=== PATIENT | male | born 1960 | race Caucasian/White ===

== ENCOUNTER 2023-12-11 09:41 | Emergency (ER) | payer MEDICARE, SELFPAY ==
[2023-12-11 09:45] VITALS: BP 127/94; PULSE 92; RESP 18; TEMP 36.3; O2SAT 94; BMI 41.3
[2023-12-11 10:00] VITALS: PULSE 72; RESP 18; O2SAT 95
--- NOTE | 2023-12-11 10:11 | ED_ITS ---
HPI - SOB/Dyspnea General Chief Complaint: Shortness of Breath/Dyspnea Stated Complaint: shortness of breath/asthma Time Seen by Provider: 12/11/23 09:58 History of Present Illness HPI Narrative: This 63-year-old male comes in reporting some worsening shortness of breath. Actually he typically uses a DuoNeb and has run out of this medicine. He states that he had some oximetry readings around 89%. Upon arrival here he is at 94% on room air with normal heart rate. He does not report any upper respiratory infection symptoms Related Data Home Medications ?Medication ?Instructions ?Recorded ?Confirmed albuterol sulfate 90 mcg/actuation 2 puff inhalation Q6H PRN wheezing 12/11/23 12/11/23 aerosol inhaler atorvastatin 40 mg tablet 40 mg PO QPM 12/11/23 12/11/23 escitalopram oxalate 10 mg tablet 10 mg PO DAILY 12/11/23 12/11/23 glipizide 10 mg tablet, extended 10 mg PO DAILY 12/11/23 12/11/23 release 24 hr ipratropium 0.5 mg-albuterol 3 mg 1 inhalation Q6H PRN dyspnea 12/11/23 (2.5 mg base)/3 mL nebulization soln metformin 500 mg tablet,extended 1,000 mg PO BID 12/11/23 12/11/23 release 24 hr Previous Rx's ?Medication ?Instructions ?Recorded ipratropium 0.5 mg-albuterol 3 mg 3 ml inhalation Q6-8H PRN #30 mL 12/11/23 (2.5 mg base)/3 mL nebulization soln Allergies Allergy/AdvReac Type Severity Reaction Status Date / Time No Known Drug Allergies Allergy Verified 12/11/23 09:49 Review of Systems Status of ROS: Reports: 10 or more systems reviewed and unremarkable except as noted in History and below Narrative: Constitutional: No fevers, no weight gain or loss. Eyes: No discharge. No vision changes. HENT: No congestion, no sore throat, no ear pain. Cardiovascular: No chest pain, no palpitations. Respiratory: No wheezes, no cough. Persistent COPD symptoms. Gastrointestinal: No abdominal pain, no vomiting, no diarrhea. Genitourinary: No dysuria, no hematuria. Musculoskeletal: Normal range of motion. Skin: No rashes, no pruritis. Neurological: No dizziness, weakness, sensory change, speech change. Endo/Heme/Allergies: No bruising or bleeding. No polydipsia. Pysch: no suicidality, no anxiety, no insomnia. All other systems reviewed and are negative. Exam Narrative: Exam Narrative: Constitutional: Well-developed, well-nourished, no acute distress. HEENT: Normocephalic, atraumatic. Neck: Normal range of motion. Nontender. Supple. Heart: Regular. No murmurs. Normal rate. Intact distal pulses. Lungs: Clear to auscultation. No chest discomfort. No wheezes, rhonchi, or rales. Abdomen: Normal bowel sounds. Nontender. No rebound tenderness. Genitalia: Deferred. Back: No midline tenderness. Normal range of motion. Extremities: Normal range of motion. No injury. Skin: Intact. No rash. Warm. No erythema or pallor. Neurologic: No altered sensation. No weakness. Alert and oriented. Psychiatric: No suicidality. No anxiety or depression. No insomnia. Nursing notes and vitals signs are reviewed. Const: Vital Signs, click to edit/add: Vital Signs - 24 hr 12/11/23 09:45 Temperature 97.3 F L Pulse Rate [Pulse Oximeter] 92 Respiratory Rate 18 Blood Pressure [Ri ght Upper Arm] 127/94 H Pulse Oximetry 94 Oxygen Delivery Me thod Room Air Course Vital Signs Vital signs: Initial Vital Signs Temperature 97.3 F L 12/11/23 09:45 Temperature Source Temporal Artery Scan 12/11/23 09:45 Pulse Rate 92 12/11/23 09:45 Respiratory Rate 18 12/11/23 09:45 Blood Pressure 127/94 H 12/11/23 09:45 Blood Pressure Mean 105 12/11/23 09:45 Blood Pressure Position Sitting 12/11/23 09:45 Pulse Oximetry 94 12/11/23 09:45 Oxygen Delivery Method Room Air 12/11/23 09:45 Vital Signs Temperature 97.3 F L 12/11/23 09:45 Pulse Rate 92 12/11/23 09:45 Respiratory Rate 18 12/11/23 09:45 Blood Pressure 127/94 H 12/11/23 09:45 Pulse Oximetry 94 12/11/23 09:45 Oxygen Delivery Method Room Air 12/11/23 09:45 Temperature 97.3 F L 12/11/23 09:45 Pulse Rate 92 12/11/23 09:45 Respiratory Rate 18 12/11/23 09:45 Blood Pressure 127/94 H 12/11/23 09:45 Pulse Oximetry 94 12/11/23 09:45 Oxygen Delivery Method Room Air 12/11/23 09:45 MDM - SOB/Dyspnea MDM Narrative Medical decision making narrative: This patient typically uses a DuoNeb to manage his chronic breathing. He is also taking a preventative medicine it is a generic version of Advair. He arrives with normal vital signs and is not showing any sign of respiratory distress. Essentially he is looking for a refill of his DuoNeb medication. He did receive an oral dose of dexamethasone 10 mg here. I did also provide a prescription for DuoNeb medication. Discharge Plan Discharge Clinical Impression: COPD (chronic obstructive pulmonary disease) Patient Disposition: Home, Self-Care Condition: Stable Additional Instructions: Use medication as prescribed. Follow up with MD for ongoing management or return if worsening. Prescriptions: New ipratropium-albuterol 0.5 mg-3 mg(2.5 mg base)/3 mL solution for nebulization 3 ml inhalation Q6-8H PRNQty: 30 0RF No Action atorvastatin 40 mg tablet 40 mg PO QPM ipratropium-albuterol 0.5 mg-3 mg(2.5 mg base)/3 mL solution for nebulization 1 INHALATION Q6H PRN (Reason: dyspnea) glipizide 10 mg tablet extended release 24hr 10 mg PO DAILY albuterol sulfate 90 mcg/actuation HFA aerosol inhaler 2 puff inhalation Q6H PRN (Reason: wheezing) metformin 500 mg tablet extended release 24 hr 1,000 mg PO BID escitalopram oxalate 10 mg tablet 10 mg PO DAILY Stand Alone Forms: [employer] Info Instructions
[2023-12-11] MEDS: dexAMETHasone 10 MG/ML inj PO (10:15)
[2023-12-11 10:31] VITALS: BP 127/94; PULSE 92; RESP 18; TEMP 36.3
== END 2023-12-11 10:31 | disposition home or self-care (01) ==
LOC: ED 10:22
PROVIDERS: Emergency Provider Emergency Medicine Emergency Medical Services
DX: J44.9 Chronic obstructive pulmonary disease, unspecified (principal)
CPT/HCPCS: 99283; 99284; J1100

== ENCOUNTER 2024-01-01 06:53 | Emergency (ER) | payer MEDICARE, SELFPAY ==
[2024-01-01] VITALS (12 sets, daily range): BP systolic 123–149; BP diastolic 80–89; PULSE 86–100; RESP 22; TEMP 36.6; O2SAT 90–95; BMI 44.1
--- NOTE | 2024-01-01 07:18 | ED.GENADULT ---
HPI - General Adult General Chief complaint: Arrhythmia/Palpitations Stated complaint: elevated heart rate,chest discomfort Time Seen by Provider: 01/01/24 07:41 History of Present Illness HPI narrative: comes to ed with concerns of feeling sob, heart beating fast some jab of cp. feels increased sob with exertion. did drive self to ed. has a known aortic aneurysm that is being monitored. 63-year-old man presenting to the emergency department with concern of rapidly beating heart. He woke this morning feeling short of breath and with a heart rate in the 120s and at some point had a twinge of left low chest pain. Was very brief. Feeling improved now. He admits that his anxiety got the best of him. Has been more short of breath lately with some wheeze. He is requesting a refill on his albuterol inhaler which he says last him a few months. He also notes having a nebulizer which he used around midnight. He is unsure what he puts in at though does have DuoNebs available. He denies a history of COPD but does endorse a history of asthma. He may be using a steroid inhaler; budesonide? Denies history of CHF. Notes a monitored aortic aneurysm. Other review of systems he does reveal that he has been urinating quite a bit. There is no underlying history of diabetes. He would like a blood sugar check as it has been a couple of weeks. No fever. Has had a little cough lately. Is hoping to be discharged today as has a lot to do today specifically with his grandson. Last seen in this emergency department 3 weeks ago with a COPD exacerbation. Does have a history of diabetes as well. Related Data Home Medications ?Medication ?Instructions ?Recorded ?Confirmed albuterol sulfate 90 mcg/actuation 2 puff inhalation Q6H PRN wheezing 12/11/23 12/11/23 aerosol inhaler atorvastatin 40 mg tablet 40 mg PO QPM 12/11/23 12/11/23 escitalopram oxalate 10 mg tablet 10 mg PO DAILY 12/11/23 12/11/23 glipizide 10 mg tablet, extended 10 mg PO DAILY 12/11/23 12/11/23 release 24 hr ipratropium 0.5 mg-albuterol 3 mg 1 inhalation Q6H PRN dyspnea 12/11/23 (2.5 mg base)/3 mL nebulization soln metformin 500 mg tablet,extended 1,000 mg PO BID 12/11/23 12/11/23 release 24 hr Previous Rx's ?Medication ?Instructions ?Recorded ipratropium 0.5 mg-albuterol 3 mg 3 ml inhalation Q6-8H PRN #30 mL 12/11/23 (2.5 mg base)/3 mL nebulization soln Allergies Allergy/AdvReac Type Severity Reaction Status Date / Time No Known Drug Allergies Allergy Verified 12/11/23 09:49 Review of Systems Status of ROS: Reports: 6 or more systems reviewed and unremarkable except as noted in History and below [facility] Social History Smoking Status: Former smoker Do you use any of these nicotine containing products: None How often do you have a drink containing alcohol: never AUDIT-C Alcohol total score: 0 Non-prescribed substance use: denies use service: No Exam Narrative: Exam Narrative: Pleasant. NAD. Mildly anxious perhaps. Cranial nerves 2-12 intact. Moving all extremities without difficulty. Oropharynx is sticky. I thought I caught a wiff of ketones. Skin is warm and dry. Lower extremities with mild pretibial pitting edema. Lungs actually sound clear though distant. Same for heart would sounds to be in regular rhythm albeit a little elevated rate. Distant. Abdomen is obese and soft and nontender. Not able to reproduce this area of chest discomfort. Const: Vital Signs, click to edit/add: Vital Signs - 24 hr 01/01/24 07:01 Temperature 98 F Pulse Rate [Pulse Oximeter] 98 Respiratory Rate 22 Blood Pressure [Le ft Upper Arm] 127/82 Pulse Oximetry 93 Oxygen Delivery Me thod Room Air Documenting provider has reviewed patient's vital signs: yes Course Vital Signs Vital signs: Initial Vital Signs Temperature 98 F 01/01/24 07:01 Temperature Source Temporal Artery Scan 01/01/24 07:01 Pulse Rate 98 01/01/24 07:01 Pulse Rhythm Regular 01/01/24 07:01 Respiratory Rate 22 01/01/24 07:01 Blood Pressure 127/82 01/01/24 07:01 Blood Pressure Mean 97 01/01/24 07:01 Blood Pressure Position Supine 01/01/24 07:01 Pulse Oximetry 93 01/01/24 07:01 Oxygen Delivery Method Room Air 01/01/24 07:01 Vital Signs Temperature 98 F 01/01/24 07:01 Pulse Rate 98 01/01/24 07:01 Respiratory Rate 22 01/01/24 07:01 Blood Pressure 127/82 01/01/24 07:01 Pulse Oximetry 93 01/01/24 07:01 Oxygen Delivery Method Room Air 01/01/24 07:01 Temperature 98 F 01/01/24 07:01 Pulse Rate 98 01/01/24 07:01 Respiratory Rate 22 01/01/24 07:01 Blood Pressure 127/82 01/01/24 07:01 Pulse Oximetry 93 01/01/24 07:01 Oxygen Delivery Method Room Air 01/01/24 07:01 Medications Administered Medications: Generic Name Dose Route Start Last Admin Trade Name Freq PRN Reason Stop Dose Admin Sodium Chloride 500 mls @ 1,000 mls/hr 01/01/24 07:30 01/01/24 07:41 0.9 % Sodium Chloride 500 Ml IV 01/01/24 07:59 1,000 mls/hr .Q30M ONE Administration Medical Decision Making MDM Narrative Medical decision making narrative: Regarding his lungs, differential does include pneumonia, COPD or asthma exacerbation, tachyarrhythmia. I do not think that this has represented ischemic cardiovascular event. I do think anxiety is playing a role. His difficulty breathing might be poorly controlled restrictive or reactive lung disease compounded by belly restriction. Uncontrolled diabetes may have set off of heart rate as described. I have EKG prior to seeing Mr. Quiroz showing a sinus tachycardia at 102 Do not appreciate ischemic changes. There is some baseline irritability. Will check labs. 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 Discussed that what sounds like his steroid inhaler does not offer immediate relief for his breathing. Would try to clarify meds further. Medical Records Medical records reviewed: Yes I reviewed the patient's medical records ECG Data Attestation: I personally reviewed and interpreted this ECG as follows: (sinus tachycardia at 102 Do not appreciate ischemic changes. There is some baseline irritability) Discharge Plan Discharge Prescriptions: No Action atorvastatin 40 mg tablet 40 mg PO QPM ipratropium-albuterol 0.5 mg-3 mg(2.5 mg base)/3 mL solution for nebulization 1 INHALATION Q6H PRN (Reason: dyspnea) glipizide 10 mg tablet extended release 24hr 10 mg PO DAILY albuterol sulfate 90 mcg/actuation HFA aerosol inhaler 2 puff inhalation Q6H PRN (Reason: wheezing) metformin 500 mg tablet extended release 24 hr 1,000 mg PO BID escitalopram oxalate 10 mg tablet 10 mg PO DAILY ipratropium-albuterol 0.5 mg-3 mg(2.5 mg base)/3 mL solution for nebulization 3 ml inhalation Q6-8H PRNQty: 30 0RF Follow Up/Referrals: Provider,Not a Local [Primary Care Provider] -
--- NOTE | 2024-01-01 07:30 | XR_ITS ---
Patient: DANAE OLVERA Facility:?[facility] Patient ID:?[id number] Site Patient ID:?[id number]. Site :?[id number] Study:?XRay-Chest PORTABLE-01/01/2024 7:55:35 AM Ordering Physician:Beck Maxwell Final Report: INDICATION: Chest pain. TECHNIQUE: Chest 1 views. COMPARISON: None. FINDINGS: Cardiomegaly without pulmonary edema. No significant pleural effusion, pneumothorax or focal consolidation. No acute osseous findings. IMPRESSION: Cardiomegaly without pulmonary edema. No acute process. Dictated by Maria G Talbert MD @ 01/01/2024 8:08:31 AM Signed by:?Maria G Talbert MD @01/01/2024 8:08:31 AM (Electronic Signature)
[2024-01-01] MEDS: 0.9 % SODIUM CHLORIDE 500 ML 500 ML 1000 ML IV (07:41)
[2024-01-01 07:49] LABS: Basophils Absolute Auto 0.02 K/uL (0.00-0.30); Basophils Percent Auto 0.3 % (0.0-3.0); Eosinophils Absolute Auto 0.09 K/uL (0.00-0.50); Eosinophils Percent Auto 1.4 % (0.0-7.0); Hematocrit 41.2 % (37.0-53.0); Hemoglobin* 13.8 gm/dL (13.5-17.5); Immature Granulocytes Abs Auto 0.01 K/uL (0.00-0.30); Immature Granulocytes Pct Auto 0.2 %; Lymphocytes Percent Auto 9.3 % (20-44); Mean Corpuscular HGB Conc 34 gm/dL (32-36); Mean Corpuscular Hemoglobin 28 pg (26-34); Mean Corpuscular Volume 83 fL (80-100); Monocytes Percent Auto 6.4 % (0.0-11.0); Neutrophils Percent Auto 82.4 % (42.0-72.0); Platelet Count* 185 K/uL (140-440); RDW Coefficient of Variation % 13.5 % (11.5-15.5); Red Blood Count 4.98 m/uL (4.30-5.90); White Blood Count* 6.43 K/uL (4.50-11.00)
[2024-01-01 07:56] LABS: Slide Review Reflex No
[2024-01-01 08:01] LABS: Chloride* 98 mmol/L (96-114)
[2024-01-01 08:02] LABS: Potassium* 4.3 mmol/L (3.6-5.1); Sodium* 134 mmol/L (135-149)
[2024-01-01 08:04] LABS: Alanine Aminotransferase* 27 U/L (4-50); Alkaline Phosphatase* 106 U/L (40-150); Anion Gap 7 mEq/L (7-15); Aspartate Amino Transferase* 20 U/L (12-35); Bilirubin Direct* 0.1 mg/dL (0.0-0.5); Bilirubin Total* 0.5 mg/dL (0.1-1.5); Blood Urea Nitrogen* 22 mg/dL (7-30); Carbon Dioxide* 29 mmol/L (20-32); Creatinine* 0.7 mg/dL (0.5-1.5); Est. Creatinine Clearance* 71.25; Estimated Glomerular Filt Rate 102 ml/min; Glucose* 259 mg/dL (60-115); Total Protein* 6.8 g/dL (6.0-8.3)
[2024-01-01 08:05] LABS: Calcium* 9.5 mg/dL (8.4-10.6)
--- NOTE | 2024-01-01 08:19 | ED_ITS ---
HPI - General Adult General Chief complaint: Arrhythmia/Palpitations Stated complaint: elevated heart rate,chest discomfort Time Seen by Provider: 01/01/24 07:41 Source: patient Mode of arrival: ambulatory Limitations: no limitations History of Present Illness HPI narrative: Took over the care of Mr. Quiroz. Patient is a 63-year-old male with a history of asthma, obesity, diabetes, anxiety who presents today just before 8:00 a.m. with an episode of shortness of breath that started at 1:00 a.m. in the morning. Patient states that he got up to let his dogs out and as he was doing this he felt acutely short of breath and his heart was racing, he states that he put a finger pulse ox on his oxygen saturation was 89% and his pulse was 120. He states that he went back to bed and woke up around 4:00 a.m. and did not feel any better. He then proceeded to come to the ER for evaluation a few hours later. By the time he arrives in the ER he states that he feels better. The patient states that this has happened to him 1 time in the past and he came to the ER for evaluation ?nothing was found?. This is not something that happens regularly. Patient states that he takes albuterol at home daily and he is almost out of his inhaler. He states that he sees a doctor as he needs to but states that he does not have a regular doctor that he sees. He also states that he was on a daily asthma medication, unsure of what it was but he ran out of that also. Lastly, patient is concerned that his blood sugars might be elevated or poorly controlled. He complains of increased urination and thirst. Related Data Home Medications ?Medication ?Instructions ?Recorded ?Confirmed albuterol sulfate 90 mcg/actuation 2 puff inhalation Q6H PRN wheezing 12/11/23 12/11/23 aerosol inhaler atorvastatin 40 mg tablet 40 mg PO QPM 12/11/23 12/11/23 escitalopram oxalate 10 mg tablet 10 mg PO DAILY 12/11/23 12/11/23 glipizide 10 mg tablet, extended 10 mg PO DAILY 12/11/23 12/11/23 release 24 hr ipratropium 0.5 mg-albuterol 3 mg 1 inhalation Q6H PRN dyspnea 12/11/23 (2.5 mg base)/3 mL nebulization soln metformin 500 mg tablet,extended 1,000 mg PO BID 12/11/23 12/11/23 release 24 hr Previous Rx's ?Medication ?Instructions ?Recorded ipratropium 0.5 mg-albuterol 3 mg 3 ml inhalation Q6-8H PRN #30 mL 12/11/23 (2.5 mg base)/3 mL nebulization soln albuterol sulfate 90 mcg/actuation 2 puff inhalation QID PRN 01/01/24 aerosol inhaler shortness of breath or wheezing #8.5 grams ipratropium 0.5 mg-albuterol 3 mg 3 ml inhalation QID PRN #90 mL 01/01/24 (2.5 mg base)/3 mL nebulization soln Allergies Allergy/AdvReac Type Severity Reaction Status Date / Time No Known Drug Allergies Allergy Verified 12/11/23 09:49 Review of Systems Status of ROS: Reports: 10 or more systems reviewed and unremarkable except as noted in History and below PFSH [facility] Social History Smoking Status: Former smoker Do you use any of these nicotine containing products: None How often do you have a drink containing alcohol: never AUDIT-C Alcohol total score: 0 Non-prescribed substance use: denies use service: No Exam Narrative: Exam Narrative: Well-nourished well-developed patient in no acute distress. When I enter the room to examine the patient, he is sleeping. His heart rate is 89, oxygen saturation is 94%. Upon arousal, Alert and oriented. Answers questions appropriately. Mood and affect are appropriate. Thoughts are goal oriented and rational. No tangential or magical thinking noted. Patient speaks in full sentences without needing to catch him breath. HEENT: Normocephalic atraumatic. Pupils are equally round reactive to light. Extraocular muscles are intact. Conjunctivae are moist without any icterus noted. Moist, sticky mucous membranes. Posterior pharynx is normal. Cardiovascular: Heart is regular rate and rhythm S1 and S2 are present without any murmurs. Lungs: Clear to auscultation bilaterally but breath sounds decreased bilaterally. Abdomen: Soft, protuberant, nontender. Extremities: Bilateral lower extremities show 1+ pitting edema bilaterally Skin: Well perfused. Const: Vital Signs, click to edit/add: Vital Signs - 24 hr 01/01/24 07:01 01/01/24 07:10 01/01/24 07:11 Temperature 98 F Pulse Rate 98 100 Pulse Rate [Pulse Oximeter] 98 Respiratory Rate 22 Blood Pressure 127/82 Blood Pressure [Le ft Upper Arm] 127/82 Pulse Oximetry 93 94 93 Oxygen Delivery Me thod Room Air 01/01/24 07:15 01/01/24 07:30 01/01/24 07:32 Temperature Pulse Rate 97 95 98 Pulse Rate [Pulse Oximeter] Respiratory Rate Blood Pressure 149/89 H Blood Pressure [Le ft Upper Arm] Pulse Oximetry 94 94 90 Oxygen Delivery Me thod 01/01/24 07:45 01/01/24 08:00 01/01/24 08:02 Temperature Pulse Rate 93 94 93 Pulse Rate [Pulse Oximeter] Respiratory Rate Blood Pressure 123/80 Blood Pressure [Le ft Upper Arm] Pulse Oximetry 92 90 92 Oxygen Delivery Me thod 01/01/24 08:15 01/01/24 08:30 01/01/24 08:32 Temperature Pulse Rate 92 86 89 Pulse Rate [Pulse Oximeter] Respiratory Rate Blood Pressure 142/84 H Blood Pressure [Le ft Upper Arm] Pulse Oximetry 90 95 94 Oxygen Delivery Me thod Course Course ED Course: I reviewed the patient's EKG which showed sinus tachycardia with a pulse of 102, left axis deviation and incomplete right bundle-branch block. His CBC is unremarkable. Chemistries show a sodium of 134, otherwise unremarkable. Glucose is elevated at 259. LFTs are normal. BNP is less than 20. Normal CRP. UA has 2+ glucose. Normal troponin. Reviewed his chest x-ray which did not show any acute pathology. Went back into the room to reviews patient's lab results and he stated that his wheezing was coming back and he felt anxious. Examine him at this point and he had no wheezing, oxygenation was in the mid 90s and his respiratory rate was unchanged. I discussed with him that I think his anxiety is playing a part in his symptoms. Patient did feel reassured after a lung examination revealed no active wheezing. Vital Signs Vital signs: Initial Vital Signs Temperature 98 F 01/01/24 07:01 Temperature Source Temporal Artery Scan 01/01/24 07:01 Pulse Rate 98 01/01/24 07:01 Pulse Rhythm Regular 01/01/24 07:01 Respiratory Rate 22 01/01/24 07:01 Blood Pressure 127/82 01/01/24 07:01 Blood Pressure Mean 97 01/01/24 07:01 Blood Pressure Position Supine 01/01/24 07:01 Pulse Oximetry 93 01/01/24 07:01 Oxygen Delivery Method Room Air 01/01/24 07:01 Vital Signs Temperature 98 F 01/01/24 07:01 Pulse Rate 98 01/01/24 07:01 Respiratory Rate 22 01/01/24 07:01 Blood Pressure 127/82 01/01/24 07:01 Pulse Oximetry 93 01/01/24 07:01 Oxygen Delivery Method Room Air 01/01/24 07:01 Temperature 98 F 01/01/24 07:01 Pulse Rate 89 01/01/24 08:32 Respiratory Rate 22 01/01/24 07:01 Blood Pressure 142/84 H 01/01/24 08:32 Pulse Oximetry 94 01/01/24 08:32 Oxygen Delivery Method Room Air 01/01/24 07:01 Medications Administered Medications: Discontinued Medications Generic Name Dose Route Start Last Admin Trade Name Freq PRN Reason Stop Dose Admin Sodium Chloride 500 mls @ 1,000 mls/hr 01/01/24 07:30 01/01/24 08:22 0.9 % Sodium Chloride 500 Ml IV 01/01/24 07:59 Infused .Q30M ONE Infusion Medical Decision Making MDM Narrative Medical decision making narrative: 63-year-old male with a history of asthma presenting with acute shortness of breath and palpitations. Patient remained asymptomatic while he was in the ER. Patient does tell me that he feels very fatigued during the day and falls asleep frequently. He has not had a sleep study in the past. Lastly he does tell me that he is taking all of his diabetic medications but has not been checking his sugars and unclear what his follow-up has been like. At this time I recommend the patient establish care with 1 primary care provider that he can see regularly. He needs to have his asthma care and his diabetic management maximized. I recommend a sleep study. He may also benefit from a stress test if this is not been done recently. Lab Data Lab results reviewed: Yes I reviewed the patient's lab results Labs: Lab Results 01/01/24 01/01/24 01/01/24 Range/Units 07:40 08:21 08:43 WBC 6.43 (4.50-11.00) K/uL RBC 4.98 (4.30-5.90) m/uL Hgb 13.8 (13.5-17.5) gm/dL Hct 41.2 (37.0-53.0) % MCV 83 (80-100) fL MCH 28 (26-34) pg MCHC 34 (32-36) gm/dL RDW Coeff of [place] 13.5 (11.5-15.5) % Plt Count 185 (140-440) K/uL Neut % (Auto) 82.4 H (42.0-72.0) % Lymph % (Auto) 9.3 L (20-44) % [place] % (Auto) 6.4 (0.0-11.0) % Eos % (Auto) 1.4 (0.0-7.0) % Baso % (Auto) 0.3 (0.0-3.0) % Neut # (Auto) 5.30 (1.7-7.0) K/uL Lymph # (Auto) 0.60 L (0.90-2.90) K/uL [place] # (Auto) 0.40 (0.00-0.90) K/UL Eos # (Auto) 0.09 (0.00-0.50) K/uL Baso # (Auto) 0.02 (0.00-0.30) K/uL Abs Immat Gran (auto) 0.01 (0.00-0.30) K/uL Imm/Tot Granulo (auto) 0.2 % Sodium 134 L (135-149) mmol/L Potassium 4.3 (3.6-5.1) mmol/L Chloride 98 (96-114) mmol/L Carbon Dioxide 29 (20-32) mmol/L Anion Gap 7 (7-15) mEq/L BUN 22 (7-30) mg/dL Creatinine 0.7 (0.5-1.5) mg/dL Estimated Creat Clear 71.25 Estimated GFR 102 ml/min Glucose 259 H (60-115) mg/dL Calcium 9.5 (8.4-10.6) mg/dL Total Bilirubin 0.5 (0.1-1.5) mg/dL Direct Bilirubin 0.1 (0.0-0.5) mg/dL AST 20 (12-35) U/L ALT 27 (4-50) U/L Alkaline Phosphatase 106 (40-150) U/L Troponin I < 0.01 L (0.01-0.04) ng/mL C-Reactive Protein 0.7 (0.5-1.0) mg/dL NT-Pro-B Natriuret Pep < 20 pg/mL Total Protein 6.8 (6.0-8.3) g/dL Albumin 4.0 (3.3-5.0) g/dL Urine Color Yellow (Yellow) Urine Appearance Clear (Clear) Urine pH 5.5 (5.0-8.5) Ur Specific [place] 1.020 (1.000-1.030) Urine Protein Negative (Negative) Urine Glucose (UA) 2+ A (Negative) Urine Ketones Negative (Negative) Urine Blood Negative (Negative) Urine Nitrite Negative (Negative) Urine Bilirubin Negative (Negative) Urine Urobilinogen 0.2 (0.2-1.0) Ur Leukocyte Esterase Negative (Negative) Urine RBC 0-2 (0-2) Urine WBC 0-2 (0-5) Ur Squamous Epith Cells Few (None-Few) Urine Bacteria None (None) SARS-CoV-2 (PCR) Negative SARS-CoV-2 (Negative) Influenza Type A (PCR) Negative PCR FLU A (Negative) Influenza Type B (PCR) Negative PCR FLU B (Negative) RSV (PCR) Negative PCR RSV (Negative) Imaging Data Chest x-ray: Attestation: I have reviewed the pertinent imaging results. Radiologist's impression: Chest 1 views. COMPARISON: None. FINDINGS: Cardiomegaly without pulmonary edema. No significant pleural effusion, pneumothorax or focal consolidation. No acute osseous findings. IMPRESSION: Cardiomegaly without pulmonary edema. No acute process. ECG Data Attestation: I personally reviewed and interpreted this ECG as follows: Discharge Plan Discharge Clinical Impression: Anxiety, Sinus tachycardia, Asthma, Diabetes Patient Disposition: Home, Self-Care Additional Instructions: Your albuterol inhaler has been refilled and sent to your pharmacy. DuoNebs were also refilled and sent to your pharmacy. Your glucose was elevated today. I recommend you follow-up with your primary care provider to discuss your diabetes medications and see if they need to be changed. Please follow-up in primary care to clarify your lung disease and whether not yo ur medications are working; optimize treatment. At this time I recommend you establish care with 1 primary care provider that you can see regularly. You needs to have your asthma care and you diabetic management maximized- you may need changes in your medications. I also recommend a sleep study- this may answer why feel so tired during the day and short of breath 1st thing in the morning. You may also benefit from a stress test if this is not been done recently. This is a test that makes sure that your heart is healthy. You should discuss this with your primary care provider. Prescriptions: New albuterol sulfate 90 mcg/actuation HFA aerosol inhaler 2 puff inhalation QID PRN (Reason: shortness of breath or wheezing) Qty: 8.5 1RF ipratropium-albuterol 0.5 mg-3 mg(2.5 mg base)/3 mL solution for nebulization 3 ml inhalation QID PRNQty: 90 0RF No Action atorvastatin 40 mg tablet 40 mg PO QPM ipratropium-albuterol 0.5 mg-3 mg(2.5 mg base)/3 mL solution for nebulization 1 INHALATION Q6H PRN (Reason: dyspnea) glipizide 10 mg tablet extended release 24hr 10 mg PO DAILY albuterol sulfate 90 mcg/actuation HFA aerosol inhaler 2 puff inhalation Q6H PRN (Reason: wheezing) metformin 500 mg tablet extended release 24 hr 1,000 mg PO BID escitalopram oxalate 10 mg tablet 10 mg PO DAILY ipratropium-albuterol 0.5 mg-3 mg(2.5 mg base)/3 mL solution for nebulization 3 ml inhalation Q6-8H PRNQty: 30 0RF Follow Up/Referrals: Provider,Not a Local [Primary Care Provider] - Stand Alone Forms: [employer] Info Instructions
[2024-01-01 08:20] LABS: NT Pro B Type NatriureticPept* < 20 pg/mL
[2024-01-01 08:53] LABS: Appearance Urine Clear (Clear); Bilirubin Urine Negative (Negative); Blood Urine Negative (Negative); Color Urine Yellow (Yellow); Glucose Urine 2+ (Negative); Ketones Urine Negative (Negative); Leukocyte Esterase Urine Negative (Negative); Nitrite Urine Negative (Negative); Protein Urine Negative (Negative); Urobilinogen Urine 0.2 (0.2-1.0); pH Urine 5.5 (5.0-8.5)
[2024-01-01 08:58] LABS: C Reactive Protein* 0.7 mg/dL (0.5-1.0)
[2024-01-01 09:04] LABS: RBC Urine 0-2 (0-2); Squamous Epithelial Cell Urine Few (None-Few); WBC Urine 0-2 (0-5)
[2024-01-01 09:10] LABS: Troponin I* < 0.01 ng/mL (0.01-0.04)
[2024-01-01 09:15] LABS: PCR FLU A Negative PCR FLU A (Negative); PCR FLU B Negative PCR FLU B (Negative); PCR RSV Negative PCR RSV (Negative); SARS PCR* Negative SARS-CoV-2 (Negative)
== END 2024-01-01 09:39 | disposition home or self-care (01) ==
PROVIDERS: Family Medicine; Emergency Provider Family Medicine
DX: F41.9 Anxiety disorder, unspecified (principal); R00.0 Tachycardia, unspecified; J45.909 Unspecified asthma, uncomplicated; E11.9 Type 2 diabetes mellitus without complications
CPT/HCPCS: 36415; 71045; 80048; 80076; 81001; 83880; 84484; 85025; 86140; 87631; 96360; 99284; J7030

== ENCOUNTER 2024-01-18 21:10 | Emergency (ER) | payer MEDICARE, SELFPAY ==
[2024-01-18 21:18] VITALS: BP 153/90; PULSE 85; PULSE 87; RESP 18; RESP 20; TEMP 37.1; O2SAT 96; O2SAT 97; BMI 39.9
--- NOTE | 2024-01-18 21:29 | ED_ITS ---
HPI - Chest Pain General Chief Complaint: Chest Pain Stated Complaint: Chest pain Time Seen by Provider: 01/18/24 21:28 History of Present Illness HPI narrative: 63-year-old male presenting to the ER today for chest pain. He has a history of asthma, elevated BMI, diabetes anxiety. He also reports a history of a thoracic aortic aneurysm (apparently diagnosed incidentally several years ago and has been following with Cardiology through [place] with annual surveillance CTs. He says that his aneurysm has been stable in size for several years). Per triage, He reports that he has had chest pain off on all days along with episodes lasting only a few seconds each. No nausea. No vomiting. No shortness of breath. No cough. No recent fever. Patient says that his pain started this morning when he was at work around 9:00 a.m.. He does not really know what brought it on. It happened after he was at the office and walking out to his truck. 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 He notes that he was stressed out this morning at work because 1 of his coworkers got fired. He is worried that he may get fire next. Apparently he gets a lot of, ?Perks? that he thinks might make him a target for termination. He also notices a lot of stress at home with his . It sounds like they argue a lot and they are having financial stress. His pain and this morning was a very brief twinge of pain affecting his left anterior chest wall just lateral to the left sternal border inferior to his nipple. It happened a few times in each episode only lasted a 2nd or so. No clear trigger. Not clearly related to exertion. He had a few more episodes of pain during the afternoon while at work. However it sounds like it was sporadic and all episodes were brief. He had more episodes of of pain this evening at home, after work. He was doing some light exercise. He had a walk down the steps to his basement [facility] and then come back up. He made a total of 2 cyst trips down and up steps. During 1 of the trips he had a couple of twinges of pain. During the other Trip he had no pain. He has no history of coronary disease. It does not sound like he has ever had an angiogram. He may have had a stress test some years ago through his doctors at [place]. No other symptoms today. No shortness of breath. No cough. No hemoptysis. No abdominal pain. He does know that he has gallstones but has not been having any pain like that for at least several days. No swelling in his legs. No recent travel. He does not take any aspirin or blood thinners. He is a nonsmoker. He has a history of asthma but rarely has to use his nebulizer. Risk factors for coronary disease include male gender, age, elevated BMI, diabetes, dyslipidemia. He has a family history in his uncle. Related Data Home Medications ?Medication ?Instructions ?Recorded ?Confirmed atorvastatin 40 mg tablet 40 mg PO QPM 12/11/23 01/18/24 escitalopram oxalate 10 mg tablet 10 mg PO DAILY 12/11/23 01/18/24 glipizide 10 mg tablet, extended 10 mg PO DAILY 12/11/23 01/18/24 release 24 hr metformin 500 mg tablet,extended 1,000 mg PO BID 12/11/23 01/18/24 release 24 hr ondansetron HCl 4 mg tablet 4 mg PO Q8H PRN 01/18/24 01/18/24 Previous Rx's ?Medication ?Instructions ?Recorded ipratropium 0.5 mg-albuterol 3 mg 3 ml inhalation Q6-8H PRN #30 mL 12/11/23 (2.5 mg base)/3 mL nebulization soln albuterol sulfate 90 mcg/actuation 2 puff inhalation QID PRN 01/01/24 aerosol inhaler shortness of breath or wheezing #8.5 grams Allergies Allergy/AdvReac Type Severity Reaction Status Date / Time No Known Drug Allergies Allergy Verified 01/18/24 21:28 [facility] Social History Smoking Status: Former smoker Do you use any of these nicotine containing products: None Second hand tobacco smoke exposure: No How often do you have a drink containing alcohol: never AUDIT-C Alcohol total score: 0 Non-prescribed substance use: denies use service: No Exam Narrative Exam Narrative: Constitutional: Appears well-developed and well-nourished. Alert. Conversant. Non toxic. HENT: Head: Atraumatic. Nose: Nose normal. Mouth/Throat: Oral mucosa is clear and moist. no trismus. Pharynx normal. Tonsils symmetric. No tonsillar enlargement, erythema, or exudate. Eyes: Conjunctivae normal. EOM normal. Pupils equal, round, and reactive to light. No scleral icterus. Neck: Normal range of motion. Neck supple. No tracheal deviation present. Cardiovascular: Normal rate, regular rhythm. He did have 1 skipped beat while I was auscultating his heart and this corresponded to a PVC on his monitor but did not correspond to a episode of pain. No gallop. No friction rub. No murmur heard. Symmetric radial and PT artery pulses Pulmonary/Chest: Effort normal. No stridor. No respiratory distress. No wheezes. No rales. No rhonchi . No tenderness. No rash. Abdominal: Soft. No distension. No mass. No tenderness. No Magallanes sign No rebound. No guarding. Musculoskeletal: RUE: Normal range of motion. No tenderness. No deformity LUE: Normal range of motion. No tenderness. No deformity RLE: Normal range of motion. No edema. No tenderness. No deformity LLE: Normal range of motion. No edema. No tenderness. No deformity Neurological: Alert and oriented to person, place, and time. Normal strength. CN II-VII intact. No sensory deficit. GCS eye subscore is 4. GCS verbal subscore is 5. GCS motor subscore is 6. Normal coordination Skin: Skin is warm and dry. No rash noted. No pallor. Normal capillary refill. Psychiatric: Normal mood. Somewhat anxious. He does talk about a lot of stress at home and his job. He jumps rapidly from topic to topic. Const Vital Signs, click to edit/add: Vital Signs - 24 hr 01/18/24 21:18 01/18/24 21:18 01/18/24 21:59 Temperature 98.7 F Pulse Rate 87 Pulse Rate [Right Pulse Oximeter] 85 Respiratory Rate 20 18 Blood Pressure 153/90 H Blood Pressure [Right Upper Arm] 153/90 H Pulse Oximetry 97 96 96 Oxygen Delivery Method Room Air 01/18/24 23:02 01/18/24 23:20 Temperature 98.7 F Pulse Rate 78 Pulse Rate [Right Pulse Oximeter] 78 Respiratory Rate 20 20 Blood Pressure 131/89 Blood Pressure [Right Upper Arm] 128/84 Pulse Oximetry 92 92 Oxygen Delivery Method Room Air Course Course ED Course: Recheck-notes that after he received his baby aspirin his chest pain. When the patient reported this to me, I remarked that it was unusual for baby aspirin to cause such good analgesia and that it was not intended as a analgesics, but rather as an anti-platelet agent for potential ACS, the patient then said he started feeling his chest pain again. Suggest a possible placebo effect in response to the aspirin. Repeat heart exam is still normal. Lung exam still cleared. No wheezing. Vital Signs Vital signs: Initial Vital Signs Temperature 98.7 F 01/18/24 21:18 Temperature Source Temporal Artery Scan 01/18/24 21:18 Pulse Rate 87 01/18/24 21:18 Respiratory Rate 20 01/18/24 21:18 Respiratory Effort Normal, Spontaneous, Non-Labored 01/18/24 21:18 Respiratory Depth Normal 01/18/24 21:18 Respiratory Pattern Normal 01/18/24 21:18 Blood Pressure 153/90 H 01/18/24 21:18 Blood Pressure Mean 111 H 01/18/24 21:18 Blood Pressure Position Sitting 01/18/24 21:18 Pulse Oximetry 97 01/18/24 21:18 Oxygen Delivery Method Room Air 01/18/24 21:18 Vital Signs Temperature 98.7 F 01/18/24 21:18 Pulse Rate 87 01/18/24 21:18 Respiratory Rate 20 01/18/24 21:18 Blood Pressure 153/90 H 01/18/24 21:18 Pulse Oximetry 97 01/18/24 21:18 Oxygen Delivery Method Room Air 01/18/24 21:18 Temperature 98.7 F 01/18/24 23:20 Pulse Rate 78 01/18/24 23:20 Respiratory Rate 20 01/18/24 23:20 Blood Pressure 128/84 01/18/24 23:20 Pulse Oximetry 92 01/18/24 23:20 Oxygen Delivery Method Room Air 01/18/24 23:20 Medications Administered Medications: Discontinued Medications Generic Name Dose Route Start Last Admin Trade Name Freq PRN Reason Stop Dose Admin Aspirin 324 mg 01/18/24 21:52 01/18/24 21:56 Aspirin 81 Mg Tab.Chew PO 01/18/24 21:53 324 mg ONCE ONE Administration MDM - Chest Pain MDM Narrative Medical decision making narrative: This patient presents to the ER today for evaluation of chest pain. Differential was broad. No evidence of palpitations, syncope or other cardiac dysrhythmia. We considered possible ACS, however description of the symptoms would be atypical. He is only having brief twinges of pain which last a 2nd or less each episode. Nonetheless given age and risk factors, workup with EKG and troponin is negative. HEART score is 4. Given time since onset of symptoms, we did obtain an delta troponins which are undetectable. I do not think the patient needs to be admitted for further sets of enzymes. Although pain is pretty atyp ical for ACS would recommend close outpatient follow-up for further workup and consideration for stress testing. EKG shows no evidence for pericarditis. Clinical presentation not suggestive of myocarditis. Chest x-ray shows no evidence for pneumonia, pneumothorax, pulmonary edema, pleural effusion, rib fracture, cardiomegaly. He does have a history of a thoracic aortic aneurysm, but Mediastinum is normal on the x-ray. The patient has no ripping or tearing pain through to the back and has symmetric pulses on exam, no other acute neuro findings so I doubt aortic dissection. Risk of radiation and contrast exposure would outweigh the benefit of CT angiogram. We considered PE for this patient. Overall would be low risk. He is low risk by years criteria and D-dimer is less than 1000, therefore CT PA not indicated. No wheezing or bronchospasm to suggest COPD/asthma. No signs of chest wall cellulitis, shingles, injury. Consider possible anxiety is a trigger for pain. With reasonable clinical confidence, I think the patient is safe for outpatient follow up. Discussed return precautions. Questions answered. Patient voices comfort with the plan. Lab Data Labs: Lab Results 01/18/24 01/18/24 Range/Units 21:20 23:50 WBC 6.21 (4.50-11.00) K/uL RBC 5.09 (4.30-5.90) m/uL Hgb 14.2 (13.5-17.5) gm/dL Hct 42.1 (37.0-53.0) % MCV 83 (80-100) fL MCH 28 (26-34) pg MCHC 34 (32-36) gm/dL RDW Coeff of Adama 13.2 (11.5-15.5) % Plt Count 201 (140-440) K/uL Neut % (Auto) 69.5 (42.0-72.0) % Lymph % (Auto) 19.8 L (20-44) % Dubois % (Auto) 7.9 (0.0-11.0) % Eos % (Auto) 1.9 (0.0-7.0) % Baso % (Auto) 0.3 (0.0-3.0) % Neut # (Auto) 4.31 (1.7-7.0) K/uL Lymph # (Auto) 1.20 (0.90-2.90) K/uL Dubois # (Auto) 0.50 (0.00-0.90) K/UL Eos # (Auto) 0.12 (0.00-0.50) K/uL Baso # (Auto) 0.02 (0.00-0.30) K/uL Abs Immat Gran (auto) 0.04 (0.00-0.30) K/uL Imm/Tot Granulo (auto) 0.6 % D-Dimer Quant (PE/DVT) 0.54 H (0.00-0.50) ug/ml Sodium 135 (135-149) mmol/L Potassium 3.9 (3.6-5.1) mmol/L Chloride 99 (96-114) mmol/L Carbon Dioxide 27 (20-32) mmol/L Anion Gap 9 (7-15) mEq/L BUN 17 (7-30) mg/dL Creatinine 0.7 (0.5-1.5) mg/dL Estimated Creat Clear 73.65 Estimated GFR 102 ml/min Glucose 207 H (60-115) mg/dL Calcium 9.0 (8.4-10.6) mg/dL Magnesium 2.0 (1.5-2.6) mg/dL POC Troponin I 0.00 L 0.00 L (0.01-0.04) ng/ml ECG Data Attestation: I personally reviewed and interpreted this ECG as follows: Interpretation: Normal sinus rhythm Rate: 83 OR: 142 QRS axis: Left axis deviation. ST segment/T wave: No ST segment elevation or depression. T-wave inversion AVR, V1. QTc: 413 Unchanged compared to 01/01/2024 Discharge Plan Discharge Clinical Impression: Chest pain Instructions: Chest Pain (DC) Additional Instructions: As we discussed, so far your workup done here in the ER looks reassuring. No signs of a heart attack or other serious cause for her chest pain. However I want you to monitor your symptoms very carefully and if you are having worsening chest pain, more frequent episodes of pain, changing location of your pain, trouble breathing, nausea or vomiting, fever, or other problems, please come back to the ER right away. Even if you continue to get better, please follow-up with your regular doctor or your airport ramp attendant within 3-5 days for a recheck. Ask your doctors to arrange a stress test for your heart. Prescriptions: No Action atorvastatin 40 mg tablet 40 mg PO QPM glipizide 10 mg tablet extended release 24hr 10 mg PO DAILY metformin 500 mg tablet extended release 24 hr 1,000 mg PO BID escitalopram oxalate 10 mg tablet 10 mg PO DAILY ipratropium-albuterol 0.5 mg-3 mg(2.5 mg base)/3 mL solution for nebulization 3 ml inhalation Q6-8H PRNQty: 30 0RF albuterol sulfate 90 mcg/actuation HFA aerosol inhaler 2 puff inhalation QID PRN (Reason: shortness of breath or wheezing) Qty: 8.5 1RF ondansetron HCl 4 mg tablet 4 mg PO Q8H PRN Follow Up/Referrals: Provider,Not a Local [Non-Staff] - Stand Alone Forms: [employer] Call Info Instructions
[2024-01-18 21:39] LABS: Basophils Absolute Auto 0.02 K/uL (0.00-0.30); Basophils Percent Auto 0.3 % (0.0-3.0); Eosinophils Absolute Auto 0.12 K/uL (0.00-0.50); Eosinophils Percent Auto 1.9 % (0.0-7.0); Hematocrit 42.1 % (37.0-53.0); Hemoglobin* 14.2 gm/dL (13.5-17.5); Immature Granulocytes Abs Auto 0.04 K/uL (0.00-0.30); Immature Granulocytes Pct Auto 0.6 %; Lymphocytes Percent Auto 19.8 % (20-44); Mean Corpuscular HGB Conc 34 gm/dL (32-36); Mean Corpuscular Hemoglobin 28 pg (26-34); Mean Corpuscular Volume 83 fL (80-100); Monocytes Percent Auto 7.9 % (0.0-11.0); Neutrophils Absolute Auto 4.31 K/uL (1.7-7.0); Neutrophils Percent Auto 69.5 % (42.0-72.0); Platelet Count* 201 K/uL (140-440); RDW Coefficient of Variation % 13.2 % (11.5-15.5); Red Blood Count 5.09 m/uL (4.30-5.90); White Blood Count* 6.21 K/uL (4.50-11.00)
[2024-01-18 21:42] LABS: Chloride* 99 mmol/L (96-114)
[2024-01-18 21:43] LABS: Potassium* 3.9 mmol/L (3.6-5.1); Sodium* 135 mmol/L (135-149)
[2024-01-18 21:45] LABS: Creatinine* 0.7 mg/dL (0.5-1.5); Est. Creatinine Clearance* 73.65; Estimated Glomerular Filt Rate 102 ml/min
[2024-01-18 21:46] LABS: Anion Gap 9 mEq/L (7-15); Blood Urea Nitrogen* 17 mg/dL (7-30); Carbon Dioxide* 27 mmol/L (20-32); Glucose* 207 mg/dL (60-115)
[2024-01-18 21:48] LABS: Slide Review Reflex No
[2024-01-18 21:50] LABS: D Dimer Quantitative* 0.54 ug/ml (0.00-0.50)
--- NOTE | 2024-01-18 21:52 | CRLHL7_ITS ---
For Patients: As a result of the Century Cures Act, medical imaging exams and procedure reports are released immediately into your electronic medical record. You may view this report before your referring provider. If you have questions, please contact your health care provider. INDICATION: Dyspnea. TECHNIQUE: Chest radiographs, 2 views. COMPARISON: Chest radiograph 01/01/2024. FINDINGS: Cardiovascular/Mediastinum: Normal heart size. Unremarkable. Lungs: No focal consolidation. Subsegmental atelectasis. Airways: Trachea remains midline. Pleura: No pleural effusions or pneumothorax. Bones: No acute osseous abnormalities. Upper abdomen: Unremarkable. IMPRESSION: No acute cardiopulmonary process. Dictated by Brad Richard MD @ 01/18/2024 10:21:26 PM (Electronically Signed)
[2024-01-18] MEDS: ASPIRIN 81 MG TAB.CHEW 324 MG PO (21:56)
[2024-01-18 21:59] VITALS: O2SAT 96
[2024-01-18 23:02] VITALS: BP 131/89; PULSE 78; RESP 20; O2SAT 92
[2024-01-18 23:20] VITALS: BP 128/84; PULSE 78; RESP 20; TEMP 37.1; O2SAT 92
[2024-01-19 00:28] VITALS: BP 129/79; PULSE 74; RESP 20; TEMP 37.1; O2SAT 92
[2024-01-19 00:29] VITALS: BP 129/79; PULSE 74; RESP 20; TEMP 37.1
== END 2024-01-19 00:47 | disposition home or self-care (01) ==
PROVIDERS: Emergency Provider Emergency Medicine
DX: R07.9 Chest pain, unspecified (principal)
CPT/HCPCS: 36415; 71046; 80048; 83735; 84484; 85025; 85379; 93005; 94761; 99283; 99284; 99285; A9270

== ENCOUNTER 2024-01-31 19:04 | Emergency (ER) | payer MEDICARE, SELFPAY ==
[2024-01-31 19:13] VITALS: BP 121/80; PULSE 88; RESP 22; TEMP 36.6; O2SAT 96; BMI 41.6
--- NOTE | 2024-01-31 19:51 | CRLHL7_ITS ---
For Patients: As a result of the Century Cures Act, medical imaging exams and procedure reports are released immediately into your electronic medical record. You may view this report before your referring provider. If you have questions, please contact your health care provider. INDICATION: Right arm numbness. TECHNIQUE: CTA head and neck with 95 cc Isovue 370 intravenous contrast administered. Multiplanar reformats and MIP reconstructions are included. COMPARISON: None. FINDINGS: CTA head: The anterior cerebral arteries are patent.The middle cerebral arteries are patent.The posterior cerebral arteries are patent.The intracranial internal carotid arteries are patent.The intradural vertebral arteries and basilar arteries are patent.No aneurysm or vascular malformation. CTA neck: The aortic arch and great vessel origins are patent.The proximal subclavian arteries are patent.The common carotid arteries are patent and demonstrate a medial retropharyngeal course.The internal carotid arteries are patent.The cervical vertebral arteries are patent.No evidence of cervical arterial dissection. Cervical soft tissues: No significant pathology. Osseous structures: Scattered spondylosis without high-grade bony spinal canal/neural foraminal stenosis. Lung apices: No suspicious lesions. IMPRESSION: 1. No emergent large vessel occlusion or high-grade intracranial arterial stenosis. No other intracranial arterial vascular abnormalities. 2. No high-grade cervical arterial stenosis. No evidence of cervical arterial dissection. Please note that all CT scans at this facility use dose modulation, iterative reconstruction, and/or weight-based dosing when appropriate to reduce radiation dose to as low as reasonably achievable. Dictated by Kurt Casiano MD @ 01/31/2024 8:38:39 PM (Electronically Signed)
--- NOTE | 2024-01-31 19:51 | CRLHL7_ITS ---
For Patients: As a result of the Century Cures Act, medical imaging exams and procedure reports are released immediately into your electronic medical record. You may view this report before your referring provider. If you have questions, please contact your health care provider. INDICATION: Right arm numbness. TECHNIQUE: CT of the head without contrast. Coronal and sagittal reformats are included. COMPARISON: None. FINDINGS: No CT evidence of acute cortical infarct. No loss of freeman white matter differentiation. No hyperdense vessels to suggest intracranial thrombus. No acute intracranial hemorrhage. No mass effect or midline shift. No hydrocephalus or extra-axial collections. Small calcification within the left frontal centrum semiovale. Technically indeterminate but most usually secondary to remote infectious/inflammatory insult. No acute osseous abnormalities. Mastoid air cells and paranasal sinuses are clear. Normal soft tissues. IMPRESSION: IMPRESSION:1. No CT evidence of acute cortical infarct. No acute intracranial hemorrhage. No other acute intracranial findings. Please note that all CT scans at this facility use dose modulation, iterative reconstruction, and/or weight-based dosing when appropriate to reduce radiation dose to as low as reasonably achievable. Dictated by Kurt Casiano MD @ 01/31/2024 8:42:29 PM (Electronically Signed)
--- NOTE | 2024-01-31 19:51 | CRLHL7_ITS ---
For Patients: As a result of the Cures Act, medical imaging exams and procedure reports are released immediately into your electronic medical record. You may view this report before your referring provider. If you have questions, please contact your health care provider. Dictation for this exam included within the CTA head report from the same date. Please note that all CT scans at this facility use dose modulation, iterative reconstruction, and/or weight-based dosing when appropriate to reduce radiation dose to as low as reasonably achievable. Dictated by Kurt Casiano MD @ 01/31/2024 8:39:36 PM (Electronically Signed)
--- NOTE | 2024-01-31 19:54 | CRLHL7_ITS ---
For Patients: As a result of the Century Cures Act, medical imaging exams and procedure reports are released immediately into your electronic medical record. You may view this report before your referring provider. If you have questions, please contact your health care provider. INDICATION: Wheezing. TECHNIQUE: Chest 2 views. COMPARISON: January 18, 2024. FINDINGS: Cardiovascular and mediastinum: Heart size and vasculature are normal in caliber and appearance. Lungs and pleural spaces: Lungs are clear. No sign of infiltrate or mass. No sign of pleural effusion. No pneumothorax. Bones and soft tissues: No significant findings. IMPRESSION: No acute or significant findings. Dictated by John Edwards MD @ 01/31/2024 8:25:54 PM (Electronically Signed)
--- NOTE | 2024-01-31 19:58 | ED.GENADULT ---
HPI - General Adult General Date Seen: 01/31/24 Chief complaint: Shortness of Breath/Dyspnea Stated complaint: numb arm, feeling unwell Time Seen by Provider: 01/31/24 19:08 Source: patient, family, RN notes reviewed and old records reviewed Mode of arrival: ambulatory Limitations: no limitations History of Present Illness HPI narrative: Patient is a 63-year-old male who gives little bit of a convoluted history. He says when he was at work this morning at around 9:30 a.m. he was just feeling really on well. He says he felt nauseated, did not have an appetite, and just generally felt off. He had a doctor's appointment today with someone up in [place] who follows him for his asthma. He says that his nausea feeling peaked at about noon and then throughout the afternoon he was feeling more wheezy than usual, and then he says that when he went to see his doctor for his asthma she told him she could ?hear him wheezing from across the room and that she thought he needed to go to any ER right away. He also says that yesterday evening he had some tingling in his right arm associated with pain that seemed to radiate from his wrist to shoulder and back. He did not have any true numbness or loss of function. He says his right leg felt cold at the time. He was seen here for some chest pain recently, that was on the left side of his chest, and he ruled out for PE, other pulmonary findings, or acute coronary syndrome. He was advised to follow up to discuss possible stress testing and says he is meant to do that but has not done that yet. He has not had further chest pain. He quit smoking 35 years ago. He drinks occasionally, denies other substances. Medical history reviewed. I spoke with his as well, she was in the waiting room and he had asked if I could see if she would come sit with him. She actually declined to come back, she says that she is tired of going to doctors with him, that he goes to the doctor all the time and she feels that it is a combination of anxiety about possible health problems as well as liking the attention. She says she is very frustrated because he does not actually take care of his health at home, he does not take his medications as prescribed, does not follow the diet recommended for his prediabetes, does not follow through on mental health visits etcetera. She says that he texted her earlier and said he was vomiting blood and his oxygen levels were low which is why the doctor said he needed to go to the ER. He did not mention either of these things to me. She feels strongly that he embellishes or in her words ?lies?, in order to manipulate people. Related Data Home Medications ?Medication ?Instructions ?Recorded ?Confirmed atorvastatin 40 mg tablet 40 mg PO QPM 12/11/23 01/18/24 escitalopram oxalate 10 mg tablet 10 mg PO DAILY 12/11/23 01/18/24 glipizide 10 mg tablet, extended 10 mg PO DAILY 12/11/23 01/18/24 release 24 hr metformin 500 mg tablet,extended 1,000 mg PO BID 12/11/23 01/18/24 release 24 hr ondansetron HCl 4 mg tablet 4 mg PO Q8H PRN 01/18/24 01/18/24 Previous Rx's ?Medication ?Instructions ?Recorded ipratropium 0.5 mg-albuterol 3 mg 3 ml inhalation Q6-8H PRN #30 mL 12/11/23 (2.5 mg base)/3 mL nebulization soln albuterol sulfate 90 mcg/actuation 2 puff inhalation QID PRN 01/01/24 aerosol inhaler shortness of breath or wheezing #8.5 grams Allergies Allergy/AdvReac Type Severity Reaction Status Date / Time No Known Drug Allergies Allergy Verified 01/18/24 21:28 Review of Systems Status of ROS: Reports: 10 or more systems reviewed and unremarkable except as noted in History and below [facility] Social History Smoking Status: Former smoker Do you use any of these nicotine containing products: None Second hand tobacco smoke exposure: No How often do you have a drink containing alcohol: never How often do you have six or more drinks on one occasion: Never AUDIT-C Alcohol total score: 0 Non-prescribed substance use: denies use service: No Exam Narrative: Exam Narrative: Vital signs as noted above. In general, an alert, well-appearing patient. Head: Normocephalic, atraumatic. Eyes: Pupils are equal reactive. Extraocular movements are full. Conjunctivae are normal. ENT: Mucous membranes are moist. Throat is normal. Neck: Supple without lymphadenopathy. Heart: Regular rate and rhythm. No murmur or rub. Lungs: Clear bilaterally. No increased work of breathing, crackles or wheezes. Abdomen: Soft and nontender. No organomegaly. Extremities: Well perfused. No edema. No calf tenderness. Pulses intact. Neurologic: Patient is alert and oriented to person and place. Speech is fluent. Face is symmetric. Moves all extremities equally. Cerebellar function is intact by [id number] testing. Fine motor function intact bilaterally. Affect: Normal. Skin: Warm and dry. Well perfused. Const: Vital Signs, click to edit/add: Vital Signs - 24 hr 01/31/24 19:13 Temperature 97.9 F Pulse Rate [Pulse Oximeter] 88 Respiratory Rate 22 Blood Pressure [Ri ght Upper Arm] 121/80 Pulse Oximetry 96 Oxygen Delivery Me thod Room Air Documenting provider has reviewed patient's vital signs: yes Course Course ED Course: Potential life-threatening diagnoses considered included TIA, intracranial hemorrhage, acute coronary syndrome, pulmonary embolism, asthma exacerbation, pneumonia, among others. I did do a CT of the head and CT angiogram, this is read by Radiology as linked below, no vascular abnormalities, no CT evidence of acute cortical infarct hemorrhage or other significant findings. Troponin was 0. EKG showed a sinus rhythm, no acute ST segment changes, no concerning T-waves, normal indices. Metabolic panel is normal, blood sugars 141. BNP and CBC are pending at this time. Overall, given negative workup and suggestion from his that he has frequent similar symptoms, (she notes in her text red he has complained of similar symptoms on multiple occasions recently, in addition to complaining of alternative symptoms which he did not mention in his conversation with me), I think it likely that there is an anxiety component to all of this. I recommended that he follow up with primary care as well as his mental health provider. His says he was doing better when he was seeing his therapist regularly but apparently insurance does not cover that anymore and so he no longer goes. He tells me that he is going to restart therapy. He is on a small dose of Lexapro daily, may benefit from dosage adjustment. I have discussed all this with the patient. He notes that he has been on the Lexapro for quite some time, and acknowledges that he not infrequently forgets to take it. He notices when he is taking it that he feels better. He also acknowledges fairly significant anxiety about his health. I have asked him to review all this with his primary doctor. If there is further concern for TIA, an MRI could be considered, and anxiety should be addressed as well. CBC and BNP are still pending, assuming these are normal, plan will be to discharge home with the above plan. Return as needed to the ER for severe worsening symptoms. Vital Signs Vital signs: Initial Vital Signs Temperature 97.9 F 01/31/24 19:13 Temperature Source Temporal Artery Scan 01/31/24 19:13 Pulse Rate 88 01/31/24 19:13 Respiratory Rate 22 01/31/24 19:13 Blood Pressure 121/80 01/31/24 19:13 Blood Pressure Mean 93 01/31/24 19:13 Blood Pressure Position Sitting 01/31/24 19:13 Pulse Oximetry 96 01/31/24 19:13 Oxygen Delivery Method Room Air 01/31/24 19:13 Vital Signs Temperature 97.9 F 01/31/24 19:13 Pulse Rate 88 01/31/24 19:13 Respiratory Rate 22 01/31/24 19:13 Blood Pressure 121/80 01/31/24 19:13 Pulse Oximetry 96 01/31/24 19:13 Oxygen Delivery Method Room Air 01/31/24 19:13 Temperature 98.3 F 01/31/24 21:11 Pulse Rate 74 01/31/24 21:11 Respiratory Rate 16 01/31/24 21:11 Blood Pressure 126/78 01/31/24 21:11 Pulse Oximetry 96 01/31/24 19:13 Oxygen Delivery Method Room Air 01/31/24 19:13 Medical Decision Making Lab Data Labs: Lab Results 01/31/24 01/31/24 Range/Units 20:00 20:11 WBC 6.35 (4.50-11.00) K/uL RBC 4.89 (4.30-5.90) m/uL Hgb 13.5 (13.5-17.5) gm/dL Hct 40.4 (37.0-53.0) % MCV 83 (80-100) fL MCH 28 (26-34) pg MCHC 33 (32-36) gm/dL RDW Coeff of [place] 13.3 (11.5-15.5) % Plt Count 206 (140-440) K/uL Neut % (Auto) 72.7 H (42.0-72.0) % Lymph % (Auto) 17.2 L (20-44) % [place] % (Auto) 7.4 (0.0-11.0) % Eos % (Auto) 2.4 (0.0-7.0) % Baso % (Auto) 0.3 (0.0-3.0) % Neut # (Auto) 4.60 (1.7-7.0) K/uL Lymph # (Auto) 1.10 (0.90-2.90) K/uL [place] # (Auto) 0.50 (0.00-0.90) K/UL Eos # (Auto) 0.15 (0.00-0.50) K/uL Baso # (Auto) 0.02 (0.00-0.30) K/uL Abs Immat Gran (auto) 0.00 (0.00-0.30) K/uL Imm/Tot Granulo (auto) 0.0 % Sodium 135 (135-149) mmol/L Potassium 3.8 (3.6-5.1) mmol/L Chloride 100 (96-114) mmol/L Carbon Dioxide 28 (20-32) mmol/L Anion Gap 7 (7-15) mEq/L BUN 15 (7-30) mg/dL Creatinine 0.6 (0.5-1.5) mg/dL Estimated Creat Clear 76.04 Estimated GFR 107 ml/min Glucose 141 H (60-115) mg/dL Calcium 9.0 (8.4-10.6) mg/dL NT-Pro-B Natriuret Pep < 20 pg/mL POC Troponin I 0.00 L (0.01-0.04) ng/ml Imaging Data CT scan - head: Attestation: I have reviewed the pertinent imaging results. Radiologist's impression: Patient: MARSHALL OLVERA Facility: [facility] [place] Site . Site : 1960 Study: CT-Head W/O-01/31/2024 8:17:19 PM Ordering Physician: Diana Dolan Final Report: INDICATION: Right arm numbness. TECHNIQUE: CT of the head without contrast. Coronal and sagittal reformats are included. COMPARISON: None. FINDINGS: No CT evidence of acute cortical infarct. No loss of freeman white matter differentiation. No hyperdense vessels to suggest intracranial thrombus. No acute intracranial hemorrhage. No mass effect or midline shift. No hydrocephalus or extra-axial collections. Small calcification within the left frontal centrum semiovale. Technically indeterminate but most usually secondary to remote infectious/inflammatory insult. No acute osseous abnormalities. Mastoid air cells and paranasal sinuses are clear. Normal soft tissues. IMPRESSION: IMPRESSION:1. No CT evidence of acute cortical infarct. No acute intracranial hemorrhage. No other acute intracranial findings. Please note that all CT scans at this facility use dose modulation, iterative reconstruction, and/or weight-based dosing when appropriate to reduce radiation dose to as low as reasonably achievable. Dictated by Kurt Casiano MD @ 01/31/2024 8:42:[address] angiogram head and neck: Attestation: I have reviewed the pertinent imaging results. Radiologist's impression: Patient: MARSHALL OLVERA Facility: [facility] [place] Site . Site : 1960 Study: CT-Head Angio W/95CC [id number] ALL IMAGES ON ANGIO H-01/31/2024 8:19:30 PM Ordering Physician: Diana Dolan Final Report: INDICATION: Right arm numbness. TECHNIQUE: CTA head and neck with 95 cc Isovue 370 intravenous contrast administered. Multiplanar reformats and MIP reconstructions are included. COMPARISON: None. FINDINGS: CTA head: The anterior cerebral arteries are patent.The middle cerebral arteries are patent.The posterior cerebral arteries are patent.The intracranial internal carotid arteries are patent.The intradural vertebral arteries and basilar arteries are patent.No aneurysm or vascular malformation. CTA neck: The aortic arch and great vessel origins are patent.The proximal subclavian arteries are patent.The common carotid arteries are patent and demonstrate a medial retropharyngeal course.The internal carotid arteries are patent.The cervical vertebral arteries are patent.No evidence of cervical arterial dissection. Cervical soft tissues: No significant pathology. Osseous structures: Scattered spondylosis without high-grade bony spinal canal/neural foraminal stenosis. Lung apices: No suspicious lesions. IMPRESSION: 1. No emergent large vessel occlusion or high-grade intracranial arterial stenosis. No other intracranial arterial vascular abnormalities. 2. No high-grade cervical arterial stenosis. No evidence of cervical arterial dissection. Please note that all CT scans at this facility use dose modulation, iterative reconstruction, and/or weight-based dosing when appropriate to reduce radiation dose to as low as reasonably achievable. Dictated by Kurt Casiano MD @ 01/31/2024 8:38:39 PM Discharge Plan Discharge Clinical Impression: Paresthesia and pain of right extremity, Anxiety about health Patient Disposition: Home, Self-Care Condition: Stable Instructions: Paresthesia (ED) Additional Instructions: I would recommend follow-up with your primary doctor for further discussion of these symptoms. If there is further concern for possible stroke, MRI could be done. I would also recommend that you discuss anxiety symptoms with your regular doctor, according to our records you are on 10 mg of Lexapro a day which is a very small dose. You may benefit from adjustment of this or consideration of an alternate medication. For severe or worsening symptoms, return any time to the emergency department. Prescriptions: No Action atorvastatin 40 mg tablet 40 mg PO QPM glipizide 10 mg tablet extended release 24hr 10 mg PO DAILY metformin 500 mg tablet extended release 24 hr 1,000 mg PO BID escitalopram oxalate 10 mg tablet 10 mg PO DAILY ipratropium-albuterol 0.5 mg-3 mg(2.5 mg base)/3 mL solution for nebulization 3 ml inhalation Q6-8H PRNQty: 30 0RF albuterol sulfate 90 mcg/actuation HFA aerosol inhaler 2 puff inhalation QID PRN (Reason: shortness of breath or wheezing) Qty: 8.5 1RF ondansetron HCl 4 mg tablet 4 mg PO Q8H PRN Follow Up/Referrals: Va Glez [Primary Care Provider] - Stand Alone Forms: [employer] Info Instructions
--- OUTSIDE RECORDS SUMMARY | 2024-01-31 20:00 | XMS_ITS | Clinical Summary ---
Author Organization [facility] Address [address] [place] [address] Care Team Providers Care Scissors Grinder Name Role Phone Va Glez MD Primary Care Provider Va Glez MD Unavailable Christy Campuzano PAUniqueC Unavailable Hans Cannon MD Unavailable Estella Hassan [facility] Unavailable Josh Cordero MD, Madhuri Unavailable [phone] John Webb MD Unavailable John Webb MD Unavailable [phone] Estella Hassan [facility] Unavailable [phone] Lindsay Carey OD Unavailable Richard Kam MD Unavailable Gaby Vila DO Unavailable Roseamrie Mcdowell RN Unavailable [phone] Mitra Kendall TRAFFIC LINE PAINTER Unavailable [phone] Lizet Mann PA-C Unavailable Ravi Brownlee MD Unavailable [phone] Nav Hughes MD Unavailable [phone] Manuel Ahn OD Unavailable Arabella Fishman MA Unavailable [phone] Thalia Charles [facility] Unavailable Unavailable Allergies Active Allergy Reactions Criticality Noted Date Comments Montelukast 06/12/2020 Pt felt anxious on the medicine. Medications * This document contains information received from the source organization and may not represent a complete record from that organization. diclofenac (VOLTAREN) 1 % topical gel Apply 2 g topically 4 times daily Active acetaminophen (TYLENOL) 500 MG tablet Take 500-1,000 mg by mouth every 6 hours as needed for mild pain. Active Semaglutide, 2 MG/DOSE, (OZEMPIC) 8 MG/3ML penIndications: Type 2 diabetes mellitus without complication, without long-term current use of insulin (H) Inject 2 mg subcutaneously every 7 days 9 mL 3 Active Continuous Glucose Sensor (FREESTYLE ANDRIA 2 SENSOR) MISCIndications :Type 2 diabetes mellitus with hyperglycemia, without long-term current use of insulin (H) INJECT 1 EACH SUBCUTANEOUSLY EVERY 14 DAYS USE 1 SENSOR EVERY 14 DAYS. USE TO READ BLOOD SUGARS PER BOILERMAKER MECHANIC'S INSTRUCTIONS. 2 each 5 Active metFORMIN (GLUCOPHAGE XR) 500 MG 24 hr tabletIndicatio ns:Type 2 diabetes mellitus without complication, without long-term current use of insulin (H) TAKE 4 TABLETS BY MOUTH DAILY WITH DINNER 360 tablet 1 Active sucralfate (CARAFATE) 1 GM tablet Take 1 tablet (1 g) by mouth 4 times daily. 30 tablet 024 Active omeprazole (PRILOSEC) [address] capsuleIndicati ons:Acute gastritis without hemorrhage, unspecified gastritis type TAKE 1 CAPSULE BY MOUTH EVERY DAY 90 capsule 1 024 Active ipratropium - albuterol 0.5 mg/2.5 mg/3 mL (DUONEB) 0.5-2.5 (3) MG/3ML neb solutionIndicat ions:SOB (shortness of breath),Moderat e persistent asthma without complication TAKE 1 VIAL (3 MLS) BY NEBULIZATION EVERY 6 HOURS NEEDED FOR SHORTNESS OF BREATH / DYSPNEA /WHEEZING 360 mL 3 024 Active budesonide (PULMICORT) 0.5 MG/2ML neb solutionIndicat ions:Moderate persistent asthma without complication Take 2 mLs (0.5 mg) by nebulization 2 times daily. 120 mL 11 024 Active formoterol (PERFOROMIST) 20 MCG/2ML neb solutionIndicat ions:Moderate persistent asthma without complication Take 2 mLs (20 mcg) by nebulization every 12 hours. 120 mL 11 024 Active fluticasone (FLONASE) 50 MCG/ACT nasal sprayIndication s:Moderate persistent asthma without complication [place] 1 spray into both nostrils daily. 11.1 mL 024 Active atorvastatin (LIPITOR) 40 MG tabletIndicatio ns:Type 2 diabetes mellitus without complication, without long-term current use of insulin (H) Take 1 tablet (40 mg) by mouth every evening. 90 tablet 3 024 Active escitalopram (LEXAPRO) 10 MG tabletIndicatio ns:Major depressive disorder, recurrent episode, moderate (H) Take 1 tablet (10 mg) by mouth daily. 90 tablet 3 024 Active glipiZIDE (GLUCOTROL XL) 10 MG 24 hr tabletIndicatio ns:Type 2 diabetes mellitus without complication, without long-term current use of insulin (H) Take 2 tablets (20 mg) by mouth daily. 180 tablet 1 024 Active ondansetron (ZOFRAN) 4 MG tabletIndicatio ns:Nausea Take 1 tablet (4 mg) by mouth every 8 hours as needed for nausea. 30 tablet 024 Active amoxicillin-cla vulanate (AUGMENTIN) 875-125 MG tabletIndicatio ns:Subacute cough TAKE 1 TABLET BY MOUTH TWICE A DAY FOR 5 DAYS 10 tablet 024 Active albuterol (PROAIR HFA/PROVENTIL HFA/VENTOLIN HFA) 108 (90 Base) MCG/ACT inhalerIndicati ons:Moderate persistent asthma without complication INHALE 2 PUFFS INTO THE LUNG 4 TIMES A DAY NEEDED 16 g 3 024 Active zolpidem (AMBIEN) 10 MG tabletIndicatio ns:Insomnia, unspecified type Take tablet by mouth 15 minutes prior to sleep, for Sleep Study 1 tablet Active glipiZIDE (GLUCOTROL XL) 10 MG 24 hr tabletIndicatio ns:Type 2 diabetes mellitus without complication, without long-term current use of insulin (H) Take 1 tablet (10 mg) by mouth daily 90 tablet 1 024 2023 Discontinued(R eorder (No AVS)) ondansetron (ZOFRAN) 4 MG tabletIndicatio ns:Nausea Take 1 tablet (4 mg) by mouth every 8 hours as needed for nausea. 30 tablet 024 2023 Discontinued(R eorder (No AVS)) albuterol (PROAIR HFA/PROVENTIL HFA/VENTOLIN HFA) 108 (90 Base) MCG/ACT inhalerIndicati ons:SOB (shortness of breath),Moderat e persistent asthma without complication Inhale 2 puffs into the lungs every 6 hours as needed for shortness of breath, wheezing or cough. 18 g 1 024 2023 Discontinued(R eorder (No AVS)) guaiFENesin (MUCINEX) 600 MG 12 hr tabletIndicatio ns:Subacute cough Take 2 tablets (1,200 mg) by mouth 2 times daily for 7 days. 28 tablet 024 2023 amoxicillin-cla vulanate (AUGMENTIN) 875-125 MG tabletIndicatio ns:Subacute cough Take 1 tablet by mouth 2 times daily for 5 days. 10 tablet 024 2023 Discontinued albuterol (PROAIR HFA/PROVENTIL HFA/VENTOLIN HFA) 108 (90 Base) MCG/ACT inhalerIndicati ons:Moderate persistent asthma without complication Inhale 2 puffs into the lungs every 6 hours as needed for shortness of breath, wheezing or cough. 18 g 1 024 2023 Discontinued Hospital, Clinic, or Other Facility Administered Medication Ordered Dose Route Frequency Start Date End Date Status lidocaine 1 % injection 1 mLIndications:Primary osteoarthritis of right wrist 1 mL 10/04/2023 Active lidocaine 1 % injection 1 mLIndications:Primary osteoarthritis of right wrist 1 mL 10/04/2023 Active dexAMETHasone (DECADRON) injection 1 mLIndications:Primary osteoarthritis of right wrist 1 mL 10/04/2023 Active triamcinolone (KENALOG-40) injection 40 mgIndications:Primary osteoarthritis of right wrist 40 mg 10/04/2023 Active Active Problems Problem Noted Date Diagnosed Date Esophageal reflux 12/23/2023 Assessment & Plan (12/23/2023 1:24 PM CDT): Continue on omeprazole 40 m g daily. LUZ (generalized anxiety disorder) 06/13/2023 Assessment & Plan (12/23/2023 1:22 PM CDT): Per patient, pt anxiety has been worse ernesto is still struggling with a relationship with his . Continue on Escitalopram 10 mg Assessment & Plan (06/13/2023 11:06 AM CDT): Per patient, pt anxiety has been better, he is still struggling with a relationship with his . Radicular pain in right arm 04/21/2023 Severe persistent asthma, uncomplicated 03/18/19 Assessment & Plan (06/13/2023 10:58 AM CDT): Pt was seen by Pulmonary recently and was add on Umeclidinium, along with advair twice daily and albuterol. His symptoms are combination of asthma, being over weight, and anxiety. Acute on chronic right wrist pain 10/29/2021 Primary osteoarthritis of right wrist 10/29/2021 Bilateral low back pain without sciatica 021 Mediastinal cyst 06/23/2020 Overview (06/23/2020): Added automatically from request for surgery [id number] Thoracic aortic aneurysm wit hout rupture (H) - incidental finding CT scan 04/21/2020 - PCP to follow up 04/21/[address] of the chest - r ight paratracheal, elliptical cystic mass measuring approximately 3.7 x 2.4 x 6.1 cm 04/21/2020 Mass in chest - right paratr acheal, elliptical cystic mass measuring approximately 3.7 x 2.4 x 6.1 cm 04/21/2020 Type 2 diabetes mellitus wit h hyperglycemia, without long-term current use of insulin 09/13/2019 Assessment & Plan (12/23/2023 1:16 PM CDT): Diabetes is controlled, he did not start on semaglutide, only taking metformin and glipizide. Continue current treatment regimen. Pt it planning to start on semaglutide which I think it will help him with weight loss. Diabetes will be reassessed in 6 months. Assessment & Plan (06/13/2023 11:00 AM CDT): Diabetes was not controlled, will repeat A1c. Continue on metformin 2000 mg daily, glipoidize 5 mg and Semaglutide 0.25 Diabetes will be reassessed in 3 months. Assessment & Plan (01/30/2022 9:05 AM HOTSHOT SUPERINTENDENT): Hemoglobin A1C Date Value Ref Range Status 10/02/2021 7.7 (H) 0.0 - 5.6 % Final Comment: Normal <5.7% Prediabetes 5.7-6.4% Diabetes 6.5% or higher Note: Adopted from ADA consensus guidelines. 07/16/2020 6.6 (H) 0 - 5.6 % Final Comment: Normal <5.7% Prediabetes 5.7-6.4% Diabetes 6.5% or higher - adopted from ADA consensus guidelines. He has no recent eye exam. Facilitate Major depressive disorder, recurrent episode, mo derate 03/26/2016 Morbid obesity due to excess calories 03/26/2016 Assessment & Plan (01/30/2022 9:06 AM HOTSHOT SUPERINTENDENT): He would really like to get some of this weight off. Discussed options difficulties of weight loss in the geriatric population which he is approaching. Refer Assessment & Plan (02/12/2019 10:33 AM HOTSHOT SUPERINTENDENT): Weight gain of 20 lbs since last office visit Discussed weight programs, weight watchers Arthritis of knee 11/03/2015 Assessment & Plan (06/13/2023 11:02 AM CDT): Scheduled to see Orthopedic with bc, and he had steroid injection in the right knee. Pt to follow up with orthopedic. Moderate persistent asthma without complication 01/27/2015 Assessment & Plan (12/23/2023 1:15 PM CDT): Still not controlled, pt went to youth development specialist who switched to Formoterol, and BUdesonide nebs daily. Assessment & Plan (01/30/2022 9:07 AM HOTSHOT SUPERINTENDENT): He has influenza and asthma. His breathing is doing quite well prednisone pulse is over chest is clear. Discussed. He has a nonproductive cough. Symptomatic therapies Assessment & Plan (01/08/2019 10:12 AM CDT): Feels emotions make asthma worsen Misses advair doses occasionally - discussed once a day medication change Breo Resolved Problems Problem Noted Date Diagnosed Date Resolved Date Abnormal blood sugar 06/13/2023 024 Influenza A 01/30/2022 06/13/2023 Assessment & Plan (01/30/2022 9:07 AM HOTSHOT SUPERINTENDENT): Discussed contagion, positive strokes for immunizations Screen for colon cancer 01/28/202203/2023 Assessment & Plan (01/30/2022 9:05 AM HOTSHOT SUPERINTENDENT): Introduced, discussed options Wrist stiffness, right 10/29/202106/12 Pain of right lower leg 01/08/2019 07/0 04/2019 Assessment & Plan (01/08/2019 10:17 AM CDT): ER visit 12/31 right leg cold and painful/numbness tingling MRI negative for acute findings Continues with pain from knee down feeling cold Foot exam completed, decrease sensation right LUZ (generalized anxiety disorder) 01/17/2017 12/23/2023 Glucose intolerance (impaire d glucose tolerance) 04/03/2016 05/29/2020 Assessment & Plan (01/08/2019 10:20 AM CDT): Weight loss 4 lbs in one month Recheck A1C today Neuropathy right lower leg Ankle pain, right 03/28/2015 06/13/2015 Obesity 03/15/2014 03/26/2016 Moderate major depression 12/28/2013 Asthma with exacerbation 12/19/201310/2013 Moderate persistent asthma 12/19/2013 1 03/29/2014 Encounters Date Type Department Care Team Description 01/31/2024 4:00 PM HOTSHOT SUPERINTENDENT Office Visit [facility] [address] [place] [place] [phone] Estella Morales MD Moderate persistent asthma with exacerbation (Primary Dx); Wheezing; Chest pain on breathing 01/31/2024 MyC Medical Advice [facility] [address] [place] [address] Nasreen Martell 01/30/2024 10:30 AM HOTSHOT SUPERINTENDENT Office Visit [facility] [address] [place] [phone] Kd Nolasco MD Wilson, Thomas G, NESSA PAPER HANDLER Suspected sleep apnea (Primary Dx); Snoring; Excessive daytime sleepiness; Insomnia, unspecified type; Moderate persistent asthma without complication; Morbid obesity with BMI of 40.0-44.9, adult (H) 01/30/2024 MyC Medical Advice [facility] [address] [facility] [address] [place] [phone] Thalia Charles RPH 01/30/2024 Travel 01/26/2024 7:00 AM HOTSHOT SUPERINTENDENT Office Visit [address] [address] Estella Hassan, [facility] Type 2 diabetes mellitus without complication, without long-term current use of insulin (H) (Primary Dx); Morbid obesity due to excess calories (H); Major depressive disorder, recurrent episode, moderate (H); LUZ (generalized anxiety disorder) 01/26/2024 MyC Medical Advice [address] [address] Thalia Charles RPH 01/26/2024 Travel 01/24/2024 Telephone [facility] [address] [place] [phone] Va Glez MD 01/22/2024 [address] [place] [address] Estella Morales MD Medication Refill 01/19/[address] [phone] Estella Morales MD Medication Refill 01/17/[address] [phone] Kerry Bernal, INOCENCIO Patient Request 01/16/2024 MyC Medical Advice [address] [phone] Dino Ponce RN 01/16/[address] [phone] Lizet Mann PA-C Results (6MWT) 01/13/2024 2:00 PM CDT Office Visit [address] [phone] Moderate persistent asthma without complication 01/13/2024 MyC Medical Advice [facility] [address] [place] [phone] Claribel Mauricio, INOCENCIO 01/12/2024 6:30 PM CDT Ancillary Procedure [facility] [address] 1[address] [place] [address] Marian Agustin APRN JOURNEYMAN PRESS OPERATOR Mediastinal cyst 01/12/2024 Travel 01/11/[address] [place] [address] [place] [phone] Kd Nolasco MD Medication Refill 01/09/[address] [place] [phone] Estella Morales MD 01/09/2024 Telephone [facility] [address] [place] [phone] Kd Nolasco MD Medication Request 01/09/[address] [phone] Kerry Bernal, INOCENCIO Patient Request 01/05/2024 2:00 PM CDT Allied Health/Nurse Visit [address] [phone] Clinic Care Coordination - Follow-up (Demetria... 01/05/2024 7:30 AM CDT Office Visit [address] [phone] Estella Hassan, [facility] Type 2 diabetes mellitus without complication, without long-term current use of insulin (H) (Primary Dx); LUZ (generalized anxiety disorder); Morbid obesity due to excess calories (H); Major depressive disorder, recurrent episode, moderate (H) 01/05/[address] [address] Kerry Bernal, INOCENCIO Patient Request (Glucose/CGM ) 01/05/2024 Travel 01/04/2024 MyC Medical Advice [facility] [address] [facility] [address] [place] [phone] [facility] 01/04/2024 MyC Medical Advice [facility] [address] [place] [address] Claribel Mauricio, INOCENCIO 01/03/[address] [phone] Kerry Bernal RN Patient Request 01/02/2024 3:00 PM CDT Office Visit [place] [address] [place] [phone] Kd Nolasco MD Somnolence (Primary Dx); Chest discomfort; Subacute cough; Moderate persistent asthma without complication 01/02/[address] [address] Estella Morales MD Medication Refill 01/02/[address] [phone] Va Glez MD Same Day Appointment (Pt would like to check and see if anyone can squeeze him in for a same day appt sometime today 01/01) 01/02/2024 Travel 01/01/[address] [phone] Estella Morales MD Medication Refill (Medication refill / albuterol (PROAIR HFA/PROVENTIL HFA/VENTOLIN HFA) 108 (90 Base) MCG/ACT inhaler ) 12/30/[address] [phone] Estella Morales MD 12/30/2023 Orders Only [facility] [address] [address] Claribel Mauricio RN Mediastinal cyst (Primary Dx) 12/29/2023 MyC Medical Advice [address] [address] Elaina Moreno MD 12/29/2023 MyC Medical Advice [address] [phone] Estella Hassan, [facility] 12/29/2023 MyC Medical Advice [facility] [address] [facility] [address] [place] [phone] Alicja Roldan OT 12/27/2023 5:30 PM CDT Office Visit [facility] [address] [place] [phone] Debbie Palacios PA-C Pharyngitis, unspecified etiology (Primary Dx) 12/27/2023 Travel 12/26/[address] [phone] Kerry Bernal RN Patient Request 12/24/2023 Telephone [facility] [phone] [place] [phone] Va Glez MD Results 12/23/2023 1:00 PM CDT Office Visit [address] [phone] Va Glez MD Encounter for Medicare annual wellness exam (Primary Dx); Type 2 diabetes mellitus without complication, without long-term current use of insulin (H); Moderate persistent asthma without complication; Type 2 diabetes mellitus with hyperglycemia, without long-term current use of insulin (H); LUZ (generalized anxiety disorder); Major depressive disorder, recurrent episode, moderate (H); Gastroesophageal reflux disease without esophagitis; Screening for prostate cancer 12/23/2023 Travel 12/21/2023 2:00 PM CDT Office Visit [facility] [address] [place] [address] [address] [place] [phone] Lizet Mann PA-C Moderate persistent asthma without complication (Primary Dx) 12/21/2023 Travel 12/18/2023 8:58 AM CDT - 12/18/2023 11:05 AM CDT Emergency [facility] [address] [place] [phone] Aditi Santos MD Mild intermittent asthma with acute exacerbation Discharge Disposition: Home or Self Care 12/16/[address] [facility] [address] [address] Ravi Brownlee MD Appointment 12/15/2023 1:40 PM CDT Office Visit [address] [phone] Estella Morales MD Diarrhea, unspecified type (Primary Dx); SOB (shortness of breath); Moderate persistent asthma without complication; Nausea 12/15/[address] [phone] Kerry Bernal RN Patient Request 12/15/2023 Travel 12/09/[address] [phone] Va Glez MD Med Change Request 12/06/2023 Telephone [facility] [address] [place] [phone] Aditi Morales Colonoscopy (Screening) 12/02/[address] [facility] [address] [phone] Ravi Brownlee MD Call Back 12/02/[address] [phone] Va Glez MD Prior Auth - Medication (ondansetron (ZOFRAN ODT) 4 MG ODT tab -EPA DENIED) 12/02/[address] [phone] Kerry Bernal RN Patient Request 11/30/2023 Telephone [facility] [address] [address] Ravi Brownlee MD Refill Request (1. albuterol (PROAIR HFA/PROVENTIL HFA/VENTOLIN HFA) 108 (90 Base) MCG/ACT inhaler /2. albuterol solution /) 11/30/2023 MyC Medical Advice [facility] [address] [place] [address] Aditi Morales 11/25/2023 2:30 PM CDT Office Visit [address] [address] Estella Hassan, [facility] Type 2 diabetes mellitus with hyperglycemia, without long-term current use of insulin (H) (Primary Dx); Moderate persistent asthma with exacerbation; Morbid obesity due to excess calories (H) 11/25/[address] [address] Kerry Bernal, INOCENCIO Patient Request (MTM ) 11/25/2023 Travel 11/24/2023 Telephone [facility] [address] [phone] Ravi Brownlee MD Medication Question (albuterol (PROAIR HFA/PROVENTIL HFA/VENTOLIN HFA) 108 (90 Base) MCG/ACT inhaler) 11/23/2023 Telephone [facility] [address] [address] Ravi Brownlee MD Call Back 11/23/[address] [phone] Kerry Bernal, INOCENCIO Patient Request 11/22/[address] [phone] Kerry Bernal, INOCENCIO Patient Request 11/20/2023 10:10 AM CDT Office Visit [place] [phone] [place] [address] Linda Hanson APRN PAPER HANDLER Nausea (Primary Dx); Diarrhea, unspecified type; Acute bilateral thoracic back pain; Type 2 diabetes mellitus with hyperglycemia, without long-term current use of insulin (H) 11/20/2023 Travel 11/18/2023 Refill [facility] [address] [phone] Ravi Brownlee MD Refill Request (ipratropium - albuterol 0.5 mg/2.5 mg/3 mL (DUONEB) 0.5-2.5 (3) MG/3ML neb solution) 11/15/[address] [phone] Kerry Bernal RN Patient Request (Coupon for ozempic ) 11/11/2023 1:30 PM CDT Office Visit [address] [phone] Va Glez MD Acute gastritis without hemorrhage, unspecified gastritis type (Primary Dx); Screen for colon cancer 11/11/[address] [facility] and [address] [phone] Ravi Brownlee MD Refill Request (ipratropium - albuterol 0.5 mg/2.5 mg/3 mL (DUONEB) 0.5-2.5 (3) MG/3ML neb solution /) 11/11/2023 Travel 11/08/2023 7:25 PM CDT - 11/08/2023 10:50 PM CDT Emergency [facility] [address] [place] [phone] Garret Drake MD Upper abdominal pain Discharge Disposition: Home or Self Care 11/08/2023 Travel 11/08/[address] [phone] Va Glez MD Medication Problem 11/08/[address] [phone] Kerry Bernal, INOCENCIO Refill Request 11/08/[address] [phone] Whitney Hood PA-C Medication Refill 11/07/2023 7:00 PM CDT Office Visit [facility] [address] [place] [phone] Thu Leyva PA-C RUQ abdominal pain (Primary Dx) 11/06/2023 8:44 PM CDT - 11/07/2023 12:04 AM CDT Emergency [facility] [address] [place] [phone] Vamshi Tobin DO Decreased appetite (Primary Dx); Shortness of breath; Nausea Discharge Disposition: Left Against Medical Advice 11/06/2023 Travel 11/06/[address] [phone] Va Glez MD Medication Refill from Last 3 Months Immunizations Name Administration Dates Next Due COVID-19 12+ (Pfizer) 12/23/2023,06/13/2023 COVID-19 Bivalent 12+ (Pfizer) 12/25/2021 COVID-19 MONOVALENT 12+ (Pfizer) 02/11/2021,06/12,06/02/2020 COVID-19 Monovalent 12+ (Pfizer 2021) 12/25/2021 ,07/22/2021 Influenza (High Dose) HOWARD Nguyen (Fluzone) 11/06/2023 Influenza (IIV3) PF 12/03/2017,01/08/2010 Influenza Vaccine 18-64 (Flublok) 11/29/2019, Influenza Vaccine >6 months,quad, PF ,11/07/2021,11/06/2021,2020,12/03/2017,12/24/2016,12/30/2014 Pneumococcal 20 valent Conju gate (Prevnar 20) 05/01/2023 Pneumococcal 23 valent 01/14/2017 RSV Vaccine (Arexvy) 01/25/2023 TD,PF 7+ (Tenivac) 11/23/1999 TDAP Vaccine (Adacel) 01/02/2018 Td (Adult), Adsorbed 07/24/1997 Zoster recombinant adjuvante d (SHINGRIX) 10/11/2021,08/08/2021 Family History Medical History Relation Comments Hypertension Maternal Grandmother No Known Problems Mother Relation Status Comments Father Maternal Grandfather Maternal Grandmother Mother Alive Paternal Grandfather Paternal Grandmother Social History Tobacco Use Types Packs/Day Years Used Date Smoking Tobacco: Former Cigarettes Q uit: 12/03/1983 Passive Smoke Exposure: Past Smokeless Tobacco: Never Tobacco Cessation:Counseling Given: Not Answered Alcohol Use Standard Drinks/Week Comments Not Currently 0 (1 standard drink = 0.6 oz pur e alcohol) occ Social Connection and Isolation Panel [NHANES] A nswer Date Recorded Frequency of Communication with Friends and Fami ly Not on file 12/23/2023 How often do you get together with friends or re latives? Once a week 12/23/2023 Attends [employer] Services Not on file 12/22 Active Member of Clubs or Organizations Not on f ile 12/23/2023 Attends Club or Organization Meetings Not on heena e 12/23/2023 Marital Status Not on file 12/23/2023 AUDIT-C Answer Date Recorded Q1: How often do you have a drink containing alc ohol? 2-4 times a month 10/20/2022 Q2: How many drinks containi ng alcohol do you have on a typical day when you are drinking? 1 or 2 10/20/2022 Q3: How often do you have si x or more drinks on one occasion? Never 10/20/2022 PHQ-2 Answer Date Recorded PHQ-2 Score 2 12/23/2023 [facility] Occupat ional [facility] - Occupational Stress Questionnaire Answer Date Recorded Do you feel stress - tense, restless, nervous, or anxious, or unable to sleep at night because your mind is troubled all the time - these days? Rather much 12/23/2023 Exercise Vital Sign Answer Date Recorde d On average, how many days pe r week do you engage in moderate to strenuous exercise (like a brisk walk)? 2 days Minutes of Exercise per Session Not on file 12/23/2023 Adolescent Education Answer Date Record ed Getting School Help Needed Not on file 12/07 Food Insecurity Answer Date Recorded Within the past 12 months, d id you worry that your food would run out before you got money to buy more? No 1 Within the past 12 months, d id the food you bought just not last and you didn t have money to get more? Patient declined 12/23/2023 Housing Stability Answer Date Recorded Do you have housing? (Housin g is defined as stable permanent housing and does not include staying ouside in a car, in a tent, in an abandoned building, in an overnight care home, 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.) Yes 12/23/2023 Are you worried about losing your housing? No 12/23/2023 Financial Resource Strain Answer Date R ecorded Within the past 12 months, h ave you or your family members you live with been unable to get utilities (heat, electricity) when it was really needed? No 12/23/2023 Transportation Needs Answer Date Record ed Within the past 12 months, h as lack of transportation kept you from medical appointments, getting your medicines, non-medical meetings or appointments, work, or from getting things that you need? No 12/23/2023 Interpersonal Safety Answer Date Record ed Do you feel physically and e motionally safe where you currently live? Yes 10/13/2023 Within the past 12 months, h ave you been hit, slapped, kicked or otherwise physically hurt by someone? No 10/13/2023 Within the past 12 months, h ave you been humiliated or emotionally abused in other ways by your partner or ex-partner? 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 SUPERINTENDENT Gender Identity Not on file Sexual Orientation Not on file Occupation Industry Job Start Date Job End Date Not on file Not on file Not on file Not on file Last Filed Vital Signs Vital Sign Reading Time Taken Comments Blood Pressure 132/80 01/31/2024 3:29 PM HOTSHOT SUPERINTENDENT Pulse 86 01/31/2024 3:29 PM HOTSHOT SUPERINTENDENT Temperature 36.4 C (97.6 F) 01/31/2024 3:29 PM HOTSHOT SUPERINTENDENT Respiratory Rate 20 01/31/2024 3:29 PM HOTSHOT SUPERINTENDENT Oxygen Saturation 94% 01/31/2024 3:29 PM HOTSHOT SUPERINTENDENT Inhaled Oxygen Concentration - - Weight 134.2 kg (295 lb 12.8 oz) 01/31/2024 3:29 PM HOTSHOT SUPERINTENDENT Height 173 cm (5' 8.11) 01/31/2024 3:29 PM HOTSHOT SUPERINTENDENT Body Mass Index 44.83 01/31/2024 3:29 PM HOTSHOT SUPERINTENDENT Plan of Treatment Upcoming Encounters Date Type Department Care Team (Late st Contact Info) Description 02/01/2024 3:00 PM HOTSHOT SUPERINTENDENT Office Visit [address] [phone] Manuel Ahn, [address] [place] [phone] 02/02/2024 1:30 PM HOTSHOT SUPERINTENDENT Therapy Visit [facility] [address] [facility] [address] [place] [phone] Alicja Roldan, OT [address] [place] [phone] 02/05/2024 8:00 PM HOTSHOT SUPERINTENDENT Therapy Visit [facility] [place] [address] [place] [address] [address] [place] [phone] 02/13/2024 4:30 PM HOTSHOT SUPERINTENDENT Oncology Visit [facility] [address] [place] [phone] Marian Agustin APRN JOURNEYMAN PRESS OPERATOR [address] [facility] [address] [place], [place] [address] 03/01/2024 7:00 AM HOTSHOT SUPERINTENDENT Office Visit [facility] [address] [place] [phone] Estella Hassan, [place] [address] [place] [address] 03/23/2024 2:00 PM HOTSHOT SUPERINTENDENT Office Visit [facility] [address] [place] [phone] Lizet Mann PA-C [address] [place] [address] 03/29/2024 3:30 PM HOTSHOT SUPERINTENDENT Office Visit [facility] [address] [phone] Hakeem Chacko MBBS [address] [place] [address] 05/03/2024 3:00 PM HOTSHOT SUPERINTENDENT Office Visit [facility] [address] [place] [phone] Gaurav Valenzuela, NESSA [address] [address] 05/22/2024 10:30 AM CDT Office Visit [address] [phone] Estella Hassan, [place] [address] [place] [address] 05/22/2024 11:30 AM CDT Office Visit [address] [phone] Va Glez MD [address] [place] [phone] Health Maintenance Due Date Last Done Comments CT COLONOGRAPHY 1958 EYE EXAM 1960 FIT 1958 FLEX SIG 1958 sDNA (Cologuard) 1958 COLONOSCOPY 1968 COLORECTAL CANCER SCREENING 1968 A1C 06/22/2024 12/23/2023, 07/0 04/2023, 06/13/2023, Additional history exists ASTHMA CONTROL TEST 06/22/2024 12/23/2023, 12/15/2023, 11/11/2023, Additional history exists PHQ-9 06/22/2024 12/23/2023, 080 03/2023, 03/24/2023, Additional history exists ASTHMA ACTION PLAN 07/04/2024 07/05/2023, 0 07/05/2023, 07/05/2023, Additional history exists MICROALBUMIN 09/12/2024 09/13/2023, 12/0 11/2021, 02/11/2021, Additional history exists ANNUAL REVIEW OF HM ORDERS 12/22/202412/22, 01/18/2023, 01/28/2022, Additional history exists DIABETIC FOOT EXAM 12/22/2024 12/23/2023, 1 , 10/20/2022, Additional history exists FALL RISK ASSESSMENT 12/22/2024 12/23/2023, 10/13/2023, 10/20/2022, Additional history exists LIPID 12/22/2024 12/23/2023, 110 09/2022, 11/04/2020, Additional history exists MEDICARE ANNUAL WELLNESS VISIT 12/22/2024 12/23/2023, 10/20/2022, 07/03/2018 BMP 01/01/2025 01/02/2024, 10/13, 11/06/2023, Additional history exists ADVANCE CARE PLANNING 10/21/2027 10/20/2022 , 07/09/2020, 06/12/2020 DTAP/TDAP/TD IMMUNIZATION (2 - Td or Tdap) 01/03/2028 01/02/2018, 11/23/1999, 07/24/1997 HEPATITIS C SCREENING Completed 03/30/2016 HIV SCREENING Completed 07/11/2017 DEPRESSION ACTION PLAN Completed 8, 12/24/2016, 11/03/2015, Additional history exists ZOSTER IMMUNIZATION Completed 10/11/2021, RSV VACCINE Completed 01/25/2023 AORTIC ANEURYSM SCREENING (SYSTEM ASSIGNED) Completed 03/18/2023, 10/22/2022, 10/27/2021, Additional history exists Pneumococcal Vaccine: 65+ Years Completed 05/01/2023, 01/14/2017 INFLUENZA VACCINE Completed 11/06/2023, , 11/07/2021, Additional history exists COVID-19 Vaccine Completed 12/23/2023, 03/2023, 12/25/2021, Additional history exists Medicare Annual MTM Pharmacist Visit (once per calendar year) Completed 01/26/2024, 02/19/2022 HPV IMMUNIZATION Aged Out No longer e ligible based on patient's age to complete this topic MENINGITIS IMMUNIZATION Aged Out No l onger eligible based on patient's age to complete this topic RSV MONOCLONAL ANTIBODY Aged Out No l onger eligible based on patient's age to complete this topic Goals Goal Patient Goal Type Associated Problems Recent Progress Patient-Stated? Author Health Maintenance Care Plan HP GENERAL PROBLEM 100%( 023 10:17 AM CDT) No Mitra Kendall LSW Note: Update on 05/25/22 Barriers: Currently without insurance Strengths: Motivated to take care of myself Patient expressed understanding of goal: Yes Action steps to achieve this goal: 1. I will continue to work with my PCP and specialists to maintain my health. 2. I will schedule medical appointments late in the day whenever possible. 3. I will schedule my yearly preventive visit. 4. Apply for Mnsure as I currently am without insurance.Going to wait for Medicare starting October 12 Create an action plan to increase financial stability Care Plan Patient expresses financial resource strain 100%( 023 10:17 AM CDT) No Mitra Kendall LSW Note: Updated on 05/25/22 Barriers: Currently not working.Doesn't have insurance Strengths: Getting SSD. Patient expressed understanding of goal: Action steps to achieve this goal: 1. I will apply for unemployment. Decided not to 2. I will explore my options for health insurance by looking in to [employer] and talking with a FRW. Completed 3. I will look for a new job and will access resources that the [employer] offers. . Sarted new job 4. Continue to use [facility] to reduce the cost of my prescriptions. Create an action plan to increase financial stability Care Plan Patient expresses financial resource strain No Josefina Patel Establish Regular Follow-Ups with PCP Care Plan HbA1C Not In Goal No Rosemarie Mcdowell RN Get HbA1C Level in Goal Care Plan HbA1C Not In Goal Rosemarie Rendon RN Understand diabetes pathophysiology and disease progression Care Plan Diabetes Self-Management Education Needed to Optimize Self-Care Behaviors Rosemarie Rendon RN Healthy Eating - follow a healthy eating pattern for diabetes Care Plan Diabetes Self-Management Education Needed to Optimize Self-Care Behaviors Rosemarie Rendon RN Note: Reviewed healthy eating Being Active - get regular physical activity, working up to at least 150 minutes per week Care Plan Diabetes Self-Management Education Needed to Optimize Self-Care Behaviors Rosemarie Rendon RN Monitoring - monitor glucose and ketones as directed Care Plan Diabetes Self-Management Education Needed to Optimize Self-Care Behaviors Rosemarie Rendon RN Taking Medication - patient is consistently taking medications as directed Care Plan Diabetes Self-Management Education Needed to Optimize Self-Care Behaviors Rosemarie Rendon RN Problem Solving - know how to prevent and manage short-term diabetes complications Care Plan Diabetes Self-Management Education Needed to Optimize Self-Care Behaviors Rosemarie Rendon RN Reducing Risks - know how to prevent and treat long-term diabetes complications Care Plan Diabetes Self-Management Education Needed to Optimize Self-Care Behaviors Rosemarie Rendon RN Healthy Coping - use available resources to cope with the challenges of managing diabetes Care Plan Diabetes Self-Management Education Needed to Optimize Self-Care Behaviors No Rosemarie Mcdowell RN Become up-to-date with health maintenance visit(s) Care Plan Health Maintenance Due or Overdue 20%(01/27/20 24 7:55 AM HOTSHOT SUPERINTENDENT) No Mitra Kendall LSW Note: Barriers: Life stressors Strengths: Engaged with clinic and Care Coordination Patient expressed understanding of goal: Yes Action steps to achieve this goal:Yes Action steps to achieve this goal: I will follow up with scheduled appointments as recommended I will take medications as prescribed. I will contact my care team with questions, concerns, support needs. I will use the clinic as a resource and I understand I can contact my clinic with 04/10 after hours services available. I will discuss, review, schedule and complete any recommended overdue health maintenance with my provider/care team. I will continue to outreach to care coordination as needed for additional resources or supports. Create an action plan to increase financial stability Care Plan Patient expresses financial resource strain 20%(01/27/20 7:56 AM HOTSHOT SUPERINTENDENT) No Mitra Kendall LSW Note: Barriers: Owe back taxes Strengths: I am working, I receive Social Security Disability Patient expressed understanding of goal: Yes Action steps to achieve this goal: 1. I will work with FRW in applying for [employer] [facility] 2. I will contact [employer] to ask if they have resources for owing back taxes Procedures Procedure Name Priority Date/Time Associated Diagnosis Comments 6 MINUTE WALK TEST Routine 01/13/2024 2: 31 PM CDT Moderate persistent asthma without complication IN PULMONARY STRESS TEST Routine 01/13/2024 2:31 PM CDT Moderate persistent asthma without complication PFT GENERAL LAB TESTING Routine 01/13/2024 1:48 PM CDT Moderate persistent asthma without complication CT CHEST W CONTRAST Routine 01/12/2024 5 :15 PM CDT Mediastinal cyst TROPONIN T, HIGH SENSITIVITY Routine 01/02/2024 3:44 PM CDT Chest discomfort CBC WITH PLATELETS Routine 01/02/2024 3: 44 PM CDT Somnolence TSH WITH FREE T4 REFLEX Routine 01/02/2024 3:44 PM CDT Somnolence COMPREHENSIVE METABOLIC PANEL Routine 01/02/2024 3:44 PM CDT Somnolence GROUP A STREPTOCOCCUS PCR THROAT SWAB Routine 12/27/2023 5:55 PM CDT Pharyngitis, unspecified etiology STREPTOCOCCUS A RAPID SCREEN W REFELX TO PCR Routine 12/27/2023 5:55 PM CDT Pharyngitis, unspecified etiology COVID-19 VIRUS (CORONAVIRUS) BY PCR Routine 12/27/2023 5:55 PM CDT Pharyngitis, unspecified etiology HEMOGLOBIN A1C Routine 12/23/2023 1:51 PM CDT Type 2 diabetes mellitus without complication, without long-term current use of insulin (H) PROSTATE SPECIFIC ANTIGEN SCREEN Routine 12/23/2023 1:51 PM CDT Screening for prostate cancer LIPID REFLEX TO DIRECT LDL PANEL Routine 12/23/2023 1:51 PM CDT Type 2 diabetes mellitus without complication, without long-term current use of insulin (H) EKG 12-LEAD, TRACING ONLY STAT 12/18/2023 7:55 AM CDT INFLUENZA A/B ANTIGEN Routine 11/20/2023 10:28 AM CDT Nausea COVID-19 VIRUS (CORONAVIRUS) BY PCR Today 11/20/2023 10:28 AM CDT Nausea US ABDOMEN LIMITED STAT 11/08/2023 9: 52 PM CDT CBC WITH PLATELETS & DIFFERENTIAL STAT 11/08/2023 8:00 PM CDT EXTRA RED TOP TUBE STAT 11/08/2023 8: 00 PM CDT CBC WITH PLATELETS AND DIFFERENTIAL STAT 11/08/2023 8:00 PM CDT TROPONIN T, HIGH SENSITIVITY STAT 11/08/2023 8:00 PM CDT NT PROBNP INPATIENT STAT 11/08/2023 8 :00 PM CDT D DIMER QUANTITATIVE STAT 11/08/2023 8:00 PM CDT LIPASE STAT 11/08/2023 8:00 PM CDT EXTRA TUBE STAT 11/08/2023 8:00 PM CDT COMPREHENSIVE METABOLIC PANEL STAT 11/08/2023 8:00 PM CDT EKG 12-LEAD, TRACING ONLY STAT 11/08/2023 7:18 PM CDT TROPONIN T, HIGH SENSITIVITY STAT 11/06/2023 11:07 PM CDT INFLUENZA A/B, RSV AND SARS-COV2 PCR STAT 11/06/2023 10:22 PM CDT ROUTINE UA WITH MICROSCOPIC REFLEX TO CULTURE STAT 11/06/2023 10:06 PM CDT CBC WITH PLATELETS & DIFFERENTIAL STAT 11/06/2023 8:53 PM CDT NT PROBNP INPATIENT STAT 11/06/2023 8 :53 PM CDT HEPATIC FUNCTION PANEL Add-On 11/06/2023 8:53 PM CDT CBC WITH PLATELETS AND DIFFERENTIAL STAT 11/06/2023 8:53 PM CDT EXTRA RED TOP TUBE STAT 11/06/2023 8: 53 PM CDT EXTRA BLUE TOP TUBE STAT 11/06/2023 8 :53 PM CDT TROPONIN T, HIGH SENSITIVITY STAT 11/06/2023 8:53 PM CDT BASIC METABOLIC PANEL STAT 11/06/2023 8:53 PM CDT EXTRA TUBE STAT 11/06/2023 8:53 PM CDT EKG 12-LEAD, TRACING ONLY STAT 11/06/2023 7:57 PM CDT ALBUMIN RANDOM URINE QUANTITATIVE Routine 09/13/2023 2:59 PM CDT Type 2 diabetes mellitus with hyperglycemia, without long-term current use of insulin (H) ASTHMA ACTION PLAN Routine 02/11/2021 4: 19 PM HOTSHOT SUPERINTENDENT HIV ANTIGEN ANTIBODY COMBO Routine 07/11/2017 10:26 AM CDT Screening for human immunodeficiency virus Special screening for malignant neoplasms, colon Morbid obesity (H) HEPATITIS C SCREEN REFLEX TO HCV RNA QUANT AND GENOTYPE Routine 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 Morbid obesity due to excess calories (H) from Last 3 Months or Most Recently Relevant to Health Maintenance Results * 6 minute walk test (01/13/2024 2:31 PM CDT) 6 min walk (FT) 800 1,202 ft 6 Min Walk (M) 244 366 m us Lizet Mann PA-C PFT ORDERABLES Final Result * General PFT Lab (Please always keep checked) (01/13/2024 1:48 PM CDT) FIO2-Pre 0.21 % [facility] 01/13/2024 1:48 PM CDT Narrative [facility] - 01/14/2024 12:17 PM CDT IMPRESSION: Six minute walk distance is reduced indicating a decrease in exercise tolerance. There is no significant oxygen desaturation during the six minute walk on room air. Kayleigh Castle MD This interpretation has been electronically signed: KAYLEIGH CASTLE 01/14/2024 12:04:29 PM us Lizet Mann PA-C PFT ORDERABLES Final Result [facility] PFT * CT Chest w contrast (01/12/2024 5:15 PM CDT) Anatomical Region Laterality Modality Chest, SUBRAD CT BODY, UMP CT CHEST, RAD CT Computed Tomography Impressions 01/13/2024 9:38 AM CDT IMPRESSION: 1. Ascending aortic aneurysm. 2. Small right lower paratracheal low density nodes or pericardial recess fluid similar to previous. LONNIE CAREY MD Narrative 01/13/2024 9:[address] of the chest with contrast HISTORY: Mediastinal cyst. COMPARISON STUDY: 06/05/2023. FINDINGS: Scattered mediastinal lymph nodes, not enlarged by size criteria. Small right lower paratracheal low density nodes or fluid similar to previous. Ascending aorta is 4.5 cm in 2-D transaxial dimension. Main pulmonary artery and aorta are not enlarged. 5 mm nodule right middle lobe image 240 series 4 unchanged. Other scattered tiny nodules in the lungs are also unchanged. Evaluation of the upper abdomen is limited. Cholelithiasis. Mild thickening of the left adrenal gland. Mild distal esophageal wall thickening. Evaluation of the upper abdomen is limited Bones: No suspicious bony lesions. Procedure Note Lonnie Carey MD - 01/13/2024 CT of the chest with contrast HISTORY: Mediastinal cyst. COMPARISON STUDY: 06/05/2023. FINDINGS: Scattered mediastinal lymph nodes, not enlarged by size criteria. Small right lower paratracheal low density nodes or fluid similar to previous. Ascending aorta is 4.5 cm in 2-D transaxial dimension. Main pulmonary artery and aorta are not enlarged. 5 mm nodule right middle lobe image 240 series 4 unchanged. Other scattered tiny nodules in the lungs are also unchanged. Evaluation of the upper abdomen is limited. Cholelithiasis. Mild thickening of the left adrenal gland. Mild distal esophageal wall thickening. Evaluation of the upper abdomen is limited Bones: No suspicious bony lesions. IMPRESSION: 1. Ascending aortic aneurysm. 2. Small right lower paratracheal low density nodes or pericardial recess fluid similar to previous. LONNIE CAREY MD us Marian Vazquezberg APPRENTICE PLANT ATTENDANT JOURNEYMAN PRESS OPERATOR IMG CT ORDERAB LES Final Result * Troponin T, High Sensitivity (01/02/2024 3:44 PM CDT) Only the most recent of4 resultswithin the time period is included. Troponin T, High Sensitivity 19 <=22 ng/L 01/03/2024 2:38 AM CDT [facility] Comment: Either a High Sensitivity Troponin T baseline (0 hours) value = 100 ng/L, or an increase in High Sensitivity Troponin T = 7 ng/L at 2 hours compared to 0 hours (2-0 hours), suggests myocardial injury, and urgent clinical attention is required. If the 2-0 hours increase is <7 ng/L, a High Sensitivity Troponin T result above gender-specific reference ranges warrants further evaluation. Recommendations for further evaluation include correlation with clinical decision-making tool (e.g., HEART), a 3rd High Sensitivity Troponin T test 2 hours after the 2nd (a 20% change from baseline would represent concern), admission for observation, close PCC/cardiology follow-up, or urgent outpatient provocative testing. Blood BLOOD SPECIMEN / Unknown Venipuncture / Unknown 01/02/2024 3:44 PM CDT 01/02/2024 3:44 PM CDT Kd Nolasco MD LAB - BLOOD ORDERABLES Final Res ult [facility] [place] [address] [facility], [address] [place] [phone] * TSH with free T4 reflex (01/02/2024 3:44 PM CDT) TSH 1.23 0.30 - 4.20 uIU/mL 01/03/2024 2:38 AM CDT [facility] Blood BLOOD SPECIMEN / Unknown Venipuncture / Unknown 01/02/2024 3:44 PM CDT 01/02/2024 3:44 PM CDT us Kd Nolasco MD LAB - BLOOD ORDERABLES Final Res ult [facility] [place] [facility] [address] [facility] [address], [address] [place] [phone], [facility] * (ABNORMAL) Comprehensive metabolic panel (BMP + Alb, Alk Phos, ALT, AST, Total. Bili, TP) (01/02/2024 3:44 PM CDT) Only the most recent of2 resultswithin the time period is included. Sodium 141 135 - 145 mmol/L 01/03/2024 2:38 AM CDT [facility] Potassium 4.4 3.4 - 5.3 mmol/L 01/03/2024 2:38 AM CDT [facility] Carbon Dioxide (CO2) 29 22 - 29 mmol/L 01/03/2024 2:38 AM CDT [facility] Anion Gap 10 7 - 15 mmol/L 01/03/2024 2:38 AM CDT [facility] Urea Nitrogen 20.7 8.0 - 23.0 mg/dL 01/03/2024 2:38 AM CDT [facility] Creatinine 0.90 0.67 - 1.17 mg/dL 01/03/2024 2:38 AM CDT [facility] GFR Estimate >90 >60 mL/min/1.7 3m2 01/03/2024 2:38 AM CDT [facility] Comment:eGFR calculated us2020 CKD-EPI equation. Calcium 9.8 8.8 - 10.4 mg/dL 01/03/2024 2:38 AM CDT [facility] Comment:Reference intervals for this test were updated on 09/27/2023 to reflect our healthy population more accurately. There may be differences in the flagging of prior results with similar values performed with this method. Those prior results can be interpreted in the context of the updated reference intervals. Chloride 102 98 - 107 mmol/L 01/03/2024 2:38 AM CDT [facility] Glucose 174(H) 70 - 99 mg/dL 01/03/2024 2:38 AM CDT [facility] Alkaline Phosphatase 100 40 - 150 U/L 01/03/2024 2:38 AM CDT [facility] AST 20 0 - 45 U/L 01/03/2024 2:38 AM CDT [facility] ALT 28 0 - 70 U/L 01/03/2024 2:38 AM CDT [facility] Protein Total 7.0 6.4 - 8.3 g/dL 01/03/2024 2:38 AM CDT [facility] Albumin 4.0 3.5 - 5.2 g/dL 01/03/2024 2:38 AM CDT [facility] Bilirubin Total 0.6 <=1.2 mg/dL 01/03/2024 2:38 AM CDT [facility] Blood BLOOD SPECIMEN / Unknown Venipuncture / Unknown 01/02/2024 3:44 PM CDT 01/02/2024 3:44 PM CDT us Kd Nolasco MD LAB - BLOOD ORDERABLES Final Res ult [facility] [place] [address] [facility], [address] [place] [phone] * CBC with platelets (01/02/2024 3:44 PM CDT) WBC Count 6.6 4.0 - 11.0 10e3/uL 01/02/2024 3:51 PM CDT [facility] RBC Count 4.97 4.40 - 5.90 10e6/uL 01/02/2024 3:51 PM CDT [facility] Hemoglobin 14.1 13.3 - 17.7 g/dL 01/02/2024 3:51 PM CDT [facility] Hematocrit 41.2 40.0 - 53.0 % 01/02/2024 3:51 PM CDT [facility] MCV 83 78 - 100 fL 01/02/2024 3:51 PM CDT [facility] MCH 28.4 26.5 - 33.0 pg 01/02/2024 3:51 PM CDT [facility] MCHC 34.2 31.5 - 36.5 g/dL 01/02/2024 3:51 PM CDT [facility] RDW 13.6 10.0 - 15.0 % 01/02/2024 3:51 PM CDT [facility] Platelet Count 223 150 - 450 10e3/uL 01/02/2024 3:51 PM CDT [facility] Blood BLOOD SPECIMEN / Unknown Venipuncture / Unknown 01/02/2024 3:44 PM CDT 01/02/2024 3:44 PM CDT us Kd Nolasco MD LAB - BLOOD ORDERABLES Final Res ult [facility] [address], [address] [place] [address], [facility] * Symptomatic COVID-19 Virus (Coronavirus) by PCR Nose (12/27/2023 5:55 PM CDT) Only the most recent of2 resultswithin the time period is included. SARS CoV2 PCR Negative Negative 12/29/2023 1:37 PM CDT [facility] Comment:NEGATIVE: SARS-CoV-2 (COVID-19) RNA not detected, presumed negative. Swab NASAL STRUCTURE / Unknown Non-blood Collection / Unknown 12/27/2023 5:55 PM CDT 12/27/2023 7:02 PM CDT Narrative [facility] - 12/29/2023 1:37 PM CDT Testing was performed using the giuliana SARS-CoV-2 assay on the giuliana [id number] System. This test should be ordered for the detection of SARS-CoV-2 in individuals who meet SARS-CoV-2 clinical and/or epidemiological criteria. Test performance is unknown in asymptomatic patients. This test is for in vitro diagnostic use under the FDA EUA for laboratories certified under CLIA to perform high and/or moderate complexity testing. This test has not been FDA cleared or approved. A negative result does not rule out the presence of PCR inhibitors in the specimen or target RNA in concentration below the limit of detection for the assay. The possibility of a false negative should be considered if the patient's recent exposure or clinical presentation suggests COVID-19. This test was validated by the [facility]. This laboratory is certified under the Clinical Laboratory Improvement Amendments of 1988 (CLIA-88) as qualified to perform high and/or moderate complexity laboratory testing. Debbie Palacios PA-C LAB - MICRO GENERAL ORDE GURPREET Final Result [facility] Inf. Diseases Diag. Lab [address], [address] [place] [address], [facility] * Streptococcus A Rapid Screen w/Reflex to PCR - Clinic Collect (12/27/2023 5:55 PM CDT) Group A Strep antigen Negative Negative 12/27/2023 6:25 PM CDT AN LABORATORY Swab STRUCTURE OF ANTERIOR PORTION OF NECK / Unknown Non-blood Collection / Unknown 12/27/2023 5:55 PM CDT 12/27/2023 6:17 PM CDT Debbie Palacios PA-C LAB - MICRO GENERAL HAYDEN VÁZQUEZ Final Result AN LABORATORY [facility] [address] [facility] ([facility], 1st floor of clinic) [place] [address], [facility] * Group A Streptococcus PCR Throat Swab (12/27/2023 5:55 PM CDT) Pathologist [facility] Group A strep by PCR Not Detected Not Detected 12/28/2023 2:42 PM CDT [facility] LAB[facility]AT[facility] Swab STRUCTURE OF ANTERIOR PORTION OF NECK / Unknown Non-blood Collection / Unknown 12/27/2023 5:55 PM CDT 12/27/2023 6:25 PM CDT Narrative [facility] - 12/28/2023 2:42 PM CDT The Xpert Xpress Strep A test, performed on the [employer], is a rapid, qualitative in vitro diagnostic test for the detection of Streptococcus pyogenes (Group A -hemolytic Streptococcus, Strep A) in throat swab specimens from patients with signs and symptoms of pharyngitis. The Xpert Xpress Strep A test can be used as an aid in the diagnosis of Group A Streptococcal pharyngitis. The assay is not intended to monitor treatment for Group A Streptococcus infections. The Xpert Xpress Strep A test utilizes an automated real-time polymerase chain reaction (PCR) to detect Streptococcus pyogenes DNA. Debbie Palacios PA-C LAB - MICRO GENERAL ORDE RABZAID Final Result [facility] Inf. Diseases Diag. Lab [address], [address] [place] [address] * (ABNORMAL) PSA, screen (12/23/2023 1:51 PM CDT) Prostate Specific Antigen Screen 6.04(H) 0.00 - 4.50 ng/mL 12/23/2023 9:54 PM CDT U LABORATORY Blood BLOOD SPECIMEN / Unknown Venipuncture / Unknown 12/23/2023 1:51 PM CDT 12/23/2023 1:51 PM CDT Narrative LABORATORY - 12/23/2023 9:54 PM CDT This result is obtained using the Amanda Elecsys total PSA method on the giuliana e801 immunoassay analyzer, which is an ultrasensitive method. Results obtained with different assay methods or kits cannot be used interchangeably. This test is intended for initial prostate cancer screening. PSA values exceeding the age-specific limits are suspicious for prostate disease, but additional testing, such as prostate biopsy, is needed to diagnose prostate pathology. The [employer] recommends annual examination with digital rectal examination and serum PSA beginning at age 50 and for men with a life expectancy of at least 10 years after detection of prostate cancer. For men in high-risk groups, such as Americans or men with a first-degree relative diagnosed at a younger age, testing should begin at a younger age. It is generally recommended that information be provided to patients about the benefits and limitations of testing and treatment so they can make informed decisions. Va Glez MD LAB - BLOOD ORDERABLES Final Res ult [facility] [place] [facility] [address] [facility], [address] [place] [address], [facility] * Lipid panel reflex to direct LDL Non-fasting (12/23/2023 1:51 PM CDT) Cholesterol 145 <200 mg/dL 12/23/2023 9:54 PM CDT [facility] LAB[facility]ORY Triglycerides 111 <150 mg/dL 12/23/2023 9:54 PM CDT [facility] Direct Measure HDL 55 >=40 mg/dL 2023 9:54 PM CDT [facility] LDL Cholesterol Calculated 68 <100 mg/dL 12/23/2023 9:54 PM CDT [facility] Non HDL Cholesterol 90 <130 mg/dL 12/23/2023 9:54 PM CDT [facility] Patient Fasting > 8hrs? No 12/23/2023 9:54 PM CDT [facility] Blood BLOOD SPECIMEN / Unknown Venipuncture / Unknown 12/23/2023 1:51 PM CDT 12/23/2023 1:51 PM CDT Narrative [facility] LAB[facility] - 12/23/2023 9:54 PM CDT Cholesterol Desirable: < 200 mg/dL Borderline High: 200 - 239 mg/dL High: >= 240 mg/dL Triglycerides Normal: < 150 mg/dL Borderline High: 150 - 199 mg/dL High: 200-499 mg/dL Very High: >= 500 mg/dL Direct Measure HDL Female: >= 50 mg/dL Male: >= 40 mg/dL LDL Cholesterol Desirable: < 100 mg/dL Above Desirable: 100 - 129 mg/dL Borderline High: 130 - 159 mg/dL High: 160 - 189 mg/dL Very High: >= 190 mg/dL Non HDL Cholesterol Desirable: < 130 mg/dL Above Desirable: 130 - 159 mg/dL Borderline High: 160 - 189 mg/dL High: 190 - 219 mg/dL Very High: >= 220 mg/dL us Va Glez MD LAB - BLOOD ORDERABLES Final Res ult [facility] [place] [facility] [address] [facility] [address] [facility], [address] [place] [address] * (ABNORMAL) Hemoglobin A1c (12/23/2023 1:51 PM CDT) Estimated Average Glucose 214(H) <117 mg/dL 12/23/2023 1:56 PM CDT CR LABORATORY Hemoglobin A1C 9.1(H) 0.0 - 5.6 % 12/23/2023 1:56 PM CDT CR LABORATORY Comment: Normal <5.7% Prediabetes 5.7-6.4% Diabetes 6.5% or higher Note: Adopted from ADA consensus guidelines. Blood BLOOD SPECIMEN / Unknown Venipuncture / Unknown 12/23/2023 1:51 PM CDT 12/23/2023 1:51 PM CDT Narrative CR LABORATORY - 12/23/2023 1:56 PM CDT Results consistent with previous, repeat testing unnecessary us Va Glez MD LAB - BLOOD ORDERABLES Final Res ult CR LABORATORY [facility] [address] (no room number, 1st floor of clinic) [place] [address] * EKG 12 lead (12/18/2023 7:55 AM CDT) Only the most recent of3 resultswithin the time period is included. Pathologist [facility] Systolic Blood Pressure mmHg RADIOLOGY RESULTS Diastolic Blood Pressure mmHg RADIOLOGY RESULTS Ventricular Rate 84 BPM RAD IOLOGY RESULTS Atrial Rate 84 BPM RADIOLOG Y RESULTS IN Interval 140 ms RADIOLOG Y RESULTS QRS Duration 90 ms RADIOLO GY RESULTS QT 360 ms RADIOLOGY RESULTS QTc 425 ms RADIOLOGY RESULTS P [place] 75 degrees RADIOLOGY RESULTS R AXIS -36 degrees RADIOLOGY RESULTS T [place] 48 degrees RADIOLOGY RESULTS Interpretation ECG Sinus rhythm Left axis deviation Inferior infarct , age undetermined Abnormal ECG When compared with ECG of 08-Nov-2023 19:18, No significant change was found Confirmed by - EMERGENCY ROOM, PHYSICIAN ([id number]), editorial project manager KATHIA MENA ([id number]) on 12/19/2023 6:57:45 AM RADIOLOGY RESULTS 12/18/2023 7:55 AM CDT 12/19/2023 6:57 AM CDT us Ti Wang MD ECG ORDERABLES Edited Result - Final RADIOLOGY RESULTS * Influenza A & B Antigen - Clinic Collect (11/20/2023 10:28 AM CDT) Influenza A antigen Negative Negative 11/20/2023 11:00 AM CDT LABORATORY Influenza B antigen Negative Negative 11/20/2023 11:00 AM CDT LABORATORY Swab NASAL STRUCTURE / Unknown Non-blood Collection / Unknown 11/20/2023 10:28 AM CDT 11/20/2023 10:38 AM CDT Narrative LV LABORATORY - 11/20/2023 11:00 AM CDT Test results must be correlated with clinical data. If necessary, results should be confirmed by a molecular assay or viral culture. Emily Jenkins PA-C LAB - MICRO GENERAL ORDERAB LES Final Result LABORATORY [facility] Lab [address] [facility] Lab (no room number, 1st floor of clinic) [place] [address] * US Abdomen Limited (11/08/2023 9:52 PM CDT) Anatomical Region Laterality Modality Abdomen/Pelvis Ultrasound 11/08/2023 9:52 PM CDT Impressions 11/08/2023 9:58 PM CDT IMPRESSION: 1. Cholelithiasis and gallbladder sludge. Although the gallbladder wall measures slightly thick, no other secondary signs of cholecystitis are evident. 2. Hepatic steatosis and hepatomegaly. Narrative 11/08/2023 9:58 PM CDT EXAM: US ABDOMEN LIMITED LOCATION: DATE: 11/08/2023 INDICATION: abdominal pain COMPARISON: None. TECHNIQUE: Limited abdominal ultrasound. FINDINGS: GALLBLADDER: Gallstones and sludge. Gallbladder is nondistended. The wall is mildly thickened at 5 mm. No pericholecystic fluid. Negative sonographic Magallanes's sign. BILE DUCTS: No biliary dilatation. The common duct measures 3 mm. LIVER: Increased echogenicity from diffuse fatty infiltration. The liver measures 22 cm in length. RIGHT KIDNEY: No hydronephrosis. PANCREAS: The visualized portions are normal. No ascites. Procedure Note Mike Garcia MD - 11/08/2023 EXAM: US ABDOMEN LIMITED LOCATION: DATE: 11/08/2023 INDICATION: abdominal pain COMPARISON: None. TECHNIQUE: Limited abdominal ultrasound. FINDINGS: GALLBLADDER: Gallstones and sludge. Gallbladder is nondistended. The damien mildly thickened at 5 mm. No pericholecystic fluid. Negativesonographic Magallanes's sign. BILE DUCTS: No biliary dilatation. The common duct measures 3 mm. LIVER: Increased echogenicity from diffuse fatty infiltration. The livermeasures 22 cm in length. RIGHT KIDNEY: No hydronephrosis. PANCREAS: The visualized portions are normal. No ascites. IMPRESSION: 1. Cholelithiasis and gallbladder sludge. Although the gallbladder wallmeasures slightly thick, no other secondary signs of cholecystitis areevident. 2. Hepatic steatosis and hepatomegaly. Garret Drake MD [facility] US ORDERABLES Final R esult * Extra Red Top Tube (11/08/2023 8:00 PM CDT) Only the most recent of2 resultswithin the time period is included. Hold Specimen [facility] 11/08/2023 9:16 PM CDT LABORATORY Blood BLOOD SPECIMEN / Unknown Venipuncture / Unknown 11/08/2023 8:00 PM CDT 11/08/2023 8:05 PM CDT Garret Drake MD LAB - BLOOD ORDERABLES Fi nal Result [facility] Acute Care Lab [address] Lab (1st floor, no room number) [place] [address], [facility] * CBC with platelets and differential (11/08/2023 8:00 PM CDT) Only the most recent of2 resultswithin the time period is included. WBC Count 6.3 4.0 - 11.0 10e3/uL 11/08/2023 8:16 PM CDT LABORATORY RBC Count 4.88 4.40 - 5.90 10e6/uL 11/08/2023 8:16 PM CDT RH LABORATORY Hemoglobin 13.6 13.3 - 17.7 g/dL 11/08/2023 8:16 PM CDT RH LABORATORY Hematocrit 40.2 40.0 - 53.0 % 11/08/2023 8:16 PM CDT RH LABORATORY MCV 82 78 - 100 fL 11/08/2023 8:16 PM CDT RH LABORATORY MCH 27.9 26.5 - 33.0 pg 11/08/2023 8:16 PM CDT RH LABORATORY MCHC 33.8 31.5 - 36.5 g/dL 11/08/2023 8:16 PM CDT RH LABORATORY RDW 13.7 10.0 - 15.0 % 11/08/2023 8:16 PM CDT RH LABORATORY Platelet Count 203 150 - 450 10e3/uL 11/08/2023 8:16 PM CDT RH LAB[facility]ATORY % Neutrophils 71 % 11/08/2023 8:16 PM CDT [facility] LAB[facility]AT[facility] % Lymphocytes 17 % 11/08/2023 8:16 PM CDT [facility] LAB[facility]AT[facility] % Monocytes 9 % 11/08/2023 8:16 PM CDT [facility] LAB[facility] % Eosinophils 2 % 11/08/2023 8:16 PM CDT RH LAB[facility]ATORY % Basophils 0 % 11/08/2023 8:16 PM CDT RH LAB[facility]AT[facility] % Immature Granulocytes 0 % 11/08/2023 8:16 PM CDT RH LABORATORY NRBCs per 100 WBC 0 <1 /100 024 8:16 PM CDT RH LABORATORY Absolute Neutrophils 4.5 1.6 - 8.3 10e3/uL 11/08/2023 8:16 PM CDT RH LABORATORY Absolute Lymphocytes 1.1 0.8 - 5.3 10e3/uL 11/08/2023 8:16 PM CDT RH LABORATORY Absolute Monocytes 0.5 0.0 - 1.3 10e3/uL 11/08/2023 8:16 PM CDT RH LABORATORY Absolute Eosinophils 0.1 0.0 - 0.7 10e3/uL 11/08/2023 8:16 PM CDT RH LABORATORY Absolute Basophils 0.0 0.0 - 0.2 10e3/uL 11/08/2023 8:16 PM CDT RH LABORATORY Absolute Immature Granulocytes 0.0 <=0.4 10e3/uL 11/08/2023 8:16 PM CDT RH LABORATORY Absolute NRBCs 0.0 10e3/uL 11/08/2023 8:16 PM CDT LABORATORY Blood BLOOD SPECIMEN / Unknown Venipuncture / Unknown 11/08/2023 8:00 PM CDT 11/08/2023 8:05 PM CDT Garret Drake MD LAB - BLOOD ORDERABLES Fi nal Result Performing Organization Address City/[facility]/ZIP Co de Phone Number [facility] [address] Lab (1st floor, no room number) [address] [place] [address] * BNP (11/08/2023 8:00 PM CDT) Only the most recent of2 resultswithin the time period is included. N terminal Pro BNP Inpatient <36 0 - 900 pg/mL 11/08/2023 9:12 PM CDT LABORATORY Comment: Reference range shown and results flagged as abnormal are suggested inpatient cut points for confirming diagnosis if CHF in an acute setting. Establishing a baseline value for each individual patient is useful for follow-up. An inpatient or emergency department NT-proPBNP <300 pg/mL effectively rules out acute CHF, with 99% negative predictive value. The outpatient non-acute reference range for ruling out CHF is: 0-125 pg/mL (age 18 to less than 75) 0-450 pg/mL (age 75 yrs and older) Blood BLOOD SPECIMEN / Unknown Venipuncture / Unknown 11/08/2023 8:00 PM CDT 11/08/2023 8:05 PM CDT Garret Drake MD LAB - BLOOD ORDERABLES Fi nal Result [facility] [address] Lab (1st floor, no room number) [place] [id number] [place] [address] * Lipase (11/08/2023 8:00 PM CDT) Lipase 32 13 - 60 U/L 11/08/2023 8:34 PM CDT LABORATORY Blood BLOOD SPECIMEN / Unknown Venipuncture / Unknown 11/08/2023 8:00 PM CDT 11/08/2023 8:05 PM CDT Garret Drake MD LAB - BLOOD ORDERABLES Fi nal Result RH LABORATORY [facility] [address] Lab (1st floor, no room number) [place] [address] * D dimer quantitative (11/08/2023 8:00 PM CDT) D-Dimer Quantitative 0.37 0.00 - 0.50 ug/mL FEU 11/08/2023 8:50 PM CDT LABORATORY Blood BLOOD SPECIMEN / Unknown Venipuncture / Unknown 11/08/2023 8:00 PM CDT 11/08/2023 8:05 PM CDT Narrative LABORATORY - 11/08/2023 8:50 PM CDT This D-dimer assay is intended for use in conjunction with a clinical pretest probability assessment model to exclude pulmonary embolism (PE) and deep venous thrombosis (DVT) in outpatients suspected of PE or DVT. The cut-off value is 0.50 ug/mL FEU. For patients 50 years of age or older, the application of age-adjusted cut-off values for D-Dimer may increase the specificity without significant effect on sensitivity. The literature suggested calculation age adjusted cut-off in ug/L = age in years x 10 ug/L. The results in this laboratory are reported as ug/mL rather than ug/L. The calculation for age adjusted cut off in ug/mL= age in years x 0.01 ug/mL. For example, the cut off for a 76 year old male is 74 x 0.01 ug/mL = 0.76 ug/mL (760 ug/L). Alesia Kearney et al. Age adjusted D-dimer cut-off levels to rule out pulmonary embolism: The ADJUST-PE Study. BAHMAN 2014;311:5434-6304.; LESLY Macedo et al. Diagnostic accuracy of conventional or age adjusted D-dimer cutoff values in older patients with suspected venous thromboembolism. Systemic review and meta-analysis. BMJ 2013:346:f2492. Garret Drake MD LAB - BLOOD ORDERABLES Fi nal Result LABORATORY [facility] [address] Lab (1st floor, no room number) [place] [address], [facility] * Symptomatic Influenza A/B, RSV, & SARS-CoV2 PCR (COVID-19) Nose (11/06/2023 10:22 PM CDT) [facility] Influenza A PCR Negative Negative 11/06/2023 11:05 PM CDT RH LABORATORY Influenza B PCR Negative Negative 11/06/2023 11:05 PM CDT RH LABORATORY RSV PCR Negative Negative 11/06/2023 11:05 PM CDT RH LABORATORY SARS CoV2 PCR Negative Negative 11/06/2023 11:05 PM CDT RH LABORATORY Comment:NEGATIVE: SARS-CoV-2 (COVID-19) RNA not detected, presumed negative. Swab NASAL STRUCTURE / Unknown Non-blood Collection / Unknown 11/06/2023 10:22 PM CDT 11/06/2023 10:27 PM CDT Narrative LABORATORY - 11/06/2023 11:05 PM CDT Testing was performed using the Xpert Xpress CoV2/Flu/RSV Assay on the [employer] Gene[employer]pert Instrument. This test should be ordered for the detection of SARS- CoV2, influenza, and RSV viruses in individuals with signs and symptoms of respiratory tract infection. This test is for in vitro diagnostic use under the [place] FDA for laboratories certified under CLIA to perform high or moderate complexity testing. This test has been [place] FDA cleared. A negative result does not rule out the presence of PCR inhibitors in the specimen or target RNA in concentration below the limit of detection for the assay. If only one viral target is positive but coinfection with multiple targets is suspected, the sample should be re-tested with another FDA cleared, approved, or authorized test, if coninfection would change clinical management. This test was validated by the [facility] [employer]. These laboratories are certified under the Clinical Laboratory Improvement Amendments of 1988 (CLIA-88) as qualified to perfom high complexity laboratory testing. us Vamshi Tobin DO LAB - MICRO GENERAL ORDERABLES F inal Result LABORATORY [facility] [address] Lab (1st floor, no room number) [place] [address], [facility] * (ABNORMAL) UA with Microscopic reflex to Culture (11/06/2023 10:06 PM CDT) Color Urine Yellow Colorless, Straw, Light Yellow, Yellow 11/06/2023 10:22 PM CDT LABORATORY Appearance Urine Clear Clear 11/06/19 10:22 PM CDT LABORATORY Glucose Urine 100(A) Negative mg/dL 11/06/2023 10:22 PM CDT LABORATORY Bilirubin Urine Negative Negative 10:22 PM CDT LABORATORY Ketones Urine Negative Negative mg/dL 11/06/2023 10:22 PM CDT LABORATORY Specific [place] Urine 1.034 1.003 - 1.035 11/06/2023 10:22 PM CDT LABORATORY Blood Urine Negative Negative 11/06/2023 10:22 PM CDT LABORATORY pH Urine 5.5 5.0 - 7.0 11/06/2023 10:22 PM CDT LABORATORY Protein Albumin Urine 10(A) Negative mg/dL 11/06/2023 10:22 PM CDT LABORATORY Urobilinogen Urine Normal Normal, 2.0 mg/dL 11/06/2023 10:22 PM CDT LABORATORY Nitrite Urine Negative Negative 11/06/2023 10:22 PM CDT LABORATORY Leukocyte Esterase Urine Negative Negative 11/06/2023 10:22 PM CDT LABORATORY Mucus Urine Present(A) None Seen /LPF 11/06/2023 10:22 PM CDT LABORATORY RBC Urine <1 <=2 /HPF 11/06/2023 10:22 PM CDT LABORATORY WBC Urine <1 <=5 /HPF 11/06/2023 10:22 PM CDT LABORATORY Squamous Epithelials Urine <1 <=1 /HPF 11/06/2023 10:22 PM CDT LABORATORY Urine MID-STREAM URINE SPECIMEN / Unknown Non-blood Collection / Unknown 11/06/2023 10:06 PM CDT 11/06/2023 10:10 PM CDT Narrative RH LABORATORY - 11/06/2023 10:22 PM CDT Urine Culture not indicated us Vamshi Aiken DO LAB - URINE ORDERABLES Final Res ult LABORATORY [facility] [address] Lab (1st floor, no room number) [place] [phone] [place] [address] * Extra Blue Top Tube (11/06/2023 8:53 PM CDT) Hold Specimen JIC 11/06/2023 10:01 PM CDT LABORATORY Blood STRUCTURE OF LEFT UPPER LIMB / Unknown Venipuncture / Unknown 11/06/2023 8:53 PM CDT 11/06/2023 8:58 PM CDT us Vamshi Ye DO LAB - BLOOD ORDERABLES Final Res ult LABORATORY [facility] Lab [address] Lab (1st floor, no room number) [address] [place] [address] * Hepatic panel (11/06/2023 8:53 PM CDT) Protein Total 7.0 6.4 - 8.3 g/dL 11/06/2023 10:05 PM CDT [facility] LABORATORY Albumin 4.1 3.5 - 5.2 g/dL 11/06/2023 10:05 PM CDT RH LABORATORY Bilirubin Total 0.8 <=1.2 mg/dL 11/06/2023 10:05 PM CDT RH LABORATORY Alkaline Phosphatase 93 40 - 150 U/L 11/06/2023 10:05 PM CDT RH LABORATORY AST 22 0 - 45 U/L 11/06/2023 10:05 PM CDT RH LABORATORY ALT 33 0 - 70 U/L 11/06/2023 10:05 PM CDT RH LABORATORY Bilirubin Direct <0.20 0.00 - 0.30 mg/dL 11/06/2023 10:05 PM CDT RH LABORATORY Blood STRUCTURE OF LEFT UPPER LIMB / Unknown Venipuncture / Unknown 11/06/2023 8:53 PM CDT 11/06/2023 8:58 PM CDT us Vamshi Tobin DO LAB - BLOOD ORDERABLES Final Res ult RH LABORATORY [facility] [address] Lab (1st floor, no room number) [place] [address] * (ABNORMAL) Basic metabolic panel (BMP) (11/06/2023 8:53 PM CDT) Sodium 140 135 - 145 mmol/L 11/06/2023 9:18 PM CDT LABORATORY Potassium 3.9 3.4 - 5.3 mmol/L 11/06/2023 9:18 PM CDT LABORATORY Chloride 102 98 - 107 mmol/L 11/06/2023 9:18 PM CDT LABORATORY Carbon Dioxide (CO2) 25 22 - 29 mmol/L 11/06/2023 9:18 PM CDT LABORATORY Anion Gap 13 7 - 15 mmol/L 11/06/2023 9:18 PM CDT LABORATORY Urea Nitrogen 21.0 8.0 - 23.0 mg/dL 11/06/2023 9:18 PM CDT LABORATORY Creatinine 0.77 0.67 - 1.17 mg/dL 11/06/2023 9:18 PM CDT LABORATORY GFR Estimate >90 >60 mL/min/1.7 3m2 11/06/2023 9:18 PM CDT LABORATORY Comment:eGFR calculated usin g 2020 CKD-EPI equation. Calcium 9.2 8.8 - 10.4 mg/dL 11/06/2023 9:18 PM CDT RH LABORATORY Comment:Reference intervals for this test were updated on 09/27/2023 to reflect our healthy population more accurately. There may be differences in the flagging of prior results with similar values performed with this method. Those prior results can be interpreted in the context of the updated reference intervals. Glucose 210(H) 70 - 99 mg/dL 11/06/2023 9:18 PM CDT LABORATORY Blood STRUCTURE OF LEFT UPPER LIMB / Unknown Venipuncture / Unknown 11/06/2023 8:53 PM CDT 11/06/2023 8:58 PM CDT us Vamshi Tobin DO LAB - BLOOD ORDERABLES Final Res ult [facility] Lab [address] Lab (1st floor, no room number) [place] [address] * Albumin Random Urine Quantitative with Creat Ratio (09/13/2023 2:59 PM CDT) Creatinine Urine mg/dL 95.5 mg/dL 09/13/2023 9:46 PM CDT [facility] LAB[facility]ATORY Comment:The reference ranges have not been established in urine creatinine. The results should be integrated into the clinical context for interpretation. Albumin Urine mg/L <12.0 mg/L 2023 9:46 PM CDT [facility] LAB[facility]ATORY Comment:The reference ranges have not been established in urine albumin. The results should be integrated into the clinical context for interpretation. Albumin Urine mg/g Cr 09/13/2023 9:46 PM CDT [facility] LAB[facility]ATORY Comment: Unable to calculate, urine albumin and/or urine creatinine is outside detectable limits. Microalbuminuria is defined as an albumin:creatinine ratio of 17 to 299 for males and 25 to 299 for females. A ratio of albumin:creatinine of 300 or higher is indicative of overt proteinuria. Due to biologic variability, positive results should be confirmed by a second, first-morning random or 24-hour timed urine specimen. If there is discrepancy, a third specimen is recommended. When 2 out of 3 results are in the microalbuminuria range, this is evidence for incipient nephropathy and warrants increased efforts at glucose control, blood pressure control, and institution of therapy with an ihmiieynyze-incqrzasgb-qxunxf (MILES) inhibitor (if the patient can tolerate it). Urine URINE SPECIMEN / Unknown Non-blood Collection / Unknown 09/13/2023 2:59 PM CDT 09/13/2023 2:59 PM CDT us Va Glez MD LAB - URINE ORDERABLES Final Res ult [facility] LABORATORY [facility] Lab [address] [facility] [address], [address] [place] [address] * HIV Antigen Antibody Combo (07/11/2017 10:26 AM CDT) HIV Antigen Antibody Combo Nonreactive NR^Nonrea ctive 07/12/2017 11:46 AM CDT [facility] Comment:HIV-1 p24 Ag & HIV-1 /HIV-2 Ab Not Detected Blood specimen (specimen) 07/11/2017 10:26 AM CDT 07/11/2017 10:27 AM CDT us Va Glez MD LAB - BLOOD ORDERABLES Final Res ult Performing Organization Address [facility] Co de Phone Number [facility] [address] [place], [place] [id number] [place] [address] * Hepatitis C Screen Reflex to HCV RNA Quant and Genotype (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) Hepatitis C Antibody Nonreactive Assay performance characteristics have not been established for newborns, infants, and children NR [facility] Blood specimen (specimen) 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/2016 8:54 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 Measure of Success: will complete the application with [facility] Strengths: accepting of assistance Patient expressed understanding of goal: yes Action steps to achieve this goal 1. I will answer my phone when [facility]W calls to help me with insurance application. 2. I will provide accurate information and submit it to the [facility]. 3. I will update CCC Team at outreach. HbA1C Not In Goal 04/28/2023 Diabetes Self-Management Edu cation Needed to Optimize Self-Care Behaviors 04/28/2023 Health Maintenance Due or Overdue 12/16/2023 Patient expresses financial resource strain 12/13 Insurance [employer]VANTAGE [employer] ADVANTAGE * Guarantor: Peter Devi Account Type Relation to Patient Date of Phone Billing Address Medication Therapy Self 1960 [address] [id number] [employer] Care Teams Scissors Grinder Relationship Specialty [place] [address] [place] [address] PCP - General Family Practice 07/11/14 [place] [address] [place] [address] Assigned PCP 12/16/11 Christy Campuzano PA-C [address] [place] [address] [id number] Referring Physician Family Medicine 04/22/20 Hans Cannon MD [address] [place] [address] [id number] Resident Pulmonary Disease 04/22/20 Estella Hassan, [facility] [address] [place] [address] Pharmacist Pharmacist 05/26/20 Elaina Moreno MD [address] [place] [address] Cardiovascular & Thoracic Surgery 08/06/20 John Webb MD [address] [id number] Cardiovascular Disease 08/25/21 John Webb MD [address] [id number] Cardiovascular Disease 08/25/21 Estella Hassan, [facility] [address] [place] [address] Assigned MTM Pharmacist 12/09/21 Lindsay Carey OD [address] [place] [address] Ophthalmology 01/29/22 Richard Kam MD [address] [place] [address] Assigned Musculoskeletal Provider 08/14/22 [place] [address] [place] [address] [address] [address] Assigned Neuroscience Provider 01/01/23 Rosemarie Mcdowell, RN Supervisory It Specialist Diabetes Education 03/17/23 Mitra Kendall, TRAFFIC LINE PAINTER Lead Booster Assembler Primary Care - CC 12/12/23 Lizet Mann PA-C [address] [place], [place] [phone] Assigned Cancer Care Provider 01/04/24 Ravi Brownlee MD [address] [facility] [address] [place], [place] [address] Assigned Pulmonology Provider 01/04/24 Nav Hughes MD [address] [facility] [address] [place] [id number] Assigned Heart and Vascular Provider 01/04/24 Manuel Ahn OD [address] [facility] [place] [id number] Medical Practitioners 01/05/24 Arabella Fishman MA Financial Resource Worker 01/06/24 Thalia Charles [facility] Pharmacist Pharmacy 01/26/24
--- OUTSIDE RECORDS SUMMARY | 2024-01-31 20:01 | XMS_ITS | Referral Summary ---
Author Organization [facility] Address [address] [place] [address] Care Team Providers Care Roller Turner Name Role Phone Va Glez MD Primary Care Provider Va Glez MD Unavailable Christy Campuzano PAUniqueC Unavailable Hans Cannon MD Unavailable [phone] Estella Hassan [facility] Unavailable Josh Cordero MD, Madhuri Unavailable [phone] John Webb MD Unavailable [phone] John eWbb MD Unavailable [phone] Estella Hassan [facility] Unavailable Lindsay Carey OD Unavailable Richard Kam MD Unavailable Gaby Vila DO Unavailable Rosemarie Mcdowell RN Unavailable Mitra Kendall PROFESSOR OF SPORT MANAGEMENT Unavailable [phone] Lizet Mann PA-C Unavailable Ravi Brownlee MD Unavailable Nav Hughes MD Unavailable [phone] Manuel Ahn OD Unavailable Arabella Fishman MA Unavailable [phone] Thalia Charles [facility] Unavailable Unavailable Encounters Date Type Department Care Team Description 01/31/2024 [facility] Centralized Scheduling [address] [place] [address] Nasreen Martell Amanda 01/31/2024 4:00 PM HYGIENE COORDINATOR Office Visit [facility] [address] [place] [address] Estella Morales MD Moderate persistent asthma with exacerbation (Primary Dx); Wheezing; Chest pain on breathing 01/30/2024 [facility] Medical Advice [facility] [address] [facility] [address] [place] [address] Thalia Charles RPH 01/30/2024 Travel 01/30/2024 10:30 AM HYGIENE COORDINATOR Office Visit [facility] [address] [address] Kd Nolasco MD Wilson, Thomas G, NESSA TABLE KEEPER Suspected sleep apnea (Primary Dx); Snoring; Excessive daytime sleepiness; Insomnia, unspecified type; Moderate persistent asthma without complication; Morbid obesity with BMI of 40.0-44.9, adult (H) 01/26/2024 [facility] Medical Advice [address] [address] Thalia Charles RPH 01/26/2024 Travel 01/26/2024 7:00 AM HYGIENE COORDINATOR Office Visit [address] [address] Estella Hassan [facility] Type 2 diabetes mellitus without complication, without long-term current use of insulin (H) (Primary Dx); Morbid obesity due to excess calories (H); Major depressive disorder, recurrent episode, moderate (H); LUZ (generalized anxiety disorder) 01/24/[address] [phone] Va Glez MD 01/22/[address] [place] [address] Estella Morales MD Medication Refill 01/19/[address] [place] [address] Estella Morales MD Medication Refill 01/17/[address] [phone] Kerry Bernal, INOCENCIO Patient Request 01/16/2024 My[facility] Medical Advice [address] [phone] Dino Ponce RN 01/16/[address] [phone] Lizet Mann PA-C Results (6MWT) 01/13/2024 MyC Medical Advice [facility] [address] [place] [phone] Claribel Mauricio RN 01/13/2024 2:00 PM CDT Office Visit [address] [phone] Moderate persistent asthma without complication 01/12/2024 Travel 01/12/2024 6:30 PM CDT Ancillary Procedure [facility] [address] 1st [place] [phone] Marian Agustin APRN JOB FORWARDER Mediastinal cyst 01/11/[address] [address] Kd Nolasco MD Medication Refill 01/09/2024 Telephone [facility] [address] [place] [address] [place] [phone] Estella Morales MD 01/09/2024 Telephone [facility] [address] [place] [phone] Kd Nolasco MD Medication Request 01/09/[address] [address] Kerry Bernal, INOCENCIO Patient Request 01/05/[address] [address] Kerry Bernal, INOCENCIO Patient Request (Glucose/CGM ) 01/05/2024 Travel 01/05/2024 2:00 PM CDT Allied Health/Nurse Visit [address] [address] Clinic Care Coordination - Follow-up (Demetria... 01/05/2024 7:30 AM CDT Office Visit [address] [address] Estella Hassan, [facility] Type 2 diabetes mellitus without complication, without long-term current use of insulin (H) (Primary Dx); LUZ (generalized anxiety disorder); Morbid obesity due to excess calories (H); Major depressive disorder, recurrent episode, moderate (H) 01/04/2024 MyC Medical Advice [facility] [address] [facility] [address] [place] [phone] [facility] 01/04/2024 MyC Medical Advice [facility] [address] [place] [address] Claribel Mauricio, INOCENCIO 01/03/[address] [address] Kerry Bernal, INOCENCIO Patient Request 01/02/[address] [address] Estella Morales MD Medication Refill 01/02/[address] [phone] Va Glez MD Same Day Appointment (Pt would like to check and see if anyone can squeeze him in for a same day appt sometime today 01/01) 01/02/2024 Travel 01/02/2024 3:00 PM CDT Office Visit [address] [place] [address] Kd Nolasco MD Somnolence (Primary Dx); Chest discomfort; Subacute cough; Moderate persistent asthma without complication 01/01/[address] [address] Estella Morales MD Medication Refill (Medication refill / albuterol (PROAIR HFA/PROVENTIL HFA/VENTOLIN HFA) 108 (90 Base) MCG/ACT inhaler ) 12/30/[address] [address] Estella Morales MD 12/30/2023 Orders Only [facility] [address] [address] Claribel Mauricio RN Mediastinal cyst (Primary Dx) 12/29/2023 MyC Medical Advice [address] [address] Elaina Moreno MD 12/29/2023 MyC Medical Advice [address] [address] Estella aHssan, [facility] 12/29/2023 MyC Medical Advice [facility] [address] [facility] [address] [place] [phone] Alicja Roldan OT 12/27/2023 Travel 12/27/2023 5:30 PM CDT Office Visit [facility] [address] [place] [phone] Debbie Palaicos PA-C Pharyngitis, unspecified etiology (Primary Dx) 12/26/[address] [address] Kerry Bernal RN Patient Request 12/24/[address] [address] Va Glez MD Results 12/23/2023 Travel 12/23/2023 1:00 PM CDT Office Visit [address] [address] Va Glez MD Encounter for Medicare annual wellness exam (Primary Dx); Type 2 diabetes mellitus without complication, without long-term current use of insulin (H); Moderate persistent asthma without complication; Type 2 diabetes mellitus with hyperglycemia, without long-term current use of insulin (H); LUZ (generalized anxiety disorder); Major depressive disorder, recurrent episode, moderate (H); Gastroesophageal reflux disease without esophagitis; Screening for prostate cancer 12/21/2023 Travel 12/21/2023 2:00 PM CDT Office Visit [facility] [address] [place] [address] [address] [place] [phone] Lizet Mann PA-C Moderate persistent asthma without complication (Primary Dx) 12/18/2023 8:58 AM CDT - 12/18/2023 11:05 AM CDT Emergency [facility] [address] [place] [phone] Aditi Santos MD Mild intermittent asthma with acute exacerbation Discharge Disposition: Home or Self Care 12/16/2023 Telephone [facility] [address] [phone] Ravi Brownlee MD Appointment 12/15/[address] [address] Kerry Bernal RN Patient Request 12/15/2023 Travel 12/15/2023 1:40 PM CDT Office Visit [address] [address] Estella Morales MD Diarrhea, unspecified type (Primary Dx); SOB (shortness of breath); Moderate persistent asthma without complication; Nausea 12/09/[address] [address] Va Glez MD Med Change Request 12/06/2023 Telephone [facility] [address] 4th [place] [phone] Aditi Morales Colonoscopy (Screening) 12/02/[address] [phone] Ravi Brownlee MD Call Back 12/02/[address] [phone] Va Glez MD Prior Auth - Medication (ondansetron (ZOFRAN ODT) 4 MG ODT tab -EPA DENIED) 12/02/[address] [phone] Kerry Bernal RN Patient Request 11/30/[address] [address] Ravi Brownlee MD Refill Request (1. albuterol (PROAIR HFA/PROVENTIL HFA/VENTOLIN HFA) 108 (90 Base) MCG/ACT inhaler /2. albuterol solution /) 11/30/2023 MyC Medical Advice [facility] [address] [place] [phone] Aditi Morales 11/25/[address] [address] Kerry Bernal, INOCENCIO Patient Request (MTM ) 11/25/2023 Travel 11/25/2023 2:30 PM CDT Office Visit [address] [address] Estella Hassan, [facility] Type 2 diabetes mellitus with hyperglycemia, without long-term current use of insulin (H) (Primary Dx); Moderate persistent asthma with exacerbation; Morbid obesity due to excess calories (H) 11/24/2023 Telephone [facility] [address] [phone] Ravi Brownlee MD Medication Question (albuterol (PROAIR HFA/PROVENTIL HFA/VENTOLIN HFA) 108 (90 Base) MCG/ACT inhaler) 11/23/2023 Telephone [facility] [address] [phone] Ravi Brownlee MD Call Back 11/23/[address] [phone] Kerry Bernal, INOCENCIO Patient Request 11/22/[address] [phone] Kerry Bernal, INOCENCIO Patient Request 11/20/2023 Travel 11/20/2023 10:10 AM CDT Office Visit [facility] [place] [address] [place] [address] Linda Hanson APRN TABLE KEEPER Nausea (Primary Dx); Diarrhea, unspecified type; Acute bilateral thoracic back pain; Type 2 diabetes mellitus with hyperglycemia, without long-term current use of insulin (H) 11/18/2023 Refill [facility] [address] [phone] Ravi Brownlee MD Refill Request (ipratropium - albuterol 0.5 mg/2.5 mg/3 mL (DUONEB) 0.5-2.5 (3) MG/3ML neb solution) 11/15/[address] [address] Kerry Bernal RN Patient Request (Coupon for ozempic ) 11/11/2023 Telephone [facility] and [address] [phone] Ravi Brownlee MD Refill Request (ipratropium - albuterol 0.5 mg/2.5 mg/3 mL (DUONEB) 0.5-2.5 (3) MG/3ML neb solution /) 11/11/2023 Travel 11/11/2023 1:30 PM CDT Office Visit [address] [phone] Va Glez MD Acute gastritis without hemorrhage, unspecified gastritis type (Primary Dx); Screen for colon cancer 11/08/2023 Travel 11/08/2023 7:25 PM CDT - 11/08/2023 10:50 PM CDT Emergency [facility] [address] [place] [address] [phone] Garret Drake MD Upper abdominal pain Discharge Disposition: Home or Self Care 11/08/[address] [address] Va Glez MD Medication Problem 11/08/[address] [address] Kerry Bernal, INOCECNIO Refill Request 11/08/[address] [address] Whitney Hood PA-C Medication Refill 11/07/2023 7:00 PM CDT Office Visit [facility] [address] [place] [address] Thu Leyva PA-C RUQ abdominal pain (Primary Dx) 11/06/2023 8:44 PM CDT - 11/07/2023 12:04 AM CDT Emergency [facility] [address] [place] [phone] Vamshi Tobin DO Decreased appetite (Primary Dx); Shortness of breath; Nausea Discharge Disposition: Left Against Medical Advice 11/06/2023 Travel 11/06/[address] [address] Va Glez MD Medication Refill from Last 3 Months Allergies Active Allergy Reactions Criticality Noted Date [...] subcutaneously every 7 days 9 mL 3 024 Active Continuous Glucose Sensor (FREESTYLE ANDRIA 2 SENSOR) MISCIndications :Type 2 diabetes mellitus with hyperglycemia, without long-term current use of insulin (H) INJECT 1 EACH SUBCUTANEOUSLY EVERY 14 DAYS USE 1 SENSOR EVERY 14 DAYS. USE TO READ BLOOD SUGARS PER ELECTRIC GAS APPLIANCES DEMONSTRATOR'S INSTRUCTIONS. 2 each 5 Active metFORMIN (GLUCOPHAGE XR) 500 MG 24 hr tabletIndicatio ns:Type 2 diabetes mellitus without complication, without long-term current use of insulin (H) TAKE 4 TABLETS BY MOUTH DAILY WITH DINNER 360 tablet 1 024 Active sucralfate (CARAFATE) 1 GM tablet Take [...] nasal sprayIndication s:Moderate persistent asthma without complication Barco 1 spray into both nostrils daily. 11.1 [...] to sleep, for Sleep Study 1 tablet 024 Active glipiZIDE (GLUCOTROL XL) 10 MG [...] arm 04/21/2023 Severe persistent asthma, uncomplicated 03/18/19 24 Assessment & Plan (06/13/2023 10:58 AM CDT): [...] (06/23/2020): Added automatically from request for surgery [id number] Thoracic aortic aneurysm wit hout rupture (H) [...] months. Assessment & Plan (01/30/2022 9:05 AM HYGIENE COORDINATOR): Hemoglobin A1C Date Value Ref Range Status [...] 03/26/2016 Assessment & Plan (01/30/2022 9:06 AM HYGIENE COORDINATOR): He would really like to get some of this weight off. Discussed options difficulties of weight loss in the geriatric population which he is approaching. Refer Assessment & Plan (02/12/2019 10:33 AM HYGIENE COORDINATOR): Weight gain of 20 lbs since last office visit Discussed weight programs, weight watchers Arthritis of knee 11/03/2015 Assessment & Plan (06/13/2023 11:02 AM CDT): Scheduled to see Orthopedic with johann, and he had steroid injection in the right knee. Pt to follow up with orthopedic. Moderate persistent asthma without complication 01/27/2015 Assessment & Plan (12/23/2023 1:15 PM CDT): Still not controlled, pt went to purchasing specialist who switched to Formoterol, and BUdesonide nebs daily. Assessment & Plan (01/30/2022 9:07 AM HYGIENE COORDINATOR): He has influenza and asthma. His breathing [...] 06/13/2023 Assessment & Plan (01/30/2022 9:07 AM HYGIENE COORDINATOR): Discussed contagion, positive strokes for immunizations Screen for colon cancer 01/28/202203/2023 Assessment & Plan (01/30/2022 9:05 AM HYGIENE COORDINATOR): Introduced, discussed options Wrist stiffness, right 10/29/202106/12 Pain of right lower leg 01/08/201904/2019 Assessment & Plan (01/08/2019 10:17 AM CDT): [...] 12/19/201310/2013 Moderate persistent asthma 12/19/2013 1 03/29/2014 Immunizations Name Administration Dates Next Due COVID-19 12+ (Pfizer) 12/23/2023,06/13/2023 COVID-19 Bivalent 12+ (Pfizer) 12/25/2021 COVID-19 MONOVALENT 12+ (Pfizer) 02/11/2021,06/12,06/02/2020 COVID-19 Monovalent 12+ (Pfizer 2021) 12/25/2021 ,07/22/2021 Influenza (High Dose) Trival ent,PF (Fluzone) 11/06/2023 Influenza (IIV3) PF 12/03/2017,01/08/2010 Influenza Vaccine 18-64 (Flublok) 11/29/2019, Influenza Vaccine >6 months,quad, PF ,11/07/2021,11/06/2021,2020,12/03/2017,12/24/2016,12/30/2014 Pneumococcal 20 valent Conju gate (Prevnar 20) 05/01/2023 Pneumococcal 23 valent 01/14/2017 RSV Vaccine (Arexvy) 01/25/2023 TD,PF 7+ (Tenivac) 11/23/1999 TDAP Vaccine (Adacel) 01/02/2018 Td (Adult), Adsorbed 07/24/1997 Zoster recombinant adjuvante d (SHINGRIX) 10/11/2021,08/08/2021 Social History Tobacco Use Types Packs/Day Years [...] re latives? Once a week 12/23/2023 Attends [employer] Not on file 12/22 Active Member [...] Answer Date Recorded PHQ-2 Score 2 12/23/2023 [facility] [place] of Occupat ional Health - Occupational Stress [...] Answer Date Recorded Do you have housing? (Denita shaffer is defined as stable permanent housing and does not include staying ouside in a car, in a tent, in an abandoned building, in an overnight retirement, 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.) Yes 12/23/2023 Are you worried [...] on file Legal 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 HYGIENE COORDINATOR Gender Identity Not on file Sexual Orientation Not on file Occupation Industry Job Start Date Job End Date Not on file Not on file Not on file Not on file Last Filed Vital Signs Vital Sign Reading Time Taken Comments Blood Pressure 132/80 01/31/2024 3:29 PM HYGIENE COORDINATOR Pulse 86 01/31/2024 3:29 PM HYGIENE COORDINATOR Temperature 36.4 C (97.6 F) 01/31/2024 3:29 PM HYGIENE COORDINATOR Respiratory Rate 20 01/31/2024 3:29 PM HYGIENE COORDINATOR Oxygen Saturation 94% 01/31/2024 3:29 PM HYGIENE COORDINATOR Inhaled Oxygen Concentration - - Weight 134.2 kg (295 lb 12.8 oz) 01/31/2024 3:29 PM HYGIENE COORDINATOR Height 173 cm (5' 8.11) 01/31/2024 3:29 PM HYGIENE COORDINATOR Body Mass Index 44.83 01/31/2024 3:29 PM HYGIENE COORDINATOR Plan of Treatment Upcoming Encounters Date Type Department Care Team (Late st Contact Info) Description 02/01/2024 3:00 PM HYGIENE COORDINATOR Office Visit [facility] [address] [place] [phone] Manuel Ahn, [address] [place], [place] [address] 02/02/2024 1:30 PM HYGIENE COORDINATOR Therapy Visit [facility] [address] [facility] [address] [place] [phone] Alicja Roldan, OT [address] [place] [address] 02/05/2024 8:00 PM HYGIENE COORDINATOR Therapy Visit [facility] [address] [place] [address] [address] [place] [phone] 02/13/2024 4:30 PM HYGIENE COORDINATOR Oncology Visit [facility] [address] [place] [phone] Marian Agustin APRN JOB FORWARDER [address] [facility] [address] [place], [place] [address] 03/01/2024 7:00 AM HYGIENE COORDINATOR Office Visit [facility] [address] [place] [phone] Estella Hassan, [facility] [address] [place] [address] 03/23/2024 2:00 PM HYGIENE COORDINATOR Office Visit [facility] [address] [place] [address] Lizet Mann PA-C [address] [place] [address] 03/29/2024 3:30 PM HYGIENE COORDINATOR Office Visit [facility] [address] [facility] [address] [place] [phone] Hakeem Chacko MBBS [address] [place] [address] 05/03/2024 3:00 PM HYGIENE COORDINATOR Office Visit [facility] [address] [place] [phone] Gaurav Valenzuela, [employer] SUPERVISOR [address] 7[address] 05/22/2024 10:30 AM CDT Office Visit [address] [phone] Estella HassanCOX BRANSON [address] [place] [address] 05/22/2024 11:30 AM CDT Office Visit [address] [phone] Va Glez MD [address] [place] [phone] Goals Goal Patient Goal Type Associated Problems [...] for health insurance by looking in to [employer] and talking with a FRW. Completed 3. I will look for a new job and will access resources that the [employer] offers. . Sarted new job 4. Continue to use Single [facility] to reduce the cost of my prescriptions. Create an action plan to increase financial stability Care Plan Patient expresses financial resource strain No Josefina Patel Establish Regular Follow-Ups with PCP Care Plan HbA1C Not In Goal No Rosemarie Mcdowell RN Get HbA1C Level in Goal Care Plan HbA1C Not In Goal No Rosemarie Mcdowell RN Understand diabetes pathophysiology and disease progression Care Plan Diabetes Self-Management Education Needed to Optimize Self-Care Behaviors No Rosemarie Mcdowell RN Healthy Eating - follow a healthy eating pattern for diabetes Care Plan Diabetes Self-Management Education Needed to Optimize Self-Care Behaviors No Rosemarie Mcdowell RN Note: Reviewed healthy eating Being Active - get regular physical activity, working up to at least 150 minutes per week Care Plan Diabetes Self-Management Education Needed to Optimize Self-Care Behaviors No Rosemarie Mcdowell RN Monitoring - monitor glucose and ketones as directed Care Plan Diabetes Self-Management Education Needed to Optimize Self-Care Behaviors No Rosemarie Mcdowell RN Taking Medication - patient is consistently taking medications as directed Care Plan Diabetes Self-Management Education Needed to Optimize Self-Care Behaviors No Rosemarie Mcdowell RN Problem Solving - know how to prevent and manage short-term diabetes complications Care Plan Diabetes Self-Management Education Needed to Optimize Self-Care Behaviors No Rosemarie Mcdowell RN Reducing Risks - know how to prevent and treat long-term diabetes complications Care Plan Diabetes Self-Management Education Needed to Optimize Self-Care Behaviors No Rosemarie Mcdowell RN Healthy Coping - use available resources to cope with the challenges of managing diabetes Care Plan Diabetes Self-Management Education Needed to Optimize Self-Care Behaviors No Rosemarie Mcdowell RN Become up-to-date with health maintenance visit(s) Care Plan Health Maintenance Due or Overdue 20%(01/27/20 7:55 AM HYGIENE COORDINATOR) No Mitra Kendall LSW Note: Barriers: Life [...] understand I can contact my clinic with 24/7 after hours services available. I will discuss, review, schedule and complete any recommended overdue health maintenance with my provider/care team. I will continue to outreach to care coordination as needed for additional resources or supports. Create an action plan to increase financial stability Care Plan Patient expresses financial resource strain 20%(01/27/20 24 7:56 AM HYGIENE COORDINATOR) No Mitra Kendall LSW Note: Barriers: Owe back taxes Strengths: I am working, I receive Social Security Disability Patient expressed understanding of goal: Yes Action steps to achieve this goal: 1. I will work with FRW in applying for [facility] 2. I will contact [employer] to ask if they have resources for owing back taxes Procedures Procedure Name Priority Date/Time Associated Diagnosis Comments 6 MINUTE WALK TEST Routine 01/13/2024 2: 31 PM CDT Moderate persistent asthma without complication SD PULMONARY STRESS TEST Routine 01/13/2024 2:31 PM [...] ACTION PLAN Routine 02/11/2021 4: 19 PM HYGIENE COORDINATOR HIV ANTIGEN ANTIBODY COMBO Routine 07/11/2017 10:26 AM CDT Screening for human immunodeficiency virus Special screening for malignant neoplasms, colon Morbid obesity (H) HEPATITIS C SCREEN REFLEX TO HCV RNA QUANT AND GENOTYPE Routine 03/30/2016 8:53 AM HYGIENE COORDINATOR Morbid obesity due to excess calories (H) from Last 3 Months or Most Recently Relevant to Health Maintenance Results * 6 minute walk test (01/13/2024 2:31 PM CDT) 6 min walk (FT) 800 1,202 ft 6 Min Walk (M) 244 366 m Lizet Mann PA-C PFT ORDERABLES Final Result [...] MD This interpretation has been electronically signed: KALYEIGH CASTLE 01/14/2024 12:04:29 PM Lizet Mann PA-C PFT ORDERABLES Final Result [...] fluid similar to previous. LONNIE CAREY MD [facility] Myrna Agustin BEL[employer] AND LINK SHOP SUPERVISOR JOB FORWARDER IMG CT ORDERAB LES Final Result * [...] ORDERABLES Final Res ult Performing Organization Address City/[facility]/ZIP Co de Phone Number [facility] [address] [facility], [address] * TSH with free T4 reflex (01/02/2024 3:44 PM CDT) TSH 1.23 0.30 - 4.20 uIU/mL 01/03/2024 2:38 AM CDT [facility] Blood BLOOD SPECIMEN / Unknown Venipuncture / Unknown 01/02/2024 3:44 PM CDT 01/02/2024 3:44 PM CDT Kd Nolasco MD LAB - BLOOD ORDERABLES Final Res ult Performing Organization Address City/[facility] Co de Phone Number [facility] [address] [facility], [address] * (ABNORMAL) Comprehensive metabolic panel (BMP + [...] BLOOD ORDERABLES Final Res ult [facility] [address] [facility], [address] [place] [address], [facility] * CBC with platelets (01/02/2024 3:44 PM CDT) WBC Count 6.6 4.0 - 11.0 e3/uL 01/02/2024 3:51 PM CDT [facility] RBC [...] BLOOD ORDERABLES Final Res ult [facility] [address] [facility], [address] [place] [address], [facility] * Symptomatic COVID-19 Virus (Coronavirus) by PCR [...] COVID-19. This test was validated by the [facility]. This laboratory is certified under the Clinical Laboratory Improvement Amendments of 1988 (CLIA-88) as qualified to perform high and/or moderate complexity laboratory testing. Debbie Palacios PA-C LAB - MICRO Virtual DBSZAID Final Result [facility] IDD LABORATORY [facility] Inf. Diseases Diag. Lab [address] [facility], [address] [place] [address], [facility] * Streptococcus A Rapid Screen w/Reflex to PCR - Clinic Collect (12/27/2023 5:55 PM CDT) Group A Strep antigen Negative Negative 12/27/2023 6:25 PM CDT AN LABORATORY Swab STRUCTURE OF ANTERIOR PORTION OF NECK / Unknown Non-blood Collection / Unknown 12/27/2023 5:55 PM CDT 12/27/2023 6:17 PM CDT Debbie Palacios PA-C LAB - MICRO GENERAL [employer] (Cuponium)ZAID Final Result AN LABORATORY [facility] [address] (no room number, 1st floor of clinic) [place] [address], [facility] * Group A Streptococcus PCR Throat Swab (12/27/2023 5:55 PM CDT) Group A strep by PCR Not Detected Not Detected 12/28/2023 2:42 PM CDT [facility] IDD LABORATORY Swab STRUCTURE OF ANTERIOR PORTION OF NECK / Unknown Non-blood Collection / Unknown 12/27/2023 5:55 PM CDT 12/27/2023 6:25 PM CDT Narrative [facility] IDD LABORATORY - 12/28/2023 2:42 PM CDT The Xpert Xpress Strep A test, performed on the [employer], is a rapid, qualitative in vitro [...] reaction (PCR) to detect Streptococcus pyogenes DNA. us Debbie Palacios PA-C LAB - MICRO GENERAL ORDE GURPREET Final Result [facility] IDD LABORATORY [facility] Inf. Diseases Diag. Lab [address] [facility], [address] [place] [address] * (ABNORMAL) PSA, screen (12/23/2023 1:51 PM CDT) Prostate Specific Antigen Screen 6.04(H) 0.00 - 4.50 ng/mL 12/23/2023 9:54 PM CDT [facility] LABORATORY Blood BLOOD SPECIMEN / Unknown Venipuncture / Unknown 12/23/2023 1:51 PM CDT 12/23/2023 1:51 PM CDT Narrative [facility] LABORATORY - 12/23/2023 9:54 PM CDT This [...] is needed to diagnose prostate pathology. The [employer] recommends annual examination with digital [...] treatment so they can make informed decisions. us Va Glez MD LAB - BLOOD ORDERABLES Final Res ult [facility] LABORATORY [facility] Core Lab [address] [facility], [address] [place] [address], [facility] * Lipid panel reflex to direct LDL Non-fasting (12/23/2023 1:51 PM CDT) Pathologist [facility] Cholesterol 145 <200 mg/dL 12/23/2023 9:54 PM [...] 219 mg/dL Very High: >= 220 mg/dL Va Glez MD LAB - BLOOD ORDERABLES Final Res ult [facility] LABORATORY [facility] [place] [facility] Lab [address] [facility], [address] [place] [address] * (ABNORMAL) Hemoglobin A1c (12/23/2023 1:51 PM [...] Results consistent with previous, repeat testing unnecessary Va Glez MD LAB - BLOOD ORDERABLES Final Res ult CR LABORATORY [facility] [place] Lab [address] [place] [address] (no room number, 1st floor of clinic) [place] [address], [facility] * EKG 12 lead (12/18/2023 7:55 AM CDT) Only the most recent of3 resultswithin the time period is included. Systolic Blood Pressure mmHg RADIOLOGY RESULTS Diastolic Blood Pressure mmHg RADIOLOGY RESULTS Ventricular Rate 84 BPM RAD IOLOGY RESULTS Atrial Rate 84 BPM RADIOLOG Y RESULTS SD Interval 140 ms RADIOLOG Y RESULTS QRS Duration 90 ms RADIOLO GY RESULTS QT 360 ms RADIOLOGY RESULTS QTc 425 ms RADIOLOGY RESULTS P Jupiter 75 degrees RADIOLOGY RESULTS R AXIS -36 degrees RADIOLOGY RESULTS T Jupiter 48 degrees RADIOLOGY RESULTS Interpretation ECG Sinus rhythm Left axis deviation Inferior infarct , age undetermined Abnormal ECG When compared with ECG of 08-Nov-2023 19:18, No significant change was found Confirmed by - EMERGENCY ROOM, PHYSICIAN ([id number]), industrial editor KATHIA MENA (Brad) on 12/19/2023 6:57:45 AM RADIOLOGY RESULTS 12/18/2023 7:55 AM CDT 12/19/2023 6:57 AM CDT Ti Wang MD ECG ORDERABLES Edited Result - Final RADIOLOGY RESULTS * Influenza A & B Antigen - Clinic Collect (11/20/2023 10:28 AM CDT) Pathologist [facility] Influenza A antigen Negative Negative 11/20/2023 11:00 AM CDT LV LABORATORY Influenza B antigen Negative Negative 11/20/2023 11:00 AM CDT [facility] LAB[facility]ATORY Swab NASAL STRUCTURE / Unknown Non-blood Collection / Unknown 11/20/2023 10:28 AM CDT 11/20/2023 10:38 AM CDT Narrative [facility] LABORATORY - 11/20/2023 11:00 AM CDT Test results must be correlated with clinical data. If necessary, results should be confirmed by a molecular assay or viral culture. Emily Jenkins PA-C LAB - MICRO GENERAL ORDERAB LES Final Result LABORATORY [facility] [address] [place] [address] (no room number, 1st floor of clinic) [place] [address], [facility] * US Abdomen Limited (11/08/2023 9:52 PM CDT) Anatomical Region Laterality Modality Abdomen/Pelvis Ultrasound 11/08/2023 9:52 PM CDT Impressions 11/08/2023 9:58 PM CDT IMPRESSION: 1. Cholelithiasis and gallbladder sludge. Although the gallbladder wall measures slightly thick, no other secondary signs of cholecystitis are evident. 2. Hepatic steatosis and hepatomegaly. Narrative 11/08/2023 9:58 PM CDT EXAM: US ABDOMEN LIMITED LOCATION: [facility] DATE: 11/08/2023 INDICATION: abdominal pain COMPARISON: None. [...] - 11/08/2023 EXAM: US ABDOMEN LIMITED LOCATION: [facility] DATE: 11/08/2023 INDICATION: abdominal pain COMPARISON: None. [...] Hepatic steatosis and hepatomegaly. Garret Drake MD [facility] US ORDERABLES Final R esult * Extra Red Top Tube (11/08/2023 8:00 PM CDT) Only the most recent of2 resultswithin the time period is included. Pathologist [facility] Hold Specimen [facility] 11/08/2023 9:16 PM CDT LABORATORY Blood BLOOD SPECIMEN / Unknown Venipuncture / Unknown 11/08/2023 8:00 PM CDT 11/08/2023 8:05 PM CDT us Garret Drake MD LAB - BLOOD ORDERABLES Fi nal Result RH LABORATORY [facility] Lab [address] Lab (1st floor, no room number) [place] [address], [facility] * CBC with platelets and differential (11/08/2023 8:00 PM CDT) Only the most recent of2 resultswithin the time period is included. WBC Count 6.3 4.0 - 11.0 10e3/uL 11/08/2023 8:16 PM CDT RH LABORATORY RBC Count 4.88 4.40 - 5.90 [...] NRBCs 0.0 10e3/uL 11/08/2023 8:16 PM CDT RH LABORATORY Blood BLOOD SPECIMEN / Unknown Venipuncture / Unknown 11/08/2023 8:00 PM CDT 11/08/2023 8:05 PM CDT Garret Drake MD LAB - BLOOD ORDERABLES Fi nal Result LABORATORY [facility] Lab [address] Lab (1st floor, no room number) [place] [address], [facility] * BNP (11/08/2023 8:00 PM CDT) Only the most recent of2 resultswithin the time period is included. N terminal Pro BNP Inpatient <36 0 - 900 pg/mL 11/08/2023 9:12 PM CDT RH LABORATORY Comment: Reference range shown and results [...] LAB - BLOOD ORDERABLES Fi nal Result [facility] [address] [facility], no room number) [address] * Lipase (11/08/2023 8:00 PM CDT) Pathologist [facility] Lipase 32 13 - 60 U/L 11/08/2023 8:34 PM CDT LABORATORY Blood BLOOD SPECIMEN / Unknown Venipuncture / Unknown 11/08/2023 8:00 PM CDT 11/08/2023 8:05 PM CDT Garret Drake MD LAB - BLOOD ORDERABLES Fi nal Result Performing Organization Address City/[facility]/ZIP Co de Phone Number [facility] [address] [facility] (1st [facility], no room number) [address] * D dimer quantitative (11/08/2023 8:00 PM CDT) D-Dimer Quantitative 0.37 0.00 - 0.50 ug/mL FEU 11/08/2023 8:50 PM CDT LABORATORY Blood BLOOD SPECIMEN / Unknown Venipuncture / Unknown 11/08/2023 8:00 PM CDT 11/08/2023 8:05 PM CDT Narrative RH LABORATORY - 11/08/2023 8:50 PM CDT This [...] 0.01 ug/mL = 0.76 ug/mL (760 ug/L). M Christel et al. Age adjusted D-dimer cut-off levels to rule out pulmonary embolism: The ADJUST-PE Study. BAHMAN 2014;311:9062-9852.; HJ Hellen et al. Diagnostic accuracy of conventional or age adjusted D-dimer cutoff values in older patients with suspected venous thromboembolism. Systemic review and meta-analysis. BMJ 2013:346:f2492. Garret Drake MD LAB - BLOOD ORDERABLES Fi nal Result LABORATORY [facility] Lab [address] [facility] Lab (1st floor, no room number) [place] [address], [facility] * Symptomatic Influenza A/B, RSV, & SARS-CoV2 PCR (COVID-19) Nose (11/06/2023 10:22 PM CDT) Pathologist [facility] Influenza A PCR Negative Negative 11/06/2023 11:05 PM CDT LABORATORY Influenza B PCR Negative Negative 11/06/2023 11:05 PM CDT LABORATORY RSV PCR Negative Negative 11/06/2023 11:05 PM CDT LABORATORY SARS CoV2 PCR Negative Negative 11/06/2023 11:05 PM CDT LABORATORY Comment:NEGATIVE: SARS-CoV-2 (COVID-19) RNA not detected, presumed negative. Swab NASAL STRUCTURE / Unknown Non-blood Collection / Unknown 11/06/2023 10:22 PM CDT 11/06/2023 10:27 PM CDT [facility] LABORATORY - 11/06/2023 11:05 PM CDT Testing was performed using the Xpert Xpress CoV2/Flu/RSV Assay on the [email or web address] GeneXpert Instrument. This test should be ordered [...] management. This test was validated by the [facility]. These laboratories are certified under the Clinical Laboratory Improvement Amendments of 1988 (CLIA-88) as qualified to perfom high complexity laboratory testing. Vamshi Tobin DO LAB - MICRO GENERAL ORDERABLES F inal Result LABORATORY [facility] Lab [address] [facility] Lab (1st floor, no room number) [place] [address], [facility] * (ABNORMAL) UA with Microscopic reflex to Culture (11/06/2023 10:06 PM CDT) Color Urine Yellow Colorless, Straw, Light Yellow, Yellow 11/06/2023 10:22 PM CDT LABORATORY Appearance Urine Clear Clear 11/06/19 24 10:22 PM CDT LABORATORY Glucose Urine 100(A) Negative mg/dL 11/06/2023 10:22 PM CDT LABORATORY Bilirubin Urine Negative Negative 4 10:22 PM CDT LABORATORY Ketones Urine Negative Negative mg/dL 11/06/2023 10:22 PM CDT LABORATORY Specific Roy Urine 1.034 1.003 - 1.035 11/06/2023 10:22 PM CDT LABORATORY Blood Urine Negative Negative 11/06/2023 10:22 PM CDT LABORATORY pH Urine 5.5 5.0 - 7.0 11/06/2023 10:22 PM CDT LABORATORY Protein Albumin Urine 10(A) Negative mg/dL 11/06/2023 10:22 PM CDT RH LABORATORY Urobilinogen Urine Normal Normal, 2.0 mg/dL 11/06/2023 10:22 PM CDT RH LABORATORY Nitrite Urine Negative Negative 11/06/2023 10:22 PM CDT RH LABORATORY Leukocyte Esterase Urine Negative Negative 11/06/2023 10:22 PM CDT RH LABORATORY Mucus Urine Present(A) None Seen /LPF 11/06/2023 10:22 PM CDT RH LABORATORY RBC Urine <1 <=2 /HPF 11/06/2023 10:22 PM CDT RH LABORATORY WBC Urine <1 <=5 /HPF 11/06/2023 10:22 PM CDT RH LABORATORY Squamous Epithelials Urine <1 <=1 /HPF 11/06/2023 10:22 PM CDT LABORATORY Urine MID-STREAM URINE SPECIMEN / Unknown Non-blood Collection / Unknown 11/06/2023 10:06 PM CDT 11/06/2023 10:10 PM CDT Narrative LABORATORY - 11/06/2023 10:22 PM CDT Urine Culture not indicated us Vamshi Yeh DO LAB - URINE ORDERABLES Final Res ult [facility] [address] Lab (1st floor, no room number) [place] [phone] [place] [address] * Extra Blue Top Tube (11/06/2023 8:53 PM CDT) Hold Specimen [facility] 11/06/2023 10:01 PM CDT LABORATORY Blood STRUCTURE OF LEFT UPPER LIMB / Unknown Venipuncture / Unknown 11/06/2023 8:53 PM CDT 11/06/2023 8:58 PM CDT us Vamshi Yeh DO LAB - BLOOD ORDERABLES Final Res ult [facility] Acute Care Lab [address] Lab (1st floor, no room number) [place] [phone] * Hepatic panel (11/06/2023 8:53 PM CDT) Pathologist [facility] Protein Total 7.0 6.4 - 8.3 g/dL [...] - 70 U/L 11/06/2023 10:05 PM CDT LABORATORY Bilirubin Direct <0.20 0.00 - 0.30 mg/dL 11/06/2023 10:05 PM CDT LABORATORY Blood STRUCTURE OF LEFT UPPER LIMB / Unknown Venipuncture / Unknown 11/06/2023 8:53 PM CDT 11/06/2023 8:58 PM CDT us Vamshi Tobin DO LAB - BLOOD ORDERABLES Final Res ult LABORATORY [facility] Lab [address] [facility] Lab (1st floor, no room number) [place] [address], [facility] * (ABNORMAL) Basic metabolic panel (BMP) (11/06/2023 8:53 PM CDT) Pathologist [facility] Sodium 140 135 - 145 mmol/L 11/06/2023 [...] - 1.17 mg/dL 11/06/2023 9:18 PM CDT RH LABORATORY GFR Estimate >90 >60 mL/min/1.7 3m2 11/06/2023 9:18 PM CDT LABORATORY Comment:eGFR calculated usin 2020 CKD-EPI equation. Calcium 9.2 8.8 - [...] PM CDT 11/06/2023 8:58 PM CDT us [place] Yeh DO LAB - BLOOD ORDERABLES Final Res ult LABORATORY [facility] Lab [address] [facility] Lab (1st floor, no room number) [place] [address], [facility] * Albumin Random Urine Quantitative with Creat [...] control, and institution of therapy with an dylrhpyptsu-lmjevmpgnz-ybqqkw (MILES) inhibitor (if the patient can tolerate it). Urine URINE SPECIMEN / Unknown Non-blood Collection / Unknown 09/13/2023 2:59 PM CDT 09/13/2023 2:59 PM CDT Va Glez MD LAB - URINE ORDERABLES Final Res ult [facility]U LABORATORY [facility] Core Lab [address] [facility], [address] * HIV Antigen Antibody Combo (07/11/2017 10:26 AM CDT) HIV Antigen Antibody Combo Nonreactive NR^Nonrea ctive 07/12/2017 11:46 AM CDT [facility] Comment:HIV-1 p24 Ag & HIV-1 /HIV-2 Ab Not Detected Blood specimen (specimen) 07/11/2017 10:26 AM CDT 07/11/2017 10:27 AM CDT Va Glez MD LAB - BLOOD ORDERABLES Final Res ult [address] * Hepatitis C Screen Reflex to HCV RNA Quant and Genotype (03/30/2016 8:53 AM HYGIENE COORDINATOR) Hepatitis C Antibody Nonreactive Assay performance characteristics have not been established for newborns, infants, and children NR [facility] Blood specimen (specimen) 03/30/2016 8:53 AM HYGIENE COORDINATOR 03/30/2016 8:54 AM HYGIENE COORDINATOR us Va Glez MD LAB - BLOOD ORDERABLES Final Res ult [facility] [address] [place] [address] from Last 3 Months or Most Recently [...] and submit it to the [facility]. 3. I will update CCC Team at outreach. HbA1C Not In Goal 04/28/2023 Diabetes Self-Management Edu cation Needed to Optimize Self-Care Behaviors 04/28/2023 Health Maintenance Due or Overdue 12/16/2023 Patient expresses financial resource strain 12/[address] [place] [address] [employer] [address] [employer] [address] * Guarantor: Peter Deiv Account Type Relation to Patient Date of Phone Billing Address Medication Therapy Self [address] [place] [address] [employer] Care Teams Roller Turner Relationship Specialty [place] [address] [place], [place] [phone] PCP - General Family Practice 07/11/14 [place] [address] [place] [address] Assigned PCP 12/16/11 Christy Campuzano PA-C [address] [place] [address] Referring Physician Family Medicine 04/22/20 Hans Cannon MD [address] [place] [address] Resident Pulmonary Disease 04/22/20 Esetlla Hassan, [facility] [address] [place] [address] Pharmacist Pharmacist 05/26/20 Elaina Moreno MD [address] [place] [address] Cardiovascular & Thoracic Surgery 08/06/20 John Webb MD [address] [place] [address] Cardiovascular Disease 08/25/21 John Webb MD [address] [address] Cardiovascular Disease 08/25/21 Estella Hassan, [facility] [address] [place] [address] [phone] Assigned MTM Pharmacist 12/09/21 [place] [address] [place] [address] [place] [address] Ophthalmology 01/29/22 Richard Kam MD [address] [place] [address] [phone] Assigned Musculoskeletal Provider 08/14/22 [place] [address] [place] , [address] [address] Assigned Neuroscience Provider 01/01/23 Rosemarie Mcdowell, RN Php Mysql Developer Diabetes Education 03/17/23 Mitra Kendall, PROFESSOR OF SPORT MANAGEMENT [employer] Coach Primary Care - CC 12/12/23 Lizet Mann PA-C [address] [place] [address] Assigned Cancer Care Provider 01/04/24 Ravi Brownlee MD [address] [facility] [address] [place] [address] Assigned Pulmonology Provider 01/04/24 Nav Hughes MD [address] [facility] [address] [phone] Assigned Heart and Vascular Provider 01/04/24 Manuel Ahn OD [address] [id number] Nibbler Operator 01/05/24 Arabella Fishman MA Financial Resource Worker 01/06/24 Thalia Charles [facility] Pharmacist Pharmacy 01/26/24
--- OUTSIDE RECORDS SUMMARY | 2024-01-31 20:01 | XMS_ITS | Encounter Summary ---
Author Organization [place] Address [address] [place] [address] Care Team Providers Care National Park Ranger Name Role Phone Va Glez MD Primary Care Provider Va Glez MD Unavailable Christy Campuzano PAUniqueC Unavailable Hans Cannon MD Unavailable Estella Hassan [facility] Unavailable [phone] Josh Cordero MD, Madhuri Unavailable [phone] John Webb MD Unavailable John Webb MD Unavailable [phone] Estella Hassan [facility] Unavailable [phone] Lindsay Carey OD Unavailable Richard Kam MD Unavailable Gaby Vila DO Unavailable Rosemarie Mcdowell RN Unavailable [phone] Mitra Kendall STUMP SHOOTER Unavailable Lizet Mann PA-C Unavailable Ravi Brownlee MD Unavailable [phone] Nav Hughes MD Unavailable [phone] Manuel Ahn OD Unavailable Arabella Fishman MA Unavailable [phone] Thalia Charles [facility] Unavailable Unavailable Encounter Details Date Type Department Care Team (Late st Contact Info) Description 01/26/2024 MyC Medical Advice [address] [phone] Thalia Charles [facility] Social History Tobacco Use Types Packs/Day Years Used Date Smoking Tobacco: Former Cigarettes Q uit: 12/03/1983 Passive Smoke Exposure: Past Smokeless Tobacco: Never Alcohol Use Standard Drinks/Week Comments Not Currently 0 (1 standard drink = 0.6 oz pur e alcohol) occ Social Connection and Isolation Panel [NHANES] A nswer Date Recorded Frequency of Communication with Friends and Fami ly Not on file 12/23/2023 How often do you get together with friends or re latives? Once a week 12/23/2023 Attends Orthodox Services Not on file 12/22 Active Member [...] Answer Date Recorded PHQ-2 Score 2 12/23/2023 [facility] [place] of Occupat ional Health - Occupational Stress [...] in an abandoned building, in an overnight long term, 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.) Yes 12/23/2023 Are you worried [...] on file Legal 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 PROBATION AGENT Gender Identity Not on file Sexual Orientation Not on file Occupation Industry Job Start Date Job End Date Not on file Not on file Not on file Not on file documented as of this encounter Miscellaneous Notes * Telephone Encounter - Jos Murillol, [facility] - 01/30/2024 9:14 AM CST Images from the original note were not included. Mikki just checked my blood sugar was 177 how is that that was at 730 am Sumeet Teixeira [facility] Pharmacist Consult (supporting Thalia Charles [facility])1 hour ago (7:24 AM) Jimmy Courtney it's Sumeet Devi how many clicks again for the second Ozempic injection also the paperworkyou sent with me got misplaced any chance to get another copy I could just pick it up at the front facer really need them thanks mikki [facility] resent mikki's recommendations on how to restart Ozempic ; FYi: 177 blood sugar is not too bad --optimum would be <130mg./dl. Alyssa Murillo [facility]. Medication Therapy Management Provider [phone] ATION AGENT documented in this encounter Plan of Treatment Upcoming Encounters Date Type Department Care Team (Late st Contact Info) Description 02/01/2024 3:00 PM PROBATION AGENT Office Visit [facility] [address] [place] [phone] Manuel Ahn, [address] [place] [address] 02/02/2024 1:30 PM PROBATION AGENT Therapy Visit [facility] [address] [facility] [address] [place] [phone] Alicja Roldan, OT [address] [place] [address] 02/05/2024 8:00 PM PROBATION AGENT Therapy Visit [facility] [address] [place] [address] [address] [place] [phone] 02/13/2024 4:30 PM PROBATION AGENT [facility]cology [facility] [address] [place] [phone] Marian Agustin APRN EQUIPMENT PROCESSOR [address] [facility] [address] [place], [place] [phone] 03/01/2024 7:00 AM PROBATION AGENT Office Visit [facility] [address] [place] [phone] Estella Hassan, [place] [id number] [place] [address] 03/23/2024 2:00 PM PROBATION AGENT Office Visit [facility] [address] [place] [phone] Lizet Mann PA-C [address] [place] [address] 03/29/2024 3:30 PM PROBATION AGENT Office Visit [facility] [address] [phone] Hakeem Chacko MBBS [address] [place] [address] 05/03/2024 3:00 PM PROBATION AGENT Office Visit [facility] [address] [place] [phone] Gaurav Valenzuela, NESSA [address] [address] 05/22/2024 10:30 AM CDT Office Visit [address] [phone] Estella Hassan, [address] [address] 05/22/2024 11:30 AM CDT Office Visit [address] [phone] Va Glez MD [address] [place] [address] [phone] documented as of this encounter Goals Goal Patient Goal Type Associated Problems [...] for health insurance by looking in to [employer] and talking with a FRW. Completed 3. I will look for a new job and will access resources that the [employer] offers. . Sarted new job 4. Continue [...] Due or Overdue 20%(01/27/20 24 7:55 AM PROBATION AGENT) No Mitra Kendall LSW Note: Barriers: Life [...] financial resource strain 20%(01/27/20 24 7:56 AM PROBATION AGENT) No Mitra Kendall LSW Note: Barriers: Owe back taxes Strengths: I am working, I receive Social Security Disability Patient expressed understanding of goal: Yes Action steps to achieve this goal: 1. I will work with W in applying for [employer] 2. I will contact [facility] Line to ask if they have resources for owing back taxes documented as of this encounter Visit Diagnoses Not on filedocumented in this encounter Additional Health Concerns Active Problems Noted Date [...] accurate information and submit it to the County. 3. I will update CCC Team at outreach. HbA1C Not In Goal 04/28/2023 Diabetes Self-Management Edu cation Needed to Optimize Self-Care Behaviors 04/28/2023 Health Maintenance Due or Overdue 12/16/2023 Patient expresses financial resource strain 12/13 Assessment Noted Time PHQ-9 Depression Total Score: 9 12/23/19 24 12:36 PM CDT documented as of this encounter Care Teams National Park Ranger Relationship Specialty [place] [address] [place] [address] PCP - General Family Practice 07/11/14 [place] [address] [place] [address] Assigned PCP 12/16/11 Christy Campuzano PA-C [address] [place] [address] [id number] Referring Physician Family Medicine 04/22/20 Hans Cannon MD [address] [place] [address] 356242 Resident Pulmonary Disease 04/22/20 Estella Hassan, [facility] [address] [place] [address] Pharmacist Pharmacist 05/26/20 Elaina Moreno MD [address] [place] [address] [phone] Cardiovascular & Thoracic Surgery 08/06/20 John Webb MD [address] [phone] Cardiovascular Disease 08/25/21 John Webb MD [address] [id number] Cardiovascular Disease 08/25/21 Estella Hassan, [facility] [address] [place] [address] Assigned MTM Pharmacist 12/09/21 Lindsay Carey OD [address] [place] [address] Ophthalmology 01/29/22 Richard Kam MD [address] [place] [address] [phone] Assigned Musculoskeletal Provider 08/14/22 [place] [address] [address] Assigned Neuroscience Provider 01/01/23 Rosemarie Mcdowell, RN Yard Foreman Diabetes Education 03/17/23 Mitra Kendall, STUMP SHOOTER Lead Tack Puller Primary Care - CC 12/12/23 Lizet Mann PA-C [address] [place], [place] [phone] Assigned Cancer Care Provider 01/04/24 Ravi Brownlee MD [address] [facility] [address] [place], [place] [address] Assigned Pulmonology Provider 01/04/24 Nav Hughes MD [address] [facility] [place], [place] [phone] Assigned Heart and Vascular Provider 01/04/24 Manuel Ahn OD [address] [facility] [place] [phone] Plumber Maintenance 01/05/24 Arabella Fishman MA Financial Resource Worker 01/06/24 Thalia Charles [facility] Pharmacist Pharmacy 01/26/24 documented as of this encounter
--- OUTSIDE RECORDS SUMMARY | 2024-01-31 20:01 | XMS_ITS | Encounter Summary ---
Author Organization [facility] Address [address] [place] [address] Care Team Providers Care Razor Sharpener Name Role Phone Va Glez MD Primary Care Provider [phone] Va Glez MD Unavailable Christy Campuzano PAUniqueC Unavailable Hans Cannon MD Unavailable [phone] Estella Hassan [facility] Unavailable Josh Cordero MD, Madhuri Unavailable [phone] John Webb MD Unavailable John Webb MD Unavailable Estella Hassan [facility] Unavailable [phone] Lindsay Carey OD Unavailable Richard Kam MD Unavailable Gaby Vila DO Unavailable Rosemarie Mcdowell RN Unavailable Mitra Kendall SIGNAL PERSON Unavailable [phone] Lizet Mann PA-C Unavailable [phone] Marshall Brownlee MD Unavailable Nav Hughes MD Unavailable [phone] Manuel Ahn OD Unavailable Arabella Fishman MA Unavailable [phone] Allen Charleslla [facility] Unavailable Unavailable Reason for Visit * Reason Comments Sleep Problem Excessive daytime sl eepiness, snoring, restless leg movement, wants to discuss options for better sleeping * Consultation (Priority: 1-2 Weeks) - Pending Review Specialty Diagnoses / Procedures Referred By Mireille gonzalez Referred To Contact Diagnoses Somnolence Kd Nolasco MD [address] [place] [address] Phone: tel: fax: Referral ID Status Reason Start Date Expiration Date V isits Requested Visits Authorized [id number] Pending Review 01/02/2024 01/01/2025 1 1 Encounter Details Date Type Department Care Team (Late st Contact Info) Description 01/30/2024 10:30 AM RESPIRATORY THERAPIST Office Visit [address] [id number] Kd Nolasco MD [address] [place] [address] Gaurav Valenzuela, NESSA [address] [address] Suspected sleep apnea (Primary Dx); Snoring; Excessive daytime sleepiness; Insomnia, unspecified type; Moderate persistent asthma without complication; Morbid obesity with BMI of 40.0-44.9, adult (H) Social History Tobacco Use Types Packs/Day Years [...] re latives? Once a week 12/23/2023 Attends Shinto Services Not on file 12/22 Active Member [...] Answer Date Recorded PHQ-2 Score 2 12/23/2023 [employer] [facility] [employer] - Occupational Stress [...] in an abandoned building, in an overnight [place] [facility], 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.) Yes 12/23/2023 Are you worried [...] on file Legal 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 RESPIRATORY THERAPIST Gender Identity Not on file Sexual Orientation Not on file Occupation Industry Job Start Date Job End Date Not on file Not on file Not on file Not on file documented as of this encounter Last Filed Vital Signs Vital Sign Reading Time Taken Comments Blood Pressure 121/82 01/30/2024 10:00 AM RESPIRATORY THERAPIST Pulse 93 01/30/2024 10:00 AM RESPIRATORY THERAPIST Temperature - - Respiratory Rate 16 01/30/2024 10:0 0 AM RESPIRATORY THERAPIST Oxygen Saturation 90% 01/30/2024 10: 00 AM RESPIRATORY THERAPIST Inhaled Oxygen Concentration - - Weight 131.6 kg (290 lb 3.2 oz) 024 10:00 AM RESPIRATORY THERAPIST Height 175.3 cm (5' 9) 01/30/2024 10:0 0 AM RESPIRATORY THERAPIST Body Mass Index 42.86 01/30/2024 10:00 AM RESPIRATORY THERAPIST documented in this encounter Patient Instructions * Patient Instructions* Gaurav Valenzuela, NESSA STEREO MAP PLOTTER OPERATOR - 01/30/2024 10:30 AM RESPIRATORY THERAPIST Images from the original note were not included. Sleep hygiene guidelines Recommendation Details Regular bedtime and rise time Having a consistent bedtime and rise time leads to more regular sleepschedules and avoids periods of sleep deprivation or periods of extended wakefulness during the night. Avoid napping Avoid napping, especially naps lasting longer than 1 hour and naps late in the day. Limit caffeine Avoid caffeine after lunch. The time between lunch and bedtime represents approximately 2 half-lives for caffeine, and this time window allows for most caffeine to be metabolized before bedtime. Limit alcohol Recommendations are typically focused on avoiding alcohol near bedtime. Alcohol is initially sedating, but activating as it is metabolized. Alcohol also negatively impacts sleep architecture. Avoid nicotine Nicotine is a stimulant and should be avoided near bedtime and at night. Exercise Daytime physical activity is encouraged, in particular, 4 to 6 hours before bedtime, as this may facilitate sleep onset. Rigorous exercise within 2 hours of bedtime is discouraged. Keep the sleep environment quiet and dark Noise and light exposure during the night can disrupt sleep. White noise or ear plugs are often recommended to reduce noise. Using blackout shades or an eye mask is commonly recommended to reduce light. This may also include avoiding exposure to television or technology near bedtime, as this can have an impact on circadian rhythms by shifting sleep timing later. Bedroom clock Avoid checking the time at night. This includes alarm clocks and other time pieces (eg, watches and smart phones). Checking the time increases cognitive arousal and prolongs wakefulness. Evening eating Avoid a large meal close to bedtime. Eat a healthy and filling (but not too heavy) meal in the early evening and avoid late-night snacks. MY TREATMENT INFORMATION FOR SLEEP APNEA- Peter Olvera DOCTOR : Gaurav Valenzuela APRN STEREO MAP PLOTTER OPERATOR Am I having a sleep study at a sleep center? --->Due to normal delays, you will be contacted within 2-4 weeks to schedule Am I having a home sleep study? --->Watch the video for the device you are using: -waterproofing supervisor/drop off device- https://www.[employer].com/watch?v=yGGFBdELGhk -Disposable device sent out require phone/computer application- https://www.Where[employer].com/watch?v=BCce_vbiwxE Frequently asked questions: 1. What is Obstructive Sleep Apnea (MONAE)? MONAE is the most common type of sleep apnea. Apnea means, without breath. Apnea is most often caused by narrowing or collapse of the upper airway as musclesrelax during sleep. Almost everyone has occasional apneas. Most people with sleep apnea have had brief interruptions atnight frequently for many years. The severity of sleep apnea is related to how frequent and severe the events are. 2. What are the consequences of MONAE? Symptoms include: feeling sleepy during the day, snoring loudly, gasping or stopping of breathing, trouble sleeping, and occasionally morning headaches or heartburn at night. Sleepiness can be serious and even increase the risk of falling asleep while driving. Other health consequences may include development of high blood pressure and other cardiovascular disease in persons who are susceptible. Untreated MONAE can contribute to heart disease, stroke and diabetes. 3. What are the treatment options? In most situations, sleep apnea is a lifelong disease that must be managed with daily therapy. Medications are not effective for sleep apnea and surgery is generally not considered until other therapies have been tried. Your treatment is your choice . Continuous Positive Airway (CPAP) works right away and is the therapy that is effective in nearly everyone. An oral device to hold your jaw forward is usually the next most reliable option. Other options include postioning devices (to keep you off your back), weight loss, and surgery including a tongue pacing device. There is more detail about some of these options below. 4. Are my sleep studies covered by insurance? Although we will request verification of coverage, weadvise you also check in advance of the study to ensure there is coverage. Important tips for those choosing CPAP and similar devices REMEMBER-IF YOU RECEIVE A CALL FROM [phone]-->IT IS TO SETUP A DEVICE For new devices, sign up for device CLEMENT to monitor your device for your followup visits We encourage you to utilize the [employer] clement or website ( https://[employer].SendMe/ ) to monitor your therapy progress and share the data with your healthcare team when you discuss your sleep apnea. Know your equipment: CPAP is continuous positive airway pressure that prevents obstructive sleep apnea by keeping the throat from collapsing while you are sleeping. In most cases, the device is ???smart?? and can slowlyself-adjusts if your throat collapses and keeps a record every day of how well you are treated-this information is available to you and your care team. BPAP is bilevel positive airway pressure that keeps your throat open and also assists each breath with a pressure boost to maintain adequate breathing. Special kinds of BPAP are used in patients who have inadequate breathing from lung or heart disease. In most cases, the device is ???smart?? and can slowly self-adjusts to assist breathing. Like CPAP, the device keeps a record of how well you aretreated. Your mask is your connection to the device. You get to choose what feels most comfortable and the staff will help to make sure if fits. Here: are some examples of the different masks that are available: Magnetic mask aids may assist with use but there are safety issues that should be addressed when considering with magnets* ( see end of discussion). Chau points to remember on your journey with sleep apnea: Sleep study. PAP devices often need to be adjusted during a sleep study to show that they are effective and adjusted right. Good tips to remember: Try wearing just the mask during a quiet time during the day so your body adapts to wearing it. A humidifier is recommended for comfort in most cases to prevent drying of your nose and throat. Allergy medication from your provider may help you if you are having nasal congestion. Getting settled-in. It takes more than one night for most of us to get used to wearing a mask. Try wearing just the mask during a quiet time during the day so your body adapts to wearing it. A humidifier is recommended for comfort in most cases. Our team will work with you carefully on the first day and will be in contact within 4 days and again at 2 and 4 weeks for advice and remote device adjustments. Your therapy is evaluated by the device each day. Use it every night. The more you are able to sleep naturally for 7-8 hours, the more likely you will have good sleep and to prevent health risks or symptoms from sleep apnea. Even if you use it 4 hours it helps. Occasionally all of us are unable to use a medical therapy, in sleep apnea, it is not dangerous to miss one night. Communicate. Call our skilled team on the number provided on the first day if your visit for problems that make it difficult to wear the device. Over 2 out of 3 patients can learn to wear the device long-term with help from our team. Remember to call our team or your sleep providers if you are unable to wear the device as we may have other solutions for those who cannot adapt to mask CPAP therapy. It is recommended that you sleep your sleep provider within the first 3 months and yearly after that if you are not having problems. Use it for your health. We encourage use of CPAP masks during daytime quiet periods to allow your face and brain to adapt to the sensation of CPAP so that it will be a more natural sensation to awaken to at night or during naps. This can be very useful during the first few weeks or months of adapting to CPAP though it does not help medically to wear CPAP during wakefulness and should not be used as a strategy just to meet guidelines. Take care of your equipment. Make sure you clean your mask and tubing using directions every day and that your filter and mask are replaced as recommended or if they are not working. *Masks with magnets: Updated Contraindications Masks with magnetic components are contraindicated for use by patients where they, or anyone in close physical contact while using the mask, have the following: Active medical implants that interact with magnets (i.e., pacemakers, implantable cardioverter defibrillators (ICD), neurostimulators, cerebrospinal fluid (CSF) shunts, insulin/infusion pumps) Metallic implants/objects containing ferromagnetic material (i.e., aneurysm clips/flow disruption devices, embolic coils, stents, valves, electrodes, implants to restore hearing or balance with implanted magnets, ocular implants, metallic splinters in the eye) Updated Warning Keep the mask magnets at a safe distance of at least 6 inches (150 mm) away from implants or medical devices that may be adversely affected by magnetic interference. This warning applies to you or anyone in close physical contact with your mask. The magnets are in the frame and lower headgear clips, with a magnetic field strength of up to 400mT. When worn, they connect to secure the mask but may inadvertently detach while asleep. Implants/medical devices, including those listed within contraindications, may be adversely affected if they change function under external magnetic cohen or contain ferromagnetic materials that attract/repel to magnetic cohen (some metallic implants, e.g., contact lenses with metal, dental implants, metallic cranial plates, screws, radha hole covers, and bone substitute devices). Consult your physician and hospitality intern of your implant / other medical education coordinator for information on the potential adverse effects of magnetic cohen. BESIDES CPAP, WHAT OTHER THERAPIES ARE THERE? Positioning Device Positioning devices are generally used when sleep apnea is mild and only occurs on your back.This example shows a pillow that straps around the waist. It may be appropriate for those whose sleep study shows milder sleep apnea that occurs primarily when lying flat on one's back. Preliminary studies have shown benefit but effectiveness at home may need to be verified by a home sleep test. These devices are generally not covered by medical insurance. Examples of devices that maintain sleeping on the back to prevent snoring and mild sleep apnea. Belt type body positioner http://[employer].Us/ Electronic reminder http://nightshifttherapy.com/ Oral Appliance What is oral appliance therapy? An oral appliance device fits on your teeth at night like a retainer used after having braces. The device is made by a specialized dentist and requires several visits over 1-2 months before a manufactured device is made to fit your teeth and is adjusted to prevent your sleep apnea. Once an oral device is working properly, snoring should be improved. A home sleep test may be recommended at that time if to determine whether the sleep apnea is adequately treated. Some things to remember: -Oral devices are often, but not always, covered by your medical insurance. Be sure to check with your insurance provider. -If you are referred for oral therapy, you will be given a list of specialized dentists to consideror you may choose to visit the Web site of the [place] [employer] -Oral devices are less likely to work if you have severe sleep apnea or are extremely overweight. More detailed information An oral appliance is a small acrylic device that fits over the upper and lower teeth (similar to a retainer or a mouth guard). This device slightly moves jaw forward, which moves the base of the tongue forward, opens the airway, improves breathing for effective treat snoring and obstructive sleep apnea in perhaps 7 out of 10 people . The best working devices are custom-made by a dental device hospitality intern after a mold is made of the teeth 1, 2, 3. When is an oral appliance indicated? Oral appliance therapy is recommended as a first-line treatment for patients with primary snoring, mild sleep apnea, and for patients with moderate sleep apnea who prefer appliance therapy to use of CPAP4, 5. Severity of sleep apnea is determined by sleep testing and is based on the number of respiratory events per hour of sleep. How successful is oral appliance therapy? The success rate of oral appliance therapy in patients with mild sleep apnea is 75-80% while in patients with moderate sleep apnea it is 50-70%. The chance of success in patients with severe sleep apnea is 40-50%. The research also shows that oral appliances have a beneficial effect on the cardiovascular health of MONAE patients at the same magnitude as CPAP therapy7. Oral appliances should be a second-line treatment in cases of severe sleep apnea, but if not completely successful then a combination therapy utilizing CPAP plus oral appliance therapy may be effective. Oral appliances tend to be effective in a broad range of patients although studies show that thepatients who have the highest success are females, younger patients, those with milder disease, andless severe obesity. 3, 6. Finding a dentist that practices dental sleep medicine Specific training is available through the [place] [employer] for dentists interested in working in the field of sleep. To find a dentist who is educated in the field of sleep and the use of oral appliances, near you, visit the Web site of the [place] [employer]. References 1. Tierney et al. Objectively measured vs self-reported compliance during oral appliance therapy for sleep-disordered breathing. Chest 2013; 144(5): 6294-8900. 2. [place], et al. Objective measurement of compliance during oral appliance therapy for sleep-disordered breathing. Thorax 2013; 68(1): 91-96. 3. Charmaine, et al. Mandibular advancement devices in 620 men and women with MONAE and snoring: tolerability and predictors of treatment success. Chest 2004; 125: 9170-5831. 4. Lisha, et al. Oral appliances for snoring and MONAE: a review. Sleep 2006; 29: 244-262. 5. Kandi et al. Oral appliance treatment for MONAE: an update. J Clin Sleep Med 2014; 10(2): 215-227. 6. Roxanne et al. Predictors of OSAH treatment outcome. J [place] Res 2007; 86: 5048-3598. Weight Loss: Your Body mass index is 42.86 kg/m??. Being overweight does not necessarily mean you will have health consequences. Those who have BMI over 35 or over 27 with existing medical conditions carries greater risk. Weight loss decreases severity of sleep apnea in most people with obesity. For those with mild obesity who have developed snoring with weight gain, even 15-30 pound weight loss can improve and occasionally milder eliminate sleep apnea. Structured and life-long dietary and health habits are necessary to lose weight and keep healthier weight levels. The Comprehensive Weight loss program offers all aspects of weight loss strategies including two Non-Surgical Weight Loss Programs: Medical Weight Management and our 24 Week Healthy Lifestyle Program: Medical Weight Management: You will meet with a Medical Weight Management Provider, as well as a Event Security Officer. The program may include medication therapy, dietary education, recommended exercise and physical therapy programs, monthly support group meetings, and possible psychological counseling. Follow up visits with the provider or rn mental health are scheduled based on your progress and needs. 24 Week Healthy Lifestyle Program: This unique program is designed to give you the support of weekly appointments and activities thru a 24-week period. It may include all of the components of the basic program (above), with the addition of 11 individual Health Technical Communicator Visits, 24-week access to the [employer] website for over 700 online classes, and monthly support group meetings. This program has an [id number]-bo-[id number] expense of $499 to cover the items that can not be billed to insurance (health coaches and [employer] access), and is non-refundable/non-transferable (you may be able to use a Health Savings Account; ask your [facility] provider). There may be an optional meal replacement plan prescribed as well. Surgical management achieves meaningful long-term weight loss and improvement in health risks in most patients with more severe obesity. Sleep Apnea Surgery: Surgery for obstructive sleep apnea is considered generally only when other therapies fail to work.Surgery may be discussed with you if you are having a difficult time tolerating CPAP and or when there is an abnormal structure that requires surgical correction. Nose and throat surgeries often enlarge the airway to prevent collapse. Most of these surgeries create pain for 1-2 weeks and up to halfof the most common surgeries are not effective throughout life. You should carefully discuss the benefits and drawbacks to surgery with your sleep provider and surgeon to determine if it is the best solution for you. More information Surgery for MONAE is directed at areas that are responsible for narrowing or complete obstruction of the airway during sleep. There are a wide range of procedures available to enlarge and/or stabilize the airway to prevent blockage of breathing in the three major areas where it can occur: the palate,tongue, and nasal regions. Successful surgical treatment depends on the accurate identification of the factors responsible for obstructive sleep apnea in each person. A personalized approach is required because there is no single treatment that works well for everyone. Because of anatomic variation, consultation with an examination by a sleep surgeon is a critical first step in determining what surgical options are best for each patient. In some cases, examination during sedation may be recommended in order to guide the selection of procedures. Patients will be counseled about risks and benefits as well as the typical recovery course after surgery. Surgery is typically not a cure for a person???s MONAE. However, surgery will often significantly improve one???s MONAE severity (termed ???success rate?? ). Even in the absence of a cure, surgery will decrease the cardiovascular risk associated with OSA7; improve overall quality of life8 (sleepiness, functionality, sleep quality, etc). Palate Procedures: Patients with MONAE often have narrowing of their airway in the region of their tonsils and uvula. The goals of palate procedures are to widen the airway in this region as well as to help the tissues resist collapse. Modern palate procedure techniques focus on tissue conservation and soft tissue rearrangement, rather than tissue removal. Often the uvula is preserved in this procedure. Residual sleep apnea is common in patient after pharyngoplasty with an average reduction in sleep apnea events of33%2. Tongue Procedures: ExamWhile patients are awake, the muscles that surround the throat are active and keep this region open for breathing. These muscles relax during sleep, allowing the tongue and other structures to collapse and block breathing. There are several different tongue procedures available. Selection of a tongue base procedure depends on characteristics seen on physical exam. Generally, procedures are aimed at removing bulky tissues in this area or preventing the back of the tongue from falling back during sleep. Success rates for tongue surgery range from 50-62%3. Hypoglossal Nerve Stimulation: Hypoglossal nerve stimulation has recently received approval from the [place] Food and Drug Administration for the treatment of obstructive sleep apnea. This is based on research showing that the system was safe and effective in treating sleep apnea6. Results showed that the median AHI score decreased 68%, from 29.3 to 9.0. This therapy uses an implant system that senses breathing patterns and delivers mild stimulation to airway muscles, which keeps the airway open during sleep. The system consists of three fully implanted components: a small generator (similar in size to a pacemaker), a breathing sensor, and a stimulation lead. Using a small handheld remote, a patient turns the therapy on before bed and off upon awakening. Candidates for this device must be greater than 18 years of age, have moderate to severe obstructive sleep apnea with less than 25% central events (AHI between 15-65), BMI less than 35, have tried CPAP/oral appliance for at least 8 weeks without success, and have appropriate upper airway anatomy (determined by a sleep endoscopy performed by Dr. Joel Lloyd or Dr. Moy Oreilly). Nasal Procedures: Nasal obstruction can interfere with nasal breathing during the day and night. Studies have shown that relief of nasal obstruction can improve the ability of some patients to tolerate positive airway pressure therapy for obstructive sleep apnea1. Treatment options include medications such as nasalsaline, topical corticosteroid and antihistamine sprays, and oral medications such as antihistamines or decongestants. Non-surgical treatments can include external nasal dilators for selected patients. If these are not successful by themselves, surgery can improve the nasal airway either alone or in combination with these other options. Combination Procedures: Combination of surgical procedures and other treatments may be recommended, particularly if patients have more than one area of narrowing or persistent positional disease. The success rate of combination surgery ranges from 66-80%2,3. References Torey Tyson. The Role of the Nose in Snoring and Obstructive Sleep Apnoea: An Update. Eur Arch Otorhinolaryngol. 2011; 268: 1365-73. Carlos SM; Vik JA; Robe JR; Madiha JF; Alcira MB; Smita SG; Myrna SULLIVAN. Surgical modifications of the upper airway for obstructive sleep apnea in adults: a systematic review and meta-analysis. SLEEP 2010;33(10):0702-0920. Candace Tirado. Hypopharyngeal surgery in obstructive sleep apnea: an evidence-based medicine review. Arch Otolaryngol Head Neck Surg. 2005;132(2):206-13. Yousif YH1, Kofi Y, Paresh COURTNEY. The efficacy of anatomically based multilevel surgery for obstructive sleep apnea. Otolaryngol Head Neck Surg. 2003 Dec;129(4):327-35. Cyrus Mejia. Hypopharyngeal Surgery in Obstructive Sleep Apnea: An Evidence-Based Medicine Review. Arch Otolaryngol Head Neck Surg. 2005;132(2):206-13. Fatuma VOSS et al. Upper-Airway Stimulation for Obstructive Sleep Apnea. N Engl J Med. 2014 Mar 22;370(2):139-49. Josefina Y et al. Increased Incidence of Cardiovascular Disease in Middle-aged Men with Obstructive Sleep Apnea. Am J Respir Crit Care Med; 2002 166: 159-165 Martínez EM et al. Studying Life Effects and Effectiveness of Palatopharyngoplasty (SLEEP) study: Subjective Outcomes of Isolated Uvulopalatopharyngoplasty. Otolaryngol Head Neck Surg. 2011; 144: 623-631. WHAT IF I ONLY HAVE SNORING? Mandibular advancement devices, lateral sleep positioning, long-term weight loss and treatment of nasal allergies have been shown to improve snoring. Exercising tongue muscles with a game (https://Thrive Solo.FathomDB/Bloominous/clement/qqqewzt-mcgfja-kkwgcmg/cn9945124929) or stimulating the tongue during the day with a device (https://doi.org/10.3390/zcv51860254) have improved snoring in some individuals. https://www.The Sea App.Virtual Goods Market/ https://www.sleepfoundation.org/cslp-weye-uqtnjhj-hgdpizyvawp-mvw-ggnowtstcgw Remember to Drive Safe... Drive Alive Sleep health profoundly affects your health, mood, and your safety. Thirty three percent of the population (one in three of us) is not getting enough sleep and many have a sleep disorder. Not gettingenough sleep or having an untreated / undertreated sleep condition may make us sleepy without even knowing it. In fact, our driving could be dramatically impaired due to our sleep health. As your provider, here are some things I would like you to know about driving: Here are some warning signs for impairment and dangerous drowsy driving: -Having been awake more than 16 hours -Looking tired -Eyelid drooping -Head nodding (it could be too late at this point) -Driving for more than 30 minutes Some things you could do to make the driving safer if you are experiencing some drowsiness: -Stop driving and rest -Call for transportation -Make sure your sleep disorder is adequately treated Some things that have been shown NOT to work when experiencing drowsiness while driving: -Turning on the radio -Opening windows -Eating any ???distracting?? / ???entertaining?? foods (e.g., sunflower seeds, candy, or any other) -Talking on the phone Your decision may not only impact your life, but also the life of others. Please, remember to drivesafe for yourself and all of us. IRATORY THERAPIST documented in this encounter Progress Notes * Gaurav Valenzuela APRN CNP - 01/30/2024 10:30 AM CST Images from the original note were not included. Outpatient Sleep Medicine Consultation: Name: Peter Olvera Age: [age] year old Date of : 1960 Date of Consultation: January 30, 2024 Consultation is requested by: [place] [address] Kd Nolasco Primary care provider: Va Glez Reason for Sleep Consult: Peter Olvera is sent by Kd Nolasco for a sleep consultation regarding snoring, daytime somnolence, possible MONAE. Patient???s Reason for visit Peter Olvera main reason for visit: (Patient-Rptd) my care team thinks my sleep habits can be affecting my other health issues Patient states problem(s) started: (Patient-Rptd) about 2 years ago Peter Olvera's goals for this visit: (Patient-Rptd) get better sleep habits so i can get healthier Assessment and Plan: Summary Sleep Diagnoses: 1. Suspected sleep apnea (Primary) 2. Snoring 3. Excessive daytime sleepiness 4. Insomnia, unspecified type 5. Moderate persistent asthma without complication 6. Morbid obesity with BMI of 40.0-44.9, adult (H) - Adult Sleep Eval & Management Referral - Comprehensive Sleep Study; Future - zolpidem (AMBIEN) 10 MG tablet; Take tablet by mouth 15 minutes prior to sleep, for Sleep Study Dispense: 1 tablet; Refill: 0 Comorbid Diagnoses: DM2 History of thoracic aortic aneurysm MDD LUZ GERD History of mediastinal mass Bilateral low back pain Summary Recommendations: Recommend further evaluation with diagnostic in-lab split-night polysomnography (PSG) for possible sleep disordered breathing. He has a high pretest probability of MONAE with symptoms of snoring, occasional difficulty falling/staying asleep, excessive daytime sleepiness, morning nasal stuffiness, getting up to urinate more than once, and occasional non-restorative sleep for the last 2 years or so. His STOP-BANG score is 5-6 today which suggest a high risk of MONAE. His symptoms are consistent with possible obstructive sleep apnea. We discussed the pathophysiology of obstructive sleep apnea and the risks associated with untreatedOSA. We also discussed the pros and cons of in lab polysomnography versus home sleep testing. The patient has elected to undergo in lab polysomnography (PSG) to further evaluate his symptoms of possible obstructive sleep apnea. All potential therapeutic options including positive airway pressure, mandibular advancing oral appliances, positional therapy, and surgical options were discussed. Also counseled about impact of weight loss on MONAE. His insomnia severity index is 14 today which is consistent with mild severity clinical insomnia. This appears to be multifactorial and is associated with elements of poor sleep hygiene, irregularities in sleep schedule both bedtime/wake time, anxiety, and active mind at bedtime or upon awakening, life stressors, back pain, and likely sleep disordered breathing contributing. A Rx for zolpidem 10 mg p.o. nightly x 1 for the night of the sleep study was sent to the patient's pharmacy today. He was instructed to bring this with him on the night of the sleep study. Additionally, we briefly discussed the sleep hygiene guidelines and information was provided in the AVS for his review. Of note, the patient indicates that he has scheduled a visit with a mental health therapist and meets with her tonight regarding marriage issues and depression/anxiety. Follow-up in approximately 3 months to review sleep study results and to determine next steps. Orders Placed This Encounter Procedures Comprehensive Sleep Study Summary Counseling: Sleep Testing Reviewed Obstructive Sleep Apnea Reviewed Complications of Untreated Sleep Apnea Reviewed Previous recent chart notes, lab, imaging, PFT, cardiology results reviewed Medical Decision-making: Educational materials provided in instructions Total time spent reviewing medical records, history and physical examination, review of previous testing and interpretation as well as documentation on this date: 60 minutes CC: Kd Nolasco History of Present Illness: Peter Olvera is a 63-year-old male with a PMH significant for asthma, DM 2, history of thoracicaortic aneurysm, major depression, anxiety, GERD, history of a mediastinal mass (right paratrachealelliptical cystic mass), bilateral low back pain, and morbid obesity who presents today with symptoms of snoring, occasional difficulty falling/staying asleep, excessive daytime sleepiness, morning nasal stuffiness, getting up to urinate more than once, and occasional non-restorative sleep for the last 2 years or so. 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 He was referred by his internal medicine provider for further evaluation of daytime somnolence. Past Sleep Evaluations: No SLEEP-WAKE SCHEDULE: Work/School Days: Patient goes to school/work: (Patient-Rptd) Yes Usually gets into bed at (Patient-Rptd) 10 or 11pm sometimes later Takes patient about (Patient-Rptd) dependds how tired i am to fall asleep Has trouble falling asleep (Patient-Rptd) usually dont but sometimes nights per week Wakes up in the middle of the night (Patient-Rptd) [id number] times. Wakes up due to (Patient-Rptd) External stimuli (bed partner, pets, noise, etc);Uncertain He has trouble falling back asleep times a week. It usually takes to get back to sleep Patient is usually up at (Patient-Rptd) between 5and 6am Uses alarm: (Patient-Rptd) Yes Weekends/Non-work Days/All Other Days: Usually gets into bed at (Patient-Rptd) 3or 4 am or later Takes patient about (Patient-Rptd) again depends how tired i am to fall asleep Patient is usually up at (Patient-Rptd) between 530and 6am Uses alarm: (Patient-Rptd) Yes Sleep Need Patient gets (Patient-Rptd) between 5 and 6 hours sleep on average Patient thinks he needs about (Patient-Rptd) 5 to 8 hours but under a lot of stress at home sleep Peter Olvera prefers to sleep in this position(s): (Patient-Rptd) Back;Side Patient states they do the following activities in bed: (Patient-Rptd) Watch TV;Use phone, computer, or tablet Naps Patient takes a purposeful nap (Patient-Rptd) depends if i need one times a week and naps are usually (Patient-Rptd) dpends usually an hour in duration He feels better after a nap: (Patient-Rptd) Yes He dozes off unintentionally (Patient-Rptd) a lot days per week Patient has had a driving accident or near-miss due to sleepiness/drowsiness: (Patient-Rptd) No SLEEP DISRUPTIONS: Breathing/Snoring Patient snores:(Patient-Rptd) Yes Other people complain about his snoring: (Patient-Rptd) Yes Patient has been told he stops breathing in his sleep:(Patient-Rptd) No He has issues with the following: (Patient-Rptd) Morning mouth dryness;Stuffy nose when you wake up;Getting up to urinate more than once Movement: Patient gets pain, discomfort, with an urge to move: (Patient-Rptd) Yes It happens when he is resting: (Patient-Rptd) Yes It happens more at night: (Patient-Rptd) Yes Patient has been told he kicks his legs at night: (Patient-Rptd) No Behaviors in Sleep: Peter Olvera has experienced the following behaviors while sleeping: (Patient-Rptd) See or hearthings that are not really there upon awakening or just falling asleep He has experienced sudden muscle weakness during the day: (Patient-Rptd) Yes Is there anything else you would like your sleep provider to know: (Patient- Rptd) no i cant think of anything right now CAFFEINE AND OTHER SUBSTANCES: Patient consumes caffeinated beverages per day: (Patient-Rptd) 2 or 3 sometimes more Last caffeine use is usually: List of any prescribed or over the counter stimulants that patient takes: (Patient-Rptd) not takinganything List of any prescribed or over the counter sleep medication patient takes: (Patient-Rptd) dont takeany List of previous sleep medications that patient has tried: (Patient-Rptd) cant remember Patient drinks alcohol to help them sleep: (Patient-Rptd) No Patient drinks alcohol near bedtime: (Patient-Rptd) No Family History: Patient has a family member been diagnosed with a sleep disorder: (Patient-Rptd) No SCALES: EPWORTH SLEEPINESS SCALE 01/30/2024 10:27 AM [place] Sleepiness Scale ( Rain Posey
ESS - [place] - Final version - Jan 18 - [facility] Research [place].) Sitting and reading Moderate chance of dozing Watching TV Moderate chance of dozing Sitting, inactive in a public place (e.g. a theatre or a meeting) Slight chance of dozing As a passenger in a car for an hour without a break Moderate chance of dozing Lying down to rest in the afternoon when circumstances permit Slight chance of dozing Sitting and talking to someone Slight chance of dozing Sitting quietly after a lunch without alcohol Slight chance of dozing In a car, while stopped for a few minutes in traffic Slight chance of dozing [place] Score (MC) 11 [place] Score (Sleep) 11 Patient-reported INSOMNIA SEVERITY INDEX (ALFREDO) ?? 01/30/2024 9:58 AM Insomnia Severity Index (ALFREDO) Difficulty falling asleep 2 Difficulty staying asleep 1 Problems waking up too early 2 How SATISFIED/DISSATISFIED are you with your CURRENT sleep pattern? 2 How NOTICEABLE to others do you think your sleep problem is in terms of impairing the quality of your life? 2 How WORRIED/DISTRESSED are you about your current sleep problem? 2 To what extent do you consider your sleep problem to INTERFERE with your daily functioning (e.g. daytime fatigue, mood, ability to function at work/daily chores, concentration, memory, mood, etc.) CURRENTLY? 3 ALFREDO Total Score 14 Patient-reported Guidelines for Scoring/Interpretation: Total score categories: 0-7 = No clinically significant insomnia 8-14 = Subthreshold insomnia 15-21 = Clinical insomnia (moderate severity) 22-28 = Clinical insomnia (severe) Used via courtesy of www.Climber.com.GI-View.gov with permission from Trey Braahona PhD., Universit?? [facility] STOP BANG score: 5-6 01/30/2024 10:28 AM STOP BANG Questionnaire (?? 2008, the [place] [employer]esthesi[employer], Inc. [employer] 1. Snoring - Do you snore loudly (louder than talking or loud enough to be heard through closed doors)? No 2. Tired - Do you often feel tired, fatigued, or sleepy during daytime? Yes 3. Observed - Has anyone observed you stop breathing during your sleep? No 4. Blood pressure - Do you have or are you being treated for high blood pressure? No 5. BMI - BMI more than 35 kg/m2? Yes 6. Age - Age over 50 yr old? Yes 7. Neck circumference - Neck circumference greater than 40 cm? No 8. Gender - Gender male? Yes STOP BANG Score (MC): 4 (High risk of MONAE) GAD7 12/23/2023 12:37 PM LUZ-7 1. Feeling nervous, anxious, or on edge 1 2. Not being able to stop or control worrying 1 3. Worrying too much about different things 1 4. Trouble relaxing 1 5. Being so restless that it is hard to sit still 2 6. Becoming easily annoyed or irritable 3 7. Feeling afraid, as if something awful might happen 2 LUZ-7 Total Score 11 If you checked any problems, how difficult have they made it for you to do your work, take care of things at home, or get along with other people? Somewhat difficult Patient-reported CAGE-AID No data to display CAGE-AID reprinted with permission from the [place] [employer], Mallory Barcenas. and NELSON Nguyen, Conjoint screening questionnaires for alcohol and drug abuse [place] Medical Journal 94: 135-140, 1994. PATIENT HEALTH QUESTIONNAIRE-9 (PHQ - 9) 12/23/2023 12:36 PM PHQ-9 ([employer]) 1. Little interest or pleasure in doing things 2 2. Feeling down, depressed, or hopeless 0 3. Trouble falling or staying asleep, or sleeping too much 2 4. Feeling tired or having little energy 2 5. Poor appetite or overeating 2 6. Feeling bad about yourself - or that you are a failure or have let yourself or your family down 0 7. Trouble concentrating on things, such as reading the newspaper or watching television 0 8. Moving or speaking so slowly that other people could have noticed. Or the opposite - being so fidgety or restless that you have been moving around a lot more than usual 1 9. Thoughts that you would be better off , or of hurting yourself in some way 0 PHQ-9 Total Score 9 6. Feeling bad about yourself 0 7. Trouble concentrating 0 8. Moving slowly or restless 1 9. Suicidal or self-harm thoughts 0 1. Little interest or pleasure in doing things More than half the days 2. Feeling down, depressed, or hopeless Not at all 3. Trouble falling or staying asleep, or sleeping too much More than half the days 4. Feeling tired or having little energy More than half the days 5. Poor appetite or overeating More than half the days 6. Feeling bad about yourself Not at all 7. Trouble concentrating Not at all 8. Moving slowly or restless Several days 9. Suicidal or self-harm thoughts Not at all PHQ-9 via [facility] TOTAL SCORE-----> 9 (Mild depression) Difficulty at work, home, or with people Somewhat difficult Patient-reported Developed by Drs. Mario Alberto Rodriguez, Doris Fung, Javier Lemus and colleagues, with an educational sylwia from [employer]. No permission required to reproduce, translate, display or distribute. Allergies: Allergies Allergen Reactions Singulair [Montelukast] Pt felt anxious on the medicine. Medications: Current Outpatient Medications Medication Sig Dispense Refill acetaminophen (TYLENOL) 500 MG tablet Take 500-1,000 mg by mouth every 6 hours as needed for mild pain. albuterol (PROAIR HFA/PROVENTIL HFA/VENTOLIN HFA) 108 (90 Base) MCG/ACT inhaler INHALE 2 PUFFS INTOTHE LUNG 4 TIMES A DAY NEEDED 16 g 3 amoxicillin-clavulanate (AUGMENTIN) 875-125 MG tablet TAKE 1 TABLET BY MOUTH TWICE A DAY FOR 5 DAYS10 tablet 0 atorvastatin (LIPITOR) 40 MG tablet Take 1 tablet (40 mg) by mouth every evening. 90 tablet 3 budesonide (PULMICORT) 0.5 MG/2ML neb solution Take 2 mLs (0.5 mg) by nebulization 2 times daily. 120 mL 11 Continuous Glucose Sensor (FREESTYLE ANDRIA 2 SENSOR) MISC INJECT 1 EACH SUBCUTANEOUSLY EVERY 14 DAYS USE 1 SENSOR EVERY 14 DAYS. USE TO READ BLOOD SUGARS PER MICA MINER BLASTING'S INSTRUCTIONS. 2 each 5 diclofenac (VOLTAREN) 1 % topical gel Apply 2 g topically 4 times daily escitalopram (LEXAPRO) 10 MG tablet Take 1 tablet (10 mg) by mouth daily. 90 tablet 3 fluticasone (FLONASE) 50 MCG/ACT nasal spray [place] 1 spray into both nostrils daily. 11.1 mL 0 formoterol (PERFOROMIST) 20 MCG/2ML neb solution Take 2 mLs (20 mcg) by nebulization every 12 hours. 120 mL 11 glipiZIDE (GLUCOTROL XL) 10 MG 24 hr tablet Take 2 tablets (20 mg) by mouth daily. 180 tablet 1 ipratropium - albuterol 0.5 mg/2.5 mg/3 mL (DUONEB) 0.5-2.5 (3) MG/3ML neb solution TAKE 1 VIAL (3 MLS) BY NEBULIZATION EVERY 6 HOURS NEEDED FOR SHORTNESS OF BREATH / DYSPNEA /WHEEZING 360 mL 3 metFORMIN (GLUCOPHAGE XR) 500 MG 24 hr tablet TAKE 4 TABLETS BY MOUTH DAILY WITH DINNER 360 tablet 1 omeprazole (PRILOSEC) [address] capsule TAKE 1 CAPSULE BY MOUTH EVERY DAY 90 capsule 1 ondansetron (ZOFRAN) 4 MG tablet Take 1 tablet (4 mg) by mouth every 8 hours as needed for nausea. 30 tablet 0 Semaglutide, 2 MG/DOSE, (OZEMPIC) 8 MG/3ML pen Inject 2 mg subcutaneously every 7 days 9 mL 3 sucralfate (CARAFATE) 1 GM tablet Take 1 tablet (1 g) by mouth 4 times daily. 30 tablet 0 zolpidem (AMBIEN) 10 MG tablet Take tablet by mouth 15 minutes prior to sleep, for Sleep Study 1 tablet 0 Problem List: Patient Active Problem List Diagnosis Date Noted Esophageal reflux 12/23/2023 Priority: Medium LUZ (generalized anxiety disorder) 06/13/2023 Priority: Medium Radicular pain in right arm 04/21/2023 Priority: Medium Severe persistent asthma, uncomplicated (H) 03/18/2023 Priority: Medium Acute on chronic right wrist pain 10/29/2021 Priority: Medium Primary osteoarthritis of right wrist 10/29/2021 Priority: Medium Bilateral low back pain without sciatica 07/20/2020 Priority: Medium Mediastinal cyst 06/23/2020 Priority: Medium Added automatically from request for surgery [id number] Thoracic aortic aneurysm without rupture (H) - incidental finding CT scan 04/21/2020 - PCP to follow up 04/21/2020 Priority: Medium Abnormal CT of the chest - right paratracheal, elliptical cystic mass measuring approximately 3.7 x2.4 x 6.1 cm 04/21/2020 Priority: Medium Mass in chest - right paratracheal, elliptical cystic mass measuring approximately 3.7 x 2.4 x 6.1 cm 04/21/2020 Priority: Medium Type 2 diabetes mellitus with hyperglycemia, without long-term current use of insulin (H) 09/13/2019 Priority: Medium Major depressive disorder, recurrent episode, moderate (H) 03/26/2016 Priority: Medium Morbid obesity due to excess calories (H) 03/26/2016 Priority: Medium Arthritis of knee 11/03/2015 Priority: Medium Moderate persistent asthma without complication 01/27/2015 Priority: Medium Past Medical/Surgical History: Past Medical History: Diagnosis Date Arthritis of knee 11/03/2015 CARDIOVASCULAR SCREENING; LDL GOAL LESS THAN 160 12/03/2011 Depressive disorder Diabetes (H) LUZ (generalized anxiety disorder) 01/17/2017 Glucose intolerance (impaired glucose tolerance) 04/03/2016 Major depressive disorder, recurrent episode, moderate (H) 03/26/2016 Mediastinal cyst Moderate persistent asthma 12/19/2013 Moderate persistent asthma without complication 01/27/2015 Morbid obesity due to excess calories (H) 03/26/2016 Obesity 03/15/2014 Past Surgical History: Procedure Laterality Date DAVINCI EXCISE NODES THORACIC Right 07/23/2020 Procedure: ROBOT-ASSISTED mediastinal cyst excision; Surgeon: Elaina Moreno MD; Location: [facility] OR TOE SURGERY age 16 Social History: Social History Socioeconomic History Marital status: Spouse name: Not on file Number of children: Not on file Years of education: Not on file Highest education level: Not on file Occupational History Employer: [employer]. Comment: financial strain, pt is trying to retire Tobacco Use Smoking status: Former Current packs/day: 0.00 Types: Cigarettes Quit date: 12/03/1983 Years since quittin.1 Passive exposure: Past Smokeless tobacco: Never Vaping Use Vaping status: Never Used Substance and Sexual Activity Alcohol use: Not Currently Comment: occ Drug use: No Sexual activity: Not Currently Other Topics Concern Parent/sibling w/ CABG, [place] or angioplasty before 65F 55M? Not Asked Social History Narrative Not on file Social Drivers of Health Financial Resource Strain: Low Risk (12/23/2023) Financial Resource Strain Within the past 12 months, have you or your family members you live with been unable to get utilities (heat, electricity) when it was really needed?: No Food Insecurity: Low Risk (12/23/2023) Food Insecurity Within the past 12 months, did you worry that your food would run out before you got money to buy more?: No Within the past 12 months, did the food you bought just not last and you didn???t have money to getmore?: Patient declined Transportation Needs: Low Risk (12/23/2023) Transportation Needs Within the past 12 months, has lack of transportation kept you from medical appointments, getting your medicines, non-medical meetings or appointments, work, or from getting things that you need?: No Physical Activity: Unknown (12/23/2023) Exercise Vital Sign Days of Exercise per Week: 2 days Minutes of Exercise per Session: Not on file Stress: Stress Concern Present (12/23/2023) [place] [employer] - Occupational Stress Questionnaire Feeling of Stress : Rather much Social Connections: Unknown (12/23/2023) Social Connection and Isolation Panel [NHANES] Frequency of Communication with Friends and Family: Not on file Frequency of Social Gatherings with Friends and Family: Once a week Attends Shinto Services: Not on file Active Member of Clubs or Organizations: Not on file Attends Club or Organization Meetings: Not on file Marital Status: Not on file Interpersonal Safety: Low Risk (10/13/2023) Interpersonal Safety Do you feel physically and emotionally safe where you currently live?: Yes Within the past 12 months, have you been hit, slapped, kicked or otherwise physically hurt by someone?: No Within the past 12 months, have you been humiliated or emotionally abused in other ways by your partner or ex-partner?: No Housing Stability: Low Risk (12/23/2023) Housing Stability Do you have housing? : Yes Are you worried about losing your housing?: No Family History: Family History Problem Relation Age of Onset No Known Problems Mother Hypertension Maternal Grandmother Review of Systems: A complete review of systems reviewed by me is negative with the exeption of what has been mentioned in the history of present illness. In the last TWO WEEKS have you experienced any of the following symptoms? Fevers: (Patient-Rptd) No Night Sweats: (Patient-Rptd) No Weight Gain: (Patient-Rptd) Yes Pain at Night: (Patient-Rptd) No Double Vision: (Patient-Rptd) No Changes in Vision: (Patient-Rptd) Yes Difficulty Breathing through Nose: (Patient-Rptd) Yes Sore Throat in Morning: (Patient-Rptd) No Dry Mouth in the Morning: (Patient-Rptd) Yes Shortness of Breath Lying Flat: (Patient-Rptd) Yes Shortness of Breath With Activity: (Patient-Rptd) Yes Awakening with Shortness of Breath: (Patient-Rptd) Yes Increased Cough: (Patient-Rptd) No Heart Racing at Night: (Patient-Rptd) Yes Swelling in Feet or Legs: (Patient-Rptd) Yes Diarrhea at Night: (Patient-Rptd) No Heartburn at Night: (Patient-Rptd) No Urinating More than Once at Night: (Patient-Rptd) Yes Losing Control of Urine at Night: (Patient-Rptd) No Joint Pains at Night: (Patient-Rptd) Yes Headaches in Morning: (Patient-Rptd) No Weakness in Arms or Legs: (Patient-Rptd) Yes Depressed Mood: (Patient-Rptd) Yes Anxiety: (Patient-Rptd) Yes Physical Examination: Vitals: BP 121/82 Pulse 93 Resp 16 Ht 1.753 m (5' 9) Wt 131.6 kg (290 lb 3.2 oz) SpO2 90% BMI 42.86 kg/m?? BMI= Body mass index is 42.86 kg/m??. Neck Cir (cm): 46 cm GENERAL APPEARANCE: healthy, alert, no distress, cooperative, and wearing a mustache and goatee EYES: Eyes grossly normal to inspection, PERRL, conjunctivae and sclerae normal, and lids and lashes normal HENT: nose and mouth without ulcers or lesions, oropharynx crowded, uvula elongated, tongue base enlarged, oral mucous membranes moist, and normal cephalic/atraumatic RESP: lungs clear to auscultation - no rales, rhonchi or wheezes CV: regular rates and rhythm, normal S1 S2, no S3 or S4, and no murmur, click or rub ABDOMEN: bowel sounds normal, obese, and soft, non-tender NEURO: Alert and oriented x 3, normal strength and tone, mentation intact, and speech normal PSYCH: mentation appears normal and affect normal/bright Mallampati Class: III. Tonsillar Stage: 2 visible at pillars. Data: All pertinent previous laboratory data reviewed Recent Labs Lab Test 01/02/24 1544 11/08/231999 NA 141 142 POTASSIUM 4.4 4.0 CHLORIDE 102 105 CO2 29 25 ANIONGAP 10 12 GLC 174* 142* BUN 20.7 19.6 CR 0.90 0.79 PARTHA 9.8 8.8 Recent Labs Lab Test 01/02/24 1544 WBC 6.6 RBC 4.97 HGB 14.1 HCT 41.2 MCV 83 MCH 28.4 MCHC 34.2 RDW 13.6 PLT 223 Recent Labs Lab Test 01/02/24 1544 PROTTOTAL 7.0 ALBUMIN 4.0 BILITOTAL 0.6 ALKPHOS 100 AST 20 ALT 28 TSH Date Value 01/02/2024 1.23 uIU/mL 02/12/2019 1.04 mU/L 12/28/2013 0.77 mU/L No results found for: UAMP, UBARB, BENZODIAZEUR, UCANN, UCOC, OPIT, UPCP No results found for: IRONSAT, [id number], LACY No results found for: PH, PHARTERIAL, PO2, LO5ASLJXALL, SAT, PCO2, HCO3, BASEEXCESS, JT, BEB @LABRCNTIPR(phv:4,pco2v:4,po2v:4,hco3v:4,flor:4,o2per:4)@ Echocardiology: No results found for this or any previous visit (from the past 4320 hours). 09/16/2021 Echocardiogram Complete [facility] [address] [place] [id number] Name: MARSHALL OLVERA : 1960 Study Date: 09/16/2021 02:45 PM Age: 61 yrs Gender: Male Patient Location: [facility] Reason For Study: Thoracic aortic aneurysm without rupture (H) Ordering Physician: MAINOR BOJORQUEZ Referring Physician: MAINOR BOJORQUEZ Performed By: Yoon Musa BSA: 2.5 m2 Height: 69 in Weight: 300 lb BP: 122/81 mmHg Procedure Complete Echo Adult. Interpretation Summary Mild aortic root dilatation, 3.9 cm The ascending aorta is Moderately dilated, 4.5 cm. There is no comparison study available. Left Ventricle The left ventricle is normal in size. There is normal left ventricular wall thickness. The visual ejection fraction is 60-65%. Left ventricular diastolic function is normal. Right Ventricle The right ventricle is normal in structure, function and size. Atria Normal left atrial size. Right atrial size is normal. Mitral Valve The mitral valve leaflets appear normal. There is no evidence of stenosis, fluttering, or prolapse. There is mild mitral annular calcification. Tricuspid Valve Normal tricuspid valve. Aortic Valve Normal tricuspid aortic valve. Pulmonic Valve Normal pulmonic valve. Vessels Mild aortic root dilatation. The ascending aorta is Moderately dilated. The inferior vena cava is normal. Pericardium There is no pericardial effusion. Rhythm Sinus rhythm was noted. MMode/2D Measurements & Calculations LVIDd: 5.3 cm LVIDs: 3.4 cm LVPWd: 0.82 cm FS: 34.6 % Ao root diam: 3.9 cm asc Aorta Diam: 4.5 cm LVOT diam: 2.1 cm LVOT area: 3.6 cm2 LA Volume (BP): 70.2 ml LA Volume Index (BP): 28.7 ml/m2 RWT: 0.31 Doppler Measurements & Calculations MV E max vic: 78.3 cm/sec MV A max vic: 97.1 cm/sec MV E/A: 0.81 MV dec slope: 336.4 cm/sec2 MV dec time: 0.24 sec PA acc time: 0.08 sec E/E' av.2 Lateral E/e': 11.1 Medial E/e': 13.4 Chest x-ray: Chest XR, PA & LAT 06/05/2023 Narrative EXAM: XR CHEST 2 VIEWS LOCATION: [facility] DATE: 06/05/2023 INDICATION: nausea, wkns COMPARISON: CT 10/22/2022 Impression IMPRESSION: The lungs are clear without focal opacity. Prominent ascending aortic contour correlating with the dilatation better seen on the comparative CT. No pneumothorax or pleural effusion. No significant interval change allowing for intermodality differences. Chest CT: CT Chest w contrast 01/12/[address] of the chest with contrast HISTORY: [...] is limited Bones: No suspicious bony lesions. Impression IMPRESSION: 1. Ascending aortic aneurysm. 2. Small right lower paratracheal low density nodes or pericardial recess fluid similar to previous. CONNIE FISHER MD PFT: Most Recent [facility] Pulmonary Function Testing FVC-Pred Date Value Ref Range Status 04/23/2020 4.22 L FVC-Pre Date Value Ref Range Status 04/23/2020 3.23 L FVC-%Pred-Pre Date Value Ref Range Status 04/23/2020 76 % FEV1-Pre Date Value Ref Range Status 04/23/2020 1.87 L FEV1-%Pred-Pre Date Value Ref Range Status 04/23/2020 57 % [id number] Date Value Ref Range Status 04/23/2020 78 % [id number] Date Value Ref Range Status 04/23/2020 58 % No results found for: FEFMax-Pred Date Value Ref Range Status 04/23/2020 8.59 L/sec FEFMax-Pre Date Value Ref Range Status 04/23/2020 4.40 L/sec FEFMax-%Pred-Pre Date Value Ref Range Status 04/23/2020 51 % ExpTime-Pre Date Value Ref Range Status 04/23/2020 11.07 sec FIFMax-Pre Date Value Ref Range Status 04/23/2020 4.54 L/sec [id number] Date Value Ref Range Status 04/23/2020 79 % [id number] Date Value Ref Range Status 04/23/2020 61 % Narrative Performed by: FRANCESCA PFT FEV1 and FEV1/FVC are reduced. FVC is normal. TLC is normal. RV is elevated DLCO is elevated. Following bronchodilator administration, there is a significant response. IMPRESSION: Moderately severe airflow obstruction. There is a significant bronchodilator response. There is air trapping without hyperinflation. Increased diffusion. 01/13/2024 6-Minute Walk Test Narrative Performed by: FRANCESCA PFT IMPRESSION: Six minute walk distance is reduced indicating a decrease in exercise tolerance. There is no significant oxygen desaturation during the six minute walk on room air. Gaurav Valenzuela APRN CNP 01/30/2024 Sleep Medicine This note was written with the assistance of the [employer]-dictation technology software. The final document, although reviewed, may contain errors. For corrections, please contact the office. IRATORY THERAPIST documented in this encounter Nursing Notes * Estella Pack MA - 01/30/2024 10:30 AM CST Chief Complaint Patient presents with Sleep Problem Excessive daytime sleepiness, snoring, restless leg movement, wants to discuss options for better sleeping Initial BP 121/82 Pulse 93 Resp 16 Ht 1.753 m (5' 9) Wt 131.6 kg (290 lb 3.2 oz) SpO2 90% BMI 42.86 kg/m?? Estimated body mass index is 42.86 kg/m?? as calculated from the following: Height as of this encounter: 1.753 m (5' 9). Weight as of this encounter: 131.6 kg (290 lb 3.2 oz). Medication Reconciliation: complete Neck circumference: 18 inches / 46 centimeters. DME: N/A PADDY De Anda IRATORY THERAPIST documented in this encounter Plan of Treatment Upcoming Encounters Date Type Department Care Team (Late st Contact Info) Description 02/01/2024 3:00 PM RESPIRATORY THERAPIST Office Visit [facility] [place] [address] [facility] [phone] Manuel Ahn, OD [address] [facility] [place] [address] 02/02/2024 1:30 PM RESPIRATORY THERAPIST Therapy Visit [facility] Special[facility] [place] [address] [facility] [address] [place] [phone] Alicja Roldan, OT [address]09 [place] [address] 02/05/2024 8:00 PM RESPIRATORY THERAPIST Therapy Visit [facility] [place] [address] [facility] [address] [place] [phone] 02/13/2024 4:30 PM RESPIRATORY THERAPIST Oncology Visit [facility] [address] [place] [phone] Marian Agustin, LAY OUT TECHNICIAN [facility] [address] [facility] [address] [place] [address] 03/01/2024 7:00 AM RESPIRATORY THERAPIST Office Visit [facility] [address] [place] [phone] Estella Hassan, [facility] [address] [place] [address] 03/23/2024 2:00 PM RESPIRATORY THERAPIST Office Visit [facility] [address] [place] [address] [place] [phone] Lizet Mann PA-C [address] [place], [place] [address]335 03/29/2024 3:30 PM RESPIRATORY THERAPIST Office Visit [facility] [address] [facility] [address] [place] [address] Hakeem Chacko MBBS [address] [place] [address] 05/03/2024 3:00 PM RESPIRATORY THERAPIST Office Visit [facility] [address] [phone] Gaurav Valenzuela, LAY OUT TECHNICIAN [facility] [address] [place] [address] [id number] 05/22/2024 10:30 AM CDT Office Visit [address] [phone] Estella Hassan, [facility] [address] [place] [address] 05/22/2024 11:30 AM CDT Office Visit [address] [phone] [place] [address] [place], [place] [phone] Scheduled Orders Name Type Priority Associated Diagnoses Orde r Schedule Comprehensive Sleep Study Procedures Routine Suspected sleep apnea Snoring Excessive daytime sleepiness Insomnia, unspecified type Moderate persistent asthma without complication Morbid obesity with BMI of 40.0-44.9, adult (H) Expected: 05/01/2024 (Approximate), Expires: 01/29/2025 documented as of this encounter Goals Goal Patient Goal Type Associated Problems Recent Progress Patient-Stated? Author Health Maintenance Care Plan HP GENERAL PROBLEM 100%( 023 10:17 AM CDT) No Mitra Kendall, SIGNAL PERSON Note: Update on 05/25/22 Barriers: Currently without [...] for health insurance by looking in to [place] and talking with a FRW. Completed 3. I will look for a new job and will access resources that the [employer] offers. . Sarted new job 4. Continue [...] Due or Overdue 20%(01/27/20 24 7:55 AM RESPIRATORY THERAPIST) No Mitra Kendall LSW Note: Barriers: Life [...] understand I can contact my clinic with 24 after hours services available. I will discuss, review, schedule and complete any recommended overdue health maintenance with my provider/care team. I will continue to outreach to care coordination as needed for additional resources or supports. Create an action plan to increase financial stability Care Plan Patient expresses financial resource strain 20%(01/27/20 24 7:56 AM RESPIRATORY THERAPIST) No Mitra Kendall LSW Note: Barriers: Owe [...] documented as of this encounter Visit Diagnoses Diagnosis Suspected sleep apnea- Primary Snoring Other dyspnea and respiratory abnormality Excessive daytime sleepiness Insomnia, unspecified type Moderate persistent asthma without complication Unspecified asthma Morbid obesity with BMI of 40.0-44.9, adult (H) documented in this encounter Additional Health Concerns Active [...] documented as of this encounter Care Teams Razor Sharpener Relationship Specialty [place] [address] [place] [address] PCP - General Family Practice 07/11/14 [place] [address] [place] [address] Assigned PCP 12/16/11 Christy Campuzano PA-C [address] [place] [address] 249392 Referring Physician Family Medicine 04/22/20 Hans Cannon MD [address] [place] [address] Resident Pulmonary Disease 04/22/20 Estella Hassan, [facility] [place] [address] Pharmacist Pharmacist 05/26/20 Elaina Moreno MD 9[address] [place] [address] Cardiovascular & Thoracic Surgery 08/06/20 John Webb MD [address] [address] Cardiovascular Disease 08/25/21 John Webb MD [address] [address] Cardiovascular Disease 08/25/21 Estella Hassan, [facility] [address] [place] [address] Assigned MTM Pharmacist 12/09/21 Lindsay Carey OD [address] [facility] [place] [address] Ophthalmology 01/29/22 Richard Kam MD [address] [place] [address] Assigned Musculoskeletal Provider 08/14/22 [place] [address] [address] [place] [id number] Assigned Neuroscience Provider 01/01/23 Rosemarie Mcdowell, RN Icicle Machine Operator Diabetes Education 03/17/23 Mitra Kendall, SIGNAL PERSON Lead Counter Intelligence Technician Primary Care - CC 12/12/23 Lizet Mann PA-C [address] [place] [address] Assigned Cancer Care Provider 01/04/24 Marshall Brownlee MD [address] [facility] [address] [place], [place] 0[address] Assigned Pulmonology Provider 01/04/24 Nav Hughes MD [address] [place] [address] [place] [id number] Assigned Heart and Vascular Provider 01/04/24 Manuel Ahn OD [address] [facility] [place] [id number] Car Sales Representative 01/05/24 Arabella Fishman MA Financial Resource Worker 01/06/24 Thalia Charles [facility] Pharmacist Pharmacy 01/26/24 documented as of this encounter
--- OUTSIDE RECORDS SUMMARY | 2024-01-31 20:01 | XMS_ITS | Encounter Summary ---
Author Organization [facility] [place] Address [address] [place] [address] Care Team Providers Care Studio Artist Name Role Phone Va Glez MD Primary Care Provider Va Glez MD Unavailable Christy Campuzano PAUniqueC Unavailable Hans Cannon MD Unavailable [phone] Estella Hassan [facility] Unavailable Josh Cordero MD, Madhuri Unavailable [phone] John Webb MD Unavailable John Webb MD Unavailable [phone] Estella Hassan [facility] Unavailable [phone] Lindsay Carey OD Unavailable Richard aKm MD Unavailable Gaby Vila DO Unavailable Rosemarie Mcdowell RN Unavailable Mitra Kendall BILLING ADJUDICATOR Unavailable Lizet Mann PA-C Unavailable Ravi Brownlee MD Unavailable Nav Hughes MD Unavailable [phone] Manuel Ahn OD Unavailable Arabella Fishman MA Unavailable [phone] Yfnmary Thalia [facility] Unavailable Unavailable Encounter Details Date Type Department Care Team (Latest Contact Info) Description 01/30/2024 Travel Social History Tobacco Use Types Packs/Day Years [...] re latives? Once a week 12/23/2023 Attends Nondenominational Services Not on file 12/22 Active Member [...] Answer Date Recorded PHQ-2 Score 2 12/23/2023 [facility] - [facility] Stress [...] in an abandoned building, in an overnight jail, 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.) Yes 12/23/2023 Are you worried [...] on file Legal 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 CHANNEL LIP WETTER Gender Identity Not on file Sexual Orientation Not on file Occupation Industry Job Start Date Job End Date Not on file Not on file Not on file Not on file documented as of this encounter Plan of Treatment Upcoming Encounters Date Type Department Care Team (Late st Contact Info) Description 02/01/2024 3:00 PM CHANNEL LIP WETTER Office Visit [facility] [place] [address] [facility] [place] [phone] Manuel Ahn, OD [address] [facility] [place] [place] [address] 02/02/2024 1:30 PM CHANNEL LIP WETTER Therapy Visit [facility] [address] [facility] [address] [place] [phone] Alicja Roldan, OT 909 [place] [address] 02/05/2024 8:00 PM CHANNEL LIP WETTER Therapy Visit [facility] [place] [address] [place] [address] 103 [place] [phone] 02/13/2024 4:30 PM CHANNEL LIP WETTER Oncology Visit [facility] 9[address] [place] [phone] Marian Agustin, SHREDDED FILLER HOPPER FEEDER [facility] [address] [facility] [address] [place] [address] 03/01/2024 7:00 AM CHANNEL LIP WETTER Office Visit [facility] [address] [place] [phone] Estella Hassan, [facility] 30[address] [place] [address] 03/23/2024 2:00 PM CHANNEL LIP WETTER Office Visit [facility] [address] [place] [phone] Lizet Mann PA-C 717 [place] [address] 03/29/2024 3:30 PM CHANNEL LIP WETTER Office Visit [facility] [address] [facility] 200 [place] [phone] Hakeem Chacko MBBS [address] [place] [address] 05/03/2024 3:00 PM CHANNEL LIP WETTER Office Visit [facility] [address] [place] [phone] Gaurav Valenzuela, SHREDDED FILLER HOPPER FEEDER APPEALS REPRESENTATIVE [address] [place] [address] [place], [place] [address] 05/22/2024 10:30 AM CDT Office Visit [facility] [address] [place] [phone] Estella Hassan, [facility] [address] [place] [address] 05/22/2024 11:30 AM CDT Office Visit [facility] [address] [place] [phone] [place] [address] [place], [place] [phone] documented as of this encounter Goals Goal [...] for health insurance by looking in to [place] and talking with a FRW. Completed 3. I will look for a new job and will access resources that the [employer] offers. . Sarted new job 4. Continue [...] Due or Overdue 20%(01/27/20 24 7:55 AM CHANNEL LIP WETTER) No Mitra Kendall LSW Note: Barriers: Life [...] expresses financial resource strain 20%(01/27/20 7:56 AM CHANNEL LIP WETTER) Mitra Borja LSW Note: Barriers: Owe back taxes Strengths: I am working, I receive Social Security Disability Patient expressed understanding of goal: Yes Action steps to achieve this goal: 1. I will work with FRW in applying for [facility] Care 2. I will contact [facility] Line to ask if they have [...] accurate information and submit it to the [facility]. 3. I will update CCC Team at outreach. HbA1C Not In Goal 04/28/2023 Diabetes Self-Management Edu cation Needed to Optimize Self-Care Behaviors 04/28/2023 Health Maintenance Due or Overdue 12/16/2023 Patient expresses financial resource strain 12/13 Assessment Noted Time PHQ-9 Depression Total Score: 9 12/23/19 24 12:36 PM CDT documented as of this encounter Care Teams Studio Artist Relationship Specialty [place] [address] [place] [address] PCP - General Family Practice 07/11/14 [place] [address] [place] [address] Assigned PCP 12/16/11 Christy Campuzano PA-C [address] [place] [address] Referring Physician Family Medicine 04/22/20 Hans Cannon MD [address] [place] [address] Resident Pulmonary Disease 04/22/20 Estella Hassan, [facility] [place], [place] 47[address] Pharmacist Pharmacist 05/26/20 Elaina Moreno MD 9 [place] [address] Cardiovascular & Thoracic Surgery 08/06/20 John Webb MD [address] [address] Cardiovascular Disease 08/25/21 John Webb MD [address] 912565 Cardiovascular Disease 08/25/21 Estella Hassan, [facility] [place] [address] Assigned MTM Pharmacist 12/09/21 Lindsay Carey, ARA [address] [facility] [place] [address] Ophthalmology 01/29/22 Richard Kam MD [address] [place] [address] 170715 Assigned Musculoskeletal Provider 08/14/22 [place] [address] [facility] [address] 423167 Assigned Neuroscience Provider 01/01/23 Rosemarie Mcdowell RN Charter Bus Driver Diabetes Education 03/17/23 Mitra Kendall, BILLING ADJUDICATOR Lead Crop Or Grain Farmworker Primary Care - CC 12/12/23 Lizet Mann PA-C [address] [place] [address] [id number] Assigned Cancer Care Provider 01/04/24 Ravi Brownlee MD [address] [place] [address] 276 [place], [place] 130455 Assigned Pulmonology Provider 01/04/24 Nav Hughes MD [address] 945485 Assigned Heart and Vascular Provider 01/04/24 Manuel Ahn OD [address] [id number] Manufacturing Chief Engineer 01/05/24 Arabella Fishman MA Financial Resource Worker 01/06/24 Thalia Charles [facility] Pharmacist Pharmacy 01/26/24 documented as of this encounter
--- OUTSIDE RECORDS SUMMARY | 2024-01-31 20:01 | XMS_ITS | Encounter Summary ---
Author Organization Range Address [address] [place] [address]187 Care Team Providers Care Equipment Maintenance Engineer Name Role Phone Va Glez MD Primary Care Provider Va Glez MD Unavailable Christy Campuzano PAUniqueC Unavailable [phone] Hans Cannon MD Unavailable Jim Hassan [facility] Unavailable Josh Cordero MD, Madhuri Unavailable [phone] Jhon Webb MD Unavailable John Webb MD Unavailable [phone] Jim Hassan [facility] Unavailable Lindsay Carey OD Unavailable Richard Kam MD Unavailable Gaby Vila DO Unavailable Rosemarie Mcdowell RN Unavailable Mitra Kendall HEALTH AND SAFETY REPRESENTATIVE Unavailable Lizet Mann PA-C Unavailable Ravi Brownlee MD Unavailable [phone] Nav Hughes MD Unavailable [phone] Manuel Ahn OD Unavailable [phone] Arabella Fishman MA Unavailable [phone] YfnBenito hernandezThalia [facility] Unavailable Unavailable Reason for Visit * Reason Comments Headache Shortness of Breath Encounter Details Date Type Department Care Team (Late st Contact Info) Description 01/31/2024 4:00 PM VOCATIONAL CHILDCARE TEACHER Office Visit [facility] [address] [facility] [address] Jim Morales MD [address] [facility] [place] R[place] [id number] Moderate persistent asthma with exacerbation (Primary Dx); Wheezing; Chest pain on breathing Social History Tobacco Use Types Packs/Day Years [...] re latives? Once a week 12/23/2023 Attends [employer] Not on file 12/22 Active Member [...] Answer Date Recorded PHQ-2 Score 2 12/23/2023 [facility] of Occupat ional Health - Occupational Stress [...] in an abandoned building, in an overnight longterm, 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.) Yes 12/23/2023 Are you worried [...] on file Legal 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 VOCATIONAL CHILDCARE TEACHER Gender Identity Not on file Sexual Orientation Not on file Occupation Industry Job Start Date Job End Date Not on file Not on file Not on file Not on file documented as of this encounter Last Filed Vital Signs Vital Sign Reading Time Taken Comments Blood Pressure 132/80 01/31/2024 3:29 PM VOCATIONAL CHILDCARE TEACHER Pulse 86 01/31/2024 3:29 PM VOCATIONAL CHILDCARE TEACHER Temperature 36.4 C (97.6 F) 01/31/2024 3:29 PM VOCATIONAL CHILDCARE TEACHER Respiratory Rate 20 01/31/2024 3:29 PM VOCATIONAL CHILDCARE TEACHER Oxygen Saturation 94% 01/31/2024 3:29 PM VOCATIONAL CHILDCARE TEACHER Inhaled Oxygen Concentration - - Weight 134.2 kg (295 lb 12.8 oz) 01/31/2024 3:29 PM VOCATIONAL CHILDCARE TEACHER Height 173 cm (5' 8.11) 01/31/2024 3:29 PM VOCATIONAL CHILDCARE TEACHER Body Mass Index 44.83 01/31/2024 3:29 PM VOCATIONAL CHILDCARE TEACHER documented in this encounter Progress Notes * Jim Morales MD - 01/31/2024 4:00 PM CST Assessment & Plan (J45.41) Moderate persistent asthma with exacerbation (primary encounter diagnosis) Comment: Acute, uncontrolled. I discussed with patient that it appears that he is having an asthma exacerbation at this time and it does warrant an ambulance. Patient refused higher level of care fortransportation however was agreeable to go to [place] emergency room for further evaluation. It was evident that patient is having diffuse wheezing on expiration that could be heard audibly. My concern is that patient also mention aspects of chest pain hence my desire for him to be taken via ambulance however patient declined. Risk and benefits discussed with patient. Patient verbalized understanding. Plan: Pending evaluation (R06.2) Wheezing Comment: Acute, uncontrolled Plan: See above (R07.1) Chest pain on breathing Comment: Acute, uncontrolled Plan: See above Of note patient does need to start scheduling with primary care provider. Will not be managing patient's care going forward and does need to schedule with PCP closer to home Roseline Fay is a 63 year old, presenting for the following health issues: Headache and Shortness of Breath 01/31/2024 3:30 PM Additional Questions Roomed by Tia Via the Health Maintenance questionnaire, the patient has reported the following services have beencompleted -Eye Exam: [facility] 2024-01-31, this information has been sent to the abstraction team. Headache Associated symptoms include shortness of breath. Shortness of Breath Associated symptoms include headaches. History of Present Illness Reason for visit: Follow up from previous visit Symptom onset: 1-3 days ago He is missing 2 dose(s) of medications per week. He is not taking prescribed medications regularly due to cost of medication, remembering to take and other. Patient is a 63-year-old male presenting to the clinic with concerns of wheezing and chest pain. Hestates that his symptoms started a week ago and have progressively worsened. He endorses additionalchest pain that has been intermittent for the last 24 hours. He states that he has noticed that he has difficulty with breathing and that there is associated wheezing that he can hear with each breath. He also endorses aspects of numbness in his right fingers that radiates from his back and also states that he has had difficulty of right knee pain. ROS: 10 point ROS neg other than the symptoms noted above in the HPI. Objective BP 132/80 Pulse 86 Temp 97.6 ??F (36.4 ??C) (Temporal) Resp 20 Ht 1.73 m (5' 8.11) Wt 134.2 kg (295 lb 12.8 oz) SpO2 94% BMI 44.83 kg/m?? Body mass index is 44.83 kg/m??. Physical Exam EYES: Eyes grossly normal to inspection, PERRL and conjunctivae and sclerae normal RESP: expiratory wheezes throughout PSYCH: fatigued and appearance disheveled Signed Electronically by: JIM SEYMOUR MD TIONAL CHILDCARE TEACHER documented in this encounter Plan of Treatment Upcoming Encounters Date Type Department Care Team (Late st Contact Info) Description 02/01/2024 3:00 PM VOCATIONAL CHILDCARE TEACHER Office Visit [facility] [address] [place] [address] [phone] Manuel Ahn, [address] [place] [address] 02/02/2024 1:30 PM VOCATIONAL CHILDCARE TEACHER Therapy Visit [facility] [address] [facility] [address] [place] [address] Alicja Roldan, OT 909 [place] [address] 02/05/2024 8:00 PM VOCATIONAL CHILDCARE TEACHER Therapy Visit [facility] [address] [facility] [address] [place] [phone] 02/13/2024 4:30 PM VOCATIONAL CHILDCARE TEACHER Oncology Visit [facility] 9[address] [place] [phone] Marian Agustin, WATER PROJECT ENGINEER [facility] [address] [facility] [address] [place] [address] 03/01/2024 7:00 AM VOCATIONAL CHILDCARE TEACHER Office Visit [facility] [address] [place] [phone] Jim Hassan, [facility] [address] [place] [address] 03/23/2024 2:00 PM VOCATIONAL CHILDCARE TEACHER Office Visit [facility] [address] [place] [phone] Lizet Mann PA-C 717 [place] [address] 03/29/2024 3:30 PM VOCATIONAL CHILDCARE TEACHER Office Visit [facility] [address] [facility] [address] [place] [address] Hakeem Chacko MBBS 2945 [place] [address] 05/03/2024 3:00 PM VOCATIONAL CHILDCARE TEACHER Office Visit [facility] [address] [place] [phone] Gaurav Valenzuela, WATER PROJECT ENGINEER LAB SUPPORT TECHNICIAN [address] [place] [address] 106 [place] [address] 05/22/2024 10:30 AM CDT Office Visit [facility] [address] [place] [address] Jim Hassan, [facility] [address] [place] [address] 05/22/2024 11:30 AM CDT Office Visit [facility] [address] [place] [address] [place] [address] [place] [address] documented as of this encounter Goals Goal [...] for health insurance by looking in to [email or web address] and talking with a FRW. Completed 3. I will look for a new job and will access resources that the [employer] offers. . Sarted new job 4. Continue to use Single Care to reduce the cost of my prescriptions. Create an action plan to increase financial stability Care Plan Patient expresses financial resource strain No Josefina Patel Establish Regular Follow-Ups with PCP Care Plan HbA1C Not In Goal Rosemarie Rendon RN Get HbA1C Level in Goal Care [...] Due or Overdue 20%(01/27/20 24 7:55 AM VOCATIONAL CHILDCARE TEACHER) No Mitra Kendall LSW Note: Barriers: Life [...] understand I can contact my clinic with 24/ after hours services available. I will discuss, review, schedule and complete any recommended overdue health maintenance with my provider/care team. I will continue to outreach to care coordination as needed for additional resources or supports. Create an action plan to increase financial stability Care Plan Patient expresses financial resource strain 20%(01/27/20 24 7:56 AM VOCATIONAL CHILDCARE TEACHER) Mitra Borja LSW Note: Barriers: Owe back [...] as of this encounter Visit Diagnoses Diagnosis Moderate persistent asthma with exacerbation- Primary Unspecified asthma, with exacerbation Wheezing Chest pain on breathing Painful respiration documented in this encounter Additional Health Concerns [...] accurate information and submit it to the [facility]. 3. I will update CCC Team at outreach. HbA1C Not In Goal 04/28/2023 Diabetes Self-Management Edu cation Needed to Optimize Self-Care Behaviors 04/28/2023 Health Maintenance Due or Overdue 12/16/2023 Patient expresses financial resource strain 12/13 Assessment Noted Time PHQ-9 Depression Total Score: 9 12/23/19 24 12:36 PM CDT documented as of this encounter Care Teams Equipment Maintenance Engineer Relationship Specialty [place] [address] [place] [address] PCP - General Family Practice 07/11/14 [place] [address] [place] [address] Assigned PCP 12/16/11 Christy Campuzano PA-C [address] [place] [address] 870272 Referring Physician Family Medicine 04/22/20 Hans Cannon MD [address] [place] [address] 997482 Resident Pulmonary Disease 04/22/20 Jim Hassan, [facility] [place], [place] 826766 Pharmacist Pharmacist 05/26/20 Elaina Moreno MD [address] [place], [place] 076[address] Cardiovascular & Thoracic Surgery 08/06/20 John Webb MD [address] [address] Cardiovascular Disease 08/25/21 John Webb MD [address] 910875 Cardiovascular Disease 08/25/21 Jim Hassan, [facility] [place] [address] Assigned MTM Pharmacist 12/09/21 Lindsay Carey, ARA [address] [facility] [place] [address] Ophthalmology 01/29/22 Richard Kam MD [address] [place] [address] Assigned Musculoskeletal Provider 08/14/22 [place] [address] [address] , [address] [id number] Assigned Neuroscience Provider 01/01/23 Rosemarie Mcdowell, RN Base Wad Operator Adjuster Diabetes Education 03/17/23 Mitra Kendall, [facility] Lead [facility] Primary [facility] - CC 12/12/23 Lizet Mann PA-C [address] [place], [place] 630475 Assigned Cancer Care Provider 01/04/24 Ravi Brownlee MD [address] [facility] [address] [place], [place] 332905 Assigned Pulmonology Provider 01/04/24 Nav Hughes MD [address] [facility] [address] 175395 Assigned Heart and Vascular Provider 01/04/24 Manuel Ahn OD [address] [facility] [place] [address] Roof Mechanic 01/05/24 Arabella Fishman MA Financial Resource Worker 01/06/24 Thalia Charles [facility] Pharmacist Pharmacy 01/26/24 documented as of this encounter
--- OUTSIDE RECORDS SUMMARY | 2024-01-31 20:01 | XMS_ITS | Encounter Summary ---
Author Organization [facility] Address [address] [place] [address]20 Care Team Providers Care Director Of Diversity And Inclusion Name Role Phone Va Glez MD Primary Care Provider Va Glez MD Unavailable Christy Campuzano PAUniqueC Unavailable Hans Cannon MD Unavailable Estella Hassan [facility] Unavailable Josh Cordero MD, Madhuri Unavailable [phone] John Webb MD Unavailable John Webb MD Unavailable Estella Hassan [facility] Unavailable Lindsay Carey OD Unavailable Richard Kam MD Unavailable Gaby Vila DO Unavailable Rosemarie Mcdowell RN Unavailable Mitra Kendall MANAGER ER Unavailable [phone] Lizet Mann PA-C Unavailable Ravi Brownlee MD Unavailable [phone] Nav Hughes MD Unavailable [phone] Manuel Ahn OD Unavailable Arabella Fishman MA Unavailable [phone] YfnAllen hernandezlla [facility] Unavailable Unavailable Encounter Details Date Type Department Care Team (Late st Contact Info) Description 01/31/2024 MyC Medical Advice [facility] [address] [place] [address] Nasreen Martell Social History Tobacco Use Types Packs/Day Years [...] re latives? Once a week 12/23/2023 Attends [employer] Not on file 12/22 Active Member [...] Answer Date Recorded PHQ-2 Score 2 12/23/2023 [facility] of Occupat ional Health - Occupational Stress [...] in an abandoned building, 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, 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.) Yes 12/23/2023 Are you worried [...] on file Legal 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 CLINICAL AIDE Gender Identity Not on file Sexual Orientation Not on file Occupation Industry Job Start Date Job End Date Not on file Not on file Not on file Not on file documented as of this encounter Plan of Treatment Upcoming Encounters Date Type Department Care Team (Late st Contact Info) Description 02/01/2024 3:00 PM CLINICAL AIDE Office Visit [facility] [place] [address] [facility] [place] [address] Manuel Ahn, OD [address] [place] [address] 02/02/2024 1:30 PM CLINICAL AIDE Therapy Visit [facility] [address] [facility] [address] [place] [phone] Alicja Roldan, OT [address]09 [place] [address] 02/05/2024 8:00 PM CLINICAL AIDE Therapy Visit [facility] [address] [facility] 103 [place] [phone] 02/13/2024 4:30 PM CLINICAL AIDE Oncology Visit [facility] 909 [place] [phone] Marian Agustin, FILM COMPOSER [facility] [address] [facility] 207 [place] [address] 03/01/2024 7:00 AM CLINICAL AIDE Office Visit [facility] [address] [place] [phone] Estella Hassan, [facility] 30[address] [place] [address] 03/23/2024 2:00 PM CLINICAL AIDE Office [facility] [address] [place] [address] [place] [phone] Lizet Mann PA-C [address] [place] [address] 03/29/2024 3:30 PM CLINICAL AIDE Office Visit [facility] [address] [facility] [address] [place] [phone] Hakeem Chacko MBBS 2945 [place] [address] 05/03/2024 3:00 PM CLINICAL AIDE Office Visit [place] 8[address]686 [address] [place] [address] [phone] Gaurav Valenzuela, [facility] [address] [facility] [address] [place] [address] 05/22/2024 10:30 AM CDT Office Visit [facility] [address] [place] [phone] Estella Hassan, [facility] [address] [place] [address] 05/22/2024 11:30 AM CDT Office Visit [facility] [address] [place] [phone] [place] [address] [place] [address] [phone] documented as of this encounter Goals Goal [...] my yearly preventive visit. 4. [facility] as I currently am without insurance.Going to wait for Medicare starting October 12 Create an action plan to increase financial stability Care Plan Patient expresses financial resource strain 100%( 023 10:17 AM CDT) No Mitra Kendall MANAGER ER Note: Updated on 05/25/22 Barriers: Currently not [...] job and will access resources that the [employer] offers. . Sarted new job 4. Continue [...] Self-Management Education Needed to Optimize Self-Care Behaviors Rosemraie Rendon RN Note: Reviewed healthy eating Being [...] to Optimize Self-Care Behaviors Rosemarie Rendon RN Become up-to-date with health maintenance visit(s) Care Plan Health Maintenance Due or Overdue 20%(01/27/20 24 7:55 AM CLINICAL AIDE) Mitra Borja LSW Note: Barriers: Life stressors Strengths: Engaged [...] financial resource strain 20%(01/27/20 24 7:56 AM CLINICAL AIDE) No Mitra Kendall LSW Note: Barriers: Owe [...] accurate information and submit it to the [facility]. 3. I will update CCC Team at outreach. HbA1C Not In Goal 04/28/2023 Diabetes Self-Management Edu cation Needed to Optimize Self-Care Behaviors 04/28/2023 Health Maintenance Due or Overdue 12/16/2023 Patient expresses financial resource strain 12/13 Assessment Noted Time PHQ-9 Depression Total Score: 9 12/23/19 24 12:36 PM CDT documented as of this encounter Care Teams Director Of Diversity And Inclusion Relationship Specialty [place] [address] [place] [address] PCP - General Family Practice 07/11/14 [place] [address] [place] [address] Assigned PCP 12/16/11 Christy Campuzano PA-C [address] [place] [address] 911092 Referring Physician Family Medicine 04/22/20 Hans Cannon MD [address] [place] [address] [phone] Resident Pulmonary Disease 04/22/20 Estella Hassan, [facility] [address] [place], [place] 919606 Pharmacist Pharmacist 05/26/20 Elaina Moreno MD 9 [place], [place] 459855 Cardiovascular & Thoracic Surgery 08/06/20 John Webb MD [address] 734965 Cardiovascular Disease 08/25/21 John Webb MD [address] 641215 Cardiovascular Disease 08/25/21 Estella Hassan, [facility] [address] [place] [address] Assigned MTM Pharmacist 12/09/21 Lindsay Carey OD [address] [facility] [place] [address] Ophthalmology 01/29/22 Richard Kam MD [address] [place] [address] 796185 Assigned Musculoskeletal Provider 08/14/22 [place] [address] [place], [address] [address] Assigned Neuroscience Provider 01/01/23 Rosemarie Mcdowell, RN [employer] Diabetes Education 03/17/23 Mitra Kendall, MANAGER ER Lead [place] [facility] Primary [facility] - CC 12/12/23 Lizet Mann PAUniqueC 7[address] [place], [place] 461825 Assigned Cancer Care Provider 01/04/24 Ravi Brownlee MD [address] [facility] 276 [place], [place] 340725 Assigned Pulmonology Provider 01/04/24 Nav Hughes MD [address] [place] [address] Assigned Heart and Vascular Provider 01/04/24 Manuel Ahn OD [address] [facility] [place] [address] Director Of Maternity Services 01/05/24 Arabella [place] MA Financial Resource Worker 01/06/24 Thalia Charles RPH Pharmacist Pharmacy 01/26/24 documented as of this encounter
--- OUTSIDE RECORDS SUMMARY | 2024-01-31 20:01 | XMS_ITS | Encounter Summary ---
Author Organization [facility] Address [address] [place] [address] Care Team Providers Care Cab Driver Name Role Phone Va Glez MD Primary Care Provider Va Glez MD Unavailable Christy Campuzano PAUniqueC Unavailable Hans Cannon MD Unavailable [phone] Estella Hassan [facility] Unavailable [phone] Josh Cordero MD, Madhuri Unavailable [phone] John Webb MD Unavailable [phone] John Webb MD Unavailable Estella Hassan [facility] Unavailable Lindsay Carey OD Unavailable Richard Kam MD Unavailable Gaby Vila DO Unavailable Rosemarie Mcdowell RN Unavailable Mitra Kendall BUNCH MAKER Unavailable Lizet Mann PA-C Unavailable Ravi Brownlee MD Unavailable Nav Hughes MD Unavailable [phone] Manuel Ahn OD Unavailable Arabella Fishman MA Unavailable [phone] Thalia Charles [facility] Unavailable Unavailable Encounter Details Date Type Department Care Team (Late st Contact Info) Description 01/30/2024 MyC Medical Advice [facility] [address] [facility] [address] [place] [address] Thalia Charles [facility] Social History Tobacco Use Types Packs/Day Years [...] re latives? Once a week 12/23/2023 Attends Jainism Services Not on file 12/22 Active Member [...] Answer Date Recorded PHQ-2 Score 2 12/23/2023 [facility] [place] of Occupat ional Health - Occupational Stress [...] on file Legal 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 ENGINEERING LAB TECHNICIAN Gender Identity Not on file Sexual Orientation Not on file Occupation Industry Job Start Date Job End Date Not on file Not on file Not on file Not on file documented as of this encounter Plan of Treatment Upcoming Encounters Date Type Department Care Team (Late st Contact Info) Description 02/01/2024 3:00 PM ENGINEERING LAB TECHNICIAN Office Visit [facility] Zeeshan [address] [facility] [place]AR [place] [address] Manuel Ahn, OD 8[address] [facility] [address] 02/02/2024 1:30 PM ENGINEERING LAB TECHNICIAN Therapy Visit [facility] [address] [facility] [address] [place] [phone] Alicja Roldan, OT 909 [place] [address] 02/05/2024 8:00 PM ENGINEERING LAB TECHNICIAN Therapy Visit [facility] [place] 6[address] [facility] 103 [place] [phone] 02/13/2024 4:30 PM ENGINEERING LAB TECHNICIAN Oncology Visit [facility] 909 [place] [phone] Marian Agustin, SERICULTURE TEACHER [facility] 420 [facility] 207 [place] [address] 03/01/2024 7:00 AM ENGINEERING LAB TECHNICIAN Office [facility] [address] [place] [phone] Estella Hassan, [facility] 3033 [place] [address] 03/23/2024 2:00 PM ENGINEERING LAB TECHNICIAN Office Visit [facility] [address] [place] [address] [place] [phone] Lizet Mann PA-C 717 [place] [address] 03/29/2024 3:30 PM ENGINEERING LAB TECHNICIAN Office Visit [facility] [address] [facility] [address] [place] [phone] Hakeem Chacko MBBS 2945 [place] [address] 05/03/2024 3:00 PM ENGINEERING LAB TECHNICIAN Office Visit [address] [phone] Gaurav Valenzuela, [facility] [address] [place], [place] [address]E [facility] 106 [place] [address] 05/22/2024 10:30 AM CDT Office [facility] [address] [place] [phone] Estella Hassan, [facility] 3033 [place] [address] 05/22/2024 11:30 AM CDT Office Visit [address] [address] [place] [id number] [place] [address] [phone] documented as of this encounter Goals Goal [...] my yearly preventive visit. 4. Apply for [facility] as I currently am without insurance.Going to [...] job and will access resources that the [employer] offers. . Sarted new job 4. Continue [...] Due or Overdue 20%(01/27/20 24 7:55 AM ENGINEERING LAB TECHNICIAN) No Mitra Kendall LSW Note: Barriers: Life [...] financial resource strain 20%(01/27/20 24 7:56 AM ENGINEERING LAB TECHNICIAN) No Mitra Kendall LSW Note: Barriers: Owe back taxes Strengths: I am working, I receive Social Security Disability Patient expressed understanding of goal: Yes Action steps to achieve this goal: 1. I will work with FRW in applying for [facility] Care 2. I will contact [employer] Linkage [...] accurate information and submit it to the [facility]. 3. I will update CCC Team at outreach. HbA1C Not In Goal 04/28/2023 Diabetes Self-Management Edu cation Needed to Optimize Self-Care Behaviors 04/28/2023 Health Maintenance Due or Overdue 12/16/2023 Patient expresses financial resource strain 12/13 Assessment Noted Time PHQ-9 Depression Total Score: 9 12/23/19 24 12:36 PM CDT documented as of this encounter Care Teams Cab Driver Relationship Specialty [place] [address] [place] [address] PCP - General Family Practice 07/11/14 [place] [address] [place] [address] Assigned PCP 12/16/11 Christy Campuzano PA-C [address] [place] [address] 700402 Referring Physician Family Medicine 04/22/20 Hans Cannon MD [address] [place] [address] Resident Pulmonary Disease 04/22/20 Estella Hassan, [facility] 30[address] [place], [place] 874[address] Pharmacist Pharmacist 05/26/20 Elaina Moreno MD [address] [place] [address] [id number] Cardiovascular & Thoracic Surgery 08/06/20 John Webb MD [address] 136345 Cardiovascular Disease 08/25/21 John Webb MD [address] 078425 Cardiovascular Disease 08/25/21 Estella Hassan, [facility] [address] [place], [place] 7[address] Assigned MTM Pharmacist 12/09/21 Lindsay Carey OD [address] [facility] [place] [address] Ophthalmology 01/29/22 Richard Kam MD [address] [place] [address] 153065 Assigned Musculoskeletal Provider 08/14/22 [place] [address] [place] , [address] [id number] Assigned Neuroscience Provider 01/01/23 Rosemarie Mcdowell, RN Triage Assistant Diabetes Education 03/17/23 Mitra Kendall, BUNCH MAKER Lead Sifter And Miller Primary Care - CC 12/12/23 Lizet Mann PA-C 717 [place] [address] Assigned Cancer Care Provider 01/04/24 Ravi Brownlee MD 420 [facility] 276 [place], [place] 2734[address] Assigned Pulmonology Provider 01/04/24 Nav Hughes MD [address] [place] 388305 Assigned Heart and Vascular Provider 01/04/24 Manuel Ahn OD [address] [place] [address] Sheet Metal Assembler And Riveter 01/05/24 Arabella Fishman MA Financial Resource Worker 01/06/24 Thalia Charles RPH Pharmacist Pharmacy 01/26/24 documented as of this encounter
--- OUTSIDE RECORDS SUMMARY | 2024-01-31 20:01 | XMS_ITS ---
Care Plan Created on: January 31, 2024 DeviPeter day : 1960 Sex: Male Author Organization [facility] Address [address] [place] [address] Care Team Providers Care Organizational Development Manager Name Role Phone Va Glez MD Primary Care Provider Va Glez MD Unavailable Christy Campuzano PAUniqueC Unavailable [phone] Hans Cannon MD Unavailable Estella Hassan [facility] Unavailable [phone] Josh Cordero MD, Madhuri Unavailable [phone] John Webb MD Unavailable John Webb MD Unavailable Estella Hassan [facility] Unavailable [phone] Lindsay Carey OD Unavailable Richard Kam MD Unavailable Gaby Vila DO Unavailable Rosemarie Mcdowell RN Unavailable Mitra Kendall FIREPOT OPERATOR AND TENDER Unavailable [phone] Lizet Mann PA-C Unavailable Ravi Brownlee MD Unavailable [phone] Nav Hughes MD Unavailable [phone] Manuel Ahn OD Unavailable [phone] Arabella Fishman MA Unavailable [phone] Thalia Charles [facility] Unavailable Unavailable Active Problems * This document contains information received from the source organization and may not represent a complete record from that organization. Problem Noted Date Diagnosed Date Esophageal reflux [...] (06/23/2020): Added automatically from request for surgery [id number] Thoracic aortic aneurysm wit hout rupture (H) [...] months. Assessment & Plan (01/30/2022 9:05 AM BOTTOM LOADER): Hemoglobin A1C Date Value Ref Range Status [...] 03/26/2016 Assessment & Plan (01/30/2022 9:06 AM BOTTOM LOADER): He would really like to get some of this weight off. Discussed options difficulties of weight loss in the geriatric population which he is approaching. Refer Assessment & Plan (02/12/2019 10:33 AM BOTTOM LOADER): Weight gain of 20 lbs since last [...] CDT): Still not controlled, pt went to administrative support specialist who switched to Formoterol, and BUdesonide nebs daily. Assessment & Plan (01/30/2022 9:07 AM BOTTOM LOADER): He has influenza and asthma. His breathing [...] 06/13/2023 Assessment & Plan (01/30/2022 9:07 AM BOTTOM LOADER): Discussed contagion, positive strokes for immunizations Screen for colon cancer 01/28/202203/2023 Assessment & Plan (01/30/2022 9:05 AM BOTTOM LOADER): Introduced, discussed options Wrist stiffness, right 10/29/202106/12 [...] 12/19/201310/2013 Moderate persistent asthma 12/19/2013 1 03/29/2014 Additional Health Concerns Active Problems Noted Date [...] accurate information and submit it to the [facility]. 3. I will update CCC Team at outreach. HbA1C Not In Goal 04/28/2023 Diabetes Self-Management Edu cation Needed to Optimize Self-Care Behaviors 04/28/2023 Health Maintenance Due or Overdue 12/16/2023 Patient expresses financial resource strain 12/13 Goals Goal Patient Goal Type Associated Problems [...] job and will access resources that the [employer] offers. . Sarted new job 4. [...] Due or Overdue 20%(01/27/20 24 7:55 AM BOTTOM LOADER) No Mitra Kendall LSW Note: Barriers: Life [...] financial resource strain 20%(01/27/20 24 7:56 AM BOTTOM LOADER) No Mitra Kendall LSW Note: Barriers: Owe back taxes Strengths: I am working, I receive Social Security Disability Patient expressed understanding of goal: Yes Action steps to achieve this goal: 1. I will work with FRW in applying for [facility] 2. I will contact [employer] to ask if they have resources for owing back taxes Interventions Care Plan Interventions Intervention Entry Date Outcome Provide education on when to seek professional counseling 04/28/2023 Discuss methods for coping with stress 04/28/2023 Provide education on benefits of utilizing support systems 04/28/2023 Provide education on tobacco cessation 04/28/2023 Provide education on recommendations for heart health - lipid levels and goals, blood pressure and goals, and aspirin therapy, if indicated 04/28/2023 Provide education on when to call a health care provider 04/28/2023 Provide education on how to care for diabetes on sick days 04/28/2023 Provide education on safe travel with diabetes 04/28/2023 Provide education on low blood glucose - causes, signs/symptoms, prevention, treatment, carrying a carbohydrate source at all times, and medical identification 04/28/2023 Provide education on high blood glucose - causes, signs/symptoms, prevention and treatment 04/28/2023 Provide education on frequency and refill details of medications 04/28/2023 Discuss barriers to medication adherence with patient and provide management technique ideas as appropriate 04/28/2023 Provide education on insulin and injectable diabetes medications, including administration, storage, site selection and rotation for injection sites 04/28/2023 Provide education on action of prescribed medication, including when to take and possible side effects 04/28/2023 Provide education on ketone monitoring (when to monitor, frequency, etc.) 04/28/2023 Provide education on continuous glucose monitoring (sensor placement, use of precious or work over rig operator/reader, understanding glucose trends, alerts and alarms, differences between sensor glucose and blood glucose) 04/28/2023 Explore community resources including walking groups, assistance programs, and home videos 04/28/2023 Develop physical activity plan with patient 04/28/2023 Discuss barriers to physical activity with patient 04/28/2023 Provide education on heart healthy eating 04/28/2023 Provide education on weight management 04/28/2023 Discuss diabetes treatment plan with patient 04/28/2023 Refer patient to appropriate extended care molybdenum steamer operator, as needed (Medication Therapy Management, Behavioral Health, Physical Therapy, etc.) 04/28/2023 Educate patient on benefits of regular glucose monitoring 04/28/2023 Educate patient on diabetes education self-management topics 04/28/2023 Discuss schedule for PCP visits with patient 04/28/2023 Discuss with PCP the recommended timing for patient's next follow up visit(s) 04/28/2023 Refer to Financial Resource Workers program if appropriate 03/25/2022 Refer to prescription assistance resources if appropriate 03/25/2022 Refer patient to local financial support resources within their community 03/25/2022 Related Goals and Interventions Goal Associated Intervent ions Create an action plan to inc rease financial stability Refer to Financial Resource Workers kathe mchugh if appropriate; Refer to prescription assistance resources if appropriate; Refer patient to local financial support resources within their community Establish Regular Follow-Ups with PCP Dalia escudero schedule for PCP visits with patient; Discuss with PCP the recommended timing for patient's next follow up visit(s) Get HbA1C Level in Goal Discuss diabetes treatment plan with patient; Refer patient to appropriate extended care molybdenum steamer operator, as needed (Medication Therapy Management, Behavioral Health, Physical Therapy, etc.); Educate patient on benefits of regular glucose monitoring; Educate patient on diabetes education self-management topics Healthy Eating - follow a he althy eating pattern for diabetes Provide education on heart healthy eatin g; Provide education on weight management Being Active - get regular p hysical activity, working up to at least 150 minutes per week Explore community resources including walking groups, assistance programs, and home videos; Develop physical activity plan with patient; Discuss barriers to physical activity with patient Monitoring - monitor glucose and ketones as directed Provide education on ketone monitoring (when to monitor, frequency, etc.); Provide education on continuous glucose monitoring (sensor placement, use of precious or work over rig operator/reader, understanding glucose trends, alerts and alarms, differences between sensor glucose and blood glucose) Taking Medication - patient is consistently taking medications as directed Provide education on frequency and refil l details of medications; Discuss barriers to medication adherence with patient and provide management technique ideas as appropriate; Provide education on insulin and injectable diabetes medications, including administration, storage, site selection and rotation for injection sites; Provide education on action of prescribed medication, including when to take and possible side effects Problem Solving - know how t o prevent and manage short-term diabetes complications Provide education on when to call a health care provider; Provide education on how to care for diabetes on sick days; Provide education on safe travel with diabetes; Provide education on low blood glucose - causes, signs/symptoms, prevention, treatment, carrying a carbohydrate source at all times, and medical identification; Provide education on high blood glucose - causes, signs/symptoms, prevention and treatment Reducing Risks - know how to prevent and treat long-term diabetes complications Provide education on tobacco cessation; Provide education on recommendations for heart health - lipid levels and goals, blood pressure and goals, and aspirin therapy, if indicated Healthy Coping - use availab le resources to cope with the challenges of managing diabetes Provide education on when to seek professional counseling; Discuss methods for coping with stress; Provide education on benefits of utilizing support systems
--- OUTSIDE RECORDS SUMMARY | 2024-01-31 20:02 | XMS_ITS | Encounter Summary ---
Author Organization [facility] Address [address] [place] [address] Care Team Providers Care Drywall Application Supervisor Name Role Phone Va Glez MD Primary Care Provider Va Glez MD Unavailable Christy Campuzano PAUniqueC Unavailable Hans Cannon MD Unavailable Estella Hassan [facility] Unavailable [phone] Josh Cordero MD, Madhuri Unavailable [phone] John Webb MD Unavailable John Webb MD Unavailable [phone] Estella Hassan [facility] Unavailable Lindsay Carey OD Unavailable Richard Kam MD Unavailable Gaby Vila DO Unavailable Rosemarie Mcdowell RN Unavailable Mitra Kendall LEATHER DRIER Unavailable Lizet Mann PA-C Unavailable Ravi Brownlee MD Unavailable Nav Hughes MD Unavailable [phone] Manuel Ahn OD Unavailable Arabella Fishman MA Unavailable [phone] YfnAllen hernandezlla [facility] Unavailable Unavailable Encounter Details Date Type Department Care Team (Late st Contact Info) Description 01/13/2024 MyC Medical Advice [facility] Cancer [address] [address] Claribel Mauricio, RN Social History Tobacco Use Types Packs/Day Years [...] re latives? Once a week 12/23/2023 Attends [employer] Not on file 12/22 Active Member [...] Answer Date Recorded PHQ-2 Score 2 12/23/2023 [facility] [place] of Occupat ional Health - Occupational Stress [...] in an abandoned building, in an overnight fpc, 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.) Yes 12/23/2023 Are you worried [...] on file Legal 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 STAFF INTERNIST OFFICE BASED ONLY Gender Identity Not on file Sexual Orientation Not on file Occupation Industry Job Start Date Job End Date Not on file Not on file Not on file Not on file documented as of this encounter Plan of Treatment Upcoming Encounters Date Type Department Care Team (Late st Contact Info) Description 02/01/2024 3:00 PM STAFF INTERNIST OFFICE BASED ONLY Office Visit [facility] [address] [place] [address] [place] [address] Manuel Ahn, OD 8129 [place] [address] 02/02/2024 1:30 PM STAFF INTERNIST OFFICE BASED ONLY Therapy [facility] [address] [facility] [address] [place] [phone] Alicja Roldan, OT 909 [place] [address] 02/05/2024 8:00 PM STAFF INTERNIST OFFICE BASED ONLY Therapy [facility] [place] 6[address] [facility] 103 [place] [phone] 02/13/2024 4:30 PM STAFF INTERNIST OFFICE BASED ONLY [facility]cology [facility] 909 [place] [phone] Marian Agustin, POCKET SETTER LOCKSTITCH [facility] 420 [facility] 207 [place] [address] 03/01/2024 7:00 AM STAFF INTERNIST OFFICE BASED ONLY Office Visit [facility] [address] [place] [phone] Estella Hassan, [facility] 3033 [place] [address] 03/23/2024 2:00 PM STAFF INTERNIST OFFICE BASED ONLY Office Visit [facility] [address] [place] [address] [place] [phone] Lizet Mann PA-C 717 [place] [address] 03/29/2024 3:30 PM STAFF INTERNIST OFFICE BASED ONLY Office Visit [facility] [address] [facility] [address] [place] [phone] Hakeem Chacko MBBS 2945 [place] [address] 05/03/2024 3:00 PM STAFF INTERNIST OFFICE BASED ONLY Office Visit [facility] [address] [place] [phone] Gaurav Valenzuela, POCKET SETTER LOCKSTITCH [facility] [address] [facility] 106 [place] [address] 05/22/2024 10:30 AM CDT Office Visit [facility] [address] [place] [phone] Estella Hassan, [facility] [address] [place] [address] 05/22/2024 11:30 AM CDT Office Visit [facility] [address] [place] [address] [place] [id number] [place] [address] [phone] documented as of this encounter Goals Goal Patient Goal Type Associated Problems Recent Progress Patient-Stated? Author Health Maintenance Care Plan HP GENERAL PROBLEM 100%( 023 10:17 AM CDT) No EnochMitra oates K, LEATHER DRIER Note: Update on 05/25/22 Barriers: Currently without [...] my yearly preventive visit. 4. [facility] as I currently am without insurance.Going to wait for Medicare starting October 12 Create an action plan to increase financial stability Care Plan Patient expresses financial resource strain 100%( 023 10:17 AM CDT) No Mitra Kendall K, LEATHER DRIER Note: Updated on 05/25/22 Barriers: Currently not [...] job and will access resources that the [employer] offers. . Sarted new job 4. Continue [...] Maintenance Due or Overdue 20%(01/27/20 7:55 AM STAFF INTERNIST OFFICE BASED ONLY) No Mitra Kendall LSW Note: Barriers: Life [...] expresses financial resource strain 20%(01/27/20 7:56 AM STAFF INTERNIST OFFICE BASED ONLY) No Mitra Kendall LSW Note: Barriers: Owe back taxes Strengths: I am working, I receive Social Security Disability Patient expressed understanding of goal: Yes Action steps to achieve this goal: 1. I will work with FRW in applying for [facility] 2. I will contact [facility] Linkage Line to ask if they have [...] documented as of this encounter Care Teams Drywall Application Supervisor Relationship Specialty [place] [address] [place] [address] PCP - General Family Practice 07/11/14 [place] [address] [place] [address] Assigned PCP 12/16/11 Christy Campuzano PA-C [address] [place] [address] [id number] Referring Physician Family Medicine 04/22/20 Hans Cannon MD [address] [place] [address] Resident Pulmonary Disease 04/22/20 Estella Hassan, [facility] 30[address] [place], [place] 704266 Pharmacist Pharmacist 05/26/20 Elaina Moreno MD 9 [place], [place] 822685 Cardiovascular & Thoracic Surgery 08/06/20 John Webb MD [address] [id number] Cardiovascular Disease 08/25/21 John Webb MD [address] 951555 Cardiovascular Disease 08/25/21 Estella Hassan, [facility] [address] [place] [address] Assigned MTM Pharmacist 12/09/21 Lindsay Carey OD [address] [facility] [address] Ophthalmology 01/29/22 Richard Kam MD [address] [place] [address] [id number] Assigned Musculoskeletal Provider 08/14/22 [place] [address] [place], [address] [id number] Assigned Neuroscience Provider 01/01/23 Rosemarie Mcdowell, RN Pet Sitting Diabetes Education 03/17/23 Mitra Kendall, LEATHER DRIER Lead Railroad Wheels And Axle Inspector Primary Care - CC 12/12/23 Lizet Mann PAUniqueC 717 [place], [place] 251905 Assigned Cancer Care Provider 01/04/24 Ravi Brownlee MD 420 [facility] 276 [place], [place] 7[address] Assigned Pulmonology Provider 01/04/24 Nav Hughes MD [address]ES 677785 Assigned Heart and Vascular Provider 01/04/24 Manuel Ahn, ARA [address] [facility] [place] [address] Machine Stoppage Frequency Checker 01/05/24 Arabella Fishman MA Financial Resource Worker 01/06/24 Thalia Charles [facility] Pharmacist Pharmacy 01/26/24 documented as of this encounter
--- OUTSIDE RECORDS SUMMARY | 2024-01-31 20:02 | XMS_ITS | Encounter Summary ---
Author Organization [facility] Address [address] [place] [address] Care Team Providers Care Business Sales Consultant Name Role Phone Va Glez MD Primary Care Provider Va Glez MD Unavailable Christy Campuzano PAUniqueC Unavailable [phone] Hans Cannon MD Unavailable [phone] Estella Hassan [facility] Unavailable [phone] Josh Cordero MD, Madhuri Unavailable [phone] John Webb MD Unavailable John Webb MD Unavailable [phone] Esetlla Hassan [facility] Unavailable [phone] Lindsay Carey OD Unavailable Richard Kam MD Unavailable Gaby Vila DO Unavailable Rosemarie Mcdowell RN Unavailable Mitra Kendall COMMUTATOR TESTER Unavailable Lizet Mann PA-C Unavailable [phone] Ravi Brownlee MD Unavailable Nav Hughes MD Unavailable [phone] Manuel Ahn OD Unavailable [phone] Arabella Fishman MA Unavailable [phone] Yfnmary Thalia [facility] Unavailable Unavailable Encounter Details Date Type Department Care Team (Latest Contact Info) Description 01/26/2024 Travel Social History Tobacco Use Types Packs/Day [...] re latives? Once a week 12/23/2023 Attends [employer] Not on file 12/22 Active Member [...] Answer Date Recorded PHQ-2 Score 2 12/23/2023 [facility] of Occupat ional Health - Occupational Stress [...] on file Legal 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 WET PROCESS MILLER Gender Identity Not on file Sexual Orientation Not on file Occupation Industry Job Start Date Job End Date Not on file Not on file Not on file Not on file documented as of this encounter Plan of Treatment Upcoming Encounters Date Type Department Care Team (Late st Contact Info) Description 02/01/2024 3:00 PM WET PROCESS MILLER Office Visit [facility] Zeeshan [address] [facility] [place] [phone] Manuel Ahn, OD [address] [facility] [place] [address] 02/02/2024 1:30 PM WET PROCESS MILLER Therapy Visit [facility] [address] [facility] [address] [place] [phone] Alicja Roldan, OT 909 [place] [address] 02/05/2024 8:00 PM WET PROCESS MILLER Therapy Visit [facility] [place] [address] [place] [address] 103 [place] [phone] 02/13/2024 4:30 PM WET PROCESS MILLER Oncology Visit [facility] 909 [place] [phone] Marian Agustin, LABORATORY CLERK [facility] [address] [facility] 207 [place] [address] 03/01/2024 7:00 AM WET PROCESS MILLER Office Visit [facility] [address] [place] [phone] Estella Hassan, [facility] 3033 [place] [address] 03/23/2024 2:00 PM WET PROCESS MILLER Office Visit [facility] [address] [place] [phone] Lizet Mann PA-C 717 [place] [address] 03/29/2024 3:30 PM WET PROCESS MILLER Office Visit [facility] [address] [facility] 200 [place] [phone] Hakeem Chacko MBBS 2945 [place] [address] 05/03/2024 3:00 PM WET PROCESS MILLER Office Visit [facility] [address] [place] [phone] Gaurav Valenzuela, LABORATORY CLERK LITERATURE TEACHER [address] [place] [address] [place], [place] [address] 05/22/2024 10:30 AM CDT Office Visit [facility] [address] [place] [phone] Estella Hassan, [facility] [address] [place] [address] 05/22/2024 11:30 AM CDT Office Visit [facility] [address] [place] [address] [place] [address] [place], [place] [phone] documented as of this encounter Goals Goal [...] job and will access resources that the [employer] offers. . Sarted new job 4. Continue [...] Due or Overdue 20%(01/27/20 24 7:55 AM WET PROCESS MILLER) No Mitra Kendall LSW Note: Barriers: Life [...] expresses financial resource strain 20%(01/27/20 7:56 AM WET PROCESS MILLER) Mitra Borja LSW Note: Barriers: Owe back taxes Strengths: I am working, I receive Social Security Disability Patient expressed understanding of goal: Yes Action steps to achieve this goal: 1. I will work with FRW in applying for [facility] Care 2. I will contact [facility] Line to ask if they have resources [...] accurate information and submit it to the [facility]. 3. I will update CCC Team at outreach. HbA1C Not In Goal 04/28/2023 Diabetes Self-Management Edu cation Needed to Optimize Self-Care Behaviors 04/28/2023 Health Maintenance Due or Overdue 12/16/2023 Patient expresses financial resource strain 12/13 Assessment Noted Time PHQ-9 Depression Total Score: 9 12/23/19 24 12:36 PM CDT documented as of this encounter Care Teams Business Sales Consultant Relationship Specialty [place] [address] [place] [address] PCP - General Family Practice 07/11/14 [place] [address] [place] [address] Assigned PCP 12/16/11 Christy Campuzano PA-C [address] [place] [address] Referring Physician Family Medicine 04/22/20 Hans Cannon MD [address] [place] [address] Resident Pulmonary Disease 04/22/20 Estella Hassan, [facility] [employer] [place] 638166 Pharmacist Pharmacist 05/26/20 Elaina Moreno MD 9 [place] [address] Cardiovascular & Thoracic Surgery 08/06/20 John Webb MD [address] [address] Cardiovascular Disease 08/25/21 John Webb MD [address] [id number] Cardiovascular Disease 08/25/21 Estella Hassan, [facility] [place] [address] Assigned MTM Pharmacist 12/09/21 Lindsay Carey, ARA [address] [facility] [place] [address] Ophthalmology 01/29/22 Richard Kam MD [address] [place] [address] 072605 Assigned Musculoskeletal Provider 08/14/22 [place] [address] [facility] [address] 853447 Assigned Neuroscience Provider 01/01/23 Rosemarie Mcdowell RN Upholsterer [employer] Diabetes Education 03/17/23 Mitra Kendall, COMMUTATOR TESTER Lead Stores Assistant Primary Care - CC 12/12/23 Lizet Mann PA-C [address] [place] [address] 695885 Assigned Cancer Care Provider 01/04/24 Ravi Brownlee MD [address] [place] [address] 276 [place], [place] 5648[address] Assigned Pulmonology Provider 01/04/24 Nav Hughes MD [address] [id number] Assigned Heart and Vascular Provider 01/04/24 Manuel Ahn OD [address] 645002 Teachers Aide 01/05/24 Arabella Fish[place] MA Financial Resource Worker 01/06/24 Thalia Charles [facility] Pharmacist Pharmacy 01/26/24 documented as of this encounter
--- OUTSIDE RECORDS SUMMARY | 2024-01-31 20:02 | XMS_ITS | Encounter Summary ---
Author Organization [facility] Address [address] [place] [address]220 Care Team Providers Care Radiologist Physician Name Role Phone Va Glez MD Primary Care Provider [phone] Va Glez MD Unavailable Christy Campuzano PAUniqueC Unavailable Hans Cannon MD Unavailable Estella Hassan [facility] Unavailable [phone] Josh Cordero MD, Madhuri Unavailable [phone] John Webb MD Unavailable [phone] John Webb MD Unavailable Estella Hassan [facility] Unavailable Lindsay Carey OD Unavailable Richard Kam MD Unavailable Gaby Vila DO Unavailable Rosemarie Mcdowell RN Unavailable Mitra Kendall SIDE TRIMMER Unavailable Lizet Mann PA-C Unavailable Ravi Brownlee MD Unavailable Nav Hughes MD Unavailable [phone] AnabelleManuel OD Unavailable [phone] Arabella Fishman MA Unavailable [phone] Reason for Referral * Rehab Therapy Cardiac Therapy (Routine: Next available opening) - Pending Review Specialty Diagnoses / Procedures Referred By Contandrew t Referred To Contact Diagnoses Moderate persistent asthma without complication Lizet Mann PA-C [address] [place] [address] Phone: tel: fax: Referral ID Status Reason Start Date Expiration Date V isits Requested Visits Authorized [id number] Pending Review 01/17/2024 01/16/2025 1 1 Question Answer Reason for Referral: Asthma, Dyspnea on Exertion Is Respiratory Disfunction due to COVID-19 (min 4 weeks)? No Patient Scheduling Instructions: [facility] will call you to coordinate your care as prescribed by your provider. If you don't hear from a retail wireless sales representative within 2 business days, please call . Additional Information: Oxygen to be applied as needed for desaturation < 88% at rest and with exertion (below 90% if diagnosis of pulmonary hypertension). Comments Please be aware that coverage of these services is subject to the terms and limitations of your health insurance plan. Call member services at your health plan with any benefit or coverage questions. [facility] will call you to coordinate your care as prescribed by your provider. If you don't hear from a retail wireless sales representative within 2 business days, please call . UTATIONAL MATHEMATICIAN Reason for Visit * Reason Onset Date Comments Results 01/16/2024 6MWT Encounter Details Date Type Department Care Team (Late st Contact Info) Description 01/16/2024 Telephone [facility] [address] [phone] Lizet Mann PA-C [address] [place] [address] Results (6MWT) Social History Tobacco Use Types Packs/Day Years [...] re latives? Once a week 12/23/2023 Attends [employer] Not on file 12/22 Active Member [...] Answer Date Recorded PHQ-2 Score 2 12/23/2023 [facility] of Occupat ional Health - Occupational Stress [...] Date Recorded Do you have housing? (Denita g is defined as stable permanent housing and does not include staying ouside in a car, in a tent, in an abandoned building, in an overnight usp, 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.) Yes 12/23/2023 Are you worried [...] on file Legal 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 COMPUTATIONAL MATHEMATICIAN Gender Identity Not on file Sexual Orientation Not on file Occupation Industry Job Start Date Job End Date Not on file Not on file Not on file Not on file documented as of this encounter Miscellaneous Notes * Telephone Encounter - Dino Ponce RN - 01/16/2024 4:01 PM CST Patient completed 6MWT on 01/13/24. Results reviewed by Lizet Mann PA-C who recommended the following. Please notify patient that he does not qualify for supplemental oxygen on exertion, spo2 remained 90% or greater. O2 was on the low end though.. I do think he'd benefit from pulmonary rehab. If he'sopen to this can you pend an order for me? I'm also waiting on his ORTIZ on room air. Called patient and relaying information. Patient has ORTIZ device and will complete ORTIZ tonight. Patient is agreeable to pulm rehab at this time. Pended order for Lizet to sign. Provided patient withinformation on [facility] Cost of Care department to help determine OOP cost for pulm rehab. Dino Ponce, RN UTATIONAL MATHEMATICIAN documented in this encounter Plan of Treatment Upcoming Encounters Date Type Department Care Team (Late st Contact Info) Description 02/01/2024 3:00 PM COMPUTATIONAL MATHEMATICIAN Office Visit [facility] 6[address] [place] [phone] Manuel Ahn, [address] [place] [address] 02/02/2024 1:30 PM COMPUTATIONAL MATHEMATICIAN Therapy Visit [facility] [place] [facility] [place] [address] [place] [phone] Alicja Roldan, OT 909 [place] [address] 02/05/2024 8:00 PM COMPUTATIONAL MATHEMATICIAN Therapy Visit [facility] [place] [address] [facility] 103 [place] [phone] 02/13/2024 4:30 PM COMPUTATIONAL MATHEMATICIAN Oncology Visit [facility] 909 [place] [phone] Marian Agustin, NESSA FIRE ALARM TECHNICIAN [address] [facility] 207 [place] [address] 03/01/2024 7:00 AM COMPUTATIONAL MATHEMATICIAN Office Visit [facility] [address] [place] [phone] Estella Hassan, [facility] 3033 [place] [address] 03/23/2024 2:00 PM COMPUTATIONAL MATHEMATICIAN Office Visit [facility] [address] [place] [phone] Lizet Mann PA-C [address] [place] [address] 03/29/2024 3:30 PM COMPUTATIONAL MATHEMATICIAN Office Visit [facility] [address] [facility] [address] [place] [address] Hakeem Chacko MBBS 2945 [place] [address] 05/03/2024 3:00 PM COMPUTATIONAL MATHEMATICIAN Office Visit [facility] [address] [phone] Gaurav Valenzuela, NESSA [address] [address] 05/22/2024 10:30 AM CDT Office Visit [address] [phone] [facility] 30[address] [place] [address] 05/22/2024 11:30 AM CDT Office Visit [address] [address] Va Glez MD [address] [place] [address] [phone] Scheduled Referrals Name Type Priority Associated Diagnoses Orde r Schedule Pulmonary Rehab Water Quality Control Engineer Referral Referral Routine: Next available opening Moderate persistent asthma without complication Expected: 01/17/2024 (Approximate), Expires: 01/15/2025 documented as of this encounter Goals Goal Patient Goal Type Associated Problems Recent Progress Patient-Stated? Author Health Maintenance Care Plan HP GENERAL PROBLEM 100%( 023 10:17 AM CDT) No Mitra Kendall, SIDE TRIMMER Note: Update on 05/25/22 Barriers: Currently without [...] for health insurance by looking in to [email or web address] and talking with a FRW. Completed 3. I will look for a new job and will access resources that the [facility] offers. . Sarted new job 4. Continue [...] Maintenance Due or Overdue 20%(01/27/20 7:55 AM COMPUTATIONAL MATHEMATICIAN) No Mitra Kendall LSW Note: Barriers: Life [...] financial resource strain 20%(01/27/20 24 7:56 AM COMPUTATIONAL MATHEMATICIAN) No Mitra Kendall LSW Note: Barriers: Owe [...] encounter Visit Diagnoses Diagnosis Moderate persistent asthma without complication- Primary Unspecified asthma documented in this encounter Additional Health Concerns [...] documented as of this encounter Care Teams Radiologist Physician Relationship Specialty [place] [address] [place] [address] PCP - General Family Practice 07/11/14 [place] [address] [place] [address] Assigned PCP 12/16/11 Christy Campuzano PA-C [address] [place] [address] 010852 Referring Physician Family Medicine 04/22/20 Hans Cannon MD [address] [place] [address] 074022 Resident Pulmonary Disease 04/22/20 Estella Hassan, [facility] 30[address] [place] [address] Pharmacist Pharmacist 05/26/20 Elaina Moreno MD 909 [place], [place] 2868[address] Cardiovascular & Thoracic Surgery 08/06/20 John Webb MD [address] 490355 Cardiovascular Disease 08/25/21 John Webb MD [address] 224375 Cardiovascular Disease 08/25/21 Estella Hassan, [facility] [address] [place] [address] Assigned MTM Pharmacist 12/09/21 Lindsay Carey OD [address] [facility] [address] Ophthalmology 01/29/22 Richard Kam MD [address] [place], [place] 351555 Assigned Musculoskeletal Provider 08/14/22 [place] [address] [place] [address] [address] Assigned Neuroscience Provider 01/01/23 Rosemarie Mcdowell, RN Mail Room Clerk Diabetes Education 03/17/23 Mitra Kendall, SIDE TRIMMER Lead Poultry Farm Laborer Primary Care - CC 12/12/23 Lizet Mann PA-C [address] [place], [place] 938825 Assigned Cancer Care Provider 01/04/24 Ravi Brownlee MD [address] [facility] [address] [place], [place] 7[address] Assigned Pulmonology Provider 01/04/24 Nav Hughes MD [address] [facility] [place] [address] 349045 Assigned Heart and Vascular Provider 01/04/24 Manuel Ahn OD [address] [address] 948662 Urban Forester 01/05/24 Arabella [place] MA Financial Resource Worker 01/06/24 documented as of this encounter
--- OUTSIDE RECORDS SUMMARY | 2024-01-31 20:02 | XMS_ITS | Encounter Summary ---
Author Organization [facility] Address [address] [place] [address] Care Team Providers Care Roller Bearing Inspector Name Role Phone Va Glez MD Primary Care Provider Va Glez MD Unavailable Christy Campuzano PAUniqueC Unavailable Hans Cannon MD Unavailable Estella Hassan [facility] Unavailable Josh Cordero MD, Madhuri Unavailable [phone] John Webb MD Unavailable John Webb MD Unavailable Estella Hassan [facility] Unavailable Lindsay Carey OD Unavailable Richard Kam MD Unavailable Gaby Vila DO Unavailable Rosemarie Mcdowell RN Unavailable Mitra eKndall HEALTH INFORMATION MANAGER Unavailable [phone] Lizet Mann PA-C Unavailable Ravi Brownlee MD Unavailable Nav Hughes MD Unavailable [phone] Manuel Ahn OD Unavailable Arabella Fishman MA Unavailable [phone] Thalia Charles [facility] Unavailable Unavailable Reason for Visit * Reason Comments Medication Therapy Management Encounter Details Date Type Department Care Team (Late st Contact Info) Description 01/26/2024 7:00 AM GREENS CUTTER Office Visit [address] [address] Estella Hassan, [facility] [address] [place], [place] [id number] Type 2 diabetes mellitus without complication, without long-term current use of insulin (H) (Primary Dx); Morbid obesity due to excess calories (H); Major depressive disorder, recurrent episode, moderate (H); LUZ (generalized anxiety disorder) Social History Tobacco Use Types Packs/Day Years [...] re latives? Once a week 12/23/2023 Attends [employer] Not on file 12/22 Active Member [...] Answer Date Recorded PHQ-2 Score 2 12/23/2023 [facility] - Occupational Stress [...] on file Legal 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 GREENS CUTTER Gender Identity Not on file Sexual Orientation Not on file Occupation Industry Job Start Date Job End Date Not on file Not on file Not on file Not on file documented as of this encounter Last Filed Vital Signs Vital Sign Reading Time Taken Comments Blood Pressure 112/80 01/26/2024 8:02 AM GREENS CUTTER Pulse - - Temperature - - Respiratory Rate - - Oxygen Saturation - - Inhaled Oxygen Concentration - - Weight 133.8 kg (295 lb) 01/26/2024 8:02 AM GREENS CUTTER Height - - Body Mass Index 43.56 01/02/2024 2:49 PM CDT documented in this encounter Patient Instructions * Patient Instructions* Benito Charlesdarius [facility] - 01/26/2024 7:00 AM GREENS CUTTER Recommendations from today's MTM visit: Restart Ozempic. We are going to go up on the dose slowly: Inject on The first 2 weeks, dial the pen to 9 clicks (0.25 mg) and inject once weekly - we injected the first dose today. For the next two weeks, dial the pen to 18 clicks (0.5 mg) and inject once weekly After that, dial the pen to 37 clicks (1 mg) and inject once weekly. Stay at this dose. Blood sugars Your goal fasting blood sugar (before you eat anything for the day) is 80-130 mg/dL Your goal blood sugar after meals is <200 mg/dL. If you ever feel shaky or sweaty, you can take your blood sugar to check If your blood sugar is ever less than 80 mg/dL, eat a small snack with sugar or carbs like a half cup of regular soda or some hard candies. Call to replace your broken andre sensor. You also have refills on file at [facility]. You can have them transferred to [facility] if you would like, just ask the pharmacist at [facility]. Whenever you aren't using your freestyle andre, take your blood sugar with your finger poke once daily. Increase your glipizide dose to 20 mg daily You can either take 2 tablets of 10 mg, or 4 tablets of 20 mg Take it with your breakfast every morning. It was great speaking with you today. I value your experience and would be very thankful for your time in providing feedback in our clinic survey. In the next few days, you may receive an email or text message from [facility] [email or web address] with a link to a survey related to your ???clinical pharmacist. To schedule another MTM appointment, please call the clinic directly or you may call the MTM scheduling line at [phone] or toll-free at . My Clinical Pharmacist's contact information: Please feel free to contact me with any questions or concerns you have. Roz Charles PharmD Medication Therapy Management Office Technology Instructor Pager: [phone] Estella Hassan PharmD, [facility] Medication Therapy Management Provider, [facility] [phone] NS CUTTER NS CUTTER documented in this encounter Progress Notes * Estella Hassan [facility] - 01/26/2024 7:00 AM CST Medication Therapy Management (MTM) Encounter ASSESSMENT: Medication Adherence/Access: See below for considerations. Diabetes/Weight Management: Patient is not meeting A1c goal of < 7%. Self monitoring of blood glucose is not at goal of fasting 80-130 mg/dL. Recommend patient start Ozempic and increase to 1 mg as previously planned. Because he has tolerated in the past, ok to titrate doses over 2 weeks vs. 4. Because of high fasting blood glucose today, also recommend increasing glipizide dose as planned. Patient prefers to continue to try andre sensors for now, but ok for patient to take daily blood glucose with his meter and test strips if more affordable and frequent. Anxiety/Depression: Anxiety not well controlled. Recommend patient continue with therapy. Patient may benefit from increase in escitalopram dose, though not discussed today due to the number of changes/education needed for diabetes. PLAN: Restart Ozempic at 9 clicks ~0.25 mg once a week for 2 weeks then 18 clicks ~0.5 mg weekly for 2 weeks then increase to 37 clicks ~1 mg weekly if no side effects. Injected first dose of Ozempic 0.25 mg in clinic today. Increase Glipizide to 20 mg once daily as planned. Call to replace your broken freestyle andre sensors. Until you are able to get sensors, take your blood sugar with traditional meter and test strips once daily. Follow-up: Return in 5 weeks (on 03/01/2024) for Medication Therapy Management, Follow up. Future Considerations: Increase escitalopram to 20 mg daily for anxiety SUBJECTIVE/OBJECTIVE: Peter Devi is a 63 year old male seen for a follow-up visit from 01/04 with Estella. Reason for visit: Diabetes follow up. Allergies/ADRs: Reviewed in chart Past Medical History: Reviewed in chart Tobacco: He reports that he quit smoking about 40 years ago. His smoking use included cigarettes. He has been exposed to tobacco smoke. He has never used smokeless tobacco. Alcohol: not currently using Medication Adherence/Access: Cost is a major barrier. Has been unable to keep a steady supply of Ozempic in the past. Is paying out of pocket for andre because he prefers it. Diabetes /Obesity Metformin XR 2000 mg daily with supper Ozempic - was prescribed last visit but not yet started Glipizide XL 10 mg daily - was instructed to increase to 20 mg daily last visit but not yet started. He reports no side effects. Current symptoms: He gets hot, shaky, and nauseous frequently (most likely due to anxiety) Diet/Exercise: Did not discuss in detail due to time. He did mention he starts eating a meal but nolonger feels very hungry after a few bites. Breakfast is usually a breakfast sandwich and banana. Previous visit: Drinking a lot of pop late at night, but has tried to be more mindful of caffeine content, drinking more 7-up, larisa, and propel. Eating mostly canned food, tuna and chicken salad a lot. Drives for work which hinders his ability to exercise regularly. Blood sugar monitoring: Continuous Glucose Monitor, fell off shortly after being placed on abdomen at last visit. Did not reapply any since. No blood glucose monitoring at home last 2 weeks. Today in clinic: fasting blood glucose 256 mg/dL Eye exam in the last 12 months? Yes- Date of last eye exam: 01/25/24, Location: [facility] Foot exam is up to date Mental Health Anxiety and Depression Escitalopram 10 mg once daily. Patient reports no current medication side effects. Worsened anxiety lately due to financial stressors and difficulties at home. Patient was anxious inclinic today after discussing high blood sugars, side effects, and stressors. Needed to sit and breathe for a while and get some cool air and water. Previous visit: He has had thoughts once or twice of wishing he were but reports he would not hurt himself in anyway and he wouldn't want this for his family. He is able to manage due to spending time with family and grandson. Patient was able to schedule a visit with a mental health provider outside of [facility], his appointment is this afternoon. Patient is not seeing a psychiatrist. Today's Vitals: BP 112/80 Wt 295 lb (133.8 kg) BMI 43.56 kg/m?? I spent 45 minutes with this patient today. All changes were made via collaborative practice agreement with Va Glez MD. A copy of the visit note was provided to the patient's provider(s). A summary of these recommendations was given to the patient. Roz Charles, ThomD Medication Therapy Management Office Technology Instructor Pager: [phone] Estella Hassan, ThomD, [facility] Medication Therapy Management Provider, [facility] [phone] Medication Therapy Recommendations Type 2 diabetes mellitus with hyperglycemia, without long-term current use of insulin (H) 1 Current Medication: Semaglutide, 2 MG/DOSE, (OZEMPIC) 8 MG/3ML pen Current Medication Sig: Inject 2 mg subcutaneously every 7 days Rationale: Does not understand instructions - Adherence - Adherence Recommendation: Provide Adherence Intervention Status: Patient Agreed - Adherence/Education Identified Date: 01/26/2024 Completed Date: 01/26/2024 NS CUTTER documented in this encounter Plan of Treatment Upcoming Encounters Date Type Department Care Team (Late st Contact Info) Description 02/01/2024 3:00 PM GREENS CUTTER Office Visit [address] [place] [phone] Manuel Ahn, [address] [place] [address] [place] [address] 02/02/2024 1:30 PM GREENS CUTTER Therapy Visit [facility] [address] [facility] [address] [place] [phone] Alicja Roldan OT [address] [place] [address] 02/05/2024 8:00 PM GREENS CUTTER Therapy Visit [facility] [place] [address] [place] [address] 103 [place] [phone] 02/13/2024 4:30 PM GREENS CUTTER Oncology Visit [facility] 909 [place] [phone] Marian Agustin, [facility] [address] [facility] [address] [place] [address] 03/01/2024 7:00 AM GREENS CUTTER Office Visit [facility] [address] [place] [phone] [facility] [address] [place] [address] 03/23/2024 2:00 PM GREENS CUTTER Office Visit [facility] [address] [place] [address] [place] [phone] Lizet Mann PA-C 717 [place] [address] 03/29/2024 3:30 PM GREENS CUTTER Office Visit [facility] 2945 [facility] 200 [place] [phone] Hakeem Chacko MBBS [address] [place] [address] 05/03/2024 3:00 PM GREENS CUTTER Office Visit [address] [address] Gaurav Valenzuela, [employer] ILLUSTRATOR [address] [place] [address] 106 [place] [address] 05/22/2024 10:30 AM CDT Office Visit [facility] [address] [place] [phone] Estella Hassan, [facility] [address] [place] [address] 05/22/2024 11:30 AM CDT Office Visit [facility] [address] [place] [phone] [place] Glez MD [id number] [place] [phone] documented as of this encounter Goals Goal [...] for health insurance by looking in to [employer] and talking with a FRW. Completed 3. I will look for a new job and will access resources that the [employer] offers. . Sarted new job 4. Continue [...] Due or Overdue 20%(01/27/20 24 7:55 AM GREENS CUTTER) No Mitra Kendall LSW Note: Barriers: Life [...] expresses financial resource strain 20%(01/27/20 7:56 AM GREENS CUTTER) Mitra Borja LSW Note: Barriers: Owe back [...] as of this encounter Visit Diagnoses Diagnosis Type 2 diabetes mellitus without complication, without long-term current use of insulin (H)- Primary Morbid obesity due to excess calories (H) Major depressive disorder, recurrent episode, moderate (H) Major depressive disorder, recurrent episode, moderate LUZ (generalized anxiety disorder) Generalized anxiety disorder documented in this encounter Additional Health Concerns [...] documented as of this encounter Care Teams Roller Bearing Inspector Relationship Specialty [place] [address] [place] [address] PCP - General Family Practice 07/11/14 [place] [address] [place] [address] Assigned PCP 12/16/11 Christy Campuzano PA-C [address] [place] [address] [id number] Referring Physician Family Medicine 04/22/20 Hans Cannon MD [address] [place] [address] 191472 Resident Pulmonary Disease 04/22/20 Estella Hassan, [facility] [address] [place], [place] [phone] Pharmacist Pharmacist 05/26/20 Elaina Moreno MD 909 [place] [address] Cardiovascular & Thoracic Surgery 08/06/20 John Webb MD [address] [address] Cardiovascular Disease 08/25/21 John Webb MD [address] [address] Cardiovascular Disease 08/25/21 Estella Hassan, [facility] [address] [place] [address] Assigned MTM Pharmacist 12/09/21 Lindsay Carey OD [address] [place] [address] Ophthalmology 01/29/22 Richard Kam MD [address] [place] [address] [id number] Assigned Musculoskeletal Provider 08/14/22 [place] [address] [place] [address] [address] Assigned Neuroscience Provider 01/01/23 Rosemarie Mcdowell, RN Tonal Regulator Diabetes Education 03/17/23 Mitra Kendall, [facility] Lead Triage Licensed Practical Nurse Primary Care - CC 12/12/23 Lizet Mann PA-C [address] [place] [address] [id number] Assigned Cancer Care Provider 01/04/24 Ravi Brownlee MD [address] [place] [address] 276 [place], [place] [phone] Assigned Pulmonology Provider 01/04/24 Nav Hughes MD [address] [place] [address] Assigned Heart and Vascular Provider 01/04/24 Manuel Ahn OD [address] [facility] [place] [address] Fitness And Wellness Coordinator 01/05/24 Arabella Fishman MA Financial Resource Worker 01/06/24 Thalia Charles [facility] Pharmacist Pharmacy 01/26/24 documented as of this encounter
--- OUTSIDE RECORDS SUMMARY | 2024-01-31 20:02 | XMS_ITS | Encounter Summary ---
Author Organization [facility] Address [address] [place] [address] Care Team Providers Care Industrial Waste Treatment Technician Name Role Phone Va Glez MD Primary Care Provider [phone] Va Glez MD Unavailable Christy Campuzano PAUniqueC Unavailable Hans Cannon MD Unavailable Estella Hassan [facility] Unavailable [phone] Josh Cordero MD, Madhuri Unavailable [phone] John Webb MD Unavailable John Webb MD Unavailable Estella Hassan [facility] Unavailable Lindsay Carey OD Unavailable [phone] Richard Kam MD Unavailable Gaby Vila DO Unavailable Rosemarie Mcdowell RN Unavailable Mitra Kendall TAX SERVICES INTERN Unavailable [phone] Lizet Mann PA-C Unavailable Ravi Brownlee MD Unavailable Nav Hughes MD Unavailable [phone] Manuel Ahn Kunal OD Unavailable Arabella Fishman MA Unavailable [phone] Reason for Visit * Diagnostic Imaging CT Scan (Routine) - Closed Specialty Diagnoses / Procedures Referred By Mireille gonzalez Referred To Contact Radiology. Diagnoses Mediastinal cyst Procedures CT Chest w contrast Marian Agustin APRN [facility] [address] [address] Phone: tel: fax: Referral ID Status Reason Start Date Expiration Date Visits Re quested Visits Authorized [id number] Closed 12/30/2023 12/29/2024 1 1 Encounter Details Date Type Department Care Team (Late st Contact Info) Description 01/12/2024 6:30 PM CDT Ancillary Procedure [facility] [address] 1[address] [place] [address] Marian Agustin APRN [address] [id number] Mediastinal cyst Social History Tobacco Use Types Packs/Day Years [...] re latives? Once a week 12/23/2023 Attends [employer] Not on file 12/22 Active Member [...] Answer Date Recorded PHQ-2 Score 2 12/23/2023 [facility] - Occupational Stress Questionnaire Answer Date [...] in an abandoned building, in an overnight halfway, 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.) Yes 12/23/2023 Are you worried [...] on file Legal 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 HABILITATION WORKER Gender Identity Not on file Sexual Orientation Not on file Occupation Industry Job Start Date Job End Date Not on file Not on file Not on file Not on file documented as of this encounter Plan of Treatment Upcoming Encounters Date Type Department Care Team (Late st Contact Info) Description 02/01/2024 3:00 PM HABILITATION WORKER Office Visit [facility] [address] [place] [phone] Manuel Ahn, [address] [place] [address] 02/02/2024 1:30 PM HABILITATION WORKER Therapy Visit [facility] [address] [facility] [address] [place] [phone] Alicja Roldan, OT [address]09 [place] [address] 02/05/2024 8:00 PM HABILITATION WORKER Therapy Visit [facility] [place] [address] [place] [address] 103 [place] [phone] 02/13/2024 4:30 PM HABILITATION WORKER [facility] 909 [place] [phone] Marian Agustin APRN PATCH FINISHER [address] [facility] [address] [place] [address] 03/01/2024 7:00 AM HABILITATION WORKER Office Visit [facility] [address] [place] [phone] Estella Hassan, [facility] 30[address] [place] [address] 03/23/2024 2:00 PM HABILITATION WORKER Office Visit [facility] [address] [place] [address] Lizet Mann PA-C 717 [place] [address] 03/29/2024 3:30 PM HABILITATION WORKER Office Visit [facility] 2945 [facility] 200 [place] [address] Hakeem Chacko MBBS 2945 [place] [address] 05/03/2024 3:00 PM HABILITATION WORKER Office Visit [facility] [place] [address] [place] [phone] Gaurav Valenzuela, SUSPENSION CORD TIER [facility] [address] [place] [address] 05/22/2024 10:30 AM CDT Office Visit [address] [phone] Estella Hassan, [facility] [address] [place] [address] 05/22/2024 11:30 AM CDT Office Visit [facility] [address] [place] [phone] [place] [address] [place], [place] [phone] documented as of this encounter Goals Goal Patient Goal Type Associated Problems Recent Progress Patient-Stated? Author Health Maintenance Care Plan HP GENERAL PROBLEM 100%( 023 10:17 AM CDT) No Mitra Kendall, TAX SERVICES INTERN Note: Update on 05/25/22 Barriers: Currently without [...] for health insurance by looking in to [employer] and talking with a FRW. Completed 3. I will look for a new job and will access resources that the Robert Applebaum MD offers. . Sarted new job 4. Continue [...] Due or Overdue 20%(01/27/20 24 7:55 AM HABILITATION WORKER) No Mitra Kendall LSW Note: Barriers: Life [...] financial resource strain 20%(01/27/20 24 7:56 AM HABILITATION WORKER) No Mitra Kendall LSW Note: Barriers: Owe back taxes Strengths: I am working, I receive Social Security Disability Patient expressed understanding of goal: Yes Action steps to achieve this goal: 1. I will work with W in applying for [facility] [place] 2. I will contact [employer] to ask if they have resources for owing back taxes documented as of this encounter Procedures Procedure Name Priority Date/Time Associated Diagnosis Comments CT CHEST W CONTRAST Routine 01/12/2024 5 :15 PM CDT Mediastinal cyst documented in this encounter Results * CT Chest w contrast (01/12/2024 5:15 [...] fluid similar to previous. 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 $Given 01/12/2024 5:02 PM CDT 100 mLs iopamidol (ISOVUE-370) solution 125 mL 125 mL, Intravenous, ONCE, On Annette 01/12/24 at 1700, For 1 dose $Given 01/12/2024 5:01 PM CDT 125 mLs documented in this encounter Additional Health Concerns [...] accurate information and submit it to the [facility]. 3. I will update CCC Team at outreach. HbA1C Not In Goal 04/28/2023 Diabetes Self-Management Edu cation Needed to Optimize Self-Care Behaviors 04/28/2023 Health Maintenance Due or Overdue 12/16/2023 Patient expresses financial resource strain 12/13 Assessment Noted Time PHQ-9 Depression Total Score: 9 12/23/19 24 12:36 PM CDT documented as of this encounter Care Teams Industrial Waste Treatment Technician Relationship Specialty [place] [address] [place] [address] PCP - General Family Practice 07/11/14 [place] [address] [place] [address] Assigned PCP 12/16/11 Christy Campuzano PA-C [address] [place] [address] 774902 Referring Physician Family Medicine 04/22/20 Hans Cannon MD [address] [place] [address] Resident Pulmonary Disease 04/22/20 Estella Hassan, [facility] [address] [place] [address] 550486 Pharmacist Pharmacist 05/26/20 Elaina Moreno MD [address] [place] [address] 975995 Cardiovascular & Thoracic Surgery 08/06/20 John Webb MD [address] [place] [place] 995485 Cardiovascular Disease 08/25/21 John Webb MD [address] [place] [id number] Cardiovascular Disease 08/25/21 Estella Hassan, [facility] [address] [place] [address] Assigned MTM Pharmacist 12/09/21 Lindsay Carey OD [address] [place] [address] [place] [address] Ophthalmology 01/29/22 Richard Kam MD [address] [place] [address] Assigned Musculoskeletal Provider 08/14/22 [place] [address] [place], [address] [address] Assigned Neuroscience Provider 01/01/23 Rosemarie Mcdowell, RN Computer Numerical Control Programmer Diabetes Education 03/17/23 Mitra Kendall, TAX SERVICES INTERN Lead Rapid Extractor Operator Primary Care - CC 12/12/23 Lizet Mann PA-C [address] [place] [address] [phone] Assigned Cancer Care Provider 01/04/24 Ravi Brownlee MD [address] [place] [address] 276 [place] [address] Assigned Pulmonology Provider 01/04/24 Nav Hughes MD 6[address] [facility] [place] [place] [address] Assigned Heart and Vascular Provider 01/04/24 Manuel Ahn OD 6341 [facility] [place] [address] [place] 01/05/24 Arabella Fishman MA Financial Resource Worker 01/06/24 documented as of this encounter
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
--- OUTSIDE RECORDS SUMMARY | 2024-01-31 20:02 | XMS_ITS | Encounter Summary ---
Author Organization [facility] Address [address] [place] [address] Care Team Providers Care Dry End Operator Name Role Phone Va Glez MD Primary Care Provider Va Glez MD Unavailable Christy Campuzano PAUniqueC Unavailable Hans Cannon MD Unavailable Estella Hassan [facility] Unavailable Josh Cordero MD, Madhuri Unavailable [phone] John Webb MD Unavailable John Webb MD Unavailable Estella Hassan [facility] Unavailable Lindsay Carey OD Unavailable Richard Kam MD Unavailable Gaby Vila DO Unavailable Rosemarie Mcdowell RN Unavailable Mitra Kendall LABEL STITCHER Unavailable [phone] Lizet Mann PA-C Unavailable Ravi Brownlee MD Unavailable [phone] Nav Hughes MD Unavailable [phone] Manuel Ahn OD Unavailable Arabella Fishman MA Unavailable [phone] Reason for Visit * Reason Comments Medication Refill Encounter Details Date Type Department Care Team (Late st Contact Info) Description 01/11/2024 Refill [facility] [address] [place] [phone] Kd Nolasco MD [address] [place] [address] Medication Refill Social History Tobacco Use Types Packs/Day Years [...] re latives? Once a week 12/23/2023 Attends Anabaptist Services Not on file 12/22 Active Member [...] Answer Date Recorded PHQ-2 Score 2 12/23/2023 [facility] of Occupat ional Health - Occupational Stress [...] on file Legal 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 ETL DATA ARCHITECT Gender Identity Not on file Sexual Orientation Not on file Occupation Industry Job Start Date Job End Date Not on file Not on file Not on file Not on file documented as of this encounter Plan of Treatment Upcoming Encounters Date Type Department Care Team (Late st Contact Info) Description 02/01/2024 3:00 PM ETL DATA ARCHITECT Office Visit [address] [place] [address] Manuel Ahn, [address] [place] [address] 02/02/2024 1:30 PM ETL DATA ARCHITECT Therapy Visit [facility] [place] [address] [facility] [address] [place] [phone] Alicja Roldan, OT 909 [place] [address] 02/05/2024 8:00 PM ETL DATA ARCHITECT Therapy Visit [facility] [place] 6363 [facility] 103 [place] [phone] 02/13/2024 4:30 PM ETL DATA ARCHITECT [facility]cology [facility] 909 [place] [phone] Marian Agustin, COLLEGE PRESIDENT [facility] 420 [facility] 207 [place] [address] 03/01/2024 7:00 AM ETL DATA ARCHITECT Office Visit [facility] [address] [place] [phone] Estella Hassan, [facility] 3033 [place] [address] 03/23/2024 2:00 PM ETL DATA ARCHITECT Office Visit [facility] [address] [place] [address] [place] [phone] Lizet Mann PA-C 717 [place] [address] 03/29/2024 3:30 PM ETL DATA ARCHITECT Office Visit [facility] 2945 [facility] [address] [place] [phone] Hakeem Chacko MBBS 2945 [place] [address] 05/03/2024 3:00 PM ETL DATA ARCHITECT Office Visit [place] [address] [place] [phone] Gaurav Valenzuela, [facility] [address] 566984 05/22/2024 10:30 AM CDT Office Visit [facility] [address] [place] [address] Estella Hassan, [facility] 3033 [place] [address] 05/22/2024 11:30 AM CDT Office Visit [facility] [address] [place] [phone] [place] [address] [place] [address] documented as of this encounter [...] strain 100%( 023 10:17 AM CDT) No Enoch, Mitra K, LABEL STITCHER Note: Updated on 05/25/22 Barriers: Currently not working.Doesn't have insurance Strengths: Getting SSD. Patient expressed understanding of goal: Action steps to achieve this goal: 1. I will apply for unemployment. Decided not to 2. I will explore my options for health insurance by looking in to [employer] and talking with a FRW. Completed 3. I will look for a new job and will access resources that the [employer] offers. . Sarted new job 4. Continue [...] Due or Overdue 20%(01/27/20 24 7:55 AM ETL DATA ARCHITECT) No Mitra Kendall LSW Note: Barriers: Life [...] financial resource strain 20%(01/27/20 24 7:56 AM ETL DATA ARCHITECT) No Mitra Kendall LSW Note: Barriers: Owe [...] as of this encounter Visit Diagnoses Diagnosis Subacute cough Cough documented in this encounter Additional Health Concerns [...] documented as of this encounter Care Teams Dry End Operator Relationship Specialty [place] [address] [place] [address] PCP - General Family Practice 07/11/14 [place] [address] [place] [address] Assigned PCP 12/16/11 Christy Campuzano PA-C [address] [place] [address] [phone] Referring Physician Family Medicine 04/22/20 Hans Cannon MD [address] [place] [address] 291972 Resident Pulmonary Disease 04/22/20 Estella Hassan, [facility] [address] [place], [place] 178656 Pharmacist Pharmacist 05/26/20 Elaina Moreno MD 909 [place], [place] 353175 Cardiovascular & Thoracic Surgery 08/06/20 John Webb MD [address] [place] [address] Cardiovascular Disease 08/25/21 John Webb MD [address] [place] [place] [address] Cardiovascular Disease 08/25/21 Estella Hassan, [facility] [address] [place] [address] Assigned MTM Pharmacist 12/09/21 Lindsay Carey OD [address] [place] [address] Ophthalmology 01/29/22 Richard Kam MD [address] [place] [address] [phone] Assigned Musculoskeletal Provider 08/14/22 [place] [address] [address] Assigned Neuroscience Provider 01/01/23 Rsoemarie Mcdowell, RN Program Director/Morning Show Host Diabetes Education 03/17/23 Mitra Kendall, [facility] Lead Lens Engraver Primary Care - CC 12/12/23 Lizet Mann PA-C [address] [place] [address] [phone] Assigned Cancer Care Provider 01/04/24 Ravi Brownlee MD [address] [place] [address] 276 [place], [place] 528665 Assigned Pulmonology Provider 01/04/24 Nav Hughes MD [address] [place] [address] Assigned Heart and Vascular Provider 01/04/24 Manuel Ahn OD 6341 [facility] [place] [place] [address] Rack Production Worker 01/05/24 Arabella [place] MA Financial Resource Worker 01/06/24 documented as of this encounter
--- OUTSIDE RECORDS SUMMARY | 2024-01-31 20:02 | XMS_ITS | Encounter Summary ---
Author Organization [facility] Address [address] [place] [address] Care Team Providers Care Slipper Maker Name Role Phone Va Glez MD Primary Care Provider [phone] Va Glez MD Unavailable Christy Campuzano PAUniuqeC Unavailable [phone] Hans Cannon MD Unavailable [phone] Estella Hassan [facility] Unavailable [phone] Josh Cordero MD, Madhuri Unavailable [phone] Jhon Webb MD Unavailable [phone] John Webb MD Unavailable Estella Hassan [facility] Unavailable Lindsay Carey OD Unavailable Richard Kam MD Unavailable Gaby Vila DO Unavailable [phone] Rosemarie Mcdowell RN Unavailable [phone] Mitra Kendall BLACKING WHEEL TENDER Unavailable [phone] Lizet Mann PA-C Unavailable Ravi Brownlee MD Unavailable Nav Hughes MD Unavailable [phone] Manuel Ahn OD Unavailable Arabella Fishman MA Unavailable [phone] Reason for Visit * Reason Comments Medication Refill Encounter Details Date Type Department Care Team (Late st Contact Info) Description 01/22/2024 Refill [facility] 6341 [facility] [place] [phone] Estella Morales MD [address] [facility] [place] [address] Medication Refill Social History Tobacco Use Types [...] re latives? Once a week 12/23/2023 Attends Gnosticist Services Not on file 12/22 Active Member [...] Answer Date Recorded PHQ-2 Score 2 12/23/2023 [facility] of Occupat ional Health - Occupational Stress [...] in an abandoned building, in an overnight prison, 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.) Yes 12/23/2023 Are you worried [...] on file Legal 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 WATER TREATMENT PLANT SUPERVISOR Gender Identity Not on file Sexual Orientation Not on file Occupation Industry Job Start Date Job End Date Not on file Not on file Not on file Not on file documented as of this encounter Plan of Treatment Upcoming Encounters Date Type Department Care Team (Late st Contact Info) Description 02/01/2024 3:00 PM WATER TREATMENT PLANT SUPERVISOR [facility] 6341 [facility] [place] [place] [address] Manuel Ahn, 6341 [place] [address] 02/02/2024 1:30 PM WATER TREATMENT PLANT SUPERVISOR Therapy Visit [facility] [place] [address] [facility] [address] [place] [phone] Alicja Roldan, OT 909 [place] [address] 02/05/2024 8:00 PM WATER TREATMENT PLANT SUPERVISOR Therapy Visit [facility] [place] 6363 [facility] 103 [place] [phone] 02/13/2024 4:30 PM WATER TREATMENT PLANT SUPERVISOR [facility]cology [facility] 909 [place] [phone] Marian Agustin, WET END TESTER [facility] 420 [facility] 207 [place] [address] 03/01/2024 7:00 AM WATER TREATMENT PLANT SUPERVISOR Office Visit [facility] [address] [place] [phone] Estella Hassan, [facility] 3033 [place] [address] 03/23/2024 2:00 PM WATER TREATMENT PLANT SUPERVISOR Office Visit [facility] [address] [place] [address] [place] [phone] Lizet Mann PA-C [address] [facility] [place] [address] 03/29/2024 3:30 PM WATER TREATMENT PLANT SUPERVISOR Office Visit [facility] 2945 [facility] [address] [place] [phone] Hakeem Chacko MBBS 2945 [place] [address] 05/03/2024 3:00 PM WATER TREATMENT PLANT SUPERVISOR Office Visit [address] [place] [phone] Gaurav Valenzuela, WET END TESTER [facility] [address] [place] [address] 05/22/2024 10:30 AM CDT Office Visit [facility] [address] [place] [address] Estella Hassan, [facility] 3033 [place] [address] 05/22/2024 11:30 AM CDT Office Visit [facility] [address] [place] [phone] [place] [address] [place] [address] documented as of this encounter Goals Goal Patient Goal Type Associated Problems Recent Progress Patient-Stated? Author Health Maintenance Care Plan HP GENERAL PROBLEM 100%( 023 10:17 AM CDT) No Mitra Kendall, BLACKING WHEEL TENDER Note: Update on 05/25/22 Barriers: Currently without [...] 023 10:17 AM CDT) No Mitra Kendall, BLACKING WHEEL TENDER Note: Updated on 05/25/22 Barriers: Currently not working.Doesn't have insurance Strengths: Getting SSD. Patient expressed understanding of goal: Action steps to achieve this goal: 1. I will apply for unemployment. Decided not to 2. I will explore my options for health insurance by looking in to [employer] and talking with a FRW. Completed 3. I will look for a new job and will access resources that the [employer] offers. . Sarted new job 4. Continue [...] Needed to Optimize Self-Care Behaviors No Rosemarie Mcdowell, RN Become up-to-date with health maintenance visit(s) Care Plan Health Maintenance Due or Overdue 20%(01/27/20 24 7:55 AM WATER TREATMENT PLANT SUPERVISOR) No Mitra Kendall LSW Note: Barriers: Life [...] financial resource strain 20%(01/27/20 24 7:56 AM WATER TREATMENT PLANT SUPERVISOR) No Mitra Kendall LSW Note: Barriers: Owe [...] Visit Diagnoses Diagnosis Moderate persistent asthma without complication Unspecified asthma documented in this encounter Additional [...] accurate information and submit it to the [facility]. 3. I will update CCC Team at outreach. HbA1C Not In Goal 04/28/2023 Diabetes Self-Management Edu cation Needed to Optimize Self-Care Behaviors 04/28/2023 Health Maintenance Due or Overdue 12/16/2023 Patient expresses financial resource strain 12/13 Assessment Noted Time PHQ-9 Depression Total Score: 9 12/23/19 24 12:36 PM CDT documented as of this encounter Care Teams Slipper Maker Relationship Specialty [place] [address] [place] [address] PCP - General Family Practice 07/11/14 [place] [address] [place] [address] Assigned PCP 12/16/11 Christy Campuzano PA-C [address] [place] [address] [id number] Referring Physician Family Medicine 04/22/20 Hans Cannon MD [address] [place] [address] 036312 Resident Pulmonary Disease 04/22/20 Estella Hassan, [facility] [address] [place], [place] [address] Pharmacist Pharmacist 05/26/20 Elaina Moreno MD 909 [place], [place] 304455 Cardiovascular & Thoracic Surgery 08/06/20 John Webb MD [address] [address] Cardiovascular Disease 08/25/21 John Webb MD [address] [place] 771515 Cardiovascular Disease 08/25/21 Estella Hassan, [facility] [address] [place] [address] Assigned MTM Pharmacist 12/09/21 Lindsay Carey OD [address] [facility] [place] [address] Ophthalmology 01/29/22 Richard Kam MD [address] [place] [address] [phone] Assigned Musculoskeletal Provider 08/14/22 [place] [address] [place] , [address] [address] Assigned Neuroscience Provider 01/01/23 Rosemarie Mcdowell, RN Industrial Gas Fitter Helper Diabetes Education 03/17/23 Mitra Kendall, BLACKING WHEEL TENDER Lead Pharmacy General Manager Primary Care - CC 12/12/23 Lizet Mann PA-C [address] [place] [address] [id number] Assigned Cancer Care Provider 01/04/24 Ravi Brownlee MD [address] [place] [address] 276 [place], [place] 055375 Assigned Pulmonology Provider 01/04/24 Nav Hughes MD 6405 [facility] [address] [place] [address] Assigned Heart and Vascular Provider 01/04/24 Manuel Ahn OD 6341 [facility] [address] [place] [address] Barker Operator 01/05/24 Arabella [place] MA Financial Resource Worker 01/06/24 documented as of this encounter
--- OUTSIDE RECORDS SUMMARY | 2024-01-31 20:02 | XMS_ITS | Encounter Summary ---
Author Organization [employer] Address [address] [place] [address]02 Care Team Providers Care Power Transmission Engineer Name Role Phone Va Glez MD Primary Care Provider Va Glez MD Unavailable Christy Campuzano PAUniqueC Unavailable Hans Cannon MD Unavailable [phone] Estella Hassan [facility] Unavailable Josh Cordero MD, Madhuri Unavailable [phone] John Webb MD Unavailable [phone] John Webb MD Unavailable Estella Hassan [facility] Unavailable Lindsay Carey OD Unavailable Richard Kam MD Unavailable Gaby Vila DO Unavailable Rosemarie Mcdowell RN Unavailable Mitra Kendall FELT FINISHER Unavailable [phone] Lizet Mann PA-C Unavailable Ravi Brownlee MD Unavailable aNv Hughes MD Unavailable [phone] Manuel Ahn OD Unavailable Arabella Fishman MA Unavailable [phone] Thalia Charles [facility] Unavailable Unavailable Reason for Visit * Reason Comments Medication Refill Encounter Details Date Type Department Care Team (Late st Contact Info) Description 01/19/2024 Refill [facility] 6341 [facility] [place] [phone] Estella Morales MD 3252 [facility] [place] [address] Medication Refill Social History Tobacco Use Types [...] re latives? Once a week 12/23/2023 Attends [employer] Not on file 12/22 Active Member [...] Answer Date Recorded PHQ-2 Score 2 12/23/2023 [facility] of Occupat ional Health - Occupational Stress [...] in an abandoned building, in an overnight fci, 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.) Yes 12/23/2023 Are you worried [...] on file Legal 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 PSYCHIATRIC SOCIAL WORKER SUPERVISOR Gender Identity Not on file Sexual Orientation Not on file Occupation Industry Job Start Date Job End Date Not on file Not on file Not on file Not on file documented as of this encounter Plan of Treatment Upcoming Encounters Date Type Department Care Team (Late st Contact Info) Description 02/01/2024 3:00 PM PSYCHIATRIC SOCIAL WORKER SUPERVISOR Office Visit [facility] [place] 6341 [facility] [phone] [facility] [place] [address] 02/02/2024 1:30 PM PSYCHIATRIC SOCIAL WORKER SUPERVISOR Therapy Visit [facility] [address] [facility] [address] [place] [phone] Alicja Roldan, OT 909 [place] [address] 02/05/2024 8:00 PM PSYCHIATRIC SOCIAL WORKER SUPERVISOR Therapy Visit [facility] [place] 6363 [facility] 103 [place] [phone] 02/13/2024 4:30 PM PSYCHIATRIC SOCIAL WORKER SUPERVISOR Oncology Visit [facility] 909 [place] [phone] Marian Agustin, INSTRUMENT CHECKER GLOBAL POSITION SYSTEM TECHNICIAN 420 [facility] 207 [place], [place] [address] 03/01/2024 7:00 AM PSYCHIATRIC SOCIAL WORKER SUPERVISOR Office Visit [facility] [address] [place] [phone] Estella Hassan, [facility] 3033 [place] [address] 03/23/2024 2:00 PM PSYCHIATRIC SOCIAL WORKER SUPERVISOR Office Visit [facility] [address] [address] [place] [phone] Lizet Mann PA-C 717 [place] [address] 03/29/2024 3:30 PM PSYCHIATRIC SOCIAL WORKER SUPERVISOR Office Visit [facility] 2945 [facility] [address] [place] [address] Hakeem Chacko MBBS 2945 [place] [address] 05/03/2024 3:00 PM PSYCHIATRIC SOCIAL WORKER SUPERVISOR Office Visit [address] [phone] Gaurav Valenzuela, INSTRUMENT CHECKER [facility] [address] [place] [address] 05/22/2024 10:30 AM CDT Office Visit [facility] [address] [place] [phone] Estella Hassan, [facility] 3033 [place] [address] 05/22/2024 11:30 AM CDT Office Visit [facility] [address] [place] [phone] [place] [id number] [place] [address] documented as of this encounter Goals Goal Patient Goal Type Associated Problems Recent Progress Patient-Stated? Author Health Maintenance Care Plan HP GENERAL PROBLEM 100%( 023 10:17 AM CDT) No Mitra Kendall, FELT FINISHER Note: Update on 05/25/22 Barriers: Currently without [...] 023 10:17 AM CDT) No Mitra Kendall, FELT FINISHER Note: Updated on 05/25/22 Barriers: Currently not working.Doesn't have insurance Strengths: Getting SSD. Patient expressed understanding of goal: Action steps to achieve this goal: 1. I will apply for unemployment. Decided not to 2. I will explore my options for health insurance by looking in to [employer] and talking with a FRW. Completed 3. I will look for a new job and will access resources that the [employer] offers. . Sarted new job 4. Continue [...] Due or Overdue 20%(01/27/20 24 7:55 AM PSYCHIATRIC SOCIAL WORKER SUPERVISOR) No Mitra Kendall LSW Note: Barriers: [...] financial resource strain 20%(01/27/20 24 7:56 AM PSYCHIATRIC SOCIAL WORKER SUPERVISOR) No Mitra Kendall LSW Note: Barriers: [...] as of this encounter Visit Diagnoses Diagnosis SOB (shortness of breath) Shortness of breath Moderate persistent asthma without complication Unspecified asthma [...] documented as of this encounter Care Teams Power Transmission Engineer Relationship Specialty [place] [address] [place] [address] PCP - General Family Practice 07/11/14 [place] [address] [place] [address] Assigned PCP 12/16/11 Christy Campuzano PA-C [address] [place] [address] 710952 Referring Physician Family Medicine 04/22/20 Hans Cannon MD [address] [place] [address] Resident Pulmonary Disease 04/22/20 Estella Hassan, [facility] [address] [place], [place] 799[address] Pharmacist Pharmacist 05/26/20 Elaina Moreno MD 9 [place], [place] 867205 Cardiovascular & Thoracic Surgery 08/06/20 John Webb MD [address] [place] 10[address]15 Cardiovascular Disease 08/25/21 John Webb MD [address] [place] 246545 Cardiovascular Disease 08/25/21 Estella Hassan, [facility] [address] [place], [place] 631176 Assigned MTM Pharmacist 12/09/21 Lindsay Carey OD [address] [facility] [address] [place] [id number] Ophthalmology 01/29/22 Richard Kam MD 500 [place], [place] 018915 Assigned Musculoskeletal Provider 08/14/22 [place] [address] [place] , [address] 616977 Assigned Neuroscience Provider 01/01/23 Rosemarie Mcdowell, RN Dredge Pipe Installer Diabetes Education 03/17/23 Mitra Kendall, FELT FINISHER Lead Manager Massage Department Primary Care - CC 12/12/23 Lizet Mann PA-C 717 [place], [place] 033555 Assigned Cancer Care Provider 01/04/24 Ravi Brownlee MD 420 [facility] 276 [place], [place] 104065 Assigned Pulmonology Provider 01/04/24 Nav Hughes MD [address] [place] [address] [place] [place] [address] Assigned Heart and Vascular Provider 01/04/24 Manuel Ahn OD [address] [place] [address] Dry Plasterer 01/05/24 Arabella Fishman MA Financial Resource Worker 01/06/24 Thalia Charles [facility] Pharmacist Pharmacy 01/26/24 documented as of this encounter
--- OUTSIDE RECORDS SUMMARY | 2024-01-31 20:02 | XMS_ITS | Encounter Summary ---
Author Organization [place] Address [address] [place] [address] Care Team Providers Care Call Center Supervisor Name Role Phone Va Glez MD Primary Care Provider Va Glez MD Unavailable Christy Campuzano PAUniqueC Unavailable Hans Cannon MD Unavailable Estella Hassan [facility] Unavailable [phone] Josh Cordero MD, Madhuri Unavailable [phone] John Webb MD Unavailable John Webb MD Unavailable Estella Hassan [facility] Unavailable [phone] Lindsay Carey OD Unavailable Richard Kam MD Unavailable Gaby Vila DO Unavailable [phone] Rosemarie Mcdowell RN Unavailable Mitra Kendall SHOW HORSE DRIVER Unavailable Lizet Mann PA-C Unavailable Ravi Brownlee MD Unavailable Nav Hughes MD Unavailable [phone] Manuel Ahn OD Unavailable Arabella Fishman MA Unavailable [phone] Encounter Details Date Type Department Care Team (Latest Contact Info) Description 01/12/2024 Travel Social History Tobacco Use Types Packs/Day [...] re latives? Once a week 12/23/2023 Attends [employer] Not on file 12/22 Active Member [...] Answer Date Recorded PHQ-2 Score 2 12/23/2023 [facility] of Occupat ional Health - Occupational Stress [...] on file Legal 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 LIFE SKILLS COORDINATOR Gender Identity Not on file Sexual Orientation Not on file Occupation Industry Job Start Date Job End Date Not on file Not on file Not on file Not on file documented as of this encounter Plan of Treatment Upcoming Encounters Date Type Department Care Team (Late st Contact Info) Description 02/01/2024 3:00 PM LIFE SKILLS COORDINATOR Office [facility] [place] 0174 [facility] [place] [address] Manuel Ahn, 9262 [facility] [place] [address] 02/02/2024 1:30 PM LIFE SKILLS COORDINATOR Therapy Visit [facility] [address] [facility] [address] [place] [address] Alicja Roldan, BETY 909 [place] [address] 02/05/2024 8:00 PM LIFE SKILLS COORDINATOR Therapy Visit [facility] [place] 6363 [facility] 103 [place] [phone] 02/13/2024 4:30 PM LIFE SKILLS COORDINATOR Oncology Visit [facility] 909 [place] [phone] Marian Agustin APRN [facility] 420 [facility] 207 [place] [address] 03/01/2024 7:00 AM LIFE SKILLS COORDINATOR Office [facility] [address] [place] [phone] Estella Hassan, [facility] 3033 [place] [address] 03/23/2024 2:00 PM LIFE SKILLS COORDINATOR Office Visit [facility] [address] [place] [phone] Lizet Mnan PA-C 717 [place] [address] 03/29/2024 3:30 PM LIFE SKILLS COORDINATOR Office Visit [facility] 2945 [facility] 200 [place] [phone] Hakeem Chacko MBBS 2945 [place] [address] 05/03/2024 3:00 PM LIFE SKILLS COORDINATOR Office Visit [facility] Sleep [facility] 606 [address] [phone] Gaurav Valenzuela, COMMUNITY ORGANIZATION WORKER MARINE FITTER [address] [place] 106 [place] [address] 05/22/2024 10:30 AM CDT Office [facility] [address] [place] [phone] Estella Hassan, [facility] [address] [place] [address] 05/22/2024 11:30 AM CDT Office [facility] [address] [place] [address] [place] [address] [place], [place] [phone] documented as of this encounter Goals Goal [...] for health insurance by looking in to [employer] and talking with a FRW. Completed 3. I will look for a new job and will access resources that the [employer] offers. . Sarted new job 4. Continue [...] Due or Overdue 20%(01/27/20 24 7:55 AM LIFE SKILLS COORDINATOR) No Mitra Kendall LSW Note: Barriers: [...] expresses financial resource strain 20%(01/27/20 7:56 AM LIFE SKILLS COORDINATOR) Mitra Borja, SHOW HORSE DRIVER Note: Barriers: Owe back taxes Strengths: I am working, I receive Social Security Disability Patient expressed understanding of goal: Yes Action steps to achieve this goal: 1. I will work with FRW in applying for [facility] Care 2. I will contact [...] accurate information and submit it to the [facility]. 3. I will update CCC Team at outreach. HbA1C Not In Goal 04/28/2023 Diabetes Self-Management Edu cation Needed to Optimize Self-Care Behaviors 04/28/2023 Health Maintenance Due or Overdue 12/16/2023 Patient expresses financial resource strain 12/13 Assessment Noted Time PHQ-9 Depression Total Score: 9 12/23/19 24 12:36 PM CDT documented as of this encounter Care Teams Call Center Supervisor Relationship Specialty [place] [address] [place] [address] PCP - General Family Practice 07/11/14 [place] [address] [place] [address] Assigned PCP 12/16/11 Christy Campuzano PA-C [address] [place] [address] 007442 Referring Physician Family Medicine 04/22/20 Hans Cannon MD [address] [place] [address] Resident Pulmonary Disease 04/22/20 Estella Hassan, [facility] [employer] [address] Pharmacist Pharmacist 05/26/20 Elaina Moreno MD [address] [place] [address] Cardiovascular & Thoracic Surgery 08/06/20 John Webb MD 6405 [address] [place] 942015 Cardiovascular Disease 08/25/21 John Webb MD [address] [place] [place] 138505 Cardiovascular Disease 08/25/21 Estella Hassan, [facility] [employer] [place] [address] Assigned MTM Pharmacist 12/09/21 Lindsay Carey, OD [address] [facility] [address] [place] [id number] Ophthalmology 01/29/22 Richard Kam MD [address] [place] [address] 277335 Assigned Musculoskeletal Provider 08/14/22 [place] [address] [place] , [address] 676117 Assigned Neuroscience Provider 01/01/23 Rosemarie Mcdowell, RN Tailing Hand Diabetes Education 03/17/23 Mitra Kendall, SHOW HORSE DRIVER Lead Cardiovascular Technologist Primary Care - CC 12/12/23 Lizet Mann PA-C 717 [place] [address] Assigned Cancer Care Provider 01/04/24 Ravi Brownlee MD 420 [facility] 276 [place], [place] 248605 Assigned Pulmonology Provider 01/04/24 Nav Hughes MD [address] [place] 570505 Assigned Heart and Vascular Provider 01/04/24 Manuel Ahn OD [address]341 [address] [place] 787002 Ripsaw Matcher 01/05/24 Arabella Fishman MA Financial Resource Worker 01/06/24 documented as of this encounter
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
--- OUTSIDE RECORDS SUMMARY | 2024-01-31 20:02 | XMS_ITS | Encounter Summary ---
Author Organization [facility] Address [address] [place] [address] Care Team Providers Care Director Outcomes Name Role Phone Va Glez MD Primary Care Provider [phone] Va Glez MD Unavailable Christy Campuzano PAUniqueC Unavailable Hans Cannon MD Unavailable [phone] Estella Hassan [facility] Unavailable [phone] Josh Cordero MD, Madhuri Unavailable [phone] John Webb MD Unavailable John Webb MD Unavailable [phone] Estella Hassan [facility] Unavailable Lindsay Carey OD Unavailable [phone] Richard Kam MD Unavailable Gaby Vila DO Unavailable [phone] Rosemarie Mcdowell RN Unavailable Mitra Kendall MARKETING TEACHER Unavailable Lizet Mann PA-C Unavailable [phone] Ravi Brownlee MD Unavailable Nav Hughes MD Unavailable [phone] Manuel Ahn OD Unavailable Arabella Fishman MA Unavailable Thalia Charles [facility] Unavailable Unavailable Encounter Details Date Type Department Care Team (Late st Contact Info) Description 01/16/2024 MyC Medical Advice [facility] Specialty [address] [address] Dino Ponce RN Social History Tobacco Use Types Packs/Day [...] Answer Date Recorded PHQ-2 Score 2 12/23/2023 [facility] [place] of Occupat ional Health - Occupational Stress [...] on file Legal 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 COMPANY DOCTOR Gender Identity Not on file Sexual Orientation Not on file Occupation Industry Job Start Date Job End Date Not on file Not on file Not on file Not on file documented as of this encounter Plan of Treatment Upcoming Encounters Date Type Department Care Team (Late st Contact Info) Description 02/01/2024 3:00 PM COMPANY DOCTOR Office Visit [facility] [place] [address] [place] [address] [place] [address] Manuel Ahn, OD 9633 [facility] [place] [address] 02/02/2024 1:30 PM COMPANY DOCTOR Therapy Visit [facility] [address] [facility] [address] [place] [phone] Alicja Roldan, OT 909 [place] [address] 02/05/2024 8:00 PM COMPANY DOCTOR Therapy Visit [facility] [place] 6363 [facility] 103 [place] [phone] 02/13/2024 4:30 PM COMPANY DOCTOR Oncology Visit [facility] 909 [place] [phone] Marian Agustin, BRAID FOLDER [facility] 420 [facility] 207 [place] [address] 03/01/2024 7:00 AM COMPANY DOCTOR Office Visit [facility] [address] [place] [phone] Estella Hassan, [facility] 3033 [place] [address] 03/23/2024 2:00 PM COMPANY DOCTOR Office [facility] [address] [place] [address] [place] [phone] Lizet Mann PA-C 717 [place] [address] 03/29/2024 3:30 PM COMPANY DOCTOR Office Visit [facility] [address] [place] [phone] Hakeem hCacko MBBS 2945 [place] [address] 05/03/2024 3:00 PM COMPANY DOCTOR Office Visit [address] [phone] Gaurav Valenzuela, N[facility]SA [facility] [address] [place] [address] 106 [place] [address] 05/22/2024 10:30 AM CDT Office Visit [facility] [address] [place] [phone] Estella Hassan, [facility] 3033 [place] [address] 05/22/2024 11:30 AM CDT Office Visit [address] [address] [place] [address] [place] [address] [phone] documented as of this encounter Goals Goal [...] my yearly preventive visit. 4. [facility] as I currently am without insurance.Going to [...] job and will access resources that the [employer] offers. . Sarted new job 4. Continue [...] Due or Overdue 20%(01/27/20 24 7:55 AM COMPANY DOCTOR) No Mitra Kendall LSW Note: Barriers: Life [...] financial resource strain 20%(01/27/20 24 7:56 AM COMPANY DOCTOR) No Mitra Kendall LSW Note: Barriers: Owe back taxes Strengths: I am working, I receive Social Security Disability Patient expressed understanding of goal: Yes Action steps to achieve this goal: 1. I will work with FRW in applying for [facility] Care 2. I will contact [facility] [...] as of this encounter Care Teams Director Outcomes Relationship Specialty [place] [address] [place] [address] PCP - General Family Practice 07/11/14 [place] [address] [place] [address] Assigned PCP 12/16/11 Christy Campuzano PA-C [address] [place] [address] 370352 Referring Physician Family Medicine 04/22/20 Hans Cannon MD [address] [place] [address] Resident Pulmonary Disease 04/22/20 Estella Hassan, [facility] 3033 [place], [place] 211086 Pharmacist Pharmacist 05/26/20 Elaina Moreno MD [address] [place] [address] 600225 Cardiovascular & Thoracic Surgery 08/06/20 John Webb MD 6405 [address] 672955 Cardiovascular Disease 08/25/21 John Webb MD [address] 668775 Cardiovascular Disease 08/25/21 Estella Hassan, [facility] [address] [place], [place] 2998[address] Assigned MTM Pharmacist 12/09/21 Lindsay Carey OD [address] [facility] [place] [address] Ophthalmology 01/29/22 Richard Kam MD 500 [place], [place] 203825 Assigned Musculoskeletal Provider 08/14/22 [place] [address] BC PENA, [address] 638967 Assigned Neuroscience Provider 01/01/23 Rosemarie Mcdowell, RN Report Writer Diabetes Education 03/17/23 Mitra Kendall, MARKETING TEACHER Lead Jumpbasting Machine Operator Primary Care - CC 12/12/23 Lizet Mann PA-C 717 [place], [place] 136085 Assigned Cancer Care Provider 01/04/24 Ravi Brownlee MD 420 [facility] 276 [place], [place] 463145 Assigned Pulmonology Provider 01/04/24 Nav Hughes MD 6[address] SHANKAR [place]AYES 448445 Assigned Heart and Vascular Provider 01/04/24 Manuel Ahn OD 6341 [facility] [address] Gift Shop Clerk 01/05/24 Arabella Fishman MA Financial Resource Worker 01/06/24 Thalia Charles RPH Pharmacist Pharmacy 01/26/24 documented as of this encounter
--- OUTSIDE RECORDS SUMMARY | 2024-01-31 20:02 | XMS_ITS | Encounter Summary ---
Author Organization [facility] Address [address] [place] [address] Care Team Providers Care Housing Quality Standard Inspector Name Role Phone Va Glez MD Primary Care Provider [phone] Va Glez MD Unavailable Christy Campuzano PAUniqueC Unavailable Hans Cannon MD Unavailable Estella Hassan [facility] Unavailable Josh Cordero MD, Madhuri Unavailable [phone] John Webb MD Unavailable John Webb MD Unavailable [phone] Estella Hassan [facility] Unavailable [phone] Lindsay Carey OD Unavailable Richard Kam MD Unavailable Gaby Vila DO Unavailable Rosemarie Mcdowell RN Unavailable Mitra Kendall MOBILE ENGINEER Unavailable Lizet Mann PA-C Unavailable Ravi Brownlee MD Unavailable [phone] Nav Hughes MD Unavailable [phone] Manuel Ahn OD Unavailable [phone] Arabella Fishman MA Unavailable [phone] Encounter Details Date Type Department Care Team (Late st Contact Info) Description 01/13/2024 2:00 PM CDT Office Visit [facility] [address] [address] Moderate persistent asthma without complication Social History Tobacco Use Types Packs/Day Years [...] re latives? Once a week 12/23/2023 Attends [employer] Not on file 12/22 Active Member [...] Answer Date Recorded PHQ-2 Score 2 12/23/2023 [facility] [place] of Occupat ional Health - Occupational Stress [...] in an abandoned building, in an overnight penitentiary, 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.) Yes 12/23/2023 Are you worried [...] on file Legal 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 BASKETBALL COMMENTATOR Gender Identity Not on file Sexual Orientation Not on file Occupation Industry Job Start Date Job End Date Not on file Not on file Not on file Not on file documented as of this encounter Progress Notes * Daniel Stover RT - 01/13/2024 2:00 PM CDT Peter Devi comes into clinic today at the request of Lizet Mann PA-C Ordering Provider for6 minute walk RT Raffaele documented in this encounter Plan of Treatment Upcoming Encounters Date Type Department Care Team (Late st Contact Info) Description 02/01/2024 3:00 PM BASKETBALL COMMENTATOR Office Visit [facility] 6341 [place] [phone] Manuel Ahn, OD 6341 [place] [address] 02/02/2024 1:30 PM BASKETBALL COMMENTATOR Therapy Visit [facility] [place] [address] [facility] [address] [place] [phone] Alicja Roldan, OT 909 [place] [address] 02/05/2024 8:00 PM BASKETBALL COMMENTATOR Therapy Visit [facility] [place] 6363 [facility] 103 [place] [phone] 02/13/2024 4:30 PM BASKETBALL COMMENTATOR Oncology Visit [facility] 909 [place] [phone] Marian Agustin, NESSA BEEF CATTLE FARMER 420 [facility] 207 [place] [address] 03/01/2024 7:00 AM BASKETBALL COMMENTATOR Office Visit [facility] [address] [place] [phone] Estella Hassan, [facility] 3033 [place] [address] 03/23/2024 2:00 PM BASKETBALL COMMENTATOR Office Visit [facility] [address] [place] [phone] Lizet Mann PA-C 717 [place] [address] 03/29/2024 3:30 PM BASKETBALL COMMENTATOR Office Visit [facility] 2945 [facility] [address] [place] [address] Hakeem Chacko MBBS 2945 [place] [address] 05/03/2024 3:00 PM BASKETBALL COMMENTATOR Office Visit [facility] [address] [address] Gaurav Valenzuela, NESSA [address] 0133[address] 05/22/2024 10:30 AM CDT Office Visit [address] [phone] Estella Hassan, [facility] 3033 [place] [address] 05/22/2024 11:30 AM CDT Office Visit [address] [phone] [place] [address] [place], [place] [phone] documented as of this encounter Goals Goal Patient Goal Type Associated Problems Recent Progress Patient-Stated? Author Health Maintenance Care Plan HP GENERAL PROBLEM 100%( 023 10:17 AM CDT) No Mitra Kendall, SILVER Note: Update on 05/25/22 Barriers: Currently without [...] for health insurance by looking in to [employer] and talking with a FRW. Completed 3. I will look for a new job and will access resources that the [employer] offers. . Sarted new job 4. Continue [...] Due or Overdue 20%(01/27/20 24 7:55 AM BASKETBALL COMMENTATOR) No Mitra Kendall LSW Note: Barriers: Life [...] financial resource strain 20%(01/27/20 24 7:56 AM BASKETBALL COMMENTATOR) No Mitra Kendall LSW Note: Barriers: Owe back taxes Strengths: I am working, I receive Social Security Disability Patient expressed understanding of goal: Yes Action steps to achieve this goal: 1. I will work with FRW in applying for [facility] Care 2. I will contact [facility] Line to ask if they have resources for owing back taxes documented as of this encounter Procedures Procedure Name Priority Date/Time Associated Diagnosis Comments 6 MINUTE WALK TEST Routine 01/13/2024 2: 31 PM CDT Moderate persistent asthma without complication AL PULMONARY STRESS TEST Routine 01/13/2024 2:31 PM CDT Moderate persistent asthma without complication PFT GENERAL LAB TESTING Routine 01/13/2024 1:48 PM CDT Moderate persistent asthma without complication documented in this encounter Results * 6 minute walk test (01/13/2024 [...] electronically signed: KAYLEIGH CASTLE 01/14/2024 12:04:29 PM Lizet Mann PA-C PFT ORDERABLES Final Result BREEZE PFT documented in this encounter Visit Diagnoses Diagnosis Moderate persistent [...] accurate information and submit it to the [facility]. 3. I will update CCC Team at outreach. HbA1C Not In Goal 04/28/2023 Diabetes Self-Management Edu cation Needed to Optimize Self-Care Behaviors 04/28/2023 Health Maintenance Due or Overdue 12/16/2023 Patient expresses financial resource strain 12/13 Assessment Noted Time PHQ-9 Depression Total Score: 9 12/23/19 24 12:36 PM CDT documented as of this encounter Care Teams Housing Quality Standard Inspector Relationship Specialty [place] [address] [place], [place] [phone] PCP - General Family Practice 07/11/14 [place] [address] [place] [address] Assigned PCP 12/16/11 Christy Campuzano PA-C [address] [place] [address] [id number] Referring Physician Family Medicine 04/22/20 Hans Cannon MD [address] [place] [address] 738162 Resident Pulmonary Disease 04/22/20 Estella Hassan, [facility] 3033 [place], [place] [phone] Pharmacist Pharmacist 05/26/20 Elaina Moreno MD 9 [place], [place] 617985 Cardiovascular & Thoracic Surgery 08/06/20 John Webb MD [address] 796345 Cardiovascular Disease 08/25/21 John Webb MD [address] 417305 Cardiovascular Disease 08/25/21 Estella Hassan, [facility] [address] [place] [address] Assigned MTM Pharmacist 12/09/21 Lindsay Carey OD [address] [facility] [place] [address] Ophthalmology 01/29/22 Richard Kam MD [address] [place] [address] [id number] Assigned Musculoskeletal Provider 08/14/22 [place] [address] BC PENA, [address] [address] Assigned Neuroscience Provider 01/01/23 Rosemarie Mcdowell, RN Application Packager Diabetes Education 03/17/23 Mitra Kendall, [facility] Lead Ground Intelligence Officer Primary Care - CC 12/12/23 Lizet Mann PA-C 717 [place], [place] 537895 Assigned Cancer Care Provider 01/04/24 Ravi Brownlee MD 420 [facility] 276 [place], [place] 242905 Assigned Pulmonology Provider 01/04/24 Nav Hughes MD [address] [place] [address] Assigned Heart and Vascular Provider 01/04/24 Manuel Ahn, ARA 6341 [facility] [address] Rubber Flap Tuber Machine Operator 01/05/24 Arabella Fishman MA Financial Resource Worker 01/06/24 documented as of this encounter
--- OUTSIDE RECORDS SUMMARY | 2024-01-31 20:03 | XMS_ITS | Encounter Summary ---
Author Organization [facility] Address [address] [place] [address] Care Team Providers Care Customer Services Manager Name Role Phone Va Glez MD Primary Care Provider Va Glez MD Unavailable Christy Campuzano PAUniqueC Unavailable Hans Cannon MD Unavailable Estella Hassan [facility] Unavailable Josh Cordero MD, Madhuri Unavailable [phone] John Webb MD Unavailable [phone] John Webb MD Unavailable [phone] Estella Hassan [facility] Unavailable [phone] Lindsay Carey OD Unavailable Richard Kam MD Unavailable Gaby Vila DO Unavailable [phone] Rosemarie Mcdowell RN Unavailable Mitra Kendall QUALITY ASSURANCE ANALYST Unavailable Lizet Mann PA-C Unavailable [phone] Ravi Brownlee MD Unavailable Nav Hughes MD Unavailable [phone] Manuel Ahn Kunal OD Unavailable Encounter Details Date Type Department Care Team (Latest Contact Info) Description 01/05/2024 Travel Social History Tobacco Use Types Packs/Day [...] re latives? Once a week 12/23/2023 Attends [employer] Not on file 12/22 Active Member [...] Answer Date Recorded PHQ-2 Score 2 12/23/2023 [facility] of Occupat ional Health - Occupational Stress [...] in an abandoned building, in an overnight skilled nursing, 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.) Yes 12/23/2023 Are you worried [...] on file Legal 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 SIZE MARKER Gender Identity Not on file Sexual Orientation Not on file Occupation Industry Job Start Date Job End Date Not on file Not on file Not on file Not on file documented as of this encounter Plan of Treatment Upcoming Encounters Date Type Department Care Team (Late st Contact Info) Description 02/01/2024 3:00 PM SIZE MARKER Office Visit [facility] [address] [place] [address] SHANKAR Byers [phone] Manuel Ahn, [address] [place] [address] SHANKAR BYERS [address] 02/02/2024 1:30 PM SIZE MARKER Therapy Visit [facility] [address] [facility] [address] [place] [address] Roldan, Alicja, OT 909 [place] [address] 02/05/2024 8:00 PM SIZE MARKER Therapy Visit [facility] [place] 6363 [facility] 103 [place] [phone] 02/13/2024 4:30 PM SIZE MARKER Oncology Visit [facility] 909 [place] [phone] Marian Agustin, DATA CODER OPERATOR [facility] 420 [facility] 207 [place], [place] 0[address]305 03/01/2024 7:00 AM SIZE MARKER Office [facility] [address] [place] [phone] Estella Hassan, [facility] 3033 [place] [address] 03/23/2024 2:00 PM SIZE MARKER Office Visit [facility] [address] [place] [phone] Lizet Mann PA-C 717 [place] [address] 03/29/2024 3:30 PM SIZE MARKER Office Visit [facility] 2945 [facility] [address] [place] [address] Hakeem Chacko MBBS 2945 [place] [address] 05/03/2024 3:00 PM SIZE MARKER Office Visit [facility] Sleep [facility] [address] [place] [phone] Gaurav Valenzuela, DATA CODER OPERATOR SUBSTANCE ADDICTION COORDINATOR [address] [place] [address] 05/22/2024 10:30 AM CDT Office Visit [facility] [address] [place] [phone] Estella Hassan, [facility] [address] [place] [address] 05/22/2024 11:30 AM CDT Office Visit [facility] [address] [place] [address] [place] [address] [place] [address] documented as of this encounter [...] for health insurance by looking in to [employer] and talking with a FRW. Completed 3. I will look for a new job and will access resources that the [employer] offers. . Sarted new job 4. Continue [...] Due or Overdue 20%(01/27/20 24 7:55 AM SIZE MARKER) No Mitra Kendall LSW Note: Barriers: Life [...] as needed for additional resources or supports. documented as of this encounter Visit Diagnoses [...] 04/28/2023 Health Maintenance Due or Overdue 12/16/2023 Assessment Noted Time PHQ-9 Depression Total Score: 9 12/23/19 24 12:36 PM CDT documented as of this encounter Care Teams Customer Services Manager Relationship Specialty [place] [address] [place] [address] PCP - General Family Practice 07/11/14 [place] [address] [place] [address] Assigned PCP 12/16/11 Christy Campuzano PA-C [address] [place] [address] Referring Physician Family Medicine 04/22/20 Hans Cannon MD 4151 [place] [address] Resident Pulmonary Disease 04/22/20 Estella Hassan, [facility] 3033 [place] [address] Pharmacist Pharmacist 05/26/20 Elaina Moreno MD [address] [place] [address] 673545 Cardiovascular & Thoracic Surgery 08/06/20 John Webb MD 6405 SHANKAR RANGEL 214825 Cardiovascular Disease 08/25/21 John Webb MD 6[address] 408535 Cardiovascular Disease 08/25/21 Estella Hassan, [facility] [address] [place] [address] Assigned MTM Pharmacist 12/09/21 Lindsay Carey OD [address] [facility] [place] [address] Ophthalmology 01/29/22 Richard Kam MD [address] [place] [address] [id number] Assigned Musculoskeletal Provider 08/14/22 [place] [address] BC PENA, [address] [address] Assigned Neuroscience Provider 01/01/23 Rosemarie Mcdowell, RN Corporate Travel Expert Diabetes Education 03/17/23 Mitra Kendall, QUALITY ASSURANCE ANALYST Lead Systems Software Developer Primary Care - CC 12/12/23 Lizet Mann PA-C 717 [place], [place] 187545 Assigned Cancer Care Provider 01/04/24 Ravi Brownlee MD 420 [facility] 276 [place], [place] 502095 Assigned Pulmonology Provider 01/04/24 Nav Hughes MD [address] [facility] [address] [place] [address] Assigned Heart and Vascular Provider 01/04/24 Manuel Ahn OD 6341 [place] [address] Application Technical Designer 01/05/24 documented as of this encounter
--- OUTSIDE RECORDS SUMMARY | 2024-01-31 20:03 | XMS_ITS | Encounter Summary ---
Author Organization [facility] Address [address] [place] [address] Care Team Providers Care Credit Support Counselor Name Role Phone Va Glez MD Primary Care Provider Va Glez MD Unavailable Christy Campuzano PA-C Unavailable [phone] Hans Cannon MD Unavailable Estella Hassan [facility] Unavailable Josh Cordero MD, Madhuri Unavailable [phone] John Webb MD Unavailable John Webb MD Unavailable Estella Hassan [facility] Unavailable Lindsay Carey OD Unavailable [phone] Richard Kam MD Unavailable Gaby Vila DO Unavailable [phone] Rosemarie Mcdowell RN Unavailable [phone] Ravi Brownlee MD Unavailable [phone] Mitra Kendall GEAR HOBBER SET UP OPERATOR Unavailable [phone] Encounter Details Date Type Department Care Team (Latest Contact Info) Description 01/02/2024 Travel Social History Tobacco Use Types Packs/Day [...] re latives? Once a week 12/23/2023 Attends [employer] Not on file 12/22 Active Member [...] Recorded PHQ-2 Score 2 12/23/2023 [facility] [place] of Occupat ional Health - Occupational Stress [...] in an abandoned building, in an overnight residential, 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.) Yes 12/23/2023 Are you worried [...] on file Legal 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 CHANNELER Gender Identity Not on file Sexual Orientation Not on file Occupation Industry Job Start Date Job End Date Not on file Not on file Not on file Not on file documented as of this encounter Plan of Treatment Upcoming Encounters Date Type Department Care Team (Late st Contact Info) Description 02/01/2024 3:00 PM CHANNELER Office Visit [address] [phone] Manuel Ahn, 6341 [place] [address] 02/02/2024 1:30 PM CHANNELER Therapy Visit [facility] Rehabilitation [place] [facility] [address] [facility] [address] [place] [phone] Alicja Roldan, OT 909 [place], [place] 838[address] 02/05/2024 8:00 PM CHANNELER Therapy Visit [facility] Sleep [facility] 6363 [facility] 103 [place] [address] 02/13/2024 4:30 PM CHANNELER [facility]cology [facility] 909 [facility] [place] [phone] Marian Agustin, [facility] 420 [facility] 207 [place] [address] 03/01/2024 7:00 AM CHANNELER Office [facility] [address] [place] [phone] Estella Hassan, [facility] 3033 [place] [address] 03/23/2024 2:00 PM CHANNELER Office Visit [facility] [address] [place] [address] [place] [address] Lizet Mann PA-C 717 [facility] [address] 03/29/2024 3:30 PM CHANNELER Office Visit [facility] 2945 [facility] 200 [place] [phone] Hakeem Chacko MBBS 2945 [place] [address] 05/03/2024 3:00 PM CHANNELER Office Visit [facility] [place] [address] [place] [phone] Gaurav Valenzuela, NOODLE MAKER [facility] [address] [place] [address] 05/22/2024 10:30 AM CDT Office [facility] [address] [place] [phone] Estella Hassan, [facility] [address] [place] [address] 05/22/2024 11:30 AM CDT Office [facility] [address] [place] [phone] [place] [address] [place], [place] [phone] documented as of this encounter Goals Goal [...] for health insurance by looking in to [employer] and talking with a FRW. Completed 3. I will look for a new job and will access resources that the [employer] offers. . Sarted new job 4. Continue to use Single Care to reduce the cost of my prescriptions. Create an action plan to increase financial stability Care Plan Patient expresses financial resource strain No Josefina Patel Establish Regular Follow-Ups with PCP Care Plan HbA1C Not In Goal No Rosemarie Mcdowell A, RN Get HbA1C Level in Goal [...] Due or Overdue 20%(01/27/20 24 7:55 AM CHANNELER) No Mitra Kendall LSW Note: Barriers: Life [...] documented as of this encounter Care Teams Credit Support Counselor Relationship Specialty [place] [address] [place] [address] PCP - General Family Practice 07/11/14 [place] [address] [place] [address] Assigned PCP 12/16/11 Christy Campuzano PA-C [address] [place] [address] 477112 Referring Physician Family Medicine 04/22/20 Hans Cannon MD [address] [place] [address] Resident Pulmonary Disease 04/22/20 Estella Hassan, [facility] [address] [place] [address] Pharmacist Pharmacist 05/26/20 Elaina Moreno MD [address] [place] [address] 748705 Cardiovascular & Thoracic Surgery 08/06/20 John Webb MD [address] 736545 Cardiovascular Disease 08/25/21 John Webb MD [address] 573665 Cardiovascular Disease 08/25/21 Estella Hassan, [facility] 3033 [place] [address] Assigned MTM Pharmacist 12/09/21 Lindsay Carey OD [address] [facility] [place] [address] Ophthalmology 01/29/22 Richard Kam MD [address] [place] [address] 437685 Assigned Musculoskeletal Provider 08/14/22 [place] [address] BC PENA, [address] 352157 Assigned Neuroscience Provider 01/01/23 Rosemarie Mcdowell RN Security Software Engineer Diabetes Education 03/17/23 Ravi Brownlee MD [address] [place] [address] Assigned Heart and Vascular Provider 09/04/23 01/03/24 Mitra Kendall, GEAR HOBBER SET UP OPERATOR Lead Fiber Technician Primary Care - CC 12/12/23 documented as of this encounter
--- OUTSIDE RECORDS SUMMARY | 2024-01-31 20:03 | XMS_ITS | Encounter Summary ---
Author Organization [facility] Address [address] [place] [address] Care Team Providers Care Filenet Architect Name Role Phone Va Glez MD Primary Care Provider Va Glez MD Unavailable Christy CampuzanoC Unavailable [phone] Hans Cannon MD Unavailable Estella Hassan [facility] Unavailable Josh Cordero MD, Madhuri Unavailable [phone] John Webb MD Unavailable [phone] John Webb MD Unavailable Estella Hassan [facility] Unavailable Lindsay Carey OD Unavailable Richard aKm MD Unavailable Gaby Vila DO Unavailable [phone] Rosemarie Mcdowell RN Unavailable Ravi Brownlee MD Unavailable Mitra Kendall DISHROOM ATTENDANT Unavailable Lizet MannC Unavailable Ravi Brownlee MD Unavailable [phone] Nav Hughes MD Unavailable [phone] Anabelle, Manuel Syed OD Unavailable [phone] Arabella Fishman MA Unavailable [phone] Reason for Visit * Reason Onset Date Comments Patient Request 01/03/2024 Encounter Details Date Type Department Care Team (Late st Contact Info) Description 01/03/[address] [phone] Kerry Bernal RN Patient Request Social History Tobacco Use Types Packs/Day [...] Answer Date Recorded PHQ-2 Score 2 12/23/2023 [facility] [place] of Occupat ional Health - Occupational Stress [...] in an abandoned building, in an overnight snf, 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.) Yes 12/23/2023 Are you worried [...] on file Legal 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 NET DEVELOPMENT MANAGER Gender Identity Not on file Sexual Orientation Not on file Occupation Industry Job Start Date Job End Date Not on file Not on file Not on file Not on file documented as of this encounter Miscellaneous Notes * Telephone Encounter - Kerry Bernal RN - 01/04/2024 8:10 AM CDT Care Coordination Mitra SW Patient is requesting a return call, he may lose his house due to back taxes, Thank you RN spoke to patient He does not remember what he originally called for, he will return call if further questions arise Patient states he may lose his house due to back taxes and worried as he is not getting along with his at this time Patient would really like to talk to CC social director Mitra RN will send her a message to see if able to call patient Jyothi Lozada Nurse [facility] * Telephone Encounter - Kerry Bernal RN - 01/03/2024 4:37 PM CDT RN received voicemail message from patient - asking for return call, does not advise what the concern is RN attempted to reach patient, voicemail is full unable to leave a message Jyothi Lozada [facility] documented in this encounter Plan of Treatment Upcoming Encounters Date Type Department Care Team (Late st Contact Info) Description 02/01/2024 3:00 PM NET DEVELOPMENT MANAGER Office Visit [facility] [address] [place] [phone] Manuel Ahn, 6341 [place] [address] 02/02/2024 1:30 PM NET DEVELOPMENT MANAGER Therapy Visit [facility] Rehabilitation [facility] [address] [facility] [address] [place] [phone] Alicja Roldan, OT 909 [place] [address] 02/05/2024 8:00 PM NET DEVELOPMENT MANAGER Therapy Visit [facility] Centers [address] 103 [place] [phone] 02/13/2024 4:30 PM NET DEVELOPMENT MANAGER [facility]cology [facility] 909 [facility] [place] [phone] Marian Agustin, [facility] 420 [facility] 207 [place] [address] 03/01/2024 7:00 AM NET DEVELOPMENT MANAGER Office Visit [address] [phone] Estella Hassan, [facility] [address] [place] [address] 426066 03/23/2024 2:00 PM NET DEVELOPMENT MANAGER Office Visit [facility] [address] [place] [phone] Lizet Mann PA-C 717 [place] [address] 03/29/2024 3:30 PM NET DEVELOPMENT MANAGER Office Visit [facility] 2945 [facility] 200 [place] [phone] Hakeem Chacko MBBS 2945 [place] [address] 05/03/2024 3:00 PM NET DEVELOPMENT MANAGER Office Visit [facility] [address] [phone] Gaurav Valenzuela, ENVIRONMENTAL SCIENCE INSTRUCTOR [facility] [address] [place] [address] 074914 05/22/2024 10:30 AM CDT Office Visit [address] [phone] Estella Hassan, [facility] [address] [place], [place] 2638[address] 05/22/2024 11:30 AM CDT Office Visit [facility] [address] [place] [phone] [place] [address] [place], [place] [phone] documented as of this encounter Goals Goal [...] for health insurance by looking in to [employer] and talking with a FRW. Completed 3. I will look for a new job and will access resources that the [employer] offers. . Sarted new job 4. Continue [...] Due or Overdue 20%(01/27/20 24 7:55 AM NET DEVELOPMENT MANAGER) No Mitra Kendall LSW Note: Barriers: Life [...] documented as of this encounter Care Teams Filenet Architect Relationship Specialty [place] [address] [place] [address] PCP - General Family Practice 07/11/14 [place] [address] [place] [address] Assigned PCP 12/16/11 Christy Campuzano PA-C [address] [place] [address] 952602 Referring Physician Family Medicine 04/22/20 Hans Cannon MD [address] [place] [address] Resident Pulmonary Disease 04/22/20 Estella Hassan, [facility] 3033 [place] [address] Pharmacist Pharmacist 05/26/20 Elaina Moreno MD [address] [place] [address] Cardiovascular & Thoracic Surgery 08/06/20 John Webb MD [address] [place] [address] Cardiovascular Disease 08/25/21 John Webb MD [address] [place] [address] Cardiovascular Disease 08/25/21 [facility] [address] [place] [address] Assigned MTM Pharmacist 12/09/21 Lindsay Carey OD [address] [facility] [place] [address] Ophthalmology 01/29/22 Richard Kam MD [address] [place] [address] 959195 Assigned Musculoskeletal Provider 08/14/22 [place] [address] [address] [place] [address] [place] 446457 Assigned Neuroscience Provider 01/01/23 Rosemarie Mcdowell, RN Steel Checker Diabetes Education 03/17/23 Ravi Brownlee MD [address] [address] Assigned Heart and Vascular Provider 09/04/23 01/03/24 EnochMitra oates Jewel, [facility] Lead Jute Bag Sewer Primary Care - CC 12/12/23 Lizet Mann PA-C 717 [place] [address] Assigned Cancer Care Provider 01/04/24 Ravi Brownlee MD [address] [place] [address] Assigned Pulmonology Provider 01/04/24 Nav Hughes MD [address] [place] [address] [place] [address] Assigned Heart and Vascular Provider 01/04/24 Manuel Ahn OD 6341 [facility] [place] [address] Drop Wire Hanger 01/05/24 Arabella Fishman MA Financial Resource Worker 01/06/24 documented as of this encounter
--- OUTSIDE RECORDS SUMMARY | 2024-01-31 20:03 | XMS_ITS | Encounter Summary ---
Author Organization [place] Address [address] [place] [address] Care Team Providers Care Medical Operations Supervisor Name Role Phone Va Glez MD Primary Care Provider [phone] Va Glez MD Unavailable Christy Campuzano PA-C Unavailable [phone] Hans Cannon MD Unavailable Estella Hassan [facility] Unavailable [phone] Josh Cordero MD, Elaina Unavailable [phone] John Webb MD Unavailable John Webb MD Unavailable [phone] Estella Hassan [facility] Unavailable [phone] Lindsay Carey OD Unavailable Richard Kam MD Unavailable Gaby Vila DO Unavailable [phone] Rosemarie Mcdowell RN Unavailable [phone] Ravi Brownlee MD Unavailable [phone] Mitra Kendall PARTS ROOM ASSISTANT Unavailable [phone] Reason for Referral * Consultation (Priority: 1-2 Weeks) - Pending Review Specialty Diagnoses / Procedures Referred By Mireille gonzalez Referred To Contact Diagnoses Kd Goins MD [address] [place] [address] Phone: tel: fax: Referral ID Status Reason Start Date Expiration Date V isits Requested Visits Authorized [id number] Pending Review 01/02/2024 01/01/2025 1 1 Question Answer Reason for Referral: Excessive Daytime Sleepiness Scheduling Instructions: [facility] will call you to coordinate your care as prescribed by your provider. If you don't hear from a international sales representative within 2 business days, please call [phone]. Comments Please be aware that coverage of these services is subject to the terms and limitations of your health insurance plan. Call member services at your health plan with any benefit or coverage questions. [facility] will call you to coordinate your care as prescribed by your provider. If you don't hear from a international sales representative within 2 business days, please call [phone]. Reason for Visit * Reason Comments Fatigue Patient states that he has been having trouble staying awake for the past couple of months. Encounter Details Date Type Department Care Team (Late st Contact Info) Description 01/02/2024 3:00 PM CDT Office Visit [place] [address] [place] [phone] Kd Nolasco MD [address] [place] [address] Somnolence (Primary Dx); Chest discomfort; Subacute cough; Moderate persistent asthma without complication Social History [...] re latives? Once a week 12/23/2023 Attends [employer] Not on file 10/11 /2024 Active Member of Clubs or Organizations Not [...] Answer Date Recorded PHQ-2 Score 2 12/23/2023 [facility] - Occupational Stress Questionnaire Answer Date Recorded [...] Answer Date Recorded Do you have housing? (Dedein g is defined as stable permanent housing and does not include staying ouside in a car, in a tent, in an abandoned building, in an overnight fdc, 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.) Yes 12/23/2023 Are you worried [...] on file Legal 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 CONCRETE ROD BUSTER Gender Identity Not on file Sexual Orientation Not on file Occupation Industry Job Start Date Job End Date Not on file Not on file Not on file Not on file documented as of this encounter Last Filed Vital Signs Vital Sign Reading Time Taken Comments Blood Pressure 125/80 01/02/2024 2:49 PM CDT Pulse 87 01/02/2024 2:49 PM CDT Temperature 36.6 C (97.9 F) 01/02/2024 2:49 PM CDT Respiratory Rate 14 01/02/2024 2:49 PM CDT Oxygen Saturation 94% 01/02/2024 2:49 PM CDT Inhaled Oxygen Concentration - - Weight 133.5 kg (294 lb 6.4 oz) 01/02/2024 2:49 PM CDT Height 175.3 cm (5' 9) 01/02/2024 2:49 PM CDT Body Mass Index 43.48 01/02/2024 2:49 PM CDT documented in this encounter Progress Notes * Kd Nolasco MD - 01/02/2024 3:00 PM CDT Assessment & Plan (R40.0) Somnolence (primary encounter diagnosis) - Daytime somnolence for several days, snores at night - Seen in ER this month for similar complaints, workup negative - No prior sleep study - Possible URI as below will treat Plan: Adult Sleep Eval & Management Referral, Comprehensive metabolic panel (BMP + Alb, Alk Phos, ALT, AST, Total. Bili, TP), TSH with free T4 reflex, CBC with platelets, Glucose by meter Work note provided (R07.89) Chest discomfort - Seen in ER for same complaint recently and workup negative - Pain is left sided under breast - No substernal pressure Plan: Troponin T, High Sensitivity (R05.2) Subacute cough - Ongoing since this week. Also has some sinus congestion and phlegm production Plan: guaiFENesin (MUCINEX) 600 MG 12 hr tablet, amoxicillin-clavulanate (AUGMENTIN) 875-125 MG tablet (J45.40) Moderate persistent asthma without complication - Controlled on current regimen Plan: albuterol (PROAIR HFA/PROVENTIL HFA/VENTOLIN HFA) 108 (90 Base) MCG/ACT inhaler Roseline Green is a 63 year old, presenting for the following health issues: Fatigue (Patient states that he has been having trouble staying awake for the past couple of months.) 01/02/2024 2:46 PM Additional Questions Roomed by Marii Cortez Accompanied by self 01/02/2024 2:46 PM Patient Reported Additional Medications Patient reports taking the following new medications no History of Present Illness Reason for visit: Very tired shakyness in hands always warm He is missing 1 dose(s) of medications per week. 63M here for excessive somnolence. Patient reports several days of excessive somnolence where he ishaving difficulty staying awake during the day. 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 He was evaluated for shortness of breath and chest discomfort on December 17 withworkup being largely unremarkable. He denies any chest pain in clinic currently but does report some discomfort under his left breast. He does report snoring at night and has not had a sleep study. He also reports facial congestion and phlegm production for several days. He denies any sick contactsat home. Review of Systems Constitutional, neuro, ENT, endocrine, pulmonary, cardiac, gastrointestinal, genitourinary, musculoskeletal, integument and psychiatric systems are negative, except as otherwise noted. Objective There were no vitals taken for this visit. There is no height or weight on file to calculate BMI. Physical Exam Vitals reviewed. Constitutional: Appearance: Normal appearance. He is obese. HENT: Head: Atraumatic. Eyes: Extraocular Movements: Extraocular movements intact. Cardiovascular: Rate and Rhythm: Normal rate and regular rhythm. Pulmonary: Breath sounds: Normal breath sounds. Abdominal: General: Abdomen is flat. Musculoskeletal: General: Normal range of motion. Skin: General: Skin is warm. Neurological: General: No focal deficit present. Psychiatric: Mood and Affect: Mood normal. Thought Content: Thought content normal. Signed Electronically by: Kd Nolasco MD documented in this encounter Plan of Treatment Upcoming Encounters Date Type Department Care Team (Late st Contact Info) Description 02/01/2024 3:00 PM CONCRETE ROD BUSTER Office Visit [facility] [address] [place] [address] Manuel Ahn, [address] [place] [address] 02/02/2024 1:30 PM CONCRETE ROD BUSTER Therapy Visit [facility] [address] [facility] [address] [place] [phone] Alicja Roldan, OT [address] [place] [address] 02/05/2024 8:00 PM CONCRETE ROD BUSTER Therapy Visit [facility] [place] [address] [place] [address] [address] [place] [phone] 02/13/2024 4:30 PM CONCRETE ROD BUSTER Oncology Visit [facility] [address] [place] [phone] Marian Agustin, NESSA WRONG ADDRESS CLERK [address] [facility] [address] [place] [address] 03/01/2024 7:00 AM CONCRETE ROD BUSTER Office Visit [facility] [address] [place] [phone] Estella Hassan, [facility] [address] [place] [address] 03/23/2024 2:00 PM CONCRETE ROD BUSTER Office Visit [facility] [address] [place] [address] Lizet Mann PA-C [address] [place] [address] 03/29/2024 3:30 PM CONCRETE ROD BUSTER Office Visit [facility] [address] [facility] 200 [place] [address] Hakeem Chacko MBBS [address] [place] [address] 05/03/2024 3:00 PM CONCRETE ROD BUSTER Office Visit [facility] [place] [address] [place] [phone] Gaurav Valenzuela, DESIGN MAINTENANCE ENGINEER [facility] [address] [place] [address] 05/22/2024 10:30 AM CDT Office Visit [address] [phone] Estella Hassan, [facility] [address] [place] [address] 05/22/2024 11:30 AM CDT Office Visit [facility] [address] [place] [phone] [place] [address] [place], [place] [phone] Scheduled Orders Name Type Priority Associated Diagnoses Orde r Schedule Glucose by meter Point of Care Testing Routine Somnolence Ordered: 01/02/2024 Scheduled Referrals Name Type Priority Associated Diagnoses Orde r Schedule Adult Sleep Eval & Management Referral Referral Priority: 1-2 Weeks Somnolence Expected: 01/02/2024 (Approximate), Expires: 01/01/2025 documented as of this encounter Goals Goal [...] for health insurance by looking in to [employer] and talking with a FRW. Completed 3. I will look for a new job and will access resources that the [employer]. center offers. . Sarted new job 4. [...] Due or Overdue 20%(01/27/20 24 7:55 AM CONCRETE ROD BUSTER) No Mitra Kendall LSW Note: Barriers: Life [...] or supports. documented as of this encounter Procedures Procedure Name Priority Date/Time Associated Diagnosis Comments TROPONIN T, HIGH SENSITIVITY Routine 01/02/2024 3:44 PM CDT Chest discomfort TSH WITH FREE T4 REFLEX Routine 01/02/2024 3:44 PM CDT Somnolence COMPREHENSIVE METABOLIC PANEL Routine 01/02/2024 3:44 PM CDT Somnolence CBC WITH PLATELETS Routine 01/02/2024 3: 44 PM CDT Somnolence documented in this encounter Results * Troponin T, High Sensitivity (01/02/2024 3:44 PM CDT) Troponin T, High Sensitivity 19 <=22 ng/L [...] BLOOD ORDERABLES Final Res ult [facility] Core Lab [address] [facility], [address] [place] [address], [facility] * CBC with platelets (01/02/2024 [...] BLOOD ORDERABLES Final Res ult [facility]AT[facility] [address], [address] [place] [address] * TSH with free T4 reflex (01/02/2024 3:44 PM CDT) Pathologist [facility] TSH 1.23 0.30 - 4.20 uIU/mL 01/03/2024 2:38 AM CDT [facility] Blood BLOOD SPECIMEN / Unknown Venipuncture / Unknown 01/02/2024 3:44 PM CDT 01/02/2024 3:44 PM CDT Kd Nolasco MD LAB - BLOOD ORDERABLES Final Res ult [facility] Lab [address] [facility], [address] [place] [address] * (ABNORMAL) Comprehensive metabolic panel (BMP + Alb, Alk Phos, ALT, AST, Total. Bili, TP) (01/02/2024 3:44 PM CDT) Pathologist [facility] Sodium 141 135 - 145 mmol/L 01/03/2024 [...] 2:38 AM CDT [facility] Comment:eGFR calculated usin 2020 CKD-EPI equation. Calcium 9.8 8.8 - 10.4 [...] BLOOD ORDERABLES Final Res ult [facility] Core Lab [address] [facility] [address] [facility], [address] [place] [address], [facility] documented in this encounter Visit Diagnoses Diagnosis Somnolence- Primary Other alteration of consciousness Chest discomfort Other chest pain Subacute cough Cough Moderate persistent asthma without complication Unspecified asthma [...] documented as of this encounter Care Teams Medical Operations Supervisor Relationship Specialty [place] [address] [place] [address] PCP - General Family Practice 07/11/14 [place] [address] [place] [address] Assigned PCP 12/16/11 Christy Campuzano PA-C [address] [place] [address] 690902 Referring Physician Family Medicine 04/22/20 Hans Cannon MD [address] [place] [address] Resident Pulmonary Disease 04/22/20 Estella aHssan, [facility] [address] [place] [address] [phone] Pharmacist Pharmacist 05/26/20 Elaina Moreno MD [address] [place] [address] 673835 Cardiovascular & Thoracic Surgery 08/06/20 John eWbb MD [address] [place] [address] Cardiovascular Disease 08/25/21 John Webb MD [address] [place] [address] Cardiovascular Disease 08/25/21 Estella Hassan, [facility] [address] [place] [address] Assigned MTM Pharmacist 12/09/21 Lindsay Carey OD [address] [place] [address] [place] [address] Ophthalmology 01/29/22 Richard Kam MD [address] [place] [address] Assigned Musculoskeletal Provider 08/14/22 [place] [address] [facility], [address] [address] Assigned Neuroscience Provider 01/01/23 Rosemarie Mcdowell, RN Safety Companion Diabetes Education 03/17/23 Ravi Brownlee MD [address] [facility] [address] [place], [place] [address] Assigned Heart and Vascular Provider 09/04/23 01/03/24 Mitra Kendall, PARTS ROOM ASSISTANT Lead Life Management Teacher Primary Care - CC 12/12/23 documented as of this encounter
--- OUTSIDE RECORDS SUMMARY | 2024-01-31 20:03 | XMS_ITS | Encounter Summary ---
Author Organization [facility] Address [address] [place] [address] Care Team Providers Care Educational Program Assistant Name Role Phone Va Glez MD Primary Care Provider [phone] Va Glez MD Unavailable Christy Campuzano PAUniqueC Unavailable Hans Cannon MD Unavailable Estella Hassan [facility] Unavailable Josh Cordero MD, Madhuri Unavailable [phone] John Webb MD Unavailable John Webb MD Unavailable Estella Hassan [facility] Unavailable Lindsay Carey OD Unavailable [phone] Richard Kam MD Unavailable Gaby Vila DO Unavailable Rosemarie Mcdowell RN Unavailable [phone] Mitra Kendall HUMANE AGENT Unavailable Lizet Mann PA-C Unavailable Ravi Brownlee MD Unavailable Nav Hughes MD Unavailable [phone] Manuel Ahn OD Unavailable Arabella Fishman MA Unavailable [phone] YfnAllen hernandezlla [facility] Unavailable Unavailable Encounter Details Date Type Department Care Team (Late st Contact Info) Description 01/04/2024 MyC Medical Advice [facility] [address] [address] Claribel Mauricio, RN Social History [...] re latives? Once a week 12/23/2023 Attends [employer] Not on file 12/22 Active Member [...] Answer Date Recorded PHQ-2 Score 2 12/23/2023 [facility] [place] [facility] - Occupational Stress [...] on file Legal 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 TERRA COTTA MASON Gender Identity Not on file Sexual Orientation Not on file Occupation Industry Job Start Date Job End Date Not on file Not on file Not on file Not on file documented as of this encounter Plan of Treatment Upcoming Encounters Date Type Department Care Team (Late st Contact Info) Description 02/01/2024 3:00 PM TERRA COTTA MASON [facility] [address] [place] [address] SHANKAR [place]ers [address] Manuel Ahn, OD [address] [place] [address] 02/02/2024 1:30 PM TERRA COTTA MASON Therapy Visit [facility] [address] [facility] [address] [place] [phone] Alicja Roldan, OT [address] [place] [address] 02/05/2024 8:00 PM TER[employer] C[employer]TA MASON Therapy Visit [facility] [place] [address] [facility] 103 [place] [phone] 02/13/2024 4:30 PM TERRA COTTA MASON [facility]cology [facility] 909 [place] [phone] Marian Agustin, INSTRUMENT TECH [facility] [address] [facility] 207 [place] [address] 03/01/2024 7:00 AM TERRA COTTA MASON Office [facility] [address] [place] [phone] Estella Hassan, [facility] [address] [place] [address] 03/23/2024 2:00 PM TERRA COTTA MASON Office Visit [facility] [address] [place] [address] [place] [phone] Lizet Mann PA-C [address] [place] [address] 03/29/2024 3:30 PM TERRA COTTA MASON Office Visit [facility] [address] [facility] [address] [place] [phone] Hakeem Chacko MBBS [address] [place] [address] 05/03/2024 3:00 PM TER[employer] [place]ON Office Visit [facility] [address] [place] [phone] Gaurav Valenzuela, INSTRUMENT TECH [facility] [address] [facility] 106 [place] [address] 05/22/2024 10:30 AM CDT Office [facility] [address] [place] [phone] Estella Hassan, [facility] [address] [place] [address] 05/22/2024 11:30 AM CDT Office [facility] [address] [place] [address] [place] [address] [place] [address] [phone] documented as of this encounter Goals Goal Patient Goal Type Associated Problems Recent Progress Patient-Stated? Author Health Maintenance Care Plan HP GENERAL PROBLEM 100%( 023 10:17 AM CDT) No EnochMitra oates K, HUMANE AGENT Note: Update on 05/25/22 Barriers: Currently without [...] my yearly preventive visit. 4. Apply for [facility] as I currently am without insurance.Going to wait for Medicare starting October 12 Create an action plan to increase financial stability Care Plan Patient expresses financial resource strain 100%( 023 10:17 AM CDT) No Mitra Kendall K, HUMANE AGENT Note: Updated on 05/25/22 Barriers: Currently not [...] job and will access resources that the [employer] offers. . Sarted new job 4. Continue [...] Due or Overdue 20%(01/27/20 24 7:55 AM TERRA COTTA MASON) No Mitra Kendall, HUMANE AGENT Note: Barriers: Life stressors Strengths: Engaged with [...] documented as of this encounter Care Teams Educational Program Assistant Relationship Specialty [place] [address] [place] [address] PCP - General Family Practice 07/11/14 [place] [address] [place] [address] Assigned PCP 12/16/11 Christy Campuzano PA-C [address] [place] [address] 212922 Referring Physician Family Medicine 04/22/20 Hans Cannon MD [address] [place] [address] [id number] Resident Pulmonary Disease 04/22/20 Estella Hassan, [facility] [employer] [place], [place] [phone] Pharmacist Pharmacist 05/26/20 Elaina Moreno MD [address] [place] [address] 995595 Cardiovascular & Thoracic Surgery 08/06/20 John Webb MD [address] [place] 95[address]95 Cardiovascular Disease 08/25/21 John Webb MD [address] [place] 987245 Cardiovascular Disease 08/25/21 Estella Hassan, [facility] [employer] [place], [place] 539566 Assigned MTM Pharmacist 12/09/21 Lindsay Carey OD [address] [facility] [place] [address] Ophthalmology 01/29/22 Richard Kam MD [address] [place] [address] Assigned Musculoskeletal Provider 08/14/22 [place] [address] [place] , [address] [address] Assigned Neuroscience Provider 01/01/23 Rosemarie Mcdowell, RN Levee Superintendent Diabetes Education 03/17/23 Mitra Kendall, HUMANE AGENT Lead Textile Bag Sewer Primary Care - CC 12/12/23 Lizet Mann PA-C [address] [place], [place] 329135 Assigned Cancer Care Provider 01/04/24 Ravi Brownlee MD [address] [facility] [address] [place], [place] 6[address] Assigned Pulmonology Provider 01/04/24 Nav Hughes MD [address] [facility] [address] [place] 6[address]205 Assigned Heart and Vascular Provider 01/04/24 Manuel Ahn OD [address] [facility] [place] [address] Brace End [employer] Former 01/05/24 Arabella Fishman MA Financial Resource Worker 01/06/24 Thalia Charles [facility] Pharmacist Pharmacy 01/26/24 documented as of this encounter
--- OUTSIDE RECORDS SUMMARY | 2024-01-31 20:03 | XMS_ITS | Encounter Summary ---
Author Organization [facility] Address [address] [place] [address] Care Team Providers Care Compounding And Finishing Supervisor Name Role Phone Va Glez MD Primary Care Provider [phone] Va Glez MD Unavailable Christy Campuzano PAUniqueC Unavailable Hans Cannon MD Unavailable Estella Hassan [facility] Unavailable Josh Cordero MD, Madhuri Unavailable [phone] John Webb MD Unavailable John Webb MD Unavailable Estella Hassan [facility] Unavailable Lindsay Carey OD Unavailable [phone] Richard Kam MD Unavailable Gaby Vila DO Unavailable Rosemarie Mcdowell RN Unavailable Mitra Kendall DENTAL APPLIANCE MECHANIC Unavailable Lizet Mann PA-C Unavailable Ravi Brownlee MD Unavailable [phone] Nav Hughes MD Unavailable [phone] Manuel Ahn OD Unavailable Arabella Fishman MA Unavailable [phone] YfnAllen hernandezlla [facility] Unavailable Unavailable Encounter Details Date Type Department Care Team (Late st Contact Info) Description 01/04/2024 [facility] Medical Advice [facility] [address] [facility] [address] [place] [address] Bc Cochran Social History Tobacco Use Types Packs/Day Years [...] re latives? Once a week 12/23/2023 Attends Zoroastrian Services Not on file 12/22 Active Member [...] Recorded PHQ-2 Score 2 12/23/2023 [facility] [place] of Occupat ional Health - Occupational Stress [...] on file Legal 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 DELIVERY DRIVER/SUPERVISOR Gender Identity Not on file Sexual Orientation Not on file Occupation Industry Job Start Date Job End Date Not on file Not on file Not on file Not on file documented as of this encounter Plan of Treatment Upcoming Encounters Date Type Department Care Team (Late st Contact Info) Description 02/01/2024 3:00 PM DELIVERY DRIVER/SUPERVISOR Office Visit [facility] [address] [place] [address] [place]ANKAR [place] [address] Manuel Ahn, OD [address] [facility] [place] [address] 02/02/2024 1:30 PM DELIVERY DRIVER/SUPERVISOR Therapy Visit [facility] [address] [facility] [address] [place] [phone] Alicja Roldan, OT 909 [place] [address] 02/05/2024 8:00 PM DELIVERY DRIVER/SUPERVISOR Therapy Visit [facility] [place] 6363 [facility] 103 [place] [phone] 02/13/2024 4:30 PM DELIVERY DRIVER/SUPERVISOR Oncology Visit [facility] 909 [place] [address] Marian Agustin, MANAGER [facility] 420 [facility] 207 [place] [address] 03/01/2024 7:00 AM DELIVERY DRIVER/SUPERVISOR Office Visit [facility] [address] [place] [phone] Estella Hassan, [facility] 3033 [place] [address] 03/23/2024 2:00 PM DELIVERY DRIVER/SUPERVISOR Office Visit [facility] [address] [place] [address] [place] [phone] Lizet Mann PA-C 717 [place] [address] 03/29/2024 3:30 PM DELIVERY DRIVER/SUPERVISOR Office Visit [facility] [address] [facility] [address] [place] [phone] Hakeem Chacko MBBS 2945 [place] [address] 05/03/2024 3:00 PM DELIVERY DRIVER/SUPERVISOR Office Visit [address] [phone] Gaurav Valenzuela, NESSA OFFICE DIRECTOR [address] [place], [place] [address]E [facility] 106 [place] [address] 05/22/2024 10:30 AM CDT Office Visit [facility] [address] [place] [phone] Estella Hassan, [facility] [address] [facility] [place] [address] 05/22/2024 11:30 AM CDT Office Visit [address] [address] [place] [id number] [place] [address] [phone] documented as of this encounter Goals Goal [...] job and will access resources that the [employer] offers. . Sarted new job 4. Continue [...] Due or Overdue 20%(01/27/20 24 7:55 AM DELIVERY DRIVER/SUPERVISOR) No Mitra Kendall, DENTAL APPLIANCE MECHANIC Note: Barriers: Life stressors Strengths: Engaged with [...] documented as of this encounter Care Teams Compounding And Finishing Supervisor Relationship Specialty [place] [address] [place] [address] PCP - General Family Practice 07/11/14 [place] [address] [place] [address] Assigned PCP 12/16/11 Christy Campuzano PA-C [address] [place] [address] 501072 Referring Physician Family Medicine 04/22/20 Hans Cannon MD [address] [place] [address] [phone] Resident Pulmonary Disease 04/22/20 Estella Hassan, [facility] [place], [place] 3885[address] Pharmacist Pharmacist 05/26/20 Elaina Moreno MD [address] [place] [address] 027415 Cardiovascular & Thoracic Surgery 08/06/20 John Webb MD 6405 SH[address] [place]ANGEL 922665 Cardiovascular Disease 08/25/21 John Webb MD 6[address] [place] [place] 815255 Cardiovascular Disease 08/25/21 Estella Hassan, [facility] [address] [place] [address] 558666 Assigned MTM Pharmacist 12/09/21 Lindsay Carey OD [address] [facility] [address] Ophthalmology 01/29/22 Richard Kam MD 500 [place], [place] 568485 Assigned Musculoskeletal Provider 08/14/22 [place] [address] BC PENA, [address] [address] Assigned Neuroscience Provider 01/01/23 Rosemarie Mcdowell, RN Engraving Supervisor Diabetes Education 03/17/23 Mitra Kendall, DENTAL APPLIANCE MECHANIC Lead Agri Business Agent Primary Care - CC 12/12/23 Lizet Mann PA-C 717 [place], [place] 820125 Assigned Cancer Care Provider 01/04/24 Ravi Brownlee MD 420 [facility] 276 [place], [place] 575245 Assigned Pulmonology Provider 01/04/24 Nav Hughes MD 6405 [facility] [address] SH[place] 285155 Assigned Heart and Vascular Provider 01/04/24 Manuel Ahn OD 6341 [facility] SHANKAR BYERS 014152 Glaze Maker 01/05/24 Arabella Fishman MA Financial Resource Worker 01/06/24 Thalia Charles [facility] Pharmacist Pharmacy 01/26/24 documented as of this encounter
--- OUTSIDE RECORDS SUMMARY | 2024-01-31 20:03 | XMS_ITS | Encounter Summary ---
Author Organization [facility] Address [address] [place] [address] Care Team Providers Care Grade Teacher Name Role Phone Va Glez MD Primary Care Provider Va Glez MD Unavailable Christy Campuzano PAUniqueC Unavailable Hans Cannon MD Unavailable Estella Hassan [facility] Unavailable [phone] Josh Cordero MD, Madhuri Unavailable [phone] John Webb MD Unavailable [phone] John Webb MD Unavailable Estella Hassan [facility] Unavailable [phone] Lindsay Carey OD Unavailable Richard Kam MD Unavailable Gaby Vila DO Unavailable Rosemarie Mcdowell RN Unavailable Mitra Kendall LEAD ARCHITECT Unavailable [phone] Lizet Mann PA-C Unavailable Ravi Brownlee MD Unavailable Nav Hughes MD Unavailable [phone] Manuel Ahn Kunal OD Unavailable Reason for Visit * Reason Onset Date Comments Patient Request 01/05/2024 Glucose/CGM Encounter Details Date Type Department Care Team (Shon st Contact Info) Description 01/05/[address] [address] Kerry Bernal RN Patient Request (Glucose/CGM ) Social History Tobacco Use Types Packs/Day Years [...] re latives? Once a week 12/23/2023 Attends Holiness Services Not on file 12/22 Active Member [...] Answer Date Recorded PHQ-2 Score 2 12/23/2023 [facility] [place] of Occupat ional Health - Occupational Stress [...] in an abandoned building, in an overnight correction, 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.) Yes 12/23/2023 Are you worried [...] on file Legal 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 ASSOCIATE DIRECTOR OF SALES Gender Identity Not on file Sexual Orientation Not on file Occupation Industry Job Start Date Job End Date Not on file Not on file Not on file Not on file documented as of this encounter Miscellaneous Notes * Telephone Encounter - Yelena Bustamante RN - 01/05/2024 12:59 PM CDT Called and spoke with pt, Relayed message from Estella Hassan RP below. Pt verbalizes understanding and is agreeable with plan. Pt denies any further questions or concernsat this time. Yelena Tucker RN Clinic RN [facility] * Telephone Encounter - Estella Hassan RP - 01/05/2024 11:00 AM CDT Yes we knew his blood glucose would be high since he has been out of the Ozempic. He needs to restart the Ozempic as soon as possible. The increase in glipizide dose that we did today will also help.He can check his blood glucose about 4x daily every 6 hours. With the CGM, he can scan it before and after he eats too but I don't want him anxious about it because his blood glucose have been high like this for the past year. He just now can see them all the time. The CGM should help him monitor his diet and eat better and take his medications regularly. When he restarts the Ozempic, his readings will go back to normal. Estella Hassan, PharmD, BCACP Medication Therapy Management Provider, [facility] [phone] * Telephone Encounter - Kerry Bernal RN - 01/05/2024 10:01 AM CDT Estella BATES Patient checked blood sugar x 3 when he got home 174/174/187 (has not eaten today) Very anxious RN received call from patient Was in to see [facility] today Given CGM to check blood sugar today, checked x 3 this AM 174/175/187 Patient has not yet eaten today RN recommended patient check glucose per [facility] recommendations which he believes is twice per day. RNadvised to check spaced out during the day or if symptoms arise not 3 times in a row, patient states understanding RN advised to call with any questions/concerns regarding the readings patient is very anxious. RN advised will send to [facility] per his request Patient is having a hard time using my chart, messages being sent to incorrect place and he thinks he may have deleted his pcp from the list. RN gave my chart help line Patient went ice fishing with his grandson last week that was enjoyable and plans on a halloween libertarian this weekend with his family. RN advised this is important to do fun things with family Patient will return call if any other questions arise Kerry Bernal Registered Nurse [facility] documented in this encounter Plan of Treatment Upcoming Encounters Date Type Department Care Team (Late st Contact Info) Description 02/01/2024 3:00 PM ASSOCIATE DIRECTOR OF SALES Office Visit [facility] 6341 [place] [phone] Manuel Ahn, 6341 [place] [address] 02/02/2024 1:30 PM ASSOCIATE DIRECTOR OF SALES Therapy Visit [facility] [address] [facility] [address] [place] [phone] Alicja Roldan, OT 909 [place], [place] 8[address] 02/05/2024 8:00 PM ASSOCIATE DIRECTOR OF SALES Therapy Visit [facility] [place] 6363 [facility] 103 [place] [phone] 02/13/2024 4:30 PM ASSOCIATE DIRECTOR OF SALES Oncology Visit [facility] 909 [place] [phone] Marian Agustin APRN OUTPATIENT CASE MANAGER [address] [place] [facility] 207 [place] [address] 03/01/2024 7:00 AM ASSOCIATE DIRECTOR OF SALES Office Visit [facility] [address] [place] [phone] Estella Hassan, [facility] 3033 [place] [address] 03/23/2024 2:00 PM ASSOCIATE DIRECTOR OF SALES Office Visit [facility] [address] [place] [address] [place] [phone] Lizet Mann PA-C 717 [place] [address] 03/29/2024 3:30 PM ASSOCIATE DIRECTOR OF SALES Office Visit [facility] 2945 [facility] 200 [place] [address] Hakeem Chacko MBBS 2945 [place] [address] 05/03/2024 3:00 PM ASSOCIATE DIRECTOR OF SALES Office Visit [facility] [address] [phone] Gaurav Valenzuela, DIRECTOR DIABETES [address] [address] 05/22/2024 10:30 AM CDT Office Visit [address] [phone] Estella Hassan, [facility] 3033 [place] [address] 05/22/2024 11:30 AM CDT Office Visit [address] [phone] Va Glez MD [address] [place] [address] [phone] documented as of this encounter Goals Goal Patient Goal Type Associated Problems Recent Progress Patient-Stated? Author Health Maintenance Care Plan HP GENERAL PROBLEM 100%( 023 10:17 AM CDT) No Mitra Kendall, LEAD ARCHITECT Note: Update on 05/25/22 Barriers: Currently without [...] for health insurance by looking in to [employer] and talking with a FRW. Completed 3. I will look for a new job and will access resources that the [employer] offers. . Sarted new job 4. Continue [...] Due or Overdue 20%(01/27/20 24 7:55 AM ASSOCIATE DIRECTOR OF SALES) No Mitra Kendall LSW Note: Barriers: Life [...] documented as of this encounter Care Teams Grade Teacher Relationship Specialty [place] [address] [place] [address] PCP - General Family Practice 07/11/14 [place] [address] [place] [address] Assigned PCP 12/16/11 Christy Campuzano PA-C [address] [place] [address] 954202 Referring Physician Family Medicine 04/22/20 Hans Cannon MD [address] [place] [address] [phone] Resident Pulmonary Disease 04/22/20 Estella Hassan, [facility] [address] [place], [place] [address] Pharmacist Pharmacist 05/26/20 Elaina Moreno MD 909 [place], [place] 657[address] Cardiovascular & Thoracic Surgery 08/06/20 John Webb MD 6[address] [address] Cardiovascular Disease 08/25/21 John Webb MD [address] [place], [place] 8248[address] Cardiovascular Disease 08/25/21 Estelal Hassan, [facility] [address] [place] [address] Assigned MTM Pharmacist 12/09/21 Lindsay Carey OD [address] [place] [address] Ophthalmology 01/29/22 Richard Kam MD [address] [place] [address] [id number] Assigned Musculoskeletal Provider 08/14/22 [place] [address] [place] , [address] [address] Assigned Neuroscience Provider 01/01/23 Rosemarie Mcdowell, RN Linotype Worker Diabetes Education 03/17/23 Mitra Kendall, LEAD ARCHITECT Lead Finding Fastener Primary Care - CC 12/12/23 Lizet Mann PA-C 717 [place], [place] 059295 Assigned Cancer Care Provider 01/04/24 Ravi Brownlee MD [address] [place] [address] 276 [place], [place] 187345 Assigned Pulmonology Provider 01/04/24 Nav Hughes MD [address] [facility] [address] [address] [address] SH[place] [address] Assigned Heart and Vascular Provider 01/04/24 Manuel Ahn OD [address] [facility] SH[place]AR [place]DS [address] Steam Table Associate 01/05/24 documented as of this encounter
--- OUTSIDE RECORDS SUMMARY | 2024-01-31 20:03 | XMS_ITS | Encounter Summary ---
Author Organization [facility] Address [address] [place] [address] Care Team Providers Care Squeegee Finisher Name Role Phone Va Glez MD Primary Care Provider [phone] Va Glez MD Unavailable Christy Campuzano PA-C Unavailable [phone] Hans Cannon MD Unavailable Estella Hassan [facility] Unavailable [phone] Josh Cordero MD, Madhuri Unavailable [phone] John Webb MD Unavailable [phone] John Webb MD Unavailable [phone] Estella Hassan [facility] Unavailable [phone] Lindsay Carey OD Unavailable Richard Kam MD Unavailable Gaby Vila DO Unavailable [phone] Rosemarie Mcdowell RN Unavailable [phone] Ravi Brownlee MD Unavailable [phone] Mitra Kendall CONTROL CLERK AUDITING Unavailable [phone] Reason for Visit * Reason Onset Date Comments Same Day Appointment 01/02/2024 Pt would li ke to check and see if anyone can squeeze him in for a same day appt sometime today 01/01 Encounter Details Date Type Department Care Team (Late st Contact Info) Description 01/02/2024 Telephone [facility] [address] [place] [address] [place] [address] [place] [address] Same Day Appointment (Pt would like to check and see if anyone can squeeze him in for a same day appt sometime today 01/01) Social History Tobacco Use Types Packs/Day Years [...] re latives? Once a week 12/23/2023 Attends Muslim Services Not on file 12/22 Active Member [...] Answer Date Recorded PHQ-2 Score 2 12/23/2023 [facility] [place] of Occupat ional Health - Occupational Stress [...] on file Legal 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 MANAGER PRODUCT SUPPORT Gender Identity Not on file Sexual Orientation Not on file Occupation Industry Job Start Date Job End Date Not on file Not on file Not on file Not on file documented as of this encounter Miscellaneous Notes * Telephone Encounter - Janette Pires - 01/02/2024 10:36 AM CDT Spoke with patient, [facility] openings today, but pt [facility] have one at the [facility] today. Clarified address for pt appt today at [facility] [address] [facility] [place] * Telephone Encounter - Bere Denton - 01/02/2024 10:05 AM CDT Reason for Call: Appointment Request Patient requesting this type of appt: Ravi Devi Requested provider: No Ref-Primary Care Physician Reason patient unable to be scheduled: Not within requested timeframe When does patient want to be seen/preferred time: Same day Comments: Pt has been having difficulty staying awake and has been really tired and thought it could be asthma related and would like to get checked out today if possible. Pt is currently scheduled at [facility] for 2:40 pm today and pt would like to see if [facility] can squeeze him in paramjit appt today 01/01. Clinic will have to call pt to reschedule if possible. Could we send this information to you in [employer] or would you prefer to receive a phone call?: Patient would prefer a phone call Okay to leave a detailed message?: Yes at Cell number on file: Telephone Information: Call taken on 01/02/2024 at 10:05 AM by Bere Denton documented in this encounter Plan of Treatment Upcoming Encounters Date Type Department Care Team (Late st Contact Info) Description 02/01/2024 3:00 PM MANAGER PRODUCT SUPPORT Office Visit [address] [phone] Manuel Ahn, [address] [place] [address] 02/02/2024 1:30 PM MANAGER PRODUCT SUPPORT Therapy Visit [facility] [address] [facility] [address] [place] [phone] Alicja Roldan, OT 909 [place] [address] 02/05/2024 8:00 PM MANAGER PRODUCT SUPPORT Therapy Visit [facility] [place] 6363 [facility] 103 [place] [phone] 02/13/2024 4:30 PM MANAGER PRODUCT SUPPORT Oncology Visit [facility] 909 [place] [phone] Marian Agustin, PUNCH MOLDER TELEMETRY REGISTERED NURSE 420 [facility] 207 [place], [place] [address] 03/01/2024 7:00 AM MANAGER PRODUCT SUPPORT Office Visit [facility] [address] [place] [phone] Estella Hassan, [facility] 3033 [place] [address] 03/23/2024 2:00 PM MANAGER PRODUCT SUPPORT Office Visit [facility] [address] [place] [phone] Lizet Mann PA-C 717 [place] [address] 03/29/2024 3:30 PM MANAGER PRODUCT SUPPORT Office Visit [facility] 2945 [facility] [address] [place] [phone] Hakeem Chacko MBBS 2945 [place] [address] 05/03/2024 3:00 PM MANAGER PRODUCT SUPPORT Office Visit [facility] [address] [place] [phone] Gaurav Valenzuela, PUNCH MOLDER BRIM EDGE TRIMMER [address] [place], [place] [address]E [facility] 106 [place], [place] [address] 05/22/2024 10:30 AM CDT Office Visit [facility] [address] [place] [address] Estella Hassan, [facility] [address] [place] [address] 05/22/2024 11:30 AM CDT Office Visit [facility] [address] [place] [address] [place] [address] [place] [address] documented as of this encounter [...] for health insurance by looking in to [employer] and talking with a FRW. Completed 3. I will look for a new job and will access resources that the [employer] offers. . Sarted new job 4. [...] Due or Overdue 20%(01/27/20 24 7:55 AM MANAGER PRODUCT SUPPORT) No Mitra Kendall LSW Note: Barriers: Life [...] documented as of this encounter Care Teams Squeegee Finisher Relationship Specialty [place] [address] [place] [address] PCP - General Family Practice 07/11/14 [place] [address] [place] [address] Assigned PCP 12/16/11 Christy Campuzano PA-C 4151 [place] [address] Referring Physician Family Medicine 04/22/20 [place] [address] [place] [address] Resident Pulmonary Disease 04/22/20 Estella Hassan, [facility] 3033 [place] [address] Pharmacist Pharmacist 05/26/20 Elaina Moreno MD [address] [place] [address] [phone] Cardiovascular & Thoracic Surgery 08/06/20 John Webb MD [address] [place] 672385 Cardiovascular Disease 08/25/21 John Webb MD [address] [place] [address] Cardiovascular Disease 08/25/21 Estella Hassan, [facility] 3033 [place] [address] Assigned MTM Pharmacist 12/09/21 Lindsay Carey OD [address] [place] [address] Ophthalmology 01/29/22 Richard Kam MD [address] [place] [address] 274185 Assigned Musculoskeletal Provider 08/14/22 [place] [address] BC PENA, [address] 004537 Assigned Neuroscience Provider 01/01/23 Rosemarie Mcdowell, RN Marketing Rep Diabetes Education 03/17/23 Ravi Brownlee MD [address] [place] [address] Assigned Heart and Vascular Provider 09/04/23 01/03/24 Mitra Kendall, CONTROL CLERK AUDITING Lead Air Traffic Coordinator Primary Care - CC 12/12/23 documented as of this encounter
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
--- OUTSIDE RECORDS SUMMARY | 2024-01-31 20:03 | XMS_ITS | Encounter Summary ---
Author Organization [place] Address [address] [place] [address] Care Team Providers Care Land Inspector Name Role Phone Va Glez MD Primary Care Provider [phone] Va Glez MD Unavailable Christy Campuzano PA-C Unavailable [phone] Hans Cannon MD Unavailable Estella Hassan [facility] Unavailable Josh Cordero MD, Elaina Unavailable [phone] John Webb MD Unavailable John Webb MD Unavailable [phone] Estella Hassan [facility] Unavailable [phone] Lindsay Carey OD Unavailable Richard Kam MD Unavailable Gaby Vila DO Unavailable [phone] Rosemarie Mcdowell RN Unavailable Ravi Brownlee MD Unavailable Mitra Kendall DIRECTOR BUILDING Unavailable [phone] Reason for Visit * Reason Onset Date Comments Medication Refill 01/01/2024 Medication ref ill / albuterol (PROAIR HFA/PROVENTIL HFA/VENTOLIN HFA) 108 (90 Base) MCG/ACT inhaler Encounter Details Date Type Department Care Team (Late st Contact Info) Description 01/01/2024 [facility] [address] [facility] [place] [phone] Estella Morales MD [address] [facility] [place] [address] Medication Refill (Medication refill / albuterol (PROAIR HFA/PROVENTIL HFA/VENTOLIN HFA) 108 (90 Base) MCG/ACT inhaler ) Social History Tobacco Use Types Packs/Day [...] Answer Date Recorded PHQ-2 Score 2 12/23/2023 [facility] [place] of Occupat ional Health - Occupational Stress [...] in an abandoned building, in an overnight detention, 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.) Yes 12/23/2023 Are you worried [...] on file 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 * Telephone Encounter - Cassandra Ferrer - 01/01/2024 5:36 AM CDT Medication Question or Refill What medication are you calling about (include dose and sig)?: albuterol (PROAIR HFA/PROVENTIL HFA/VENTOLIN HFA) 108 (90 Base) MCG/ACT inhaler Preferred Pharmacy[facility]/pharmacy #[id number] - [place], [place] - [address] EDUCATION FACULTY MEMBER OB EDUCATION FACULTY MEMBER [facility] [address] Controlled Substance Agreement on file: CSA -- Patient Level: CSA: None found at the patient level. Who prescribed the medication?: Estella Morales Do you need a refill? Yes When did you use the medication last? 12/29 Patient offered an appointment? No Do you have any questions or concerns? No Could we send this information to you in [facility] or would you prefer to receive a phone call?: Patient would prefer a phone call Okay to leave a detailed message?: Yes at Home number on file [phone] (home) documented in this encounter Plan of Treatment Upcoming Encounters Date Type Department Care Team (Late st Contact Info) Description 02/01/2024 3:00 PM HEAD TRACK COACH Office Visit [address] [phone] Manuel Ahn, [address] [place] [address] 02/02/2024 1:30 PM HEAD TRACK COACH Therapy Visit [facility] [address] [facility] [address] [place] [phone] Alicja Roldan, OT [address] [place] [address] 02/05/2024 8:00 PM HEAD TRACK COACH Therapy Visit [facility] [place] [address] [facility] 103 [place] [phone] 02/13/2024 4:30 PM HEAD TRACK COACH [facility]cology [facility] 9[address] [facility] [place] [phone] Marian Agustin, CLINIC MGR [facility] 420 [facility] 207 [place] [address] 03/01/2024 7:00 AM HEAD TRACK COACH Office Visit [facility] [address] [place] [phone] Estella Hassan, [facility] 30[address] [place] [address] 03/23/2024 2:00 PM HEAD TRACK COACH Office Visit [facility] [address] [place] [phone] Lizet Mann PA-C 717 [place], [place] [address] 03/29/2024 3:30 PM HEAD TRACK COACH Office Visit [facility] [address] [facility] [address] [place] [phone] Hakeem Chacko MBBS [address] [place] [address] 05/03/2024 3:00 PM HEAD TRACK COACH Office Visit [facility] [address] [place] [address] [phone] Gaurav Valenzuela, CLINIC MGR [facility] [address] [place] [address] 106 [place] [address] 05/22/2024 10:30 AM CDT Office Visit [facility] [address] [place] [address] Estella Hassan, [facility] [address] [place] [address] 05/22/2024 11:30 AM CDT Office Visit [facility] [address] [place] [phone] [place] [address] [place] [address] documented as of this encounter [...] for health insurance by looking in to [employer] and talking with a FRW. Completed 3. I will look for a new job and will access resources that the [employer] offers. . Sarted new job 4. [...] Due or Overdue 20%(01/27/20 24 7:55 AM HEAD TRACK COACH) No Mitra Kendall LSW Note: Barriers: Life [...] documented as of this encounter Care Teams Land Inspector Relationship Specialty [place] [address] [place] [address] PCP - General Family Practice 07/11/14 [place] [address] [place] [address] Assigned PCP 12/16/11 Christy Campuzano PA-C [address] [place] [address] Referring Physician Family Medicine 04/22/20 [place] [address] [place] [address] Resident Pulmonary Disease 04/22/20 Estella Hassan, [facility] [address] [place] [address] Pharmacist Pharmacist 05/26/20 Elaina Moreno MD [address] [place] [address] Cardiovascular & Thoracic Surgery 08/06/20 John Webb MD [address] [place] 24[address]15 Cardiovascular Disease 08/25/21 John Webb MD 6405 [facility] [place] 5[address] Cardiovascular Disease 08/25/21 Estella Hassan, [facility] [address] [place] [address] Assigned MTM Pharmacist 12/09/21 Lindsay Carey OD [address] [facility] [place] [place] [address] Ophthalmology 01/29/22 Richard Kam MD [address] [place] [address] 505525 Assigned Musculoskeletal Provider 08/14/22 [place] [address] 313477 Assigned Neuroscience Provider 01/01/23 Rosemarie Mcdowell, RN Harness Cleaner Diabetes Education 03/17/23 Ravi Brownlee MD [address] [place] [address] Assigned Heart and Vascular Provider 09/04/23 01/03/24 Mitra Kendall, DIRECTOR BUILDING Lead College Service Officer Primary Care - CC 12/12/23 documented as of this encounter
--- OUTSIDE RECORDS SUMMARY | 2024-01-31 20:03 | XMS_ITS | Encounter Summary ---
Author Organization [facility] Address [address] [place] [address] Care Team Providers Care Property Technician Name Role Phone Va Glez MD Primary Care Provider [phone] Va Glez MD Unavailable Christy Campuzano PAUniqueC Unavailable [phone] Hans Cannon MD Unavailable Estella Hassan [facility] Unavailable Josh Cordero MD, Madhuri Unavailable [phone] John Webb MD Unavailable [phone] John Webb MD Unavailable [phone] Estella Hassan [facility] Unavailable Lindsay Carey OD Unavailable Richard Kam MD Unavailable Gaby Vila DO Unavailable [phone] Rosemarie Mcdowell RN Unavailable Mitra Kendall [employer]OX MAKER [employer]OD Unavailable Lizet Mann PA-C Unavailable Ravi Brownlee MD Unavailable Nav Hughes MD Unavailable [phone] Manuel Ahn OD Unavailable [phone] Reason for Referral * Mental Health Outpatient (Routine: Next available opening) - Pending Review Specialty Diagnoses / Procedures Referred By Mireille gonzalez Referred To Contact Diagnoses LUZ (generalized [place] [address] [place] [address] Phone: tel: fax: Referral ID Status Reason Start Date Expiration Date V isits Requested Visits Authorized [id number] Pending Review 01/05/2024 01/04/2025 1 1 Question Answer Services: Assess/Evaluate for appropriate service (non-medication assessment) My Clinical Question Is: therapy, [facility] Patient Scheduling Instructions: [facility] will call you to coordinate your care as prescribed by your provider. If you don't hear from a off premise service representative within 2 business days, please call . Only select yes if the patient has already been scheduled and requires a referral for insurance. If yes is selected, the referral will NOT route to scheduling for outreach. No Comments Please be aware that coverage of these services is subject to the terms and limitations of your health insurance plan. Call member services at your health plan with any benefit or coverage questions. [facility] will call you to coordinate your care as prescribed by your provider. If you don't hear from a off premise service representative within 2 business days, please call . Reason for Visit * Reason Comments Medication Therapy Management Encounter Details Date Type Department Care Team (Late st Contact Info) Description 01/05/2024 7:30 AM CDT Office Visit [facility] [address] [place] [phone] Estella Hassan, [facility] [address] [place] [id number] Type 2 diabetes mellitus without complication, without long-term current use of insulin (H) (Primary Dx); LUZ (generalized anxiety disorder); Morbid obesity due to excess calories (H); Major depressive disorder, recurrent episode, moderate (H) Social History Tobacco Use Types Packs/Day [...] re latives? 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 Gender Identity Not on file Sexual Orientation Not on file Occupation Industry Job Start Date Job End Date Not on file Not on file Not on file Not on file documented as of this encounter Last Filed Vital Signs Vital Sign Reading Time Taken Comments Blood Pressure - - Pulse - - Temperature - - Respiratory Rate - - Oxygen Saturation - - Inhaled Oxygen Concentration - - Weight 134.7 kg (297 lb) 01/05/2024 7:28 AM CDT Height - - Body Mass Index 43.86 01/02/2024 2:49 PM CDT documented in this encounter Patient Instructions * Patient Instructions* Estella Hassan, [facility] - 01/05/2024 7:30 AM CDT Recommendations from today's MTM visit: Increase glipizide XL to 20 mg once daily. Restart Ozempic michael at 9 clicks once a week for 2 weeks then 18 clicks weekly for 2 weeks then increase to 37 clicks weekly if no side effects. It was great speaking with you today. I value your experience and would be very thankful for your time in providing feedback in our clinic survey. In the next few days, you may receive an email or text message from [employer] with a link to a survey related to your ???clinical pharmacist. To schedule another MTM appointment, please call the clinic directly or you may call the MTM scheduling line at [phone] or toll-free at . My Clinical Pharmacist's contact information: Please feel free to contact me with any questions or concerns you have. Estella Hassan, PharmD, BCACP Medication Therapy Management Provider, [facility] documented in this encounter Progress Notes * Estella Hassan RPH - 01/05/2024 7:30 AM CDT Medication Therapy Management (MTM) Encounter ASSESSMENT: Medication Adherence/Access: See below for considerations. Discussed importance of picking up Ozempic on time every month to take otherwise would need to change medication. Diabetes /Obesity Recommend restart Ozempic michael and discussed importance of taking this on time each week and continuing adherence to all his medications. CGM sensor application today and educated on how to use further. Also will increase glipizide dose in the meantime due to worsened A1c since he has been out of Oz empic and will not have for another week. Anxiety and Depression Discussed coping mechanisms and psych referral for evaluation/therapy. PLAN: Increase glipizide XL to 20 mg once daily. Restart Ozempic at 9 clicks ~0.25 mg once a week for 2 weeks then 18 clicks ~0.5 mg weekly for 2 weeks then increase to 37 clicks ~1 mg weekly if no side effects. Follow-up: Return in about 3 weeks (around 01/26/2024) for Medication Therapy Management Pharmacist. SUBJECTIVE/OBJECTIVE: Peter Devi is a 63 year old male seen for a follow-up visit. Reason for visit: elevated A1c. CGM application today. Allergies/ADRs: Reviewed in chart Past Medical History: Reviewed in chart Tobacco: He reports that he quit smoking about 40 years ago. His smoking use included cigarettes. He has been exposed to tobacco smoke. He has never used smokeless tobacco. Alcohol: not currently using Medication Adherence/Access: He has been without Ozempic due to cost. He is having memory concerns and forgetfulness but states he remembers his medication doses or takes late and doesn't miss completely Diabetes /Obesity Metformin 2000 mg daily with supper Ozempic 1 mg weekly - has not taken for a month due to cost but he states is affordable and will curing pickling packer next week to restart again Glipizide XL 10 mg daily He reports no side effects. Current symptoms: none Diet/Exercise: Did not discuss in detail due to time. Previous visit: Drinking a lot of pop late atnight, but has tried to be more mindful of caffeine content, drinking more 7-up, larisa, and propel. Eating mostly canned food, tuna and chicken salad a lot. Drives for work which hinders his ability toexercise regularly. Blood sugar monitoring: none, CGM sensor application today, last one fell off early after 1 hour Eye exam in the last 12 months? No Foot exam is up to date Mental Health Anxiety and Depression Escitalopram 10 mg once daily. Patient reports no current medication side effects. Worsened anxiety lately due to financial stressors and difficulties at home. He is tearful in office today. He has had thoughts once or twice of wishing he were but reports he would not hurt himself in anyway and he wouldn't want this for hisfamily. He is able to manage due to spending time with family and grandson. Patient is not seeing a therapist. Used to see one in [place]. Patient is not seeing a psychiatrist. Today's Vitals: Wt 297 lb (134.7 kg) BMI 43.86 kg/m?? I spent 40 minutes with this patient today. All changes were made via collaborative practice agreement with Va Glez MD. A copy of the visit note was provided to the patient's provider(s). A summary of these recommendations was given to the patient. Estella Hassan, PharmD, BCACP Medication Therapy Management Provider, [facility] [phone] Medication Therapy Recommendations Type 2 diabetes mellitus with hyperglycemia, without long-term current use of insulin (H) 1 Current Medication: Semaglutide, 2 MG/DOSE, (OZEMPIC) 8 MG/3ML pen Current Medication Sig: Inject 2 mg subcutaneously every 7 days Rationale: Patient prefers not to take - Adherence - Adherence Recommendation: Provide Adherence Intervention - Ozempic (2 MG/DOSE) 8 MG/3ML Sopn Status: Patient Agreed - Adherence/Education Identified Date: 01/05/2024 Completed Date: 01/05/2024 2 Current Medication: glipiZIDE (GLUCOTROL XL) 10 MG 24 hr tablet Current Medication Sig: Take 2 tablets (20 mg) by mouth daily. Rationale: Dose too low - Dosage too low - Effectiveness Recommendation: Increase Dose - glipiZIDE XL 10 MG 24 hr tablet Status: Accepted per CPA Identified Date: 01/05/2024 Completed Date: 01/05/2024 documented in this encounter Plan of Treatment Upcoming Encounters Date Type Department Care Team (Late st Contact Info) Description 02/01/2024 3:00 PM IOS DEVELOPER Office Visit [facility] [address] [place] [address] [phone] Manuel Ahn, [address] [place] [address] 02/02/2024 1:30 PM IOS DEVELOPER Therapy Visit [facility] [address] [facility] [address] [place] [phone] Alicja Roldan, OT [address] [place], [place] [phone] 02/05/2024 8:00 PM IOS DEVELOPER Therapy Visit [facility] [place] [address] [facility] [address] [place] [phone] 02/13/2024 4:30 PM IOS DEVELOPER Oncology Visit [facility] 9[address] [place] [address] Marian Agustin APRN [facility] [address] [place] [address] [facility] [address] [place] [address] 03/01/2024 7:00 AM IOS DEVELOPER Office Visit [facility] [address] [place] [phone] Estella Hassan, [facility] [address] [place] [address] 03/23/2024 2:00 PM IOS DEVELOPER Office Visit [facility] [address] [place] [phone] Lizet Mann PA-C [address] [facility] [place] [address] 03/29/2024 3:30 PM IOS DEVELOPER Office Visit [facility] [address] [facility] [address] [place] [address] Hakeem Chacko MBBS [address] [place] [address] 05/03/2024 3:00 PM IOS DEVELOPER Office Visit [address] [phone] Gaurav Valenzuela, HOT MILL OPERATOR [facility] [address] [place] [address] 05/22/2024 10:30 AM CDT Office Visit [address] [phone] Estella Hassan, [facility] [address] [place] [address] 05/22/2024 11:30 AM CDT Office Visit [facility] [address] [place] [address] [place] [address] [place], [place] [phone] Scheduled Referrals Name Type Priority Associated Diagnoses Orde r Schedule Adult Mental Health Manager Competitive Intelligence Referral Referral Routine: Next available opening LUZ (generalized anxiety disorder) Expected: 01/05/2024 (Approximate), Expires: 01/04/2025 documented as of this encounter Goals Goal [...] for health insurance by looking in to [employer] and talking with a FRW. Completed 3. I will look for a new job and will access resources that the [employer] offers. . Sarted new job 4. Continue to use Single Care to reduce the cost of my prescriptions. Create an action plan to increase financial stability Care Plan Patient expresses financial resource strain No Josefina Patel Establish Regular Follow-Ups with PCP Care Plan HbA1C Not In Goal No Baeyen, Rosemarie A, RN Get HbA1C Level in Goal [...] Self-Management Education Needed to Optimize Self-Care Behaviors Rosemarei Rendon RN Healthy Coping - use available resources to cope with the challenges of managing diabetes Care Plan Diabetes Self-Management Education Needed to Optimize Self-Care Behaviors Rosemarie Rendon RN Become up-to-date with health maintenance visit(s) Care Plan Health Maintenance Due or Overdue 20%(01/27/20 24 7:55 AM IOS DEVELOPER) No Mitra Kendall LSW Note: Barriers: Life [...] long-term current use of insulin (H)- Primary LUZ (generalized anxiety disorder) Generalized anxiety disorder Morbid obesity due to excess calories (H) Major depressive disorder, recurrent episode, moderate (H) Major depressive disorder, recurrent episode, moderate documented in this encounter Additional Health Concerns [...] documented as of this encounter Care Teams Property Technician Relationship Specialty [place] [address] [place] [address] PCP - General Family Practice 07/11/14 [place] [address] [place] [address] Assigned PCP 12/16/11 Christy Campuzano PA-C [address] [place] [address] Referring Physician Family Medicine 04/22/20 Hans Cannon MD [address] [place] [address] Resident Pulmonary Disease 04/22/20 Estella Hassan, [facility] [address] [place] [address] Pharmacist Pharmacist 05/26/20 Elaina Moreno MD [address] [place] [address] Cardiovascular & Thoracic Surgery 08/06/20 John Webb MD [address] [place] 397605 Cardiovascular Disease 08/25/21 John Webb MD [address] [place] 165335 Cardiovascular Disease 08/25/21 Estella Hassan, [facility] [address] [place] [address] Assigned MTM Pharmacist 12/09/21 Lindsay Carey OD [address] [facility] [place] [address] Ophthalmology 01/29/22 Richard Kam MD [address] [place] [address] [phone] Assigned Musculoskeletal Provider 08/14/22 [place] [address] 044397 Assigned Neuroscience Provider 01/01/23 Rosemarie Mcdowell, RN Sh[facility] Sorter Diabetes Education 03/17/23 Mitra Kendall, BOX MAKER WOOD Lead Bush And Vine Farmer [employer] Primary Care - CC 12/12/23 Lizet Mann PA-C 7[address] [place], [place] 969165 Assigned Cancer Care Provider 01/04/24 Ravi Brownlee MD [address] [facility] [address] [place], [place] 105105 Assigned Pulmonology Provider 01/04/24 Nav Hughes MD [address] [facility] [address] [place] [address] Assigned Heart and Vascular Provider 01/04/24 Manuel Ahn OD [address] [facility] [place] [address] Disk Recoater 01/05/24 documented as of this encounter
--- OUTSIDE RECORDS SUMMARY | 2024-01-31 20:03 | XMS_ITS | Encounter Summary ---
Author Organization [facility] Address [address] [place] [address] Care Team Providers Care Director Of Advertising Sales Name Role Phone Va Glez MD Primary Care Provider Va Glez MD Unavailable Christy Campuzano PA-C Unavailable [phone] Hans Cannon MD Unavailable [phone] Estella Hassan [facility] Unavailable [phone] Josh Cordero MD, Elaina Unavailable [phone] John Webb MD Unavailable John Webb MD Unavailable [phone] Estella Hassan [facility] Unavailable Lindsay Carey OD Unavailable Richard Kam MD Unavailable Gaby Vila DO Unavailable [phone] Rosemarie Mcdowell RN Unavailable Ravi Brownlee MD Unavailable [phone] Mitra Kendall CONDUCTOR FREIGHT Unavailable [phone] Reason for Visit * Reason Comments Medication Refill Encounter Details Date Type Department Care Team (Late st Contact Info) Description 01/02/[address] [phone] Estella Morales MD [address] [facility] [place] [address] Medication Refill Social History Tobacco Use Types [...] re latives? Once a week 12/23/2023 Attends [employer] Not on file 12/22 Active Member [...] Answer Date Recorded PHQ-2 Score 2 12/23/2023 [facility] of Occupat ional Health - Occupational Stress [...] file Legal 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 MANAGER SECURITY Gender Identity Not on file Sexual Orientation Not on file Occupation Industry Job Start Date Job End Date Not on file Not on file Not on file Not on file documented as of this encounter Miscellaneous Notes * Telephone Encounter - Brad Bartholomew RN - 01/03/2024 3:37 PM CDT Duplicate - prescription request refused. documented in this encounter Plan of Treatment Upcoming Encounters Date Type Department Care Team (Late st Contact Info) Description 02/01/2024 3:00 PM MANAGER SECURITY Office Visit [address] [place] [phone] Manuel Ahn, [address] [place] [address] 02/02/2024 1:30 PM MANAGER SECURITY Therapy Visit [facility] Specialty [place] [address] [facility] [address] [place] [phone] Alicja Roldan, OT 909 [place] [address] 02/05/2024 8:00 PM MANAGER SECURITY Therapy Visit [facility] [place] [address] [facility] 103 [place] [phone] 02/13/2024 4:30 PM MANAGER SECURITY [facility]cology [facility] 909 [place] [phone] Marian Agustin, SOFTWARE RELEASE MANAGER [facility] 420 [facility] 207 [place] [address] 03/01/2024 7:00 AM MANAGER SECURITY Office Visit [facility] [address] [place] [phone] Estella Hassan, [facility] 30[address] [place] [address] 03/23/2024 2:00 PM MANAGER SECURITY Office Visit [facility] [address] [place] [address] [place] [phone] Lizet Mann PA-C 717 [place] [address] 03/29/2024 3:30 PM MANAGER SECURITY Office Visit [facility] [address] [facility] [address] [place] [phone] Hakeem Chacko MBBS 2945 [place] [address] 05/03/2024 3:00 PM MANAGER SECURITY Office Visit [place] [address] [place] [phone] Gaurav Valenzuela, SOFTWARE RELEASE MANAGER [facility] [address] [address] 05/22/2024 10:30 AM CDT Office Visit [facility] [address] [place] [phone] Estella Hassan, [facility] [address] [place] [address] 05/22/2024 11:30 AM CDT Office Visit [facility] [address] [place] [phone] [place] [address] [place] [address] documented as of this encounter [...] 10:17 AM CDT) No Enoch, Mitra K, CONDUCTOR FREIGHT Note: Updated on 05/25/22 Barriers: Currently not working.Doesn't have insurance Strengths: Getting SSD. Patient expressed understanding of goal: Action steps to achieve this goal: 1. I will apply for unemployment. Decided not to 2. I will explore my options for health insurance by looking in to [employer] and talking with a FRW. Completed 3. I will look for a new job and will access resources that the [employer] offers. . Sarted new job 4. Continue [...] or Overdue 20%(01/27/20 24 7:55 AM MANAGER SECURITY) No Mitra Kendall LSW Note: Barriers: Life [...] accurate information and submit it to the [facility]. 3. I will update CCC Team at outreach. HbA1C Not In Goal 04/28/2023 Diabetes Self-Management Edu cation Needed to Optimize Self-Care Behaviors 04/28/2023 Health Maintenance Due or Overdue 12/16/2023 Assessment Noted Time PHQ-9 Depression Total Score: 9 12/23/19 24 12:36 PM CDT documented as of this encounter Care Teams Director Of Advertising Sales Relationship Specialty [place] [address] [place] [address] PCP - General Family Practice 07/11/14 [place] [address] [place] [address] Assigned PCP 12/16/11 Christy Campuzano PA-C [address] [place] [address] 876212 Referring Physician Family Medicine 04/22/20 Hans Cannon MD [address] [place] [address] 213812 Resident Pulmonary Disease 04/22/20 Estella Hassan, [facility] [address] [place] [address] [phone] Pharmacist Pharmacist 05/26/20 Elaina Moreno MD 909 [place], [place] 562985 Cardiovascular & Thoracic Surgery 08/06/20 John Webb MD [address] [place] 2[address] Cardiovascular Disease 08/25/21 John Webb MD [address] [place] 395875 Cardiovascular Disease 08/25/21 Estella Hassan, [facility] [address] [place] [address] 850696 Assigned MTM Pharmacist 12/09/21 Lindsay Carey OD [address] [place] [address] Ophthalmology 01/29/22 Richard Kam MD [address] [place] [address] Assigned Musculoskeletal Provider 08/14/22 [place] [address] [facility], [address] [address] Assigned Neuroscience Provider 01/01/23 Rosemarie Mcdowell, RN Acid Tender Diabetes Education 03/17/23 Ravi Brownlee MD [address] [place] [address] 276 [place], [place] 301765 Assigned Heart and Vascular Provider 09/04/23 01/03/24 Mitra Kendall, CONDUCTOR FREIGHT Lead Universal Grinder Set Up Operator Primary Care - CC 12/12/23 documented as of this encounter
--- OUTSIDE RECORDS SUMMARY | 2024-01-31 20:03 | XMS_ITS | Encounter Summary ---
Author Organization [facility] Address [address] [place] [address] Care Team Providers Care Administrative Intern Name Role Phone Va Glez MD Primary Care Provider [phone] Va Glez MD Unavailable Christy Campuzano PA-C Unavailable [phone] Hans Cannon MD Unavailable Estella Hassan [facility] Unavailable Josh Cordero MD, Elaina Unavailable [phone] John Webb MD Unavailable John Webb MD Unavailable [phone] Estella Hassan [facility] Unavailable Lindsay Carey OD Unavailable Richard Kam MD Unavailable Gaby Vila DO Unavailable [phone] Rosemarie Mcdowell RN Unavailable Ravi Brownlee MD Unavailable [phone] Mitra Kendall TASSEL MAKING MACHINE OPERATOR Unavailable [phone] Encounter Details Date Type Department Care Team (Late st Contact Info) Description 12/30/[address] [place] [address] Estella Morales MD [facility] [facility] [address] Social History Tobacco Use Types Packs/Day Years [...] re latives? Once a week 12/23/2023 Attends Baptism Services Not on file 12/22 Active Member [...] Answer Date Recorded PHQ-2 Score 2 12/23/2023 [facility]at [facility] - Occupational [...] on file Legal 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 SOLAR ENERGY SPECIALIST Gender Identity Not on file Sexual Orientation Not on file Occupation Industry Job Start Date Job End Date Not on file Not on file Not on file Not on file documented as of this encounter Plan of Treatment Upcoming Encounters Date Type Department Care Team (Late st Contact Info) Description 02/01/2024 3:00 PM SOLAR ENERGY SPECIALIST Office Visit [facility] Zeeshan [address] [facility] [place] [address] Manuel Ahn, 8992 [facility] [place] [address] 02/02/2024 1:30 PM SOLAR ENERGY SPECIALIST Therapy Visit [facility] [address] [facility] [address] [place] [address] Alicja Roldan, OT 909 [place] [address] 02/05/2024 8:00 PM SOLAR ENERGY SPECIALIST Therapy Visit [facility] [place] 6363 [facility] 103 [place] [phone] 02/13/2024 4:30 PM SOLAR ENERGY SPECIALIST Oncology Visit [facility] 909 [place] [phone] Marian Agustin APRN [facility] 420 [facility] 207 [place] [address] 03/01/2024 7:00 AM SOLAR ENERGY SPECIALIST Office Visit [facility] [address] [place] [phone] Estella Hassan, [facility] 3033 [place] [address] 03/23/2024 2:00 PM SOLAR ENERGY SPECIALIST Office Visit [facility] [address] [place] [phone] Lizet Mann PA-C 717 [place] [address] 03/29/2024 3:30 PM SOLAR ENERGY SPECIALIST Office Visit [facility] 2945 [facility] 200 [place] [phone] Hakeem Chacko MBBS 2945 [place] [address] 05/03/2024 3:00 PM SOLAR ENERGY SPECIALIST Office Visit [facility] 606 [address], [place] [phone] Gaurav Valenzuela, PHARMACY DATA ANALYST PARACHUTE INSPECTOR [address] [place] 106 [place] [address] 05/22/2024 10:30 AM CDT Office Visit [facility] [address] [place] [phone] Estella Hassan, [facility] [address] [place] [address] 05/22/2024 11:30 AM CDT Office Visit [facility] [address] [place] [address] [place] [address] [place] [address] documented as of this encounter [...] for health insurance by looking in to [employer] and talking with a FRW. Completed 3. I will look for a new job and will access resources that the [employer] offers. . Sarted new job 4. Continue [...] Due or Overdue 20%(01/27/20 24 7:55 AM SOLAR ENERGY SPECIALIST) No Mitra Kendall LSW Note: Barriers: Life [...] accurate information and submit it to the [facility]. 3. I will update CCC Team at outreach. HbA1C Not In Goal 04/28/2023 Diabetes Self-Management Edu cation Needed to Optimize Self-Care Behaviors 04/28/2023 Health Maintenance Due or Overdue 12/16/2023 Assessment Noted Time PHQ-9 Depression Total Score: 9 12/23/19 24 12:36 PM CDT documented as of this encounter Care Teams Administrative Intern Relationship Specialty [place] [address] [place] [address] PCP - General Family Practice 07/11/14 [place] [address] [place] [address] Assigned PCP 12/16/11 Christy Campuzano PA-C [address] [place] [address] Referring Physician Family Medicine 04/22/20 Hans Cannon MD [address] [place] [address] Resident Pulmonary Disease 04/22/20 Estella Hassan, [facility] [address] [place] [address] Pharmacist Pharmacist 05/26/20 Elaina Moreno MD [address] [place] [address] Cardiovascular & Thoracic Surgery 08/06/20 John Webb MD [address] [place] [address] Cardiovascular Disease 08/25/21 John Webb MD [address] [place] [id number] Cardiovascular Disease 08/25/21 Estella Hassan, [facility] [address] [place] [address] Assigned MTM Pharmacist 12/09/21 [place] [address] [place] [address] [place] ROMO [address] Ophthalmology 01/29/22 Richard Kam MD [address] [place] [address] Assigned Musculoskeletal Provider 08/14/22 [place] [address] BC PENA, [address] [address] Assigned Neuroscience Provider 01/01/23 Rosemarie Mcdowell, RN Primer Press Operator Diabetes Education 03/17/23 Ravi Brownlee MD [address] [place] [address] [phone] Assigned Heart and Vascular Provider 09/04/23 01/03/24 Mitra Kendall, TASSEL MAKING MACHINE OPERATOR Lead Lipstick Molder Primary Care - CC 12/12/23 documented as of this encounter
--- OUTSIDE RECORDS SUMMARY | 2024-01-31 20:04 | XMS_ITS | Encounter Summary ---
Author Organization [facility] Address [address] [place] [address] Care Team Providers Care Telegraph Dispatcher Name Role Phone Va Glez MD Primary Care Provider [phone] Va Glez MD Unavailable Christy CampuzanoC Unavailable [phone] Hans Cannon MD Unavailable [phone] Estella Hassan [facility] Unavailable Josh Cordero MD, Madhuri Unavailable [phone] John Webb MD Unavailable John Webb MD Unavailable Estella Hassan [facility] Unavailable Lindsay Carey OD Unavailable Richard Kam MD Unavailable Gaby Vila DO Unavailable Rosemarie Mcdowell RN Unavailable Ravi Brownlee MD Unavailable Mitra Kendall OUTCOMES ANALYST Unavailable [phone] Lizet MannC Unavailable Ravi Brownlee MD Unavailable Nav Hughes MD Unavailable [phone] AnabelleManuel OD Unavailable Arabella Fishman MA Unavailable [phone] Thalia Charles [facility] Unavailable Unavailable Encounter Details Date Type Department Care Team (Late st Contact Info) Description 12/29/2023 MyC Medical Advice [address] [address] Estella Hassan, [facility] 3038 [place], [place] [id number] Social History Tobacco Use Types Packs/Day Years [...] re latives? Once a week 12/23/2023 Attends Tenriism Services Not on file 12/22 Active Member [...] Answer Date Recorded PHQ-2 Score 2 12/23/2023 [facility] of Occupat ional Health - Occupational Stress [...] on file Legal 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 PUNCH HAND Gender Identity Not on file Sexual Orientation Not on file Occupation Industry Job Start Date Job End Date Not on file Not on file Not on file Not on file documented as of this encounter Plan of Treatment Upcoming Encounters Date Type Department Care Team (Late st Contact Info) Description 02/01/2024 3:00 PM PUNCH HAND Office Visit [facility] Zeeshan 6341 [facility] [place] [phone] Manuel Ahn 6341 [facility] [place] [address] 02/02/2024 1:30 PM PUNCH HAND Therapy Visit [facility] [address] [facility] [address] [place] [phone] Alicja Roldan, OT 909 [place] [address] 02/05/2024 8:00 PM PUNCH HAND Therapy Visit [facility] [place] 6363 [facility] 103 [place] [phone] 02/13/2024 4:30 PM PUNCH HAND Oncology Visit [facility] 909 [place] [phone] Marian Agustin, DIRECTOR HEART DENTAL LABORATORY TECHNICIAN APPRENTICE 420 [facility] 207 [place], [place] 3140[address] 03/01/2024 7:00 AM PUNCH HAND Office [facility] [address] [place] [phone] Estella Hassan, [facility] 3033 [place] [address] 03/23/2024 2:00 PM PUNCH HAND Office Visit [facility] [address]05 [facility] [place] [phone] Lizet Mann PA-C 717 [facility] [place] [address] 03/29/2024 3:30 PM PUNCH HAND Office Visit [facility] 2945 [facility] [address] [place] [address] Hakeem Chacko MBBS 2945 [place] [address] 05/03/2024 3:00 PM PUNCH HAND Office Visit [address] [phone] Gaurav Valenzuela, [facility] [address] [place] [address] 05/22/2024 10:30 AM CDT Office [facility] [address] [place] [phone] Estella Hassan, [facility] 3033 [place] [address] 05/22/2024 11:30 AM CDT Office [facility] [address] [place] [phone] [place] [address] [place] [address] documented as of this encounter Goals Goal Patient Goal Type Associated Problems Recent Progress Patient-Stated? Author Health Maintenance Care Plan HP GENERAL PROBLEM 100%( 023 10:17 AM CDT) No Mitra Kendall, OUTCOMES ANALYST Note: Update on 05/25/22 Barriers: Currently without [...] 023 10:17 AM CDT) No Mitra Kendall, OUTCOMES ANALYST Note: Updated on 05/25/22 Barriers: Currently not working.Doesn't have insurance Strengths: Getting SSD. Patient expressed understanding of goal: Action steps to achieve this goal: 1. I will apply for unemployment. Decided not to 2. I will explore my options for health insurance by looking in to [employer] and talking with a FRW. Completed 3. I will look for a new job and will access resources that the [employer] offers. . Sarted new job 4. [...] Due or Overdue 20%(01/27/20 24 7:55 AM PUNCH HAND) No Mitra Kendall LSW Note: Barriers: Life [...] accurate information and submit it to the [facility]. 3. I will update CCC Team at outreach. HbA1C Not In Goal 04/28/2023 Diabetes Self-Management Edu cation Needed to Optimize Self-Care Behaviors 04/28/2023 Health Maintenance Due or Overdue 12/16/2023 Infection Onset Date Last Indicated Resolved Time Rule Out COVID-19 12/27/2023 12/27/2023 12/29/2023 1:37 PM CDT Assessment Noted Time PHQ-9 Depression Total Score: 9 12/23/19 24 12:36 PM CDT documented as of this encounter Care Teams Telegraph Dispatcher Relationship Specialty [place] [address] [place] [address] PCP - General Family Practice 07/11/14 [place] [address] [place] [address] Assigned PCP 12/16/11 Christy Campuzano PA-C [address] [place] [address] Referring Physician Family Medicine 04/22/20 Hans Cannon MD [address] [place] [address]57 Resident Pulmonary Disease 04/22/20 Estella Hassan, [facility] [place] 115856 Pharmacist Pharmacist 05/26/20 Elaina Moreno MD 9 [place] [address] Cardiovascular & Thoracic Surgery 08/06/20 John Webb MD 6405 [place] [address] Cardiovascular Disease 08/25/21 John Webb MD 6405 [place] 067865 Cardiovascular Disease 08/25/21 Estella Hassan, [facility] [place] [address] Assigned MTM Pharmacist 12/09/21 Lindsay Carey OD [address] [place] [address] Ophthalmology 01/29/22 Richard Kam MD [address] [place] [address] [id number] Assigned Musculoskeletal Provider 08/14/22 [place] [address] [facility] [address] 384457 Assigned Neuroscience Provider 01/01/23 Rosemarie Mcdowell RN Director Audience Marketing Diabetes Education 03/17/23 Ravi Brownlee MD [address] [place] [address] 863205 Assigned Heart and Vascular Provider 09/04/23 01/03/24 Mitra Kendall, OUTCOMES ANALYST Lead Relay Engineer Primary Care - CC 12/12/23 Lizet Mann PA-C [address] [place] [address] Assigned Cancer Care Provider 01/04/24 Ravi Brownlee MD [address] [place] [address] 196175 Assigned Pulmonology Provider 01/04/24 Nav Hughes MD [address] [place] 34[place] [place] 070395 Assigned Heart and Vascular Provider 01/04/24 Manuel Ahn, ARA 6341 [place] [address] Senior Director Insight 01/05/24 Arabella Fishman MA Financial Resource Worker 01/06/24 Thalia Chrales [facility] Pharmacist Pharmacy 01/26/24 documented as of this encounter
--- OUTSIDE RECORDS SUMMARY | 2024-01-31 20:04 | XMS_ITS | Encounter Summary ---
Author Organization [facility] Address [address] [place] [address] Care Team Providers Care Lunchroom Attendant Name Role Phone Va Glez MD Primary Care Provider Va Glez MD Unavailable Christy Campuzano PA-C Unavailable [phone] Hans Cannon MD Unavailable Estella Hassan [facility] Unavailable Josh Cordero MD, Madhuri Unavailable [phone] John Webb MD Unavailable John Webb MD Unavailable Estella Hassan [facility] Unavailable [phone] Lindsay Carey OD Unavailable Richard Kam MD Unavailable Gaby Vila DO Unavailable [phone] Rosemarie Mcdowell RN Unavailable Ravi Brownlee MD Unavailable [phone] Mitra Kendall DISH CLOTH INSPECTOR Unavailable [phone] Encounter Details Date Type Department Care Team (Latest Contact Info) Description 12/23/2023 Travel Social History Tobacco Use Types Packs/Day [...] re latives? Once a week 12/23/2023 Attends Jewish Services Not on file 12/22 Active Member [...] PHQ-2 Score 2 12/23/2023 [facility] [place] of Occupat ional Health - Occupational Stress [...] on file Legal 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 TANK CAR LOADER Gender Identity Not on file Sexual Orientation Not on file Occupation Industry Job Start Date Job End Date Not on file Not on file Not on file Not on file documented as of this encounter Plan of Treatment Upcoming Encounters Date Type Department Care Team (Late st Contact Info) Description 02/01/2024 3:00 PM TANK CAR LOADER Office Visit [address] [phone] Manuel Ahn, 6341 [place] [address] 02/02/2024 1:30 PM TANK CAR LOADER Therapy Visit [facility] [place] [address] [facility] [address] [place] [phone] Alicja Roldan, OT 909 [place], [place] 056[address] 02/05/2024 8:00 PM TANK CAR LOADER Therapy Visit [facility] 6363 [facility] 103 [place] [address] 02/13/2024 4:30 PM TANK CAR LOADER [facility] 909 [facility] [place] [phone] Marian Agustin, [facility] 420 [facility] 207 [place] [address] 03/01/2024 7:00 AM TANK CAR LOADER Office Visit [facility] [address] [place] [phone] Estella Hassan, [facility] 3033 [place] [address] 03/23/2024 2:00 PM TANK CAR LOADER Office Visit [facility] [address] [place] [address] [place] [address] Lizet Mann PA-C 717 [facility] [place] [address] 03/29/2024 3:30 PM TANK CAR LOADER Office Visit [facility] 2945 [facility] 200 [place] [phone] Hakeem Chacko MBBS 2945 [place] [address] 05/03/2024 3:00 PM TANK CAR LOADER Office Visit [facility] [address] [place] [phone] Gaurav Valenzuela, SPRING LAYER [facility] [address] [place] [address] 05/22/2024 10:30 AM CDT Office [facility] [address] [place] [phone] Estella Hassan, [facility] [address] [place] [address] 05/22/2024 11:30 AM CDT Office [facility] [address] [place] [phone] [place] [address] [place], [place] [phone] documented as of this encounter Goals Goal [...] for health insurance by looking in to [employer] and talking with a FRW. Completed 3. I will look for a new job and will access resources that the [employer] center offers. . Sarted new job 4. [...] Due or Overdue 20%(01/27/20 24 7:55 AM TANK CAR LOADER) No Mitra Kendall LSW Note: Barriers: [...] documented as of this encounter Care Teams Lunchroom Attendant Relationship Specialty [place] [address] [place] [address] PCP - General Family Practice 07/11/14 [place] [address] [place] [address] Assigned PCP 12/16/11 Christy Campuzano PA-C [address] [place] [address] 683852 Referring Physician Family Medicine 04/22/20 Hans Cannon MD [address] [place] [address] Resident Pulmonary Disease 04/22/20 Estella Hassan, [facility] [address] [place] [address] Pharmacist Pharmacist 05/26/20 Elaina Moreno MD [address] [place] [address] 015365 Cardiovascular & Thoracic Surgery 08/06/20 John Webb MD [address] [place] [place] 700725 Cardiovascular Disease 08/25/21 John Webb MD [address] [place] 629645 Cardiovascular Disease 08/25/21 Estella Hassan, [facility] 3033 [place] [address] Assigned MTM Pharmacist 12/09/21 Lindsay Carey OD [address] [facility] [place] [address] Ophthalmology 01/29/22 Richard Kam MD [address] [place] [address] [phone] Assigned Musculoskeletal Provider 08/14/22 [place] [address] BC PENA, [address] 172367 Assigned Neuroscience Provider 01/01/23 Rosemarie Mcdowell RN Senior Loan Officer Diabetes Education 03/17/23 Ravi Brownlee MD [address] [place] [address] Assigned Heart and Vascular Provider 09/04/23 01/03/24 Mitra Kendall, DISH CLOTH INSPECTOR Lead Wrapper Hand Primary Care - CC 12/12/23 documented as of this encounter
--- OUTSIDE RECORDS SUMMARY | 2024-01-31 20:04 | XMS_ITS | Encounter Summary ---
Author Organization [facility] Address [address] [place] [address] Care Team Providers Care Test Development Engineer Name Role Phone Va Glez MD Primary Care Provider Va Glez MD Unavailable Christy Campuzano PA-C Unavailable [phone] Hans Cannon MD Unavailable Estella Hassan [facility] Unavailable [phone] Josh Cordero MD, Madhuri Unavailable [phone] John Webb MD Unavailable [phone] John Webb MD Unavailable [phone] Estella Hassan [facility] Unavailable Lindsay Carey OD Unavailable [phone] Richard Kam MD Unavailable Gaby Vila DO Unavailable [phone] Rosemarie Mcdowell RN Unavailable [phone] Ravi Brownlee MD Unavailable [phone] Mitra Kendall HOSE TURNER Unavailable [phone] Reason for Visit * Reason Onset Date Comments Patient Request 12/26/2023 Encounter Details Date Type Department Care Team (Late st Contact Info) Description 12/26/[address] [place] [phone] Kerry Bernal, INOCENCIO Patient Request Social History Tobacco Use Types [...] re latives? 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 Placed sign and date stickers also yellow donis lighted for pt to sign. Copy filed in [employer] file. Pt will greens picker, sign and take to [employer]. SHERWIN Collins * Telephone Encounter - Va Glez MD - 12/27/2023 2:59 PM CDT Parking permit done, please call patient and let him know. Thanks. * Telephone Encounter - Kerry Bernal RN - 12/27/2023 12:[address] Glez Disability parking form started and placed in your basket to complete RN faxed order for portable nebulizer to home medical along with last F visit to [phone] Kerry Bernal Registered Nurse [facility] * Telephone Encounter - Va Glez MD - 12/27/2023 12:00 PM CDT We can fill the form for disability, section: pt cannot walk more than 200 feet, due to knee arthritis. Visit addend . * Telephone Encounter - Kerry Bernal RN - 12/27/2023 11:[address] Newton Yousif parkinedmudn questions - patient can walk up to 200 feet on some days and others he is unableto due to leg pain. Patient does not use a walker or a cane. Portable nebulizer, please addend your last note with instructions that patient should use nebulizer treatments 2/4 times per day to treat asthma symptoms. Once completed route back to RN to fax to Home Medical [phone] Patient has a sore throat - onset yesterday Denies fever, coughing Has not looked into mouth to see if red or any white patches (uses inhalers which can cause thrush) Just doesn't feel well in general RN advised no openings in clinic today, patient requested to be transferred to the scheduling team to see if any openings in any other clinics. Patient is unable to send Evisit as his is not able to get into my chart. [facility] * Telephone Encounter - Kerry Bernal RN - 12/27/2023 9:55 AM CDT Message # 1 left to return call [facility] * Telephone Encounter - Va Glez MD - 12/27/2023 7:24 AM CDT Can he walk more than 200 feet without stopping? Is he using a walker or cane? I signed the nebulizer, I can addend my last note as I just saw him, what shall I say in the note, do you know? * Telephone Encounter - Kerry Bernal RN - 12/26/2023 4:[address] Glez Patient requesting disability parking, he states leg pain makes it hard for him to walk from further parking spots. He does not use a walker/cane or have oxygen. Do you think patient qualifies for disability parking? RN can start form if you feel patient meets qualifications. Requesting order for portable nebulizer machine. Patient has medicare, will likely require F2F visit, he just had a visit with pulmonology. Would you like him to check with pulmonology? Or are you able to addend your last note to order? Thank you [facility] * Telephone Encounter - Kerry Bernal RN - 12/26/2023 3:25 PM CDT Patient left message on RN IVELISSE asking for return call Has a question ... Did not advise what it was relating to Kerry Bernal, Registered Nurse [facility] documented in this encounter Plan of Treatment Upcoming Encounters Date Type Department Care Team (Late st Contact Info) Description 02/01/2024 3:00 PM IT SYSTEMS ANALYST Office Visit [facility] [address] [place] [address] Manuel Ahn, [address] [place] [address] 02/02/2024 1:30 PM IT SYSTEMS ANALYST Therapy Visit [facility] Specialty [place] [address] [facility] [address] [place] [phone] Alicja Roldan, BETY [address] [place] [address] 02/05/2024 8:00 PM IT SYSTEMS ANALYST Therapy Visit [facility] [place] [address] [facility] [address] [place] [phone] 02/13/2024 4:30 PM IT SYSTEMS ANALYST Oncology Visit [facility] [address] [place] [phone] Marian Agustin, NESSA [facility] [address] [facility] [address] [place] [address] 03/01/2024 7:00 AM IT SYSTEMS ANALYST Office Visit [facility] [address] [place] [phone] Estella Hassan, [facility] [address] [place], [place] [address] 03/23/2024 2:00 PM IT SYSTEMS ANALYST Office Visit [facility] [address] [place] [address] [place] [phone] Lizet Mann PA-C 717 [place] [address] 03/29/2024 3:30 PM IT SYSTEMS ANALYST Office Visit [facility] [address] [facility] 200 [place] [address] Hakeem Chacko MBBS [address] [place] [address] 05/03/2024 3:00 PM IT SYSTEMS ANALYST Office Visit [facility] [address] [address] Gaurav Valenzuela, MANAGER SEARCH [address] [address] 05/22/2024 10:30 AM CDT Office Visit [address] [phone] Estella Hassan, [facility] [address] [place] [address] 05/22/2024 11:30 AM CDT Office Visit [address] [phone] [place] [id number] [place] [address] [phone] documented as of this encounter Goals Goal [...] resource strain 100%( 023 10:17 AM CDT) Mitra Borja LSW Note: Updated on 05/25/22 Barriers: Currently not working.Doesn't have insurance Strengths: Getting SSD. Patient expressed understanding of goal: Action steps to achieve this goal: 1. I will apply for unemployment. Decided not to 2. I will explore my options for health insurance by looking in to [employer] and talking with a FRW. Completed 3. I will look for a new job and will access resources that the [employer] offers. . Sarted new job 4. Continue [...] Due or Overdue 20%(01/27/20 24 7:55 AM IT SYSTEMS ANALYST) No Mitra Kendall, SILVER Note: Barriers: Life stressors Strengths: Engaged with [...] as of this encounter Visit Diagnoses Diagnosis Severe persistent asthma, uncomplicated (H)- Primary Unspecified asthma documented in this encounter [...] accurate information and submit it to the [facility]. 3. I will update CCC Team at outreach. HbA1C Not In Goal 04/28/2023 Diabetes Self-Management Edu cation Needed to Optimize Self-Care Behaviors 04/28/2023 Health Maintenance Due or Overdue 12/16/2023 Assessment Noted Time PHQ-9 Depression Total Score: 9 12/23/19 24 12:36 PM CDT documented as of this encounter Care Teams Test Development Engineer Relationship Specialty [place] [address] [place] [address] PCP - General Family Practice 07/11/14 [place] [address] [place] [address] Assigned PCP 12/16/11 Christy Campuzano PA-C [address] [place] [id number] Referring Physician Family Medicine 04/22/20 Hans Cannon MD [address] [place] [address] [id number] Resident Pulmonary Disease 04/22/20 Estella Hassan, [facility] [address] [place], [place] [address] Pharmacist Pharmacist 05/26/20 Elaina Moreno MD [address] [place], [place] 8[address] Cardiovascular & Thoracic Surgery 08/06/20 John Webb MD [address] [place] [address] Cardiovascular Disease 08/25/21 John Webb MD [address] [address] Cardiovascular Disease 08/25/21 [facility] [address] [place] [address] Assigned MTM Pharmacist 12/09/21 Lindsay Carey OD [address] [facility] [place] [address] Ophthalmology 01/29/22 Richard Kam MD [address] [place] [address] Assigned Musculoskeletal Provider 08/14/22 [place] [address] [place], [address] [address] Assigned Neuroscience Provider 01/01/23 Rosemarie Mcdowell, INOCENCIO Dry Mixer Diabetes Education 03/17/23 Ravi Brownlee MD [address] [facility] [address] [place], [place] [address] Assigned Heart and Vascular Provider 09/04/23 01/03/24 Mitra Kendall, HOSE TURNER Lead Back Shoe Cutter Primary Care - CC 12/12/23 documented as of this encounter
--- OUTSIDE RECORDS SUMMARY | 2024-01-31 20:04 | XMS_ITS | Encounter Summary ---
Author Organization [facility] Address [address] [place] [address] Care Team Providers Care Line Maintenance Name Role Phone Va Glez MD Primary Care Provider Va Glez MD Unavailable Christy Campuzano PA-C Unavailable [phone] Hans Cannon MD Unavailable Estella Hassan [facility] Unavailable Josh Cordero MD, Elaina Unavailable [phone] John Webb MD Unavailable [phone] John Webb MD Unavailable Estella Hassan [facility] Unavailable Lindsay Carey OD Unavailable Richard Kam MD Unavailable Gaby Vila DO Unavailable [phone] Rosemarie Mcdowell RN Unavailable [phone] Ravi Brownlee MD Unavailable Mitra Kendall STOCK OR DELIVERY CLERK Unavailable [phone] Reason for Referral * Consultation (Routine) - Pending Review Specialty Diagnoses / Procedures Referred By Contandrew t Referred To Contact Urology Diagnoses Elevated prostate specific antigen ([place]) [place] [address] [place] [address] Phone: tel: fax: Referral ID Status Reason Start Date Expiration Date V isits Requested Visits Authorized [id number] Pending Review 12/24/2023 12/23/2024 1 1 Question Answer Referral Type: Urology Reason for Referral: Elevated PSA Patient Scheduling Instructions: [employer] will call you to coordinate care as prescribed your provider. If you don t hear from a risk control field representative within 2 business days, please call . Comments Please be aware that coverage of these services is subject to the terms and limitations of your health insurance plan. Call member services at your health plan with any benefit or coverage questions. [employer] will call you to coordinate care as prescribed your provider. If you don t hear from a risk control field representative within 2 business days, please call . Reason for Visit * Reason Onset Date Comments Results 12/24/2023 Encounter Details Date Type Department Care Team (Late st Contact Info) Description 12/24/2023 Telephone [facility] [address] [place] [phone] [place] [address] [place] [address] Results Social History Tobacco Use Types Packs/Day Years [...] re latives? 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 Gender Identity Not on file Sexual Orientation Not on file Occupation Industry Job Start Date Job End Date Not on file Not on file Not on file Not on file documented as of this encounter Miscellaneous Notes * Telephone Encounter - Kerry Bernal RN - 12/26/2023 11:04 AM CDT Estella SORIANO FYI - scheduled with you 01/05/2024 (RN did not cancel previously scheduled visit in case needed for follow up) Lab Results Component Value Date A1C 9.1 12/23/2023 A1C 8.4 09/13/2023 A1C 9.0 06/13/2023 RN spoke to patient Reviewed results note below - no questions at this time Advised that urology referral was placed, if does not hear from the scheduling team within 2 business days to return call to RN for the number Scheduled sooner appt with MTM per request of Dr. Glez Appointments in Next Year Jan 05, 2024 7:30 AM Pharmacist Visit with Estella Hassan RPH [facility] ([facility] ) [phone] Kerry Bernal Registered Nurse [facility] * Telephone Encounter - Va Glez MD - 12/24/2023 8:38 PM CDT 2 things: Blood sugar is very high, so I recommend that he closely follow up with MTM (can he have a sooner upcoming appointment? And can we please send this message to Estella with the A1c results. Two : PSA is high, I recommend Urology appointment (sent) Va Glez MD [facility]. [phone] documented in this encounter Plan of Treatment Upcoming Encounters Date Type Department Care Team (Late st Contact Info) Description 02/01/2024 3:00 PM MARINE PHOTOGRAPHER Office Visit [facility] [address] [place] [phone] Manuel Ahn, [address] [place] [address] 02/02/2024 1:30 PM MARINE PHOTOGRAPHER Therapy Visit [facility] Specialty [place] [address] [facility] [address] [place] [phone] Alicja Roldan, OT 909 [place] [address] 02/05/2024 8:00 PM MARINE PHOTOGRAPHER Therapy Visit [facility] [place] [address] [facility] [address] [place] [phone] 02/13/2024 4:30 PM MARINE PHOTOGRAPHER Oncology Visit [facility] 9[address] [place] [phone] Marian Agustin, NESSA [facility] [address] [facility] [address] [place] [address] 03/01/2024 7:00 AM MARINE PHOTOGRAPHER Office Visit [facility] [address] [place] [phone] Estella Hassan, [facility] 30[address] [place] [address] 03/23/2024 2:00 PM MARINE PHOTOGRAPHER Office Visit [facility] [address] [place] [address] [place] [phone] Lizet Mann PA-C 7[address] [place] [address] 03/29/2024 3:30 PM MARINE PHOTOGRAPHER Office Visit [facility] [address] [facility] 200 [place] [address] Hakeem Chacko MBBS [address] [place] [address] 05/03/2024 3:00 PM MARINE PHOTOGRAPHER Office Visit [facility] Sleep [address] [phone] Gaurav Valenzuela, ADDRESSOGRAPH OPERATOR [address] [address] 05/22/2024 10:30 AM CDT Office Visit [address] [phone] [facility] 30[address] [place] [address] 05/22/2024 11:30 AM CDT Office Visit [address] [address] Va Glez MD [address] [place] [address] [phone] Scheduled Referrals Name Type Priority Associated Diagnoses Orde r Schedule Adult Urology Sandstone Inspector Repairer Referral Referral Routine Elevated prostate specific antigen (PSA) Expected: 12/24/2023 (Approximate), Expires: 12/23/2024 documented as of this encounter Goals Goal Patient Goal Type Associated Problems Recent Progress Patient-Stated? Author Health Maintenance Care Plan HP GENERAL PROBLEM 100%( 023 10:17 AM CDT) No Mitra Kendall, STOCK OR DELIVERY CLERK Note: Update on 05/25/22 Barriers: Currently without [...] for health insurance by looking in to [employer] and talking with a FRW. Completed 3. I will look for a new job and will access resources that the [employer] offers. . Sarted new job 4. Continue [...] Due or Overdue 20%(01/27/20 24 7:55 AM MARINE PHOTOGRAPHER) No Mitra Kendall LSW Note: Barriers: Life [...] as of this encounter Visit Diagnoses Diagnosis Elevated prostate specific antigen (PSA)- Primary documented in this encounter Additional Health Concerns [...] documented as of this encounter Care Teams Line Maintenance Relationship Specialty [place] [address] [place] [address] PCP - General Family Practice 07/11/14 [place] [address] [place] [address] Assigned PCP 12/16/11 Christy Campuzano PA-C [address] [place] [address]96102 Referring Physician Family Medicine 04/22/20 Hans Cannon MD [address] [place] [address] 588772 Resident Pulmonary Disease 04/22/20 Estella Hassan, [facility] [address] [place], [place] [address] Pharmacist Pharmacist 05/26/20 Elaina Moreno MD [address] [place], [place] [address] Cardiovascular & Thoracic Surgery 08/06/20 John Webb MD [address] [place] [address] Cardiovascular Disease 08/25/21 John Webb MD [address] [place] [address] Cardiovascular Disease 08/25/21 Estella Hassan, [facility] [address] [place] [address] Assigned MTM Pharmacist 12/09/21 Lindsay Carey OD [address] [facility] [place] [address] Ophthalmology 01/29/22 Richard Kam MD [address] [place] [address] Assigned Musculoskeletal Provider 08/14/22 [place] [address] [place] , [address] [address] Assigned Neuroscience Provider 01/01/23 Rosemarie Mcdowell, RN New Business Clerk Diabetes Education 03/17/23 Ravi Brownlee MD [address] [facility] [address] [place], [place] [address] Assigned Heart and Vascular Provider 09/04/23 01/03/24 Mitra Kendall, STOCK OR DELIVERY CLERK Lead Ink Grinder Primary Care - CC 12/12/23 documented as of this encounter
--- OUTSIDE RECORDS SUMMARY | 2024-01-31 20:04 | XMS_ITS | Encounter Summary ---
Author Organization [facility] Address [address] [place] [address] Care Team Providers Care Landfill Gas Collection Operator Name Role Phone Va Glez MD Primary Care Provider Va Glez MD Unavailable Christy Campuzano PA-C Unavailable [phone] Hans Cannon MD Unavailable Estella Hassan [facility] Unavailable Josh Cordero MD, Madhuri Unavailable [phone] John Webb MD Unavailable John Webb MD Unavailable Estella Hassan [facility] Unavailable [phone] Lindsay Carey OD Unavailable Richard Kam MD Unavailable Gaby Vila DO Unavailable [phone] Rosemarie Mcdowell RN Unavailable Ravi Brownlee MD Unavailable Mitra Kendall CENTRAL SUPPLY TECHNICIAN Unavailable [phone] Reason for Visit * Reason Comments Pharyngitis Encounter Details Date Type Department Care Team (Late st Contact Info) Description 12/27/2023 5:30 PM CDT Office Visit [facility] [address] [place] [phone] Debbie Palacios PA-C [address] [place] [address] Pharyngitis, unspecified etiology (Primary Dx) Social History Tobacco Use Types Packs/Day Years [...] re latives? 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 Gender Identity Not on file Sexual Orientation Not on file Occupation Industry Job Start Date Job End Date Not on file Not on file Not on file Not on file documented as of this encounter Last Filed Vital Signs Vital Sign Reading Time Taken Comments Blood Pressure 130/78 12/27/2023 5:21 PM CDT Pulse 98 12/27/2023 5:21 PM CDT Temperature 37 C (98.6 F) 12/27/2023 5:21 PM CDT Respiratory Rate 12 12/27/2023 5:21 PM CDT Oxygen Saturation 96% 12/27/2023 5:21 PM CDT Inhaled Oxygen Concentration - - Weight 132.9 kg (293 lb) 12/27/2023 5:21 PM CDT Height 175.3 cm (5' 9) 12/27/2023 5:21 PM CDT Body Mass Index 43.27 12/27/2023 5:21 PM CDT documented in this encounter Progress Notes * Debbie Palacios PA-C - 12/27/2023 5:30 PM CDT Assessment & Plan Pharyngitis, unspecified etiology Suspect GERD, but will test for CoVID and Strep as well. If both negative, will enc pt to take omeprazole as his pcp prescribed. Consider sleep study. - Streptococcus A Rapid Screen w/Reflex to PCR - Clinic Collect - Symptomatic COVID-19 Virus (Coronavirus) by PCR Nose - Group A Streptococcus PCR Throat Swab See results documentation for follow up of this visit. Subjective Peter is a 63 year old, presenting for the following health issues: Pharyngitis Ravi is a 63 year old male who usually sees his PCP in the [place] area because he lives [facility] [place], but he works in [place] and this was the only appointment he could get today. He would like his sore throat evaluated. It has been a couple days. Has a little nasal congestion (with knownallergies, taking Flonase for that). Has asthma, no worsening of symptoms. No fevers. Does not hurtto swallow. States he is really not exposed to many people. Had COVID in the past but never felt awful when he did. No other symptoms to report. History of Present Illness Reason for visit: Right ear pressure He is taking medications regularly. Review of Systems Constitutional, HEENT, cardiovascular, pulmonary, gi and gu systems are negative, except as otherwise noted. Objective BP 130/78 Pulse 98 Temp 98.6 ??F (37 ??C) (Tympanic) Resp 12 Ht 1.753 m (5' 9) Wt 132.9 kg (293 lb) SpO2 96% BMI 43.27 kg/m?? Body mass index is 43.27 kg/m??. Physical Exam Vitals reviewed. Constitutional: Appearance: Normal appearance. He is obese. He is not ill-appearing or toxic-appearing. HENT: Right Ear: Tympanic membrane and ear canal normal. Left Ear: Tympanic membrane and ear canal normal. Nose: Nose normal. Right Turbinates: Not enlarged or swollen. Left Turbinates: Not enlarged or swollen. Right Sinus: No maxillary sinus tenderness or frontal sinus tenderness. Left Sinus: No maxillary sinus tenderness or frontal sinus tenderness. Mouth/Throat: Mouth: Mucous membranes are moist. Dentition: Abnormal dentition. Dental caries present. Palate: No mass and lesions. Pharynx: Oropharynx is clear. Uvula midline. No oropharyngeal exudate or posterior oropharyngeal erythema. Comments: Mallampati III Cardiovascular: Rate and Rhythm: Normal rate and regular rhythm. Heart sounds: Normal heart sounds. No murmur heard. Pulmonary: Effort: Pulmonary effort is normal. Breath sounds: Normal breath sounds. No wheezing, rhonchi or rales. Skin: General: Skin is warm and dry. Neurological: Mental Status: He is alert and oriented to person, place, and time. Psychiatric: Mood and Affect: Mood normal. Results for orders placed or performed in visit on 12/27/23 Streptococcus A Rapid Screen w/Reflex to PCR - Clinic Collect Status: Normal Specimen: Throat; Swab Result Value Ref Range Group A Strep antigen Negative Negative Group A Streptococcus PCR Throat Swab Status: Normal Specimen: Throat; Swab Result Value Ref Range Group A strep by PCR Not Detected Not Detected Narrative The Xpert Xpress Strep A test, performed on the iClinical?? Instrument Systems, is a rapid, qualitative in vitro diagnostic test for the detection of Streptococcus pyogenes (Group A ??-hemolytic Streptococcus, Strep A) in throat swab specimens from patients with signs and symptoms of pharyngitis. The Xpert Xpress Strep A test can be used as an aid in the diagnosis of Group A Streptococcal pharyngitis. The assay is not intended to monitor treatment for Group A Streptococcus infections. The XpertXpress Strep A test utilizes an automated real-time polymerase chain reaction (PCR) to detect Streptococcus pyogenes DNA. Signed Electronically by: DEBBIE PALACIOS PA-C documented in this encounter Plan of Treatment Upcoming Encounters Date Type Department Care Team (Late st Contact Info) Description 02/01/2024 3:00 PM CERTIFIED ORTHOTIST PRACTICE MANAGER Office Visit [address] [address] Manuel Ahn, OD [address] [facility] [place] [address] 02/02/2024 1:30 PM CERTIFIED ORTHOTIST PRACTICE MANAGER Therapy Visit [facility] [address] [facility] [address] [place] [phone] Alicja Roldan, OT [address]09 [place] [address] 02/05/2024 8:00 PM CERTIFIED ORTHOTIST PRACTICE MANAGER Therapy Visit [facility] [place] [address] [facility] [address] [place] [phone] 02/13/2024 4:30 PM CERTIFIED ORTHOTIST PRACTICE MANAGER Oncology Visit [facility] 909 [place] [phone] Marian Agustin, HOME RESTORATION SERVICE CLEANER [facility] [address] [facility] [address] [place] [address] 03/01/2024 7:00 AM CERTIFIED ORTHOTIST PRACTICE MANAGER Office Visit [facility] [address] [place] [phone] Estella Hassan, [facility] [address] [place] [address] 03/23/2024 2:00 PM CERTIFIED ORTHOTIST PRACTICE MANAGER Office Visit [facility] [address] [place] [address] [place] [phone] Lizet Mann PA-C 717 [place], [place] [address] 03/29/2024 3:30 PM CERTIFIED ORTHOTIST PRACTICE MANAGER Office Visit [facility] [address] [facility] [address] [place] [phone] Hakeem Chacko MBBS 2945 [place] [address] 05/03/2024 3:00 PM CERTIFIED ORTHOTIST PRACTICE MANAGER Office Visit [address] [phone] Gaurav Valenzuela APRN [facility] [address] [place] [address] 106 [place] [address] 05/22/2024 10:30 AM CDT Office Visit [facility] [address] [place] [phone] Estella Hassan, [facility] [address] [place] [address] 05/22/2024 11:30 AM CDT Office Visit [address] [phone] [place] [address] [place], [place] [phone] documented as of this encounter Goals Goal [...] job and will access resources that the [employer] offers. . Sarted new job 4. [...] Due or Overdue 20%(01/27/20 24 7:55 AM CERTIFIED ORTHOTIST PRACTICE MANAGER) No Mitra Kendall, [place] Note: Barriers: Life [...] Procedure Name Priority Date/Time Associated Diagnosis Comments COVID-19 VIRUS (CORONAVIRUS) BY PCR Routine 12/27/2023 5:55 PM CDT Pharyngitis, unspecified etiology STREPTOCOCCUS A RAPID SCREEN W REFELX TO PCR Routine 12/27/2023 5:55 PM CDT Pharyngitis, unspecified etiology GROUP A STREPTOCOCCUS PCR THROAT SWAB Routine 12/27/2023 5:55 PM CDT Pharyngitis, unspecified etiology documented in this encounter Results * Group A Streptococcus PCR Throat Swab [...] Xpress Strep A test, performed on the iClinical Instrument Systems, is a rapid, qualitative in [...] - MICRO GENERAL HAYDEN VÁZQUEZ Final Result [facility] Inf. Diseases Diag. Lab [address] [facility], [address] [place] [address], [facility] * Symptomatic COVID-19 Virus (Coronavirus) by PCR Nose (12/27/2023 5:55 PM CDT) [facility] SARS CoV2 PCR Negative Negative 12/29/2023 1:37 [...] COVID-19. This test was validated by the [facility]. This laboratory is certified under the Clinical Laboratory Improvement Amendments of 1988 (CLIA-88) as qualified to perform high and/or moderate complexity laboratory testing. us Debbie Palacios PA-C LAB - MICRO GENERAL ORDE RABVantageous Final Result [facility] Inf. Diseases Diag. Lab [address] [facility], [address] [place] [address], [place] * Streptococcus A Rapid Screen w/Reflex to PCR - Clinic Collect (12/27/2023 5:55 PM CDT) Pathologist [facility] Group A Strep antigen Negative Negative 12/27/2023 6:25 PM CDT [facility] Swab STRUCTURE OF ANTERIOR PORTION OF NECK / Unknown Non-blood Collection / Unknown 12/27/2023 5:55 PM CDT 12/27/2023 6:17 PM CDT Debbie Palacios PA-C LAB - MICRO GENERAL ORDE RABVantageous Final Result [facility] Lab [address] [facility] Lab (no room number, 1st floor of clinic) [place] [address], [facility] documented in this encounter Visit Diagnoses Diagnosis Pharyngitis, unspecified etiology- Primary documented in this encounter Additional Health [...] accurate information and submit it to the [facility]. 3. I will update CCC [...] documented as of this encounter Care Teams Landfill Gas Collection Operator Relationship Specialty [place] [address] [place] [address] PCP - General Family Practice 07/11/14 [place] [address] [place] [address] Assigned PCP 12/16/11 Christy Campuzano PA-C [address] [place] [address] Referring Physician Family Medicine 04/22/20 Hans Cannon MD [address] [place] [address] Resident Pulmonary Disease 04/22/20 Estella Hassan, [facility] [place], [place] 158416 Pharmacist Pharmacist 05/26/20 Elaina Moreno MD 9 [place] [address] Cardiovascular & Thoracic Surgery 08/06/20 John Webb MD [address] 152215 Cardiovascular Disease 08/25/21 John Webb MD [address] 767288 Cardiovascular Disease 08/25/21 Estella Hassan, [facility] [address] [place] [address] Assigned MTM Pharmacist 12/09/21 Lindsay Carey OD [address] [facility] [place] [address] Ophthalmology 01/29/22 Richard Kam MD 500 [place], [place] 578[address] Assigned Musculoskeletal Provider 08/14/22 [place] [address] [place], [address] [id number] Assigned Neuroscience Provider 01/01/23 Rosemarie Mcdowell, RN Signs And Displays Sales Representative Diabetes Education 03/17/23 Ravi Brownlee MD [address] [place] [address] 276 [place], [place] [address]1995 Assigned Heart and Vascular Provider 09/04/23 01/03/24 Mitra Kendall, CENTRAL SUPPLY TECHNICIAN Lead Treasury Consultant Primary Care - CC 12/12/23 documented as of this encounter
--- OUTSIDE RECORDS SUMMARY | 2024-01-31 20:04 | XMS_ITS | Encounter Summary ---
Author Organization [place] Address [address] [place] [address] Care Team Providers Care Knife Setter Assembler Name Role Phone Va Glez MD Primary Care Provider Va Glez MD Unavailable Christy CampuzanoC Unavailable Hans Cannon MD Unavailable Estella Hassan [facility] Unavailable [phone] Josh Cordero MD, Madhuri Unavailable [phone] John Webb MD Unavailable John Webb MD Unavailable Estella Hassan [facility] Unavailable Lindsay Carey OD Unavailable [phone] Richard Kam MD Unavailable Gaby Vila DO Unavailable Rosemarie Mcdowell RN Unavailable Ravi Brownlee MD Unavailable Mitra Kendall COMMUNITY HEALTH COORDINATOR Unavailable Lizet MannC Unavailable [phone] Ravi Brownlee MD Unavailable [phone] Nav Hughes MD Unavailable [phone] Manuel Ahn OD Unavailable [phone] Arabella Fishman MA Unavailable [phone] Thalia Charles [facility] Unavailable Unavailable Encounter Details Date Type Department Care Team (Late st Contact Info) Description 12/29/2023 MyC Medical Advice [facility] [address] [facility] [address] [place] [address] Alicja Roldan OT [address] [place] [address] Social History Tobacco Use Types Packs/Day Years [...] re latives? 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 Gender Identity Not on file Sexual Orientation Not on file Occupation Industry Job Start Date Job End Date Not on file Not on file Not on file Not on file documented as of this encounter Plan of Treatment Upcoming Encounters Date Type Department Care Team (Late st Contact Info) Description 02/01/2024 3:00 PM SUPERVISOR SPECIALTY PLANT Office Visit [facility] [address] [facility] [place] [address] Manuel Ahn, [address] [facility] [address] 02/02/2024 1:30 PM SUPERVISOR SPECIALTY PLANT Therapy Visit [facility] [place] [address] [facility] [address] [place] [phone] Alicja Roldan, OT [address] [place] [address] 02/05/2024 8:00 PM SUPERVISOR SPECIALTY PLANT Therapy Visit [facility] [place] [address] [facility] [address] [place] [phone] 02/13/2024 4:30 PM SUPERVISOR SPECIALTY PLANT Oncology Visit [facility] 909 [place] [phone] Marian Agustin, [facility] [address] [facility] 207 [place] [address] 03/01/2024 7:00 AM SUPERVISOR SPECIALTY PLANT Office Visit [facility] [address] [place] [phone] Estella Hassan, [facility] [address] [place] [address] 03/23/2024 2:00 PM SUPERVISOR SPECIALTY PLANT Office Visit [facility] [address] [place] [address] [place] [phone] Lizet Mann PA-C [address] [facility] [place] [address] 03/29/2024 3:30 PM SUPERVISOR SPECIALTY PLANT Office Visit [facility] [address] [facility] [address] [place] [address] Hakeem Chacko MBBS 2945 [place] [address] 05/03/2024 3:00 PM SUPERVISOR SPECIALTY PLANT Office Visit [address] [place] [phone] Gaurav Valenzuela, [facility] [address] [address] 05/22/2024 10:30 AM CDT Office Visit [facility] [address] [place] [phone] Estella Hassan, [facility] [address] [place] [address] 05/22/2024 11:30 AM CDT Office Visit [facility] [address] [place] [phone] [place] [address] [place] [address] [phone] documented as of this encounter Goals Goal [...] Care Plan Patient expresses financial resource strain 100%(08/17/2 023 10:17 AM CDT) No Mitra Kendall, COMMUNITY HEALTH COORDINATOR Note: Updated on 05/25/22 Barriers: Currently not working.Doesn't have insurance Strengths: Getting SSD. Patient expressed understanding of goal: Action steps to achieve this goal: 1. I will apply for unemployment. Decided not to 2. I will explore my options for health insurance by [facility] and talking with a FRW. Completed 3. I will look for a new job and will access resources that the [email or web address] offers. . Sarted new job 4. Continue [...] Due or Overdue 20%(01/27/20 24 7:55 AM SUPERVISOR SPECIALTY PLANT) No Mitra Kendall LSW Note: Barriers: Life [...] accurate information and submit it to the [facility]. 3. I will update CCC [...] documented as of this encounter Care Teams Knife Setter Assembler Relationship Specialty [place] [address] [place] [address] PCP - General Family Practice 07/11/14 [place] [address] [place] [address] Assigned PCP 12/16/11 Christy Campuzano PA-C [address] [place] [address] 899252 Referring Physician Family Medicine 04/22/20 Hans Cannon MD [address] [place] [address] Resident Pulmonary Disease 04/22/20 Estella Hassan, [facility] [place] 239746 Pharmacist Pharmacist 05/26/20 Elaina Moreno MD [address] [place] [address] Cardiovascular & Thoracic Surgery 08/06/20 John Webb MD [address] [address] Cardiovascular Disease 08/25/21 John Webb MD [address] [id number] Cardiovascular Disease 08/25/21 Estella Hassan, [facility] [place], [place] 492516 Assigned MTM Pharmacist 12/09/21 Lindsay Carey OD [address] [facility] [place] [address] Ophthalmology 01/29/22 Richard Kam MD [address] [place] [address] 457865 Assigned Musculoskeletal Provider 08/14/22 [place] [address] [place] , [address] [id number] Assigned Neuroscience Provider 01/01/23 Rosemarie Mcdowell RN Systems Lead Diabetes Education 03/17/23 Ravi Brownlee MD [address] [place] [address] Assigned Heart and Vascular Provider 09/04/23 01/03/24 Mitra Kendall, [facility] Lead Press Operator Primary Care - CC 12/12/23 Lizet Mann PA-C [address] [place] [address] [phone] Assigned Cancer Care Provider 01/04/24 Ravi Brownlee MD [address] [place] [address] Assigned Pulmonology Provider 01/04/24 Nav Hughes MD [address] [address] Assigned Heart and Vascular Provider 01/04/24 Manuel Ahn OD [address]341 [place] [address] Chief Dog License Inspector 01/05/24 Arabella [place] MA Financial Resource Worker 01/06/24 Thalia Charles [facility] Pharmacist Pharmacy 01/26/24 documented as of this encounter
--- OUTSIDE RECORDS SUMMARY | 2024-01-31 20:04 | XMS_ITS | Encounter Summary ---
Author Organization [facility] Address [address] [place] [address] Care Team Providers Care Business Development Specialist Name Role Phone Va Glez MD Primary Care Provider [phone] Va Glez MD Unavailable Christy Campuzano PA-C Unavailable [phone] Hans Cannon MD Unavailable [phone] Estella Hassan [facility] Unavailable Josh Cordero MD, Madhuri Unavailable [phone] John Webb MD Unavailable [phone] John Webb MD Unavailable [phone] Estella Hassan [facility] Unavailable [phone] Lindsay Carey OD Unavailable Richard Kam MD Unavailable Gaby Vila DO Unavailable [phone] Rosemarie Mcdowell RN Unavailable [phone] Ravi Brownlee MD Unavailable [phone] Mitra Kendall [employer] Unavailable [phone] Reason for Referral * Medication Prior Authorization - Closed Specialty Diagnoses / Procedures Referred By Contandrew t Referred To Contact Diagnoses Moderate persistent asthma without complication Lizet Mann PA-C [address] [place] [address] Phone: tel: fax: Referral ID Status Reason Start Date Expiration Date Visits Re quested Visits Authorized [id number] Closed 1 1 * Medication Prior Authorization - Closed Specialty Diagnoses / Procedures Referred By Mireille t Referred To Contact Diagnoses Moderate persistent asthma without complication Lizet Mann PA-C [address] [place] [address] Phone: tel: fax: Referral ID Status Reason Start Date Expiration Date Visits Re quested Visits Authorized [id number] Closed 1 1 Reason for Visit * Reason Comments RECHECK Asthma Encounter Details Date Type Department Care Team (Late st Contact Info) Description 12/21/2023 2:00 PM CDT Office Visit [facility] [address] [address] Lizet Mann PA-C [address] [place] [phone] Moderate persistent asthma without complication (Primary Dx) Social History Tobacco Use Types [...] on file Legal 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 Gender Identity Not on file Sexual Orientation Not on file Occupation Industry Job Start Date Job End Date Not on file Not on file Not on file Not on file documented as of this encounter Last Filed Vital Signs Vital Sign Reading Time Taken Comments Blood Pressure 122/76 12/21/2023 1:53 PM CDT Pulse 89 12/21/2023 1:53 PM CDT Temperature - - Respiratory Rate 22 12/21/2023 1:53 PM CDT Oxygen Saturation 95% 12/21/2023 1:53 PM CDT Inhaled Oxygen Concentration - - Weight 134.7 kg (297 lb) 12/21/2023 1:53 PM CDT Height - - Body Mass Index 43.86 12/18/2023 7:40 AM CDT documented in this encounter Patient Instructions * Patient Instructions* Lizet Mann PA-C - 12/21/2023 2:00 PM CDT Call to schedule your overnight oximetry at [facility]; . Will call with results Budesonide neb twice daily, perforomist neb twice daily, duoneb/albuterol neb as needed (try to limit use of this). This would replace your Wixela but we can go back to Wixela if you prefer Six minute walk test Flonase daily Follow up with me in 3 months Joann Underwood; [address], [place] [address] documented in this encounter Progress Notes * Lizet Mann PA-C - 12/21/2023 2:00 PM CDT Images from the original note were not included. 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 Symptoms seem progressively worse over the past several months, over-using duoneb and forgetting hishigh dose Wixela. LAMA inhalers were too expensive. Tried singulair in the past which caused anxiety. Echo 09/2021 with EF 60-65%. BNP 11/08/2023 <36. CO2 on BMP is normal. IgE 01/2022 129. Eosinophils 100 10/2023. Since he reports better symptom control with nebulizers, will switch him from [place] Budesonide neb + LABA neb. He can continue to use duoneb PRN. Also recommend 6 minute walk, overnight oximetry on RA, and flonase daily for nasal congestion. At his follow up we will discuss pulmonary rehab, ran out of time to discuss today. Could also consider repeat Echo. 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 Last seen with Dr. Brownlee 05/2023. Since last clinic visit he went to the ED 12/18/2023 with shortness of breath, ran out of duoneb, improved with duoneb in the ED. His asthma seems poorly controlled since September. He checks his oxygen at home and it is typically 92-96%, one time did go down to 89%, this was all at rest. Endorses occasional wheeze, nasal congestion, shortness of breath when it's hot/humid or if around smoke. Has random episodes of dyspnea leadingto anxiety. Usually doesn't feel short of breath with walking. 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 Very little cough. Sometimes more short of breath laying flat. Snores, sometimes wakes up tired but admits to staying up too late, rarely wakes up gasping for air. Does have LE edema, attributes this to having knee surgery. Denies GERD but has omeprazole if needed. Is alternating between DuoNeb and Albuterol neb 4-5x per day. Unable to afford incruse or Spiriva. Wixela is affordable but admits to only using it once daily sometimes. Prefers HFA over dry powder inhalers. He feels nebulizers are more effective than inhalers. He hasn't gotten prednisone for his breathing in a long time. Quit smoking 1982, smoked for ~5 years, minimal cigs per day. 10 point review of systems negative, aside from that mentioned in HPI. BP 122/76 (BP Location: Left arm, Patient Position: Sitting, Cuff Size: Adult Large) Pulse 89 Resp 22 Wt 134.7 kg (297 lb) SpO2 95% BMI 43.86 kg/m?? Gen: well-appearing HEENT: Large neck circumference. No obvious masses Card: RRR Pulm: clear bilaterally MSK: 2+ BLE edema Skin: no obvious rash Psych: normal affect Neuro: alert and oriented Labs: Personally reviewed Abs eos (01/2022) - 100 IgE (01/2022) - 129 Imaging/Studies: Personally reviewed PFTs (04/2020) - moderately severe obstruction w/ significant BD response, e/o air-trapping, elevated DLCO Past Medical History: Diagnosis Date Arthritis of [...] Location: [facility] OR TOE SURGERY age 16 Family History Problem Relation Age of Onset No Known Problems Mother Hypertension Maternal Grandmother Social History Socioeconomic History Marital status: Spouse name: Not on file Number of children: Not on file Years of education: Not on file Highest education level: Not on file Occupational History Employer: [employer] Comment: financial strain, pt is trying to retire Tobacco Use Smoking status: Former Current packs/day: 0.00 Types: Cigarettes Quit date: 12/03/1983 Years since quittin.0 Passive exposure: Past Smokeless tobacco: Never Vaping Use Vaping status: Never Used Substance and Sexual Activity Alcohol use: Not Currently Comment: occ Drug use: No Sexual activity: Not Currently Other Topics Concern Parent/sibling w/ CABG, MD or angioplasty before 65F 55M? Not Asked Social History Narrative Not on file Social Determinants of Health Financial Resource Strain: Low Risk (03/18/2023) Financial Resource Strain Within the past 12 months, have you or your family members you live with been unable to get utilities (heat, electricity) when it was really needed?: No Food Insecurity: Low Risk (03/18/2023) Food Insecurity Within the past 12 months, did you worry that your food would run out before you got money to buy more?: No Within the past 12 months, did the food you bought just not last and you didn???t have money to getmore?: Patient declined Transportation Needs: Low Risk (03/18/2023) Transportation Needs Within the past 12 months, has lack of transportation kept you from medical appointments, getting your medicines, non-medical meetings or appointments, work, or from getting things that you need?: No Physical Activity: Insufficiently Active (10/20/2022) Exercise Vital Sign Days of Exercise per Week: 2 days Minutes of Exercise per Session: 10 min Stress: Stress Concern Present (10/20/2022) [employer] [place] [employer] - Occupational Stress Questionnaire Feeling of Stress : To some extent Social Connections: Unknown (10/20/2022) Social Connection and Isolation Panel [NHANES] Frequency of Communication with Friends and Family: Three times a week Frequency of Social Gatherings with Friends and Family: Twice a week Attends Baptism Services: More than 4 times per year Active Member of Clubs or Organizations: Patient declined Attends Club or Organization Meetings: Not on file Marital Status: Interpersonal Safety: Low Risk (10/13/2023) Interpersonal Safety Do you feel physically and emotionally safe where you currently live?: Yes Within the past 12 months, have you been hit, slapped, kicked or otherwise physically hurt by someone?: No Within the past 12 months, have you been humiliated or emotionally abused in other ways by your partner or ex-partner?: No Housing Stability: Low Risk (03/18/2023) Housing Stability Do you have housing? : Yes Are you worried about losing your housing?: No 35 minutes spent reviewing chart, reviewing test results, talking with and examining patient, formulating plan, and documentation on the day of the encounter. Lizet Mann PA-C Pulmonary and Critical Care Medicine [facility] documented in this encounter Nursing Notes * Erin Malik MA - 12/21/2023 2:00 PM CDT Chief Complaint Patient presents with RECHECK Asthma Vitals: 12/21/23 1353 BP: 122/76 BP Location: Left arm Patient Position: Sitting Cuff Size: Adult Large Pulse: 89 Resp: 22 SpO2: 95% Weight: 134.7 kg (297 lb) Body mass index is 43.86 kg/m??. documented in this encounter Plan of Treatment Upcoming Encounters Date Type Department Care Team (Late st Contact Info) Description 02/01/2024 3:00 PM WRAPPER LAYER Office Visit [address] [place] [address] Manuel Ahn, [address] [place] [address] 02/02/2024 1:30 PM WRAPPER LAYER Therapy Visit [facility] [place] [address] [facility] [address] [place] [phone] Alicja Roldan, OT [address] [place] [address] 02/05/2024 8:00 PM WRAPPER LAYER Therapy Visit [facility] [place] [address] [facility] [address] [place] [phone] 02/13/2024 4:30 PM WRAPPER LAYER Oncology Visit [facility] [address] [place] [phone] Marian Agustin, BOBBIN WINDER TENDER [facility] [address] [facility] [address] [place] [address] 03/01/2024 7:00 AM WRAPPER LAYER Office Visit [facility] [address] [place] [phone] Estella Hassan, [facility] [address] [place] [address] 03/23/2024 2:00 PM WRAPPER LAYER Office Visit [facility] [address] [place] [address] [place] [phone] Lizet Mann PA-C [address] [place] [address] 03/29/2024 3:30 PM WRAPPER LAYER Office Visit [facility] [address] [facility] [address] [place] [phone] Hakeem Chacko MBBS [address] [place] [address] 05/03/2024 3:00 PM WRAPPER LAYER Office Visit [facility] [address] [place] [phone] Gaurav Valenzuela, N[facility] [address] [phone] 05/22/2024 10:30 AM CDT Office Visit [facility] [address] [place] [phone] Estella Hassan, [facility] [address] [place] [address] 05/22/2024 11:30 AM CDT Office Visit [facility] [address] [place] [phone] [place] [address] [place] [address] documented as of this encounter [...] 10:17 AM CDT) No Enoch, Mitra K, [employer] Note: Updated on 05/25/22 Barriers: Currently not working.Doesn't have insurance Strengths: Getting SSD. Patient expressed understanding of goal: Action steps to achieve this goal: 1. I will apply for unemployment. Decided not to 2. I will explore my options for health insurance by looking in to [employer] and talking with a FRW. Completed 3. I will look for a new job and will access resources that the [employer] offers. . Sarted new job 4. Continue [...] Due or Overdue 20%(01/27/20 24 7:55 AM WRAPPER LAYER) No Mitra Kendall LSW Note: Barriers: Life [...] or supports. documented as of this encounter Results * 6 minute walk test (01/13/2024 2:31 PM CDT) [facility] Signature 6 min walk (FT) 800 1,202 ft 6 Min Walk (M) 244 366 m Lizet Mann PA-C PFT ORDERABLES Final Result documented in this encounter Visit [...] Assessment Noted Time PHQ-9 Depression Total Score: 4 10/13/19 24 3:39 PM CDT documented as of this encounter Care Teams Business Development Specialist Relationship Specialty [place] [address] [place] [address] PCP - General Family Practice 07/11/14 [place] [address] [place] [address] Assigned PCP 12/16/11 Christy Campuzano PA-C [address] [place] [phone] Referring Physician Family Medicine 04/22/20 Hans Cannon MD [address] [place] [address] Resident Pulmonary Disease 04/22/20 Estella Hassan, [facility] [address] [place], [place] [phone] Pharmacist Pharmacist 05/26/20 Elaina Moreno MD [address] [place], [place] [address] Cardiovascular & Thoracic Surgery 08/06/20 John Webb MD [address] [id number] Cardiovascular Disease 08/25/21 John Webb MD [address] [id number] Cardiovascular Disease 08/25/21 Estella Hassan, [facility] [address] [place], [place] [address] Assigned MTM Pharmacist 12/09/21 Lindsay Carey OD [address] [place] [address] Ophthalmology 01/29/22 Richard Kam MD [address] [place], [place] 107[address] Assigned Musculoskeletal Provider 08/14/22 [place] [address] [facility] [place], [address] [phone] Assigned Neuroscience Provider 01/01/23 Rosemarie Mcdowell, RN Metal Shaping Machine Operator Diabetes Education 03/17/23 Ravi Brownlee MD [address] [place] [address] [address] [place], [place] [phone] Assigned Heart and Vascular Provider 09/04/23 01/03/24 Mitra Kendall, [employer] Health And Safety Instructor Primary Care - CC 12/12/23 documented as of this encounter
--- OUTSIDE RECORDS SUMMARY | 2024-01-31 20:04 | XMS_ITS | Encounter Summary ---
Author Organization [facility] Address [address] [place] [id number] Care Team Providers Care Medical Record Technician Name Role Phone Va Glez MD Primary Care Provider [phone] Va Glez MD Unavailable Christy Campuzano PA-C Unavailable [phone] Hans Cannon MD Unavailable [phone] Estella Hassan [facility] Unavailable Josh Cordero MD, Madhuri Unavailable [phone] John Webb MD Unavailable [phone] John Webb MD Unavailable Estella Hassan [facility] Unavailable Lindsay Carey OD Unavailable Richard Kam MD Unavailable Gaby Vila DO Unavailable [phone] Rosemarie Mcdowell RN Unavailable Ravi Brownlee MD Unavailable [phone] Mitra Kendall WEB MANAGER Unavailable [phone] Reason for Visit * Reason Comments Wellness Visit Annual wellness / wr ist pain Encounter Details Date Type Department Care Team (Late st Contact Info) Description 12/23/2023 1:00 PM CDT Office Visit [facility] [id number] [place] [phone] [place] Glez MD [id number] [place] [id number] Encounter for Medicare annual wellness exam (Primary Dx); Type 2 diabetes mellitus without complication, without long-term current use of insulin (H); Moderate persistent asthma without complication; Type 2 diabetes mellitus with hyperglycemia, without long-term current use of insulin (H); LUZ (generalized anxiety disorder); Major depressive disorder, recurrent episode, moderate (H); Gastroesophageal reflux disease without esophagitis; Screening for prostate cancer Social History Tobacco Use Types Packs/Day Years [...] PHQ-2 Score 2 12/23/2023 [facility] - Occupational Stress [...] on file 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 Gender Identity Not on file Sexual Orientation Not on file Occupation Industry Job Start Date Job End Date Not on file Not on file Not on file Not on file documented as of this encounter Last Filed Vital Signs Vital Sign Reading Time Taken Comments Blood Pressure 128/80 12/23/2023 1:03 PM CDT Pulse 100 12/23/2023 1:03 PM CDT Temperature 37.4 C (99.3 F) 12/23/2023 1:03 PM CDT Respiratory Rate 16 12/23/2023 1:03 PM CDT Oxygen Saturation 92% 12/23/2023 1:03 PM CDT Inhaled Oxygen Concentration - - Weight 135 kg (297 lb 9.6 oz) 12/23/2023 1:03 PM CDT Height 175.3 cm (5' 9) 12/23/2023 1:03 PM CDT Body Mass Index 43.95 12/23/2023 1:03 PM CDT documented in this encounter Patient Instructions * Patient Instructions* Va Glez MD - 12/23/2023 1:00 PM CDT Images from the original note were not included. Patient Education Preventive Care Advice This is general advice given by our system to help you stay healthy. However, your care team may have specific advice just for you. Please talk to your care team about your preventive care needs. Nutrition Eat 5 or more servings of fruits and vegetables each day. Try wheat bread, brown rice and whole grain pasta (instead of white bread, rice, and pasta). Get enough calcium and vitamin D. Check the label on foods and aim for 100% of the MANAGER DESKTOP (recommendeddaily allowance). Lifestyle Exercise at least 150 minutes each week (30 minutes a day, 5 days a week). Do muscle strengthening activities 2 days a week. These help control your weight and prevent disease. No smoking. Wear sunscreen to prevent skin cancer. Have a dental exam and cleaning every 6 months. Yearly exams See your health care team every year to talk about: Any changes in your health. Any medicines your care team has prescribed. Preventive care, family planning, and ways to prevent chronic diseases. Shots (vaccines) HPV shots (up to age 26), if you've never had them before. Hepatitis B shots (up to age 59), if you've never had them before. COVID-19 shot: Get this shot when it's due. Flu shot: Get a flu shot every year. Tetanus shot: Get a tetanus shot every 10 years. Pneumococcal, hepatitis A, and RSV shots: Ask your care team if you need these based on your risk. Shingles shot (for age 50 and up) General health tests Diabetes screening: Starting at age 35, Get screened for diabetes at least every 3 years. If you are younger than age 35, ask your care team if you should be screened for diabetes. Cholesterol test: At age 39, start having a cholesterol test every 5 years, or more often if advised. Bone density scan (DEXA): At age 50, ask your care team if you should have this scan for osteoporosis (brittle bones). Hepatitis C: Get tested at least once in your life. STIs (sexually transmitted infections) Before age 24: Ask your care team if you should be screened for STIs. After age 24: Get screened for STIs if you're at risk. You are at risk for STIs (including HIV) if: You are sexually active with more than one person. You don't use condoms every time. You or a partner was diagnosed with a sexually transmitted infection. If you are at risk for HIV, ask about PrEP medicine to prevent HIV. Get tested for HIV at least once in your life, whether you are at risk for HIV or not. Cancer screening tests Cervical cancer screening: If you have a cervix, begin getting regular cervical cancer screening tests starting at age 21. Breast cancer scan (mammogram): If you've ever had breasts, begin having regular mammograms starting at age 40. This is a scan to check for breast cancer. Colon cancer screening: It is important to start screening for colon cancer at age 45. Have a colonoscopy test every 10 years (or more often if you're at risk) Or, ask your provider about stool tests like a FIT test every year or Cologuard test every 3 years. To learn more about your testing options, visit: . For help making a decision, visit: https://bit.ly/qx60985. Prostate cancer screening test: If you have a prostate, ask your care team if a prostate cancer screening test (PSA) at age 55 is right for you. Lung cancer screening: If you are a current or former smoker ages 50 to 80, ask your care team if ongoing lung cancer screenings are right for you. For informational purposes only. Not to replace the advice of your health care provider. Copyright ?? 2022 [employer]. All rights reserved. Clinically reviewed by the [facility] Transitions Program. Myoonet 604839 - REV 04/06. Learning About Activities of Daily Living What are activities of daily living? Activities of daily living (ADLs) are the basic self-care tasks you do every day. These include eating, bathing, dressing, and moving around. As you age, and if you have health problems, you may find that it's harder to do some of these tasks. If so, your doctor can suggest ideas that may help. To measure what kind of help you may need, your doctor will ask how well you are able to do ADLs. Let your doctor know if there are any tasks that you are having trouble doing. This is an important first step to getting help. And when you have the help you need, you can stay as independent as possible. How will a doctor assess your ADLs? Asking about ADLs is part of a routine health checkup your doctor will likely do as you age. Your health check might be done in a doctor's office, in your home, or at a hospital. The goal is to find out if you are having any problems that could make it hard to care for yourself or that make it unsafe for you to be on your own. To measure your ADLs, your doctor will ask how hard it is for you to do routine tasks. Your doctor may also want to know if you have changed the way you do a task because of a health problem. Your doctor may watch how you: Walk back and forth. Keep your balance while you stand or walk. Move from sitting to standing or from a bed to a chair. Button or unbutton a shirt or sweater. Remove and put on your shoes. It's common to feel a little worried or anxious if you find you can't do all the things you used ericka able to do. Talking with your doctor about ADLs is a way to make sure you're as safe as possibleand able to care for yourself as well as you can. You may want to bring a caregiver, friend, or family member to your checkup. They can help you talk to your doctor. Follow-up care is a vázquez part of your treatment and safety. Be sure to make and go to all appointments, and call your doctor if you are having problems. It's also a good idea to know your test resultsand keep a list of the medicines you take. Current as of: January 04, 2023 Content Version: 14.2 ?? 2023 [facility] [employer]. Care instructions adapted under license by your healthcare professional. If you have questions about a medical condition or this instruction, always ask your healthcare professional. [employer] disclaims any warranty or liability for your use of this information. Preventing Falls: Care Instructions Injuries and health problems such as trouble walking or poor eyesight can increase your risk of falling. So can some medicines. But there are things you can do to help prevent falls. You can exerciseto get stronger. You can also arrange your home to make it safer. Talk to your doctor about the medicines you take. Ask if any of them increase the risk of falls andwhether they can be changed or stopped. Try to exercise regularly. It can help improve your strength and balance. This can help lower your risk of falling. Practice fall safety and prevention. Wear low-heeled shoes that fit well and give your feet good support. Talk to your doctor if you have foot problems that make this hard. Carry a cellphone or wear a medical alert device that you can use to call for help. Use stepladders instead of chairs to reach high objects. Don't climb if you're at risk for falls. Ask for help, if needed. Wear the correct eyeglasses, if you need them. Make your home safer. Remove rugs, cords, clutter, and furniture from walkways. Keep your house well lit. Use night-lights in hallways and bathrooms. Install and use sturdy handrails on stairways. Wear nonskid footwear, even inside. Don't walk barefoot or in socks without shoes. Be safe outside. Use handrails, curb cuts, and ramps whenever possible. Keep your hands free by using a shoulder bag or backpack. Try to walk in well-lit areas. Watch out for uneven ground, changes in pavement, and debris. Be careful in the winter. Walk on the grass or gravel when sidewalks are slippery. Use de-icer on steps and walkways. Add non-slip devices to shoes. Put grab bars and nonskid mats in your shower or tub and near the toilet. Try to use a shower chairor bath bench when bathing. Get into a tub or shower by putting in your weaker leg first. Get out with your strong side first. Have a phone or medical alert device in the bathroom with you. Where can you learn more? Go to https://www.[employer].net/patiented Enter G117 in the search box to learn more about Preventing Falls: Care Instructions. Current as of: September 27, 2022 Content Version: 14.2 ?? 2023 [facility] [employer]. Care instructions adapted under license by your healthcare professional. If you have questions about a medical condition or this instruction, always ask your healthcare professional. [employer] disclaims any warranty or liability for your use of this information. Hearing Loss: Care Instructions Overview Hearing loss is a sudden or slow decrease in how well you hear. It can range from slight to profound. Permanent hearing loss can occur with aging. It also can happen when you are exposed long-term toloud noise. Examples include listening to loud music, riding motorcycles, or being around other loud machines. Hearing loss can affect your work and home life. It can make you feel lonely or depressed. You may feel that you have lost your independence. But hearing aids and other devices can help you hear better and feel connected to others. Follow-up care is a vázquez part of your treatment and safety. Be sure to make and go to all appointments, and call your doctor if you are having problems. It's also a good idea to know your test resultsand keep a list of the medicines you take. How can you care for yourself at home? Avoid loud noises whenever possible. This helps keep your hearing from getting worse. Always wear hearing protection around loud noises. Wear a hearing aid as directed. A professional can help you pick a hearing aid that will work best for you. You can also get hearing aids over the counter for mild to moderate hearing loss. Have hearing tests as your doctor suggests. They can show whether your hearing has changed. Your hearing aid may need to be adjusted. Use other devices as needed. These may include: Telephone amplifiers and hearing aids that can connect to a television, stereo, radio, or microphone. Devices that use lights or vibrations. These alert you to the doorbell, a ringing telephone, or a baby monitor. Television closed-captioning. This shows the words at the bottom of the screen. Most new TVs can dothis. TTY (text telephone). This lets you type messages back and forth on the telephone instead of talking or listening. These devices are also called TDD. When messages are typed on the keyboard, they aresent over the phone line to a receiving TTY. The message is shown on a monitor. Use text messaging, social media, and email if it is hard for you to communicate by telephone. Try to learn a listening technique called speechreading. It is not lipreading. You pay attention topeople's gestures, expressions, posture, and tone of voice. These clues can help you understand what a person is saying. Face the person you are talking to, and have them face you. Make sure the lighting is good. You need to see the other person's face clearly. Think about counseling if you need help to adjust to your hearing loss. When should you call for help? Watch closely for changes in your health, and be sure to contact your doctor if: You think your hearing is getting worse. You have new symptoms, such as dizziness or nausea. Where can you learn more? Go to https://www.[employer].net/patiented Enter R798 in the search box to learn more about Hearing Loss: Care Instructions. Current as of: December 08, 2022 Content Version: 14.2 ?? 2023 [facility] [employer]. Care instructions adapted under license by your healthcare professional. If you have questions about a medical condition or this instruction, always ask your healthcare professional. [employer] disclaims any warranty or liability for your use of this information. Learning About Stress What is stress? Stress is your body's response to a hard situation. Your body can have a physical, emotional, or mental response. Stress is a fact of life for most people, and it affects everyone differently. What causes stress for you may not be stressful for someone else. A lot of things can cause stress. You may feel stress when you go on a job interview, take a test, or run a race. This kind of short-term stress is normal and even useful. It can help you if you needto work hard or react quickly. For example, stress can help you finish an important job on time. Long-term stress is caused by ongoing stressful situations or events. Examples of long-term stress include long-term health problems, ongoing problems at work, or conflicts in your family. Long-term stress can harm your health. How does stress affect your health? When you are stressed, your body responds as though you are in danger. It makes hormones that speedup your heart, make you breathe faster, and give you a burst of energy. This is called the sheyh-nz-zuvgwx stress response. If the stress is over quickly, your body goes back to normal and no harm isdone. But if stress happens too often or lasts too long, it can have bad effects. Long-term stress can make you more likely to get sick, and it can make symptoms of some diseases worse. If you tense up when you are stressed, you may develop neck, shoulder, or low back pain. Stress is linked to high bloodpressure and heart disease. Stress also harms your emotional health. It can make you harris, tense, or depressed. Your relationships may suffer, and you may not do well at work or school. What can you do to manage stress? You can try these things to help manage stress: Do something active. Exercise or activity can help reduce stress. Walking is a great way to get started. Even everyday activities such as housecleaning or yard work can help. Try yoga or konstantin chi. These techniques combine exercise and meditation. You may need some training at first to learn them. Do something you enjoy. For example, listen to music or go to a movie. Practice your hobby or do volunteer work. Meditate. This can help you relax, because you are not worrying about what happened before or what may happen in the future. Do guided imagery. Imagine yourself in any setting that helps you feel calm. You can use online videos, books, or a teacher to guide you. Do breathing exercises. For example: From a standing position, bend forward from the waist with your knees slightly bent. Let your arms dangle close to the floor. Breathe in slowly and deeply as you return to a standing position. Roll up slowly and lift your head last. Hold your breath for just a few seconds in the standing position. Breathe out slowly and bend forward from the waist. Let your feelings out. Talk, laugh, cry, and express anger when you need to. Talking with supportive friends or family, a counselor, or a era leader about your feelings is a healthy way to relieve stress. Avoid discussing your feelings with people who make you feel worse. Write. It may help to write about things that are bothering you. This helps you find out how much stress you feel and what is causing it. When you know this, you can find better ways to cope. What can you do to prevent stress? You might try some of these things to help prevent stress: Manage your time. This helps you find time to do the things you want and need to do. Get enough sleep. Your body recovers from the stresses of the day while you are sleeping. Get support. Your family, friends, and community can make a difference in how you experience stress. Limit your news feed. Avoid or limit time on social media or news that may make you feel stressed. Do something active. Exercise or activity can help reduce stress. Walking is a great way to get started. Where can you learn more? Go to https://www.[employer].net/patiented Enter N032 in the search box to learn more about Learning About Stress. Current as of: January 04, 2023 Content Version: 14.2 ?? 2023 [facility] [employer]. Care instructions adapted under license by your healthcare professional. If you have questions about a medical condition or this instruction, always ask your healthcare professional. [employer] disclaims any warranty or liability for your use of this information. Learning About Sleeping Well What does sleeping well mean? Sleeping well means getting enough sleep to feel good and stay healthy. How much sleep is enough varies among people. The number of hours you sleep and how you feel when you wake up are both important. If you do not feel refreshed, you probably need more sleep. Another sign of not getting enough sleep is feeling tired during the day. Experts recommend that adults get at least 7 or more hours of sleep per day. Children and older adults need more sleep. Why is getting enough sleep important? Getting enough quality sleep is a basic part of good health. When your sleep suffers, your physicalhealth, mood, and your thoughts can suffer too. You may find yourself feeling more grumpy or stressed. Not getting enough sleep also can lead to serious problems, including injury, accidents, anxiety, and depression. What might cause poor sleeping? Many things can cause sleep problems, including: Changes to your sleep schedule. Stress. Stress can be caused by fear about a single event, such as giving a speech. Or you may haveongoing stress, such as worry about work or school. Depression, anxiety, and other mental or emotional conditions. Changes in your sleep habits or surroundings. This includes changes that happen where you sleep, such as noise, light, or sleeping in a different bed. It also includes changes in your sleep pattern, such as having jet lag or working a late shift. Health problems, such as pain, breathing problems, and restless legs syndrome. Lack of regular exercise. Using alcohol, nicotine, or caffeine before bed. How can you help yourself? Here are some tips that may help you sleep more soundly and wake up feeling more refreshed. Your sleeping area Use your bedroom only for sleeping and sex. A bit of light reading may help you fall asleep. But ifit doesn't, do your reading elsewhere in the house. Try not to use your TV, computer, smartphone, or tablet while you are in bed. Be sure your bed is big enough to stretch out comfortably, especially if you have a sleep partner. Keep your bedroom quiet, dark, and cool. Use curtains, blinds, or a sleep mask to block out light. To block out noise, use earplugs, soothing music, or a white noise machine. Your evening and bedtime routine Create a relaxing bedtime routine. You might want to take a warm shower or bath, or listen to soothing music. Go to bed at the same time every night. And get up at the same time every morning, even if you feeltired. What to avoid Limit caffeine (coffee, tea, caffeinated sodas) during the day, and don't have any for at least 6 hours before bedtime. Avoid drinking alcohol before bedtime. Alcohol can cause you to wake up more often during the night. Try not to smoke or use tobacco, especially in the evening. Nicotine can keep you awake. Limit naps during the day, especially close to bedtime. Avoid lying in bed awake for too long. If you can't fall asleep or if you wake up in the middle of the night and can't get back to sleep within about 20 minutes, get out of bed and go to another roomuntil you feel sleepy. Avoid taking medicine right before bed that may keep you awake or make you feel hyper or energized.Your doctor can tell you if your medicine may do this and if you can take it earlier in the day. If you can't sleep Imagine yourself in a peaceful, pleasant scene. Focus on the details and feelings of being in a place that is relaxing. Get up and do a quiet or boring activity until you feel sleepy. Avoid drinking any liquids before going to bed to help prevent waking up often to use the bathroom. Where can you learn more? Go to https://www.[employer].net/patiented Enter J942 in the search box to learn more about Learning About Sleeping Well. Current as of: September 20, 2022 Content Version: 14.2 ?? 2023 [employer]. Care instructions adapted under license by your healthcare professional. If you have questions about a medical condition or this instruction, always ask your healthcare professional. [employer] disclaims any warranty or liability for your use of this information. Learning About Depression Screening What is depression screening? Depression screening is a way to see if you have depression symptoms. It may be done by a doctor orcounselor. It's often part of a routine checkup. That's because your mental health is just as important as your physical health. Depression is a mental health condition that affects how you feel, think, and act. You may: Have less energy. Lose interest in your daily activities. Feel sad and grouchy for a long time. Depression is very common. It affects people of all ages. Many things can lead to depression. Some people become depressed after they have a stroke or find out they have a major illness like cancer or heart disease. The of a loved one or a breakup maylead to depression. It can run in families. Most experts believe that a combination of inherited genes and stressful life events can cause it. What happens during screening? You may be asked to fill out a form about your depression symptoms. You and the doctor will discussyour answers. The doctor may ask you more questions to learn more about how you think, act, and feel. What happens after screening? If you have symptoms of depression, your doctor will talk to you about your options. Doctors usually treat depression with medicines or counseling. Often, combining the two works best.Many people don't get help because they think that they'll get over the depression on their own. But people with depression may not get better unless they get treatment. The cause of depression is not well understood. There may be many factors involved. But if you havedepression, it's not your fault. A serious symptom of depression is thinking about or suicide. If you or someone you care about talks about this or about feeling hopeless, get help right away. It's important to know that depression can be treated. Medicine, counseling, and self-care may help. Where can you learn more? Go to https://www.Pass[employer].net/patiented Enter T185 in the search box to learn more about Learning About Depression Screening. Current as of: September 04, 2022 Content Version: 14.2 ?? 2023 [employer]. Care instructions adapted under license by your healthcare professional. If you have questions about a medical condition or this instruction, always ask your healthcare professional. [employer] disclaims any warranty or liability for your use of this information. documented in this encounter Progress Notes * Va Glez MD - 12/23/2023 1:00 PM CDT Images from the original note were not included. Answers submitted by the patient for this visit: Patient Health Questionnaire (Submitted on 12/23/2023) If you checked off any problems, how difficult have these problems made it for you to do your work,take care of things at home, or get along with other people?: Somewhat difficult PHQ9 TOTAL SCORE: 9 Patient Health Questionnaire (G7) (Submitted on 12/23/2023) LUZ 7 TOTAL SCORE: 11 Preventive Care Visit [facility] Va Glez MD, Family Medicine Dec 23, 2023 Assessment & Plan Problem List Items Addressed This Visit Moderate persistent asthma without complication Still not controlled, pt went to waste/materials exchange specialist who switched to Formoterol, and BUdesonide nebs daily. Pt has to use his Nebulizer machine to use Albuterol neb at least about 1 to 2 times a day. Major depressive disorder, recurrent episode, moderate (H) Relevant Medications escitalopram (LEXAPRO) 10 MG tablet Type 2 diabetes mellitus with hyperglycemia, without long-term current use of insulin (H) Diabetes is controlled, he did not start on semaglutide, only taking metformin and glipizide. Continue current treatment regimen. Pt it planning to start on semaglutide which I think it will help him with weight loss. Diabetes will be reassessed in 6 months. Relevant Medications atorvastatin (LIPITOR) 40 MG tablet LUZ (generalized anxiety disorder) Per patient, pt anxiety has been worse ernesto is still struggling with a relationship with his . Continue on Escitalopram 10 mg Relevant Medications escitalopram (LEXAPRO) 10 MG tablet Esophageal reflux Continue on omeprazole 40 m g daily. Other Visit Diagnoses Encounter for Medicare annual wellness exam - Primary Type 2 diabetes mellitus without complication, without long-term current use of insulin (H) Relevant Medications atorvastatin (LIPITOR) 40 MG tablet Other Relevant Orders Lipid panel reflex to direct LDL Non-fasting FOOT EXAM (Completed) Hemoglobin A1c (Completed) Screening for prostate cancer Relevant Orders PSA, screen Counseling Appropriate preventive services were addressed with this patient via screening, questionnaire, or discussion as appropriate for fall prevention, nutrition, physical activity, Tobacco-use cessation, social engagement, weight loss and cognition. Checklist reviewing preventive services available has been given to the patient. Reviewed patient's diet, addressing concerns and/or questions. He is at risk for lack of exercise and has been provided with information to increase physical activity for the benefit of his well-being. The patient was instructed to see the dentist every 6 months. Discussed possible causes of fatigue. Updated plan of care. Patient reported difficulty with activities of daily living were addressed today.Patient reported safety concerns were addressed today.The patient was provided with written information regarding signs of hearing loss. The patient's PHQ-9 score is consistent with mild depression. He was provided with information regarding depression. Roseline Green is a 63 year old, presenting for the following: Wellness Visit (Annual wellness / wrist pain ) 12/23/2023 1:02 PM Additional Questions Roomed by erna turcios Health Care Directive Patient does not have a Health Care Directive or Living Will: HPI Diabetes Follow-up How often are you checking your blood sugar? Continuous glucose monitor What time of day are you checking your blood sugars (select all that apply)? Before and after meals Have you had any blood sugars above 200? No Have you had any blood sugars below 70? No What symptoms do you notice when your blood sugar is low? None What concerns do you have today about your diabetes? None Do you have any of these symptoms? (Select all that apply) No numbness or tingling in feet. No redness, sores or blisters on feet. No complaints of excessive thirst. No reports of blurry vision. No significant changes to weight. Have you had a diabetic eye exam in the last 12 months? No BP Readings from Last 2 Encounters: 12/23/23 128/80 12/21/23 122/76 Hemoglobin A1C (%) Date Value 12/23/2023 9.1 (H) 09/13/2023 8.4 (H) 07/16/2020 6.6 (H) 07/09/2020 6.5 (H) LDL Cholesterol Calculated (mg/dL) Date Value 01/18/2023 80 11/04/2020 59 09/13/2019 92 07/03/2018 89 12/23/2023 General Health How would you rate your overall physical health? (!) FAIR Feel stress (tense, anxious, or unable to sleep) Rather much (!) STRESS CONCERN 12/23/2023 Nutrition Diet: Regular (no restrictions) Diabetic Breakfast skipped Multiple values from one day are sorted in reverse-chronological order 12/23/2023 Exercise Days per week of moderate/strenous exercise 2 days (!) EXERCISE CONCERN 12/23/2023 Social Factors Frequency of gathering with friends or relatives Once a week Worry food won't last until get money to buy more Patient declined Food not last or not have enough money for food? No Do you have housing? (Housing is defined as stable permanent housing and does not include staying ouside in a car, in a tent, in an abandoned building, in an overnight usp, 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.) Yes Are you worried about losing your housing? No Lack of transportation? No Unable to get utilities (heat,electricity)? No 12/23/2023 Fall Risk Fallen 2 or more times in the past year? No No Trouble with walking or balance? Yes Yes Gait Speed Test (Document in seconds) 4 Gait Speed Test Interpretation Less than or equal to 5.00 seconds - PASS Multiple values from one day are sorted in reverse-chronological order 12/23/2023 Activities of Daily Living- Home Safety Needs help with the following daily activites Housework Money management Safety concerns in the home No grab bars in the bathroom Multiple values from one day are sorted in reverse-chronological order 12/23/2023 Dental Dentist two times every year? (!) NO 12/23/2023 Hearing Screening Hearing concerns? (!) I NEED TO ASK PEOPLE TO SPEAK UP OR REPEAT THEMSELVES. (!) IT'S HARD TO FOLLOW A CONVERSATION IN A NOISY RESTAURANT OR CROWDED ROOM. Multiple values from one day are sorted in reverse-chronological order 12/23/2023 Driving Risk Screening Patient/family members have concerns about driving No 12/23/2023 General Alertness/Fatigue Screening Have you been more tired than usual lately? (!) YES 12/23/2023 Urinary Incontinence Screening Bothered by leaking urine in past 6 months No 12/23/2023 TB Screening Were you born outside of the [place]? No Today's PHQ-9 Score: 12/23/2023 12:36 PM PHQ-9 SCORE PHQ-9 Total Score MyChart 9 (Mild depression) PHQ-9 Total Score 9 12/23/2023 Substance Use Alcohol more than 3/day or more than 7/wk Not Applicable Do you have a current opioid prescription? No How severe/bad is pain from 1 to 10? 6/10 Do you use any other substances recreationally? No Social History Tobacco Use Smoking status: Former Current packs/day: 0.00 Types: Cigarettes Quit date: 12/03/1983 Years since quittin.0 Passive exposure: Past Smokeless tobacco: Never Vaping Use Vaping status: Never Used Substance Use Topics Alcohol use: Not Currently Comment: occ Drug use: No Last PSA: PSA Date Value Ref Range Status 07/03/2018 2.74 0 - 4 ug/L Final Comment: Assay Method: Chemiluminescence using Siemens [place] analyzer Prostate Specific Antigen Screen Date Value Ref Range Status 08/04/2021 3.71 0.00 - 4.00 ug/L Final ASCVD Risk Contracts Intern The 10-year ASCVD risk score (Kenya MANN, et al., 2019) is: 19.5% Values used to calculate the score: Age: 63 years Sex: Male Is Non- : No Diabetic: Yes Tobacco smoker: No Systolic Blood Pressure: 128 mmHg Is BP treated: No HDL Cholesterol: 48 mg/dL Total Cholesterol: 149 mg/dL Reviewed and updated as needed this visit by Provider Past Medical History: Diagnosis Date Arthritis of [...] Location: [facility] TOE SURGERY age 16 Current providers sharing in care for this patient include: Patient Care Team: Va Glez MD as PCP - General (Family Practice) Va Glez MD as Assigned PCP Christy Campuzano PA-C as Referring Physician (Family Medicine) Hans Cannon MD as Resident (Pulmonary Disease) Estella Hassan RPH as Pharmacist (Pharmacist) Elaina Moreno MD as MD (Cardiovascular & Thoracic Surgery) John Webb MD as MD (Cardiovascular Disease) John Webb MD as MD (Cardiovascular Disease) Estella Hassan RPH as Assigned MTM Pharmacist Lindsay Carey OD as MD (Ophthalmology) Richard Kam MD as Assigned Musculoskeletal Provider Gaby Vila DO as Assigned Neuroscience Provider Rosemarie Mcdowell RN as Senior Marketing Manager (Diabetes Education) Ravi Brownlee MD as Assigned Heart and Vascular Provider Mitra Kendall LSW as Lead Predatory Animal Hunter (Primary Care - CC) The following health maintenance items are reviewed in Epic and correct as of today: Health Maintenance Topic Date Due EYE EXAM Never done COLORECTAL CANCER SCREENING Never done MEDICARE ANNUAL WELLNESS VISIT 10/21/2023 DIABETIC FOOT EXAM 10/21/2023 COVID-19 Vaccine ( season) 2023 LIPID 01/19/2024 ANNUAL REVIEW OF HM ORDERS 01/19/2024 A1C 03/15/2024 ASTHMA CONTROL TEST 06/22/2024 PHQ-9 06/22/2024 ASTHMA ACTION PLAN 07/04/2024 MICROALBUMIN 09/12/2024 BMP 11/07/2024 FALL RISK ASSESSMENT 12/22/2024 ADVANCE CARE PLANNING 10/21/2027 DTAP/TDAP/TD IMMUNIZATION (2 - Td or Tdap) 01/03/2028 HEPATITIS C SCREENING Completed HIV SCREENING Completed DEPRESSION ACTION PLAN Completed INFLUENZA VACCINE Completed Pneumococcal Vaccine: 65+ Years Completed ZOSTER IMMUNIZATION Completed RSV VACCINE Completed AORTIC ANEURYSM SCREENING (SYSTEM ASSIGNED) Completed Medicare Annual MTM Pharmacist Visit (once per calendar year) Completed HPV IMMUNIZATION Aged Out MENINGITIS IMMUNIZATION Aged Out RSV MONOCLONAL ANTIBODY Aged Out Review of Systems Constitutional, HEENT, cardiovascular, pulmonary, GI, , musculoskeletal, neuro, skin, endocrine and psych systems are negative, except as otherwise noted. Objective Exam BP 128/80 (BP Location: Left arm, Patient Position: Sitting, Cuff Size: Adult Regular) Pulse 100 Temp 99.3 ??F (37.4 ??C) (Oral) Resp 16 Ht 1.753 m (5' 9) Wt 135 kg (297 lb 9.6 oz) SpO2 92% BMI 43.95 kg/m?? Estimated body mass index is 43.95 kg/m?? as calculated from the following: Height as of this encounter: 1.753 m (5' 9). Weight as of this encounter: 135 kg (297 lb 9.6 oz). Physical Exam GENERAL: alert and no distress NECK: no adenopathy, no asymmetry, masses, or scars RESP: lungs clear to auscultation - no rales, rhonchi or wheezes CV: regular rate and rhythm, normal S1 S2, no S3 or S4, no murmur, click or rub, no peripheral edema ABDOMEN: soft, nontender, no hepatosplenomegaly, no masses and bowel sounds normal MS: no gross musculoskeletal defects noted, no edema Diabetic foot exam: normal DP and PT pulses, no trophic changes or ulcerative lesions, and normal sensory exam 12/23/2023 Mini Cog Mini-Cog Not Completed (choose reason) Mental handicap Signed Electronically by: Va Glez MD documented in this encounter Miscellaneous Notes * Assessment & Plan Note - Va Glez MD - 12/23/2023 1:24 PM CDTAssociated Problem(s): Esophageal reflux Continue on omeprazole 40 m g daily. * Assessment & Plan Note - Va Glez MD - 12/23/2023 1:18 PM CDTAssociated Problem(s): LUZ (generalized anxiety disorder) Per patient, pt anxiety has been worse ernesto is still struggling with a relationship with his . Continue on Escitalopram 10 mg * Assessment & Plan Note - Va Glez MD - 12/23/2023 1:16 PM CDTAssociated Problem(s): Type 2 diabetes mellitus with hyperglycemia, without long-term current use of insulin (H) Diabetes is controlled, he did not start on semaglutide, only taking metformin and glipizide. Continue current treatment regimen. Pt it planning to start on semaglutide which I think it will help him with weight loss. Diabetes will be reassessed in 6 months. * Assessment & Plan Note - Va Glez MD - 12/23/2023 1:15 PM CDTAssociated Problem(s): Moderate persistent asthma without complication Still not controlled, pt went to waste/materials exchange specialist who switched to Formoterol, and BUdesonide nebs daily. documented in this encounter Plan of Treatment Upcoming Encounters Date Type Department Care Team (Late st Contact Info) Description 02/01/2024 3:00 PM RATING OFFICER Office Visit [address] [phone] Manuel Ahn, OD [address] [facility] [place] [address] 02/02/2024 1:30 PM RATING OFFICER Therapy Visit [facility] [address] [facility] [address] [place] [phone] Alicja Roldan, OT [address] [place] [address] 02/05/2024 8:00 PM RATING OFFICER Therapy Visit [facility] [place] [address] [facility] [address] [place] [phone] 02/13/2024 4:30 PM RATING OFFICER Oncology Visit [facility] [address] [place] [phone] Marian Agustin, ORAL AND MAXILLOFACIAL PATHOLOGIST [facility] [address] [facility] [address] [place] [address] 03/01/2024 7:00 AM RATING OFFICER Office [facility] [address] [place] [phone] Estella Hassan, [facility] [address] [place] [address] 03/23/2024 2:00 PM RATING OFFICER Office Visit [facility] [address] [place] [address] [place] [phone] Lizet Mann PA-C [address] [place], [place] [phone] 03/29/2024 3:30 PM RATING OFFICER Office Visit [facility] [address] [facility] [address] [place] [phone] Hakeem Chacko MBBS [address] [place] [address] 05/03/2024 3:00 PM RATING OFFICER Office Visit [address] [phone] Gaurav Valenzuela APRN [facility] [address] [place] [address] [address] [place] [address] 05/22/2024 10:30 AM CDT Office Visit [facility] [id number] [place] [phone] Estella Hassan, [facility] [address] [place] [address] 05/22/2024 11:30 AM CDT Office Visit [address] [phone] [place] [address] [place], [place] [phone] documented as of this encounter Goals Goal [...] job and will access resources that the [facility] offers. . Sarted new job 4. [...] Due or Overdue 20%(01/27/20 24 7:55 AM RATING OFFICER) No Mitra Kendall, SILVER Note: Barriers: Life [...] Procedure Name Priority Date/Time Associated Diagnosis Comments PROSTATE SPECIFIC ANTIGEN SCREEN Routine 12/23/2023 1:51 PM CDT Screening for prostate cancer LIPID REFLEX TO DIRECT LDL PANEL Routine 12/23/2023 1:51 PM CDT Type 2 diabetes mellitus without complication, without long-term current use of insulin (H) HEMOGLOBIN A1C Routine 12/23/2023 1:51 PM CDT Type 2 diabetes mellitus without complication, without long-term current use of insulin (H) documented in this encounter Results * (ABNORMAL) Hemoglobin A1c (12/23/2023 1:51 PM [...] BLOOD ORDERABLES Final Res ult CR LABORATORY [facility] [place] [facility] [address] [facility] Lab (no room number, 1st floor of clinic) [place] [address], [facility] * (ABNORMAL) PSA, screen (12/23/2023 1:51 PM CDT) Pathologist [facility] Prostate Specific Antigen Screen 6.04(H) 0.00 - 4.50 ng/mL 12/23/2023 9:54 PM CDT [facility] Blood BLOOD SPECIMEN / Unknown Venipuncture / Unknown 12/23/2023 1:51 PM CDT 12/23/2023 1:51 PM CDT [facility]ORY - 12/23/2023 9:54 PM CDT This [...] is needed to diagnose prostate pathology. The [employer] recommends annual examination with digital [...] LAB - BLOOD ORDERABLES Final Res ult U LABORATORY [facility] [address] [facility] [address] [facility], [address] [place] [address], [facility] * Lipid panel reflex to direct [...] Final Res ult [facility] [address] [facility], [address] [place] [address], [facility] documented in this encounter Visit Diagnoses Diagnosis Encounter for Medicare annual wellness exam- Primary Routine general medical examination at a health care facility Type 2 diabetes mellitus without complication, without long-term current use of insulin (H) Moderate persistent asthma without complication Unspecified asthma Type 2 diabetes mellitus with hyperglycemia, without long-term current use of insulin (H) LUZ (generalized anxiety disorder) Generalized anxiety disorder Major depressive disorder, recurrent episode, moderate (H) Major depressive disorder, recurrent episode, moderate Gastroesophageal reflux disease without esophagitis Esophageal reflux Screening for prostate cancer Special screening for malignant neoplasm of prostate documented in this encounter Additional Health Concerns [...] as of this encounter Care Teams Medical Record Technician Relationship Specialty [place] [address] [place] [address] PCP - General Family Practice 07/11/14 [place] [address] [place] [address] Assigned PCP 12/16/11 Christy Campuzano PA-C [address] [place] [address] [id number] Referring Physician Family Medicine 04/22/20 Hans Cannon MD [address] [place] [address] [phone] Resident Pulmonary Disease 04/22/20 Estella Hassan, [facility] [address] [place] [address] Pharmacist Pharmacist 05/26/20 Elaina Moreno MD [address] [place] [address] [phone] Cardiovascular & Thoracic Surgery 08/06/20 John Webb MD [address] [id number] Cardiovascular Disease 08/25/21 John Webb MD [address] [id number] Cardiovascular Disease 08/25/21 Estella Hassan, [facility] [address] [place] [phone] Assigned MTM Pharmacist 12/09/21 Lindsay Carey OD [address] [facility] [address] Ophthalmology 01/29/22 Richard Kam MD [address] [place] [address] [phone] Assigned Musculoskeletal Provider 08/14/22 [place] [address] [place] [address] [address] Assigned Neuroscience Provider 01/01/23 Rosemarie Mcdowell, RN Senior Marketing Manager Diabetes Education 03/17/23 Ravi Brownlee MD [address] [place] [address] Assigned Heart and Vascular Provider 09/04/23 01/03/24 Mitra Kendall, WEB MANAGER Lead Predatory Animal Hunter Primary Care - CC 12/12/23 documented as of this encounter
--- OUTSIDE RECORDS SUMMARY | 2024-01-31 20:04 | XMS_ITS | Encounter Summary ---
Author Organization [facility] Address [address] [place] [address] Care Team Providers Care Sticker Hand Name Role Phone Va Glez MD Primary Care Provider [phone] Va Glez MD Unavailable Christy Campuzano PA-C Unavailable [phone] Hans Cannon MD Unavailable Estella Hassan [facility] Unavailable Josh Cordero MD, Elaina Unavailable [phone] John Webb MD Unavailable [phone] John Webb MD Unavailable [phone] [facility] Unavailable Lindsay Carey OD Unavailable Richard Kam MD Unavailable Gaby Vila DO Unavailable Rosemarie Mcdowell RN Unavailable [phone] Ravi Brownlee MD Unavailable Mitra Kendall REFRIGERATOR ASSEMBLER Unavailable [phone] Reason for Referral * Diagnostic Imaging CT Scan (Routine) - Closed Specialty Diagnoses / Procedures Referred By Contac t Referred To Contact Radiology. Diagnoses Mediastinal cyst Procedures CT Chest w contrast Marian Agustin, LICENSED DISPENSING OPTICIAN [facility] [address] [facility] [address] [place] [address] Phone: tel: fax: Referral ID Status Reason Start Date Expiration Date Visits Re quested Visits Authorized [id number] Closed 12/30/2023 12/29/2024 1 1 Encounter Details Date Type Department Care Team (Late st Contact Info) Description 12/30/2023 Orders Only [facility] [address] [place] [address] Claribel Mauricio RN Mediastinal cyst (Primary Dx) Social History Tobacco Use Types [...] Answer Date Recorded PHQ-2 Score 2 12/23/2023 [facility] of Occupat ional Health - Occupational Stress [...] file Legal 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 WATER POLLUTION CONTROL INSPECTOR Gender Identity Not on file Sexual Orientation Not on file Occupation Industry Job Start Date Job End Date Not on file Not on file Not on file Not on file documented as of this encounter Plan of Treatment Upcoming Encounters Date Type Department Care Team (Late st Contact Info) Description 02/01/2024 3:00 PM WATER POLLUTION CONTROL INSPECTOR Office Visit [facility] 6341 [place] [phone] Manuel Ahn, OD [address] [place] [address] 02/02/2024 1:30 PM WATER POLLUTION CONTROL INSPECTOR Therapy Visit [facility] [address] [facility] [address] [place] [phone] Alicja Roldan, OT 909 [place] [address] 02/05/2024 8:00 PM WATER POLLUTION CONTROL INSPECTOR Therapy Visit [facility] [place] [address] [facility] 103 [place] [phone] 02/13/2024 4:30 PM WATER POLLUTION CONTROL INSPECTOR [facility]cology [facility] [address] [place] [phone] Marian Agustin, LICENSED DISPENSING OPTICIAN [facility] [address] [facility] 207 [place] [address] 03/01/2024 7:00 AM WATER POLLUTION CONTROL INSPECTOR Office Visit [facility] [address] [place] [phone] Estella Hassan, [facility] [address] [place] [address] 03/23/2024 2:00 PM WATER POLLUTION CONTROL INSPECTOR Office Visit [facility] [address] [place] [address] [place] [phone] Lizet Mann PA-C 717 [place] [address] 03/29/2024 3:30 PM WATER POLLUTION CONTROL INSPECTOR Office Visit [address] [place] [address] Hakeem Chacko MBBS [facility]5 [place] [address] 05/03/2024 3:00 PM WATER POLLUTION CONTROL INSPECTOR Office Visit [address] [phone] Gaurav Valenzuela, LICENSED DISPENSING OPTICIAN [facility] [place] [address] 05/22/2024 10:30 AM CDT Office Visit [address] [phone] Estella Hassan, [facility] [address] [place] [address] 05/22/2024 11:30 AM CDT Office Visit [address] [phone] Va Glez MD [address] [place] [address] [phone] documented as of this encounter Goals Goal Patient Goal Type Associated Problems Recent Progress Patient-Stated? Author Health Maintenance Care Plan HP GENERAL PROBLEM 100%( 023 10:17 AM CDT) No Mitra Kendall, REFRIGERATOR ASSEMBLER Note: Update on 05/25/22 Barriers: Currently without [...] for health insurance by looking in to [employer] and talking with a FRW. Completed 3. I will look for a new job and will access resources that the [employer] offers. . Sarted new job 4. Continue [...] Maintenance Due or Overdue 20%(01/27/20 7:55 AM WATER POLLUTION CONTROL INSPECTOR) No Mitra Kendall LSW Note: Barriers: Life [...] documented as of this encounter Results * CT Chest w [...] similar to previous. 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 3. I will update CCC Team at outreach. HbA1C Not In Goal 04/28/2023 Diabetes Self-Management Edu cation Needed to Optimize Self-Care Behaviors 04/28/2023 Health Maintenance Due or Overdue 12/16/2023 Assessment Noted Time PHQ-9 Depression Total Score: 9 12/23/19 24 12:36 PM CDT documented as of this encounter Care Teams Sticker Hand Relationship Specialty [place] [address] [place] [address] PCP - General Family Practice 07/11/14 [place] [address] [place], [place] [phone] Assigned PCP 12/16/11 Christy Campuzano PA-C [address] [place] [address] [id number] Referring Physician Family Medicine 04/22/20 Hans Cannon MD [address] [place] [address] Resident Pulmonary Disease 04/22/20 Estella Hassan, [facility] [place] [address] Pharmacist Pharmacist 05/26/20 Elaina Moreno MD [address] [place] [address] Cardiovascular & Thoracic Surgery 08/06/20 John Webb MD [address] [address] Cardiovascular Disease 08/25/21 John Webb MD [address] [id number] Cardiovascular Disease 08/25/21 Estella Hassan, [facility] [place] [address] Assigned MTM Pharmacist 12/09/21 Lindsay Carey, ARA [address] [facility] [place] [address] Ophthalmology 01/29/22 Richard Kam MD [address] [place] [address] [id number] Assigned Musculoskeletal Provider 08/14/22 [place] [address] [address] [place], [address] [address] Assigned Neuroscience Provider 01/01/23 Rosemarie Mcdowell, RN Solar Sales Energy Advisor Diabetes Education 03/17/23 Ravi Brownlee MD [address] [place] [address] [id number] Assigned Heart and Vascular Provider 09/04/23 01/03/24 Mitra Kendall, REFRIGERATOR ASSEMBLER Lead Pick Up Worker Primary Care - CC 12/12/23 documented as of this encounter
--- OUTSIDE RECORDS SUMMARY | 2024-01-31 20:04 | XMS_ITS | Encounter Summary ---
Author Organization [facility] Address [address] [place] [address] Care Team Providers Care Dye Range Tender Name Role Phone Va Glez MD Primary Care Provider [phone] Va Glez MD Unavailable Christy Campuzano PA-C Unavailable [phone] Hans Cannon MD Unavailable [phone] Estella Hassan [facility] Unavailable [phone] Josh Cordero MD, Madhuri Unavailable [phone] John Webb MD Unavailable [phone] John Webb MD Unavailable Estella Hassan [facility] Unavailable [phone] Lindsay Carey OD Unavailable Richard Kam MD Unavailable Gaby Vila DO Unavailable [phone] Rosemarie Mcdowell RN Unavailable Ravi Brownlee MD Unavailable [phone] Mitra Kendall TANKER SERVICEMAN Unavailable [phone] Encounter Details Date Type Department Care Team (Latest Contact Info) Description 12/27/2023 Travel Social History Tobacco Use Types Packs/Day [...] re latives? Once a week 12/23/2023 Attends [employer] Not on file 12/22 Active Member [...] Answer Date Recorded PHQ-2 Score 2 12/23/2023 [facility] [place] of Occupat ional Health - Occupational Stress [...] on file Legal 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 GLASS VIAL FILLER Gender Identity Not on file Sexual Orientation Not on file Occupation Industry Job Start Date Job End Date Not on file Not on file Not on file Not on file documented as of this encounter Plan of Treatment Upcoming Encounters Date Type Department Care Team (Late st Contact Info) Description 02/01/2024 3:00 PM GLASS VIAL FILLER Office Visit [address] [phone] Manuel Ahn, [address] [place] [address] 02/02/2024 1:30 PM GLASS VIAL FILLER Therapy Visit [facility] [place] [address] [facility] [address] [place] [phone] Alicja Roldan, OT 909 [place], [place] 2540[address] 02/05/2024 8:00 PM GLASS VIAL FILLER Therapy Visit [facility] Sleep [facility] 6[address] [facility] 103 [place] [address] 02/13/2024 4:30 PM GLASS VIAL FILLER [facility] 9[address] [facility] [place] [phone] Marian Agustin, [facility] [address] [facility] 207 [place] [address] 03/01/2024 7:00 AM GLASS VIAL FILLER Office Visit [facility] [address] [place] [phone] Estella Hassan, [facility] 3033 [place] [address] 03/23/2024 2:00 PM GLASS VIAL FILLER Office Visit [facility] [address] [place] [address] [place] [address] Lizet Mann PA-C [address] [facility] [place] [address] 03/29/2024 3:30 PM GLASS VIAL FILLER Office Visit [facility] 2945 [facility] 200 [place] [phone] Hakeem Chacko MBBS 2945 [place] [address] 05/03/2024 3:00 PM GLASS VIAL FILLER Office Visit [facility] [place] [address] [place] [phone] Gaurav Valenzuela, [employer] [facility] [address] [place] [address] 05/22/2024 10:30 AM CDT Office Visit [facility] [address] [place] [phone] Estella Hassan, [facility] [address] [place] [address] 05/22/2024 11:30 AM CDT Office Visit [facility] [address] [place] [phone] [place] [address] [place], [place] [phone] documented as of this encounter Goals Goal [...] for health insurance by looking in to [email or web address] and talking with a FRW. Completed 3. I will look for a new job and will access resources that the [employer] offers. . Sarted new job 4. [...] Due or Overdue 20%(01/27/20 24 7:55 AM GLASS VIAL FILLER) No Mitra Kendall LSW Note: Barriers: Life [...] documented as of this encounter Care Teams Dye Range Tender Relationship Specialty [place] [address] [place] [address] PCP - General Family Practice 07/11/14 [place] [address] [place] [address] Assigned PCP 12/16/11 Christy Campuzano PA-C [address] [place] [address] Referring Physician Family Medicine 04/22/20 [place] [address] [place] [address] Resident Pulmonary Disease 04/22/20 Estella Hassan, [facility]3 [place] [address] Pharmacist Pharmacist 05/26/20 Elaina Moreon MD [address] [place] [address] Cardiovascular & Thoracic Surgery 08/06/20 John Webb MD [address] [place] 092975 Cardiovascular Disease 08/25/21 John Webb MD [address] [place] 617475 Cardiovascular Disease 08/25/21 Estella Hassan, [facility] [address] [place] [address] Assigned MTM Pharmacist 12/09/21 Lindsay Carey OD [address] [facility] [place] [address] Ophthalmology 01/29/22 Richard Kam MD [address] [place] [address] [id number] Assigned Musculoskeletal Provider 08/14/22 [place] [address] [address] [facility] [place] 28[address]67 Assigned Neuroscience Provider 01/01/23 Rosemarie Mcdowell, RN Pocket Machine Operator Diabetes Education 03/17/23 Ravi Brownlee MD [address] [place] [address] Assigned Heart and Vascular Provider 09/04/23 01/03/24 Mitra Kendall, TANKER SERVICEMAN Lead Novelty Twister Tender Primary Care - CC 12/12/23 documented as of this encounter
--- OUTSIDE RECORDS SUMMARY | 2024-01-31 20:04 | XMS_ITS | Encounter Summary ---
Author Organization [facility] Address [address] [place] [address] Care Team Providers Care Environmental Technology Professor Name Role Phone Va Glez MD Primary Care Provider Va Glez MD Unavailable Christy Campuzano PA-C Unavailable [phone] Hans Cannon MD Unavailable [phone] Estella Hassan [facility] Unavailable [phone] Josh Cordero MD, Madhuri Unavailable [phone] John Webb MD Unavailable [phone] John Webb MD Unavailable Estella Hassan [facility] Unavailable Lindsay Carey OD Unavailable Richard Kam MD Unavailable Gaby Vila DO Unavailable [phone] Rosemarie Mcdowell RN Unavailable [phone] Ravi Brownlee MD Unavailable [phone] Mitra Kendall EMS COORDINATOR Unavailable [phone] Encounter Details Date Type Department Care Team (Latest Contact Info) Description 12/21/2023 Travel Social History Tobacco Use Types Packs/Day Years Used Date Smoking Tobacco: Former Cigarettes Q uit: 12/03/1983 Passive Smoke Exposure: Past Smokeless Tobacco: Never Alcohol Use Standard Drinks/Week Comments Not Currently 0 (1 standard drink = 0.6 oz pur e alcohol) occ Social Connection and Isolat ion Panel [NHANES] Answer Date Recorded In a typical week, how many times do you talk on the phone with family, friends, or neighbors? Three times a week 10/20/2022 How often do you get togethe r with friends or relatives? Twice a week 10/20/2022 How often do you attend [facility] or congregation services? More than 4 times per year 10/20/2022 Do you belong to any clubs o r organizations such as sabianist groups, unions, fraternal or athletic groups, or school groups? Patient declined 10/20/2022 Attends Club or Organization Meetings Not on heena e 10/20/2022 Are you , , di vorced, , never , or living with a partner? 10/20/2022 AUDIT-C Answer Date Recorded Q1: How often [...] 10/20/2022 PHQ-2 Answer Date Recorded PHQ-2 Score 1 10/13/2023 [facility] of Occupat ional Health - Occupational Stress Questionnaire Answer Date Recorded Do you feel stress - tense, restless, nervous, or anxious, or unable to sleep at night because your mind is troubled all the time - these days? To some extent 10/20/2022 Exercise Vital Sign Answer Date Recorde d On average, how many days pe r week do you engage in moderate to strenuous exercise (like a brisk walk)? 2 days 10/20/2022 On average, how many minutes do you engage in exercise at this level? 10 min 10/20/2022 Adolescent Education Answer Date Record ed Getting School Help Needed Not on file 12/07 Food Insecurity Answer Date Recorded Within the past 12 months, d id you worry that your food would run out before you got money to buy more? No 0 03/18/2023 Within the past 12 months, d id the food you bought just not last and you didn t have money to get more? Patient declined 03/18/2023 Housing Stability Answer Date Recorded Do you have housing? (Denita shaffer is defined as stable permanent housing and does not include staying ouside in a car, in a tent, in an abandoned building, in an overnight prison, 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.) Yes 03/18/2023 Are you worried about losing your housing? No 03/18/2023 Financial Resource Strain Answer Date R ecorded Within the past 12 months, h ave you or your family members you live with been unable to get utilities (heat, electricity) when it was really needed? No 03/18/2023 Transportation Needs Answer Date Record ed Within the past 12 months, h as lack of transportation kept you from medical appointments, getting your medicines, non-medical meetings or appointments, work, or from getting things that you need? No 03/18/2023 Interpersonal Safety Answer Date Record ed Do [...] on file Legal 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 CUSHION SEWER Gender Identity Not on file Sexual Orientation Not on file Occupation Industry Job Start Date Job End Date Not on file Not on file Not on file Not on file documented as of this encounter Plan of Treatment Upcoming Encounters Date Type Department Care Team (Late st Contact Info) Description 02/01/2024 3:00 PM CUSHION SEWER [facility] [address] [facility] [place] [address] Manuel Ahn, [address] [facility] [place] [address] 02/02/2024 1:30 PM CUSHION SEWER Therapy Visit [facility] [address] [place] [address], [place] [address] Alicja Roldan, OT 909 [place] [address] 02/05/2024 8:00 PM CUSHION SEWER Therapy Visit [facility] [place] 6[address] [facility] 103 [place] [phone] 02/13/2024 4:30 PM CUSHION SEWER Oncology Visit [facility] 909 [place] [phone] Marian Agustin APRN [facility] [address] [facility] 207 [place] [address] 03/01/2024 7:00 AM CUSHION SEWER Office Visit [facility] [address] [place] [phone] Estelal Hassan, [facility] 3033 [place] [address] 03/23/2024 2:00 PM CUSHION SEWER Office Visit [facility] [address] [place] [phone] Lizet aMnn PA-C 717 [place] [address] 03/29/2024 3:30 PM CUSHION SEWER Office Visit [facility] 2945 [facility] [address] [place] [address] Hakeem Chacko MBBS 2945 [place] [address] 05/03/2024 3:00 PM CUSHION SEWER Office Visit [facility] [address] [place] [phone] Gaurav Valenzuela, FIREWALL ADMINISTRATOR RESTAURANT OPERATIONS MANAGER [address] [place] [address] [place] [address] 05/22/2024 10:30 AM CDT Office Visit [facility] [address] [place] [phone] Estella Hassan, [facility] [address] [place] [address] 05/22/2024 11:30 AM CDT Office Visit [facility] [address] [place] [phone] [place] [address] [place], [place] [phone] documented as of this encounter Goals Goal [...] for health insurance by looking in to [employer] and talking with a FRW. Completed 3. I will look for a new job and will access resources that the [employer] offers. . Sarted new job 4. [...] Due or Overdue 20%(01/27/20 24 7:55 AM CUSHION SEWER) No Mitra Kendall LSW Note: Barriers: Life [...] documented as of this encounter Care Teams Environmental Technology Professor Relationship Specialty [place] [address] [place] [address] PCP - General Family Practice 07/11/14 [place] [address] [place] [address] Assigned PCP 12/16/11 Christy Campuzano PA-C [address] [place] [address] Referring Physician Family Medicine 04/22/20 [place] [address] [place] [address] 064172 Resident Pulmonary Disease 04/22/20 Estella Hassan, [facility] 3033 [place], [place] 934536 Pharmacist Pharmacist 05/26/20 Elaina Moreno MD [address] [place] [address] 763885 Cardiovascular & Thoracic Surgery 08/06/20 John Webb MD [address] [place] 152495 Cardiovascular Disease 08/25/21 John Webb MD [address] [place] 764885 Cardiovascular Disease 08/25/21 Estella Hassan, [facility] [address] [place] [address] Assigned MTM Pharmacist 12/09/21 Lindsay Carey OD [address] [place] [address] [place] [address] Ophthalmology 01/29/22 Richard Kam MD [address] [place] [address] Assigned Musculoskeletal Provider 08/14/22 [place] [address] [place], [facility] 300 [place] [address] Assigned Neuroscience Provider 01/01/23 Rosemarie Mcdowell, RN Paper Core Machine Operator Diabetes Education 03/17/23 Ravi Brownlee MD [address] [place] [address] 276 [place], [place] 148885 Assigned Heart and Vascular Provider 09/04/23 01/03/24 Mitra Kendall, EMS COORDINATOR Lead Platform Beater Primary Care - CC 12/12/23 documented as of this encounter
--- OUTSIDE RECORDS SUMMARY | 2024-01-31 20:04 | XMS_ITS | Encounter Summary ---
Author Organization [place] Address [address] [place] [address] Care Team Providers Care Family Life Counselor Name Role Phone Va Glez MD Primary Care Provider Va Glez MD Unavailable Christy CampuzanoC Unavailable Hans Cannon MD Unavailable Estella Hassan [facility] Unavailable Josh Cordero MD, Madhuri Unavailable [phone] John Webb MD Unavailable John Webb MD Unavailable [phone] Estella Hassan [facility] Unavailable [phone] Lindsay Carey OD Unavailable Richard Kam MD Unavailable Gaby Vila DO Unavailable Rosemarie Mcdowell RN Unavailable Ravi Brownlee MD Unavailable [phone] Mitra Kendall TESTER ARMATURE OR FIELDS Unavailable Lizet MannC Unavailable Ravi Brownlee MD Unavailable Nav Hughes MD Unavailable [phone] Manuel Ahn OD Unavailable Kye Arabella MA Unavailable [phone] Thalia Charles [facility] Unavailable Unavailable Encounter Details Date Type Department Care Team (Late st Contact Info) Description 12/29/2023 MyC Medical Advice [facility] [address] [place] [phone] Elaina Moreno MD [address] [place] [address] Social History Tobacco Use Types Packs/Day [...] Answer Date Recorded PHQ-2 Score 2 12/23/2023 [facility] [place] of Occupat ional Health - Occupational Stress [...] on file Legal 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 VENETIAN BLIND INSTALLER Gender Identity Not on file Sexual Orientation Not on file Occupation Industry Job Start Date Job End Date Not on file Not on file Not on file Not on file documented as of this encounter Plan of Treatment Upcoming Encounters Date Type Department Care Team (Late st Contact Info) Description 02/01/2024 3:00 PM VENETIAN BLIND INSTALLER Office Visit [facility] 6[address] [place] [phone] Manuel Ahn 6341 [place] [address] 02/02/2024 1:30 PM VENETIAN BLIND INSTALLER Therapy Visit [facility] [address] [facility] [address] [place] [phone] Alicja Roldan, OT 909 [place] [address] 02/05/2024 8:00 PM VENETIAN BLIND INSTALLER Therapy Visit [facility] [place] 6363 [facility] 103 [place] [phone] 02/13/2024 4:30 PM VENETIAN BLIND INSTALLER Oncology Visit [facility] 909 [place] [phone] Marian Agustin, SHEAR SETTER CLOTH COLORS EXAMINER 420 [facility] 207 [place], [place] [address] 03/01/2024 7:00 AM VENETIAN BLIND INSTALLER Office Visit [facility] [address] [place] [phone] Estella Hassan, [facility] [address] [place] [address] 03/23/2024 2:00 PM VENETIAN BLIND INSTALLER Office Visit [facility] [address] [address] [place] [phone] Lizet Mann PA-C 717 [facility] [place] [address] 03/29/2024 3:30 PM VENETIAN BLIND INSTALLER Office Visit [facility] 2945 [facility] 200 [place] [address] Hakeem Chacko MBBS 2945 [place] [address] 05/03/2024 3:00 PM VENETIAN BLIND INSTALLER Office Visit [address] [phone] Gaurav Valenzuela, SHEAR SETTER [facility] [address] [place], [place] [address]E [address] [address] 05/22/2024 10:30 AM CDT Office Visit [address] [phone] Estella Hassan, [facility] [address] [place] [address] 05/22/2024 11:30 AM CDT Office Visit [facility] [address] [place] [address] [place] [address] [place] [address] documented as of this encounter Goals Goal Patient Goal Type Associated Problems Recent Progress Patient-Stated? Author Health Maintenance Care Plan HP GENERAL PROBLEM 100%( 023 10:17 AM CDT) No Mitra Knedall, TESTER ARMATURE OR FIELDS Note: Update on 05/25/22 Barriers: Currently without [...] 023 10:17 AM CDT) No Mitra Kendall, TESTER ARMATURE OR FIELDS Note: Updated on 05/25/22 Barriers: Currently not working.Doesn't have insurance Strengths: Getting SSD. Patient expressed understanding of goal: Action steps to achieve this goal: 1. I will apply for unemployment. Decided not to 2. I will explore my options for health insurance by looking in to [employer] and talking with a FRW. Completed 3. I will look for a new job and will access resources that the [employer] offers. . Sarted new job 4. [...] Due or Overdue 20%(01/27/20 24 7:55 AM VENETIAN BLIND INSTALLER) No Mitra Kendall LSW Note: Barriers: Life [...] accurate information and submit it to the [facility]. 3. I will update CCC [...] documented as of this encounter Care Teams Family Life Counselor Relationship Specialty [place] [address] [place] [address] PCP - General Family Practice 07/11/14 [place] [address] [place] [address] Assigned PCP 12/16/11 Christy Campuzano PA-C [address] [place] [address] Referring Physician Family Medicine 04/22/20 Hans Cannon MD [address] [place] [address] Resident Pulmonary Disease 04/22/20 Estella Hassan, [facility] [place] [address] Pharmacist Pharmacist 05/26/20 Elaina Moreno MD [address] [place] [address] Cardiovascular & Thoracic Surgery 08/06/20 John Webb MD [address] [address] Cardiovascular Disease 08/25/21 John Webb MD [address] [address] Cardiovascular Disease 08/25/21 Estella Hassan, [facility] [place] [address] Assigned MTM Pharmacist 12/09/21 Lindsay Carey OD 3305 [facility] [address] [address] Ophthalmology 01/29/22 Richard Kam MD [address] [place] [address] 887215 Assigned Musculoskeletal Provider 08/14/22 [place] [address] 575247 Assigned Neuroscience Provider 01/01/23 Rosemarie Mcdowell RN Back Order Clerk Diabetes Education 03/17/23 Ravi Brownlee MD [address] [place] [address] 501495 Assigned Heart and Vascular Provider 09/04/23 01/03/24 Mitra Kendall, TESTER ARMATURE OR FIELDS Lead Farmworker Machine Primary Care - CC 12/12/23 Lizet Mann PA-C [address] [place] [address] Assigned Cancer Care Provider 01/04/24 Ravi Brownlee MD [address] [place] [address] Assigned Pulmonology Provider 01/04/24 Nav Hughes MD [address] [place] [address] Assigned Heart and Vascular Provider 01/04/24 Manuel Ahn, ARA [address] [place] [address] Robotics Technician 01/05/24 Arabella Fishman MA Financial Resource Worker 01/06/24 Thalia Charles [facility] Pharmacist Pharmacy 01/26/24 documented as of this encounter
--- OUTSIDE RECORDS SUMMARY | 2024-01-31 20:05 | XMS_ITS | Encounter Summary ---
Author Organization [place] Address [address] [place] [address] Care Team Providers Care Reducing Machine Operator Name Role Phone Va Glez MD Primary Care Provider Va Glez MD Unavailable Christy Campuzano PA-C Unavailable Hans Cannon MD Unavailable [phone] Burt Jovel MD Unavailable [phone] Estella Hassan [facility] Unavailable Josh Cordero MD, Madhuri Unavailable [phone] John Webb MD Unavailable John Webb MD Unavailable Estella Hassan [facility] Unavailable Lindsay Carey OD Unavailable Richard Kam MD Unavailable Gaby Vila DO Unavailable Rosemarie Mcdowell RN Unavailable [phone] Ravi Brownlee MD Unavailable [phone] Reason for Visit * Reason Onset Date Comments Patient Request 11/25/2023 [facility] Encounter Details Date Type Department Care Team (Late st Contact Info) Description 11/25/[address] [phone] Kerry Bernal RN Patient Request (MTM ) Social History Tobacco Use Types Packs/Day Years Used Date Smoking Tobacco: Former Cigarettes Q uit: 12/03/1983 Smokeless Tobacco: Never Alcohol Use Standard Drinks/Week [...] week 10/20/2022 How often do you attend chur or sikh services? More than 4 times per year 10/20/2022 Do you belong to any clubs o r organizations such as voodoo groups, unions, fraBreaker or athletic groups, or school groups? Patient [...] Answer Date Recorded PHQ-2 Score 1 10/13/2023 [facility] of Occupat ional Health - Occupational [...] 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, 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.) Yes 03/18/2023 Are you worried [...] on file Legal 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 KNAPSACK SPRAYER Gender Identity Not on file Sexual Orientation Not on file Occupation Industry Job Start Date Job End Date Not on file Not on file Not on file Not on file documented as of this encounter Miscellaneous Notes * Telephone Encounter - Kerry Bernal RN - 11/28/2023 11:15 AM CDT Immunization up to date in epic per [facility] comparison KerryJyothi Feldman Nurse [facility] * Telephone Encounter - Estella Hassan RPH - 11/25/2023 3:18 PM CDT Spoke to patient - he will call Juicejulianne Allene for replacement sensors, . Otherwise I informed him because he has financial concerns I would prefer he not spend his money on CGM sensors and rather use that money for Ozempic and his inhalers. Also I dropped his vaccine record off for you? He said you were requesting them? Estella Hassan, PharmD, [facility] Med[facility] Therapy Management Provider, [facility] [phone] * Telephone Encounter - Kerry Bernal RN - 11/25/2023 2:42 PM CDT Estella [facility] Patient's freestyle Levar that you put on fell off when he walked out to the parking lot He does not have any additional at home Please advise how you would like to proceed Thank you Kerry Bernal Registered Nurse [facility] documented in this encounter Plan of Treatment Upcoming Encounters Date Type Department Care Team (Late st Contact Info) Description 02/01/2024 3:00 PM KNAPSACK SPRAYER Office Visit [address] [phone] Manuel Ahn, [address]241 [place] [address] 02/02/2024 1:30 PM KNAPSACK SPRAYER Therapy Visit [facility] [address] [facility] [address] [place] [address] Alicja Roldan, OT [address] [place] [address] 02/05/2024 8:00 PM KNAPSACK SPRAYER Therapy Visit [facility] [place] 6363 [facility] 103 [place] [phone] 02/13/2024 4:30 PM KNAPSACK SPRAYER Oncology Visit [facility] 909 [place] [phone] Marian Agustin, [facility] 420 [facility] 207 [place] [address] 03/01/2024 7:00 AM KNAPSACK SPRAYER Office Visit [facility] [address] [place] [phone] Estella Hassan, [facility] 3033 [place] [address] 03/23/2024 2:00 PM KNAPSACK SPRAYER Office Visit [facility] [address] [place] [phone] Lizet Mann PA-C 717 [place] [address] 03/29/2024 3:30 PM KNAPSACK SPRAYER Office Visit [facility] 2945 [facility] [address] [place] [phone] Hakeem Chacko MBBS 2945 [place] [address] 05/03/2024 3:00 PM KNAPSACK SPRAYER Office Visit [facility] 606 [address], [place] [phone] Gaurav Valenzuela, POULTRY PROCESSOR ADMIN DIR [address] [place] [address] 05/22/2024 10:30 AM CDT Office Visit [facility] [address] [place] [address] Estella Hassan, [facility] 3033 [place] [address] 05/22/2024 11:30 AM CDT Office Visit [facility] [address] [place] [address] [place] [address] [place] [address] documented as of this encounter [...] for health insurance by looking in to [employer] and talking with a FRW. Completed 3. I will look for a new job and will access resources that the [employer] center offers. . Sarted new job 4. Continue to use Single Care to reduce the cost of my prescriptions. Create an action plan to increase financial stability Care Plan Patient expresses financial resource strain No Josefina aPtel Establish Regular Follow-Ups with PCP Care Plan [...] Optimize Self-Care Behaviors No Rosemarie Mcdowell RN documented as of this encounter Visit Diagnoses [...] cation Needed to Optimize Self-Care Behaviors 04/28/2023 Assessment Noted Time PHQ-9 Depression Total Score: 4 10/13/19 24 3:39 PM CDT documented as of this encounter Care Teams Reducing Machine Operator Relationship Specialty [place] [address] [place] [address] PCP - General Family Practice 07/11/14 [place] [address] [place] [address] Assigned PCP 12/16/11 Christy Campuzano PA-C [address] [place] [address] 279692 Referring Physician Family Medicine 04/22/20 Hans Cannon MD [address] [place] [address] 416172 Resident Pulmonary Disease 04/22/20 uBrt Jovel MD [address] [place] [address] 099562 Internal Medicine 05/08/20 12/13/23 Estella Hassan, [facility] 30[address] [place] [address] Pharmacist Pharmacist 05/26/20 Elaina Moreno MD [address] [place] [address] Cardiovascular & Thoracic Surgery 08/06/20 John Webb MD [address] [address] Cardiovascular Disease 08/25/21 John Webb MD [address] [address] Cardiovascular Disease 08/25/21 Estella Hassan, [facility] 30[address] [place] [address] Assigned MTM Pharmacist 12/09/21 Lindsay Carey OD [address] [place] [address] [place] [address] Ophthalmology 01/29/22 Richard Kam MD 500 [place], [place] 281665 Assigned Musculoskeletal Provider 08/14/22 [place] [address] 608477 Assigned Neuroscience Provider 01/01/23 Rosemarie Mcdowell, RN Bio Medical Technician Diabetes Education 03/17/23 Ravi Brownlee MD [address] [place] [address] 276 [place], [place] 042445 Assigned Heart and Vascular Provider 09/04/23 01/03/24 documented as of this encounter
--- OUTSIDE RECORDS SUMMARY | 2024-01-31 20:05 | XMS_ITS | Encounter Summary ---
Author Organization [place] Address [address] [place] [address] Care Team Providers Care Foundation Stage Teacher Name Role Phone Va Glez MD Primary Care Provider Va Glez MD Unavailable Christy Campuzano PA-C Unavailable [phone] Hans Cannon MD Unavailable Estella Hassan [facility] Unavailable Josh Cordero MD, Madhuri Unavailable [phone] John Webb MD Unavailable [phone] John Webb MD Unavailable Estella Hassan [facility] Unavailable Lindsay Carey OD Unavailable [phone] Richard Kam MD Unavailable Gaby Vila DO Unavailable [phone] Rosemarie Mcdowell RN Unavailable Ravi Brownlee MD Unavailable [phone] Mitra Kendall OFFICE BOOKKEEPER Unavailable [phone] Reason for Visit * Reason Onset Date Comments Appointment 12/16/2023 Encounter Details Date Type Department Care Team (Late st Contact Info) Description 12/16/2023 Telephone [facility] [address] [phone] Ravi Brownlee MD [address] [place] [address] 276 [place] [address] Appointment Social History Tobacco Use Types Packs/Day Years [...] week 10/20/2022 How often do you attend [facility] or yazdanism services? More than 4 times per year 10/20/2022 Do you belong to any clubs o r organizations such as restorationist groups, unions, fraternal or athletic groups, or [...] Answer Date Recorded PHQ-2 Score 1 10/13/2023 [facility] [place] of Occupat ional Health - Occupational Stress [...] in an overnight half-way, 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.) Yes 03/18/2023 Are you worried [...] on file Legal 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 TRAPEZE ARTIST Gender Identity Not on file Sexual Orientation Not on file Occupation Industry Job Start Date Job End Date Not on file Not on file Not on file Not on file documented as of this encounter Miscellaneous Notes * Telephone Encounter - Dino Ponce RN - 12/16/2023 1:34 PM CDT Returned call to patient. Provided update that no pulmonary providers are on site today therefore no appointment can be completed. RN was able to schedule patient with Lizet Mann PA-C on 12/21/23 at [facility]. Patient accepted appointment. No further action required. Dino Ponce, RN * Telephone Encounter - Karyn Monroe - 12/16/2023 1:14 PM CDT [facility] Phone Message May a detailed message be left on voicemail: yes Reason for Call: Other: . Patient states he received a call that his appt with Dr. Brownlee today, 12/16/2023 was canceled. Patient states the nurses were going to call him back to help reschedule with another provider for today or sometimes soon. Robotics Systems Engineer did not see documentation. Patient states he would like to be seen today still. Patient is wanting to get a call back to get help rescheduling. Please advise. Action Taken: Message routed to: [facility] Lung Travel Screening: Not Applicable Date of Service: documented in this encounter Plan of Treatment Upcoming Encounters Date Type Department Care Team (Late st Contact Info) Description 02/01/2024 3:00 PM TRAPEZE ARTIST Office Visit [address] [phone] Manuel Ahn, [address] [place] [address] 02/02/2024 1:30 PM TRAPEZE ARTIST Therapy Visit [facility] [place] [facility] [place] [address] [facility] [address] [place] [phone] Alicja Roldan, OT 909 [place], [place] 68[address] 02/05/2024 8:00 PM TRAPEZE ARTIST Therapy Visit [facility] Sleep [place] [address] [facility] 103 [place] [address] 02/13/2024 4:30 PM TRAPEZE ARTIST [facility]cology [facility] 909 [place] [phone] Marian Agustin APRN [facility] 420 [facility] 207 [place] [address] 03/01/2024 7:00 AM TRAPEZE ARTIST Office Visit [facility] [address] [place] [phone] Estella Hassan, [facility] 3033 [place] [address] 03/23/2024 2:00 PM TRAPEZE ARTIST Office Visit [facility] [address] [place] [phone] Lizet Mann PA-C 717 [facility] [place] [address] 03/29/2024 3:30 PM TRAPEZE ARTIST Office Visit [facility] 2945 [facility] [address] [place] [phone] Hakeem Chacko MBBS 2945 [place] [address] 05/03/2024 3:00 PM TRAPEZE ARTIST Office Visit [facility] Sleep [facility] [address] [place] [phone] Gaurav Valenzuela, CATALOGUE AND SPECIAL PRODUCTS MANAGER [facility] 606 [facility] [address] [address] 05/22/2024 10:30 AM CDT Office Visit [facility] [address] [place] [phone] Estella Hassan, [facility] 30[address] [place] [address] 05/22/2024 11:30 AM CDT Office Visit [facility] [address] [place] [phone] [place] [address] [place], [place] 428[address] documented as of this encounter Goals Goal [...] for health insurance by looking in to [employer] and talking with a FRW. Completed 3. I will look for a new job and will access resources that the [employer] center offers. . Sarted new job 4. [...] Due or Overdue 20%(01/27/20 24 7:55 AM TRAPEZE ARTIST) No Mitra Kendall LSW Note: Barriers: Life [...] documented as of this encounter Care Teams Foundation Stage Teacher Relationship Specialty [place] [address] [place] [address] PCP - General Family Practice 07/11/14 [place] [address] [place] [address] Assigned PCP 12/16/11 Christy Campuzano PA-C [address] [place] [address] 015122 Referring Physician Family Medicine 04/22/20 Hans Cannon MD [address] [place] [address] Resident Pulmonary Disease 04/22/20 Estella Hassan, [facility] 30[address] [facility] [address] Pharmacist Pharmacist 05/26/20 Elaina Moreno MD 909 [place], [place] 533785 Cardiovascular & Thoracic Surgery 08/06/20 John Webb MD [address] [place] [place] 204455 Cardiovascular Disease 08/25/21 John Webb MD [address] [place] 928865 Cardiovascular Disease 08/25/21 Estella Hassan, [facility] 3033 [place] [address] Assigned MTM Pharmacist 12/09/21 Lindsay Carey OD [address] [facility] [place] [address] Ophthalmology 01/29/22 Richard Kam MD [address] [place] [address] Assigned Musculoskeletal Provider 08/14/22 [place] [address] [address] Assigned Neuroscience Provider 01/01/23 Rosemarie Mcdowell RN [employer]angel[employer] Conservation Laborer Diabetes Education 03/17/23 Ravi Brownlee MD [address] [place] [address] Assigned Heart and Vascular Provider 09/04/23 01/03/24 Mitra Kendall, OFFICE BOOKKEEPER Lead Credentialing Specialist Primary Care - CC 12/12/23 documented as of this encounter
--- OUTSIDE RECORDS SUMMARY | 2024-01-31 20:05 | XMS_ITS | Encounter Summary ---
Author Organization [place] Address [address] [place] [address] Care Team Providers Care Wafer Production Worker Name Role Phone Va Glez MD Primary Care Provider [phone] Va Glez MD Unavailable Christy Campuzano PA-C Unavailable [phone] Hans Cannon MD Unavailable Jim Hassan [facility] Unavailable [phone] Josh Cordero MD, Madhuri Unavailable [phone] John Webb MD Unavailable John Webb MD Unavailable [phone] Jim Hassan [facility] Unavailable [phone] Lindsay Carey OD Unavailable Richard Kam MD Unavailable Gaby Vila DO Unavailable [phone] Rosemarie Mcdowell RN Unavailable [phone] Ravi Brownlee MD Unavailable [phone] Mitra Kendall BARREL DRILLER Unavailable [phone] Reason for Referral * Medication Prior Authorization - Closed Specialty Diagnoses / Procedures Referred By Mireille gonzalez Referred To Contact Diagnoses SOB (shortness of breath) Moderate persistent asthma without complication Jim Morales MD [address] [facility] [place] [place] [address] Phone: tel: fax: Referral ID Status Reason Start Date Expiration Date Visits Re quested Visits Authorized [id number] Closed 1 1 Reason for Visit * Reason Comments Nausea Diarrhea Encounter Details Date Type Department Care Team (Late st Contact Info) Description 12/15/2023 1:40 PM CDT Office Visit [facility] [address] [place] [address] [place] [phone] Jim Morales MD [address] [facility] [place] [place] [address] Diarrhea, unspecified type (Primary Dx); SOB (shortness of breath); Moderate persistent asthma without complication; Nausea Social History Tobacco Use Types Packs/Day Years [...] 10/20/2022 How often do you attend chur ch or gnosticist services? More than 4 times per year 10/20/2022 Do you belong to any clubs o r organizations such as restoration groups, unions, fraternal or athletic groups, or [...] Score 1 10/13/2023 [facility] - Occupational Stress Questionnaire Answer Date Recorded [...] in an overnight fdc, 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.) Yes 03/18/2023 Are you worried [...] on file Legal 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 BOX CLOSING MACHINE OPERATOR Gender Identity Not on file Sexual Orientation Not on file Occupation Industry Job Start Date Job End Date Not on file Not on file Not on file Not on file documented as of this encounter Last Filed Vital Signs Vital Sign Reading Time Taken Comments Blood Pressure 123/83 12/15/2023 1:31 PM CDT Pulse 85 12/15/2023 1:31 PM CDT Temperature 36.9 C (98.5 F) 12/15/2023 1:31 PM CDT Respiratory Rate 18 12/15/2023 1:31 PM CDT Oxygen Saturation 95% 12/15/2023 1:31 PM CDT Inhaled Oxygen Concentration - - Weight 133.8 kg (295 lb) 12/15/2023 1:31 PM CDT Height 172 cm (5' 7.72) 12/15/2023 1:31 PM CDT Body Mass Index 45.23 12/15/2023 1:31 PM CDT documented in this encounter Progress Notes * Jim Morales MD - 12/15/2023 1:40 PM CDT Assessment & Plan (R19.7) Diarrhea, unspecified type (primary encounter diagnosis) Comment: Acute, uncontrolled. Likely viral in nature. Will do a stool sample test. Will treat if necessary however likely will resolve on its own Plan: Enteric Bacteria and Virus Panel by NAJMA Stool (R06.02) SOB (shortness of breath) Comment: Chronic, stable. Refills sent Plan: albuterol (PROAIR HFA/PROVENTIL HFA/VENTOLIN HFA) 108 (90 Base) MCG/ACT inhaler, ipratropium - albuterol 0.5 mg/2.5 mg/3 mL (DUONEB) 0.5-2.5 (3) MG/3ML neb solution (J45.40) Moderate persistent asthma without complication Comment: Chronic, stable Plan: albuterol (PROAIR HFA/PROVENTIL HFA/VENTOLIN HFA) 108 (90 Base) MCG/ACT inhaler, ipratropium - albuterol 0.5 mg/2.5 mg/3 mL (DUONEB) 0.5-2.5 (3) MG/3ML neb solution (R11.0) Nausea Comment: Acute, uncontrolled. Medication refilled Plan: ondansetron (ZOFRAN) 4 MG tablet Dictation Disclaimer: Some of this Note has been completed with voice- recognition dictation software. Although errors are generally corrected real- time, there is the potential for a rare error to be present in the completed chart. BMI Estimated body mass index is 45.23 kg/m?? as calculated from the following: Height as of this encounter: 1.72 m (5' 7.72). Weight as of this encounter: 133.8 kg (295 lb). Weight management plan: Discussed healthy diet and exercise guidelines Roseline Green is a 63 year old, presenting for the following health issues: Nausea and Diarrhea History of Present Illness Reason for visit: Right ear pressure He is taking medications regularly. Pt reports that he began to experience nausea and diarrhea this morning. He denies any changes in food, travel, new medications in the last 24 hours. He denies any fever or vomiting. He endorses a history of gallbladder issues in which he is being worked up for Pt reports not picking up zofran medication secondary to cost and states he would like it sent to [facility]. He is also requesting refills on his asthma medication Nausea and Diarrhea that started this morning. Three episodes of diarrhea since this morning. ROS: 10 point ROS neg other than the symptoms noted above in the HPI. Objective BP 123/83 Pulse 85 Temp 98.5 ??F (36.9 ??C) (Temporal) Resp 18 Ht 1.72 m (5' 7.72) Wt 133.8 kg (295 lb) SpO2 95% BMI 45.23 kg/m?? Body mass index is 45.23 kg/m??. Physical Exam GENERAL: healthy, alert and no distress EYES: Eyes grossly normal to inspection, PERRL and conjunctivae and sclerae normal Neck: No visible JVD or lymphadenopathy RESP: symmetrical rise in chest CV: No peripheral edema notable MS: no gross musculoskeletal defects noted SKIN: no suspicious lesions or rashes PSYCH: mentation appears normal, affect normal/bright Signed Electronically by: JIM SEYMOUR MD documented in this encounter Plan of Treatment Upcoming Encounters Date Type Department Care Team (Late st Contact Info) Description 02/01/2024 3:00 PM BOX CLOSING MACHINE OPERATOR Office Visit [facility] [address] [place] [phone] Manuel Ahn, OD [address] [place], [place] [address] 02/02/2024 1:30 PM BOX CLOSING MACHINE OPERATOR Therapy Visit [facility] [address] [facility] [address] [place] [phone] Alicja Roldan, OT [address]09 [place] [address] 02/05/2024 8:00 PM BOX CLOSING MACHINE OPERATOR Therapy Visit [facility] [place] [address] [facility] [address] [place] [phone] 02/13/2024 4:30 PM BOX CLOSING MACHINE OPERATOR Oncology Visit [facility] [address] [place] [phone] Marian Agustin APRN [facility] [address] [facility] [address] [place] [address] 03/01/2024 7:00 AM BOX CLOSING MACHINE OPERATOR Office Visit [facility] [address] [place] [phone] Jim Hassan, [facility] [address] [place] [address] 03/23/2024 2:00 PM BOX CLOSING MACHINE OPERATOR Office Visit [facility] [address] [place] [phone] Lizet Mann PA-C 717 [place] [address] 03/29/2024 3:30 PM BOX CLOSING MACHINE OPERATOR Office Visit [facility] [address] [facility] 200 [place] [phone] Hakeem Chacko MBBS [address]45 [place] [address] 05/03/2024 3:00 PM BOX CLOSING MACHINE OPERATOR Office Visit [facility] [address] [place] [phone] Gaurav Valenzuela, RESIDENTIAL ELECTRICIAN [facility] [address] [place] [address] 05/22/2024 10:30 AM CDT Office Visit [address] [phone] [facility] [address] [place] [address] 05/22/2024 11:30 AM CDT Office Visit [address] [phone] [place] Glez [place] [address] [place] [address] [phone] Scheduled Orders Name Type Priority Associated Diagnoses Orde r Schedule Enteric Bacteria and Virus Panel by NAJMA Stool Microbiology Routine Diarrhea, unspecified type Expected: 12/15/2023 (Approximate), Expires: 12/14/2024 documented as of this encounter Goals Goal [...] for health insurance by looking in to [employer] and talking with a FRW. Completed 3. I will look for a new job and will access resources that the [employer] offers. . Sarted new job 4. Continue [...] Education Needed to Optimize Self-Care Behaviors No July, Rosemarie A, RN Taking Medication - patient is consistently [...] as of this encounter Visit Diagnoses Diagnosis Diarrhea, unspecified type- Primary SOB (shortness of breath) Shortness of breath Moderate persistent asthma without complication Unspecified asthma Nausea Nausea alone documented in this encounter [...] documented as of this encounter Care Teams Wafer Production Worker Relationship Specialty [place] [address] [place] [address] PCP - General Family Practice 07/11/14 [place] [address] [place] [address] Assigned PCP 12/16/11 Christy Campuzano PA-C [address] [place] [address] [id number] Referring Physician Family Medicine 04/22/20 Hans Cannon MD [address] [place] [address] Resident Pulmonary Disease 04/22/20 Jim Hassan, [facility] [address] [place] [address] Pharmacist Pharmacist 05/26/20 Elaina Moreno MD [address] [place] [address] Cardiovascular & Thoracic Surgery 08/06/20 John Webb MD [address] [place] [address] Cardiovascular Disease 08/25/21 John Webb MD [address] [place] [address] Cardiovascular Disease 08/25/21 Jim Hassan, [facility] [address] [place] [address] [id number] Assigned MTM Pharmacist 12/09/21 Lindsay Carey OD [address] [place] [address] [place] [address] Ophthalmology 01/29/22 Richard Kam MD [address] [place], [place] [phone] Assigned Musculoskeletal Provider 08/14/22 [place] [address] [facility], [address] [address] Assigned Neuroscience Provider 01/01/23 Rosemarie Mcdowell, RN Director Of Sales And Marketing Diabetes Education 03/17/23 Ravi Brownlee MD [address] [place] [address] [id number] Assigned Heart and Vascular Provider 09/04/23 01/03/24 Mitra Kendall, BARREL DRILLER Lead Folding Machine Operator Primary Care - CC 12/12/23 documented as of this encounter
--- OUTSIDE RECORDS SUMMARY | 2024-01-31 20:05 | XMS_ITS | Encounter Summary ---
Author Organization [place] Address [address] [place] [address] Care Team Providers Care Anaesthesiologist Name Role Phone Va Glez MD Primary Care Provider [phone] Va Glez MD Unavailable Christy Campuzano PA-C Unavailable [phone] Hans Cannon MD Unavailable [phone] Estella Hassan [facility] Unavailable Josh Cordero MD, Madhuri Unavailable [phone] John Webb MD Unavailable John Webb MD Unavailable [phone] Estella Hassan [facility] Unavailable [phone] Lindsay Carey OD Unavailable [phone] Richard Kam MD Unavailable Gaby Vila DO Unavailable [phone] Rosemarie Mcdowell RN Unavailable [phone] Ravi Brownlee MD Unavailable [phone] Mitra Kendall HUMAN RESOURCES OPERATIONS DIRECTOR Unavailable [phone] Reason for Visit * Reason Onset Date Comments Patient Request 12/15/2023 Encounter Details Date Type Department Care Team (Late st Contact Info) Description 12/15/[address] [place] [phone] Kerry Bernal RN Patient Request Social History [...] How often do you attend chur or adventist services? More than 4 times per year 10/20/2022 Do you belong to any clubs o r organizations such as yazidism groups, unions, fraternal or athletic groups, or [...] Answer Date Recorded PHQ-2 Score 1 10/13/2023 [facility] - Occupational Stress [...] in an overnight jail, 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.) Yes 03/18/2023 Are you worried [...] on file Legal 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 BITUMASTIC APPLIER Gender Identity Not on file Sexual Orientation Not on file Occupation Industry Job Start Date Job End Date Not on file Not on file Not on file Not on file documented as of this encounter Miscellaneous Notes * Telephone Encounter - Kerry Bernal RN - 12/15/2023 12:07 PM CDT Patient left message on RN IVELISSE asking for return call, did not advise what the concern was but advised it was urgent RN returned call to patient Diarrhea and nausea onset approximately 24 hours ago Patient states he called the scheduling team and was able to get an appt today with a provider in [place], he is leaving work now and waiting for this appt. RN advised to sip on electrolyte drink such as gatorade/powerade - cautioned not to drink a lot at one time as this can upset stomach, but rather drink a sip every 10 minutes to try and prevent dehydration - patient states understanding Patient will call if any further questions/concerns arise Kerry Bernal Registered Nurse [facility] documented in this encounter Plan of Treatment Upcoming Encounters Date Type Department Care Team (Late st Contact Info) Description 02/01/2024 3:00 PM BITUMASTIC APPLIER Office Visit [facility] [address] [place] [phone] Manuel hAn, [address] [address] 02/02/2024 1:30 PM BITUMASTIC APPLIER Therapy Visit [facility] [place] [address] [facility] [address] [place] [phone] Alicja Roldan, OT [address]09 [place] [address] 02/05/2024 8:00 PM BITUMASTIC APPLIER Therapy Visit [facility] [place] [address] [place] [address] 103 [place] [phone] 02/13/2024 4:30 PM BITUMASTIC APPLIER Oncology Visit [facility] 9[address] [place] [phone] Marian Agustin APRN [facility] [address] [facility] [address] [place] [address] 03/01/2024 7:00 AM BITUMASTIC APPLIER Office Visit [facility] [address] [place] [phone] Estella Hassan, [place] [address] [place] [address] 03/23/2024 2:00 PM BITUMASTIC APPLIER Office Visit [facility] [address] [place] [phone] Lizet Mann PA-C [address] [place] [address] 03/29/2024 3:30 PM BITUMASTIC APPLIER Office Visit [facility] [address] [phone] Hakeem Chacko MBBS [address] [place] [address] 05/03/2024 3:00 PM BITUMASTIC APPLIER Office Visit [facility] [address] [phone] Gaurav Valenzuela, PROFESSOR OF GERMAN [address] [address] 05/22/2024 10:30 AM CDT Office Visit [address] [phone] Estella Hassan, [place] [address] [place] [address] 05/22/2024 11:30 AM CDT Office Visit [address] [phone] Va Glez MD [address] [place] [phone] documented as of this encounter Goals Goal [...] for health insurance by looking in to [employer] and talking with a FRW. Completed 3. I will look for a new job and will access resources that the [employer] offers. . Sarted new job 4. [...] to Optimize Self-Care Behaviors Rosemarie Rendon RN documented as of this encounter Visit [...] accurate information and submit it to the [employer]. 3. I will update CCC Team at outreach. HbA1C Not In Goal 04/28/2023 Diabetes Self-Management Edu cation Needed to Optimize Self-Care Behaviors 04/28/2023 Assessment Noted Time PHQ-9 Depression Total Score: 4 10/13/19 24 3:39 PM CDT documented as of this encounter Care Teams Anaesthesiologist Relationship Specialty [place] [address] [place] [address] PCP - General Family Practice 07/11/14 [place] [address] [facility] [place], [place] [phone] Assigned PCP 12/16/11 Christy Campuzano PA-C [address] [place] [address] 350432 Referring Physician Family Medicine 04/22/20 Hans Cannon MD [address] [place] [address] [id number] Resident Pulmonary Disease 04/22/20 Estella Hassan, [facility] [address] [place] [address] [phone] Pharmacist Pharmacist 05/26/20 Elaina Moreno MD [address] [place] [address] [phone] Cardiovascular & Thoracic Surgery 08/06/20 John Webb MD [address] [place] 55[address] Cardiovascular Disease 08/25/21 John Webb MD [address] [place] [place] 478485 Cardiovascular Disease 08/25/21 Estella Hassan, [facility] [address] [place] [address] Assigned MTM Pharmacist 12/09/21 Lindsay Carey OD [address] [place] [address] [place] [address] Ophthalmology 01/29/22 Richard Kam MD 500 [place], [place] 681875 Assigned Musculoskeletal Provider 08/14/22 [place] [address] [facility], [address] [phone] Assigned Neuroscience Provider 01/01/23 Rosemarie Mcdowell, RN Program Paraprofessional Diabetes Education 03/17/23 Ravi Brownlee MD [address] [place] [address] [address] [place], [place] 663875 Assigned Heart and Vascular Provider 09/04/23 01/03/24 Mitra Kendall, HUMAN RESOURCES OPERATIONS DIRECTOR Lead Alfalfa Dehydrator Operator Primary Care - CC 12/12/23 documented as of this encounter
--- OUTSIDE RECORDS SUMMARY | 2024-01-31 20:05 | XMS_ITS | Encounter Summary ---
Author Organization [facility] Address [address] [place] [address] Care Team Providers Care Health Science Specialist Name Role Phone Va Glez MD Primary Care Provider [phone] Va Glez MD Unavailable Christy Campuzano PA-C Unavailable [phone] Hans Cannon MD Unavailable [phone] Estella Hassan [facility] Unavailable Josh Cordero MD, Madhuri Unavailable [phone] John Webb MD Unavailable [phone] John Webb MD Unavailable Estella Hassan [facility] Unavailable Lindsay Carey OD Unavailable [phone] Richard Kam MD Unavailable Gaby Vila DO Unavailable [phone] Rosemarie Mcdowell RN Unavailable [phone] Ravi Brownlee MD Unavailable [phone] Mitra Kendall VP CLINICAL Unavailable [phone] Reason for Visit * Reason Comments Shortness of Breath Encounter Details Date Type Department Care Team (Late st Contact Info) Description 12/18/2023 8:58 AM CDT - 12/18/2023 11:05 AM CDT Emergency [facility] [address] [place] [phone] Aditi Santos MD [facility] [address] [place] [address] Mild intermittent asthma with acute exacerbation Discharge Disposition: Home or Self Care Social History Tobacco Use Types Packs/Day Years [...] week 10/20/2022 How often do you attend [facility] or spiritism services? 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 Gender Identity Not on file Sexual Orientation Not on file Occupation Industry Job Start Date Job End Date Not on file Not on file Not on file Not on file documented as of this encounter Last Filed Vital Signs Vital Sign Reading Time Taken Comments Blood Pressure 132/88 12/18/2023 11:03 AM CDT Pulse 94 12/18/2023 11:03 AM CDT Temperature 36.5 C (97.7 F) 12/18/2023 7:40 AM CDT Respiratory Rate 18 12/18/2023 10:5 5 AM CDT Oxygen Saturation 93% 12/18/2023 11: 03 AM CDT Inhaled Oxygen Concentration - - Weight 133.9 kg (295 lb 3.1 oz) 12/18/2023 7:40 AM CDT Height 175.3 cm (5' 9) 12/18/2023 7:40 AM CDT Body Mass Index 43.59 12/18/2023 7:40 AM CDT documented in this encounter Discharge Instructions * Discharge Instructions* Aditi Santos MD - 12/18/2023 10:31 AM CDT Discharge Instructions Asthma Asthma is a condition causing narrowing and inflammation of the airways that can make it hard to breathe. Asthma can also cause cough, wheezing, noisy breathing and tightness in the chest. Asthma canbe brought on or ???triggered?? by many things, including dust, mold, pollen, cigarette smoke, exercise, stress and infections (like the common cold). Generally, every Emergency Department visit should have a follow-up clinic visit with either a primary or a specialty clinic/provider. Please follow-up as instructed by your emergency provider today. Return to the Emergency Department if: Your breathing gets worse. You need to use your inhaler more often than every 4 hours, or cannot get relief from your inhaler. You are very weak, or feel much more ill. You develop new symptoms, such as chest pain. You cough up blood. You are vomiting (throwing up) enough that you cannot keep fluids or your medicine down. What can I do to help myself? Fill any prescriptions the provider gave you and take them right away--especially antibiotics. Be sure to finish the whole antibiotic prescription. You may be given a prescription for an inhaler, which can help loosen tight air passages. Use this as needed, but not more often than directed. Inhalers work much better when used with a spacer. You may be given a prescription for a steroid to reduce inflammation. Used long- term, these can have some side effects, but for short-term use they are safe. You may notice restlessness or increased appetite (eating more). You may use non-prescription cough or cold medicines. Cough medicines may help, but do not make thecough go away completely. Avoid smoke, because this can make you feel worse. If you smoke, this may be a good time to quit! Consider using nicotine lozenges, gum, or patches to reduce cravings. If you have a fever, Tylenol?? (acetaminophen), Motrin?? (ibuprofen), or Advil?? (ibuprofen), may help bring fever down and may help you feel more comfortable. Be sure to read and follow the package directions, and ask your provider if you have questions. Be sure to get your flu shot each year. For certain age groups, the pneumonia shot can help preventpneumonia. It is important that you follow up with your regular provider, to be sure that you are improving from this spell (an acute asthma exacerbation), and also to do what you can to keep from having trouble again. Sometimes you need long-term medicines to keep your asthma under control. If you were given a prescription for medicine here today, be sure to read all of the information (including the package insert) that comes with your prescription. This will include important information about the medicine, its side effects, and any warnings that you need to know about. The pharmacist who fills the prescription can provide more information and answer questions you may have about the medicine. If you have questions or concerns that the pharmacist cannot address, please call or return to the Emergency Department. Remember that you can always come back to the Emergency Department if you are not able to see your regular provider in the amount of time listed above, if you get any new symptoms, or if there is anything that worries you. documented in this encounter Medications at Time of Discharge acetaminophen (TYLENOL) 500 MG tablet Take 500-1,000 mg by mouth every 6 hours as needed for mild pain. Continuous Glucose Sensor (FREESTYLE ANDRIA 2 SENSOR) MISCIndications:T ype 2 diabetes mellitus with hyperglycemia, without long-term current use of insulin (H) INJECT 1 EACH SUBCUTANEOUSLY EVERY 14 DAYS USE 1 SENSOR EVERY 14 DAYS. USE TO READ BLOOD SUGARS PER HOME ASSESSMENT NURSE'S INSTRUCTIONS. 2 each 5 4 diclofenac (VOLTAREN) 1 % topical gel Apply 2 g topically 4 times daily ipratropium - albuterol 0.5 mg/2.5 mg/3 mL (DUONEB) 0.5-2.5 (3) MG/3ML neb solutionIndicatio ns:SOB (shortness of breath),Moderate persistent asthma without complication TAKE 1 VIAL (3 MLS) BY NEBULIZATION EVERY 6 HOURS NEEDED FOR SHORTNESS OF BREATH / DYSPNEA /WHEEZING 360 mL 3 4 metFORMIN (GLUCOPHAGE XR) 500 MG 24 hr tabletIndications :Type 2 diabetes mellitus without complication, without long-term current use of insulin (H) TAKE 4 TABLETS BY MOUTH DAILY WITH DINNER 360 tablet 1 4 omeprazole (PRILOSEC) [address] capsuleIndication s:Acute gastritis without hemorrhage, unspecified gastritis type TAKE 1 CAPSULE BY MOUTH EVERY DAY 90 capsule 1 4 Semaglutide, 2 MG/DOSE, (OZEMPIC) 8 MG/3ML penIndications:Ty pe 2 diabetes mellitus without complication, without long-term current use of insulin (H) Inject 2 mg subcutaneously every 7 days 9 mL 3 4 sucralfate (CARAFATE) 1 GM tablet Take 1 tablet (1 g) by mouth 4 times daily. 30 tablet 4 albuterol (PROAIR HFA/PROVENTIL HFA/VENTOLIN HFA) 108 (90 Base) MCG/ACT inhalerIndication s:SOB (shortness of breath),Moderate persistent asthma without complication Inhale 2 puffs into the lungs every 6 hours as needed for shortness of breath, wheezing or cough. 18 g 2 4 12/30/19 24 albuterol (PROAIR HFA/PROVENTIL HFA/VENTOLIN HFA) 108 (90 Base) MCG/ACT inhalerIndication s:Moderate persistent asthma without complication Inhale 2 puffs into the lungs every 6 hours 18 g 11 4 12/23/19 24 atorvastatin (LIPITOR) 40 MG tabletIndications :Type 2 diabetes mellitus without complication, without long-term current use of insulin (H) TAKE 1 TABLET BY MOUTH EVERY DAY IN THE EVENING 90 tablet 4 12/23/19 24 blood glucose (NO BRAND SPECIFIED) lancets standardIndicatio ns:Type 2 diabetes mellitus with hyperglycemia, without long-term current use of insulin (H) Use to test blood sugar 1 time daily or as directed. 100 Lancet 3 4 12/23/19 24 blood glucose (NO BRAND SPECIFIED) test stripIndications: Type 2 diabetes mellitus with hyperglycemia, without long-term current use of insulin (H) Use to test blood sugar 1 time daily or as directed. 100 strip 3 4 12/23/19 24 blood glucose monitoring (NO BRAND SPECIFIED) meter device kitIndications:Ty pe 2 diabetes mellitus with hyperglycemia, without long-term current use of insulin (H) Use to test blood sugar 1 times daily or as directed. 1 kit 4 12/23/19 24 escitalopram (LEXAPRO) 10 MG tabletIndications :Major depressive disorder, recurrent episode, moderate (H) Take 1 tablet (10 mg) by mouth daily. 60 tablet 4 12/23/19 24 fluticasone-salme terol (ADVAIR) 500-50 MCG/ACT inhalerIndication s:Moderate persistent asthma without complication Inhale 1 puff into the lungs every 12 hours. 1 each 1 4 12/21/19 24 glipiZIDE (GLUCOTROL XL) 10 MG 24 hr tabletIndications :Type 2 diabetes mellitus without complication, without long-term current use of insulin (H) Take 1 tablet (10 mg) by mouth daily 90 tablet 1 4 01/05/20 24 ondansetron (ZOFRAN ODT) 4 MG ODT tabIndications:Na usea Take 1 tablet (4 mg) by mouth every 8 hours as needed for nausea. 30 tablet 4 12/23/19 24 ondansetron (ZOFRAN) 4 MG tabletIndications :Nausea Take 1 tablet (4 mg) by mouth every 8 hours as needed for nausea. 30 tablet 4 01/09/20 24 tiotropium (SPIRIVA RESPIMAT) 2.5 MCG/ACT inhalerIndication s:Moderate persistent asthma with exacerbation Inhale 2 puffs into the lungs daily. 4 g 3 4 12/21/19 umeclidinium (INCRUSE ELLIPTA) 62.5 MCG/ACT inhalerIndication s:Moderate persistent asthma without complication Inhale 1 puff into the lungs daily 1 each 5 4 12/21/19 24 documented as of this encounter ED Notes * Tiki Prakash RN - 12/18/2023 10:27 AM CDT Pt reports post neb he is feeling much better and no SOB. * Aditi Santos MD - 12/18/2023 9:06 AM CDT Emergency Department Note History of Present Illness Chief Complaint Shortness of Breath HPI Peter Devi is a 63 year old male with a history of type II diabetes, asthma, and thoracic aortic aneurysm who presents to the ED for the evaluation of shortness of breath. 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 He normally uses a nebulizer but did not have one with him today. He has never been hospitalized for asthma before. Denies fever, chest pain, or recent illnesses. Independent Historian None Review of External Notes Reviewed patient's telephone note with pulmonology on 12/02/2023, patient is calling for more DuoNebinhaler solutions. Patient reports that the medication prescribed was too expensive and he could not miner pick the daily inhaler that they wanted him to start. Patient called several times asking for DuoNeb inhaler solutions. He has been noncompliant with his other medications and was advised to schedule an appointment. Reviewed patient's telephone note on 12/16/2023, and patient has an appointment on 12/21/2023 with pulmonology. Past Medical History Medical History and Problem List MDD LUZ Diabetes mellitus type II Asthma Obesity Thoracic aortic aneurysm R wrist osteoarthritis Medications albuterol atorvastatin escitalopram glipizide metformin omeprazole ondansetron semaglutide sucralfate Surgical History R mediastinal cyst excision Toe surgery Physical Exam Patient Vitals for the past 24 hrs: BP Temp Pulse Resp SpO2 Height Weight 12/18/23 1103 132/88 -- 94 -- 93 % -- -- 12/18/23 1100 132/88 -- 94 -- 95 % -- -- 12/18/23 1055 -- -- -- 18 91 % -- -- 12/18/23 1045 131/81 -- 95 -- 94 % -- -- 12/18/23 1030 114/85 -- 82 -- 96 % -- -- 12/18/23 1015 108/87 -- 95 -- 93 % -- -- 12/18/23 1000 (!) 134/92 -- 92 -- 93 % -- -- 12/18/23 0740 (!) 140/94 97.7 ??F (36.5 ??C) 94 18 92 % 1.753 m (5' 9) 133.9 kg (295 lb 3.1 oz) Physical Exam General: Well-nourished, resting comfortably when I enter the room Eyes: Pupils equal, conjunctivae pink no scleral icterus or conjunctival injection ENT: Moist mucus membranes Respiratory: Wheezing bilaterally. Good air movement CV: Normal rate and rhythm, no murmurs GI: Abdomen soft and non-distended. No tenderness, guarding or rebound Skin: Warm, dry. No rashes or petechiae Musculoskeletal: No peripheral edema or calf tenderness Neuro: Alert and oriented to person/place/time Psychiatric: Normal affect Diagnostics Lab Results Labs Ordered and Resulted from Time of ED Arrival to Time of ED Departure - No data to display Imaging No orders to display EKG ECG results from 12/18/23 EKG 12 lead Value Systolic Blood Pressure Diastolic Blood Pressure Ventricular Rate 84 Atrial Rate 84 CO Interval 140 QRS Duration 90 QT 360 QTc 425 P [place] 75 R AXIS -36 T [place] 48 Interpretation ECG Sinus rhythm Left axis deviation Inferior infarct , age undetermined Abnormal ECG When compared with ECG of 08-Nov-2023 19:18, No significant change was found *Note: Due to a large number of results and/or encounters for the requested time period, some results have not been displayed. A complete set of results can be found in Results Review. Independent Interpretation None ED Course Medications Administered Medications ipratropium - albuterol 0.5 mg/2.5 mg/3 mL (DUONEB) neb solution 6 mL (6 mLs Nebulization $Given 12/18/23 6361) Procedures Procedures Discussion of Management None ED Course ED Course as of 12/18/23 1420 Sun Dec 18, 2023 0906 I evaluated the patient and obtained history. Additional Documentation None Medical Decision Making / Diagnosis [facility] Diagnoses: None MIPS None MDM Peter Devi is a 63 year old male 63-year-old male with a history of asthma, diabetes presentsto the emergency department with a complaint of shortness of breath. 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 He states that he normally carries hisinhaler with him for his asthma but did not have it this morning. He states that normally when he feels like this he does a nebulizer treatment but he did not have any other treatments with him. Patient has not had any fevers, cough, recent illnesses. He is not having any chest pain. On exam patient is not in any acute distress. He does have some very mild wheezing bilaterally. He is not hypoxic. He is speaking in full sentences. Patient is given a breathing treatment. Patient states that he feels immediately better. No signs of upper respiratory infection, I do not think that the patient has pneumonia. He does not look fluid overloaded, and I have low suspicion for CHF exacerbation. I do think that this is his asthma. I did look through his chart and his blood sugars have been elevated, I am hesitant to start him on steroids as he has such mild symptoms. Patient does have an appointment with pulmonology in 3 days. He states that he would like to go home now he does not need anything else. He does have his nebulizer and albuterol inhaler at home. Patient isdischarged home. Disposition The patient was discharged. Diagnosis ICD-10-CM 1. Mild intermittent asthma with acute exacerbation J45.21 Discharge Medications Discharge Medication List as of 12/18/2023 11:02 AM Scribe Disclosure: Kathy Chakraborty, am serving as a scribe at 9:10 AM on 12/18/2023 to document services personallyperformed by Aditi Santos MD based on my observations and the provider's statements to me. 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 While doing his route patient became SOB. Patient has a hx of asthma but didn't have his inhaler with him. 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 MANAGER Office Visit [address] [phone] Manuel Ahn, [address] [place] [address] 02/02/2024 1:30 PM RESEARCH LABORATORY MANAGER Therapy Visit [facility] [address] [facility] [address] [place] [phone] Alicja Roldan, OT [address] [place], [place] [phone] 02/05/2024 8:00 PM RESEARCH LABORATORY MANAGER Therapy Visit [facility] [place] [address] [phone] 02/13/2024 4:30 PM RESEARCH LABORATORY MANAGER Oncology Visit [facility] [address] [place] [address] Marian Agustin, ALARM MECHANIC [facility] [address] [facility] [address] [place] [address] 03/01/2024 7:00 AM RESEARCH LABORATORY MANAGER Office Visit [facility] [address] [place] [phone] Estella Hassan, [facility] [address] [place] [address] 03/23/2024 2:00 PM RESEARCH LABORATORY MANAGER Office Visit [facility] [address] [place] [address] [place] [phone] Lizet Mann PA-C [address] [place] [address] 03/29/2024 3:30 PM RESEARCH LABORATORY MANAGER Office Visit [facility] [address] [facility] [address] [place] [address] Hakeem Chacko MBBS [address] [place] [address] 05/03/2024 3:00 PM RESEARCH LABORATORY MANAGER Office Visit [address] [phone] Gaurav Valenzuela, ALARM MECHANIC [facility] [address] [address] 05/22/2024 10:30 AM CDT Office Visit [address] [phone] Estella Hassan, [facility] [address] [place] [address] 05/22/2024 11:30 AM CDT Office Visit [address] [place] [address] [place] [address] [place] [address] documented as of this encounter Goals Goal [...] for health insurance by looking in to [employer] and talking with a FRW. Completed 3. I will look for a new job and will access resources that the [employer] center offers. . Sarted new job 4. [...] Maintenance Due or Overdue 20%(01/27/20 7:55 AM RESEARCH LABORATORY MANAGER) No Mirta Kendall, SILVER Note: Barriers: Life stressors Strengths: [...] Procedure Name Priority Date/Time Associated Diagnosis Comments EKG 12-LEAD, TRACING ONLY STAT 12/18/2023 7:55 AM CDT documented in this encounter Results * EKG 12 lead (12/18/2023 7:55 AM CDT) Systolic Blood Pressure mmHg RADIOLOGY RESULTS Diastolic Blood Pressure mmHg RADIOLOGY RESULTS Ventricular Rate 84 BPM RAD IOLOGY RESULTS Atrial Rate 84 BPM RADIOLOG Y RESULTS CO Interval 140 ms RADIOLOG Y RESULTS QRS Duration 90 ms RADIOLO GY RESULTS QT 360 ms RADIOLOGY RESULTS QTc 425 ms RADIOLOGY RESULTS P Vienna 75 degrees RADIOLOGY RESULTS R AXIS -36 degrees RADIOLOGY RESULTS T [place] 48 degrees RADIOLOGY RESULTS Interpretation ECG Sinus rhythm Left axis deviation Inferior infarct , age undetermined Abnormal ECG When compared with ECG of 08-Nov-2023 19:18, No significant change was found Confirmed by - EMERGENCY ROOM, PHYSICIAN ([id number]), news copy editor KATHIA MENA ([id number]) on 12/19/2023 6:57:45 AM RADIOLOGY RESULTS 12/18/2023 7:55 AM CDT 12/19/2023 6:57 AM CDT us Ti Wang MD ECG ORDERABLES Edited Result - Final RADIOLOGY RESULTS documented in this encounter Visit Diagnoses Diagnosis Mild intermittent asthma with acute exacerbation Unspecified asthma, with exacerbation documented in this encounter Administered Medications Inactive Administered Medications - up to 3 most recent administrations Medication Order MAR Action Action Date Dose Rate Site ipratropium - albuterol 0.5 mg/2.5 mg/3 mL (DUONEB) neb solution 6 mL 6 mL, Nebulization, ONCE, On 12/18/23 at 0910, For 1 dose $Given 12/18/2023 9:45 AM CDT 6 mLs documented in this encounter Active and Recently Administered Medications Times are shown in CDT. Scheduled Medication Order 12/16/2023 12/17/2023 12/18/2023 ipratropium - albuterol 0.5 mg/2.5 mg/3 mL (DUONEB) neb solution 6 mL (COMPLETED) 6 mL, Nebulization, ONCE, On 12/18/23 at 0910, For 1 dose 0945 ($Given - Provi crista: Tiki Cordero RN) documented in this encounter Additional Health Concerns [...] documented as of this encounter Care Teams Health Science Specialist Relationship Specialty [place] [address] [place] [address] PCP - General Family Practice 07/11/14 [place] [address] [place] [address] Assigned PCP 12/16/11 Christy Campuzano PA-C [address] [place] [address] [id number] Referring Physician Family Medicine 04/22/20 Hans Cannon MD [address] [place] [address] [phone] Resident Pulmonary Disease 04/22/20 Estella Hassan, [facility] [address] [place] [address] Pharmacist Pharmacist 05/26/20 Elaina Moreno MD [address] [place], [place] [phone] Cardiovascular & Thoracic Surgery 08/06/20 John Webb MD [address] [place] [address] Cardiovascular Disease 08/25/21 John Webb MD [address] [place] [id number] Cardiovascular Disease 08/25/21 Estella Hassan, [facility] [address] [place], [place] 6[address] Assigned MTM Pharmacist 12/09/21 Lindsay Carey OD [address] [place] [address] Ophthalmology 01/29/22 Richard Kam MD [address] [place] [address] [id number] Assigned Musculoskeletal Provider 08/14/22 [place] [address] [address] Assigned Neuroscience Provider 01/01/23 Rosemarie Mcdowell, RN Balloon Design Printer Diabetes Education 03/17/23 Ravi Brownlee MD [address] [place] [address] [phone] Assigned Heart and Vascular Provider 09/04/23 01/03/24 Mitra Kendall, VP CLINICAL Lead Director Sales And Marketing Primary Care - [facility] 12/12/23 documented as of this encounter
--- OUTSIDE RECORDS SUMMARY | 2024-01-31 20:05 | XMS_ITS | Encounter Summary ---
Author Organization [place] Address [address] [place] [address] Care Team Providers Care Body Shop Mechanic Name Role Phone Va Glez MD Primary Care Provider [phone] Va Glez MD Unavailable Christy Campuzano PA-C Unavailable [phone] Hans Cannon MD Unavailable [phone] Estella Hassan [facility] Unavailable Josh Cordero MD, Madhuri Unavailable [phone] John Webb MD Unavailable John Webb MD Unavailable Estella Hassan [facility] Unavailable Lindsay Carey OD Unavailable Richard Kam MD Unavailable Gaby Vila DO Unavailable [phone] Rosemarie Mcdowell RN Unavailable Ravi Brownlee MD Unavailable [phone] Mitra Kendall INFORMATION TECHNOLOGY AUDIT MANAGER Unavailable [phone] Encounter Details Date Type Department Care Team (Latest Contact Info) Description 12/15/2023 Travel Social History Tobacco Use Types Packs/Day [...] week 10/20/2022 How often do you attend [facility] or moravian services? More than 4 times per year 10/20/2022 Do you belong to any clubs o r organizations such as sikh groups, unions, fraternal or athletic groups, or [...] Answer Date Recorded PHQ-2 Score 1 10/13/2023 [employer] of Occupat ional Health - Occupational Stress [...] an overnight skilled nursing, 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.) Yes 03/18/2023 Are you worried [...] on file Legal 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 CATERING ATTENDANT Gender Identity Not on file Sexual Orientation Not on file Occupation Industry Job Start Date Job End Date Not on file Not on file Not on file Not on file documented as of this encounter Plan of Treatment Upcoming Encounters Date Type Department Care Team (Late st Contact Info) Description 02/01/2024 3:00 PM CATERING ATTENDANT [facility] [address] [facility] [place] [address] Manuel Ahn, [address] [facility] [place] [address] 02/02/2024 1:30 PM CATERING ATTENDANT Therapy Visit [facility] [id number] [place] [address], [place] [address] Alicja Roldan, OT [address]09 [place] [address] 02/05/2024 8:00 PM CATERING ATTENDANT Therapy Visit [facility] [place] [address] [facility] 103 [place] [phone] 02/13/2024 4:30 PM CATERING ATTENDANT Oncology Visit [facility] 909 [place] [phone] Marian Agustin APRN [facility] [address] [facility] [address] [place] [address] 03/01/2024 7:00 AM CATERING ATTENDANT Office Visit [facility] [address] [place] [phone] Estella Hassan, [facility] 30[address] [place] [address] 03/23/2024 2:00 PM CATERING ATTENDANT Office Visit [facility] [address] [place] [phone] Lizet Mann PA-C 717 [place] [address] 03/29/2024 3:30 PM CATERING ATTENDANT Office Visit [facility] [address] [facility] [address] [place] [address] Hakeem Chacko MBBS 2945 [place] [address] 05/03/2024 3:00 PM CATERING ATTENDANT Office Visit [facility] [address] [place] [phone] Gaurav Valenzuela, PACKING MACHINE INSPECTOR HELP DESK REP [address] [place] [address] [place] [address] 05/22/2024 10:30 AM CDT Office Visit [facility] [address] [place] [phone] Estella Hassan, [facility] [address] [place] [address] 05/22/2024 11:30 AM CDT Office Visit [facility] [address] [place] [address] [place] [address] [place], [place] [phone] documented as of this encounter Goals Goal [...] for health insurance by looking in to [employer] and talking with a FRW. Completed 3. I will look for a new job and will access resources that the [employer] offers. . Sarted new job 4. Continue [...] documented as of this encounter Care Teams Body Shop Mechanic Relationship Specialty [place] [address] [place] [address] PCP - General Family Practice 07/11/14 [place] [address] [place] [address] Assigned PCP 12/16/11 Christy Campuzano PA-C [address] [place] [address] 733672 Referring Physician Family Medicine 04/22/20 Hans Cannon MD [address] [place] [address] 869322 Resident Pulmonary Disease 04/22/20 Estella Hassan [facility] [address] [place], [place] [address] Pharmacist Pharmacist 05/26/20 Elaina Moreno MD 909 [place] [address] Cardiovascular & Thoracic Surgery 08/06/20 John Webb MD [address] [place] [address] Cardiovascular Disease 08/25/21 John Webb MD [address] [place] [address] Cardiovascular Disease 08/25/21 [facility] 30[address] [place], [place] 925346 Assigned MTM Pharmacist 12/09/21 Lindsay Carey OD [address] [facility] [place] [address] Ophthalmology 01/29/22 Richard Kam MD [address] [place], [place] 339285 Assigned Musculoskeletal Provider 08/14/22 [place] [address] [place], [address] [address] Assigned Neuroscience Provider 01/01/23 Rosemarie Mcdowell, RN Apartment Community Manager Diabetes Education 03/17/23 Ravi Brownlee MD [address] [facility] 276 [place] [address] Assigned Heart and Vascular Provider 09/04/23 01/03/24 Mitra Kendall, INFORMATION TECHNOLOGY AUDIT MANAGER [facility] - CC 12/12/23 documented as of this encounter
--- OUTSIDE RECORDS SUMMARY | 2024-01-31 20:05 | XMS_ITS | Encounter Summary ---
Author Organization [facility] Address [address] [place] [address] Care Team Providers Care Dumpster Driver Name Role Phone Va Glez MD Primary Care Provider [phone] Va Glez MD Unavailable Christy Campuzano PA-C Unavailable Hans Cannon MD Unavailable Burt Jovel MD Unavailable [phone] Estella Hassan [facility] Unavailable [phone] Josh Cordero MD, Madhuri Unavailable [phone] John Webb MD Unavailable John Webb MD Unavailable [phone] Estella Hassan [facility] Unavailable [phone] Lindsay Carey OD Unavailable Richard Kam MD Unavailable Gaby Vila DO Unavailable Rosemarie Mcdowell RN Unavailable Ravi Brownlee MD Unavailable Reason for Visit * Reason Onset Date Comments Prior Auth - Medication 12/02/2023 ondanset rei (ZOFRAN ODT) 4 MG ODT tab -EPA DENIED Encounter Details Date Type Department Care Team (Late st Contact Info) Description 12/02/2023 Telephone [facility] [address] [place] [address] [place] [address] [place] [address] Prior Auth - Medication (ondansetron (ZOFRAN ODT) 4 MG ODT tab -EPA DENIED) Social History Tobacco Use Types Packs/Day Years [...] week 10/20/2022 How often do you attend [facility] or roman catholic services? More than 4 times per year 10/20/2022 Do you belong to any clubs o r organizations such as yarsanism groups, unions, fraternal or athletic groups, or [...] Answer Date Recorded PHQ-2 Score 1 10/13/2023 [facility] Occupat ional Health - Occupational Stress [...] Answer Date Recorded Do you have housing? (Dentia shaffer is defined as stable permanent housing and does not include staying ouside in a car, in a tent, in an abandoned building, in an overnight penitentiary, 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.) Yes 03/18/2023 Are you worried [...] on file Legal 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 TIMBER HAND Gender Identity Not on file Sexual Orientation Not on file Occupation Industry Job Start Date Job End Date Not on file Not on file Not on file Not on file documented as of this encounter Miscellaneous Notes * Telephone Encounter - Kerry Bernal RN - 12/07/2023 9:11 AM CDT RN spoke to patient Advised oral zofran sent, which may still require PA however if denied and has to pay gomez will be cheaper, will follow up with [facility] to discuss Wondering if should get Covid vaccine? RN advised that if has not received the 24-25 vaccine to get this updated, patient states understanding Wonders if needs a pneumonia vaccine, per chart review this was completed in 2023 and is up to dateat this time Reviewed the next upcoming dates/times of appt with Dr. Glez and [facility] Provided colonoscopy scheduling number as they have been unable to reach patient to schedule Patient wrote down and agrees to call and schedule this Jyothi Lozada [facility] * Telephone Encounter - Yelena Bustamante RN - 12/06/2023 3:37 PM CDT Attempt x 1. Called pt and left a message to call back to and to ask to speak to a nurse. When pt calls back, Relay message from provider below that med requested has been sent to pharmacy. Yelena Tucker RN Clinic RN [facility] * Telephone Encounter - Va Glez MD - 12/06/2023 3:28 PM CDT Ok, done. * Telephone Encounter - Kerry Bernal RN - 12/06/2023 1:[address] Glez ODT was prescribed, would you like to try sending the oral tablets to see if covered? This still states it will need a PA, however will be cheaper for patient if he has to pay out of pocket Jyothi Lozada [facility] * Telephone Encounter - Va Glez MD - 12/05/2023 3:51 PM CDT I think that's what we prescribed, isn't it? * Telephone Encounter - Ally Quarles RN - 12/05/2023 2:28 PM CDT RN called and spoke with patient. Relayed provider message, instructed if patient would like dissolvable tablets he will have to pay out of pocket. Patient asked if Dr Glez would be able to prescribe the non-dissolvable ones and see if we can get those covered by insurance. Dr Glez, Able to prescribe the zofran non-dissolvable to see if insurance will cover? ThanksAlly RN * Telephone Encounter - Va Glez MD - 12/05/2023 9:56 AM CDT Medicine denied. Sorry. * Telephone Encounter - Christy Gonzales - 12/02/2023 2:56 PM CDT Images from the original note were not included. [facility] Pharm[facility] Prior Authorization Team PRIOR AUTHORIZATION DENIED Medication: ONDANSETRON 4 MG PO TBDP Insurance Company: [employer] ([facility]) - Denial Date: 12/02/2023 Denial Reason(s): MUST HAVE A MEDICARE PART D MEDICALLY ACCEPTED INDICATION Appeal Information: IF THE PROVIDER WOULD LIKE TO APPEAL THIS DECISION PLEASE PROVIDE THE PA TEAM WITH A LETTER OF MEDICAL NECESSITY Patient Notified: NO documented in this encounter Plan of Treatment Upcoming Encounters Date Type Department Care Team (Late st Contact Info) Description 02/01/2024 3:00 PM TIMBER HAND Office Visit [facility] [place] [address] [place] [phone] Manuel Ahn, OD [address] [facility] [place] [address] 02/02/2024 1:30 PM TIMBER HAND Therapy Visit [facility] [address] [facility] [address] [place] [phone] Alicja Roldan, OT 909 [place] [address] 02/05/2024 8:00 PM TIMBER HAND Therapy Visit [facility] [place] 6[address] [facility] 103 [place] [phone] 02/13/2024 4:30 PM TIMBER HAND Oncology Visit [facility] 909 [place] [phone] Marian Agustin, NESSA WATCH TRAIN ASSEMBLER [address] [facility] 207 [place], [place] [address] 03/01/2024 7:00 AM TIMBER HAND Office Visit [facility] [address] [place] [phone] Estella Hassan, [facility] 3033 [place] [address] 03/23/2024 2:00 PM TIMBER HAND Office Visit [facility] [address] [place] [phone] Lizet Mann PA-C 717 [place], [place] [address] 03/29/2024 3:30 PM TIMBER HAND Office Visit [facility] [address] [facility] 200 [place] [address] Hakeem Chacko MBBS 2945 [place] [address] 05/03/2024 3:00 PM TIMBER HAND Office Visit [facility] [address] [phone] Gaurav Valenzuela, NESSA [facility] [address] [place] [address] 05/22/2024 10:30 AM CDT Office Visit [address] [phone] Estella Hassan, [facility] 30[address] [place] [address] 05/22/2024 11:30 AM CDT Office Visit [address] [phone] [place] [address] [place] [address] [phone] documented as of this encounter Goals Goal Patient Goal Type Associated Problems Recent Progress Patient-Stated? Author Health Maintenance Care Plan HP GENERAL PROBLEM 100%( 023 10:17 AM CDT) No Mitra Kendall, INSURANCE SERVICE REPRESENTATIVE Note: Update on 05/25/22 Barriers: Currently without [...] for health insurance by looking in to [employer] and talking with a FRW. Completed 3. I will look for a new job and will access resources that the [employer] offers. . Sarted new job 4. Continue [...] Visit Diagnoses Diagnosis Type 2 diabetes mellitus with hyperglycemia, without long-term current use of insulin (H)- Primary documented in this encounter Additional Health [...] documented as of this encounter Care Teams Dumpster Driver Relationship Specialty [place] [address] [place] [address] PCP - General Family Practice 07/11/14 [place] [address] [place] [address] Assigned PCP 12/16/11 Christy Campuzano PA-C [address] [place] [address] 697932 Referring Physician Family Medicine 04/22/20 Hans Cannon MD [address] [place] [address] Resident Pulmonary Disease 04/22/20 [place] [address] [place] [address] Internal Medicine 05/08/20 12/13/23 Estella Hassan, [facility] [address] [place] [address] Pharmacist Pharmacist 05/26/20 Elaina Moreno MD [address] [place] [address] Cardiovascular & Thoracic Surgery 08/06/20 John Webb MD [address] [place] [address] Cardiovascular Disease 08/25/21 John Webb MD [address] [place] [address] Cardiovascular Disease 08/25/21 Estella Hassan, [facility] [address] [place] [address] Assigned MTM Pharmacist 12/09/21 [place] [address] [place] [address] [place] [address] Ophthalmology 01/29/22 Richard Kam MD [address] [place] [address] Assigned Musculoskeletal Provider 08/14/22 [place] [address] [place], [address] [address] Assigned Neuroscience Provider 01/01/23 Rosemarie Mcdowell RN Public Relations Specialist Diabetes Education 03/17/23 Ravi Brownlee MD [address] [place] [address] 276 [place], [place] 9[address] Assigned Heart and Vascular Provider 09/04/23 01/03/24 documented as of this encounter
--- OUTSIDE RECORDS SUMMARY | 2024-01-31 20:05 | XMS_ITS | Encounter Summary ---
Author Organization [facility] Address [address] [place] [address] Care Team Providers Care Farmworker Name Role Phone Va Glez MD Primary Care Provider Va Glez MD Unavailable Christy Campuzano PA-C Unavailable [phone] Hans Cannon MD Unavailable [phone] Burt Jovel MD Unavailable Estella Hassan [facility] Unavailable [phone] Josh Cordero MD, Madhuri Unavailable [phone] John Webb MD Unavailable John Webb MD Unavailable Estella Hassan [facility] Unavailable [phone] Lindsay Carey OD Unavailable [phone] Richard Kam MD Unavailable Gaby Vila DO Unavailable [phone] Rosemarie Mcdowell RN Unavailable Ravi Brownlee MD Unavailable Reason for Visit * Reason Comments Medication Therapy Management Encounter Details Date Type Department Care Team (Late st Contact Info) Description 11/25/2023 2:30 PM CDT [facility] [address] [address] Estella Hassan, [facility] [address] [place] [address] Type 2 diabetes mellitus with hyperglycemia, without long-term current use of insulin (H) (Primary Dx); Moderate persistent asthma with exacerbation; Morbid obesity due to excess calories (H) Social History Tobacco Use Types Packs/Day [...] week 10/20/2022 How often [facility] you attend [facility] or pentecostal services? More than 4 times per year 10/20/2022 Do you belong to any clubs o r organizations such as rastafarian groups, unions, fraternal or athletic groups, or [...] Answer Date Recorded PHQ-2 Score 1 10/13/2023 [facility] Icard of Occupat ional Health - Occupational Stress [...] in an abandoned building, in an overnight assisted, 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.) Yes 03/18/2023 Are you worried [...] on file Legal 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 DIVERSITY SPECIALIST Gender Identity Not on file Sexual [...] - - Weight 134.7 kg (297 lb) 11/25/2023 1:53 PM CDT Height - - Body Mass Index 45.16 11/11/2023 1:04 PM CDT documented in this encounter Patient Instructions * Patient Instructions* Estella Hassan RPH - 11/25/2023 2:30 PM CDT Recommendations from today's MTM visit: gwot ia/ilo intelligence support either Spiriva or Incruse to start every day. Increase Ozempic to 2 mg weekly. It was great speaking with you today. I value your experience and would be very thankful for your time in providing feedback in our clinic survey. In the next few days, you may receive an email or text message from [employer] with a link to a survey related to your ???clinical pharmacist. To schedule another MTM appointment, please call the clinic directly or you may call the MTM scheduling line at [phone] or toll-free at . My Clinical Pharmacist's contact information: Please feel free to contact me with any questions or concerns you have. Estella Hassan, PharmD, BCACP Medication Therapy Management Provider, [facility] documented in this encounter Progress Notes * Estella Hassan RPH - 11/25/2023 2:30 PM CDT Medication Therapy Management (MTM) Encounter ASSESSMENT: Medication Adherence/Access: See below for considerations Diabetes/Obesity: Patient is not meeting A1c goal of < 7%. Patient would benefit from increasing dose of semaglutide for better A1c lowering and weight loss as previously planned. He prefers to stay on this despite cost considering weight gain side effect ofother cheaper options. Okay not to check blood glucose with CGM if cost barrier. Educated on how toapply CGM sensors and application of a sensor in office today. Future discuss starting low dose aspirin for preventative therapy as ASCVD risk >10% Asthma: Educated to only use Duonebs four times daily as prescribed and re- iterated to stay adherent to prescribed inhalers. Recommend LAMA use and sent Spiriva inhaler to see if more cost effective for him than Incruse. Follow-up with pulmonology. Will send message to pulmonology if additional nebulizer treatment would be possible since more cost-effective when he cannot afford his inhalers. He does not qualify for patient assistance programs. PLAN: gwot ia/ilo intelligence support either Spiriva or Incruse to start every day. Increase Ozempic to 2 mg weekly as planned. Follow-up: Return in about 2 months (around 01/25/2024) for Medication Therapy Management Pharmacist. SUBJECTIVE/OBJECTIVE: Peter Devi is a 63 year old male seen for a follow-up visit. Reason for visit: Braingaze sensor application. Tobacco: He reports that he quit smoking about 40 years ago. His smoking use included cigarettes. He has never used smokeless tobacco. Alcohol: not currently using Medication Adherence/Access: will product picker Ozempic 4 days late and has not picked up Incruse inhalerstill due to cost. Diabetes /Obesity Metformin 2000 mg daily with supper Ozempic 1 mg weekly - will be increasing to 2 mg next week (he will take dose 4 days late due to waiting to get paid) Glipizide XL 10 mg daily He reports no side effects at all now, feeling better now from recent nausea episode. Blood sugar monitoring: hasn't been checking - brings in Best Five Reviewed CGM today for application Current symptoms: none, denies GI side effects now Diet/Exercise: Drinking a lot of pop late at night, but has tried to be more mindful of caffeine content, drinking more 7-up, larisa, and propel. 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 No changes. Eye exam in the last 12 months? No Foot exam: due Asthma: - ICS/LABA - Advair Diskus/Wixela Inhub 500/50 mcg - one puff twice daily (he is unclear if he is actually using this twice daily as prescribed or still only once daily) - Hasn't picked up Incruse yet to start due to cost - Albuterol (ProAir/Ventolin/Proventil) as needed - Ipratropium and albuterol Neb (DuoNeb) as needed - this helps control his symptoms well, uses 2 times per day usually and has a portable nebulizer if he needs it during the day - after further questioning he does report sometimes using this four times daily or 5 times a day especially when he doesn't have his inhalers Patient rinses their mouth after using steroid inhaler, occasionally forgets. Patient reports no current medication side effects. Triggers include: dust mites, exercise or sports, and emotions. Patient reports the following symptoms: shortness of breath upon exertion - hasn't worsened but still occurs. Slightly improved compared to previous. Today's Vitals: Wt 297 lb (134.7 kg) BMI 45.16 kg/m?? I spent 30 minutes with this patient today. All changes were made via collaborative practice agreement with Va Glez MD. A copy of the visit note was provided to the patient's provider(s). A summary of these recommendations was given to the patient. Estella Hassan, PharmD, BCACP Medication Therapy Management Provider, [facility] [phone] Medication Therapy Recommendations Moderate persistent asthma with exacerbation Current Medication: umeclidinium (INCRUSE ELLIPTA) 62.5 MCG/ACT inhaler Rationale: Cannot afford medication product - Cost - Adherence Recommendation: Change Medication - Spiriva Respimat 2.5 MCG/ACT Aers Status: Accepted per [facility] documented in this encounter Plan of Treatment Upcoming Encounters Date Type Department Care Team (Late st Contact Info) Description 02/01/2024 3:00 PM DIVERSITY SPECIALIST Office Visit [facility] [address] [facility] [place] [phone] Manuel Ahn, [address] [facility] [place] [id number] 02/02/2024 1:30 PM DIVERSITY SPECIALIST Therapy Visit [facility] [address] [facility] [address] [place] [address] Alicja Roldan, OT [address] [place] [address] 02/05/2024 8:00 PM DIVERSITY SPECIALIST Therapy Visit [facility] [address] [facility] [address] [place] [phone] 02/13/2024 4:30 PM DIVERSITY SPECIALIST Oncology Visit [facility] 909 [place] [phone] Marian Agustin, [facility] [address] [facility] [address] [place], [place] [address] 03/01/2024 7:00 AM DIVERSITY SPECIALIST Office Visit [facility] [address] [place] [phone] Estella Hassan, [facility] [address] [place] [address] 03/23/2024 2:00 PM DIVERSITY SPECIALIST Office Visit [facility] [address] [place] [address] [place] [phone] Lizet Mann PA-C 717 [place] [address] 03/29/2024 3:30 PM DIVERSITY SPECIALIST Office Visit [facility] [address] [facility] 200 [place] [phone] Hakeem Chacko MBBS [address] [place] [address] 05/03/2024 3:00 PM DIVERSITY SPECIALIST Office Visit [facility] [address] [place] [phone] Gaurav Valenzuela, LAPPING MACHINE TENDER [facility] [address] [place] [address] 05/22/2024 10:30 AM CDT Office Visit [facility] [address] [place] [phone] Mo Estella T, [facility] [address] [place] [address] 05/22/2024 11:30 AM CDT Office Visit [facility] [address] [place] [phone] [place] [address] [place] [address] documented as of this encounter [...] for health insurance by looking in to [employer] and talking with a FRW. Completed 3. I will look for a new job and will access resources that the [employer] offers. . Sarted new job 4. Continue [...] long-term current use of insulin (H)- Primary Moderate persistent asthma with exacerbation Unspecified asthma, with exacerbation Morbid obesity due to excess calories (H) documented in this encounter Additional Health Concerns Active Problems Noted Date Diagnosed Date HP GENERAL PROBLEM 02/02/2022 Patient expresses financial resource strain 02/11 Patient expresses financial resource strain 01/1 04/2022 Note: Insurance Goal Statement: I would like [...] documented as of this encounter Care Teams Farmworker Relationship Specialty [place] [address] [place] [address] PCP - General Family Practice 07/11/14 [place] [address] [place] [address] Assigned PCP 12/16/11 Christy Campuzano PA-C [address] [place] [address] [id number] Referring Physician Family Medicine 04/22/20 Hans Cannon MD [address] [place] [address] 395152 Resident Pulmonary Disease 04/22/20 Burt Jovel MD [address] [place] [address] 409242 Internal Medicine 05/08/20 12/13/23 Estella Hassan, [facility] [address] [place] [address] Pharmacist Pharmacist 05/26/20 Elaina Moreno MD [address] [place] [address] Cardiovascular & Thoracic Surgery 08/06/20 John Webb MD [address] [address] Cardiovascular Disease 08/25/21 John Webb MD [address] [address] Cardiovascular Disease 08/25/21 Estella Hassan, [facility] [address] [place] [address] Assigned MTM Pharmacist 12/09/21 Lindsay Carey OD [address] [id number] Ophthalmology 01/29/22 Richard Kam MD [address] [place] [address] Assigned Musculoskeletal Provider 08/14/22 [place] [address] [address] [address] Assigned Neuroscience Provider 01/01/23 Rosemarie Mcdowell, RN Volunteer Specialist Diabetes Education 03/17/23 Ravi Brownlee MD [address] [place] [address] 276 [place] [address] Assigned Heart and Vascular Provider 09/04/23 01/03/24 documented as of this encounter
--- OUTSIDE RECORDS SUMMARY | 2024-01-31 20:05 | XMS_ITS | Encounter Summary ---
Author Organization [facility] Address [address] [place] [address] Care Team Providers Care Nailing Machine Feeder Name Role Phone Va Glez MD Primary Care Provider Va Glez MD Unavailable Christy Campuzano PA-C Unavailable Hans Cannon MD Unavailable Burt Jovel MD Unavailable [phone] Estella Hassan [facility] Unavailable [phone] Josh Cordero MD, Madhuri Unavailable [phone] John Webb MD Unavailable [phone] John Webb MD Unavailable Estella Hassan [facility] Unavailable Lindsay Carey OD Unavailable [phone] Richard Kam MD Unavailable Gaby Vila DO Unavailable [phone] Rosemarie Mcdowell RN Unavailable [phone] Ravi Brownlee MD Unavailable Reason for Visit * Reason Onset Date Comments Refill Request 11/30/2023 1. albuterol ([place] OAIR HFA/PROVENTIL HFA/VENTOLIN HFA) 108 (90 Base) MCG/ACT inhaler 2. albuterol solution Encounter Details Date Type Department Care Team (Late st Contact Info) Description 11/30/2023 Telephone [facility] [address] [address] Ravi Brownlee MD [address] [facility] [address] [place] [address] Refill Request (1. albuterol (PROAIR HFA/PROVENTIL HFA/VENTOLIN HFA) 108 (90 Base) MCG/ACT inhaler /2. albuterol solution /) Social History Tobacco Use Types Packs/Day Years [...] week 10/20/2022 How often do you attend [facility] or religion services? 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 He also understands that he has overused his Albuterol nebulizer in the past, but would really appreciate it if Dr. Brownlee could send in just one box of his nebulizer solution so he can have it for his trip to [place]. Pt understands that his medications will need to be adjusted when he comes for his 12/16/23 appt because his current regimen is just not working, and he is in support of that change because he realizes he cannot be using his nebulizer as much as he has in the past. In the meantime however, he feels like his breathing issues are not under control at the moment, and feels like the albuterol nebulizer solutions works significantly better for him than the albuterolinhaler. Would really like to be able to have some of his nebulizer solution while he is on his trip because he knows he will really struggle to breathe without it. * Telephone Encounter - Dino Ponce RN - 12/02/2023 3:36 PM CDT Rx placed for single refill albuterol inhaler. Patient also requesting refill for Wixela. Refill for Wixela sent. Patient was advised that Duonebs would not be filled by Dr Brownlee and regimen will be discussed at next OV on 12/16/23. Patient has been provided with 3 fills of albuterol inhalers in thepast month. Requested Prescriptions Signed Prescriptions Disp Refills albuterol (PROAIR HFA/PROVENTIL HFA/VENTOLIN HFA) 108 (90 Base) MCG/ACT inhaler 18 g 0 Sig: Inhale 2 puffs into the lungs every 6 hours as needed for shortness of breath, wheezing or cough. There is no refill protocol information for this order fluticasone-salmeterol (ADVAIR) 500-50 MCG/ACT inhaler 1 each 1 Sig: Inhale 1 puff into the lungs every 12 hours. There is no refill protocol information for this order Last Written Prescription Date: 06/10/23 Last Fill Quantity: 1 each, # refills: 5 Last office visit: 06/10/23 ; last virtual visit: Visit date not found with prescribing provider: Vadim Future Office Visit: 12/16/23 Dino Ponce RN * Telephone Encounter - Kizzy Carey - 12/01/2023 11:40 AM CDT [facility] Call Center Phone Message May a detailed message be left on voicemail: yes Reason for Call: Medication Refill Request Has the patient contacted the pharmacy for the refill? Yes Name of medication being requested: albuterol (PROAIR HFA/PROVENTIL HFA/VENTOLIN HFA) 108 (90 Base) MCG/ACT inhaler albuterol Neb solution Provider who prescribed the medication: Ravi Brownlee MD Pharmacy: [id number] [address] Date medication is needed: michael The patient said he forgot to ask the nurse to process his refills before he travel on 12/05-12/17 [facility], please review and follow up with patient thank you. Action Taken: Message routed to: [facility] Pul Travel Screening: Not Applicable Date of Service: * Telephone Encounter - Karyn Monroe - 12/01/2023 11:24 AM CDT Patient states the nurse wondered when patient was going to be back in town. Patient states he willbe back on 12/19/2023. Patient states he is wanting to get a call back. Please advise. * Telephone Encounter - Dino Ponce RN - 12/01/2023 11:22 AM CDT Called and spoke to patient regarding refill request. Patient had albuterol inhaler sent on 11/17/23.Patient states that he was fishing and dropped that inhaler in the [place] and requested another. New inhaler ordered on 11/24/23. Previous message indicates that patient wants to visit family member in [place]. When asked about length of trip, patient indicated that he has a cousin who moved to [place] who would like patient to come visit. Patient did not mention sick cousin and states that his cousinhasn't seen him in a while and wants to catch up. Patient states that cousin will be paying for portion of flight. Patient states he plans to fly out on 12/05 or 12/06. Plans to stay in [place] for up to 10 [address] Message routed to [address] Brownlee to review. Dino Ponce RN * Telephone Encounter - Emily Dos Santos - 11/30/2023 4:55 PM CDT Pt called and stated he have been waiting for a call back from the care team, please follow-up withpt. Per pt he is going to be going out of town soon and therefore would like for a follow-up. Hollieu * Telephone Encounter - Erin Barcenas - 11/30/2023 2:03 PM CDT [facility] Call Center Phone Message May a detailed message be left on voicemail: yes Reason for Call: Medication Refill Request Has the patient contacted the pharmacy for the refill? Yes Name of medication being requested: albuterol (PROAIR HFA/PROVENTIL HFA/VENTOLIN HFA) 108 (90 Base) MCG/ACT inhaler And ipratropium - albuterol 0.5 mg/2.5 mg/3 mL (DUONEB) 0.5-2.5 (3) MG/3ML neb solution Per patient previous refills were denied but Tuesday found out he has to leave the country due to sick family member will be traveling to [place] and needs these medications for that trip. Provider who prescribed the medication: Dr. Brownlee Pharmacy: [id number] - [place], [place] - [address] Date medication is needed: Michael Action Taken: Other: PULM Travel Screening: Not Applicable Date of Service: documented in this encounter Plan of Treatment Upcoming Encounters Date Type Department Care Team (Late st Contact Info) Description 02/01/2024 3:00 PM COURTESY CAR DRIVER Office Visit [facility] [address] [place] [phone] Manuel Ahn, [address] [place] [address] 02/02/2024 1:30 PM COURTESY CAR DRIVER Therapy Visit [facility] [place] [facility] [place] [address] [facility] [address] [place] [phone] Alicja Roldan OT [address]09 [place] [address] 02/05/2024 8:00 PM COURTESY CAR DRIVER Therapy Visit [facility] [place] [address] [place] [address] 103 [place] [phone] 02/13/2024 4:30 PM COURTESY CAR DRIVER Oncology [facility] 9[address] [place] [phone] Marian Agustin APRN RESPIRATORY MANAGER [address] [facility] 207 [place] [address] 03/01/2024 7:00 AM COURTESY CAR DRIVER Office Visit [facility] [address] [place] [phone] Estella Hassan, [place] [address] [place] [address] 03/23/2024 2:00 PM COURTESY CAR DRIVER Office Visit [facility] [address] [place] [address] [place] [address] Lizet Mann PA-C 717 [place] [address] 03/29/2024 3:30 PM COURTESY CAR DRIVER Office Visit [facility] [address] [facility] 200 [place] [phone] Hakeem Chacko MBBS [address] [place] [address] 05/03/2024 3:00 PM COURTESY CAR DRIVER Office Visit [facility] [address] [place] [phone] Gaurav Valenzuela, PLASTICS FACTORY WORKER [address] [address] 05/22/2024 10:30 AM CDT Office Visit [address] [phone] Estella Hassan, [place] [address] [place] [address] 05/22/2024 11:30 AM CDT Office Visit [address] [phone] [place] [address] [place] [address] documented as of this encounter Goals Goal [...] for health insurance by looking in to [employer] and talking with a FRW. Completed 3. I will look for a new job and will access resources that the [facility] offers. . Sarted new job 4. [...] Education Needed to Optimize Self-Care Behaviors Rosemarie eRndon RN Problem Solving - know how to [...] documented as of this encounter Care Teams Nailing Machine Feeder Relationship Specialty [place] [address] [place] [address] PCP - General Family Practice 07/11/14 [place] [address] [place], [place] [phone] Assigned PCP 12/16/11 Christy Campuzano PA-C [address] [place] [address] [phone] Referring Physician Family Medicine 04/22/20 Hans Cannon MD [address] [place] [address] 250302 Resident Pulmonary Disease 04/22/20 Burt Jovel MD [address] [place] [address] [id number] Internal Medicine 05/08/20 12/13/23 Estella Hassan, [facility] 30[address] [place], [place] 458[address] Pharmacist Pharmacist 05/26/20 Elaina Moreno MD 9 [place], [place] 2837[address] Cardiovascular & Thoracic Surgery 08/06/20 John Webb MD [address] 622245 Cardiovascular Disease 08/25/21 John Webb MD [address] 132785 Cardiovascular Disease 08/25/21 Estella Hassan, [facility] [address] [place] [address] Assigned MTM Pharmacist 12/09/21 Lindsay Carey OD [address] [place] [address] Ophthalmology 01/29/22 Richard Kam MD [address] [place], [place] 924145 Assigned Musculoskeletal Provider 08/14/22 [place] [address] BC PENA, [address] [address] Assigned Neuroscience Provider 01/01/23 Rosemarie Mcdowell, RN Net Maker Diabetes Education 03/17/23 Ravi Brownlee MD [address] [place] [address] 276 [place], [place] 173875 Assigned Heart and Vascular Provider 09/04/23 01/03/24 documented as of this encounter
--- OUTSIDE RECORDS SUMMARY | 2024-01-31 20:05 | XMS_ITS | Encounter Summary ---
Author Organization [place] Address [address] [place] [address] Care Team Providers Care Fiber Optic Splicer Name Role Phone Va Glez MD Primary Care Provider [phone] Va Glez MD Unavailable Christy CampuzanoC Unavailable Hans Cannon MD Unavailable Burt Jovel MD Unavailable [phone] Estella Hassan [facility] Unavailable Josh Cordero MD, Madhuri Unavailable [phone] John Webb MD Unavailable John Webb MD Unavailable [phone] Estella Hassan [facility] Unavailable Lindsay Carey OD Unavailable Richard Kam MD Unavailable Gaby Vila DO Unavailable Rosemarie Mcdowell RN Unavailable Ravi Brownlee MD Unavailable Mitra Kendall WHEEL INSTALLER Unavailable Lizet MannC Unavailable Ravi Brownlee MD Unavailable [phone] Nav Hughes MD Unavailable [phone] Anabelle Manuelgina Syed OD Unavailable KyeArabella PAM Unavailable [phone] Allen Charleslla [facility] Unavailable Unavailable Encounter Details Date Type Department Care Team (Late st Contact Info) Description 11/30/[address] [facility] [address] 4th [place] [address] Aditi Morales Social History Tobacco Use Types Packs/Day Years [...] How often do you attend chur or pentecostal services? More than 4 times per year 10/20/2022 Do you belong to any clubs o r organizations such as hinduism groups, unions, fraternal or athletic groups, or [...] Date Recorded PHQ-2 Score 1 10/13/2023 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 Gender Identity Not on file Sexual Orientation Not on file Occupation Industry Job Start Date Job End Date Not on file Not on file Not on file Not on file documented as of this encounter Plan of Treatment Upcoming Encounters Date Type Department Care Team (Late st Contact Info) Description 02/01/2024 3:00 PM DEAD MAIL CHECKER Office Visit [facility] 6341 [place] [address] Manuel Ahn, 6341 [place] [address] 02/02/2024 1:30 PM DEAD MAIL CHECKER Therapy Visit [facility] [place] [address] [facility] [address] [place] [phone] Alicja Roldan, OT 909 [place] [address] 02/05/2024 8:00 PM DEAD MAIL CHECKER Therapy [facility] [place] 6[address] [facility] 103 [place] [phone] 02/13/2024 4:30 PM DEAD MAIL CHECKER Oncology [facility] 909 [place] [phone] Marian Agustin, CUSTOMER MARKETING MANAGER JOB MOLDER [address] [facility] 207 [place] [address] 03/01/2024 7:00 AM DEAD MAIL CHECKER Office Visit [facility] [address] [place] [phone] Estella Hassan, [facility] 3033 [place] [address] 03/23/2024 2:00 PM DEAD MAIL CHECKER Office Visit [facility] [address] [place] [address] [place] [phone] Lizet Mann PA-C 717 [place] [address] 03/29/2024 3:30 PM DEAD MAIL CHECKER Office Visit [facility] [address] [facility] [address] [place] [address] Hakeem Chacko MBBS 2945 [place] [address] 05/03/2024 3:00 PM DEAD MAIL CHECKER Office [facility] [address] [phone] Gaurav Valenzuela, CUSTOMER MARKETING MANAGER [address] [address] 05/22/2024 10:30 AM CDT Office Visit [address] [phone] Estella Hassan, [facility] 30[address] [place] [address] 05/22/2024 11:30 AM CDT Office Visit [address] [phone] [place] [id number] [place] [address] [id number] documented as of this encounter Goals Goal [...] for health insurance by looking in to [employer] and talking with a FRW. Completed 3. I will look for a new job and will access resources that the [employer] offers. . Sarted new job 4. Continue [...] and submit it to the [facility]. 3. I will update CCC Team at outreach. HbA1C Not In Goal 04/28/2023 Diabetes Self-Management Edu cation Needed to Optimize Self-Care Behaviors 04/28/2023 Infection Onset Date Last Indicated Resolved Time Rule Out COVID-19 12/27/2023 12/27/2023 12/29/2023 1:37 PM CDT Assessment Noted Time PHQ-9 Depression Total Score: 4 10/13/19 24 3:39 PM CDT documented as of this encounter Care Teams Fiber Optic Splicer Relationship Specialty [place] [address] [place] [address] PCP - General Family Practice 07/11/14 [place] [address] [place] [address] Assigned PCP 12/16/11 Christy Campuzano PA-C [address] [place] [address] Referring Physician Family Medicine 04/22/20 Hans Cannon MD [address] [place] [address] Resident Pulmonary Disease 04/22/20 Burt Jovel MD [address] [place] [address] Internal Medicine 05/08/20 12/13/23 Estella Hassan, [facility] [address] [place] [address] Pharmacist Pharmacist 05/26/20 Elaina Moreno MD [address] [place] [address] Cardiovascular & Thoracic Surgery 08/06/20 John Webb MD [address] [place] [place] [address] Cardiovascular Disease 08/25/21 John Webb MD [address] [address] Cardiovascular Disease 08/25/21 Estella Hassan, [facility] [address] [place] [address] Assigned MTM Pharmacist 12/09/21 [place] [address] [place] [address] SHANKAR ROMO [address] Ophthalmology 01/29/22 Richard Kam MD [address] [place] [address] [phone] Assigned Musculoskeletal Provider 08/14/22 [place] [address] [place] , [address] [phone] Assigned Neuroscience Provider 01/01/23 Rosemarie Mcdowell, RN Convalescent Sitter Diabetes Education 03/17/23 Ravi Brownlee MD [address] [place] [address] 600535 Assigned Heart and Vascular Provider 09/04/23 01/03/24 Mitra Kendall, [facility] Lead Acoustic Engineer Primary Care - CC 12/12/23 Lizet Mann PA-C [address] [place] [address] 201775 Assigned Cancer Care Provider 01/04/24 Ravi Brownlee MD [address] [place] [address] 570345 Assigned Pulmonology Provider 01/04/24 Nav Hughes MD [address] [place] Cheng34SHANKAR POPE 941955 Assigned Heart and Vascular Provider 01/04/24 Manuel Ahn OD [address] [place] [place]ATT 338862 Job Molder 01/05/24 Arabella Fishman MA Financial Resource Worker 01/06/24 Thalia Charles [facility] Pharmacist Pharmacy 01/26/24 documented as of this encounter
--- OUTSIDE RECORDS SUMMARY | 2024-01-31 20:05 | XMS_ITS | Encounter Summary ---
Author Organization [place] Address [address] [place] [address] Care Team Providers Care Roof Service Technician Name Role Phone Va Glez MD Primary Care Provider Va Glez MD Unavailable Christy Campuzano PA-C Unavailable Hans Cannon MD Unavailable Burt Jovel MD Unavailable Estella Hassan [facility] Unavailable [phone] Josh Cordero MD, Madhuri Unavailable [phone] John Webb MD Unavailable [phone] John Webb MD Unavailable Estella Hassan [facility] Unavailable [phone] Lindsay Carey OD Unavailable Richard Kam MD Unavailable Gaby Vila DO Unavailable Rosemarie Mcdowell RN Unavailable Ravi Brownlee MD Unavailable Encounter Details Date Type Department Care Team (Latest Contact Info) Description 11/25/2023 Travel Social History Tobacco Use Types Packs/Day [...] week 10/20/2022 How often do you attend [facility] or christianity services? More than 4 times per year 10/20/2022 Do you belong to any clubs o r organizations such as buddhism groups, unions, fraternal or athletic groups, or [...] Answer Date Recorded PHQ-2 Score 1 10/13/2023 [facility] - Occupational Stress Questionnaire Answer [...] in an abandoned building, in an overnight senior living, 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.) Yes 03/18/2023 Are you worried [...] on file Legal 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 COOK HELPER FRUIT Gender Identity Not on file Sexual Orientation Not on file Occupation Industry Job Start Date Job End Date Not on file Not on file Not on file Not on file documented as of this encounter Plan of Treatment Upcoming Encounters Date Type Department Care Team (Late st Contact Info) Description 02/01/2024 3:00 PM COOK HELPER FRUIT Office Visit [facility] [place] [address] [facility] [place] [address] Manuel Ahn, 9257 [facility] [place] [address] 02/02/2024 1:30 PM COOK HELPER FRUIT Therapy Visit [facility] [address] [place] [address] Alicja Roldan, OT 909 [place] [address] 02/05/2024 8:00 PM COOK HELPER FRUIT Therapy Visit [facility] [place] 6363 [facility] 103 [place] [phone] 02/13/2024 4:30 PM COOK HELPER FRUIT Oncology Visit [facility] 909 [place] [phone] Marian Agustin, [facility] 420 [facility] 207 [place], [place] 194395 03/01/2024 7:00 AM COOK HELPER FRUIT Office Visit [facility] [address] [place] [phone] Estella Hassan, [facility] 3033 [place] [address] 03/23/2024 2:00 PM COOK HELPER FRUIT Office Visit [facility] [address] [place] [phone] Lizet Mann PA-C 717 [place] [address] 03/29/2024 3:30 PM COOK HELPER FRUIT Office Visit [facility] 2945 [facility] 200 [place] [phone] Hakeem Chacko MBBS 2945 [place] [address] 05/03/2024 3:00 PM COOK HELPER FRUIT Office Visit [facility] [address] [place] [phone] Gaurav Valenzuela, [facility] [address] [place] [address] 05/22/2024 10:30 AM CDT Office Visit [facility] [address] [place] [phone] Estella Hassan, [facility] [address] [place] [address] 05/22/2024 11:30 AM CDT Office Visit [facility] [address] [place] [phone] [place] [address] [place] [address] documented as of this encounter [...] for health insurance by looking in to [employer] and talking with a FRW. Completed 3. I will look for a new job and will access resources that the [employer] offers. . Sarted new job 4. Continue [...] documented as of this encounter Care Teams Roof Service Technician Relationship Specialty [place] [address] [place] [address] PCP - General Family Practice 07/11/14 [place] [address] [place] [address] Assigned PCP 12/16/11 Christy Campuzano PA-C [address] [place] [address] 026092 Referring Physician Family Medicine 04/22/20 Hans Cannon MD [address] [place] [address] [phone] Resident Pulmonary Disease 04/22/20 Burt Jovel MD [address] [place] [address] [id number] Internal Medicine 05/08/20 12/13/23 Estella Hassan, [facility] [address] [place] [address] Pharmacist Pharmacist 05/26/20 Elaina Moreno MD 909 [place], [place] 539755 Cardiovascular & Thoracic Surgery 08/06/20 John Webb MD [address] [place] 409415 Cardiovascular Disease 08/25/21 John Webb MD [address] [place] 553085 Cardiovascular Disease 08/25/21 Estella Hassan, [facility] 3033 [place], [place] 200896 Assigned MTM Pharmacist 12/09/21 Lindsay Carey OD [address] [place] [address] Ophthalmology 01/29/22 Richard Kam MD [address] [place] [address] Assigned Musculoskeletal Provider 08/14/22 [place] [address] [place], [address] [address] Assigned Neuroscience Provider 01/01/23 Rosemarie Mcdowell, RN Reversing Mill Roller Diabetes Education 03/17/23 Ravi Brownlee MD [address] [place] [address] 276 [place], [place] 346305 Assigned Heart and Vascular Provider 09/04/23 01/03/24 documented as of this encounter
--- OUTSIDE RECORDS SUMMARY | 2024-01-31 20:05 | XMS_ITS | Encounter Summary ---
Author Organization [place] Address [address] [place] [address] Care Team Providers Care Linen Supply Load Builder Name Role Phone Va Glez MD Primary Care Provider Va Glez MD Unavailable Christy Campuzano PA-C Unavailable [phone] Hans Cannon MD Unavailable Burt Jovel MD Unavailable Estella Hassan [facility] Unavailable [phone] Josh Cordero MD, Madhuri Unavailable [phone] John Webb MD Unavailable John Webb MD Unavailable Estella Hassan [facility] Unavailable [phone] Lindsay Carey OD Unavailable Richard Kam MD Unavailable Gaby Vila DO Unavailable [phone] Rosemarie Mcdowell RN Unavailable Ravi Brownlee MD Unavailable Reason for Visit * Reason Onset Date Comments Patient Request 12/02/2023 Encounter Details Date Type Department Care Team (Late st Contact Info) Description 12/02/[address] [place] [phone] Kerry Bernal RN Patient Request Social History [...] any clubs o r organizations such as gnosticism groups, unions, fraternal or athletic groups, or [...] Date Recorded PHQ-2 Score 1 10/13/2023 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 Gender Identity Not on file Sexual Orientation Not on file Occupation Industry Job Start Date Job End Date Not on file Not on file Not on file Not on file documented as of this encounter Miscellaneous Notes * Telephone Encounter - Kerry Bernal RN - 12/02/2023 2:41 PM CDT RN received call from patient Vinita faiza PA Advised this will be processed and may take up to 2 weeks Advised can pay out of pocket if able (ODT was ordered which may be more expensive than tablets andpatient can swallow the tablets, he will [facility] and if would like the tablets due to costwill call to let us know) Will notify when the PA is completed Patient will be going to [place] soon Plans to take his portable nebulizer with, advised if planning to carry this on to check with the airline to see if letter is needed Patient states understanding Kerry Bernal Registered Nurse [facility] * Telephone Encounter - Yelena Bustamante RN - 12/02/2023 1:33 PM CDT Attempt x 1. Called pt and left a message to call back to and to ask to speak to a nurse. When pt calls back, Relay message from Va Glez MD below. Yelena Tucker RN Clinic RN [facility] * Telephone Encounter - Va Glez MD - 12/02/2023 1:02 PM CDT He can use zofran (sent). And yes it is related to the use of Semaglutide. * Telephone Encounter - Kerry Bernal RN - 12/02/2023 12:[address] Glez Please review pended refill, zofran Patient has been having nausea on and off, was given zofran by JULIET Reyez in the past and most recently urgent care He is uncertain if ozempic is causing nausea but states this medication works well RN returned call to patient Question regarding if he would need to take anything along to the pharmacy to get the below rx filled? RN advised it was sent electronically and should not need anything additional. Semaglutide, 2 MG/DOSE, (OZEMPIC) 8 MG/3ML pen 2. Requesting refill of zofran, has been having nausea on and off and has visits for this, most recently urgent care. He is uncertain if nausea is due to ozempic. Advised will send to pcp to review and see if able to refill 3. Trying to get pulmonary medications refilled, RN advised that she is able to see a message to that team and will need to wait for them to respond. Patient states he may not be able to make the scheduled follow up visit on 12/16/2023, RN advised ifunable to reschedule this. Jyothi Lozada Nurse [facility] * Telephone Encounter - Kerry Bernal RN - 12/02/2023 12:06 PM CDT RN received VM from patient requesting return call Did not advise what the call is pertaining to Jyothi Lozada [facility] documented in this encounter Plan of Treatment Upcoming Encounters Date Type Department Care Team (Late st Contact Info) Description 02/01/2024 3:00 PM CUSTODY ASSISTANT Office Visit [facility] 6341 [place] [phone] Manuel Ahn, OD 6341 [place] [address] 02/02/2024 1:30 PM CUSTODY ASSISTANT Therapy Visit [facility] [address] [facility] [address] [place] [phone] Alicja Roldan, OT [address] [place] [address] 416915 02/05/2024 8:00 PM CUSTODY ASSISTANT Therapy Visit [facility] [place] 6363 [facility] [address] [place] [phone] 02/13/2024 4:30 PM CUSTODY ASSISTANT Oncology Visit [facility] 909 [facility] [place] [address] Marian Agustin APRN [facility] [address] [facility] 207 [place] [address] 03/01/2024 7:00 AM CUSTODY ASSISTANT Office Visit [facility] [address] [place] [phone] Estella Hassan, [facility] [address] [place] [address] 03/23/2024 2:00 PM CUSTODY ASSISTANT Office Visit [facility] [address] [place] [phone] Lizet Mann PA-C 717 [place] [address] 03/29/2024 3:30 PM CUSTODY ASSISTANT Office Visit [facility] 2945 [facility] 200 [place] [phone] Hakeem Chacko MBBS [address] [place] [address] 05/03/2024 3:00 PM CUSTODY ASSISTANT Office Visit [facility] [address] [place] [phone] Gaurav Valenzuela, DATA CLERK [facility] [address] [facility] [address] [facility] 106 [place] [address] 05/22/2024 10:30 AM CDT Office Visit [facility] [address] [place] [phone] Estella Hassan, [facility] 3033 [place] [address] 05/22/2024 11:30 AM CDT Office Visit [facility] [address] [place] [phone] [place] [address] [place] [address] documented as of this encounter Goals Goal [...] for health insurance by looking in to [employer] and talking with a FRW. Completed 3. I will look for a new job and will access resources that the [employer] offers. . Sarted new job 4. [...] documented as of this encounter Care Teams Linen Supply Load Builder Relationship Specialty [place] [address] [place] [address] PCP - General Family Practice 07/11/14 [place] [address] [place] [address] Assigned PCP 12/16/11 Christy Campuzano PA-C [address] [place] [address] [id number] Referring Physician Family Medicine 04/22/20 Hans Cannon MD [address] [place] [address] 568502 Resident Pulmonary Disease 04/22/20 Burt Jovel MD [address] [place] [address] [id number] Internal Medicine 05/08/20 12/13/23 Estella Hassan, [facility] [address] [place], [place] [address] Pharmacist Pharmacist 05/26/20 Elaina Moreno MD 909 [place], [place] 442235 Cardiovascular & Thoracic Surgery 08/06/20 John Webb MD [address] [address] Cardiovascular Disease 08/25/21 John Webb MD [address] [place] 949325 Cardiovascular Disease 08/25/21 Estella Hassan, [facility] [address] [place] [address] Assigned MTM Pharmacist 12/09/21 Lindsay Carey, ARA [address] [facility] [place] [address] Ophthalmology 01/29/22 Richard Kam MD 500 [place], [place] 895955 Assigned Musculoskeletal Provider 08/14/22 [place] [address] BC PENA, [address] 314[address] Assigned Neuroscience Provider 01/01/23 Rosemarie Mcdowell, RN Superintendent Marine Diabetes Education 03/17/23 Ravi Brownlee MD [address] [place] [address] 276 [place], [place] 941615 Assigned Heart and Vascular Provider 09/04/23 01/03/24 documented as of this encounter
--- OUTSIDE RECORDS SUMMARY | 2024-01-31 20:05 | XMS_ITS | Encounter Summary ---
Author Organization [place] Address [address] [place] [address] Care Team Providers Care Humanities Coordinator Name Role Phone Va Glez MD Primary Care Provider Va Glez MD Unavailable Christy Campuzano PA-C Unavailable [phone] Hans Cannon MD Unavailable Burt Jovel MD Unavailable [phone] Estella Hassan [facility] Unavailable Josh Cordero MD, Madhuri Unavailable [phone] John Webb MD Unavailable [phone] John Webb MD Unavailable [phone] Estella Hassan [facility] Unavailable Lindsay Carey OD Unavailable Richard Kam MD Unavailable Gaby Vila DO Unavailable [phone] Rosemarie Mcdowell RN Unavailable Ravi Brownlee MD Unavailable [phone] Reason for Visit * Reason Comments Med Change Request Encounter Details Date Type Department Care Team (Late st Contact Info) Description 12/09/[address] [phone] [place] [address] [place], [place] [phone] Med Change Request Social History Tobacco Use Types Packs/Day [...] week 10/20/2022 How often do you attend [facility] or druze services? More than 4 times per year 10/20/2022 Do you belong to any clubs o r organizations such as advent groups, unions, [employer] or athletic groups, or school groups? 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 [place] [address] [facility] [address] [place] [phone] Alicja Roldan, OT 909 [place] [address] 02/05/2024 8:00 PM ELECTRIC CELL TENDER Therapy Visit [facility] [place] 6363 [facility] 103 [place] [phone] 02/13/2024 4:30 PM ELECTRIC CELL TENDER Oncology Visit [facility] 909 [place] [phone] Marian Agustin, TUBE DISPATCHER [facility] 420 [facility] 207 [place] [address] 03/01/2024 7:00 AM ELECTRIC CELL TENDER Office Visit [facility] [address] [place] [phone] Estella Hassan, [facility] 3033 [place] [address] 03/23/2024 2:00 PM ELECTRIC CELL TENDER Office Visit [facility] [address] [place] [address] [place] [phone] Lizet Mann PA-C 717 [place] [address] 03/29/2024 3:30 PM ELECTRIC CELL TENDER Office Visit [facility] 2945 [facility] [address] [place] [phone] Hakeem Chacko MBBS 2945 [place] [address] 05/03/2024 3:00 PM ELECTRIC CELL TENDER Office Visit [address] [phone] Gaurav Valenzuela, [facility] [address] [place], [place] [address]E [facility] 106 [place] [address] 05/22/2024 10:30 AM CDT Office Visit [facility] [address] [place] [phone] Estella Hassan, [facility] 3033 [place] [address] 05/22/2024 11:30 AM CDT Office Visit [address] [phone] [place] [address] [place], [place] [phone] documented as of this encounter Goals Goal [...] for health insurance by looking in to [employer] and talking with a FRW. Completed 3. I will look for a new job and will access resources that the [employer] offers. . Sarted new job 4. Continue [...] as of this encounter Visit Diagnoses Diagnosis Acute gastritis without hemorrhage, unspecified gastritis type documented in this encounter Additional Health Concerns [...] documented as of this encounter Care Teams Humanities Coordinator Relationship Specialty [place] [address] [place] [address] PCP - General Family Practice 07/11/14 [place] [address] [place] [address] Assigned PCP 12/16/11 Christy Campuzano PA-C [address] [place] [address] Referring Physician Family Medicine 04/22/20 Hans Cannon MD [address] [place] [address] Resident Pulmonary Disease 04/22/20 Burt Jovel MD [address] [place] [address] Internal Medicine 05/08/20 12/13/23 Estella Hassan, [facility] 3033 [place] [address] Pharmacist Pharmacist 05/26/20 Elaina Moreno MD [address] [place] [address] Cardiovascular & Thoracic Surgery 08/06/20 John Webb MD [address] [place] [address] Cardiovascular Disease 08/25/21 John Webb MD [address] [place] [address] Cardiovascular Disease 08/25/21 Estella Hassan, [facility] [address] [place] [address] Assigned MTM Pharmacist 12/09/21 Lindsay Carey OD [address] [facility] [address] Ophthalmology 01/29/22 Richard Kam MD [address] [place] [address] 460625 Assigned Musculoskeletal Provider 08/14/22 [place] [address] [address] Assigned Neuroscience Provider 01/01/23 Rosemarie Mcdowell, RN International Rec[employer] Diabetes Education 03/17/23 Ravi Brownlee MD [address] [place] [address] Assigned Heart and Vascular Provider 09/04/23 01/03/24 documented as of this encounter
--- OUTSIDE RECORDS SUMMARY | 2024-01-31 20:05 | XMS_ITS | Encounter Summary ---
Author Organization [place] Address [address] [place] [address] Care Team Providers Care Web Development Manager Name Role Phone Va Glez MD Primary Care Provider [phone] Va Glez MD Unavailable Christy Campuzano PA-C Unavailable Hans Cannon MD Unavailable Burt Jovel MD Unavailable Estella Hassan [facility] Unavailable [phone] Josh Cordero MD, Madhuri Unavailable [phone] John Webb MD Unavailable John Webb MD Unavailable [phone] Estella Hassan [facility] Unavailable [phone] Lindsay Carey OD Unavailable Richard Kam MD Unavailable Gaby Vila DO Unavailable Rosemarie Mcdowell RN Unavailable Ravi Brownlee MD Unavailable [phone] Reason for Visit * Reason Onset Date Comments Call Back 12/02/2023 Encounter Details Date Type Department Care Team (Late st Contact Info) Description 12/02/2023 Telephone [facility] [address] [phone] Ravi Brownlee MD 420 [facility] 276 [place] [address] Call Back Social History Tobacco Use Types Packs/Day Years [...] week 10/20/2022 How often do you attend [facility] or alevism services? More than 4 times per year 10/20/2022 Do you belong to any clubs o r organizations such as alevism groups, unions, fraternal or athletic groups, or [...] Answer Date Recorded PHQ-2 Score 1 10/13/2023 [facility] [place] [facility] ional Health - Occupational Stress [...] an overnight long term, 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.) Yes 03/18/2023 Are you worried [...] on file Legal 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 MACHINE II TRIMMER Gender Identity Not on file Sexual Orientation Not on file Occupation Industry Job Start Date Job End Date Not on file Not on file Not on file Not on file documented as of this encounter Miscellaneous Notes * Telephone Encounter - Iraida Sanabria RN - 12/05/2023 1:48 PM CDT Called patient who states he wants more duoneb inhaler solutions; the Wixela inhaler is too expensive and doesn't want to use the Albuterol inhaler unless he really needs it. Explained that it has been confirmed it costs $47 for the Wixela inhaler that is intended to be a maintenance inhaler with instructions to take twice daily. With this dosing, should help him with hissymptoms and would reduce the need to use the as needed prescriptions (duoneb and albuterol inhaler). Patient says that he feels better after using the inhaler which he admitted uses more than prescribed. Patient states he is partially paying for a trip out of the country and wants to have extra ofeach of his meds to have with him. Advised perhaps he should instead use some of the funds for his trip towards the Wixela inhaler. I explained to the patient that Dr. Brownlee will not send any more prescriptions for duoneb solution as he already has a box at home (patient admitted this during the call), and he is using them incorrectly and it would be unethical for him to send more of this. He needs to take his medications as prescribed and not overuse them. Should keep his appointment next Friday 12/[address] Brownlee to discuss his options going forward. Patient asked if there was anything I could say to Dr. Brownlee to change his mind. I advised that it has nothing to do with changing a mind - it is unethical and poor patient care to prescribe medications inappropriately based on their condition and for misuse. Patient asked if he could get Incruse instead which I reviewed that this was previously prescribed in May 2023 and he said it was too expensive. I said that the Wixela is the cheapest inhaler he can get at this time and already have a prescription for at his pharmacy. I explained that if he continues to call asking for more duoneb solution, he will not send any. He needs to be seen before any changes are made. Iraida Sanabria RN on 12/05/2023 at 1:58 PM * Telephone Encounter - Dino Ponce RN - 12/05/2023 10:00 AM CDT Called patient pharmacy to follow-up on cost of Wixela. Rx was refilled per patient request on 12/02/23. Spoke to pharmacist who reported that patient's Wixela would cost $47 to fill. This is the cheapest option for a maintenance inhaler. Patient has been given multiple refills of albuterol rescue inhaler and has been instructed many times that refills of Duoneb solutions would be discussed at upcoming appointment with Dr Brownlee on 12/16/23. Dr Brownlee has noted that he will not be refilling Duonebsas patient has been misusing medication. Dino Ponce, RN * Telephone Encounter - Kizzy Carey - 12/05/2023 9:04 AM CDT The patient said he can't afford the medication sent 12/01, he needs the albuterol nebulizer solution prior to leaving town this , please call to address concerns thank you.. * Telephone Encounter - Emily Dos Santos - 12/02/2023 4:[address] [facility] Phone Message May a detailed message be left on voicemail: yes Reason for Call: Other: Pt called and stated he need the nebulizer piror to going out of the country. Per pt he stated that the provider prescribed him with a new inhaler but that one is too expensive and therefore he would like for care team to connect with him regarding getting a nebulizer. Please advise. Thank you Action Taken: Other: Pulm Travel Screening: Not Applicable Date of Service: documented in this encounter Plan of Treatment Upcoming Encounters Date Type Department Care Team (Late st Contact Info) Description 02/01/2024 3:00 PM MACHINE II TRIMMER Office Visit [address] [place] [phone] Manuel Ahn, OD 8613 [facility] [place] [address] 02/02/2024 1:30 PM MACHINE II TRIMMER Therapy Visit [facility] [address] [facility] [address] [place] [phone] Alicja Roldan, OT 909 [place] [address] 02/05/2024 8:00 PM MACHINE II TRIMMER Therapy Visit [facility] [place] 6363 [facility] 103 [place] [phone] 02/13/2024 4:30 PM MACHINE II TRIMMER Oncology Visit [facility] 909 [place] [phone] Marian Agustin, ELECTRICIAN SOUND [facility] 420 [facility] 207 [place] [address] 03/01/2024 7:00 AM MACHINE II TRIMMER Office Visit [facility] [address] [place] [phone] Estella Hassan, [facility] 3033 [place] [address] 03/23/2024 2:00 PM MACHINE II TRIMMER Office Visit [facility] [address] [place] [address] [place] [phone] Lizet Mann PA-C 717 [place], [place] [address] 03/29/2024 3:30 PM MACHINE II TRIMMER Office Visit [facility] 2945 [facility] [address] [place] [phone] Hakeem Chacko MBBS 2945 [place] [address] 05/03/2024 3:00 PM MACHINE II TRIMMER Office Visit [address] [phone] Gaurav Valenzuela, [facility] [address] [place] [address] 106 [place] [address] 05/22/2024 10:30 AM CDT Office Visit [facility] [address] [place] [phone] Estella Hassan, [facility] 3033 [place] [address] 05/22/2024 11:30 AM CDT Office Visit [address] [address] [place] [address] [place] [address] [phone] documented as of this encounter Goals Goal [...] No Mitra Kendall LSW Note: Updated on 3/14/23 Barriers: Currently not working.Doesn't have insurance Strengths: Getting SSD. Patient expressed understanding of goal: Action steps to achieve this goal: 1. I will apply for unemployment. Decided not to 2. I will explore my options for health insurance by looking in to [employer] and talking with a FRW. Completed 3. I will look for a new job and will access resources that the [employer] offers. . Sarted new job 4. Continue [...] documented as of this encounter Care Teams Web Development Manager Relationship Specialty [place] [address] [place] [address] PCP - General Family Practice 07/11/14 [place] [address] [place] [address] Assigned PCP 12/16/11 Christy Campuzano PA-C [address] [place] [address] 050472 Referring Physician Family Medicine 04/22/20 Hans Cannon MD [address] [place] [address] 434492 Resident Pulmonary Disease 04/22/20 Burt Jovel MD [address] [place] [address] 777072 Internal Medicine 05/08/20 12/13/23 Estella Hassan, [facility] [address] [place] [address] Pharmacist Pharmacist 05/26/20 Elaina Moreno MD 909 [place], [place] [address] Cardiovascular & Thoracic Surgery 08/06/20 John Webb MD [address] [place] [address] Cardiovascular Disease 08/25/21 John Webb MD [address] [place] 271045 Cardiovascular Disease 08/25/21 [facility] [address] [place] [address] Assigned MTM Pharmacist 12/09/21 Lindsay Carey OD [address] [facility] [place] [address] Ophthalmology 01/29/22 Richard Kam MD [address] [place] [address] Assigned Musculoskeletal Provider 08/14/22 [place] [address] [phone] Assigned Neuroscience Provider 01/01/23 Rosemarie Mcdowell RN Car Spotter Diabetes Education 03/17/23 Ravi Brownlee MD [address] [place] [address] [phone] Assigned Heart and Vascular Provider 09/04/23 01/03/24 documented as of this encounter
--- OUTSIDE RECORDS SUMMARY | 2024-01-31 20:05 | XMS_ITS | Encounter Summary ---
Author Organization [facility] Address [address] [place] [address] Care Team Providers Care Cardiology Rn Name Role Phone Wendi Glez MD Primary Care Provider [phone] Wendi Glez MD Unavailable Christy Campuzano PA-C Unavailable [phone] Hans Cannon MD Unavailable Burt Jovel MD Unavailable Estella Hassan [facility] Unavailable Josh Cordero MD, Madhuri Unavailable [phone] John Webb MD Unavailable John Webb MD Unavailable Estella Hassan [facility] Unavailable [phone] Lindsay Carey OD Unavailable [phone] Richard Kam MD Unavailable Gaby Vila DO Unavailable [phone] Rosemarie Mcdowell RN Unavailable Ravi Brownlee MD Unavailable [phone] Reason for Visit * Reason Onset Date Comments Colonoscopy 12/06/2023 Screening Encounter Details Date Type Department Care Team (Late st Contact Info) Description 12/06/2023 [facility] [address] 4th [place] [phone] Aditi Morales Colonoscopy (Screening) Social History Tobacco Use Types Packs/Day Years [...] week 10/20/2022 How often do you attend [facility] or religion services? More than 4 times per year 10/20/2022 Do you belong to any clubs o r organizations such as presybeterian groups, unions, fraternal or athletic groups, or [...] Answer Date Recorded PHQ-2 Score 1 10/13/2023 [facility] - Occupational Stress Questionnaire Answer [...] in an abandoned building, in an overnight nursing home, 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.) Yes 03/18/2023 Are you [...] on file Legal 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 PICKER AND PACKER Gender Identity Not on file Sexual Orientation Not on file Occupation Industry Job Start Date Job End Date Not on file Not on file Not on file Not on file documented as of this encounter Miscellaneous Notes * Telephone Encounter - Dana Estrada RN - 12/06/2023 12:35 PM CDT Pre car dumper operator helper Review Focused Assessments Asthma Severity Patient report and review of chart, indicate patient's asthma has resulted in two or more ED visitsand/or hospital admissions over the last year. (Hospital Only) Patient has had recent ER visit documenting asthma worsening with changing of temperatures. Past ERvisits not specific to asthma but given pt has noted worsening recommended hospital only. Scheduling Status & Recommendations Location Type: Hospital - Per curriculum advisory teacher. * Telephone Encounter - Aditi Morales - 12/06/2023 12:23 PM CDT Endoscopy Scheduling Screen Have you had any respiratory illness or flu-like symptoms in the last 10 days? No What is your communication preference for Instructions and/or Bowel Prep? email What insurance is in the chart? Other: [facility] Ordering/Referring Provider: WENDI GLEZ (If ordering provider performs procedure, schedule with ordering provider unless otherwise instructed. ) BMI: Estimated body mass index is 45.16 kg/m?? as calculated from the following: Height as of 11/11/23: 1.727 m (5' 8). Weight as of 11/25/23: 134.7 kg (297 lb). Sedation Ordered moderate sedation. If patient BMI > 50 do not schedule in [facility]. If patient BMI > 45 do not schedule at [facility]. Are you taking methadone or Suboxone? NO, No livestock farmers required. Have you been diagnosed and are being treated for severe PTSD or severe anxiety? NO, No livestock farmers required. antidepressant Are you taking any prescription medications for pain 3 or more times per week? NO, No livestock farmers required. Do you have a history of malignant hyperthermia? No (Females) Are you currently ? Have you been diagnosed or told you have pulmonary hypertension? No Do you have an LVAD? No Have you been told you have moderate to severe sleep apnea? No. Have you been told you have COPD, asthma, or any other lung disease? Yes What breathing problems do you have? Asthma Do you use home oxygen? No Have your breathing problems required an ED visit or hospitalization in the last year? Yes. (outreach team member required for scheduling unless scheduling in Hospital.) Do you have any heart conditions? Yes In the past year, have you had any hospitalizations for heart related issues including cardiomyopathy, heart attack, or stent placement? No Do you have any implantable devices in your body (pacemaker, ICD)? No Do you take nitroglycerine? No Have you ever had or are you waiting for an organ transplant? No. Continue scheduling, no site restrictions. Have you had a stroke or transient ischemic attack (TIA aka mini stroke in the last 6 months? No Have you been diagnosed with or been told you have cirrhosis of the liver? No. Are you currently on dialysis? No Do you need assistance transferring? No BMI: Estimated body mass index is 45.16 kg/m?? as calculated from the following: Height as of 11/11/23: 1.727 m (5' 8). Weight as of 11/25/23: 134.7 kg (297 lb). Is patients BMI > 40 and scheduling location [facility]? No Do you take an injectable or oral medication for weight loss or diabetes (excluding insulin)? Yes, hold time can be up to 7 days. Please consult with you prescribing provider to discuss endoscopy recommendations. (Please schedule at least 7 days out.) OZEMPIC & METFORMIN Do you take the medication Naltrexone? No Do you take blood thinners? No Prep Are you currently on dialysis or do you have chronic kidney disease? No Do you have a diagnosis of diabetes? Yes (Golytely Prep) Do you have a diagnosis of cystic fibrosis (CF)? No On a regular basis do you go 3 -5 days between bowel movements? No BMI > 40? Yes (Extended Prep) Preferred Pharmacy: [facility]/pharmacy #[id number] - [place], [place] - [address] [address] [address] [address] [facility] [address] Final Scheduling Details Procedure scheduled Colonoscopy PT IS CHECKING WITH ORTHO FIRST REGARDING LEFT WRIST PAIN & RECENT KNEE SURGERY. ALSO CHECKING ON PEDICURIST AVAILABILITY. documented in this encounter Plan of Treatment Upcoming Encounters Date Type Department Care Team (Late st Contact Info) Description 02/01/2024 3:00 PM PICKER AND PACKER Office Visit [address] [place] [phone] Manuel Ahn, [address] [place] [address] 02/02/2024 1:30 PM PICKER AND PACKER Therapy Visit [facility] [address] [facility] [address] [place] [phone] Alicja Roldan, OT [address] [place] [address] 02/05/2024 8:00 PM PICKER AND PACKER Therapy Visit [facility] [address] [facility] 103 [place] [phone] 02/13/2024 4:30 PM PICKER AND PACKER Oncology Visit [facility] 909 [place] [phone] Marian Agustin, [facility] 420 [facility] 207 [place] [address] 03/01/2024 7:00 AM PICKER AND PACKER Office Visit [facility] [address] [place] [phone] Estella Hassan, [facility] [address] [place] [address] 03/23/2024 2:00 PM PICKER AND PACKER Office Visit [facility] [address] [place] [address] [place] [phone] Lizet Mann PA-C 717 [place] [address] 03/29/2024 3:30 PM PICKER AND PACKER Office Visit [facility] 2945 [facility] 200 [place] [phone] Hakeem hCacko MBBS 2945 [place] [address] 05/03/2024 3:00 PM PICKER AND PACKER Office Visit [facility] [place] [address] [place] [phone] Gaurav Valenzuela, [place] [facility] [employer]NEY[employer]OL AND DIE MAKER [address] [place] [address] 106 [place] [address] 05/22/2024 10:30 AM CDT Office Visit [facility] [address] [place] [phone] Estella Hassan, [facility] [address] [place] [address] 05/22/2024 11:30 AM CDT Office Visit [facility] [address] [place] [phone] [place] [address] [place], [place] [phone] documented as of this encounter Goals Goal [...] for health insurance by looking in to [employer] and talking with a FRW. Completed 3. I will look for a new job and will access resources that the [employer] offers. . Sarted new job 4. Continue [...] documented as of this encounter Care Teams Cardiology Rn Relationship Specialty [place] [address] [place] [address] PCP - General Family Practice 07/11/14 [place] [address] [place] [address] Assigned PCP 12/16/11 Christy Campuzano PA-C [address] [place] [address] Referring Physician Family Medicine 04/22/20 Hans Cannon MD [address] [place] [address] Resident Pulmonary Disease 04/22/20 Burt Jovel MD [address] [place] [address] Internal Medicine 05/08/20 12/13/23 Estella Hassan, [facility] [address] [place] [address] Pharmacist Pharmacist 05/26/20 Elaina Moreno MD [address] [place] [address] Cardiovascular & Thoracic Surgery 08/06/20 John Webb MD [address] [place] [address] Cardiovascular Disease 08/25/21 John Webb MD [address] [place] [address] Cardiovascular Disease 08/25/21 [facility] [address] [place] [address] Assigned MTM Pharmacist 12/09/21 Lindsay Carey OD [address] [facility] [place] [address] Ophthalmology 01/29/22 Richard Kam MD [address] [place] [address] 065145 Assigned Musculoskeletal Provider 08/14/22 [place] [address] [id number] Assigned Neuroscience Provider 01/01/23 Rosemarie Mcdowell RN Restaurant District Manager Diabetes Education 03/17/23 Ravi Brownlee MD [address] [address] Assigned Heart and Vascular Provider 09/04/23 01/03/24 documented as of this encounter
--- OUTSIDE RECORDS SUMMARY | 2024-01-31 20:06 | XMS_ITS | Encounter Summary ---
Author Organization [facility] Address [address] [place] [address] Care Team Providers Care Water Purification Chemist Name Role Phone Va Glez MD Primary Care Provider Va Glez MD Unavailable Christy Campuzano PA-C Unavailable Hans Cannon MD Unavailable Burt Jovel MD Unavailable [phone] Estella Hassan [facility] Unavailable Josh Cordero MD, Madhuri Unavailable [phone] John Webb MD Unavailable [phone] John Webb MD Unavailable [phone] Estella Hassan [facility] Unavailable [phone] Lindsay Carey OD Unavailable [phone] Richard Kam MD Unavailable Gaby Vila DO Unavailable Rosemarie Mcdowell RN Unavailable [phone] Ravi Brownlee MD Unavailable Encounter Details Date Type Department Care Team (Latest Contact Info) Description 11/08/2023 Travel Social History Tobacco Use Types Packs/Day [...] week 10/20/2022 How often do you attend [facility] or bahai services? 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 Gender Identity Not on file Sexual Orientation Not on file Occupation Industry Job Start Date Job End Date Not on file Not on file Not on file Not on file documented as of this encounter Plan of Treatment Upcoming Encounters Date Type Department Care Team (Late st Contact Info) Description 02/01/2024 3:00 PM SALES REPRESENTATIVE HEALTH INSURANCE Office Visit [facility] [address] [facility] [place] [phone] Manuel Ahn, [address] [facility] [place] [address] 02/02/2024 1:30 PM SALES REPRESENTATIVE HEALTH INSURANCE Therapy Visit [facility] [address] [place] [address] Alicja Roldan, OT 909 [place] [address] 02/05/2024 8:00 PM SALES REPRESENTATIVE HEALTH INSURANCE Therapy Visit [facility] 6363 [facility] 103 [place] [phone] 02/13/2024 4:30 PM SALES REPRESENTATIVE HEALTH INSURANCE Oncology Visit [facility] 909 [place] [phone] Marian Agustin, [facility] 420 [facility] 207 [place], [place] 4[address] 03/01/2024 7:00 AM SALES REPRESENTATIVE HEALTH INSURANCE Office Visit [facility] [address] [place] [phone] Estella Hassan, [facility] 3033 [place] [address] 03/23/2024 2:00 PM SALES REPRESENTATIVE HEALTH INSURANCE Office Visit [facility] [address] [place] [phone] Lizet Mann PA-C 717 [place] [address] 03/29/2024 3:30 PM SALES REPRESENTATIVE HEALTH INSURANCE Office Visit [facility] 2945 [facility] 200 [place] [phone] Hakeem Chacko MBBS 2945 [place] [address] 05/03/2024 3:00 PM SALES REPRESENTATIVE HEALTH INSURANCE Office Visit [facility] [address] [place] [phone] Gaurav Valenzuela, FULL SERVICE VENDING DRIVER [facility] [address] [place] [address] 05/22/2024 10:30 AM CDT Office Visit [facility] [address] [place] [phone] Estella Hasasn, [facility] [address] [place] [address] 05/22/2024 11:30 AM CDT Office Visit [facility] [address] [place] [phone] [place] [address] [place] [address] documented as of this encounter [...] for health insurance by looking in to [employer] and talking with a FRW. Completed 3. I will look for a new job and will access resources that the [employer] offers. . Sarted new job 4. Continue to use Single Care to reduce the cost of my prescriptions. Create an action plan to increase financial stability Care Plan Patient expresses financial resource strain No Josefina Paetl Establish Regular Follow-Ups with PCP Care Plan [...] documented as of this encounter Care Teams Water Purification Chemist Relationship Specialty [place] [address] [place] [address] PCP - General Family Practice 07/11/14 [place] [address] [place] [address] Assigned PCP 12/16/11 Christy Campuzano PA-C [address] [place] [address] 828142 Referring Physician Family Medicine 04/22/20 Hans Cannon MD [address] [place] [address] 194282 Resident Pulmonary Disease 04/22/20 Burt Jovel MD [address] [place] [address] [phone] Internal Medicine 05/08/20 12/13/23 Estella Hassan, [facility] [address] [place] [address] Pharmacist Pharmacist 05/26/20 Elaina Moreno MD 909 [place], [place] 838975 Cardiovascular & Thoracic Surgery 08/06/20 John Webb MD [address] [place] 74[address] Cardiovascular Disease 08/25/21 John Webb MD [address] [place] 924635 Cardiovascular Disease 08/25/21 Estella Hassan, [facility] 30[address] [place], [place] 162896 Assigned MTM Pharmacist 12/09/21 Lindsay Carey OD [address] [facility] [place] [address] Ophthalmology 01/29/22 Richard Kam MD [address] [place] [address] Assigned Musculoskeletal Provider 08/14/22 [place] [address] [place], [address] [address] Assigned Neuroscience Provider 01/01/23 Rosemarie Mcdowell, RN Filling Station Laborer Diabetes Education 03/17/23 Ravi Brownlee MD [address] [place] [address] 276 [place], [place] 218115 Assigned Heart and Vascular Provider 09/04/23 01/03/24 documented as of this encounter
--- OUTSIDE RECORDS SUMMARY | 2024-01-31 20:06 | XMS_ITS | Encounter Summary ---
Author Organization [facility] Address [address] [place] [address] Care Team Providers Care Operations Forester Name Role Phone Va Glez MD Primary Care Provider Va Glez MD Unavailable Christy Campuzano PA-C Unavailable Hans Cannon MD Unavailable Burt Jovel MD Unavailable [phone] Estella Hassan [facility] Unavailable Josh Cordero MD, Madhuri Unavailable [phone] John Webb MD Unavailable [phone] John Webb MD Unavailable Estella Hassan [facility] Unavailable [phone] Lindsay Carey OD Unavailable [phone] Richard Kam MD Unavailable Gaby Vila DO Unavailable Rosemarie Mcdowell RN Unavailable Ravi Brownlee MD Unavailable Reason for Visit * Reason Onset Date Comments Medication Question 11/24/2023 albuterol (P ROAIR HFA/PROVENTIL HFA/VENTOLIN HFA) 108 (90 Base) MCG/ACT inhaler Encounter Details Date Type Department Care Team (Late st Contact Info) Description 11/24/2023 Telephone [facility] [address] [address] Ravi Brownlee MD [address] [facility] [address] [place] [address] Medication Question (albuterol (PROAIR HFA/PROVENTIL HFA/VENTOLIN HFA) 108 (90 Base) MCG/ACT inhaler) Social History Tobacco Use Types Packs/Day Years [...] How often do you attend chur or sabianism services? More than 4 times per year 10/20/2022 Do you belong to any clubs o r organizations such as lutheran groups, unions, fraternal or athletic groups, or [...] Answer Date Recorded PHQ-2 Score 1 10/13/2023 [facility] [place] of Occupat ional Health - Occupational Stress [...] in an overnight correction, 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.) Yes 03/18/2023 Are you worried [...] on file Legal 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 SAMPLING EXPERT Gender Identity Not on file Sexual Orientation Not on file Occupation Industry Job Start Date Job End Date Not on file Not on file Not on file Not on file documented as of this encounter Miscellaneous Notes * Telephone Encounter - Estella Hassan RPH - 11/25/2023 4:20 PM CDT Saw patient at his PCP office. After a lot of questioning, Sumeet admitted to me that he sometimes uses his Duonebs 5 times a day but usually has been limiting to four times daily or less. He is needing his nebulizer more frequently due to only using Wixela and not Incruse due to cost. 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 He also doesn't use his Wixela twice daily everyday due to trying to ration out the medication. Unfortunately he does not qualify for patient assistance programs so is stuck paying his higher copays for these. Are there any other nebulizers we canadd on for him since nebs are much more affordable for him than the inhalers? Estella Hassan, PharmD, BCACP Medication Therapy Management Provider, [facility] * Telephone Encounter - Dino Ponce RN - 11/24/2023 3:51 PM CDT Received update from call center staff that patient lost new inhaler when fishing. Patient had inhaler in shirt pocket and it fell in the water when he leaned over. Dr Brownlee is okay with providing addition HFA inhaler as pharmacy confirmed that patient does not have additional fills on file. Dr Brownlee will not be refilling Duonebs as patient has been misusing Duonebs and is avoiding questions about quantity of usage. Patient should use maintenance inhaler regimen (Advair+Incruse) Update provided to patient that inhaler regimen should be followed and he should notify clinic if he is unable to obtain maintenance inhalers. Dino Ponce RN * Telephone Encounter - Emily Dos Santos - 11/24/2023 11:[address] [facility] Call Center Phone Message May a detailed message be left on voicemail: yes Reason for Call: Other: Pt stated he need a new medication albuterol (PROAIR HFA/PROVENTIL HFA/VENTOLIN HFA) 108 (90 Base) MCG/ACT inhaler. Pt stated he understand he just receive the medication but he accidentally drop it into the water. Pt also stated if it is possible for provider to prescribe pt with a neb solution since pt is running out. Per pt he request that Ifeanyi call him but he is okay with anyone else from the care team. Per pt. Please follow-up regarding his concern. Thank you Action Taken: Other: Pulm Travel Screening: Not Applicable Date of Service: documented in this encounter Plan of Treatment Upcoming Encounters Date Type Department Care Team (Late st Contact Info) Description 02/01/2024 3:00 PM SAMPLING EXPERT Office Visit [address] [phone] Manuel Ahn, [address] [place] [address] 02/02/2024 1:30 PM SAMPLING EXPERT Therapy Visit [facility] [place] [address] [facility] [address] [place] [phone] Alicja Roldan, OT [address] [place] [address] 02/05/2024 8:00 PM SAMPLING EXPERT Therapy Visit [facility] [place] [address] [place] [phone] 02/13/2024 4:30 PM SAMPLING EXPERT [facility]cology [facility] [address] [place] [address] Marian Agustin, [facility] [address] [facility] [address] [place] [address] 03/01/2024 7:00 AM SAMPLING EXPERT Office Visit [facility] [address] [place] [phone] Estella Hassan, [facility] [address] [place] [address] 03/23/2024 2:00 PM SAMPLING EXPERT Office Visit [facility] [address] [place] [address] [place] [phone] Lizet Mann PA-C [address] [place] [address] 03/29/2024 3:30 PM SAMPLING EXPERT Office Visit [facility] [address] [facility] 200 [place] [phone] Hakeem Chacko MBBS [address] [place] [address] 05/03/2024 3:00 PM SAMPLING EXPERT Office Visit [address] [phone] Gaurav Valenzuela, CARRIAGE OPERATOR [facility] [address] [place] [address] 05/22/2024 10:30 AM CDT Office Visit [facility] [address] [place] [phone] Estella Hassan, [facility] [address] [place] [address] 05/22/2024 11:30 AM CDT Office Visit [address] [phone] [place] [address] [place] [address] documented as of this encounter Goals Goal [...] for health insurance by looking in to [employer] and talking with a FRW. Completed 3. I will look for a new job and will access resources that the [employer] offers. . Sarted new job 4. [...] Education Needed to Optimize Self-Care Behaviors No Zenen, Rosemarie A, RN Note: Reviewed healthy eating Being Active [...] SOB (shortness of breath) Shortness of breath documented in this encounter Additional Health Concerns [...] documented as of this encounter Care Teams Operations Forester Relationship Specialty [place] [address] [place] [address] PCP - General Family Practice 07/11/14 [place] [address] [place] [address] Assigned PCP 12/16/11 Christy Campuzano PA-C [address] [place] [address] Referring Physician Family Medicine 04/22/20 Hans Cannon MD [address] [place] [address] Resident Pulmonary Disease 04/22/20 Burt Jovel MD [address] [place] [address] 133352 Internal Medicine 05/08/20 12/13/23 Estella Hassan, [facility] [address] [place], [place] [phone] Pharmacist Pharmacist 05/26/20 Elaina Moreno MD 9 [place] [address] Cardiovascular & Thoracic Surgery 08/06/20 John Webb MD [address] [address] Cardiovascular Disease 08/25/21 John Webb MD [address] [address] Cardiovascular Disease 08/25/21 Estella Hassan, [facility] [address] [place] [address] Assigned MTM Pharmacist 12/09/21 Lindsay Carey OD [address] [facility] [place] [address] Ophthalmology 01/29/22 Richard Kam MD [address] [place], [place] [phone] Assigned Musculoskeletal Provider 08/14/22 [place] [address] [place], [address] [phone] Assigned Neuroscience Provider 01/01/23 Rosemarie Mcdowell, RN Bakery Worker Diabetes Education 03/17/23 Ravi Brownlee MD [address] [place] [address] 276 [place], [place] 847[address] Assigned Heart and Vascular Provider 09/04/23 01/03/24 documented as of this encounter
--- OUTSIDE RECORDS SUMMARY | 2024-01-31 20:06 | XMS_ITS | Encounter Summary ---
Author Organization [facility] Address [address] [place] [address] Care Team Providers Care Mechanic And Welder Name Role Phone Va Glez MD Primary Care Provider Va Glez MD Unavailable Christy Campuzano PA-C Unavailable [phone] Hans Cannon MD Unavailable Burt Jovel MD Unavailable Estella Hassan [facility] Unavailable Josh Cordero MD, Madhuri Unavailable [phone] John Webb MD Unavailable [phone] John Webb MD Unavailable Estella Hassan [facility] Unavailable Lindsay Carey OD Unavailable Richard Kam MD Unavailable Gaby Vila DO Unavailable Rosemarie Mcdowell RN Unavailable Ravi Brownlee MD Unavailable Reason for Visit * Reason Onset Date Comments Refill Request 11/11/2023 ipratropium - al buterol 0.5 mg/2.5 mg/3 mL (DUONEB) 0.5-2.5 (3) MG/3ML neb solution Encounter Details Date Type Department Care Team (Late st Contact Info) Description 11/11/2023 Telephone [facility] [place] [phone] [place] [address] Ravi Brownlee MD [address] [facility] [address] [place] [address] Refill Request (ipratropium - albuterol 0.5 mg/2.5 mg/3 mL (DUONEB) 0.5-2.5 (3) MG/3ML neb solution /) Social History Tobacco Use Types [...] How often do you attend chur or denominational services? 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 Patient has 2 boxes of Duonebs still along with 2 albuterol inhalers available to him. Hema Willams RN * Telephone Encounter - Hema Willams RN - 11/17/2023 9:26 AM CDT Attempted to call patient to provide update. Was unable to LVM due to full mailbox. Hema Willams RN * Telephone Encounter - Hema Willams RN - 11/16/2023 11:28 AM CDT Called and spoke to patient to follow-up on request and inquire about adherence to maintenance inhaler regimen. Patient reports that he is using his Advair as ordered but has not started Incruse due to cost. Patient states he has been using a couple Duonebs daily. When asked to clarify amount that patient determines a couple is, patient states 1 in AM and PM and as needed throughout the day. Patient unable to give clear answer and was avoiding question. When asked about sx that patient experiences that prompt Duoneb use, patient states he is SOB, with occasional wheezing and anxious. Education was completed with patient that Duoneb could worsen anxiety. Patient was not receptive to educa tion. RN called pharmacy who confirmed that patient has no additional refills on Duoneb Rx sent on 09/21/23. Pharmacy confirmed patient does not have additional refills on albuterol HFA. Patient has never picked up Incruse and last Advair inhaler was picked up in early August. Message routed to Dr Brownlee, patient has follow-up appointment on 12/16/23. Hema Willams RN * Telephone Encounter - Paty Villegas - 11/11/2023 3:54 PM CDT Patient states he feels bad for how he spoke with the care team. He is requesting another call backplease. Thank you. * Telephone Encounter - Ursula Poe RN - 11/11/2023 3:[address] Brownlee, Given his last prescription was so recent and should still be good I do not think weshould refill this. Patient called and aware. Communications Coordinator again asked how he is using the Duoneb and patient cannot give an answer. Per the pharmacy, the patient should have medication at home as the pharmacy has given him multiple boxes at a time. Advised patient of the directions on the neb and again asked how he is taking it. Patient became upset, stated if he dies, it is on us, and hung up the phone. Communications Coordinator called and reported this interaction over the phone with Dr Brownlee. Ursula Poe RN * Telephone Encounter - Ursula Poe RN - 11/11/2023 3:08 PM CDT Duoneb Last Written Prescription Date: 09/12/23 Last Fill Quantity: 360ml, # refills: 3 Last office visit: Visit date not found ; last virtual visit: Visit date not found with prescribingprovider: Torrie Future Office Visit: 12/16/23 Pharmacy called and patient has used up all his refills. Pharmacist states use has been excessive and that the patient likes to arvind it. Call placed to the patient and he is unable to tell the engineering writer how much or when he is using it, except that he is out of medication and going out of town. His report of s/s changes with each questionasked. He reports SOB at all times and cassandra with activity. Admits to using it to calm his anxiety. Has not been using his rescue inhaler as he states he does not like to use it. Patient requesting a refill. Refill is pended. Ursula Poe RN * Telephone Encounter - Paty Villegas - 11/11/2023 2:53 PM CDT [facility] Call Center Phone Message May a detailed message be left on voicemail: yes Reason for Call: Medication Refill Request Has the patient contacted the pharmacy for the refill? Yes Name of medication being requested: ipratropium - albuterol 0.5 mg/2.5 mg/3 mL (DUONEB) 0.5-2.5 (3)MG/3ML neb solution Provider who prescribed the medication: Ravi Brownlee MD Pharmacy: [id number] [address] [address] Date medication is needed: ISABEL - Patient states he needs to refill this medication early, as he went through it more quickly while he was visiting [place]. Please call back to advise. Says its urgent as he is leaving town for the weekend. Thank you. Action Taken: Other: Pulm Travel Screening: Not Applicable Date of Service: 11/11/23 * Addendum Note - Ursula Poe RN - 11/11/2023 2:53 PM CDTAddended by: URSULA POE on: 11/11/2023 03:34 PM Modules accepted: Orders * Addendum Note - Hema Willams RN - 11/11/2023 2:53 PM CDTAddended by: HEMA WILLAMS on: 11/17/2023 09:27 AM Modules accepted: Orders documented in this encounter Plan of Treatment Upcoming Encounters Date Type Department Care Team (Late st Contact Info) Description 02/01/2024 3:00 PM DOG FOOD SHREDDER OPERATOR Office Visit [facility] [address] [place] [phone] Manuel Ahn, OD [address] [place] [address] 02/02/2024 1:30 PM DOG FOOD SHREDDER OPERATOR Therapy Visit [facility] [address] [facility] [address] [place] [phone] Alicja Roldan, OT 909 [place] [address] 02/05/2024 8:00 PM DOG FOOD SHREDDER OPERATOR Therapy Visit [facility] [place] [address] [facility] 103 [place] [phone] 02/13/2024 4:30 PM DOG FOOD SHREDDER OPERATOR [facility]cology [facility] [address] [place] [phone] Marian Agustin APRN [facility] [address] [facility] 207 [place] [address] 03/01/2024 7:00 AM DOG FOOD SHREDDER OPERATOR Office Visit [facility] [address] [place] [phone] Estella Hassan, [facility] [address] [place] [address] 03/23/2024 2:00 PM DOG FOOD SHREDDER OPERATOR Office Visit [facility] [address] [place] [phone] Lizet Mann PA-C 7[address] [place] [address] 03/29/2024 3:30 PM DOG FOOD SHREDDER OPERATOR Office Visit [facility] 2945 [facility] 200 [place] [address] Hakeem Chacko MBBS 2945 [place] [address] 05/03/2024 3:00 PM DOG FOOD SHREDDER OPERATOR Office Visit [facility] [place] [address] [place] [phone] Gaurav Valenzuela, BOTTLER HELPER [facility] [address] [place] [address] 05/22/2024 10:30 AM CDT Office Visit [address] [phone] Estella Hassan, [facility] [address] [place] [address] 05/22/2024 11:30 AM CDT Office Visit [facility] [address] [place] [phone] [place] [address] [place] [phone] documented as of this encounter Goals Goal Patient Goal Type Associated Problems Recent Progress Patient-Stated? Author Health Maintenance Care Plan HP GENERAL PROBLEM 100%( 023 10:17 AM CDT) No Mitra Kendall, LEARNING AND DEVELOPMENT COORDINATOR Note: Update on 05/25/22 Barriers: Currently without [...] for health insurance by looking in to [employer] and talking with a FRW. Completed 3. I will look for a new job and will access resources that the [employer] offers. . Sarted new job 4. Continue [...] documented as of this encounter Care Teams Mechanic And Welder Relationship Specialty [place] [address] [place] [address] PCP - General Family Practice 07/11/14 [place] [address] [place] [address] Assigned PCP 12/16/11 Christy Campuzano PA-C [address] [place] [address] Referring Physician Family Medicine 04/22/20 Hans Cannon MD [address] [place] [address] Resident Pulmonary Disease 04/22/20 Burt Jovel MD [address] [place] [address] Internal Medicine 05/08/20 12/13/23 Estella Hassan, [facility] [address] [place] [address] Pharmacist Pharmacist 05/26/20 Elaina Moreno MD [address] [place] [address] Cardiovascular & Thoracic Surgery 08/06/20 John Webb MD [address] [address] Cardiovascular Disease 08/25/21 John Webb MD [address] [address] Cardiovascular Disease 08/25/21 Estella Hassan, [facility] [address] [place] [address] Assigned MTM Pharmacist 12/09/21 Lindsay Carey OD [address] [facility] [place] [address] Ophthalmology 01/29/22 Richard Kam MD [address] [place], [place] [address] Assigned Musculoskeletal Provider 08/14/22 [place] [address] [facility], [address] [phone] Assigned Neuroscience Provider 01/01/23 Rosemarie Mcdowell, RN Bookkeeper Diabetes Education 03/17/23 Ravi Brownlee MD [address] [place] [address] 276 [place], [place] 24[address] Assigned Heart and Vascular Provider 09/04/23 01/03/24 documented as of this encounter
--- OUTSIDE RECORDS SUMMARY | 2024-01-31 20:06 | XMS_ITS | Encounter Summary ---
Author Organization [place] Address [address] [place] [address] Care Team Providers Care Grocery Manager Name Role Phone Va Glez MD Primary Care Provider [phone] Va Glez MD Unavailable Christy Campuzano PA-C Unavailable Hans Cannon MD Unavailable [phone] Burt Jovel MD Unavailable Estella Hassan [facility] Unavailable Josh Cordero MD, Madhuri Unavailable [phone] John Webb MD Unavailable John Webb MD Unavailable Estella Hassan [facility] Unavailable [phone] Lindsay Carey OD Unavailable Richard Kam MD Unavailable Gaby Vila DO Unavailable [phone] Rosemarie Mcdowell RN Unavailable [phone] Ravi Brownlee MD Unavailable Reason for Visit * Reason Onset Date Comments Refill Request 11/18/2023 ipratropium - al buterol 0.5 mg/2.5 mg/3 mL (DUONEB) 0.5-2.5 (3) MG/3ML neb solution Encounter Details Date Type Department Care Team (Late st Contact Info) Description 11/18/2023 Refill [facility] Specialty [address] 200 [place] [address] Ravi Brownlee MD [address] [facility] 276 [place] [address] Refill Request (ipratropium - albuterol 0.5 mg/2.5 mg/3 mL (DUONEB) 0.5-2.5 (3) MG/3ML neb solution) Social History Tobacco Use Types Packs/Day Years [...] How often do you attend chur or anabaptism services? 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 See TE dated 11/11/23 for update. Dino Ponce RN * Telephone Encounter - Josephine Aguilar MA - 11/18/2023 3:04 PM CDT Last Written Prescription Date: 09/12/2023 Last Fill Quantity: 360 ml, # refills: 3 Last office visit: 06/10/2023 ; last virtual visit: Visit date not found with prescribing provider: Future Office Visit: Next 5 appointments (look out 90 days) Nov 25, 2023 2:30 PM Pharmacist Visit with Estella Hassan RPH [facility] ([facility] ) [address] [place] [address] [phone] Dec 23, 2023 1:00 PM (Arrive by 12:40 PM) Annual Wellness Visit with Va Glez MD [facility] ([facility] ) [address] [place] [address] [phone] documented in this encounter Plan of Treatment Upcoming Encounters Date Type Department Care Team (Late st Contact Info) Description 02/01/2024 3:00 PM CONTRACTOR BUYER Office Visit [facility] [address] [place] [address] [place] [phone] Manuel Ahn, [address] [place] [address] 02/02/2024 1:30 PM CONTRACTOR BUYER Therapy Visit [facility] Rehabilitation [facility] [address] [facility] [address] [place] [phone] Alicja Roldan OT [address] [place] [address] 02/05/2024 8:00 PM CONTRACTOR BUYER Therapy Visit [facility] [place] [address] [facility] 103 [place] [phone] 02/13/2024 4:30 PM CONTRACTOR BUYER Oncology Visit [facility] 909 [place] [phone] Marian Agustin, [facility] [address] [facility] 207 [place] [address] 03/01/2024 7:00 AM CONTRACTOR BUYER Office Visit [facility] [address] [place] [phone] Estella Hassan, [facility] 3033 [place] [address] 03/23/2024 2:00 PM CONTRACTOR BUYER Office Visit [facility] [address] [place] [phone] Lizet Mann PA-C 717 [place] [address] 03/29/2024 3:30 PM CONTRACTOR BUYER Office Visit [facility] 2945 [facility] 200 [place] [phone] Hakeem Chacko MBBS 2945 [place] [address] 05/03/2024 3:00 PM CONTRACTOR BUYER Office Visit [facility] Sleep [facility] [address] [place] [phone] Gaurav Valenzuela, COMPTOMETRIST TRACK SUBWAY REPAIR SUPERVISOR [address] [facility] 106 [place] [address] 05/22/2024 10:30 AM CDT Office Visit [facility] [address] [place] [phone] Estella Hassan, [facility] [address] [place] [address] 05/22/2024 11:30 AM CDT Office Visit [address] [phone] [place] [address] [place], [place] [phone] documented as of this encounter Goals Goal [...] for health insurance by looking in to [employer] and talking with a FRW. Completed 3. I will look for a new job and will access resources that the [employer] offers. . Sarted new job 4. Continue [...] accurate information and submit it to the [facility]. 3. I will update CCC Team at outreach. HbA1C Not In Goal 04/28/2023 Diabetes Self-Management Edu cation Needed to Optimize Self-Care Behaviors 04/28/2023 Infection Onset Date Last Indicated Resolved Time Rule Out COVID-19 11/20/2023 11/20/2023 11/20/2023 6:43 PM CDT Assessment Noted Time PHQ-9 Depression Total Score: 4 10/13/19 24 3:39 PM CDT documented as of this encounter Care Teams Grocery Manager Relationship Specialty [place] [address] [place] [address] PCP - General Family Practice 07/11/14 [place] [address] [place] [address] Assigned PCP 12/16/11 Christy Campuzano PA-C [address] [place] [address] 616672 Referring Physician Family Medicine 04/22/20 Hans Cannon MD [address] [place] [address] Resident Pulmonary Disease 04/22/20 Burt Jovel MD [address] [place] [address] [phone] Internal Medicine 05/08/20 12/13/23 Estella Hassan, [facility] [address] [place] [address] Pharmacist Pharmacist 05/26/20 Elaina Moreno MD [address] [place] [address] [phone] Cardiovascular & Thoracic Surgery 08/06/20 John Webb MD [address] 288635 Cardiovascular Disease 08/25/21 John Webb MD [address] 838155 Cardiovascular Disease 08/25/21 [facility] [address] [place] [address] Assigned MTM Pharmacist 12/09/21 Lindsay Carey OD [address] [facility] [address] Ophthalmology 01/29/22 Richard Kam MD [address] [place] [address] Assigned Musculoskeletal Provider 08/14/22 [place] [address] [place] [address] 086577 Assigned Neuroscience Provider 01/01/23 Rosemarie Mcdowell RN New Car Get Ready Mechanic Diabetes Education 03/17/23 Ravi Brownlee MD [address] [place] [address] Assigned Heart and Vascular Provider 09/04/23 01/03/24 documented as of this encounter
--- OUTSIDE RECORDS SUMMARY | 2024-01-31 20:06 | XMS_ITS | Encounter Summary ---
Author Organization [place] Address [address] [place] [address] Care Team Providers Care Foreign Diplomat Name Role Phone Va Glez MD Primary Care Provider Va Glez MD Unavailable Christy Campuzano PA-C Unavailable Hans Cannon MD Unavailable [phone] Burt Jovel MD Unavailable [phone] Estella Hassan [facility] Unavailable Josh Cordero MD, Madhuri Unavailable [phone] John Webb MD Unavailable John Webb MD Unavailable [phone] Estella Hassan [facility] Unavailable [phone] Lindsay Carey OD Unavailable Richard Kam MD Unavailable Gaby Vila DO Unavailable Rosemarie Mcdowell RN Unavailable Ravi Brownlee MD Unavailable Reason for Visit * Reason Onset Date Comments Patient Request 11/23/2023 Encounter Details Date Type Department Care Team (Late st Contact Info) Description 11/23/[address] [place] [phone] Kerry Bernal RN Patient Request Social History [...] How often do you attend chur or yazidism services? 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 Gender Identity Not on file Sexual Orientation Not on file Occupation Industry Job Start Date Job End Date Not on file Not on file Not on file Not on file documented as of this encounter Miscellaneous Notes * Telephone Encounter - Kerry Bernal RN - 11/24/2023 9:04 AM CDT RN spoke to patient He was calling to confirm that he will be able to come to the scheduled visit with Estella SORIANO on 11/25/2023, he shifted his other appointment that day RN advised patient that the covid vaccines are now available at the [facility] pharmacy, patient states they also have at [facility] He will check in with one of the pharmacies to get the vaccine Patient states he has already gotten the influenza vaccine at [facility], patient asked to find out the type of vaccine and date and call back so we can add into the system, he agrees to do this Jyothi Lozada [facility] * Telephone Encounter - Kerry Bernal RN - 11/23/2023 11:18 AM CDT Attempt #1 to return call to patient, VM full and unable to leave message Jyothi Lozdaa [facility] * Telephone Encounter - Kerry Bernal RN - 11/23/2023 10:22 AM CDT Patient left a message on requesting return call (did not specify what it was regarding, howeveradvised it was not urgent and no hurry) Jyothi Lozada [facility] documented in this encounter Plan of Treatment Upcoming Encounters Date Type Department Care Team (Late st Contact Info) Description 02/01/2024 3:00 PM LABORER [employer]ARM Office Visit [facility] [address] [place] [phone] Manuel Ahn, [address] [place] [address] 02/02/2024 1:30 PM LABORER [employer]ARM Therapy Visit [facility] [address] [facility] [address] [place] [address] Alicja Roldan, OT 909 [place] [address] 02/05/2024 8:00 PM LABORER [employer] Therapy Visit [facility] [place] 6[address] [facility] 103 [place] [phone] 02/13/2024 4:30 PM LABORER [employer]ARM Oncology Visit [facility] 909 [place] [phone] Marian Agustin, NURSING PROGRAM MANAGER APPLICATIONS ENGINEER MANUFACTURING 420 [facility] 207 [place] [address] 03/01/2024 7:00 AM LABORER [employer] Office Visit [facility] [address] [place] [phone] Estella Hassan, [facility] 3033 [place] [address] 03/23/2024 2:00 PM [employer]ORER [employer] Office Visit [facility] [address] [place] [phone] Lizet Mann PA-C 717 [place] [address] 03/29/2024 3:30 PM LABORER [employer] Office Visit [facility] 2945 [facility] [address] [place] [phone] Hakeem Chacko MBBS 2945 [place] [address] 05/03/2024 3:00 PM LABORER [employer]ARM Office Visit [facility] Sleep [facility] [address] [place] [phone] Gaurav Valenzuela, NURSING PROGRAM MANAGER DISPATCHER REFINERY [address] [place] [address] [place] 106 [place] [address] 05/22/2024 10:30 AM CDT Office Visit [facility] [address] [place] [address] Estella Hassan, [facility] [address] [place] [address] 05/22/2024 11:30 AM CDT Office Visit [facility] [address] [place] [address] [place] [address] [place] [address] documented as of this encounter [...] for health insurance by looking in to [place] and talking with a FRW. Completed 3. I will look for a new job and will access resources that the [employer] offers. . Sarted new job 4. [...] documented as of this encounter Care Teams Foreign Diplomat Relationship Specialty [place] [address] [place] [address] PCP - General Family Practice 07/11/14 [place] [address] [place] [address] Assigned PCP 12/16/11 Christy Campuzano PA-C [address] [place] [address] [phone] Referring Physician Family Medicine 04/22/20 Hans Cannon MD [address] [place] [address] 565402 Resident Pulmonary Disease 04/22/20 Burt Jovel MD [address] [place] [address] [phone] Internal Medicine 05/08/20 12/13/23 Estella Hassan, [facility] 30[address] [place], [place] [phone] Pharmacist Pharmacist 05/26/20 Elaina Moreno MD [address] [place] [address] Cardiovascular & Thoracic Surgery 08/06/20 John Webb MD [address] [address] Cardiovascular Disease 08/25/21 John Webb MD [address] [address] Cardiovascular Disease 08/25/21 Estella Hassan, [facility] 30[address] [place] [address] Assigned MTM Pharmacist 12/09/21 Lindsay Carey OD [address] [facility] [place] [address] Ophthalmology 01/29/22 Richard Kam MD 500 [place], [place] 103855 Assigned Musculoskeletal Provider 08/14/22 [place] [address] [place], [address] 305327 Assigned Neuroscience Provider 01/01/23 Rosemarie Mcdowell, RN Tax Director Diabetes Education 03/17/23 Ravi Brownlee MD [address] [place] [address] [phone] Assigned Heart and Vascular Provider 09/04/23 01/03/24 documented as of this encounter
--- OUTSIDE RECORDS SUMMARY | 2024-01-31 20:06 | XMS_ITS | Encounter Summary ---
Author Organization [facility] Address [address] [place] [address] Care Team Providers Care Supervisor Typesetting Name Role Phone Va Glez MD Primary Care Provider Va Glez MD Unavailable Christy Campuzano PA-C Unavailable Hans Cannon MD Unavailable Burt Jovel MD Unavailable [phone] Estella Hassan [facility] Unavailable Josh Cordero MD, Madhuri Unavailable [phone] John Webb MD Unavailable John Webb MD Unavailable Estella Hassan [facility] Unavailable Lindsay Carey OD Unavailable Richard Kam MD Unavailable Gaby Vila DO Unavailable Rosemarie Mcdowell RN Unavailable Ravi Brownlee MD Unavailable Reason for Visit * Reason Comments stomach issues 64 yo M presents wit h the following complaint awoke with nausea, diarrhea upper back pain jabbing , headache Encounter Details Date Type Department Care Team (Late st Contact Info) Description 11/20/2023 10:10 AM CDT Office Visit [facility] [address] [place] [address] Linda Hanson, NESSA ADMINISTRATIVE ACCOUNTANT [address] [facility] [address] [address] Nausea (Primary Dx); Diarrhea, unspecified type; Acute bilateral thoracic back pain; Type 2 diabetes mellitus with hyperglycemia, without long-term current use of insulin (H) Social History Tobacco Use Types Packs/Day [...] How often do you attend chur or jainism services? 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 Gender Identity Not on file Sexual Orientation Not on file Occupation Industry Job Start Date Job End Date Not on file Not on file Not on file Not on file documented as of this encounter Last Filed Vital Signs Vital Sign Reading Time Taken Comments Blood Pressure 135/88 11/20/2023 10:26 AM CDT Pulse 86 11/20/2023 10:26 AM CDT Temperature 36.6 C (97.8 F) 11/20/2023 10:26 AM CDT Respiratory Rate 17 11/20/2023 10:2 6 AM CDT Oxygen Saturation 95% 11/20/2023 10: 26 AM CDT Inhaled Oxygen Concentration - - Weight 134.5 kg (296 lb 9.6 oz) 024 10:26 AM CDT Height - - Body Mass Index 45.1 11/11/2023 1:04 PM CDT documented in this encounter Patient Instructions * Patient Instructions* Linda Hanson APRN ADMINISTRATIVE ACCOUNTANT - 11/20/2023 10:10 AM CDT Images from the original note were not included. [place] diet; soup, toast, scramble eggs, push fluids Monitor glucose Discharge Instructions for COVID-19 Patients You were tested for COVID-19. Your result was positive. This means you do have COVID-19. Follow thesteps below. If you were tested for an upcoming treatment (procedure), you should also contact yourcare team for next steps. How can I take care of myself at home? Get lots of rest. Drink extra fluids (unless a doctor has told you not to). Take acetaminophen (Tylenol) for fever or pain. If you have liver or kidney problems, first ask your care team if it's safe to take acetaminophen. Adults can take either: 650 mg (two 325 mg pills) every 4 to 6 hours as needed (but no more than 10 pills per day), OR??? 1,000 mg (two 500 mg pills) every 6 hours as needed (but no more than 6 pills per day). Note: Don't take more than 3,000 mg of acetaminophen (Tylenol) in one day. Acetaminophen is found in many medicines, even rubt-byo-fdzzjiu medicines. Read all labels to be sure you don't take too much. For children: Check the acetaminophen (Tylenol) bottle to find out the right dose based on their age or weight. Don't give children more than 1,625 mg of Tylenol in one day. Know when to call 911. Emergency warning signs include: Trouble breathing or shortness of breath Pain or pressure in the chest that doesn't go away Feeling confused like you haven't felt before, or not being able to wake up Bluish-colored lips or face If you have other health problems (like cancer, heart failure, an organ transplant, or severe kidney disease): Call your specialty clinic if you don't feel better in the next 2 days. How can I protect others? If you DO have symptoms: Stay home and away from others (self-isolate). You can go back to being with other people when: You've had no fever for 24 hours--without taking any medicine that reduces fever, AND Your other symptoms (such as a cough) are better. Wear a mask or face covering for 5 full days anytime you're around other people. If you DON'T have symptoms: Wear a mask or face covering for 5 full days anytime you're around other people. If you plan to visit a clinic or hospital, please check their guidelines before you arrive--healthcare sites may have different rules. If you were tested because you're going to have surgery or another treatment, contact your care team for next steps. During self-isolation Stay home until it's safe to be around others. At home, stay away from other people and pets. Or, wear a well-fitting mask when you need to be around others. Monitor your symptoms. If you have any emergency warning signs listed at the link (such as trouble breathing, chest pain that won't go away, or confusion that's new to you), then get emergency medical care right away. Stay in a separate room from other household members, if possible. Use a separate bathroom, if possible. Improve ventilation (air flow) at home, if possible. Don't share personal household items, like cups, towels, and utensils. Is there medicine to treat COVID-19? Yes, there are safe and effective medicines. They may make you feel better faster, keep you out of the hospital, and prevent . It's very important to take these medicines early in your illness before you get worse. Who should take this medicine? These treatments are for people who are not in the hospital, but who are at risk of getting very sick from COVID. This includes people who: Are over age 65 Are members of the BIP community (Black, indigenous, and people of color) Are overweight (body mass index is over 25) Are inactive (don't exercise) Are Smoke or vape (now or in the past) Have a disability Have any of the following health problems: diabetes, high blood pressure, cancer, heart problems, liver disease, lung disease, kidney disease, sickle cell disease, cystic fibrosis (CF), dementia and other neuro (brain) diseases, HIV, thalassemia, or tuberculosis (TB) Have ever had a stroke, organ transplant, or blood cell transplant Have a mental health problem or substance abuse disorder (drugs, alcohol) Have a weak immune system (are immuno-compromised) COVID medicines can affect the safety of other medicines you take. It's important to talk to your care team before you take any new medicines. Sometimes you'll need to make short-term changes to yourother medicines. What should I do if I have symptoms now and want to discuss treatments? Call your family clinic. Or, dial [phone] ( ) and say COVID when prompted, OR Go to [email or web address] (click Message Your Care Team), OR Request an appointment on [facility] When can I go back to work? You should NOT go back to work until you meet the guidelines on page 1. (See the How can I protectothers? section.) You don't need to be re-tested for COVID before going back to work. Studies showthat you won't spread the virus if it's been at least 10 days since your symptoms started (or 20 days if you have a weak immune system). Employers, schools, and daycares: This document serves as formal notice of medical guidelines before your employee or student can return to work or school. They must meet the guidelines in the How can I protect others? section on page 1 before going back in person. Where can I get more information? [employer] - About COVID-19: [email or web address] Preventing Spread of Respiratory Viruses when You're Sick: [email or web address] For informational purposes only. Not to replace the advice of your health care provider. Clinicallyreviewed by Dr. Chandan Wilder. Copyright ?? 2019 [facility]. All rights reserved. [employer] [id number] - REV 07/05. * Attachments The following attachments cannot be sent through Care Everywhere. * Nausea and Vomiting (Algerian) documented in this encounter Progress Notes * Linda Hanson APRN CNP - 11/20/2023 10:10 AM CDT Images from the original note were not included. Assessment & Plan 1. Nausea Pending covid test will self isolate until test result [place] diet will watch glucose closely - Symptomatic COVID-19 Virus (Coronavirus) by PCR Nose - Influenza A & B Antigen - Clinic Collect 2. Diarrhea, unspecified type 3. Acute bilateral thoracic back pain 4. Type 2 diabetes mellitus with hyperglycemia, without long-term current use of insulin (H) Home care reviewed. Patient verbalized understanding; will monitor symptoms closely. Reviewed s/e to medications. Follow up with primary care in 1 week if symptoms not improving. Handout given from [employer] and reviewed. Patient Instructions [place] diet; soup, toast, scramble eggs, push fluids Monitor glucose Discharge Instructions for COVID-19 Patients You were tested for COVID-19. Your result was positive. This means you do have COVID-19. Follow thesteps below. If you were tested for an upcoming treatment (procedure), you should also contact yourcare team for next steps. How can I take care of myself at home? Get lots of rest. Drink extra fluids (unless a doctor has told you not to). Take acetaminophen (Tylenol) for fever or pain. If you have liver or kidney problems, first ask your care team if it's safe to take acetaminophen. Adults can take either: 650 mg (two 325 mg pills) every 4 to 6 hours as needed (but no more than 10 pills per day), OR??? 1,000 mg (two 500 mg pills) every 6 hours as needed (but no more than 6 pills per day). Note: Don't take more than 3,000 mg of acetaminophen (Tylenol) in one day. Acetaminophen is found in many medicines, even mnvf-hjl-jekadrd medicines. Read all labels to be sure you don't take too much. For children: Check the acetaminophen (Tylenol) bottle to find out the right dose based on their age or weight. Don't give children more than 1,625 mg of Tylenol in one day. Know when to call 911. Emergency warning signs include: Trouble breathing or shortness of breath Pain or pressure in the chest that doesn't go away Feeling confused like you haven't felt before, or not being able to wake up Bluish-colored lips or face If you have other health problems (like cancer, heart failure, an organ transplant, or severe kidney disease): Call your specialty clinic if you don't feel better in the next 2 days. How can I protect others? If you DO have symptoms: Stay home and away from others (self-isolate). You can go back to being with other people when: You've had no fever for 24 hours--without taking any medicine that reduces fever, AND Your other symptoms (such as a cough) are better. Wear a mask or face covering for 5 full days anytime you're around other people. If you DON'T have symptoms: Wear a mask or face covering for 5 full days anytime you're around other people. If you plan to visit a clinic or hospital, please check their guidelines before you arrive--healthcare sites may have different rules. If you were tested because you're going to have surgery or another treatment, contact your care team for next steps. During self-isolation Stay home until it's safe to be around others. At home, stay away from other people and pets. Or, wear a well-fitting mask when you need to be around others. Monitor your symptoms. If you have any emergency warning signs listed at the link (such as trouble breathing, chest pain that won't go away, or confusion that's new to you), then get emergency medical care right away. Stay in a separate room from other household members, if possible. Use a separate bathroom, if possible. Improve ventilation (air flow) at home, if possible. Don't share personal household items, like cups, towels, and utensils. Is there medicine to treat COVID-19? Yes, there are safe and effective medicines. They may make you feel better faster, keep you out of the hospital, and prevent . It's very important to take these medicines early in your illness before you get worse. Who should take this medicine? These treatments are for people who are not in the hospital, but who are at risk of getting very sick from COVID. This includes people who: Are over age 65 Are members of the [place] community (Black, indigenous, and people of color) Are overweight (body mass index is over 25) Are inactive (don't exercise) Are Smoke or vape (now or in the past) Have a disability Have any of the following health problems: diabetes, high blood pressure, cancer, heart problems, liver disease, lung disease, kidney disease, sickle cell disease, cystic fibrosis (CF), dementia and other neuro (brain) diseases, HIV, thalassemia, or tuberculosis (TB) Have ever had a stroke, organ transplant, or blood cell transplant Have a mental health problem or substance abuse disorder (drugs, alcohol) Have a weak immune system (are immuno-compromised) COVID medicines can affect the safety of other medicines you take. It's important to talk to your care team before you take any new medicines. Sometimes you'll need to make short-term changes to yourother medicines. What should I do if I have symptoms now and want to discuss treatments? Call your family clinic. Or, dial [phone] ( ) and say COVID when prompted, OR Go to [email or web address] (click Message Your Care Team), OR Request an appointment on [facility] When can I go back to work? You should NOT go back to work until you meet the guidelines on page 1. (See the How can I protectothers? section.) You don't need to be re-tested for COVID before going back to work. Studies showthat you won't spread the virus if it's been at least 10 days since your symptoms started (or 20 days if you have a weak immune system). Employers, schools, and daycares: This document serves as formal notice of medical guidelines before your employee or student can return to work or school. They must meet the guidelines in the How can I protect others? section on page 1 before going back in person. Where can I get more information? [facility] - About COVID-19: [email or web address] Preventing Spread of Respiratory Viruses when You're Sick: enio.huseyin/CDCVirus For informational purposes only. Not to replace the advice of your health care provider. Clinicallyreviewed by Dr. Chandan Wilder. Copyright ?? 2019 [facility]. All rights reserved. [employer] [id number] - REV 07/05. Linda Hanson, NESSA ADMINISTRATIVE ACCOUNTANT [facility] [place] is a 63 year old male who presents to clinic today for the following health issues: Chief Complaint Patient presents with stomach issues 64 yo M presents with the following complaint awoke with nausea, diarrhea upper back pain jabbing ,headache HPI Patient presents to clinic with symptoms of nausea and 3 episodes of soft/diarrhea stools. He st a steak last night with potatoes and ice cream. Review of Systems Constitutional, HEENT, cardiovascular, pulmonary, gi and gu systems are negative, except as otherwise noted. Objective BP 135/88 Pulse 86 Temp 97.8 ??F (36.6 ??C) Resp 17 Wt 134.5 kg (296 lb 9.6 oz) SpO2 95% BMI 45.10 kg/m?? Physical Exam GENERAL: alert and no distress EYES: Eyes grossly normal to inspection, PERRL and conjunctivae and sclerae normal HENT: ear canals and TM's normal, nose and mouth without ulcers or lesions NECK: no adenopathy, no asymmetry, masses, or scars RESP: lungs clear to auscultation - no rales, rhonchi or wheezes CV: regular rate and rhythm, normal S1 S2, no S3 or S4, no murmur, click or rub, no peripheral edema ABDOMEN: soft, nontender, no hepatosplenomegaly, no masses and bowel sounds normal MS: no gross musculoskeletal defects noted, no edema BACK: no CVA tenderness, no paralumbar tenderness Results for orders placed or performed in visit on 11/20/23 Influenza A & B Antigen - Clinic Collect Status: Normal Specimen: Nose; Swab Result Value Ref Range Influenza A antigen Negative Negative Influenza B antigen Negative Negative Narrative Test results must be correlated with clinical data. If necessary, results should be confirmed by a molecular assay or viral culture. documented in this encounter Plan of Treatment Upcoming Encounters Date Type Department Care Team (Late st Contact Info) Description 02/01/2024 3:00 PM CONTRACT WRITER Office Visit [facility] [address] [place] [phone] Manuel Ahn, [address] [place] [address] 02/02/2024 1:30 PM CONTRACT WRITER Therapy Visit [facility] Special[facility] [place] [address] [facility] [address] [place] [phone] Alicja Roldan, OT [address] [place] [address] 02/05/2024 8:00 PM CONTRACT WRITER Therapy Visit [facility] [place] [address] [facility] [address] [place] [phone] 02/13/2024 4:30 PM CONTRACT WRITER [facility] [address] [place] [phone] Marian Agustin APRN [facility] [address] [facility] [address] [place], [place] [phone] 03/01/2024 7:00 AM CONTRACT WRITER Office Visit [facility] [address] [place] [phone] Estella Hassan, [facility] [address] [place], [place] [address] 03/23/2024 2:00 PM CONTRACT WRITER Office Visit [facility] [address] [place] [address] [place] [phone] Lizet Mann PA-C [address] [place] [address] 03/29/2024 3:30 PM CONTRACT WRITER Office Visit [facility] [address] [facility] [address] [place] [phone] Hakeem Chacko MBBS [address] [place] [address] 05/03/2024 3:00 PM CONTRACT WRITER Office Visit [facility] [address] [phone] Gaurav Valenzuela, TANK BUILDER HELPER [address] [address] 05/22/2024 10:30 AM CDT Office Visit [address] [phone] Estella Hassan, [facility] [address] [place] [address] 05/22/2024 11:30 AM CDT Office Visit [address] [phone] Va Glez MD [address] [place] [address] [phone] documented as of this encounter Goals Goal [...] for health insurance by looking in to [employer] and talking with a FRW. Completed 3. I will look for a new job and will access resources that the [employer] offers. . Sarted new job 4. Continue [...] Mcdowell RN documented as of this encounter Procedures Procedure Name Priority Date/Time Associated Diagnosis Comments COVID-19 VIRUS (CORONAVIRUS) BY PCR Today 11/20/2023 10:28 AM CDT Nausea INFLUENZA A/B ANTIGEN Routine 11/20/2023 10:28 AM CDT Nausea documented in this encounter Results * Influenza A & B Antigen - [...] MICRO GENERAL ORDERAB LES Final Result [facility] [place] [facility] [address] [facility] (no room number, 1st floor of clinic) [place] [address], [facility] * Symptomatic COVID-19 Virus (Coronavirus) by PCR Nose (11/20/2023 10:28 AM CDT) SARS CoV2 PCR Negative Negative 11/20/2023 6:43 PM CDT [facility] Comment:NEGATIVE: SARS-CoV-2 (COVID-19) RNA not detected, presumed negative. Swab NASAL STRUCTURE / Unknown Non-blood Collection / Unknown 11/20/2023 10:28 AM CDT 11/20/2023 11:25 AM CDT Narrative [facility] - 11/20/2023 6:43 PM CDT Testing was performed using the Aptima SARS-CoV-2 Assay on the [employer] Instrument System. Additional information about this Emergency Use Authorization (EUA) assay can be found via the Lab Guide. This test should be ordered for the detection of SARS-CoV-2 in individuals who meet SARS-CoV-2 clinical and/or epidemiological criteria. Test performance is unknown in asymptomatic patients. This test is for in vitro diagnostic use under the FDA EUA for laboratories certified under CLIA to perform high complexity testing. This test has not been [...] COVID-19. This test was validated by the [facility]. This laboratory is certified under the Clinical Laboratory Improvement Amendments of 1988 (CLIA-88) as qualified to perform high complexity laboratory testing. Emily Jenkins PA-C LAB - MICRO GENERAL ORDERAB LES Final Result [facility] Inf. Diseases Diag. Lab [address] [facility], [address] [place] [phone] documented in this encounter Visit Diagnoses Diagnosis Nausea- Primary Nausea alone Diarrhea, unspecified type Acute bilateral thoracic back pain Type 2 diabetes mellitus with hyperglycemia, without long-term current use of insulin (H) documented in this encounter Additional Health [...] Time PHQ-9 Depression Total Score: 4 10/13/19 3:39 PM CDT documented as of this encounter Care Teams Supervisor Typesetting Relationship Specialty [place] [address] [place] [address] PCP - General Family Practice 07/11/14 [place] [address] [place] [address] Assigned PCP 12/16/11 Christy Campuzano PA-C [address] [place] [address] [phone] Referring Physician Family Medicine 04/22/20 Hans Cannon MD [address] [place] [address] [phone] Resident Pulmonary Disease 04/22/20 Burt Jovel MD [address] [place] [address] [phone] Internal Medicine 05/08/20 12/13/23 Estella Hassan, [facility] [address] [place] [address] Pharmacist Pharmacist 05/26/20 Elaina Moreno MD [address] [place], [place] [phone] Cardiovascular & Thoracic Surgery 08/06/20 John Webb MD [address] [id number] Cardiovascular Disease 08/25/21 John Webb MD [address] [id number] Cardiovascular Disease 08/25/21 Estella Hassan, [facility] [address] [place], [place] [address] Assigned MTM Pharmacist 12/09/21 Lindsay Carey OD [address] [place] [address] Ophthalmology 01/29/22 Richard Kma MD [address] [place] [address] [phone] Assigned Musculoskeletal Provider 08/14/22 [place] [address] [place], [address] [address] Assigned Neuroscience Provider 01/01/23 Rosemarie Mcdowell, RN Cloth Hand Diabetes Education 03/17/23 Ravi Brownlee MD [address] [place] [address] [phone] Assigned Heart and Vascular Provider 09/04/23 01/03/24 documented as of this encounter
--- OUTSIDE RECORDS SUMMARY | 2024-01-31 20:06 | XMS_ITS | Encounter Summary ---
Author Organization [facility] Address [address] [place] [address] Care Team Providers Care Loss Prevention Specialist Name Role Phone Va Glez MD Primary Care Provider Va Glez MD Unavailable Christy Campuzano PA-C Unavailable [phone] Hans Cannon MD Unavailable Burt Jovel MD Unavailable [phone] Estella Hassan [facility] Unavailable Josh Cordero MD, Madhuri Unavailable [phone] John Webb MD Unavailable John Webb MD Unavailable [phone] Estella Hassan [facility] Unavailable [phone] Lindsay Carey OD Unavailable [phone] Richard Kam MD Unavailable Gaby Vila DO Unavailable Rosemarie Mcdowell RN Unavailable [phone] Ravi Brownlee MD Unavailable Reason for Referral * Consultation (Routine: Next available opening) - Pending Review Specialty Diagnoses / Procedures Referred By Contandrew gonzalez Referred To Contact Diagnoses [place] [address] [place] [address] Phone: tel: fax: Referral ID Status Reason Start Date Expiration Date V isits Requested Visits Authorized [id number] Pending Review 11/11/2023 11/10/2024 1 1 Question Answer Service: Screening Sedation Concerns: No medical conditions affecting sedation Sedation Type: Moderate/Conscious Sedation Preferred Location: [facility] Scheduling Instructions: [facility] will call you to coordinate your care as prescribed by the provider. If you don t hear from a loan representative within 2 business days, please call . Comments Please be aware that coverage of these services is subject to the terms and limitations of your health insurance plan. Call member services at your health plan with any benefit or coverage questions. [facility] will call you to coordinate your care as prescribed by the provider. If you don t hear from a loan representative within 2 business days, please call . Reason for Visit * Reason Comments ER F/U Follow up from ER vi sit on 11/08/23 Encounter Details Date Type Department Care Team (Late st Contact Info) Description 11/11/2023 1:30 PM CDT Office Visit [address] [phone] [place] [address] [place], [place] [id number] Acute gastritis without hemorrhage, unspecified gastritis type (Primary Dx); Screen for colon cancer Social History Tobacco Use Types Packs/Day [...] often do you attend chur ch or orthodox services? 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 Gender Identity Not on file Sexual Orientation Not on file Occupation Industry Job Start Date Job End Date Not on file Not on file Not on file Not on file documented as of this encounter Last Filed Vital Signs Vital Sign Reading Time Taken Comments Blood Pressure 107/72 11/11/2023 1:04 PM CDT Pulse 86 11/11/2023 1:04 PM CDT Temperature 36.8 C (98.3 F) 11/11/2023 1:04 PM CDT Respiratory Rate 16 11/11/2023 1:04 PM CDT Oxygen Saturation 98% 11/11/2023 1:04 PM CDT Inhaled Oxygen Concentration - - Weight 134.9 kg (297 lb 6.4 oz) 11/11/2023 1:04 PM CDT Height 172.7 cm (5' 8) 11/11/2023 1:04 PM CDT Body Mass Index 45.22 11/11/2023 1:04 PM CDT documented in this encounter Progress Notes * Va Glez MD - 11/11/2023 1:30 PM CDT Assessment & Plan Screen for colon cancer Schedule for - Colonoscopy Screening Mobile Home Technician Referral; Future Acute gastritis without hemorrhage, unspecified gastritis type I think his symtpoms are mostly related to gastritis, given the symptoms, less likely to be relatedto Gallbladder disease, at this time, I recommend using Sucralfate, along with PPI daily for 1 month (omeprazole) MED REC REQUIRED Post Medication Reconciliation Status: Roseline Green is a 63 year old, presenting for the following health issues: ER F/U (Follow up from ER visit on 11/08/23) 11/11/2023 12:55 PM Additional Questions Roomed by [email or web address] Accompanied by self HPI ED/UC Followup: Facility: [facility] Date of visit: 11/07/26 Reason for visit: abdominal pain Current Status: pt says status is currently better. His abdominal pain is slightly better, complains of pain with food, but no nausea, vomiting, no diarrhea, Objective BP 107/72 (BP Location: Left arm, Patient Position: Sitting, Cuff Size: Adult Large) Pulse 86 Temp 98.3 ??F (36.8 ??C) (Oral) Resp 16 Ht 1.727 m (5' 8) Wt 134.9 kg (297 lb 6.4 oz) SpO2 98% BMI 45.22 kg/m?? Body mass index is 45.22 kg/m??. Physical Exam GENERAL: alert and no distress NECK: no adenopathy, no asymmetry, masses, or scars RESP: lungs clear to auscultation - no rales, rhonchi or wheezes CV: regular rates and rhythm, normal S1 S2, no S3 or S4, no murmur, click or rub, peripheral pulsesstrong, and 2+ bilateral lower extremity pitting edema to knees. ABDOMEN: tenderness epigastric and bowel sounds normal Signed Electronically by: Va Glez MD documented in this encounter Plan of Treatment Upcoming Encounters Date Type Department Care Team (Late st Contact Info) Description 02/01/2024 3:00 PM EATING DISORDER PSYCHOLOGIST Office Visit [facility] [address] [place] [address] [place] [phone] Manuel Ahn, OD [address] [facility] [place] [address] 02/02/2024 1:30 PM EATING DISORDER PSYCHOLOGIST Therapy Visit [facility] [address] [facility] [address] [place] [phone] Alicja Roldan OT [address] [place] [address] 02/05/2024 8:00 PM EATING DISORDER PSYCHOLOGIST Therapy Visit [facility] [address] [facility] [address] [place] [phone] 02/13/2024 4:30 PM EATING DISORDER PSYCHOLOGIST Oncology Visit [facility] [address] [place] [phone] Marian Agustin, GEAR INSPECTOR [facility] [address] [facility] [address] [place] [address] 03/01/2024 7:00 AM EATING DISORDER PSYCHOLOGIST Office Visit [facility] [address] [place] [phone] [facility] [address] [place] [address] 03/23/2024 2:00 PM EATING DISORDER PSYCHOLOGIST Office Visit [facility] [address] [place] [address] [place] [phone] Lizet Mann PA-C [address] [place] [address] 03/29/2024 3:30 PM EATING DISORDER PSYCHOLOGIST Office Visit [facility] [address] [facility] [address] [place] [phone] Hakeem Chacko MBBS [address] [place] [address] 05/03/2024 3:00 PM EATING DISORDER PSYCHOLOGIST Office Visit [facility] [id number] [place] [phone] Gaurav Valenzuela, [facility] [address] [place] [address] 106 [place] [address] 05/22/2024 10:30 AM CDT Office Visit [facility] [address] [place] [phone] Estella Hassan, [facility] [address] [facility] [place] [address] 05/22/2024 11:30 AM CDT Office Visit [facility] [address] [place] [phone] [place] [id number] [place] [address] Scheduled Referrals Name Type Priority Associated Diagnoses Order Schedule Colonoscopy Screening Mobile Home Technician Referral Referral Routine: Next available opening Screen for colon cancer Expected: 11/11/2023 (Approximate), Expires: 11/10/2024 documented as of this encounter Goals Goal [...] 10:17 AM CDT) No Enoch, Mitra K, RHYTHMIC GYMNASTICS COACH Note: Updated on 05/25/22 Barriers: Currently not working.Doesn't have insurance Strengths: Getting SSD. Patient expressed understanding of goal: Action steps to achieve this goal: 1. I will apply for unemployment. Decided not to 2. I will explore my options for health insurance by looking in to [employer] and talking with a FRW. Completed 3. I will look for a new job and will access resources that the [employer] offers. . Sarted new job 4. Continue [...] Education Needed to Optimize Self-Care Behaviors No Baeyen, Rosemarie A, RN documented as of this encounter Visit Diagnoses Diagnosis Acute gastritis without hemorrhage, unspecified gastritis type- Primary Screen for colon cancer Special screening for malignant neoplasms, colon documented in this encounter Additional Health Concerns [...] documented as of this encounter Care Teams Loss Prevention Specialist Relationship Specialty [place] [address] [place] [address] PCP - General Family Practice 07/11/14 [place] [address] [place] [address] Assigned PCP 12/16/11 Christy Campuzano PA-C [address] [place] [phone] Referring Physician Family Medicine 04/22/20 Hans Cannon MD [address] [place] [address] Resident Pulmonary Disease 04/22/20 [place] [address] [place] [address] [phone] Internal Medicine 05/08/20 12/13/23 Estella Hassan, [facility] [address] [place] [address] Pharmacist Pharmacist 05/26/20 Elaina Moreno MD [address] [place] [address] [phone] Cardiovascular & Thoracic Surgery 08/06/20 John Webb MD [address] [place] [address] Cardiovascular Disease 08/25/21 John Webb MD [address] [place] [place] [id number] Cardiovascular Disease 08/25/21 Estella Hassan, [facility] [address] [place] [address] Assigned MTM Pharmacist 12/09/21 Lindsay Carey OD [address] [facility] [place] [address] Ophthalmology 01/29/22 Richard Kam MD [address] [place] [address] [phone] Assigned Musculoskeletal Provider 08/14/22 [place] [address] [place], [address] [id number] Assigned Neuroscience Provider 01/01/23 Rosemarie Mcdowell RN Benzene Still Utility Operator Diabetes Education 03/17/23 Ravi Brownlee MD [address] [place] [address] Assigned Heart and Vascular Provider 09/04/23 01/03/24 documented as of this encounter
--- OUTSIDE RECORDS SUMMARY | 2024-01-31 20:06 | XMS_ITS | Encounter Summary ---
Author Organization [facility] Address [address] [place] [address] Care Team Providers Care Equal Opportunity Officer Name Role Phone Va Glez MD Primary Care Provider Va Glez MD Unavailable Christy Campuzano PA-C Unavailable [phone] Hans Cannon MD Unavailable Burt Jovel MD Unavailable [phone] Estella Hassan [facility] Unavailable [phone] Josh Cordero MD, Madhuri Unavailable [phone] John Webb MD Unavailable John Webb MD Unavailable Estella Hassan [facility] Unavailable Lindsay Carey OD Unavailable Richard Kam MD Unavailable Gaby Vila DO Unavailable Rosemarie Mcdowell RN Unavailable [phone] Ravi Brownlee MD Unavailable Reason for Visit * Reason Comments Abnormal Labs Encounter Details Date Type Department Care Team (Late st Contact Info) Description 11/08/2023 7:25 PM CDT - 11/08/2023 10:50 PM CDT Emergency [facility] Emergency Dept [address] [place] [address] Garret Drake MD [facility] [address] [place] [address] Upper abdominal pain Discharge Disposition: Home or Self Care Social [...] week 10/20/2022 How often do you attend [facility] or gnosticist services? 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 Gender Identity Not on file Sexual Orientation Not on file Occupation Industry Job Start Date Job End Date Not on file Not on file Not on file Not on file documented as of this encounter Last Filed Vital Signs Vital Sign Reading Time Taken Comments Blood Pressure 116/73 11/08/2023 10:37 PM CDT Pulse 79 11/08/2023 10:37 PM CDT Temperature 36.4 C (97.5 F) 11/08/2023 7:11 PM CDT Respiratory Rate 20 11/08/2023 7:11 PM CDT Oxygen Saturation 94% 11/08/2023 10: 37 PM CDT Inhaled Oxygen Concentration - - Weight 134.5 kg (296 lb 8.3 oz) 11/08/2023 7:11 PM CDT Height 175.3 cm (5' 9) 11/08/2023 7:11 PM CDT Body Mass Index 43.79 11/08/2023 7:11 PM CDT documented in this encounter Discharge Instructions * Discharge Instructions* Garret Drake MD - 11/08/2023 10:31 PM CDT I recommend avoiding greasy foods, spicy foods, alcohol ibuprofen, Advil, Motrin and Aleve as thesecan be harsh on your stomach. Based on your story, question if you might have more of a stomach ulcer. Recommended taking Pepcid, Carafate and omeprazole to help with your pain. If over the next few days you develop worsening abdominal pain, especially right upper side, fever, or unable to eat or drink, develop chest pain, chest pressure or chest heaviness or tightness or passout you should return to the emergency department. Otherwise I recommend following up with your primary care doctor for recheck documented in this encounter Medications at Time [...] DAYS. USE TO READ BLOOD SUGARS PER LINEN CHECKER'S INSTRUCTIONS. 2 each 5 4 diclofenac (VOLTAREN) 1 % topical gel Apply 2 g topically 4 times daily metFORMIN (GLUCOPHAGE XR) 500 MG 24 hr tabletIndications :Type 2 diabetes mellitus without complication, without long-term current use of insulin (H) TAKE 4 TABLETS BY MOUTH DAILY WITH DINNER 360 tablet 1 4 Semaglutide, 2 MG/DOSE, (OZEMPIC) 8 [...] 1 puff into the lungs every 12 hours 1 each 5 4 12/02/19 24 glipiZIDE (GLUCOTROL XL) 10 MG 24 hr tabletIndications :Type 2 diabetes mellitus without complication, without long-term current use of insulin (H) Take 1 tablet (10 mg) by mouth daily 90 tablet 1 4 01/05/20 24 ipratropium - albuterol 0.5 mg/2.5 mg/3 mL (DUONEB) 0.5-2.5 (3) MG/3ML neb solutionIndicatio ns:SOB (shortness of breath) TAKE 1 VIAL (3 MLS) BY NEBULIZATION EVERY 6 HOURS NEEDED FOR SHORTNESS OF BREATH / DYSPNEA /WHEEZING 360 mL 3 4 12/15/19 24 ondansetron (ZOFRAN ODT) 4 MG ODT tab Take 1 tablet (4 mg) by mouth every 8 hours as needed for nausea or vomiting. 10 tablet 4 11/11/19 24 umeclidinium (INCRUSE ELLIPTA) 62.5 MCG/ACT inhalerIndication s:Moderate persistent asthma without complication Inhale 1 puff into the lungs daily 1 each 5 4 12/21/19 24 documented as of this encounter ED Notes * Rosie Cartagena RN - 11/08/2023 10:49 PM CDT AVS reviewed. * Garret Drake MD - 11/08/2023 7:34 PM CDT Emergency Department Note History of Present Illness Chief Complaint Abnormal Labs HPI Peter Devi is a 63 year old male who presents with abnormal labs. He was seen in the ED a fewdays ago with shortness of breath and left AMA. His clinic was concerned with his elevated troponinand told him to present to the ED. He has had some intermittent abdominal pain. He denies having abdominal distension. He as worse. No changes to urination or bowel movements. No vomiting. Earlier today he had pain in his shoulder and arm. He denies doing anything when the pain started. He has shortness of breath with exertion which comes on both suddenly and sometimes gradually. In the ED, he denies having symptoms. Independent Historian None Review of External Notes ER visit from 11/06/2023, presentation for shortness of breath thought secondary to asthma which is reportedly happening to him when there is a change in heat. It was noted that he had a elevated troponin of 25 at that time, it was repeated in 2039 and no anginal symptoms and a normal EKG and was discharged. Past Medical History Medical History and Problem List Arthritis of knee Depressive disorder Diabetes LUZ Glucose intolerance Major depressive disorder Mediastinal cyst Moderate persistent asthma Morbid obesity Type 2 diabetes mellitus Medications Albuterol inhaler Atorvastatin Escitalopram Fluticasone-salmeterol inhaler Glipizide Ipratropium - albuterol 0.5 mg/2.5 mg/3 mL neb solution Metformin Ondansetron Semaglutide pen Umeclidinium inhaler Surgical History Davinci excise nodes thoracic Toe surgery Physical Exam Patient Vitals for the past 24 hrs: BP Temp Pulse Resp SpO2 Height Weight 11/08/23 2237 116/73 -- 79 -- 94 % -- -- 11/08/23 1911 (!) 161/95 97.5 ??F (36.4 ??C) 90 20 92 % 1.753 m (5' 9) 134.5 kg (296 lb 8.3 oz) Physical Exam Constitutional: Alert, attentive, GCS 15 HENT: Nose: Nose normal. Mouth/Throat: Oropharynx is clear, mucous membranes are moist epigastric tenderness, no overt rightupper quadrant tenderness Eyes: EOM are normal, anicteric, conjugate gaze CV: regular rate and rhythm Chest: Effort normal and breath sounds clear without wheezing or rales, symmetric bilaterally GI: No distension. No guarding or rebound. MSK: No LE edema, no tenderness to palpation of BLE. Neurological: Alert, attentive, moving all extremities equally. Skin: Skin is warm and dry. Diagnostics Lab Results Labs Ordered and Resulted from Time of ED Arrival to Time of ED Departure COMPREHENSIVE METABOLIC PANEL - Abnormal Result Value Sodium 142 Potassium 4.0 Carbon Dioxide (CO2) 25 Anion Gap 12 Urea Nitrogen 19.6 Creatinine 0.79 GFR Estimate >90 Calcium 8.8 Chloride 105 Glucose 142 (*) Alkaline Phosphatase 84 AST 21 ALT 28 Protein Total 6.4 Albumin 3.9 Bilirubin Total 0.7 LIPASE - Normal Lipase 32 D DIMER QUANTITATIVE - Normal D-Dimer Quantitative 0.37 NT PROBNP INPATIENT - Normal N terminal Pro BNP Inpatient <36 TROPONIN T, HIGH SENSITIVITY - Normal Troponin T, High Sensitivity 17 CBC WITH PLATELETS AND DIFFERENTIAL WBC Count 6.3 RBC Count 4.88 Hemoglobin 13.6 Hematocrit 40.2 MCV 82 MCH 27.9 MCHC 33.8 RDW 13.7 Platelet Count 203 % Neutrophils 71 % Lymphocytes 17 % Monocytes 9 % Eosinophils 2 % Basophils 0 % Immature Granulocytes 0 NRBCs per 100 WBC 0 Absolute Neutrophils 4.5 Absolute Lymphocytes 1.1 Absolute Monocytes 0.5 Absolute Eosinophils 0.1 Absolute Basophils 0.0 Absolute Immature Granulocytes 0.0 Absolute NRBCs 0.0 Imaging US Abdomen Limited Final Result IMPRESSION: 1. Cholelithiasis and gallbladder sludge. Although the gallbladder wall measures slightly thick, noother secondary signs of cholecystitis are evident. 2. Hepatic steatosis and hepatomegaly. EKG ECG results from 11/08/23 EKG 12 lead Value Systolic Blood Pressure Diastolic Blood Pressure Ventricular Rate 78 Atrial Rate 78 PA Interval 142 QRS Duration 90 QT 364 QTc 414 P [place] 75 R AXIS -21 T [place] 50 Interpretation ECG Sinus rhythm Normal ECG When compared with ECG of 06-Nov-2023 19:57, QRS axis Shifted right *Note: Due to a large number of results and/or encounters for the requested time period, some results have not been displayed. A complete set of results can be found in Results Review. Independent Interpretation None ED Course Discussion of Management None ED Course ED Course as of 11/08/232313Nov 08, 20231941 I obtained the patient's history and examined as noted above. 2231 I rechecked the patient and explained findings. Additional Documentation None Medical Decision Making / Diagnosis [facility] Diagnoses: None MIPS None MDM Peter Devi is a 63 year old male past medical history significant for aortic aneurysm, diabetes, asthma, anxiety presenting for evaluation at the recommendation of his primary care clinic afterhe was recommended to follow-up from a recent ER visit, referred back to the emergency department as his troponins at that ER visit were elevated and he had some upper abdominal pain. In review of the chart, he had trivially elevated troponins after presenting for shortness of breath better explained at that time by asthma exacerbation with normal EKG and no clear angina and he denies here any exertional chest pain, chest pressure or shortness of breath. Repeat EKG here is stable, troponin is ne gative with low concern for ACS. I did send a D-dimer because he was complaining of some worsening pain in his abdomen with breathing, however this is negative with low suspicion for PE and otherwiselow risk patient he does have some epigastric pain prompting LFTs, lipase which were unrevealing and right upper quadrant ultrasound which shows some biliary sludge but no gallstones and trivial gallbladder wall thickening, but negative sonographic Magallanes sign. If this is acute cholecystitis is exceedingly early he was able to tolerate p.o. here without abdominal pain and I have low suspicion foracute cholecystitis at this time. As abdominal exam is otherwise benign with low suspicion of obvious perforation or obstruction or infection. He reports that the pain in his upper abdomen is sometimes worsened with certain foods he has been taking significant amount of Aleve due to a vein stripping procedure and I am question if he has potentially a ulcer. I recommended Carafate, Pepcid, Prilosec and close PCP follow-up. Return precautions were reviewed and he was discharged. Disposition The patient was discharged. Diagnosis ICD-10-CM 1. Upper abdominal pain R10.10 Discharge Medications Discharge Medication List as of 11/08/2023 10:41 PM START taking these medications Details sucralfate (CARAFATE) 1 GM tablet Take 1 tablet (1 g) by mouth 4 times daily., Disp-30 tablet, R-0,Local Print Garret Drake MD [facility] 11:14 PM 11/08/23 Scribe Disclosure: I, Whitney Martínez, am serving as a scribe at 7:37 PM on 11/08/2023 to document services personally performed by Garret Drake MD based on my observations and the provider's statements to me. Garret Drake MD Dunbar, John Forrest, MD 11/08/23 [id number] * Darline Cheng RN - 11/08/2023 7:06 PM CDT Pt arrives for abnormal labs. He reports that he was in the ED on 11/05, had a work up for SOB and weakness but left AMA before workup was complete. He reports his primary saw that his troponin was elevated and wanted him to come back. Results from 11/05 show troponin of 25 and then 24 two hours later. Pt denies new symptoms but does say that he never had his chest scan done and earlier was having some R shoulder pain. AVSS. documented in this encounter Plan of Treatment Upcoming Encounters Date Type Department Care Team (Late st Contact Info) Description 02/01/2024 3:00 PM CARDING DOUBLER Office Visit [facility] [address] [place] [phone] Manuel Ahn, [address] [place] [address] 02/02/2024 1:30 PM CARDING DOUBLER Therapy Visit [facility] [address] [facility] [address] [place] [phone] Alicja Roldan, BETY [address] [place] [address] 02/05/2024 8:00 PM CARDING DOUBLER Therapy Visit [facility] [place] [address] [place] [address] [address] [place] [phone] 02/13/2024 4:30 PM CARDING DOUBLER Oncology Visit [facility] [address] [place] [phone] Marian Agustin APRN SUPERVISOR [employer] [address] [facility] [address] [place], [place] [phone] 03/01/2024 7:00 AM CARDING DOUBLER Office Visit [facility] [address] [place] [phone] Estella Hassan, [facility] [address] [place] [address] 03/23/2024 2:00 PM CARDING DOUBLER Office Visit [facility] [address] [place] [address] [place] [address] Lizet Mann PA-C [address] [place] [address] 03/29/2024 3:30 PM CARDING DOUBLER Office Visit [facility] [address] [facility] [address] [place] [phone] Hakeem Chacko MBBS [address] [place] [address] 05/03/2024 3:00 PM CARDING DOUBLER Office Visit [facility] [address] [place] [phone] Gaurav Valenzuela, AD WRITER [facility] [place] [address] 05/22/2024 10:30 AM CDT Office Visit [address] [phone] Estella Hassan, [facility] [address] [place] [address] 05/22/2024 11:30 AM CDT Office Visit [address] [phone] Va Glez MD [address] [place] [address] [phone] documented as of this encounter Goals Goal [...] for health insurance by looking in to [employer] and talking with a FRW. Completed 3. I will look for a new job and will access resources that the [employer] offers. . Sarted new job 4. Continue [...] Procedure Name Priority Date/Time Associated Diagnosis Comments US ABDOMEN LIMITED STAT 11/08/2023 9: 52 PM CDT EXTRA TUBE STAT 11/08/2023 8:00 PM CDT EXTRA RED TOP TUBE STAT 11/08/2023 8: 00 PM CDT CBC WITH PLATELETS AND DIFFERENTIAL STAT 11/08/2023 8:00 PM CDT TROPONIN T, HIGH SENSITIVITY STAT 11/08/2023 8:00 PM CDT CBC WITH PLATELETS & DIFFERENTIAL STAT 11/08/2023 8:00 PM CDT NT PROBNP INPATIENT STAT 11/08/2023 8 :00 PM CDT LIPASE STAT 11/08/2023 8:00 PM CDT D DIMER QUANTITATIVE STAT 11/08/2023 8:00 PM CDT COMPREHENSIVE METABOLIC PANEL STAT 11/08/2023 8:00 PM CDT EKG 12-LEAD, TRACING ONLY STAT 11/08/2023 7:18 PM CDT documented in this encounter Results * US Abdomen Limited (11/08/2023 9:52 PM CDT) Anatomical Region Laterality Modality Abdomen/Pelvis Ultrasound 11/08/2023 9:52 PM CDT Impressions 11/08/2023 9:58 PM CDT IMPRESSION: 1. Cholelithiasis and gallbladder sludge. Although the gallbladder wall measures slightly thick, no other secondary signs of cholecystitis are evident. 2. Hepatic steatosis and hepatomegaly. Narrative 11/08/2023 9:58 PM CDT EXAM: US ABDOMEN LIMITED LOCATION: [facility] DATE: 11/08/2023 INDICATION: abdominal pain COMPARISON: None. [...] - 11/08/2023 EXAM: US ABDOMEN LIMITED LOCATION: [facility] DATE: 11/08/2023 INDICATION: abdominal pain COMPARISON: None. [...] Hepatic steatosis and hepatomegaly. Garret Drake MD [facility] US ORDERABLES Final R esult * Extra Red Top Tube (11/08/2023 8:00 PM CDT) Hold Specimen JI 11/08/2023 9:16 PM CDT [facility] Blood BLOOD SPECIMEN / Unknown Venipuncture / Unknown 11/08/2023 8:00 PM CDT 11/08/2023 8:05 PM CDT us Garret Drake MD LAB - BLOOD ORDERABLES Fi nal Result [facility] [address] Lab (1st floor, no room number) [place] [address], [facility] * CBC with platelets and differential (11/08/2023 8:00 PM CDT) WBC Count 6.3 4.0 - 11.0 10e3/uL [...] - BLOOD ORDERABLES Fi nal Result LABORATORY [facility] [address] [facility] Lab (1st floor, no room number) [place] [address], [facility] * Troponin T, High Sensitivity (now) (11/08/2023 8:00 PM CDT) [facility] Troponin T, High Sensitivity 17 <=22 ng/L 11/08/2023 8:39 PM CDT [facility] Comment: Either a High Sensitivity Troponin [...] ORDERABLES Fi nal Result Performing Organization Address [facility] Co de Phone Number [facility] [address] [facility] Lab (1st floor, no room number) [place] [address] * BNP (11/08/2023 8:00 PM CDT) [facility] N terminal Pro BNP Inpatient <36 0 [...] 8:00 PM CDT 11/08/2023 8:05 PM CDT Garert Drake MD LAB - BLOOD ORDERABLES Fi nal Result Performing Organization Address City/[facility]/ZIP Co de Phone Number [facility] Acute Care Lab [address] Lab (1st floor, no room number) [place] [address] * D dimer quantitative (11/08/2023 8:00 PM CDT) D-Dimer Quantitative 0.37 0.00 - 0.50 ug/mL FEU 11/08/2023 8:50 PM CDT [facility] Blood BLOOD SPECIMEN [...] out pulmonary embolism: The ADJUST-PE Study. BAHMAN 2014;311:2974-2154.; HJ Hellen et al. Diagnostic accuracy of conventional or age adjusted D-dimer cutoff values in older patients with suspected venous thromboembolism. Systemic review and meta-analysis. BMJ 2013:346:f2492. us Garret Draek MD LAB - BLOOD ORDERABLES Fi nal Result LABORATORY [facility] [address] Lab (1st floor, no room number) [place] [address], [facility] * Lipase (11/08/2023 8:00 PM CDT) Lipase 32 13 - 60 U/L 11/08/2023 8:34 PM CDT [facility] Blood BLOOD SPECIMEN / Unknown Venipuncture / Unknown 11/08/2023 8:00 PM CDT 11/08/2023 8:05 PM CDT Garret Drake MD LAB - BLOOD ORDERABLES Fi nal Result LABORATORY [facility] [address] Lab (1st floor, no room number) [place] [address], [facility] * (ABNORMAL) Comprehensive metabolic panel (11/08/2023 8:00 PM CDT) Sodium 142 135 - 145 mmol/L 11/08/2023 8:34 PM CDT LABORATORY Potassium 4.0 3.4 - 5.3 mmol/L 11/08/2023 8:34 PM CDT LABORATORY Carbon Dioxide (CO2) 25 22 - 29 mmol/L 11/08/2023 8:34 PM CDT LABORATORY Anion Gap 12 7 - 15 mmol/L 11/08/2023 8:34 PM CDT LABORATORY Urea Nitrogen 19.6 8.0 - 23.0 mg/dL 11/08/2023 8:34 PM CDT LABORATORY Creatinine 0.79 0.67 - 1.17 mg/dL 11/08/2023 8:34 PM CDT LABORATORY GFR Estimate >90 >60 mL/min/1.7 3m2 11/08/2023 8:34 PM CDT [facility] Comment:eGFR calculated usin g 2020 CKD-EPI equation. Calcium 8.8 8.8 - 10.4 mg/dL 11/08/2023 8:34 PM CDT [facility] Comment:Reference intervals for this test were updated on 09/27/2023 to reflect our healthy population more accurately. There may be differences in the flagging of prior results with similar values performed with this method. Those prior results can be interpreted in the context of the updated reference intervals. Chloride 105 98 - 107 mmol/L 11/08/2023 8:34 PM CDT LABORATORY Glucose 142(H) 70 - 99 mg/dL 11/08/2023 8:34 PM CDT [facility] Alkaline Phosphatase 84 40 - 150 U/L 11/08/2023 8:34 PM CDT [facility] AST 21 0 - 45 U/L 11/08/2023 8:34 PM CDT [facility] ALT 28 0 - 70 U/L 11/08/2023 8:34 PM CDT [facility] Protein Total 6.4 6.4 - 8.3 g/dL 11/08/2023 8:34 PM CDT [facility] Albumin 3.9 3.5 - 5.2 g/dL 11/08/2023 8:34 PM CDT [facility] Bilirubin Total 0.7 <=1.2 mg/dL 11/08/2023 8:34 PM CDT [facility] Blood BLOOD SPECIMEN / Unknown Venipuncture / Unknown 11/08/2023 8:00 PM CDT 11/08/2023 8:05 PM CDT Garret Drake MD LAB - BLOOD ORDERABLES Fi nal Result LABORATORY [facility] [address] Lab (1st floor, no room number) [place] [address] * EKG 12 lead (11/08/2023 7:18 PM CDT) Systolic Blood Pressure mmHg RADIOLOGY RESULTS Diastolic Blood Pressure mmHg RADIOLOGY RESULTS Ventricular Rate 78 BPM RAD IOLOGY RESULTS Atrial Rate 78 BPM RADIOLOG Y RESULTS PA Interval 142 ms RADIOLOG Y RESULTS QRS Duration 90 ms RADIOLO GY RESULTS QT 364 ms RADIOLOGY RESULTS QTc 414 ms RADIOLOGY RESULTS P [place] 75 degrees RADIOLOGY RESULTS R AXIS -21 degrees RADIOLOGY RESULTS T [place] 50 degrees RADIOLOGY RESULTS Interpretation ECG Sinus rhythm Normal ECG When compared with ECG of 06-Nov-2023 19:57, QRS axis Shifted right Confirmed by - EMERGENCY ROOM, PHYSICIAN ([id number]), society editor ELZBIETA DANIEL ([id number]) on 11/09/2023 7:09:12 AM RADIOLOGY RESULTS 11/08/2023 7:18 PM CDT 11/09/2023 7:09 AM CDT Garret Drake MD ECG ORDERABLES Edited Re sult - Final RADIOLOGY RESULTS documented in this encounter Visit Diagnoses Diagnosis Upper abdominal pain Abdominal pain, other specified site documented in this encounter Additional Health Concerns [...] documented as of this encounter Care Teams Equal Opportunity Officer Relationship Specialty [place] [address] [place] [address] PCP - General Family Practice 07/11/14 [place] [address] [place] [address] Assigned PCP 12/16/11 Christy Campuzano PA-C [address] [place] [address] [phone] Referring Physician Family Medicine 04/22/20 Hans Cannon MD [address] [place] [address] [phone] Resident Pulmonary Disease 04/22/20 Burt Jovel MD [address] [place], [place] [phone] Internal Medicine 05/08/20 12/13/23 Estella Hassan, [facility] [address] [place] [address] Pharmacist Pharmacist 05/26/20 Elaina Moreno MD [address] [place] [address] [phone] Cardiovascular & Thoracic Surgery 08/06/20 John Webb MD [address] [id number] Cardiovascular Disease 08/25/21 John Webb MD [address] [id number] Cardiovascular Disease 08/25/21 Estella Hassan, [facility] [address] [place] [address] Assigned MTM Pharmacist 12/09/21 Lindsay Carey OD [address] [place] [address] Ophthalmology 01/29/22 Richard Kam MD [address] [place] [address] Assigned Musculoskeletal Provider 08/14/22 [place] [address] [address] [place] [address] Assigned Neuroscience Provider 01/01/23 Rosemarie Mcdowell RN Legal Process Specialist Diabetes Education 03/17/23 Ravi Brownlee MD [address] [place] [address] Assigned Heart and Vascular Provider 09/04/23 01/03/24 documented as of this encounter
--- OUTSIDE RECORDS SUMMARY | 2024-01-31 20:06 | XMS_ITS | Encounter Summary ---
Author Organization [facility] Address [address] [place] [address] Care Team Providers Care Transit Operations Supervisor Name Role Phone Va Glez MD Primary Care Provider Va Glez MD Unavailable Christy Campuzano PA-C Unavailable Hans Cannon MD Unavailable Burt Jovel MD Unavailable [phone] Estella Hassan [facility] Unavailable [phone] Josh Cordero MD, Madhuri Unavailable [phone] John Webb MD Unavailable John Webb MD Unavailable [phone] Estella Hassan [facility] Unavailable Lindsay Carey OD Unavailable Richard Kam MD Unavailable Gaby Vila DO Unavailable Rosemarie Mcdowell RN Unavailable [phone] Ravi Brownlee MD Unavailable Reason for Visit * Reason Onset Date Comments Patient Request 11/22/2023 Encounter Details Date Type Department Care Team (Late st Contact Info) Description 11/22/[address] [place] [phone] Kerry Bernal RN Patient Request Social History [...] How often do you attend chur or jain services? More than 4 times per year 10/20/2022 Do you belong to any clubs o r organizations such as yarsani groups, unions, fraternal or athletic groups, or [...] Answer Date Recorded PHQ-2 Score 1 10/13/2023 [facility] of Occupat ional Health - Occupational Stress [...] on file Legal 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 DOLL MAKER Gender Identity Not on file Sexual Orientation Not on file Occupation Industry Job Start Date Job End Date Not on file Not on file Not on file Not on file documented as of this encounter Miscellaneous Notes * Telephone Encounter - Kerry Bernal RN - 11/22/2023 2:20 PM CDT RN placed call to patient MTM - would like to cancel appt with MTM on 11/25/2023 as he has another appt for his knee RN unable to find another appt that will work with patient's schedule in the month of November, andrae states to keep the appt and will try to change the other one and call back if unable Tests Results from urgent care on 11/20/2023, influenza and covid both negative Ozempic $71 per month - last took on 11/19/2023, Uncertain if will be able to afford this medication RN advised if unable to brass pickler prior to next dose on 11/26/23 to let us know, may need something different or to decrease dose if unable to brass pickler on time Jyothi Lozada Nurse [facility] * Telephone Encounter - Kerry Bernal RN - 11/22/2023 1:31 PM CDT Patient left message on this RN VM Please call me back I have a few questions Jyothi Lozada Nurse [facility] documented in this encounter Plan of Treatment Upcoming Encounters Date Type Department Care Team (Late st Contact Info) Description 02/01/2024 3:00 PM DOLL MAKER Office Visit [address] [phone] Manuel Ahn, [address] [place] [address] 02/02/2024 1:30 PM DOLL MAKER Therapy Visit [facility] [address] [facility] [address] [place] [phone] Alicja Roldan, OT 909 [place] [address] 02/05/2024 8:00 PM DOLL MAKER Therapy Visit [facility] [address] [place] [phone] 02/13/2024 4:30 PM DOLL MAKER Oncology [facility] [address] [facility] [place] [phone] Marian Agustin, [facility] [address] [facility] 207 [place] [address] 03/01/2024 7:00 AM DOLL MAKER Office Visit [address] [phone] Estella Hassan, [facility] [address] [place], [place] [address] 03/23/2024 2:00 PM DOLL MAKER Office Visit [facility] [address] [place] [phone] Lizet Mann PA-C [address] [place] [address] 03/29/2024 3:30 PM DOLL MAKER Office Visit [facility] 2945 [facility] 200 [place] [phone] Hakeem Chacko MBBS 2945 [place] [address] 05/03/2024 3:00 PM DOLL MAKER Office Visit [facility] [address] [phone] Gaurav Valenzuela, CERAMIC CAPACITOR PROCESSOR [facility] [address] [place], [place] [address] [address] [address] 05/22/2024 10:30 AM CDT Office Visit [facility] [address] [place] [phone] Estella Hassan, [facility] [address] [place] [address] 05/22/2024 11:30 AM CDT Office Visit [facility] [address] [place] [phone] [place] [address] [place], [place] [phone] documented as of this encounter Goals Goal [...] for health insurance by looking in to [employer] and talking with a FRW. Completed 3. I will look for a new job and will access resources that the [employer] offers. . Sarted new job 4. Continue [...] documented as of this encounter Care Teams Transit Operations Supervisor Relationship Specialty [place] [address] [place] [address] PCP - General Family Practice 07/11/14 [place] [address] [place] [address] Assigned PCP 12/16/11 Christy Campuzano PA-C [address] [place] [address] [phone] Referring Physician Family Medicine 04/22/20 Hans Cannon MD [address] [place] [address] Resident Pulmonary Disease 04/22/20 Burt Jovel MD [address] [place] [address] [id number] Internal Medicine 05/08/20 12/13/23 Estella Hassan, [facility] [address] [place] [address] Pharmacist Pharmacist 05/26/20 Elaina Moreno MD 9 [place] [address] Cardiovascular & Thoracic Surgery 08/06/20 John Webb MD [address] [address] Cardiovascular Disease 08/25/21 John Webb MD [address] [address] Cardiovascular Disease 08/25/21 Estella Hassan, [facility] [address] [place] [address] Assigned MTM Pharmacist 12/09/21 Lindsay Carey OD [address] [place] [address] Ophthalmology 01/29/22 Richard Kam MD 500 [place], [place] 156945 Assigned Musculoskeletal Provider 08/14/22 [place] [address] BC PENA, [address] 356[address] Assigned Neuroscience Provider 01/01/23 Rosemarie Mcdowell, RN Patient Accounts Coordinator Diabetes Education 03/17/23 Ravi Brownlee MD [address] [place] [address] 276 [place], [place] [address] Assigned Heart and Vascular Provider 09/04/23 01/03/24 documented as of this encounter
--- OUTSIDE RECORDS SUMMARY | 2024-01-31 20:06 | XMS_ITS | Encounter Summary ---
Author Organization [facility] Address [address] [place] [address] Care Team Providers Care Fast Food Sales Assistant Name Role Phone Va Glez MD Primary Care Provider Va Glez MD Unavailable Christy Campuzano PA-C Unavailable [phone] Hans Cannon MD Unavailable [phone] Burt Jovel MD Unavailable [phone] Estella Hassan [facility] Unavailable Josh Cordero MD, Madhuri Unavailable [phone] John Webb MD Unavailable John Webb MD Unavailable [phone] Estella Hassan [facility] Unavailable [phone] Lindsay Carey OD Unavailable Richard Kam MD Unavailable Gaby Vila DO Unavailable Rosemarie Mcdowell RN Unavailable Ravi Brownlee MD Unavailable [phone] Reason for Visit * Reason Onset Date Comments Patient Request 11/15/2023 Coupon for ozemp ic Encounter Details Date Type Department Care Team (Late st Contact Info) Description 11/15/[address] [phone] Kerry Bernal, INOCENCIO Patient Request (Coupon for ozempic ) Social History Tobacco Use Types Packs/Day [...] week 10/20/2022 How often do you attend [facility] or episcopal services? More than 4 times per year 10/20/2022 Do you belong to any clubs o r organizations such as hoahaoism groups, unions, fraternal or athletic groups, or [...] Recorded PHQ-2 Score 1 10/13/2023 [facility] [place] of Occupat ional Health - Occupational Stress [...] in an overnight retirement, 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.) Yes 03/18/2023 Are you worried [...] on file Legal 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 ROUTE SERVICE REPRESENTATIVE Gender Identity Not on file Sexual Orientation Not on file Occupation Industry Job Start Date Job End Date Not on file Not on file Not on file Not on file documented as of this encounter Miscellaneous Notes * Telephone Encounter - Kerry Bernal RN - 11/15/2023 1:10 PM CDT RN spoke to patient Reviewed message below from MTM - patient will meat pickler one month - if unable to afford monthly willlet us know and see if other options available that are more affordable Patient states that he doesn't want to see pulmonology any more because they wont fill his nebulizer medication. Discussed this in detail. Patient has used inhaled medications more frequently than prescribed in the past which is why pcp recommended he see pulmonology. RN advised to check with pharmacy, if no refills remaining advised patient to contact pulmonology again to see if he can get a sooner appt. May need a change in daily inhaler if having to use so much nebulizer medication. Jyothi Lozada [facility] * Telephone Encounter - Kerry Bernal RN - 11/15/2023 1:07 PM CDT Images from the original note were not included. Kelsi Saldivar, [facility] Kerry Bernal RN Caller: Unspecified (Yesterday, 10:21 AM) Jimmy Payne, I am covering for Estella who is out of clinic today. Because the patient has Medicare he isn't eligible for coupon. I called the pharmacy and the $230 is for a 3 month supply. Last time he picked up 1 month for the 1mg dose it was $47. Now he is getting the 2mg dose filled and the naylor per monthwould be $78. Not sure if he is willing to just pay for 1 month at a time? Kelsi Saldivar, Pharm.D, BCACP Medication Therapy Management Pharmacist * Telephone Encounter - Kerry Bernal RN - 11/15/2023 11:59 AM CDT [facility] [place] team Estella had given patient a coupon to get his ozempic for cheaper cost Tried to meat pickler and now is over $200 Asking if there is another coupon he could use? Or if any other suggestions due to cost Thank you Jyothi Lozada Nurse [facility] * Telephone Encounter - Kerry Bernal RN - 11/15/2023 10:21 AM CDT Patient left message on this RN VM - I went to meat pickler my ozempic and the cost is $230, this is not affordable, I know that MTM gave me a coupon last time wondering if this is an option again Kerry Bernal Registered Nurse [facility] documented in this encounter Plan of Treatment Upcoming Encounters Date Type Department Care Team (Late st Contact Info) Description 02/01/2024 3:00 PM ROUTE SERVICE REPRESENTATIVE Office Visit [facility] 6341 [place] [phone] Manuel Ahn, [address] [place] [address] 02/02/2024 1:30 PM ROUTE SERVICE REPRESENTATIVE Therapy Visit [facility] [place] [address]998 [facility] 300 [place] [phone] Alicja Roldan OT 909 [place] [address] 02/05/2024 8:00 PM ROUTE SERVICE REPRESENTATIVE Therapy Visit [facility] [place] [address] [place] [address] 103 [place] [phone] 02/13/2024 4:30 PM ROUTE SERVICE REPRESENTATIVE Oncology Visit [facility] 909 [place] [phone] Marian Agustin APRN [facility] [address] [facility] 207 [place] [address] 03/01/2024 7:00 AM ROUTE SERVICE REPRESENTATIVE Office [facility] [address] [place] [phone] Estella Hassan, [facility] 3033 [place] [address] 03/23/2024 2:00 PM ROUTE SERVICE REPRESENTATIVE Office Visit [facility] [address] [place] [address] [place] [address] Lizet Mann PA-C [address] [place] [address] 03/29/2024 3:30 PM ROUTE SERVICE REPRESENTATIVE Office Visit [facility] [address] [phone] Hakeem Chacko MBBS 2945 [place] [address] 05/03/2024 3:00 PM ROUTE SERVICE REPRESENTATIVE Office Visit [address] [phone] Gaurav Valenzuela, ACCOUNTING REPRESENTATIVE [address] [address] 05/22/2024 10:30 AM CDT Office Visit [address] [phone] Estella Hassan, [place] [address] [place] [address] 05/22/2024 11:30 AM CDT Office Visit [address] [phone] Va Glez MD [address] [place] [address] [phone] documented as of this encounter Goals Goal [...] for health insurance by looking in to [employer] and talking with a FRW. Completed 3. I will look for a new job and will access resources that the [employer] offers. . Sarted new job 4. Continue [...] Education Needed to Optimize Self-Care Behaviors No Rose Mcdowelle A, RN Monitoring - monitor glucose and ketones [...] accurate information and submit it to the [facility]. 3. I will update CCC Team at outreach. HbA1C Not In Goal 04/28/2023 Diabetes Self-Management Edu cation Needed to Optimize Self-Care Behaviors 04/28/2023 Assessment Noted Time PHQ-9 Depression Total Score: 4 10/13/19 24 3:39 PM CDT documented as of this encounter Care Teams Fast Food Sales Assistant Relationship Specialty [place] [address] [place] [address] PCP - General Family Practice 07/11/14 [place] [address] [place] [address] Assigned PCP 12/16/11 Christy Campuzano PA-C [address] [place] [address] [id number] Referring Physician Family Medicine 04/22/20 Hans Cannon MD [address] [place] [address] Resident Pulmonary Disease 04/22/20 Burt Jovel MD [address] [place] [address] 825512 Internal Medicine 05/08/20 12/13/23 Estella Hassan, [facility] [employer] [place], [place] 744436 Pharmacist Pharmacist 05/26/20 lEaina Moreno MD [address] [place] [address] Cardiovascular & Thoracic Surgery 08/06/20 John Webb MD [address] [address] Cardiovascular Disease 08/25/21 John Webb MD [address] [address] Cardiovascular Disease 08/25/21 Estella Hassan, [facility] [place] [address] Assigned MTM Pharmacist 12/09/21 Lindsay Caery OD [address] [facility] [place] [address] Ophthalmology 01/29/22 Richard Kam MD 500 [place], [place] [phone] Assigned Musculoskeletal Provider 08/14/22 [place] [address] BC PENA, [address] 211637 Assigned Neuroscience Provider 01/01/23 Rosemarie Mcdowell RN Jingle Writer Diabetes Education 03/17/23 Ravi Brownlee MD [address] [place] [address] 276 [place], [place] 785365 Assigned Heart and Vascular Provider 09/04/23 01/03/24 documented as of this encounter
--- OUTSIDE RECORDS SUMMARY | 2024-01-31 20:06 | XMS_ITS | Encounter Summary ---
Author Organization [facility] Address [address] [place] [address] Care Team Providers Care Department Secretary Name Role Phone Va Glez MD Primary Care Provider Va Glez MD Unavailable Christy Campuzano PA-C Unavailable Hans Cannon MD Unavailable Burt Jovel MD Unavailable Estella Hassan [facility] Unavailable [phone] Josh Cordero MD, Madhuri Unavailable [phone] John Webb MD Unavailable John Webb MD Unavailable [phone] [facility] Unavailable Lindsay Carey OD Unavailable Richard Kam MD Unavailable Gaby Vila DO Unavailable Rosemarie Mcdowell RN Unavailable Ravi Brownlee MD Unavailable [phone] Encounter Details Date Type Department Care Team (Latest Contact Info) Description 11/20/2023 Travel Social History Tobacco Use Types Packs/Day [...] week 10/20/2022 How often do you attend [facility] or anglican services? More than 4 times per year 10/20/2022 Do you belong to any clubs o r organizations such as sabianism groups, unions, fraternal or athletic groups, or [...] Answer Date Recorded PHQ-2 Score 1 10/13/2023 [facility] - Occupational Stress Questionnaire [...] in an overnight detention, 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.) Yes 03/18/2023 Are you worried [...] on file Legal 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 ACCOUNT MANAGEMENT ASSISTANT Gender Identity Not on file Sexual Orientation Not on file Occupation Industry Job Start Date Job End Date Not on file Not on file Not on file Not on file documented as of this encounter Plan of Treatment Upcoming Encounters Date Type Department Care Team (Late st Contact Info) Description 02/01/2024 3:00 PM ACCOUNT MANAGEMENT ASSISTANT Office Visit [facility] [place] 3012 [facility] [place] [phone] Manuel Ahn, [address] [facility] [place] [address] 02/02/2024 1:30 PM ACCOUNT MANAGEMENT ASSISTANT Therapy Visit [facility] [address] [place] [address] Alicja Roldan, OT 909 [place] [address] 02/05/2024 8:00 PM ACCOUNT MANAGEMENT ASSISTANT Therapy Visit [facility] [place] 6363 [facility] 103 [place] [phone] 02/13/2024 4:30 PM ACCOUNT MANAGEMENT ASSISTANT Oncology Visit [facility] 909 [place] [phone] Marian Agustin, [facility] 420 [facility] 207 [place], [place] [address] 03/01/2024 7:00 AM ACCOUNT MANAGEMENT ASSISTANT Office Visit [facility] [address] [place] [phone] Estella Hassan, [facility] 3033 [place] [address] 03/23/2024 2:00 PM ACCOUNT MANAGEMENT ASSISTANT Office Visit [facility] [address] [place] [phone] Lizet Mann PA-C 717 [place] [address] 03/29/2024 3:30 PM ACCOUNT MANAGEMENT ASSISTANT Office Visit [facility] 2945 [facility] 200 [place] [phone] Hakeem Chacko MBBS 2945 [place] [address] 05/03/2024 3:00 PM ACCOUNT MANAGEMENT ASSISTANT Office Visit [facility] [address] [place] [phone] Gaurav Valenzuela, EXCHANGE FLOOR MANAGER [facility] [address] [place] [address] 05/22/2024 10:30 AM CDT Office Visit [facility] [address] [place] [phone] Estella Hassan, [facility] [address] [place] [address] 05/22/2024 11:30 AM CDT Office Visit [facility] [address] [place] [phone] [place] [address] [place] [address] documented as of this encounter [...] for health insurance by looking in to [employer] and talking with a FRW. Completed 3. I will look for a new job and will access resources that the [employer] offers. . Sarted new job 4. Continue [...] documented as of this encounter Care Teams Department Secretary Relationship Specialty [place] [address] [place] [address] PCP - General Family Practice 07/11/14 [place] [address] [place] [address] Assigned PCP 12/16/11 Christy Campuzano PA-C [address] [place] [address] Referring Physician Family Medicine 04/22/20 Hans Cannon MD [address] [place] [address] Resident Pulmonary Disease 04/22/20 Burt Jovel MD [address] [place] [address] 203112 Internal Medicine 05/08/20 12/13/23 Estella Hassan, [facility] 3033 [place] [address] Pharmacist Pharmacist 05/26/20 Elaina Moreno MD [address] [place] [address] Cardiovascular & Thoracic Surgery 08/06/20 John Webb MD [address] [place] [address] Cardiovascular Disease 08/25/21 John Webb MD [address] [place] [address] Cardiovascular Disease 08/25/21 [facility] [place] [address] Assigned MTM Pharmacist 12/09/21 Lindsay Carey OD [address] [facility] [place] [place] [address] Ophthalmology 01/29/22 Richard Kam MD [address] [place] [address] 276745 Assigned Musculoskeletal Provider 08/14/22 [place] [address] 314277 Assigned Neuroscience Provider 01/01/23 Rosemarie Mcdowell, RN Hotel Front Desk Clerk Diabetes Education 03/17/23 Ravi Brownlee MD [address] [place] [address] Assigned Heart and Vascular Provider 09/04/23 01/03/24 documented as of this encounter
--- OUTSIDE RECORDS SUMMARY | 2024-01-31 20:06 | XMS_ITS | Encounter Summary ---
Author Organization [place] Address [address] [place] [address] Care Team Providers Care Care Professionals Name Role Phone Va Glez MD Primary Care Provider [phone] Va Glez MD Unavailable Christy Campuzano PA-C Unavailable Hans Cannon MD Unavailable [phone] Burt Jovel MD Unavailable [phone] Estella Hassan [facility] Unavailable Josh Cordero MD, Madhuri Unavailable [phone] John Webb MD Unavailable [phone] John Webb MD Unavailable Estella Hassan [facility] Unavailable Lindsay Carey OD Unavailable [phone] Richard Kam MD Unavailable Gaby Vila DO Unavailable Rosemarie Mcdowell RN Unavailable Ravi Brownlee MD Unavailable Encounter Details Date Type Department Care Team (Latest Contact Info) Description 11/11/2023 Travel Social History Tobacco Use Types Packs/Day [...] week 10/20/2022 How often do you attend [facility] or jewish services? More than 4 times per year 10/20/2022 Do you belong to any clubs o r organizations such as zoroastrianism groups, unions, fraternal or athletic groups, or [...] PHQ-2 Score 1 10/13/2023 [facility] - Occupational Stress Questionnaire [...] an overnight care home, 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.) Yes 03/18/2023 Are you [...] on file Legal 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 MAKER UP FOLDING Gender Identity Not on file Sexual Orientation Not on file Occupation Industry Job Start Date Job End Date Not on file Not on file Not on file Not on file documented as of this encounter Plan of Treatment Upcoming Encounters Date Type Department Care Team (Late st Contact Info) Description 02/01/2024 3:00 PM MAKER UP FOLDING Office Visit [facility] [place] [address] [facility] [place] [address] Manuel Ahn, 7926 [facility] [place] [address] 02/02/2024 1:30 PM MAKER UP FOLDING Therapy Visit [facility] [address] [place] [place] [address] Alicja Roldan, OT 909 [place] [address] 02/05/2024 8:00 PM MAKER UP FOLDING Therapy Visit [facility] [place] 6363 [facility] 103 [place] [phone] 02/13/2024 4:30 PM MAKER UP FOLDING Oncology Visit [facility] 909 [place] [phone] Marian Agustin, N[facility]SA [facility] 420 [facility] 207 [place], [place] 8[address] 03/01/2024 7:00 AM MAKER UP FOLDING Office [facility] [address] [place] [phone] Estella Hassan, [facility] 3033 [place] [address] 03/23/2024 2:00 PM MAKER UP FOLDING Office Visit [facility] [address] [place] [phone] Lizet Mann PA-C 717 [place] [address] 03/29/2024 3:30 PM MAKER UP FOLDING Office Visit [facility] 2945 [facility] 200 [place] [phone] Hakeem Chacko MBBS 2945 [place] [address] 05/03/2024 3:00 PM MAKER UP FOLDING [facility] [address] [place] [phone] Gaurav Valenzuela, PUBLIC ADDRESS SYSTEM OPERATOR [facility] [address] [place] [address] 05/22/2024 10:30 AM CDT Office [facility] [address] [place] [phone] Estella Hassan, [facility] [address] [place] [address] 05/22/2024 11:30 AM CDT Office [facility] [address] [place] [address] [place] [address] [place] [address] documented as of this encounter [...] for health insurance by looking in to [employer] and talking with a FRW. Completed 3. I will look for a new job and will access resources that the [employer] offers. . Sarted new job 4. Continue [...] documented as of this encounter Care Teams Care Professionals Relationship Specialty [place] [address] [place] [address] PCP - General Family Practice 07/11/14 [place] [address] [place] [address] Assigned PCP 12/16/11 Christy Campuzano PA-C [address] [place] [address] 742722 Referring Physician Family Medicine 04/22/20 Hans Cannon MD [address] [place] [address] 703632 Resident Pulmonary Disease 04/22/20 Burt Jovel MD [address] [place] [address] 568852 Internal Medicine 05/08/20 12/13/23 Estella Hassan, [facility] [address] [place] [address] Pharmacist Pharmacist 05/26/20 Elaina Moreno MD 909 [place], [place] 221035 Cardiovascular & Thoracic Surgery 08/06/20 John Webb MD [address] [place] 368945 Cardiovascular Disease 08/25/21 John Webb MD [address] [place] 568935 Cardiovascular Disease 08/25/21 Estella Hassan, [facility] 3033 [place], [place] 319216 Assigned MTM Pharmacist 12/09/21 Lindsay Carey OD [address] [facility] [place] [address] Ophthalmology 01/29/22 Richard Kam MD [address] [place] [address] Assigned Musculoskeletal Provider 08/14/22 [place] [address] [place], [address] [address] Assigned Neuroscience Provider 01/01/23 Rosemarie Mcdowell, RN Hogshead Head Matcher Diabetes Education 03/17/23 Ravi Brownlee MD [address] [place] [address] 276 [place], [place] 062555 Assigned Heart and Vascular Provider 09/04/23 01/03/24 documented as of this encounter
--- OUTSIDE RECORDS SUMMARY | 2024-01-31 20:06 | XMS_ITS | Encounter Summary ---
Author Organization [place] Address [address] [place] [address] Care Team Providers Care Bag Machine Set Up Operator Name Role Phone Va Glez MD Primary Care Provider Va Glez MD Unavailable Christy CampuzanoC Unavailable Hans Cannon MD Unavailable Burt Jovel MD Unavailable Estella Hassan [facility] Unavailable [phone] Josh Cordero MD, Madhuri Unavailable [phone] John Webb MD Unavailable John Webb MD Unavailable Estella Hassan [facility] Unavailable [phone] Lindsay Carey OD Unavailable Richard Kam MD Unavailable Gbay Vila DO Unavailable Rosemarie Mcdowell RN Unavailable Ravi Brownlee MD Unavailable Mitra Kendall PARKS RECREATION COORDINATOR Unavailable Lizet MannC Unavailable [phone] Ravi Brownlee MD Unavailable Nav Hughes MD Unavailable [phone] Dayday Ahnen Kunal OD Unavailable FishmanArabella MA Unavailable [phone] YfnAllen hernandezlla [facility] Unavailable Unavailable Reason for Visit * Reason Onset Date Comments Call Back 11/23/2023 Encounter Details Date Type Department Care Team (Late st Contact Info) Description 11/23/2023 Telephone [facility] [place] [address] [place] [address] Ravi Brownlee MD 420 [facility] 276 [place] [address] Call Back Social History Tobacco Use Types [...] How often do you attend [facility] or congregational services? More than 4 times per year [...] 1 10/13/2023 [facility] ional Health - Occupational Stress [...] in an overnight longterm, 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.) Yes 03/18/2023 Are you worried [...] on file Legal 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 BOARD DESIGN ENGINEER Gender Identity Not on file Sexual Orientation Not on file Occupation Industry Job Start Date Job End Date Not on file Not on file Not on file Not on file documented as of this encounter Miscellaneous Notes * Telephone Encounter - Dino Ponce RN - 11/23/2023 3:10 PM CDT Called patient back. Unable to LVM due to full mailbox. Dino Ponce, RN * Telephone Encounter - Lizett Dos Santos - 11/23/2023 1:42 PM CDT M [facility] Call Center Phone Message May a detailed message be left on voicemail: yes Reason for Call: Other: Pt requesting a call back from Ifeanyi to discuss his medication. Action Taken: Other: Pulm Travel Screening: Not Applicable Date of Service: documented in this encounter Plan of Treatment Upcoming Encounters Date Type Department Care Team (Late st Contact Info) Description 02/01/2024 3:00 PM BOARD DESIGN ENGINEER Office Visit [address] [phone] Manuel Ahn, 6341 [place] [address] 02/02/2024 1:30 PM BOARD DESIGN ENGINEER Therapy Visit [facility] [place] [facility] [place] [address] [phone] Alicja Roldan, OT 909 [place] [address] 02/05/2024 8:00 PM BOARD DESIGN ENGINEER Therapy Visit [facility] [place] 6363 [facility] 103 [place] [address] 02/13/2024 4:30 PM BOARD DESIGN ENGINEER Oncology [facility] 909 [facility] [place] [phone] Marian Agustin, NESSA ATOMIC PHYSICS PROFESSOR 420 [facility] 207 [place] [address] 03/01/2024 7:00 AM BOARD DESIGN ENGINEER Office Visit [facility] [address] [place] [phone] Estella Hassan, [facility] 3033 [place] [address] 03/23/2024 2:00 PM BOARD DESIGN ENGINEER Office Visit [facility] [address] [place] [address] [place] [address] Lizet Mann PA-C 717 [facility] [place] [address] 03/29/2024 3:30 PM BOARD DESIGN ENGINEER Office Visit [facility] 2945 [facility] 200 [place] [phone] Hakeem Chacko MBBS 2945 [place] [address] 05/03/2024 3:00 PM BOARD DESIGN ENGINEER Office Visit [facility] [place] [address] [place] [phone] Gaurav Valenzuela, OPERATIONS ARCHITECT [facility] [address] [place] [address] 05/22/2024 10:30 AM CDT Office Visit [facility] [address] [place] [phone] Estella Hassan, [facility] [address] [place] [address] 05/22/2024 11:30 AM CDT Office Visit [facility] [address] [place] [phone] [place] [address] [place], [place] [phone] documented as of this encounter Goals Goal [...] for health insurance by looking in to [employer] and talking with a FRW. Completed 3. I will look for a new job and will access resources that the [employer] offers. . Sarted new job 4. [...] accurate information and submit it to the [facility]. 3. I will update CCC Team at outreach. HbA1C Not In Goal 04/28/2023 Diabetes Self-Management Edu cation Needed to Optimize Self-Care Behaviors 04/28/2023 Infection Onset Date Last Indicated Resolved Time Rule Out COVID-19 12/27/2023 12/27/2023 12/29/2023 1:37 PM CDT Assessment Noted Time PHQ-9 Depression Total Score: 4 10/13/19 3:39 PM CDT documented as of this encounter Care Teams Bag Machine Set Up Operator Relationship Specialty [place] [address] [place] [address] PCP - General Family Practice 07/11/14 [place] [address] [place] [address] Assigned PCP 12/16/11 Christy Campuzano PA-C [address] [place] [address] [phone] Referring Physician Family Medicine 04/22/20 Hans Cannon MD [address] [place] [address] 269582 Resident Pulmonary Disease 04/22/20 Burt Jovel MD [address] [place] [address] 066292 Internal Medicine 05/08/20 12/13/23 Estella Hassan, [facility] 3033 [place] [address] Pharmacist Pharmacist 05/26/20 Elaina Moreno MD [address] [place] [address] Cardiovascular & Thoracic Surgery 08/06/20 John Webb MD 6405 [place] [address] Cardiovascular Disease 08/25/21 John Webb MD 6[address] [place] [address] Cardiovascular Disease 08/25/21 Estella Hassan, [facility] 3033 [place] [address] Assigned MTM Pharmacist 12/09/21 Lindsay Carey OD [address] [place] [address] [place] [address] Ophthalmology 01/29/22 Richard Kam MD [address] [place] [address] 688735 Assigned Musculoskeletal Provider 08/14/22 [place] [address] 480577 Assigned Neuroscience Provider 01/01/23 Rosemarie Mcdowell, RN Couples Therapist Diabetes Education 03/17/23 Ravi Brownlee MD [address] [place] [address] 300675 Assigned Heart and Vascular Provider 09/04/23 01/03/24 Mitra Kendall, PARKS RECREATION COORDINATOR Lead Vacuum Cleaner Repairer Primary Care - CC 12/12/23 Lizet Mann PA-C 717 [place], [place] 454995 Assigned Cancer Care Provider 01/04/24 Ravi Brownlee MD 420 [facility] 276 [place], [place] [phone] Assigned Pulmonology Provider 01/04/24 Nav Hughes MD [address] [place] 838065 Assigned Heart and Vascular Provider 01/04/24 Manuel Ahn OD 6341 [facility] [place] [place] [phone] Show Horse Driver 01/05/24 Arabella Fishman MA Financial Resource Worker 01/06/24 Thalia Charles [facility] Pharmacist Pharmacy 01/26/24 documented as of this encounter
--- OUTSIDE RECORDS SUMMARY | 2024-01-31 20:07 | XMS_ITS | Encounter Summary ---
Author Organization [place] Address [address] [place] [address] Care Team Providers Care Armor Reconnaissance Vehicle Crewman Name Role Phone Va Glez MD Primary Care Provider [phone] Va Glez MD Unavailable Christy Campuzano PA-C Unavailable Hans Cannon MD Unavailable Burt Jovel MD Unavailable Estella Hassan [facility] Unavailable Josh Cordero MD, Madhuri Unavailable [phone] John Webb MD Unavailable John Webb MD Unavailable [phone] Estella Hassan [facility] Unavailable Lindsay Carey OD Unavailable [phone] Richard Kam MD Unavailable Gaby Vila DO Unavailable Rosemarie Mcdowell RN Unavailable [phone] Ravi Brownlee MD Unavailable Reason for Referral * Medication Prior Authorization - Denied Specialty Diagnoses / Procedures Referred By Contac t Referred To Contact Diagnoses Type 2 diabetes mellitus with hyperglycemia, without long-term current use of insulin (H) [place] [address] [place] [address] Phone: tel: fax: Referral ID Status Reason Start Date Expiration Date Visits Re quested Visits Authorized [id number] Denied 10/26/2023 10/25/2024 1 1 Reason for Visit * Reason Comments Med Change Request Encounter Details Date Type Department Care Team (Late st Contact Info) Description 10/25/2023 [facility] [address] [place] [address] [place] [address] [place], [place] [phone] Med Change Request Social History Tobacco Use [...] How often do you attend [facility] or temple services? More than 4 times per year 10/20/2022 Do you belong to any clubs o r organizations such as mormon groups, unions, fraternal or athletic groups, or [...] Answer Date Recorded PHQ-2 Score 1 10/13/2023 [facility] - Occupational Stress Questionnaire [...] on file Legal 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 DIETITIAN TEACHER Gender Identity Not on file Sexual Orientation Not on file Occupation Industry Job Start Date Job End Date Not on file Not on file Not on file Not on file documented as of this encounter Plan of Treatment Upcoming Encounters Date Type Department Care Team (Late st Contact Info) Description 02/01/2024 3:00 PM DIETITIAN TEACHER Office Visit [facility] 6341 [place] [address] Manuel Ahn, [address]341 [place] [address] 02/02/2024 1:30 PM DIETITIAN TEACHER Therapy Visit [facility] [place] [facility] [place] [address] [facility] [address] [place] [phone] Alicja Roldan, OT 909 [place] [address] 02/05/2024 8:00 PM DIETITIAN TEACHER Therapy Visit [facility] [place] [address] [place] [address] 103 [place] [phone] 02/13/2024 4:30 PM DIETITIAN TEACHER Oncology Visit [facility] 909 [place] [phone] Marian Agustin, [facility] 420 [facility] 207 [place] [address] 03/01/2024 7:00 AM DIETITIAN TEACHER Office Visit [facility] [address] [place] [phone] Estella Hassan, [facility] 3033 [place] [address] 03/23/2024 2:00 PM DIETITIAN TEACHER Office Visit [facility] [address] [place] [address] Lizet Mann PA-C 717 [place] [address] 03/29/2024 3:30 PM DIETITIAN TEACHER Office Visit [facility] 2945 [facility] 200 [place] [address] Hakeem Chacko MBBS 2945 [place] [address] 05/03/2024 3:00 PM DIETITIAN TEACHER Office Visit [facility] [place] [address] [place] [phone] Gaurav Valenzuela, GRAB DRIVER [facility] [address] [place] [address] 05/22/2024 10:30 AM CDT Office Visit [address] [phone] Estella Hassan, [facility] 3033 [place] [address] 05/22/2024 11:30 AM CDT Office [facility] [address] [place] [phone] [place] [address] [place], [place] [phone] documented as of this encounter Goals Goal Patient Goal Type Associated Problems Recent Progress Patient-Stated? Author Health Maintenance Care Plan HP GENERAL PROBLEM 100%( 023 10:17 AM CDT) No Mitra Kendall, BUSINESS CONTINUITY PLANNING DIRECTOR Note: Update on 05/25/22 Barriers: Currently without [...] for health insurance by looking in to [employer] and talking with a FRW. Completed 3. I will look for a new job and will access resources that the [employer] offers. . Sarted new job 4. Continue [...] documented as of this encounter Care Teams Armor Reconnaissance Vehicle Crewman Relationship Specialty [place] [address] [place] [address] PCP - General Family Practice 07/11/14 [place] [address] [place] [address] Assigned PCP 12/16/11 Christy Campuzano PA-C [address] [place] [address] 692322 Referring Physician Family Medicine 04/22/20 Hans Cannon MD [address] [place] [address] Resident Pulmonary Disease 04/22/20 Burt Jovel MD [address] [place] [address] 588662 Internal Medicine 05/08/20 12/13/23 Estella Hassan, [facility] [address] [place] [address] 354956 Pharmacist Pharmacist 05/26/20 Elaina Moreno MD [address] [place] [address] 148565 Cardiovascular & Thoracic Surgery 08/06/20 John Webb MD [address] [place] 081365 Cardiovascular Disease 08/25/21 John Webb MD [address] 443695 Cardiovascular Disease 08/25/21 Estella Hassan, [facility] [place] [address] Assigned MTM Pharmacist 12/09/21 Lindsay Carey OD [address] [facility] [place] [address] Ophthalmology 01/29/22 Richard Kam MD 500 [place] [address] Assigned Musculoskeletal Provider 08/14/22 [place] [address] [place], [address] [address] Assigned Neuroscience Provider 01/01/23 Rosemarie Mdcowell RN Head Setter Diabetes Education 03/17/23 Ravi Brownlee MD [address] [place] [address] 276 [place], [place] 517265 Assigned Heart and Vascular Provider 09/04/23 01/03/24 documented as of this encounter
--- OUTSIDE RECORDS SUMMARY | 2024-01-31 20:07 | XMS_ITS | Encounter Summary ---
Author Organization [facility] Address [address] [place] [address] Care Team Providers Care Manager Image Name Role Phone Va Glez MD Primary Care Provider Va Glez MD Unavailable Christy Campuzano PA-C Unavailable Hans Cannon MD Unavailable Burt Jovel MD Unavailable Estella Hassan [facility] Unavailable Josh Cordero MD, Madhuri Unavailable [phone] John Webb MD Unavailable John Webb MD Unavailable Estella Hassan [facility] Unavailable Lindsay Carey OD Unavailable Richard Kam MD Unavailable Gaby Vila DO Unavailable [phone] Rosemarie Mcdowell RN Unavailable Ravi Brownlee MD Unavailable Encounter Details Date Type Department Care Team (Latest Contact Info) Description 11/06/2023 Travel Social History Tobacco Use Types Packs/Day [...] week 10/20/2022 How often do you attend [facility] or worship services? More than 4 times per year 10/20/2022 Do you belong to any clubs o r organizations such as orthodoxy groups, unions, fraternal or athletic groups, or [...] PHQ-2 Score 1 10/13/2023 [facility] - Occupational Stress Questionnaire [...] on file Legal 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 CHICKEN SEXER Gender Identity Not on file Sexual Orientation Not on file Occupation Industry Job Start Date Job End Date Not on file Not on file Not on file Not on file documented as of this encounter Plan of Treatment Upcoming Encounters Date Type Department Care Team (Late st Contact Info) Description 02/01/2024 3:00 PM CHICKEN SEXER Office Visit [facility] [address] [facility] [place] [phone] Manuel Ahn, [address] [facility] [place] [address] 02/02/2024 1:30 PM CHICKEN SEXER Therapy Visit [facility] [address] [place] [address] Alicja Roldan, OT 909 [place] [address] 02/05/2024 8:00 PM CHICKEN SEXER Therapy Visit [facility] [place] 6363 [facility] 103 [place] [phone] 02/13/2024 4:30 PM CHICKEN SEXER Oncology Visit [facility] 909 [place] [phone] Marian Agustin, [facility] 420 [facility] 207 [place], [place] [address] 03/01/2024 7:00 AM CHICKEN SEXER Office Visit [facility] [address] [place] [phone] Estella Hassan, [facility] 3033 [place] [address] 03/23/2024 2:00 PM CHICKEN SEXER Office Visit [facility] [address] [place] [phone] Lizet Mann PA-C 717 [place] [address] 03/29/2024 3:30 PM CHICKEN SEXER Office Visit [facility] 2945 [facility] 200 [place] [phone] Hakeem Chacko MBBS 2945 [place] [address] 05/03/2024 3:00 PM CHICKEN SEXER Office Visit [facility] [address] [place] [phone] Gaurav Valenzuela, MORTGAGE OPERATIONS MANAGER [facility] [address] [place] [address] 05/22/2024 10:30 AM CDT Office Visit [facility] [address] [place] [phone] Estella Hassan, [facility] [address] [place] [address] 05/22/2024 11:30 AM CDT Office Visit [facility] [address] [place] [phone] [place] [address] [place] [address] documented as of this encounter [...] for health insurance by looking in to [employer] and talking with a FRW. Completed 3. I will look for a new job and will access resources that the [employer] offers. . Sarted new job 4. Continue [...] Last Indicated Resolved Time Rule Out COVID-19 11/06/2023 11/06/2023 11/06/2023 11:05 PM CDT Assessment Noted Time PHQ-9 Depression Total Score: 4 10/13/19 3:39 PM CDT documented as of this encounter Care Teams Manager Image Relationship Specialty [place] [address] [place] [address] PCP - General Family Practice 07/11/14 [place] [address] [place] [address] Assigned PCP 12/16/11 Christy Campuzano PA-C [address] [place] [address] Referring Physician Family Medicine 04/22/20 Hans Cannon MD [address] [place] [address] Resident Pulmonary Disease 04/22/20 Burt Jovel MD [address] [place] [address] 101142 Internal Medicine 05/08/20 12/13/23 Estella Hassan, [facility] 3033 [place] [address] Pharmacist Pharmacist 05/26/20 Elaina Moreno MD [address] [place] [address] Cardiovascular & Thoracic Surgery 08/06/20 John Webb MD [address] [place] [address] Cardiovascular Disease 08/25/21 John Webb MD [address] [place] [address] Cardiovascular Disease 08/25/21 [facility] [place] [address] Assigned MTM Pharmacist 12/09/21 Lindsay Carey OD [address] [facility] [address] Ophthalmology 01/29/22 Richard Kam MD [address] [place] [address] [id number] Assigned Musculoskeletal Provider 08/14/22 [place] [address] 035317 Assigned Neuroscience Provider 01/01/23 Rosemarie Mcdowell, RN Pulmonary Disease Specialist Diabetes Education 03/17/23 Ravi Brownlee MD [address] [place] [address] Assigned Heart and Vascular Provider 09/04/23 01/03/24 documented as of this encounter
--- OUTSIDE RECORDS SUMMARY | 2024-01-31 20:07 | XMS_ITS | Encounter Summary ---
Author Organization [facility] Address [address] [place] [address] Care Team Providers Care Monologist Name Role Phone Va Glez MD Primary Care Provider [phone] Va Glez MD Unavailable Christy Campuzano PA-C Unavailable Hans Cannon MD Unavailable [phone] Burt Jovel MD Unavailable [phone] Estella Hassan [facility] Unavailable Josh Cordero MD, Madhuri Unavailable [phone] John Webb MD Unavailable John Webb MD Unavailable Estella Hassan [facility] Unavailable [phone] Lindsay Carey OD Unavailable Richard Kam MD Unavailable Gaby Vila DO Unavailable [phone] Rosemarie Mcdowell RN Unavailable Ravi Brownlee MD Unavailable [phone] Reason for Visit * Reason Comments Medication Therapy Management Encounter Details Date Type Department Care Team (Late st Contact Info) Description 10/25/2023 3:30 PM CDT [facility] [address] [phone] Estella Hassan, [facility] 3033 [place] [address] Type 2 diabetes mellitus without complication, without long-term current use of insulin (H) (Primary Dx); Morbid obesity due to excess calories (H); LUZ (generalized anxiety disorder); Major depressive disorder, recurrent episode, moderate (H); Chronic pain of right knee Social History Tobacco Use Types Packs/Day Years [...] often do you attend chur ch or methodist services? More than 4 times per year [...] Answer Date Recorded PHQ-2 Score 1 10/13/2023 [facility] ional Health - Occupational Stress [...] on file Legal 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 BRONZE CHASER Gender Identity Not on file Sexual Orientation Not on file Occupation Industry Job Start Date Job End Date Not on file Not on file Not on file Not on file documented as of this encounter Last Filed Vital Signs Vital Sign Reading Time Taken Comments Blood Pressure 119/76 10/25/2023 3:32 PM CDT Pulse - - Temperature - - Respiratory Rate - - Oxygen Saturation - - Inhaled Oxygen Concentration - - Weight 135.2 kg (298 lb) 10/25/2023 3:32 PM CDT Height - - Body Mass Index 44.65 10/13/2023 3:20 PM CDT documented in this encounter Patient Instructions * Patient Instructions* Thalia Charles RPH - 10/25/2023 3:30 PM CDT Recommendations from today's MTM visit: Increase Ozempic to 1 mg weekly on Tuesdays for 3 weeks, then increase to Ozempic 2 mg weekly. We sent a new Rx for Ozempic 2 mg today. Bring in Mobie glucose monitor to your next visit so we can get it set up together. If you have an instance of feeling shaky, dizzy, and weak, check your blood sugar and write it downto determine if it is a low blood sugar. It was great speaking with you today. I value your experience and would be very thankful for your time in providing feedback in our clinic survey. In the next few days, you may receive an email or text message from [employer] with a link to a survey related to your ???clinical pharmacist. To schedule another MTM appointment, please call the clinic directly or you may call the MTM scheduling line at [phone] or toll-free at . My Clinical Pharmacist's contact information: Please feel free to contact me with any questions or concerns you have. Roz Charles, PharmD Medication Therapy Management Epic Trainer Estella Hassan, ThomD, BCACP Medication Therapy Management Provider, [facility] documented in this encounter Progress Notes * Estella Hassan RPH - 10/25/2023 3:30 PM CDT Medication Therapy Management (MTM) Encounter ASSESSMENT: Medication Adherence/Access: No issues identified Diabetes/Obesity: Patient is not meeting A1c goal of < 7%. Microalbumin is at goal < 30mg/g. Patient would benefit from regular blood sugar monitoring and/or learning how to use levar properly. This way, we can see if he is having any lows or consistent highs and manage medications properly.Patient would benefit from increasing dose of semaglutide for better A1c lowering and weight loss. Future discuss starting low dose aspirin for preventative therapy as ASCVD risk >10% Mental Health (depression/anxiety): Recommend patient work on sleep hygiene and decreasing caffeine intake to increase amount and quality of sleep. Continue to monitor anxiety/depression symptoms. Knee pain: Recommend using acetaminophen vs. Ibuprofen for knee pain as acetaminophen is safer for heart and kidneys. Continue following with sports medicine and OT. PLAN: Increase Ozempic to 1 mg weekly for 3 weeks, then increase to Ozempic 2 mg weekly. New Rx for Ozempic 2 mg sent today. Bring in [employer] levar glucose monitor to your next visit so we can get it set up together. If you have an instance of feeling shaky, dizzy, and weak, check your blood sugar to determine if it is due to a low blood sugar Limit caffeine intake; do not drink any caffeine past 2 pm. Limit screen time before bed, and set a bedtime where you will turn off electronics and actively try to fall asleep. Recommend using acetaminophen for pain instead of ibuprofen to avoid unnecessary side effects. Follow-up: Return in about 1 month (around 11/25/2023) for Medication Therapy Management, Follow up. SUBJECTIVE/OBJECTIVE: Peter Devi is a 63 year old male seen for a follow-up visit from 09/12 with Estella Hassan. Reason for visit: diabetes follow up. Allergies/ADRs: Reviewed in chart Past Medical History: Reviewed in chart Tobacco: He reports that he quit smoking about 39 years ago. His smoking use included cigarettes. He has never used smokeless tobacco. Alcohol: not currently using Medication Adherence/Access: no issues reported Diabetes /Obesity Metformin 2000 mg daily with supper Ozempic 0.5 mg weekly - has 1 mg pens but has been injecting only 0.5 mg (3x 1 mg doses left) Glipizide XL 10 mg (increase from 5 mg daily 09/12) Side effects: patient feels shaky once in a while, but does not attribute this to low blood sugar. He denies dizziness, sweating, and feeling faint. He notes that he is not able to eat large portionsof food anymore. He used to eat a full pizza, but now has 2 slices and feels full. He also notices he sometimes wakes up in the middle of the night feeling hungry. Blood sugar monitoring: infrequent; he did buy a freestyle levar and tried to use it, but does not think he applied it correctly as it fell off quickly after application. Took his blood glucose once in the past few weeks in the evening and got a reading in the 230s Current symptoms: none, denies GI side effects Diet/Exercise: Drinking a lot of pop late at night, but has tried to be more mindful of caffeine content, drinking more 7-up, larisa, and propel. 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 Eye exam in the last 12 months? No Foot exam: due Mental Health Anxiety and Depression Escitalopram 10 mg once daily. Patient reports no current medication side effects. Current symptoms include: mind racing at night, trouble falling asleep. Notes that he feels a little bit down and anxious in the past month, but overall is manageable. Feeling tired frequently, though this may be related to poor sleep. Patient notes he has been drinking caffeine in the evenings and staying up on his phone or watchingTV. If he is really tired or has a big day, he does not have trouble falling asleep. Patient is not seeing a therapist. Patient is not seeing a psychiatrist. Knee pain: Acetaminophen 500-1000 mg three times daily as needed (only using 1x/day if not using ibuprofen) Ibuprofen 200-400 mg three times daily as needed (only using 1x/day if not using acetaminophen) Voltaren gel 1% as needed - smells so limits use Previously tried: Biofreeze, lidocaine patches - all of them worked ok, but he could not stand the smell Symptoms: pain when walking up the stairs, sometimes notices more pain when it is hot outside Only needing as needed medication 1x/day max. Both acetaminophen and ibuprofen seem to work well. Seeing rheumatology in 03/2024 to assess underlying causes; also following with sports medicine andOT Getting procedure done at [facility] this Friday 10/27 - Genicular artery embolization (GAE) for knee pain Today's Vitals: BP 119/76 Wt 298 lb (135.2 kg) BMI 44.65 kg/m?? I spent 30 minutes with this patient today. All changes were made via collaborative practice agreement with Va Glez. A copy of the visit note was provided to the patient's provider(s). A summary of these recommendations was given to the patient. Roz Charles PharmD Medication Therapy Management Epic Trainer Pager: [phone] Thom RoblesD, BCACP Medication Therapy Management Provider, [facility] [phone] Medication Therapy Recommendations Right knee pain Rationale: Unsafe medication for the patient - Adverse medication event - Safety Recommendation: Change Medication - acetaminophen 500 MG tablet Status: Accepted - no CPA Needed Note: Recommend taking acetaminophen instead of ibuprofen Type 2 diabetes mellitus with hyperglycemia, without long-term current use of insulin (H) Current Medication: Semaglutide, 1 MG/DOSE, (OZEMPIC) 4 MG/3ML pen (Discontinued) Rationale: Dose too low - Dosage too low - Effectiveness Recommendation: Increase Dose - Semaglutide (2 MG/DOSE) 8 MG/3ML pen Status: Accepted per CPA Rationale: Medication requires monitoring - Needs additional monitoring Recommendation: Provide Education - FreeStyle Levar 2 Sensor Misc Status: Accepted per CPA Note: Important to monitor when feeling symptoms of low blood sugar. Bring in levar to learn properapplication. documented in this encounter Plan of Treatment Upcoming Encounters Date Type Department Care Team (Late st Contact Info) Description 02/01/2024 3:00 PM BRONZE CHASER Office Visit [address] [place] [phone] Manuel Ahn, [address]41 [place] [address] 02/02/2024 1:30 PM BRONZE CHASER Therapy Visit [facility] [address] [facility] [address] [place] [phone] Alicja Roldan OT 909 [place] [address] 02/05/2024 8:00 PM BRONZE CHASER Therapy Visit [facility] [place] 6363 [facility] 103 [place] [phone] 02/13/2024 4:30 PM BRONZE CHASER Oncology Visit [facility] 909 [place] [phone] Marian Agustin, OUTSIDE EVENT SALES SPECIALIST [facility] 420 [facility] 207 [place] [address] 03/01/2024 7:00 AM BRONZE CHASER Office Visit [facility] [address] [place] [phone] Estella Hassan, [facility] 3033 [place] [address] 03/23/2024 2:00 PM BRONZE CHASER Office [facility] [address] [place] [address] [place] [phone] Lizet Mann PA-C 717 [place] [address] 03/29/2024 3:30 PM BRONZE CHASER Office Visit [facility] 2945 [facility] 200 [place] [phone] Hakeem Chacko MBBS 2945 [place] [address] 05/03/2024 3:00 PM BRONZE CHASER Office Visit [facility] [address] [phone] Gaurav Valenzuela, [facility] [address] [place] [address] 106 [place] [address] 05/22/2024 10:30 AM CDT Office Visit [facility] [address] [place] [phone] Estella Hassan, [facility] [address] [place] [address] 05/22/2024 11:30 AM CDT Office Visit [address] [phone] [place] [address] [place] [address] documented as of this encounter Goals [...] for health insurance by looking in to [employer] and talking with a FRW. Completed 3. I will look for a new job and will access resources that the [employer] offers. . Sarted new job 4. Continue [...] Morbid obesity due to excess calories (H) LUZ (generalized anxiety disorder) Generalized anxiety disorder Major depressive disorder, recurrent episode, moderate (H) Major depressive disorder, recurrent episode, moderate Chronic pain of right knee documented in this encounter Additional Health Concerns [...] documented as of this encounter Care Teams Monologist Relationship Specialty [place] [address] [place] [address] PCP - General Family Practice 07/11/14 [place] [address] [place] [address] Assigned PCP 12/16/11 Christy Campuzano PA-C [address] [place] [address] 119212 Referring Physician Family Medicine 04/22/20 Hans Cannon MD [address] [place] [address] Resident Pulmonary Disease 04/22/20 [place] [address] [place] [address] 167592 Internal Medicine 05/08/20 12/13/23 Estella Hassan, [facility] [address] [place] [address] Pharmacist Pharmacist 05/26/20 Elaina Moreno MD [address] [place] [address] 038815 Cardiovascular & Thoracic Surgery 08/06/20 John Webb MD [address] [place] [address] Cardiovascular Disease 08/25/21 John Webb MD [address] [place] [id number] Cardiovascular Disease 08/25/21 Estella Hassan, [facility] [address] [place] [address] Assigned MTM Pharmacist 12/09/21 Lindsay Carey OD [address] [facility] [place] [address] Ophthalmology 01/29/22 Richard Kam MD [address] [place] [address] [id number] Assigned Musculoskeletal Provider 08/14/22 [place] [address] [address] 949277 Assigned Neuroscience Provider 01/01/23 Rosemarie Mcdowell RN Water Plant Operator Diabetes Education 03/17/23 Ravi Brownlee MD [address] [place] [address] Assigned Heart and Vascular Provider 09/04/23 01/03/24 documented as of this encounter
--- OUTSIDE RECORDS SUMMARY | 2024-01-31 20:07 | XMS_ITS | Encounter Summary ---
Author Organization [facility] Address [address] [place] [address] Care Team Providers Care Paper Goods Machine Set Up Operator Name Role Phone Va Glez MD Primary Care Provider Va Glez MD Unavailable Christy Campuzano PA-C Unavailable Hans Cannon MD Unavailable Burt Jovel MD Unavailable Estella Hassan [facility] Unavailable Josh Cordero MD, Madhuri Unavailable [phone] John Webb MD Unavailable John Webb MD Unavailable [phone] Estella Hassan [facility] Unavailable Lindsay Carey OD Unavailable Richard Kam MD Unavailable Gaby Vila DO Unavailable Rosemarie Mcdowell RN Unavailable Ravi Brownlee MD Unavailable Reason for Visit * Reason Comments Medication Refill Encounter Details Date Type Department Care Team (Late st Contact Info) Description 11/06/[address] [phone] [place] [address] [place], [place] [phone] Medication Refill Social History Tobacco Use Types [...] week 10/20/2022 How often do you attend [facility] or scientologist services? More than 4 times per year 10/20/2022 Do you belong to any clubs o r organizations such as samaritan groups, unions, fraScaleform or athletic groups, or school groups? Patient [...] Answer Date Recorded PHQ-2 Score 1 10/13/2023 [facility] - Occupational Stress [...] on file Legal 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 RADAR TECHNICIAN Gender Identity Not on file Sexual Orientation Not on file Occupation Industry Job Start Date Job End Date Not on file Not on file Not on file Not on file documented as of this encounter Plan of Treatment Upcoming Encounters Date Type Department Care Team (Late st Contact Info) Description 02/01/2024 3:00 PM RADAR TECHNICIAN Office Visit [address] [place] [phone] Manuel Ahn, OD 6341 [facility] [place] [address] 02/02/2024 1:30 PM RADAR TECHNICIAN Therapy Visit [facility] Specialty [place] [address] [facility] [address] [place] [phone] Alicja Roldan, OT 909 [place] [address] 02/05/2024 8:00 PM RADAR TECHNICIAN Therapy Visit [facility] [place] 6363 [facility] 103 [place] [phone] 02/13/2024 4:30 PM RADAR TECHNICIAN [facility]cology [facility] 909 [place] [phone] Marian Agustin, ASSOCIATE [facility] 420 [facility] 207 [place] [address] 03/01/2024 7:00 AM RADAR TECHNICIAN Office Visit [facility] [address] [place] [phone] Estella Hassan, [facility] 3033 [place] [address] 03/23/2024 2:00 PM RADAR TECHNICIAN Office Visit [facility] [address] [place] [address] [place] [phone] Lizet Mann PA-C 717 [place] [address] 03/29/2024 3:30 PM RADAR TECHNICIAN Office Visit [facility] 2945 [facility] [address] [place] [phone] Hakeem Chacko MBBS 2945 [place] [address] 05/03/2024 3:00 PM RADAR TECHNICIAN Office Visit [address] [phone] Gaurav Valenzuela, NESSA [facility] [address] [place], [place] [address]E [facility] 106 [place] [address] 05/22/2024 10:30 AM CDT Office Visit [facility] [address] [place] [phone] Estella Hassan, [facility] 3033 [place] [address] 05/22/2024 11:30 AM CDT Office Visit [address] [phone] [place] [address] [place], [place] [phone] documented as of this encounter Goals Goal [...] for health insurance by looking in to [place] and talking with a FRW. Completed 3. I will look for a new job and will access resources that the [employer] offers. . Sarted new job 4. Continue [...] documented as of this encounter Care Teams Paper Goods Machine Set Up Operator Relationship Specialty [place] [address] [place] [address] PCP - General Family Practice 07/11/14 [place] [address] [place] [address] Assigned PCP 12/16/11 Christy Campuzano PA-C [address] [place] [address] 974122 Referring Physician Family Medicine 04/22/20 Hans Cannon MD [address] [place] [address] Resident Pulmonary Disease 04/22/20 Burt Jovel MD 4151 [place], [place] 959892 Internal Medicine 05/08/20 12/13/23 Estella Hassan, [facility] [address] [place] [address] 131236 Pharmacist Pharmacist 05/26/20 Elaina Moreno MD [address] [place] [address] [phone] Cardiovascular & Thoracic Surgery 08/06/20 John Webb MD 6405 [place] 732405 Cardiovascular Disease 08/25/21 John Webb MD 6405 [place] 773625 Cardiovascular Disease 08/25/21 Estella Hassan, [facility] [address] [place] [address] Assigned MTM Pharmacist 12/09/21 Lindsay Carey OD [address] [place] [address] [place] [address] Ophthalmology 01/29/22 Richard Kam MD [address] [place] [address] Assigned Musculoskeletal Provider 08/14/22 [place] [address] BC PENA, [address] [address] Assigned Neuroscience Provider 01/01/23 Rosemarie Mcdowell RN Tobacco Prizer Diabetes Education 03/17/23 Ravi Brownlee MD [address] [place] [address] 276 [place], [place] 683195 Assigned Heart and Vascular Provider 09/04/23 01/03/24 documented as of this encounter
--- OUTSIDE RECORDS SUMMARY | 2024-01-31 20:07 | XMS_ITS | Encounter Summary ---
Author Organization [facility] Address [address] [place] [address] Care Team Providers Care Decorator Inspector Name Role Phone Va Glez MD Primary Care Provider Va Glez MD Unavailable Christy Campuzano PA-C Unavailable Hans Cannon MD Unavailable [phone] Burt Jovel MD Unavailable Estella Hassan [facility] Unavailable Josh Cordero MD, Madhuri Unavailable [phone] John Webb MD Unavailable John Webb MD Unavailable Estella Hassan [facility] Unavailable [phone] Lindsay Carey OD Unavailable Richard Kam MD Unavailable Gaby Vila DO Unavailable Rosemarie Mcdowell RN Unavailable Ravi Brownlee MD Unavailable Reason for Visit * Reason Onset Date Comments Medication Problem 11/08/2023 Encounter Details Date Type Department Care Team (Late st Contact Info) Description 11/08/[address] [place] [address] [place] [address] [place] [address] Medication Problem Social History Tobacco Use Types Packs/Day Years [...] week 10/20/2022 How often do you attend [facility] or faith services? More than 4 times per year 10/20/2022 Do you belong to any clubs o r organizations such as evangelical groups, unions, fraKnee Creations or athletic groups, or school groups? Patient [...] Answer Date Recorded PHQ-2 Score 1 10/13/2023 [facility] of Occupat ional Health - Occupational Stress [...] on file Legal 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 SHOE PARTS CASER Gender Identity Not on file Sexual Orientation Not on file Occupation Industry Job Start Date Job End Date Not on file Not on file Not on file Not on file documented as of this encounter Miscellaneous Notes * Telephone Encounter - Kerry Bernal RN - 11/09/2023 11:33 AM CDT RN received call from patient He was able to obtain the escitalopram prescription Scheduled hospital follow up per patient request with Dr. Glez 11/11/2023 Jyothi Lozada Nurse [facility] * Telephone Encounter - Kerry Bernal RN - 11/09/2023 10:40 AM CDT Message #2 left to return call Jyothi Lozada Nurse [facility] * Telephone Encounter - Kerry Bernal RN - 11/08/2023 1:35 PM CDT RN left message for patient to return calls if further questions / concerns This RN has had several calls from patient today regarding his escitalopram RN has attempted to call patient back twice, left detailed message Rx was already resent by RN to pharmacy today Jyothi Lozada Nurse [facility] * Telephone Encounter - Yashira Cruz MA - 11/08/2023 12:57 PM CDT PT needs a phone call back regarding his medication and needing a refill ISABEL. He had been moving things around in his home and misplaced medication. Please call pt he is out of his meds documented in this encounter Plan of Treatment Upcoming Encounters Date Type Department Care Team (Late st Contact Info) Description 02/01/2024 3:00 PM SHOE PARTS CASER Office Visit [address] [place] [address] Manuel Ahn, 9[address] [facility] [place] [address] 02/02/2024 1:30 PM SHOE PARTS CASER Therapy Visit [facility] [address] [facility] [address] [place] [address] Alicja Roldan, OT 909 [place] [address] 02/05/2024 8:00 PM SHOE PARTS CASER Therapy Visit [facility] [place] 6363 [facility] 103 [place] [phone] 02/13/2024 4:30 PM SHOE PARTS CASER Oncology [facility] 909 [place] [phone] Marian Agustin, ARTIFICIAL FLOWERS DYER [facility] 420 [facility] 207 [place] [address] 03/01/2024 7:00 AM SHOE PARTS CASER Office Visit [facility] [address] [place] [phone] Estella Hassan, [facility] 3033 [place] [address] 03/23/2024 2:00 PM SHOE PARTS CASER Office Visit [facility] [address] [address], [place] [phone] Lizet Mann PA-C 717 [place] [address] 03/29/2024 3:30 PM SHOE PARTS CASER Office Visit [facility] 2945 [facility] [address] [place] [phone] Hakeem Chacko MBBS 2945 [place] [address] 05/03/2024 3:00 PM SHOE PARTS CASER Office Visit [facility] [address] [place] [phone] Gaurav Valenzuela, ARTIFICIAL FLOWERS DYER EBAY RESELLER [address] [place] 106 [place] [address] 05/22/2024 10:30 AM CDT Office Visit [facility] [address] [place] [phone] Estella Hassan, [facility] 3033 [place] [address] 05/22/2024 11:30 AM CDT Office Visit [address] [address] [place] [address] [place], [place] [phone] documented as of this encounter Goals Goal [...] for health insurance by looking in to [place] and talking with a FRW. Completed 3. I will look for a new job and will access resources that the [employer] offers. . Sarted new job 4. Continue [...] to Optimize Self-Care Behaviors Rosemarie eRndon RN Reducing Risks - know how to [...] documented as of this encounter Care Teams Decorator Inspector Relationship Specialty [place] [address] [place] [address] PCP - General Family Practice 07/11/14 [place] [address] [place] [address] Assigned PCP 12/16/11 Christy Campuzano PA-C [address] [place] [address] [phone] Referring Physician Family Medicine 04/22/20 Hans Cannon MD [address] [place] [address] 191602 Resident Pulmonary Disease 04/22/20 Burt Jovel MD [address] [place] [address] 223372 Internal Medicine 05/08/20 12/13/23 Estella Hassan, [facility] 3033 [place] [address] Pharmacist Pharmacist 05/26/20 Elaina Moreno MD 909 [place], [place] 190335 Cardiovascular & Thoracic Surgery 08/06/20 John Webb MD 6405 [place] 783875 Cardiovascular Disease 08/25/21 John Webb MD 6[address] [place] 535195 Cardiovascular Disease 08/25/21 Estella Hassan, [facility] [address] [place], [place] 688696 Assigned MTM Pharmacist 12/09/21 Lindsay Carey OD [address] [facility] [address] Ophthalmology 01/29/22 Richard Kam MD [address] [place] [address] 862155 Assigned Musculoskeletal Provider 08/14/22 [place] [address] [place] PENA, [address] [address] Assigned Neuroscience Provider 01/01/23 Rosemarie Mcdowell, RN Arborist Climber Diabetes Education 03/17/23 Ravi Brownlee MD [address] [place] [address] 905325 Assigned Heart and Vascular Provider 09/04/23 01/03/24 documented as of this encounter
--- OUTSIDE RECORDS SUMMARY | 2024-01-31 20:07 | XMS_ITS | Encounter Summary ---
Author Organization [facility] Address [address] [place] [address] Care Team Providers Care Cork Mixer Name Role Phone Va Glez MD Primary Care Provider [phone] Va Glez MD Unavailable Christy Campuzano PA-C Unavailable [phone] Hans Cannon MD Unavailable [phone] Burt Jovel MD Unavailable [phone] Estella Hassan [facility] Unavailable [phone] Josh Cordero MD, Madhuri Unavailable [phone] John Webb MD Unavailable John Webb MD Unavailable Estella Hassan [facility] Unavailable [phone] Lindsay Carey OD Unavailable Richard Kam MD Unavailable Gaby Vila DO Unavailable [phone] Rosemarie Mcdowell RN Unavailable Ravi Brownlee MD Unavailable Reason for Visit * Reason Onset Date Comments Refill Request 11/08/2023 Encounter Details Date Type Department Care Team (Late st Contact Info) Description 11/08/[address] [phone] Kerry Bernal RN Refill Request Social History Tobacco Use Types Packs/Day [...] How often do you attend chur or holiness services? More than 4 times per year 10/20/2022 Do you belong to any clubs o r organizations such as denominational groups, unions, fraternal or athletic groups, or [...] Answer Date Recorded PHQ-2 Score 1 10/13/2023 [facility] of Occupat ional Health [...] on file Legal 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 PULP MIXER Gender Identity Not on file Sexual Orientation Not on file Occupation Industry Job Start Date Job End Date Not on file Not on file Not on file Not on file documented as of this encounter Miscellaneous Notes * Telephone Encounter - Kerry Bernal RN - 11/08/2023 11:51 AM CDT RN received call from patient Asking for a refill on escitalopram, lost the bottle he was given on 10/13/2023 Refill was denied by refill team as it appears there is a refill on file however patient lost the medication RN resent refill of escitalopram as rx pt was given on 10/13/2023 was denied RN advised patient to follow [facility] with [facility] to let them know he lost his medication and will need to ask for an override to get the medication covered Kerry Bernal Registered Nurse [facility] documented in this encounter Plan of Treatment Upcoming Encounters Date Type Department Care Team (Late st Contact Info) Description 02/01/2024 3:00 PM PULP MIXER Office Visit [facility] [address] [place] [phone] Manuel Ahn, 6341 [place] [address] 02/02/2024 1:30 PM PULP MIXER Therapy Visit [facility] [address] [facility] [address] [place] [phone] Alicja Roldan OT 909 [place], [place] 238935 02/05/2024 8:00 PM PULP MIXER Therapy Visit [facility] [place] [address] [place] [address] 103 [place] [phone] 02/13/2024 4:30 PM PULP MIXER Oncology Visit [facility] 909 [place] [phone] Marian Agustin, NESSA BULK PICKER [address] [facility] 207 [place], [place] 390535 03/01/2024 7:00 AM PULP MIXER Office Visit [facility] [address] [place] [phone] Estella Hassan, [facility] 3033 [place] [address] 03/23/2024 2:00 PM PULP MIXER Office Visit [facility] [address] [place] [address] [place] [address] Lizet Mann PA-C 717 [place] [address] 03/29/2024 3:30 PM PULP MIXER Office Visit [facility] 2945 [facility] 200 [place] [phone] Hakeem Chacko MBBS 2945 [place] [address] 05/03/2024 3:00 PM PULP MIXER Office Visit [facility] [address] [place] [phone] Gaurav Valenzuela, INSTRUMENTATION TECH [facility] [address] [place] [address] 510734 05/22/2024 10:30 AM CDT Office Visit [address] [phone] Estella Hassan, [facility] 3033 [place] [address] 05/22/2024 11:30 AM CDT Office Visit [address] [address] [place]lez [place] [address] [place] [address] [phone] documented as of this encounter Goals Goal [...] for health insurance by looking in to [employer] and talking with a FRW. Completed 3. I will look for a new job and will access resources that the [email or web address] offers. . Sarted new job 4. Continue [...] as of this encounter Visit Diagnoses Diagnosis Major depressive disorder, recurrent episode, moderate (H) [...] information and submit it to the [facility]. 3. I will update CCC Team at outreach. HbA1C Not In Goal 04/28/2023 Diabetes Self-Management Edu cation Needed to Optimize Self-Care Behaviors 04/28/2023 Assessment Noted Time PHQ-9 Depression Total Score: 4 10/13/19 24 3:39 PM CDT documented as of this encounter Care Teams Cork Mixer Relationship Specialty [place] [address] [place] [address] PCP - General Family Practice 07/11/14 [place] [address] [place] [address] Assigned PCP 12/16/11 Christy Campuzano PA-C [address] [place] [address] Referring Physician Family Medicine 04/22/20 Hans Cannon MD [address] [place] [address] Resident Pulmonary Disease 04/22/20 Burt Jovel MD [address] [place] [address] Internal Medicine 05/08/20 12/13/23 Estella Hassan, [facility] [place] [address] Pharmacist Pharmacist 05/26/20 Elaina Moreno MD [address] [place] [address] Cardiovascular & Thoracic Surgery 08/06/20 John Webb MD [address] [place] [address] Cardiovascular Disease 08/25/21 John Webb MD [address] [place] 748685 Cardiovascular Disease 08/25/21 Estella Hassan, [facility] [address] [place] [address] Assigned MTM Pharmacist 12/09/21 Lindsay Carey OD [address] [facility] [place] [address] Ophthalmology 01/29/22 Richard Kam MD [address] [place] [address] 590075 Assigned Musculoskeletal Provider 08/14/22 [place] [address] BC PENA, [address] 903137 Assigned Neuroscience Provider 01/01/23 Rosemarie Mcdowell RN Meat Hanger Diabetes Education 03/17/23 Ravi Brownlee MD [address] [place] [address] 276 [place], [place] 564785 Assigned Heart and Vascular Provider 09/04/23 01/03/24 documented as of this encounter
--- OUTSIDE RECORDS SUMMARY | 2024-01-31 20:07 | XMS_ITS | Encounter Summary ---
Author Organization [facility] Address [address] [place] [address] Care Team Providers Care Director Dance Name Role Phone Va Glez MD Primary Care Provider [phone] Va Glez MD Unavailable Christy CampuzanoC Unavailable Hans Cannon MD Unavailable [phone] Burt Jovel MD Unavailable Estella Hassan [facility] Unavailable [phone] Josh Cordero MD, Madhuri Unavailable [phone] John Webb MD Unavailable John Webb MD Unavailable Estella Hassan [facility] Unavailable Lindsay Carey OD Unavailable Richard Kam MD Unavailable Gaby Vila DO Unavailable Rosemarie Mcdowell RN Unavailable Ravi Brownlee MD Unavailable [phone] Mitra Kendall WOODYARD OPERATOR Unavailable [phone] Lizet MannC Unavailable [phone] Ravi Brownlee MD Unavailable [phone] Nav Hughes MD Unavailable [phone] Anabelle Manuelgina Syed OD Unavailable KyeArabella PAM Unavailable [phone] Allen Charleslla [facility] Unavailable Unavailable Encounter Details Date Type Department Care Team (Late st Contact Info) Description 10/28/2023 [facility] [address] [place] [address] [facility] Social History Tobacco Use Types Packs/Day Years [...] any clubs o r organizations such as mormonism groups, unions, fraternal or athletic groups, or [...] Answer Date Recorded PHQ-2 Score 1 10/13/2023 [employer] [place] [facility] - Occupational Stress [...] on file Legal 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 COAL YARD SUPERVISOR Gender Identity Not on file Sexual Orientation Not on file Occupation Industry Job Start Date Job End Date Not on file Not on file Not on file Not on file documented as of this encounter Plan of Treatment Upcoming Encounters Date Type Department Care Team (Late st Contact Info) Description 02/01/2024 3:00 PM COAL YARD SUPERVISOR Office Visit [facility] Zeeshan [address] [facility] [place] [address] Manuel Ahn, [address] [place] [address] 02/02/2024 1:30 PM COAL YARD SUPERVISOR Therapy Visit [facility] [place] [address] [place] [phone] Alicja Roldan, OT [address] [place] [address] 02/05/2024 8:00 PM COAL YARD SUPERVISOR Therapy Visit [facility] [place] [address] [facility] [address] [place] [phone] 02/13/2024 4:30 PM COAL YARD SUPERVISOR Oncology Visit [facility] [address] [place] [phone] Marian Agustin APRN [facility] [address] [facility] [address] [place] [address] 03/01/2024 7:00 AM COAL YARD SUPERVISOR Office Visit [facility] [address] [place] [phone] Estella Hassan, [facility] [address] [place] [address] 03/23/2024 2:00 PM COAL YARD SUPERVISOR Office Visit [facility] [address] [place] [address] [place] [phone] Lizet Mann PA-C [address] [place] [address] 03/29/2024 3:30 PM COAL YARD SUPERVISOR Office Visit [facility] [address] [facility] [address] [place] [address] Hakeem Chacko MBBS [address] [place] [address] 05/03/2024 3:00 PM COAL YARD SUPERVISOR Office Visit [facility] [address] [address] Gaurav Valenzuela, [employer] A[employer] [address] [address] 05/22/2024 10:30 AM CDT Office Visit [address] [phone] Estella Hassan, [facility] [address] [place] [address] 05/22/2024 11:30 AM CDT Office Visit [address] [phone] [place] [id number] [place] [address] [phone] documented as of this encounter Goals Goal [...] for health insurance by looking in to [employer] and talking with a FRW. Completed 3. I will look for a new job and will access resources that the [employer] offers. . Sarted new job 4. Continue [...] accurate information and submit it to the [facility]. 3. I will update CCC Team at outreach. HbA1C Not In Goal 04/28/2023 Diabetes Self-Management Edu cation Needed to Optimize Self-Care Behaviors 04/28/2023 Infection Onset Date Last Indicated Resolved Time Rule Out COVID-19 11/06/2023 11/06/2023 11/06/2023 11:05 PM CDT Rule Out COVID-19 11/20/2023 11/20/2023 11/20/2023 6:43 PM CDT Rule Out COVID-19 12/27/2023 12/27/2023 12/29/2023 1:37 PM CDT Assessment Noted Time PHQ-9 Depression Total Score: 4 10/13/19 24 3:39 PM CDT documented as of this encounter Care Teams Director Dance Relationship Specialty [place] [address] [place] [address] PCP - General Family Practice 07/11/14 [place] [address] [place] [address] Assigned PCP 12/16/11 Christy Campuzano PA-C [address] [place] [address] [id number] Referring Physician Family Medicine 04/22/20 Hans Cannon MD [address] [place] [address] Resident Pulmonary Disease 04/22/20 Burt Jovel MD [address] [place] [address] Internal Medicine 05/08/20 12/13/23 Estella Hassan, [facility] [address] [place] [address] Pharmacist Pharmacist 05/26/20 Elaina Moreno MD [address] [place] [address] Cardiovascular & Thoracic Surgery 08/06/20 John Webb MD [address] [id number] Cardiovascular Disease 08/25/21 John Webb MD [address] [id number] Cardiovascular Disease 08/25/21 Estella Hassan, [facility] [place] [address] Assigned MTM Pharmacist 12/09/21 Lindsay Carey OD [address] [place] [address] Ophthalmology 01/29/22 Richard Kam MD [address] [place] [address] [phone] Assigned Musculoskeletal Provider 08/14/22 [place] [address] [place] , [address] [phone] Assigned Neuroscience Provider 01/01/23 Rosemarie Mcdowell RN Bulk Filler Diabetes Education 03/17/23 Ravi Brownlee MD [address] [place] [address] [id number] Assigned Heart and Vascular Provider 09/04/23 01/03/24 Mitra Kendall, [facility] Lead Tank House Supervisor Primary Care - CC 12/12/23 Lizet Mann PA-C [address] [place] [address] [phone] Assigned Cancer Care Provider 01/04/24 Ravi Brownlee MD [address] [place] [address] 764455 Assigned Pulmonology Provider 01/04/24 Nav Hughes MD [address] [id number] Assigned Heart and Vascular Provider 01/04/24 Manuel Ahn, ARA [address] [facility] [place] [address] Bright Cutter 01/05/24 Arabella Fishman MA Financial Resource Worker 01/06/24 Thalia Charles [facility] Pharmacist Pharmacy 01/26/24 documented as of this encounter
--- OUTSIDE RECORDS SUMMARY | 2024-01-31 20:07 | XMS_ITS | Encounter Summary ---
Author Organization [facility] Address [address] [place] [id number] Care Team Providers Care Disc Pad Grinder Name Role Phone Va Glez MD Primary Care Provider [phone] Va Glez MD Unavailable Christy Campuzano PA-C Unavailable Hans Cannon MD Unavailable [phone] Burt Jovel MD Unavailable [phone] Estella Hassan [facility] Unavailable [phone] Josh Cordero MD, Madhuri Unavailable [phone] John Webb MD Unavailable [phone] John Webb MD Unavailable Estella Hassan [facility] Unavailable Lindsay Carey OD Unavailable Richard Kam MD Unavailable Gaby Vila DO Unavailable Rosemarie Mcdowell RN Unavailable [phone] Ravi Brownlee MD Unavailable [phone] Encounter Details Date Type Department Care Team (Late st Contact Info) Description 11/06/2023 8:44 PM CDT - 11/07/2023 12:04 AM CDT Emergency [facility] Emergency Dept [address] [place] [address] Vamshi Tobin DO [facility] [address] [place] [address] Decreased appetite (Primary Dx); Shortness of breath; Nausea Discharge Disposition: Left Against Medical Advice Social History Tobacco Use Types Packs/Day Years [...] often do you attend [facility] or voodoo services? 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 Gender Identity Not on file Sexual Orientation Not on file Occupation Industry Job Start Date Job End Date Not on file Not on file Not on file Not on file documented as of this encounter Last Filed Vital Signs Vital Sign Reading Time Taken Comments Blood Pressure 115/76 11/06/2023 10:39 PM CDT Pulse 77 11/06/2023 10:39 PM CDT Temperature 36.3 C (97.3 F) 11/06/2023 7:54 PM CDT Respiratory Rate 20 11/06/2023 10:3 9 PM CDT Oxygen Saturation 93% 11/06/2023 10: 39 PM CDT Inhaled Oxygen Concentration - - Weight 135.5 kg (298 lb 11.6 oz) 11/06/2023 7:54 PM CDT Height - - Body Mass Index 44.76 10/13/2023 3:20 PM CDT documented in this encounter Discharge Instructions * Discharge Instructions* Vamshi Tobin DO - 11/06/2023 11:57 PM CDT You have chosen to sign out against medical advice before completion of your evaluation today. Should you change your mind, please return to the ER immediately. You are always welcome to return for completion of evaluation. Please follow-up with your primary care doctor regarding potential testing for sleep apnea. Please follow-up with your primary care provider and/or specialist regarding your visit to the ER today. Please return to the emergency department should you experience any of the symptoms we specificallydiscussed, including but not limited to recurrence or worsening of your symptoms, or development ofany new and concerning symptoms such as fever, chest pain, shortness of breath, abdominal pain, or vomiting. * Attachments The following attachments cannot be sent through Care Everywhere. * SOB (Shortness of Breath) (Tanzanian) * Sleep Apnea (Tanzanian) documented in this encounter Medications at Time [...] DAYS. USE TO READ BLOOD SUGARS PER RAISER HELPER'S INSTRUCTIONS. 2 each 5 4 diclofenac (VOLTAREN) [...] every 7 days 9 mL 3 4 albuterol (PROAIR HFA/PROVENTIL HFA/VENTOLIN HFA) 108 [...] (10 mg) by mouth daily 90 tablet 4 11/08/19 24 fluticasone-salme terol (ADVAIR) 500-50 MCG/ACT inhalerIndication [...] as of this encounter ED Notes * Caty Mandel RN - 11/06/2023 10:39 PM CDT Pt placed on 2LNC After oxygen saturation was noted to be in the high 70's and mid 80's with a goodwave form. * Caty Mandel RN - 11/06/2023 10:36 PM CDT GastrointestinalGastrointestinal WDL: all (pt comes in with nausea, decreased appitite, fatique andpt states that food just does not tast good today.)GI Signs/Symptoms: nauseaAbdominal Appearance: obese; roundedBowel Sounds: All QuadrantsAll Quadrants Bowel Sounds: hypoactiveAdditional Documentation: Bowel Sounds (Row) * Vamshi Tobin, DO - 11/06/2023 9:43 PM CDT Emergency Department Note History of Present Illness Chief Complaint No chief complaint on file. HPI Peter Devi is a 63 year old male presents to the emergency department with decreased appetite/nausea. Patient reports that in the past 2 to 3 days, food just has not tasted as appetizing for him. He is able to keep down the food, but he does not eat as much. Patient reports that things such as crackers with sound a little bit better. Patient denies any fevers, rhinorrhea, or congestion, butdoes endorse a little bit of increase in cough in the past few days. Patient also reports that the humidity of the current weather has exacerbated his asthma and he has been having a bit more shortness of breath in the past few days due to this. Patient otherwise denies any chest pain. Patient denies any abdominal pain. He does endorse some increased urinary frequency recently. He has history of urinary frequency and a past before, but it has spontaneously resolved. Patient feels that his decrease in appetite may be potentially secondary to being overheated. Independent Historian None Review of External Notes 10/25/2023 office visit note Past Medical History Medical History and Problem List Past Medical History: Diagnosis Date Arthritis of knee 11/03/2015 CARDIOVASCULAR SCREENING; LDL GOAL LESS THAN 160 12/03/2011 Depressive disorder Diabetes (H) LUZ (generalized anxiety disorder) 01/17/2017 Glucose intolerance (impaired glucose tolerance) 04/03/2016 Major depressive disorder, recurrent episode, moderate (H) 03/26/2016 Mediastinal cyst Moderate persistent asthma 12/19/2013 Moderate persistent asthma without complication 01/27/2015 Morbid obesity due to excess calories (H) 03/26/2016 Obesity 03/15/2014 Medications ondansetron (ZOFRAN ODT) 4 MG ODT tab acetaminophen (TYLENOL) 500 MG tablet albuterol (PROAIR HFA/PROVENTIL HFA/VENTOLIN HFA) 108 (90 Base) MCG/ACT inhaler atorvastatin (LIPITOR) 40 MG tablet blood glucose (NO BRAND SPECIFIED) lancets standard blood glucose (NO BRAND SPECIFIED) test strip blood glucose monitoring (NO BRAND SPECIFIED) meter device kit Continuous Glucose Sensor (FREESTYLE ANDRIA 2 SENSOR) MISC diclofenac (VOLTAREN) 1 % topical gel escitalopram (LEXAPRO) 10 MG tablet fluticasone-salmeterol (ADVAIR) 500-50 MCG/ACT inhaler glipiZIDE (GLUCOTROL XL) 10 MG 24 hr tablet ipratropium - albuterol 0.5 mg/2.5 mg/3 mL (DUONEB) 0.5-2.5 (3) MG/3ML neb solution metFORMIN (GLUCOPHAGE XR) 500 MG 24 hr tablet Semaglutide, 2 MG/DOSE, (OZEMPIC) 8 MG/3ML pen umeclidinium (INCRUSE ELLIPTA) 62.5 MCG/ACT inhaler Surgical History Past Surgical History: Procedure Laterality Date DAVINCI EXCISE NODES THORACIC Right 07/23/2020 Procedure: ROBOT-ASSISTED mediastinal cyst excision; Surgeon: Elaina Moreno MD; Location: [facility] OR TOE SURGERY age 16 Physical Exam Patient Vitals for the past 24 hrs: BP Temp Temp src Pulse Resp SpO2 Weight 11/06/232238 115/76 -- -- 77 20 93 % -- 11/06/232237 -- -- -- -- -- (!) 88 % -- 11/06/232236 -- -- -- -- -- (!) 83 % -- 11/06/232235 -- -- -- -- -- (!) 81 % -- 11/06/232234 -- -- -- -- -- (!) 81 % -- 11/06/232233 -- -- -- -- -- (!) 79 % -- 11/06/232232 -- -- -- -- -- (!) 82 % -- 11/06/232231 -- -- -- -- -- (!) 86 % -- 11/06/232230 -- -- -- -- -- (!) 86 % -- 11/06/232229 -- -- -- -- -- (!) 86 % -- 11/06/232228 -- -- -- -- -- (!) 89 % -- 11/06/232227 -- -- -- -- -- (!) 85 % -- 11/06/232226 -- -- -- -- -- (!) 86 % -- 11/06/232225 -- -- -- -- -- (!) 84 % -- 11/06/232223 98/80 -- -- 72 -- 91 % -- 11/06/231953 134/78 97.3 ??F (36.3 ??C) Temporal 107 22 93 % 135.5 kg (298 lb 11.6 oz) Physical Exam Constitutional: General: Not in acute distress. Appearance: Normal appearance. HENT: Head: Normocephalic and atraumatic. Eyes: Extraocular Movements: Extraocular movements intact. Conjunctiva/sclera: Conjunctivae normal. Cardiovascular: Rate and Rhythm: Normal rate and regular rhythm. Pulmonary: Effort: Pulmonary effort is normal. No respiratory distress. Breath sounds: Normal breath sounds. No wheezing. No crackles. Abdominal: General: Abdomen is flat. There is no distension. Palpations: Abdomen is soft. Tenderness: There is no abdominal tenderness. Musculoskeletal: Cervical back: Normal range of motion. No rigidity. Right lower leg: No edema. Left lower leg: No edema. Skin: General: Skin is warm and dry. Neurological: General: No focal deficit present. Mental Status: Alert and oriented to person, place, and time. Psychiatric: Mood and Affect: Mood normal. Behavior: Behavior normal. Diagnostics Lab Results Labs Ordered and Resulted from Time of ED Arrival to Time of ED Departure BASIC METABOLIC PANEL - Abnormal Result Value Sodium 140 Potassium 3.9 Chloride 102 Carbon Dioxide (CO2) 25 Anion Gap 13 Urea Nitrogen 21.0 Creatinine 0.77 GFR Estimate >90 Calcium 9.2 Glucose 210 (*) TROPONIN T, HIGH SENSITIVITY - Abnormal Troponin T, High Sensitivity 25 (*) ROUTINE UA WITH MICROSCOPIC REFLEX TO CULTURE - Abnormal Color Urine Yellow Appearance Urine Clear Glucose Urine 100 (*) Bilirubin Urine Negative Ketones Urine Negative Specific [place] Urine 1.034 Blood Urine Negative pH Urine 5.5 Protein Albumin Urine 10 (*) Urobilinogen Urine Normal Nitrite Urine Negative Leukocyte Esterase Urine Negative Mucus Urine Present (*) RBC Urine <1 WBC Urine <1 Squamous Epithelials Urine <1 TROPONIN T, HIGH SENSITIVITY - Abnormal Troponin T, High Sensitivity 24 (*) HEPATIC FUNCTION PANEL - Normal Protein Total 7.0 Albumin 4.1 Bilirubin Total 0.8 Alkaline Phosphatase 93 AST 22 ALT 33 Bilirubin Direct <0.20 INFLUENZA A/B, RSV, & SARS-COV2 PCR - Normal Influenza A PCR Negative Influenza B PCR Negative RSV PCR Negative SARS CoV2 PCR Negative NT PROBNP INPATIENT - Normal N terminal Pro BNP Inpatient <36 CBC WITH PLATELETS AND DIFFERENTIAL WBC Count 7.5 RBC Count 5.11 Hemoglobin 14.1 Hematocrit 42.1 MCV 82 MCH 27.6 MCHC 33.5 RDW 13.7 Platelet Count 219 % Neutrophils 75 % Lymphocytes 15 % Monocytes 7 % Eosinophils 2 % Basophils 0 % Immature Granulocytes 0 NRBCs per 100 WBC 0 Absolute Neutrophils 5.6 Absolute Lymphocytes 1.1 Absolute Monocytes 0.6 Absolute Eosinophils 0.1 Absolute Basophils 0.0 Absolute Immature Granulocytes 0.0 Absolute NRBCs 0.0 Imaging XR Chest 2 Views (Results Pending) EKG ECG results from 11/06/23 EKG 12-lead, tracing only Value Systolic Blood Pressure Diastolic Blood Pressure Ventricular Rate 99 Atrial Rate 99 OK Interval 146 QRS Duration 90 QT 346 QTc 444 P [place] 75 R AXIS -78 T [place] 61 Interpretation ECG Sinus rhythm Left axis deviation 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) Abnormal ECG When compared with ECG of 05-Jun-2023 17:21, No significant change was found *Note: Due to a large number of results and/or encounters for the requested time period, some results have not been displayed. A complete set of results can be found in Results Review. See ED course for independent interpretation of EKG. Independent Interpretation None ED Course Medications Administered Medications ondansetron (ZOFRAN) injection 4 mg (4 mg Intravenous $Given 11/06/231) Procedures Procedures Discussion of Management See ED course ED Course ED Course as of 11/07/23 0048 Sun Nov 06, 2023 2339 Troponin T, High Sensitivity(!): 24 2 set flat 2340 EKG 12-lead, tracing only Normal sinus rhythm. Rate of 99. Normal OK and QRS. Normal QTc. No acute ST elevation or depressionas compared with 06/01/2023 EKG. 2357 Patient would like to sign out against medical advice prior to completion of work up. I was notified by RN that during sleep, patient did desaturate into the 70s percent range on oxygenation andrequired 2 L nasal cannula placement. Suspect MONAE and obesity hypoventilation syndrome. Patient still has chest x-ray pending. With walking pulse ox, patient did desaturate down to at lowest 88% while sitting to recover, but patient declined further workup at this time. Patient reports he has pulseox at home and he has nebulizer at home. Patient reports that he needs to return home as he works tomorrow morning and he has dogs to let out tonight. Patient understands the risk of leaving prior to completion of workup including, but not limited to, worsening shortness of breath and . Patient understands and I recommend that he follow-up with his primary care provider for referral for testing for MONAE. I also advised for patient to prop up his pillow at nighttime while sleeping given likely MONAE. Patient understands that he can return to the ER anytime for completion of evaluation shouldhe change his mind. I have written patient a Zofran prescription as needed for nausea. Additional Documentation None Medical Decision Making / Diagnosis [facility] Diagnoses: None MIPS None MDM Peter Devi is a 63 year old male as described above presents to the emergency department for decreased appetite, nausea, and shortness of breath due to asthma. Patient hemodynamically stable attime of evaluation. Afebrile. Patient reports that since arrival into the ER room, his shortness ofbreath has improved and attributes his shortness of breath due to the humidity of the outside air. Patient at this time does not endorse any shortness of breath. Patient's primary concern at this time is endorsing decreased appetite for the past few days in which she is unable to eat much. Differential diagnosis considered includes, but not limited to, acute viral syndrome, heat exhaustion, pneumonia, gastroenteritis, or dehydration. CBC and CMP ordered. High- sensitivity troponin was obtained by RN due to the patient's initial shortness of breath complaints on arrival which resulted positive at 25, so repeat troponin was ordered. At this time, low suspicion for ischemic cardiac disease. Chest x-ray ordered for evaluation for underlying pneumonia. At this time, patient does not appear to be in exacerbation of asthma. No wheezing. No crackles. Viral swab ordered. Discussed care plan with patient who voiced understanding and agreement with plan. Answered all questions. Additional workup and orders as listed in chart. Ultimately, work up shows mild hyperglycemia at 210, but no anion gap or findings suggestive of DKA. No leukocytosis to suggest systemic infection. Normal hemoglobin. Normal LFTs. Mild elevation to high sensitive troponin, but 2 set negative. Viral swab negative for influenza, RSV, or COVID. No BNPelevation to suggest CHF. Patient was found to have transient hypoxia in the 70s while asleep and placed on 2 L nasal cannula. Suspect potential undiagnosed MONAE versus obesity hypoventilation syndrome. However, prior to completion of workup including chest x-ray, patient decided that he does not wish to stay in the hospitalany longer as he has work tomorrow and needs to go home to let his dogs. Patient requesting signed out AMA. Discussed risk of leaving the hospital prior to completion of workup and receiving further treatment for which patient voiced understanding of risk. He will continue to monitor oxygenation athome and will sleep with pillows propped up and follow-up with his primary care provider regarding p otential MONAE testing. Patient understands that he may return to the ER at any time should he changehis mind for completion of workup. Patient was provided Zofran prescription as needed for nausea. Please refer to ED course above as part of continuation of MDM for details on the patient's treatment course and any potential changes or updates beyond my initial evaluation and MDM creation. Disposition The patient left AMA. Diagnosis ICD-10-CM 1. Decreased appetite R63.0 2. Shortness of breath R06.02 3. Nausea R11.0 Discharge Medications Discharge Medication List as of 11/07/2023 12:01 AM START taking these medications Details ondansetron (ZOFRAN ODT) 4 MG ODT tab Take 1 tablet (4 mg) by mouth every 8 hours as needed for nausea or vomiting., Disp-10 tablet, R-0, Local Print DO Crista LANE Ferris, DO 11/07/23 0051 * Kizzy Coppola RN - 11/06/2023 8:44 PM CDT Bed: ED24 Expected date: Expected time: Means of arrival: Comments: Triage MH 63 M * Whitney Knight RN - 11/06/2023 7:52 PM CDT C/o nausea x3 days. Denies vomiting, but feels nauseated when he eats anything. Pt appears short ofbreath in triage. Hx asthma. Alert and ambulatory. 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 [address] [place] [address] 05/22/2024 11:30 AM CDT Office Visit [facility] [id number] [place] [phone] [place] Glez [place] [id number] [place] [phone] documented as of this encounter Goals Goal Patient Goal Type Associated Problems Recent Progress Patient-Stated? Author Health Maintenance Care Plan HP GENERAL PROBLEM 100%( 023 10:17 AM CDT) No Mitra Kendall, BAND TIER Note: Update on 05/25/22 Barriers: Currently without [...] for health insurance by looking in to [employer] and talking with a FRW. Completed 3. I will look for a new job and will access resources that the [employer] offers. . Sarted new job 4. Continue [...] Associated Diagnosis Comments TROPONIN T, HIGH SENSITIVITY STAT 11/06/2023 11:07 PM CDT INFLUENZA A/B, RSV AND SARS-COV2 PCR STAT 11/06/2023 10:22 PM CDT ROUTINE UA WITH MICROSCOPIC REFLEX TO CULTURE STAT 11/06/2023 10:06 PM CDT EXTRA TUBE STAT 11/06/2023 8:53 PM CDT EXTRA RED TOP TUBE STAT 11/06/2023 8: 53 PM CDT EXTRA BLUE TOP TUBE STAT 11/06/2023 8 :53 PM CDT CBC WITH PLATELETS AND DIFFERENTIAL STAT 11/06/2023 8:53 PM CDT TROPONIN T, HIGH SENSITIVITY STAT 11/06/2023 8:53 PM CDT CBC WITH PLATELETS & DIFFERENTIAL STAT 11/06/2023 8:53 PM CDT NT PROBNP INPATIENT STAT 11/06/2023 8 :53 PM CDT HEPATIC FUNCTION PANEL Add-On 11/06/2023 8:53 PM CDT BASIC METABOLIC PANEL STAT 11/06/2023 8:53 PM CDT EKG 12-LEAD, TRACING ONLY STAT 11/06/2023 7:57 PM CDT documented in this encounter Results * (ABNORMAL) Troponin T, High Sensitivity (now) (11/06/2023 11:07 PM CDT) [facility] Troponin T, High Sensitivity 24(H) <=22 ng/L 11/06/2023 11:33 PM CDT LABORATORY Comment: Either a High Sensitivity Troponin [...] BLOOD SPECIMEN / Unknown Venipuncture / Unknown 11/06/2023 11:07 PM CDT 11/06/2023 11:12 PM CDT us Vamshi Tobin DO LAB - BLOOD ORDERABLES Final Res ult LABORATORY [facility] [address] [facility] (1st floor, no room number) [place] [address], [facility] * Symptomatic Influenza A/B, RSV, & SARS-CoV2 PCR (COVID-19) Nose (11/06/2023 10:22 PM CDT) [facility] Influenza A PCR Negative Negative 11/06/2023 11:05 [...] the Xpert Xpress CoV2/Flu/RSV Assay on the MeuugameXpert Instrument. This test should be ordered for [...] management. This test was validated by the [facility]. These laboratories are certified under the Clinical Laboratory Improvement Amendments of 1988 (CLIA-88) as qualified to perfom high complexity laboratory testing. us Vamshi Tobin DO LAB - MICRO GENERAL ORDERABLES F inal Result LABORATORY [facility] [address] [facility] (1st floor, no room number) [place] [address], [facility] * (ABNORMAL) UA with Microscopic reflex to Culture (11/06/2023 10:06 PM CDT) Color Urine Yellow Colorless, Straw, Light Yellow, Yellow 11/06/2023 10:22 PM CDT LABORATORY Appearance Urine Clear Clear 11/06/19 24 10:22 PM CDT LABORATORY Glucose Urine 100(A) Negative mg/dL 11/06/2023 10:22 PM CDT LABORATORY Bilirubin Urine Negative Negative 10:22 PM CDT [facility] LAB[facility]ATORY Ketones Urine Negative Negative mg/dL 11/06/2023 10:22 PM CDT [facility] LABORATORY Specific [place] Urine 1.034 1.003 - 1.035 11/06/2023 10:22 PM CDT [facility] Blood Urine Negative Negative 11/06/2023 10:22 PM CDT [facility] pH Urine 5.5 5.0 - 7.0 11/06/2023 10:22 PM CDT [facility] Protein Albumin Urine 10(A) Negative mg/dL [...] CDT Urine Culture not indicated us Vamshi Tobin DO LAB - URINE ORDERABLES Final Res ult LABORATORY [facility] [address] Lab (1st floor, no room number) [place] [address], [facility] * Nt probnp inpatient (BNP) (11/06/2023 8:53 PM CDT) N terminal Pro BNP Inpatient <36 0 - 900 pg/mL 11/06/2023 10:15 PM CDT [facility] LABORATORY Comment: Reference range [...] pg/mL (age 75 yrs and older) Blood STRUCTURE OF LEFT UPPER LIMB / Unknown Venipuncture / Unknown 11/06/2023 8:53 PM CDT 11/06/2023 8:58 PM CDT us [place] Yeh DO LAB - BLOOD ORDERABLES Final Res ult [facility] LABORATORY [facility] [address] Lab (1st floor, no room number) [place] [address], [facility] * Hepatic panel (11/06/2023 8:53 PM CDT) Pathologist [facility] Protein Total 7.0 6.4 - 8.3 g/dL 11/06/2023 10:05 PM CDT [facility] LABORATORY Albumin 4.1 3.5 - 5.2 g/dL 11/06/2023 10:05 PM CDT LABORATORY Bilirubin Total 0.8 <=1.2 mg/dL 11/06/2023 [...] BLOOD ORDERABLES Final Res ult [facility] LABORATORY [facility] [address] Lab (1st floor, no room number) [place] [address], [facility] * CBC with platelets and differential (11/06/2023 8:53 PM CDT) WBC Count 7.5 4.0 - 11.0 10e3/uL 11/06/2023 9:00 PM CDT [facility] LAB[facility]AT[facility] RBC Count 5.11 4.40 - 5.90 10e6/uL 11/06/2023 9:00 PM CDT [facility] LAB[facility] Hemoglobin 14.1 13.3 - 17.7 g/dL 11/06/2023 9:00 PM CDT [facility] LAB[facility] Hematocrit 42.1 40.0 - 53.0 % 11/06/2023 9:00 PM CDT [facility] LAB[facility]ATORY MCV 82 78 - 100 fL 11/06/2023 9:00 PM CDT [facility] LABORATORY MCH 27.6 26.5 - 33.0 pg 11/06/2023 9:00 PM CDT [facility] LABORATORY MCHC 33.5 31.5 - 36.5 g/dL 11/06/2023 9:00 PM CDT [facility] LAB[facility]AT[facility] RDW 13.7 10.0 - 15.0 % 11/06/2023 9:00 PM CDT [facility] LAB[facility] Platelet Count 219 150 - 450 10e3/uL 11/06/2023 9:00 PM CDT [facility] % Neutrophils 75 % 11/06/2023 9:00 PM CDT [facility] % Lymphocytes 15 % 11/06/2023 9:00 PM CDT [facility] % Monocytes 7 % 11/06/2023 9:00 PM CDT [facility] % Eosinophils 2 % 11/06/2023 9:00 PM CDT [facility] % Basophils 0 % 11/06/2023 9:00 PM CDT [facility] LAB[facility] % Immature Granulocytes 0 % 11/06/2023 9:00 PM CDT [facility] NRBCs per 100 WBC 0 <1 /100 024 9:00 PM CDT [facility] Absolute Neutrophils 5.6 1.6 - 8.3 10e3/uL 11/06/2023 9:00 PM CDT [facility] Absolute Lymphocytes 1.1 0.8 - 5.3 10e3/uL 11/06/2023 9:00 PM CDT [facility] Absolute Monocytes 0.6 0.0 - 1.3 10e3/uL 11/06/2023 9:00 PM CDT [facility] Absolute Eosinophils 0.1 0.0 - 0.7 10e3/uL 11/06/2023 9:00 PM CDT [facility] Absolute Basophils 0.0 0.0 - 0.2 10e3/uL 11/06/2023 9:00 PM CDT [facility] Absolute Immature Granulocytes 0.0 <=0.4 10e3/uL 11/06/2023 9:00 PM CDT [facility] Absolute NRBCs 0.0 10e3/uL 11/06/2023 9:00 PM CDT [facility] Blood STRUCTURE OF LEFT UPPER LIMB / Unknown Venipuncture / Unknown 11/06/2023 8:53 PM CDT 11/06/2023 8:58 PM CDT us Vamshi Yeh DO LAB - BLOOD ORDERABLES Final Res ult [facility] [address] Lab (1st floor, no room number) [address] [place] [address] * Extra Red Top Tube (11/06/2023 8:53 PM CDT) [facility] Signature Hold Specimen [facility] 11/06/2023 10:01 PM CDT [facility] Blood STRUCTURE OF LEFT UPPER LIMB / Unknown Venipuncture / Unknown 11/06/2023 8:53 PM CDT 11/06/2023 8:58 PM CDT us Vamshi Yeh DO LAB - BLOOD ORDERABLES Final Res ult [facility] [address] Lab (1st floor, no room number) [place] [phone] [place] [address] * Extra Blue Top Tube (11/06/2023 8:53 PM CDT) Hold Specimen [facility] 11/06/2023 10:01 PM CDT LABORATORY Blood STRUCTURE OF LEFT UPPER LIMB / Unknown Venipuncture / Unknown 11/06/2023 8:53 PM CDT 11/06/2023 8:58 PM CDT us Vamshi Yeh DO LAB - BLOOD ORDERABLES Final Res ult Performing Organization Address City/[facility]/ZIP Co de Phone Number [facility] Acute Care Lab [address] Lab (1st floor, no room number) [place] [phone] * (ABNORMAL) Troponin T, High Sensitivity (now) (11/06/2023 8:53 PM CDT) [facility] Troponin T, High Sensitivity 25(H) <=22 ng/L 11/06/2023 9:18 PM CDT LABORATORY Comment: Either a High Sensitivity Troponin [...] follow-up, or urgent outpatient provocative testing. Blood STRUCTURE OF LEFT UPPER LIMB / Unknown Venipuncture / Unknown 11/06/2023 8:53 PM CDT 11/06/2023 8:58 PM CDT us [place] Yeh DO LAB - BLOOD ORDERABLES Final Res ult [facility] Lab [address] Lab (1st floor, no room number) [place] [phone], [facility] * (ABNORMAL) Basic metabolic panel (BMP) (11/06/2023 8:53 PM CDT) Sodium 140 135 - 145 mmol/L 11/06/2023 9:18 PM CDT LABORATORY Potassium 3.9 3.4 - 5.3 mmol/L 11/06/2023 9:18 PM CDT LABORATORY Chloride 102 98 - 107 mmol/L 11/06/2023 9:18 PM CDT [facility] Carbon Dioxide (CO2) 25 22 - 29 mmol/L 11/06/2023 9:18 PM CDT LABORATORY Anion Gap 13 7 - 15 mmol/L 11/06/2023 9:18 PM CDT [facility] Urea Nitrogen 21.0 8.0 - 23.0 [...] - BLOOD ORDERABLES Final Res ult LABORATORY [facility] Lab [address] Lab (1st floor, no room number) [place] [address], [facility] * EKG 12-lead, tracing only (11/06/2023 7:57 PM CDT) Systolic Blood Pressure mmHg RADIOLOGY RESULTS Diastolic Blood Pressure mmHg RADIOLOGY RESULTS Ventricular Rate 99 BPM RAD IOLOGY RESULTS Atrial Rate 99 BPM RADIOLOG Y RESULTS OK Interval 146 ms RADIOLOG Y RESULTS QRS Duration 90 ms RADIOLO GY RESULTS QT 346 ms RADIOLOGY RESULTS QTc 444 ms RADIOLOGY RESULTS P [place] 75 degrees RADIOLOGY RESULTS R AXIS -78 degrees RADIOLOGY RESULTS T [place] 61 degrees RADIOLOGY RESULTS Interpretation ECG Sinus rhythm Left axis deviation 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) Abnormal ECG When compared with ECG of 05-Jun-2023 17:21, No significant change was found Confirmed by - EMERGENCY ROOM, PHYSICIAN ([id number]), editor in chief newspaper KATHIA MENA ([id number]) on 11/07/2023 7:07:31 AM RADIOLOGY RESULTS 11/06/2023 7:57 PM CDT 11/07/2023 7:07 AM CDT us Vamshi Tobin DO ECG ORDERABLES Edited Result - Final RADIOLOGY RESULTS documented in this encounter Visit Diagnoses Diagnosis Decreased appetite- Primary Anorexia Shortness of breath Nausea Nausea alone documented in this encounter Administered Medications Inactive Administered Medications - up to 3 most recent administrations Medication Order MAR Action Action Date Dose Rate Site ondansetron (ZOFRAN) injection 4 mg 4 mg, Intravenous, ONCE PRN, nausea, vomiting, Administer over 2-5 Minutes, Starting on 11/06/23 at 2149, For 1 dose $Given 11/06/2023 10:21 PM CDT 4 mg documented in this encounter Active and Recently Administered Medications Times are shown in CDT. PRN Medication Order 11/05/2023 11/06/2023 11/07/2023 ondansetron (ZOFRAN) injection 4 mg (COMPLETED) 4 mg, Intravenous, ONCE PRN, nausea, vomiting, Administer over 2-5 Minutes, Starting on 11/06/23 at 2149, For 1 dose 2221 ($Given - Provider: Caty Mandel RN) documented in this encounter Additional Health [...] documented as of this encounter Care Teams Disc Pad Grinder Relationship Specialty [place] [address] [place] [address] PCP - General Family Practice 07/11/14 [place] [address] [place] [address] Assigned PCP 12/16/11 Christy Campuzano PA-C [address] [place] [address] Referring Physician Family Medicine 04/22/20 Hans Cannon MD [address] [place] [address] Resident Pulmonary Disease 04/22/20 Burt Jovel MD [address] [place] [address] [id number] Internal Medicine 05/08/20 12/13/23 Estella Hassan, [facility] [address] [place] [address] Pharmacist Pharmacist 05/26/20 Elaina Moreno MD [address] [place] [address] [id number] Cardiovascular & Thoracic Surgery 08/06/20 John Webb MD [address] [id number] Cardiovascular Disease 08/25/21 John Webb MD [address] [id number] Cardiovascular Disease 08/25/21 [facility] [address] [place] [address] Assigned MTM Pharmacist 12/09/21 Lindsay Carey OD [address] [facility] [place] [address] Ophthalmology 01/29/22 Richard Kam MD [address] [place] [address] Assigned Musculoskeletal Provider 08/14/22 [place] [address] [place], [address] [place] [address] [id number] Assigned Neuroscience Provider 01/01/23 Rosemarie Mcdowell RN Utilization Review Rn Diabetes Education 03/17/23 Ravi Brownlee MD [address] [place] [address] Assigned Heart and Vascular Provider 09/04/23 01/03/24 documented as of this encounter
--- OUTSIDE RECORDS SUMMARY | 2024-01-31 20:07 | XMS_ITS | Encounter Summary ---
Author Organization [facility] Address [address] [place] [address] Care Team Providers Care Panel Builder Name Role Phone Va Glez MD Primary Care Provider Va Glez MD Unavailable Christy Campuzano PA-C Unavailable [phone] Hans Cannon MD Unavailable Burt Jovel MD Unavailable Estella Hassan [facility] Unavailable [phone] Josh Cordero MD, Madhuri Unavailable [phone] John Webb MD Unavailable [phone] John Webb MD Unavailable [phone] Estella Hassan [facility] Unavailable [phone] Lindsay Carey OD Unavailable Richard Kam MD Unavailable Gaby Vila DO Unavailable Rosemarie Mcdowell RN Unavailable Ravi Brownlee MD Unavailable Reason for Visit * Reason Comments Medication Refill Encounter Details Date Type Department Care Team (Late st Contact Info) Description 11/08/[address] [phone] Whitney Hood PA-C [address] [place], [place] [phone] Medication Refill Social History Tobacco Use Types [...] 10/20/2022 How often do you attend [facility] or mosque services? More than 4 times per year 10/20/2022 Do you belong to any clubs o r organizations such as religion groups, unions, fraternal or athletic groups, or [...] Score 1 10/13/2023 [facility] - Occupational Stress Questionnaire Answer Date [...] on file Legal 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 CASINO DUTY MANAGER Gender Identity Not on file Sexual Orientation Not on file Occupation Industry Job Start Date Job End Date Not on file Not on file Not on file Not on file documented as of this encounter Plan of Treatment Upcoming Encounters Date Type Department Care Team (Late st Contact Info) Description 02/01/2024 3:00 PM CASINO DUTY MANAGER Office Visit [address] [place] [phone] Manuel Ahn, OD [address] [place] [address] 02/02/2024 1:30 PM CASINO DUTY MANAGER Therapy Visit [facility] [place] [address] [facility] [address] [place] [phone] Alicja Roldan, OT [address] [place] [address] 02/05/2024 8:00 PM CASINO DUTY MANAGER Therapy Visit [facility] [place] [address] [facility] [address] [place] [phone] 02/13/2024 4:30 PM CASINO DUTY MANAGER Oncology Visit [facility] [address] [place] [phone] Marian Agustin, UROLOGIC NURSE [facility] [address] [facility] [address] [place] [address] 03/01/2024 7:00 AM CASINO DUTY MANAGER Office Visit [facility] [address] [place] [phone] Estella Hassan, [facility] [address] [place] [address] 03/23/2024 2:00 PM CASINO DUTY MANAGER Office Visit [facility] [address] [place] [address] [place] [phone] Lizet Mann PA-C [address] [place] [address] 03/29/2024 3:30 PM CASINO DUTY MANAGER Office Visit [facility] [address] [facility] [address] [place] [phone] Hakeem Chacko MBBS [address] [place] [address] 05/03/2024 3:00 PM CASINO DUTY MANAGER Office Visit [facility] [address] [place] [phone] Gaurav Valenzuela, NESSA FREY [address] [place], [place] [address] [address] [place] [address] 05/22/2024 10:30 AM CDT Office Visit [facility] [address] [place] [phone] Estella Hassan, [facility] [address] [place] [address] 05/22/2024 11:30 AM CDT Office Visit [facility] [address] [place] [phone] [place] [address] [place], [place] [phone] documented as of this encounter Goals Goal [...] for health insurance by looking in to [employer] and talking with a FRW. Completed 3. I will look for a new job and will access resources that the [employer] offers. . Sarted new job 4. Continue [...] documented as of this encounter Care Teams Panel Builder Relationship Specialty [place] [address] [place] [address] PCP - General Family Practice 07/11/14 [place] [address] [place] [address] Assigned PCP 12/16/11 Christy Campuzano PA-C [address] [place] [address] 771952 Referring Physician Family Medicine 04/22/20 Hans Cannon MD [address] [place] [address] Resident Pulmonary Disease 04/22/20 [place] [address] [place] [address] Internal Medicine 05/08/20 12/13/23 Estella Hassan, [facility] [address] [place] [address] Pharmacist Pharmacist 05/26/20 Elaina Moreno MD [address] [place] [address] Cardiovascular & Thoracic Surgery 08/06/20 John Webb MD [address] [place] [id number] Cardiovascular Disease 08/25/21 John Webb MD [address] [place] [place] 334765 Cardiovascular Disease 08/25/21 Estella Hassan, [facility] [address] [place] [address] Assigned MTM Pharmacist 12/09/21 Lindsay Carey OD [address] [place] [address] Ophthalmology 01/29/22 Richard Kam MD [address] [place] [address] [phone] Assigned Musculoskeletal Provider 08/14/22 [place] [address] 876607 Assigned Neuroscience Provider 01/01/23 Rosemarie Mcdowell, RN Country Printer Apprentice Diabetes Education 03/17/23 Ravi Brownlee MD [address] [place] [address] Assigned Heart and Vascular Provider 09/04/23 01/03/24 documented as of this encounter
--- OUTSIDE RECORDS SUMMARY | 2024-01-31 20:07 | XMS_ITS | Encounter Summary ---
Author Organization [place] Address [address] [place] [address] Care Team Providers Care Crude Tester Name Role Phone Va Glez MD Primary Care Provider Va Glez MD Unavailable Christy Campuzano PA-C Unavailable Hans Cannon MD Unavailable [phone] Burt Jovel MD Unavailable Estella Hassan [facility] Unavailable Josh Cordero MD, Madhuri Unavailable [phone] John Webb MD Unavailable [phone] John Webb MD Unavailable Estella Hassan [facility] Unavailable Lindsay Carey OD Unavailable [phone] Richard Kam MD Unavailable Gaby Vila DO Unavailable [phone] Rosemarie Mcdowell RN Unavailable Ravi Brownlee MD Unavailable Reason for Visit * Reason Comments Urgent Care Abdominal Pain Pt complains of abdo tamika pain after eating onset today - generalized spreading across the abdomen dull pain 4-5/10 pain scale Took Tylenol around 10 PM Encounter Details Date Type Department Care Team (Late st Contact Info) Description 11/07/2023 7:00 PM CDT Office Visit [facility] [address] [place] [address] Thu Leyva PA-C [facility] [address] [place] [address] RUQ abdominal pain (Primary Dx) Social History Tobacco Use Types [...] 10/20/2022 How often do you attend [facility] or lutheran services? More than 4 times per year 10/20/2022 Do you belong to any clubs o r organizations such as evangelical groups, unions, fraternal or athletic groups, or [...] Answer Date Recorded PHQ-2 Score 1 10/13/2023 Tajik Harrold of Occupat ional Health - Occupational Stress [...] on file Legal 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 GOODWILL AMBASSADOR Gender Identity Not on file Sexual Orientation Not on file Occupation Industry Job Start Date Job End Date Not on file Not on file Not on file Not on file documented as of this encounter Last Filed Vital Signs Vital Sign Reading Time Taken Comments Blood Pressure 105/71 11/07/2023 7:01 PM CDT Pulse 85 11/07/2023 7:01 PM CDT Temperature 36.7 C (98.1 F) 11/07/2023 7:01 PM CDT Respiratory Rate 18 11/07/2023 7:01 PM CDT Oxygen Saturation 93% 11/07/2023 7:01 PM CDT Inhaled Oxygen Concentration - - Weight 134.8 kg (297 lb 1.6 oz) 11/07/2023 7:01 PM CDT Height - - Body Mass Index 44.52 10/13/2023 3:20 PM CDT documented in this encounter Patient Instructions * Patient Instructions* Thu Leyva PA-C - 11/07/2023 7:00 PM CDT Sent to ER for evaluation of RUQ abdominal pain since today and sob. Ddx includes cholecystitis, pneumonia, asthma exacerbation, PUD, GERD, among others. Consider RUQ abdominal ultrasound and/or CT scan of abdomen. documented in this encounter Progress Notes * Thu Leyva PA-C - 11/07/2023 7:00 PM CDT URGENT CARE VISIT: SUBJECTIVE: Peter Devi is a 63 year old male who presents with abdominal pain since today and sob for a few days. Abdominal pain is located over RUQ and is described as colicky. Pain timing/severity is described as gradual onset and mild and moderate. Pain is improved by nothing and worsened by eating. As sociated symptoms include nausea. He denies cough, chest pain, vomiting, diarrhea, constipation, belching, fever, and chills. He has tried none with no relief of symptoms. Appetite is decreased. Riskfactors include none. Abdominal surgical history includes none. PMH: Past Medical History: Diagnosis Date Arthritis of knee 11/03/2015 CARDIOVASCULAR SCREENING; LDL GOAL LESS THAN 160 12/03/2011 Depressive disorder Diabetes (H) LUZ (generalized anxiety disorder) 01/17/2017 Glucose intolerance (impaired glucose tolerance) 04/03/2016 Major depressive disorder, recurrent episode, moderate (H) 03/26/2016 Mediastinal cyst Moderate persistent asthma 12/19/2013 Moderate persistent asthma without complication 01/27/2015 Morbid obesity due to excess calories (H) 03/26/2016 Obesity 03/15/2014 Allergies: Singulair [montelukast] Medications: Current Outpatient Medications Medication Sig Dispense Refill acetaminophen (TYLENOL) 500 MG tablet Take 500-1,000 mg by mouth every 6 hours as needed for mild pain albuterol (PROAIR HFA/PROVENTIL HFA/VENTOLIN HFA) 108 (90 Base) MCG/ACT inhaler Inhale 2 puffs intothe lungs every 6 hours 18 g 11 atorvastatin (LIPITOR) 40 MG tablet TAKE 1 TABLET BY MOUTH EVERY DAY IN THE EVENING 90 tablet 0 blood glucose (NO BRAND SPECIFIED) lancets standard Use to test blood sugar 1 time daily or as directed. 100 Lancet 3 blood glucose (NO BRAND SPECIFIED) test strip Use to test blood sugar 1 time daily or as directed. 100 strip 3 blood glucose monitoring (NO BRAND SPECIFIED) meter device kit Use to test blood sugar 1 times daily or as directed. 1 kit 0 diclofenac (VOLTAREN) 1 % topical gel Apply 2 g topically 4 times daily escitalopram (LEXAPRO) 10 MG tablet Take 1 tablet (10 mg) by mouth daily 90 tablet 0 fluticasone-salmeterol (ADVAIR) 500-50 MCG/ACT inhaler Inhale 1 puff into the lungs every 12 hours 1 each 5 glipiZIDE (GLUCOTROL XL) 10 MG 24 hr tablet Take 1 tablet (10 mg) by mouth daily 90 tablet 1 ipratropium - albuterol 0.5 mg/2.5 mg/3 mL (DUONEB) 0.5-2.5 (3) MG/3ML neb solution TAKE 1 VIAL (3 MLS) BY NEBULIZATION EVERY 6 HOURS NEEDED FOR SHORTNESS OF BREATH / DYSPNEA /WHEEZING 360 mL 3 metFORMIN (GLUCOPHAGE XR) 500 MG 24 hr tablet TAKE 4 TABLETS BY MOUTH DAILY WITH DINNER 360 tablet 1 Semaglutide, 2 MG/DOSE, (OZEMPIC) 8 MG/3ML pen Inject 2 mg subcutaneously every 7 days 9 mL 3 umeclidinium (INCRUSE ELLIPTA) 62.5 MCG/ACT inhaler Inhale 1 puff into the lungs daily 1 each 5 Continuous Glucose Sensor (FREESTYLE ANDRIA 2 SENSOR) MISC INJECT 1 EACH SUBCUTANEOUSLY EVERY 14 DAYS USE 1 SENSOR EVERY 14 DAYS. USE TO READ BLOOD SUGARS PER PASSENGER SERVICE AGENT'S INSTRUCTIONS. (Patient nottaking: Reported on 11/07/2023) 2 each 5 ondansetron (ZOFRAN ODT) 4 MG ODT tab Take 1 tablet (4 mg) by mouth every 8 hours as needed for nausea or vomiting. (Patient not taking: Reported on 11/07/2023) 10 tablet 0 Social History: Social History Socioeconomic History Marital status: Spouse name: Not on file Number of children: Not on file Years of education: Not on file Highest education level: Not on file Occupational History Employer: [employer] Comment: financial strain, pt is trying to retire Tobacco Use Smoking status: Former Current packs/day: 0.00 Types: Cigarettes Quit date: 12/03/1983 Years since quittin.9 Smokeless tobacco: Never Vaping Use Vaping status: Never Used Substance and Sexual Activity Alcohol use: Not Currently Comment: occ Drug use: No Sexual activity: Not Currently Other Topics Concern Parent/sibling w/ CABG, DC or angioplasty before 65F 55M? Not Asked [...] 10 min Stress: Stress Concern Present (10/20/2022) Tajik Harrold of Occupational Health - Occupational Stress Questionnaire Feeling of Stress : To some extent Social Connections: Unknown (10/20/2022) Social Connection and Isolation Panel [NHANES] Frequency of Communication with Friends and Family: Three times a week Frequency of Social Gatherings with Friends and Family: Twice a week Attends Muslim Services: More than 4 times per year [...] about losing your housing?: No Family History: I have reviewed this patient's family history and updated it with pertinent information if needed. Family History Problem Relation Age of Onset No Known Problems Mother Hypertension Maternal Grandmother ROS: General: Skin: negative Eyes: negative Ears/Nose/Throat: negative Respiratory: Shortness of breath Cardiovascular: negative Gastrointestinal: nausea and stomach pain Genitourinary: negative Musculoskeletal: negative Neurologic: negative Psychiatric: negative Hematologic/Lymphatic/Immunologic: negative Endocrine: negative OBJECTIVE: BP 105/71 (BP Location: Right arm, Patient Position: Sitting, Cuff Size: Adult Large) Pulse 85 Temp 98.1 ??F (36.7 ??C) (Tympanic) Resp 18 Wt 134.8 kg (297 lb 1.6 oz) SpO2 93% BMI 44.52 kg/m?? GENERAL APPEARANCE: healthy, alert and no distress HEAD: atraumatic EYES: EOMI, PERRL, conjunctiva clear RESP: lungs clear to auscultation - no rales, rhonchi or wheezes CV: regular rates and rhythm, normal S1 S2, no murmur noted ABDOMEN: obese, tenderness moderate RUQ SKIN: no suspicious lesions or rashes NEURO: alert and oriented PSYCH: normal mood and affect LABS: Results for orders placed or performed during the hospital encounter of 08/25/24 [place] Draw Status: None Narrative The following orders were created for panel order [place] Draw. Procedure Abnormality Status --------- ------ Extra Blue Top Tube[[id number]] Final result Extra Red Top Tube[[id number]] Final result Please view results for these tests on the individual orders. Basic metabolic panel (BMP) Status: Abnormal Result Value Ref Range Sodium 140 135 - 145 mmol/L Potassium 3.9 3.4 - 5.3 mmol/L Chloride 102 98 - 107 mmol/L Carbon Dioxide (CO2) 25 22 - 29 mmol/L Anion Gap 13 7 - 15 mmol/L Urea Nitrogen 21.0 8.0 - 23.0 mg/dL Creatinine 0.77 0.67 - 1.17 mg/dL GFR Estimate >90 >60 mL/min/1.73m2 Calcium 9.2 8.8 - 10.4 mg/dL Glucose 210 (H) 70 - 99 mg/dL Troponin T, High Sensitivity (now) Status: Abnormal Result Value Ref Range Troponin T, High Sensitivity 25 (H) <=22 ng/L Extra Blue Top Tube Status: None Result Value Ref Range Hold Specimen JIC Extra Red Top Tube Status: None Result Value Ref Range Hold Specimen JIC CBC with platelets and differential Status: None Result Value Ref Range WBC Count 7.5 4.0 - 11.0 10e3/uL RBC Count 5.11 4.40 - 5.90 10e6/uL Hemoglobin 14.1 13.3 - 17.7 g/dL Hematocrit 42.1 40.0 - 53.0 % MCV 82 78 - 100 fL MCH 27.6 26.5 - 33.0 pg MCHC 33.5 31.5 - 36.5 g/dL RDW 13.7 10.0 - 15.0 % Platelet Count 219 150 - 450 10e3/uL % Neutrophils 75 % % Lymphocytes 15 % % Monocytes 7 % % Eosinophils 2 % % Basophils 0 % % Immature Granulocytes 0 % NRBCs per 100 WBC 0 <1 /100 Absolute Neutrophils 5.6 1.6 - 8.3 10e3/uL Absolute Lymphocytes 1.1 0.8 - 5.3 10e3/uL Absolute Monocytes 0.6 0.0 - 1.3 10e3/uL Absolute Eosinophils 0.1 0.0 - 0.7 10e3/uL Absolute Basophils 0.0 0.0 - 0.2 10e3/uL Absolute Immature Granulocytes 0.0 <=0.4 10e3/uL Absolute NRBCs 0.0 10e3/uL Hepatic panel Status: Normal Result Value Ref Range Protein Total 7.0 6.4 - 8.3 g/dL Albumin 4.1 3.5 - 5.2 g/dL Bilirubin Total 0.8 <=1.2 mg/dL Alkaline Phosphatase 93 40 - 150 U/L AST 22 0 - 45 U/L ALT 33 0 - 70 U/L Bilirubin Direct <0.20 0.00 - 0.30 mg/dL Symptomatic Influenza A/B, RSV, & SARS-CoV2 PCR (COVID-19) Nose Status: Normal Specimen: Nose; Swab Result Value Ref Range Influenza A PCR Negative Negative Influenza B PCR Negative Negative RSV PCR Negative Negative SARS CoV2 PCR Negative Negative Narrative Testing was performed using the Xpert Xpress CoV2/Flu/RSV Assay on the [employer] GeneXpert Instrument. This test should be ordered for the detection of SARS- CoV2, influenza, and RSV viruses in individuals with signs and symptoms of respiratory tract infection. This test is for in vitro diagnostic useunder the US FDA for laboratories certified under [...] management. This test was validated by the [facility] [employer]. These laboratories are certified under the Clinical Laboratory Improvement Amendments of 1988 (CLIA-88) as qualified to perfom high complexity laboratory testing. UA with Microscopic reflex to Culture Status: Abnormal Specimen: Urine, Midstream Result Value Ref Range Color Urine Yellow Colorless, Straw, Light Yellow, Yellow Appearance Urine Clear Clear Glucose Urine 100 (A) Negative mg/dL Bilirubin Urine Negative Negative Ketones Urine Negative Negative mg/dL Specific [place] Urine 1.034 1.003 - 1.035 Blood Urine Negative Negative pH Urine 5.5 5.0 - 7.0 Protein Albumin Urine 10 (A) Negative mg/dL Urobilinogen Urine Normal Normal, 2.0 mg/dL Nitrite Urine Negative Negative Leukocyte Esterase Urine Negative Negative Mucus Urine Present (A) None Seen /LPF RBC Urine <1 <=2 /HPF WBC Urine <1 <=5 /HPF Squamous Epithelials Urine <1 <=1 /HPF Narrative Urine Culture not indicated Nt probnp inpatient (BNP) Status: Normal Result Value Ref Range N terminal Pro BNP Inpatient <36 0 - 900 pg/mL Troponin T, High Sensitivity (now) Status: Abnormal Result Value Ref Range Troponin T, High Sensitivity 24 (H) <=22 ng/L EKG 12-lead, tracing only Status: None Result Value Ref Range Systolic Blood Pressure mmHg Diastolic Blood Pressure mmHg Ventricular Rate 99 BPM Atrial Rate 99 BPM FL Interval 146 ms QRS Duration 90 ms QT 346 ms QTc 444 ms P [place] 75 degrees R AXIS -78 degrees T [place] 61 degrees Interpretation ECG Sinus rhythm Left axis deviation 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) Abnormal ECG When compared with ECG of 05-Jun-2023 17:21, No significant change was found Confirmed by - EMERGENCY ROOM, PHYSICIAN ([id number]), editor city KATHIA MENA (Brad) on 11/07/2023 7:07:31AM CBC + differential Status: None Narrative The following orders were created for panel order CBC + differential. Procedure Abnormality Status --------- ------ CBC with platelets and d...[[id number]] Final result Please view results for these tests on the individual orders. ASSESSMENT: ICD-10-CM 1. RUQ abdominal pain R10.11 PLAN: Patient Instructions Sent to ER for evaluation of RUQ abdominal pain since today and sob. Ddx includes cholecystitis, pneumonia, asthma exacerbation, PUD, GERD, among others. Consider RUQ abdominal ultrasound and/or CT scan of abdomen. Patient verbalized understanding and is agreeable to plan. The patient was discharged ambulatory and in stable condition. Thu Leyva PA-C .................... 11/07/2023 7:36 PM documented in this encounter Plan of Treatment Upcoming Encounters Date Type Department Care Team (Late st Contact Info) Description 02/01/2024 3:00 PM GOODWILL AMBASSADOR Office Visit [facility] [place] [address] [facility] [place] [phone] Manuel Ahn [address] [facility] [place] [address] 02/02/2024 1:30 PM GOODWILL AMBASSADOR Therapy Visit [facility] [address] [facility] [address] [place] [phone] Alicja Roldan, OT [address] [place] [address] 02/05/2024 8:00 PM GOODWILL AMBASSADOR Therapy Visit [facility] [place] [address] [facility] [address] [place] [phone] 02/13/2024 4:30 PM GOODWILL AMBASSADOR Oncology Visit [facility] [address] [place] [phone] Marian Agustin, CYTOTECHNOLOGIST SUPERVISOR BEHAVIORAL HEALTH DIRECTOR [address] [facility] [address] [place], [place] [address] 03/01/2024 7:00 AM GOODWILL AMBASSADOR Office Visit [facility] [address] [place] [phone] Estella Hassan, [facility] [address] [place] [address] 03/23/2024 2:00 PM GOODWILL AMBASSADOR Office Visit [facility] [address] [place] [address] [place] [phone] Lizet Mann PA-C [address] [facility] [place] [address] 03/29/2024 3:30 PM GOODWILL AMBASSADOR Office Visit [facility] [address] [facility] [address] [place] [address] Hakeem Chacko MBBS [address] [place] [address] 05/03/2024 3:00 PM GOODWILL AMBASSADOR Office Visit [address] [phone] Gaurav Valenzuela, CYTOTECHNOLOGIST SUPERVISOR [facility] [address] [place] [address] 05/22/2024 10:30 AM CDT Office Visit [address] [phone] Estella Hassan, [facility] [address] [place] [address] 05/22/2024 11:30 AM CDT Office Visit [facility] [address] [place] [phone] [place] [address] [place] [address] documented as of this encounter Goals Goal Patient Goal Type Associated Problems Recent Progress Patient-Stated? Author Health Maintenance Care Plan HP GENERAL PROBLEM 100%( 023 10:17 AM CDT) No Mitra Kendall, MANUFACTURING ENGINEER PAINT Note: Update on 05/25/22 Barriers: Currently without [...] 023 10:17 AM CDT) No Mitra Kendall, MANUFACTURING ENGINEER PAINT Note: Updated on 05/25/22 Barriers: Currently not working.Doesn't have insurance Strengths: Getting SSD. Patient expressed understanding of goal: Action steps to achieve this goal: 1. I will apply for unemployment. Decided not to 2. I will explore my options for health insurance by looking in to [employer] and talking with a FRW. Completed 3. I will look for a new job and will access resources that the [employer] offers. . Sarted new job 4. Continue [...] as of this encounter Visit Diagnoses Diagnosis RUQ abdominal pain- Primary Abdominal pain, right upper quadrant documented in this encounter Additional Health Concerns [...] documented as of this encounter Care Teams Crude Tester Relationship Specialty [place] [address] [place] [address] PCP - General Family Practice 07/11/14 [place] [address] [place] [address] Assigned PCP 12/16/11 Christy Campuzano PA-C [address] [place] [address] [id number] Referring Physician Family Medicine 04/22/20 Hans Cannon MD [address] [place] [address] 682992 Resident Pulmonary Disease 04/22/20 Burt Jovel MD [address] [place], [place] 445102 Internal Medicine 05/08/20 12/13/23 Estella Hassan, [facility] [address] [place], [place] [phone] Pharmacist Pharmacist 05/26/20 Elaina Moreno MD [address] [place] [address] [phone] Cardiovascular & Thoracic Surgery 08/06/20 John Webb MD [address] [place] 9[address]45 Cardiovascular Disease 08/25/21 John Webb MD [address] [place] 106575 Cardiovascular Disease 08/25/21 Estella Hassan, [facility] [address] [place] [address] Assigned MTM Pharmacist 12/09/21 Lindsay Carey OD [address] [facility] [place] [address] Ophthalmology 01/29/22 Richard Kam MD [address] [place] [address] Assigned Musculoskeletal Provider 08/14/22 [place] [address] [place], [address] [address] Assigned Neuroscience Provider 01/01/23 Rosemarie Mcdowell RN Dispatcher Maintenance Diabetes Education 03/17/23 Ravi Brownlee MD [address] [place] [address] 276 [place], [place] 873135 Assigned Heart and Vascular Provider 09/04/23 01/03/24 documented as of this encounter
--- OUTSIDE RECORDS SUMMARY | 2024-01-31 20:07 | XMS_ITS | Encounter Summary ---
Author Organization [place] Address [address] [place] [address] Care Team Providers Care Nca Certified Concierge Name Role Phone Va Glez MD Primary Care Provider Va Glez MD Unavailable Christy Campuzano PA-C Unavailable Hans Cannon MD Unavailable Burt Jovel MD Unavailable Estella Hassan [facility] Unavailable Josh Cordero MD, Madhuri Unavailable [phone] John Webb MD Unavailable [phone] John Webb MD Unavailable Estella Hassan [facility] Unavailable Lindsay Carey OD Unavailable [phone] Richard Kam MD Unavailable Gaby Vila DO Unavailable Rosemarie Mcdowell RN Unavailable Ravi Brownlee MD Unavailable [phone] Encounter Details Date Type Department Care Team (Latest Contact Info) Description 10/25/2023 Travel Social History Tobacco Use Types Packs/Day [...] 10/20/2022 How often do you attend [facility] or voodoo services? More than 4 times per year 10/20/2022 Do you belong to any clubs o r organizations such as taoist groups, unions, fraternal or athletic groups, or [...] PHQ-2 Score 1 10/13/2023 [facility] - [facility]ational Stress [...] in an overnight snf, 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.) Yes 03/18/2023 Are you worried [...] on file Legal 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 EMBRYOLOGY PROFESSOR Gender Identity Not on file Sexual Orientation Not on file Occupation Industry Job Start Date Job End Date Not on file Not on file Not on file Not on file documented as of this encounter Plan of Treatment Upcoming Encounters Date Type Department Care Team (Late st Contact Info) Description 02/01/2024 3:00 PM EMBRYOLOGY PROFESSOR Office Visit [facility] [place] [address] [facility] [place] [phone] Manuel Ahn, [address] [facility] [place] [address] 02/02/2024 1:30 PM EMBRYOLOGY PROFESSOR Therapy Visit [facility] [address] [place] [address] [place] [address] Alicja Roldan, OT 909 [place] [address] 02/05/2024 8:00 PM EMBRYOLOGY PROFESSOR Therapy Visit [facility] [place] [address] [facility] 103 [place] [phone] 02/13/2024 4:30 PM EMBRYOLOGY PROFESSOR Oncology Visit [facility] 9[address] [place] [phone] Marian Agustin, [facility] [address] [facility] [address] [place], [place] [address] 03/01/2024 7:00 AM EMBRYOLOGY PROFESSOR Office Visit [facility] [address] [place] [phone] Estella Hassan, [facility] 3033 [place] [address] 03/23/2024 2:00 PM EMBRYOLOGY PROFESSOR Office Visit [facility] [address] [place] [phone] Lizet Mann PA-C [address]17 [place] [address] 03/29/2024 3:30 PM EMBRYOLOGY PROFESSOR Office Visit [facility] 2945 [facility] 200 [place] [phone] Hakeem Chacko MBBS [address]45 [place] [address] 05/03/2024 3:00 PM EMBRYOLOGY PROFESSOR Office Visit [facility] Sleep [facility] [address] [place] [phone] Gaurav Valenzuela, LOGISTICS MANAGER [facility] [address] [place] [address] 05/22/2024 10:30 AM CDT Office Visit [facility] [address] [place] [phone] Estella Hassan, [facility] [address] [place] [address] 05/22/2024 11:30 AM CDT Office Visit [facility] [address] [place] [phone] [place] [address] [place] [address] documented as of this encounter [...] for health insurance by looking in to [employer] and talking with a FRW. Completed 3. I will look for a new job and will access resources that the [employer] offers. . Sarted new job 4. Continue [...] documented as of this encounter Care Teams Nca Certified Concierge Relationship Specialty [place] [address] [place] [address] PCP - General Family Practice 07/11/14 [place] [address] [place] [address] Assigned PCP 12/16/11 Christy Campuzano PA-C [address] [place] [address] 225052 Referring Physician Family Medicine 04/22/20 Hans Cannon MD [address] [place] [address] 192922 Resident Pulmonary Disease 04/22/20 Burt Jovel MD [address] [place] [address] 894162 Internal Medicine 05/08/20 12/13/23 Estella Hassan, [facility] [address] [place] [address] Pharmacist Pharmacist 05/26/20 Elaina Moreno MD 909 [place], [place] 879545 Cardiovascular & Thoracic Surgery 08/06/20 John Webb MD [address] [place] 218895 Cardiovascular Disease 08/25/21 John Webb MD [address] [place] 208625 Cardiovascular Disease 08/25/21 Estella Hassan, [facility] 30[address] [place], [place] [phone] Assigned MTM Pharmacist 12/09/21 Lindsay Carey OD [address] [facility] [place] [address] Ophthalmology 01/29/22 Richard Kam MD [address] [place] [address] Assigned Musculoskeletal Provider 08/14/22 [place] [address] [place] PENA, [address] [address] Assigned Neuroscience Provider 01/01/23 Rosemarie Mcdowell, RN Associate Application Developer Diabetes Education 03/17/23 Ravi Brownlee MD [address] [place] [address] 276 [place], [place] 939195 Assigned Heart and Vascular Provider 09/04/23 01/03/24 documented as of this encounter
--- OUTSIDE RECORDS SUMMARY | 2024-01-31 20:07 | XMS_ITS | Encounter Summary ---
Author Organization [place] Address [address] [place] [address] Care Team Providers Care Mechanical Service Technician Name Role Phone Va Glez MD Primary Care Provider Va Glez MD Unavailable Christy Campuzano PA-C Unavailable [phone] Hans Cannon MD Unavailable Burt Jovel MD Unavailable [phone] Estella Hassan [facility] Unavailable Josh Cordero MD, Madhuri Unavailable [phone] John Webb MD Unavailable John Webb MD Unavailable Estella Hassan [facility] Unavailable Lindsay Carey OD Unavailable Richard Kam MD Unavailable Gaby Vila DO Unavailable [phone] Rosemarie Mcdowell RN Unavailable Ravi Brownlee MD Unavailable Reason for Visit * Reason Onset Date Comments Prior Auth - Medication 10/25/2023 Continuo us Glucose Sensor (FREESTYLE LEVAR 2 SENSOR) MISC - EPA DENIED Encounter Details Date Type Department Care Team (Late st Contact Info) Description 10/26/2023 Telephone [facility] [address] [place] [address] [place] Glez MD [id number] [place] [address] Prior Auth - Medication (Continuous Glucose Sensor (FREESTYLE LEVAR 2 SENSOR) MISC - EPA DENIED) Social History Tobacco Use Types Packs/Day [...] How often do you attend [facility] or quaker services? 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 Gender Identity Not on file Sexual Orientation Not on file Occupation Industry Job Start Date Job End Date Not on file Not on file Not on file Not on file documented as of this encounter Miscellaneous Notes * Telephone Encounter - Kerry Bernal RN - 10/28/2023 8:30 AM CDT RN spoke to patient Explained that Freestyle Levar sensors are not covered Patient did pay out of pocket, RN advised that if able to do so okay to pay out of pocket - if to expensive or unable to let us know so we can send other testing supplies if recommended by pcp Patient agrees to this plan and has no questions at this time Jyothi Lozada Nurse M [facility] * Telephone Encounter - Kerry Bernal RN - 10/27/2023 12:05 PM CDT Attempt #2 unable to reach, VM full unable to leave message Jyothi Lozada [facility] * Telephone Encounter - Kerry Bernal RN - 10/27/2023 9:06 AM CDT Attempt #1 Unable to reach patient, VM is full RN will try again later today Jyothi Lozada [facility] * Telephone Encounter - Yelena Bustamante RN - 10/26/2023 4:13 PM CDT Attempt x 1. Called pt and unable to leave a vm as vm box is full in order to relay message below regarding PA denial. Yelena Tucker RN Clinic RN [facility] * Telephone Encounter - Va Glez MD - 10/26/2023 3:51 PM CDT Please inform patient. * Telephone Encounter - Christy Gonzales - 10/26/2023 3:03 PM CDT Images from the original note were not included. Retail Pharmacy Prior Authorization Team PRIOR AUTHORIZATION DENIED Medication: FREESTYLE LEVAR 2 SENSOR MISC Insurance Company: [employer] ([facility]) - Denial Date: 10/26/2023 Denial Reason(s): MEDICAL RECORDS MUST SHOW PATIENT IS TREATED WITH INSULIN OR HAVE PROBLEMATIC HYPOGLYCEMIA Appeal Information: IF THE PROVIDER WOULD LIKE TO APPEAL THIS DECISION PLEASE PROVIDE THE PA TEAM WITH A LETTER OF MEDICAL NECESSITY Patient Notified: NO * Telephone Encounter - Jim Cabrera - 10/26/2023 2:36 PM CDT Images from the original note were not included. Retail Pharmacy Prior Authorization Team EPA DENIED: documented in this encounter Plan of Treatment Upcoming Encounters Date Type Department Care Team (Late st Contact Info) Description 02/01/2024 3:00 PM SCADA OPERATOR Office Visit [facility] [address] [place] [phone] Manuel Ahn, [address] [place] [address] 02/02/2024 1:30 PM SCADA OPERATOR Therapy Visit [facility] [address] [facility] [address] [place] [phone] Alicja Roldan, OT [address] [place] [address] 02/05/2024 8:00 PM SCADA OPERATOR Therapy Visit [facility] [place] [address] [place] [address] 103 [place] [phone] 02/13/2024 4:30 PM SCADA OPERATOR Oncology [facility] [address] [facility] [place] [phone] Marian Agustin, PIPE FOREMAN [facility] [address] [facility] 207 [place] [address] 03/01/2024 7:00 AM SCADA OPERATOR Office Visit [address] [phone] Estella Hassan, [facility] 3037 [place] [address] 03/23/2024 2:00 PM SCADA OPERATOR Office Visit [facility] [address] [place] [phone] Lizet Mann PA-C 717 [place] [address] 03/29/2024 3:30 PM SCADA OPERATOR Office Visit [facility] [address] [facility] 200 [place] [phone] Hakeem Chacko MBBS [address] [place] [address] 05/03/2024 3:00 PM SCADA OPERATOR Office Visit [facility] [address] [phone] Gaurav Valenzuela, PIPE FOREMAN [facility] [address] [place] [address] 05/22/2024 10:30 AM CDT Office Visit [address] [phone] Estella Hassan, [facility] [address] [place] [address] 05/22/2024 11:30 AM CDT Office Visit [facility] [address] [place] [phone] [place] [address] [place], [place] [phone] documented as of this encounter Goals Goal [...] for health insurance by looking in to [employer] and talking with a FRW. Completed 3. I will look for a new job and will access resources that the [employer] offers. . Sarted new job 4. Continue to use Single Care to reduce the cost of my prescriptions. Create an action plan to increase financial stability Care Plan Patient expresses financial resource strain No Josefina Patle Establish Regular Follow-Ups with PCP Care Plan [...] Diagnosis Major depressive disorder, recurrent episode, moderate (H)- Primary Major depressive disorder, recurrent episode, moderate documented [...] documented as of this encounter Care Teams Mechanical Service Technician Relationship Specialty [place] [address] [place] [address] PCP - General Family Practice 07/11/14 [place] [address] [place] [address] Assigned PCP 12/16/11 Christy Campuzano PA-C [address] [place] [address] 757702 Referring Physician Family Medicine 04/22/20 Hans Cannon MD [address] [place] [address] 088792 Resident Pulmonary Disease 04/22/20 Burt Jovel MD [address] [place] [address] 748792 Internal Medicine 05/08/20 12/13/23 Estella Hassan [facility] [address] [place] [address] Pharmacist Pharmacist 05/26/20 Elaina Moreno MD 9 [place] [address] Cardiovascular & Thoracic Surgery 08/06/20 John Webb MD [address] [address] Cardiovascular Disease 08/25/21 John Webb MD [address] [address] Cardiovascular Disease 08/25/21 [facility] 30[address] [place] [address] Assigned MTM Pharmacist 12/09/21 Lindsay Carey OD [address] [facility] [place] [address] Ophthalmology 01/29/22 Richrad Kam MD [address] [place] [address] [id number] Assigned Musculoskeletal Provider 08/14/22 [place] [address] [place], [address] 627147 Assigned Neuroscience Provider 01/01/23 Rosemarie Mcdowell RN Tile Installer Diabetes Education 03/17/23 Ravi Brownlee MD [address] [place] [address] 276 [place], [place] [phone] Assigned Heart and Vascular Provider 09/04/23 01/03/24 documented as of this encounter
--- OUTSIDE RECORDS SUMMARY | 2024-01-31 20:08 | XMS_ITS | Encounter Summary ---
Author Organization [facility] [place] Address [address] [place] [address] Care Team Providers Care Imaging Clerk Name Role Phone Va Glez MD Primary Care Provider Va Glez MD Unavailable Kerry Bernal RN Unavailable [phone] Ravi Barillas DPM Unavailable [phone] Christy Campuzano PA-C Unavailable Hans Cannon MD Unavailable Mitra Kendall EMERGENCY DEPARTMENT NURSE Unavailable [phone] Burt Jovel MD Unavailable Estella Hassan [facility] Unavailable Reji Chavez MD Unavailable [phone] Josh Cordero MD, Madhuri Unavailable [phone] Josh Cordero MD, Madhuri Unavailable [phone] Kelsi Hassan MD Unavailable [phone] John Webb MD Unavailable [phone] John Webb MD Unavailable Estella Hassan [facility] Unavailable Nav Hughes MD Unavailable [phone] Cassandra Menodza MD Unavailable Estella Hassan [facility] Unavailable [phone] Mitra Kendall EMERGENCY DEPARTMENT NURSE Unavailable Lindsay Carey OD Unavailable BenedictRavi bajwa MD Unavailable [phone] Arabella Fishman MA Unavailable [phone] Richard Kam MD Unavailable Marisol Patel [facility] Unavailable Gaby Vila DO Unavailable [phone] Rosemarie Mcdowell RN Unavailable Ravi Brownlee MD Unavailable Mitra Kendall EMERGENCY DEPARTMENT NURSE Unavailable Lizet Mann PA-C Unavailable [phone] Ravi Brownlee MD Unavailable Nav Hughes MD Unavailable [phone] Manuel Ahn OD Unavailable Arabella Fishman MA Unavailable [phone] Thalia Charles [facility] Unavailable Unavailable Encounter Details Date Type Department Care Team (Late st Contact Info) Description 07/06/2021 [facility] [address] [phone] Estella Hassan, [facility] [address] [place] [address] Social History Tobacco Use Types Packs/Day Years Used Date Smoking Tobacco: Former Cigarettes Q uit: 12/03/1983 Smokeless Tobacco: Never Alcohol Use Standard Drinks/Week Comments Yes 0 (1 standard drink = 0.6 oz pur e alcohol) occ Humiliation, Afraid, Rape, and Kick questionnair e Answer Date Recorded Within the last year, have y ou been afraid of your partner or ex-partner? No 05/31/2019 Within the last year, have y ou been humiliated or emotionally abused in other ways by your partner or ex-partner? No Within the last year, have y ou been kicked, hit, slapped, or otherwise physically hurt by your partner or ex-partner? No 05/31/2019 Within the last year, have y ou been raped or forced to have any kind of sexual activity by your partner or ex-partner? No 05/31/2019 Social Connection and Isolation Panel [NHANES] A nswer Date Recorded Frequency of Communication with Friends and Fami ly Three times a week 05/31/2019 Frequency of Social Gatherin gs with Friends and Family Not on file 05/31/2019 Attends [employer] Services Not on file 05/30 Active Member of Clubs or Organizations Not on f ile 05/31/2019 Attends Club or Organization Meetings Not on heena e 05/31/2019 Marital Status Not on file 05/31/2019 Overall Financial Resource Strain (CARDIA) Answe r Date Recorded How hard is it for you to pa y for the very basics like food, housing, medical care, and heating? Not hard at all 05/31/2019 PHQ-2 Answer Date Recorded PHQ-2 Total Score (Adult) - Positive if 3 or more points; Administer PHQ-9 if positive 2 05/13/2021 [facility] of Occupat ional Health - Occupational Stress Questionnaire Answer Date Recorded Feeling of Stress To some extent 05/31/2019 Exercise Vital Sign Answer Date Recorde d Days of Exercise per Week 1 day 2019 Minutes of Exercise per Session Not asked 05/31/2019 Hunger Vital Sign Answer Date Recorded Within the past 12 months, y ou worried that your food would run out before you got the money to buy more. Never true 05/31/19 20 Within the past 12 months, t he food you bought just didn't last and you didn't have money to get more. Never true 05/31/2019 PRAPARE - Transportation Answer Date Re corded In the past 12 months, has l ack of transportation kept you from medical appointments or from getting medications? No 05/12 In the past 12 months, has l ack of transportation kept you from meetings, work, or from getting things needed for daily living? No 05/31/2019 Sex and Gender Information Value Date Recorded Sex Assigned at Not on file Legal 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 MS SQL DBA Gender Identity Not on file Sexual Orientation Not on file Occupation Industry Job Start Date Job End Date Not on file Not on file Not on file Not on file COVID-19 Exposure Response Date Recorded In the last 10 days, have yo u been in contact with someone who was confirmed or suspected to have Coronavirus/COVID-19? No / Unsure 06/23/2021 3:39 PM CDT documented as of this encounter Plan of Treatment Upcoming Encounters Date Type Department Care Team (Late st Contact Info) Description 02/01/2024 3:00 PM MS SQL DBA Office Visit [facility] 6[address] [place] [phone] Manuel Ahn, [address] [place] [address] 02/02/2024 1:30 PM MS SQL DBA Therapy Visit [facility] [address] [facility] [address] [place] [phone] Alicja Roldan OT 909 [place] [address] 02/05/2024 8:00 PM MS SQL DBA Therapy Visit [facility] [place] [address] [place] [address] 103 [place] [phone] 02/13/2024 4:30 PM MS SQL DBA Oncology Visit [facility] 909 [place] [phone] Marian Agustin, NESSA RIVET CATCHER [address] [place] [address] [facility] 207 [place] [address] 03/01/2024 7:00 AM MS SQL DBA Office Visit [address] [phone] Estella Hassan, [facility] 3033 [place] [address] 03/23/2024 2:00 PM MS SQL DBA Office Visit [facility] [address] [place] [address] [place] [address] Lizet Mann PA-C [address] [place] [address] 03/29/2024 3:30 PM MS SQL DBA Office [facility] 2945 [facility] 200 [place] [phone] Hakeem Chacko MBBS 2945 [place] [address] 05/03/2024 3:00 PM MS SQL DBA Office [facility] [address] [place] [phone] Gaurav Valenzuela, RESOURCE CONSERVATION MANAGER [address] 649154 05/22/2024 10:30 AM CDT Office Visit [address] [phone] Estella Hassan, [place] [address]1273 [place] [address] 05/22/2024 11:30 AM CDT Office Visit [address] [phone] Va Glez MD [address] [place] [address] [phone] documented as of this encounter Visit Diagnoses Not on filedocumented in this encounter Additional Health Concerns Infection Onset Date Last Indicated Resolved Time Rule Out COVID-19 01/22/2022 01/22/2022 01/24/2022 1:05 PM MS SQL DBA Rule Out COVID-19 01/25/2022 01/25/2022 01/25/2022 5:21 AM MS SQL DBA Influenza 01/25/2022 01/25/2022 02/01/2022 11:4 1 PM MS SQL DBA Rule Out COVID-19 07/29/2022 07/29/2022 07/31/2022 11:17 AM CDT Rule Out COVID-19 03/23/2023 03/23/2023 03/23/2023 6:30 PM MS SQL DBA COVID-19 03/23/2023 03/23/2023 04/13/2023 11:4 0 PM MS SQL DBA Rule Out COVID-19 06/05/2023 06/05/2023 06/05/2023 5:53 PM CDT Rule Out COVID-19 11/06/2023 11/06/2023 11/06/2023 11:05 PM CDT Rule Out COVID-19 11/20/2023 11/20/2023 11/20/2023 6:43 PM CDT Rule Out COVID-19 12/27/2023 12/27/2023 12/29/2023 1:37 PM CDT Assessment Noted Time PHQ-9 Depression Total Score: 7 05/15/19 22 7:03 AM MS SQL DBA documented as of this encounter Care Teams Imaging Clerk Relationship Specialty [place] [address] [place] [address] PCP - General Family Practice 07/11/14 [place] [address] [place] [address] Assigned PCP 12/16/11 Kerry Bernal RN Personal Advocate & Liaison (PAL) 01/08/19 07/10/23 Ravi Barillas DPM [address] [facility] [address] [place] [address] Assigned Musculoskeletal Provider 03/23/20 10/30/21 Christy Campuzano PA-C [address] [place] [address] 197892 Referring Physician Family Medicine 04/22/20 Hans Cannno MD [address] [place] [address] 460312 Resident Pulmonary Disease 04/22/20 Mitra Kendall, [facility] Lead Outpatient Coder Primary Care - CC 01/08/1901/12 Burt Jovel MD Internal Medicine 05/08/20 12/13/23 [facility] [address] [place], [place] 326276 Pharmacist Pharmacist 05/26/20 Reji Chavez MD [address] [place] [phone] Assigned Heart and Vascular Provider 05/18/20 10/30/21 Elaina Moreno MD [address] [place] [address] 030635 Assigned Surgical Provider 05/18/20 11/19/22 Elaina Moreno MD [address] [place] [address] Cardiovascular & Thoracic Surgery 08/06/20 Kelsi Hassan MD [address] [place] [address] 284 [place] [address] Assigned Pulmonology Provider 06/28/21 02/05/22 John Webb MD [address] [place] [address] Cardiovascular Disease 08/25/21 John Webb MD [address] [address] Cardiovascular Disease 08/25/21 Estella Hassan, [facility] [address] [place] [address] Assigned MTM Pharmacist 09/05/21 Nav Hughes MD [address] [place] [address] Assigned Heart and Vascular Provider 10/31/21 09/03/23 Cassandra Mendoza MD ORTHOPAEDIC SURGERY [address] [place] [address] Assigned Musculoskeletal Provider 10/31/21 08/13/22 Estella Hassan, [facility] [place] [address] Assigned MTM Pharmacist 12/09/21 Mitra Kendall, [facility] Lead Outpatient Coder Primary Care - CC 01/26/2210/28 Lindsay Carey OD [address] [facility] [place] [place] [address] Ophthalmology 01/29/22 Ravi Brownlee MD [address] 973055 Assigned Pulmonology Provider 02/06/22 09/03/23 Arabella Fishman MA Financial Resource Worker 02/22/22 02/23/22 Richard Kam MD [address] [place] [address] Assigned Musculoskeletal Provider 08/14/22 [facility] [address] [address] Pharmacist Pharmacist 11/22/22 01/09/23 [place] [address] [place] [address] [address] Assigned Neuroscience Provider 01/01/23 Rosemarie Mcdowell, RN [employer] Bi Architect Diabetes Education 03/17/23 Ravi Brownlee MD [address] [place] [address] 834595 Assigned Heart and Vascular Provider 09/04/23 01/03/24 Mitra Kendall, EMERGENCY DEPARTMENT NURSE Lead Outpatient Coder Primary Care - CC 12/12/23 Lizet Mann PAUniqueC 7[address] [facility] [place] [address] Assigned Cancer Care Provider 01/04/24 Ravi Brownlee MD [address] [facility] [address] [place] [address] Assigned Pulmonology Provider 01/04/24 Nav Hughes MD [address] [facility] [place], [place] 349395 Assigned Heart and Vascular Provider 01/04/24 Manuel Ahn OD [address] [facility] [place] [address] Cotton Picking Machine Operator 01/05/24 Arabella Fishman MA Financial Resource Worker 01/06/24 Thalia Charles [facility] Pharmacist Pharmacy 01/26/24 documented as of this encounter
--- OUTSIDE RECORDS SUMMARY | 2024-01-31 20:08 | XMS_ITS | Encounter Summary ---
Author Organization [place] Address [address] [place] [address] Care Team Providers Care Superintendent Gas Distribution Name Role Phone Va Glez MD Primary Care Provider Va Glez MD Unavailable Kerry Bernal RN Unavailable [phone] Ravi Barillas DPM Unavailable [phone] Christy Campuzano PA-C Unavailable Hans Cannon MD Unavailable Mitra Kendall PUMP AND BLOWER OPERATOR Unavailable Burt Jovel MD Unavailable Estella Hassan [facility] Unavailable [phone] Reji Chavez MD Unavailable Josh Cordero MD, Madhuri Unavailable [phone] Josh Cordero MD, Madhuri Unavailable [phone] Kelsi Hassan MD Unavailable [phone] John Webb MD Unavailable [phone] John Webb MD Unavailable Estella Hassan [facility] Unavailable [phone] Nav Hughes MD Unavailable [phone] Cassandra Mendoza MD Unavailable Estella Hassan H Unavailable Mitra Kendall PUMP AND BLOWER OPERATOR Unavailable [phone] Aurelio Lindsay Kenzie OD Unavailable Ravi Brownlee MD Unavailable Arabella Fishman MA Unavailable [phone] Richard Kam MD Unavailable Marisol Patel [facility] Unavailable [phone] Gaby Vila DO Unavailable Rosemarie Mcdowell RN Unavailable Ravi Brownlee MD Unavailable [phone] Mitra Kendall PUMP AND BLOWER OPERATOR Unavailable Lizet Mann PA-C Unavailable [phone] Ravi Brownlee MD Unavailable [phone] Nav Hughes MD Unavailable [phone] Manuel Ahn OD Unavailable Arabella Fishman MA Unavailable [phone] Thalia Charles [facility] Unavailable Unavailable Encounter Details Date Type Department Care Team (Late st Contact Info) Description 10/29/2021 [facility] [address] [facility] [address] [place] [address] [facility] Social History Tobacco Use Types Packs/Day Years [...] and Family Not on file 05/31/2019 Attends [employer] Services Not on file 05/30 Active Member [...] or more points; Administer PHQ-9 if positive 1 08/04/2021 [facility] [place] [facility] Occupat ional Health - Occupational Stress [...] on file Legal 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 PERMASTONE INSTALLER Gender Identity Not on file Sexual Orientation Not on file Occupation Industry Job Start Date Job End Date Not on file Not on file Not on file Not on file COVID-19 Exposure Response Date Recorded In the last 10 days, have yo u been in contact with someone who was confirmed or suspected to have Coronavirus/COVID-19? No / Unsure 10/29/2021 3:43 PM CDT documented as of this encounter Plan of Treatment Upcoming Encounters Date Type Department Care Team (Late st Contact Info) Description 02/01/2024 3:00 PM PERMASTONE INSTALLER Office Visit [facility] [address] [place] [phone] Manuel Ahn, [address] [place] [address] 02/02/2024 1:30 PM PERMASTONE INSTALLER Therapy Visit [facility] [address] [facility] [address] [place] [phone] Alicja Roldan, OT [address] [place], [place] 07[address] 02/05/2024 8:00 PM PERMASTONE INSTALLER Therapy Visit [facility] [place] [address] [place] [address] [address] [place] [phone] 02/13/2024 4:30 PM PERMASTONE INSTALLER Oncology Visit [facility] [address] [place] [phone] Marian Agustin, CONVEYOR CONSOLE OPERATOR E COMMERCE DEVELOPER [address] [facility] [address] [place], [place] 9[address]25 03/01/2024 7:00 AM PERMASTONE INSTALLER Office Visit [facility] [address] [place] [phone] Estella Hassan, [facility] [address] [place], [place] [address] 03/23/2024 2:00 PM PERMASTONE INSTALLER Office [facility] [address] [place] [phone] Lizet Mann PA-C 7[address] [place] [address] 03/29/2024 3:30 PM PERMASTONE INSTALLER Office Visit [facility] [address] [facility] 200 [place] [address] Hakeem Chacko MBBS [address] [place] [address] 05/03/2024 3:00 PM PERMASTONE INSTALLER Office Visit [facility] [address] [place] [phone] Gaurav Valenzuela, CONVEYOR CONSOLE OPERATOR [address] [address] 05/22/2024 10:30 AM CDT Office Visit [address] [phone] Estella Hassan, [facility] [address] [place] [address] 05/22/2024 11:30 AM CDT Office Visit [address] [phone] Va Glez MD [address] [place] [address] [phone] documented as of this encounter Visit Diagnoses Not on filedocumented in this encounter Additional Health Concerns Infection Onset Date Last Indicated Resolved Time Rule Out COVID-19 01/22/2022 01/22/2022 01/24/2022 1:05 PM PERMASTONE INSTALLER Rule Out COVID-19 01/25/2022 01/25/2022 01/25/2022 5:21 AM PERMASTONE INSTALLER Influenza 01/25/2022 01/25/2022 02/01/2022 11:4 1 PM PERMASTONE INSTALLER Rule Out COVID-19 07/29/2022 07/29/2022 07/31/2022 11:17 AM CDT Rule Out COVID-19 03/23/2023 03/23/2023 03/23/2023 6:30 PM PERMASTONE INSTALLER COVID-19 03/23/2023 03/23/2023 04/13/2023 11:4 0 PM PERMASTONE INSTALLER Rule Out COVID-19 06/05/2023 06/05/2023 06/05/2023 5:53 PM CDT Rule Out COVID-19 11/06/2023 11/06/2023 11/06/2023 11:05 PM CDT Rule Out COVID-19 11/20/2023 11/20/2023 11/20/2023 6:43 PM CDT Rule Out COVID-19 12/27/2023 12/27/2023 12/29/2023 1:37 PM CDT Assessment Noted Time PHQ-9 Depression Total Score: 6 08/05/19 3:46 PM CDT documented as of this encounter Care Teams Superintendent Gas Distribution Relationship Specialty [place] [address] [place] [address] PCP - General Family Practice 07/11/14 [place] [address] [place] [address] Assigned PCP 12/16/11 Kerry Bernal RN Personal Advocate & Liaison (PAL) 01/08/19 07/10/23 Ravi Barillas DPM [address] [address] Assigned Musculoskeletal Provider 03/23/20 10/30/21 Christy Campuzano PA-C [address] [place] [address] Referring Physician Family Medicine 04/22/20 Hans Cannon MD [address] [place] [address] Resident Pulmonary Disease 04/22/20 Mitra Kendall, [facility] Lead Studio Grip Primary Care - CC 01/08/1901/12 Burt Jovel MD Internal Medicine 05/08/20 12/13/23 Estella Hassan, [facility] [address] [place], [place] 4[address] Pharmacist Pharmacist 05/26/20 Reji Chavez MD [address] [place] [phone] Assigned Heart and Vascular Provider 05/18/20 10/30/21 Elaina Moreno MD [address] [place] [address] [phone] Assigned Surgical Provider 05/18/20 11/19/22 Elaina Moreno MD [address] [place] [address] Cardiovascular & Thoracic Surgery 08/06/20 Kelsi Hassan MD [address] [place] [address] 284 [place] [address] Assigned Pulmonology Provider 06/28/21 02/05/22 John Webb MD [address] 215555 Cardiovascular Disease 08/25/21 John Webb MD [address] 227605 Cardiovascular Disease 08/25/21 Estella Hassan, [facility] [address] [place] [address] Assigned MTM Pharmacist 09/05/21 Nav Hughes MD [address] [place] 510775 Assigned Heart and Vascular Provider 10/31/21 09/03/23 Cassandra Mendoza MD ORTHOPAEDIC SURGERY [facility] [address] 904104 Assigned Musculoskeletal Provider 10/31/21 08/13/22 Estella Hassan, [facility] [address] [place] [address] 159106 Assigned MTM Pharmacist 12/09/21 Mitra Kendall, PUMP AND BLOWER OPERATOR Lead Studio Grip Primary Care - CC 01/26/2210/28 Lindsay Carey OD [address] [facility] [place] [address] Ophthalmology 01/29/22 Ravi Brownlee MD [address] [place] [address] Assigned Pulmonology Provider 02/06/22 09/03/23 Arabella Fishman MA Financial Resource Worker 02/22/22 02/23/22 Richard Kam MD [address] [place] [address] 941505 Assigned Musculoskeletal Provider 08/14/22 [facility] [address] [facility] [address] [place] [phone] Pharmacist Pharmacist 11/22/22 01/09/23 [place] [address] [place] [address] 544397 Assigned Neuroscience Provider 01/01/23 Rosemarie Mcdowell, RN Manufacturing Worker Diabetes Education 03/17/23 Ravi Brownlee MD [address] [place] [address] Assigned Heart and Vascular Provider 09/04/23 01/03/24 Mitra Kendall, PUMP AND BLOWER OPERATOR Lead Studio Grip Primary Care - CC 12/12/23 Lizet Mann PA-C [address] [place], [place] 079675 Assigned Cancer Care Provider 01/04/24 Ravi Brownlee MD [address] [facility] [address] [place], [place] 27[address]85 Assigned Pulmonology Provider 01/04/24 Nav Hughes MD [address] [place] 39[address] Assigned Heart and Vascular Provider 01/04/24 Manuel Ahn OD [address] [facility] [place] [id number] Clinical Manager Home Care 01/05/24 Arabella Fishman MA Financial Resource Worker 01/06/24 Thalia Charles [facility] Pharmacist Pharmacy 01/26/24 documented as of this encounter
--- OUTSIDE RECORDS SUMMARY | 2024-01-31 20:08 | XMS_ITS | Encounter Summary ---
Author Organization [place] Address [address] [place] [address] Care Team Providers Care Motor Overhauler Name Role Phone Va Glez MD Primary Care Provider [phone] Va Glez MD Unavailable Kerry Bernal RN Unavailable Christy Campuzano PA-C Unavailable [phone] Hans Cannon MD Unavailable Burt Jovel MD Unavailable Estella Hassan [facility] Unavailable [phone] Josh Cordero MD, Madhuri Unavailable [phone] John Webb MD Unavailable John Webb MD Unavailable [phone] Nav Hughes MD Unavailable [phone] Estella Hassan [facility] Unavailable Lindsay Carey OD Unavailable Ravi Brownlee MD Unavailable Richard Kam MD Unavailable Gaby Vila DO Unavailable [phone] Rosemarie Mcdowell RN Unavailable Ravi Brownlee MD Unavailable [phone] Mitra Kendall LINEN ROOM WORKER Unavailable [phone] Lizet Mann PA-C Unavailable Ravi Brownlee MD Unavailable [phone] Nav Hughes MD Unavailable [phone] Anabelle Manuelgina Syed OD Unavailable [phone] Arabella Fishman MA Unavailable [phone] Thalia Charles [facility] Unavailable Unavailable Encounter Details Date Type Department Care Team (Late st Contact Info) Description 05/20/2023 [facility] [place] [address] [facility] [address] [place] [address] [place] Social History Tobacco Use Types Packs/Day Years [...] week 10/20/2022 How often do you attend [facility] or confucianist services? More than 4 times per year [...] 10/20/2022 PHQ-2 Answer Date Recorded PHQ-2 Score 0 03/24/2023 [facility] - [...] in an abandoned building, in an overnight long-term, 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.) Yes 03/18/2023 Are you worried [...] motionally safe where you currently live? Yes 01/18/2023 Within the past 12 months, h ave you been hit, slapped, kicked or otherwise physically hurt by someone? No 01/18/2023 Within the past 12 months, h ave you been humiliated or emotionally abused in other ways by your partner or ex-partner? No 01/18/2023 Sex and Gender Information Value Date Recorded Sex Assigned at Not on file Legal 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 SENIOR PROJECT CONTROLS SPECIALIST Gender Identity Not on file Sexual Orientation Not on file Occupation Industry Job Start Date Job End Date Not on file Not on file Not on file Not on file documented as of this encounter Plan of Treatment Upcoming Encounters Date Type Department Care Team (Late st Contact Info) Description 02/01/2024 3:00 PM SENIOR PROJECT CONTROLS SPECIALIST Office Visit [facility] [address] [place] [address] Manuel Ahn [address] [place] [address] 02/02/2024 1:30 PM SENIOR PROJECT CONTROLS SPECIALIST Therapy Visit [facility] Specialty [place] [address] [facility] [address] [place] [phone] Alicja Roldan, OT [address] [place] [address] 02/05/2024 8:00 PM SENIOR PROJECT CONTROLS SPECIALIST Therapy Visit [facility] [place] [address] [place] [address] 103 [place] [phone] 02/13/2024 4:30 PM SENIOR PROJECT CONTROLS SPECIALIST Oncology Visit [facility] [address] [place] [phone] Marian Agustin, [facility] [address] [facility] 207 [place] [address] 03/01/2024 7:00 AM SENIOR PROJECT CONTROLS SPECIALIST Office Visit [facility] [address] [place] [phone] Estella Hassan, [facility] 30[address] [place] [address] 03/23/2024 2:00 PM SENIOR PROJECT CONTROLS SPECIALIST Office Visit [facility] [address] [place] [address] Lizet Mann PA-C 717 [place] [address] 03/29/2024 3:30 PM SENIOR PROJECT CONTROLS SPECIALIST Office Visit [facility] [address]45 [facility] 200 [place] [address] Hakeem Chacko MBBS 2945 [place] [address] 05/03/2024 3:00 PM SENIOR PROJECT CONTROLS SPECIALIST Office Visit [facility] [place] [address], [place] [address] Gaurav Valenzuela, CLASSIFIED ADVERTISING SUPERVISOR [address] [address] 05/22/2024 10:30 AM CDT Office Visit [address] [phone] Estella Hassan, [facility] [address] [place] [address] 05/22/2024 11:30 AM CDT Office Visit [address] [phone] [place] [address] [place] [address] [phone] documented as of this encounter Goals Goal Patient Goal Type Associated Problems Recent Progress Patient-Stated? Author Health Maintenance Care Plan HP GENERAL PROBLEM 100%( 023 10:17 AM CDT) No Mitra Kendall, LINEN ROOM WORKER Note: Update on 05/25/22 Barriers: Currently without [...] for health insurance by looking in to [employer] and talking with a FRW. Completed 3. I will look for a new job and will access resources that the [employer] offers. . Sarted new job 4. Continue [...] Last Indicated Resolved Time Rule Out COVID-19 06/05/2023 06/05/2023 06/05/2023 5:53 PM CDT Rule Out COVID-19 11/06/2023 11/06/2023 11/06/2023 11:05 PM CDT Rule Out COVID-19 11/20/2023 11/20/2023 11/20/2023 6:43 PM CDT Rule Out COVID-19 12/27/2023 12/27/2023 12/29/2023 1:37 PM CDT Assessment Noted Time PHQ-9 Depression Total Score: 2 03/24/19 4:21 PM SENIOR PROJECT CONTROLS SPECIALIST documented as of this encounter Care Teams Motor Overhauler Relationship Specialty [place] [address] [place], [place] [phone] PCP - General Family Practice 07/11/14 [place] [address] [place], [place] [phone] Assigned PCP 12/16/11 Kerry Bernal, INOCENCIO Personal Advocate & Liaison (PAL) 01/08/19 07/10/23 Christy Campuzano PA-C [address] [place] [address] [phone] Referring Physician Family Medicine 04/22/20 Hans Cannon MD [address] [place] [address] 765092 Resident Pulmonary Disease 04/22/20 Burt Jovel MD [address] [place] [address] [phone] Internal Medicine 05/08/20 12/13/23 Estella Hassan, [facility] [address] [place] [address] Pharmacist Pharmacist 05/26/20 Elaina Moreno MD [address] [place] [address] Cardiovascular & Thoracic Surgery 08/06/20 John Webb MD [address] [address] Cardiovascular Disease 08/25/21 John Webb MD [address] [address] Cardiovascular Disease 08/25/21 Nav Hughes MD [address] [place] [address] Assigned Heart and Vascular Provider 10/31/21 09/03/23 Estella Hassan, [facility] [address] [place] [address] Assigned MTM Pharmacist 12/09/21 Lindsay Carey OD [address] [facility] [place] [address] Ophthalmology 01/29/22 Ravi Brownlee MD [address] [place] [address] 037005 Assigned Pulmonology Provider 02/06/22 09/03/23 Richard Kam MD [address] [place], [place] 207455 Assigned Musculoskeletal Provider 08/14/22 [place] [address] [place] [address] [address] 995357 Assigned Neuroscience Provider 01/01/23 Rosemarie Mcdowell RN Trimmer Loader Diabetes Education 03/17/23 Ravi Brownlee MD [address] [address] Assigned Heart and Vascular Provider 09/04/23 01/03/24 EnochMitra oates Jewel, [facility] Lead Air Filler Primary Care - CC 12/12/23 Lizet Mann PA-C 717 [place] [address] Assigned Cancer Care Provider 01/04/24 Ravi Brownlee MD [address] [place] [address] Assigned Pulmonology Provider 01/04/24 Nav Hughes MD [address] [address] Assigned Heart and Vascular Provider 01/04/24 Manuel Ahn OD [address] [place] [address] Manager Forms 01/05/24 Arabella Fishman MA Financial Resource Worker 01/06/24 Thalia Charles [facility] Pharmacist Pharmacy 01/26/24 documented as of this encounter
--- OUTSIDE RECORDS SUMMARY | 2024-01-31 20:08 | XMS_ITS | Encounter Summary ---
Author Organization [facility] Address [address] [place] [address] Care Team Providers Care Commercial Producer Name Role Phone Va Glez MD Primary Care Provider Va Glez MD Unavailable Kerry Bernal RN Unavailable Christy Campuzano PA-C Unavailable Hans Cannon MD Unavailable Burt Jovel MD Unavailable [phone] Estella Hassan [facility] Unavailable Josh Cordero MD, Madhuri Unavailable [phone] Josh Cordero MD, Elaina Unavailable [phone] Kelsi Hassan MD Unavailable [phone] John Webb MD Unavailable [phone] John Webb MD Unavailable Nav Hughes MD Unavailable [phone] Cassandra Mendoza MD Unavailable Estella Hassan [facility] Unavailable [phone] Mitra Kendall POWDER MONKEY Unavailable Lindsay Carey OD Unavailable [phone] Ravi Brownlee MD Unavailable Arabella Fishman MA Unavailable [phone] Richard Kam MD Unavailable Marisol Patel [facility] Unavailable [phone] Gaby Vila DO Unavailable Rosemarie Mcdowell RN Unavailable [phone] Ravi Brownlee MD Unavailable Mitra Kendall [employer]KEY Unavailable [phone] Lizet Mann PA-C Unavailable Ravi Brownlee MD Unavailable [phone] Nav Hughes MD Unavailable [phone] Manuel Ahn OD Unavailable [phone] Arabella Fishman MA Unavailable [phone] Thalia Charles [facility] Unavailable Unavailable Encounter Details Date Type Department Care Team (Late st Contact Info) Description 01/29/2022 [facility] [address] [address] [facility] Social History Tobacco Use Types Packs/Day Years [...] and Family Not on file 05/31/2019 Attends Jainism Services Not on file 05/30 Active Member of Clubs or Organizations Not on f ile 05/31/2019 Attends Club or Organization Meetings Not on heena e 05/31/2019 Marital Status Not on file 05/31/2019 Overall Financial Resource Strain (CARDIA) Answe r Date Recorded How hard is it for you to pa y for the very basics like food, housing, medical care, and heating? Not very hard 02/02/2022 PHQ-2 Answer Date Recorded PHQ-2 Score 1 01/28/2022 [facility] [...] the money to buy more. Never true 02/03/20 22 Within the past 12 months, t he food you bought just didn't last and you didn't have money to get more. Never true 02/02/2022 PRAPARE - Transportation Answer Date Re corded In the past 12 months, has l ack of transportation kept you from medical appointments or from getting medications? No 01/13 In the past 12 months, has l ack of transportation kept you from meetings, work, or from getting things needed for daily living? No 02/02/2022 Housing Stability Vital Sign Answer Rafiq e Recorded In the last 12 months, was t here a time when you were not able to pay the mortgage or rent on time? No 02/02/2022 Number of Places Lived in the Last Year Not on f ile 02/02/2022 In the last 12 months, was t here a time when you did not have a steady place to sleep or slept in a detention (including now)? No 02/02/2022 Sex and Gender Information Value Date Recorded Sex Assigned at Not on file Legal 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 TANK HOUSE SUPERVISOR Gender Identity Not on file Sexual Orientation Not on file Occupation Industry Job Start Date Job End Date Not on file Not on file Not on file Not on file COVID-19 Exposure Response Date Recorded In the last 10 days, have yo u been in contact with someone who was confirmed or suspected to have Coronavirus/COVID-19? No / Unsure 01/29/2022 2:12 PM TANK HOUSE SUPERVISOR documented as of this encounter Plan of Treatment Upcoming Encounters Date Type Department Care Team (Late st Contact Info) Description 02/01/2024 3:00 PM TANK HOUSE SUPERVISOR Office Visit [facility] [address] [place] [phone] Manuel Ahn, [address] [place] [address] 02/02/2024 1:30 PM TANK HOUSE SUPERVISOR Therapy Visit [facility] [address] [facility] [address] [place] [phone] Alicja Roldan, OT [address] [place], [place] 4[address] 02/05/2024 8:00 PM TANK HOUSE SUPERVISOR Therapy Visit [facility] [place] [address] [place] [address] [address] [place] [phone] 02/13/2024 4:30 PM TANK HOUSE SUPERVISOR Oncology Visit [facility] [address] [place] [phone] Marian Agustin, MERCHANDISE DISPLAYER ASPHALT HEATER TENDER [address] [facility] [address] [place], [place] [address] 03/01/2024 7:00 AM TANK HOUSE SUPERVISOR Office Visit [facility] [address] [place] [address] Estella Hassan, [facility] [address] [place] [address] 03/23/2024 2:00 PM TANK HOUSE SUPERVISOR Office Visit [facility] [address] [place] [address] [place] [address] Lizet Mann PA-C 7[address] [place] [address] 03/29/2024 3:30 PM TANK HOUSE SUPERVISOR Office Visit [facility] [address] [facility] [address] [place] [address] Hakeem Chacko MBBS [address] [place] [address] 05/03/2024 3:00 PM TANK HOUSE SUPERVISOR Office Visit [facility] [address] [place] [phone] Gaurav Valenzuela, MERCHANDISE DISPLAYER [facility] [address] [place] [address] 05/22/2024 10:30 AM CDT Office Visit [address] [phone] Estella Hassan, [facility] [address] [place] [address] 05/22/2024 11:30 AM CDT Office Visit [address] [address] Va Glez MD [address] [place] [address] [id number] documented as of this encounter Visit Diagnoses Not on filedocumented in this encounter Additional Health Concerns Infection Onset Date Last Indicated Resolved Time Influenza 01/25/2022 01/25/2022 02/01/2022 11:4 1 PM TANK HOUSE SUPERVISOR Rule Out COVID-19 07/29/2022 07/29/2022 07/31/2022 11:17 AM CDT Rule Out COVID-19 03/23/2023 03/23/2023 03/23/2023 6:30 PM TANK HOUSE SUPERVISOR COVID-19 03/23/2023 03/23/2023 04/13/2023 11:4 0 PM TANK HOUSE SUPERVISOR Rule Out COVID-19 06/05/2023 06/05/2023 06/05/2023 5:53 PM CDT Rule Out COVID-19 11/06/2023 11/06/2023 11/06/2023 11:05 PM CDT Rule Out COVID-19 11/20/2023 11/20/2023 11/20/2023 6:43 PM CDT Rule Out COVID-19 12/27/2023 12/27/2023 12/29/2023 1:37 PM CDT Assessment Noted Time PHQ-9 Depression Total Score: 4 01/29/20 22 3:29 PM TANK HOUSE SUPERVISOR documented as of this encounter Care Teams Commercial Producer Relationship Specialty [place] [address] [place] [address] PCP - General Family Practice 07/11/14 [place] [address] [place] [address] Assigned PCP 12/16/11 Kerry Bernal, INOCENCIO Personal Advocate & Liaison (PAL) 01/08/19 07/10/23 Christy Campuzano PA-C [address] [place] [address] Referring Physician Family Medicine 04/22/20 Hans Cannon MD [address] [place] [address] Resident Pulmonary Disease 04/22/20 Burt Jovel MD [address] [place] [address] Internal Medicine 05/08/20 12/13/23 Estella Hassan, [facility] [address] [place] [address] Pharmacist Pharmacist 05/26/20 Elaina Moreno MD [address] [place] [address] Assigned Surgical Provider 05/18/20 11/19/22 Elaina Moreno MD [address] [place] [address] 255025 Cardiovascular & Thoracic Surgery 08/06/20 Kelsi Hassan MD [address] [place] [address] [address] [place], [place] [address] Assigned Pulmonology Provider 06/28/21 02/05/22 John Webb MD [address] 739795 Cardiovascular Disease 08/25/21 John Webb MD [address] 579835 Cardiovascular Disease 08/25/21 Nav Hughes MD [address] [place] [address] Assigned Heart and Vascular Provider 10/31/21 09/03/23 Cassandra Mendoza MD ORTHOPAEDIC SURGERY [address] [address] Assigned Musculoskeletal Provider 10/31/21 08/13/22 Estella Hassan, [facility] [address] [place] [address] Assigned MTM Pharmacist 12/09/21 Mitra Kendall, [facility] Lead Ssds Mk 2 Advanced Operator Primary Care - CC 01/26/2210/28 Lindsay Carey OD [address] [place] [address] Ophthalmology 01/29/22 Ravi Brownlee MD [address] [place] [address] [address] [place] [address] Assigned Pulmonology Provider 02/06/22 09/03/23 Arabella Fishman MA Financial Resource Worker 02/22/22 02/23/22 Richard Kam MD 500 [place] [address] Assigned Musculoskeletal Provider 08/14/22 Marisol Patel, [facility] [address] [place] [address] Pharmacist Pharmacist 11/22/22 01/09/23 [place] [address] BC PENA, [address] [address] Assigned Neuroscience Provider 01/01/23 Rosemarie Mcdowell, RN Capsule Machine Operator Diabetes Education 03/17/23 Ravi Brownlee MD [address] [place] [address] 338395 Assigned Heart and Vascular Provider 09/04/23 01/03/24 Mitra Kendall, [facility] Lead Ssds Mk 2 Advanced Operator Primary Care - CC 12/12/23 Lizet Mann PA-C [address] [place] [address] 308445 Assigned Cancer Care Provider 01/04/24 Ravi Brownlee MD [address] [place] [address] Assigned Pulmonology Provider 01/04/24 Nav Hughes MD [address] [facility] [place] [address] Assigned Heart and Vascular Provider 01/04/24 Manuel Ahn OD [address] [facility] [place] [address] Trail Construction Worker 01/05/24 Arabella Fishman MA Financial Resource Worker 01/06/24 Thalia Charles [facility] Pharmacist Pharmacy 01/26/24 documented as of this encounter
--- OUTSIDE RECORDS SUMMARY | 2024-01-31 20:08 | XMS_ITS | Encounter Summary ---
Author Organization [place] Address [address] [place] [address] Care Team Providers Care Before And After School Daycare Worker Name Role Phone Va Glez MD Primary Care Provider Va Glez MD Unavailable Kerry Bernal RN Unavailable [phone] Christy Campuzano PA-C Unavailable [phone] Hans Cannon MD Unavailable Burt Jovel MD Unavailable Estella Hassan [facility] Unavailable [phone] Josh Cordero MD, Madhuri Unavailable [phone] Josh Cordero MD, Elaina Unavailable [phone] Kelsi Hassan MD Unavailable [phone] John Webb MD Unavailable [phone] John Webb MD Unavailable Nav Hughes MD Unavailable [phone] Cassandra Mendoza MD Unavailable Estella Hassan [facility] Unavailable [phone] Mitra Kendall [facility] Unavailable Lindsay Carey OD Unavailable Ravi Brownlee MD Unavailable [phone] Arabella Fishman MA Unavailable [phone] Richard Kam MD Unavailable Marisol Patel Molly Jacques [facility] Unavailable Gaby Vila DO Unavailable [phone] Rosemarie Mcdowell RN Unavailable [phone] Ravi Brownlee MD Unavailable Mitra Kendall [facility] [employer] Unavailable Lizet Mann PA-C Unavailable [phone] Ravi Brownlee MD Unavailable [phone] Nav Hughes MD Unavailable [phone] Manuel Ahn OD Unavailable Arabella Fishman MA Unavailable [phone] Thalia Charles [facility] Unavailable Unavailable Reason for Visit * Reason Onset Date Comments Call Back 01/26/2022 APPT MICHAEL Encounter Details Date Type Department Care Team (Late st Contact Info) Description 01/26/2022 Telephone [facility] [place] [id number] [place] [address] Kelsi Hassan MD [address] [place] [address] 284 [place] [address] Call Back (APPT MIHCAEL) Social History Tobacco Use Types Packs/Day Years [...] and Family Not on file 05/31/2019 Attends Worship Services Not on file 05/30 Active Member [...] all 05/31/2019 PHQ-2 Answer Date Recorded PHQ-2 Score 1 01/28/2022 [facility] - [...] on file Legal 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 CYBER LEGAL ADVISOR Gender Identity Not on file Sexual Orientation Not on file Occupation Industry Job Start Date Job End Date Not on file Not on file Not on file Not on file COVID-19 Exposure Response Date Recorded In the last 10 days, have yo u been in contact with someone who was confirmed or suspected to have Coronavirus/COVID-19? No / Unsure 01/29/2022 2:12 PM CYBER LEGAL ADVISOR documented as of this encounter Miscellaneous Notes * Telephone Encounter - Lluvia Rhodes - 01/26/2022 10:13 AM CST [facility] Call Center Phone Message May a detailed message be left on voicemail: yes Reason for Call: Other: Per pt needs to be seen michael due to being put in the ED and needing a follow up for pt asthma. Per pt would like something michael at [facility] location . Please call pt back , thank you! Action Taken: Message routed to: [facility] PULM Travel Screening: Not Applicable R LEGAL ADVISOR documented in this encounter Plan of Treatment Upcoming Encounters Date Type Department Care Team (Late st Contact Info) Description 02/01/2024 3:00 PM CYBER LEGAL ADVISOR Office Visit [facility] [address] [place] [phone] Manuel Ahn, [address] [place] [address] 02/02/2024 1:30 PM CYBER LEGAL ADVISOR Therapy Visit [facility] [address] [facility] [address] [place] [phone] Alicja Roldan, OT [address] [place], [place] [address] 02/05/2024 8:00 PM CYBER LEGAL ADVISOR Therapy Visit [facility] [address] [phone] 02/13/2024 4:30 PM CYBER LEGAL ADVISOR Oncology Visit [facility] [address] [place] [address] Marian Agustin, [facility] [address] [facility] 207 [place] [address] 03/01/2024 7:00 AM CYBER LEGAL ADVISOR Office Visit [facility] [address] [place] [phone] Estella Hassan, [place] [address] [place] [address] 03/23/2024 2:00 PM CYBER LEGAL ADVISOR Office Visit [facility] [address] [place] [address] Lizet Mann PA-C [address] [place] [address] 03/29/2024 3:30 PM CYBER LEGAL ADVISOR Office Visit [facility] 2945 [facility] 200 [place] [phone] Hakeem Chacko MBBS [address] [place] [address] 05/03/2024 3:00 PM CYBER LEGAL ADVISOR Office Visit [address] [phone] Gaurav Valenzuela, STENCIL CUTTER [facility] 606 [facility] [address] [address] 05/22/2024 10:30 AM CDT Office Visit [place] [address] [place] [phone] Estella Hassan, [facility] [address] [place] [address] 05/22/2024 11:30 AM CDT Office Visit [facility] [address] [place] [address] [place] [address] [place] [address] documented as of this encounter Visit Diagnoses Not on filedocumented in this encounter Additional Health Concerns Infection Onset Date Last Indicated Resolved Time Influenza 01/25/2022 01/25/2022 02/01/2022 11:4 1 PM CYBER LEGAL ADVISOR Rule Out COVID-19 07/29/2022 07/29/2022 07/31/2022 11:17 AM CDT Rule Out COVID-19 03/23/2023 03/23/2023 03/23/2023 6:30 PM CYBER LEGAL ADVISOR COVID-19 03/23/2023 03/23/2023 04/13/2023 11:4 0 PM CYBER LEGAL ADVISOR Rule Out COVID-19 06/05/2023 06/05/2023 06/05/2023 5:53 PM CDT Rule Out COVID-19 11/06/2023 11/06/2023 11/06/2023 11:05 PM CDT Rule Out COVID-19 11/20/2023 11/20/2023 11/20/2023 6:43 PM CDT Rule Out COVID-19 12/27/2023 12/27/2023 12/29/2023 1:37 PM CDT Assessment Noted Time PHQ-9 Depression Total Score: 6 08/05/19 3:46 PM CDT documented as of this encounter Care Teams Before And After School Daycare Worker Relationship Specialty [place] [address] [place] [address] PCP - General Family Practice 07/11/14 [place] [address] [place] [address] Assigned PCP 12/16/11 Kerry Bernal RN Personal Advocate & Liaison (PAL) 01/08/19 07/10/23 Christy Campuzano PA-C [address] [place] [address] Referring Physician Family Medicine 04/22/20 Hans Cannon MD [address] [place] [address] Resident Pulmonary Disease 04/22/20 Burt Jovel MD [address] [place] [address] Internal Medicine 05/08/20 12/13/23 [facility] [address] [place] [address] Pharmacist Pharmacist 05/26/20 Elaina Moreno MD [address] [place] [address] Assigned Surgical Provider 05/18/20 11/19/22 Elaina Moreno MD [address] [place] [address] Cardiovascular & Thoracic Surgery 08/06/20 Kelsi Hassan MD [address] [place] [address] 435595 Assigned Pulmonology Provider 06/28/21 02/05/22 John Webb MD [address] [address] Cardiovascular Disease 08/25/21 John Webb MD [address] [address] Cardiovascular Disease 08/25/21 Nav Hughes MD [address] [place] [address] Assigned Heart and Vascular Provider 10/31/21 09/03/23 Cassandra Mendoza MD ORTHOPAEDIC SURGERY [facility] [address] [address] Assigned Musculoskeletal Provider 10/31/21 08/13/22 [facility] [address] [place] [address] Assigned MTM Pharmacist 12/09/21 Mitra Kendall, [facility] Lead Cyanide Case Hardener Primary Care - CC 01/26/2210/28 Lindsay Carey OD [address] [facility] [place] [address] Ophthalmology 01/29/22 Ravi Brownlee MD [address] [place] [address] 972495 Assigned Pulmonology Provider 02/06/22 09/03/23 Arabella Fishman MA Financial Resource Worker 02/22/22 02/23/22 Richard Kam MD [address] [place] [address] Assigned Musculoskeletal Provider 08/14/22 Marisol Patel [facility] [address] [place] [address] Pharmacist Pharmacist 11/22/22 01/09/23 [place] [address] [address] Assigned Neuroscience Provider 01/01/23 Rosemarie Mcdowell, RN It Security Consulting Director Diabetes Education 03/17/23 Ravi Brownlee MD [address] [place] [address] Assigned Heart and Vascular Provider 09/04/23 01/03/24 Mitra Kendall, [facility] Lead Cyanide Case Hardener Primary Care - CC 12/12/23 Lizet Mann PA-C [address] [place] [address] Assigned Cancer Care Provider 01/04/24 Ravi Brownlee MD [address] [place] [address] Assigned Pulmonology Provider 01/04/24 Nav Hughes MD [address] [facility] [place] [place] [address] Assigned Heart and Vascular Provider 01/04/24 Manuel Ahn OD [address] [facility] [place] [address] Box Sealing Machine Catcher 01/05/24 Arabella Fishman MA Financial Resource Worker 01/06/24 Thalia Charles [facility] Pharmacist Pharmacy 01/26/24 documented as of this encounter
--- OUTSIDE RECORDS SUMMARY | 2024-01-31 20:08 | XMS_ITS | Encounter Summary ---
Author Organization [place] Address [address] [place] [address] Care Team Providers Care Sql Data Analyst Name Role Phone Va Glez MD Primary Care Provider Va Glez MD Unavailable Kerry Bernal RN Unavailable [phone] Ravi Barillas DPM Unavailable [phone] Christy Campuzano PA-C Unavailable [phone] Hans Cannon MD Unavailable Mitra Kendall FIRER LOCOMOTIVE Unavailable Burt Jovel MD Unavailable Estella Hassan [facility] Unavailable [phone] Reji Chavez MD Unavailable Josh Cordero MD, Madhuri Unavailable [phone] Josh Cordero MD, Madhuri Unavailable [phone] Kelsi Hassan MD Unavailable [phone] John Webb MD Unavailable John Webb MD Unavailable [phone] Estella Hassan [facility] Unavailable Nav Hughes MD Unavailable [phone] Cassandra Mendoza MD Unavailable [phone] Estella Hassan H Unavailable [phone] Mitra Kendall FIRER LOCOMOTIVE Unavailable Aurelio Lindsay Kenzie OD Unavailable Ravi Brownlee MD Unavailable [phone] Arabella Fishman MA Unavailable [phone] Richard Kam MD Unavailable Marisol Patel [facility] Unavailable [phone] Gaby Vila DO Unavailable Rosemarie Mcdowell RN Unavailable Ravi Brownlee MD Unavailable Mitra Kendall FIRER LOCOMOTIVE Unavailable [phone] Lizet Mann PA-C Unavailable Ravi Brownlee MD Unavailable Nav Hughes MD Unavailable [phone] Manuel Ahn OD Unavailable Arabella Fishman MA Unavailable [phone] Thalia Charles [facility] Unavailable Unavailable Encounter Details Date Type Department Care Team (Late st Contact Info) Description 10/05/2020 [facility] [address] [place] [phone] Elaina Moreno MD [address] [place] [address] Social History Tobacco Use Types Packs/Day [...] and Family Not on file 05/31/2019 Attends [employer]astaf[employer] Services Not on file 05/30 Active Member [...] more points; Administer PHQ-9 if positive 1 08/06/2020 [facility] of Occupat ional Health - Occupational [...] on file Legal 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 ESCALATOR ATTENDANT Gender Identity Not on file Sexual Orientation Not on file Occupation Industry Job Start Date Job End Date Not on file Not on file Not on file Not on file COVID-19 Exposure Response Date Recorded In the last month, have you been in contact with someone who was confirmed or suspected to have Coronavirus / COVID-19? No / Unsure 09/11/2020 4:29 PM CDT documented as of this encounter Plan of Treatment Upcoming Encounters Date Type Department Care Team (Late st Contact Info) Description 02/01/2024 3:00 PM ESCALATOR ATTENDANT Office Visit [facility] 6[address] [place] [address] [facility] 6341 [place] [address] 02/02/2024 1:30 PM ESCALATOR ATTENDANT Therapy Visit [facility] [address] [facility] 300 [place] [phone] Alicja Roldan OT 909 [place] [address] 02/05/2024 8:00 PM ESCALATOR ATTENDANT Therapy Visit [facility] [place] [address] [place] [address] 103 [place] [phone] 02/13/2024 4:30 PM ESCALATOR ATTENDANT Oncology Visit [facility] 909 [place] [phone] Marian gAustin APRN [facility] [address] [facility] 207 [place] [address] 03/01/2024 7:00 AM ESCALATOR ATTENDANT Office Visit [address] [phone] Estella Hassan, [facility] 3033 [place] [address] 03/23/2024 2:00 PM ESCALATOR ATTENDANT Office Visit [facility] [address] [place] [address] [place] [address] Lizet Mann PA-C [address] [place] [address] 03/29/2024 3:30 PM ESCALATOR ATTENDANT Office Visit [facility] 2945 [facility] 200 [place] [phone] Hakeem Chacko MBBS 2945 [place] [address] 05/03/2024 3:00 PM ESCALATOR ATTENDANT Office Visit [facility] [address] [place] [phone] Gaurav Valenzuela, RN RECRUITMENT [address] [address]28654 05/22/2024 10:30 AM CDT Office Visit [address] [phone] Estella Hassan, [place] [address]15[address] [place] [address] 05/22/2024 11:30 AM CDT Office Visit [address] [phone] Va Glez MD [address] [place] [address] [phone] documented as of this encounter Visit Diagnoses Not on filedocumented in this encounter Additional Health Concerns Infection Onset Date Last Indicated Resolved Time Rule Out COVID-19 06/22/2021 06/22/2021 06/23/2021 8:58 PM CDT Rule Out COVID-19 01/22/2022 01/22/2022 01/24/2022 1:05 PM ESCALATOR ATTENDANT Rule Out COVID-19 01/25/2022 01/25/2022 01/25/2022 5:21 AM ESCALATOR ATTENDANT Influenza 01/25/2022 01/25/2022 02/01/2022 11:4 1 PM ESCALATOR ATTENDANT Rule Out COVID-19 07/29/2022 07/29/2022 07/31/2022 11:17 AM CDT Rule Out COVID-19 03/23/2023 03/23/2023 03/23/2023 6:30 PM ESCALATOR ATTENDANT COVID-19 03/23/2023 03/23/2023 04/13/2023 11:4 0 PM ESCALATOR ATTENDANT Rule Out COVID-19 06/05/2023 06/05/2023 06/05/2023 5:53 PM CDT Rule Out COVID-19 11/06/2023 11/06/2023 11/06/2023 11:05 PM CDT Rule Out COVID-19 11/20/2023 11/20/2023 11/20/2023 6:43 PM CDT Rule Out COVID-19 12/27/2023 12/27/2023 12/29/2023 1:37 PM CDT Assessment Noted Time PHQ-9 Depression Total Score: 7 08/08/19 21 7:03 AM CDT documented as of this encounter Care Teams Sql Data Analyst Relationship Specialty [place] [address] [place] [address] PCP - General Family Practice 07/11/14 [place] [address] [place] [address] Assigned PCP 12/16/11 Kerry Bernal RN Personal Advocate & Liaison (PAL) 01/08/19 07/10/23 Ravi Barillas DPM [address] [facility] [address] [place] [address] Assigned Musculoskeletal Provider 03/23/20 10/30/21 Christy Campuzano PA-C [address] [place] [address] 710752 Referring Physician Family Medicine 04/22/20 Hans Cannon MD [address] [place] [address] 627212 Resident Pulmonary Disease 04/22/20 Mitra Kendall, [facility] Lead Discharge Planner Primary Care - CC 01/08/1901/12 Burt Jovel MD Internal Medicine 05/08/20 12/13/23 Estella Hassan, [facility] [address] [place], [place] 081316 Pharmacist Pharmacist 05/26/20 Reji Chavez MD [address] [place] [phone] Assigned Heart and Vascular Provider 05/18/20 10/30/21 Elaina Moreno MD [address] [place] [address] [phone] Assigned Surgical Provider 05/18/20 11/19/22 Elaina Moreno MD 909 [place] [address] Cardiovascular & Thoracic Surgery 08/06/20 Kelsi Hassan MD 420 [facility] 284 [place] [address] Assigned Pulmonology Provider 06/28/21 02/05/22 John Webb MD [address] 122415 Cardiovascular Disease 08/25/21 John Webb MD [address] 072205 Cardiovascular Disease 08/25/21 Estella Hassan, [facility] [address] [place] [address] Assigned MTM Pharmacist 09/05/21 Nav Hughes MD [address] [place] 807875 Assigned Heart and Vascular Provider 10/31/21 09/03/23 Cassandra Mendoza MD ORTHOPAEDIC SURGERY [address] [address] Assigned Musculoskeletal Provider 10/31/21 08/13/22 Estella Hassan, [facility] [address] [place] [address] Assigned MTM Pharmacist 12/09/21 Mitra Kendall, FIRER LOCOMOTIVE Lead Discharge Planner Primary Care - CC 01/26/2210/28 Lindsay Carey OD [address] [facility] [place] [place] [address] Ophthalmology 01/29/22 Ravi Brownlee MD [address] [place] [address] 725755 Assigned Pulmonology Provider 02/06/22 09/03/23 Arabella Fishman MA Financial Resource Worker 02/22/22 02/23/22 Richard Kam MD [address] [place] [address] 039225 Assigned Musculoskeletal Provider 08/14/22 [facility] [address] [facility] [address] [place] [phone] Pharmacist Pharmacist 11/22/22 01/09/23 [place] [address] 124027 Assigned Neuroscience Provider 01/01/23 Rosemarie Mcdowell, RN Legal Billing Coordinator Diabetes Education 03/17/23 Ravi Brownlee MD [address] [place] [address] [phone] Assigned Heart and Vascular Provider 09/04/23 01/03/24 Mitra Kendall LSW Lead Discharge Planner Primary Care - CC 12/12/23 Lizet Mann PA-C 717 [place], [place] 526945 Assigned Cancer Care Provider 01/04/24 Ravi Brownlee MD 420 [facility] 276 [place], [place] [phone] Assigned Pulmonology Provider 01/04/24 Nav Hughes MD [address] [place] 307795 Assigned Heart and Vascular Provider 01/04/24 Manuel Ahn OD 6341 [facility] [place] 053572 Window Air Conditioner Installer 01/05/24 Arabella Fishman MA Financial Resource Worker 01/06/24 Thalia Charles [facility] Pharmacist Pharmacy 01/26/24 documented as of this encounter
--- OUTSIDE RECORDS SUMMARY | 2024-01-31 20:08 | XMS_ITS | Encounter Summary ---
Author Organization [place] Address [address] [place] [address] Care Team Providers Care Survey Workers Supervisor Name Role Phone Va Glez MD Primary Care Provider Va Glez MD Unavailable Kerry Bernal RN Unavailable [phone] Ravi Barillas DPM Unavailable [phone] Christy Campuzano PA-C Unavailable Hans Cannon MD Unavailable [phone] Mitra Kendall SENIOR CLINICAL PROJECT MANAGER Unavailable [phone] Burt Jovel MD Unavailable [phone] Estella Hassan [facility] Unavailable Reji Chavez MD Unavailable Josh Cordero MD, Madhuri Unavailable [phone] Josh Cordero MD, Madhuri Unavailable [phone] Kelsi Hassan MD Unavailable [phone] John Webb MD Unavailable John Webb MD Unavailable [phone] Estella Hassan [facility] Unavailable [phone] Nav Hughes MD Unavailable [phone] Cassandra Mendoza MD Unavailable Estella Hassan H Unavailable Mitra Kendall SENIOR CLINICAL PROJECT MANAGER Unavailable Aurelio Lindsay Kenzie OD Unavailable Ravi Brownlee MD Unavailable Arabella Fishman MA Unavailable Richard Kam MD Unavailable Marisol Patel [facility] Unavailable [phone] Gaby Vila DO Unavailable Rosemarie Mcdowell RN Unavailable [phone] Ravi Brownlee MD Unavailable Mitra Kendall SENIOR CLINICAL PROJECT MANAGER Unavailable Lizet Mann PA-C Unavailable [phone] Ravi Brownlee MD Unavailable [phone] Nav Hughes MD Unavailable [phone] Manuel Ahn OD Unavailable Arabella Fishman MA Unavailable [phone] Thalia Charles [facility] Unavailable Unavailable Encounter Details Date Type Department Care Team (Late st Contact Info) Description 08/26/2021 [facility] [address] [phone] [facility] Social History Tobacco Use Types Packs/Day Years [...] and Family Not on file 05/31/2019 Attends [employer] Services Not on file 05/30 Active Member [...] points; Administer PHQ-9 if positive 1 08/04/2021 [facility] of Occupat ional Health - Occupational Stress [...] on file Legal 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 TRANSPORTATION INSPECTOR Gender Identity Not on file Sexual Orientation Not on file Occupation Industry Job Start Date Job End Date Not on file Not on file Not on file Not on file COVID-19 Exposure Response Date Recorded In the last 10 days, have yo u been in contact with someone who was confirmed or suspected to have Coronavirus/COVID-19? No / Unsure 08/24/2021 4:02 PM CDT documented as of this encounter Plan of Treatment Upcoming Encounters Date Type Department Care Team (Late st Contact Info) Description 02/01/2024 3:00 PM TRANSPORTATION INSPECTOR Office Visit [facility] 6341 [place] [phone] Manuel Ahn, [address]341 [place] [address] 02/02/2024 1:30 PM TRANSPORTATION INSPECTOR Therapy Visit [facility] [address] [facility] [address] [place] [phone] Alicja Roldan, OT 909 [place], [place] 637845 02/05/2024 8:00 PM TRANSPORTATION INSPECTOR Therapy Visit [facility] [place] 6363 [facility] 103 [place] [phone] 02/13/2024 4:30 PM TRANSPORTATION INSPECTOR Oncology Visit [facility] 909 [place] [phone] Marian Agustin, SALVAGE LABORER EVENT PLANNING MANAGER [address] [facility] 207 [place], [place] 680915 03/01/2024 7:00 AM TRANSPORTATION INSPECTOR Office Visit [facility] [address] [place] [phone] Estella Hassan, [facility] 3033 [place], [place] 591376 03/23/2024 2:00 PM TRANSPORTATION INSPECTOR Office Visit [facility] [address] [place] [phone] Lizet aMnn PA-C 717 [place] [address] 03/29/2024 3:30 PM TRANSPORTATION INSPECTOR Office Visit [facility] 2945 [facility] 200 [place] [address] Hakeem Chacko MBBS 2945 [place] [address] 05/03/2024 3:00 PM TRANSPORTATION INSPECTOR Office Visit [facility] [address] [place] [phone] Gaurav Valenzuela, SALVAGE LABORER [address] [address] 05/22/2024 10:30 AM CDT Office Visit [address] [phone] Estella Hassan, [facility] 3033 [place] [address] 05/22/2024 11:30 AM CDT Office Visit [address] [phone] Va Glez MD [address] [place] [address] [phone] documented as of this encounter Visit Diagnoses Not on filedocumented in this encounter Additional Health Concerns Infection Onset Date Last Indicated Resolved Time Rule Out COVID-19 01/22/2022 01/22/2022 01/24/2022 1:05 PM TRANSPORTATION INSPECTOR Rule Out COVID-19 01/25/2022 01/25/2022 01/25/2022 5:21 AM TRANSPORTATION INSPECTOR Influenza 01/25/2022 01/25/2022 02/01/2022 11:4 1 PM TRANSPORTATION INSPECTOR Rule Out COVID-19 07/29/2022 07/29/2022 07/31/2022 11:17 AM CDT Rule Out COVID-19 03/23/2023 03/23/2023 03/23/2023 6:30 PM TRANSPORTATION INSPECTOR COVID-19 03/23/2023 03/23/2023 04/13/2023 11:4 0 PM TRANSPORTATION INSPECTOR Rule Out COVID-19 06/05/2023 06/05/2023 06/05/2023 5:53 PM CDT Rule Out COVID-19 11/06/2023 11/06/2023 11/06/2023 11:05 PM CDT Rule Out COVID-19 11/20/2023 11/20/2023 11/20/2023 6:43 PM CDT Rule Out COVID-19 12/27/2023 12/27/2023 12/29/2023 1:37 PM CDT Assessment Noted Time PHQ-9 Depression Total Score: 6 08/05/19 3:46 PM CDT documented as of this encounter Care Teams Survey Workers Supervisor Relationship Specialty [place] [address] [place] [address] PCP - General Family Practice 07/11/14 [place] [address] [place] [address] Assigned PCP 12/16/11 Kerry Bernal RN Personal Advocate & Liaison (PAL) 01/08/19 07/10/23 Ravi Barillas DPM [address] [address] Assigned Musculoskeletal Provider 03/23/20 10/30/21 Christy Campuzano PA-C [address] [place] [address] Referring Physician Family Medicine 04/22/20 Hans Cannon MD [address] [place] [address] Resident Pulmonary Disease 04/22/20 Mitra Kendall, [facility] Lead Screen Printing Machine Loader Unloader Primary Care - CC 01/08/1901/12 Burt Jovel MD Internal Medicine 05/08/20 12/13/23 Estella Hassan, [facility] [address] [place], [place] [address]26[address] Pharmacist Pharmacist 05/26/20 Reji Chavez MD [address] [place] [phone] Assigned Heart and Vascular Provider 05/18/20 10/30/21 Elaina Moreno MD [address] [place] [address] 763575 Assigned Surgical Provider 05/18/20 11/19/22 Elaina Moreno MD [address] [place] [address] Cardiovascular & Thoracic Surgery 08/06/20 Kelsi Hassan MD [address] [place] [address] 284 [place] [address] Assigned Pulmonology Provider 06/28/21 02/05/22 John Webb MD [address] 105735 Cardiovascular Disease 08/25/21 John Webb MD [address] 782385 Cardiovascular Disease 08/25/21 Estella Hassan, [facility] [address] [place] [address] Assigned MTM Pharmacist 09/05/21 Nav Hughes MD [address] [place] [address] Assigned Heart and Vascular Provider 10/31/21 09/03/23 Cassandra Mendoza MD ORTHOPAEDIC SURGERY [facility] [address] [address] Assigned Musculoskeletal Provider 10/31/21 08/13/22 Estella Hassan, [facility] [address] [place] [address] Assigned MTM Pharmacist 12/09/21 Mitra Kendall, SENIOR CLINICAL PROJECT MANAGER Lead Screen Printing Machine Loader Unloader Primary Care - CC 01/26/2210/28 Lindsay Carey OD [address] [facility] [place] [address] Ophthalmology 01/29/22 Ravi Brownlee MD [address] [place] [address] Assigned Pulmonology Provider 02/06/22 09/03/23 Arabella Fishman MA Financial Resource Worker 02/22/22 02/23/22 Richard Kam MD [address] [place] [address] [phone] Assigned Musculoskeletal Provider 08/14/22 [facility] [address] [facility] [address] [place] [id number] Pharmacist Pharmacist 11/22/22 01/09/23 [place] [address] 579107 Assigned Neuroscience Provider 01/01/23 Rosemarie Mcdowell, RN Mall Manager Diabetes Education 03/17/23 Ravi Brownlee MD [address] [place] [address] Assigned Heart and Vascular Provider 09/04/23 01/03/24 Mitra Kendall, SENIOR CLINICAL PROJECT MANAGER Lead Screen Printing Machine Loader Unloader Primary Care - CC 12/12/23 Lizet Mann PAUniqueC 717 [place], [place] 868105 Assigned Cancer Care Provider 01/04/24 Ravi Brownlee MD 420 [facility] 276 [place], [place] 0[address]95 Assigned Pulmonology Provider 01/04/24 Nav Hughes MD [address] [place] [id number] Assigned Heart and Vascular Provider 01/04/24 Manuel Ahn OD 6341 [facility] [address] 817032 Washroom Attendant 01/05/24 Arabella Fishman MA Financial Resource Worker 01/06/24 Thalia Charles [facility] Pharmacist Pharmacy 01/26/24 documented as of this encounter
--- OUTSIDE RECORDS SUMMARY | 2024-01-31 20:08 | XMS_ITS | Encounter Summary ---
Author Organization [facility] Address [address] [place] [address] Care Team Providers Care Sales Applications Engineer Name Role Phone Va Glez MD Primary Care Provider Va Glez MD Unavailable Christy Campuzano PA-C Unavailable [phone] Hans Cannon MD Unavailable [phone] Burt Jovel MD Unavailable Estella Hassan [facility] Unavailable Josh Cordero MD, Madhuri Unavailable [phone] John Webb MD Unavailable [phone] John Webb MD Unavailable Estella Hassan [facility] Unavailable Lindsay Carey OD Unavailable Richard Kam MD Unavailable Gaby Vila DO Unavailable Rosemarie Mcdowell RN Unavailable [phone] Ravi Brownlee MD Unavailable Reason for Visit * Occupational Therapy (Routine: Next available opening) - Pending Review Specialty Diagnoses / Procedures Referred By Mireille gonzalez Referred To Contact Diagnoses Radicular pain in right arm Right wrist pain Whitney Hood PA-C [address] [place] [address] Phone: tel: fax: Referral ID Status Reason Start Date Expiration Date V isits Requested Visits Authorized [id number] Pending Review 04/22/2023 04/21/2024 1 1 Encounter Details Date Type Department Care Team (Latest Contact Info) Description 10/14/2023 2:00 PM CDT Therapy Visit [facility] Specialty [facility] [address] [facility] [address] [place], [place] [address] Alicja Roldan, OT [address] [place] [address] Acute on chronic right wrist pain (Primary Dx) Social History Tobacco Use [...] often do you attend chur ch or episcopal services? More than 4 times [...] Answer Date Recorded PHQ-2 Score 1 10/13/2023 [facility] - Occupational Stress Questionnaire Answer Date [...] on file Legal 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 NUCLEAR MEDICINE TECHNOLOGIST Gender Identity Not on file Sexual Orientation Not on file Occupation Industry Job Start Date Job End Date Not on file Not on file Not on file Not on file documented as of this encounter Plan of Treatment Upcoming Encounters Date Type Department Care Team (Late st Contact Info) Description 02/01/2024 3:00 PM NUCLEAR MEDICINE TECHNOLOGIST Office [facility] [address] [place] [address] Manuel Ahn, OD [address] [place] [address] 02/02/2024 1:30 PM NUCLEAR MEDICINE TECHNOLOGIST Therapy Visit [facility] [address] [facility] [address] [place] [phone] Alicja Roldan, OT [address] [place] [address] 02/05/2024 8:00 PM NUCLEAR MEDICINE TECHNOLOGIST Therapy Visit [facility] [place] [address] [facility] [address] [place] [phone] 02/13/2024 4:30 PM NUCLEAR MEDICINE TECHNOLOGIST Oncology Visit [facility] 9[address] [place] [phone] Marian Agustin APRN [facility] [address] [facility] 207 [place] [address] 03/01/2024 7:00 AM NUCLEAR MEDICINE TECHNOLOGIST Office Visit [facility] [address] [place] [phone] Estella Hassan, [facility] [address] [place] [address] 03/23/2024 2:00 PM NUCLEAR MEDICINE TECHNOLOGIST Office Visit [facility] [address] [place] [phone] Lizet Mann PA-C 717 [place] [address] 03/29/2024 3:30 PM NUCLEAR MEDICINE TECHNOLOGIST Office Visit [facility] 2945 [facility] 200 [place] [address] Hakeem Chacko MBBS [address] [place] [address] 05/03/2024 3:00 PM NUCLEAR MEDICINE TECHNOLOGIST Office Visit [facility] [address] [phone] Gaurav Valenzuela, BUSINESS SOLUTIONS DIRECTOR [facility] [address] [place] [address] 05/22/2024 10:30 AM CDT Office Visit [address] [phone] Estella Hassan, [facility] [address] [place] [address] 05/22/2024 11:30 AM CDT Office Visit [facility] [address] [place] [phone] [place] [address] [place] [address] [phone] documented as of this encounter Goals Goal Patient Goal Type Associated Problems Recent Progress Patient-Stated? Author Health Maintenance Care Plan HP GENERAL PROBLEM 100%( 023 10:17 AM CDT) No Mitra Kendall, EQUIPMENT WORKER Note: Update on 05/25/22 Barriers: Currently [...] for health insurance by looking in to [employer] and talking with a FRW. Completed 3. I will look for a new job and will access resources that the [employer] offers. . Sarted new job 4. Continue [...] of this encounter Visit Diagnoses Diagnosis Acute on chronic right wrist pain- Primary Pain in joint, forearm documented in this encounter Additional Health Concerns [...] accurate information and submit it to the [facility]. 3. I will update CCC Team at [...] documented as of this encounter Care Teams Sales Applications Engineer Relationship Specialty [place] [address] [place] [address] PCP - General Family Practice 07/11/14 [place] [address] [place] [address] Assigned PCP 12/16/11 Christy Campuzano PA-C [address] [place] [address] Referring Physician Family Medicine 04/22/20 Hans Cannon MD [address] [place] [address] Resident Pulmonary Disease 04/22/20 Burt Jovel MD [address] [place] [address] 115062 Internal Medicine 05/08/20 12/13/23 Estella Hassan, [facility] [employer] [place], [place] [address] Pharmacist Pharmacist 05/26/20 Elaina Moreno MD [address] [place] [address] Cardiovascular & Thoracic Surgery 08/06/20 John Webb MD [address] [address] Cardiovascular Disease 08/25/21 John Webb MD [address] [address] Cardiovascular Disease 08/25/21 Estella Hassan, [facility] [address] [place] [address] Assigned MTM Pharmacist 12/09/21 Lindsay Carey OD [address] [place] [address] Ophthalmology 01/29/22 Richard Kam MD [address] [place], [place] 027095 Assigned Musculoskeletal Provider 08/14/22 [place] [address] [place], [address] 567037 Assigned Neuroscience Provider 01/01/23 Rosemarie Mcdowell RN Ride Attendant Diabetes Education 03/17/23 Ravi Brownlee MD [address] [place] [address] 276 [place], [place] 6465[address] Assigned Heart and Vascular Provider 09/04/23 01/03/24 documented as of this encounter
--- OUTSIDE RECORDS SUMMARY | 2024-01-31 20:08 | XMS_ITS | Encounter Summary ---
Author Organization [facility] Address [address] [place] [address] Care Team Providers Care Table Cover Folder Name Role Phone Va Glez MD Primary Care Provider Va Glez MD Unavailable Kerry Bernal RN Unavailable Christy Campuzano PA-C Unavailable Hans Cannon MD Unavailable Burt Jovel MD Unavailable [phone] Estella Hassan [facility] Unavailable [phone] Josh Cordero MD, Madhuri Unavailable [phone] Josh Cordero MD, Elaina Unavailable [phone] Kelsi Hassan MD Unavailable [phone] John Webb MD Unavailable [phone] John Webb MD Unavailable [phone] Nav Hughes MD Unavailable [phone] Cassandra Mendoza MD Unavailable Estella Hassan [facility] Unavailable [phone] Mitra Kendall [employer] Unavailable Lindsay Carey OD Unavailable Ravi Brownlee MD Unavailable [phone] Arabella Fishman MA Unavailable [phone] Richard Kam MD Unavailable Marisol Patel [facility] Unavailable Gaby Vila DO Unavailable [phone] Rosemarie Mcdowell RN Unavailable [phone] Ravi Brownlee MD Unavailable Mitra Kendall [employer] Unavailable Lizet Mann PA-C Unavailable Ravi Brownlee MD Unavailable [phone] Nav Hughes MD Unavailable [phone] Manuel Ahn OD Unavailable Arabella Fishman MA Unavailable [phone] Thalia Charles [facility] Unavailable Unavailable Encounter Details Date Type Department Care Team (Late st Contact Info) Description 01/29/2022 [facility] [address] [phone] [facility] Social History Tobacco Use Types Packs/Day Years [...] and Family Not on file 05/31/2019 Attends Islam Services Not on file 05/30 Active Member [...] Answer Date Recorded PHQ-2 Score 1 01/28/2022 [facility] - [...] place to sleep or slept in a care home (including now)? No 02/02/2022 Sex and Gender Information Value Date Recorded Sex Assigned at Not on file Legal 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 INFORMATION SYSTEMS DIRECTOR Gender Identity Not on file Sexual Orientation Not on file Occupation Industry Job Start Date Job End Date Not on file Not on file Not on file Not on file COVID-19 Exposure Response Date Recorded In the last 10 days, have yo u been in contact with someone who was confirmed or suspected to have Coronavirus/COVID-19? No / Unsure 01/29/2022 2:12 PM INFORMATION SYSTEMS DIRECTOR documented as of this encounter Plan of Treatment Upcoming Encounters Date Type Department Care Team (Late st Contact Info) Description 02/01/2024 3:00 PM INFORMATION SYSTEMS DIRECTOR Office Visit [facility] 6[address] [place] [phone] Manuel Ahn, [address] [place] [address] 02/02/2024 1:30 PM INFORMATION SYSTEMS DIRECTOR Therapy Visit [facility] [address] [facility] [address] [place] [phone] Alicja Roldan, OT [address] [place], [place] [address] 02/05/2024 8:00 PM INFORMATION SYSTEMS DIRECTOR Therapy Visit [facility] [place] [address] [place] [address] 103 [place] [phone] 02/13/2024 4:30 PM INFORMATION SYSTEMS DIRECTOR Oncology Visit [facility] 9[address] [place] [phone] Mairan Agustin, SCIENTIFIC PROGRAMMER ANALYST WINDSCREEN FITTER [address] [facility] [address] [place], [place] [address] 03/01/2024 7:00 AM INFORMATION SYSTEMS DIRECTOR Office Visit [facility] [address] [place] [phone] Estella Hassan, [facility] 30[address] [place] [address] 03/23/2024 2:00 PM INFORMATION SYSTEMS DIRECTOR Office [facility] [address] [place] [address] [place] [address] Lizet Mann PA-C 717 [place] [address] 03/29/2024 3:30 PM INFORMATION SYSTEMS DIRECTOR Office Visit [facility] 2945 [facility] 200 [place] [address] Hakeem Chacko MBBS 2945 [place] [address] 05/03/2024 3:00 PM INFORMATION SYSTEMS DIRECTOR Office [facility] [address] [place] [phone] Gaurav Valenzuela, SCIENTIFIC PROGRAMMER ANALYST [facility] [address] [place] [address] 05/22/2024 10:30 AM CDT Office Visit [address] [phone] Estella Hassan, [facility] 30[address] [place] [address] 05/22/2024 11:30 AM CDT Office Visit [address] [address] Va Glez MD [address] [place] [address] [phone] documented as of this encounter Visit Diagnoses Not on filedocumented in this encounter Additional Health Concerns Infection Onset Date Last Indicated Resolved Time Influenza 01/25/2022 01/25/2022 02/01/2022 11:4 1 PM INFORMATION SYSTEMS DIRECTOR Rule Out COVID-19 07/29/2022 07/29/2022 07/31/2022 11:17 AM CDT Rule Out COVID-19 03/23/2023 03/23/2023 03/23/2023 6:30 PM INFORMATION SYSTEMS DIRECTOR COVID-19 03/23/2023 03/23/2023 04/13/2023 11:4 0 PM INFORMATION SYSTEMS DIRECTOR Rule Out COVID-19 06/05/2023 06/05/2023 06/05/2023 5:53 PM CDT Rule Out COVID-19 11/06/2023 11/06/2023 11/06/2023 11:05 PM CDT Rule Out COVID-19 11/20/2023 11/20/2023 11/20/2023 6:43 PM CDT Rule Out COVID-19 12/27/2023 12/27/2023 12/29/2023 1:37 PM CDT Assessment Noted Time PHQ-9 Depression Total Score: 4 01/29/20 22 3:29 PM INFORMATION SYSTEMS DIRECTOR documented as of this encounter Care Teams Table Cover Folder Relationship Specialty [place] [address] [place] [address] PCP - General Family Practice 07/11/14 [place] [address] [place] [address] Assigned PCP 12/16/11 Kerry Bernal, INOCENCIO Personal Advocate & Liaison (PAL) 01/08/19 07/10/23 Christy Campuzano PA-C [address] [place] [address] Referring Physician Family Medicine 04/22/20 Hans Cannon MD [address] [place] [address] Resident Pulmonary Disease 04/22/20 Burt Jovel MD [address] [place] [address] Internal Medicine 05/08/20 12/13/23 Estella Hassan, [facility] [address] [place] [address] Pharmacist Pharmacist 05/26/20 Elaina Moreno MD [address] [place] [address] Assigned Surgical Provider 05/18/20 11/19/22 Elaina Moreno MD [address] [place] [address] 207365 Cardiovascular & Thoracic Surgery 08/06/20 Kelsi Hassan MD [address] [place] [address] [address] [place], [place] 473405 Assigned Pulmonology Provider 06/28/21 02/05/22 John Webb MD [address] 335685 Cardiovascular Disease 08/25/21 John Webb MD [address] 018615 Cardiovascular Disease 08/25/21 Nav Hughes MD [address] [place] [address] Assigned Heart and Vascular Provider 10/31/21 09/03/23 Cassandra Mendoza MD ORTHOPAEDIC SURGERY [address] [address] Assigned Musculoskeletal Provider 10/31/21 08/13/22 Estella Hassan, [facility] [address] [place] [address] Assigned MTM Pharmacist 12/09/21 Mitra Kendall, [facility] Lead Shovel Engineer Primary Care - CC 01/26/2210/28 Lindsay Carey OD [address] [facility] [place] [address] Ophthalmology 01/29/22 Ravi Brownlee MD [address] [place] [address] [address] [place] [address] Assigned Pulmonology Provider 02/06/22 09/03/23 Arabella Fishman MA Financial Resource Worker 02/22/22 02/23/22 Richard Kam MD 500 [place] [address] Assigned Musculoskeletal Provider 08/14/22 Marisol Patel, [facility] [address] [place] [address] Pharmacist Pharmacist 11/22/22 01/09/23 [place] [address] [place], [address] [address] Assigned Neuroscience Provider 01/01/23 Rosemarie Mcdowell, RN Manager Of Production Diabetes Education 03/17/23 Ravi Brownlee MD [address] [place] [address] 799355 Assigned Heart and Vascular Provider 09/04/23 01/03/24 Mitra Kendall, [facility] Lead Shovel Engineer Primary Care - CC 12/12/23 Lizet Mann PA-C [address] [place] [address] 238765 Assigned Cancer Care Provider 01/04/24 Ravi Brownlee MD [address] [place] [address] Assigned Pulmonology Provider 01/04/24 Nav Hughes MD [address] [facility] [place] [address] Assigned Heart and Vascular Provider 01/04/24 Manuel Ahn OD [address] [place] [address] Penetration Tester 01/05/24 Arabella Fishman MA Financial Resource Worker 01/06/24 Thalia Charles [facility] Pharmacist Pharmacy 01/26/24 documented as of this encounter
--- OUTSIDE RECORDS SUMMARY | 2024-01-31 20:08 | XMS_ITS | Encounter Summary ---
Author Organization [facility] Address [address] [place] [address] Care Team Providers Care Airborne Sensor Specialist Name Role Phone Va Glez MD Primary Care Provider [phone] Va Glez MD Unavailable Kerry Bernal RN Unavailable [phone] Christy Campuzano PA-C Unavailable Hans Cannon MD Unavailable Burt Jovel MD Unavailable Estella Hassan [facility] Unavailable Josh Cordero MD, Madhuri Unavailable [phone] John Webb MD Unavailable [phone] John Webb MD Unavailable Nav Hughes MD Unavailable [phone] Estella Hassan [facility] Unavailable Lindsay Carey OD Unavailable Ravi Brownlee MD Unavailable Richard Kam MD Unavailable Marisol Patel [facility] Unavailable Gaby Vila DO Unavailable Rosemarie Mcdowell RN Unavailable Ravi Brownlee MD Unavailable [phone] Mitra Kendall [facility] Unavailable Lizet Mann PA-C Unavailable [phone] Ravi Brownlee MD Unavailable Nav Hughes MD Unavailable [phone] Manuel Ahn OD Unavailable Arabella Fishman MA Unavailable [phone] Thalia Charles [facility] Unavailable Unavailable Encounter Details Date Type Department Care Team (Late st Contact Info) Description 11/22/2022 MyC Medical Advice [facility] [address] [facility] [address] [place] [address] Marisol Patel, [facility] [address] [place] [address] Social History Tobacco Use Types Packs/Day Years [...] or ex-partner? No 05/31/2019 Social Connection and Isolat ion Panel [NHANES] Answer Date Recorded In a typical week, how many times do you talk on the phone with family, friends, or neighbors? Three times a week 10/20/2022 How often do you get togethe r with friends or relatives? Twice a week 10/20/2022 How often do you attend chur or christianity services? More than 4 times [...] more drinks on one occasion? Never 10/20/2022 Overall Financial Resource Strain (CARDIA) Answe r Date Recorded How hard is it for you to pa y for the very basics like food, housing, medical care, and heating? Very hard 10/20/2022 PHQ-2 Answer Date Recorded PHQ-2 Score 0 10/20/2022 [facility] - Occupational [...] exercise at this level? 10 min 10/20/2022 Hunger Vital Sign Answer Date Recorded Within the past 12 months, y ou worried that your food would run out before you got the money to buy more. Sometimes true Within the past 12 months, t he food you bought just didn't last and you didn't have money to get more. Sometimes true 11/2022 PRAPARE - Transportation Answer Date Re corded In the past 12 months, has l ack of transportation kept you from medical appointments or from getting medications? No 11/2022 In the past 12 months, has l ack of transportation kept you from meetings, work, or from getting things needed for daily living? No 10/20/2022 Housing Stability Vital Sign Answer Rafiq e Recorded In the last 12 months, was t here a time when you were not able to pay the mortgage or rent on time? No 10/20/2022 In the last 12 months, how many places have you lived? 1 10/20/2022 In the last 12 months, was t here a time when you did not have a steady place to sleep or slept in a nursing home (including now)? No 10/20/2022 Sex and Gender Information Value Date Recorded Sex Assigned at Not on file Legal 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 MICROBIOLOGY LAB ASSISTANT Gender Identity Not on file Sexual Orientation Not on file Occupation Industry Job Start Date Job End Date Not on file Not on file Not on file Not on file COVID-19 Exposure Response Date Recorded In the last 10 days, have yo u been in contact with someone who was confirmed or suspected to have Coronavirus/COVID-19? No / Unsure 10/29/2022 2:42 PM CDT documented as of this encounter Plan of Treatment Upcoming Encounters Date Type Department Care Team (Late st Contact Info) Description 02/01/2024 3:00 PM MICROBIOLOGY LAB ASSISTANT Office Visit [facility] [address] [place] [phone] Manuel Ahn, [address] [place] [address] 02/02/2024 1:30 PM MICROBIOLOGY LAB ASSISTANT Therapy Visit [facility] [address] [facility] [address] [place] [address] Alicja Roldan OT [address] [place], [place] [address] 02/05/2024 8:00 PM MICROBIOLOGY LAB ASSISTANT Therapy Visit [facility] [place] [address] [facility] [address] [place] [address] 02/13/2024 4:30 PM MICROBIOLOGY LAB ASSISTANT Oncology Visit [facility] [address] [place] [phone] Marian Agustin, SYSTEMS SUPPORT SPECIALIST [facility] [address] [facility] [address] [place] [address] 03/01/2024 7:00 AM MICROBIOLOGY LAB ASSISTANT Office Visit [address] [phone] Estella Hassan, [facility] [address] [place] [address] 03/23/2024 2:00 PM MICROBIOLOGY LAB ASSISTANT Office Visit [address] [phone] Lizet Mann PA-C [address] [place] [address] 03/29/2024 3:30 PM MICROBIOLOGY LAB ASSISTANT Office Visit [facility] [address] [facility] [address] [place] [phone] Hakeme Chacko MBBS [address] [place] [address] 05/03/2024 3:00 PM MICROBIOLOGY LAB ASSISTANT Office Visit [facility] [address] [phone] Gaurav Valenzuela, SYSTEMS SUPPORT SPECIALIST [facility] [address] [place] [address] 05/22/2024 10:30 AM CDT Office Visit [address] [phone] [facility] [address] [place] [address] 05/22/2024 11:30 AM CDT Office [facility] [address] [place] [address] [place] [address] [place], [place] [phone] documented as of this encounter Goals Goal Patient Goal Type Associated Problems Recent Progress Patient-Stated? Author Health Maintenance Care Plan HP GENERAL PROBLEM 100%(10/29/19 10:17 AM CDT) No Mitra Kendall LSW [...] Care Plan Patient expresses financial resource strain 100%(10/29/19 10:17 AM CDT) No Mitra Kendall LSW Note: Updated on 05/25/22 Barriers: Currently not working.Doesn't have insurance Strengths: Getting SSD. Patient expressed understanding of goal: Action steps to achieve this goal: 1. I will apply for unemployment. Decided not to 2. I will explore my options for health insurance by looking in to [employer] and talking with a FRW. Completed 3. I will look for a new job and will access resources that the [employer] [facility] offers. . Sarted new job 4. Continue to use Single Care to reduce the cost of my prescriptions. Create an action plan to increase financial stability Care Plan Patient expresses financial resource strain No Josefina Patel documented as of this encounter Visit Diagnoses [...] I will update CCC Team at outreach. Infection Onset Date Last Indicated Resolved Time Rule Out COVID-19 03/23/2023 03/23/2023 03/23/2023 6:30 PM MICROBIOLOGY LAB ASSISTANT COVID-19 03/23/2023 03/23/2023 04/13/2023 11:4 0 PM MICROBIOLOGY LAB ASSISTANT Rule Out COVID-19 06/05/2023 06/05/2023 06/05/2023 5:53 PM CDT Rule Out COVID-19 11/06/2023 11/06/2023 11/06/2023 11:05 PM CDT Rule Out COVID-19 11/20/2023 11/20/2023 11/20/2023 6:43 PM CDT Rule Out COVID-19 12/27/2023 12/27/2023 12/29/2023 1:37 PM CDT Assessment Noted Time PHQ-9 Depression Total Score: 2 10/21/19 23 3:59 PM CDT documented as of this encounter Care Teams Airborne Sensor Specialist Relationship Specialty [place] [address] [place] [address] PCP - General Family Practice 07/11/14 [place] [address] [place] [address] Assigned PCP 12/16/11 Kerry Bernal RN Personal Advocate & Liaison (PAL) 01/08/19 07/10/23 Christy Campuzano PA-C [address] [place] [address] [id number] Referring Physician Family Medicine 04/22/20 Hans Cannon MD [address] [place] [address] Resident Pulmonary Disease 04/22/20 Burt Jovel MD [address] [place] [address] [phone] Internal Medicine 05/08/20 12/13/23 Estella Hassan, [facility] [address] [place], [place] 8[address] Pharmacist Pharmacist 05/26/20 Elaina Moreno MD [address] [place] [address] 960025 Cardiovascular & Thoracic Surgery 08/06/20 John Webb MD [address] 663645 Cardiovascular Disease 08/25/21 John Webb MD [address] 668735 Cardiovascular Disease 08/25/21 Nav Hughes MD [address] [address] Assigned Heart and Vascular Provider 10/31/21 09/03/23 Estella Hassan, [facility] [address] [facility] [place] [place] [address] Assigned MTM Pharmacist 12/09/21 Lindsay Carey OD [address] [facility] [address] MD Ophthalmology 01/29/22 Ravi Brownlee MD [address] [place] [address] 101655 Assigned Pulmonology Provider 02/06/22 09/03/23 Richard Kam MD [address] [place] [address] 715285 Assigned Musculoskeletal Provider 08/14/22 Marisol Patel, [facility] [address] [address] Pharmacist Pharmacist 11/22/22 01/09/23 [place] [address] [address] Assigned Neuroscience Provider 01/01/23 Rosemarie Mcdowell, RN Cupola Tender Helper Diabetes Education 03/17/23 Ravi Brownlee MD [address] [place] [address] 685335 Assigned Heart and Vascular Provider 09/04/23 01/03/24 Mitra Kendall, PNE[facility]IVETER Lead Corporate General Manager Primary Care - CC 12/12/23 Lizet Mann PA-C [address] [place], [place] [phone] Assigned Cancer Care Provider 01/04/24 Ravi Brownlee MD [address] [facility] [address] [place], [place] 534[address] Assigned Pulmonology Provider 01/04/24 Nav Hughes MD [address] [place] [address] [place] 355325 Assigned Heart and Vascular Provider 01/04/24 Manuel Ahn OD [address] [facility] [place] [id number] Book Repairer 01/05/24 Arabella Fishman MA Financial Resource Worker 01/06/24 Thalia Charles [facility] Pharmacist Pharmacy 01/26/24 documented as of this encounter
--- OUTSIDE RECORDS SUMMARY | 2024-01-31 20:08 | XMS_ITS | Encounter Summary ---
Author Organization [facility] Address [address] [place] [address] Care Team Providers Care Vegetable Buncher Name Role Phone Va Glez MD Primary Care Provider [phone] Va Glez MD Unavailable Kerry Bernal RN Unavailable [phone] Christy Campuzano PA-C Unavailable [phone] Hans Cannon MD Unavailable [phone] Burt Jovel MD Unavailable Estella Hassan [facility] Unavailable Josh Cordero MD, Elaina Unavailable [phone] Josh Cordero MD, Elaina Unavailable [phone] John Webb MD Unavailable [phone] John Webb MD Unavailable [phone] Nav Hughes MD Unavailable Cassandra Mendoza MD Unavailable Estella Hassan [facility] Unavailable [phone] Mitra Kendall SNIPPER Unavailable [phone] Lindsay Carey OD Unavailable Raiv Brownlee MD Unavailable [phone] Arabella Fishman MA Unavailable [phone] Richard Kam MD Unavailable Marisol Patel [facility] Unavailable [phone] [employer] Unavailable Rosemarie Mcdowell RN Unavailable [phone] Ravi Brownlee MD Unavailable [phone] Mitra Kendall SNIPPER Unavailable Lizet Mann PA-C Unavailable Ravi Brownlee MD Unavailable Nav Hughes MD Unavailable [phone] Manuel Ahn OD Unavailable Arabella Fishman MA Unavailable [phone] Thalia Charles [facility] Unavailable Unavailable Encounter Details Date Type Department Care Team (Late st Contact Info) Description 02/12/2022 [facility] Medical Advice [facility] 9[address] [place] [address] Marian Agustin, COMMERCIAL ADMINISTRATOR [facility] [address] [facility] 207 [place] [address] Social History Tobacco Use Types [...] and Family Not on file 05/31/2019 Attends [employer] Not on file 05/30 Active Member [...] Answer Date Recorded PHQ-2 Score 1 01/28/2022 [facility] - Occupational [...] money to buy more. Never true 02/03/20 Within the past 12 months, t he [...] place to sleep or slept in a prison (including now)? No 02/02/2022 Sex and Gender Information Value Date Recorded Sex Assigned at Not on file Legal 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 RECRUITER SPECIALIST Gender Identity Not on file Sexual Orientation Not on file Occupation Industry Job Start Date Job End Date Not on file Not on file Not on file Not on file COVID-19 Exposure Response Date Recorded In the last 10 days, have yo u been in contact with someone who was confirmed or suspected to have Coronavirus/COVID-19? No / Unsure 02/05/2022 3:31 PM RECRUITER SPECIALIST documented as of this encounter Plan of Treatment Upcoming Encounters Date Type Department Care Team (Late st Contact Info) Description 02/01/2024 3:00 PM RECRUITER SPECIALIST Office Visit [facility] [place] [address] [place] [phone] [facility] [address] [place] [address] 02/02/2024 1:30 PM RECRUITER SPECIALIST Therapy Visit [facility] [address] [facility] [address] [place] [phone] Alicja Roldan, OT 909 [place] [address] 02/05/2024 8:00 PM RECRUITER SPECIALIST Therapy Visit [facility] [place] [address] [place] [address] 103 [place] [phone] 02/13/2024 4:30 PM RECRUITER SPECIALIST Oncology Visit [facility] 9[address] [place] [phone] Marian Agustin APRN [facility] [address] [facility] 207 [place] [address] 03/01/2024 7:00 AM RECRUITER SPECIALIST Office Visit [facility] [address] [place] [phone] Estella Hassan, [facility] 30[address] [place] [address] 03/23/2024 2:00 PM RECRUITER SPECIALIST Office Visit [facility] [address] [place] [address] Lizet Mann PA-C [address] [place] [address] 03/29/2024 3:30 PM RECRUITER SPECIALIST Office Visit [facility] [address] [facility] 200 [place] [phone] Hakeem Chacko MBBS 2945 [place] [address] 05/03/2024 3:00 PM RECRUITER SPECIALIST Office [facility] [address] [place] [phone] Gaurav Valenzuela, COMMERCIAL ADMINISTRATOR [address] 944854 05/22/2024 10:30 AM CDT Office Visit [address] [phone] Estella Hassan, [facility] 30[address] [place] [address] 05/22/2024 11:30 AM CDT Office Visit [address] [address] Va Glez MD [address] [place] [address] [phone] documented as of this encounter Goals Goal Patient Goal Type Associated Problems Recent Progress Patient-Stated? Author Health Maintenance Care Plan HP GENERAL PROBLEM 100%(10/29/19 10:17 AM CDT) No Mitra Kendall, SILVER [...] to wait for Medicare starting October 12 documented as of this encounter Visit Diagnoses Not on filedocumented in this encounter Additional Health Concerns Active Problems Noted Date Diagnosed Date HP GENERAL PROBLEM 02/02/2022 Infection Onset Date Last Indicated Resolved Time Rule Out COVID-19 07/29/2022 07/29/2022 07/31/2022 11:17 AM CDT Rule Out COVID-19 03/23/2023 03/23/2023 03/23/2023 6:30 PM RECRUITER SPECIALIST COVID-19 03/23/2023 03/23/2023 04/13/2023 11:4 0 PM RECRUITER SPECIALIST Rule Out COVID-19 06/05/2023 06/05/2023 06/05/2023 5:53 PM CDT Rule Out COVID-19 11/06/2023 11/06/2023 11/06/2023 11:05 PM CDT Rule Out COVID-19 11/20/2023 11/20/2023 11/20/2023 6:43 PM CDT Rule Out COVID-19 12/27/2023 12/27/2023 12/29/2023 1:37 PM CDT Assessment Noted Time PHQ-9 Depression Total Score: 4 01/29/20 3:29 PM RECRUITER SPECIALIST documented as of this encounter Care Teams Vegetable Buncher Relationship Specialty [place] [address] [place] [address] PCP - General Family Practice 07/11/14 [place] [address] [place] [address] Assigned PCP 12/16/11 eKrry Bernal, INOCENCIO Personal Advocate & Liaison (PAL) 01/08/19 07/10/23 Christy Campuzano PA-C [address] [place] [address] 626542 Referring Physician Family Medicine 04/22/20 Hans Cannon MD [address] [place] [address] Resident Pulmonary Disease 04/22/20 Burt Jovel MD [address] [place] [address] Internal Medicine 05/08/20 12/13/23 Estella Hassan, [facility] [address] [place] [address] Pharmacist Pharmacist 05/26/20 Elaina Moreno MD [address] [place] [address] Assigned Surgical Provider 05/18/20 11/19/22 Elaina Moreno MD [address] [place] [address] Cardiovascular & Thoracic Surgery 08/06/20 John Webb MD [address] [place] [address] Cardiovascular Disease 08/25/21 John Webb MD [address] [address] Cardiovascular Disease 08/25/21 Nav Hughes MD [address] [place] [address] Assigned Heart and Vascular Provider 10/31/21 09/03/23 Cassandra Mendoza MD ORTHOPAEDIC SURGERY [address] [place] [address] Assigned Musculoskeletal Provider 10/31/21 08/13/22 [facility] [address] [place] [address] Assigned MTM Pharmacist 12/09/21 Mitra Kendall, [facility] Lead Cattery Operator Primary Care - CC 01/26/2210/28 Lindsay Carey OD [address] [facility] [place] [address] Ophthalmology 01/29/22 Ravi Brownlee MD [address] [place] [address] 268635 Assigned Pulmonology Provider 02/06/22 09/03/23 Arabella Fishman MA Financial Resource Worker 02/22/22 02/23/22 Richard Kam MD [address] [place] [address] 842675 Assigned Musculoskeletal Provider 08/14/22 Marisol Patel [facility] [address] [place] [phone] Pharmacist Pharmacist 11/22/22 01/09/23 [place] [address] 483877 Assigned Neuroscience Provider 01/01/23 Rosemarie Mcdowell, RN Corner Trimmer Operator Diabetes Education 03/17/23 Ravi Brownlee MD [address] [place] [address] [phone] Assigned Heart and Vascular Provider 09/04/23 01/03/24 Mitra Kendall, [facility] Lead Cattery Operator Primary Care - CC 12/12/23 Lizet Mann PA-C [address] [place], [place] 894645 Assigned Cancer Care Provider 01/04/24 Ravi Brownlee MD [address] [place] [address] Assigned Pulmonology Provider 01/04/24 Nav Hughes MD [address] 145055 Assigned Heart and Vascular Provider 01/04/24 Manuel Ahn OD [address] [address] Check Pilot 01/05/24 Arabella Fishman MA Financial Resource Worker 01/06/24 Thalia Charles, [facility] Pharmacist Pharmacy 01/26/24 documented as of this encounter
--- OUTSIDE RECORDS SUMMARY | 2024-01-31 20:08 | XMS_ITS | Encounter Summary ---
Author Organization [place] Address [address] [place] [address] Care Team Providers Care Director Of Marketing Communications Name Role Phone Va Glez MD Primary Care Provider Va Glez MD Unavailable Kerry Bernal RN Unavailable [phone] Christy Campuzano PA-C Unavailable [phone] Hans Cannon MD Unavailable Mitra Kendall SEO INTERN Unavailable [phone] Burt Jovel MD Unavailable Estella Hassan [facility] Unavailable Josh Cordero MD, Madhuri Unavailable [phone] Josh Cordero MD, Madhuri Unavailable [phone] Kelsi Hassan MD Unavailable [phone] John Webb MD Unavailable [phone] John Webb MD Unavailable Nav Hughes MD Unavailable + [phone] Cassandra Mendoza MD Unavailable Estella Hassan [facility] Unavailable Mitra Kendall SEO INTERN Unavailable Lindsay Carey OD Unavailable [phone] Ravi Brownlee MD Unavailable [phone] Arabella Fishman MA Unavailable [phone] Richard Kam MD Unavailable JorgeMarisol Jacques [facility] Unavailable Gaby iVla DO Unavailable Rosemarie Mcdowell RN Unavailable Ravi Brownlee MD Unavailable Mitra Kendall SEO INTERN Unavailable Lizet Mann PA-C Unavailable Ravi Brownlee MD Unavailable Nav Hughes MD Unavailable [phone] Manuel Ahn OD Unavailable Arabella Fishman MA Unavailable [phone] Thalia Charles [facility] Unavailable Unavailable Encounter Details Date Type Department Care Team (Late st Contact Info) Description 01/07/2022 [facility] [address] [address] Estella Hassan, [facility] [address] [place] [address] Social History Tobacco Use Types Packs/Day Years [...] and Family Not on file 05/31/2019 Attends [employer] Not on file 05/30 Active Member [...] points; Administer PHQ-9 if positive 1 08/04/2021 [facility] [place] of Occupat ional Health - Occupational Stress [...] on file Legal 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 CUSTOMER SUPPLY CHAIN ANALYST Gender Identity Not on file Sexual Orientation Not on file Occupation Industry Job Start Date Job End Date Not on file Not on file Not on file Not on file COVID-19 Exposure Response Date Recorded In the last 10 days, have yo u been in contact with someone who was confirmed or suspected to have Coronavirus/COVID-19? No / Unsure 01/07/2022 3:26 PM CDT documented as of this encounter Plan of Treatment Upcoming Encounters Date Type Department Care Team (Late st Contact Info) Description 02/01/2024 3:00 PM CUSTOMER SUPPLY CHAIN ANALYST Office Visit [facility] [address] [place] [phone] Manuel Ahn, [address] [place] [address] 02/02/2024 1:30 PM CUSTOMER SUPPLY CHAIN ANALYST Therapy [facility] [place] [facility] [place] [address] [facility] [address] [place] [phone] Alicja Roldan, OT [address] [place] [address] 02/05/2024 8:00 PM CUSTOMER SUPPLY CHAIN ANALYST Therapy Visit [facility] [place] [address] [place] [address] [address] [place] [phone] 02/13/2024 4:30 PM CUSTOMER SUPPLY CHAIN ANALYST Oncology Visit [facility] 9[address] [place] [phone] Marian Agustin, NESSA BATTERY STACKER [address] [facility] [address] [place] [address] 03/01/2024 7:00 AM CUSTOMER SUPPLY CHAIN ANALYST Office Visit [facility] [address] [place] [phone] Estella Hasasn, [facility] [address] [place] [address] 03/23/2024 2:00 PM CUSTOMER SUPPLY CHAIN ANALYST Office Visit [facility] [address] [place] [address] Lizet Mann PA-C 7[address] [place] [address] 03/29/2024 3:30 PM CUSTOMER SUPPLY CHAIN ANALYST Office Visit [facility] [address] [facility] [address] [place] [address] Hakeem Chacko MBBS [address] [place] [address] 05/03/2024 3:00 PM CUSTOMER SUPPLY CHAIN ANALYST Office Visit [facility] [place] [address] [place] [address] Gaurav Valenzuela, FOUR HORSE HITCH DRIVER [facility] [address] [place] [address] 05/22/2024 10:30 AM CDT Office Visit [facility] [address] [place] [phone] Estella Hassan, [facility] [address] [place] [address] 05/22/2024 11:30 AM CDT Office Visit [facility] [address] [place] [phone] [place] [address] [place], [place] [phone] documented as of this encounter Visit Diagnoses Not on filedocumented in this encounter Additional Health Concerns Infection Onset Date Last Indicated Resolved Time Rule Out COVID-19 01/22/2022 01/22/2022 01/24/2022 1:05 PM CUSTOMER SUPPLY CHAIN ANALYST Rule Out COVID-19 01/25/2022 01/25/2022 01/25/2022 5:21 AM CUSTOMER SUPPLY CHAIN ANALYST Influenza 01/25/2022 01/25/2022 02/01/2022 11:4 1 PM CUSTOMER SUPPLY CHAIN ANALYST Rule Out COVID-19 07/29/2022 07/29/2022 07/31/2022 11:17 AM CDT Rule Out COVID-19 03/23/2023 03/23/2023 03/23/2023 6:30 PM CUSTOMER SUPPLY CHAIN ANALYST COVID-19 03/23/2023 03/23/2023 04/13/2023 11:4 0 PM CUSTOMER SUPPLY CHAIN ANALYST Rule Out COVID-19 06/05/2023 06/05/2023 06/05/2023 5:53 PM CDT Rule Out COVID-19 11/06/2023 11/06/2023 11/06/2023 11:05 PM CDT Rule Out COVID-19 11/20/2023 11/20/2023 11/20/2023 6:43 PM CDT Rule Out COVID-19 12/27/2023 12/27/2023 12/29/2023 1:37 PM CDT Assessment Noted Time PHQ-9 Depression Total Score: 6 08/05/19 3:46 PM CDT documented as of this encounter Care Teams Director Of Marketing Communications Relationship Specialty [place] [address] [place] [address] PCP - General Family Practice 07/11/14 [place] [address] [place] [address] Assigned PCP 12/16/11 Kerry Bernal RN Personal Advocate & Liaison (PAL) 01/08/19 07/10/23 Christy Campuzano PA-C [address] [place] [address] Referring Physician Family Medicine 04/22/20 [place] [address] [place] [address] Resident Pulmonary Disease 04/22/20 EnochMitra, [facility] Lead Dental Laboratory Assistant Primary Care - CC 01/08/1901/12 Burt Jovel MD Internal Medicine 05/08/20 12/13/23 Estella Hassan, [facility] [address] [place] [address] Pharmacist Pharmacist 05/26/20 Elaina Moreno MD [address] [place] [address] Assigned Surgical Provider 05/18/20 11/19/22 Elaina Moreno MD [address] [place] [address] [phone] Cardiovascular & Thoracic Surgery 08/06/20 Kelsi Hassan MD [address] [place] [address] [phone] Assigned Pulmonology Provider 06/28/21 02/05/22 John Webb MD [address] [id number] Cardiovascular Disease 08/25/21 John Webb MD [address] [id number] Cardiovascular Disease 08/25/21 Nav Hughes MD [address] [place] [address] Assigned Heart and Vascular Provider 10/31/21 09/03/23 Cassandra Mendoza MD ORTHOPAEDIC SURGERY [facility] [place] [address] [address] Assigned Musculoskeletal Provider 10/31/21 08/13/22 Estella Hassan, [facility] [address] [place] [address] Assigned MTM Pharmacist 12/09/21 Mitra Kendall, [facility] Lead Dental Laboratory Assistant Primary Care - CC 01/26/2210/28 Lindsay Carey OD [facility] [address] [address] Ophthalmology 01/29/22 Ravi Brownlee MD [address] [place] [address] Assigned Pulmonology Provider 02/06/22 09/03/23 Araeblla Fishman MA Financial Resource Worker 02/22/22 02/23/22 Richard Kam MD [address] [place] [address] Assigned Musculoskeletal Provider 08/14/22 Marisol Patel, [facility] [address] [id number] Pharmacist Pharmacist 11/22/22 01/09/23 [place] [address] [place] [address] [address] Assigned Neuroscience Provider 01/01/23 Rosemarie Mcdowell RN Photograph Printer Diabetes Education 03/17/23 Ravi Brownlee MD [address] [place] [address] 802105 Assigned Heart and Vascular Provider 09/04/23 01/03/24 Mitra Kendall, [facility] Lead Dental Laboratory Assistant Primary Care - CC 12/12/23 Lizet Mann PA-C [address] [place] [address] Assigned Cancer Care Provider 01/04/24 Ravi Brownlee MD [address] [place] [address] Assigned Pulmonology Provider 01/04/24 Nav Hughes MD [address] [facility] [address]ar[address] [address] Assigned Heart and Vascular Provider 01/04/24 Manuel Ahn OD [address] [facility] [place] [address] Cold Roll Inspector 01/05/24 Arabella Fishman MA Financial Resource Worker 01/06/24 Thalia Charles, [facility] Pharmacist Pharmacy 01/26/24 documented as of this encounter
--- OUTSIDE RECORDS SUMMARY | 2024-01-31 20:08 | XMS_ITS | Encounter Summary ---
Author Organization [place] Address [address] [place] [address] Care Team Providers Care Regional Program Manager Name Role Phone Va Glez MD Primary Care Provider [phone] Va Glez MD Unavailable Kerry Bernal RN Unavailable Christy Campuzano PA-C Unavailable Hans Cannon MD Unavailable Burt Jovel MD Unavailable [phone] Estella Hassan [facility] Unavailable Josh Cordero MD, Madhuri Unavailable [phone] John Webb MD Unavailable John Webb MD Unavailable [phone] Nav Hughes MD Unavailable [phone] Estella Hassan [facility] Unavailable Lindsay Carey OD Unavailable Ravi Brownlee MD Unavailable [phone] Richard Kam MD Unavailable Gaby Vila DO Unavailable Rosemarie Mcdowell RN Unavailable Ravi Brownlee MD Unavailable Mitra Kendall RATTLE LEAK AND SQUEAK REPAIRER Unavailable [phone] Lizet Mann PA-C Unavailable Ravi Brownlee MD Unavailable Nav Hughes MD Unavailable [phone] Anabelle Manuelgina Syed OD Unavailable Arabella Fishman MA Unavailable [phone] Thalia Charles [facility] Unavailable Unavailable Reason for Visit * Reason Onset Date Comments Refill Request 01/31/2023 Encounter Details Date Type Department Care Team (Late st Contact Info) Description 01/31/[address] [place] [address] Ravi Brownlee MD [address] [facility] 276 [place] [address] Refill Request Social History Tobacco Use Types [...] often do you attend chur ch or spiritism services? More than 4 times [...] Answer Date Recorded PHQ-2 Score 0 10/20/2022 [facility] - Occupational Stress Questionnaire Answer Date [...] before you got money to buy more? Patient refused 2022 Within the past 12 months, d id the food you bought just not last and you didn t have money to get more? No 01/18/2023 Housing Stability Answer Date Recorded Do you have housing? (Housin g is defined as stable permanent housing and does not include staying ouside in a car, in a tent, in an abandoned building, in an overnight prison, 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.) Yes 01/18/2023 Are you worried about losing your housing? No 01/18/2023 Financial Resource Strain Answer Date R ecorded Within the past 12 months, h ave you or your family members you live with been unable to get utilities (heat, electricity) when it was really needed? No 01/18/2023 Transportation Needs Answer Date Record ed Within the past 12 months, h as lack of transportation kept you from medical appointments, getting your medicines, non-medical meetings or appointments, work, or from getting things that you need? No 01/18/2023 Interpersonal Safety Answer Date Record ed Do [...] on file Legal 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 CONSERVATION SCIENCE OFFICER Gender Identity Not on file Sexual Orientation Not on file Occupation Industry Job Start Date Job End Date Not on file Not on file Not on file Not on file documented as of this encounter Plan of Treatment Upcoming Encounters Date Type Department Care Team (Late st Contact Info) Description 02/01/2024 3:00 PM CONSERVATION SCIENCE OFFICER Office Visit [facility] [address] [place] [phone] [facility] [address] [place] [address] 02/02/2024 1:30 PM CONSERVATION SCIENCE OFFICER Therapy Visit [facility] [place] [facility] [place] [address] [facility] 300 [place] [phone] Alicja Roldan OT 909 [place] [address] 02/05/2024 8:00 PM CONSERVATION SCIENCE OFFICER Therapy Visit [facility] [address] [place] [phone] 02/13/2024 4:30 PM CONSERVATION SCIENCE OFFICER Oncology Visit [facility] 909 [place] [phone] Marian Agustin APRN [facility] [address] [facility] 207 [place] [address] 03/01/2024 7:00 AM CONSERVATION SCIENCE OFFICER Office Visit [address] [phone] Estella Hassan, [facility] 30[address] [place] [address] 03/23/2024 2:00 PM CONSERVATION SCIENCE OFFICER Office Visit [facility] [address] [place] [address] [place] [address] Lizet Mann PA-C [address] [place] [address] 03/29/2024 3:30 PM CONSERVATION SCIENCE OFFICER Office Visit [facility] [address] [phone] Hakeem Chacko MBBS 2945 [place] [address] 05/03/2024 3:00 PM CONSERVATION SCIENCE OFFICER Office Visit [address] [address] Gaurav Valenzuela, SPECIAL EDUCATION RESOURCE TEACHER [address] [address] 05/22/2024 10:30 AM CDT Office Visit [address] [phone] Estella Hassan, [place] [address] [place] [address] 05/22/2024 11:30 AM CDT Office Visit [address] [phone] Va Glez MD [address] [place] [address] [phone] documented as of this encounter Goals Goal [...] for health insurance by looking in to [employer] and talking with a FRW. Completed 3. I will look for a new job and will access resources that the [employer] center offers. . Sarted new job 4. [...] Out COVID-19 03/23/2023 03/23/2023 03/23/2023 6:30 PM CONSERVATION SCIENCE OFFICER COVID-19 03/23/2023 03/23/2023 04/13/2023 11:4 0 PM CONSERVATION SCIENCE OFFICER Rule Out COVID-19 06/05/2023 06/05/2023 06/05/2023 5:53 PM CDT Rule Out COVID-19 11/06/2023 11/06/2023 11/06/2023 11:05 PM CDT Rule Out COVID-19 11/20/2023 11/20/2023 11/20/2023 6:43 PM CDT Rule Out COVID-19 12/27/2023 12/27/2023 12/29/2023 1:37 PM CDT Assessment Noted Time PHQ-9 Depression Total Score: 2 10/21/19 23 3:59 PM CDT documented as of this encounter Care Teams Regional Program Manager Relationship Specialty [place] [address] [place] [address] PCP - General Family Practice 07/11/14 [place] [address] [place] [address] Assigned PCP 12/16/11 Kerry Bernal RN Personal Advocate & Liaison (PAL) 01/08/19 07/10/23 Christy Campzuano PA-C [address] [place] [address] 995882 Referring Physician Family Medicine 04/22/20 Hans Cannon MD [address] [place] [address] 388012 Resident Pulmonary Disease 04/22/20 Burt Jovel MD [address] [place], [place] 745382 Internal Medicine 05/08/20 12/13/23 Estella Hassan, [facility] [address] [place], [place] 9084[address] Pharmacist Pharmacist 05/26/20 Elaina Moreno MD 909 [place], [place] 345765 Cardiovascular & Thoracic Surgery 08/06/20 John Webb MD [address] 144935 Cardiovascular Disease 08/25/21 John Webb MD [address] 265285 Cardiovascular Disease 08/25/21 Nav Hughes MD [address] [address]35 Assigned Heart and Vascular Provider 10/31/21 09/03/23 Estella Hassan, [facility] [address] [place], [place] 829976 Assigned MTM Pharmacist 12/09/21 Lindsay Carey OD [address] [place] [address] Ophthalmology 01/29/22 Ravi Brownlee MD [address] [place] [address] Assigned Pulmonology Provider 02/06/22 09/03/23 Richard Kam MD [address] [place] [address] Assigned Musculoskeletal Provider 08/14/22 [place] [address] [place], [address] [address] Assigned Neuroscience Provider 01/01/23 Rosemarie Mcdowell, RN Installers Mechanical Diabetes Education 03/17/23 Ravi Brownlee MD [address] [place] [address] Assigned Heart and Vascular Provider 09/04/23 01/03/24 Mitra Kendall, [facility] Lead Registered Nurse Float Pool Primary Care - CC 12/12/23 Lizet Mann PA-C [address] [place] [address] Assigned Cancer Care Provider 01/04/24 Ravi Brownlee MD [address] [place] [address] Assigned Pulmonology Provider 01/04/24 Nav Hughes MD [address] [place] [address] Assigned Heart and Vascular Provider 01/04/24 Manuel Ahn, ARA [address] [facility] [place] [address] Tool Die Maker 01/05/24 Arabella Fishman MA Financial Resource Worker 01/06/24 Thalia Charles RP Pharmacist Pharmacy 01/26/24 documented as of this encounter
--- OUTSIDE RECORDS SUMMARY | 2024-01-31 20:08 | XMS_ITS | Encounter Summary ---
Author Organization [facility] Address [address] [place] [address] Care Team Providers Care Potato Pancake Frier Name Role Phone Va Glez MD Primary Care Provider Va Glez MD Unavailable Kerry Bernal RN Unavailable [phone] Christy Campuzano PA-C Unavailable [phone] Hans Cannon MD Unavailable Burt Jovel MD Unavailable Estella Hassan [facility] Unavailable [phone] Josh Cordero MD, Elaina Unavailable [phone] Josh Coredro MD, Elaina Unavailable [phone] John Webb MD Unavailable [phone] John Webb MD Unavailable [phone] Nav Hughes MD Unavailable Cassandra Mendoza MD Unavailable Estella Hassan [facility] Unavailable [phone] Mitra Kendall SENIOR SAFETY MANAGEMENT CONSULTANT Unavailable Lindsay Carey OD Unavailable Ravi Brownlee MD Unavailable [phone] Arabella Fishman MA Unavailable [phone] Richard Kam MD Unavailable Marisol Patel [facility] Unavailable [phone] Gaby Vila Unavailable Rosemarie Mcdowell RN Unavailable Ravi Brownlee MD Unavailable [phone] Mitra Kendall SENIOR SAFETY MANAGEMENT CONSULTANT Unavailable [phone] Lizet Mann PA-C Unavailable Ravi Brownlee MD Unavailable Nav Hughes MD Unavailable [phone] Manuel Ahn OD Unavailable Arabella Fishman MA Unavailable [phone] Thalia Charles [facility] Unavailable Unavailable Encounter Details Date Type Department Care Team (Late st Contact Info) Description 02/10/2022 MyC Medical Advice [facility] [address] 200 [place] [address] Ravi Brownlee MD 420 [facility] 276 [place] [address] Social History Tobacco Use Types [...] and Family Not on file 05/31/2019 Attends Religion Services Not on file 05/30 Active Member [...] Answer Date Recorded PHQ-2 Score 1 01/28/2022 [facility] [...] place to sleep or slept in a correction (including now)? No 02/02/2022 Sex and Gender Information Value Date Recorded Sex Assigned at Not on file Legal 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 FINANCIAL SERVICES SALES REPRESENTATIVE Gender Identity Not on file Sexual Orientation Not on file Occupation Industry Job Start Date Job End Date Not on file Not on file Not on file Not on file COVID-19 Exposure Response Date Recorded In the last 10 days, have yo u been in contact with someone who was confirmed or suspected to have Coronavirus/COVID-19? No / Unsure 02/05/2022 3:31 PM FINANCIAL SERVICES SALES REPRESENTATIVE documented as of this encounter Plan of Treatment Upcoming Encounters Date Type Department Care Team (Late st Contact Info) Description 02/01/2024 3:00 PM FINANCIAL SERVICES SALES REPRESENTATIVE Office Visit [facility] 6341 [place] [phone] Manuel Ahn, [address] [place] [address] 02/02/2024 1:30 PM FINANCIAL SERVICES SALES REPRESENTATIVE Therapy Visit [facility] [address] [facility] [address] [place] [phone] Alicja Roldan, OT [address] [place] [address] 02/05/2024 8:00 PM FINANCIAL SERVICES SALES REPRESENTATIVE Therapy Visit [facility] [place] [address] [place] [address] 103 [place] [phone] 02/13/2024 4:30 PM FINANCIAL SERVICES SALES REPRESENTATIVE Oncology [facility] 909 [place] [phone] Marian Agustin APRN ELEVATOR ERECTOR [address] [facility] 207 [place] [address] 03/01/2024 7:00 AM FINANCIAL SERVICES SALES REPRESENTATIVE Office Visit [facility] [address] [place] [phone] Estella Hassan, [facility] [address] [place] [address] 03/23/2024 2:00 PM FINANCIAL SERVICES SALES REPRESENTATIVE Office Visit [facility] [address] [place] [phone] Lizet Mann PA-C 717 [place], [place] 682355 03/29/2024 3:30 PM FINANCIAL SERVICES SALES REPRESENTATIVE Office Visit [facility] 2945 [facility] 200 [place] [phone] Hakeem Chacko MBBS 2945 [place] [address] 05/03/2024 3:00 PM FINANCIAL SERVICES SALES REPRESENTATIVE Office Visit [address] [address] Gaurav Valenzuela, PLANT TENDER [address] 1040[address] 05/22/2024 10:30 AM CDT Office Visit [address] [phone] Estella Hassan, [facility] [address] [place] [address] 05/22/2024 11:30 AM CDT Office Visit [address] [address] Va Glez MD [address] [place] [address] [phone] documented as of this encounter Goals Goal Patient Goal Type Associated Problems Recent Progress Patient-Stated? Author Health Maintenance Care Plan HP GENERAL PROBLEM 100%(10/29/19 10:17 AM CDT) No Mitra Kendall, SENIOR SAFETY MANAGEMENT CONSULTANT Note: Update on 05/25/22 Barriers: Currently without [...] Out COVID-19 03/23/2023 03/23/2023 03/23/2023 6:30 PM FINANCIAL SERVICES SALES REPRESENTATIVE COVID-19 03/23/2023 03/23/2023 04/13/2023 11:4 0 PM FINANCIAL SERVICES SALES REPRESENTATIVE Rule Out COVID-19 06/05/2023 06/05/2023 06/05/2023 5:53 PM CDT Rule Out COVID-19 11/06/2023 11/06/2023 11/06/2023 11:05 PM CDT Rule Out COVID-19 11/20/2023 11/20/2023 11/20/2023 6:43 PM CDT Rule Out COVID-19 12/27/2023 12/27/2023 12/29/2023 1:37 PM CDT Assessment Noted Time PHQ-9 Depression Total Score: 4 01/29/20 3:29 PM FINANCIAL SERVICES SALES REPRESENTATIVE documented as of this encounter Care Teams Potato Pancake Frier Relationship Specialty [place] [address] [place] [address] PCP - General Family Practice 07/11/14 [place] [address] [place] [address] Assigned PCP 12/16/11 Kerry Bernal, INOCENCIO Personal Advocate & Liaison (PAL) 01/08/19 07/10/23 Christy Campuzano PA-C [address] [place] [address] [phone] Referring Physician Family Medicine 04/22/20 Hans Cannon MD [address] [place] [address] Resident Pulmonary Disease 04/22/20 Burt Jovel MD [address] [place] [address] Internal Medicine 05/08/20 12/13/23 Estella Hassan, [facility] [address] [place] [address] Pharmacist Pharmacist 05/26/20 Elaina Moreno MD [address] [place] [address] Assigned Surgical Provider 05/18/20 11/19/22 Elaina Moreno MD [address] [place] [address] Cardiovascular & Thoracic Surgery 08/06/20 John Webb MD [address] [place] [address] Cardiovascular Disease 08/25/21 John Webb MD [address] 298235 Cardiovascular Disease 08/25/21 Nav Hughes MD [address] [place] [address] Assigned Heart and Vascular Provider 10/31/21 09/03/23 Cassandra Mendoza MD ORTHOPAEDIC SURGERY [address] [place] [address] 627154 Assigned Musculoskeletal Provider 10/31/21 08/13/22 [facility] [address] [place] [address] Assigned MTM Pharmacist 12/09/21 Mitra Kendall, [facility] Lead Food And Beverage Controller Primary Care - CC 01/26/2210/28 Lindsay Carey OD [address] [facility] [place] [address] Ophthalmology 01/29/22 Ravi Brownlee MD [address] [place] [address] [phone] Assigned Pulmonology Provider 02/06/22 09/03/23 Arabella Fishman MA Financial Resource Worker 02/22/22 02/23/22 Richard Kam MD [address] [place] [address] [phone] Assigned Musculoskeletal Provider 08/14/22 Marisol Patel [facility] [address] [place] [phone] Pharmacist Pharmacist 11/22/22 01/09/23 [place] [address] 359657 Assigned Neuroscience Provider 01/01/23 Rosemarie Mcdowell, RN Flying Squad Salesperson Diabetes Education 03/17/23 Ravi Brownlee MD [address] [place] [address] Assigned Heart and Vascular Provider 09/04/23 01/03/24 Mitra Kendall, [facility] Lead Food And Beverage Controller Primary Care - CC 12/12/23 Lizet Mann PA-C [address] [place] [address] [phone] Assigned Cancer Care Provider 01/04/24 Ravi Brownlee MD [address] [place] [address] Assigned Pulmonology Provider 01/04/24 Nav Hughes MD [address] 967595 Assigned Heart and Vascular Provider 01/04/24 Manuel Ahn OD [address] [address] Cd Manufacturing Supervisor 01/05/24 Arabella Fishman MA Financial Resource Worker 01/06/24 Thalia Charles, [facility] Pharmacist Pharmacy 01/26/24 documented as of this encounter
--- OUTSIDE RECORDS SUMMARY | 2024-01-31 20:09 | XMS_ITS | Encounter Summary ---
Author Organization [facility] Address [address] [place] [address] Care Team Providers Care Fresco Artist Name Role Phone Va Glez MD Primary Care Provider [phone] Va Glez MD Unavailable Kerry Bernal RN Unavailable [phone] Ravi Barillas DPM Unavailable [phone] Christy Campuzano PA-C Unavailable [phone] Hans Cannon MD Unavailable [phone] Mitra Kendall VIDEO SYSTEM REPAIRER Unavailable [phone] Burt Jovel MD Unavailable Estella Hassan [facility] Unavailable [phone] Reji Chavez MD Unavailable [phone] Josh Cordero MD, Madhuri Unavailable [phone] Josh Cordero MD, Madhuri Unavailable [phone] Kelsi Hassan MD Unavailable [phone] John Webb MD Unavailable John Webb MD Unavailable [phone] Estella Hassan [facility] Unavailable Nav Hughes MD Unavailable [phone] Cassandar Mendoza MD Unavailable [phone] Estella Hassan [facility] Unavailable [phone] Mitra Kendall VIDEO SYSTEM REPAIRER Unavailable Lindsay Carey OD Unavailable BeckvilleRavi bajwa MD Unavailable [phone] Arabella Fishman MA Unavailable [phone] Richard Kam MD Unavailable Marisol Patel [facility] Unavailable [phone] Gaby Vila DO Unavailable Rosemarie Mcdowell RN Unavailable Ravi Brownlee MD Unavailable Mitra Kendall VIDEO SYSTEM REPAIRER Unavailable Lizet Mann PA-C Unavailable Ravi Brownlee MD Unavailable Nav Hughes MD Unavailable [phone] Manuel Ahn OD Unavailable [phone] Arabella Fishman MA Unavailable [phone] Thalia Charles [facility] Unavailable Unavailable Encounter Details Date Type Department Care Team (Late st Contact Info) Description 09/29/2020 [facility] Medical Advice [address] [address] Estella Hassan, [facility] [address] [place] [address] Social History Tobacco Use Types Packs/Day Years [...] and Family Not on file 05/31/2019 Attends Protestant Services Not on file 05/30 Active Member [...] points; Administer PHQ-9 if positive 1 08/06/2020 [facility] [...] on file Legal 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 DIRECTOR PRESALES Gender Identity Not on file Sexual Orientation [...] st Contact Info) Description 02/01/2024 3:00 PM DIRECTOR PRESALES Office Visit [facility] 6341 [place] [phone] [facility] [address] [place] [address] 02/02/2024 1:30 PM DIRECTOR PRESALES Therapy Visit [facility] [address] [facility] 300 [place] [phone] Alicja Roldan OT 909 [place] [address] 02/05/2024 8:00 PM DIRECTOR PRESALES Therapy Visit [facility] [place] [address] [place] [address] 103 [place] [phone] 02/13/2024 4:30 PM DIRECTOR PRESALES Oncology Visit [facility] 909 [place] [phone] Marian Agustin APRN [facility] [address] [facility] 207 [place] [address] 03/01/2024 7:00 AM DIRECTOR PRESALES Office Visit [address] [phone] Estella Hassan, [facility] [address] [place] [address] 03/23/2024 2:00 PM DIRECTOR PRESALES Office Visit [facility] [address] [place] [address] [place] [address] Lizet Mann PA-C [address] [place] [address] 03/29/2024 3:30 PM DIRECTOR PRESALES Office Visit [facility] 2945 [facility] 200 [place] [phone] Hakeem Chacko MBBS 2945 [place] [address] 05/03/2024 3:00 PM DIRECTOR PRESALES Office Visit [facility] [address] [place] [phone] Gaurav Valenzuela, PROGRAM AIDE GROUP WORK [address] 845024 05/22/2024 10:30 AM CDT Office Visit [address] [phone] Estella Hassan, [place] 694563 [place] [address] 05/22/2024 11:30 AM CDT Office Visit [address] [phone] Va Glez MD [address] [place] [address] [phone] documented as of this encounter Visit Diagnoses Not on filedocumented in this encounter Additional Health Concerns Infection Onset Date Last Indicated Resolved Time Rule Out COVID-19 06/22/2021 06/22/2021 06/23/2021 8:58 PM CDT Rule Out COVID-19 01/22/2022 01/22/2022 01/24/2022 1:05 PM DIRECTOR PRESALES Rule Out COVID-19 01/25/2022 01/25/2022 01/25/2022 5:21 AM DIRECTOR PRESALES Influenza 01/25/2022 01/25/2022 02/01/2022 11:4 1 PM DIRECTOR PRESALES Rule Out COVID-19 07/29/2022 07/29/2022 07/31/2022 11:17 AM CDT Rule Out COVID-19 03/23/2023 03/23/2023 03/23/2023 6:30 PM DIRECTOR PRESALES COVID-19 03/23/2023 03/23/2023 04/13/2023 11:4 0 PM DIRECTOR PRESALES Rule Out COVID-19 06/05/2023 06/05/2023 06/05/2023 5:53 PM CDT Rule Out COVID-19 11/06/2023 11/06/2023 11/06/2023 11:05 PM CDT Rule Out COVID-19 11/20/2023 11/20/2023 11/20/2023 6:43 PM CDT Rule Out COVID-19 12/27/2023 12/27/2023 12/29/2023 1:37 PM CDT Assessment Noted Time PHQ-9 Depression Total Score: 7 08/08/19 21 7:03 AM CDT documented as of this encounter Care Teams Fresco Artist Relationship Specialty [place] [address] [place] [address] PCP - General Family Practice 07/11/14 [place] [address] [place] [address] Assigned PCP 12/16/11 Kerry Bernal RN Personal Advocate & Liaison (PAL) 01/08/19 07/10/23 Ravi Barillas DPM [address] [facility] [address] [place] [address] Assigned Musculoskeletal Provider 03/23/20 10/30/21 Christy Campuzano PA-C [address] [place] [address] 298482 Referring Physician Family Medicine 04/22/20 Hans Cannon MD [address] [place] [address] 120892 Resident Pulmonary Disease 04/22/20 Mitra Kendall, [facility] Lead Employee Health Rn Primary Care - CC 01/08/1901/12 Burt Jovel MD Internal Medicine 05/08/20 12/13/23 Estella Hassan, [facility] [address] [facility] [place], [place] [phone] Pharmacist Pharmacist 05/26/20 Reji Chavez MD [address] [place] [phone] Assigned Heart and Vascular Provider 05/18/20 10/30/21 Elaina Moreno MD [address] [place] [address] 793255 Assigned Surgical Provider 05/18/20 11/19/22 Elaina Moreno MD 909 [place] [address] Cardiovascular & Thoracic Surgery 08/06/20 Kelsi Hassan MD 420 [facility] 284 [place] [address] Assigned Pulmonology Provider 06/28/21 02/05/22 John Webb MD [address] 316235 Cardiovascular Disease 08/25/21 John Webb MD [address] 312365 Cardiovascular Disease 08/25/21 Estella Hassan, [facility] [address] [place] [address] Assigned MTM Pharmacist 09/05/21 Nav Hughes MD [address] [address] Assigned Heart and Vascular Provider 10/31/21 09/03/23 Cassandra Mendoza MD ORTHOPAEDIC SURGERY [address] [address] Assigned Musculoskeletal Provider 10/31/21 08/13/22 Estella Hassan, [facility] [address] [place] [address] Assigned MTM Pharmacist 12/09/21 Mitra Kendall, VIDEO SYSTEM REPAIRER Lead Employee Health Rn Primary Care - CC 01/26/2210/28 Lindsay Carey OD [address] [facility] [place] [address] Ophthalmology 01/29/22 Ravi Brownlee MD [address] [place] [address] 558665 Assigned Pulmonology Provider 02/06/22 09/03/23 Arabella Fishman MA Financial Resource Worker 02/22/22 02/23/22 Richard Kam MD [address] [place] [address] [phone] Assigned Musculoskeletal Provider 08/14/22 [facility] [address] [facility] [place] [place] [phone] Pharmacist Pharmacist 11/22/22 01/09/23 [place] [address] 977607 Assigned Neuroscience Provider 01/01/23 Rosemarie Mcdowell, RN Joy Loader Diabetes Education 03/17/23 Ravi Brownlee MD [address] [place] [address] 965805 Assigned Heart and Vascular Provider 09/04/23 01/03/24 Mitra Kendall LSW Lead Employee Health Rn Primary Care - CC 12/12/23 Lizet Mann PA-C 717 [place], [place] 476945 Assigned Cancer Care Provider 01/04/24 Ravi Brownlee MD [address] [facility] 276 [place], [place] 756045 Assigned Pulmonology Provider 01/04/24 Nav Hughes MD [address] [place] 0[address] Assigned Heart and Vascular Provider 01/04/24 Manuel Ahn OD 6341 [facility] [place] 0[address]22 Leaf Tinner 01/05/24 Arabella Fishman MA Financial Resource Worker 01/06/24 Thalia Charles [facility] Pharmacist Pharmacy 01/26/24 documented as of this encounter
--- OUTSIDE RECORDS SUMMARY | 2024-01-31 20:09 | XMS_ITS | Encounter Summary ---
Author Organization [facility] Address [address] [place] [address] Care Team Providers Care X Ray Tech Name Role Phone Va Glez MD Primary Care Provider Va Glez MD Unavailable Kerry Bernal RN Unavailable [phone] Ravi Barillas DPM Unavailable [phone] Christy Campuzano PA-C Unavailable Hans Cannon MD Unavailable Mitra Kendall JAVA TECHNICAL ARCHITECT Unavailable Burt Jovel MD Unavailable [phone] Estella Hassan [facility] Unavailable [phone] Reji Chavez MD Unavailable [phone] Josh Cordero MD, Madhuri Unavailable [phone] Josh Cordero MD, Madhuri Unavailable [phone] Kelsi Hassan MD Unavailable [phone] John Webb MD Unavailable [phone] John Webb MD Unavailable Estella Hassan [facility] Unavailable [phone] Nav Hughes MD Unavailable [phone] Cassandra Mendoza MD Unavailable [phone] Estella Hassan [facility] Unavailable [phone] Mitra Kendall JAVA TECHNICAL ARCHITECT Unavailable Sourav Careyistine Kenzie OD Unavailable Ravi Brownlee MD Unavailable [phone] Arabella Fishman MA Unavailable [phone] Richard Kam MD Unavailable Marisol Patel [facility] Unavailable Gaby Vila DO Unavailable [phone] Rosemarie Mcdowell RN Unavailable Ravi Brownlee MD Unavailable Mitra Kendall JAVA TECHNICAL ARCHITECT Unavailable Lizet Mann PA-C Unavailable Ravi Brownlee MD Unavailable Nav Hughes MD Unavailable [phone] Manuel Ahn OD Unavailable [phone] Arabella Fishman MA Unavailable [phone] Thalia Charles [facility] Unavailable Unavailable Encounter Details Date Type Department Care Team (Late st Contact Info) Description 08/20/2020 MyC Medical Advice [facility] Registration [facility] Social History Tobacco Use Types [...] and Family Not on file 05/31/2019 Attends [employer]enomin[employer] Services Not on file 05/30 Active Member [...] points; Administer PHQ-9 if positive 1 08/06/2020 [facility] of Occupat ional Health - Occupational Stress [...] on file Legal 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 MANUFACTURING TEAM MEMBER Gender Identity Not on file Sexual Orientation Not on file Occupation Industry Job Start Date Job End Date Not on file Not on file Not on file Not on file COVID-19 Exposure Response Date Recorded In the last month, have you been in contact with someone who was confirmed or suspected to have Coronavirus / COVID-19? No / Unsure 08/18/2020 2:22 PM CDT documented as of this encounter Plan of Treatment Upcoming Encounters Date Type Department Care Team (Late st Contact Info) Description 02/01/2024 3:00 PM MANUFACTURING TEAM MEMBER Office Visit [facility] 6341 [place] [address] Manuel Ahn, [address] [place] [address] 02/02/2024 1:30 PM MANUFACTURING TEAM MEMBER Therapy Visit [facility] [address] [facility] [address] [place] [phone] Alicja Roldan, OT 909 [place] [address] 02/05/2024 8:00 PM MANUFACTURING TEAM MEMBER Therapy Visit [facility] [place] [address] [place] [address] 103 [place] [phone] 02/13/2024 4:30 PM MANUFACTURING TEAM MEMBER Oncology Visit [facility] 909 [place] [phone] Marian Agustin, [place] [employer] 420 [facility] 207 [place] [address] 03/01/2024 7:00 AM MANUFACTURING TEAM MEMBER Office Visit [facility] [address] [place] [phone] Estella Hassan, [facility] [address] [place] [address] 03/23/2024 2:00 PM MANUFACTURING TEAM MEMBER Office Visit [facility] [address] [place] [address] Lizet Mann PA-C 717 [place] [address] 03/29/2024 3:30 PM MANUFACTURING TEAM MEMBER Office Visit [facility] [address] [facility] [address] [place] [address] Hakeem Chacko MBBS 2945 [place] [address] 05/03/2024 3:00 PM MANUFACTURING TEAM MEMBER Office Visit [facility] [address] [address] Gaurav Valenzuela, NURSE OFFICE [facility] [address] [place] [address] 05/22/2024 10:30 AM CDT Office Visit [address] [phone] Estella Hassan, [facility] [address] [place] [address] 05/22/2024 11:30 AM CDT Office Visit [facility] [address] [place] [phone] [place] [address] [place], [place] [phone] documented as of this encounter Visit Diagnoses Not on filedocumented in this encounter Additional Health Concerns Infection Onset Date Last Indicated Resolved Time Rule Out COVID-19 06/22/2021 06/22/2021 06/23/2021 8:58 PM CDT Rule Out COVID-19 01/22/2022 01/22/2022 01/24/2022 1:05 PM MANUFACTURING TEAM MEMBER Rule Out COVID-19 01/25/2022 01/25/2022 01/25/2022 5:21 AM MANUFACTURING TEAM MEMBER Influenza 01/25/2022 01/25/2022 02/01/2022 11:4 1 PM MANUFACTURING TEAM MEMBER Rule Out COVID-19 07/29/2022 07/29/2022 07/31/2022 11:17 AM CDT Rule Out COVID-19 03/23/2023 03/23/2023 03/23/2023 6:30 PM MANUFACTURING TEAM MEMBER COVID-19 03/23/2023 03/23/2023 04/13/2023 11:4 0 PM MANUFACTURING TEAM MEMBER Rule Out COVID-19 06/05/2023 06/05/2023 06/05/2023 5:53 PM CDT Rule Out COVID-19 11/06/2023 11/06/2023 11/06/2023 11:05 PM CDT Rule Out COVID-19 11/20/2023 11/20/2023 11/20/2023 6:43 PM CDT Rule Out COVID-19 12/27/2023 12/27/2023 12/29/2023 1:37 PM CDT Assessment Noted Time PHQ-9 Depression Total Score: 7 08/08/19 7:03 AM CDT documented as of this encounter Care Teams X Ray Tech Relationship Specialty [place] [address] [place] [address] PCP - General Family Practice 07/11/14 [place] [address] [place] [address] Assigned PCP 12/16/11 Kerry Bernal RN Personal Advocate & Liaison (PAL) 01/08/19 07/10/23 Ravi Barillas DPM [address] [address] Assigned Musculoskeletal Provider 03/23/20 10/30/21 Christy Campuzano PA-C [address] [place] [address] Referring Physician Family Medicine 04/22/20 Hans Cannon MD [address] [place] [address] Resident Pulmonary Disease 04/22/20 Mitra Kendall, [facility] Lead Store Receiver Primary Care - CC 01/08/1901/12 Burt Jovel MD Internal Medicine 05/08/20 12/13/23 Estella Hassan, [facility] [address] [place], [place] 2567[address] Pharmacist Pharmacist 05/26/20 Reji Chavez MD [address] [place] [phone] Assigned Heart and Vascular Provider 05/18/20 10/30/21 Elaina Moreno MD [address] [place] [address] [phone] Assigned Surgical Provider 05/18/20 11/19/22 Elaina Moreno MD [address] [place] [address] 007205 Cardiovascular & Thoracic Surgery 08/06/20 Kelsi Hassan MD [address] [place] [address] 284 [place] [address] Assigned Pulmonology Provider 06/28/21 02/05/22 John Webb MD [address] 453145 Cardiovascular Disease 08/25/21 John Webb MD [address] 806535 Cardiovascular Disease 08/25/21 Estella Hassan, [facility] [address] [place] [address] Assigned MTM Pharmacist 09/05/21 Nav Hughes MD [address] [place] 975395 Assigned Heart and Vascular Provider 10/31/21 09/03/23 Cassandra Mendoza MD ORTHOPAEDIC SURGERY [facility] [address] [address] Assigned Musculoskeletal Provider 10/31/21 08/13/22 Estella Hassan, [facility]3 [place], [place] 902376 Assigned MTM Pharmacist 12/09/21 Mitra Kendall, JAVA TECHNICAL ARCHITECT Lead Store Receiver Primary Care - CC 01/26/2210/28 Lindsay Carey OD [address] [place] [address] Ophthalmology 01/29/22 Ravi Brownlee MD [address] [place] [address] Assigned Pulmonology Provider 02/06/22 09/03/23 Arabella Fishman MA Financial Resource Worker 02/22/22 02/23/22 Richard Kam MD [address] [place] [address] [id number] Assigned Musculoskeletal Provider 08/14/22 Marisol Patel, [facility] [address] [facility] [address] [place] [phone] Pharmacist Pharmacist 11/22/22 01/09/23 [place] [address] 609397 Assigned Neuroscience Provider 01/01/23 Rosemarie Mcdowell, RN Jack Frame Tender Diabetes Education 03/17/23 Ravi Brownlee MD [address] [place] [address] Assigned Heart and Vascular Provider 09/04/23 01/03/24 Mitra Kendall, JAVA TECHNICAL ARCHITECT Lead Store Receiver Primary Care - CC 12/12/23 Lizet Mann PA-C 717 [place], [place] 896665 Assigned Cancer Care Provider 01/04/24 Ravi Brownlee MD 420 [facility] 276 [place], [place] 8[address] Assigned Pulmonology Provider 01/04/24 Nav Hughes MD [address] [place] 84[address]75 Assigned Heart and Vascular Provider 01/04/24 Manuel Ahn OD 6341 [facility] [address] 426992 Ski Guide 01/05/24 Arabella Fishman MA Financial Resource Worker 01/06/24 Thalia Charles [facility] Pharmacist Pharmacy 01/26/24 documented as of this encounter
--- OUTSIDE RECORDS SUMMARY | 2024-01-31 20:09 | XMS_ITS | Encounter Summary ---
Author Organization [facility] Address [address] [place] [address] Care Team Providers Care Casing Crew Name Role Phone Va Glez MD Primary Care Provider Va Glez MD Unavailable Kerry Bernal RN Unavailable [phone] Ravi Barillas DPM Unavailable [phone] Christy Campuzano PA-C Unavailable Hans Cannon MD Unavailable Mitra Kendall CATECHIST Unavailable Burt Jovel MD Unavailable Estella Hassan [facility] Unavailable Reji Chavez MD Unavailable Josh Cordero MD, Madhuri Unavailable [phone] Josh Cordero MD, Madhuri Unavailable [phone] Kelsi Hassan MD Unavailable [phone] John Webb MD Unavailable [phone] John Webb MD Unavailable Estella Hassan [facility] Unavailable Nav Hughes MD Unavailable [phone] Cassandra Mendoza MD Unavailable Estella Hassan H Unavailable Mitra Kendall CATECHIST Unavailable Lindsay Carey OD Unavailable Ravi Brownlee MD Unavailable [phone] Arabella Fishman MA Unavailable [phone] Richard Kam MD Unavailable Marisol Patel [facility] Unavailable Gaby Vila DO Unavailable Rosemarie Mcdowell RN Unavailable [phone] Ravi Brownlee MD Unavailable Mitra Kendall CATECHIST Unavailable Lizet Mann PA-C Unavailable [phone] Ravi Brownlee MD Unavailable Nav Hughes MD Unavailable [phone] Manuel Ahn OD Unavailable Arabella Fishman MA Unavailable [phone] Thalia Charles [facility] Unavailable Unavailable Encounter Details Date Type Department Care Team (Late st Contact Info) Description 08/29/2020 [facility] [address] [facility] [place] [address] Marian Agustin APRN [facility] [address] [facility] 207 [place] [address] Social History Tobacco Use Types [...] and Family Not on file 05/31/2019 Attends Sabian[employer] Services Not on file 05/30 Active Member [...] points; Administer PHQ-9 if positive 1 08/06/2020 [facility] of Occupat ional Health - [...] on file Legal 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 DOCTOR OF PODIATRIC MEDICINE Gender Identity Not on file Sexual Orientation Not on file Occupation Industry Job Start Date Job End Date Not on file Not on file Not on file Not on file COVID-19 Exposure Response Date Recorded In the last month, have you been in contact with someone who was confirmed or suspected to have Coronavirus / COVID-19? No / Unsure 08/29/2020 9:53 AM CDT documented as of this encounter Plan of Treatment Upcoming Encounters Date Type Department Care Team (Late st Contact Info) Description 02/01/2024 3:00 PM DOCTOR OF PODIATRIC MEDICINE Office Visit [facility] [address] [place] [phone] Manuel Ahn, [address]341 [place] [address] 02/02/2024 1:30 PM DOCTOR OF PODIATRIC MEDICINE Therapy Visit [facility] [address] [facility] 300 [place] [phone] Alicja Roldan, BETY 909 [place] [address] 02/05/2024 8:00 PM DOCTOR OF PODIATRIC MEDICINE Therapy Visit [facility] [place] [address] [place] [address] 103 [place] [phone] 02/13/2024 4:30 PM DOCTOR OF PODIATRIC MEDICINE Oncology Visit [facility] 909 [place] [phone] Marian Agustin, NESSA QUESTIONED DOCUMENTS EXAMINER [address] [facility] 207 [place] [address] 03/01/2024 7:00 AM DOCTOR OF PODIATRIC MEDICINE Office Visit [address] [phone] Estella Hassan, [facility] 3033 [place] [address] 03/23/2024 2:00 PM DOCTOR OF PODIATRIC MEDICINE Office Visit [facility] [address] [place] [address] [place] [address] Lizet Mann PA-C [address] [place] [address] 03/29/2024 3:30 PM DOCTOR OF PODIATRIC MEDICINE Office Visit [facility] 2945 [facility] 200 [place] [phone] Hakeem Chacko MBBS 2945 [place] [address] 05/03/2024 3:00 PM DOCTOR OF PODIATRIC MEDICINE Office Visit [facility] [address] [place] [phone] Gaurav Valenzuela, FINANCIAL PROJECT MANAGER [address] [address] 05/22/2024 10:30 AM CDT Office Visit [address] [phone] Estella Hassan, [place] 706143 [place] [address] 05/22/2024 11:30 AM CDT Office Visit [address] [phone] [place] [address] [place], [place] [phone] documented as of this encounter Visit Diagnoses Not on filedocumented in this encounter Additional Health Concerns Infection Onset Date Last Indicated Resolved Time Rule Out COVID-19 06/22/2021 06/22/2021 06/23/2021 8:58 PM CDT Rule Out COVID-19 01/22/2022 01/22/2022 01/24/2022 1:05 PM DOCTOR OF PODIATRIC MEDICINE Rule Out COVID-19 01/25/2022 01/25/2022 01/25/2022 5:21 AM DOCTOR OF PODIATRIC MEDICINE Influenza 01/25/2022 01/25/2022 02/01/2022 11:4 1 PM DOCTOR OF PODIATRIC MEDICINE Rule Out COVID-19 07/29/2022 07/29/2022 07/31/2022 11:17 AM CDT Rule Out COVID-19 03/23/2023 03/23/2023 03/23/2023 6:30 PM DOCTOR OF PODIATRIC MEDICINE COVID-19 03/23/2023 03/23/2023 04/13/2023 11:4 0 PM DOCTOR OF PODIATRIC MEDICINE Rule Out COVID-19 06/05/2023 06/05/2023 06/05/2023 5:53 PM CDT Rule Out COVID-19 11/06/2023 11/06/2023 11/06/2023 11:05 PM CDT Rule Out COVID-19 11/20/2023 11/20/2023 11/20/2023 6:43 PM CDT Rule Out COVID-19 12/27/2023 12/27/2023 12/29/2023 1:37 PM CDT Assessment Noted Time PHQ-9 Depression Total Score: 7 08/08/19 21 7:03 AM CDT documented as of this encounter Care Teams Casing Crew Relationship Specialty [place] [address] [place] [address] PCP - General Family Practice 07/11/14 [place] [address] [place] [address] Assigned PCP 12/16/11 Kerry Bernal RN Personal Advocate & Liaison (PAL) 01/08/19 07/10/23 Ravi Barillas DPM [address] [facility] [address] [place] [address] Assigned Musculoskeletal Provider 03/23/20 10/30/21 Christy Campuzano PA-C [address] [place] [address] 966972 Referring Physician Family Medicine 04/22/20 Hans Cannon MD [address] [place] [address] 301952 Resident Pulmonary Disease 04/22/20 Mitra Kendall, [facility] Lead Moto Mix Operator Primary Care - CC 01/08/1901/12 Burt Jovel MD Internal Medicine 05/08/20 12/13/23 Estella Hassan, [facility] [address] [place], [place] [address] Pharmacist Pharmacist 05/26/20 Reji Chavez MD [address] [place] [phone] Assigned Heart and Vascular Provider 05/18/20 10/30/21 Elaina Moreno MD [address] [place] [address] [id number] Assigned Surgical Provider 05/18/20 11/19/22 Elaina Moreno MD 909 [place] [address] Cardiovascular & Thoracic Surgery 08/06/20 Kelsi Hassan MD 420 [facility] 284 [place] [address] Assigned Pulmonology Provider 06/28/21 02/05/22 John Webb MD [address] [id number] Cardiovascular Disease 08/25/21 John Webb MD [address] 096515 Cardiovascular Disease 08/25/21 Estella Hassan, [facility] 3033 [place] [address] Assigned MTM Pharmacist 09/05/21 Nav Hughes MD [address] [place] 467395 Assigned Heart and Vascular Provider 10/31/21 09/03/23 Cassandra Mendoza MD ORTHOPAEDIC SURGERY [address] [phone] Assigned Musculoskeletal Provider 10/31/21 08/13/22 Estella Hassan, [facility] [address] [place] [address] Assigned MTM Pharmacist 12/09/21 Mitra Kendall, CATECHIST Lead Moto Mix Operator Primary Care - CC 01/26/2210/28 Lindsay Carey OD [address] [facility] [place] [address] Ophthalmology 01/29/22 Ravi Brownlee MD [address] [place] [address] [phone] Assigned Pulmonology Provider 02/06/22 09/03/23 Arabella Fishman MA Financial Resource Worker 02/22/22 02/23/22 Richard Kam MD [address] [place] [address] [phone] Assigned Musculoskeletal Provider 08/14/22 [facility] [address] [facility] [address] [place] [phone] Pharmacist Pharmacist 11/22/22 01/09/23 [place] [address] 695277 Assigned Neuroscience Provider 01/01/23 Rosemarie Mcdowell, RN Marriage And Family Counselor Diabetes Education 03/17/23 Ravi Brownlee MD [address] [place] [address] [phone] Assigned Heart and Vascular Provider 09/04/23 01/03/24 Mitra Kendall LSW Lead Moto Mix Operator Primary Care - CC 12/12/23 Lizet Mann PA-C 717 [place], [place] 174795 Assigned Cancer Care Provider 01/04/24 Ravi Brownlee MD 420 [facility] 276 [place], [place] 748555 Assigned Pulmonology Provider 01/04/24 Nav Hughes MD [address] [place] [address] [place] 976405 Assigned Heart and Vascular Provider 01/04/24 Manuel Ahn OD 6341 [facility] [place] [address] Technical Sourcing Recruiter 01/05/24 Arabella Fishman MA Financial Resource Worker 01/06/24 Thalia Charles [facility] Pharmacist Pharmacy 01/26/24 documented as of this encounter
--- OUTSIDE RECORDS SUMMARY | 2024-01-31 20:09 | XMS_ITS | Encounter Summary ---
Author Organization [place] Address [address] [place] [address] Care Team Providers Care Permit Agent Name Role Phone Va Glez MD Primary Care Provider [phone] Va Glez MD Unavailable Kerry Bernal RN Unavailable [phone] Ravi Barillas DPM Unavailable [phone] Christy Campuzano PA-C Unavailable Hans Cannon MD Unavailable [phone] Mitra Kendall PATHOLOGY COLLECTOR Unavailable Burt Jovel MD Unavailable Estella Hassan [facility] Unavailable Reji Chavez MD Unavailable [phone] Josh Cordero MD, Madhuri Unavailable [phone] Josh Cordero MD, Madhuri Unavailable [phone] Kelsi Hassan MD Unavailable [phone] John Webb MD Unavailable John Webb MD Unavailable Estella Hassan [facility] Unavailable Nav Hughes MD Unavailable [phone] Cassandra Mendoza MD Unavailable Estella Hassan [facility] Unavailable Mitra Kendall PATHOLOGY COLLECTOR Unavailable Lindsay Carey OD Unavailable WashingtonRavi bajwa MD Unavailable Arabella Fishman MA Unavailable [phone] Richard Kma MD Unavailable Marisol Patel [facility] Unavailable [phone] Gaby Vila DO Unavailable Rosemarie Mcdowell RN Unavailable [phone] Ravi Brownlee MD Unavailable Mitra Kendall PATHOLOGY COLLECTOR Unavailable [phone] Lizet Mann PA-C Unavailable [phone] Ravi Brownlee MD Unavailable Nav Hughes MD Unavailable [phone] Manuel Ahn OD Unavailable [phone] Arabella Fishman MA Unavailable [phone] Thalia Charles [facility] Unavailable Unavailable Encounter Details Date Type Department Care Team (Late st Contact Info) Description 08/29/2020 [facility] Medical Advice [address] [address] Estella Hassan, [facility] [address] [place], [place] 8[address] Moderate persistent asthma without complication Social History [...] points; Administer PHQ-9 if positive 1 08/06/2020 [facility] - Occupational [...] on file Legal 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 TAPERING MACHINE OPERATOR Gender Identity Not on file [...] AM CDT documented as of this encounter Miscellaneous Notes * Telephone Encounter - John Medina RPH - 09/05/2020 8:06 AM CDT Patient prefers ProAir inhaler. Asks that this be sent to [facility] in [place]. Plan: 1. Refilled albuterol HFA. All changes were made via collaborative practice agreement with Va Glez. Tino Medina, PharmD, BCACP Medication Therapy Management Pharmacist Pager: [phone] documented in this encounter Plan of Treatment Upcoming Encounters Date Type Department Care Team (Late st Contact Info) Description 02/01/2024 3:00 PM TAPERING MACHINE OPERATOR Office Visit [address] [phone] Manuel Ahn, [address] [place] [address] 02/02/2024 1:30 PM TAPERING MACHINE OPERATOR Therapy Visit [facility] [address] [facility] [address] [place] [phone] Alicja Roldan OT 909 [place], [place] 191585 02/05/2024 8:00 PM TAPERING MACHINE OPERATOR Therapy Visit [facility] [place] 6363 [facility] 103 [place] [address] 02/13/2024 4:30 PM TAPERING MACHINE OPERATOR Oncology [facility] 909 [facility] [place] [phone] Marian Agustin APRN CERTIFIED GREEN BUILDING ENGINEER 420 [facility] [address] [place] [address] 03/01/2024 7:00 AM TAPERING MACHINE OPERATOR Office Visit [facility] [address] [place] [phone] Estella Hassan, [facility] [address] [place] [address] 03/23/2024 2:00 PM TAPERING MACHINE OPERATOR Office Visit [facility] [address] [place] [address] [place] [address] Lizet Mann PA-C 717 [facility] [place] [address] 03/29/2024 3:30 PM TAPERING MACHINE OPERATOR Office Visit [facility] 2945 [facility] [address] [place] [phone] Hakeem Chacko MBBS 2945 [place] [address] 05/03/2024 3:00 PM TAPERING MACHINE OPERATOR Office Visit [facility] [address] [place] [phone] Gaurav Valenzuela, [facility] [address] [place] [address] 106 [place] [address] 05/22/2024 10:30 AM CDT Office Visit [facility] [address] [place] [phone] Estella Hassan, [facility] [address] [place] [address] 05/22/2024 11:30 AM CDT Office Visit [facility] [address] [place] [phone] [place] [address] [place] [address] documented as of this encounter Visit Diagnoses Diagnosis Moderate persistent asthma without complication Unspecified asthma documented in this encounter Additional Health Concerns Infection Onset Date Last Indicated Resolved Time Rule Out COVID-19 06/22/2021 06/22/2021 06/23/2021 8:58 PM CDT Rule Out COVID-19 01/22/2022 01/22/2022 01/24/2022 1:05 PM TAPERING MACHINE OPERATOR Rule Out COVID-19 01/25/2022 01/25/2022 01/25/2022 5:21 AM TAPERING MACHINE OPERATOR Influenza 01/25/2022 01/25/2022 02/01/2022 11:4 1 PM TAPERING MACHINE OPERATOR Rule Out COVID-19 07/29/2022 07/29/2022 07/31/2022 11:17 AM CDT Rule Out COVID-19 03/23/2023 03/23/2023 03/23/2023 6:30 PM TAPERING MACHINE OPERATOR COVID-19 03/23/2023 03/23/2023 04/13/2023 11:4 0 PM TAPERING MACHINE OPERATOR Rule Out COVID-19 06/05/2023 06/05/2023 06/05/2023 5:53 PM CDT Rule Out COVID-19 11/06/2023 11/06/2023 11/06/2023 11:05 PM CDT Rule Out COVID-19 11/20/2023 11/20/2023 11/20/2023 6:43 PM CDT Rule Out COVID-19 12/27/2023 12/27/2023 12/29/2023 1:37 PM CDT Assessment Noted Time PHQ-9 Depression Total Score: 7 08/08/19 21 7:03 AM CDT documented as of this encounter Care Teams Permit Agent Relationship Specialty [place] [address] [place] [address] PCP - General Family Practice 07/11/14 [place] [address] [place] [address] Assigned PCP 12/16/11 Kerry Bernal, INOCENCIO Personal Advocate & Liaison (PAL) 01/08/19 07/10/23 Ravi Barillas DPM [address] [facility] [address] [place], [place] [address] Assigned Musculoskeletal Provider 03/23/20 10/30/21 Christy Campuzano PA-C [address] [place] [address] 120182 Referring Physician Family Medicine 04/22/20 Hans Cannon MD [address] [place] [address] Resident Pulmonary Disease 04/22/20 Mitra Kendall, PATHOLOGY COLLECTOR Lead Electric Freight Car Operator Primary Care - CC 01/08/1901/12 Burt Jovel MD Internal Medicine 05/08/20 12/13/23 Estella Hassan, [facility] [address] [place], [place] 8[address] Pharmacist Pharmacist 05/26/20 Reji Chavez MD [address] [place] [phone] Assigned Heart and Vascular Provider 05/18/20 10/30/21 Elaina Moreno MD [address] [place] [address] Assigned Surgical Provider 05/18/20 11/19/22 Elaina Moreno MD [address] [place] [address] Cardiovascular & Thoracic Surgery 08/06/20 Kelsi Hassan MD [address] [place] [address] [address] [place] [address] Assigned Pulmonology Provider 06/28/21 02/05/22 John Webb MD [address] [id number] Cardiovascular Disease 08/25/21 John Webb MD [address] [address] Cardiovascular Disease 08/25/21 Estella Hassan, [facility] [address] [place] [address] Assigned MTM Pharmacist 09/05/21 Nav Hughes MD [address] [place] [address] Assigned Heart and Vascular Provider 10/31/21 09/03/23 Cassandra Mendoza MD ORTHOPAEDIC SURGERY [address] [address] Assigned Musculoskeletal Provider 10/31/21 08/13/22 Estella Hassan, [facility] [address] [place] [address] Assigned MTM Pharmacist 12/09/21 Mitra Kendall, [facility] Lead Electric Freight Car Operator Primary Care - CC 01/26/2210/28 [place] [address] [place] [address] [place] [address] Ophthalmology 01/29/22 Ravi Brownlee MD [address] [place] [address] [address] [place], [place] [address] Assigned Pulmonology Provider 02/06/22 09/03/23 Arabella Fishman MA Financial Resource Worker 02/22/22 02/23/22 Richard Kam MD 500 [place] [address] Assigned Musculoskeletal Provider 08/14/22 [facility] [address] [place] [address] Pharmacist Pharmacist 11/22/22 01/09/23 [place] [address] [address] Assigned Neuroscience Provider 01/01/23 Rosemarie Mcdowell, RN Head Up Operator Diabetes Education 03/17/23 Ravi Brownlee MD [address] [place] [address] Assigned Heart and Vascular Provider 09/04/23 01/03/24 Mitra Kendall, [facility] Lead Electric Freight Car Operator Primary Care - CC 12/12/23 Lizet Mann PA-C [address] [place] [address] Assigned Cancer Care Provider 01/04/24 Ravi Brownlee MD [address] [place] [address] Assigned Pulmonology Provider 01/04/24 Nav Hughes MD 6405 [facility] [place] [address] Assigned Heart and Vascular Provider 01/04/24 Manuel Ahn OD [address] [place] [address] Legal Project Manager 01/05/24 Arabella Fishman MA Financial Resource Worker 01/06/24 Thalia Charles [facility] Pharmacist Pharmacy 01/26/24 documented as of this encounter
--- OUTSIDE RECORDS SUMMARY | 2024-01-31 20:09 | XMS_ITS | Encounter Summary ---
Author Organization [place] Address [address] [place] [address] Care Team Providers Care Vehicle Operator Name Role Phone Va Glez MD Primary Care Provider Va Glez MD Unavailable Kerry Bernal RN Unavailable [phone] Ravi Barillas DPM Unavailable [phone] Christy Campuzano PA-C Unavailable Hans Cannon MD Unavailable Mitra Kendall THEATER SET PRODUCTION DESIGNER Unavailable Burt Jovel MD Unavailable [phone] Estella Hassan [facility] Unavailable [phone] Reji Chavez MD Unavailable [phone] Josh Crodero MD, Madhuri Unavailable [phone] Josh Cordero MD, Madhuri Unavailable [phone] Kelsi Hassan MD Unavailable [phone] John Webb MD Unavailable John Webb MD Unavailable [phone] Estella Hassan [facility] Unavailable Nav Hughes MD Unavailable [phone] Cassandra Mendoza MD Unavailable Estella Hassan [facility] Unavailable [phone] Mitra Kendall THEATER SET PRODUCTION DESIGNER Unavailable Lindsay Carey OD Unavailable [place]Ravi bajwa MD Unavailable [phone] Arabella Fishman MA Unavailable [phone] Richard Kam MD Unavailable Marisol Patel [facility] Unavailable Gaby Vila DO Unavailable Rosemarie Mcdowell RN Unavailable Ravi Brownlee MD Unavailable Mitra Kendall THEATER SET PRODUCTION DESIGNER Unavailable Lizet Mann PA-C Unavailable Ravi Brownlee MD Unavailable Nav Hughes MD Unavailable [phone] Manuel Ahn OD Unavailable Arabella Fishman MA Unavailable [phone] Thalia Charles [facility] Unavailable Unavailable Encounter Details Date Type Department Care Team (Late st Contact Info) Description 08/28/2020 [facility] [address] [address] Estella Hassan, [facility] [address] [place] [address] Social History Tobacco Use Types Packs/Day Years [...] and Family Not on file 05/31/2019 Attends Taoism Services Not on file 05/30 Active Member [...] points; Administer PHQ-9 if positive 1 08/06/2020 [facility] - Occupational [...] on file Legal 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 TELETYPE OR VARITYPE KEYBOARD OPERATOR Gender Identity Not on file Sexual [...] st Contact Info) Description 02/01/2024 3:00 PM TELETYPE OR VARITYPE KEYBOARD OPERATOR Office Visit [facility] 6[address] [place] [phone] [facility] [address] [place] [address] 02/02/2024 1:30 PM TELETYPE OR VARITYPE KEYBOARD OPERATOR Therapy Visit [facility] [place] [address] [facility] 300 [place] [phone] Alicja Roldan OT 909 [place] [address] 02/05/2024 8:00 PM TELETYPE OR VARITYPE KEYBOARD OPERATOR Therapy Visit [facility] [address] [place] [phone] 02/13/2024 4:30 PM TELETYPE OR VARITYPE KEYBOARD OPERATOR Oncology Visit [facility] 909 [place] [phone] Marian Agustin APRN [facility] [address] [place] [address] [facility] 207 [place] [address] 03/01/2024 7:00 AM TELETYPE OR VARITYPE KEYBOARD OPERATOR Office Visit [address] [phone] Estella Hassan, [facility] [address] [place] [address] 03/23/2024 2:00 PM TELETYPE OR VARITYPE KEYBOARD OPERATOR Office Visit [facility] [address] [place] [address] [place] [address] Lizet Mann PA-C [address] [place] [address] 03/29/2024 3:30 PM TELETYPE OR VARITYPE KEYBOARD OPERATOR Office Visit [facility] 2945 [facility] 200 [place] [phone] Hakeem Chacko MBBS 2945 [place] [address] 05/03/2024 3:00 PM TELETYPE OR VARITYPE KEYBOARD OPERATOR Office [facility] [address] [place] [phone] Gaurav Valenzuela, FULL STACK NET DEVELOPER [address] 164074 05/22/2024 10:30 AM CDT Office Visit [address] [phone] Estella Hassan, [place] [address]99[address] [place] [address] 05/22/2024 11:30 AM CDT Office Visit [address] [phone] Va Glez MD [address] [place] [address] [phone] documented as of this encounter Visit Diagnoses Not on filedocumented in this encounter Additional Health Concerns Infection Onset Date Last Indicated Resolved Time Rule Out COVID-19 06/22/2021 06/22/2021 06/23/2021 8:58 PM CDT Rule Out COVID-19 01/22/2022 01/22/2022 01/24/2022 1:05 PM TELETYPE OR VARITYPE KEYBOARD OPERATOR Rule Out COVID-19 01/25/2022 01/25/2022 01/25/2022 5:21 AM TELETYPE OR VARITYPE KEYBOARD OPERATOR Influenza 01/25/2022 01/25/2022 02/01/2022 11:4 1 PM TELETYPE OR VARITYPE KEYBOARD OPERATOR Rule Out COVID-19 07/29/2022 07/29/2022 07/31/2022 11:17 AM CDT Rule Out COVID-19 03/23/2023 03/23/2023 03/23/2023 6:30 PM TELETYPE OR VARITYPE KEYBOARD OPERATOR COVID-19 03/23/2023 03/23/2023 04/13/2023 11:4 0 PM TELETYPE OR VARITYPE KEYBOARD OPERATOR Rule Out COVID-19 06/05/2023 06/05/2023 06/05/2023 5:53 PM CDT Rule Out COVID-19 11/06/2023 11/06/2023 11/06/2023 11:05 PM CDT Rule Out COVID-19 11/20/2023 11/20/2023 11/20/2023 6:43 PM CDT Rule Out COVID-19 12/27/2023 12/27/2023 12/29/2023 1:37 PM CDT Assessment Noted Time PHQ-9 Depression Total Score: 7 08/08/19 21 7:03 AM CDT documented as of this encounter Care Teams Vehicle Operator Relationship Specialty [place] [address] [place] [address] PCP - General Family Practice 07/11/14 [place] [address] [place] [address] Assigned PCP 12/16/11 Kerry Bernal RN Personal Advocate & Liaison (PAL) 01/08/19 07/10/23 Ravi Barillas DPM [address] [facility] [address] [place] [address] Assigned Musculoskeletal Provider 03/23/20 10/30/21 Christy Campuzano PA-C [address] [place] [address] 449362 Referring Physician Family Medicine 04/22/20 Hans Cannon MD [address] [place] [address] 785372 Resident Pulmonary Disease 04/22/20 Mitra Kendall, [facility] Lead Risk Control Product Liability Director Primary Care - CC 01/08/1901/12 Burt Jovel MD Internal Medicine 05/08/20 12/13/23 Estella Hassan, [facility] 3033 [facility] [place], [place] 15[address] Pharmacist Pharmacist 05/26/20 Reji Chavez MD [address] [place] [phone] Assigned Heart and Vascular Provider 05/18/20 10/30/21 Elaina Moreno MD [address] [place] [address] 530675 Assigned Surgical Provider 05/18/20 11/19/22 Elaina Moreno MD 909 [place] [address] Cardiovascular & Thoracic Surgery 08/06/20 Kelsi Hassan MD 420 [facility] 284 [place] [address] Assigned Pulmonology Provider 06/28/21 02/05/22 John Webb MD [address] 006225 Cardiovascular Disease 08/25/21 John Webb MD [address] 931505 Cardiovascular Disease 08/25/21 Estella Hassan, [facility] [address] [place] [address] Assigned MTM Pharmacist 09/05/21 Nav Hughes MD [address] [place] [address] Assigned Heart and Vascular Provider 10/31/21 09/03/23 Cassandra Mendoza MD ORTHOPAEDIC SURGERY [address] [address] Assigned Musculoskeletal Provider 10/31/21 08/13/22 Estella Hassan, [facility] [address] [place] [address] Assigned MTM Pharmacist 12/09/21 Mitra Kendall, THEATER SET PRODUCTION DESIGNER Lead Risk Control Product Liability Director Primary Care - CC 01/26/2210/28 Lindsay Carey OD 3305 [facility] [place] [address] Ophthalmology 01/29/22 Ravi Brownlee MD [address] [place] [address] 861025 Assigned Pulmonology Provider 02/06/22 09/03/23 Arabella Fishman MA Financial Resource Worker 02/22/22 02/23/22 Richard Kam MD [address] [place] [address] 967835 Assigned Musculoskeletal Provider 08/14/22 [facility] 1440 [facility] [place] [phone] Pharmacist Pharmacist 11/22/22 01/09/23 [place] [address] 344047 Assigned Neuroscience Provider 01/01/23 Rosemarie Mcdowell, RN Wall To Wall Carpet Installer Diabetes Education 03/17/23 Ravi Brownlee MD [address] [place] [address] 084185 Assigned Heart and Vascular Provider 09/04/23 01/03/24 Mitra Kendall LSW Lead Risk Control Product Liability Director Primary Care - CC 12/12/23 Lizet Mann PA-C 717 [place], [place] 278035 Assigned Cancer Care Provider 01/04/24 Ravi Brownlee MD 420 [facility] 276 [place], [place] 341255 Assigned Pulmonology Provider 01/04/24 Nav Hughes MD [address] [place] 44[address]35 Assigned Heart and Vascular Provider 01/04/24 Manuel Ahn OD 6341 [facility] [place] 292242 Panel Beater 01/05/24 Arabella Fishman MA Financial Resource Worker 01/06/24 Thalia Charles [facility] Pharmacist Pharmacy 01/26/24 documented as of this encounter
--- OUTSIDE RECORDS SUMMARY | 2024-01-31 20:09 | XMS_ITS | Encounter Summary ---
Author Organization [place] Address [address] [place] [address] Care Team Providers Care Logistics Officer Name Role Phone Va Glez MD Primary Care Provider Va Glez MD Unavailable Kerry Bernal RN Unavailable [phone] Ravi Barillas DPM Unavailable [phone] Christy Campuzano PA-C Unavailable [phone] Hans Cannon MD Unavailable Mitra Kendall BANK PRESIDENT Unavailable Burt Jovel MD Unavailable [phone] Estella Hassan [facility] Unavailable Reji Chavez MD Unavailable Josh Cordero MD, Madhuri Unavailable [phone] Josh Cordero MD, Madhuri Unavailable [phone] Kelsi Hassan MD Unavailable [phone] John Webb MD Unavailable John Webb MD Unavailable Estella Hassan [facility] Unavailable Nav Hughes MD Unavailable [phone] Cassandra Mendoza MD Unavailable Estella Hassan [facility] Unavailable Mitra Kendall BANK PRESIDENT Unavailable Lindsay Carey OD Unavailable Sunny SideRavi bajwa MD Unavailable [phone] Arabella Fishman MA Unavailable [phone] Richard Kam MD Unavailable Marisol Patel [facility] Unavailable Gaby Vila DO Unavailable Rosemarie Mcdowell RN Unavailable Ravi Brownlee MD Unavailable Mitra Kendall BANK PRESIDENT Unavailable [phone] Lizet Mann PA-C Unavailable [phone] Ravi Brownlee MD Unavailable Nav Hughes MD Unavailable [phone] Manuel Ahn OD Unavailable Arabella Fishman MA Unavailable [phone] Thalia Charles [facility] Unavailable Unavailable Encounter Details Date Type Department Care Team (Late st Contact Info) Description 10/05/2020 [facility] [place] [address] [address] Estella Hassan, [facility] [address] [place] [address] Social History Tobacco Use Types Packs/Day Years [...] and Family Not on file 05/31/2019 Attends Mosque Services Not on file 05/30 Active Member [...] points; Administer PHQ-9 if positive 1 08/06/2020 [facility] - [...] on file Legal 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 INDUSTRIAL ORGANIZATIONAL PSYCHOLOGIST Gender Identity Not on file Sexual [...] st Contact Info) Description 02/01/2024 3:00 PM INDUSTRIAL ORGANIZATIONAL PSYCHOLOGIST Office Visit [facility] [address] [place] [phone] [facility] [address] [place] [address] 02/02/2024 1:30 PM INDUSTRIAL ORGANIZATIONAL PSYCHOLOGIST Therapy Visit [facility] [address] [facility] [address] [place] [phone] Alicja Roldan OT 909 [place] [address] 02/05/2024 8:00 PM INDUSTRIAL ORGANIZATIONAL PSYCHOLOGIST Therapy Visit [facility] [place] [address] [place] [address] [address] [place] [phone] 02/13/2024 4:30 PM INDUSTRIAL ORGANIZATIONAL PSYCHOLOGIST Oncology Visit [facility] 909 [place] [phone] Marian Agustin APRN [facility] [address] [facility] [address] [place] [address] 03/01/2024 7:00 AM INDUSTRIAL ORGANIZATIONAL PSYCHOLOGIST Office Visit [address] [phone] Estella Hassan, [facility] [address] [place] [address] 03/23/2024 2:00 PM INDUSTRIAL ORGANIZATIONAL PSYCHOLOGIST Office Visit [facility] [address] [place] [address] [place] [address] Lizet Mann PA-C [address] [place] [address] 03/29/2024 3:30 PM INDUSTRIAL ORGANIZATIONAL PSYCHOLOGIST Office Visit [facility] 2945 [facility] [address] [place] [phone] Hakeem Chacko MBBS 2945 [place] [address] 05/03/2024 3:00 PM INDUSTRIAL ORGANIZATIONAL PSYCHOLOGIST Office Visit [facility] [address] [place] [phone] Gaurav Valenzuela, HOSPITAL ACCOUNT LIAISON [address] 016[address] 05/22/2024 10:30 AM CDT Office Visit [address] [phone] Estella Hassan, [place] [address] [place] [address] 05/22/2024 11:30 AM CDT Office Visit [address] [phone] Va lGez MD [address] [place] [address] [phone] documented as of this encounter Visit Diagnoses Not on filedocumented in this encounter Additional Health Concerns Infection Onset Date Last Indicated Resolved Time Rule Out COVID-19 06/22/2021 06/22/2021 06/23/2021 8:58 PM CDT Rule Out COVID-19 01/22/2022 01/22/2022 01/24/2022 1:05 PM INDUSTRIAL ORGANIZATIONAL PSYCHOLOGIST Rule Out COVID-19 01/25/2022 01/25/2022 01/25/2022 5:21 AM INDUSTRIAL ORGANIZATIONAL PSYCHOLOGIST Influenza 01/25/2022 01/25/2022 02/01/2022 11:4 1 PM INDUSTRIAL ORGANIZATIONAL PSYCHOLOGIST Rule Out COVID-19 07/29/2022 07/29/2022 07/31/2022 11:17 AM CDT Rule Out COVID-19 03/23/2023 03/23/2023 03/23/2023 6:30 PM INDUSTRIAL ORGANIZATIONAL PSYCHOLOGIST COVID-19 03/23/2023 03/23/2023 04/13/2023 11:4 0 PM INDUSTRIAL ORGANIZATIONAL PSYCHOLOGIST Rule Out COVID-19 06/05/2023 06/05/2023 06/05/2023 5:53 PM CDT Rule Out COVID-19 11/06/2023 11/06/2023 11/06/2023 11:05 PM CDT Rule Out COVID-19 11/20/2023 11/20/2023 11/20/2023 6:43 PM CDT Rule Out COVID-19 12/27/2023 12/27/2023 12/29/2023 1:37 PM CDT Assessment Noted Time PHQ-9 Depression Total Score: 7 08/08/19 21 7:03 AM CDT documented as of this encounter Care Teams Logistics Officer Relationship Specialty [place] [address] [place] [address] PCP - General Family Practice 07/11/14 [place] [address] [place] [address] Assigned PCP 12/16/11 Kerry Bernal RN Personal Advocate & Liaison (PAL) 01/08/19 07/10/23 Ravi Barillas DPM [address] [facility] [address] [place] [address] Assigned Musculoskeletal Provider 03/23/20 10/30/21 Christy Campuzano PA-C [address] [place] [address] [phone] Referring Physician Family Medicine 04/22/20 Hans Cannon MD [address] [place] [address] 536222 Resident Pulmonary Disease 04/22/20 Mitra Kendall, [facility] Lead Biochemistry Technician Primary Care - CC 01/08/1901/12 Burt Jovel MD Internal Medicine 05/08/20 12/13/23 Estella Hassan, [facility] [address] [facility] [place] [place] 764536 Pharmacist Pharmacist 05/26/20 Reji Chavez MD [address] [place] [phone] Assigned Heart and Vascular Provider 05/18/20 10/30/21 Elaina Moreno MD [address] [place] [address] 606835 Assigned Surgical Provider 05/18/20 11/19/22 Elaina Moreno MD 909 [place] [address] Cardiovascular & Thoracic Surgery 08/06/20 Kelsi Hassan MD [address] [facility] 284 [place] [address] Assigned Pulmonology Provider 06/28/21 02/05/22 John Webb MD [address] [phone] Cardiovascular Disease 08/25/21 John Webb MD [address] 458165 Cardiovascular Disease 08/25/21 Estella Hassan, [facility] [address] [place] [address] Assigned MTM Pharmacist 09/05/21 Nav Hughes MD [address] [place] [address] Assigned Heart and Vascular Provider 10/31/21 09/03/23 Cassandra Mendoza MD ORTHOPAEDIC SURGERY [address] [address] Assigned Musculoskeletal Provider 10/31/21 08/13/22 Estella Hassan, [facility] [address] [place] [address] Assigned MTM Pharmacist 12/09/21 Mitra Kendall, BANK PRESIDENT Lead Biochemistry Technician Primary Care - CC 01/26/2210/28 Lindsay Carey OD [address] [facility] [place] [address] Ophthalmology 01/29/22 Ravi Brownlee MD [address] [place] [address] 112365 Assigned Pulmonology Provider 02/06/22 09/03/23 Arabella Fishman MA Financial Resource Worker 02/22/22 02/23/22 Richard Kam MD [address] [place] [address] 317585 Assigned Musculoskeletal Provider 08/14/22 [facility] [address] [facility] [place] [id number] Pharmacist Pharmacist 11/22/22 01/09/23 [place] [address] 842777 Assigned Neuroscience Provider 01/01/23 Rosemarie Mcdowell, RN Automotive Engineering Technician Diabetes Education 03/17/23 Ravi Brownlee MD [address] [place] [address] 494715 Assigned Heart and Vascular Provider 09/04/23 01/03/24 Mitra Kendall LSW Lead Biochemistry Technician Primary Care - CC 12/12/23 Lizet Mann PA-C 717 [place], [place] 092415 Assigned Cancer Care Provider 01/04/24 Ravi Brownlee MD [address] [facility] 276 [place], [place] 595755 Assigned Pulmonology Provider 01/04/24 Nav Hughes MD [address] [place] 632205 Assigned Heart and Vascular Provider 01/04/24 Manuel Ahn OD 6341 [facility] [place] 509472 Activity Specialist 01/05/24 Arabella Fishman MA Financial Resource Worker 01/06/24 Thalia Charles [facility] Pharmacist Pharmacy 01/26/24 documented as of this encounter
--- OUTSIDE RECORDS SUMMARY | 2024-01-31 20:09 | XMS_ITS | Encounter Summary ---
Author Organization [place] Address [address] [place] [address] Care Team Providers Care Color Weigher Name Role Phone Va Glez MD Primary Care Provider Va Glez MD Unavailable Kerry Bernal RN Unavailable [phone] Ravi Barillas DPM Unavailable [phone] Christy Campuzano PA-C Unavailable Hans Cannon MD Unavailable Mitra Kendall LAB CLERK Unavailable [phone] Burt Jovel MD Unavailable Estella Hassan [facility] Unavailable Reji Chavez MD Unavailable [phone] Josh Cordero MD, Madhuri Unavailable [phone] Josh Cordero MD, Madhuri Unavailable [phone] Kelsi Hassan MD Unavailable [phone] John Webb MD Unavailable [phone] John Webb MD Unavailable [phone] Estella Hassan [facility] Unavailable [phone] Nav Hughes MD Unavailable [phone] Cassandra Mendoza MD Unavailable Estella Hassan [facility] Unavailable Mitra Kendall LAB CLERK Unavailable Aurelio Lindsay Bartone OD Unavailable [phone] Ravi Brownlee MD Unavailable Arabella Fishman MA Unavailable [phone] Richard Kam MD Unavailable Marisol Patel [facility] Unavailable [phone] Gaby Vila DO Unavailable Rosemarie Mcdowell RN Unavailable Ravi Brownlee MD Unavailable Mitra Kendall LAB CLERK Unavailable Lizet Mann PA-C Unavailable Ravi Brownlee MD Unavailable Nav Hughes MD Unavailable [phone] Manuel Ahn OD Unavailable [phone] Arabella Fishman MA Unavailable [phone] Thalia Charles [facility] Unavailable Unavailable Reason for Referral * Care Coordination (Routine) - Closed Specialty Diagnoses / Procedures Referred By Mireille gonzalez Referred To Contact Diagnoses Mediastinal cyst John Medina, [facility] [address] [place] [address] Phone: tel: fax: Referral ID Status Reason Start Date Expiration Date Visits Re quested Visits Authorized [id number] Closed 08/22/2020 08/22/2021 1 1 Comments Services are provided by a Cylinder Inspector for people with complex needs such as: medical, social, or financial troubles. The Cylinder Inspector works with the patient and their Primary Care Provider to determine health goals, obtain resources, achieve outcomes, and develop care plans that help coordinate the patient's care. Reason for Referral: Financial Support: Insurance Additional pertinent details: Has had to cancel visits due to lapse in insurance - needs help navigating resources to get insured again Clinical Staff have discussed the Care Coordination Referral with the patient and/or caregiver: yes Encounter Details Date Type Department Care Team (Late st Contact Info) Description 08/22/2020 [facility] Medical Advice [address] [address] [facility] [address] [place] [address] Mediastinal cyst (Primary Dx) Social History Tobacco [...] points; Administer PHQ-9 if positive 1 08/06/2020 [facility] - Occupational Stress Questionnaire Answer [...] on file 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 No / Unsure 08/24/2020 8:28 AM CDT documented as of this encounter Plan of Treatment Upcoming Encounters Date Type Department Care Team (Late st Contact Info) Description 02/01/2024 3:00 PM LIVESTOCK JUDGING COACH Office Visit [facility] Zeeshan [address] [place] [address] [place] [address] Manuel Ahn, OD [address] [facility] [place] [address] 02/02/2024 1:30 PM LIVESTOCK JUDGING COACH Therapy Visit [facility] [address] [facility] [address] [place] [phone] Alicja Roldan, OT 909 [place] [address] 02/05/2024 8:00 PM LIVESTOCK JUDGING COACH Therapy Visit [facility] [place] 6363 [facility] 103 [place] [phone] 02/13/2024 4:30 PM LIVESTOCK JUDGING COACH Oncology Visit [facility] 909 [place] [phone] Marian Agustin, FR[employer] GRAD[employer] [facility] 420 [facility] 207 [place] [address] 03/01/2024 7:00 AM LIVESTOCK JUDGING COACH Office Visit [facility] [address] [place] [phone] Estella Hassan, [facility] [address] [place] [address] 03/23/2024 2:00 PM LIVESTOCK JUDGING COACH Office Visit [facility] [address] [place] [address] [place] [phone] Lizet Mann PA-C 717 [place] [address] 03/29/2024 3:30 PM LIVESTOCK JUDGING COACH Office Visit [facility] 2945 [facility] 200 [place] [phone] Hakeem Chacko MBBS 2945 [place] [address] 05/03/2024 3:00 PM LIVESTOCK JUDGING COACH Office Visit [facility] [address] [place] [address] Gaurav Valenzuela, FRESH MEAT GRADER [facility] [address] [place] [address] 137514 05/22/2024 10:30 AM CDT Office Visit [facility] [address] [place] [phone] Estella Hassan, [facility] [address] [place] [address] 05/22/2024 11:30 AM CDT Office Visit [address] [phone] [place] [id number] [place] [address] [phone] Scheduled Referrals Name Type Priority Associated Diagnoses Orde r Schedule CARE COORDINATION REFERRAL Referral Routine Mediastinal cyst Ordered: 08/22/2020 documented as of this encounter Visit Diagnoses Diagnosis 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 documented in this encounter Additional Health Concerns Infection Onset Date Last Indicated Resolved Time Rule Out COVID-19 06/22/2021 06/22/2021 06/23/2021 8:58 PM CDT Rule Out COVID-19 01/22/2022 01/22/2022 01/24/2022 1:05 PM LIVESTOCK JUDGING COACH Rule Out COVID-19 01/25/2022 01/25/2022 01/25/2022 5:21 AM LIVESTOCK JUDGING COACH Influenza 01/25/2022 01/25/2022 02/01/2022 11:4 1 PM LIVESTOCK JUDGING COACH Rule Out COVID-19 07/29/2022 07/29/2022 07/31/2022 11:17 AM CDT Rule Out COVID-19 03/23/2023 03/23/2023 03/23/2023 6:30 PM LIVESTOCK JUDGING COACH COVID-19 03/23/2023 03/23/2023 04/13/2023 11:4 0 PM LIVESTOCK JUDGING COACH Rule Out COVID-19 06/05/2023 06/05/2023 06/05/2023 5:53 PM CDT Rule Out COVID-19 11/06/2023 11/06/2023 11/06/2023 11:05 PM CDT Rule Out COVID-19 11/20/2023 11/20/2023 11/20/2023 6:43 PM CDT Rule Out COVID-19 12/27/2023 12/27/2023 12/29/2023 1:37 PM CDT Assessment Noted Time PHQ-9 Depression Total Score: 7 08/08/19 7:03 AM CDT documented as of this encounter Care Teams Color Weigher Relationship Specialty [place] [address] [place] [address] PCP - General Family Practice 07/11/14 [place] [address] [place] [address] Assigned PCP 12/16/11 Kerry Bernal RN Personal Advocate & Liaison (PAL) 01/08/19 07/10/23 Ravi Barillas DPM [address] [facility] [address] [place], [place] 260867 Assigned Musculoskeletal Provider 03/23/20 10/30/21 Christy Campuzano PA-C [address] [place] [address] 072882 Referring Physician Family Medicine 04/22/20 aHns Cannon MD [address] [place] [address] 154532 Resident Pulmonary Disease 04/22/20 Enoch Mitra Holloway, [facility] Lead Cylinder Inspector Primary Care - CC 01/08/1901/12 Burt Jovel MD Internal Medicine 05/08/20 12/13/23 Estella Hassan, [facility] [address] [place] [address] Pharmacist Pharmacist 05/26/20 Reji Chavez MD [address] [place] [phone] Assigned Heart and Vascular Provider 05/18/20 10/30/21 Elaina Moreno MD [address] [place] [address] 625985 Assigned Surgical Provider 05/18/20 11/19/22 Elaina Moreno MD [address] [place] [address] [phone] Cardiovascular & Thoracic Surgery 08/06/20 Klesi Hassan MD [address] [place] [address] 344825 Assigned Pulmonology Provider 06/28/21 02/05/22 John Webb MD [address] 976325 Cardiovascular Disease 08/25/21 John Webb MD [address] [address] Cardiovascular Disease 08/25/21 Estella Hassan, [facility] [address] [place] [address] Assigned MTM Pharmacist 09/05/21 Nav Hughes MD [address] [place] [address] Assigned Heart and Vascular Provider 10/31/21 09/03/23 Cassandra Mendoza MD ORTHOPAEDIC SURGERY [address] [place] [address] Assigned Musculoskeletal Provider 10/31/21 08/13/22 Estella Hassan, [facility] [address] [place] [address] Assigned MTM Pharmacist 12/09/21 Mitra Kendall, [facility] Lead Cylinder Inspector Primary Care - CC 01/26/2210/28 Lindsay Carey OD [address] [place] [address] [place] [address] Ophthalmology 01/29/22 Ravi Brownlee MD [address] [place] [address] Assigned Pulmonology Provider 02/06/22 09/03/23 Arabella Fishman MA Financial Resource Worker 02/22/22 02/23/22 Richard Kam MD [address] [place] [address] Assigned Musculoskeletal Provider 08/14/22 Marisol Patel, [facility] [address] [facility] [place] [address] Pharmacist Pharmacist 11/22/22 01/09/23 [place] [address] [address] Assigned Neuroscience Provider 01/01/23 Rosemarie Mcdowell, RN Proof Reader Diabetes Education 03/17/23 Ravi Brownlee MD [address] [place] [address] Assigned Heart and Vascular Provider 09/04/23 01/03/24 Mitra Kendall, [facility] Lead Cylinder Inspector Primary Care - CC 12/12/23 Lizet Mann PA-C [address] [place] [address] Assigned Cancer Care Provider 01/04/24 Ravi Brownlee MD [address] [place] [address] Assigned Pulmonology Provider 01/04/24 Nav Hughes MD [address] [place] [address] Assigned Heart and Vascular Provider 01/04/24 Manuel Ahn OD [address] [facility] [place] [place] [address] Set Up Mechanic Coating Machines 01/05/24 Arabella Fishman MA Financial Resource Worker 01/06/24 Thalia Charles RPH Pharmacist Pharmacy 01/26/24 documented as of this encounter
--- OUTSIDE RECORDS SUMMARY | 2024-01-31 20:09 | XMS_ITS | Encounter Summary ---
Author Organization [facility] Address [address] [place] [address] Care Team Providers Care Executive Community Planning Name Role Phone Va Glez MD Primary Care Provider Va Glez MD Unavailable Kerry Bernal RN Unavailable [phone] Ravi Barillas DPM Unavailable [phone] Christy Campuzano PA-C Unavailable Hans Cannon MD Unavailable [phone] Mitra Kendall QUALITY INSPECTOR Unavailable [phone] Burt Jovel MD Unavailable Estella Hassan [facility] Unavailable Reji Chavez MD Unavailable [phone] Josh Cordero MD, Madhuri Unavailable [phone] Josh Cordero MD, Madhuri Unavailable [phone] Kelsi Hassan MD Unavailable [phone] John Webb MD Unavailable John Webb MD Unavailable [phone] Estella Hassan [facility] Unavailable [phone] Nav Hughes MD Unavailable [phone] Cassandra Mendoza MD Unavailable Estella Hassan [facility] Unavailable Mitra Kendall QUALITY INSPECTOR Unavailable Lindsay Carey OD Unavailable [phone] LemoyneRavi bajwa MD Unavailable [phone] Arabella Fishman MA Unavailable [phone] Richard Kam MD Unavailable Marisol Patel [facility] Unavailable Gaby Vila DO Unavailable Rosemarie Mcdowell RN Unavailable Ravi Brownlee MD Unavailable Mitra Kendall QUALITY INSPECTOR Unavailable Lizet Mann PA-C Unavailable Ravi Brownlee MD Unavailable Nav Hughes MD Unavailable [phone] Manuel Ahn OD Unavailable Arabella Fishman MA Unavailable [phone] Thalia Charles [facility] Unavailable Unavailable Encounter Details Date Type Department Care Team (Late st Contact Info) Description 09/09/2020 [facility] Medical Advice [address] [address] Estella Hassan, [facility] [address] [place] [address] Social History Tobacco Use Types Packs/Day Years [...] points; Administer PHQ-9 if positive 1 08/06/2020 [facility] [...] on file 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 Gender Identity Not on file [...] st Contact Info) Description 02/01/2024 3:00 PM SPUN PASTE MACHINE OPERATOR Office Visit [facility] 6[address] [place] [phone] [facility] [place] [address] [place] [address] 02/02/2024 1:30 PM SPUN PASTE MACHINE OPERATOR Therapy Visit [facility] [address] [facility] 300 [place] [phone] Alicja Roldan OT 909 [place] [address] 02/05/2024 8:00 PM SPUN PASTE MACHINE OPERATOR Therapy Visit [facility] [place] [address] [place] [address] 103 [place] [phone] 02/13/2024 4:30 PM SPUN PASTE MACHINE OPERATOR Oncology Visit [facility] 909 [place] [phone] Marian Agustin APRN [facility] [address] [facility] 207 [place] [address] 03/01/2024 7:00 AM SPUN PASTE MACHINE OPERATOR Office Visit [address] [phone] Estella Hassan, [facility] [address] [place] [address] 03/23/2024 2:00 PM SPUN PASTE MACHINE OPERATOR Office Visit [facility] [address] [place] [address] [place] [address] Lizet Mann PA-C [address] [place] [address] 03/29/2024 3:30 PM SPUN PASTE MACHINE OPERATOR Office Visit [facility] 2945 [facility] 200 [place] [phone] Hakeem Chacko MBBS 2945 [place] [address] 05/03/2024 3:00 PM SPUN PASTE MACHINE OPERATOR Office Visit [facility] [address] [place] [phone] Gaurav Valenzuela, DOOR TENDER [address] 544074 05/22/2024 10:30 AM CDT Office Visit [address] [phone] Estella Hassan, [place] [address] [place] [address] 05/22/2024 11:30 AM CDT Office Visit [address] [phone] Va Glez MD [address] [place] [address] [phone] documented as of this encounter Visit Diagnoses Not on filedocumented in this encounter Additional Health Concerns Infection Onset Date Last Indicated Resolved Time Rule Out COVID-19 06/22/2021 06/22/2021 06/23/2021 8:58 PM CDT Rule Out COVID-19 01/22/2022 01/22/2022 01/24/2022 1:05 PM SPUN PASTE MACHINE OPERATOR Rule Out COVID-19 01/25/2022 01/25/2022 01/25/2022 5:21 AM SPUN PASTE MACHINE OPERATOR Influenza 01/25/2022 01/25/2022 02/01/2022 11:4 1 PM SPUN PASTE MACHINE OPERATOR Rule Out COVID-19 07/29/2022 07/29/2022 07/31/2022 11:17 AM CDT Rule Out COVID-19 03/23/2023 03/23/2023 03/23/2023 6:30 PM SPUN PASTE MACHINE OPERATOR COVID-19 03/23/2023 03/23/2023 04/13/2023 11:4 0 PM SPUN PASTE MACHINE OPERATOR Rule Out COVID-19 06/05/2023 06/05/2023 06/05/2023 5:53 PM CDT Rule Out COVID-19 11/06/2023 11/06/2023 11/06/2023 11:05 PM CDT Rule Out COVID-19 11/20/2023 11/20/2023 11/20/2023 6:43 PM CDT Rule Out COVID-19 12/27/2023 12/27/2023 12/29/2023 1:37 PM CDT Assessment Noted Time PHQ-9 Depression Total Score: 7 08/08/19 21 7:03 AM CDT documented as of this encounter Care Teams Executive Community Planning Relationship Specialty [place] [address] [place] [address] PCP - General Family Practice 07/11/14 [place] [address] [place] [address] Assigned PCP 12/16/11 Kerry Bernal RN Personal Advocate & Liaison (PAL) 01/08/19 07/10/23 Ravi Barillas DPM [address] [facility] [address] [place] [address] Assigned Musculoskeletal Provider 03/23/20 10/30/21 Christy Campuzano PA-C [address] [place] [address] [phone] Referring Physician Family Medicine 04/22/20 Hans Cannon MD [address] [place] [address] 724402 Resident Pulmonary Disease 04/22/20 Mitra Kendall, [facility] Lead Pan Cleaner Primary Care - CC 01/08/1901/12 Burt Jovel MD Internal Medicine 05/08/20 12/13/23 Estella Hassan, [facility] 30[address] [facility] [place] [place] [address] Pharmacist Pharmacist 05/26/20 Reji Chavez MD [address] [place] [phone] Assigned Heart and Vascular Provider 05/18/20 10/30/21 Elaina Moreno MD [address] [place] [address] [id number] Assigned Surgical Provider 05/18/20 11/19/22 Elaina Moreno MD 909 [place] [address] Cardiovascular & Thoracic Surgery 08/06/20 Kelsi Hassan MD 420 [facility] 284 [place] [address] Assigned Pulmonology Provider 06/28/21 02/05/22 John Webb MD [address] 255375 Cardiovascular Disease 08/25/21 John Webb MD [address] 949805 Cardiovascular Disease 08/25/21 Estella Hassan, [facility] 30[address] [place] [address] Assigned MTM Pharmacist 09/05/21 Nav Hughes MD [address] [place] [address] Assigned Heart and Vascular Provider 10/31/21 09/03/23 Cassandra Mendoza MD ORTHOPAEDIC SURGERY [address] [address] Assigned Musculoskeletal Provider 10/31/21 08/13/22 Estella Hassan, [facility] [address] [place] [address] Assigned MTM Pharmacist 12/09/21 Mitra Kendall, QUALITY INSPECTOR Lead Pan Cleaner Primary Care - CC 01/26/2210/28 Lindsay Carey OD [address] [facility] [place] [address] Ophthalmology 01/29/22 Ravi Brownlee MD [address] [place] [address] 533345 Assigned Pulmonology Provider 02/06/22 09/03/23 Arabella Fishman MA Financial Resource Worker 02/22/22 02/23/22 Richard Kam MD [address] [place] [address] [phone] Assigned Musculoskeletal Provider 08/14/22 [facility] 1440 [facility] [place] [phone] Pharmacist Pharmacist 11/22/22 01/09/23 [place] [address] 791647 Assigned Neuroscience Provider 01/01/23 Rosemarie Mcdowell, RN Fish Liver Sorter Diabetes Education 03/17/23 Ravi Brownlee MD [address] [place] [address] 603435 Assigned Heart and Vascular Provider 09/04/23 01/03/24 Mitra Kendall LSW Lead Pan Cleaner Primary Care - CC 12/12/23 Lizet Mann PA-C 717 [place], [place] 688275 Assigned Cancer Care Provider 01/04/24 Ravi Brownlee MD 420 [facility] 276 [place], [place] 731025 Assigned Pulmonology Provider 01/04/24 Nav Hughes MD [address] [place] [phone] Assigned Heart and Vascular Provider 01/04/24 Manuel Ahn OD 6341 [facility] [place] 813332 Water Meter Mechanic 01/05/24 Arabella Fishman MA Financial Resource Worker 01/06/24 Thalia Charles [facility] Pharmacist Pharmacy 01/26/24 documented as of this encounter
--- OUTSIDE RECORDS SUMMARY | 2024-01-31 20:09 | XMS_ITS | Encounter Summary ---
Author Organization [facility] Address [address] [place] [address] Care Team Providers Care Docent Coordinator Name Role Phone Va Glez MD Primary Care Provider [phone] Va lGez MD Unavailable Kerry Bernal RN Unavailable [phone] Ravi Barillas DPM Unavailable [phone] Christy Campuzano PA-C Unavailable Hans Cannon MD Unavailable Mitra Kendall SPECIAL EDUCATION DIRECTOR Unavailable [phone] Burt Jovel MD Unavailable Estella Hassan [facility] Unavailable Reji Chavez MD Unavailable Josh Cordero MD, Madhuri Unavailable [phone] Josh Cordero MD, Madhuri Unavailable [phone] Kelsi Hassan MD Unavailable [phone] John Webb MD Unavailable John Webb MD Unavailable Estella Hassan [facility] Unavailable Nav Hughes MD Unavailable [phone] Cassandra Mendoza MD Unavailable Estella Hassan [facility] Unavailable [phone] Mitra Kendall SPECIAL EDUCATION DIRECTOR Unavailable [phone] Lindsay Carey OD Unavailable Mount OliveRavi bajwa MD Unavailable [phone] Arabella Fishman MA Unavailable [phone] Richard Kam MD Unavailable Marisol Patel [facility] Unavailable Gaby Vila DO Unavailable [phone] Rosemarie Mcdowell RN Unavailable Ravi Brownlee MD Unavailable Mitra Kendall SPECIAL EDUCATION DIRECTOR Unavailable [phone] Lizet Mann PA-C Unavailable Ravi Brownlee MD Unavailable [phone] Nav Hughes MD Unavailable [phone] Manuel Ahn OD Unavailable Arabella Fishman MA Unavailable [phone] Thalia Charles [facility] Unavailable Unavailable Encounter Details Date Type Department Care Team (Late st Contact Info) Description 09/12/2020 [facility] Medical Advice [address] [address] Estella Hassan, [facility] [address] [place] [address] Social History Tobacco Use Types Packs/Day Years [...] and Family Not on file 05/31/2019 Attends Jewish Services Not on file 05/30 Active Member [...] PHQ-9 if positive 1 08/06/2020 [facility] - Occupational [...] on file Legal 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 INSIDE CONTRACTOR SALES Gender Identity Not on file Sexual [...] st Contact Info) Description 02/01/2024 3:00 PM INSIDE CONTRACTOR SALES Office Visit [facility] 6341 [place] [phone] [facility] [address] [place] [address] 02/02/2024 1:30 PM INSIDE CONTRACTOR SALES Therapy Visit [facility] [address] [facility] 300 [place] [phone] Alicja Roldan OT 909 [place] [address] 02/05/2024 8:00 PM INSIDE CONTRACTOR SALES Therapy Visit [facility] [place] [address] [place] [address] 103 [place] [phone] 02/13/2024 4:30 PM INSIDE CONTRACTOR SALES Oncology Visit [facility] 909 [place] [phone] aMrian Agustin APRN [facility] [address] [place] [address] [facility] 207 [place] [address] 03/01/2024 7:00 AM INSIDE CONTRACTOR SALES Office Visit [address] [phone] Estella Hassan, [facility] [address] [place] [address] 03/23/2024 2:00 PM INSIDE CONTRACTOR SALES Office Visit [facility] [address] [place] [address] [place] [address] Lizet Mann PA-C [address] [place] [address] 03/29/2024 3:30 PM INSIDE CONTRACTOR SALES Office Visit [facility] 2945 [facility] 200 [place] [phone] Hakeem Chacko MBBS 2945 [place] [address] 05/03/2024 3:00 PM INSIDE CONTRACTOR SALES Office Visit [facility] [address] [place] [phone] Gaurav Valenzuela, NURSE CHEMICAL DEPENDENCY [address] 323[address] 05/22/2024 10:30 AM CDT Office Visit [address] [phone] Estella Hassan, [place] [address] [place] [address] 05/22/2024 11:30 AM CDT Office Visit [address] [phone] Va Glez MD [address] [place] [address] [phone] documented as of this encounter Visit Diagnoses Not on filedocumented in this encounter Additional Health Concerns Infection Onset Date Last Indicated Resolved Time Rule Out COVID-19 06/22/2021 06/22/2021 06/23/2021 8:58 PM CDT Rule Out COVID-19 01/22/2022 01/22/2022 01/24/2022 1:05 PM INSIDE CONTRACTOR SALES Rule Out COVID-19 01/25/2022 01/25/2022 01/25/2022 5:21 AM INSIDE CONTRACTOR SALES Influenza 01/25/2022 01/25/2022 02/01/2022 11:4 1 PM INSIDE CONTRACTOR SALES Rule Out COVID-19 07/29/2022 07/29/2022 07/31/2022 11:17 AM CDT Rule Out COVID-19 03/23/2023 03/23/2023 03/23/2023 6:30 PM INSIDE CONTRACTOR SALES COVID-19 03/23/2023 03/23/2023 04/13/2023 11:4 0 PM INSIDE CONTRACTOR SALES Rule Out COVID-19 06/05/2023 06/05/2023 06/05/2023 5:53 PM CDT Rule Out COVID-19 11/06/2023 11/06/2023 11/06/2023 11:05 PM CDT Rule Out COVID-19 11/20/2023 11/20/2023 11/20/2023 6:43 PM CDT Rule Out COVID-19 12/27/2023 12/27/2023 12/29/2023 1:37 PM CDT Assessment Noted Time PHQ-9 Depression Total Score: 7 08/08/19 21 7:03 AM CDT documented as of this encounter Care Teams Docent Coordinator Relationship Specialty [place] [address] [place] [address] PCP - General Family Practice 07/11/14 [place] [address] [place] [address] Assigned PCP 12/16/11 Kerry Bernal RN Personal Advocate & Liaison (PAL) 01/08/19 07/10/23 Ravi Barillas DPM [address] [facility] [address] [place] [address] Assigned Musculoskeletal Provider 03/23/20 10/30/21 Christy Campuzano PA-C [address] [place] [address] 756362 Referring Physician Family Medicine 04/22/20 Hans Cannon MD [address] [place] [address] 500342 Resident Pulmonary Disease 04/22/20 Mitra Kendall, [facility] Lead Stacker Primary Care - CC 01/08/1901/12 Burt Jovel MD Internal Medicine 05/08/20 12/13/23 Estella Hassan, [facility] [address] [facility] [place] [place] [address] Pharmacist Pharmacist 05/26/20 Reji Chavez MD [address] [place] [phone] Assigned Heart and Vascular Provider 05/18/20 10/30/21 Elaina Moreno MD [address] [place] [address] [phone] Assigned Surgical Provider 05/18/20 11/19/22 Elaina Moreno MD 909 [place] [address] Cardiovascular & Thoracic Surgery 08/06/20 Kelsi Hassan MD 420 [facility] 284 [place] [address] Assigned Pulmonology Provider 06/28/21 02/05/22 John Webb MD [address] 795785 Cardiovascular Disease 08/25/21 John Webb MD [address] 769215 Cardiovascular Disease 08/25/21 Estella Hassan, [facility] [address] [place] [address] Assigned MTM Pharmacist 09/05/21 Nav Hughes MD [address] [place] [address] Assigned Heart and Vascular Provider 10/31/21 09/03/23 Cassandra Mendoza MD ORTHOPAEDIC SURGERY [address] [address] Assigned Musculoskeletal Provider 10/31/21 08/13/22 Estella Hassan, [facility] [address] [place] [address] Assigned MTM Pharmacist 12/09/21 Mitra Kendall, SPECIAL EDUCATION DIRECTOR Lead Stacker Primary Care - CC 01/26/2210/28 Lindsay Carey OD 3305 [facility] [place] [address] Ophthalmology 01/29/22 Ravi Brownlee MD [address] [place] [address] [phone] Assigned Pulmonology Provider 02/06/22 09/03/23 Arabella Fishman MA Financial Resource Worker 02/22/22 02/23/22 Richard Kam MD [address] [place] [address] 296875 Assigned Musculoskeletal Provider 08/14/22 [facility] 1440 [facility] [place] [place] [phone] Pharmacist Pharmacist 11/22/22 01/09/23 [place] [address] 093137 Assigned Neuroscience Provider 01/01/23 Rosemarie Mcdowell, RN Packing Floor Worker Diabetes Education 03/17/23 Ravi Brownlee MD [address] [place] [address] 930805 Assigned Heart and Vascular Provider 09/04/23 01/03/24 Mitra Kendall LSW Lead Stacker Primary Care - CC 12/12/23 Lizet Mann PA-C 717 [place], [place] 831915 Assigned Cancer Care Provider 01/04/24 Ravi Brownlee MD 420 [facility] 276 [place], [place] 771395 Assigned Pulmonology Provider 01/04/24 Nav Hughes MD [address] [place] 207875 Assigned Heart and Vascular Provider 01/04/24 Manuel Ahn OD 6341 [facility] [place] [phone] Residential Sales Representative 01/05/24 Arabella Fishman MA Financial Resource Worker 01/06/24 Thalia Charles [facility] Pharmacist Pharmacy 01/26/24 documented as of this encounter
--- OUTSIDE RECORDS SUMMARY | 2024-01-31 20:09 | XMS_ITS | Encounter Summary ---
Author Organization [facility] Address [address] [place] [address] Care Team Providers Care Train Master Name Role Phone Va Glez MD Primary Care Provider Va Glez MD Unavailable Kerry Bernal RN Unavailable [phone] Ravi Barillas DPM Unavailable [phone] Christy Campuzano PA-C Unavailable Hans Cannon MD Unavailable [phone] Mitra Kendall JOY LOADING MACHINE OPERATOR Unavailable Burt Jovel MD Unavailable [phone] Estella Hassan [facility] Unavailable Reji Chavez MD Unavailable Josh Cordero MD, Madhuri Unavailable [phone] Josh Cordero MD, Madhuri Unavailable [phone] Kelsi Hassan MD Unavailable [phone] John Webb MD Unavailable John Webb MD Unavailable Estella Hassan [facility] Unavailable Nav Hughes MD Unavailable [phone] Cassandra Mendoza MD Unavailable [phone] Estella Hassan [facility] Unavailable Mitra Kendall JOY LOADING MACHINE OPERATOR Unavailable Lindsay Carey OD Unavailable Rock CreekRavi bajwa MD Unavailable Arabella Fishman MA Unavailable [phone] Richard Kam MD Unavailable Marisol Patel [facility] Unavailable [phone] Gaby Vila DO Unavailable Rosemarie Mcdowell RN Unavailable [phone] Ravi Brownlee MD Unavailable [phone] Mitra Kendall JOY LOADING MACHINE OPERATOR Unavailable Lizet Mann PA-C Unavailable Ravi Brownlee MD Unavailable Nav Hughes MD Unavailable [phone] Manuel Ahn OD Unavailable [phone] Arabella Fishman MA Unavailable Thalia Charles [facility] Unavailable Unavailable Encounter Details Date Type Department Care Team (Late st Contact Info) Description 09/29/2020 [facility] Medical Advice [address] [address] Estella Hassan, [facility] [address] [place] [address] Morbid obesity due to excess calories (H) [...] and Family Not on file 05/31/2019 Attends Sikh Services Not on file 05/30 Active Member [...] points; Administer PHQ-9 if positive 1 08/06/2020 [facility] [place] of Occupat ional Health - Occupational Stress [...] on file Legal 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 HEALTH OUTREACH WORKER Gender Identity Not on file Sexual [...] st Contact Info) Description 02/01/2024 3:00 PM HEALTH OUTREACH WORKER Office Visit [facility] [address] [place] [phone] Manuel Ahn [address] [place] [address] 02/02/2024 1:30 PM HEALTH OUTREACH WORKER Therapy Visit [facility] [place] [facility] [place] [address] [facility] 300 [place] [phone] Alicja Roldan, OT 909 [place] [address] 02/05/2024 8:00 PM HEALTH OUTREACH WORKER Therapy Visit [facility] [place] [address] [place] [address] 103 [place] [phone] 02/13/2024 4:30 PM HEALTH OUTREACH WORKER Oncology Visit [facility] 909 [place] [phone] Marian Agustin APRN [facility] 420 [facility] [address] [place] [address] 03/01/2024 7:00 AM HEALTH OUTREACH WORKER Office Visit [address] [phone] Estella Hassan, [place] [address] [place] [address] 03/23/2024 2:00 PM HEALTH OUTREACH WORKER Office Visit [facility] [address] [place] [phone] Lizet Mann PA-C [address] [place] [address] 03/29/2024 3:30 PM HEALTH OUTREACH WORKER Office Visit [facility] [address] [phone] Hakeem Chacko MBBS 2945 [place] [address] 05/03/2024 3:00 PM HEALTH OUTREACH WORKER Office Visit [facility] [address] [phone] Gaurav Valenzuela, ADVERTISING SALES ASSOCIATE [address] [address] 05/22/2024 10:30 AM CDT Office Visit [address] [phone] Estella Hassan, [address] [address] 05/22/2024 11:30 AM CDT Office Visit [address] [phone] Va Glez MD [address] [place] [address] [phone] documented as of this encounter Visit Diagnoses Diagnosis Morbid obesity due to excess calories (H) documented in this encounter Additional Health Concerns Infection Onset Date Last Indicated Resolved Time Rule Out COVID-19 06/22/2021 06/22/2021 06/23/2021 8:58 PM CDT Rule Out COVID-19 01/22/2022 01/22/2022 01/24/2022 1:05 PM HEALTH OUTREACH WORKER Rule Out COVID-19 01/25/2022 01/25/2022 01/25/2022 5:21 AM HEALTH OUTREACH WORKER Influenza 01/25/2022 01/25/2022 02/01/2022 11:4 1 PM HEALTH OUTREACH WORKER Rule Out COVID-19 07/29/2022 07/29/2022 07/31/2022 11:17 AM CDT Rule Out COVID-19 03/23/2023 03/23/2023 03/23/2023 6:30 PM HEALTH OUTREACH WORKER COVID-19 03/23/2023 03/23/2023 04/13/2023 11:4 0 PM HEALTH OUTREACH WORKER Rule Out COVID-19 06/05/2023 06/05/2023 06/05/2023 5:53 PM CDT Rule Out COVID-19 11/06/2023 11/06/2023 11/06/2023 11:05 PM CDT Rule Out COVID-19 11/20/2023 11/20/2023 11/20/2023 6:43 PM CDT Rule Out COVID-19 12/27/2023 12/27/2023 12/29/2023 1:37 PM CDT Assessment Noted Time PHQ-9 Depression Total Score: 7 08/08/19 7:03 AM CDT documented as of this encounter Care Teams Train Master Relationship Specialty [place] [address] [place] [address] PCP - General Family Practice 07/11/14 [place] [address] [place] [address] Assigned PCP 12/16/11 Kerry Bernal IN[employer]ENCIO Personal Advocate & Liaison (PAL) 01/08/19 07/10/23 Ravi Barillas DPM [address] [facility] [address] [place] [address] Assigned Musculoskeletal Provider 03/23/20 10/30/21 Christy Campuzano PA-C [address] [place] [address] 036112 Referring Physician Family Medicine 04/22/20 Hans Cannon MD [address] [place] [address] [phone] Resident Pulmonary Disease 04/22/20 Mitra Kendall, [facility] Lead Slip Caster Primary Care - CC 01/08/1901/12 Burt Jovel MD Internal Medicine 05/08/20 12/13/23 Estella Hassan, [facility] [address] [place] [address] Pharmacist Pharmacist 05/26/20 Reji Chavez MD [address] [place] [phone] Assigned Heart and Vascular Provider 05/18/20 10/30/21 Elaina Moreno MD [address] [place] [address] [phone] Assigned Surgical Provider 05/18/20 11/19/22 Elaina Moreno MD 909 [place] [address] Cardiovascular & Thoracic Surgery 08/06/20 Kelsi Hassan MD 420 [facility] [address] [place], [place] 819715 Assigned Pulmonology Provider 06/28/21 02/05/22 John Webb MD [address] [id number] Cardiovascular Disease 08/25/21 John Webb MD [address] [id number] Cardiovascular Disease 08/25/21 Estella Hassan, [facility] [address] [place] [address] Assigned MTM Pharmacist 09/05/21 Nav Hughes MD [address] [place] [address] Assigned Heart and Vascular Provider 10/31/21 09/03/23 Cassandra Mendoza MD ORTHOPAEDIC SURGERY [facility] [address] Assigned Musculoskeletal Provider 10/31/21 08/13/22 Estella Hassan, [facility]3 [place] [address] Assigned MTM Pharmacist 12/09/21 Mitra Kendall, JOY LOADING MACHINE OPERATOR Lead Slip Caster Primary Care - CC 01/26/2210/28 Lindsay Carey OD 3[address] [facility] [address] [address] Ophthalmology 01/29/22 Ravi Brownlee MD [address] [place] [address] Assigned Pulmonology Provider 02/06/22 09/03/23 Arabella Fishman MA Financial Resource Worker 02/22/22 02/23/22 Richard Kam MD [address] [place] [address] Assigned Musculoskeletal Provider 08/14/22 Marisol Patel, [facility] 14[address] [facility] [place] [address] Pharmacist Pharmacist 11/22/22 01/09/23 [place] [address] [address] Assigned Neuroscience Provider 01/01/23 Rosemarie Mcdowell, RN Peat Shredder Tender Diabetes Education 03/17/23 Ravi Brownlee MD [address] [place] [address] Assigned Heart and Vascular Provider 09/04/23 01/03/24 Mitra Kendall, JOY LOADING MACHINE OPERATOR Lead Slip Caster Primary Care - CC 12/12/23 Lizet Mann PA-C 717 [place] [address] Assigned Cancer Care Provider 01/04/24 Ravi Brownlee MD 420 [facility] [address] [place], [place] [address] Assigned Pulmonology Provider 01/04/24 Nav Hughes MD [address] 090275 Assigned Heart and Vascular Provider 01/04/24 Manuel Ahn OD 6341 [place], [place] 210572 Spa Director/Finance 01/05/24 Arabella Fishman MA Financial Resource Worker 01/06/24 Thalia Charles [facility] Pharmacist Pharmacy 01/26/24 documented as of this encounter
--- OUTSIDE RECORDS SUMMARY | 2024-01-31 20:09 | XMS_ITS | Encounter Summary ---
Author Organization [facility] Address [address] [place] [address] Care Team Providers Care Restaurant Line Server Name Role Phone Va Glez MD Primary Care Provider [phone] Va Glez MD Unavailable Kerry Bernal RN Unavailable [phone] Ravi Barillas DPM Unavailable [phone] Christy Campuzano PA-C Unavailable [phone] Hans Cannon MD Unavailable Mitra Kendall BOARD RUNNER Unavailable [phone] Burt Jovel MD Unavailable Estella Hassan [facility] Unavailable Reji Chavez MD Unavailable Josh Cordero MD, Madhuri Unavailable [phone] Josh Cordero MD, Madhuri Unavailable [phone] Kelsi Hassan MD Unavailable [phone] John Webb MD Unavailable John Webb MD Unavailable [phone] Estella Hassan [facility] Unavailable [phone] Nav Hughes MD Unavailable [phone] Cassandra Mendoza MD Unavailable [phone] Estella Hassan [facility] Unavailable Mitra Kendall BOARD RUNNER Unavailable Lindsay Carey OD Unavailable BrooklynRavi bajwa MD Unavailable [phone] Arabella Fishman MA Unavailable [phone] Richard Kam MD Unavailable Marisol Patel [facility] Unavailable [phone] Gaby Vila DO Unavailable Rosemarie Mcdowell RN Unavailable [phone] Ravi Brownlee MD Unavailable Mitra Kendall BOARD RUNNER Unavailable [phone] Lizet Mann PA-C Unavailable [phone] Ravi Brownlee MD Unavailable Nav Hughes MD Unavailable [phone] Manuel Ahn OD Unavailable [phone] Arabella Fishman MA Unavailable [phone] Thalia Charles [facility] Unavailable Unavailable Encounter Details Date Type Department Care Team (Late st Contact Info) Description 09/07/2020 [facility] Medical Advice [address] [address] Estella Hassan, [facility] [address] [place] [address] Social History Tobacco Use Types Packs/Day Years [...] and Family Not on file 05/31/2019 Attends Yazidi Services Not on file 05/30 Active Member [...] points; Administer PHQ-9 if positive 1 08/06/2020 [facility] of Occupat ional Health - Occupational [...] on file Legal 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 AMMONIA REFRIGERATION WORKER Gender Identity Not on file Sexual [...] st Contact Info) Description 02/01/2024 3:00 PM AMMONIA REFRIGERATION WORKER Office Visit [facility] 6341 [place] [phone] [facility] [address] [place] [address] 02/02/2024 1:30 PM AMMONIA REFRIGERATION WORKER Therapy Visit [facility] [place] [facility] [address] [facility] 300 [place] [phone] Alicja Roldan OT 909 [place] [address] 02/05/2024 8:00 PM AMMONIA REFRIGERATION WORKER Therapy Visit [facility] [address] [place] [phone] 02/13/2024 4:30 PM AMMONIA REFRIGERATION WORKER Oncology Visit [facility] 909 [place] [phone] Marian Agustin APRN [facility] [address] [facility] [address] [place] [address] 03/01/2024 7:00 AM AMMONIA REFRIGERATION WORKER Office Visit [address] [phone] Estella Hassan, [facility] 3033 [place] [address] 03/23/2024 2:00 PM AMMONIA REFRIGERATION WORKER Office Visit [facility] [address] [place] [address] [place] [address] Lizet Mann PA-C [address] [place] [address] 03/29/2024 3:30 PM AMMONIA REFRIGERATION WORKER Office Visit [facility] 2945 [facility] 200 [place] [phone] Hakeem Chacko MBBS 2945 [place] [address] 05/03/2024 3:00 PM AMMONIA REFRIGERATION WORKER Office Visit [facility] [address] [place] [phone] Gaurav Valenzuela, PHOTOGRAPHIC LITHOGRAPHER [address] 757084 05/22/2024 10:30 AM CDT Office Visit [address] [phone] Estella Hassan, [place] [address] [place] [address] 05/22/2024 11:30 AM CDT Office Visit [address] [phone] Va Glez MD [address] [place] [address] [phone] documented as of this encounter Visit Diagnoses Not on filedocumented in this encounter Additional Health Concerns Infection Onset Date Last Indicated Resolved Time Rule Out COVID-19 06/22/2021 06/22/2021 06/23/2021 8:58 PM CDT Rule Out COVID-19 01/22/2022 01/22/2022 01/24/2022 1:05 PM AMMONIA REFRIGERATION WORKER Rule Out COVID-19 01/25/2022 01/25/2022 01/25/2022 5:21 AM AMMONIA REFRIGERATION WORKER Influenza 01/25/2022 01/25/2022 02/01/2022 11:4 1 PM AMMONIA REFRIGERATION WORKER Rule Out COVID-19 07/29/2022 07/29/2022 07/31/2022 11:17 AM CDT Rule Out COVID-19 03/23/2023 03/23/2023 03/23/2023 6:30 PM AMMONIA REFRIGERATION WORKER COVID-19 03/23/2023 03/23/2023 04/13/2023 11:4 0 PM AMMONIA REFRIGERATION WORKER Rule Out COVID-19 06/05/2023 06/05/2023 06/05/2023 5:53 PM CDT Rule Out COVID-19 11/06/2023 11/06/2023 11/06/2023 11:05 PM CDT Rule Out COVID-19 11/20/2023 11/20/2023 11/20/2023 6:43 PM CDT Rule Out COVID-19 12/27/2023 12/27/2023 12/29/2023 1:37 PM CDT Assessment Noted Time PHQ-9 Depression Total Score: 7 08/08/19 21 7:03 AM CDT documented as of this encounter Care Teams Restaurant Line Server Relationship Specialty [place] [address] [place] [address] PCP - General Family Practice 07/11/14 [place] [address] [place] [address] Assigned PCP 12/16/11 Kerry Bernal RN Personal Advocate & Liaison (PAL) 01/08/19 07/10/23 Ravi Barillas DPM [address] [facility] [address] [place] [address] Assigned Musculoskeletal Provider 03/23/20 10/30/21 Christy Campuzano PA-C [address] [place] [address] 490492 Referring Physician Family Medicine 04/22/20 Hans Cannon MD [address] [place] [address] 360602 Resident Pulmonary Disease 04/22/20 Mitra Kendall, [facility] Lead Clinical Biostatistician Primary Care - CC 01/08/1901/12 Burt Jovel MD Internal Medicine 05/08/20 12/13/23 Estella Hassan, [facility] [address] [facility] [place] [place] [address] Pharmacist Pharmacist 05/26/20 Reji Chavez MD [address] [place] [phone] Assigned Heart and Vascular Provider 05/18/20 10/30/21 Elaina Moreno MD [address] [place] [address] 744295 Assigned Surgical Provider 05/18/20 11/19/22 Elaina Moreno MD 909 [place] [address] Cardiovascular & Thoracic Surgery 08/06/20 Kelsi Hassan MD 420 [facility] [address] [place] [address] Assigned Pulmonology Provider 06/28/21 02/05/22 John Webb MD [address] 860375 Cardiovascular Disease 08/25/21 John Webb MD [address] 396485 Cardiovascular Disease 08/25/21 Estella Hassan, [facility] [address] [place] [address] Assigned MTM Pharmacist 09/05/21 Nav Hughes MD [address] [place] [address] Assigned Heart and Vascular Provider 10/31/21 09/03/23 Cassandra Mendoza MD ORTHOPAEDIC SURGERY [address] [address] Assigned Musculoskeletal Provider 10/31/21 08/13/22 Estella Hassan, [facility] [address] [place] [address] Assigned MTM Pharmacist 12/09/21 Mitra Kendall, BOARD RUNNER Lead Clinical Biostatistician Primary Care - CC 01/26/2210/28 Lindsay Carey OD [address]305 [facility] [place] [address] Ophthalmology 01/29/22 Ravi Brownlee MD [address] [place] [address] 373435 Assigned Pulmonology Provider 02/06/22 09/03/23 Arabella Fishman MA Financial Resource Worker 02/22/22 02/23/22 Richard Kam MD [address] [place] [address] 209365 Assigned Musculoskeletal Provider 08/14/22 [facility] 1440 [facility] [place] [phone] Pharmacist Pharmacist 11/22/22 01/09/23 [place] [address] 738727 Assigned Neuroscience Provider 01/01/23 Rosemarie Mcdowell, RN Openstack Developer Diabetes Education 03/17/23 Ravi Brownlee MD [address] [place] [address] 027655 Assigned Heart and Vascular Provider 09/04/23 01/03/24 Mitra Kendall LSW Lead Clinical Biostatistician Primary Care - CC 12/12/23 Lizet Mann PA-C 717 [place], [place] 956195 Assigned Cancer Care Provider 01/04/24 Ravi Brownlee MD 420 [facility] [address] [place], [place] 835805 Assigned Pulmonology Provider 01/04/24 Nav Hughes MD [address] [place] 415235 Assigned Heart and Vascular Provider 01/04/24 Manuel Ahn OD 6341 [facility] [place] [address] Web Site Administrator 01/05/24 Arabella Fishman MA Financial Resource Worker 01/06/24 Thalia Charles [facility] Pharmacist Pharmacy 01/26/24 documented as of this encounter
--- OUTSIDE RECORDS SUMMARY | 2024-01-31 20:09 | XMS_ITS | Encounter Summary ---
Author Organization [place] Address [address] [place] [address] Care Team Providers Care Fishing Guide Name Role Phone Va Glez MD Primary Care Provider Va Glez MD Unavailable Kerry Bernal RN Unavailable [phone] Ravi Barillas DPM Unavailable [phone] Christy Campuzano PA-C Unavailable Hans Cannon MD Unavailable Mitra Kendall SENIOR ORACLE ADF DEVELOPER Unavailable [phone] Burt Jovel MD Unavailable [phone] Etsella Hassan [facility] Unavailable Reji Chavez MD Unavailable [phone] Josh Cordero MD, Madhuri Unavailable [phone] Josh Cordero MD, Madhuri Unavailable [phone] Kelsi Hassan MD Unavailable [phone] John Webb MD Unavailable John Webb MD Unavailable [phone] Estella Hassan [facility] Unavailable [phone] Nav Hughes MD Unavailable [phone] Cassandra Mendoza MD Unavailable Estella Hassan [facility] Unavailable [phone] Mitra Kendall SENIOR ORACLE ADF DEVELOPER Unavailable Lindsay Carey OD Unavailable TrumanRavi bajwa MD Unavailable Arabella Fishman MA Unavailable Richard Kam MD Unavailable Marisol Patel [facility] Unavailable Gaby Vila DO Unavailable [phone] Rosemarie Mcdowell RN Unavailable Ravi Brownlee MD Unavailable Mitra Kendall SENIOR ORACLE ADF DEVELOPER Unavailable Lizet Mann PA-C Unavailable Ravi Brownlee MD Unavailable [phone] Nav Hughes MD Unavailable [phone] Manuel Ahn OD Unavailable Arabella Fishman MA Unavailable [phone] Thalia Charles [facility] Unavailable Unavailable Encounter Details Date Type Department Care Team (Late st Contact Info) Description 09/09/2020 [facility] Medical Advice [address] [address] Estella Hassan, [facility] [address] [place] [address] Social History Tobacco Use Types Packs/Day Years [...] and Family Not on file 05/31/2019 Attends Buddhist Services Not on file 05/30 Active Member [...] points; Administer PHQ-9 if positive 1 08/06/2020 [facility] - Occupational [...] on file Legal 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 QUAIL FARMER Gender Identity Not on file Sexual Orientation [...] st Contact Info) Description 02/01/2024 3:00 PM QUAIL FARMER Office Visit [facility] 6[address] [place] [phone] [facility] [address] [place] [address] 02/02/2024 1:30 PM QUAIL FARMER Therapy [facility] [address] [facility] 300 [place] [phone] Alicja Roldan OT 909 [place] [address] 02/05/2024 8:00 PM QUAIL FARMER Therapy Visit [facility] [place] [address] [place] [address] 103 [place] [phone] 02/13/2024 4:30 PM QUAIL FARMER Oncology [facility] 909 [place] [phone] Marian Agustin APRN [facility] [address] [address] [facility] 207 [place] [address] 03/01/2024 7:00 AM QUAIL FARMER Office Visit [address] [phone] Estella Hassan, [facility] [address] [place] [address] 03/23/2024 2:00 PM QUAIL FARMER Office Visit [facility] [address] [place] [address] [place] [address] Lizet Mann PA-C [address] [place] [address] 03/29/2024 3:30 PM QUAIL FARMER Office Visit [facility] 2945 [facility] 200 [place] [phone] Hakeem Chacko MBBS 2945 [place] [address] 05/03/2024 3:00 PM QUAIL FARMER Office Visit [facility] [address] [place] [phone] Gaurav Valenzuela, RESEARCH BIOSTATISTICIAN [address] 092844 05/22/2024 10:30 AM CDT Office Visit [address] [phone] Estella Hassan, [place] [address] [place] [address] 05/22/2024 11:30 AM CDT Office Visit [address] [phone] Va Glez MD [address] [place] [address] [phone] documented as of this encounter Visit Diagnoses Not on filedocumented in this encounter Additional Health Concerns Infection Onset Date Last Indicated Resolved Time Rule Out COVID-19 06/22/2021 06/22/2021 06/23/2021 8:58 PM CDT Rule Out COVID-19 01/22/2022 01/22/2022 01/24/2022 1:05 PM QUAIL FARMER Rule Out COVID-19 01/25/2022 01/25/2022 01/25/2022 5:21 AM QUAIL FARMER Influenza 01/25/2022 01/25/2022 02/01/2022 11:4 1 PM QUAIL FARMER Rule Out COVID-19 07/29/2022 07/29/2022 07/31/2022 11:17 AM CDT Rule Out COVID-19 03/23/2023 03/23/2023 03/23/2023 6:30 PM QUAIL FARMER COVID-19 03/23/2023 03/23/2023 04/13/2023 11:4 0 PM QUAIL FARMER Rule Out COVID-19 06/05/2023 06/05/2023 06/05/2023 5:53 PM CDT Rule Out COVID-19 11/06/2023 11/06/2023 11/06/2023 11:05 PM CDT Rule Out COVID-19 11/20/2023 11/20/2023 11/20/2023 6:43 PM CDT Rule Out COVID-19 12/27/2023 12/27/2023 12/29/2023 1:37 PM CDT Assessment Noted Time PHQ-9 Depression Total Score: 7 08/08/19 21 7:03 AM CDT documented as of this encounter Care Teams Fishing Guide Relationship Specialty [place] [address] [place] [address] PCP - General Family Practice 07/11/14 [place] [address] [place] [address] Assigned PCP 12/16/11 Kerry Bernal RN Personal Advocate & Liaison (PAL) 01/08/19 07/10/23 Ravi Barillas DPM [address] [facility] [address] [place] [address] Assigned Musculoskeletal Provider 03/23/20 10/30/21 Christy Campuzano PA-C [address] [place] [address] 200822 Referring Physician Family Medicine 04/22/20 Hans Cannon MD [address] [place] [address] 817952 Resident Pulmonary Disease 04/22/20 Mitra Kendall, [facility] Lead Synoptic Meteorologist Primary Care - CC 01/08/1901/12 Burt Jovel MD Internal Medicine 05/08/20 12/13/23 Estella Hassan, [facility] [address] [facility] [place] [place] 372956 Pharmacist Pharmacist 05/26/20 Reji Chavez MD [address] [place] [phone] Assigned Heart and Vascular Provider 05/18/20 10/30/21 Elaina Moreno MD [address] [place] [address] 474655 Assigned Surgical Provider 05/18/20 11/19/22 Elaina Moreno MD 909 [place] [address] Cardiovascular & Thoracic Surgery 08/06/20 Kelsi Hassan MD 420 [facility] 284 [place] [address] Assigned Pulmonology Provider 06/28/21 02/05/22 John Webb MD [address] [place] [id number] Cardiovascular Disease 08/25/21 John Webb MD [address] 097745 Cardiovascular Disease 08/25/21 Estella Hassan, [facility] [address] [place] [address] Assigned MTM Pharmacist 09/05/21 Nav Hughes MD [address] [place] [address] Assigned Heart and Vascular Provider 10/31/21 09/03/23 Cassandra Mendoza MD ORTHOPAEDIC SURGERY [address] [address] Assigned Musculoskeletal Provider 10/31/21 08/13/22 Estella Hassan, [facility] [address] [place] [address] Assigned MTM Pharmacist 12/09/21 Mitra Kendall, SENIOR ORACLE ADF DEVELOPER Lead Synoptic Meteorologist Primary Care - CC 01/26/2210/28 Lindsay Carey OD 3305 [facility] [place] [address] Ophthalmology 01/29/22 Ravi Brownlee MD [address] [place] [address] 894725 Assigned Pulmonology Provider 02/06/22 09/03/23 Arabelal Fishman MA Financial Resource Worker 02/22/22 02/23/22 Richard Kam MD [address] [place] [address] 845975 Assigned Musculoskeletal Provider 08/14/22 [facility] 1440 [facility] [place] [id number] Pharmacist Pharmacist 11/22/22 01/09/23 [place] [address] 716067 Assigned Neuroscience Provider 01/01/23 Rosemarie Mcdowell, RN Invoice Coder Diabetes Education 03/17/23 Ravi Brownlee MD [address] [place] [address] 650875 Assigned Heart and Vascular Provider 09/04/23 01/03/24 Mitra Kendall LSW Lead Synoptic Meteorologist Primary Care - CC 12/12/23 Lizet Mann PA-C 717 [place], [place] 040915 Assigned Cancer Care Provider 01/04/24 Ravi Brownlee MD 420 [facility] 276 [place], [place] 283395 Assigned Pulmonology Provider 01/04/24 Nav Hughes MD [address] [place] 210[address] Assigned Heart and Vascular Provider 01/04/24 Manuel Ahn OD 6341 [facility] [place] 865532 Enameler 01/05/24 Arabella Fishman MA Financial Resource Worker 01/06/24 Thalia Charles [facility] Pharmacist Pharmacy 01/26/24 documented as of this encounter
--- OUTSIDE RECORDS SUMMARY | 2024-01-31 20:09 | XMS_ITS | Encounter Summary ---
Author Organization [place] Address [address] [place] [address] Care Team Providers Care Crimper Assembler Name Role Phone Va Glez MD Primary Care Provider [phone] Va Glez MD Unavailable Kerry Bernal RN Unavailable [phone] Ravi Barillas DPM Unavailable [phone] Christy Campuzano PA-C Unavailable Hans Cannon MD Unavailable Mitra Kendall SENIOR JAVA PROGRAMMER ANALYST Unavailable Burt Jovel MD Unavailable [phone] Estella Hassan [facility] Unavailable Reji Chavez MD Unavailable Josh Cordero MD, Madhuri Unavailable [phone] Josh Cordero MD, Madhuri Unavailable [phone] Kelsi Hassan MD Unavailable [phone] John Webb MD Unavailable [phone] John Webb MD Unavailable Estella Hassan [facility] Unavailable Nav Hughes MD Unavailable [phone] Cassandra Mendoza MD Unavailable [phone] Estella Hassan [facility] Unavailable Mitra Kendall SENIOR JAVA PROGRAMMER ANALYST Unavailable [phone] Lindsay Carey OD Unavailable Mountain HomeRavi bajwa MD Unavailable [phone] Arabella Fishman MA Unavailable [phone] Richard Kam MD Unavailable Marisol Patel [facility] Unavailable Gaby Vila DO Unavailable Rosemarie Mcdowell RN Unavailable Ravi Brownlee MD Unavailable Mitra Kendall SENIOR JAVA PROGRAMMER ANALYST Unavailable Lizet Mann PA-C Unavailable Ravi Brownlee MD Unavailable [phone] Nav Hughes MD Unavailable [phone] Manuel Ahn OD Unavailable Arabella Fishman MA Unavailable [phone] Thalia Charles [facility] Unavailable Unavailable Encounter Details Date Type Department Care Team (Late st Contact Info) Description 08/28/2020 [facility] [address] [address] Estella Hassan, [facility] [address] [place] [address] Social History Tobacco Use Types Packs/Day Years [...] and Family Not on file 05/31/2019 Attends Anabaptist Services Not on file 05/30 Active Member [...] points; Administer PHQ-9 if positive 1 08/06/2020 [facility] - Occupational [...] on file Legal 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 RACK CLEANER Gender Identity Not on file Sexual Orientation [...] st Contact Info) Description 02/01/2024 3:00 PM RACK CLEANER Office Visit [facility] 6341 [place] [phone] [facility] [address] [place] [address] 02/02/2024 1:30 PM RACK CLEANER Therapy Visit [facility] [place] [place] [address] [facility] 300 [place] [phone] Alicja Roldan OT 909 [place] [address] 02/05/2024 8:00 PM RACK CLEANER Therapy Visit [facility] [address] [place] [phone] 02/13/2024 4:30 PM RACK CLEANER Oncology Visit [facility] 909 [place] [phone] Marian Agustin APRN [facility] [address] [facility] 207 [place] [address] 03/01/2024 7:00 AM RACK CLEANER Office Visit [address] [phone] Estella Hassan, [facility] 3033 [place] [address] 03/23/2024 2:00 PM RACK CLEANER Office Visit [facility] [address] [place] [address] [place] [address] Lizet Mann PA-C [address] [place] [address] 03/29/2024 3:30 PM RACK CLEANER Office Visit [facility] 2945 [facility] 200 [place] [phone] Hakeem Chacko MBBS 2945 [place] [address] 05/03/2024 3:00 PM RACK CLEANER Office Visit [facility] [address] [place] [address] Gaurav Valenzuela, RELAY TELEGRAPHER [address] 657304 05/22/2024 10:30 AM CDT Office Visit [address] [phone] Estella Hassan, [place] [address] [place] [address] 05/22/2024 11:30 AM CDT Office Visit [address] [phone] Va Glez MD [address] [place] [address] [phone] documented as of this encounter Visit Diagnoses Not on filedocumented in this encounter Additional Health Concerns Infection Onset Date Last Indicated Resolved Time Rule Out COVID-19 06/22/2021 06/22/2021 06/23/2021 8:58 PM CDT Rule Out COVID-19 01/22/2022 01/22/2022 01/24/2022 1:05 PM RACK CLEANER Rule Out COVID-19 01/25/2022 01/25/2022 01/25/2022 5:21 AM RACK CLEANER Influenza 01/25/2022 01/25/2022 02/01/2022 11:4 1 PM RACK CLEANER Rule Out COVID-19 07/29/2022 07/29/2022 07/31/2022 11:17 AM CDT Rule Out COVID-19 03/23/2023 03/23/2023 03/23/2023 6:30 PM RACK CLEANER COVID-19 03/23/2023 03/23/2023 04/13/2023 11:4 0 PM RACK CLEANER Rule Out COVID-19 06/05/2023 06/05/2023 06/05/2023 5:53 PM CDT Rule Out COVID-19 11/06/2023 11/06/2023 11/06/2023 11:05 PM CDT Rule Out COVID-19 11/20/2023 11/20/2023 11/20/2023 6:43 PM CDT Rule Out COVID-19 12/27/2023 12/27/2023 12/29/2023 1:37 PM CDT Assessment Noted Time PHQ-9 Depression Total Score: 7 08/08/19 21 7:03 AM CDT documented as of this encounter Care Teams Crimper Assembler Relationship Specialty [place] [address] [place] [address] PCP - General Family Practice 07/11/14 [place] [address] [place] [address] Assigned PCP 12/16/11 Kerry Bernal RN Personal Advocate & Liaison (PAL) 01/08/19 07/10/23 Ravi Barillas DPM [address] [facility] [address] [place] [address] Assigned Musculoskeletal Provider 03/23/20 10/30/21 Christy Campuzano PA-C [address] [place] [address] 511362 Referring Physician Family Medicine 04/22/20 Hans Cannon MD [address] [place] [address] 565122 Resident Pulmonary Disease 04/22/20 Mitra Kendall, [facility] Lead Patient Case Manager Primary Care - CC 01/08/1901/12 Burt Jovel MD Internal Medicine 05/08/20 12/13/23 Estella Hassan, [facility] [address] [facility] [place], [place] [address] Pharmacist Pharmacist 05/26/20 Reji Chavez MD [address] [place] [phone] Assigned Heart and Vascular Provider 05/18/20 10/30/21 Elaina Moreno MD [address] [place] [address] 787415 Assigned Surgical Provider 05/18/20 11/19/22 Elaina Moreno MD 909 [place] [address] Cardiovascular & Thoracic Surgery 08/06/20 Kelsi Hassan MD 420 [facility] 284 [place] [address] Assigned Pulmonology Provider 06/28/21 02/05/22 John Webb MD [address] 345315 Cardiovascular Disease 08/25/21 John Webb MD [address] 357145 Cardiovascular Disease 08/25/21 Estella Hassan, [facility] 3033 [place] [address] Assigned MTM Pharmacist 09/05/21 Nav Hughes MD [address] [place] [address] Assigned Heart and Vascular Provider 10/31/21 09/03/23 Cassandra Mendoza MD ORTHOPAEDIC SURGERY [address] [address] Assigned Musculoskeletal Provider 10/31/21 08/13/22 Estella aHssan, [facility] [address] [place] [address] Assigned MTM Pharmacist 12/09/21 Mitra Kendall, SENIOR JAVA PROGRAMMER ANALYST Lead Patient Case Manager Primary Care - CC 01/26/2210/28 iLndsay Carey OD 3305 [facility] [place] [address] Ophthalmology 01/29/22 Ravi Brownlee MD [address] [place] [address] 047365 Assigned Pulmonology Provider 02/06/22 09/03/23 Arabella Fishman MA Financial Resource Worker 02/22/22 02/23/22 Richard Kam MD [address] [place] [address] 510975 Assigned Musculoskeletal Provider 08/14/22 [facility] 1440 [facility] [place] [phone] Pharmacist Pharmacist 11/22/22 01/09/23 [place] [address] 989647 Assigned Neuroscience Provider 01/01/23 Rosemarie Mcdowell, RN Geophysics Teacher Diabetes Education 03/17/23 Ravi Brownlee MD [address] [place] [address] 115685 Assigned Heart and Vascular Provider 09/04/23 01/03/24 Mitra Kendall LSW Lead Patient Case Manager Primary Care - CC 12/12/23 Lizet Mann PA-C 717 [place], [place] 292165 Assigned Cancer Care Provider 01/04/24 Ravi Brownlee MD 420 [facility] 276 [place], [place] 665445 Assigned Pulmonology Provider 01/04/24 Nav Hughes MD [address] [place] 852945 Assigned Heart and Vascular Provider 01/04/24 Manuel Ahn OD 6341 [facility] [place] PR 852142 Merchandise Worker 01/05/24 Arabella Fishman MA Financial Resource Worker 01/06/24 Thalia Charles [facility] Pharmacist Pharmacy 01/26/24 documented as of this encounter
--- OUTSIDE RECORDS SUMMARY | 2024-01-31 20:10 | XMS_ITS | Encounter Summary ---
Author Organization [facility] Address [address] [place] [address] Care Team Providers Care Chemist Inorganic Name Role Phone Va Glez MD Primary Care Provider [phone] Va Glez MD Unavailable Kerry Bernal RN Unavailable [phone] Ravi Barillas DPM Unavailable [phone] Christy Campuzano PA-C Unavailable Hans Cannon MD Unavailable [phone] Mitra Kendall CELLOPHANER Unavailable [phone] Burt Jovel MD Unavailable Estella Hassan [facility] Unavailable Reji Chavez MD Unavailable [phone] Josh Cordero MD, Madhuri Unavailable [phone] Josh Cordero MD, Madhuri Unavailable [phone] Kelsi Hassan MD Unavailable [phone] John Webb MD Unavailable [phone] John Webb MD Unavailable Estella Hassan [facility] Unavailable Nav Hughes MD Unavailable [phone] Cassandra Mendoza MD Unavailable Estella Hassan H Unavailable Mitra Kendall CELLOPHANER Unavailable [phone] Aurelio Lindsay Kenzie OD Unavailable Ravi Brownlee MD Unavailable Arabella Fishman MA Unavailable [phone] Richard Kam MD Unavailable Marisol Patel [facility] Unavailable Gaby Vila DO Unavailable Rosemarie Mcdowell RN Unavailable Ravi Brownlee MD Unavailable Mitra Kendall CELLOPHANER Unavailable Lizet Mann PA-C Unavailable Ravi Brownlee MD Unavailable Nav Hughes MD Unavailable [phone] Manuel Ahn OD Unavailable [phone] Arabella Fishman MA Unavailable [phone] Thalia Charles [facility] Unavailable Unavailable Encounter Details Date Type Department Care Team (Late st Contact Info) Description 07/27/2020 [facility] [address] [place] [phone] Elaina Moreno MD [address] [place] [address] Social History Tobacco Use Types Packs/Day [...] and Family Not on file 05/31/2019 Attends Orthodox Services Not on file 05/30 Active Member [...] 05/31/2019 PHQ-2 Answer Date Recorded PHQ-2 Score 2 07/28/2020 [facility] of Occupat ional Health - Occupational Stress [...] on file Legal 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 PHYSICIST NUCLEAR Gender Identity Not on file Sexual Orientation Not on file Occupation Industry Job Start Date Job End Date Not on file Not on file Not on file Not on file COVID-19 Exposure Response Date Recorded In the last month, have you been in contact with someone who was confirmed or suspected to have Coronavirus / COVID-19? No / Unsure 07/23/2020 5:23 AM CDT documented as of this encounter Plan of Treatment Upcoming Encounters Date Type Department Care Team (Late st Contact Info) Description 02/01/2024 3:00 PM PHYSICIST NUCLEAR Office Visit [facility] [address] [place] [phone] Manuel Ahn, [address] [place] [address] 02/02/2024 1:30 PM PHYSICIST NUCLEAR Therapy Visit [facility] [address] [facility] [address] [place] [phone] Alicja Roldan OT 909 [place] [address] 02/05/2024 8:00 PM PHYSICIST NUCLEAR Therapy Visit [facility] [address] [place] [phone] 02/13/2024 4:30 PM PHYSICIST NUCLEAR Oncology Visit [facility] 9[address] [place] [phone] Marian Agustin, NESSA PRODUCTION STATISTICAL CLERK [address] [facility] [address] [place], [place] 5[address] 03/01/2024 7:00 AM PHYSICIST NUCLEAR Office Visit [facility] [address] [place] [phone] Estella Hassan, [facility] [address] [place] [address] 03/23/2024 2:00 PM PHYSICIST NUCLEAR Office Visit [facility] [address] [place] [address] Lizet Mann PA-C 717 [place] [address] 03/29/2024 3:30 PM PHYSICIST NUCLEAR Office Visit [facility] 2945 [facility] 200 [place] [phone] Hakeem Chacko MBBS 2945 [place] [address] 05/03/2024 3:00 PM PHYSICIST NUCLEAR Office Visit [facility] [address] [place] [phone] Gaurav Valenzuela, DAIRY EQUIPMENT SPECIALIST [facility] [address] [place] [address] [phone] 05/22/2024 10:30 AM CDT Office Visit [address] [phone] Estella Hassan, [facility] [address] [place] [address] 05/22/2024 11:30 AM CDT Office Visit [address] [address] Va Glez MD [address] [place] [address] [phone] documented as of this encounter Visit Diagnoses Not on filedocumented in this encounter Additional Health Concerns Infection Onset Date Last Indicated Resolved Time Rule Out COVID-19 06/22/2021 06/22/2021 06/23/2021 8:58 PM CDT Rule Out COVID-19 01/22/2022 01/22/2022 01/24/2022 1:05 PM PHYSICIST NUCLEAR Rule Out COVID-19 01/25/2022 01/25/2022 01/25/2022 5:21 AM PHYSICIST NUCLEAR Influenza 01/25/2022 01/25/2022 02/01/2022 11:4 1 PM PHYSICIST NUCLEAR Rule Out COVID-19 07/29/2022 07/29/2022 07/31/2022 11:17 AM CDT Rule Out COVID-19 03/23/2023 03/23/2023 03/23/2023 6:30 PM PHYSICIST NUCLEAR COVID-19 03/23/2023 03/23/2023 04/13/2023 11:4 0 PM PHYSICIST NUCLEAR Rule Out COVID-19 06/05/2023 06/05/2023 06/05/2023 5:53 PM CDT Rule Out COVID-19 11/06/2023 11/06/2023 11/06/2023 11:05 PM CDT Rule Out COVID-19 11/20/2023 11/20/2023 11/20/2023 6:43 PM CDT Rule Out COVID-19 12/27/2023 12/27/2023 12/29/2023 1:37 PM CDT Assessment Noted Time PHQ-9 Depression Total Score: 7 07/29/19 21 7:03 AM CDT documented as of this encounter Care Teams Chemist Inorganic Relationship Specialty [place] [address] [place] [address] PCP - General Family Practice 07/11/14 [place] [address] [place] [address] Assigned PCP 12/16/11 Kerry Bernal RN Personal Advocate & Liaison (PAL) 01/08/19 07/10/23 Ravi Barillas DPM [address] [facility] [address] [place] [address] Assigned Musculoskeletal Provider 03/23/20 10/30/21 Christy Campuzano PA-C [address] [place] [address] [phone] Referring Physician Family Medicine 04/22/20 Hans Cannon MD [address] [place] [address] [phone] Resident Pulmonary Disease 04/22/20 Mitra Kendall, [facility] Lead Helper Driver Primary Care - CC 01/08/1901/12 Burt Jovel MD Internal Medicine 05/08/20 12/13/23 Estella Hassan, [facility] [address] [place], [place] [phone] Pharmacist Pharmacist 05/26/20 Reji Chavez MD [address] [place] [phone] Assigned Heart and Vascular Provider 05/18/20 10/30/21 Elaina Moreno MD [address] [place] [address] Assigned Surgical Provider 05/18/20 11/19/22 Elaina Moreno MD 909 [place] [address] Cardiovascular & Thoracic Surgery 08/06/20 Kelsi Hassan MD [address] [place] [address] 284 [place] [address] Assigned Pulmonology Provider 06/28/21 02/05/22 John Webb MD [address] [place] [address] Cardiovascular Disease 08/25/21 John Webb MD [address] [place] [address] Cardiovascular Disease 08/25/21 Estella Hassan, [facility] [address] [place] [address] Assigned MTM Pharmacist 09/05/21 Nav Hughes MD [address] [place] [address] Assigned Heart and Vascular Provider 10/31/21 09/03/23 Cassandra Mendoza MD ORTHOPAEDIC SURGERY [address] [address] Assigned Musculoskeletal Provider 10/31/21 08/13/22 Estella Hassan, [facility] [address] [place] [address] Assigned MTM Pharmacist 12/09/21 Mitra Kendall, [facility] Lead Helper Driver Primary Care - CC 01/26/2210/28 Lindsay Carey OD [address] [facility] [place] [address] Ophthalmology 01/29/22 Ravi Brownlee MD [address] [place] [address] 276 [place], [place] 0[address]65 Assigned Pulmonology Provider 02/06/22 09/03/23 Arabella Fishman MA Financial Resource Worker 02/22/22 02/23/22 Richard Kam MD [address] [place] [address] 066535 Assigned Musculoskeletal Provider 08/14/22 [facility] [address] [facility] [address] [place] [phone] Pharmacist Pharmacist 11/22/22 01/09/23 [place] [address] [address] Assigned Neuroscience Provider 01/01/23 Rosemarie Mcdowell, RN Sheriff Detective Diabetes Education 03/17/23 Ravi Brownlee MD [address] [place] [address] 276 [place], [place] [address]155 Assigned Heart and Vascular Provider 09/04/23 01/03/24 Mitra Kendall, [facility] Lead Helper Driver Primary Care - CC 12/12/23 Lizet Mann PA-C [address] [place] [address] Assigned Cancer Care Provider 01/04/24 Ravi Brownlee MD [address] [facility] [address] [place], [place] 4744[address] Assigned Pulmonology Provider 01/04/24 Nav Hughes MD [address] [facility] [place] [id number] Assigned Heart and Vascular Provider 01/04/24 Manuel Ahn OD [address] [facility] [address] [place] [id number] Windows Systems Administrator 01/05/24 Arabella Fishman MA Financial Resource Worker 01/06/24 Thalia Charles [facility] Pharmacist Pharmacy 01/26/24 documented as of this encounter
--- OUTSIDE RECORDS SUMMARY | 2024-01-31 20:10 | XMS_ITS | Encounter Summary ---
Author Organization [facility] Address [address] [place] [address] Care Team Providers Care Director Of Business Systems Name Role Phone Va Glez MD Primary Care Provider Va Glez MD Unavailable Kerry Bernal RN Unavailable [phone] Ravi Barillas DPM Unavailable [phone] Christy Campuzano PA-C Unavailable Hans Cannon MD Unavailable Mitra Kendall [employer] Unavailable Burt Jovel MD Unavailable Estella Hassan [facility] Unavailable Reji Chavez MD Unavailable [phone] Josh Cordero MD, Madhuri Unavailable [phone] Josh Cordero MD, Madhuri Unavailable [phone] Kelsi Hassan MD Unavailable [phone] John Webb MD Unavailable [phone] John Webb MD Unavailable Estella Hassan [facility] Unavailable Nav Hughes MD Unavailable [phone] Cassandra Mendoza MD Unavailable Estella Hassan [facility] Unavailable Mitra Kendall [employer] Unavailable Lindsay Carey OD Unavailable [place] MD Unavailable Arabella Fishman MA Unavailable Richard Kam MD Unavailable Marisol Patel [facility] Unavailable Gaby Vila DO Unavailable [phone] Rosemarie Mcdowell RN Unavailable [phone] Ravi Brownlee MD Unavailable Mitra Kendall [employer] Unavailable Lizet Mann PA-C Unavailable Ravi Brownlee MD Unavailable Nav Hughes MD Unavailable [phone] Manuel Ahn OD Unavailable [phone] Arabella Fishman MA Unavailable [phone] Thalia Charles [facility] Unavailable Unavailable Encounter Details Date Type Department Care Team (Late st Contact Info) Description 08/08/2020 [facility] [address] [address] Estella Hassan, [facility] 30[address] [place] [address] Social History Tobacco Use Types Packs/Day Years [...] and Family Not on file 05/31/2019 Attends Oriental [employer] Services Not on file 05/30 Active [...] points; Administer PHQ-9 if positive 1 08/06/2020 [facility] of Occupat ional Health - [...] on file Legal 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 DERMATOLOGY TECHNICIAN Gender Identity Not on file Sexual Orientation Not on file Occupation Industry Job Start Date Job End Date Not on file Not on file Not on file Not on file COVID-19 Exposure Response Date Recorded In the last month, have you been in contact with someone who was confirmed or suspected to have Coronavirus / COVID-19? No / Unsure 08/08/2020 2:29 PM CDT documented as of this encounter Plan of Treatment Upcoming Encounters Date Type Department Care Team (Late st Contact Info) Description 02/01/2024 3:00 PM DERMATOLOGY TECHNICIAN Office Visit [facility] 6[address] [place] [phone] [facility] [address] [place] [address] 02/02/2024 1:30 PM DERMATOLOGY TECHNICIAN Therapy Visit [facility] [place] [address] [facility] 300 [place] [phone] Alicja Roldan OT 909 [place] [address] 02/05/2024 8:00 PM DERMATOLOGY TECHNICIAN Therapy Visit [facility] [address] 103 [place] [phone] 02/13/2024 4:30 PM DERMATOLOGY TECHNICIAN Oncology Visit [facility] 909 [place] [phone] Marian Agustin APRN [facility] [address] [facility] 207 [place] [address] 03/01/2024 7:00 AM DERMATOLOGY TECHNICIAN Office Visit [address] [phone] Estella Hassan, [facility] [address] [place] [address] 03/23/2024 2:00 PM DERMATOLOGY TECHNICIAN Office Visit [facility] [address] [place] [address] [place] [address] Lizet Mann PA-C [address] [place] [address] 03/29/2024 3:30 PM DERMATOLOGY TECHNICIAN Office Visit [facility] 2945 [facility] 200 [place] [address] Hakeem Chacko MBBS 2945 [place] [address] 05/03/2024 3:00 PM DERMATOLOGY TECHNICIAN Office [facility] [address] [place] [address] Gaurav Valenzuela, SUPERVISOR [employer] [address] [address] 05/22/2024 10:30 AM CDT Office Visit [address] [phone] Estella Hassan, [place] [address] [place] [address] 05/22/2024 11:30 AM CDT Office Visit [address] [phone] Va Glez MD [address] [place] [address] [phone] documented as of this encounter Visit Diagnoses Not on filedocumented in this encounter Additional Health Concerns Infection Onset Date Last Indicated Resolved Time Rule Out COVID-19 06/22/2021 06/22/2021 06/23/2021 8:58 PM CDT Rule Out COVID-19 01/22/2022 01/22/2022 01/24/2022 1:05 PM DERMATOLOGY TECHNICIAN Rule Out COVID-19 01/25/2022 01/25/2022 01/25/2022 5:21 AM DERMATOLOGY TECHNICIAN Influenza 01/25/2022 01/25/2022 02/01/2022 11:4 1 PM DERMATOLOGY TECHNICIAN Rule Out COVID-19 07/29/2022 07/29/2022 07/31/2022 11:17 AM CDT Rule Out COVID-19 03/23/2023 03/23/2023 03/23/2023 6:30 PM DERMATOLOGY TECHNICIAN COVID-19 03/23/2023 03/23/2023 04/13/2023 11:4 0 PM DERMATOLOGY TECHNICIAN Rule Out COVID-19 06/05/2023 06/05/2023 06/05/2023 5:53 PM CDT Rule Out COVID-19 11/06/2023 11/06/2023 11/06/2023 11:05 PM CDT Rule Out COVID-19 11/20/2023 11/20/2023 11/20/2023 6:43 PM CDT Rule Out COVID-19 12/27/2023 12/27/2023 12/29/2023 1:37 PM CDT Assessment Noted Time PHQ-9 Depression Total Score: 7 08/08/19 21 7:03 AM CDT documented as of this encounter Care Teams Director Of Business Systems Relationship Specialty [place] [address] [place] [address] PCP - General Family Practice 07/11/14 [place] [address] [place] [address] Assigned PCP 12/16/11 Kerry Bernal RN Personal Advocate & Liaison (PAL) 01/08/19 07/10/23 Ravi Barillas DPM [address] [facility] [address] [place] [address] Assigned Musculoskeletal Provider 03/23/20 10/30/21 Christy Campuzano PA-C [address] [place] [address] 146152 Referring Physician Family Medicine 04/22/20 Hans Cannon MD [address] [place] [address] [phone] Resident Pulmonary Disease 04/22/20 Mitra Kendall, [facility] Lead Warehouse Helper Primary Care - CC 01/08/1901/12 Burt Jovel MD Internal Medicine 05/08/20 12/13/23 Estella Hassan, [facility] 3033 [facility] [place], [place] [address] Pharmacist Pharmacist 05/26/20 Reji Chavez MD [address] [place] [phone] Assigned Heart and Vascular Provider 05/18/20 10/30/21 Elaina Moreno MD [address] [place] [address] [id number] Assigned Surgical Provider 05/18/20 11/19/22 Elaina Moreno MD 909 [place] [address] Cardiovascular & Thoracic Surgery 08/06/20 Kelsi Hassan MD 420 [facility] 284 [place] [address] Assigned Pulmonology Provider 06/28/21 02/05/22 John Webb MD [address] 568265 Cardiovascular Disease 08/25/21 John Webb MD [address] 941975 Cardiovascular Disease 08/25/21 Estella Hassan, [facility] 30[address] [place] [address] Assigned MTM Pharmacist 09/05/21 Nav Hughes MD [address] [place] [address] Assigned Heart and Vascular Provider 10/31/21 09/03/23 Cassandra Mendoza MD ORTHOPAEDIC SURGERY [address] [address] Assigned Musculoskeletal Provider 10/31/21 08/13/22 Estella Hassan, [facility] [address] [place] [address] Assigned MTM Pharmacist 12/09/21 Mitra Kendall, [employer] Lead Warehouse Helper Primary Care - CC 01/26/2210/28 Lindsay Carey OD 3305 [facility] [place] [place] [address] Ophthalmology 01/29/22 Ravi Brownlee MD [address] [place] [address] [phone] Assigned Pulmonology Provider 02/06/22 09/03/23 Arabella Fishman MA Financial Resource Worker 02/22/22 02/23/22 Richard Kam MD [address] [place] [address] [id number] Assigned Musculoskeletal Provider 08/14/22 [facility] 1440 [facility] [address] [place] [phone] Pharmacist Pharmacist 11/22/22 01/09/23 [place] [address] 889707 Assigned Neuroscience Provider 01/01/23 Rosemarie Mcdowell, RN Kraft Digester Operator Diabetes Education 03/17/23 Ravi Brownlee MD [address] [place] [address] [id number] Assigned Heart and Vascular Provider 09/04/23 01/03/24 Mitra Kendall LSW Lead Warehouse Helper Primary Care - CC 12/12/23 Lizet Mann PA-C 717 [place], [place] 343215 Assigned Cancer Care Provider 01/04/24 Ravi Brownlee MD 420 [facility] 276 [place], [place] 944455 Assigned Pulmonology Provider 01/04/24 Nav Hughes MD [address] [place] 10[address] Assigned Heart and Vascular Provider 01/04/24 Manuel Ahn OD 6341 [facility] [place] [id number] Financial Compliance Manager 01/05/24 Arabella Fishman MA Financial Resource Worker 01/06/24 Thalia Charles [facility] Pharmacist Pharmacy 01/26/24 documented as of this encounter
--- OUTSIDE RECORDS SUMMARY | 2024-01-31 20:10 | XMS_ITS | Encounter Summary ---
Author Organization [facility] Address [address] [place] [address] Care Team Providers Care Manager Of Patient Name Role Phone Va Glez MD Primary Care Provider Va Glez MD Unavailable Kerry Bernal RN Unavailable [phone] Ravi Barillas DPM Unavailable [phone] Christy Campuzano PA-C Unavailable Hans Cannon MD Unavailable Mitra Kendall LAWN SPRINKLER INSTALLER Unavailable Burt Jovel MD Unavailable [phone] Estella Hassan [facility] Unavailable Reji Chavez MD Unavailable Josh Cordero MD, Madhuri Unavailable [phone] Josh Cordero MD, Madhuri Unavailable [phone] Kelsi Hassan MD Unavailable [phone] John Webb MD Unavailable [phone] John Webb MD Unavailable sEtella Hassan [facility] Unavailable Nav Hughes MD Unavailable [phone] Cassandra Mendoza MD Unavailable [phone] Estella Hassan [facility] Unavailable Mirta Kendall LAWN SPRINKLER INSTALLER Unavailable Lindsay Carey OD Unavailable JarrattRavi bajwa MD Unavailable Arabella Fishman MA Unavailable Richard Kam MD Unavailable Marisol Patel [facility] Unavailable Gaby Vila DO Unavailable Rosemarie Mcdowell RN Unavailable [phone] Ravi Brownlee MD Unavailable Mitra Kendall LAWN SPRINKLER INSTALLER Unavailable Lizet Mann PA-C Unavailable Ravi Brownlee MD Unavailable Nav Hughes MD Unavailable [phone] Manuel Ahn OD Unavailable Arabella Fishman MA Unavailable [phone] Thalia Charles [facility] Unavailable Unavailable Encounter Details Date Type Department Care Team (Late st Contact Info) Description 08/08/2020 [facility] [place] [place] Medical Advice [address] [address] Estella Hassan, [facility] [address] [place] [address] Social History Tobacco Use Types Packs/Day Years [...] points; Administer PHQ-9 if positive 1 08/06/2020 [facility] [...] on file Legal 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 HEDDLER Gender Identity Not on file Sexual Orientation [...] st Contact Info) Description 02/01/2024 3:00 PM HEDDLER Office Visit [facility] 6341 [place] [phone] [facility] [address] [place] [address] 02/02/2024 1:30 PM HEDDLER Therapy Visit [facility] [address] [facility] 300 [place] [phone] Alicja Roldan OT 909 [place] [address] 02/05/2024 8:00 PM HEDDLER Therapy Visit [facility] [address] [place] [phone] 02/13/2024 4:30 PM HEDDLER Oncology Visit [facility] 909 [place] [phone] Marian Agustin APRN [facility] [address] [facility] 207 [place] [address] 03/01/2024 7:00 AM HEDDLER Office Visit [address] [phone] Estella Hassan, [facility] [address] [place] [address] 03/23/2024 2:00 PM HEDDLER Office Visit [facility] [address] [place] [address] [place] [address] Lizet Mann PA-C [address] [place] [address] 03/29/2024 3:30 PM HEDDLER Office Visit [facility] 2945 [facility] 200 [place] [phone] Hakeem Chacko MBBS 2945 [place] [address] 05/03/2024 3:00 PM HEDDLER Office Visit [facility] [address] [place] [phone] Gaurav Valenzuela, HARNESSMAKER [address] 276[address] 05/22/2024 10:30 AM CDT Office Visit [address] [phone] Estella Hassan, [place] 6[address] [place] [address] 05/22/2024 11:30 AM CDT Office Visit [address] [phone] Va Glez MD [address] [place] [address] [phone] documented as of this encounter Visit Diagnoses Not on filedocumented in this encounter Additional Health Concerns Infection Onset Date Last Indicated Resolved Time Rule Out COVID-19 06/22/2021 06/22/2021 06/23/2021 8:58 PM CDT Rule Out COVID-19 01/22/2022 01/22/2022 01/24/2022 1:05 PM HEDDLER Rule Out COVID-19 01/25/2022 01/25/2022 01/25/2022 5:21 AM HEDDLER Influenza 01/25/2022 01/25/2022 02/01/2022 11:4 1 PM HEDDLER Rule Out COVID-19 07/29/2022 07/29/2022 07/31/2022 11:17 AM CDT Rule Out COVID-19 03/23/2023 03/23/2023 03/23/2023 6:30 PM HEDDLER COVID-19 03/23/2023 03/23/2023 04/13/2023 11:4 0 PM HEDDLER Rule Out COVID-19 06/05/2023 06/05/2023 06/05/2023 5:53 PM CDT Rule Out COVID-19 11/06/2023 11/06/2023 11/06/2023 11:05 PM CDT Rule Out COVID-19 11/20/2023 11/20/2023 11/20/2023 6:43 PM CDT Rule Out COVID-19 12/27/2023 12/27/2023 12/29/2023 1:37 PM CDT Assessment Noted Time PHQ-9 Depression Total Score: 7 08/08/19 21 7:03 AM CDT documented as of this encounter Care Teams Manager Of Patient Relationship Specialty [place] [address] [place] [address] PCP - General Family Practice 07/11/14 [place] [address] [place] [address] Assigned PCP 12/16/11 Kerry Bernal RN Personal Advocate & Liaison (PAL) 01/08/19 07/10/23 Ravi Barillas DPM [address] [facility] [address] [place] [address] Assigned Musculoskeletal Provider 03/23/20 10/30/21 Christy Campuzano PA-C [address] [place] [address] [id number] Referring Physician Family Medicine 04/22/20 Hans Cannon MD [address] [place] [address] [phone] Resident Pulmonary Disease 04/22/20 Mitra Kendall, [facility] Lead Special Class Welder Primary Care - CC 01/08/1901/12 Burt Jovel MD Internal Medicine 05/08/20 12/13/23 Estella Hassan, [facility] 3033 [facility] [place], [place] [address] Pharmacist Pharmacist 05/26/20 Reji Chavez MD [address] [place] [phone] Assigned Heart and Vascular Provider 05/18/20 10/30/21 Elaina Moreno MD [address] [place] [address] 475275 Assigned Surgical Provider 05/18/20 11/19/22 Elaina Moreno MD 909 [place] [address] Cardiovascular & Thoracic Surgery 08/06/20 Kelsi Hassan MD 420 [facility] 284 [place] [address] Assigned Pulmonology Provider 06/28/21 02/05/22 John Webb MD [address] [phone] Cardiovascular Disease 08/25/21 John Webb MD [address] 472145 Cardiovascular Disease 08/25/21 Estella Hassan, [facility] 30[address] [place] [address] Assigned MTM Pharmacist 09/05/21 Nav Hughes MD [address] [place] [address] Assigned Heart and Vascular Provider 10/31/21 09/03/23 Cassandra Mendoza MD ORTHOPAEDIC SURGERY [address] [address] Assigned Musculoskeletal Provider 10/31/21 08/13/22 Estella Hassan, [facility] [address] [place] [address] Assigned MTM Pharmacist 12/09/21 Mitra Kendall, LAWN SPRINKLER INSTALLER Lead Special Class Welder Primary Care - CC 01/26/2210/28 Lindsay Carey OD 3[address] [facility] [place] [address] Ophthalmology 01/29/22 Ravi Brownlee MD [address] [place] [address] 069805 Assigned Pulmonology Provider 02/06/22 09/03/23 Arabella Fishman MA Financial Resource Worker 02/22/22 02/23/22 Richard Kam MD [address] [place] [address] [phone] Assigned Musculoskeletal Provider 08/14/22 [facility] 1440 [facility] [place] [place] [phone] Pharmacist Pharmacist 11/22/22 01/09/23 [place] [address] 910247 Assigned Neuroscience Provider 01/01/23 Rosemarie Mcdowell, RN Eeg Tech Diabetes Education 03/17/23 Ravi Brownlee MD [address] [place] [address] [id number] Assigned Heart and Vascular Provider 09/04/23 01/03/24 Mitra Kendall LSW Lead Special Class Welder Primary Care - CC 12/12/23 Lizet Mann PA-C 717 [place], [place] 665135 Assigned Cancer Care Provider 01/04/24 Ravi Brownlee MD 420 [facility] 276 [place], [place] 261385 Assigned Pulmonology Provider 01/04/24 Nav Hughes MD [address] [place] [phone] Assigned Heart and Vascular Provider 01/04/24 Manuel Ahn OD 6341 [facility] 114542 Farm Worker 01/05/24 Arabella Fishman MA Financial Resource Worker 01/06/24 Thalia Charles [facility] Pharmacist Pharmacy 01/26/24 documented as of this encounter
--- OUTSIDE RECORDS SUMMARY | 2024-01-31 20:10 | XMS_ITS | Encounter Summary ---
Author Organization [facility] Address [address] [place] [address] Care Team Providers Care Mission Coordinator Name Role Phone Va Glez MD Primary Care Provider Va Glez MD Unavailable Kerry Bernal RN Unavailable [phone] Ravi Barillas DPM Unavailable [phone] Christy Campuzano PA-C Unavailable Hans Cannon MD Unavailable Mitra Kendall TRACK MANAGER Unavailable Burt Jovel MD Unavailable Estella Hassan [facility] Unavailable [phone] Reji Chavez MD Unavailable Josh Cordero MD, Madhuri Unavailable [phone] Josh Cordero MD, Madhuri Unavailable [phone] Kelsi Hassan MD Unavailable [phone] John Webb MD Unavailable [phone] John Webb MD Unavailable Estella Hassan [facility] Unavailable Nav Hughes MD Unavailable [phone] Cassandra Mendoza MD Unavailable [phone] Estella Hassan H Unavailable Mitra Kendall TRACK MANAGER Unavailable Lindsay Carey OD Unavailable Ravi Brownlee MD Unavailable Arabella Fishman MA Unavailable [phone] Richard Kam MD Unavailable Marisol Patel [facility] Unavailable Gaby Vila DO Unavailable Rosemarie Mcdowell RN Unavailable Ravi Brownlee MD Unavailable Mitra Kendall TRACK MANAGER Unavailable Lizet Mann PA-C Unavailable Ravi Brownlee MD Unavailable Nav Hughes MD Unavailable [phone] Manuel Ahn OD Unavailable Arabella Fishman MA Unavailable [phone] Thalia Charles [facility] Unavailable Unavailable Encounter Details Date Type Department Care Team (Late st Contact Info) Description 08/05/2020 [facility] 909 [facility] [place] [address] Marian Agustin APRN [facility] [address] [facility] 207 [place] [address] Social History Tobacco Use Types [...] points; Administer PHQ-9 if positive 1 08/06/2020 [facility] - Occupational [...] on file Legal 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 BATTERY STACKER Gender Identity Not on file Sexual Orientation [...] st Contact Info) Description 02/01/2024 3:00 PM BATTERY STACKER Office Visit [facility] [address] [place] [phone] Manuel Ahn, [address] [place] [address] 02/02/2024 1:30 PM BATTERY STACKER Therapy Visit [facility] [address] [facility] [address] [place] [phone] Alicja Roldan, BETY 909 [place] [address] 02/05/2024 8:00 PM BATTERY STACKER Therapy Visit [facility] [place] [address] [place] [address] 103 [place] [phone] 02/13/2024 4:30 PM BATTERY STACKER Oncology Visit [facility] 909 [place] [phone] Marian Agustin, NESSA RAM PRESS OPERATOR [address] [facility] 207 [place] [address] 03/01/2024 7:00 AM BATTERY STACKER Office Visit [address] [phone] Estella Hassan, [facility] 3033 [place] [address] 03/23/2024 2:00 PM BATTERY STACKER Office Visit [facility] [address] [place] [address] [place] [address] Lizet Mann PA-C [address] [place] [address] 03/29/2024 3:30 PM BATTERY STACKER Office Visit [facility] 2945 [facility] 200 [place] [phone] Hakeem Chacko MBBS 2945 [place] [address] 05/03/2024 3:00 PM BATTERY STACKER Office Visit [facility] [address] [place] [address] Gaurav Valenzuela, CAREER DEVELOPMENT COORDINATOR [address] [address] 05/22/2024 10:30 AM CDT Office Visit [address] [phone] Estella Hassan, [place] [address]20[address] [place] [address] 05/22/2024 11:30 AM CDT Office Visit [address] [phone] [place] [address] [place], [place] [phone] documented as of this encounter Visit Diagnoses Not on filedocumented in this encounter Additional Health Concerns Infection Onset Date Last Indicated Resolved Time Rule Out COVID-19 06/22/2021 06/22/2021 06/23/2021 8:58 PM CDT Rule Out COVID-19 01/22/2022 01/22/2022 01/24/2022 1:05 PM BATTERY STACKER Rule Out COVID-19 01/25/2022 01/25/2022 01/25/2022 5:21 AM BATTERY STACKER Influenza 01/25/2022 01/25/2022 02/01/2022 11:4 1 PM BATTERY STACKER Rule Out COVID-19 07/29/2022 07/29/2022 07/31/2022 11:17 AM CDT Rule Out COVID-19 03/23/2023 03/23/2023 03/23/2023 6:30 PM BATTERY STACKER COVID-19 03/23/2023 03/23/2023 04/13/2023 11:4 0 PM BATTERY STACKER Rule Out COVID-19 06/05/2023 06/05/2023 06/05/2023 5:53 PM CDT Rule Out COVID-19 11/06/2023 11/06/2023 11/06/2023 11:05 PM CDT Rule Out COVID-19 11/20/2023 11/20/2023 11/20/2023 6:43 PM CDT Rule Out COVID-19 12/27/2023 12/27/2023 12/29/2023 1:37 PM CDT Assessment Noted Time PHQ-9 Depression Total Score: 7 07/29/19 21 7:03 AM CDT documented as of this encounter Care Teams Mission Coordinator Relationship Specialty [place] [address] [place] [address] PCP - General Family Practice 07/11/14 [place] [address] [place] [address] Assigned PCP 12/16/11 Kerry Bernal RN Personal Advocate & Liaison (PAL) 01/08/19 07/10/23 Ravi Barillas DPM [address] [facility] [address] [place] [address] Assigned Musculoskeletal Provider 03/23/20 10/30/21 Christy Campuzano PA-C [address] [place] [address] 466382 Referring Physician Family Medicine 04/22/20 Hans Cannon MD [address] [place] [address] 249412 Resident Pulmonary Disease 04/22/20 Mitra Kendall, [facility] Lead Sprinkler Tender Primary Care - CC 01/08/1901/12 Burt Jovel MD Internal Medicine 05/08/20 12/13/23 Estella Hassan, [facility] [address] [place], [place] 195306 Pharmacist Pharmacist 05/26/20 Reji Chavez MD [address] [place] [phone] Assigned Heart and Vascular Provider 05/18/20 10/30/21 Elaina Moreno MD [address] [place] [address] [phone] Assigned Surgical Provider 05/18/20 11/19/22 Elaina Moreno MD 909 [place] [address] Cardiovascular & Thoracic Surgery 08/06/20 Kelsi Hassan MD 420 [facility] 284 [place] [address] Assigned Pulmonology Provider 06/28/21 02/05/22 John Webb MD [address] 301865 Cardiovascular Disease 08/25/21 John Webb MD [address] 733845 Cardiovascular Disease 08/25/21 Estella Hassan, [facility] 3033 [place] [address] Assigned MTM Pharmacist 09/05/21 Nav Hughes MD [address] [place] 714795 Assigned Heart and Vascular Provider 10/31/21 09/03/23 Cassandra Mendoza MD ORTHOPAEDIC SURGERY [address] 328484 Assigned Musculoskeletal Provider 10/31/21 08/13/22 Estlela Hassan, [facility] [address] [place] [address] Assigned MTM Pharmacist 12/09/21 Mitra Kendall, TRACK MANAGER Lead Sprinkler Tender Primary Care - CC 01/26/2210/28 Lindsay Carey OD [address] [facility] [place] [address] Ophthalmology 01/29/22 Ravi Brownlee MD [address] [place] [address] 847425 Assigned Pulmonology Provider 02/06/22 09/03/23 Arabella Fishman MA Financial Resource Worker 02/22/22 02/23/22 Richard Kam MD [address] [place] [address] 669685 Assigned Musculoskeletal Provider 08/14/22 [facility] [address] [place] [phone] Pharmacist Pharmacist 11/22/22 01/09/23 [place] [address] 553397 Assigned Neuroscience Provider 01/01/23 Rosemarie Mcdowell, RN Sales And Training Specialist Diabetes Education 03/17/23 Ravi Brownlee MD [address] [place] [address] 969895 Assigned Heart and Vascular Provider 09/04/23 01/03/24 Mitra Kendall LSW Lead Sprinkler Tender Primary Care - CC 12/12/23 Lizet Mann PA-C 717 [place], [place] 347185 Assigned Cancer Care Provider 01/04/24 Ravi Brownlee MD 420 [facility] 276 [place], [place] 899205 Assigned Pulmonology Provider 01/04/24 Nav Hughes MD [address] [place] [address] [place] [id number] Assigned Heart and Vascular Provider 01/04/24 Manuel Ahn OD 6341 [facility] [place] 015182 Mason Liner 01/05/24 Arabella Fishman MA Financial Resource Worker 01/06/24 Thalia Charles [facility] Pharmacist Pharmacy 01/26/24 documented as of this encounter
--- OUTSIDE RECORDS SUMMARY | 2024-01-31 20:10 | XMS_ITS | Encounter Summary ---
Author Organization [place] Address [address] [place] [address] Care Team Providers Care Financial Services Manager Name Role Phone Va Glez MD Primary Care Provider Va Glez MD Unavailable Kerry Bernal RN Unavailable [phone] Ravi Barillas DPM Unavailable [phone] Christy Campuzano PA-C Unavailable [phone] Hans Cannon MD Unavailable Mitra Kendall CLERK TELEVISION PRODUCTION Unavailable Burt Jovel MD Unavailable [phone] [facility] Unavailable Reji Chavez MD Unavailable Josh Cordero MD, Madhuri Unavailable [phone] Josh Cordero MD, Madhuri Unavailable [phone] Kelsi Hassan MD Unavailable [phone] John Webb MD Unavailable [phone] John Webb MD Unavailable [phone] [facility] Unavailable Nav Hughes MD Unavailable [phone] Cassandra Mendoza MD Unavailable Estella Hassan H Unavailable Mitra Kendall CLERK TELEVISION PRODUCTION Unavailable Aurelio Lindsay Kenzie OD Unavailable Ravi Brownlee MD Unavailable Arabella Fishman MA Unavailable [phone] Richard Kam MD Unavailable Marisol Patel [facility] Unavailable Gaby Vila DO Unavailable Rosemarie Mcdowell RN Unavailable Ravi Brownlee MD Unavailable Mitra Kendall CLERK TELEVISION PRODUCTION Unavailable Lizet Mann PA-C Unavailable Ravi Brownlee MD Unavailable Nav Hughes MD Unavailable [phone] Manuel Ahn OD Unavailable [phone] Arabella Fishman MA Unavailable [phone] [facility] Unavailable Unavailable Encounter Details Date Type Department Care Team (Late st Contact Info) Description 07/31/2020 [facility] [address] [place] [phone] Elaina Moreno MD [address] [place] [address] Social History Tobacco Use Types Packs/Day [...] and Family Not on file 05/31/2019 Attends Druze Services Not on file 05/30 Active Member [...] Answer Date Recorded PHQ-2 Score 2 07/28/2020 [facility] of Occupat ional Health - Occupational Stress [...] file Legal 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 TANK BUILDER HELPER Gender Identity Not on file Sexual Orientation Not on file Occupation Industry Job Start Date Job End Date Not on file Not on file Not on file Not on file COVID-19 Exposure Response Date Recorded In the last month, have you been in contact with someone who was confirmed or suspected to have Coronavirus / COVID-19? No / Unsure 08/01/2020 2:26 PM CDT documented as of this encounter Plan of Treatment Upcoming Encounters Date Type Department Care Team (Late st Contact Info) Description 02/01/2024 3:00 PM TANK BUILDER HELPER Office Visit [facility] [address] [place] [phone] Manuel Ahn, [address] [place] [address] 02/02/2024 1:30 PM TANK BUILDER HELPER Therapy Visit [facility] [address] [facility] [address] [place] [phone] Alicja Roldan OT 909 [place] [address] 02/05/2024 8:00 PM TANK BUILDER HELPER Therapy Visit [facility] [address] [place] [phone] 02/13/2024 4:30 PM TANK BUILDER HELPER Oncology Visit [facility] 9[address] [place] [phone] Marian Agustin, NESSA ECHO VASC TECH [address] [facility] [address] [place], [place] [address] 03/01/2024 7:00 AM TANK BUILDER HELPER Office Visit [facility] [address] [place] [phone] Estella Hassan, [facility] 3033 [place] [address] 03/23/2024 2:00 PM TANK BUILDER HELPER Office Visit [facility] [address] [place] [address] Lizet Mann PA-C 717 [place] [address] 03/29/2024 3:30 PM TANK BUILDER HELPER Office Visit [facility] 2945 [facility] 200 [place] [phone] Hakeem Chacko MBBS 2945 [place] [address] 05/03/2024 3:00 PM TANK BUILDER HELPER Office Visit [facility] [address] [place] [phone] Gaurav Valenzuela, CORPORATE LIBRARIAN [facility] [address] [place] [address] 456984 05/22/2024 10:30 AM CDT Office Visit [address] [phone] Estella Hassan, [facility] 30[address] [place] [address] 05/22/2024 11:30 AM CDT Office Visit [address] [address] Va Glez MD [address] [place] [address] [phone] documented as of this encounter Visit Diagnoses Not on filedocumented in this encounter Additional Health Concerns Infection Onset Date Last Indicated Resolved Time Rule Out COVID-19 06/22/2021 06/22/2021 06/23/2021 8:58 PM CDT Rule Out COVID-19 01/22/2022 01/22/2022 01/24/2022 1:05 PM TANK BUILDER HELPER Rule Out COVID-19 01/25/2022 01/25/2022 01/25/2022 5:21 AM TANK BUILDER HELPER Influenza 01/25/2022 01/25/2022 02/01/2022 11:4 1 PM TANK BUILDER HELPER Rule Out COVID-19 07/29/2022 07/29/2022 07/31/2022 11:17 AM CDT Rule Out COVID-19 03/23/2023 03/23/2023 03/23/2023 6:30 PM TANK BUILDER HELPER COVID-19 03/23/2023 03/23/2023 04/13/2023 11:4 0 PM TANK BUILDER HELPER Rule Out COVID-19 06/05/2023 06/05/2023 06/05/2023 5:53 PM CDT Rule Out COVID-19 11/06/2023 11/06/2023 11/06/2023 11:05 PM CDT Rule Out COVID-19 11/20/2023 11/20/2023 11/20/2023 6:43 PM CDT Rule Out COVID-19 12/27/2023 12/27/2023 12/29/2023 1:37 PM CDT Assessment Noted Time PHQ-9 Depression Total Score: 7 07/29/19 21 7:03 AM CDT documented as of this encounter Care Teams Financial Services Manager Relationship Specialty [place] [address] [place] [address] PCP - General Family Practice 07/11/14 [place] [address] [place] [address] Assigned PCP 12/16/11 Kerry Bernal RN Personal Advocate & Liaison (PAL) 01/08/19 07/10/23 Ravi Barillas DPM [address] [facility] [address] [place] [address] Assigned Musculoskeletal Provider 03/23/20 10/30/21 Christy Campuzano PA-C [address] [place] [address] [id number] Referring Physician Family Medicine 04/22/20 Hans Cannon MD [address] [place] [address] [id number] Resident Pulmonary Disease 04/22/20 Mitra Kendall, [facility] Lead Effervescent Salts Compounder Primary Care - CC 01/08/1901/12 Burt Jovel MD Internal Medicine 05/08/20 12/13/23 Estella Hassan, [facility] [address] [place], [place] 530786 Pharmacist Pharmacist 05/26/20 Reji Chavez MD [address] [place] [phone] Assigned Heart and Vascular Provider 05/18/20 10/30/21 Elaina Moreno MD [address] [place] [address] Assigned Surgical Provider 05/18/20 11/19/22 Elaina Moreno MD 909 [place] [address] Cardiovascular & Thoracic Surgery 08/06/20 Kelsi Hassan MD [address] [place] [address] 284 [place] [address] Assigned Pulmonology Provider 06/28/21 02/05/22 John Webb MD [address] [place] [address] Cardiovascular Disease 08/25/21 John Webb MD [address] [place] [address] Cardiovascular Disease 08/25/21 Estella Hassan, [facility] 30[address] [place] [address] Assigned MTM Pharmacist 09/05/21 Nav Hughes MD [address] [place] [address] Assigned Heart and Vascular Provider 10/31/21 09/03/23 Cassandra Mendoza MD ORTHOPAEDIC SURGERY [address] [address] Assigned Musculoskeletal Provider 10/31/21 08/13/22 Estella Hassan, [facility] [address] [place] [address] Assigned MTM Pharmacist 12/09/21 Mitra Kendall, [facility] Lead Effervescent Salts Compounder Primary Care - CC 01/26/2210/28 Lindsay Carey OD [address] [facility] [place] [address] Ophthalmology 01/29/22 Ravi Brownlee MD [address] [place] [address] 276 [place], [place] 804795 Assigned Pulmonology Provider 02/06/22 09/03/23 Arabella Fishman MA Financial Resource Worker 02/22/22 02/23/22 Richard Kam MD [address] [place] [address] [id number] Assigned Musculoskeletal Provider 08/14/22 [facility] [address] [facility] [address] [place] [id number] Pharmacist Pharmacist 11/22/22 01/09/23 [place] [address] [address] Assigned Neuroscience Provider 01/01/23 Rosemarie Mcdowell, RN Cellophane Press Operator Diabetes Education 03/17/23 Ravi Brownlee MD [address] [place] [address] 276 [place], [place] 151885 Assigned Heart and Vascular Provider 09/04/23 01/03/24 Mitra Kendall, [facility] Lead Effervescent Salts Compounder Primary Care - CC 12/12/23 Lizet Mann PA-C 717 [place] [address] Assigned Cancer Care Provider 01/04/24 Ravi Brownlee MD [address] [facility] [address] [place], [place] 6712[address] Assigned Pulmonology Provider 01/04/24 Nav Hughes MD 6[address] [facility] [place] 778825 Assigned Heart and Vascular Provider 01/04/24 Manuel Ahn OD 6341 [facility] [place] [id number] Millwright Supervisor 01/05/24 Arabella Fishman MA Financial Resource Worker 01/06/[address] [facility] Pharmacist Pharmacy 01/26/24 documented as of this encounter
--- OUTSIDE RECORDS SUMMARY | 2024-01-31 20:10 | XMS_ITS | Encounter Summary ---
Author Organization [place] Address [address] [place] [address] Care Team Providers Care Software Business Analyst Name Role Phone Va Glez MD Primary Care Provider Va Glez MD Unavailable Kerry Bernal RN Unavailable [phone] Ravi Barillas DPM Unavailable [phone] Christy Campuzano PA-C Unavailable Hans Cannon MD Unavailable Mitra Kendall CHIEF INVESTMENT OFFICER Unavailable Burt Jovel MD Unavailable Estella Hassan [facility] Unavailable [phone] Reji Chavez MD Unavailable Josh Cordero MD, Madhuri Unavailable [phone] Josh Cordero MD, Madhuri Unavailable [phone] Kelsi Hassan MD Unavailable [phone] John Webb MD Unavailable [phone] John Webb MD Unavailable Estella Hassan [facility] Unavailable Nav Hughes MD Unavailable [phone] Cassandra Mendoza MD Unavailable [phone] Estella Hassan H Unavailable Mitra Kendall CHIEF INVESTMENT OFFICER Unavailable Aurelio Lindsay Kenzie OD Unavailable Ravi Brownlee MD Unavailable Arabella Fishman MA Unavailable Rcihard Kam MD Unavailable Marisol Patel [facility] Unavailable Gaby Vila DO Unavailable [phone] Rosemarie Mcdowell RN Unavailable [phone] Ravi Brownlee MD Unavailable Mitra Kendall CHIEF INVESTMENT OFFICER Unavailable Lizet Mann PA-C Unavailable [phone] Ravi Brownlee MD Unavailable [phone] Nav Hughes MD Unavailable [phone] Manuel Ahn OD Unavailable [phone] Arabella Fishman MA Unavailable [phone] [facility] Unavailable Unavailable Encounter Details Date Type Department Care Team (Late st Contact Info) Description 07/29/2020 [facility] [address] [place] [phone] Elaina Moreno MD [address] [place] [address] Social History Tobacco Use Types Packs/Day [...] and Family Not on file 05/31/2019 Attends Alevism Services Not on file 05/30 Active Member [...] Answer Date Recorded PHQ-2 Score 2 07/28/2020 [facility] [place] of Occupat ional Health - Occupational Stress [...] on file Legal 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 ROULETTE DEALER Gender Identity Not on file Sexual Orientation [...] st Contact Info) Description 02/01/2024 3:00 PM ROULETTE DEALER Office Visit [facility] 6[address] [place] [phone] Manuel Ahn, [address] [place] [address] 02/02/2024 1:30 PM ROULETTE DEALER Therapy Visit [facility] [address] [facility] [address] [place] [phone] Alicja Roldan OT 909 [place] [address] 02/05/2024 8:00 PM ROULETTE DEALER Therapy Visit [facility] [address] [place] [phone] 02/13/2024 4:30 PM ROULETTE DEALER Oncology Visit [facility] 909 [place] [phone] Marian Agustin, NESSA HOT DIE PRESS OPERATOR [address] [facility] 207 [place], [place] 12[address] 03/01/2024 7:00 AM ROULETTE DEALER Office Visit [facility] [address] [place] [phone] Estella Hassan, [facility] 3033 [place] [address] 03/23/2024 2:00 PM ROULETTE DEALER Office Visit [facility] [address] [place] [address] Lizet Mann PA-C 717 [place] [address] 03/29/2024 3:30 PM ROULETTE DEALER Office Visit [facility] 2945 [facility] 200 [place] [phone] Hakeem Chacko MBBS 2945 [place] [address] 05/03/2024 3:00 PM ROULETTE DEALER Office Visit [facility] [address] [place] [phone] Gaurav Valenzuela, LOADER HELPER [facility] [address] [place] [address] 674694 05/22/2024 10:30 AM CDT Office Visit [address] [phone] Estella Hassan, [facility] 30[address] [place] [address] 05/22/2024 11:30 AM CDT Office Visit [address] [address] Va Glez MD [address] [place] [address] [phone] documented as of this encounter Visit Diagnoses Not on filedocumented in this encounter Additional Health Concerns Infection Onset Date Last Indicated Resolved Time Rule Out COVID-19 06/22/2021 06/22/2021 06/23/2021 8:58 PM CDT Rule Out COVID-19 01/22/2022 01/22/2022 01/24/2022 1:05 PM ROULETTE DEALER Rule Out COVID-19 01/25/2022 01/25/2022 01/25/2022 5:21 AM ROULETTE DEALER Influenza 01/25/2022 01/25/2022 02/01/2022 11:4 1 PM ROULETTE DEALER Rule Out COVID-19 07/29/2022 07/29/2022 07/31/2022 11:17 AM CDT Rule Out COVID-19 03/23/2023 03/23/2023 03/23/2023 6:30 PM ROULETTE DEALER COVID-19 03/23/2023 03/23/2023 04/13/2023 11:4 0 PM ROULETTE DEALER Rule Out COVID-19 06/05/2023 06/05/2023 06/05/2023 5:53 PM CDT Rule Out COVID-19 11/06/2023 11/06/2023 11/06/2023 11:05 PM CDT Rule Out COVID-19 11/20/2023 11/20/2023 11/20/2023 6:43 PM CDT Rule Out COVID-19 12/27/2023 12/27/2023 12/29/2023 1:37 PM CDT Assessment Noted Time PHQ-9 Depression Total Score: 7 07/29/19 21 7:03 AM CDT documented as of this encounter Care Teams Software Business Analyst Relationship Specialty [place] [address] [place] [address] PCP - General Family Practice 07/11/14 [place] [address] [place] [address] Assigned PCP 12/16/11 Kerry Bernal RN Personal Advocate & Liaison (PAL) 01/08/19 07/10/23 Ravi Barillas DPM [address] [facility] [address] [place] [address] Assigned Musculoskeletal Provider 03/23/20 10/30/21 Christy Campuzano PA-C [address] [place] [address] [id number] Referring Physician Family Medicine 04/22/20 Hans Cannon MD [address] [place] [address] 047652 Resident Pulmonary Disease 04/22/20 Mitra Kendall, [facility] Lead As400 Operator Primary Care - CC 01/08/1901/12 Burt Jovel MD Internal Medicine 05/08/20 12/13/23 Estella Hassan, [facility] 30[address] [place], [place] [address] Pharmacist Pharmacist 05/26/20 Reji Chavez MD [address] [place] [phone] Assigned Heart and Vascular Provider 05/18/20 10/30/21 Elaina Moreno MD [address] [place] [address] Assigned Surgical Provider 05/18/20 11/19/22 Elaina Moreno MD 909 [place] [address] Cardiovascular & Thoracic Surgery 08/06/20 Kelsi Hassan MD [address] [place] [address] 284 [place] [address] Assigned Pulmonology Provider 06/28/21 02/05/22 John Webb MD [address] [place] [address] Cardiovascular Disease 08/25/21 John Webb MD [address] [place] [address] Cardiovascular Disease 08/25/21 Estella Hassan, [facility] [address] [place] [address] Assigned MTM Pharmacist 09/05/21 Nav Hughes MD [address] [place] [address] Assigned Heart and Vascular Provider 10/31/21 09/03/23 Cassandra Mendoza MD ORTHOPAEDIC SURGERY [address] [address] Assigned Musculoskeletal Provider 10/31/21 08/13/22 Estella Hassan, [facility] [address] [place] [address] Assigned MTM Pharmacist 12/09/21 Mitra Kendall, [facility] Lead As400 Operator Primary Care - CC 01/26/2210/28 Lindsay Carey OD [address] [facility] [place] [address] Ophthalmology 01/29/22 Ravi Brownlee MD [address] [place] [address] 276 [place], [place] [address] Assigned Pulmonology Provider 02/06/22 09/03/23 Arabella Fishman MA Financial Resource Worker 02/22/22 02/23/22 Richard Kam MD [address] [place] [address] 365425 Assigned Musculoskeletal Provider 08/14/22 [facility] [address] [facility] [address] [place] [phone] Pharmacist Pharmacist 11/22/22 01/09/23 [place] [address] [address] Assigned Neuroscience Provider 01/01/23 Rosemarie Mcdowell, RN Media Planner Diabetes Education 03/17/23 Ravi Brownlee MD [address] [place] [address] 276 [place], [place] 369965 Assigned Heart and Vascular Provider 09/04/23 01/03/24 Mitra Kendall, [facility] Lead As400 Operator Primary Care - CC 12/12/23 Lizet Mann PA-C 717 [place] [address] Assigned Cancer Care Provider 01/04/24 Ravi Brownlee MD [address] [facility] [address] [place], [place] 254015 Assigned Pulmonology Provider 01/04/24 Nav Hughes MD 6405 [facility] [place] 811395 Assigned Heart and Vascular Provider 01/04/24 Manuel Ahn OD 6341 [facility] SHAKNAR RICH[place]DS [id number] Filter Washer And Presser 01/05/24 Arabella Fishman MA Financial Resource Worker 01/06/[address] [facility] Pharmacist Pharmacy 01/26/24 documented as of this encounter
--- OUTSIDE RECORDS SUMMARY | 2024-01-31 20:10 | XMS_ITS | Encounter Summary ---
Author Organization [place] Address [address] [place] [address] Care Team Providers Care Picker Packer Name Role Phone Va Glez MD Primary Care Provider [phone] Va Glez MD Unavailable Kerry Bernal RN Unavailable [phone] Ravi Barillas DPM Unavailable [phone] Christy Campuzano PA-C Unavailable Hans Cannon MD Unavailable Mitra Kendall AXLE POLISHER Unavailable [phone] Burt Jovel MD Unavailable [phone] Estella Hassan [facility] Unavailable Reji Chavez MD Unavailable [phone] Josh Cordero MD, Madhuri Unavailable [phone] Josh Cordero MD, Madhuri Unavailable [phone] Kelsi Hassan MD Unavailable [phone] John Webb MD Unavailable [phone] John Webb MD Unavailable [phone] Estella Hassan [facility] Unavailable [phone] Nav Hughes MD Unavailable [phone] Cassandra Mendoza MD Unavailable Estella Hassan H Unavailable [phone] Mitra Kendall AXLE POLISHER Unavailable [phone] Aurelio Lindsay Kenzie OD Unavailable Ravi Brownlee MD Unavailable Arabella Fishman MA Unavailable [phone] Richard Kam MD Unavailable Marisol Patel [facility] Unavailable [phone] Gaby Vila DO Unavailable [phone] Rosemarie Mcdowell RN Unavailable Ravi Brownlee MD Unavailable Mitra Kendall AXLE POLISHER Unavailable Lizet Mann PA-C Unavailable Ravi Brownlee MD Unavailable Nav Hughes MD Unavailable [phone] Manuel Ahn OD Unavailable [phone] Arabella Fishman MA Unavailable [phone] Thalia Charles [facility] Unavailable Unavailable Encounter Details Date Type Department Care Team (Late st Contact Info) Description 08/07/2020 [facility] [address] [place] [phone] Elaina Moreno MD [address] [place] [address] Social History Tobacco Use Types Packs/Day [...] and Family Not on file 05/31/2019 Attends Hindu Services Not on file 05/30 Active Member [...] on file Legal 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 SYRUP MAKER COOK Gender Identity Not on file Sexual Orientation [...] st Contact Info) Description 02/01/2024 3:00 PM SYRUP MAKER COOK Office Visit [facility] 6[address] [place] [phone] [facility] 6341 [place] [address] 02/02/2024 1:30 PM SYRUP MAKER COOK Therapy Visit [facility] [address] [facility] 300 [place] [phone] Alicja Roldan OT 909 [place] [address] 02/05/2024 8:00 PM SYRUP MAKER COOK Therapy Visit [facility] [place] [address] [place] [address] 103 [place] [phone] 02/13/2024 4:30 PM SYRUP MAKER COOK Oncology Visit [facility] 909 [place] [phone] Marian Agustin APRN [facility] [address] [facility] 207 [place] [address] 03/01/2024 7:00 AM SYRUP MAKER COOK Office Visit [address] [phone] Estella Hassan, [facility] [address] [place] [address] 03/23/2024 2:00 PM SYRUP MAKER COOK Office Visit [facility] [address] [place] [address] [place] [address] Lizet Mann PA-C [address] [place] [address] 03/29/2024 3:30 PM SYRUP MAKER COOK Office Visit [facility] 2945 [facility] 200 [place] [phone] Hakeem Chacko MBBS 2945 [place] [address] 05/03/2024 3:00 PM SYRUP MAKER COOK Office Visit [facility] [address] [place] [phone] Gaurav Valenzuela, POST CLOSER [address] 162904 05/22/2024 10:30 AM CDT Office Visit [address] [phone] Estella Hassan, [place] [address] [place] [address] 05/22/2024 11:30 AM CDT Office Visit [address] [phone] Va Glez MD [address] [place] [address] [phone] documented as of this encounter Visit Diagnoses Not on filedocumented in this encounter Additional Health Concerns Infection Onset Date Last Indicated Resolved Time Rule Out COVID-19 06/22/2021 06/22/2021 06/23/2021 8:58 PM CDT Rule Out COVID-19 01/22/2022 01/22/2022 01/24/2022 1:05 PM SYRUP MAKER COOK Rule Out COVID-19 01/25/2022 01/25/2022 01/25/2022 5:21 AM SYRUP MAKER COOK Influenza 01/25/2022 01/25/2022 02/01/2022 11:4 1 PM SYRUP MAKER COOK Rule Out COVID-19 07/29/2022 07/29/2022 07/31/2022 11:17 AM CDT Rule Out COVID-19 03/23/2023 03/23/2023 03/23/2023 6:30 PM SYRUP MAKER COOK COVID-19 03/23/2023 03/23/2023 04/13/2023 11:4 0 PM SYRUP MAKER COOK Rule Out COVID-19 06/05/2023 06/05/2023 06/05/2023 5:53 PM CDT Rule Out COVID-19 11/06/2023 11/06/2023 11/06/2023 11:05 PM CDT Rule Out COVID-19 11/20/2023 11/20/2023 11/20/2023 6:43 PM CDT Rule Out COVID-19 12/27/2023 12/27/2023 12/29/2023 1:37 PM CDT Assessment Noted Time PHQ-9 Depression Total Score: 7 08/08/19 21 7:03 AM CDT documented as of this encounter Care Teams Picker Packer Relationship Specialty [place] [address] [place] [address] PCP - General Family Practice 07/11/14 [place] [address] [place] [address] Assigned PCP 12/16/11 Kerry Bernal RN Personal Advocate & Liaison (PAL) 01/08/19 07/10/23 Ravi Barillas DPM [address] [facility] [address] [place] [address] Assigned Musculoskeletal Provider 03/23/20 10/30/21 Christy Campuzano PA-C [address] [place] [address] [phone] Referring Physician Family Medicine 04/22/20 Hans Cannon MD [address] [place] [address] [phone] Resident Pulmonary Disease 04/22/20 Mitra Kendall, [facility] Lead Architect In Training Primary Care - CC 01/08/1901/12 Burt Jovel MD Internal Medicine 05/08/20 12/13/23 Estella Hsasan, [facility] [address] [place], [place] 632476 Pharmacist Pharmacist 05/26/20 Reji Chavez MD [address] [place] [phone] Assigned Heart and Vascular Provider 05/18/20 10/30/21 Elaina Moreno MD [address] [place] [address] [phone] Assigned Surgical Provider 05/18/20 11/19/22 Elaina Moreno MD 909 [place] [address] Cardiovascular & Thoracic Surgery 08/06/20 Kelsi Hassan MD 420 [facility] 284 [place] [address] Assigned Pulmonology Provider 06/28/21 02/05/22 John Webb MD [address] 218725 Cardiovascular Disease 08/25/21 John Webb MD [address] 056025 Cardiovascular Disease 08/25/21 Estella Hassan, [facility] [address] [place] [address] Assigned MTM Pharmacist 09/05/21 Nav Hughes MD [address] [place] 813485 Assigned Heart and Vascular Provider 10/31/21 09/03/23 Cassandra Mendoza MD ORTHOPAEDIC SURGERY [address] [address] Assigned Musculoskeletal Provider 10/31/21 08/13/22 Estella Hassan, [facility] [address] [place] [address] Assigned MTM Pharmacist 12/09/21 Mitra Kendall, AXLE POLISHER Lead Architect In Training Primary Care - CC 01/26/2210/28 Lindsay Carey OD 3305 [facility] [place] [address] Ophthalmology 01/29/22 Ravi Brownlee MD [address] [place] [address] 106225 Assigned Pulmonology Provider 02/06/22 09/03/23 Arabella Fishman MA Financial Resource Worker 02/22/22 02/23/22 Richard Kam MD [address] [place] [address] 122415 Assigned Musculoskeletal Provider 08/14/22 [facility] [address] [facility] [address] [place] [phone] Pharmacist Pharmacist 11/22/22 01/09/23 [place] [address] 032657 Assigned Neuroscience Provider 01/01/23 Rosemarie Mcdowell, RN Betting Clerks Diabetes Education 03/17/23 Ravi Brownlee MD [address] [place] [address] 112925 Assigned Heart and Vascular Provider 09/04/23 01/03/24 Mitra Kendall LSW Lead Architect In Training Primary Care - CC 12/12/23 Lizet Mann PA-C 717 [place], [place] 959405 Assigned Cancer Care Provider 01/04/24 Ravi Brownlee MD 420 [facility] 276 [place], [place] [phone] Assigned Pulmonology Provider 01/04/24 Nav Hughes MD [address] [place] 045375 Assigned Heart and Vascular Provider 01/04/24 Manuel Ahn OD 6341 [facility] [place] 222312 Interlocking Installer 01/05/24 Arabella Fishman MA Financial Resource Worker 01/06/24 Thalia Charles [facility] Pharmacist Pharmacy 01/26/24 documented as of this encounter
--- OUTSIDE RECORDS SUMMARY | 2024-01-31 20:10 | XMS_ITS | Encounter Summary ---
Author Organization [place] Address [address] [place] [address] Care Team Providers Care Vice President Sales Name Role Phone Va Glez MD Primary Care Provider Va Glez MD Unavailable Kerry Bernal RN Unavailable [phone] Ravi Barillas DPM Unavailable [phone] Christy Campuzano PA-C Unavailable Hans Cannon MD Unavailable Mitra Kendall PHARMACY TECHNOLOGY INSTRUCTOR Unavailable Burt Jovel MD Unavailable [phone] Estella Hassan [facility] Unavailable Reji Chavez MD Unavailable Josh Cordero MD, Madhuri Unavailable [phone] Josh Cordero MD, Madhuri Unavailable [phone] Kelsi Hassan MD Unavailable [phone] John Webb MD Unavailable John Webb MD Unavailable Estella Hassan [facility] Unavailable Nav Hughes MD Unavailable [phone] Cassandra Mendoza MD Unavailable Estella Hassan [facility] Unavailable [phone] Mitra Kendall PHARMACY TECHNOLOGY INSTRUCTOR Unavailable Lindsay Carey OD Unavailable [place]villeRavi bajwa MD Unavailable Arabella Fishman MA Unavailable [phone] Richard Kam MD Unavailable Marisol Patel [facility] Unavailable [phone] Gaby Vila DO Unavailable Rosemarie Mcdowell RN Unavailable [phone] Ravi Brownlee MD Unavailable Mitra Kendall PHARMACY TECHNOLOGY INSTRUCTOR Unavailable Lizet Mann PA-C Unavailable [phone] Ravi Brownlee MD Unavailable Nav Hughes MD Unavailable [phone] Manuel Ahn OD Unavailable Arabella Fishman MA Unavailable [phone] Thalia Charles [facility] Unavailable Unavailable Encounter Details Date Type Department Care Team (Late st Contact Info) Description 08/16/2020 [facility] [address] [address] Estella Hassan, [facility] [address] [place] [address] Social History Tobacco Use Types Packs/Day Years [...] and Family Not on file 05/31/2019 Attends Judaism Services Not on file 05/30 Active Member [...] points; Administer PHQ-9 if positive 1 08/06/2020 [facility] of Occupat ional Health - Occupational Stress [...] on file Legal 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 ART CRITIC Gender Identity Not on file Sexual Orientation [...] st Contact Info) Description 02/01/2024 3:00 PM ART CRITIC Office Visit [facility] 6341 [place] [phone] [facility] [address] [place] [address] 02/02/2024 1:30 PM ART CRITIC Therapy Visit [facility] [place] [facility] [place] [address] [facility] 300 [place] [phone] Alicja Roldan OT 909 [place] [address] 02/05/2024 8:00 PM ART CRITIC Therapy Visit [facility] [place] [address] [place] [address] 103 [place] [phone] 02/13/2024 4:30 PM ART CRITIC Oncology Visit [facility] 909 [place] [phone] Marian Agustin APRN [facility] [address] [facility] 207 [place] [address] 03/01/2024 7:00 AM ART CRITIC Office Visit [address] [phone] Estella Hassan, [facility] [address] [place] [address] 03/23/2024 2:00 PM ART CRITIC Office Visit [facility] [address] [place] [address] [place] [address] Lizet Mann PA-C [address] [place] [address] 03/29/2024 3:30 PM ART CRITIC Office Visit [facility] 2945 [facility] 200 [place] [phone] Hakeem Chacko MBBS 2945 [place] [address] 05/03/2024 3:00 PM ART CRITIC Office Visit [facility] [address] [place] [phone] Gaurav Valenzuela, DISTRIBUTION CENTER SUPERVISOR [address] 222044 05/22/2024 10:30 AM CDT Office Visit [address] [phone] Estella Hassan, [place] [address] [place] [address] 05/22/2024 11:30 AM CDT Office Visit [address] [phone] Va Glez MD [address] [place] [address] [phone] documented as of this encounter Visit Diagnoses Not on filedocumented in this encounter Additional Health Concerns Infection Onset Date Last Indicated Resolved Time Rule Out COVID-19 06/22/2021 06/22/2021 06/23/2021 8:58 PM CDT Rule Out COVID-19 01/22/2022 01/22/2022 01/24/2022 1:05 PM ART CRITIC Rule Out COVID-19 01/25/2022 01/25/2022 01/25/2022 5:21 AM ART CRITIC Influenza 01/25/2022 01/25/2022 02/01/2022 11:4 1 PM ART CRITIC Rule Out COVID-19 07/29/2022 07/29/2022 07/31/2022 11:17 AM CDT Rule Out COVID-19 03/23/2023 03/23/2023 03/23/2023 6:30 PM ART CRITIC COVID-19 03/23/2023 03/23/2023 04/13/2023 11:4 0 PM ART CRITIC Rule Out COVID-19 06/05/2023 06/05/2023 06/05/2023 5:53 PM CDT Rule Out COVID-19 11/06/2023 11/06/2023 11/06/2023 11:05 PM CDT Rule Out COVID-19 11/20/2023 11/20/2023 11/20/2023 6:43 PM CDT Rule Out COVID-19 12/27/2023 12/27/2023 12/29/2023 1:37 PM CDT Assessment Noted Time PHQ-9 Depression Total Score: 7 08/08/19 21 7:03 AM CDT documented as of this encounter Care Teams Vice President Sales Relationship Specialty [place] [address] [place] [address] PCP - General Family Practice 07/11/14 [place] [address] [place] [address] Assigned PCP 12/16/11 Kerry Bernal RN Personal Advocate & Liaison (PAL) 01/08/19 07/10/23 Ravi Barillas DPM [address] [facility] [address] [place] [address] Assigned Musculoskeletal Provider 03/23/20 10/30/21 Christy Campuzano PA-C [address] [place] [address] 619352 Referring Physician Family Medicine 04/22/20 Hans Cannon MD [address] [place] [address] 102832 Resident Pulmonary Disease 04/22/20 Mitra Kendall, [facility] Lead Labor Commissioner Primary Care - CC 01/08/1901/12 Burt Jovel MD Internal Medicine 05/08/20 12/13/23 Estella Hassan, [facility] [address] [facility] [place], [place] 738[address] Pharmacist Pharmacist 05/26/20 Reji Chavez MD [address] [place] [phone] Assigned Heart and Vascular Provider 05/18/20 10/30/21 Elaina Moreno MD [address] [place] [address] [phone] Assigned Surgical Provider 05/18/20 11/19/22 Elaina Moreno MD 909 [place] [address] Cardiovascular & Thoracic Surgery 08/06/20 Kelsi Hassan MD 420 [facility] 284 [place] [address] Assigned Pulmonology Provider 06/28/21 02/05/22 John Webb MD [address] 367085 Cardiovascular Disease 08/25/21 John Webb MD [address] 254545 Cardiovascular Disease 08/25/21 Estella Hassan, [facility] [address] [place] [address] Assigned MTM Pharmacist 09/05/21 Nav Hughes MD [address] [place] [address] Assigned Heart and Vascular Provider 10/31/21 09/03/23 Cassandra Mendoza MD ORTHOPAEDIC SURGERY [address] [address] Assigned Musculoskeletal Provider 10/31/21 08/13/22 Estella Hassan, [facility] [address] [place] [address] Assigned MTM Pharmacist 12/09/21 Mitra Kendall, PHARMACY TECHNOLOGY INSTRUCTOR Lead Labor Commissioner Primary Care - CC 01/26/2210/28 Lindsay Carey OD 3305 [facility] [address] [place] [address] Ophthalmology 01/29/22 Ravi Brownlee MD [address] [place] [address] 698875 Assigned Pulmonology Provider 02/06/22 09/03/23 Arabella Fishman MA Financial Resource Worker 02/22/22 02/23/22 Richard Kam MD [address] [place] [address] 042695 Assigned Musculoskeletal Provider 08/14/22 [facility] 1440 [facility] [address] [phone] Pharmacist Pharmacist 11/22/22 01/09/23 [place] [address] 253857 Assigned Neuroscience Provider 01/01/23 Rosemarie Mcdowell, RN Cider Press Operator Diabetes Education 03/17/23 Ravi Brownlee MD [address] [place] [address] 915605 Assigned Heart and Vascular Provider 09/04/23 01/03/24 Mitra Kendall LSW Lead Labor Commissioner Primary Care - CC 12/12/23 Lizet Mann PA-C 717 [place], [place] 512405 Assigned Cancer Care Provider 01/04/24 Ravi Brownlee MD 420 [facility] 276 [place], [place] 180725 Assigned Pulmonology Provider 01/04/24 Nav Hughes MD [address] [place] [address] [place] 554895 Assigned Heart and Vascular Provider 01/04/24 Manuel Ahn OD 6341 [facility] 108432 Setter Out 01/05/24 Arabella Fishman MA Financial Resource Worker 01/06/24 Thalia Charles [facility] Pharmacist Pharmacy 01/26/24 documented as of this encounter
--- OUTSIDE RECORDS SUMMARY | 2024-01-31 20:10 | XMS_ITS | Encounter Summary ---
Author Organization [facility] Address [address] [place] [address] Care Team Providers Care Parts Driver Name Role Phone Va Glez MD Primary Care Provider Va Glez MD Unavailable Kerry Bernal RN Unavailable [phone] Ravi Barillas DPM Unavailable [phone] Christy Campuzano PA-C Unavailable [phone] Hans Cannon MD Unavailable [phone] Mitra Kendall SUPERVISOR COOK HOUSE Unavailable [phone] Burt Jovel MD Unavailable Estella Hassan [facility] Unavailable Reji Chavez MD Unavailable [phone] Josh Cordero MD, Madhuri Unavailable [phone] Josh Cordero MD, Madhuri Unavailable [phone] Kelsi Hassan MD Unavailable [phone] John Webb MD Unavailable John Webb MD Unavailable Estella Hassan [facility] Unavailable Nav Hughes MD Unavailable [phone] Cassandra Mendoza MD Unavailable Estella Hassan [facility] Unavailable Mitra Kendall SUPERVISOR COOK HOUSE Unavailable Lindsay Carey OD Unavailable [place]avi bajwa MD Unavailable [phone] Arabella Fishman MA Unavailable [phone] Richard Kam MD Unavailable Marisol Patel [facility] Unavailable Gaby Vila DO Unavailable Rosemarie Mcdowell RN Unavailable Ravi Brownlee MD Unavailable [phone] Mitra Kendall SUPERVISOR COOK HOUSE Unavailable Lizet Mann PA-C Unavailable [phone] Ravi Brownlee MD Unavailable Nav Hughes MD Unavailable [phone] Manuel Ahn OD Unavailable [phone] Arabella Fishman MA Unavailable [phone] Thalia Charles [facility] Unavailable Unavailable Encounter Details Date Type Department Care Team (Late st Contact Info) Description 08/14/2020 [facility] Medical Advice [address] [address] Estella Hassan, [facility] [address] [place] [address] Social History Tobacco Use Types Packs/Day Years [...] and Family Not on file 05/31/2019 Attends Confucianism Services Not on file 05/30 Active Member [...] points; Administer PHQ-9 if positive 1 08/06/2020 [facility] Occupat [facility] - Occupational [...] on file Legal 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 ASPHALT BLENDER Gender Identity Not on file Sexual Orientation Not on file Occupation Industry Job Start Date Job End Date Not on file Not on file Not on file Not on file COVID-19 Exposure Response Date Recorded In the last month, have you been in contact with someone who was confirmed or suspected to have Coronavirus / COVID-19? No / Unsure 08/14/2020 1:37 PM CDT documented as of this encounter Plan of Treatment Upcoming Encounters Date Type Department Care Team (Late st Contact Info) Description 02/01/2024 3:00 PM ASPHALT BLENDER Office Visit [facility] 6341 [place] [phone] [facility] [address] [place] [address] 02/02/2024 1:30 PM ASPHALT BLENDER Therapy Visit [facility] [place] [facility] [place] [address] [facility] 300 [place] [phone] Alicja Roldan OT 909 [place] [address] 02/05/2024 8:00 PM ASPHALT BLENDER Therapy Visit [facility] [address] 103 [place] [phone] 02/13/2024 4:30 PM ASPHALT BLENDER Oncology Visit [facility] 909 [place] [phone] Marian Agustin APRN [facility] [address] [place] [address] [facility] 207 [place] [address] 03/01/2024 7:00 AM ASPHALT BLENDER Office Visit [address] [phone] Estella Hassan, [facility] [address] [place] [address] 03/23/2024 2:00 PM ASPHALT BLENDER Office Visit [facility] [address] [place] [address] [place] [address] Lizet Mann PA-C [address] [place] [address] 03/29/2024 3:30 PM ASPHALT BLENDER Office Visit [facility] 2945 [facility] 200 [place] [phone] Hakeem Chacko MBBS 2945 [place] [address] 05/03/2024 3:00 PM ASPHALT BLENDER Office Visit [facility] [address] [place] [phone] Gaurav Valenzuela, [employer] [place] [address] 332[address] 05/22/2024 10:30 AM CDT Office Visit [address] [phone] Estella Hassan, [place] [address] [place] [address] 05/22/2024 11:30 AM CDT Office Visit [address] [phone] Va Glez MD [address] [place] [address] [phone] documented as of this encounter Visit Diagnoses Not on filedocumented in this encounter Additional Health Concerns Infection Onset Date Last Indicated Resolved Time Rule Out COVID-19 06/22/2021 06/22/2021 06/23/2021 8:58 PM CDT Rule Out COVID-19 01/22/2022 01/22/2022 01/24/2022 1:05 PM ASPHALT BLENDER Rule Out COVID-19 01/25/2022 01/25/2022 01/25/2022 5:21 AM ASPHALT BLENDER Influenza 01/25/2022 01/25/2022 02/01/2022 11:4 1 PM ASPHALT BLENDER Rule Out COVID-19 07/29/2022 07/29/2022 07/31/2022 11:17 AM CDT Rule Out COVID-19 03/23/2023 03/23/2023 03/23/2023 6:30 PM ASPHALT BLENDER COVID-19 03/23/2023 03/23/2023 04/13/2023 11:4 0 PM ASPHALT BLENDER Rule Out COVID-19 06/05/2023 06/05/2023 06/05/2023 5:53 PM CDT Rule Out COVID-19 11/06/2023 11/06/2023 11/06/2023 11:05 PM CDT Rule Out COVID-19 11/20/2023 11/20/2023 11/20/2023 6:43 PM CDT Rule Out COVID-19 12/27/2023 12/27/2023 12/29/2023 1:37 PM CDT Assessment Noted Time PHQ-9 Depression Total Score: 7 08/08/19 21 7:03 AM CDT documented as of this encounter Care Teams Parts Driver Relationship Specialty [place] [address] [place] [address] PCP - General Family Practice 07/11/14 [place] [address] [place] [address] Assigned PCP 12/16/11 Kerry Bernal RN Personal Advocate & Liaison (PAL) 01/08/19 07/10/23 Ravi Barillas DPM [address] [facility] [address] [place] [address] Assigned Musculoskeletal Provider 03/23/20 10/30/21 Christy Campuzano PA-C [address] [place] [address] 497362 Referring Physician Family Medicine 04/22/20 Hans Cannon MD [address] [place] [address] 265272 Resident Pulmonary Disease 04/22/20 Mitra Kendall, [facility] Lead Shirt Hemmer Primary Care - CC 01/08/1901/12 Burt Jovel MD Internal Medicine 05/08/20 12/13/23 Estella Hassan, [facility] [address] [facility] [place] [place] [address] Pharmacist Pharmacist 05/26/20 Reji Chavez MD [address] [place] [phone] Assigned Heart and Vascular Provider 05/18/20 10/30/21 Elaina Moreno MD [address] [place] [address] 036225 Assigned Surgical Provider 05/18/20 11/19/22 Elaina Moreno MD 909 [place] [address] Cardiovascular & Thoracic Surgery 08/06/20 Kelsi Hassan MD 420 [facility] 284 [place] [address] Assigned Pulmonology Provider 06/28/21 02/05/22 John Wbeb MD [address] 160135 Cardiovascular Disease 08/25/21 John Webb MD [address] 286425 Cardiovascular Disease 08/25/21 Estella Hassan, [facility] [address] [place] [address] Assigned MTM Pharmacist 09/05/21 Nav Hughes MD [address] [place] [address] Assigned Heart and Vascular Provider 10/31/21 09/03/23 Cassandra Mendoza MD ORTHOPAEDIC SURGERY [address] [address] Assigned Musculoskeletal Provider 10/31/21 08/13/22 Estella Hassan, [facility] [address] [place] [address] Assigned MTM Pharmacist 12/09/21 Mitra Kendall, [employer] Lead Shirt Hemmer Primary Care - CC 01/26/2210/28 Lindsay Carey OD [address] [facility] [place] [address] Ophthalmology 01/29/22 Ravi Brownlee MD [address] [place] [address] 078965 Assigned Pulmonology Provider 02/06/22 09/03/23 Arabella Fishman MA Financial Resource Worker 02/22/22 02/23/22 Richard Kam MD [address] [place] [address] 910275 Assigned Musculoskeletal Provider 08/14/22 [facility] [address] [facility] [place] [id number] Pharmacist Pharmacist 11/22/22 01/09/23 [place] [address] 597737 Assigned Neuroscience Provider 01/01/23 Rosemarie Mcdowell, RN Logistic Specialist Diabetes Education 03/17/23 Ravi Brownlee MD [address] [place] [address] 496295 Assigned Heart and Vascular Provider 09/04/23 01/03/24 Mitra Kendall LSW Lead Shirt Hemmer Primary Care - CC 12/12/23 Lizet Mann PA-C 717 [place], [place] 688375 Assigned Cancer Care Provider 01/04/24 Ravi Brownlee MD 420 [facility] 276 [place], [place] 488395 Assigned Pulmonology Provider 01/04/24 Nav Hughes MD [address] [place] 781555 Assigned Heart and Vascular Provider 01/04/24 Manuel Ahn OD 6341 [facility] [place] 198452 Business Banking Manager 01/05/24 Arabella Fishman MA Financial Resource Worker 01/06/24 Thalia Charles [facility] Pharmacist Pharmacy 01/26/24 documented as of this encounter
--- OUTSIDE RECORDS SUMMARY | 2024-01-31 20:10 | XMS_ITS | Encounter Summary ---
Author Organization [place] Address [address] [place] [address] Care Team Providers Care Compression Molding Machine Tender Name Role Phone Va Glez MD Primary Care Provider Va Glez MD Unavailable Kerry Bernal RN Unavailable [phone] Ravi Barillas DPM Unavailable [phone] Christy Campuzano PA-C Unavailable [phone] Hans Cannon MD Unavailable Mitra Kendall ASSEMBLER FINGER BUFFS Unavailable Burt Jovel MD Unavailable Estella Hassan [facility] Unavailable [phone] Reji Chavez MD Unavailable Josh Cordero MD, Madhuri Unavailable [phone] Josh Cordero MD, Madhuri Unavailable [phone] Kelsi Hassan MD Unavailable [phone] John Webb MD Unavailable John Webb MD Unavailable Estella Hassan [facility] Unavailable [phone] Nav Hughes MD Unavailable [phone] Cassandra Mendoza MD Unavailable Estella Hassan [facility] Unavailable [phone] Mitra Kendall ASSEMBLER FINGER BUFFS Unavailable Lindsay Carey OD Unavailable [place] PaulRavi bajwa MD Unavailable Arabella Fishman MA Unavailable [phone] Richard Kam MD Unavailable Marisol Patel [facility] Unavailable Gaby Vila DO Unavailable [phone] Rosemarie Mcdowell RN Unavailable Ravi Brownlee MD Unavailable Mitra Kendall [employer]SEMBL[employer] Unavailable Lizet Mann PA-C Unavailable [phone] Ravi Brownlee MD Unavailable [phone] Nav Hughes MD Unavailable [phone] Manuel Ahn OD Unavailable [phone] Arabella Fishman MA Unavailable Thalia Charles [facility] Unavailable Unavailable Encounter Details Date Type Department Care Team (Late st Contact Info) Description 08/15/2020 [facility] Medical Advice [address] [address] Estella Hassan, [facility] [address] [place] [address] Social History Tobacco Use Types Packs/Day Years [...] and Family Not on file 05/31/2019 Attends Zoroastrianism Services Not on file 05/30 Active Member [...] points; Administer PHQ-9 if positive 1 08/06/2020 [facility] Occupat ional Health - Occupational Stress [...] on file Legal 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 RECORDS MANAGEMENT DIRECTOR Gender Identity Not on file Sexual [...] st Contact Info) Description 02/01/2024 3:00 PM RECORDS MANAGEMENT DIRECTOR Office Visit [facility] 6341 [place] [phone] [facility] [address] [place] [address] 02/02/2024 1:30 PM RECORDS MANAGEMENT DIRECTOR Therapy Visit [facility] Rehabilitation [place] Specialty [place] [address] [facility] 300 [place] [phone] Alicja Roldan OT 909 [place] [address] 02/05/2024 8:00 PM RECORDS MANAGEMENT DIRECTOR Therapy Visit [facility] [place] [address] [place] [address] 103 [place] [phone] 02/13/2024 4:30 PM RECORDS MANAGEMENT DIRECTOR Oncology Visit [facility] 909 [place] [phone] Marian Agustin APRN [facility] [address] [address] [facility] 207 [place] [address] 03/01/2024 7:00 AM RECORDS MANAGEMENT DIRECTOR Office Visit [address] [phone] Estella Hassan, [facility] 3033 [place] [address] 03/23/2024 2:00 PM RECORDS MANAGEMENT DIRECTOR Office Visit [facility] [address] [place] [address] [place] [address] Lizet Mann PA-C [address] [place] [address] 03/29/2024 3:30 PM RECORDS MANAGEMENT DIRECTOR Office Visit [facility] 2945 [facility] 200 [place] [phone] Hakeem Chacko MBBS 2945 [place] [address] 05/03/2024 3:00 PM RECORDS MANAGEMENT DIRECTOR Office Visit [facility] [address] [place] [address] Gaurav Valenzuela, [employer] [address] 073734 05/22/2024 10:30 AM CDT Office Visit [address] [phone] Estella Hassan, [place] [address] [place] [address] 05/22/2024 11:30 AM CDT Office Visit [address] [phone] Va Glez MD [address] [place] [address] [phone] documented as of this encounter Visit Diagnoses Not on filedocumented in this encounter Additional Health Concerns Infection Onset Date Last Indicated Resolved Time Rule Out COVID-19 06/22/2021 06/22/2021 06/23/2021 8:58 PM CDT Rule Out COVID-19 01/22/2022 01/22/2022 01/24/2022 1:05 PM RECORDS MANAGEMENT DIRECTOR Rule Out COVID-19 01/25/2022 01/25/2022 01/25/2022 5:21 AM RECORDS MANAGEMENT DIRECTOR Influenza 01/25/2022 01/25/2022 02/01/2022 11:4 1 PM RECORDS MANAGEMENT DIRECTOR Rule Out COVID-19 07/29/2022 07/29/2022 07/31/2022 11:17 AM CDT Rule Out COVID-19 03/23/2023 03/23/2023 03/23/2023 6:30 PM RECORDS MANAGEMENT DIRECTOR COVID-19 03/23/2023 03/23/2023 04/13/2023 11:4 0 PM RECORDS MANAGEMENT DIRECTOR Rule Out COVID-19 06/05/2023 06/05/2023 06/05/2023 5:53 PM CDT Rule Out COVID-19 11/06/2023 11/06/2023 11/06/2023 11:05 PM CDT Rule Out COVID-19 11/20/2023 11/20/2023 11/20/2023 6:43 PM CDT Rule Out COVID-19 12/27/2023 12/27/2023 12/29/2023 1:37 PM CDT Assessment Noted Time PHQ-9 Depression Total Score: 7 08/08/19 21 7:03 AM CDT documented as of this encounter Care Teams Compression Molding Machine Tender Relationship Specialty [place] [address] [place] [address] PCP - General Family Practice 07/11/14 [place] [address] [place] [address] Assigned PCP 12/16/11 Kerry Bernal RN Personal Advocate & Liaison (PAL) 01/08/19 07/10/23 Ravi Barillas DPM [address] [facility] [address] [place] [address] Assigned Musculoskeletal Provider 03/23/20 10/30/21 Christy Campuzano PA-C [address] [place] [address] 608832 Referring Physician Family Medicine 04/22/20 Hans Cannon MD [address] [place] [address] 684232 Resident Pulmonary Disease 04/22/20 Mitra Kendall, [facility] Lead Pressure Sealer And Tester Primary Care - CC 01/08/1901/12 Burt Jovel MD Internal Medicine 05/08/20 12/13/23 Estella Hassan, [facility] 3033 [facility] [place], [place] [address] Pharmacist Pharmacist 05/26/20 Reji Chavez MD [address] [place] [phone] Assigned Heart and Vascular Provider 05/18/20 10/30/21 Elaina Moreno MD [address] [place] [address] 493125 Assigned Surgical Provider 05/18/20 11/19/22 Elaina Moreno MD 909 [place] [address] Cardiovascular & Thoracic Surgery 08/06/20 Kelsi Hassan MD 420 [facility] 284 [place] [address] Assigned Pulmonology Provider 06/28/21 02/05/22 John Webb MD [address] 835205 Cardiovascular Disease 08/25/21 John Webb MD [address] 778615 Cardiovascular Disease 08/25/21 Estella Hassan, [facility] 3033 [place] [address] Assigned MTM Pharmacist 09/05/21 Nav Hughes MD [address] [place] [address] Assigned Heart and Vascular Provider 10/31/21 09/03/23 Cassandra Mendoza MD ORTHOPAEDIC SURGERY [address] [address] Assigned Musculoskeletal Provider 10/31/21 08/13/22 Estella Hassan, [facility] [address] [place] [address] Assigned MTM Pharmacist 12/09/21 Mitra Kendall, [employer] Lead Pressure Sealer And Tester Primary Care - CC 01/26/2210/28 Lindsay Carey OD 3305 [facility] [place] [place] [address] Ophthalmology 01/29/22 Ravi Brownlee MD [address] [place] [address] 924015 Assigned Pulmonology Provider 02/06/22 09/03/23 Arabella Fishman MA Financial Resource Worker 02/22/22 02/23/22 Richard Kam MD [address] [place] [address] 928075 Assigned Musculoskeletal Provider 08/14/22 [facility] 1440 [facility] [address] [phone] Pharmacist Pharmacist 11/22/22 01/09/23 [place] [address] 589557 Assigned Neuroscience Provider 01/01/23 Rosemarie Mcdowell, RN Garment Folder Diabetes Education 03/17/23 Ravi Brownlee MD [address] [place] [address] 524575 Assigned Heart and Vascular Provider 09/04/23 01/03/24 Mitra Kendall LSW Lead Pressure Sealer And Tester Primary Care - CC 12/12/23 Lizet Mann PA-C 717 [place], [place] 001385 Assigned Cancer Care Provider 01/04/24 Ravi Brownlee MD 420 [facility] 276 [place], [place] 364715 Assigned Pulmonology Provider 01/04/24 Nav Hughes MD [address] [place] 9077[address] Assigned Heart and Vascular Provider 01/04/24 Manuel Ahn OD 6341 [facility] [place] [address] Babbitt Spinner 01/05/24 Arabella Fishman MA Financial Resource Worker 01/06/[address] [facility] Pharmacist Pharmacy 01/26/24 documented as of this encounter
--- OUTSIDE RECORDS SUMMARY | 2024-01-31 20:10 | XMS_ITS | Encounter Summary ---
Author Organization [facility] Address [address] [place] [address] Care Team Providers Care Labor Conciliator Name Role Phone Va Glez MD Primary Care Provider [phone] Va Glez MD Unavailable Kerry Bernal RN Unavailable [phone] Ravi Barillas DPM Unavailable [phone] Christy Campuzano PA-C Unavailable Hans Cannon MD Unavailable [phone] Mitra Kendall SOFTWARE PACKAGER Unavailable [phone] Burt Jovel MD Unavailable [phone] Estella Hassan [facility] Unavailable [phone] Reji Chavez MD Unavailable [phone] Josh Cordero MD, Madhuri Unavailable [phone] Josh Cordero MD, Madhuri Unavailable [phone] Kelsi Hassan MD Unavailable [phone] John Webb MD Unavailable [phone] John Webb MD Unavailable [phone] Estella Hassan [facility] Unavailable Nav Hughes MD Unavailable [phone] Cassandra Mendoza MD Unavailable Estella Hassan [facility] Unavailable Mitra Kendall SOFTWARE PACKAGER Unavailable Lindsay Carey OD Unavailable [place]Ravi bajwa MD Unavailable [phone] Arabella Fishman MA Unavailable [phone] Richard Kam MD Unavailable Marisol Patel [facility] Unavailable Gaby Vila DO Unavailable Rosemarie Mcdowell RN Unavailable [phone] Ravi Brownlee MD Unavailable Mitra Kendall SOFTWARE PACKAGER Unavailable Lizet Mann PA-C Unavailable Ravi Brownlee MD Unavailable Nav Hughes MD Unavailable [phone] Manuel Ahn OD Unavailable Arabella Fishman MA Unavailable [phone] Thalia Charles [facility] Unavailable Unavailable Encounter Details Date Type Department Care Team (Late st Contact Info) Description 08/14/2020 [facility] Medical Advice [address] [address] Estella Hassan, [facility] [address] [place] [address] Social History Tobacco Use Types Packs/Day Years [...] and Family Not on file 05/31/2019 Attends [employer] Not on file 05/30 Active Member [...] points; Administer PHQ-9 if positive 1 08/06/2020 [facility] [...] on file Legal 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 FAMILY CONSULTANT Gender Identity Not on file Sexual Orientation [...] st Contact Info) Description 02/01/2024 3:00 PM FAMILY CONSULTANT Office Visit [facility] [address] [place] [phone] [facility] [address] [place] [address] 02/02/2024 1:30 PM FAMILY CONSULTANT Therapy Visit [facility] [place] [facility] [place] [address] [facility] 300 [place] [phone] Alicja Roldan OT [address] [place] [address] 02/05/2024 8:00 PM FAMILY CONSULTANT Therapy Visit [facility] [address] [place] [phone] 02/13/2024 4:30 PM FAMILY CONSULTANT Oncology Visit [facility] 909 [place] [phone] Marian Agustin APRN [facility] [address] [facility] 207 [place] [address] 03/01/2024 7:00 AM FAMILY CONSULTANT Office Visit [address] [phone] Estella Hassan, [facility] [address] [place] [address] 03/23/2024 2:00 PM FAMILY CONSULTANT Office Visit [facility] [address] [place] [address] [place] [address] Lizet Mann PA-C [address] [place] [address] 03/29/2024 3:30 PM FAMILY CONSULTANT Office Visit [facility] 2945 [facility] 200 [place] [phone] Hakeem Chacko MBBS [address] [place] [address] 05/03/2024 3:00 PM FAMILY CONSULTANT Office Visit [facility] [address] [place] [phone] Gaurav Valenzuela, STREET LIGHT REPAIRER [address] 657364 05/22/2024 10:30 AM CDT Office Visit [address] [phone] Estella Hassan, [place] [address] [place] [address] 05/22/2024 11:30 AM CDT Office Visit [address] [phone] Va Glez MD [address] [place] [address] [phone] documented as of this encounter Visit Diagnoses Not on filedocumented in this encounter Additional Health Concerns Infection Onset Date Last Indicated Resolved Time Rule Out COVID-19 06/22/2021 06/22/2021 06/23/2021 8:58 PM CDT Rule Out COVID-19 01/22/2022 01/22/2022 01/24/2022 1:05 PM FAMILY CONSULTANT Rule Out COVID-19 01/25/2022 01/25/2022 01/25/2022 5:21 AM FAMILY CONSULTANT Influenza 01/25/2022 01/25/2022 02/01/2022 11:4 1 PM FAMILY CONSULTANT Rule Out COVID-19 07/29/2022 07/29/2022 07/31/2022 11:17 AM CDT Rule Out COVID-19 03/23/2023 03/23/2023 03/23/2023 6:30 PM FAMILY CONSULTANT COVID-19 03/23/2023 03/23/2023 04/13/2023 11:4 0 PM FAMILY CONSULTANT Rule Out COVID-19 06/05/2023 06/05/2023 06/05/2023 5:53 PM CDT Rule Out COVID-19 11/06/2023 11/06/2023 11/06/2023 11:05 PM CDT Rule Out COVID-19 11/20/2023 11/20/2023 11/20/2023 6:43 PM CDT Rule Out COVID-19 12/27/2023 12/27/2023 12/29/2023 1:37 PM CDT Assessment Noted Time PHQ-9 Depression Total Score: 7 08/08/19 21 7:03 AM CDT documented as of this encounter Care Teams Labor Conciliator Relationship Specialty [place] [address] [place] [address] PCP - General Family Practice 07/11/14 [place] [address] [place] [address] Assigned PCP 12/16/11 Kerry Bernal RN Personal Advocate & Liaison (PAL) 01/08/19 07/10/23 Ravi Barillas DPM [address] [facility] [address] [place] [address] Assigned Musculoskeletal Provider 03/23/20 10/30/21 Christy Campuzano PA-C [address] [place] [address] [id number] Referring Physician Family Medicine 04/22/20 [place] Cannon MD [address] [place] [address] 299012 Resident Pulmonary Disease 04/22/20 Mitra Kendall, [facility] Lead Print Line Tailer Primary Care - CC 01/08/1901/12 Burt Jovel MD Internal Medicine 05/08/20 12/13/23 Estella Hassan, [facility] [address] [facility] [place] [place] 799816 Pharmacist Pharmacist 05/26/20 Reji Chavez MD [address] [place] [phone] Assigned Heart and Vascular Provider 05/18/20 10/30/21 Elaina Moreno MD [address] [place] [address] 085955 Assigned Surgical Provider 05/18/20 11/19/22 Elaina Moreno MD 909 [place] [address] Cardiovascular & Thoracic Surgery 08/06/20 Kelsi Hassan MD 420 [facility] 284 [place] [address] Assigned Pulmonology Provider 06/28/21 02/05/22 John Webb MD [address] [id number] Cardiovascular Disease 08/25/21 John Webb MD [address] 139415 Cardiovascular Disease 08/25/21 Estella Hassan, [facility] [address] [place] [address] Assigned MTM Pharmacist 09/05/21 Nav Hughes MD [address] [place] [address] Assigned Heart and Vascular Provider 10/31/21 09/03/23 Cassandra Mendoza MD ORTHOPAEDIC SURGERY [address] [address] Assigned Musculoskeletal Provider 10/31/21 08/13/22 Estella Hassan, [facility] [address] [place] [address] Assigned MTM Pharmacist 12/09/21 Mitra Kendall, SOFTWARE PACKAGER Lead Print Line Tailer Primary Care - CC 01/26/2210/28 Lindsay Carey OD [address] [facility] [place] [place] [address] Ophthalmology 01/29/22 Ravi Brownlee MD [address] [place] [address] 791005 Assigned Pulmonology Provider 02/06/22 09/03/23 Arabella Fishman MA Financial Resource Worker 02/22/22 02/23/22 Richard Kam MD [address] [place] [address] [phone] Assigned Musculoskeletal Provider 08/14/22 [facility] 14[address] [facility] [place] [place] [phone] Pharmacist Pharmacist 11/22/22 01/09/23 [place] [address] 184637 Assigned Neuroscience Provider 01/01/23 Rosemarie Mcdowell, RN Coal Grader Diabetes Education 03/17/23 Ravi Brownlee MD [address] [place] [address] [phone] Assigned Heart and Vascular Provider 09/04/23 01/03/24 Mitra Kendall LSW Lead Print Line Tailer Primary Care - CC 12/12/23 Lizet Mann PA-C 717 [place], [place] 602725 Assigned Cancer Care Provider 01/04/24 Ravi Brownlee MD 420 [facility] 276 [place], [place] 063865 Assigned Pulmonology Provider 01/04/24 Nav Hughes MD [address] [place] 413715 Assigned Heart and Vascular Provider 01/04/24 Manuel Ahn OD [address] [facility] [place] 664632 Staffing Consultant 01/05/24 Arabella Fishman MA Financial Resource Worker 01/06/24 Thalia Charles [facility] Pharmacist Pharmacy 01/26/24 documented as of this encounter
--- OUTSIDE RECORDS SUMMARY | 2024-01-31 20:10 | XMS_ITS | Encounter Summary ---
Author Organization [facility] Address [address] [place] [address] Care Team Providers Care Rules Examiner Name Role Phone Va Glez MD Primary Care Provider [phone] Va Glez MD Unavailable Kerry Bernal RN Unavailable [phone] Ravi Barillas DPM Unavailable [phone] Christy Campuzano PA-C Unavailable [phone] Hans Cannon MD Unavailable Mitra Kendall DIRECTOR OF HOUSING Unavailable Burt Jovel MD Unavailable [phone] Estella Hassan [facility] Unavailable Reji Chavez MD Unavailable Josh Cordero MD, Madhuri Unavailable [phone] Josh Cordero MD, Madhuri Unavailable [phone] Kelsi Hassan MD Unavailable [phone] John Webb MD Unavailable John Webb MD Unavailable [phone] Estella Hassan [facility] Unavailable Nav Hughes MD Unavailable [phone] Cassandra Mendoza MD Unavailable Estella Hassan [facility] Unavailable Mitra Kendall DIRECTOR OF HOUSING Unavailable Lindsay Carey OD Unavailable MiltonRavi bajwa MD Unavailable Arabella Fishman MA Unavailable [phone] Richard Kam MD Unavailable Marisol Patel [facility] Unavailable Gaby Vila DO Unavailable Rosemarie Mcdowell RN Unavailable Ravi Brownlee MD Unavailable Mitra Kendall DIRECTOR OF HOUSING Unavailable [phone] Lizet Mann PA-C Unavailable [phone] Ravi Brownlee MD Unavailable [phone] Nav Hughes MD Unavailable [phone] Manuel Ahn OD Unavailable Arabella Fishman MA Unavailable [phone] Thalia Charles [facility] Unavailable Unavailable Encounter Details Date Type Department Care Team (Late st Contact Info) Description 08/08/2020 [facility] [place] Adv[place] [address] [address] Estella Hassan, [facility] [address] [place] [address] Social History Tobacco Use Types Packs/Day Years [...] points; Administer PHQ-9 if positive 1 08/06/2020 [facility] - Occupational [...] on file Legal 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 VENEER STAPLER Gender Identity Not on file Sexual Orientation [...] st Contact Info) Description 02/01/2024 3:00 PM VENEER STAPLER Office Visit [facility] 6[address] [place] [phone] [facility] [address] [place] [address] 02/02/2024 1:30 PM VENEER STAPLER Therapy Visit [facility] [place] [facility] [place] [address] [facility] 300 [place] [phone] Alicja Roldan OT 909 [place] [address] 02/05/2024 8:00 PM VENEER STAPLER Therapy Visit [facility] [address] [place] [phone] 02/13/2024 4:30 PM VENEER STAPLER Oncology Visit [facility] 909 [place] [phone] Marian Agustin APRN [facility] [address] [facility] 207 [place] [address] 03/01/2024 7:00 AM VENEER STAPLER Office Visit [address] [phone] Estella Hassan, [facility] [address] [place] [address] 03/23/2024 2:00 PM VENEER STAPLER Office Visit [facility] [address] [place] [address] [place] [address] Lizet Mann PA-C [address] [place] [address] 03/29/2024 3:30 PM VENEER STAPLER Office Visit [facility] 2945 [facility] 200 [place] [phone] Hakeem Chacko MBBS 2945 [place] [address] 05/03/2024 3:00 PM VENEER STAPLER Office Visit [facility] [address] [place] [phone] Gaurav Valenzuela, ORDERING BOX OPERATOR [address] 547454 05/22/2024 10:30 AM CDT Office Visit [address] [phone] Estella Hassan, [place] [address] [place] [address] 05/22/2024 11:30 AM CDT Office Visit [address] [phone] Va Glez MD [address] [place] [address] [phone] documented as of this encounter Visit Diagnoses Not on filedocumented in this encounter Additional Health Concerns Infection Onset Date Last Indicated Resolved Time Rule Out COVID-19 06/22/2021 06/22/2021 06/23/2021 8:58 PM CDT Rule Out COVID-19 01/22/2022 01/22/2022 01/24/2022 1:05 PM VENEER STAPLER Rule Out COVID-19 01/25/2022 01/25/2022 01/25/2022 5:21 AM VENEER STAPLER Influenza 01/25/2022 01/25/2022 02/01/2022 11:4 1 PM VENEER STAPLER Rule Out COVID-19 07/29/2022 07/29/2022 07/31/2022 11:17 AM CDT Rule Out COVID-19 03/23/2023 03/23/2023 03/23/2023 6:30 PM VENEER STAPLER COVID-19 03/23/2023 03/23/2023 04/13/2023 11:4 0 PM VENEER STAPLER Rule Out COVID-19 06/05/2023 06/05/2023 06/05/2023 5:53 PM CDT Rule Out COVID-19 11/06/2023 11/06/2023 11/06/2023 11:05 PM CDT Rule Out COVID-19 11/20/2023 11/20/2023 11/20/2023 6:43 PM CDT Rule Out COVID-19 12/27/2023 12/27/2023 12/29/2023 1:37 PM CDT Assessment Noted Time PHQ-9 Depression Total Score: 7 08/08/19 21 7:03 AM CDT documented as of this encounter Care Teams Rules Examiner Relationship Specialty [place] [address] [place] [address] PCP - General Family Practice 07/11/14 [place] [address] [place] [address] Assigned PCP 12/16/11 Kerry Bernal RN Personal Advocate & Liaison (PAL) 01/08/19 07/10/23 Ravi Barillas DPM [address] [facility] [address] [place] [address] Assigned Musculoskeletal Provider 03/23/20 10/30/21 Christy Campuzano PA-C [address] [place] [address] 235832 Referring Physician Family Medicine 04/22/20 [place] Cannon MD [address] [place] [address] [id number] Resident Pulmonary Disease 04/22/20 Mitra Kendall, [facility] Lead Rail Loader Primary Care - CC 01/08/1901/12 Burt Jovel MD Internal Medicine 05/08/20 12/13/23 Estella Hassan, [facility] 3033 [facility] [place], [place] 503236 Pharmacist Pharmacist 05/26/20 Reji Chavez MD [address] [place] [phone] Assigned Heart and Vascular Provider 05/18/20 10/30/21 Elaina Moreno MD [address] [place] [address] 013745 Assigned Surgical Provider 05/18/20 11/19/22 Elaina Moreno MD 909 [place] [address] Cardiovascular & Thoracic Surgery 08/06/20 Kelsi [place] MD 420 [facility] 284 [place] [address] Assigned Pulmonology Provider 06/28/21 02/05/22 John Webb MD [address] 040465 Cardiovascular Disease 08/25/21 John Webb MD [address] 837555 Cardiovascular Disease 08/25/21 Estella Hassan, [facility] [address] [place] [address] Assigned MTM Pharmacist 09/05/21 Nav Hughes MD [address] [place] [address] Assigned Heart and Vascular Provider 10/31/21 09/03/23 Cassandra Mendoza MD ORTHOPAEDIC SURGERY [address] [address] Assigned Musculoskeletal Provider 10/31/21 08/13/22 Estella Hassan, [facility] [address] [place] [address] Assigned MTM Pharmacist 12/09/21 Mitra Kendall, DIRECTOR OF HOUSING Lead Rail Loader Primary Care - CC 01/26/2210/28 Lindsay Carey OD [address] [facility] [place] [place] [address] Ophthalmology 01/29/22 Ravi Brownlee MD [address] [place] [address] 799455 Assigned Pulmonology Provider 02/06/22 09/03/23 Arabella Fishman MA Financial Resource Worker 02/22/22 02/23/22 Richard Kam MD [address] [place] [address] 729955 Assigned Musculoskeletal Provider 08/14/22 [facility] 1440 [facility] [address] [phone] Pharmacist Pharmacist 11/22/22 01/09/23 [place] [address] 002817 Assigned Neuroscience Provider 01/01/23 Rosemarie Mcdowell, RN Toll Bridge Operator Diabetes Education 03/17/23 Ravi Brownlee MD [address] [place] [address] 675325 Assigned Heart and Vascular Provider 09/04/23 01/03/24 Mitra Kendall LSW Lead Rail Loader Primary Care - CC 12/12/23 Lizet Mann PA-C 717 [place], [place] 902075 Assigned Cancer Care Provider 01/04/24 Ravi Brownlee MD 420 [facility] 276 [place], [place] 108815 Assigned Pulmonology Provider 01/04/24 Nav Hughes MD [address] [place] 9[address]05 Assigned Heart and Vascular Provider 01/04/24 Manuel Ahn OD 6341 [facility] [place] 092372 Compliance Engineer Products 01/05/24 Arabella Fishman MA Financial Resource Worker 01/06/24 Thalia Charles [facility] Pharmacist Pharmacy 01/26/24 documented as of this encounter
--- OUTSIDE RECORDS SUMMARY | 2024-01-31 20:10 | XMS_ITS | Encounter Summary ---
Author Organization [facility] Address [address] [place] [address] Care Team Providers Care Sander And Polisher Name Role Phone Va Glez MD Primary Care Provider Va Glez MD Unavailable Kerry Bernal RN Unavailable [phone] Ravi Barillas DPM Unavailable [phone] Christy Campuzano PA-C Unavailable [phone] Hans Cannon MD Unavailable [phone] Mitra Kendall REGIONAL CONTROLLER Unavailable [phone] Burt Jovel MD Unavailable [phone] Estella Hassan [facility] Unavailable [phone] Reji Chavez MD Unavailable [phone] Josh Cordero MD, Madhuri Unavailable [phone] Josh Cordero MD, Madhuri Unavailable [phone] Kelsi Hassan MD Unavailable [phone] John Webb MD Unavailable John Webb MD Unavailable [phone] Estella Hassan [facility] Unavailable Nav Hughes MD Unavailable [phone] Cassandra Mendoza MD Unavailable Estella Hassan H Unavailable Mitra Kendall REGIONAL CONTROLLER Unavailable Aurelio Lindsay Kenzie OD Unavailable Ravi Brownlee MD Unavailable Arabella Fishman MA Unavailable [phone] Richard Kam MD Unavailable Marisol Patel [facility] Unavailable Gaby Vila DO Unavailable Roseamrie Mcdowell RN Unavailable Ravi Brownlee MD Unavailable Mitra Kendall REGIONAL CONTROLLER Unavailable Lizet Mann PA-C Unavailable [phone] Ravi Brownlee MD Unavailable [phone] Nav Hughes MD Unavailable [phone] Manuel Ahn OD Unavailable Arabella Fishman MA Unavailable [phone] Thalia Charles [facility] Unavailable Unavailable Encounter Details Date Type Department Care Team (Late st Contact Info) Description 07/31/2020 [facility] [address] [place] [phone] Elaina Moreno MD [address] [place] [address] Social History Tobacco Use Types Packs/Day [...] Answer Date Recorded PHQ-2 Score 2 07/28/2020 [facility] of Occupat ional Health - Occupational Stress [...] on file Legal 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 CANE SPLICER Gender Identity Not on file Sexual Orientation [...] st Contact Info) Description 02/01/2024 3:00 PM CANE SPLICER Office Visit [facility] 6[address] [place] [phone] Manuel Ahn, [address] [place] [address] 02/02/2024 1:30 PM CANE SPLICER Therapy Visit [facility] [address] [facility] [address] [place] [phone] Alicja Roldan OT 909 [place] [address] 02/05/2024 8:00 PM CANE SPLICER Therapy Visit [facility] [address] [place] [phone] 02/13/2024 4:30 PM CANE SPLICER Oncology Visit [facility] 909 [place] [phone] Marian Agustin, NESSA RADIO SURVEY WORKER [address] [facility] 207 [place], [place] [address]48[address] 03/01/2024 7:00 AM CANE SPLICER Office [facility] [address] [place] [phone] Estella Hassan, [facility] 3033 [place] [address] 03/23/2024 2:00 PM CANE SPLICER Office Visit [facility] [address] [place] [address] Lizet Mann PA-C 717 [place] [address] 03/29/2024 3:30 PM CANE SPLICER Office Visit [facility] 2945 [facility] 200 [place] [phone] Hakeem Chacko MBBS 2945 [place] [address] 05/03/2024 3:00 PM CANE SPLICER Office Visit [facility] [address] [place] [phone] Gaurav Valenzuela, BREAKFAST SERVER [facility] [address] [place] [address] 982504 05/22/2024 10:30 AM CDT Office Visit [address] [phone] Estella Hassan, [facility] 30[address] [place] [address] 05/22/2024 11:30 AM CDT Office Visit [address] [address] Va Glez MD [address] [place] [address] [phone] documented as of this encounter Visit Diagnoses Not on filedocumented in this encounter Additional Health Concerns Infection Onset Date Last Indicated Resolved Time Rule Out COVID-19 06/22/2021 06/22/2021 06/23/2021 8:58 PM CDT Rule Out COVID-19 01/22/2022 01/22/2022 01/24/2022 1:05 PM CANE SPLICER Rule Out COVID-19 01/25/2022 01/25/2022 01/25/2022 5:21 AM CANE SPLICER Influenza 01/25/2022 01/25/2022 02/01/2022 11:4 1 PM CANE SPLICER Rule Out COVID-19 07/29/2022 07/29/2022 07/31/2022 11:17 AM CDT Rule Out COVID-19 03/23/2023 03/23/2023 03/23/2023 6:30 PM CANE SPLICER COVID-19 03/23/2023 03/23/2023 04/13/2023 11:4 0 PM CANE SPLICER Rule Out COVID-19 06/05/2023 06/05/2023 06/05/2023 5:53 PM CDT Rule Out COVID-19 11/06/2023 11/06/2023 11/06/2023 11:05 PM CDT Rule Out COVID-19 11/20/2023 11/20/2023 11/20/2023 6:43 PM CDT Rule Out COVID-19 12/27/2023 12/27/2023 12/29/2023 1:37 PM CDT Assessment Noted Time PHQ-9 Depression Total Score: 7 07/29/19 21 7:03 AM CDT documented as of this encounter Care Teams Sander And Polisher Relationship Specialty [place] [address] [place] [address] PCP - General Family Practice 07/11/14 [place] [address] [place] [address] Assigned PCP 12/16/11 Kerry Bernal RN Personal Advocate & Liaison (PAL) 01/08/19 07/10/23 Ravi Barillas DPM [address] [facility] [address] [place] [address] Assigned Musculoskeletal Provider 03/23/20 10/30/21 Christy Campuzano PA-C [address] [place] [address] [phone] Referring Physician Family Medicine 04/22/20 Hans Cannon MD [address] [place] [address] [phone] Resident Pulmonary Disease 04/22/20 Mitra Kendall, [facility] Lead Tax Services Specialist Primary Care - CC 01/08/1901/12 Burt Jovel MD Internal Medicine 05/08/20 12/13/23 Estella Hassan, [facility] [address] [place], [place] [phone] Pharmacist Pharmacist 05/26/20 Reji Chavez MD [address] [place] [phone] Assigned Heart and Vascular Provider 05/18/20 10/30/21 Elania Moreno MD [address] [place] [address] Assigned Surgical Provider 05/18/20 11/19/22 Elaina Moreno MD 909 [place] [address] Cardiovascular & Thoracic Surgery 08/06/20 Kelsi Hassan MD [address] [place] [address] 284 [place] [address] Assigned Pulmonology Provider 06/28/21 02/05/22 John Webb MD [address] [place] [address] Cardiovascular Disease 08/25/21 John Webb MD [address] [place] [address] Cardiovascular Disease 08/25/21 Estella Hassan, [facility] 30[address] [place] [address] Assigned MTM Pharmacist 09/05/21 Nav Hughes MD [address] [place] [address] Assigned Heart and Vascular Provider 10/31/21 09/03/23 Cassandra Mendoza MD ORTHOPAEDIC SURGERY [address] [address] Assigned Musculoskeletal Provider 10/31/21 08/13/22 Estella Hassan, [facility] [address] [place] [address] Assigned MTM Pharmacist 12/09/21 Mitra Kendall, [facility] Lead Tax Services Specialist Primary Care - CC 01/26/2210/28 Lindsay Carey OD [address] [facility] [place] [address] Ophthalmology 01/29/22 Ravi Brownlee MD [address] [place] [address] 276 [place], [place] 115275 Assigned Pulmonology Provider 02/06/22 09/03/23 Arabella Fishman MA Financial Resource Worker 02/22/22 02/23/22 Richard Kam MD [address] [place] [address] 585125 Assigned Musculoskeletal Provider 08/14/22 [facility] [address] [facility] [address] [place] [phone] Pharmacist Pharmacist 11/22/22 01/09/23 [place] [address] [address] Assigned Neuroscience Provider 01/01/23 Rosemarie Mcdowell, RN Balance Wheel Motion Inspector Diabetes Education 03/17/23 Ravi Brownlee MD [address] [place] [address] 276 [place], [place] 035635 Assigned Heart and Vascular Provider 09/04/23 01/03/24 Mitra Kendall, [facility] Lead Tax Services Specialist Primary Care - CC 12/12/23 Lizet Mann PA-C 717 [place] [address] Assigned Cancer Care Provider 01/04/24 Ravi Brownlee MD [address] [facility] 276 [place], [place] 130965 Assigned Pulmonology Provider 01/04/24 Nav Hughes MD 6[address] [facility] [place] 177795 Assigned Heart and Vascular Provider 01/04/24 Manuel Ahn OD [address] [facility] SH[place]DS 914322 Anti Air Warfare Operations Officer 01/05/24 Arabella Fishman MA Financial Resource Worker 01/06/24 Thalia Charles [facility] Pharmacist Pharmacy 01/26/24 documented as of this encounter
--- OUTSIDE RECORDS SUMMARY | 2024-01-31 20:10 | XMS_ITS | Encounter Summary ---
Author Organization [facility] Address [address] [place] [address] Care Team Providers Care Pin Inserter Regulator Name Role Phone Va Glez MD Primary Care Provider Va Glez MD Unavailable Kerry Bernal RN Unavailable [phone] Ravi Barillas DPM Unavailable [phone] Christy Campuzano PA-C Unavailable Hans Cannon MD Unavailable Mitra Kendall HOST/HOSTESS GROUND Unavailable Burt Jovel MD Unavailable Estella Hassan [facility] Unavailable [phone] Reji Chavez MD Unavailable [phone] Josh Cordero MD, Madhuri Unavailable [phone] Josh Cordero MD, Madhuri Unavailable [phone] Kelsi Hassan MD Unavailable [phone] John Webb MD Unavailable [phone] John Webb MD Unavailable [phone] Estella Hassan [facility] Unavailable [phone] Nav Hughes MD Unavailable [phone] Cassandra Mendoza MD Unavailable Estella Hassan [facility] Unavailable Mitra Kendall HOST/HOSTESS GROUND Unavailable [phone] Lindsay Carey OD Unavailable [phone] Loves ParkRavi bajwa MD Unavailable Arabella Fishman MA Unavailable [phone] Richard Kam MD Unavailable Marisol Patel [facility] Unavailable Gaby Vila DO Unavailable Rosemarie Mcdowell RN Unavailable [phone] Ravi Brownlee MD Unavailable Mitra Kendall HOST/HOSTESS GROUND Unavailable Lizet Mann PA-C Unavailable Ravi Brownlee MD Unavailable [phone] Nav Hughes MD Unavailable [phone] Manuel Ahn OD Unavailable Arabella Fishman MA Unavailable [phone] Thalia Charles [facility] Unavailable Unavailable Encounter Details Date Type Department Care Team (Late st Contact Info) Description 07/27/2020 [facility] [address] [address] Estella Hassan, [facility] 30[address] [place] [address] Social History Tobacco Use Types Packs/Day Years [...] and Family Not on file 05/31/2019 Attends Gnosticism Services Not on file 05/30 Active Member [...] Answer Date Recorded PHQ-2 Score 2 07/28/2020 [facility] of Occupat [...] on file Legal 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 RITUAL CIRCUMCISER Gender Identity Not on file Sexual Orientation [...] st Contact Info) Description 02/01/2024 3:00 PM RITUAL CIRCUMCISER Office Visit [facility] 6341 [place] [phone] Manuel Ahn, 6[address] [place] [address] 02/02/2024 1:30 PM RITUAL CIRCUMCISER Therapy Visit [facility] [address] [facility] [address] [place] [phone] Alicja Roldan OT 909 [place] [address] 02/05/2024 8:00 PM RITUAL CIRCUMCISER Therapy Visit [facility] [address] [place] [phone] 02/13/2024 4:30 PM RITUAL CIRCUMCISER Oncology Visit [facility] 909 [place] [phone] Marian Agustin, NESSA MANAGER OF REVENUE [address] [facility] 207 [place], [place] 3622[address] 03/01/2024 7:00 AM RITUAL CIRCUMCISER Office Visit [facility] [address] [place] [phone] Estella Hassan, [facility] 30[address] [place] [address] 03/23/2024 2:00 PM RITUAL CIRCUMCISER Office Visit [facility] [address] [facility] [place] [address] Lizet Mann PA-C 717 [place] [address] 03/29/2024 3:30 PM RITUAL CIRCUMCISER Office Visit [facility] 2945 [facility] 200 [place] [phone] Hakeem Chacko MBBS 2945 [place] [address] 05/03/2024 3:00 PM RITUAL CIRCUMCISER Office Visit [facility] [address] [place] [phone] Gaurav Valenzuela, EXTRUDER OPERATOR HELPER [address] 267824 05/22/2024 10:30 AM CDT Office Visit [address] [phone] [facility]ella [facility] 30[address] [place] [address] 05/22/2024 11:30 AM CDT Office Visit [address] [address] Va Glez MD [address] [place] [address] [phone] documented as of this encounter Visit Diagnoses Not on filedocumented in this encounter Additional Health Concerns Infection Onset Date Last Indicated Resolved Time Rule Out COVID-19 06/22/2021 06/22/2021 06/23/2021 8:58 PM CDT Rule Out COVID-19 01/22/2022 01/22/2022 01/24/2022 1:05 PM RITUAL CIRCUMCISER Rule Out COVID-19 01/25/2022 01/25/2022 01/25/2022 5:21 AM RITUAL CIRCUMCISER Influenza 01/25/2022 01/25/2022 02/01/2022 11:4 1 PM RITUAL CIRCUMCISER Rule Out COVID-19 07/29/2022 07/29/2022 07/31/2022 11:17 AM CDT Rule Out COVID-19 03/23/2023 03/23/2023 03/23/2023 6:30 PM RITUAL CIRCUMCISER COVID-19 03/23/2023 03/23/2023 04/13/2023 11:4 0 PM RITUAL CIRCUMCISER Rule Out COVID-19 06/05/2023 06/05/2023 06/05/2023 5:53 PM CDT Rule Out COVID-19 11/06/2023 11/06/2023 11/06/2023 11:05 PM CDT Rule Out COVID-19 11/20/2023 11/20/2023 11/20/2023 6:43 PM CDT Rule Out COVID-19 12/27/2023 12/27/2023 12/29/2023 1:37 PM CDT Assessment Noted Time PHQ-9 Depression Total Score: 7 07/29/19 7:03 AM CDT documented as of this encounter Care Teams Pin Inserter Regulator Relationship Specialty [place] [address] [place] [address] PCP - General Family Practice 07/11/14 [place] [address] [place] [address] Assigned PCP 12/16/11 Kerry Bernal, INOCENCIO Personal Advocate & Liaison (PAL) 01/08/19 07/10/23 Ravi Barillas DPM [address] [facility] [address] [place] [address] Assigned Musculoskeletal Provider 03/23/20 10/30/21 Christy Campuzano PA-C [address] [place] [address] [phone] Referring Physician Family Medicine 04/22/20 Hans Cannon MD [address] [place] [address] 510072 Resident Pulmonary Disease 04/22/20 Mitra Kendall, [facility] Lead Gas Station Cashier Primary Care - CC 01/08/1901/12 Burt Jovel MD Internal Medicine 05/08/20 12/13/23 Estella Hassan, [facility] 30[address] [place], [place] 460966 Pharmacist Pharmacist 05/26/20 Reji Chavez MD [address] [place] [phone] Assigned Heart and Vascular Provider 05/18/20 10/30/21 Elaina Moreno MD [address] [place] [address] Assigned Surgical Provider 05/18/20 11/19/22 Elaina Moreno MD 909 [place] [address] Cardiovascular & Thoracic Surgery 08/06/20 Kelsi Hassan MD [address] [place] [address] 284 [place] [address] Assigned Pulmonology Provider 06/28/21 02/05/22 John Webb MD [address] [place] [address] Cardiovascular Disease 08/25/21 John Webb MD [address] [place] [address] Cardiovascular Disease 08/25/21 Estella Hassan, [facility] 30[address] [place] [address] Assigned MTM Pharmacist 09/05/21 Nav Hughes MD [address] [place] [address] Assigned Heart and Vascular Provider 10/31/21 09/03/23 Cassandra Mendoza MD ORTHOPAEDIC SURGERY [address] [address] Assigned Musculoskeletal Provider 10/31/21 08/13/22 Estella Hassan, [facility] [address]33 [place] [address] Assigned MTM Pharmacist 12/09/21 Mitra Kendall, [facility] Lead Gas Station Cashier Primary Care - CC 01/26/2210/28 Lindsay Carey OD [address] [facility] [place] [place] [address] Ophthalmology 01/29/22 Ravi Brownlee MD [address] [place] [address] 276 [place], [place] 653065 Assigned Pulmonology Provider 02/06/22 09/03/23 Arabella Fishman MA Financial Resource Worker 02/22/22 02/23/22 Richard Kam MD [address] [place] [address] [phone] Assigned Musculoskeletal Provider 08/14/22 [facility] [address] [facility] [address] [place] [phone] Pharmacist Pharmacist 11/22/22 01/09/23 [place] [address] [address] Assigned Neuroscience Provider 01/01/23 Rosemarie Mcdowell, RN Instructional Support Specialist Diabetes Education 03/17/23 Ravi Brownlee MD [address] [place] [address] 276 [place], [place] 376585 Assigned Heart and Vascular Provider 09/04/23 01/03/24 Mitra Kendall, HOST/HOSTESS GROUND Lead Gas Station Cashier Primary Care - CC 12/12/23 Lizet Mann PA-C 717 [place], [place] 069165 Assigned Cancer Care Provider 01/04/24 Ravi Brownlee MD 420 [facility] 276 [place], [place] 420885 Assigned Pulmonology Provider 01/04/24 Nav Hughes MD [address] [facility] [address] [place] [phone] Assigned Heart and Vascular Provider 01/04/24 Manuel Ahn OD 6[address] [facility] [place] 189902 Water Aerobics Instructor 01/05/24 Arabella Fishman MA Financial Resource Worker 01/06/24 Thalia Charles Anabel Pharmacist Pharmacy 01/26/24 documented as of this encounter
--- OUTSIDE RECORDS SUMMARY | 2024-01-31 20:11 | XMS_ITS | Encounter Summary ---
Author Organization [place] Address [address] [place] [address] Care Team Providers Care Manager Safe Name Role Phone Va Glez MD Primary Care Provider Va Glez MD Unavailable Kerry Bernal RN Unavailable [phone] Ravi Barillas DPM Unavailable [phone] Christy Campuzano PA-C Unavailable Hans Cannon MD Unavailable Mitra Kendall BLACKSMITH HAMMER OPERATOR Unavailable Burt Jovel MD Unavailable Estella Hassan [facility] Unavailable [phone] Reji Chavez MD Unavailable [phone] Josh Cordero MD, Madhuri Unavailable [phone] Josh Cordero MD, Madhuri Unavailable [phone] Kelsi Hassan MD Unavailable [phone] John Webb MD Unavailable John Webb MD Unavailable [phone] Estella Hassan [facility] Unavailable [phone] Nav Hughes MD Unavailable [phone] Cassandra Mendoza MD Unavailable [phone] Estella Hassan H Unavailable [phone] Mitra Kendall BLACKSMITH HAMMER OPERATOR Unavailable [phone] Aurelio Lindsay Kenzie OD Unavailable FrazerRavi bajwa MD Unavailable Arabella Fishman MA Unavailable [phone] Richard Kam MD Unavailable Marisol Patel [facility] Unavailable [phone] Gaby Vila DO Unavailable Rosemarie Mcdowell RN Unavailable Ravi Brownlee MD Unavailable Mitra Kendall BLACKSMITH HAMMER OPERATOR Unavailable Lizet Mann PA-C Unavailable Ravi Brownlee MD Unavailable Nav Hughes MD Unavailable [phone] Manuel Ahn OD Unavailable Arabella Fishman MA Unavailable [phone] Thalia Charles [facility] Unavailable Unavailable Encounter Details Date Type Department Care Team (Late st Contact Info) Description 07/16/2020 [facility] Preoperative Assessment Center [address] 5th [place] [address] Estela Dhillon, RN Social History Tobacco Use Types Packs/Day [...] and Family Not on file 05/31/2019 Attends Latter Day Services Not on file 05/30 Active Member [...] 05/31/2019 PHQ-2 Answer Date Recorded PHQ-2 Score 0 06/05/2020 [facility] [place] of Occupat ional Health - Occupational Stress [...] on file Legal 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 FIELD ADMINISTRATIVE ASSISTANT Gender Identity Not on file Sexual Orientation Not on file Occupation Industry Job Start Date Job End Date Not on file Not on file Not on file Not on file COVID-19 Exposure Response Date Recorded In the last month, have you been in contact with someone who was confirmed or suspected to have Coronavirus / COVID-19? No / Unsure 07/18/2020 2:15 PM CDT documented as of this encounter Plan of Treatment Upcoming Encounters Date Type Department Care Team (Late st Contact Info) Description 02/01/2024 3:00 PM FIELD ADMINISTRATIVE ASSISTANT Office Visit [facility] 6[address] [place] [phone] Manuel Ahn, [address] [place] [address] 02/02/2024 1:30 PM FIELD ADMINISTRATIVE ASSISTANT Therapy Visit [facility] [place] [facility] [place] [address] [facility] [address] [place] [phone] Alicja Roldan, OT 909 [place] [address] 02/05/2024 8:00 PM FIELD ADMINISTRATIVE ASSISTANT Therapy Visit [facility] [address] [place] [address] 103 [place] [phone] 02/13/2024 4:30 PM FIELD ADMINISTRATIVE ASSISTANT Oncology Visit [facility] 909 [place] [phone] Marian Agustin, TELEPHONIC RN CABLE TELEVISION PROGRAM DIRECTOR [address] [facility] 207 [place] [address] 03/01/2024 7:00 AM FIELD ADMINISTRATIVE ASSISTANT Office [facility] [address] [place] [phone] Estella Hassan, [facility] 3033 [place] [address] 03/23/2024 2:00 PM FIELD ADMINISTRATIVE ASSISTANT Office Visit [facility] [address] [place] [address] [place] [address] Lizet Mann PA-C 717 [place] [address] 03/29/2024 3:30 PM FIELD ADMINISTRATIVE ASSISTANT Office Visit [facility] [address] [facility] [address] [place] [address] Hakeem Chacko MBBS [address]45 [place] [address] 05/03/2024 3:00 PM FIELD ADMINISTRATIVE ASSISTANT Office Visit [facility] [place] [address] [place] [phone] Gaurav Valenzuela, TELEPHONIC RN [facility] [address] [place] [address] 05/22/2024 10:30 AM CDT Office Visit [address] [phone] Estella Hassan, [facility] [address] [place] [address] 05/22/2024 11:30 AM CDT Office Visit [facility] [address] [place] [phone] [place] [id number] [place] [address] [phone] documented as of this encounter Visit Diagnoses Not on filedocumented in this encounter Additional Health Concerns Infection Onset Date Last Indicated Resolved Time Rule Out COVID-19 06/22/2021 06/22/2021 06/23/2021 8:58 PM CDT Rule Out COVID-19 01/22/2022 01/22/2022 01/24/2022 1:05 PM FIELD ADMINISTRATIVE ASSISTANT Rule Out COVID-19 01/25/2022 01/25/2022 01/25/2022 5:21 AM FIELD ADMINISTRATIVE ASSISTANT Influenza 01/25/2022 01/25/2022 02/01/2022 11:4 1 PM FIELD ADMINISTRATIVE ASSISTANT Rule Out COVID-19 07/29/2022 07/29/2022 07/31/2022 11:17 AM CDT Rule Out COVID-19 03/23/2023 03/23/2023 03/23/2023 6:30 PM FIELD ADMINISTRATIVE ASSISTANT COVID-19 03/23/2023 03/23/2023 04/13/2023 11:4 0 PM FIELD ADMINISTRATIVE ASSISTANT Rule Out COVID-19 06/05/2023 06/05/2023 06/05/2023 5:53 PM CDT Rule Out COVID-19 11/06/2023 11/06/2023 11/06/2023 11:05 PM CDT Rule Out COVID-19 11/20/2023 11/20/2023 11/20/2023 6:43 PM CDT Rule Out COVID-19 12/27/2023 12/27/2023 12/29/2023 1:37 PM CDT Assessment Noted Time PHQ-9 Depression Total Score: 2 06/06/19 12:47 PM CDT documented as of this encounter Care Teams Manager Safe Relationship Specialty [place] [address] [place] [address] PCP - General Family Practice 07/11/14 [place] [address] [place] [address] Assigned PCP 12/16/11 Kerry Bernal, INOCENCIO Personal Advocate & Liaison (PAL) 01/08/19 07/10/23 Ravi Barillas DPM [address] [place] [address] [address] [place] [address] Assigned Musculoskeletal Provider 03/23/20 10/30/21 Christy Campuzano PA-C [address] [place] [address] 556402 Referring Physician Family Medicine 04/22/20 Hans Cannon MD [address] [place] [address] Resident Pulmonary Disease 04/22/20 Mitra Kendall, [facility] Lead Nursing Home Director Primary Care - CC 01/08/1901/12 Burt Jovel MD Internal Medicine 05/08/20 12/13/23 Estella Hassan, [facility] [address], [place] 721726 Pharmacist Pharmacist 05/26/20 Reji Chavez MD [address] [place] [phone] Assigned Heart and Vascular Provider 05/18/20 10/30/21 Elaina Moreno MD [address] [place] [address] 196415 Assigned Surgical Provider 05/18/20 11/19/22 Elaina Moreno MD [address] [place] [address] 226635 Cardiovascular & Thoracic Surgery 08/06/20 Kelsi Hassan MD [address] [place] [address] 284 [place] [address] Assigned Pulmonology Provider 06/28/21 02/05/22 John Webb MD [address] 949055 Cardiovascular Disease 08/25/21 John Webb MD [address] 896275 Cardiovascular Disease 08/25/21 Estella Hassan, [facility] [address] [place] [address] Assigned MTM Pharmacist 09/05/21 Nav Hughes MD [address] [place] [address] Assigned Heart and Vascular Provider 10/31/21 09/03/23 Cassandra Mendoza MD ORTHOPAEDIC SURGERY [address] [place] [address] Assigned Musculoskeletal Provider 10/31/21 08/13/22 Estella Hassan, [facility] [place] [address] Assigned MTM Pharmacist 12/09/21 Mitra Kendall, BLACKSMITH HAMMER OPERATOR Lead Nursing Home Director Primary Care - CC 01/26/2210/28 Lindsay Carey OD [address] [facility] [place] [address] Ophthalmology 01/29/22 Ravi Brownlee MD [address] [address] Assigned Pulmonology Provider 02/06/22 09/03/23 Arabella Fishman MA Financial Resource Worker 02/22/22 02/23/22 Richard Kam MD [address] [place] [address] Assigned Musculoskeletal Provider 08/14/22 [facility] [facility] [address] [place] [phone] Pharmacist Pharmacist 11/22/22 01/09/23 [place] [address] [place] [address] [address] Assigned Neuroscience Provider 01/01/23 Rosemarie Mcdowell, RN Senior Operations Manager Diabetes Education 03/17/23 Ravi Brownlee MD [address] [place] [address] Assigned Heart and Vascular Provider 09/04/23 01/03/24 Mitra Kendall, BLACKSMITH HAMMER OPERATOR Lead Nursing Home Director Primary Care - CC 12/12/23 Lizet Mann PA-C 717 [place] [address] Assigned Cancer Care Provider 01/04/24 Ravi Brownlee MD [address] [place] [address] 276 [place] [address] Assigned Pulmonology Provider 01/04/24 Nav Hughes MD [address] [address] Assigned Heart and Vascular Provider 01/04/24 Manuel Ahn OD [address] [facility] [place] [address] Locker Room Supervisor 01/05/24 Arabella Fishman MA Financial Resource Worker 01/06/24 Thalia Charles [facility] Pharmacist Pharmacy 01/26/24 documented as of this encounter
--- OUTSIDE RECORDS SUMMARY | 2024-01-31 20:11 | XMS_ITS | Encounter Summary ---
Author Organization [place] Address [address] [place] [address] Care Team Providers Care Reducing Machine Operator Name Role Phone Va Glez MD Primary Care Provider [phone] Va Glez MD Unavailable Kerry Bernal RN Unavailable [phone] Ravi Barillas DPM Unavailable [phone] Christy Campuzano PA-C Unavailable Hans Cannon MD Unavailable Mitra Kendall APPRENTICE COSMETOLOGIST Unavailable [phone] Burt Jovel MD Unavailable Estella Hassan [facility] Unavailable Reji Chavez MD Unavailable Josh Cordero MD, Madhuri Unavailable [phone] Josh Cordero MD, Madhuri Unavailable [phone] Kelsi Hassan MD Unavailable [phone] John Webb MD Unavailable John Webb MD Unavailable Estella Hassan [facility] Unavailable Nav Hughes MD Unavailable [phone] Cassandra Mendoza MD Unavailable [phone] Estella Hassan H Unavailable Mitra Kendall APPRENTICE COSMETOLOGIST Unavailable [phone] Aurelio Lindsay Kenzie OD Unavailable SebastianRavi bajwa MD Unavailable Arabella Fishman MA Unavailable [phone] Richard Kam MD Unavailable Marisol Patel [facility] Unavailable [phone] Gaby Vila DO Unavailable Rosemarie Mcdowell RN Unavailable Ravi Brownlee MD Unavailable Mitra Kendall APPRENTICE COSMETOLOGIST Unavailable Lizet Mann PA-C Unavailable Ravi Brownlee MD Unavailable [phone] Nav Hughes MD Unavailable [phone] Manuel Ahn OD Unavailable Arabella Fishman MA Unavailable [phone] Thalia Charles [facility] Unavailable Unavailable Encounter Details Date Type Department Care Team (Late st Contact Info) Description 07/16/2020 [facility] Preoperative Assessment Center [address] 5th [place] [address] Estela Dhillon, RN Social History [...] and Family Not on file 05/31/2019 Attends Church Services Not on file 05/30 Active Member [...] Answer Date Recorded PHQ-2 Score 0 06/05/2020 [facility] [place] of Occupat ional Health - Occupational Stress [...] on file Legal 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 LOGGING OPERATIONS INSPECTOR Gender Identity Not on file Sexual [...] st Contact Info) Description 02/01/2024 3:00 PM LOGGING OPERATIONS INSPECTOR Office Visit [facility] 6341 [place] [phone] Manuel Ahn, 6341 [place] [address] 02/02/2024 1:30 PM LOGGING OPERATIONS INSPECTOR Therapy Visit [facility] [place] [facility] [place] [address] [facility] [address] [place] [phone] Alicja Roldan, OT 909 [place] [address] 02/05/2024 8:00 PM LOGGING OPERATIONS INSPECTOR Therapy Visit [facility] [place] [address] [place] [address] 103 [place] [phone] 02/13/2024 4:30 PM LOGGING OPERATIONS INSPECTOR Oncology Visit [facility] 909 [place] [phone] Marian Agustin, APPRENTICE COSMETOLOGIST [employer] [address] [facility] 207 [place] [address] 03/01/2024 7:00 AM LOGGING OPERATIONS INSPECTOR Office Visit [facility] [address] [place] [phone] Estella Hassan, [facility] 3033 [place] [address] 03/23/2024 2:00 PM LOGGING OPERATIONS INSPECTOR Office Visit [facility] [address] [place] [address] [place] [address] Lizet Mann PA-C 717 [place] [address] 03/29/2024 3:30 PM LOGGING OPERATIONS INSPECTOR Office Visit [facility] [address] [facility] [address] [place] [address] Hakeem Chacko MBBS 2945 [place] [address] 05/03/2024 3:00 PM LOGGING OPERATIONS INSPECTOR Office Visit [facility] [place] [address] [place] [address] Gaurav Valenzuela, APPRENTICE COSMETOLOGIST [facility] [address] [place] [address] 05/22/2024 10:30 AM CDT Office Visit [address] [phone] Estella Hassan, [facility] 3033 [place] [address] 05/22/2024 11:30 AM CDT Office Visit [facility] [address] [place] [phone] [place]lez [place] [address] [place] [address] [phone] documented as of this encounter Visit Diagnoses Not on filedocumented in this encounter Additional Health Concerns Infection Onset Date Last Indicated Resolved Time Rule Out COVID-19 06/22/2021 06/22/2021 06/23/2021 8:58 PM CDT Rule Out COVID-19 01/22/2022 01/22/2022 01/24/2022 1:05 PM LOGGING OPERATIONS INSPECTOR Rule Out COVID-19 01/25/2022 01/25/2022 01/25/2022 5:21 AM LOGGING OPERATIONS INSPECTOR Influenza 01/25/2022 01/25/2022 02/01/2022 11:4 1 PM LOGGING OPERATIONS INSPECTOR Rule Out COVID-19 07/29/2022 07/29/2022 07/31/2022 11:17 AM CDT Rule Out COVID-19 03/23/2023 03/23/2023 03/23/2023 6:30 PM LOGGING OPERATIONS INSPECTOR COVID-19 03/23/2023 03/23/2023 04/13/2023 11:4 0 PM LOGGING OPERATIONS INSPECTOR Rule Out COVID-19 06/05/2023 06/05/2023 06/05/2023 [...] [place] [address] [place] [address] PCP - General Family Practice 07/11/14 [place] [address] [place] [address] Assigned PCP 12/16/11 Kerry Bernal, INOCENCIO Personal Advocate & Liaison (PAL) 01/08/19 07/10/23 Ravi Barillas DPM [address] [place] [address] [address] [place] [address] Assigned Musculoskeletal Provider 03/23/20 10/30/21 Christy Campuzano PA-C [address] [place] [address] 922142 Referring Physician Family Medicine 04/22/20 Hans Cannon MD [address] [place] [address] Resident Pulmonary Disease 04/22/20 Mitra Kendall, [facility] Lead Psychosocial Rehabilitation Counselor Primary Care - CC 01/08/1901/12 Burt Jovel MD Internal Medicine 05/08/20 12/13/23 Estella Hassan, [facility] [address], [place] 7523[address] Pharmacist Pharmacist 05/26/20 Reji Chavez MD [address] [place] [phone] Assigned Heart and Vascular Provider 05/18/20 10/30/21 Elaina Moreno MD [address] [place] [address] 505225 Assigned Surgical Provider 05/18/20 11/19/22 Elaina Moreno MD [address] [place] [address] 556885 Cardiovascular & Thoracic Surgery 08/06/20 Kelsi Hassan MD [address] [place] [address] 284 [place] [address] Assigned Pulmonology Provider 06/28/21 02/05/22 John Webb MD [address] 422355 Cardiovascular Disease 08/25/21 John Webb MD [address] 607915 Cardiovascular Disease 08/25/21 Estella Hassan, [facility] [address] [place] [address] Assigned MTM Pharmacist 09/05/21 Nav Hughes MD [address] [place] [address] Assigned Heart and Vascular Provider 10/31/21 09/03/23 Cassandra Mendoza MD ORTHOPAEDIC SURGERY [address] [place] [address] Assigned Musculoskeletal Provider 10/31/21 08/13/22 Estella Hassan, [facility] [place] [address] Assigned MTM Pharmacist 12/09/21 Mitra Kendall, APPRENTICE COSMETOLOGIST Lead Psychosocial Rehabilitation Counselor Primary Care - CC 01/26/2210/28 Lindsay Carey OD [address] [facility] [place] [address] Ophthalmology 01/29/22 Ravi Brownlee MD [address] [address] Assigned Pulmonology Provider 02/06/22 09/03/23 Arabella Fishman MA Financial Resource Worker 02/22/22 02/23/22 Richard Kam MD [address] [place] [address] Assigned Musculoskeletal Provider 08/14/22 [facility] [address] [place] [phone] Pharmacist Pharmacist 11/22/22 01/09/23 [place] [address] [place] [address] [address] Assigned Neuroscience Provider 01/01/23 Rosemarie Mcdowell, RN Senior Cisco Network Engineer Diabetes Education 03/17/23 Ravi Brownlee MD [address] [place] [address] Assigned Heart and Vascular Provider 09/04/23 01/03/24 Mitra Kendall, APPRENTICE COSMETOLOGIST Lead Psychosocial Rehabilitation Counselor Primary Care - CC 12/12/23 Lizet Mann PA-C 717 [place] [address] Assigned Cancer Care Provider 01/04/24 Ravi Brownlee MD [address] [place] [address] 276 [place] [address] Assigned Pulmonology Provider 01/04/24 Nav Hughes MD [address] [address] Assigned Heart and Vascular Provider 01/04/24 Manuel Ahn OD [address] [place] [address] Institutional Research Coordinator 01/05/24 Arabella Fishman MA Financial Resource Worker 01/06/24 Thalia Charles [facility] Pharmacist Pharmacy 01/26/24 documented as of this encounter
--- OUTSIDE RECORDS SUMMARY | 2024-01-31 20:11 | XMS_ITS | Encounter Summary ---
Author Organization [facility] Address [address] [place] [address] Care Team Providers Care Wire Drawer Name Role Phone Va Glez MD Primary Care Provider Va Glez MD Unavailable Kerry Bernal RN Unavailable [phone] Ravi Barillas DPM Unavailable [phone] Christy Campuzano PA-C Unavailable [phone] Hans Cannon MD Unavailable Mitra Kendall IPHONE DEVELOPER Unavailable [phone] Burt Jovel MD Unavailable [phone] Estella Hassan [facility] Unavailable [phone] Reji Chavez MD Unavailable [phone] Josh Cordero MD, Madhuri Unavailable [phone] Josh Cordero MD, Madhuri Unavailable [phone] Kelsi Hassan MD Unavailable [phone] John Webb MD Unavailable John Webb MD Unavailable Estella Hassan [facility] Unavailable [phone] Nav Hughes MD Unavailable [phone] Cassandra Mendoza MD Unavailable Estella Hassan H Unavailable Mitra Kendall IPHONE DEVELOPER Unavailable Aurelio Lindsay Kenzie OD Unavailable WalhondingRavi bajwa MD Unavailable Arabella Fishman MA Unavailable [phone] Richard Kam MD Unavailable Marisol Patel [facility] Unavailable [phone] Gaby Vila DO Unavailable Rosemarie Mcdowell RN Unavailable [phone] Ravi Brownlee MD Unavailable Mitra Kendall IPHONE DEVELOPER Unavailable Lizet Mann PA-C Unavailable Ravi Brownlee MD Unavailable Nav Hughes MD Unavailable [phone] Manuel Ahn OD Unavailable Arabella Fishman MA Unavailable [phone] Thalia Charles [facility] Unavailable Unavailable Encounter Details Date Type Department Care Team (Late st Contact Info) Description 07/24/2020 MyC Medical Advice [facility] [address] [place] [address] [place] [id number] [place] [address] Social History Tobacco Use Types Packs/Day [...] Answer Date Recorded PHQ-2 Score 2 07/28/2020 [facility] [...] on file Legal 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 SOCIAL MEDIA SENIOR ASSOCIATE Gender Identity Not on file Sexual Orientation [...] st Contact Info) Description 02/01/2024 3:00 PM SOCIAL MEDIA SENIOR ASSOCIATE Office Visit [facility] [address] [place] [phone] Manuel Ahn, [address] [place] [address] 02/02/2024 1:30 PM SOCIAL MEDIA SENIOR ASSOCIATE Therapy Visit [facility] [address] [facility] [address] [place] [phone] Alicja Roldan OT 909 [place] [address] 02/05/2024 8:00 PM SOCIAL MEDIA SENIOR ASSOCIATE Therapy Visit [facility] [address] [place] [phone] 02/13/2024 4:30 PM SOCIAL MEDIA SENIOR ASSOCIATE Oncology Visit [facility] 909 [place] [phone] Marian Agustin, PRIMER POWDER BLENDER WET EXPEDITIONARY FIGHTING VEHICLE CREWMAN [address] [facility] [address] [place], [place] [address] 03/01/2024 7:00 AM SOCIAL MEDIA SENIOR ASSOCIATE Office Visit [facility] [address] [place] [phone] Estella Hassan, [facility] 3033 [place] [address] 03/23/2024 2:00 PM SOCIAL MEDIA SENIOR ASSOCIATE Office Visit [facility] [address] [place] [address] Lizet Mann PA-C 717 [place] [address] 03/29/2024 3:30 PM SOCIAL MEDIA SENIOR ASSOCIATE Office Visit [facility] 2945 [facility] 200 [place] [phone] Hakeem Chacko MBBS 2945 [place] [address] 05/03/2024 3:00 PM SOCIAL MEDIA SENIOR ASSOCIATE Office Visit [facility] [address] [place] [phone] Gaurav Valenzuela, PRIMER POWDER BLENDER WET [facility] [address] [place] [address] 05/22/2024 10:30 AM CDT Office Visit [address] [phone] Estella Hassan, [facility] 30[address] [place] [address] 05/22/2024 11:30 AM CDT Office Visit [address] [address] [place] [address] [place], [place] [phone] documented as of this encounter Visit Diagnoses Not on filedocumented in this encounter Additional Health Concerns Infection Onset Date Last Indicated Resolved Time Rule Out COVID-19 06/22/2021 06/22/2021 06/23/2021 8:58 PM CDT Rule Out COVID-19 01/22/2022 01/22/2022 01/24/2022 1:05 PM SOCIAL MEDIA SENIOR ASSOCIATE Rule Out COVID-19 01/25/2022 01/25/2022 01/25/2022 5:21 AM SOCIAL MEDIA SENIOR ASSOCIATE Influenza 01/25/2022 01/25/2022 02/01/2022 11:4 1 PM SOCIAL MEDIA SENIOR ASSOCIATE Rule Out COVID-19 07/29/2022 07/29/2022 07/31/2022 11:17 AM CDT Rule Out COVID-19 03/23/2023 03/23/2023 03/23/2023 6:30 PM SOCIAL MEDIA SENIOR ASSOCIATE COVID-19 03/23/2023 03/23/2023 04/13/2023 11:4 0 PM SOCIAL MEDIA SENIOR ASSOCIATE Rule Out COVID-19 06/05/2023 06/05/2023 06/05/2023 5:53 PM CDT Rule Out COVID-19 11/06/2023 11/06/2023 11/06/2023 11:05 PM CDT Rule Out COVID-19 11/20/2023 11/20/2023 11/20/2023 6:43 PM CDT Rule Out COVID-19 12/27/2023 12/27/2023 12/29/2023 1:37 PM CDT Assessment Noted Time PHQ-9 Depression Total Score: 7 07/29/19 21 7:03 AM CDT documented as of this encounter Care Teams Wire Drawer Relationship Specialty [place] [address] [place] [address] PCP - General Family Practice 07/11/14 [place] [address] [place] [address] Assigned PCP 12/16/11 Kerry Bernal, INOCENCIO Personal Advocate & Liaison (PAL) 01/08/19 07/10/23 Ravi Barillas DPM [address] [facility] [address] [place] [address] Assigned Musculoskeletal Provider 03/23/20 10/30/21 Christy Campuzano PA-C [address] [place] [address] [id number] Referring Physician Family Medicine 04/22/20 Hans Cannon MD [address] [place] [address] 540502 Resident Pulmonary Disease 04/22/20 Mitra Kendall, [facility] Lead Feed Mill Manager Primary Care - CC 01/08/1901/12 Burt Jovel MD Internal Medicine 05/08/20 12/13/23 Estella Hassan, [facility] 30[address] [place], [place] 122646 Pharmacist Pharmacist 05/26/20 Reji Chavez MD [address] [place] [phone] Assigned Heart and Vascular Provider 05/18/20 10/30/21 Elaina Moreno MD [address] [place] [address] Assigned Surgical Provider 05/18/20 11/19/22 Elaina Moreno MD [facility] [place] [address] Cardiovascular & Thoracic Surgery 08/06/20 Kelsi Hassan MD [address] [place] [address] 284 [place] [address] Assigned Pulmonology Provider 06/28/21 02/05/22 John Webb MD [address] [place] [address] Cardiovascular Disease 08/25/21 John Webb MD [address] [place] [address] Cardiovascular Disease 08/25/21 Estella Hassan, [facility] 30[address] [place] [address] Assigned MTM Pharmacist 09/05/21 Nav Hughes MD [address] [place] [address] Assigned Heart and Vascular Provider 10/31/21 09/03/23 Cassandra Mendoza MD ORTHOPAEDIC SURGERY [facility][note 3][address] [address] Assigned Musculoskeletal Provider 10/31/21 08/13/22 Estella Hassan, [facility] [address] [address] Assigned MTM Pharmacist 12/09/21 Mitra Kendall, IPHONE DEVELOPER Lead Feed Mill Manager Primary Care - CC 01/26/2210/28 Lindsay Carey OD [address] [facility] [address] Ophthalmology 01/29/22 Ravi Brownlee MD [address] [place] [address] 276 [place], [place] 137165 Assigned Pulmonology Provider 02/06/22 09/03/23 Arabella Fishman MA Financial Resource Worker 02/22/22 02/23/22 Richard Kam MD [address] [place] [address] 131165 Assigned Musculoskeletal Provider 08/14/22 [facility] [address] [place] [id number] Pharmacist Pharmacist 11/22/22 01/09/23 [place] [address] BC PENA, [address] [address] Assigned Neuroscience Provider 01/01/23 Rosemarie Mcdowell, RN Market Basket Maker Diabetes Education 03/17/23 Ravi Brownlee MD [address] [place] [address] 276 [place], [place] 654985 Assigned Heart and Vascular Provider 09/04/23 01/03/24 Mitra Kendall, IPHONE DEVELOPER Lead Feed Mill Manager Primary Care - CC 12/12/23 Lizet Mann PA-C 7[address] [place], [place] 620415 Assigned Cancer Care Provider 01/04/24 Ravi Brownlee MD [address] [facility] [address] [place], [place] 411235 Assigned Pulmonology Provider 01/04/24 Nav Hughes MD [address] [facility] [address] [place] 845875 Assigned Heart and Vascular Provider 01/04/24 Manuel Ahn OD [address] [facility] [place] 619872 [employer] 01/05/24 Arabella Fishman MA Financial Resource Worker 01/06/24 Thalia Charles [facility] Pharmacist Pharmacy 01/26/24 documented as of this encounter
--- OUTSIDE RECORDS SUMMARY | 2024-01-31 20:11 | XMS_ITS | Encounter Summary ---
Author Organization [facility] Address [address] [place] [address] Care Team Providers Care Certified Court Interpreter Name Role Phone Va Glez MD Primary Care Provider Va Glez MD Unavailable Kerry Bernal RN Unavailable [phone] Ravi Barillas DPM Unavailable [phone] Christy Campuzano PA-C Unavailable [phone] aHns Cannon MD Unavailable Mitra Kendall SERVICE ATTENDANT CAFETERIA Unavailable Burt Jovel MD Unavailable Estella Hassan [facility] Unavailable Reji Chavez MD Unavailable [phone] Josh Cordero MD, Madhuri Unavailable [phone] Josh Cordero MD, Madhuri Unavailable [phone] Kelsi Hassan MD Unavailable [phone] John Webb MD Unavailable [phone] John Webb MD Unavailable Estella Hassan [facility] Unavailable Nav Hughes MD Unavailable [phone] Cassandra Mendoza MD Unavailable Estella Hassan [facility] Unavailable Mitra Kendall SERVICE ATTENDANT CAFETERIA Unavailable Lindsay Carey OD Unavailable [phone] Cedar GroveRavi bajwa MD Unavailable Arabella Fishman MA Unavailable [phone] Richard Kam MD Unavailable Marisol Patel [facility] Unavailable [phone] Gaby Vila DO Unavailable [phone] Rosemarie Mcdowell RN Unavailable [phone] Ravi Brownlee MD Unavailable Mitra Kendall SERVICE ATTENDANT CAFETERIA Unavailable Lizet Mann PA-C Unavailable Ravi Brownlee MD Unavailable Nav Hguhes MD Unavailable [phone] Manuel Ahn OD Unavailable Arabella Fishman MA Unavailable [phone] Thalia Charles [facility] Unavailable Unavailable Encounter Details Date Type Department Care Team (Late st Contact Info) Description 07/09/2020 [facility] [place] [address] [address] Estella Hassan, [facility] 30[address] [place] [address] Social History Tobacco Use Types Packs/Day Years [...] Answer Date Recorded PHQ-2 Score 0 06/05/2020 [facility] - Occupational [...] file Legal 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 MANAGER BUSINESS INTELLIGENCE Gender Identity Not on file Sexual Orientation Not on file Occupation Industry Job Start Date Job End Date Not on file Not on file Not on file Not on file COVID-19 Exposure Response Date Recorded In the last month, have you been in contact with someone who was confirmed or suspected to have Coronavirus / COVID-19? No / Unsure 07/09/2020 3:15 PM CDT documented as of this encounter Plan of Treatment Upcoming Encounters Date Type Department Care Team (Late st Contact Info) Description 02/01/2024 3:00 PM MANAGER BUSINESS INTELLIGENCE Office Visit [facility] 6341 [place] [phone] Manuel Ahn, [address] [place] [address] 02/02/2024 1:30 PM MANAGER BUSINESS INTELLIGENCE Therapy Visit [facility] [address] [facility] [address] [place] [phone] Alicja Roldan OT 909 [place] [address] 02/05/2024 8:00 PM MANAGER BUSINESS INTELLIGENCE Therapy Visit [facility] [address] [place] [address] 02/13/2024 4:30 PM MANAGER BUSINESS INTELLIGENCE Oncology Visit [facility] 909 [place] [phone] Marian Agustin, NESSA DISTANCE EDUCATION DIRECTOR [address] [facility] [address] [place], [place] [address] 03/01/2024 7:00 AM MANAGER BUSINESS INTELLIGENCE Office Visit [facility] [address] [place] [phone] Estella Hassan, [facility] 3033 [place] [address] 03/23/2024 2:00 PM MANAGER BUSINESS INTELLIGENCE Office Visit [facility] [address] [facility] [place] [address] Lizet Mann PA-C 717 [place] [address] 03/29/2024 3:30 PM MANAGER BUSINESS INTELLIGENCE Office Visit [facility] 2945 [facility] 200 [place] [phone] Hakeem Chacko MBBS 2945 [place] [address] 05/03/2024 3:00 PM MANAGER BUSINESS INTELLIGENCE Office Visit [facility] [address] [place] [address] Gaurav Valenzuela, UNDERCOVER COP [address] 741214 05/22/2024 10:30 AM CDT Office Visit [address] [phone] [facility] 3033 [place] [address] 05/22/2024 11:30 AM CDT Office Visit [address] [address] Va Glez MD [address] [place] [address] [phone] documented as of this encounter Visit Diagnoses Not on filedocumented in this encounter Additional Health Concerns Infection Onset Date Last Indicated Resolved Time Rule Out COVID-19 06/22/2021 06/22/2021 06/23/2021 8:58 PM CDT Rule Out COVID-19 01/22/2022 01/22/2022 01/24/2022 1:05 PM MANAGER BUSINESS INTELLIGENCE Rule Out COVID-19 01/25/2022 01/25/2022 01/25/2022 5:21 AM MANAGER BUSINESS INTELLIGENCE Influenza 01/25/2022 01/25/2022 02/01/2022 11:4 1 PM MANAGER BUSINESS INTELLIGENCE Rule Out COVID-19 07/29/2022 07/29/2022 07/31/2022 11:17 AM CDT Rule Out COVID-19 03/23/2023 03/23/2023 03/23/2023 6:30 PM MANAGER BUSINESS INTELLIGENCE COVID-19 03/23/2023 03/23/2023 04/13/2023 11:4 0 PM MANAGER BUSINESS INTELLIGENCE Rule Out COVID-19 06/05/2023 06/05/2023 06/05/2023 5:53 PM CDT Rule Out COVID-19 11/06/2023 11/06/2023 11/06/2023 11:05 PM CDT Rule Out COVID-19 11/20/2023 11/20/2023 11/20/2023 6:43 PM CDT Rule Out COVID-19 12/27/2023 12/27/2023 12/29/2023 1:37 PM CDT Assessment Noted Time PHQ-9 Depression Total Score: 2 06/06/19 12:47 PM CDT documented as of this encounter Care Teams Certified Court Interpreter Relationship Specialty [place] [address] [place] [address] PCP - General Family Practice 07/11/14 [place] [address] [place] [address] Assigned PCP 12/16/11 Kerry Bernal, INOCENCIO Personal Advocate & Liaison (PAL) 01/08/19 07/10/23 Ravi Barillas DPM [address] [facility] [address] [place] [address] Assigned Musculoskeletal Provider 03/23/20 10/30/21 Christy Campuzano PA-C [address] [place] [address] [id number] Referring Physician Family Medicine 04/22/20 Hans Cannon MD [address] [place] [address] 680452 Resident Pulmonary Disease 04/22/20 Mitra Kendall, [facility] Lead Neon Sign Worker Primary Care - CC 01/08/1901/12 Burt Jovel MD Internal Medicine 05/08/20 12/13/23 Estella Hassan, [facility] 30[address] [place], [place] 351116 Pharmacist Pharmacist 05/26/20 Reji Chavez MD [address] [place] [phone] Assigned Heart and Vascular Provider 05/18/20 10/30/21 Elaina Moreno MD [address] [place] [address] Assigned Surgical Provider 05/18/20 11/19/22 Elaina Moreno MD 909 [place] [address] Cardiovascular & Thoracic Surgery 08/06/20 Kelsi Hassan MD [address] [place] [address] 284 [place] [address] Assigned Pulmonology Provider 06/28/21 02/05/22 John Webb MD [address] [place] [address] Cardiovascular Disease 08/25/21 John Webb MD [address] [place] [address] Cardiovascular Disease 08/25/21 Estella Hassan, [facility] 30[address] [place] [address] Assigned MTM Pharmacist 09/05/21 Nav Hughes MD [address] [place] [address] Assigned Heart and Vascular Provider 10/31/21 09/03/23 Cassandra Mendoza MD ORTHOPAEDIC SURGERY [address] [address] Assigned Musculoskeletal Provider 10/31/21 08/13/22 Estella Hassan, [facility] [address] [place] [address] Assigned MTM Pharmacist 12/09/21 Mitra Kendall, [facility] Lead Neon Sign Worker Primary Care - CC 01/26/2210/28 Lindsay Carey OD [address] [facility] [address] Ophthalmology 01/29/22 Ravi Brownlee MD [address] [place] [address] 276 [place], [place] 681525 Assigned Pulmonology Provider 02/06/22 09/03/23 Arabella Fishman MA Financial Resource Worker 02/22/22 02/23/22 Richard Kam MD [address] [place] [address] 814975 Assigned Musculoskeletal Provider 08/14/22 [facility] [address] [facility] [address] [place] [phone] Pharmacist Pharmacist 11/22/22 01/09/23 [place] [address] [address] Assigned Neuroscience Provider 01/01/23 Rosemarie Mcdowell, RN Woodworking Machine Feeder Diabetes Education 03/17/23 Ravi Brownlee MD [address] [place] [address] 276 [place], [place] 886275 Assigned Heart and Vascular Provider 09/04/23 01/03/24 Mitra Kendall, SERVICE ATTENDANT CAFETERIA Lead Neon Sign Worker Primary Care - CC 12/12/23 Lizet Mann PA-C 717 [place], [place] 303765 Assigned Cancer Care Provider 01/04/24 Ravi Brownlee MD 420 [facility] [address] [place], [place] 9[address]85 Assigned Pulmonology Provider 01/04/24 Nav Hughes MD [address] [facility] [address] [place] 18[address]35 Assigned Heart and Vascular Provider 01/04/24 Manuel Ahn OD [address] [facility] [place] 201092 [employer] Tungsten Arc 01/05/24 Arabella Fishman MA Financial Resource Worker 01/06/24 Thalia Charles Anabel Pharmacist Pharmacy 01/26/24 documented as of this encounter
--- OUTSIDE RECORDS SUMMARY | 2024-01-31 20:11 | XMS_ITS | Encounter Summary ---
Author Organization [facility] Address [address] [place] [address] Care Team Providers Care Correction Worker Name Role Phone Va Glez MD Primary Care Provider Va Glez MD Unavailable Kerry Bernal RN Unavailable [phone] Ravi Barillas DPM Unavailable [phone] Christy Campuzano PA-C Unavailable Hans Cannon MD Unavailable [phone] Mitra Kendall BARREL BUNG REMOVER AND DUMPER Unavailable Burt Jovel MD Unavailable [phone] Estella Hassan [facility] Unavailable Reji Chavez MD Unavailable [phone] Josh Cordero MD, Madhuri Unavailable [phone] Josh Cordero MD, Madhuri Unavailable [phone] Kelsi Hassan MD Unavailable [phone] John Webb MD Unavailable John Webb MD Unavailable Estella Hassan [facility] Unavailable Nav Hughes MD Unavailable [phone] Cassandra Mendoza MD Unavailable Estella Hassan H Unavailable Mitra Kendall BARREL BUNG REMOVER AND DUMPER Unavailable Aurelio Lindsay Bartone OD Unavailable Ravi Brownlee MD Unavailable [phone] Arabella Fishman MA Unavailable [phone] Richard Kam MD Unavailable Marisol Patel [facility] Unavailable Gaby Vila DO Unavailable Rosemarie Mcdowell RN Unavailable Ravi Brownlee MD Unavailable [phone] Mitra Kendall BARREL BUNG REMOVER AND DUMPER Unavailable [phone] Lizet Mann PA-C Unavailable Ravi Brownlee MD Unavailable [phone] Nav Hughes MD Unavailable [phone] Manuel Ahn OD Unavailable Arabella Fishman MA Unavailable [phone] Thalia Charles [facility] Unavailable Unavailable Encounter Details Date Type Department Care Team (Late st Contact Info) Description 07/18/2020 [facility] [address] [address] Hans Cannon MD [address] [place] [address] Social History Tobacco Use Types Packs/Day Years [...] Answer Date Recorded PHQ-2 Score 0 06/05/2020 [facility] Occupat ional Health - [...] on file Legal 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 COMMUNICATIONS PROJECT MANAGER Gender Identity Not on file Sexual Orientation Not on file Occupation Industry Job Start Date Job End Date Not on file Not on file Not on file Not on file COVID-19 Exposure Response Date Recorded In the last month, have you been in contact with someone who was confirmed or suspected to have Coronavirus / COVID-19? No / Unsure 07/21/2020 8:06 AM CDT documented as of this encounter Plan of Treatment Upcoming Encounters Date Type Department Care Team (Late st Contact Info) Description 02/01/2024 3:00 PM COMMUNICATIONS PROJECT MANAGER Office Visit [facility] [address] [place] [phone] Manuel Ahn, [address] [place] [address] 02/02/2024 1:30 PM COMMUNICATIONS PROJECT MANAGER Therapy Visit [facility] [address] [facility] [address] [place] [phone] Alicja Roldan, OT 909 [place] [address] 02/05/2024 8:00 PM COMMUNICATIONS PROJECT MANAGER Therapy Visit [facility] [address] [place] [phone] 02/13/2024 4:30 PM COMMUNICATIONS PROJECT MANAGER Oncology Visit [facility] 909 [place] [phone] Marian Agustin APRN BORE MILL OPERATOR [address] [facility] [address] [place], [place] 301915 03/01/2024 7:00 AM COMMUNICATIONS PROJECT MANAGER Office Visit [facility] [address] [place] [phone] Estella Hassan, [facility] [address] [place] [address] 03/23/2024 2:00 PM COMMUNICATIONS PROJECT MANAGER Office Visit [facility] [address] [place] [address] Lizet Mann PA-C 717 [place] [address] 03/29/2024 3:30 PM COMMUNICATIONS PROJECT MANAGER Office Visit [facility] 2945 [facility] 200 [place] [phone] Hakeem Chacko MBBS 2945 [place] [address] 05/03/2024 3:00 PM COMMUNICATIONS PROJECT MANAGER Office Visit [facility] [address] [place] [phone] Gaurav Valenzuela, ENTERPRISE APPLICATION ADMINISTRATOR [address] 928734 05/22/2024 10:30 AM CDT Office Visit [address] [phone] Estella Hassan, [facility] 30[address] [place] [address] 05/22/2024 11:30 AM CDT Office Visit [address] [address] Va Glez MD [address] [place] [address] [phone] documented as of this encounter Visit Diagnoses Not on filedocumented in this encounter Additional Health Concerns Infection Onset Date Last Indicated Resolved Time Rule Out COVID-19 06/22/2021 06/22/2021 06/23/2021 8:58 PM CDT Rule Out COVID-19 01/22/2022 01/22/2022 01/24/2022 1:05 PM COMMUNICATIONS PROJECT MANAGER Rule Out COVID-19 01/25/2022 01/25/2022 01/25/2022 5:21 AM COMMUNICATIONS PROJECT MANAGER Influenza 01/25/2022 01/25/2022 02/01/2022 11:4 1 PM COMMUNICATIONS PROJECT MANAGER Rule Out COVID-19 07/29/2022 07/29/2022 07/31/2022 11:17 AM CDT Rule Out COVID-19 03/23/2023 03/23/2023 03/23/2023 6:30 PM COMMUNICATIONS PROJECT MANAGER COVID-19 03/23/2023 03/23/2023 04/13/2023 11:4 0 PM COMMUNICATIONS PROJECT MANAGER Rule Out COVID-19 06/05/2023 06/05/2023 06/05/2023 5:53 PM CDT Rule Out COVID-19 11/06/2023 11/06/2023 11/06/2023 11:05 PM CDT Rule Out COVID-19 11/20/2023 11/20/2023 11/20/2023 6:43 PM CDT Rule Out COVID-19 12/27/2023 12/27/2023 12/29/2023 1:37 PM CDT Assessment Noted Time PHQ-9 Depression Total Score: 2 06/06/19 21 12:47 PM CDT documented as of this encounter Care Teams Correction Worker Relationship Specialty [place] [address] [place] [address] PCP - General Family Practice 07/11/14 [place] [address] [place] [address] Assigned PCP 12/16/11 Kerry Bernal RN Personal Advocate & Liaison (PAL) 01/08/19 07/10/23 Ravi Barillas DPM [address] [facility] 300 [place] [address] Assigned Musculoskeletal Provider 03/23/20 10/30/21 Christy Campuzano PA-C [address] [place] [address] 575512 Referring Physician Family Medicine 04/22/20 Hans Cannon MD [address] [place] [address] [id number] Resident Pulmonary Disease 04/22/20 Mitra Kendall, [facility] Lead Composition Floor Layer Primary Care - CC 01/08/1901/12 Burt Jovel MD Internal Medicine 05/08/20 12/13/23 Estella Hassan, [facility] [address] [place], [place] 747086 Pharmacist Pharmacist 05/26/20 Reji Chavez MD [address] [place] [phone] Assigned Heart and Vascular Provider 05/18/20 10/30/21 Elaina Moreno MD [address] [place] [address] Assigned Surgical Provider 05/18/20 11/19/22 Elaina Moreno MD 909 [place] [address] Cardiovascular & Thoracic Surgery 08/06/20 Kelsi Hassan MD 420 [facility] 284 [place] [address] Assigned Pulmonology Provider 06/28/21 02/05/22 John Webb MD [address] [place] 695745 Cardiovascular Disease 08/25/21 John Webb MD [address] [place] [address] Cardiovascular Disease 08/25/21 Estella Hassan, [facility] 30[address] [place] [address] Assigned MTM Pharmacist 09/05/21 Nav Hughes MD [address] [place] [address] Assigned Heart and Vascular Provider 10/31/21 09/03/23 Cassandra Mendoza MD ORTHOPAEDIC SURGERY [facility] [address] [address] Assigned Musculoskeletal Provider 10/31/21 08/13/22 Estella Hassan, [facility] [address] [place] [address] Assigned MTM Pharmacist 12/09/21 Mitra Kendall, [facility] Lead Composition Floor Layer Primary Care - CC 01/26/2210/28 Lindsay Carey OD [address] [facility] [place] [address] Ophthalmology 01/29/22 Ravi Brownlee MD [address] [place] [address] 276 [place] [address] Assigned Pulmonology Provider 02/06/22 09/03/23 Arabella Fishman MA Financial Resource Worker 02/22/22 02/23/22 Richard Kam MD [address] [place] [address] 035645 Assigned Musculoskeletal Provider 08/14/22 [facility] 1440 [facility] SHANK[place] [id number] Pharmacist Pharmacist 11/22/22 01/09/23 [place] [address] [address] Assigned Neuroscience Provider 01/01/23 Rosemarie Mcdowell, RN Ham Marker Diabetes Education 03/17/23 Ravi Brownlee MD [address] [place] [address] 276 [place], [place] 820885 Assigned Heart and Vascular Provider 09/04/23 01/03/24 Mitra Kendall LSW Lead Composition Floor Layer Primary Care - CC 12/12/23 Lizet Mann PA-C 717 [place] [address] Assigned Cancer Care Provider 01/04/24 Ravi Brownlee MD 420 [facility] 276 [place], [place] 828405 Assigned Pulmonology Provider 01/04/24 Nav Hughes MD 6405 [facility]340 [place] 263175 Assigned Heart and Vascular Provider 01/04/24 Manuel Ahn OD 6341 [facility] [place]AR [place]DS [address] Net Developer Software Engineer C 01/05/24 Arabella Fishman MA Financial Resource Worker 01/06/24 Thalia Charles [facility] Pharmacist Pharmacy 01/26/24 documented as of this encounter
--- OUTSIDE RECORDS SUMMARY | 2024-01-31 20:11 | XMS_ITS | Encounter Summary ---
Author Organization [facility] Address [address] [place] [address] Care Team Providers Care Clinical Informatics Spec Name Role Phone Va Glez MD Primary Care Provider Va Glez MD Unavailable Kerry Bernal RN Unavailable [phone] Ravi Barillas DPM Unavailable [phone] Christy Campuzano PA-C Unavailable Hans Cannon MD Unavailable Mitra Kendall CENTER ADMINISTRATOR Unavailable Burt Jovel MD Unavailable [phone] Estella Hassan [facility] Unavailable [phone] Reji Chavez MD Unavailable Josh Cordero MD, Madhuri Unavailable [phone] Josh Cordero MD, Madhuri Unavailable [phone] Kelsi Hassan MD Unavailable [phone] John Webb MD Unavailable John Webb MD Unavailable [phone] Estella Hassan [facility] Unavailable Nav Hughes MD Unavailable [phone] Cassandra Mendoza MD Unavailable Estella Hassan H Unavailable Mitra Kendall CENTER ADMINISTRATOR Unavailable Aurelio Lindsay Bartone OD Unavailable Ravi Brownlee MD Unavailable Arabella Fishman MA Unavailable [phone] Richard Kam MD Unavailable Marisol Patel [facility] Unavailable Gaby Vila DO Unavailable Rosemarie Mcdowell RN Unavailable Ravi Brownlee MD Unavailable [phone] Mitra Kendall CENTER ADMINISTRATOR Unavailable Lizet Mann PA-C Unavailable Ravi Brownlee MD Unavailable [phone] Nav Hughes MD Unavailable [phone] Manuel Ahn OD Unavailable [phone] Arabella Fishman MA Unavailable [phone] Thalia Charles [facility] Unavailable Unavailable Reason for Visit * Reason Onset Date Comments Call Back 07/15/2020 Questions Encounter Details Date Type Department Care Team (Late st Contact Info) Description 07/15/2020 Telephone [facility] [address] 5th [place] [address] Unknown Call Back (Questions ) Social History Tobacco Use Types Packs/Day [...] and Family Not on file 05/31/2019 Attends Spiritism Services Not on file 05/30 Active Member [...] Answer Date Recorded PHQ-2 Score 0 06/05/2020 [facility] of Occupat ional Health - Occupational Stress [...] on file Legal 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 CARDIOPULMONARY TECHNOLOGIST CHIEF Gender Identity Not on file Sexual Orientation [...] PM CDT documented as of this encounter Miscellaneous Notes * Telephone Encounter - Zo Contreras RN - 07/15/2020 3:26 PM CDTSummary: Return call to patient Mary Oneal [facility], pharmacist for PAC to return call to patient. Patient is aware. * Telephone Encounter - Lluvia Rhodes - 07/15/2020 2:47 PM CDT [facility] Phone Message May a detailed message be left on voicemail: yes Reason for Call: Other: Per pt states he was speaking with a male in the PAC clinic about his medication and doesnt remember the person name. Per pt says his phone was a 5% and when the phone was cutoff they were about to talk about medications. Per pt would jorge alberto if whoever called him from the PAC to call him again and finish the conversation. Please call pt back michael. Thank you. Action Taken: Message routed to: [facility] PAC Travel Screening: Not Applicable documented in this encounter Plan of Treatment Upcoming Encounters Date Type Department Care Team (Late st Contact Info) Description 02/01/2024 3:00 PM CARDIOPULMONARY TECHNOLOGIST CHIEF Office Visit [facility] [address] [place] [address] [place] [phone] Manuel Ahn, [address] [facility] [place]DS [address] 02/02/2024 1:30 PM CARDIOPULMONARY TECHNOLOGIST CHIEF Therapy Visit [facility] [address] [facility] [address] [place] [phone] Alicja Roldan, BETY 909 [place] [address] 02/05/2024 8:00 PM CARDIOPULMONARY TECHNOLOGIST CHIEF Therapy Visit [facility] [place] 6363 [facility] 103 [place] [phone] 02/13/2024 4:30 PM CARDIOPULMONARY TECHNOLOGIST CHIEF Oncology Visit [facility] 909 [place] [phone] Marian Agustin, DAIRY PROCESSING EQUIPMENT OPERATOR [facility] 420 [facility] 207 [place] [address] 03/01/2024 7:00 AM CARDIOPULMONARY TECHNOLOGIST CHIEF Office Visit [facility] [address] [place] [phone] Estella Hassan, [facility] 3033 [place] [address] 03/23/2024 2:00 PM CARDIOPULMONARY TECHNOLOGIST CHIEF Office Visit [facility] [address] [place] [address] [place] [phone] Lizet Mann PA-C 717 [place] [address] 03/29/2024 3:30 PM CARDIOPULMONARY TECHNOLOGIST CHIEF Office Visit [facility] 2945 [facility] 200 [place] [phone] Hakeem Chacko MBBS 2945 [place] [address] 05/03/2024 3:00 PM CARDIOPULMONARY TECHNOLOGIST CHIEF Office Visit [facility] Sleep [address] [phone] Gaurav Valenzuela, DAIRY PROCESSING EQUIPMENT OPERATOR [facility] [address] [place] [address] 05/22/2024 10:30 AM CDT Office Visit [address] [phone] Estella Hassan, [facility] 3033 [place] [address] 05/22/2024 11:30 AM CDT Office Visit [address] [address] [place] Glez [place] [id number] [place] [address] [phone] documented as of this encounter Visit Diagnoses Not on filedocumented in this encounter Additional Health Concerns Infection Onset Date Last Indicated Resolved Time Rule Out COVID-19 06/22/2021 06/22/2021 06/23/2021 8:58 PM CDT Rule Out COVID-19 01/22/2022 01/22/2022 01/24/2022 1:05 PM CARDIOPULMONARY TECHNOLOGIST CHIEF Rule Out COVID-19 01/25/2022 01/25/2022 01/25/2022 5:21 AM CARDIOPULMONARY TECHNOLOGIST CHIEF Influenza 01/25/2022 01/25/2022 02/01/2022 11:4 1 PM CARDIOPULMONARY TECHNOLOGIST CHIEF Rule Out COVID-19 07/29/2022 07/29/2022 07/31/2022 11:17 AM CDT Rule Out COVID-19 03/23/2023 03/23/2023 03/23/2023 6:30 PM CARDIOPULMONARY TECHNOLOGIST CHIEF COVID-19 03/23/2023 03/23/2023 04/13/2023 11:4 0 PM CARDIOPULMONARY TECHNOLOGIST CHIEF Rule Out COVID-19 06/05/2023 06/05/2023 06/05/2023 5:53 PM CDT Rule Out COVID-19 11/06/2023 11/06/2023 11/06/2023 11:05 PM CDT Rule Out COVID-19 11/20/2023 11/20/2023 11/20/2023 6:43 PM CDT Rule Out COVID-19 12/27/2023 12/27/2023 12/29/2023 1:37 PM CDT Assessment Noted Time PHQ-9 Depression Total Score: 2 06/06/19 21 12:47 PM CDT documented as of this encounter Care Teams Clinical Informatics Spec Relationship Specialty [place] [address] [place] [address] PCP - General Family Practice 07/11/14 [place] [address] [place] [address] Assigned PCP 12/16/11 Kerry Bernal RN Personal Advocate & Liaison (PAL) 01/08/19 07/10/23 Ravi Barillas DPM [address] [facility] [address] [place] [address] Assigned Musculoskeletal Provider 03/23/20 10/30/21 Christy Campuzano PA-C [address] [place] [address] 543092 Referring Physician Family Medicine 04/22/20 Hans Cannon MD [address] [place] [address] 520252 Resident Pulmonary Disease 04/22/20 Mitra Kendall, CENTER ADMINISTRATOR Lead Golf Ball Molder Primary Care - CC 01/08/1901/12 Burt Jovel MD Internal Medicine 05/08/20 12/13/23 Estella Hassan, [facility] [address] [place] [address] Pharmacist Pharmacist 05/26/20 Reji Chavez MD [address] [place] [phone] Assigned Heart and Vascular Provider 05/18/20 10/30/21 Elaina Moreno MD [address] [place] [address] 236075 Assigned Surgical Provider 05/18/20 11/19/22 Elaina Moreno MD [address] [place] [address] 032835 Cardiovascular & Thoracic Surgery 08/06/20 Kelsi Hassan MD [address] [place] [address] 284 [place], [place] 805515 Assigned Pulmonology Provider 06/28/21 02/05/22 John Webb MD [address] [place] [id number] Cardiovascular Disease 08/25/21 John Webb MD [address] [place] [place] 988755 Cardiovascular Disease 08/25/21 Estella Hassan, [facility] [address] [place] [address] Assigned MTM Pharmacist 09/05/21 Nav Hughes MD [address] [place] [address] Assigned Heart and Vascular Provider 10/31/21 09/03/23 Cassandra Mendoza MD ORTHOPAEDIC SURGERY [address] [place] [address] Assigned Musculoskeletal Provider 10/31/21 08/13/22 Estella Hassan, [facility] 30[address] [place] [address] Assigned MTM Pharmacist 12/09/21 Mitra Kendall, [facility] Lead Golf Ball Molder Primary Care - CC 01/26/2210/28 Lindsay Carey OD [address] [place] [address] [place] [address] Ophthalmology 01/29/22 Ravi Brownlee MD [address] [place] [address] Assigned Pulmonology Provider 02/06/22 09/03/23 Arabella Fishman MA Financial Resource Worker 02/22/22 02/23/22 Richard Kam MD [address] [place] [address] Assigned Musculoskeletal Provider 08/14/22 Marisol Patel, [facility] [address] [place] [phone] Pharmacist Pharmacist 11/22/22 01/09/23 [place] [address] [facility] [address] [address] Assigned Neuroscience Provider 01/01/23 Rosemarie Mcdowell, RN Business Services Specialist Sales Diabetes Education 03/17/23 Ravi Brownlee MD [address] [place] [address] Assigned Heart and Vascular Provider 09/04/23 01/03/24 Mitra Kendall, [facility] Lead Golf Ball Molder Primary Care - CC 12/12/23 Lizet Mann PA-C 7 [place], [place] 956635 Assigned Cancer Care Provider 01/04/24 Ravi Brownlee MD [address] [place] [address] 256115 Assigned Pulmonology Provider 01/04/24 Nav Hughes MD 6405 [facility] GEOVANNY Cheng34[place]AR [place] 834815 Assigned Heart and Vascular Provider 01/04/24 Manuel Ahn OD [address] [place] [place] 553932 Sales And Service Consultant 01/05/24 Arabella Fishman MA Financial Resource Worker 01/06/24 Thalia Charles [facility] Pharmacist Pharmacy 01/26/24 documented as of this encounter
--- OUTSIDE RECORDS SUMMARY | 2024-01-31 20:11 | XMS_ITS | Encounter Summary ---
Author Organization [facility] Address [address] [place] [address] Care Team Providers Care Educational Administration Teacher Name Role Phone Va Glez MD Primary Care Provider Va Glez MD Unavailable Kerry Bernal RN Unavailable [phone] Ravi Barillas DPM Unavailable [phone] Christy Campuzano PA-C Unavailable Hans Cannon MD Unavailable [phone] Mitra Kendall TURBO GENERATOR OILER Unavailable Burt Jovel MD Unavailable [phone] Estella Hassan [facility] Unavailable Reji Chavez MD Unavailable [phone] Josh Cordero MD, Madhuri Unavailable [phone] Josh Cordero MD, Madhuri Unavailable [phone] Kelsi Hassan MD Unavailable [phone] John Webb MD Unavailable [phone] John Webb MD Unavailable Estella Hassan [facility] Unavailable Nav Hughes MD Unavailable [phone] Cassandra Mendoza MD Unavailable Estella Hassan H Unavailable Mitra Kendall TURBO GENERATOR OILER Unavailable Aurelio Lindsay Kenzie OD Unavailable Ravi Brownlee MD Unavailable [phone] Arabella Fishman MA Unavailable [phone] Richard Kam MD Unavailable Marisol Patel [facility] Unavailable Gaby Vila DO Unavailable [phone] Rosemarie Mcdowell RN Unavailable [phone] Ravi Brownlee MD Unavailable [phone] Mitra Kendall TURBO GENERATOR OILER Unavailable Lizet Mann PA-C Unavailable Ravi Brownlee MD Unavailable [phone] Nav Hughes MD Unavailable [phone] Manuel Ahn OD Unavailable [phone] Arabella Fishman MA Unavailable [phone] Thalia Charles [facility] Unavailable Unavailable Encounter Details Date Type Department Care Team (Late st Contact Info) Description 07/10/2020 [facility] [address] [place] [address] Elaina Moreno MD [address] [place] [address] Social History Tobacco Use Types Packs/Day [...] and Family Not on file 05/31/2019 Attends Yazidism Services Not on file 05/30 Active Member [...] Answer Date Recorded PHQ-2 Score 0 06/05/2020 [facility] of Occupat ional Health - Occupational Stress [...] on file Legal 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 SAFETY NET MAKER Gender Identity Not on file Sexual [...] st Contact Info) Description 02/01/2024 3:00 PM SAFETY NET MAKER Office Visit [facility] [address] [place] [phone] Manuel Ahn, [address] [place] [address] 02/02/2024 1:30 PM SAFETY NET MAKER Therapy Visit [facility] [address] [facility] [address] [place] [phone] Alicja Roldan OT 909 [place] [address] 02/05/2024 8:00 PM SAFETY NET MAKER Therapy Visit [facility] [address] [place] [phone] 02/13/2024 4:30 PM SAFETY NET MAKER Oncology Visit [facility] 9[address] [place] [phone] Marian Agustin, NESSA TRACTION POWER ENGINEER [address] [facility] 207 [place], [place] [address] 03/01/2024 7:00 AM SAFETY NET MAKER Office [facility] [address] [place] [phone] Estella Hassan, [facility] [address] [place] [address] 03/23/2024 2:00 PM SAFETY NET MAKER Office Visit [facility] [address] [place] [address] Lizet Mann PA-C 717 [place] [address] 03/29/2024 3:30 PM SAFETY NET MAKER Office Visit [facility] 2945 [facility] 200 [place] [phone] Hakeem Chacko MBBS 2945 [place] [address] 05/03/2024 3:00 PM SAFETY NET MAKER Office Visit [facility] [address] [place] [phone] Gaurav Valenzuela, ARMORING MACHINE OPERATOR [facility] [address] [place] [address] 911584 05/22/2024 10:30 AM CDT Office Visit [address] [phone] Estella Hassan, [facility] [address] [place] [address] 05/22/2024 11:30 AM CDT Office Visit [address] [address] Va Glez MD [address] [place] [address] [phone] documented as of this encounter Visit Diagnoses Not on filedocumented in this encounter Additional Health Concerns Infection Onset Date Last Indicated Resolved Time Rule Out COVID-19 06/22/2021 06/22/2021 06/23/2021 8:58 PM CDT Rule Out COVID-19 01/22/2022 01/22/2022 01/24/2022 1:05 PM SAFETY NET MAKER Rule Out COVID-19 01/25/2022 01/25/2022 01/25/2022 5:21 AM SAFETY NET MAKER Influenza 01/25/2022 01/25/2022 02/01/2022 11:4 1 PM SAFETY NET MAKER Rule Out COVID-19 07/29/2022 07/29/2022 07/31/2022 11:17 AM CDT Rule Out COVID-19 03/23/2023 03/23/2023 03/23/2023 6:30 PM SAFETY NET MAKER COVID-19 03/23/2023 03/23/2023 04/13/2023 11:4 0 PM SAFETY NET MAKER Rule Out COVID-19 06/05/2023 06/05/2023 06/05/2023 5:53 PM CDT Rule Out COVID-19 11/06/2023 11/06/2023 11/06/2023 11:05 PM CDT Rule Out COVID-19 11/20/2023 11/20/2023 11/20/2023 6:43 PM CDT Rule Out COVID-19 12/27/2023 12/27/2023 12/29/2023 1:37 PM CDT Assessment Noted Time PHQ-9 Depression Total Score: 2 06/06/19 21 12:47 PM CDT documented as of this encounter Care Teams Educational Administration Teacher Relationship Specialty [place] [address] [place] [address] PCP - General Family Practice 07/11/14 [place] [address] [place] [address] Assigned PCP 12/16/11 Kerry Bernal RN Personal Advocate & Liaison (PAL) 01/08/19 07/10/23 Ravi Barillas DPM [address] [facility] [address] [place] [address] Assigned Musculoskeletal Provider 03/23/20 10/30/21 Christy Campuzano PA-C [address] [place] [address] [phone] Referring Physician Family Medicine 04/22/20 Hans Cannon MD [address] [place] [address] [id number] Resident Pulmonary Disease 04/22/20 Mitra Kendall, [facility] Lead Maintenance Welder Primary Care - CC 01/08/1901/12 Burt Jovel MD Internal Medicine 05/08/20 12/13/23 Estella Hassan, [facility] [address] [place], [place] 808936 Pharmacist Pharmacist 05/26/20 Reji Chavez MD [address] [place] [phone] Assigned Heart and Vascular Provider 05/18/20 10/30/21 Elaina Moreno MD [address] [place] [address] Assigned Surgical Provider 05/18/20 11/19/22 Elaina Moreno MD 909 [place] [address] Cardiovascular & Thoracic Surgery 08/06/20 Kelsi Hassan MD [address] [place] [address] 284 [place] [address] Assigned Pulmonology Provider 06/28/21 02/05/22 John Webb MD [address] [place] [address] Cardiovascular Disease 08/25/21 John Webb MD [address] [place] [address] Cardiovascular Disease 08/25/21 Estella Hassan, [facility] [address] [place] [address] Assigned MTM Pharmacist 09/05/21 Nav Hughes MD [address] [place] [address] Assigned Heart and Vascular Provider 10/31/21 09/03/23 Cassandra Mendoza MD ORTHOPAEDIC SURGERY [address] [address] Assigned Musculoskeletal Provider 10/31/21 08/13/22 Estella Hassan, [facility] [address] [place] [address] Assigned MTM Pharmacist 12/09/21 Mitra Kendall, [facility] Lead Maintenance Welder Primary Care - CC 01/26/2210/28 Lindsay Carey OD [address] [facility] [place] [address] Ophthalmology 01/29/22 Ravi Brownlee MD [address] [place] [address] 276 [place], [place] 049305 Assigned Pulmonology Provider 02/06/22 09/03/23 Arabella Fishman MA Financial Resource Worker 02/22/22 02/23/22 Richard Kam MD [address] [place] [address] 290995 Assigned Musculoskeletal Provider 08/14/22 [facility] [address] [facility] [address] [place] [phone] Pharmacist Pharmacist 11/22/22 01/09/23 [place] [address] [address] Assigned Neuroscience Provider 01/01/23 Rosemarie Mcdowell, RN Quality Assurance Specialist Diabetes Education 03/17/23 Ravi Brownlee MD [address] [place] [address] 276 [place], [place] 805275 Assigned Heart and Vascular Provider 09/04/23 01/03/24 Mitra Kendall, [facility] Lead Maintenance Welder Primary Care - CC 12/12/23 Lizet Mann PA-C 7[address] [place] [address] Assigned Cancer Care Provider 01/04/24 Ravi Brownlee MD 420 [facility] [address] [place], [place] 0[address]85 Assigned Pulmonology Provider 01/04/24 Nav Hughes MD 6405 [facility] SHANKAR HAYES [id number] Assigned Heart and Vascular Provider 01/04/24 Manuel Ahn OD [address] [facility] SHANKAR RICHARDS [id number] Barrel Rifler Button 01/05/24 Arabella Fishman MA Financial Resource Worker 01/06/24 Thalia Charles [facility] Pharmacist Pharmacy 01/26/24 documented as of this encounter
--- OUTSIDE RECORDS SUMMARY | 2024-01-31 20:11 | XMS_ITS | Encounter Summary ---
Author Organization [facility] Address [address] [place] [address] Care Team Providers Care [employer] Professor Name Role Phone Va Glez MD Primary Care Provider Va Glez MD Unavailable Kerry Bernal RN Unavailable [phone] Ravi Barillas DPM Unavailable [phone] Christy Campuzano PA-C Unavailable Hans Cannon MD Unavailable Mitra Kendall INDUSTRIAL ORGANIZATIONAL PSYCHOLOGIST Unavailable [phone] Burt Jovel MD Unavailable Estella Hassan [facility] Unavailable [phone] Reji Chavez MD Unavailable Josh Cordero MD, Madhuri Unavailable [phone] Josh Cordero MD, Madhuri Unavailable [phone] Kelsi Hassan MD Unavailable [phone] John Webb MD Unavailable [phone] John Webb MD Unavailable Estella Hassan [facility] Unavailable [phone] Nav Hughes MD Unavailable [phone] Cassandra Mendoza MD Unavailable Estella Hassan H Unavailable Mitra Kendall INDUSTRIAL ORGANIZATIONAL PSYCHOLOGIST Unavailable Aurelio Lindsay Kenzie OD Unavailable Eau ClaireRavi bajwa MD Unavailable [phone] Arabella Fishman MA Unavailable [phone] Richard Kam MD Unavailable Marisol Patel [facility] Unavailable Gaby Vila DO Unavailable Rosemarie Mcdowell RN Unavailable Ravi Brownlee MD Unavailable Mitra Kendall INDUSTRIAL ORGANIZATIONAL PSYCHOLOGIST Unavailable Lizet Mann PA-C Unavailable Ravi Brownlee MD Unavailable Nav Hughes MD Unavailable [phone] Manuel Ahn OD Unavailable Arabella Fishman MA Unavailable [phone] Thalia Charles [facility] Unavailable Unavailable Encounter Details Date Type Department Care Team (Late st Contact Info) Description 07/26/2020 [facility] Medical [facility] [address] [place] [phone] [place] [address] [place] [address] Social History Tobacco Use Types Packs/Day [...] and Family Not on file 05/31/2019 Attends Amish Services Not on file 05/30 Active Member [...] Answer Date Recorded PHQ-2 Score 2 07/28/2020 [facility] of Occupat ional Health - Occupational [...] on file Legal 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 SPECIALIST EMPLOYEE LABOR RELATIONS Gender Identity Not on file Sexual Orientation [...] st Contact Info) Description 02/01/2024 3:00 PM SPECIALIST EMPLOYEE LABOR RELATIONS Office Visit [facility] [address] [place] [phone] Manuel Ahn, [address] [place] [address] 02/02/2024 1:30 PM SPECIALIST EMPLOYEE LABOR RELATIONS Therapy Visit [facility] [address] [facility] [address] [place] [phone] Alicja Roldan OT 909 [place] [address] 02/05/2024 8:00 PM SPECIALIST EMPLOYEE LABOR RELATIONS Therapy Visit [facility] Centers [address] [place] [phone] 02/13/2024 4:30 PM SPECIALIST EMPLOYEE LABOR RELATIONS Oncology Visit [facility] 909 [place] [phone] Marian Agustin, PRODUCT INTRODUCTION MANAGER NUCLEAR CRITICALITY SAFETY ENGINEER [address] [facility] 207 [place], [place] 346755 03/01/2024 7:00 AM SPECIALIST EMPLOYEE LABOR RELATIONS Office Visit [facility] [address] [place] [phone] Estella Hassan, [facility] 3033 [place] [address] 03/23/2024 2:00 PM SPECIALIST EMPLOYEE LABOR RELATIONS Office Visit [facility] [address] [place] [address] Lizet Mann PA-C 717 [place] [address] 03/29/2024 3:30 PM SPECIALIST EMPLOYEE LABOR RELATIONS Office Visit [facility] 2945 [facility] 200 [place] [phone] Hakeem Chacko MBBS 2945 [place] [address] 05/03/2024 3:00 PM SPECIALIST EMPLOYEE LABOR RELATIONS Office Visit [facility] [address] [place] [phone] Gaurav Valenzuela, PRODUCT INTRODUCTION MANAGER [facility] [address] [place] [address] 05/22/2024 10:30 AM CDT Office Visit [address] [phone] Estella Hassan, [facility] [address] [place] [address] 05/22/2024 11:30 AM CDT Office Visit [address] [address] [place] [address] [place], [place] [phone] documented as of this encounter Visit Diagnoses Not on filedocumented in this encounter Additional Health Concerns Infection Onset Date Last Indicated Resolved Time Rule Out COVID-19 06/22/2021 06/22/2021 06/23/2021 8:58 PM CDT Rule Out COVID-19 01/22/2022 01/22/2022 01/24/2022 1:05 PM SPECIALIST EMPLOYEE LABOR RELATIONS Rule Out COVID-19 01/25/2022 01/25/2022 01/25/2022 5:21 AM SPECIALIST EMPLOYEE LABOR RELATIONS Influenza 01/25/2022 01/25/2022 02/01/2022 11:4 1 PM SPECIALIST EMPLOYEE LABOR RELATIONS Rule Out COVID-19 07/29/2022 07/29/2022 07/31/2022 11:17 AM CDT Rule Out COVID-19 03/23/2023 03/23/2023 03/23/2023 6:30 PM SPECIALIST EMPLOYEE LABOR RELATIONS COVID-19 03/23/2023 03/23/2023 04/13/2023 11:4 0 PM SPECIALIST EMPLOYEE LABOR RELATIONS Rule Out COVID-19 06/05/2023 06/05/2023 06/05/2023 5:53 PM CDT Rule Out COVID-19 11/06/2023 11/06/2023 11/06/2023 11:05 PM CDT Rule Out COVID-19 11/20/2023 11/20/2023 11/20/2023 6:43 PM CDT Rule Out COVID-19 12/27/2023 12/27/2023 12/29/2023 1:37 PM CDT Assessment Noted Time PHQ-9 Depression Total Score: 7 07/29/19 21 7:03 AM CDT documented as of this encounter Care Teams [employer] Professor Relationship Specialty [place] [address] [place] [address] PCP - General Family Practice 07/11/14 [place] [address] [place] [address] Assigned PCP 12/16/11 Kerry Bernal, IN[employer]ENCIO Personal Advocate & Liaison (PAL) 01/08/19 07/10/23 Ravi Barillas DPM [address] [facility] [address] [place] [address] Assigned Musculoskeletal Provider 03/23/20 10/30/21 Christy Campuzano PA-C [address] [place] [address] [id number] Referring Physician Family Medicine 04/22/20 Hans Cannon MD [address] [place] [address] 027112 Resident Pulmonary Disease 04/22/20 Mitra Kendall, [facility] Lead Battery Engineer Primary Care - CC 01/08/1901/12 Burt Jovel MD Internal Medicine 05/08/20 12/13/23 Estella Hassan, [facility] [address] [place], [place] 4247[address] Pharmacist Pharmacist 05/26/20 Reji Chavez MD [address] [place] [phone] Assigned Heart and Vascular Provider 05/18/20 10/30/21 Elaina Moreno MD [address] [place] [address] Assigned Surgical Provider 05/18/20 11/19/22 Elaina Moreno MD [facility] [place] [address] Cardiovascular & Thoracic Surgery 08/06/20 Kelsi Hassan MD [address] [place] [address] 284 [place] [address] Assigned Pulmonology Provider 06/28/21 02/05/22 John Webb MD [address] [place] [address] Cardiovascular Disease 08/25/21 John Webb MD [address] [place] [address] Cardiovascular Disease 08/25/21 Estella Hassan, [facility] [address] [place] [address] Assigned MTM Pharmacist 09/05/21 Nav Hughes MD [address] [place] [address] Assigned Heart and Vascular Provider 10/31/21 09/03/23 Cassandra Mendoza MD ORTHOPAEDIC SURGERY [facility] [address] Assigned Musculoskeletal Provider 10/31/21 08/13/22 Estella Hassan, [facility] [address] [place] [address] Assigned MTM Pharmacist 12/09/21 Mitra Kendall, INDUSTRIAL ORGANIZATIONAL PSYCHOLOGIST Lead Battery Engineer Primary Care - CC 01/26/2210/28 Lindsay Carey OD [address] [facility] [address] Ophthalmology 01/29/22 Ravi Brownlee MD [address] [place] [address] 276 [place], [place] 418135 Assigned Pulmonology Provider 02/06/22 09/03/23 Arabella Fishman MA Financial Resource Worker 02/22/22 02/23/22 Richard Kam MD [address] [place] [address] 109415 Assigned Musculoskeletal Provider 08/14/22 [facility] [address] [facility] [address] [place] [phone] Pharmacist Pharmacist 11/22/22 01/09/23 [place] [address] [employer] PENA, [address] [address] Assigned Neuroscience Provider 01/01/23 Rosemarie Mcdowell, RN Web Site Admin Diabetes Education 03/17/23 Ravi Brownlee MD [address] [place] [address] 276 [place], [place] 741175 Assigned Heart and Vascular Provider 09/04/23 01/03/24 Mitra Kendall, INDUSTRIAL ORGANIZATIONAL PSYCHOLOGIST Lead Battery Engineer Primary Care - CC 12/12/23 Lizet Mann PA-C [address] [place], [place] 968795 Assigned Cancer Care Provider 01/04/24 Ravi Brownlee MD 420 [facility] [address] [place], [place] 6569[address] Assigned Pulmonology Provider 01/04/24 Nav Hughes MD 6405 [facility] [address] [place] 358905 Assigned Heart and Vascular Provider 01/04/24 Manuel Ahn OD 6341 [facility] [place] [id number] Book Illustrator 01/05/24 Arabella Fishman MA Financial Resource Worker 01/06/24 Thalia Charles [facility] Pharmacist Pharmacy 01/26/24 documented as of this encounter
--- OUTSIDE RECORDS SUMMARY | 2024-01-31 20:11 | XMS_ITS | Encounter Summary ---
Author Organization [place] Address [address] [place] [address] Care Team Providers Care Corsets Salesperson Name Role Phone Va Glez MD Primary Care Provider Va Glez MD Unavailable Kerry Bernal RN Unavailable [phone] Ravi Barillas DPM Unavailable [phone] Christy Campuzano PA-C Unavailable [phone] Hans Cannon MD Unavailable Mitra Kendall CADD OPERATOR Unavailable [phone] Burt Jovel MD Unavailable Estella Hassan [facility] Unavailable Reji Chavez MD Unavailable [phone] Josh Cordero MD, Madhuri Unavailable [phone] Josh Cordero MD, Madhuri Unavailable [phone] Kelsi Hassan MD Unavailable [phone] John Webb MD Unavailable John Webb MD Unavailable Estella Hassan [facility] Unavailable Nav Hughes MD Unavailable [phone] Cassandra Mendoza MD Unavailable [phone] Estella Hassan H Unavailable Mitra Kendall CADD OPERATOR Unavailable Aurelio Lindsay Kenzie OD Unavailable [phone] TaftvilleRavi bajwa MD Unavailable Arabella Fishman MA Unavailable [phone] Richard Kam MD Unavailable Marisol Patel [facility] Unavailable Gaby Vila DO Unavailable Rosemarie Mcdowell RN Unavailable Ravi Brownlee MD Unavailable Mitra Kendall CADD OPERATOR Unavailable Lizet Mann PA-C Unavailable [phone] Ravi Brownlee MD Unavailable Nav Hughes MD Unavailable [phone] Manule Ahn OD Unavailable [phone] Arabella Fishman MA Unavailable [phone] Thalia Charles [facility] Unavailable Unavailable Encounter Details Date Type Department Care Team (Late st Contact Info) Description 07/24/2020 MyC Medical Advice [facility] [id number] [place] [phone] [place] [id number] [place] [address] Social History Tobacco Use Types Packs/Day [...] and Family Not on file 05/31/2019 Attends Rastafarian Services Not on file 05/30 Active Member [...] Answer Date Recorded PHQ-2 Score 2 07/28/2020 [facility] - Occupational [...] on file Legal 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 SHOP LABORER Gender Identity Not on file Sexual Orientation [...] st Contact Info) Description 02/01/2024 3:00 PM SHOP LABORER Office Visit [facility] [address] [place] [phone] Manuel Ahn, [address] [place] [address] 02/02/2024 1:30 PM SHOP LABORER Therapy Visit [facility] [address] [facility] [address] [place] [phone] Alicja Roldan OT 909 [place] [address] 02/05/2024 8:00 PM SHOP LABORER Therapy Visit [facility] [address] [place] [phone] 02/13/2024 4:30 PM SHOP LABORER Oncology Visit [facility] 9[address] [place] [phone] Marian Agustin, FLOOR TECH LOGISTICS PLANNING ENGINEER [address] [facility] [address] [place], [place] [address] 03/01/2024 7:00 AM SHOP LABORER Office Visit [facility] [address] [place] [phone] Estella Hassan, [facility] [address] [place] [address] 03/23/2024 2:00 PM SHOP LABORER Office Visit [facility] [address] [place] [address] Lizet Mann PA-C 717 [place] [address] 03/29/2024 3:30 PM SHOP LABORER Office Visit [facility] 2945 [facility] 200 [place] [phone] Hakeem Chacko MBBS 2945 [place] [address] 05/03/2024 3:00 PM SHOP LABORER Office Visit [facility] [address] [place] [phone] Gaurav Valenzuela, FLOOR TECH [facility] [address] [place] [address] 05/22/2024 10:30 AM CDT Office Visit [address] [phone] Estella Hassan, [facility] [address] [place] [address] 05/22/2024 11:30 AM CDT Office Visit [address] [address] [place] [address] [place], [place] [phone] documented as of this encounter Visit Diagnoses Not on filedocumented in this encounter Additional Health Concerns Infection Onset Date Last Indicated Resolved Time Rule Out COVID-19 06/22/2021 06/22/2021 06/23/2021 8:58 PM CDT Rule Out COVID-19 01/22/2022 01/22/2022 01/24/2022 1:05 PM SHOP LABORER Rule Out COVID-19 01/25/2022 01/25/2022 01/25/2022 5:21 AM SHOP LABORER Influenza 01/25/2022 01/25/2022 02/01/2022 11:4 1 PM SHOP LABORER Rule Out COVID-19 07/29/2022 07/29/2022 07/31/2022 11:17 AM CDT Rule Out COVID-19 03/23/2023 03/23/2023 03/23/2023 6:30 PM SHOP LABORER COVID-19 03/23/2023 03/23/2023 04/13/2023 11:4 0 PM SHOP LABORER Rule Out COVID-19 06/05/2023 06/05/2023 06/05/2023 5:53 PM CDT Rule Out COVID-19 11/06/2023 11/06/2023 11/06/2023 11:05 PM CDT Rule Out COVID-19 11/20/2023 11/20/2023 11/20/2023 6:43 PM CDT Rule Out COVID-19 12/27/2023 12/27/2023 12/29/2023 1:37 PM CDT Assessment Noted Time PHQ-9 Depression Total Score: 7 07/29/19 21 7:03 AM CDT documented as of this encounter Care Teams Corsets Salesperson Relationship Specialty [place] [address] [place] [address] PCP - General Family Practice 07/11/14 [place] [address] [place] [address] Assigned PCP 12/16/11 Kerry Bernal, INOCENCIO Personal Advocate & Liaison (PAL) 01/08/19 07/10/23 Ravi Barillas DPM [address] [facility] [address] [place] [address] Assigned Musculoskeletal Provider 03/23/20 10/30/21 Christy Campuzano PA-C [address] [place] [address] [phone] Referring Physician Family Medicine 04/22/20 Hans Cannon MD [address] [place] [address] [phone] Resident Pulmonary Disease 04/22/20 Mitra Kendall, [facility] Lead Secretary Administrative Assistant Primary Care - CC 01/08/1901/12 Burt Jovel MD Internal Medicine 05/08/20 12/13/23 Estella Hassan, [facility] [address] [place], [place] [address] Pharmacist Pharmacist 05/26/20 Reji Chavez MD [address] [place] [phone] Assigned Heart and Vascular Provider 05/18/20 10/30/21 Elaina Moreno MD [address] [place] [address] Assigned Surgical Provider 05/18/20 11/19/22 Elaina Moreno MD [facility] [place] [address] Cardiovascular & Thoracic Surgery 08/06/20 Kelsi Hassan MD [address] [place] [address] [address] [place] [address] Assigned Pulmonology Provider 06/28/21 02/05/22 John Webb MD [address] [place] [address] Cardiovascular Disease 08/25/21 John Webb MD [address] [place] [address] Cardiovascular Disease 08/25/21 Estella Hassan, [facility] [address] [place] [address] Assigned MTM Pharmacist 09/05/21 Nav Hughes MD [address] [place] [address] Assigned Heart and Vascular Provider 10/31/21 09/03/23 Cassandra Mendoza MD ORTHOPAEDIC SURGERY [facility] [address] [address] Assigned Musculoskeletal Provider 10/31/21 08/13/22 Estella Hassan, [facility] [address] [place] [address] Assigned MTM Pharmacist 12/09/21 Mitra Kendall, CADD OPERATOR Lead Secretary Administrative Assistant Primary Care - CC 01/26/2210/28 Lindsay Carey OD [address] [facility] [place] [place] [address] Ophthalmology 01/29/22 Ravi Brownlee MD [address] [place] [address] [address] [place], [place] [phone] Assigned Pulmonology Provider 02/06/22 09/03/23 Arabella Fishman MA Financial Resource Worker 02/22/22 02/23/22 Richard Kam MD [address] [place] [address] 927735 Assigned Musculoskeletal Provider 08/14/22 [facility] [address] [facility] [address] [place] [phone] Pharmacist Pharmacist 11/22/22 01/09/23 [place] [address] [facility] [place], [address] [address] Assigned Neuroscience Provider 01/01/23 Rosemarie Mcdowell, RN Plaster Helper Diabetes Education 03/17/23 Ravi Brownlee MD [address] [place] [address] [address] [place], [place] [address] Assigned Heart and Vascular Provider 09/04/23 01/03/24 Mitra Kendall, CADD OPERATOR Lead Secretary Administrative Assistant Primary Care - CC 12/12/23 Liezt Mann PA-C 7[address] [place], [place] [address] Assigned Cancer Care Provider 01/04/24 Ravi Brownlee MD [address] [facility] [address] [place], [place] 0487[address] Assigned Pulmonology Provider 01/04/24 Nav Hughes MD [address] [facility] [address] [place] [address] Assigned Heart and Vascular Provider 01/04/24 Manuel Ahn OD [address] [facility] [place] [address] Quarter Lining Smoother 01/05/24 Arabella Fishman MA Financial Resource Worker 01/06/24 Thalia [address] [facility] Pharmacist Pharmacy 01/26/24 documented as of this encounter
--- OUTSIDE RECORDS SUMMARY | 2024-01-31 20:11 | XMS_ITS | Encounter Summary ---
Author Organization [place] Address [address] [place] [address] Care Team Providers Care Combination Machine Tool Operator Name Role Phone Va Glez MD Primary Care Provider Va Glez MD Unavailable Kerry Bernal RN Unavailable [phone] Ravi Barillas DPM Unavailable [phone] Christy Campuzano PA-C Unavailable Hans Cannon MD Unavailable [phone] Mitra Kendall DIRECTOR PEDIATRIC Unavailable [phone] Burt Jovel MD Unavailable Estella Hassan [facility] Unavailable Reji Chavez MD Unavailable Josh Cordero MD, Madhuri Unavailable [phone] Josh Cordero MD, Madhuri Unavailable [phone] Kelsi Hassan MD Unavailable [phone] John Webb MD Unavailable John Webb MD Unavailable Estella Hassan [facility] Unavailable Nav Hughes MD Unavailable [phone] Cassandra Mendoza MD Unavailable [phone] Estella Hassan H Unavailable Mitra Kendall DIRECTOR PEDIATRIC Unavailable [phone] Aurelio Lindsay Kenzie OD Unavailable BoylstonRavi bajwa MD Unavailable Arabella Fishman MA Unavailable [phone] Richard Kam MD Unavailable Marisol Patel [facility] Unavailable Gaby Vila DO Unavailable Rosemarie Mcdowell RN Unavailable Ravi Brownlee MD Unavailable Mitra Kendall DIRECTOR PEDIATRIC Unavailable Lizet Mann PA-C Unavailable Ravi Brownlee MD Unavailable [phone] Nav Hughes MD Unavailable [phone] Manuel Ahn OD Unavailable [phone] Arabella Fishman MA Unavailable [phone] Thalia Charles [facility] Unavailable Unavailable Encounter Details Date Type Department Care Team (Late st Contact Info) Description 07/11/2020 MyC Medical Advice [address] [address] Breanna Mustafa, DENTAL PRACTITIONER Social History Tobacco Use Types Packs/Day Years [...] and Family Not on file 05/31/2019 Attends Restorationist Services Not on file 05/30 Active Member [...] Answer Date Recorded PHQ-2 Score 0 06/05/2020 [facility] Occupat ional [facility] - Occupational Stress [...] on file Legal 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 PACKER INSULATION Gender Identity Not on file Sexual Orientation Not on file Occupation Industry Job Start Date Job End Date Not on file Not on file Not on file Not on file COVID-19 Exposure Response Date Recorded In the last month, have you been in contact with someone who was confirmed or suspected to have Coronavirus / COVID-19? No / Unsure 07/14/2020 1:43 PM CDT documented as of this encounter Plan of Treatment Upcoming Encounters Date Type Department Care Team (Late st Contact Info) Description 02/01/2024 3:00 PM PACKER INSULATION Office Visit [facility] 6[address] [place] [address] Manuel Ahn, [address] [place] [address] 02/02/2024 1:30 PM PACKER INSULATION Therapy Visit [facility] Specialty [place] [address] [facility] [address] [place] [phone] Alicja Roldan, OT 909 [place] [address] 02/05/2024 8:00 PM PACKER INSULATION Therapy Visit [facility] [address] [place] [address] 103 [place] [phone] 02/13/2024 4:30 PM PACKER INSULATION Oncology Visit [facility] 909 [place] [phone] Marian Agustin, NESSA PROBATION COUNSELOR [address] [facility] [address] [place] [address] 03/01/2024 7:00 AM PACKER INSULATION Office Visit [facility] [address] [place] [phone] Estella Hassan, [facility] 30[address] [place] [address] 03/23/2024 2:00 PM PACKER INSULATION Office Visit [facility] [address] [place] [address] Lizet Mann PA-C 717 [place] [address] 03/29/2024 3:30 PM PACKER INSULATION Office Visit [facility] 2945 [facility] 200 [place] [address] Hakeem Chacko MBBS 2945 [place] [address] 05/03/2024 3:00 PM PACKER INSULATION Office Visit [facility] [address] [place] [phone] Gaurav Valenzuela, MACHINE CEMENTER AND FOLDER [address] [address] 05/22/2024 10:30 AM CDT Office Visit [address] [phone] Estella Hassan, [facility] [address] [place] [address] 05/22/2024 11:30 AM CDT Office Visit [facility] [address] [place] [phone] [place] [address] [place] [address] [phone] documented as of this encounter Visit Diagnoses Not on filedocumented in this encounter Additional Health Concerns Infection Onset Date Last Indicated Resolved Time Rule Out COVID-19 06/22/2021 06/22/2021 06/23/2021 8:58 PM CDT Rule Out COVID-19 01/22/2022 01/22/2022 01/24/2022 1:05 PM PACKER INSULATION Rule Out COVID-19 01/25/2022 01/25/2022 01/25/2022 5:21 AM PACKER INSULATION Influenza 01/25/2022 01/25/2022 02/01/2022 11:4 1 PM PACKER INSULATION Rule Out COVID-19 07/29/2022 07/29/2022 07/31/2022 11:17 AM CDT Rule Out COVID-19 03/23/2023 03/23/2023 03/23/2023 6:30 PM PACKER INSULATION COVID-19 03/23/2023 03/23/2023 04/13/2023 11:4 0 PM PACKER INSULATION Rule Out COVID-19 06/05/2023 06/05/2023 06/05/2023 5:53 PM CDT Rule Out COVID-19 11/06/2023 11/06/2023 11/06/2023 11:05 PM CDT Rule Out COVID-19 11/20/2023 11/20/2023 11/20/2023 6:43 PM CDT Rule Out COVID-19 12/27/2023 12/27/2023 12/29/2023 1:37 PM CDT Assessment Noted Time PHQ-9 Depression Total Score: 2 06/06/19 12:47 PM CDT documented as of this encounter Care Teams Combination Machine Tool Operator Relationship Specialty [place] [address] [place] [address] PCP - General Family Practice 07/11/14 [place] [address] [place] [address] Assigned PCP 12/16/11 Kerry Bernal, INOCENCIO Personal Advocate & Liaison (PAL) 01/08/19 07/10/23 Ravi Barillas DPM [address] [place] [address] Assigned Musculoskeletal Provider 03/23/20 10/30/21 Christy Campuzano PA-C [address] [place] [address] Referring Physician Family Medicine 04/22/20 Hans Cannon MD [address] [place] [address] Resident Pulmonary Disease 04/22/20 Mitra Kendall, [facility] Lead Resort Manager Primary Care - CC 01/08/1901/12 Burt Jovel MD Internal Medicine 05/08/20 12/13/23 Estella Hassan, [facility] [address] [place], [place] [address] Pharmacist Pharmacist 05/26/20 Reji Chavez MD [address] [place] [address] Assigned Heart and Vascular Provider 05/18/20 10/30/21 Elaina Moreno MD [address] [place] [address] 543405 Assigned Surgical Provider 05/18/20 11/19/22 Elaina Moreno MD [address] [place] [address] Cardiovascular & Thoracic Surgery 08/06/20 Kelsi Hassan MD [address] [place] [address] [address] [place] [address] Assigned Pulmonology Provider 06/28/21 02/05/22 John Webb MD [address] 479195 Cardiovascular Disease 08/25/21 John Webb MD [address] 068505 Cardiovascular Disease 08/25/21 Estella Hassan, [facility] [address] [place] [address] Assigned MTM Pharmacist 09/05/21 Nav Hughes MD [address] [place] [address] Assigned Heart and Vascular Provider 10/31/21 09/03/23 Cassandra Mendoza MD ORTHOPAEDIC SURGERY [address] [place] [address] Assigned Musculoskeletal Provider 10/31/21 08/13/22 Estella Hassan, [facility] [place] [address] Assigned MTM Pharmacist 12/09/21 Mitra Kendall, DIRECTOR PEDIATRIC Lead Resort Manager Primary Care - CC 01/26/2210/28 [place] [address] [place] [address] [place] [address] Ophthalmology 01/29/22 Raiv Brownlee MD [address] [place] [address] Assigned Pulmonology Provider 02/06/22 09/03/23 Arabella Fishman MA Financial Resource Worker 02/22/22 02/23/22 Richard Kam MD [address] [place] [address] Assigned Musculoskeletal Provider 08/14/22 Marisol Patel, [facility] [address] [place] [address] [address] [place] [phone] Pharmacist Pharmacist 11/22/22 01/09/23 [place] [address] [address] Assigned Neuroscience Provider 01/01/23 Rosemarie Mcdowell, RN Fur Examiner Diabetes Education 03/17/23 Ravi Brownlee MD [address] [place] [address] Assigned Heart and Vascular Provider 09/04/23 01/03/24 Mitra Kendall, DIRECTOR PEDIATRIC Lead Resort Manager Primary Care - CC 12/12/23 Lizet Mann PA-C [address] [place] [address] Assigned Cancer Care Provider 01/04/24 Ravi Brownlee MD 420 [facility] [address] [place] [address] Assigned Pulmonology Provider 01/04/24 Nav Hughes MD [address] [place] [address] [address] [address] Assigned Heart and Vascular Provider 01/04/24 Manuel Ahn OD [address] [facility] [address] [address] Vice President Business Development 01/05/24 Arabella Fishman MA Financial Resource Worker 01/06/24 Thalia Charles [facility] Pharmacist Pharmacy 01/26/24 documented as of this encounter
--- OUTSIDE RECORDS SUMMARY | 2024-01-31 20:11 | XMS_ITS | Encounter Summary ---
Author Organization [place] Address [address] [place] [address] Care Team Providers Care Flower Pot Press Operator Name Role Phone Va Glez MD Primary Care Provider Va Glez MD Unavailable Kerry Bernal RN Unavailable [phone] Ravi Barillas DPM Unavailable [phone] Christy Campuzano PA-C Unavailable [phone] Hans Cannon MD Unavailable Mitra Kendall BLOOD COORDINATOR Unavailable Burt Jovel MD Unavailable Estella Hassan [facility] Unavailable [phone] Reji Chavez MD Unavailable Josh Cordero MD, Madhuri Unavailable [phone] Josh Codrero MD, Madhuri Unavailable [phone] Kelsi Hassan MD Unavailable [phone] John Webb MD Unavailable John Webb MD Unavailable [phone] Estella Hassan [facility] Unavailable [phone] Nav Hughes MD Unavailable [phone] Cassandra Mendoza MD Unavailable Estella Hassan H Unavailable Mitra Kendall BLOOD COORDINATOR Unavailable Aurelio Lindasy Kenzie OD Unavailable Ravi Brownlee MD Unavailable Arabella Fishman MA Unavailable [phone] Richard Kam MD Unavailable Marisol Patel [facility] Unavailable [phone] Gaby Vila DO Unavailable Rosemarie Mcdowell RN Unavailable Ravi Brownlee MD Unavailable Mitra Kendall BLOOD COORDINATOR Unavailable Lizet Mann PA-C Unavailable Ravi Brownlee MD Unavailable [phone] Nav Hughes MD Unavailable [phone] Manuel Ahn OD Unavailable [phone] Arabella Fishman MA Unavailable [phone] Thalia Charles [facility] Unavailable Unavailable Encounter Details Date Type Department Care Team (Late st Contact Info) Description 07/14/2020 [facility] [address] [place] [phone] Elaina Moreno MD [address] [place] [address] Social History Tobacco Use Types Packs/Day [...] and Family Not on file 05/31/2019 Attends [employer] Not on file 05/30 Active Member [...] Answer Date Recorded PHQ-2 Score 0 06/05/2020 [facility] [place] of Occupat ional Health - Occupational Stress [...] file Legal 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 FOOD SAFETY SCIENTIST Gender Identity Not on file Sexual Orientation Not on file Occupation Industry Job Start Date Job End Date Not on file Not on file Not on file Not on file COVID-19 Exposure Response Date Recorded In the last month, have you been in contact with someone who was confirmed or suspected to have Coronavirus / COVID-19? No / Unsure 07/16/2020 3:19 PM CDT documented as of this encounter Plan of Treatment Upcoming Encounters Date Type Department Care Team (Late st Contact Info) Description 02/01/2024 3:00 PM FOOD SAFETY SCIENTIST Office Visit [facility] [address] [place] [phone] Manuel Ahn, [address] [place] [address] 02/02/2024 1:30 PM FOOD SAFETY SCIENTIST Therapy [facility] [address] [facility] [address] [place] [phone] Alicja Roldan OT 9[address] [place] [address] 02/05/2024 8:00 PM FOOD SAFETY SCIENTIST Therapy Visit [facility] [address] [place] [phone] 02/13/2024 4:30 PM FOOD SAFETY SCIENTIST Oncology Visit [facility] 909 [place] [phone] Marian Agustin, NESSA FISH ROE TECHNICIAN [address] [facility] [address] [place], [place] [address] 03/01/2024 7:00 AM FOOD SAFETY SCIENTIST Office Visit [facility] [address] [place] [phone] Estella Hassan, [facility] 3033 [place] [address] 03/23/2024 2:00 PM FOOD SAFETY SCIENTIST Office [facility] [address] [place] [address] Lizet Mann PA-C 717 [place] [address] 03/29/2024 3:30 PM FOOD SAFETY SCIENTIST Office Visit [facility] [address] [facility] 200 [place] [phone] Hakeem Chacko MBBS 2945 [place] [address] 05/03/2024 3:00 PM FOOD SAFETY SCIENTIST Office [facility] [address] [place] [phone] Gaurav Valenzuela, ACIDIZER [facility] [address] [place] [address] [phone] 05/22/2024 10:30 AM CDT Office Visit [address] [phone] Estella Hassan, [facility] [address] [place] [address] 05/22/2024 11:30 AM CDT Office Visit [address] [address] Va Glez MD [address] [place] [address] [phone] documented as of this encounter Visit Diagnoses Not on filedocumented in this encounter Additional Health Concerns Infection Onset Date Last Indicated Resolved Time Rule Out COVID-19 06/22/2021 06/22/2021 06/23/2021 8:58 PM CDT Rule Out COVID-19 01/22/2022 01/22/2022 01/24/2022 1:05 PM FOOD SAFETY SCIENTIST Rule Out COVID-19 01/25/2022 01/25/2022 01/25/2022 5:21 AM FOOD SAFETY SCIENTIST Influenza 01/25/2022 01/25/2022 02/01/2022 11:4 1 PM FOOD SAFETY SCIENTIST Rule Out COVID-19 07/29/2022 07/29/2022 07/31/2022 11:17 AM CDT Rule Out COVID-19 03/23/2023 03/23/2023 03/23/2023 6:30 PM FOOD SAFETY SCIENTIST COVID-19 03/23/2023 03/23/2023 04/13/2023 11:4 0 PM FOOD SAFETY SCIENTIST Rule Out COVID-19 06/05/2023 06/05/2023 06/05/2023 5:53 PM CDT Rule Out COVID-19 11/06/2023 11/06/2023 11/06/2023 11:05 PM CDT Rule Out COVID-19 11/20/2023 11/20/2023 11/20/2023 6:43 PM CDT Rule Out COVID-19 12/27/2023 12/27/2023 12/29/2023 1:37 PM CDT Assessment Noted Time PHQ-9 Depression Total Score: 2 06/06/19 21 12:47 PM CDT documented as of this encounter Care Teams Flower Pot Press Operator Relationship Specialty [place] [address] [place] [address] PCP - General Family Practice 07/11/14 [place] [address] [place] [address] Assigned PCP 12/16/11 Kerry Bernal RN Personal Advocate & Liaison (PAL) 01/08/19 07/10/23 Ravi Barillas DPM [address] [facility] [address] [place] [address] Assigned Musculoskeletal Provider 03/23/20 10/30/21 Christy Campuzano PA-C [address] [place] [address] [phone] Referring Physician Family Medicine 04/22/20 Hans Cannon MD [address] [place] [address] 785952 Resident Pulmonary Disease 04/22/20 Mitra Kendall, [facility] Lead Cotton Classer Aide Primary Care - CC 01/08/1901/12 Burt Jovel MD Internal Medicine 05/08/20 12/13/23 Estella Hassan, [facility] [address] [place], [place] [phone] Pharmacist Pharmacist 05/26/20 Reji Chavez MD [address] [place] [phone] Assigned Heart and Vascular Provider 05/18/20 10/30/21 Elaina Moreno MD [address] [place] [address] Assigned Surgical Provider 05/18/20 11/19/22 Elaina Moreno MD 909 [place] [address] Cardiovascular & Thoracic Surgery 08/06/20 Kelsi Hassan MD [address] [place] [address] 284 [place] [address] Assigned Pulmonology Provider 06/28/21 02/05/22 John Webb MD [address] [place] [address] Cardiovascular Disease 08/25/21 John Webb MD [address] [place] [address] Cardiovascular Disease 08/25/21 Estella Hassan, [facility] [address] [place] [address] Assigned MTM Pharmacist 09/05/21 Nav Hughes MD [address] [place] [address] Assigned Heart and Vascular Provider 10/31/21 09/03/23 Cassandra Mendoza MD ORTHOPAEDIC SURGERY [address] [address] Assigned Musculoskeletal Provider 10/31/21 08/13/22 Estella Hassan, [facility] [address] [place] [address] Assigned MTM Pharmacist 12/09/21 Mitra Kendall, [facility] Lead Cotton Classer Aide Primary Care - CC 01/26/2210/28 Lindsay Carey OD [address] [facility] [address] Ophthalmology 01/29/22 Ravi Brownlee MD [address] [place] [address] 276 [place], [place] 859475 Assigned Pulmonology Provider 02/06/22 09/03/23 Arabella Fishman MA Financial Resource Worker 02/22/22 02/23/22 Richard Kam MD [address] [place] [address] [id number] Assigned Musculoskeletal Provider 08/14/22 [facility] [address] [facility] [facility] [address] [place] [phone] Pharmacist Pharmacist 11/22/22 01/09/23 [place] [address] [address] Assigned Neuroscience Provider 01/01/23 Rosemarie Mcdowell, RN [facility] 03/17/23 Ravi Brownlee MD [address] [place] [address] 276 [place], [place] 395075 Assigned Heart and Vascular Provider 09/04/23 01/03/24 Mitra Kendall, [facility] Lead Cotton Classer Aide Primary Care - CC 12/12/23 Lizet Mann PA-C 717 [place] [address] Assigned Cancer Care Provider 01/04/24 Ravi Brownlee MD [address] [facility] [address] [place], [place] 259565 Assigned Pulmonology Provider 01/04/24 Nav Hughes MD [address] [facility] [place] 142985 Assigned Heart and Vascular Provider 01/04/24 Manuel Ahn OD [address] [facility] SHANKAR RICHARDS [id number] Cleaning Supervisor 01/05/24 Arabella Fishman MA Financial Resource Worker 01/06/24 Thalia Charles [facility] Pharmacist Pharmacy 01/26/24 documented as of this encounter
--- OUTSIDE RECORDS SUMMARY | 2024-01-31 20:11 | XMS_ITS | Encounter Summary ---
Author Organization [facility] Address [address] [place] [address] Care Team Providers Care Payroll Specialist Name Role Phone Va Glez MD Primary Care Provider [phone] Va Glez MD Unavailable Kerry Bernal RN Unavailable [phone] Ravi Barillas DPM Unavailable [phone] Christy Campuzano PA-C Unavailable Hans Cannon MD Unavailable [phone] Mitra Kendall AGRONOMY TECHNICIAN Unavailable Burt Jovel MD Unavailable Estella Hassan [facility] Unavailable Reji Chavez MD Unavailable Josh Cordero MD, Madhuri Unavailable [phone] Josh Cordero MD, Madhuri Unavailable [phone] Kelsi Hassan MD Unavailable [phone] John Webb MD Unavailable John Webb MD Unavailable Estella Hassan [facility] Unavailable Nav Hughes MD Unavailable [phone] Cassandra Mendoza MD Unavailable [phone] Estella Hassan H Unavailable Mitra Kendall AGRONOMY TECHNICIAN Unavailable [phone] Aurelio Lindsay Kenzie OD Unavailable RandolphRavi bajwa MD Unavailable Arabella Fishman MA Unavailable [phone] Richard Kam MD Unavailable Marisol Patel [facility] Unavailable Gaby Vila DO Unavailable Rosemarie Mcdowell RN Unavailable Ravi Brownlee MD Unavailable [phone] Mitra Kendall AGRONOMY TECHNICIAN Unavailable Lizet Mann PA-C Unavailable [phone] Ravi Brownlee MD Unavailable [phone] Nav Hughes MD Unavailable [phone] Manuel Ahn OD Unavailable Arabella Fishman MA Unavailable [phone] Thalia Charles [facility] Unavailable Unavailable Encounter Details Date Type Department Care Team (Late st Contact Info) Description 07/22/[address] [facility] [address] [phone] Nilsa Harper LICSW [address], [address] [place] [address] Social History Tobacco Use Types [...] Answer Date Recorded PHQ-2 Score 0 06/05/2020 [facility] [place] of Occupat ional Health - Occupational Stress [...] on file Legal 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 RUBBER GOODS TESTER Gender Identity Not on file Sexual Orientation [...] st Contact Info) Description 02/01/2024 3:00 PM RUBBER GOODS TESTER Office Visit [facility] [address] [place] [phone] Manuel Ahn, [address] [place] [address] 02/02/2024 1:30 PM RUBBER GOODS TESTER Therapy [facility] [address] [facility] [address] [place] [phone] Alicja Roldan, OT 909 [place] [address] 02/05/2024 8:00 PM RUBBER GOODS TESTER Therapy [facility] [place] [address] [place] [address] [address] [place] [phone] 02/13/2024 4:30 PM RUBBER GOODS TESTER Oncology Visit [facility] 909 [place] [phone] Marian Agustin, ROUTE RIDER SUPERVISOR TON CONTAINER FILLER [address] [facility] 207 [place], [place] 201115 03/01/2024 7:00 AM RUBBER GOODS TESTER Office Visit [facility] [address] [place] [phone] Estella Hassan, [facility] 2[address] [place] [address] 03/23/2024 2:00 PM RUBBER GOODS TESTER Office Visit [facility] [address] [place] [address] Lizet Mann PA-C 717 [place] [address] 03/29/2024 3:30 PM RUBBER GOODS TESTER Office Visit [facility] [address] [facility] [address] [place] [phone] Hakeem Chacko MBBS [address] [place] [address] 05/03/2024 3:00 PM RUBBER GOODS TESTER Office Visit [facility] [address] [place] [address] Gaurav Valenzuela, ROUTE RIDER SUPERVISOR [facility] [address] [place] [address] 894644 05/22/2024 10:30 AM CDT Office Visit [address] [phone] Estella Hassan, [facility] 30[address] [place] [address] 05/22/2024 11:30 AM CDT Office Visit [address] [address] [place] [address] [place], [place] [phone] documented as of this encounter Visit Diagnoses Not on filedocumented in this encounter Additional Health Concerns Infection Onset Date Last Indicated Resolved Time Rule Out COVID-19 06/22/2021 06/22/2021 06/23/2021 8:58 PM CDT Rule Out COVID-19 01/22/2022 01/22/2022 01/24/2022 1:05 PM RUBBER GOODS TESTER Rule Out COVID-19 01/25/2022 01/25/2022 01/25/2022 5:21 AM RUBBER GOODS TESTER Influenza 01/25/2022 01/25/2022 02/01/2022 11:4 1 PM RUBBER GOODS TESTER Rule Out COVID-19 07/29/2022 07/29/2022 07/31/2022 11:17 AM CDT Rule Out COVID-19 03/23/2023 03/23/2023 03/23/2023 6:30 PM RUBBER GOODS TESTER COVID-19 03/23/2023 03/23/2023 04/13/2023 11:4 0 PM RUBBER GOODS TESTER Rule Out COVID-19 06/05/2023 06/05/2023 06/05/2023 5:53 PM CDT Rule Out COVID-19 11/06/2023 11/06/2023 11/06/2023 11:05 PM CDT Rule Out COVID-19 11/20/2023 11/20/2023 11/20/2023 6:43 PM CDT Rule Out COVID-19 12/27/2023 12/27/2023 12/29/2023 1:37 PM CDT Assessment Noted Time PHQ-9 Depression Total Score: 7 07/29/19 21 7:03 AM CDT documented as of this encounter Care Teams Payroll Specialist Relationship Specialty [place] [address] [place] [address] PCP - General Family Practice 07/11/14 [place] [address] [place] [address] Assigned PCP 12/16/11 Kerry Bernal, INOCENCIO Personal Advocate & Liaison (PAL) 01/08/19 07/10/23 Ravi Barillas DPM [address] [facility] [address] [place] [address] Assigned Musculoskeletal Provider 03/23/20 10/30/21 Christy Campuzano PA-C [address] [place] [address] [id number] Referring Physician Family Medicine 04/22/20 Hans Cannon MD [address] [place] [address] [phone] Resident Pulmonary Disease 04/22/20 Mitra Kendall, [facility] Lead Zookeeper Primary Care - CC 01/08/1901/12 Burt Jovel MD Internal Medicine 05/08/20 12/13/23 Estella Hassan, [facility] [address] [place], [place] [address]806 Pharmacist Pharmacist 05/26/20 Reji Chavez MD [address] [place] [address] Assigned Heart and Vascular Provider 05/18/20 10/30/21 Elaina Moreno MD [address] [place] [address] Assigned Surgical Provider 05/18/20 11/19/22 Elaina Moreno MD 909 [place] [address] Cardiovascular & Thoracic Surgery 08/06/20 Kesli Hassan MD [address] [place] [address] [facility] [address] [place] [address] Assigned Pulmonology Provider 06/28/21 02/05/22 John Webb MD [address] [place] [place] 355455 Cardiovascular Disease 08/25/21 John Webb MD [address] [place] [address] Cardiovascular Disease 08/25/21 Estella Hassan, [facility] 30[address] [place] [address] Assigned MTM Pharmacist 09/05/21 Nav Hughes MD [address] [place] [address] Assigned Heart and Vascular Provider 10/31/21 09/03/23 Cassandra Mendoza MD ORTHOPAEDIC SURGERY [facility] [address] [address] Assigned Musculoskeletal Provider 10/31/21 08/13/22 Estella Hassan, [facility] [address] [place] [address] Assigned MTM Pharmacist 12/09/21 Mitra Kendall, AGRONOMY TECHNICIAN Lead Zookeeper Primary Care - CC 01/26/2210/28 [place] [address] [place] [address] [place] [address] Ophthalmology 01/29/22 Ravi Brownlee MD [address] [place] [address] 276 [place] [address] Assigned Pulmonology Provider 02/06/22 09/03/23 Arabella Fishman MA Financial Resource Worker 02/22/22 02/23/22 Richard Kam MD [address] [place] [address] [id number] Assigned Musculoskeletal Provider 08/14/22 [facility] [employer] [facility] [address] [place] [phone] Pharmacist Pharmacist 11/22/22 01/09/23 [place] [address] [address] Assigned Neuroscience Provider 01/01/23 Rosemarie Mcdowell, RN Patient Representative Diabetes Education 03/17/23 Ravi Brownlee MD [address] [place] [address] [phone] Assigned Heart and Vascular Provider 09/04/23 01/03/24 Mitra Kendall, AGRONOMY TECHNICIAN Lead Zookeeper Primary Care - CC 12/12/23 Lizet Mann PA-C 717 [place] [address] Assigned Cancer Care Provider 01/04/24 Ravi Brownlee MD 420 [facility] 276 [place], [place] 605875 Assigned Pulmonology Provider 01/04/24 Nav Hughes MD [address] [facility] [place] 578435 Assigned Heart and Vascular Provider 01/04/24 Manuel Ahn OD [address] [facility] [place] [address] [employer] 01/05/24 Arabella Fishman MA Financial Resource Worker 01/06/24 Thalia Charles [facility] Pharmacist Pharmacy 01/26/24 documented as of this encounter
--- OUTSIDE RECORDS SUMMARY | 2024-01-31 20:11 | XMS_ITS | Encounter Summary ---
Author Organization [facility] Address [address] [place] [address] Care Team Providers Care Cray Fishing Hand Name Role Phone Va Glez MD Primary Care Provider Va Glez MD Unavailable Kerry Bernal RN Unavailable [phone] Ravi Barillas DPM Unavailable [phone] Christy Campuzano PA-C Unavailable Hans Cannon MD Unavailable Mitra Kendall SECURITY AND COMPLIANCE PROJECT MANAGER Unavailable Burt Jovel MD Unavailable Estella Hassan [facility] Unavailable Reji Chavez MD Unavailable [phone] Josh Cordero MD, Madhuri Unavailable [phone] Josh Cordero MD, Madhuri Unavailable [phone] Kelsi Hassan MD Unavailable [phone] John Webb MD Unavailable [phone] John Webb MD Unavailable Estella Hassan [facility] Unavailable Nav Hughes MD Unavailable [phone] Cassandra Mendoza MD Unavailable [phone] Estella Hassan H Unavailable Mitra Kendall SECURITY AND COMPLIANCE PROJECT MANAGER Unavailable Aurelio Lindsay Kenzie OD Unavailable Ravi Brownlee MD Unavailable Arabella Fishman MA Unavailable [phone] Richard Kam MD Unavailable Marisol Patel [facility] Unavailable Gaby Vila DO Unavailable Rosemarie Mcdowell RN Unavailable Ravi Brownlee MD Unavailable [phone] Mitra Kendall SECURITY AND COMPLIANCE PROJECT MANAGER Unavailable Lizet Mann PA-C Unavailable Ravi Brownlee MD Unavailable Nav Hughes MD Unavailable [phone] Manuel Ahn OD Unavailable Arabella Fishman MA Unavailable [phone] Thalia Charles [facility] Unavailable Unavailable Encounter Details Date Type Department Care Team (Late st Contact Info) Description 07/26/2020 [facility] [address] [place] [address] Elaina Moreno MD [address] [place] [address] Social History Tobacco Use Types Packs/Day [...] Answer Date Recorded PHQ-2 Score 2 07/28/2020 [facility] [place] of Occupat ional Health - Occupational Stress [...] on file Legal 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 INTERVENTIONAL NURSE Gender Identity Not on file Sexual Orientation [...] st Contact Info) Description 02/01/2024 3:00 PM INTERVENTIONAL NURSE Office Visit [facility] 6[address] [place] [phone] Manuel Ahn, [address] [place] [address] 02/02/2024 1:30 PM INTERVENTIONAL NURSE Therapy Visit [facility] [address] [facility] [address] [place] [phone] Alicja Roldan OT 909 [place] [address] 02/05/2024 8:00 PM INTERVENTIONAL NURSE Therapy Visit [facility] [address] [place] [phone] 02/13/2024 4:30 PM INTERVENTIONAL NURSE Oncology Visit [facility] 909 [place] [phone] Marian Agustin, NESSA BENZENE WORKER [address] [place] [address] [facility] [address] [place], [place] [address] 03/01/2024 7:00 AM INTERVENTIONAL NURSE Office Visit [facility] [address] [place] [phone] Estella Hassan, [facility] 3033 [place] [address] 03/23/2024 2:00 PM INTERVENTIONAL NURSE Office Visit [facility] [address] [place] [address] Lizet Mann PA-C 717 [place] [address] 03/29/2024 3:30 PM INTERVENTIONAL NURSE Office Visit [facility] 2945 [facility] 200 [place] [address] Hakeem Chacko MBBS 2945 [place] [address] 05/03/2024 3:00 PM INTERVENTIONAL NURSE Office Visit [facility] [address] [place] [address] Gaurav Valenzuela, ARCHITECTURAL DRAFTER [facility] [address] [place] [address]1804 05/22/2024 10:30 AM CDT Office Visit [address] [phone] Estella Hassan, [facility] [address] [place] [address] 05/22/2024 11:30 AM CDT Office Visit [address] [address] Va Glez MD [address] [place] [address] [phone] documented as of this encounter Visit Diagnoses Not on filedocumented in this encounter Additional Health Concerns Infection Onset Date Last Indicated Resolved Time Rule Out COVID-19 06/22/2021 06/22/2021 06/23/2021 8:58 PM CDT Rule Out COVID-19 01/22/2022 01/22/2022 01/24/2022 1:05 PM INTERVENTIONAL NURSE Rule Out COVID-19 01/25/2022 01/25/2022 01/25/2022 5:21 AM INTERVENTIONAL NURSE Influenza 01/25/2022 01/25/2022 02/01/2022 11:4 1 PM INTERVENTIONAL NURSE Rule Out COVID-19 07/29/2022 07/29/2022 07/31/2022 11:17 AM CDT Rule Out COVID-19 03/23/2023 03/23/2023 03/23/2023 6:30 PM INTERVENTIONAL NURSE COVID-19 03/23/2023 03/23/2023 04/13/2023 11:4 0 PM INTERVENTIONAL NURSE Rule Out COVID-19 06/05/2023 06/05/2023 06/05/2023 5:53 PM CDT Rule Out COVID-19 11/06/2023 11/06/2023 11/06/2023 11:05 PM CDT Rule Out COVID-19 11/20/2023 11/20/2023 11/20/2023 6:43 PM CDT Rule Out COVID-19 12/27/2023 12/27/2023 12/29/2023 1:37 PM CDT Assessment Noted Time PHQ-9 Depression Total Score: 7 07/29/19 21 7:03 AM CDT documented as of this encounter Care Teams Cray Fishing Hand Relationship Specialty [place] [address] [place] [address] PCP - General Family Practice 07/11/14 [place] [address] [place] [address] Assigned PCP 12/16/11 Kerry Bernal RN Personal Advocate & Liaison (PAL) 01/08/19 07/10/23 Ravi Barillas DPM [address] [facility] [address] [place] [address] Assigned Musculoskeletal Provider 03/23/20 10/30/21 Christy Campuzano PA-C [address] [place] [address] [id number] Referring Physician Family Medicine 04/22/20 Hans Cannon MD [address] [place] [address] [id number] Resident Pulmonary Disease 04/22/20 Mitra Kendall, [facility] Lead Call Out Clerk Primary Care - CC 01/08/1901/12 Burt Jovel MD Internal Medicine 05/08/20 12/13/23 Estella Hassan, [facility] [address] [place], [place] [phone] Pharmacist Pharmacist 05/26/20 Reji Chavez MD [address] [place] [phone] Assigned Heart and Vascular Provider 05/18/20 10/30/21 Elaina Moreno MD [address] [place] [address] Assigned Surgical Provider 05/18/20 11/19/22 Elaina Moreno MD 909 [place] [address] Cardiovascular & Thoracic Surgery 08/06/20 Kelsi Hassan MD [address] [place] [address] 284 [place] [address] Assigned Pulmonology Provider 06/28/21 02/05/22 John Webb MD [address] [place] [address] Cardiovascular Disease 08/25/21 John Webb MD [address] [place] [address] Cardiovascular Disease 08/25/21 Estella Hassan, [facility] [address] [place] [address] Assigned MTM Pharmacist 09/05/21 Nav Hughes MD [address] [place] [address] Assigned Heart and Vascular Provider 10/31/21 09/03/23 Cassandra Mendoza MD ORTHOPAEDIC SURGERY [address] [address] Assigned Musculoskeletal Provider 10/31/21 08/13/22 Estella Hassan, [facility] [address] [place] [address] Assigned MTM Pharmacist 12/09/21 Mitra Kendall, [facility] Lead Call Out Clerk Primary Care - CC 01/26/2210/28 Lindsay Carey OD [address] [facility] [place] [address] Ophthalmology 01/29/22 Ravi Brownlee MD [address] [place] [address] [address] [place], [place] 150275 Assigned Pulmonology Provider 02/06/22 09/03/23 Arabella Fishman MA Financial Resource Worker 02/22/22 02/23/22 Richard Kam MD [address] [place] [address] [id number] Assigned Musculoskeletal Provider 08/14/22 [facility] [address] [facility] [address] [place] [id number] Pharmacist Pharmacist 11/22/22 01/09/23 [place] [address] [address] Assigned Neuroscience Provider 01/01/23 Rosemarie Mcdowell, RN Mis Manager Diabetes Education 03/17/23 Ravi Brownlee MD [address] [place] [address] [address] [place], [place] 127415 Assigned Heart and Vascular Provider 09/04/23 01/03/24 Mitra Kendall, [facility] Lead Call Out Clerk Primary Care - CC 12/12/23 Lizet Mann PA-C 717 [place] [address] Assigned Cancer Care Provider 01/04/24 Ravi Brownlee MD [address] [facility] [address] [place], [place] 793635 Assigned Pulmonology Provider 01/04/24 Nav Hughes MD 6[address] [facility] [place] [id number] Assigned Heart and Vascular Provider 01/04/24 Manuel Ahn OD [address] [facility] [place] [id number] Information Systems Planner 01/05/24 Arabella Fishman MA Financial Resource Worker 01/06/24 Thalia Charles [facility] Pharmacist Pharmacy 01/26/24 documented as of this encounter
--- OUTSIDE RECORDS SUMMARY | 2024-01-31 20:12 | XMS_ITS | Encounter Summary ---
Author Organization [facility] Address [address] [place] [address] Care Team Providers Care Wine Fermenter Name Role Phone Va Glez MD Primary Care Provider [phone] Va Glez MD Unavailable Kerry Bernal RN Unavailable [phone] Ravi Barillas DPM Unavailable [phone] Christy Campuzano PA-C Unavailable Hans Cannon MD Unavailable Mitra Kendall MODEL MAKER PLASTIC Unavailable Burt Jovel MD Unavailable Estella Hassan [facility] Unavailable Reji Chavez MD Unavailable Josh Cordero MD, Madhuri Unavailable [phone] Josh Cordero MD, Madhuri Unavailable [phone] Kelsi Hassan MD Unavailable [phone] John Webb MD Unavailable John Webb MD Unavailable Estella Hassan [facility] Unavailable Nav Hughes MD Unavailable [phone] Cassandra Mendoza MD Unavailable Estella Hassan H Unavailable Mitra Kendall MODEL MAKER PLASTIC Unavailable Aurelio Lindsay Kenzie OD Unavailable Ravi Brownlee MD Unavailable Arabella Fishman MA Unavailable [phone] Richard Kam MD Unavailable Marisol Patel [facility] Unavailable Gaby Vila DO Unavailable Rosemarie Mcdowell RN Unavailable [phone] Ravi Brownlee MD Unavailable [phone] Mitra Kendall MODEL MAKER PLASTIC Unavailable Lizet Mann PA-C Unavailable Ravi Brownlee MD Unavailable Nav Hughes MD Unavailable [phone] Manuel Ahn OD Unavailable [phone] Arabella Fishman MA Unavailable [phone] Thalia Charles [facility] Unavailable Unavailable Encounter Details Date Type Department Care Team (Late st Contact Info) Description 07/03/2020 [facility] [address] [place] [phone] Elaina Moreno MD [address] [place] [address] Social History Tobacco Use Types Packs/Day [...] and Family Not on file 05/31/2019 Attends [employer] Not on file 05/30 Active Member [...] Answer Date Recorded PHQ-2 Score 0 06/05/2020 [facility] [place] of Occupat ional Health - Occupational Stress [...] on file Legal 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 BESSEMER REGULATOR Gender Identity Not on file Sexual Orientation Not on file Occupation Industry Job Start Date Job End Date Not on file Not on file Not on file Not on file COVID-19 Exposure Response Date Recorded In the last month, have you been in contact with someone who was confirmed or suspected to have Coronavirus / COVID-19? No / Unsure 07/04/2020 2:34 PM CDT documented as of this encounter Plan of Treatment Upcoming Encounters Date Type Department Care Team (Late st Contact Info) Description 02/01/2024 3:00 PM BESSEMER REGULATOR Office Visit [facility] 6[address] [place] [phone] Manuel Ahn, 6[address] [place] [address] 02/02/2024 1:30 PM BESSEMER REGULATOR Therapy Visit [facility] [address] [facility] [address] [place] [address] Alicja Roldan OT 909 [place] [address] 02/05/2024 8:00 PM BESSEMER REGULATOR Therapy Visit [facility] [address] [place] [phone] 02/13/2024 4:30 PM BESSEMER REGULATOR Oncology Visit [facility] [address] [place] [address] Marian Agustin, [place] [address] [employer] [address] [place], [place] [address] 03/01/2024 7:00 AM BESSEMER REGULATOR Office Visit [facility] [address] [place] [phone] Estella Hassan, [facility] 3033 [place] [address] 03/23/2024 2:00 PM BESSEMER REGULATOR Office Visit [facility] [address] [place] [address] Lizet Mann PA-C 717 [place] [address] 03/29/2024 3:30 PM BESSEMER REGULATOR Office Visit [facility] 2945 [facility] 200 [place] [phone] Hakeem Chacko MBBS 2945 [place] [address] 05/03/2024 3:00 PM BESSEMER REGULATOR Office Visit [facility] [address] [place] [address] Gaurav Valenzuela, CLINICAL DATA PROGRAMMER [facility] [address] [place] [address] 340764 05/22/2024 10:30 AM CDT Office Visit [address] [phone] Estella Hassan, [facility] 30[address] [place] [address] 05/22/2024 11:30 AM CDT Office Visit [address] [address] Va Glez MD [address] [place] [address] [phone] documented as of this encounter Visit Diagnoses Not on filedocumented in this encounter Additional Health Concerns Infection Onset Date Last Indicated Resolved Time Rule Out COVID-19 06/22/2021 06/22/2021 06/23/2021 8:58 PM CDT Rule Out COVID-19 01/22/2022 01/22/2022 01/24/2022 1:05 PM BESSEMER REGULATOR Rule Out COVID-19 01/25/2022 01/25/2022 01/25/2022 5:21 AM BESSEMER REGULATOR Influenza 01/25/2022 01/25/2022 02/01/2022 11:4 1 PM BESSEMER REGULATOR Rule Out COVID-19 07/29/2022 07/29/2022 07/31/2022 11:17 AM CDT Rule Out COVID-19 03/23/2023 03/23/2023 03/23/2023 6:30 PM BESSEMER REGULATOR COVID-19 03/23/2023 03/23/2023 04/13/2023 11:4 0 PM BESSEMER REGULATOR Rule Out COVID-19 06/05/2023 06/05/2023 06/05/2023 5:53 PM CDT Rule Out COVID-19 11/06/2023 11/06/2023 11/06/2023 11:05 PM CDT Rule Out COVID-19 11/20/2023 11/20/2023 11/20/2023 6:43 PM CDT Rule Out COVID-19 12/27/2023 12/27/2023 12/29/2023 1:37 PM CDT Assessment Noted Time PHQ-9 Depression Total Score: 2 06/06/19 21 12:47 PM CDT documented as of this encounter Care Teams Wine Fermenter Relationship Specialty [place] [address] [place] [address] PCP - General Family Practice 07/11/14 [place] [address] [place] [address] Assigned PCP 12/16/11 Kerry Bernal RN Personal Advocate & Liaison (PAL) 01/08/19 07/10/23 Ravi Barillas DPM [address] [facility] [address] [place] [address] Assigned Musculoskeletal Provider 03/23/20 10/30/21 Christy Campuzano PA-C [address] [place] [address] [id number] Referring Physician Family Medicine 04/22/20 Hans Cannon MD [address] [place] [address] 612992 Resident Pulmonary Disease 04/22/20 Mirta Kendall, [facility] Lead Cast Shell Grinder Primary Care - CC 01/08/1901/12 Burt Jovel MD Internal Medicine 05/08/20 12/13/23 Estella Hassan, [facility] [address] [place], [place] [address] Pharmacist Pharmacist 05/26/20 Reji Chavez MD [address] [place] [address] Assigned Heart and Vascular Provider 05/18/20 10/30/21 lEaina Moreno MD [address] [place] [address] Assigned Surgical Provider 05/18/20 11/19/22 Elaina Moreno MD 909 [place] [address] Cardiovascular & Thoracic Surgery 08/06/20 Kelsi Hassan MD [address] [place] [address] 284 [place] [address] Assigned Pulmonology Provider 06/28/21 02/05/22 John Webb MD [address] [place] [address] Cardiovascular Disease 08/25/21 John Webb MD [address] [place] [address] Cardiovascular Disease 08/25/21 Estella Hassan, [facility] [address] [place] [address] Assigned MTM Pharmacist 09/05/21 Nav Hughes MD [address] [place] [address] Assigned Heart and Vascular Provider 10/31/21 09/03/23 Cassandra Mendoza MD ORTHOPAEDIC SURGERY [address] [address] Assigned Musculoskeletal Provider 10/31/21 08/13/22 Estella Hassan, [facility] [address] [place] [address] Assigned MTM Pharmacist 12/09/21 Mitra Kendall, [facility] Lead Cast Shell Grinder Primary Care - CC 01/26/2210/28 Lindsay Carey OD [address] [facility] [place] [address] Ophthalmology 01/29/22 Ravi Brownlee MD [address] [place] [address] 276 [place], [place] 793125 Assigned Pulmonology Provider 02/06/22 09/03/23 Arabella Fishman MA Financial Resource Worker 02/22/22 02/23/22 Richard Kam MD [address] [place] [address] [id number] Assigned Musculoskeletal Provider 08/14/22 [facility] [address] [facility] [address] [place] [phone] Pharmacist Pharmacist 11/22/22 01/09/23 [place] [address] [address] Assigned Neuroscience Provider 01/01/23 Rosemarie Mcdowell, RN Spice Cleaner Diabetes Education 03/17/23 Ravi Brownlee MD [address] [place] [address] 276 [place], [place] [address]785 Assigned Heart and Vascular Provider 09/04/23 01/03/24 Mitra Kendall, [facility] Lead Cast Shell Grinder Primary Care - CC 12/12/23 Lizet Mann PA-C 717 [place] [address] Assigned Cancer Care Provider 01/04/24 Ravi Brownlee MD 420 [facility] [address] [place], [place] 236745 Assigned Pulmonology Provider 01/04/24 Nav Hughes MD 6405 [facility]340 [place] 668285 Assigned Heart and Vascular Provider 01/04/24 Manuel Ahn OD 6341 [facility] SHANKAR RICHARDS 590252 Assignment Agent 01/05/24 Arabella Fishman MA Financial Resource Worker 01/06/24 [address] [facility] Pharmacist Pharmacy 01/26/24 documented as of this encounter
--- OUTSIDE RECORDS SUMMARY | 2024-01-31 20:12 | XMS_ITS | Encounter Summary ---
Author Organization [facility] Address [address] [place] [address] Care Team Providers Care Supervisor Advertising Dispatch Clerks Name Role Phone Va Glez MD Primary Care Provider Va Glez MD Unavailable Kerry Bernal RN Unavailable [phone] Ravi Barillas DPM Unavailable [phone] Christy Campuzano PA-C Unavailable Hans Cannon MD Unavailable [phone] Mitra Kendall SOLAR ENERGY SYSTEM INSTALLER Unavailable [phone] Burt Jovel MD Unavailable Estella Hassan [facility] Unavailable [phone] Reji Chavez MD Unavailable Josh Cordero MD, Madhuri Unavailable [phone] Josh Cordero MD, Madhuri Unavailable [phone] Kelsi Hassan MD Unavailable [phone] John Webb MD Unavailable John Webb MD Unavailable [phone] Estella Hassan [facility] Unavailable [phone] Nav Hughes MD Unavailable [phone] Cassandra Mendoza MD Unavailable Estella Hassan H Unavailable Mitra Kendall SOLAR ENERGY SYSTEM INSTALLER Unavailable [phone] Aurelio Lindsay Kenzie OD Unavailable [phone] Linthicum HeightsRavi bajwa MD Unavailable Arabella Fishman MA Unavailable [phone] Richard Kam MD Unavailable Marisol Patel [facility] Unavailable Gaby Vila DO Unavailable [phone] Rosemarie Mcdowell RN Unavailable [phone] Ravi Brownlee MD Unavailable Mitra Kendall SOLAR ENERGY SYSTEM INSTALLER Unavailable Lizet Mann PA-C Unavailable Ravi Brownlee MD Unavailable Nav Hughes MD Unavailable [phone] Manuel Ahn OD Unavailable Arabella Fishman MA Unavailable Thalia Charles [facility] Unavailable Unavailable Encounter Details Date Type Department Care Team (Late st Contact Info) Description 06/16/2020 MyC Medical Advice [facility] Mental Health & Addiction [address] [address] Nilsa Harper LICSW [address], [address] [place] [address] Social History Tobacco Use Types [...] and Family Not on file 05/31/2019 Attends Congregation Services Not on file 05/30 Active Member [...] Answer Date Recorded PHQ-2 Score 0 06/05/2020 [facility] [place] of Occupat ional Health - Occupational Stress [...] on file Legal 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 JUNIOR LEGAL SECRETARY Gender Identity Not on file Sexual Orientation Not on file Occupation Industry Job Start Date Job End Date Not on file Not on file Not on file Not on file COVID-19 Exposure Response Date Recorded In the last month, have you been in contact with someone who was confirmed or suspected to have Coronavirus / COVID-19? No / Unsure 06/12/2020 1:46 PM CDT documented as of this encounter Plan of Treatment Upcoming Encounters Date Type Department Care Team (Late st Contact Info) Description 02/01/2024 3:00 PM JUNIOR LEGAL SECRETARY Office Visit [facility] 6[address] [place] [phone] Manuel Ahn, [address] [place] [address] 02/02/2024 1:30 PM JUNIOR LEGAL SECRETARY Therapy Visit [facility] [address] [facility] [address] [place] [phone] Alicja Roldan, OT 9[address] [place] [address] 02/05/2024 8:00 PM JUNIOR LEGAL SECRETARY Therapy Visit [facility] [place] [address] [place] [address] [address] [place] [phone] 02/13/2024 4:30 PM JUNIOR LEGAL SECRETARY Oncology Visit [facility] 9[address] [place] [phone] Marian Agustin, ADOPTION MANAGER RECESSING MACHINE OPERATOR [address] [facility] [address] [place], [place] [address] 03/01/2024 7:00 AM JUNIOR LEGAL SECRETARY Office Visit [facility] [address] [place] [phone] Estella Hassan, [facility] [address] [place] [address] 03/23/2024 2:00 PM JUNIOR LEGAL SECRETARY Office Visit [facility] [address] [place] [address] Lizet Mann PA-C 717 [place] [address] 03/29/2024 3:30 PM JUNIOR LEGAL SECRETARY Office [facility] [address] [facility] [address] [place] [phone] Hakeem Chacko MBBS 2945 [place] [address] 05/03/2024 3:00 PM JUNIOR LEGAL SECRETARY Office Visit [facility] [address] [place] [phone] Gaurav Valenzuela, ADOPTION MANAGER [facility] [address] [place] [address] 05/22/2024 10:30 AM CDT Office Visit [address] [phone] Estella Hassan, [facility] [address] [place] [address] 05/22/2024 11:30 AM CDT Office Visit [address] [address] [place] [address] [place], [place] [phone] documented as of this encounter Visit Diagnoses Not on filedocumented in this encounter Additional Health Concerns Infection Onset Date Last Indicated Resolved Time Rule Out COVID-19 06/22/2021 06/22/2021 06/23/2021 8:58 PM CDT Rule Out COVID-19 01/22/2022 01/22/2022 01/24/2022 1:05 PM JUNIOR LEGAL SECRETARY Rule Out COVID-19 01/25/2022 01/25/2022 01/25/2022 5:21 AM JUNIOR LEGAL SECRETARY Influenza 01/25/2022 01/25/2022 02/01/2022 11:4 1 PM JUNIOR LEGAL SECRETARY Rule Out COVID-19 07/29/2022 07/29/2022 07/31/2022 11:17 AM CDT Rule Out COVID-19 03/23/2023 03/23/2023 03/23/2023 6:30 PM JUNIOR LEGAL SECRETARY COVID-19 03/23/2023 03/23/2023 04/13/2023 11:4 0 PM JUNIOR LEGAL SECRETARY Rule Out COVID-19 06/05/2023 06/05/2023 06/05/2023 5:53 PM CDT Rule Out COVID-19 11/06/2023 11/06/2023 11/06/2023 11:05 PM CDT Rule Out COVID-19 11/20/2023 11/20/2023 11/20/2023 6:43 PM CDT Rule Out COVID-19 12/27/2023 12/27/2023 12/29/2023 1:37 PM CDT Assessment Noted Time PHQ-9 Depression Total Score: 2 06/06/19 21 12:47 PM CDT documented as of this encounter Care Teams Supervisor Advertising Dispatch Clerks Relationship Specialty [place] [address] [place] [address] PCP - General Family Practice 07/11/14 [place] [address] [place] [address] Assigned PCP 12/16/11 Kerry Bernal, INOCENCIO Personal Advocate & Liaison (PAL) 01/08/19 07/10/23 Ravi Barillas DPM [address] [facility] [address] [place] [address] Assigned Musculoskeletal Provider 03/23/20 10/30/21 Christy Campuzano PA-C [address] [place] [address] [phone] Referring Physician Family Medicine 04/22/20 Hans Cannon MD [address] [place] [address] 059132 Resident Pulmonary Disease 04/22/20 Mitra Kendall, [facility] Lead Basket Operator Primary Care - CC 01/08/1901/12 Burt Jovel MD Internal Medicine 05/08/20 12/13/23 Estella Hassan, [facility] [address] [place], [place] [address] Pharmacist Pharmacist 05/26/20 Reji Chavez MD [address] [place] [phone] Assigned Heart and Vascular Provider 05/18/20 10/30/21 Elaina Moreno MD [address] [place] [address] Assigned Surgical Provider 05/18/20 11/19/22 Elaina Moreno MD 909 [place] [address] Cardiovascular & Thoracic Surgery 08/06/20 Kelsi Hassan MD [address] [place] [address] [facility] [address] [place] [address] Assigned Pulmonology Provider 06/28/21 02/05/22 John Webb MD [address] [place] [address] Cardiovascular Disease 08/25/21 John Webb MD [address] [place] [address] Cardiovascular Disease 08/25/21 Estella Hassan, [facility] [address] [place] [address] Assigned MTM Pharmacist 09/05/21 Nav Hughes MD [address] [place] [address] Assigned Heart and Vascular Provider 10/31/21 09/03/23 Cassandra Mendoza MD ORTHOPAEDIC SURGERY [facility] [address] [address] Assigned Musculoskeletal Provider 10/31/21 08/13/22 Estella Hassan, [facility] [address] [place] [address] Assigned MTM Pharmacist 12/09/21 Mitra Kendall, SOLAR ENERGY SYSTEM INSTALLER Lead Basket Operator Primary Care - CC 01/26/2210/28 [place] [address] [place] [address] [place] [address] Ophthalmology 01/29/22 Ravi Brownlee MD [address] [place] [address] 276 [place] [address] Assigned Pulmonology Provider 02/06/22 09/03/23 Arabella Fishman MA Financial Resource Worker 02/22/22 02/23/22 Richard Kam MD [address] [place] [address]145 Assigned Musculoskeletal Provider 08/14/22 [facility] [address] [place] [phone] Pharmacist Pharmacist 11/22/22 01/09/23 [place] [address] [address] Assigned Neuroscience Provider 01/01/23 Rosemarie Mcdowell, RN Clothing Man Diabetes Education 03/17/23 Ravi Brownlee MD [address] [place] [address] 203635 Assigned Heart and Vascular Provider 09/04/23 01/03/24 Mitra Kendall, SOLAR ENERGY SYSTEM INSTALLER Lead Basket Operator Primary Care - CC 12/12/23 Lizet Mann PA-C 717 [place] [address] Assigned Cancer Care Provider 01/04/24 Ravi Brownlee MD [address] [facility] [address] [facility] 276 [place], [place] 2[address] Assigned Pulmonology Provider 01/04/24 Nav Hughes MD 6405 [facility] [place] 290885 Assigned Heart and Vascular Provider 01/04/24 Manuel Ahn OD [address]341 [facility] [place] [address] Slot Router 01/05/24 Arabella Fishman MA Financial Resource Worker 01/06/24 Thalia Charles [facility] Pharmacist Pharmacy 01/26/24 documented as of this encounter
--- OUTSIDE RECORDS SUMMARY | 2024-01-31 20:12 | XMS_ITS | Encounter Summary ---
Author Organization [facility] Address [address] [place] [address] Care Team Providers Care Workers Compensation Consultant Name Role Phone Va Glez MD Primary Care Provider [phone] Va Glez MD Unavailable Kerry Bernal RN Unavailable [phone] Ravi Barillas DPM Unavailable [phone] Christy Campuzano PA-C Unavailable Hans Cannon MD Unavailable Mitra Kendall CIGAR SORTER Unavailable Burt Jovel MD Unavailable Estella Hassan [facility] Unavailable [phone] Reji Chavez MD Unavailable Josh Cordero MD, Madhuri Unavailable [phone] Josh oCrdero MD, Madhuri Unavailable [phone] Kelsi Hassan MD Unavailable [phone] John Webb MD Unavailable [phone] John Webb MD Unavailable Estella Hassan [facility] Unavailable Nav Hughes MD Unavailable [phone] Cassandra Mendoza MD Unavailable [phone] Estella Hassan [facility] Unavailable [phone] Mitra Kendall CIGAR SORTER Unavailable Lindsay Carey OD Unavailable ConwayRavi bajwa MD Unavailable Arabella Fishman MA Unavailable [phone] Richard Kam MD Unavailable Marisol Patel [facility] Unavailable [phone] Gaby Vila DO Unavailable Rosemarie Mcdowell RN Unavailable [phone] Ravi Brownlee MD Unavailable Mitra Kendall CIGAR SORTER Unavailable [phone] Lizet Mann PA-C Unavailable [phone] Ravi Brownlee MD Unavailable [phone] Nav Hughes MD Unavailable [phone] Manuel Ahn OD Unavailable [phone] Arabella Fishman MA Unavailable [phone] Thalia Charles [facility] Unavailable Unavailable Encounter Details Date Type Department Care Team (Late st Contact Info) Description 06/24/2020 Documentation Only INTERFACED REPORT Unknown, Provider Social History Tobacco Use Types Packs/Day Years [...] and Family Not on file 05/31/2019 Attends Jew Services Not on file 05/30 Active Member [...] Answer Date Recorded PHQ-2 Score 0 06/05/2020 [facility] of Occupat ional Health - [...] on file Legal 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 BAD CREDIT COLLECTOR Gender Identity Not on file Sexual Orientation Not on file Occupation Industry Job Start Date Job End Date Not on file Not on file Not on file Not on file COVID-19 Exposure Response Date Recorded In the last month, have you been in contact with someone who was confirmed or suspected to have Coronavirus / COVID-19? No / Unsure 06/23/2020 2:49 PM CDT documented as of this encounter Plan of Treatment Upcoming Encounters Date Type Department Care Team (Late st Contact Info) Description 02/01/2024 3:00 PM BAD CREDIT COLLECTOR [facility] [address] [facility] [phone] Manuel Ahn, [address] [facility] [place] [address] 02/02/2024 1:30 PM BAD CREDIT COLLECTOR Therapy Visit [facility] [place] [address] [facility] [address] [place] [phone] Alicja Roldan, OT 909 [place] [address] 02/05/2024 8:00 PM BAD CREDIT COLLECTOR Therapy Visit [facility] [place] 6[address] [facility] 103 [place] [phone] 02/13/2024 4:30 PM BAD CREDIT COLLECTOR Oncology Visit [facility] 909 [place] [phone] Marian Agustin, NESSA OVERCASTER [address] [facility] 207 [place] [address] 03/01/2024 7:00 AM BAD CREDIT COLLECTOR Office Visit [facility] [address]2019 [place] [phone] Estella Hassan, [facility] 3033 [place] [address] 03/23/2024 2:00 PM BAD CREDIT COLLECTOR Office Visit [facility] [address] [place] [phone] Lizet Mann PA-C 717 [place] [address] 03/29/2024 3:30 PM BAD CREDIT COLLECTOR Office Visit [facility] [address] [facility] [address] [place] [address] Hakeem Chcako MBBS 2945 [place] [address] 05/03/2024 3:00 PM BAD CREDIT COLLECTOR Office Visit [facility] [address] [phone] Gaurav Valenzuela APRN [address] [address] 05/22/2024 10:30 AM CDT Office Visit [address] [phone] Estella Hassan, [facility] 3033 [place] [address] 05/22/2024 11:30 AM CDT Office Visit [address] [phone] [place] [address] [place] [address] [phone] documented as of this encounter Visit Diagnoses Not on filedocumented in this encounter Additional Health Concerns Infection Onset Date Last Indicated Resolved Time Rule Out COVID-19 06/22/2021 06/22/2021 06/23/2021 8:58 PM CDT Rule Out COVID-19 01/22/2022 01/22/2022 01/24/2022 1:05 PM BAD CREDIT COLLECTOR Rule Out COVID-19 01/25/2022 01/25/2022 01/25/2022 5:21 AM BAD CREDIT COLLECTOR Influenza 01/25/2022 01/25/2022 02/01/2022 11:4 1 PM BAD CREDIT COLLECTOR Rule Out COVID-19 07/29/2022 07/29/2022 07/31/2022 11:17 AM CDT Rule Out COVID-19 03/23/2023 03/23/2023 03/23/2023 6:30 PM BAD CREDIT COLLECTOR COVID-19 03/23/2023 03/23/2023 04/13/2023 11:4 0 PM BAD CREDIT COLLECTOR Rule Out COVID-19 06/05/2023 06/05/2023 06/05/2023 5:53 PM CDT Rule Out COVID-19 11/06/2023 11/06/2023 11/06/2023 11:05 PM CDT Rule Out COVID-19 11/20/2023 11/20/2023 11/20/2023 6:43 PM CDT Rule Out COVID-19 12/27/2023 12/27/2023 12/29/2023 1:37 PM CDT Assessment Noted Time PHQ-9 Depression Total Score: 2 06/06/19 12:47 PM CDT documented as of this encounter Care Teams Workers Compensation Consultant Relationship Specialty [place] [address] [place] [address] PCP - General Family Practice 07/11/14 [place] [address] [place] [address] Assigned PCP 12/16/11 Kerry Bernal RN Personal Advocate & Liaison (PAL) 01/08/19 07/10/23 Ravi Barillas DPM [address] [facility] [address] [place] [address] Assigned Musculoskeletal Provider 1/10/21 8/19/22 Christy Campuzano PA-C [address] [place] [address] 939032 Referring Physician Family Medicine 04/22/20 Hans Cannon MD [address] [place] [address] Resident Pulmonary Disease 04/22/20 Mitra Kendall, [facility] Lead Sandwich Maker Primary Care - CC 01/08/1901/12 Burt Jovel MD Internal Medicine 05/08/20 12/13/23 [facility] 3033 [place] [address] Pharmacist Pharmacist 05/26/20 Reji Chavez MD [address] [facility]00 [place] [phone] Assigned Heart and Vascular Provider 05/18/20 10/30/21 Elaina Moreno MD [address] [place] [address] Assigned Surgical Provider 05/18/20 11/19/22 Elaina Moreno MD [address] [place] [address] Cardiovascular & Thoracic Surgery 08/06/20 Kelsi Hassan MD [address] [place] [address] [place] [address] Assigned Pulmonology Provider 06/28/21 02/05/22 John Webb MD [address] [address] Cardiovascular Disease 08/25/21 John Webb MD [address] [address] Cardiovascular Disease 08/25/21 Estella Hassan, [facility] [address] [place] [address] Assigned MTM Pharmacist 09/05/21 Nav Hughes MD [address] [place] [address] Assigned Heart and Vascular Provider 10/31/21 09/03/23 Cassandra Mendoza MD ORTHOPAEDIC SURGERY [facility] [place] [address] [address] Assigned Musculoskeletal Provider 10/31/21 08/13/22 Estella Hassan, [facility] [address] [place] [address] Assigned MTM Pharmacist 12/09/21 Mitra Kendall, [facility] Lead Sandwich Maker Primary Care - CC 01/26/2210/28 Lindsay Carey, ARA [address] [place] [address] [place] [address] MD Ophthalmology 01/29/22 Ravi Brownlee MD [address] [place] [address] Assigned Pulmonology Provider 02/06/22 09/03/23 Arabella Fishman MA Financial Resource Worker 02/22/22 02/23/22 Richard Kam MD [address] [place] [address] Assigned Musculoskeletal Provider 08/14/22 Marisol Patel, [facility] [address] [place], [place] [phone] Pharmacist Pharmacist 11/22/22 01/09/23 [place] [address] [address] Assigned Neuroscience Provider 01/01/23 Rosemarie Mcdowell, RN Packager Diabetes Education 03/17/23 Ravi Brownlee MD [address] [place] [address] Assigned Heart and Vascular Provider 09/04/23 01/03/24 Mitra Kendall, CIGAR SORTER Lead Sandwich Maker Primary Care - CC 12/12/23 Lizet Mann PA-C [address] [place] [address] Assigned Cancer Care Provider 01/04/24 Ravi Brownlee MD 420 [facility] [address] [place] [address] Assigned Pulmonology Provider 01/04/24 Nav Hughes MD 6405 [facility] [address] [place] [address] Assigned Heart and Vascular Provider 01/04/24 Manuel Ahn OD [address] [facility] [place] [address] Ssas Developer 01/05/24 Arabella Fishman MA Financial Resource Worker 01/06/24 Thalia Cahrles [facility] Pharmacist Pharmacy 01/26/24 documented as of this encounter
--- OUTSIDE RECORDS SUMMARY | 2024-01-31 20:12 | XMS_ITS | Encounter Summary ---
Author Organization [facility] Address [address] [place] [address] Care Team Providers Care Real Estate Services Administrator Name Role Phone Va Glez MD Primary Care Provider [phone] Va Glez MD Unavailable Kerry Bernal RN Unavailable [phone] Ravi Barillas DPM Unavailable [phone] Christy Campuzano PA-C Unavailable Hans Cannon MD Unavailable [phone] Mitra Kendall STONEMASON APPRENTICE Unavailable [phone] Burt Jovel MD Unavailable Estella Hassan [facility] Unavailable Reji Chavez MD Unavailable Josh Cordero MD, Madhuri Unavailable [phone] Josh Cordero MD, Madhuri Unavailable [phone] Kelsi Hassan MD Unavailable [phone] John Webb MD Unavailable John Webb MD Unavailable [phone] Estella Hassan [facility] Unavailable [phone] Nav Hughes MD Unavailable [phone] Cassandra Mendoza MD Unavailable Estella Hassan H Unavailable Mitra Kendall STONEMASON APPRENTICE Unavailable Aurelio Lindsay Kenzie OD Unavailable Ravi Brownlee MD Unavailable Arabella Fishman MA Unavailable [phone] Richard Kam MD Unavailable Marisol Patel [facility] Unavailable Gaby Vila DO Unavailable Rosemarie Mcdowell RN Unavailable Ravi Brownlee MD Unavailable Mitra Kendall STONEMASON APPRENTICE Unavailable Lizet Mann PA-C Unavailable Ravi Brownlee MD Unavailable Nav Hughes MD Unavailable [phone] Manuel Ahn OD Unavailable Arabella Fishman MA Unavailable [phone] Thalia Charles [facility] Unavailable Unavailable Encounter Details Date Type Department Care Team (Late st Contact Info) Description 06/24/2020 [facility] [address] [place] [phone] Elaina Moreno MD [address] [place] [address] Social History Tobacco Use Types Packs/Day [...] and Family Not on file 05/31/2019 Attends [employer] Services Not on file 05/30 Active Member [...] Answer Date Recorded PHQ-2 Score 0 06/05/2020 [facility] - Occupational Stress [...] on file Legal 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 INTERNET APPLICATION DEVELOPER Gender Identity Not on file Sexual [...] st Contact Info) Description 02/01/2024 3:00 PM INTERNET APPLICATION DEVELOPER Office Visit [facility] [address] [place] [phone] Manuel Ahn, [address] [place] [address] 02/02/2024 1:30 PM INTERNET APPLICATION DEVELOPER Therapy Visit [facility] [address] [facility] [address] [place] [phone] Alicja Roldan OT 909 [place] [address] 02/05/2024 8:00 PM INTERNET APPLICATION DEVELOPER Therapy Visit [facility] [address] [place] [phone] 02/13/2024 4:30 PM INTERNET APPLICATION DEVELOPER Oncology Visit [facility] 9[address] [place] [phone] Marian Agustin, NESSA ELECTROENCEPHALOGRAM TECHNOLOGIST [address] [facility] 207 [place], [place] [address] 03/01/2024 7:00 AM INTERNET APPLICATION DEVELOPER Office Visit [facility] [address] [place] [phone] Estella Hassan, [facility] 30[address] [place] [address] 03/23/2024 2:00 PM INTERNET APPLICATION DEVELOPER Office Visit [facility] [address] [place] [address] Lizet Mann PA-C 717 [place] [address] 03/29/2024 3:30 PM INTERNET APPLICATION DEVELOPER Office Visit [facility] [address] [facility] 200 [place] [phone] Hakeem Chacko MBBS 2945 [place] [address] 05/03/2024 3:00 PM INTERNET APPLICATION DEVELOPER Office Visit [facility] [address] [place] [phone] Gaurav Valenzuela, TURNING MACHINE SET UP OPERATOR [facility] [address] [place] [address] 434074 05/22/2024 10:30 AM CDT Office Visit [address] [phone] Estella Hassan, [facility] [address] [place] [address] 05/22/2024 11:30 AM CDT Office Visit [address] [address] Va Glez MD [address] [place] [address] [phone] documented as of this encounter Visit Diagnoses Not on filedocumented in this encounter Additional Health Concerns Infection Onset Date Last Indicated Resolved Time Rule Out COVID-19 06/22/2021 06/22/2021 06/23/2021 8:58 PM CDT Rule Out COVID-19 01/22/2022 01/22/2022 01/24/2022 1:05 PM INTERNET APPLICATION DEVELOPER Rule Out COVID-19 01/25/2022 01/25/2022 01/25/2022 5:21 AM INTERNET APPLICATION DEVELOPER Influenza 01/25/2022 01/25/2022 02/01/2022 11:4 1 PM INTERNET APPLICATION DEVELOPER Rule Out COVID-19 07/29/2022 07/29/2022 07/31/2022 11:17 AM CDT Rule Out COVID-19 03/23/2023 03/23/2023 03/23/2023 6:30 PM INTERNET APPLICATION DEVELOPER COVID-19 03/23/2023 03/23/2023 04/13/2023 11:4 0 PM INTERNET APPLICATION DEVELOPER Rule Out COVID-19 06/05/2023 06/05/2023 06/05/2023 5:53 PM CDT Rule Out COVID-19 11/06/2023 11/06/2023 11/06/2023 11:05 PM CDT Rule Out COVID-19 11/20/2023 11/20/2023 11/20/2023 6:43 PM CDT Rule Out COVID-19 12/27/2023 12/27/2023 12/29/2023 1:37 PM CDT Assessment Noted Time PHQ-9 Depression Total Score: 2 06/06/19 21 12:47 PM CDT documented as of this encounter Care Teams Real Estate Services Administrator Relationship Specialty [place] [address] [place] [address] PCP - General Family Practice 07/11/14 [place] [address] [place] [address] Assigned PCP 12/16/11 Kerry Bernal RN Personal Advocate & Liaison (PAL) 01/08/19 07/10/23 Ravi Barillas DPM [address] [facility] [address] [place] [address] Assigned Musculoskeletal Provider 03/23/20 10/30/21 Christy Campuzano PA-C [address] [place] [address] [phone] Referring Physician Family Medicine 04/22/20 Hans Cannon MD [address] [place] [address] 168102 Resident Pulmonary Disease 04/22/20 Mitra Kendall, [facility] Lead Draw Tender Primary Care - CC 01/08/1901/12 Burt Jovel MD Internal Medicine 05/08/20 12/13/23 Estella Hassan, [facility] [address] [place], [place] [address]116 Pharmacist Pharmacist 05/26/20 Reji Chavez MD [address] [place] [phone] Assigned Heart and Vascular Provider 05/18/20 10/30/21 Elaina Moreno MD [address] [place] [address] Assigned Surgical Provider 05/18/20 11/19/22 Elaina Moreno MD 909 [place] [address] Cardiovascular & Thoracic Surgery 08/06/20 Kelsi Hassan MD [address] [place] [address] 284 [place] [address] Assigned Pulmonology Provider 06/28/21 02/05/22 John Webb MD [address] [place] [address] Cardiovascular Disease 08/25/21 John Webb MD [address] [place] [address] Cardiovascular Disease 08/25/21 Estella Hassan, [facility] 30[address] [place] [address] Assigned MTM Pharmacist 09/05/21 Nav Hughes MD [address] [place] [address] Assigned Heart and Vascular Provider 10/31/21 09/03/23 Cassandra Mendoza MD ORTHOPAEDIC SURGERY [address] [address] Assigned Musculoskeletal Provider 10/31/21 08/13/22 Estella Hassan, [facility] [address] [place] [address] Assigned MTM Pharmacist 12/09/21 Mitra Kendall, [facility] Lead Draw Tender Primary Care - CC 01/26/2210/28 Lindsay Carey OD [address] [facility] [place] [address] Ophthalmology 01/29/22 Ravi Brownlee MD [address] [place] [address] 276 [place], [place] [phone] Assigned Pulmonology Provider 02/06/22 09/03/23 Arabella Fishman MA Financial Resource Worker 02/22/22 02/23/22 Richard Kam MD [address] [place] [address] 544915 Assigned Musculoskeletal Provider 08/14/22 [facility] [address] [facility] [address] [place] [phone] Pharmacist Pharmacist 11/22/22 01/09/23 [place] [address] [address] Assigned Neuroscience Provider 01/01/23 Rosemarie Mcdowell, RN Business Analyst Project Manager Diabetes Education 03/17/23 Ravi Brownlee MD [address] [place] [address] 276 [place], [place] 123195 Assigned Heart and Vascular Provider 09/04/23 01/03/24 Mitra Kendall, [facility] Lead Draw Tender Primary Care - CC 12/12/23 Lizet Mann PA-C 717 [place] [address] Assigned Cancer Care Provider 01/04/24 Ravi Brownlee MD [address] [facility] [address] [place], [place] 227[address] Assigned Pulmonology Provider 01/04/24 Nav Hughes MD [address] [facility] [place] [place] 788895 Assigned Heart and Vascular Provider 01/04/24 Manuel Ahn OD [address] [facility] [address]ICH[address]DS 880842 Inspection Manager 01/05/24 Arabella Fishman MA Financial Resource Worker 01/06/24 Thalia Charles [facility] Pharmacist Pharmacy 01/26/24 documented as of this encounter
--- OUTSIDE RECORDS SUMMARY | 2024-01-31 20:12 | XMS_ITS | Encounter Summary ---
Author Organization [facility] Address [address] [place] [address] Care Team Providers Care Composite Engineer Name Role Phone aV Glez MD Primary Care Provider Va Glez MD Unavailable Kerry Bernal RN Unavailable [phone] Ravi Barillas DPM Unavailable [phone] Christy Campuzano PA-C Unavailable [phone] Hans Cannon MD Unavailable [phone] Mitra Kendall OUTSIDE MACHINIST Unavailable [phone] Burt Jovel MD Unavailable [phone] Estella Hassan [facility] Unavailable Reji Chavez MD Unavailable Josh Cordero MD, Madhuri Unavailable [phone] Josh Cordero MD, Madhuri Unavailable [phone] Kelsi Hassan MD Unavailable [phone] John Webb MD Unavailable John Webb MD Unavailable Estella Hassan [facility] Unavailable Nav Hughes MD Unavailable [phone] Cassandra Mendoza MD Unavailable Estella Hassan [facility] Unavailable Mitra Kendall OUTSIDE MACHINIST Unavailable [phone] Lindsay Carye OD Unavailable [place]attle[place]Ravi bajwa MD Unavailable [phone] Arabella Fishman MA Unavailable [phone] Richard Kam MD Unavailable Marisol Patel [facility] Unavailable Gaby Vila DO Unavailable Rosemarie Mcdowell RN Unavailable Ravi Brownlee MD Unavailable [phone] Mitra Kendall OUTSIDE MACHINIST Unavailable Lizet Mann PA-C Unavailable Ravi Brownlee MD Unavailable [phone] Nav Hughes MD Unavailable [phone] Manuel Ahn OD Unavailable Arabella Fishman MA Unavailable [phone] Thalia Charles [facility] Unavailable Unavailable Encounter Details Date Type Department Care Team (Late st Contact Info) Description 06/24/2020 [facility] [address] [address] Estella Hassan, [facility] 30[address] [place] [address] Morbid obesity due to excess calories (H) (Primary Dx) Social History Tobacco Use Types [...] and Family Not on file 05/31/2019 Attends [employer] Services Not on file 05/30 Active Member [...] Answer Date Recorded PHQ-2 Score 0 06/05/2020 [facility] - Occupational [...] on file Legal 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 GENERAL ADJUSTER Gender Identity Not on file Sexual Orientation [...] st Contact Info) Description 02/01/2024 3:00 PM GENERAL ADJUSTER Office Visit [facility] [address] [place] [phone] Manuel Ahn [address] [place] [address] 02/02/2024 1:30 PM GENERAL ADJUSTER Therapy Visit [facility] [address] [facility] [address] [place] [phone] Alicja Roldan, OT 909 [place] [address] 02/05/2024 8:00 PM GENERAL ADJUSTER Therapy Visit [facility] [place] [address] [place] [address] 103 [place] [phone] 02/13/2024 4:30 PM GENERAL ADJUSTER Oncology Visit [facility] 909 [place] [phone] Marian Agustin, NESSA HEADING AND PRIMING TOOL SETTER [address] [facility] 207 [place], [place] 6[address] 03/01/2024 7:00 AM GENERAL ADJUSTER Office Visit [facility] [address] [place] [address] Estella Hassan, [facility] 30[address] [place] [address] 03/23/2024 2:00 PM GENERAL ADJUSTER Office Visit [facility] [address] [place] [address] [place] [address] Lizet Mann PA-C [address] [place] [address] 03/29/2024 3:30 PM GENERAL ADJUSTER Office Visit [facility] 2945 [facility] 200 [place] [phone] Hakeem Chacko MBBS 2945 [place] [address] 05/03/2024 3:00 PM GENERAL ADJUSTER Office Visit [facility] [address] [place] [phone] Gaurav Valenzuela, NESSA [address] [address] 05/22/2024 10:30 AM CDT Office Visit [address] [phone] Estella Hassan, [place] [address] [place] [address] 05/22/2024 11:30 AM CDT Office Visit [address] [phone] Va Glez MD [address] [place] [address] [phone] documented as of this encounter Visit Diagnoses Diagnosis Morbid obesity due to excess calories (H)- Primary documented in this encounter Additional Health Concerns Infection Onset Date Last Indicated Resolved Time Rule Out COVID-19 06/22/2021 06/22/2021 06/23/2021 8:58 PM CDT Rule Out COVID-19 01/22/2022 01/22/2022 01/24/2022 1:05 PM GENERAL ADJUSTER Rule Out COVID-19 01/25/2022 01/25/2022 01/25/2022 5:21 AM GENERAL ADJUSTER Influenza 01/25/2022 01/25/2022 02/01/2022 11:4 1 PM GENERAL ADJUSTER Rule Out COVID-19 07/29/2022 07/29/2022 07/31/2022 11:17 AM CDT Rule Out COVID-19 03/23/2023 03/23/2023 03/23/2023 6:30 PM GENERAL ADJUSTER COVID-19 03/23/2023 03/23/2023 04/13/2023 11:4 0 PM GENERAL ADJUSTER Rule Out COVID-19 06/05/2023 06/05/2023 06/05/2023 5:53 PM CDT Rule Out COVID-19 11/06/2023 11/06/2023 11/06/2023 11:05 PM CDT Rule Out COVID-19 11/20/2023 11/20/2023 11/20/2023 6:43 PM CDT Rule Out COVID-19 12/27/2023 12/27/2023 12/29/2023 1:37 PM CDT Assessment Noted Time PHQ-9 Depression Total Score: 2 06/06/19 21 12:47 PM CDT documented as of this encounter Care Teams Composite Engineer Relationship Specialty [place] [address] [place] [address] PCP - General Family Practice 07/11/14 [place] [address] [place] [address] Assigned PCP 12/16/11 Kerry Bernal RN Personal Advocate & Liaison (PAL) 01/08/19 07/10/23 Ravi Barillas DPM [address] [facility] [address] [place] [address] Assigned Musculoskeletal Provider 03/23/20 10/30/21 Christy Campuzano PA-C [address] [place] [address] [id number] Referring Physician Family Medicine 04/22/20 Hans Cannon MD [address] [place] [address] 134382 Resident Pulmonary Disease 04/22/20 Mitra Kendall, [facility] Lead Exercise Instructor Primary Care - CC 01/08/1901/12 Burt Jovel MD Internal Medicine 05/08/20 12/13/23 Estella Hassan, [facility] [address] [place], [place] [address] Pharmacist Pharmacist 05/26/20 Reji Chavez MD [address] [place] [phone] Assigned Heart and Vascular Provider 05/18/20 10/30/21 Elaina Moreno MD [address] [place] [address] [phone] Assigned Surgical Provider 05/18/20 11/19/22 Elaina Moreno MD 909 [place] [address] Cardiovascular & Thoracic Surgery 08/06/20 Kelsi Hassan MD [address] [place] [address] [facility] [address] [place] [address] Assigned Pulmonology Provider 06/28/21 02/05/22 John Webb MD [address] [id number] Cardiovascular Disease 08/25/21 John Webb MD [address] 745535 Cardiovascular Disease 08/25/21 Estella Hassan, [facility] 3033 [place] [address] Assigned MTM Pharmacist 09/05/21 Nav Hughes MD [address] [place] 265965 Assigned Heart and Vascular Provider 10/31/21 09/03/23 Cassandra Mendoza MD ORTHOPAEDIC SURGERY [address] [address] Assigned Musculoskeletal Provider 10/31/21 08/13/22 Estella Hassan, [facility] [address] [place] [address] Assigned MTM Pharmacist 12/09/21 Mitra Kendall, OUTSIDE MACHINIST Lead Exercise Instructor Primary Care - CC 01/26/2210/28 Lindsay Carey OD [address] [facility] [place] [address] Ophthalmology 01/29/22 Ravi Brownlee MD [address] [place] [address] 914755 Assigned Pulmonology Provider 02/06/22 09/03/23 Arabella Fishman MA Financial Resource Worker 02/22/22 02/23/22 Richard Kam MD [address] [place] [address] 080565 Assigned Musculoskeletal Provider 08/14/[address] [facility] [address] [facility] [address] [place] [phone] Pharmacist Pharmacist 11/22/22 01/09/23 [place] [address] 313[address] Assigned Neuroscience Provider 01/01/23 Rosemarie Mcdowell, RN Surgical Instrument Technician Diabetes Education 03/17/23 Ravi Brownlee MD [address] [place] [address] 873025 Assigned Heart and Vascular Provider 09/04/23 01/03/24 Mitra Kendall LSW Lead Exercise Instructor Primary Care - CC 12/12/23 Lizet Mann PA-C 717 [place], [place] 549265 Assigned Cancer Care Provider 01/04/24 Ravi Brownlee MD 420 [facility] 276 [place], [place] 642865 Assigned Pulmonology Provider 01/04/24 Nav Hughes MD [address] [place] [address] [place] 311185 Assigned Heart and Vascular Provider 01/04/24 Manuel Ahn OD [address] [facility] [place] 427822 Psychiatric Clinician 01/05/24 Arabella Fishman MA Financial Resource Worker 01/06/24 Thalia Charles [facility] Pharmacist Pharmacy 01/26/24 documented as of this encounter
--- OUTSIDE RECORDS SUMMARY | 2024-01-31 20:12 | XMS_ITS | Encounter Summary ---
Author Organization [place] Address [address] [place] [address] Care Team Providers Care Wildlife Veterinarian Name Role Phone Va Glez MD Primary Care Provider [phone] Va Glez MD Unavailable Kerry Bernal RN Unavailable [phone] Ravi Barillas DPM Unavailable [phone] Christy Campuzano PA-C Unavailable [phone] Hans Cannon MD Unavailable Mitra Kendall NURSE NAVIGATOR Unavailable Burt Jovel MD Unavailable Estella Hassan [facility] Unavailable Reji Chavez MD Unavailable Josh Cordero MD, Madhuri Unavailable [phone] Josh Cordero MD, Madhuri Unavailable [phone] Kelsi Hassan MD Unavailable [phone] John Webb MD Unavailable [phone] John Webb MD Unavailable Estella Hassan [facility] Unavailable [phone] Nav Hughes MD Unavailable [phone] Cassandra Mendoza MD Unavailable Estella Hassan [facility] Unavailable [phone] Mitra Kendall NURSE NAVIGATOR Unavailable [phone] Lindsay Carey OD Unavailable [place]itosRavi bajwa MD Unavailable Arabella Fishman MA Unavailable [phone] Richard Kam MD Unavailable Marisol Patel [facility] Unavailable Gaby Vila DO Unavailable [phone] Rosemarie Mcdowell RN Unavailable Ravi Brownlee MD Unavailable Mitra Kendall NURSE NAVIGATOR Unavailable [phone] Lizet Mann PA-C Unavailable Ravi Brownlee MD Unavailable [phone] Nav Hughes MD Unavailable [phone] Manuel Ahn OD Unavailable [phone] Arabella Fishman MA Unavailable [phone] Thalia Charles [facility] Unavailable Unavailable Encounter Details Date Type Department Care Team (Late st Contact Info) Description 07/06/2020 [facility] Medical Advice [address] [address] Estella Hassan, [facility] [address] [place] [address] Social History Tobacco Use Types Packs/Day Years [...] and Family Not on file 05/31/2019 Attends Christianity Services Not on file 05/30 Active Member [...] Answer Date Recorded PHQ-2 Score 0 06/05/2020 [facility] Occupat ional Health - [...] on file Legal 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 WEATHERIZATION TECHNICIAN Gender Identity Not on file Sexual [...] st Contact Info) Description 02/01/2024 3:00 PM WEATHERIZATION TECHNICIAN Office Visit [facility] [address] [place] [phone] Manuel Ahn, [address] [place] [address] 02/02/2024 1:30 PM WEATHERIZATION TECHNICIAN Therapy Visit [facility] [address] [facility] [address] [place] [phone] Alicja Roldan OT [address] [place] [address] 02/05/2024 8:00 PM WEATHERIZATION TECHNICIAN Therapy Visit [facility] [address] [place] [phone] 02/13/2024 4:30 PM WEATHERIZATION TECHNICIAN Oncology Visit [facility] [address] [place] [phone] Marian Agustin, NESSA HOG SCALDER [address] [facility] [address] [place], [place] [address] 03/01/2024 7:00 AM WEATHERIZATION TECHNICIAN Office Visit [facility] [address] [place] [phone] Estella Hassan, [facility] [address] [place] [address] 03/23/2024 2:00 PM WEATHERIZATION TECHNICIAN Office Visit [facility] [address] [facility] [address] [place] [address] Lizet Mann PA-C 717 [place] [address] 03/29/2024 3:30 PM WEATHERIZATION TECHNICIAN Office Visit [facility] [address] [facility] 200 [place] [phone] Hakeem Chacko MBBS [address] [place] [address] 05/03/2024 3:00 PM WEATHERIZATION TECHNICIAN Office Visit [facility] [address] [place] [phone] Gaurav Valenzuela, LOAN DOCUMENTS CLOSER [address] [address]35[address] 05/22/2024 10:30 AM CDT Office Visit [address] [phone] [facility] [address] [place] [address] 05/22/2024 11:30 AM CDT Office Visit [address] [address] Va Glez MD [address] [place] [address] [phone] documented as of this encounter Visit Diagnoses Not on filedocumented in this encounter Additional Health Concerns Infection Onset Date Last Indicated Resolved Time Rule Out COVID-19 06/22/2021 06/22/2021 06/23/2021 8:58 PM CDT Rule Out COVID-19 01/22/2022 01/22/2022 01/24/2022 1:05 PM WEATHERIZATION TECHNICIAN Rule Out COVID-19 01/25/2022 01/25/2022 01/25/2022 5:21 AM WEATHERIZATION TECHNICIAN Influenza 01/25/2022 01/25/2022 02/01/2022 11:4 1 PM WEATHERIZATION TECHNICIAN Rule Out COVID-19 07/29/2022 07/29/2022 07/31/2022 11:17 AM CDT Rule Out COVID-19 03/23/2023 03/23/2023 03/23/2023 6:30 PM WEATHERIZATION TECHNICIAN COVID-19 03/23/2023 03/23/2023 04/13/2023 11:4 0 PM WEATHERIZATION TECHNICIAN Rule Out COVID-19 06/05/2023 06/05/2023 06/05/2023 5:53 PM CDT Rule Out COVID-19 11/06/2023 11/06/2023 11/06/2023 11:05 PM CDT Rule Out COVID-19 11/20/2023 11/20/2023 11/20/2023 6:43 PM CDT Rule Out COVID-19 12/27/2023 12/27/2023 12/29/2023 1:37 PM CDT Assessment Noted Time PHQ-9 Depression Total Score: 2 06/06/19 12:47 PM CDT documented as of this encounter Care Teams Wildlife Veterinarian Relationship Specialty [place] [address] [place] [address] PCP - General Family Practice 07/11/14 [place] [address] [place] [address] Assigned PCP 12/16/11 Kerry Bernal, INOCENCIO Personal Advocate & Liaison (PAL) 01/08/19 07/10/23 Ravi Barillas DPM [address] [facility] [address] [place] [address] Assigned Musculoskeletal Provider 03/23/20 10/30/21 Christy Campuzano PA-C [address] [place] [address] [id number] Referring Physician Family Medicine 04/22/20 Hans Cannon MD [address] [place] [address] [id number] Resident Pulmonary Disease 04/22/20 Mitra Kendall, [facility] Lead Threading Machine Operator Primary Care - CC 01/08/1901/12 Burt Jovel MD Internal Medicine 05/08/20 12/13/23 Estella Hassan, [facility] [address] [place], [place] 227166 Pharmacist Pharmacist 05/26/20 Reji Chavez MD [address] [place] [phone] Assigned Heart and Vascular Provider 05/18/20 10/30/21 Elaina Moreno MD [address] [place] [address] Assigned Surgical Provider 05/18/20 11/19/22 Elaina Moreno MD [address] [place] [address] Cardiovascular & Thoracic Surgery 08/06/20 Kelsi Hassan MD [address] [place] [address] [address] [place] [address] Assigned Pulmonology Provider 06/28/21 02/05/22 John Webb MD [address] [place] [address] Cardiovascular Disease 08/25/21 John Webb MD [address] [place] [address] Cardiovascular Disease 08/25/21 Estella Hassan, [facility] [address] [place] [address] Assigned MTM Pharmacist 09/05/21 Nav Hughes MD [address] [place] [address] Assigned Heart and Vascular Provider 10/31/21 09/03/23 Cassandra Mendoza MD ORTHOPAEDIC SURGERY [address] [address] Assigned Musculoskeletal Provider 10/31/21 08/13/22 Estella Hassan, [facility] [address] [place] [address] Assigned MTM Pharmacist 12/09/21 Mitra Kendall, [facility] Lead Threading Machine Operator Primary Care - CC 01/26/2210/28 Lindsay Carey OD [address] [facility] [address] Ophthalmology 01/29/22 Ravi Brownlee MD [address] [place] [address] [address] [place], [place] [address] Assigned Pulmonology Provider 02/06/22 09/03/23 Arabella Fishman MA Financial Resource Worker 02/22/22 02/23/22 Richard Kam MD [address] [place] [address] [phone] Assigned Musculoskeletal Provider 08/14/22 [facility] [address] [facility] [address] [place] [phone] Pharmacist Pharmacist 11/22/22 01/09/23 [place] [address] [address] Assigned Neuroscience Provider 01/01/23 Rosemarie Mcdowell, RN Bead Wrapper Diabetes Education 03/17/23 Ravi Brownlee MD [address] [place] [address] [address] [place], [place] 3637[address] Assigned Heart and Vascular Provider 09/04/23 01/03/24 Mitra Kendall, NURSE NAVIGATOR Lead Threading Machine Operator Primary Care - CC 12/12/23 Lizet Mann PA-C [address] [place], [place] 267625 Assigned Cancer Care Provider 01/04/24 Ravi rBownlee MD [address] [facility] [address] [place], [place] 510[address] Assigned Pulmonology Provider 01/04/24 Nav Hughes MD [address] [facility] [address] [place] [id number] Assigned Heart and Vascular Provider 01/04/24 Manuel Ahn OD [address] [facility] SHANKAR RICHARDS 618762 Manager Outpatient 01/05/24 Arabella Fishman MA Financial Resource Worker 01/06/24 Thalia Charles Anabel Pharmacist Pharmacy 01/26/24 documented as of this encounter
--- OUTSIDE RECORDS SUMMARY | 2024-01-31 20:12 | XMS_ITS | Encounter Summary ---
Author Organization [place] Address [address] [place] [address] Care Team Providers Care Industrial Eng Name Role Phone Va Glez MD Primary Care Provider [phone] Va Glez MD Unavailable Kerry Bernal RN Unavailable [phone] Ravi Barillas DPM Unavailable [phone] Christy Campuzano PA-C Unavailable Hans Cannon MD Unavailable Mitra Kendall PEDIATRIC PSYCHIATRIST Unavailable [phone] Burt Jovel MD Unavailable Estella Hassan [facility] Unavailable Reji Chavez MD Unavailable Josh Cordero MD, Madhuri Unavailable [phone] Josh Cordero MD, Madhuri Unavailable [phone] Kelsi Hassan MD Unavailable [phone] John Webb MD Unavailable John Webb MD Unavailable Estella Hassan [facility] Unavailable Nav Hughes MD Unavailable [phone] Cassandra Mendoza MD Unavailable Estella Hassan [facility] Unavailable [phone] Mitra Kendall PEDIATRIC PSYCHIATRIST Unavailable Lindsay Carey OD Unavailable Sainte GenevieveRavi bajwa MD Unavailable [phone] Arabella Fishman MA Unavailable [phone] Richard Kam MD Unavailable Marisol Patel [facility] Unavailable [phone] Gaby Vila DO Unavailable [phone] Rosemarie Mcdowell RN Unavailable [phone] Ravi Brownlee MD Unavailable Mitra Kendall PEDIATRIC PSYCHIATRIST Unavailable Lizet Mann PA-C Unavailable Ravi Brownlee MD Unavailable [phone] Nav Hughes MD Unavailable [phone] Manuel Ahn OD Unavailable [phone] Arabella Fishman MA Unavailable [phone] Thalia Charles [facility] Unavailable Unavailable Encounter Details Date Type Department Care Team (Late st Contact Info) Description 06/24/2020 [facility] Medical Advice [address] [address] Estella Hassan, [facility] [address] [place] [address] Social History Tobacco Use Types Packs/Day Years [...] Answer Date Recorded PHQ-2 Score 0 06/05/2020 [facility] of Occupat ional Health - [...] on file Legal 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 SYSTEMS DEVELOPMENT CONSULTANT Gender Identity Not on file Sexual [...] st Contact Info) Description 02/01/2024 3:00 PM SYSTEMS DEVELOPMENT CONSULTANT Office Visit [facility] [address] [place] [phone] Manuel Ahn, [address] [place] [address] 02/02/2024 1:30 PM SYSTEMS DEVELOPMENT CONSULTANT Therapy Visit [facility] [address] [facility] [address] [place] [phone] Alicja Roldan OT 909 [place] [address] 02/05/2024 8:00 PM SYSTEMS DEVELOPMENT CONSULTANT Therapy Visit [facility] [address] [place] [phone] 02/13/2024 4:30 PM SYSTEMS DEVELOPMENT CONSULTANT Oncology Visit [facility] 9[address] [place] [phone] Marian Agustin, NESSA WEATHER ANALYST [address] [facility] [address] [place], [place] [address] 03/01/2024 7:00 AM SYSTEMS DEVELOPMENT CONSULTANT Office Visit [facility] [address] [place] [phone] Estella Hassan, [facility] [address] [place] [address] 03/23/2024 2:00 PM SYSTEMS DEVELOPMENT CONSULTANT Office Visit [facility] [address] [facility] [place] [address] Lizet Mann PA-C 717 [place] [address] 03/29/2024 3:30 PM SYSTEMS DEVELOPMENT CONSULTANT Office Visit [facility] [address] [facility] 200 [place] [phone] Hakeem Chacko MBBS 2945 [place] [address] 05/03/2024 3:00 PM SYSTEMS DEVELOPMENT CONSULTANT Office Visit [facility] [address] [place] [address] Gaurav Valenzuela, ELECTRIC SEALING MACHINE OPERATOR [address] [address] 05/22/2024 10:30 AM CDT Office Visit [address] [phone] [facility] [address] [place] [address] 05/22/2024 11:30 AM CDT Office Visit [address] [address] Va Glez MD [address] [place] [address] [phone] documented as of this encounter Visit Diagnoses Not on filedocumented in this encounter Additional Health Concerns Infection Onset Date Last Indicated Resolved Time Rule Out COVID-19 06/22/2021 06/22/2021 06/23/2021 8:58 PM CDT Rule Out COVID-19 01/22/2022 01/22/2022 01/24/2022 1:05 PM SYSTEMS DEVELOPMENT CONSULTANT Rule Out COVID-19 01/25/2022 01/25/2022 01/25/2022 5:21 AM SYSTEMS DEVELOPMENT CONSULTANT Influenza 01/25/2022 01/25/2022 02/01/2022 11:4 1 PM SYSTEMS DEVELOPMENT CONSULTANT Rule Out COVID-19 07/29/2022 07/29/2022 07/31/2022 11:17 AM CDT Rule Out COVID-19 03/23/2023 03/23/2023 03/23/2023 6:30 PM SYSTEMS DEVELOPMENT CONSULTANT COVID-19 03/23/2023 03/23/2023 04/13/2023 11:4 0 PM SYSTEMS DEVELOPMENT CONSULTANT Rule Out COVID-19 06/05/2023 06/05/2023 06/05/2023 5:53 PM CDT Rule Out COVID-19 11/06/2023 11/06/2023 11/06/2023 11:05 PM CDT Rule Out COVID-19 11/20/2023 11/20/2023 11/20/2023 6:43 PM CDT Rule Out COVID-19 12/27/2023 12/27/2023 12/29/2023 1:37 PM CDT Assessment Noted Time PHQ-9 Depression Total Score: 2 06/06/19 12:47 PM CDT documented as of this encounter Care Teams Industrial Eng Relationship Specialty [place] [address] [place] [address] PCP - General Family Practice 07/11/14 [place] [address] [place] [address] Assigned PCP 12/16/11 Kerry Bernal, INOCENCIO Personal Advocate & Liaison (PAL) 01/08/19 07/10/23 Ravi Barillas DPM [address] [facility] [address] [place] [address] Assigned Musculoskeletal Provider 03/23/20 10/30/21 Christy Campuzano PA-C [address] [place] [address] [phone] Referring Physician Family Medicine 04/22/20 Hans Cannon MD [address] [place] [address] [id number] Resident Pulmonary Disease 04/22/20 Mitra Kendall, [facility] Lead Plate Corrector Primary Care - CC 01/08/1901/12 Burt Jovel MD Internal Medicine 05/08/20 12/13/23 Estella Hassan, [facility] [address] [place], [place] [address] Pharmacist Pharmacist 05/26/20 Reji Chavez MD [address] [place] [phone] Assigned Heart and Vascular Provider 05/18/20 10/30/21 Elaina Moreno MD [address] [place] [address] Assigned Surgical Provider 05/18/20 11/19/22 Elaina Moreno MD 909 [place] [address] Cardiovascular & Thoracic Surgery 08/06/20 Kelsi Hassan MD [address] [place] [address] 284 [place] [address] Assigned Pulmonology Provider 06/28/21 02/05/22 John Webb MD [address] [place] [address] Cardiovascular Disease 08/25/21 Jonh Webb MD [address] [place] [address] Cardiovascular Disease 08/25/21 Estella Hassan, [facility] [address] [place] [address] Assigned MTM Pharmacist 09/05/21 Nav Hughes MD [address] [place] [address] Assigned Heart and Vascular Provider 10/31/21 09/03/23 Cassandra Mendoza MD ORTHOPAEDIC SURGERY [address] [address] Assigned Musculoskeletal Provider 10/31/21 08/13/22 Estella Hassan, [facility] [address] [place] [address] Assigned MTM Pharmacist 12/09/21 Mitra Kendall, [facility] Lead Plate Corrector Primary Care - CC 01/26/2210/28 Lindsay Carey OD [address] [facility] [place] [address] Ophthalmology 01/29/22 Ravi Brownlee MD [address] [place] [address] 276 [place], [place] 498[address] Assigned Pulmonology Provider 02/06/22 09/03/23 Arabella Fishman MA Financial Resource Worker 02/22/22 02/23/22 Richard Kam MD [address] [place] [address] [id number] Assigned Musculoskeletal Provider 08/14/22 [facility] [address] [facility] [address] [place] [phone] Pharmacist Pharmacist 11/22/22 01/09/23 [place] [address] [address] Assigned Neuroscience Provider 01/01/23 Rosemarie Mcdowell, RN Supervisor Hot Dip Plating Diabetes Education 03/17/23 Ravi Brownlee MD [address] [place] [address] 276 [place], [place] [phone] Assigned Heart and Vascular Provider 09/04/23 01/03/24 Mitra Kendall, PEDIATRIC PSYCHIATRIST Lead Plate Corrector Primary Care - CC 12/12/23 Lizet Mann PA-C [address] [place], [place] 229015 Assigned Cancer Care Provider 01/04/24 Ravi Brownlee MD 420 [facility] [address] [place], [place] 0[address] Assigned Pulmonology Provider 01/04/24 Nav Hughes MD [address] [facility] [address] [place] 424035 Assigned Heart and Vascular Provider 01/04/24 Manuel Ahn OD [address] [facility] SHANKAR RICHARDS 965582 Hardening Machine Operator 01/05/24 Arabella Fishman MA Financial Resource Worker 01/06/24 Thalia Charles Anabel Pharmacist Pharmacy 01/26/24 documented as of this encounter
--- OUTSIDE RECORDS SUMMARY | 2024-01-31 20:12 | XMS_ITS | Encounter Summary ---
Author Organization [facility] Address [address] [place] [address] Care Team Providers Care Licensed Customs Broker Name Role Phone Va Glez MD Primary Care Provider Va Glez MD Unavailable Kerry Bernal RN Unavailable [phone] Ravi Barillas DPM Unavailable [phone] Christy Campuzano PA-C Unavailable Hans Cannon MD Unavailable Mitra Kendall FOUNTAIN HELPER Unavailable [phone] Burt Jovel MD Unavailable Estella Hassan [facility] Unavailable Reji Chavez MD Unavailable [phone] Josh Cordero MD, Madhuri Unavailable [phone] Josh Cordero MD, Madhuri Unavailable [phone] Kelsi Hassan MD Unavailable [phone] John Webb MD Unavailable John Webb MD Unavailable [phone] Estella Hassan [facility] Unavailable Nav Hughes MD Unavailable [phone] Cassandra Mendoza MD Unavailable Estella Hassan [facility] Unavailable Mitra Kendall FOUNTAIN HELPER Unavailable Lindsay Carey OD Unavailable SalinaRavi bajwa MD Unavailable Arabella Fishman MA Unavailable [phone] Richard Kam MD Unavailable Marisol Patel [facility] Unavailable [phone] Gaby Vila DO Unavailable Rosemarie Mcdowell RN Unavailable [phone] Ravi Brownlee MD Unavailable Mitra Kendall FOUNTAIN HELPER Unavailable Lizet Mann PA-C Unavailable Ravi Brownlee MD Unavailable [phone] Nav Hughes MD Unavailable [phone] Manuel Ahn OD Unavailable [phone] Arabella Fishman MA Unavailable [phone] Thalia Charles [facility] Unavailable Unavailable Encounter Details Date Type Department Care Team (Late st Contact Info) Description 07/09/2020 [facility] Medical Advice [address] [address] Estella Hassan, [facility] [address] [place] [address] Social History Tobacco Use Types Packs/Day Years [...] Answer Date Recorded PHQ-2 Score 0 06/05/2020 [facility] - Occupational Stress [...] file Legal 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 INDUSTRIAL CONTROLLER Gender Identity Not on file Sexual Orientation [...] Contact Info) Description 02/01/2024 3:00 PM INDUSTRIAL CONTROLLER Office Visit [facility] [address] [place] [phone] Manuel Ahn, [address] [place] [address] 02/02/2024 1:30 PM INDUSTRIAL CONTROLLER Therapy Visit [facility] [address] [facility] [address] [place] [phone] Alicja Roldan OT [address] [place] [address] 02/05/2024 8:00 PM INDUSTRIAL CONTROLLER Therapy Visit [facility] [address] [place] [phone] 02/13/2024 4:30 PM INDUSTRIAL CONTROLLER Oncology Visit [facility] 9[address] [place] [phone] Marian Agustin, NESSA MOVIE SHOT CAMERA OPERATOR [address] [facility] [address] [place], [place] [address] 03/01/2024 7:00 AM INDUSTRIAL CONTROLLER Office Visit [facility] [address] [place] [phone] Estella Hassan, [facility] [address] [place] [address] 03/23/2024 2:00 PM INDUSTRIAL CONTROLLER Office Visit [facility] [address] [place] [address] Lizet Mann PA-C 717 [place] [address] 03/29/2024 3:30 PM INDUSTRIAL CONTROLLER Office Visit [facility] 2945 [facility] 200 [place] [phone] Hakeem Chacko MBBS [address] [place] [address] 05/03/2024 3:00 PM INDUSTRIAL CONTROLLER Office Visit [facility] [address] [place] [phone] Gaurav Valenzuela, SOFTWARE DEVELOPER CONSULTANT [address] 224764 05/22/2024 10:30 AM CDT Office Visit [address] [phone] [facility] [address] [place] [address] 05/22/2024 11:30 AM CDT Office Visit [address] [address] Va Glez MD [address] [place] [address] [phone] documented as of this encounter Visit Diagnoses Not on filedocumented in this encounter Additional Health Concerns Infection Onset Date Last Indicated Resolved Time Rule Out COVID-19 06/22/2021 06/22/2021 06/23/2021 8:58 PM CDT Rule Out COVID-19 01/22/2022 01/22/2022 01/24/2022 1:05 PM INDUSTRIAL CONTROLLER Rule Out COVID-19 01/25/2022 01/25/2022 01/25/2022 5:21 AM INDUSTRIAL CONTROLLER Influenza 01/25/2022 01/25/2022 02/01/2022 11:4 1 PM INDUSTRIAL CONTROLLER Rule Out COVID-19 07/29/2022 07/29/2022 07/31/2022 11:17 AM CDT Rule Out COVID-19 03/23/2023 03/23/2023 03/23/2023 6:30 PM INDUSTRIAL CONTROLLER COVID-19 03/23/2023 03/23/2023 04/13/2023 11:4 0 PM INDUSTRIAL CONTROLLER Rule Out COVID-19 06/05/2023 06/05/2023 06/05/2023 5:53 PM CDT Rule Out COVID-19 11/06/2023 11/06/2023 11/06/2023 11:05 PM CDT Rule Out COVID-19 11/20/2023 11/20/2023 11/20/2023 6:43 PM CDT Rule Out COVID-19 12/27/2023 12/27/2023 12/29/2023 1:37 PM CDT Assessment Noted Time PHQ-9 Depression Total Score: 2 06/06/19 12:47 PM CDT documented as of this encounter Care Teams Licensed Customs Broker Relationship Specialty [place] [address] [place] [address] PCP - General Family Practice 07/11/14 [place] [address] [place] [address] Assigned PCP 12/16/11 Kerry Bernal, INOCENCIO Personal Advocate & Liaison (PAL) 01/08/19 07/10/23 Ravi Barillas DPM [address] [facility] [address] [place] [address] Assigned Musculoskeletal Provider 03/23/20 10/30/21 Christy Campuzano PA-C [address] [place] [address] [id number] Referring Physician Family Medicine 04/22/20 Hans Cannon MD [address] [place] [address] [id number] Resident Pulmonary Disease 04/22/20 Mitra Kendall, [facility] Lead Field Project Manager Primary Care - CC 01/08/1901/12 Burt Jovel MD Internal Medicine 05/08/20 12/13/23 Estella Hassan, [facility] [address] [place], [place] 713[address] Pharmacist Pharmacist 05/26/20 Reji Chavez MD [address] [place] [phone] Assigned Heart and Vascular Provider 05/18/20 10/30/21 Elaina Moreno MD [address] [place] [address] Assigned Surgical Provider 05/18/20 11/19/22 Elaina Moreno MD 909 [place] [address] Cardiovascular & Thoracic Surgery 08/06/20 Kelsi Hassan MD [address] [place] [address] 284 [place] [address] Assigned Pulmonology Provider 06/28/21 02/05/22 John Webb MD [address] [place] [address] Cardiovascular Disease 08/25/21 John Webb MD [address] [place] [address] Cardiovascular Disease 08/25/21 Estella Hassan, [facility] [address] [place] [address] Assigned MTM Pharmacist 09/05/21 Nav Hughes MD [address] [place] [address] Assigned Heart and Vascular Provider 10/31/21 09/03/23 Cassandra Mendoza MD ORTHOPAEDIC SURGERY [address] [address] Assigned Musculoskeletal Provider 10/31/21 08/13/22 Estella Hassan, [facility] [address] [place] [address] Assigned MTM Pharmacist 12/09/21 Mitra Kendall, [facility] Lead Field Project Manager Primary Care - CC 01/26/2210/28 Lindsay Carey OD [address] [facility] [place] [address] Ophthalmology 01/29/22 Ravi Brownlee MD [address] [place] [address] 276 [place], [place] 819435 Assigned Pulmonology Provider 02/06/22 09/03/23 Arabella Fishman MA Financial Resource Worker 02/22/22 02/23/22 Richard Kam MD [address] [place] [address] 850525 Assigned Musculoskeletal Provider 08/14/22 [facility] [address] [facility] [address] [place] [phone] Pharmacist Pharmacist 11/22/22 01/09/23 [place] [address] [address] Assigned Neuroscience Provider 01/01/23 Rosemarie Mcdowell, RN Recreation Facilities Supervisor Diabetes Education 03/17/23 Ravi Brownlee MD [address] [place] [address] [address] [place], [place] 483595 Assigned Heart and Vascular Provider 09/04/23 01/03/24 Mitra Kendall, FOUNTAIN HELPER Lead Field Project Manager Primary Care - CC 12/12/23 Lizet Mann PA-C [address] [place], [place] 527105 Assigned Cancer Care Provider 01/04/24 Ravi Brownlee MD [address] [facility] [address] [place], [place] 958[address] Assigned Pulmonology Provider 01/04/24 Nav Hughes MD [address] [facility] [address] [place] [id number] Assigned Heart and Vascular Provider 01/04/24 Manuel Ahn OD [address] [facility] [place] 165242 Marine Steam Fitter 01/05/24 Arabella Fishman MA Financial Resource Worker 01/06/24 Thalia Charles Anabel Pharmacist Pharmacy 01/26/24 documented as of this encounter
--- OUTSIDE RECORDS SUMMARY | 2024-01-31 20:12 | XMS_ITS | Encounter Summary ---
Author Organization [facility] Address [address] [place] [address] Care Team Providers Care Remote Coders Name Role Phone Va Glez MD Primary Care Provider [phone] Va Glez MD Unavailable Kerry Bernal RN Unavailable [phone] Ravi Barillas DPM Unavailable [phone] Christy Campuzano PA-C Unavailable Hans Cannon MD Unavailable Mitra Kendall EGG SMELLER Unavailable Burt Jovel MD Unavailable Estella Hassan [facility] Unavailable [phone] Reij Chavez MD Unavailable [phone] Josh Cordero MD, Madhuri Unavailable [phone] Josh Cordero MD, Madhuri Unavailable [phone] Kelsi Hassan MD Unavailable [phone] John Webb MD Unavailable John Webb MD Unavailable [phone] Estella Hassan [facility] Unavailable [phone] Nav Hughes MD Unavailable [phone] Cassandra Mendoza MD Unavailable Estella Hassan H Unavailable Mitra Kendall EGG SMELLER Unavailable Aurelio Lindsay [place] OD Unavailable Ravi Brownlee MD Unavailable Arabella Fishman MA Unavailable [phone] Richard Kam MD Unavailable Marisol Patel [facility] Unavailable Gaby Vila DO Unavailable Rosemarie Mcdowell RN Unavailable Ravi Brownlee MD Unavailable [phone] Mitra Kendall EGG SMELLER Unavailable Lizet Mann PA-C Unavailable Ravi Brownlee MD Unavailable [phone] Nav Hughes MD Unavailable [phone] Manuel Ahn OD Unavailable [phone] Arabella Fishman MA Unavailable [phone] Thalia Charles [facility] Unavailable Unavailable Encounter Details Date Type Department Care Team (Late st Contact Info) Description 07/01/2020 [facility] Medical [facility] [address] [address] Hans Cannon MD [address] [place] [address] Social History Tobacco Use Types [...] Answer Date Recorded PHQ-2 Score 0 06/05/2020 [facility]at [facility] [...] file Legal 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 ELECTRIC WELDER HELPER Gender Identity Not on file Sexual [...] Contact Info) Description 02/01/2024 3:00 PM ELECTRIC WELDER HELPER Office Visit [facility] [address] [place] [phone] Manuel Ahn, [address] [place] [address] 02/02/2024 1:30 PM ELECTRIC WELDER HELPER Therapy [facility] [address] [facility] [address] [place] [phone] Alicja Roldan, OT 909 [place] [address] 02/05/2024 8:00 PM ELECTRIC WELDER HELPER Therapy Visit [facility] [address] [place] [phone] 02/13/2024 4:30 PM ELECTRIC WELDER HELPER Oncology Visit [facility] 909 [place] [phone] Marian Agustin APRN SPRING COILING MACHINE SETTER [address] [facility] [address] [place], [place] [address] 03/01/2024 7:00 AM ELECTRIC WELDER HELPER Office Visit [facility] [address] [place] [phone] Estella Hassan, [facility] [address] [place] [address] 03/23/2024 2:00 PM ELECTRIC WELDER HELPER Office Visit [facility] [address] [place] [address] Lizet Mann PA-C 717 [place] [address] 03/29/2024 3:30 PM ELECTRIC WELDER HELPER Office Visit [facility] 2945 [facility] 200 [place] [phone] Hakeem Chacko MBBS [address]45 [place] [address] 05/03/2024 3:00 PM ELECTRIC WELDER HELPER Office Visit [facility] [address] [place] [phone] Gaurav Valenzuela, EGG GRADER [address] 424[address] 05/22/2024 10:30 AM CDT Office Visit [address] [phone] Estella Hassan, [facility] [address] [place] [address] 05/22/2024 11:30 AM CDT Office Visit [address] [address] Va Glez MD [address] [place] [address] [phone] documented as of this encounter Visit Diagnoses Not on filedocumented in this encounter Additional Health Concerns Infection Onset Date Last Indicated Resolved Time Rule Out COVID-19 06/22/2021 06/22/2021 06/23/2021 8:58 PM CDT Rule Out COVID-19 01/22/2022 01/22/2022 01/24/2022 1:05 PM ELECTRIC WELDER HELPER Rule Out COVID-19 01/25/2022 01/25/2022 01/25/2022 5:21 AM ELECTRIC WELDER HELPER Influenza 01/25/2022 01/25/2022 02/01/2022 11:4 1 PM ELECTRIC WELDER HELPER Rule Out COVID-19 07/29/2022 07/29/2022 07/31/2022 11:17 AM CDT Rule Out COVID-19 03/23/2023 03/23/2023 03/23/2023 6:30 PM ELECTRIC WELDER HELPER COVID-19 03/23/2023 03/23/2023 04/13/2023 11:4 0 PM ELECTRIC WELDER HELPER Rule Out COVID-19 06/05/2023 06/05/2023 06/05/2023 5:53 PM CDT Rule Out COVID-19 11/06/2023 11/06/2023 11/06/2023 11:05 PM CDT Rule Out COVID-19 11/20/2023 11/20/2023 11/20/2023 6:43 PM CDT Rule Out COVID-19 12/27/2023 12/27/2023 12/29/2023 1:37 PM CDT Assessment Noted Time PHQ-9 Depression Total Score: 2 06/06/19 21 12:47 PM CDT documented as of this encounter Care Teams Remote Coders Relationship Specialty [place] [address] [place] [address] PCP - General Family Practice 07/11/14 [place] [address] [place] [address] Assigned PCP 12/16/11 Kerry Bernal RN Personal Advocate & Liaison (PAL) 01/08/19 07/10/23 Ravi Barillas DPM [address] [facility] 300 [place] [address] Assigned Musculoskeletal Provider 03/23/20 10/30/21 Christy Campuzano PA-C [address] [place] [address] 548572 Referring Physician Family Medicine 04/22/20 Hans Cannon MD [address] [place] [address] 597522 Resident Pulmonary Disease 04/22/20 Mitra Kendall, [facility] Lead Retaining Room Cutter Primary Care - CC 01/08/1901/12 Burt Jovel MD Internal Medicine 05/08/20 12/13/23 Estella Hassan, [facility] [address] [place], [place] [address]46 Pharmacist Pharmacist 05/26/20 Reji Chavez MD [address] [place] [phone] Assigned Heart and Vascular Provider 05/18/20 10/30/21 Elaina Moreno MD [address] [place] [address] Assigned Surgical Provider 05/18/20 11/19/22 Elaina Moreno MD 909 [place] [address] Cardiovascular & Thoracic Surgery 08/06/20 Kelsi Hassan MD 420 [facility] [address] [place] [address] Assigned Pulmonology Provider 06/28/21 02/05/22 John Webb MD [address] [place] 389975 Cardiovascular Disease 08/25/21 John Webb MD [address] [place] [address] Cardiovascular Disease 08/25/21 Estella Hassan, [facility] [address] [place] [address] Assigned MTM Pharmacist 09/05/21 Nav Hughes MD [address] [place] [address] Assigned Heart and Vascular Provider 10/31/21 09/03/23 Cassandra Mendoza MD ORTHOPAEDIC SURGERY [facility] [address] [address] Assigned Musculoskeletal Provider 10/31/21 08/13/22 Estella Hassan, [facility] [address] [place] [address] Assigned MTM Pharmacist 12/09/21 Mitra Kendall, [facility] Lead Retaining Room Cutter Primary Care - CC 01/26/2210/28 Lindsay Carey OD [address] [facility] [place] [address] Ophthalmology 01/29/22 Ravi Brownlee MD [address] [place] [address] 276 [place] [address] Assigned Pulmonology Provider 02/06/22 09/03/23 Arabella Fishman MA Financial Resource Worker 02/22/22 02/23/22 Richard Kam MD [address] [place] [address] 114705 Assigned Musculoskeletal Provider 08/14/22 [facility] [address] [facility] [place] [phone] Pharmacist Pharmacist 11/22/22 01/09/23 [place] [address] [address] Assigned Neuroscience Provider 01/01/23 Rosemarie Mcdowell, RN Medical Assistant Dermatology Diabetes Education 03/17/23 Ravi Brownlee MD [address] [place] [address] 276 [place], [place] 594875 Assigned Heart and Vascular Provider 09/04/23 01/03/24 Mitra Kendall LSW Lead Retaining Room Cutter Primary Care - CC 12/12/23 Lizet Mann PA-C [address] [place] [address] Assigned Cancer Care Provider 01/04/24 Ravi Brownlee MD 420 [facility] [address] [place], [place] 4957[address] Assigned Pulmonology Provider 01/04/24 Nav Hughes MD 6405 [facility]340 [place] 902345 Assigned Heart and Vascular Provider 01/04/24 Manuel Ahn OD 6341 [facility] [place] [address] Concrete Batch Plant Operator 01/05/24 Arabella Fishman MA Financial Resource Worker 01/06/24 Thalia Charles [facility] Pharmacist Pharmacy 01/26/24 documented as of this encounter
--- OUTSIDE RECORDS SUMMARY | 2024-01-31 20:12 | XMS_ITS | Encounter Summary ---
Author Organization [facility] Address [address] [place] [address] Care Team Providers Care Orthotic/Prosthetic Clinician Name Role Phone Va Glez MD Primary Care Provider Va Glez MD Unavailable Kerry Bernal RN Unavailable [phone] Ravi Barillas DPM Unavailable [phone] Christy Campuzano PA-C Unavailable Hans Cannon MD Unavailable Mitra Kendall CARDIAC EXERCISE SPECIALIST Unavailable [phone] Burt Jovel MD Unavailable Estella Hassan [facility] Unavailable Reji Chavez MD Unavailable Josh Cordero MD, Madhuri Unavailable [phone] Josh Cordero MD, Madhuri Unavailable [phone] Kelsi Hassan MD Unavailable [phone] John Webb MD Unavailable John Webb MD Unavailable Estella Hassan [facility] Unavailable Nav Hughes MD Unavailable [phone] Cassandra Mendoza MD Unavailable [phone] Estella Hassan H Unavailable Mitra Kendall CARDIAC EXERCISE SPECIALIST Unavailable Aurelio Lindsay Kenzie OD Unavailable FurlongRavi bajwa MD Unavailable Arabella Fishman MA Unavailable [phone] Richard Kam MD Unavailable Marisol Patel [facility] Unavailable [phone] Gaby Vila DO Unavailable Rosemarie Mcdowell RN Unavailable Ravi Brownlee MD Unavailable Mitra Kendall CARDIAC EXERCISE SPECIALIST Unavailable [phone] Lizet Mann PA-C Unavailable [phone] Ravi Brownlee MD Unavailable Nav Hughes MD Unavailable [phone] Manuel Ahn OD Unavailable Arabella Fishman MA Unavailable [phone] Thalia Charles [facility] Unavailable Unavailable Encounter Details Date Type Department Care Team (Late st Contact Info) Description 06/29/2020 [facility] Medical Advice [facility] [id number] [place] [address] [place] [id number] [place] [address] Social History Tobacco Use Types Packs/Day [...] Answer Date Recorded PHQ-2 Score 0 06/05/2020 [facility] - [...] on file Legal 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 PLEATING SUPERVISOR Gender Identity Not on file Sexual [...] st Contact Info) Description 02/01/2024 3:00 PM PLEATING SUPERVISOR Office [facility] [address] [place] [phone] Manuel Ahn, [address] [place] [address] 02/02/2024 1:30 PM PLEATING SUPERVISOR Therapy Visit [facility] [address] [facility] [address] [place] [phone] Alicja Roldan OT 909 [place] [address] 02/05/2024 8:00 PM PLEATING SUPERVISOR Therapy Visit [facility] [address] [place] [phone] 02/13/2024 4:30 PM PLEATING SUPERVISOR Oncology Visit [facility] 9[address] [place] [phone] Marian Agustin, CAP AND STUD MACHINE OPERATOR SALES BRANCH MANAGER [address] [facility] [address] [place], [place] [address] 03/01/2024 7:00 AM PLEATING SUPERVISOR Office Visit [facility] [address] [place] [phone] Estella Hassan, [facility] 30[address] [place] [address] 03/23/2024 2:00 PM PLEATING SUPERVISOR Office Visit [facility] [address] [place] [address] Lizet Mann PA-C 717 [place] [address] 03/29/2024 3:30 PM PLEATING SUPERVISOR Office Visit [facility] 2945 [facility] 200 [place] [phone] Hakeem Chacko MBBS 2945 [place] [address] 05/03/2024 3:00 PM PLEATING SUPERVISOR Office Visit [facility] [address] [place] [phone] Gaurav Valenzuela, CAP AND STUD MACHINE OPERATOR [facility] [address] [place] [address] 05/22/2024 10:30 AM CDT Office Visit [address] [phone] Estella Hassan, [facility] [address] [place] [address] 05/22/2024 11:30 AM CDT Office Visit [address] [address] [place] [address] [place], [place] [phone] documented as of this encounter Visit Diagnoses Not on filedocumented in this encounter Additional Health Concerns Infection Onset Date Last Indicated Resolved Time Rule Out COVID-19 06/22/2021 06/22/2021 06/23/2021 8:58 PM CDT Rule Out COVID-19 01/22/2022 01/22/2022 01/24/2022 1:05 PM PLEATING SUPERVISOR Rule Out COVID-19 01/25/2022 01/25/2022 01/25/2022 5:21 AM PLEATING SUPERVISOR Influenza 01/25/2022 01/25/2022 02/01/2022 11:4 1 PM PLEATING SUPERVISOR Rule Out COVID-19 07/29/2022 07/29/2022 07/31/2022 11:17 AM CDT Rule Out COVID-19 03/23/2023 03/23/2023 03/23/2023 6:30 PM PLEATING SUPERVISOR COVID-19 03/23/2023 03/23/2023 04/13/2023 11:4 0 PM PLEATING SUPERVISOR Rule Out COVID-19 06/05/2023 06/05/2023 06/05/2023 5:53 PM CDT Rule Out COVID-19 11/06/2023 11/06/2023 11/06/2023 11:05 PM CDT Rule Out COVID-19 11/20/2023 11/20/2023 11/20/2023 6:43 PM CDT Rule Out COVID-19 12/27/2023 12/27/2023 12/29/2023 1:37 PM CDT Assessment Noted Time PHQ-9 Depression Total Score: 2 06/06/19 21 12:47 PM CDT documented as of this encounter Care Teams Orthotic/Prosthetic Clinician Relationship Specialty [place] [address] [place] [address] PCP - General Family Practice 07/11/14 [place] [address] [place] [address] Assigned PCP 12/16/11 Keryr Bernal, INOCENCIO Personal Advocate & Liaison (PAL) 01/08/19 07/10/23 Ravi Barillas DPM [address] [facility] [address] [place] [address] Assigned Musculoskeletal Provider 03/23/20 10/30/21 Christy Campuzano PA-C [address] [place] [address] [phone] Referring Physician Family Medicine 04/22/20 Hans Cannon MD [address] [place] [address] [id number] Resident Pulmonary Disease 04/22/20 Mitra Kendall, [facility] Lead Termite Exterminator Helper Primary Care - CC 01/08/1901/12 Burt Jovel MD Internal Medicine 05/08/20 12/13/23 Estella Hassan, [facility] [address] [place], [place] 5[address] Pharmacist Pharmacist 05/26/20 Reji Chavez MD [address] [place] [phone] Assigned Heart and Vascular Provider 05/18/20 10/30/21 Elaina Moreno MD [address] [place] [address] Assigned Surgical Provider 05/18/20 11/19/22 Elaina Moreno MD [facility] [place] [address] Cardiovascular & Thoracic Surgery 08/06/20 Kelsi Hassan MD [address] [place] [address] [address] [place] [address] Assigned Pulmonology Provider 06/28/21 02/05/22 John Webb MD [address] [place] [address] Cardiovascular Disease 08/25/21 John Webb MD [address] [place] [address] Cardiovascular Disease 08/25/21 Estella Hassan, [facility] 30[address] [place] [address] Assigned MTM Pharmacist 09/05/21 Nav Hughes MD [address] [place] [address] Assigned Heart and Vascular Provider 10/31/21 09/03/23 Cassandra Mendoza MD ORTHOPAEDIC SURGERY [facility] [address] [address] Assigned Musculoskeletal Provider 10/31/21 08/13/22 Estella Hassan, [facility] [address] [place] [address] Assigned MTM Pharmacist 12/09/21 Mitra Kendall, CARDIAC EXERCISE SPECIALIST Lead Termite Exterminator Helper Primary Care - CC 01/26/2210/28 Lindsay Carey OD [address] [facility] [place] [address] Ophthalmology 01/29/22 Ravi Brownlee MD [address] [place] [address] [address] [place], [place] [address] Assigned Pulmonology Provider 02/06/22 09/03/23 Arabella Fishman MA Financial Resource Worker 02/22/22 02/23/22 Richard Kam MD [address] [place] [address] 197995 Assigned Musculoskeletal Provider 08/14/22 [facility] [address] [facility] [address] [place] [phone] Pharmacist Pharmacist 11/22/22 01/09/23 [place] [address] [facility] [place], [address] [address] Assigned Neuroscience Provider 01/01/23 Rosemarie Mcdowell, RN Insurance Processing Clerk Diabetes Education 03/17/23 Ravi Brownlee MD [address] [place] [address] [address] [place], [place] 04[address] Assigned Heart and Vascular Provider 09/04/23 01/03/24 Mitra Kendall, CARDIAC EXERCISE SPECIALIST Lead Termite Exterminator Helper Primary Care - CC 12/12/23 Lizet Mann PA-C 7[address] [place], [place] [address] Assigned Cancer Care Provider 01/04/24 Ravi Brownlee MD [address] [facility] [address] [place], [place] [address] Assigned Pulmonology Provider 01/04/24 Nav Hughes MD [address] [facility] [address] [place] [address] Assigned Heart and Vascular Provider 01/04/24 Manuel Ahn OD [address] [facility] [place] 6[address] Store Manager 01/05/24 Arabella Fishman MA Financial Resource Worker 01/06/24 Thalia Charles [facility] Pharmacist Pharmacy 01/26/24 documented as of this encounter
--- OUTSIDE RECORDS SUMMARY | 2024-01-31 20:12 | XMS_ITS | Encounter Summary ---
Author Organization [facility] Address [address] [place] [address] Care Team Providers Care Pipe Or Steam Fitter Furnace Installer Name Role Phone Va Glez MD Primary Care Provider Va Glez MD Unavailable Kerry Bernal RN Unavailable [phone] Ravi Barillas DPM Unavailable [phone] Christy Campuzano PA-C Unavailable Hans Cannon MD Unavailable Mitra Kendall INSIDE SALES ADVISOR Unavailable [phone] Burt Jovel MD Unavailable Estella Hassan [facility] Unavailable [phone] Reji Chavez MD Unavailable Josh Cordero MD, Madhuri Unavailable [phone] Josh Cordero MD, Madhuri Unavailable [phone] Kelsi Hassan MD Unavailable [phone] John Webb MD Unavailable [phone] John Webb MD Unavailable [phone] Estella Hassan [facility] Unavailable Nav Hughes MD Unavailable [phone] Cassandra Mendoza MD Unavailable Estella Hassan [facility] Unavailable Mitra Kendall INSIDE SALES ADVISOR Unavailable Lindsay Carey OD Unavailable RaymoreRavi bajwa MD Unavailable Arabella Fishman MA Unavailable [phone] Richard Kam MD Unavailable Marisol Patel [facility] Unavailable [phone] Gaby Vila DO Unavailable Rosemarie Mcdowell RN Unavailable Ravi Brownlee MD Unavailable Mitra Kendall INSIDE SALES ADVISOR Unavailable Lizet Mann PA-C Unavailable Ravi Brownlee MD Unavailable Nav Hughes MD Unavailable [phone] Manuel Ahn OD Unavailable Arabella Fishman MA Unavailable [phone] Thalia Charles [facility] Unavailable Unavailable Encounter Details Date Type Department Care Team (Late st Contact Info) Description 06/26/2020 [facility] Medical Advice [address] [address] Estella Hassan, [facility] [address] [place] [address] Social History Tobacco Use Types Packs/Day Years [...] Answer Date Recorded PHQ-2 Score 0 06/05/2020 [facility] Occupat ional Health - [...] on file Legal 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 EVENT AV OPERATOR Gender Identity Not on file Sexual [...] st Contact Info) Description 02/01/2024 3:00 PM EVENT AV OPERATOR Office Visit [facility] 6341 [place] [phone] Manuel Ahn, [address] [place] [address] 02/02/2024 1:30 PM EVENT AV OPERATOR Therapy Visit [facility] [address] [facility] [address] [place] [phone] Alicja Roldan OT 909 [place] [address] 02/05/2024 8:00 PM EVENT AV OPERATOR Therapy Visit [facility] [address] [place] [phone] 02/13/2024 4:30 PM EVENT AV OPERATOR Oncology Visit [facility] 909 [place] [phone] Marian Agustin, NESSA WEBBING TACKER [address] [facility] 207 [place], [place] [address] 03/01/2024 7:00 AM EVENT AV OPERATOR Office Visit [facility] [address] [place] [phone] Estella Hassan, [facility] [address] [place] [address] 03/23/2024 2:00 PM EVENT AV OPERATOR Office Visit [facility] [address] [facility] [place] [address] Lizet Mann PA-C 717 [place] [address] 03/29/2024 3:30 PM EVENT AV OPERATOR Office Visit [facility] 2945 [facility] 200 [place] [phone] Hakeem Chacko MBBS 2945 [place] [address] 05/03/2024 3:00 PM EVENT AV OPERATOR Office Visit [facility] [address] [place] [address] Gaurav Valenzuela, TECHNOLOGY PROJECT MANAGER [address] 84[address] 05/22/2024 10:30 AM CDT Office Visit [address] [phone] [facility] 30[address] [place] [address] 05/22/2024 11:30 AM CDT Office Visit [address] [address] Va Glez MD [address] [place] [address] [phone] documented as of this encounter Visit Diagnoses Not on filedocumented in this encounter Additional Health Concerns Infection Onset Date Last Indicated Resolved Time Rule Out COVID-19 06/22/2021 06/22/2021 06/23/2021 8:58 PM CDT Rule Out COVID-19 01/22/2022 01/22/2022 01/24/2022 1:05 PM EVENT AV OPERATOR Rule Out COVID-19 01/25/2022 01/25/2022 01/25/2022 5:21 AM EVENT AV OPERATOR Influenza 01/25/2022 01/25/2022 02/01/2022 11:4 1 PM EVENT AV OPERATOR Rule Out COVID-19 07/29/2022 07/29/2022 07/31/2022 11:17 AM CDT Rule Out COVID-19 03/23/2023 03/23/2023 03/23/2023 6:30 PM EVENT AV OPERATOR COVID-19 03/23/2023 03/23/2023 04/13/2023 11:4 0 PM EVENT AV OPERATOR Rule Out COVID-19 06/05/2023 06/05/2023 06/05/2023 5:53 PM CDT Rule Out COVID-19 11/06/2023 11/06/2023 11/06/2023 11:05 PM CDT Rule Out COVID-19 11/20/2023 11/20/2023 11/20/2023 6:43 PM CDT Rule Out COVID-19 12/27/2023 12/27/2023 12/29/2023 1:37 PM CDT Assessment Noted Time PHQ-9 Depression Total Score: 2 06/06/19 12:47 PM CDT documented as of this encounter Care Teams Pipe Or Steam Fitter Furnace Installer Relationship Specialty [place] [address] [place] [address] PCP - General Family Practice 07/11/14 [place] [address] [place] [address] Assigned PCP 12/16/11 Kerry Bernal, INOCENCIO Personal Advocate & Liaison (PAL) 01/08/19 07/10/23 Ravi Barillas DPM [address] [facility] [address] [place] [address] Assigned Musculoskeletal Provider 03/23/20 10/30/21 Christy Campuzano PA-C [address] [place] [address] [phone] Referring Physician Family Medicine 04/22/20 Hans Cannon MD [address] [place] [address] 977232 Resident Pulmonary Disease 04/22/20 Mitra Kendall, [facility] Lead Supervisor Pastry Primary Care - CC 01/08/1901/12 Burt Jovel MD Internal Medicine 05/08/20 12/13/23 Estella Hassan, [facility] [address] [place], [place] [address] Pharmacist Pharmacist 05/26/20 Reji Chavez MD [address] [place] [phone] Assigned Heart and Vascular Provider 05/18/20 10/30/21 Elaina Moreno MD [address] [place] [address] Assigned Surgical Provider 05/18/20 11/19/22 Elaina Moreno MD 909 [place] [address] Cardiovascular & Thoracic Surgery 08/06/20 Kelsi Hassan MD [address] [place] [address] 284 [place] [address] Assigned Pulmonology Provider 06/28/21 02/05/22 John Webb MD [address] [place] [address] Cardiovascular Disease 08/25/21 John Webb MD [address] [place] [address] Cardiovascular Disease 08/25/21 Estella Hassan, [facility] [address] [place] [address] Assigned MTM Pharmacist 09/05/21 Nav Hughes MD [address] [place] [address] Assigned Heart and Vascular Provider 10/31/21 09/03/23 Cassandra Mendoza MD ORTHOPAEDIC SURGERY [address] [address] Assigned Musculoskeletal Provider 10/31/21 08/13/22 Estella Hassan, [facility] [address] [place] [address] Assigned MTM Pharmacist 12/09/21 Mitra Kendall, [facility] Lead Supervisor Pastry Primary Care - CC 01/26/2210/28 [place] Carey [place] [address] [facility] [place] [address] Ophthalmology 01/29/22 Ravi Brownlee MD [address] [place] [address] 276 [place], [place] 57[address] Assigned Pulmonology Provider 02/06/22 09/03/23 Arabella Fishman MA Financial Resource Worker 02/22/22 02/23/22 Richard Kam MD [address] [place] [address] 144005 Assigned Musculoskeletal Provider 08/14/22 [facility] [address] [facility] [address] [place] [phone] Pharmacist Pharmacist 11/22/22 01/09/23 [place] [address] [address] Assigned Neuroscience Provider 01/01/23 Rosemarie Mcdowell, RN Public Health Nurse Diabetes Education 03/17/23 Ravi Brownlee MD [address] [place] [address] 276 [place], [place] [address]185 Assigned Heart and Vascular Provider 09/04/23 01/03/24 Mitra Kendall, INSIDE SALES ADVISOR Lead Supervisor [facility] Primary Care - CC 12/12/23 Lizet Mann PA-C 717 [place], [place] 0[address] Assigned Cancer Care Provider 01/04/24 Ravi Brownlee MD 420 [facility] [address] [place], [place] 354015 Assigned Pulmonology Provider 01/04/24 Nav Hughes MD [address] [facility] [address] [place] 336675 Assigned Heart and Vascular Provider 01/04/24 Manuel Ahn OD [address] [facility] [place] [place] [address]39[address] Ecologist 01/05/24 Arabella Fishman MA Financial Resource Worker 01/06/24 Thalia Charles [facility] Pharmacist Pharmacy 01/26/24 documented as of this encounter
--- OUTSIDE RECORDS SUMMARY | 2024-01-31 20:12 | XMS_ITS | Encounter Summary ---
Author Organization [facility] Address [address] [place] [address] Care Team Providers Care Home Service Director Name Role Phone Va Glez MD Primary Care Provider Va Glez MD Unavailable Kerry Bernal RN Unavailable [phone] Ravi Barillas DPM Unavailable [phone] Christy Campuzano PA-C Unavailable Hans Cannon MD Unavailable [phone] Mitra Kendall PAYROLL DIRECTOR Unavailable Burt Joevl MD Unavailable Estella Hassan [facility] Unavailable Reji Chavez MD Unavailable Josh Cordero MD, Madhuri Unavailable [phone] Josh Cordero MD, Madhuri Unavailable [phone] Kelsi Hassan MD Unavailable [phone] John Webb MD Unavailable [phone] John Webb MD Unavailable [phone] Estella Hassan [facility] Unavailable Nav Hughes MD Unavailable [phone] Cassandra Mendoza MD Unavailable Estella Hassan H Unavailable Mitra Kendall PAYROLL DIRECTOR Unavailable Aurelio Lindsay Kenzie OD Unavailable Ravi Brownlee MD Unavailable Arabella Fishman MA Unavailable [phone] Richard Kam MD Unavailable Marisol Patel [facility] Unavailable Gaby Vila DO Unavailable Rosemarie Mcdowell RN Unavailable Ravi Brownlee MD Unavailable Mitra Kendall PAYROLL DIRECTOR Unavailable Lizet Mann PA-C Unavailable Ravi Brownlee MD Unavailable Nav Hughes MD Unavailable [phone] Manuel Ahn OD Unavailable Arabella Fishman MA Unavailable [phone] Thalia Charles [facility] Unavailable Unavailable Encounter Details Date Type Department Care Team (Late st Contact Info) Description 06/30/2020 [facility] [address] [place] [phone] Elaina Moreno MD [address] [place] [address] Social History Tobacco Use Types Packs/Day [...] and Family Not on file 05/31/2019 Attends Yarsanism Services Not on file 05/30 Active Member [...] Answer Date Recorded PHQ-2 Score 0 06/05/2020 [facility] [place] of Occupat ional Health - Occupational Stress [...] file Legal 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 DIRECTOR DIGITAL STRATEGY Gender Identity Not on file Sexual Orientation [...] Contact Info) Description 02/01/2024 3:00 PM DIRECTOR DIGITAL STRATEGY Office Visit [facility] [address] [place] [phone] Manuel Ahn, [address] [place] [address] 02/02/2024 1:30 PM DIRECTOR DIGITAL STRATEGY Therapy Visit [facility] [address] [facility] [address] [place] [phone] Alicja Roldan OT 909 [place] [address] 02/05/2024 8:00 PM DIRECTOR DIGITAL STRATEGY Therapy Visit [facility] [address] [place] [phone] 02/13/2024 4:30 PM DIRECTOR DIGITAL STRATEGY Oncology Visit [facility] 909 [place] [phone] Marian Agustin, NESSA WIRE STRANDER [address] [facility] [address] [place], [place] [address] 03/01/2024 7:00 AM DIRECTOR DIGITAL STRATEGY Office Visit [facility] [address] [place] [phone] Estella Hassan, [facility] 30[address] [place] [address] 03/23/2024 2:00 PM DIRECTOR DIGITAL STRATEGY Office [facility] [address] [place] [address] Lizet Mann PA-C 717 [place] [address] 03/29/2024 3:30 PM DIRECTOR DIGITAL STRATEGY Office Visit [facility] 2945 [facility] 200 [place] [phone] Hakeem Chacko MBBS 2945 [place] [address] 05/03/2024 3:00 PM DIRECTOR DIGITAL STRATEGY Office Visit [facility] [address] [place] [phone] Gaurav Valenzuela, KILN [facility] [address] [place] [address] 175214 05/22/2024 10:30 AM CDT Office Visit [address] [phone] Estella Hassan, [facility] [address] [place] [address] 05/22/2024 11:30 AM CDT Office Visit [address] [address] Va Glez MD [address] [place] [address] [phone] documented as of this encounter Visit Diagnoses Not on filedocumented in this encounter Additional Health Concerns Infection Onset Date Last Indicated Resolved Time Rule Out COVID-19 06/22/2021 06/22/2021 06/23/2021 8:58 PM CDT Rule Out COVID-19 01/22/2022 01/22/2022 01/24/2022 1:05 PM DIRECTOR DIGITAL STRATEGY Rule Out COVID-19 01/25/2022 01/25/2022 01/25/2022 5:21 AM DIRECTOR DIGITAL STRATEGY Influenza 01/25/2022 01/25/2022 02/01/2022 11:4 1 PM DIRECTOR DIGITAL STRATEGY Rule Out COVID-19 07/29/2022 07/29/2022 07/31/2022 11:17 AM CDT Rule Out COVID-19 03/23/2023 03/23/2023 03/23/2023 6:30 PM DIRECTOR DIGITAL STRATEGY COVID-19 03/23/2023 03/23/2023 04/13/2023 11:4 0 PM DIRECTOR DIGITAL STRATEGY Rule Out COVID-19 06/05/2023 06/05/2023 06/05/2023 5:53 PM CDT Rule Out COVID-19 11/06/2023 11/06/2023 11/06/2023 11:05 PM CDT Rule Out COVID-19 11/20/2023 11/20/2023 11/20/2023 6:43 PM CDT Rule Out COVID-19 12/27/2023 12/27/2023 12/29/2023 1:37 PM CDT Assessment Noted Time PHQ-9 Depression Total Score: 2 06/06/19 21 12:47 PM CDT documented as of this encounter Care Teams Home Service Director Relationship Specialty [place] [address] [place] [address] PCP - General Family Practice 07/11/14 [place] [address] [place] [address] Assigned PCP 12/16/11 Kerry Bernal RN Personal Advocate & Liaison (PAL) 01/08/19 07/10/23 Ravi Barillas DPM [address] [facility] [address] [place] [address] Assigned Musculoskeletal Provider 03/23/20 10/30/21 Christy Campuzano PA-C [address] [place] [address] [phone] Referring Physician Family Medicine 04/22/20 Hans Cannon MD [address] [place] [address] [id number] Resident Pulmonary Disease 04/22/20 Mitra Kendall, [facility] Lead Blood Collector Primary Care - CC 01/08/1901/12 Burt Jovel MD Internal Medicine 05/08/20 12/13/23 Estella Hassan, [facility] [address] [place], [place] 939206 Pharmacist Pharmacist 05/26/20 Reji Chavez MD [address] [place] [phone] Assigned Heart and Vascular Provider 05/18/20 10/30/21 Elaina Moreno MD [address] [place] [address] Assigned Surgical Provider 05/18/20 11/19/22 Elaina Moreno MD 909 [place] [address] Cardiovascular & Thoracic Surgery 08/06/20 Kelsi Hassan MD [address] [place] [address] 284 [place] [address] Assigned Pulmonology Provider 06/28/21 02/05/22 John Webb MD [address] [place] [address] Cardiovascular Disease 08/25/21 John Webb MD [address] [place] [address] Cardiovascular Disease 08/25/21 Estella Hassan, [facility] [address] [place] [address] Assigned MTM Pharmacist 09/05/21 Nav Hughes MD [address] [place] [address] Assigned Heart and Vascular Provider 10/31/21 09/03/23 Cassandra Mendoza MD ORTHOPAEDIC SURGERY [address] [address] Assigned Musculoskeletal Provider 10/31/21 08/13/22 Estella Hassan, [facility] [address] [place] [address] Assigned MTM Pharmacist 12/09/21 Mitra Kendall, [facility] Lead Blood Collector Primary Care - CC 01/26/2210/28 Lindsay Carey OD [address] [facility] [place] [address] Ophthalmology 01/29/22 Ravi Brownlee MD [address] [place] [address] [address] [place], [place] 0965[address] Assigned Pulmonology Provider 02/06/22 09/03/23 Arabella Fishman MA Financial Resource Worker 02/22/22 02/23/22 Richard Kam MD [address] [place] [address] 682305 Assigned Musculoskeletal Provider 08/14/22 [facility] [address] [facility] [address] [place] [phone] Pharmacist Pharmacist 11/22/22 01/09/23 [place] [address] [address] Assigned Neuroscience Provider 01/01/23 Rosemarie Mcdowell, RN Lettuce Trimmer Diabetes Education 03/17/23 Ravi Brownlee MD [address] [place] [address] [address] [place], [place] 472455 Assigned Heart and Vascular Provider 09/04/23 01/03/24 Mitra Kendall, [facility] Lead Blood Collector Primary Care - CC 12/12/23 Lizet Mann PA-C 717 [place] [address] Assigned Cancer Care Provider 01/04/24 Ravi Brownlee MD [address] [facility] [address] [place], [place] 5545[address] Assigned Pulmonology Provider 01/04/24 Nav Hughes MD [address] [facility] SHANKAR HAYES 070705 Assigned Heart and Vascular Provider 01/04/24 Manuel Ahn OD [address] [facility] SHANKAR RICHARDS 609102 Bathing Suit Maker 01/05/24 Arabella Fishman MA Financial Resource Worker 01/06/24 Thalia Charles [facility] Pharmacist Pharmacy 01/26/24 documented as of this encounter
--- OUTSIDE RECORDS SUMMARY | 2024-01-31 20:12 | XMS_ITS | Encounter Summary ---
Author Organization [facility] Address [address] [place] [address] Care Team Providers Care Handkerchief Cutter Name Role Phone Va Glez MD Primary Care Provider Va Glez MD Unavailable Kerry Bernal RN Unavailable [phone] Ravi Barillas DPM Unavailable [phone] Christy Campuzano PA-C Unavailable Hans Cannon MD Unavailable Mitra Kendall CAPACITY PLANNER Unavailable Brut Jovel MD Unavailable Estella Hassan [facility] Unavailable [phone] Reji Chavez MD Unavailable Josh Cordero MD, Madhuri Unavailable [phone] Josh Cordero MD, Madhuri Unavailable [phone] Kelsi Hassan MD Unavailable [phone] John Webb MD Unavailable John Webb MD Unavailable Estella Hassan [facility] Unavailable [phone] Nav Hughes MD Unavailable [phone] Cassandra Mendoza MD Unavailable Estella Hassan [facility] Unavailable Mitra Kendall CAPACITY PLANNER Unavailable Lindsay Carey OD Unavailable [phone] P[place]stownRavi bajwa MD Unavailable [phone] Arabella Fishman MA Unavailable [phone] Richard Kam MD Unavailable Marisol Patel [facility] Unavailable Gaby Vila DO Unavailable Rosemarie Mcdowell RN Unavailable Ravi Brownlee MD Unavailable Mitra Kendall CAPACITY PLANNER Unavailable [phone] Lizet Mann PA-C Unavailable Ravi Brownlee MD Unavailable [phone] Nav Hughes MD Unavailable [phone] Manuel Ahn OD Unavailable Arabella Fishman MA Unavailable [phone] Thalia Charles [facility] Unavailable Unavailable Encounter Details Date Type Department Care Team (Late st Contact Info) Description 07/06/2020 [facility] [place] [facility]ice [address] [address] Estella Hassan, [facility] [address] [place] [address] Social History Tobacco Use Types Packs/Day Years [...] and Family Not on file 05/31/2019 Attends Shinto Services Not on file 05/30 Active Member [...] Answer Date Recorded PHQ-2 Score 0 06/05/2020 [facility] of Occupat ional Health - Occupational [...] on file Legal 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 BALL WORKER Gender Identity Not on file Sexual [...] st Contact Info) Description 02/01/2024 3:00 PM BALL WORKER Office Visit [facility] 6341 [place] [phone] Manuel Ahn, [address] [place] [address] 02/02/2024 1:30 PM BALL WORKER Therapy Visit [facility] [address] [facility] [address] [place] [address] Alicja Roldan OT 909 [place] [address] 02/05/2024 8:00 PM BALL WORKER Therapy Visit [facility] [address] [place] [address] 02/13/2024 4:30 PM BALL WORKER Oncology Visit [facility] 909 [place] [address] Marian Agustin, NESSA AIRLINE LOUNGE RECEPTIONIST [address] [facility] [address] [place], [place] 69[address] 03/01/2024 7:00 AM BALL WORKER Office Visit [facility] [address] [place] [phone] Estella Hassan, [facility] 30[address] [place] [address] 03/23/2024 2:00 PM BALL WORKER Office Visit [facility] [address] [facility] [place] [address] Lizet Mann PA-C 717 [place] [address] 03/29/2024 3:30 PM BALL WORKER Office Visit [facility] 2945 [facility] 200 [place] [address] Hakeem Chacko MBBS 2945 [place] [address] 05/03/2024 3:00 PM BALL WORKER Office Visit [facility] [address] [place] [address] Gaurav Valenzuela, FISH ROD MAKER [address] 159714 05/22/2024 10:30 AM CDT Office Visit [address] [phone] [facility] 3033 [place] [address] 05/22/2024 11:30 AM CDT Office Visit [address] [address] Va Glez MD [address] [place] [address] [phone] documented as of this encounter Visit Diagnoses Not on filedocumented in this encounter Additional Health Concerns Infection Onset Date Last Indicated Resolved Time Rule Out COVID-19 06/22/2021 06/22/2021 06/23/2021 8:58 PM CDT Rule Out COVID-19 01/22/2022 01/22/2022 01/24/2022 1:05 PM BALL WORKER Rule Out COVID-19 01/25/2022 01/25/2022 01/25/2022 5:21 AM BALL WORKER Influenza 01/25/2022 01/25/2022 02/01/2022 11:4 1 PM BALL WORKER Rule Out COVID-19 07/29/2022 07/29/2022 07/31/2022 11:17 AM CDT Rule Out COVID-19 03/23/2023 03/23/2023 03/23/2023 6:30 PM BALL WORKER COVID-19 03/23/2023 03/23/2023 04/13/2023 11:4 0 PM BALL WORKER Rule Out COVID-19 06/05/2023 06/05/2023 06/05/2023 5:53 PM CDT Rule Out COVID-19 11/06/2023 11/06/2023 11/06/2023 11:05 PM CDT Rule Out COVID-19 11/20/2023 11/20/2023 11/20/2023 6:43 PM CDT Rule Out COVID-19 12/27/2023 12/27/2023 12/29/2023 1:37 PM CDT Assessment Noted Time PHQ-9 Depression Total Score: 2 06/06/19 12:47 PM CDT documented as of this encounter Care Teams Handkerchief Cutter Relationship Specialty [place] [address] [place] [address] PCP - General Family Practice 07/11/14 [place] [address] [place] [address] Assigned PCP 12/16/11 Kerry Bernal, IN[employer]IO Personal Advocate & Liaison (PAL) 01/08/19 07/10/23 Ravi Barillas DPM [address] [facility] [address] [place] [address] Assigned Musculoskeletal Provider 03/23/20 10/30/21 Christy Campuzano PA-C [address] [place] [address] [phone] Referring Physician Family Medicine 04/22/20 Hans Cannon MD [address] [place] [address] 964132 Resident Pulmonary Disease 04/22/20 Mitra Kendall, [facility] Lead Government Documents Librarian Primary Care - CC 01/08/1901/12 Burt Jovel MD Internal Medicine 05/08/20 12/13/23 Estella Hassan, [facility] [address] [place], [place] [phone] Pharmacist Pharmacist 05/26/20 Reji Chavez MD [address] [place] [phone] Assigned Heart and Vascular Provider 05/18/20 10/30/21 Elaina Moreno MD [address] [place] [address] Assigned Surgical Provider 05/18/20 11/19/22 Elaina Moreno MD 909 [place] [address] Cardiovascular & Thoracic Surgery 08/06/20 Kelsi Hassan MD [address] [place] [address] 284 [place] [address] Assigned Pulmonology Provider 06/28/21 02/05/22 John Webb MD [address] [place] [address] Cardiovascular Disease 08/25/21 John Webb MD [address] [place] [address] Cardiovascular Disease 08/25/21 Estella Hassan, [facility] [address] [place] [address] Assigned MTM Pharmacist 09/05/21 Nav Hughes MD [address] [place] [address] Assigned Heart and Vascular Provider 10/31/21 09/03/23 Cassandra Mendoza MD ORTHOPAEDIC SURGERY [address] [address] Assigned Musculoskeletal Provider 10/31/21 08/13/22 Estella Hassan, [facility] [address] [place] [address] Assigned MTM Pharmacist 12/09/21 Mitra Kendall, [facility] Lead Government Documents Librarian Primary Care - CC 01/26/2210/28 Lindsay Carey OD [address] [facility] [place] [address] Ophthalmology 01/29/22 Ravi Brownlee MD [address] [place] [address] 276 [place], [place] 459215 Assigned Pulmonology Provider 02/06/22 09/03/23 Arabella Fishman MA Financial Resource Worker 02/22/22 02/23/22 Richard Kam MD [address] [place] [address] [id number] Assigned Musculoskeletal Provider 08/14/22 [facility] [address] [facility] [address] [place] [phone] Pharmacist Pharmacist 11/22/22 01/09/23 [place] [address] [address] Assigned Neuroscience Provider 01/01/23 Rosemarie Mcdowell, RN [place] Diabetes Education 03/17/23 Ravi Brownlee MD [address] [place] [address] 276 [place], [place] 477775 Assigned Heart and Vascular Provider 09/04/23 01/03/24 Mitra Kendall, CAPACITY PLANNER Lead Government Documents Librarian Primary Care - CC 12/12/23 Lizet Mann PA-C [address] [place], [place] 004035 Assigned Cancer Care Provider 01/04/24 Ravi Brownlee MD 420 [facility] [address] [place], [place] [address] Assigned Pulmonology Provider 01/04/24 Nav Hughes MD [address] [facility] [address] [place] [address] Assigned Heart and Vascular Provider 01/04/24 Manuel Ahn OD 6341 [facility] SHANKAR RICHARDS [phone] Park Interpretive Ranger 01/05/24 Arabella Fishman MA Financial Resource Worker 01/06/24 Thalia Charles Anabel Pharmacist Pharmacy 01/26/24 documented as of this encounter
--- OUTSIDE RECORDS SUMMARY | 2024-01-31 20:12 | XMS_ITS | Encounter Summary ---
Author Organization [employer] Address [address] [place] [address] Care Team Providers Care Supervisor Cook Room Name Role Phone Va Glez MD Primary Care Provider Va Glez MD Unavailable Kerry Bernal RN Unavailable [phone] Ravi Barillas DPM Unavailable [phone] Christy Campuzano PA-C Unavailable Hans Cannon MD Unavailable Mitra Kendall LUBE MAN Unavailable Burt Jovel MD Unavailable Estella Hassan [facility] Unavailable Reji Chavez MD Unavailable Josh Cordero MD, Madhuri Unavailable [phone] Josh Cordero MD, Madhuri Unavailable [phone] Kelsi Hassan MD Unavailable [phone] John Webb MD Unavailable John Wbeb MD Unavailable [phone] Estella Hassan [facility] Unavailable [phone] Nav Hughes MD Unavailable [phone] Cassandra Mendoza MD Unavailable Estella Hassan H Unavailable Mitra Kendall LUBE MAN Unavailable Aurelio Lindsay Kenzie OD Unavailable Ravi Brownlee MD Unavailable [phone] Arabella Fishman MA Unavailable Richard Kam MD Unavailable Marisol Patel [facility] Unavailable [phone] Gaby Vila DO Unavailable Rosemarie Mcdowell RN Unavailable [phone] Ravi Brownlee MD Unavailable Mitra Kendall LUBE MAN Unavailable Lizet Mann PA-C Unavailable Ravi Brownlee MD Unavailable [phone] Nav Hughes MD Unavailable [phone] Manuel Ahn OD Unavailable Arabella Fihsman MA Unavailable [phone] Thalia Charles [facility] Unavailable Unavailable Encounter Details Date Type Department Care Team (Late st Contact Info) Description 07/01/2020 [facility] [address] [place] [phone] Elaina Moreno MD [address] [place] [address] Social History Tobacco Use Types Packs/Day [...] Answer Date Recorded PHQ-2 Score 0 06/05/2020 [facility] of Occupat ional Health - Occupational Stress [...] file Legal 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 MANAGER ORANGE Gender Identity Not on file Sexual Orientation [...] Contact Info) Description 02/01/2024 3:00 PM MANAGER ORANGE Office Visit [facility] [address] [place] [phone] Manuel Ahn, [address] [place] [address] 02/02/2024 1:30 PM MANAGER ORANGE Therapy Visit [facility] [address] [facility] [address] [place] [phone] Alicja Roldan OT 909 [place] [address] 02/05/2024 8:00 PM MANAGER ORANGE Therapy Visit [facility] [address] [place] [phone] 02/13/2024 4:30 PM MANAGER ORANGE Oncology Visit [facility] 9[address] [place] [phone] Marian Agustin, NESSA BREAD WRAPPING MACHINE FEEDER [address] [facility] 207 [place], [place] [address] 03/01/2024 7:00 AM MANAGER ORANGE Office Visit [facility] [address] [place] [phone] Estella Hassan, [facility] 3033 [place] [address] 03/23/2024 2:00 PM MANAGER ORANGE Office Visit [facility] [address] [place] [address] Lizet Mann PA-C 717 [place] [address] 03/29/2024 3:30 PM MANAGER ORANGE Office Visit [facility] 2945 [facility] 200 [place] [phone] Hakeem Chacko MBBS 2945 [place] [address] 05/03/2024 3:00 PM MANAGER ORANGE Office Visit [facility] [address] [place] [phone] Gaurav Valenzuela, MAINTENANCE SUPERVISOR [facility] [address] [place] [address] 05/22/2024 10:30 AM CDT Office Visit [address] [phone] Estella Hassan, [facility] [address] [place] [address] 05/22/2024 11:30 AM CDT Office Visit [address] [address] Va Glez MD [address] [place] [address] [phone] documented as of this encounter Visit Diagnoses Not on filedocumented in this encounter Additional Health Concerns Infection Onset Date Last Indicated Resolved Time Rule Out COVID-19 06/22/2021 06/22/2021 06/23/2021 8:58 PM CDT Rule Out COVID-19 01/22/2022 01/22/2022 01/24/2022 1:05 PM MANAGER ORANGE Rule Out COVID-19 01/25/2022 01/25/2022 01/25/2022 5:21 AM MANAGER ORANGE Influenza 01/25/2022 01/25/2022 02/01/2022 11:4 1 PM MANAGER ORANGE Rule Out COVID-19 07/29/2022 07/29/2022 07/31/2022 11:17 AM CDT Rule Out COVID-19 03/23/2023 03/23/2023 03/23/2023 6:30 PM MANAGER ORANGE COVID-19 03/23/2023 03/23/2023 04/13/2023 11:4 0 PM MANAGER ORANGE Rule Out COVID-19 06/05/2023 06/05/2023 06/05/2023 5:53 PM CDT Rule Out COVID-19 11/06/2023 11/06/2023 11/06/2023 11:05 PM CDT Rule Out COVID-19 11/20/2023 11/20/2023 11/20/2023 6:43 PM CDT Rule Out COVID-19 12/27/2023 12/27/2023 12/29/2023 1:37 PM CDT Assessment Noted Time PHQ-9 Depression Total Score: 2 06/06/19 21 12:47 PM CDT documented as of this encounter Care Teams Supervisor Cook Room Relationship Specialty [place] [address] [place] [address] PCP - General Family Practice 07/11/14 [place] [address] [place] [address] Assigned PCP 12/16/11 Kerry Bernal RN Personal Advocate & Liaison (PAL) 01/08/19 07/10/23 Ravi Barillas DPM [address] [facility] [address] [place] [address] Assigned Musculoskeletal Provider 03/23/20 10/30/21 Christy Campuzano PA-C [address] [place] [address] [id number] Referring Physician Family Medicine 04/22/20 Hans Cannon MD [address] [place] [address] [id number] Resident Pulmonary Disease 04/22/20 [facility]all[facility] Academic Associate Primary Care - CC 01/08/1901/12 Burt Jovel MD Internal Medicine 05/08/20 12/13/23 Estella Hassan, [facility] [address] [place], [place] 612916 Pharmacist Pharmacist 05/26/20 Reji Chavez MD [address] [place] [phone] Assigned Heart and Vascular Provider 05/18/20 10/30/21 Elaina Moreno MD [address] [place] [address] Assigned Surgical Provider 05/18/20 11/19/22 Elaina Moreno MD 909 [place] [address] Cardiovascular & Thoracic Surgery 08/06/20 Kelsi Hassan MD [address] [place] [address] 284 [place] [address] Assigned Pulmonology Provider 06/28/21 02/05/22 John Webb MD [address] [place] [address] Cardiovascular Disease 08/25/21 John Webb MD [address] [place] [address] Cardiovascular Disease 08/25/21 Estella Hassan, [facility] [address] [place] [address] Assigned MTM Pharmacist 09/05/21 Nav Hughes MD [address] [place] [address] Assigned Heart and Vascular Provider 10/31/21 09/03/23 Cassandra Mendoza MD ORTHOPAEDIC SURGERY [address] [address] Assigned Musculoskeletal Provider 10/31/21 08/13/22 Estella Hassan, [facility] [address] [place] [address] Assigned MTM Pharmacist 12/09/21 Mit[facility] Kendall, [facility] Academic Associate Primary Care - CC 01/26/2210/28 Lindsay Carey OD [address] [facility] [address] Ophthalmology 01/29/22 Ravi Brownlee MD [address] [place] [address] 276 [place], [place] 247885 Assigned Pulmonology Provider 02/06/22 09/03/23 Arabella Fishman MA Financial Resource Worker 02/22/22 02/23/22 Richard Kam MD [address] [place] [address] [id number] Assigned Musculoskeletal Provider 08/14/22 [facility] [address] [facility] [facility] [address] [place] [phone] Pharmacist Pharmacist 11/22/22 01/09/23 [place] [address] [address] Assigned Neuroscience Provider 01/01/23 Rosemarie Mcdowell, RN Supervisor Drying And Softening Diabetes Education 03/17/23 Ravi Brownlee MD [address] [place] [address] 276 [place], [place] 245295 Assigned Heart and Vascular Provider 09/04/23 01/03/24 [facility]all, [facility] Academic Associate Primary Care - CC 12/12/23 Lizet Mann PA-C 717 [place] [address] Assigned Cancer Care Provider 01/04/24 Ravi Brownlee MD 420 [facility] [address] [place], [place] 812955 Assigned Pulmonology Provider 01/04/24 Nav Hughes MD 6[address] [facility] [place] 047035 Assigned Heart and Vascular Provider 01/04/24 Manuel Ahn OD 6341 [facility] [place] [id number] Instrument Designer 01/05/24 Arabella Fishman MA Financial Resource Worker 01/06/24 Thalia Charles [facility] Pharmacist Pharmacy 01/26/24 documented as of this encounter
[2024-01-31 20:13] LABS: Basophils Absolute Auto 0.02 K/uL (0.00-0.30); Basophils Percent Auto 0.3 % (0.0-3.0); Eosinophils Absolute Auto 0.15 K/uL (0.00-0.50); Eosinophils Percent Auto 2.4 % (0.0-7.0); Hematocrit 40.4 % (37.0-53.0); Hemoglobin* 13.5 gm/dL (13.5-17.5); Lymphocytes Percent Auto 17.2 % (20-44); Mean Corpuscular HGB Conc 33 gm/dL (32-36); Mean Corpuscular Hemoglobin 28 pg (26-34); Mean Corpuscular Volume 83 fL (80-100); Monocytes Percent Auto 7.4 % (0.0-11.0); Neutrophils Percent Auto 72.7 % (42.0-72.0); Platelet Count* 206 K/uL (140-440); RDW Coefficient of Variation % 13.3 % (11.5-15.5); Red Blood Count 4.89 m/uL (4.30-5.90); White Blood Count* 6.35 K/uL (4.50-11.00)
--- OUTSIDE RECORDS SUMMARY | 2024-01-31 20:13 | XMS_ITS | Encounter Summary ---
Author Organization [facility] Address [address] [place] [address] Care Team Providers Care Rubber Stamps And Dies Supervisor Name Role Phone Va Glez MD Primary Care Provider Va Glez MD Unavailable Kerry Bernal RN Unavailable [phone] Ravi Barillas DPM Unavailable [phone] Christy Campuzano PA-C Unavailable Hans Cannon MD Unavailable [phone] Mitra Kendall EXPERIMENTAL MECHANIC ELECTRICAL Unavailable [phone] Burt Jovel MD Unavailable [phone] Estella Hassan [facility] Unavailable Reji Chavez MD Unavailable Josh Cordero MD, Madhuri Unavailable [phone] Josh Cordero MD, Madhuri Unavailable [phone] Kelsi Hassan MD Unavailable [phone] John Webb MD Unavailable John Webb MD Unavailable Estella Hassan [facility] Unavailable Nav Hughes MD Unavailable [phone] Cassandra Mendoza MD Unavailable Estella Hassan H Unavailable Mitra Kendall EXPERIMENTAL MECHANIC ELECTRICAL Unavailable Aurelio Lindsay Bartone OD Unavailable Ravi Brownlee MD Unavailable Arabella Fishman MA Unavailable [phone] Richard Kam MD Unavailable Marisol Patel [facility] Unavailable [phone] Gaby Vila DO Unavailable [phone] Rosemarie Mcdowell RN Unavailable Ravi Brownlee MD Unavailable Mitra Kendall EXPERIMENTAL MECHANIC ELECTRICAL Unavailable Lizet Mann PA-C Unavailable Ravi Brownlee MD Unavailable [phone] Nav Hughes MD Unavailable [phone] Manuel Ahn OD Unavailable [phone] Arabella Fishman MA Unavailable [phone] Thalia Charles [facility] Unavailable Unavailable Encounter Details Date Type Department Care Team (Late st Contact Info) Description 06/09/2020 [facility] Medical Advice [facility] [address] [address] Ravi Barillas DPM [address] [facility] [address] [place] [address] Social History Tobacco Use Types Packs/Day Years [...] Answer Date Recorded PHQ-2 Score 0 06/05/2020 [facility] of Occupat ional Health - Occupational [...] on file Legal 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 MOBILITY ARCHITECT MANAGER Gender Identity Not on file Sexual [...] st Contact Info) Description 02/01/2024 3:00 PM MOBILITY ARCHITECT MANAGER Office Visit [facility] [address] [place] [phone] Manuel Ahn, 6[address] [place] [address] 02/02/2024 1:30 PM MOBILITY ARCHITECT MANAGER Therapy [facility] [address] [facility] [address] [place] [phone] Alicja Roldan, OT 909 [place] [address] 02/05/2024 8:00 PM MOBILITY ARCHITECT MANAGER Therapy [facility] [address] [place] [phone] 02/13/2024 4:30 PM MOBILITY ARCHITECT MANAGER Oncology [facility] 909 [place] [phone] Marian Agustin APRN EMBEDDED SOFTWARE MANAGER [address] [facility] 207 [place], [place] [address] 03/01/2024 7:00 AM MOBILITY ARCHITECT MANAGER Office [facility] [address] [place] [phone] Estella Hassan, [facility] 5160 [place] [address] 03/23/2024 2:00 PM MOBILITY ARCHITECT MANAGER Office Visit [facility] [address] [place] [address] Lizet Mann PA-C 717 [place] [address] 03/29/2024 3:30 PM MOBILITY ARCHITECT MANAGER Office Visit [facility] 2945 [facility] 200 [place] [phone] Hakeem Chacko MBBS 2945 [place] [address] 05/03/2024 3:00 PM MOBILITY ARCHITECT MANAGER Office Visit [facility] [address] [place] [phone] Gaurav Valenzuela, MANAGER LEASING [address] 0569[address] 05/22/2024 10:30 AM CDT Office Visit [address] [phone] Estella Hassan, [facility] 3033 [place] [address] 05/22/2024 11:30 AM CDT Office Visit [address] [address] Va Glez MD [address] [place] [address] [phone] documented as of this encounter Visit Diagnoses Not on filedocumented in this encounter Additional Health Concerns Infection Onset Date Last Indicated Resolved Time Rule Out COVID-19 06/22/2021 06/22/2021 06/23/2021 8:58 PM CDT Rule Out COVID-19 01/22/2022 01/22/2022 01/24/2022 1:05 PM MOBILITY ARCHITECT MANAGER Rule Out COVID-19 01/25/2022 01/25/2022 01/25/2022 5:21 AM MOBILITY ARCHITECT MANAGER Influenza 01/25/2022 01/25/2022 02/01/2022 11:4 1 PM MOBILITY ARCHITECT MANAGER Rule Out COVID-19 07/29/2022 07/29/2022 07/31/2022 11:17 AM CDT Rule Out COVID-19 03/23/2023 03/23/2023 03/23/2023 6:30 PM MOBILITY ARCHITECT MANAGER COVID-19 03/23/2023 03/23/2023 04/13/2023 11:4 0 PM MOBILITY ARCHITECT MANAGER Rule Out COVID-19 06/05/2023 06/05/2023 06/05/2023 5:53 PM CDT Rule Out COVID-19 11/06/2023 11/06/2023 11/06/2023 11:05 PM CDT Rule Out COVID-19 11/20/2023 11/20/2023 11/20/2023 6:43 PM CDT Rule Out COVID-19 12/27/2023 12/27/2023 12/29/2023 1:37 PM CDT Assessment Noted Time PHQ-9 Depression Total Score: 2 06/06/19 21 12:47 PM CDT documented as of this encounter Care Teams Rubber Stamps And Dies Supervisor Relationship Specialty [place] [address] [place] [address] PCP - General Family Practice 07/11/14 [place] [address] [place] [address] Assigned PCP 12/16/11 Kerry Bernal RN Personal Advocate & Liaison (PAL) 01/08/19 07/10/23 Ravi Barillas DPM [address] [facility] 300 [place] [address] Assigned Musculoskeletal Provider 03/23/20 10/30/21 Christy Campuzano PA-C [address] [place] [address] 100702 Referring Physician Family Medicine 04/22/20 Hans Cannon MD [address] [place] [address] 690312 Resident Pulmonary Disease 04/22/20 Mitra Kendall, [facility] Lead Wind Turbine Performance Engineer Primary Care - CC 01/08/1901/12 Burt Jovel MD Internal Medicine 05/08/20 12/13/23 Estella Hassan, [facility] [address] [place], [place] 973396 Pharmacist Pharmacist 05/26/20 Reji Chavez MD [address] [place] [phone] Assigned Heart and Vascular Provider 05/18/20 10/30/21 Elaina Moreno MD [address] [place] [address] Assigned Surgical Provider 05/18/20 11/19/22 Elaina Moreno MD 909 [place] [address] Cardiovascular & Thoracic Surgery 08/06/20 Kelsi Hassan MD 420 [facility] 284 [place] [address] Assigned Pulmonology Provider 06/28/21 02/05/22 John Webb MD [address] [place] 307075 Cardiovascular Disease 08/25/21 John Webb MD [address] [place] [address] Cardiovascular Disease 08/25/21 Estella Hassan, [facility] 30[address] [place] [address] Assigned MTM Pharmacist 09/05/21 Nav Hughes MD [address] [place] [address] Assigned Heart and Vascular Provider 10/31/21 09/03/23 Cassandra Mendoza MD ORTHOPAEDIC SURGERY [facility] [address] [address] Assigned Musculoskeletal Provider 10/31/21 08/13/22 Estella Hassan, [facility] [address] [place] [address] Assigned MTM Pharmacist 12/09/21 Mitra Kendall, [facility] Lead Wind Turbine Performance Engineer Primary Care - CC 01/26/2210/28 Lindsay Carey OD 3305 [facility] [place] [address] Ophthalmology 01/29/22 Ravi Brownlee MD [address] [place] [address] 276 [place] [address] Assigned Pulmonology Provider 02/06/22 09/03/23 Arabella Fishman MA Financial Resource Worker 02/22/22 02/23/22 Richard Kam MD [address] [place] [address] 018835 Assigned Musculoskeletal Provider 08/14/22 [facility] 1440 [facility] [place] [id number] Pharmacist Pharmacist 11/22/22 01/09/23 [place] [address] [address] Assigned Neuroscience Provider 01/01/23 Rosemarie Mcdowell, RN [place] Diabetes Education 03/17/23 Ravi Brownlee MD [address] [place] [address] 276 [place], [place] 519825 Assigned Heart and Vascular Provider 09/04/23 01/03/24 Mitra Kendall LSW Lead Wind Turbine Performance Engineer Primary Care - CC 12/12/23 Lizet Mann PA-C 717 [place] [address] Assigned Cancer Care Provider 01/04/24 Ravi Brownlee MD 420 [facility] 276 [place], [place] 263235 Assigned Pulmonology Provider 01/04/24 Nav Hughes MD 6405 [facility] [place] 742715 Assigned Heart and Vascular Provider 01/04/24 Manuel Ahn OD 6341 [facility] [place] [address] Concession Attendant 01/05/24 Arabella Fishman MA Financial Resource Worker 01/06/24 Thalia Charles [facility] Pharmacist Pharmacy 01/26/24 documented as of this encounter
--- OUTSIDE RECORDS SUMMARY | 2024-01-31 20:13 | XMS_ITS | Encounter Summary ---
Author Organization [place] Address [address] [place] [address] Care Team Providers Care Extraction Machine Operator Name Role Phone Va Glez MD Primary Care Provider Va Glez MD Unavailable Kerry Bernal RN Unavailable [phone] Ravi Barillas DPM Unavailable [phone] Christy CampuzanoC Unavailable [phone] Hans Cannon MD Unavailable Mitra Kendall [employer]USTOMS BROKER Unavailable Faith Pool CHW Unavailable Burt Jovel MD Unavailable Estella Hassan [facility] Unavailable [phone] Reji Chavez MD Unavailable Josh Cordero MD, Madhuri Unavailable [phone] Josh Cordero MD, Madhuri Unavailable [phone] Kelsi Hassan MD Unavailable [phone] John Webb MD Unavailable [phone] John Webb MD Unavailable [phone] Estella Hassan [facility] Unavailable [phone] Nav Hughes MD Unavailable [phone] Cassandra Mendoza MD Unavailable Estella Hassan [facility] Unavailable Mitra Kendall [employer] BROKER Unavailable Lindsay Carey OD Unavailable Ravi Brownlee MD Unavailable [phone] Arabella Fishman MA Unavailable [phone] Richard Kam MD Unavailable Marisol Patel [facility] Unavailable Gaby Vila DO Unavailable [phone] Rosemarie Mcdowell RN Unavailable [phone] Ravi Brownlee MD Unavailable Mitra Kendall [employer] Unavailable Lizet Mann PA-C Unavailable [phone] Ravi Brownlee MD Unavailable [phone] Nav Hughes MD Unavailable [phone] Manuel Ahn OD Unavailable Arabella Fishman MA Unavailable [phone] Thalia Charles [facility] Unavailable Unavailable Encounter Details Date Type Department Care Team (Late st Contact Info) Description 06/05/2020 [facility] [address] [address] Estella Hassan, [facility] [address] [place], [place] [address] Social History Tobacco Use Types Packs/Day Years [...] and Family Not on file 05/31/2019 Attends Faith Services Not on file 05/30 Active Member [...] Answer Date Recorded PHQ-2 Score 0 06/05/2020 [facility] [...] on file Legal 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 HOME DESIGNER Gender Identity Not on file Sexual Orientation Not on file Occupation Industry Job Start Date Job End Date Not on file Not on file Not on file Not on file COVID-19 Exposure Response Date Recorded In the last month, have you been in contact with someone who was confirmed or suspected to have Coronavirus / COVID-19? No / Unsure 06/05/2020 12:34 PM CDT documented as of this encounter Miscellaneous Notes * Telephone Encounter - John Medina RPH - 06/05/2020 1:59 PM CDT Called patient and clarified his question about timing of his Ozempic dose. He did take around 1 PMlast week when learning in clinic, but prefers to take in the morning. Stated okay to start taking in the morning as he is tolerating well. Tino Medina, PharmD, BCACP Medication Therapy Management Pharmacist Pager: [phone] documented in this encounter Plan of Treatment Upcoming Encounters Date Type Department Care Team (Late st Contact Info) Description 02/01/2024 3:00 PM HOME DESIGNER Office Visit [address] [phone] Manuel Ahn, [address] [place] [address] 02/02/2024 1:30 PM HOME DESIGNER Therapy Visit [facility] [place] [facility] [place] [address] [facility] [address] [place] [phone] Alicja Roldan, OT [address] [place], [place] [address] 02/05/2024 8:00 PM HOME DESIGNER Therapy Visit [facility] [place] [address] [facility] 103 [place] [phone] 02/13/2024 4:30 PM HOME DESIGNER Oncology Visit [facility] [address] [facility] [place] [phone] Marian Agustin APRN [facility] [address] [facility] 207 [place] [address] 03/01/2024 7:00 AM HOME DESIGNER Office Visit [facility] [address] [place] [address] Estella Hassan, [facility] [address] [place] [address] 03/23/2024 2:00 PM HOME DESIGNER Office Visit [facility] [address] [place] [address] [place] [address] Lizet Mann PA-C [address] [facility] [place] [address] 03/29/2024 3:30 PM HOME DESIGNER Office Visit [facility] [address] [facility] [address] [place] [phone] Hakeem Chacko MBBS 2945 [place] [address] 05/03/2024 3:00 PM HOME DESIGNER Office Visit [facility] [address] [facility] [place] [phone] Gaurav Valenzuela, ECONOMICS TEACHER [facility] [address] [facility] 106 [place] [address] 05/22/2024 10:30 AM CDT Office Visit [facility] [address] [place] [phone] Estella Hassan, [facility] [address] [place] [address] 05/22/2024 11:30 AM CDT Office Visit [facility] [address] [place] [address] [place] [address] [place] [address] documented as of this encounter Visit Diagnoses Not on filedocumented in this encounter Additional Health Concerns Infection Onset Date Last Indicated Resolved Time Rule Out COVID-19 06/22/2021 06/22/2021 06/23/2021 8:58 PM CDT Rule Out COVID-19 01/22/2022 01/22/2022 01/24/2022 1:05 PM HOME DESIGNER Rule Out COVID-19 01/25/2022 01/25/2022 01/25/2022 5:21 AM HOME DESIGNER Influenza 01/25/2022 01/25/2022 02/01/2022 11:4 1 PM HOME DESIGNER Rule Out COVID-19 07/29/2022 07/29/2022 07/31/2022 11:17 AM CDT Rule Out COVID-19 03/23/2023 03/23/2023 03/23/2023 6:30 PM HOME DESIGNER COVID-19 03/23/2023 03/23/2023 04/13/2023 11:4 0 PM HOME DESIGNER Rule Out COVID-19 06/05/2023 06/05/2023 06/05/2023 5:53 PM CDT Rule Out COVID-19 11/06/2023 11/06/2023 11/06/2023 11:05 PM CDT Rule Out COVID-19 11/20/2023 11/20/2023 11/20/2023 6:43 PM CDT Rule Out COVID-19 12/27/2023 12/27/2023 12/29/2023 1:37 PM CDT Assessment Noted Time PHQ-9 Depression Total Score: 2 06/06/19 12:47 PM CDT documented as of this encounter Care Teams Extraction Machine Operator Relationship Specialty [place] [address] [place] [address] PCP - General Family Practice 07/11/14 [place] [address] [place] [address] Assigned PCP 12/16/11 Kerry Bernal, INOCENCIO Personal Advocate & Liaison (PAL) 01/08/19 07/10/23 Ravi Barillas DPM [address] [facility] 300 [place] [address] Assigned Musculoskeletal Provider 03/23/20 10/30/21 Christy Campuzano PA-C [address] [place] [address] [id number] Referring Physician Family Medicine 04/22/20 Hans Cannon MD [address] [place] [address] Resident Pulmonary Disease 04/22/20 Mitra Kendall, [employer] Lead Credit Collections Specialist Primary Care - CC 01/08/1901/12 Faith Pool, W Community Health Worker 04/30/2006/05 Burt Jovel MD Internal Medicine 05/08/20 12/13/23 Estella Hassan, [facility] [address] [place] [address] Pharmacist Pharmacist 05/26/20 Reji Chavez MD [address] [place] [phone] Assigned Heart and Vascular Provider 05/18/20 10/30/21 Elaina Moreno MD [address] [place] [address] [id number] Assigned Surgical Provider 05/18/20 11/19/22 Elaina Moreno MD [address] [place] [address] Cardiovascular & Thoracic Surgery 08/06/20 Kelsi Hassan MD [address] [place] [address] 284 [place], [place] 84[address] Assigned Pulmonology Provider 06/28/21 02/05/22 Jhon Webb MD [address] [place] [place] [address] Cardiovascular Disease 08/25/21 John Webb MD [address] 859735 Cardiovascular Disease 08/25/21 Estella Hassan, [facility] [address] [place] [address] Assigned MTM Pharmacist 09/05/21 Nav Hughes MD [address] [place] [address] Assigned Heart and Vascular Provider 10/31/21 09/03/23 Cassandra Mendoza MD ORTHOPAEDIC SURGERY [address] [address] Assigned Musculoskeletal Provider 10/31/21 08/13/22 Estella Hassan, [facility] [address] [place] [address] Assigned MTM Pharmacist 12/09/21 Mitra Kendall, [facility] Lead Credit Collections Specialist Primary Care - CC 01/26/2210/28 Lindsay Carey OD 3305 [facility] [place] [address] Ophthalmology 01/29/22 Ravi Brownlee MD 420 [facility] 276 [place] [address] Assigned Pulmonology Provider 02/06/22 09/03/23 Arabella Fishman MA Financial Resource Worker 02/22/22 02/23/22 Richard Kam MD 500 [place] [address] Assigned Musculoskeletal Provider 08/14/22 Marisol Patel, [facility] 14[address] [facility] [place] [place] [phone] Pharmacist Pharmacist 11/22/22 01/09/23 [place] [address] [place] PENA, [address] [address] Assigned Neuroscience Provider 01/01/23 Rosemarie Mcdowell, RN Family Assessment Worker Diabetes Education 03/17/23 Ravi Brownlee MD [address] [place] [address] Assigned Heart and Vascular Provider 09/04/23 01/03/24 Mitra Kendall, [facility] Lead Credit Collections Specialist Primary Care - CC 12/12/23 Lizet Mann PA-C 717 [place], [place] 169[address] Assigned Cancer Care Provider 01/04/24 Ravi Brownlee MD [address] [place] [address] Assigned Pulmonology Provider 01/04/24 Nav Hughes MD [address] [place] [address] [place] 353205 Assigned Heart and Vascular Provider 01/04/24 Manuel Ahn OD [address]341 [facility] [place] [place] [id number] Plastic Products Sales Representative 01/05/24 Arabella Fishman MA Financial Resource Worker 01/06/24 Thalia Charles [facility] Pharmacist Pharmacy 01/26/24 documented as of this encounter
--- OUTSIDE RECORDS SUMMARY | 2024-01-31 20:13 | XMS_ITS | Encounter Summary ---
Author Organization [place] Address [address] [place] [address] Care Team Providers Care Screening Tech Name Role Phone Va Glez MD Primary Care Provider [phone] Va Glez MD Unavailable Kerry Bernal RN Unavailable [phone] Ravi Barillas DPM Unavailable [phone] Christy Campuzano PA-C Unavailable Hans Cannon MD Unavailable Mitra Kendall PROJECT DEVELOPMENT ENGINEER Unavailable Burt Jovel MD Unavailable Estella Hassan [facility] Unavailable Reji Chavez MD Unavailable Josh Cordero MD, Madhuri Unavailable [phone] Josh Cordero MD, Madhuri Unavailable [phone] Kelsi Hassan MD Unavailable [phone] John Webb MD Unavailable [phone] John Webb MD Unavailable Estella Hassan [facility] Unavailable Nav Hughes MD Unavailable [phone] Cassandra Mendoza MD Unavailable [phone] Estella Hassan [facility] Unavailable Mitra Kendall PROJECT DEVELOPMENT ENGINEER Unavailable Lindsay Carey OD Unavailable [phone] PortlandRavi bajwa MD Unavailable Arabella Fishman MA Unavailable [phone] Richard Kam MD Unavailable Marisol Patel [facility] Unavailable Gaby Vila DO Unavailable Rosemarie Mcdowell RN Unavailable Ravi Brownlee MD Unavailable Mitra Kendall PROJECT DEVELOPMENT ENGINEER Unavailable Lizet Mann PA-C Unavailable Ravi Brownlee MD Unavailable Nav Hughes MD Unavailable [phone] Manuel Ahn OD Unavailable Arabella Fishman MA Unavailable [phone] Thalia Charles [facility] Unavailable Unavailable Encounter Details Date Type Department Care Team (Late st Contact Info) Description 06/09/2020 [facility] Medical Advice [address] [address] Estella Hassan, [facility] [address] [place] [address] Social History Tobacco Use Types Packs/Day Years [...] and Family Not on file 05/31/2019 Attends [employer] Services Not on file 05/30 Active Member [...] on file Legal 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 CREATIVE MANAGER Gender Identity Not on file Sexual [...] st Contact Info) Description 02/01/2024 3:00 PM CREATIVE MANAGER Office Visit [facility] 6[address] [place] [phone] Manuel Ahn, [address] [place] [address] 02/02/2024 1:30 PM CREATIVE MANAGER Therapy Visit [facility] [address] [facility] [address] [place] [address] Alicja Roldan OT 909 [place] [address] 02/05/2024 8:00 PM CREATIVE MANAGER Therapy Visit [facility] [address] [place] [phone] 02/13/2024 4:30 PM CREATIVE MANAGER Oncology Visit [facility] 909 [place] [address] Marian Agustin, NESSA MANAGER ENVIRONMENTAL [address] [facility] 207 [place], [place] [address] 03/01/2024 7:00 AM CREATIVE MANAGER Office Visit [facility] [address] [place] [phone] Estella Hassan, [facility] [address] [place] [address] 03/23/2024 2:00 PM CREATIVE MANAGER Office Visit [facility] [address] [facility] [place] [address] Lizet Mann PA-C 717 [place] [address] 03/29/2024 3:30 PM CREATIVE MANAGER Office Visit [facility] 2945 [facility] 200 [place] [address] Hakeem Chacko MBBS 2945 [place] [address] 05/03/2024 3:00 PM CREATIVE MANAGER Office Visit [facility] [address] [place] [phone] Gaurav Valenzuela, DATA REPORT ANALYST [address] [address] 05/22/2024 10:30 AM CDT Office Visit [address] [phone] [facility] [address] [place] [address] 05/22/2024 11:30 AM CDT Office Visit [address] [address] Va Glez MD [address] [place] [address] [id number] documented as of this encounter Visit Diagnoses Not on filedocumented in this encounter Additional Health Concerns Infection Onset Date Last Indicated Resolved Time Rule Out COVID-19 06/22/2021 06/22/2021 06/23/2021 8:58 PM CDT Rule Out COVID-19 01/22/2022 01/22/2022 01/24/2022 1:05 PM CREATIVE MANAGER Rule Out COVID-19 01/25/2022 01/25/2022 01/25/2022 5:21 AM CREATIVE MANAGER Influenza 01/25/2022 01/25/2022 02/01/2022 11:4 1 PM CREATIVE MANAGER Rule Out COVID-19 07/29/2022 07/29/2022 07/31/2022 11:17 AM CDT Rule Out COVID-19 03/23/2023 03/23/2023 03/23/2023 6:30 PM CREATIVE MANAGER COVID-19 03/23/2023 03/23/2023 04/13/2023 11:4 0 PM CREATIVE MANAGER Rule Out COVID-19 06/05/2023 06/05/2023 06/05/2023 5:53 PM CDT Rule Out COVID-19 11/06/2023 11/06/2023 11/06/2023 11:05 PM CDT Rule Out COVID-19 11/20/2023 11/20/2023 11/20/2023 6:43 PM CDT Rule Out COVID-19 12/27/2023 12/27/2023 12/29/2023 1:37 PM CDT Assessment Noted Time PHQ-9 Depression Total Score: 2 06/06/19 12:47 PM CDT documented as of this encounter Care Teams Screening Tech Relationship Specialty [place] [address] [place] [address] PCP - General Family Practice 07/11/14 [place] [address] [place] [address] Assigned PCP 12/16/11 Kerry Bernal, INOCENCIO Personal Advocate & Liaison (PAL) 01/08/19 07/10/23 Ravi Barillas DPM [address] [facility] [address] [place] [address] Assigned Musculoskeletal Provider 03/23/20 10/30/21 Christy Campuzano PA-C [address] [place] [address] [id number] Referring Physician Family Medicine 04/22/20 Hans Cannon MD [address] [place] [address] [id number] Resident Pulmonary Disease 04/22/20 Mitra Kendall, [facility] Lead Dry Cleaning Attendant Primary Care - CC 01/08/1901/12 Burt Jovel MD Internal Medicine 05/08/20 12/13/23 Estella Hassan, [facility] [address] [place], [place] 4[address] Pharmacist Pharmacist 05/26/20 Reji Chavez MD [address] [place] [address] Assigned Heart and Vascular Provider 05/18/20 10/30/21 Elaina Moreno MD [address] [place] [address] Assigned Surgical Provider 05/18/20 11/19/22 Elaina Moreno MD 909 [place] [address] Cardiovascular & Thoracic Surgery 08/06/20 Kelsi Hassan MD [address] [place] [address] 284 [place] [address] Assigned Pulmonology Provider 06/28/21 02/05/22 John Webb MD [address] [place] [address] Cardiovascular Disease 08/25/21 John Webb MD [address] [place] [address] Cardiovascular Disease 08/25/21 Estella Hassan, [facility] [address] [place] [address] Assigned MTM Pharmacist 09/05/21 Nav Hughes MD [address] [place] [address] Assigned Heart and Vascular Provider 10/31/21 09/03/23 Cassandra Mendoza MD ORTHOPAEDIC SURGERY [address] [address] Assigned Musculoskeletal Provider 10/31/21 08/13/22 Estella Hassan, [facility] [address] [place] [address] Assigned MTM Pharmacist 12/09/21 Mitra Kendall, [facility] Lead Dry Cleaning Attendant Primary Care - CC 01/26/2210/28 Lindsay Carey OD [address] [facility] [place] [address] Ophthalmology 01/29/22 Ravi Brownlee MD [address] [place] [address] 276 [place], [place] [address] Assigned Pulmonology Provider 02/06/22 09/03/23 Arabella Fishman MA Financial Resource Worker 02/22/22 02/23/22 Richard Kam MD [address] [place] [address] 878595 Assigned Musculoskeletal Provider 08/14/22 [facility] [address] [facility] [address] [place] [phone] Pharmacist Pharmacist 11/22/22 01/09/23 [place] [address] [address] Assigned Neuroscience Provider 01/01/23 Rosemarie Mcdowell, RN Loader Technician Diabetes Education 03/17/23 Ravi Brownlee MD [address] [place] [address] 276 [place], [place] 415475 Assigned Heart and Vascular Provider 09/04/23 01/03/24 Mitra Kendall, PROJECT DEVELOPMENT ENGINEER Lead Dry Cleaning Attendant Primary Care - CC 12/12/23 Lizet Mann PA-C 717 [place], [place] 638015 Assigned Cancer Care Provider 01/04/24 Ravi Brownlee MD 420 [facility] [address] [place], [place] [address] Assigned Pulmonology Provider 01/04/24 Nav Hughes MD 6405 [facility] [address] [place] [id number] Assigned Heart and Vascular Provider 01/04/24 Manuel Ahn OD [address] [facility] SHANKAR RICHARDS [id number] Dairy Bar Manager 01/05/24 Arabella Fishman MA Financial Resource Worker 01/06/24 Thalia Charles Anabel Pharmacist Pharmacy 01/26/24 documented as of this encounter
--- OUTSIDE RECORDS SUMMARY | 2024-01-31 20:13 | XMS_ITS | Encounter Summary ---
Author Organization [facility] Address [address] [place] [address] Care Team Providers Care Ehr Trainer Name Role Phone Va Glez MD Primary Care Provider Va Glez MD Unavailable Kerry Bernal RN Unavailable [phone] Ravi Barillas DPM Unavailable [phone] Christy Campuzano PA-C Unavailable Hans Cannon MD Unavailable [phone] Mitra Kendall MOVER HELPER Unavailable Burt Jovel MD Unavailable [phone] Estella Hassan [facility] Unavailable Reji Chavez MD Unavailable Josh Cordero MD, Madhuri Unavailable [phone] Josh Cordero MD, Madhuri Unavailable [phone] Kelsi Hassan MD Unavailable [phone] John Webb MD Unavailable John Webb MD Unavailable Estella Hassan [facility] Unavailable Nav Hughes MD Unavailable [phone] Cassandra Mendoza MD Unavailable Estella Hassan [facility] Unavailable [phone] Mitra Kendall MOVER HELPER Unavailable [phone] Lindsay Carey OD Unavailable JeromeRavi bajaw MD Unavailable [phone] Arabella Fishman MA Unavailable [phone] Richard Kam MD Unavailable Marisol Patel [facility] Unavailable [phone] Gaby Vila DO Unavailable Rosemarie Mcdowell RN Unavailable [phone] Ravi Brownlee MD Unavailable [phone] Mitra Kendall MOVER HELPER Unavailable Lizet Mann PA-C Unavailable [phone] Ravi Brownlee MD Unavailable Nav Hughes MD Unavailable [phone] Manuel Ahn OD Unavailable Arabella Fishman MA Unavailable [phone] Thalia Charles [facility] Unavailable Unavailable Encounter Details Date Type Department Care Team (Late st Contact Info) Description 06/09/2020 [facility] [place] Medical Advice [address] [address] Estella Hassan, [facility] [address] [place] [address] Social History Tobacco Use Types Packs/Day Years [...] Answer Date Recorded PHQ-2 Score 0 06/05/2020 [facility] [...] on file Legal 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 CLAIM TAKER Gender Identity Not on file Sexual Orientation [...] st Contact Info) Description 02/01/2024 3:00 PM CLAIM TAKER Office Visit [facility] [address] [place] [phone] Manuel Ahn, [address] [place] [address] 02/02/2024 1:30 PM CLAIM TAKER Therapy Visit [facility] [address] [place] [phone] Alicja Roldan OT [address] [place] [address] 02/05/2024 8:00 PM CLAIM TAKER Therapy Visit [facility] [address] [place] [phone] 02/13/2024 4:30 PM CLAIM TAKER Oncology Visit [facility] 9[address] [place] [phone] Marian Agustin, NESSA GREASE MAKER HEAD [address] [facility] 207 [place], [place] [address] 03/01/2024 7:00 AM CLAIM TAKER Office Visit [facility] [address] [place] [phone] Estella Hassan, [facility] [address] [place] [address] 03/23/2024 2:00 PM CLAIM TAKER Office [facility] [address] [facility] [place] [address] Lizet Mann PA-C 7[address] [place] [address] 03/29/2024 3:30 PM CLAIM TAKER Office Visit [facility] 2945 [facility] 200 [place] [phone] Hakeem Chacko MBBS [address] [place] [address] 05/03/2024 3:00 PM CLAIM TAKER Office Visit [facility] [address] [place] [phone] Gaurav Valenzuela, DIPLOMATIC INTERPRETER/TRANSLATOR [address] 863104 05/22/2024 10:30 AM CDT Office Visit [address] [phone] [facility] [address] [place] [address] 05/22/2024 11:30 AM CDT Office Visit [address] [address] Va Glez MD [address] [place] [address] [phone] documented as of this encounter Visit Diagnoses Not on filedocumented in this encounter Additional Health Concerns Infection Onset Date Last Indicated Resolved Time Rule Out COVID-19 06/22/2021 06/22/2021 06/23/2021 8:58 PM CDT Rule Out COVID-19 01/22/2022 01/22/2022 01/24/2022 1:05 PM CLAIM TAKER Rule Out COVID-19 01/25/2022 01/25/2022 01/25/2022 5:21 AM CLAIM TAKER Influenza 01/25/2022 01/25/2022 02/01/2022 11:4 1 PM CLAIM TAKER Rule Out COVID-19 07/29/2022 07/29/2022 07/31/2022 11:17 AM CDT Rule Out COVID-19 03/23/2023 03/23/2023 03/23/2023 6:30 PM CLAIM TAKER COVID-19 03/23/2023 03/23/2023 04/13/2023 11:4 0 PM CLAIM TAKER Rule Out COVID-19 06/05/2023 06/05/2023 06/05/2023 5:53 PM CDT Rule Out COVID-19 11/06/2023 11/06/2023 11/06/2023 11:05 PM CDT Rule Out COVID-19 11/20/2023 11/20/2023 11/20/2023 6:43 PM CDT Rule Out COVID-19 12/27/2023 12/27/2023 12/29/2023 1:37 PM CDT Assessment Noted Time PHQ-9 Depression Total Score: 2 06/06/19 12:47 PM CDT documented as of this encounter Care Teams Ehr Trainer Relationship Specialty [place] [address] [place] [address] PCP - General Family Practice 07/11/14 [place] [address] [place] [address] Assigned PCP 12/16/11 Kerry Bernal, INOCENCIO Personal Advocate & Liaison (PAL) 01/08/19 07/10/23 Ravi Barillas DPM [address] [facility] [address] [place] [address] Assigned Musculoskeletal Provider 03/23/20 10/30/21 Crhisty Campuzano PA-C [address] [place] [address] [id number] Referring Physician Family Medicine 04/22/20 Hans Cannon MD [address] [place] [address] 987422 Resident Pulmonary Disease 04/22/20 Mitra Kendall, [facility] Lead Sports Activities Foul Judge Primary Care - CC 01/08/1901/12 Burt Jovel MD Internal Medicine 05/08/20 12/13/23 Estella Hassan, [facility] [address] [place], [place] [phone] Pharmacist Pharmacist 05/26/20 Reji Chavez MD [address] [place] [phone] Assigned Heart and Vascular Provider 05/18/20 10/30/21 Elaina Moreno MD [address] [place] [address] Assigned Surgical Provider 05/18/20 11/19/22 Elaina Moreno MD 909 [place] [address] Cardiovascular & Thoracic Surgery 08/06/20 Kelsi Hassan MD [address] [place] [address] 284 [place] [address] Assigned Pulmonology Provider 06/28/21 02/05/22 John Webb MD [address] [place] [address] Cardiovascular Disease 08/25/21 John Webb MD [address] [place] [address] Cardiovascular Disease 08/25/21 Estella Hassan, [facility] [address] [place] [address] Assigned MTM Pharmacist 09/05/21 Nav Hughes MD [address] [place] [address] Assigned Heart and Vascular Provider 10/31/21 09/03/23 Cassandra Mendoza MD ORTHOPAEDIC SURGERY [address] [address] Assigned Musculoskeletal Provider 10/31/21 08/13/22 Estella Hassan, [facility] [address] [place] [address] Assigned MTM Pharmacist 12/09/21 Mitra Kendall, [facility] Lead Sports Activities Foul Judge Primary Care - CC 01/26/2210/28 Lindsay Carey OD [address] [place] [address] Ophthalmology 01/29/22 Ravi Brownlee MD [address] [place] [address] 276 [place], [place] 689905 Assigned Pulmonology Provider 02/06/22 09/03/23 Arabella Fishman MA Financial Resource Worker 02/22/22 02/23/22 Richard Kam MD [address] [place] [address] [id number] Assigned Musculoskeletal Provider 08/14/22 [facility] [address] [facility] [address] [place] [phone] Pharmacist Pharmacist 11/22/22 01/09/23 [place] [address] [address] Assigned Neuroscience Provider 01/01/23 Rosemarie Mcdowell, RN Coffee Roaster Diabetes Education 03/17/23 Ravi Brownlee MD [address] [place] [address] [address] [place], [place] 302085 Assigned Heart and Vascular Provider 09/04/23 01/03/24 Mitra Kendall, MOVER HELPER Lead Sports Activities Foul Judge Primary Care - CC 12/12/23 Lizet Mann PA-C [address] [place], [place] 169565 Assigned Cancer Care Provider 01/04/24 Ravi Brownlee MD [address] [facility] [address] [place], [place] [address] Assigned Pulmonology Provider 01/04/24 Nav Hughes MD 6405 [facility] [address] [place] 267445 Assigned Heart and Vascular Provider 01/04/24 Manuel Ahn OD [address] [facility] [place] [id number] Assembly Repairer 01/05/24 Arabella [place] MA Financial Resource Worker 01/06/24 Thalia Charles Anabel Pharmacist Pharmacy 01/26/24 documented as of this encounter
--- OUTSIDE RECORDS SUMMARY | 2024-01-31 20:13 | XMS_ITS | Encounter Summary ---
Author Organization [facility] Address [address] [place] [address] Care Team Providers Care Spinning Lathe Operator Name Role Phone Va Glez MD Primary Care Provider [phone] Va Glez MD Unavailable Kerry Bernal RN Unavailable [phone] Ravi Barillas DPM Unavailable [phone] Christy Campuzano PA-C Unavailable [phone] Hans Cannon MD Unavailable Mitra Kendall TELEVISION AGENT Unavailable Burt Jovel MD Unavailable Estella Hassan [facility] Unavailable Reji Chavez MD Unavailable Josh Cordero MD, Madhuri Unavailable [phone] Josh Cordero MD, Madhuri Unavailable [phone] eKlsi Hassan MD Unavailable [phone] John Webb MD Unavailable oJhn Webb MD Unavailable [phone] Estella Hassan [facility] Unavailable [phone] Nav Hughes MD Unavailable [phone] Cassandra Mendoza MD Unavailable [phone] Estella Hassan H Unavailable Mitra Kendall TELEVISION AGENT Unavailable Aurelio Lindsay Bartone OD Unavailable Ravi Brownlee MD Unavailable Arabella Fishman MA Unavailable [phone] Richard Kam MD Unavailable Marisol Patel [facility] Unavailable [phone] Gaby Vila DO Unavailable Rosemarie Mcdowell RN Unavailable [phone] Ravi Brownlee MD Unavailable Mitra Kendall TELEVISION AGENT Unavailable [phone] Lizet Mann PA-C Unavailable [phone] Ravi Brownlee MD Unavailable Nav Hughes MD Unavailable [phone] Manuel Ahn OD Unavailable [phone] Arabella Fishman MA Unavailable [phone] Thalia Charles [facility] Unavailable Unavailable Encounter Details Date Type Department Care Team (Late st Contact Info) Description 06/12/2020 [facility] Medical Advice [facility] [address] [address] Ravi Barillas DPM [address] [facility] [address] [place] [address] Social History Tobacco Use Types [...] and Family Not on file 05/31/2019 Attends [employer] Not on file 05/30 Active Member [...] Answer Date Recorded PHQ-2 Score 0 06/05/2020 [facility] [...] on file Legal 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 PROOF PLATE MAKER Gender Identity Not on file Sexual [...] st Contact Info) Description 02/01/2024 3:00 PM PROOF PLATE MAKER Office Visit [facility] [address] [place] [phone] Manuel Ahn, [address] [place] [address] 02/02/2024 1:30 PM PROOF PLATE MAKER Therapy Visit [facility] [address] [facility] [address] [place] [phone] Alicja Roldan, OT 909 [place] [address] 02/05/2024 8:00 PM PROOF PLATE MAKER Therapy Visit [facility] [address] [place] [phone] 02/13/2024 4:30 PM PROOF PLATE MAKER Oncology Visit [facility] 909 [place] [phone] Marian Agustin APRN FARM CROPS TEACHER [address] [place] [address] [facility] 207 [place], [place] [address] 03/01/2024 7:00 AM PROOF PLATE MAKER Office Visit [facility] [address] [place] [phone] Estella Hassan, [facility] [address] [place] [address] 03/23/2024 2:00 PM PROOF PLATE MAKER Office Visit [facility] [address] [place] [address] Lizet Mann PA-C 717 [place] [address] 03/29/2024 3:30 PM PROOF PLATE MAKER Office Visit [facility] 2945 [facility] 200 [place] [phone] Hakeem Chacko MBBS [address] [place] [address] 05/03/2024 3:00 PM PROOF PLATE MAKER Office Visit [facility] [address] [place] [phone] Gaurav Valenzuela, WINDOW TREATMENT INSTALLER [address] [address] 05/22/2024 10:30 AM CDT Office Visit [address] [phone] Estella Hassan, [facility] [address] [place] [address] 05/22/2024 11:30 AM CDT Office Visit [address] [address] Va Glez MD [address] [place] [address] [phone] documented as of this encounter Visit Diagnoses Not on filedocumented in this encounter Additional Health Concerns Infection Onset Date Last Indicated Resolved Time Rule Out COVID-19 06/22/2021 06/22/2021 06/23/2021 8:58 PM CDT Rule Out COVID-19 01/22/2022 01/22/2022 01/24/2022 1:05 PM PROOF PLATE MAKER Rule Out COVID-19 01/25/2022 01/25/2022 01/25/2022 5:21 AM PROOF PLATE MAKER Influenza 01/25/2022 01/25/2022 02/01/2022 11:4 1 PM PROOF PLATE MAKER Rule Out COVID-19 07/29/2022 07/29/2022 07/31/2022 11:17 AM CDT Rule Out COVID-19 03/23/2023 03/23/2023 03/23/2023 6:30 PM PROOF PLATE MAKER COVID-19 03/23/2023 03/23/2023 04/13/2023 11:4 0 PM PROOF PLATE MAKER Rule Out COVID-19 06/05/2023 06/05/2023 06/05/2023 5:53 PM CDT Rule Out COVID-19 11/06/2023 11/06/2023 11/06/2023 11:05 PM CDT Rule Out COVID-19 11/20/2023 11/20/2023 11/20/2023 6:43 PM CDT Rule Out COVID-19 12/27/2023 12/27/2023 12/29/2023 1:37 PM CDT Assessment Noted Time PHQ-9 Depression Total Score: 2 06/06/19 21 12:47 PM CDT documented as of this encounter Care Teams Spinning Lathe Operator Relationship Specialty [place] [address] [place] [address] PCP - General Family Practice 07/11/14 [place] [address] [place] [address] Assigned PCP 12/16/11 Kerry Bernal RN Personal Advocate & Liaison (PAL) 01/08/19 07/10/23 Ravi Barillas DPM [address] [facility] 300 [place] [address] Assigned Musculoskeletal Provider 03/23/20 10/30/21 Christy Campuzano PA-C [address] [place] [address] [id number] Referring Physician Family Medicine 04/22/20 Hans Cannon MD [address] [place] [address] 323852 Resident Pulmonary Disease 04/22/20 Mitra Kendall, [facility] Lead Pipeline Dispatch Operator Primary Care - CC 01/08/1901/12 Burt Jovel MD Internal Medicine 05/08/20 12/13/23 Estella Hassan, [facility] [address] [place], [place] [address] Pharmacist Pharmacist 05/26/20 Reji Chavez MD [address] [place] [phone] Assigned Heart and Vascular Provider 05/18/20 10/30/21 Elaina Moreno MD [address] [place] [address] Assigned Surgical Provider 05/18/20 11/19/22 Elaina Moreno MD 909 [place] [address] Cardiovascular & Thoracic Surgery 08/06/20 Kelsi Hassan MD 420 [facility] [address] [place] [address] Assigned Pulmonology Provider 06/28/21 02/05/22 John Webb MD [address] [place] [address] Cardiovascular Disease 08/25/21 John Webb MD [address] [place] [address] Cardiovascular Disease 08/25/21 Estella Hassan, [facility] [address] [place] [address] Assigned MTM Pharmacist 09/05/21 Nav Hughes MD [address] [place] [address] Assigned Heart and Vascular Provider 10/31/21 09/03/23 Cassandra Mendoza MD ORTHOPAEDIC SURGERY [facility] [address] Assigned Musculoskeletal Provider 10/31/21 08/13/22 Estella Hassan, [facility] [address] [place] [address] Assigned MTM Pharmacist 12/09/21 Mitra Kendall, [facility] Lead Pipeline Dispatch Operator Primary Care - CC 01/26/2210/28 Lindsay Carey OD [address] [facility] [place] [address] Ophthalmology 01/29/22 Ravi Brownlee MD [address] [place] [address] 276 [place] [address] Assigned Pulmonology Provider 02/06/22 09/03/23 Arabella Fishman MA Financial Resource Worker 02/22/22 02/23/22 Richard Kam MD [address] [place] [address] 887075 Assigned Musculoskeletal Provider 08/14/22 [facility] [address] [facility] [place] [phone] Pharmacist Pharmacist 11/22/22 01/09/23 [place] [address] [address] Assigned Neuroscience Provider 01/01/23 Rosemarie Mcdowell, RN Customer Data Technician Diabetes Education 03/17/23 Ravi Brownlee MD [address] [place] [address] 276 [place], [place] 6[address] Assigned Heart and Vascular Provider 09/04/23 01/03/24 Mitra Kendall LSW Lead Pipeline Dispatch Operator Primary Care - CC 12/12/23 Lizet Mann PA-C 7[address] [place] [address] Assigned Cancer Care Provider 01/04/24 Ravi Brownlee MD [address] [facility] [address] [place], [place] 9[address] Assigned Pulmonology Provider 01/04/24 Nav Hughes MD 6405 [facility] [place] 474025 Assigned Heart and Vascular Provider 01/04/24 Manuel Ahn OD 6341 [facility] [place] [address] Cash Shortage Investigator 01/05/24 Arabella Fishman MA Financial Resource Worker 01/06/24 Thalia Charles [facility] Pharmacist Pharmacy 01/26/24 documented as of this encounter
--- OUTSIDE RECORDS SUMMARY | 2024-01-31 20:13 | XMS_ITS | Encounter Summary ---
Author Organization [place] Address [address] [place] [address] Care Team Providers Care Mold Construction Supervisor Name Role Phone Va Glez MD Primary Care Provider Va Glez MD Unavailable Kerry Bernal RN Unavailable [phone] Ravi Barillas DPM Unavailable [phone] Christy CampuzanoC Unavailable Hans Cannon MD Unavailable Mitra Kendall BILINGUAL OPERATOR Unavailable Faith Pool CHW Unavailable Burt Jovel MD Unavailable Estella Hassan [facility] Unavailable [phone] Reji Chavez MD Unavailable [phone] Josh Cordero MD, Madhuri Unavailable [phone] Josh Cordero MD, Madhuri Unavailable [phone] Kelsi Hassan MD Unavailable [phone] John Webb MD Unavailable John Webb MD Unavailable Estella Hassan [facility] Unavailable Nav Hughes MD Unavailable [phone] Cassandra Mendoza MD Unavailable Estella Hassan [facility] Unavailable Mitra Kendall BILINGUAL OPERATOR Unavailable Lindsay Carey OD Unavailable [phone] Ravi Brownlee MD Unavailable Arabella Fishman MA Unavailable [phone] Richard Kam MD Unavailable Marisol Patel [facility] Unavailable [phone] Gaby Vila DO Unavailable [phone] Rosemarie Mcdowell RN Unavailable Ravi Brownlee MD Unavailable Mitra Kendall BILINGUAL OPERATOR Unavailable Lizet Mann PA-C Unavailable Ravi Brownlee MD Unavailable Nav Hughes MD Unavailable [phone] Manuel Ahn OD Unavailable Arabella Fishman MA Unavailable [phone] Thalia Charles [facility] Unavailable Unavailable Encounter Details Date Type Department Care Team (Late st Contact Info) Description 06/03/2020 Telephone [facility] [id number] [place] [phone] Va Glez MD [address] [place] [address] Social History Tobacco Use Types Packs/Day [...] and Family Not on file 05/31/2019 Attends [employer] Not on file 05/30 Active Member [...] Answer Date Recorded PHQ-2 Score 0 06/05/2020 [facility] [...] on file Legal 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 GRAPHICS EDITOR Gender Identity Not on file Sexual Orientation [...] st Contact Info) Description 02/01/2024 3:00 PM GRAPHICS EDITOR Office Visit [facility] 6[address] [place] [phone] [facility] [address] [place] [address] 02/02/2024 1:30 PM GRAPHICS EDITOR Therapy Visit [facility] [address] [facility] 300 [place] [phone] Alicja Roldan OT 909 [place] [address] 02/05/2024 8:00 PM GRAPHICS EDITOR Therapy Visit [facility] [address] [place] [address] 103 [place] [phone] 02/13/2024 4:30 PM GRAPHICS EDITOR Oncology Visit [facility] 909 [place] [phone] Marian Agustin APRN [facility] [address] [place] [address] [facility] [address] [place] [address] 03/01/2024 7:00 AM GRAPHICS EDITOR Office Visit [address] [phone] Estella Hassan, [facility] 3033 [place] [address] 03/23/2024 2:00 PM GRAPHICS EDITOR Office Visit [facility] [address] [place] [address] [place] [address] Lizet Mann PA-C [address] [place] [address] 03/29/2024 3:30 PM GRAPHICS EDITOR Office [facility] 2945 [facility] 200 [place] [phone] Hakeem Chacko MBBS 2945 [place] [address] 05/03/2024 3:00 PM GRAPHICS EDITOR Office Visit [facility] [address] [place] [phone] Gaurav Valenzuela, INCIDENT COORDINATOR [address] 988294 05/22/2024 10:30 AM CDT Office Visit [address] [phone] Estella Hassan, [place] [address] [place] [address] 05/22/2024 11:30 AM CDT Office Visit [address] [phone] Va Glez MD [address] [place] [address] [id number] documented as of this encounter Visit Diagnoses Not on filedocumented in this encounter Additional Health Concerns Infection Onset Date Last Indicated Resolved Time Rule Out COVID-19 06/22/2021 06/22/2021 06/23/2021 8:58 PM CDT Rule Out COVID-19 01/22/2022 01/22/2022 01/24/2022 1:05 PM GRAPHICS EDITOR Rule Out COVID-19 01/25/2022 01/25/2022 01/25/2022 5:21 AM GRAPHICS EDITOR Influenza 01/25/2022 01/25/2022 02/01/2022 11:4 1 PM GRAPHICS EDITOR Rule Out COVID-19 07/29/2022 07/29/2022 07/31/2022 11:17 AM CDT Rule Out COVID-19 03/23/2023 03/23/2023 03/23/2023 6:30 PM GRAPHICS EDITOR COVID-19 03/23/2023 03/23/2023 04/13/2023 11:4 0 PM GRAPHICS EDITOR Rule Out COVID-19 06/05/2023 06/05/2023 06/05/2023 5:53 PM CDT Rule Out COVID-19 11/06/2023 11/06/2023 11/06/2023 11:05 PM CDT Rule Out COVID-19 11/20/2023 11/20/2023 11/20/2023 6:43 PM CDT Rule Out COVID-19 12/27/2023 12/27/2023 12/29/2023 1:37 PM CDT Assessment Noted Time PHQ-9 Depression Total Score: 9 05/31/19 21 7:04 AM CDT documented as of this encounter Care Teams Mold Construction Supervisor Relationship Specialty [place] [address] [place] [address] PCP - General Family Practice 07/11/14 [place] [address] [place] [address] Assigned PCP 12/16/11 Kerry Bernal RN Personal Advocate & Liaison (PAL) 01/08/19 07/10/23 Ravi Barillas DPM [address] [facility] [address] [place] [address] Assigned Musculoskeletal Provider 03/23/20 10/30/21 Christy Campuzano PA-C [address] [place] [address]22 Referring Physician Family Medicine 04/22/20 Hans Cannon MD [address] [place] [address] 299122 Resident Pulmonary Disease 04/22/20 Mitra Kendall, [facility] Lead Wet Machine Cutter Primary Care - CC 01/08/1901/12 Faith Pool, [facility] Community Health Worker 04/30/2006/05 Burt Jovel MD Internal Medicine 05/08/20 12/13/23 Estella Hassan, [facility] [address] [place], [place] [phone] Pharmacist Pharmacist 05/26/20 Reji Chavez MD [address] [place] [phone] Assigned Heart and Vascular Provider 05/18/20 10/30/21 Elaina Moreno MD [address] [place] [address] Assigned Surgical Provider 05/18/20 11/19/22 Elaina Moreno MD [address] [place] [address] Cardiovascular & Thoracic Surgery 08/06/20 Kelsi Hassan MD 420 [facility] 284 [place] [address] Assigned Pulmonology Provider 06/28/21 02/05/22 John Webb MD [address] [address] Cardiovascular Disease 08/25/21 John Webb MD [address] [address] Cardiovascular Disease 08/25/21 Estella Hassan, [facility] 30[address] [place] [address] Assigned MTM Pharmacist 09/05/21 Nav Hughes MD [address] [place] [address] Assigned Heart and Vascular Provider 10/31/21 09/03/23 Cassandra Mendoza MD ORTHOPAEDIC SURGERY [address] [address] Assigned Musculoskeletal Provider 10/31/21 08/13/22 [facility] [address] [place] [address] Assigned MTM Pharmacist 12/09/21 Mitra Kendall, BILINGUAL OPERATOR Lead Wet Machine Cutter Primary Care - CC 01/26/2210/28 Lindsay Carey OD 3305 [facility] [place] [address] Ophthalmology 01/29/22 Ravi Brownlee MD [address] [place] [address] 798535 Assigned Pulmonology Provider 02/06/22 09/03/23 Arabella Fishman MA Financial Resource Worker 02/22/22 02/23/22 Richard Kam MD [address] [place] [address] Assigned Musculoskeletal Provider 08/14/22 [facility] 1440 [facility] [place] [address] Pharmacist Pharmacist 11/22/22 01/09/23 [place] [address] [place], [address] [address] Assigned Neuroscience Provider 01/01/23 Rosemarie Mcdowell, RN Biofuels Engineering Manager Diabetes Education 03/17/23 Ravi Brownlee MD [address] [place] [address] 788985 Assigned Heart and Vascular Provider 09/04/23 01/03/24 Mitra Kendall, BILINGUAL OPERATOR Lead Wet Machine Cutter Primary Care - CC 12/12/23 Lizet Mann PA-C [address] [place], [place] 878225 Assigned Cancer Care Provider 01/04/24 Ravi Brownlee MD 420 [facility] [address] [place], [place] 7225[address] Assigned Pulmonology Provider 01/04/24 Nav Hughes MD 6405 [facility] [address] [place], [place] 324[address] Assigned Heart and Vascular Provider 01/04/24 Manuel Ahn OD [address]341 [place], [place] 351062 Radiation Technician 01/05/24 Arabella Fishman MA Financial Resource Worker 01/06/24 Thalia Charles [facility] Pharmacist Pharmacy 01/26/24 documented as of this encounter
--- OUTSIDE RECORDS SUMMARY | 2024-01-31 20:13 | XMS_ITS | Encounter Summary ---
Author Organization [place] Address [address] [place] [address] Care Team Providers Care Central Station Operator Name Role Phone Va Glez MD Primary Care Provider Va Glez MD Unavailable Kerry Bernal RN Unavailable [phone] Ravi Barillas DPM Unavailable [phone] Christy CampuzanoC Unavailable Hans Cannon MD Unavailable Mitra Kendall LAWN MOWER SHARPENER Unavailable Faith Pool CHW Unavailable [phone] Burt Jovel MD Unavailable [phone] Estella Hassan [facility] Unavailable Reji Chavez MD Unavailable Josh Cordero MD, Madhuri Unavailable [phone] Josh Cordero MD, Madhuri Unavailable [phone] Kelsi Hassan MD Unavailable [phone] John Webb MD Unavailable John Webb MD Unavailable Estella Hassan [facility] Unavailable [phone] Nav Hughes MD Unavailable [phone] Cassandra Mendoza MD Unavailable Estella Hassan [facility] Unavailable Mitra Kendall LAWN MOWER SHARPENER Unavailable Lindsay Carey OD Unavailable Ravi Brownlee MD Unavailable Arabella Fishman MA Unavailable Richard Kam MD Unavailable Marisol Patel [facility] Unavailable [phone] Gaby Vila DO Unavailable Rosemarie Mcdowell RN Unavailable Ravi Brownlee MD Unavailable [phone] Mitra Kendall LAWN MOWER SHARPENER Unavailable Lizet Mann PA-C Unavailable Ravi Brownlee MD Unavailable Nav Hughes MD Unavailable [phone] Manuel Ahn OD Unavailable Arabella Fishman MA Unavailable [phone] Thalia Charles [facility] Unavailable Unavailable Encounter Details Date Type Department Care Team (Late st Contact Info) Description 06/03/2020 Documentation Only INTERFACED REPORT Unknown, Provider Social [...] Answer Date Recorded PHQ-2 Score 0 06/05/2020 [facility] - Occupational [...] on file Legal 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 GAS DISPENSER Gender Identity Not on file Sexual Orientation [...] st Contact Info) Description 02/01/2024 3:00 PM GAS DISPENSER Office Visit [facility] 6[address] [place] [address] Manuel Ahn, [address] [place] [address] 02/02/2024 1:30 PM GAS DISPENSER Therapy Visit [facility] [address] [facility] [address] [place] [phone] Alicja Roldan, OT 909 [place] [address] 02/05/2024 8:00 PM GAS DISPENSER Therapy Visit [facility] [address] [place] [address] 103 [place] [phone] 02/13/2024 4:30 PM GAS DISPENSER Oncology [facility] 909 [place] [phone] Marian Agustin, NESSA SUSTAINABILITY SPECIALIST [address] [facility] 207 [place] [address] 03/01/2024 7:00 AM GAS DISPENSER Office Visit [facility] [address] [place] [phone] Estella Hassan, [facility] 3033 [place] [address] 03/23/2024 2:00 PM GAS DISPENSER Office Visit [facility] [address] [place] [address] Lizet Mann PA-C 717 [place] [address] 03/29/2024 3:30 PM GAS DISPENSER Office Visit [facility] 2945 [facility] 200 [place] [address] Hakeem Chacko MBBS 2945 [place] [address] 05/03/2024 3:00 PM GAS DISPENSER Office Visit [facility] [address], [place] [address] Gaurav Valenzuela, [facility] [address] [place] [address] 05/22/2024 10:30 AM CDT Office Visit [address] [phone] Estella Hassan, [facility] 3033 [place] [address] 05/22/2024 11:30 AM CDT Office Visit [facility] [address] [place] [phone] [place] [address] [place], [place] [phone] documented as of this encounter Visit Diagnoses Not on filedocumented in this encounter Additional Health Concerns Infection Onset Date Last Indicated Resolved Time Rule Out COVID-19 06/22/2021 06/22/2021 06/23/2021 8:58 PM CDT Rule Out COVID-19 01/22/2022 01/22/2022 01/24/2022 1:05 PM GAS DISPENSER Rule Out COVID-19 01/25/2022 01/25/2022 01/25/2022 5:21 AM GAS DISPENSER Influenza 01/25/2022 01/25/2022 02/01/2022 11:4 1 PM GAS DISPENSER Rule Out COVID-19 07/29/2022 07/29/2022 07/31/2022 11:17 AM CDT Rule Out COVID-19 03/23/2023 03/23/2023 03/23/2023 6:30 PM GAS DISPENSER COVID-19 03/23/2023 03/23/2023 04/13/2023 11:4 0 PM GAS DISPENSER Rule Out COVID-19 06/05/2023 06/05/2023 06/05/2023 5:53 PM CDT Rule Out COVID-19 11/06/2023 11/06/2023 11/06/2023 11:05 PM CDT Rule Out COVID-19 11/20/2023 11/20/2023 11/20/2023 6:43 PM CDT Rule Out COVID-19 12/27/2023 12/27/2023 12/29/2023 1:37 PM CDT Assessment Noted Time PHQ-9 Depression Total Score: 9 05/31/19 21 7:04 AM CDT documented as of this encounter Care Teams Central Station Operator Relationship Specialty [place] [address] [place] [address] PCP - General Family Practice 07/11/14 [place] [address] [place] [address] Assigned PCP 12/16/11 Kerry Bernal RN Personal Advocate & Liaison (PAL) 01/08/19 07/10/23 Ravi Barillas DPM [address] [address] Assigned Musculoskeletal Provider 03/23/20 10/30/21 Christy Campuzano PA-C [address] [place] [address] Referring Physician Family Medicine 04/22/20 Hans Cannon MD [address] [place] [address] Resident Pulmonary Disease 04/22/20 Mitra Kendall, [facility] Lead Automobile Repossessor Primary Care - CC 01/08/1901/12 Faith Pool, [facility] Community Health Worker 04/30/2006/05 Burt Jovel MD Internal Medicine 05/08/20 12/13/23 Estella Hassan, [facility] 30[address] [place], [place] [phone] Pharmacist Pharmacist 05/26/20 Reji Chavez MD [address] [place] [phone] Assigned Heart and Vascular Provider 05/18/20 10/30/21 Elaina Moreno MD [address] [place] [address] 429975 Assigned Surgical Provider 05/18/20 11/19/22 Elaina Moreno MD [address] [place] [address] Cardiovascular & Thoracic Surgery 08/06/20 Kelsi Hassan MD [address] [place] [address] 284 [place] [address] Assigned Pulmonology Provider 06/28/21 02/05/22 John Webb MD [address] [place] [address] Cardiovascular Disease 08/25/21 John Webb MD [address] [address] Cardiovascular Disease 08/25/21 Estella Hassan, [facility] [address] [place] [address] Assigned MTM Pharmacist 09/05/21 Nav Hughes MD [address] [place] [address] Assigned Heart and Vascular Provider 10/31/21 09/03/23 Cassandra Mendoza MD ORTHOPAEDIC SURGERY [address] [place] [address] Assigned Musculoskeletal Provider 10/31/21 08/13/22 Estella Hassan, [facility]3 [place] [address] Assigned MTM Pharmacist 12/09/21 Mitra Kendall, [facility] Lead Automobile Repossessor Primary Care - CC 01/26/2210/28 Lindsay Carey OD 3305 [facility] [place] [address] Ophthalmology 01/29/22 Ravi Brownlee MD [address] 487065 Assigned Pulmonology Provider 02/06/22 09/03/23 Arabella Fishman MA Financial Resource Worker 02/22/22 02/23/22 Richard Kam MD [address] [place] [address] Assigned Musculoskeletal Provider 08/14/22 [facility] [place] [place] [address] Pharmacist Pharmacist 11/22/22 01/09/23 [place] [address] [place] [address] [address] Assigned Neuroscience Provider 01/01/23 Rosemarie Mcdowell, RN Meat Washer Diabetes Education 03/17/23 Ravi Brownlee MD [address] [place] [address] 425175 Assigned Heart and Vascular Provider 09/04/23 01/03/24 Mitra Kendall, LAWN MOWER SHARPENER Lead Automobile Repossessor Primary Care - CC 12/12/23 Lizet Mann PAUniqueC 717 [facility] [place] [address] Assigned Cancer Care Provider 01/04/24 Ravi Brownlee MD 420 [facility] [address] [place] [address] Assigned Pulmonology Provider 01/04/24 Nav Hughes MD 6405 [facility] [place], [place] [address]745 Assigned Heart and Vascular Provider 01/04/24 Manuel Ahn OD 6341 [facility] [place] [address] Senior Environmental Practice Leader 01/05/24 Arabella Fishman MA Financial Resource Worker 01/06/24 Thalia Charles [facility] Pharmacist Pharmacy 01/26/24 documented as of this encounter
--- OUTSIDE RECORDS SUMMARY | 2024-01-31 20:13 | XMS_ITS | Encounter Summary ---
Author Organization [place] Address [address] [place] [address] Care Team Providers Care Certified Bench Jeweler Technician Name Role Phone Va Glez MD Primary Care Provider Va Glez MD Unavailable Kerry Bernal RN Unavailable [phone] Ravi Barillas DPM Unavailable [phone] Christy Campuzano PA-C Unavailable [phone] Hans Cannon MD Unavailable Mitra Kendall FORMING MACHINE ADJUSTER Unavailable [phone] Burt Jovel MD Unavailable Estella Hassan [facility] Unavailable Reji Chavez MD Unavailable Josh Cordero MD, Madhuri Unavailable [phone] Josh Cordero MD, Madhuri Unavailable [phone] Kelsi Hassan MD Unavailable [phone] John Webb MD Unavailable John Webb MD Unavailable Estella Hassan [facility] Unavailable Nav Hughes MD Unavailable [phone] Cassandra Mendoza MD Unavailable Estella Hassan H Unavailable [phone] Mitra Kendall FORMING MACHINE ADJUSTER Unavailable Aurelio Lindsay Bartone OD Unavailable Ravi Brownlee MD Unavailable Arabella Fishman MA Unavailable [phone] Richard Kam MD Unavailable Marisol Patel [facility] Unavailable Gaby Vila DO Unavailable Rosemarie Mcdowell RN Unavailable Ravi Brownlee MD Unavailable [phone] Mitra Kendall FORMING MACHINE ADJUSTER Unavailable Lizet Mann PA-C Unavailable Ravi Brownlee MD Unavailable [phone] Nav Hughes MD Unavailable [phone] Manuel Ahn OD Unavailable Arabella Fishman MA Unavailable [phone] Thalia Charles [facility] Unavailable Unavailable Encounter Details Date Type Department Care Team (Late st Contact Info) Description 06/11/2020 MyC Medical Advice [facility] [address] [address] Ravi Barillas DPM [address] [facility] [address] [place] [address] Social History Tobacco Use Types [...] Answer Date Recorded PHQ-2 Score 0 06/05/2020 [facility] of Occupat ional Health [...] on file Legal 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 LONG CHAIN QUILLER TENDER Gender Identity Not on file Sexual [...] st Contact Info) Description 02/01/2024 3:00 PM LONG CHAIN QUILLER TENDER Office Visit [facility] [address] [place] [phone] Manuel Ahn, [address] [place] [address] 02/02/2024 1:30 PM LONG CHAIN QUILLER TENDER Therapy Visit [facility] [address] [facility] [address] [place] [phone] Alicja Roldan, OT 909 [place] [address] 02/05/2024 8:00 PM LONG CHAIN QUILLER TENDER Therapy Visit [facility] [address] [place] [phone] 02/13/2024 4:30 PM LONG CHAIN QUILLER TENDER Oncology Visit [facility] 909 [place] [phone] Marian Agustin APRN COPY TECHNICIAN [address] [facility] 207 [place], [place] 747[address] 03/01/2024 7:00 AM LONG CHAIN QUILLER TENDER Office Visit [facility] [address] [place] [phone] Estella Hassan, [facility] 0564 [place] [address] 03/23/2024 2:00 PM LONG CHAIN QUILLER TENDER Office Visit [facility] [address] [place] [address] Lizet Mann PA-C 717 [place] [address] 03/29/2024 3:30 PM LONG CHAIN QUILLER TENDER Office Visit [facility] 2945 [facility] 200 [place] [phone] Hakeem Chacko MBBS 2945 [place] [address] 05/03/2024 3:00 PM LONG CHAIN QUILLER TENDER Office Visit [facility] [address] [place] [phone] Gaurav Valenzuela, MEMS DEVICE SCIENTIST [address] [address] 05/22/2024 10:30 AM CDT Office Visit [address] [phone] Estella Hassan, [facility] 3033 [place] [address] 05/22/2024 11:30 AM CDT Office Visit [address] [address] Va Glez MD [address] [place] [address] [phone] documented as of this encounter Visit Diagnoses Not on filedocumented in this encounter Additional Health Concerns Infection Onset Date Last Indicated Resolved Time Rule Out COVID-19 06/22/2021 06/22/2021 06/23/2021 8:58 PM CDT Rule Out COVID-19 01/22/2022 01/22/2022 01/24/2022 1:05 PM LONG CHAIN QUILLER TENDER Rule Out COVID-19 01/25/2022 01/25/2022 01/25/2022 5:21 AM LONG CHAIN QUILLER TENDER Influenza 01/25/2022 01/25/2022 02/01/2022 11:4 1 PM LONG CHAIN QUILLER TENDER Rule Out COVID-19 07/29/2022 07/29/2022 07/31/2022 11:17 AM CDT Rule Out COVID-19 03/23/2023 03/23/2023 03/23/2023 6:30 PM LONG CHAIN QUILLER TENDER COVID-19 03/23/2023 03/23/2023 04/13/2023 11:4 0 PM LONG CHAIN QUILLER TENDER Rule Out COVID-19 06/05/2023 06/05/2023 06/05/2023 5:53 PM CDT Rule Out COVID-19 11/06/2023 11/06/2023 11/06/2023 11:05 PM CDT Rule Out COVID-19 11/20/2023 11/20/2023 11/20/2023 6:43 PM CDT Rule Out COVID-19 12/27/2023 12/27/2023 12/29/2023 1:37 PM CDT Assessment Noted Time PHQ-9 Depression Total Score: 2 06/06/19 21 12:47 PM CDT documented as of this encounter Care Teams Certified Bench Jeweler Technician Relationship Specialty [place] [address] [place] [address] PCP - General Family Practice 07/11/14 [place] [address] [place] [address] Assigned PCP 12/16/11 Kerry Bernal RN Personal Advocate & Liaison (PAL) 01/08/19 07/10/23 Ravi Barillas DPM [address] [facility] 300 [place] [address] Assigned Musculoskeletal Provider 03/23/20 10/30/21 Christy Campuzano PA-C [address] [place] [address] 057032 Referring Physician Family Medicine 04/22/20 Hans Cannon MD [address] [place] [address] 106782 Resident Pulmonary Disease 04/22/20 Mitar Kendall, [facility] Lead Master [employer] Primary Care - CC 01/08/1901/12 Burt Jovel MD Internal Medicine 05/08/20 12/13/23 Estella Hassan, [facility] 30[address] [place], [place] 449[address] Pharmacist Pharmacist 05/26/20 Reji Chavez MD [address] [place] [phone] Assigned Heart and Vascular Provider 05/18/20 10/30/21 Elaina Moreno MD [address] [place] [address] Assigned Surgical Provider 05/18/20 11/19/22 Elaina Moreno MD 909 [place] [address] Cardiovascular & Thoracic Surgery 08/06/20 Kelsi Hassan MD 420 [facility] [address] [place] [address] Assigned Pulmonology Provider 06/28/21 02/05/22 John Webb MD [address] [place] 665985 Cardiovascular Disease 08/25/21 John Webb MD [address] [place] [address] Cardiovascular Disease 08/25/21 Estella Hassan, [facility] [address] [place] [address] Assigned MTM Pharmacist 09/05/21 Nav Hughes MD [address] [place] [address] Assigned Heart and Vascular Provider 10/31/21 09/03/23 Cassandra Mendoza MD ORTHOPAEDIC SURGERY [facility] [address] Assigned Musculoskeletal Provider 10/31/21 08/13/22 Estella Hassan, [facility] [address] [place] [address] Assigned MTM Pharmacist 12/09/21 Mitra Kendall, [facility] Lead Master [employer] Primary Care - CC 01/26/2210/28 Lindsay Carey OD 3305 [facility] [place] [address] Ophthalmology 01/29/22 Ravi Brownlee MD [address] [place] [address] 276 [place] [address] Assigned Pulmonology Provider 02/06/22 09/03/23 Arabella Fishman MA Financial Resource Worker 02/22/22 02/23/22 Richard Kam MD [address] [place] [address] 354375 Assigned Musculoskeletal Provider 08/14/22 [facility] [address] [facility] [place] [phone] Pharmacist Pharmacist 11/22/22 01/09/23 [place] [address] [address] Assigned Neuroscience Provider 01/01/23 Rosemarie Mcdowell, RN Management Consulting Diabetes Education 03/17/23 Ravi Brownlee MD [address] [place] [address] 276 [place], [place] 155995 Assigned Heart and Vascular Provider 09/04/23 01/03/24 Mitra Kendall LSW Lead Master [employer] Primary Care - CC 12/12/23 Lizet Mann PA-C 717 [place] [address] Assigned Cancer Care Provider 01/04/24 Ravi Brownlee MD 420 [facility] [address] [place], [place] 723025 Assigned Pulmonology Provider 01/04/24 Nav Hughes MD 6405 [facility] [place] [id number] Assigned Heart and Vascular Provider 01/04/24 Manuel Ahn OD 6341 [facility] [place] [address] Mica Machine Operator 01/05/24 Arabella Fishman MA Financial Resource Worker 01/06/24 Thalia Charles [facility] Pharmacist Pharmacy 01/26/24 documented as of this encounter
--- OUTSIDE RECORDS SUMMARY | 2024-01-31 20:13 | XMS_ITS | Encounter Summary ---
Author Organization [facility] Address [address] [place] [address] Care Team Providers Care Applied Researcher Name Role Phone Va Glez MD Primary Care Provider [phone] Va Glez MD Unavailable Kerry Bernal RN Unavailable [phone] Ravi Barillas DPM Unavailable [phone] Christy Campuzano PA-C Unavailable Hans Cannon MD Unavailable [phone] Mitra Kendall TAIL BOARD WORKER Unavailable [phone] Burt Jovel MD Unavailable [phone] Estella Hassan [facility] Unavailable Reji Chavez MD Unavailable Josh Cordero MD, Madhuri Unavailable [phone] Josh Cordero MD, Madhuri Unavailable [phone] Kelsi Hassan MD Unavailable [phone] John Webb MD Unavailable John Webb MD Unavailable Estella Hassan [facility] Unavailable [phone] Nav Hughes MD Unavailable [phone] Cassandra Mendoza MD Unavailable Estella Hassan H Unavailable Mitra Kendall TAIL BOARD WORKER Unavailable Aurelio Lindsay Kenzie OD Unavailable WestportRavi bajwa MD Unavailable Arabella Fishman MA Unavailable [phone] Richard Kam MD Unavailable Marisol Patel H Unavailable Gaby Vila DO Unavailable Rosemarie Mcdowell RN Unavailable Ravi Brownlee MD Unavailable [phone] Mitra Kendall TAIL BOARD WORKER Unavailable [phone] Lizet Mann PA-C Unavailable Ravi Brownlee MD Unavailable Nav Hughes MD Unavailable [phone] Manuel Ahn OD Unavailable Arabella Fishman MA Unavailable [phone] Thalia Charles [facility] Unavailable Unavailable Encounter Details Date Type Department Care Team (Late st Contact Info) Description 06/13/[address] [facility] [address] [address] Nilsa Harper LICSW [address], [address] [place] [address] Social History Tobacco Use Types [...] Date Recorded PHQ-2 Score 0 06/05/2020 [facility] of Occupat ional Health - Occupational Stress [...] on file Legal 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 WORSHIP LEADER Gender Identity Not on file Sexual Orientation [...] st Contact Info) Description 02/01/2024 3:00 PM WORSHIP LEADER Office Visit [facility] 6341 [place] [phone] Manuel Ahn, [address] [place] [address] 02/02/2024 1:30 PM WORSHIP LEADER Therapy [facility] [address] [facility] [address] [place] [phone] Alicja Roldan, OT 909 [place] [address] 02/05/2024 8:00 PM WORSHIP LEADER Therapy [facility] [address] [place] [address] [address] [place] [phone] 02/13/2024 4:30 PM WORSHIP LEADER Oncology Visit [facility] 909 [place] [phone] Marian Agustin, MANAGER LIFE SCIENCES SURVEILLANCE MONITOR [address] [place] [address] [facility] 207 [place], [place] 0[address] 03/01/2024 7:00 AM WORSHIP LEADER Office Visit [facility] [address] [place] [phone] Estella Hassan, [facility] [address] [place] [address] 03/23/2024 2:00 PM WORSHIP LEADER Office Visit [facility] [address] [place] [address] Lizet Mann PA-C 717 [place] [address] 03/29/2024 3:30 PM WORSHIP LEADER Office Visit [facility] 2945 [facility] [address] [place] [phone] Hakeem Chacko MBBS 2945 [place] [address] 05/03/2024 3:00 PM WORSHIP LEADER Office Visit [facility] [address] [place] [phone] Gaurav Valenzuela, MANAGER LIFE SCIENCES [facility] [address] [place] [address] 828464 05/22/2024 10:30 AM CDT Office Visit [address] [phone] Estella Hassan, [facility] 30[address] [place] [address] 05/22/2024 11:30 AM CDT Office Visit [address] [address] [place] [address] [place], [place] [phone] documented as of this encounter Visit Diagnoses Not on filedocumented in this encounter Additional Health Concerns Infection Onset Date Last Indicated Resolved Time Rule Out COVID-19 06/22/2021 06/22/2021 06/23/2021 8:58 PM CDT Rule Out COVID-19 01/22/2022 01/22/2022 01/24/2022 1:05 PM WORSHIP LEADER Rule Out COVID-19 01/25/2022 01/25/2022 01/25/2022 5:21 AM WORSHIP LEADER Influenza 01/25/2022 01/25/2022 02/01/2022 11:4 1 PM WORSHIP LEADER Rule Out COVID-19 07/29/2022 07/29/2022 07/31/2022 11:17 AM CDT Rule Out COVID-19 03/23/2023 03/23/2023 03/23/2023 6:30 PM WORSHIP LEADER COVID-19 03/23/2023 03/23/2023 04/13/2023 11:4 0 PM WORSHIP LEADER Rule Out COVID-19 06/05/2023 06/05/2023 06/05/2023 5:53 PM CDT Rule Out COVID-19 11/06/2023 11/06/2023 11/06/2023 11:05 PM CDT Rule Out COVID-19 11/20/2023 11/20/2023 11/20/2023 6:43 PM CDT Rule Out COVID-19 12/27/2023 12/27/2023 12/29/2023 1:37 PM CDT Assessment Noted Time PHQ-9 Depression Total Score: 2 06/06/19 21 12:47 PM CDT documented as of this encounter Care Teams Applied Researcher Relationship Specialty [place] [address] [place] [address] PCP - General Family Practice 07/11/14 [place] [address] [place] [address] Assigned PCP 12/16/11 Kerry Bernal, INOCENCIO Personal Advocate & Liaison (PAL) 01/08/19 07/10/23 Ravi Barillas D[place] [address] [facility] [address] [place] [address] Assigned Musculoskeletal Provider 03/23/20 10/30/21 Christy Campuzano PA-C [address] [place] [address] [id number] Referring Physician Family Medicine 04/22/20 Hans Cannon MD [address] [place] [address] [id number] Resident Pulmonary Disease 04/22/20 Mitra Kendall, [facility] Lead Cinema Or Theatre Manager Primary Care - CC 01/08/1901/12 Burt Jovel MD Internal Medicine 05/08/20 12/13/23 Estella Hassan, [facility] [address] [place], [place] [address] Pharmacist Pharmacist 05/26/20 Reji Chavez MD [address] [place] [phone] Assigned Heart and Vascular Provider 05/18/20 10/30/21 Elaina Moreno MD [address] [place] [address] Assigned Surgical Provider 05/18/20 11/19/22 Elaina Moreno MD 909 [place] [address] Cardiovascular & Thoracic Surgery 08/06/20 Kelsi Hassan MD [address] [place] [address] [facility] [address] [place] [address] Assigned Pulmonology Provider 06/28/21 02/05/22 John Webb MD [address] [place] 4[address]95 Cardiovascular Disease 08/25/21 John Webb MD [address] [place] [address] Cardiovascular Disease 08/25/21 Estella Hassan, [facility] [address]33 [place] [address] Assigned MTM Pharmacist 09/05/21 Nav Hughes MD [address] [place] [address] Assigned Heart and Vascular Provider 10/31/21 09/03/23 Cassandra Mendoza MD ORTHOPAEDIC SURGERY [facility] [address] Assigned Musculoskeletal Provider 10/31/21 08/13/22 Estella Hassan, [facility] [address] [place] [address] Assigned MTM Pharmacist 12/09/21 Mitra Kendall, TAIL BOARD WORKER Lead Cinema Or Theatre Manager Primary Care - CC 01/26/2210/28 [place] [address] [place] [address] [place] [address] Ophthalmology 01/29/22 Ravi Brownlee MD [address] [place] [address] 276 [place] [address] Assigned Pulmonology Provider 02/06/22 09/03/23 Arabella Fishman MA Financial Resource Worker 02/22/22 02/23/22 Richard Kam MD [address] [place] [address] [id number] Assigned Musculoskeletal Provider 08/14/22 [facility] [facility] [address] [place] [phone] Pharmacist Pharmacist 11/22/22 01/09/23 [place] [address] [address] Assigned Neuroscience Provider 01/01/23 Rosemarie Mcdowell, RN Vault Clerk Diabetes Education 03/17/23 Ravi Brownlee MD [address] [place] [address] 777195 Assigned Heart and Vascular Provider 09/04/23 01/03/24 Mitra Kendall, TAIL BOARD WORKER Lead Cinema Or Theatre Manager Primary Care - CC 12/12/23 Lizet Mann PA-C [address]17 [place] [address] Assigned Cancer Care Provider 01/04/24 Ravi Brownlee MD 420 [facility] 276 [place], [place] 409[address] Assigned Pulmonology Provider 01/04/24 Nav Hughes MD 6405 [facility]340 [place] 579375 Assigned Heart and Vascular Provider 01/04/24 Manuel Ahn OD 6341 [place] [address] Cargo Operations Agent 01/05/24 Arabella Fishman MA Financial Resource Worker 01/06/24 Thalia Charles [facility] Pharmacist Pharmacy 01/26/24 documented as of this encounter
--- OUTSIDE RECORDS SUMMARY | 2024-01-31 20:13 | XMS_ITS | Encounter Summary ---
Author Organization [facility] Address [address] [place] [address] Care Team Providers Care Shearing Machine Tender Name Role Phone Va Glez MD Primary Care Provider [phone] Va Glez MD Unavailable Kerry Bernal RN Unavailable [phone] Ravi Barillas DPM Unavailable [phone] Christy Campuzano PA-C Unavailable Hans Cannon MD Unavailable [phone] Mitra Kendall COTTAGE SUPERVISOR Unavailable Burt Jovel MD Unavailable [facility] Unavailable Reji Chavez MD Unavailable Josh Cordero MD, Madhuri Unavailable [phone] Josh Cordero MD, Madhuri Unavailable [phone] Kelsi Hassan MD Unavailable [phone] John Webb MD Unavailable [phone] John Webb MD Unavailable [phone] [facility] Unavailable [phone] Nav Hughes MD Unavailable [phone] Cassandra Mendoza MD Unavailable [facility] Unavailable Mitra Kendall COTTAGE SUPERVISOR Unavailable Lindsay Carey OD Unavailable IndianapolisRavi bajwa MD Unavailable [phone] Arabella Fishman MA Unavailable [phone] Richard Kam MD Unavailable Marisol Patel [facility] Unavailable [phone] Gaby Vila DO Unavailable Rosemarie Mcdowell RN Unavailable Ravi Brownlee MD Unavailable Mitra Kendall COTTAGE SUPERVISOR Unavailable Lizet Mann PA-C Unavailable Ravi Brownlee MD Unavailable Nav Hughes MD Unavailable [phone] Manuel Ahn OD Unavailable Arabella Fishman MA Unavailable [phone] Thalia Charles [facility] Unavailable Unavailable Encounter Details Date Type Department Care Team (Late st Contact Info) Description 06/11/2020 [facility] Medical Advice [address] [address] Estella Hassan, [facility] [address] [place] [address] Social History Tobacco Use Types Packs/Day Years [...] on file Legal 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 MICROSTRATEGY BI DEVELOPER Gender Identity Not on file Sexual [...] st Contact Info) Description 02/01/2024 3:00 PM MICROSTRATEGY BI DEVELOPER Office Visit [facility] [address] [place] [phone] Manuel Ahn, [address] [place] [address] 02/02/2024 1:30 PM MICROSTRATEGY BI DEVELOPER Therapy Visit [facility] [address] [facility] [address] [place] [address] Alicja Roldan OT [address] [place] [address] 02/05/2024 8:00 PM MICROSTRATEGY BI DEVELOPER Therapy Visit [facility] [address] [place] [phone] 02/13/2024 4:30 PM MICROSTRATEGY BI DEVELOPER Oncology Visit [facility] [address] [place] [phone] Marian Agustin, NESSA CHIMNEY BUILDER [address] [facility] [address] [place], [place] [address] 03/01/2024 7:00 AM MICROSTRATEGY BI DEVELOPER Office Visit [facility] [address] [place] [phone] Estella Hassan, [facility] [address] [place] [address] 03/23/2024 2:00 PM MICROSTRATEGY BI DEVELOPER Office Visit [facility] [address] [facility] [place] [address] Lizet Mann PA-C 717 [place] [address] 03/29/2024 3:30 PM MICROSTRATEGY BI DEVELOPER Office Visit [facility] 29[address] [facility] 200 [place] [phone] Hakeem Chacko MBBS 2945 [place] [address] 05/03/2024 3:00 PM MICROSTRATEGY BI DEVELOPER Office Visit [facility] [address] [place] [address] Gaurav Valenzuela, FELT CARBONIZER [address] 0975[address] 05/22/2024 10:30 AM CDT Office Visit [address] [phone] [facility] [address] [place] [address] 05/22/2024 11:30 AM CDT Office Visit [address] [address] Va Glez MD [address] [place] [address] [phone] documented as of this encounter Visit Diagnoses Not on filedocumented in this encounter Additional Health Concerns Infection Onset Date Last Indicated Resolved Time Rule Out COVID-19 06/22/2021 06/22/2021 06/23/2021 8:58 PM CDT Rule Out COVID-19 01/22/2022 01/22/2022 01/24/2022 1:05 PM MICROSTRATEGY BI DEVELOPER Rule Out COVID-19 01/25/2022 01/25/2022 01/25/2022 5:21 AM MICROSTRATEGY BI DEVELOPER Influenza 01/25/2022 01/25/2022 02/01/2022 11:4 1 PM MICROSTRATEGY BI DEVELOPER Rule Out COVID-19 07/29/2022 07/29/2022 07/31/2022 11:17 AM CDT Rule Out COVID-19 03/23/2023 03/23/2023 03/23/2023 6:30 PM MICROSTRATEGY BI DEVELOPER COVID-19 03/23/2023 03/23/2023 04/13/2023 11:4 0 PM MICROSTRATEGY BI DEVELOPER Rule Out COVID-19 06/05/2023 06/05/2023 06/05/2023 5:53 PM CDT Rule Out COVID-19 11/06/2023 11/06/2023 11/06/2023 11:05 PM CDT Rule Out COVID-19 11/20/2023 11/20/2023 11/20/2023 6:43 PM CDT Rule Out COVID-19 12/27/2023 12/27/2023 12/29/2023 1:37 PM CDT Assessment Noted Time PHQ-9 Depression Total Score: 2 06/06/19 12:47 PM CDT documented as of this encounter Care Teams Shearing Machine Tender Relationship Specialty [place] [address] [place] [address] PCP - General Family Practice 07/11/14 [place] [address] [place] [address] Assigned PCP 12/16/11 Kerry Bernal, INOCENCIO Personal Advocate & Liaison (PAL) 01/08/19 07/10/23 Ravi Barillas DPM [address] [facility] [address] [place] [address] Assigned Musculoskeletal Provider 03/23/20 10/30/21 Christy Campuzano PA-C [address] [place] [address] [phone] Referring Physician Family Medicine 04/22/20 Hans Cannon MD [address] [place] [address] [id number] Resident Pulmonary Disease 04/22/20 Mitra Kendall, [facility] Lead Principal Statistical Scientist Primary Care - CC 01/08/1901/12 Burt Jovel MD Internal Medicine 05/08/20 12/13/23 Estella Hassan, [facility] [address] [place], [place] 508[address] Pharmacist Pharmacist 05/26/20 Reji Chavez MD [address] [place] [phone] Assigned Heart and Vascular Provider 05/18/20 10/30/21 Elaina Moreno MD [address] [place] [address] Assigned Surgical Provider 05/18/20 11/19/22 Elaina Moreno MD [address] [place] [address] Cardiovascular & Thoracic Surgery 08/06/20 Kelsi Hassan MD [address] [place] [address] 284 [place] [address] Assigned Pulmonology Provider 06/28/21 02/05/22 John Webb MD [address] [place] [address] Cardiovascular Disease 08/25/21 John Webb MD [address] [place] [address] Cardiovascular Disease 08/25/21 Estella Hassan, [facility] [address] [place] [address] Assigned MTM Pharmacist 09/05/21 Nav Hughes MD [address] [place] [address] Assigned Heart and Vascular Provider 10/31/21 09/03/23 Cassandra Mendoza MD ORTHOPAEDIC SURGERY [address] [address] Assigned Musculoskeletal Provider 10/31/21 08/13/22 Estella Hassan, [facility] [address] [place] [address] Assigned MTM Pharmacist 12/09/21 Mitra Kendall, [facility] Lead Principal Statistical Scientist Primary Care - CC 01/26/2210/28 Lindsay Carey OD [address] [place] [address] Ophthalmology 01/29/22 Ravi Brownlee MD [address] [place] [address] 276 [place], [place] 630035 Assigned Pulmonology Provider 02/06/22 09/03/23 Arabella Fishman MA Financial Resource Worker 02/22/22 02/23/22 Richard Kam MD [address] [place] [address] 886765 Assigned Musculoskeletal Provider 08/14/22 [facility] [address] [facility] [address] [place] [phone] Pharmacist Pharmacist 11/22/22 01/09/23 [place] [address] [address] Assigned Neuroscience Provider 01/01/23 Rosemarie Mcdowell, RN Signal Intelligence/Electronic Warfare Diabetes Education 03/17/23 Ravi Brownlee MD [address] [place] [address] [address] [place], [place] 466555 Assigned Heart and Vascular Provider 09/04/23 01/03/24 Mitra Kendall, COTTAGE SUPERVISOR Lead Principal Statistical Scientist Primary Care - CC 12/12/23 Lizet Mann PA-C [address] [place], [place] 400175 Assigned Cancer Care Provider 01/04/24 Ravi Brownlee MD [address] [facility] [address] [place], [place] 402335 Assigned Pulmonology Provider 01/04/24 Nav Hughes MD [address] [facility] [address] [place] 786535 Assigned Heart and Vascular Provider 01/04/24 Manuel Ahn OD [address] [facility] SHANKAR RICHARDS [id number] Counseling Program Leader 01/05/24 Arabella Fishman MA Financial Resource Worker 01/06/24 Thalia Charles Anabel Pharmacist Pharmacy 01/26/24 documented as of this encounter
--- OUTSIDE RECORDS SUMMARY | 2024-01-31 20:13 | XMS_ITS | Encounter Summary ---
Author Organization [facility] Address [address] [place] [address] Care Team Providers Care Service Line Layer Name Role Phone Va Glez MD Primary Care Provider [phone] Va Glez MD Unavailable Kerry Bernal RN Unavailable [phone] Ravi Barillas DPM Unavailable [phone] Christy Campuzano PA-C Unavailable [phone] Hans Cannon MD Unavailable Mitra Kendall SEASONAL WAREHOUSE ASSOCIATE Unavailable Burt Jovel MD Unavailable Estella Hassan [facility] Unavailable Reji Cahvez MD Unavailable [phone] Josh Cordero MD, Madhuri Unavailable [phone] Josh Cordero MD, Madhuri Unavailable [phone] Kelsi Hassan MD Unavailable [phone] John Webb MD Unavailable John Webb MD Unavailable Estella Hassan [facility] Unavailable Nav Hughes MD Unavailable [phone] Cassandra Mendoza MD Unavailable [phone] Estella Hassan [facility] Unavailable Mitra Kendall SEASONAL WAREHOUSE ASSOCIATE Unavailable Lindsay Carey OD Unavailable [phone] RiversideRavi bajwa MD Unavailable [phone] Arabella Fishman MA Unavailable [phone] Richard Kam MD Unavailable Marisol Patel [facility] Unavailable [phone] Gaby Vila DO Unavailable [phone] Rosemarie Mcdowell RN Unavailable Ravi Brownlee MD Unavailable Mitra Kendall SEASONAL WAREHOUSE ASSOCIATE Unavailable Lizet Mann PA-C Unavailable [phone] Ravi Brownlee MD Unavailable [phone] Nav Hughes MD Unavailable [phone] Manuel Ahn OD Unavailable [phone] Arabella Fishman MA Unavailable [phone] Thalia Charles [facility] Unavailable Unavailable Encounter Details Date Type Department Care Team (Late st Contact Info) Description 06/09/2020 [facility] [place] [address] [address] Estella Hassan, [facility] [address] [place] [address] Social History Tobacco Use Types Packs/Day Years [...] and Family Not on file 05/31/2019 Attends Orthodoxy Services Not on file 05/30 Active Member [...] Answer Date Recorded PHQ-2 Score 0 06/05/2020 [facility] [...] on file Legal 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 REPAIRER Gender Identity Not on file Sexual Orientation [...] st Contact Info) Description 02/01/2024 3:00 PM BICYCLE REPAIRER Office Visit [facility] [address] [place] [address] Manuel Ahn, [address] [place] [address] 02/02/2024 1:30 PM BICYCLE REPAIRER Therapy Visit [facility] [address] [facility] [employer] [address] [place] [address] Alicja Roldan OT 909 [place] [address] 02/05/2024 8:00 PM BICYCLE REPAIRER Therapy Visit [facility] [address] [place] [phone] 02/13/2024 4:30 PM BICYCLE REPAIRER Oncology Visit [facility] 9[address] [place] [phone] Marian Agustin, NESSA STORE ADMINISTRATIVE ASSISTANT [address] [facility] [address] [place], [place] 46[address] 03/01/2024 7:00 AM BICYCLE REPAIRER Office Visit [facility] [address] [place] [phone] Estella Hassan, [facility] [address] [place] [address] 03/23/2024 2:00 PM BICYCLE REPAIRER Office Visit [facility] [address] [facility] [place] [address] Lizet Mann PA-C 7[address] [place] [address] 03/29/2024 3:30 PM BICYCLE REPAIRER Office Visit [facility] 29[address] [facility] 200 [place] [address] Hakeem Chacko MBBS 2945 [place] [address] 05/03/2024 3:00 PM BICYCLE REPAIRER Office Visit [facility] [address] [place] [address] Gaurav Valenzuela, COMPUTER SYSTEMS INFORMATION DIRECTOR [address] 276574 05/22/2024 10:30 AM CDT Office Visit [address] [phone] [facility] 30[address] [place] [address] 05/22/2024 11:30 AM CDT Office Visit [address] [address] Va Glez MD [address] [place] [address] [phone] documented as of this encounter Visit Diagnoses Not on filedocumented in this encounter Additional Health Concerns Infection Onset Date Last Indicated Resolved Time Rule Out COVID-19 06/22/2021 06/22/2021 06/23/2021 8:58 PM CDT Rule Out COVID-19 01/22/2022 01/22/2022 01/24/2022 1:05 PM BICYCLE REPAIRER Rule Out COVID-19 01/25/2022 01/25/2022 01/25/2022 5:21 AM BICYCLE REPAIRER Influenza 01/25/2022 01/25/2022 02/01/2022 11:4 1 PM BICYCLE REPAIRER Rule Out COVID-19 07/29/2022 07/29/2022 07/31/2022 11:17 AM CDT Rule Out COVID-19 03/23/2023 03/23/2023 03/23/2023 6:30 PM BICYCLE REPAIRER COVID-19 03/23/2023 03/23/2023 04/13/2023 11:4 0 PM BICYCLE REPAIRER Rule Out COVID-19 06/05/2023 06/05/2023 06/05/2023 5:53 PM CDT Rule Out COVID-19 11/06/2023 11/06/2023 11/06/2023 11:05 PM CDT Rule Out COVID-19 11/20/2023 11/20/2023 11/20/2023 6:43 PM CDT Rule Out COVID-19 12/27/2023 12/27/2023 12/29/2023 1:37 PM CDT Assessment Noted Time PHQ-9 Depression Total Score: 2 06/06/19 12:47 PM CDT documented as of this encounter Care Teams Service Line Layer Relationship Specialty [place] [address] [place] [address] PCP - General Family Practice 07/11/14 [place] [address] [place] [address] Assigned PCP 12/16/11 Kerry Bernal, INOCENCIO Personal Advocate & Liaison (PAL) 01/08/19 07/10/23 Ravi Barillas DPM [address] [facility] [address] [place] [address] Assigned Musculoskeletal Provider 03/23/20 10/30/21 Christy Campuzano PA-C [address] [place] [address] [phone] Referring Physician Family Medicine 04/22/20 Hans Cannon MD [address] [place] [address] [id number] Resident Pulmonary Disease 04/22/20 Mitra Kendall, [facility] Lead Supervisor Pumping Station Primary Care - CC 01/08/1901/12 Burt Jovel MD Internal Medicine 05/08/20 12/13/23 Estella Hassan, [facility] [address] [place], [place] [address] Pharmacist Pharmacist 05/26/20 Reji Chavez MD [address] [place] [address] Assigned Heart and Vascular Provider 05/18/20 10/30/21 Elaina Moreno MD [address] [place] [address] Assigned Surgical Provider 05/18/20 11/19/22 Elaina Moreno MD 909 [place] [address] Cardiovascular & Thoracic Surgery 08/06/20 Kelsi Hassan MD [address] [place] [address] 284 [place] [address] Assigned Pulmonology Provider 06/28/21 02/05/22 Jhon Webb MD [address] [place] [address] Cardiovascular Disease 08/25/21 John Webb MD [address] [place] [address] Cardiovascular Disease 08/25/21 Estella Hassan, [facility] [address] [place] [address] Assigned MTM Pharmacist 09/05/21 Nav Hughes MD [address] [place] [address] Assigned Heart and Vascular Provider 10/31/21 09/03/23 Cassandra Mendoza MD ORTHOPAEDIC SURGERY [address] [address] Assigned Musculoskeletal Provider 10/31/21 08/13/22 Estella Hassan, [facility] [address] [place] [address] Assigned MTM Pharmacist 12/09/21 Mitra Kendall, [facility] Lead Supervisor Pumping Station Primary Care - CC 01/26/2210/28 Lindsay Carye OD [address] [facility] [place] [address] Ophthalmology 01/29/22 Ravi Brownlee MD [address] [place] [address] 276 [place], [place] 301[address] Assigned Pulmonology Provider 02/06/22 09/03/23 Arabella Fishman MA Financial Resource Worker 02/22/22 02/23/22 Richard Kam MD [address] [place] [address] 527395 Assigned Musculoskeletal Provider 08/14/22 [facility] [address] [facility] [address] [place] [phone] Pharmacist Pharmacist 11/22/22 01/09/23 [place] [address] [address] Assigned Neuroscience Provider 01/01/23 Rosemarie Mcdowell, RN Mobile Development Manager Diabetes Education 03/17/23 Ravi Brownlee MD [address] [place] [address] 276 [place], [place] 8[address] Assigned Heart and Vascular Provider 09/04/23 01/03/24 Mitra Kendall, SEASONAL WAREHOUSE ASSOCIATE Lead Supervisor [place] Primary Care - CC 12/12/23 Lizet Mann PA-C [address] [place], [place] 253675 Assigned Cancer Care Provider 01/04/24 Ravi Brownlee MD [address] [facility] [address] [place], [place] [address] Assigned Pulmonology Provider 01/04/24 Nav Hughes MD [address] [facility] [address] [place] 60[address]95 Assigned Heart and Vascular Provider 01/04/24 Manuel Ahn OD 6341 [facility] SHANKAR RICHARDS [id number] Superintendent Construction 01/05/24 Arabella Fishman MA Financial Resource Worker 01/06/24 Thalia Charles Anabel Pharmacist Pharmacy 01/26/24 documented as of this encounter
--- OUTSIDE RECORDS SUMMARY | 2024-01-31 20:13 | XMS_ITS | Encounter Summary ---
Author Organization [facility] Address [address] [place] [address] Care Team Providers Care Grief Counselor Name Role Phone Va Glez MD Primary Care Provider Va Glez MD Unavailable Kerry Bernal RN Unavailable [phone] Ravi Barillas DPM Unavailable [phone] Christy Campuzano PA-C Unavailable Hans Cannon MD Unavailable Mitra Kendall CLICKER OPERATOR Unavailable Burt Jovel MD Unavailable Estella Hassan [facility] Unavailable Reji Chavez MD Unavailable Josh Cordero MD, Madhuri Unavailable [phone] Josh Cordero MD, Madhuri Unavailable [phone] Kelsi Hassan MD Unavailable [phone] John Webb MD Unavailable John Webb MD Unavailable Estella Hassan [facility] Unavailable [phone] Nav Hughes MD Unavailable [phone] Cassandra Mendoza MD Unavailable Estella Hassan H Unavailable Mitra Kendall CLICKER OPERATOR Unavailable Aurelio Lindsay Kenzie OD Unavailable HallwoodRavi bajwa MD Unavailable Arabella Fishman MA Unavailable [phone] Richard Kam MD Unavailable Marisol Patel H Unavailable Gaby Vila DO Unavailable Rosemarie Mcdowell RN Unavailable Ravi Brownlee MD Unavailable Mitra Kendall CLICKER OPERATOR Unavailable Lizet Mann PA-C Unavailable Ravi Brownlee MD Unavailable Nav Hughes MD Unavailable [phone] Manuel Ahn OD Unavailable Arabella Fishman MA Unavailable [phone] Thalia Charles [facility] Unavailable Unavailable Encounter Details Date Type Department Care Team (Late st Contact Info) Description 06/13/2020 MyC Medical Advice [facility] [address] [address] Nilsa Harper LICSW [address], [address] [place] [address] Social History Tobacco Use Types [...] Answer Date Recorded PHQ-2 Score 0 06/05/2020 [facility] of Occupat ional Health - Occupational Stress [...] on file Legal 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 Gender Identity Not on file Sexual [...] st Contact Info) Description 02/01/2024 3:00 PM BOTTLE BOOTH ATTENDANT Office Visit [facility] [address] [place] [phone] Manuel Ahn, [address] [place] [address] 02/02/2024 1:30 PM BOTTLE BOOTH ATTENDANT Therapy Visit [facility] [address] [facility] [address] [place] [phone] Alicja Roldan, OT [address] [place] [address] 02/05/2024 8:00 PM BOTTLE BOOTH ATTENDANT Therapy Visit [facility] [place] [address] [place] [address] [address] [place] [phone] 02/13/2024 4:30 PM BOTTLE BOOTH ATTENDANT Oncology Visit [facility] 9[address] [place] [phone] Marian Agustin, RESIDENTIAL DESIGNER CARPORT ERECTOR [address] [facility] 207 [place], [place] [address] 03/01/2024 7:00 AM BOTTLE BOOTH ATTENDANT Office Visit [facility] [address] [place] [phone] Estella Hassan, [facility] [address] [place] [address] 03/23/2024 2:00 PM BOTTLE BOOTH ATTENDANT Office Visit [facility] [address] [place] [address] Lizet Mann PA-C 717 [place] [address] 03/29/2024 3:30 PM BOTTLE BOOTH ATTENDANT Office Visit [facility] [address] [facility] [address] [place] [phone] Hakeem Chacko MBBS [address] [place] [address] 05/03/2024 3:00 PM BOTTLE BOOTH ATTENDANT Office Visit [facility] [address] [place] [phone] Gaurav Valenzuela, RESIDENTIAL DESIGNER [facility] [address] [place] [address] 05/22/2024 10:30 AM CDT Office Visit [address] [phone] Estella Hassan, [facility] [address] [place] [address] 05/22/2024 11:30 AM CDT Office Visit [address] [address] [place] [address] [place], [place] [phone] documented as of this encounter Visit Diagnoses Not on filedocumented in this encounter Additional Health Concerns Infection Onset Date Last Indicated Resolved Time Rule Out COVID-19 06/22/2021 06/22/2021 06/23/2021 8:58 PM CDT Rule Out COVID-19 01/22/2022 01/22/2022 01/24/2022 1:05 PM BOTTLE BOOTH ATTENDANT Rule Out COVID-19 01/25/2022 01/25/2022 01/25/2022 5:21 AM BOTTLE BOOTH ATTENDANT Influenza 01/25/2022 01/25/2022 02/01/2022 11:4 1 PM BOTTLE BOOTH ATTENDANT Rule Out COVID-19 07/29/2022 07/29/2022 07/31/2022 11:17 AM CDT Rule Out COVID-19 03/23/2023 03/23/2023 03/23/2023 6:30 PM BOTTLE BOOTH ATTENDANT COVID-19 03/23/2023 03/23/2023 04/13/2023 11:4 0 PM BOTTLE BOOTH ATTENDANT Rule Out COVID-19 06/05/2023 06/05/2023 06/05/2023 5:53 PM CDT Rule Out COVID-19 11/06/2023 11/06/2023 11/06/2023 11:05 PM CDT Rule Out COVID-19 11/20/2023 11/20/2023 11/20/2023 6:43 PM CDT Rule Out COVID-19 12/27/2023 12/27/2023 12/29/2023 1:37 PM CDT Assessment Noted Time PHQ-9 Depression Total Score: 2 06/06/19 21 12:47 PM CDT documented as of this encounter Care Teams Grief Counselor Relationship Specialty [place] [address] [place] [address] PCP - General Family Practice 07/11/14 [place] [address] [place] [address] Assigned PCP 12/16/11 Kerry Bernal, INOCENCIO Personal Advocate & Liaison (PAL) 01/08/19 07/10/23 Ravi Barillas DPM [address] [facility] [address] [place] [address] Assigned Musculoskeletal Provider 03/23/20 10/30/21 Christy Campuzano PA-C [address] [place] [address] 210282 Referring Physician Family Medicine 04/22/20 Hans Cannon MD [address] [place] [address] 340222 Resident Pulmonary Disease 04/22/20 Mitra Kendall, [facility] Lead Electric Mule Driver Primary Care - CC 01/08/1901/12 Burt Jovel MD Internal Medicine 05/08/20 12/13/23 Estella Hassan, [facility] [address] [place], [place] [address] Pharmacist Pharmacist 05/26/20 Reji Chavez MD [address] [place] [phone] Assigned Heart and Vascular Provider 05/18/20 10/30/21 Elaina Moreno MD [address] [place] [address] Assigned Surgical Provider 05/18/20 11/19/22 Elaina Moreno MD 909 [place] [address] Cardiovascular & Thoracic Surgery 08/06/20 Kelsi Hassan MD [address] [place] [address] [facility] [address] [place] [address] Assigned Pulmonology Provider 06/28/21 02/05/22 John Webb MD [address] [place] [address] Cardiovascular Disease 08/25/21 John Webb MD [address] [place] [address] Cardiovascular Disease 08/25/21 Estella Hassan, [facility] [address] [place] [address] Assigned MTM Pharmacist 09/05/21 Nav Hughes MD [address] [place] [address] Assigned Heart and Vascular Provider 10/31/21 09/03/23 Cassandra Mendoza MD ORTHOPAEDIC SURGERY [facility] [address] [address] Assigned Musculoskeletal Provider 10/31/21 08/13/22 Estella Hassan, [facility] [address] [place] [address] Assigned MTM Pharmacist 12/09/21 Mitra Kendall, CLICKER OPERATOR Lead Electric Mule Driver Primary Care - CC 01/26/2210/28 [place] [address] [place] [address] [place] [address] Ophthalmology 01/29/22 Ravi Brownlee MD [address] [place] [address] 276 [place] [address] Assigned Pulmonology Provider 02/06/22 09/03/23 Arabella Fishman MA Financial Resource Worker 02/22/22 02/23/22 Richard Kam MD [address] [place] [address] [id number] Assigned Musculoskeletal Provider 08/14/22 [facility] [employer] [facility] [address] [place] [phone] Pharmacist Pharmacist 11/22/22 01/09/23 [place] [address] [address] Assigned Neuroscience Provider 01/01/23 Rosemarie Mcdowell, RN Nail Making Machine Tender Diabetes Education 03/17/23 Ravi Brownlee MD [address] [place] [address] 673175 Assigned Heart and Vascular Provider 09/04/23 01/03/24 Mitra Kendall, CLICKER OPERATOR Lead Electric Mule Driver Primary Care - CC 12/12/23 Lizet Mann PA-C [address] [place] [address] Assigned Cancer Care Provider 01/04/24 Ravi Brownlee MD [address] [facility] [address] [facility] 276 [place], [place] [address] Assigned Pulmonology Provider 01/04/24 Nav Hughes MD [address] [facility]340 [place] 485415 Assigned Heart and Vascular Provider 01/04/24 Manuel Ahn OD [address] [facility] [address] Collector Of Aquarium Specimens 01/05/24 Arabella Fishman MA Financial Resource Worker 01/06/24 Thalia Charles [facility] Pharmacist Pharmacy 01/26/24 documented as of this encounter
--- OUTSIDE RECORDS SUMMARY | 2024-01-31 20:13 | XMS_ITS | Encounter Summary ---
Author Organization [facility] Address [address] [place] [address] Care Team Providers Care Impersonator Character Name Role Phone Va Glez MD Primary Care Provider Va Glez MD Unavailable Kerry Bernal RN Unavailable [phone] Ravi Barillas DPM Unavailable [phone] Christy Campuzano PA-C Unavailable [phone] Hans Cannon MD Unavailable Mitra Kendall ELECTROMECHANISMS DESIGN DRAFTER Unavailable [phone] Burt Jovel MD Unavailable Estella Hassan [facility] Unavailable Reji Chavez MD Unavailable Josh Cordero MD, Madhuri Unavailable [phone] Josh Cordero MD, Madhuri Unavailable [phone] Kelsi Hassan MD Unavailable [phone] John Webb MD Unavailable John Webb MD Unavailable [phone] Estella Hassan [facility] Unavailable Nav Hughes MD Unavailable [phone] Cassandra Mendoza MD Unavailable Estella Hassan [facility] Unavailable Mitra Kendall ELECTROMECHANISMS DESIGN DRAFTER Unavailable Lindsay Carey OD Unavailable [place] ValleyRavi bajwa MD Unavailable Arabella Fishman MA Unavailable [phone] Richard Kam MD Unavailable Marisol Patel [facility] Unavailable Gaby Vila DO Unavailable Rosemarie Mcdwoell RN Unavailable [phone] Ravi Brownlee MD Unavailable Mitra Kendall ELECTROMECHANISMS DESIGN DRAFTER Unavailable Lizet Mann PA-C Unavailable Ravi Brownlee MD Unavailable Nav Hughes MD Unavailable [phone] Manuel Ahn OD Unavailable [phone] Arabella Fishman MA Unavailable [phone] Thalia Charles [facility] Unavailable Unavailable Encounter Details Date Type Department Care Team (Late st Contact Info) Description 06/06/2020 [facility] [address] [address] Estella Hassan, [facility] [address] [place] [address] Social History Tobacco Use Types Packs/Day Years [...] Answer Date Recorded PHQ-2 Score 0 06/05/2020 [facility] of Occupat ional Health - [...] on file Legal 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 INFLATABLE BUILDINGS LAMINATOR Gender Identity Not on file Sexual Orientation Not on file Occupation Industry Job Start Date Job End Date Not on file Not on file Not on file Not on file COVID-19 Exposure Response Date Recorded In the last month, have you been in contact with someone who was confirmed or suspected to have Coronavirus / COVID-19? No / Unsure 06/09/2020 2:31 PM CDT documented as of this encounter Plan of Treatment Upcoming Encounters Date Type Department Care Team (Late st Contact Info) Description 02/01/2024 3:00 PM INFLATABLE BUILDINGS LAMINATOR Office Visit [facility] [address] [place] [phone] Manuel Ahn, [address] [place] [address] 02/02/2024 1:30 PM INFLATABLE BUILDINGS LAMINATOR Therapy Visit [facility] [address] [facility] [address] [place] [phone] Alicja Roldan OT 909 [place] [address] 02/05/2024 8:00 PM INFLATABLE BUILDINGS LAMINATOR Therapy Visit [facility] [address] [place] [phone] 02/13/2024 4:30 PM INFLATABLE BUILDINGS LAMINATOR Oncology Visit [facility] 909 [place] [phone] Marian Agustin, NESSA JIG AND FIXTURE BUILDER APPRENTICE [address] [place] [address] [facility] 207 [place], [place] [address] 03/01/2024 7:00 AM INFLATABLE BUILDINGS LAMINATOR Office Visit [facility] [address] [place] [phone] Estella Hassan, [facility] 30[address] [place] [address] 03/23/2024 2:00 PM INFLATABLE BUILDINGS LAMINATOR Office Visit [facility] [address] [place] [address] Lizet Mann PA-C 717 [place] [address] 03/29/2024 3:30 PM INFLATABLE BUILDINGS LAMINATOR Office Visit [facility] 2945 [facility] 200 [place] [phone] Hakeem Chacko MBBS 2945 [place] [address] 05/03/2024 3:00 PM INFLATABLE BUILDINGS LAMINATOR Office Visit [facility] [address] [place] [phone] Gaurav Valenzuela, CDC ASSOCIATE [address] 44[address] 05/22/2024 10:30 AM CDT Office Visit [address] [phone] [facility] 30[address] [place] [address] 05/22/2024 11:30 AM CDT Office Visit [address] [address] Va Glez MD [address] [place] [address] [phone] documented as of this encounter Visit Diagnoses Not on filedocumented in this encounter Additional Health Concerns Infection Onset Date Last Indicated Resolved Time Rule Out COVID-19 06/22/2021 06/22/2021 06/23/2021 8:58 PM CDT Rule Out COVID-19 01/22/2022 01/22/2022 01/24/2022 1:05 PM INFLATABLE BUILDINGS LAMINATOR Rule Out COVID-19 01/25/2022 01/25/2022 01/25/2022 5:21 AM INFLATABLE BUILDINGS LAMINATOR Influenza 01/25/2022 01/25/2022 02/01/2022 11:4 1 PM INFLATABLE BUILDINGS LAMINATOR Rule Out COVID-19 07/29/2022 07/29/2022 07/31/2022 11:17 AM CDT Rule Out COVID-19 03/23/2023 03/23/2023 03/23/2023 6:30 PM INFLATABLE BUILDINGS LAMINATOR COVID-19 03/23/2023 03/23/2023 04/13/2023 11:4 0 PM INFLATABLE BUILDINGS LAMINATOR Rule Out COVID-19 06/05/2023 06/05/2023 06/05/2023 5:53 PM CDT Rule Out COVID-19 11/06/2023 11/06/2023 11/06/2023 11:05 PM CDT Rule Out COVID-19 11/20/2023 11/20/2023 11/20/2023 6:43 PM CDT Rule Out COVID-19 12/27/2023 12/27/2023 12/29/2023 1:37 PM CDT Assessment Noted Time PHQ-9 Depression Total Score: 2 06/06/19 12:47 PM CDT documented as of this encounter Care Teams Impersonator Character Relationship Specialty [place] [address] [place] [address] PCP - General Family Practice 07/11/14 [place] [address] [place] [address] Assigned PCP 12/16/11 Kerry Bernal, INOCENCIO Personal Advocate & Liaison (PAL) 01/08/19 07/10/23 Ravi Barillas DPM [address] [facility] [address] [place] [address] Assigned Musculoskeletal Provider 03/23/20 10/30/21 Christy Campuzano PA-C [address] [place] [address] [id number] Referring Physician Family Medicine 04/22/20 Hans Cannon MD [address] [place] [address] [id number] Resident Pulmonary Disease 04/22/20 Mitra Kendall, [facility] Lead Flat Clothier Primary Care - CC 01/08/1901/12 Burt Jovel MD Internal Medicine 05/08/20 12/13/23 Estella Hassan, [facility] [address] [place], [place] [address] Pharmacist Pharmacist 05/26/20 Reji Chavez MD [address] [place] [phone] Assigned Heart and Vascular Provider 05/18/20 10/30/21 Elaina Moreno MD [address] [place] [address] Assigned Surgical Provider 05/18/20 11/19/22 Elaina Moreno MD 909 [place] [address] Cardiovascular & Thoracic Surgery 08/06/20 Kelsi Hassan MD [address] [place] [address] 284 [place] [address] Assigned Pulmonology Provider 06/28/21 02/05/22 John Webb MD [address] [place] [address] Cardiovascular Disease 08/25/21 John Webb MD [address] [place] [address] Cardiovascular Disease 08/25/21 Estella Hassan, [facility] [address] [place] [address] Assigned MTM Pharmacist 09/05/21 Nav Hughes MD [address] [place] [address] Assigned Heart and Vascular Provider 10/31/21 09/03/23 Cassandra Mendoza MD ORTHOPAEDIC SURGERY [address] [address] Assigned Musculoskeletal Provider 10/31/21 08/13/22 Estella Hassan, [facility] [address] [place] [address] Assigned MTM Pharmacist 12/09/21 Mitra Kendall, [facility] Lead Flat Clothier Primary Care - CC 01/26/2210/28 Lindsay Carey OD [address] [facility] [place] [address] Ophthalmology 01/29/22 Ravi Brownlee MD [address] [place] [address] 276 [place], [place] 208645 Assigned Pulmonology Provider 02/06/22 09/03/23 Arabella Fishman MA Financial Resource Worker 02/22/22 02/23/22 Richard Kam MD [address] [place] [address] [id number] Assigned Musculoskeletal Provider 08/14/22 [facility] [address] [facility] [address] [place] [phone] Pharmacist Pharmacist 11/22/22 01/09/23 [place] [address] [address] Assigned Neuroscience Provider 01/01/23 Rosemarie Mcdowell, RN Metal Checker Diabetes Education 03/17/23 Ravi Brownlee MD [address] [place] [address] 276 [place], [place] 648495 Assigned Heart and Vascular Provider 09/04/23 01/03/24 Mitra Kendall, ELECTROMECHANISMS DESIGN DRAFTER Lead Flat Clothier Primary Care - CC 12/12/23 Lizet Mann PA-C 7[address] [place], [place] 966795 Assigned Cancer Care Provider 01/04/24 Ravi Brownlee MD [address] [facility] [address] [place], [place] [address] Assigned Pulmonology Provider 01/04/24 Nav Hughes MD 6405 [facility] [address] [place] [address]785 Assigned Heart and Vascular Provider 01/04/24 Manuel Ahn OD 6341 [facility] SHANKAR RICHARDS 131552 [employer] 01/05/24 Arabella Fishman MA Financial Resource Worker 01/06/24 Thalia Charles Anabel Pharmacist Pharmacy 01/26/24 documented as of this encounter
--- OUTSIDE RECORDS SUMMARY | 2024-01-31 20:14 | XMS_ITS | Encounter Summary ---
Author Organization [facility] Address [address] [place] [address] Care Team Providers Care Gasoline Engine Inspector Name Role Phone Va Glez MD Primary Care Provider Va Glez MD Unavailable Kerry Bernal RN Unavailable [phone] Ravi Barillas DPM Unavailable [phone] Christy CampuzanoC Unavailable [phone] Hans Cannon MD Unavailable Mitra Kendall CLIMATOLOGY TEACHER Unavailable [phone] Faith Pool CHW Unavailable [phone] Burt Jovel MD Unavailable [phone] Burt Jovel MD Unavailable [phone] Estella Hassan [facility] Unavailable [phone] Sheila Matias Unavailable Unavailable Reji Chavez MD Unavailable Josh Cordero MD, Madhuri Unavailable [phone] Josh Cordero MD, Madhuri Unavailable [phone] Kelsi Hassan MD Unavailable [phone] John Webb MD Unavailable [phone] John Webb MD Unavailable Estella Hassan [facility] Unavailable Nav Hughes MD Unavailable [phone] Cassandra Mendoza MD Unavailable [phone] Estella Hassan [facility] Unavailable Mitra Kendall CLIMATOLOGY TEACHER Unavailable Lindsay Carey OD Unavailable Ravi Brownlee MD Unavailable Arabella Fishman MA Unavailable [phone] Richard Kam MD Unavailable Marisol Patel [facility] Unavailable Gaby Vila DO Unavailable Rosemarie Mcdowell RN Unavailable [phone] Ravi Brownlee MD Unavailable Mitra Kendall CLIMATOLOGY TEACHER Unavailable Lizet Mann PA-C Unavailable Ravi Brownlee MD Unavailable [phone] Nav Hughes MD Unavailable [phone] Manuel Ahn OD Unavailable [phone] Arabella Fishman MA Unavailable [phone] Thalia Charles [facility] Unavailable Unavailable Encounter Details Date Type Department Care Team (Late st Contact Info) Description 04/30/2020 [facility] Intake [address] [place] [address] Bc Cochran Social History Tobacco Use Types [...] PHQ-2 Answer Date Recorded PHQ-2 Score 2 03/27/2020 [facility] [place] of Occupat ional Health - Occupational Stress [...] on file Legal 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 SOUND RECORDING TECHNICIAN Gender Identity Not on file Sexual Orientation Not on file Occupation Industry Job Start Date Job End Date Not on file Not on file Not on file Not on file COVID-19 Exposure Response Date Recorded In the last month, have you been in contact with someone who was confirmed or suspected to have Coronavirus / COVID-19? Unable to assess 05/02/2020 11:01 AM SOUND RECORDING TECHNICIAN documented as of this encounter Plan of Treatment Upcoming Encounters Date Type Department Care Team (Late st Contact Info) Description 02/01/2024 3:00 PM SOUND RECORDING TECHNICIAN Office Visit [facility] 6[address] [place] [phone] Manuel Ahn, [address] [place] [address] 02/02/2024 1:30 PM SOUND RECORDING TECHNICIAN Therapy Visit [facility] [address] [facility] [address] [place] [phone] Alicja Roldan, BETY [address] [place] [address] 02/05/2024 8:00 PM SOUND RECORDING TECHNICIAN Therapy Visit [facility] [address] [place] [phone] 02/13/2024 4:30 PM SOUND RECORDING TECHNICIAN Oncology Visit [facility] 9[address] [place] [phone] Marian Agustin APRN FLAKE OR SHRED ROLL OPERATOR [address] [facility] [address] [place], [place] [address] 03/01/2024 7:00 AM SOUND RECORDING TECHNICIAN Office Visit [facility] [address] [place] [phone] Estella Hassan, [facility] [address] [place] [address] 03/23/2024 2:00 PM SOUND RECORDING TECHNICIAN Office Visit [facility] [address] [place] [address] [place] [address] Lizet Mann PA-C 717 [place] [address] 03/29/2024 3:30 PM SOUND RECORDING TECHNICIAN Office Visit [facility] 2945 [facility] 200 [place] [phone] Hakeem Chacko MBBS 2945 [place] [address] 05/03/2024 3:00 PM SOUND RECORDING TECHNICIAN Office Visit [facility] [address] [place] [phone] Gaurav Valenzuela, MOTION PICTURE CAMERAMAN [address] 619164 05/22/2024 10:30 AM CDT Office Visit [address] [phone] Estella Hassan, [facility] [address] [place] [address] 05/22/2024 11:30 AM CDT Office Visit [address] [address] [place] [address] [place], [place] [phone] documented as of this encounter Visit Diagnoses Not on filedocumented in this encounter Additional Health Concerns Infection Onset Date Last Indicated Resolved Time Rule Out COVID-19 06/22/2021 06/22/2021 06/23/2021 8:58 PM CDT Rule Out COVID-19 01/22/2022 01/22/2022 01/24/2022 1:05 PM SOUND RECORDING TECHNICIAN Rule Out COVID-19 01/25/2022 01/25/2022 01/25/2022 5:21 AM SOUND RECORDING TECHNICIAN Influenza 01/25/2022 01/25/2022 02/01/2022 11:4 1 PM SOUND RECORDING TECHNICIAN Rule Out COVID-19 07/29/2022 07/29/2022 07/31/2022 11:17 AM CDT Rule Out COVID-19 03/23/2023 03/23/2023 03/23/2023 6:30 PM SOUND RECORDING TECHNICIAN COVID-19 03/23/2023 03/23/2023 04/13/2023 11:4 0 PM SOUND RECORDING TECHNICIAN Rule Out COVID-19 06/05/2023 06/05/2023 06/05/2023 5:53 PM CDT Rule Out COVID-19 11/06/2023 11/06/2023 11/06/2023 11:05 PM CDT Rule Out COVID-19 11/20/2023 11/20/2023 11/20/2023 6:43 PM CDT Rule Out COVID-19 12/27/2023 12/27/2023 12/29/2023 1:37 PM CDT Assessment Noted Time PHQ-9 Depression Total Score: 6 03/27/19 21 12:02 PM SOUND RECORDING TECHNICIAN documented as of this encounter Care Teams Gasoline Engine Inspector Relationship Specialty [place] [address] [place] [address] PCP - General Family Practice 07/11/14 [place] [address] [place] [address] Assigned PCP 12/16/11 Kerry Bernal RN Personal Advocate & Liaison (PAL) 01/08/19 07/10/23 Ravi Barillas DPM [address] [facility] [address] [place] [address] Assigned Musculoskeletal Provider 03/23/20 10/30/21 Christy Campuzano PA-C [address] [place] [address] 086042 Referring Physician Family Medicine 04/22/20 Hans Cannon MD [address] [place] [address] [id number] Resident Pulmonary Disease 04/22/20 Mitra Kendall, [facility] Lead Chemical Operations Specialist Primary Care - CC 01/08/1901/12 Faith Pool, [facility] Community Health Worker 04/30/2006/05 Burt Jovel MD Internal Medicine 05/08/20 12/13/23 Burt Jovel MD [address] [address] Assigned Heart and Vascular Provider 05/11/20 05/17/20 Estella Hassan, [facility] 3033 [place] [address] Pharmacist Pharmacist 05/26/20 Sheila Matias Financial Resource Worker Primary Care - CC 06/02/20 06/02/20 Reji Chavez MD [address] [place] [address] Assigned Heart and Vascular Provider 05/18/20 10/30/21 Elaina Moreno MD 909 [place] [address] Assigned Surgical Provider 05/18/20 11/19/22 Elaina Moreno MD [address] [place], [place] 280735 Cardiovascular & Thoracic Surgery 08/06/20 Kelsi Hassan MD 420 [facility] 284 [place], [place] 549095 Assigned Pulmonology Provider 06/28/21 02/05/22 John Webb MD [address] [place] [address] Cardiovascular Disease 08/25/21 John Webb MD [address] [place] [address] Cardiovascular Disease 08/25/21 Estella Hassan, [facility] [address] [place] [address] Assigned MTM Pharmacist 09/05/21 Nav Hughes MD [address] [place] [address] Assigned Heart and Vascular Provider 10/31/21 09/03/23 Cassandra Mendoza MD ORTHOPAEDIC SURGERY [address] [address] Assigned Musculoskeletal Provider 10/31/21 08/13/22 Estella Hassan, [facility] [address] [place] [address] Assigned MTM Pharmacist 12/09/21 Mitra Kendall, [facility] Lead Chemical Operations Specialist Primary Care - CC 01/26/2210/28 Lindsay Carey OD [address] [facility] [address] Ophthalmology 01/29/22 Ravi Brownlee MD [address] [place] [address] Assigned Pulmonology Provider 02/06/22 09/03/23 Arabella Fishman MA Financial Resource Worker 02/22/22 02/23/22 Richard Kma MD 500 [place] [address] Assigned Musculoskeletal Provider 08/14/22 Marisol Patel, [facility] [address] [phone] Pharmacist Pharmacist 11/22/22 01/09/23 [place] [address] BC PENA, [address] [address] Assigned Neuroscience Provider 01/01/23 Rosemarie Mcdowell, RN Fuel Cell Engineer Diabetes Education 03/17/23 Ravi Brownlee MD [address] [place] [address] Assigned Heart and Vascular Provider 09/04/23 01/03/24 Mitra Kendall, [facility] Lead Chemical Operations Specialist Primary Care - CC 12/12/23 Lizet Mann PA-C 717 [place] [address] Assigned Cancer Care Provider 01/04/24 Ravi Brownlee MD [address] [place] [address] Assigned Pulmonology Provider 01/04/24 Nav Hughes MD [address] [place] [address] [place] 176245 Assigned Heart and Vascular Provider 01/04/24 Manuel Ahn OD 6341 [facility] [place] [address] Dispensary Clerk 01/05/24 Arabella Fishman MA Financial Resource Worker 01/06/24 Thalia Charles [facility] Pharmacist Pharmacy 01/26/24 documented as of this encounter
--- OUTSIDE RECORDS SUMMARY | 2024-01-31 20:14 | XMS_ITS | Encounter Summary ---
Author Organization [facility] Address [address] [place] [address] Care Team Providers Care Control Equipment Electrician Name Role Phone Va Glez MD Primary Care Provider [phone] Va Glez MD Unavailable Kerry Bernal RN Unavailable [phone] Ravi Barillas DPM Unavailable [phone] Christy CampuzanoC Unavailable [phone] Hans Cannon MD Unavailable [phone] Mitra Kendall ROCK SPLITTER Unavailable [phone] Faith Pool CHW Unavailable [phone] Burt Jovel MD Unavailable [phone] Burt Jovel MD Unavailable [phone] Estella Hassan [facility] Unavailable [phone] Sheila Matias Unavailable Unavailable Reji Chavez MD Unavailable [phone] Josh Cordero MD, Madhuri Unavailable [phone] Josh Cordero MD, Madhuri Unavailable [phone] Kelis Hassan MD Unavailable [phone] John Webb MD Unavailable [phone] John Webb MD Unavailable [phone] Estella Hassan [facility] Unavailable Nav Hughes MD Unavailable [phone] Cassandra Mendoza MD Unavailable Estella Hassan [facility] Unavailable [phone] Mitra Kendall ROCK SPLITTER Unavailable Lindsay Carey OD Unavailable Ravi Brownlee MD Unavailable Arabella Fishman MA Unavailable [phone] Richard Kam MD Unavailable Marisol Patel H Unavailable [phone] Gaby Vila DO Unavailable Rosemarie Mcdowell RN Unavailable Ravi Brownlee MD Unavailable Mitra Kendall ROCK SPLITTER Unavailable Lizet Mann PA-C Unavailable Ravi Brownlee MD Unavailable Nav Hughes MD Unavailable [phone] Manuel Ahn OD Unavailable [phone] Arabella Fishman MA Unavailable [phone] Thalia Charles [facility] Unavailable Unavailable Reason for Visit * Reason Comments Medication Refill Encounter Details Date Type Department Care Team (Late st Contact Info) Description 10/18/2019 [facility] [address] [address] [place] [id number] [place] [address] [id number] Medication Refill Social History Tobacco Use Types [...] and Family Not on file 05/31/2019 Attends [employer] Services Not on file 05/30 Active Member [...] PHQ-2 Answer Date Recorded PHQ-2 Score 0 09/13/2019 [facility] Occupat ional Health [...] on file Legal 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 TOBACCO HANGER Gender Identity Not on file Sexual Orientation Not on file Occupation Industry Job Start Date Job End Date Not on file Not on file Not on file Not on file COVID-19 Exposure Response Date Recorded In the last month, have you been in contact with someone who was confirmed or suspected to have Coronavirus / COVID-19? No / Unsure 10/03/2019 3:56 PM CDT documented as of this encounter Miscellaneous Notes * Telephone Encounter - Clara Mcmillan RN - 10/18/2019 10:17 AM CDT Routing refill request to provider for review/approval because: Labs out of range: ACT Clara Mcmillan RN, BSN documented in this encounter Plan of Treatment Upcoming Encounters Date Type Department Care Team (Late st Contact Info) Description 02/01/2024 3:00 PM TOBACCO HANGER Office Visit [facility] 6[address] [place] [phone] Manuel Ahn, [address] [place] [address] 02/02/2024 1:30 PM TOBACCO HANGER Therapy Visit [facility] [address] [facility] [address] [place] [address] Alicja Roldan OT 909 [place] [address] 02/05/2024 8:00 PM TOBACCO HANGER Therapy Visit [facility] [place] [address] [facility] [address] [place] [address] 02/13/2024 4:30 PM TOBACCO HANGER Oncology Visit [facility] 909 [place] [phone] Marian Agustin, APPLICATION SUPPORT DEVELOPER [facility] 420 [facility] 207 [place] [address] 03/01/2024 7:00 AM TOBACCO HANGER Office Visit [address] [phone] Estella Hassan, [facility] 3032 [place] [address] 03/23/2024 2:00 PM TOBACCO HANGER Office Visit [address] [phone] Lizet Mann PA-C 717 [place] [address] 03/29/2024 3:30 PM TOBACCO HANGER Office Visit [facility] 2945 [facility] 200 [place] [phone] Hakeem Chacko MBBS 2945 [place] [address] 05/03/2024 3:00 PM TOBACCO HANGER Office Visit [facility] [address] [phone] Gaurav Valenzuela, APPLICATION SUPPORT DEVELOPER [facility] [address] [place] [address] 05/22/2024 10:30 AM CDT Office Visit [address] [phone] [facility] 3030 [place] [address] 05/22/2024 11:30 AM CDT Office Visit [facility] [address] [place] [phone] [place] [address] [place], [place] [phone] documented as of this encounter Visit Diagnoses Diagnosis Moderate persistent asthma without complication Unspecified asthma documented in this encounter Additional Health Concerns Infection Onset Date Last Indicated Resolved Time Rule Out COVID-19 04/07/2020 04/07/2020 04/08/2020 7:51 PM TOBACCO HANGER Rule Out COVID-19 04/21/2020 04/21/2020 04/22/2020 5:44 PM TOBACCO HANGER Rule Out COVID-19 06/22/2021 06/22/2021 06/23/2021 8:58 PM CDT Rule Out COVID-19 01/22/2022 01/22/2022 01/24/2022 1:05 PM TOBACCO HANGER Rule Out COVID-19 01/25/2022 01/25/2022 01/25/2022 5:21 AM TOBACCO HANGER Influenza 01/25/2022 01/25/2022 02/01/2022 11:4 1 PM TOBACCO HANGER Rule Out COVID-19 07/29/2022 07/29/2022 07/31/2022 11:17 AM CDT Rule Out COVID-19 03/23/2023 03/23/2023 03/23/2023 6:30 PM TOBACCO HANGER COVID-19 03/23/2023 03/23/2023 04/13/2023 11:4 0 PM TOBACCO HANGER Rule Out COVID-19 06/05/2023 06/05/2023 06/05/2023 5:53 PM CDT Rule Out COVID-19 11/06/2023 11/06/2023 11/06/2023 11:05 PM CDT Rule Out COVID-19 11/20/2023 11/20/2023 11/20/2023 6:43 PM CDT Rule Out COVID-19 12/27/2023 12/27/2023 12/29/2023 1:37 PM CDT Assessment Noted Time PHQ-9 Depression Total Score: 4 09/14/19 20 7:06 AM CDT documented as of this encounter Care Teams Control Equipment Electrician Relationship Specialty [place] [address] [place] [address] PCP - General Family Practice 07/11/14 [place] [address] [place] [address] Assigned PCP 12/16/11 Kerry Bernal, INOCENCIO Personal Advocate & Liaison (PAL) 01/08/19 07/10/23 Ravi Barillas DPM [address] [address] Assigned Musculoskeletal Provider 03/23/20 10/30/21 Christy Campuzano PA-C [address] [place] [address] 246832 Referring Physician Family Medicine 04/22/20 Hans Cannon MD [address] [place] [address] Resident Pulmonary Disease 04/22/20 Mitra Kendall, ROCK SPLITTER Lead Construction Supervisor/Carpenter Primary Care - CC 01/08/1901/12 Faith Pool, W Community Health Worker 04/30/2006/05 Burt Jovel MD Internal Medicine 05/08/20 12/13/23 Burt Jovel MD 2945 [facility] [address] [place] [address] Assigned Heart and Vascular Provider 05/11/20 05/17/20 [facility] [address] [place] [address] Pharmacist Pharmacist 05/26/20 Sheila Matias Financial Resource Worker Primary Care - CC 06/02/20 06/02/20 Reji Chavez MD [address] [place] [phone] Assigned Heart and Vascular Provider 05/18/20 10/30/21 Elaina Moreno MD [address] [place] [address] 803485 Assigned Surgical Provider 05/18/20 11/19/22 Elaina Moreno MD [address] [place] [address] Cardiovascular & Thoracic Surgery 08/06/20 Kelsi Hassan MD [address] [place] [address] 284 [place], [place] 097465 Assigned Pulmonology Provider 06/28/21 02/05/22 John Webb MD [address] [id number] Cardiovascular Disease 08/25/21 John Webb MD [address] [place] [address] Cardiovascular Disease 08/25/21 Estella Hassan, [facility] 3033 [place] [address] Assigned MTM Pharmacist 09/05/21 Nav Hughes MD [address] [place] [address] Assigned Heart and Vascular Provider 10/31/21 09/03/23 Cassandra Mendoza MD ORTHOPAEDIC SURGERY [address] [place] [address] Assigned Musculoskeletal Provider 10/31/21 08/13/22 Estella Hassan, [facility] [address] [place] [address] Assigned MTM Pharmacist 12/09/21 Mitra Kendall, [facility] Lead Construction Supervisor/Carpenter Primary Care - CC 01/26/2210/28 Lindsay Carey OD [address] [place] [address] [place] [address] Ophthalmology 01/29/22 Ravi Brownlee MD [address] [place] [address] Assigned Pulmonology Provider 02/06/22 09/03/23 Arabella Fishman MA Financial Resource Worker 02/22/22 02/23/22 Richard Kam MD 500 [place] [address] Assigned Musculoskeletal Provider 08/14/22 Marisol Patel, [facility] [address] [facility] [address] [address] [place] [phone] Pharmacist Pharmacist 11/22/22 01/09/23 [place] [address] 822867 Assigned Neuroscience Provider 01/01/23 Rosemarie Mcdowell RN Undercollar Baster Diabetes Education 03/17/23 Ravi Brownlee MD [address] [place] [address] 826455 Assigned Heart and Vascular Provider 09/04/23 01/03/24 Mitra Kendall, [facility] Lead Construction Supervisor/Carpenter Primary Care - CC 12/12/23 Lizet Mann PA-C [address] [place] [address] Assigned Cancer Care Provider 01/04/24 Ravi Brownlee MD [address] [place] [address] Assigned Pulmonology Provider 01/04/24 Nav Hughes MD [address] [address] Assigned Heart and Vascular Provider 01/04/24 Manuel Ahn OD 6341 [facility] [address] [address] Blister Packaging Machine Operator 01/05/24 Arabella Fishman MA Financial Resource Worker 01/06/24 Thalia Charles [facility] Pharmacist Pharmacy 01/26/24 documented as of this encounter
--- OUTSIDE RECORDS SUMMARY | 2024-01-31 20:14 | XMS_ITS | Encounter Summary ---
Author Organization [place] Address [address] [place] [address] Care Team Providers Care Keller Machine Operator Name Role Phone Va Glez MD Primary Care Provider [phone] Va Glez MD Unavailable Kerry Bernal RN Unavailable [phone] Ravi Barillas DPM Unavailable [phone] Christy CampuzanoC Unavailable Hans Cannon MD Unavailable Mitra Kendall BRAKE REPAIRER Unavailable [phone] Faith Pool CHW Unavailable Burt Jovel MD Unavailable [phone] Estella Hassan [facility] Unavailable Sheila Matias Unavailable Unavailable Reji Chavez MD Unavailable Josh Cordero MD, Madhuri Unavailable [phone] Josh Cordero MD, Madhuri Unavailable [phone] Kelsi Hassan MD Unavailable [phone] John Webb MD Unavailable [phone] John Webb MD Unavailable [phone] Estella Hassan [facility] Unavailable Nav Hughes MD Unavailable [phone] Cassandra Mendoza MD Unavailable Estella Hassan [facility] Unavailable [phone] Mitra Kendall BRAKE REPAIRER Unavailable Lindsay Carey OD Unavailable Ravi Brownlee MD Unavailable Arabella Fishman MA Unavailable [phone] Richard Kam MD Unavailable Marisol Patel [facility] Unavailable Gaby Vila DO Unavailable Rosemarie Mcdowell RN Unavailable Ravi Brownlee MD Unavailable Mitra Kendall BRAKE REPAIRER Unavailable Lizet Mann PA-C Unavailable Ravi Brownlee MD Unavailable Nav Hughes MD Unavailable [phone] Manuel Ahn OD Unavailable [phone] Arabella Fishman MA Unavailable [phone] Thalia Charles [facility] Unavailable Unavailable Encounter Details Date Type Department Care Team (Late st Contact Info) Description 05/30/2020 MyC Medical Advice [facility] [id number] [place] [phone] [place] [id number] [place] [address] Social History Tobacco Use Types Packs/Day [...] and Family Not on file 05/31/2019 Attends Catholic Services Not on file 05/30 Active [...] Answer Date Recorded PHQ-2 Score 2 03/27/2020 [facility] of Occupat ional Health - Occupational Stress [...] on file Legal 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 ECONOMIC CONSULTANT Gender Identity Not on file Sexual Orientation Not on file Occupation Industry Job Start Date Job End Date Not on file Not on file Not on file Not on file COVID-19 Exposure Response Date Recorded In the last month, have you been in contact with someone who was confirmed or suspected to have Coronavirus / COVID-19? No / Unsure 05/30/2020 2:22 PM CDT documented as of this encounter Plan of Treatment Upcoming Encounters Date Type Department Care Team (Late st Contact Info) Description 02/01/2024 3:00 PM ECONOMIC CONSULTANT Office Visit [facility] [address] [place] [phone] Manuel Ahn [address] [place] [address] 02/02/2024 1:30 PM ECONOMIC CONSULTANT Therapy Visit [facility] [place] [facility] [place] [address] [facility] 300 [place] [phone] Alicja Roldan OT 909 [place] [address] 02/05/2024 8:00 PM ECONOMIC CONSULTANT Therapy Visit [facility] [place] [address] [place] [address] 103 [place] [phone] 02/13/2024 4:30 PM ECONOMIC CONSULTANT Oncology Visit [facility] 909 [place] [phone] Marian Agustin APRN [facility] [address] [facility] 207 [place] [address] 03/01/2024 7:00 AM ECONOMIC CONSULTANT Office Visit [address] [phone] Estella Hassan, [address] [address] 03/23/2024 2:00 PM ECONOMIC CONSULTANT Office Visit [facility] [address] [place] [phone] Lizet Mann PA-C [address] [place] [address] 03/29/2024 3:30 PM ECONOMIC CONSULTANT Office Visit [facility] [address] [phone] Hakeem Chacko MBBS 2945 [place] [address] 05/03/2024 3:00 PM ECONOMIC CONSULTANT Office Visit [address] [phone] Gaurav Valenzuela, BARREL ENDSHAKER ADJUSTER [address] [address] 05/22/2024 10:30 AM CDT Office Visit [address] [phone] Estella Hassan, [address] [address] 05/22/2024 11:30 AM CDT Office Visit [address] [phone] Va Glez MD [address] [place] [address] [phone] documented as of this encounter Visit Diagnoses Not on filedocumented in this encounter Additional Health Concerns Infection Onset Date Last Indicated Resolved Time Rule Out COVID-19 06/22/2021 06/22/2021 06/23/2021 8:58 PM CDT Rule Out COVID-19 01/22/2022 01/22/2022 01/24/2022 1:05 PM ECONOMIC CONSULTANT Rule Out COVID-19 01/25/2022 01/25/2022 01/25/2022 5:21 AM ECONOMIC CONSULTANT Influenza 01/25/2022 01/25/2022 02/01/2022 11:4 1 PM ECONOMIC CONSULTANT Rule Out COVID-19 07/29/2022 07/29/2022 07/31/2022 11:17 AM CDT Rule Out COVID-19 03/23/2023 03/23/2023 03/23/2023 6:30 PM ECONOMIC CONSULTANT COVID-19 03/23/2023 03/23/2023 04/13/2023 11:4 0 PM ECONOMIC CONSULTANT Rule Out COVID-19 06/05/2023 06/05/2023 06/05/2023 5:53 PM CDT Rule Out COVID-19 11/06/2023 11/06/2023 11/06/2023 11:05 PM CDT Rule Out COVID-19 11/20/2023 11/20/2023 11/20/2023 6:43 PM CDT Rule Out COVID-19 12/27/2023 12/27/2023 12/29/2023 1:37 PM CDT Assessment Noted Time PHQ-9 Depression Total Score: 9 05/31/19 21 7:04 AM CDT documented as of this encounter Care Teams Keller Machine Operator Relationship Specialty [place] [address] [place] [address] PCP - General Family Practice 07/11/14 [place] [address] [place] [address] Assigned PCP 12/16/11 Kerry Bernal, RN Personal Advocate & Liaison (PAL) 01/08/19 07/10/23 Ravi Barillas DPM [address] [facility] [address] [place] [address] Assigned Musculoskeletal Provider 03/23/20 10/30/21 Christy Campuzano PA-C [address] [place] [address] 801822 Referring Physician Family Medicine 04/22/20 Hans Cannon MD [address] [place] [address] [id number] Resident Pulmonary Disease 04/22/20 Mitra Kendall, BRAKE REPAIRER Lead Virtual Assistant For Advertisers Primary Care - CC 01/08/1901/12 Faith Pool, [facility] Community Health Worker 04/30/2006/05 Burt Jovel MD Internal Medicine 05/08/20 12/13/23 Estella Hassan, [facility] 3033 [place] [address] Pharmacist Pharmacist 05/26/20 Sheila Matias Financial Resource Worker Primary Care - CC 06/02/20 06/02/20 Reji Chavez MD [address] [place] [phone] Assigned Heart and Vascular Provider 05/18/20 10/30/21 Elaina Moreno MD [address] [place] [address] Assigned Surgical Provider 05/18/20 11/19/22 Elaina Moreno MD [address] [place] [address] Cardiovascular & Thoracic Surgery 08/06/20 Kelsi Hassan MD [address] [place] [address] 284 [place] [address] Assigned Pulmonology Provider 06/28/21 02/05/22 John Webb MD [address] [address] Cardiovascular Disease 08/25/21 John Webb MD [address] [address] Cardiovascular Disease 08/25/21 Estella Hassan, [facility] 30[address] [place] [address] Assigned MTM Pharmacist 09/05/21 Nav Hughes MD [address] [place] [address] Assigned Heart and Vascular Provider 10/31/21 09/03/23 Cassandra Mendoza MD ORTHOPAEDIC SURGERY [address] [address] Assigned Musculoskeletal Provider 10/31/21 08/13/22 Estella Hassan, [facility] [address] [facility] [place] [place] [address] Assigned MTM Pharmacist 12/09/21 Mitra Kendall, BRAKE REPAIRER Lead Virtual Assistant For Advertisers Primary Care - CC 01/26/2210/28 Lindsay Carey OD [address] [place] [address] Ophthalmology 01/29/22 Ravi Brownlee MD [address] [place] [address] 627815 Assigned Pulmonology Provider 02/06/22 09/03/23 Arabella Fishman MA Financial Resource Worker 02/22/22 02/23/22 Richard Kam MD 500 [place], [place] 359815 Assigned Musculoskeletal Provider 08/14/22 [facility] [address] [facility] [address] [place] [phone] Pharmacist Pharmacist 11/22/22 01/09/23 [place] [address] [place] PE[place], [address] [address] Assigned Neuroscience Provider 01/01/23 Rosemarie Mcdowell, RN Machine Repair Person Diabetes Education 03/17/23 Ravi Brownlee MD [facility][note 3] [address] [address] Assigned Heart and Vascular Provider 09/04/23 01/03/24 Mitra Kendall, [facility] Lead Virtual Assistant For Advertisers Primary Care - CC 12/12/23 Lizet Mann PA-C 717 [place], [place] 387935 Assigned Cancer Care Provider 01/04/24 Ravi Brownlee MD [address] [place] [address] Assigned Pulmonology Provider 01/04/24 Nav Hughes MD [address] [address] Assigned Heart and Vascular Provider 01/04/24 Manuel Ahn OD 6341 [facility] [place] [address] Urban Planning Professor 01/05/24 Arabella Fishman MA Financial Resource Worker 01/06/24 Thalia Charles [facility] Pharmacist Pharmacy 01/26/24 documented as of this encounter
--- OUTSIDE RECORDS SUMMARY | 2024-01-31 20:14 | XMS_ITS | Encounter Summary ---
Author Organization [facility] Address [address] [place] [address] Care Team Providers Care Maintenance Groundskeeper Name Role Phone Va Glez MD Primary Care Provider Va Glez MD Unavailable Kerry Bernal RN Unavailable [phone] Ravi Barillas DPM Unavailable [phone] Christy CampuzanoC Unavailable [phone] Hans Cannon MD Unavailable Mitra Kendall CONTRACT LAW SPECIALIST Unavailable Faith Pool CHW Unavailable Burt Jovel MD Unavailable [phone] Estella Hassan [facility] Unavailable Sheila Matias Unavailable Unavailable Reji Chavez MD Unavailable Josh Cordero MD, Madhuri Unavailable [phone] Josh Cordero MD, Madhuri Unavailable [phone] Kelsi Hassan MD Unavailable [phone] John Webb MD Unavailable John Webb MD Unavailable Estella Hassan [facility] Unavailable Nav Hughes MD Unavailable [phone] Cassandra Mendoza MD Unavailable Estella Hassan [facility] Unavailable [phone] Mitra Kendall CONTRACT LAW SPECIALIST Unavailable Lindsay Carey OD Unavailable Ravi Brownlee MD Unavailable [phone] Arabella Fishman MA Unavailable [phone] Richard Kam MD Unavailable Marisol Patel [facility] Unavailable Gaby Vila DO Unavailable Rosemarie Mcdowell RN Unavailable Ravi Brownlee MD Unavailable [phone] Mitra Kendall CONTRACT LAW SPECIALIST Unavailable Lizet Mann PA-C Unavailable Ravi Brownlee MD Unavailable [phone] Nav Hughes MD Unavailable [phone] Manuel Ahn OD Unavailable Arabella Fishman MA Unavailable [phone] Thalia Charles [facility] Unavailable Unavailable Encounter Details Date Type Department Care Team (Late st Contact Info) Description 06/01/2020 [facility] Medical Advice [address] [phone] Estella Hassan, [facility] 30[address] [place], [place] 9[address] Social History Tobacco Use Types Packs/Day Years [...] and Family Not on file 05/31/2019 Attends [employer] Services Not on file 05/30 Active Member [...] Date Recorded PHQ-2 Score 0 06/05/2020 [facility] of Occupat ional Health - [...] file Legal 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 LABORER ORCHARD Gender Identity Not on file Sexual Orientation [...] Contact Info) Description 02/01/2024 3:00 PM LABORER ORCHARD Office Visit [facility] [address] [place] [phone] Manuel Ahn, [address] [place] [address] 02/02/2024 1:30 PM LABORER ORCHARD Therapy Visit [facility] [place] Special[facility] [place] [address] [facility] 300 [place] [phone] Alicja Roldan, OT 909 [place] [address] 02/05/2024 8:00 PM LABORER ORCHARD Therapy Visit [facility] [place] [address] [place] [address] 103 [place] [phone] 02/13/2024 4:30 PM LABORER ORCHARD Oncology Visit [facility] 909 [place] [phone] Marian Agustin, [facility] [address] [facility] 207 [place] [address] 03/01/2024 7:00 AM LABORER ORCHARD Office Visit [address] [phone] Estella Hassan, [address] [address] 03/23/2024 2:00 PM LABORER ORCHARD Office Visit [facility] [address] [place] [address] Lizet Mann PA-C [address] [place] [address] 03/29/2024 3:30 PM LABORER ORCHARD Office Visit [facility] [address] [phone] Hakeem Chacko MBBS 2945 [place] [address] 05/03/2024 3:00 PM LABORER ORCHARD Office Visit [facility] [address] [phone] Gaurav Valenzuela, [employer] [address] [address] 05/22/2024 10:30 AM CDT Office Visit [address] [phone] Estella Hassan, [address] [address] 05/22/2024 11:30 AM CDT Office Visit [address] [phone] [place] [address] [place], [place] [phone] documented as of this encounter Visit Diagnoses Not on filedocumented in this encounter Additional Health Concerns Infection Onset Date Last Indicated Resolved Time Rule Out COVID-19 06/22/2021 06/22/2021 06/23/2021 8:58 PM CDT Rule Out COVID-19 01/22/2022 01/22/2022 01/24/2022 1:05 PM LABORER ORCHARD Rule Out COVID-19 01/25/2022 01/25/2022 01/25/2022 5:21 AM LABORER ORCHARD Influenza 01/25/2022 01/25/2022 02/01/2022 11:4 1 PM LABORER ORCHARD Rule Out COVID-19 07/29/2022 07/29/2022 07/31/2022 11:17 AM CDT Rule Out COVID-19 03/23/2023 03/23/2023 03/23/2023 6:30 PM LABORER ORCHARD COVID-19 03/23/2023 03/23/2023 04/13/2023 11:4 0 PM LABORER ORCHARD Rule Out COVID-19 06/05/2023 06/05/2023 06/05/2023 5:53 PM CDT Rule Out COVID-19 11/06/2023 11/06/2023 11/06/2023 11:05 PM CDT Rule Out COVID-19 11/20/2023 11/20/2023 11/20/2023 6:43 PM CDT Rule Out COVID-19 12/27/2023 12/27/2023 12/29/2023 1:37 PM CDT Assessment Noted Time PHQ-9 Depression Total Score: 9 05/31/19 21 7:04 AM CDT documented as of this encounter Care Teams Maintenance Groundskeeper Relationship Specialty [place] [address] [place] [address] PCP - General Family Practice 07/11/14 [place] [address] [place] [address] Assigned PCP 12/16/11 Kerry Bernal RN Personal Advocate & Liaison (PAL) 01/08/19 07/10/23 Ravi Barillas DPM [address] [facility] [address] [place] [address] Assigned Musculoskeletal Provider 03/23/20 10/30/21 Christy Campuzano PA-C [address] [place] [address] 947962 Referring Physician Family Medicine 04/22/20 Hans Cannon MD [address] [place] [address] [phone] Resident Pulmonary Disease 04/22/20 Mitra Kendall, CONTRACT LAW SPECIALIST Lead Dental Resident Primary Care - CC 01/08/1901/12 Faith Pool, [facility] Community Health Worker 04/30/2006/05 Burt Jovel MD Internal Medicine 05/08/20 12/13/23 Estella Hassan, [facility] 30[address] [place] [address] Pharmacist Pharmacist 05/26/20 Sheila Matias Financial Resource Worker Primary Care - CC 06/02/20 06/02/20 Reji Chavez MD [address] [place] [phone] Assigned Heart and Vascular Provider 05/18/20 10/30/21 Elaina Moreno MD [address] [place] [address] Assigned Surgical Provider 05/18/20 11/19/22 Elaina Moreno MD [address] [place] [address] Cardiovascular & Thoracic Surgery 08/06/20 Kelsi Hassan MD [address] [place] [address] 284 [place] [address] Assigned Pulmonology Provider 06/28/21 02/05/22 John Webb MD [address] 834705 Cardiovascular Disease 08/25/21 John Webb MD [address] [address] Cardiovascular Disease 08/25/21 Estella Hassan, [facility] 3033 [place] [address] Assigned MTM Pharmacist 09/05/21 Nav Hughes MD [address] [place] [address] Assigned Heart and Vascular Provider 10/31/21 09/03/23 Cassandra Mendoza MD ORTHOPAEDIC SURGERY [address] [address] Assigned Musculoskeletal Provider 10/31/21 08/13/22 Estella Hassan, [facility] 30[address] [facility] [place], [place] [address] Assigned MTM Pharmacist 12/09/21 Mitra Kendall, CONTRACT LAW SPECIALIST Lead Dental Resident Primary Care - CC 01/26/2210/28 Lindsay Carey OD [address] [facility] [place] [address] Ophthalmology 01/29/22 Ravi Brownlee MD [address] [place] [address] 276 [place], [place] 154445 Assigned Pulmonology Provider 02/06/22 09/03/23 Arabella Fishman MA Financial Resource Worker 02/22/22 02/23/22 Richard Kam MD 500 [place], [place] [address]765 Assigned Musculoskeletal Provider 08/14/22 [facility] 1440 [facility] SHANK[address] [place]O [phone] Pharmacist Pharmacist 11/22/22 01/09/23 [place] [address] [address] Assigned Neuroscience Provider 01/01/23 Rosemarie Mcdowell, RN Production Material Handler Diabetes Education 03/17/23 Ravi Brownlee MD [address] [address] Assigned Heart and Vascular Provider 09/04/23 01/03/24 EnochMitra oates, [facility] Lead Dental Resident Primary Care - CC 12/12/23 Lizet Mann PA-C 717 [place] [address] Assigned Cancer Care Provider 01/04/24 Ravi Brownlee MD [address] [place] [address] Assigned Pulmonology Provider 01/04/24 Nav Hughes MD [address] [address] Assigned Heart and Vascular Provider 01/04/24 Manuel Ahn OD 6341 [facility] [place] [address] Silica Filter Operator 01/05/24 Arabella Fishman MA Financial Resource Worker 01/06/24 Thalia Charles [facility] Pharmacist Pharmacy 01/26/24 documented as of this encounter
--- OUTSIDE RECORDS SUMMARY | 2024-01-31 20:14 | XMS_ITS | Encounter Summary ---
Author Organization [facility] Address [address] [place] [address] Care Team Providers Care [employer] Crew Boss Name Role Phone Va Glez MD Primary Care Provider Va Glez MD Unavailable Kerry Bernal RN Unavailable [phone] Ravi Barillas DPM Unavailable [phone] Christy CampuzanoC Unavailable [phone] Hans Cannon MD Unavailable Mitra Kendall BOWLING BALL PATCHER Unavailable [phone] Faith Pool CHW Unavailable [phone] Burt Jovel MD Unavailable [phone] Burt Jovel MD Unavailable [phone] Estella Hassan [facility] Unavailable [phone] Sheila Matias Unavailable Unavailable Reji Chavez MD Unavailable Josh Cordero MD, Madhuri Unavailable [phone] Josh Cordero MD, Madhuri Unavailable [phone] Kelsi Hassan MD Unavailable [phone] John Webb MD Unavailable [phone] John Webb MD Unavailable [phone] Estella Hassan [facility] Unavailable Nav Hughes MD Unavailable [phone] Cassandra Mendoza MD Unavailable [phone] Estella Hassan [facility] Unavailable [phone] Mitra Kendall BOWLING BALL PATCHER Unavailable Lindsay Carey OD Unavailable Ravi Brownlee MD Unavailable Arabella Fishman MA Unavailable [phone] Richard Kam MD Unavailable Marisol Patel H Unavailable Gaby Vila DO Unavailable Rosemarie Mcdowell RN Unavailable [phone] Ravi Brownlee MD Unavailable Mitra Kendall BOWLING BALL PATCHER Unavailable Lizet Mann PA-C Unavailable [phone] Ravi Brownlee MD Unavailable [phone] Nav Hughes MD Unavailable [phone] Manuel Ahn OD Unavailable Arabella Fishman MA Unavailable [phone] Thalia Charles [facility] Unavailable Unavailable Reason for Visit * Reason Comments Medication Refill Encounter Details Date Type Department Care Team (Late st Contact Info) Description [facility] [address] [address] [place] [id number] [place] [address] [id number] Medication Refill Social History Tobacco Use Types [...] PHQ-2 Answer Date Recorded PHQ-2 Score 1 02/12/2019 [facility] of Occupat ional Health - Occupational Stress [...] on file Legal 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 Va Glez MD [facility] [phone] * Telephone Encounter - Reanna Quigley RN - 07/11/2019 2:15 PM CDT Routing refill request to provider for review/approval because: Labs not current: A1C Reanna Quigley RN [facility] -- Triage Nurse documented in this encounter Plan of Treatment Upcoming Encounters Date Type Department Care Team (Late st Contact Info) Description 02/01/2024 3:00 PM GARMENT TAG STRINGER Office Visit M [address] [place] [address] Manuel Ahn, [address] [place] [address] [place] [address] 02/02/2024 1:30 PM GARMENT TAG STRINGER Therapy Visit [facility] [address] [facility] [address] [place] [phone] Alicja Roldan OT 909 [place] [address] 02/05/2024 8:00 PM GARMENT TAG STRINGER Therapy Visit [facility] [place] 6363 [facility] 103 [place] [phone] 02/13/2024 4:30 PM GARMENT TAG STRINGER Oncology Visit [facility] 909 [place] [phone] Marian Agustin, [facility] 420 [facility] 207 [place] [address] 03/01/2024 7:00 AM GARMENT TAG STRINGER Office [facility] [address] [place] [phone] [facility] 3033 [place] [address] 03/23/2024 2:00 PM GARMENT TAG STRINGER Office Visit [facility] [address] [place] [address] [place] [phone] Lizet Mann PA-C 717 [place] [address] 03/29/2024 3:30 PM GARMENT TAG STRINGER Office Visit [facility] 2945 [facility] 200 [place] [phone] Hakeem Chacko MBBS 2945 [place] [address] 05/03/2024 3:00 PM GARMENT TAG STRINGER Office Visit [place] [address] [place] [phone] Gaurav Valenzuela, MEDICAL MASSAGE THERAPIST [facility] [address] [place] [address] 05/22/2024 10:30 AM CDT Office Visit [address] [phone] Estella Hassan, [facility] 3033 [place] [address] 05/22/2024 11:30 AM CDT Office Visit [address] [phone] [place] [id number] [place] [address] [phone] documented as of this encounter Visit Diagnoses Diagnosis Pre-diabetes Other abnormal glucose documented in this encounter Additional Health Concerns Infection Onset Date Last Indicated Resolved Time Rule Out COVID-19 04/07/2020 04/07/2020 04/08/2020 7:51 PM GARMENT TAG STRINGER Rule Out COVID-19 04/21/2020 04/21/2020 04/22/2020 5:44 PM GARMENT TAG STRINGER Rule Out COVID-19 06/22/2021 06/22/2021 06/23/2021 8:58 PM CDT Rule Out COVID-19 01/22/2022 01/22/2022 01/24/2022 1:05 PM GARMENT TAG STRINGER Rule Out COVID-19 01/25/2022 01/25/2022 01/25/2022 5:21 AM GARMENT TAG STRINGER Influenza 01/25/2022 01/25/2022 02/01/2022 11:4 1 PM GARMENT TAG STRINGER Rule Out COVID-19 07/29/2022 07/29/2022 07/31/2022 11:17 AM CDT Rule Out COVID-19 03/23/2023 03/23/2023 03/23/2023 6:30 PM GARMENT TAG STRINGER COVID-19 03/23/2023 03/23/2023 04/13/2023 11:4 0 PM GARMENT TAG STRINGER Rule Out COVID-19 06/05/2023 06/05/2023 06/05/2023 5:53 PM CDT Rule Out COVID-19 11/06/2023 11/06/2023 11/06/2023 11:05 PM CDT Rule Out COVID-19 11/20/2023 11/20/2023 11/20/2023 6:43 PM CDT Rule Out COVID-19 12/27/2023 12/27/2023 12/29/2023 1:37 PM CDT Assessment Noted Time PHQ-9 Depression Total Score: 5 02/13/20 12:25 PM GARMENT TAG STRINGER documented as of this encounter Care Teams [employer] Crew Boss Relationship Specialty [place] [address] [place] [address] PCP - General Family Practice 07/11/14 [place] [address] [place] [address] Assigned PCP 12/16/11 Kerry Bernal RN Personal Advocate & Liaison (PAL) 01/08/19 07/10/23 Ravi Barillas DPM [address] [place] [address] 300 [place] [address] Assigned Musculoskeletal Provider 03/23/20 10/30/21 Christy Campuzano PA-C [address] [place] [address] Referring Physician Family Medicine 04/22/20 Hans Cannon MD [address] [place] [address], [place] [address] Resident Pulmonary Disease 04/22/20 Mitra Kendall, [facility] Lead Environmental Conflict Manager Primary Care - CC 01/08/1901/12 Faith Pool, [facility] Community Health Worker 04/30/2006/05 Burt Jovel MD Internal Medicine 05/08/20 12/13/23 Burt Jovel MD [address] [place] [address] [place] [address] Assigned Heart and Vascular Provider 05/11/20 05/17/20 Estella Hassan, [facility] [address] [place] [address] Pharmacist Pharmacist 05/26/20 Sheila Matias Financial Resource Worker Primary Care - CC 06/02/20 06/02/20 Reji Chavez MD [address] [place] [phone] Assigned Heart and Vascular Provider 05/18/20 10/30/21 Elaina Moreno MD [address] [place] [address] Assigned Surgical Provider 05/18/20 11/19/22 Elaina Moreno MD [address] [place] [address] Cardiovascular & Thoracic Surgery 08/06/20 Kelsi Hassan MD [address] [place] [address] 284 [place] [address] Assigned Pulmonology Provider 06/28/21 02/05/22 John Webb MD [address] [id number] Cardiovascular Disease 08/25/21 John Webb MD [address] 042275 Cardiovascular Disease 08/25/21 Estella Hassan, [facility] [address] [place] [address] Assigned MTM Pharmacist 09/05/21 Nav Hughes MD [address] [place] 424875 Assigned Heart and Vascular Provider 10/31/21 09/03/23 Cassandra Mendoza MD ORTHOPAEDIC SURGERY [address] [place] [address] Assigned Musculoskeletal Provider 10/31/21 08/13/22 Estella Hassan, [facility] [place] [address] Assigned MTM Pharmacist 12/09/21 Mitra Kendall, BOWLING BALL PATCHER Lead Environmental Conflict Manager Primary Care - CC 01/26/2210/28 [place] [address] [place] [address] [place] [address] Ophthalmology 01/29/22 Ravi Brownlee MD [address] [place] [address] Assigned Pulmonology Provider 02/06/22 09/03/23 Arabella Fishman MA Financial Resource Worker 02/22/22 02/23/22 Richard Kam MD [address] [place] [address] 499685 Assigned Musculoskeletal Provider 08/14/22 Marisol Patel, [facility] [address] [place] [phone] Pharmacist Pharmacist 11/22/22 01/09/23 [place] [address] [place] [address] [address] Assigned Neuroscience Provider 01/01/23 Rosemarie Mcdowell RN Residential Concierge Diabetes Education 03/17/23 Ravi Brownlee MD [address] [place] [address] Assigned Heart and Vascular Provider 09/04/23 01/03/24 Mitra Kendall, BOWLING BALL PATCHER Lead Environmental Conflict Manager Primary Care - CC 12/12/23 Lizet Mann PA-C 717 [place], [place] 412685 Assigned Cancer Care Provider 01/04/24 Ravi Brownlee MD 420 [facility] 276 [place] [address] Assigned Pulmonology Provider 01/04/24 Nav Hughes MD [address] [place] [address] Assigned Heart and Vascular Provider 01/04/24 Manuel Ahn OD 6341 [facility] [address] French Comber 01/05/24 Arabella Fishman MA Financial Resource Worker 01/06/24 Thalia Charles [facility] Pharmacist Pharmacy 01/26/24 documented as of this encounter
--- OUTSIDE RECORDS SUMMARY | 2024-01-31 20:14 | XMS_ITS | Encounter Summary ---
Author Organization [facility] Address [address] [place] [address] Care Team Providers Care Steel Rigger Name Role Phone Va Glez MD Primary Care Provider [phone] Va Glez MD Unavailable Kerry Bernal RN Unavailable [phone] Ravi Barillas DPM Unavailable [phone] Christy CampuzanoC Unavailable [phone] Hans Cannon MD Unavailable [phone] Mitra Kendall ASSEMBLER FISHING FLOATS Unavailable [phone] CHW Unavailable [phone] Burt Jovel MD Unavailable [phone] Burt Jovel MD Unavailable [phone] Estella Hassan [facility] Unavailable [phone] Sheila Matias Unavailable Unavailable Reji Chavez MD Unavailable [phone] Josh Cordero MD, Madhuri Unavailable [phone] Josh Cordero MD, Madhuri Unavailable [phone] Kelsi Hassan MD Unavailable [phone] John Webb MD Unavailable [phone] John Webb MD Unavailable Estella Hassan [facility] Unavailable [phone] Nav Hughes MD Unavailable [phone] Cassandra Mendoza MD Unavailable Estella Hassan [facility] Unavailable [phone] Mitra Kendall ASSEMBLER FISHING FLOATS Unavailable Lindsay Carey OD Unavailable Ravi Brownlee MD Unavailable Arabella Fishman MA Unavailable [phone] Richard Kam MD Unavailable Marisol Patel [facility] Unavailable Gaby Vila DO Unavailable Rosemarie Mcdowell RN Unavailable Ravi Brownlee MD Unavailable Mitra Kendall ASSEMBLER FISHING FLOATS Unavailable Lizet Mann PA-C Unavailable Ravi Brownlee MD Unavailable Nav Hughes MD Unavailable [phone] Manuel Ahn OD Unavailable [phone] Arabella Fishman MA Unavailable [phone] Thalia Charles [facility] Unavailable Unavailable Encounter Details Date Type Department Care Team (Late st Contact Info) Description 12/13/2019 [facility] [address] [address] Kerry Bernal RN Social History Tobacco Use Types Packs/Day [...] Answer Date Recorded PHQ-2 Score 0 09/13/2019 [facility] [place] of Occupat ional Health - Occupational Stress [...] on file 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 Gender Identity Not on file Sexual Orientation Not on file Occupation Industry Job Start Date Job End Date Not on file Not on file Not on file Not on file documented as of this encounter Plan of Treatment Upcoming Encounters Date Type Department Care Team (Late st Contact Info) Description 02/01/2024 3:00 PM REGIONAL FLATBED TRUCK DRIVER Office Visit [facility] [address] [place] [phone] Manuel Ahn, 6[address] [place] [address] 02/02/2024 1:30 PM REGIONAL FLATBED TRUCK DRIVER Therapy Visit [facility] [address] [facility] [address] [place] [phone] Alicja Roldan, OT 909 [place], [place] [address] 02/05/2024 8:00 PM REGIONAL FLATBED TRUCK DRIVER Therapy Visit [facility] [place] [address] [place] [address] 103 [place] [phone] 02/13/2024 4:30 PM REGIONAL FLATBED TRUCK DRIVER Oncology Visit [facility] 909 [place] [phone] Marian Agustin APRN CHARACTER ACTRESS [address] [facility] 207 [place], [place] [address] 03/01/2024 7:00 AM REGIONAL FLATBED TRUCK DRIVER Office Visit [facility] [address] [place] [phone] Estella Hassan, [facility] 3033 [place] [address] 03/23/2024 2:00 PM REGIONAL FLATBED TRUCK DRIVER Office Visit [facility] [address] [place] [address] Lizet Mann PA-C 717 [place] [address] 03/29/2024 3:30 PM REGIONAL FLATBED TRUCK DRIVER Office Visit [facility] 2945 [facility] 200 [place] [address] Hakeem Chacko MBBS 2945 [place] [address] 05/03/2024 3:00 PM REGIONAL FLATBED TRUCK DRIVER Office Visit [facility] [address] [place] [phone] Gaurav Valenzuela, LEAD TECHNICAL ARCHITECT [address] [address] 05/22/2024 10:30 AM CDT Office Visit [address] [phone] Estella Hassan, [facility] 3033 [place] [address] 05/22/2024 11:30 AM CDT Office Visit [address] [phone] Va Glez MD [address] [place] [address] [phone] documented as of this encounter Visit Diagnoses Not on filedocumented in this encounter Additional Health Concerns Infection Onset Date Last Indicated Resolved Time Rule Out COVID-19 04/07/2020 04/07/2020 04/08/2020 7:51 PM REGIONAL FLATBED TRUCK DRIVER Rule Out COVID-19 04/21/2020 04/21/2020 04/22/2020 5:44 PM REGIONAL FLATBED TRUCK DRIVER Rule Out COVID-19 06/22/2021 06/22/2021 06/23/2021 8:58 PM CDT Rule Out COVID-19 01/22/2022 01/22/2022 01/24/2022 1:05 PM REGIONAL FLATBED TRUCK DRIVER Rule Out COVID-19 01/25/2022 01/25/2022 01/25/2022 5:21 AM REGIONAL FLATBED TRUCK DRIVER Influenza 01/25/2022 01/25/2022 02/01/2022 11:4 1 PM REGIONAL FLATBED TRUCK DRIVER Rule Out COVID-19 07/29/2022 07/29/2022 07/31/2022 11:17 AM CDT Rule Out COVID-19 03/23/2023 03/23/2023 03/23/2023 6:30 PM REGIONAL FLATBED TRUCK DRIVER COVID-19 03/23/2023 03/23/2023 04/13/2023 11:4 0 PM REGIONAL FLATBED TRUCK DRIVER Rule Out COVID-19 06/05/2023 06/05/2023 06/05/2023 5:53 PM CDT Rule Out COVID-19 11/06/2023 11/06/2023 11/06/2023 11:05 PM CDT Rule Out COVID-19 11/20/2023 11/20/2023 11/20/2023 6:43 PM CDT Rule Out COVID-19 12/27/2023 12/27/2023 12/29/2023 1:37 PM CDT Assessment Noted Time PHQ-9 Depression Total Score: 4 09/14/19 7:06 AM CDT documented as of this encounter Care Teams Steel Rigger Relationship Specialty [place] [address] [place] [address] PCP - General Family Practice 07/11/14 [place] [address] [place] [address] Assigned PCP 12/16/11 Kerry Bernal, RN Personal Advocate & Liaison (PAL) 01/08/19 07/10/23 Ravi Barillas DPM [address] [facility] [address] [place] [address] Assigned Musculoskeletal Provider 03/23/20 10/30/21 Christy Campuzano PA-C [address] [place] [address] [phone] Referring Physician Family Medicine 04/22/20 Hans Cannon MD [address] [place] [address] 236312 Resident Pulmonary Disease 04/22/20 Mitra Kendall, ASSEMBLER FISHING FLOATS Lead Health And Safety Coordinator Primary Care - CC 01/08/1901/12 Faith Pool, [facility] Community Health Worker 04/30/2006/05 Burt Jovel MD Internal Medicine 05/08/20 12/13/23 Burt Jovel MD [address] 69158A [place], [place] [phone] Assigned Heart and Vascular Provider 05/11/20 05/17/20 Estella Hassan, [facility] [address] [place] [address] Pharmacist Pharmacist 05/26/20 Sheila Matias Financial Resource Worker Primary Care - CC 06/02/20 06/02/20 Reji Chavez MD [address] [place] [phone] Assigned Heart and Vascular Provider 05/18/20 10/30/21 Elaina Moreno MD [address] [place] [address] Assigned Surgical Provider 05/18/20 11/19/22 Elaina Moreno MD [address] [place] [address] Cardiovascular & Thoracic Surgery 08/06/20 Kelsi Hassan MD [address] [place] [address] 284 [place] [address] Assigned Pulmonology Provider 06/28/21 02/05/22 John Webb MD [address] [address] Cardiovascular Disease 08/25/21 John Webb MD [address] [address] Cardiovascular Disease 08/25/21 Estella Hassan, [facility] 3033 [place] [address] Assigned MTM Pharmacist 09/05/21 Nav Hughes MD [address] [place] [address] Assigned Heart and Vascular Provider 10/31/21 09/03/23 Cassandra Mendoza MD ORTHOPAEDIC SURGERY [address] [address] Assigned Musculoskeletal Provider 10/31/21 08/13/22 Estella Hassan, [facility] 3033 [place] [address] Assigned MTM Pharmacist 12/09/21 Mitra Kendall, [facility] Lead Health And Safety Coordinator Primary Care - CC 01/26/2210/28 [place] [address] [facility] [address] Ophthalmology 01/29/22 Ravi Brownlee MD [address] [place] [address] 276 [place], [place] 815625 Assigned Pulmonology Provider 02/06/22 09/03/23 Arabella Fishman MA Financial Resource Worker 02/22/22 02/23/22 Richard Kam MD [address] [place] [address] Assigned Musculoskeletal Provider 08/14/22 Marisol Patel, [facility] [address] [phone] Pharmacist Pharmacist 11/22/22 01/09/23 [place] [address] [place] [address] [address] [address] Assigned Neuroscience Provider 01/01/23 Rosemarie Mcdowell, RN Lead Athlete Diabetes Education 03/17/23 Ravi Brownlee MD [address] [place] [address] Assigned Heart and Vascular Provider 09/04/23 01/03/24 Mitra Kendall, [facility] Lead Health And Safety Coordinator Primary Care - CC 12/12/23 Lizet Mann PA-C [address] [place] [address] Assigned Cancer Care Provider 01/04/24 Ravi Brownlee MD [address] [place] [address] Assigned Pulmonology Provider 01/04/24 Nav Hughes MD 6405 [facility]34 [place] [address] Assigned Heart and Vascular Provider 01/04/24 Manuel Ahn OD 6341 [facility] [place] [address] Test Desk Trouble Locator 01/05/24 Arabella Fishman MA Financial Resource Worker 01/06/24 Thalia Charles [facility] Pharmacist Pharmacy 01/26/24 documented as of this encounter
--- OUTSIDE RECORDS SUMMARY | 2024-01-31 20:14 | XMS_ITS | Encounter Summary ---
Author Organization [facility] Address [address] [place] [address] Care Team Providers Care Store Deli Manager Name Role Phone Va Glez MD Primary Care Provider [phone] Va Glez MD Unavailable Kerry Bernal RN Unavailable [phone] Ravi Barillas DPM Unavailable [phone] Christy CampuzanoC Unavailable [phone] Hans Cannon MD Unavailable Mitra Kendall UPWARD BOUND DIRECTOR Unavailable Faith Pool CHW Unavailable [phone] Burt Jovel MD Unavailable [phone] Estella Hassan [facility] Unavailable Sheila Matias Unavailable Unavailable Reji Chavez MD Unavailable Josh Cordero MD, Madhuri Unavailable [phone] Josh Cordero MD, Madhuri Unavailable [phone] Kelsi Hassan MD Unavailable [phone] John Webb MD Unavailable [phone] John Webb MD Unavailable Estella Hassan [facility] Unavailable Nav Hughes MD Unavailable [phone] Cassandra Mendoza MD Unavailable [phone] Estella Hassan [facility] Unavailable Mitra Kendall UPWARD BOUND DIRECTOR Unavailable Lindsay Carey OD Unavailable [phone] Ravi Brownlee MD Unavailable [phone] Arabella Fishman MA Unavailable [phone] Richard Kam MD Unavailable Marisol Patel [facility] Unavailable [phone] Gaby Vila DO Unavailable Rosemarie Mcdowell RN Unavailable Ravi Brownlee MD Unavailable Mitra Kendall UPWARD BOUND DIRECTOR Unavailable Lizet Mann PA-C Unavailable Ravi Brownlee MD Unavailable Nav Hughes MD Unavailable [phone] Manuel Ahn OD Unavailable [phone] Arabella Fishman MA Unavailable [phone] Thalia Charles [facility] Unavailable Unavailable Encounter Details Date Type Department Care Team (Late st Contact Info) Description 05/27/2020 [facility] [address] [address] Estella Hassan, [facility] [address] [place], [place] [phone] Social History Tobacco Use Types Packs/Day Years [...] Answer Date Recorded PHQ-2 Score 2 03/27/2020 [facility] Occupat [...] on file Legal 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 MERCHANDISE FOR RESALE PURCHASING AGENT Gender Identity Not on file Sexual [...] st Contact Info) Description 02/01/2024 3:00 PM MERCHANDISE FOR RESALE PURCHASING AGENT Office Visit [facility] [address] [place] [phone] Manuel Ahn, [address] [place] [address] 02/02/2024 1:30 PM MERCHANDISE FOR RESALE PURCHASING AGENT Therapy Visit [facility] [place] [facility] [place] [address] [facility] 300 [place] [phone] Alicja Roldan, OT 909 [place] [address] 02/05/2024 8:00 PM MERCHANDISE FOR RESALE PURCHASING AGENT Therapy Visit [facility] [place] [address] [place] [address] 103 [place] [phone] 02/13/2024 4:30 PM MERCHANDISE FOR RESALE PURCHASING AGENT Oncology Visit [facility] 909 [place] [phone] Marian Agustin, NESSA [facility] 420 [facility] 207 [place] [address] 03/01/2024 7:00 AM MERCHANDISE FOR RESALE PURCHASING AGENT Office Visit [address] [phone] Estella Hassan, [address] [address] 03/23/2024 2:00 PM MERCHANDISE FOR RESALE PURCHASING AGENT Office Visit [facility] [address] [place] [phone] Lizet Mann PA-C [address] [place] [address] 03/29/2024 3:30 PM MERCHANDISE FOR RESALE PURCHASING AGENT Office Visit [facility] [address] [address] Hakeem Chacko MBBS 2945 [place] [address] 05/03/2024 3:00 PM MERCHANDISE FOR RESALE PURCHASING AGENT Office Visit [facility] [address] [phone] Gaurav Valenzuela, FIELD MARKETING LEAD [address] [address] 05/22/2024 10:30 AM CDT Office Visit [address] [phone] Estella Hassan, [address] [address] 05/22/2024 11:30 AM CDT Office Visit [address] [phone] [place] [address] [place], [place] [phone] documented as of this encounter Visit Diagnoses Not on filedocumented in this encounter Additional Health Concerns Infection Onset Date Last Indicated Resolved Time Rule Out COVID-19 06/22/2021 06/22/2021 06/23/2021 8:58 PM CDT Rule Out COVID-19 01/22/2022 01/22/2022 01/24/2022 1:05 PM MERCHANDISE FOR RESALE PURCHASING AGENT Rule Out COVID-19 01/25/2022 01/25/2022 01/25/2022 5:21 AM MERCHANDISE FOR RESALE PURCHASING AGENT Influenza 01/25/2022 01/25/2022 02/01/2022 11:4 1 PM MERCHANDISE FOR RESALE PURCHASING AGENT Rule Out COVID-19 07/29/2022 07/29/2022 07/31/2022 11:17 AM CDT Rule Out COVID-19 03/23/2023 03/23/2023 03/23/2023 6:30 PM MERCHANDISE FOR RESALE PURCHASING AGENT COVID-19 03/23/2023 03/23/2023 04/13/2023 11:4 0 PM MERCHANDISE FOR RESALE PURCHASING AGENT Rule Out COVID-19 06/05/2023 06/05/2023 06/05/2023 5:53 PM CDT Rule Out COVID-19 11/06/2023 11/06/2023 11/06/2023 11:05 PM CDT Rule Out COVID-19 11/20/2023 11/20/2023 11/20/2023 6:43 PM CDT Rule Out COVID-19 12/27/2023 12/27/2023 12/29/2023 1:37 PM CDT Assessment Noted Time PHQ-9 Depression Total Score: 6 03/27/19 21 12:02 PM MERCHANDISE FOR RESALE PURCHASING AGENT documented as of this encounter Care Teams Store Deli Manager Relationship Specialty [place] [address] [place], [place] [phone] PCP - General Family Practice 07/11/14 [place] [address] [place] [address] Assigned PCP 12/16/11 Kerry Bernal RN Personal Advocate & Liaison (PAL) 01/08/19 07/10/23 Ravi Barillas DPM [address] [facility] [address] [place] [address] Assigned Musculoskeletal Provider 03/23/20 10/30/21 Christy Campuzano PA-C [address] [place] [address] 947232 Referring Physician Family Medicine 04/22/20 Hans Cannon MD [address] [place] [address] 507472 Resident Pulmonary Disease 04/22/20 Mitra Kendall, UPWARD BOUND DIRECTOR Lead Senior Ui Web Developer Primary Care - CC 01/08/1901/12 Faith Pool, [facility] Community Health Worker 04/30/2006/05 Burt Jovel MD Internal Medicine 05/08/20 12/13/23 Estella Hassan, [facility] 30[address] [place] [address] Pharmacist Pharmacist 05/26/20 Sheila Matias Financial Resource Worker Primary Care - CC 06/02/20 06/02/20 Reji Chavez MD [address] [place] [address] Assigned Heart and Vascular Provider 05/18/20 10/30/21 Elaina Moreno MD [address] [place] [address] Assigned Surgical Provider 05/18/20 11/19/22 Elaina Moreno MD [address] [place] [address] Cardiovascular & Thoracic Surgery 08/06/20 Kelsi Hassan MD [address] [place] [address] 284 [place] [address] Assigned Pulmonology Provider 06/28/21 02/05/22 John Webb MD [address] [phone] Cardiovascular Disease 08/25/21 John Webb MD [address] 430615 Cardiovascular Disease 08/25/21 Estella Hassan, [facility] 3033 [place] [address] Assigned MTM Pharmacist 09/05/21 Nav Hughes MD [address] [place] [address] Assigned Heart and Vascular Provider 10/31/21 09/03/23 Cassandra Mendoza MD ORTHOPAEDIC SURGERY [address] [address] Assigned Musculoskeletal Provider 10/31/21 08/13/22 Estella Hassan, [facility] 3033 [facility] [place], [place] [address] Assigned MTM Pharmacist 12/09/21 Mitra Kendall, UPWARD BOUND DIRECTOR Lead Senior Ui Web Developer Primary Care - CC 01/26/2210/28 Lindsay Carey OD [address] [facility] [place] [address] Ophthalmology 01/29/22 Ravi Brownlee MD [address] [place] [address] 308945 Assigned Pulmonology Provider 02/06/22 09/03/23 Arabella Fishman MA Financial Resource Worker 02/22/22 02/23/22 Richard Kam MD [address] [place], [place] 3377[address] Assigned Musculoskeletal Provider 08/14/22 [facility] 1440 [facility] [place] [phone] Pharmacist Pharmacist 11/22/22 01/09/23 [place] [address] [address] Assigned Neuroscience Provider 01/01/23 Rosemarie Mcdowell, RN Grid Caster Diabetes Education 03/17/23 Ravi Brownlee MD [address] [address] Assigned Heart and Vascular Provider 09/04/23 01/03/24 Enoch Mitra Jewel, [facility] Lead Senior Ui Web Developer Primary Care - CC 12/12/23 Lizet Mann PA-C 717 [place], [place] 585285 Assigned Cancer Care Provider 01/04/24 Ravi Brownlee MD [address] [place] [address] Assigned Pulmonology Provider 01/04/24 Nav Hughes MD [address] [place] [address] Assigned Heart and Vascular Provider 01/04/24 Manuel Ahn OD 6341 [facility] [place] [address] Final Inspector Balance Wheel 01/05/24 Arabella Fishman MA Financial Resource Worker 01/06/24 Thalia Charles [facility] Pharmacist Pharmacy 01/26/24 documented as of this encounter
--- OUTSIDE RECORDS SUMMARY | 2024-01-31 20:14 | XMS_ITS | Encounter Summary ---
Author Organization [facility] Address [address] [place] [address] Care Team Providers Care Cable Tool Driller Name Role Phone Va Glez MD Primary Care Provider [phone] aV Glez MD Unavailable Va Glez MD Unavailable Kerry Bernal RN Unavailable [phone] Ravi Barillas DPM Unavailable [phone] Christy Campuzano-C Unavailable [phone] Hans Cannon MD Unavailable [phone] Mitra Kendall BANKING PIN ADJUSTER Unavailable [phone] Faith Pool CHW Unavailable [phone] Burt Jovel MD Unavailable [phone] Burt Jovel MD Unavailable [phone] Estella Hassan [facility] Unavailable [phone] Sheila Matias Unavailable Unavailable Reji Chavez MD Unavailable [phone] Josh Cordero MD, Madhuri Unavailable [phone] Josh Cordero MD, Madhuri Unavailable [phone] Kelsi Hassan MD Unavailable [phone] John Webb MD Unavailable John Webb MD Unavailable Estella Hassan [facility] Unavailable Nav Hughes MD Unavailable [phone] Cassandra Mendoza MD Unavailable [phone] Estella Hassan [facility] Unavailable Mitra Kendall BANKING PIN ADJUSTER Unavailable Lindsay Carey OD Unavailable Ravi Brownlee MD Unavailable [phone] Arabella Fishman MA Unavailable [phone] Richard Kam MD Unavailable Marisol Patel [facility] Unavailable Gaby Vila DO Unavailable Rosemarie Mcdowell RN Unavailable TorrieRavi bajwa MD Unavailable Mitra Kendall BANKING PIN ADJUSTER Unavailable [phone] Lizet Mann PA-C Unavailable [phone] Ravi Brownlee MD Unavailable Nav Hughes MD Unavailable Manuel Ahn OD Unavailable Arabella Fishman MA Unavailable [phone] Thalia Charles [facility] Unavailable Unavailable Encounter Details Date Type Department Care Team (Latest Contact Info) Description 01/17/2017 Historic Results Social History Tobacco Use Types Packs/Day Years Used Date Smoking Tobacco: Former Cigarettes Q uit: 12/03/1983 Smokeless Tobacco: Never Alcohol Use Standard Drinks/Week Comments Yes 0 (1 standard drink = 0.6 oz pur e alcohol) moderate Sex and Gender Information Value Date Recorded Sex Assigned at Not on file Legal 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 SENIOR PROCESS CONTROL TECH Gender Identity Not on file Sexual Orientation Not on file documented as of this encounter Plan of Treatment Upcoming Encounters Date Type Department Care Team (Late st Contact Info) Description 02/01/2024 3:00 PM SENIOR PROCESS CONTROL TECH Office Visit [facility] [place] 6341 [place] [address] Manuel Ahn, 6341 [place] [address] 02/02/2024 1:30 PM SENIOR PROCESS CONTROL TECH Therapy Visit [facility] [place] [address] [facility] [address] [place] [phone] Alicja Roldan, BETY 909 [place] [address] 02/05/2024 8:00 PM SENIOR PROCESS CONTROL TECH Therapy Visit [facility] [place] 6[address] [facility] 103 [place] [phone] 02/13/2024 4:30 PM SENIOR PROCESS CONTROL TECH Oncology Visit [facility] 909 [place] [phone] Marian Agustin, NESSA [facility] 420 [facility] 207 [place] [address] 03/01/2024 7:00 AM SENIOR PROCESS CONTROL TECH Office Visit [facility] [address] [place] [phone] Estella Hassan, [facility] 3033 [place] [address] 03/23/2024 2:00 PM SENIOR PROCESS CONTROL TECH Office Visit [facility] [address] [place] [address] [place] [phone] Lizet Mann PA-C 717 [place] [address] 03/29/2024 3:30 PM SENIOR PROCESS CONTROL TECH Office Visit [facility] 2945 [facility] 200 [place] [address] Hakeem Chacko MBBS 2945 [place] [address] 05/03/2024 3:00 PM SENIOR PROCESS CONTROL TECH Office Visit [address] [address] Gaurav Valenzuela, CRIMINAL INTELLIGENCE ANALYST [address] [address] 05/22/2024 10:30 AM CDT Office Visit [address] [phone] Estella Hassan, [facility] 3033 [place] [address] 05/22/2024 11:30 AM CDT Office Visit [address] [phone] [place] [address] [place] [address] [phone] documented as of this encounter Visit Diagnoses Not on filedocumented in this encounter Additional Health Concerns Infection Onset Date Last Indicated Resolved Time Rule Out COVID-19 04/07/2020 04/07/2020 04/08/2020 7:51 PM SENIOR PROCESS CONTROL TECH Rule Out COVID-19 04/21/2020 04/21/2020 04/22/2020 5:44 PM SENIOR PROCESS CONTROL TECH Rule Out COVID-19 06/22/2021 06/22/2021 06/23/2021 8:58 PM CDT Rule Out COVID-19 01/22/2022 01/22/202201/24/2022 1:05 PM SENIOR PROCESS CONTROL TECH Rule Out COVID-19 01/25/2022 01/25/2022 01/25/2022 5:21 AM SENIOR PROCESS CONTROL TECH Influenza 01/25/2022 01/25/2022 02/01/2022 11:4 1 PM SENIOR PROCESS CONTROL TECH Rule Out COVID-19 07/29/2022 07/29/2022 07/31/2022 11:17 AM CDT Rule Out COVID-19 03/23/2023 03/23/2023 03/23/2023 6:30 PM SENIOR PROCESS CONTROL TECH COVID-19 03/23/2023 03/23/2023 04/13/2023 11:4 0 PM SENIOR PROCESS CONTROL TECH Rule Out COVID-19 06/05/2023 06/05/2023 06/05/2023 5:53 PM CDT Rule Out COVID-19 11/06/2023 11/06/2023 11/06/2023 11:05 PM CDT Rule Out COVID-19 11/20/2023 11/20/2023 11/20/2023 6:43 PM CDT Rule Out COVID-19 12/27/2023 12/27/2023 12/29/2023 1:37 PM CDT Assessment Noted Time PHQ-9 Depression Total Score: 14 017 10:10 AM SENIOR PROCESS CONTROL TECH documented as of this encounter Care Teams Cable Tool Driller Relationship Specialty [place] [address] [facility] [place] [address] PCP - General Family Practice 07/11/14 [place] [address] [facility] [place] [address] PCP - Assigned PCP 12/19/11 05/16/18 [place] [address] [facility] [place] [place] [address] Assigned PCP 12/16/11 Kerry Bernal, [employer] Personal Advocate & Liaison (PAL) 01/08/19 07/10/23 Ravi Barillas DPM [address] [facility] [address] [place] [address] Assigned Musculoskeletal Provider 03/23/20 10/30/21 Christy Campuzano PA-C [address] [place] [address] 003452 Referring Physician Family Medicine 04/22/20 Hans Cannon MD [address] [place] [address] 680762 Resident Pulmonary Disease 04/22/20 Mitra Kendall, [facility] Lead Instrumentation Fitter Primary Care - CC 01/08/1901/12 Faith Pool, [facility] Community Health Worker 04/30/2006/05 Burt Jovel MD Internal Medicine 05/08/20 12/13/23 Burt Jovel MD [facility] [address] Assigned Heart and Vascular Provider 05/11/20 05/17/20 Estella Hassan, [facility] 3033 [place] [address] Pharmacist Pharmacist 05/26/20 Sheila Matias Financial Resource Worker Primary Care - CC 06/02/20 06/02/20 Reji Chavez MD [address] [place] [phone] Assigned Heart and Vascular Provider 05/18/20 10/30/21 Elaina Moreno MD 909 [place] [address] Assigned Surgical Provider 05/18/20 11/19/22 Elaina Moreno MD 909 [place], [place] 8[address] Cardiovascular & Thoracic Surgery 08/06/20 Kelsi Hassan MD [address] [place] [address] 284 [place] [address] Assigned Pulmonology Provider 06/28/21 02/05/22 John Webb MD [address] [address] Cardiovascular Disease 08/25/21 John Webb MD [address] [address] Cardiovascular Disease 08/25/21 Estella Hassan, [facility] [address] [place] [address] Assigned MTM Pharmacist 09/05/21 Nav Hughes MD [address] [place] [address] Assigned Heart and Vascular Provider 10/31/21 09/03/23 Cassandra Mendoza MD ORTHOPAEDIC SURGERY [address] [address] Assigned Musculoskeletal Provider 10/31/21 08/13/22 Estella Hassan, [facility] [address] [place] [address] Assigned MTM Pharmacist 12/09/21 Mitra Kendall, [facility] Lead Instrumentation Fitter Primary Care - CC 01/26/2210/28 Lindsay Carey OD 3305 [facility] [place] [place] [address] Ophthalmology 01/29/22 Ravi Brownlee MD 420 [facility] 276 [place], [place] 426415 Assigned Pulmonology Provider 02/06/22 09/03/23 Arabella Fishman MA Financial Resource Worker 02/22/22 02/23/22 Richard Kam MD 500 [place], [place] 248545 Assigned Musculoskeletal Provider 08/14/22 Marisol Patel, [facility] [address] [phone] Pharmacist Pharmacist 11/22/22 01/09/23 [place] [address] [place] PENA, [address] [address] Assigned Neuroscience Provider 01/01/23 Rosemarie Mcdowell, RN Machine Hose Cutter Diabetes Education 03/17/23 Ravi Brownlee MD [address] [place] [address] Assigned Heart and Vascular Provider 09/04/23 01/03/24 Mitra Kendall, [facility] Lead Instrumentation Fitter Primary Care - CC 12/12/23 Lizet Mann PA-C [address] [place] [address] Assigned Cancer Care Provider 01/04/24 Ravi Brownlee MD [address] [place] [address] Assigned Pulmonology Provider 01/04/24 Nav Hughes MD [address] [facility] [place] [address] Assigned Heart and Vascular Provider 01/04/24 Manuel Ahn OD [address] [place] [address] Knot Saw Operator 01/05/24 Arabella Fishman MA Financial Resource Worker 01/06/24 Thalia Charles [facility] Pharmacist Pharmacy 01/26/24 documented as of this encounter
--- OUTSIDE RECORDS SUMMARY | 2024-01-31 20:14 | XMS_ITS | Encounter Summary ---
Author Organization [facility] Address [address] [place] [address] Care Team Providers Care Director Of Psychiatry Name Role Phone Va Glez MD Primary Care Provider Va Glez MD Unavailable Kerry Bernal RN Unavailable [phone] Ravi Barillas DPM Unavailable [phone] Christy CampuzanoC Unavailable [phone] Hans Cannon MD Unavailable [phone] Mitar Kendall BETTING AGENCY COUNTER CLERK Unavailable [phone] Faith Pool CHW Unavailable [phone] Burt Jovel MD Unavailable [phone] Burt Jovel MD Unavailable [phone] Estella Hassan [facility] Unavailable [phone] Sheila Matias Unavailable Unavailable Reji Chavez MD Unavailable [phone] Josh Cordero MD, Madhuri Unavailable [phone] Josh Cordero MD, Madhuri Unavailable [phone] Kelsi Hassan MD Unavailable [phone] John Webb MD Unavailable [phone] John Webb MD Unavailable [phone] Estella Hassan [facility] Unavailable Nav Hughes MD Unavailable [phone] Cassandra Mendoza MD Unavailable Estella Hassan [facility] Unavailable Mitra Kendall BETTING AGENCY COUNTER CLERK Unavailable Lindsay Carey OD Unavailable [phone] Ravi Brownlee MD Unavailable Arabella Fishman MA Unavailable [phone] Richard Kam MD Unavailable Marisol Patel [facility] Unavailable Gaby Vila DO Unavailable Rosemarie Mcdowell RN Unavailable [phone] Ravi Brownlee MD Unavailable Mitra Kendall BETTING AGENCY COUNTER CLERK Unavailable Lizet Mann PA-C Unavailable Ravi Brownlee MD Unavailable Nav Hughes MD Unavailable [phone] Manuel Ahn OD Unavailable Arabella Fishman MA Unavailable [phone] Thalia Charles [facility] Unavailable Unavailable Encounter Details Date Type Department Care Team (Late st Contact Info) Description 09/27/2019 [facility] [address] [address] Jenifer Rodriguez Social History Tobacco Use Types Packs/Day Years [...] Answer Date Recorded PHQ-2 Score 0 09/13/2019 [facility] of Occupat ional Health - Occupational Stress [...] on file Legal 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 CARD MOUNTER Gender Identity Not on file Sexual Orientation Not on file Occupation Industry Job Start Date Job End Date Not on file Not on file Not on file Not on file COVID-19 Exposure Response Date Recorded In the last month, have you been in contact with someone who was confirmed or suspected to have Coronavirus / COVID-19? No / Unsure 09/13/2019 3:09 PM CDT documented as of this encounter Plan of Treatment Upcoming Encounters Date Type Department Care Team (Late st Contact Info) Description 02/01/2024 3:00 PM CARD MOUNTER Office Visit [facility] 6[address] [place] [phone] Manuel Ahn, [address] [place] [address] 02/02/2024 1:30 PM CARD MOUNTER Therapy Visit [facility] [address] [facility] [address] [place] [phone] Alicja Roldan, OT 909 [place] [address] 02/05/2024 8:00 PM CARD MOUNTER Therapy Visit [facility] [address] [place] [address] 103 [place] [phone] 02/13/2024 4:30 PM CARD MOUNTER Oncology Visit [facility] 909 [place] [phone] Marian gAustin APRN STUDENT ADVISOR [address] [facility] [address] [place] [address] 03/01/2024 7:00 AM CARD MOUNTER Office Visit [facility] [address] [place] [phone] Estella Hassan, [facility] 30[address] [place] [address] 03/23/2024 2:00 PM CARD MOUNTER Office [facility] [address] [place] [address] [place] [address] Lizet Mann PA-C 717 [place] [address] 03/29/2024 3:30 PM CARD MOUNTER Office Visit [facility] 2945 [facility] 200 [place] [phone] Hakeem Chacko MBBS 2945 [place] [address] 05/03/2024 3:00 PM CARD MOUNTER Office Visit [address] [phone] Gaurav Valenzuela, DEPLOYMENT MANAGER [address] 751624 05/22/2024 10:30 AM CDT Office Visit [address] [phone] Estella Hassan, [facility] [address] [place] [address] 05/22/2024 11:30 AM CDT Office Visit [address] [address] Va Glez MD [address] [place] [address] [phone] documented as of this encounter Visit Diagnoses Not on filedocumented in this encounter Additional Health Concerns Infection Onset Date Last Indicated Resolved Time Rule Out COVID-19 04/07/2020 04/07/2020 04/08/2020 7:51 PM CARD MOUNTER Rule Out COVID-19 04/21/2020 04/21/2020 04/22/2020 5:44 PM CARD MOUNTER Rule Out COVID-19 06/22/2021 06/22/2021 06/23/2021 8:58 PM CDT Rule Out COVID-19 01/22/2022 01/22/2022 01/24/2022 1:05 PM CARD MOUNTER Rule Out COVID-19 01/25/2022 01/25/2022 01/25/2022 5:21 AM CARD MOUNTER Influenza 01/25/2022 01/25/2022 02/01/2022 11:4 1 PM CARD MOUNTER Rule Out COVID-19 07/29/2022 07/29/2022 07/31/2022 11:17 AM CDT Rule Out COVID-19 03/23/2023 03/23/2023 03/23/2023 6:30 PM CARD MOUNTER COVID-19 03/23/2023 03/23/2023 04/13/2023 11:4 0 PM CARD MOUNTER Rule Out COVID-19 06/05/2023 06/05/2023 06/05/2023 5:53 PM CDT Rule Out COVID-19 11/06/2023 11/06/2023 11/06/2023 11:05 PM CDT Rule Out COVID-19 11/20/2023 11/20/2023 11/20/2023 6:43 PM CDT Rule Out COVID-19 12/27/2023 12/27/2023 12/29/2023 1:37 PM CDT Assessment Noted Time PHQ-9 Depression Total Score: 4 09/14/19 7:06 AM CDT documented as of this encounter Care Teams Director Of Psychiatry Relationship Specialty [place] [address] [address] [address] PCP - General Family Practice 07/11/14 [place] [address] [address] [phone] Assigned PCP 12/16/11 Kerry Bernal RN Personal Advocate & Liaison (PAL) 01/08/19 07/10/23 Ravi Barillas DPM [address] [facility] [address] [place], [place] 7[address] Assigned Musculoskeletal Provider 03/23/20 10/30/21 Christy Campuzano PA-C [address] [place] [address] 143982 Referring Physician Family Medicine 04/22/20 Hans Cannon MD [address] [place] [address] Resident Pulmonary Disease 04/22/20 Mitra Kendall, BETTING AGENCY COUNTER CLERK Lead Commercial Producer Primary Care - CC 01/08/1901/12 Faith Pool, W Community Health Worker 04/30/2006/05 Burt Jovel MD Internal Medicine 05/08/20 12/13/23 Burt Jovel MD [address] [place] [address] [phone] Assigned Heart and Vascular Provider 05/11/20 05/17/20 Estella Hassan, [facility] [place] [address] Pharmacist Pharmacist 05/26/20 Sheila Matias Financial Resource Worker Primary Care - CC 06/02/20 06/02/20 Reji Chavez MD [address] [place] [phone] Assigned Heart and Vascular Provider 05/18/20 10/30/21 Elaina Moreno MD [address] [place] [address] Assigned Surgical Provider 05/18/20 11/19/22 Elaina Moreno MD [address] [place] [address] 245305 Cardiovascular & Thoracic Surgery 08/06/20 Kelsi Hassan MD 420 [facility] [address] [place], [place] 306115 Assigned Pulmonology Provider 06/28/21 02/05/22 John Webb MD [address] [place] [address] Cardiovascular Disease 08/25/21 John Webb MD [address] [place] [address] Cardiovascular Disease 08/25/21 Estella Hassan, [facility] [address] [place] [address] Assigned MTM Pharmacist 09/05/21 Nav Hughes MD [address] [place] [address] Assigned Heart and Vascular Provider 10/31/21 09/03/23 Cassandra Mendoza MD ORTHOPAEDIC SURGERY [address] [address] Assigned Musculoskeletal Provider 10/31/21 08/13/22 Estella Hassan, [facility] [address] [place] [address] Assigned MTM Pharmacist 12/09/21 Mitra Kendall, [facility] Lead Commercial Producer Primary Care - CC 01/26/2210/28 Lindsay Carey OD [address] [facility] [address] Ophthalmology 01/29/22 Ravi Brownlee MD [address] [place] [address] Assigned Pulmonology Provider 02/06/22 09/03/23 Arabella Fishman MA Financial Resource Worker 02/22/22 02/23/22 Richard Kam MD [address] [place] [address] Assigned Musculoskeletal Provider 08/14/22 Marisol Patel, [facility] [address] [place] [address] Pharmacist Pharmacist 11/22/22 01/09/23 [place] [address] [place] , [address] [address] Assigned Neuroscience Provider 01/01/23 Rosemarie Mcdowell, RN Phlebotomy Manager Diabetes Education 03/17/23 Ravi Brownlee MD [address] [place] [address] Assigned Heart and Vascular Provider 09/04/23 01/03/24 Mitra Kendall, [facility] Lead Commercial Producer Primary Care - CC 12/12/23 Lizet Mann PA-C 7[address] [place], [place] 368815 Assigned Cancer Care Provider 01/04/24 Ravi Brownlee MD [address] [place] [address] 852615 Assigned Pulmonology Provider 01/04/24 Nav Hughes MD 6[address] [facility] [place] [address] Assigned Heart and Vascular Provider 01/04/24 Manuel Ahn OD [address] [place] [address] [id number] Keno Manager 01/05/24 Arabella Fishman MA Financial Resource Worker 01/06/24 Thalia Charles [facility] Pharmacist Pharmacy 01/26/24 documented as of this encounter
--- OUTSIDE RECORDS SUMMARY | 2024-01-31 20:14 | XMS_ITS | Encounter Summary ---
Author Organization [facility] Address [address] [place] [address] Care Team Providers Care Medical Lab Director Name Role Phone Va Glez MD Primary Care Provider Va Glez MD Unavailable Kerry Bernal RN Unavailable [phone] Ravi Barillas DPM Unavailable [phone] Christy CampuzanoC Unavailable [phone] Hans Cannon MD Unavailable Mitra Kendall COOKY MACHINE OPERATOR Unavailable [phone] Faith Pool CHW Unavailable [phone] Burt Jovel MD Unavailable [phone] Burt Jovel MD Unavailable [phone] Estella Hassan [facility] Unavailable [phone] Sheila Matias Unavailable Unavailable Reji Chavez MD Unavailable Josh Cordero MD, Madhuri Unavailable [phone] Josh Cordero MD, Madhuri Unavailable [phone] Kelsi Hassan MD Unavailable [phone] John Webb MD Unavailable [phone] John Webb MD Unavailable Estella Hassan [facility] Unavailable Nav Hughes MD Unavailable [phone] Cassandra Mendoza MD Unavailable Estella Hassan [facility] Unavailable [phone] Mitra Kendall COOKY MACHINE OPERATOR Unavailable Lindsay Carey OD Unavailable Ravi Brownlee MD Unavailable Arabella Fishman MA Unavailable Richard Kam MD Unavailable Marisol Patel H Unavailable [phone] Gaby Vila DO Unavailable Rosemarie Mcdowell RN Unavailable [phone] Ravi Brownlee MD Unavailable Mitra Kendall COOKY MACHINE OPERATOR Unavailable Lizet Mann PA-C Unavailable Ravi Brownlee MD Unavailable [phone] Nav Hughes MD Unavailable [phone] Manuel Ahn OD Unavailable [phone] Arabella Fishman MA Unavailable [phone] Thalia Charles [facility] Unavailable Unavailable Encounter Details Date Type Department Care Team (Late st Contact Info) Description 05/06/2020 MyC Medical Advice [facility] [address] [address] Nilsa Harper LIC[facility] [address], [address] [place] [address] Social History Tobacco Use Types [...] and Family Not on file 05/31/2019 Attends [employer] Not on file 05/30 Active Member [...] Answer Date Recorded PHQ-2 Score 2 03/27/2020 [facility] of Occupat ional Health [...] on file Legal 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 EYEGLASS CUTTER Gender Identity Not on file Sexual Orientation Not on file Occupation Industry Job Start Date Job End Date Not on file Not on file Not on file Not on file COVID-19 Exposure Response Date Recorded In the last month, have you been in contact with someone who was confirmed or suspected to have Coronavirus / COVID-19? No / Unsure 05/08/2020 8:43 AM EYEGLASS CUTTER documented as of this encounter Plan of Treatment Upcoming Encounters Date Type Department Care Team (Late st Contact Info) Description 02/01/2024 3:00 PM EYEGLASS CUTTER Office Visit [facility] [address] [place] [phone] Manuel Ahn, [address] [place] [address] 02/02/2024 1:30 PM EYEGLASS CUTTER Therapy Visit [facility] [address] [facility] [address] [place] [phone] Alicja Roldan, OT 909 [place], [place] [address]455 02/05/2024 8:00 PM EYEGLASS CUTTER Therapy Visit [facility] [place] [address] [place] [address] 103 [place] [phone] 02/13/2024 4:30 PM EYEGLASS CUTTER Oncology Visit [facility] 909 [place] [phone] Marian Agustin, LINE INSTALLER REPAIRER MEDICAL CHARGE ENTRY SPECIALIST [address] [facility] [address] [place], [place] [address]75 03/01/2024 7:00 AM EYEGLASS CUTTER Office Visit [facility] [address] [place] [phone] Estella Hassan, [place] [address] [place] [address] 03/23/2024 2:00 PM EYEGLASS CUTTER Office Visit [facility] [address] [place] [address] Lizet Mann PA-C 717 [place] [address] 03/29/2024 3:30 PM EYEGLASS CUTTER Office Visit [facility] [address] [phone] Hakeem Chacko MBBS [address] [place] [address] 05/03/2024 3:00 PM EYEGLASS CUTTER Office Visit [facility] [address] [place] [phone] Gaurav Valenzuela APRN [address] [address] 05/22/2024 10:30 AM CDT Office Visit [address] [phone] Estella Hassan, [place] [address] [place] [address] 05/22/2024 11:30 AM CDT Office Visit [address] [phone] Va Glez MD [address] [place] [address] documented as of this encounter Visit Diagnoses Not on filedocumented in this encounter Additional Health Concerns Infection Onset Date Last Indicated Resolved Time Rule Out COVID-19 06/22/2021 06/22/2021 06/23/2021 8:58 PM CDT Rule Out COVID-19 01/22/2022 01/22/2022 01/24/2022 1:05 PM EYEGLASS CUTTER Rule Out COVID-19 01/25/2022 01/25/2022 01/25/2022 5:21 AM EYEGLASS CUTTER Influenza 01/25/2022 01/25/2022 02/01/2022 11:4 1 PM EYEGLASS CUTTER Rule Out COVID-19 07/29/2022 07/29/2022 07/31/2022 11:17 AM CDT Rule Out COVID-19 03/23/2023 03/23/2023 03/23/2023 6:30 PM EYEGLASS CUTTER COVID-19 03/23/2023 03/23/2023 04/13/2023 11:4 0 PM EYEGLASS CUTTER Rule Out COVID-19 06/05/2023 06/05/2023 06/05/2023 5:53 PM CDT Rule Out COVID-19 11/06/2023 11/06/2023 11/06/2023 11:05 PM CDT Rule Out COVID-19 11/20/2023 11/20/2023 11/20/2023 6:43 PM CDT Rule Out COVID-19 12/27/2023 12/27/2023 12/29/2023 1:37 PM CDT Assessment Noted Time PHQ-9 Depression Total Score: 6 03/27/19 12:02 PM EYEGLASS CUTTER documented as of this encounter Care Teams Medical Lab Director Relationship Specialty [place] [address] [place] [address] PCP - General Family Practice 07/11/14 [place] [address] [place] [address] Assigned PCP 12/16/11 Kerry Bernal, [employer] Personal Advocate & Liaison (PAL) 01/08/19 07/10/23 Ravi Barillas DPM [address] [facility] [address] [place] [address] Assigned Musculoskeletal Provider 03/23/20 10/30/21 Christy Campuzano PA-C [address] [place] [address] 336222 Referring Physician Family Medicine 04/22/20 Hans Cannon MD [address] [place] [address] 645622 Resident Pulmonary Disease 04/22/20 Mitra Kendall, [facility] Lead Mumps Developer Primary Care - CC 01/08/1901/12 Faith Pool, [facility] Community Health Worker 04/30/2006/05 Burt Jovel MD Internal Medicine 05/08/20 12/13/23 Burt Jovel MD [address]45 [facility] [address] [place], [place] [phone] Assigned Heart and Vascular Provider 05/11/20 05/17/20 Estella Hassan, [facility] 3033 [place] [address] Pharmacist Pharmacist 05/26/20 Sheila Matias Financial Resource Worker Primary Care - CC 06/02/20 06/02/20 Reji Chavez MD [address] [place] [address] Assigned Heart and Vascular Provider 05/18/20 10/30/21 Elaina Moreno MD [address] [place] [address] Assigned Surgical Provider 05/18/20 11/19/22 Elaina Moreno MD [address] [place] [address] Cardiovascular & Thoracic Surgery 08/06/20 Kelsi Hassan MD [address] [place] [address] 284 [place] [address] Assigned Pulmonology Provider 06/28/21 02/05/22 John Webb MD [address] [address] Cardiovascular Disease 08/25/21 John Webb MD [address] [address] Cardiovascular Disease 08/25/21 Estella Hassan, [facility] [address] [place] [address] Assigned MTM Pharmacist 09/05/21 Nav Hughes MD [address] [place] [address] Assigned Heart and Vascular Provider 10/31/21 09/03/23 Cassandra Mendoza MD ORTHOPAEDIC SURGERY [address] [address] Assigned Musculoskeletal Provider 10/31/21 08/13/22 Estella Hassan, [facility] [address] [place] [address] Assigned MTM Pharmacist 12/09/21 Mitra Kendall, [facility] Lead Mumps Developer Primary Care - CC 01/26/2210/28 Lindsay Carey OD [address] [facility] [place] [address] Ophthalmology 01/29/22 Ravi Brownlee MD [address] [place] [address] 276 [place] [address] Assigned Pulmonology Provider 02/06/22 09/03/23 Arabella Fishman MA Financial Resource Worker 02/22/22 02/23/22 Richard Kam MD 500 [place] [address] Assigned Musculoskeletal Provider 08/14/22 Marisol Patel, [facility] [address] [place] [address] Pharmacist Pharmacist 11/22/22 01/09/23 [place] [address] [place], [address] [address] Assigned Neuroscience Provider 01/01/23 Rosemarie Mcdowell, RN Dock Pumper Diabetes Education 03/17/23 Ravi Brownlee MD [address] [place] [address] 112245 Assigned Heart and Vascular Provider 09/04/23 01/03/24 Mitra Kendall, [facility] Lead Mumps Developer Primary Care - CC 12/12/23 Lizet Mann PA-C [address] [place] [address] 084135 Assigned Cancer Care Provider 01/04/24 Ravi Brownlee MD [address] [place] [address] Assigned Pulmonology Provider 01/04/24 Nav Hughes MD 6[address] [facility] [place] [address] Assigned Heart and Vascular Provider 01/04/24 Manuel Ahn OD [address] [facility] [place] [address] Homebound Teacher 01/05/24 Arabella Fishman MA Financial Resource Worker 01/06/24 Thalia Charles [facility] Pharmacist Pharmacy 01/26/24 documented as of this encounter
--- OUTSIDE RECORDS SUMMARY | 2024-01-31 20:14 | XMS_ITS | Encounter Summary ---
Author Organization [place] Address [address] [place] [address] Care Team Providers Care Command Post Superintendent Name Role Phone Va Glez MD Primary Care Provider Va Glez MD Unavailable Kerry Bernal RN Unavailable [phone] Ravi Barillas DPM Unavailable [phone] Christy CampuzanoC Unavailable [phone] Hans Cannon MD Unavailable [phone] Mitra Kendall JUNIOR ART DIRECTOR Unavailable [phone] Faith Pool CHW Unavailable [phone] Burt Jovel MD Unavailable [phone] Burt Jovel MD Unavailable [phone] Estella Hassan [facility] Unavailable [phone] Sheila Matias Unavailable Unavailable Reji Chavez MD Unavailable [phone] Josh Cordero MD, Madhuri Unavailable [phone] Josh Cordero MD, Madhuri Unavailable [phone] Kelsi Hassan MD Unavailable [phone] John Webb MD Unavailable [phone] John Webb MD Unavailable Estella Hassan [facility] Unavailable Nav Hughes MD Unavailable [phone] Cassandra Mendoza MD Unavailable Estella Hassan [facility] Unavailable Mitra Kendall JUNIOR ART DIRECTOR Unavailable Lindsay Carey OD Unavailable Ravi Brownlee MD Unavailable Arabella Fishman MA Unavailable [phone] Richard Kam MD Unavailable Marisol Patel [facility] Unavailable Gaby Vila DO Unavailable Rosemarie Mcdowell RN Unavailable [phone] Ravi Brownlee MD Unavailable Mitra Kendall JUNIOR ART DIRECTOR Unavailable Lizet Mann PA-C Unavailable Ravi Brownlee MD Unavailable Nav Hughes MD Unavailable [phone] Manuel Ahn OD Unavailable Arabella Fishman MA Unavailable [phone] Thalia Charles [facility] Unavailable Unavailable Encounter Details Date Type Department Care Team (Latest Contact Info) Description 05/08/2020 Prep for Procedure [facility] [address] [place] [phone] Elaina Moreno MD [address] [place] [address] Mediastinal cyst (Primary Dx) Social History Tobacco [...] and Family Not on file 05/31/2019 Attends [employer] Not on file 05/30 Active Member [...] Answer Date Recorded PHQ-2 Score 2 03/27/2020 [facility] [...] on file Legal 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 HAND TOOL FILER Gender Identity Not on file Sexual Orientation Not on file Occupation Industry Job Start Date Job End Date Not on file Not on file Not on file Not on file COVID-19 Exposure Response Date Recorded In the last month, have you been in contact with someone who was confirmed or suspected to have Coronavirus / COVID-19? No / Unsure 05/08/2020 8:43 AM HAND TOOL FILER documented as of this encounter Plan of Treatment Upcoming Encounters Date Type Department Care Team (Late st Contact Info) Description 02/01/2024 3:00 PM HAND TOOL FILER Office Visit [facility] [address] [place] [address] [phone] Manuel Ahn, [address] [place] [address] 02/02/2024 1:30 PM HAND TOOL FILER Therapy Visit [facility] [address] [facility] [address] [place] [phone] Alicja Roldan, OT 909 [place], [place] 971425 02/05/2024 8:00 PM HAND TOOL FILER Therapy Visit [facility] [address] [place] [address] 103 [place] [phone] 02/13/2024 4:30 PM HAND TOOL FILER Oncology Visit [facility] 909 [place] [phone] Marian Agustin, NESSA RN RESEARCH [address] [facility] [address] [place], [place] 3420[address] 03/01/2024 7:00 AM HAND TOOL FILER Office Visit [facility] [address] [place] [phone] Estella Hassan, [place] [address] [place] [address] 03/23/2024 2:00 PM HAND TOOL FILER [facility] [address] [place] [phone] Lizet Mann PA-C 717 [place] [address] 03/29/2024 3:30 PM HAND TOOL FILER Office [facility] [address] [phone] Hakeem Chacko MBBS [address] [place] [address] 05/03/2024 3:00 PM HAND TOOL FILER Office 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 documented in this encounter Additional Health Concerns Infection Onset Date Last Indicated Resolved Time Rule Out COVID-19 06/22/2021 06/22/2021 06/23/2021 8:58 PM CDT Rule Out COVID-19 01/22/2022 01/22/2022 01/24/2022 1:05 PM HAND TOOL FILER Rule Out COVID-19 01/25/2022 01/25/2022 01/25/2022 5:21 AM HAND TOOL FILER Influenza 01/25/2022 01/25/2022 02/01/2022 11:4 1 PM HAND TOOL FILER Rule Out COVID-19 07/29/2022 07/29/2022 07/31/2022 11:17 AM CDT Rule Out COVID-19 03/23/2023 03/23/2023 03/23/2023 6:30 PM HAND TOOL FILER COVID-19 03/23/2023 03/23/2023 04/13/2023 11:4 0 PM HAND TOOL FILER Rule Out COVID-19 06/05/2023 06/05/2023 06/05/2023 5:53 PM CDT Rule Out COVID-19 11/06/2023 11/06/2023 11/06/2023 11:05 PM CDT Rule Out COVID-19 11/20/2023 11/20/2023 11/20/2023 6:43 PM CDT Rule Out COVID-19 12/27/2023 12/27/2023 12/29/2023 1:37 PM CDT Assessment Noted Time PHQ-9 Depression Total Score: 6 03/27/19 12:02 PM HAND TOOL FILER documented as of this encounter Care Teams Command Post Superintendent Relationship Specialty [place] [address] [place] [address] PCP - General Family Practice 07/11/14 [place] [address] [place] [id number] Assigned PCP 12/16/11 Kerry Bernal, INOCENCIO Personal Advocate & Liaison (PAL) 01/08/19 07/10/23 Ravi Barillas DPM [address] [facility] [address] [place] [address] Assigned Musculoskeletal Provider 03/23/20 10/30/21 Christy Campuzano PA-C [address] [place] [address] 786442 Referring Physician Family Medicine 04/22/20 Hans Cannon MD [address] [place] [address] [id number] Resident Pulmonary Disease 04/22/20 Mitra Kendall, JUNIOR ART DIRECTOR Lead Byproduct Engineer Primary Care - CC 01/08/1901/12 Faith Pool, W Community Health Worker 04/30/2006/05 Burt Jovel MD Internal Medicine 05/08/20 12/13/23 Burt Jovel MD [facility] [address]A [place], [place] [phone] Assigned Heart and Vascular Provider 05/11/20 05/17/20 Estella Hassan, [facility] 3033 [place] [address] Pharmacist Pharmacist 05/26/20 Sheila Matias Financial Resource Worker Primary Care - CC 06/02/20 06/02/20 Reji Chavez MD [address] [place] [phone] Assigned Heart and Vascular Provider 05/18/20 10/30/21 Elaina Moreno MD 909 [place] [address] Assigned Surgical Provider 05/18/20 11/19/22 Elaina Moreno MD [address] [place] [address] 971135 Cardiovascular & Thoracic Surgery 08/06/20 Kelsi Hassan MD [address] [place] [address] 284 [place], [place] 228705 Assigned Pulmonology Provider 06/28/21 02/05/22 John Webb MD [address] [place] [address] Cardiovascular Disease 08/25/21 John Webb MD [address] 204345 Cardiovascular Disease 08/25/21 Estella Hassan, [facility] [address] [place] [address] Assigned MTM Pharmacist 09/05/21 Nav Hughes MD [address] [place] [address] Assigned Heart and Vascular Provider 10/31/21 09/03/23 Cassandra Mendoza MD ORTHOPAEDIC SURGERY [address] [address] Assigned Musculoskeletal Provider 10/31/21 08/13/22 Estella Hassan, [facility] [address] [place] [address] Assigned MTM Pharmacist 12/09/21 Mitra Kendall, [facility] Lead Byproduct Engineer Primary Care - CC 01/26/2210/28 [place] [address] [place] [address] [place] [address] Ophthalmology 01/29/22 Ravi Brownlee MD [address] [place] [address] Assigned Pulmonology Provider 02/06/22 09/03/23 Arabella Fishman MA Financial Resource Worker 02/22/22 02/23/22 Richard Kam MD 500 [place] [address] Assigned Musculoskeletal Provider 08/14/22 Marisol Patel, [facility] [address] [place] [address] Pharmacist Pharmacist 11/22/22 01/09/23 [place] [address] BC PENA, [address] [address] Assigned Neuroscience Provider 01/01/23 Rosemarie Mcdowell, RN Topographic Computator Diabetes Education 03/17/23 Ravi Brownlee MD [address] [place] [address] Assigned Heart and Vascular Provider 09/04/23 01/03/24 Mitra Kendall, [facility] Lead Byproduct Engineer Primary Care - CC 12/12/23 Lizet Mann PA-C [address] [place] [address] Assigned Cancer Care Provider 01/04/24 Ravi Brownlee MD [address] [place] [address] Assigned Pulmonology Provider 01/04/24 Nav Hughes MD 6[address] [facility] [place] [address] Assigned Heart and Vascular Provider 01/04/24 Manuel Ahn OD [address] [facility] [place] [place] 772322 Middle School Spanish Teacher 01/05/24 Arabella Fishman MA Financial Resource Worker 01/06/24 Thalia Charles [facility] Pharmacist Pharmacy 01/26/24 documented as of this encounter
--- OUTSIDE RECORDS SUMMARY | 2024-01-31 20:14 | XMS_ITS | Encounter Summary ---
Author Organization [place] Address [address] [place] [address] Care Team Providers Care It Integration Architect Name Role Phone Va Glez MD Primary Care Provider Va Glez MD Unavailable Kerry Bernal RN Unavailable [phone] Ravi Barillas DPM Unavailable [phone] Christy CampuzanoC Unavailable [phone] Hans Cannon MD Unavailable [phone] Mitra Kendall DIRECTOR OF FLIGHT OPERATIONS Unavailable [phone] Pool CHW Unavailable [phone] Burt Jovel MD Unavailable [phone] Burt Jovel MD Unavailable [phone] Estella Hassan [facility] Unavailable [phone] Sheila Matias Unavailable Unavailable Reji Chavez MD Unavailable Josh Cordero MD, Madhuri Unavailable [phone] Josh Cordero MD, Madhuri Unavailable [phone] Kelsi Hassna MD Unavailable [phone] John Webb MD Unavailable [phone] John Webb MD Unavailable Estella Hassan [facility] Unavailable [phone] Nav Hughes MD Unavailable [phone] Cassandra Mendoza MD Unavailable Estella Hassan [facility] Unavailable [phone] Mitra Kendall DIRECTOR OF FLIGHT OPERATIONS Unavailable Lindsay Carey OD Unavailable [phone] Ravi Brownlee MD Unavailable Arabella Fishman MA Unavailable [phone] Richard Kam MD Unavailable Marisol Patel [facility] Unavailable Gaby Vila DO Unavailable Rosemarie Mcdowell RN Unavailable Ravi Brownlee MD Unavailable Mitra Kendall DIRECTOR OF FLIGHT OPERATIONS Unavailable Lizet Mann PA-C Unavailable Ravi Brownlee MD Unavailable Nav Hughes MD Unavailable [phone] Manuel Ahn OD Unavailable Arabella Fishman MA Unavailable [phone] Thalia Charles [facility] Unavailable Unavailable Encounter Details Date Type Department Care Team (Late st Contact Info) Description 05/13/2020 [facility] [address] [place] [phone] Elaina Moreno MD [address] [place] [address] Social History Tobacco Use Types Packs/Day [...] Answer Date Recorded PHQ-2 Score 2 03/27/2020 [facility] Health [...] on file Legal 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 GOLF COURSE EQUIPMENT OPERATOR Gender Identity Not on file Sexual Orientation Not on file Occupation Industry Job Start Date Job End Date Not on file Not on file Not on file Not on file COVID-19 Exposure Response Date Recorded In the last month, have you been in contact with someone who was confirmed or suspected to have Coronavirus / COVID-19? No / Unsure 05/13/2020 2:07 PM GOLF COURSE EQUIPMENT OPERATOR documented as of this encounter Plan of Treatment Upcoming Encounters Date Type Department Care Team (Late st Contact Info) Description 02/01/2024 3:00 PM GOLF COURSE EQUIPMENT OPERATOR Office Visit [facility] [address] [place] [address] [phone] Manuel Ahn, [address] [place] [address] 02/02/2024 1:30 PM GOLF COURSE EQUIPMENT OPERATOR Therapy Visit [facility] [address] [facility] [address] [place] [phone] Alicja Roldan OT 909 [place] [address] 02/05/2024 8:00 PM GOLF COURSE EQUIPMENT OPERATOR Therapy Visit [facility] [address] [place] [address] [address] [place] [phone] 02/13/2024 4:30 PM GOLF COURSE EQUIPMENT OPERATOR Oncology Visit [facility] 909 [place] [phone] Marian Agustin APRN MANAGER APPOINTMENT [address] [facility] 207 [place], [place] 0[address]285 03/01/2024 7:00 AM GOLF COURSE EQUIPMENT OPERATOR Office [facility] [address] [place] [phone] Estella Hassan, [place] [address] [address] [place] [address] 03/23/2024 2:00 PM GOLF COURSE EQUIPMENT OPERATOR Office Visit [facility] [address] [place] [phone] Lizet Mann PA-C 717 [place] [address] 03/29/2024 3:30 PM GOLF COURSE EQUIPMENT OPERATOR Office Visit [facility] 2945 [facility] 200 [place] [address] Hakeem Chacko MBBS [address] [place] [address] 05/03/2024 3:00 PM GOLF COURSE EQUIPMENT OPERATOR Office [facility] [address] [place] [phone] Gaurav Valenzuela, NESSA [address] [address] 05/22/2024 10:30 AM CDT Office Visit [address] [phone] Estella Hassan, [place] [address] [place] [address] 05/22/2024 11:30 AM CDT Office Visit [address] [phone] Va Glez MD [address] [place] [address] documented as of this encounter Visit Diagnoses Not on filedocumented in this encounter Additional Health Concerns Infection Onset Date Last Indicated Resolved Time Rule Out COVID-19 06/22/2021 06/22/2021 06/23/2021 8:58 PM CDT Rule Out COVID-19 01/22/2022 01/22/2022 01/24/2022 1:05 PM GOLF COURSE EQUIPMENT OPERATOR Rule Out COVID-19 01/25/2022 01/25/2022 01/25/2022 5:21 AM GOLF COURSE EQUIPMENT OPERATOR Influenza 01/25/2022 01/25/2022 02/01/2022 11:4 1 PM GOLF COURSE EQUIPMENT OPERATOR Rule Out COVID-19 07/29/2022 07/29/2022 07/31/2022 11:17 AM CDT Rule Out COVID-19 03/23/2023 03/23/2023 03/23/2023 6:30 PM GOLF COURSE EQUIPMENT OPERATOR COVID-19 03/23/2023 03/23/2023 04/13/2023 11:4 0 PM GOLF COURSE EQUIPMENT OPERATOR Rule Out COVID-19 06/05/2023 06/05/2023 06/05/2023 5:53 PM CDT Rule Out COVID-19 11/06/2023 11/06/2023 11/06/2023 11:05 PM CDT Rule Out COVID-19 11/20/2023 11/20/2023 11/20/2023 6:43 PM CDT Rule Out COVID-19 12/27/2023 12/27/2023 12/29/2023 1:37 PM CDT Assessment Noted Time PHQ-9 Depression Total Score: 6 03/27/19 12:02 PM GOLF COURSE EQUIPMENT OPERATOR documented as of this encounter Care Teams It Integration Architect Relationship Specialty [place] [address] [place] [address] PCP - General Family Practice 07/11/14 [place] [address] [place] [address] Assigned PCP 12/16/11 Kerry Bernal, RN Personal Advocate & Liaison (PAL) 01/08/19 07/10/23 Ravi Barillas DPM [address] [facility] [address] [place] [address] Assigned Musculoskeletal Provider 03/23/20 10/30/21 Christy Campuzano PA-C [address] [place] [address] 913982 Referring Physician Family Medicine 04/22/20 Hans Cannon MD [address] [place] [address] 908172 Resident Pulmonary Disease 04/22/20 Mitra Kendall, [facility] Lead Claim Taker Primary Care - CC 01/08/1901/12 Faith Pool, [facility] Community Health Worker 04/30/2006/05 Burt Jovel MD Internal Medicine 05/08/20 12/13/23 Burt Jovel MD [facility] [address] [address] Assigned Heart and Vascular Provider 05/11/20 05/17/20 Estella Hassan, [facility] [address] [place] [address] Pharmacist Pharmacist 05/26/20 Sheila Matias Financial Resource Worker Primary Care - CC 06/02/20 06/02/20 Reji Chavez MD [address] [place] [address] Assigned Heart and Vascular Provider 05/18/20 10/30/21 Elaina Moreno MD [address] [place] [address] Assigned Surgical Provider 05/18/20 11/19/22 Elaina Moreno MD [address] [place] [address] Cardiovascular & Thoracic Surgery 08/06/20 Kelsi Hassan MD [address] [place] [address] 284 [place] [address] Assigned Pulmonology Provider 06/28/21 02/05/22 John Webb MD [address] [address] Cardiovascular Disease 08/25/21 John Webb MD [address] [address] Cardiovascular Disease 08/25/21 Estella Hassan, [facility] [address] [place] [address] Assigned MTM Pharmacist 09/05/21 Nav Hughes MD [address] [place] [address] Assigned Heart and Vascular Provider 10/31/21 09/03/23 Cassandra Mendoza MD ORTHOPAEDIC SURGERY [address] [address] Assigned Musculoskeletal Provider 10/31/21 08/13/22 Estella Hassan, [facility] 3033 [place] [address] Assigned MTM Pharmacist 12/09/21 Mitra Kendall, [facility] Lead Claim Taker Primary Care - CC 01/26/2210/28 Lindsay Carey OD [address] [facility] [place] [address] Ophthalmology 01/29/22 Ravi Brownlee MD [address] [place] [address] 276 [place], [place] 520225 Assigned Pulmonology Provider 02/06/22 09/03/23 Arabella Fishman MA Financial Resource Worker 02/22/22 02/23/22 Richard Kam MD [address] [place] [address] Assigned Musculoskeletal Provider 08/14/22 Marisol Patel, [facility] [address] [place] [address] Pharmacist Pharmacist 11/22/22 01/09/23 [place] [address] BC PENA, [address] [address] Assigned Neuroscience Provider 01/01/23 Rosemarie Mcdowell, RN Boring Mill Operator For Metal Diabetes Education 03/17/23 Ravi Brownlee MD [address] [place] [address] 952995 Assigned Heart and Vascular Provider 09/04/23 01/03/24 Mitra Kendall, [facility] Lead Claim Taker Primary Care - CC 12/12/23 Lizet Mann PA-C [address] [place] [address] 004895 Assigned Cancer Care Provider 01/04/24 Ravi Brownlee MD [address] [place] [address] Assigned Pulmonology Provider 01/04/24 Nav Hughes MD [address] [facility] [address] [place] [address] Assigned Heart and Vascular Provider 01/04/24 Manuel Ahn OD [address] [facility] [place] [address] Information Technology Analyst 01/05/24 Arabella Fishman MA Financial Resource Worker 01/06/24 Thalia Charles [facility] Pharmacist Pharmacy 01/26/24 documented as of this encounter
--- OUTSIDE RECORDS SUMMARY | 2024-01-31 20:14 | XMS_ITS | Encounter Summary ---
Author Organization [place] Address [address] [place] [address] Care Team Providers Care Instrumental Teacher Name Role Phone Va Glez MD Primary Care Provider Va Glez MD Unavailable Keryr Bernal RN Unavailable [phone] Ravi Barillas DPM Unavailable [phone] Christy CampuzanoC Unavailable [phone] Hans Cannon MD Unavailable [phone] Mitra Kendall WEB SOFTWARE ENGINEER Unavailable [phone] Faith Pool CHW Unavailable [phone] Burt Jovel MD Unavailable [phone] Burt Jovel MD Unavailable [phone] Estella Hassan [facility] Unavailable [phone] Sheila Matias Unavailable Unavailable Reji Chavez MD Unavailable Josh Cordero MD, Madhuri Unavailable [phone] Josh Cordero MD, Madhuri Unavailable [phone] Kelsi Hassan MD Unavailable [phone] John Webb MD Unavailable [phone] John Webb MD Unavailable Estella Hassan [facility] Unavailable Nav Hughes MD Unavailable [phone] Cassandra Mendoza MD Unavailable Estella Hassan [facility] Unavailable [phone] Mitra Kendall WEB SOFTWARE ENGINEER Unavailable Lindsay Carey OD Unavailable Ravi Brownlee MD Unavailable rAabella Fishman MA Unavailable [phone] Richard Kam MD Unavailable Marisol Patel [facility] Unavailable [phone] Gaby Vila DO Unavailable Rosemarie Mcdowell RN Unavailable [phone] Ravi Brownlee MD Unavailable Mitra Kendall WEB SOFTWARE ENGINEER Unavailable Lizet Mann PA-C Unavailable Ravi Brownlee MD Unavailable Nav Hughes MD Unavailable [phone] Manuel Ahn OD Unavailable [phone] Arabella Fishman MA Unavailable [phone] Thalia Charles [facility] Unavailable Unavailable Encounter Details Date Type Department Care Team (Late st Contact Info) Description 06/04/[address] [facility] [address] [place] [address] [place] [address] [place] [address] Social History Tobacco Use Types [...] Answer Date Recorded PHQ-2 Score 1 02/12/2019 [facility] [place] of Occupat ional Health - Occupational Stress [...] on file Legal 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 CARGO SERVICES COORDINATOR Gender Identity Not on file Sexual Orientation Not on file Occupation Industry Job Start Date Job End Date Not on file Not on file Not on file Not on file COVID-19 Exposure Response Date Recorded In the last month, have you been in contact with someone who was confirmed or suspected to have Coronavirus / COVID-19? Unable to assess 06/05/2019 7:46 AM CDT documented as of this encounter Miscellaneous Notes * Telephone Encounter - Janie Martino MA - 06/04/2019 1:10 PM CDT Scheduled phone visit Janie Martino [facility] * Telephone Encounter - Va Glez MD - 06/04/2019 12:38 PM CDT Phone visit tomorrow please. * Telephone Encounter - Kerry Bernal RN - 06/04/2019 8:[address] 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 Kerry Bernal, Registered Nurse [facility] * Telephone Encounter - Mary Ann Carey - 06/04/2019 8:29 AM CDT General Call: Who is calling: Patient Reason for Call: Requesting to speak with RN states it's COVID 19/work related, pt wouldn't give any other details. What are your questions or concerns: N/A Date of last appointment with provider: 03/12/19 Okay to leave a detailed message:No at Home number on file [phone] (home) Mary Ann Carey-Patient Rep documented in this encounter Plan of Treatment Upcoming Encounters Date Type Department Care Team (Late st Contact Info) Description 02/01/2024 3:00 PM CARGO SERVICES COORDINATOR Office Visit [facility] [address] [place] [phone] Manuel Ahn, [address] [place] [address] 02/02/2024 1:30 PM CARGO SERVICES COORDINATOR Therapy Visit [facility] [address] [facility] 300 [place] [phone] Alicja Roldan, OT 909 [place], [place] [address] 02/05/2024 8:00 PM CARGO SERVICES COORDINATOR Therapy Visit [facility] [address] [place] [address] 103 [place] [phone] 02/13/2024 4:30 PM CARGO SERVICES COORDINATOR Oncology Visit [facility] 909 [place] [phone] Marian Agustin, IN SCHOOL SUSPENSION AIDE SUPERVISOR [employer]INGENTS [address] [place] [address] [facility] 207 [place], [place] [address] 03/01/2024 7:00 AM CARGO SERVICES COORDINATOR Office Visit [facility] [address] [place] [phone] Estella Hassan, [facility] 3033 [place] [address] 03/23/2024 2:00 PM CARGO SERVICES COORDINATOR Office [facility] [address] [place] [address] [place] [address] Lizet Mann PA-C 717 [place] [address] 03/29/2024 3:30 PM CARGO SERVICES COORDINATOR Office Visit [facility] 2945 [facility] 200 [place] [address] Hakeem Chacko MBBS 2945 [place] [address] 05/03/2024 3:00 PM CARGO SERVICES COORDINATOR Office [facility] [address] [place] [phone] Gaurav Valenzuela, IN SCHOOL SUSPENSION AIDE [address] [address] 05/22/2024 10:30 AM CDT Office Visit [address] [phone] Estella Hassan, [facility] 30[address] [place] [address] 05/22/2024 11:30 AM CDT Office Visit [address] [address] Va Glez MD [address] [place] [address] [phone] documented as of this encounter Visit Diagnoses Not on filedocumented in this encounter Additional Health Concerns Infection Onset Date Last Indicated Resolved Time Rule Out COVID-19 04/07/2020 04/07/2020 04/08/2020 7:51 PM CARGO SERVICES COORDINATOR Rule Out COVID-19 04/21/2020 04/21/2020 04/22/2020 5:44 PM CARGO SERVICES COORDINATOR Rule Out COVID-19 06/22/2021 06/22/2021 06/23/2021 8:58 PM CDT Rule Out COVID-19 01/22/2022 01/22/2022 01/24/2022 1:05 PM CARGO SERVICES COORDINATOR Rule Out COVID-19 01/25/2022 01/25/2022 01/25/2022 5:21 AM CARGO SERVICES COORDINATOR Influenza 01/25/2022 01/25/2022 02/01/2022 11:4 1 PM CARGO SERVICES COORDINATOR Rule Out COVID-19 07/29/2022 07/29/2022 07/31/2022 11:17 AM CDT Rule Out COVID-19 03/23/2023 03/23/2023 03/23/2023 6:30 PM CARGO SERVICES COORDINATOR COVID-19 03/23/2023 03/23/2023 04/13/2023 11:4 0 PM CARGO SERVICES COORDINATOR Rule Out COVID-19 06/05/2023 06/05/2023 06/05/2023 5:53 PM CDT Rule Out COVID-19 11/06/2023 11/06/2023 11/06/2023 11:05 PM CDT Rule Out COVID-19 11/20/2023 11/20/2023 11/20/2023 6:43 PM CDT Rule Out COVID-19 12/27/2023 12/27/2023 12/29/2023 1:37 PM CDT Assessment Noted Time PHQ-9 Depression Total Score: 5 02/13/20 12:25 PM CARGO SERVICES COORDINATOR documented as of this encounter Care Teams Instrumental Teacher Relationship Specialty [place] [address] [place] [address] PCP - General Family Practice 07/11/14 [place] [address] [place] [address] Assigned PCP 12/16/11 Kerry Bernal, INOCENCIO Personal Advocate & Liaison (PAL) 01/08/19 07/10/23 Ravi Barillas DPM [address] [facility] [address] [place] [address] Assigned Musculoskeletal Provider 03/23/20 10/30/21 Christy Campuzano PA-C [address] [place] [address] 107282 Referring Physician Family Medicine 04/22/20 Hans Cannon MD [address] [place] [address] [id number] Resident Pulmonary Disease 04/22/20 Mitra Kendall, [facility] Lead Friction Welding Machine Operator Primary Care - CC 01/08/1901/12 Faith Pool, [facility] Community Health Worker 04/30/2006/05 Burt Jovel MD Internal Medicine 05/08/20 12/13/23 Burt Jovel MD [facility] [place] [address] Assigned Heart and Vascular Provider 05/11/20 05/17/20 Estella Hassan, [facility] [address] [facility] [place] [address] Pharmacist Pharmacist 05/26/20 Sheila Matias Financial Resource Worker Primary Care - CC 06/02/20 06/02/20 Reij Chavez MD [address] [place] [id number] Assigned Heart and Vascular Provider 05/18/20 10/30/21 Elaina Moreno MD [address] [place] [address] Assigned Surgical Provider 05/18/20 11/19/22 Elaina Moreno MD [address] [place] [address] Cardiovascular & Thoracic Surgery 08/06/20 Kelsi Hassan MD [address] [place] [address] 284 [place] [address] Assigned Pulmonology Provider 06/28/21 02/05/22 John Webb MD [address] 224725 Cardiovascular Disease 08/25/21 John Webb MD [address] [address] Cardiovascular Disease 08/25/21 Estella Hassan, [facility] [address] [place] [address] Assigned MTM Pharmacist 09/05/21 Nav Hughes MD [address] [place] [address] Assigned Heart and Vascular Provider 10/31/21 09/03/23 Cassandra Mendoza MD ORTHOPAEDIC SURGERY [address] [address] Assigned Musculoskeletal Provider 10/31/21 08/13/22 Estella Hassan, [facility] [address] [place] [address] Assigned MTM Pharmacist 12/09/21 Mitra Kendall, [facility] Lead Friction Welding Machine Operator Primary Care - CC 01/26/2210/28 Lindsay Carey OD [address] [facility] [address] Ophthalmology 01/29/22 Ravi Brownlee MD [address] [place] [address] 276 [place] [address] Assigned Pulmonology Provider 02/06/22 09/03/23 Arabella Fishman MA Financial Resource Worker 02/22/22 02/23/22 Richard Kam MD [address] [place] [address] Assigned Musculoskeletal Provider 08/14/22 Marisol Patel, [facility] [address] [place] [address] Pharmacist Pharmacist 11/22/22 01/09/23 [place] [address] BC PE[place], [address] [address] Assigned Neuroscience Provider 01/01/23 Rosemarie Mcdowell, RN Insect Control Inspector Diabetes Education 03/17/23 Rvai Brownlee MD [address] [place] [address] 478105 Assigned Heart and Vascular Provider 09/04/23 01/03/24 Mitra Kendall, [facility] Lead Friction Welding Machine Operator Primary Care - CC 12/12/23 Lizet Mann PA-C 7[address] [place], [place] 693745 Assigned Cancer Care Provider 01/04/24 Ravi Brownlee MD [address] [place] [address] Assigned Pulmonology Provider 01/04/24 Nav Hughes MD [address] [facility] [place] MD 225305 Assigned Heart and Vascular Provider 01/04/24 Manuel Ahn OD [address] [facility] [place] [address] Workforce Manager 01/05/24 Arabella Fishman MA Financial Resource Worker 01/06/24 Thalia Charles [facility] Pharmacist Pharmacy 01/26/24 documented as of this encounter
--- OUTSIDE RECORDS SUMMARY | 2024-01-31 20:15 | XMS_ITS ---
Author Organization [facility] Address [address] [place] [address] Care Team Providers Care Roving Or Yarn Color Checker Name Role Phone aV Glez MD Primary Care Provider [phone] Va Glez MD Unavailable Christy CampuzanoC Unavailable [phone] Hans Cannon MD Unavailable Estella Hassan [facility] Unavailable Josh Cordero MD, Madhuri Unavailable [phone] John Webb MD Unavailable [phone] John Webb MD Unavailable Estella Hassan [facility] Unavailable [phone] Lindsay Carey OD Unavailable Richard Kam MD Unavailable Gaby Vila DO Unavailable Rosemarie Mcdowell RN Unavailable Mitra Kendall COIL FINISHER Unavailable Lizet MannC Unavailable Ravi Brownlee MD Unavailable Nav Hughes MD Unavailable [phone] Manuel Ahn OD Unavailable Arabella Fishman MA Unavailable [phone] Thalia Charles [facility] Unavailable Unavailable Financial Resource Worker Status:Enrolled (Active) Start date:01/06/2024 Enrollment date:01/16/2024 Case Team Name Relationship Phone Arabella Fishman MA Financial Resource Worker(Resp onsible Staff) [phone]holder Registered Nurse Continued Care and Services Coordination
--- OUTSIDE RECORDS SUMMARY | 2024-01-31 20:15 | XMS_ITS | Encounter Summary ---
Author Organization [place] Address [address] [place] [address] Care Team Providers Care Registered Nurse Step Down Name Role Phone Va Glez MD Primary Care Provider Va Glez MD Unavailable Va Glez MD Unavailable Kerry Bernal RN Unavailable [phone] Ravi Barillas DPM Unavailable [phone] Christy Campuzano-C Unavailable [phone] Hans Cannon MD Unavailable [phone] Mitra Kendall PARCEL POST TRUCK DRIVER Unavailable [phone] Faith Pool CHW Unavailable [phone] Burt Jovel MD Unavailable [phone] Burt Jovel MD Unavailable [phone] Estella Hassan [facility] Unavailable [phone] Sheila Matias Unavailable Unavailable Reji Chavez MD Unavailable [phone] Josh Cordero MD, Madhuri Unavailable [phone] Josh Cordero MD, Madhuri Unavailable [phone] Kelsi Hassan MD Unavailable [phone] John Webb MD Unavailable John Webb MD Unavailable Estella Hassan [facility] Unavailable Nav Hughes MD Unavailable [phone] Cassandra Mendoza MD Unavailable Estella Hassan [facility] Unavailable Mitra Kendall PARCEL POST TRUCK DRIVER Unavailable Lindsay Carey OD Unavailable Ravi Brownlee MD Unavailable Arabella Fishman MA Unavailable [phone] Richard Kam MD Unavailable Marisol Patel H Unavailable Gaby Vila DO Unavailable [phone] Rosemarie Mcdowell RN Unavailable Ravi Brownlee MD Unavailable [phone] Mitra Kendall PARCEL POST TRUCK DRIVER Unavailable Lizet Mann PA-C Unavailable Ravi Brownlee MD Unavailable Nav Hughes MD Unavailable [phone] Manuel Ahn OD Unavailable Arabella Fishman MA Unavailable [phone] Thalia Charles [facility] Unavailable Unavailable Reason for Visit * Reason Onset Date Comments Health Maintenance 12/17/2015 FIT TEST REQU EST Outreach 12/19/2015 INFO/UPDATE Encounter Details Date Type Department Care Team (Late st Contact Info) Description 12/17/2015 Telephone [facility] [address] [place] [address] [place] [address] [place] [address] Health Maintenance (FIT TEST REQUEST); Outreach (INFO/UPDATE) Social History Tobacco Use Types Packs/Day Years Used Date Smoking Tobacco: Former Cigarettes Q uit: 12/03/1983 Smokeless Tobacco: Never Alcohol Use Standard Drinks/Week Comments Yes 0 (1 standard drink = 0.6 oz pur e alcohol) moderate Sex and Gender Information Value Date Recorded Sex Assigned at Not on file Legal 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 CUSTOM FRAME ASSEMBLER Gender Identity Not on file Sexual Orientation Not on file documented as of this encounter Miscellaneous Notes * Telephone Encounter - Emmie Ansari - 12/19/2015 9:08 AM CDT 12/19/2015 Contacted patient to inform him that [facility] no longer sends out FIT and that he would need to pick one up at the clinic as well as schedule a physical with PCP. Unable to leave a message since VM was full. Outreach Pig Iron Loader, Rosalinda Ansari * Telephone Encounter - Emmie Ansari - 12/17/2015 10:48 AM CDT 12/17/2015 Called the patient for Health Maintenance, agreed to FIT test screening. Order placed for provider to sign. Please send FIT test to patient's home address. Thanks! Outreach Pig Iron LoaderRosalinda documented in this encounter Plan of Treatment Upcoming Encounters Date Type Department Care Team (Late st Contact Info) Description 02/01/2024 3:00 PM CUSTOM FRAME ASSEMBLER Office Visit [facility] [address] [place] [address] Manuel Ahn, ARA 1641 [place] [address] 02/02/2024 1:30 PM CUSTOM FRAME ASSEMBLER Therapy Visit [facility] [address] [facility] [address] [place] [address] Roldan Alicja, OT 909 [place] [address] 02/05/2024 8:00 PM CUSTOM FRAME ASSEMBLER Therapy Visit [facility] 6363 [facility] 103 [place] [phone] 02/13/2024 4:30 PM CUSTOM FRAME ASSEMBLER Oncology Visit [facility] 909 [place] [phone] Marian Agustin APRN [facility] 420 [facility] 207 [place], [place] [address] 03/01/2024 7:00 AM CUSTOM FRAME ASSEMBLER Office Visit [facility] [address] [place] [phone] Estella Hassan, [facility] 3033 [place] [address] 03/23/2024 2:00 PM CUSTOM FRAME ASSEMBLER Office [facility] [address] [place] [phone] Lizet Mann PA-C 717 [place] [address] 03/29/2024 3:30 PM CUSTOM FRAME ASSEMBLER Office Visit [facility] 2945 [facility] 200 [place] [phone] Hakeem Chacko MBBS [address] [place] [address] 05/03/2024 3:00 PM CUSTOM FRAME ASSEMBLER Office Visit [facility] [address] [place] [phone] Gaurav Valenzuela, DIRECTOR OF CAMPUS RECREATION [facility] [address] [place] [address] [place] [address] 05/22/2024 10:30 AM CDT Office Visit [facility] [address] [place] [phone] Estella Hassan, [facility] [address] [place] [address] 05/22/2024 11:30 AM CDT Office Visit [facility] [address] [place] [phone] [place] [address] [place] [address] documented as of this encounter Visit Diagnoses Not on filedocumented in this encounter Additional Health Concerns Infection Onset Date Last Indicated Resolved Time Rule Out COVID-19 04/07/2020 04/07/2020 04/08/2020 7:51 PM CUSTOM FRAME ASSEMBLER Rule Out COVID-19 04/21/2020 04/21/2020 04/22/2020 5:44 PM CUSTOM FRAME ASSEMBLER Rule Out COVID-19 06/22/2021 06/22/2021 06/23/2021 8:58 PM CDT Rule Out COVID-19 01/22/2022 01/22/2022 01/24/2022 1:05 PM CUSTOM FRAME ASSEMBLER Rule Out COVID-19 01/25/2022 01/25/2022 01/25/2022 5:21 AM CUSTOM FRAME ASSEMBLER Influenza 01/25/2022 01/25/2022 02/01/2022 11:4 1 PM CUSTOM FRAME ASSEMBLER Rule Out COVID-19 07/29/2022 07/29/2022 07/31/2022 11:17 AM CDT Rule Out COVID-19 03/23/2023 03/23/2023 03/23/2023 6:30 PM CUSTOM FRAME ASSEMBLER COVID-19 03/23/2023 03/23/2023 04/13/2023 11:4 0 PM CUSTOM FRAME ASSEMBLER Rule Out COVID-19 06/05/2023 06/05/2023 06/05/2023 5:53 PM CDT Rule Out COVID-19 11/06/2023 11/06/2023 11/06/2023 11:05 PM CDT Rule Out COVID-19 11/20/2023 11/20/2023 11/20/2023 6:43 PM CDT Rule Out COVID-19 12/27/2023 12/27/2023 12/29/2023 1:37 PM CDT Assessment Noted Time PHQ-9 Depression Total Score: 4 01/30/20 15 7:29 AM CUSTOM FRAME ASSEMBLER documented as of this encounter Care Teams Registered Nurse Step Down Relationship Specialty [place] [address] [place] [address] PCP - General Family Practice 07/11/14 [place] [address] [place] [address] PCP - Assigned PCP 12/19/11 05/16/18 [place] [address] [place] [address] Assigned PCP 12/16/11 Kerry Bernal RN Personal Advocate & Liaison (PAL) 01/08/19 07/10/23 Ravi Barillas DPM [address] [facility] [address] [place] [address] Assigned Musculoskeletal Provider 03/23/20 10/30/21 Christy Campuzano PA-C [address] [place] [address] Referring Physician Family Medicine 04/22/20 Hans Cannon MD [address] [place] [address] Resident Pulmonary Disease 04/22/20 EnochMitra, PARCEL POST TRUCK DRIVER Lead Sharepoint Developer Primary Care - CC 01/08/1901/12 Faith Pool, [facility] Community Health Worker 04/30/2006/05 Burt Jovel MD Internal Medicine 05/08/20 12/13/23 Burt Jovel MD [address] [place] [address] Assigned Heart and Vascular Provider 05/11/20 05/17/20 Estella Hassan, [facility] [address] [place], [place] [address] Pharmacist Pharmacist 05/26/20 Sheila Matias Financial Resource Worker Primary Care - CC 06/02/20 06/02/20 Reji Chavez MD [address] [place] [phone] Assigned Heart and Vascular Provider 05/18/20 10/30/21 Elaina Moreno MD [address] [place] [address] 781325 Assigned Surgical Provider 05/18/20 11/19/22 Elaina Moreno MD [address] [place] [address] Cardiovascular & Thoracic Surgery 08/06/20 Kelsi Hassan MD [address] [place] [address] 284 [place] [address] Assigned Pulmonology Provider 06/28/21 02/05/22 John Webb MD [address] [address] Cardiovascular Disease 08/25/21 John Webb MD [address] [address] Cardiovascular Disease 08/25/21 Estella Hassan, [facility] [address] [place] [address] Assigned MTM Pharmacist 09/05/21 Nav uHghes MD [address] [place] [address] Assigned Heart and Vascular Provider 10/31/21 09/03/23 Cassandra Mendoza MD ORTHOPAEDIC SURGERY [address] [place] [address] Assigned Musculoskeletal Provider 10/31/21 08/13/22 Estella Hassan, [facility] [place] [address] Assigned MTM Pharmacist 12/09/21 Mitra Kendall, [facility] Lead Sharepoint Developer Primary Care - CC 01/26/2210/28 Lindsay Carey OD [address] [facility] [address] Ophthalmology 01/29/22 Ravi Brownlee MD [address] [place] [address] Assigned Pulmonology Provider 02/06/22 09/03/23 Arabella Fishman MA Financial Resource Worker 02/22/22 02/23/22 Richard Kam MD [address] [place] [address] Assigned Musculoskeletal Provider 08/14/22 [facility] [place] [address] Pharmacist Pharmacist 11/22/22 01/09/23 [place] [address] [place] [address] [address] Assigned Neuroscience Provider 01/01/23 Rosemarie Mcdowell RN Hand Filer Balance Wheel Diabetes Education 03/17/23 Ravi Brownlee MD [address] [place] [address] Assigned Heart and Vascular Provider 09/04/23 01/03/24 Mitra Kendall, PARCEL POST TRUCK DRIVER Lead Sharepoint Developer Primary Care - CC 12/12/23 Lizet Mann PA-C 7[address] [place] [address] Assigned Cancer Care Provider 01/04/24 Ravi Brownlee MD 420 [facility] 276 [place] [address] Assigned Pulmonology Provider 01/04/24 Nav Hughes MD 6405 [facility] [place] [address] Assigned Heart and Vascular Provider 01/04/24 Manuel Ahn OD 6341 [place] [address] Carton Making Machine Operator 01/05/24 Arabella Fishman MA Financial Resource Worker 01/06/24 Thalia Charles [facility] Pharmacist Pharmacy 01/26/24 documented as of this encounter
--- OUTSIDE RECORDS SUMMARY | 2024-01-31 20:15 | XMS_ITS | Clinical Summary ---
Author Organization [facility] Address [place], [place] [address] Care Team Providers Care Integrity Consultant Name Role Phone Pcp, No Primary Care Provider Unavailabl e Allergies No known active allergies Medications Medication Sig Dispensed Refills Start Date End Date Status fluticasone-salmetero l (ADVAIR DISKUS) 250-50 mcg/Dose diskus inhaler Inhale 1 Puff by mouth every 12 hours. 1 Inhaler 0 01/14/2011 Active predniSONE (DELTASONE) 20 mg tablet 2 daily for 3 days then 1 daily for 5 days 11 tablet 0 08/22/2012 Active albuterol HFA (PROAIR HFA) 90 mcg/actuation inhaler Inhale 2 Puffs by mouth 4 times daily if needed. 0 03/10/2013 Active Active Problems No known active problems Immunizations Name Administration Dates Next Due Td (Age >=7 Years) 11/23/1999 Social History Tobacco Use Types Packs/Day Years Used Date Smoking Tobacco: Never Smokeless Tobacco: Never Alcohol Use Standard Drinks/Week Comments Not Asked 0 (1 standard drink = 0.6 oz pur e alcohol) Sex and Gender Information Value Date Recorded Sex Assigned at Not on file Gender Identity Not on file Sexual Orientation Not on file Obstetrics History Last Filed Vital Signs Vital Sign Reading Time Taken Comments Blood Pressure 126/82 03/10/2013 11:27 AM EMAIL MARKETING MANAGER Pulse 77 03/10/2013 11:27 AM EMAIL MARKETING MANAGER Temperature 36.8 C (98.2 F) 03/10/2013 11:27 AM EMAIL MARKETING MANAGER Respiratory Rate 14 03/10/2013 11:2 7 AM EMAIL MARKETING MANAGER Oxygen Saturation 96% 03/10/2013 11: 27 AM EMAIL MARKETING MANAGER Inhaled Oxygen Concentration - - Weight 119.6 kg (263 lb 9.6 oz) 08/22/2012 3:55 PM CDT Height - - Body Mass Index - - Plan of Treatment Health Maintenance Due Date Last Done Comments Tdap 1969 Depression screening for age 12+ 1970 HIV for age 15-65 1973 BMI (ht and wt on same day) for age 18+ 1976 Hepatitis C screening for age 18-79 1976 Colonoscopy through age 75 06/15/2003 Lipids for age 45-75 06/15/2003 Zoster (shingles) series for age 50+ (1 of 2) 06/15/19 09 Tetanus booster 11/22/2009 11/23/1999 Pneumococcal series for age 65+ (1 of 1 - PCV) 024 COVID-19 vaccine series (2023- season) 4 Influenza for age 65+ 11/13/2023 Care Teams Integrity Consultant Relationship Specialty Start Date End Date Pcp, No . PCP - General 12/16/10
--- OUTSIDE RECORDS SUMMARY | 2024-01-31 20:15 | XMS_ITS ---
Author Organization [facility] Address [address] [place] [id number] Care Team Providers Care Complex Case Manager Name Role Phone Va Glez MD Primary Care Provider Va Glez MD Unavailable Christy CampuzanoC Unavailable Hans Cannon MD Unavailable [phone] Estella Hassan [facility] Unavailable Josh Cordero MD, Madhuri Unavailable [phone] John Webb MD Unavailable [phone] John Webb MD Unavailable Estella Hassan [facility] Unavailable Lindsay Carey OD Unavailable Richard Kam MD Unavailable Gaby Vila DO Unavailable Rosemarie Mcdowell RN Unavailable Mitra Kendall CIRCUIT MANAGER Unavailable Lizet MannC Unavailable Ravi Brownlee MD Unavailable Nav Hughes MD Unavailable [phone] Manuel Ahn Unavailable Arabella Fishman MA Unavailable [phone] Thalia Charles [facility] Unavailable Unavailable Diabetes Self-Management Education Status:Enrolled (Active) Start date:03/17/2023 Enrollment date:04/28/2023 Current support & services provided:Type 2 Diabetes Management, Individual Education Case Team Name Relationship Phone Rosemarie Mcdowell RNfactory engineer(Responsible Staff) [phone] Continued Care and Services Coordination
[2024-01-31 20:29] LABS: Chloride* 100 mmol/L (96-114); Sodium* 135 mmol/L (135-149)
[2024-01-31 20:30] LABS: Potassium* 3.8 mmol/L (3.6-5.1)
[2024-01-31 20:32] LABS: Anion Gap 7 mEq/L (7-15); Blood Urea Nitrogen* 15 mg/dL (7-30); Carbon Dioxide* 28 mmol/L (20-32); Creatinine* 0.6 mg/dL (0.5-1.5); Est. Creatinine Clearance* 76.04; Estimated Glomerular Filt Rate 107 ml/min
[2024-01-31 20:33] LABS: Glucose* 141 mg/dL (60-115)
[2024-01-31 20:59] LABS: NT Pro B Type NatriureticPept* < 20 pg/mL
[2024-01-31 21:00] LABS: Slide Review Reflex No
[2024-01-31 21:11] VITALS: BP 126/78; PULSE 74; RESP 16; TEMP 36.8
== END 2024-01-31 21:12 | disposition home or self-care (01) ==
PROVIDERS: Emergency Provider Emergency Medicine
DX: F41.9 Anxiety disorder, unspecified (principal); R20.2 Paresthesia of skin
CPT/HCPCS: 36415; 70450; 70496; 70498; 71046; 80048; 83880; 84484; 85025; 99284; Q9967

== ENCOUNTER 2024-12-05 23:36 | Emergency (ER) | payer MEDICARE, SELFPAY ==
--- OUTSIDE RECORDS SUMMARY | 2024-10-21 13:58 | XMS_ITS | Encounter Summary ---
Author Organization [facility] Address [address] [place] [address] Care Team Providers Care Accessories Repairer Name Role Phone Va Glez MD Primary Care Provider Va Glez MD Unavailable Christy CampuzanoC Unavailable [phone] Hans Cannon MD Unavailable Estella Hassan [facility] Unavailable Josh Cordero MD, Madhuri Unavailable [phone] John Webb MD Unavailable John Webb MD Unavailable Estella Hassan [facility] Unavailable Lnidsay Carey OD Unavailable Richard Kam MD Unavailable Gaby Vila DO Unavailable Rosemarie Mcdowell RN Unavailable Mitra Kendall RADIO STATION AUDIO ENGINEER Unavailable [phone] Lizet Mann PA-C Unavailable Ravi Brownlee MD Unavailable Manuel Ahn OD Unavailable [phone] Thalia Charles [facility] Unavailable Gaurav Valenzuela VP REVENUE CYCLE HE[employer] INFORMATICS INSTRUCTOR Unavailable Debbie Mann MD Unavailable [phone] Hakeem Chacko MB Unavailable Debbie Mann MD Unavailable Timothy Tejada MD Unavailable [phone] Timothy Tejada MD Unavailable [phone] Elsie Roberts Jennifer VP REVENUE CY[employer] HE[employer] INFORMATICS INSTRUCTOR Unavailable + Reason for Visit * Reason Comments Nausea, Vomiting, & Diarrhea Encounter Details Date Type Department Care Team (Late st Contact Info) Description 10/21/2024 1:58 PM CDT - 10/21/2024 7:34 PM CDT Emergency [facility] Emergency Dept [address] [place] [address] Shira Valdez MD [facility] [address] [place], [place] [id number] Cellulitis of left lower leg (Primary Dx); Biliary colic Discharge Disposition: Home or Self Care Social [...] Friends and Fami ly Not on file 09/27/2024 How often do you get together with friends or re latives? Once a week 09/27/2024 Attends Cheondoism Services Not on file 09/27 Active Member of Clubs or Organizations Not on f ile 09/27/2024 Attends Club or Organization Meetings Not on henea e 09/27/2024 Marital Status Not on file 09/27/2024 AUDIT-C Answer Date Recorded Q1: How often [...] PHQ-2 Answer Date Recorded PHQ-2 Score 2 09/27/2024 [facility] - Occupational Stress Questionnaire Answer Date Recorded Do you feel stress - tense, restless, nervous, or anxious, or unable to sleep at night because your mind is troubled all the time - these days? Not at all 09/27/2024 Exercise Vital Sign Answer Date Recorde d On average, how many days pe r week do you engage in moderate to strenuous exercise (like a brisk walk)? 0 days 09/27/2024 On average, how many minutes do you engage in exercise at this level? 0 min 09/27/2024 Adolescent Education Answer Date Record ed Getting School Help Needed Not on file 12/07 Food Insecurity Answer Date Recorded Within the past 12 months, d id you worry that your food would run out before you got money to buy more? No 09/27/2024 Within the past 12 months, d id the food you bought just not last and you didn t have money to get more? No 09/27/2024 Housing Stability Answer Date Recorded Do you have housing? (Denita shaffer is defined as stable permanent housing and does not include staying outside in a car, in a tent, in an abandoned building, in an overnight [place] [facility] [place], 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.) Yes 09/27/2024 Are you worried about losing your housing? No 09/27/2024 Financial Resource Strain Answer Date R ecorded Within the past 12 months, h ave you or your family members you live with been unable to get utilities (heat, electricity) when it was really needed? No 09/27/2024 Transportation Needs Answer Date Record ed Within the past 12 months, h as lack of transportation kept you from medical appointments, getting your medicines, non-medical meetings or appointments, work, or from getting things that you need? No 09/27/2024 Interpersonal Safety Answer Date Record ed Do you feel physically and e motionally safe where you currently live? Yes 08/15/2024 Within the past 12 months, h ave you been hit, slapped, kicked or otherwise physically hurt by someone? No 08/15/2024 Within the past 12 months, h ave you been humiliated or emotionally abused in other ways by your partner or ex-partner? 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 Gender Identity Not on file Sexual Orientation Not on file Occupation Industry Job Start Date Job End Date Not on file Not on file Not on file Not on file documented as of this encounter Last Filed Vital Signs Vital Sign Reading Time Taken Comments Blood Pressure 125/98 10/21/2024 7:20 PM CDT Pulse 87 10/21/2024 1:55 PM CDT Temperature 36.9 C (98.4 F) 10/21/2024 1:55 PM CDT Respiratory Rate 16 10/21/2024 1:55 PM CDT Oxygen Saturation 95% 10/21/2024 7:20 PM CDT Inhaled Oxygen Concentration - - Weight 130.1 kg (286 lb 13.1 oz) 10/21/2024 1:55 PM CDT Height 172.7 cm (5' 8) 10/21/2024 1:55 PM CDT Body Mass Index 43.61 10/21/2024 1:55 PM CDT documented in this encounter Discharge Instructions * Discharge Instructions* Shira Valdez MD - 10/21/2024 6:58 PM CDT Discharge Instructions Biliary Colic You have been seen today for biliary colic. Biliary colic is the pain that happens when gallstones block the normal flow of bile from the gallbladder. It usually is a steady or crampy pain in the upper abdomen (belly), most often under the right side of the rib cage where the gallbladder is. Sometimes you get pain from the gallbladder in your back or shoulder. It is common to have nausea (sick tostomach) and vomiting (throwing up) with biliary colic. Bile is a liquid the body makes to help with digesting fat. It is made by the liver and stored in the gallbladder and released from the gall bladder when you eat fatty foods. Gallstones can form for a variety of reasons. Risk factors for gallstones include being female, having a family history of gallstones, being older, being or having been , having diabetes, having rapid weightloss, and others. Once gallstones form, surgeons usually tell you to have your gallbladder removed. There is medicinethat can dissolve gallstones, but it can be unpleasant to take, and gallstones tend to come back when you quit taking the medicine. Your regular provider can help decide on the right treatment for you, and may refer you to a surgeon to discuss whether surgery is right in your case. Complications of gallstones include infection, jaundice, inflammation of the pancreas, and rupture of the gallbladder. One of these complications will happen to about one out of every four patients with gallstones over the next 10-20 years if they are not treated. Generally, every Emergency Department visit should have a follow-up clinic visit with either a primary or a specialty clinic/provider. Please follow-up as instructed by your emergency provider today. Return to the Emergency Department if you develop: Fever greater than 100.5??F. Persistent nausea and vomiting. Pain that will not go away with the medicines you were given here. Yellow skin or eye color (jaundice). Other new concerning symptoms. What can I do to help myself? Eat regular meals at least three times a day, to make the gallbladder empty before it gets too full. Avoid fried or fatty foods. Drink plenty of clear fluids. Take [id number] or prescribed pain medications as recommended by your provider. If you were given a prescription for [...] if there is anything that worries you. Discharge Instructions Cellulitis Cellulitis is an infection of the skin that occurs when bacteria enter the skin. Symptoms are generally redness, swelling, warmth and pain. Your infection appeared to be appropriate to treat at home with antibiotics. However, sometimes your infection may be worse than it seemed at first, or may worsen with time. If you have new or worse symptoms, you may need to be seen again in the Emergency Department or by your primary provider. Generally, every Emergency Department visit should have a follow-up clinic visit with either a primary or a specialty clinic/provider. Please follow-up as instructed by your emergency provider today. Return to the Emergency Department if: The redness, pain, or swelling gets a lot worse. If the red area was marked, return if it is red significantly beyond the marked area. You are unable to get your antibiotics, or are vomiting (throwing up) these pills, or you cannot take them. You are feeling more ill, weak or lightheaded. You start to run a new fever (temperature >101 F). Anything else about the infection worries or concerns you. Treatment: Start your antibiotics right away, and take them as prescribed. Be sure to finish the whole prescription, even if you are better. Apply a heating pad, warm packs, or warm water soaks to the infected area for 15 minutes at a time,at least 3 times a day. Do not use a heating pad on your feet or legs if you have diabetes. Do not sleep with a heating pad on, since this can cause delarosa or skin injury. Rest your injured area for at least 1-2 days. After that you may start using your extremity again as long as there is not too much pain. Raise the injured area above the level of your heart as much as possible in the first 1-2 days. Tylenol?? (acetaminophen), Motrin?? (ibuprofen), or Advil?? (ibuprofen) may help may help reduce pain and fever and may help you feel more comfortable. Be sure to read and follow the package directions, and ask your provider if you have questions. If you were given a prescription for [...] 6 hours as needed for mild pain. atorvastatin (LIPITOR) 40 MG tabletIndications: Type 2 diabetes mellitus without complication, without long-term current use of insulin (H) Take 1 tablet (40 mg) by mouth every evening. 90 tablet 3 10/18/2024 diclofenac (VOLTAREN) 1 % topical gel Apply 2 g topically 4 times daily as needed. glipiZIDE (GLUCOTROL XL) 10 MG 24 hr tabletIndications: Type 2 diabetes mellitus without complications (H) TAKE 2 TABLETS BY MOUTH EVERY DAY 180 tablet 1 09/28/2024 metFORMIN (GLUCOPHAGE XR) 500 MG 24 hr tablet Take 4 tablets (2,000 mg) by mouth daily (with dinner). 360 tablet 1 03/08/2024 pioglitazone (ACTOS) 15 MG tabletIndications: Type 2 diabetes mellitus with hyperglycemia, without long-term current use of insulin (H) Take 1 tablet (15 mg) by mouth daily. 90 tablet 1 06/28/2024 ondansetron (ZOFRAN ODT) 4 MG ODT tab Take 1 tablet (4 mg) by mouth every 8 hours as needed for nausea or vomiting. 10 tablet 10/21/2024 10/25/19 25 albuterol (PROAIR HFA/PROVENTIL HFA/VENTOLIN HFA) 108 (90 Base) MCG/ACT inhalerIndications :Exacerbation of asthma, unspecified asthma severity, unspecified whether persistent Inhale 2 puffs into the lungs every 6 hours as needed for shortness of breath, wheezing or cough. 54 g 3 09/28/2024 11/06/19 25 blood glucose monitoring (NO BRAND SPECIFIED) meter device kitIndications:Typ e 2 diabetes mellitus without complication, without long-term current use of insulin (H) Use to test blood sugar 2 times daily or as directed. 1 kit 03/29/2024 11/05/19 25 budesonide (PULMICORT) 0.5 MG/2ML neb solutionIndication s:Moderate persistent asthma without complication Take 2 mLs (0.5 mg) by nebulization 2 times daily. 120 mL 11 07/24/2024 11/05/19 25 cephALEXin (KEFLEX) 500 MG capsule Take 1 capsule (500 mg) by mouth 4 times daily for 10 days. 40 capsule 10/21/2024 11/02/19 25 DULoxetine (CYMBALTA) 30 MG capsule Take 30 mg by mouth daily. 09/05/2024 11/05/19 25 fluticasone (FLONASE) 50 MCG/ACT nasal sprayIndications:S easonal allergic rhinitis, unspecified trigger [place] 1 spray into both nostrils daily. 16 g 5 03/28/2024 11/05/19 25 gabapentin (NEURONTIN) 300 MG capsuleIndications :Anterolisthesis of cervical spine,Retrolisthes is,Cervical radiculopathy Take 2 capsules (600 mg) by mouth 2 times daily. 360 capsule 3 10/12/2024 11/16/19 25 ipratropium - albuterol 0.5 mg/2.5 mg, 3mg,/3 mL (DUONEB) 0.5-2.5 (3) MG/3ML neb solutionIndication s:SOB (shortness of breath),Moderate persistent asthma without complication INHALE 3 MLS VIA NEBULIZER 4 TIMES A DAY NEEDED 270 mL 1 09/20/2024 10/26/19 25 ondansetron (ZOFRAN) 4 MG tabletIndications: Nausea Take 1 tablet (4 mg) by mouth every 8 hours as needed for nausea. 30 tablet 10/12/2024 11/05/19 25 triamcinolone (KENALOG) 0.1 % external creamIndications:I tching of both hands Apply topically 2 times daily. 30 g 1 02/10/2024 11/05/19 25 documented as of this encounter Progress Notes * Shira Valdez MD - 10/21/2024 2:12 PM CDT Attached media from the original note were not included. documented in this encounter ED Notes * Laurence Guillory RN - 10/21/2024 7:33 PM CDT Pt discharged. Discharged instructions and papers given. Discharged ambulatory in stable condition.A&Ox4 * Shira Valdez MD - 10/21/2024 2:01 PM CDT Images from the original note were not included. Emergency Department Note History of Present Illness Chief Complaint Nausea, Vomiting, & Diarrhea HPI Peter Devi is a 64 year old male who presents with RUQ pain, poor appetite, nausea and diarrhea that began this morning. He reports his LUQ pain lasted approximately 4.5 hours and then resolved. Reports two episodes of diarrhea today. He thought his symptoms were from something he ate and washungry today but nothing seemed appetizing. The patient also reports shortness of breath and intermittent central chest pressure for approximately two days mostly in the right rib. Reports mild pain after eating. He reports scraping his bilateral shins 4 days ago and now has painful scabs, blistersand redness. He notes history of diabetic neuropathy. He Denies any urinary problems other than frequency. Patient denies vomiting, blood in stool, right-sided abdominal pain or history of GERD. He does not regularly check his blood pressure. 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 Independent Historian None Review of External Notes I reviewed UC visit note from earlier today. Past Medical History Medical History and Problem List Arthritis Depression Type 2 diabetes mellitus Anxiety Mediastinal cyst Thoracic aortic aneurysm without rupture GERD Diverticulosis Moderate persistent asthma Obesity Spondylolisthesis of cervical region Diabetic polyneuropathy Medications atorvastatin (LIPITOR) 40 MG tablet DULoxetine (CYMBALTA) 30 MG capsule gabapentin (NEURONTIN) 300 MG capsule glipiZIDE (GLUCOTROL XL) 10 MG 24 hr tablet metFORMIN (GLUCOPHAGE XR) 500 MG 24 hr tablet ondansetron (ZOFRAN) 4 MG tablet pioglitazone (ACTOS) 15 MG tablet Surgical History Past Surgical History: Procedure Laterality Date ??? DAVINCI EXCISE NODES THORACIC Right 07/23/2020 Procedure: ROBOT-ASSISTED mediastinal cyst excision; Surgeon: Elaina Moreno MD; Location: [facility] OR ??? TOE SURGERY age 16 Physical Exam Patient Vitals for the past 24 hrs: BP Temp Temp src Pulse Resp SpO2 Height Weight 10/21/24 1355 (!) 132/91 98.4 ??F (36.9 ??C) Temporal 87 16 96 % 1.727 m (5' 8) 130.1 kg (286 lb 13.1 oz) Physical Exam Gen: alert CV: RRR, Pulm: breath sounds equal, lungs clear Abd: Soft, nontender Back: no evidence of injury, no cva tenderness MSK: no deformity, moves all extremities Skin: Abrasion with surrounding redness to bilateral lower extremities Neuro: alert, appropriate conversation and interaction Diagnostics Lab Results Labs Ordered and Resulted from Time of ED Arrival to Time of ED Departure CBC WITH PLATELETS (LIMITED OCCURRENCES) - Abnormal Result Value WBC Count 6.1 RBC Count 4.45 Hemoglobin 12.8 (*) Hematocrit 37.5 (*) MCV 84 MCH 28.8 MCHC 34.1 RDW 13.6 Platelet Count 191 COMPREHENSIVE METABOLIC PANEL (LIMITED OCCURRENCES) - Abnormal Sodium 137 Potassium 4.1 Carbon Dioxide (CO2) 25 Anion Gap 10 Urea Nitrogen 14.6 Creatinine 0.67 GFR Estimate >90 Calcium 8.6 (*) Chloride 102 Glucose 171 (*) Alkaline Phosphatase 76 AST 16 ALT 24 Protein Total 6.0 (*) Albumin 3.7 Bilirubin Total 0.4 LIPASE - Normal Lipase 36 ROUTINE UA WITH MICROSCOPIC - Normal Color Urine Straw Appearance Urine Clear Glucose Urine Negative Bilirubin Urine Negative Ketones Urine Negative Specific [place] Urine 1.004 Blood Urine Negative pH Urine 5.5 Protein Albumin Urine Negative Urobilinogen Urine Normal Nitrite Urine Negative Leukocyte Esterase Urine Negative RBC Urine 1 WBC Urine 0 TROPONIN T, HIGH SENSITIVITY - Normal Troponin T, High Sensitivity 17 NT-PROBNP - Normal NT-proBNP <36 TROPONIN T, HIGH SENSITIVITY - Normal Troponin T, High Sensitivity 17 Imaging Chest XR, PA & LAT Final Result IMPRESSION: Negative chest. US Abdomen Limited Final Result IMPRESSION: 1. Cholelithiasis. Otherwise negative. EKG ECG taken at 1420, ECG read at 0658 Sinus rhythm with occasional premature ventricular complexes. Possible inferior infarct, age undetermined. Abnormal ECG. Rate 76 bpm. OK interval 146 ms. QRS duration 90 ms. QT/QTc 380/427 ms. P-R-T axes 74 -25 50. Independent Interpretation CXR: No pneumothorax or pleural effusion. ED Course Medications Administered Medications cephALEXin (KEFLEX) capsule 500 mg (has no administration in time range) alum & mag hydroxide-simethicone (MAALOX) suspension 30 mL (30 mLs Oral $Given 10/21/24 143) ondansetron (ZOFRAN) injection 4 mg (4 mg Intravenous $Given 10/21/24 143) Procedures Procedures Discussion of Management None ED Course ED Course as of 10/21/241858 Sandra Oct 21, 2024 1416 I obtained history and examined the patient as noted above. 1854 I rechecked the patient and explained findings. He feels well and his abdominal has resolved. We discussed plan for discharge and patient is in agreement with plan. Additional Documentation None Medical Decision Making / Diagnosis [facility] Diagnoses: None MIPS None MDM Peter Devi is a 64 year old male presents for evaluation of right upper quadrant pain and upper abdominal pain. Evaluation today is consistent with biliary colic. Laboratory studies overall reassuring. No leukocytosis normal LFTs and lipase. Findings are not suggestive of cholecystitis or other abdominal infection. Patient symptoms improved while here in the emergency department. Urinalysisbland. Recheck abdominal exam revealed no tenderness. EKG obtained which showed no overt ischemia. Troponin delta troponin negative. History of thoracic aortic aneurysm noted. Symptoms suggestive of biliary colic. No overt abnormalities on chest x-ray therefore did not feel that we need to pursue ao rtic imaging today. Symptoms resolved and consistent with biliary colic therefore did not feel thatfurther abdominal imaging was indicated. Plan for discharge home follow-up with general surgery regarding gallstones Patient also notes that he has had some increasing redness from the bilateral lower legs. He scraped these a few days ago. Exam does show signs of developing cellulitis. He does not see signs of systemic infection. I discussed with him that he is at risk for significant infection due to his diabetes. Recommend Keflex prescription given. Elevate legs. Return for fever increasing redness pain or drainage. Discharged home Disposition The patient was discharged. Diagnosis ICD-10-CM 1. Cellulitis of left lower leg L03.116 2. Biliary colic K80.50 Discharge Medications New Prescriptions CEPHALEXIN (KEFLEX) 500 MG CAPSULE Take 1 capsule (500 mg) by mouth 4 times daily for 10 days. ONDANSETRON (ZOFRAN ODT) 4 MG ODT TAB Take 1 tablet (4 mg) by mouth every 8 hours as needed for nausea or vomiting. Scribe Disclosure: Leanna Chakraborty, am serving as a scribe at 2:01 PM on 10/21/2024 to document services personallyperformed by Shira Valdez MD based on my observations and the provider's statements to me. Shira Valdez MD 10/22/24 0141 * Dilia Hawk, RN - 10/21/2024 1:53 PM CDT Pt here with c/o n/v/d and LLQ pain since 299. Referred here from Dianne OLGUIN. ABC intact. A&Ox4. documented in this encounter Plan of Treatment Upcoming Encounters Date Type Department Care Team (Late st Contact Info) Description 12/11/2024 2:10 PM CDT Therapy Visit [facility] [address] [place] [phone] Shanta Cooper, PT 12/14/2024 11:20 AM CDT Office Visit [address] [phone] Lizet Mann PA-C [address] [place] [phone] 12/17/2024 2:10 PM CDT Office Visit [facility] [address] [facility] 4th [place] [phone] Richard Kam MD [address] [place] [address] 12/19/2024 8:20 AM CDT Therapy Visit [address] [phone] Shanta Cooper, PT 12/24/2024 5:00 PM CDT Therapy Visit [address] [phone] Pattie Casillas, PT 12/25/2024 10:20 AM CDT Therapy Visit [address] [phone] Shanta Cooper, PT 01/03/2025 1:00 PM CDT Office Visit [address] [phone] Estella Hassan, [facility] [address] [place] [address] 01/03/2025 1:30 PM CDT Office Visit [address] [phone] [place]lez [place] [id number] [place] [address] 01/08/2025 1:15 PM CDT Office Visit [address] [place] [phone] Hakeem Chacko MBBS [address] [place] [phone] Scheduled Procedures Name Priority Associated Diagnoses Date/Ti me INJECTION, EPIDURAL, TRANSFO RAMINAL APPROACH Cervical radiculitis RELEASE, CARPAL TUNNEL, ENDOSCOPIC Right carpal tunnel syndrome documented as of this encounter Goals Goal [...] for health insurance by looking in to [employer] and talking with a FRW. Completed 3. I will look for a new job and will access resources that the [employer] [facility] offers. . Sarted new job 4. Continue to use Single Care to reduce the cost of my prescriptions. Create an action plan to increase financial stability Care Plan Patient expresses financial resource strain No Josefina Patel Become up-to-date with health maintenance visit(s) Care Plan Health Maintenance Due or Overdue 30%( 5 3:13 PM CDT) No Mitra Kendall LSW Note: Barriers: Life [...] Care Plan Patient expresses financial resource strain 40%( 5 3:13 PM CDT) Mitra Borja LSW Note: Barriers: Financial stressors Strengths: I am working, I receive Social Security Disability Patient expressed understanding of goal: Yes Action steps to achieve this goal: 1. I will work with W in applying for [place], county assistance and to see if I qualify for Medicaid. I need to ask spouse what her income is as it goes by household income. 2. I will contact [facility] to ask about medicare plans and if there are saving programs I qualify for by by calling [phone]. 3. I will see if I am eligible for unemployment after losing my job. I will call [phone] to ask for assistance with unemployment application. 4. I will apply for jobs. I will work with [employer] in finding a job (Empowerment.) 5. I will access [employer] and ask about financial resources (such as getting gas card.) Improve management of mental health symptoms and establish with mental health/psychosocia l supports Care Plan Mental Health Symptoms Need Improvement 70%( 5 10:47 AM CDT) Mitra Borja LSW Note: Updated on 08/30/24 Barriers: I struggle with having anxiety.My children won;t talk with me due to my mental health concerns Strengths: I am accessing support that is available to me. Patient expressed understanding of goal: Yes Action steps to achieve this goal: 1. I will continue working with therapist at [facility]. 2. I will establish with Psychiatry. Planning to schedule with Ronnie. 3. I will meet with community mixed crop and livestock farm worker Manjula Gresham. 4. I will look in to attending an IOP program. I will discuss with my [facility] therapist and number provided for [facility] - [phone] to schedule assessment fr IOP program. 5. I will go to [facility] if I have concerning mental health symptoms. 6. I will access [facility] if needed by calling [phone]. 7. I will consider calling [facility] [facility] Adult Mental health intake at [phone]. documented as of this encounter Procedures Procedure Name Priority Date/Time Associated Diagnosis Comments ROUTINE UA WITH MICROSCOPIC STAT 10/21/2024 5:47 PM CDT TROPONIN T, HIGH SENSITIVITY STAT 10/21/2024 4:32 PM CDT XR CHEST 2 VIEWS STAT 10/21/2024 3:17 PM CDT US ABDOMEN LIMITED STAT 10/21/2024 3: 16 PM CDT EXTRA TUBE STAT 10/21/2024 2:30 PM CDT EXTRA RED TOP TUBE STAT 10/21/2024 2: 30 PM CDT EXTRA BLUE TOP TUBE STAT 10/21/2024 2 :30 PM CDT CBC WITH PLATELETS (LIMITED OCCURRENCES) STAT 10/21/2024 2:30 PM CDT COMPREHENSIVE METABOLIC PANEL (LIMITED OCCURRENCES) STAT 10/21/2024 2:30 PM CDT TROPONIN T, HIGH SENSITIVITY STAT 10/21/2024 2:30 PM CDT NT-PROBNP STAT 10/21/2024 2:30 PM CDT LIPASE STAT 10/21/2024 2:30 PM CDT EKG 12-LEAD, TRACING ONLY STAT 10/21/2024 2:20 PM CDT documented in this encounter Results * UA with Microscopic (10/21/2024 5:47 PM CDT) Color Urine Straw Colorless, Straw, Light Yellow, Yellow 10/21/2024 6:08 PM CDT LABORATORY Appearance Urine Clear Clear 10/22/19 6:08 PM CDT LABORATORY Glucose Urine Negative Negative mg/dL 10/21/2024 6:08 PM CDT LABORATORY Bilirubin Urine Negative Negative 6:08 PM CDT LABORATORY Ketones Urine Negative Negative mg/dL 10/21/2024 6:08 PM CDT LABORATORY Specific [place] Urine 1.004 1.003 - 1.035 10/21/2024 6:08 PM CDT LABORATORY Blood Urine Negative Negative 10/21/2024 6:08 PM CDT LABORATORY pH Urine 5.5 5.0 - 7.0 10/21/2024 6:08 PM CDT LABORATORY Protein Albumin Urine Negative Negative mg/dL 10/21/2024 6:08 PM CDT LABORATORY Urobilinogen Urine Normal Normal mg/dL 10/21/2024 6:08 PM CDT LABORATORY Nitrite Urine Negative Negative 10/21/2024 6:08 PM CDT LABORATORY Leukocyte Esterase Urine Negative Negative 10/21/2024 6:08 PM CDT LABORATORY RBC Urine 1 <=2 /HPF 10/21/2024 6:08 PM CDT LABORATORY WBC Urine 0 <=5 /HPF 10/21/2024 6:08 PM CDT LABORATORY Urine MID-STREAM URINE SPECIMEN / Unknown Non-blood Collection / Unknown 10/21/2024 5:47 PM CDT 10/21/2024 5:58 PM CDT us Shira Valdez MD LAB - URINE HAYDEN VÁZQUEZ Final Result LABORATORY [facility] [address] Lab (1st floor, no room number) [place] [address], [facility] * Troponin T, High Sensitivity (10/21/2024 4:32 PM CDT) Troponin T, High Sensitivity 17 <=22 ng/L 10/21/2024 5:09 PM CDT LABORATORY Comment: Either a High [...] urgent outpatient provocative testing. Blood STRUCTURE OF RIGHT HAND / Unknown Venipuncture / Unknown 10/21/2024 4:32 PM CDT 10/21/2024 4:46 PM CDT us Shira Valdez MD LAB - BLOOD HAYDEN VÁZQUEZ Final Result [facility] Lab [address] Lab (1st floor, no room number) [place] [address] * Chest XR, PA & LAT (10/21/2024 3:17 PM CDT) Anatomical Region Laterality Modality Chest Digital Radiogra phy 10/21/2024 3:17 PM CDT Impressions 10/21/2024 3:24 PM CDT IMPRESSION: Negative chest. Narrative 10/21/2024 3:24 PM CDT EXAM: XR CHEST 2 VIEWS LOCATION: [facility] DATE: 10/21/2024 INDICATION: chest pressure COMPARISON: None. Procedure Note Jimmy Cedeno MD - 10/21/2024 EXAM: XR CHEST 2 VIEWS LOCATION: [facility] DATE: 10/21/2024 INDICATION: chest pressure COMPARISON: None. IMPRESSION: Negative chest. us Shira Valdez MD IMG DIAGNOSTIC I MAGING ORDERABLES Final Result * US Abdomen Limited (10/21/2024 3:16 PM CDT) Anatomical Region Laterality Modality Abdomen/Pelvis Ultrasound 10/21/2024 3:16 PM CDT Impressions 10/21/2024 3:25 PM CDT IMPRESSION: 1. Cholelithiasis. Otherwise negative. Narrative 10/21/2024 3:25 PM CDT EXAM: US ABDOMEN LIMITED LOCATION: [facility] DATE: 10/21/2024 INDICATION: epigastric pain COMPARISON: None. TECHNIQUE: Limited abdominal ultrasound. FINDINGS: GALLBLADDER: Cholelithiasis. Small collection of stone material. No wall thickening or free fluid. BILE DUCTS: No biliary dilatation. The common duct measures 2 mm. LIVER: Normal parenchyma with smooth contour. No focal mass. The portal vein is patent with flow in the normal direction. RIGHT KIDNEY: No hydronephrosis. PANCREAS: The visualized portions are normal. No ascites. Procedure Note Jimmy Cedeno MD - 10/21/2024 EXAM: US ABDOMEN LIMITED LOCATION: [facility] DATE: 10/21/2024 INDICATION: epigastric pain COMPARISON: None. TECHNIQUE: Limited abdominal ultrasound. FINDINGS: GALLBLADDER: Cholelithiasis. Small collection of stone material. No wallthickening or free fluid. BILE DUCTS: No biliary dilatation. The common duct measures 2 mm. LIVER: Normal parenchyma with smooth contour. No focal mass. The portalvein is patent with flow in the normal direction. RIGHT KIDNEY: No hydronephrosis. PANCREAS: The visualized portions are normal. No ascites. IMPRESSION: 1. Cholelithiasis. Otherwise negative. us Shira Valdez MD [facility] US ORDERABLE S Final Result * Extra Red Top Tube (10/21/2024 2:30 PM CDT) Pathologist [facility] Hold Specimen [facility] 10/21/2024 4:16 PM CDT LABORATORY Blood BLOOD SPECIMEN / Unknown Venipuncture / Unknown 10/21/2024 2:30 PM CDT 10/21/2024 3:14 PM CDT us Shira Valdez MD LAB - BLOOD ORDE CARMENZAID Final Result [facility] [address] Lab (1st floor, no room number) [place] [address], [facility] [place] * Extra Blue Top Tube (10/21/2024 2:30 PM CDT) Hold Specimen [facility] 10/21/2024 4:16 PM CDT LABORATORY Blood BLOOD SPECIMEN / Unknown Venipuncture / Unknown 10/21/2024 2:30 PM CDT 10/21/2024 3:14 PM CDT us Shira Valdez MD LAB - BLOOD RAYRAYE GURPREET Final Result Performing Organization Address City/[facility]/ZIP Co de Phone Number [facility] Lab [address] Lab (1st floor, no room number) [place] [address], [facility] [place] * NT-proBNP (10/21/2024 2:30 PM CDT) [facility] NT-proBNP <36 0 - 229 pg/mL 10/21/2024 4:05 PM CDT LABORATORY Comment: Starting on 07/18/2024, [facility] laboratory began flagging abnormal values for plasma NT-proBNP results for adults using age-specific reference ranges instead of clinical cut-points/thresholds (see interpretation comment below for clinical threshold values) as part of a test standardization effort. Pediatric abnormal values were already previously flagged using age-specific reference intervals, which are not currently changing. The test methodology remains unchanged, and previous results performed with this methodology can be interpreted with the updated reference intervals. [facility]'s Pediatric (boys and girls) Reference Ranges in pg/mL * 0 up to 3 days: 0 - 78853 3 days up to 1 month: 0 - 6500 1 month up to 1 year: 0 - 1000 2 up to 6 years: 0 - 330 6 up to 18 years: 0 - 240 Male Reference Ranges in pg/mL 18-44 years: 0 - 93 45-54 years: 0 - 138 55-64 years: 0 - 177 65-74 years: 0 - 229 75 years or older: 0 - 852 Female Reference Ranges in pg/mL 8-44 years: 0 - 178 45-54 years: 0 - 192 55-64 years: 0 - 226 65-74 years: 0 - 353 75 years or older: 0 - 624 Reference ranges in adults reflect 95th percentiles for NT-pro-BNP levels in patients without congestive heart failure (CHF). Knowledge of each individual patient's NT-proBNP range may be more useful than using similar cut-points for every patient. For adult chronic CHF patients according to [place] [employer] ([employer]HA) Functional Class, the mean NT-proBNP concentration is as following (5th and 95th percentile values respectively displayed in parentheses): Class I: 1016 pg/mL (33-3410) Class II: 1666 pg/mL (103-6567) Class III: 3029 pg/mL (126-46588) Class IV: 3465 pg/mL (148-94512) Clinical thresholds for acute (emergency department) settings: < 300 pg/mL effectively rules out acute decompensated heart failure (ADHF), with 99% negative predictive value. The following values may rule in potential acute decompensated heart failure (ADHF) in individuals (with a PPV of 50-60%): Under 50 years: >450 pg/mL Between 50-75 years: >900 pg/mL Over 75 years: >1800 pg/mL Among patients with dyspnea, NT-proBNP is highly sensitive for detection of acute CHF. Elevations in NT-proBNP levels may be observed in states other than left ventricular congestive failure including: acute coronary syndromes, right heart strain/failure (including pulmonary embolism and cor pulmonale), critical illness, and renal failure. Falsely low NT-proBNP in CHF patients may be observed in increased body mass index. * References: (1) Kiet Delatorre et al. Pediatr Cardiol 30:3-8, 2008. Blood BLOOD SPECIMEN / Unknown Venipuncture / Unknown 10/21/2024 2:30 PM CDT 10/21/2024 3:14 PM CDT Shira Valdez MD LAB - BLOOD HAYDEN VÁZQUEZ Final Result Performing Organization Address [facility]/ZIP Co de Phone Number [facility] Lab [address] Lab (1st floor, no room number) [place] [phone] * Troponin T, High Sensitivity (10/21/2024 2:30 PM CDT) Troponin T, High Sensitivity 17 <=22 ng/L 10/21/2024 3:46 PM CDT LABORATORY Comment: Either a High [...] BLOOD SPECIMEN / Unknown Venipuncture / Unknown 10/21/2024 2:30 PM CDT 10/21/2024 3:14 PM CDT Shira Valdez MD LAB - BLOOD HAYDEN VÁZQUEZ Final Result Performing Organization Address [facility]/ZIP Co de Phone Number [facility] Lab [address] Lab (1st floor, no room number) [place] [address] * Lipase (10/21/2024 2:30 PM CDT) Lipase 36 13 - 60 U/L 10/21/2024 3:41 PM CDT LABORATORY Blood BLOOD SPECIMEN / Unknown Venipuncture / Unknown 10/21/2024 2:30 PM CDT 10/21/2024 3:14 PM CDT us Shira Valdez MD LAB - BLOOD HAYDEN VÁZQUEZ Final Result RH LABORATORY [facility] [address] Lab (1st floor, no room number) [place] [address], [facility] * (ABNORMAL) Comprehensive Metabolic Panel (Limited Occurrences) (10/21/2024 2:30 PM CDT) Sodium 137 135 - 145 mmol/L 10/21/2024 3:41 PM CDT LABORATORY Potassium 4.1 3.4 - 5.3 mmol/L 10/21/2024 3:41 PM CDT RH LABORATORY Carbon Dioxide (CO2) 25 22 - 29 mmol/L 10/21/2024 3:41 PM CDT RH LABORATORY Anion Gap 10 7 - 15 mmol/L 10/21/2024 3:41 PM CDT RH LABORATORY Urea Nitrogen 14.6 8.0 - 23.0 mg/dL 10/21/2024 3:41 PM CDT LABORATORY Creatinine 0.67 0.67 - 1.17 mg/dL 10/21/2024 3:41 PM CDT RH LABORATORY GFR Estimate >90 >60 mL/min/1.7 3m2 10/21/2024 3:41 PM CDT RH LABORATORY Comment:eGFR calculated us2020 CKD-EPI equation. Calcium 8.6(L) 8.8 - 10.4 mg/dL 10/21/2024 3:41 PM CDT LABORATORY Chloride 102 98 - 107 mmol/L 10/21/2024 3:41 PM CDT LABORATORY Glucose 171(H) 70 - 99 mg/dL 10/21/2024 3:41 PM CDT RH LABORATORY Alkaline Phosphatase 76 40 - 150 U/L 10/21/2024 3:41 PM CDT RH LABORATORY AST 16 0 - 45 U/L 10/21/2024 3:41 PM CDT RH LABORATORY ALT 24 0 - 70 U/L 10/21/2024 3:41 PM CDT RH LABORATORY Protein Total 6.0(L) 6.4 - 8.3 g/dL 10/21/2024 3:41 PM CDT RH LABORATORY Albumin 3.7 3.5 - 5.2 g/dL 10/21/2024 3:41 PM CDT RH LABORATORY Bilirubin Total 0.4 <=1.2 mg/dL 10/21/2024 3:41 PM CDT RH LABORATORY Blood BLOOD SPECIMEN / Unknown Venipuncture / Unknown 10/21/2024 2:30 PM CDT 10/21/2024 3:14 PM CDT Shira Valdez MD LAB - BLOOD HAYDEN VÁZQUEZ Final Result RH LABORATORY [facility] [address] Lab (1st floor, no room number) [place] [address], [facility] [place] * (ABNORMAL) CBC with Platelets (Limited Occurrences) (10/21/2024 2:30 PM CDT) WBC Count 6.1 4.0 - 11.0 10e3/uL 10/21/2024 3:16 PM CDT RH LABORATORY RBC Count 4.45 4.40 - 5.90 10e6/uL 10/21/2024 3:16 PM CDT RH LABORATORY Hemoglobin 12.8(L) 13.3 - 17.7 g/dL 10/21/2024 3:16 PM CDT RH LABORATORY Hematocrit 37.5(L) 40.0 - 53.0 % 10/21/2024 3:16 PM CDT RH LABORATORY MCV 84 78 - 100 fL 10/21/2024 3:16 PM CDT RH LABORATORY MCH 28.8 26.5 - 33.0 pg 10/21/2024 3:16 PM CDT RH LABORATORY MCHC 34.1 31.5 - 36.5 g/dL 10/21/2024 3:16 PM CDT RH LABORATORY RDW 13.6 10.0 - 15.0 % 10/21/2024 3:16 PM CDT RH LABORATORY Platelet Count 191 150 - 450 10e3/uL 10/21/2024 3:16 PM CDT RH LABORATORY Blood BLOOD SPECIMEN / Unknown Venipuncture / Unknown 10/21/2024 2:30 PM CDT 10/21/2024 3:14 PM CDT Shira Valdez MD LAB - BLOOD HAYDEN VÁZQUEZ Final Result [facility] [address] Lab (1st floor, no room number) [place] [address] * EKG 12 lead (10/21/2024 2:20 PM CDT) Systolic Blood Pressure mmHg RADIOLOGY RESULTS Diastolic Blood Pressure mmHg RADIOLOGY RESULTS Ventricular Rate 76 BPM RAD IOLOGY RESULTS Atrial Rate 76 BPM RADIOLOG Y RESULTS OK Interval 146 ms RADIOLOG Y RESULTS QRS Duration 90 ms RADIOLO GY RESULTS QT 380 ms RADIOLOGY RESULTS QTc 427 ms RADIOLOGY RESULTS P [place] 74 degrees RADIOLOGY RESULTS R AXIS -25 degrees RADIOLOGY RESULTS T [place] 50 degrees RADIOLOGY RESULTS Interpretation ECG Unconfirmed report - interpretation of this ECG is computer generated - see medical record for final interpretation Sinus rhythm with occasional Premature ventricular complexes Possible Inferior infarct (cited on or before 18-Dec-2023) Abnormal ECG When compared with ECG of 17-Oct-2024 20:58, Premature ventricular complexes are now Present Premature atrial complexes are no longer Present Confirmed by - EMERGENCY ROOM, PHYSICIAN ([id number]), editor city KATHIA MENA (Brad) on 10/22/2024 7:01:06 AM RADIOLOGY RESULTS 10/21/2024 2:20 PM CDT 10/22/2024 7:01 AM CDT Shira Valdez MD ECG ORDERABLES Edited Result - Final RADIOLOGY RESULTS documented in this encounter Visit Diagnoses Diagnosis Cellulitis of left lower leg- Primary Cellulitis and abscess of leg, except foot Biliary colic Calculus of gallbladder without mention of cholecystitis or obstruction documented in this encounter Administered Medications Inactive Administered Medications - up to 3 most recent administrations Medication Order MAR Action Action Date Dose Rate Site alum & mag hydroxide-simethicone (MAALOX) suspension 30 mL 30 mL, Oral, ONCE, On 10/21/24 at 1420, For 1 dose, Shake well. $Given 10/21/2024 2:31 PM CDT 30 mLs cephALEXin (KEFLEX) capsule 500 mg STAT, 500 mg, Oral, ONCE, On 10/21/24 at 1900, For 1 dose, Indications: Skin and Soft Tissue InfectionIndications:Skin and Soft Tissue Infection $Given 10/21/2024 7:22 PM CDT 500 mg ondansetron (ZOFRAN) injection 4 mg 4 mg, Intravenous, ONCE, Administer over 2-5 Minutes, On 10/21/24 at 1420, For 1 dose $Given 10/21/2024 2:31 PM CDT 4 mg documented in this encounter Active and Recently Administered Medications Times are shown in CDT. Scheduled Medication Order 10/19/2024 10/20/2024 10/21/2024 alum & mag hydroxide-simethicone (MAALOX) suspension 30 mL (COMPLETED) 30 mL, Oral, ONCE, On 10/21/24 at 1420, For 1 dose, Shake well. 1431 ($Given - Provi crista: Harriet Zimmerman, INOCENCIO) cephALEXin (KEFLEX) capsule 500 mg (COMPLETED) STAT, 500 mg, Oral, ONCE, On 10/21/24 at 1900, For 1 dose, Indications: Skin and Soft Tissue Infection 1921 ($Given - Provi crista: Laurence Guillory, INOCENCIO) ondansetron (ZOFRAN) injection 4 mg (COMPLETED) 4 mg, Intravenous, ONCE, Administer over 2-5 Minutes, On 10/21/24 at 1420, For 1 dose 1431 ($Given - Provi crista: Harriet Zimmerman, INOCENCIO) documented in this encounter Additional Health Concerns [...] I will update CCC Team at outreach. Health Maintenance Due or Overdue 12/16/2023 Patient expresses financial resource strain 12/13 Mental Health Symptoms Need Improvement 04/05/19 25 Assessment Noted Time PHQ-9 Depression Total Score: 7 09/28/19 25 11:01 AM CDT documented as of this encounter Care Teams Accessories Repairer Relationship Specialty [place] [address] [place] [address] PCP - General Family Practice 07/11/14 [place] [address] [place] [address] Assigned PCP 12/16/11 Christy Campuzano PA-C [address] [place] [address] [phone] Referring Physician Family Medicine 04/22/20 Hans Cannon MD [address] [place] [id number] Resident Pulmonary Disease 04/22/20 [facility] [address] [place], [place] [address] Pharmacist Pharmacist 05/26/20 Elaina Moreno MD [address] [place] [address] Cardiovascular & Thoracic Surgery 08/06/20 John Webb MD [address] [id number] Cardiovascular Disease 08/25/21 John Webb MD [address] [phone] Cardiovascular Disease 08/25/21 Estella Hassan, [facility] [address] [place] [address] Assigned MTM Pharmacist 12/09/21 Lindsay Carey OD [address] [address] Ophthalmology 01/29/22 Richard Kam MD [address] [place] [id number] Assigned Musculoskeletal Provider 08/14/22 [place] [address] [id number] Assigned Neuroscience Provider 01/01/23 12/03/24 Rosemarie Mcdowell, RN Silverlight Developer Diabetes Education 03/17/23 Mitra Kendall, RADIO STATION AUDIO ENGINEER Lead Furrier Apprentice Primary Care - CC 12/12/23 Lizet Mann PA-C [address] [place] [id number] Assigned Cancer Care Provider 01/04/24 Ravi Brownlee MD [address] [place] [address] [id number] Assigned Pulmonology Provider 01/04/24 Manuel Ahn OD [address] [facility] [place] [address] Animal Attendant 01/05/24 Thalia Charles [facility] [address] [place], [place] [phone] Pharmacist Pharmacy 01/26/24 Guarav Valenzuela APRN HEALTH INFORMATICS INSTRUCTOR [address] [facility] [place] [address] [place], [place] [address] Assigned Sleep Provider 02/04/24 Debbie Mann MD [address] [facility] [address] [place], [place] [phone] Cardiovascular Disease 02/24/24 Hakeem Chacko MBBS [address] [place], [place] [phone] Assigned Rheumatology Provider 04/05/24 Debbie Mann MD [address] [facility] [address] [place], [place] [phone] Assigned Heart and Vascular Provider 05/06/24 Timothy Tejada MD [address] [place] [phone] Ophthalmology 05/29/24 Timothy Tejada MD [address] [place] [address] Assigned Surgical Provider 06/03/24 Elsie Roberts APRN HEALTH INFORMATICS INSTRUCTOR [address] [facility] [address] [place], [place] [phone] Nurse Practitioner Pain Medicine 10/16/24 documented as of this encounter
--- OUTSIDE RECORDS SUMMARY | 2024-10-22 15:20 | XMS_ITS | Encounter Summary ---
Author Organization [facility] Address [address] [place] [address] Care Team Providers Care Sequins Stringer Name Role Phone Va Glez MD Primary Care Provider Va Glez MD Unavailable Christy CampuzanoC Unavailable [phone] Hans Cannon MD Unavailable Estella Hassan [facility] Unavailable [phone] Josh Cordero MD, Madhuri Unavailable [phone] John Webb MD Unavailable John Webb MD Unavailable Estella Hassan [facility] Unavailable [phone] Lindsay Carey OD Unavailable Richard Kam MD Unavailable Gaby Vila DO Unavailable [phone] Rosemarie Mcdowell RN Unavailable Mitra Kendall MOTOR COACH TOUR OPERATOR Unavailable [phone] Lizet Mann PA-C Unavailable Ravi Brownlee MD Unavailable [phone] Manuel Ahn OD Unavailable [phone] Thalia Charles [facility] Unavailable Gaurav Valenzuela DIRECTOR STARS DIRECTOR OF REGIONAL SALES Unavailable [phone] Debbie Mann MD Unavailable [phone] Hakeem Chacko MB Unavailable Debbie Mann MD Unavailable [phone] Timothy Tejada MD Unavailable [phone] Timothy Tejada MD Unavailable [phone] Elsie Roberts Jennifer DIRECTOR STARS DIRECTOR OF REGIONAL SALES Unavailable + Reason for Visit * Reason Comments RECHECK Follow-up right wris t carpal tunnel release set for 11/01/24 Encounter Details Date Type Department Care Team (Latest Contact Info) Description 10/22/2024 3:20 PM CDT Office Visit [facility] [address] [place] [address] Richard Kam MD [address] [place] [address] Right carpal tunnel syndrome (Primary Dx); Cervical radiculopathy Social History Tobacco Use Types Packs/Day Years [...] re latives? 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 He was just seen last week. His main concern today is the burning paresthesias in his forearm and dorsal part ofthe hand. He also endorses some symptoms in his upper arm as well. He does continue to have paresthesias in the median nerve distribution as well. The patient was in the emergency department.yesterday with right upper quadrant pain and lower extremity cellulitis. He was started on Keflex. Update 10/17/24: Patient returns today to discuss surgery. Numbness and tingling have gotten worse. He also reports symptoms in several weeks on the dorsum of the hand as well as burning in the upper arms. The patient did see Dr. Arango and was referred to neurosurgery. He saw them 10/10/24 but only RLE symptoms were discussed. Update 09/25/24: Patient last seen on 09/18/24 and seen at walk in clinic on 09/21/24. Per last visit patient to follow up in 2-3 months if pain persists. He does state that he is wearing the wrist braceas much as possible, but is unable to wear it all the time. He feels the wrist pain may give a little relief. He would like to discuss if the surgery will take his wrist pain and numbness. He states that he feels that there is something in his wrist or that someone is holding his wrist. The patientalso reports numbness and tingling in his arms as well. Update 09/18/24: Patient was last seen 03/20/24. He returns today due to numbness and tingling and painin his hand. He states his symptoms are intermittent, but were pretty bad last night. He has never described the symptoms to me in the past. 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 It does not bother him. I last provided him an injection 1 year ago 10/04/2023. He has seen rheumatology. He has recently obtained an EMG Update 03/20/24: Patient is here today to revisit treatment options for his right wrist. He is wondering again if there are any options aside from surgery for his wrist. In February, the patient was inthe emergency department for pain radiating from his neck down into his arm. He does not have much numbness or tingling in his fingers. He saw vascular medicine for a thoracic aortic aneurysm. He states that this provider told him the the paresthesias were likely related to his neck. He is due to have an MRI of his C-spine on the . Update 02/07/24: Patient is here today to follow-up about right wrist pain. He reports the last injection gave him relief for a about 1 month. He states that more recently his pain has started to go up his arm. He continues working with OT. He is looking to see if there are any other options other than fusion. Update 10/04/23 Patient last seen on 06/21/23 at which point patient had repeat injection of the radiocarpal joint and distal radial ulnar joint. He states that the injections gave him about 2 months ofrelief. he has been doing OT which he feels helps a little. He is still very painful at the wrist, particularly on the ulnar side. Pain is aggravated by activities such as reaching behind his back. He has been using an off the shelf wrist brace at home. He has improved his hemoglobin A1c and glycemic control. 06/21/23: Patient was last seen 12/29/21. He received a right radiocarpal injection at that time thatprovided relief for maybe about 4 months. He returns due to persistent pain. Waxes and wanes. Some days are better than others. Pain is aggravated by twisting motions and loading of the wrist. Located dorsally and ulnarly. He has a compressive strap which seems to help. He is working with hand therapy. HPI: Mr. Peter Devi is a 63 year old male right hand dominant who presents with right wrist pain. Referred by Dr. Mathews for a consult. Started in May when patient fell on ice and fell on outstretched hand. Pain lasted a few hours and then resolved. Pain returned in September with no known injury and has been worsening since then. His pain is in the joint and ulnar sided. Pain is intermittent and aggravated by certain wrist motions, specifically flexion and ulnar deviation. 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 Prior Treatment: brace, hand therapy, home exercise program Previous Imaging: XR 06/11/21, MR 12/08/21 He has a history of diabetes. Does not smoke. Avid baseball fan,. VITALS: There were no vitals filed for this visit. EXAM: General: NAD, A&Ox3 HEENT: NC/AT CV: RRR by peripheral pulse Pulmonary: Non-labored breathing on RA RUE: 65 degrees of wrist extension, 50 degrees wrist flexion Full pronation supination symmetric to contralateral Skin intact, no deformity No tenderness to palpation over the SL interval and lunate No TTP over the DRUJ, no DRUJ instability No Tenderness in the ulnar fovea with swelling Negative Yu shift, however this causes significant pain within and ulnar to the wrist 5 5 EPL, FPL, hand intrinsics Sensation intact to light touch in the median, radial, ulnar nerve distributions Well-perfused, capillary refill less than 2 seconds Positive Tinel's and Durkan's compression test at the carpal tunnel Negative Tinel's at the cubital tunnel Positive Spurling's IMAGING: XRs of R wrist obtained 06/21/2023 compared to previous. These demonstrate isolated radiolunate arthrosis with ulnar carpal subluxation. Scaphoid appears flexed. DRUJ arthrosis. Similar appearance to 2021 x-ray. MRI of R wrist demonstrates high grade cartilage loss of radioscaphoid and articulations. No obvious SL tear. 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 Diffuse degenerative change of the cervical spine as detailed above. 2. No high-grade spinal canal stenosis of the cervical spine. 3. Moderate neural foraminal stenosis on the left at C3-C4, on the left at C4-C5 and bilaterally atC5-C6. EMG/NCS 08/23/2024 Prolonged distal onset latency of the left and right median motor nerves. Prolonged distal peak latency bilateral median sensory nerves with reduced amplitude. All remaining nerves within normal limits. Bilateral APB muscles showed 1+ motor unit amplitude, increased motor unit duration, moderate reduced recruitment. Findings are consistent with moderate bilateral carpal tunnel syndrome. Reduced sensory nerve action potential amplitudes could point towards peripheral neuropathy I have personally reviewed the above images and labs. IMPRESSION AND RECOMMENDATIONS: Mr. Peter Devi is a 63 year old male right hand dominant with right radiocarpal and DRUJ arthritis, worse in the radiolunate articulation, and right carpal tunnel syndrome. Patient is scheduled for right endoscopic carpal tunnel release next week and still wishes to proceed with this. I discussed the details of the surgery which would be performed under local anesthesiaas well as the postoperative recovery. We again had a long discussion regarding the symptoms in his upper arms. I suspect that he has a component of cervical radiculopathy as well as double crush phenomenon. He has significant C5-6 stenosis on MRI with paresthesias in the C6 distribution. I again emphasized that carpal tunnel release would improve numbness and tingling in his hands, but I do not expect it to improve paresthesias of the arms. The patient is due to see Dr. Gresham of neurosurgery on Tuesday. I encouraged the patient to askhim about a cervical steroid injection and physical therapy. The patient wishes to be more sure about the cause of his symptoms, and an injection may be diagnostic and therapeutic. However I would defer recommendations to Dr. Gresham. I did advise that carpal tunnel release is a very low risk procedure. It could be done first to seewhat type of improvement he has. If he has residual pursue any paresthesias, then he could pursue treatment for cervical radiculopathy. The patient states that symptoms are very bothersome. He requests some medication to help him in the next few days. I therefore prescribed him a Medrol Dosepak. However I encouraged him to try to avoid taking this unless absolutely necessary so that Dr. Gresham can best assess his symptoms. Regarding his bilateral lower extremity cellulitis, I did advise that he should try to get this resolved before next week. He is currently on antibiotics. I will assess this the day of surgery to determine its improvement and whether or not we will proceed. 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 This is overall doing well and is not his chief concern today. Previous labs demonstrated RF 105 and borderline positive ALVIN today. He has seen rheumatology where other labs were negative. We previously discussed conservative treatment and the details of a radioscapholunate fusion and Darrach procedure in detail. I advised that he should expect to lose 30 to 50% loss of motion. I do not think he is a good candidate for a total wrist arthroplasty. All questions answered. The patient voiced understanding and agreement. I spent a total of 40 minutes with Peter Amanda Devi during today's office visit. Over 50% of this time was spent counseling the patient, performing the history and physical exam, and coordinating care. Remainder of time spent on chart review and documentation. Richard Kam MD Flower Shop Manager Hand, Upper Extremity & Microvascular Surgery Department of Orthopaedic Surgery [facility] documented in this encounter Nursing Notes * Daniel DenisaPAVITHRA - 10/22/2024 3:20 PM CDT Reason For Visit: Chief Complaint Patient presents with RECHECK Follow-up right wrist carpal tunnel release set for 11/01/24 Primary MD: Va Glez Ref. MD: Est Age: [age] year old Irrigation Technician? No There were no vitals taken for this visit. Pain Assessment Patient Currently in Pain: Yes Patient's Stated Pain Goal: 10 Primary Pain Location: Wrist (Right wrist and hand) Pain Descriptors: Intermittent, Constant, Burning Hand Dominance Evaluation Hand Dominance: Right QuickDASH Assessment 09/25/2024 9:26 AM QuickDASH Main 1. Open a tight or new jar Mild difficulty 2. Do heavy award clerk (e.g., wash evans, floors) Moderate difficulty 3. Carry a shopping bag or briefcase No difficulty 4. Wash your back Moderate difficulty 5. Use a knife to cut food Unable to answer 6. Recreational activities in which you take some force or impact through your arm, shoulder or hand (e.g., golf, hammering, tennis, etc.) Mild difficulty 7. During the past week, to what extent has your arm, shoulder or hand problem interfered with yournormal social activities with family, friends, neighbours or groups Slightly 8. During the past week, were you limited in your work or other regular daily activities as a result of your arm, shoulder or hand problem Moderately limited 9. Arm, shoulder or hand pain Moderate 10.Tingling (pins and needles) in your arm,shoulder or hand Extreme 11. During the past week, how much difficulty have you had sleeping because of the pain in your arm, shoulder or hand Mild difficulty Quickdash Ability Score 34.09 Current Outpatient Medications Medication Sig Dispense Refill acetaminophen (TYLENOL) 500 MG tablet Take 500-1,000 mg by mouth every 6 hours as needed for mild pain. albuterol (PROAIR HFA/PROVENTIL HFA/VENTOLIN HFA) 108 (90 Base) MCG/ACT inhaler Inhale 2 puffs intothe lungs every 6 hours as needed for shortness of breath, wheezing or cough. 54 g 3 atorvastatin (LIPITOR) 40 MG tablet Take 1 tablet (40 mg) by mouth every evening. 90 tablet 3 blood glucose monitoring (NO BRAND SPECIFIED) meter device kit Use to test blood sugar 2 times daily or as directed. 1 kit 0 budesonide (PULMICORT) 0.5 MG/2ML neb solution Take 2 mLs (0.5 mg) by nebulization 2 times daily. (Patient not taking: Reported on 10/21/2024) 120 mL 11 cephALEXin (KEFLEX) 500 MG capsule Take 1 capsule (500 mg) by mouth 4 times daily for 10 days. 40 capsule 0 diclofenac (VOLTAREN) 1 % topical gel Apply 2 g topically 4 times daily as needed. DULoxetine (CYMBALTA) 30 MG capsule Take 30 mg by mouth daily. (Patient not taking: Reported on 10/21/2024) fluticasone (FLONASE) 50 MCG/ACT nasal spray [place] 1 spray into both nostrils daily. 16 g 5 gabapentin (NEURONTIN) 300 MG capsule Take 2 capsules (600 mg) by mouth 2 times daily. 360 capsule 3 glipiZIDE (GLUCOTROL XL) 10 MG 24 hr tablet TAKE 2 TABLETS BY MOUTH EVERY DAY 180 tablet 1 ipratropium - albuterol 0.5 mg/2.5 mg, 3mg,/3 mL (DUONEB) 0.5-2.5 (3) MG/3ML neb solution INHALE 3 MLS VIA NEBULIZER 4 TIMES A DAY NEEDED 270 mL 1 metFORMIN (GLUCOPHAGE XR) 500 MG 24 hr tablet Take 4 tablets (2,000 mg) by mouth daily (with dinner). 360 tablet 1 ondansetron (ZOFRAN ODT) 4 MG ODT tab Take 1 tablet (4 mg) by mouth every 8 hours as needed for nausea or vomiting. 10 tablet 0 ondansetron (ZOFRAN) 4 MG tablet Take 1 tablet (4 mg) by mouth every 8 hours as needed for nausea. 30 tablet 0 pioglitazone (ACTOS) 15 MG tablet Take 1 tablet (15 mg) by mouth daily. 90 tablet 1 triamcinolone (KENALOG) 0.1 % external cream Apply topically 2 times daily. 30 g 1 Allergies Allergen Reactions Singulair [Montelukast] Pt felt anxious on the medicine. DENISA HIDALGO ATC documented in this encounter Plan of Treatment Upcoming Encounters Date Type Department Care Team (Late st Contact Info) Description 12/11/2024 2:10 PM CDT Therapy Visit [facility] [address] [address] Shanta Cooper, PT 12/14/2024 11:20 AM CDT Office Visit [facility] [id number] [place] [phone] Lizet Mann PA-C [address] [place] [address] 12/17/2024 2:10 PM CDT Office Visit [facility] [place] [address] [facility] [address] [place] [phone] Richard Kam MD [address] [place] [address] 12/19/2024 8:20 AM CDT Therapy Visit [address] [place] [phone] Shanta Cooper, PT 12/24/2024 5:00 PM CDT Therapy Visit [address] [place] [phone] Pattie Casillas, PT 12/25/2024 10:20 AM CDT Therapy Visit [place] [address] [place] [phone] Shanta Cooper, PT 01/03/2025 1:00 PM CDT Office Visit [address] [phone] Estella Hassan, [facility] [address] [place] [address] 01/03/2025 1:30 PM CDT Office Visit [address] [phone] [place] [id number] [place] [address] 01/08/2025 1:15 PM CDT Office Visit [facility] [address] [facility] [address] [place] [phone] Hakeem Chacko MBBS [address] [place] [address] Scheduled Procedures Name Priority Associated Diagnoses Date/Ti [...] for health insurance by looking in to [employer] and talking with a FRW. Completed 3. I will look for a new job and will access resources that the [employer] offers. . Sarted new job 4. Continue [...] work with FRW in applying for [place], county assistance and to see if I qualify for Medicaid. I need to ask spouse what her income is as it goes by household income. 2. I will contact [employer] [facility] to ask about medicare plans and if there are saving programs I qualify for by by calling [phone]. 3. I will see if I am eligible for unemployment after losing my job. I will call [phone] to ask for assistance with unemployment application. 4. I will apply for jobs. I will work with [employer] in finding a job (Empowerment.) 5. I will access [employer] and ask about financial resources (such as [...] I will continue working with therapist at [facility]. 2. I will establish with Psychiatry. Planning to schedule with Ronnie. 3. I will meet with community tangled yarn worker Manjula Gresham. 4. I will look in to attending an IOP program. I will discuss with my [facility] therapist and number provided for [facility] - [phone] to schedule assessment fr IOP program. 5. [facility] if [facility] have concerning mental health symptoms. 6. I will access [facility] if needed by calling [phone]. 7. I will consider calling [facility] Adult Mental health intake at [phone]. documented as of this encounter Visit Diagnoses Diagnosis Right carpal tunnel syndrome- Primary Carpal tunnel syndrome Cervical radiculopathy Brachial neuritis or radiculitis nos documented in this encounter Additional Health Concerns [...] accurate information and submit it to the [facility]. 3. I will update CCC Team at outreach. Health Maintenance Due or Overdue 12/16/2023 Patient expresses financial resource strain 12/13 Mental Health Symptoms Need Improvement 04/05/19 25 Assessment Noted Time PHQ-9 Depression Total Score: 7 09/28/19 25 11:01 AM CDT documented as of this encounter Care Teams Sequins Stringer Relationship Specialty [place] [address] [place] [address] PCP - General Family Practice 07/11/14 [place] [address] [place] [address] Assigned PCP 12/16/11 Christy Campuzano PA-C [address] [place] [address] [id number] Referring Physician Family Medicine 04/22/20 Hans Cannon MD [address] [place] [address] [id number] Resident Pulmonary Disease 04/22/20 Estella Hassan, [facility] [address] [place] [address] Pharmacist Pharmacist 05/26/20 Elaina Moreno MD [address] [place], [place] [phone] Cardiovascular & Thoracic Surgery 08/06/20 John Webb MD [address] [id number] Cardiovascular Disease 08/25/21 John Webb MD [address] 834695 Cardiovascular Disease 08/25/21 Estella Hassan, [facility] [address] [facility] [place] [address] Assigned MTM Pharmacist 12/09/21 Lindsay Carey OD [address] [facility] [place] [address] Ophthalmology 01/29/22 Richard Kam MD [address] [place] [address] Assigned Musculoskeletal Provider 08/14/22 [place] [address] [address] [address] Assigned Neuroscience Provider 01/01/23 12/03/24 Rosemarie Mcdowell, RN Signal Constructor Diabetes Education 03/17/23 Mitra Kendall, MOTOR COACH TOUR OPERATOR Lead Supervisory Examiner Primary Care - CC 12/12/23 Lizet Mann PA-C [address] [place] [address] Assigned Cancer Care Provider 01/04/24 Ravi Brownlee MD [address] [facility] [address] [place], [place] [phone] Assigned Pulmonology Provider 01/04/24 Manuel Ahn OD [address] [place] [address] Foundry Worker General 01/05/24 Thalia Charles [facility] [address] [place], [place] [phone] Pharmacist Pharmacy 01/26/24 Gaurav Valenzuela APRN DIRECTOR OF REGIONAL SALES [address] [facility] [address] [place], [place] [address] Assigned Sleep Provider 02/04/24 Debbie Mann MD [address] [facility] [address] [place], [place] [phone] Cardiovascular Disease 02/24/24 Hakeem Chacko MBBS [address] [place] [address] Assigned Rheumatology Provider 04/05/24 Debbie Mann MD [address] [facility] [address] [place] [address] Assigned Heart and Vascular Provider 05/06/24 Timothy Tejada MD [address] [place] [address] MD Ophthalmology 05/29/24 Timothy Tejada MD [address] [place] [address] Assigned Surgical Provider 06/03/24 Elsie Roberts APRN DIRECTOR OF REGIONAL SALES [address] [facility] [address] [place] [address] Nurse Practitioner Pain Medicine 10/16/24 documented as of this encounter
--- OUTSIDE RECORDS SUMMARY | 2024-10-24 10:30 | XMS_ITS | Encounter Summary ---
Author Organization [place] Address [address] [place] [address] Care Team Providers Care Supervisor Typesetting Name Role Phone Va Glez MD Primary Care Provider [phone] Va Glez MD Unavailable Christy CampuzanoC Unavailable [phone] Hans Cannon MD Unavailable [phone] Estella Hassan [facility] Unavailable [phone] Josh Cordero MD, Madhuri Unavailable [phone] John Webb MD Unavailable John Webb MD Unavailable [phone] Estella aHssan [facility] Unavailable [phone] Lindsay Carey OD Unavailable Richard Kam MD Unavailable Gaby Vila DO Unavailable Rosemarie Mcdowell RN Unavailable [phone] Mitra Kendall TRANSPORT PILOT Unavailable [phone] Lizet Mann PA-C Unavailable [phone] Ravi Brownlee MD Unavailable [phone] Manuel Ahn OD Unavailable Thalia Charles [facility] Unavailable [phone] Gaurav Valenzuela RIVET TAPPING MACHINE OPERATOR SENIOR ACCOUNT EXECUTIVE Unavailable Debbie Mann MD Unavailable [phone] Hakeem Chacko Unavailable Debbie Mann MD Unavailable [phone] Timothy Tejada MD Unavailable [phone] Timothy Tejada MD Unavailable [phone] Elsie Roberts RIVET TAPPING MACHINE OPERATOR SENIOR ACCOUNT EXECUTIVE Unavailable + Reason for Visit * Reason Comments Hospital F/U Encounter Details Date Type Department Care Team (Late st Contact Info) Description 10/24/2024 10:30 AM CDT Office Visit [facility] [address] [place] [address] [phone] Juhi Serrano APRN SENIOR ACCOUNT EXECUTIVE [address] [place] [address] Bilateral cellulitis of lower leg (Primary Dx); Carpal tunnel syndrome of right wrist; Cervical spinal stenosis Social History Tobacco Use Types Packs/Day Years [...] re latives? Once a week 09/27/2024 Attends [employer] Services Not on file 09/27 Active Member [...] Answer Date Recorded PHQ-2 Score 2 09/27/2024 [facility] - Occupational Stress Questionnaire Answer [...] in an overnight longterm, 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.) Yes 09/27/2024 Are you worried [...] on file Legal 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 ACCOUNTS COLLECTOR Gender Identity Not on file Sexual Orientation Not on file Occupation Industry Job Start Date Job End Date Not on file Not on file Not on file Not on file documented as of this encounter Last Filed Vital Signs Vital Sign Reading Time Taken Comments Blood Pressure 127/78 10/24/2024 10:25 AM CDT Pulse 91 10/24/2024 10:25 AM CDT Temperature 36.6 C (97.9 F) 10/24/2024 10:25 AM CDT Respiratory Rate 20 10/24/2024 10:2 5 AM CDT Oxygen Saturation 92% 10/24/2024 10: 25 AM CDT Inhaled Oxygen Concentration - - Weight 126.6 kg (279 lb 3.2 oz) 025 10:25 AM CDT Height 172.7 cm (5' 8) 10/24/2024 10:2 5 AM CDT Body Mass Index 42.45 10/24/2024 10:25 AM CDT documented in this encounter Progress Notes * Juhi Serrano APRN SENIOR ACCOUNT EXECUTIVE - 10/24/2024 10:30 AM CDT Assessment & Plan Bilateral cellulitis of lower leg: - Cutaneous infection of the leg, currently improving with oral Keflex. No evidence of systemic involvement (afebrile, chills, or body aches). - Continue Keflex 4 times daily for 10 days. Keep wounds clean and exposed to air as appropriate. Monitor for signs of worsening infection, including fever, chills, body aches, proximal spread, or purulent drainage. Advised to return to the emergency room if systemic symptoms or worsening local infection occur. Updated photos in media tab. Carpal tunnel syndrome: - Carpal tunnel syndrome, surgical intervention planned for next week. - Proceed with planned carpal tunnel surgery as discussed with surgeon. Cervical spinal canal narrowing with upper extremity numbness: - Cervical spinal canal stenosis with associated upper extremity numbness. Neurosurgical evaluationand possible intervention under consideration. - Referral to ingredient specialist for evaluation. Discussed possible management options including injections or surgical intervention. Patient to follow up with neurosurgeon to determine best course of action. MED REC REQUIRED Post Medication Reconciliation Status: patient was not discharged from an inpatient facility or TCU The longitudinal plan of care for the diagnosis(es)/condition(s) as documented were addressed during this visit. Due to the added complexity in care, I will continue to support Sumeet in the subsequentmanagement and with ongoing continuity of care. Subjective Sumeet is a 64 year old, presenting for the following health issues: Hospital F/U 10/24/2024 10:23 AM Additional Questions Roomed by Ade CASTANEDA Sumeet Devi, 64 years old, reports having a skin infection on his leg, for which he was prescribed Keflex after visiting the emergency room two days ago. He has been taking the antibiotic four times a day for 10 days. He notes that the infection does not seem to be worsening, but improvement is slow. He has not experienced fever, chills, or body aches, which were mentioned as potential symptoms of worsening infection. He is considering carpal tunnel surgery and has been experiencing numbness in his arm due to narrowing in the spinal canal. He is exploring options for injections to alleviate the pressure. 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 He is currently relying on Social Security Disability Insurance (SSDI) for income, which is insufficient to cover his expenses. He recently purchased a [employer] G4 car on August 17 and is concerned about making payments due to his financial situation. ED/UC Followup: Facility: [facility] Emergency Dept Date of visit: 10/21/2024 Reason for visit: Cellulitis of left lower leg Current Status: Patient states he does not feel 100% but he feels better. Objective BP 127/78 (BP Location: Right arm, Patient Position: Sitting, Cuff Size: Adult Large) Pulse 91 Temp 97.9 ??F (36.6 ??C) (Tympanic) Resp 20 Ht 1.727 m (5' 8) Wt 126.6 kg (279 lb 3.2 oz) SpO2 92% BMI 42.45 kg/m?? Body mass index is 42.45 kg/m??. Physical Exam GENERAL: alert and no distress RESP: lungs clear to auscultation - no rales, rhonchi or wheezes CV: regular rate and rhythm, normal S1 S2, no S3 or S4, no murmur, click or rub, no peripheral edema SKIN: See media tab for images of bilateral lower extremity cellulitis. Signed Electronically by: Juhi Serrano APRN CNP * Krissy Carey MA - 10/24/2024 10:30 AM CDT Covered the wound with: telfa dressing pads that lay over the open wounds where skin has broken open. Wrap or Cover the wound dressing with: Gauze and Other: stretch wrap around the left grimaldo leg. Explained to the patient to uncover and review skin for infection daily Sean turcios documented in this encounter Plan of Treatment Upcoming Encounters Date Type Department Care Team (Late st Contact Info) Description 12/11/2024 2:10 PM CDT Therapy Visit [facility] [address] [phone] Shanta Cooper, MOIZ 12/14/2024 11:20 AM CDT Office Visit [facility] [address] [place] [address] [place] [phone] Lizet Mann PA-C [address] [place], [place] [address] [address] 12/17/2024 2:10 PM CDT Office Visit [facility] [place] [address] [place] [address] [address] [place] [phone] Richard Kam MD [address] [place] [address] 12/19/2024 8:20 AM CDT Therapy Visit [place] [address] [place] [phone] Shanta Cooper, PT 12/24/2024 5:00 PM CDT Therapy Visit [place] [address] [place] [phone] Pattie Casillas, PT 12/25/2024 10:20 AM CDT Therapy Visit [place] [address] [place] [phone] Shanta Cooper, PT 01/03/2025 1:00 PM CDT Office Visit [address] [phone] [facility] [address] [place] [address] 01/03/2025 1:30 PM CDT Office Visit [address] [phone] [place] [address] [place] [address] 01/08/2025 1:15 PM CDT Office Visit [address] [address] Hakeem Chacko MBBS [address] [place] [address] Scheduled Procedures Name Priority Associated Diagnoses Date/Ti [...] for health insurance by looking in to [employer] and talking with a FRW. Completed 3. I will look for a new job and will access resources that the [employer] offers. . Sarted new job 4. Continue [...] will work with FRW in applying for [facility] assistance and to see if I qualify for Medicaid. I need to ask spouse what her income is as it goes by household income. 2. I will contact [employer] [facility] to ask about medicare plans and if there are saving programs I qualify for by by calling [phone]. 3. I will see if I am eligible for unemployment after losing my job. I will call [phone] to ask for assistance with unemployment application. 4. I will apply for jobs. I will work with [employer] in finding a job ([employer].) 5. I will access [employer] and ask about financial resources (such as [...] I will continue working with therapist at [facility]. 2. I will establish with Psychiatry. Planning to schedule with Ronnie. 3. I will meet with community typing office worker Manjula Gresham. 4. I will look in to attending an IOP program. I will discuss with my [place] [facility] therapist and number provided for [facility] Behavioral Access - [phone] to schedule assessment fr IOP program. 5. I will go to [facility] if I have concerning mental health symptoms. 6. I will access [facility] Crisis if needed by calling [phone]. 7. I will consider calling [facility] Adult Mental health intake at [phone]. documented as of this encounter Visit Diagnoses Diagnosis Bilateral cellulitis of lower leg- Primary Cellulitis and abscess of leg, except foot Carpal tunnel syndrome of right wrist Carpal tunnel syndrome Cervical spinal stenosis Spinal stenosis in cervical region documented in this encounter Additional Health Concerns [...] accurate information and submit it to the [facility]. 3. I will update CCC Team at outreach. Health Maintenance Due or Overdue 12/16/2023 Patient expresses financial resource strain 12/13 Mental Health Symptoms Need Improvement 04/05/19 25 Assessment Noted Time PHQ-9 Depression Total Score: 7 09/28/19 25 11:01 AM CDT documented as of this encounter Care Teams Supervisor Typesetting Relationship Specialty [place] [address] [place] [address] PCP - General Family Practice 07/11/14 [place] [address] [place] [address] Assigned PCP 12/16/11 Christy Campuzano PA-C [address] [place] [address] 225112 Referring Physician Family Medicine 04/22/20 Hans Cannon MD [address] [place] [address] 685592 Resident Pulmonary Disease 04/22/20 Estella Hassan, [facility] [address] [place] [address] Pharmacist Pharmacist 05/26/20 Elaina Moreno MD [address] [place], [place] 073725 Cardiovascular & Thoracic Surgery 08/06/20 John Webb MD [address] 767865 Cardiovascular Disease 08/25/21 John Webb MD [address] 765665 Cardiovascular Disease 08/25/21 Estella Hassan, [facility] [address] [place] [address] Assigned MTM Pharmacist 12/09/21 Lindsay Carey OD [address] [facility] [place] [address] Ophthalmology 01/29/22 Richard Kam MD [address] [place] [address] Assigned Musculoskeletal Provider 08/14/22 [place] [address] [address] Assigned Neuroscience Provider 01/01/23 12/03/24 Rosemarie Mcdowell, RN Improvement Analyst Diabetes Education 03/17/23 Mitra Kendall, TRANSPORT PILOT Lead Ballpoint Pen Cartridge Tester Primary Care - CC 12/12/23 Lizet Mann PA-C [address] [place] [address] Assigned Cancer Care Provider 01/04/24 Ravi Brownlee MD 420 [facility] 276 [place], [place] [address] Assigned Pulmonology Provider 01/04/24 Manuel Ahn OD [address] [place] [address] Supervising Deputy 01/05/24 Thalia Charles [facility] [address] [place], [place] [id number] Pharmacist Pharmacy 01/26/24 Gaurav Valenzuela APRN SENIOR ACCOUNT EXECUTIVE [address] [facility] 106 [place], [place] 043854 Assigned Sleep Provider 02/04/24 Debbie Mann MD 1600 [facility] [address] [place], [place] [phone] Cardiovascular Disease 02/24/24 Hakeem Chacko MBBS [address]45 [place] [address] Assigned Rheumatology Provider 04/05/24 Debbie Mann MD 1600 [facility] 200 [place] [address] Assigned Heart and Vascular Provider 05/06/24 Timothy Tejada MD [address] [facility] [place] [address] MD Ophthalmology 05/29/24 Timothy Tejada MD [address] [facility] [address] Assigned Surgical Provider 06/03/24 Elsie Roberts APRN SENIOR ACCOUNT EXECUTIVE 1600 [facility] 101 [place] [address] Nurse Practitioner Pain Medicine 10/16/24 documented as of this encounter
--- OUTSIDE RECORDS SUMMARY | 2024-10-25 07:40 | XMS_ITS | Encounter Summary ---
Author Organization [place] Address [address] [place] [address] Care Team Providers Care Dieing Out Machine Operator Name Role Phone Va Glez MD Primary Care Provider Va Glez MD Unavailable Christy CampuzanoC Unavailable [phone] Hans Cannon MD Unavailable [phone] Estella Hassan [facility] Unavailable Josh Cordero MD, Madhuri Unavailable [phone] John Webb MD Unavailable John Webb MD Unavailable Estella Hassan [facility] Unavailable Lindsay Carey OD Unavailable Richard Kam MD Unavailable Gaby Vila DO Unavailable [phone] Rosemarie Mcdowell RN Unavailable Mitra Kendall CURRENCY EXCHANGE SPECIALIST Unavailable [phone] Lizet Mann PA-C Unavailable [phone] Ravi Brownlee MD Unavailable [phone] Manuel Ahn OD Unavailable Thalia Charles [facility] Unavailable Gaurav Valenzuela ORACLE DATABASE MANAGER METAL HANDLER Unavailable [phone] Debbie Mann MD Unavailable [phone] Hakeem Chacko MB Unavailable Debbie Mann MD Unavailable [phone] Timothy Tejada MD Unavailable [phone] Timothy Tejada MD Unavailable [phone] Elsie Roberts Jennifer ORACLE DATABASE MANAGER METAL HANDLER Unavailable + Reason for Visit * Rehab Therapy Physical Therapy (Routine: Next available opening) - Closed Specialty Diagnoses / Procedures Referred By Mireille gonzalez Referred To Contact Physical Therapy Diagnoses Primary osteoarthritis of right knee Chronic pain of right knee [address] [address] Phone: tel: Referral ID Status Reason Start Date Expiration Date Visits Re quested Visits Authorized [id number] Closed 09/17/2024 12/10/2024 8 8 Encounter Details Date Type Department Care Team (Latest Contact Info) Description 10/25/2024 7:40 AM CDT Therapy Visit [facility] [address] [address] Pattie Casillas, PT Arthritis of knee (Primary Dx); Primary osteoarthritis of right knee Social History Tobacco Use [...] Answer Date Recorded PHQ-2 Score 2 09/27/2024 [facility] - [...] file Legal 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 Gender Identity Not on file Sexual Orientation Not on file Occupation Industry Job Start Date Job End Date Not on file Not on file Not on file Not on file documented as of this encounter Plan of Treatment Upcoming Encounters Date Type Department Care Team (Late st Contact Info) Description 12/11/2024 2:10 PM CDT Therapy Visit [address] [phone] Shanta Cooper, PT 12/14/2024 11:20 AM CDT Office Visit [address] [phone] Lizet Mann PA-C [address] [place] [address] 12/17/2024 2:10 PM CDT Office Visit [facility] [address] [place] [phone] Richard Kam MD [address] [place] [address] 613325 12/19/2024 8:20 AM CDT Therapy Visit [address] [place] [phone] Shanta Cooper, PT 12/24/2024 5:00 PM CDT Therapy Visit M [address] [place] [phone] Pattie Casillas, PT 12/25/2024 10:20 AM CDT Therapy Visit [facility] [address] [place] [address] 290 [place] [phone] Shanta Cooper, PT 01/03/2025 1:00 PM CDT Office Visit [address] [phone] Estella Hassan, [facility] 3033 [place] [address] 01/03/2025 1:30 PM CDT Office Visit [address] [phone] [place] [address] [place] [address] 01/08/2025 1:15 PM CDT Office Visit [facility] [address] [place] [address] 200 [place] [address] Hakeem Chacko MBBS [address] [place] [address] Scheduled Procedures Name Priority Associated Diagnoses Date/Ti me INJECTION, EPIDURAL, TRANSFO RAMINAL APPROACH Cervical radiculitis RELEASE, CARPAL TUNNEL, ENDOSCOPIC Right carpal tunnel syndrome documented as of this encounter Goals Goal Patient Goal Type Associated Problems Recent Progress Patient-Stated? Author Health Maintenance Care Plan HP GENERAL PROBLEM 100%(10/29/19 10:17 AM CDT) No Mitra Kendall, CURRENCY EXCHANGE SPECIALIST Note: Update on 05/25/22 Barriers: Currently without [...] for health insurance by looking in to [employer] and talking with a FRW. Completed 3. I will look for a new job and will access resources that the [employer] offers. . Sarted new job 4. [...] resource strain 40%( 5 3:13 PM CDT) No Mitra Kendall LSW Note: Barriers: Financial stressors Strengths: I am working, I receive Social Security Disability Patient expressed understanding of goal: Yes Action steps to achieve this goal: 1. I will work with FRW in applying for [facility] assistance and to see if I qualify for Medicaid. I need to ask spouse what her income is as it goes by household income. 2. I will contact [facility] to ask about medicare plans and if there are saving programs I qualify for by by calling [phone]. 3. I will see if I am eligible for unemployment after losing my job. I will call [phone] to ask for assistance with unemployment application. 4. I will apply for jobs. I will work with [facility] in finding a job ([employer].) 5. I will access [employer] and ask about financial resources (such as [...] I will continue working with therapist at [facility]. 2. I will establish with Psychiatry. Planning to schedule with Ronnie. 3. I will meet with community willow worker Manjula Gresham. 4. I will look in to attending an IOP program. I will discuss with my [place] [facility] therapist and number provided for [facility] Behavioral Access - [phone] to schedule assessment fr IOP program. 5. I will go to [facility] if I have concerning mental health symptoms. 6. I will access [facility] Crisis if needed by calling [phone]. 7. I will consider calling [facility] Adult Mental health intake at [phone]. documented as of this encounter Visit Diagnoses Diagnosis Arthritis of knee- Primary Unspecified arthropathy, lower leg Primary osteoarthritis of right knee Primary localized osteoarthrosis, lower leg documented in this encounter Additional Health Concerns [...] and submit it to the [facility]. 3. I will update CCC Team at outreach. Health Maintenance Due or Overdue 12/16/2023 Patient expresses financial resource strain 12/13 Mental Health Symptoms Need Improvement 04/05/19 Assessment Noted Time PHQ-9 Depression Total Score: 7 09/28/19 25 11:01 AM CDT documented as of this encounter Care Teams Dieing Out Machine Operator Relationship Specialty [place] [address] [place] [address] PCP - General Family Practice 07/11/14 [place] [address] [place] [address] Assigned PCP 12/16/11 Christy Campuzano PA-C [address] [place] [address] 211172 Referring Physician Family Medicine 04/22/20 Hans Cannon MD [address] [place] [address] [id number] Resident Pulmonary Disease 04/22/20 Estella Hassan, [facility] 30[address] [facility] [place] [address] Pharmacist Pharmacist 05/26/20 Elaina Moreno MD 909 [place] [address] Cardiovascular & Thoracic Surgery 08/06/20 John Webb MD [address] [place] [address] Cardiovascular Disease 08/25/21 John Webb MD [address] [place] 459385 Cardiovascular Disease 08/25/21 Estella Hassan, [facility] [address] [place] [address] Assigned MTM Pharmacist 12/09/21 Lindsay Carey OD [address] [facility] [place] [address] Ophthalmology 01/29/22 Richard Kam MD [address] [place] [address] Assigned Musculoskeletal Provider 08/14/22 [place] [address] [address] PENA, [address] [address] Assigned Neuroscience Provider 01/01/23 12/03/24 Rosemarie Mcdowell, RN Vehicle Controls Engineer Diabetes Education 03/17/23 Mitra Kendall, CURRENCY EXCHANGE SPECIALIST Lead Shop Helper Primary Care - CC 12/12/23 Lizet Mann PA-C [address] [place] [address] Assigned Cancer Care Provider 01/04/24 Ravi Brownlee MD 420 [facility] 276 [place] [address] Assigned Pulmonology Provider 01/04/24 Manuel Ahn OD [address]341 [place] [address] Railway Traction Line Worker 01/05/24 Thalia Charles, [facility] [address] [place], [place] [phone] Pharmacist Pharmacy 01/26/24 Gaurav Valenzuela APRN METAL HANDLER [address] [facility] [address] [place] [address] Assigned Sleep Provider 02/04/24 Debbie Mann MD 1600 [facility] 200 [place], [place] [phone] Cardiovascular Disease 02/24/24 Hakeem Chacko MBBS [address] [place] [address] Assigned Rheumatology Provider 04/05/24 Debbie Mann MD 1600 [facility] 200 [place] [address] Assigned Heart and Vascular Provider 05/06/24 Timothy Tejada MD 6341 [place] [address] Ophthalmology 05/29/24 Timothy Tejada MD [address]341 [place] [address] Assigned Surgical Provider 06/03/24 Elsie Roberts APRN METAL HANDLER [address] [address] Nurse Practitioner Pain Medicine 10/16/24 documented as of this encounter
--- OUTSIDE RECORDS SUMMARY | 2024-10-28 19:49 | XMS_ITS | Encounter Summary ---
Author Organization [facility] Address [address] [place] [address] Care Team Providers Care Distributor Publications Name Role Phone Va Glez MD Primary Care Provider Va Glez MD Unavailable Christy CampuzanoC Unavailable [phone] Hans Cannon MD Unavailable Estella Hassan [facility] Unavailable Josh Cordero MD, Madhuri Unavailable [phone] John Webb MD Unavailable [phone] John Webb MD Unavailable [phone] Estella Hassan [facility] Unavailable [phone] Lindsay Carey OD Unavailable [phone] Richard Kam MD Unavailable Gaby Vila DO Unavailable [phone] Rosemarie Mcdowell RN Unavailable Mitra Kendall GOAT HERDER Unavailable [phone] Lizet Mann PA-C Unavailable Ravi Brownlee MD Unavailable Manuel Ahn OD Unavailable Thalia Charles [facility] Unavailable Gaurav Valenzuela INFORMATION CLERK CASHIER NETWORKING SPECIALIST Unavailable Debbie Mann MD Unavailable Hakeem Chacko MB Unavailable Debbie Mann MD Unavailable [phone] Timothy Tejada MD Unavailable [phone] Timothy Tejada MD Unavailable [phone] Alejandra Elsie Jennifer INFORMATION CLERK CASHIER NETWORKING SPECIALIST Unavailable + Reason for Visit * Reason Comments Wound Check Encounter Details Date Type Department Care Team (Late st Contact Info) Description 10/28/2024 7:49 PM CDT - 10/28/2024 9:37 PM CDT Emergency [facility] Emergency Dept [address] [place] [phone] Chandan Chauhan MD EMERGENCY PHYSICIAN PA [address] [place], [place] [phone] Bilateral lower leg cellulitis (Primary Dx) Discharge Disposition: Home or Self Care Social [...] re latives? Once a week 09/27/2024 Attends Sikh Services Not on file 09/27 Active Member [...] Answer Date Recorded PHQ-2 Score 2 09/27/2024 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 Gender Identity Not on file Sexual Orientation Not on file Occupation Industry Job Start Date Job End Date Not on file Not on file Not on file Not on file documented as of this encounter Last Filed Vital Signs Vital Sign Reading Time Taken Comments Blood Pressure 108/79 10/28/2024 9:31 PM CDT Pulse 71 10/28/2024 9:31 PM CDT Temperature 37 C (98.6 F) 10/28/2024 7:33 PM CDT Respiratory Rate 18 10/28/2024 7:33 PM CDT Oxygen Saturation 100% 10/28/2024 7:33 PM CDT Inhaled Oxygen Concentration - - Weight 128.7 kg (283 lb 11.7 oz) 10/28/2024 7:33 PM CDT Height 172.7 cm (5' 8) 10/28/2024 7:33 PM CDT Body Mass Index 43.14 10/28/2024 7:33 PM CDT documented in this encounter Discharge Instructions * Attachments The following attachments cannot be sent through Care Everywhere. * Cellulitis (Armenian) documented in this encounter Medications at Time [...] MOUTH EVERY DAY 180 tablet 1 09/28/2024 ipratropium - albuterol 0.5 mg/2.5 mg, 3mg,/3 mL (DUONEB) 0.5-2.5 (3) MG/3ML neb solutionIndication s:SOB (shortness of breath),Moderate persistent asthma without complication INHALE 3 MLS VIA NEBULIZER 4 TIMES A DAY NEEDED 270 mL 1 10/25/2024 metFORMIN (GLUCOPHAGE XR) 500 MG 24 hr tablet Take 4 tablets (2,000 mg) by mouth daily (with dinner). 360 tablet 1 03/08/2024 pioglitazone (ACTOS) 15 MG tabletIndications: Type 2 diabetes mellitus with hyperglycemia, without long-term current use of insulin (H) Take 1 tablet (15 mg) by mouth daily. 90 tablet 1 06/28/2024 albuterol (PROAIR HFA/PROVENTIL HFA/VENTOLIN HFA) 108 (90 Base) MCG/ACT inhalerIndications :Exacerbation of asthma, unspecified asthma severity, unspecified whether persistent Inhale 2 puffs into the lungs every 6 hours as needed for shortness of breath, wheezing or cough. 54 g 3 09/28/2024 11/06/19 25 azelastine 137 MCG/SPRAY SOLN Avella 1 spray into both nostrils daily. 10/23/2024 11/05/19 25 blood glucose monitoring (NO BRAND SPECIFIED) [...] 10 days. 40 capsule 10/21/2024 11/02/19 25 clindamycin (CLEOCIN) 300 MG capsule Take 1 capsule (300 mg) by mouth 3 times daily for 7 days. 21 capsule 10/28/2024 11/02/19 25 DULoxetine (CYMBALTA) 30 MG capsule Take 30 mg by mouth daily. 09/05/2024 11/05/19 25 fluticasone (FLONASE) 50 MCG/ACT nasal sprayIndications:S easonal allergic rhinitis, unspecified trigger Avella 1 spray into both nostrils daily. 16 g 5 03/28/2024 11/05/19 25 gabapentin (NEURONTIN) 300 MG capsuleIndications :Anterolisthesis of cervical spine,Retrolisthes is,Cervical radiculopathy Take 2 capsules (600 mg) by mouth 2 times daily. 360 capsule 3 10/12/2024 11/16/19 25 methylPREDNISolone (MEDROL DOSEPAK) 4 MG tablet therapy packIndications:Ri ght carpal tunnel syndrome,Cervical radiculopathy Follow Package Directions 21 tablet 10/22/2024 11/05/19 25 ondansetron (ZOFRAN) 4 MG tabletIndications: Nausea Take 1 tablet (4 mg) by mouth every 8 hours as needed for nausea. 30 tablet 10/12/2024 11/05/19 25 triamcinolone (KENALOG) 0.1 % external creamIndications:I tching of both hands Apply topically 2 times daily. 30 g 1 02/10/2024 11/05/19 25 documented as of this encounter ED Notes * Chandan Chauhan MD - 10/28/2024 8:52 PM CDT History Chief Complaint: Wound Check HPI Peter Devi is a 64 year old male here for recheck of his lower leg scabs blistering he was seen on the pictures reviewed in the chart was prescribed cephalexin he is not sure but he does not think he has been taking the antibiotics except for the last 2 to 4 days he was seen by his PCP wound check done he just thought that maybe the left leg was a little bit more warm tonight and wanted him rechecked no fever no nausea no vomiting no chest pain no shortness of breath is ambulatory does not recall any bites no environmental exposures. Discussed care I think that he is left the bandages on from the until his PCP visit and the ones from the PCP visit until today Independent Historian: Review of External Notes: ER note 10/21/2024 PCP visit 10/24/2024 Medications: acetaminophen (TYLENOL) 500 MG tablet albuterol (PROAIR HFA/PROVENTIL HFA/VENTOLIN HFA) 108 (90 Base) MCG/ACT inhaler atorvastatin (LIPITOR) 40 MG tablet blood glucose monitoring (NO BRAND SPECIFIED) meter device kit budesonide (PULMICORT) 0.5 MG/2ML neb solution cephALEXin (KEFLEX) 500 MG capsule clindamycin (CLEOCIN) 300 MG capsule diclofenac (VOLTAREN) 1 % topical gel DULoxetine (CYMBALTA) 30 MG capsule fluticasone (FLONASE) 50 MCG/ACT nasal spray gabapentin (NEURONTIN) 300 MG capsule glipiZIDE (GLUCOTROL XL) 10 MG 24 hr tablet ipratropium - albuterol 0.5 mg/2.5 mg, 3mg,/3 mL (DUONEB) 0.5-2.5 (3) MG/3ML neb solution metFORMIN (GLUCOPHAGE XR) 500 MG 24 hr tablet methylPREDNISolone (MEDROL DOSEPAK) 4 MG tablet therapy pack ondansetron (ZOFRAN) 4 MG tablet pioglitazone (ACTOS) 15 MG tablet triamcinolone (KENALOG) 0.1 % external cream Past Medical History: Past Medical History: Diagnosis Date Arthritis [...] (H) 03/26/2016 Obesity 03/15/2014 Past Surgical History: Past Surgical History: Procedure Laterality Date DAVINCI EXCISE NODES THORACIC Right 07/23/2020 Procedure: ROBOT-ASSISTED mediastinal cyst excision; Surgeon: Elaina Moreno MD; Location: [facility] OR TOE SURGERY age 16 Physical Exam Patient Vitals for the past 24 hrs: BP Temp Temp src Pulse Resp SpO2 Height Weight 10/28/24 1933 (!) 156/83 98.6 ??F (37 ??C) Temporal 68 18 100 % 1.727 m (5' 8) 128.7 kg (283 lb 11.7 oz) Physical Exam General: Patient is well appearing. No distress. Head: Atraumatic. Eyes: Conjunctivae and EOM are normal. No scleral icterus. Neck: Normal range of motion. Neck supple. Cardiovascular: Normal rate, regular rhythm, normal heart sounds and intact distal pulses. Pulmonary/Chest: Breath sounds normal. No respiratory distress. Abdominal: Soft. Bowel sounds are normal. No distension. No tenderness. No rebound or guarding. Musculoskeletal: Normal range of motion. Skin: Chin area has area of scabs areas of redness raised no fluctuance there is some blistering there is redness slight warmth there is no fluctuance there is no ascending lymphangitis the foot and toes have no lesions he is ambulatory without difficulty there is no tenderness or tenseness to the lower legs Emergency Department Course ECG Imaging: No orders to display Laboratory: Labs Ordered and Resulted from Time of ED Arrival to Time of ED Departure BASIC METABOLIC PANEL (LIMITED OCCURRENCES) - Abnormal Result Value Sodium 144 Potassium 4.1 Chloride 106 Carbon Dioxide (CO2) 26 Anion Gap 12 Urea Nitrogen 18.6 Creatinine 0.72 GFR Estimate >90 Calcium 9.1 Glucose 198 (*) CBC WITH PLATELETS AND DIFFERENTIAL - Abnormal WBC Count 7.85 RBC Count 4.70 Hemoglobin 13.4 Hematocrit 39.0 (*) MCV 83.0 MCH 28.5 MCHC 34.4 RDW 13.4 Platelet Count 191 % Neutrophils 76.4 % Lymphocytes 14.1 % Monocytes 7.8 % Eosinophils 1.1 % Basophils 0.3 % Immature Granulocytes 0.3 NRBCs per 100 WBC 0.0 Absolute Neutrophils 6.00 Absolute Lymphocytes 1.11 Absolute Monocytes 0.61 Absolute Eosinophils 0.09 Absolute Basophils <0.03 Absolute Immature Granulocytes <0.03 Absolute NRBCs <0.03 LACTIC ACID WHOLE BLOOD WITH 1X REPEAT IN 2 HR WHEN >2 - Normal Lactic Acid, Initial 1.4 BLOOD CULTURE BLOOD CULTURE Procedures Emergency Department Course & Assessments: Interventions: Medications - No data to display Assessments: Independent Interpretation (X-rays, CTs, rhythm strip): Consultations/Discussion of Management or Tests: Social Drivers of Health affecting care: Disposition: The patient was discharged. Impression & Plan Medical Decision Making: Comparing the anterior grimaldo wounds to the pictures from 810 there is not much change nor improvement or worsening I think we have a couple issues here 1 is hygiene he has not been showering or washing his legs 2 his bandage changes he put we put them on he leaves the til doctor's office takes him off 3 cephalexin is a good choice but we might need to expand his coverage so cannot start clindamycin at this time there is not appear to be any abscess lab work was reviewed he does not look septic ill CBC and differential and lactate are very reassuring as his metabolic send BMP. He does not recall any bites or any environmental exposures that would require different antibiotics I recommended that he needs to be his own advocate wash and take care of his legs well but also talk to his PCP about repeat visits for resolve of these wounds follow-up discussed Diagnosis: ICD-10-CM 1. Bilateral lower leg cellulitis L03.116 L03.115 Discharge Medications: New Prescriptions CLINDAMYCIN (CLEOCIN) 300 MG CAPSULE Take 1 capsule (300 mg) by mouth 3 times daily for 7 days. 10/28/2024 Chandan Chauhan MD Stevens, Andrew C, MD 10/28/242115 * Jayshree Phillips RN - 10/28/2024 7:32 PM CDT Here on 10/21 - dx with left leg cellulitis. Has been taking abx as prescribed. Got super hot and weak today. Took tylenol last at 1830. Hasn't unwrapped leg in 2 days. Unwrapped leg in triage, according to pt, cellulitis looks the same as on 10/21. documented in this encounter Plan of Treatment Upcoming Encounters Date Type Department Care Team (Late st Contact Info) Description 12/11/2024 2:10 PM CDT Therapy Visit [facility] Rehabilitation Services [address] [place] [phone] Shanta Cooper, PT 12/14/2024 11:20 AM CDT Office Visit [address] [phone] Lizet Mann PA-C [address] [place] [address] 12/17/2024 2:10 PM CDT Office Visit [facility] [address] [place] [address] 4th [place] [phone] Richard Kam MD [address] [place] [address] 12/19/2024 8:20 AM CDT Therapy Visit [address] [phone] Shanta Cooper, PT 12/24/2024 5:00 PM CDT Therapy Visit [address] [phone] Pattie Casillas, PT 12/25/2024 10:20 AM CDT Therapy Visit [address] [phone] Shanta Cooper, PT 01/03/2025 1:00 PM CDT Office Visit [address] [phone] Estella Hassan, [facility] [address] [place] [address] 01/03/2025 1:30 PM CDT Office Visit [address] [phone] [place] [id number] [place] [address] 01/08/2025 1:15 PM CDT Office Visit [address] [phone] Hakeem Chacko MBBS [address] [place] [address] Scheduled Procedures Name Priority Associated Diagnoses Date/Ti [...] for health insurance by looking in to [employer] and talking with a FRW. Completed 3. I will look for a new job and will access resources that the [employer] offers. . Sarted new job 4. Continue to use Single [facility] to reduce the cost of my prescriptions. Create an action plan to increase financial stability Care Plan Patient expresses financial resource strain No Josefina aPtel Become up-to-date with health maintenance visit(s) Care [...] by household income. 2. I will contact [facility] to ask about medicare plans and if there are saving programs I qualify for by by calling [phone]. 3. I will see if I am eligible for unemployment after losing my job. I will call [phone] to ask for assistance with unemployment application. 4. I will apply for jobs. I will work with [employer] in finding a job (Empowerment.) 5. I will access [employer] and ask about financial resources (such as [...] I will continue working with therapist at [facility]. 2. I will establish with Psychiatry. Planning to schedule with Ronnie. 3. I will meet with community grain oilseed or pasture farm worker Manjula Gresham. 4. I will look in to attending an IOP program. I will discuss with my [place] mental [facility] therapist and number provided for [facility] Behavioral Access - [phone] to schedule assessment fr IOP program. 5. I will go to [facility] if I have concerning mental health symptoms. 6. I will access [facility] if needed by calling [phone]. 7. I will consider calling [facility] Adult Mental health intake at [phone]. documented as of this encounter Procedures Procedure Name Priority Date/Time Associated Diagnosis Comments BLOOD CULTURE STAT 10/28/2024 9:04 PM CDT EXTRA TUBE STAT 10/28/2024 8:06 PM CDT EXTRA RED TOP TUBE STAT 10/28/2024 8: 06 PM CDT EXTRA BLUE TOP TUBE STAT 10/28/2024 8 :06 PM CDT LACTIC ACID WHOLE BLOOD WITH 1X REPEAT IN 2 HR WHEN >2 STAT 10/28/2024 8:06 PM CDT CBC WITH PLATELETS AND DIFFERENTIAL STAT 10/28/2024 8:06 PM CDT CBC WITH PLATELETS AND DIFFERENTIAL (LIMITED OCCURRENCES) STAT 10/28/2024 8:06 PM CDT BASIC METABOLIC PANEL (LIMITED OCCURRENCES) STAT 10/28/2024 8:06 PM CDT BLOOD CULTURE STAT 10/28/2024 8:06 PM CDT documented in this encounter Results * Blood Culture Peripheral blood (BC) Arm, Left (10/28/2024 9:04 PM CDT) Culture No Growth 11/02/2024 10:46 PM CDT [facility] Peripheral blood (BC) STRUCTURE OF LEFT UPPER LIMB / Unknown Venipuncture / Unknown 10/28/2024 9:04 PM CDT 10/28/2024 9:08 PM CDT us Chandan Chauhan MD LAB - MICRO GENERAL ORDERABL ES Final Result [facility] Inf. Diseases Diag. Lab [address] [facility], [address] [place] [address], [facility] * Extra Red Top Tube (10/28/2024 8:06 PM CDT) Hold Specimen [facility] 10/28/2024 9:16 PM CDT [facility] Blood BLOOD SPECIMEN / Unknown Venipuncture / Unknown 10/28/2024 8:06 PM CDT 10/28/2024 8:13 PM CDT us Azucena Shane MD LAB - BLOOD ORDERABLES Final Result [facility] Care Lab [address] Lab (1st floor, no room number) [place] [address] * Extra Blue Top Tube (10/28/2024 8:06 PM CDT) Hold Specimen [facility] 10/28/2024 9:16 PM CDT [facility] Blood BLOOD SPECIMEN / Unknown Venipuncture / Unknown 10/28/2024 8:06 PM CDT 10/28/2024 8:13 PM CDT us Azucena Shane MD LAB - BLOOD ORDERABLES Final Result [facility] Acute Care Lab [address] Lab (1st floor, no room number) [place] [address], [facility] * (ABNORMAL) CBC with platelets and differential (10/28/2024 8:06 PM CDT) WBC Count 7.85 4.00 - 11.00 10e3/uL 10/28/2024 8:20 PM CDT [facility] RBC Count 4.70 4.40 - 5.90 10e6/uL 10/28/2024 8:20 PM CDT [facility] Hemoglobin 13.4 13.3 - 17.7 g/dL 10/28/2024 8:20 PM CDT [facility] Hematocrit 39.0(L) 40.0 - 53.0 % 10/28/2024 8:20 PM CDT [facility] MCV 83.0 78.0 - 100.0 fL 10/28/2024 8:20 PM CDT [facility] MCH 28.5 26.5 - 33.0 pg 10/28/2024 8:20 PM CDT [facility] MCHC 34.4 31.5 - 36.5 g/dL 10/28/2024 8:20 PM CDT [facility] RDW 13.4 10.0 - 15.0 % 10/28/2024 8:20 PM CDT [facility] Platelet Count 191 150 - 450 10e3/uL 10/28/2024 8:20 PM CDT [facility] % Neutrophils 76.4 % 10/28/2024 8:20 PM CDT [facility] % Lymphocytes 14.1 % 10/28/2024 8:20 PM CDT [facility] % Monocytes 7.8 % 10/28/2024 8:20 PM CDT [facility] % Eosinophils 1.1 % 10/28/2024 8:20 PM CDT [facility] % Basophils 0.3 % 10/28/2024 8:20 PM CDT [facility] % Immature Granulocytes 0.3 % 10/28/2024 8:20 PM CDT [facility] NRBCs per 100 WBC 0.0 <1.0 /100 025 8:20 PM CDT [facility] Absolute Neutrophils 6.00 1.60 - 8.30 10e3/uL 10/28/2024 8:20 PM CDT [facility] Absolute Lymphocytes 1.11 0.80 - 5.30 10e3/uL 10/28/2024 8:20 PM CDT [facility] Absolute Monocytes 0.61 0.00 - 1.30 10e3/uL 10/28/2024 8:20 PM CDT [facility] Absolute Eosinophils 0.09 0.00 - 0.70 10e3/uL 10/28/2024 8:20 PM CDT [facility] Absolute Basophils <0.03 0.00 - 0.20 10e3/uL 10/28/2024 8:20 PM CDT [facility] Absolute Immature Granulocytes <0.03 <=0.40 10e3/uL 10/28/2024 8:20 PM CDT [facility] Absolute NRBCs <0.03 10e3/uL 10/28/2024 8:20 PM CDT [facility] Blood BLOOD SPECIMEN / Unknown Venipuncture / Unknown 10/28/2024 8:06 PM CDT 10/28/2024 8:13 PM CDT Azucena Shane MD LAB - BLOOD ORDERABLES Final Result [facility] Acute Care Lab [address] Lab (1st floor, no room number) [place] [address] * Blood Culture Peripheral blood (BC) Arm, Right (10/28/2024 8:06 PM CDT) Culture No Growth 11/02/2024 10:46 PM CDT [facility] Peripheral blood (BC) STRUCTURE OF RIGHT UPPER LIMB / Unknown Venipuncture / Unknown 10/28/2024 8:06 PM CDT 10/28/2024 8:12 PM CDT Chandan Chauhan MD LAB - MICRO GENERAL ORDERABL ES Final Result [facility] Inf. Diseases Diag. Lab [address] [facility], [address] [place] [address], [facility] * Lactic Acid Whole Blood with 1X Repeat in 2 HR when >2 (10/28/2024 8:06 PM CDT) Lactic Acid, Initial 1.4 0.7 - 2.0 mmol/L 10/28/2024 8:14 PM CDT [facility] Blood BLOOD SPECIMEN / Unknown Venipuncture / Unknown 10/28/2024 8:06 PM CDT 10/28/2024 8:13 PM CDT Azucena Shane MD LAB - BLOOD ORDERABLES Final Result LABORATORY [facility] Acute Care Lab [address] Lab (1st floor, no room number) [place] [address] * (ABNORMAL) Basic Metabolic Panel (Limited Occurrences) (10/28/2024 8:06 PM CDT) Sodium 144 135 - 145 mmol/L 10/28/2024 8:44 PM CDT LABORATORY Potassium 4.1 3.4 - 5.3 mmol/L 10/28/2024 8:44 PM CDT LABORATORY Chloride 106 98 - 107 mmol/L 10/28/2024 8:44 PM CDT LABORATORY Carbon Dioxide (CO2) 26 22 - 29 mmol/L 10/28/2024 8:44 PM CDT LABORATORY Anion Gap 12 7 - 15 mmol/L 10/28/2024 8:44 PM CDT LABORATORY Urea Nitrogen 18.6 8.0 - 23.0 mg/dL 10/28/2024 8:44 PM CDT LABORATORY Creatinine 0.72 0.67 - 1.17 mg/dL 10/28/2024 8:44 PM CDT LABORATORY GFR Estimate >90 >60 mL/min/1.7 3m2 10/28/2024 8:44 PM CDT LABORATORY Comment:eGFR calculated us2020 CKD-EPI equation. Calcium 9.1 8.8 - 10.4 mg/dL 10/28/2024 8:44 PM CDT LABORATORY Glucose 198(H) 70 - 99 mg/dL 10/28/2024 8:44 PM CDT LABORATORY Blood BLOOD SPECIMEN / Unknown Venipuncture / Unknown 10/28/2024 8:06 PM CDT 10/28/2024 8:13 PM CDT us Azucena Shane MD LAB - BLOOD ORDERABLES Final Result LABORATORY [facility] Acute Care Lab [address] Lab (1st floor, no room number) [place] [address], [facility] documented in this encounter Visit Diagnoses Diagnosis Bilateral lower leg cellulitis- Primary Cellulitis and abscess of leg, except foot documented in this encounter Additional Health Concerns [...] documented as of this encounter Care Teams Distributor Publications Relationship Specialty [place] [address] [place] [address] PCP - General Family Practice 07/11/14 [place] [address] [place] [address] Assigned PCP 12/16/11 Christy Campuzano PA-C [address] [place] [address]852 Referring Physician Family Medicine 04/22/20 Hans Cannon MD [address] [place] [address] Resident Pulmonary Disease 04/22/20 Estella Hassan, [facility] [address] [place] [address] Pharmacist Pharmacist 05/26/20 Elaina Moreno MD [address] [place] [address] Cardiovascular & Thoracic Surgery 08/06/20 John Webb MD [address] [address] Cardiovascular Disease 08/25/21 John Webb MD [address] [id number] Cardiovascular Disease 08/25/21 Estella Hassan, [facility] [address] [place] [address] Assigned MTM Pharmacist 12/09/21 Lindsay Carey OD [address] [facility] [place] [address] Ophthalmology 01/29/22 Richard Kam MD [address] [place] [address] Assigned Musculoskeletal Provider 08/14/22 [place] [address] [place] [address] [address] 8[address] Assigned Neuroscience Provider 01/01/23 12/03/24 Rosemarie Mcdowell, RN Labor Service Representative Diabetes Education 03/17/23 Mitra [place], GOAT HERDER Lead Printed Circuit Board Designer Primary Care - CC 12/12/23 Lizet Mann PA-C [address] [place] [address] Assigned Cancer Care Provider 01/04/24 Ravi Brownlee MD [address] [facility] [address] [place], [place] [address] Assigned Pulmonology Provider 01/04/24 Manuel Ahn OD [address] [place], [place] [phone] Head Loft Worker 01/05/24 Thalia Charles [facility] [address] [place], [place] [phone] Pharmacist Pharmacy 01/26/24 Gaurav Valenzuela APRN NETWORKING SPECIALIST [address] [facility] [address] [place], [place] [address] Assigned Sleep Provider 02/04/24 Debbie Mann MD [address] [facility] [address] [place], [place] [phone] Cardiovascular Disease 02/24/24 Hakeem Chacko MBBS [address] [place] [address] Assigned Rheumatology Provider 04/05/24 Debbie Mann MD [address] [facility] [address] [place], [place] [phone] Assigned Heart and Vascular Provider 05/06/24 Timothy Tejada MD [address] [facility] [place] [address] Ophthalmology 05/29/24 Timothy Tejada MD [address] [facility] [place] [phone] Assigned Surgical Provider 06/03/24 Elsie Roberts APRN NETWORKING SPECIALIST [address] [address] Nurse Practitioner Pain Medicine 10/16/24 documented as of this encounter
--- OUTSIDE RECORDS SUMMARY | 2024-10-31 12:45 | XMS_ITS | Encounter Summary ---
Author Organization [facility] Address [address] [place] [address] Care Team Providers Care Engineering Tech Name Role Phone Va Glez MD Primary Care Provider [phone] Va Glez MD Unavailable Christy CampuzanoC Unavailable [phone] Hans Cannon MD Unavailable Estella Hassan [facility] Unavailable [phone] Josh Cordero MD, Madhuri Unavailable [phone] John Webb MD Unavailable [phone] John Webb MD Unavailable [phone] Estella Hassan [facility] Unavailable [phone] Lindsay Carey OD Unavailable [phone] Richard Kam MD Unavailable Gaby Vila DO Unavailable [phone] Rosemarie Mcdowell RN Unavailable [phone] Mitra Kendall DICTATING MACHINE TRANSCRIBER Unavailable [phone] Lizet Mann PA-C Unavailable [phone] Ravi Brownlee MD Unavailable [phone] Manuel Ahn OD Unavailable Thalia Charles [facility] Unavailable [phone] Gaurav Valenzuela NIGHT BAKER WEBSITE PROGRAMMER Unavailable [phone] Debbie Mann MD Unavailable [phone] Hakeem Chacko MB Unavailable Debbie Mann MD Unavailable [phone] Timothy Tejada MD Unavailable [phone] Timothy Tejada MD Unavailable [phone] Elsie Roberts NIGHT BAKER WEBSITE PROGRAMMER Unavailable + Reason for Visit * Reason Comments Oncology Clinic Visit Mass of chest Encounter Details Date Type Department Care Team (Late st Contact Info) Description 10/31/2024 12:45 PM CDT Oncology Visit [facility] [address] [facility] [place] [address] Marian Agustin APRN [facility] [address] [facility] [address] [place] [address] Mediastinal cyst (Primary Dx) Social History [...] re latives? 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 Gender Identity Not on file Sexual Orientation Not on file Occupation Industry Job Start Date Job End Date Not on file Not on file Not on file Not on file documented as of this encounter Last Filed Vital Signs Vital Sign Reading Time Taken Comments Blood Pressure 142/75 10/31/2024 12:52 PM CDT Pulse 84 10/31/2024 12:52 PM CDT Temperature 37 C (98.6 F) 10/31/2024 12:52 PM CDT Respiratory Rate 18 10/31/2024 12:52 PM CDT Oxygen Saturation 93% 10/31/2024 12:52 PM CDT Inhaled Oxygen Concentration - - Weight 129.3 kg (285 lb) 10/31/2024 12:52 PM CDT Height - - Body Mass Index 43.33 10/28/2024 7:33 PM CDT documented in this encounter Progress Notes * Marian Agustin, NESSA CABLE TELEVISION INSTALLER - 10/31/2024 12:45 PM CDT THORACIC SURGERY FOLLOW UP VISIT I saw Mr. Ta Devi in follow-up today. The clinical summary follows: PREOP DIAGNOSIS Mediastinal cyst PROCEDURE Robotic mediastinal cyst excision DATE OF PROCEDURE 08/01/20 COMPLICATIONS None Past Medical History: Diagnosis Date Arthritis of [...] UU OR TOE SURGERY age 16 Social History Socioeconomic History Marital status: Spouse name: Not on file Number of children: Not on file Years of education: Not on file Highest education level: Not on file Occupational History Employer: [employer] Riki Kwon Comment: financial strain, pt is trying to retire Tobacco Use Smoking status: Former Current packs/day: 0.00 Types: Cigarettes Quit date: 12/03/1983 Years since quittin.9 Passive exposure: Past Smokeless tobacco: Never Vaping Use Vaping status: Never Used Substance and Sexual Activity Alcohol use: Not Currently Comment: occ Drug use: No Sexual activity: Not Currently Other Topics Concern Parent/sibling w/ CABG, [place] or angioplasty before 65F 55M? Not Asked Social History Narrative Not on file Social Drivers of Health Financial Resource Strain: Low Risk (09/27/2024) Financial Resource Strain Within the past 12 months, have you or your family members you live with been unable to get utilities (heat, electricity) when it was really needed?: No Food Insecurity: Low Risk (09/27/2024) Food Insecurity Within the past 12 months, did you worry that your food would run out before you got money to buy more?: No Within the past 12 months, did the food you bought just not last and you didn???t have money to getmore?: No Transportation Needs: Low Risk (09/27/2024) Transportation Needs Within the past 12 months, has lack of transportation kept you from medical appointments, getting your medicines, non-medical meetings or appointments, work, or from getting things that you need?: No Physical Activity: Inactive (09/27/2024) Exercise Vital Sign Days of Exercise per Week: 0 days Minutes of Exercise per Session: 0 min Stress: No Stress Concern Present (09/27/2024) [employer] [employer] - Occupational Stress Questionnaire Feeling of Stress : Not at all Social Connections: Unknown (09/27/2024) Social Connection and Isolation Panel [NHANES] Frequency of Communication with Friends and Family: Not on file Frequency of Social Gatherings with Friends and Family: Once a week Attends Anabaptist Services: Not on file Active Member of Clubs or Organizations: Not on file Attends Club or Organization Meetings: Not on file Marital Status: Not on file Interpersonal Safety: Low Risk (08/15/2024) Interpersonal Safety Do you feel physically and emotionally safe where you currently live?: Yes Within the past 12 months, have you been hit, slapped, kicked or otherwise physically hurt by someone?: No Within the past 12 months, have you been humiliated or emotionally abused in other ways by your partner or ex-partner?: No Housing Stability: Low Risk (09/27/2024) Housing Stability Do you have housing? : Yes Are you worried about losing your housing?: No SUBJECTIVE Sumeet is doing ok. He is not sure what this visit is for-he says it just showed up on his My Chart and since he was in the area he figured he would keep the visit. He is asking if someone can wrap hislegs. He was recently in the ER for this and says they put some stuff on his wounds and wrapped hislegs but the dressings don't stay in place. OBJECTIVE BP (!) 142/75 Pulse 84 Temp 98.6 ??F (37 ??C) (Tympanic) Resp 18 Wt 129.3 kg (285 lb) SpO2 93% BMI 43.33 kg/m?? From a personal perspective, he is here alone today. IMPRESSION Ravi is a 63 year old male status post robotic mediastinal cyst excision. Final pathology was benign. I advised Sumeet to follow up with his PCP for ongoing wound care. I will have our nurse reach out toDr. Glez to see if we can help in getting him an appointment today or tomorrow. PLAN I spent 10 min on the date of the encounter in chart review, patient visit, review of tests, documentation and/or discussion with other providers about the issues documented above. I reviewed the plan as follows: Follow up with PCP today or tomorrow for wound check of both legs. No follow up with Thoracic Surgery is indicated at this time. All questions were answered and the patient and present family were in agreement with the plan. I appreciate the opportunity to participate in the care of your patient and will keep you updated. Sincerely, documented in this encounter Nursing Notes * Molly Bruner - 10/31/2024 12:45 PM CDT Oncology Rooming Note October 31, 2024 12:55 PM Peter Devi is a 64 year old male who presents for: Chief Complaint Patient presents with Oncology Clinic Visit Mass of chest Initial Vitals: BP (!) 142/75 Pulse 84 Temp 98.6 ??F (37 ??C) (Tympanic) Resp 18 Wt 129.3 kg (285 lb) SpO2 93% BMI 43.33 kg/m?? Estimated body mass index is 43.33 kg/m?? as calculated from the following: Height as of 10/28/24: 1.727 m (5' 8). Weight as of this encounter: 129.3 kg (285 lb). Body surface area is 2.49 meters squared. No Pain (0) Comment: no pain related to today's visit No LMP for male patient. Allergies reviewed: Yes Medications reviewed: Yes Medications: Medication refills not needed today. Pharmacy name entered into charity: water: [id number] [place], [place] - [address] [address] [facility] [place] [place] [address] [facility] [address] [facility] [id number] [id number] - [place], [place] - [address] [facility] [address] AT [facility] [address] & [facility] PHQ9: Did this patient require a PHQ9?: No Clinical concerns: No concerns related to today's visit. Molly Bruner LPN 10/31/2024 documented in this encounter Plan of Treatment Upcoming Encounters Date Type Department Care Team (Late st Contact Info) Description 12/11/2024 2:10 PM CDT Therapy Visit [facility] [address] [place] [phone] Shanta Cooper PT 12/14/2024 11:20 AM CDT Office Visit [address] [phone] Lizet Mann PA-C [address] [place] [address] 12/17/2024 2:10 PM CDT Office Visit [facility] [address] [facility] 4th [place] [phone] Richard Kam MD [address] [place] [address] 12/19/2024 8:20 AM CDT Therapy Visit [address] [phone] Shanta Cooper, PT 12/24/2024 5:00 PM CDT Therapy Visit [address] [address] Pattie Casillas, PT 12/25/2024 10:20 AM CDT Therapy Visit [address] [phone] Shanta Cooper, PT 01/03/2025 1:00 PM CDT Office Visit [address] [phone] Estella Hassan, [facility] [address] [place] [address] 01/03/2025 1:30 PM CDT Office Visit [address] [phone] [place] [id number] [place] [address] 01/08/2025 1:15 PM CDT Office Visit [address] [phone] Hakeem Chacko MBBS [address] [place] [address] Scheduled Procedures Name Priority Associated Diagnoses Date/Ti [...] resource strain 100%(10/29/19 10:17 AM CDT) No Mitar Kendall LSW Note: Updated on 05/25/22 Barriers: Currently not working.Doesn't have insurance Strengths: Getting SSD. Patient expressed understanding of goal: Action steps to achieve this goal: 1. I will apply for unemployment. Decided not to 2. I will explore my options for health insurance by looking in to [employer] and talking with a FRW. Completed 3. I will look for a new job and will access resources that the [employer] [facility] offers. . Sarted new job 4. [...] by household income. 2. I will contact [employer] to ask about medicare plans and if there are saving programs I qualify for by by calling [phone]. 3. I will see if I am eligible for unemployment after losing my job. I will call [phone] to ask for assistance with unemployment application. 4. I will apply for jobs. I will work with [employer] in finding a job (Empowerment.) 5. I will access [facility] and ask about financial resources (such as [...] I will continue working with therapist at [facility]. 2. I will establish with Psychiatry. Planning to schedule with Ronnie. 3. I will meet with community detention worker Manjula Gresham. 4. I will look in to attending an IOP program. I will discuss with my [place] mental Health therapist and number provided for [facility] - [phone] to schedule assessment fr IOP program. 5. I will go to [facility] if I have concerning mental health symptoms. 6. I will access [facility] Crisis if needed by calling [phone]. 7. I will consider calling [facility] Adult Mental health intake at [phone]. documented as of this encounter Visit Diagnoses [...] accurate information and submit it to the [facility]. 3. I will update CCC Team at outreach. Health Maintenance Due or Overdue 12/16/2023 Patient expresses financial resource strain 12/13 Mental Health Symptoms Need Improvement 04/05/19 25 Assessment Noted Time PHQ-9 Depression Total Score: 7 09/28/19 25 11:01 AM CDT documented as of this encounter Care Teams Engineering Tech Relationship Specialty [place] [address] [place] [address] PCP - General Family Practice 07/11/14 [place] [address] [place] [address] Assigned PCP 12/16/11 Christy Campuzano PA-C [address] [place] [address] Referring Physician Family Medicine 04/22/20 Hans Cannon MD [address] [place] [address] Resident Pulmonary Disease 04/22/20 Estella Hsasan, [facility] [address] [place], [place] [phone] Pharmacist Pharmacist 05/26/20 Elaina Moreno MD [address] [place] [address] [phone] Cardiovascular & Thoracic Surgery 08/06/20 John Webb MD [address] [id number] Cardiovascular Disease 08/25/21 John Webb MD [address] [id number] Cardiovascular Disease 08/25/21 Estella Hassan, [facility] [address] [place] [address] Assigned MTM Pharmacist 12/09/21 Lindsay Carey OD [address] [facility] [address] Ophthalmology 01/29/22 Richard Kam MD [address] [place] [address] [phone] Assigned Musculoskeletal Provider 08/14/22 [place] [address] [address] [place] [address] Assigned Neuroscience Provider 01/01/23 12/03/24 Rosemarie Mcdowell, RN Quality Control Supervisor Diabetes Education 03/17/23 Mitra Kendall, DICTATING MACHINE TRANSCRIBER Lead Oracle Technical Developer Primary Care - CC 12/12/23 Lizet Mann PA-C [address] [place] [address] Assigned Cancer Care Provider 01/04/24 Ravi Brownlee MD [address] [facility] [address] [place], [place] 2[address] Assigned Pulmonology Provider 01/04/24 Manuel Ahn OD [address] [place], [place] [address] Quality Tech 01/05/24 Thalia Charles [facility] [address] [place], [place] [phone] Pharmacist Pharmacy 01/26/24 Gaurav Valenzuela, NSESA WEBSITE PROGRAMMER [address] [place], [place] [phone] Assigned Sleep Provider 02/04/24 Debbie Mann MD [address] [facility] [address] [place] [address] Cardiovascular Disease 02/24/24 Hakeem Chacko MBBS [address] [place] [address] Assigned Rheumatology Provider 04/05/24 Debbie Mann MD [address] [facility] [address] [place] [address] Assigned Heart and Vascular Provider 05/06/24 Timothy Tejada MD [address] [place] [address] MD Ophthalmology 05/29/24 Timothy Tejada MD [address] [place] [address] Assigned Surgical Provider 06/03/24 Elsie Roberts APRN WEBSITE PROGRAMMER [address] [facility] [address] [place] [address] Nurse Practitioner Pain Medicine 10/16/24 documented as of this encounter
--- OUTSIDE RECORDS SUMMARY | 2024-11-01 14:30 | XMS_ITS | Encounter Summary ---
Author Organization [place] Address [address] [place] [address] Care Team Providers Care Septic Tank Service Technician Name Role Phone Va Glez MD Primary Care Provider [phone] Va Glez MD Unavailable Christy CampuzanoC Unavailable [phone] Hans Cannon MD Unavailable Estella Hassan [facility] Unavailable [phone] Josh Cordero MD, Madhuri Unavailable [phone] John Webb MD Unavailable John Webb MD Unavailable Estella Hassan [facility] Unavailable Lindsay Carey OD Unavailable Richard Kam MD Unavailable Gaby Vila DO Unavailable Rosemarie Mcdowell RN Unavailable Mitra Kendall BENCH WORKER HELPER Unavailable [phone] Lizet Mann PA-C Unavailable Ravi Brownlee MD Unavailable Manuel Ahn OD Unavailable [phone] Thalia Charles [facility] Unavailable [phone] Gaurav Valenzuela FLEXOGRAPHIC PRESS OPERATOR MINE SAFETY MANAGER Unavailable Debbie Mann MD Unavailable [phone] Hakeem Chacko MB Unavailable Debbie Mann MD Unavailable [phone] Timothy Tejada MD Unavailable [phone] Timothy Tejada MD Unavailable [phone] Elsie Roberts FLEXOGRAPHIC PRESS OPERATOR MINE SAFETY MANAGER Unavailable + Reason for Visit * Reason Comments ER F/U Encounter Details Date Type Department Care Team (Late st Contact Info) Description 11/01/2024 2:30 PM CDT Office Visit [facility] [id number] [place] [address] [phone] Rashard Gleason APRN MINE SAFETY MANAGER [address] [place], [place] [phone] Bilateral cellulitis of lower leg (Primary Dx) Social History Tobacco Use Types [...] re latives? Once a week 09/27/2024 Attends Spiritism Services Not on file 09/27 Active Member [...] Answer Date Recorded PHQ-2 Score 6 11/01/2024 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 Gender Identity Not on file Sexual Orientation Not on file Occupation Industry Job Start Date Job End Date Not on file Not on file Not on file Not on file documented as of this encounter Last Filed Vital Signs Vital Sign Reading Time Taken Comments Blood Pressure 118/72 11/01/2024 2:34 PM CDT Pulse 89 11/01/2024 2:34 PM CDT Temperature 36.4 C (97.6 F) 11/01/2024 2:34 PM CDT Respiratory Rate 15 11/01/2024 2:34 PM CDT Oxygen Saturation 93% 11/01/2024 2:34 PM CDT Inhaled Oxygen Concentration - - Weight 127 kg (280 lb) 11/01/2024 2:34 PM CDT Height 172.7 cm (5' 8) 11/01/2024 2:34 PM CDT Body Mass Index 42.57 11/01/2024 2:34 PM CDT documented in this encounter Progress Notes * Rashard Gleason APRN MINE SAFETY MANAGER - 11/01/2024 2:30 PM CDT Images from the original note were not included. Assessment & Plan (L03.116, L03.115) Bilateral cellulitis of lower leg (primary encounter diagnosis) Comment: worsening a bit. Did not burr picker prescription from ED visit for clindamycin. Reordered clindamycin to broaden spectrum and treat cellulitis. Discussed with patient importance of good hygienic practices as well with legs/wounds..Discussed medication risks and benefits of clindamycin with patient in detail with patient verbal understanding. Patient fully understands and is agreeable with plan of care, at this point patient will follow up as needed unless acute concerns arise in the meantime. Plan: clindamycin (CLEOCIN) 300 MG capsule MED REC REQUIRED Post Medication Reconciliation Status: discharge medications reconciled and changed, per note/orders Roseline Fay is a 64 year old, presenting for the following health issues: ER F/U 11/01/2024 2:21 PM Additional Questions Roomed by Qian CASTANEDA ED/UC Followup: Facility: [facility] Emergency Dept Date of visit: 10/28/2024 Reason for visit: Wound Check/Bilateral lower leg cellulitis Current Status: patient has been feeling hit all day, would like to know if his legs are infected, feeling pain as well Patient currently on Cephalexin, did not burr picker prescription for Clindamycin from ED visit. Review of Systems Constitutional, cardiovascular, pulmonary, GI, , skin systems are negative, except as otherwise noted. Objective BP 118/72 (BP Location: Right arm, Patient Position: Sitting, Cuff Size: Adult Large) Pulse 89 Temp 97.6 ??F (36.4 ??C) (Oral) Resp 15 Ht 1.727 m (5' 8) Wt 127 kg (280 lb) SpO2 93% BMI42.57 kg/m?? Body mass index is 42.57 kg/m??. Physical Exam Vitals and nursing note reviewed. Constitutional: Appearance: Normal appearance. He is well-developed. He is not ill-appearing or toxic-appearing. Cardiovascular: Rate and Rhythm: Normal rate. Pulmonary: Effort: Pulmonary effort is normal. Skin: Comments: Multiple skin tear opening bilateral legs, bilateral leg cellulitis concerns. See pictures for details. Neurological: Mental Status: He is alert. Psychiatric: Attention and Perception: Attention and perception normal. Mood and Affect: Mood is anxious. Speech: Speech normal. Behavior: Behavior normal. Behavior is cooperative. Thought Content: Thought content normal. Judgment: Judgment normal. Signed Electronically by: Rashard Gleason APRN MINE SAFETY MANAGER documented in this encounter Plan of Treatment Upcoming Encounters Date Type Department Care Team (Late st Contact Info) Description 12/11/2024 2:10 PM CDT Therapy Visit [facility] [address] [phone] Shanta Cooper, MOIZ 12/14/2024 11:20 AM CDT Office Visit [address] [phone] Lizet Mann PA-C [address] [place] [address] 12/17/2024 2:10 PM CDT Office Visit [facility] [address] [facility] 4th [place] [phone] Richard Kam MD [address] [place] [address] 12/19/2024 8:20 AM CDT Therapy Visit [address] [phone] Shanta Cooper, PT 12/24/2024 5:00 PM CDT Therapy Visit [address] [phone] Pattie Casillas, PT 12/25/2024 10:20 AM CDT Therapy Visit [address] [phone] Shanta Cooper, PT 01/03/2025 1:00 PM CDT Office Visit [address] [phone] Estella Hassan, [facility] [address] [place] [address] 01/03/2025 1:30 PM CDT Office Visit [address] [phone] [place] [id number] [place] [address] [phone] 01/08/2025 1:15 PM CDT Office Visit [facility] [address] [facility] [address] [place] [phone] Hakeem Chacko MBBS [address] [place] [address] Scheduled Procedures Name Priority Associated Diagnoses Date/Ti [...] for health insurance by looking in to [employer] and talking with a FRW. Completed 3. I will look for a new job and will access resources that the [employer] [facility] offers. . Sarted new job 4. Continue to use Single Care to reduce the cost of my prescriptions. Create an action plan to increase financial stability Care Plan Patient expresses financial resource strain No Josefina Patel Become up-to-date with health maintenance visit(s) Care Plan Health Maintenance Due or Overdue 30%( 5 3:13 PM CDT) Mitra Borja LSW Note: Barriers: Life stressors [...] by household income. 2. I will contact [employer] to ask about medicare plans and if there are saving programs I qualify for by by calling [phone]. 3. I will see if I am eligible for unemployment after losing my job. I will call [phone] to ask for assistance with unemployment application. 4. I will apply for jobs. I will work with [employer] in finding a job (Empower[employer].) 5. I will access [employer] and ask about financial resources (such as [...] Ronnie. 3. I will meet with community farmworker bulbs Manjula Gresham. 4. I will look in to attending an IOP program. I will discuss with my [place] mental Health therapist and number provided for [facility] - [phone] to schedule assessment fr IOP program. 5. I will go to [facility] if I have concerning mental health symptoms. 6. I will access [facility] if needed by calling [phone]. 7. I will consider calling [facility] intake at [phone]. documented as of this encounter Visit Diagnoses [...] accurate information and submit it to the [facility]. 3. I will update [facility] Team at outreach. Health Maintenance Due or Overdue 12/16/2023 Patient expresses financial resource strain 12/13 Mental Health Symptoms Need Improvement 04/05/19 25 Assessment Noted Time PHQ-9 Depression Total Score: 18 025 2:39 PM CDT documented as of this encounter Care Teams Septic Tank Service Technician Relationship Specialty [place] [address] [place] [address] PCP - General Family Practice 07/11/14 [place] [address] [place] [address] Assigned PCP 12/16/11 Christy Campuzano PA-C [address] [place] [address] [phone] Referring Physician Family Medicine 04/22/20 Hans Cannon MD [address] [place] [address] Resident Pulmonary Disease 04/22/20 Estella Hassan, [facility] [place] [address] Pharmacist Pharmacist 05/26/20 Elaina Moreno MD [address] [place] [address] Cardiovascular & Thoracic Surgery 08/06/20 John Webb MD [address] [id number] Cardiovascular Disease 08/25/21 John Webb MD [address] [id number] Cardiovascular Disease 08/25/21 Estella Hassan, [facility] [place] [address] Assigned MTM Pharmacist 12/09/21 Lindsay Carey OD [address] [place] [address] SHANKAR ROMO [address] Ophthalmology 01/29/22 Richard Kam MD [address] [place], [place] 9665[address] Assigned Musculoskeletal Provider 08/14/22 [place] [address] [address] [place], [facility] [address] [place], [place] [address] Assigned Neuroscience Provider 01/01/23 12/03/24 Rosemarie Mcdowell, RN Hoisting Engine Operator Diabetes Education 03/17/23 Mitra Kendall, BENCH WORKER HELPER Lead Mulling Machine Operator Primary Care - CC 12/12/23 Lizet Mann PA-C [address] [place], [place] [address] Assigned Cancer Care Provider 01/04/24 Ravi Brownlee MD [address] [place] [address] [address] [place], [place] [phone] Assigned Pulmonology Provider 01/04/24 Manuel Ahn OD [address] [place], [place] [phone] Glass Edger 01/05/24 Thalia Charles, [facility] [address] [place], [place] [phone] Pharmacist Pharmacy 01/26/24 Gaurav Valenzuela APRN MINE SAFETY MANAGER [address] [facility] [address] [place], [place] [address] Assigned Sleep Provider 02/04/24 Debbie Mann MD [address] [facility] [address] [place] [address] Cardiovascular Disease 02/24/24 Hakeem Chacko MBBS [address] [place] [address] Assigned Rheumatology Provider 04/05/24 Debbie Mann MD [address] [facility] [address] [place] [address] Assigned Heart and Vascular Provider 05/06/24 Timothy Tejada MD [address] [place] [phone] Ophthalmology 05/29/24 Timothy eTjada MD [address] [place] [phone] Assigned Surgical Provider 06/03/24 Elsie Roberts APRN CNP [address] [facility] [address] [place] [address] Nurse Practitioner Pain Medicine 10/16/24 documented as of this encounter
--- OUTSIDE RECORDS SUMMARY | 2024-11-01 19:37 | XMS_ITS | Encounter Summary ---
Author Organization [place] Address [address] [place] [address] Care Team Providers [facility] Administrator Name Role Phone Va Glez MD Primary Care Provider [phone] Va Glez MD Unavailable Christy CampuzanoC Unavailable [phone] Hans Cannon MD Unavailable Estella Hassan [facility] Unavailable Josh Cordero MD, Madhuri Unavailable [phone] John Webb MD Unavailable [phone] John Webb MD Unavailable Estella Hassan [facility] Unavailable Lindsay Carey OD Unavailable [phone] Richard Kam MD Unavailable Gaby Vila DO Unavailable Rosemarie Mcdowell RN Unavailable [phone] Mitra Kendall BRUSH HAND Unavailable [phone] Lizet Mann PA-C Unavailable Ravi Brownlee MD Unavailable Manuel Ahn OD Unavailable Thalia Charles [facility] Unavailable Gaurav Valenzuela TRANSITION NURSE PARANORMAL INVESTIGATOR Unavailable [phone] Debbie Mann MD Unavailable Hakeem Chacko MB Unavailable Debbie Mann MD Unavailable [phone] Timothy Tejada MD Unavailable [phone] Timothy Tejada MD Unavailable [phone] Elsie Roberts Jennifer TRANSITION NURSE PARANORMAL INVESTIGATOR Unavailable + Reason for Visit * Reason Comments Wound Check Encounter Details Date Type Department Care Team (Late st Contact Info) Description 11/01/2024 7:37 PM CDT - 11/01/2024 8:51 PM CDT Emergency [facility] Emergency Dept [address] [place] [address] Fabrice Britt, PA-C [facility] [address] [place], [place] [address] Bilateral cellulitis of lower leg (Primary Dx) Discharge Disposition: Home or Self [...] re latives? 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 Gender Identity Not on file Sexual Orientation Not on file Occupation Industry Job Start Date Job End Date Not on file Not on file Not on file Not on file documented as of this encounter Last Filed Vital Signs Vital Sign Reading Time Taken Comments Blood Pressure 130/87 11/01/2024 8:51 PM CDT Pulse 70 11/01/2024 8:51 PM CDT Temperature 36.6 C (97.9 F) 11/01/2024 7:37 PM CDT Respiratory Rate 16 11/01/2024 8:51 PM CDT Oxygen Saturation 94% 11/01/2024 8:51 PM CDT Inhaled Oxygen Concentration - - Weight 128.3 kg (282 lb 13.6 oz) 11/01/2024 7:34 PM CDT Height 172.7 cm (5' 8) 11/01/2024 7:34 PM CDT Body Mass Index 43.01 11/01/2024 7:34 PM CDT documented in this encounter Discharge Instructions * Attachments The following attachments cannot be sent through Care Everywhere. * Cellulitis (Ecuadorean) documented in this encounter Medications at Time [...] 09/28/2024 11/06/19 25 azelastine 137 MCG/SPRAY SOLN [place] 1 spray into both nostrils daily. 10/23/2024 [...] daily. 120 mL 11 07/24/2024 11/05/19 25 clindamycin (CLEOCIN) 300 MG capsuleIndications :Bilateral cellulitis of lower leg Take 1 capsule (300 mg) by mouth 4 times daily for 7 days. 28 capsule 11/01/2024 11/08/19 25 DULoxetine (CYMBALTA) 30 MG capsule Take 30 mg by mouth daily. 09/05/2024 11/05/19 25 fluticasone (FLONASE) 50 MCG/ACT nasal sprayIndications:S easonal allergic rhinitis, unspecified trigger [place] 1 spray into both nostrils daily. 16 [...] as of this encounter ED Notes * Fabrice Britt PA-C - 11/01/2024 7:44 PM CDT Images from the original note were not included. History Chief Complaint: Wound Check HPI Peter Devi is a 64 year old male with a past medical history of asthma, depression, obesity, type 2 diabetes, thoracic aortic aneurysm, LUZ, esophageal reflux, gallstones, diabetic polyneuropathy, cataracts, cervical spinal stenosis, who was seen 4 days ago Emergency Department had a negativeseptic workup at this time but was noted with cellulitis. He was prescribed clindamycin however he is not picked up the prescription started yet. He was seen earlier today for reevaluation his doctortold him to restart his antibiotics pictures were taken with out much progression. He denies any fevers vomiting nausea. He reports some weeping. He is mainly here to get his legs wrapped again. He plans on picking up his antibiotics tomorrow.Pictures from clinic visit today. Independent Historian: Review of External Notes: Office visit 11/02/2024 Medications: clindamycin (CLEOCIN) 300 MG capsule acetaminophen (TYLENOL) 500 MG tablet albuterol (PROAIR HFA/PROVENTIL HFA/VENTOLIN HFA) 108 (90 Base) MCG/ACT inhaler atorvastatin (LIPITOR) 40 MG tablet azelastine 137 MCG/SPRAY SOLN blood glucose monitoring (NO BRAND SPECIFIED) meter device kit budesonide (PULMICORT) 0.5 MG/2ML neb solution diclofenac (VOLTAREN) 1 % topical gel DULoxetine [...] Temp src Pulse Resp SpO2 Height Weight 11/01/242050 130/87 -- -- 70 16 94 % -- -- 11/01/241936 (!) 141/85 97.9 ??F (36.6 ??C) Temporal 87 18 99 % -- -- 11/01/241933 -- -- -- -- -- -- 1.727 m (5' 8) 128.3 kg (282 lb 13.6 oz) Physical Exam Vitals and nursing note reviewed. Eyes: General: No scleral icterus. Conjunctiva/sclera: Conjunctivae normal. Cardiovascular: Pulses: Normal pulses. Heart sounds: Normal heart sounds. Pulmonary: Effort: Pulmonary effort is normal. Breath sounds: Normal breath sounds. Skin: Capillary Refill: Capillary refill takes less than 2 seconds. Findings: Erythema (scabbing and no significant weeping wounds.) present. Comments: Erythema compared to earlier today seems to be unchanged. Neurological: Mental Status: He is alert and oriented to person, place, and time. Mental status is at baseline. Psychiatric: Mood and Affect: Mood normal. Behavior: Behavior normal. Thought Content: Thought content normal. Emergency Department Course Imaging: No orders to display Laboratory: Labs Ordered and Resulted from Time of ED Arrival to Time of ED Departure - No data to display Procedures Emergency Department Course & Assessments: Interventions: Medications clindamycin (CLEOCIN) capsule 300 mg (300 mg Oral $Given 11/01/242040) cefTRIAXone (ROCEPHIN) 1 g in lidocaine injection (1 g Intramuscular $Given 11/01/242040) Assessments: Independent Interpretation (X-rays, CTs, rhythm strip): None Consultations/Discussion of Management or Tests: None Social Drivers of Health affecting care: Noncompliance Disposition: The patient was discharged. Impression & Plan [facility] Diagnoses: IV Antibiotics given and/or elevated Lactate of 0 and no sepsis note found - Delete this reminder and enter the sepsis note or '.edcms' before signing chart.>>>None Medical Decision Making: This is a 64-year-old male who presents with concerns regarding cellulitic infection or requesting that his legs get wrapped. Patient has been noncompliant with his medication has not yet started hisantibiotics that he was prescribed on the . 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 Today imaging compared to the imaging this morning really no significant difference. The patient's vital signs are normal he is notfebrile tachycardic or hypotensive. Low clinical suspicion for SIRS response or sepsis at this timeI do not feel further blood work is indicated. He had a negative septic workup on the . He is not reporting any fevers. I have given him a first dose of clindamycin and Rocephin shot. 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 I did print out another prescription to ensure that he had this in hand. He understands that if he develops increasing redness pain swelling fevers or worsening condition to return back to the ED. We did wrap his legs for him. He can also utilize outpatient compression stockings if he chooses. Primary care follow-up for recheck early next week as recommended. Diagnosis: ICD-10-CM 1. Bilateral cellulitis of lower leg L03.116 clindamycin (CLEOCIN) 300 MG capsule L03.115 Discharge Medications: Discharge Medication List as of 11/01/2024 8:43 PM 11/01/2024 Fabrice Britt PA-C Kruger, Jacob C, PA-C 11/02/24 0017 * Denise Clayton RN - 11/01/2024 7:34 PM CDT Pt to ER w c/o wound check on R leg. States he was seen here on Tuesday for L leg and now having issues with R leg. Open wound to R leg, weeping. States he was wraps for his legs. Rates pain 08/21. VSS, ABCs intact, A&Ox4. documented in this encounter Plan of Treatment Upcoming Encounters Date Type Department Care Team (Late st Contact Info) Description 12/11/2024 2:10 PM CDT Therapy Visit [facility] [address] [phone] Shanta Cooper, PT 12/14/2024 11:20 AM CDT Office Visit [address] [phone] Lizet Mann PA-C [address] [place] [address] 12/17/2024 2:10 PM CDT Office Visit [facility] [address] [place] [phone] Richard Kam MD [address] [place] [address] 12/19/2024 8:20 AM CDT Therapy Visit [address] [phone] Shanta Cooper, PT 12/24/2024 5:00 PM CDT Therapy Visit [address] [phone] Pattie Casillas, PT 12/25/2024 10:20 AM CDT Therapy Visit [address] [phone] Shanta Cooper, PT 01/03/2025 1:00 PM CDT Office Visit [address] [phone] Estella Hassan, [facility] [address] [place] [address] 01/03/2025 1:30 PM CDT Office Visit [address] [phone] [place] [id number] [place] [address] 01/08/2025 1:15 PM CDT Office Visit [address] [phone] Hakeem Chacko MBBS [address] [place] [address] Scheduled Procedures Name Priority Associated Diagnoses Date/Ti [...] for health insurance by looking in to [employer] and talking with a FRW. Completed 3. I will look for a new job and will access resources that the [employer] center offers. . Sarted new job 4. [...] by household income. 2. I will contact [employer] [facility] to ask about medicare plans and if there are saving programs I qualify for by by calling [phone]. 3. I will see if I am eligible for unemployment after losing my job. I will call [phone] to ask for assistance with unemployment application. 4. I will apply for jobs. I will work with [employer] in finding a job ([employer]ower[employer].) 5. I will access [employer] and ask about financial resources (such as [...] I will continue working with therapist at [facility]. 2. I will establish with Psychiatry. Planning to schedule with Ronnie. 3. I will meet with community ice cream vault worker Manjula Gresham. 4. I will look in to attending an IOP program. I will discuss with my [place] [facility] therapist and number provided for [facility] Behavioral Access - [phone] to schedule assessment fr IOP program. 5. I will go to [facility] if I have concerning mental health symptoms. 6. I will access [facility] if needed by calling [phone]. 7. I will consider calling [facility] Adult Mental health intake at [phone]. documented as of this encounter Visit Diagnoses Diagnosis Bilateral cellulitis of lower leg- Primary Cellulitis and abscess of leg, except foot documented in this encounter Administered Medications Inactive Administered Medications - up to 3 most recent administrations Medication Order MAR Action Action Date Dose Rate Site cefTRIAXone (ROCEPHIN) 1 g in lidocaine injection STAT, 1 g (rounded from 1,000 mg), Intramuscular, ONCE, On Annette 11/01/24 at 1954, For 1 dose, Indications: Skin and Soft Tissue InfectionIndications:Skin and Soft Tissue Infection $Given 11/01/2024 8:41 PM CDT 1 g Left Deltoid clindamycin (CLEOCIN) capsule 300 mg STAT, 300 mg, Oral, ONCE, On Annette 11/01/24 at 1954, For 1 dose, Indications: Skin and Soft Tissue InfectionIndications:Skin and Soft Tissue Infection $Given 11/01/2024 8:41 PM CDT 300 mg documented in this encounter Active and Recently Administered Medications Times are shown in CDT. Scheduled Medication Order 10/30/2024 10/31/2024 11/01/2024 cefTRIAXone (ROCEPHIN) 1 g in lidocaine injection (COMPLETED) STAT, 1 g (rounded from 1,000 mg), Intramuscular, ONCE, On Annette 11/01/24 at 1954, For 1 dose, Indications: Skin and Soft Tissue Infection 2040 ($Given - Provi crista: Kiley Chong RN) clindamycin (CLEOCIN) capsule 300 mg (COMPLETED) STAT, 300 mg, Oral, ONCE, On Annette 11/01/24 at 1954, For 1 dose, Indications: Skin and Soft Tissue Infection 2040 ($Given - Provi crista: Kiley Chong RN) documented in this encounter Additional Health [...] as of this encounter Care Teams Health Services Administrator Relationship Specialty [place] [address] [place] [address] PCP - General Family Practice 07/11/14 [place] [address] [place] [address] Assigned PCP 12/16/11 Christy Campuzano PA-C [address] [place] [address] [phone] Referring Physician Family Medicine 04/22/20 Hans Cannon MD [address] [place] [address] [id number] Resident Pulmonary Disease 04/22/20 Estella Hassan, [facility] [address] [place] [address] Pharmacist Pharmacist 05/26/20 Elaina Moreno MD [address] [place] [address] Cardiovascular & Thoracic Surgery 08/06/20 John Webb MD [address] [address] Cardiovascular Disease 08/25/21 John Webb MD [address] [address] Cardiovascular Disease 08/25/21 Estella Hassan, [facility] [address] [place] [address] Assigned MTM Pharmacist 12/09/21 Lindsay Carey OD [address] [place] [address] Ophthalmology 01/29/22 Richard Kam MD [address] [place] [address] Assigned Musculoskeletal Provider 08/14/22 [place] [address] [address] Assigned Neuroscience Provider 01/01/23 12/03/24 Rosemarie Mcdowell, RN Cut Plug Packer Diabetes Education 03/17/23 Mitra Kendall, BRUSH HAND Lead Air Hose Coupler Primary Care - CC 12/12/23 Lizet Mann PA-C [address] [place] [address] Assigned Cancer Care Provider 01/04/24 Ravi Brownlee MD [address] [facility] [address] [place] [address] Assigned Pulmonology Provider 01/04/24 Manuel Ahn OD [address] [place] [address] Stamp Pad Maker 01/05/24 Thalia Charles [facility] [address] [place], [place] [phone] Pharmacist Pharmacy 01/26/24 Gaurav Valenzuela APRN PARANORMAL INVESTIGATOR [address] [address] [place] [address] Assigned Sleep Provider 02/04/24 Debbie Mann MD [address] [facility] [address] [place], [place] [phone] Cardiovascular Disease 02/24/24 Hakeem Chacko MBBS [address] [place] [address] Assigned Rheumatology Provider 04/05/24 Debbie Mann MD [address] [facility] [address] [place], [place] [phone] Assigned Heart and Vascular Provider 05/06/24 Timothy Tejada MD [address] [place] [phone] Ophthalmology 05/29/24 Timothy Tejada MD [address] [facility] [address] Assigned Surgical Provider 06/03/24 Elsie Roberts APRN PARANORMAL INVESTIGATOR [address] [phone] Nurse Practitioner Pain Medicine 10/16/24 documented as of this encounter
--- OUTSIDE RECORDS SUMMARY | 2024-11-04 09:06 | XMS_ITS | Encounter Summary ---
Author Organization [facility] Address [address] [place] [address] Care Team Providers Care Signalling And Communications Engineer Name Role Phone Va Glez MD Primary Care Provider Va Glez MD Unavailable Christy CampuzanoC Unavailable [phone] Hans Cannon MD Unavailable [phone] Estella Hassan [facility] Unavailable Josh Cordero MD, Madhuri Unavailable [phone] John Webb MD Unavailable [phone] John Webb MD Unavailable [phone] Estella Hassan [facility] Unavailable Lidnsay Carey OD Unavailable Richard Kam MD Unavailable Gaby Vila DO Unavailable Rosemarie Mcdowell RN Unavailable [phone] Mitra Kendall COLLECTION CARD CLERK Unavailable [phone] Lizet Mann PA-C Unavailable Ravi Brownlee MD Unavailable [phone] Manuel Ahn OD Unavailable Thalia Charles [facility] Unavailable [phone] Gaurav Valenzuela LIME KILN AND RECAUSTICIZING OPERATOR TRAIN DISPATCHER Unavailable [phone] Debbie Mann MD Unavailable [phone] margaretmarcin Hakeem MB Unavailable Debbie Mann MD Unavailable [phone] Timothy Tejada MD Unavailable [phone] Timothy Tejada MD Unavailable [phone] Elsie Roberts Jennifer LIME KILN AND RECAUSTICIZING OPERATOR TRAIN DISPATCHER Unavailable + Cristy Morton MD Unavailable [phone] Reason for Referral * CV Testing (Routine) - Pending Review Specialty Diagnoses / Procedures Referred By Contac t Referred To Contact Diagnoses Atrial fibrillation with RVR (H) Procedures ZIO PATCH MAIL OUT Devon Alexander MD [address] [place] [address] Phone: tel: fax: Referral ID Status Reason Start Date Expiration Date V isits Requested Visits Authorized [id number] Pending Review 11/05/2024 11/05/2025 1 1 * Care Coordination (Routine: Next available opening) - Pending Review Specialty Diagnoses / Procedures Referred By Contac t Referred To Contact Diagnoses Atrial fibrillation with RVR (H) Devon Alexander MD [address] HOSPITALIST OFFICE [place] [id number] Phone: tel: fax: Referral ID Status Reason Start Date Expiration Date V isits Requested Visits Authorized [id number] Pending Review 11/05/2024 11/05/2025 1 1 Question Answer Reason for Referral: Care Transition Transition: Inpatient to outpatient Clinical Staff have discussed the Care Coordination Referral with the patient and/or caregiver: No Comments Reason for Visit * Reason Comments Diarrhea Shortness of Breath * Auth/Cert Specialty Diagnoses / Procedures Referred By Mireille t Referred To Contact EMERGENCY MEDICINE Diagnoses Atrial fibrillation with RVR (H) Devon Alexander MD [address] [facility] [place] [address] Phone: tel: fax: [facility] Emergency Dept [address] [place] [address] Phone: tel: fax: Referral ID Status Reason Start Date Expiration Date Visits Re quested Visits Authorized [id number] 1 1 Encounter Details Date Type Department Care Team (Late st Contact Info) Description 11/04/2024 9:06 AM CDT - 11/05/2024 7:34 PM CDT Hospital Encounter [facility] 3 Medical Surgical [address] [place] [place] [address] Preston Oliveira MD [facility] [address] [place], [place] [id number] Devon Alexander MD [address], [facility] HOSPITALIST OFFICE [place], [place] [id number] Atrial fibrillation with RVR (H) (Primary Dx); Impaired skin integrity [R23.9]; Exacerbation of asthma, unspecified asthma severity, unspecified whether persistent; Diabetic polyneuropathy associated with type 2 diabetes mellitus (H); Bilateral cellulitis of lower leg; Chronic pain of right knee Discharge Disposition: Home or Self Care Social [...] re latives? Once a week 09/27/2024 Attends [employer] Not on file 09/27 Active Member [...] Answer Date Recorded PHQ-2 Score 6 11/01/2024 [facility] [...] before you got money to buy more? Yes 11/05/2024 Within the past 12 months, d id the food you bought just not last and you didn t have money to get more? Yes 11/05/2024 Housing Stability Answer Date Recorded Do you have housing? (Housin g is defined as stable permanent housing and does not include staying outside in a car, in a tent, in an abandoned building, in an overnight long-term, 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.) Yes 11/05/2024 Are you worried about losing your housing? Yes 11/05/2024 Financial Resource Strain Answer Date R ecorded Within the past 12 months, h ave you or your family members you live with been unable to get utilities (heat, electricity) when it was really needed? Yes 11/05/2024 Transportation Needs Answer Date Record ed Within the past 12 months, h as lack of transportation kept you from medical appointments, getting your medicines, non-medical meetings or appointments, work, or from getting things that you need? Yes 11/05/2024 Interpersonal Safety Answer Date Record ed Do you feel physically and e motionally safe where you currently live? Yes 11/05/2024 Within the past 12 months, h ave you been hit, slapped, kicked or otherwise physically hurt by someone? No 11/05/2024 Within the past 12 months, h ave you been humiliated or emotionally abused in other ways by your partner or ex-partner? 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 Gender Identity Not on file Sexual Orientation Not on file Occupation Industry Job Start Date Job End Date Not on file Not on file Not on file Not on file documented as of this encounter Last Filed Vital Signs Vital Sign Reading Time Taken Comments Blood Pressure 122/75 11/05/2024 5:08 PM CDT Pulse 80 11/05/2024 1:50 PM CDT Temperature 36.7 C (98 F) 11/05/2024 5:08 PM CDT Respiratory Rate 16 11/05/2024 5:08 PM CDT Oxygen Saturation 94% 11/05/2024 5:08 PM CDT Inhaled Oxygen Concentration - - Weight 126.1 kg (278 lb 1.6 oz) 11/05/2024 6:01 AM CDT Height 162.6 cm (5' 4) 11/04/2024 3:02 PM CDT Body Mass Index 47.74 11/04/2024 3:02 PM CDT documented in this encounter Discharge Summaries * Devon Alexander MD - 11/05/2024 7:34 PM CDT [facility] Hospitalist Discharge Summary Date of Admission: 11/04/2024 Date of Discharge: 11/05/2024 7:34 PM Discharging Provider: Devon Alexander MD Discharge Service: Hospitalist Service Discharge Diagnoses New atrial fibrillation with RVR Diarrhea Bilateral lower extremity wounds Bilateral lower extremity edema DM2 MDD Anxiety HLD Clinically Significant Risk Factors # DMII: A1C = 7.3 % (Ref range: 0.0 - 5.6 %) within past 6 months # Morbid Obesity: Estimated body mass index is 47.74 kg/m?? as calculated from the following: Height as of this encounter: 1.626 m (5' 4). Weight as of this encounter: 126.1 kg (278 lb 1.6 oz). Follow-ups Needed After Discharge Follow-up Appointments Hospital Follow-up with Existing Primary Care Provider (PCP) Schedule Primary Care visit within: 7 Days Recommended labs and Imaging (to be ordered by Primary Care Provider): Daily maintenance inhaler discussion, episode of atrial fibrillation with frequent albuterol use Follow Up The cardiology office will call you to discuss any abnormalities that are found on your Zio patch, which is the device that will be mailed to you that will monitor your heart rhythm. Unresulted Labs Ordered in the Past 30 Days of this Admission No orders found from 10/05/2024 to 11/05/2024. Discharge Disposition Discharged to home Condition at discharge: Stable Hospital Course Danae Olvera is a 64 year old male with PMH significant for former tobacco abuse, moderate persistent asthma, DM2 with peripheral neuropathy, morbid obesity, OA of right knee, anxiety, HLD, carpal tunnel syndrome, and recently seen in the ED 10/21, 10/28, and 11/01 with concern for cellulitis of bilateral who returns to the ED on 11/04/2024 for evaluation of diarrhea and shortness of breath. ED workup reveals: tachycardic shortly after arriving to the ED up to 130s with EKG showing concernfor new A-fib with RVR, intermittently hypertensive, creatinine of 0.65, glucose of 228, LFTs WNL, proBNP of 46, troponin of 17, CBC unremarkable, and no imaging performed. New A-fib with RVR Onset of shortness of breath, palpitations, mild left nonradiating chest pain, and increased fatigue this morning while attempting to walk only 30 yards at a park after had a multiple episodes of diarrhea at home. In ED initially normal rate but found to be subsequently tachycardic up into the 130swith EKG confirming new A-fib with RVR. Troponin and proBNP WNL. Suspect in relation to recent diarrhea and possible lower extremity infection due to recent wounds. Received dose of IV diltiazem 20 mg in ED with improvement in heart rate into the low 110s and started on IV diltiazem drip to furtherimprove rate control. Converted to NSR after fluid resuscitation. Think this was likely due to hypov olemia with the diarrhea and poor PO intake. - [id number] score of 2 based on age and diabetes, deferred anticoagulation given score and discussion with patient - Zio patch ordered for discharge to [facility], although afib appeared to be acutely triggered by hypovolemic state as it resolved following fluid resuscitation Diarrhea Recently been on oral Keflex for bilateral lower extremity cellulitis and switched to clindamycin which he took his first dose of on 11/03 followed by onset of diarrhea the morning of 11/04. He had 4-5episodes of nonbloody watery stools with his last at 9:30 AM. No history of C. Difficile. - s/p 500 cc normal saline bolus, good oral intake during admission - Enteric and C. difficile stool testing negative - Finish 5 days Abx, encouraged ongoing good oral intake if still having loose stools. Bilateral LE wounds Bilateral LE edema Sustained injury to left grimaldo approximately 1.5 months ago and right grimaldo 1 month ago with open wounds. He notes left grimaldo with blistering and weeping. He has mild bilateral lower extremity swelling for which he should be wearing compression stockings but has not been. He has not been elevating hislegs. He has been seen in the ED on 10/21, 10/28, and 11/01. He was also seen in the clinic on 10/24. He was initially prescribed oral Keflex for which he took for 4 to 5 days before being told to switchto oral Clindamycin, which he did not take a dose of until 11/03. Sounds as if the patient has not been consistent with wound care or antibiotic use as well notes his dog may of licked his wounds since they occurred. Wounds on exam appear more localized with mild surrounding erythema and serosanguineous drainage from lower extremity swelling rather than spreading cellulitis. Afebrile and no leukocytosis. Patient reports history of MRSA but unable to find this in chart. - Elevate bilateral lower extremities - WOC consult for wound care during admission - Will finish 5 days Abx for completeness, follow up about leg wounds with primary clinic DM2 Recent hemoglobin A1c of and 7.3 on 09/27/2024. Initial blood glucose of 228. - Continue SUPERINTENDENT SANITATION medications Moderate persistent asthma Not on maintenance inhaler due to cost of inhalers. Does use albuterol regularly. - As needed levoalbuterol nebulizers due to tachycardia for shortness of breath Anxiety MDD Patient appears very anxious on admission. He reports seeing 3 different therapist but does not currently have follow-up with psychiatry. He previously was on Lexapro but felt this was not very helpful and stopped. He has not yet started the Cymbalta that has been recommended. - Recommend outpatient follow-up with psychiatry and consider starting Cymbalta since anxiety appears uncontrolled Hyperlipidemia - Continue SUPERINTENDENT SANITATION atorvastatin Morbid obesity Noted, complicated care. Right carpal tunnel syndrome Reports planning to have surgery for management on 11/08, this will likely need to be postponed withnew A-fib diagnosis and pending if anticoagulation needed although I do not believe he will need usp AC as of now. Consultations This Hospital Stay WOUND OSTOMY CONTINENCE NURSE IP CONSULT SPIRITUAL HEALTH SERVICES IP CONSULT CARE MANAGEMENT / SOCIAL WORK IP CONSULT SPIRITUAL HEALTH SERVICES IP CONSULT NURSING TO CONSULT FOR VIRTUAL CARE IP CARE MANAGEMENT / SOCIAL WORK IP CONSULT NURSING TO CONSULT FOR VIRTUAL CARE IP Code Status Prior Time Spent on this Encounter IDevon MD, personally saw the patient today and spent greater than 30 minutes dischargingthis patient. Devon Alexander MD [facility] 3 MEDICAL SURGICAL [address] [facility] [address] Physical Exam Vital Signs: Weight: 278 lbs 1.6 oz GEN: Alert, oriented x 3, appears anxious, no overt distress CV: Regular rhythm and rate, no murmur or JVD. S1 + S2 noted, no S3 or S4. LUNGS: Clear to auscultation bilaterally without rales/rhonchi/wheezing/retractions. Symmetric chest rise on inhalation noted. ABD: Active bowel sounds, soft, non-tender/non-distended. No rebound/guarding/rigidity. EXT: 1+ bilateral LE edema. No cyanosis. No acute joint synovitis noted. SKIN: Dry to touch, open wounds to bilateral LE with mild surrounding erythema consistent with morelocalized infection rather than worsening cellulitis, serosanguinous weeping NEURO: Symmetric muscle strength, sensation to touch grossly intact. Coordination symmetric on general exam. No new focal deficits appreciated. Primary Care Physician Va Glez Discharge Orders Primary Care - Care Coordination Referral Reason for your hospital stay Fast heart rate called atrial fibrillation. Activity Your activity upon discharge: activity as tolerated Follow Up The cardiology office will call you to discuss any abnormalities that are found on your Zio patch, which is the device that will be mailed to you that will monitor your heart rhythm. Diet Follow this diet upon discharge: Current Diet:Orders Placed This Encounter Combination Diet 2 gm Sodium Diet Hospital Follow-up with Existing Primary Care Provider (PCP) ZIO PATCH MAIL OUT Significant Results and Procedures Most Recent 3 CBC's: Recent Labs Lab Test 11/05/24 0842 11/04/24 1204 10/28/242005 WBC 4.02 5.68 7.85 HGB 13.4 13.7 13.4 MCV 84.5 83.5 83.0 PLT 177 196 191 Most Recent 3 BMP's: Recent Labs Lab Test 11/05/24 1806 11/05/24 1228 11/05/24 0842 11/04/24 1649 11/04/24 1100 10/28/242005 NA -- -- 139 -- 135 144 POTASSIUM -- -- 4.3 -- 4.3 4.1 CHLORIDE -- -- 102 -- 101 106 CO2 -- -- 26 -- 26 26 BUN -- -- 8.5 -- 14.4 18.6 CR -- -- 0.70 -- 0.65* 0.72 ANIONGAP -- -- 11 -- 8 12 PARTHA -- -- 9.2 -- 9.3 9.1 GLC 156* 172* 213* < > 228* 198* < > = values in this interval not displayed. Most Recent 2 LFT's: Recent Labs Lab Test 11/04/24 1100 10/21/24 1430 AST 15 16 ALT 23 24 ALKPHOS 91 76 BILITOTAL 0.5 0.4 , Results for orders placed or performed during the hospital encounter of 11/04/24 Echocardiogram Complete Value LVEF 55-60% [facility] [id number]^KRISTAN^DANA^MONICA [facility] Echocardiography Laboratory [address] [place] [address] Name: DANAE OLVERA : 1960 Study Date: 11/05/2024 08:17 AM Age: 64 yrs Gender: Male Patient Location: [facility] Reason For Study: Atrial Fibrillation Ordering Physician: DANA RUSHING Referring Physician: Va Glez Performed By: Nataliia Fishman RDCS BSA: 2.3 m2 Height: 64 in Weight: 281 lb HR: 79 BP: 156/85 mmHg Procedure Echocardiogram with two-dimensional, color and spectral Doppler. Interpretation Summary Left ventricular systolic function is normal.The visual ejection fraction is 55-60%.The left ventricle is mildly dilated. The right ventricular systolic function is normal.The right ventricle is mildly dilated. 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 IVC diameter <2.1 cm collapsing >50% with sniff suggests a normal RA pressure of 3 mmHg. Echocardiogram dated 03/26/2024 aortic root 4.4 cm, ascending aorta 4.2 cm Left Ventricle The left ventricle is mildly dilated. There is normal left ventricular wall thickness. Left ventricular systolic function is normal. The visual ejection fraction is 55-60%. Diastolic Doppler findings (E/E' ratio and/or other parameters) suggest left ventricular filling pressures are increased. No regional wall motion abnormalities noted. Right Ventricle The right ventricle is mildly dilated. The right ventricular systolic function is normal. Atria Normal left atrial size. Right atrial size is normal. There is no color Doppler evidence of an atrial shunt. Mitral Valve There is trace mitral regurgitation. There is no mitral valve stenosis. Tricuspid Valve There is trace tricuspid regurgitation. Right ventricular systolic pressure could not be approximated due to inadequate tricuspid regurgitation. Aortic Valve The aortic valve is trileaflet. No aortic regurgitation is present. No aortic stenosis is present. Pulmonic Valve There is no pulmonic valvular stenosis. Vessels Aortic root dilatation is present. 4 cm. Ascending aorta aneurysm is present. 4.6 cm. IVC diameter <2.1 cm collapsing >50% with sniff suggests a normal RA pressure of 3 mmHg. Pericardium There is no pericardial effusion. Rhythm Sinus rhythm was noted. MMode/2D Measurements & Calculations IVSd: 0.96 cm LVIDd: 5.9 cm LVIDs: 3.7 cm LVPWd: 0.96 cm IVC diam: 1.9 cm FS: 36.9 % LV mass(C)d: 225.1 grams LV mass(C)dI: 99.6 grams/m2 Ao root diam: 4.0 cm asc Aorta Diam: 4.6 cm Ao root diam index Ht(cm/m): 2.5 Ao root diam index BSA (cm/m2): 1.8 Asc Ao diam index BSA (cm/m2): 2.0 Asc Ao diam index Ht(cm/m): 2.8 LA Volume (BP): 54.5 ml LA Volume Index (BP): 24.1 ml/m2 RV Base: 4.9 cm RWT: 0.33 TAPSE: 2.5 cm Doppler Measurements & Calculations MV E max vic: 93.8 cm/sec MV A max vic: 111.0 cm/sec MV E/A: 0.85 MV max P.6 mmHg MV mean P.1 mmHg MV V2 VTI: 29.4 cm MV dec time: 0.31 sec E/E' av.0 Lateral E/e': 13.3 Medial E/e': 8.7 RV S Vic: 14.9 cm/sec Report approved by: Jean Carlos Huizar MD on 11/05/2024 11:54 AM *Note: Due to a large number of results and/or encounters for the requested time period, some results have not been displayed. A complete set of results can be found in Results Review. Discharge Medications Review of your medicines UNREVIEWED medicines. Ask your doctor about these medicines Dose / Directions cephALEXin 500 MG capsule Commonly known as: KEFLEX Used for: Diabetic polyneuropathy associated with type 2 diabetes mellitus (H), Bilateral cellulitis of lower leg, Chronic pain of right knee Ask about: Should I take this medication? Dose: 500 mg Take 1 capsule (500 mg) by mouth 3 times daily for 4 days. Quantity: 12 capsule Refills: 0 CONTINUE these medicines which have NOT CHANGED Dose / Directions acetaminophen 500 MG tablet Commonly known as: TYLENOL Dose: 500-1,000 mg Take 500-1,000 mg by mouth every 6 hours as needed for mild pain. Refills: 0 albuterol 108 (90 Base) MCG/ACT inhaler Commonly known as: PROAIR HFA/PROVENTIL HFA/VENTOLIN HFA Used for: Exacerbation of asthma, unspecified asthma severity, unspecified whether persistent Dose: 2 puff Inhale 2 puffs into the lungs every 6 hours as needed for shortness of breath, wheezing or cough. Quantity: 54 g Refills: 3 atorvastatin 40 MG tablet Commonly known as: LIPITOR Used for: Type 2 diabetes mellitus without complication, without long-term current use of insulin (H) Dose: 40 mg Take 1 tablet (40 mg) by mouth every evening. Quantity: 90 tablet Refills: 3 cholecalciferol 1250 mcg (21652 units) capsule Commonly known as: VITAMIN D3 Dose: 1,250 mcg Take 1,250 mcg by mouth every 7 days. Refills: 0 diclofenac 1 % topical gel Commonly known as: VOLTAREN Dose: 2 g Apply 2 g topically 4 times daily as needed. Refills: 0 gabapentin 300 MG capsule Commonly known as: NEURONTIN Used for: Anterolisthesis of cervical spine, Retrolisthesis, Cervical radiculopathy Dose: 600 mg Take 2 capsules (600 mg) by mouth 2 times daily. Quantity: 360 capsule Refills: 3 glipiZIDE 10 MG 24 hr tablet Commonly known as: GLUCOTROL XL Used for: Type 2 diabetes mellitus without complications (H) Dose: 20 mg TAKE 2 TABLETS BY MOUTH EVERY DAY Quantity: 180 tablet Refills: 1 ipratropium - albuterol 0.5 mg/2.5 mg (3mg)/3 mL 0.5-2.5 (3) MG/3ML neb solution Commonly known as: DUONEB Used for: SOB (shortness of breath), Moderate persistent asthma without complication INHALE 3 MLS VIA NEBULIZER 4 TIMES A DAY NEEDED Quantity: 270 mL Refills: 1 metFORMIN 500 MG 24 hr tablet Commonly known as: GLUCOPHAGE XR Dose: 2,000 mg Take 4 tablets (2,000 mg) by mouth daily (with dinner). Quantity: 360 tablet Refills: 1 ondansetron 4 MG ODT tab Commonly known as: ZOFRAN ODT Dose: 4 mg Take 4 mg by mouth every 8 hours as needed for nausea. Refills: 0 pioglitazone 15 MG tablet Commonly known as: ACTOS Used for: Type 2 diabetes mellitus with hyperglycemia, without long-term current use of insulin (H) Dose: 15 mg Take 1 tablet (15 mg) by mouth daily. Quantity: 90 tablet Refills: 1 Where to get your medicines These [place] - [address] [facility] [address] [facility] [address] albuterol 108 (90 Base) MCG/ACT inhaler cephALEXin 500 MG capsule Allergies Allergies Allergen Reactions Singulair [Montelukast] Pt felt anxious on the medicine. documented in this encounter Discharge Instructions * Discharge Instructions* Janny Moreno RN - 11/05/2024 3:36 PM CDT BLE - Daily Cleanse with water; gently dry. Apply Mepilex to open wound on R grimaldo (this only needs to be changed every 3 days). Apply Sween Cream to exposed skin on BLE. * Attachments The following attachments cannot be sent through Care Everywhere. * Low Sodium Diet (Filipino) * Low Sodium: Reading a Food Label (Filipino) * Cephalexin (Filipino) * Atrial Fibrillation (Filipino) documented in this encounter Medications at Time of Discharge acetaminophen (TYLENOL) 500 MG tablet Take 500-1,000 mg by mouth every 6 hours as needed for mild pain. atorvastatin (LIPITOR) 40 MG tabletIndications:Ty pe 2 diabetes mellitus without complication, without long-term current use of insulin (H) Take 1 tablet (40 mg) by mouth every evening. 90 tablet 3 10/18/2024 cholecalciferol (VITAMIN D3) 1250 mcg (71354 units) capsule Take 1,250 mcg by mouth every 7 days. diclofenac (VOLTAREN) 1 % topical gel Apply 2 g topically 4 times daily as needed. glipiZIDE (GLUCOTROL XL) 10 MG 24 hr tabletIndications:Ty pe 2 diabetes mellitus without complications (H) TAKE 2 TABLETS BY MOUTH EVERY DAY 180 tablet 1 09/28/2024 ipratropium - albuterol 0.5 mg/2.5 mg, 3mg,/3 mL (DUONEB) 0.5-2.5 (3) MG/3ML neb solutionIndications: SOB (shortness of breath),Moderate persistent asthma without complication INHALE 3 MLS VIA NEBULIZER 4 TIMES A DAY NEEDED 270 mL 1 10/25/2024 metFORMIN (GLUCOPHAGE XR) 500 MG 24 hr tablet Take 4 tablets (2,000 mg) by mouth daily (with dinner). 360 tablet 1 03/08/2024 ondansetron (ZOFRAN ODT) 4 MG ODT tab Take 4 mg by mouth every 8 hours as needed for nausea. pioglitazone (ACTOS) 15 MG tabletIndications:Ty pe 2 diabetes mellitus with hyperglycemia, without long-term current use of insulin (H) Take 1 tablet (15 mg) by mouth daily. 90 tablet 1 06/28/2024 cephALEXin (KEFLEX) 500 MG capsuleIndications:D iabetic polyneuropathy associated with type 2 diabetes mellitus (H),Bilateral cellulitis of lower leg,Chronic pain of right knee Take 1 capsule (500 mg) by mouth 3 times daily for 4 days. 12 capsule 11/05/2024 5 albuterol (PROAIR HFA/PROVENTIL HFA/VENTOLIN HFA) 108 (90 Base) MCG/ACT inhalerIndications:E xacerbation of asthma, unspecified asthma severity, unspecified whether persistent Inhale 2 puffs into the lungs every 6 hours as needed for shortness of breath, wheezing or cough. 54 g 3 11/05/2024 5 clindamycin (CLEOCIN) 300 MG capsuleIndications:B ilateral cellulitis of lower leg Take 1 capsule (300 mg) by mouth 4 times daily for 7 days. 28 capsule 11/01/2024 5 fluticasone (FLONASE) 50 MCG/ACT nasal spray [place] 1 spray into both nostrils daily as needed for rhinitis or allergies. 5 gabapentin (NEURONTIN) 300 MG capsuleIndications:A nterolisthesis of cervical spine,Retrolisthesis ,Cervical radiculopathy Take 2 capsules (600 mg) by mouth 2 times daily. 360 capsule 3 10/12/2024 5 documented as of this encounter H&P Notes * Dana Rushing PA-C - 11/04/2024 3:12 PM CDT [facility] Hospitalist History and Physical Name: Danae Olvera Date of : 1960 Age: [age] year old Date of Admission: 11/04/2024 Date of Service (when I saw the patient): 11/04/24 Assessment & Plan Danae Olvera is a 64 year old male with PMH significant for former tobacco abuse, moderate persistent asthma, DM2 with peripheral neuropathy, morbid obesity, OA of right knee, anxiety, HLD, carpal tunnel syndrome, and recently seen in the ED 10/21, 10/28, and 11/01 with concern for cellulitis of bilateral who returns to the ED on 11/04/2024 for evaluation of diarrhea and shortness of breath. ED workup reveals: tachycardic shortly after arriving to the ED up to 130s with EKG showing concernfor new A-fib with RVR, intermittently hypertensive, creatinine of 0.65, glucose of 228, LFTs WNL, proBNP of 46, troponin of 17, CBC unremarkable, and no imaging performed. New A-fib with RVR Onset of shortness of breath, palpitations, mild left nonradiating chest pain, and increased fatigue this morning while attempting to walk only 30 yards at a park after had a multiple episodes of diarrhea at home. In ED initially normal rate but found to be subsequently tachycardic up into the 130swith EKG confirming new A-fib with RVR. Troponin and proBNP WNL. Suspect in relation to recent diarrhea and possible lower extremity infection due to recent wounds. Received dose of IV diltiazem 20 mg in ED with improvement in heart rate into the low 110s and started on IV diltiazem drip to furtherimprove rate control. - Add on magnesium and TSH WNL - Monitor on telemetry - Continue IV diltiazem gtt - Received 500 cc normal saline bolus in ED, hold off on further fluids encourage oral intake - Obtain echocardiogram - [id number] score of 2 based on age and diabetes, will cover with Lovenox twice daily for now, but pending further discussion about anticoagulation and if patient converts to SR with low risk forstroke based on other risk factors may not need anticoagulation at discharge Diarrhea Recently been on oral Keflex for bilateral lower extremity cellulitis and switched to clindamycin which he took his first dose of on 11/03 followed by onset of diarrhea the morning of 11/04. He had 4-5episodes of nonbloody watery stools with his last at 9:30 AM. No history of C. Difficile. - Holding off on further antibiotics for now, refer to below - s/p 500 cc normal saline bolus, encourage oral intake - Monitor I&Os - Enteric and C. difficile stool testing ordered in ED, follow results once sample obtained Bilateral LE wounds Bilateral LE edema Sustained injury to left grimaldo approximately 1.5 months ago and right grimaldo 1 month ago with open wounds. He notes left grimaldo with blistering and weeping. He has mild bilateral lower extremity swelling for which he should be wearing compression stockings but has not been. He has not been elevating hislegs. He has been seen in the ED on 10/21, 10/28, and 11/01. He was also seen in the clinic on 10/24. He was initially prescribed oral Keflex for which he took for 4 to 5 days before being told to switchto oral Clindamycin, which he did not take a dose of until 11/03. Sounds as if the patient has not been consistent with wound care or antibiotic use as well notes his dog may of licked his wounds since they occurred. Wounds on exam appear more localized with mild surrounding erythema and serosanguineous drainage from lower extremity swelling rather than spreading cellulitis. Afebrile and no leukocytosis. Patient reports history of MRSA but unable to find this in chart. - Hold off on further antibiotics for now - Elevate bilateral lower extremities - C consult for wound care - Reassess in AM wound appearance, swelling, and other signs of infection if antibiotics should be restarted DM2 Recent hemoglobin A1c of and 7.3 on 09/27/2024. Initial blood glucose of 228. - Continue SUPERINTENDENT SANITATION gabapentin, glipizide, metformin, and actos once med rec completed Moderate persistent asthma Not on maintenance inhaler due to cost of inhalers. Does use albuterol regularly. - As needed levoalbuterol nebulizers due to tachycardia for shortness of breath Anxiety MDD Patient appears very anxious on admission. He reports seeing 3 different therapist but does not currently have follow-up with psychiatry. He previously was on Lexapro but felt this was not very helpful and stopped. He has not yet started the Cymbalta that has been recommended. - Recommend outpatient follow-up with psychiatry and consider starting Cymbalta since anxiety appears uncontrolled Hyperlipidemia - Continue SUPERINTENDENT SANITATION atorvastatin Morbid obesity Noted, complicated care. Right carpal tunnel syndrome Reports planning to have surgery for management on 11/08, this will likely need to be postponed withnew A-fib diagnosis and pending if anticoagulation needed. Awaiting formal med rec to resume SUPERINTENDENT SANITATION medications. Clinically Significant Risk Factors Present on Admission # DMII: A1C = 7.3 % (Ref range: 0.0 - 5.6 %) within past 6 months # Morbid Obesity: Estimated body mass index is 48.3 kg/m?? as calculated from the following: Height as of this encounter: 1.626 m (5' 4). Weight as of this encounter: 127.6 kg (281 lb 6.4 oz). # Financial/Environmental Concerns: # Asthma: noted on problem list DVT Prophylaxis: Enoxaparin (Lovenox) SQ Code Status: Full Code, discussed with patient Disposition: Expected stay >2 midnights Primary Care Physician [place] Chief Complaint Diarrhea and shortness of breath History obtained from discussion with ED provider, Dr. Oliveira, chart review, and interview with patient. History of Present Illness Danae Olvera is a 64 year old male who presents with shortness of breath. The patient states about 1.5 months ago he had an injury to his left lower leg when attempting to carry 3 weeks from [employer] from outside. He tripped and fell onto the cement hitting his left grimaldo resulting in a skin tear. He reports wiping it clean. About 1 month ago while attempting to drive his stick shift car he ended up getting his right leg caught causing another skin tear. He has been trying to do local wound care but has had issues with mild surrounding redness. He has mild lower extremity swelling to both of his lower legs as well as recent blistering and weeping from the areas. He had been seen in clinicand prescribed oral Keflex which he only took for 4 to 5 days. He was seen in the ED 3 different times for evaluation of his wounds where he had local wound care performed and his antibiotics were switched to clindamycin, last seen on 11/01. He had not been taking the clindamycin until 11/03 when he took 1 dose. On 11/03 he felt well until he woke up this morning around 2 AM to take his dogs out and subsequently had 4-5 episodes of diarrhea until about 9:30 when he had his last episode. Notes he had nausea without vomiting and mild abdominal cramping with the symptoms. He was able to take a nap but still felt awful yet decided to go attempt to walk at the park. After only going 30 yards he felt short of breath, palpitations, mild left chest discomfort without radiation, and tired. Denies associated lightheadedness or dizziness. He states he drinks beer occasionally but no regular alcohol use. Previous smoker but quit in 1980. He states he has had a previous infection with MRSA. Patient appears very anxious during interview and has a hard time focusing on one topic. Past Medical History Past Medical History: Diagnosis Date Arthritis of [...] calories (H) 03/26/2016 Obesity 03/15/2014 Past Surgical History Past Surgical History: Procedure Laterality Date DAVINCI EXCISE NODES THORACIC Right 07/23/2020 Procedure: ROBOT-ASSISTED mediastinal cyst excision; Surgeon: Elaina Moreno MD; Location: [facility] OR TOE SURGERY age 16 Prior to Admission Medications Prior to Admission Medications Prescriptions Last Dose Informant Patient Reported? Taking? DULoxetine (CYMBALTA) 30 MG capsule Yes No Sig: Take 30 mg by mouth daily. acetaminophen (TYLENOL) 500 MG tablet Yes No Sig: Take 500-1,000 mg by mouth every 6 hours as needed for mild pain. albuterol (PROAIR HFA/PROVENTIL HFA/VENTOLIN HFA) 108 (90 Base) MCG/ACT inhaler No No Sig: Inhale 2 puffs into the lungs every 6 hours as needed for shortness of breath, wheezing or cough. atorvastatin (LIPITOR) 40 MG tablet No No Sig: Take 1 tablet (40 mg) by mouth every evening. azelastine 137 MCG/SPRAY SOLN Yes No Sig: [place] 1 spray into both nostrils daily. budesonide (PULMICORT) 0.5 MG/2ML neb solution No No Sig: Take 2 mLs (0.5 mg) by nebulization 2 times daily. clindamycin (CLEOCIN) 300 MG capsule No No Sig: Take 1 capsule (300 mg) by mouth 4 times daily for 7 days. diclofenac (VOLTAREN) 1 % topical gel Yes No Sig: Apply 2 g topically 4 times daily as needed. fluticasone (FLONASE) 50 MCG/ACT nasal spray No No Sig: [place] 1 spray into both nostrils daily. gabapentin (NEURONTIN) 300 MG capsule No No Sig: Take 2 capsules (600 mg) by mouth 2 times daily. glipiZIDE (GLUCOTROL XL) 10 MG 24 hr tablet No No Sig: TAKE 2 TABLETS BY MOUTH EVERY DAY ipratropium - albuterol 0.5 mg/2.5 mg, 3mg,/3 mL (DUONEB) 0.5-2.5 (3) MG/3ML neb solution No No Sig: INHALE 3 MLS VIA NEBULIZER 4 TIMES A DAY NEEDED metFORMIN (GLUCOPHAGE XR) 500 MG 24 hr tablet No No Sig: Take 4 tablets (2,000 mg) by mouth daily (with dinner). methylPREDNISolone (MEDROL DOSEPAK) 4 MG tablet therapy pack No No Sig: Follow Package Directions Patient not taking: Reported on 11/01/2024 ondansetron (ZOFRAN) 4 MG tablet No No Sig: Take 1 tablet (4 mg) by mouth every 8 hours as needed for nausea. pioglitazone (ACTOS) 15 MG tablet No No Sig: Take 1 tablet (15 mg) by mouth daily. triamcinolone (KENALOG) 0.1 % external cream No No Sig: Apply topically 2 times daily. Facility-Administered Medications Last Administration Doses Remaining sodium hyaluronate (DUROLANE) injection 60 mg None recorded 1 Allergies Allergies Allergen Reactions Singulair [Montelukast] Pt felt anxious on the medicine. Social History Social History Tobacco Use Smoking status: Former Current packs/day: 0.00 Types: Cigarettes Quit date: 12/03/1983 Years since quittin.9 Passive exposure: Past Smokeless tobacco: Never Substance Use Topics Alcohol use: Not Currently Comment: occ Social History Social History Narrative Not on file Family History Family history reviewed with patient and is noncontributory. Review of Systems A Comprehensive greater than 10 system review of systems was carried out. Pertinent positives and negatives are noted above. Otherwise negative for contributory information. Physical Exam Temp: 99 ??F (37.2 ??C) Temp src: Oral BP: (!) 156/85 Pulse: 110 Resp: 16 SpO2: 96 % O2 Device: None (Room air) Vital Signs with Ranges Temp: [97.8 ??F (36.6 ??C)-99 ??F (37.2 ??C)] 99 ??F (37.2 ??C) Pulse: [86-138] 110 Resp: [11-23] 16 BP: (102-171)/(67-108) 156/85 SpO2: [94 %-100 %] 96 % 281 lbs 6.4 oz GEN: Alert, oriented x 3, appears anxious, no overt distress HEENT: Normocephalic/atraumatic, no scleral icterus, no nasal discharge, mouth moist. CV: irregularly irregular rhythm, tachycardic, no murmur or JVD. S1 + S2 noted, no S3 or S4. LUNGS: Clear to auscultation bilaterally without rales/rhonchi/wheezing/retractions. Symmetric chest rise on inhalation noted. ABD: Active bowel sounds, soft, non-tender/non-distended. No rebound/guarding/rigidity. EXT: 1+ bilateral LE edema. No cyanosis. No acute joint synovitis noted. SKIN: Dry to touch, open wounds to bilateral LE with mild surrounding erythema consistent with morelocalized infection rather than worsening cellulitis, serosanguinous weeping NEURO: Symmetric muscle strength, sensation to touch grossly intact. Coordination symmetric on general exam. No new focal deficits appreciated. Data Data reviewed today: I personally reviewed the EKG tracing showing rate of 129 bpm in A-fib with RVR, PVCs, left anxious deviation, inferior infarct (noted on or before 12/18/2023). Results for orders placed or performed during the hospital encounter of 11/04/24 Comprehensive Metabolic Panel (Limited Occurrences) Status: Abnormal Result Value Ref Range Sodium 135 135 - 145 mmol/L Potassium 4.3 3.4 - 5.3 mmol/L Carbon Dioxide (CO2) 26 22 - 29 mmol/L Anion Gap 8 7 - 15 mmol/L Urea Nitrogen 14.4 8.0 - 23.0 mg/dL Creatinine 0.65 (L) 0.67 - 1.17 mg/dL GFR Estimate >90 >60 mL/min/1.73m2 Calcium 9.3 8.8 - 10.4 mg/dL Chloride 101 98 - 107 mmol/L Glucose 228 (H) 70 - 99 mg/dL Alkaline Phosphatase 91 40 - 150 U/L AST 15 0 - 45 U/L ALT 23 0 - 70 U/L Protein Total 6.6 6.4 - 8.3 g/dL Albumin 4.0 3.5 - 5.2 g/dL Bilirubin Total 0.5 <=1.2 mg/dL NT-proBNP Status: Normal Result Value Ref Range NT-proBNP 46 0 - 229 pg/mL Troponin T, High Sensitivity Status: Normal Result Value Ref Range Troponin T, High Sensitivity 17 <=22 ng/L [place] Draw Status: None Narrative The following orders were created for panel order [place] Draw. Procedure Abnormality Status --------- ------ Extra Blue Top Tube[[id number]] Final result Extra Red Top Tube[[id number]] Final result Please view results for these tests on the individual orders. CBC with platelets and differential Status: Abnormal Result Value Ref Range WBC Count 5.68 4.00 - 11.00 10e3/uL RBC Count 4.79 4.40 - 5.90 10e6/uL Hemoglobin 13.7 13.3 - 17.7 g/dL Hematocrit 40.0 40.0 - 53.0 % MCV 83.5 78.0 - 100.0 fL MCH 28.6 26.5 - 33.0 pg MCHC 34.3 31.5 - 36.5 g/dL RDW 13.3 10.0 - 15.0 % Platelet Count 196 150 - 450 10e3/uL % Neutrophils 78.1 % % Lymphocytes 13.0 % % Monocytes 6.7 % % Eosinophils 1.4 % % Basophils 0.4 % % Immature Granulocytes 0.4 % NRBCs per 100 WBC 0.0 <1.0 /100 Absolute Neutrophils 4.44 1.60 - 8.30 10e3/uL Absolute Lymphocytes 0.74 (L) 0.80 - 5.30 10e3/uL Absolute Monocytes 0.38 0.00 - 1.30 10e3/uL Absolute Eosinophils 0.08 0.00 - 0.70 10e3/uL Absolute Basophils <0.03 0.00 - 0.20 10e3/uL Absolute Immature Granulocytes <0.03 <=0.40 10e3/uL Absolute NRBCs <0.03 10e3/uL Extra Blue Top Tube Status: None Result Value Ref Range Hold Specimen JIC Extra Red Top Tube Status: None Result Value Ref Range Hold Specimen JIC EKG 12 lead Status: None (Preliminary result) Result Value Ref Range Systolic Blood Pressure mmHg Diastolic Blood Pressure mmHg Ventricular Rate 129 BPM Atrial Rate BPM NH Interval ms QRS Duration 86 ms QT 298 ms QTc 436 ms P [place] degrees R AXIS -55 degrees T [place] 58 degrees Interpretation ECG Atrial fibrillation with rapid ventricular response with premature ventricular or aberrantly conducted complexes Left axis deviation Inferior infarct (cited on or before 18-Dec-2023) Abnormal ECG When compared with ECG of 21-Oct-2024 14:20, Atrial fibrillation has replaced Sinus rhythm Vent. rate has increased by 53 bpm CBC with Platelets and Differential (Limited Occurrences) Status: Abnormal Narrative The following orders were created for panel order CBC with Platelets and Differential (Limited Occurrences). Procedure Abnormality Status --------- ------ CBC with platelets and ...[[id number]] Abnormal Final result Please view results for these tests on the individual orders. Dana Rushing PA-C [facility] Securely message with the [email or web address] Console (learn more here) Text page via [employer] Paging/Directory I discussed the patient with Dr. Reed and he agrees with the above plan. Cosigned by Devon Alexander MD at 11/05/2024 8:13 AM CDT Associated attestation - Devon Alexander MD - 11/05/2024 8:13 AM CDT Physician Attestation I have reviewed and discussed with the advanced practice provider their history, physical and plan for Danae Olvera. I did not participate in a shared visit; this is an advanced practice provideronly visit. Devon Alexander MD Date of Service (when I saw the patient): I did not personally see this patient today. documented in this encounter Consult Notes * Bailey Quarles RN - 11/05/2024 4:14 PM CDTAssociated Order(s): CARE MANAGEMENT / SOCIAL WORK IP CONSULT; CARE MANAGEMENT / SOCIAL WORK IP CONSULT Care Management Initial Consult General Information Assessment completed with: , Primary Care Provider verified and updated as needed: Readmission within the last 30 days: Advance Care Planning: Communication Assessment Patient's communication style: spoken language (Filipino or Bilingual) Hearing Difficulty or Deaf: no Wear Glasses or Blind: yes Cognitive Cognitive/Neuro/Behavioral: .WDL except Level of Consciousness: alert Arousal Level: opens eyes spontaneously Orientation: oriented x 4 Mood/Behavior: anxious Best Language: 0 - No aphasia Speech: clear, spontaneous Living Environment: People in home: Current living Arrangements: Able to return to prior arrangements: Family/Social Support: Care provided by: Self Provides care for: No one Support system: Limited Description of Support System: Uninvolved Current Resources: Patient receiving home care services: No Community Resources: None Equipment currently used at home: none Supplies currently used at home: None Employment/Financial: Employment Status: Unemployed Financial Concerns: Unable to afford gas/food until SSDI check 11/17/24 Does the patient's insurance plan have a 3 day qualifying hospital stay waiver? No Lifestyle & Psychosocial Needs: Social Drivers of Health Food Insecurity: High Risk (11/05/2024) Food Insecurity Within the past 12 months, did you worry that your food would run out before you got money to buy more?: Yes Within the past 12 months, did the food you bought just not last and you didn???t have money to getmore?: Yes Depression: At risk (11/01/2024) PHQ-2 PHQ-2 Score: 6 Housing Stability: High Risk (11/05/2024) Housing Stability Do you have housing? : Yes Are you worried about losing your housing?: Yes Tobacco Use: Medium Risk (11/01/2024) Patient History Smoking Tobacco Use: Former Smokeless Tobacco Use: Never Passive Exposure: Past Financial Resource Strain: High Risk (11/05/2024) Financial Resource Strain Within the past 12 months, have you or your family members you live with been unable to get utilities (heat, electricity) when it was really needed?: Yes Alcohol Use: Not At Risk (10/20/2022) AUDIT-C Frequency of Alcohol Consumption: 2-4 times a month Average Number of Drinks: 1 or 2 Frequency of Binge Drinking: Never Transportation Needs: High Risk (11/05/2024) Transportation Needs Within the past 12 months, has lack of transportation kept you from medical appointments, getting your medicines, non-medical meetings or appointments, work, or from getting things that you need?: Yes Physical Activity: Inactive (09/27/2024) Exercise Vital Sign Days of Exercise per Week: 0 days Minutes of Exercise per Session: 0 min Interpersonal Safety: Low Risk (11/05/2024) Interpersonal Safety Do you feel physically and emotionally safe where you currently live?: Yes Within the past 12 months, have you been hit, slapped, kicked or otherwise physically hurt by someone?: No Within the past 12 months, have you been humiliated or emotionally abused in other ways by your partner or ex-partner?: No Stress: No Stress Concern Present (09/27/2024) [place] [employer] - Occupational Stress Questionnaire Feeling of Stress : Not at all Social Connections: Unknown (09/27/2024) Social Connection and Isolation Panel [NHANES] Frequency of Communication with Friends and Family: Not on file Frequency of Social Gatherings with Friends and Family: Once a week Attends Tenriism Services: Not on file Active Member of Clubs or Organizations: Not on file Attends Club or Organization Meetings: Not on file Marital Status: Not on file Health Literacy: Not on file Functional Status: Prior to admission patient needed assistance: Mental Health Status: Current concern - spring encaser through [facility] Chemical Dependency Status: Pt denied Values/Beliefs: Spiritual, Cultural Beliefs, Tenriism Practices, Values that affect care: Discussed ???Partnership in Safe Discharge Planning??? document with patient/family: No Additional Information: Certified Surgical Tech/First Assistant met with patient at bedside related to provider consult and ambulatory hand-in. Patient stated his only current need his assistance to pay for gas to get to job interviews in the coming week as his Social Security disability check will be paid to him on November 17. $25 [employer] station gift card provided to patient. [facility] resource guide provided to patient with instructions to reach out to see what other services he may qualify for. Patient expressed understanding. Patient stated he will transport himself home as he has his vehicle here at the hospital. Patient denied any other needs. Bailey Quarles RN, BSN, PHN chiropractic assistant Management [facility] Acute Care Management Searchable by name on Vocera: Bailey Quarles * Francoise Esparza - 11/05/2024 11:51 AM CDTAssociated Order(s): SPIRITUAL HEALTH SERVICES IP CONSULT; SPIRITUAL HEALTH SERVICES IP CONSULT SPIRITUAL HEALTH SERVICES - Consult Note MS 3 Referral Source/ Reason for Visit: Staff consult for emotional support. Summary and Recommendations - Compassionately listened to patient articulate his present circumstances. He describes, Not being able to catch my breath when I walk, even a few steps; feeling my heart race, and being really anxious. Patient further describes being estranged or alienated from all of his nuclear family members. He says his wants to divorce him due to his mental and physical health diagnoses. He believes his family misunderstands him to be suicidal. His two sons barely speak to him; and his daughter does notwant him to spend time with her son. He shared that he has a therapist whom he trusts. He and his have also tried marriage counseling, but it didn't work. 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 He says he is doing this job for financial reasons; in case his leaves. Plan: He is currently scheduled to discharge 11/06/24. Patient will call his home temple hedis analyst withany spiritual needs. [facility] remains available for emotional support upon request. . Francoise Esparza, M. Div. Staff Special Duty Nurse [facility] available 04/10 for emergent requests/ referrals, either by paging the on- call feed mixer helper or by entering an ISABEL/STAT consult in [facility], which will also page the on-call feed mixer helper. Assessment Saw pt Danae Olvera regarding staff consult request for emotional support. Patient/Family Understanding of Illness and Goals of Care - Patient was admitted to due to shortness of breath. Medical record also lists wounds on left grimaldo, cardiac issues and other hospital problems. Distress and Loss - He describes numerous stressors in the last six months, including loss of job, increased anxiety & other mental health concerns, and intense family conflict. Strengths, Coping and Resources - Patient describes, Having nobody to count on right now. Meaning, Beliefs and Spirituality - Patient is [employer]. He is affiliated with [employer] in [place]. * Janny Moreno, RN - 11/05/2024 8:30 AM CDTAssociated Order(s): WOUND OSTOMY CONTINENCE NURSE IP CONSULT Images from the original note were not included. [facility] Nurse Inpatient Assessment Consulted for: Sancho shins Summary: Patient states most areas of injury started as little blisters following leg swelling, butsome are also the results of bug bites. [facility] nurse follow-up plan: weekly Patient History (according to provider note(s): History of Present Illness Danae Olvera is a 64 year old male who presents with shortness of breath. The patient states about 1.5 months ago he had an injury to his left lower leg when attempting to carry 3 weeks from [employer] from outside. He tripped and fell onto the cement hitting his left grimaldo resulting in a skin tear. He reports wiping it clean. About 1 month ago while attempting to drive his stick shift car he ended up getting his right leg caught causing another skin tear. He has been trying to do local wound care but has had issues with mild surrounding redness. He has mild lower extremity swelling to both of his lower legs as well as recent blistering and weeping from the areas. He had been seen in clinicand prescribed oral Keflex which he only took for 4 to 5 days. He was seen in the ED 3 different times for evaluation of his wounds where he had local wound care performed and his antibiotics were switched to clindamycin, last seen on 11/01. He had not been taking the clindamycin until 11/03 when he took 1 dose. On 11/03 he felt well until he woke up this morning around 2 AM to take his dogs out and subsequently had 4-5 episodes of diarrhea until about 9:30 when he had his last episode. Notes he had nausea without vomiting and mild abdominal cramping with the symptoms. He was able to take a nap but still felt awful yet decided to go attempt to walk at the park. After only going 30 yards he felt short of breath, palpitations, mild left chest discomfort without radiation, and tired. Denies associated lightheadedness or dizziness. He states he drinks beer occasionally but no regular alcohol use. Previous smoker but quit in 1980. He states he has had a previous infection with MRSA. Patient appears very anxious during interview and has a hard time focusing on one topic. Assessment: Wound location: BLE Last photo: Both take 11/05 Wound due to: See summary Wound history/plan of care: Wound base: L grimaldo with one open wound measuring 2 cm x 1 cm with pink, viable wound bed with scantamount of serous drainage. Remaining L grimaldo and R grimaldo with scattered areas of dried drainage. Palpation of the wound bed: normal Drainage: none Description of drainage: serous Measurements (length x width x depth, in cm): See above Tunneling: N/A Undermining: N/A Periwound skin: Intact Color: pink Temperature: normal Odor: none Pain: denies Pain interventions prior to dressing change: patient tolerated well and slow and gentle cares Treatment goal: Heal , Increase moisture , Maintain (prevention of deterioration), and Protection STATUS: initial assessment this admission Supplies ordered: supplies stored on unit Treatment Plan: BLE - Daily Cleanse with water; gently dry. Apply Mepilex to open wound on R grimaldo (this only needs to be changed every 3 days). Apply Sween Cream to exposed skin on BLE. Orders: Written RECOMMEND PRIMARY TEAM ORDER: None, at this time Education provided: plan of care Discussed plan of care with: Patient Notify WOC if wound(s) deteriorate. Nursing to notify the Provider(s) and re-consult the WOC Nurse if new skin concern. DATA: Current support surface: Standard Standard gel mattress (Isoflex) Containment of urine/stool: Continent of bladder and Continent of bowel BMI: Body mass index is 47.74 kg/m??. Active diet order: Orders Placed This Encounter Combination Diet 2 gm Sodium Diet Output: I/O last 3 completed shifts: In: 480 [P.O.:480] Out: - Labs: Recent Labs Lab 11/04/24 1204 11/04/24 1100 ALBUMIN -- 4.0 HGB 13.7 -- WBC 5.68 -- Pressure injury risk assessment: Sensory Perception: 3-->slightly limited Moisture: 4-->rarely moist Activity: 3-->walks occasionally Mobility: 3-->slightly limited Nutrition: 3-->adequate Friction and Shear: 3-->no apparent problem Fransico Score: 19 SENDY Hall RN CWOCN Pager no longer is use, please contact through [employer] [facility]: [facility] documented in this encounter ED Notes * Kelsi Amos RN - 11/04/2024 2:12 PM CDT [facility] ED Nurse Handoff Report ED Chief complaint: Diarrhea and Shortness of Breath . ED Diagnosis: Final diagnoses: Atrial fibrillation with RVR (H) Allergies: Allergies Allergen Reactions Singulair [Montelukast] Pt felt anxious on the medicine. Code Status: Full Code Activity level - Baseline/Home: independent. Activity Level - Current: assist of 1. Lift room needed: No. Bariatric: No Crew Boss Needed: No Isolation: No. Infection: Not Applicable C-Diff Pending. Respiratory status: Room air Vital Signs (within 30 minutes): Vitals: 11/04/24 1340 11/04/24 1349 11/04/24 1359 11/04/24 1409 BP: 137/89 (!) 148/88 (!) 141/89 Pulse: 115 117 113 112 Resp: 13 11 Temp: SpO2: 95% 96% 97% 96% Weight: Cardiac Rhythm: , Pain level: Patient confused: No. Patient Falls Risk: bed/chair alarm on, nonskid shoes/slippers when out of bed, and activity supervised. Elimination Status: Has voided Patient Report - Initial Complaint: Diarrhea, headache, SOB. Focused Assessment: Danae Olvera is a 64 year old male with a history of asthma, obesity, generalized anxiety disorder, coronary artery disease, type 2 diabetes mellitus, and acid reflux presenting for evaluation of diarrhea. The patient endorses 4-5 episodes of diarrhea this morning, starting at 0200, and feeling like he is burning up. He has not been able to eat or drink this morning due tonausea. The patient normally walks on Sundays, but he was only able to walk 10 yards this morning because he started to have trouble breathing. His rescue inhaler and nebulizer did not work as well as they normally do. The patient had a little bit of left sided chest pain earlier which is gone now.He also endorses generalized weakness and right-sided abdominal soreness. He was recently diagnosedwith left lower leg cellulitis. He was originally prescribed Keflex but was switched to clindamycin3 days ago. His leg is now a little more red now than it was a few days ago but he denies other changes in his leg. The patient has a history of anxiety and occasionally get panic attacks which he man ages without medication. He recent stopped taking his antidepressant because he ran out of medication, and he feels better since being off of them. The patient denies fever, vomiting, and abdominal cramping. Abnormal Results: Labs Ordered and Resulted from Time of ED Arrival to Time of ED Departure COMPREHENSIVE METABOLIC PANEL (LIMITED OCCURRENCES) - Abnormal Result Value Sodium 135 Potassium 4.3 Carbon Dioxide (CO2) 26 Anion Gap 8 Urea Nitrogen 14.4 Creatinine 0.65 (*) GFR Estimate >90 Calcium 9.3 Chloride 101 Glucose 228 (*) Alkaline Phosphatase 91 AST 15 ALT 23 Protein Total 6.6 Albumin 4.0 Bilirubin Total 0.5 CBC WITH PLATELETS AND DIFFERENTIAL - Abnormal WBC Count 5.68 RBC Count 4.79 Hemoglobin 13.7 Hematocrit 40.0 MCV 83.5 MCH 28.6 MCHC 34.3 RDW 13.3 Platelet Count 196 % Neutrophils 78.1 % Lymphocytes 13.0 % Monocytes 6.7 % Eosinophils 1.4 % Basophils 0.4 % Immature Granulocytes 0.4 NRBCs per 100 WBC 0.0 Absolute Neutrophils 4.44 Absolute Lymphocytes 0.74 (*) Absolute Monocytes 0.38 Absolute Eosinophils 0.08 Absolute Basophils <0.03 Absolute Immature Granulocytes <0.03 Absolute NRBCs <0.03 NT-PROBNP - Normal NT-proBNP 46 TROPONIN T, HIGH SENSITIVITY - Normal Troponin T, High Sensitivity 17 C. DIFFICILE TOXIN B PCR WITH REFLEX TO C. DIFFICILE EIA FOCUSED ENTERIC PATHOGEN PANEL BY PCR No orders to display Treatments provided: See MAR Family Comments: NA OBS brochure/video discussed/provided to patient: N/A ED Medications: Medications diltiazem (CARDIZEM) 125 mg in dextrose 5% 125 mL infusion (10 mg/hr Intravenous Rate/Dose Change 11/04/24 1403) sodium chloride 0.9% BOLUS 500 mL (0 mLs Intravenous Stopped 11/04/24 1316) diltiazem (CARDIZEM) injection 20 mg (20 mg Intravenous $Given 11/04/24 1207) Drips infusing: Yes For the majority of the shift this patient was Green. Interventions performed were NA. Sepsis treatment initiated: No Cares/treatment/interventions/medications to be completed following ED care: Dilt drip, cardiac monitoring ED Nurse Name: Martha Noel RN 2:12 PM RECEIVING UNIT ED HANDOFF REVIEW Above ED Nurse Handoff Report was reviewed: Yes Reviewed by: Kelsi Amos RN on November 04, 2024 at 2:21 PM Palmer Dueñas called the ED to inform them the note was read: Yes * Martha Noel RN - 11/04/2024 10:12 AM CDT Bed: ED15 Expected date: Expected time: Means of arrival: Comments: Rm 39 * Preston Oliveira MD - 11/04/2024 9:08 AM CDT Emergency Department Note History of Present Illness Chief Complaint Diarrhea and Shortness of Breath HPI Danae Olvera is a 64 year old male with a history of asthma, obesity, generalized anxiety disorder, coronary artery disease, type 2 diabetes mellitus, and acid reflux presenting for evaluation ofdiarrhea. The patient endorses 4-5 episodes of diarrhea this morning, starting at 0200, and feelinglike he is burning up. He has not been able to eat or drink this morning due to nausea. The patientnormally walks on Sundays, but he was only able to walk 10 yards this morning because he started tohave trouble breathing. His rescue inhaler and nebulizer did not work as well as they normally do. The patient had a little bit of left sided chest pain earlier which is gone now. He also endorses gen eralized weakness and right-sided abdominal soreness. He was recently diagnosed with bilateral lower leg cellulitis. He was originally prescribed Keflex but was switched to clindamycin 3 days ago. His leg is now a little more red now than it was a few days ago but he denies other changes in his leg. The patient has a history of anxiety and occasionally get panic attacks which he manages without medication. He recent stopped taking his antidepressant because he ran out of medication, and he feels better since being off of them. The patient denies fever, vomiting, and abdominal cramping. Independent Historian None Review of External Notes Reviewed telephone nurse triage note from before arrival. Reviewed multiple ED notes including 11/01and 10/28. Also reviewed PCP note from 11/01. Past Medical History Medical History and Problem [...] excess calories (H) 03/26/2016 Obesity 03/15/2014 Medications acetaminophen (TYLENOL) 500 MG tablet albuterol (PROAIR HFA/PROVENTIL HFA/VENTOLIN HFA) 108 (90 Base) MCG/ACT inhaler atorvastatin (LIPITOR) 40 MG tablet azelastine 137 MCG/SPRAY SOLN budesonide (PULMICORT) 0.5 MG/2ML neb solution clindamycin (CLEOCIN) 300 MG capsule diclofenac (VOLTAREN) [...] tablet triamcinolone (KENALOG) 0.1 % external cream Surgical History Past Surgical History: Procedure Laterality Date DAVINCI EXCISE NODES THORACIC Right 07/23/2020 Procedure: ROBOT-ASSISTED mediastinal cyst excision; Surgeon: Elaina Moreno MD; Location: [facility] OR TOE SURGERY age 16 Physical Exam Patient Vitals for the past 24 hrs: BP Temp Pulse Resp SpO2 Weight 11/04/24 1340 137/89 -- 115 22 95 % -- 11/04/24 1320 115/76 -- 112 18 94 % -- 11/04/24 1228 -- -- 113 18 95 % -- 11/04/24 1218 (!) 133/92 -- 103 14 97 % -- 11/04/24 1208 (!) 157/99 -- (!) 123 12 95 % -- 11/04/24 1158 (!) 171/97 -- -- -- -- -- 11/04/24 1148 (!) 140/99 -- (!) 121 19 94 % -- 11/04/24 1134 102/67 -- 114 20 95 % -- 11/04/24 1119 137/85 -- 118 17 96 % -- 11/04/24 1102 (!) 143/82 -- (!) 130 11 94 % -- 11/04/24 1035 -- -- (!) 138 22 94 % -- 11/04/24 1034 -- -- (!) 123 16 97 % -- 11/04/24 0858 -- -- 86 -- -- -- 11/04/24 0856 137/87 97.8 ??F (36.6 ??C) -- 20 100 % 129.9 kg (286 lb 6 oz) Physical Exam Nursing note and vitals reviewed. HENT: Mouth/Throat: Moist mucous membranes. Eyes: EOMI, nonicteric sclera Cardiovascular: tachycardic, irregularly irregular rhythm, no murmur Pulmonary/Chest: Effort normal and breath sounds normal. No respiratory distress. No wheezes. No rales. Abdominal: Soft. Nontender, nondistended, no guarding or rigidity. Musculoskeletal: Normal range of motion. Neurological: Alert. Moves all extremities spontaneously. Skin: Skin is warm and dry. Healing wounds noted to bilateral lower extremities with surrounding nonconfluent erythema. Non-pitting edema noted. Diagnostics Lab Results Labs Ordered and Resulted from Time of ED Arrival to Time of ED Departure COMPREHENSIVE METABOLIC PANEL (LIMITED OCCURRENCES) - Abnormal Result Value Sodium 135 Potassium 4.3 Carbon Dioxide (CO2) 26 Anion Gap 8 Urea Nitrogen 14.4 Creatinine 0.65 (*) GFR Estimate >90 Calcium 9.3 Chloride 101 Glucose 228 (*) Alkaline Phosphatase 91 AST 15 ALT 23 Protein Total 6.6 Albumin 4.0 Bilirubin Total 0.5 CBC WITH PLATELETS AND DIFFERENTIAL - Abnormal WBC Count 5.68 RBC Count 4.79 Hemoglobin 13.7 Hematocrit 40.0 MCV 83.5 MCH 28.6 MCHC 34.3 RDW 13.3 Platelet Count 196 % Neutrophils 78.1 % Lymphocytes 13.0 % Monocytes 6.7 % Eosinophils 1.4 % Basophils 0.4 % Immature Granulocytes 0.4 NRBCs per 100 WBC 0.0 Absolute Neutrophils 4.44 Absolute Lymphocytes 0.74 (*) Absolute Monocytes 0.38 Absolute Eosinophils 0.08 Absolute Basophils <0.03 Absolute Immature Granulocytes <0.03 Absolute NRBCs <0.03 NT-PROBNP - Normal NT-proBNP 46 TROPONIN T, HIGH SENSITIVITY - Normal Troponin T, High Sensitivity 17 C. DIFFICILE TOXIN B PCR WITH REFLEX TO C. DIFFICILE EIA FOCUSED ENTERIC PATHOGEN PANEL BY PCR Imaging No orders to display EKG ECG taken at 0951, ECG read at 1009 Atrial fibrillation with rapid ventricular response with premature ventricular or aberrantly conducted complexes Left axis deviation Inferior infarct, age undetermined Rate 129 bpm. NH interval * ms. QRS duration 86 ms. QT/QTc 298/436 ms. P-R-T axes * -55 58. Independent Interpretation None ED Course Medications Administered Medications diltiazem (CARDIZEM) 125 mg in dextrose 5% 125 mL infusion (5 mg/hr Intravenous $New Bag 11/04/24 1316) sodium chloride 0.9% BOLUS 500 mL (0 mLs Intravenous Stopped 11/04/24 1316) diltiazem (CARDIZEM) injection 20 mg (20 mg Intravenous $Given 11/04/24 1207) Procedures Procedures Discussion of Management Admitting Hospitalist, Dr. Alexander ED Course ED Course as of 11/04/24 1401 Sun Nov 04, 2024 0923 I obtained history and performed physical exam. 1328 I spoke with RICARDO Tsai regarding admission. They accepted for Dr. Alexander. 1342 I rechecked on the patient Additional Documentation None Medical Decision Making / Diagnosis [facility] Diagnoses: None MIPS None MDM Danae Olvera is a 64 year old male who presents with complaints of diarrhea, dyspnea. Patient quite anxious appearing. Suspect diarrhea is due to initiation of clindamycin. As he only recently began clinda, doubt this represents a C. difficile, but stool studies are pending. No significant abdominal tenderness. His lower extremities show some localized erythema, but I doubt this is cellulitis, especially as patient has been on antibiotics without real improvement nor worsening of redness. Suspect this is more due to venous stasis. Patient noted to be in A-fib with RVR. This appears to be a new diagnosis for the patient. Suspect this is related to the dyspnea that he presented with. Attempted rate control with IV diltiazem. After bolus, heart rate rebounded pretty quickly. Therefore continuous drip initiated. Patient with [id number] score of at least 2 meriting anticoagulation, butpt's anxiety made it quite difficult to have a discussion regarding this. Will defer to hospitalistteam. Patient had planned on leaving A, but after several discussions, he is consenting to admission for further evaluation and treatment. Hospitalist RICARDO accepts for admission. Patient will be admitted to [facility] bed due to being on diltiazem drip. Critical care time 45 minutes excluding procedures. Disposition The patient was admitted to the hospital. Diagnosis ICD-10-CM 1. Atrial fibrillation with RVR (H) I48.91 Discharge Medications New Prescriptions No medications on file Scribe Disclosure: I, Opal Peck, am serving as a scribe at 9:09 AM on 11/04/2024 to document services personally performed by Preston Oliveira MD based on my observations and the provider's statements to me. Preston Oliveira MD 11/04/241854 * Cynthia Marin RN - 11/04/2024 8:54 AM CDT Pt arrives with 3 episodes of diarrhea that started at 0400 this morning. States a headache is starting. When he had the episodes of diarrhea he states having onset of SOB during this, used at home nebulizer and rescue inhaler which help slightly. Currently taking abx for leg infection. documented in this encounter Miscellaneous Notes * Plan of Care - Akosua Aguirre RN - 11/05/2024 6:48 PM CDT Temp: 98 ??F (36.7 ??C) Temp src: Oral BP: 122/75 Pulse: 80 Resp: 16 SpO2: 94 % O2 Device: None (Room air) Shift Summary (1499 - 1929): A/O x4, anxious but cooperative. VSS, afebrile. O2 > 90% on RA. Denies pain, nausea, dizziness. Tele: SR, HR 70-90s. BG 156. approved of discharging pt home after walk test. AVS and medicationsgiven to pt. All answers questioned. Pt verbalized understanding and had no other questions. All unused meds discarded per policy. PIV removed per software support analyst. All belongings returned to pt. Pt discharged @ 1930 w/ wheelchair. Zio patch will be mailed out, pt aware. Goal Outcome Evaluation: Plan of Care Reviewed With: patient Overall Patient Progress: improving PRIMARY DIAGNOSIS: GENERIC NURSING OUTPATIENT/OBSERVATION GOALS TO BE MET BEFORE DISCHARGE: ADLs back to baseline: Yes Activity and level of assistance: Up with standby assistance. Pain status: Pain free. Return to near baseline physical activity: Yes Sports Specialist Nurse Safe discharge environment identified: Yes Barriers to discharge: No Entered by: Akosua Aguirre RN 11/05/2024 6:54 PM Please review provider order for any additional goals. Nurse to notify provider when observation goals have been met and patient is ready for discharge. Problem: Adult Inpatient Plan of Care Goal: Plan of Care Review Description: The Plan of Care Review/Shift note should be completed every shift. The Outcome Evaluation is a brief statement about your assessment that the patient is improving, declining, or no change. This information will be displayed automatically on your shift note. Outcome: Met Flowsheets (Taken 11/05/20241846) Plan of Care Reviewed With: patient Overall Patient Progress: improving Goal: Patient-Specific Goal (Individualized) Description: You can add care plan individualizations to a care plan. Examples of Individualizationmight be: Parent requests to be called daily at 9am for status, I have a hard time hearing out of my right ear, or Do not touch me to wake me up as it startles me. Outcome: Met Goal: Absence of Hospital-Acquired Illness or Injury Outcome: Met Intervention: Identify and Manage Fall Risk Recent Flowsheet Documentation Taken 11/05/20241707 by Akosua Aguirre RN Safety Promotion/Fall Prevention: activity supervised assistive device/personal items within reach clutter free environment maintained nonskid shoes/slippers when out of bed patient and family education room door open room near nurse's station room organization consistent safety round/check completed supervised activity Intervention: Prevent Skin Injury Recent Flowsheet Documentation Taken 11/05/20241707 by Akosua Aguirre RN Body Position: position changed independently Intervention: Prevent and Manage VTE (Venous Thromboembolism) Risk Recent Flowsheet Documentation Taken 11/05/20241707 by Akosua Aguirre RN VTE Prevention/Management: patient refused intervention Goal: Optimal Comfort and Wellbeing Outcome: Met Goal: Readiness for Transition of Care Outcome: Met Problem: Delirium Goal: Optimal Coping Outcome: Met Goal: Improved Behavioral Control Outcome: Met Intervention: Minimize Safety Risk Recent Flowsheet Documentation Taken 11/05/20241707 by Akosua Aguirre RN Enhanced Safety Measures: review medications for side effects with activity room near unit station Goal: Improved Attention and Thought Clarity Outcome: Met Goal: Improved Sleep Outcome: Met Problem: Dysrhythmia Goal: Normalized Cardiac Rhythm Outcome: Met Intervention: Monitor and Manage Cardiac Rhythm Effect Recent Flowsheet Documentation Taken 11/05/20241707 by Akosua Aguirre RN VTE Prevention/Management: patient refused intervention Problem: Fall Injury Risk Goal: Absence of Fall and Fall-Related Injury Outcome: Met Intervention: Identify and Manage Contributors Recent Flowsheet Documentation Taken 11/05/20241707 by Akosua Aguirre RN Medication Review/Management: medications reviewed Intervention: Promote Injury-Free Environment Recent Flowsheet Documentation Taken 11/05/20241707 by Akosua Aguirre RN Safety Promotion/Fall Prevention: activity supervised assistive device/personal items within reach clutter free environment maintained nonskid shoes/slippers when out of bed patient and family education room door open room near nurse's station room organization consistent safety round/check completed supervised activity Problem: Infection Goal: Absence of Infection Signs and Symptoms Outcome: Met Problem: Gas Exchange Impaired Goal: Optimal Gas Exchange Outcome: Met Problem: Comorbidity Management Goal: Maintenance of Asthma Control Outcome: Met Intervention: Maintain Asthma Symptom Control Recent Flowsheet Documentation Taken 11/05/20241707 by Akosua Aguirre RN Medication Review/Management: medications reviewed Goal: Blood Glucose Levels Within Targeted Range Outcome: Met Intervention: Monitor and Manage Glycemia Recent Flowsheet Documentation Taken 11/05/20241707 by Akosua Aguirre RN Medication Review/Management: medications reviewed Problem: IP NDI OP/OBS DISCHARGE CHECKLIST Goal: Returns to baseline functional status Outcome: Met Flowsheets (Taken 11/05/20241846) Returns to baseline functional status: Yes Goal: Vital signs normal or at patient baseline Outcome: Met Flowsheets (Taken 11/05/20241846) Vital signs normal or at patient baseline: Yes Goal: Diagnostic tests/labs and consults completed and resulted Outcome: Met Flowsheets (Taken 11/05/20241846) Diagnostic tests/labs and consults completed and resulted: Yes Goal: Adequate pain control on oral analgesics Outcome: Met Flowsheets (Taken 11/05/20241846) Adequate pain control on oral analgesics: N/A Goal: Tolerating oral antibiotics or has plans for home infusion setup Outcome: Met Flowsheets (Taken 11/05/20241846) Tolerating oral antibiotics or has plans for home infusion setup: Yes Goal: TIA: Free from ACUTE neuro deficits Outcome: Met Flowsheets (Taken 11/05/20241846) TIA: Free from ACUTE neuro deficits: Yes Goal: SYNCOPY: No further episodes of syncope and any new arrhythmia addressed with controlled heart rates Outcome: Met Flowsheets (Taken 11/05/20241846) SYNCOPE: No further episodes of syncope and any new arrhythmia addressed with controlled heart rates: Yes Goal: Infection is improving Outcome: Met Flowsheets (Taken 11/05/20241846) Infection is improving: Yes Goal: Dyspnea improved and O2 sats greater than 88% on room air or prior home oxygen levels Outcome: Met Flowsheets (Taken 11/05/20241846) Dyspnea improved and O2 sats greater than 88% on room air or prior home oxygen levels: Yes * Plan of Care - Christy Mckeon RN - 11/05/2024 2:52 PM CDT Vss, no co pain/cp/sob, nguyễn improved and now tolerating RA with sats in the mid 90s%. Tele SR. BG 192, 172. Echo done with EF 55-60%, WOC seen today and did wound cares to BLE (encouraged pt to elevate BLE while up in the chair but has declined), SH seen per pt request, see note for details, SM/SW consulted. Up with SBA+gb, obese, alarms on for safety as pt can be impulsive and not call for assistance at times, up to chair the entire shift, falls risk. Pt has frequent and repeated requests, anxiety. IMC status dc'd, HR controlled off drip since 0100 per report, pt is hoping to be able to discharge today. Continue poc and monitoring. 2:54 PM has requested that the pt ambulate the halls later this afternoon and have his O2 monitored (road test). Goal Outcome Evaluation: Plan of Care Reviewed With: patient Overall Patient Progress: improvingOverall Patient Progress: improving Outcome Evaluation: HR and rhythm stable, frequent repeated requests this shift, anxious Problem: Fall Injury Risk Goal: Absence of Fall and Fall-Related Injury Outcome: Not Progressing Intervention: Identify and Manage Contributors Recent Flowsheet Documentation Taken 11/05/2024 0941 by Christy Mckeon RN Medication Review/Management: medications reviewed Intervention: Promote Injury-Free Environment Recent Flowsheet Documentation Taken 11/05/2024 1417 by Christy Mckeon RN Safety Promotion/Fall Prevention: safety round/check completed Taken 11/05/2024 1331 by Christy Mckeon RN Safety Promotion/Fall Prevention: safety round/check completed Taken 11/05/2024 1210 by Christy Mckeon RN Safety Promotion/Fall Prevention: safety round/check completed Taken 11/05/2024 1112 by Christy Mckeon RN Safety Promotion/Fall Prevention: safety round/check completed Taken 11/05/2024 1002 by Christy Mckeon RN Safety Promotion/Fall Prevention: safety round/check completed Taken 11/05/2024 0958 by Christy Mckeon RN Safety Promotion/Fall Prevention: safety round/check completed Taken 11/05/2024 0941 by Christy Mckeon RN Safety Promotion/Fall Prevention: activity supervised assistive device/personal items within reach treat underlying cause treat reversible contributory factors supervised activity safety round/check completed room organization consistent room near nurse's station room door open patient and family education nonskid shoes/slippers when out of bed lighting adjusted increase visualization of patient increased rounding and observation clutter free environment maintained Taken 11/05/2024 0856 by Christy Mckeon RN Safety Promotion/Fall Prevention: safety round/check completed Taken 11/05/2024 0822 by Christy Mckeon RN Safety Promotion/Fall Prevention: safety round/check completed Taken 11/05/2024 0742 by Christy Mckeon RN Safety Promotion/Fall Prevention: safety round/check completed Problem: Comorbidity Management Goal: Blood Glucose Levels Within Targeted Range Outcome: Not Progressing Intervention: Monitor and Manage Glycemia Recent Flowsheet Documentation Taken 11/05/2024 0941 by Christy Mckeon RN Medication Review/Management: medications reviewed Problem: Adult Inpatient Plan of Care Goal: Plan of Care Review Description: The Plan of Care Review/Shift note should be completed every shift. The Outcome Evaluation is a brief statement about your assessment that the patient is improving, declining, or no change. This information will be displayed automatically on your shift note. Outcome: Progressing Flowsheets (Taken 11/05/2024 1451) Outcome Evaluation: HR and rhythm stable, frequent repeated requests this shift, anxious Plan of Care Reviewed With: patient Overall Patient Progress: improving Goal: Patient-Specific Goal (Individualized) Description: You can add care plan individualizations to a care plan. Examples of Individualizationmight be: Parent requests to be called daily at 9am for status, I have a hard time hearing out of my right ear, or Do not touch me to wake me up as it startles me. Outcome: Progressing Goal: Absence of Hospital-Acquired Illness or Injury Outcome: Progressing Intervention: Identify and Manage Fall Risk Recent Flowsheet Documentation Taken 11/05/2024 1417 by Christy Mckeon RN Safety Promotion/Fall Prevention: safety round/check completed Taken 11/05/2024 1331 by Christy Mckeon RN Safety Promotion/Fall Prevention: safety round/check completed Taken 11/05/2024 1210 by Christy Mckeon RN Safety Promotion/Fall Prevention: safety round/check completed Taken 11/05/2024 1112 by Christy Mckeon RN Safety Promotion/Fall Prevention: safety round/check completed Taken 11/05/2024 1002 by Christy Mckeon RN Safety Promotion/Fall Prevention: safety round/check completed Taken 11/05/2024 0958 by Christy Mckeon RN Safety Promotion/Fall Prevention: safety round/check completed Taken 11/05/2024 0941 by Christy Mckeon RN Safety Promotion/Fall Prevention: activity supervised assistive device/personal items within reach treat underlying cause treat reversible contributory factors supervised activity safety round/check completed room organization consistent room near nurse's station room door open patient and family education nonskid shoes/slippers when out of bed lighting adjusted increase visualization of patient increased rounding and observation clutter free environment maintained Taken 11/05/2024 0856 by Christy Mckeon, RN Safety Promotion/Fall Prevention: safety round/check completed Taken 11/05/2024 0822 by Christy Mckeon RN Safety Promotion/Fall Prevention: safety round/check completed Taken 11/05/2024 0742 by Christy Mckeon RN Safety Promotion/Fall Prevention: safety round/check completed Intervention: Prevent Skin Injury Recent Flowsheet Documentation Taken 11/05/2024 0941 by Christy Mckeon RN Body Position: position changed independently Goal: Optimal Comfort and Wellbeing Outcome: Progressing Goal: Readiness for Transition of Care Outcome: Progressing Problem: Dysrhythmia Goal: Normalized Cardiac Rhythm Outcome: Progressing Problem: Infection Goal: Absence of Infection Signs and Symptoms Outcome: Progressing Intervention: Prevent or Manage Infection Recent Flowsheet Documentation Taken 11/05/2024 0941 by Christy Mckeon RN Isolation Precautions: enteric precautions discontinued Problem: Gas Exchange Impaired Goal: Optimal Gas Exchange Outcome: Progressing Problem: Comorbidity Management Goal: Maintenance of Asthma Control Outcome: Progressing Intervention: Maintain Asthma Symptom Control Recent Flowsheet Documentation Taken 11/05/2024 0941 by Christy Mckeon RN Medication Review/Management: medications reviewed * Provider Notification - Christy Mckeon RN - 11/05/2024 7:[address] alexander: 1. pt converted yesterday at 2000 per report, then dilt drip stopped at 0100 for low HR but nothingpo ordered yet, do you want to order something for rate control? now in the 70-80s. 2. do you want to dc IMC at some point today? please advise as indicated, thanks. 8:17 AM Ok to discontinue IMC, hold off on further meds at this time. * Plan of Care - Yelena Ureña RN - 11/05/2024 2:41 AM CDT End of Shift Summary [id number] Pertinent assessments: A&O x 4, anxious. VSS RA awake/ 2-4L sleeping, some soft BP's while on dilt gtt. TELE SR/SB, HR mostly in the 60's overnight. No BM overnight, voiding well. LS dim. Stbdy. Pain: c/o pain while breathing - RT paged and aware, ativan alleviated pain per pt. Shift Events: dilt gtt stopped d/t HR in the 50's around 0100. Pt reported feeling like he was having an anxiety attack - SOB, pain while breathing, feeling like being choked, and anxious. Crosscoverpaged and PO ativan ordered and given. Pt tolerated well - sleeping shortly after. Continuous pulseox on overnight w/ alarms audible. Conditional 12-lead released and obtained as pt converted to SR earlier in the day and one had yet to be collected. C.diff/enteric neg. IMC status Plan: ECHO, woc consult. Elevate LE's. Discharge: tbd. Psyc outpt consult Temp: 97.6 ??F (36.4 ??C) Temp src: Oral BP: 123/75 Pulse: 64 Resp: 18 SpO2: 95 % (some desatting into 88, pt sleeping) O2 Device: Nasal cannula Oxygen Delivery: 4 LPM Goal Outcome Evaluation: Plan of Care Reviewed With: patient Overall Patient Progress: improvingOverall Patient Progress: improving Outcome Evaluation: dilt stopped d/t low HR. SB in the 50's. Anxiety attack overnight Problem: Adult Inpatient Plan of Care Goal: Plan of Care Review Description: The Plan of Care Review/Shift note should be completed every shift. The Outcome Evaluation is a brief statement about your assessment that the patient is improving, declining, or no change. This information will be displayed automatically on your shift note. Outcome: Progressing Flowsheets (Taken 11/05/2024 024) Outcome Evaluation: dilt stopped d/t low HR. SB in the 50's. Anxiety attack overnight Plan of Care Reviewed With: patient Overall Patient Progress: improving Goal: Patient-Specific Goal (Individualized) Description: You can add care plan individualizations to a care plan. Examples of Individualizationmight be: Parent requests to be called daily at 9am for status, I have a hard time hearing out of my right ear, or Do not touch me to wake me up as it startles me. Outcome: Progressing Goal: Absence of Hospital-Acquired Illness or Injury Outcome: Progressing Intervention: Identify and Manage Fall Risk Recent Flowsheet Documentation Taken 11/05/2024 0140 by Yelena Ureña RN Safety Promotion/Fall Prevention: activity supervised Taken 11/05/2024 0119 by Yelena Ureña RN Safety Promotion/Fall Prevention: safety round/check completed Taken 11/05/2024 002 by Yelena Ureña RN Safety Promotion/Fall Prevention: safety round/check completed Intervention: Prevent Skin Injury Recent Flowsheet Documentation Taken 11/05/2024 0140 by Yelena Ureña RN Body Position: position changed independently Taken 11/04/2024 2341 by Yelena Ureña RN Body Position: position changed independently Intervention: Prevent and Manage VTE (Venous Thromboembolism) Risk Recent Flowsheet Documentation Taken 11/05/202427 by Yelena Ureña RN VTE Prevention/Management: (ambulates often) patient refused intervention Intervention: Prevent Infection Recent Flowsheet Documentation Taken 11/05/202427 by Yelena Ureña RN Infection Prevention: equipment surfaces disinfected rest/sleep promoted single patient room provided Goal: Optimal Comfort and Wellbeing Outcome: Progressing Intervention: Provide Person-Centered Care Recent Flowsheet Documentation Taken 11/05/202427 by Yelena Ureña RN Trust Relationship/Rapport: care explained emotional support provided empathic listening provided questions answered questions encouraged reassurance provided thoughts/feelings acknowledged Goal: Readiness for Transition of Care Outcome: Progressing Intervention: Mutually Develop Transition Plan Recent Flowsheet Documentation Taken 11/05/2024 0200 by Yelena Ureña RN Equipment Currently Used at Home: none Problem: Delirium Goal: Optimal Coping Outcome: Progressing Goal: Improved Behavioral Control Outcome: Progressing Intervention: Minimize Safety Risk Recent Flowsheet Documentation Taken 11/05/202427 by Yelena Ureña RN Trust Relationship/Rapport: care explained emotional support provided empathic listening provided questions answered questions encouraged reassurance provided thoughts/feelings acknowledged Goal: Improved Attention and Thought Clarity Outcome: Progressing Goal: Improved Sleep Outcome: Progressing Problem: Dysrhythmia Goal: Normalized Cardiac Rhythm Outcome: Progressing Intervention: Monitor and Manage Cardiac Rhythm Effect Recent Flowsheet Documentation Taken 11/05/202427 by Yelena Ureña RN VTE Prevention/Management: (ambulates often) patient refused intervention Problem: Fall Injury Risk Goal: Absence of Fall and Fall-Related Injury Outcome: Progressing Intervention: Promote Injury-Free Environment Recent Flowsheet Documentation Taken 11/05/2024 0140 by Yelena Ureña RN Safety Promotion/Fall Prevention: activity supervised Taken 11/05/2024 0119 by Yelena Ureña RN Safety Promotion/Fall Prevention: safety round/check completed Taken 11/05/2024 0028 by Yelena Ureña RN Safety Promotion/Fall Prevention: safety round/check completed Problem: Infection Goal: Absence of Infection Signs and Symptoms Outcome: Progressing Intervention: Prevent or Manage Infection Recent Flowsheet Documentation Taken 11/05/2024 002 by Yelena Ureña RN Isolation Precautions: enteric precautions maintained Problem: Gas Exchange Impaired Goal: Optimal Gas Exchange Outcome: Progressing * Plan of Care - Lexis Parikh RN - 11/04/2024 10:49 PM CDT IMC status. A&OX4. Forgetful. VSS. Afebrile. HR elevated and was in the 140's and upto 170's. Was started on Diltiazem gtt. Anxious and agitated with increased SOB. Complained of being claustrophobic and wanted to go out of his room to the family lounge. Educated him on the need to stay in hs room due to his new Diltiazem infusion, he was unable to be redirected. BG 196 at Bed time. Up with SBA to bathroom. Scabs and weepy wound to Bilateral lower extremities. Dressing adjusted. Patient converted to NSR at 1950. MD notified. MD states to continue Dilt drip. Continue POC and monitoring. Problem: Adult Inpatient Plan of Care Goal: Plan of Care Review Description: The Plan of Care Review/Shift note should be completed every shift. The Outcome Evaluation is a brief statement about your assessment that the patient is improving, declining, or no change. This information will be displayed automatically on your shift note. Outcome: Progressing Flowsheets (Taken 11/04/20245) Outcome Evaluation: Afib RVR. Converted back to NSR. Plan of Care Reviewed With: patient Overall Patient Progress: improving Goal: Patient-Specific Goal (Individualized) Description: You can add care plan individualizations to a care plan. Examples of Individualizationmight be: Parent requests to be called daily at 9am for status, I have a hard time hearing out of my right ear, or Do not touch me to wake me up as it startles me. Outcome: Progressing Goal: Absence of Hospital-Acquired Illness or Injury Outcome: Progressing Intervention: Identify and Manage Fall Risk Recent Flowsheet Documentation Taken 11/04/2024 1602 by Lexis Parikh RN Safety Promotion/Fall Prevention: activity supervised Goal: Optimal Comfort and Wellbeing Outcome: Progressing Intervention: Provide Person-Centered Care Recent Flowsheet Documentation Taken 11/04/2024 1602 by Lexis Parikh RN Trust Relationship/Rapport: care explained Goal: Readiness for Transition of Care Outcome: Progressing Problem: Delirium Goal: Optimal Coping Outcome: Progressing Intervention: Optimize Psychosocial Adjustment to Delirium Recent Flowsheet Documentation Taken 11/04/2024 1602 by Lexis Parikh RN Family/Support System Care: presence promoted Goal: Improved Behavioral Control Outcome: Progressing Intervention: Minimize Safety Risk Recent Flowsheet Documentation Taken 11/04/2024 1602 by Lexis Parikh RN Enhanced Safety Measures: room near unit station protective helmet on review medications for side effects with activity patient/family teach back on injury risk Pre/Post Op education on fall prevention Trust Relationship/Rapport: care explained Goal: Improved Attention and Thought Clarity Outcome: Progressing Goal: Improved Sleep Outcome: Progressing Problem: Dysrhythmia Goal: Normalized Cardiac Rhythm Outcome: Progressing Problem: Fall Injury Risk Goal: Absence of Fall and Fall-Related Injury Outcome: Progressing Intervention: Identify and Manage Contributors Recent Flowsheet Documentation Taken 11/04/2024 1602 by Lexis Parikh RN Medication Review/Management: medications reviewed Intervention: Promote Injury-Free Environment Recent Flowsheet Documentation Taken 11/04/2024 1602 by Lexis Parikh RN Safety Promotion/Fall Prevention: activity supervised Problem: Infection Goal: Absence of Infection Signs and Symptoms Outcome: Progressing Problem: Gas Exchange Impaired Goal: Optimal Gas Exchange Outcome: Progressing Goal Outcome Evaluation: Plan of Care Reviewed With: patient Overall Patient Progress: improvingOverall Patient Progress: improving Outcome Evaluation: Afib RVR. Converted back to NSR. * Pharmacy-Admission Medication History - Patel Sahil - 11/04/2024 5:25 PM CDT [employer] Belt Admission Medication History Admission medication history is complete. The information provided in this note is only as accurateas the sources available at the time of the update. Information Source(s): Patient and CareEverywhere/SureScripts via in-person Pertinent Information: Patient reports that he started a 7 day course of Clindamycin yesterday morning and has been experiencing bad diarrhea since then He takes 50,000 units of Vitamin D weekly but not on the same day he takes it whenever he remembers He has a prescription for Duloxetine 30 mg daily from 10/23/24 but her reports that he never startedtaking the medication because he did not want it to affect his mood He also reports that he started a Medrol DosePak last week but only took the first day of pills andthen stopped Changes made to [employer] medication list: Added: Vitamin D Deleted: Azelastine, Budesonide, Triamcinolone Changed: Fluticasone daily -> prn, Ondansetron PO -> Ondansetron PO ODT Allergies reviewed with patient and updates made in EHR: yes Medication History Completed By: Sahil Sweeney 11/04/2024 5:25 PM [employer] Med List Medication Sig Last Dose/Taking acetaminophen (TYLENOL) 500 MG tablet Take 500-1,000 mg by mouth every 6 hours as needed for mild pain. Unknown albuterol (PROAIR HFA/PROVENTIL HFA/VENTOLIN HFA) 108 (90 Base) MCG/ACT inhaler Inhale 2 puffs intothe lungs every 6 hours as needed for shortness of breath, wheezing or cough. Unknown atorvastatin (LIPITOR) 40 MG tablet Take 1 tablet (40 mg) by mouth every evening. 11/03/2024 Evening cholecalciferol (VITAMIN D3) 1250 mcg (21679 units) capsule Take 1,250 mcg by mouth every 7 days. Past Week clindamycin (CLEOCIN) 300 MG capsule Take 1 capsule (300 mg) by mouth 4 times daily for 7 days. 11/04/2024 Morning diclofenac (VOLTAREN) 1 % topical gel Apply 2 g topically 4 times daily as needed. Unknown fluticasone (FLONASE) 50 MCG/ACT nasal spray [place] 1 spray into both nostrils daily. (Patient taking differently: [place] 1 spray into both nostrils daily as needed.) Unknown gabapentin (NEURONTIN) 300 MG capsule Take 2 capsules (600 mg) by mouth 2 times daily. 11/04/2024 Morning glipiZIDE (GLUCOTROL XL) 10 MG 24 hr tablet TAKE 2 TABLETS BY MOUTH EVERY DAY Past Month ipratropium - albuterol 0.5 mg/2.5 mg, 3mg,/3 mL (DUONEB) 0.5-2.5 (3) MG/3ML neb solution INHALE 3 MLS VIA NEBULIZER 4 TIMES A DAY NEEDED Unknown metFORMIN (GLUCOPHAGE XR) 500 MG 24 hr tablet Take 4 tablets (2,000 mg) by mouth daily (with dinner). 11/03/2024 Evening methylPREDNISolone (MEDROL DOSEPAK) 4 MG tablet therapy pack Follow Package Directions Past Month ondansetron (ZOFRAN ODT) 4 MG ODT tab Take 4 mg by mouth every 8 hours as needed for nausea. Unknown pioglitazone (ACTOS) 15 MG tablet Take 1 tablet (15 mg) by mouth daily. 11/03/2024 Cosigned by Elsie Hill RPH at 11/04/2024 6:15 PM CDT Associated attestation - Elsie Hill RPH - 11/04/2024 6:15 PM CDT Although I was not present for the interview, nor did I personally see the patient, to my knowledgethe internist medical doctor md has compiled the [employer] medication list to the best of their ability given the information available at the time. Discontinued: Medrol DosePak Changed: Flonase to DAILY PRN Elsie Hill RPH on 11/04/2024 at 6:15 PM Current Facility-Administered Medications for the 11/04/24 encounter (Hospital Encounter) Medication sodium hyaluronate (DUROLANE) injection 60 mg [employer] Med List Medication Sig Last Dose/Taking acetaminophen (TYLENOL) 500 MG tablet Take 500-1,000 mg by mouth every 6 hours as needed for mild pain. Unknown albuterol (PROAIR HFA/PROVENTIL HFA/VENTOLIN HFA) 108 (90 Base) MCG/ACT inhaler Inhale 2 puffs intothe lungs every 6 hours as needed for shortness of breath, wheezing or cough. Unknown atorvastatin (LIPITOR) 40 MG tablet Take 1 tablet (40 mg) by mouth every evening. 11/03/2024 Evening cholecalciferol (VITAMIN D3) 1250 mcg (02896 units) capsule Take 1,250 mcg by mouth every 7 days. Past Week clindamycin (CLEOCIN) 300 MG capsule Take 1 capsule (300 mg) by mouth 4 times daily for 7 days. 11/04/2024 Morning diclofenac (VOLTAREN) 1 % topical gel Apply 2 g topically 4 times daily as needed. Unknown fluticasone (FLONASE) 50 MCG/ACT nasal spray [place] 1 spray into both nostrils daily as needed for rhinitis or allergies. Unknown gabapentin (NEURONTIN) 300 MG capsule Take 2 capsules (600 mg) by mouth 2 times daily. 11/04/2024 Morning glipiZIDE (GLUCOTROL XL) 10 MG 24 hr tablet TAKE 2 TABLETS BY MOUTH EVERY DAY Past Month ipratropium - albuterol 0.5 mg/2.5 mg, 3mg,/3 mL (DUONEB) 0.5-2.5 (3) MG/3ML neb solution INHALE 3 MLS VIA NEBULIZER 4 TIMES A DAY NEEDED Unknown metFORMIN (GLUCOPHAGE XR) 500 MG 24 hr tablet Take 4 tablets (2,000 mg) by mouth daily (with dinner). 11/03/2024 Evening ondansetron (ZOFRAN ODT) 4 MG ODT tab Take 4 mg by mouth every 8 hours as needed for nausea. Unknown pioglitazone (ACTOS) 15 MG tablet Take 1 tablet (15 mg) by mouth daily. 11/03/2024 documented in this encounter Plan of Treatment Upcoming Encounters Date Type Department Care Team (Late st Contact Info) Description 12/11/2024 2:10 PM CDT Therapy Visit [address] [place] [phone] Shanta Cooper, PT 12/14/2024 11:20 AM CDT Office Visit [facility] [address] [place] [address] Lizet Mann PA-C [address] [place] [phone] 12/17/2024 2:10 PM CDT Office Visit [facility] [address] [place] [address] 4th [place] [phone] Richard Kam MD [address] [place] [address] 12/19/2024 8:20 AM CDT Therapy Visit [address] [phone] Shanta Cooper, PT 12/24/2024 5:00 PM CDT Therapy Visit [address] [phone] Pattie Casillas, PT 12/25/2024 10:20 AM CDT Therapy Visit [address] [phone] Shanta Cooper, PT 01/03/2025 1:00 PM CDT Office Visit [address] [phone] Estella Hassan, [facility] [address] [place] [address] 01/03/2025 1:30 PM CDT Office Visit [address] [phone] [place] [address] [place] [address] 01/08/2025 1:15 PM CDT Office Visit [facility] [address] [place] [address] Hakeem Chacko MBBS [address] [place] [address] Scheduled Orders Name Type Priority Associated Diagnoses Orde r Schedule EKG 12-lead, tracing only (A-fib/flutter) EKG Routine Enter condi tion for order release in comments for 1 Occurrences starting 11/04/2024 Scheduled Procedures Name Priority Associated Diagnoses Date/Ti me INJECTION, EPIDURAL, TRANSFO RAMINAL APPROACH Cervical radiculitis RELEASE, CARPAL TUNNEL, ENDOSCOPIC Right carpal tunnel syndrome Scheduled Referrals Name Type Priority Associated Diagnoses Orde r Schedule Primary Care - Care Coordination Referral Referral Routine: Next available opening Atrial fibrillation with RVR (H) Expected: 11/05/2024 (Approximate), Expires: 11/05/2025 documented as of this encounter Goals Goal [...] job and will access resources that the [employer] [facility] offers. . Sarted new job 4. [...] by household income. 2. I will contact [employer] to ask about medicare plans and if there are saving programs I qualify for by by calling [phone]. 3. I will see if I am eligible for unemployment after losing my job. I will call [phone] to ask for assistance with unemployment application. 4. I will apply for jobs. I will work with [employer] in finding a job (Empowerment.) 5. I will access [employer] and ask about financial resources (such as getting gas card.) Improve management of mental health symptoms and establish with mental health/psychosocia l supports Care Plan Mental Health Symptoms Need Improvement 70%( 10:47 AM CDT) No Mitra Kendall, SILVER Note: Updated on 08/30/24 Barriers: I struggle with having anxiety.My children won;t talk with me due to my mental health concerns Strengths: I am accessing support that is available to me. Patient expressed understanding of goal: Yes Action steps to achieve this goal: 1. I will continue working with therapist at [facility]. 2. I will establish with Psychiatry. Planning to schedule with Ronnie. 3. I will meet with community [employer]worker apprentice [employer] Manjula Gresham. 4. I will look in to attending an IOP program. I will discuss with my [facility] therapist and number provided for [facility] Behavioral Access - [phone] to schedule assessment fr IOP program. 5. I will go to [facility] if I have concerning mental health symptoms. 6. I will access [facility] Crisis if needed by calling [phone]. 7. I will consider calling [facility] Adult Mental health intake at [phone]. documented as of this encounter Procedures Procedure Name Priority Date/Time Associated Diagnosis Comments GLUCOSE BY METER Routine 11/05/2024 6:06 PM CDT GLUCOSE BY METER Routine 11/05/2024 12:2 8 PM CDT ECHO COMPLETE Routine 11/05/2024 8:58 AM CDT CBC WITH PLATELETS AND DIFFERENTIAL Routine 11/05/2024 8:42 AM CDT BASIC METABOLIC PANEL (LIMITED OCCURRENCES) Routine 11/05/2024 8:42 AM CDT CBC WITH PLATELETS & DIFFERENTIAL Routine 11/05/2024 8:42 AM CDT GLUCOSE BY METER Routine 11/05/2024 7:54 AM CDT GLUCOSE BY METER Routine 11/05/2024 2:31 AM CDT EKG 12-LEAD, TRACING ONLY STAT 11/05/2024 1:01 AM CDT GLUCOSE BY METER Routine 11/04/2024 9:53 PM CDT FOCUSED ENTERIC PATHOGEN PANEL BY PCR STAT 11/04/2024 9:18 PM CDT C. DIFFICILE TOXIN B PCR WITH REFLEX TO C. DIFFICILE EIA STAT 11/04/2024 9:17 PM CDT GLUCOSE BY METER Routine 11/04/2024 4:49 PM CDT CBC WITH PLATELETS AND DIFFERENTIAL STAT 11/04/2024 12:04 PM CDT CBC WITH PLATELETS AND DIFFERENTIAL (LIMITED OCCURRENCES) STAT 11/04/2024 12:04 PM CDT EXTRA TUBE STAT 11/04/2024 11:00 AM CDT EXTRA RED TOP TUBE STAT 11/04/2024 11 :00 AM CDT EXTRA BLUE TOP TUBE STAT 11/04/2024 1 1:00 AM CDT COMPREHENSIVE METABOLIC PANEL (LIMITED OCCURRENCES) STAT 11/04/2024 11:00 AM CDT MAGNESIUM (LIMITED OCCURRENCES) Add-On 11/04/2024 11:00 AM CDT TROPONIN T, HIGH SENSITIVITY STAT 11/04/2024 11:00 AM CDT TSH WITH FREE T4 REFLEX Add-On 11/04/2024 11:00 AM CDT NT-PROBNP STAT 11/04/2024 11:00 AM CDT EKG 12-LEAD, TRACING ONLY STAT 11/04/2024 9:51 AM CDT documented in this encounter Results * (ABNORMAL) Glucose by meter (11/05/2024 6:06 PM CDT) GLUCOSE BY METER POCT 156(H) 70 - 99 mg/dL 11/05/2024 6:13 PM CDT LABORATORY POC Blood, Capillary BLOOD SPECIMEN / Unknown 11/05/2024 6:06 PM CDT 11/05/2024 6:13 PM CDT us Devon Alexander MD LAB - BEAKER POCT Final Result Performing Organization Address City/[facility]/ZIP Co de Phone Number LABORATORY [facility] [address] [employer] Lab (1st floor, no room number) [address] * (ABNORMAL) Glucose by meter (11/05/2024 12:28 PM CDT) GLUCOSE BY METER POCT 172(H) 70 - 99 mg/dL 11/05/2024 12:35 PM CDT LABORATORY POC Blood, Capillary BLOOD SPECIMEN / Unknown 11/05/2024 12:28 PM CDT 11/05/2024 12:35 PM CDT Devon Alexander MD LAB - BEAKER POCT Final Result LABORATORY [facility] [address] Lab (1st floor, no room number) [address] * ECHO COMPLETE (11/05/2024 8:58 AM CDT) LVEF 55-60% CARDIOLOGY RESULTS Anatomical Region Laterality Modality Echocardiography 11/05/2024 8:17 AM CDT Narrative 11/05/2024 11:54 AM T [id number]^KRISTAN^DANA^MONICA [facility] Echocardiography Laboratory [address] [place] [address] Name: DANAE OLVERA : 1960 Study Date: 11/05/2024 08:17 AM Age: 64 yrs Gender: Male Patient Location: [facility] Reason For Study: Atrial Fibrillation Ordering Physician: DANA RUSHING Referring Physician: Va Glez Performed By: Nataliia Fishman RDCS BSA: 2.3 m2 Height: 64 in Weight: 281 lb HR: 79 BP: 156/85 mmHg Procedure Echocardiogram with two-dimensional, color and spectral Doppler. Interpretation Summary Left ventricular systolic function is normal.The visual ejection fraction is 55-60%.The left ventricle is mildly dilated. The right ventricular systolic function is normal.The right ventricle is mildly dilated. 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 IVC diameter <2.1 cm collapsing >50% with sniff suggests a normal RA pressure of 3 mmHg. Echocardiogram dated 03/26/2024 aortic root 4.4 cm, ascending aorta 4.2 cm Left Ventricle The left ventricle is mildly dilated. There is normal left ventricular wall thickness. Left ventricular systolic function is normal. The visual ejection fraction is 55-60%. Diastolic Doppler findings (E/E' ratio and/or other parameters) suggest left ventricular filling pressures are increased. No regional wall motion abnormalities noted. Right Ventricle The right ventricle is mildly dilated. The right ventricular systolic function is normal. Atria Normal left atrial size. Right atrial size is normal. There is no color Doppler evidence of an atrial shunt. Mitral Valve There is trace mitral regurgitation. There is no mitral valve stenosis. Tricuspid Valve There is trace tricuspid regurgitation. Right ventricular systolic pressure could not be approximated due to inadequate tricuspid regurgitation. Aortic Valve The aortic valve is trileaflet. No aortic regurgitation is present. No aortic stenosis is present. Pulmonic Valve There is no pulmonic valvular stenosis. Vessels Aortic root dilatation is present. 4 cm. Ascending aorta aneurysm is present. 4.6 cm. IVC diameter <2.1 cm collapsing >50% with sniff suggests a normal RA pressure of 3 mmHg. Pericardium There is no pericardial effusion. Rhythm Sinus rhythm was noted. MMode/2D Measurements & Calculations IVSd: 0.96 cm LVIDd: 5.9 cm LVIDs: 3.7 cm LVPWd: 0.96 cm IVC diam: 1.9 cm FS: 36.9 % LV mass(C)d: 225.1 grams LV mass(C)dI: 99.6 grams/m2 Ao root diam: 4.0 cm asc Aorta Diam: 4.6 cm Ao root diam index Ht(cm/m): 2.5 Ao root diam index BSA (cm/m2): 1.8 Asc Ao diam index BSA (cm/m2): 2.0 Asc Ao diam index Ht(cm/m): 2.8 LA Volume (BP): 54.5 ml LA Volume Index (BP): 24.1 ml/m2 RV Base: 4.9 cm RWT: 0.33 TAPSE: 2.5 cm Doppler Measurements & Calculations MV E max vic: 93.8 cm/sec MV A max vic: 111.0 cm/sec MV E/A: 0.85 MV max P.6 mmHg MV mean P.1 mmHg MV V2 VTI: 29.4 cm MV dec time: 0.31 sec E/E' av.0 Lateral E/e': 13.3 Medial E/e': 8.7 RV S Vic: 14.9 cm/sec Report approved by: Jean Carlos Huizar MD on 11/05/2024 11:54 AM Procedure Note Jean Carlos Huizar MD - 11/05/2024 [id number]^KRISTAN^DANA^MONICA [facility] Echocardiography Laboratory [address] [place] [address] Name: DANAE OLVERA : 1960 Study Date: 11/05/2024 08:17 AM Age: 64 yrs Gender: Male Patient Location: [facility] Reason For Study: Atrial Fibrillation Ordering Physician: DANA RUSHING Referring Physician: Va Glez Performed By: Nataliia Fishman RDCS BSA: 2.3 m2 Height: 64 in Weight: 281 lb HR: 79 BP: 156/85 mmHg Procedure Echocardiogram with two-dimensional, color and spectral Doppler. Interpretation Summary Left ventricular systolic function is normal.The visual ejection fractionis 55-60%.The left ventricle is mildly dilated. The right ventricular systolic function is normal.The right ventricle is mildly dilated. 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 Aortic root dilatation is present- 4 cm. IVC diameter <2.1 cm collapsing >50% with sniff suggests a normal RApressure of 3 mmHg. Echocardiogram dated 03/26/2024 aortic root 4.4 cm, ascending aorta 4.2cm Left Ventricle The left ventricle is mildly dilated. There is normal left ventricularwall thickness. Left ventricular systolic function is normal. The visualejection fraction is 55-60%. Diastolic Doppler findings (E/E' ratio and/or other parameters) suggest left ventricular filling pressures are increased. No regional wall motion abnormalities noted. Right Ventricle The right ventricle is mildly dilated. The right ventricular systolicfunction is normal. Atria Normal left atrial size. Right atrial size is normal. There is no color Doppler evidence of an atrial shunt. Mitral Valve There is trace mitral regurgitation. There is no mitral valve stenosis. Tricuspid Valve There is trace tricuspid regurgitation. Right ventricular systolicpressure could not be approximated due to inadequate tricuspid regurgitation. Aortic Valve The aortic valve is trileaflet. No aortic regurgitation is present. Noaortic stenosis is present. Pulmonic Valve There is no pulmonic valvular stenosis. Vessels Aortic root dilatation is present. 4 cm. Ascending aorta aneurysm ispresent. 4.6 cm. IVC diameter <2.1 cm collapsing >50% with sniff suggests a normalRA pressure of 3 mmHg. Pericardium There is no pericardial effusion. Rhythm Sinus rhythm was noted. MMode/2D Measurements & Calculations IVSd: 0.96 cm LVIDd: 5.9 cm LVIDs: 3.7 cm LVPWd: 0.96 cm IVC diam: 1.9 cm FS: 36.9 % LV mass(C)d: 225.1 grams LV mass(C)dI: 99.6 grams/m2 Ao root diam: 4.0 cm asc Aorta Diam: 4.6 cm Ao root diam index Ht(cm/m): 2.5 Ao root diam index BSA (cm/m2): 1.8 Asc Ao diam index BSA (cm/m2): 2.0 Asc Ao diam index Ht(cm/m): 2.8 LA Volume (BP): 54.5 ml LA Volume Index (BP): 24.1 ml/m2 RV Base: 4.9 cm RWT: 0.33 TAPSE: 2.5 cm Doppler Measurements & Calculations MV E max vic: 93.8 cm/sec MV A max vic: 111.0 cm/sec MV E/A: 0.85 MV max P.6 mmHg MV mean P.1 mmHg MV V2 VTI: 29.4 cm MV dec time: 0.31 sec E/E' av.0 Lateral E/e': 13.3 Medial E/e': 8.7 RV S Vic: 14.9 cm/sec Report approved by: Jean Carlos Huizar MD on 11/05/2024 11:54 AM Dana Rushing PA-C CV ECHO ORDERABLES Edite d Result - Final * (ABNORMAL) CBC with platelets and differential (11/05/2024 8:42 AM CDT) WBC Count 4.02 4.00 - 11.00 10e3/uL 11/05/2024 10:01 AM CDT [facility] LABORATORY RBC Count 4.72 4.40 - 5.90 10e6/uL 11/05/2024 10:01 AM CDT [facility] LABORATORY Hemoglobin 13.4 13.3 - 17.7 g/dL 11/05/2024 10:01 AM CDT [facility] LABORATORY Hematocrit 39.9(L) 40.0 - 53.0 % 11/05/2024 10:01 AM CDT [facility] LABORATORY MCV 84.5 78.0 - 100.0 fL 11/05/2024 10:01 AM CDT [facility] LABORATORY MCH 28.4 26.5 - 33.0 pg 11/05/2024 10:01 AM CDT [facility] LABORATORY MCHC 33.6 31.5 - 36.5 g/dL 11/05/2024 10:01 AM CDT [facility] LABORATORY RDW 13.5 10.0 - 15.0 % 11/05/2024 10:01 AM CDT [facility] LAB[facility]ATORY Platelet Count 177 150 - 450 10e3/uL 11/05/2024 10:01 AM CDT [facility] LABORATORY % Neutrophils 69.7 % 11/05/2024 10:01 AM CDT [facility] LABORATORY % Lymphocytes 17.2 % 11/05/2024 10:01 AM CDT [facility] LAB[facility]ATORY % Monocytes 8.2 % 11/05/2024 10:01 AM CDT [facility] LABORATORY % Eosinophils 4.2 % 11/05/2024 10:01 AM CDT [facility] LABORATORY % Basophils 0.5 % 11/05/2024 10:01 AM CDT [facility] LABORATORY % Immature Granulocytes 0.2 % 11/05/2024 10:01 AM CDT RH LABORATORY NRBCs per 100 WBC 0.0 <1.0 /100 025 10:01 AM CDT [facility] LABORATORY Absolute Neutrophils 2.80 1.60 - 8.30 10e3/uL 11/05/2024 10:01 AM CDT [facility] LABORATORY Absolute Lymphocytes 0.69(L) 0.80 - 5.30 10e3/uL 11/05/2024 10:01 AM CDT LABORATORY Absolute Monocytes 0.33 0.00 - 1.30 10e3/uL 11/05/2024 10:01 AM CDT LABORATORY Absolute Eosinophils 0.17 0.00 - 0.70 10e3/uL 11/05/2024 10:01 AM CDT LABORATORY Absolute Basophils <0.03 0.00 - 0.20 10e3/uL 11/05/2024 10:01 AM CDT LABORATORY Absolute Immature Granulocytes <0.03 <=0.40 10e3/uL 11/05/2024 10:01 AM CDT LABORATORY Absolute NRBCs <0.03 10e3/uL 11/05/2024 10:01 AM CDT LABORATORY Blood STRUCTURE OF LEFT HAND / Unknown Venipuncture / Unknown 11/05/2024 8:42 AM CDT 11/05/2024 9:56 AM CDT Dana Rushing PA-C LAB - BLOOD ORDERABLES F inal Result LABORATORY [facility] Lab [address] Lab (1st floor, no room number) [place] [address], [facility] * (ABNORMAL) Basic Metabolic Panel (Limited Occurrences) (11/05/2024 8:42 AM CDT) Sodium 139 135 - 145 mmol/L 11/05/2024 10:36 AM CDT LABORATORY Potassium 4.3 3.4 - 5.3 mmol/L 11/05/2024 10:36 AM CDT LABORATORY Chloride 102 98 - 107 mmol/L 11/05/2024 10:36 AM CDT LABORATORY Carbon Dioxide (CO2) 26 22 - 29 mmol/L 11/05/2024 10:36 AM CDT LABORATORY Anion Gap 11 7 - 15 mmol/L 11/05/2024 10:36 AM CDT LABORATORY Urea Nitrogen 8.5 8.0 - 23.0 mg/dL 11/05/2024 10:36 AM CDT LABORATORY Creatinine 0.70 0.67 - 1.17 mg/dL 11/05/2024 10:36 AM CDT [facility] LABORATORY GFR Estimate >90 >60 mL/min/1.7 3m2 11/05/2024 10:36 AM CDT [facility] LABORATORY Comment:eGFR calculated usin 2020 CKD-EPI equation. Calcium 9.2 8.8 - 10.4 mg/dL 11/05/2024 10:36 AM CDT [facility] LABORATORY Glucose 213(H) 70 - 99 mg/dL 11/05/2024 10:36 AM CDT [facility] LABORATORY Blood STRUCTURE OF LEFT HAND / Unknown Venipuncture / Unknown 11/05/2024 8:42 AM CDT 11/05/2024 9:56 AM CDT Dana Rushing PA-C LAB - BLOOD ORDERABLES F inal Result LABORATORY [facility] Lab [address] Lab (1st floor, no room number) [place] [phone] [place] [address] * (ABNORMAL) Glucose by meter (11/05/2024 7:54 AM CDT) GLUCOSE BY METER POCT 192(H) 70 - 99 mg/dL 11/05/2024 8:01 AM CDT LABORATORY POC Blood, Capillary BLOOD SPECIMEN / Unknown 11/05/2024 7:54 AM CDT 11/05/2024 8:01 AM CDT Devon Alexander MD LAB - BEAKER POCT Final Result LABORATORY POC [facility] [address] Lab (1st floor, no room number) [place] [address] * (ABNORMAL) Glucose by meter (11/05/2024 2:31 AM CDT) GLUCOSE BY METER POCT 157(H) 70 - 99 mg/dL 11/05/2024 2:40 AM CDT RH LABORATORY POC Blood, Capillary BLOOD SPECIMEN / Unknown 11/05/2024 2:31 AM CDT 11/05/2024 2:40 AM CDT Devon Alexander MD LAB - BEAKER POCT Final Result RH LABORATORY [facility] Lab [address] Lab (1st floor, no room number) [place] [address], [facility] * EKG 12-lead, tracing only (11/05/2024 1:01 AM CDT) Systolic Blood Pressure mmHg RADIOLOGY RESULTS Diastolic Blood Pressure mmHg RADIOLOGY RESULTS Ventricular Rate 59 BPM RAD IOLOGY RESULTS Atrial Rate 59 BPM RADIOLOG Y RESULTS NH Interval 166 ms RADIOLOG Y RESULTS QRS Duration 108 ms RADIOLO GY RESULTS QT 434 ms RADIOLOGY RESULTS QTc 429 ms RADIOLOGY RESULTS P [place] 78 degrees RADIOLOGY RESULTS R AXIS -23 degrees RADIOLOGY RESULTS T [place] 65 degrees RADIOLOGY RESULTS Interpretation ECG Sinus bradycardia Cannot rule out Inferior infarct , age undetermined Abnormal ECG Confirmed by MD TOMAS MICHAEL ([id number]) on 11/10/2024 8:54:53 AM RADIOLOGY RESULTS 11/05/2024 1:01 AM CDT 11/10/2024 8:54 AM CDT Result [facility] Dana Rushing PA-C ECG ORDERABLES Edited R esult - Final Performing Organization Address City/[facility]/ZIP Co de Phone Number RADIOLOGY RESULTS * (ABNORMAL) Glucose by meter (11/04/2024 9:53 PM CDT) GLUCOSE BY METER POCT 196(H) 70 - 99 mg/dL 11/04/2024 10:00 PM CDT LABORATORY POC Blood, Capillary BLOOD SPECIMEN / Unknown 11/04/2024 9:53 PM CDT 11/04/2024 10:00 PM CDT Devon GRIFFIN - BEAKER POCT Final Result RH LABORATORY [facility] [address] Lab (1st floor, no room number) [place] [address] * Focused Enteric Pathogen Panel by PCR (11/04/2024 9:18 PM CDT) Campylobacter species Negative Negative 11/05/2024 6:27 AM CDT [facility] Salmonella species Negative Negative 2024 6:27 AM CDT [facility] Vibrio species Negative Negative 11/05/2024 6:27 AM CDT [facility] Yersinia enterocolitica Negative Negative 11/05/2024 6:27 AM CDT [facility] Shiga-like toxin-producing E. coli (STEC) Negative Negative 11/05/2024 6:27 AM CDT [facility] Shigella/Enteroinva sive E. coli (EIEC) Negative Negative 11/05/2024 6:27 AM CDT [facility] Cryptosporidium species Negative Negative 11/05/2024 6:27 AM CDT [facility] Giardia lamblia Negative Negative 6:27 AM CDT [facility] Norovirus Gl/Gll Negative Negative 11/06/19 6:27 AM CDT [facility] Cyclospora cayetanensis Negative Negative 11/05/2024 6:27 AM CDT [facility] Stool RECTAL CONTENTS / Unknown Non-blood Collection / Unknown 11/04/2024 9:18 PM CDT 11/04/2024 9:25 PM CDT Narrative [facility] - 11/05/2024 6:27 AM CDT Assay performed using the FDA-cleared FilmArray GI Panel Mid from [employer] A negative result should not rule out infection in patients with a probability for gastrointestinal infection. The assay does not test for all potential infectious agents of diarrheal disease. Positive results do not distinguish between a viable or replicating organism and the presence of a nonviable organism or nucleic acid, nor do they exclude the possibility of coinfection by organisms not in the panel. Results are intended to aid in the diagnosis of illness and are meant to be used in conjunction with other clinical findings. This test has been verified and is performed by the Infectious Diseases Diagnostic Laboratory at [facility]. This laboratory is certified under the Clinical Laboratory Improvement Amendments of 1988 (CLIA-88) as qualified to perform high complexity clinical laboratory testing. Dana Rushing PA-C LAB - MICRO GENERAL ORDE RABLES Final Result Performing Organization Address [facility] Co de Phone Number U [facility] LABORATORY [facility] Inf. Diseases Diag. Lab [address] [facility], Room [place] [phone] * C. difficile Toxin B PCR with reflex to C. difficile EIA (11/04/2024 9:17 PM CDT) C Difficile Toxin B by PCR Negative Negative 11/05/2024 1:55 AM CDT [facility] Comment:A negative result do es not exclude actual disease due to C. difficile and may be due to improper collection, handling and storage of the specimen or the number of organisms in the specimen is below the detection limit of the assay. Stool RECTAL CONTENTS / Unknown Non-blood Collection / Unknown 11/04/2024 9:17 PM CDT 11/04/2024 9:25 PM CDT Narrative [facility] - 11/05/2024 1:55 AM CDT The [employer] Xpert C. difficile Assay, performed on the [employer], is a qualitative in vitro diagnostic test for rapid detection of toxin B gene sequences from unformed (liquid or soft) stool specimens collected from patients suspected of having Clostridioides difficile infection (CDI). The test utilizes automated real-time polymerase chain reaction (PCR) to detect toxin gene sequences associated with toxin producing C. difficile. The Xpert C. difficile Assay is intended as an aid in the diagnosis of CDI. Dana Rushing PA-C LAB - MICRO ORDE RABZAID Final Result Performing Organization Address [facility]/ZIP Co de Phone Number U [facility] LABORATORY [facility] Inf. Diseases Diag. Lab [address] [facility], [address] [phone] * (ABNORMAL) Glucose by meter (11/04/2024 4:49 PM CDT) GLUCOSE BY METER POCT 172(H) 70 - 99 mg/dL 11/04/2024 4:55 PM CDT [facility] LABORATORY POC Blood, Capillary BLOOD SPECIMEN / Unknown 11/04/2024 4:49 PM CDT 11/04/2024 4:55 PM CDT Devon Alexander MD LAB - BEAKER POCT Final Result RH LABORATORY POC [facility] Lab [address] Lab (1st floor, no room number) [place] [address], [facility] * (ABNORMAL) CBC with platelets and differential (11/04/2024 12:04 PM CDT) WBC Count 5.68 4.00 - 11.00 10e3/uL 11/04/2024 12:09 PM CDT [facility] LAB[facility] RBC Count 4.79 4.40 - 5.90 10e6/uL 11/04/2024 12:09 PM CDT [facility] Hemoglobin 13.7 13.3 - 17.7 g/dL 11/04/2024 12:09 PM CDT [facility] Hematocrit 40.0 40.0 - 53.0 % 11/04/2024 12:09 PM CDT [facility] MCV 83.5 78.0 - 100.0 fL 11/04/2024 12:09 PM CDT [facility] MCH 28.6 26.5 - 33.0 pg 11/04/2024 12:09 PM CDT [facility] MCHC 34.3 31.5 - 36.5 g/dL 11/04/2024 12:09 PM CDT [facility] RDW 13.3 10.0 - 15.0 % 11/04/2024 12:09 PM CDT [facility] Platelet Count 196 150 - 450 10e3/uL 11/04/2024 12:09 PM CDT [facility] % Neutrophils 78.1 % 11/04/2024 12:09 PM CDT [facility] % Lymphocytes 13.0 % 11/04/2024 12:09 PM CDT [facility] % Monocytes 6.7 % 11/04/2024 12:09 PM CDT [facility] % Eosinophils 1.4 % 11/04/2024 12:09 PM CDT [facility] % Basophils 0.4 % 11/04/2024 12:09 PM CDT [facility] % Immature Granulocytes 0.4 % 11/04/2024 12:09 PM CDT [facility] LAB[facility]ORY NRBCs per 100 WBC 0.0 <1.0 /100 025 12:09 PM CDT [facility] LAB[facility] Absolute Neutrophils 4.44 1.60 - 8.30 10e3/uL 11/04/2024 12:09 PM CDT [facility] Absolute Lymphocytes 0.74(L) 0.80 - 5.30 10e3/uL 11/04/2024 12:09 PM CDT [facility] Absolute Monocytes 0.38 0.00 - 1.30 10e3/uL 11/04/2024 12:09 PM CDT [facility] LAB[facility] Absolute Eosinophils 0.08 0.00 - 0.70 10e3/uL 11/04/2024 12:09 PM CDT [facility] Absolute Basophils <0.03 0.00 - 0.20 10e3/uL 11/04/2024 12:09 PM CDT [facility] Absolute Immature Granulocytes <0.03 <=0.40 10e3/uL 11/04/2024 12:09 PM CDT [facility] Absolute NRBCs <0.03 10e3/uL 11/04/2024 12:09 PM CDT [facility] Blood BLOOD SPECIMEN / Unknown Venipuncture / Unknown 11/04/2024 12:04 PM CDT 11/04/2024 12:06 PM CDT us Preston Oliveira MD LAB - BLOOD ORDERABLES Fi nal Result [facility] LABORATORY [facility] Lab [address] Lab (1st floor, no room number) [place] [address], [facility] * TSH with free T4 reflex (11/04/2024 11:00 AM CDT) TSH 1.03 0.30 - 4.20 uIU/mL 11/04/2024 4:54 PM CDT [facility] LAB[facility] Blood BLOOD SPECIMEN / Unknown Venipuncture / Unknown 11/04/2024 11:00 AM CDT 11/04/2024 11:16 AM CDT Dana Rushing PA-C LAB - BLOOD ORDERABLES F inal Result [facility] [address] Lab (1st floor, no room number) [place] [address] * Magnesium (Limited Occurrences) (11/04/2024 11:00 AM CDT) Magnesium 1.8 1.7 - 2.3 mg/dL 11/04/2024 4:47 PM CDT [facility] LAB[facility]ATORY Blood BLOOD SPECIMEN / Unknown Venipuncture / Unknown 11/04/2024 11:00 AM CDT 11/04/2024 11:16 AM CDT us Dana Rushing PA-C LAB - BLOOD ORDERABLES F inal Result Performing Organization Address City/[facility]/ZIP Co de Phone Number [facility] [address] Lab (1st floor, no room number) [place] [address], [facility] * Extra Red Top Tube (11/04/2024 11:00 AM CDT) Hold Specimen [facility] 11/04/2024 12:31 PM CDT [facility] LAB[facility]ATORY Blood BLOOD SPECIMEN / Unknown Venipuncture / Unknown 11/04/2024 11:00 AM CDT 11/04/2024 11:16 AM CDT us Preston Oliveira MD LAB - BLOOD ORDERABLES Fi nal Result [facility] [address] Lab (1st floor, no room number) [place] [address], [facility] * Extra Blue Top Tube (11/04/2024 11:00 AM CDT) Hold Specimen [facility] 11/04/2024 12:31 PM CDT LABORATORY Blood BLOOD SPECIMEN / Unknown Venipuncture / Unknown 11/04/2024 11:00 AM CDT 11/04/2024 11:16 AM CDT Preston Oliveira MD LAB - BLOOD ORDERABLES Fi nal Result [facility] [address] Lab (1st floor, no room number) [place] [phone] [place] [address] * Troponin T, High Sensitivity (11/04/2024 11:00 AM CDT) Troponin T, High Sensitivity 17 <=22 ng/L 11/04/2024 11:48 AM CDT LABORATORY Comment: Either a High Sensitivity [...] BLOOD SPECIMEN / Unknown Venipuncture / Unknown 11/04/2024 11:00 AM CDT 11/04/2024 11:16 AM CDT Preston Oliveira MD LAB - BLOOD ORDERABLES Fi nal Result [facility] [address] Lab (1st floor, no room number) [place] [phone] [place] [address] * NT-proBNP (11/04/2024 11:00 AM CDT) NT-proBNP 46 0 - 229 pg/mL 11/04/2024 11:48 AM CDT LABORATORY Comment: Starting on 07/18/2024, [facility] laboratory began flagging abnormal values for plasma [...] be interpreted with the updated reference intervals. [facility]'s Pediatric (boys and girls) Reference Ranges in pg/mL * 0 up to 3 days: 0 - 12917 3 days up to 1 month: 0 [...] For adult chronic CHF patients according to [place] [employer] (NYHA) Functional Class, the mean NT-proBNP concentration is as following (5th and 95th percentile values respectively displayed in parentheses): Class I: 1016 pg/mL (33-3410) Class II: 1666 pg/mL (103-6567) Class III: 3029 pg/mL (126-17925) Class IV: 3465 pg/mL (148-47139) Clinical thresholds for acute (emergency department) settings: [...] BLOOD SPECIMEN / Unknown Venipuncture / Unknown 11/04/2024 11:00 AM CDT 11/04/2024 11:16 AM CDT us Preston Oliveira MD LAB - BLOOD ORDERABLES Fi nal Result LABORATORY [facility] Lab [address] Lab (1st floor, no room number) [place] [address] * (ABNORMAL) Comprehensive Metabolic Panel (Limited Occurrences) (11/04/2024 11:00 AM CDT) Sodium 135 135 - 145 mmol/L 11/04/2024 11:44 AM CDT LABORATORY Potassium 4.3 3.4 - 5.3 mmol/L 11/04/2024 11:44 AM CDT LABORATORY Carbon Dioxide (CO2) 26 22 - 29 mmol/L 11/04/2024 11:44 AM CDT LABORATORY Anion Gap 8 7 - 15 mmol/L 11/04/2024 11:44 AM CDT LABORATORY Urea Nitrogen 14.4 8.0 - 23.0 mg/dL 11/04/2024 11:44 AM CDT LABORATORY Creatinine 0.65(L) 0.67 - 1.17 mg/dL 11/04/2024 11:44 AM CDT LABORATORY GFR Estimate >90 >60 mL/min/1.7 3m2 11/04/2024 11:44 AM CDT LABORATORY Comment:eGFR calculated usin 2020 CKD-EPI equation. Calcium 9.3 8.8 - 10.4 mg/dL 11/04/2024 11:44 AM CDT [facility] Chloride 101 98 - 107 mmol/L 11/04/2024 11:44 AM CDT [facility] Glucose 228(H) 70 - 99 mg/dL 11/04/2024 11:44 AM CDT [facility] Alkaline Phosphatase 91 40 - 150 U/L 11/04/2024 11:44 AM CDT [facility] AST 15 0 - 45 U/L 11/04/2024 11:44 AM CDT [facility] ALT 23 0 - 70 U/L 11/04/2024 11:44 AM CDT [facility] Protein Total 6.6 6.4 - 8.3 g/dL 11/04/2024 11:44 AM CDT LABORATORY Albumin 4.0 3.5 - 5.2 g/dL 11/04/2024 11:44 AM CDT LABORATORY Bilirubin Total 0.5 <=1.2 mg/dL 11/04/2024 11:44 AM CDT [facility] Blood BLOOD SPECIMEN / Unknown Venipuncture / Unknown 11/04/2024 11:00 AM CDT 11/04/2024 11:16 AM CDT us Preston Oliveira MD LAB - BLOOD ORDERABLES Fi nal Result LABORATORY [facility] [address] Lab (1st floor, no room number) [place] [id number] * EKG 12 lead (11/04/2024 9:51 AM CDT) Systolic Blood Pressure mmHg RADIOLOGY RESULTS Diastolic Blood Pressure mmHg RADIOLOGY RESULTS Ventricular Rate 129 BPM RAD IOLOGY RESULTS Atrial Rate BPM RADIOLOG Y RESULTS NH Interval ms RADIOLOG Y RESULTS QRS Duration 86 ms RADIOLO GY RESULTS QT 298 ms RADIOLOGY RESULTS QTc 436 ms RADIOLOGY RESULTS P [place] degrees RADIOLOGY RESULTS R AXIS -55 degrees RADIOLOGY RESULTS T [place] 58 degrees RADIOLOGY RESULTS Interpretation ECG Unconfirmed report - interpretation of this ECG is computer generated - see medical record for final interpretation Atrial fibrillation with rapid ventricular response with premature ventricular or aberrantly conducted complexes Left axis deviation Inferior infarct (cited on or before 18-Dec-2023) Abnormal ECG When compared with ECG of 21-Oct-2024 14:20, Atrial fibrillation has replaced Sinus rhythm Vent. 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] Unspecified disorder of skin and subcutaneous tissue Exacerbation of asthma, unspecified asthma severity, unspecified whether persistent Diabetic polyneuropathy associated with type 2 diabetes mellitus (H) Bilateral cellulitis of lower leg Cellulitis and abscess of leg, except foot Chronic pain of right knee documented in this encounter Admitting Diagnoses Diagnosis Atrial fibrillation with RVR (H) Atrial fibrillation documented in this encounter Administered Medications Inactive Administered Medications - up to 3 most recent administrations Medication Order MAR Action Action Date Dose Rate Site acetaminophen (TYLENOL) Suppository 650 mg 650 mg, Rectal, EVERY 4 HOURS PRN, mild pain, other, and adjunct with moderate or severe pain or per patient request, Starting on 11/04/24 at 1614, Alternate with ibuprofen if ordered. Maximum acetaminophen dose from all sources = 75 mg/kg/day not to exceed 4 grams/day. acetaminophen (TYLENOL) tablet 650 mg 650 mg, Oral, EVERY 4 HOURS PRN, mild pain, other, and adjunct with moderate or severe pain or per patient request, Starting on 11/04/24 at 1614, Alternate with ibuprofen if ordered. Maximum acetaminophen dose from all sources = 75 mg/kg/day not to exceed 4 grams/day. $Given 11/04/2024 10:41 PM CDT 650 mg dextrose 50 % injection 25-50 mL 25-50 mL, Intravenous, EVERY 15 MIN PRN, low blood sugar, Administer over 1-5 Minutes, Starting on 11/04/24 at 1641, Use if have IV access, BG less than 70 mg/dL and meet dose criteria below: Dose if conscious and alert (or disorientated) and NPO = 25 mL Dose if unconscious / not alert = 50 mL Give first dose for initial blood glucose less than 70 mg/dL. If blood glucose at 15 minute recheck is less than or equal to 80 mg/dL continue to administer carbohydrate treatment every 15 minutes, as needed, based on blood glucose and assessment parameters until blood glucose level is above 80 mg/dL x 2 consecutive 15 minute checks. diltiazem (CARDIZEM) 125 mg in dextrose 5% 125 mL infusion 5-15 mg/hr (5-15 mL/hr), Intravenous, CONTINUOUS, Starting on Tue11/04/24 at 1235, Dosin-15 mg/hr; Starting dose for TITRATABLE: 5 mg/hr Adjustment Increase/Decrease: 5 mg/hr every 30 minutes Goal: Heart Rate between 60-100 beats per minute, maintain a systolic blood pressure greater than or equal to 100 mmHg Max dose/rate: 15 mg/hr Rate/Dose Verify 11/04/2024 3:10 PM CDT 10 mg/hr 10 mL/hr Rate/Dose Change 11/04/2024 2:03 PM CDT 10 mg/hr 10 mL/h r $New Bag 11/04/2024 1:16 PM CDT 5 mg/hr 5 mL/hr diltiazem (CARDIZEM) 125 mg in dextrose 5% 125 mL infusion 5-15 mg/hr (5-15 mL/hr), Intravenous, CONTINUOUS, Starting on Tue11/04/24 at 1700, Starting Dose: 10 mg/hr Adjustment Increase/Decrease: 5 mg/hr every 30 minutes Goal: Heart Rate between 60-100 beats per minute, while maintaining a systolic blood pressure greater than or equal to 100 mmHg Max dose/rate: 15 mg/hr Spec Instructions: Notify provider if reach the maximum diltiazem dose (15 mg/hr) and still unable to achieve goal heart rate Hold diltiazem infusion if systolic blood pressure less than 100 mmHg or heart rate less than 60 beats per minute. When systolic climbs back over 100 mmHg, can restart infusion at a lower dose (MINUS 5 mg/hour). Notify the provider for further orders: 1) If the patient converts to normal sinus rhythm during the course of the diltiazem infusion treatment 2) Has adverse response to diltiazem. 3) If oral diltiazem is ordered, contact provider ISABEL to determine when the infusion order should be discontinued 4) After 24 hours of infusion, Call provider for further orders (if provider not already contacted) FOR Telemetry patients ONLY Rate/Dose Verify 11/05/2024 12:56 AM CDT 15 mg/hr 15 mL/hr $New Bag 11/04/2024 10:19 PM CDT 15 mg/hr 15 mL/hr $New Bag 11/04/2024 7:00 PM CDT 15 mg/hr 15 mL/hr diltiazem (CARDIZEM) injection 20 mg 20 mg, Intravenous, ONCE, Administer over 2 Minutes, On [place] 11/04/24 at 1120, For 1 dose $Given 11/04/2024 12:07 PM CDT 20 mg enoxaparin ANTICOAGULANT (LOVENOX) injection 135 mg 135 mg (rounded from 127.6 mg = 1 mg/kg 127.6 kg), Subcutaneous, EVERY 12 HOURS, First dose on [place] 11/04/24 at 1700 $Given 11/05/2024 5:50 PM CDT 135 mg $Given 11/05/2024 6:03 AM CDT 135 mg $Given 11/04/2024 6:05 PM CDT 135 mg glucagon injection 1 mg 1 mg, Subcutaneous, EVERY 15 MIN PRN, low blood sugar, May repeat x 1 only, Starting on [place] 11/04/24 at 1641, May give SQ or IM. ONLY use glucagon IF patient has NO IV access AND is UNABLE to swallow AND blood glucose is LESS than or EQUAL to 50 mg/dL. glucose gel 15-30 g 15-30 g, Oral, EVERY 15 MIN PRN, low blood sugar, Starting on [place] 11/04/24 at 1641, Give first dose for initial blood glucose less than 70 mg/dL per the dosing instructions below. If blood glucose at 15 minute rechecks is still less than or equal to 80 mg/dL, continue to administer doses per blood glucose parameters every 15 minutes, as needed, until blood glucose level is at or above 80 mg/dL x 2 consecutive 15 minute checks. Dosing Instructions: ~If patient is conscious and able to swallow and NO enteral tube For initial BG 51-69mg/dL OR 15 minute recheck BG 51- 80 mg/dL - give 15 g For BG less than or equal to 50 mg/dL - give 30 g ~ If Enteral tube For initial BG 51-69mg/dL OR 15 minute recheck BG 51- 80 mg/dL - give apple juice 120 mL (4 oz or 15 g of CHO) via enteral tube For BG less than or equal to 50 mg/dL - Give apple juice 240 mL (8 oz or 30 g of CHO) via enteral tube ~Oral gel is preferable for conscious and able to swallow patient. ~IF gel unavailable or patient refuses may provide apple juice per Enteral tube dosing instructions. Document juice on I and O flowsheet. insulin aspart (NovoLOG) injection (RAPID ACTING) 1-7 Units, Subcutaneous, 3 TIMES DAILY BEFORE MEALS, First dose on 11/04/24 at 1700, Correction Scale - MEDIUM INSULIN RESISTANCE DOSING Do Not give Correction Insulin if Pre-Meal BG less than 140. For Pre-Meal BG 140 - 189 give 1 unit. For Pre-Meal BG 190 - 239 give 2 units. For Pre-Meal BG 240 - 289 give 3 units. For Pre-Meal BG 290 - 339 give 4 units. For Pre-Meal BG 340- 389 give 5 units. For Pre-Meal BG 390-439 give 6 units For Pre-Meal BG greater than or equal to 440 give 7 units. If patient is NOT eating a meal: Blood glucose should still be checked and correction (sliding scale) insulin to be administered within 30 minutes if order parameters are met. If patient is eating a meal: To be given with prandial insulin if ordered, and based on pre-meal blood glucose. Administering insulin within 5 minutes of the start of the meal is ideal. Administer insulin no more than 30 minutes after the start of the meal, unless directed otherwise by provider. Notify provider if glucose greater than or equal to 350 mg/dL after administration of correction dose. $Given 11/05/2024 6:36 PM CDT 1 Units $Given 11/05/2024 8:37 AM CDT 2 Units $Given 11/04/2024 5:57 PM CDT 1 Units insulin aspart (NovoLOG) injection (RAPID ACTING) 1-5 Units, Subcutaneous, AT BEDTIME, First dose on 11/04/24 at 2200, MEDIUM INSULIN RESISTANCE DOSING Do Not give Bedtime Correction Insulin if BG less than 200. For BG 200 - 249 give 1 units. For BG 250 - 299 give 2 units. For BG 300 - 349 give 3 units. For BG 350 -399 give 4 units. For BG greater than or equal to 400 give 5 units. Notify provider if glucose greater than or equal to 350 mg/dL after administration of correction dose. levalbuterol (XOPENEX) neb solution 0.63 mg 0.63 mg, Nebulization, EVERY 6 HOURS PRN, wheezing, shortness of breath, Starting on 11/04/24 at 1629, Levalbuterol orders will be substituted to albuterol unless intolerance is documented here: Tachycardia $Given 11/05/2024 1:50 PM CDT 0.63 mg $Given 11/04/2024 7:16 PM CDT 0.63 mg LORazepam (ATIVAN) tablet 1 mg 1 mg, Oral, ONCE, On Tue11/05/24 at 0200, For 1 dose $Given 11/05/2024 1:50 AM CDT 1 mg senna-docusate (SENOKOT-S/PERICOLACE) 8.6-50 MG per tablet 1 tablet 1 tablet, Oral, 2 TIMES DAILY PRN, constipation, Starting on 11/04/24 at 1611, If no bowel movement in 24 hours, increase to 2 tablets by mouth. IF more than 1 constipation PRN medication is ordered, administer step-vaca as indicated, moving to the next step ONLY if prior step ineffective. Step 1: senna-docusate (SENOKOT-S; PERICOLACE) OR bisacodyl (DULCOLAX) EC tablet Step 2: polyethylene glycol (MIRALAX/GLYCOLAX) Step 3: bisacodyl (DULCOLAX) suppository Step 4: enema Hold for loose stools. senna-docusate (SENOKOT-S/PERICOLACE) 8.6-50 MG per tablet 2 tablet 2 tablet, Oral, 2 TIMES DAILY PRN, constipation, Starting on Tue11/04/24 at 1611, IF more than 1 constipation PRN medication is ordered, administer step-vaca as indicated, moving to the next step ONLY if prior step ineffective. Step 1: senna-docusate (SENOKOT-S; PERICOLACE) OR bisacodyl (DULCOLAX) EC tablet Step 2: polyethylene glycol (MIRALAX/GLYCOLAX) Step 3: bisacodyl (DULCOLAX) suppository Step 4: enema Hold for loose stools. sodium chloride (PF) 0.9% PF flush 3 mL 3 mL, Intracatheter, EVERY 8 HOURS SCHEDULED, First dose on 11/04/24 at 2200, to lock peripheral IV dormant line $Given 11/05/2024 9:37 AM CDT 3 mLs $Given 11/04/2024 10:23 PM CDT 3 mLs sodium chloride (PF) 0.9% PF flush 3 mL 3 mL, Intracatheter, EVERY 1 MIN PRN, line flush, other, to ensure patency or to lock dormant line, Starting on 11/04/24 at 1611 $Given 11/05/2024 9:37 AM CDT 3 mLs sodium chloride 0.9% BOLUS 500 mL Intravenous, 500 mL, ONCE, at 500 mL/hr, Administer over 1 Hours, On 11/04/24 at 0955, For 1 dose $New Bag 11/04/2024 11:02 AM CDT 500 mLs 500 mL/hr documented in this encounter Active and Recently Administered Medications Times are shown in CDT. Scheduled Medication Order 11/03/2024 11/04/2024 11/05/2024 diltiazem (CARDIZEM) injection 20 mg (COMPLETED) 20 mg, Intravenous, ONCE, Administer over 2 Minutes, On 11/04/24 at 1120, For 1 dose 1207 ($Given - Provider: Trey Maldonado, INOCENCIO) enoxaparin ANTICOAGULANT (LOVENOX) injection 135 mg 135 mg (rounded from 127.6 mg = 1 mg/kg 127.6 kg), Subcutaneous, EVERY 12 HOURS, First dose on 11/04/24 at 1700 1805 ($Given - Provider: Lexis Parikh RN) 0603 ($Given - Provider: Yelena Ureña, INOCENCIO)1750 ($Given - Provider: Akosua Aguirre RN) insulin aspart (NovoLOG) injection (RAPID ACTING) 1-7 Units, Subcutaneous, 3 TIMES DAILY BEFORE MEALS, First dose on 11/04/24 at 1700, Correction Scale - MEDIUM INSULIN RESISTANCE DOSING Do Not give Correction Insulin if Pre-Meal BG less than 140. For Pre-Meal BG 140 - 189 give 1 unit. For Pre-Meal BG 190 - 239 give 2 units. For Pre-Meal BG 240 - 289 give 3 units. For Pre-Meal BG 290 - 339 give 4 units. For Pre-Meal BG 340- 389 give 5 units. For Pre-Meal BG 390-439 give 6 units For Pre-Meal BG greater than or equal to 440 give 7 units. If patient is NOT eating a meal: Blood glucose should still be checked and correction (sliding scale) insulin to be administered within 30 minutes if order parameters are met. If patient is eating a meal: To be given with prandial insulin if ordered, and based on pre-meal blood glucose. Administering insulin within 5 minutes of the start of the meal is ideal. Administer insulin no more than 30 minutes after the start of the meal, unless directed otherwise by provider. Notify provider if glucose greater than or equal to 350 mg/dL after administration of correction dose. 1757 ($Given - Provider: Lexsi Parikh RN - Comment: BG 172) 0837 ($Given - Provider: Mely Cordero RN)1231 (Not Given - Provider: Christy Mckeon RN - Reason: Patient/family refused - Comment: bg 172, informed refusal)1836 ($Given - Provider: Akosua Aguirre RN - Comment: BG 156) insulin aspart (NovoLOG) injection (RAPID ACTING) 1-5 Units, Subcutaneous, AT BEDTIME, First dose on Tue11/04/24 at 2200, MEDIUM INSULIN RESISTANCE DOSING Do Not give Bedtime Correction Insulin if BG less than 200. For BG 200 - 249 give 1 units. For BG 250 - 299 give 2 units. For BG 300 - 349 give 3 units. For BG 350 -399 give 4 units. For BG greater than or equal to 400 give 5 units. Notify provider if glucose greater than or equal to 350 mg/dL after administration of correction dose. 220 (Not Given - Provider: Lexis Parikh RN - Reason: Order parameters not met - Comment: BG 196) LORazepam (ATIVAN) tablet 1 mg (COMPLETED) 1 mg, Oral, ONCE, On Tue11/05/24 at 0200, For 1 dose 0150 ($Given - Provider: Yelena Ureña RN) sodium chloride (PF) 0.9% PF flush 3 mL 3 mL, Intracatheter, EVERY 8 HOURS SCHEDULED, First dose on Tue11/04/24 at 2200, to lock peripheral IV dormant line 2223 ($Given - Provider: Lexis Parikh, RN) 0600 (Not Given - Provider: Yelena Ureña RN - Reason: Other)0937 ($Given - Provider: Christy Mckeon, INOCENCIO)1744 (Canceled Entry - Provider: Akosua Aguirre RN) sodium chloride 0.9% BOLUS 500 mL (COMPLETED) Intravenous, 500 mL, ONCE, at 500 mL/hr, Administer over 1 Hours, On [place] 11/04/24 at 0955, For 1 dose 1102 ($New Bag - Provider: Trey Maldonado, INOCENCIO)1316 (Stopped - Provider: Trey Maldonado RN) Continuous Medication Order 11/03/2024 11/04/2024 11/05/2024 diltiazem (CARDIZEM) 125 mg in dextrose 5% 125 mL infusion (CANCELED) 5-15 mg/hr (5-15 mL/hr), Intravenous, CONTINUOUS, Starting on Tue11/04/24 at 1235, Dosin-15 mg/hr; Starting dose for TITRATABLE: 5 mg/hr Adjustment Increase/Decrease: 5 mg/hr every 30 minutes Goal: Heart Rate between 60-100 beats per minute, maintain a systolic blood pressure greater than or equal to 100 mmHg Max dose/rate: 15 mg/hr 1316 ($New Bag - Provider: Trey Maldonado RN)1403 (Rate/Dose Change - Provider: Trey Maldonado RN)1510 (Rate/Dose Verify - Provider: Kelsi Amos RN) diltiazem (CARDIZEM) 125 mg in dextrose 5% 125 mL infusion 5-15 mg/hr (5-15 mL/hr), Intravenous, CONTINUOUS, Starting on Tue11/04/24 at 1700, Starting Dose: 10 mg/hr Adjustment Increase/Decrease: 5 mg/hr every 30 minutes Goal: Heart Rate between 60-100 beats per minute, while maintaining a systolic blood pressure greater than or equal to 100 mmHg Max dose/rate: 15 mg/hr Spec Instructions: Notify provider if reach the maximum diltiazem dose (15 mg/hr) and still unable to achieve goal heart rate Hold diltiazem infusion if systolic blood pressure less than 100 mmHg or heart rate less than 60 beats per minute. When systolic climbs back over 100 mmHg, can restart infusion at a lower dose (MINUS 5 mg/hour). Notify the provider for further orders: 1) If the patient converts to normal sinus rhythm during the course of the diltiazem infusion treatment 2) Has adverse response to diltiazem. 3) If oral diltiazem is ordered, contact provider ISABEL to determine when the infusion order should be discontinued 4) After 24 hours of infusion, Call provider for further orders (if provider not already contacted) FOR Telemetry patients ONLY 1638 (Rate/Dose Verify - Provider: Lexis Parikh RN)1900 ($New Bag - Provider: Lexis Parikh RN)2219 ($New Bag - Provider: Lexis Parikh RN) 0056 (Rate/Dose Verify - Provider: Yelena Ureña RN)0104 (Stopped - Provider: Yelena Ureña RN - Comment: HR under 60) PRN Medication Order 11/03/2024 11/04/2024 11/05/2024 acetaminophen (TYLENOL) Suppository 650 mg(Linked Group 1) 650 mg, Rectal, EVERY 4 HOURS PRN, mild pain, other, and adjunct with moderate or severe pain or per patient request, Starting on 11/04/24 at 1614, Alternate with ibuprofen if ordered. Maximum acetaminophen dose from all sources = 75 mg/kg/day not to exceed 4 grams/day. 2240 (See Alternative - Provider: Lexis Parikh RN) acetaminophen (TYLENOL) tablet 650 mg(Linked Group 1) 650 mg, Oral, EVERY 4 HOURS PRN, mild pain, other, and adjunct with moderate or severe pain or per patient request, Starting on 11/04/24 at 1614, Alternate with ibuprofen if ordered. Maximum acetaminophen dose from all sources = 75 mg/kg/day not to exceed 4 grams/day. 2240 ($Given - Provider: Lexis Parikh RN) calcium carbonate (TUMS) chewable tablet 1,000 mg 1,000 mg, Oral, 4 TIMES DAILY PRN, heartburn, Starting on 11/04/24 at 1611 dextrose 50 % injection 25-50 mL(Linked Group 2) 25-50 mL, Intravenous, EVERY 15 MIN PRN, low blood sugar, Administer over 1-5 Minutes, Starting on 11/04/24 at 1641, Use if have IV access, BG less than 70 mg/dL and meet dose criteria below: Dose if conscious and alert (or disorientated) and NPO = 25 mL Dose if unconscious / not alert = 50 mL Give first dose for initial blood glucose less than 70 mg/dL. If blood glucose at 15 minute recheck is less than or equal to 80 mg/dL continue to administer carbohydrate treatment every 15 minutes, as needed, based on blood glucose and assessment parameters until blood glucose level is above 80 mg/dL x 2 consecutive 15 minute checks. glucagon injection 1 mg(Linked Group 2) 1 mg, Subcutaneous, EVERY 15 MIN PRN, low blood sugar, May repeat x 1 only, Starting on 11/04/24 at 1641, May give SQ or IM. ONLY use glucagon IF patient has NO IV access AND is UNABLE to swallow AND blood glucose is LESS than or EQUAL to 50 mg/dL. glucose gel 15-30 g(Linked Group 2) 15-30 g, Oral, EVERY 15 MIN PRN, low blood sugar, Starting on 11/04/24 at 1641, Give first dose for initial blood glucose less than 70 mg/dL per the dosing instructions below. If blood glucose at 15 minute rechecks is still less than or equal to 80 mg/dL, continue to administer doses per blood glucose parameters every 15 minutes, as needed, until blood glucose level is at or above 80 mg/dL x 2 consecutive 15 minute checks. Dosing Instructions: ~If patient is conscious and able to swallow and NO enteral tube For initial BG 51-69mg/dL OR 15 minute recheck BG 51- 80 mg/dL - give 15 g For BG less than or equal to 50 mg/dL - give 30 g ~ If Enteral tube For initial BG 51-69mg/dL OR 15 minute recheck BG 51- 80 mg/dL - give apple juice 120 mL (4 oz or 15 g of CHO) via enteral tube For BG less than or equal to 50 mg/dL - Give apple juice 240 mL (8 oz or 30 g of CHO) via enteral tube ~Oral gel is preferable for conscious and able to swallow patient. ~IF gel unavailable or patient refuses may provide apple juice per Enteral tube dosing instructions. Document juice on I and O flowsheet. levalbuterol (XOPENEX) neb solution 0.63 mg 0.63 mg, Nebulization, EVERY 6 HOURS PRN, wheezing, shortness of breath, Starting on 11/04/24 at 1629, Levalbuterol orders will be substituted to albuterol unless intolerance is documented here: Tachycardia 1916 ($Given - Provider: Yonny Nichols, RT) 1350 ($Given - Provider: Kelsi Carey, RT) lidocaine (LMX4) cream Topical, EVERY 1 HOUR PRN, pain, with VAD insertion, Starting on 11/04/24 at 1611, Apply at least 30 minutes prior to VAD insertion in divided doses as needed for size of site for insertion. MAX Dose: 2.5 g ( of 5 g tube) Do NOT give if patient has a history of allergy to any local anesthetic or any coreen product. Do NOT use both lidocaine intradermal/subcutaneous injection and the lidocaine cream on the same site. lidocaine 1 % 0.1-1 mL 0.1-1 mL, Other, EVERY 1 HOUR PRN, mild pain with VAD insertion, Starting on 11/04/24 at 1611, MAX dose 1 mL subcutaneous OR intradermal along the side of the vein in divided doses as needed for VAD insertion. Do NOT give if patient has a history of allergy to any local anesthetic or any coreen product. Do NOT use both lidocaine intradermal/subcutaneous injection and the lidocaine cream on the same site. No anticoagulants IF patient has had acute trauma/surgery or recent intracranial, GI or urinary tract bleeding. No anticoagulants IF patient has had acute trauma/surgery or recent intracranial, GI or urinary tract bleeding. Patient is already receiving anticoagulation with heparin, enoxaparin (LOVENOX), warfarin (COUMADIN) or other anticoagulant medication CONTINUOUS PRN, Starting on 11/04/24 at 1614, Until 11/05/24 at 2134 senna-docusate (SENOKOT-S/PERICOLACE) 8.6-50 MG per tablet 1 tablet(Linked Group 3) 1 tablet, Oral, 2 TIMES DAILY PRN, constipation, Starting on 11/04/24 at 1611, If no bowel movement in 24 hours, increase to 2 tablets by mouth. IF more than 1 constipation PRN medication is ordered, administer step-vaca as indicated, moving to the next step ONLY if prior step ineffective. Step 1: senna-docusate (SENOKOT-S; PERICOLACE) OR bisacodyl (DULCOLAX) EC tablet Step 2: polyethylene glycol (MIRALAX/GLYCOLAX) Step 3: bisacodyl (DULCOLAX) suppository Step 4: enema Hold for loose stools. senna-docusate (SENOKOT-S/PERICOLACE) 8.6-50 MG per tablet 2 tablet(Linked Group 3) 2 tablet, Oral, 2 TIMES DAILY PRN, constipation, Starting on 11/04/24 at 1611, IF more than 1 constipation PRN medication is ordered, administer step-vaca as indicated, moving to the next step ONLY if prior step ineffective. Step 1: senna-docusate (SENOKOT-S; PERICOLACE) OR bisacodyl (DULCOLAX) EC tablet Step 2: polyethylene glycol (MIRALAX/GLYCOLAX) Step 3: bisacodyl (DULCOLAX) suppository Step 4: enema Hold for loose stools. sodium chloride (PF) 0.9% PF flush 3 mL 3 mL, Intracatheter, EVERY 1 MIN PRN, line flush, other, to ensure patency or to lock dormant line, Starting on 11/04/24 at 1611 0937 ($Given - Provider: Christy Mckeon RN) Linked Groups Order Group 1: acetaminophen (TYLENOL) tablet 650 mgJump to med 650 mg, Oral, EVERY 4 HOURS PRN, mild pain, other, and adjunct with moderate or severe pain or per patient request, Starting on 11/04/24 at 1614, Alternate with ibuprofen if ordered. Maximum acetaminophen dose from all sources = 75 mg/kg/day not to exceed 4 grams/day. Or acetaminophen (TYLENOL) Suppository 650 mgJump to med 650 mg, Rectal, EVERY 4 HOURS PRN, mild pain, other, and adjunct with moderate or severe pain or per patient request, Starting on 11/04/24 at 1614, Alternate with ibuprofen if ordered. Maximum acetaminophen dose from all sources = 75 mg/kg/day not to exceed 4 grams/day. Group 2: glucose gel 15-30 gJump to med 15-30 g, Oral, EVERY 15 MIN PRN, low blood sugar, Starting on 11/04/24 at 1641, Give first dose for initial blood glucose less than 70 mg/dL per the dosing instructions below. If blood glucose at 15 minute rechecks is still less than or equal to 80 mg/dL, continue to administer doses per blood glucose parameters every 15 minutes, as needed, until blood glucose level is at or above 80 mg/dL x 2 consecutive 15 minute checks. Dosing Instructions: ~If patient is conscious and able to swallow and NO enteral tube For initial BG 51-69mg/dL OR 15 minute recheck BG 51- 80 mg/dL - give 15 g For BG less than or equal to 50 mg/dL - give 30 g ~ If Enteral tube For initial BG 51-69mg/dL OR 15 minute recheck BG 51- 80 mg/dL - give apple juice 120 mL (4 oz or 15 g of CHO) via enteral tube For BG less than or equal to 50 mg/dL - Give apple juice 240 mL (8 oz or 30 g of CHO) via enteral tube ~Oral gel is preferable for conscious and able to swallow patient. ~IF gel unavailable or patient refuses may provide apple juice per Enteral tube dosing instructions. Document juice on I and O flowsheet. Or dextrose 50 % injection 25-50 mLJump to med 25-50 mL, Intravenous, EVERY 15 MIN PRN, low blood sugar, Administer over 1-5 Minutes, Starting on 11/04/24 at 1641, Use if have IV access, BG less than 70 mg/dL and meet dose criteria below: Dose if conscious and alert (or disorientated) and NPO = 25 mL Dose if unconscious / not alert = 50 mL Give first dose for initial blood glucose less than 70 mg/dL. If blood glucose at 15 minute recheck is less than or equal to 80 mg/dL continue to administer carbohydrate treatment every 15 minutes, as needed, based on blood glucose and assessment parameters until blood glucose level is above 80 mg/dL x 2 consecutive 15 minute checks. Or glucagon injection 1 mgJump to med 1 mg, Subcutaneous, EVERY 15 MIN PRN, low blood sugar, May repeat x 1 only, Starting on 11/04/24 at 1641, May give SQ or IM. ONLY use glucagon IF patient has NO IV access AND is UNABLE to swallow AND blood glucose is LESS than or EQUAL to 50 mg/dL. Group 3: senna-docusate (SENOKOT-S/PERICOLACE) 8.6-50 MG per tablet 1 tabletJump to med 1 tablet, Oral, 2 TIMES DAILY PRN, constipation, Starting on 11/04/24 at 1611, If no bowel movement in 24 hours, increase to 2 tablets by mouth. IF more than 1 constipation PRN medication is ordered, administer step-vaca as indicated, moving to the next step ONLY if prior step ineffective. Step 1: senna-docusate (SENOKOT-S; PERICOLACE) OR bisacodyl (DULCOLAX) EC tablet Step 2: polyethylene glycol (MIRALAX/GLYCOLAX) Step 3: bisacodyl (DULCOLAX) suppository Step 4: enema Hold for loose stools. Or senna-docusate (SENOKOT-S/PERICOLACE) 8.6-50 MG per tablet 2 tabletJump to med 2 tablet, Oral, 2 TIMES DAILY PRN, constipation, Starting on 11/04/24 at 1611, IF more than 1 constipation PRN medication is ordered, administer step-vaca as indicated, moving to the next step ONLY if prior step ineffective. Step 1: senna-docusate (SENOKOT-S; PERICOLACE) OR bisacodyl (DULCOLAX) EC tablet Step 2: polyethylene glycol (MIRALAX/GLYCOLAX) Step 3: bisacodyl (DULCOLAX) suppository Step 4: enema Hold for loose stools. documented in this encounter Additional Health Concerns [...] accurate information and submit it to the [facility]. 3. I will update CCC Team at outreach. Health Maintenance Due or Overdue 12/16/2023 Patient expresses financial resource strain 12/13 Mental Health Symptoms Need Improvement 04/05/19 Infection Onset Date Last Indicated Resolved Time Rule Out C-difficile 11/04/2024 11/04/2024 025 1:55 AM CDT Assessment Noted Time PHQ-9 Depression Total Score: 18 025 2:39 PM CDT documented as of this encounter Care Teams Signalling And Communications Engineer Relationship Specialty [place] [address] [place] [address] PCP - General Family Practice 07/11/14 [place] [address] [place] [address] Assigned PCP 12/16/11 Christy Campuzano PA-C [address] [place] [address] [id number] Referring Physician Family Medicine 04/22/20 Hans Cannon MD [address] [place] [address] [id number] Resident Pulmonary Disease 04/22/20 Estella Hassan, [facility] [address] [place], [place] [id number] Pharmacist Pharmacist 05/26/20 Elaina Moreno MD [address] [place] [address] [id number] Cardiovascular & Thoracic Surgery 08/06/20 John Webb MD [address] [id number] Cardiovascular Disease 08/25/21 John Webb MD [address] [place] [id number] Cardiovascular Disease 08/25/21 Estella Hassan, [facility] [address] [place] [address] Assigned MTM Pharmacist 12/09/21 Lindsay Carey OD [address] [facility] [place] [address] Ophthalmology 01/29/22 Richard Kam MD [address] [place], [place] [address] Assigned Musculoskeletal Provider 08/14/22 [place] [address] [facility], [address] [id number] Assigned Neuroscience Provider 01/01/23 12/03/24 Rosemarie Mcdowell, RN Comparison Shopper Diabetes Education 03/17/23 Mitra Kendall, COLLECTION CARD CLERK Lead Tungsten Refiner Primary Care - CC 12/12/23 Lizet Mann PA-C [address] [place] [id number] Assigned Cancer Care Provider 01/04/24 Ravi Brwonlee MD [address] [place] [address] [id number] Assigned Pulmonology Provider 01/04/24 Manuel Ahn OD [address] [place] [address] Shingle Catcher 01/05/24 Thalia Charles [facility] [address] [place], [place] [phone] Pharmacist Pharmacy 01/26/24 Gaurav Valenzuela APRN TRAIN DISPATCHER [address] [facility] [address] [place], [place] [address] Assigned Sleep Provider 02/04/24 Debbie Mann MD [address] [facility] [address] [place] [address] Cardiovascular Disease 02/24/24 Hakeem Chacko MBBS [address] [place] [address] Assigned Rheumatology Provider 04/05/24 Debbie Mann MD [address] [facility] [address] [place] [address] Assigned Heart and Vascular Provider 05/06/24 Timothy Tejada MD [address] [place] [phone] Ophthalmology 05/29/24 Timothy Tejada MD [address] [place] [phone] Assigned Surgical Provider 06/03/24 Elsie Roberts APRN TRAIN DISPATCHER [address] [facility] [address] [place] [address] Nurse Practitioner Pain Medicine 10/16/24 Cristy Morton MD [facility] [address] [address] Assigned Pediatric Specialist Provider 11/03/24 documented as of this encounter
--- OUTSIDE RECORDS SUMMARY | 2024-11-07 12:00 | XMS_ITS | Encounter Summary ---
Author Organization [facility] Address [address] [place] [address] Care Team Providers Care Crossing Flagman Name Role Phone Va Glez MD Primary Care Provider [phone] Va Glez MD Unavailable Christy CampuzanoC Unavailable [phone] Hans Cannon MD Unavailable Estella Hassan [facility] Unavailable Josh Cordero MD, Madhuri Unavailable [phone] John Webb MD Unavailable John Webb MD Unavailable Estella Hassan [facility] Unavailable Lindsay Carey OD Unavailable Richard Kam MD Unavailable Gaby Vila DO Unavailable [phone] Rosemarie Mcdowell RN Unavailable Mitra Kendall COMMAND AND CONTROL OFFICER Unavailable [phone] Lizet Mann PA-C Unavailable [phone] Ravi Brownlee MD Unavailable Manuel Ahn OD Unavailable Thalia Charles [facility] Unavailable [phone] Gaurav Valenzuela WRAPAROUND FACILITATOR MACHINE TRACER Unavailable [phone] Debbie Mann MD Unavailable [phone] Hakeem Chacko Unavailable Debbie Mann MD Unavailable [phone] Timothy Tejada MD Unavailable [phone] Timothy Tejada MD Unavailable [phone] Elsie Roberts WRAPAROUND FACILITATOR MACHINE TRACER Unavailable + Cristy Morton MD Unavailable [phone] Reason for Visit * Reason Comments RECHECK Encounter Details Date Type Department Care Team (Late st Contact Info) Description 11/07/2024 12:00 PM CDT Office Visit [address] [place] [phone] Hakeem Chacko MBBS [address] [place] [phone] Primary osteoarthritis of right wrist (Primary Dx); Polyarthralgia; ALVIN positive; Rheumatoid factor positive; Primary osteoarthritis involving multiple joints Social History Tobacco Use Types Packs/Day Years [...] re latives? 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 Gender Identity Not on file Sexual Orientation Not on file Occupation Industry Job Start Date Job End Date Not on file Not on file Not on file Not on file documented as of this encounter Last Filed Vital Signs Vital Sign Reading Time Taken Comments Blood Pressure 114/74 11/07/2024 12:07 PM CDT Pulse 103 11/07/2024 12:07 PM CDT Temperature 37 C (98.6 F) 11/07/2024 12:07 PM CDT Respiratory Rate - - Oxygen Saturation 94% 11/07/2024 12:07 PM CDT Inhaled Oxygen Concentration - - Weight 126.6 kg (279 lb) 11/07/2024 12:07 PM CDT Height - - Body Mass Index 47.89 11/04/2024 3:02 PM CDT documented in this encounter Progress Notes * Hakeem Chacko MBBS - 11/07/2024 12:00 PM CDT Rheumatology follow-up visit note Peter is a 64 year old male presents today for follow-up. Sumeet was seen today for recheck. Diagnoses and all orders for this visit: Primary osteoarthritis of right wrist - FL ARTHROCENTESIS ASPIR&/INJ INTERM JT/BURS W/US - triamcinolone (KENALOG-40) injection 20 mg Polyarthralgia ALVIN positive Rheumatoid factor positive Primary osteoarthritis involving multiple joints After pros and cons were discussed including risk of infection, bleeding, skin changes including thinning, pigmentary alteration and scarring to name a few, right wrist injected as noted in the orders section. This was done with nontouch technique. The patient tolerated the procedure well and had abrisk Marcaine effect. The postinjection care was discussed. Follow up in 3 months. HPI Peter Devi is a 64 year old male is here for follow-up of polyarthralgias in the background of multiple rheumatologic concerns in the context including osteoarthritis which is quite advanced, positive ALVIN rheumatoid factor. He has noted worsening pain in his neck and right upper extremity undergoing neurosurgical evaluation and contemplating corticosteroid injections. Meanwhile he has notedworsening pain in his right wrist this is the site which was injected nearly 6 months ago and had provided him durable benefit till recently. DETAILED EXAMINATION 11/07/24 : Vitals: 11/07/24 1207 BP: 114/74 BP Location: Right arm Patient Position: Sitting Cuff Size: Adult Large Pulse: 103 Temp: 98.6 ??F (37 ??C) TempSrc: Oral SpO2: 94% Weight: 126.6 kg (279 lb) Alert oriented. Head including the face is examined for malar rash, heliotropes, scarring, lupus pernio. Eyes examined for redness such as in episcleritis/scleritis, periorbital lesions. Neck/ Face examined for parotid gland swelling, range of motion of neck. Left upper and lower and right upper and lower extremities examined for tenderness, swelling, warmth of the appendicular joints, range of motion, edema, rash. Some of the important findings included: he does not have evidence of synovitis in the palpable joints of the upper extremities but tenderness of the right wrist, reduced ROM there. No significant deformities of the digits. minimal Heberden nodes. Range of motion of the shouldersshow full abduction. No JLT effusion or warmth of the knees. he does not have dactylitis of the digits. Ultrasound examination of the wrist had shown today like in the past some Doppler signals.(Thisis to be kept under consideration going forward given his positive rheumatoid factor) Patient Active Problem List Diagnosis Date Noted Atrial fibrillation with RVR (H) 11/04/2024 Priority: Medium Bilateral cellulitis of lower leg 10/24/2024 Priority: Medium Primary osteoarthritis of right knee 10/03/2024 Priority: Medium Chronic pain of right knee 10/03/2024 Priority: Medium Radicular pain in right arm 10/03/2024 Priority: Medium Right carpal tunnel syndrome 09/26/2024 Priority: Medium DDD (degenerative disc disease), cervical 09/26/2024 Priority: Medium Spondylolisthesis of cervical region 09/26/2024 Priority: Medium Cervical spinal stenosis 09/26/2024 Priority: Medium Nuclear senile cataract of both eyes 05/30/2024 Priority: Medium Diabetic polyneuropathy associated with type 2 diabetes mellitus (H) 05/22/2024 Priority: Medium Diverticulosis 02/17/2024 Priority: Medium Gallstones 02/17/2024 Priority: Medium Fatty liver 02/17/2024 Priority: Medium Esophageal reflux 12/23/2023 Priority: Medium LUZ (generalized anxiety disorder) 06/13/2023 Priority: Medium Primary osteoarthritis of right wrist 10/29/2021 Priority: Medium Bilateral low back pain without sciatica 07/20/2020 Priority: Medium Mediastinal cyst 06/23/2020 Priority: Medium Added automatically from request for surgery [id number] Thoracic aortic aneurysm without rupture (H) - 04/21/2020 Priority: Medium Mass in chest - [...] asthma without complication 01/27/2015 Priority: Medium Past Surgical History: Procedure Laterality Date DAVINCI EXCISE NODES THORACIC Right 07/23/2020 Procedure: ROBOT-ASSISTED mediastinal cyst excision; Surgeon: Elaina Moreno MD; Location: [facility] OR TOE SURGERY age 16 Past Medical History: Diagnosis Date Arthritis of knee 11/03/2015 CARDIOVASCULAR SCREENING; LDL GOAL LESS THAN 160 12/03/2011 Depressive disorder Diabetes (H) LUZ (generalized anxiety disorder) 01/17/2017 Glucose intolerance (impaired glucose tolerance) 04/03/2016 Major depressive disorder, recurrent episode, moderate (H) 03/26/2016 Mediastinal cyst Moderate persistent asthma 12/19/2013 Moderate persistent asthma without complication 01/27/2015 Morbid obesity due to excess calories (H) 03/26/2016 Obesity 03/15/2014 Allergies Allergen Reactions Singulair [Montelukast] Pt felt anxious on the medicine. Current Outpatient Medications Medication Sig Dispense Refill [...] by mouth every evening. 90 tablet 3 cephALEXin (KEFLEX) 500 MG capsule Take 1 capsule (500 mg) by mouth 3 times daily for 4 days. 12 capsule 0 cholecalciferol (VITAMIN D3) 1250 mcg (48348 units) capsule Take 1,250 mcg by mouth every 7 days. clindamycin (CLEOCIN) 300 MG capsule Take 1 capsule (300 mg) by mouth 4 times daily for 7 days. 28 capsule 0 diclofenac (VOLTAREN) 1 % topical gel Apply 2 g topically 4 times daily as needed. fluticasone (FLONASE) 50 MCG/ACT nasal spray [place] 1 spray into both nostrils daily as needed for rhinitis or allergies. gabapentin (NEURONTIN) 300 MG capsule Take 2 [...] for nausea. pioglitazone (ACTOS) 15 MG tablet Take 1 tablet (15 mg) by mouth daily. 90 tablet 1 family history includes Hypertension in his maternal grandmother; No Known Problems in his mother. Social Connections: Unknown (09/27/2024) Social Connection and Isolation Panel [NHANES] Frequency of Communication with Friends and Family: Not on file Frequency of Social Gatherings with Friends and Family: Once a week Attends [employer]: Not on file Active Member of Clubs or Organizations: Not on file Attends Club or Organization Meetings: Not on file Marital Status: Not on file WBC Date Value Ref Range Status 07/24/2020 12.7 (H) 4.0 - 11.0 10e9/L Final WBC Count Date Value Ref Range Status 11/05/2024 4.02 4.00 - 11.00 10e3/uL Final RBC Count Date Value Ref Range Status 11/05/2024 4.72 4.40 - 5.90 10e6/uL Final 07/24/2020 4.82 4.4 - 5.9 10e12/L Final Hemoglobin Date Value Ref Range Status 11/05/2024 13.4 13.3 - 17.7 g/dL Final 07/24/2020 14.0 13.3 - 17.7 g/dL Final Hematocrit Date Value Ref Range Status 11/05/2024 39.9 (L) 40.0 - 53.0 % Final 07/24/2020 41.3 40.0 - 53.0 % Final MCV Date Value Ref Range Status 11/05/2024 84.5 78.0 - 100.0 fL Final 07/24/2020 86 78 - 100 fl Final MCH Date Value Ref Range Status 11/05/2024 28.4 26.5 - 33.0 pg Final 07/24/2020 29.0 26.5 - 33.0 pg Final Platelet Count Date Value Ref Range Status 11/05/2024 177 150 - 450 10e3/uL Final 07/24/2020 210 150 - 450 10e9/L Final % Lymphocytes Date Value Ref Range Status 11/05/2024 17.2 % Final 05/12/2020 15.2 % Final AST Date Value Ref Range Status 11/04/2024 15 0 - 45 U/L Final ALT Date Value Ref Range Status 11/04/2024 23 0 - 70 U/L Final Albumin Date Value Ref Range Status 11/04/2024 4.0 3.5 - 5.2 g/dL Final Alkaline Phosphatase Date Value Ref Range Status 11/04/2024 91 40 - 150 U/L Final Creatinine Date Value Ref Range Status 11/05/2024 0.70 0.67 - 1.17 mg/dL Final 07/24/2020 0.94 0.66 - 1.25 mg/dL Final GFR Estimate Date Value Ref Range Status 11/05/2024 >90 >60 mL/min/1.73m2 Final Comment: eGFR calculated using 2020 CKD-EPI equation. 07/24/2020 87 >60 mL/min/[1.73_m2] Final Comment: Non GFR Calc Starting 02/28/2018, serum creatinine based estimated GFR (eGFR) will be calculated using the Chronic Kidney Disease Epidemiology Collaboration (CKD-EPI) equation. GFR, ESTIMATED POCT Date Value Ref Range Status 02/17/2024 >60 >60 mL/min/1.73m2 Final GFR Estimate If Black Date Value Ref Range Status 07/24/2020 >90 >60 mL/min/[1.73_m2] Final Comment: GFR Calc Starting 02/28/2018, serum creatinine based estimated GFR (eGFR) will be calculated using the Chronic Kidney Disease Epidemiology Collaboration (CKD-EPI) equation. Creatinine Urine Date Value Ref Range Status 02/18/2020 110 mg/dL Final Creatinine Urine mg/dL Date Value Ref Range Status 09/13/2023 95.5 mg/dL Final Comment: The reference ranges have not been established in urine creatinine. The results should be integrated into the clinical context for interpretation. 02/11/2021 105 mg/dL Final Erythrocyte Sedimentation Rate Date Value Ref Range Status 06/19/2024 8 0 - 20 mm/hr Final N terminal Pro BNP Inpatient Date Value Ref Range Status 11/08/2023 <36 0 - 900 pg/mL Final Comment: Reference range shown and results flagged as abnormal are suggested inpatient cut points for confirming diagnosis if CHF in an acute setting. Establishing a baseline value for each individual patientis useful for follow-up. An inpatient or emergency department NT-proPBNP <300 pg/mL effectively rules out acute CHF, with 99% negative predictive value. The outpatient non-acute reference range for ruling out CHF is: 0-125 pg/mL (age 18 to less than 75) 0-450 pg/mL (age 75 yrs and older) documented in this encounter Plan of Treatment Upcoming Encounters Date Type Department Care Team (Late st Contact Info) Description 12/11/2024 2:10 PM CDT Therapy Visit [address] [phone] Shanta Cooper, PT 12/14/2024 11:20 AM CDT Office Visit [facility] [address] [place] [address] Lizet Mann PA-C [address] [address] [place] [address] 12/17/2024 2:10 PM CDT Office Visit [facility] [address] [facility] 4th [place] [phone] Richard Kam MD [address] [place] [address] 12/19/2024 8:20 AM CDT Therapy Visit [address] [place] [phone] Shanta Cooper, PT 12/24/2024 5:00 PM CDT Therapy Visit [address] [phone] Pattie Casillas, PT 12/25/2024 10:20 AM CDT Therapy Visit [address] [address] Shanta Cooper, PT 01/03/2025 1:00 PM CDT Office Visit [address] [phone] Estella Hassan, [facility] [address] [place] [address] 01/03/2025 1:30 PM CDT Office Visit [address] [address] [place] [address] [place] [address] 01/08/2025 1:15 PM CDT Office Visit [facility] [address] [facility] [address] [place] [address] Hakeem Chacko MBBS [address] [place] [address] Scheduled Procedures Name Priority Associated Diagnoses Date/Ti [...] for health insurance by looking in to [employer] and talking with a FRW. Completed 3. I will look for a new job and will access resources that the [facility] offers. . Sarted new job 4. Continue to use Single Care to reduce the cost of my prescriptions. Create an action plan to increase financial stability Care Plan Patient expresses financial resource strain No Jorge Josefina Become up-to-date with health maintenance visit(s) Care [...] by household income. 2. I will contact [facility] to ask about medicare plans and if there are saving programs I qualify for by by calling [phone]. 3. I will see if I am eligible for unemployment after losing my job. I will call [phone] to ask for assistance with unemployment application. 4. I will apply for jobs. I will work with [facility] in finding a job (Empowerment.) 5. I will access [employer] and ask about financial resources (such as getting gas card.) Improve management of mental health symptoms and establish with mental health/psychosocia l supports Care Plan Mental Health Symptoms Need Improvement 70%( 5 10:47 AM CDT) No Enoch, Mitra K, COMMAND AND CONTROL OFFICER Note: Updated on 08/30/24 Barriers: I struggle with having anxiety.My children won;t talk with me due to my mental health concerns Strengths: I am accessing support that is available to me. Patient expressed understanding of goal: Yes Action steps to achieve this goal: 1. I will continue working with therapist at [facility]. 2. I will establish with Psychiatry. Planning to schedule with Ronnie. 3. I will meet with community farmworker [employer] Manjula Gresham. 4. I will look in to attending an IOP program. I will discuss with my [facility] therapist and number provided for [facility] Behavioral Access - [phone] to schedule assessment fr IOP program. 5. I will go to [facility] if I have concerning mental health symptoms. 6. I will access [facility] if needed by calling [phone]. 7. I will consider calling [facility] Adult Mental health intake at [phone]. documented as of this encounter Procedures Procedure Name Priority Date/Time Associated Diagnosis Comments FL ARTHROCENTESIS ASPIR&/INJ INTERM JT/BURS W/US Routine 11/07/2024 12:19 PM CDT Primary osteoarthritis of right wrist documented in this encounter Visit Diagnoses Diagnosis Primary osteoarthritis of right wrist- Primary Primary localized osteoarthrosis, forearm Polyarthralgia Pain in joint, multiple sites ALVIN positive Other and unspecified nonspecific immunological findings Rheumatoid factor positive Other and unspecified nonspecific immunological findings Primary osteoarthritis involving multiple joints documented in this encounter Administered Medications Inactive Administered Medications - up to 3 most recent administrations Medication Order MAR Action Action Date Dose Rate Site triamcinolone (KENALOG-40) injection 20 mg 20 mg, INTRA-ARTICULAR, ONCE, On Tue11/07/24 at 1230, For 1 doseIndications:Primary osteoarthritis of right wrist $Given 11/07/2024 12:44 PM CDT 20 mg Right Wrist documented in this encounter Additional Health Concerns [...] documented as of this encounter Care Teams Crossing Flagman Relationship Specialty [place] [address] [place] [address] PCP - General Family Practice 07/11/14 [place] [address] [place] [address] Assigned PCP 12/16/11 Christy Campuzano PA-C [address] [place] [address]132 Referring Physician Family Medicine 04/22/20 Hans Cannon MD [address] [place] [address] [id number] Resident Pulmonary Disease 04/22/20 Estella Hassan, [facility] [address] [place], [place] [address] Pharmacist Pharmacist 05/26/20 Elaina Moreno MD [address] [place] [address] Cardiovascular & Thoracic Surgery 08/06/20 John Webb MD [address] [place] [address] Cardiovascular Disease 08/25/21 John Webb MD [address] [place] [address] Cardiovascular Disease 08/25/21 [facility] [address] [place] [address] Assigned MTM Pharmacist 12/09/21 Lindsay Carey OD [address] [place] [address] Ophthalmology 01/29/22 Richard Kam MD [address] [place] [address] Assigned Musculoskeletal Provider 08/14/22 [place] [address] [address] Assigned Neuroscience Provider 01/01/23 12/03/24 Rosemarie Mcdowell RN Resources Representative Diabetes Education 03/17/23 Mitra Kendall, COMMAND AND CONTROL OFFICER Lead Back Tender [facility] 12/12/23 Lizet Mann PA-C [address] [place] [address] Assigned Cancer Care Provider 01/04/24 Ravi Brownlee MD [address] [place] [address] [address] [place] [address] Assigned Pulmonology Provider 01/04/24 Manuel Ahn OD [address] [place] [address] Mold Yard Supervisor 01/05/24 Thalia Charles [facility] [address] [place], [place] [id number] Pharmacist Pharmacy 01/26/24 Gaurav Valenzuela APRN MACHINE TRACER [address] [facility] [address] [place] [address] Assigned Sleep Provider 02/04/24 Debbie Mann MD [address] [facility] [address] [place] [address] Cardiovascular Disease 02/24/24 Hakeem Chacko MBBS [address] [place] [address] Assigned Rheumatology Provider 04/05/24 Debbie Mann MD [address] [facility] [address] [place] [address] Assigned Heart and Vascular Provider 05/06/24 Timothy Tejada MD [address] [place] [phone] Ophthalmology 05/29/24 Timothy Tejada MD [address] [place] [phone] Assigned Surgical Provider 06/03/24 Elsie Roberts APRN [facility] [address] [facility] [address] [place] [address] Nurse Practitioner Pain Medicine 10/16/24 Cristy Morton MD [address] [place] [address] SHANKAR ROMO [address] Assigned Pediatric Specialist Provider 11/03/24 documented as of this encounter
--- OUTSIDE RECORDS SUMMARY | 2024-11-07 15:00 | XMS_ITS | Encounter Summary ---
Author Organization [place] Address [address] [place] [address] Care Team Providers Care Shipfitter Name Role Phone Va Glez MD Primary Care Provider [phone] Va Glez MD Unavailable Christy CampuzanoC Unavailable [phone] Hans Cannon MD Unavailable Estella Hassan [facility] Unavailable Josh Cordero MD, Madhuri Unavailable [phone] John Webb MD Unavailable [phone] John Webb MD Unavailable Estella Hassan [facility] Unavailable Lindsay Carey OD Unavailable Richard Kam MD Unavailable Gaby Vila DO Unavailable Rosemraie Mcdowell RN Unavailable [phone] Mitra Kendall PLANT SAFETY LEADER Unavailable [phone] Lizet Mann PA-C Unavailable Ravi Brownlee MD Unavailable Manuel Ahn OD Unavailable Thalia Charles [facility] Unavailable [phone] Gaurav Valenzuela CTO DERMATOPATHOLOGIST Unavailable [phone] Debbie Mann MD Unavailable [phone] Hakeem Chacko [facility] Unavailable Debbie Mann MD Unavailable [phone] Timothy Tejada MD Unavailable [phone] Timothy Tejada MD Unavailable [phone] Elsie Roberts APRN DERMATOPATHOLOGIST Unavailable + Cristy Morton MD Unavailable [phone] Reason for Referral * CV Cardio consult (Routine: Next available opening) - Pending Review Specialty Diagnoses / Procedures Referred By Contac t Referred To Contact Cardiovascular Disease Diagnoses Aneurysm of ascending aorta without rupture Atrial fibrillation with RVR (H) Rashard Gleason APRN CNP [address] [place] [address] Phone: tel: fax: Referral ID Status Reason Start Date Expiration Date V isits Requested Visits Authorized [id number] Pending Review 11/07/2024 11/07/2025 1 1 Question Answer Reason for Consult: General Cardiology Patient Scheduling Instructions: [facility] will call you to coordinate your care as prescribed by your provider. If you don't hear from a pharmaceutical service representative within 2 business days, please call [phone]. Additional Information: new onset afib Comments Please be aware that coverage of these services is subject to the terms and limitations of your health insurance plan. Call member services at your health plan with any benefit or coverage questions. [facility] will call you to coordinate your care as prescribed by your provider. If you don't hear from a pharmaceutical service representative within 2 business days, please call [phone]. Reason for Visit * Reason Comments Hospital F/U 11/04 - 11/05 [place], A-fib and Diarrhea Encounter Details Date Type Department Care Team (Late st Contact Info) Description 11/07/2024 3:00 PM CDT Office Visit [facility] [id number] [place] [phone] Rashard Gleason APRN [facility] [id number] [place] [phone] Atrial fibrillation with RVR (H) (Primary Dx); Aneurysm of ascending aorta without rupture; Irregular heart rhythm Social History Tobacco Use Types Packs/Day Years [...] re latives? 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 Gender Identity Not on file Sexual Orientation Not on file Occupation Industry Job Start Date Job End Date Not on file Not on file Not on file Not on file documented as of this encounter Last Filed Vital Signs Vital Sign Reading Time Taken Comments Blood Pressure 144/80 11/07/2024 3:09 PM CDT Pulse 97 11/07/2024 3:09 PM CDT Temperature 36.6 C (97.8 F) 11/07/2024 3:09 PM CDT Respiratory Rate 16 11/07/2024 3:09 PM CDT Oxygen Saturation 95% 11/07/2024 3:09 PM CDT Inhaled Oxygen Concentration - - Weight 125.3 kg (276 lb 4.8 oz) 11/07/2024 3:09 PM CDT Height 175.3 cm (5' 9) 11/07/2024 3:09 PM CDT Body Mass Index 40.8 11/07/2024 3:09 PM CDT documented in this encounter Patient Instructions * Patient Instructions* Rashard Gleason APRN CNP - 11/07/2024 3:00 PM CDT Cardiology follow up for Afib w/ RVR documented in this encounter Progress Notes * Rashard Gleason APRN CNP - 11/07/2024 3:00 PM CDT Assessment & Plan (I48.91) Atrial fibrillation with RVR (H) (primary encounter diagnosis) (I71.21) Aneurysm of ascending aorta without rupture (I49.9) Irregular heart rhythm Comment: Patient overall stable. Noting occasional pauses on exam today. 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 Patient has history of aneurysm of ascending aorta. With patient's new onset atrial fibrillation with RVR in the ED would like patient to be evaluated by c ardiology. Referral placed. Patient requesting oximeter, DME order placed. Patient fully understands and is agreeable with plan of care, at this point patient will follow up as needed unless acute concerns arise in the meantime. Plan: EKG 12-lead complete w/read - Clinics, Adult Cardiology Eval Commercial [employer] Insurance Agent Referral, Other Respiratory Supplies for DME - ONLY FOR DME MED REC REQUIRED Post Medication Reconciliation Status: discharge medications reconciled and changed, per note/orders Roseline Fay is a 64 year old, presenting for the following health issues: Hospital F/U (11/04 - 11/05 [place], A-fib and Diarrhea) 11/07/2024 3:04 PM Additional Questions Roomed by AV HPI Hospital Follow-up Visit: Hospital/Long Term/IP Rehab Facility: [facility] Most Recent Admission Date: 11/04/2024 Most Recent Admission Diagnosis: Atrial fibrillation with RVR (H) - I48.91 Most Recent Discharge Date: 11/05/2024 Most Recent Discharge Diagnosis: Atrial fibrillation with RVR (H) - I48.91 Impaired skin integrity - R23.9 Exacerbation of asthma, unspecified asthma severity, unspecified whether persistent - J45.901 Diabetic polyneuropathy associated with type 2 diabetes mellitus (H) - E11.42 Bilateral cellulitis of lower leg - L03.116, L03.115 Chronic pain of right knee - M25.561, G89.29 Do you have any other stressors you would like to discuss with your provider? No Problems taking medications regularly: None Medication changes since discharge: None Problems adhering to non-medication therapy: None Summary of hospitalization: [facility] discharge summary reviewed Diagnostic Tests/Treatments reviewed. Follow up needed: EKG today Other Healthcare Providers Involved in Patient???s Care: Specialist appointment - cardiology referral placed. Update since discharge: stable. Plan of care communicated with patient Review of Systems Constitutional, HEENT, cardiovascular, pulmonary, gi and gu systems are negative, except as otherwise noted. Objective BP (!) 144/80 (BP Location: Right arm, Patient Position: Chair, Cuff Size: Adult Regular) Pulse 97 Temp 97.8 ??F (36.6 ??C) (Oral) Resp 16 Ht 1.753 m (5' 9) Wt 125.3 kg (276 lb 4.8 oz) SpO2 95% BMI 40.80 kg/m?? Body mass index is 40.8 kg/m??. Physical Exam Vitals and nursing note reviewed. Constitutional: General: He is not in acute distress. Appearance: Normal appearance. He is obese. He is not ill-appearing. Cardiovascular: Rate and Rhythm: Normal rate. Rhythm irregular. Heart sounds: No murmur heard. No friction rub. No gallop. Pulmonary: Effort: Pulmonary effort is normal. No respiratory distress. Breath sounds: No wheezing, rhonchi or rales. Skin: General: Skin is warm and dry. Neurological: Mental Status: He is alert. Psychiatric: Mood and Affect: Mood normal. Behavior: Behavior normal. Behavior is cooperative. Thought Content: Thought content normal. Judgment: Judgment normal. Signed Electronically by: Rashard Gleason APRN CNP documented in this encounter Plan of Treatment Upcoming Encounters Date Type Department Care Team (Late st Contact Info) Description 12/11/2024 2:10 PM CDT Therapy Visit [address] [phone] Shanta Cooper, PT 12/14/2024 11:20 AM CDT Office Visit [facility] [address] [place] [address] Lizet Mann PA-C [address] [place] [address] 12/17/2024 2:10 PM CDT Office Visit [facility] [address] [place] [phone] Richard Kam MD [address] [place] [address] 12/19/2024 8:20 AM CDT Therapy Visit [address] [phone] Shanta Cooper, PT 12/24/2024 5:00 PM CDT Therapy Visit [address] [phone] Pattie Casillas, PT 12/25/2024 10:20 AM CDT Therapy Visit [address] [phone] Shanta Cooper, PT 01/03/2025 1:00 PM CDT Office Visit [address] [phone] Mo Estella Beth, [facility] [address] [place] [address] 01/03/2025 1:30 PM CDT Office Visit [facility] [address] [place] [phone] [place] [address] [place] [address] 01/08/2025 1:15 PM CDT Office Visit [facility] [address] [facility] [address] [place] [phone] Hakeem Chacko [employer] [address] [place] [address] Scheduled Procedures Name Priority Associated Diagnoses Date/Ti me INJECTION, EPIDURAL, TRANSFO RAMINAL APPROACH Cervical radiculitis RELEASE, CARPAL TUNNEL, ENDOSCOPIC Right carpal tunnel syndrome Scheduled Referrals Name Type Priority Associated Diagnoses Orde r Schedule Adult Cardiology Eval [employer] Insurance Agent Referral Referral Routine: Next available opening Aneurysm of ascending aorta without rupture Atrial fibrillation with RVR (H) Expected: 11/07/2024 (Approximate), Expires: 11/07/2025 documented as of this encounter Goals Goal Patient Goal Type Associated Problems Recent Progress Patient-Stated? Author Health Maintenance Care Plan HP GENERAL PROBLEM 100%(10/29/19 10:17 AM CDT) No Mitra Kendall, PLANT SAFETY LEADER Note: Update on 05/25/22 Barriers: Currently without [...] for health insurance by looking in to [employer] and talking with a FRW. Completed 3. I will look for a new job and will access resources that the [employer] offers. . Sarted new job 4. Continue [...] by household income. 2. I will contact [facility] to ask about medicare plans and if there are saving programs I qualify for by by calling [phone]. 3. I will see if I am eligible for unemployment after losing my job. I will call [phone] to ask for assistance with unemployment application. 4. I will apply for jobs. I will work with [employer] in finding a job (Empowerment.) 5. I will access [employer] and ask about financial resources (such as getting gas card.) Improve management of mental health symptoms and establish with mental health/psychosocia l supports Care Plan Mental Health Symptoms Need Improvement 70%( 5 10:47 AM CDT) No Mitra Kendall, SIVLER Note: Updated on 08/30/24 Barriers: I struggle with having anxiety.My children won;t talk with me due to my mental health concerns Strengths: I am accessing support that is available to me. Patient expressed understanding of goal: Yes Action steps to achieve this goal: 1. I will continue working with therapist at [facility]. 2. I will establish with Psychiatry. Planning to schedule with Ronnie. 3. I will meet with community suction worker Manjula Gresham. 4. I will look in to attending an IOP program. I will discuss with my [facility] therapist and number provided for [facility] - [phone] to schedule assessment fr IOP program. 5. I will go to [facility] if I have concerning mental health symptoms. 6. I will access [facility] if needed by calling [phone]. 7. I will consider calling [facility] Adult Mental health intake at [phone]. documented as of this encounter Procedures Procedure Name Priority Date/Time Associated Diagnosis Comments EKG 12-LEAD COMPLETE W/READ - CLINICS Routine 11/07/2024 Irregular heart rhythm Aneurysm of ascending aorta without rupture Atrial fibrillation with RVR (H) documented in this encounter Results * EKG 12-lead complete w/read - Clinics (11/07/2024) Final Interpretation Rashard Gleason APRN DERMATOPATHOLOGIST ECG ORDERABLES Final Resul t documented in this encounter Visit Diagnoses Diagnosis Atrial fibrillation with RVR (H)- Primary Atrial fibrillation Aneurysm of ascending aorta without rupture Irregular heart rhythm Cardiac dysrhythmia, unspecified documented in this encounter Additional Health Concerns [...] documented as of this encounter Care Teams Shipfitter Relationship Specialty [place] [address] [place] [address] PCP - General Family Practice 07/11/14 [place] [address] [place] [address] Assigned PCP 12/16/11 Christy Campuzano PA-C [address] [place] [address] Referring Physician Family Medicine 04/22/20 Hans Cannon MD [address] [place] [address] Resident Pulmonary Disease 04/22/20 Estella Hassan, [facility] [address] [place] [address] Pharmacist Pharmacist 05/26/20 Elaina Moreno MD [address] [place] [address] Cardiovascular & Thoracic Surgery 08/06/20 John Webb MD [address] [place] 545[address] Cardiovascular Disease 08/25/21 John Webb MD [address] [place] [place] [id number] Cardiovascular Disease 08/25/21 Estella Hassan, [facility] [address] [place] [address] Assigned MTM Pharmacist 12/09/21 Lindsay Carey OD [address] [place] [address] Ophthalmology 01/29/22 Richard Kam MD [address] [place] [address] Assigned Musculoskeletal Provider 08/14/22 [place] [address] [address] Assigned Neuroscience Provider 01/01/23 12/03/24 Rosemarie Mcdowell RN Tax Accounting Assistant Diabetes Education 03/17/23 Enoch Mitra Jewel, PLANT SAFETY LEADER Lead Workers Compensation Manager Primary Care - CC 12/12/23 Lziet Mann PA-C [address] [place] [address] Assigned Cancer Care Provider 01/04/24 Ravi Brownlee MD [address] [place] [address] [address] [place] [address] Assigned Pulmonology Provider 01/04/24 Manuel Ahn OD [address] [place] [address] Liquefied Natural Gas Operator 01/05/24 Thalia Charles, [facility] [address] [place], [place] [phone] Pharmacist Pharmacy 01/26/24 Gaurav Valenzuela APRN DERMATOPATHOLOGIST [address] [facility] [address] [place] [address] Assigned Sleep Provider 02/04/24 Debbie Mann MD [address] [facility] [address] [place], [place] [phone] Cardiovascular Disease 02/24/24 Hakeem Chacko [employer] [address] [place] [address] Assigned Rheumatology Provider 04/05/24 Debbie Mann MD [address] [facility] [address] [place] [address] Assigned Heart and Vascular Provider 05/06/24 Timothy Tejada MD [address] [facility] [place] [place] [address] Ophthalmology 05/29/24 Timothy Tejada MD [address] [place] [address] Assigned Surgical Provider 06/03/24 Elsie Roberts APRN [facility] [address] [address] Nurse Practitioner Pain Medicine 10/16/24 Cristy [place] MD [address] [place] [address] [place] [address] Assigned Pediatric Specialist Provider 11/03/24 documented as of this encounter
--- OUTSIDE RECORDS SUMMARY | 2024-11-07 19:35 | XMS_ITS | Encounter Summary ---
Author Organization [place] Address [address] [place] [address] Care Team Providers Care Radiotelephone Technical Operator Name Role Phone Va Glez MD Primary Care Provider [phone] Va Glez MD Unavailable Christy CampuzanoC Unavailable [phone] Hans Cannon MD Unavailable Estella Hassan [facility] Unavailable [phone] Josh Cordero MD, Madhuri Unavailable [phone] John Webb MD Unavailable John Webb MD Unavailable [phone] Estella Hassan [facility] Unavailable Lindsay Carey OD Unavailable Richard Kam MD Unavailable Gaby Vila DO Unavailable [phone] Rosemarie Mcdowell RN Unavailable Mitra Kendall DENTAL OFFICE MANAGER Unavailable [phone] Lizet Mann PA-C Unavailable [phone] Ravi Brownlee MD Unavailable Manuel Ahn OD Unavailable Thalia Charles [facility] Unavailable [phone] Nicolas Gaurav Bell PLANT PROTECTION SUPERINTENDENT AP PROCESSOR Unavailable Debbie Mann MD Unavailable [phone] Hakeem Chacko [facility] Unavailable Debbie Mann MD Unavailable [phone] Timothy Tejada MD Unavailable [phone] Timothy Tejada MD Unavailable [phone] Elsie Roberts PLANT PROTECTION SUPERINTENDENT AP PROCESSOR Unavailable + Cristy oMrton MD Unavailable [phone] Reason for Visit * Reason Comments Asthma Patient here with co mplaint of recent SOB. Patient needs refill of albuterol inhaler. Encounter Details Date Type Department Care Team (Late st Contact Info) Description 11/07/2024 7:35 PM CDT Office Visit [facility] [address] [address] Yelena Carrillo, PLANT PROTECTION SUPERINTENDENT AP PROCESSOR [address] [place], [place] [id number] Moderate persistent asthma with acute exacerbation (Primary Dx) Social History Tobacco Use Types [...] re latives? 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 Gender Identity Not on file Sexual Orientation Not on file Occupation Industry Job Start Date Job End Date Not on file Not on file Not on file Not on file documented as of this encounter Last Filed Vital Signs Vital Sign Reading Time Taken Comments Blood Pressure 139/83 11/07/2024 7:38 PM CDT Pulse 99 11/07/2024 7:38 PM CDT Temperature 37.4 C (99.4 F) 11/07/2024 7:38 PM CDT Respiratory Rate 18 11/07/2024 7:38 PM CDT Oxygen Saturation 95% 11/07/2024 7:38 PM CDT Inhaled Oxygen Concentration - - Weight 125.2 kg (276 lb) 11/07/2024 7:38 PM CDT Height - - Body Mass Index 40.76 11/07/2024 3:09 PM CDT documented in this encounter Patient Instructions * Patient Instructions* Yelena Carrillo APRN CNP - 11/07/2024 7:35 PM CDT Proair sent. Restart proair. Restart prednisone. To ER if breathing is worsening. documented in this encounter Progress Notes * Yelena Carrillo APRN CNP - 11/07/2024 7:35 PM CDT Assessment & Plan Moderate persistent asthma with acute exacerbation - albuterol (PROAIR HFA/PROVENTIL HFA/VENTOLIN HFA) 108 (90 Base) MCG/ACT inhaler Dispense: 18 g; Refill: 0 Patient Instructions Proair sent. Restart proair. Restart prednisone. To ER if breathing is worsening. Return in about 2 days (around 11/09/2024) for with regular provider if symptoms persist. Yelena Carrillo APRN CNP [facility] Fay is a 64 year old male who presents to clinic today for the following health issues: Chief Complaint Patient presents with Asthma Patient here with complaint of recent SOB. Patient needs refill of albuterol inhaler. 11/07/2024 7:38 PM Additional Questions Roomed by Sheila Persaud MA Accompanied by self HPI URI Adult Onset of symptoms was 2 day(s) ago. Course of illness is worsening. Severity moderately severe Current and Associated symptoms: cough - non-productive, wheezing, and shortness of breath Treatment measures tried include OTC Cough med, Inhaler (name: albuterol), and Fluids. Predisposing factors include HX of asthma. Got a refill from when he was discharged 2 days ago but can't pick it up as it is going through a prior auth process. Review of Systems Constitutional, HEENT, cardiovascular, pulmonary, GI, , musculoskeletal, neuro, skin, endocrine and psych systems are negative, except as otherwise noted. Objective BP 139/83 (BP Location: Right arm, Patient Position: Sitting, Cuff Size: Adult Large) Pulse 99 Temp 99.4 ??F (37.4 ??C) (Tympanic) Resp 18 Wt 125.2 kg (276 lb) SpO2 95% BMI 40.76 kg/m?? Physical Exam GENERAL: alert and no distress NECK: no adenopathy, no asymmetry, masses, or scars RESP: no rales , no rhonchi, expiratory wheezes bibasilar, and decreased breath sounds throughout CV: regular rate and rhythm, normal S1 S2, no S3 or S4, no murmur, click or rub, no peripheral edema documented in this encounter Plan of Treatment Upcoming Encounters Date Type Department Care Team (Late st Contact Info) Description 12/11/2024 2:10 PM CDT Therapy Visit [facility] Rehabilitation Services [address] [phone] Shanta Cooper, PT 12/14/2024 11:20 AM CDT Office Visit [facility] [address] [place] [address] Lizet Mann PA-C [address] [place] [address] 12/17/2024 2:10 PM CDT Office Visit [facility] Orthopedic [facility] [address] [facility] 4th [place] [phone] Richard Kam MD 500 [place] [address] 12/19/2024 8:20 AM CDT Therapy Visit [address] [place] [phone] Shanta Cooper, PT 12/24/2024 5:00 PM CDT Therapy Visit [address] [place] [phone] Pattie Casillas, PT 12/25/2024 10:20 AM CDT Therapy Visit [address] [place] [address] Shanta Cooper, PT 01/03/2025 1:00 PM CDT Office Visit [address] [phone] Estella Hassan, [facility] [address] [place] [address] 01/03/2025 1:30 PM CDT Office Visit [address] [phone] Va Glez MD [address] [place] [address] 01/08/2025 1:15 PM CDT Office Visit [facility] [address] [facility] 200 [place] [address] Hakeem Chacko MBBS [address]45 [place] [address] Scheduled Procedures Name Priority Associated Diagnoses Date/Ti [...] for health insurance by looking in to [employer] and talking with a FRW. Completed 3. I will look for a new job and will access resources that the workforce center offers. . Sarted new job 4. [...] by household income. 2. I will contact [employer] to ask about medicare plans and if there are saving programs I qualify for by by calling [phone]. 3. I will see if I am eligible for unemployment after losing my job. I will call [phone] to ask for assistance with unemployment application. 4. I will apply for jobs. I will work with [employer] in finding a job (Empowerment.) 5. I will access [employer] and ask about financial resources (such as getting gas card.) Improve management of mental health symptoms and establish with mental health/psychosocia l supports Care Plan Mental Health Symptoms Need Improvement 70%( 5 10:47 AM CDT) No Mitra Kendall LSW Note: Updated on 08/30/24 Barriers: I struggle with having anxiety.My children won;t talk with me due to my mental health concerns Strengths: I am accessing support that is available to me. Patient expressed understanding of goal: Yes Action steps to achieve this goal: 1. I will continue working with therapist at [facility]. 2. I will establish with Psychiatry. Planning to schedule with Ronnie. 3. I will meet with community section gang worker Manjula Gresham. 4. I will look in to attending an IOP program. I will discuss with my [facility] therapist and number provided for [facility] Behavioral Access - [phone] to schedule assessment fr IOP program. 5. I will go to [facility] if I have concerning mental health symptoms. 6. I will access [facility] if needed by calling [phone]. 7. I will consider calling [facility] Adult Mental health intake at [phone]. documented as of this encounter Visit Diagnoses Diagnosis Moderate persistent asthma with acute exacerbation- Primary documented in this encounter Additional Health [...] [facility]. 3. I will update [facility] Team at outreach. Health Maintenance Due or Overdue 12/16/2023 Patient expresses financial resource strain 12/13 Mental Health Symptoms Need Improvement 04/05/19 25 Assessment Noted Time PHQ-9 Depression Total Score: 18 025 2:39 PM CDT documented as of this encounter Care Teams Radiotelephone Technical Operator Relationship Specialty [place] [address] [place] [address] PCP - General Family Practice 07/11/14 [place] [address] [place] [address] Assigned PCP 12/16/11 Christy Campuzano PA-C [address] [place] [address] [id number] Referring Physician Family Medicine 04/22/20 Hans Cannon MD [address] [place] [address] Resident Pulmonary Disease 04/22/20 Estella Hassan, [facility] [address] [place] [address] Pharmacist Pharmacist 05/26/20 Elaina Moreno MD [address] [place] [address] Cardiovascular & Thoracic Surgery 08/06/20 John Webb MD [address] [place] 9[address]275 Cardiovascular Disease 08/25/21 John Webb MD [address] SHANKAR RANGEL 341725 Cardiovascular Disease 08/25/21 Estella Hassan, [facility] [address] [place] [address] [id number] Assigned MTM Pharmacist 12/09/21 [place] [address] [place] [address] [place] [address] Ophthalmology 01/29/22 Richard Kam MD [address] [place] [address] 276725 Assigned Musculoskeletal Provider 08/14/22 [place] [address] [facility], [facility] [address] [place], [place] 649077 Assigned Neuroscience Provider 01/01/23 12/03/24 Rosemarie Mcdowell, RN Audio Visual Secretary Diabetes Education 03/17/23 Mitra Kendall, DENTAL OFFICE MANAGER Lead Web Master Primary Care - CC 12/12/23 Lizet Mann PA-C [address] [place] [address] Assigned Cancer Care Provider 01/04/24 Ravi Brownlee MD [address] [place] [address] 276 [place], [place] 682785 Assigned Pulmonology Provider 01/04/24 Manuel Ahn OD 6341 [place] [address] Dispatcher Motor Vehicle 01/05/24 Thalia Charles, [facility] [address] [place], [place] [phone] Pharmacist Pharmacy 01/26/24 Gaurav Valenzuela APRN AP PROCESSOR [address] [facility] 106 [place], [place] 9[address] Assigned Sleep Provider 02/04/24 Debbie Mann MD 1600 [facility] 200 [place], [place] [phone] Cardiovascular Disease 02/24/24 Hakeem Chacko MBBS [address] [place], [place] [phone] Assigned Rheumatology Provider 04/05/24 Debbie Mann MD 1600 [facility] 200 [place] [address] Assigned Heart and Vascular Provider 05/06/24 Timothy Tejada MD [address] [facility] [place] [phone] Ophthalmology 05/29/24 Timothy Tejada MD 6[address] [facility] [place] [phone] Assigned Surgical Provider 06/03/24 Elsie Roberts APRN AP PROCESSOR 1600 [facility] 101 [place], [place] [phone] Nurse Practitioner Pain Medicine 10/16/24 Cristy Morton MD [address] [place] [address] SHANKAR ROMO [address] Assigned Pediatric Specialist Provider 11/03/24 documented as of this encounter
--- OUTSIDE RECORDS SUMMARY | 2024-11-10 17:15 | XMS_ITS | Encounter Summary ---
Author Organization [place] Address [address] [place] [address] Care Team Providers Care Garnetter Name Role Phone Va Glez MD Primary Care Provider Va Glez MD Unavailable Christy CampuzanoC Unavailable [phone] Hans Cannon MD Unavailable [phone] Estella Hassan [facility] Unavailable [phone] Josh Cordero MD, Madhuri Unavailable [phone] John Webb MD Unavailable John Webb MD Unavailable Estella Hassan [facility] Unavailable Lindsay Carey OD Unavailable Richard Kam MD Unavailable Gaby Vila DO Unavailable Rosemarie Mcdowell RN Unavailable Mitra Kendall PAPER CONE MACHINE OPERATOR Unavailable [phone] Lizet Mann PA-C Unavailable Ravi Brownlee MD Unavailable Manuel Ahn OD Unavailable [phone] Thalia Charles [facility] Unavailable [phone] Gaurav Valenzuela WATER TEAM LEADER CAREER DEVELOPMENT COORDINATOR/TEACHER Unavailable Debbie Mann MD Unavailable RosendonormaHakeem burch [facility] Unavailable Debbie Mann MD Unavailable Timothy Tejada MD Unavailable [phone] Timothy Tejada MD Unavailable [phone] Elsie Roberts WATER TEAM LEADER CAREER DEVELOPMENT COORDINATOR/TEACHER Unavailable + Cristy Morton MD Unavailable [phone] Reason for Visit * Reason Comments Urgent Care Diarrhea for about a week now. Discharge from the Hospital Tuesday night. Not sure what is causing the diarrhea. Wondering if the last antibiotic he was on is causing this diarrhea. Went to the hospital for diarrhea, Afib and infection in the leg. Was sure if he should go to the ER for a stool kit. Encounter Details Date Type Department Care Team (Late st Contact Info) Description 11/10/2024 5:15 PM CDT Office Visit [facility] [place] [address] [facility] [address] [place] [address] Kelsi Mckeon PA-C 14[address] [place] [address] Diarrhea, unspecified type (Primary Dx); Bacterial intestinal infection, unspecified Social History Tobacco Use Types Packs/Day Years [...] re latives? Once a week 09/27/2024 Attends Sabianist Services Not on file 09/27 Active Member [...] Answer Date Recorded PHQ-2 Score 6 11/01/2024 [facility] - Occupational [...] in an overnight longterm, 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.) Yes 11/05/2024 Are you worried [...] file Legal 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 [employer] Gender Identity Not on file Sexual Orientation Not on file Occupation Industry Job Start Date Job End Date Not on file Not on file Not on file Not on file documented as of this encounter Last Filed Vital Signs Vital Sign Reading Time Taken Comments Blood Pressure 124/70 11/10/2024 5:22 PM CDT Pulse 94 11/10/2024 5:22 PM CDT Temperature 37.1 C (98.7 F) 11/10/2024 5:22 PM CDT Respiratory Rate - - Oxygen Saturation 93% 11/10/2024 5:22 PM CDT Inhaled Oxygen Concentration - - Weight 125.2 kg (276 lb) 11/10/2024 5:22 PM CDT Height - - Body Mass Index 40.76 11/07/2024 3:09 PM CDT documented in this encounter Plan of Treatment Upcoming Encounters Date Type Department Care Team (Late st Contact Info) Description 12/11/2024 2:10 PM CDT Therapy Visit [facility] Rehabilitation Services [address] [place] [phone] Shanta Cooper, MOIZ 12/14/2024 11:20 AM CDT Office Visit [facility] [id number] [place] [address] [place] [phone] Lizet Mann PA-C [address] [facility] [place] [address] 12/17/2024 2:10 PM CDT Office Visit [facility] Orthopedic [facility] 9[address] [facility] 4th [place] [address] Richard Kam MD [address] [place] [address] 12/19/2024 8:20 AM CDT Therapy Visit [address] [address] Shanta Cooper, PT 12/24/2024 5:00 PM CDT Therapy Visit [address] [address] Pattie Casillas, PT 12/25/2024 10:20 AM CDT Therapy Visit [address] [phone] Shanta Cooper, PT 01/03/2025 1:00 PM CDT Office Visit [address] [phone] Estella Hassan, [facility] 30[address] [place] [address] 01/03/2025 1:30 PM CDT Office Visit [address] [phone] Va Glez MD [address] [place] [address] 01/08/2025 1:15 PM CDT Office Visit [address] [address] Hakeem Chacko MBBS [address] [place] [address] Scheduled Orders Name Type Priority Associated Diagnoses Orde r Schedule Focused Enteric Pathogen Panel by PCR Microbiology Routine Diarrhea, unspecified type Bacterial intestinal infection, unspecified Expected: 11/10/2024 (Approximate), Expires: 11/10/2025 Scheduled Procedures Name Priority Associated Diagnoses Date/Ti [...] for health insurance by looking in to [employer] and talking with a FRW. Completed 3. I will look for a new job and will access resources that the Getting[employer] offers. . Sarted new job 4. Continue to use [facility] to reduce the cost of my prescriptions. Create an action plan to increase financial stability Care Plan Patient expresses financial resource strain No Josefina Patel Become up-to-date with health maintenance visit(s) Care Plan Health Maintenance Due or Overdue 30%( 3:13 PM CDT) No Mitra Kendall LSW [...] will work with FRW in applying for [facility], county assistance and to see if I qualify for Medicaid. I need to ask spouse what her income is as it goes by household income. 2. I will contact [employer] to ask about medicare plans and if there are saving programs I qualify for by by calling [phone]. 3. I will see if I am eligible for unemployment after losing my job. I will call [phone] to ask for assistance with unemployment application. 4. I will apply for jobs. I will work with [employer] in finding a job (Empowerment.) 5. I will access [employer] and ask about financial resources (such as [...] I will continue working with therapist at [facility]. 2. I will establish with Psychiatry. Planning to schedule with Ronnie. 3. I will meet with community ornamental metal worker apprentice Manjula Gresham. 4. I will look in to attending an IOP program. I will discuss with my [facility] therapist and number provided for [facility] Behavioral Access - [phone] to schedule assessment fr IOP program. 5. I will go to [facility] if I have concerning mental health symptoms. 6. I will access [facility] Crisis if needed by calling [phone]. 7. I will consider calling [facility] Adult Mental health intake at [phone]. documented as of this encounter Visit Diagnoses Diagnosis Diarrhea, unspecified type- Primary Bacterial intestinal infection, unspecified documented in this encounter Additional Health [...] accurate information and submit it to the [facility]. 3. I will update [facility] Team at outreach. Health Maintenance Due or Overdue 12/16/2023 Patient expresses financial resource strain 12/13 Mental Health Symptoms Need Improvement 04/05/19 25 Assessment Noted Time PHQ-9 Depression Total Score: 18 025 2:39 PM CDT documented as of this encounter Care Teams Garnetter Relationship Specialty [place] [address] [place] [address] PCP - General Family Practice 07/11/14 [place] [address] [place] [address] Assigned PCP 12/16/11 Christy Campuzano PA-C [address] [place] [address] 249452 Referring Physician Family Medicine 04/22/20 Hans Cannon MD [address] [place] [address] Resident Pulmonary Disease 04/22/20 Estella Hassan, [facility] [address] [place] [address] 805926 Pharmacist Pharmacist 05/26/20 Elaina Moreno MD [address] [place] [address] 947665 Cardiovascular & Thoracic Surgery 08/06/20 John Webb MD [address] 047225 Cardiovascular Disease 08/25/21 John Webb MD [address] 526765 Cardiovascular Disease 08/25/21 Estella Hassan, [facility] 30[address] [place] [address] Assigned MTM Pharmacist 12/09/21 Lindsay Carey OD [address] [facility] [place] [address] Ophthalmology 01/29/22 Richard Kam MD 500 [place] [address] Assigned Musculoskeletal Provider 08/14/22 [place] [address] [facility] 300 [place] [address] Assigned Neuroscience Provider 01/01/23 12/03/24 Rosemarie Mcdowell, RN Fingerprint Classifier Diabetes Education 03/17/23 Mitra Kendall, PAPER CONE MACHINE OPERATOR Lead Vp Strategic Planning Primary Care - CC 12/12/23 Lizet Mann PA-C [address] 99 [place] [address] Assigned Cancer Care Provider 01/04/24 Ravi Brownlee MD [address] [place] [address] 276 [place], [place] 744765 Assigned Pulmonology Provider 01/04/24 Manuel Ahn OD 6341 [place], [place] 725062 Spring Inspector 01/05/24 Thalia Charles [facility] [address] [place], [place] [phone] Pharmacist Pharmacy 01/26/24 Gaurav Valenzuela APRN CAREER DEVELOPMENT COORDINATOR/TEACHER [address] [facility] 106 [place] [address] Assigned Sleep Provider 02/04/24 Debbie Mann MD 1600 [facility] 200 [place] [address] Cardiovascular Disease 02/24/24 Hakeem Chacko MBBS 2945 [place] [address] Assigned Rheumatology Provider 04/05/24 Debbie Mann MD 1600 [facility] 200 [place] [address] Assigned Heart and Vascular Provider 05/06/24 Timothy Tejada MD 6341 [place] [address] Ophthalmology 05/29/24 Timothy Tejada MD [address]341 [place] [address] Assigned Surgical Provider 06/03/24 Elsie Roberts APRN [facility] 1600 [facility] 101 [place] [address] Nurse Practitioner Pain Medicine 10/16/24 Cristy Morton MD [address] [place] [address] SHANKAR ROMO [address] Assigned Pediatric Specialist Provider 11/03/24 documented as of this encounter
--- OUTSIDE RECORDS SUMMARY | 2024-11-15 11:00 | XMS_ITS | Encounter Summary ---
Author Organization [facility] Address [address] [place] [address] Care Team Providers Care Trolley Car Mechanic Name Role Phone Va Glez MD Primary Care Provider [phone] Va Glez MD Unavailable Christy CampuzanoC Unavailable [phone] Hans Cannon MD Unavailable [phone] Estella Hassan [facility] Unavailable Josh Cordero MD, Madhuri Unavailable [phone] John Webb MD Unavailable John Webb MD Unavailable Estella Hassan [facility] Unavailable Lindsay Carey OD Unavailable Richard Kam MD Unavailable Gaby Vila DO Unavailable Rosemarie Mcdowell RN Unavailable Mitra Kenadll ERECTOR OPERATOR Unavailable [phone] Lizet Mann PA-C Unavailable Ravi Brownlee MD Unavailable Manuel Ahn OD Unavailable [phone] Thalia Charles [facility] Unavailable [phone] Gaurav Valenzuela MANAGER ARCHITECTURAL SPRING CLIPPER Unavailable [phone] Debbie Mann MD Unavailable [phone] Hakeem Chacko MB Unavailable Debbie Mann MD Unavailable [phone] Timothy Tejada MD Unavailable [phone] Timothy Tejada MD Unavailable [phone] Elsie Roberts MANAGER ARCHITECTURAL SPRING [employer]PER Unavailable + Cristy Morton MD Unavailable [phone] Reason for Visit * Reason Comments Diarrhea Medication Request Refill on albuterol Encounter Details Date Type Department Care Team (Late st Contact Info) Description 11/15/2024 11:00 AM CDT Office Visit [facility] [address] [place] [phone] Whitney Hood PA-C [address] [place] [address] Diarrhea, unspecified type (Primary Dx); Moderate persistent asthma, unspecified whether complicated; Anterolisthesis of cervical spine; Retrolisthesis; Cervical radiculopathy; Type 2 diabetes mellitus without complication, without [...] re latives? 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 Gender Identity Not on file Sexual Orientation Not on file Occupation Industry Job Start Date Job End Date Not on file Not on file Not on file Not on file documented as of this encounter Last Filed Vital Signs Vital Sign Reading Time Taken Comments Blood Pressure 128/70 11/15/2024 10:56 AM CDT Pulse 89 11/15/2024 10:56 AM CDT Temperature 36.6 C (97.8 F) 11/15/2024 10:56 AM CDT Respiratory Rate 18 11/15/2024 10:56 AM CDT Oxygen Saturation 93% 11/15/2024 11:12 AM CDT Inhaled Oxygen Concentration - - Weight 125.2 kg (276 lb) 11/15/2024 10:56 AM CDT Height - - Body Mass Index 40.76 11/07/2024 3:09 PM CDT documented in this encounter Patient Instructions * Patient Instructions* Whitney Hood PA-C - 11/15/2024 11:00 AM CDT Imodium as needed If diarrhea not improving in the next 2 weeks can obtain colonoscopy. documented in this encounter Progress Notes * Whitney Hood PA-C - 11/15/2024 11:00 AM CDT Assessment & Plan Diarrhea, unspecified type Not improving. I recommended trying some Imodium as needed. He has had negative testing for c diff and for other enteric pathogens. If still not improving can consider colonoscopy looking for microscopic colitis. Checking BMP today for kidney function and electrolytes, given on going symptoms. - Basic metabolic panel (Ca, Cl, CO2, Creat, Gluc, K, Na, BUN); Future - loperamide (IMODIUM A-D) 2 MG tablet; Take 1 tablet (2 mg) by mouth 3 times daily as needed for diarrhea. - Basic metabolic panel (Ca, Cl, CO2, Creat, Gluc, K, Na, BUN) Moderate persistent asthma, unspecified whether complicated Has had difficult with cost of the controller inhalers. - albuterol (PROAIR HFA/PROVENTIL HFA/VENTOLIN HFA) 108 (90 Base) MCG/ACT inhaler; Inhale 2 puffs into the lungs every 6 hours as needed for shortness of breath, wheezing or cough. - fluticasone-salmeterol (ADVAIR) 250-50 MCG/ACT inhaler; Inhale 1 puff into the lungs every 12 hours. Anterolisthesis of cervical spine Refill provided today. Has upcoming injection scheduled. - gabapentin (NEURONTIN) 300 MG capsule; Take 2 capsules (600 mg) by mouth 2 times daily. Retrolisthesis Refill provided today. Has upcoming injection scheduled. - gabapentin (NEURONTIN) 300 MG capsule; Take 2 capsules (600 mg) by mouth 2 times daily. Cervical radiculopathy Refill provided today. Has upcoming injection scheduled. - gabapentin (NEURONTIN) 300 MG capsule; Take 2 capsules (600 mg) by mouth 2 times daily. Type 2 diabetes mellitus without complication, without long-term current use of insulin (H) Not quite due for A1c. Will defer to PCP. Albumin due and will obtain today. - Albumin and Creatinine with Ratio Random Urine Quantitative; Future - Albumin and Creatinine with Ratio Random Urine Quantitative Review of external notes as documented elsewhere in note Review of the result(s) of each unique test - As noted above Ordering of each unique test Prescription drug management 31 minutes spent by me on the date of the encounter doing chart review, history and exam, documentation and further activities per the note The longitudinal plan of care for the diagnosis(es)/condition(s) as documented were addressed during this visit. Due to the added complexity in care, I will continue to support Sumeet in the subsequentmanagement and with ongoing continuity of care. Subjective Sumeet is a 64 year old, presenting for the following health issues: Diarrhea and Medication Request (Refill on albuterol ) 11/15/2024 10:53 AM Additional Questions Roomed by Amelia Accompanied by Self Diarrhea History of Present Illness Mental Health Follow-up: Patient presents to follow-up on Depression & Anxiety.Patient's depression since last visit has been: No change The patient is having other symptoms associated with depression. Patient's anxiety since last visit has been: No change The patient is having other symptoms associated with anxiety. Any significant life events: relationship concerns, job concerns, financial concerns, health concerns and other Patient is feeling anxious or having panic attacks. Patient has no concerns about alcohol or drug use. Reason for visit: Diarearea and loose stools for 9th day now Symptom onset: 1-2 weeks ago Symptoms include: Loose waterery stools Symptom intensity: Moderate Symptom progression: Staying the same Had these symptoms before: No What makes it worse: Yes eating What makes it better: Yes not eating He is missing 2 dose(s) of medications per week. Diarrhea Onset/Duration: 2 weeks (since being in hospital) Description: Consistency of stool: watery and loose Blood in stool: No Number of loose stools past 24 hours: 3-4 times a day- watery and loose Progression of Symptoms: same Accompanying signs and symptoms: Fever: No Nausea/Vomiting: YES - nausea Abdominal pain: YES Weight loss: No Episodes of constipation: No History Ill contacts: No Recent use of antibiotics: yes Recent travels: No Recent medication-new or changes(Rx or OTC): YES Precipitating or alleviating factors: None Therapies tried and outcome: using the ondansetron for nausea He has had testing for c diff and other enteric pathogens all negative so far. Objective BP 128/70 (BP Location: Right arm, Patient Position: Sitting, Cuff Size: Adult Large) Pulse 89 Temp 97.8 ??F (36.6 ??C) (Oral) Resp 18 Wt 125.2 kg (276 lb) SpO2 (!) 90% BMI 40.76 kg/m?? Body mass index is 40.76 kg/m??. Physical Exam GENERAL: No acute distress HEENT: Normocephalic CARDIAC: Regular rate and rhythm. PULMONARY: Lungs are clear to auscultation bilaterally. No wheezes, rhonchi or crackles. NEURO: Alert and non-focal Signed Electronically by: Whitney Hood PA-C documented in this encounter Plan of Treatment Upcoming Encounters Date Type Department Care Team (Late st Contact Info) Description 12/11/2024 2:10 PM CDT Therapy Visit [place] [address] [place] [phone] Shanta Cooper, PT 12/14/2024 11:20 AM CDT Office Visit [address] [phone] Lizet Mann PA-C [address] [place] [address] 12/17/2024 2:10 PM CDT Office Visit [facility] [address] 4[address] [place] [phone] Richard Kam MD [address] [place] [address] 12/19/2024 8:20 AM CDT Therapy Visit [place] [address] [place] [phone] Shanta Cooper, PT 12/24/2024 5:00 PM CDT Therapy Visit [address] [place] [phone] Pattie Casillas, PT 12/25/2024 10:20 AM CDT Therapy Visit [place] [address] [place] [phone] Shanta Cooper, PT 01/03/2025 1:00 PM CDT Office Visit [facility] [address] [place] [phone] Estella Hassan, [facility] [address] [place] [address] 01/03/2025 1:30 PM CDT Office Visit [facility] [address] [place] [phone] [place] [address] [place], [place] [phone] 01/08/2025 1:15 PM CDT Office Visit [facility] [address] [facility] [address] [place] [phone] Hakeem Chacko MBBS [address] [place] [address] Scheduled Procedures Name Priority Associated Diagnoses Date/Ti [...] job and will access resources that the [employer] offers. . Sarted new job 4. Continue [...] by household income. 2. I will contact [employer] [facility] to ask about medicare plans and if there are saving programs I qualify for by by calling [phone]. 3. I will see if I am eligible for unemployment after losing my job. I will call [phone] to ask for assistance with unemployment application. 4. I will apply for jobs. I will work with [facility] in finding a job (Empowerment.) 5. I will access [employer] and ask about financial resources (such as getting gas card.) Improve management of mental health symptoms and establish with mental health/psychosocia l supports Care Plan Mental Health Symptoms Need Improvement 70%( 10:47 AM CDT) Mitra Borja, SILVER Note: Updated on 08/30/24 Barriers: I struggle with having anxiety.My children won;t talk with me due to my mental health concerns Strengths: I am accessing support that is available to me. Patient expressed understanding of goal: Yes Action steps to achieve this goal: 1. I will continue working with therapist at [facility]. 2. I will establish with Psychiatry. Planning to schedule with Ronnie. 3. I will meet with community skidway worker Manjula Gresham. 4. I will look in to attending an IOP program. I will discuss with my [facility] therapist and number provided for [facility] Behavioral Access - [phone] to schedule assessment fr IOP program. 5. I will go to [facility] if I have concerning mental health symptoms. 6. I will access [facility] Crisis if needed by calling [phone]. 7. I will consider calling [facility] Adult Mental health intake at [phone]. documented as of this encounter Procedures Procedure Name Priority Date/Time Associated Diagnosis Comments ALBUMIN AND CREATININE WITH RATIO RANDOM URINE QUANTITATIVE Routine 11/15/2024 11:44 AM CDT Type 2 diabetes mellitus without complication, without long-term current use of insulin (H) BASIC METABOLIC PANEL Routine 11/15/2024 11:40 AM CDT Diarrhea, unspecified type documented in this encounter Results * Albumin and Creatinine with Ratio Random Urine Quantitative (11/15/2024 11:44 AM CDT) Creatinine Urine mg/dL 106.0 mg/dL 11/16/2024 3:39 AM CDT [facility] Comment:The reference ranges have not been established in urine creatinine. The results should be integrated into the clinical context for interpretation. Albumin Urine mg/L <12.0 mg/L 2024 3:39 AM CDT [facility] Comment:The reference ranges have not been established in urine albumin. The results should be integrated into the clinical context for interpretation. Albumin Urine mg/g Cr 11/16/2024 3:39 AM CDT [facility] Comment: Unable to calculate, [...] control, and institution of therapy with an qbddbsucpiy-gmyvhlvkqo-ajrgfx (MILES) inhibitor (if the patient can tolerate it). Urine URINE SPECIMEN / Unknown Non-blood Collection / Unknown 11/15/2024 11:44 AM CDT 11/15/2024 11:44 AM CDT us Whitney Hood PA-C LAB - URINE ORDERABLES Fin al Result [facility] [address] [facility], [address] [place] [address] * (ABNORMAL) Basic metabolic panel (Ca, Cl, CO2, Creat, Gluc, K, Na, BUN) (11/15/2024 11:40 AM CDT) Sodium 139 135 - 145 mmol/L 11/16/2024 3:46 AM CDT [facility] Potassium 4.7 3.4 - 5.3 mmol/L 11/16/2024 3:46 AM CDT [facility] Chloride 100 98 - 107 mmol/L 11/16/2024 3:46 AM CDT [facility] Carbon Dioxide (CO2) 28 22 - 29 mmol/L 11/16/2024 3:46 AM CDT [facility] Anion Gap 11 7 - 15 mmol/L 11/16/2024 3:46 AM CDT [facility] Urea Nitrogen 17.1 8.0 - 23.0 mg/dL 11/16/2024 3:46 AM CDT [facility] Creatinine 0.72 0.67 - 1.17 mg/dL 11/16/2024 3:46 AM CDT [facility] GFR Estimate >90 >60 mL/min/1.7 3m2 11/16/2024 3:46 AM CDT [facility] Comment:eGFR calculated us2020 CKD-EPI equation. Calcium 9.6 8.8 - 10.4 mg/dL 11/16/2024 3:46 AM CDT [facility] Glucose 266(H) 70 - 99 mg/dL 11/16/2024 3:46 AM CDT [facility] Blood BLOOD SPECIMEN / Unknown Venipuncture / Unknown 11/15/2024 11:40 AM CDT 11/15/2024 11:40 AM CDT us Whitney Hood PA-C LAB - BLOOD ORDERABLES Fin al Result [facility] [address] [facility], [address] [phone] documented in this encounter Visit Diagnoses Diagnosis Diarrhea, unspecified type- Primary Moderate persistent asthma, unspecified whether complicated Anterolisthesis of cervical spine Retrolisthesis Disorder of bone and cartilage, unspecified Cervical radiculopathy Brachial neuritis or radiculitis nos Type 2 diabetes mellitus without complication, without [...] documented as of this encounter Care Teams Trolley Car Mechanic Relationship Specialty [place] [address] [place] [address] PCP - General Family Practice 07/11/14 [place] [address] [place] [address] Assigned PCP 12/16/11 Christy Campuzano PA-C [address] [place] [phone] Referring Physician Family Medicine 04/22/20 Hans Cannon MD [address] [place] [phone] Resident Pulmonary Disease 04/22/20 Estella Hassan, [facility] [address] [place], [place] [address] Pharmacist Pharmacist 05/26/20 Elaina Moreno MD [address] [place] [address] Cardiovascular & Thoracic Surgery 08/06/20 John Webb MD [address] [address] Cardiovascular Disease 08/25/21 John Webb MD [address] [address] Cardiovascular Disease 08/25/21 [facility] [address] [place] [address] Assigned MTM Pharmacist 12/09/21 Lindsay Carey OD [address] [facility] [place] [address] Ophthalmology 01/29/22 Richard Kam MD [address] [place] [address] Assigned Musculoskeletal Provider 08/14/22 [place] [address] [address] Assigned Neuroscience Provider 01/01/23 12/03/24 Rosemarie Mcdowell RN Addressing Machine Operator Diabetes Education 03/17/23 Mitra Kendall, ERECTOR OPERATOR Lead Brine Purifier Primary Care - CC 12/12/23 Lizet Mann PA-C [address] [place] [address] Assigned Cancer Care Provider 01/04/24 Ravi Brownlee MD [address] [place] [address], [place] [address] Assigned Pulmonology Provider 01/04/24 Manuel Ahn OD [address] [place] [address] Dividend Deposit Entry Clerk 01/05/24 Thalia Charles [facility] [address] [place], [place] [phone] Pharmacist Pharmacy 01/26/24 Gaurav Valenzuela APRN [employer] [address] [facility] [address] [place] [address] Assigned Sleep Provider 02/04/24 Debbie Mann MD [address] [facility] [address] [place] [address] Cardiovascular Disease 02/24/24 Hakeem Chacko MBBS [address] [place] [address] Assigned Rheumatology Provider 04/05/24 Debbie Mann MD [address] [facility] [address] [place] [address] Assigned Heart and Vascular Provider 05/06/24 Timothy Tejada MD [address] [place] [phone] Ophthalmology 05/29/24 Timothy Tejada MD [address] [place] [phone] Assigned Surgical Provider 06/03/24 Elsie Roberts APRN [facility] [address] [place] [address] [place] [address] Nurse Practitioner Pain Medicine 10/16/24 Cristy Morton MD [address] [place] [address] SHANKAR ROMO [address] Assigned Pediatric Specialist Provider 11/03/24 documented as of this encounter
--- OUTSIDE RECORDS SUMMARY | 2024-11-16 16:20 | XMS_ITS | Encounter Summary ---
Author Organization [facility] Address [address] [place] [address] Care Team Providers Care Rice Farmworker Name Role Phone Va Glez MD Primary Care Provider Va Glez MD Unavailable Christy CampuzanoC Unavailable [phone] Hans Cannon MD Unavailable Estella Hassan [facility] Unavailable Josh Cordero MD, Madhuri Unavailable [phone] John Webb MD Unavailable [phone] John Webb MD Unavailable Estella Hassan [facility] Unavailable [phone] Lindsay Carey OD Unavailable Richard Kam MD Unavailable Gaby Vila DO Unavailable [phone] Rosemarie Mcdowell RN Unavailable Mitra Kendall CONFERENCE CONCIERGE Unavailable [phone] Lizet Mann PA-C Unavailable Ravi Brownlee MD Unavailable Manuel Ahn OD Unavailable Thalia Charles [facility] Unavailable [phone] Gaurav Valenzuela THEATRICAL VARIETY AGENT AIRPLANE PILOT HELPER Unavailable [phone] Debbie Mann MD Unavailable [phone] Hakeem Chacko MB Unavailable Debbie Mann MD Unavailable [phone] Timothy Tejada MD Unavailable [phone] Timothy Tejada MD Unavailable [phone] Elsie Roberts THEATRICAL VARIETY AGENT AIRPLANE PILOT HELPER Unavailable + Cristy Morton MD Unavailable [phone] Reason for Visit * Rehab Therapy Physical Therapy (Routine: Next available opening) - Closed Specialty Diagnoses / Procedures Referred By Contandrew t Referred To Contact Physical Therapy Diagnoses Primary osteoarthritis of right knee Chronic pain of right knee [address] [address] Phone: tel: Referral ID Status Reason Start Date Expiration Date Visits Re quested Visits Authorized [id number] Closed 09/17/2024 12/10/2024 8 8 Encounter Details Date Type Department Care Team (Latest Contact Info) Description 11/16/2024 4:20 PM CDT Therapy Visit [address] [phone] Pattie Casillas, PT Arthritis of knee (Primary [...] Answer Date Recorded PHQ-2 Score 6 11/01/2024 [facility] Occupational Stress Questionnaire Answer Date Recorded [...] [place], 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.) Yes 11/05/2024 Are you worried [...] file 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 Gender Identity Not on file Sexual Orientation Not on file Occupation Industry Job Start Date Job End Date Not on file Not on file Not on file Not on file documented as of this encounter Plan of Treatment Upcoming Encounters Date Type Department Care Team (Late st Contact Info) Description 12/11/2024 2:10 PM CDT Therapy Visit [address] [phone] Shanta Cooper, PT 12/14/2024 11:20 AM CDT Office Visit [address] [phone] Lizet Mann PA-C [address] [place] [address] 12/17/2024 2:10 PM CDT Office Visit [facility] [address] [place] [address] 4th [place] [phone] Richard Kam MD [address] [place] [address] 12/19/2024 8:20 AM CDT Therapy Visit [address] [phone] Shanta Cooper, PT 12/24/2024 5:00 PM CDT Therapy Visit [address] [place] [phone] Matthewjosue Mollymimi Dumas, PT 12/25/2024 10:20 AM CDT Therapy Visit [address] [place] [phone] Shanta Cooper, PT 01/03/2025 1:00 PM CDT Office Visit [address] [phone] Estella Hassan, [facility] [address] [place] [address] 01/03/2025 1:30 PM CDT Office Visit [address] [phone] [place] [address] [place], [place] [phone] 01/08/2025 1:15 PM CDT Office Visit [facility] [address] [phone] Hakeem Chacko MBBS [address] [place] [address] Scheduled Procedures Name Priority Associated Diagnoses Date/Ti me INJECTION, EPIDURAL, TRANSFO RAMINAL APPROACH Cervical radiculitis RELEASE, CARPAL TUNNEL, ENDOSCOPIC Right carpal tunnel syndrome documented as of this encounter Goals Goal Patient Goal Type Associated Problems Recent Progress Patient-Stated? Author Health Maintenance Care Plan HP GENERAL PROBLEM 100%(10/29/19 10:17 AM CDT) No Mitra Kendall, CONFERENCE CONCIERGE Note: Update on 05/25/22 Barriers: Currently without [...] for health insurance by looking in to [employer] and talking with a FRW. Completed 3. I will look for a new job and will access resources that the [employer] offers. . Sarted new job 4. Continue [...] by household income. 2. I will contact [facility] to ask about medicare plans and if there are saving programs I qualify for by by calling [phone]. 3. I will see if I am eligible for unemployment after losing my job. I will call [phone] to ask for assistance with unemployment application. 4. I will apply for jobs. I will work with [facility] in finding a job (Empowerment.) 5. I will access [employer] and ask about financial resources (such as [...] I will continue working with therapist at [facility]. 2. I will establish with Psychiatry. Planning to schedule with Ronnie. 3. I will meet with community reinforcing iron worker helper Manjula Gresham. 4. I will look in to attending an IOP program. I will discuss with my [facility] therapist and number provided for [facility] Behavioral Access - [phone] to schedule assessment fr IOP program. 5. I will go to [facility] if I have concerning mental health symptoms. 6. I will access [facility] Crisis if needed by calling [phone]. 7. I will consider calling [facility] Adult Mental health intake at [phone]. documented as of this encounter Visit Diagnoses [...] documented as of this encounter Care Teams Rice Farmworker Relationship Specialty [place] [address] [place] [address] PCP - General Family Practice 07/11/14 [place] [address] [place] [address] Assigned PCP 12/16/11 Christy Campuzano PA-C [address] [place] [address]19182 Referring Physician Family Medicine 04/22/20 Hans Cannon MD [address] [place] [address] 097182 Resident Pulmonary Disease 04/22/20 Estella Hassan, [facility] [address] [place] [address] Pharmacist Pharmacist 05/26/20 Elaina Moreno MD [address] [place], [place] [phone] Cardiovascular & Thoracic Surgery 08/06/20 John Webb MD [address] [id number] Cardiovascular Disease 08/25/21 John Webb MD [address] [id number] Cardiovascular Disease 08/25/21 Estella Hassan, [facility] [address] [place] [address] Assigned MTM Pharmacist 12/09/21 Lindsay Carey OD [address] [facility] [place] [address] Ophthalmology 01/29/22 Richard Kam MD [address] [place] [address] [phone] Assigned Musculoskeletal Provider 08/14/22 [place] [address] [place] [address] [address] [address] Assigned Neuroscience Provider 01/01/23 12/03/24 Rosemarie Mcdowell, RN Transmission Supervisor Diabetes Education 03/17/23 Mitra Kendall, CONFERENCE CONCIERGE Lead Wire Stitcher Machine Primary Care - CC 12/12/23 Lizet Mann PA-C [address] [facility] [place] [address] Assigned Cancer Care Provider 01/04/24 Ravi Brownlee MD [address] [facility] [address] [place], [place] [address] Assigned Pulmonology Provider 01/04/24 Manuel Ahn OD [address] [place], [place] 166412 Speech Communication Professor 01/05/24 Thalia Charles [facility] [address] [place], [place] [phone] Pharmacist Pharmacy 01/26/24 Gaurav Valenzuela APRN AIRPLANE PILOT HELPER [address] [place], [place] [address] Assigned Sleep Provider 02/04/24 Debbie Mann MD [address] [facility] [address] [place] [address] Cardiovascular Disease 02/24/24 Hakeem Chacko MBBS [address] [place] [address] Assigned Rheumatology Provider 04/05/24 Debbie Mann MD [address] [facility] [address] [place] [address] Assigned Heart and Vascular Provider 05/06/24 Timothy Tejada MD [address] [facility] [place] [phone] Ophthalmology 05/29/24 Timothy Tejada MD [address] [facility] [place] [address] Assigned Surgical Provider 06/03/24 Elsie Roberts APRN [facility] [address] [address] [place] [address] Nurse Practitioner Pain Medicine 10/16/24 Cristy Morton MD [facility] [place] [address] Assigned Pediatric Specialist Provider 11/03/24 documented as of this encounter
--- OUTSIDE RECORDS SUMMARY | 2024-11-18 10:05 | XMS_ITS | Encounter Summary ---
Author Organization [facility] Address [address] [place] [address] Care Team Providers Care Cloth Checker Name Role Phone Va Glez MD Primary Care Provider [phone] Va Glez MD Unavailable Christy CampuzanoC Unavailable [phone] Hans Cannon MD Unavailable Estella Hassan [facility] Unavailable Josh Cordero MD, Madhuri Unavailable [phone] John Webb MD Unavailable John Webb MD Unavailable [phone] Estella Hassan [facility] Unavailable Lindsay Carey OD Unavailable Richard Kam MD Unavailable Gaby Vila DO Unavailable [phone] Rosemarie Mcdowell RN Unavailable [phone] Mitra Kendall SERVICING REP Unavailable [phone] Lizet Mann PA-C Unavailable Ravi Brownlee MD Unavailable [phone] Manuel Ahn OD Unavailable [phone] Thalia Charles [facility] Unavailable Gaurav Valenzuela DIRECTOR RADIATION ONCOLOGY HAMMERER HELPER Unavailable Debbie Mann MD Unavailable RosendonormaHakeem burch MB Unavailable Debbie Mann MD Unavailable Timothy Tejada MD Unavailable Timothy Tejada MD Unavailable Elsie Roberts DIRECTOR RADIATION ONCOLOGY HAMMERER HELPER Unavailable + Cristy Morton MD Unavailable [phone] Reason for Visit * Reason Comments Urgent Care Shortness of Breath Pt states his oxygen is okay. But just feels extremely tired. Pt has already used his inhaler and neb but still feels out of breath. Pt was dx with A-fib 2 wks ago Encounter Details Date Type Department Care Team (Late st Contact Info) Description 11/18/2024 10:05 AM CDT Office Visit [facility] [place] [address] [facility] [address] [place] [address] Iftikhar Funk MD [facility] [place] [address] Dyspnea on exertion (Primary Dx); Paroxysmal atrial fibrillation (H) Social History Tobacco Use Types Packs/Day [...] re latives? Once a week 09/27/2024 Attends [employer] Not on file 09/27 Active Member [...] Date Recorded PHQ-2 Score 6 11/01/2024 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 Gender Identity Not on file Sexual Orientation Not on file Occupation Industry Job Start Date Job End Date Not on file Not on file Not on file Not on file documented as of this encounter Last Filed Vital Signs Vital Sign Reading Time Taken Comments Blood Pressure 107/68 11/18/2024 11:03 AM CDT Pulse 97 11/18/2024 11:03 AM CDT Temperature 36.7 C (98.1 F) 11/18/2024 11:03 AM CDT Respiratory Rate 28 11/18/2024 11:03 AM CDT Oxygen Saturation 93% 11/18/2024 11:03 AM CDT Inhaled Oxygen Concentration - - Weight - - Height - - Body Mass Index - - documented in this encounter Progress Notes * Indra Yoder MA - 11/18/2024 10:05 AM CDT Urgent Care Clinic Visit Chief Complaint Patient presents with Urgent Care Shortness of Breath Pt states his oxygen is okay. But just feels extremely tired. Pt has already used his inhaler and neb but still feels out of breath. Pt was dx with A-fib 2 wks ago 11/18/2024 11:06 AM Additional Questions Roomed by Indra Accompanied by Self * Iftikhar Funk MD - 11/18/2024 10:05 AM CDT SUBJECTIVE: Chief complaint of shortness of breath. Has been trying rescue inhaler and nebulizer with modest benefit. Noting exertional dyspnea today. He had heart rate in the low 100s at this time. Denies palpitations. Has a ZioPatch on today and this is about due to be returned and analysed. Did have some sense of someone sitting on the chest for a while which reduced. Had a fair amount of nausea along with this episode as well. Treated this with ondansetron. Recently treated at [facility] for new onset atrial fibrillation with RVR. Echocardiogram on 11/05/2024 had normal LV systolic function and suggestion of increased diastolic filling pressures. No regional wall motion abnormalities. He was treated with IV diltiazem and converted to NSR while in hospital. The current feeling of dyspnea was worse prior to hospitalization -- not quite as bad today. Denies orthopnea, PND. Denies rapid heart rate or palpitations. Denies lightheadedness, cough, wheeze. ROS: The following systems have been completely reviewed and are negative except as noted in the HPI: CONSTITUTIONAL, CARDIOVASCULAR, PULMONARY, GASTROINTESTINAL, RENAL, and MUSCULOSKELETAL OBJECTIVE: BP 107/68 Pulse 97 Temp 98.1 ??F (36.7 ??C) (Tympanic) Resp 28 SpO2 93% GENERAL: healthy, alert and no distress HENT: ear canals and TM's normal and nose and mouth without ulcers or lesions NECK: no jugular venous distention RESP: clear to auscultation and percussion bilaterally; normal I:E ratio CV: regular rates and rhythm, normal S1 S2, no S3 or S4 and no murmur, click or rub - ABDOMEN: soft, nontender, without hepatosplenomegaly or masses and bowel sounds normal EXT: 1+ pitting edema of both ankles LAB: Results for orders placed or performed in visit on 11/18/24 Troponin T, High Sensitivity Status: Normal Result Value Ref Range Troponin T, High Sensitivity 20 <=22 ng/L Basic metabolic panel (Ca, Cl, CO2, Creat, Gluc, K, Na, BUN) Status: Abnormal Result Value Ref Range Sodium 142 135 - 145 mmol/L Potassium 4.6 3.4 - 5.3 mmol/L Chloride 100 94 - 109 mmol/L Carbon Dioxide (CO2) 33 (H) 20 - 32 mmol/L Anion Gap 9 3 - 14 mmol/L Urea Nitrogen 13 7 - 30 mg/dL Creatinine 0.90 0.66 - 1.25 mg/dL GFR Estimate >90 >60 mL/min/1.73m2 Calcium 9.8 8.5 - 10.1 mg/dL Glucose 221 (H) 70 - 99 mg/dL CBC with platelets Status: Normal Result Value Ref Range WBC Count 6.66 4.00 - 11.00 10e3/uL RBC Count 4.94 4.40 - 5.90 10e6/uL Hemoglobin 13.9 13.3 - 17.7 g/dL Hematocrit 41.2 40.0 - 53.0 % MCV 83.4 78.0 - 100.0 fL MCH 28.1 26.5 - 33.0 pg MCHC 33.7 31.5 - 36.5 g/dL RDW 13.1 10.0 - 15.0 % Platelet Count 208 150 - 450 10e3/uL Review of multiple troponin measurements over the past month shows values oscillating between 17 and 24 ng/L. NT-proBNP was 46 on 11/04/2024 when his subjective symptoms were similar in character but worse in intensity as he was being worked up in ER for paroxysmal atrial fib with RVR. ASSESSMENT/PLAN: ICD-10-CM 1. Dyspnea on exertion R06.09 EKG 12-lead complete w/read - Clinics Troponin T, High Sensitivity Basic metabolic panel (Ca, Cl, CO2, Creat, Gluc, K, Na, BUN) CBC with platelets Troponin T, High Sensitivity Basic metabolic panel (Ca, Cl, CO2, Creat, Gluc, K, Na, BUN) CBC with platelets Primary differential diagnosis to consider includes ischemic heart disease, congestive heart failure or transient cardiac arrhythmia. His troponin makes ischemia quite unlikely and his physical exam is not indicative of systemic volume overload or CHF. Known paroxysmal atrial fib that is not currently being specifically treated. Cardiology referral is pending. ZioPatch will be completed soon. Given current heart rate and blood pressure, it is best to hold on empiric therapy while awaiting ZioPatch results. The patient was given contact info for cardiology referral so that can be scheduled. 2. Paroxysmal atrial fibrillation (H) I48.0 Iftikhar Funk MD documented in this encounter Plan of Treatment Upcoming Encounters Date Type Department Care Team (Late st Contact Info) Description 12/11/2024 2:10 PM CDT Therapy Visit [address] [address] Shanta Cooper, PT 12/14/2024 11:20 AM CDT Office Visit [facility] [address] [place] [address] Lizet Mann PA-C [address] [place], [place] [address] [place] [address] 12/17/2024 2:10 PM CDT Office Visit [facility] [address] [facility] 4th [place] [phone] Richard Kam MD [address] [place] [address] 12/19/2024 8:20 AM CDT Therapy Visit [address] [place] [phone] Shanta Cooper, PT 12/24/2024 5:00 PM CDT Therapy Visit [address] [place] [phone] Pattie Casillas, PT 12/25/2024 10:20 AM CDT Therapy Visit [address] [address] Shanta Cooper, PT 01/03/2025 1:00 PM CDT Office Visit [address] [phone] Estella Hassan, [facility] [address] [place] [address] 01/03/2025 1:30 PM CDT Office Visit [address] [phone] [place] [address] [place] [address] 01/08/2025 1:15 PM CDT Office Visit [facility] [address] [facility] [address] [place] [address] Hakeem Chacko MBBS [address] [place] [address] Scheduled Procedures Name Priority Associated Diagnoses Date/Ti [...] for health insurance by looking in to [employer] and talking with a FRW. Completed 3. I will look for a new job and will access resources that the [employer] [facility] offers. . Sarted new job 4. [...] programs I qualify for by by calling [phone]. 3. I will see if I am eligible for unemployment after losing my job. I will call [phone] to ask for assistance with unemployment application. 4. I will apply for jobs. I will work with [employer] [facility] in finding a job (Empowerment.) 5. I will access [employer] and ask about financial resources (such as [...] I will continue working with therapist at [facility]. 2. I will establish with Psychiatry. Planning to schedule with Ronnie. 3. I will meet with community flying squad worker Manjula Gresham. 4. I will look in to attending an IOP program. I will discuss with my [facility] therapist and number provided for [facility] - [phone] to schedule assessment fr IOP program. 5. I will go to [facility] if I have concerning mental health symptoms. 6. I will access [facility] if needed by calling [phone]. 7. I will consider calling [facility] intake at [phone]. documented as of this encounter Procedures Procedure Name Priority Date/Time Associated Diagnosis Comments TROPONIN T, HIGH SENSITIVITY STAT 11/18/2024 12:09 PM CDT Dyspnea on exertion BASIC METABOLIC PANEL STAT 11/18/2024 12:09 PM CDT Dyspnea on exertion CBC WITH PLATELETS STAT 11/18/2024 12 :09 PM CDT Dyspnea on exertion EKG 12-LEAD COMPLETE W/READ - CLINICS Routine 11/18/2024 Dyspnea on exertion documented in this encounter Results * CBC with platelets (11/18/2024 12:09 PM CDT) WBC Count 6.66 4.00 - 11.00 10e3/uL 11/18/2024 12:11 PM CDT [facility] RBC Count 4.94 4.40 - 5.90 10e6/uL 11/18/2024 12:11 PM CDT [facility] Hemoglobin 13.9 13.3 - 17.7 g/dL 11/18/2024 12:11 PM CDT [facility] Hematocrit 41.2 40.0 - 53.0 % 11/18/2024 12:11 PM CDT [facility] MCV 83.4 78.0 - 100.0 fL 11/18/2024 12:11 PM CDT [facility] MCH 28.1 26.5 - 33.0 pg 11/18/2024 12:11 PM CDT [facility] MCHC 33.7 31.5 - 36.5 g/dL 11/18/2024 12:11 PM CDT [facility] RDW 13.1 10.0 - 15.0 % 11/18/2024 12:11 PM CDT [facility] Platelet Count 208 150 - 450 10e3/uL 11/18/2024 12:11 PM CDT [facility] Blood BLOOD SPECIMEN / Unknown Venipuncture / Unknown 11/18/2024 12:09 PM CDT 11/18/2024 12:09 PM CDT us Iftikhar Funk MD LAB - BLOOD ORDERABLES Final Result [facility] [place] [facility] [address] [phone] * (ABNORMAL) Basic metabolic panel (Ca, Cl, CO2, Creat, Gluc, K, Na, BUN) (11/18/2024 12:09 PM CDT) Sodium 142 135 - 145 mmol/L 11/18/2024 12:44 PM CDT [facility] Potassium 4.6 3.4 - 5.3 mmol/L 11/18/2024 12:44 PM CDT [facility] Chloride 100 94 - 109 mmol/L 11/18/2024 12:44 PM CDT [facility] Carbon Dioxide (CO2) 33(H) 20 - 32 mmol/L 11/18/2024 12:44 PM CDT [facility] Anion Gap 9 3 - 14 mmol/L 11/18/2024 12:44 PM CDT [facility] Urea Nitrogen 13 7 - 30 mg/dL 11/18/2024 12:44 PM CDT [facility] Creatinine 0.90 0.66 - 1.25 mg/dL 11/18/2024 12:44 PM CDT [facility] GFR Estimate >90 >60 mL/min/1.7 3m2 11/18/2024 12:44 PM CDT [facility] Calcium 9.8 8.5 - 10.1 mg/dL 11/18/2024 12:44 PM CDT [facility] Glucose 221(H) 70 - 99 mg/dL 11/18/2024 12:44 PM CDT [facility] Blood BLOOD SPECIMEN / Unknown Venipuncture / Unknown 11/18/2024 12:09 PM CDT 11/18/2024 12:09 PM CDT Iftikhar Funk MD LAB - BLOOD ORDERABLES Final Result [facility]ORATORY [facility] [place] [facility] [address] [facility] [address] [place] [address], [facility] * Troponin T, High Sensitivity (11/18/2024 12:09 PM CDT) [facility] Troponin T, High Sensitivity 20 <=22 ng/L 11/18/2024 1:58 PM CDT LABORATORY Comment: Either a High [...] BLOOD SPECIMEN / Unknown Venipuncture / Unknown 11/18/2024 12:09 PM CDT 11/18/2024 12:09 PM CDT Iftikhar Funk MD LAB - BLOOD ORDERABLES Final Result LABORATORY [facility] [address] Lab (1st floor, no room number) [place] [address], [facility] * EKG 12-lead complete w/read - Clinics (11/18/2024) Iftikhar Funk MD ECG ORDERABLES Final Result documented in this encounter Visit Diagnoses Diagnosis Dyspnea on exertion- Primary Other dyspnea and respiratory abnormality Paroxysmal atrial fibrillation (H) Atrial fibrillation documented in this encounter Additional Health Concerns [...] documented as of this encounter Care Teams Cloth Checker Relationship Specialty [place] [address] [place] [address] PCP - General Family Practice 07/11/14 [place] [address] [place] [address] Assigned PCP 12/16/11 Christy Campuzano PA-C [address] [place] [address] Referring Physician Family Medicine 04/22/20 Hans Cannon MD [address] [place] [address] Resident Pulmonary Disease 04/22/20 Estella Hassan, [facility] [address] [place] [address] Pharmacist Pharmacist 05/26/20 Elaina Moreno MD [address] [place] [address] Cardiovascular & Thoracic Surgery 08/06/20 John Webb MD [address] [place] [id number] Cardiovascular Disease 08/25/21 John Webb MD [address] [place] 125285 Cardiovascular Disease 08/25/21 Estella Hassan, [facility] [address] [place] [address] Assigned MTM Pharmacist 12/09/21 Lindsay Carey OD [address] [facility] [place] [address] Ophthalmology 01/29/22 Richard Kam MD [address] [place] [address] [id number] Assigned Musculoskeletal Provider 08/14/22 [place] [address] [address] [facility] [facility] Michelle [place], [place] [address] Assigned Neuroscience Provider 01/01/23 12/03/24 Rosemarie Mcdowell, RN Sanitation Superintendent Diabetes Education 03/17/23 Mitra Kendall, SERVICING REP Lead Beater And Pulper Feeder Primary Care - CC 12/12/23 Lizet Mann PA-C [address] [address] [place] [address] Assigned Cancer Care Provider 01/04/24 Ravi Brownlee MD [address] [place] [address] [address] [place] [address] Assigned Pulmonology Provider 01/04/24 Manuel Ahn OD [address] [place] [address] Lokie Driver 01/05/24 Thalia Charles [facility] [address] [place], [place] [phone] Pharmacist Pharmacy 01/26/24 Gaurav Valenzuela, DIRECTOR RADIATION ONCOLOGY HAMMERER HELPER [address] [place] [address] [address] [place] [address] Assigned Sleep Provider 02/04/24 Debbie Mann MD [address] [facility] [address] [place], [place] [phone] Cardiovascular Disease 02/24/24 Hakeem Chacko MBBS [address] [place], [place] [id number] Assigned Rheumatology Provider 04/05/24 Debbie Mann MD [address] [facility] [address] [place] [address] Assigned Heart and Vascular Provider 05/06/24 Timothy Tejada MD [address] [facility] [place] [phone] Ophthalmology 05/29/24 Timothy Tejada MD [address] [facility] [place] [phone] Assigned Surgical Provider 06/03/24 Elise Roberts APRN CNP [address] [facility] [address] [place] [address] Nurse Practitioner Pain Medicine 10/16/24 Cristy Morton MD [address] [place] [address] [place] ROMO [id number] Assigned Pediatric Specialist Provider 11/03/24 documented as of this encounter
--- OUTSIDE RECORDS SUMMARY | 2024-12-03 16:10 | XMS_ITS | Encounter Summary ---
Author Organization [place] Address [address] [place] [address] Care Team Providers Care Auto Damage Estimator Name Role Phone Va Glez MD Primary Care Provider Va Glez MD Unavailable Christy CampuzanoC Unavailable [phone] Hans Cannon MD Unavailable Estella Hassan [facility] Unavailable Josh Cordero MD, Madhuri Unavailable [phone] John Webb MD Unavailable John Webb MD Unavailable Estella Hassan [facility] Unavailable [phone] Lindsay Carey OD Unavailable [phone] Richard Kam MD Unavailable Gaby Vila DO Unavailable [phone] Rosemarie Mcdowell RN Unavailable Mitra Kendall HYPO SPLASHER Unavailable [phone] Lizet Mann PA-C Unavailable Ravi Brownlee MD Unavailable [phone] Manuel Ahn OD Unavailable [phone] Thalia Charles [facility] Unavailable [phone] Gaurav Valenzuela Ray BROADCAST CHIEF ENGINEER WEB MACHINE TENDER Unavailable Debbie Mann MD Unavailable [phone] Hakeem Chacko MB Unavailable Debbie Mann MD Unavailable Timothy Tejada MD Unavailable [phone] Timothy Tejada MD Unavailable [phone] Elsie Roberts BROADCAST CHIEF ENGINEER WEB MACHINE TENDER Unavailable + Cristy Morton MD Unavailable [phone] Reason for Visit * Rehab Therapy Physical Therapy (Routine: Next available opening) - Pending Review Specialty Diagnoses / Procedures Referred By Mireille gonzalez Referred To Contact Physical Therapy Diagnoses Right arm numbness [address] [address] Phone: tel: Referral ID Status Reason Start Date Expiration Date V isits Requested Visits Authorized [id number] Pending Review 12/03/2024 03/13/2025 10 10 Encounter Details Date Type Department Care Team (Latest Contact Info) Description 12/03/2024 4:10 PM CDT Therapy Visit [address] [place] [address] Trent Gresham MD [address] [place] [id number] Shanta Cooper, PT Right arm numbness Social History Tobacco Use Types Packs/Day Years [...] re latives? Once a week 09/27/2024 Attends [employer] Services Not on file 09/27 Active Member [...] Answer Date Recorded PHQ-2 Score 6 11/01/2024 [facility] - Occupational [...] an overnight group home, 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.) Yes 11/05/2024 Are you [...] on file Legal 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 CARDIOVASCULAR SURGICAL TECH Gender Identity Not on file Sexual Orientation Not on file Occupation Industry Job Start Date Job End Date Not on file Not on file Not on file Not on file documented as of this encounter Progress Notes * Shanta Cooper, PT - 12/03/2024 4:10 PM CDT PHYSICAL THERAPY EVALUATION Type of Visit: Evaluation Fall Risk Screen: Have you fallen 2 or more times in the past year?: Yes Have you fallen and had an injury in the past year?: No Is patient receiving Physical Therapy Services?: No Fall screen comments: tripped and fell, not worried about balance Subjective Condition type: Chronic (continuous duration >3 months) Cause of current episode: Repetitive Nature of treatment: Rehabilitative Functional ability: Moderate functional limitations Documented POC (choose all that apply): Measurable short and nursing home/discharge treatment goals related to physical and functional deficits. Briefly describe symptoms: Numbness and tingling in his R arm How did the symptoms start: Gradual onset Average pain/intensity last 24 hours: 7/10 Average pain/intensity past week: 7/10 Frequency of Symptoms: Frequently (51-75% of the time) Symptom impact on ADLs: Moderately Condition change since eval: N/A (first visit) General health reported by patient: Fair Presenting condition or subjective complaint: numbness and tingling in right arm and leg sometimes in left leg and foot was told that i have a narrowing in my spinal canal was supossed to have neck injection but [employer] wants p t first before they ll pay for it Date of onset: 11/21/24 (11/21/24) Relevant medical history: Arthritis; Asthma; Cold or hot arm or leg; Depression; Diabetes; Mental Illness Dates & types of surgery: [email or web address] [facility] Prior diagnostic imaging/testing results: MRI; EMG Prior therapy history for the same diagnosis, illness or injury: No Pt reports his N/T has been going on for about a year. Notes some days he cannot do anything because the pain is so bad. Notes he will have changes in feet sensation coldness as well as N/T in his R arm. Pt has been taking a lot of ibuprofen and Tylenol in attempt to alleviate. Notes he is able to fully move his arm although he will get flare up when he moves his arm too much. Pt was set to have injection and carpal tunnel surgery - needs PT first. 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 INTEGUMENTARY (edema, incisions): WNL POSTURE: Sitting Posture: Rounded shoulders, Forward head, Thoracic kyphosis increased CERVICAL ROM: Flexion: 50 deg ++ Extension: 20 deg + Right side bendin deg Left side bendin deg ++ Right rotation: 40 deg Left rotation: 40 deg SHOULDER AROM: Flexion: WNL Bilateral Abduction: min raymond R shoulder External rotation: min raymond R shoulder Internal rotation: min raymond R shoulder STRENGTH: Pain: - none + mild ++ moderate +++ severe Strength Scale: 0-5/5 Left Right Shoulder Flexion 5 4+ Shoulder Extension 5 5- Shoulder Abduction 5 4+ Shoulder Adduction 5 5 Shoulder Internal Rotation 5 5- Shoulder External Rotation 5 4+ Shoulder Horizontal Abduction 5 4+ Shoulder Horizontal Adduction 5 4+ Elbow Flexion 5 4+ Elbow Extension 5 4+ NEUROLOGIC ASSESSMENT: Myotomes: Shoulder abduction (C5): weaker on R Elbow flexion / Wrist extension (C6): weaker on R Elbow extension/ Wrist flexion (C7): weaker on R Finger flexion/educational resource coordinator (C8): weaker on R Finger abduction (T1): weaker on R Dermatomes: unremarkable Reflexes: unable to elicit reflexes bilaterally except biceps bilaterally HHD Bell Maker Strength: L 40#, R 25# JOINT MOBILITY: Lower cervical spine: mod stiffness CT junction: mod stiffness Thoracic spine: mod stiffness SPECIAL TESTS: Vertebral artery Screen: negative Spurlings: + R, mild symptoms during L Spurlings Upper limb tension test: positive R sided ulnar, median - unable to properly assess radial nerve ateval PALPATION: TTP over B upper trap, cervical paraspinal muscles, levator trap Assessment & Plan CLINICAL IMPRESSIONS Medical Diagnosis: Right arm numbness Treatment Diagnosis: Right arm numbness Impression/Assessment: Patient is a 64 year old male with R arm numbness complaints. The following significant findings have been identified: Pain, Decreased ROM/flexibility, Decreased joint mobility, Decreased strength, Impaired sensation, Impaired muscle performance, and Decreased activity toleran ce. These impairments interfere with their ability to perform self care tasks, work tasks, recreational activities, driving , household mobility, and community mobility as compared to previous level of function. Clinical Decision Making (Complexity): Clinical Presentation: Evolving/Changing Clinical Presentation Rationale: based on medical and personal factors listed in PT evaluation Clinical Decision Making (Complexity): Moderate complexity PLAN OF CARE Treatment Interventions: Modalities: Cryotherapy, Cupping, Hot Pack, Mechanical Traction Interventions: Manual Therapy, Neuromuscular Re-education, Therapeutic Activity, Therapeutic Exercise, Self-Care/Home Management Assisted Goals PT Goal 1 Goal Identifier: ADLS Goal Description: Pt will report ability to perform all ADLs required of them to return to PLOF Rationale: to maximize safety and independence with performance of ADLs and functional tasks Goal Progress: initiated Target Date: 01/31/25 PT Goal 2 Goal Identifier: N/T Goal Description: Pt will deny N/T symptoms for 1 week Rationale: to maximize safety and independence with performance of ADLs and functional tasks Goal Progress: initiated Target Date: 01/31/25 Frequency of Treatment: 1-2x/week for 4 weeks, 2x/month Duration of Treatment: 60 days Education Assessment: Learner/Method: Patient;Demonstration Education Comments: Pt educated on anatomy, diagnosis, prognosis, and plan of care. Risks and benefits of evaluation/treatment have been explained. Patient/Family/caregiver agrees with Plan of Care. Evaluation Time: PT Jasmin Kay Minutes ([id number]): 8 Signing Clinician: MOIZ Lyles [facility] OUTPATIENT PHYSICAL THERAPY PLAN OF TREATMENT FOR OUTPATIENT REHABILITATION Patient's Last Name, First Name, Peter Castro Date of : 1960 Provider's Name [facility] Onset Date: 11/21/24 (11/21/24) Start of Care Date: 12/03/24 Medical Diagnosis: Right arm numbness PT Treatment Diagnosis: Right arm numbness Plan of Treatment Frequency/Duration: 1-2x/week for 4 weeks, 2x/month/ 60 days Certification date from 12/03/24 to 01/31/25 See note for plan of treatment details and functional goals Shanta Cooper PT I CERTIFY THE NEED FOR THESE SERVICES FURNISHED UNDER THIS PLAN OF TREATMENT AND WHILE UNDER MY CARE (Physician attestation of this document indicates review and certification of the therapy plan). Referring Provider: Trent Gresham Initial Assessment See Epic Evaluation- Start of Care Date: 12/03/24 Cosigned by Trent Gresham MD at 12/05/2024 10:06 AM CDT Associated attestation - Trent Gresham MD - 12/05/2024 10:06 AM CDT Physician Attestation I agree with the information in this note. Trent Gresham MD documented in this encounter Plan of Treatment Upcoming Encounters Date Type Department Care Team (Late st Contact Info) Description 12/11/2024 2:10 PM CDT Therapy Visit [address] [phone] Shanta Cooper PT 12/14/2024 11:20 AM CDT Office Visit [place] [id number] [place] [phone] Lizet Mann PA-C [id number] [place] [address] 12/17/2024 2:10 PM CDT Office Visit [facility] [address] [place] [address] 4th [place] [phone] Richard Kam MD [address] [place] [address] 12/19/2024 8:20 AM CDT Therapy Visit [address] [address] Shanta Cooper, PT 12/24/2024 5:00 PM CDT Therapy Visit [address] [address] Pattie Casillas, PT 12/25/2024 10:20 AM CDT Therapy Visit [address] [address] Shanta Cooper, PT 01/03/2025 1:00 PM CDT Office Visit [address] [phone] Estella Hassan, [facility] [address] [place] [address] 01/03/2025 1:30 PM CDT Office Visit [address] [phone] Va Glez MD [address] [place] [id number] 01/08/2025 1:15 PM CDT Office Visit [facility] [address] [facility] [address] [place] [address] Hakeem Chacko MBBS [address] [place] [address] Scheduled Procedures Name Priority Associated Diagnoses Date/Ti [...] for health insurance by looking in to [employer] and talking with a FRW. Completed 3. I will look for a new job and will access resources that the [employer] center offers. . Sarted new job 4. [...] will work with FRW in applying for [facility], county assistance and to see if I qualify for Medicaid. I need to ask spouse what her income is as it goes by household income. 2. I will contact [facility] to ask about medicare plans and if there are saving programs I qualify for by by calling [phone]. 3. I will see if I am eligible for unemployment after losing my job. I will call [phone] to ask for assistance with unemployment application. 4. I will apply for jobs. I will work with [employer] in finding a job (Empowerment.) 5. I will access [employer] and ask about financial resources (such as [...] Ronnie. 3. I will meet with community dimension mill worker Manjula Gresham. 4. I will look in to attending an IOP program. I will discuss with my [place] mental Health therapist and number provided for [facility] - [phone] to schedule assessment fr IOP program. 5. I will go to [facility] if I have concerning mental health symptoms. 6. I will access [facility] if needed by calling [phone]. 7. I will consider calling [facility] Adult Mental health intake at [phone]. documented as of this encounter Visit Diagnoses Diagnosis Right arm numbness Disturbance of skin sensation documented in this encounter Additional Health Concerns [...] accurate information and submit it to the [facility]. 3. I will update [facility] Team at outreach. Health Maintenance Due or Overdue 12/16/2023 Patient expresses financial resource strain 12/13 Mental Health Symptoms Need Improvement 04/05/19 25 Assessment Noted Time PHQ-9 Depression Total Score: 18 025 2:39 PM CDT documented as of this encounter Care Teams Auto Damage Estimator Relationship Specialty [place] [address] [place] [address] PCP - General Family Practice 07/11/14 [place] [address] [place] [address] Assigned PCP 12/16/11 Christy Campuzano PA-C [address] [place] [id number] Referring Physician Family Medicine 04/22/20 Hans Cannon MD [address] [place] [address] Resident Pulmonary Disease 04/22/20 Estella Hassan, [facility] [address] [place] [address] Pharmacist Pharmacist 05/26/20 Elaina Moreno MD [address] [place] [address] Cardiovascular & Thoracic Surgery 08/06/20 John Webb MD [address] [id number] Cardiovascular Disease 08/25/21 John Webb MD [address] [id number] Cardiovascular Disease 08/25/21 Estella Hassan, [facility] [address] [place] [address] Assigned MTM Pharmacist 12/09/21 Lindsay Carey OD [address] [place] [address] [place] [address] Ophthalmology 01/29/22 Richard Kam MD [address] [place], [place] 874485 Assigned Musculoskeletal Provider 08/14/22 [place] [address] [facility] [address] [place], [place] 394217 Assigned Neuroscience Provider 01/01/23 12/03/24 Rosemarie Mcdowell, RN Value Advisor Diabetes Education 03/17/23 Mitra Kendall, HYPO SPLASHER Lead Telephone Engineer Primary Care - CC 12/12/23 Lizet Mann PA-C [address] [place] [address] Assigned Cancer Care Provider 01/04/24 Ravi Brownlee MD [address] [place] [address] [address] [place], [place] 278[address] Assigned Pulmonology Provider 01/04/24 Manuel Ahn OD [address] [place], [place] 944[address] Animal Control Specialist 01/05/24 Thalia Charles, [facility] [address] [place], [place] [phone] Pharmacist Pharmacy 01/26/24 Gaurav Valenzuela, NESSA WEB MACHINE TENDER [address] [address] [facility] [address] [place], [place] 7767[address] Assigned Sleep Provider 02/04/24 Debbie Mann MD [address] [facility] [address] [place] [address] Cardiovascular Disease 02/24/24 Hakeem Chacko MBBS [address] [place] [address] Assigned Rheumatology Provider 04/05/24 Debbie Mann MD [address] [facility] [address] [place] [address] Assigned Heart and Vascular Provider 05/06/24 Timothy Tejada MD [address] [facility] [place] [phone] Ophthalmology 05/29/24 Timothy Tejada MD [address] [place] [phone] Assigned Surgical Provider 06/03/24 Elsie Roberts APRN CNP [address] [facility] [address] [place] [address] Nurse Practitioner Pain Medicine 10/16/24 Cristy Morton MD [address] [place] [address] SHANKAR ROMO [address] Assigned Pediatric Specialist Provider 11/03/24 documented as of this encounter
--- OUTSIDE RECORDS SUMMARY | 2024-12-05 19:15 | XMS_ITS | Encounter Summary ---
Author Organization [facility] Address [address] [place] [address] Care Team Providers Care Enterprise Application Analyst Name Role Phone Va Glez MD Primary Care Provider Va Glez MD Unavailable Christy Campuzano PA-C Unavailable Hans Cannon MD Unavailable Estella Hassan [facility] Unavailable Josh Cordero MD, Elaina Unavailable [phone] John Webb MD Unavailable John Webb MD Unavailable [phone] Estella Hassan [facility] Unavailable [phone] Lindsay Carey OD Unavailable Richard Kam MD Unavailable Rosemarie Mcdowell RN Unavailable Mitra Kendall GLUING MACHINE OPERATOR AUTOMATIC Unavailable [phone] Lizet Mann PA-C Unavailable [phone] Ravi Brownlee MD Unavailable [phone] Manuel Ahn OD Unavailable Thalia Charles [facility] Unavailable Gaurav Valenzuela DRAFTER LANDSCAPE FURNACE AND WASH EQUIPMENT OPERATOR Unavailable [phone] Debbie Mann MD Unavailable [phone] Hakeem Chacko Unavailable Debbie Mann MD Unavailable [phone] Timothy Tejada MD Unavailable [phone] Timothy Tejada MD Unavailable [phone] Elsie Roberts DRAFTER LANDSCAPE FURNACE AND WASH EQUIPMENT OPERATOR Unavailable + Cristy Morton MD Unavailable [phone] Georgie Anguiano PA-C Unavailable [phone] Reason for Visit * Reason Comments Arm Pain Right arm numbness Headache ALEXANDER's since @3 pm, st ates never gets ALEXANDER's Breathing Problem SOB x1 day, patient was triaged on 12/01/2024 and was instructed to go to the ER, but patient never went Encounter Details Date Type Department Care Team (Late st Contact Info) Description 12/05/2024 7:15 PM CDT Office Visit [facility] [place] [id number] [place] [phone] Elisabet Moralez PA-C [address] [place], [place] [phone] Other headache syndrome (Primary Dx); Shortness of breath Social History Tobacco Use Types Packs/Day Years [...] re latives? 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 Gender Identity Not on file Sexual Orientation Not on file Occupation Industry Job Start Date Job End Date Not on file Not on file Not on file Not on file documented as of this encounter Last Filed Vital Signs Vital Sign Reading Time Taken Comments Blood Pressure 116/74 12/05/2024 7:27 PM CDT Pulse 98 12/05/2024 7:27 PM CDT Temperature 36.8 C (98.3 F) 12/05/2024 7:27 PM CDT Respiratory Rate 20 12/05/2024 7:27 PM CDT Oxygen Saturation 93% 12/05/2024 7:27 PM CDT Inhaled Oxygen Concentration - - Weight 126.6 kg (279 lb) 12/05/2024 7:27 PM CDT Height 175.3 cm (5' 9) 12/05/2024 7:27 PM CDT Body Mass Index 41.2 12/05/2024 7:27 PM CDT documented in this encounter Patient Instructions * Patient Instructions* Elisabet Moralez PA-C - 12/05/2024 7:15 PM CDT Moderate to severe ALEXANDER x 5 hours No known head injury or trauma SOB, O2 was 89% earlier today Paresthesias (has right arm numbness at baseline), but today also had left lower leg numbness Given limited diagnostic imaging and lab capabilities in the urgent care setting recommend further evaluation in the ED. Ddx: carotid artery stenosis, migraine ALEXANDER, CHF, intracranial abnormalities etc....... documented in this encounter Plan of Treatment Upcoming Encounters Date Type Department Care Team (Late st Contact Info) Description 12/11/2024 2:10 PM CDT Therapy Visit [place] [address] [address] [place] [phone] Shanta Cooper, PT 12/14/2024 11:20 AM CDT Office Visit [address] [phone] Lizet Mann PA-C [address] [place] [address] 12/17/2024 2:10 PM CDT Office Visit [facility] [address] 4[address] [place] [phone] Richard Kam MD [address] [place] [address] 12/19/2024 8:20 AM CDT Therapy Visit [place] [address] [place] [phone] Shanta Cooper, PT 12/24/2024 5:00 PM CDT Therapy Visit [address] [place] [address] Pattie Casillas, PT 12/25/2024 10:20 AM CDT Therapy Visit [address] [place] [address] Shanta Cooper, PT 01/03/2025 1:00 PM CDT Office Visit [facility] [address] [place] [phone] Estella Hassan, [facility] [address] [place] [address] 01/03/2025 1:30 PM CDT Office Visit [facility] [address] [place] [address] [place] [address] [place], [place] [phone] 01/08/2025 1:15 PM CDT Office Visit [facility] [address] [facility] 200 [place] [phone] Hakeem Chacko MBBS [address] [place], [place] [phone] Scheduled Procedures Name Priority Associated Diagnoses Date/Ti [...] job and will access resources that the [employer] [facility] offers. . Sarted new job 4. [...] by household income. 2. I will contact [employer] [facility] to ask about medicare plans and if there are saving programs I qualify for by by calling [phone]. 3. I will see if I am eligible for unemployment after losing my job. I will call [phone] to ask for assistance with unemployment application. 4. I will apply for jobs. I will work with [employer] in finding a job (Empowerment.) 5. I will access [employer] and ask about financial resources (such as getting gas card.) Improve management of mental health symptoms and establish with mental health/psychosocia l supports Care Plan Mental Health Symptoms Need Improvement 70%( 5 10:47 AM CDT) Mitra Borja, SILVER Note: Updated on 08/30/24 Barriers: I struggle with having anxiety.My children won;t talk with me due to my mental health concerns Strengths: I am accessing support that is available to me. Patient expressed understanding of goal: Yes Action steps to achieve this goal: 1. I will continue working with therapist at [place] [facility]. 2. I will establish with Psychiatry. Planning to schedule with Ronnie. 3. I will meet with [facility] hired worker Manjula Gresham. 4. I will look in to attending an IOP program. I will discuss with my [place] [facility] therapist and number provided for [facility] - [phone] to schedule assessment fr IOP program. 5. I will go to [facility] if I have concerning mental health symptoms. 6. I will access [facility] if needed by calling [phone]. 7. I will consider calling [facility] Adult Mental health intake at [phone]. documented as of this encounter Visit Diagnoses Diagnosis Other headache syndrome- Primary Shortness of breath documented in this encounter [...] documented as of this encounter Care Teams Enterprise Application Analyst Relationship Specialty [place] [address] [place] [address] PCP - General Family Practice 07/11/14 [place] [address] [place] [address] Assigned PCP 12/16/11 Christy Campuzano PA-C [address] [place] [phone] Referring Physician Family Medicine 04/22/20 Hans Cannon MD [address] [place] [address] [phone] Resident Pulmonary Disease 04/22/20 Estella Hassan, [facility] [address] [place], [place] [address] Pharmacist Pharmacist 05/26/20 Elaina Moreno MD [address] [place], [place] [phone] Cardiovascular & Thoracic Surgery 08/06/20 John Webb MD [address] [address] Cardiovascular Disease 08/25/21 John Webb MD [address] [facility] [address] Cardiovascular Disease 08/25/21 Estella Hassan, [facility] [address] [place] [address] Assigned MTM Pharmacist 12/09/21 Lindsay Carey, OD [address] [facility] [place] [address] Ophthalmology 01/29/22 Richard Kam MD [address] [place] [address] Assigned Musculoskeletal Provider 08/14/22 Rosemarie Mcdowell RN Armature Repairer Diabetes Education 03/17/23 Mitra Kendall, GLUING MACHINE OPERATOR AUTOMATIC Lead Latex Dipper Primary Care - CC 12/12/23 Lizet Mann PA-C [address] [place] [address] Assigned Cancer Care Provider 01/04/24 Ravi Brownlee MD [address] [place] [address] 276 [place] [address] Assigned Pulmonology Provider 01/04/24 Manuel Ahn, OD [address] [facility] [place] [address] Operations Manager 01/05/24 Thalia Charles, [facility] [address] [place] [address] Pharmacist Pharmacy 01/26/24 Gaurav Valenzuela APRN FURNACE AND WASH EQUIPMENT OPERATOR [address] [facility] 106 [place] [address] Assigned Sleep Provider 02/04/24 Debbie Mann MD [address] [facility] 200 [place], [place] [phone] Cardiovascular Disease 02/24/24 Hakeem Chacko MBBS [address] [place], [place] [phone] Assigned Rheumatology Provider 04/05/24 Debbie Mann MD [address] [facility] 200 [place] [address] Assigned Heart and Vascular Provider 05/06/24 Timothy Tejada MD [address] [place] [phone] Ophthalmology 05/29/24 Timothy Tejada MD [address] [place] [phone] Assigned Surgical Provider 06/03/24 Elsie Roberts APRN FURNACE AND WASH EQUIPMENT OPERATOR [address] [facility] 101 [place], [place] [phone] Nurse Practitioner Pain Medicine 10/16/24 Cristy [place] MD [address] [place] [address] [address] [place] [address] Assigned Pediatric Specialist Provider 11/03/24 Georgie Anguiano PA-C [address] [address] Assigned Neuroscience Provider 12/04/24 documented as of this encounter
--- OUTSIDE RECORDS SUMMARY | 2024-12-05 23:39 | XMS_ITS | Clinical Summary ---
Author Organization [facility] Address [address] [place] [address] Care Team Providers Care Canal Structure Operator Name Role Phone Va Glez MD Primary Care Provider Nichol Acevedo MD Unavailable [phone] Allergies No known active allergies Medications Blood-Glucose Meter (ACCU-CHEK GUIDE ME GLUCOSE MTR) meter USE TO TEST BLOOD SUGAR 1 TIMES DAILY OR DIRECTED. Active metFORMIN ER (GLUCOPHAGE XR) 500 mg oral extended release tablet 24 HR TAKE 4 TABLETS BY MOUTH DAILY WITH DINNER 03/08/2024 Active glipiZIDE (GLUCOTROL XL) 10 mg oral extended release tablet 24 HR Take 2 tablets (20 mg) by mouth once daily. Active pioglitazone (ACTOS) 15 mg oral tablet Take 1 tablet (15 mg) by mouth once daily. Active atorvastatin (LIPITOR) 40 mg oral tablet Take 1 tablet (40 mg) by mouth. 12/23/2023 Active gabapentin (NEURONTIN) 300 mg oral capsule Take by mouth. 07/19/2024 Active ergocalciferol (VITAMIN D2) 1,250 mcg (50,000 unit) oral capsule Take 1 capsule (50,000 Units) by mouth. Active DULoxetine (CYMBALTA) 30 mg oral delayed release capsule Take 1 capsule (30 mg) by mouth once daily. 90 capsule 1 09/05/2024 Active Active Problems No known active problems Encounters Date Type Department Care Team Description 09/05/2024 1:00 PM CDT Office Visit [facility] [address] [place] [address] Nichol Acevedo MD Polyneuropathy (Primary Dx); Bilateral carpal tunnel syndrome from Last 3 Months Social History Tobacco Use Types Packs/Day Years Used Date Smoking Tobacco: Former Cigarettes Smokeless Tobacco: Never Tobacco Cessation:Counseling Given: Not Answered Sex and Gender Information Value Date Recorded Sex Assigned at Not on file Legal Sex Male 2:21 PM CDT Gender Identity Not on file Sexual Orientation Not on file Plan of Treatment Health Maintenance Due Date Last Done Comments AAA Ultrasound Screening 1958 Colonoscopy 1960 Eye Exam 1958 Hepatitis C Screening 1960 Medicare Wellness Visit 1958 Depression Assessment (PHQ-2) 06/15/1959 Yearly Review of HCD 2008 COVID-19 Vaccine ( season) 2024 12/23/2023, 06/13/2023, 12/25/2021, Additional history exists Influenza Vaccine (#1) 2024 , 01/08/2023, 11/07/2021, Additional history exists HgbA1C 03/30/2025 09/27/2024, 04/0 10/2024, 03/28/2024 Microalbumin Q12 Month 11/15/2025 11/15/2024, 2023 Creatinine 11/18/2025 11/18/2024, 09/0 06/2024, 11/05/2024, Additional history exists Adult Tetanus Booster 01/03/2028 01/02/2018 , 11/23/1999, 07/24/1997 Zoster Vaccine Completed 10/11/2021, 08/08/2021 RSV Vaccines Completed 01/25/2023 Pneumococcal 50+ Years Completed 05/01/2023, 2016 Meningococcal B Vaccine Aged Out No l onger eligible based on patient's age to complete this topic Insurance UHC MEDICARE ADVANTAGE Care Teams Canal Structure Operator Relationship Specialty Start Date End Date Va Glez MD PCP - General Family Medicine - 05/28/24 Nichol Acevedo MD [address] [facility] [address] [place] [address] Neurology 06/05/24
--- OUTSIDE RECORDS SUMMARY | 2024-12-05 23:39 | XMS_ITS | Clinical Summary ---
Author Organization [facility] Address [address] [place] [address] Care Team Providers Care Propeller Driven Airplane Mechanic Name Role Phone Pcp, No Primary Care Provider Unavailabl e Allergies No known active allergies Medications fluticasone-salm eterol (ADVAIR DISKUS) 250-50 mcg/Dose diskus inhaler Inhale [...] Active Problems No known active problems Immunizations Immunization Administration Dates Next Due Td (Age >=7 Years) 11/23/1999 Social History Tobacco Use Types Packs/Day Years Used Date Smoking Tobacco: Never Smokeless Tobacco: Never Alcohol Use Standard Drinks/Week Comments Not Asked 0 (1 standard drink = 0.6 oz pur e alcohol) Sex and Gender Information Value Date Recorded Sex Assigned at Not on file Legal Sex Male 8:00 AM QUALITY RN Gender Identity Not on file Sexual Orientation Not on file Obstetrics History Last Filed Vital Signs Vital Sign Reading Time Taken Comments Blood Pressure 126/82 03/10/2013 11:27 AM QUALITY RN Pulse 77 03/10/2013 11:27 AM QUALITY RN Temperature 36.8 C (98.2 F) 03/10/2013 11:27 AM QUALITY RN Respiratory Rate 14 03/10/2013 11:2 7 AM QUALITY RN Oxygen Saturation 96% 03/10/2013 11: 27 AM QUALITY RN Inhaled Oxygen Concentration - - Weight 119.6 kg (263 lb 9.6 oz) 08/22/2012 3:55 PM CDT Height - - Body Mass Index - - Plan of Treatment Health Maintenance Due Date Last Done Comments Depression screening for age 12+ 1970 BMI (ht and wt on same day) for age 18+ 1976 Hepatitis C screening for ag e 18-79 1976 Colonoscopy through age 75 06/15/2003 Lipids for age 45-75 06/15/2003 Pneumococcal series for age 50+ (1 of 1 - PCV) 2008 Zoster (shingles) series for age 50+ (1 of 2) 2008 Tetanus booster 11/22/2009 11/23/1999 COVID-19 vaccine series ( - 2023-25 season) 2024 Influenza Vaccine (#1) 2024 RSV vaccine for adults or (1 - 1-dose 75+ series) 2033 Hepatitis B series for 19+ Aged Out N o longer eligible based on patient's age to [place] [address] [facility] Care Teams Propeller Driven Airplane Mechanic Relationship Specialty Start Date End Date Pcp, No . PCP - General 12/16/10
[2024-12-05 23:45] VITALS: BP 114/74; PULSE 85; RESP 16; TEMP 36.9; O2SAT 98; BMI 39.9
--- NOTE | 2024-12-05 23:47 | ED.SOB ---
HPI - SOB/Dyspnea General Time Seen by Provider: 23:47 Date Seen: 12/05/24 Chief Complaint: Shortness of Breath/Dyspnea Stated Complaint: difficulty breathing/headache Time Seen by Provider: 12/05/24 23:47 Source: patient, RN notes reviewed and old records reviewed Mode of arrival: ambulatory Limitations: no limitations History of Present Illness HPI Narrative: 64-year-old male with history of COPD comes in with shortness of breath and headache. Patient notes earlier today he had shortness of breath along with frontal headache that localized to back of the head, it is almost resolved and patient is not take any medication for this. No history of prior similar headaches, happen while he was being active. No cough, has had some intermittent diarrhea over the last week. No chest pain, no lower extremity swelling. Related Data Home Medications ?Medication ?Instructions ?Recorded ?Confirmed atorvastatin 40 mg tablet 40 mg PO QPM 12/11/23 12/05/24 escitalopram oxalate 10 mg tablet 10 mg PO DAILY 12/11/23 12/05/24 glipizide 10 mg tablet, extended 10 mg PO DAILY 12/11/23 12/05/24 release 24 hr metformin 500 mg tablet,extended 1,000 mg PO BID 12/11/23 12/05/24 release 24 hr ondansetron HCl 4 mg tablet 4 mg PO Q8H PRN 01/18/24 01/18/24 Previous Rx's ?Medication ?Instructions ?Recorded ipratropium 0.5 mg-albuterol 3 mg 3 ml inhalation Q6-8H PRN #30 mL 12/11/23 (2.5 mg base)/3 mL nebulization soln albuterol sulfate 90 mcg/actuation 2 puff inhalation QID PRN 01/01/24 aerosol inhaler shortness of breath or wheezing #8.5 grams Allergies Allergy/AdvReac Type Severity Reaction Status Date / Time No Known Drug Allergies Allergy Verified 01/18/24 21:28 [facility] Medical History (Updated 12/06/24 @ 00:49 by Artem Connolly RN) COPD (chronic obstructive pulmonary disease) ?J44.9 - Chronic obstructive pulmonary disease, unspecified (ICD-10) Moderate persistent asthma without complication ?J45.40 - Moderate persistent asthma, uncomplicated (ICD-10) Morbid obesity ?E66.01 - Morbid (severe) obesity due to excess calories (ICD-10) Major depressive disorder, recurrent episode, moderate ?F33.1 - Major depressive disorder, recurrent, moderate (ICD-10) Type 2 diabetes mellitus with hyperglycemia, without long-term current use of insulin ?E11.65 - Type 2 diabetes mellitus with hyperglycemia (ICD-10) Thoracic aortic aneurysm without rupture ?I71.20 - Thoracic aortic aneurysm, without rupture, unspecified (ICD-10) 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 (ICD-10) LUZ (generalized anxiety disorder) ?F41.1 - Generalized anxiety disorder (ICD-10) Esophageal reflux ?K21.9 - Gastro-esophageal reflux disease without esophagitis (ICD-10) Gallstones ?K80.20 - Calculus of gallbladder without cholecystitis without obstruction (ICD-10) Diverticulosis ?K57.90 - Diverticulosis of intestine, part unspecified, without perforation or abscess without bleeding (ICD-10) Diabetic polyneuropathy associated with type 2 diabetes mellitus ?E11.42 - Type 2 diabetes mellitus with diabetic polyneuropathy (ICD-10) Cervical spinal stenosis ?M48.02 - Spinal stenosis, cervical region (ICD-10) Spondylolisthesis of cervical region ?M43.12 - Spondylolisthesis, cervical region (ICD-10) DDD (degenerative disc disease) Right carpal tunnel syndrome ?G56.01 - Carpal tunnel syndrome, right upper limb (ICD-10) Radicular pain in right arm ?M79.2 - Neuralgia and neuritis, unspecified (ICD-10) Primary osteoarthritis of right knee ?M17.11 - Unilateral primary osteoarthritis, right knee (ICD-10) Bilateral cellulitis of lower leg ?L03.116 - Cellulitis of left lower limb (ICD-10) ?L03.115 - Cellulitis of right lower limb (ICD-10) Atrial fibrillation with rapid ventricular response ?I48.91 - Unspecified atrial fibrillation (ICD-10) Cervical radiculitis ?M54.12 - Radiculopathy, cervical region (ICD-10) Surgical History History of toe surgery ?Z98.890 - Other specified postprocedural states (ICD-10) Social History Smoking Status: Former smoker Do you use any of these nicotine containing products: None Second hand tobacco smoke exposure: No How often do you have a drink containing alcohol: never How often do you have six or more drinks on one occasion: Never AUDIT-C Alcohol total score: 0 Non-prescribed substance use: denies use service: No Exam Narrative: Exam Narrative: General: Well-developed and well-nourished, no acute distress Head: Atraumatic and normocephalic Eyes: Pupils are equal reactive, extraocular motions intact, conjunctiva clear ENT: External nose and ears are normal, posterior pharynx without erythema or exudate Neck: No midline cervical tenderness, full spontaneous range of motion the neck, trachea midline, no adenopathy Heart: Regular rate and rhythm no murmurs or thrills Lungs: Clear to auscultation bilaterally without wheezes or crackles Abdomen: Soft, nontender, nondistended with active bowel sounds Musculoskeletal: No tenderness, deformity, or edema Neurologic: Awake, alert, and oriented x3, no gross focal neurologic deficits, cranial nerves intact as tested Psych: Mood and affect are appropriate Skin: No rashes Const: Vital Signs, click to edit/add: Vital Signs - 24 hr 12/05/24 23:45 Temperature 98.4 F Pulse Rate [Pulse Oximeter] 85 Respiratory Rate 16 Blood Pressure [Ri ght Upper Arm] 114/74 Pulse Oximetry 98 Oxygen Delivery Me thod Room Air Course Course ED Course: Reviewed prior emergency department visit from January 2024 when patient was seen with anxiety and right upper extremity paresthesia, prior visit in November 2023 for COPD exacerbation as well. Patient presents today with headache, this happened this afternoon and was frontal, no more posterior in almost resolved, did not take any medication for this. No fall or head injury, no nausea vomiting, no history of prior similar headaches and so head CT is ordered to evaluate for intracranial hemorrhage or other pathology. Patient also noted some shortness of breath earlier today, used his inhaler nebulizer with some improvement, says his oxygen saturation at that time was 88%. No accompanying chest pain, cough, lower extremity swelling. No palpitations, no fevers or chills. Decreased appetite. On exam, vital is stable with no hypoxia, no respiratory distress, lungs are clear. Chest x-ray ordered. Did consider acute coronary syndrome but patient had no chest pain, nausea, vomiting. He has right arm paresthesias which have been going on for some time and for which she was previously seen a year ago in the emergency department. EKG independently interpreted by me performed at 12:08 a.m. demonstrates sinus rhythm rate 84, left axis deviation with pulmonary disease pattern, QTC 420, WV 120, no acute ischemic changes. No change from prior of January 2024. Reevaluation(s) Time of Reevaluation #1: 00:31 Reevaluation #1: CT scan of the head independently interpreted by me negative for acute findings. Chest x-ray and panel interpreted by me negative for acute findings. Labs independently interpreted by me with negative respiratory panel, troponin 0.01 and given the shortness of breath occurred several hours prior to coming the emergency department without reports of chest pain, this does not need to be repeated. Time of Reevaluation #2: 00:39 Reevaluation #2: CXR: Findings/Impression: No acute cardiopulmonary process detected. CT head impression: No acute abnormality appreciated. Time of Reevaluation #3: 00:50 Reevaluation #3: Labs in the middle interpreted by me with normal BNP. No chest pain, no hypoxia, no tachycardia, pulmonary embolism unlikely in no CT PE study or D-dimer ordered. Patient is stable for discharge with outpatient follow-up, symptom management Vital Signs Vital signs: Initial Vital Signs Temperature 98.4 F 12/05/24 23:45 Temperature Source Temporal Artery Scan 12/05/24 23:45 Pulse Rate 85 12/05/24 23:45 Respiratory Rate 16 12/05/24 23:45 Blood Pressure 114/74 12/05/24 23:45 Blood Pressure Mean 87 12/05/24 23:45 Blood Pressure Position Sitting 12/05/24 23:45 Pulse Oximetry 98 12/05/24 23:45 Oxygen Delivery Method Room Air 12/05/24 23:45 Vital Signs Temperature 98.4 F 12/05/24 23:45 Pulse Rate 85 12/05/24 23:45 Respiratory Rate 16 12/05/24 23:45 Blood Pressure 114/74 12/05/24 23:45 Pulse Oximetry 98 12/05/24 23:45 Oxygen Delivery Method Room Air 12/05/24 23:45 Temperature 98.4 F 12/05/24 23:45 Pulse Rate 85 12/05/24 23:45 Respiratory Rate 16 12/05/24 23:45 Blood Pressure 114/74 12/05/24 23:45 Pulse Oximetry 98 12/05/24 23:45 Oxygen Delivery Method Room Air 12/05/24 23:45 MDM - SOB/Dyspnea Lab Data Labs: Lab Results 12/05/24 12/06/24 Range/Units 23:45 00:05 NT-Pro-B Natriuret Pep < 20 (See Note) pg/mL SARS-CoV-2 (PCR) Negative SARS-CoV-2 (Negative) Influenza Type A (PCR) Negative PCR FLU A (Negative) Influenza Type B (PCR) Negative PCR FLU B (Negative) RSV (PCR) Negative PCR RSV (Negative) POC Troponin I 0.01 (0.01-0.04) ng/ml Discharge Plan Discharge Clinical Impression: Headache, COPD (chronic obstructive pulmonary disease) Patient Disposition: Home, Self-Care Condition: Stable Instructions: COPD (Chronic Obstructive Pulmonary Disease) (ED), Acute Headache (DC) Additional Instructions: Take Tylenol and ibuprofen as needed for head pain Start prednisone today as prescribed Continue inhaler nebulizer treatments as needed Activity Level: Activity as Tolerated Discharge Diet: Regular Prescriptions: No Action atorvastatin 40 mg tablet 40 mg PO QPM glipizide 10 mg tablet extended release 24hr 10 mg PO DAILY metformin 500 mg tablet extended release 24 hr 1,000 mg PO BID escitalopram oxalate 10 mg tablet 10 mg PO DAILY ipratropium-albuterol 0.5 mg-3 mg(2.5 mg base)/3 mL solution for nebulization 3 ml inhalation Q6-8H PRNQty: 30 0RF albuterol sulfate 90 mcg/actuation HFA aerosol inhaler 2 puff inhalation QID PRN (Reason: shortness of breath or wheezing) Qty: 8.5 1RF ondansetron HCl 4 mg tablet 4 mg PO Q8H PRN Follow Up/Referrals: Va Glez [Primary Care Provider, Family Practice] Stand Alone Forms: [employer] Info Instructions
--- NOTE | 2024-12-05 23:58 | CRLHL7_ITS ---
For Patients: As a result of the Century Cures Act, medical imaging exams and procedure reports are released immediately into your electronic medical record. You may view this report before your referring provider. If you have questions, please contact your health care provider. Indication: Headache, worsening Technique: Noncontrast CT through the head with multiplanar reformats Comparison: CT head performed 01/31/2024 Findings: Brain: No acute hemorrhage. No acute infarct. No significant mass effect or midline shift. No gross evidence of a mass lesion or cerebral edema. Left frontal parenchymal calcifications again demonstrated. Mild chronic white matter disease. Ventricles: No acute abnormality appreciated. Orbits, sinuses, mastoids: No acute abnormality appreciated. Mild sinus disease. Calvarium and soft tissues: No acute abnormality appreciated. Impression: No acute abnormality appreciated. Please note that all CT scans at this facility use dose modulation, iterative reconstruction, and/or weight-based dosing when appropriate to reduce radiation dose to as low as reasonably achievable. Dictated by Ike Howard MD @ 12/06/2024 12:38:33 AM (Electronically Signed)
--- NOTE | 2024-12-05 23:58 | CRLHL7_ITS ---
For Patients: As a result of the Century Cures Act, medical imaging exams and procedure reports are released immediately into your electronic medical record. You may view this report before your referring provider. If you have questions, please contact your health care provider. Indication: Dyspnea Technique: Two views of the chest Comparison: Chest radiograph performed 01/31/2024 Findings/Impression: No acute cardiopulmonary process detected. Dictated by Ike Howard MD @ 12/06/2024 12:39:07 AM (Electronically Signed)
--- OUTSIDE RECORDS SUMMARY | 2024-12-06 00:20 | XMS_ITS | Encounter Summary ---
Author Organization [facility] Address [address] [place] [address] Care Team Providers Care Support Worker Name Role Phone Va Glez MD Primary Care Provider [phone] Va Glez MD Unavailable Christy CampuzanoC Unavailable [phone] Hans Cannon MD Unavailable [facility] Unavailable Josh Cordero MD, Madhuri Unavailable [phone] John Webb MD Unavailable [phone] John Webb MD Unavailable [phone] [facility] Unavailable Lindsay Carey OD Unavailable Richard Kam MD Unavailable Gaby Vila DO Unavailable Rosemarie Mcdowell RN Unavailable Mitra Kendall TECHNOLOGY METHODOLOGY CONSULTANT Unavailable [phone] Lizet Mann PA-C Unavailable Ravi Brownlee MD Unavailable Manuel Ahn OD Unavailable [facility] Unavailable [phone] Gaurav Bell [address] PACKER OPERATOR Unavailable [phone] Debbie Mann MD Unavailable Hakeem Chacko MB Unavailable Debbie Mann MD Unavailable Timothy Tejada MD Unavailable Timothy Tejada MD Unavailable [phone] PACKER OPERATOR Unavailable + Cristy Morton MD Unavailable [phone] Georgie Anguiano PA-C Unavailable [phone] Encounter Details Date Type Department Care Team (Late st Contact Info) Description 10/12/2024 [facility] Medical Advice [facility] [place] [address] [facility] [address] [place] [address] [place] [address] [place] [address] Social History Tobacco Use Types Packs/Day Years [...] re latives? 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 Gender Identity Not on file Sexual Orientation Not on file Occupation Industry Job Start Date Job End Date Not on file Not on file Not on file Not on file documented as of this encounter Plan of Treatment Upcoming Encounters Date Type Department Care Team (Late st Contact Info) Description 12/11/2024 2:10 PM CDT Therapy Visit [place] [address] [place] [phone] Shanta Cooper, PT 12/14/2024 11:20 AM CDT Office Visit [facility] [address] [place] [address] [place] [address] Lizet Mann PA-C [address] [place] [address] 12/17/2024 2:10 PM CDT Office Visit [facility] [address] [place] [phone] Richard Kam MD [address] [place] [address] 12/19/2024 8:20 AM CDT Therapy Visit [place] [address] [place] [phone] Shanta Cooper, PT 12/24/2024 5:00 PM CDT Therapy Visit [place] [address] [place] [phone] Pattie Casillas, PT 12/25/2024 10:20 AM CDT Therapy Visit [facility] [place] [address] [place] [phone] Shanta Cooper, MOIZ 01/03/2025 1:00 PM CDT Office Visit [facility] [address] [place] [phone] Est[facility], [facility] [address] [place] [address] 01/03/2025 1:30 PM CDT Office Visit [facility] [address] [place] [phone] [place] [address] [place], [place] [phone] 01/08/2025 1:15 PM CDT Office Visit [facility] [address] [facility] [address] [place] [address] Hakeem Chacko MBBS [address] [place], [place] [phone] Scheduled Procedures Name Priority Associated Diagnoses Date/Ti me INJECTION, EPIDURAL, TRANSFO RAMINAL APPROACH Cervical radiculitis RELEASE, CARPAL TUNNEL, ENDOSCOPIC Right carpal tunnel syndrome documented as of this encounter Goals Goal Patient Goal Type Associated Problems Recent Progress Patient-Stated? Author Health Maintenance Care Plan HP GENERAL PROBLEM 100%(10/29/19 10:17 AM CDT) No Mitra Kendall, TECHNOLOGY METHODOLOGY CONSULTANT Note: Update on 05/25/22 Barriers: Currently [...] for health insurance by looking in to [employer] and talking with a FRW. Completed 3. I will look for a new job and will access resources that the [employer] offers. . Sarted new job 4. Continue [...] by household income. 2. I will contact [facility] to ask about medicare plans and if there are saving programs I qualify for by by calling [phone]. 3. I will see if I am eligible for unemployment after losing my job. I will call [phone] to ask for assistance with unemployment application. 4. I will apply for jobs. I will work with [employer] in finding a job ([employer].) 5. I will access [employer] and ask about financial resources (such as [...] I will continue working with therapist at [facility]. 2. I will establish with Psychiatry. Planning to schedule with Ronnie. 3. I will meet with community ironworker apprentice Manjula Gresham. 4. I will look in to attending an IOP program. I will discuss with my [facility] therapist and number provided for [facility] - [phone] to schedule assessment fr IOP program. 5. I will go to [facility] if I have concerning mental health symptoms. 6. I will access [facility] if needed by calling [phone]. 7. I will consider calling [facility] Adult Mental health intake at [phone]. documented as of this encounter Visit Diagnoses [...] Last Indicated Resolved Time Rule Out COVID-19 10/17/2024 10/17/2024 10/17/2024 11:23 PM CDT Rule Out C-difficile 11/04/2024 11/04/2024 025 1:55 AM CDT Assessment Noted Time PHQ-9 Depression Total Score: 7 09/28/19 11:01 AM CDT documented as of this encounter Care Teams Support Worker Relationship Specialty [place] [address] [place] [address] PCP - General Family Practice 07/11/14 [place] [address] [place] [address] Assigned PCP 12/16/11 Christy Campuzano PA-C [address] [place] [address] 8[address]272 Referring Physician Family Medicine 04/22/20 Hans Cannon MD [address] [place] [phone] Resident Pulmonary Disease 04/22/20 Est[facility], [facility] [address] [place] [address] Pharmacist Pharmacist 05/26/20 Elaina Moreno MD [address] [place] [address] Cardiovascular & Thoracic Surgery 08/06/20 John Webb MD [address] [place] [address] Cardiovascular Disease 08/25/21 John Webb MD [address] [place] [address] Cardiovascular Disease 08/25/21 Estella Hassan, [facility] [address] [place] [address] Assigned MTM Pharmacist 12/09/21 Lindsay Carey OD [address] [place] [address] Ophthalmology 01/29/22 Richard Kam MD [address] [place] [address] Assigned Musculoskeletal Provider 08/14/22 [place] [address] [address] [address] Assigned Neuroscience Provider 01/01/23 12/03/24 Rosemarie Mcdowell, RN Elevator Erector Diabetes Education 03/17/23 Mitra Kendall, TECHNOLOGY METHODOLOGY CONSULTANT Lead Coordinator Of Library Services Primary Care - CC 12/12/23 Lizet Mann PA-C [address] [place] [address] Assigned Cancer Care Provider 01/04/24 Ravi Brownlee MD [address] [facility] [address] [place] [address] Assigned Pulmonology Provider 01/04/24 Manuel Ahn, ARA [address] [place] [address] Hydroelectric Operator 01/05/24 Thalia Charles, [facility] [address] [place], [place] [phone] Pharmacist Pharmacy 01/26/[address] PACKER OPERATOR [address] [address] [place] [address] Assigned Sleep Provider 02/04/24 Debbie Mann MD [address] [facility] [address] [place], [place] [phone] Cardiovascular Disease 02/24/24 Hakeem Chacko MBBS [address] [place] [address] Assigned Rheumatology Provider 04/05/24 Debbie Mann MD [address] [facility] [address] [place], [place] [phone] Assigned Heart and Vascular Provider 05/06/24 Timothy Tejada MD [address] [place] [phone] Ophthalmology 05/29/24 Timothy Tejada MD [address] [place] [address] Assigned Surgical Provider 06/03/24 Elsie Roberts APRN [facility] [address] [facility] [address] [place] [address] Nurse Practitioner Pain Medicine 10/16/24 Cristy Morton MD [facility]0 [facility] [place] [address] Assigned Pediatric Specialist Provider 11/03/24 Georgie Anguiano PA-C [address] [place] [place] [address] Assigned Neuroscience Provider 12/04/24 documented as of this encounter
--- OUTSIDE RECORDS SUMMARY | 2024-12-06 00:21 | XMS_ITS | Encounter Summary ---
Author Organization [facility] Address [address] [place] [address] Care Team Providers Care Inseamer Name Role Phone Va Glez MD Primary Care Provider [phone] Va Glez MD Unavailable Christy CampuzanoC Unavailable [phone] Hans Cannon MD Unavailable [phone] Estella Hassan [facility] Unavailable Josh Cordero MD, Madhuri Unavailable [phone] John Webb MD Unavailable [phone] John Webb MD Unavailable Estella Hassan [facility] Unavailable Lindsay Carey OD Unavailable [phone] Richard Kam MD Unavailable Gaby Vila DO Unavailable Rosemarie Mcdowell RN Unavailable Mitra Kendall ELECTRO OPTICS ENGINEER Unavailable [phone] Lizet Mann PA-C Unavailable Ravi Brownlee MD Unavailable [phone] Manuel Ahn OD Unavailable [phone] Thalia Charles [facility] Unavailable [phone] Gaurav Valenzuela RELEASE OF INFORMATION CLERK CRAB MEAT PROCESSOR Unavailable [phone] Debbie Mann MD Unavailable [phone] Hakeem Chacko MB Unavailable Debbie Mann MD Unavailable [phone] Timothy Tejada MD Unavailable [phone] Timothy Tejada MD Unavailable [phone] Elsie Roberts Jennifer RELEASE OF INFORMATION CLERK CRAB MEAT PROCESSOR Unavailable + Reason for Referral * Consultation (Routine: Next available opening) - Pending Review Specialty Diagnoses / Procedures Referred By Mireille gonzalez Referred To Contact Pain Medicine Diagnoses Right arm numbness Trent Gresham MD [address] [address] Phone: tel: fax: Jens Colon IV, MD [address] [place] [address] Phone: tel: fax: Referral ID Status Reason Start Date Expiration Date V isits Requested Visits Authorized [id number] Pending Review 10/23/2024 10/23/2025 1 1 Question Answer Reason for Referral: Procedure Order Procedure: Other My Clinical Question Is: referral to Dr. Colon for C5-6 selective nerve root injection Patient Scheduling Instructions: [employer] will call you to coordinate care as prescribed your provider. If you don t hear from a inventory representative within 2 business days, please call . Comments Please be aware that coverage of these services is subject to the terms and limitations of your health insurance plan. Call member services at your health plan with any benefit or coverage questions. [employer] will call you to coordinate care as prescribed your provider. If you don t hear from a inventory representative within 2 business days, please call . Reason for Visit * Reason Onset Date Comments Appointment 10/17/2024 Encounter Details Date Type Department Care Team (Late st Contact Info) Description 10/17/[address] [facility] [address] [place] [address] Trent Gresham MD 420 [facility] [address] [place], [place] [address] Appointment Social History Tobacco Use Types Packs/Day [...] re latives? 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 Gresham stated: Emg was negative and I???m not convinced the symptoms followed that dermatome. We could order a selective nerve root injection at c56 and see him after if he noted improvement. I don???t believe there is much benefit to me seeing him before this is completed though. Called patient to relay above, he understands. He would like to proceed with selective nerve root injection as recommended, order placed. Patient will update our team on symptoms post-injection. Visit with Dr. Gresham tomorrow has been cancelled, patient aware. * Telephone Encounter - Raghavendra Minor RN - 10/23/2024 8:33 AM CDT Patient read MyC, no response. Message sent. Called patient to discuss- he reports visit with Dr. Gresham tomorrow is now to discuss injections in his neck. Patient saw Dr. Kam (hand surgeon) in clinic yesterday and Dr. Kam stated: We again had a long discussion regarding [...] he could pursue treatment for cervical radiculopathy. Message sent to Dr. Gresham to determine if cervical injection can be ordered or if patient should see him as scheduled to discuss. Patient reports being at his [place] end with seeing different providers and having no resolution. * Telephone Encounter - Raghavendra Minor RN - 10/17/2024 9:23 AM CDT Per Georgie Anguiano PA-C on 10/10:Discussed your right foot pain. Your recent EMG is demonstrating peripheral neuropathy in your right leg which is likely from your diabetes Lumbar spine MRI was reviewed and findings confirm that your right foot pain is most likely not originating from your lower lumbar spine. Will obtain a flexion and extension lumbar x-ray to rule out any spine instability. We will reach out to you with results. Follow-up with your hand surgeon for carpal tunnel release. Follow-up with your orthopedist for your right knee injection/possible knee replacement. Follow-up with your primary care doctor for diabetes management. Please reach out to our neurosurgery clinic if you develop worsening low back pain that radiates down your leg, if you develop worsening numbness tingling, or weakness in your leg, or if you develop bladder or bowel changes. MyChart sent to patient. * Telephone Encounter - Pretty Becerra - 10/17/2024 9:14 AM CDT Patient was called to determine the nature of the visit- as Dr. Gresham had referred patient to a hand specialist. Patient stated that appointment on 10-24-24 was for the tingling in his leg, and to discuss the narrowing in the canal, and if there was a procedure that would correct the issue. Patient only wants tosee Dr. Gresham. * Addendum Note - Raghavendra Minor RN - 10/17/2024 9:14 AM CDTAddended by: RAGHAVENDRA MINOR on: 10/23/2024 03:05 PM Modules accepted: Orders documented in this encounter Plan of Treatment Upcoming Encounters Date Type Department Care Team (Late st Contact Info) Description 12/11/2024 2:10 PM CDT Therapy Visit [address] [address] Shanta Cooper, PT 12/14/2024 11:20 AM CDT Office Visit [facility] [address] [place] [address] Lizet Mann PA-C [address] [place] [address] 12/17/2024 2:10 PM CDT Office Visit [facility] Orthopedic [facility] [address] [place] [address] 4th [place] [phone] Richard Kam MD [address] [place] [address] 12/19/2024 8:20 AM CDT Therapy Visit [address] [address] Shanta Cooper, PT 12/24/2024 5:00 PM CDT Therapy Visit [address] [address] Pattie Casillas, PT 12/25/2024 10:20 AM CDT Therapy Visit [address] [address] Shanta Cooper, PT 01/03/2025 1:00 PM CDT Office Visit [address] [phone] Estella Hassan, [facility] [address] [place] [address] 01/03/2025 1:30 PM CDT Office Visit [address] [place] [address] [place] [address] [place] [address] 01/08/2025 1:15 PM CDT Office Visit [facility] [address] [facility] 200 [place] [address] Hakeem Chacko MBBS [address] [place] [address] Scheduled Procedures Name Priority Associated Diagnoses Date/Ti me INJECTION, EPIDURAL, TRANSFO RAMINAL APPROACH Cervical radiculitis RELEASE, CARPAL TUNNEL, ENDOSCOPIC Right carpal tunnel syndrome Scheduled Referrals Name Type Priority Associated Diagnoses Orde r Schedule Pain Management Broadband Installer Referral Referral Routine: Next available opening Right arm numbness Expected: 10/23/2024 (Approximate), Expires: 10/23/2025 documented as of this encounter Goals Goal [...] job and will access resources that the [employer] center offers. . Sarted new job 4. [...] by household income. 2. I will contact [employer] to ask about medicare plans and if there are saving programs I qualify for by by calling [phone]. 3. I will see if I am eligible for unemployment after losing my job. I will call [phone] to ask for assistance with unemployment application. 4. I will apply for jobs. I will work with [employer] in finding a job (Empowerment.) 5. I will access [employer] and ask about financial resources (such as getting gas card.) Improve management of mental health symptoms and establish with mental health/psychosocia l supports Care Plan Mental Health Symptoms Need Improvement 70%( 10:47 AM CDT) Mitra Borja LSW Note: Updated on 08/30/24 Barriers: I struggle with having anxiety.My children won;t talk with me due to my mental health concerns Strengths: I am accessing support that is available to me. Patient expressed understanding of goal: Yes Action steps to achieve this goal: 1. I will continue working with therapist at [place] [facility]. 2. I will establish with Psychiatry. Planning to schedule with Ronnie. 3. I will meet with [facility] lead worker of housekeeping and laundry Manjula Gresham. 4. I will look in to attending an IOP program. I will discuss with my [place] [facility] therapist and number provided for [facility] Behavioral Access - [phone] to schedule assessment fr IOP program. 5. I will go to [facility] if I have concerning mental health symptoms. 6. I will access [facility] Crisis if needed by calling [phone]. 7. I will consider calling [facility] Adult Mental health intake at [phone]. documented as of this encounter Visit Diagnoses Diagnosis Right arm numbness- Primary Disturbance of skin sensation documented in this [...] accurate information and submit it to the [facility]. 3. I will update [facility] Team at outreach. Health Maintenance Due or Overdue 12/16/2023 Patient expresses financial resource strain 12/13 Mental Health Symptoms Need Improvement 04/05/19 25 Infection Onset Date Last Indicated Resolved Time Rule Out COVID-19 10/17/2024 10/17/2024 10/17/2024 11:23 PM CDT Assessment Noted Time PHQ-9 Depression Total Score: 7 09/28/19 25 11:01 AM CDT documented as of this encounter Care Teams Inseamer Relationship Specialty [place] [address] [place] [address] PCP - General Family Practice 07/11/14 [place] [address] [place] [address] Assigned PCP 12/16/11 Christy Campuzano PA-C [address] [place] [id number] Referring Physician Family Medicine 04/22/20 Hans Cannon MD [address] [place] [id number] Resident Pulmonary Disease 04/22/20 Estella Hassan, [facility] [address] [place], [place] [address] Pharmacist Pharmacist 05/26/20 Elaina Moreno MD [address] [place], [place] [address] Cardiovascular & Thoracic Surgery 08/06/20 John Webb MD [address] [address] Cardiovascular Disease 08/25/21 John Webb MD [address] [place] [address] Cardiovascular Disease 08/25/21 Estella Hassan, [facility] [address] [place] [address] Assigned MTM Pharmacist 12/09/21 Lindsay Carey OD [address] [place] [address] Ophthalmology 01/29/22 Richard Kam MD [address] [place] [address] Assigned Musculoskeletal Provider 08/14/22 [place] [address] [facility] [address] [address] Assigned Neuroscience Provider 01/01/23 12/03/24 Rosemarie Mcdowell, RN Collator Operator Diabetes Education 03/17/23 Mitra Kendall, ELECTRO OPTICS ENGINEER Lead Linoleum Layer Primary Care - CC 12/12/23 Lizet Mann PA-C [address] [place] [address] Assigned Cancer Care Provider 01/04/24 Ravi Brownlee MD [address] [place] [address] Assigned Pulmonology Provider 01/04/24 Manuel Ahn OD [address] [place] [address] Fur Tailor 01/05/24 Thalia Charles [facility] [address] [place] [address] Pharmacist Pharmacy 01/26/24 Gaurav Valenzuela APRN CRAB MEAT PROCESSOR [address] [facility] 106 [place] [address] Assigned Sleep Provider 02/04/24 Debbie Mann MD [address] [facility] 200 [place], [place] [phone] Cardiovascular Disease 02/24/24 Hakeem Chacko MBBS [address] [place] [address] Assigned Rheumatology Provider 04/05/24 Debbie Mann MD [address] [facility] 200 [place], [place] [address] Assigned Heart and Vascular Provider 05/06/24 Timothy Tejada MD 6341 [place] [phone] Ophthalmology 05/29/24 Timothy Tejada MD [address] [place] [address] Assigned Surgical Provider 06/03/24 Elsie Roberts APRN CRAB MEAT PROCESSOR 1600 [facility] 101 [place], [place] [phone] Nurse Practitioner Pain Medicine 10/16/24 documented as of this encounter
--- OUTSIDE RECORDS SUMMARY | 2024-12-06 00:21 | XMS_ITS | Encounter Summary ---
Author Organization [facility] Address [address] [place] [address] Care Team Providers Care Property Disposal Officer Name Role Phone Va Glez MD Primary Care Provider [phone] Va Glez MD Unavailable Christy CampuzanoC Unavailable [phone] Hans Cannon MD Unavailable Estella Hassan [facility] Unavailable Josh Cordero MD, Madhuri Unavailable [phone] John Webb MD Unavailable John Webb MD Unavailable Estella Hassan [facility] Unavailable Lindsay Carey OD Unavailable Richard Kam MD Unavailable Gaby Vila DO Unavailable Rosemarie Mcdowell RN Unavailable Mitra Kendall QUALITY CONTROL INSPECTOR HEADING Unavailable [phone] Lizet Mann PA-C Unavailable [phone] Ravi Brownlee MD Unavailable Manuel Ahn OD Unavailable Thalia Charles [facility] Unavailable [phone] NicolasGaurav Ray TOBACCO WRAPPING MACHINE TENDER PROGRAM ADMIN Unavailable [phone] Debbie Mann MD Unavailable [phone] Hakeem Chacko MB Unavailable Debbie Mann MD Unavailable [phone] Timothy Tejada MD Unavailable [phone] Timothy Tejada MD Unavailable [phone] Elsie Roberts TOBACCO WRAPPING MACHINE TENDER PROGRAM ADMIN Unavailable + Cristy Morton MD Unavailable [phone] Georgie Anguiano PA-C Unavailable [phone] Encounter Details Date Type Department Care Team (Late st Contact Info) Description 10/17/2024 MyC Medical Advice [facility] Neurology [address], [address] [place] [address] Cassandra Minor, RN Social History Tobacco Use Types Packs/Day [...] re latives? 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 Gender Identity Not on file Sexual Orientation Not on file Occupation Industry Job Start Date Job End Date Not on file Not on file Not on file Not on file documented as of this encounter Plan of Treatment Upcoming Encounters Date Type Department Care Team (Late st Contact Info) Description 12/11/2024 2:10 PM CDT Therapy Visit [place] [address] [place] [address] Shanta Cooper, PT 12/14/2024 11:20 AM CDT Office Visit [facility] [address] [place] [address] Lizet Mann PA-C [address] [place] [address] 12/17/2024 2:10 PM CDT Office Visit [facility] Orthopedic [address] [place] [phone] Richard Kam MD [address] [place] [address] 12/19/2024 8:20 AM CDT Therapy Visit [place] [address] [place] [address] Shanta Cooper, PT 12/24/2024 5:00 PM CDT Therapy Visit [place] [address] [place] [phone] Pattie Casillas, PT 12/25/2024 10:20 AM CDT Therapy Visit [place] [address] [place] [address] Shanta Cooper, PT 01/03/2025 1:00 PM CDT Office Visit [facility] [address] [place] [phone] Estella Hassan, [facility] 30[address] [place] [address] 01/03/2025 1:30 PM CDT Office Visit [facility] [address] [place] [phone] [place] [address] [place], [place] [phone] 01/08/2025 1:15 PM CDT Office Visit [facility] 2945 [facility] 200 [place] [address] Hakeem Chacko MBBS [address] [place] [address] Scheduled Procedures Name Priority Associated Diagnoses Date/Ti me INJECTION, EPIDURAL, TRANSFO RAMINAL APPROACH Cervical radiculitis RELEASE, CARPAL TUNNEL, ENDOSCOPIC Right carpal tunnel syndrome documented as of this encounter Goals Goal Patient Goal Type Associated Problems Recent Progress Patient-Stated? Author Health Maintenance Care Plan HP GENERAL PROBLEM 100%(10/29/19 10:17 AM CDT) No Mitra Kendall, QUALITY CONTROL INSPECTOR HEADING Note: Update on 05/25/22 Barriers: Currently without [...] financial resource strain 100%(10/29/19 10:17 AM CDT) Mitra Borja LSW Note: [...] job and will access resources that the [employer] offers. . Sarted new job 4. Continue [...] by household income. 2. I will contact [facility] to ask about medicare plans and if there are saving programs I qualify for by by calling [phone]. 3. I will see if I am eligible for unemployment after losing my job. I will call [phone] to ask for assistance with unemployment application. 4. I will apply for jobs. I will work with [employer] in finding a job (Empowerment.) 5. I will access [employer] and ask about financial resources (such as [...] I will continue working with therapist at [facility]. 2. I will establish with Psychiatry. Planning to schedule with Ronnie. 3. I will meet with [facility] chore worker Manjula Gresham. 4. I will look in to attending an IOP program. I will discuss with my [place] [facility] therapist and number provided for [facility] Behavioral Access - [phone] to schedule assessment fr IOP program. 5. I will go to [facility] if I have concerning mental health symptoms. 6. I will access [facility] Crisis if needed by calling [phone]. 7. I will consider calling [facility] Adult Mental health intake at [phone]. documented as of this encounter Visit Diagnoses [...] accurate information and submit it to the [facility]. 3. I will update [facility] [...] as of this encounter Care Teams Property Disposal Officer Relationship Specialty [place] [address] [place] [address] PCP - General Family Practice 07/11/14 [place] [address] [place] [address] Assigned PCP 12/16/11 Christy Campuzano PA-C [address] [place] [phone] Referring Physician Family Medicine 04/22/20 Hans Cannon MD [address] [place] [address] Resident Pulmonary Disease 04/22/20 Estella Hassan, [facility] [address] [place] [phone] Pharmacist Pharmacist 05/26/20 Elaina Moreno MD [address] [place], [place] [address] Cardiovascular & Thoracic Surgery 08/06/20 John Webb MD [address] 212685 Cardiovascular Disease 08/25/21 John Webb MD [address] [address] Cardiovascular Disease 08/25/21 Estella Hassan, [facility] [address] [place], [place] [address] Assigned MTM Pharmacist 12/09/21 Lindsay Carey OD [address] [facility] [place] [address] Ophthalmology 01/29/22 Richard Kam MD 500 [place], [place] [address] Assigned Musculoskeletal Provider 08/14/22 [place] [address] [address] [address] Assigned Neuroscience Provider 01/01/23 12/03/24 Rosemarie Mcdowell, RN Reeling Machine Setup Operator Diabetes Education 03/17/23 Mitra Kendall, QUALITY CONTROL INSPECTOR HEADING Lead Structural Design Engineer Primary Care - CC 12/12/23 Liezt Mann PA-C [address] [place] [address] Assigned Cancer Care Provider 01/04/24 Ravi Brownlee MD 420 [facility] [address] [place] [address] Assigned Pulmonology Provider 01/04/24 Manuel Ahn OD [address] [place] [address] Sports Management Intern 01/05/24 Thalia Charles, [facility] [address] [place], [place] [phone] Pharmacist Pharmacy 01/26/24 Gaurav Valenzuela APRN CNP 606 [facility] 106 [place], [place] [address] Assigned Sleep Provider 02/04/24 Debbie Mann MD 1600 [facility] 200 [place], [place] [phone] Cardiovascular Disease 02/24/24 Hakeem Chacko MBBS 29[address] [place] [address] Assigned Rheumatology Provider 04/05/24 Debbie Mann MD 1600 [facility] 200 [place] [address] Assigned Heart and Vascular Provider 05/06/24 Timothy Tejada MD 6341 [place] [address] Ophthalmology 05/29/24 Timothy Tejada MD [address] [address] Assigned Surgical Provider 06/03/24 Elsie Roberts APRN PROGRAM ADMIN 1600 [facility] [address] [place] [address] Nurse Practitioner Pain Medicine 10/16/24 Cristy Morton MD [facility] [address] [place] [address] Assigned Pediatric Specialist Provider 11/03/24 Georgie Anguiano PA-C [address] [address] Assigned Neuroscience Provider 12/04/24 documented as of this encounter
--- OUTSIDE RECORDS SUMMARY | 2024-12-06 00:21 | XMS_ITS | Encounter Summary ---
Author Organization [facility] Address [address] [place] [address] Care Team Providers Care Histopath Tech Name Role Phone Va Glez MD Primary Care Provider [phone] Va Glez MD Unavailable Christy Campuzano PAUniqueC Unavailable [phone] Hans Cannon MD Unavailable Estella Hassan [facility] Unavailable Josh Cordero MD, Madhuri Unavailable [phone] John Webb MD Unavailable [phone] John Webb MD Unavailable [phone] Estella Hassan [facility] Unavailable Lindsay Carey OD Unavailable Richard Kam MD Unavailable Gaby Vila DO Unavailable [phone] Rosemarie Mcdowell RN Unavailable Mitra Kendall TAILING MACHINE OPERATOR Unavailable [phone] Lizet Mann PA-C Unavailable Ravi Brownlee MD Unavailable Nav Hughes MD Unavailable [phone] Manuel Ahn OD Unavailable Arabella Fishman MA Unavailable [phone] Thalia Charles [facility] Unavailable Gaurav Valenzuela PARK MAINTAINER RENEWABLE ENERGY DIVISION MANAGER Unavailable Daydya Ahngina Syed OD Unavailable Debbie Mann MD Unavailable Hakeem ChackoBS Unavailable Debbie Mann MD Unavailable Timothy Tejada MD Unavailable Timothy Tejada MD Unavailable [phone] Elsie Roberts PARK MAINTAINER RENEWABLE ENERGY DIVISION MANAGER Unavailable + Cristy Morton MD Unavailable [phone] Georgie Anguiano PA-C Unavailable [phone] Encounter Details Date Type Department Care Team (Late st Contact Info) Description 02/25/2024 [facility] Medical Advice [facility] [address] [address] Richard Kam MD [address] [place] [address] Social History Tobacco Use Types [...] re latives? Once a week 12/23/2023 Attends Sikh Services Not on file 12/22 Active Member [...] 10/20/2022 PHQ-2 Answer Date Recorded PHQ-2 Score 4 02/10/2024 [facility] of [facility]at ional [...] motionally safe where you currently live? Yes 02/02/2024 Within the past 12 months, h ave you been hit, slapped, kicked or otherwise physically hurt by someone? No 02/02/2024 Within the past 12 months, h ave you been humiliated or emotionally abused in other ways by your partner or ex-partner? 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 Gender Identity Not on file Sexual Orientation Not on file Occupation Industry Job Start Date Job End Date Not on file Not on file Not on file Not on file documented as of this encounter Plan of Treatment Upcoming Encounters Date Type Department Care Team (Late st Contact Info) Description 12/11/2024 2:10 PM CDT Therapy Visit [address] [phone] Shanta Cooper, PT 12/14/2024 11:20 AM CDT Office Visit [address] [phone] Lizet Mann PA-C [address] [place] [address] 12/17/2024 2:10 PM CDT Office Visit [facility] Orthopedic [address] [place] [phone] Richard Kam MD [address] [place] [address] 12/19/2024 8:20 AM CDT Therapy Visit [address] [phone] Shanta Cooper, PT 12/24/2024 5:00 PM CDT Therapy Visit [address] [place] [phone] Pattie Casillas, PT 12/25/2024 10:20 AM CDT Therapy Visit [facility] [address] [place] [address] 290 [place] [phone] Shanta Cooper, PT 01/03/2025 1:00 PM CDT Office Visit [address] [phone] Estella Hassan, [facility] [address] [place] [address] 01/03/2025 1:30 PM CDT Office Visit [address] [phone] [place] [id number] [place] [phone] 01/08/2025 1:15 PM CDT Office Visit [facility] [address] [place] [address] 200 [place] [phone] Hakeem Chacko MBBS 29[address] [place] [address] Scheduled Procedures Name Priority Associated Diagnoses Date/Ti me INJECTION, EPIDURAL, TRANSFO RAMINAL APPROACH Cervical radiculitis RELEASE, CARPAL TUNNEL, ENDOSCOPIC Right carpal tunnel syndrome documented as of this encounter Goals Goal Patient Goal Type Associated Problems Recent Progress Patient-Stated? Author Health Maintenance Care Plan HP GENERAL PROBLEM 100%(10/29/19 10:17 AM CDT) No Mitra Kendall, TAILING MACHINE OPERATOR Note: Update on 05/25/22 Barriers: Currently without [...] for health insurance by looking in to [employer] and talking with a FRW. Completed 3. I will look for a new job and will access resources that the [employer] offers. . Sarted new job 4. Continue [...] FRW in applying for [facility] assistance and to see if I qualify for Medicaid. I need to ask spouse what her income is as it goes by household income. 2. I will contact [facility] to ask about medicare plans and if there are saving programs I qualify for by by calling [phone]. 3. I will see if I am eligible for unemployment after losing my job. I will call [phone] to ask for assistance with unemployment application. 4. I will apply for jobs. I will work with [employer] in finding a job (Empowerment.) 5. 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 EQUIPMENT REPAIRER documented as of this encounter Care Teams Histopath Tech Relationship Specialty [place] [address] [place], [place] [phone] PCP - General Family Practice 07/11/14 [place] [address] [place] [address] Assigned PCP 12/16/11 Christy Campuzano PA-C [address] [place] [address] [phone] Referring Physician Family Medicine 04/22/20 Hans Cannon MD [address] [place] [address] 969102 Resident Pulmonary Disease 04/22/20 Estella Hassan, [facility] [address] [place], [place] [address] Pharmacist Pharmacist 05/26/20 Elaina Moreno MD 909 [place], [place] 672775 Cardiovascular & Thoracic Surgery 08/06/20 John Webb MD [address] [place] 8[address]295 Cardiovascular Disease 08/25/21 John Webb MD [address] [place] [place] [address] Cardiovascular Disease 08/25/21 Estella Hassan, [facility] [address] [place] [address] Assigned MTM Pharmacist 12/09/21 Lindsay Carey OD [address] [facility] [place] [place] [address] Ophthalmology 01/29/22 Richard Kam MD [address] [place] [address] Assigned Musculoskeletal Provider 08/14/22 [place] [address] [place] , [address] [address] Assigned Neuroscience Provider 01/01/23 12/03/24 Rosemarie Mcdowell, RN Minister Of Religion Diabetes Education 03/17/23 Mitra Kendall, TAILING MACHINE OPERATOR Lead Printing Gray Cloth Tender Primary Care - CC 12/12/23 Lizet Mann PA-C [address] [place] [address] Assigned Cancer Care Provider 01/04/24 Ravi Brownlee MD 420 [facility] 276 [place] [address] Assigned Pulmonology Provider 01/04/24 Nav Hughes MD [address] [facility] [address] [place] [address] Assigned Heart and Vascular Provider 01/04/24 05/05/24 Manuel Ahn OD 6341 [place] [address] Machine Strap Buckler 01/05/24 Arabella Fishman MA Financial Resource Worker 01/06/24 03/19/24 Thalia Charles [facility] [address] [place], [place] [phone] Pharmacist Pharmacy 01/26/24 Gaurav Valenzuela APRN RENEWABLE ENERGY DIVISION MANAGER [address] [address] Assigned Sleep Provider 02/04/24 Manuel Ahn, ARA [address] [place] [address] Assigned Surgical Provider 02/04/24 06/02/24 Debbie Mann MD [address] [address] Cardiovascular Disease 02/24/24 Hakeem Chacko MBBS [facility]5 [place] [address] Assigned Rheumatology Provider 04/05/24 Debbie Mann MD 1600 [facility] 200 [place], [place] [phone] Assigned Heart and Vascular Provider 05/06/24 Timothy Tejada MD 6341 [place] [phone] Ophthalmology 05/29/24 Timothy Tejada MD [address] [place] [address] Assigned Surgical Provider 06/03/24 Elsie Roberts APRN RENEWABLE ENERGY DIVISION MANAGER 1600 [facility] 101 [place] [phone] Nurse Practitioner Pain Medicine 10/16/24 Cristy Morton MD [address] [place] [address] [place] [place]O [phone] Assigned Pediatric Specialist Provider 11/03/24 Georgie Anguiano PA-C 6545 [facility] [place] 876225 Assigned Neuroscience Provider 12/04/24 documented as of this encounter
--- OUTSIDE RECORDS SUMMARY | 2024-12-06 00:22 | XMS_ITS | Encounter Summary ---
Author Organization [facility] Address [address] [place] [address] Care Team Providers Care Stove Fitter Name Role Phone Va Glez MD Primary Care Provider Va Glez MD Unavailable Kerry Bernal RN Unavailable [phone] Ravi Barillas DPM Unavailable [phone] Christy Campuzano PA-C Unavailable Hans Cannon MD Unavailable Mitra Kendall FACTORY CLERK Unavailable Burt Jovel MD Unavailable Estella Hassan [facility] Unavailable [phone] Reji Chavez MD Unavailable Josh Cordero MD, Madhuri Unavailable [phone] Josh Cordero MD, Madhuri Unavailable [phone] Kelsi Hassan MD Unavailable [phone] John Webb MD Unavailable [phone] John Webb MD Unavailable Estella Hassan [facility] Unavailable [phone] Nav Hughes MD Unavailable [phone] Cassandra Mendoza MD Unavailable Estella Hassan RPH Unavailable Mitra Kendall FACTORY CLERK Unavailable Aurelio Lindsay Kenzie OD Unavailable Ravi Brownlee MD Unavailable Kye Arabella MA Unavailable [phone] Richard Kam MD Unavailable Marisol Patel RPH Unavailable Gaby Vila DO Unavailable Rosemarie Mcdowell RN Unavailable Ravi Brownlee MD Unavailable Mitra Kendall FACTORY CLERK Unavailable Lizet MannC Unavailable Ravi Brownlee MD Unavailable Nav Hughes MD Unavailable [phone] Manuel Ahn OD Unavailable Kye Arabella MA Unavailable [phone] Thalia Charles RP Unavailable Gaurav Valenzuela APRN GRAIN HANDLER Unavailable Manuel Ahn OD Unavailable Debbie Mann MD Unavailable Hakeem Chacko Unavailable Debbie Mann MD Unavailable Timothy Tejada MD Unavailable Timothy Tejada MD Unavailable Elsie Roberts APRN GRAIN HANDLER Unavailable + Cristy Morton MD Unavailable Georgie Anguiano PA-C Unavailable Encounter Details Date Type Department Care Team (Late st Contact Info) Description 08/28/2020 [facility] Medical Advice [address] [phone] Estella Hassan, [facility] [address] [place] [address] Social History Tobacco Use Types Packs/Day Years [...] points; Administer PHQ-9 if positive 1 08/06/2020 [facility]at ional Health - [...] on file 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 Gender Identity Not on file Sexual [...] Description 12/11/2024 2:10 PM CDT Therapy Visit [facility] [address] [place] [phone] Shanta Cooper, MOIZ 12/14/2024 11:20 AM CDT Office Visit [facility] [address] [place] [phone] Lizet Mann PA-C [address] [facility] [place] [place] [address] 12/17/2024 2:10 PM CDT Office Visit [facility] 909 [facility] 4th [place] [address] Richard Kam MD 500 [place] [address] 12/19/2024 8:20 AM CDT Therapy Visit [address] [place] [phone] Shanta Cooper, PT 12/24/2024 5:00 PM CDT Therapy Visit [address] [address] Pattie Casillas, PT 12/25/2024 10:20 AM CDT Therapy Visit [address] [address] Shanta Cooper, PT 01/03/2025 1:00 PM CDT Office Visit [address] [phone] Estella Hassan, [facility] 30[address] [place] [address] 01/03/2025 1:30 PM CDT Office Visit [address] [phone] Va Glez MD [address] [place] [address] [phone] 01/08/2025 1:15 PM CDT Office Visit [facility] 2945 [facility] [address] [place] [phone] Hakeem Chacko MBBS 2525 [place] [address] Scheduled Procedures Name Priority Associated Diagnoses Date/Ti me INJECTION, EPIDURAL, TRANSFO RAMINAL APPROACH Cervical radiculitis RELEASE, CARPAL TUNNEL, ENDOSCOPIC Right carpal tunnel syndrome documented as of this encounter Visit Diagnoses Not on filedocumented in this encounter Additional Health Concerns Infection Onset Date Last Indicated Resolved Time Rule Out COVID-19 06/22/2021 06/22/2021 06/23/2021 8:58 PM CDT Rule Out COVID-19 01/22/2022 01/22/2022 01/24/2022 1:05 PM LUNCH COUNTER MANAGER Rule Out COVID-19 01/25/2022 01/25/2022 01/25/2022 5:21 AM LUNCH COUNTER MANAGER Influenza 01/25/2022 01/25/2022 02/01/2022 11:4 1 PM LUNCH COUNTER MANAGER Rule Out COVID-19 07/29/2022 07/29/2022 07/31/2022 11:17 AM CDT Rule Out COVID-19 03/23/2023 03/23/2023 03/23/2023 6:30 PM LUNCH COUNTER MANAGER COVID-19 03/23/2023 03/23/2023 04/13/2023 11:4 0 PM LUNCH COUNTER MANAGER Rule Out COVID-19 06/05/2023 06/05/2023 06/05/2023 5:53 PM CDT Rule Out COVID-19 11/06/2023 11/06/2023 11/06/2023 11:05 PM CDT Rule Out COVID-19 11/20/2023 11/20/2023 11/20/2023 6:43 PM CDT Rule Out COVID-19 12/27/2023 12/27/2023 12/29/2023 1:37 PM CDT Rule Out COVID-19 03/01/2024 03/01/2024 03/01/2024 1:11 PM LUNCH COUNTER MANAGER Rule Out COVID-19 07/18/2024 07/18/2024 07/19/2024 5:52 PM CDT Rule Out COVID-19 10/17/2024 10/17/2024 10/17/2024 11:23 PM CDT Rule Out C-difficile 11/04/2024 11/04/2024 025 1:55 AM CDT Assessment Noted Time PHQ-9 Depression Total Score: 7 08/08/19 21 7:03 AM CDT documented as of this encounter Care Teams Stove Fitter Relationship Specialty [place] [address] [place] [address] PCP - General Family Practice 07/11/14 [place] [address] [place] [address] Assigned PCP 12/16/11 Kerry Bernal RN Personal Advocate & Liaison (PAL) 01/08/19 07/10/23 Ravi Barillas DPM [address] [facility] [address] [place] [address] Assigned Musculoskeletal Provider 03/23/20 10/30/21 Christy Campuzano PA-C [address] [place] [address]272 Referring Physician Family Medicine 04/22/20 Hans Cannon MD [address] [place] [address] Resident Pulmonary Disease 04/22/20 Mitra Kendall, FACTORY CLERK Lead Sample Examiner Primary Care - CC 01/08/1901/12 Burt Jovel MD Internal Medicine 05/08/20 12/13/23 Estella Hassan, [facility] [address] [place] [address] Pharmacist Pharmacist 05/26/20 Reji Chavez MD 6[address] [facility] [address] [place] [phone] Assigned Heart and Vascular Provider 05/18/20 10/30/21 Elaina Moreno MD [address] [place] [address] Assigned Surgical Provider 05/18/20 11/19/22 Elaina Moreno MD [address] [place] [address] Cardiovascular & Thoracic Surgery 08/06/20 Kelsi Hassan MD [address] [place] [address] Assigned Pulmonology Provider 06/28/21 02/05/22 John Webb MD [address] [address] Cardiovascular Disease 08/25/21 John Webb MD [address] [place] [place] 738265 Cardiovascular Disease 08/25/21 Estella Hassan, [facility] 3033 [place] [address] Assigned MTM Pharmacist 09/05/21 Nav Hughes MD [address] [place] [address] Assigned Heart and Vascular Provider 10/31/21 09/03/23 Cassandra Mendoza MD ORTHOPAEDIC SURGERY [facility] [address] [address] Assigned Musculoskeletal Provider 10/31/21 08/13/22 Estella Hassan, [facility] [address] [place] [address] Assigned MTM Pharmacist 12/09/21 Mitra Kendall, [facility] Lead Sample Examiner Primary Care - CC 01/26/2210/28 Lindsay Carey OD 3305 [facility] [place] [address] Ophthalmology 01/29/22 Ravi Brownlee MD [address] [place] [address] Assigned Pulmonology Provider 02/06/22 09/03/23 Arabella Fishman MA Financial Resource Worker 02/22/22 02/23/22 Rcihard Kam MD [address] [place] [address] Assigned Musculoskeletal Provider 08/14/22 Marisol Patel, [facility] 1440 [facility] [place] [phone] Pharmacist Pharmacist 11/22/22 01/09/23 [place] [address] [place], [address] [address] Assigned Neuroscience Provider 01/01/23 12/03/24 Rosemarie Mcdowell RN Juvenile Detention Officer Diabetes Education 03/17/23 Ravi Brownlee MD [address] [address]101[address] Assigned Heart and Vascular Provider 09/04/23 01/03/24 Mitra Kendall, [facility] Lead Sample Examiner Primary Care - CC 12/12/23 Lizet Mann PA-C [address] [place] [address] [place] [address] Assigned Cancer Care Provider 01/04/24 Ravi Brownlee MD [address] [address] Assigned Pulmonology Provider 01/04/24 Nav Hughes MD [address] [facility] [address] [place] [address] Assigned Heart and Vascular Provider 01/04/24 05/05/24 Manuel Ahn OD 6341 [place] [address] Graduate Rn 01/05/24 Arabella Fishman MA Financial Resource Worker 01/06/24 03/19/24 Melvin Thalia, [facility] [address] [place], [place] [phone] Pharmacist Pharmacy 01/26/24 Gaurav Valenzuela APRN GRAIN HANDLER 606 [facility] 106 [place], [place] 0480[address] Assigned Sleep Provider 02/04/24 Manuel Ahn OD 6341 [place], [place] 132182 Assigned Surgical Provider 02/04/24 06/02/24 Debbie Mann MD [address] [address] Cardiovascular Disease 02/24/24 Hakeem Chacko MBBS 2945 [place], [place] [phone] Assigned Rheumatology Provider 04/05/24 Debbie Mann MD 1600 [facility] 200 [place], [place] [phone] Assigned Heart and Vascular Provider 05/06/24 Timothy Tejada MD 6341 [place] [phone] Ophthalmology 05/29/24 Timothy Tejada MD 6341 [place] [address] Assigned Surgical Provider 06/03/24 Elsie Roberts APRN GRAIN HANDLER 1600 [facility] [place] [address] [place] [place] [address] Nurse Practitioner Pain Medicine 10/16/24 Cristy Morton MD 1440 [facility] [place] [address] Assigned Pediatric Specialist Provider 11/03/24 Georgie Anguiano PA-C [address] [place] [address] Assigned Neuroscience Provider 12/04/24 documented as of this encounter
--- OUTSIDE RECORDS SUMMARY | 2024-12-06 00:22 | XMS_ITS | Encounter Summary ---
Author Organization [facility] Address [address] [place] [address] Care Team Providers Care Test Examiner Name Role Phone Va Glez MD Primary Care Provider Va Glez MD Unavailable Kerry Bernal RN Unavailable Christy Campuzano PA-C Unavailable Hans Cannon MD Unavailable Burt Jovel MD Unavailable Estella Hassan [facility] Unavailable [phone] Josh Cordero MD, Madhuri Unavailable [phone] John Webb MD Unavailable John Webb MD Unavailable Nav Hughes MD Unavailable [phone] Estella Hassan [facility] Unavailable [phone] Lindsay Carey OD Unavailable [phone] Ravi Brownlee MD Unavailable Richard Kam MD Unavailable Marisol Patel [facility] Unavailable [phone] Gaby Vila DO Unavailable [phone] Rosemarie Mcdowell RN Unavailable Ravi Brownlee MD Unavailable Mitra Kendall Unavailable Lizet Mann PA-C Unavailable Ravi Brownlee MD Unavailable Nav Hughes MD Unavailable [phone] Manuel Ahn OD Unavailable Arabella Fishman MA Unavailable [phone] Thalia Charles [facility] Unavailable [phone] Gaurav Valenzuela OYSTER FARMER MECHANICAL INTEGRITY SPECIALIST Unavailable Manuel Ahn OD Unavailable Debbie Mann MD Unavailable Hakeem Chacko Unavailable Debbie Mann MD Unavailable Timothy Tejada MD Unavailable Timothy Tejada MD Unavailable Elsie Roberts APRN MECHANICAL INTEGRITY SPECIALIST Unavailable + Cristy Morton MD Unavailable Georgie Anguiano PA-C Unavailable Encounter Details Date Type Department Care Team (Late st Contact Info) Description 11/22/2022 MyC Medical Advice [facility] Dianne [address] [facility] [address] [place] [address] Marisol Patel, [facility] [address] [facility] [place] [address] Social History Tobacco Use Types Packs/Day [...] week 10/20/2022 How often do you attend [facility] or [facility] services? More than 4 times [...] Answer Date Recorded PHQ-2 Score 0 10/20/2022 [facility] - Occupational Stress [...] place to sleep or slept in a alf (including now)? 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 [place] [address] 12/17/2024 2:10 PM CDT Office Visit [facility] Orthopedic [facility] [address] [facility] 4th [place] [address] Richard Kam MD [address] [place] [address] 12/19/2024 8:20 AM CDT Therapy Visit [address] [phone] Shanta Cooper, PT 12/24/2024 5:00 PM CDT Therapy Visit [address] [phone] Pattie Casillas, PT 12/25/2024 10:20 AM CDT Therapy Visit [address] [place] [phone] Shanta Cooper, PT 01/03/2025 1:00 PM CDT Office Visit [facility] [address] [place] [phone] Estella Hassan, [facility] [address] [place] [address] 01/03/2025 1:30 PM CDT Office Visit [facility] [address] [place] [phone] [place] [address] [place] [address] 01/08/2025 1:15 PM CDT Office [facility] 2945 [facility] 200 [place] [address] Hakeem Chacko MBBS [address]45 [place] [address] Scheduled Procedures Name Priority Associated Diagnoses Date/Ti [...] for health insurance by looking in to [employer] and talking with a FRW. Completed 3. I will look for a new job and will access resources that the workforce center offers. . Sarted new job 4. Continue to use Single Care to reduce the cost of my prescriptions. Create an action plan to increase financial stability Care Plan Patient expresses financial resource strain Leticia Patel Josefina documented as of this encounter Visit Diagnoses [...] accurate information and submit it to the [facility]. 3. I will update CCC Team at outreach. Infection Onset Date Last Indicated Resolved Time Rule Out COVID-19 03/23/2023 03/23/2023 03/23/2023 6:30 PM CEMENT FINISHING SUPERVISOR COVID-19 03/23/2023 03/23/2023 04/13/2023 11:4 0 PM CEMENT FINISHING SUPERVISOR Rule Out COVID-19 06/05/2023 06/05/2023 06/05/2023 5:53 PM CDT Rule Out COVID-19 11/06/2023 11/06/2023 11/06/2023 11:05 PM CDT Rule Out COVID-19 11/20/2023 11/20/2023 11/20/2023 6:43 PM CDT Rule Out COVID-19 12/27/2023 12/27/2023 12/29/2023 1:37 PM CDT Rule Out COVID-19 03/01/2024 03/01/2024 03/01/2024 1:11 PM CEMENT FINISHING SUPERVISOR Rule Out COVID-19 07/18/2024 07/18/2024 07/19/2024 5:52 PM CDT Rule Out COVID-19 10/17/2024 10/17/2024 10/17/2024 11:23 PM CDT Rule Out C-difficile 11/04/2024 11/04/2024 08/25/2 025 1:55 AM CDT Assessment Noted Time PHQ-9 Depression Total Score: 2 10/21/19 23 3:59 PM CDT documented as of this encounter Care Teams Test Examiner Relationship Specialty [place] [address] [place], [place] [phone] PCP - General Family Practice 07/11/14 [place] [address] [place], [place] [phone] Assigned PCP 12/16/11 Kerry Bernal RN Personal Advocate & Liaison (PAL) 01/08/19 07/10/23 Christy Campuzano PA-C [address] [place] [address] 912902 Referring Physician Family Medicine 04/22/20 Hans Cannon MD [address] [place] [address] 081442 Resident Pulmonary Disease 04/22/20 Burt Jovel MD [address] [place] [address] 745212 Internal Medicine 05/08/20 12/13/23 Estella Hassan, [facility] [address] [place] [address] Pharmacist Pharmacist 05/26/20 Elaina Moreno MD [address] [place] [address] Cardiovascular & Thoracic Surgery 08/06/20 John Webb MD [address] [place] [address] Cardiovascular Disease 08/25/21 John Webb MD [address] [place] [address] Cardiovascular Disease 08/25/21 Nav Hughes MD [address] [place] [address] Assigned Heart and Vascular Provider 10/31/21 09/03/23 Estella Hassan [facility] [address] [place] [address] Assigned MTM Pharmacist 12/09/21 Lindsay Carey OD [address] [facility] [address] Ophthalmology 01/29/22 Ravi Brownlee MD [address] [place] [address] Assigned Pulmonology Provider 02/06/22 09/03/23 Richard Kam MD [address] [place] [address] Assigned Musculoskeletal Provider 08/14/22 Marisol Patel, [facility] [address] [facility] [place] [phone] Pharmacist Pharmacist 11/22/22 01/09/23 [place] [address] [address] Assigned Neuroscience Provider 01/01/23 12/03/24 Rosemarie Mcdowell, RN Senior Hardware Design Engineer Diabetes Education 03/17/23 Ravi Brownlee MD [address] 037245 Assigned Heart and Vascular Provider 09/04/23 01/03/24 Mitra Kendall, [facility] Lead Tassel Clipper Primary Care - CC 12/12/23 Lizet Mann PA-C [address] [place] [address] Assigned Cancer Care Provider 01/04/24 Ravi Brownlee MD [address] [place] [address] Assigned Pulmonology Provider 01/04/24 Nav Hughes MD [address] [place] [address] [place] [address] Assigned Heart and Vascular Provider 01/04/24 05/05/24 Manuel Ahn OD 6341 [facility] [place] 8[address] Can Sealer 01/05/24 Arabella Fishman MA Financial Resource Worker 01/06/24 03/19/24 Thalia Charles [facility] [address] [place], [place] [phone] Pharmacist Pharmacy 01/26/24 Gaurav Valenzuela APRN MECHANICAL INTEGRITY SPECIALIST [address] [facility] [place] [place], [place] 511444 Assigned Sleep Provider 02/04/24 Manuel Ahn OD 6341 [place], [place] 386742 Assigned Surgical Provider 02/04/24 06/02/24 Debbie Mann MD [address] [facility] 200 [place] [address] Cardiovascular Disease 02/24/24 Hakeem Chacko MBBS 2945 [place] [address] Assigned Rheumatology Provider 04/05/24 Debbie Mann MD [address] [facility] 200 [place] [address] Assigned Heart and Vascular Provider 05/06/24 Timothy Tejada MD 6341 [place] [phone] Ophthalmology 05/29/24 Timothy Tejada MD 6341 [place] [phone] Assigned Surgical Provider 06/03/24 Elsie Roberts APRN MECHANICAL INTEGRITY SPECIALIST 1600 [facility] [place] [address] [place] [address] Nurse Practitioner Pain Medicine 10/16/24 Cristy Morton MD [address] [facility] [place] [phone] Assigned Pediatric Specialist Provider 11/03/24 Georgie Anguiano PA-C [address] [place] [id number] Assigned Neuroscience Provider 12/04/24 documented as of this encounter
--- OUTSIDE RECORDS SUMMARY | 2024-12-06 00:22 | XMS_ITS | Encounter Summary ---
Author Organization [facility] Address [address] [place] [address] Care Team Providers Care Petroleum Refining Firer Name Role Phone Va Glez MD Primary Care Provider [phone] Va Glez MD Unavailable Christy Campuzano PAUniqueC Unavailable [phone] Hans Cannon MD Unavailable [phone] Estella Hassan [facility] Unavailable [phone] Josh Cordero MD, Madhuri Unavailable [phone] John Webb MD Unavailable John Webb MD Unavailable Estella Hassan [facility] Unavailable [phone] Lindsay Carey OD Unavailable Richard Kam MD Unavailable Gaby Vila DO Unavailable Rosemarie Mcdowell RN Unavailable Mitra Kendall CRIME LAB TECHNICIAN Unavailable [phone] Lizet Mann PA-C Unavailable Ravi Brownlee MD Unavailable Nav Hughes MD Unavailable [phone] Manuel Ahn OD Unavailable [phone] Arabella Fishman MA Unavailable [phone] Thalia Charles [facility] Unavailable [phone] Gaurav Valenzuela PROPERTY COORDINATOR FISH HOUSEKEEPER Unavailable [phone] Dayday Ahngina Syed OD Unavailable [phone] Debbie Mann MD Unavailable [phone] Hakeem ChackoBS Unavailable Debbie Mann MD Unavailable [phone] Timothy Tejada MD Unavailable [phone] Timothy Tejada MD Unavailable [phone] Elsie Roberts PROPERTY COORDINATOR FISH HOUSEKEEPER Unavailable + Cristy Morton MD Unavailable [phone] Georgie Anguiano PA-C Unavailable [phone] Encounter Details Date Type Department Care Team (Late st Contact Info) Description 03/12/2024 MyC Medical Advice [place] [address] [place] [address] Olivia Richard Social History Tobacco Use Types Packs/Day Years [...] Answer Date Recorded PHQ-2 Score 4 02/10/2024 [facility] - Occupational Stress Questionnaire Answer [...] in an overnight alf, 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.) Yes 12/23/2023 Are you worried [...] on file 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 Gender Identity Not on file Sexual Orientation Not on file Occupation Industry Job Start Date Job End Date Not on file Not on file Not on file Not on file documented as of this encounter Plan of Treatment Upcoming Encounters Date Type Department Care Team (Late st Contact Info) Description 12/11/2024 2:10 PM CDT Therapy Visit [address] [place] [phone] Shanta Cooper, PT 12/14/2024 11:20 AM CDT Office Visit [facility] [phone] [place] [address] [place] [address] Lizet Mann PA-C [address] [place] [address] 12/17/2024 2:10 PM CDT Office Visit [facility] Orthopedic [address] 4th [place] [phone] Richard Kam MD [address] [place] [address] 12/19/2024 8:20 AM CDT Therapy Visit [place] [address] [place] [phone] Shanta Cooper, PT 12/24/2024 5:00 PM CDT Therapy Visit [address] [place] [phone] Pattie Casillas, PT 12/25/2024 10:20 AM CDT Therapy Visit [facility] [place] [address] [place] [address] Shanta Cooper, MOIZ 01/03/2025 1:00 PM CDT Office Visit [facility] [address] [place] [phone] Estella Hassan, [facility] 3033 [place] [address] 01/03/2025 1:30 PM CDT Office Visit [facility] [address] [place] [phone] [place] [address] [place], [place] [phone] 01/08/2025 1:15 PM CDT Office Visit [facility] 2945 [facility] 200 [place] [address] Hakeem Chacko MBBS 2945 [place], [place] [phone] Scheduled Procedures Name Priority Associated Diagnoses Date/Ti [...] for health insurance by looking in to [employer] and talking with a FRW. Completed 3. I will look for a new job and will access resources that the [employer] offers. . Sarted new job 4. Continue [...] by household income. 2. I will contact [facility] to ask about medicare plans and if there are saving programs I qualify for by by calling [phone]. 3. I will see if I am eligible for unemployment after losing my job. I will call [phone] to ask for assistance with unemployment application. 4. I will apply for jobs. I will work with [employer] in finding a job (Empowerment.) 5. I will access [employer] and ask about financial resources (such as [...] Last Indicated Resolved Time Rule Out COVID-19 07/18/2024 07/18/2024 07/19/2024 5:52 PM CDT Rule Out COVID-19 10/17/2024 10/17/2024 10/17/2024 11:23 PM CDT Rule Out C-difficile 11/04/2024 11/04/2024 025 1:55 AM CDT Assessment Noted Time PHQ-9 Depression Total Score: 11 024 10:39 AM HIGH SCHOOL HISTORY TEACHER documented as of this encounter Care Teams Petroleum Refining Firer Relationship Specialty [place] [address] [place] [address] PCP - General Family Practice 07/11/14 [place] [address] [place] [address] Assigned PCP 12/16/11 Christy Campuzano PA-C [address] [place] [address] 681952 Referring Physician Family Medicine 04/22/20 Hans Cannon MD [address] [place] [address] 648722 Resident Pulmonary Disease 04/22/20 Estella Hassan, [facility] [address] [place] [address] [phone] Pharmacist Pharmacist 05/26/20 Elaina Moreno MD [address] [place] [address] 097845 Cardiovascular & Thoracic Surgery 08/06/20 John Webb MD [address] [place] [address] Cardiovascular Disease 08/25/21 John Webb MD [address] [place] 847885 Cardiovascular Disease 08/25/21 Estella Hassan, [facility] [address] [place] [address] Assigned MTM Pharmacist 12/09/21 [place] [address] [place] [address] [place] [address] Ophthalmology 01/29/22 Richard Kam MD [address] [place] [address] Assigned Musculoskeletal Provider 08/14/22 [place] [address] [place] , [address] [address] Assigned Neuroscience Provider 01/01/23 12/03/24 Rosemarie Mcdowell RN Label Coder Diabetes Education 03/17/23 Mitra Kendall, CRIME LAB TECHNICIAN Lead Belt Measurer Primary Care - CC 12/12/23 Lizet Mann PA-C [address] [place] [address] Assigned Cancer Care Provider 01/04/24 Ravi Brownlee MD [address] [place] [address] 276 [place] [address] Assigned Pulmonology Provider 01/04/24 Nav Hughes MD 6405 [facility] [address] [place] [address] Assigned Heart and Vascular Provider 01/04/24 05/05/24 Manuel Ahn OD 6341 [facility] [place] [address] Black Top Raker 01/05/24 Arabella Fishman MA Financial Resource Worker 01/06/24 03/19/24 Melvin Thalia, [facility] [address] [place], [place] [phone] Pharmacist Pharmacy 01/26/24 Gaurav Valenzuela APRN FISH HOUSEKEEPER 606 [facility] 106 [place], [place] 271804 Assigned Sleep Provider 02/04/24 Manuel Ahn OD 6341 [place], [place] 622652 Assigned Surgical Provider 02/04/24 06/02/24 Debbie Mann MD [address] [address] Cardiovascular Disease 02/24/24 Hakeem Chacko MBBS 2945 [place], [place] [phone] Assigned Rheumatology Provider 04/05/24 Debbie Mann MD 1600 [facility] 200 [place], [place] [phone] Assigned Heart and Vascular Provider 05/06/24 Timothy Tejada MD 6341 [place] [phone] Ophthalmology 05/29/24 Timothy Tejada MD 6341 [place] [phone] Assigned Surgical Provider 06/03/24 Elsie Roberts APRN FISH HOUSEKEEPER 1600 [facility] [address] [place] [address] Nurse Practitioner Pain Medicine 10/16/24 Cristy Morton MD 1440 [facility] [place] [address] Assigned Pediatric Specialist Provider 11/03/24 Georgie Anguiano PA-C [address] [place] [address] Assigned Neuroscience Provider 12/04/24 documented as of this encounter
--- OUTSIDE RECORDS SUMMARY | 2024-12-06 00:22 | XMS_ITS | Encounter Summary ---
Author Organization [facility] Address [address] [place] [address] Care Team Providers Care Senior Sas Developer Name Role Phone Va Glez MD Primary Care Provider [phone] Va Glez MD Unavailable Christy CampuzanoC Unavailable [phone] Hans Cannon MD Unavailable [phone] Estella Hassan [facility] Unavailable [phone] Josh Cordero MD, Madhuri Unavailable [phone] John Webb MD Unavailable John Webb MD Unavailable [phone] Estella Hassan [facility] Unavailable [phone] Lindsay Carey OD Unavailable [phone] Richard Kam MD Unavailable Gaby Vila DO Unavailable Rosemarie Mcdowell RN Unavailable [phone] Mitra Kendall ENGINE EMISSION TECHNICIAN Unavailable [phone] Lizet Mann PA-C Unavailable Ravi Brownlee MD Unavailable Manuel Ahn OD Unavailable [phone] Thalia Charles [facility] Unavailable [phone] Gaurav Valenzuela FILLING ROOM OPERATOR PROGRAMS MANAGER Unavailable [phone] Debbie Mann MD Unavailable [phone] Hakeem Chacko MB Unavailable Debbie Mann MD Unavailable [phone] Timothy Tejada MD Unavailable [phone] Timothy Tejada MD Unavailable [phone] Elsie Roberts FILLING ROOM OPERATOR PROGRAMS MANAGER Unavailable + Cristy Morton MD Unavailable [phone] Georgie Anguiano PA-C Unavailable [phone] Encounter Details Date Type Department Care Team (Late st Contact Info) Description 10/18/2024 MyC Medical Advice [facility] [address] [address] Ilene Guerra Social History Tobacco Use Types Packs/Day Years [...] re latives? 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 Gender Identity Not on file Sexual Orientation Not on file Occupation Industry Job Start Date Job End Date Not on file Not on file Not on file Not on file documented as of this encounter Plan of Treatment Upcoming Encounters Date Type Department Care Team (Late st Contact Info) Description 12/11/2024 2:10 PM CDT Therapy Visit [place] [address] [place] [address] Shanta Cooper, PT 12/14/2024 11:20 AM CDT Office Visit [address] [address] Lizet Mann PA-C [address] [place] [address] 12/17/2024 2:10 PM CDT Office Visit [facility] [address] [place] [phone] Richard Kam MD [address] [place] [address] 12/19/2024 8:20 AM CDT Therapy Visit [place] [address] [place] [phone] Shanta Cooper, PT 12/24/2024 5:00 PM CDT Therapy Visit [place] [address] [place] [phone] Pattie Casillas, PT 12/25/2024 10:20 AM CDT Therapy Visit [place] [address] [place] [phone] Shanta Cooper, PT 01/03/2025 1:00 PM CDT Office Visit [facility] [address] [place] [phone] Estella Hassan, [facility] [address] [place] [address] 01/03/2025 1:30 PM CDT Office Visit [facility] [address] [place] [phone] [place] [address] [place], [place] [phone] 01/08/2025 1:15 PM CDT Office Visit [facility] 2945 [facility] [address] [place] [address] Hakeem Chacko MBBS [address] [place] [address] Scheduled Procedures Name Priority Associated Diagnoses Date/Ti [...] job and will access resources that the [employer] offers. . Sarted new job 4. Continue [...] by household income. 2. I will contact [employer] [facility] to ask about medicare plans and if there are saving programs I qualify for by by calling [phone]. 3. I will see if I am eligible for unemployment after losing my job. I will call [phone] to ask for assistance with unemployment application. 4. I will apply for jobs. I will work with [employer] in finding a job (Empowerment.) 5. I will access [employer] and ask about financial resources (such as [...] I will continue working with therapist at [facility]. 2. I will establish with Psychiatry. Planning to schedule with Ronnie. 3. I will meet with community rotary shear worker helper Manjula Gresham. 4. I will look in to attending an IOP program. I will discuss with my [facility] therapist and number provided for [facility] Behavioral [facility] - [phone] to schedule assessment fr IOP program. 5. I will go to [facility] if I have concerning mental health symptoms. 6. I will access [facility] if needed by calling [phone]. 7. I will consider calling [facility] Adult Mental health intake at [phone]. documented as of this encounter Visit Diagnoses [...] accurate information and submit it to the [facility]. 3. I will update CCC Team at outreach. Health Maintenance Due or Overdue 12/16/2023 Patient expresses financial resource strain 12/13 Mental Health Symptoms Need Improvement 04/05/19 Infection Onset Date Last Indicated Resolved Time Rule Out C-difficile 11/04/2024 11/04/2024 025 1:55 AM CDT Assessment Noted Time PHQ-9 Depression Total Score: 7 09/28/19 25 11:01 AM CDT documented as of this encounter Care Teams Senior Sas Developer Relationship Specialty [place] [address] [place] [address] PCP - General Family Practice 07/11/14 [place] [address] [place] [address] Assigned PCP 12/16/11 Christy Campuzano PA-C [address] [place] [address] 236682 Referring Physician Family Medicine 04/22/20 [place] [address] [place] [address] 563542 Resident Pulmonary Disease 04/22/20 Estella Hassan, [facility] [address] [place] [address] Pharmacist Pharmacist 05/26/20 Elaina Moreno MD 909 [place] [address] Cardiovascular & Thoracic Surgery 08/06/20 John Webb MD [address] 470385 Cardiovascular Disease 08/25/21 John Webb MD [address] 616845 Cardiovascular Disease 08/25/21 Estella Hassan, [facility] [address] [place] [address] Assigned MTM Pharmacist 12/09/21 [place] [address] [place] [address] [place] [address] Ophthalmology 01/29/22 Richard Kam MD [address] [place] [address] 742105 Assigned Musculoskeletal Provider 08/14/22 [place] [address] 658297 Assigned Neuroscience Provider 01/01/23 12/03/24 Rosemarie Mcdowell, RN Furnace Mechanic Diabetes Education 03/17/23 Mitra Kendall, ENGINE EMISSION TECHNICIAN Lead Sweet Potato Disintegrator Primary Care - CC 12/12/23 Lizet Mann PA-C [address] [place] [address] Assigned Cancer Care Provider 01/04/24 Ravi Brownlee MD [address] [place] [address] Assigned Pulmonology Provider 01/04/24 Manuel Ahn OD [address]341 [place] [address] Assembler Adjuster 01/05/24 Thalia Charles [facility] [address] [place], [place] [phone] Pharmacist Pharmacy 01/26/24 Gaurav Valenzuela APRN PROGRAMS MANAGER 606 [facility] 106 [place] [address] Assigned Sleep Provider 02/04/24 Debbie Mann MD 1600 [facility] 200 [place], [place] [phone] Cardiovascular Disease 02/24/24 Hakeem Chacko MBBS 2945 [place], [place] [phone] Assigned Rheumatology Provider 04/05/24 Debbie Mann MD 1600 [facility] 200 [place], [place] [phone] Assigned Heart and Vascular Provider 05/06/24 Timothy Tejada MD 6341 [facility] [place] [phone] Ophthalmology 05/29/24 Timothy Tejada MD 6341 [place] [phone] Assigned Surgical Provider 06/03/24 Elsie Roberts APRN PROGRAMS MANAGER 1600 [facility] [address] [address] Nurse Practitioner Pain Medicine 10/16/24 Cristy Morton MD [facility] [address] [phone] Assigned Pediatric Specialist Provider 11/03/24 Georgie Anguiano PA-C [address] 587185 Assigned Neuroscience Provider 12/04/24 documented as of this encounter
--- OUTSIDE RECORDS SUMMARY | 2024-12-06 00:22 | XMS_ITS | Encounter Summary ---
Author Organization [facility] Address [address] [place] [address] Care Team Providers Care Binder Stripper Hand Name Role Phone Va Glez MD Primary Care Provider [phone] Va Glez MD Unavailable Kerry Bernal RN Unavailable Ravi Barillas DPM Unavailable [phone] Christy Campuzano PA-C Unavailable [phone] Hans Cannon MD Unavailable [phone] Mitra Kendall AERONAUTICAL ENGINEERING TEACHER Unavailable [phone] Burt Jovel MD Unavailable Estella Hassan [facility] Unavailable Reji Chavez MD Unavailable Josh Cordero MD, Madhuri Unavailable [phone] Josh Cordero MD, Madhuri Unavailable [phone] Kelsi Hassan MD Unavailable [phone] John Webb MD Unavailable [phone] John Webb MD Unavailable Estella Hassan [facility] Unavailable Nav Hughes MD Unavailable [phone] Cassandra Mendoza MD Unavailable Estella Hassan RPH Unavailable Mitra Kendall AERONAUTICAL ENGINEERING TEACHER Unavailable Aurelio Lindsay Kenzie OD Unavailable Ravi Brownlee MD Unavailable Kye Arabella MA Unavailable [phone] Richard Kam MD Unavailable Marisol Patel RPH Unavailable Gaby Vila DO Unavailable Rosemarie Mcdowell RN Unavailable Ravi Brownlee MD Unavailable Mitra Kendall AERONAUTICAL ENGINEERING TEACHER Unavailable Lizet MannC Unavailable Ravi Brownlee MD Unavailable Nav Hughes MD Unavailable [phone] Manuel Ahn OD Unavailable Kye Arabella MA Unavailable [phone] Thalia Charles RP Unavailable Gaurav Valenzuela APRN METERMAN Unavailable Manuel Ahn OD Unavailable Debbie Mann MD Unavailable Hakeem Chacko Unavailable Debbie Mann MD Unavailable Timothy Tejada MD Unavailable Timothy Tejada MD Unavailable Elsie Roberts APRN METERMAN Unavailable + Cristy Morton MD Unavailable Georgie Anguiano PA-C Unavailable Encounter Details Date Type Department Care Team (Late st Contact Info) Description 08/20/2020 MyC Medical Advice [facility] Registration [facility] Social History Tobacco Use Types Packs/Day Years [...] points; Administer PHQ-9 if positive 1 08/06/2020 [facility] - Occupational Stress [...] on file 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 Gender Identity Not on file Sexual [...] Description 12/11/2024 2:10 PM CDT Therapy Visit [facility] [address] [phone] Shanta Cooper, PT 12/14/2024 11:20 AM CDT Office Visit [facility] [id number] [place] [address] [place] [phone] Lizet Mann PA-C [address] [place], [place] [address] [place] [address] 12/17/2024 2:10 PM CDT Office Visit [facility] [address] 4th [place] [address] Richard Kam MD [address] [place] [address] 12/19/2024 8:20 AM CDT Therapy Visit [address] [place] [address] Shanta Cooper, PT 12/24/2024 5:00 PM CDT Therapy Visit [address] [phone] Pattie Casillas, PT 12/25/2024 10:20 AM CDT Therapy Visit [address] [address] Shanta Cooper, PT 01/03/2025 1:00 PM CDT Office Visit [address] [phone] Estella Hassan, [facility] 30[address] [place] [address] 01/03/2025 1:30 PM CDT Office Visit [address] [phone] Va Glez MD [address] [place] [address] 01/08/2025 1:15 PM CDT Office Visit [facility] [address] [place] [phone] Hakeem Chacko MBBS [address] [place] [address] Scheduled Procedures Name Priority Associated Diagnoses Date/Ti me INJECTION, EPIDURAL, TRANSFO RAMINAL APPROACH Cervical radiculitis RELEASE, CARPAL TUNNEL, ENDOSCOPIC Right carpal tunnel syndrome documented as of this encounter Visit Diagnoses Not on filedocumented in this encounter Additional Health Concerns Infection Onset Date Last Indicated Resolved Time Rule Out COVID-19 06/22/2021 06/22/2021 06/23/2021 8:58 PM CDT Rule Out COVID-19 01/22/2022 01/22/2022 01/24/2022 1:05 PM BRICK WASHER Rule Out COVID-19 01/25/2022 01/25/2022 01/25/2022 5:21 AM BRICK WASHER Influenza 01/25/2022 01/25/2022 02/01/2022 11:4 1 PM BRICK WASHER Rule Out COVID-19 07/29/2022 07/29/2022 07/31/2022 11:17 AM CDT Rule Out COVID-19 03/23/2023 03/23/2023 03/23/2023 6:30 PM BRICK WASHER COVID-19 03/23/2023 03/23/2023 04/13/2023 11:4 0 PM BRICK WASHER Rule Out COVID-19 06/05/2023 06/05/2023 06/05/2023 5:53 PM CDT Rule Out COVID-19 11/06/2023 11/06/2023 11/06/2023 11:05 PM CDT Rule Out COVID-19 11/20/2023 11/20/2023 11/20/2023 6:43 PM CDT Rule Out COVID-19 12/27/2023 12/27/2023 12/29/2023 1:37 PM CDT Rule Out COVID-19 03/01/2024 03/01/2024 03/01/2024 1:11 PM BRICK WASHER Rule Out COVID-19 07/18/2024 07/18/2024 07/19/2024 5:52 PM CDT Rule Out COVID-19 10/17/2024 10/17/2024 10/17/2024 11:23 PM CDT Rule Out C-difficile 11/04/2024 11/04/2024 025 1:55 AM CDT Assessment Noted Time PHQ-9 Depression Total Score: 7 08/08/19 21 7:03 AM CDT documented as of this encounter Care Teams Binder Stripper Hand Relationship Specialty [place] [address] [place] [address] PCP - General Family Practice 07/11/14 [place] [address] [place] [address] Assigned PCP 12/16/11 Kerry Bernal, INOCENCIO Personal Advocate & Liaison (PAL) 01/08/19 07/10/23 Ravi Barillas DPM [address] [facility] [address] [place], [place] [address] Assigned Musculoskeletal Provider 03/23/20 10/30/21 Christy Campuzano PA-C [address] [place] [address] 772512 Referring Physician Family Medicine 04/22/20 Hans Cannon MD [address] [place] [address] Resident Pulmonary Disease 04/22/20 Mitra Kendall, AERONAUTICAL ENGINEERING TEACHER Lead Rubber Compounder Primary Care - CC 01/08/1901/12 Burt Jovel MD Internal Medicine 05/08/20 12/13/23 Estella Hassan, [facility] [address] [place], [place] 818716 Pharmacist Pharmacist 05/26/20 Reji Chavez MD [address] [place] [phone] Assigned Heart and Vascular Provider 05/18/20 10/30/21 Elaina Moreno MD 909 [place] [address] Assigned Surgical Provider 05/18/20 11/19/22 Elaina Moreno MD [address] [place] [address] Cardiovascular & Thoracic Surgery 08/06/20 Kelsi Hassan MD [address] [place] [address] Assigned Pulmonology Provider 06/28/21 02/05/22 John Webb MD [address] [address] Cardiovascular Disease 08/25/21 John Webb MD [address] [address] Cardiovascular Disease 08/25/21 Estella Hassan, [facility] [address] [place] [address] Assigned MTM Pharmacist 09/05/21 Nav Hughes MD [address] [place] [address] Assigned Heart and Vascular Provider 10/31/21 09/03/23 Cassandra Mendoza MD ORTHOPAEDIC SURGERY [address] [address] Assigned Musculoskeletal Provider 10/31/21 08/13/22 Estella Hassan, [facility] [address] [place] [address] Assigned MTM Pharmacist 12/09/21 Mitra Kendall, [facility] Lead Rubber Compounder Primary Care - CC 01/26/2210/28 [place] [address] [place] [address] [address] [address] Ophthalmology 01/29/22 Ravi Brownlee MD [address] [place] [address] 276 [place], [place] 805735 Assigned Pulmonology Provider 02/06/22 09/03/23 Arabella Fishman MA Financial Resource Worker 02/22/22 02/23/22 Richard Kam MD [address] [place] [address] Assigned Musculoskeletal Provider 08/14/22 Marisol Patel, [facility] [address] [phone] Pharmacist Pharmacist 11/22/22 01/09/23 [place] [address] [address] Assigned Neuroscience Provider 01/01/23 12/03/24 Rosemarie Mcdowell, RN Legal Billing Specialist Diabetes Education 03/17/23 Ravi Brownlee MD [address] [address] Assigned Heart and Vascular Provider 09/04/23 01/03/24 Mitra Kendall, [facility] Lead Rubber Compounder Primary Care - CC 12/12/23 Lizet Mann PA-C [address] [place] [address] Assigned Cancer Care Provider 01/04/24 Ravi Brownlee MD [address] [address] Assigned Pulmonology Provider 01/04/24 Nav Hughes MD 6405 [facility] [place] [address] Assigned Heart and Vascular Provider 01/04/24 05/05/24 Manuel Ahn OD 6341 [facility] [place] [address] Parcel Contractor 01/05/24 Arabella Fishman MA Financial Resource Worker 01/06/24 03/19/24 Thalia Charles [facility] [address] [place], [place] [phone] Pharmacist Pharmacy 01/26/24 Gaurav Valenzuela APRN METERMAN 606 [facility] 106 [place] [address] Assigned Sleep Provider 02/04/24 Manuel Ahn OD 6341 [place], [place] 261692 Assigned Surgical Provider 02/04/24 06/02/24 Debbie Mann MD 1600 [facility] 200 [place], [place] [phone] Cardiovascular Disease 02/24/24 Hakeem Chacko MBBS 2945 [place], [place] [phone] Assigned Rheumatology Provider 04/05/24 Debbie Mann MD 1600 [facility] 200 [place], [place] [phone] Assigned Heart and Vascular Provider 05/06/24 Timothy Tejada MD 6341 [place] [address] Ophthalmology 05/29/24 Timothy Tejada MD 6341 [place] [phone] Assigned Surgical Provider 06/03/24 Elsie Roberts APRN METERMAN 1600 [facility] 101 [place], [place] [phone] Nurse Practitioner Pain Medicine 10/16/24 Cristy Morton MD 1440 [facility] [address] [phone] Assigned Pediatric Specialist Provider 11/03/24 Georgie Anguiano PA-C [address] [address] Assigned Neuroscience Provider 12/04/24 documented as of this encounter
--- OUTSIDE RECORDS SUMMARY | 2024-12-06 00:22 | XMS_ITS | Encounter Summary ---
Author Organization [facility] Address [address] [place] [address] Care Team Providers Care Data Input Clerk Name Role Phone Va Glez MD Primary Care Provider Va Glez MD Unavailable Kerry Bernal RN Unavailable Ravi Barillas DPM Unavailable [phone] Christy Campuzano PA-C Unavailable Hans Cannon MD Unavailable Mitra Kendall SLEEVE SETTER Unavailable [phone] Burt Jovel MD Unavailable Estella Hassan [facility] Unavailable Reji Chavez MD Unavailable Josh Cordero MD, Madhuri Unavailable [phone] Josh Cordero MD, Madhuri Unavailable [phone] Kelsi Hassan MD Unavailable [phone] John Webb MD Unavailable [phone] John Webb MD Unavailable Estella Hassan [facility] Unavailable [phone] Nav Hughes MD Unavailable [phone] Cassandra Mendoza MD Unavailable Estella Hassan RPH Unavailable Mitra Kendall SLEEVE SETTER Unavailable Aurelio Lindsay Kenzie OD Unavailable Ravi Brownlee MD Unavailable Kye Arabella MA Unavailable [phone] Richard Kam MD Unavailable Marisol Patel RPH Unavailable Gaby Vila DO Unavailable Rosemarie Mcdowell RN Unavailable Ravi Brownlee MD Unavailable Mitra Kendall SLEEVE SETTER Unavailable Lizet MannC Unavailable Ravi Brownlee MD Unavailable Nav Hughes MD Unavailable [phone] Manuel Ahn OD Unavailable Kye Arabella MA Unavailable [phone] Thalia Charles RP Unavailable Gaurav Valenzuela APRN TIMBER GRADER Unavailable Manuel Ahn OD Unavailable Debbie Mann MD Unavailable Hakeem Chacko Unavailable Debbie Mann MD Unavailable Timothy Tejada MD Unavailable Timothy Tejada MD Unavailable Elsie Roberts APRN TIMBER GRADER Unavailable + Cristy Morton MD Unavailable Georgie Anguiano PA-C Unavailable [phone] Reason for Referral * Care Coordination (Routine) - Closed Specialty Diagnoses / Procedures Referred By Mireille gonzalez Referred To Contact Diagnoses Mediastinal cyst John Medina, [facility] [address] [place] [address] Phone: tel: fax: Referral ID Status Reason Start Date Expiration Date Visits Re quested Visits Authorized [id number] Closed 08/22/2020 08/22/2021 1 1 Comments Services are provided by a Dairy Farm Worker for people with complex needs such as: medical, social, or financial troubles. The Dairy Farm Worker works with the patient and their Primary [...] Contact Info) Description 08/22/2020 MyC Medical Advice [address] [address] Estella Hassan, [facility] [address] [place], [place] [id number] Mediastinal cyst (Primary Dx) Social History Tobacco [...] points; Administer PHQ-9 if positive 1 08/06/2020 [facility] [place] [facility] - Occupational [...] on file Legal Sex Male 3:29 AM MORTGAGE ADVISOR Gender Identity Not on file Sexual [...] Description 12/11/2024 2:10 PM CDT Therapy Visit [place] [address] [place] [phone] Shanta Cooper, PT 12/14/2024 11:20 AM CDT Office Visit [facility] [address] [place] [phone] Lizet Mann PA-C [address] [place] [address] 12/17/2024 2:10 PM CDT Office Visit [facility] Orthopedic [address] [place] [phone] Richard Kam MD [address] [place] [address] 12/19/2024 8:20 AM CDT Therapy Visit [place] [address] [place] [phone] Shanta Cooper, PT 12/24/2024 5:00 PM CDT Therapy Visit [place] [address] [place] [phone] Pattie Casillas, PT 12/25/2024 10:20 AM CDT Therapy Visit [address] [place] [address] Shanta Cooper, MOIZ 01/03/2025 1:00 PM CDT Office Visit [facility] [address] [place] [phone] Estella Hassan, [facility] [address] [place] [address] 01/03/2025 1:30 PM CDT Office Visit [facility] [address] [place] [phone] [place] [address] [place], [place] [phone] 01/08/2025 1:15 PM CDT Office Visit [facility] 2945 [facility] 200 [place] [address] Hakeem Chacko MBBS 2945 [place] [address] Scheduled Procedures Name Priority Associated Diagnoses Date/Ti [...] Out COVID-19 01/22/2022 01/22/2022 01/24/2022 1:05 PM MORTGAGE ADVISOR Rule Out COVID-19 01/25/2022 01/25/2022 01/25/2022 5:21 AM MORTGAGE ADVISOR Influenza 01/25/2022 01/25/2022 02/01/2022 11:4 1 PM MORTGAGE ADVISOR Rule Out COVID-19 07/29/2022 07/29/2022 07/31/2022 11:17 AM CDT Rule Out COVID-19 03/23/2023 03/23/2023 03/23/2023 6:30 PM MORTGAGE ADVISOR COVID-19 03/23/2023 03/23/2023 04/13/2023 11:4 0 PM MORTGAGE ADVISOR Rule Out COVID-19 06/05/2023 06/05/2023 06/05/2023 5:53 PM CDT Rule Out COVID-19 11/06/2023 11/06/2023 11/06/2023 11:05 PM CDT Rule Out COVID-19 11/20/2023 11/20/2023 11/20/2023 6:43 PM CDT Rule Out COVID-19 12/27/2023 12/27/2023 12/29/2023 1:37 PM CDT Rule Out COVID-19 03/01/2024 03/01/2024 03/01/2024 1:11 PM MORTGAGE ADVISOR Rule Out COVID-19 07/18/2024 07/18/2024 07/19/2024 5:52 PM CDT Rule Out COVID-19 10/17/2024 10/17/2024 10/17/2024 11:23 PM CDT Rule Out C-difficile 11/04/2024 11/04/2024 025 1:55 AM CDT Assessment Noted Time PHQ-9 Depression Total Score: 7 08/08/19 21 7:03 AM CDT documented as of this encounter Care Teams Data Input Clerk Relationship Specialty [place] [address] [place] [address] PCP - General Family Practice 07/11/14 [place] [address] [place] [address] Assigned PCP 12/16/11 Kerry Bernal RN Personal Advocate & Liaison (PAL) 01/08/19 07/10/23 Ravi Barillas DPM [address] [facility] [address] [place] [address] Assigned Musculoskeletal Provider 03/23/20 10/30/21 Christy Campuzano PA-C [address] [place] [address] 835622 Referring Physician Family Medicine 04/22/20 Hans Cannon MD [address] [place] [address] 853262 Resident Pulmonary Disease 04/22/20 Mitra Kendall, [facility] Lead Dairy Farm Worker Primary Care - CC 01/08/1901/12 Burt Jovel MD Internal Medicine 05/08/20 12/13/23 Estella Hassan, [facility] [address] [place], [place] [phone] Pharmacist Pharmacist 05/26/20 Reji Chavez MD [address] [place] [phone] Assigned Heart and Vascular Provider 05/18/20 10/30/21 Elaina Moreno MD [address] [place] [address] 586575 Assigned Surgical Provider 05/18/20 11/19/22 Elaina Moreno MD 909 [place] [address] Cardiovascular & Thoracic Surgery 08/06/20 Kelsi Hassan MD [address] [place] [address] Assigned Pulmonology Provider 06/28/21 02/05/22 John Webb MD [address] [place] 112[address] Cardiovascular Disease 08/25/21 John Webb MD [address] [place] [address] Cardiovascular Disease 08/25/21 Estella Hassan, [facility] 30[address] [place] [address] Assigned MTM Pharmacist 09/05/21 Nav Hughes MD [address] [place] [address] Assigned Heart and Vascular Provider 10/31/21 09/03/23 Cassandra Mendoza MD ORTHOPAEDIC SURGERY [facility] [address] Assigned Musculoskeletal Provider 10/31/21 08/13/22 Estella Hassan, [facility] [address] [place] [address] Assigned MTM Pharmacist 12/09/21 Mitra Kendall, SLEEVE SETTER Lead Dairy Farm Worker Primary Care - CC 01/26/2210/28 Lindsay Carey OD 3305 [facility] [place] [address] MD Ophthalmology 01/29/22 Ravi Brownlee MD [address] [place] [address] Assigned Pulmonology Provider 02/06/22 09/03/23 Arabella Fishman MA Financial Resource Worker 02/22/22 02/23/22 Richard Kam MD [address] [place] [address] 308165 Assigned Musculoskeletal Provider 08/14/22 Marisol Patel, [facility] 1440 [facility] [place] [place] [id number] Pharmacist Pharmacist 11/22/22 01/09/23 [place] [address] [address] Assigned Neuroscience Provider 01/01/23 12/03/24 Rosemarie Mcdowell, RN Fur Drummer Diabetes Education 03/17/23 Ravi Brownlee MD [address] [place] [address] Assigned Heart and Vascular Provider 09/04/23 01/03/24 Mitra Kendall LSW Lead Dairy Farm Worker Primary Care - CC 12/12/23 Lizet Mann PA-C [address] [place] [address] Assigned Cancer Care Provider 01/04/24 Ravi Brownlee MD [address] [place] [address] 276 [place], [place] 4299[address] Assigned Pulmonology Provider 01/04/24 Nav Hughes MD 6405 [facility]340 [place], [place] 855165 Assigned Heart and Vascular Provider 01/04/24 05/05/24 Manuel Ahn, OD 6341 [place] [address] Crop Specialist 01/05/24 Arabella Fishman MA Financial Resource Worker 01/06/24 03/19/24 Thalia Charles [address] [address] [place], [place] [phone] Pharmacist Pharmacy 01/26/24 Gaurav Valenzuela, BUTTON CUTTER TIMBER GRADER [address] [place] [address] Assigned Sleep Provider 02/04/24 Manuel Ahn, OD 6341 [place] [address] Assigned Surgical Provider 02/04/24 06/02/24 Debbie Mann MD 1600 [facility] 200 [place] [address] Cardiovascular Disease 02/24/24 Hakeem Chacko MBBS 2945 [place] [address] Assigned Rheumatology Provider 04/05/24 Debbie Mann MD 1600 [facility] 200 [place] [address] Assigned Heart and Vascular Provider 05/06/24 Timothy Tejada MD 6341 [place] [address] Ophthalmology 05/29/24 Timothy Tejada MD 6341 [place] [address] Assigned Surgical Provider 06/03/24 Elsie Roberts APRN CNP 1600 [facility] 101 [place] [address] Nurse Practitioner Pain Medicine 10/16/24 [place] [address] [place] [address] [place] [address] Assigned Pediatric Specialist Provider 11/03/24 Georgie Anguiano PA-C 6545 [facility] [address] Assigned Neuroscience Provider 12/04/24 documented as of this encounter
--- OUTSIDE RECORDS SUMMARY | 2024-12-06 00:22 | XMS_ITS | Encounter Summary ---
Author Organization [facility] Address [address] [place] [address] Care Team Providers Care Hot Stone Setter Name Role Phone Va Glez MD Primary Care Provider [phone] Va Glez MD Unavailable Kerry Bernal RN Unavailable [phone] Ravi Barillas DPM Unavailable [phone] Christy Campuzano PA-C Unavailable Hans Cannon MD Unavailable [phone] Mitra Kendall SOAKING PIT OPERATOR Unavailable Burt Jovel MD Unavailable Estella Hassan [facility] Unavailable Reji Chavze MD Unavailable Josh Cordero MD, Madhuri Unavailable [phone] Josh Cordero MD, Madhuri Unavailable [phone] Kelsi Hassan MD Unavailable [phone] John Webb MD Unavailable [phone] John Webb MD Unavailable Estella Hassan [facility] Unavailable [phone] Nav Hughes MD Unavailable [phone] Cassandra Mendoza MD Unavailable Estella Hassan RPH Unavailable Mitra Kendall SOAKING PIT OPERATOR Unavailable Aurelio Lindsay Kenzie OD Unavailable Ravi Brownlee MD Unavailable Kye Arabella MA Unavailable [phone] Richard Kam MD Unavailable Marisol Patel RPH Unavailable Gaby Vila DO Unavailable Rosemarie Mcdowell RN Unavailable Ravi Brownlee MD Unavailable Mitra Kendall SOAKING PIT OPERATOR Unavailable Lizet MannC Unavailable Ravi Brownlee MD Unavailable Nav Hughes MD Unavailable [phone] Manuel Ahn OD Unavailable Kye Arabella MA Unavailable [phone] Thalia Charles RP Unavailable Gaurav Valenzuela APRN SAS ARCHITECT Unavailable Manuel Ahn OD Unavailable Debbie Mann MD Unavailable Hakeem Chacko Unavailable Debbie Mann MD Unavailable Timothy Tejada MD Unavailable Timothy Tejada MD Unavailable Elsie Roberts APRN SAS ARCHITECT Unavailable + Cristy Morton MD Unavailable Georgie Anguiano PA-C Unavailable [phone] Encounter Details Date Type Department Care Team (Late st Contact Info) Description 08/28/2020 MyC Medical Advice [address] [address] Estella Hassan, [facility] [address] [place] [address] Social History Tobacco Use Types Packs/Day Years [...] and Family Not on file 05/31/2019 Attends [employer] Not on file 05/30 Active Member [...] points; Administer PHQ-9 if positive 1 08/06/2020 [facility] ional Health - [...] on file Legal Sex Male 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 BULK SEALER 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 Gender Identity Not on file Sexual [...] Description 12/11/2024 2:10 PM CDT Therapy Visit [facility] [address] [place] [phone] Shanta Cooper, MOIZ 12/14/2024 11:20 AM CDT Office Visit [facility] [address] [place] [phone] Lizet Mann PA-C [address] [facility] [place] [address] 12/17/2024 2:10 PM CDT Office Visit [facility] Orthopedic [facility] 909 [facility] 4th [place] [address] Richard Kam MD 500 [place] [address] 12/19/2024 8:20 AM CDT Therapy Visit [address] [place] [address] Shanta Cooper, PT 12/24/2024 5:00 PM CDT Therapy Visit [address] [address] Pattie Casillas, PT 12/25/2024 10:20 AM CDT Therapy Visit [address] [address] Shanta Cooper, PT 01/03/2025 1:00 PM CDT Office Visit [address] [phone] Estella Hassan, [facility] 30[address] [place] [address] 01/03/2025 1:30 PM CDT Office Visit [address] [phone] Va Glez MD [address] [place] [phone] 01/08/2025 1:15 PM CDT Office Visit [facility] [address] [facility] [address] [place] [phone] Hakeem Chacko MBBS 3535 [place] [address] Scheduled Procedures Name Priority Associated Diagnoses Date/Ti me INJECTION, EPIDURAL, TRANSFO RAMINAL APPROACH Cervical radiculitis RELEASE, CARPAL TUNNEL, ENDOSCOPIC Right carpal tunnel syndrome documented as of this encounter Visit Diagnoses Not on filedocumented in this encounter Additional Health Concerns Infection Onset Date Last Indicated Resolved Time Rule Out COVID-19 06/22/2021 06/22/2021 06/23/2021 8:58 PM CDT Rule Out COVID-19 01/22/2022 01/22/2022 01/24/2022 1:05 PM BULK SEALER OPERATOR Rule Out COVID-19 01/25/2022 01/25/2022 01/25/2022 5:21 AM BULK SEALER OPERATOR Influenza 01/25/2022 01/25/2022 02/01/2022 11:4 1 PM BULK SEALER OPERATOR Rule Out COVID-19 07/29/2022 07/29/2022 07/31/2022 11:17 AM CDT Rule Out COVID-19 03/23/2023 03/23/2023 03/23/2023 6:30 PM BULK SEALER OPERATOR COVID-19 03/23/2023 03/23/2023 04/13/2023 11:4 0 PM BULK SEALER OPERATOR Rule Out COVID-19 06/05/2023 06/05/2023 06/05/2023 5:53 PM CDT Rule Out COVID-19 11/06/2023 11/06/2023 11/06/2023 11:05 PM CDT Rule Out COVID-19 11/20/2023 11/20/2023 11/20/2023 6:43 PM CDT Rule Out COVID-19 12/27/2023 12/27/2023 12/29/2023 1:37 PM CDT Rule Out COVID-19 03/01/2024 03/01/2024 03/01/2024 1:11 PM BULK SEALER OPERATOR Rule Out COVID-19 07/18/2024 07/18/2024 07/19/2024 5:52 PM CDT Rule Out COVID-19 10/17/2024 10/17/2024 10/17/2024 11:23 PM CDT Rule Out C-difficile 11/04/2024 11/04/2024 025 1:55 AM CDT Assessment Noted Time PHQ-9 Depression Total Score: 7 08/08/19 21 7:03 AM CDT documented as of this encounter Care Teams Hot Stone Setter Relationship Specialty [place] [address] [place] [address] PCP - General Family Practice 07/11/14 [place] [address] [place] [address] Assigned PCP 12/16/11 Kerry Bernal RN Personal Advocate & Liaison (PAL) 01/08/19 07/10/23 Ravi Barillas DPM [address] [facility] [address] [place] [address] Assigned Musculoskeletal Provider 03/23/20 10/30/21 Christy Campuzano PA-C [address] [place] [address] 997072 Referring Physician Family Medicine 04/22/20 Hans Cannon MD [address] [place] [address] Resident Pulmonary Disease 04/22/20 Mitra Kendall, SOAKING PIT OPERATOR Lead Gas Line Installer Supervisor Primary Care - CC 01/08/1901/12 Burt Jovel MD Internal Medicine 05/08/20 12/13/23 Estella Hassan, [facility] [address] [place] [address] Pharmacist Pharmacist 05/26/20 Reji Chavez MD [address]405 [facility] [address] [place] [phone] Assigned Heart and Vascular Provider 05/18/20 10/30/21 Elaina Moreno MD [address] [place] [address] Assigned Surgical Provider 05/18/20 11/19/22 Elaina Moreno MD [address] [place] [address] Cardiovascular & Thoracic Surgery 08/06/20 Kelsi Hassan MD [address] [place] [address] Assigned Pulmonology Provider 06/28/21 02/05/22 John Webb MD [address] [address] Cardiovascular Disease 08/25/21 John Webb MD [address] 850215 Cardiovascular Disease 08/25/21 Estella Hassan, [facility] [address] [place] [address] Assigned MTM Pharmacist 09/05/21 Nav Hughes MD [address] [place] [address] Assigned Heart and Vascular Provider 10/31/21 09/03/23 Cassandra Mendoza MD ORTHOPAEDIC SURGERY [facility] [address] [address] Assigned Musculoskeletal Provider 10/31/21 08/13/22 Estella Hassan, [facility] [address] [place] [address] Assigned MTM Pharmacist 12/09/21 Mitra Kendall, [facility] Lead Gas Line Installer Supervisor Primary Care - CC 01/26/2210/28 Lindsay Carey OD 3[address] [facility] [address] [place] [address] Ophthalmology 01/29/22 Ravi Brownlee MD [address] [place] [address] Assigned Pulmonology Provider 02/06/22 09/03/23 Arabella Fishman MA Financial Resource Worker 02/22/22 02/23/22 Richard Kam MD [address] [place] [address] Assigned Musculoskeletal Provider 08/14/22 Marisol Patel, [facility] 1440 [facility] [address] [phone] Pharmacist Pharmacist 11/22/22 01/09/23 [place] [address] [place], [address] [address] Assigned Neuroscience Provider 01/01/23 12/03/24 Rosemarie Mcdowell RN Retail Management Keyholder Diabetes Education 03/17/23 Ravi Brownlee MD [address] [address] Assigned Heart and Vascular Provider 09/04/23 01/03/24 Mitra Kendall, [facility] Lead Gas Line Installer Supervisor Primary Care - CC 12/12/23 Lizet Mann PA-C [address] [place] [address] [place] [address] Assigned Cancer Care Provider 01/04/24 Ravi Brownlee MD [address] [address] Assigned Pulmonology Provider 01/04/24 Nav Hughes MD [address]405 [facility] [address] [place] [address] Assigned Heart and Vascular Provider 01/04/24 05/05/24 Manuel Ahn OD 6341 [place] [address] Director Custom 01/05/24 Arabella Fishman MA Financial Resource Worker 01/06/24 03/19/24 Melvin Thalia, [facility] [address] [place], [place] [phone] Pharmacist Pharmacy 01/26/24 Gaurav Valenzuela APRN SAS ARCHITECT 606 [facility] 106 [place], [place] 985404 Assigned Sleep Provider 02/04/24 Manuel Ahn OD 6341 [place], [place] 278362 Assigned Surgical Provider 02/04/24 06/02/24 Debbie Mann MD [address] [address] Cardiovascular Disease 02/24/24 Hakeem Chacko MBBS 2945 [place], [place] [phone] Assigned Rheumatology Provider 04/05/24 Debbie Mann MD 1600 [facility] 200 [place], [place] [phone] Assigned Heart and Vascular Provider 05/06/24 Timothy Tejada MD 6341 [facility] [place] [phone] Ophthalmology 05/29/24 Timothy Tejada MD 6341 [place] [address] Assigned Surgical Provider 06/03/24 Elsie Roberts APRN SAS ARCHITECT 1600 [facility] [address] [place] [place] [address] Nurse Practitioner Pain Medicine 10/16/24 Cristy Morton MD 1440 [facility] [address] [place] [address] Assigned Pediatric Specialist Provider 11/03/24 Georgie Anguiano PA-C [address] [address] Assigned Neuroscience Provider 12/04/24 documented as of this encounter
--- OUTSIDE RECORDS SUMMARY | 2024-12-06 00:23 | XMS_ITS | Encounter Summary ---
Author Organization [facility] Address [address] [place] [address] Care Team Providers Care Educational Consultant Name Role Phone Va Glez MD Primary Care Provider Va Glez MD Unavailable Kerry Bernal RN Unavailable Ravi Barillas DPM Unavailable [phone] Christy Campuzano PA-C Unavailable [phone] Hans Cannon MD Unavailable Mitra Kendall HYPERION ANALYST Unavailable Burt Jovel MD Unavailable Estella Hassan [facility] Unavailable [phone] Reji Chavez MD Unavailable [phone] Josh Cordero MD, Madhuri Unavailable [phone] Josh Cordero MD, Madhuri Unavailable [phone] Kelsi Hassan MD Unavailable [phone] John Webb MD Unavailable John Webb MD Unavailable Estella Hassan [facility] Unavailable Nav Hughes MD Unavailable [phone] Cassandra Mnedoza MD Unavailable Estella Hassan RPH Unavailable Mitra Kendall HYPERION ANALYST Unavailable Aurelio Lindsay Kenzie OD Unavailable Ravi Brownlee MD Unavailable Kye Arabella MA Unavailable [phone] Richard Kam MD Unavailable Marisol Patel RPH Unavailable Gaby Vila DO Unavailable Rosemarie Mcdowell RN Unavailable Ravi Brownlee MD Unavailable Mitra Kendall HYPERION ANALYST Unavailable Lizet MannC Unavailable Ravi Brownlee MD Unavailable Nav Hughes MD Unavailable [phone] Manuel Ahn OD Unavailable Kye Arabella MA Unavailable [phone] Thalia Charles RP Unavailable Gaurav Valnezuela APRN APPEALS SPECIALIST Unavailable Manuel Ahn OD Unavailable Debbie Mann MD Unavailable Hakeem Chacko Unavailable Debbie Mann MD Unavailable Timothy Tejada MD Unavailable Timothy Tejada MD Unavailable Elsie Roberts APRN APPEALS SPECIALIST Unavailable + Cristy Morton MD Unavailable Georgie Anguiano PA-C Unavailable [phone] Encounter Details Date Type Department Care Team (Late st Contact Info) Description 08/29/2020 MyC Medical Advice [facility] [address] [place] [address] Marian Agustin APRN LACQUER PIN PRESS OPERATOR [address] [facility] [address] [facility] [address] [place] [address] Social History Tobacco Use Types [...] points; Administer PHQ-9 if positive 1 08/06/2020 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 Gender Identity Not on file Sexual [...] Description 12/11/2024 2:10 PM CDT Therapy Visit [facility] [address] [place] [phone] Shanta Cooper, MOIZ 12/14/2024 11:20 AM CDT Office Visit [facility] [address] [place] [address] Lizet Mann PA-C [address] [place] [address] 12/17/2024 2:10 PM CDT Office Visit [facility] Orth[facility] [address] [facility] 4th [place] [phone] Richard Kam MD 500 [place] [address] 12/19/2024 8:20 AM CDT Therapy Visit [address] [place] [address] Shanta Cooper, PT 12/24/2024 5:00 PM CDT Therapy Visit [address] [address] Pattie Casillas, PT 12/25/2024 10:20 AM CDT Therapy Visit [address] [address] Shanta Cooper, PT 01/03/2025 1:00 PM CDT Office Visit [address] [phone] Estella Hassan, [facility] [address] [place] [address] 01/03/2025 1:30 PM CDT Office Visit [address] [phone] Va Glez MD [address] [place] [id number] 01/08/2025 1:15 PM CDT Office Visit [facility] [address] [facility] [address] [place] [phone] Hakeem Chacko MBBS [address] [place] [address] Scheduled Procedures Name Priority Associated Diagnoses Date/Ti me INJECTION, EPIDURAL, TRANSFO RAMINAL APPROACH Cervical radiculitis RELEASE, CARPAL TUNNEL, ENDOSCOPIC Right carpal tunnel syndrome documented as of this encounter Visit Diagnoses Not on filedocumented in this encounter Additional Health Concerns Infection Onset Date Last Indicated Resolved Time Rule Out COVID-19 06/22/2021 06/22/2021 06/23/2021 8:58 PM CDT Rule Out COVID-19 01/22/2022 01/22/2022 01/24/2022 1:05 PM CAREER TECHNICAL COUNSELOR Rule Out COVID-19 01/25/2022 01/25/2022 01/25/2022 5:21 AM CAREER TECHNICAL COUNSELOR Influenza 01/25/2022 01/25/2022 02/01/2022 11:4 1 PM CAREER TECHNICAL COUNSELOR Rule Out COVID-19 07/29/2022 07/29/2022 07/31/2022 11:17 AM CDT Rule Out COVID-19 03/23/2023 03/23/2023 03/23/2023 6:30 PM CAREER TECHNICAL COUNSELOR COVID-19 03/23/2023 03/23/2023 04/13/2023 11:4 0 PM CAREER TECHNICAL COUNSELOR Rule Out COVID-19 06/05/2023 06/05/2023 06/05/2023 5:53 PM CDT Rule Out COVID-19 11/06/2023 11/06/2023 11/06/2023 11:05 PM CDT Rule Out COVID-19 11/20/2023 11/20/2023 11/20/2023 6:43 PM CDT Rule Out COVID-19 12/27/2023 12/27/2023 12/29/2023 1:37 PM CDT Rule Out COVID-19 03/01/2024 03/01/2024 03/01/2024 1:11 PM CAREER TECHNICAL COUNSELOR Rule Out COVID-19 07/18/2024 07/18/2024 07/19/2024 5:52 PM CDT Rule Out COVID-19 10/17/2024 10/17/2024 10/17/2024 11:23 PM CDT Rule Out C-difficile 11/04/2024 11/04/2024 025 1:55 AM CDT Assessment Noted Time PHQ-9 Depression Total Score: 7 08/08/19 21 7:03 AM CDT documented as of this encounter Care Teams Educational Consultant Relationship Specialty [place] [address] [place] [address] PCP - General Family Practice 07/11/14 [place] [address] [place] [address] Assigned PCP 12/16/11 Kerry Bernal RN Personal Advocate & Liaison (PAL) 01/08/19 07/10/23 Ravi Barillas DPM [address] [id number] Assigned Musculoskeletal Provider 03/23/20 10/30/21 Christy Campuzano PA-C [address] [place] [address] [id number] Referring Physician Family Medicine 04/22/20 Hans Cannon MD [address] [place] [address] Resident Pulmonary Disease 04/22/20 Mitra Kendall, HYPERION ANALYST Lead Imaging Clerk Primary Care - CC 01/08/1901/12 Burt Jovel MD Internal Medicine 05/08/20 12/13/23 Estella Hassan, [facility] [address] [place] [address] Pharmacist Pharmacist 05/26/20 Reji Chavez MD 6[address] [facility] [place] [address] [phone] Assigned Heart and Vascular Provider 05/18/20 10/30/21 Elaina Moreno MD [address] [place] [address] Assigned Surgical Provider 05/18/20 11/19/22 Elaina Moreno MD [address] [place] [address] Cardiovascular & Thoracic Surgery 08/06/20 Kelsi Hassan MD [address] [place], [place] [address] [place] [address] Assigned Pulmonology Provider 06/28/21 02/05/22 John Webb MD [address] [place] [address] Cardiovascular Disease 08/25/21 John Webb MD [address] 848505 Cardiovascular Disease 08/25/21 Estella Hassan [facility] [address] [place] [address] Assigned MTM Pharmacist 09/05/21 Nav Hughes MD [address] [place] [address] Assigned Heart and Vascular Provider 10/31/21 09/03/23 Cassandra Mendoza MD ORTHOPAEDIC SURGERY [facility] [address] [address] Assigned Musculoskeletal Provider 10/31/21 08/13/22 Estella Hassan, [facility] [address] [place] [address] Assigned MTM Pharmacist 12/09/21 Mitra Kendall, [facility] Lead Imaging Clerk Primary Care - CC 01/26/2210/28 Lindsay Carey OD [address] [place] [address] [place] [address] Ophthalmology 01/29/22 Ravi Brownlee MD [address] [address] Assigned Pulmonology Provider 02/06/22 09/03/23 Arabella Fishman MA Financial Resource Worker 02/22/22 02/23/22 Richard Kam MD 500 [place] [address] Assigned Musculoskeletal Provider 08/14/22 Marisol Patel, [facility] [address] [id number] Pharmacist Pharmacist 11/22/22 01/09/23 [place] [address] [place] [address] [address] Assigned Neuroscience Provider 01/01/23 12/03/24 Rosemarie Mcdowell RN Ham Facer Diabetes Education 03/17/23 Ravi Brownlee MD [address] 383675 Assigned Heart and Vascular Provider 09/04/23 01/03/24 Mitra Kendall, [facility] Lead Imaging Clerk Primary Care - CC 12/12/23 Lizet Mann PA-C [address] [place], [place] [address] Assigned Cancer Care Provider 01/04/24 Ravi Brownlee MD [address] [place] [address] Assigned Pulmonology Provider 01/04/24 Nav Hughes MD 6405 [facility] [address] [place] [address] Assigned Heart and Vascular Provider 01/04/24 05/05/24 Manuel Ahn OD [address] [facility] [place] [address] Laborer Shellfish Processing 01/05/24 Arabella Fishman MA Financial Resource Worker 01/06/24 03/19/24 Melvin Thalia, [facility] [address] [place], [place] [phone] Pharmacist Pharmacy 01/26/24 Gaurav Valenzuela APRN APPEALS SPECIALIST [address] [facility] 106 [place], [place] 876474 Assigned Sleep Provider 02/04/24 Manuel Ahn OD 6341 [place], [place] 450512 Assigned Surgical Provider 02/04/24 06/02/24 Debbie Mann MD [address] [address] Cardiovascular Disease 02/24/24 Hakeem Chacko MBBS [address] [place] [address] Assigned Rheumatology Provider 04/05/24 Debbie Mann MD [address] [phone] Assigned Heart and Vascular Provider 05/06/24 Timothy Tejada MD 6[address] [facility] [place] [phone] Ophthalmology 05/29/24 Timothy Tejada MD [address] [place] [address] Assigned Surgical Provider 06/03/24 Elsie Roberts APRN APPEALS SPECIALIST 1600 [facility] [address] [place] [address] Nurse Practitioner Pain Medicine 10/16/24 Cristy Morton MD [facility]0 [facility] [place] [id number] Assigned Pediatric Specialist Provider 11/03/24 Georgie Anguiano PA-C [address] 118965 Assigned Neuroscience Provider 12/04/24 documented as of this encounter
--- OUTSIDE RECORDS SUMMARY | 2024-12-06 00:23 | XMS_ITS | Encounter Summary ---
Author Organization [facility] Address [address] [place] [address] Care Team Providers Care Assembly Machine Offbearer Name Role Phone Va Glez MD Primary Care Provider [phone] Va Glez MD Unavailable Christy Campuzano PAUniqueC Unavailable [phone] Hans Cannon MD Unavailable [phone] Estella Hassan [facility] Unavailable [phone] Josh Cordero MD, Madhuri Unavailable [phone] John Webb MD Unavailable John Webb MD Unavailable Estella Hassan [facility] Unavailable [phone] Lindsay Carey OD Unavailable Richard Kam MD Unavailable Gaby Vila DO Unavailable Rosemarie Mcdowell RN Unavailable Mitra Kendall PATIENT CARE SECRETARY Unavailable [phone] Lizet Oropeza PA-C Unavailable [phone] Ravi Brownlee MD Unavailable Nav Hughes MD Unavailable [phone] Dayday Ahnen Kunal OD Unavailable Thalia Charles [facility] Unavailable [phone] Gaurav Vlaenzuela TRAIN ANNOUNCER FLAT GRINDER OPERATOR Unavailable [phone] Manuel Ahn Kunal OD Unavailable [phone] Debbie Oropeza MD Unavailable [phone] Hakeem Chacko MB Unavailable Debbie Oropeza MD Unavailable [phone] Timothy Tejada MD Unavailable [phone] Timothy Tejada MD Unavailable [phone] Elsie Roberts TRAIN ANNOUNCER FLAT GRINDER OPERATOR Unavailable + Cristy Motron MD Unavailable [phone] Georgie Anguiano PA-C Unavailable [phone] Reason for Visit * Reason Onset Date Comments Refill Request 04/11/2024 budesonide (PULM ICORT) 0.5 MG/2ML neb solution Encounter Details Date Type Department Care Team (Late st Contact Info) Description 04/11/2024 Refill [facility] Specialty [address] [address] Lizet Oropeza PA-C [address] [place] [address] Refill Request (budesonide (PULMICORT) 0.5 MG/2ML neb solution) Social History Tobacco Use Types [...] PHQ-2 Answer Date Recorded PHQ-2 Score 1 03/28/2024 [facility] [place] of Occupat ional Health - Occupational Stress [...] on file Legal Sex Male 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 Medication refill refused. Nato Puga RN on 04/12/2024 at 9:16 AM IAGE AND FAMILY TEACHER * Telephone Encounter - Lizet Oropeza PA-C - 04/12/2024 7:17 AM MARRIAGE AND FAMILY TEACHER Hi, can you assist? I prescribed 1 year supply 12/2023 but received a refill request. Can you confirm with the pharmacy if they need refills? I want to make sure patient is not taking this more than prescribed. Lizet Shaw IAGE AND FAMILY TEACHER * Telephone Encounter - Lizet Oropeza PA-C - 04/11/2024 3:54 PM MARRIAGE AND FAMILY TEACHER Hi, I prescribed 1 year supply 12/2023. Can you confirm with the pharmacy if they need refills? I want to make sure patient is not taking this more than prescribed. Lizet Shaw IAGE AND FAMILY TEACHER * Telephone Encounter - Erin Malik MA - 04/11/2024 10:25 AM CST Last Written Prescription Date: 12/21/23 Last Fill Quantity: 120ml, # refills: 11 Last office visit: 01/13/2024 ; last virtual visit: Visit date not found with prescribing provider: Lizet oropeza Future Office Visit: Next 5 appointments (look out 90 days) May 03, 2024 7:00 AM Pharmacist Visit with Thalia Charles RPH [facility] ([facility] ) [address] [place] [phone] May 22, 2024 11:30 AM (Arrive by 11:10 AM) Provider Visit with Va Glez MD [facility] ([facility] ) [address] [place] [phone] Requested Prescriptions Pending Prescriptions Disp Refills budesonide (PULMICORT) 0.5 MG/2ML neb solution 120 mL 11 Sig: Take 2 mLs (0.5 mg) by nebulization 2 times daily. There is no refill protocol information for this order IAGE AND FAMILY TEACHER documented in this encounter Plan of Treatment Upcoming Encounters Date Type Department Care Team (Late st Contact Info) Description 12/11/2024 2:10 PM CDT Therapy Visit [facility] Services [address] [place] [phone] Shanta Cooper, MOIZ 12/14/2024 11:20 AM CDT Office Visit [address] [phone] Lizet Oropeza PA-C [address] [place] [address] [place] [address] 12/17/2024 2:10 PM CDT Office Visit [facility] Orthopedic [facility] [address] [facility] 4th [place] [phone] Richard Kam MD 500 [place] [address] 12/19/2024 8:20 AM CDT Therapy Visit [address] [address] Shanta Cooper, PT 12/24/2024 5:00 PM CDT Therapy Visit [address] [phone] Pattie Casillas, PT 12/25/2024 10:20 AM CDT Therapy Visit [address] [phone] Shanta Cooper, PT 01/03/2025 1:00 PM CDT Office Visit [address] [phone] Estella Hassan, [facility] [address] [place] [address] 01/03/2025 1:30 PM CDT Office Visit [address] [phone] [place] [address] [place] [address] [phone] 01/08/2025 1:15 PM CDT Office Visit [facility] [address] [facility] [address] [place] [address] Hakeem Chacko MBBS [address] [place] [address] Scheduled Procedures Name Priority Associated Diagnoses Date/Ti [...] for health insurance by looking in to [employer] and talking with a FRW. Completed 3. I will look for a new job and will access resources that the [employer] center offers. . Sarted new job 4. [...] by household income. 2. I will contact [employer] [facility] to ask about medicare plans and if there are saving programs I qualify for by by calling [phone]. 3. I will see if I am eligible for unemployment after losing my job. I will call [phone] to ask for assistance with unemployment application. 4. I will apply for jobs. I will work with [employer] in finding a job (Empowerment.) 5. I will access [employer] and ask about financial resources (such as [...] I will continue working with therapist at [facility]. 2. I will establish with Psychiatry. Planning to schedule with Ronnie. 3. I will meet with community post tensioning ironworker helper Manjula Gresham. 4. I will look in to attending an IOP program. I will discuss with my [place] [facility] therapist and number provided for [facility] Behavioral Access - [phone] to schedule assessment fr IOP program. 5. I will go to [facility] if I have concerning mental health symptoms. 6. I will access [facility] Crisis if needed by calling [phone]. 7. I will consider calling [facility] Adult Mental health intake at [phone]. documented as of this encounter Visit Diagnoses [...] accurate information and submit it to the [facility]. 3. I will update CCC Team [...] Noted Time PHQ-9 Depression Total Score: 4 03/28/19 25 2:25 PM MARRIAGE AND FAMILY TEACHER documented as of this encounter Care Teams Assembly Machine Offbearer Relationship Specialty [place] [address] [place] [address] PCP - General Family Practice 07/11/14 [place] [address] [place], [place] [phone] Assigned PCP 12/16/11 Christy Campuzano PA-C [address] [place] [address] Referring Physician Family Medicine 04/22/20 Hans Cannon MD [address] [place] [address] Resident Pulmonary Disease 04/22/20 Estella Hassan, [facility] [place] [address] Pharmacist Pharmacist 05/26/20 Elaina Moreno MD [address] [place] [address] Cardiovascular & Thoracic Surgery 08/06/20 John Webb MD [address] 356135 Cardiovascular Disease 08/25/21 John Webb MD [address] 128835 Cardiovascular Disease 08/25/21 Estella Hassan, [facility] [place] [address] Assigned MTM Pharmacist 12/09/21 Lindsay Carey, ARA [address] [facility] [place] [address] Ophthalmology 01/29/22 Richard Kam MD 500 [place], [place] 090235 Assigned Musculoskeletal Provider 08/14/22 [place] [address] [place] , [address] 325187 Assigned Neuroscience Provider 01/01/23 12/03/24 Rosemarie Mcdowell, RN Machine Stone Polisher Apprentice Diabetes Education 03/17/23 Mitra Kendall, PATIENT CARE SECRETARY Lead Electron Beam Photo Mask Maker Primary Care - CC 12/12/23 Lizet Oropeza PA-C [address] [place] [address] 443879 Assigned Cancer Care Provider 01/04/24 Ravi Brownlee MD [address] [place] [address] 276 [place], [place] 930275 Assigned Pulmonology Provider 01/04/24 Nav Hughes MD 6405 [facility] [place] [place] 224015 Assigned Heart and Vascular Provider 01/04/24 05/05/24 Manuel Ahn OD 6341 [facility] [address] 869192 Director Visual 01/05/24 Thalia Charles [facility] [address] [place], [place] [phone] Pharmacist Pharmacy 01/26/24 Gaurav Valenzuela APRN FLAT GRINDER OPERATOR 606 [facility] 106 [place], [place] 510004 Assigned Sleep Provider 02/04/24 Manuel Ahn OD 6341 [place], [place] 446482 Assigned Surgical Provider 02/04/24 06/02/24 Debbie Oropeza MD 1600 [facility] 200 [place] [address] Cardiovascular Disease 02/24/24 Hakeem Chacko MBBS [address] [place], [place] 73825109 Assigned Rheumatology Provider 04/05/24 Debbie Oropeza MD 1600 [facility] 200 [place] [address] Assigned Heart and Vascular Provider 05/06/24 Timothy Tejada MD 6341 [place] [phone] Ophthalmology 05/29/24 Timothy Tejada MD 6341 [place] [phone] Assigned Surgical Provider 06/03/24 Elsie Roberts APRN FLAT GRINDER OPERATOR 1600 [facility] [address] [place] [address] Nurse Practitioner Pain Medicine 10/16/24 Cristy Morton MD 1440 [facility] [address] [phone] Assigned Pediatric Specialist Provider 11/03/24 Georgie Anguiano PA-C [address] 982265 Assigned Neuroscience Provider 12/04/24 documented as of this encounter
--- OUTSIDE RECORDS SUMMARY | 2024-12-06 00:23 | XMS_ITS | Encounter Summary ---
Author Organization [place] Address [address] [place] [address] Care Team Providers Care Lisw Name Role Phone Va Glez MD Primary Care Provider [phone] Va Glez MD Unavailable Kerry Bernal RN Unavailable Ravi Barillas DPM Unavailable [phone] Christy Campuzano PA-C Unavailable Hans Cannon MD Unavailable Mitra Kendall SOLUTION DIRECTOR Unavailable [phone] Burt Jovel MD Unavailable Estella Hassan [facility] Unavailable Reji Chavez MD Unavailable [phone] Josh Cordero MD, Madhuri Unavailable [phone] Josh Cordero MD, Madhuri Unavailable [phone] Kelsi Hassan MD Unavailable [phone] John Webb MD Unavailable John Webb MD Unavailable [phone] Estella Hassan [facility] Unavailable Nav Hughes MD Unavailable [phone] Cassandra Mendoza MD Unavailable Estella Hassan RPH Unavailable Mitra Kendall SOLUTION DIRECTOR Unavailable Aurelio Lindsay Kenzie OD Unavailable Ravi Brownlee MD Unavailable Kye Arabella MA Unavailable [phone] Richard Kam MD Unavailable Marisol Patel RPH Unavailable Gaby Vila DO Unavailable Rosemarie Mcdowell RN Unavailable Ravi Brownlee MD Unavailable Mitra Kendall SOLUTION DIRECTOR Unavailable Lizet MannC Unavailable Ravi Brownlee MD Unavailable Nav Hughes MD Unavailable [phone] Manuel Ahn OD Unavailable Kye Arabella MA Unavailable [phone] Thalia Charles RP Unavailable Gaurav Valenzuela APRN GENERAL FARM HAND Unavailable Manuel Ahn OD Unavailable Debbie Mann MD Unavailable Hakeem Chacko Unavailable Debbie Mann MD Unavailable Timothy Tejada MD Unavailable Timothy Tejada MD Unavailable Elsie Roberts APRN GENERAL FARM HAND Unavailable + Cristy Morton MD Unavailable [phone] Georgie Anguiano PA-C Unavailable Encounter Details Date Type Department Care Team (Late st Contact Info) Description 09/09/2020 MyC Medical Advice [address] [address] Estella Hassan, [facility] [address] [place] [address] Social History Tobacco Use Types Packs/Day Years [...] and Family Not on file 05/31/2019 Attends [employer] Not on file 05/30 Active Member [...] points; Administer PHQ-9 if positive 1 08/06/2020 [facility] - [...] on file 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 4th [place] [address] Richard Kam MD [address] [place] [address] 12/19/2024 8:20 AM CDT Therapy Visit [address] [place] [phone] Shanta Cooper, PT 12/24/2024 5:00 PM CDT Therapy Visit [address] [address] Pattie Casillas, PT 12/25/2024 10:20 AM CDT Therapy Visit [address] [address] Shanta Cooper, PT 01/03/2025 1:00 PM CDT Office Visit [address] [phone] Estella Hassan, [facility] [address] [place] [address] 01/03/2025 1:30 PM CDT Office Visit [address] [phone] Va Glez MD [address] [place] [id number] 01/08/2025 1:15 PM CDT Office Visit [facility] [address] [facility] [address] [place] [phone] Hakeem Chacko MBBS [address] [place] [address] Scheduled Procedures Name Priority Associated Diagnoses Date/Ti me INJECTION, EPIDURAL, TRANSFO RAMINAL APPROACH Cervical radiculitis RELEASE, CARPAL TUNNEL, ENDOSCOPIC Right carpal tunnel syndrome documented as of this encounter Visit Diagnoses Not on filedocumented in this encounter Additional Health Concerns Infection Onset Date Last Indicated Resolved Time Rule Out COVID-19 06/22/2021 06/22/2021 06/23/2021 8:58 PM CDT Rule Out COVID-19 01/22/2022 01/22/2022 01/24/2022 1:05 PM INSTRUCTIONAL DESIGNER Rule Out COVID-19 01/25/2022 01/25/2022 01/25/2022 5:21 AM INSTRUCTIONAL DESIGNER Influenza 01/25/2022 01/25/2022 02/01/2022 11:4 1 PM INSTRUCTIONAL DESIGNER Rule Out COVID-19 07/29/2022 07/29/2022 07/31/2022 11:17 AM CDT Rule Out COVID-19 03/23/2023 03/23/2023 03/23/2023 6:30 PM INSTRUCTIONAL DESIGNER COVID-19 03/23/2023 03/23/2023 04/13/2023 11:4 0 PM INSTRUCTIONAL DESIGNER Rule Out COVID-19 06/05/2023 06/05/2023 06/05/2023 5:53 PM CDT Rule Out COVID-19 11/06/2023 11/06/2023 11/06/2023 11:05 PM CDT Rule Out COVID-19 11/20/2023 11/20/2023 11/20/2023 6:43 PM CDT Rule Out COVID-19 12/27/2023 12/27/2023 12/29/2023 1:37 PM CDT Rule Out COVID-19 03/01/2024 03/01/2024 03/01/2024 1:11 PM INSTRUCTIONAL DESIGNER Rule Out COVID-19 07/18/2024 07/18/2024 07/19/2024 5:52 PM CDT Rule Out COVID-19 10/17/2024 10/17/2024 10/17/2024 11:23 PM CDT Rule Out C-difficile 11/04/2024 11/04/2024 025 1:55 AM CDT Assessment Noted Time PHQ-9 Depression Total Score: 7 08/08/19 21 7:03 AM CDT documented as of this encounter Care Teams Lisw Relationship Specialty [place] [address] [place] [address] PCP - General Family Practice 07/11/14 [place] [address] [place] [address] Assigned PCP 12/16/11 Kerry Bernal RN Personal Advocate & Liaison (PAL) 01/08/19 07/10/23 Ravi Barillas DPM [address] [facility] [address] [place] [address] Assigned Musculoskeletal Provider 03/23/20 10/30/21 Christy Campuzano PA-C [address] [place] [address] [id number] Referring Physician Family Medicine 04/22/20 Hnas Cannon MD [address] [place] [address] Resident Pulmonary Disease 04/22/20 Mitra Kendall, SOLUTION DIRECTOR Lead Pattern Generator Operator Primary Care - CC 01/08/1901/12 Burt Jovel MD Internal Medicine 05/08/20 12/13/23 Estella Hassan, [facility] [address] [place] [address] Pharmacist Pharmacist 05/26/20 Reji Chavez MD 6405 [facility] [address] [place] [phone] Assigned Heart and Vascular Provider 05/18/20 10/30/21 Elaina Moreno MD [address] [place] [address] Assigned Surgical Provider 05/18/20 11/19/22 Elaina Moreno MD [address] [place] [address] Cardiovascular & Thoracic Surgery 08/06/20 Kelsi Hassan MD [address] [place] [address] Assigned Pulmonology Provider 06/28/21 02/05/22 John Webb MD [address] [address] Cardiovascular Disease 08/25/21 John Webb MD [address] 904265 Cardiovascular Disease 08/25/21 Estella Hassan, [facility] [address] [place] [address] Assigned MTM Pharmacist 09/05/21 Nav Hughes MD [address] [place] [address] Assigned Heart and Vascular Provider 10/31/21 09/03/23 Cassandra Mendoza MD ORTHOPAEDIC SURGERY [facility] [address] [address] Assigned Musculoskeletal Provider 10/31/21 08/13/22 Estella Hassan, [facility] [address] [place] [address] Assigned MTM Pharmacist 12/09/21 Mitra Kendall, [facility] Lead Pattern Generator Operator Primary Care - CC 01/26/2210/28 Lindsay Carey OD 3[address] [facility] [place] [address] Ophthalmology 01/29/22 Ravi Brownlee MD [address] [place] [address] Assigned Pulmonology Provider 02/06/22 09/03/23 Arabella Fishman MA Financial Resource Worker 02/22/22 02/23/22 Richard Kam MD [address] [place] [address] Assigned Musculoskeletal Provider 08/14/22 Marisol Patel, [facility] 1440 [facility] [place] [phone] Pharmacist Pharmacist 11/22/22 01/09/23 [place] [address] BC PENA, [address] [address] Assigned Neuroscience Provider 01/01/23 12/03/24 Rosemarie Mcdowell RN Detonator Assembler Diabetes Education 03/17/23 Ravi Brownlee MD [address] 196[address] Assigned Heart and Vascular Provider 09/04/23 01/03/24 Mitra Kendall, [facility] Lead Pattern Generator Operator Primary Care - CC 12/12/23 Lizet Mann PA-C [address] [place] [address] [place] [address] Assigned Cancer Care Provider 01/04/24 Ravi Brownlee MD [address] [address] Assigned Pulmonology Provider 01/04/24 Nav Hughes MD 6405 [facility] [address] [place] [address] Assigned Heart and Vascular Provider 01/04/24 05/05/24 Manuel Ahn OD [address] [place] [address] Manager Of Photography 01/05/24 Arabella Fishman MA Financial Resource Worker 01/06/24 03/19/24 Melvin Thalia, [facility] [address] [place], [place] [phone] Pharmacist Pharmacy 01/26/24 Gaurav Valenzuela APRN GENERAL FARM HAND 606 [facility] 106 [place], [place] 612874 Assigned Sleep Provider 02/04/24 Manuel Ahn OD 6341 [place], [place] 696322 Assigned Surgical Provider 02/04/24 06/02/24 Debbie Mann MD [address] [address] Cardiovascular Disease 02/24/24 Hakeem Chacko MBBS 29[address] [place], [place] [phone] Assigned Rheumatology Provider 04/05/24 Debbie Mann MD 1600 [facility] 200 [place], [place] [address] Assigned Heart and Vascular Provider 05/06/24 Timothy Tejada MD 6341 [place] [phone] Ophthalmology 05/29/24 Timothy Tejada MD 6341 [place] [address] Assigned Surgical Provider 06/03/24 Elsie Roberts APRN GENERAL FARM HAND 1600 [facility] [place] [address] [place] [place] [address] Nurse Practitioner Pain Medicine 10/16/24 Cristy Morton MD 1440 [facility] [place] [address] Assigned Pediatric Specialist Provider 11/03/24 Georgie Anguiano PA-C [address] [address] Assigned Neuroscience Provider 12/04/24 documented as of this encounter
--- OUTSIDE RECORDS SUMMARY | 2024-12-06 00:23 | XMS_ITS | Encounter Summary ---
Author Organization [place] Address [address] [place] [address] Care Team Providers Care Senior Network Security Engineer Name Role Phone Va Glez MD Primary Care Provider Va Glez MD Unavailable Kerry Bernal RN Unavailable Ravi Barillas DPM Unavailable [phone] Christy Campuzano PA-C Unavailable Hans Cannon MD Unavailable Mitra Kendall RELAY MECHANIC Unavailable Burt Jovel MD Unavailable Estella Hassan [facility] Unavailable [phone] Reji Chavez MD Unavailable Josh Cordero MD, Madhuri Unavailable [phone] Josh Cordero MD, Madhuri Unavailable [phone] Kelsi Hassan MD Unavailable [phone] John Webb MD Unavailable [phone] John Webb MD Unavailable [phone] Estella Hassan [facility] Unavailable Nav Hughes MD Unavailable [phone] Cassandra Mendoza MD Unavailable Estella Hassan RPH Unavailable Mitra Kendall RELAY MECHANIC Unavailable Aurelio Lindsay Kenzie OD Unavailable Ravi Brownlee MD Unavailable Kye Arabella MA Unavailable [phone] Richard Kam MD Unavailable Marisol Patel RPH Unavailable Gaby Vila DO Unavailable Rosemarie Mcdowell RN Unavailable Ravi Brownlee MD Unavailable Mitra Kendall RELAY MECHANIC Unavailable Lizet MannC Unavailable Ravi Brownlee MD Unavailable Nav Hughes MD Unavailable [phone] Manuel Ahn OD Unavailable Kye Arabella MA Unavailable [phone] Thalia Charles RP Unavailable Gaurav Valenzuela APRN SCARRER Unavailable Manuel Ahn OD Unavailable Debbie Mann MD Unavailable Hakeem Chacko Unavailable Debbie Mann MD Unavailable Timothy Tejada MD Unavailable Timothy Tejada MD Unavailable Elsie Roberts APRN SCARRER Unavailable + Cristy Morton MD Unavailable Georgie Anguiano PA-C Unavailable [phone] Encounter Details Date Type Department Care Team (Late st Contact Info) Description 09/07/2020 MyC Medical Advice [address] [address] Estella Hassan, [facility] [address] [place] [address] Social History Tobacco Use Types Packs/Day Years [...] and Family Not on file 05/31/2019 Attends [employer] Not on file 05/30 Active Member [...] on file 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 Gender Identity Not on file Sexual [...] Description 12/11/2024 2:10 PM CDT Therapy Visit [facility] [address] [place] [address] Shanta Cooper, MOIZ 12/14/2024 11:20 AM CDT Office Visit [facility] [address] [place] [address] Lizet Mann PA-C [address] [facility] [place] [address] 12/17/2024 2:10 PM CDT Office Visit [facility] Orthopedic [facility] 909 [facility] 4th [place] [address] Richard Kam MD 500 [place] [address] 12/19/2024 8:20 AM CDT Therapy Visit [address] [place] [address] Shanta Cooper, PT 12/24/2024 5:00 PM CDT Therapy Visit [address] [address] Pattie Casillas, PT 12/25/2024 10:20 AM CDT Therapy Visit [address] [address] Shanta Cooper, PT 01/03/2025 1:00 PM CDT Office Visit [address] [phone] Estella Hassan, [facility] [address] [place] [address] 01/03/2025 1:30 PM CDT Office Visit [address] [phone] Va Glez MD [address] [place] [id number] 01/08/2025 1:15 PM CDT Office Visit [facility] [address] [facility] [address] [place] [phone] Hakeem Chacko MBBS [address] [place] [address] Scheduled Procedures Name Priority Associated Diagnoses Date/Ti me INJECTION, EPIDURAL, TRANSFO RAMINAL APPROACH Cervical radiculitis RELEASE, CARPAL TUNNEL, ENDOSCOPIC Right carpal tunnel syndrome documented as of this encounter Visit Diagnoses Not on filedocumented in this encounter Additional Health Concerns Infection Onset Date Last Indicated Resolved Time Rule Out COVID-19 06/22/2021 06/22/2021 06/23/2021 8:58 PM CDT Rule Out COVID-19 01/22/2022 01/22/2022 01/24/2022 1:05 PM SOLUTION MAKE UP OPERATOR Rule Out COVID-19 01/25/2022 01/25/2022 01/25/2022 5:21 AM SOLUTION MAKE UP OPERATOR Influenza 01/25/2022 01/25/2022 02/01/2022 11:4 1 PM SOLUTION MAKE UP OPERATOR Rule Out COVID-19 07/29/2022 07/29/2022 07/31/2022 11:17 AM CDT Rule Out COVID-19 03/23/2023 03/23/2023 03/23/2023 6:30 PM SOLUTION MAKE UP OPERATOR COVID-19 03/23/2023 03/23/2023 04/13/2023 11:4 0 PM SOLUTION MAKE UP OPERATOR Rule Out COVID-19 06/05/2023 06/05/2023 06/05/2023 5:53 PM CDT Rule Out COVID-19 11/06/2023 11/06/2023 11/06/2023 11:05 PM CDT Rule Out COVID-19 11/20/2023 11/20/2023 11/20/2023 6:43 PM CDT Rule Out COVID-19 12/27/2023 12/27/2023 12/29/2023 1:37 PM CDT Rule Out COVID-19 03/01/2024 03/01/2024 03/01/2024 1:11 PM SOLUTION MAKE UP OPERATOR Rule Out COVID-19 07/18/2024 07/18/2024 07/19/2024 5:52 PM CDT Rule Out COVID-19 10/17/2024 10/17/2024 10/17/2024 11:23 PM CDT Rule Out C-difficile 11/04/2024 11/04/2024 025 1:55 AM CDT Assessment Noted Time PHQ-9 Depression Total Score: 7 08/08/19 21 7:03 AM CDT documented as of this encounter Care Teams Senior Network Security Engineer Relationship Specialty [place] [address] [place] [address] PCP - General Family Practice 07/11/14 [place] [address] [place] [address] Assigned PCP 12/16/11 Kerry Bernal RN Personal Advocate & Liaison (PAL) 01/08/19 07/10/23 Ravi Barillas DPM [address] [facility] [address] [place] [address] Assigned Musculoskeletal Provider 03/23/20 10/30/21 Christy Campuzano PA-C [address] [place] [address] 836242 Referring Physician Family Medicine 04/22/20 Hans Cannon MD [address] [place] [address] Resident Pulmonary Disease 04/22/20 Mitra Kendall, RELAY MECHANIC Lead Olive Grader Primary Care - CC 01/08/1901/12 Burt Jovel MD Internal Medicine 05/08/20 12/13/23 Estella Hassan, [facility] [address] [place] [address] Pharmacist Pharmacist 05/26/20 Reji Chavez MD [address]405 [facility] [address] [place] [address] Assigned Heart and Vascular Provider 05/18/20 10/30/21 Elaina Moreno MD [address] [place] [address] Assigned Surgical Provider 05/18/20 11/19/22 Elaina Moreno MD [address] [place] [address] Cardiovascular & Thoracic Surgery 08/06/20 Kelsi Hassan MD [address] [place] [address] Assigned Pulmonology Provider 06/28/21 02/05/22 John Webb MD [address] [address] Cardiovascular Disease 08/25/21 John Webb MD [address] 937065 Cardiovascular Disease 08/25/21 Estella Hassan, [facility] [address] [place] [address] Assigned MTM Pharmacist 09/05/21 Nav Hughes MD [address] [place] [address] Assigned Heart and Vascular Provider 10/31/21 09/03/23 Cassandra Mendoza MD ORTHOPAEDIC SURGERY [facility] [address] [address] Assigned Musculoskeletal Provider 10/31/21 08/13/22 Estella Hassan, [facility] [address] [place] [address] Assigned MTM Pharmacist 12/09/21 Mitra Kendall, [facility] Lead Olive Grader Primary Care - CC 01/26/2210/28 Lindsay Carey OD 3305 [facility] [place] [address] Ophthalmology 01/29/22 aRvi Brownlee MD [address] [place] [address] Assigned Pulmonology Provider 02/06/22 09/03/23 Arabella Fishman MA Financial Resource Worker 02/22/22 02/23/22 Richard Kam MD [address] [place] [address] Assigned Musculoskeletal Provider 08/14/22 Marisol Patel, [facility] 1440 [facility] [place] [place] [phone] Pharmacist Pharmacist 11/22/22 01/09/23 [place] [address] BC PENA, [address] [address] Assigned Neuroscience Provider 01/01/23 12/03/[address] Worker Diabetes Education 03/17/23 Ravi Brownlee MD [address] 880655 Assigned Heart and Vascular Provider 09/04/23 01/03/24 Mitra Kendall, [facility] Lead Olive Grader Primary Care - CC 12/12/23 Lizet Mann PA-C [address] [place] [address] [place] [address] Assigned Cancer Care Provider 01/04/24 Ravi Brownlee MD [address] [address] Assigned Pulmonology Provider 01/04/24 Nav Hughes MD [address]405 [facility] [address] [place] [address] Assigned Heart and Vascular Provider 01/04/24 05/05/24 Manuel Ahn OD 6341 [place] [address] Customer Field Representative 01/05/24 Arabella Fishman MA Financial Resource Worker 01/06/24 03/19/24 Melvin Thalia, [facility] [address] [place], [place] [phone] Pharmacist Pharmacy 01/26/24 Gaurav Valenzuela APRN SCARRER [address] [facility] 106 [place], [place] 449534 Assigned Sleep Provider 02/04/24 Manuel Ahn OD 6341 [place], [place] 189122 Assigned Surgical Provider 02/04/24 06/02/24 Debbie Mann MD [address] [address] Cardiovascular Disease 02/24/24 Hakeem Chacko MBBS 2945 [place], [place] [address] Assigned Rheumatology Provider 04/05/24 Debbie Mann MD 1600 [facility] 200 [place], [place] [phone] Assigned Heart and Vascular Provider 05/06/24 Timothy Tejada MD 6341 [place] [phone] Ophthalmology 05/29/24 Timothy Tejada MD 6341 [place] [address] Assigned Surgical Provider 06/03/24 [place]sie Roberts APRN SCARRER 1600 [facility] [place] [address] [place] [address] Nurse Practitioner Pain Medicine 10/16/24 Cristy Morton MD 1440 [facility] [place] [address] Assigned Pediatric Specialist Provider 11/03/24 Georgie Anguiano PA-C [address] [address] Assigned Neuroscience Provider 12/04/24 documented as of this encounter
--- OUTSIDE RECORDS SUMMARY | 2024-12-06 00:23 | XMS_ITS | Encounter Summary ---
Author Organization [place] Address [address] [place] [address] Care Team Providers Care Bolt Labeler Name Role Phone Va Glez MD Primary Care Provider Va Glez MD Unavailable Kerry Bernal RN Unavailable [phone] Ravi Barillas DPM Unavailable [phone] Christy Campuzano PA-C Unavailable Hans Cannon MD Unavailable [phone] Mitra Kendall PATTERN CHANGER AND REPAIRER Unavailable Burt Jovel MD Unavailable [phone] Estella Hassan [facility] Unavailable [phone] Reji Chavez MD Unavailable [phone] Josh Cordero MD, Madhuri Unavailable [phone] Josh Cordero MD, Madhuri Unavailable [phone] Kelsi Hassan MD Unavailable [phone] John Webb MD Unavailable John Webb MD Unavailable Estella Hassan [facility] Unavailable Nav Hughes MD Unavailable [phone] Cassandra Mendoza MD Unavailable Estella Hassan RPH Unavailable Mitra Kendall PATTERN CHANGER AND REPAIRER Unavailable Aurelio Lindsay Kenzie OD Unavailable Ravi Brownlee MD Unavailable Kye Arabella MA Unavailable [phone] Richard Kam MD Unavailable Marisol Patel RPH Unavailable Gaby Vila DO Unavailable Rosemarie Mcdowell RN Unavailable Ravi Brownlee MD Unavailable Mitra Kendall PATTERN CHANGER AND REPAIRER Unavailable Lizet MannC Unavailable Ravi Brownlee MD Unavailable Nav Hughes MD Unavailable [phone] Manuel Ahn OD Unavailable Kye Arabella MA Unavailable [phone] Thalia Charles RP Unavailable Gaurav Valenzuela APRN DRAGLINE OPERATOR Unavailable Manuel Ahn OD Unavailable Debbie Mann MD Unavailable Hakeem Chacko Unavailable Debbie Mann MD Unavailable Timothy Tejada MD Unavailable Timothy Tejada MD Unavailable Elsie Roberts APRN DRAGLINE OPERATOR Unavailable + Cristy Morton MD Unavailable [phone] Georgie Anguiano PA-C Unavailable Encounter Details Date Type Department Care Team (Late st Contact Info) Description 10/05/2020 MyC Medical Advice [address] [address] Estella Hassan, [facility] [address] [place] [address] Social History Tobacco Use Types Packs/Day Years [...] and Family Not on file 05/31/2019 Attends [employer] Services Not on file 05/30 Active Member [...] points; Administer PHQ-9 if positive 1 08/06/2020 [facility] - [...] on file 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 Gender Identity Not on file Sexual [...] Description 12/11/2024 2:10 PM CDT Therapy Visit [facility] [address] [place] [phone] Shanta Cooper, MOIZ 12/14/2024 11:20 AM CDT Office Visit [facility] [address] [place] [phone] Lizet Mann PA-C [address] [address] [place] [place] [address] 12/17/2024 2:10 PM CDT Office Visit [facility] [address] [facility] 4th [place] [address] Richard Kam MD 500 [place] [address] 12/19/2024 8:20 AM CDT Therapy Visit [address] [place] [phone] Shanta Cooper, PT 12/24/2024 5:00 PM CDT Therapy Visit [address] [address] Pattie Casillas, PT 12/25/2024 10:20 AM CDT Therapy Visit [address] [address] Shanta Cooper, PT 01/03/2025 1:00 PM CDT Office Visit [address] [phone] Estella Hassan, [facility] [address] [place] [address] 01/03/2025 1:30 PM CDT Office Visit [address] [phone] Va Glez MD [address] [place] [id number] 01/08/2025 1:15 PM CDT Office Visit [facility] [address] [facility] [address] [place] [phone] Hakeem Chacko MBBS [address] [place] [address] Scheduled Procedures Name Priority Associated Diagnoses Date/Ti me INJECTION, EPIDURAL, TRANSFO RAMINAL APPROACH Cervical radiculitis RELEASE, CARPAL TUNNEL, ENDOSCOPIC Right carpal tunnel syndrome documented as of this encounter Visit Diagnoses Not on filedocumented in this encounter Additional Health Concerns Infection Onset Date Last Indicated Resolved Time Rule Out COVID-19 06/22/2021 06/22/2021 06/23/2021 8:58 PM CDT Rule Out COVID-19 01/22/2022 01/22/2022 01/24/2022 1:05 PM NATURAL GAS PLANT TECHNICIAN Rule Out COVID-19 01/25/2022 01/25/2022 01/25/2022 5:21 AM NATURAL GAS PLANT TECHNICIAN Influenza 01/25/2022 01/25/2022 02/01/2022 11:4 1 PM NATURAL GAS PLANT TECHNICIAN Rule Out COVID-19 07/29/2022 07/29/2022 07/31/2022 11:17 AM CDT Rule Out COVID-19 03/23/2023 03/23/2023 03/23/2023 6:30 PM NATURAL GAS PLANT TECHNICIAN COVID-19 03/23/2023 03/23/2023 04/13/2023 11:4 0 PM NATURAL GAS PLANT TECHNICIAN Rule Out COVID-19 06/05/2023 06/05/2023 06/05/2023 5:53 PM CDT Rule Out COVID-19 11/06/2023 11/06/2023 11/06/2023 11:05 PM CDT Rule Out COVID-19 11/20/2023 11/20/2023 11/20/2023 6:43 PM CDT Rule Out COVID-19 12/27/2023 12/27/2023 12/29/2023 1:37 PM CDT Rule Out COVID-19 03/01/2024 03/01/2024 03/01/2024 1:11 PM NATURAL GAS PLANT TECHNICIAN Rule Out COVID-19 07/18/2024 07/18/2024 07/19/2024 5:52 PM CDT Rule Out COVID-19 10/17/2024 10/17/2024 10/17/2024 11:23 PM CDT Rule Out C-difficile 11/04/2024 11/04/2024 025 1:55 AM CDT Assessment Noted Time PHQ-9 Depression Total Score: 7 08/08/19 21 7:03 AM CDT documented as of this encounter Care Teams Bolt Labeler Relationship Specialty [place] [address] [place] [address] PCP - General Family Practice 07/11/14 [place] [address] [place] [address] Assigned PCP 12/16/11 Kerry Bernal RN Personal Advocate & Liaison (PAL) 01/08/19 07/10/23 Ravi Barillas DPM [address] [facility] [address] [place] [address] Assigned Musculoskeletal Provider 03/23/20 10/30/21 Christy Campuzano PA-C [address] [place] [address] 046082 Referring Physician Family Medicine 04/22/20 Hans Cannon MD [address] [place] [address] Resident Pulmonary Disease 04/22/20 Mitra Kendall, PATTERN CHANGER AND REPAIRER Lead Entry Level Truck Driver Primary Care - CC 01/08/1901/12 Burt Jovel MD Internal Medicine 05/08/20 12/13/23 Estella Hassan, [facility] [address] [place] [address] Pharmacist Pharmacist 05/26/20 Reji Chavez MD 6405 [facility] [address] [place] [phone] Assigned Heart and Vascular Provider 05/18/20 10/30/21 Elaina Moreno MD [address] [place] [address] Assigned Surgical Provider 05/18/20 11/19/22 Elaina Moreno MD [address] [place] [address] Cardiovascular & Thoracic Surgery 08/06/20 Kelsi Hassan MD [address] [place] [address] Assigned Pulmonology Provider 06/28/21 02/05/22 John Webb MD [address] [address] Cardiovascular Disease 08/25/21 John Webb MD [address] 827335 Cardiovascular Disease 08/25/21 Estella Hassan, [facility] [address] [place] [address] Assigned MTM Pharmacist 09/05/21 Nav Hughes MD [address] [place] [address] Assigned Heart and Vascular Provider 10/31/21 09/03/23 Cassandra Mendoza MD ORTHOPAEDIC SURGERY [facility] [address] [address] Assigned Musculoskeletal Provider 10/31/21 08/13/22 Estella Hassan, [facility] [address] [place] [address] Assigned MTM Pharmacist 12/09/21 Mitra Kendall, [facility] Lead Entry Level Truck Driver Primary Care - CC 01/26/2210/28 Lindsay Carey OD 3[address] [facility] [place] [address] Ophthalmology 01/29/22 Ravi Brownlee MD [address] [place] [address] Assigned Pulmonology Provider 02/06/22 09/03/23 Arabella Fishman MA Financial Resource Worker 02/22/22 02/23/22 Richard Kam MD [address] [place] [address] Assigned Musculoskeletal Provider 08/14/22 Marisol Patel, [facility] 1440 [facility] [place] [phone] Pharmacist Pharmacist 11/22/22 01/09/23 [place] [address] BC PENA, [address] [address] Assigned Neuroscience Provider 01/01/23 12/03/24 Rosemarie Mcdowell RN Nuclear Officer Diabetes Education 03/17/23 Ravi Brownlee MD [address] [phone] Assigned Heart and Vascular Provider 09/04/23 01/03/24 Mitra Kendall, [facility] Lead Entry Level Truck Driver Primary Care - CC 12/12/23 Lizet Mann PA-C [address] [place] [address] [place] [address] Assigned Cancer Care Provider 01/04/24 Ravi Brownlee MD [address] [address] Assigned Pulmonology Provider 01/04/24 Nav Hughes MD 6405 [facility] [address] [place] [address] Assigned Heart and Vascular Provider 01/04/24 05/05/24 Manuel Ahn OD 6341 [facility] [place] [address] Sugar Cane Grower 01/05/24 Arabella Fishman MA Financial Resource Worker 01/06/24 03/19/24 Melvin Thalia, [facility] [address] [place], [place] [phone] Pharmacist Pharmacy 01/26/24 Gaurav Valenzuela APRN DRAGLINE OPERATOR 606 [facility] 106 [place], [place] 050954 Assigned Sleep Provider 02/04/24 Manuel Ahn OD 6341 [place], [place] 286912 Assigned Surgical Provider 02/04/24 06/02/24 Debbie Mann MD [address] [address] Cardiovascular Disease 02/24/24 Hakeem Chacko MBBS 2945 [place], [place] [address] Assigned Rheumatology Provider 04/05/24 Debbie Mann MD 1600 [facility] 200 [place], [place] [phone] Assigned Heart and Vascular Provider 05/06/24 Timothy Tejada MD 6341 [place] [phone] Ophthalmology 05/29/24 Timothy Tejada MD 6341 [place] [address] Assigned Surgical Provider 06/03/24 Elsie Roberts APRN DRAGLINE OPERATOR 1600 [facility] [place] [address] [place] [address] Nurse Practitioner Pain Medicine 10/16/24 Cristy Morton MD 1440 [facility] [place] [address] Assigned Pediatric Specialist Provider 11/03/24 Georgie Anguiano PA-C [address] [address] Assigned Neuroscience Provider 12/04/24 documented as of this encounter
--- OUTSIDE RECORDS SUMMARY | 2024-12-06 00:23 | XMS_ITS | Encounter Summary ---
Author Organization [place] Address [address] [place] [address] Care Team Providers Care Job Compositor Name Role Phone Va Glez MD Primary Care Provider Va Glez MD Unavailable Kerry Bernal RN Unavailable Ravi Barillas DPM Unavailable [phone] Christy Campuzano PA-C Unavailable Hans Cannon MD Unavailable Mitra Kendall DOCUMENT CONTROL CLERK Unavailable Burt Jovel MD Unavailable Estella Hassan [facility] Unavailable Reji Chavez MD Unavailable Josh Cordero MD, Madhuri Unavailable [phone] Josh Cordero MD, Madhuri Unavailable [phone] Kelsi Hassan MD Unavailable [phone] John Webb MD Unavailable [phone] John Webb MD Unavailable Estella Hassan [facility] Unavailable [phone] Nav Hughes MD Unavailable [phone] Cassandra Mendoza MD Unavailable Estella Hassan RPH Unavailable Mitra Kendall DOCUMENT CONTROL CLERK Unavailable Aurelio Lindsay Kenzie OD Unavailable Ravi Brownlee MD Unavailable Kye Arabella MA Unavailable Richard Kam MD Unavailable Marisol Patel RPH Unavailable Gaby Vila DO Unavailable Rosemarie Mcdowell RN Unavailable Ravi Brownlee MD Unavailable Mitra Kendall DOCUMENT CONTROL CLERK Unavailable Lizet MannC Unavailable Ravi Brownlee MD Unavailable Nav Hughes MD Unavailable [phone] Manuel Ahn OD Unavailable Kye Arabella MA Unavailable [phone] Thalia Charles RP Unavailable Gaurav Valenzuela APRN SCAFFOLDER Unavailable Manuel Ahn OD Unavailable Debbie Mann MD Unavailable Hakeem Chacko Unavailable Debbie Mann MD Unavailable Timothy Tejada MD Unavailable Timothy Tejada MD Unavailable Elsie Roberts APRN SCAFFOLDER Unavailable + Cristy Morton MD Unavailable Georgie Anguiano PA-C Unavailable [phone] Encounter Details Date Type Department Care Team (Late st Contact Info) Description 08/29/2020 MyC Medical Advice [address] [address] Estella Hassan, [facility] [address] [place] [address] Moderate persistent asthma without complication Social History [...] points; Administer PHQ-9 if positive 1 08/06/2020 [facility] [...] on file Legal Sex Male 3:29 AM INTERN Gender Identity Not on file Sexual Orientation [...] inhaler. Asks that this be sent to [facility] in [place]. Plan: 1. Refilled albuterol HFA. All changes were made via collaborative practice agreement with Va Glez. Tino Medina, PharmD, BCACP Medication Therapy Management Pharmacist Pager: [phone] documented in this encounter Plan of Treatment Upcoming Encounters Date Type Department Care Team (Late st Contact Info) Description 12/11/2024 2:10 PM CDT Therapy Visit [address] [phone] Shanta Cooper, PT 12/14/2024 11:20 AM CDT Office Visit [facility] [address] [facility] [place] [phone] Lizet Mann PA-C [address] [facility] [place] [address] 12/17/2024 2:10 PM CDT Office Visit [facility] [address] [place] [address] 4th [place] [phone] Richard Kam MD [address] [place] [address] 12/19/2024 8:20 AM CDT Therapy Visit [address] [phone] Shanta Cooper, PT 12/24/2024 5:00 PM CDT Therapy Visit [address] [phone] Pattie Casillas, PT 12/25/2024 10:20 AM CDT Therapy Visit [address] [phone] Shanta Cooper, PT 01/03/2025 1:00 PM CDT Office Visit [facility] [address] [place] [phone] Estella Hassan, [facility] [address] [place] [address] 01/03/2025 1:30 PM CDT Office Visit [facility] [address] [place] [phone] [place] [address] [place] [address] 01/08/2025 1:15 PM CDT Office Visit [facility] 2945 [facility] 200 [place] [address] Hakeme Chacko MBBS 2945 [place] [address] Scheduled Procedures Name Priority Associated Diagnoses Date/Ti [...] Out COVID-19 01/22/2022 01/22/2022 01/24/2022 1:05 PM INTERN Rule Out COVID-19 01/25/2022 01/25/2022 01/25/2022 5:21 AM INTERN Influenza 01/25/2022 01/25/2022 02/01/2022 11:4 1 PM INTERN Rule Out COVID-19 07/29/2022 07/29/2022 07/31/2022 11:17 AM CDT Rule Out COVID-19 03/23/2023 03/23/2023 03/23/2023 6:30 PM INTERN COVID-19 03/23/2023 03/23/2023 04/13/2023 11:4 0 PM INTERN Rule Out COVID-19 06/05/2023 06/05/2023 06/05/2023 5:53 PM CDT Rule Out COVID-19 11/06/2023 11/06/2023 11/06/2023 11:05 PM CDT Rule Out COVID-19 11/20/2023 11/20/2023 11/20/2023 6:43 PM CDT Rule Out COVID-19 12/27/2023 12/27/2023 12/29/2023 1:37 PM CDT Rule Out COVID-19 03/01/2024 03/01/2024 03/01/2024 1:11 PM INTERN Rule Out COVID-19 07/18/2024 07/18/2024 07/19/2024 5:52 PM CDT Rule Out COVID-19 10/17/2024 10/17/2024 10/17/2024 11:23 PM CDT Rule Out C-difficile 11/04/2024 11/04/2024 025 1:55 AM CDT Assessment Noted Time PHQ-9 Depression Total Score: 7 08/08/19 21 7:03 AM CDT documented as of this encounter Care Teams Job Compositor Relationship Specialty [place] [address] [place] [address] PCP - General Family Practice 07/11/14 [place] [address] [place] [address] Assigned PCP 12/16/11 Kerry Bernal RN Personal Advocate & Liaison (PAL) 01/08/19 07/10/23 Ravi Barillas DPM [address] [facility] 300 [place], [place] [phone] Assigned Musculoskeletal Provider 03/23/20 10/30/21 Christy Campuzano PA-C 4151 [place], [place] 824922 Referring Physician Family Medicine 04/22/20 [place] [address] [place] [address] 458052 Resident Pulmonary Disease 04/22/20 Mitra Kendall, [facility] Lead Regional Engagement Consultant Primary Care - CC 01/08/1901/12 Burt Jovel MD Internal Medicine 05/08/20 12/13/23 Estella Hassan, [facility] [address] [place], [place] 8[address] Pharmacist Pharmacist 05/26/20 Reji Chavez MD 6405 [facility] [address] [place] [address] Assigned Heart and Vascular Provider 05/18/20 10/30/21 Elaina Moreno MD [address] [place] [address] 013975 Assigned Surgical Provider 05/18/20 11/19/22 Elaina Moreno MD 9 [place] [address] Cardiovascular & Thoracic Surgery 08/06/20 Kelsi Hassan MD 2450 [place] [address] Assigned Pulmonology Provider 06/28/21 02/05/22 John Webb MD [address] [place] [address] Cardiovascular Disease 08/25/21 John Webb MD [address] [place] [address] Cardiovascular Disease 08/25/21 Estella Hassan, [facility] [address] [place] [address] Assigned MTM Pharmacist 09/05/21 Nav Hughes MD [address] [place] [address]65 Assigned Heart and Vascular Provider 10/31/21 09/03/23 Cassandra Mendoza MD ORTHOPAEDIC SURGERY [address] 302454 Assigned Musculoskeletal Provider 10/31/21 08/13/22 Estella Hassan, [facility] [address] [place] [address] Assigned MTM Pharmacist 12/09/21 Mitra Kendall, [facility] Lead Regional Engagement Consultant Primary Care - CC 01/26/2210/28 [place] [address] [place] [address] [place] [address] Ophthalmology 01/29/22 Ravi Brownlee MD [address] [place] [address] Assigned Pulmonology Provider 02/06/22 09/03/23 Arabella Fishman MA Financial Resource Worker 02/22/22 02/23/22 Richard Kam MD [address] [place] [address] Assigned Musculoskeletal Provider 08/14/22 Marisol Patel, [facility] [address] [place], [place] [phone] Pharmacist Pharmacist 11/22/22 01/09/23 [place] [address] [address] [address] Assigned Neuroscience Provider 01/01/23 12/03/24 Rosemarie Mcdowell, RN Dining Manager Diabetes Education 03/17/23 Ravi Brownlee MD [address] [place] [address] Assigned Heart and Vascular Provider 09/04/23 01/03/24 Mitra Kendall, DOCUMENT CONTROL CLERK Lead Regional Engagement Consultant Primary Care - CC 12/12/23 Lizet Mann PA-C [address] [place] [address] Assigned Cancer Care Provider 01/04/24 Ravi Brownlee MD [address] [place] [address] Assigned Pulmonology Provider 01/04/24 Nav Hughes MD 6405 [facility] [address] [place], [place] 8[address] Assigned Heart and Vascular Provider 01/04/24 05/05/24 Manuel Ahn, OD 6341 [place] [address] Spot Sprayer 01/05/24 Arabella Fishman MA Financial Resource Worker 01/06/24 03/19/24 Thalia Charles [facility] [address] [place], [place] [phone] Pharmacist Pharmacy 01/26/24 Gaurav Valenzuela APRN SCAFFOLDER 606 [facility] 106 [place] [address] Assigned Sleep Provider 02/04/24 Manuel Ahn, OD 6341 [place] [address] Assigned Surgical Provider 02/04/24 06/02/24 Debbie Mann MD 1600 [facility] 200 [place], [place] [phone] Cardiovascular Disease 02/24/24 Hakeem Chacko MBBS 2945 [place], [place] [address] Assigned Rheumatology Provider 04/05/24 Debbie Mann MD 1600 [facility] 200 [place] [address] Assigned Heart and Vascular Provider 05/06/24 Timothy Tejada MD 6341 [facility] [place] [place] [address] Ophthalmology 05/29/24 Timothy Tejada MD 6341 [facility] [place] [address] Assigned Surgical Provider 06/03/24 Elsie Roberts APRN SCAFFOLDER 1600 [facility] 101 [place] [address] Nurse Practitioner Pain Medicine 10/16/24 Cristy Morton MD [address] [place] [address] [place] [address] Assigned Pediatric Specialist Provider 11/03/24 Georgie Anguiano PA-C [address] [address] Assigned Neuroscience Provider 12/04/24 documented as of this encounter
--- OUTSIDE RECORDS SUMMARY | 2024-12-06 00:23 | XMS_ITS | Encounter Summary ---
Author Organization [facility] Address [address] [place] [address] Care Team Providers Care Health/Safety Job Titles Name Role Phone Va Glez MD Primary Care Provider [phone] Va Glez MD Unavailable Kerry Bernal RN Unavailable Ravi Barillas DPM Unavailable [phone] Christy Campuzano PA-C Unavailable [phone] Hans Cannon MD Unavailable Mitra Kendall STAKING ENGINEER Unavailable Burt Jovel MD Unavailable Estella Hassan [facility] Unavailable [phone] Reji Chavez MD Unavailable Josh Cordero MD, Madhuri Unavailable [phone] Josh Cordero MD, Madhuri Unavailable [phone] Kelsi Hassan MD Unavailable [phone] John Webb MD Unavailable John Webb MD Unavailable Estella Hassan [facility] Unavailable [phone] Nav Hughes MD Unavailable [phone] Cassandra Mendoza MD Unavailable Estella Hassan RPH Unavailable Mitra Kendall STAKING ENGINEER Unavailable Aurelio Lindsay Kenzie OD Unavailable Ravi Brownlee MD Unavailable Kye Arabella MA Unavailable [phone] Richard Kam MD Unavailable Marisol Patel RPH Unavailable Gaby Vila DO Unavailable Rosemarie Mcdowell RN Unavailable Ravi Brownlee MD Unavailable Mitra Kendall STAKING ENGINEER Unavailable Lizet MannC Unavailable Ravi Brownlee MD Unavailable Nav Hughes MD Unavailable [phone] Manuel Ahn OD Unavailable Kye Arabella MA Unavailable [phone] Thalia Charles RP Unavailable Gaurav Valenzuela APRN PERCUSSION WELDING MACHINE OPERATOR Unavailable Manuel Ahn OD Unavailable Debbie Mann MD Unavailable Hakeem Chacko Unavailable Debbie Mann MD Unavailable Timothy Tejada MD Unavailable Timothy Tejada MD Unavailable Elsie Roberts APRN PERCUSSION WELDING MACHINE OPERATOR Unavailable + Cristy Morton MD Unavailable Georgie Anguiano PA-C Unavailable Encounter Details Date Type Department Care Team (Late st Contact Info) Description 09/09/2020 MyC Medical Advice [address] [address] Estella Hassan, [facility] [address] [place] [address] Social History Tobacco Use Types Packs/Day Years [...] points; Administer PHQ-9 if positive 1 08/06/2020 [facility] [...] on file Legal Sex Male 3:29 AM PHILOSOPHY AND RELIGION INSTRUCTOR Gender Identity Not on file Sexual Orientation [...] CDT Therapy Visit [facility] Rehabilitation [address] [place] [phone] Shanta Cooper, MOIZ 12/14/2024 11:20 AM CDT Office Visit [facility] [address] [place] [address] Lizet Mann PA-C [address] [facility] [place] [address] 12/17/2024 2:10 PM CDT Office Visit [facility] Orthopedic [facility] 909 [facility] 4th [place] [address] Richard Kam MD 500 [place] [address] 12/19/2024 8:20 AM CDT Therapy Visit [address] [place] [phone] Shanta Cooper, PT 12/24/2024 5:00 PM CDT Therapy Visit [address] [address] Pattie Casillas, PT 12/25/2024 10:20 AM CDT Therapy Visit [address] [address] Shanta Cooper, PT 01/03/2025 1:00 PM CDT Office Visit [address] [phone] Estella Hassan, [facility] [address] [place] [address] 01/03/2025 1:30 PM CDT Office Visit [address] [phone] Va Glez MD [address] [place] [address] [id number] 01/08/2025 1:15 PM CDT Office Visit [facility] 2945 [facility] [address] [place] [phone] Hakeem Chacko MBBS [address] [place] [address] Scheduled Procedures Name Priority Associated Diagnoses Date/Ti me INJECTION, EPIDURAL, TRANSFO RAMINAL APPROACH Cervical radiculitis RELEASE, CARPAL TUNNEL, ENDOSCOPIC Right carpal tunnel syndrome documented as of this encounter Visit Diagnoses Not on filedocumented in this encounter Additional Health Concerns Infection Onset Date Last Indicated Resolved Time Rule Out COVID-19 06/22/2021 06/22/2021 06/23/2021 8:58 PM CDT Rule Out COVID-19 01/22/2022 01/22/2022 01/24/2022 1:05 PM PHILOSOPHY AND RELIGION INSTRUCTOR Rule Out COVID-19 01/25/2022 01/25/2022 01/25/2022 5:21 AM PHILOSOPHY AND RELIGION INSTRUCTOR Influenza 01/25/2022 01/25/2022 02/01/2022 11:4 1 PM PHILOSOPHY AND RELIGION INSTRUCTOR Rule Out COVID-19 07/29/2022 07/29/2022 07/31/2022 11:17 AM CDT Rule Out COVID-19 03/23/2023 03/23/2023 03/23/2023 6:30 PM PHILOSOPHY AND RELIGION INSTRUCTOR COVID-19 03/23/2023 03/23/2023 04/13/2023 11:4 0 PM PHILOSOPHY AND RELIGION INSTRUCTOR Rule Out COVID-19 06/05/2023 06/05/2023 06/05/2023 5:53 PM CDT Rule Out COVID-19 11/06/2023 11/06/2023 11/06/2023 11:05 PM CDT Rule Out COVID-19 11/20/2023 11/20/2023 11/20/2023 6:43 PM CDT Rule Out COVID-19 12/27/2023 12/27/2023 12/29/2023 1:37 PM CDT Rule Out COVID-19 03/01/2024 03/01/2024 03/01/2024 1:11 PM PHILOSOPHY AND RELIGION INSTRUCTOR Rule Out COVID-19 07/18/2024 07/18/2024 07/19/2024 5:52 PM CDT Rule Out COVID-19 10/17/2024 10/17/2024 10/17/2024 11:23 PM CDT Rule Out C-difficile 11/04/2024 11/04/2024 025 1:55 AM CDT Assessment Noted Time PHQ-9 Depression Total Score: 7 08/08/19 21 7:03 AM CDT documented as of this encounter Care Teams Health/Safety Job Titles Relationship Specialty [place] [address] [place] [address] PCP - General Family Practice 07/11/14 [place] [address] [place] [address] Assigned PCP 12/16/11 Kerry Bernal RN Personal Advocate & Liaison (PAL) 01/08/19 07/10/23 Ravi Barillas DPM [address] [facility] [address] [place] [address] Assigned Musculoskeletal Provider 03/23/20 10/30/21 Christy Campuzano PA-C [address] [place] [address] 017932 Referring Physician Family Medicine 04/22/20 Hans Cannon MD [address] [place] [address] Resident Pulmonary Disease 04/22/20 Mitra Kendall, STAKING ENGINEER Lead Motor Vehicle Assembly Supervisor Primary Care - CC 01/08/1901/12 Burt Jovel MD Internal Medicine 05/08/20 12/13/23 Estella Hassan, [facility] [address] [place] [address] Pharmacist Pharmacist 05/26/20 Reji Chavez MD 6[address] [facility] [address] [place] [phone] Assigned Heart and Vascular Provider 05/18/20 10/30/21 Elaina Moreno MD [address] [place] [address] Assigned Surgical Provider 05/18/20 11/19/22 Elaina Moreno MD [address] [place] [address] Cardiovascular & Thoracic Surgery 08/06/20 Kelsi Hassan MD [address] [place] [address] Assigned Pulmonology Provider 06/28/21 02/05/22 John Webb MD [address] [address] Cardiovascular Disease 08/25/21 John Webb MD [address] 545055 Cardiovascular Disease 08/25/21 Estella Hassan, [facility] [address] [place] [address] Assigned MTM Pharmacist 09/05/21 Nav Hughes MD [address] [place] [address] Assigned Heart and Vascular Provider 10/31/21 09/03/23 Cassandra Mendoza MD ORTHOPAEDIC SURGERY [facility] [address] [address] Assigned Musculoskeletal Provider 10/31/21 08/13/22 Estella Hassan, [facility] [address] [place] [address] Assigned MTM Pharmacist 12/09/21 Mitra Kendall, [facility] Lead Motor Vehicle Assembly Supervisor Primary Care - CC 01/26/2210/28 [place] 3[address] [facility] [place] [address] Ophthalmology 01/29/22 Ravi Brownlee MD [address] [place] [address] Assigned Pulmonology Provider 02/06/22 09/03/23 Arabella Fishman MA Financial Resource Worker 02/22/22 02/23/22 Richard Kam MD [address] [place] [address] Assigned Musculoskeletal Provider 08/14/22 Marisol Patel, [facility] [address] [facility] [place] [id number] Pharmacist Pharmacist 11/22/22 01/09/23 [place] [address] [place], [address] [address] Assigned Neuroscience Provider 01/01/23 12/03/24 Rosemarie Mcdowell RN Freight Dispatcher Diabetes Education 03/17/23 Ravi Brownlee MD [address] 672105 Assigned Heart and Vascular Provider 09/04/23 01/03/24 Mitra Kendall, [facility] Lead Motor Vehicle Assembly Supervisor Primary Care - CC 12/12/23 Lizet Mann PA-C [address] [place] [address] [place] [address] Assigned Cancer Care Provider 01/04/24 Ravi Brownlee MD [address] [address] Assigned Pulmonology Provider 01/04/24 Nav Hughes MD 6405 [facility] [address] [place] [address] Assigned Heart and Vascular Provider 01/04/24 05/05/24 Manuel Ahn OD 6341 [facility] [place] [address] Casino Gaming Worker 01/05/24 Arabella Fishman MA Financial Resource Worker 01/06/24 03/19/24 Melvin Thalia, [facility] [address] [place], [place] [id number] Pharmacist Pharmacy 01/26/24 Gaurav Valenzuela APRN PERCUSSION WELDING MACHINE OPERATOR 606 [facility] 106 [place], [place] 021434 Assigned Sleep Provider 02/04/24 Manuel Ahn OD 6341 [place], [place] [address]0002 Assigned Surgical Provider 02/04/24 06/02/24 Debbie Mann MD [address] [address] Cardiovascular Disease 02/24/24 Hakeem Chacko MBBS 2945 [place], [place] 377[address] Assigned Rheumatology Provider 04/05/24 Debbie Mann MD 1600 [facility] 200 [place], [place] [phone] Assigned Heart and Vascular Provider 05/06/24 Timothy Tejada MD 6341 [place] [phone] Ophthalmology 05/29/24 Timothy Tejada MD 6341 [place] [phone] Assigned Surgical Provider 06/03/24 Elsie Roberts APRN PERCUSSION WELDING MACHINE OPERATOR 1600 [facility] [place] 101 [place] [address] Nurse Practitioner Pain Medicine 10/16/24 Cristy Morton MD 14[address] [facility] [place] [address] Assigned Pediatric Specialist Provider 11/03/24 Georgie Anguiano PA-C [address] [address] Assigned Neuroscience Provider 12/04/24 documented as of this encounter
--- OUTSIDE RECORDS SUMMARY | 2024-12-06 00:23 | XMS_ITS | Encounter Summary ---
Author Organization [facility] Address [address] [place] [address] Care Team Providers Care Professor Of Poultry Science Name Role Phone Va Glez MD Primary Care Provider [phone] Va Glez MD Unavailable Christy Campuzano PAUniqueC Unavailable [phone] Hans Cannon MD Unavailable [phone] Estella Hassan [facility] Unavailable Josh Cordero MD, Madhuri Unavailable [phone] John Webb MD Unavailable John Webb MD Unavailable Estella Hassan [facility] Unavailable Lindsay Carey OD Unavailable Richard Kam MD Unavailable Gaby Vila DO Unavailable [phone] Rosemarie Mcdowell RN Unavailable [phone] Mitra Kendall SATELLITE INSTALLER Unavailable [phone] Lizet Mann PA-C Unavailable Ravi Brownlee MD Unavailable Nav Hughes MD Unavailable [phone] Dayday Ahngina Syed OD Unavailable Thalia Charles [facility] Unavailable [phone] Gaurav Valenzuela DINING ROOM HOST RESEARCH ASSOCIATE Unavailable [phone] Dayday Ahngina Syed OD Unavailable Debbie Mann MD Unavailable [phone] Hakeem Chacko Unavailable Debbie Mann MD Unavailable [phone] Timothy Tejada MD Unavailable [phone] Timothy Tejada MD Unavailable [phone] Elsie Roberts DINING ROOM HOST RESEARCH ASSOCIATE Unavailable + Cristy Morton MD Unavailable [phone] Georgie Anguiano PA-C Unavailable [phone] Encounter Details Date Type Department Care Team (Late st Contact Info) Description 03/29/2024 [facility] [place] [address] [address] [address] Social History Tobacco Use Types Packs/Day [...] re latives? Once a week 12/23/2023 Attends [employer] Not on file 12/22 Active Member [...] Answer Date Recorded PHQ-2 Score 1 03/28/2024 [facility] Questionnaire [...] on file Legal Sex Male 3:29 AM DAY CARE PROVIDER Gender Identity Not on file Sexual Orientation Not on file Occupation Industry Job Start Date Job End Date Not on file Not on file Not on file Not on file documented as of this encounter Plan of Treatment Upcoming Encounters Date Type Department Care Team (Late st Contact Info) Description 12/11/2024 2:10 PM CDT Therapy Visit [address] [phone] Shanta Cooper, PT 12/14/2024 11:20 AM CDT Office Visit [address] [address] Lizet Mann PA-C [address] [place] [address] 12/17/2024 2:10 PM CDT Office Visit [facility] Orthopedic [address] [place] [phone] Richard Kam MD [address] [place] [address] 12/19/2024 8:20 AM CDT Therapy Visit [address] [phone] Shanta Cooper, PT 12/24/2024 5:00 PM CDT Therapy Visit [address] [phone] Vinny Mollymimi Dumas, PT 12/25/2024 10:20 AM CDT Therapy Visit [address] [place] [address] Shanta Cooper, PT 01/03/2025 1:00 PM CDT Office Visit [facility] [address] [place] [phone] Estella Hassan, [facility] [address] [place] [address] 01/03/2025 1:30 PM CDT Office Visit [address] [phone] [place] [address] [place], [place] [phone] 01/08/2025 1:15 PM CDT Office Visit [facility] 2945 [facility] 200 [place] [phone] Hakeem Chacko MBBS 2945 [place] [address] Scheduled Procedures Name Priority Associated Diagnoses Date/Ti me INJECTION, EPIDURAL, TRANSFO RAMINAL APPROACH Cervical radiculitis RELEASE, CARPAL TUNNEL, ENDOSCOPIC Right carpal tunnel syndrome documented as of this encounter Goals Goal Patient Goal Type Associated Problems Recent Progress Patient-Stated? Author Health Maintenance Care Plan HP GENERAL PROBLEM 100%(10/29/19 10:17 AM CDT) No Mitra Kendall, SATELLITE INSTALLER Note: Update on 05/25/22 Barriers: Currently without [...] for health insurance by looking in to [employer] and talking with a FRW. Completed 3. I will look for a new job and will access resources that the [employer] offers. . Sarted new job 4. Continue [...] in applying for [facility] [employer], [facility] assistance and to see if I qualify for Medicaid. I need to ask spouse what her income is as it goes by household income. 2. I will contact [facility] to ask about medicare plans and if there are saving programs I qualify for by by calling [phone]. 3. I will see if I am eligible for unemployment after losing my job. I will call [phone] to ask for assistance with unemployment application. 4. I will apply for jobs. I will work with [employer] in finding a job ([employer].) 5. I will access [employer] and ask about financial resources (such [...] and submit it to the [facility]. 3. I will update CCC Team at [...] Total Score: 4 03/28/19 25 2:25 PM DAY CARE PROVIDER documented as of this encounter Care Teams Professor Of Poultry Science Relationship Specialty [place] [address] [place] [address] PCP - General Family Practice 07/11/14 [place] [address] [place] [address] Assigned PCP 12/16/11 Christy Campuzano PA-C [address] [place] [address] Referring Physician Family Medicine 04/22/20 Hans Cannon MD [address] [place] [address] 176062 Resident Pulmonary Disease 04/22/20 Estella Hassan, [facility] [place], [place] 390836 Pharmacist Pharmacist 05/26/20 Elaina Moreno MD [address] [place] [address] 217535 Cardiovascular & Thoracic Surgery 08/06/20 John Webb MD [address] [address] Cardiovascular Disease 08/25/21 John Webb MD [address] 324945 Cardiovascular Disease 08/25/21 Estella Hassan, [facility] [place] [address] Assigned MTM Pharmacist 12/09/21 Lindsay Carey, ARA [address] [facility] [place] [address] Ophthalmology 01/29/22 Richard Kam MD 500 [place] [address] Assigned Musculoskeletal Provider 08/14/22 [place] [address] [place] PENA, [address] 109837 Assigned Neuroscience Provider 01/01/23 12/03/24 Rosemarie Mcdowell, RN Agricultural Research Technologist Diabetes Education 03/17/23 Mitra Kendall, SATELLITE INSTALLER Lead Putty And Caulking Supervisor Primary Care - CC 12/12/23 Lizet Mann PA-C [address] [place] [address] [place] 741749 Assigned Cancer Care Provider 01/04/24 Ravi Brownlee MD [address] 239545 Assigned Pulmonology Provider 01/04/24 Nav Hughes MD [facility] [place] [address]255 Assigned Heart and Vascular Provider 01/04/24 05/05/24 Manuel Ahn OD 6341 [facility] [place] 856912 Associate Media Planner 01/05/24 Yfnmary Thalia, [facility] [address] [place], [place] [phone] Pharmacist Pharmacy 01/26/24 Gaurav Valenzuela APRN RESEARCH ASSOCIATE 606 [facility] [address] [place], [place] 042294 Assigned Sleep Provider 02/04/24 Manuel Ahn OD 6341 [place], [place] 152782 Assigned Surgical Provider 02/04/24 06/02/24 Debbie Mann MD 1600 [facility] [address] [place] [address] Cardiovascular Disease 02/24/24 Hakeem Chacko MBBS 2945 [place] [address] Assigned Rheumatology Provider 04/05/24 Debbie Mann MD 1600 [facility] 200 [place] [address] Assigned Heart and Vascular Provider 05/06/24 Timothy Tejada MD 6341 [place] [phone] Ophthalmology 05/29/24 Timothy Tejada MD 6341 [place] [address] Assigned Surgical Provider 06/03/24 Elsie Roberts APRN RESEARCH ASSOCIATE 1600 [facility] [address] [place] [address] Nurse Practitioner Pain Medicine 10/16/24 Cristy Morton MD [facility] [place] [address] Assigned Pediatric Specialist Provider 11/03/24 Georgie Anguiano PA-C [address] [address] Assigned Neuroscience Provider 12/04/24 documented as of this encounter
--- OUTSIDE RECORDS SUMMARY | 2024-12-06 00:24 | XMS_ITS | Encounter Summary ---
Author Organization [facility] Address [address] [place] [address] Care Team Providers Care Store Hand Name Role Phone Va Glez MD Primary Care Provider Va Glez MD Unavailable Kerry Bernal RN Unavailable Ravi Barillas DPM Unavailable [phone] Christy Campuzano PA-C Unavailable Hans Cannon MD Unavailable [phone] Mitra Kendall TECHNOLOGY INTEGRATION SPECIALIST Unavailable [phone] Burt Jovel MD Unavailable Estella Hassan [facility] Unavailable Reji Chavez MD Unavailable [phone] Josh Cordero MD, Madhuri Unavailable [phone] Josh Cordero MD, Madhuri Unavailable [phone] Kelsi Hassan MD Unavailable [phone] John Webb MD Unavailable John Webb MD Unavailable Estella Hassan [facility] Unavailable Nav Hughes MD Unavailable [phone] Cassandra Mendoza MD Unavailable Estella Hassan RPH Unavailable Mitra Kendall TECHNOLOGY INTEGRATION SPECIALIST Unavailable Aurelio Lindsay Kenzie OD Unavailable Ravi Brownlee MD Unavailable Kye Arabella MA Unavailable [phone] Richard Kam MD Unavailable Marisol Patel RPH Unavailable Gaby Vila DO Unavailable Rosemarie Mcdowell RN Unavailable Ravi Brownlee MD Unavailable Mitra Kendall TECHNOLOGY INTEGRATION SPECIALIST Unavailable Lizet MannC Unavailable Ravi Brownlee MD Unavailable Nav Hughes MD Unavailable [phone] Manuel Ahn OD Unavailable Kye Arablela MA Unavailable Thalia Charles RP Unavailable Gaurav Valenzuela APRN OUTREACH REPRESENTATIVE Unavailable Manuel Ahn OD Unavailable Debbie Mann MD Unavailable Hakeem Chacko Unavailable Debbie Mann MD Unavailable Timothy Tejada MD Unavailable Timothy Tejada MD Unavailable Elsie Roberts APRN OUTREACH REPRESENTATIVE Unavailable + Cristy Morton MD Unavailable Georgie Anguiano PA-C Unavailable Encounter Details Date Type Department Care Team (Late st Contact Info) Description 10/05/2020 MyC Medical Advice [facility] [address] [address] Elaina Moreno MD [address] [place] [address] Social History Tobacco Use Types Packs/Day [...] points; Administer PHQ-9 if positive 1 08/06/2020 [facility] of Occupat [...] on file 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 Gender Identity Not on file Sexual [...] Description 12/11/2024 2:10 PM CDT Therapy Visit [facility] Rehabilitation Services [address] [place] [address] Shanta Cooper, MOIZ 12/14/2024 11:20 AM CDT Office Visit [facility] [address] [place] [address] Lizet Mann PA-C [address] [facility] [place] [address] 12/17/2024 2:10 PM CDT Office Visit [facility] Orthopedic [facility] [address] [facility] 4th [place] [address] Richard Kam MD [address] [place] [address] 12/19/2024 8:20 AM CDT Therapy Visit [address] [place] [address] Shanta Cooper, PT 12/24/2024 5:00 PM CDT Therapy Visit [address] [address] Pattie Casillas, PT 12/25/2024 10:20 AM CDT Therapy Visit [address] [address] Shanta Cooper, PT 01/03/2025 1:00 PM CDT Office Visit [address] [phone] Estella Hassan, [facility] [address] [place] [address] 01/03/2025 1:30 PM CDT Office Visit [address] [phone] Va Glez MD [address] [place] [id number] 01/08/2025 1:15 PM CDT Office Visit [facility] [address] [facility] [address] [place] [address] Hakeem Chacko MBBS [address] [place] [address] Scheduled Procedures Name Priority Associated Diagnoses Date/Ti me INJECTION, EPIDURAL, TRANSFO RAMINAL APPROACH Cervical radiculitis RELEASE, CARPAL TUNNEL, ENDOSCOPIC Right carpal tunnel syndrome documented as of this encounter Visit Diagnoses Not on filedocumented in this encounter Additional Health Concerns Infection Onset Date Last Indicated Resolved Time Rule Out COVID-19 06/22/2021 06/22/2021 06/23/2021 8:58 PM CDT Rule Out COVID-19 01/22/2022 01/22/2022 01/24/2022 1:05 PM DIGITAL SPECIALIST Rule Out COVID-19 01/25/2022 01/25/2022 01/25/2022 5:21 AM DIGITAL SPECIALIST Influenza 01/25/2022 01/25/2022 02/01/2022 11:4 1 PM DIGITAL SPECIALIST Rule Out COVID-19 07/29/2022 07/29/2022 07/31/2022 11:17 AM CDT Rule Out COVID-19 03/23/2023 03/23/2023 03/23/2023 6:30 PM DIGITAL SPECIALIST COVID-19 03/23/2023 03/23/2023 04/13/2023 11:4 0 PM DIGITAL SPECIALIST Rule Out COVID-19 06/05/2023 06/05/2023 06/05/2023 5:53 PM CDT Rule Out COVID-19 11/06/2023 11/06/2023 11/06/2023 11:05 PM CDT Rule Out COVID-19 11/20/2023 11/20/2023 11/20/2023 6:43 PM CDT Rule Out COVID-19 12/27/2023 12/27/2023 12/29/2023 1:37 PM CDT Rule Out COVID-19 03/01/2024 03/01/2024 03/01/2024 1:11 PM DIGITAL SPECIALIST Rule Out COVID-19 07/18/2024 07/18/2024 07/19/2024 5:52 PM CDT Rule Out COVID-19 10/17/2024 10/17/202410/17/2024 11:23 PM CDT Rule Out C-difficile 11/04/2024 11/04/2024 025 1:55 AM CDT Assessment Noted Time PHQ-9 Depression Total Score: 7 08/08/19 21 7:03 AM CDT documented as of this encounter Care Teams Store Hand Relationship Specialty [place] [address] [place] [address] PCP - General Family Practice 07/11/14 [place] [address] [place] [address] Assigned PCP 12/16/11 Kerry Bernal RN Personal Advocate & Liaison (PAL) 01/08/19 07/10/23 Ravi Barillas DPM [address] [facility] 300 [place] [address] Assigned Musculoskeletal Provider 03/23/20 10/30/21 Christy Campuzano PA-C [address] [place] [address] [id number] Referring Physician Family Medicine 04/22/20 Hans Cannon MD [address] [place] [address] Resident Pulmonary Disease 04/22/20 Mitra Kendall, TECHNOLOGY INTEGRATION SPECIALIST Lead Cartographic Aide Primary Care - CC 01/08/1901/12 Burt Jovel MD Internal Medicine 05/08/20 12/13/23 Estella Hassan, [facility] [address] [place] [address] Pharmacist Pharmacist 05/26/20 Reji Chavez MD 6405 [facility]00 [place] [address] Assigned Heart and Vascular Provider 05/18/20 10/30/21 Elaina Moreno MD [address] [place] [address] Assigned Surgical Provider 05/18/20 11/19/22 Elaina Moreno MD [address] [place] [address] Cardiovascular & Thoracic Surgery 08/06/20 Kelsi Hassan MD [address] [place], [place] [address] [place] [address] Assigned Pulmonology Provider 06/28/21 02/05/22 John Webb MD [address] [address] Cardiovascular Disease 08/25/21 John Webb MD [address] 131955 Cardiovascular Disease 08/25/21 Estella Hassan, [facility] [address] [place] [address] Assigned MTM Pharmacist 09/05/21 Nav Hughes MD [address] [place] [address] Assigned Heart and Vascular Provider 10/31/21 09/03/23 Cassandra Mendoza MD ORTHOPAEDIC SURGERY [facility] [address] [address] Assigned Musculoskeletal Provider 10/31/21 08/13/22 Estella Hassan, [facility] [address] [place] [address] Assigned MTM Pharmacist 12/09/21 Mitra Kendall, [facility] Lead Cartographic Aide Primary Care - CC 01/26/2210/28 Lindsay Carey OD [address] [facility] [place] [address] Ophthalmology 01/29/22 Ravi Brownlee MD [address] [place] [address] Assigned Pulmonology Provider 02/06/22 09/03/23 Arabella Fishman MA Financial Resource Worker 02/22/22 02/23/22 Richard Kam MD [address] [place] [address] Assigned Musculoskeletal Provider 08/14/22 Marisol Patel, [facility] [address] [place] [address] [address] Pharmacist Pharmacist 11/22/22 01/09/23 [place] [address] [place] [address] [address] [address] Assigned Neuroscience Provider 01/01/23 12/03/24 Rosemarie Mcdowell RN Modular Home Crew Member Diabetes Education 03/17/23 Ravi Brownlee MD [address] [address] Assigned Heart and Vascular Provider 09/04/23 01/03/24 Mitra Kendall, [facility] Lead Cartographic Aide Primary Care - CC 12/12/23 Lizet Mann PA-C [address] [place] [address] Assigned Cancer Care Provider 01/04/24 Ravi Brownlee MD [address] [address] Assigned Pulmonology Provider 01/04/24 Nav Hughes MD 6405 [facility] [address] [place] [place] [address] Assigned Heart and Vascular Provider 01/04/24 05/05/24 Manuel Ahn OD 6341 [facility] [place] [address] Team Driver 01/05/24 Arabella Fishman MA Financial Resource Worker 01/06/24 03/19/24 Melvin Thalia, [facility] [address] [place], [place] [phone] Pharmacist Pharmacy 01/26/24 Gaurav Valenzuela APRN OUTREACH REPRESENTATIVE 606 [facility] 106 [place], [place] 715624 Assigned Sleep Provider 02/04/24 Manuel Ahn OD 6341 [place], [place] 140972 Assigned Surgical Provider 02/04/24 06/02/24 Debbie Mann MD 1600 [facility] 200 [place], [place] [phone] Cardiovascular Disease 02/24/24 Hakeem Chacko MBBS 2945 [place], [place] [phone] Assigned Rheumatology Provider 04/05/24 Debbie Mann MD 1600 [facility] 200 [place], [place] [address] Assigned Heart and Vascular Provider 05/06/24 Timothy Tejada MD 6341 [place] [address] Ophthalmology 05/29/24 Timothy Tejada MD 6341 [place] [phone] Assigned Surgical Provider 06/03/24 Elsie Roberts APRN OUTREACH REPRESENTATIVE 1600 [facility] [place] [address] [address] Nurse Practitioner Pain Medicine 10/16/24 Cristy Morton MD 1440 [facility] [address] [id number] Assigned Pediatric Specialist Provider 11/03/24 Georgie Anguiano PA-C [address] 466685 Assigned Neuroscience Provider 12/04/24 documented as of this encounter
--- OUTSIDE RECORDS SUMMARY | 2024-12-06 00:24 | XMS_ITS | Encounter Summary ---
Author Organization [facility] Address [address] [place] [address] Care Team Providers Care Vp Software Name Role Phone Va Glez MD Primary Care Provider Va Glez MD Unavailable Kerry Bernal RN Unavailable [phone] Ravi Barillas DPM Unavailable [phone] Christy CampuzanoC Unavailable [phone] Hans Cannon MD Unavailable [phone] Mitra Kendall HEATING AND COOLING SYSTEMS ENGINEER Unavailable [phone] Faith Templeton CHW Unavailable [phone] Burt Jovel MD Unavailable [phone] Burt Jovel MD Unavailable [phone] Estella Hassan [facility] Unavailable [phone] Sheila Matias Unavailable Unavailable Reji Chavez MD Unavailable [phone] Josh Cordero MD, Madhuri Unavailable [phone] Josh Cordero MD, Madhuri Unavailable [phone] Kelsi Hassan MD Unavailable [phone] John Webb MD Unavailable [phone] John Webb MD Unavailable Estella Hassan [facility] Unavailable Nav Hughes MD Unavailable [phone] Cassandra Mendoza MD Unavailable MoEstella H Unavailable Mitra Kendall HEATING AND COOLING SYSTEMS ENGINEER Unavailable Lindsay Carey OD Unavailable Ravi Brownlee MD Unavailable Arabella Fishman MA Unavailable [phone] Richard Kam MD Unavailable Marisol Patel RPH Unavailable Gaby Vila DO Unavailable Rosemarie Mcdowell RN Unavailable Ravi Brownlee MD Unavailable Mitra Kendall HEATING AND COOLING SYSTEMS ENGINEER Unavailable Lizet Mann PA-C Unavailable Ravi Brownlee MD Unavailable Nav Hughes MD Unavailable [phone] Manuel Ahn OD Unavailable Arabella Fishman MA Unavailable [phone] Thalia Charles [facility] Unavailable Gaurav Valenzuela APRN SORTING MACHINE OPERATOR Unavailable Manuel Ahn OD Unavailable Debbie Mann MD Unavailable Hakeem Chacko Unavailable Debbie Mann MD Unavailable Timothy Tejada MD Unavailable Timothy Tejada MD Unavailable [phone] Elsie Roberts APRN, CNP Unavailable + Cristy Morton MD Unavailable [phone] Georgie Anguiano PA-C Unavailable [phone] Encounter Details Date Type Department Care Team (Late st Contact Info) Description 09/27/2019 MyC Medical Advice [address] [address] Jenifer Rodriguez Social History Tobacco [...] Answer Date Recorded PHQ-2 Score 0 09/13/2019 [facility] [place] of Occupat ional Health - Occupational Stress [...] on file 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 Gender Identity Not on file Sexual [...] Description 12/11/2024 2:10 PM CDT Therapy Visit [facility] Rehabilitation Services [address] [place] [address] Shanta Cooper, MOIZ 12/14/2024 11:20 AM CDT Office Visit [facility] [address] [facility] [place] [address] Lizet Mann PA-C [id number] [place], [place] [address] [place] [address] 12/17/2024 2:10 PM CDT Office Visit [facility] Orthopedic [facility] 909 [facility] 4th [place] [address] iRchard Kam MD [address] [place] [address] 12/19/2024 8:20 AM CDT Therapy Visit [address] [address] Shanta Cooper, PT 12/24/2024 5:00 PM CDT Therapy Visit [address] [address] Pattie Casillas, PT 12/25/2024 10:20 AM CDT Therapy Visit [address] [address] Shanta Cooper, PT 01/03/2025 1:00 PM CDT Office Visit [address] [address] Estella Hassan, [facility] [address] [place] [address] 01/03/2025 1:30 PM CDT Office Visit [address] [phone] Va Glez MD [address] [place] [id number] 01/08/2025 1:15 PM CDT Office Visit [address] 200 [place] [address] Hakeem Chacko MBBS 2945 [place] [address] Scheduled Procedures Name Priority Associated Diagnoses Date/Ti me INJECTION, EPIDURAL, TRANSFO RAMINAL APPROACH Cervical radiculitis RELEASE, CARPAL TUNNEL, ENDOSCOPIC Right carpal tunnel syndrome documented as of this encounter Visit Diagnoses Not on filedocumented in this encounter Additional Health Concerns Infection Onset Date Last Indicated Resolved Time Rule Out COVID-19 04/07/2020 04/07/2020 04/08/2020 7:51 PM CITY COUNCIL MEMBER Rule Out COVID-19 04/21/2020 04/21/2020 04/22/2020 5:44 PM CITY COUNCIL MEMBER Rule Out COVID-19 06/22/2021 06/22/2021 06/23/2021 8:58 PM CDT Rule Out COVID-19 01/22/2022 01/22/2022 01/24/2022 1:05 PM CITY COUNCIL MEMBER Rule Out COVID-19 01/25/2022 01/25/2022 01/25/2022 5:21 AM CITY COUNCIL MEMBER Influenza 01/25/2022 01/25/2022 02/01/2022 11:4 1 PM CITY COUNCIL MEMBER Rule Out COVID-19 07/29/2022 07/29/2022 07/31/2022 11:17 AM CDT Rule Out COVID-19 03/23/2023 03/23/2023 03/23/2023 6:30 PM CITY COUNCIL MEMBER COVID-19 03/23/2023 03/23/2023 04/13/2023 11:4 0 PM CITY COUNCIL MEMBER Rule Out COVID-19 06/05/2023 06/05/2023 06/05/2023 5:53 PM CDT Rule Out COVID-19 11/06/2023 11/06/2023 11/06/2023 11:05 PM CDT Rule Out COVID-19 11/20/2023 11/20/2023 11/20/2023 6:43 PM CDT Rule Out COVID-19 12/27/2023 12/27/2023 12/29/2023 1:37 PM CDT Rule Out COVID-19 03/01/2024 03/01/2024 03/01/2024 1:11 PM CITY COUNCIL MEMBER Rule Out COVID-19 07/18/2024 07/18/2024 07/19/2024 5:52 PM CDT Rule Out COVID-19 10/17/2024 10/17/2024 10/17/2024 11:23 PM CDT Rule Out C-difficile 11/04/2024 11/04/2024 025 1:55 AM CDT Assessment Noted Time PHQ-9 Depression Total Score: 4 09/14/19 20 7:06 AM CDT documented as of this encounter Care Teams Vp Software Relationship Specialty [place] [address] [place] [address] PCP - General Family Practice 07/11/14 [place] [address] [place] [address] Assigned PCP 12/16/11 Kerry Bernal, INOCENCIO Personal Advocate & Liaison (PAL) 01/08/19 07/10/23 Ravi Barillas DPM [address] [facility] 300 [place] [address] Assigned Musculoskeletal Provider 03/23/20 10/30/21 Christy Campuzano PA-C [address] [place] [address] [id number] Referring Physician Family Medicine 04/22/20 Hans Cannon MD [address] [place] [address] Resident Pulmonary Disease 04/22/20 Mitra Kendall, HEATING AND COOLING SYSTEMS ENGINEER Lead Car Seat Upholsterer Primary Care - CC 01/08/1901/12 Faith Templeton, [facility] Community Health Worker 04/30/2006/05 Burt Jovel MD Internal Medicine 05/08/20 12/13/23 Burt Jovel MD [address] [place] [address] Assigned Heart and Vascular Provider 05/11/20 05/17/20 Estella Hassan, [facility] [address] [place] [address] Pharmacist Pharmacist 05/26/20 Sheila Matias Financial Resource Worker Primary Care - CC 06/02/20 06/02/20 Reji Chavez MD 6405 [facility] [address] [place] [address] Assigned Heart and Vascular Provider 05/18/20 10/30/21 Elaina Moreno MD [address] [place] [address] Assigned Surgical Provider 05/18/20 11/19/22 Elaina Moreno MD 909 [place], [place] 835535 Cardiovascular & Thoracic Surgery 08/06/20 Kelsi Hassan MD 2450 [facility] [address] Assigned Pulmonology Provider 06/28/21 02/05/22 John Webb MD [address] 298735 Cardiovascular Disease 08/25/21 John Webb MD [address] [address] Cardiovascular Disease 08/25/21 Estella Hassan, [facility] [address] [place] [address] Assigned MTM Pharmacist 09/05/21 Nav Hughes MD [address] [address] Assigned Heart and Vascular Provider 10/31/21 09/03/23 Cassandra Mendoza MD ORTHOPAEDIC SURGERY [facility] [address] Assigned Musculoskeletal Provider 10/31/21 08/13/22 Estella Hassan, [facility] [address] [place] [address] Assigned MTM Pharmacist 12/09/21 Mitra Kendall, [facility] Lead Car Seat Upholsterer Primary Care - CC 01/26/2210/28 Lindsay Carey OD [address] [facility] [place] [address] Ophthalmology 01/29/22 Ravi Brownlee MD [address] [place] [address] Assigned Pulmonology Provider 02/06/22 09/03/23 Arabella Fishman MA Financial Resource Worker 02/22/22 02/23/22 Richard Kam MD [address] [place] [address] Assigned Musculoskeletal Provider 08/14/22 Marisol Patel, [facility] [address] [place] [phone] Pharmacist Pharmacist 11/22/22 01/09/23 [place] [address] [address] Assigned Neuroscience Provider 01/01/23 12/03/24 Rosemarie Mcdowell, RN Coal Chemist Diabetes Education 03/17/23 Ravi Brownlee MD [address] [place] [address] Assigned Heart and Vascular Provider 09/04/23 01/03/24 Mitra Kendall, HEATING AND COOLING SYSTEMS ENGINEER Lead Car Seat Upholsterer Primary Care - CC 12/12/23 Lizet Mann PA-C [address] [facility] [place] [address] Assigned Cancer Care Provider 01/04/24 Ravi Brownlee MD [address] [place] [address] Assigned Pulmonology Provider 01/04/24 Nav Hughes MD 6405 [facility] [address] [place] [address] Assigned Heart and Vascular Provider 01/04/24 05/05/24 Manuel Ahn, OD 6341 [place] [address] Clinical Molecular Geneticist 01/05/24 Arabella Fishman MA Financial Resource Worker 01/06/24 03/19/24 Thalia Charles [facility] [address] [place], [place] [phone] Pharmacist Pharmacy 01/26/24 Gaurav Valenzuela APRN SORTING MACHINE OPERATOR 606 [facility] 106 [place] [address] Assigned Sleep Provider 02/04/24 Manuel Ahn, OD 6341 [place] [address] Assigned Surgical Provider 02/04/24 06/02/24 Debbie Mann MD 1600 [facility] 200 [place], [place] [phone] Cardiovascular Disease 02/24/24 Hakeem Chacko MBBS [address]45 [place] [address] Assigned Rheumatology Provider 04/05/24 Debbie Mann MD 1600 [facility] 200 [facility] [place] [address] Assigned Heart and Vascular Provider 05/06/24 Timothy Tejada MD 6341 [facility] [place] [address] Ophthalmology 05/29/24 Timothy Tejada MD 6341 [facility] [place] [address] Assigned Surgical Provider 06/03/24 Elsie Roberts APRN CNP 1600 [facility] 101 [facility] [place] [address] Nurse Practitioner Pain Medicine 10/16/24 Cristy Morton MD 1440 [facility] [address]O [id number] Assigned Pediatric Specialist Provider 11/03/24 Georgie Anguiano PA-C 6545 [facility] [address] [address] Assigned Neuroscience Provider 12/04/24 documented as of this encounter
--- OUTSIDE RECORDS SUMMARY | 2024-12-06 00:24 | XMS_ITS | Encounter Summary ---
Author Organization [place] Address [address] [place] [address] Care Team Providers Care Ammonia Worker Name Role Phone Va Glez MD Primary Care Provider Va Glez MD Unavailable Kerry Bernal RN Unavailable Christy Campuzano PA-C Unavailable [phone] Hans Cannon MD Unavailable [phone] Burt Jovel MD Unavailable [phone] Estella Hassan [facility] Unavailable Josh Cordero MD, Madhuri Unavailable [phone] John Webb MD Unavailable John Webb MD Unavailable [phone] Nav Hughes MD Unavailable [phone] Estella Hassan [facility] Unavailable Lindsay Carey OD Unavailable Ravi Brownlee MD Unavailable Richard Kam MD Unavailable Gaby Vila DO Unavailable [phone] Rosemarie Mcdowell RN Unavailable Ravi Brownlee MD Unavailable [phone] EnochMitra oates Jewel HEAD TENNIS PROFESSIONAL Unavailable Lizet Mann PA-C Unavailable Ravi Brownlee MD Unavailable Nav Hughes MD Unavailable [phone] Manuel Ahn OD Unavailable Arabella Fishman MA Unavailable [phone] Thalia Charles [facility] Unavailable Gaurav Valenzuela APRN GRANITE WORKER Unavailable Manuel Ahn OD Unavailable Debbie Mann MD Unavailable Hakeem Chacko Unavailable Debbie Mann MD Unavailable Timothy Tejada MD Unavailable Timothy Tejada MD Unavailable Elsie Roberts APRN GRANITE WORKER Unavailable + Cristy Morton MD Unavailable [phone] Georgie Anguiano PA-C Unavailable [phone] Encounter Details Date Type Department Care Team (Late st Contact Info) Description 05/20/2023 [facility] [address] [facility] [address] [place] [address] Bc Cochran Social History Tobacco Use Types [...] How often do you attend chur or synagogue services? 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 Gender Identity Not on file Sexual Orientation Not on file Occupation Industry Job Start Date Job End Date Not on file Not on file Not on file Not on file documented as of this encounter Plan of Treatment Upcoming Encounters Date Type Department Care Team (Late st Contact Info) Description 12/11/2024 2:10 PM CDT Therapy Visit [facility] [address] [phone] Shanta Cooper, MOIZ 12/14/2024 11:20 AM CDT Office Visit [facility] [address] [place] [address] [place] [address] Lizet Mann PA-C [address] [place] [address] 12/17/2024 2:10 PM CDT Office Visit [facility] [address] 4th [place] [phone] Richard Kam MD [address] [place] [address] 12/19/2024 8:20 AM CDT Therapy Visit [address] [address] Shanta Cooper, PT 12/24/2024 5:00 PM CDT Therapy Visit [address] [phone] Pattie Casillas, PT 12/25/2024 10:20 AM CDT Therapy Visit [address] [address] Shanta Cooper, PT 01/03/2025 1:00 PM CDT Office Visit [address] [phone] [address] 01/03/2025 1:30 PM CDT Office Visit [address] [phone] Va Glez MD [address] [place] [address] 01/08/2025 1:15 PM CDT Office Visit [facility] [address] [place] [phone] Hakeem Chacko MBBS [address] [place] [address] Scheduled Procedures Name Priority Associated Diagnoses Date/Ti [...] for health insurance by looking in to [employer] and talking with a FRW. Completed 3. [...] accurate information and submit it to the [facility]. 3. I will update CCC Team at outreach. Infection Onset Date Last Indicated Resolved Time Rule Out COVID-19 06/05/2023 06/05/2023 06/05/2023 5:53 PM CDT Rule Out COVID-19 11/06/2023 11/06/2023 11/06/2023 11:05 PM CDT Rule Out COVID-19 11/20/2023 11/20/2023 11/20/2023 6:43 PM CDT Rule Out COVID-19 12/27/2023 12/27/2023 12/29/2023 1:37 PM CDT Rule Out COVID-19 03/01/2024 03/01/2024 03/01/2024 1:11 PM CARPENTER'S ASSISTANT Rule Out COVID-19 07/18/2024 07/18/2024 07/19/2024 5:52 PM CDT Rule Out COVID-19 10/17/2024 10/17/2024 10/17/2024 11:23 PM CDT Rule Out C-difficile 11/04/2024 11/04/2024 025 1:55 AM CDT Assessment Noted Time PHQ-9 Depression Total Score: 2 03/24/19 24 4:21 PM CARPENTER'S ASSISTANT documented as of this encounter Care Teams Ammonia Worker Relationship Specialty [place] [address] [place] [address] PCP - General Family Practice 07/11/14 [place] [address] [place] [address] Assigned PCP 12/16/11 Kerry Bernal, INOCENCIO Personal Advocate & Liaison (PAL) 01/08/19 07/10/23 Christy Campuzano PA-C [address] [place] [address] Referring Physician Family Medicine 04/22/20 Hans Cannon MD [address] [place] [address] Resident Pulmonary Disease 04/22/20 Burt Jovel MD [address] [place] [address] Internal Medicine 05/08/20 12/13/23 Estella Hassan, [facility] [place] [address] Pharmacist Pharmacist 05/26/20 Elaina Moreno MD [address] [place] [address] Cardiovascular & Thoracic Surgery 08/06/20 John Webb MD [address] 412175 Cardiovascular Disease 08/25/21 John Webb MD [address] [address] Cardiovascular Disease 08/25/21 Nav Hughes MD [address] [place] [address] Assigned Heart and Vascular Provider 10/31/21 09/03/23 Estella Hassan [facility] [address] [place] [address] Assigned MTM Pharmacist 12/09/21 [place] [address] [facility] [address] [place] [address] Ophthalmology 01/29/22 Ravi Brownlee MD [address] [place] [address] Assigned Pulmonology Provider 02/06/22 09/03/23 Richard Kam MD [address] [place] [address] Assigned Musculoskeletal Provider 08/14/22 [place] [address] [address] Assigned Neuroscience Provider 01/01/23 12/03/24 Rosemarie Mcdowell, RN Batter Out Diabetes Education 03/17/23 Ravi Brownlee MD [address] [place] [address] Assigned Heart and Vascular Provider 09/04/23 01/03/24 Mitra Kendall, HEAD TENNIS PROFESSIONAL Lead Automobile Repossessor Primary Care - CC 12/12/23 Lizet Mann PA-C [address] [place] [address] Assigned Cancer Care Provider 01/04/24 Ravi Brownlee MD [address] [place] [address] 276 [place] [address] Assigned Pulmonology Provider 01/04/24 Nav Hughes MD 6[address] [facility] [address] [place] [address] Assigned Heart and Vascular Provider 01/04/24 05/05/24 Manuel Ahn, OD 6341 [place] [address] Superintendent Drivers 01/05/24 Arabella Fishman MA Financial Resource Worker 01/06/24 03/19/24 Thalia Charles [facility] [address] [place], [place] [phone] Pharmacist Pharmacy 01/26/24 Gaurav Valenzuela APRN GRANITE WORKER [address] [facility] 106 [place], [place] 6[address] Assigned Sleep Provider 02/04/24 Manuel Ahn, OD 6341 [place], [place] 987762 Assigned Surgical Provider 02/04/24 06/02/24 Debbie Mann MD [address] [facility] 200 [place], [place] [phone] Cardiovascular Disease 02/24/24 Hakeem Chacko MBBS 2945 [place] [address] Assigned Rheumatology Provider 1/23/25 Debbie Mann MD [address] [facility] 200 [place] [address] Assigned Heart and Vascular Provider 05/06/24 Timothy Tejada MD 6341 [facility] [place] [phone] Ophthalmology 05/29/24 Timothy Tejada MD [address] [facility] [place] [phone] Assigned Surgical Provider 06/03/24 Elsie Roberts APRN CNP [address] [facility] 101 [place] [address] Nurse Practitioner Pain Medicine 10/16/24 Cristy Morton MD [address] [place] [address] SHANKAR ROMO [id number] Assigned Pediatric Specialist Provider 11/03/24 Georgie Anguiano PA-C [address] [facility] SH[place]AR [place]ER [address] Assigned Neuroscience Provider 12/04/24 documented as of this encounter
--- OUTSIDE RECORDS SUMMARY | 2024-12-06 00:24 | XMS_ITS | Encounter Summary ---
Author Organization [place] Address [address] [place] [address] Care Team Providers Care Esthetician Facialist Name Role Phone Va Glez MD Primary Care Provider Va Glez MD Unavailable Kerry Bernal RN Unavailable [phone] Ravi Barillas DPM Unavailable [phone] Christy Campuzano PA-C Unavailable [phone] Hans Cannon MD Unavailable Mitra Kendall INSPECTOR EXHAUST EMISSIONS Unavailable [phone] Burt Jovel MD Unavailable Estella Hassan [facility] Unavailable Reji Chavez MD Unavailable [phone] Josh Cordero MD, Madhuri Unavailable [phone] Josh Cordero MD, Madhuri Unavailable [phone] Kelsi Hassan MD Unavailable [phone] John Webb MD Unavailable John Webb MD Unavailable Estella Hassan [facility] Unavailable Nav Hughes MD Unavailable [phone] Cassandra Mendoza MD Unavailable Estella Hassan RPH Unavailable Mitra Kendall INSPECTOR EXHAUST EMISSIONS Unavailable Aurelio Lindsay Kenzie OD Unavailable Ravi Brownlee MD Unavailable Kye Arabella MA Unavailable [phone] Richard Kam MD Unavailable Marisol Patel RPH Unavailable Gaby Vila DO Unavailable Rosemarie Mcdowell RN Unavailable Ravi Brownlee MD Unavailable Mitra Kendall INSPECTOR EXHAUST EMISSIONS Unavailable Lizet MannC Unavailable Ravi Brownlee MD Unavailable Nav Hughes MD Unavailable [phone] Manuel Ahn OD Unavailable Kye Arabella MA Unavailable [phone] Thalia Charles RP Unavailable Gaurav Valenzuela APRN CORKING MACHINE OPERATOR Unavailable Manuel Ahn OD Unavailable Debbie Mann MD Unavailable Hakeem Chacko Unavailable Debbie Mann MD Unavailable Timothy Tejada MD Unavailable Timothy Tejada MD Unavailable Elsie Roberts APRN CORKING MACHINE OPERATOR Unavailable + Cristy Morton MD Unavailable Georgie Anguiano PA-C Unavailable Encounter Details Date Type Department Care Team (Late st Contact Info) Description 09/29/2020 [facility] Medical Advice [address] [address] Estella Hassan, [facility] [address] [place] [address] Morbid obesity due to excess calories (H) [...] points; Administer PHQ-9 if positive 1 08/06/2020 [facility]at ional [...] on file Legal Sex 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 PRESSURE 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 Gender Identity Not on file Sexual [...] 2:10 PM CDT Therapy Visit [facility] Services [address] [place] [address] Shanta Cooper PT 12/14/2024 11:20 AM CDT Office Visit [facility] [address] [facility] [place] [phone] Lizet Mann PA-C [id number] [place], [place] [address] [address] 12/17/2024 2:10 PM CDT Office Visit [facility] [address] [facility] [address] 4th [place] [phone] Richard Kam MD [address] [place] [address] 12/19/2024 8:20 AM CDT Therapy Visit [address] [place] [address] Shanta Cooper, PT 12/24/2024 5:00 PM CDT Therapy Visit [address] [phone] Pattie Casillas, PT 12/25/2024 10:20 AM CDT Therapy Visit [address] [phone] Shanta Cooper, PT 01/03/2025 1:00 PM CDT Office Visit [address] [phone] Estella Hassan, [facility] 30[address] [place] [address] 01/03/2025 1:30 PM CDT Office Visit [address] [phone] [place] [address] [place] [phone] 01/08/2025 1:15 PM CDT Office Visit [facility] [address] [facility] [address] [place] [phone] Hakeem Chacko MBBS 2945 [place] [address] Scheduled Procedures Name Priority Associated Diagnoses Date/Ti [...] Out COVID-19 01/22/2022 01/22/2022 01/24/2022 1:05 PM PRESSURE 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 Rule Out COVID-19 01/25/2022 01/25/2022 01/25/2022 5:21 AM PRESSURE 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 Influenza 01/25/2022 01/25/2022 02/01/2022 11:4 1 PM PRESSURE 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 Rule Out COVID-19 07/29/2022 07/29/2022 07/31/2022 11:17 AM CDT Rule Out COVID-19 03/23/2023 03/23/2023 03/23/2023 6:30 PM PRESSURE 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 COVID-19 03/23/2023 03/23/2023 04/13/2023 11:4 0 PM PRESSURE 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 Rule Out COVID-19 06/05/2023 06/05/2023 06/05/2023 5:53 PM CDT Rule Out COVID-19 11/06/2023 11/06/2023 11/06/2023 11:05 PM CDT Rule Out COVID-19 11/20/2023 11/20/2023 11/20/2023 6:43 PM CDT Rule Out COVID-19 12/27/2023 12/27/2023 12/29/2023 1:37 PM CDT Rule Out COVID-19 03/01/2024 03/01/2024 03/01/2024 1:11 PM PRESSURE 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 Rule Out COVID-19 07/18/2024 07/18/2024 07/19/2024 5:52 PM CDT Rule Out COVID-19 10/17/2024 10/17/2024 10/17/2024 11:23 PM CDT Rule Out C-difficile 11/04/2024 11/04/2024 025 1:55 AM CDT Assessment Noted Time PHQ-9 Depression Total Score: 7 08/08/19 21 7:03 AM CDT documented as of this encounter Care Teams Esthetician Facialist Relationship Specialty [place] [address] [place] [address] PCP - General Family Practice 07/11/14 [place] [address] [place] [address] Assigned PCP 12/16/11 Kerry Bernal RN Personal Advocate & Liaison (PAL) 01/08/19 07/10/23 Ravi Barillas DPM [address] [id number] Assigned Musculoskeletal Provider 03/23/20 10/30/21 Christy Campuzano PA-C [address] [place] [address] 129892 Referring Physician Family Medicine 04/22/20 Hans Cannon MD [address] [place] [address] [id number] Resident Pulmonary Disease 04/22/20 Mitra Kendall, INSPECTOR EXHAUST EMISSIONS Lead Respiratory Care Practitioner Primary Care - CC 01/08/1901/12 Burt Jovel MD Internal Medicine 05/08/20 12/13/23 Estella Hassan, [facility] [address] [place] [address] Pharmacist Pharmacist 05/26/20 Reji Chavez MD [address] [facility] JAYYCelestino Samir [address] [place] [address] Assigned Heart and Vascular Provider 05/18/20 10/30/21 Elaina Moreno MD [address] [place] [address] Assigned Surgical Provider 05/18/20 11/19/22 Elaina Moreno MD [address] [place] [address] Cardiovascular & Thoracic Surgery 08/06/20 [place] [address] [place] [address] Assigned Pulmonology Provider 06/28/21 02/05/22 John Webb MD [address] [place] [id number] Cardiovascular Disease 08/25/21 John Webb MD [address] [place] [id number] Cardiovascular Disease 08/25/21 Estella Hassan, [facility] [address] [place] [address] Assigned MTM Pharmacist 09/05/21 Nav Hughes MD [address] [place] [address] Assigned Heart and Vascular Provider 10/31/21 09/03/23 Cassandra Mendoza MD ORTHOPAEDIC SURGERY [facility] [address] [address] Assigned Musculoskeletal Provider 10/31/21 08/13/22 Estella Hassan, [facility] [address] [place] [address] Assigned MTM Pharmacist 12/09/21 Mitra Kendall, [facility] Lead Respiratory Care Practitioner Primary Care - CC 01/26/2210/28 Lindsay Carey OD [address] [place] [address] [place] [id number] Ophthalmology 01/29/22 aRvi Brownlee MD [address] [place] [address] Assigned Pulmonology Provider 02/06/22 09/03/23 Arabella Fishman MA Financial Resource Worker 02/22/22 02/23/22 Richard Kam MD [address] [place] [address] Assigned Musculoskeletal Provider 08/14/22 [facility] [address] [place] [address] Pharmacist Pharmacist 11/22/22 01/09/23 [place] [address] [facility], [address] [address] Assigned Neuroscience Provider 01/01/23 12/03/24 Rosemarie Mcdowell, RN Director Inbound Sales Diabetes Education 03/17/23 Ravi Brownlee MD [address] [place] [address] Assigned Heart and Vascular Provider 09/04/23 01/03/24 Mitra Kendall, [facility] Lead Respiratory Care Practitioner Primary Care - CC 12/12/23 Lizet Mann PA-C [address] [place] [address] [place] [id number] Assigned Cancer Care Provider 01/04/24 Ravi Brownlee MD [address] [place] [address] 692515 Assigned Pulmonology Provider 01/04/24 Nav Hughes MD [address] [facility] [address] [place] [address] Assigned Heart and Vascular Provider 01/04/24 05/05/24 Manuel Ahn OD 6341 [facility] SHANKAR RICHARDS [address] Buck Presser 01/05/24 Arabella Fishman MA Financial Resource Worker 01/06/24 03/19/24 Melvin Thalia [facility] [address] [place], [place] [phone] Pharmacist Pharmacy 01/26/24 Gaurav Valenzuela APRN CORKING MACHINE OPERATOR 606 [facility] 106 [place] [address] Assigned Sleep Provider 02/04/24 Manuel Ahn OD 6341 [place], [place] 269822 Assigned Surgical Provider 02/04/24 06/02/24 Debbie Mann MD [address] [address] Cardiovascular Disease 02/24/24 Hakeem Chacko MBBS [address] [place] [address] Assigned Rheumatology Provider 04/05/24 Debbie Mann MD [address] [address] Assigned Heart and Vascular Provider 05/06/24 Timothy Tejada MD 6341 [place] [phone] Ophthalmology 05/29/24 Timothy Tejada MD [address]341 [place] [phone] Assigned Surgical Provider 06/03/24 Elsie Roberts APRN CORKING MACHINE OPERATOR 1600 [facility] 101 [address]AR [address] Nurse Practitioner Pain Medicine 10/16/24 Cristy Morton MD [facility] SHANKAR ROMO [id number] Assigned Pediatric Specialist Provider 11/03/24 Georgie Anguiano PA-C [address] 243835 Assigned Neuroscience Provider 12/04/24 documented as of this encounter
--- OUTSIDE RECORDS SUMMARY | 2024-12-06 00:24 | XMS_ITS | Encounter Summary ---
Author Organization [facility] Address [address] [place] [address] Care Team Providers Care Smelter Operator Name Role Phone Va Glez MD Primary Care Provider [phone] Va Glez MD Unavailable Christy CampuzanoC Unavailable [phone] Hans Cannon MD Unavailable [phone] Estella Hassan [facility] Unavailable [phone] Josh Cordero MD, Madhuri Unavailable [phone] John Webb MD Unavailable [phone] John Webb MD Unavailable [phone] Estella Hassan [facility] Unavailable Lindsay Carey OD Unavailable Richard Kam MD Unavailable Gaby Vila DO Unavailable Rosemarie Mcdowell RN Unavailable [phone] Mitra Kendall DRAWBENCH OPERATOR HELPER Unavailable [phone] Lizet Mann PA-C Unavailable Ravi Brownlee MD Unavailable Manuel Ahn OD Unavailable Thalia Charles [facility] Unavailable [phone] Gaurav Valenzuela Ray RENOVATOR MACHINE OPERATOR OVERHEAD CRANE OPERATOR Unavailable [phone] Debbie Mann MD Unavailable [phone] Hakeem Chacko MB Unavailable Debbie Mann MD Unavailable [phone] Timothy Tejada MD Unavailable [phone] Timothy Tejada MD Unavailable [phone] Elsie Roberts APRN OVERHEAD CRANE OPERATOR Unavailable + Cristy Morton MD Unavailable [phone] Encounter Details Date Type Department Care Team (Late st Contact Info) Description 09/04/2024 Results Follow-Up [facility] [address] [place] [address] Whitney Hood [employer] [address] [place] [address] Subj: Message about your results Social History Tobacco Use Types Packs/Day Years [...] Answer Date Recorded PHQ-2 Score 6 11/01/2024 [facility] [...] in an abandoned building, in an overnight intermediate, 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.) Yes 11/05/2024 Are you worried [...] on file 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 Gender Identity Not on file Sexual Orientation Not on file Occupation Industry Job Start Date Job End Date Not on file Not on file Not on file Not on file documented as of this encounter Plan of Treatment Upcoming Encounters Date Type Department Care Team (Late st Contact Info) Description 12/11/2024 2:10 PM CDT Therapy Visit [facility] [address] [place] [phone] Shanta Cooper, PT 12/14/2024 11:20 AM CDT Office Visit [facility] [address] [place] [address] Lizet Mann PA-C [id number] [place] [address] 12/17/2024 2:10 PM CDT Office Visit [facility] [address] [place] [phone] Richard Kam MD [address] [place] [address] 12/19/2024 8:20 AM CDT Therapy Visit [facility] [place] [address] [place] [phone] Shanta Cooper, PT 12/24/2024 5:00 PM CDT Therapy Visit [facility] [place] [address] [place] [phone] Pattie Casillas, PT 12/25/2024 10:20 AM CDT Therapy Visit [address] [place] [address] Shanta Cooper, MOIZ 01/03/2025 1:00 PM CDT Office Visit [facility] [address] [place] [address] Estella Hassan, [facility] [address] [place] [address] 01/03/2025 1:30 PM CDT Office Visit [facility] [address] [place] [phone] [place] [address] [place], [place] [phone] 01/08/2025 1:15 PM CDT Office Visit [facility] 2945 [facility] 200 [place] [address] Hakeem Chacko MBBS [address] [place] [address] Scheduled Procedures Name Priority Associated Diagnoses Date/Ti me INJECTION, EPIDURAL, TRANSFO RAMINAL APPROACH Cervical radiculitis RELEASE, CARPAL TUNNEL, ENDOSCOPIC Right carpal tunnel syndrome documented as of this encounter Goals Goal Patient Goal Type Associated Problems Recent Progress Patient-Stated? Author Health Maintenance Care Plan HP GENERAL PROBLEM 100%(10/29/19 10:17 AM CDT) No Mitra Kendall, DRAWBENCH OPERATOR HELPER Note: Update on 05/25/22 Barriers: Currently without [...] for health insurance by looking in to [employer] and talking with a FRW. Completed 3. I will look for a new job and will access resources that the [employer] offers. . Sarted new job 4. Continue [...] programs I qualify for by by calling [phone]. 3. I will see if I am eligible for unemployment after losing my job. I will call [phone] to ask for assistance with unemployment application. 4. I will apply for jobs. I will work with [employer] in finding a job (Empowerment.) 5. I will access [employer] and ask about financial resources (such as [...] I will continue working with therapist at [facility]. 2. I will establish with Psychiatry. Planning to schedule with Ronnie. 3. I will meet with community hot stick worker Manjula Gresham. 4. I will look in to attending an IOP program. I will discuss with my [facility] therapist and number provided for [facility] Behavioral Access - [phone] to schedule assessment fr IOP program. 5. I will go to [facility] if I have concerning mental health symptoms. 6. I will access [facility] Crisis if needed by calling [phone]. 7. I will consider calling [facility] Adult Mental health intake at [phone]. documented as of this encounter Visit Diagnoses [...] accurate information and submit it to the [facility]. 3. I will update CCC Team at outreach. Health Maintenance Due or Overdue 12/16/2023 Patient expresses financial resource strain 12/13 Mental Health Symptoms Need Improvement 04/05/19 Infection Onset Date Last Indicated Resolved Time Rule Out COVID-19 10/17/2024 10/17/2024 10/17/2024 11:23 PM CDT Rule Out C-difficile 11/04/2024 11/04/2024 025 1:55 AM CDT Assessment Noted Time PHQ-9 Depression Total Score: 9 09/05/19 1:35 PM CDT documented as of this encounter Care Teams Smelter Operator Relationship Specialty [place] [address] [place] [address] PCP - General Family Practice 07/11/14 [place] [address] [place] [address] Assigned PCP 12/16/11 Christy Campuzano PA-C [address] [place] [address] 480322 Referring Physician Family Medicine 04/22/20 Hans Cannon MD [address] [place] [address] Resident Pulmonary Disease 04/22/20 Estella Hassan, [facility] [address] [facility] [place] [address] Pharmacist Pharmacist 05/26/20 Elaina Moreno MD [address] [place] [address] Cardiovascular & Thoracic Surgery 08/06/20 John Webb MD [address] [place] [address] Cardiovascular Disease 08/25/21 John Webb MD [address] [address] Cardiovascular Disease 08/25/21 Estella Hassan, [facility] [address] [place] [address] Assigned MTM Pharmacist 12/09/21 Lindsay Carey OD [address] [place] [address] Ophthalmology 01/29/22 Richard Kam MD 500 [place], [place] 4[address] Assigned Musculoskeletal Provider 08/14/22 [place] [address] [address] Assigned Neuroscience Provider 01/01/23 12/03/24 Rosemarie Mcdowell, RN Dba Manager Diabetes Education 03/17/23 Mitra Knedall, DRAWBENCH OPERATOR HELPER Lead Media Liaison Officer Primary Care - CC 12/12/23 Lizet Mann PA-C [address] [facility] [place] [address] Assigned Cancer Care Provider 01/04/24 Ravi Brownlee MD 420 [facility] 276 [place] [address] Assigned Pulmonology Provider 01/04/24 Manuel Ahn OD 6341 [place] [address] Lymphedema Therapist 01/05/24 Thalia Charles [facility] [address] [place], [place] [phone] Pharmacist Pharmacy 01/26/24 Gaurav Valenzuela APRN OVERHEAD CRANE OPERATOR 606 [facility] 106 [place] [address] Assigned Sleep Provider 02/04/24 Debbie Mann MD 1600 [facility] 200 [place], [place] [phone] Cardiovascular Disease 02/24/24 Hakeem Chacko MBBS [address] [place] [address] Assigned Rheumatology Provider 04/05/24 Debbie Mann MD 1600 [facility] 200 [place], [place] [phone] Assigned Heart and Vascular Provider 05/06/24 Timothy Tejada MD 6341 [place] [phone] Ophthalmology 05/29/24 Timothy Tejada MD 6341 [facility] [place] [address] Assigned Surgical Provider 06/03/24 Elsie Roberts APRN OVERHEAD CRANE OPERATOR 1600 [facility] 101 [place] [address] Nurse Practitioner Pain Medicine 10/16/24 Cristy Morton MD [address] [place] [address] [place] [id number] Assigned Pediatric Specialist Provider 11/03/24 documented as of this encounter
--- OUTSIDE RECORDS SUMMARY | 2024-12-06 00:24 | XMS_ITS | Encounter Summary ---
Author Organization [facility] Address [address] [place] [address] Care Team Providers Care Director Of Residential Services Name Role Phone Va Glez MD Primary Care Provider Va Glez MD Unavailable Kerry Bernal RN Unavailable Ravi Barillas DPM Unavailable [phone] Christy Campuzano PA-C Unavailable Hans Cannon MD Unavailable Mitra Kendall STRAP STITCHER Unavailable Burt Jovel MD Unavailable Estella Hassan [facility] Unavailable Reji Chavez MD Unavailable Josh Cordero MD, Madhuri Unavailable [phone] Josh Cordero MD, Madhuri Unavailable [phone] Kelsi Hassan MD Unavailable [phone] John Webb MD Unavailable [phone] John Webb MD Unavailable Estella Hassan [facility] Unavailable Nav Hughes MD Unavailable [phone] Cassandra Mendoza MD Unavailable Estella Hassan RPH Unavailable Mitra Kendall STRAP STITCHER Unavailable Aurelio Lindsay Kenzie OD Unavailable Ravi Brownlee MD Unavailable Kye Arabella MA Unavailable [phone] Richard Kam MD Unavailable Marisol Patel RPH Unavailable Gaby Vila DO Unavailable Rosemarie Mcdowell RN Unavailable Ravi Brownlee MD Unavailable Mitra Kendall STRAP STITCHER Unavailable Lizet MannC Unavailable Ravi Brownlee MD Unavailable Nav Hughes MD Unavailable [phone] Manuel Ahn OD Unavailable Kye Arabella MA Unavailable [phone] Thalia Charles RP Unavailable Gaurav Valenzuela APRN MOLD PULLER Unavailable Manuel Ahn OD Unavailable Debbie Mann MD Unavailable Hakeem Chacko Unavailable Debbie Mann MD Unavailable Timothy Tejada MD Unavailable Timothy Tejada MD Unavailable Elsie Roberts APRN MOLD PULLER Unavailable + Cristy Morton MD Unavailable [phone] Georgie Anguiano PA-C Unavailable Encounter Details Date Type Department Care Team (Late st Contact Info) Description 09/12/2020 MyC Medical Advice [address] [address] Estella Hassan, [facility] [address] [place] [address] Social History Tobacco Use Types Packs/Day Years [...] on file 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 Gender Identity Not on file Sexual [...] Description 12/11/2024 2:10 PM CDT Therapy Visit [facility] [address] [place] [address] Shanta Cooper, MOIZ 12/14/2024 11:20 AM CDT Office Visit [facility] [address] [place] [address] Lizet Mann PA-C [address] [facility] [address] 12/17/2024 2:10 PM CDT Office Visit [facility] Orthopedic [facility] 909 [facility] 4th [place] [address] Richard Kam MD 500 [place] [address] 12/19/2024 8:20 AM CDT Therapy Visit [address] [place] [address] Shanta Cooper, PT 12/24/2024 5:00 PM CDT Therapy Visit [address] [address] Pattie Casillas, PT 12/25/2024 10:20 AM CDT Therapy Visit [address] [address] Shanta Cooper, PT 01/03/2025 1:00 PM CDT Office Visit [address] [phone] Estella Hassan, [facility] [address] [place] [address] 01/03/2025 1:30 PM CDT Office Visit [address] [address] Va Glez MD [address] [place] [id number] 01/08/2025 1:15 PM CDT Office Visit [facility] 2945 [facility] [address] [place] [address] Hakeem Chacko MBBS 9535 [place] [address] Scheduled Procedures Name Priority Associated Diagnoses Date/Ti me INJECTION, EPIDURAL, TRANSFO RAMINAL APPROACH Cervical radiculitis RELEASE, CARPAL TUNNEL, ENDOSCOPIC Right carpal tunnel syndrome documented as of this encounter Visit Diagnoses Not on filedocumented in this encounter Additional Health Concerns Infection Onset Date Last Indicated Resolved Time Rule Out COVID-19 06/22/2021 06/22/2021 06/23/2021 8:58 PM CDT Rule Out COVID-19 01/22/2022 01/22/2022 01/24/2022 1:05 PM MECHANICAL CAD DESIGNER Rule Out COVID-19 01/25/2022 01/25/2022 01/25/2022 5:21 AM MECHANICAL CAD DESIGNER Influenza 01/25/2022 01/25/2022 02/01/2022 11:4 1 PM MECHANICAL CAD DESIGNER Rule Out COVID-19 07/29/2022 07/29/2022 07/31/2022 11:17 AM CDT Rule Out COVID-19 03/23/2023 03/23/2023 03/23/2023 6:30 PM MECHANICAL CAD DESIGNER COVID-19 03/23/2023 03/23/2023 04/13/2023 11:4 0 PM MECHANICAL CAD DESIGNER Rule Out COVID-19 06/05/2023 06/05/2023 06/05/2023 5:53 PM CDT Rule Out COVID-19 11/06/2023 11/06/2023 11/06/2023 11:05 PM CDT Rule Out COVID-19 11/20/2023 11/20/2023 11/20/2023 6:43 PM CDT Rule Out COVID-19 12/27/2023 12/27/2023 12/29/2023 1:37 PM CDT Rule Out COVID-19 03/01/2024 03/01/2024 03/01/2024 1:11 PM MECHANICAL CAD DESIGNER Rule Out COVID-19 07/18/2024 07/18/2024 07/19/2024 5:52 PM CDT Rule Out COVID-19 10/17/2024 10/17/2024 10/17/2024 11:23 PM CDT Rule Out C-difficile 11/04/2024 11/04/2024 025 1:55 AM CDT Assessment Noted Time PHQ-9 Depression Total Score: 7 08/08/19 21 7:03 AM CDT documented as of this encounter Care Teams Director Of Residential Services Relationship Specialty [place] [address] [place] [address] PCP - General Family Practice 07/11/14 [place] [address] [place] [address] Assigned PCP 12/16/11 Kerry Bernal RN Personal Advocate & Liaison (PAL) 01/08/19 07/10/23 Ravi Barillas DPM [address] [facility] [address] [place] [address] Assigned Musculoskeletal Provider 03/23/20 10/30/21 Christy Campuzano PA-C [address] [place] [address] 5729[address] Referring Physician Family Medicine 04/22/20 Hans Cannon MD [address] [place] [address] Resident Pulmonary Disease 04/22/20 Mitra Kendall, STRAP STITCHER Lead Draftsperson Primary Care - CC 01/08/1901/12 Burt Jovel MD Internal Medicine 05/08/20 12/13/23 Estella Hassan, [facility] [address] [place] [address] Pharmacist Pharmacist 05/26/20 Reji Chavez MD [address] [facility] [address] [place] [address] Assigned Heart and Vascular Provider 05/18/20 10/30/21 Elaina Moreno MD [address] [place] [address] Assigned Surgical Provider 05/18/20 11/19/22 Elaina Moreno MD [address] [place] [address] Cardiovascular & Thoracic Surgery 08/06/20 Kelsi Hassan MD [address] [place] [address] Assigned Pulmonology Provider 06/28/21 02/05/22 John Webb MD [address] [address] Cardiovascular Disease 08/25/21 John Webb MD [address] 804025 Cardiovascular Disease 08/25/21 Estella Hassan, [facility] [address] [place] [address] Assigned MTM Pharmacist 09/05/21 Nav Hughes MD [address] [place] [address] Assigned Heart and Vascular Provider 10/31/21 09/03/23 Cassandra Mendoza MD ORTHOPAEDIC SURGERY [facility] [address] [address] Assigned Musculoskeletal Provider 10/31/21 08/13/22 Estella Hassan, [facility] [address] [place] [address] Assigned MTM Pharmacist 12/09/21 Mitra Kendall, [facility] Lead Draftsperson Primary Care - CC 01/26/2210/28 Lindsay Carey OD 3305 [facility] [place] [address] Ophthalmology 01/29/22 Ravi Brownlee MD [address] [place] [address] Assigned Pulmonology Provider 02/06/22 09/03/23 Arabella Fishman MA Financial Resource Worker 02/22/22 02/23/22 Richard Kam MD [address] [place] [address] Assigned Musculoskeletal Provider 08/14/22 Marisol Patel, [facility] 1440 [facility] [place] [phone] Pharmacist Pharmacist 11/22/22 01/09/23 [place] [address] [place], [address] [address] Assigned Neuroscience Provider 01/01/23 12/03/24 Rosemarie Mcdowell RN Industrial Yard Brake Coupler Diabetes Education 03/17/23 Ravi Brownlee MD [address] [address] Assigned Heart and Vascular Provider 09/04/23 01/03/24 Mitra Kendall, [facility] Lead Draftsperson Primary Care - CC 12/12/23 Lizet Mann PA-C [address] [place] [address] [place] [address] Assigned Cancer Care Provider 01/04/24 Ravi Brownlee MD [address] [address] Assigned Pulmonology Provider 01/04/24 Nav Hughes MD [address] [facility] [address] [place] [address] Assigned Heart and Vascular Provider 01/04/24 05/05/24 Manuel Ahn OD 6341 [facility] [place] [address] Independent Trader 01/05/24 Arabella Fishman MA Financial Resource Worker 01/06/24 03/19/24 Melvin Thalia, [facility] [address] [place], [place] [phone] Pharmacist Pharmacy 01/26/24 Gaurav Valenzuela APRN MOLD PULLER [address] [facility] 106 [place], [place] 6348[address] Assigned Sleep Provider 02/04/24 Manuel Ahn OD 6341 [place], [place] 105[address] Assigned Surgical Provider 02/04/24 06/02/24 Debbie Mann MD [address] [address] Cardiovascular Disease 02/24/24 Hakeem Chacko MBBS 2945 [place], [place] [address] Assigned Rheumatology Provider 04/05/24 Debbie Mann MD 1600 [facility] 200 [place], [place] [address] Assigned Heart and Vascular Provider 05/06/24 Timothy Tejada MD 6341 [facility] [phone] Ophthalmology 05/29/24 Timothy Tejada MD 6341 [place] [address] Assigned Surgical Provider 06/03/24 Elsie Roberts APRN MOLD PULLER 1600 [facility] [place] 101 [place] [address] Nurse Practitioner Pain Medicine 10/16/24 Cristy Morton MD 1440 [facility] [place] [address] Assigned Pediatric Specialist Provider 11/03/24 Georgie Anguiano PA-C [address] [address] Assigned Neuroscience Provider 12/04/24 documented as of this encounter
--- OUTSIDE RECORDS SUMMARY | 2024-12-06 00:24 | XMS_ITS | Encounter Summary ---
Author Organization [facility] Address [address] [place] [address] Care Team Providers Care Lead Laying And Gluing Machine Operator Name Role Phone Va Glez MD Primary Care Provider [phone] Va Glez MD Unavailable Kerry Bernal RN Unavailable [phone] Ravi Barillas DPM Unavailable [phone] Christy Campuzano PA-C Unavailable [phone] Hans Cannon MD Unavailable Mitra Kendall CULTURAL HISTORIAN Unavailable Burt Jovel MD Unavailable Estella Hassan [facility] Unavailable Reji Chavez MD Unavailable Josh Cordero MD, Madhuri Unavailable [phone] Josh Cordero MD, Madhuri Unavailable [phone] Kelsi Hassan MD Unavailable [phone] John Webb MD Unavailable John Webb MD Unavailable Estella Hassan [facility] Unavailable Nav Hughes MD Unavailable [phone] Cassandra Mendoza MD Unavailable Estella Hassan RPH Unavailable Mitra Kendall CULTURAL HISTORIAN Unavailable Aurelio [place] Kenzie OD Unavailable Ravi Brownlee MD Unavailable Kye Arabella MA Unavailable [phone] Richard Kam MD Unavailable Marisol Patel RPH Unavailable Gaby Vila DO Unavailable Rosemarie Mcdowell RN Unavailable Ravi Brownlee MD Unavailable Mitra Kendall CULTURAL HISTORIAN Unavailable Lizet MannC Unavailable Ravi Brownlee MD Unavailable Nav Hughes MD Unavailable [phone] Manuel Ahn OD Unavailable Kye Arabella MA Unavailable [phone] Thalia Charles RP Unavailable Gaurav Valenzuela APRN PROFESSIONAL SOCCER PLAYER Unavailable Manuel Ahn OD Unavailable Debbie Mann MD Unavailable Hakeem Chacko Unavailable Debbie Mann MD Unavailable Timothy Tejada MD Unavailable Timothy Tejada MD Unavailable Elsie Roberts APRN PROFESSIONAL SOCCER PLAYER Unavailable + Cristy Morton MD Unavailable Georgie Anguiano PA-C Unavailable [phone] Encounter Details Date Type Department Care Team (Late st Contact Info) Description 09/29/2020 MyC Medical Advice [address] [address] Estella Hassan, [facility] [address] [place] [address] Social History Tobacco Use Types Packs/Day Years [...] on file 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 Rehabilitation [address] [place] [address] Shanta Cooper, MOIZ 12/14/2024 11:20 AM CDT Office Visit [facility] [address] [place] [phone] Lizet Mann PA-C [address] [facility] [place] [address] 12/17/2024 2:10 PM CDT Office Visit [facility] Orthopedic [facility] [address] [facility] 4th [place] [address] Richard Kam MD 500 [place] [address] 12/19/2024 8:20 AM CDT Therapy Visit [address] [place] [address] Shanta Cooper, PT 12/24/2024 5:00 PM CDT Therapy Visit [address] [address] Pattie Casillas, PT 12/25/2024 10:20 AM CDT Therapy Visit [address] [address] Shanta Cooper, PT 01/03/2025 1:00 PM CDT Office Visit [address] [phone] Estella Hassan, [facility] [address] [place] [address] 01/03/2025 1:30 PM CDT Office Visit [address] [address] Va Glez MD [address] [place] [id number] 01/08/2025 1:15 PM CDT [facility] Visit [facility] [address] [facility] [address] [place] [phone] Hakeem Chacko MBBS [address] [place] [address] Scheduled Procedures Name Priority Associated Diagnoses Date/Ti me INJECTION, EPIDURAL, TRANSFO RAMINAL APPROACH Cervical radiculitis RELEASE, CARPAL TUNNEL, ENDOSCOPIC Right carpal tunnel syndrome documented as of this encounter Visit Diagnoses Not on filedocumented in this encounter Additional Health Concerns Infection Onset Date Last Indicated Resolved Time Rule Out COVID-19 06/22/2021 06/22/2021 06/23/2021 8:58 PM CDT Rule Out COVID-19 01/22/2022 01/22/2022 01/24/2022 1:05 PM AND RESCUE FIRE FIGHTER CRASH FIRE Rule Out COVID-19 01/25/2022 01/25/2022 01/25/2022 5:21 AM AND RESCUE FIRE FIGHTER CRASH FIRE Influenza 01/25/2022 01/25/2022 02/01/2022 11:4 1 PM AND RESCUE FIRE FIGHTER CRASH FIRE Rule Out COVID-19 07/29/2022 07/29/2022 07/31/2022 11:17 AM CDT Rule Out COVID-19 03/23/2023 03/23/2023 03/23/2023 6:30 PM AND RESCUE FIRE FIGHTER CRASH FIRE COVID-19 03/23/2023 03/23/2023 04/13/2023 11:4 0 PM AND RESCUE FIRE FIGHTER CRASH FIRE Rule Out COVID-19 06/05/2023 06/05/2023 06/05/2023 5:53 PM CDT Rule Out COVID-19 11/06/2023 11/06/2023 11/06/2023 11:05 PM CDT Rule Out COVID-19 11/20/2023 11/20/2023 11/20/2023 6:43 PM CDT Rule Out COVID-19 12/27/2023 12/27/2023 12/29/2023 1:37 PM CDT Rule Out COVID-19 03/01/2024 03/01/2024 03/01/2024 1:11 PM AND RESCUE FIRE FIGHTER CRASH FIRE Rule Out COVID-19 07/18/2024 07/18/2024 07/19/2024 5:52 PM CDT Rule Out COVID-19 10/17/2024 10/17/2024 10/17/2024 11:23 PM CDT Rule Out C-difficile 11/04/2024 11/04/2024 025 1:55 AM CDT Assessment Noted Time PHQ-9 Depression Total Score: 7 08/08/19 21 7:03 AM CDT documented as of this encounter Care Teams Lead Laying And Gluing Machine Operator Relationship Specialty [place] [address] [place] [address] PCP - General Family Practice 07/11/14 [place] [address] [place] [address] Assigned PCP 12/16/11 Kerry Bernal RN Personal Advocate & Liaison (PAL) 01/08/19 07/10/23 Ravi Barillas DPM [address] [facility] [address] [place] [address] Assigned Musculoskeletal Provider 03/23/20 10/30/21 Christy Campuzano PA-C [address] [place] [address] 381442 Referring Physician Family Medicine 04/22/20 Hans Cannon MD [address] [place] [address] Resident Pulmonary Disease 04/22/20 Mitra Kendall, CULTURAL HISTORIAN Lead Police Chief Deputy Primary Care - CC 01/08/1901/12 Burt Jovel MD Internal Medicine 05/08/20 12/13/23 Estella Hassan, [facility] [address] [place] [address] Pharmacist Pharmacist 05/26/20 Reji Chavez MD 6405 [facility] [address] [place] [phone] Assigned Heart and Vascular Provider 05/18/20 10/30/21 Elaina Moreno MD [address] [place] [address] Assigned Surgical Provider 05/18/20 11/19/22 Elaina Moreno MD [address] [place] [address] Cardiovascular & Thoracic Surgery 08/06/20 Kelsi Hassan MD [address] [place] [address] Assigned Pulmonology Provider 06/28/21 02/05/22 John Webb MD [address] [address] Cardiovascular Disease 08/25/21 John Webb MD [address] 884995 Cardiovascular Disease 08/25/21 Estella Hassan, [facility] [address] [place] [address] Assigned MTM Pharmacist 09/05/21 Nav Hughes MD [address] [place] [address] Assigned Heart and Vascular Provider 10/31/21 09/03/23 Cassandra Mendoza MD ORTHOPAEDIC SURGERY [facility] [address] [address] Assigned Musculoskeletal Provider 10/31/21 08/13/22 Estella Hassan, [facility] [address] [place] [address] Assigned MTM Pharmacist 12/09/21 Mitra Kendall, [facility] Lead Police Chief Deputy Primary Care - CC 01/26/2210/28 [place] Carey OD [address] [facility] [place] [address] Ophthalmology 01/29/22 Ravi Brownlee MD [address] [place] [address] Assigned Pulmonology Provider 02/06/22 09/03/23 Arabella Fishman MA Financial Resource Worker 02/22/22 02/23/22 Richard Kam MD [address] [place] [address] Assigned Musculoskeletal Provider 08/14/22 Marisol Patel, [facility] 1440 [facility] [place] [phone] Pharmacist Pharmacist 11/22/22 01/09/23 [place] [address] [place], [address] [address] Assigned Neuroscience Provider 01/01/23 12/03/24 Rosemarie Mcdowell RN Neon Sign Servicer Diabetes Education 03/17/23 Ravi Brownlee MD [address] 453085 Assigned Heart and Vascular Provider 09/04/23 01/03/24 Mitra Kendall, [facility] Lead Police Chief Deputy Primary Care - CC 12/12/23 Lizet Mann PA-C [address] [place] [address] [place] [address] Assigned Cancer Care Provider 01/04/24 Ravi Brownlee MD [address] [address] Assigned Pulmonology Provider 01/04/24 Nav Hughes MD 6405 [facility] [address] [place] [address] Assigned Heart and Vascular Provider 01/04/24 05/05/24 Manuel Ahn OD 6341 [place] [address] Mail Distributor 01/05/24 Arabella Fishman MA Financial Resource Worker 01/06/24 03/19/24 Melvin Thalia, [facility] [address] [place], [place] [phone] Pharmacist Pharmacy 01/26/24 Gaurav Valenzuela APRN PROFESSIONAL SOCCER PLAYER 606 [facility] 106 [place], [place] 309364 Assigned Sleep Provider 02/04/24 Manuel Ahn OD 6341 [place], [place] 212732 Assigned Surgical Provider 02/04/24 06/02/24 Debbie Mann MD [address] [address] Cardiovascular Disease 02/24/24 Hakeem Chacko MBBS 2945 [place], [place] [address] Assigned Rheumatology Provider 04/05/24 Debbie Mann MD 1600 [facility] 200 [place], [place] [address] Assigned Heart and Vascular Provider 05/06/24 Timothy Tejdaa MD 6341 [place] [phone] Ophthalmology 05/29/24 Timothy Tejada MD 6341 [place] [address] Assigned Surgical Provider 06/03/24 Elsie Roberts APRN PROFESSIONAL SOCCER PLAYER 1600 [facility] [address] [place] [address] Nurse Practitioner Pain Medicine 10/16/24 Cristy Morton MD 1440 [facility] [place] [address] Assigned Pediatric Specialist Provider 11/03/24 Georgie Anguiano PA-C [address] [address] Assigned Neuroscience Provider 12/04/24 documented as of this encounter
--- OUTSIDE RECORDS SUMMARY | 2024-12-06 00:25 | XMS_ITS | Encounter Summary ---
Author Organization [facility] Address [address] [place] [address] Care Team Providers Care Mechanical Design Technician Name Role Phone Va Glez MD Primary Care Provider [phone] Va Glez MD Unavailable Christy CampuzanoC Unavailable [phone] Hans Cannon MD Unavailable Estella Hassan [facility] Unavailable Josh Cordero MD, Madhuri Unavailable [phone] John Webb MD Unavailable John Webb MD Unavailable [phone] Estella Hassan [facility] Unavailable [place] Carey OD Unavailable Richard Kam MD Unavailable Gaby Vila DO Unavailable Rosemarie Mcdowell RN Unavailable [phone] Mitra Kendall CAD DESIGN ENGINEER Unavailable [phone] Lizet Mann PA-C Unavailable Ravi Brownlee MD Unavailable Manuel Ahn OD Unavailable Thalia Charles [facility] Unavailable [phone] Nicolas Gaurav Bell COMMODITY MANAGER CHRONOMETER TESTER Unavailable Debbie Mann MD Unavailable [phone] Hakeem Chacko MB Unavailable Debbie Mann MD Unavailable Timothy Tejada MD Unavailable [phone] Timothy Tejada MD Unavailable [phone] Elsie Roberts APRN CHRONOMETER TESTER Unavailable + Cristy Morton MD Unavailable [phone] Encounter Details Date Type Department Care Team (Late st Contact Info) Description 09/17/2024 Results Follow-Up [facility] Sports Medicine Clinic [facility] [address] [place] [address] Gaby Vila, [address] [place] , [facility] 300 [place] [address] Subj: Message about your results Social History [...] re latives? 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 Gender Identity Not on file Sexual Orientation Not on file Occupation Industry Job Start Date Job End Date Not on file Not on file Not on file Not on file documented as of this encounter Plan of Treatment Upcoming Encounters Date Type Department Care Team (Late st Contact Info) Description 12/11/2024 2:10 PM CDT Therapy Visit [place] [address] [place] [phone] Shanta Cooper, PT 12/14/2024 11:20 AM CDT Office Visit [facility] [address] [facility] [place] [address] Lizet Mann PA-C [address] [place] [address] 12/17/2024 2:10 PM CDT Office Visit [facility] Orthopedic [address] [place] [phone] Richard Kam MD [address] [place] [address] 12/19/2024 8:20 AM CDT Therapy Visit [place] [address] [place] [phone] Shanta Cooper, PT 12/24/2024 5:00 PM CDT Therapy Visit [place] [address] [place] [phone] Pattie Casillas, PT 12/25/2024 10:20 AM CDT Therapy Visit [address] [place] [address] Shanta Cooper, MOIZ 01/03/2025 1:00 PM CDT Office Visit [facility] [address] [place] [phone] Estella Hassan, [facility] [address] [place] [address] 01/03/2025 1:30 PM CDT Office Visit [facility] [address] [place] [phone] [place] [address] [place], [place] [phone] 01/08/2025 1:15 PM CDT Office Visit [facility] 2945 [facility] 200 [place] [address] Hakeem Chacko MBBS [address] [place] [address] Scheduled Procedures Name Priority Associated Diagnoses Date/Ti me INJECTION, EPIDURAL, TRANSFO RAMINAL APPROACH Cervical radiculitis RELEASE, CARPAL TUNNEL, ENDOSCOPIC Right carpal tunnel syndrome documented as of this encounter Goals Goal Patient Goal Type Associated Problems Recent Progress Patient-Stated? Author Health Maintenance Care Plan HP GENERAL PROBLEM 100%(10/29/19 10:17 AM CDT) No Mitra Kendall, CAD DESIGN ENGINEER Note: Update on 05/25/22 Barriers: Currently without [...] for health insurance by looking in to [employer] and talking with a FRW. Completed 3. I will look for a new job and will access resources that the [employer] offers. . Sarted new job 4. Continue [...] by household income. 2. I will contact [facility] to ask about medicare plans and if there are saving programs I qualify for by by calling [phone]. 3. I will see if I am eligible for unemployment after losing my job. I will call [phone] to ask for assistance with unemployment application. 4. I will apply for jobs. I will work with [employer] in finding a job ([employer]ower[employer].) 5. I will access [employer] and ask about financial resources (such as [...] I will continue working with therapist at [facility]. 2. I will establish with Psychiatry. Planning to schedule with Ronnie. 3. I will meet with community correction worker Manjula Gresham. 4. I will look in to attending an IOP program. I will discuss with my [facility] therapist and number provided for [facility] Behavioral Access - [phone] to schedule assessment fr IOP program. 5. I will go to [facility] if I have concerning mental health symptoms. 6. I will access [facility] Crisis if needed by calling [phone]. 7. I will consider calling [facility] Adult Mental health intake at [phone]. documented as of this encounter Visit Diagnoses [...] accurate information and submit it to the [facility]. 3. I will update [facility] [...] as of this encounter Care Teams Mechanical Design Technician Relationship Specialty [place] [address] [place], [place] [phone] PCP - General Family Practice 07/11/14 [place] [address] [place] [address] Assigned PCP 12/16/11 Christy Campuzano PA-C [address] [place] [address] 906542 Referring Physician Family Medicine 04/22/20 Hans Cannon MD [address] [place] [address] Resident Pulmonary Disease 04/22/20 Estella Hassan, [facility] [address] [place] [address] Pharmacist Pharmacist 05/26/20 Elaina Moreno MD 909 [place] [address] Cardiovascular & Thoracic Surgery 08/06/20 John Webb MD [address] [place] [address] Cardiovascular Disease 08/25/21 John Webb MD [address] [place] [address] Cardiovascular Disease 08/25/21 Estella Hassan, [facility] [address] [place] [address] Assigned MTM Pharmacist 12/09/21 [place] Carey OD [address] [facility] [address] Ophthalmology 01/29/22 Richard Kam MD [address] [place] [address]25 Assigned Musculoskeletal Provider 08/14/22 [place] [address] [address]84[address] Assigned Neuroscience Provider 01/01/23 12/03/24 Rosemarie Mcdowell, RN Skein Winding Operator Diabetes Education 03/17/23 Mitra Kendall, CAD DESIGN ENGINEER Lead Model Photographers' Primary Care - CC 12/12/23 Lizet Mann PA-C [address] [address] [place] [address] Assigned Cancer Care Provider 01/04/24 Ravi Brownlee MD 420 [facility] 276 [place] [address] Assigned Pulmonology Provider 01/04/24 Manuel Ahn OD 6341 [place] [address] Beef Trimmer 01/05/24 Thalia Charles [facility] [address] [place], [place] [phone] Pharmacist Pharmacy 01/26/24 Gaurav Valenzuela APRN CHRONOMETER TESTER 606 [facility] 106 [place] [address] Assigned Sleep Provider 02/04/24 Debbie Mann MD 1600 [facility] 200 [place], [place] [phone] Cardiovascular Disease 02/24/24 Hakeem Chacko MBBS 29[address] [place] [address] Assigned Rheumatology Provider 04/05/24 Debbie Mann MD 1600 [facility] 200 [place], [place] [phone] Assigned Heart and Vascular Provider 05/06/24 Timothy Tejada MD 6341 [place] [phone] Ophthalmology 05/29/24 Timothy Tejada MD 6341 [facility] [place] [address] Assigned Surgical Provider 06/03/24 Elsie Roberts APRN CHRONOMETER TESTER [address] [place] [phone] Nurse Practitioner Pain Medicine 10/16/24 Cristy Morton MD [address] [place] [address] [place]O [id number] Assigned Pediatric Specialist Provider 11/03/24 documented as of this encounter
--- OUTSIDE RECORDS SUMMARY | 2024-12-06 00:25 | XMS_ITS | Encounter Summary ---
Author Organization [place] Address [address] [place] [address] 14[address] Care Team Providers Care Asset Card Clerk Name Role Phone Va Glez MD Primary Care Provider [phone] Va Glez MD Unavailable Christy Campuzano PAUniqueC Unavailable [phone] Hans Cannon MD Unavailable Estella Hassan [facility] Unavailable [phone] Josh Cordero MD, Madhuri Unavailable [phone] John Webb MD Unavailable [phone] John Webb MD Unavailable [phone] Estella Hassan [facility] Unavailable [phone] Lindsay Carey OD Unavailable Richard Kam MD Unavailable Gaby Vila DO Unavailable Rosemarie Mcdowell RN Unavailable Mitra Kendall MACHINE TRIMMER Unavailable [phone] Lizet Mann PA-C Unavailable Ravi Brownlee MD Unavailable Nav Hughes MD Unavailable [phone] Manuel Ahn OD Unavailable [phone] rAabella Fishman MA Unavailable [phone] Thalia Charles [facility] Unavailable [phone] Gaurav Valenzuela PRIVATE BRANCH EXCHANGE OPERATOR DATA COLLECTOR Unavailable [phone] Manuel Ahn Kunal OD Unavailable Debbie Mann MD Unavailable +[phone] Hakeem ChackoBS Unavailable Debbie Mann MD Unavailable [phone] Timothy Tejada MD Unavailable [phone] Timothy Tejada MD Unavailable +[phone] Elsie Roberts PRIVATE BRANCH EXCHANGE OPERATOR DATA COLLECTOR Unavailable + Cristy Morton MD Unavailable [phone] Georgie Anguiano PA-C Unavailable [phone] Reason for Visit * Reason Comments Medication Refill Encounter Details Date Type Department Care Team (Late st Contact Info) Description 01/19/[address] [place] [phone] Estella Morales MD [address] [place], [place] 112602 Medication Refill Social History Tobacco Use Types [...] Answer Date Recorded PHQ-2 Score 2 12/23/2023 [facility] Health - Occupational Stress Questionnaire Answer [...] on file 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 Gender Identity Not on file Sexual Orientation Not on file Occupation Industry Job Start Date Job End Date Not on file Not on file Not on file Not on file documented as of this encounter Plan of Treatment Upcoming Encounters Date Type Department Care Team (Late st Contact Info) Description 12/11/2024 2:10 PM CDT Therapy Visit [address] [phone] Shanta Cooper, PT 12/14/2024 11:20 AM CDT Office Visit [address] [phone] Lizet Mann PA-C [address] [place] [address] 12/17/2024 2:10 PM CDT Office Visit [facility] [address] [place] [address] 4th [place] [phone] Richard Kam MD [address] [place] [address] 12/19/2024 8:20 AM CDT Therapy Visit [address] [phone] Shanta Cooper, PT 12/24/2024 5:00 PM CDT Therapy Visit [address] 290 [place] [phone] Pattie Casillas, PT 12/25/2024 10:20 AM CDT Therapy Visit [address] 290 [place] [phone] Shanta Cooper, PT 01/03/2025 1:00 PM CDT Office Visit [address] [phone] Estella Hassan, [facility] [address] [place] [address] 01/03/2025 1:30 PM CDT Office Visit [address] [phone] [place] [address] [place] [address] 01/08/2025 1:15 PM CDT Office Visit [facility] 2945 [facility] 200 [place] [phone] Hakeem Chacko MBBS [address] [place] [address] Scheduled Procedures Name Priority Associated Diagnoses Date/Ti me INJECTION, EPIDURAL, TRANSFO RAMINAL APPROACH Cervical radiculitis RELEASE, CARPAL TUNNEL, ENDOSCOPIC Right carpal tunnel syndrome documented as of this encounter Goals Goal Patient Goal Type Associated Problems Recent Progress Patient-Stated? Author Health Maintenance Care Plan HP GENERAL PROBLEM 100%(10/29/19 10:17 AM CDT) No Mitra Kendall, MACHINE TRIMMER Note: Update on 05/25/22 Barriers: Currently [...] for health insurance by looking in to [employer] and talking with a FRW. Completed 3. I will look for a new job and will access resources that the [employer] offers. . Sarted new job 4. Continue [...] work with FRW in applying for [facility], [facility] assistance and to see if I qualify for Medicaid. I need to ask spouse what her income is as it goes by household income. 2. I will contact [facility] to ask about medicare plans and if there are saving programs I qualify for by by calling [phone]. 3. I will see if I am eligible for unemployment after losing my job. I will call [phone] to ask for assistance with unemployment application. 4. I will apply for jobs. I will work with [employer] in finding a job ([employer].) 5. I will access [employer] and ask about financial resources (such as [...] accurate information and submit it to the [facility]. 3. I will update CCC Team at outreach. Health Maintenance Due or Overdue 12/16/2023 Patient expresses financial resource strain 12/13 Infection Onset Date Last Indicated Resolved Time Rule Out COVID-19 03/01/2024 03/01/2024 03/01/2024 1:11 PM COILED TUBING OPERATOR Rule Out COVID-19 07/18/2024 07/18/2024 07/19/2024 5:52 PM CDT Rule Out COVID-19 10/17/2024 10/17/2024 10/17/2024 11:23 PM CDT Rule Out C-difficile 11/04/2024 11/04/2024 025 1:55 AM CDT Assessment Noted Time PHQ-9 Depression Total Score: 9 12/23/19 24 12:36 PM CDT documented as of this encounter Care Teams Asset Card Clerk Relationship Specialty [place] [address] [place] [address] PCP - General Family Practice 07/11/14 [place] [address] [place] [address] Assigned PCP 12/16/11 Christy Campuzano PA-C [address] [place] [address] 235802 Referring Physician Family Medicine 04/22/20 Hans Cannon MD [address] [place] [address] Resident Pulmonary Disease 04/22/20 [facility] [address] [place], [place] 941346 Pharmacist Pharmacist 05/26/20 Elaina Moreno MD 909 [place] [address] Cardiovascular & Thoracic Surgery 08/06/20 John Webb MD [address] [id number] Cardiovascular Disease 08/25/21 John Webb MD [address] 439065 Cardiovascular Disease 08/25/21 Estella Hassan, [facility] [address] [place] [address] Assigned MTM Pharmacist 12/09/21 Lindsay Carey OD [address] [place] [address] Ophthalmology 01/29/22 Richard Kam MD 500 [place], [place] 865845 Assigned Musculoskeletal Provider 08/14/22 [place] [address] 749147 Assigned Neuroscience Provider 01/01/23 12/03/24 Rosemarie Mcdowell, RN Service Desk Manager Diabetes Education 03/17/23 Mitra Kendall, MACHINE TRIMMER Lead Administrative Executive Primary Care - CC 12/12/23 Lizet Mann PA-C [address] [place] [address] Assigned Cancer Care Provider 01/04/24 Ravi Brownlee MD [address] [place] [address] 813715 Assigned Pulmonology Provider 01/04/24 Nav Hughes MD [address] [facility] [address] [place] 562855 Assigned Heart and Vascular Provider 01/04/24 05/05/24 Manuel Ahn, OD [address] [place] [address] Treasury Associate 01/05/24 Arabella Fishman MA Financial Resource Worker 01/06/24 03/19/24 Thalia Charles [facility] [address] [place], [place] [phone] Pharmacist Pharmacy 01/26/24 Gaurav Valenzuela APRN DATA COLLECTOR 606 [facility] 106 [place], [place] 508124 Assigned Sleep Provider 02/04/24 Manuel Ahn, OD [address] [place] [address] Assigned Surgical Provider 02/04/24 06/02/24 Debbie Mann MD 1600 [facility] 200 [place] [address] Cardiovascular Disease 02/24/24 Hakeem Chacko MBBS 2945 [place] [address] Assigned Rheumatology Provider 04/05/24 Debbie Mann MD 1600 [facility] 200 [place] [address] Assigned Heart and Vascular Provider 05/06/24 Timothy Tejada MD 6341 [facility] [place] [address] Ophthalmology 05/29/24 Timothy Tejada MD 6[address] [facility] [place] [address] Assigned Surgical Provider 06/03/24 Elsie Roberts APRN DATA COLLECTOR 1600 [facility] 101 [place] [address] Nurse Practitioner Pain Medicine 10/16/24 Cristy Morton MD 1440 [facility] [place] [address] Assigned Pediatric Specialist Provider 11/03/24 Georgie Anguiano PA-C [address] [address] Assigned Neuroscience Provider 12/04/24 documented as of this encounter
--- OUTSIDE RECORDS SUMMARY | 2024-12-06 00:25 | XMS_ITS | Encounter Summary ---
Author Organization [place] Address [address] [place] [address] Care Team Providers Care Theater Technician Name Role Phone Va Glez MD Primary Care Provider Va Glez MD Unavailable Christy CampuzanoC Unavailable [phone] Hans Cannon MD Unavailable Estella Hassan [facility] Unavailable [phone] Josh Cordero MD, Madhuri Unavailable [phone] John Webb MD Unavailable [phone] John Webb MD Unavailable [phone] Estella Hassan [facility] Unavailable [phone] Lindsay Carey OD Unavailable Richard Kam MD Unavailable Gaby Vila DO Unavailable [phone] Rosemarie Mcdowell RN Unavailable Mitra Kendall SHANK SKINNER Unavailable [phone] Lizet Mann PA-C Unavailable Ravi Brownlee MD Unavailable Manuel Ahn OD Unavailable Thalia Charles [facility] Unavailable [phone] Gaurav Valenzuela YOKER MACHINE OPERATOR JEWELRY CASTING MODEL MAKER Unavailable [phone] Debbie Mann MD Unavailable [phone] Hakeem Chacko MB Unavailable Debbie Mann MD Unavailable [phone] Timothy Tejada MD Unavailable [phone] Timothy Tejada MD Unavailable [phone] Elsie Roberts YOKER MACHINE OPERATOR JEWELRY CASTING MODEL MAKER Unavailable + Cristy Morton MD Unavailable [phone] Georgie Anguiano PA-C Unavailable [phone] Encounter Details Date Type Department Care Team (Late st Contact Info) Description 09/21/2024 Telephone [facility] [address] [place] [address] Hans Caldwell PA-C [address] [place] [address] Social History Tobacco Use Types Packs/Day Years Used Date Smoking Tobacco: Former Cigarettes Q uit: 12/03/1983 Passive Smoke Exposure: Past Smokeless Tobacco: Never Alcohol Use Standard Drinks/Week Comments Not Currently 0 (1 standard drink = 0.6 oz pur e alcohol) occ Social Connection and Isolation Panel [NHANES] A nswer Date Recorded Frequency of Communication with Friends and Fami ly Not on file 05/22/2024 How often do you get together with friends or re latives? Once a week 05/22/2024 Attends Restorationism Services Not on file 05/22 Active Member of Clubs or Organizations Not on f ile 05/22/2024 Attends Club or Organization Meetings Not on heena e 05/22/2024 Marital Status Not on file 05/22/2024 AUDIT-C Answer Date Recorded Q1: How often [...] PHQ-2 Answer Date Recorded PHQ-2 Score 2 09/04/2024 [facility] - Occupational Stress Questionnaire Answer Date Recorded Do you feel stress - tense, restless, nervous, or anxious, or unable to sleep at night because your mind is troubled all the time - these days? Very much 05/22/2024 Exercise Vital Sign Answer Date Recorde d On average, how many days pe r week do you engage in moderate to strenuous exercise (like a brisk walk)? 2 days Minutes of Exercise per Session Not on file 05/22/2024 Adolescent Education Answer Date Record ed Getting School Help Needed Not on file 12/07 Food Insecurity Answer Date Recorded Within the past 12 months, d id you worry that your food would run out before you got money to buy more? Yes 05/22/2024 Within the past 12 months, d id the food you bought just not last and you didn t have money to get more? Yes 05/22/2024 Housing Stability Answer Date Recorded Do you have housing? (Housin g is defined as stable permanent housing and does not include staying outside in a car, in a tent, in an abandoned building, in an overnight skilled nursing, 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.) Patient declined 05/22/2024 Are you worried about losing your housing? Yes 05/22/2024 Financial Resource Strain Answer Date R ecorded Within the past 12 months, h ave you or your family members you live with been unable to get utilities (heat, electricity) when it was really needed? Yes 05/22/2024 Transportation Needs Answer Date Record ed Within the past 12 months, h as lack of transportation kept you from medical appointments, getting your medicines, non-medical meetings or appointments, work, or from getting things that you need? 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 Gender Identity Not on file Sexual Orientation Not on file Occupation Industry Job Start Date Job End Date Not on file Not on file Not on file Not on file documented as of this encounter Miscellaneous Notes * Telephone Encounter - Lauri, June - 09/21/2024 10:22 AM CDT Other: patient is wanting to talk the individual that spoke to him over the phone, says he was ableto go into walk in [facility] or would you prefer to receive a phone call?: Patient would prefer a phone call Okay to leave a detailed message?: Yes at Cell number on file: Telephone Information: documented in this encounter Plan of Treatment Upcoming Encounters Date Type Department Care Team (Late st Contact Info) Description 12/11/2024 2:10 PM CDT Therapy Visit [facility] [address] [address] Shanta Cooper, MOIZ 12/14/2024 11:20 AM CDT Office Visit [facility] [address] [place] [phone] Lizet Mann PA-C [address] [place] [address] 12/17/2024 2:10 PM CDT Office Visit [facility] [place] 909 [facility] 4th [place] [phone] Richard Kam MD [address] [place] [address] 12/19/2024 8:20 AM CDT Therapy Visit [address] [place] [phone] Shanta Cooper, PT 12/24/2024 5:00 PM CDT Therapy Visit [address] [place] [phone] Pattie Casillas, PT 12/25/2024 10:20 AM CDT Therapy Visit [place] [address] [address] [place] [phone] Shanta Cooper, PT 01/03/2025 1:00 PM CDT Office Visit [address] [phone] Estella Hassan, [facility] [address] [place] [address] 01/03/2025 1:30 PM CDT Office Visit [address] [phone] [place] [address] [place], [place] [address] 01/08/2025 1:15 PM CDT Office Visit [facility] 2945 [facility] 200 [place] [phone] Hakeem Chacko MBBS [address]45 [place] [address] Scheduled Procedures Name Priority Associated Diagnoses Date/Ti [...] for health insurance by looking in to [employer] and talking with a FRW. Completed 3. I will look for a new job and will access resources that the [employer] offers. . Sarted new job 4. [...] by household income. 2. I will contact [employer] [facility] to ask about medicare plans and if there are saving programs I qualify for by by calling [phone]. 3. I will see if I am eligible for unemployment after losing my job. I will call [phone] to ask for assistance with unemployment application. 4. I will apply for jobs. I will work with [employer] [facility] in finding a job ([employer].) 5. I will access [employer] and ask about financial resources (such as getting gas card.) Improve management of mental health symptoms and establish with mental health/psychosocia l supports Care Plan Mental Health Symptoms Need Improvement 70%( 5 10:47 AM CDT) Mitra Bojra LSW Note: Updated on 08/30/24 Barriers: I struggle with having anxiety.My children won;t talk with me due to my mental health concerns Strengths: I am accessing support that is available to me. Patient expressed understanding of goal: Yes Action steps to achieve this goal: 1. I will continue working with therapist at [facility]. 2. I will establish with Psychiatry. Planning to schedule with Ronnie. 3. I will meet with community track worker Manjula Gresham. 4. I will look in to attending an IOP program. I will discuss with my [facility] therapist and number provided for [facility] Behavioral Access - [phone] to schedule assessment fr IOP program. 5. I will go to [facility] if I have concerning mental health symptoms. 6. I will access [facility] if needed by calling [phone]. 7. I will consider calling [facility] Adult Mental health intake at [phone]. documented as of this encounter Visit Diagnoses [...] accurate information and submit it to the [facility]. 3. I will update CCC Team at outreach. Health Maintenance Due or Overdue 12/16/2023 Patient expresses financial resource strain 12/13 Mental Health Symptoms Need Improvement 04/05/19 25 Infection Onset Date Last Indicated Resolved Time Rule Out COVID-19 10/17/2024 10/17/2024 10/17/2024 11:23 PM CDT Rule Out C-difficile 11/04/2024 11/04/2024 025 1:55 AM CDT Assessment Noted Time PHQ-9 Depression Total Score: 9 09/05/19 25 1:35 PM CDT documented as of this encounter Care Teams Theater Technician Relationship Specialty [place] [address] [place] [address] PCP - General Family Practice 07/11/14 [place] [address] [place] [address] Assigned PCP 12/16/11 Christy Campuzano PA-C [address] [place] [address] Referring Physician Family Medicine 04/22/20 Hans Cannon MD [address] [place], [place] 319742 Resident Pulmonary Disease 04/22/20 Estella Hassan, [facility] [address] [place] [address] Pharmacist Pharmacist 05/26/20 Elaina Moreno MD [address] [place] [address] 509135 Cardiovascular & Thoracic Surgery 08/06/20 John Webb MD [address] [place] 702035 Cardiovascular Disease 08/25/21 John Webb MD [address] [place] DC 851305 Cardiovascular Disease 08/25/21 Estella Hassan, [facility] [address] [place] [address] Assigned MTM Pharmacist 12/09/21 Lindsay Carey OD [address] [facility] [place] [address] Ophthalmology 01/29/22 Richard Kam MD [address] [place] [address] 587825 Assigned Musculoskeletal Provider 08/14/22 [place] [address] [address] Assigned Neuroscience Provider 01/01/23 12/03/24 Rosemarie Mcdowell, RN Sample Dye Mixer Diabetes Education 03/17/23 Mitra Kendall, SHANK SKINNER Lead Inventory Accountant Primary Care - CC 12/12/23 Lizet Mann PA-C [address] [place] [address] Assigned Cancer Care Provider 01/04/24 Ravi Brownlee MD 420 [facility] 276 [place], [place] 318[address] Assigned Pulmonology Provider 01/04/24 Manuel Ahn OD 6341 [place] [address] Manufacturing Engineer Supervisor 01/05/24 Thalia Charles, [facility] [address] [place], [place] [phone] Pharmacist Pharmacy 01/26/24 Gaurav Valenzuela, YOKER MACHINE OPERATOR JEWELRY CASTING MODEL MAKER [address] [facility] 106 [place], [place] [address] Assigned Sleep Provider 02/04/24 Debbie Mann MD 1600 [facility] 200 [place], [place] [phone] Cardiovascular Disease 02/24/24 Hakeem Chacko MBBS 2945 [place] [address] Assigned Rheumatology Provider 04/05/24 Debbie Mann MD 1600 [facility] 200 [place] [address] Assigned Heart and Vascular Provider 05/06/24 Timothy Tejada MD 6341 [place] [address] MD Ophthalmology 05/29/24 Timothy Tejada MD 6341 [place] [address] Assigned Surgical Provider 06/03/24 Elsie Roberts APRN JEWELRY CASTING MODEL MAKER 1600 [facility] 101 [place] [address] Nurse Practitioner Pain Medicine 10/16/24 Cristy Morton MD [address] [place] [address] [place] [address] Assigned Pediatric Specialist Provider 11/03/24 Georgie Anguiano PA-C [address] [place] [address] Assigned Neuroscience Provider 12/04/24 documented as of this encounter
--- OUTSIDE RECORDS SUMMARY | 2024-12-06 00:25 | XMS_ITS ---
Author Organization [place] Address [address] [place] [address] Care Team Providers Care Physiologist Name Role Phone Va Glez MD Primary Care Provider Va Glez MD Unavailable Christy Campuzano PA-C Unavailable [phone] Hans Cannon MD Unavailable Estella Hassan [facility] Unavailable [phone] Josh Cordero MD, Madhuri Unavailable [phone] John Webb MD Unavailable John Webb MD Unavailable Estella Hassan [facility] Unavailable Lindsay Carey OD Unavailable Richard Kam MD Unavailable Rosemarie Mcdowell RN Unavailable Mitra Kendall SUPERVISOR NURSE Unavailable Lizet Mann PA-C Unavailable Ravi Brownlee MD Unavailable [phone] Manuel Ahn OD Unavailable Thalia Charles [facility] Unavailable [phone] Gaurav Valenzuela ENGINEER SECOND ASSISTANT CASTING REPAIRER Unavailable [phone] Debbie Mann MD Unavailable [phone] Hakeem Chacko Unavailable Debbie Mann MD Unavailable [phone] Timothy Tejada MD Unavailable [phone] Timothy Tejada MD Unavailable [phone] Elsie Roberts ENGINEER SECOND ASSISTANT CASTING REPAIRER Unavailable + Cristy Morton MD Unavailable [phone] Georgie Anguiano PA-C Unavailable [phone] Financial Resource Worker Status:Closed (Closed) Start date:09/28/2024 Enrollment date:11/05/2024 End date:11/28/2024 Close reason:Resources given, no ongoing needs Overview Per patient he still wants to apply for [facility]. Frw provided the patient with the resources to apply by sending a application in the mail. Pt has no ongoing needs at this time. Frw will close the referral. Continued Care and Services Coordination
--- OUTSIDE RECORDS SUMMARY | 2024-12-06 00:25 | XMS_ITS | Encounter Summary ---
Author Organization [facility] Address [address] [place] [address] Care Team Providers Care Waiter/Waitress Cabin Class Name Role Phone Va Glez MD Primary Care Provider Va Glez MD Unavailable Kerry Bernal RN Unavailable [phone] Ravi Barillas DPM Unavailable [phone] Christy CampuzanoC Unavailable [phone] Hans Cannon MD Unavailable [phone] Mitra Kendall ROLLER MILL TENDER Unavailable [phone] Faith Templeton CHW Unavailable [phone] Burt Jovel MD Unavailable [phone] Burt Jovel MD Unavailable [phone] Estella Hassan [facility] Unavailable [phone] Sheila Matias Unavailable Unavailable Reji Chavez MD Unavailable [phone] Josh Cordero MD, Madhuri Unavailable [phone] Josh Cordero MD, Madhuri Unavailable [phone] Kelsi Hassan MD Unavailable [phone] John Webb MD Unavailable [phone] John Webb MD Unavailable Estella Hassan [facility] Unavailable Nav Hughes MD Unavailable [phone] Cassandra Mendoza MD Unavailable MoEstella H Unavailable Mitra Kendall ROLLER MILL TENDER Unavailable Lindsay Carey OD Unavailable Ravi Brownlee MD Unavailable Arabella Fishman MA Unavailable [phone] Richard Kam MD Unavailable Marisol Patel RPH Unavailable Gaby Vila DO Unavailable Rosemarie Mcdowell RN Unavailable Ravi Brownlee MD Unavailable Mitra Kendall ROLLER MILL TENDER Unavailable Lizet Mann PA-C Unavailable Ravi Brownlee MD Unavailable Nav Hughes MD Unavailable [phone] Manuel Ahn OD Unavailable Arabella Fishman MA Unavailable [phone] Thalia Charles [facility] Unavailable Gaurav Valenzuela APRN WIRE LATHER Unavailable Manuel Ahn OD Unavailable Debbie Mann MD Unavailable Hakeem Chacko Unavailable Debbie Mann MD Unavailable Timothy Tejada MD Unavailable Timothy Tejada MD Unavailable [phone] Elsie Roberts APRN, CNP Unavailable + Cristy Morton MD Unavailable Georgie Anguiano PA-C Unavailable [phone] Reason for Visit * Reason Comments Medication Refill Encounter Details Date Type Department Care Team (Late st Contact Info) Description 10/18/2019 Refill [facility] [address] [place] [address] [place] [id number] [place] [address] Medication Refill Social History Tobacco Use Types [...] and Family Not on file 05/31/2019 Attends [employer] Services Not on file 05/30 Active Member [...] Date Recorded PHQ-2 Score 0 09/13/2019 [facility] Dr[place] of Occupat ional Health - Occupational Stress [...] on file Legal Sex Male 3:29 AM PORCELAIN ENAMELER Gender Identity Not on file Sexual Orientation [...] Description 12/11/2024 2:10 PM CDT Therapy Visit [address] [phone] Shanta Cooper, PT 12/14/2024 11:20 AM CDT Office Visit [facility] [address] [place] [address] Lizet Mann PA-C [address] [facility] [place] [address] 12/17/2024 2:10 PM CDT Office [facility] [address] [place] [address] 4th [place] [phone] Richard Kam MD [address] [place] [address] 12/19/2024 8:20 AM CDT Therapy Visit [address] [phone] Shanta Cooper, PT 12/24/2024 5:00 PM CDT Therapy Visit [address] [phone] Pattie Casillas, PT 12/25/2024 10:20 AM CDT Therapy Visit [address] [phone] Shanta Cooper, PT 01/03/2025 1:00 PM CDT Office Visit [facility] [address] [place] [phone] Estella Hassan, [facility] 3033 [place] [address] 01/03/2025 1:30 PM CDT Office Visit [facility] [address] [place] [phone] [place] [address] [place] [address] 01/08/2025 1:15 PM CDT Office Visit [facility] 2945 [facility] 200 [place] [address] Hakeem Chacko MBBS 2945 [place] [address] Scheduled Procedures Name Priority Associated Diagnoses Date/Ti me INJECTION, EPIDURAL, TRANSFO RAMINAL APPROACH Cervical radiculitis RELEASE, CARPAL TUNNEL, ENDOSCOPIC Right carpal tunnel syndrome documented as of this encounter Visit Diagnoses Diagnosis Moderate persistent asthma without complication Unspecified asthma documented in this encounter Additional Health Concerns Infection Onset Date Last Indicated Resolved Time Rule Out COVID-19 04/07/2020 04/07/2020 04/08/2020 7:51 PM PORCELAIN ENAMELER Rule Out COVID-19 04/21/2020 04/21/2020 04/22/2020 5:44 PM PORCELAIN ENAMELER Rule Out COVID-19 06/22/2021 06/22/2021 06/23/2021 8:58 PM CDT Rule Out COVID-19 01/22/2022 01/22/2022 01/24/2022 1:05 PM PORCELAIN ENAMELER Rule Out COVID-19 01/25/2022 01/25/2022 01/25/2022 5:21 AM PORCELAIN ENAMELER Influenza 01/25/2022 01/25/2022 02/01/2022 11:4 1 PM PORCELAIN ENAMELER Rule Out COVID-19 07/29/2022 07/29/2022 07/31/2022 11:17 AM CDT Rule Out COVID-19 03/23/2023 03/23/2023 03/23/2023 6:30 PM PORCELAIN ENAMELER COVID-19 03/23/2023 03/23/2023 04/13/2023 11:4 0 PM PORCELAIN ENAMELER Rule Out COVID-19 06/05/2023 06/05/2023 06/05/2023 5:53 PM CDT Rule Out COVID-19 11/06/2023 11/06/2023 11/06/2023 11:05 PM CDT Rule Out COVID-19 11/20/2023 11/20/2023 11/20/2023 6:43 PM CDT Rule Out COVID-19 12/27/2023 12/27/2023 12/29/2023 1:37 PM CDT Rule Out COVID-19 03/01/2024 03/01/2024 03/01/2024 1:11 PM PORCELAIN ENAMELER Rule Out COVID-19 07/18/2024 07/18/2024 07/19/2024 5:52 PM CDT Rule Out COVID-19 10/17/2024 10/17/2024 10/17/2024 11:23 PM CDT Rule Out C-difficile 11/04/2024 11/04/2024 025 1:55 AM CDT Assessment Noted Time PHQ-9 Depression Total Score: 4 09/14/19 20 7:06 AM CDT documented as of this encounter Care Teams Waiter/Waitress Cabin Class Relationship Specialty [place] [address] [place] [address] PCP - General Family Practice 07/11/14 [place] [address] [place] [address] Assigned PCP 12/16/11 Kerry Bernal RN Personal Advocate & Liaison (PAL) 01/08/19 07/10/23 Ravi Barillas DPM [address] [facility] 300 [place] [address] Assigned Musculoskeletal Provider 03/23/20 10/30/21 Christy Campuzano PA-C [address] [place] [address] Referring Physician Family Medicine 04/22/20 Hans Cannon MD [address] [place] [address] Resident Pulmonary Disease 04/22/20 Mitra Kendall, ROLLER MILL TENDER Lead Solar Installation Helper Primary Care - CC 01/08/1901/12 Faith Templeton, [facility] Community Health Worker 04/30/2006/05 Burt Jovel MD Internal Medicine 05/08/20 12/13/23 Burt Jovel MD [address] [place] [address] Assigned Heart and Vascular Provider 05/11/20 05/17/20 Estella Hassan, [facility] [address] [place], [place] [address] Pharmacist Pharmacist 05/26/20 Sheila Matias Financial Resource Worker Primary Care - CC 06/02/20 06/02/20 Reji Chavez MD [address] [place] [phone] Assigned Heart and Vascular Provider 05/18/20 10/30/21 Elaina Moreno MD [address] [place] [address] Assigned Surgical Provider 05/18/20 11/19/22 Elaina Moreno MD 909 [place] [address] Cardiovascular & Thoracic Surgery 08/06/20 Kelsi Hassan MD [address] [place] [address] Assigned Pulmonology Provider 06/28/21 02/05/22 John Webb MD 6405 [facility] [place] [address] Cardiovascular Disease 08/25/21 John Webb MD 6405 [facility] [place] [address] Cardiovascular Disease 08/25/21 Estella Hassan, [facility] 3033 [place] [address] Assigned MTM Pharmacist 09/05/21 Nav Hughes MD 6405 [facility] [address] [place] [address] Assigned Heart and Vascular Provider 10/31/21 09/03/23 Cassandra Mendoza MD ORTHOPAEDIC SURGERY [address] [address] Assigned Musculoskeletal Provider 10/31/21 08/13/22 [facility] [address] [place] [address] Assigned MTM Pharmacist 12/09/21 Mitra Kendall, ROLLER MILL TENDER Lead Solar Installation Helper Primary Care - CC 01/26/2210/28 Lindsay Carey OD 3305 [facility] [place]ANKAR [place]O [address] Ophthalmology 01/29/22 Ravi Brownlee MD [address] [place] [address] 770645 Assigned Pulmonology Provider 02/06/22 09/03/23 Arabella Fishman MA Financial Resource Worker 02/22/22 02/23/22 Richard Kam MD [address] [place] [address] Assigned Musculoskeletal Provider 08/14/22 [facility] [address] [facility] [place] [address] Pharmacist Pharmacist 11/22/22 01/09/23 [place] [address] BC PENA, [address] [address] Assigned Neuroscience Provider 01/01/23 12/03/24 Rosemarie Mcdowell, RN Journeyman Electrician Diabetes Education 03/17/23 Ravi Brownlee MD [address] [place] [address] 256905 Assigned Heart and Vascular Provider 09/04/23 01/03/24 Mitra Kendall, [facility] Lead Solar Installation Helper Primary Care - CC 12/12/23 Lizet Mann PA-C [address] [place], [place] [address] Assigned Cancer Care Provider 01/04/24 Ravi Brownlee MD [address] [place] [address] 276 [place], [place] 3285[address] Assigned Pulmonology Provider 01/04/24 Nav Hughes MD 6405 [facility] [address] [place], [place] 9[address] Assigned Heart and Vascular Provider 01/04/24 05/05/24 Manuel Ahn, OD 6341 [place], [place] 100[address] Credit Collections Specialist 01/05/24 Arabella Fishman MA Financial Resource Worker 01/06/24 03/19/24 Thalia Charles [facility] [address] [place], [place] [phone] Pharmacist Pharmacy 01/26/24 Gaurav Valenzuela APRN WIRE LATHER 606 [facility] 106 [place], [place] [address]124 Assigned Sleep Provider 02/04/24 Manuel Ahn, OD 6341 [place], [place] 666872 Assigned Surgical Provider 02/04/24 06/02/24 Debbie Mann MD 1600 [facility] 200 [place] [address] Cardiovascular Disease 02/24/24 Hakeem Chacko MBBS 2945 [place] [address] Assigned Rheumatology Provider 04/05/24 Debbie Mann MD 1600 [facility] 200 [place] [address] Assigned Heart and Vascular Provider 05/06/24 Timothy eTjada MD 6341 [place] [phone] Ophthalmology 05/29/24 Timothy Tejada MD 6341 [place] [address] Assigned Surgical Provider 06/03/24 Elsie Roberts APRN WIRE LATHER 1600 [facility] 101 [place] [address] Nurse Practitioner Pain Medicine 10/16/24 Cristy Morton MD [address] [place] [address] SHANKAR ROMO [id number] Assigned Pediatric Specialist Provider 11/03/24 Georgie Anguiano PA-C 6545 [facility] SHANKAR KESSLER [address] Assigned Neuroscience Provider 12/04/24 documented as of this encounter
--- OUTSIDE RECORDS SUMMARY | 2024-12-06 00:25 | XMS_ITS | Encounter Summary ---
Author Organization [facility] Address [address] [place] [address] Care Team Providers Care Occupational Ther Name Role Phone Va Glez MD Primary Care Provider Va Glez MD Unavailable Kerry Bernal RN Unavailable [phone] Ravi Barillas DPM Unavailable [phone] Christy CampuzanoC Unavailable [phone] Hans Cannon MD Unavailable Mitra Kendall MEDICAL LABORATORY SPECIALIST Unavailable [phone] Faith Templeton CHW Unavailable [phone] Burt Jovel MD Unavailable [phone] Burt Jovel MD Unavailable [phone] Estella Hassan [facility] Unavailable [phone] Sheila Matias Unavailable Unavailable Reji Chavez MD Unavailable Josh Cordero MD, Madhuri Unavailable [phone] Josh Cordero MD, Madhuri Unavailable [phone] Kelsi Hassan MD Unavailable [phone] John Webb MD Unavailable [phone] John Webb MD Unavailable Estella Hassan [facility] Unavailable Nav Hughes MD Unavailable [phone] Cassandra Mendoza MD Unavailable MoEstella H Unavailable Mitra Kendall MEDICAL LABORATORY SPECIALIST Unavailable Lindsay Carey OD Unavailable Ravi Brownlee MD Unavailable Arabella Fishman MA Unavailable [phone] Richard Kam MD Unavailable Marisol Patel RPH Unavailable Gaby Vila DO Unavailable Rosemarie Mcdowell RN Unavailable Ravi Brownlee MD Unavailable Mitra Kendall MEDICAL LABORATORY SPECIALIST Unavailable Lizet Mann PA-C Unavailable Ravi Brownlee MD Unavailable Nav Hughes MD Unavailable [phone] Manuel Ahn OD Unavailable Arabella Fishman MA Unavailable [phone] Thalia Charles [facility] Unavailable Gaurav Valenzuela APRN DYE STAND LOADER Unavailable Manuel Ahn OD Unavailable Debbie Mann MD Unavailable Hakeem Chacko Unavailable Debbie Mann MD Unavailable Timothy Tejada MD Unavailable [phone] Timothy Tejada MD Unavailable Elsie Roberts APRN, CNP Unavailable + Cristy Morton MD Unavailable Georgie Anguiano PA-C Unavailable [phone] Encounter Details Date Type Department Care Team (Late st Contact Info) Description 12/13/2019 [facility] Medical Advice [address] [phone] Kerry Bernal RN Social History [...] Answer Date Recorded PHQ-2 Score 0 09/13/2019 [facility] [place] of Occupat ional Health - Occupational Stress [...] on file Legal 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 [address] [place] [phone] Shanta Cooper, MOIZ 12/14/2024 11:20 AM CDT Office [facility] [address] [place] [phone] Lizet Mann PA-C [address] [place] [address] 12/17/2024 2:10 PM CDT Office Visit [facility] Orthopedic [facility] [address] [facility] 4th [place] [phone] Richard Kam MD [address] [place] [address] 12/19/2024 8:20 AM CDT Therapy Visit [address] [phone] Shanta Cooper, PT 12/24/2024 5:00 PM CDT Therapy Visit [address] [phone] Pattie Casillas, PT 12/25/2024 10:20 AM CDT Therapy Visit [address] [phone] Shanta Cooper, PT 01/03/2025 1:00 PM CDT Office Visit [address] [phone] [facility] 3033 [place] [address] 01/03/2025 1:30 PM CDT Office Visit [address] [phone] [place] Glez [place] [address] [place] [address] 01/08/2025 1:15 PM CDT Office Visit [address] [phone] Hakeem Chacko MBBS [address] [place] [address] Scheduled Procedures Name Priority Associated Diagnoses Date/Ti me INJECTION, EPIDURAL, TRANSFO RAMINAL APPROACH Cervical radiculitis RELEASE, CARPAL TUNNEL, ENDOSCOPIC Right carpal tunnel syndrome documented as of this encounter Visit Diagnoses Not on filedocumented in this encounter Additional Health Concerns Infection Onset Date Last Indicated Resolved Time Rule Out COVID-19 04/07/2020 04/07/2020 04/08/2020 7:51 PM DIVISION CHAIR Rule Out COVID-19 04/21/2020 04/21/2020 04/22/2020 5:44 PM DIVISION CHAIR Rule Out COVID-19 06/22/2021 06/22/2021 06/23/2021 8:58 PM CDT Rule Out COVID-19 01/22/2022 01/22/2022 01/24/2022 1:05 PM DIVISION CHAIR Rule Out COVID-19 01/25/2022 01/25/2022 01/25/2022 5:21 AM DIVISION CHAIR Influenza 01/25/2022 01/25/2022 02/01/2022 11:4 1 PM DIVISION CHAIR Rule Out COVID-19 07/29/2022 07/29/2022 07/31/2022 11:17 AM CDT Rule Out COVID-19 03/23/2023 03/23/2023 03/23/2023 6:30 PM DIVISION CHAIR COVID-19 03/23/2023 03/23/2023 04/13/2023 11:4 0 PM DIVISION CHAIR Rule Out COVID-19 06/05/2023 06/05/2023 06/05/2023 5:53 PM CDT Rule Out COVID-19 11/06/2023 11/06/2023 11/06/2023 11:05 PM CDT Rule Out COVID-19 11/20/2023 11/20/2023 11/20/2023 6:43 PM CDT Rule Out COVID-19 12/27/2023 12/27/2023 12/29/2023 1:37 PM CDT Rule Out COVID-19 03/01/2024 03/01/2024 03/01/2024 1:11 PM DIVISION CHAIR Rule Out COVID-19 07/18/2024 07/18/2024 07/19/2024 5:52 PM CDT Rule Out COVID-19 10/17/2024 10/17/2024 10/17/2024 11:23 PM CDT Rule Out C-difficile 11/04/2024 11/04/2024 025 1:55 AM CDT Assessment Noted Time PHQ-9 Depression Total Score: 4 09/14/19 20 7:06 AM CDT documented as of this encounter Care Teams Occupational Ther Relationship Specialty [place] [address] [place] [address] PCP - General Family Practice 07/11/14 [place] [address] [place] [address] Assigned PCP 12/16/11 Kerry Bernal RN Personal Advocate & Liaison (PAL) 01/08/19 07/10/23 Ravi Barillas DPM [address] [facility] 300 [place], [place] 8[address] Assigned Musculoskeletal Provider 03/23/20 10/30/21 Christy Campuzano PA-C [address] [place] [address] 909872 Referring Physician Family Medicine 04/22/20 Hans Cannon MD [address] [place] [address] 128502 Resident Pulmonary Disease 04/22/20 Mitra Kendall, MEDICAL LABORATORY SPECIALIST Lead Union Representative Primary Care - CC 01/08/1901/12 Faith Templeton, CHW Community Health Worker 04/30/2006/05 Burt Jovel MD Internal Medicine 05/08/20 12/13/23 Burt Jovel MD 2945 [facility] [address] [place], [place] [address] Assigned Heart and Vascular Provider 05/11/20 05/17/20 Estella Hassan, [facility] [address] [place] [address] Pharmacist Pharmacist 05/26/20 Sheila Matias Financial Resource Worker Primary Care - CC 06/02/20 06/02/20 [place] [address] [place] [address] [address] [place] [phone] Assigned Heart and Vascular Provider 05/18/20 10/30/21 Elaina Moreno MD 909 [place], [place] 288555 Assigned Surgical Provider 05/18/20 11/19/22 Elaina Moreno MD 909 [place] [address] Cardiovascular & Thoracic Surgery 08/06/20 Kelsi Hassan MD 2450 [place] [address] Assigned Pulmonology Provider 06/28/21 02/05/22 oJhn Webb MD [address] [place] [address] Cardiovascular Disease 08/25/21 John Webb MD [address] [place] [address] Cardiovascular Disease 08/25/21 Estella Hassan, [facility] 3033 [place] [address] Assigned MTM Pharmacist 09/05/21 Nav Hughes MD [address] [place] [address] Assigned Heart and Vascular Provider 10/31/21 09/03/23 Cassandra Mendoza MD ORTHOPAEDIC SURGERY [address] [address] Assigned Musculoskeletal Provider 10/31/21 08/13/22 Estella Hassan, [facility] [address] [place] [address] Assigned MTM Pharmacist 12/09/21 Mitra Kendall, MEDICAL LABORATORY SPECIALIST Lead Union Representative Primary Care - CC 01/26/2210/28 [place] [address] [place] [address] [place] [address] Ophthalmology 01/29/22 Ravi Brownlee MD [address] [place] [address] Assigned Pulmonology Provider 02/06/22 09/03/23 Arabella Fishman MA Financial Resource Worker 02/22/22 02/23/22 Richard Kam MD [address] [place] [address] Assigned Musculoskeletal Provider 08/14/22 [facility] [address] [place] [address] Pharmacist Pharmacist 11/22/22 01/09/23 [place] [address] [address] 164677 Assigned Neuroscience Provider 01/01/23 12/03/24 Rosemarie Mcdowell, RN Seamer Operator Diabetes Education 03/17/23 Ravi Brownlee MD [address] [place] [address] Assigned Heart and Vascular Provider 09/04/23 01/03/24 Mitra Kendall, MEDICAL LABORATORY SPECIALIST Lead Union Representative Primary Care - CC 12/12/23 Lizet Mann PA-C [address] [place] [address] Assigned Cancer Care Provider 01/04/24 Ravi Brownlee MD [address] [place] [address] Assigned Pulmonology Provider 01/04/24 Nav Hughes MD 6405 [facility] [address] [place], [place] 0[address] Assigned Heart and Vascular Provider 01/04/24 05/05/24 Manuel Ahn, OD 6341 [place] [address] New Car Get Ready Mechanic 01/05/24 Arabella Fishman MA Financial Resource Worker 01/06/24 03/19/24 Thalia Charles [facility] [address] [place], [place] [phone] Pharmacist Pharmacy 01/26/24 Gaurav Valenzuela APRN DYE STAND LOADER 606 [facility] 106 [place] [address] Assigned Sleep Provider 02/04/24 Manuel Ahn, OD 6341 [place] [address] Assigned Surgical Provider 02/04/24 06/02/24 Debbie Mann MD 1600 [facility] 200 [place], [place] [id number] Cardiovascular Disease 02/24/24 Hakeem Chacko MBBS [address]45 [place] [address] Assigned Rheumatology Provider 04/05/24 Debbie Mann MD 1600 [facility] 200 [place] [address] Assigned Heart and Vascular Provider 05/06/24 Timothy Tejada MD 6341 [facility] [address] Ophthalmology 05/29/24 Timothy Tejada MD 6341 [facility] [address] Assigned Surgical Provider 06/03/24 Elsie Roberts APRN [facility] 1600 [facility] 101 [place] [address] Nurse Practitioner Pain Medicine 10/16/24 Cristy Morton MD [address] [place] [address] SHANKAR ROMO [address] Assigned Pediatric Specialist Provider 11/03/24 Georgie Anguiano PA-C [address] [place] [address] Assigned Neuroscience Provider 12/04/24 documented as of this encounter
--- OUTSIDE RECORDS SUMMARY | 2024-12-06 00:25 | XMS_ITS | Encounter Summary ---
Author Organization [facility] Address [address] [place] [address] Care Team Providers Care Massage Therapist Name Role Phone Va Glez MD Primary Care Provider [phone] Va Glez MD Unavailable Christy Campuzano PAUniqueC Unavailable [phone] Hans Cannon MD Unavailable Estella Hassan [facility] Unavailable Josh Cordero MD, Madhuri Unavailable [phone] John Webb MD Unavailable [phone] John Webb MD Unavailable [phone] Estella Hassan [facility] Unavailable Lindsay Carey OD Unavailable Richard Kam MD Unavailable Gaby Vila DO Unavailable [phone] Rosemarie Mcdowell RN Unavailable Mitra Kendall QUALITY CONTROL INDUSTRIAL ENGINEER Unavailable [phone] Lizet Mann PA-C Unavailable Ravi Brownlee MD Unavailable Nav Hughes MD Unavailable [phone] Dayday Ahnen Kunal OD Unavailable Arabella Fishman MA Unavailable [phone] Thalia Chrales [facility] Unavailable Gaurav Valenzuela DECATING MACHINE OPERATOR REVENUE CYCLE CONSULTANT Unavailable Anabelle Manuel Syed OD Unavailable Debbie Mann MD Unavailable Hakeem ChackoBS Unavailable Debbie Mann MD Unavailable Timothy Tejada MD Unavailable Timothy Tejada MD Unavailable [phone] Elsie Roberts DECATING MACHINE OPERATOR REVENUE CYCLE CONSULTANT Unavailable + Cristy Morton MD Unavailable [phone] Georgie Anguiano PA-C Unavailable [phone] Encounter Details Date Type Department Care Team (Late st Contact Info) Description 01/26/2024 MyC Medical Advice [address] [address] [facility] [id number] [place] [address] Social History Tobacco Use Types Packs/Day [...] re latives? 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 Mikki just checked my blood sugar was 177 how is that that was at 730 am Sumeet Teixeira [facility] Pharmacist Consult (supporting Thalia Charles [facility])1 hour ago (7:24 AM) Jimmy Courtney it's Sumeet Devi how many clicks again for the second Ozempic injection also the paperworkyou sent with me got misplaced any chance to get another copy I could just pick it up at the commercial front load operator really need them thanks mikki [facility] resent mikki's recommendations on how to restart Ozempic ; FYi: 177 blood sugar is not too bad --optimum would be <130mg./dl. Alyssa Murillo [facility]. Medication Therapy Management Provider [phone] ONNEL AND PAYROLL TECHNICIAN documented in this encounter Plan of Treatment Upcoming Encounters Date Type Department Care Team (Late st Contact Info) Description 12/11/2024 2:10 PM CDT Therapy Visit [address] [address] Shanta Cooper, MOIZ 12/14/2024 11:20 AM CDT Office Visit [facility] [address] [place] [address] Lizet Mann PA-C [address] [place] [address] 12/17/2024 2:10 PM CDT Office Visit [facility] [address] [facility] 4th [place] [address] Richard Kam MD 500 [place] [address] 12/19/2024 8:20 AM CDT Therapy Visit [address] [place] [address] Shanta Cooper, PT 12/24/2024 5:00 PM CDT Therapy Visit [address] [place] [address] Pattie Casillas, PT 12/25/2024 10:20 AM CDT Therapy Visit [address] [place] [address] Shanta Cooper, PT 01/03/2025 1:00 PM CDT Office Visit [address] [phone] Estella Hassan, [facility] 30[address] [place] [address] 01/03/2025 1:30 PM CDT Office Visit [address] [phone] Va Glez MD [address] [place] [address] 01/08/2025 1:15 PM CDT Office Visit [facility] 2945 [facility] 200 [place] [address] Hakeem Chacko MBBS 2945 [place] [address] Scheduled Procedures Name Priority Associated Diagnoses Date/Ti [...] for health insurance by looking in to [employer] and talking with a FRW. Completed 3. [...] work with FRW in applying for [facility], county assistance and to see if I qualify for Medicaid. I need to ask spouse what her income is as it goes by household income. 2. I will contact [employer] [facility] Line to ask about medicare plans and if there are saving programs I qualify for by by calling [phone]. 3. I will see if I am eligible for unemployment after losing my job. I will call [phone] to ask for assistance with unemployment application. 4. I will apply for jobs. I will work with [employer] in finding a job ([employer].) 5. I will access [employer] and ask about financial resources (such as [...] Out COVID-19 03/01/2024 03/01/2024 03/01/2024 1:11 PM PERSONNEL AND PAYROLL TECHNICIAN Rule Out COVID-19 07/18/2024 07/18/2024 07/19/2024 5:52 PM CDT Rule Out COVID-19 10/17/2024 10/17/2024 10/17/2024 11:23 PM CDT Rule Out C-difficile 11/04/2024 11/04/2024 025 1:55 AM CDT Assessment Noted Time PHQ-9 Depression Total Score: 9 12/23/19 24 12:36 PM CDT documented as of this encounter Care Teams Massage Therapist Relationship Specialty [place] [address] [place] [address] PCP - General Family Practice 07/11/14 [place] [address] [place] [address] Assigned PCP 12/16/11 Christy Campuzano PA-C [address] [place] [address] 916742 Referring Physician Family Medicine 04/22/20 Hans Cannon MD [address] [place] [address] 824982 Resident Pulmonary Disease 04/22/20 Estella Hassan, [facility] 3033 [place] [address] Pharmacist Pharmacist 05/26/20 Elaina Moreno MD [address] [place] [address] Cardiovascular & Thoracic Surgery 08/06/20 John Webb MD [address] [place] 44[address] Cardiovascular Disease 08/25/21 John Webb MD [address] [place] 714015 Cardiovascular Disease 08/25/21 Estella Hassan, [facility] 30[address] [place] [address] Assigned MTM Pharmacist 12/09/21 Lindsay Carey OD [address] [facility] [place] [address] Ophthalmology 01/29/22 Richard Kam MD [address] [place] [address] Assigned Musculoskeletal Provider 08/14/22 [place] [address] [address] Assigned Neuroscience Provider 01/01/23 12/03/24 Rosemarie Mcdowell RN [facility] Diabetes Education 03/17/23 Mitra Kendall, QUALITY CONTROL INDUSTRIAL ENGINEER Lead Brazing Machine Operator Automatic [facility] - CC 12/12/23 Lizet Mann PA-C [address] [place] [address] Assigned Cancer Care Provider 01/04/24 Ravi Brownlee MD [address] [place] [address] 276 [place], [place] 736075 Assigned Pulmonology Provider 01/04/24 Nav Hughes MD 6405 [facility] [address] [place], [place] 17[address] Assigned Heart and Vascular Provider 01/04/24 05/05/24 Manuel Ahn OD 6341 [place], [place] 660[address] Sod Cutter 01/05/24 Arabella Fishman MA Financial Resource Worker 01/06/24 03/19/24 Thalia Charles [facility] [address] [place], [place] [phone] Pharmacist Pharmacy 01/26/24 Gaurav Valenzuela APRN REVENUE CYCLE CONSULTANT [address] [place] [address] [place], [place] 00[address] Assigned Sleep Provider 02/04/24 Manuel Ahn, OD 6341 [place], [place] 078172 Assigned Surgical Provider 02/04/24 06/02/24 Debbie Mann MD 1600 [facility] 200 [place] [address] Cardiovascular Disease 02/24/24 Hakeem Chacko MBBS 2945 [place] [address] Assigned Rheumatology Provider 04/05/24 Debbie Mann MD 1600 [facility] 200 [place] [address] Assigned Heart and Vascular Provider 05/06/24 Timothy Tejada MD 6341 [place] [phone] Ophthalmology 05/29/24 Timothy Tejada MD 6341 [place] [phone] Assigned Surgical Provider 06/03/24 Elsie Roberts APRN REVENUE CYCLE CONSULTANT [address] [facility] 101 [place] [address] Nurse Practitioner Pain Medicine 10/16/24 Cristy Morton MD [address] [place] [address] [place]ANK[place] ROMO [id number] Assigned Pediatric Specialist Provider 11/03/24 Georgie Anguiano PA-C 6545 [facility] [place] [address] Assigned Neuroscience Provider 12/04/24 documented as of this encounter
--- OUTSIDE RECORDS SUMMARY | 2024-12-06 00:25 | XMS_ITS ---
Author Organization [facility] Address [address] [place] [address] Care Team Providers Care Bisque Ware Dipper Name Role Phone Va Glez MD Primary Care Provider [phone] Va Glez MD Unavailable Christy Campuzano PA-C Unavailable [phone] Hans Cannon MD Unavailable Estella Hassan [facility] Unavailable Josh Cordero MD, Madhuri Unavailable [phone] John Webb MD Unavailable John Webb MD Unavailable Estella Hassan [facility] Unavailable [phone] Lindsay Carey OD Unavailable [phone] Richard Kam MD Unavailable Rosemarie Mcdowell RN Unavailable Mitra Kendall CHAIR MAKER Unavailable Lizet Mann PA-C Unavailable Ravi Brownlee MD Unavailable Manuel Ahn OD Unavailable [phone] Thalia Charles [facility] Unavailable Gaurav Valenzuela TALENT MANAGEMENT MANAGER CODING COMPLIANCE MANAGER Unavailable [phone] Debbie Mann MD Unavailable [phone] Hakeem Chacko Unavailable Debbie Mann MD Unavailable [phone] Timothy Tejada MD Unavailable [phone] Timothy Tejada MD Unavailable [phone] Elsie Roberts APRN CODING COMPLIANCE MANAGER Unavailable + Cristy Morton MD Unavailable [phone] Georgie Anguiano PA-C Unavailable [phone] Transitional Care Management Status:Closed (Closed) Start date:11/07/2024 Enrollment date:11/07/2024 End date:11/21/2024 Close reason:Goals met Continued Care and Services Coordination
--- OUTSIDE RECORDS SUMMARY | 2024-12-06 00:25 | XMS_ITS ---
Author Organization [facility] Address [address] [place] [address] Care Team Providers Care Potato Chip Packaging Machine Operator Name Role Phone Va Glez MD Primary Care Provider [phone] Va Glez MD Unavailable Christy Campuzano PA-C Unavailable Hans Cannon MD Unavailable [phone] Estella Hassan [facility] Unavailable Josh Cordero MD, Madhuri Unavailable [phone] John Webb MD Unavailable John Webb MD Unavailable Estella Hassan [facility] Unavailable [phone] Lindsay Carey OD Unavailable Richard Kam MD Unavailable Rosemarie Mcdowell RN Unavailable Mitra Kendall OIL BURNER JOURNEYMAN Unavailable Lizet Mann PA-C Unavailable Ravi Brownlee MD Unavailable Manuel Ahn OD Unavailable Thalia Charles [facility] Unavailable [phone] [address] FI[address] SUPERINTENDENT COURT ABSTRACTOR Unavailable [phone] Debbie Mann MD Unavailable [phone] Hakeem Chacko Unavailable Debbie Mann MD Unavailable [phone] Timothy Tejada MD Unavailable [phone] Timothy Tejada MD Unavailable [phone] ABSTRACTOR Unavailable + Cristy Morton MD Unavailable [phone] Georgie Anguiano PA-C Unavailable [phone] Primary Care Care Coordination Status:Enrolled (Active) Start date:12/12/2023 Enrollment date:12/16/2023 Case Team Name Relationship Phone Mitra SHEPPARD(Responsible Staff) Lead Technical Sales Consultant [phone] Continued Care and Services Coordination
--- OUTSIDE RECORDS SUMMARY | 2024-12-06 00:26 | XMS_ITS | Encounter Summary ---
Author Organization [facility] Address [address] [place] [address] Care Team Providers Care Life Coach Name Role Phone Va Glez MD Primary Care Provider Va Glez MD Unavailable Christy Campuzano PAUniqueC Unavailable [phone] Hans Cannon MD Unavailable Estella Hassan [facility] Unavailable Josh Cordero MD, Madhuri Unavailable [phone] John Webb MD Unavailable [phone] John Webb MD Unavailable Estella Hassan [facility] Unavailable Lindsay Carey OD Unavailable Richard Kam MD Unavailable Gaby Vila DO Unavailable Rosemarie Mcdowell RN Unavailable Mitra Kendall FUR DRESSER Unavailable [phone] Lizet Mann PA-C Unavailable Ravi Brownlee MD Unavailable Nav Hughes MD Unavailable [phone] Manuel Ahn OD Unavailable Arabella Fishman MA Unavailable [phone] Thalia Charles [facility] Unavailable [phone] Gaurav Valenzuela CLIENT HR MANAGER CLIENT COORDINATOR Unavailable [phone] Dayday Ahngina Syed OD Unavailable [phone] Debbie Mann MD Unavailable [phone] Hakeem Chacko MBBS Unavailable Debbie Mann MD Unavailable [phone] Timothy Tejada MD Unavailable [phone] Timothy Tejada MD Unavailable [phone] Elsie Roberts CLIENT HR MANAGER CLIENT COORDINATOR Unavailable + Cristy Morton MD Unavailable [phone] Georgie Anguiano PA-C Unavailable [phone] Encounter Details Date Type Department Care Team (Late st Contact Info) Description 01/16/2024 MyC Medical Advice [facility] [address] [address] Dino Ponce, RN Social History Tobacco Use Types Packs/Day [...] re latives? 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 Gender Identity Not on file Sexual Orientation Not on file Occupation Industry Job Start Date Job End Date Not on file Not on file Not on file Not on file documented as of this encounter Plan of Treatment Upcoming Encounters Date Type Department Care Team (Late st Contact Info) Description 12/11/2024 2:10 PM CDT Therapy Visit [address] [phone] Shanta Cooper, PT 12/14/2024 11:20 AM CDT Office Visit [address] [address] Lizet Mann PA-C [address] [place] [address] 12/17/2024 2:10 PM CDT Office Visit [facility] [address] [place] [address] Richard Kam MD [address] [place] [address] 12/19/2024 8:20 AM CDT Therapy Visit [address] [phone] Shanta Cooper, PT 12/24/2024 5:00 PM CDT Therapy Visit [address] [phone] Pattie Casillas, PT 12/25/2024 10:20 AM CDT Therapy Visit [facility] [address] [place] [phone] Shanta Cooper, PT 01/03/2025 1:00 PM CDT Office Visit [facility] [address] [place] [phone] Estella Hassan, [facility] 3033 [place] [address] 01/03/2025 1:30 PM CDT Office Visit [facility] [address] [place] [phone] [place] [address] [place], [place] [phone] 01/08/2025 1:15 PM CDT Office Visit [facility] 2945 [facility] 200 [place] [phone] Hakeem Chacko MBBS 2945 [place], [place] [phone] Scheduled Procedures Name Priority Associated Diagnoses Date/Ti me INJECTION, EPIDURAL, TRANSFO RAMINAL APPROACH Cervical radiculitis RELEASE, CARPAL TUNNEL, ENDOSCOPIC Right carpal tunnel syndrome documented as of this encounter Goals Goal Patient Goal Type Associated Problems Recent Progress Patient-Stated? Author Health Maintenance Care Plan HP GENERAL PROBLEM 100%(10/29/19 10:17 AM CDT) No Mitra Kendall, FUR DRESSER Note: Update on 05/25/22 Barriers: Currently without [...] for health insurance by looking in to [employer] and talking with a FRW. Completed 3. I will look for a new job and will access resources that the [employer] offers. . Sarted new job 4. Continue [...] will work with FRW in applying for [facility], county assistance and to see if I qualify for Medicaid. I need to ask spouse what her income is as it goes by household income. 2. I will contact [facility] Line to ask about medicare plans and if there are saving programs I qualify for by by calling [phone]. 3. I will see if I am eligible for unemployment after losing my job. I will call [phone] to ask for assistance with unemployment application. 4. I will apply for jobs. I will work with [employer] in finding a job ([employer].) 5. I will access [employer] and ask about financial resources (such as [...] Out COVID-19 03/01/2024 03/01/2024 03/01/2024 1:11 PM WILDLIFE REHABILITATOR Rule Out COVID-19 07/18/2024 07/18/2024 07/19/2024 5:52 PM CDT Rule Out COVID-19 10/17/2024 10/17/2024 10/17/2024 11:23 PM CDT Rule Out C-difficile 11/04/2024 11/04/2024 025 1:55 AM CDT Assessment Noted Time PHQ-9 Depression Total Score: 9 12/23/19 24 12:36 PM CDT documented as of this encounter Care Teams Life Coach Relationship Specialty [place] [address] [place] [address] PCP - General Family Practice 07/11/14 [place] [address] [place] [address] Assigned PCP 12/16/11 Christy Campuzano PA-C [address] [place] [address] 035912 Referring Physician Family Medicine 04/22/20 Hans Cannon MD [address] [place] [address] Resident Pulmonary Disease 04/22/20 Estella Hassan, [facility] [place] [address] Pharmacist Pharmacist 05/26/20 Elaina Moreno MD [address] [place] [address] Cardiovascular & Thoracic Surgery 08/06/20 John Webb MD [address] [place] [address] Cardiovascular Disease 08/25/21 John Webb MD [address] [place] 838305 Cardiovascular Disease 08/25/21 Estella Hassan, [facility] [place] 714[address] Assigned MTM Pharmacist 12/09/21 Lindsay Carey OD [address] [facility] [address] Ophthalmology 01/29/22 Richard Kam MD [address] [place] [address] 382415 Assigned Musculoskeletal Provider 08/14/22 [place] [address] [place] , [address] [address] Assigned Neuroscience Provider 01/01/23 12/03/24 Rosemarie Mcdowell RN Printed Circuit Board Panels Deburrer Diabetes Education 03/17/23 Mitra Kendall, FUR DRESSER Lead Spray Maker Primary Care - CC 12/12/23 Lizet Mann PA-C [address] [place] [address] [place] [address] Assigned Cancer Care Provider 01/04/24 Ravi Brownlee MD [address] [place] [address] Assigned Pulmonology Provider 01/04/24 Nav Hughes MD 6405 [facility] [place] 907465 Assigned Heart and Vascular Provider 01/04/24 05/05/24 Manuel Ahn OD 6341 [facility] [place] [address] Corporate Ethics Officer 01/05/24 Arabella Fishman MA Financial Resource Worker 01/06/24 03/19/24 MelvinThalia [facility] [address] [place], [place] [phone] Pharmacist Pharmacy 01/26/24 Gaurav Valenzuela APRN CLIENT COORDINATOR 606 [facility] 106 [place], [place] [address]404 Assigned Sleep Provider 02/04/24 Manuel Ahn OD 6341 [place] [address] Assigned Surgical Provider 02/04/24 06/02/24 Debbie Mann MD 1600 [facility] 200 [place] [address] Cardiovascular Disease 02/24/24 Hakeem Chacko MBBS 2945 [place] [address] Assigned Rheumatology Provider 04/05/24 Debbie Mann MD 1600 [facility] 200 [place] [address] Assigned Heart and Vascular Provider 05/06/24 Timothy Tejada MD 6341 [place] [address] Ophthalmology 05/29/24 Timothy Tejada MD [address] [place] [address] Assigned Surgical Provider 06/03/24 Elsie Roberts APRN CLIENT COORDINATOR 1600 [facility] [place] [place] [address] Nurse Practitioner Pain Medicine 10/16/24 Cristy Morton MD 1440 [facility] [place] [address] Assigned Pediatric Specialist Provider 11/03/24 Geogrie Anguiano PA-C [address] [place] [address] Assigned Neuroscience Provider 12/04/24 documented as of this encounter
--- OUTSIDE RECORDS SUMMARY | 2024-12-06 00:26 | XMS_ITS | Encounter Summary ---
Author Organization [facility] Address [address] [place] [address] Care Team Providers Care Certified Bench Jeweler Technician Name Role Phone Va Glez MD Primary Care Provider [phone] Va Glez MD Unavailable Kerry Bernal RN Unavailable [phone] Ravi Barillas DPM Unavailable [phone] Christy CampuzanoC Unavailable [phone] Hans Cannon MD Unavailable [phone] Mitra Kendall PATHOLOGY TRANSCRIPTIONIST Unavailable [phone] Faith Templeton CHW Unavailable [phone] Burt Jovel MD Unavailable [phone] Burt Jovel MD Unavailable [phone] Estella Hassan [facility] Unavailable [phone] Sheila Matias Unavailable Unavailable Reji Chavez MD Unavailable [phone] Josh Cordero MD, Madhuri Unavailable [phone] Josh Cordero MD, Madhuri Unavailable [phone] Kelsi Hassan MD Unavailable [phone] John Webb MD Unavailable [phone] John Webb MD Unavailable Estella Hassan [facility] Unavailable Nav Hughes MD Unavailable [phone] Cassandra Mendoza MD Unavailable MoEstella H Unavailable Mitra Kendall PATHOLOGY TRANSCRIPTIONIST Unavailable Lindsay Carey OD Unavailable Ravi Brownlee MD Unavailable Arabella Fishman MA Unavailable [phone] Richard Kam MD Unavailable Marisol Patel RPH Unavailable Gaby Vila DO Unavailable Rosemarie Mcdowell RN Unavailable Ravi Brownlee MD Unavailable Mitra Kendall PATHOLOGY TRANSCRIPTIONIST Unavailable Lizet Mann PA-C Unavailable Ravi Brownlee MD Unavailable Nav Hughes MD Unavailable [phone] Manuel Ahn OD Unavailable [phone] Arabella Fishman MA Unavailable [phone] Thalia Charles [facility] Unavailable Gaurav Valenzuela APRN FORENSIC MEDICAL EXAMINER Unavailable Manuel Ahn OD Unavailable Debbie Mann MD Unavailable Hakeem Chacko Unavailable Debbie Mann MD Unavailable Timothy Tejada MD Unavailable Timothy Tejada MD Unavailable [phone] Elsie Roberts APRN, CNP Unavailable + Cristy Morton MD Unavailable Georgie Anguiano PA-C Unavailable Reason for Visit * Reason Comments Medication Refill Encounter Details Date Type Department Care Team (Late st Contact Info) Description 07/11/2019 Refill [facility] [id number] [place] [phone] [place] [id number] [place] [address] Medication Refill Social History Tobacco Use [...] and Family Not on file 05/31/2019 Attends [employer] Not on file 05/30 Active Member [...] Answer Date Recorded PHQ-2 Score 1 02/12/2019 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 Va Glez MD [facility] [phone] * Telephone Encounter - Reanna Quigley RN - 07/11/2019 2:15 PM CDT Routing refill request to provider for review/approval because: Labs not current: A1C Reanna Quigley, RN [facility] -- Triage Nurse documented in this encounter Plan of Treatment Upcoming Encounters Date Type Department Care Team (Late st Contact Info) Description 12/11/2024 2:10 PM CDT Therapy Visit [address] [phone] Shanta Cooper, PT 12/14/2024 11:20 AM CDT Office Visit [facility] [id number] [place] [address] [place] [address] Lizet Mann PA-C [id number] [place] [address] 12/17/2024 2:10 PM CDT Office Visit [facility] Orthopedic [address] [place] [phone] Richard Kam MD [address] [place] [address] 12/19/2024 8:20 AM CDT Therapy Visit [address] [phone] Shanta Cooper, PT 12/24/2024 5:00 PM CDT Therapy Visit [address] [phone] Pattie Casillas, PT 12/25/2024 10:20 AM CDT Therapy Visit [place] [address] [place] [address] Shanta Cooper, MOIZ 01/03/2025 1:00 PM CDT Office Visit [facility] [address] [place] [phone] Estella Hassan, [facility] [address] [place] [address] 01/03/2025 1:30 PM CDT Office Visit [facility] [address] [place] [phone] [place] [address] [place], [place] [phone] 01/08/2025 1:15 PM CDT Office Visit [facility] [address] [facility] [address] [place] [address] Hakeem Chacko MBBS [address] [place] [address] Scheduled Procedures Name Priority Associated Diagnoses Date/Ti me INJECTION, EPIDURAL, TRANSFO RAMINAL APPROACH Cervical radiculitis RELEASE, CARPAL TUNNEL, ENDOSCOPIC Right carpal tunnel syndrome documented as of this encounter Visit Diagnoses Diagnosis Pre-diabetes Other abnormal glucose documented in this encounter Additional Health Concerns Infection Onset Date Last Indicated Resolved Time Rule Out COVID-19 04/07/2020 04/07/2020 04/08/2020 7:51 PM HAND QUILTER Rule Out COVID-19 04/21/2020 04/21/2020 04/22/2020 5:44 PM HAND QUILTER Rule Out COVID-19 06/22/2021 06/22/2021 06/23/2021 8:58 PM CDT Rule Out COVID-19 01/22/2022 01/22/2022 01/24/2022 1:05 PM HAND QUILTER Rule Out COVID-19 01/25/2022 01/25/2022 01/25/2022 5:21 AM HAND QUILTER Influenza 01/25/2022 01/25/2022 02/01/2022 11:4 1 PM HAND QUILTER Rule Out COVID-19 07/29/2022 07/29/2022 07/31/2022 11:17 AM CDT Rule Out COVID-19 03/23/2023 03/23/2023 03/23/2023 6:30 PM HAND QUILTER COVID-19 03/23/2023 03/23/2023 04/13/2023 11:4 0 PM HAND QUILTER Rule Out COVID-19 06/05/2023 06/05/2023 06/05/2023 5:53 PM CDT Rule Out COVID-19 11/06/2023 11/06/2023 11/06/2023 11:05 PM CDT Rule Out COVID-19 11/20/2023 11/20/2023 11/20/2023 6:43 PM CDT Rule Out COVID-19 12/27/2023 12/27/2023 12/29/2023 1:37 PM CDT Rule Out COVID-19 03/01/2024 03/01/2024 03/01/2024 1:11 PM HAND QUILTER Rule Out COVID-19 07/18/2024 07/18/2024 07/19/2024 5:52 PM CDT Rule Out COVID-19 10/17/2024 10/17/2024 10/17/2024 11:23 PM CDT Rule Out C-difficile 11/04/2024 11/04/2024 025 1:55 AM CDT Assessment Noted Time PHQ-9 Depression Total Score: 5 02/13/20 19 12:25 PM HAND QUILTER documented as of this encounter Care Teams Certified Bench Jeweler Technician Relationship Specialty [place] [address] [place] [address] PCP - General Family Practice 07/11/14 [place] [address] [place] [address] Assigned PCP 12/16/11 Kerry Bernal, RN Personal Advocate & Liaison (PAL) 01/08/19 07/10/23 Ravi Barillas DPM [address] [facility] [address] [place] [address] Assigned Musculoskeletal Provider 03/23/20 10/30/21 Christy Campuzano PA-C [address] [place] [address] [phone] Referring Physician Family Medicine 04/22/20 [place] [address] [place] [address] 691962 Resident Pulmonary Disease 04/22/20 Mitra Kendall, PATHOLOGY TRANSCRIPTIONIST Lead Hogshead Inspector Primary Care - CC 01/08/1901/12 Faith Templeton, W Community Health Worker 04/30/2006/05 Burt Jovel MD Internal Medicine 05/08/20 12/13/23 Burt Jovel MD [facility] [place] [address] [place], [place] [id number] Assigned Heart and Vascular Provider 05/11/20 05/17/20 Estella Hassan, [facility] [address] [place] [address] Pharmacist Pharmacist 05/26/20 Sheila Matias Financial Resource Worker Primary Care - CC 06/02/20 06/02/20 Reji Chavez MD [address] [place] [phone] Assigned Heart and Vascular Provider 05/18/20 10/30/21 Elaina Moreno MD 909 [place] [address] Assigned Surgical Provider 05/18/20 11/19/22 Elaina Moreno MD [address] [place] [address] Cardiovascular & Thoracic Surgery 08/06/20 Kelsi Hassan MD [address] [place] [address] Assigned Pulmonology Provider 06/28/21 02/05/22 John Webb MD [address] 629175 Cardiovascular Disease 08/25/21 John Webb MD [address] [address] Cardiovascular Disease 08/25/21 Estella Hassan, [facility] [address] [place] [address] Assigned MTM Pharmacist 09/05/21 Nav Hughes MD [address] [place] [address] Assigned Heart and Vascular Provider 10/31/21 09/03/23 Cassandra Mendoza MD ORTHOPAEDIC SURGERY [address] [address] Assigned Musculoskeletal Provider 10/31/21 08/13/22 Estella Hassan, [facility] [address] [place] [address] Assigned MTM Pharmacist 12/09/21 Mitra Kendall, [facility] Lead Hogshead Inspector Primary Care - CC 01/26/2210/28 [place] [address] [place] [address] [place] [address] Ophthalmology 01/29/22 Ravi Brownlee MD 420 [facility] 276 [place], [place] 253075 Assigned Pulmonology Provider 02/06/22 09/03/23 Arabella Fishman MA Financial Resource Worker 02/22/22 02/23/22 Richard Kam MD [address] [place] [address] Assigned Musculoskeletal Provider 08/14/22 Marisol Patel, [facility] [address] [place] [address] Pharmacist Pharmacist 11/22/22 01/09/23 [place] [address] [address] Assigned Neuroscience Provider 01/01/23 12/03/24 Rosemarie Mcdowell RN Investment Banker Diabetes Education 03/17/23 Ravi Brownlee MD [address] 664225 Assigned Heart and Vascular Provider 09/04/23 01/03/24 Mitra Kendall, [facility] Lead Hogshead Inspector Primary Care - CC 12/12/23 Lizet Mann PA-C [address] [place] [address] 047999 Assigned Cancer Care Provider 01/04/24 Ravi Brownlee MD [address] [address] Assigned Pulmonology Provider 01/04/24 Nav Hughes MD [address] [facility] [place] 836055 Assigned Heart and Vascular Provider 01/04/24 05/05/24 Maunel Ahn OD [address] [facility] [place] 649362 Mutual Fund Manager 01/05/24 Arabella Fishman MA Financial Resource Worker 01/06/24 03/19/24 Thalia Charles [facility] [address] [place] [address] Pharmacist Pharmacy 01/26/24 Gaurav Valenzuela APRN FORENSIC MEDICAL EXAMINER [address] [facility] 106 [place] [address] Assigned Sleep Provider 02/04/24 Manuel Ahn OD 6[address] [place], [place] 787722 Assigned Surgical Provider 02/04/24 06/02/24 Debbie Mann MD 1600 [facility] 200 [place] [address] Cardiovascular Disease 02/24/24 Hakeem Chacko MBBS [address] [place] [address] Assigned Rheumatology Provider 04/05/24 Debbie Mann MD 1600 [facility] 200 [place] [address] Assigned Heart and Vascular Provider 05/06/24 Timothy Tejada MD [address] [place] [phone] Ophthalmology 05/29/24 Timothy Tejada MD [address] [place] [address] Assigned Surgical Provider 06/03/24 Elsie Roberts APRN FORENSIC MEDICAL EXAMINER 1600 [facility] 101 [place] [address] Nurse Practitioner Pain Medicine 10/16/24 Cristy Morton MD [facility] [address]O [id number] Assigned Pediatric Specialist Provider 11/03/24 Georgie Anguiano PA-C [address] 931575 Assigned Neuroscience Provider 12/04/24 documented as of this encounter
--- OUTSIDE RECORDS SUMMARY | 2024-12-06 00:26 | XMS_ITS | Encounter Summary ---
Author Organization [facility] Address [address] [place] [address] Care Team Providers Care Water Softener Servicer And Installer Name Role Phone Va Glez MD Primary Care Provider Va Glez MD Unavailable Kerry Bernal RN Unavailable Christy Campuzano PA-C Unavailable Hans Cannon MD Unavailable Burt Jovel MD Unavailable [phone] Estella Hassan [facility] Unavailable Josh Cordero MD, Madhuri Unavailable [phone] Josh Cordero MD, Madhuri Unavailable [phone] Kelsi Hassan MD Unavailable [phone] John Webb MD Unavailable [phone] John Webb MD Unavailable [phone] Nav Hughes MD Unavailable [phone] Cassandra Mendoza MD Unavailable Estella Hassan [facility] Unavailable [phone] Mitra Kendall CENTRAL OFFICE TECHNICIAN Unavailable Linsday Carey OD Unavailable [phone] Ravi Brownlee MD Unavailable Arabella Fishman MA Unavailable [phone] Richard Kam MD Unavailable Marisol Patel Molly Jacques H Unavailable Julito Gaby Patti DO Unavailable Rosemarie Mcdowell RN Unavailable Ravi Brownlee MD Unavailable Mitra Kendall CENTRAL OFFICE TECHNICIAN Unavailable Lizet MannC Unavailable Ravi Brownlee MD Unavailable Nav Hughes MD Unavailable [phone] Manuel Ahn OD Unavailable Arabella Fishman MA Unavailable [phone] Allen Charleslla [facility] Unavailable Gaurav Valenzuela APRN TRUST VAULT CLERK Unavailable Manuel Ahn OD Unavailable Debbie Mann MD Unavailable Hakeem Chacko Unavailable Debbie Mann MD Unavailable Timothy Tejada MD Unavailable Timothy Tejada MD Unavailable Elsie Roberts APRN TRUST VAULT CLERK Unavailable + Cristy Morton MD Unavailable Georgie Anguiano PA-C Unavailable Encounter Details Date Type Department Care Team (Late st Contact Info) Description 01/29/[address] [facility] [address] [place] [address] Bc Cochran Social History Tobacco Use Types [...] and Family Not on file 05/31/2019 Attends [employer] Services Not on file 05/30 Active Member [...] Answer Date Recorded PHQ-2 Score 1 01/28/2022 [facility] of Occupat ional Health - Occupational Stress [...] place to sleep or slept in a senior living (including now)? 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 No / Unsure 01/29/2022 2:12 PM OIL RECOVERY OPERATOR documented as of this encounter Plan of Treatment Upcoming Encounters Date Type Department Care Team (Late st Contact Info) Description 12/11/2024 2:10 PM CDT Therapy Visit [facility] [address] [place] [phone] Shanta Cooper, MOIZ 12/14/2024 11:20 AM CDT Office Visit [facility] [address] [place] [address] [place] [phone] Lizet Mann PA-C [id number] [place], [place] [address]E [facility] [place] [address] 12/17/2024 2:10 PM CDT Office Visit [facility] Orthopedic [facility] 9[address] [facility] 4th [place] [phone] Richard Kam MD [address] [place] [address] 12/19/2024 8:20 AM CDT Therapy Visit [address] [address] Shanta Cooper, PT 12/24/2024 5:00 PM CDT Therapy Visit [address] [address] Pattie Casillas, PT 12/25/2024 10:20 AM CDT Therapy Visit [address] [address] Shanta Cooper, PT 01/03/2025 1:00 PM CDT Office Visit [address] [phone] Estella Hassan, [facility] [address] [place] [address] 01/03/2025 1:30 PM CDT Office Visit [address] [phone] Va Glez MD [address] [place] [address] 01/08/2025 1:15 PM CDT Office Visit [address] [address] Hakeem Chacko MBBS [address] [place] [address] [id number] Scheduled Procedures Name Priority Associated Diagnoses Date/Ti me INJECTION, EPIDURAL, TRANSFO RAMINAL APPROACH Cervical radiculitis RELEASE, CARPAL TUNNEL, ENDOSCOPIC Right carpal tunnel syndrome documented as of this encounter Visit Diagnoses Not on filedocumented in this encounter Additional Health Concerns Infection Onset Date Last Indicated Resolved Time Influenza 01/25/2022 01/25/2022 02/01/2022 11:4 1 PM OIL RECOVERY OPERATOR Rule Out COVID-19 07/29/2022 07/29/2022 07/31/2022 11:17 AM CDT Rule Out COVID-19 03/23/2023 03/23/2023 03/23/2023 6:30 PM OIL RECOVERY OPERATOR COVID-19 03/23/2023 03/23/2023 04/13/2023 11:4 0 PM OIL RECOVERY OPERATOR Rule Out COVID-19 06/05/2023 06/05/2023 06/05/2023 5:53 PM CDT Rule Out COVID-19 11/06/2023 11/06/2023 11/06/2023 11:05 PM CDT Rule Out COVID-19 11/20/2023 11/20/2023 11/20/2023 6:43 PM CDT Rule Out COVID-19 12/27/2023 12/27/2023 12/29/2023 1:37 PM CDT Rule Out COVID-19 03/01/2024 03/01/2024 03/01/2024 1:11 PM OIL RECOVERY OPERATOR Rule Out COVID-19 07/18/2024 07/18/2024 07/19/2024 5:52 PM CDT Rule Out COVID-19 10/17/2024 10/17/2024 10/17/2024 11:23 PM CDT Rule Out C-difficile 11/04/2024 11/04/2024 025 1:55 AM CDT Assessment Noted Time PHQ-9 Depression Total Score: 4 01/29/20 22 3:29 PM OIL RECOVERY OPERATOR documented as of this encounter Care Teams Water Softener Servicer And Installer Relationship Specialty [place] [address] [place] [address] PCP - General Family Practice 07/11/14 [place] [address] [place] [address] Assigned PCP 12/16/11 Kerry Bernal, INOCENCIO Personal Advocate & Liaison (PAL) 01/08/19 07/10/23 Christy Campuzano PA-C [address] [place] [address] 215102 Referring Physician Family Medicine 04/22/20 Hans Cannon MD [address] [place] [address] Resident Pulmonary Disease 04/22/20 Burt Jovel MD [address] [place] [address] 428222 Internal Medicine 05/08/20 12/13/23 Estella Hassan, [facility] [address] [place] [address] Pharmacist Pharmacist 05/26/20 Elaina Moreno MD [address] [place] [address] 852125 Assigned Surgical Provider 05/18/20 11/19/22 Elaina Moreno MD [address] [place] [address] Cardiovascular & Thoracic Surgery 08/06/20 Kelsi Hassan MD [address] [place] [address] Assigned Pulmonology Provider 06/28/21 02/05/22 John Webb MD [address] 997845 Cardiovascular Disease 08/25/21 John Webb MD [address] [place] 8[address]215 Cardiovascular Disease 08/25/21 Nav Hughes MD [address] 632885 Assigned Heart and Vascular Provider 10/31/21 09/03/23 Cassandra Mendoza MD ORTHOPAEDIC SURGERY [address] [address] Assigned Musculoskeletal Provider 10/31/21 08/13/22 Estella Hassan, [facility] [address] [place] [address] Assigned MTM Pharmacist 12/09/21 Mitra Kendall, [facility] Lead Sister Superior Primary Care - CC 01/26/2210/28 Lindsay Carey OD [address] [facility] [place] [address] Ophthalmology 01/29/22 Ravi Brownlee MD [address] [place] [address] Assigned Pulmonology Provider 02/06/22 09/03/23 Arabella Fishman MA Financial Resource Worker 02/22/22 02/23/22 Richard Kam MD [address] [place] [address] Assigned Musculoskeletal Provider 08/14/22 Marisol Patel, [facility] [address] [place] [phone] Pharmacist Pharmacist 11/22/22 01/09/23 [place] [address] 482627 Assigned Neuroscience Provider 01/01/23 12/03/24 Rosemarie Mcdowell, RN Medical Insurance Claims Processor Diabetes Education 03/17/23 Ravi Brownlee MD [address] [place] [address] Assigned Heart and Vascular Provider 09/04/23 01/03/24 Mitra Kendall, CENTRAL OFFICE TECHNICIAN Lead Sister Superior Primary Care - CC 12/12/23 Lizet Mann PA-C [address] [place] [address] Assigned Cancer Care Provider 01/04/24 Ravi Brownlee MD [address] [place] [address] Assigned Pulmonology Provider 01/04/24 Nav Hughes MD [address] [facility] [address] [place], [place] 147275 Assigned Heart and Vascular Provider 01/04/24 05/05/24 Manuel Ahn, OD [address]341 [place] [address] Occupational Therapy Assist 01/05/24 Arabella Fishman MA Financial Resource Worker 01/06/24 03/19/24 Thalia Charles [facility] [address] [place], [place] [phone] Pharmacist Pharmacy 01/26/24 Gaurav Valenzuela APRN TRUST VAULT CLERK [address] [facility] 106 [place], [place] 709474 Assigned Sleep Provider 02/04/24 Manuel Ahn, OD [address] [place] [address] Assigned Surgical Provider 02/04/24 06/02/24 Debbie Mann MD [address] [facility] 200 [place], [place] [phone] Cardiovascular Disease 02/24/24 Hakeem Chacko MBBS [address]45 [place] [address] Assigned Rheumatology Provider 04/05/24 Debbie Mann MD 1600 [facility] 200 [facility] [place] [address] Assigned Heart and Vascular Provider 05/06/24 Timothy Tejada MD 6[address] [facility] [place] [place] [address] MD Ophthalmology 05/29/24 Timothy Tejada MD [address] [place] [address] Assigned Surgical Provider 06/03/24 Elsie Roberts APRN TRUST VAULT CLERK 1600 [facility] 101 [facility] [place] [address] Nurse Practitioner Pain Medicine 10/16/24 Cristy Morton MD 1440 [facility] [place] [address] Assigned Pediatric Specialist Provider 11/03/24 Georgie Anguiano PA-C [address] [address] Assigned Neuroscience Provider 12/04/24 documented as of this encounter
--- OUTSIDE RECORDS SUMMARY | 2024-12-06 00:26 | XMS_ITS | Encounter Summary ---
Author Organization English Address [address] [place] [address] Care Team Providers Care Invasive Cardiovascular Technologist Name Role Phone Va Glez MD Primary Care Provider [phone] Va Glez MD Unavailable Christy Campuzano PAUniqueC Unavailable [phone] Hans Cannon MD Unavailable [phone] Estella Hassan [facility] Unavailable Josh Cordero MD, Madhuri Unavailable [phone] John Webb MD Unavailable John Webb MD Unavailable Estella Hassan [facility] Unavailable [phone] Lindsay Carey OD Unavailable Richard Kam MD Unavailable Gaby Vila DO Unavailable Rosemarie Mcdowell RN Unavailable Mitra Kendall ELECTRIC METER TESTER Unavailable [phone] Lizet Mann PA-C Unavailable Ravi Brownlee MD Unavailable Nav Hughes MD Unavailable [phone] Manuel Ahn OD Unavailable Arabella Fishman MA Unavailable [phone] Thalia Charles [facility] Unavailable [phone] Gaurav Valenzuela PETROLOGIST COMPUTER ASSEMBLER Unavailable [phone] Manuel Ahn Kunal OD Unavailable [phone] Debbie Mann MD Unavailable [phone] Hakeem ChackoBS Unavailable Debbie Mann MD Unavailable [phone] Timothy Tejada MD Unavailable [phone] Timothy Tejada MD Unavailable [phone] Elsie Roberts PETROLOGIST COMPUTER ASSEMBLER Unavailable + Cristy Morton MD Unavailable [phone] Georgie Anguiano PA-C Unavailable [phone] Encounter Details Date Type Department Care Team (Late st Contact Info) Description 01/31/2024 MyC Medical Advice [address] [address] Nasreen Martell Social History Tobacco Use [...] re latives? Once a week 12/23/2023 Attends Orthodoxy Services Not on file 12/22 Active Member [...] Answer Date Recorded PHQ-2 Score 2 12/23/2023 [facility] - Occupational Stress [...] on file Legal Sex Male 3:[address] APPRAISER Gender Identity Not on file Sexual Orientation Not on file Occupation Industry Job Start Date Job End Date Not on file Not on file Not on file Not on file documented as of this encounter Plan of Treatment Upcoming Encounters Date Type Department Care Team (Late st Contact Info) Description 12/11/2024 2:10 PM CDT Therapy Visit [address] [phone] Shanta Cooper, PT 12/14/2024 11:20 AM CDT Office Visit [address] [address] Lizet Mann PA-C [address] [place] [address] 12/17/2024 2:10 PM CDT Office Visit [facility] [address] [place] [phone] Richard Kam MD [address] [place] [address] 12/19/2024 8:20 AM CDT Therapy Visit [address] [place] [phone] Shanta Cooper, PT 12/24/2024 5:00 PM CDT Therapy Visit [address] [phone] Pattie Casillas, PT 12/25/2024 10:20 AM CDT Therapy Visit [facility] [place] [address] [place] [phone] Shanta Cooper, PT 01/03/2025 1:00 PM CDT Office Visit [facility] [address] [place] [phone] Estella Hassan, [facility] [address] [place] [address] 01/03/2025 1:30 PM CDT Office Visit [facility] [address] [place] [phone] [place] [address] [place], [place] [phone] 01/08/2025 1:15 PM CDT Office Visit [facility] 2945 [facility] 200 [place] [address] Hakeem Chacko MBBS [address] [place], [place] [phone] Scheduled Procedures Name Priority Associated Diagnoses Date/Ti me INJECTION, EPIDURAL, TRANSFO RAMINAL APPROACH Cervical radiculitis RELEASE, CARPAL TUNNEL, ENDOSCOPIC Right carpal tunnel syndrome documented as of this encounter Goals Goal Patient Goal Type Associated Problems Recent Progress Patient-Stated? Author Health Maintenance Care Plan HP GENERAL PROBLEM 100%(10/29/19 10:17 AM CDT) No Mitra Kendall, ELECTRIC METER TESTER Note: Update on 05/25/22 Barriers: Currently without [...] for health insurance by looking in to [employer] and talking with a FRW. Completed 3. I will look for a new job and will access resources that the [employer] offers. . Sarted new job 4. Continue [...] will work with FRW in applying for [facility], county assistance and to see if I qualify for Medicaid. I need to ask spouse what her income is as it goes by household income. 2. I will contact [facility] to ask about medicare plans and if there are saving programs I qualify for by by calling [phone]. 3. I will see if I am eligible for unemployment after losing my job. I will call [phone] to ask for assistance with unemployment application. 4. I will apply for jobs. I will work with [employer] in finding a job (Empowerment.) 5. I will access [employer] and ask about financial resources (such as [...] accurate information and submit it to the [facility]. 3. I will update CCC Team at outreach. Health Maintenance Due or Overdue 12/16/2023 Patient expresses financial resource strain 12/13 Infection Onset Date Last Indicated Resolved Time Rule Out COVID-19 03/01/2024 03/01/2024 03/01/2024 1:[address] APPRAISER Rule Out COVID-19 07/18/2024 07/18/2024 07/19/2024 5:52 PM CDT Rule Out COVID-19 10/17/2024 10/17/2024 10/17/2024 11:23 PM CDT Rule Out C-difficile 11/04/2024 11/04/2024 025 1:55 AM CDT Assessment Noted Time PHQ-9 Depression Total Score: 9 12/23/19 24 12:36 PM CDT documented as of this encounter Care Teams Invasive Cardiovascular Technologist Relationship Specialty [place] [address] [place] [address] PCP - General Family Practice 07/11/14 [place] [address] [place], [place] [phone] Assigned PCP 12/16/11 Christy Campuzano PA-C [address] [place] [address] 304922 Referring Physician Family Medicine 04/22/20 Hans Cannon MD [address] [place] [address] Resident Pulmonary Disease 04/22/20 Estella Hassan, [facility] [place] [address] Pharmacist Pharmacist 05/26/20 Elaina Moreno MD [address] [place] [address] Cardiovascular & Thoracic Surgery 08/06/20 John Webb MD [address] [address] Cardiovascular Disease 08/25/21 John Webb MD [address] 616885 Cardiovascular Disease 08/25/21 Estella Hassan, [facility] [address] [place] [address] Assigned MTM Pharmacist 12/09/21 Lindsay Carey, OD [address] [facility] [place] [address] Ophthalmology 01/29/22 Richard Kam MD 500 [place], [place] 241425 Assigned Musculoskeletal Provider 08/14/22 [place] [address] 480[address] Assigned Neuroscience Provider 01/01/23 12/03/24 Rosemarie Mcdowell, RN Gallery Or Museum Curator Diabetes Education 03/17/23 Mitra Kendall, ELECTRIC METER TESTER Lead Business Account Specialist Primary Care - CC 12/12/23 Lizet Mann PA-C [address] [place], [place] [address] 783839 Assigned Cancer Care Provider 01/04/24 Ravi Brownlee MD [address] [place] [address] 103285 Assigned Pulmonology Provider 01/04/24 Nav Hughes MD [address] [facility] [address] 090475 Assigned Heart and Vascular Provider 01/04/24 05/05/24 Manuel Ahn OD [address] [facility] [address] 179972 Good Humor Vendor 01/05/24 Arabella Fishman MA Financial Resource Worker 01/06/24 03/19/24 Melvin Thalia [facility] [address] [place], [place] [phone] Pharmacist Pharmacy 01/26/24 Gaurav Valenzuela APRN COMPUTER ASSEMBLER 606 [facility] 106 [place] [address] Assigned Sleep Provider 02/04/24 Manuel Ahn OD 6341 [place] [address] Assigned Surgical Provider 02/04/24 06/02/24 Debbie Mann MD [address] [facility] 200 [place] [address] Cardiovascular Disease 02/24/24 Hakeem Chacko MBBS 2945 [place] [address] Assigned Rheumatology Provider 04/05/24 Debbie Mann MD [address] [facility] 200 [place] [address] Assigned Heart and Vascular Provider 05/06/24 Timothy Tejada MD 6341 [place] [address] Ophthalmology 05/29/24 Timothy Tejada MD 6341 [place] [address] Assigned Surgical Provider 06/03/24 Elsie Roberts APRN COMPUTER ASSEMBLER 1600 [facility] [address] [address] Nurse Practitioner Pain Medicine 10/16/24 Cristy Morton MD [address] [place] [address] [address]O [address] Assigned Pediatric Specialist Provider 11/03/24 Georgie Anguiano PA-C [address] [address] Assigned Neuroscience Provider 12/04/24 documented as of this encounter
--- OUTSIDE RECORDS SUMMARY | 2024-12-06 00:26 | XMS_ITS | Encounter Summary ---
Author Organization [place] Address [address] [place] [address] Care Team Providers Care Hoof And Shoe Inspector Name Role Phone Va Glez MD Primary Care Provider Va Glez MD Unavailable Christy CampuzanoC Unavailable [phone] Hans Cannon MD Unavailable Estella Hassan [facility] Unavailable Josh Cordero MD, Madhuri Unavailable [phone] John Webb MD Unavailable [phone] John Webb MD Unavailable Estella Hassan [facility] Unavailable Lindsay Carey OD Unavailable Richard Kam MD Unavailable Gaby Vila DO Unavailable [phone] Rosemarie Mcdowell RN Unavailable Mitra Kendall IMPREGNATION OPERATOR Unavailable [phone] Lizet Mann PA-C Unavailable Ravi Brownlee MD Unavailable [phone] Manuel Ahn OD Unavailable [phone] Thalia Charles [facility] Unavailable [phone] NicolasGaurav Ray BUYER PLANNER BUSINESS ANALYST Unavailable [phone] Debbie Mann MD Unavailable [phone] Hakeem Chacko MB Unavailable Debbie Mann MD Unavailable [phone] Timothy Tejada MD Unavailable [phone] Timothy Tejada MD Unavailable [phone] Elsie Roberts BUYER PLANNER BUSINESS ANALYST Unavailable + Cristy Morton MD Unavailable [phone] Georgie Anguiano PA-C Unavailable [phone] Reason for Visit * Reason Onset Date Comments Call Back 10/09/2024 pain Encounter Details Date Type Department Care Team (Late st Contact Info) Description 10/09/2024 Telephone [facility] [address] [place] [address] Richard Kam MD 500 [place] [address] Call Back (pain) Social History Tobacco Use Types Packs/Day Years [...] re latives? 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 Leobardo Rose CMA * Telephone Encounter - Sarina Elizondo - 10/09/2024 7:08 AM CDT Appointment Reason for Call: Patient is requesting to be scheduled sooner than next available Reason for visit: hand pain Is this a new or return visit: Return Have you been treated for this in the past? Yes Additional comments: Pt is wanting to get in sooner or if there is someone else he can see is having pain Could we send this information to you in [facility] or would you prefer to receive a phone call?: Patient would prefer a phone call Okay to leave a detailed message?: Yes at Cell number on file: Telephone Information: documented in this encounter Plan of Treatment Upcoming Encounters Date Type Department Care Team (Late st Contact Info) Description 12/11/2024 2:10 PM CDT Therapy Visit [address] [address] Shanta Cooper, PT 12/14/2024 11:20 AM CDT Office Visit [facility] [address] [place] [phone] Lizet Mann PA-C [address] [place] [address] 12/17/2024 2:10 PM CDT [facility] Visit [facility] [address] [place] [address] 4th [place] [phone] Richard Kam MD [address] [place] [address] 12/19/2024 8:20 AM CDT Therapy Visit [address] [address] Shanta Cooper, PT 12/24/2024 5:00 PM CDT Therapy Visit [address] [address] Pattie Casillas, PT 12/25/2024 10:20 AM CDT Therapy Visit [address] [phone] Shanta Cooper, PT 01/03/2025 1:00 PM CDT Office Visit [address] [phone] Estella Hassan, [facility] 30[address] [place] [address] 01/03/2025 1:30 PM CDT Office Visit [address] [phone] [place] [id number] [place] [address] 01/08/2025 1:15 PM CDT Office Visit [facility] 2945 [facility] 200 [place] [address] Hakeem Chacko MBBS 2945 [place] [address] Scheduled Procedures Name Priority Associated Diagnoses Date/Ti [...] for health insurance by looking in to [employer] and talking with a FRW. Completed 3. [...] by household income. 2. I will contact [employer] to ask about medicare plans and if there are saving programs I qualify for by by calling [phone]. 3. I will see if I am eligible for unemployment after losing my job. I will call [phone] to ask for assistance with unemployment application. 4. I will apply for jobs. I will work with [employer] in finding a job (Empowerment.) 5. I will access [employer] and ask about financial resources (such as [...] I will [facility]. 2. I will establish with Psychiatry. Planning to schedule with Ronnie. 3. I will meet with community moving worker Manjula Gresham. 4. I will look in to attending an IOP program. I will discuss with [facility] and number provided for [facility]al Access - [phone] to schedule assessment fr IOP program. 5. I will go to [facility] if I have concerning mental health symptoms. 6. I will access [facility] if needed by calling [phone]. 7. I will consider calling [facility] Adult [facility] intake at [phone]. documented as of this encounter Visit Diagnoses [...] [facility]. 3. I will update [facility] Team at outreach. Health Maintenance Due or [...] documented as of this encounter Care Teams Hoof And Shoe Inspector Relationship Specialty [place] [address] [place] [address] PCP - General Family Practice 07/11/14 [place] [address] [place] [address] Assigned PCP 12/16/11 Christy Campuzano PA-C [address] [place] [address] 484542 Referring Physician Family Medicine 04/22/20 Hans Cannon MD [address] [place] [address] Resident Pulmonary Disease 04/22/20 Estella Hassan, [facility] [place] [address] Pharmacist Pharmacist 05/26/20 Elaina Moreno MD [address] [place] [address] Cardiovascular & Thoracic Surgery 08/06/20 John Webb MD [address] [address] Cardiovascular Disease 08/25/21 John Webb MD [address] 364535 Cardiovascular Disease 08/25/21 Estella Hassan, [facility] [place], [place] 156076 Assigned MTM Pharmacist 12/09/21 Lindsay Carey OD [address] [facility] [place] [address] Ophthalmology 01/29/22 Richard Kam MD [address] [place] [address] 860515 Assigned Musculoskeletal Provider 08/14/22 [place] [address] [place] , [address] 699067 Assigned Neuroscience Provider 01/01/23 12/03/24 Rosemarie Mcdowell RN Keysmith Diabetes Education 03/17/23 Mitra Kendall, IMPREGNATION OPERATOR Lead Loading Shovel Oiler Primary Care - CC 12/12/23 Lizet Mann PA-C [address] [place] [address] Assigned Cancer Care Provider 01/04/24 Ravi Brownlee MD [address] [place] [address] 935185 Assigned Pulmonology Provider 01/04/24 Manuel Ahn OD [address] [facility] [place], [place] 288922 Diet Therapist 01/05/24 Thalia Charles, [facility] [address] [place], [place] [phone] Pharmacist Pharmacy 01/26/24 Gaurav Valenzuela APRN BUSINESS ANALYST 606 [facility] 106 [place] [address] Assigned Sleep Provider 02/04/24 Debbie Mann MD 1600 [facility] 200 [place] [address] Cardiovascular Disease 02/24/24 Hakeem Chacko MBBS 2945 [place], [place] [phone] Assigned Rheumatology Provider 04/05/24 Debbie Mann MD 1600 [facility] 200 [place] [address] Assigned Heart and Vascular Provider 05/06/24 Timothy Tejada MD 6341 [place] [phone] Ophthalmology 05/29/24 Timothy Tejada MD 6341 [place] [phone] Assigned Surgical Provider 06/03/24 Elsie Roberts APRN BUSINESS ANALYST 1600 [facility] 101 [place], [place] [phone] Nurse Practitioner Pain Medicine 10/16/24 Cristy Morton MD [address] [place] [address] SHANK[address] ROMO [address] Assigned Pediatric Specialist Provider 11/03/24 Georgie Anguiano PA-C [address] [address] Assigned Neuroscience Provider 12/04/24 documented as of this encounter
--- OUTSIDE RECORDS SUMMARY | 2024-12-06 00:26 | XMS_ITS | Encounter Summary ---
Author Organization [facility] Address [address] [place] [address] Care Team Providers Care Solar Crew Member Name Role Phone Va Glez MD Primary Care Provider Va Glez MD Unavailable Christy CampuzanoC Unavailable [phone] Hans Cannon MD Unavailable [phone] Estella Hassan [facility] Unavailable Josh Cordero MD, Madhuri Unavailable [phone] John Webb MD Unavailable [phone] John Webb MD Unavailable [phone] Estella Hassan [facility] Unavailable Lindsay Carey OD Unavailable Richard Kam MD Unavailable Gaby Vila DO Unavailable Rosemarie Mcdowell RN Unavailable Mitra Kendall EMPLOYMENT REPRESENTATIVE Unavailable [phone] Lizet Mann PA-C Unavailable Ravi Brownlee MD Unavailable Mnauel Ahn OD Unavailable [phone] [address] Charles [facility] Unavailable [phone] Nicolas Gaurav Bell PATENT PROSECUTION PARALEGAL TRAINING INTERN Unavailable [phone] Debbie Mann MD Unavailable [phone] Hakeem Chacko MB Unavailable Debbie Mann MD Unavailable [phone] Timothy Tejada MD Unavailable [phone] Timothy Tejada MD Unavailable [phone] Elsie Roberts PATENT PROSECUTION PARALEGAL TRAINING INTERN Unavailable + Cristy Morton MD Unavailable [phone] Georgie Anguiano PA-C Unavailable [phone] Reason for Visit * Reason Comments Medication Refill Encounter Details Date Type Department Care Team (Late st Contact Info) Description 10/10/2024 Refill [facility] [id number] [place] [phone] [place] [address] [place] [address] Medication Refill Social History Tobacco Use [...] re latives? 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 documented in this encounter Plan of Treatment Upcoming Encounters Date Type Department Care Team (Late st Contact Info) Description 12/11/2024 2:10 PM CDT Therapy Visit [address] [phone] Shnata Cooper, MOIZ 12/14/2024 11:20 AM CDT Office Visit [address] [phone] Lizet Mann PA-C [address] [place] [address] 12/17/2024 2:10 PM CDT Office Visit [facility] [address] 4th [place] [phone] Richard Kam MD [address] [place] [address]005 12/19/2024 8:20 AM CDT Therapy Visit [address] [place] [phone] Shanta Cooper, PT 12/24/2024 5:00 PM CDT Therapy Visit [address] 290 [place] [phone] Matthewjosue Anajanie Dumas, PT 12/25/2024 10:20 AM CDT Therapy Visit [facility] [address] [place] [address] 290 [place] [phone] Shanta Cooper, PT 01/03/2025 1:00 PM CDT Office Visit [facility] [address] [place] [phone] Estella Hassan, [facility] [address] [place] [address] 01/03/2025 1:30 PM CDT Office Visit [address] [phone] [place] [address] [place], [place] [phone] 01/08/2025 1:15 PM CDT Office Visit [facility] 2945 [facility] 200 [place] [phone] Hakeem Chacko MBBS [address] [place] [address] Scheduled Procedures Name Priority Associated Diagnoses Date/Ti me INJECTION, EPIDURAL, TRANSFO RAMINAL APPROACH Cervical radiculitis RELEASE, CARPAL TUNNEL, ENDOSCOPIC Right carpal tunnel syndrome documented as of this encounter Goals Goal Patient Goal Type Associated Problems Recent Progress Patient-Stated? Author Health Maintenance Care Plan HP GENERAL PROBLEM 100%(10/29/19 10:17 AM CDT) No Mitra Kendall, EMPLOYMENT REPRESENTATIVE Note: Update on 05/25/22 Barriers: Currently [...] for health insurance by looking in to [employer] and talking with a FRW. Completed 3. I will look for a new job and will access resources that the [employer] offers. . Sarted new job 4. Continue [...] programs I qualify for by by calling [phone]. 3. I will see if I am eligible for unemployment after losing my job. I will call [phone] to ask for assistance with unemployment application. 4. I will apply for jobs. I will work with [employer] [facility] in finding a job ([employer].) 5. I will access [employer] and ask about financial resources (such as [...] I will continue working with therapist at [facility]. 2. I will establish with Psychiatry. Planning to schedule with Ronnie. 3. I will meet with community steel layout worker Manjula Gresham. 4. I will look in to attending an IOP program. I will discuss with my [facility] therapist and number provided for [facility] Behavioral Access - [phone] to schedule assessment fr IOP program. 5. I will go to [facility] if I have concerning mental health symptoms. 6. I will access [facility] Crisis if needed by calling [phone]. 7. I will consider calling [facility] Adult Mental health intake at [phone]. documented as of this encounter Visit Diagnoses Diagnosis Vitamin D deficiency Unspecified vitamin D deficiency documented in this encounter Additional Health Concerns [...] documented as of this encounter Care Teams Solar Crew Member Relationship Specialty [place] [address] [place] [address] PCP - General Family Practice 07/11/14 [place] [address] [place] [address] Assigned PCP 12/16/11 Christy Campuzano PA-C [address] [place] [address] 279262 Referring Physician Family Medicine 04/22/20 Hans Cannon MD [address] [place] [address] [phone] Resident Pulmonary Disease 2/9/21 Estella Hassan, [facility] [address] [place] [address] Pharmacist Pharmacist 05/26/20 Elaina Moreno MD [address] [place] [address] 376505 Cardiovascular & Thoracic Surgery 08/06/20 John Webb MD [address] [id number] Cardiovascular Disease 08/25/21 John Webb MD [address] 566295 Cardiovascular Disease 08/25/21 Estella Hassan, [facility] [address] [place] [address] Assigned MTM Pharmacist 12/09/21 [place] [address] [place] [address] [place] [address] Ophthalmology 01/29/22 Richard Kam MD [address] [place] [address] Assigned Musculoskeletal Provider 08/14/22 [place] [address] [place], [address] [phone] Assigned Neuroscience Provider 01/01/23 12/03/24 Rosemarie Mcdowell RN Map Colorer Diabetes Education 03/17/23 Mitra Kendall, EMPLOYMENT REPRESENTATIVE Lead Client Account Manager Primary Care - CC 12/12/23 Lizet Mann PA-C [address] [place] [address] Assigned Cancer Care Provider 01/04/24 Ravi Brownlee MD 420 [facility] 276 [place], [place] 581475 Assigned Pulmonology Provider 01/04/24 Manuel Ahn OD 6341 [place] [address] Manager Strategy & Account 01/05/24 Thalia Charles [facility] [address] [place], [place] [phone] Pharmacist Pharmacy 01/26/24 Gaurav Valenzuela APRN TRAINING INTERN [address] [facility] [address] [place], [place] 498264 Assigned Sleep Provider 02/04/24 Debbie Mann MD [address] [facility] 200 [place] [address] Cardiovascular Disease 02/24/24 Hakeem Chacko MBBS 2945 [place] [address] Assigned Rheumatology Provider 04/05/24 Debbie Mann MD [address] [facility] 200 [place] [address] Assigned Heart and Vascular Provider 05/06/24 Timothy Tejada MD 6341 [facility] [place] [phone] Ophthalmology 05/29/24 Timothy Tejada MD 6[address] [facility] [place] [phone] Assigned Surgical Provider 06/03/24 Elsie Roberts APRN CNP [address] [place] [address] 101 [place] [address] Nurse Practitioner Pain Medicine 10/16/24 Cristy Morton MD [facility] [place] [address] Assigned Pediatric Specialist Provider 11/03/24 Georgie Anguiano PA-C [address] [address] Assigned Neuroscience Provider 12/04/24 documented as of this encounter
--- OUTSIDE RECORDS SUMMARY | 2024-12-06 00:26 | XMS_ITS | Encounter Summary ---
Author Organization [facility] Address [address] [place] [address] Care Team Providers Care Safety Patrol Officer Name Role Phone Va Glez MD Primary Care Provider [phone] Va Glez MD Unavailable Christy Campuzano PAUniqueC Unavailable [phone] Hans Cannon MD Unavailable Estella Hassan [facility] Unavailable Josh Cordero MD, Madhuri Unavailable [phone] John Webb MD Unavailable John Webb MD Unavailable Estella Hassan [facility] Unavailable Lindsay Carey OD Unavailable Richard Kam MD Unavailable Gaby Vila DO Unavailable Rosemarie Mcdowell RN Unavailable [phone] Mitra Kendall FITTING ROOM SUPERVISOR Unavailable [phone] iLzet Mann PA-C Unavailable Ravi Brownlee MD Unavailable Nav Hughes MD Unavailable [phone] Manuel Ahn OD Unavailable Arabella Fishman MA Unavailable [phone] Thalia Charles [facility] Unavailable Gaurav Valenzuela YARD SWITCH OPERATOR HEALTH AND SAFETY ADVISOR Unavailable Manuel Ahn OD Unavailable [phone] Debbie Mann MD Unavailable Hakeem ChackoBS Unavailable Debbie Mann MD Unavailable Timothy Tejada MD Unavailable Timothy Tejada MD Unavailable Elsie Roberts YARD SWITCH OPERATOR HEALTH AND SAFETY ADVISOR Unavailable + Cristy Morton MD Unavailable [phone] Georgie Anguiano PA-C Unavailable [phone] Encounter Details Date Type Department Care Team (Late st Contact Info) Description 02/11/2024 [facility] Medical Advice [address] [phone] Manuel Ahn, OD [address]241 [place] [address] Social History Tobacco Use Types [...] Answer Date Recorded PHQ-2 Score 4 02/10/2024 [facility] of Occupat ional [...] on file Legal 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 Stated he would see how things go with his eye and would call back if needed. I'm closing this message. Nasreen Castrejon Emt Driver CTION BRAZER documented in this encounter Plan of Treatment Upcoming Encounters Date Type Department Care Team (Late st Contact Info) Description 12/11/2024 2:10 PM CDT Therapy Visit [facility] [address] [phone] Shanta Cooper, PT 12/14/2024 11:20 AM CDT Office Visit [facility] [address] [place] [phone] Lizet Mann PA-C [address] [place], [place] [address] [place] [address] 12/17/2024 2:10 PM CDT Office Visit [facility] [address] 4th [place] [phone] Richard Kam MD 500 [place] [address] 12/19/2024 8:20 AM CDT Therapy Visit [address] [phone] Shanta Cooper, PT 12/24/2024 5:00 PM CDT Therapy Visit [address] [address] Pattie Casillas, PT 12/25/2024 10:20 AM CDT Therapy Visit [address] [phone] Shanta Cooper, PT 01/03/2025 1:00 PM CDT Office Visit [address] [phone] Estella Hassan, [facility] 30[address] [place] [address] 01/03/2025 1:30 PM CDT Office Visit [address] [phone] Va Glez MD [address] [place] [address] 01/08/2025 1:15 PM CDT Office Visit [facility] [address] [place] [phone] Hakeem Chacko MBBS [address] [place] [address] Scheduled Procedures Name Priority Associated Diagnoses Date/Ti [...] for health insurance by looking in to [employer] and talking with a FRW. Completed 3. I will look for a new job and will access resources that the [facility] offers. . Sarted new job 4. [...] work with FRW in applying for [facility] health care assistance and to see if I qualify for Medicaid. I need to ask spouse what her income is as it goes by household income. 2. I will contact [employer] to ask about medicare plans and if there are saving programs I qualify for by by calling [phone]. 3. I will see if I am eligible for unemployment after losing my job. I will call [phone] to ask for assistance with unemployment application. 4. I will apply for jobs. I will work with [employer] in finding a job ([employer].) 5. I will access [employer] and ask about financial resources (such as [...] accurate information and submit it to the [facility]. 3. I will update [facility] Team at outreach. Health Maintenance Due or Overdue 12/16/2023 Patient expresses financial resource strain 12/13 Infection Onset Date Last Indicated Resolved Time Rule Out COVID-19 03/01/2024 03/01/2024 03/01/2024 1:11 PM INDUCTION BRAZER Rule Out COVID-19 07/18/2024 07/18/2024 07/19/2024 5:52 PM CDT Rule Out COVID-19 10/17/2024 10/17/2024 10/17/2024 11:23 PM CDT Rule Out C-difficile 11/04/2024 11/04/2024 025 1:55 AM CDT Assessment Noted Time PHQ-9 Depression Total Score: 11 024 10:39 AM INDUCTION BRAZER documented as of this encounter Care Teams Safety Patrol Officer Relationship Specialty [place] [address] [place] [address] PCP - General Family Practice 07/11/14 [place] [address] [place] [address] Assigned PCP 12/16/11 Christy Campuzano PA-C [address] [place] [address] 579292 Referring Physician Family Medicine 04/22/20 Hans Cannon MD [address] [place] [address] 067082 Resident Pulmonary Disease 04/22/20 Estella Hassan, [facility] [address] [place], [place] [address] Pharmacist Pharmacist 05/26/20 Elaina Moreno MD 909 [place] [address] Cardiovascular & Thoracic Surgery 08/06/20 John Webb MD [address] [place] [address] Cardiovascular Disease 08/25/21 John Webb MD [address] [place] [address] Cardiovascular Disease 08/25/21 [facility] 30[address] [place] [address] Assigned MTM Pharmacist 12/09/21 Lindsay Carey OD [address] [facility] [place] [address] Ophthalmology 01/29/22 Richard Kam MD 500 [place] [address] Assigned Musculoskeletal Provider 08/14/22 [place] [address] [place] , [address] [address] Assigned Neuroscience Provider 01/01/23 12/03/24 Rosemarie Mcdowell, RN Exhibits Coordinator Diabetes Education 03/17/23 Mitra Kendall, FITTING ROOM SUPERVISOR Lead Brim Cutter Primary Care - CC 12/12/23 Lizet Mann PA-C [address] [place] [address] Assigned Cancer Care Provider 01/04/24 Ravi Brownlee MD 420 [facility] 276 [place] [address] Assigned Pulmonology Provider 01/04/24 Nav Hughes MD 6405 [facility] [address] [place], [place] 987455 Assigned Heart and Vascular Provider 01/04/24 05/05/24 Manuel Ahn, OD 6341 [place], [place] 368552 Cad Application Support Specialist 01/05/24 Arabella [place] MA Financial Resource Worker 01/06/24 03/19/24 Thalia Charles [facility] [address] [place], [place] [phone] Pharmacist Pharmacy 01/26/24 Gaurav Valenzuela APRN HEALTH AND SAFETY ADVISOR 606 [facility] 106 [place] [address] Assigned Sleep Provider 02/04/24 Manuel Ahn, OD 6341 [place], [place] 597372 Assigned Surgical Provider 02/04/24 06/02/24 Debbie Mann MD 1600 [facility] 200 [place], [place] [phone] Cardiovascular Disease 02/24/24 Hakeem Chacko MBBS 2945 [place], [place] 53748[address] Assigned Rheumatology Provider 04/05/24 Debbie Mann MD 1600 [facility] 200 [place], [place] 61180109 Assigned Heart and Vascular Provider 05/06/24 Timothy Tejada MD 6341 [facility] [place] [phone] MD Ophthalmology 05/29/24 Timothy Tejada MD 6[address] [facility] [place] [phone] Assigned Surgical Provider 06/03/24 Elsie Roberts APRN CNP 1600 [facility] 101 [place] [address] Nurse Practitioner Pain Medicine 10/16/24 Cristy Morton MD [address] [place] [address] [address]O [id number] Assigned Pediatric Specialist Provider 11/03/24 Georgie Anguiano PA-C 6545 [facility] [address] [id number] Assigned Neuroscience Provider 12/04/24 documented as of this encounter
--- OUTSIDE RECORDS SUMMARY | 2024-12-06 00:26 | XMS_ITS | Encounter Summary ---
Author Organization [facility] Address [address] [place] [address] Care Team Providers Care Jack Spinner Name Role Phone Va Glez MD Primary Care Provider Va Glez MD Unavailable Kerry Bernal RN Unavailable Ravi Barillas DPM Unavailable [phone] Christy Campuzano PA-C Unavailable Hans Cannon MD Unavailable [phone] Mitra Kendall WING COVERER Unavailable [phone] Burt Jovel MD Unavailable Estella Hassan [facility] Unavailable Reji Chavez MD Unavailable [phone] Josh Cordero MD, Madhuri Unavailable [phone] Josh Coredro MD, Madhuri Unavailable [phone] Kelsi Hassan MD Unavailable [phone] John Webb MD Unavailable John Webb MD Unavailable Estella Hassan [facility] Unavailable Nav Hughes MD Unavailable [phone] Cassandra Mendoza MD Unavailable Estella Hassan RPH Unavailable Mitra Kendall WING COVERER Unavailable Aurelio Lindsay Kenzie OD Unavailable Ravi Brownlee MD Unavailable Kye Arabella MA Unavailable [phone] Richard Kam MD Unavailable Marisol Patel RPH Unavailable Gaby Vila DO Unavailable Rosemarie Mcdowell RN Unavailable Ravi Brownlee MD Unavailable Mitra Kendall WING COVERER Unavailable Lizet MannC Unavailable Ravi Brownlee MD Unavailable Nav Hughes MD Unavailable [phone] Manuel Ahn OD Unavailable Kye Arabella MA Unavailable [phone] Thalia Charles RP Unavailable Gaurav Valenzuela APRN TRENCH PIPE LAYER Unavailable Manuel Ahn OD Unavailable Debbie Mann MD Unavailable Hakeem Chacko Unavailable Debbie Mann MD Unavailable Timothy Tejada MD Unavailable Timothy Tejada MD Unavailable Elsie Roberts APRN TRENCH PIPE LAYER Unavailable + Cristy Morton MD Unavailable Georgie Anguiano PA-C Unavailable [phone] Encounter Details Date Type Department Care Team (Late st Contact Info) Description 07/10/2020 MyC Medical Advice [facility] Cancer [address] [address] Elaina Moreno MD [address] [place] [address] Social History Tobacco Use Types Packs/Day [...] Answer Date Recorded PHQ-2 Score 0 06/05/2020 [facility] [place] of Occupat ional Health - Occupational Stress [...] file 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 [place] [address] 12/17/2024 2:10 PM CDT Office Visit [facility] Orthopedic [facility] [address] [facility] 4th [place] [address] Richard Kam MD [address] [place] [address] 12/19/2024 8:20 AM CDT Therapy Visit [address] [address] Shanta Cooper, PT 12/24/2024 5:00 PM CDT Therapy Visit [address] [address] Pattie Casillas, PT 12/25/2024 10:20 AM CDT Therapy Visit [address] [address] Shanta Cooper, PT 01/03/2025 1:00 PM CDT Office Visit [address] [phone] Estella Hassan, [facility] [address] [place] [address] 01/03/2025 1:30 PM CDT Office Visit [address] [phone] Va Glez MD [address] [place] [id number] 01/08/2025 1:15 PM CDT Office Visit [address] [phone] Hakeem Chacko MBBS [address] [place] [address] Scheduled Procedures Name Priority Associated Diagnoses Date/Ti me INJECTION, EPIDURAL, TRANSFO RAMINAL APPROACH Cervical radiculitis RELEASE, CARPAL TUNNEL, ENDOSCOPIC Right carpal tunnel syndrome documented as of this encounter Visit Diagnoses Not on filedocumented in this encounter Additional Health Concerns Infection Onset Date Last Indicated Resolved Time Rule Out COVID-19 06/22/2021 06/22/2021 06/23/2021 8:58 PM CDT Rule Out COVID-19 01/22/2022 01/22/2022 01/24/2022 1:05 PM CONTRACT MAIL CARRIER Rule Out COVID-19 01/25/2022 01/25/2022 01/25/2022 5:21 AM CONTRACT MAIL CARRIER Influenza 01/25/2022 01/25/2022 02/01/2022 11:4 1 PM CONTRACT MAIL CARRIER Rule Out COVID-19 07/29/2022 07/29/2022 07/31/2022 11:17 AM CDT Rule Out COVID-19 03/23/2023 03/23/2023 03/23/2023 6:30 PM CONTRACT MAIL CARRIER COVID-19 03/23/2023 03/23/2023 04/13/2023 11:4 0 PM CONTRACT MAIL CARRIER Rule Out COVID-19 06/05/2023 06/05/2023 06/05/2023 5:53 PM CDT Rule Out COVID-19 11/06/2023 11/06/2023 11/06/2023 11:05 PM CDT Rule Out COVID-19 11/20/2023 11/20/2023 11/20/2023 6:43 PM CDT Rule Out COVID-19 12/27/2023 12/27/2023 12/29/2023 1:37 PM CDT Rule Out COVID-19 03/01/2024 03/01/2024 03/01/2024 1:11 PM CONTRACT MAIL CARRIER Rule Out COVID-19 07/18/2024 07/18/2024 07/19/2024 5:52 PM CDT Rule Out COVID-19 10/17/2024 10/17/2024 10/17/2024 11:23 PM CDT Rule Out C-difficile 11/04/2024 11/04/2024 025 1:55 AM CDT Assessment Noted Time PHQ-9 Depression Total Score: 2 06/06/19 21 12:47 PM CDT documented as of this encounter Care Teams Jack Spinner Relationship Specialty [place] [address] [place] [address] PCP - General Family Practice 07/11/14 [place] [address] [place] [address] Assigned PCP 12/16/11 Kerry Bernal RN Personal Advocate & Liaison (PAL) 01/08/19 07/10/23 Ravi Barillas DPM [address] [facility] [address] [place] [address] Assigned Musculoskeletal Provider 03/23/20 10/30/21 Christy Campuzano PA-C [address] [place] [address] Referring Physician Family Medicine 04/22/20 Hans Cannon MD [address] [place] [address] Resident Pulmonary Disease 04/22/20 Mitra Kendall, WING COVERER Lead Vocational Childcare Teacher Primary Care - CC 01/08/1901/12 Burt Jovel MD Internal Medicine 05/08/20 12/13/23 Estella Hassan, [facility] [address] [place] [address] Pharmacist Pharmacist 05/26/20 Reji Chavez MD [address] [place] [address] Assigned Heart and Vascular Provider 05/18/20 10/30/21 Elaina Moreno MD [address] [place], [place] [address] Assigned Surgical Provider 05/18/20 11/19/22 Elaina Moreno MD [address] [place] [address] 638515 Cardiovascular & Thoracic Surgery 08/06/20 Kelsi Hassan MD [address] [place] [address] Assigned Pulmonology Provider 06/28/21 02/05/22 John Webb MD [address] [address] Cardiovascular Disease 08/25/21 John Webb MD [address] 736245 Cardiovascular Disease 08/25/21 Estella Hassan, [facility] [address] [place] [address] Assigned MTM Pharmacist 09/05/21 Nav Hughes MD [address] [place] [address] Assigned Heart and Vascular Provider 10/31/21 09/03/23 Cassandra Mendoza MD ORTHOPAEDIC SURGERY [address] [address] Assigned Musculoskeletal Provider 10/31/21 08/13/22 Estella Hassan, [facility] [address] [place] [address] Assigned MTM Pharmacist 12/09/21 Mitra Kendall, [facility] Lead Vocational Childcare Teacher Primary Care - CC 01/26/2210/28 Lindsay Carey OD 3[address] [facility] [place] [place] [address] Ophthalmology 01/29/22 Ravi Brownlee MD 420 [facility] 276 [place] [address] Assigned Pulmonology Provider 02/06/22 09/03/23 Arabella Fishman MA Financial Resource Worker 02/22/22 02/23/22 Richard Kam MD 500 [place] [address] Assigned Musculoskeletal Provider 08/14/22 Marisol Patel, [facility] [address] [place] [address] Pharmacist Pharmacist 11/22/22 01/09/23 [place] [address] [place], [address] 232507 Assigned Neuroscience Provider 01/01/23 12/03/24 Rosemarie Mcdowell, RN Supervisor Residential Diabetes Education 03/17/23 Ravi Brownlee MD [address] [place] [address] 673505 Assigned Heart and Vascular Provider 09/04/23 01/03/24 Mitra Kendall, WING COVERER Lead Vocational Childcare Teacher Primary Care - CC 12/12/23 Lizet Mann PA-C [address] [place] [address] Assigned Cancer Care Provider 01/04/24 Ravi Brownlee MD [address] [place] [address] Assigned Pulmonology Provider 01/04/24 Nav Hughes MD [address] [place] [address] [address] [address] Assigned Heart and Vascular Provider 01/04/24 05/05/24 Manuel Ahn OD [address] [facility] [place] [place] [address] Research Biologist 01/05/24 Arabella Fishman MA Financial Resource Worker 01/06/24 03/19/24 Thalia Charles [facility] [address] [place] [address] Pharmacist Pharmacy 01/26/24 Gaurav Valenzuela APRN TRENCH PIPE LAYER 606 [facility] 106 [place] [address] Assigned Sleep Provider 02/04/24 Manuel Ahn OD 6341 [place], [place] 189152 Assigned Surgical Provider 02/04/24 06/02/24 Debbie Mann MD 1600 [facility] 200 [place] [address] Cardiovascular Disease 02/24/24 Hakeem Chacko MBBS 2945 [place] [address] Assigned Rheumatology Provider 04/05/24 Debbie Mann MD 1600 [facility] 200 [place] [address] Assigned Heart and Vascular Provider 05/06/24 Timothy Tejada MD 6341 [place] [address] Ophthalmology 05/29/24 Timothy Tejada MD [address] [place] [address] Assigned Surgical Provider 06/03/24 Elsie Roberts APRN TRENCH PIPE LAYER 1600 [facility] [place] [address] [address] Nurse Practitioner Pain Medicine 10/16/24 Cristy Morton MD 1440 [facility] [place] [address] Assigned Pediatric Specialist Provider 11/03/24 Georgie Anguiano PA-C [address] [address] Assigned Neuroscience Provider 12/04/24 documented as of this encounter
--- OUTSIDE RECORDS SUMMARY | 2024-12-06 00:27 | XMS_ITS | Encounter Summary ---
Author Organization [facility] Address [address] [place] [address] Care Team Providers Care Veterinary Science Teacher Name Role Phone Va Glez MD Primary Care Provider Va Glez MD Unavailable Kerry Bernal RN Unavailable Ravi Barillas DPM Unavailable [phone] Christy Campuzano PA-C Unavailable [phone] Hans Cannon MD Unavailable Mitra Kendall INTEGRATED PROGRAM TEACHER Unavailable Burt Jovel MD Unavailable [phone] Estella Hassan [facility] Unavailable Reji Chavez MD Unavailable Josh Cordero MD, Madhuri Unavailable [phone] Josh Cordero MD, Madhuri Unavailable [phone] Kelsi Hassan MD Unavailable [phone] John Webb MD Unavailable [phone] John Webb MD Unavailable Estella Hassan [facility] Unavailable [phone] Nav Hughes MD Unavailable [phone] Cassandra Mendoza MD Unavailable Estella Hassan RPH Unavailable Mitra Kendall INTEGRATED PROGRAM TEACHER Unavailable Aurelio Lindsay Kenzie OD Unavailable Ravi Brownlee MD Unavailable Kye Arabella MA Unavailable [phone] Richard Kam MD Unavailable Marisol Patel RPH Unavailable Gaby Vila DO Unavailable Rosemarie Mcdowell RN Unavailable Ravi Brownlee MD Unavailable Mitra Kendall INTEGRATED PROGRAM TEACHER Unavailable Lizet MannC Unavailable Ravi Brownlee MD Unavailable Nav Hughes MD Unavailable [phone] Manuel Ahn OD Unavailable Kye Arabella MA Unavailable [phone] Thalia Charles RP Unavailable Gaurav Valenzuela APRN OYSTER TONGER Unavailable Manuel Ahn OD Unavailable Debbie Mann MD Unavailable Hakeem Chacko Unavailable Debbie Mann MD Unavailable Timothy Tejada MD Unavailable Timothy Tejada MD Unavailable Elsie Roberts APRN OYSTER TONGER Unavailable + Cristy Morton MD Unavailable Georgie Anguiano PA-C Unavailable Encounter Details Date Type Department Care Team (Late st Contact Info) Description 07/09/2020 MyC Medical Advice [address] [address] Estella Hassan, [facility] [address] [place] [address] Social History Tobacco Use Types Packs/Day Years [...] Score 0 06/05/2020 [facility] [place] of Occupat ional Health - Occupational Stress [...] on file 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 Gender Identity Not on file Sexual [...] Description 12/11/2024 2:10 PM CDT Therapy Visit [facility] Rehabilitation Services [address] [place] [phone] Shanta Cooper PT 12/14/2024 11:20 AM CDT Office Visit [facility] [address] [facility] [address] Lizet Mann PA-C [address] [facility] [place] [address] 12/17/2024 2:10 PM CDT Office Visit [facility] Orthopedic [facility] 9[address] [facility] 4th [place] [address] Richard Kam MD [address] [place] [address] 12/19/2024 8:20 AM CDT Therapy Visit [address] [address] Shanta Cooper, PT 12/24/2024 5:00 PM CDT Therapy Visit [address] [address] Pattie Casillas, PT 12/25/2024 10:20 AM CDT Therapy Visit [address] [address] Shanta Cooper, PT 01/03/2025 1:00 PM CDT Office Visit [address] [phone] Estella Hassan, [facility] [address] [place] [address] 01/03/2025 1:30 PM CDT Office Visit [address] [address] Va Glez MD [address] [place] [address] [id number] 01/08/2025 1:15 PM CDT Office Visit [address] [phone] Hakeem Chacko MBBS [address] [place] [address] Scheduled Procedures Name Priority Associated Diagnoses Date/Ti me INJECTION, EPIDURAL, TRANSFO RAMINAL APPROACH Cervical radiculitis RELEASE, CARPAL TUNNEL, ENDOSCOPIC Right carpal tunnel syndrome documented as of this encounter Visit Diagnoses Not on filedocumented in this encounter Additional Health Concerns Infection Onset Date Last Indicated Resolved Time Rule Out COVID-19 06/22/2021 06/22/2021 06/23/2021 8:58 PM CDT Rule Out COVID-19 01/22/2022 01/22/2022 01/24/2022 1:05 PM ARABIC PROFESSOR Rule Out COVID-19 01/25/2022 01/25/2022 01/25/2022 5:21 AM ARABIC PROFESSOR Influenza 01/25/2022 01/25/2022 02/01/2022 11:4 1 PM ARABIC PROFESSOR Rule Out COVID-19 07/29/2022 07/29/2022 07/31/2022 11:17 AM CDT Rule Out COVID-19 03/23/2023 03/23/2023 03/23/2023 6:30 PM ARABIC PROFESSOR COVID-19 03/23/2023 03/23/2023 04/13/2023 11:4 0 PM ARABIC PROFESSOR Rule Out COVID-19 06/05/2023 06/05/2023 06/05/2023 5:53 PM CDT Rule Out COVID-19 11/06/2023 11/06/2023 11/06/2023 11:05 PM CDT Rule Out COVID-19 11/20/2023 11/20/2023 11/20/2023 6:43 PM CDT Rule Out COVID-19 12/27/2023 12/27/2023 12/29/2023 1:37 PM CDT Rule Out COVID-19 03/01/2024 03/01/2024 03/01/2024 1:11 PM ARABIC PROFESSOR Rule Out COVID-19 07/18/2024 07/18/2024 07/19/2024 5:52 PM CDT Rule Out COVID-19 10/17/2024 10/17/2024 10/17/2024 11:23 PM CDT Rule Out C-difficile 11/04/2024 11/04/2024 025 1:55 AM CDT Assessment Noted Time PHQ-9 Depression Total Score: 2 06/06/19 21 12:47 PM CDT documented as of this encounter Care Teams Veterinary Science Teacher Relationship Specialty [place] [address] [place] [address] PCP - General Family Practice 07/11/14 [place] [address] [place] [address] Assigned PCP 12/16/11 Kerry Bernal RN Personal Advocate & Liaison (PAL) 01/08/19 07/10/23 Ravi Barillas DPM [id number] [place] [address] 300 [place] [address] Assigned Musculoskeletal Provider 03/23/20 10/30/21 Christy Campuzano PA-C [address] [place] [address] 074272 Referring Physician Family Medicine 04/22/20 Hans Cannon MD [address] [place] [address] Resident Pulmonary Disease 04/22/20 Mitra Kendall, INTEGRATED PROGRAM TEACHER Lead Marine Electrician Helper Primary Care - CC 01/08/1901/12 Burt Jovel MD Internal Medicine 05/08/20 12/13/23 Estella Hassan, [facility] [address] [place] [address] Pharmacist Pharmacist 05/26/20 Reji Chavez MD [address] [facility] [address] [place] [address] Assigned Heart and Vascular Provider 05/18/20 10/30/21 Elaina Moreno MD [address] [place] [address] Assigned Surgical Provider 05/18/20 11/19/22 Elaina Moreno MD [address] [place] [address] Cardiovascular & Thoracic Surgery 08/06/20 Kelsi Hassan MD [address] [place] [address] Assigned Pulmonology Provider 06/28/21 02/05/22 John Webb MD [address] [address] Cardiovascular Disease 08/25/21 John Webb MD [address] 395975 Cardiovascular Disease 08/25/21 Estella Hassan, [facility] [address] [place] [address] Assigned MTM Pharmacist 09/05/21 Nav Hughes MD [address] [place] [address] Assigned Heart and Vascular Provider 10/31/21 09/03/23 Cassandra Mendoza MD ORTHOPAEDIC SURGERY [address] [address] Assigned Musculoskeletal Provider 10/31/21 08/13/22 Estella Hassan, [facility] [address] [place] [address] Assigned MTM Pharmacist 12/09/21 Mitra Kendall, [facility] Lead Marine Electrician Helper Primary Care - CC 01/26/2210/28 Lindsay Carey OD [address] [facility] [place] [address] Ophthalmology 01/29/22 Ravi Brownlee MD 420 [facility] 276 [place] [address] Assigned Pulmonology Provider 02/06/22 09/03/23 Arabella Fishman MA Financial Resource Worker 02/22/22 02/23/22 Richard Kam MD 500 [place] [address] Assigned Musculoskeletal Provider 08/14/22 Marisol Patel, [facility] [address] [facility] [place] [place] [address] Pharmacist Pharmacist 11/22/22 01/09/23 [place] [address] [place], [address] [address] Assigned Neuroscience Provider 01/01/23 12/03/24 Rosemarie Mcdowell, RN Organizational Psychologist Diabetes Education 03/17/23 Ravi Brownlee MD [address] [place] [address] 598605 Assigned Heart and Vascular Provider 09/04/23 01/03/24 Mitra Kendall, INTEGRATED PROGRAM TEACHER Lead Marine Electrician Helper Primary Care - CC 12/12/23 Lizet Mann PA-C [address] [place], [place] [address] [address] Assigned Cancer Care Provider 01/04/24 Ravi Brownlee MD [address] [place] [address] Assigned Pulmonology Provider 01/04/24 Nav Hughes MD [address] [place] [address] [address] [address] Assigned Heart and Vascular Provider 01/04/24 05/05/24 Manuel Ahn OD 6341 [facility] [address] [address] Carton Catcher 01/05/24 Arbaella Fishman MA Financial Resource Worker 01/06/24 03/19/24 Thalia Charles [facility] [address] [place] [address] Pharmacist Pharmacy 01/26/24 Gaurav Valenzuela APRN OYSTER TONGER [address] [facility] 106 [place], [place] 664234 Assigned Sleep Provider 02/04/24 Manuel Ahn OD 6341 [place], [place] 664812 Assigned Surgical Provider 02/04/24 06/02/24 Debbie Mann MD 1600 [facility] 200 [place] [address] Cardiovascular Disease 02/24/24 Hakeem Chacko MBBS 2945 [place] [address] Assigned Rheumatology Provider 04/05/24 Debbie Mann MD 1600 [facility] 200 [place] [address] Assigned Heart and Vascular Provider 05/06/24 Timothy Tejada MD 6341 [place] [phone] Ophthalmology 05/29/24 Timothy Tejada MD [address]341 [place] [address] Assigned Surgical Provider 06/03/24 Elsie Roberts APRN OYSTER TONGER 1600 [facility] [place] [address] [address] Nurse Practitioner Pain Medicine 10/16/24 Cristy Morton MD 1440 [facility] [address] [address] Assigned Pediatric Specialist Provider 11/03/24 Georgie Anguiano PA-C [address] [address] Assigned Neuroscience Provider 12/04/24 documented as of this encounter
--- OUTSIDE RECORDS SUMMARY | 2024-12-06 00:27 | XMS_ITS | Encounter Summary ---
Author Organization [place] Address [address] [place] [address] Care Team Providers Care Sourcing Engineer Name Role Phone Va Glez MD Primary Care Provider Va Glez MD Unavailable Kerry Bernal RN Unavailable [phone] Christy Campuzano PA-C Unavailable Hans Cannon MD Unavailable Burt Jovel MD Unavailable [phone] Estella Hassan [facility] Unavailable Josh Cordero MD, Elaina Unavailable [phone] Josh Cordero MD, Elaina Unavailable [phone] John Webb MD Unavailable [phone] John Webb MD Unavailable Nav Hughes MD Unavailable Cassandra Mendoza MD Unavailable [phone] Estella Hassan [facility] Unavailable [phone] Mitra Kendall INSTRUMENT ASSEMBLER Unavailable Lindsay Carey OD Unavailable Ravi Brownlee MD Unavailable [phone] Arabella Fishman MA Unavailable [phone] Richard Kam MD Unavailable Marisol Patel RPH Unavailable Gaby Vila DO Unavailable Rosemarie Mcdowell RN Unavailable Ravi Brownlee MD Unavailable Mitra Kendall INSTRUMENT ASSEMBLER Unavailable Lizet Mann PA-C Unavailable Ravi Brownlee MD Unavailable Nav Hughes MD Unavailable [phone] Manuel Ahn OD Unavailable Arabella Fishman MA Unavailable [phone] Thalia Charles RP Unavailable Gaurav Valenzuela MANAGER CLIENT RN ELIGIBILITY Unavailable Manuel Ahn OD Unavailable Debbie Mann MD Unavailable Hakeem Chacko Unavailable Debbie Mann MD Unavailable Timothy Tejada MD Unavailable Timothy Tejada MD Unavailable Elsie Roberts MANAGER CLIENT RN ELIGIBILITY Unavailable + Cristy Morton MD Unavailable Georgie Anguiano PA-C Unavailable Encounter Details Date Type Department Care Team (Late st Contact Info) Description 02/10/[address] [phone] Ravi Brownlee MD 420 [facility] [address] [place] [address] Social History Tobacco Use Types [...] Answer Date Recorded PHQ-2 Score 1 01/28/2022 [facility] [place] of Occupat ional Health - Occupational Stress [...] place to sleep or slept in a fpc (including now)? No 02/02/2022 Sex and Gender Information Value Date Recorded Sex Assigned at Not on file Legal Sex Male 3:29 AM MERCHANDISING CONSULTANT Gender Identity Not on file Sexual Orientation Not on file Occupation Industry Job Start Date Job End Date Not on file Not on file Not on file Not on file COVID-19 Exposure Response Date Recorded In the last 10 days, have yo u been in contact with someone who was confirmed or suspected to have Coronavirus/COVID-19? No / Unsure 02/05/2022 3:31 PM MERCHANDISING CONSULTANT documented as of this encounter Plan of Treatment Upcoming Encounters Date Type Department Care Team (Late st Contact Info) Description 12/11/2024 2:10 PM CDT Therapy Visit [facility] [address] [place] [phone] Shanta Cooper, MOIZ 12/14/2024 11:20 AM CDT Office Visit [facility] [address] [place] [phone] Lizet Mann PA-C [id number] [place], [place] [address]E [facility] [place] [address] 12/17/2024 2:10 PM CDT Office Visit [facility] Orthopedic [facility] [address] [facility] 4th [place] [phone] Richard Kam MD [address] [place] [address] 12/19/2024 8:20 AM CDT Therapy Visit [address] [address] Shanta Cooper, PT 12/24/2024 5:00 PM CDT Therapy Visit [address] [address] Pattie Casillas, PT 12/25/2024 10:20 AM CDT Therapy Visit [address] [address] Shanta Cooper, PT 01/03/2025 1:00 PM CDT Office Visit [address] [phone] Estella Hassan, [facility] 30[address] [place] [address] 01/03/2025 1:30 PM CDT Office Visit [address] [phone] Va Glez MD [address] [place] [address] [phone] 01/08/2025 1:15 PM CDT Office Visit [address] 200 [place] [phone] Hakeem Chacko MBBS [address] [place] [address] Scheduled Procedures Name Priority Associated Diagnoses Date/Ti [...] Out COVID-19 03/23/2023 03/23/2023 03/23/2023 6:30 PM MERCHANDISING CONSULTANT COVID-19 03/23/2023 03/23/2023 04/13/2023 11:4 0 PM MERCHANDISING CONSULTANT Rule Out COVID-19 06/05/2023 06/05/2023 06/05/2023 5:53 PM CDT Rule Out COVID-19 11/06/2023 11/06/2023 11/06/2023 11:05 PM CDT Rule Out COVID-19 11/20/2023 11/20/2023 11/20/2023 6:43 PM CDT Rule Out COVID-19 12/27/2023 12/27/2023 12/29/2023 1:37 PM CDT Rule Out COVID-19 03/01/2024 03/01/2024 03/01/2024 1:11 PM MERCHANDISING CONSULTANT Rule Out COVID-19 07/18/2024 07/18/2024 07/19/2024 5:52 PM CDT Rule Out COVID-19 10/17/2024 10/17/2024 10/17/2024 11:23 PM CDT Rule Out C-difficile 11/04/2024 11/04/2024 025 1:55 AM CDT Assessment Noted Time PHQ-9 Depression Total Score: 4 01/29/20 22 3:29 PM MERCHANDISING CONSULTANT documented as of this encounter Care Teams Sourcing Engineer Relationship Specialty [place] [address] [place] [address] PCP - General Family Practice 07/11/14 [place] [address] [place] [address] Assigned PCP 12/16/11 Kerry Bernal RN Personal Advocate & Liaison (PAL) 01/08/19 07/10/23 Christy Campuzano PA-C [address] [place] [address] 627162 Referring Physician Family Medicine 04/22/20 Hans Cannon MD [address] [place] [address] Resident Pulmonary Disease 04/22/20 Burt Jovel MD [address] [place] [address] 212642 Internal Medicine 05/08/20 12/13/23 Estella Hassan, [facility] [place] [address] Pharmacist Pharmacist 05/26/20 Elaina Moreno MD [address] [place] [address] Assigned Surgical Provider 05/18/20 11/19/22 Elaina Moreno MD [address] [place] [address] Cardiovascular & Thoracic Surgery 08/06/20 John Webb MD [address] [place] [address] Cardiovascular Disease 08/25/21 John Webb MD [address] [place] [address] Cardiovascular Disease 08/25/21 Nav Hughes MD [address] [place] [address] Assigned Heart and Vascular Provider 10/31/21 09/03/23 Cassandra Mendoza MD ORTHOPAEDIC SURGERY [facility] [address] [address] Assigned Musculoskeletal Provider 10/31/21 08/13/22 Estella Hassan, [facility] [address] [place] [address] Assigned MTM Pharmacist 12/09/21 Mitra Kendall, INSTRUMENT ASSEMBLER Lead Apple Checker Primary Care - CC 01/26/2210/28 Lindsay Carey OD 3305 [facility] [place] [address] Ophthalmology 01/29/22 Ravi Brownlee MD [address] [place] [address] 189425 Assigned Pulmonology Provider 02/06/22 09/03/23 Arabella Fishman MA Financial Resource Worker 02/22/22 02/23/22 Richard Kam MD [address] [place] [address] Assigned Musculoskeletal Provider 08/14/22 [facility] [place] [address] Pharmacist Pharmacist 11/22/22 01/09/23 [place] [address] [place] , [address] [address] Assigned Neuroscience Provider 01/01/23 12/03/24 Rosemarie Mcdowell, RN Dining Room Attendant Cafeteria Diabetes Education 03/17/23 Ravi Brownlee MD [address] [place] [address] 302195 Assigned Heart and Vascular Provider 09/04/23 01/03/24 Mitra Kendall LSW Lead Apple Checker Primary Care - CC 12/12/23 Lizet Mann PA-C [address] [place] [address] Assigned Cancer Care Provider 01/04/24 Ravi Brownlee MD 420 [facility] [address] [place], [place] 683235 Assigned Pulmonology Provider 01/04/24 Nav Hughes MD 6405 [facility] [address] [place], [place] 173655 Assigned Heart and Vascular Provider 01/04/24 05/05/24 Manuel Ahn, OD [address] [place] [address] Plasterer Stucco 01/05/24 Arabella Fishman MA Financial Resource Worker 01/06/24 03/19/24 Thalia Charles RPH [address] [place] [address] Pharmacist Pharmacy 01/26/24 Gaurav Valenzuela, MANAGER CLIENT RN ELIGIBILITY [address] [place] [address] Assigned Sleep Provider 02/04/24 Manuel Ahn, OD 6341 [place] [address] Assigned Surgical Provider 02/04/24 06/02/24 Debbie Mann MD 1600 [facility] [address] [place] [address] Cardiovascular Disease 02/24/24 Hakeem Chacko MBBS [address] [place] [address] Assigned Rheumatology Provider 04/05/24 Debbie Mann MD 1600 [facility] 200 [place] [address] Assigned Heart and Vascular Provider 05/06/24 Timothy Tejada MD 6341 [place] [phone] Ophthalmology 05/29/24 Timothy Tejada MD 6341 [place] [phone] Assigned Surgical Provider 06/03/24 Elsie Roberts APRN CNP 1600 [facility] 101 [place] [address] Nurse Practitioner Pain Medicine 10/16/24 Cristy Morton MD [address] [place] [address] [address] [place] [id number] Assigned Pediatric Specialist Provider 11/03/24 Georgie Anguiano PA-C 6545 [facility] [address] [place] [id number] Assigned Neuroscience Provider 12/04/24 documented as of this encounter
--- OUTSIDE RECORDS SUMMARY | 2024-12-06 00:27 | XMS_ITS | Encounter Summary ---
Author Organization [place] Address [address] [place] [address] Care Team Providers Care Cfd Engineer Name Role Phone Va Glez MD Primary Care Provider [phone] Va Glez MD Unavailable Kerry Bernal RN Unavailable Ravi Barillas DPM Unavailable [phone] Christy Campuzano PA-C Unavailable [phone] Hans Cannon MD Unavailable Mitra Kendall HOME ENERGY INSPECTOR Unavailable Burt Jovel MD Unavailable Estella Hassan [facility] Unavailable [phone] Reji Chavez MD Unavailable Josh Cordero MD, Madhuri Unavailable [phone] Josh Cordero MD, Madhuri Unavailable [phone] Kelsi Hassan MD Unavailable [phone] John Webb MD Unavailable John Webb MD Unavailable [phone] Estella Hassan [facility] Unavailable Nav Hughes MD Unavailable [phone] Cassandra Mendoza MD Unavailable Estella Hassan RPH Unavailable Mitra Kendall HOME ENERGY INSPECTOR Unavailable Aurelio Lindsay Kenzie OD Unavailable Ravi Brownlee MD Unavailable Kye Arabella MA Unavailable [phone] Richard Kam MD Unavailable Marisol Patel RPH Unavailable Gaby Vila DO Unavailable Rosemarie Mcdowell RN Unavailable Ravi Brownlee MD Unavailable Mitra Kendall HOME ENERGY INSPECTOR Unavailable Lizet MannC Unavailable Ravi Brownlee MD Unavailable Nav Hughes MD Unavailable [phone] Manuel Ahn OD Unavailable Kye Arabella MA Unavailable [phone] Thalia Charles RP Unavailable Gaurav Valenzuela APRN ACTUARIAL SCIENCE PROFESSOR Unavailable Manuel Ahn OD Unavailable Debbie Mann MD Unavailable Hakeem Chacko Unavailable Debbie Mann MD Unavailable Timothy Tejada MD Unavailable Timothy Tejada MD Unavailable Elsie Roberts APRN ACTUARIAL SCIENCE PROFESSOR Unavailable + Cristy Morton MD Unavailable [phone] Georgie Anguiano PA-C Unavailable [phone] Encounter Details Date Type Department Care Team (Late st Contact Info) Description 07/14/2020 MyC Medical Advice [facility] [address] [place] [address] Elaina Moreno MD [address] [place] [address] Social History Tobacco Use Types Packs/Day [...] and Family Not on file 05/31/2019 Attends [employer] Not on file 05/30 Active Member [...] Answer Date Recorded PHQ-2 Score 0 06/05/2020 [facility] [place] of Occupat ional Health - Occupational Stress [...] on file Legal 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 Gender Identity Not on file Sexual Orientation [...] Description 12/11/2024 2:10 PM CDT Therapy Visit [facility] [address] [place] [phone] Shanta Cooper PT 12/14/2024 11:20 AM CDT Office Visit [facility] [address] [facility] [place] [address] Lizet Mann PA-C [address] [facility] [address] 12/17/2024 2:10 PM CDT Office Visit [facility] Orthopedic [facility] 909 [facility] 4th [place] [phone] Richard Kam MD [address] [place] [address] 12/19/2024 8:20 AM CDT Therapy Visit [address] [address] Shanta Cooper, PT 12/24/2024 5:00 PM CDT Therapy Visit [address] [address] Pattie Casillas, PT 12/25/2024 10:20 AM CDT Therapy Visit [address] [address] Shanta Cooper, PT 01/03/2025 1:00 PM CDT Office Visit [address] [phone] Estella Hassan, [facility] 30[address] [place] [address] 01/03/2025 1:30 PM CDT Office Visit [address] [address] Va Glez MD [address] [place] [address] [id number] 01/08/2025 1:15 PM CDT Office Visit [address] [phone] Hakeem Chacko MBBS [address] [place] [address] Scheduled Procedures Name Priority Associated Diagnoses Date/Ti me INJECTION, EPIDURAL, TRANSFO RAMINAL APPROACH Cervical radiculitis RELEASE, CARPAL TUNNEL, ENDOSCOPIC Right carpal tunnel syndrome documented as of this encounter Visit Diagnoses Not on filedocumented in this encounter Additional Health Concerns Infection Onset Date Last Indicated Resolved Time Rule Out COVID-19 06/22/2021 06/22/2021 06/23/2021 8:58 PM CDT Rule Out COVID-19 01/22/2022 01/22/2022 01/24/2022 1:05 PM BODY BUILDER APPRENTICE Rule Out COVID-19 01/25/2022 01/25/2022 01/25/2022 5:21 AM BODY BUILDER APPRENTICE Influenza 01/25/2022 01/25/2022 02/01/2022 11:4 1 PM BODY BUILDER APPRENTICE Rule Out COVID-19 07/29/2022 07/29/2022 07/31/2022 11:17 AM CDT Rule Out COVID-19 03/23/2023 03/23/2023 03/23/2023 6:30 PM BODY BUILDER APPRENTICE COVID-19 03/23/2023 03/23/2023 04/13/2023 11:4 0 PM BODY BUILDER APPRENTICE Rule Out COVID-19 06/05/2023 06/05/2023 06/05/2023 5:53 PM CDT Rule Out COVID-19 11/06/2023 11/06/2023 11/06/2023 11:05 PM CDT Rule Out COVID-19 11/20/2023 11/20/2023 11/20/2023 6:43 PM CDT Rule Out COVID-19 12/27/2023 12/27/2023 12/29/2023 1:37 PM CDT Rule Out COVID-19 03/01/2024 03/01/2024 03/01/2024 1:11 PM BODY BUILDER APPRENTICE Rule Out COVID-19 07/18/2024 07/18/2024 07/19/2024 5:52 PM CDT Rule Out COVID-19 10/17/2024 10/17/2024 10/17/2024 11:23 PM CDT Rule Out C-difficile 11/04/2024 11/04/2024 025 1:55 AM CDT Assessment Noted Time PHQ-9 Depression Total Score: 2 06/06/19 21 12:47 PM CDT documented as of this encounter Care Teams Cfd Engineer Relationship Specialty [place] [address] [place] [address] PCP - General Family Practice 07/11/14 [place] [address] [place] [address] Assigned PCP 12/16/11 Kerry Bernal RN Personal Advocate & Liaison (PAL) 01/08/19 07/10/23 Ravi Barillas DPM [address] [facility] [address] [place] [address] Assigned Musculoskeletal Provider 03/23/20 10/30/21 Christy Campuzano PA-C [address] [place] [address] Referring Physician Family Medicine 04/22/20 Hans Cannon MD [address] [place] [address] Resident Pulmonary Disease 04/22/20 Mitra Kendall, HOME ENERGY INSPECTOR Lead Rn Navigator Primary Care - CC 01/08/1901/12 Burt Jovel MD Internal Medicine 05/08/20 12/13/23 Estella Hassan, [facility] [address] [place] [address] Pharmacist Pharmacist 05/26/20 Reji Chavez MD [address] [place] [phone] Assigned Heart and Vascular Provider 05/18/20 10/30/21 Elaina Moreno MD 909 [place], [place] 750045 Assigned Surgical Provider 05/18/20 11/19/22 Elaina Moreno MD [address] [place] [address] 749445 Cardiovascular & Thoracic Surgery 08/06/20 Kelsi Hassan MD [address] [place] [address] Assigned Pulmonology Provider 06/28/21 02/05/22 John Webb MD [address] [place] [address] Cardiovascular Disease 08/25/21 John Webb MD [address] 963975 Cardiovascular Disease 08/25/21 Estella Hassan, [facility] 30[address] [place] [address] Assigned MTM Pharmacist 09/05/21 Nav Hughes MD [address] [place] [address] Assigned Heart and Vascular Provider 10/31/21 09/03/23 Cassandra Mendoza MD ORTHOPAEDIC SURGERY [address] [address] Assigned Musculoskeletal Provider 10/31/21 08/13/22 Estella Hassan, [facility] [address] [place] [address] Assigned MTM Pharmacist 12/09/21 Mitra Kendall, [facility] Lead Rn Navigator Primary Care - CC 01/26/2210/28 Lindsay Carey OD 3305 [facility] [place] [address] Ophthalmology 01/29/22 Ravi Brownlee MD 420 [facility] 276 [place] [address] Assigned Pulmonology Provider 02/06/22 09/03/23 Arabella Fishman MA Financial Resource Worker 02/22/22 02/23/22 Richard Kam MD 500 [place] [address] Assigned Musculoskeletal Provider 08/14/22 Marisol Patel, [facility] [address] [place] [address] Pharmacist Pharmacist 11/22/22 01/09/23 [place] [address] [place], [address] 096057 Assigned Neuroscience Provider 01/01/23 12/03/24 Rosemarie Mcdowell, RN Clinical Dental Technician Diabetes Education 03/17/23 Ravi Brownlee MD [address] [place] [address] 235725 Assigned Heart and Vascular Provider 09/04/23 01/03/24 Mitra Kendall, HOME ENERGY INSPECTOR Lead Rn Navigator Primary Care - CC 12/12/23 Lizet Mann PA-C [address] [place] [address] Assigned Cancer Care Provider 01/04/24 Ravi Brownlee MD [address] [place] [address] Assigned Pulmonology Provider 01/04/24 Nav Hughes MD [address] [place] [address] [address] [address] Assigned Heart and Vascular Provider 01/04/24 05/05/24 Manuel Ahn OD 6341 [facility] [address] [place] [address] Slate Roofer Helper 01/05/24 Arabella Fishman MA Financial Resource Worker 01/06/24 03/19/24 Thalia Charles [facility] [address] [place] [address] Pharmacist Pharmacy 01/26/24 Gaurav Valenzuela APRN ACTUARIAL SCIENCE PROFESSOR 606 [facility] 106 [place] [address] Assigned Sleep Provider 02/04/24 Manuel Ahn OD 6341 [place], [place] 614742 Assigned Surgical Provider 02/04/24 06/02/24 Debbie Mann MD 1600 [facility] 200 [place] [address] Cardiovascular Disease 02/24/24 Hakeem Chacko MBBS 2945 [place] [address] Assigned Rheumatology Provider 04/05/24 Debbie Mann MD 1600 [facility] 200 [place] [address] Assigned Heart and Vascular Provider 05/06/24 Timothy Tejada MD 6341 [place] [phone] Ophthalmology 05/29/24 Timothy Tejada MD [address] [place] [address] Assigned Surgical Provider 06/03/24 Elsie Roberts APRN ACTUARIAL SCIENCE PROFESSOR 1600 [facility] [place] [address] [place] [place] [address] Nurse Practitioner Pain Medicine 10/16/24 Cristy Morton MD 14[address] [facility] [place] [address] Assigned Pediatric Specialist Provider 11/03/24 Georgie Anguiano PA-C [address] [address] Assigned Neuroscience Provider 12/04/24 documented as of this encounter
--- OUTSIDE RECORDS SUMMARY | 2024-12-06 00:27 | XMS_ITS | Encounter Summary ---
Author Organization [facility] Address [address] [place] [address] Care Team Providers Care [facility] Lieutenant Name Role Phone Va Glez MD Primary Care Provider Va Glez MD Unavailable Kerry Bernal RN Unavailable [phone] Ravi Barillas DPM Unavailable [phone] Christy Campuzano PA-C Unavailable [phone] Hans Cannon MD Unavailable [phone] Mitra Kendall PLATE SHEAR OPERATOR Unavailable Burt Jovel MD Unavailable [phone] Estella Hassan [facility] Unavailable Reji Chavez MD Unavailable [phone] Josh Cordero MD, Madhuri Unavailable [phone] Josh Cordero MD, Madhuri Unavailable [phone] Kelsi Hassan MD Unavailable [phone] John Webb MD Unavailable [phone] John Webb MD Unavailable Estella Hassan [facility] Unavailable [phone] Nav Hughes MD Unavailable [phone] Cassandra Mendoza MD Unavailable Estella Hassan RPH Unavailable Mitra Kendall PLATE SHEAR OPERATOR Unavailable Aurelio Lindsay Kenzie OD Unavailable Ravi Brownlee MD Unavailable Kye Arabella MA Unavailable [phone] Richard Kam MD Unavailable Marisol Patel RPH Unavailable Gaby Vila DO Unavailable Rosemarie Mcdowell RN Unavailable Ravi Brownlee MD Unavailable Mitra Kendall PLATE SHEAR OPERATOR Unavailable Lizet MannC Unavailable Ravi Brownlee MD Unavailable Nav Hughes MD Unavailable [phone] Manuel Ahn OD Unavailable Kye Arabella MA Unavailable [phone] Thalia Charles RP Unavailable Gaurav Valenzuela APRN UNDERGROUND UTILITY LOCATOR Unavailable Manuel Ahn OD Unavailable Debbie Mann MD Unavailable Hakeem Chacko Unavailable Debbie Mann MD Unavailable Timothy Tejada MD Unavailable Timothy Tejada MD Unavailable Elsie Roberts APRN UNDERGROUND UTILITY LOCATOR Unavailable + Cristy Morton MD Unavailable [phone] Georgie Anguiano PA-C Unavailable [phone] Encounter Details Date Type Department Care Team (Late st Contact Info) Description 07/11/2020 [facility] Medical Advice [address] [address] Breanna Mustafa, DIESEL ENGINE SPECIALIST Social History Tobacco Use Types Packs/Day Years [...] and Family Not on file 05/31/2019 Attends Muslim Services Not on file 05/30 Active Member [...] Answer Date Recorded PHQ-2 Score 0 06/05/2020 [facility] [place] of Occupat ional Health - Occupational Stress [...] on file Legal 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 Gender Identity Not on file Sexual Orientation [...] Description 12/11/2024 2:10 PM CDT Therapy Visit [facility] [address] [place] [phone] Shanta Cooper, MOIZ 12/14/2024 11:20 AM CDT Office Visit [facility] [address] [place] [address] [place] [phone] Lizet Mann PA-C [address] [place], [place] [address] [place] [address] 12/17/2024 2:10 PM CDT Office Visit [facility] Orthopedic [address] 4th [place] [phone] Richard Kam MD [address] [place] [address] 12/19/2024 8:20 AM CDT Therapy Visit [address] [phone] Shanta Cooper, PT 12/24/2024 5:00 PM CDT Therapy Visit [address] [phone] Pattie Casillas, PT 12/25/2024 10:20 AM CDT Therapy Visit [address] [phone] Shanta Cooper, PT 01/03/2025 1:00 PM CDT Office Visit [address] [phone] Estella [place] [id number] [place] [address] 01/03/2025 1:30 PM CDT Office Visit [address] [phone] Va Glez MD [address] [place] [address] 01/08/2025 1:15 PM CDT Office Visit [facility] [address] [place] [phone] Hakeem Chacko MBBS [address] [place] [address] Scheduled Procedures Name Priority Associated Diagnoses Date/Ti me INJECTION, EPIDURAL, TRANSFO RAMINAL APPROACH Cervical radiculitis RELEASE, CARPAL TUNNEL, ENDOSCOPIC Right carpal tunnel syndrome documented as of this encounter Visit Diagnoses Not on filedocumented in this encounter Additional Health Concerns Infection Onset Date Last Indicated Resolved Time Rule Out COVID-19 06/22/2021 06/22/2021 06/23/2021 8:58 PM CDT Rule Out COVID-19 01/22/2022 01/22/2022 01/24/2022 1:05 PM HOSPITAL ADMITTING CLERK Rule Out COVID-19 01/25/2022 01/25/2022 01/25/2022 5:21 AM HOSPITAL ADMITTING CLERK Influenza 01/25/2022 01/25/2022 02/01/2022 11:4 1 PM HOSPITAL ADMITTING CLERK Rule Out COVID-19 07/29/2022 07/29/2022 07/31/2022 11:17 AM CDT Rule Out COVID-19 03/23/2023 03/23/2023 03/23/2023 6:30 PM HOSPITAL ADMITTING CLERK COVID-19 03/23/2023 03/23/2023 04/13/2023 11:4 0 PM HOSPITAL ADMITTING CLERK Rule Out COVID-19 06/05/2023 06/05/2023 06/05/2023 5:53 PM CDT Rule Out COVID-19 11/06/2023 11/06/2023 11/06/2023 11:05 PM CDT Rule Out COVID-19 11/20/2023 11/20/2023 11/20/2023 6:43 PM CDT Rule Out COVID-19 12/27/2023 12/27/2023 12/29/2023 1:37 PM CDT Rule Out COVID-19 03/01/2024 03/01/2024 03/01/2024 1:11 PM HOSPITAL ADMITTING CLERK Rule Out COVID-19 07/18/2024 07/18/2024 07/19/2024 5:52 PM CDT Rule Out COVID-19 10/17/2024 10/17/2024 10/17/2024 11:23 PM CDT Rule Out C-difficile 11/04/2024 11/04/2024 025 1:55 AM CDT Assessment Noted Time PHQ-9 Depression Total Score: 2 06/06/19 12:47 PM CDT documented as of this encounter Care Teams [facility] Lieutenant Relationship Specialty [place] [address] [place] [address] PCP - General Family Practice 07/11/14 [place] [address] [place] [address] Assigned PCP 12/16/11 Kerry Bernal, INOCENCIO Personal Advocate & Liaison (PAL) 01/08/19 07/10/23 Ravi Barillas DPM [address] [facility] [address] [place] [address] Assigned Musculoskeletal Provider 03/23/20 10/30/21 Christy Campuzano PA-C [address] [place] [address] 649862 Referring Physician Family Medicine 04/22/20 Hans Cannon MD [address] [place] [address] 028132 Resident Pulmonary Disease 04/22/20 Mitra Kendall, PLATE SHEAR OPERATOR Lead Hall Supervisor Primary Care - CC 01/08/1901/12 Burt Jovel MD Internal Medicine 05/08/20 12/13/23 Estella Hassan, [facility] [address] [place] [address] Pharmacist Pharmacist 05/26/20 Reji Chavez MD [address] [place] [phone] Assigned Heart and Vascular Provider 05/18/20 10/30/21 Elaina Moreno MD 909 [place] [address] Assigned Surgical Provider 05/18/20 11/19/22 Elaina Moreno MD [address] [place] [address] Cardiovascular & Thoracic Surgery 08/06/20 Kelsi Hassan MD [address] [place] [address] Assigned Pulmonology Provider 06/28/21 02/05/22 John Webb MD [address] [address] Cardiovascular Disease 08/25/21 John Webb MD [address] [address] Cardiovascular Disease 08/25/21 Estella Hassan, [facility] [address] [place] [address] Assigned MTM Pharmacist 09/05/21 Nav Hughes MD [address] [place] [address] Assigned Heart and Vascular Provider 10/31/21 09/03/23 Cassandra Mendoza MD ORTHOPAEDIC SURGERY [address] [address] Assigned Musculoskeletal Provider 10/31/21 08/13/22 Estella Hassan, [facility] [address] [place] [address] Assigned MTM Pharmacist 12/09/21 Mitra Kendall, [facility] Lead Hall Supervisor Primary Care - CC 01/26/2210/28 Lindsay Carey, ARA [address] [place] [address] [place] [address] Ophthalmology 01/29/22 Ravi Brownlee MD [address] [place] [address] 276 [place], [place] [address] Assigned Pulmonology Provider 02/06/22 09/03/23 Arabella Fishman MA Financial Resource Worker 02/22/22 02/23/22 Richard Kam MD [address] [place] [address] Assigned Musculoskeletal Provider 08/14/22 Marisol Patel, [facility] [address] [place] [address] Pharmacist Pharmacist 11/22/22 01/09/23 [place] [address] [address] Assigned Neuroscience Provider 01/01/23 12/03/24 Rosemarie Mcdowell, RN Deli Slicer Diabetes Education 03/17/23 Ravi Brownlee MD [address] 924545 Assigned Heart and Vascular Provider 09/04/23 01/03/24 Mitra Kendall, [facility] Lead Hall Supervisor Primary Care - CC 12/12/23 Lizet Mann PA-C [address] [place] [address] 134269 Assigned Cancer Care Provider 01/04/24 Ravi Brownlee MD [address] [place] [address] 468915 Assigned Pulmonology Provider 01/04/24 Nav Hughes MD 6405 [facility] [place] [address]45 Assigned Heart and Vascular Provider 01/04/24 05/05/24 Manuel Ahn OD 6341 [facility] [place] 9[address] Malt Roaster 01/05/24 Arabella Fishman MA Financial Resource Worker 01/06/24 03/19/24 Thalia Charles [facility] [address] [place] [address] Pharmacist Pharmacy 01/26/24 Gaurav Valenzuela APRN UNDERGROUND UTILITY LOCATOR 606 [facility] 106 [place] [address] Assigned Sleep Provider 02/04/24 Manuel Ahn OD 6341 [place], [place] 669572 Assigned Surgical Provider 02/04/24 06/02/24 Debbie Mann MD 1600 [facility] 200 [place] [address] Cardiovascular Disease 02/24/24 Hakeem Chacko MBBS 2945 [place] [address] Assigned Rheumatology Provider 04/05/24 Debbie Mann MD 1600 [facility] 200 [place], [place] [phone] Assigned Heart and Vascular Provider 05/06/24 Timothy Tejada MD 6341 [place] [phone] Ophthalmology 05/29/24 Timothy Tejada MD 6341 [place] [phone] Assigned Surgical Provider 06/03/24 Elsie Roberts APRN UNDERGROUND UTILITY LOCATOR 1600 [facility] 101 [place] [address] Nurse Practitioner Pain Medicine 10/16/24 Cristy Morton MD [facility]0 [facility] [address]O [phone] Assigned Pediatric Specialist Provider 11/03/24 Georgie Anguiano PA-C [address] 567835 Assigned Neuroscience Provider 12/04/24 documented as of this encounter
--- OUTSIDE RECORDS SUMMARY | 2024-12-06 00:27 | XMS_ITS | Encounter Summary ---
Author Organization [facility] Address [address] [place] [address] Care Team Providers Care Personal Lines Agent Name Role Phone Va Glez MD Primary Care Provider Va Glez MD Unavailable Kerry Bernal RN Unavailable Christy Campuzano PA-C Unavailable Hans Cannon MD Unavailable Burt Jovel MD Unavailable [phone] Estella Hassan [facility] Unavailable Josh Cordero MD, Madhuri Unavailable [phone] Josh Cordero MD, Madhuri Unavailable [phone] Kelsi Hassan MD Unavailable [phone] John Webb MD Unavailable John Webb MD Unavailable [phone] Nav Hughes MD Unavailable [phone] Cassandra Mendoza MD Unavailable Estella Hassan [facility] Unavailable Mitra Kendall FINANCE DIRECTOR Unavailable Lindsay Carey OD Unavailable Ravi Brownlee MD Unavailable Arabella Fishman MA Unavailable Richard Kam MD Unavailable Marisol Patel Molly Jacques H Unavailable Julito Gaby Patti DO Unavailable Rosemarie Mcdowell RN Unavailable Ravi Brownlee MD Unavailable Mitra Kendall FINANCE DIRECTOR Unavailable Lizet MannC Unavailable Ravi Brownlee MD Unavailable Nav Hughes MD Unavailable [phone] Manuel Ahn OD Unavailable Arabella Fishman MA Unavailable [phone] Allen Charleslla [facility] Unavailable Gaurav Valenzuela APRN FLOOR ASSEMBLER Unavailable Manuel Ahn OD Unavailable Debbie Mann MD Unavailable Hakeem Chacko Unavailable Debbie Mann MD Unavailable Timothy Tejada MD Unavailable Timothy Tejada MD Unavailable Elsie Roberts APRN FLOOR ASSEMBLER Unavailable + Cristy Morton MD Unavailable Georgie Anguiano PA-C Unavailable Encounter Details Date Type Department Care Team (Late st Contact Info) Description 01/29/2022 [facility] [address] [place] [address] Bc [...] Answer Date Recorded PHQ-2 Score 1 01/28/2022 [facility] [place] of Occupat ional Health - Occupational Stress [...] place to sleep or slept in a residential (including now)? No 02/02/2022 Sex and Gender Information Value Date Recorded Sex Assigned at Not on file Legal Sex Male 3:29 AM ROBOT DESIGNER Gender Identity Not on file Sexual Orientation Not on file Occupation Industry Job Start Date Job End Date Not on file Not on file Not on file Not on file COVID-19 Exposure Response Date Recorded In the last 10 days, have yo u been in contact with someone who was confirmed or suspected to have Coronavirus/COVID-19? No / Unsure 01/29/2022 2:12 PM ROBOT DESIGNER documented as of this encounter Plan of Treatment Upcoming Encounters Date Type Department Care Team (Late st Contact Info) Description 12/11/2024 2:10 PM CDT Therapy Visit [facility] [address] [place] [phone] Shanta Cooper, MOIZ 12/14/2024 11:20 AM CDT Office Visit [facility] [address] [place] [address] [place] [phone] Lizet Mann PA-C [id number] [place], [place] [address]E [facility] [place] [address] 12/17/2024 2:10 PM CDT Office Visit [facility] Orthopedic [facility] 909 [facility] 4th [place] [phone] Richard Kam MD [address] [place] [address] 12/19/2024 8:20 AM CDT Therapy Visit [address] [address] Shanta Cooper, PT 12/24/2024 5:00 PM CDT Therapy Visit [address] [address] Pattie Casillas, PT 12/25/2024 10:20 AM CDT Therapy Visit [address] [address] Shanta Cooper, PT 01/03/2025 1:00 PM CDT Office Visit [address] [phone] Estella Hassan, [facility] 30[address] [place] [address] 01/03/2025 1:30 PM CDT Office Visit [address] [phone] Va Glez MD [address] [place] [address] 01/08/2025 1:15 PM CDT Office Visit [address] [address] Hakeem Chacko MBBS [address] [place] [address] [phone] Scheduled Procedures Name Priority Associated Diagnoses Date/Ti me INJECTION, EPIDURAL, TRANSFO RAMINAL APPROACH Cervical radiculitis RELEASE, CARPAL TUNNEL, ENDOSCOPIC Right carpal tunnel syndrome documented as of this encounter Visit Diagnoses Not on filedocumented in this encounter Additional Health Concerns Infection Onset Date Last Indicated Resolved Time Influenza 01/25/2022 01/25/2022 02/01/2022 11:4 1 PM ROBOT DESIGNER Rule Out COVID-19 07/29/2022 07/29/2022 07/31/2022 11:17 AM CDT Rule Out COVID-19 03/23/2023 03/23/2023 03/23/2023 6:30 PM ROBOT DESIGNER COVID-19 03/23/2023 03/23/2023 04/13/2023 11:4 0 PM ROBOT DESIGNER Rule Out COVID-19 06/05/2023 06/05/2023 06/05/2023 5:53 PM CDT Rule Out COVID-19 11/06/2023 11/06/2023 11/06/2023 11:05 PM CDT Rule Out COVID-19 11/20/2023 11/20/2023 11/20/2023 6:43 PM CDT Rule Out COVID-19 12/27/2023 12/27/2023 12/29/2023 1:37 PM CDT Rule Out COVID-19 03/01/2024 03/01/2024 03/01/2024 1:11 PM ROBOT DESIGNER Rule Out COVID-19 07/18/2024 07/18/2024 07/19/2024 5:52 PM CDT Rule Out COVID-19 10/17/2024 10/17/2024 10/17/2024 11:23 PM CDT Rule Out C-difficile 11/04/2024 11/04/2024 025 1:55 AM CDT Assessment Noted Time PHQ-9 Depression Total Score: 4 01/29/20 22 3:29 PM ROBOT DESIGNER documented as of this encounter Care Teams Personal Lines Agent Relationship Specialty [place] [address] [place] [address] PCP - General Family Practice 07/11/14 [place] [address] [place] [address] Assigned PCP 12/16/11 Kerry Bernal, INOCENCIO Personal Advocate & Liaison (PAL) 01/08/19 07/10/23 Christy Campuzano PA-C [address] [place] [address] 747742 Referring Physician Family Medicine 04/22/20 Hans Cannon MD [address] [place] [address] Resident Pulmonary Disease 04/22/20 Burt Jovel MD [address] [place] [address] 587502 Internal Medicine 05/08/20 12/13/23 Estella Hassan, [facility] [address] [place] [address] Pharmacist Pharmacist 05/26/20 Elaina Moreno MD [address] [place] [address] 157915 Assigned Surgical Provider 05/18/20 11/19/22 Elaina Moreno MD [address] [place] [address] Cardiovascular & Thoracic Surgery 08/06/20 Kelsi Hassan MD [address] [place] [address] Assigned Pulmonology Provider 06/28/21 02/05/22 John Webb MD [address] 191815 Cardiovascular Disease 08/25/21 John Webb MD [address] [place] 406[address] Cardiovascular Disease 08/25/21 Nav Hughes MD [address] 166655 Assigned Heart and Vascular Provider 10/31/21 09/03/23 Cassandra Mendoza MD ORTHOPAEDIC SURGERY [address] [address] Assigned Musculoskeletal Provider 10/31/21 08/13/22 Estella Hassan, [facility] [address] [place] [address] Assigned MTM Pharmacist 12/09/21 Mitra Kendall, [facility] Lead Corporate Real Estate Manager Primary Care - CC 01/26/2210/28 Lindsay Carey OD [address] [place] [address] Ophthalmology 01/29/22 Ravi Brownlee MD [address] [place] [address] Assigned Pulmonology Provider 02/06/22 09/03/23 Arabella Fishman MA Financial Resource Worker 02/22/22 02/23/22 Richard Kam MD [address] [place] [address] Assigned Musculoskeletal Provider 08/14/22 Marisol Patel, [facility] [address] [place] [phone] Pharmacist Pharmacist 11/22/22 01/09/23 [place] [address] 306517 Assigned Neuroscience Provider 01/01/23 12/03/24 Rosemarie Mcdowell, RN Retail Banking Manager Diabetes Education 03/17/23 Ravi Brownlee MD [address] [place] [address] Assigned Heart and Vascular Provider 09/04/23 01/03/24 Mitra Kendall, FINANCE DIRECTOR Lead Corporate Real Estate Manager Primary Care - CC 12/12/23 Lizet Mann PA-C [address] [place] [address] Assigned Cancer Care Provider 01/04/24 Ravi Brownlee MD [address] [place] [address] Assigned Pulmonology Provider 01/04/24 Nav Hughes MD 6405 [facility] [address] [place], [place] 148835 Assigned Heart and Vascular Provider 01/04/24 05/05/24 Manuel Ahn, OD 6341 [place] [address] Bail Agent 01/05/24 Arabella Fishman MA Financial Resource Worker 01/06/24 03/19/24 Thalia Charles [facility] [address] [place], [place] [phone] Pharmacist Pharmacy 01/26/24 Gaurav Valenzuela APRN FLOOR ASSEMBLER 606 24TH [facility] 106 [place], [place] 081434 Assigned Sleep Provider 02/04/24 Manuel Ahn, OD 6341 [place] [address] Assigned Surgical Provider 02/04/24 06/02/24 Debbie Mann MD 1600 [facility] 200 [place], [place] [phone] Cardiovascular Disease 02/24/24 Hakeem Chacko MBBS 2945 [place] [address] Assigned Rheumatology Provider 04/05/24 Debbie Mann MD 1600 [facility] 200 [facility] [place] [address] Assigned Heart and Vascular Provider 05/06/24 Timothy Tejada MD 6341 [facility] [place] [address] MD Ophthalmology 05/29/24 Timothy Tejada MD 6341 [facility] [place] [address] Assigned Surgical Provider 06/03/24 Elsie Roberts APRN FLOOR ASSEMBLER 1600 [facility] 101 [facility] [place] [address] Nurse Practitioner Pain Medicine 10/16/24 Cristy Morton MD [address] [facility] [place] [address] Assigned Pediatric Specialist Provider 11/03/24 Georgie Anguiano PA-C [address] [address] Assigned Neuroscience Provider 12/04/24 documented as of this encounter
--- OUTSIDE RECORDS SUMMARY | 2024-12-06 00:27 | XMS_ITS | Encounter Summary ---
Author Organization [facility] Address [address] [place] [address] Care Team Providers Care Gravity Prospecting Supervisor Name Role Phone Va Glez MD Primary Care Provider [phone] Va Glez MD Unavailable Kerry Bernal RN Unavailable [phone] Christy Campuzano PA-C Unavailable [phone] Hans Cannon MD Unavailable Burt Jovel MD Unavailable [phone] Estella Hassan [facility] Unavailable [phone] Josh Cordero MD, Elaina Unavailable [phone] Josh Cordero MD, Elaina Unavailable [phone] John Webb MD Unavailable [phone] John Webb MD Unavailable [phone] Nav Hughes MD Unavailable Cassandra Mendoza MD Unavailable Estella Hassan [facility] Unavailable [phone] Mitra Kendall UROLOGIC SURGEON Unavailable [phone] Lindsay Carey OD Unavailable Ravi Brownlee MD Unavailable [phone] Arabella Fishman MA Unavailable [phone] Richard Kam MD Unavailable Marisol Patel RPH Unavailable VilaGaby DO Unavailable Rosemarie Mcdowell RN Unavailable Ravi Brownlee MD Unavailable Mitra Kendall UROLOGIC SURGEON Unavailable Lizet Mann PA-C Unavailable [phone] Ravi Brownlee MD Unavailable Nav Hughes MD Unavailable [phone] Manuel Ahn OD Unavailable Arabella Fishman MA Unavailable [phone] Thalia Charles RP Unavailable Gaurav Valenzuela TRACTOR SWEEPER OPERATOR PATHOLOGICAL TECHNICIAN Unavailable Manuel Ahn OD Unavailable Debbie Mann MD Unavailable Hakeem Chacko Unavailable Debbie Mann MD Unavailable Timothy Tejada MD Unavailable Timothy Tejada MD Unavailable Elsie Roberts APRN PATHOLOGICAL TECHNICIAN Unavailable + Cristy Morton MD Unavailable Georgie Anguiano PA-C Unavailable Encounter Details Date Type Department Care Team (Late st Contact Info) Description 02/12/2022 [facility] Cancer [address] [address] Marian Agustin, NESSA GLASS EDGER [address] [facility] [address] [place] [address] Social History Tobacco Use Types [...] and Family Not on file 05/31/2019 Attends Denominational Services Not on file 05/30 Active Member [...] Answer Date Recorded PHQ-2 Score 1 01/28/2022 [facility] [place] of Occupat ional Health - Occupational Stress [...] place to sleep or slept in a assisted (including now)? No 02/02/2022 Sex and Gender Information Value Date Recorded Sex Assigned at Not on file Legal Sex Male 3:29 AM SHIFT SUPERVISOR FILM PROCESSING Gender Identity Not on file Sexual Orientation Not on file Occupation Industry Job Start Date Job End Date Not on file Not on file Not on file Not on file COVID-19 Exposure Response Date Recorded In the last 10 days, have yo u been in contact with someone who was confirmed or suspected to have Coronavirus/COVID-19? No / Unsure 02/05/2022 3:31 PM SHIFT SUPERVISOR FILM PROCESSING documented as of this encounter Plan of Treatment Upcoming Encounters Date Type Department Care Team (Late st Contact Info) Description 12/11/2024 2:10 PM CDT Therapy Visit [facility] Rehabilitation Services [address] [place] [address] Shanta Cooper, MOIZ 12/14/2024 11:20 AM CDT Office Visit [facility] [id number] [place] [address] [place] [address] Lizet Mann PA-C [id number] [place], [place] [address] [address] 12/17/2024 2:10 PM CDT Office Visit [facility] Orthopedic [facility] [address] [facility] 4th [place] [address] Richard Kam MD [address] [place] [address] 12/19/2024 8:20 AM CDT Therapy Visit [address] [address] Shanta Cooper, PT 12/24/2024 5:00 PM CDT Therapy Visit [address] [address] Pattie Casillas, PT 12/25/2024 10:20 AM CDT Therapy Visit [address] [address] Shanta Cooper, PT 01/03/2025 1:00 PM CDT Office Visit [address] [phone] Estella Hassan, [facility] [address] [place] [address] 01/03/2025 1:30 PM CDT Office Visit [address] [phone] Va Glez MD [address] [place] [address] [id number] 01/08/2025 1:15 PM CDT Office Visit [address] 200 [place] [phone] Hakeem Chacko MBBS [address] [place] [address] Scheduled Procedures Name Priority Associated Diagnoses Date/Ti me INJECTION, EPIDURAL, TRANSFO RAMINAL APPROACH Cervical radiculitis RELEASE, CARPAL TUNNEL, ENDOSCOPIC Right carpal tunnel syndrome documented as of this encounter Goals Goal Patient Goal Type Associated Problems Recent Progress Patient-Stated? Author Health Maintenance Care Plan HP GENERAL PROBLEM 100%(10/29/19 10:17 AM CDT) No Mitra Kendall, UROLOGIC SURGEON Note: Update on 05/25/22 Barriers: Currently without [...] Out COVID-19 03/23/2023 03/23/2023 03/23/2023 6:30 PM SHIFT SUPERVISOR FILM PROCESSING COVID-19 03/23/2023 03/23/2023 04/13/2023 11:4 0 PM SHIFT SUPERVISOR FILM PROCESSING Rule Out COVID-19 06/05/2023 06/05/2023 06/05/2023 5:53 PM CDT Rule Out COVID-19 11/06/2023 11/06/2023 11/06/2023 11:05 PM CDT Rule Out COVID-19 11/20/2023 11/20/2023 11/20/2023 6:43 PM CDT Rule Out COVID-19 12/27/2023 12/27/2023 12/29/2023 1:37 PM CDT Rule Out COVID-19 03/01/2024 03/01/2024 03/01/2024 1:11 PM SHIFT SUPERVISOR FILM PROCESSING Rule Out COVID-19 07/18/2024 07/18/2024 07/19/2024 5:52 PM CDT Rule Out COVID-19 10/17/2024 10/17/2024 10/17/2024 11:23 PM CDT Rule Out C-difficile 11/04/2024 11/04/2024 025 1:55 AM CDT Assessment Noted Time PHQ-9 Depression Total Score: 4 01/29/20 22 3:29 PM SHIFT SUPERVISOR FILM PROCESSING documented as of this encounter Care Teams Gravity Prospecting Supervisor Relationship Specialty [place] [address] [place] [address] PCP - General Family Practice 07/11/14 [place] [address] [place] [address] Assigned PCP 12/16/11 Kerry Bernal, INOCENCIO Personal Advocate & Liaison (PAL) 01/08/19 07/10/23 Christy Campuzano PA-C [address] [place] [address] Referring Physician Family Medicine 04/22/20 Hans Cannon MD [address] [place] [address] Resident Pulmonary Disease 04/22/20 Burt Jovel MD [address] [place] [address] [id number] Internal Medicine 05/08/20 12/13/23 Estella Hassan, [facility] [address] [place] [address] Pharmacist Pharmacist 05/26/20 Elaina Moreno MD [address] [place] [address] Assigned Surgical Provider 05/18/20 11/19/22 Elaina Moreno MD [address] [place] [address] Cardiovascular & Thoracic Surgery 08/06/20 John Webb MD [address] [place] [address] Cardiovascular Disease 08/25/21 John Webb MD [address] [place] [address] Cardiovascular Disease 08/25/21 Nav Hughes MD [address] [place] [address] Assigned Heart and Vascular Provider 10/31/21 09/03/23 Cassandra Mendoza MD ORTHOPAEDIC SURGERY [facility] [address] [address] Assigned Musculoskeletal Provider 10/31/21 08/13/22 Estella Hassan, [facility] [address] [place] [address] Assigned MTM Pharmacist 12/09/21 Mitra Kendall, UROLOGIC SURGEON Lead Field Marketing Representative Primary Care - CC 01/26/2210/28 Lindsay Carey OD [address] [facility] [place] [address] Ophthalmology 01/29/22 Ravi Brownlee MD [address] [place] [address] 013415 Assigned Pulmonology Provider 02/06/22 09/03/23 Arabella Fishman MA Financial Resource Worker 02/22/22 02/23/22 Richard Kam MD [address] [place] [address] Assigned Musculoskeletal Provider 08/14/22 [facility] [address] [facility] [place] [address] Pharmacist Pharmacist 11/22/22 01/09/23 [place] [address] [facility] [address] [address] Assigned Neuroscience Provider 01/01/23 12/03/24 Rosemarie Mcdowell, RN Light Fixture Servicer Diabetes Education 03/17/23 Ravi Brownlee MD [address] [place] [address] [phone] Assigned Heart and Vascular Provider 09/04/23 01/03/24 Mitra Kendall, UROLOGIC SURGEON Lead Field Marketing Representative Primary Care - CC 12/12/23 Lizet Mann PA-C [address] [place] [address] Assigned Cancer Care Provider 01/04/24 Ravi Brownlee MD [address] [facility] [address] [place], [place] 848935 Assigned Pulmonology Provider 01/04/24 Nav Hughes MD [address] [facility] [address] [place] [phone] Assigned Heart and Vascular Provider 01/04/24 05/05/24 Manuel Ahn, OD [address] [place] [address] Nicu Rn 01/05/24 Arabella Fishman MA Financial Resource Worker 01/06/24 03/19/24 Thalia Charles RPH [address] [place], [place] [phone] Pharmacist Pharmacy 01/26/24 Gaurav Valenzuela, TRACTOR SWEEPER OPERATOR PATHOLOGICAL TECHNICIAN [address] [facility] [address] [place] [address] Assigned Sleep Provider 02/04/24 Manuel Ahn, OD [address] [place] [address] Assigned Surgical Provider 02/04/24 06/02/24 Debbie Mann MD [address] [facility] [address] [place] [address] Cardiovascular Disease 02/24/24 Hakeem Chacko MBBS [address] [place] [address] Assigned Rheumatology Provider 04/05/24 Debbie Mann MD 1600 [facility] 200 [place] [address] Assigned Heart and Vascular Provider 05/06/24 Timothy Tejada MD [address] [place] [address] Ophthalmology 05/29/24 Timothy Tejada MD [address] [place] [address] Assigned Surgical Provider 06/03/24 Elsie Roberts APRN CNP 1600 [facility] 101 [place] [address] Nurse Practitioner Pain Medicine 10/16/24 Cristy Morton MD [address] [place] [address] [place] [address] Assigned Pediatric Specialist Provider 11/03/24 Georgie Anguiano PA-C [address] [facility] [place] [id number] Assigned Neuroscience Provider 12/04/24 documented as of this encounter
--- OUTSIDE RECORDS SUMMARY | 2024-12-06 00:27 | XMS_ITS | Encounter Summary ---
Author Organization [facility] Address [address] [place] [address] Care Team Providers Care Storage Engineer Name Role Phone Va Glez MD Primary Care Provider [phone] Va Glez MD Unavailable Kerry Bernal RN Unavailable [phone] Ravi Barillas DPM Unavailable [phone] Christy Campuzano PA-C Unavailable Hans Cannon MD Unavailable Mirta Kendall COAL CONVEYOR OPERATOR Unavailable [phone] Burt Jovel MD Unavailable Estella Hassan [facility] Unavailable [phone] Reji Chavez MD Unavailable Josh Cordero MD, Madhuri Unavailable [phone] Josh Cordero MD, Madhuri Unavailable [phone] Kelsi Hassan MD Unavailable [phone] John Webb MD Unavailable John Webb MD Unavailable Estella Hassan [facility] Unavailable Nav Hughes MD Unavailable [phone] Cassandra Mendoza MD Unavailable Estella Hassan RPH Unavailable Mitra Kendall COAL CONVEYOR OPERATOR Unavailable Aurelio Lindsay Kenzie OD Unavailable Ravi Brownlee MD Unavailable Kye Arabella MA Unavailable [phone] Richard Kam MD Unavailable Marisol Patel RPH Unavailable Gaby Vila DO Unavailable Rosemarie Mcdowell RN Unavailable Ravi Brownlee MD Unavailable Mitra Kendall COAL CONVEYOR OPERATOR Unavailable Lizet MannC Unavailable Ravi Brownlee MD Unavailable Nav Hughes MD Unavailable [phone] Manuel Ahn OD Unavailable Kye Arabella MA Unavailable [phone] Thalia Charles RP Unavailable Gaurav Valenzuela APRN LOGISTICS OFFICER Unavailable Manuel Ahn OD Unavailable Debbie Mann MD Unavailable Hakeem Chacko Unavailable Debbie Mann MD Unavailable Timothy Tejada MD Unavailable Timothy Teajda MD Unavailable Elsie Roberts APRN LOGISTICS OFFICER Unavailable + Cristy Morton MD Unavailable Georgie Anguiano PA-C Unavailable Encounter Details Date Type Department Care Team (Late st Contact Info) Description 07/09/2020 [facility] Medical Advice [address] [address] Estella Hassan, [facility] [address] [place] [address] Social History Tobacco Use Types Packs/Day Years [...] Answer Date Recorded PHQ-2 Score 0 06/05/2020 [facility] [place] of Occupat ional Health - Occupational Stress [...] on file Legal Sex Male 3: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 DELIVERY DRIVER Gender Identity Not on file Sexual [...] Description 12/11/2024 2:10 PM CDT Therapy Visit [facility] Rehabilitation Services [address] [place] [address] Shanta Cooper PT 12/14/2024 11:20 AM CDT Office Visit [facility] [address] [facility] [address] [facility] [place] [address] Lizet Mann PA-C [address] [facility] [place] [address] 12/17/2024 2:10 PM CDT Office Visit [facility] Orthopedic [facility] 909 [facility] 4th [place] [address] Richard Kam MD [address] [place] [address] 12/19/2024 8:20 AM CDT Therapy Visit [address] [address] Shanta Cooper, PT 12/24/2024 5:00 PM CDT Therapy Visit [address] [address] Pattie Casillas, PT 12/25/2024 10:20 AM CDT Therapy Visit [address] [address] Shanta Cooper, PT 01/03/2025 1:00 PM CDT Office Visit [address] [phone] Estella Hassan, [facility] [address] [place] [address] 01/03/2025 1:30 PM CDT Office Visit [address] [phone] Va Glez MD [address] [place] [address] [id number] 01/08/2025 1:15 PM CDT Office Visit [address] [phone] Hakeem Chacko MBBS [address] [place] [address] Scheduled Procedures Name Priority Associated Diagnoses Date/Ti me INJECTION, EPIDURAL, TRANSFO RAMINAL APPROACH Cervical radiculitis RELEASE, CARPAL TUNNEL, ENDOSCOPIC Right carpal tunnel syndrome documented as of this encounter Visit Diagnoses Not on filedocumented in this encounter Additional Health Concerns Infection Onset Date Last Indicated Resolved Time Rule Out COVID-19 06/22/2021 06/22/2021 06/23/2021 8:58 PM CDT Rule Out COVID-19 01/22/2022 01/22/2022 01/24/2022 1:05 PM PHARMACY DELIVERY DRIVER Rule Out COVID-19 01/25/2022 01/25/2022 01/25/2022 5:21 AM PHARMACY DELIVERY DRIVER Influenza 01/25/2022 01/25/2022 02/01/2022 11:4 1 PM PHARMACY DELIVERY DRIVER Rule Out COVID-19 07/29/2022 07/29/2022 07/31/2022 11:17 AM CDT Rule Out COVID-19 03/23/2023 03/23/2023 03/23/2023 6:30 PM PHARMACY DELIVERY DRIVER COVID-19 03/23/2023 03/23/2023 04/13/2023 11:4 0 PM PHARMACY DELIVERY DRIVER Rule Out COVID-19 06/05/2023 06/05/2023 06/05/2023 5:53 PM CDT Rule Out COVID-19 11/06/2023 11/06/2023 11/06/2023 11:05 PM CDT Rule Out COVID-19 11/20/2023 11/20/2023 11/20/2023 6:43 PM CDT Rule Out COVID-19 12/27/2023 12/27/2023 12/29/2023 1:37 PM CDT Rule Out COVID-19 03/01/2024 03/01/2024 03/01/2024 1:11 PM PHARMACY DELIVERY DRIVER Rule Out COVID-19 07/18/2024 07/18/2024 07/19/2024 5:52 PM CDT Rule Out COVID-19 10/17/2024 10/17/2024 10/17/2024 11:23 PM CDT Rule Out C-difficile 11/04/2024 11/04/2024 025 1:55 AM CDT Assessment Noted Time PHQ-9 Depression Total Score: 2 06/06/19 21 12:47 PM CDT documented as of this encounter Care Teams Storage Engineer Relationship Specialty [place] [address] [place] [address] PCP - General Family Practice 07/11/14 [place] [address] [place] [address] Assigned PCP 12/16/11 Kerry Bernal RN Personal Advocate & Liaison (PAL) 01/08/19 07/10/23 Ravi Barillas DPM [id number] [place] [address] [address] [place] [address] Assigned Musculoskeletal Provider 03/23/20 10/30/21 Christy Campuzano PA-C [address] [place] [address] 444892 Referring Physician Family Medicine 04/22/20 Hans Cannon MD [address] [place] [address] Resident Pulmonary Disease 04/22/20 Mitra Kendall, COAL CONVEYOR OPERATOR Lead Study Lead Primary Care - CC 01/08/1901/12 Burt Jovel MD Internal Medicine 05/08/20 12/13/23 Estella Hassan, [facility] [address] [place] [address] Pharmacist Pharmacist 05/26/20 Reji Chavez MD [address] [facility] [address] [place] [address] Assigned Heart and Vascular Provider 05/18/20 10/30/21 Elaina Moreno MD [address] [place] [address] Assigned Surgical Provider 05/18/20 11/19/22 Elaina Moreno MD [address] [place] [address] Cardiovascular & Thoracic Surgery 08/06/20 Kelsi Hassan MD [address] [place] [address] Assigned Pulmonology Provider 06/28/21 02/05/22 John Webb MD [address] [place] [address] Cardiovascular Disease 08/25/21 John Webb MD [address] [place] 823755 Cardiovascular Disease 08/25/21 Estella Hassan, [facility] [address] [place] [address] Assigned MTM Pharmacist 09/05/21 Nav Hughes MD [address] [facility] [address] [place] [address] Assigned Heart and Vascular Provider 10/31/21 09/03/23 Cassandra Mendoza MD ORTHOPAEDIC SURGERY [address] [address] Assigned Musculoskeletal Provider 10/31/21 08/13/22 Estella Hassan, [facility] [address] [place] [address] Assigned MTM Pharmacist 12/09/21 Mitra Kendall, [facility] Lead Study Lead Primary Care - CC 01/26/2210/28 Lindsay Carey OD [address] [facility] [place] [address] Ophthalmology 01/29/22 Ravi Brownlee MD 420 [facility] 276 [place] [address] Assigned Pulmonology Provider 02/06/22 09/03/23 Arabella Fishman MA Financial Resource Worker 02/22/22 02/23/22 Richard Kam MD 500 [place] [address] Assigned Musculoskeletal Provider 08/14/22 Marisol Patel, [facility] [address] [place] [address] Pharmacist Pharmacist 11/22/22 01/09/23 [place] [address] [place], [address] [place] [address] Assigned Neuroscience Provider 01/01/23 12/03/24 Rosemarie Mcdowell, RN Project Accountant Diabetes Education 03/17/23 Ravi Brownlee MD [address] [place] [address] 759595 Assigned Heart and Vascular Provider 09/04/23 01/03/24 Mitra Kendall, COAL CONVEYOR OPERATOR Lead Study Lead Primary Care - CC 12/12/23 Lizet Mann PA-C [address] [place], [place] [address] [address] Assigned Cancer Care Provider 01/04/24 Ravi Brownlee MD [address] [place] [address] Assigned Pulmonology Provider 01/04/24 Nav Hughes MD [address] [place] [address] [place] [address] Assigned Heart and Vascular Provider 01/04/24 05/05/24 Manuel Ahn OD 6[address] [facility] [place] [place] [address] Direct Care Staffer 01/05/24 Arabella Fishman MA Financial Resource Worker 01/06/24 03/19/24 Thalia Charles [facility] [address] [place] [address] Pharmacist Pharmacy 01/26/24 Gaurav Valenzuela APRN LOGISTICS OFFICER [address] [facility] 106 [place], [place] 4765[address] Assigned Sleep Provider 02/04/24 Manuel Ahn OD [address] [place], [place] 353962 Assigned Surgical Provider 02/04/24 06/02/24 Debbie Mann MD 1600 [facility] 200 [place] [address] Cardiovascular Disease 02/24/24 Hakeem Chacko MBBS [address]45 [place] [address] Assigned Rheumatology Provider 04/05/24 Debbie Mann MD 1600 [facility] 200 [place] [address] Assigned Heart and Vascular Provider 05/06/24 Timothy Tejada MD 6341 [place] [address] Ophthalmology 05/29/24 Timothy Tejada MD [address] [place] [address] Assigned Surgical Provider 06/03/24 Elsie Roberts APRN LOGISTICS OFFICER 1600 [facility] [place] [address] [place] [address] Nurse Practitioner Pain Medicine 10/16/24 Cristy Morton MD 1440 [facility] [place] [address] Assigned Pediatric Specialist Provider 11/03/24 Georgie Anguiano PA-C [address] [place] [place] [address] Assigned Neuroscience Provider 12/04/24 documented as of this encounter
[2024-12-06 00:28] LABS: PCR FLU A Negative PCR FLU A (Negative); PCR FLU B Negative PCR FLU B (Negative); PCR RSV Negative PCR RSV (Negative); SARS PCR* Negative SARS-CoV-2 (Negative)
--- OUTSIDE RECORDS SUMMARY | 2024-12-06 00:28 | XMS_ITS | Encounter Summary ---
Author Organization [facility] Address [address] [place] [address] Care Team Providers Care Uniform Attendant Name Role Phone Va Glez MD Primary Care Provider Va Glez MD Unavailable Kerry Bernal RN Unavailable [phone] Ravi Barillas DPM Unavailable [phone] Christy Campuzano PA-C Unavailable [phone] Hans Cannon MD Unavailable Mitra Kendall DIVISIONAL HUMAN RESOURCES DIRECTOR Unavailable Burt Jovel MD Unavailable [phone] Estella Hassan [facility] Unavailable Reji Chavez MD Unavailable Josh Cordero MD, Madhuri Unavailable [phone] Josh Cordero MD, Madhuri Unavailable [phone] Kelsi Hassan MD Unavailable [phone] John Webb MD Unavailable John Webb MD Unavailable [phone] Estella Hassan [facility] Unavailable Nav Hughes MD Unavailable [phone] Cassandra Mendoza MD Unavailable Estella Hassan RPH Unavailable Mitra Kendall DIVISIONAL HUMAN RESOURCES DIRECTOR Unavailable Aurelio Lindsay Kenzie OD Unavailable Ravi Brownlee MD Unavailable Kye Arabella MA Unavailable [phone] Richard Kam MD Unavailable Marisol Patel RPH Unavailable Gaby Vila DO Unavailable Rosemarie Mcdowell RN Unavailable Ravi Brownlee MD Unavailable Mitra Kendall DIVISIONAL HUMAN RESOURCES DIRECTOR Unavailable Lizet MannC Unavailable Ravi Brownlee MD Unavailable Nav Hughes MD Unavailable [phone] Manuel Ahn OD Unavailable Kye Arabella MA Unavailable [phone] Thalia Charles RP Unavailable Gaurav Valenzuela APRN YEAST TENDER Unavailable Manuel Ahn OD Unavailable Debbie Mann MD Unavailable Hakeem Chacko Unavailable Debbie Mann MD Unavailable Timothy Tejada MD Unavailable Timothy Tejada MD Unavailable Elsie Roberts APRN YEAST TENDER Unavailable + Cristy Morton MD Unavailable [phone] Georgie Anguiano PA-C Unavailable [phone] Encounter Details Date Type Department Care Team (Late st Contact Info) Description 07/24/2020 MyC Medical Advice [facility] [id number] [place] [phone] [place] [id number] [place] [address] Social History Tobacco Use Types Packs/Day [...] Answer Date Recorded PHQ-2 Score 2 07/28/2020 [facility] of Occupat ional [facility] - Occupational Stress Questionnaire Answer Date [...] on file 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 [address] [facility] 4th [place] [phone] Richard Kam MD [address] [place] [address] 12/19/2024 8:20 AM CDT Therapy Visit [address] [address] Shanta Cooper, PT 12/24/2024 5:00 PM CDT Therapy Visit [address] [address] Pattie Casillas, PT 12/25/2024 10:20 AM CDT Therapy Visit [address] [address] Shanta Cooper, PT 01/03/2025 1:00 PM CDT Office Visit [address] [phone] Estella Hassan, [facility] [address] [place] [address] 01/03/2025 1:30 PM CDT Office Visit [address] [phone] [place] [id number] [place] [address] 01/08/2025 1:15 PM CDT Office Visit [address] [address] Hakeem Chacko MBBS [address] [place] [address] Scheduled Procedures Name Priority Associated Diagnoses Date/Ti me INJECTION, EPIDURAL, TRANSFO RAMINAL APPROACH Cervical radiculitis RELEASE, CARPAL TUNNEL, ENDOSCOPIC Right carpal tunnel syndrome documented as of this encounter Visit Diagnoses Not on filedocumented in this encounter Additional Health Concerns Infection Onset Date Last Indicated Resolved Time Rule Out COVID-19 06/22/2021 06/22/2021 06/23/2021 8:58 PM CDT Rule Out COVID-19 01/22/2022 01/22/2022 01/24/2022 1:05 PM CREDIT REFERENCE CLERK Rule Out COVID-19 01/25/2022 01/25/2022 01/25/2022 5:21 AM CREDIT REFERENCE CLERK Influenza 01/25/2022 01/25/2022 02/01/2022 11:4 1 PM CREDIT REFERENCE CLERK Rule Out COVID-19 07/29/2022 07/29/2022 07/31/2022 11:17 AM CDT Rule Out COVID-19 03/23/2023 03/23/2023 03/23/2023 6:30 PM CREDIT REFERENCE CLERK COVID-19 03/23/2023 03/23/2023 04/13/2023 11:4 0 PM CREDIT REFERENCE CLERK Rule Out COVID-19 06/05/2023 06/05/2023 06/05/2023 5:53 PM CDT Rule Out COVID-19 11/06/2023 11/06/2023 11/06/2023 11:05 PM CDT Rule Out COVID-19 11/20/2023 11/20/2023 11/20/2023 6:43 PM CDT Rule Out COVID-19 12/27/2023 12/27/2023 12/29/2023 1:37 PM CDT Rule Out COVID-19 03/01/2024 03/01/2024 03/01/2024 1:11 PM CREDIT REFERENCE CLERK Rule Out COVID-19 07/18/2024 07/18/2024 07/19/2024 5:52 PM CDT Rule Out COVID-19 10/17/2024 10/17/2024 10/17/2024 11:23 PM CDT Rule Out C-difficile 11/04/2024 11/04/2024 025 1:55 AM CDT Assessment Noted Time PHQ-9 Depression Total Score: 7 07/29/19 21 7:03 AM CDT documented as of this encounter Care Teams Uniform Attendant Relationship Specialty [place] [address] [place] [address] PCP - General Family Practice 07/11/14 [place] [address] [place] [address] Assigned PCP 12/16/11 Kerry Bernal RN Personal Advocate & Liaison (PAL) 01/08/19 07/10/23 Ravi Barillas DPM [id number] [place] [address] [address] [place] [address] Assigned Musculoskeletal Provider 03/23/20 10/30/21 Christy Campuzano PA-C [address] [place] [address] 326892 Referring Physician Family Medicine 04/22/20 Hans Cannon MD [address] [place] [address] Resident Pulmonary Disease 04/22/20 Mitra Kendall, DIVISIONAL HUMAN RESOURCES DIRECTOR Lead Hangersmith Primary Care - CC 01/08/1901/12 Burt Jovel MD Internal Medicine 05/08/20 12/13/23 Estella Hassan, [facility] [address] [place] [address] Pharmacist Pharmacist 05/26/20 Reji Chavez MD [address] [place] [phone] Assigned Heart and Vascular Provider 05/18/20 10/30/21 Elaina Moreno MD [address] [place] [address] Assigned Surgical Provider 05/18/20 11/19/22 Elaina Moreno MD [address] [place] [address] Cardiovascular & Thoracic Surgery 08/06/20 Kelsi Hassan MD [address] [place] [address] Assigned Pulmonology Provider 06/28/21 02/05/22 John Webb MD [address] [address] Cardiovascular Disease 08/25/21 John Webb MD [address] [place] [address] Cardiovascular Disease 08/25/21 Estella Hassan, [facility] [address] [place] [address] Assigned MTM Pharmacist 09/05/21 Nav Hughes MD [address] [place] [address] Assigned Heart and Vascular Provider 10/31/21 09/03/23 Cassandra Mendoza MD ORTHOPAEDIC SURGERY [address] [address] Assigned Musculoskeletal Provider 10/31/21 08/13/22 Estella Hassan, [facility] [address] [place] [address] Assigned MTM Pharmacist 12/09/21 Mitra Kendall, [facility] Lead Hangersmith Primary Care - CC 01/26/2210/28 Lindsay Carey OD 3305 [facility] [place] [address] Ophthalmology 01/29/22 Ravi Brownlee MD 420 [facility] 276 [place] [address] Assigned Pulmonology Provider 02/06/22 09/03/23 Arabella Fishman MA Financial Resource Worker 02/22/22 02/23/22 Richard Kam MD 500 [place] [address] Assigned Musculoskeletal Provider 08/14/22 Marisol Patel, [facility] 1440 [facility] [place] [id number] Pharmacist Pharmacist 11/22/22 01/09/23 [place] [address] [place], [address] [address] Assigned Neuroscience Provider 01/01/23 12/03/24 Rosemarie Mcdowell, RN Newspaper Reporter Diabetes Education 03/17/23 Ravi Brownlee MD [address] [place] [address] Assigned Heart and Vascular Provider 09/04/23 01/03/24 Mitra Kendall, [facility] Lead Hangersmith Primary Care - CC 12/12/23 Lizet Mann PA-C [address] [place] [address] Assigned Cancer Care Provider 01/04/24 Ravi Brownlee MD [address] [place] [address] Assigned Pulmonology Provider 01/04/24 Nav Hughes MD 6405 [facility]34 [place] [address] Assigned Heart and Vascular Provider 01/04/24 05/05/24 Manuel Ahn OD 6341 [facility] [place] [address] Inserting Machine Operator 01/05/24 Arabella Fishman MA Financial Resource Worker 01/06/24 03/19/24 Melvin Thalia [facility] [address] [place] [address] Pharmacist Pharmacy 01/26/24 Gaurav Valenzuela APRN YEAST TENDER [address] [facility] 106 [place], [place] 658594 Assigned Sleep Provider 02/04/24 Manuel Ahn OD 6341 [place], [place] 938992 Assigned Surgical Provider 02/04/24 06/02/24 Debbie Mann MD [address] [facility] 200 [place] [address] Cardiovascular Disease 02/24/24 Hakeem Chacko MBBS 2945 [place] [address] Assigned Rheumatology Provider 04/05/24 Debbie Mann MD [address] [facility] 200 [place] [address] Assigned Heart and Vascular Provider 05/06/24 Timothy Tejada MD 6341 [place] [phone] Ophthalmology 05/29/24 Timothy Tejada MD 6341 [place] [phone] Assigned Surgical Provider 06/03/24 Elsie Roberts APRN YEAST TENDER 1600 [facility] [place] [address] [place] [address] Nurse Practitioner Pain Medicine 10/16/24 Cristy Morton MD [address] [place] [address] Assigned Pediatric Specialist Provider 11/03/24 Georgie Anguiano PA-C [address] [address] Assigned Neuroscience Provider 12/04/24 documented as of this encounter
--- OUTSIDE RECORDS SUMMARY | 2024-12-06 00:28 | XMS_ITS | Encounter Summary ---
Author Organization [facility] Address [address] [place] [address] Care Team Providers Care Sound Controller Name Role Phone Va Glez MD Primary Care Provider [phone] Va Glez MD Unavailable Kerry Bernal RN Unavailable [phone] Ravi Barillas DPM Unavailable [phone] Christy Campuzano PA-C Unavailable [phone] Hans Cannon MD Unavailable Mitra Kendall SCADA ENGINEER Unavailable [phone] Burt Jovel MD Unavailable [phone] Estella Hassan [facility] Unavailable Reji Chavez MD Unavailable [phone] Josh Cordero MD, Madhuri Unavailable [phone] Josh Cordero MD, Madhuri Unavailable [phone] Kelsi Hassan MD Unavailable [phone] John Webb MD Unavailable [phone] John Webb MD Unavailable Estella Hassan [facility] Unavailable [phone] Nav Hughes MD Unavailable [phone] Cassandra Mendoza MD Unavailable Estella Hassan RPH Unavailable Mitra Kendall SCADA ENGINEER Unavailable Aurelio Lindsay Kenzie OD Unavailable Ravi Brownlee MD Unavailable Kye Arabella MA Unavailable [phone] Richard Kam MD Unavailable Marisol Patel RPH Unavailable Gaby Vila DO Unavailable Rosemarie Mcdowell RN Unavailable Ravi Brownlee MD Unavailable Mitra Kendall SCADA ENGINEER Unavailable Lizet MannC Unavailable Ravi Brownlee MD Unavailable Nav Hughes MD Unavailable [phone] Manuel Ahn OD Unavailable Kye Arabella MA Unavailable [phone] Thalia Charles RP Unavailable Gaurav Valenzuela APRN BOOTH SUPERVISOR Unavailable Manuel Ahn OD Unavailable Debbie Mann MD Unavailable Hakeem Chacko Unavailable Debbie Mann MD Unavailable Timothy Tejada MD Unavailable Timothy Tejada MD Unavailable Elsie Roberts APRN BOOTH SUPERVISOR Unavailable + Cristy Morton MD Unavailable [phone] Georgie Anguiano PA-C Unavailable [phone] Encounter Details Date Type Department Care Team (Late st Contact Info) Description 07/16/2020 Jojo Medical Advice [facility] [place] [facility] [address] 5th [place] [address] Estela Dhillon RN Social History Tobacco Use Types Packs/Day [...] Answer Date Recorded PHQ-2 Score 0 06/05/2020 [facility] of Occupat ional Health - Occupational [...] on file 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 Rehabilitation Services [address] [place] [phone] Shanta Cooper, MOIZ 12/14/2024 11:20 AM CDT Office Visit [facility] [id number] [place] [address] [place] [phone] Lizet Mann PA-C [address] [place], [place] [address] [address] 12/17/2024 2:10 PM CDT Office Visit [facility] Orthopedic [address] [place] [phone] Richard Kam MD [address] [place] [address] 12/19/2024 8:20 AM CDT Therapy Visit [address] [address] Shanta Cooper, PT 12/24/2024 5:00 PM CDT Therapy Visit [address] [phone] Pattie Casillas, PT 12/25/2024 10:20 AM CDT Therapy Visit [address] [phone] Shanta Cooper, PT 01/03/2025 1:00 PM CDT Office Visit [address] [phone] Estella [place] [address]363 [place] [address] 01/03/2025 1:30 PM CDT Office Visit [address] [phone] Va Glez MD [address] [place] [address] 01/08/2025 1:15 PM CDT Office Visit [address] [phone] Hakeem Chacko MBBS [address] [place] [address] Scheduled Procedures Name Priority Associated Diagnoses Date/Ti me INJECTION, EPIDURAL, TRANSFO RAMINAL APPROACH Cervical radiculitis RELEASE, CARPAL TUNNEL, ENDOSCOPIC Right carpal tunnel syndrome documented as of this encounter Visit Diagnoses Not on filedocumented in this encounter Additional Health Concerns Infection Onset Date Last Indicated Resolved Time Rule Out COVID-19 06/22/2021 06/22/2021 06/23/2021 8:58 PM CDT Rule Out COVID-19 01/22/2022 01/22/2022 01/24/2022 1:05 PM STEEL BOX TOE INSERTER Rule Out COVID-19 01/25/2022 01/25/2022 01/25/2022 5:21 AM STEEL BOX TOE INSERTER Influenza 01/25/2022 01/25/2022 02/01/2022 11:4 1 PM STEEL BOX TOE INSERTER Rule Out COVID-19 07/29/2022 07/29/2022 07/31/2022 11:17 AM CDT Rule Out COVID-19 03/23/2023 03/23/2023 03/23/2023 6:30 PM STEEL BOX TOE INSERTER COVID-19 03/23/2023 03/23/2023 04/13/2023 11:4 0 PM STEEL BOX TOE INSERTER Rule Out COVID-19 06/05/2023 06/05/2023 06/05/2023 5:53 PM CDT Rule Out COVID-19 11/06/2023 11/06/2023 11/06/2023 11:05 PM CDT Rule Out COVID-19 11/20/2023 11/20/2023 11/20/2023 6:43 PM CDT Rule Out COVID-19 12/27/2023 12/27/2023 12/29/2023 1:37 PM CDT Rule Out COVID-19 03/01/2024 03/01/2024 03/01/2024 1:11 PM STEEL BOX TOE INSERTER Rule Out COVID-19 07/18/2024 07/18/2024 07/19/2024 5:52 PM CDT Rule Out COVID-19 10/17/2024 10/17/2024 10/17/2024 11:23 PM CDT Rule Out C-difficile 11/04/2024 11/04/2024 025 1:55 AM CDT Assessment Noted Time PHQ-9 Depression Total Score: 2 06/06/19 21 12:47 PM CDT documented as of this encounter Care Teams Sound Controller Relationship Specialty [place] [address] [place] [address] PCP - General Family Practice 07/11/14 [place] [address] [place] [address] Assigned PCP 12/16/11 Kerry Bernal, [employer] Personal Advocate & Liaison (PAL) 01/08/19 07/10/23 Ravi Barillas DPM [address] [facility] 300 [place], [place] 650737 Assigned Musculoskeletal Provider 03/23/20 10/30/21 Christy Campuzano PA-C [address] [place] [address] 264162 Referring Physician Family Medicine 04/22/20 Hans Cannon MD [address] [place] [address] 331352 Resident Pulmonary Disease 04/22/20 Mitra Kendall, [facility] Lead Incident Response Consultant Primary Care - CC 01/08/1901/12 Burt Jovel MD Internal Medicine 05/08/20 12/13/23 Estella Hassan, [facility] 3033 [place] [address] Pharmacist Pharmacist 05/26/20 Reji Chavez MD [address] [place] [address] Assigned Heart and Vascular Provider 05/18/20 10/30/21 Elaina Moreno MD 909 [place] [address] Assigned Surgical Provider 05/18/20 11/19/22 Elaina Moreno MD [address] [place] [address] Cardiovascular & Thoracic Surgery 08/06/20 Kelsi Hassan MD [address] [place] [address] Assigned Pulmonology Provider 06/28/21 02/05/22 John Webb MD [address] [address] Cardiovascular Disease 08/25/21 John Webb MD [address] [address] Cardiovascular Disease 08/25/21 Estella Hassan, [facility] 3033 [place] [address] Assigned MTM Pharmacist 09/05/21 Nav Hughes MD [address] [place] [address] Assigned Heart and Vascular Provider 10/31/21 09/03/23 Cassandra Mendoza MD ORTHOPAEDIC SURGERY [address] [address] Assigned Musculoskeletal Provider 10/31/21 08/13/22 Estella Hassan, [facility] [address] [place] [address] Assigned MTM Pharmacist 12/09/21 Mitra Kendall, [facility] Lead Incident Response Consultant Primary Care - CC 01/26/2210/28 Lindsay Carey OD [address] [facility] [place] [address] Ophthalmology 01/29/22 Ravi Brownlee MD [address] [place] [address] 276 [place] [address] Assigned Pulmonology Provider 02/06/22 09/03/23 Arabella Fishman MA Financial Resource Worker 02/22/22 02/23/22 Richard Kam MD [address] [place] [address] Assigned Musculoskeletal Provider 08/14/22 Marisol Patel, [facility] [address] [place] [address] Pharmacist Pharmacist 11/22/22 01/09/23 [place] [address] [place] PENA, [address] [address] Assigned Neuroscience Provider 01/01/23 12/03/24 Rosemarie Mcdowell, RN Rose Grader Diabetes Education 03/17/23 Ravi Brownlee MD [address] [place] [address] 183085 Assigned Heart and Vascular Provider 09/04/23 01/03/24 Mitra Kendall, [facility] Lead Incident Response Consultant Primary Care - CC 12/12/23 Lizet Mann PA-C [address] [place] [address] Assigned Cancer Care Provider 01/04/24 Ravi Brownlee MD [address] [place] [address] Assigned Pulmonology Provider 01/04/24 Nav Hughes MD 6405 [facility] [place] 836485 Assigned Heart and Vascular Provider 01/04/24 05/05/24 Maneul Ahn OD 6341 [facility] [address] [place]DS 279822 General Repair Mechanic 01/05/24 Arabella Fishman MA Financial Resource Worker 01/06/24 03/19/24 Thalia Charles [facility] [address] [place] [address] Pharmacist Pharmacy 01/26/24 Gaurav Valenzuela APRN BOOTH SUPERVISOR [address] [facility] 106 [place] [address] Assigned Sleep Provider 02/04/24 Manuel Ahn OD 6341 [place] [address] Assigned Surgical Provider 02/04/24 06/02/24 Debbie Mann MD 1600 [facility] 200 [place] [address] Cardiovascular Disease 02/24/24 Hakeem Chacko MBBS 2945 [place] [address] Assigned Rheumatology Provider 04/05/24 Debbie Mann MD [address] [address] Assigned Heart and Vascular Provider 05/06/24 Timothy Tejada MD 6341 [place] [phone] Ophthalmology 05/29/24 Timothy Tejada MD 6341 [place] [address] Assigned Surgical Provider 06/03/24 Elsie Roberts APRN BOOTH SUPERVISOR [address] [address] Nurse Practitioner Pain Medicine 10/16/24 Cristy Morton MD [address] [place] [place] [id number] Assigned Pediatric Specialist Provider 11/03/24 Georgie Anguiano PA-C [address] [address] Assigned Neuroscience Provider 12/04/24 documented as of this encounter
--- OUTSIDE RECORDS SUMMARY | 2024-12-06 00:28 | XMS_ITS | Encounter Summary ---
Author Organization [place] Address [address] [place] [address] Care Team Providers Care Pole Maker Name Role Phone Va Glez MD Primary Care Provider Va Glez MD Unavailable Kerry Bernal RN Unavailable Ravi Barillas DPM Unavailable [phone] Christy Campuzano PA-C Unavailable [phone] Hans Cannon MD Unavailable Mitra Kendall ACTIVATED SLUDGE OPERATOR Unavailable Burt Jovel MD Unavailable Estella Hassan [facility] Unavailable [phone] Reji Chavez MD Unavailable [phone] Josh Cordero MD, Madhuri Unavailable [phone] Josh Cordero MD, Madhuri Unavailable [phone] Kelsi Hassan MD Unavailable [phone] John Webb MD Unavailable John Webb MD Unavailable Estella Hassan [facility] Unavailable Nav Hughes MD Unavailable [phone] Cassandra Mendoza MD Unavailable Estella Hassan RPH Unavailable Mitra Kendall ACTIVATED SLUDGE OPERATOR Unavailable Aurelio Lindsay Kenzie OD Unavailable Ravi Brownlee MD Unavailable Kye Arabella MA Unavailable [phone] Richard Kam MD Unavailable Marisol Patel RPH Unavailable Gaby Vila DO Unavailable Rosemarei Mcdowell RN Unavailable Ravi Brownlee MD Unavailable Mitra Kendall ACTIVATED SLUDGE OPERATOR Unavailable Lizet MannC Unavailable Ravi Brownlee MD Unavailable Nav Hughes MD Unavailable [phone] Manuel Ahn OD Unavailable Kye Arabella MA Unavailable Thalia Charles RP Unavailable Gaurav Valenzuela APRN OCEAN EXPORT ACCOUNT MANAGER Unavailable Manuel Ahn OD Unavailable Debbie Mann MD Unavailable Hakeem Chacko Unavailable Debbie Mann MD Unavailable Timothy Tejada MD Unavailable Timothy Tejada MD Unavailable Elsie Roberts APRN OCEAN EXPORT ACCOUNT MANAGER Unavailable + Cristy Morton MD Unavailable Georgie Anguiano PA-C Unavailable Encounter Details Date Type Department Care Team (Late st Contact Info) Description 07/29/2020 MyC Medical Advice [facility] [address] [address] Elaina Moreno MD [address] [place] [address] Social History Tobacco Use Types Packs/Day [...] Answer Date Recorded PHQ-2 Score 2 07/28/2020 [facility] [place] of Occupat ional Health - Occupational Stress [...] on file 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 Gender Identity Not on file Sexual Orientation [...] CDT Therapy Visit [facility] [address] [place] [address] Shanta Cooper PT 12/14/2024 11:20 AM CDT Office Visit [facility] [address] [place] [phone] Lizet Mann PA-C [address] [facility] [place] [address] 12/17/2024 2:10 PM CDT Office Visit [facility] [address] [facility] 4th [place] [phone] Richard Kam MD [address] [place] [address] 12/19/2024 8:20 AM CDT Therapy Visit [address] [address] Shanta Cooper, PT 12/24/2024 5:00 PM CDT Therapy Visit [address] [address] Pattie Casillas, PT 12/25/2024 10:20 AM CDT Therapy Visit [address] [address] Shanta Cooper, PT 01/03/2025 1:00 PM CDT Office Visit [address] [phone] Estella Hassan, [facility] [address] [place] [address] 01/03/2025 1:30 PM CDT Office Visit [address] [address] Va Glez MD [address] [place] [phone] 01/08/2025 1:15 PM CDT Office Visit [address] [phone] Hakeem Chacko MBBS [address] [place] [address] Scheduled Procedures Name Priority Associated Diagnoses Date/Ti me INJECTION, EPIDURAL, TRANSFO RAMINAL APPROACH Cervical radiculitis RELEASE, CARPAL TUNNEL, ENDOSCOPIC Right carpal tunnel syndrome documented as of this encounter Visit Diagnoses Not on filedocumented in this encounter Additional Health Concerns Infection Onset Date Last Indicated Resolved Time Rule Out COVID-19 06/22/2021 06/22/2021 06/23/2021 8:58 PM CDT Rule Out COVID-19 01/22/2022 01/22/2022 01/24/2022 1:05 PM STAGE PRODUCER Rule Out COVID-19 01/25/2022 01/25/2022 01/25/2022 5:21 AM STAGE PRODUCER Influenza 01/25/2022 01/25/2022 02/01/2022 11:4 1 PM STAGE PRODUCER Rule Out COVID-19 07/29/2022 07/29/2022 07/31/2022 11:17 AM CDT Rule Out COVID-19 03/23/2023 03/23/2023 03/23/2023 6:30 PM STAGE PRODUCER COVID-19 03/23/2023 03/23/2023 04/13/2023 11:4 0 PM STAGE PRODUCER Rule Out COVID-19 06/05/2023 06/05/2023 06/05/2023 5:53 PM CDT Rule Out COVID-19 11/06/2023 11/06/2023 11/06/2023 11:05 PM CDT Rule Out COVID-19 11/20/2023 11/20/2023 11/20/2023 6:43 PM CDT Rule Out COVID-19 12/27/2023 12/27/2023 12/29/2023 1:37 PM CDT Rule Out COVID-19 03/01/2024 03/01/2024 03/01/2024 1:11 PM STAGE PRODUCER Rule Out COVID-19 07/18/2024 07/18/2024 07/19/2024 5:52 PM CDT Rule Out COVID-19 10/17/2024 10/17/2024 10/17/2024 11:23 PM CDT Rule Out C-difficile 11/04/2024 11/04/2024 025 1:55 AM CDT Assessment Noted Time PHQ-9 Depression Total Score: 7 07/29/19 21 7:03 AM CDT documented as of this encounter Care Teams Pole Maker Relationship Specialty [place] [address] [place] [address] PCP - General Family Practice 07/11/14 [place] [address] [place] [address] Assigned PCP 12/16/11 Kerry Bernal RN Personal Advocate & Liaison (PAL) 01/08/19 07/10/23 Ravi Barillas DPM [address] [facility] 300 [place] [address] Assigned Musculoskeletal Provider 03/23/20 10/30/21 Christy Campuzano PA-C [address] [place] [address] Referring Physician Family Medicine 04/22/20 Hans Cannon MD [address] [place] [address] Resident Pulmonary Disease 04/22/20 Mitra Kendall, ACTIVATED SLUDGE OPERATOR Lead Nursing Agency Manager Primary Care - CC 01/08/1901/12 Burt Jovel MD Internal Medicine 05/08/20 12/13/23 Estella Hassan, [facility] [address] [place] [address] Pharmacist Pharmacist 05/26/20 Reji Chavez MD [address] [place] [phone] Assigned Heart and Vascular Provider 05/18/20 10/30/21 Elaina Moreno MD 909 [place], [place] 917815 Assigned Surgical Provider 05/18/20 11/19/22 Elaina Moreno MD [address] [place] [address] 376615 Cardiovascular & Thoracic Surgery 08/06/20 Kelsi Hassan MD [address] [place] [address] Assigned Pulmonology Provider 06/28/21 02/05/22 John Webb MD [address] [address] Cardiovascular Disease 08/25/21 John Webb MD [address] [id number] Cardiovascular Disease 08/25/21 Estella Hassan, [facility] [address] [place] [address] Assigned MTM Pharmacist 09/05/21 Nav Hughes MD [address] [place] [address] Assigned Heart and Vascular Provider 10/31/21 09/03/23 Cassandra Mendoza MD ORTHOPAEDIC SURGERY [address] [address] Assigned Musculoskeletal Provider 10/31/21 08/13/22 Estella Hassan, [facility] [address] [place] [address] Assigned MTM Pharmacist 12/09/21 Mitra Kendall, [facility] Lead Nursing Agency Manager Primary Care - CC 01/26/2210/28 [place] Carey OD 3[address] [facility] [address] [place] [address] Ophthalmology 01/29/22 Ravi Brownlee MD 420 [facility] 276 [place] [address] Assigned Pulmonology Provider 02/06/22 09/03/23 Arabella Fishman MA Financial Resource Worker 02/22/22 02/23/22 Richard Kam MD 500 [place] [address] Assigned Musculoskeletal Provider 08/14/22 Marisol Patel, [facility] [address] [place] [address] Pharmacist Pharmacist 11/22/22 01/09/23 [place] [address] [place], [address] 171477 Assigned Neuroscience Provider 01/01/23 12/03/24 Rosemarie Mcdowell, RN Hoop Flaring Machine Operator Diabetes Education 03/17/23 Ravi Brownlee MD [address] [place] [address] 026025 Assigned Heart and Vascular Provider 09/04/23 01/03/24 Mitra Kendall, ACTIVATED SLUDGE OPERATOR Lead Nursing Agency Manager Primary Care - CC 12/12/23 Lizet Mann PA-C [address] [place] [address] Assigned Cancer Care Provider 01/04/24 Ravi Brownlee MD [address] [place] [address] Assigned Pulmonology Provider 01/04/24 Nav Hughes MD [address] [place] [address] [address] [address] Assigned Heart and Vascular Provider 01/04/24 05/05/24 Manuel Ahn OD 6341 [facility] [address] [place] [address] Associate Director Financial Aid 01/05/24 Arabella Fishman MA Financial Resource Worker 01/06/24 03/19/24 Thalia Charles [facility] [address] [place] [address] Pharmacist Pharmacy 01/26/24 Gaurav Valenzuela APRN OCEAN EXPORT ACCOUNT MANAGER 606 [facility] 106 [place] [address] Assigned Sleep Provider 02/04/24 Manuel Ahn OD 6341 [place], [place] 658972 Assigned Surgical Provider 02/04/24 06/02/24 Debbie Mann MD 1600 [facility] 200 [place] [address] Cardiovascular Disease 02/24/24 Hakeem Chacko MBBS 2945 [place] [address] Assigned Rheumatology Provider 04/05/24 Debbie Mann MD 1600 [facility] 200 [place] [address] Assigned Heart and Vascular Provider 05/06/24 Timothy Tejada MD 6341 [place] [phone] Ophthalmology 05/29/24 Timothy Tejada MD 6[address] [place] [address] Assigned Surgical Provider 06/03/24 Elsie Roberts APRN OCEAN EXPORT ACCOUNT MANAGER 1600 [facility] [address] [address] Nurse Practitioner Pain Medicine 10/16/24 Cristy Morton MD 1440 [facility] [place] [place] [address] Assigned Pediatric Specialist Provider 11/03/24 Georgie Anguiano PA-C [address] [address] Assigned Neuroscience Provider 12/04/24 documented as of this encounter
--- OUTSIDE RECORDS SUMMARY | 2024-12-06 00:28 | XMS_ITS | Encounter Summary ---
Author Organization [place] Address [address] [place] [address] Care Team Providers Care Fulfillment Specialist Name Role Phone Va Glez MD Primary Care Provider Va Glez MD Unavailable Kerry Bernal RN Unavailable Ravi Barillas DPM Unavailable [phone] Christy Campuzano PA-C Unavailable [phone] Hans Cannon MD Unavailable [phone] Mitra Kendall ASSISTANT ACCOUNT EXECUTIVE Unavailable Burt Jovel MD Unavailable [phone] Estella Hassan [facility] Unavailable Reji Chavez MD Unavailable Josh Cordero MD, Madhuri Unavailable [phone] Josh Cordero MD, Madhuri Unavailable [phone] Kelsi Hassan MD Unavailable [phone] John Webb MD Unavailable John Webb MD Unavailable Estella Hassan [facility] Unavailable Nav Hughes MD Unavailable [phone] Cassandra Mendoza MD Unavailable Estella Hassan RPH Unavailable Mitra Kendall ASSISTANT ACCOUNT EXECUTIVE Unavailable Aurelio Lindsay Kenzie OD Unavailable Ravi Brownlee MD Unavailable Kye Arabella MA Unavailable [phone] Richard Kam MD Unavailable Marisol Patel RPH Unavailable Gaby Vila DO Unavailable Rosemarie Mcdowell RN Unavailable Ravi Brownlee MD Unavailable Mitra Kendall ASSISTANT ACCOUNT EXECUTIVE Unavailable Lizet MannC Unavailable Ravi Brownlee MD Unavailable Nav Hughes MD Unavailable [phone] Manuel Ahn OD Unavailable Kye Arabella MA Unavailable [phone] Thalia Charles RP Unavailable Gaurav Valenzuela APRN TECHNICAL SYSTEM ANALYST Unavailable Manuel Ahn OD Unavailable Debbie Mann MD Unavailable Hakeem Chacko Unavailable Debbie Mann MD Unavailable Timothy Tejada MD Unavailable Timothy Tejada MD Unavailable Elsie Roberts APRN TECHNICAL SYSTEM ANALYST Unavailable + Cristy Morton MD Unavailable Georgie Anguiano PA-C Unavailable [phone] Encounter Details Date Type Department Care Team (Late st Contact Info) Description 07/16/2020 [facility]jo Medical Advice M [facility] [address] 5th [place] [address] Estela Dhillon RN Social History [...] and Family Not on file 05/31/2019 Attends Holiness Services Not on file 05/30 Active Member [...] Answer Date Recorded PHQ-2 Score 0 06/05/2020 [facility] [place] of Occupat ional Health - Occupational Stress [...] on file 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 Gender Identity Not on file Sexual Orientation [...] Description 12/11/2024 2:10 PM CDT Therapy Visit [facility] [address] [place] [phone] Shanta Cooper, MOIZ 12/14/2024 11:20 AM CDT Office Visit [facility] [address] [place] [address] [place] [phone] Lizet Mann PA-C [id number] [place], [place] [address] [address] 12/17/2024 2:10 PM CDT Office Visit [facility] [address] [place] [phone] Richard Kam MD [address] [place] [address] 12/19/2024 8:20 AM CDT Therapy Visit [address] [address] Shanta Cooper, PT 12/24/2024 5:00 PM CDT Therapy Visit [address] [phone] Pattie Casillas, PT 12/25/2024 10:20 AM CDT Therapy Visit [address] [phone] Shanta Cooper, PT 01/03/2025 1:00 PM CDT Office Visit [address] [phone] [place] [address] [place] [address] 01/03/2025 1:30 PM CDT Office Visit [address] [phone] Va Glez MD [address] [place] [address] 01/08/2025 1:15 PM CDT Office Visit [address] [phone] Hakeem Chacko MBBS [address] [place] [address] Scheduled Procedures Name Priority Associated Diagnoses Date/Ti me INJECTION, EPIDURAL, TRANSFO RAMINAL APPROACH Cervical radiculitis RELEASE, CARPAL TUNNEL, ENDOSCOPIC Right carpal tunnel syndrome documented as of this encounter Visit Diagnoses Not on filedocumented in this encounter Additional Health Concerns Infection Onset Date Last Indicated Resolved Time Rule Out COVID-19 06/22/2021 06/22/2021 06/23/2021 8:58 PM CDT Rule Out COVID-19 01/22/2022 01/22/2022 01/24/2022 1:05 PM AIRLINE MECHANIC Rule Out COVID-19 01/25/2022 01/25/2022 01/25/2022 5:21 AM AIRLINE MECHANIC Influenza 01/25/2022 01/25/2022 02/01/2022 11:4 1 PM AIRLINE MECHANIC Rule Out COVID-19 07/29/2022 07/29/2022 07/31/2022 11:17 AM CDT Rule Out COVID-19 03/23/2023 03/23/2023 03/23/2023 6:30 PM AIRLINE MECHANIC COVID-19 03/23/2023 03/23/2023 04/13/2023 11:4 0 PM AIRLINE MECHANIC Rule Out COVID-19 06/05/2023 06/05/2023 06/05/2023 5:53 PM CDT Rule Out COVID-19 11/06/2023 11/06/2023 11/06/2023 11:05 PM CDT Rule Out COVID-19 11/20/2023 11/20/2023 11/20/2023 6:43 PM CDT Rule Out COVID-19 12/27/2023 12/27/2023 12/29/2023 1:37 PM CDT Rule Out COVID-19 03/01/2024 03/01/2024 03/01/2024 1:11 PM AIRLINE MECHANIC Rule Out COVID-19 07/18/2024 07/18/2024 07/19/2024 5:52 PM CDT Rule Out COVID-19 10/17/2024 10/17/2024 10/17/2024 11:23 PM CDT Rule Out C-difficile 11/04/2024 11/04/2024 025 1:55 AM CDT Assessment Noted Time PHQ-9 Depression Total Score: 2 06/06/19 21 12:47 PM CDT documented as of this encounter Care Teams Fulfillment Specialist Relationship Specialty [place] [address] [place] [address] PCP - General Family Practice 07/11/14 [place] [address] [place] [address] Assigned PCP 12/16/11 Kerry Bernal, INOCENCIO Personal Advocate & Liaison (PAL) 01/08/19 07/10/23 Ravi Barillas DPM [address] [facility] 300 [place], [place] 512667 Assigned Musculoskeletal Provider 03/23/20 10/30/21 Christy Campuzano PA-C [address] [place] [address] [phone] Referring Physician Family Medicine 04/22/20 Hans Cannon MD [address] [place] [address] [phone] Resident Pulmonary Disease 04/22/20 Mitra Kendall, [facility] Lead Occupational Therapy Asst Primary Care - CC 01/08/1901/12 Burt Jovel MD Internal Medicine 05/08/20 12/13/23 Estella Hassan, [facility] [address] [place] [address] Pharmacist Pharmacist 05/26/20 Reji Chavez MD [address] [place] [address] Assigned Heart and Vascular Provider 05/18/20 10/30/21 Elaina Moreno MD 909 [place] [address] Assigned Surgical Provider 05/18/20 11/19/22 Elaina Moreno MD [address] [place] [address] Cardiovascular & Thoracic Surgery 08/06/20 Kelsi Hassan MD [address] [place] [address] Assigned Pulmonology Provider 06/28/21 02/05/22 John Webb MD [address] [address] Cardiovascular Disease 08/25/21 John Webb MD [address] [address] Cardiovascular Disease 08/25/21 Estella Hassan, [facility] [address] [place] [address] Assigned MTM Pharmacist 09/05/21 Nav Hughes MD [address] [place] [address] Assigned Heart and Vascular Provider 10/31/21 09/03/23 Cassandra Mendoza MD ORTHOPAEDIC SURGERY [address] [address] Assigned Musculoskeletal Provider 10/31/21 08/13/22 Estella Hassan, [facility] [address] [place] [address] Assigned MTM Pharmacist 12/09/21 Mitra Kendall, [facility] Lead Occupational Therapy Asst Primary Care - CC 01/26/2210/28 Lindsay Carey OD [address] [facility] [place] [address] Ophthalmology 01/29/22 Ravi Brownlee MD [address] [place] [address] 276 [place] [address] Assigned Pulmonology Provider 02/06/22 09/03/23 Arabella Fishman MA Financial Resource Worker 02/22/22 02/23/22 Richard Kam MD [address] [place] [address] Assigned Musculoskeletal Provider 08/14/22 Marisol Patel, [facility] [address] [place] [address] Pharmacist Pharmacist 11/22/22 01/09/23 [place] [address] [address] [place], [address] [address] Assigned Neuroscience Provider 01/01/23 12/03/24 Rosemarie Mcdowell, RN Tail Edger Diabetes Education 03/17/23 Ravi Brownlee MD [address] [place] [address] 450055 Assigned Heart and Vascular Provider 09/04/23 01/03/24 Mitra Kendall, [facility] Lead Occupational Therapy Asst Primary Care - CC 12/12/23 Lizet Mann PA-C [address] [place] [address] Assigned Cancer Care Provider 01/04/24 Ravi Brownlee MD [address] [place] [address] Assigned Pulmonology Provider 01/04/24 Nav Hughes MD 6405 [facility] [place] 189385 Assigned Heart and Vascular Provider 01/04/24 05/05/24 Manuel Ahn OD 6341 [facility] SHANKAR RICHARDS [id number] Event Marketing Manager 01/05/24 Arabella Fishman MA Financial Resource Worker 01/06/24 03/19/24 Thalia Charles [facility] [address] [place] [address] Pharmacist Pharmacy 01/26/24 Gaurav Valenzuela APRN TECHNICAL SYSTEM ANALYST 606 [facility] 106 [place] [address] Assigned Sleep Provider 02/04/24 Manuel Ahn OD 6341 [place] [address] Assigned Surgical Provider 02/04/24 06/02/24 Debbie Mann MD 1600 [facility] 200 [place] [address] Cardiovascular Disease 02/24/24 Hakeem Chacko MBBS 2945 [place] [address] Assigned Rheumatology Provider 04/05/24 Debbie Mann MD [address] [address] Assigned Heart and Vascular Provider 05/06/24 Timothy Tejada MD 6341 [place] [phone] Ophthalmology 05/29/24 Timothy Tejada MD 6341 [place] [address] Assigned Surgical Provider 06/03/24 Elsie Roberts APRN TECHNICAL SYSTEM ANALYST [address] [address] Nurse Practitioner Pain Medicine 10/16/24 Cristy Morton MD [address] [place] [address] [id number] Assigned Pediatric Specialist Provider 11/03/24 Georgie Anguiano PA-C [address] [address] Assigned Neuroscience Provider 12/04/24 documented as of this encounter
--- OUTSIDE RECORDS SUMMARY | 2024-12-06 00:28 | XMS_ITS | Encounter Summary ---
Author Organization [place] Address [address] [place] [address] Care Team Providers Care Meter Shop Superintendent Name Role Phone aV Glez MD Primary Care Provider [phone] Va Glez MD Unavailable Kerry Bernal RN Unavailable [phone] Ravi Barillas DPM Unavailable [phone] Christy Campuzano PA-C Unavailable Hans Cannon MD Unavailable [phone] Mitra Kendall REMARKETING REP Unavailable [phone] Burt Jovel MD Unavailable [phone] Estella Hassan [facility] Unavailable Reji Chavez MD Unavailable Josh Cordero MD, Madhuri Unavailable [phone] Josh Cordero MD, Madhuri Unavailable [phone] Kelsi Hassan MD Unavailable [phone] John Webb MD Unavailable John Webb MD Unavailable [phone] Estella Hassan [facility] Unavailable Nav Hughes MD Unavailable [phone] Cassandra Mendoza MD Unavailable Estella Hassan RPH Unavailable Mitra Kendall REMARKETING REP Unavailable Aurelio Lindsay Kenzie OD Unavailable Ravi Brownlee MD Unavailable Kye Arabella MA Unavailable [phone] Richard Kam MD Unavailable Marisol Patel RPH Unavailable Gaby Vila DO Unavailable Rosemarie Mcdowell RN Unavailable Ravi Brownlee MD Unavailable Mitra Kendall REMARKETING REP Unavailable Lizet MannC Unavailable Ravi Brownlee MD Unavailable Nav Hughes MD Unavailable [phone] Manuel Ahn OD Unavailable Kye Arabella MA Unavailable [phone] Thalia Charles RP Unavailable Gaurav Valenzuela APRN CIRCUS RIDER Unavailable Manuel Ahn OD Unavailable Debbie Mann MD Unavailable Hakeem Chacko Unavailable Debbie Mann MD Unavailable Timothy Tejada MD Unavailable Timothy Tejada MD Unavailable Elsie Roberts APRN CIRCUS RIDER Unavailable + Cristy Morton MD Unavailable Georgie Anguiano PA-C Unavailable [phone] Encounter Details Date Type Department Care Team (Late st Contact Info) Description 07/22/2020 MyC Medical Advice [facility] Mental Health & Addiction [address] [address] Nilsa Harper LICSW [address], [address] [place], [place] [address] Social History Tobacco Use Types Packs/Day Years [...] Answer Date Recorded PHQ-2 Score 0 06/05/2020 [facility] - Occupational Stress [...] file 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 4th [place] [address] Richard Kma MD [address] [place] [address] 12/19/2024 8:20 AM CDT Therapy Visit [address] [address] Shanta Cooper, PT 12/24/2024 5:00 PM CDT Therapy Visit [address] [address] Pattie Casillas, PT 12/25/2024 10:20 AM CDT Therapy Visit [address] [address] Shanta Cooper, PT 01/03/2025 1:00 PM CDT Office Visit [address] [phone] Estella Hassan, [facility] [address] [place] [address] 01/03/2025 1:30 PM CDT Office Visit [address] [address] Va Glez MD [address] [place] [address] [phone] 01/08/2025 1:15 PM CDT Office Visit [address] [phone] Hakeem Chacko MBBS [address] [place] [address] Scheduled Procedures Name Priority Associated Diagnoses Date/Ti me INJECTION, EPIDURAL, TRANSFO RAMINAL APPROACH Cervical radiculitis RELEASE, CARPAL TUNNEL, ENDOSCOPIC Right carpal tunnel syndrome documented as of this encounter Visit Diagnoses Not on filedocumented in this encounter Additional Health Concerns Infection Onset Date Last Indicated Resolved Time Rule Out COVID-19 06/22/2021 06/22/2021 06/23/2021 8:58 PM CDT Rule Out COVID-19 01/22/2022 01/22/2022 01/24/2022 1:05 PM BARREL ASSEMBLER HELPER Rule Out COVID-19 01/25/2022 01/25/2022 01/25/2022 5:21 AM BARREL ASSEMBLER HELPER Influenza 01/25/2022 01/25/2022 02/01/2022 11:4 1 PM BARREL ASSEMBLER HELPER Rule Out COVID-19 07/29/2022 07/29/2022 07/31/2022 11:17 AM CDT Rule Out COVID-19 03/23/2023 03/23/2023 03/23/2023 6:30 PM BARREL ASSEMBLER HELPER COVID-19 03/23/2023 03/23/2023 04/13/2023 11:4 0 PM BARREL ASSEMBLER HELPER Rule Out COVID-19 06/05/2023 06/05/2023 06/05/2023 5:53 PM CDT Rule Out COVID-19 11/06/2023 11/06/2023 11/06/2023 11:05 PM CDT Rule Out COVID-19 11/20/2023 11/20/2023 11/20/2023 6:43 PM CDT Rule Out COVID-19 12/27/2023 12/27/2023 12/29/2023 1:37 PM CDT Rule Out COVID-19 03/01/2024 03/01/2024 03/01/2024 1:11 PM BARREL ASSEMBLER HELPER Rule Out COVID-19 07/18/2024 07/18/2024 07/19/2024 5:52 PM CDT Rule Out COVID-19 10/17/2024 10/17/2024 10/17/2024 11:23 PM CDT Rule Out C-difficile 11/04/2024 11/04/2024 025 1:55 AM CDT Assessment Noted Time PHQ-9 Depression Total Score: 7 07/29/19 21 7:03 AM CDT documented as of this encounter Care Teams Meter Shop Superintendent Relationship Specialty [place] [address] [place] [address] PCP - General Family Practice 07/11/14 [place] [address] [place] [address] Assigned PCP 12/16/11 Kerry Bernal, INOCENCIO Personal Advocate & Liaison (PAL) 01/08/19 07/10/23 Ravi Barillas DPM [id number] [address] Assigned Musculoskeletal Provider 03/23/20 10/30/21 Christy Campuzano PA-C [address] [place] [address] 620182 Referring Physician Family Medicine 04/22/20 Hans Cannon MD [address] [place] [address] Resident Pulmonary Disease 04/22/20 Mitra Kendall, REMARKETING REP Lead Cyber Analyst Primary Care - CC 01/08/1901/12 Burt Jovel MD Internal Medicine 05/08/20 12/13/23 Estella Hassan, [facility] [address] [place] [address] Pharmacist Pharmacist 05/26/20 Reji Chavez MD [address] [place] [phone] Assigned Heart and Vascular Provider 05/18/20 10/30/21 Elaina Moreno MD [address] [place] [address] 262415 Assigned Surgical Provider 05/18/20 11/19/22 Elaina Moreno MD [address] [place] [address] [phone] Cardiovascular & Thoracic Surgery 08/06/20 Kelsi Hassan MD [address] [place] [address] Assigned Pulmonology Provider 06/28/21 02/05/22 John Webb MD [address] [address] Cardiovascular Disease 08/25/21 John Webb MD [address] 221005 Cardiovascular Disease 08/25/21 Estella Hassan, [facility] [address] [place] [address] Assigned MTM Pharmacist 09/05/21 Nav Hughes MD [address] [place] [address] Assigned Heart and Vascular Provider 10/31/21 09/03/23 Cassandra Mendoza MD ORTHOPAEDIC SURGERY [facility] [address] [address] Assigned Musculoskeletal Provider 10/31/21 08/13/22 Estella Hassan, [facility] [address] [place] [address] Assigned MTM Pharmacist 12/09/21 Mitra Kendall, [facility] Lead Cyber Analyst Primary Care - CC 01/26/2210/28 Lindsay Carey OD 3305 [facility] [place] [address] Ophthalmology 01/29/22 Ravi Brownlee MD [address] [address] Assigned Pulmonology Provider 02/06/22 09/03/23 Arabella Fishman MA Financial Resource Worker 02/22/22 02/23/22 Richard Kam MD 500 [place], [place] [address] Assigned Musculoskeletal Provider 08/14/22 Marisol Patel, [facility] [address] [id number] Pharmacist Pharmacist 11/22/22 01/09/23 [place] [address] [place], [address] 325747 Assigned Neuroscience Provider 01/01/23 12/03/24 Rosemarie Mcdowell, RN Basket Mender Diabetes Education 03/17/23 Ravi Brownlee MD [address] [place] [address] 414805 Assigned Heart and Vascular Provider 09/04/23 01/03/24 Mitra Kendall, [facility] Lead Cyber Analyst Primary Care - CC 12/12/23 Lizet Mann PA-C [address] [place] [address] Assigned Cancer Care Provider 01/04/24 Ravi Brownlee MD [address] [place] [address] Assigned Pulmonology Provider 01/04/24 Nav Hughes MD [address] [place] [address] [address] 211585 Assigned Heart and Vascular Provider 01/04/24 05/05/24 Manuel Ahn OD 6341 [facility] [place] 161282 Web Page Designer 01/05/24 Arabella Fishman MA Financial Resource Worker 01/06/24 03/19/24 Thalia Charles [facility] [address] [place], [place] [phone] Pharmacist Pharmacy 01/26/24 Gaurav Valenzuela APRN CIRCUS RIDER 606 [facility] [address] [place] [address] Assigned Sleep Provider 02/04/24 Manuel Ahn OD 6341 [place], [place] 651212 Assigned Surgical Provider 02/04/24 06/02/24 Debbie Mann MD 1600 [facility] 200 [place] [address] Cardiovascular Disease 02/24/24 Hakeem Chacko MBBS 2945 [place] [address] Assigned Rheumatology Provider 04/05/24 Debbie Mann MD 1600 [facility] 200 [place] [address] Assigned Heart and Vascular Provider 05/06/24 Timothy Tejada MD 6341 [place] [phone] Ophthalmology 05/29/24 Timothy Tejada MD [address]341 [place] [address] Assigned Surgical Provider 06/03/24 Elsie Roberts APRN CIRCUS RIDER 1600 [facility] [address] [address] Nurse Practitioner Pain Medicine 10/16/24 Cristy Morton MD 1440 [facility] [address] [place] [id number] Assigned Pediatric Specialist Provider 11/03/24 Georgie Anguiano PA-C [address] [address] Assigned Neuroscience Provider 12/04/24 documented as of this encounter
--- OUTSIDE RECORDS SUMMARY | 2024-12-06 00:28 | XMS_ITS | Encounter Summary ---
Author Organization [place] Address [address] [place] [address] Care Team Providers Care Olive Picker Name Role Phone Va Glez MD Primary Care Provider [phone] Va Glez MD Unavailable Kerry Bernal RN Unavailable [phone] Ravi Barillas DPM Unavailable [phone] Christy Campuzano PA-C Unavailable Hans Cannon MD Unavailable Mitra Kendall COMMUNITY HEALTH NURSE STAFF Unavailable [phone] Burt Jovel MD Unavailable [phone] Estella Hassan [facility] Unavailable [phone] Reji Chavez MD Unavailable [phone] Josh Cordero MD, Madhuri Unavailable [phone] Josh Cordero MD, Madhuri Unavailable [phone] Kelsi Hassan MD Unavailable [phone] John Webb MD Unavailable John Webb MD Unavailable [phone] Estella Hassan [facility] Unavailable [phone] Nav Hughes MD Unavailable [phone] Cassandra Mendoza MD Unavailable Estella Hassan RPH Unavailable Mitra Kendall COMMUNITY HEALTH NURSE STAFF Unavailable Aurelio Lindsay Kenzie OD Unavailable Ravi Brownlee MD Unavailable Kye Arabella MA Unavailable [phone] Richard Kam MD Unavailable Marisol Patel RPH Unavailable Gaby Vila DO Unavailable Rosemarie Mcdowell RN Unavailable Ravi Brownlee MD Unavailable Mitra Kendall COMMUNITY HEALTH NURSE STAFF Unavailable Lizet MannC Unavailable Ravi Brownlee MD Unavailable Nav Hughes MD Unavailable [phone] Manuel Ahn OD Unavailable Kye Arabella MA Unavailable [phone] Thalia Charles RP Unavailable Gaurav Valenzuela APRN RURAL MAIL CARRIER Unavailable Manuel hAn OD Unavailable Debbie Mann MD Unavailable Hakeem Chacko Unavailable Debbie Mann MD Unavailable Timothy Tejada MD Unavailable Timothy Tejada MD Unavailable Elsie Roberts APRN RURAL MAIL CARRIER Unavailable + Cristy Morton MD Unavailable Georgie Anguiano PA-C Unavailable [phone] Encounter Details Date Type Department Care Team (Late st Contact Info) Description 07/24/2020 MyC Medical Advice [facility] [address] [place] [phone] [place] [id number] [place] [address] Social History Tobacco Use Types Packs/Day [...] and Family Not on file 05/31/2019 Attends [employer] Not on file 05/30 Active Member [...] Answer Date Recorded PHQ-2 Score 2 07/28/2020 [facility] - Occupational Stress Questionnaire Answer [...] on file 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 Gender Identity Not on file Sexual [...] Description 12/11/2024 2:10 PM CDT Therapy Visit [facility] Rehabilitation Services [address] [place] [phone] Shanta Cooper PT 12/14/2024 11:20 AM CDT Office Visit [facility] [address] [place] [address] [place] [phone] Lizet Mann PA-C [address] [facility] [place] [address] 12/17/2024 2:10 PM CDT Office Visit [facility] Orthopedic [facility] 909 [facility] 4th [place] [address] Richard Kam MD [address] [place] [address] 12/19/2024 8:20 AM CDT Therapy Visit [address] [address] Shanta Cooper, PT 12/24/2024 5:00 PM CDT Therapy Visit [address] [address] Pattie Casillas, PT 12/25/2024 10:20 AM CDT Therapy Visit [address] [address] Shanta Cooper, PT 01/03/2025 1:00 PM CDT Office Visit [address] [phone] Estella Hassan, [facility] 30[address] [place] [address] 01/03/2025 1:30 PM CDT Office Visit [address] [phone] [place] [address] [place] [address] 01/08/2025 1:15 PM CDT Office Visit [address] [address] Hakeem Chacko MBBS [address] [place] [address] Scheduled Procedures Name Priority Associated Diagnoses Date/Ti me INJECTION, EPIDURAL, TRANSFO RAMINAL APPROACH Cervical radiculitis RELEASE, CARPAL TUNNEL, ENDOSCOPIC Right carpal tunnel syndrome documented as of this encounter Visit Diagnoses Not on filedocumented in this encounter Additional Health Concerns Infection Onset Date Last Indicated Resolved Time Rule Out COVID-19 06/22/2021 06/22/2021 06/23/2021 8:58 PM CDT Rule Out COVID-19 01/22/2022 01/22/2022 01/24/2022 1:05 PM LITHOGRAPHIC PRESS OPERATOR Rule Out COVID-19 01/25/2022 01/25/2022 01/25/2022 5:21 AM LITHOGRAPHIC PRESS OPERATOR Influenza 01/25/2022 01/25/2022 02/01/2022 11:4 1 PM LITHOGRAPHIC PRESS OPERATOR Rule Out COVID-19 07/29/2022 07/29/2022 07/31/2022 11:17 AM CDT Rule Out COVID-19 03/23/2023 03/23/2023 03/23/2023 6:30 PM LITHOGRAPHIC PRESS OPERATOR COVID-19 03/23/2023 03/23/2023 04/13/2023 11:4 0 PM LITHOGRAPHIC PRESS OPERATOR Rule Out COVID-19 06/05/2023 06/05/2023 06/05/2023 5:53 PM CDT Rule Out COVID-19 11/06/2023 11/06/2023 11/06/2023 11:05 PM CDT Rule Out COVID-19 11/20/2023 11/20/2023 11/20/2023 6:43 PM CDT Rule Out COVID-19 12/27/2023 12/27/2023 12/29/2023 1:37 PM CDT Rule Out COVID-19 03/01/2024 03/01/2024 03/01/2024 1:11 PM LITHOGRAPHIC PRESS OPERATOR Rule Out COVID-19 07/18/2024 07/18/2024 07/19/2024 5:52 PM CDT Rule Out COVID-19 10/17/2024 10/17/2024 10/17/2024 11:23 PM CDT Rule Out C-difficile 11/04/2024 11/04/2024 025 1:55 AM CDT Assessment Noted Time PHQ-9 Depression Total Score: 7 07/29/19 21 7:03 AM CDT documented as of this encounter Care Teams Olive Picker Relationship Specialty [place] [address] [place] [address] PCP - General Family Practice 07/11/14 [place] [address] [place] [address] Assigned PCP 12/16/11 Kerry Bernal RN Personal Advocate & Liaison (PAL) 01/08/19 07/10/23 Ravi Barillas DPM [id number] [place] [address] [address] [place] [address] Assigned Musculoskeletal Provider 03/23/20 10/30/21 Christy Campuzano PA-C [address] [place] [address] 714772 Referring Physician Family Medicine 04/22/20 Hans Cannon MD [address] [place] [address] Resident Pulmonary Disease 04/22/20 Mitra Kendall, COMMUNITY HEALTH NURSE STAFF Lead Central Office Installer Primary Care - CC 01/08/1901/12 Burt Jovel MD Internal Medicine 05/08/20 12/13/23 Estella Hassan, [facility] 30[address] [place] [address] Pharmacist Pharmacist 05/26/20 Reji Chavez MD [address] [place] [phone] Assigned Heart and Vascular Provider 05/18/20 10/30/21 Elaina Moreno MD [address] [place] [address] Assigned Surgical Provider 05/18/20 11/19/22 Elaina Moreno MD [address] [place] [address] Cardiovascular & Thoracic Surgery 08/06/20 Kelsi Hassan MD [address] [place] [address] Assigned Pulmonology Provider 06/28/21 02/05/22 John Webb MD [address] [address] Cardiovascular Disease 08/25/21 John Webb MD [address] [place] [address] Cardiovascular Disease 08/25/21 Estella Hassan, [facility] 30[address] [place] [address] Assigned MTM Pharmacist 09/05/21 Nav Hughes MD [address] [place] [address] Assigned Heart and Vascular Provider 10/31/21 09/03/23 Cassandra Mendoza MD ORTHOPAEDIC SURGERY [address] [address] Assigned Musculoskeletal Provider 10/31/21 08/13/22 Estella Hassan, [facility] 30[address] [place] [address] Assigned MTM Pharmacist 12/09/21 Mitra Kendall, [facility] Lead Central Office Installer Primary Care - CC 01/26/2210/28 Lindsay Carey OD 3305 [facility] [place] [address] Ophthalmology 01/29/22 Ravi Brownlee MD 420 [facility] 276 [place] [address] Assigned Pulmonology Provider 02/06/22 09/03/23 Arabella Fishman MA Financial Resource Worker 02/22/22 02/23/22 Richard Kam MD 500 [place] [address] Assigned Musculoskeletal Provider 08/14/22 Marisol Patel, [facility] 1440 [facility] [address] [phone] Pharmacist Pharmacist 11/22/22 01/09/23 [place] [address] [place] PENA, [address] [address] Assigned Neuroscience Provider 01/01/23 12/03/24 Rosemarie Mcdowell, RN Floorworker Diabetes Education 03/17/23 Ravi Brownlee MD [address] [place] [address] Assigned Heart and Vascular Provider 09/04/23 01/03/24 Mitra Kendall, [facility] Lead Central Office Installer Primary Care - CC 12/12/23 Lizet Mann PA-C [address] [place] [address] Assigned Cancer Care Provider 01/04/24 Ravi Brownlee MD [address] [place] [address] Assigned Pulmonology Provider 01/04/24 Nav Hughes MD 6405 [facility] [address] [place] [address] Assigned Heart and Vascular Provider 01/04/24 05/05/24 Manuel Ahn OD 6341 [facility] [address] [place] [address] Boiler Operators Supervisor 01/05/24 Arabella Fishman MA Financial Resource Worker 01/06/24 03/19/24 Melvin Thalia [facility] [address] [place] [address] Pharmacist Pharmacy 01/26/24 Gaurav Valenzuela APRN RURAL MAIL CARRIER [address] 24[address] [facility] 106 [place], [place] [address] Assigned Sleep Provider 02/04/24 Manuel Ahn OD 6341 [place], [place] [address] Assigned Surgical Provider 02/04/24 06/02/24 Debbie Mann MD 1600 [facility] 200 [place] [address] Cardiovascular Disease 02/24/24 Hakeem Chacko MBBS 2945 [place] [address] Assigned Rheumatology Provider 04/05/24 Debbie Mann MD 1600 [facility] 200 [place] [address] Assigned Heart and Vascular Provider 05/06/24 Timothy Tejada MD 6341 [place] [phone] Ophthalmology 05/29/24 Timothy Tjeada MD 6341 [place] [address] Assigned Surgical Provider 06/03/24 Elsie Roberts APRN RURAL MAIL CARRIER 1600 [facility] [address] [address] Nurse Practitioner Pain Medicine 10/16/24 Cristy Morton MD 1440 [place] [address] Assigned Pediatric Specialist Provider 11/03/24 Georgie Anguiano PA-C [address] [address] Assigned Neuroscience Provider 12/04/24 documented as of this encounter
--- OUTSIDE RECORDS SUMMARY | 2024-12-06 00:28 | XMS_ITS | Encounter Summary ---
Author Organization [place] Address [address] [place] [address] Care Team Providers Care Blanket Washer Name Role Phone Va Glez MD Primary Care Provider Va Glez MD Unavailable Kerry Bernal RN Unavailable Ravi Barillas DPM Unavailable [phone] Christy Campuzano PA-C Unavailable [phone] Hans Cannon MD Unavailable [phone] Mitra Kendall SHIFT NURSE MANAGER Unavailable [phone] Burt Jovel MD Unavailable [phone] Estella Hassan [facility] Unavailable Reji Chavez MD Unavailable Josh Cordero MD, Madhuri Unavailable [phone] Josh Cordero MD, Madhuri Unavailable [phone] Kelsi Hassan MD Unavailable [phone] John Webb MD Unavailable [phone] John Webb MD Unavailable Estella Hassan [facility] Unavailable [phone] Nav Hughes MD Unavailable [phone] Cassandra Mendoza MD Unavailable Estella Hassan RPH Unavailable Mitra Kendall SHIFT NURSE MANAGER Unavailable Aurelio Lindsay Kenzie OD Unavailable Ravi Brownlee MD Unavailable Kye Arabella MA Unavailable [phone] Richard Kam MD Unavailable Marisol Patel RPH Unavailable Gaby Vila DO Unavailable Rosemarie Mcdowell RN Unavailable Ravi Brownlee MD Unavailable Mitra Kendall SHIFT NURSE MANAGER Unavailable Lizet MannC Unavailable Ravi Brownlee MD Unavailable Nav Hughes MD Unavailable [phone] Manuel Ahn OD Unavailable Kye Arabella MA Unavailable [phone] Thalia Charles RP Unavailable Gaurav Valenzuela APRN ENTRY TABLE OPERATOR Unavailable Manuel Ahn OD Unavailable Debbie Mann MD Unavailable Hakeem Chacko Unavailable Debbie Mann MD Unavailable Timothy Tejada MD Unavailable Timothy Tejada MD Unavailable Elsie Roberts APRN ENTRY TABLE OPERATOR Unavailable + Cristy Morton MD Unavailable Georgie Anguiano PA-C Unavailable Encounter Details Date Type Department Care Team (Late st Contact Info) Description 07/18/2020 MyC Medical Advice [facility] [address] [address] Hans Cannon MD [address] [place] [place], [place] [id number] Social History Tobacco Use Types Packs/Day Years [...] Answer Date Recorded PHQ-2 Score 0 06/05/2020 [facility] [place] of Occupat ional Health - Occupational Stress [...] on file Legal Sex 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 [place] [address] 12/17/2024 2:10 PM CDT Office Visit [facility] 909 [facility] 4th [place] [address] Richard Kam MD [address] [place] [address] 12/19/2024 8:20 AM CDT Therapy Visit [address] [address] Shanta Cooper, PT 12/24/2024 5:00 PM CDT Therapy Visit [address] [address] Pattie Casillas, PT 12/25/2024 10:20 AM CDT Therapy Visit [address] [address] Shanta Cooper, PT 01/03/2025 1:00 PM CDT Office Visit [address] [phone] Estella Hassan, [facility] [address] [place] [address] 01/03/2025 1:30 PM CDT Office Visit [address] [phone] [place] [id number] [place] [address] 01/08/2025 1:15 PM CDT Office Visit [address] [phone] Hakeem Chacko MBBS [address] [place] [address] [place] [address] Scheduled Procedures Name Priority Associated Diagnoses Date/Ti me INJECTION, EPIDURAL, TRANSFO RAMINAL APPROACH Cervical radiculitis RELEASE, CARPAL TUNNEL, ENDOSCOPIC Right carpal tunnel syndrome documented as of this encounter Visit Diagnoses Not on filedocumented in this encounter Additional Health Concerns Infection Onset Date Last Indicated Resolved Time Rule Out COVID-19 06/22/2021 06/22/2021 06/23/2021 8:58 PM CDT Rule Out COVID-19 01/22/2022 01/22/2022 01/24/2022 1:05 PM BLOOD BANK ASSISTANT Rule Out COVID-19 01/25/2022 01/25/2022 01/25/2022 5:21 AM BLOOD BANK ASSISTANT Influenza 01/25/2022 01/25/2022 02/01/2022 11:4 1 PM BLOOD BANK ASSISTANT Rule Out COVID-19 07/29/2022 07/29/2022 07/31/2022 11:17 AM CDT Rule Out COVID-19 03/23/2023 03/23/2023 03/23/2023 6:30 PM BLOOD BANK ASSISTANT COVID-19 03/23/2023 03/23/2023 04/13/2023 11:4 0 PM BLOOD BANK ASSISTANT Rule Out COVID-19 06/05/2023 06/05/2023 06/05/2023 5:53 PM CDT Rule Out COVID-19 11/06/2023 11/06/2023 11/06/2023 11:05 PM CDT Rule Out COVID-19 11/20/2023 11/20/2023 11/20/2023 6:43 PM CDT Rule Out COVID-19 12/27/2023 12/27/2023 12/29/2023 1:37 PM CDT Rule Out COVID-19 03/01/2024 03/01/2024 03/01/2024 1:11 PM BLOOD BANK ASSISTANT Rule Out COVID-19 07/18/2024 07/18/2024 07/19/2024 5:52 PM CDT Rule Out COVID-19 10/17/2024 10/17/2024 10/17/2024 11:23 PM CDT Rule Out C-difficile 11/04/2024 11/04/2024 025 1:55 AM CDT Assessment Noted Time PHQ-9 Depression Total Score: 2 06/06/19 21 12:47 PM CDT documented as of this encounter Care Teams Blanket Washer Relationship Specialty [place] [address] [place] [address] PCP - General Family Practice 07/11/14 [place] [address] [place] [address] Assigned PCP 12/16/11 Kerry Bernal RN Personal Advocate & Liaison (PAL) 01/08/19 07/10/23 Ravi Barillas DPM [address] [address] Assigned Musculoskeletal Provider 03/23/20 10/30/21 Christy Campuzano PA-C [address] [place] [address] 643402 Referring Physician Family Medicine 04/22/20 Hans Cannon MD [address] [place] [address] Resident Pulmonary Disease 04/22/20 Mitra Kendall, SHIFT NURSE MANAGER Lead Dry Cleaning Checker Primary Care - CC 01/08/1901/12 Burt Jovel MD Internal Medicine 05/08/20 12/13/23 Estella Hassan, [facility] 30[address] [place] [address] Pharmacist Pharmacist 05/26/20 Reji Chavez MD 6405 [facility] [address] [place] [phone] Assigned Heart and Vascular Provider 05/18/20 10/30/21 Elaina Moreno MD [address] [place] [address] 269135 Assigned Surgical Provider 05/18/20 11/19/22 Elaina Moreno MD [address] [place] [address] 260205 Cardiovascular & Thoracic Surgery 08/06/20 Kelsi Hassan MD [address] [facility] [place], [place] 7[address] Assigned Pulmonology Provider 06/28/21 02/05/22 John Webb MD [address] 936605 Cardiovascular Disease 08/25/21 John Webb MD [address] 257975 Cardiovascular Disease 08/25/21 Estella Hassan, [facility] [address] [place] [address] Assigned MTM Pharmacist 09/05/21 Nav Hughes MD [address] [place] [address] Assigned Heart and Vascular Provider 10/31/21 09/03/23 Cassandra Mendoza MD ORTHOPAEDIC SURGERY [facility] [address] [address] Assigned Musculoskeletal Provider 10/31/21 08/13/22 Estella Hassan, [facility] [address] [place] [address] Assigned MTM Pharmacist 12/09/21 Mitra Kendall, [facility] Lead Dry Cleaning Checker Primary Care - CC 01/26/2210/28 Lindsay Carey OD [facility]5 [facility] [address] [place]O [address] Ophthalmology 01/29/22 Ravi Brownlee MD [address] 045565 Assigned Pulmonology Provider 02/06/22 09/03/23 Arabella Fishman MA Financial Resource Worker 02/22/22 02/23/22 Richard Kam MD 500 [place], [place] 533555 Assigned Musculoskeletal Provider 08/14/22 Marisol Patel, [facility] [address] [id number] Pharmacist Pharmacist 11/22/22 01/09/23 [place] [address] [place] PE[place], [address] [address] Assigned Neuroscience Provider 01/01/23 12/03/24 Rosemarie Mcdowell, RN Therapy Manager Diabetes Education 03/17/23 Ravi Brownlee MD [address] [place] [address] [phone] Assigned Heart and Vascular Provider 09/04/23 01/03/24 Mitra Kendall, [facility] Lead Dry Cleaning Checker Primary Care - CC 12/12/23 Lizet Mann PA-C [address] [place] [address] Assigned Cancer Care Provider 01/04/24 Ravi Brownlee MD [address] [place] [address] Assigned Pulmonology Provider 01/04/24 Nav Hughes MD [address] [place] [address] [address] [address] Assigned Heart and Vascular Provider 01/04/24 05/05/24 Manuel Ahn OD 6341 [facility] [place] [address] Environmental Services Project Manager 01/05/24 Arabella Fishman MA Financial Resource Worker 01/06/24 03/19/24 Thalia Charles [facility] [address] [place], [place] [phone] Pharmacist Pharmacy 01/26/24 Gaurav Valenzuela APRN ENTRY TABLE OPERATOR 606 [facility] 106 [place] [address] Assigned Sleep Provider 02/04/24 Manuel Ahn OD 6341 [place], [place] 899692 Assigned Surgical Provider 02/04/24 06/02/24 Debbie Mann MD 1600 [facility] 200 [place] [address] Cardiovascular Disease 02/24/24 Hakeem Chacko MBBS 2945 [place] [address] Assigned Rheumatology Provider 04/05/24 Debbie Mann MD 1600 [facility] 200 [place] [address] Assigned Heart and Vascular Provider 05/06/24 Timothy Tejada MD 6341 [place] [phone] Ophthalmology 05/29/24 Timothy Tejada MD 6341 [place] [address] Assigned Surgical Provider 06/03/24 Elsie Roberts APRN ENTRY TABLE OPERATOR 1600 [facility] [place] [address] [address] Nurse Practitioner Pain Medicine 10/16/24 Cristy Morton MD [facility]0 [facility] [address] [id number] Assigned Pediatric Specialist Provider 11/03/24 Georgie Anguiano PA-C [address] [address] Assigned Neuroscience Provider 12/04/24 documented as of this encounter
--- OUTSIDE RECORDS SUMMARY | 2024-12-06 00:29 | XMS_ITS | Encounter Summary ---
Author Organization [place] Address [address] [place] [address] Care Team Providers Care Hand Striper Name Role Phone Va Glez MD Primary Care Provider Va Glez MD Unavailable Kerry Brenal RN Unavailable [phone] Ravi Barillas DPM Unavailable [phone] Christy Campuzano PA-C Unavailable Hans Cannon MD Unavailable Mitra Kendall TRANSPORTATION SOLUTIONS MANAGER Unavailable [phone] Burt Jovel MD Unavailable Estella Hassan [facility] Unavailable [phone] Reji Chavez MD Unavailable Josh Cordero MD, Madhuri Unavailable [phone] Josh Cordero MD, Madhuri Unavailable [phone] Kelsi Hassan MD Unavailable [phone] John Webb MD Unavailable [phone] John Webb MD Unavailable Estella Hassan [facility] Unavailable Nav Hughes MD Unavailable [phone] Cassandra Mendoza MD Unavailable Estella Hassan RPH Unavailable Mitra Kendall TRANSPORTATION SOLUTIONS MANAGER Unavailable Aurelio Lindsay Kenzie OD Unavailable Ravi Brownlee MD Unavailable Kye Arabella MA Unavailable [phone] Richard Kam MD Unavailable Marisol Patel RPH Unavailable Gaby Vila DO Unavailable Rosemarie Mcdowell RN Unavailable Ravi Brownlee MD Unavailable Mitra Kendall TRANSPORTATION SOLUTIONS MANAGER Unavailable Lizet MannC Unavailable Ravi Brownlee MD Unavailable Nav Hughes MD Unavailable [phone] Manuel Ahn OD Unavailable Kye Arabella MA Unavailable [phone] Thalia Charles RP Unavailable Gaurav Valenzuela APRN VETERINARY EPIDEMIOLOGIST Unavailable Manuel Ahn OD Unavailable Debbie Mann MD Unavailable Hakeem Chacko Unavailable Debbie Mann MD Unavailable Timothy Tejada MD Unavailable Timothy Tejada MD Unavailable Elsie Roberts APRN VETERINARY EPIDEMIOLOGIST Unavailable + Cristy Morton MD Unavailable Georgie Anguiano PA-C Unavailable [phone] Encounter Details Date Type Department Care Team (Late st Contact Info) Description 08/05/[address] [facility] 909 [facility] [place] [address] [address]N COURT BAILIFF OR SHERIFF 420 [facility] 207 [place] [address] Social History Tobacco Use Types [...] Administer PHQ-9 if positive 1 08/06/2020 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 Gender Identity Not on file Sexual Orientation [...] Therapy Visit [facility] [address] [place] [address] Shanta Cooper, MOIZ 12/14/2024 11:20 AM CDT Office Visit [facility] [address] [place] [address] Lizet Mann PA-C [address] [place] [address] 12/17/2024 2:10 PM CDT Office Visit [facility] Orthopedic [facility] 909 [facility] 4th [place] [address] Richard Kam MD 500 [place] [address] 12/19/2024 8:20 AM CDT Therapy Visit [address] [place] [address] Shanta Cooper, PT 12/24/2024 5:00 PM CDT Therapy Visit [address] [address] Pattie Casillas, PT 12/25/2024 10:20 AM CDT Therapy Visit [address] [address] Shanta Cooper, PT 01/03/2025 1:00 PM CDT Office Visit [address] [phone] Estella Hassan, [facility] 3033 [place] [address] 01/03/2025 1:30 PM CDT Office Visit [address] [phone] Va Glez MD [address] [place] [address] [id number] 01/08/2025 1:15 PM CDT Office Visit [facility] 2945 [facility] [address] [place] [address] Hakeem Chacko MBBS 9365 [place] [address] Scheduled Procedures Name Priority Associated Diagnoses Date/Ti me INJECTION, EPIDURAL, TRANSFO RAMINAL APPROACH Cervical radiculitis RELEASE, CARPAL TUNNEL, ENDOSCOPIC Right carpal tunnel syndrome documented as of this encounter Visit Diagnoses Not on filedocumented in this encounter Additional Health Concerns Infection Onset Date Last Indicated Resolved Time Rule Out COVID-19 06/22/2021 06/22/2021 06/23/2021 8:58 PM CDT Rule Out COVID-19 01/22/2022 01/22/2022 01/24/2022 1:05 PM INSPECTOR HAIRSPRING Rule Out COVID-19 01/25/2022 01/25/2022 01/25/2022 5:21 AM INSPECTOR HAIRSPRING Influenza 01/25/2022 01/25/2022 02/01/2022 11:4 1 PM INSPECTOR HAIRSPRING Rule Out COVID-19 07/29/2022 07/29/2022 07/31/2022 11:17 AM CDT Rule Out COVID-19 03/23/2023 03/23/2023 03/23/2023 6:30 PM INSPECTOR HAIRSPRING COVID-19 03/23/2023 03/23/2023 04/13/2023 11:4 0 PM INSPECTOR HAIRSPRING Rule Out COVID-19 06/05/2023 06/05/2023 06/05/2023 5:53 PM CDT Rule Out COVID-19 11/06/2023 11/06/2023 11/06/2023 11:05 PM CDT Rule Out COVID-19 11/20/2023 11/20/2023 11/20/2023 6:43 PM CDT Rule Out COVID-19 12/27/2023 12/27/2023 12/29/2023 1:37 PM CDT Rule Out COVID-19 03/01/2024 03/01/2024 03/01/2024 1:11 PM INSPECTOR HAIRSPRING Rule Out COVID-19 07/18/2024 07/18/2024 07/19/2024 5:52 PM CDT Rule Out COVID-19 10/17/2024 10/17/2024 10/17/2024 11:23 PM CDT Rule Out C-difficile 11/04/2024 11/04/2024 025 1:55 AM CDT Assessment Noted Time PHQ-9 Depression Total Score: 7 07/29/19 21 7:03 AM CDT documented as of this encounter Care Teams Hand Striper Relationship Specialty [place] [address] [place] [address] PCP - General Family Practice 07/11/14 [place] [address] [place] [address] Assigned PCP 12/16/11 Kerry Bernal RN Personal Advocate & Liaison (PAL) 01/08/19 07/10/23 Ravi Barillas DPM [address] 162337 Assigned Musculoskeletal Provider 03/23/20 10/30/21 Christy Campuzano PA-C [address] [place] [address] 682862 Referring Physician Family Medicine 04/22/20 Hans Cannon MD [address] [place] [address] Resident Pulmonary Disease 04/22/20 Mitra Kendall, TRANSPORTATION SOLUTIONS MANAGER Lead Real Estate Transaction Manager Primary Care - CC 01/08/1901/12 Burt Jovel MD Internal Medicine 05/08/20 12/13/23 Estella Hassan, [facility] 30[address] [place] [address] Pharmacist Pharmacist 05/26/20 Reji Chavez MD 6405 [facility] GEOVANNY [address] [phone] Assigned Heart and Vascular Provider 05/18/20 10/30/21 Elaina Moreno MD [address] [place] [address] Assigned Surgical Provider 05/18/20 11/19/22 Elaina Moreno MD [address] [place] [address] Cardiovascular & Thoracic Surgery 08/06/20 Kelsi Hassan MD [address] [place], [place] [address] [place] [address] Assigned Pulmonology Provider 06/28/21 02/05/22 John Webb MD [address] [place] [address] Cardiovascular Disease 08/25/21 John Webb MD [address] 506845 Cardiovascular Disease 08/25/21 Estella Hassan [facility] [address] [place] [address] Assigned MTM Pharmacist 09/05/21 Nav Hughes MD [address] [place] [address] Assigned Heart and Vascular Provider 10/31/21 09/03/23 Cassandra Mendoza MD ORTHOPAEDIC SURGERY [facility]2 [address] [address] Assigned Musculoskeletal Provider 10/31/21 08/13/22 Estella Hassan, [facility] [address] [place] [address] Assigned MTM Pharmacist 12/09/21 Mitra Kendall, [facility] Lead Real Estate Transaction Manager Primary Care - CC 01/26/2210/28 Lindsay Carey OD [address] [place] [address] [address] [address] Ophthalmology 01/29/22 Ravi Brownlee MD [address] [address] Assigned Pulmonology Provider 02/06/22 09/03/23 Arabella Fishman MA Financial Resource Worker 02/22/22 02/23/22 Richard Kam MD 500 [place] [address] Assigned Musculoskeletal Provider 08/14/22 Marisol Patel, [facility] [address] [phone] Pharmacist Pharmacist 11/22/22 01/09/23 [place] [address] [place] [address] [address] [address] Assigned Neuroscience Provider 01/01/23 12/03/24 Rosemarie Mcdowell RN Recreational Assistant Diabetes Education 03/17/23 Ravi Brownlee MD [address] 123025 Assigned Heart and Vascular Provider 09/04/23 01/03/24 Mitra Kendall, [facility] Lead Real Estate Transaction Manager Primary Care - CC 12/12/23 Lizet Mann PA-C [address] [place] [address] Assigned Cancer Care Provider 01/04/24 Ravi Brownlee MD [address] [place] [address] Assigned Pulmonology Provider 01/04/24 Nav Hughes MD 6405 [facility] [address] [address] Assigned Heart and Vascular Provider 01/04/24 05/05/24 Manuel Ahn OD 6341 [place] [address] Survey Research Analyst 01/05/24 Arabella Fishman MA Financial Resource Worker 01/06/24 03/19/24 Melvin Thalia, [facility] [address] [place], [place] [phone] Pharmacist Pharmacy 01/26/24 Gaurav Valenzuela APRN VETERINARY EPIDEMIOLOGIST 606 [facility] 106 [place], [place] 597434 Assigned Sleep Provider 02/04/24 Manuel Ahn OD 6341 [place], [place] 430342 Assigned Surgical Provider 02/04/24 06/02/24 Debbie Mann MD [address] [address] Cardiovascular Disease 02/24/24 Hakeem Chacko MBBS 2945 [place] [address] Assigned Rheumatology Provider 04/05/24 Debbie Mann MD [address] [id number] Assigned Heart and Vascular Provider 05/06/24 Timothy Tejada MD 6341 [facility] [place] [phone] Ophthalmology 05/29/24 Timothy Tejada MD 6341 [facility] [phone] Assigned Surgical Provider 06/03/24 Elsie Roberts APRN VETERINARY EPIDEMIOLOGIST 1600 [facility] [address] [address] Nurse Practitioner Pain Medicine 10/16/24 Cristy Morton MD [facility] SHANKAR ROMO [id number] Assigned Pediatric Specialist Provider 11/03/24 Georgie Anguiano PA-C [address] 559135 Assigned Neuroscience Provider 12/04/24 documented as of this encounter
--- OUTSIDE RECORDS SUMMARY | 2024-12-06 00:29 | XMS_ITS | Encounter Summary ---
Author Organization [place] Address [address] [place] [address] Care Team Providers Care Admeasurer Name Role Phone Va Glez MD Primary Care Provider Va Glez MD Unavailable Kerry Bernal RN Unavailable [phone] Ravi Barillas DPM Unavailable [phone] Christy Campuzano PA-C Unavailable Hans Cannon MD Unavailable Mitra Kendall WEB SEARCH EVALUATOR Unavailable Burt Jovel MD Unavailable [phone] Estella Hassan [facility] Unavailable Reji Chavez MD Unavailable Josh Cordero MD, Madhuri Unavailable [phone] Josh Cordero MD, Madhuri Unavailable [phone] Kelsi Hassan MD Unavailable [phone] John Webb MD Unavailable John Webb MD Unavailable [phone] Estella Hassan [facility] Unavailable Nav Hughes MD Unavailable [phone] Cassandra Mendoza MD Unavailable Estella Hassan RPH Unavailable Mitra Kendall WEB SEARCH EVALUATOR Unavailable Aurelio Lindsay Kenzie OD Unavailable Ravi Brownlee MD Unavailable Kye Arabella MA Unavailable [phone] Richard Kam MD Unavailable Marisol Patel RPH Unavailable Gaby Vila DO Unavailable Rosemarie Mcdowell RN Unavailable Ravi Brownlee MD Unavailable Mitra Kendlal WEB SEARCH EVALUATOR Unavailable Lizet MannC Unavailable Ravi Brownlee MD Unavailable Nav Hughes MD Unavailable [phone] Manuel Ahn OD Unavailable Kye Arabella MA Unavailable [phone] Thalia Charles RP Unavailable Gaurav Valenzuela APRN TRANSIT COACH OPERATOR Unavailable Manuel Ahn OD Unavailable Debbie Mann MD Unavailable Hakeem Chacko Unavailable Debbie Mann MD Unavailable Timothy Tejada MD Unavailable Timothy Tejada MD Unavailable Elsie Roberts APRN TRANSIT COACH OPERATOR Unavailable + Cristy Morton MD Unavailable Georgie Anguiano PA-C Unavailable Encounter Details Date Type Department Care Team (Late st Contact Info) Description 07/27/2020 MyC Medical Advice [address] [address] [facility] [address] [place] [address] Social History Tobacco Use Types Packs/Day Years [...] and Family Not on file 05/31/2019 Attends [employer]ood[employer] Services Not on file 05/30 Active Member [...] Answer Date Recorded PHQ-2 Score 2 07/28/2020 [facility] [place] of Occupat ional Health - Occupational Stress [...] on file 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 Gender Identity Not on file Sexual [...] Description 12/11/2024 2:10 PM CDT Therapy Visit [facility] [address] [place] [phone] Shanta Cooper PT 12/14/2024 11:20 AM CDT Office Visit [facility] [address] [place] [phone] Lizet Mann PA-C [address] [facility] [address] 12/17/2024 2:10 PM CDT Office Visit [facility] Orthopedic [facility] [address] [facility] 4th [place] [address] Richard Kam MD [address] [place] [address] 12/19/2024 8:20 AM CDT Therapy Visit [address] [address] Shanta Cooper, PT 12/24/2024 5:00 PM CDT Therapy Visit [address] [address] Pattie Casillas, PT 12/25/2024 10:20 AM CDT Therapy Visit [address] [address] Shanta Cooper, PT 01/03/2025 1:00 PM CDT Office Visit [address] [phone] Estella Hassan, [facility] [address] [place] [address] 01/03/2025 1:30 PM CDT Office Visit [address] [phone] Va Glez MD [address] [place] [id number] 01/08/2025 1:15 PM CDT Office Visit [address] [phone] Hakeem Chacko MBBS [address] [place] [address] Scheduled Procedures Name Priority Associated Diagnoses Date/Ti me INJECTION, EPIDURAL, TRANSFO RAMINAL APPROACH Cervical radiculitis RELEASE, CARPAL TUNNEL, ENDOSCOPIC Right carpal tunnel syndrome documented as of this encounter Visit Diagnoses Not on filedocumented in this encounter Additional Health Concerns Infection Onset Date Last Indicated Resolved Time Rule Out COVID-19 06/22/2021 06/22/2021 06/23/2021 8:58 PM CDT Rule Out COVID-19 01/22/2022 01/22/2022 01/24/2022 1:05 PM DENTAL APPLIANCE REPAIRER Rule Out COVID-19 01/25/2022 01/25/2022 01/25/2022 5:21 AM DENTAL APPLIANCE REPAIRER Influenza 01/25/2022 01/25/2022 02/01/2022 11:4 1 PM DENTAL APPLIANCE REPAIRER Rule Out COVID-19 07/29/2022 07/29/2022 07/31/2022 11:17 AM CDT Rule Out COVID-19 03/23/2023 03/23/2023 03/23/2023 6:30 PM DENTAL APPLIANCE REPAIRER COVID-19 03/23/2023 03/23/2023 04/13/2023 11:4 0 PM DENTAL APPLIANCE REPAIRER Rule Out COVID-19 06/05/2023 06/05/2023 06/05/2023 5:53 PM CDT Rule Out COVID-19 11/06/2023 11/06/2023 11/06/2023 11:05 PM CDT Rule Out COVID-19 11/20/2023 11/20/2023 11/20/2023 6:43 PM CDT Rule Out COVID-19 12/27/2023 12/27/2023 12/29/2023 1:37 PM CDT Rule Out COVID-19 03/01/2024 03/01/2024 03/01/2024 1:11 PM DENTAL APPLIANCE REPAIRER Rule Out COVID-19 07/18/2024 07/18/2024 07/19/2024 5:52 PM CDT Rule Out COVID-19 10/17/2024 10/17/2024 10/17/2024 11:23 PM CDT Rule Out C-difficile 11/04/2024 11/04/2024 025 1:55 AM CDT Assessment Noted Time PHQ-9 Depression Total Score: 7 07/29/19 21 7:03 AM CDT documented as of this encounter Care Teams Admeasurer Relationship Specialty [place] [address] [place] [address] PCP - General Family Practice 07/11/14 [place] [address] [place] [address] Assigned PCP 12/16/11 Kerry Bernal RN Personal Advocate & Liaison (PAL) 01/08/19 07/10/23 Ravi Barillas DPM [id number] [place] [address] 300 [place] [address] Assigned Musculoskeletal Provider 03/23/20 10/30/21 Christy Campuzano PA-C [address] [place] [address] 056822 Referring Physician Family Medicine 04/22/20 Hans Cannon MD [address] [place] [address] Resident Pulmonary Disease 04/22/20 Mitra Kendall, WEB SEARCH EVALUATOR Lead Director Biologics Primary Care - CC 01/08/1901/12 Burt Jovel MD Internal Medicine 05/08/20 12/13/23 Estella Hassan, [facility] [address] [place] [address] Pharmacist Pharmacist 05/26/20 Reji Chavez MD [address] [facility] [address] [place] [address] Assigned Heart and Vascular Provider 05/18/20 10/30/21 Elaina Moreno MD [address] [place] [address] Assigned Surgical Provider 05/18/20 11/19/22 Elaina Moreno MD [address] [place] [address] Cardiovascular & Thoracic Surgery 08/06/20 Kelsi Hassan MD [address] [place] [address] Assigned Pulmonology Provider 06/28/21 02/05/22 John Webb MD [address] [address] Cardiovascular Disease 08/25/21 John Webb MD [address] 263545 Cardiovascular Disease 08/25/21 Estella Hassan, [facility] [address] [place] [address] Assigned MTM Pharmacist 09/05/21 Nav Hughes MD [address] [place] [address] Assigned Heart and Vascular Provider 10/31/21 09/03/23 Cassandra Mendoza MD ORTHOPAEDIC SURGERY [address] [address] Assigned Musculoskeletal Provider 10/31/21 08/13/22 Estella Hassan, [facility] [address] [place] [address] Assigned MTM Pharmacist 12/09/21 Mitra Kendall, [facility] Lead Director Biologics Primary Care - CC 01/26/2210/28 Lindsay Carey OD 3305 [facility] [place] [address] Ophthalmology 01/29/22 Ravi Brownlee MD 420 [facility] 276 [place] [address] Assigned Pulmonology Provider 02/06/22 09/03/23 Arabella Fishman MA Financial Resource Worker 02/22/22 02/23/22 Richard Kam MD 500 [place] [address] Assigned Musculoskeletal Provider 08/14/22 Marisol Patel, [facility] [address] [place] [address] Pharmacist Pharmacist 11/22/22 01/09/23 [place] [address] [place], [address] [address] Assigned Neuroscience Provider 01/01/23 12/03/24 Rosemarie Mcdowell, RN Wind Turbine Machinist Diabetes Education 03/17/23 Ravi Brownlee MD [address] [place] [address] 163215 Assigned Heart and Vascular Provider 09/04/23 01/03/24 Mitra Kendall, WEB SEARCH EVALUATOR Lead Director Biologics Primary Care - CC 12/12/23 Lizet Mann PA-C [address] [place], [place] [address] [address] Assigned Cancer Care Provider 01/04/24 Ravi Brownlee MD [address] [place] [address] Assigned Pulmonology Provider 01/04/24 Nav Hughes MD [address] [place] [address] [address] [place] [address] Assigned Heart and Vascular Provider 01/04/24 05/05/24 Manuel Ahn OD 6341 [facility] [place] [address] Product Owner 01/05/24 Arabella Fishman MA Financial Resource Worker 01/06/24 03/19/24 Thalia Charles [facility] [address] [place] [address] Pharmacist Pharmacy 01/26/24 Gaurav Valenzuela APRN TRANSIT COACH OPERATOR [address] [facility] 106 [place], [place] [address] Assigned Sleep Provider 02/04/24 Manuel Ahn OD 6341 [place], [place] 757132 Assigned Surgical Provider 02/04/24 06/02/24 Debbie Mann MD 1600 [facility] 200 [place] [address] Cardiovascular Disease 02/24/24 Hakeem Chacko MBBS 2945 [place] [address] Assigned Rheumatology Provider 04/05/24 Debbie Mann MD 1600 [facility] 200 [place] [address] Assigned Heart and Vascular Provider 05/06/24 Timothy Tejada MD 6341 [place] [address] Ophthalmology 05/29/24 Timothy Tejada MD 6341 [place] [address] Assigned Surgical Provider 06/03/24 Elsie Roberts APRN TRANSIT COACH OPERATOR 1600 [facility] [place] [address] [place] [address] Nurse Practitioner Pain Medicine 10/16/24 Cristy Morton MD 1440 [facility] [place] [address] Assigned Pediatric Specialist Provider 11/03/24 Georgie Anguiano PA-C [address] [address] Assigned Neuroscience Provider 12/04/24 documented as of this encounter
--- OUTSIDE RECORDS SUMMARY | 2024-12-06 00:29 | XMS_ITS | Encounter Summary ---
Author Organization [place] Address [address] [place] [address] Care Team Providers Care Garnisher Name Role Phone Va Glez MD Primary Care Provider Va Glez MD Unavailable Kerry Bernal RN Unavailable [phone] Ravi Barillas DPM Unavailable [phone] Christy Campuzano PA-C Unavailable Hans Cannon MD Unavailable Mitra Kendall DIRECTOR GLOBAL INTELLIGENCE Unavailable Burt Jovel MD Unavailable [phone] Estella Hassan [facility] Unavailable Reji Chavez MD Unavailable [phone] Josh Cordero MD, Madhuri Unavailable [phone] Josh Cordero MD, Madhuri Unavailable [phone] Kelsi Hassan MD Unavailable [phone] John Webb MD Unavailable John Webb MD Unavailable [phone] Estella Hassan [facility] Unavailable Nav Hughes MD Unavailable [phone] Cassandra Mendoza MD Unavailable Estella Hassan RPH Unavailable Mitra Kendall DIRECTOR GLOBAL INTELLIGENCE Unavailable Aurelio Lindsay Kenzie OD Unavailable Ravi Brownlee MD Unavailable Kye Arabella MA Unavailable [phone] Richard Kam MD Unavailable Marisol Patel RPH Unavailable Gaby Vila DO Unavailable Rosemarie Mcdowell RN Unavailable Ravi Brownlee MD Unavailable Mitra Kendall DIRECTOR GLOBAL INTELLIGENCE Unavailable Lizet MannC Unavailable Ravi Brownlee MD Unavailable Nav Hughes MD Unavailable [phone] Manuel Ahn OD Unavailable Kye Arabella MA Unavailable [phone] Thalia Charles RP Unavailable Gaurav Valenzuela APRN FARM TECHNICIAN Unavailable Manuel Ahn OD Unavailable Debbie Mann MD Unavailable Hakeem Chacko Unavailable Debbie Mann MD Unavailable Timothy Tejada MD Unavailable Timothy Tejdaa MD Unavailable Elsie Roberts APRN FARM TECHNICIAN Unavailable + Cristy Morton MD Unavailable Georgie Anguiano PA-C Unavailable Encounter Details Date Type Department Care Team (Late st Contact Info) Description 07/27/2020 MyC Medical Advice [facility] Cancer [address] [address] Elaina Moreno MD [address] [place] [address] Social History Tobacco Use Types Packs/Day [...] Answer Date Recorded PHQ-2 Score 2 07/28/2020 [facility] [place] of Occupat ional Health - Occupational Stress [...] on file 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 909 [facility] 4th [place] [phone] Richard Kam MD [address] [place] [address] 12/19/2024 8:20 AM CDT Therapy Visit [address] [address] Shanta Cooper, PT 12/24/2024 5:00 PM CDT Therapy Visit [address] [address] Pattie Casillas, PT 12/25/2024 10:20 AM CDT Therapy Visit [address] [address] Shanta Cooper, PT 01/03/2025 1:00 PM CDT Office Visit [address] [phone] Estella Hassan, [facility] [address] [place] [address] 01/03/2025 1:30 PM CDT Office Visit [address] [address] Va Glez MD [address] [place] [address] 61635124 01/08/2025 1:15 PM CDT Office Visit [address] [phone] Hakeem Chacko MBBS [address] [place] [address] Scheduled Procedures Name Priority Associated Diagnoses Date/Ti me INJECTION, EPIDURAL, TRANSFO RAMINAL APPROACH Cervical radiculitis RELEASE, CARPAL TUNNEL, ENDOSCOPIC Right carpal tunnel syndrome documented as of this encounter Visit Diagnoses Not on filedocumented in this encounter Additional Health Concerns Infection Onset Date Last Indicated Resolved Time Rule Out COVID-19 06/22/2021 06/22/2021 06/23/2021 8:58 PM CDT Rule Out COVID-19 01/22/2022 01/22/2022 01/24/2022 1:05 PM PRODUCE PRODUCTION TEAM MEMBER Rule Out COVID-19 01/25/2022 01/25/2022 01/25/2022 5:21 AM PRODUCE PRODUCTION TEAM MEMBER Influenza 01/25/2022 01/25/2022 02/01/2022 11:4 1 PM PRODUCE PRODUCTION TEAM MEMBER Rule Out COVID-19 07/29/2022 07/29/2022 07/31/2022 11:17 AM CDT Rule Out COVID-19 03/23/2023 03/23/2023 03/23/2023 6:30 PM PRODUCE PRODUCTION TEAM MEMBER COVID-19 03/23/2023 03/23/2023 04/13/2023 11:4 0 PM PRODUCE PRODUCTION TEAM MEMBER Rule Out COVID-19 06/05/2023 06/05/2023 06/05/2023 5:53 PM CDT Rule Out COVID-19 11/06/2023 11/06/2023 11/06/2023 11:05 PM CDT Rule Out COVID-19 11/20/2023 11/20/2023 11/20/2023 6:43 PM CDT Rule Out COVID-19 12/27/2023 12/27/2023 12/29/2023 1:37 PM CDT Rule Out COVID-19 03/01/2024 03/01/2024 03/01/2024 1:11 PM PRODUCE PRODUCTION TEAM MEMBER Rule Out COVID-19 07/18/2024 07/18/2024 07/19/2024 5:52 PM CDT Rule Out COVID-19 10/17/2024 10/17/2024 10/17/2024 11:23 PM CDT Rule Out C-difficile 11/04/2024 11/04/2024 025 1:55 AM CDT Assessment Noted Time PHQ-9 Depression Total Score: 7 07/29/19 21 7:03 AM CDT documented as of this encounter Care Teams Garnisher Relationship Specialty [place] [address] [place] [address] PCP - General Family Practice 07/11/14 [place] [address] [place] [address] Assigned PCP 12/16/11 Kerry Bernal RN Personal Advocate & Liaison (PAL) 01/08/19 07/10/23 Ravi Barillas DPM [address] [facility] 300 [place] [address] Assigned Musculoskeletal Provider 03/23/20 10/30/21 Christy Campuzano PA-C [address] [place] [address] Referring Physician Family Medicine 04/22/20 Hans Cannon MD [address] [place] [address] Resident Pulmonary Disease 04/22/20 Mitra Kendall, DIRECTOR GLOBAL INTELLIGENCE Lead In Service Educator Primary Care - CC 01/08/1901/12 Burt Jovel MD Internal Medicine 05/08/20 12/13/23 Estella Hassan, [facility] [address] [place] [address] Pharmacist Pharmacist 05/26/20 Reji Chavez MD [address] [place] [phone] Assigned Heart and Vascular Provider 05/18/20 10/30/21 Elaina Moreno MD 909 [place], [place] 229175 Assigned Surgical Provider 05/18/20 11/19/22 Elaina Moreno MD [address] [place] [address]055 Cardiovascular & Thoracic Surgery 08/06/20 Kelsi Hassan MD [address] [place] [address] Assigned Pulmonology Provider 06/28/21 02/05/22 John Webb MD [address] [address] Cardiovascular Disease 08/25/21 John Webb MD [address] [id number] Cardiovascular Disease 08/25/21 Estella Hassan, [facility] [address] [place] [address] Assigned MTM Pharmacist 09/05/21 Nav Hughes MD [address] [place] [address] Assigned Heart and Vascular Provider 10/31/21 09/03/23 Cassandra Mendoza MD ORTHOPAEDIC SURGERY [address] [address] Assigned Musculoskeletal Provider 10/31/21 08/13/22 Estella Hassan, [facility] [address] [place] [address] Assigned MTM Pharmacist 12/09/21 Mitra Kendall, [facility] Lead In Service Educator Primary Care - CC 01/26/2210/28 Lindsay Carey OD [address] [facility] [place] [address] Ophthalmology 01/29/22 Ravi Brownlee MD 420 [facility] 276 [place] [address] Assigned Pulmonology Provider 02/06/22 09/03/23 Arabella Fishman MA Financial Resource Worker 02/22/22 02/23/22 Richard Kam MD 500 [place] [address] Assigned Musculoskeletal Provider 08/14/22 Marisol Patel, [facility] [address] [place] [address] Pharmacist Pharmacist 11/22/22 01/09/23 [place] [address] [place], [address] 652487 Assigned Neuroscience Provider 01/01/23 12/03/24 Rosemarie Mcdowell, RN Director Of Marketing Communications Diabetes Education 03/17/23 Ravi Brownlee MD [address] [place] [address] 258255 Assigned Heart and Vascular Provider 09/04/23 01/03/24 Mitra Kendall, DIRECTOR GLOBAL INTELLIGENCE Lead In Service Educator Primary Care - CC 12/12/23 Lizet Mann PA-C [address] [place] [address] Assigned Cancer Care Provider 01/04/24 Ravi Brownlee MD [address] [place] [address] Assigned Pulmonology Provider 01/04/24 Nav Hughes MD [address] [place] [address] [place] [place] [address] Assigned Heart and Vascular Provider 01/04/24 05/05/24 Manuel Ahn OD 6341 [facility] [place] [address] Dealership General Manager 01/05/24 Arabella Fishman MA Financial Resource Worker 01/06/24 03/19/24 Thalia Charles [facility] [address] [place] [address] Pharmacist Pharmacy 01/26/24 Gaurav Valenzuela APRN FARM TECHNICIAN 606 [facility] 106 [place] [address] Assigned Sleep Provider 02/04/24 Manuel Ahn OD 6341 [place], [place] 159292 Assigned Surgical Provider 02/04/24 06/02/24 Debbie Mann MD 1600 [facility] 200 [place] [address] Cardiovascular Disease 02/24/24 Hakeem Chacko MBBS 2945 [place] [address] Assigned Rheumatology Provider 04/05/24 Debbie Mann MD 1600 [facility] 200 [place] [address] Assigned Heart and Vascular Provider 05/06/24 Timothy Tejada MD 6341 [place] [phone] Ophthalmology 05/29/24 Timothy Tejada MD 6341 [place] [address] Assigned Surgical Provider 06/03/24 Elsie Roberts APRN FARM TECHNICIAN 1600 [facility] [place] [place] [address] Nurse Practitioner Pain Medicine 10/16/24 Cristy Morton MD 1440 [facility] [place] [address] Assigned Pediatric Specialist Provider 11/03/24 Georgie Anguiano PA-C [address] [address] Assigned Neuroscience Provider 12/04/24 documented as of this encounter
--- OUTSIDE RECORDS SUMMARY | 2024-12-06 00:29 | XMS_ITS | Encounter Summary ---
Author Organization [facility] Address [address] [place] [address] Care Team Providers Care Rag Sorter And Cutter Name Role Phone Va Glez MD Primary Care Provider [phone] Va Glez MD Unavailable Kerry Bernal RN Unavailable Ravi Barillas DPM Unavailable [phone] Christy Campuzano PA-C Unavailable Hans Cannon MD Unavailable [phone] Mitra Kendall HIDE WASHER Unavailable Burt Jovel MD Unavailable Estella Hassan [facility] Unavailable [phone] Reji Chavez MD Unavailable Josh Cordero MD, Madhuri Unavailable [phone] Josh Cordero MD, Madhuri Unavailable [phone] Kelsi Hassan MD Unavailable [phone] John Webb MD Unavailable John Webb MD Unavailable [phone] Estella Hassan [facility] Unavailable Nav Hughes MD Unavailable [phone] Cassandra Mendoza MD Unavailable Estella Hassan RPH Unavailable Mitra Kendall HIDE WASHER Unavailable Aurelio Lindsay Kenzie OD Unavailable Ravi Brownlee MD Unavailable Kye Arabella MA Unavailable [phone] Richard Kam MD Unavailable Marisol Patel RPH Unavailable Gaby Vila DO Unavailable Rosemarie Mcdowell RN Unavailable Ravi Brownlee MD Unavailable Mitra Kendall HIDE WASHER Unavailable Lizet MannC Unavailable Ravi Brownlee MD Unavailable Nav Hughes MD Unavailable [phone] Manuel Ahn OD Unavailable Kye Arabella MA Unavailable [phone] Thalia Charles RP Unavailable Gaurav Valenzuela APRN CANDY DECORATOR Unavailable Manuel Ahn OD Unavailable Debbie Mann MD Unavailable Hakeem Chacko Unavailable Debbie Mann MD Unavailable Timothy Tejada MD Unavailable Timothy Tejada MD Unavailable Elsie Roberts APRN CANDY DECORATOR Unavailable + Cristy Morton MD Unavailable Georgie Anguiano PA-C Unavailable [phone] Encounter Details Date Type Department Care Team (Late st Contact Info) Description 07/26/2020 MyC Medical Advice [facility] [id number] [place] [address] [phone] [place] [id number] [place] [address] Social History Tobacco Use Types Packs/Day [...] Answer Date Recorded PHQ-2 Score 2 07/28/2020 [facility] - Occupational Stress Questionnaire Answer [...] on file Legal Sex 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 4th [place] [phone] Richard Kam MD [address] [place] [address] 12/19/2024 8:20 AM CDT Therapy Visit [address] [address] Shanta Cooper, PT 12/24/2024 5:00 PM CDT Therapy Visit [address] [address] Pattie Casillas, PT 12/25/2024 10:20 AM CDT Therapy Visit [address] [address] Shanta Cooper, PT 01/03/2025 1:00 PM CDT Office Visit [address] [phone] Estella Hassan, [facility] [address] [place] [address] 01/03/2025 1:30 PM CDT Office Visit [address] [phone] [place] [address] [place] [address] 01/08/2025 1:15 PM CDT Office Visit [address] [address] Hakeem Chacko MBBS [address] [place] [address] Scheduled Procedures Name Priority Associated Diagnoses Date/Ti me INJECTION, EPIDURAL, TRANSFO RAMINAL APPROACH Cervical radiculitis RELEASE, CARPAL TUNNEL, ENDOSCOPIC Right carpal tunnel syndrome documented as of this encounter Visit Diagnoses Not on filedocumented in this encounter Additional Health Concerns Infection Onset Date Last Indicated Resolved Time Rule Out COVID-19 06/22/2021 06/22/2021 06/23/2021 8:58 PM CDT Rule Out COVID-19 01/22/2022 01/22/2022 01/24/2022 1:05 PM FABRIC SOURCER Rule Out COVID-19 01/25/2022 01/25/2022 01/25/2022 5:21 AM FABRIC SOURCER Influenza 01/25/2022 01/25/2022 02/01/2022 11:4 1 PM FABRIC SOURCER Rule Out COVID-19 07/29/2022 07/29/2022 07/31/2022 11:17 AM CDT Rule Out COVID-19 03/23/2023 03/23/2023 03/23/2023 6:30 PM FABRIC SOURCER COVID-19 03/23/2023 03/23/2023 04/13/2023 11:4 0 PM FABRIC SOURCER Rule Out COVID-19 06/05/2023 06/05/2023 06/05/2023 5:53 PM CDT Rule Out COVID-19 11/06/2023 11/06/2023 11/06/2023 11:05 PM CDT Rule Out COVID-19 11/20/2023 11/20/2023 11/20/2023 6:43 PM CDT Rule Out COVID-19 12/27/2023 12/27/2023 12/29/2023 1:37 PM CDT Rule Out COVID-19 03/01/2024 03/01/2024 03/01/2024 1:11 PM FABRIC SOURCER Rule Out COVID-19 07/18/2024 07/18/2024 07/19/2024 5:52 PM CDT Rule Out COVID-19 10/17/2024 10/17/2024 10/17/2024 11:23 PM CDT Rule Out C-difficile 11/04/2024 11/04/2024 025 1:55 AM CDT Assessment Noted Time PHQ-9 Depression Total Score: 7 07/29/19 21 7:03 AM CDT documented as of this encounter Care Teams Rag Sorter And Cutter Relationship Specialty [place] [address] [place] [address] PCP - General Family Practice 07/11/14 [place] [address] [place] [address] Assigned PCP 12/16/11 Kerry Bernal RN Personal Advocate & Liaison (PAL) 01/08/19 07/10/23 Ravi Barillas DPM [id number] [place] [address] [address] [place] [address] Assigned Musculoskeletal Provider 03/23/20 10/30/21 Christy Campuzano PA-C [address] [place] [address] 256372 Referring Physician Family Medicine 04/22/20 Hans Cannon MD [address] [place] [address] Resident Pulmonary Disease 04/22/20 Mitra Kendall, HIDE WASHER Lead Courtroom Deputy Or Calendar Clerk Primary Care - CC 01/08/1901/12 Burt Jovel MD Internal Medicine 05/08/20 12/13/23 Estella Hassan, [facility] [address] [place] [address] Pharmacist Pharmacist 05/26/20 Reji Chavez MD [address] [place] [phone] Assigned Heart and Vascular Provider 05/18/20 10/30/21 Elaina Moreno MD [address] [place] [address] Assigned Surgical Provider 05/18/20 11/19/22 Elaina Moreno MD [address] [place] [address] Cardiovascular & Thoracic Surgery 08/06/20 Kelsi Hassan MD [address] [place] [address] Assigned Pulmonology Provider 06/28/21 02/05/22 John Webb MD [address] [address] Cardiovascular Disease 08/25/21 John Webb MD [address] [place] [address] Cardiovascular Disease 08/25/21 Estella Hassan, [facility] [address] [place] [address] Assigned MTM Pharmacist 09/05/21 Nav Hughes MD [address] [place] [address] Assigned Heart and Vascular Provider 10/31/21 09/03/23 Cassandra Mendoza MD ORTHOPAEDIC SURGERY [address] [address] Assigned Musculoskeletal Provider 10/31/21 08/13/22 Estella Hassan, [facility] [address] [place] [address] Assigned MTM Pharmacist 12/09/21 Mitra Kendall, [facility] Lead Courtroom Deputy Or Calendar Clerk Primary Care - CC 01/26/2210/28 Lindsay Carey OD 3305 [facility] [place] [address] Ophthalmology 01/29/22 Ravi Brownlee MD 420 [facility] 276 [place] [address] Assigned Pulmonology Provider 02/06/22 09/03/23 Arabella Fishman MA Financial Resource Worker 02/22/22 02/23/22 Richard Kam MD 500 [place] [address] Assigned Musculoskeletal Provider 08/14/22 Marisol Patel, [facility] 1440 [facility] [place] [place] [id number] Pharmacist Pharmacist 11/22/22 01/09/23 [place] [address] [place] PE[place], [address] [address] Assigned Neuroscience Provider 01/01/23 12/03/24 Rosemarie Mcdowell, RN Speed Operator Diabetes Education 03/17/23 Ravi Brownlee MD [address] [place] [address] Assigned Heart and Vascular Provider 09/04/23 01/03/24 Mitra Kendall, [facility] Lead Courtroom Deputy Or Calendar Clerk Primary Care - CC 12/12/23 Lizet Mann PA-C [address] [place] [address] Assigned Cancer Care Provider 01/04/24 Ravi Brownlee MD [address] [place] [address] Assigned Pulmonology Provider 01/04/24 Nav Hughes MD 6405 [facility] [place] [address] Assigned Heart and Vascular Provider 01/04/24 05/05/24 Manuel Ahn OD 6341 [facility] [place] [place] [address] Top Precipitator Operator 01/05/24 Arabella Fishman MA Financial Resource Worker 01/06/24 03/19/24 Melvin Thalia [facility] [address] [place] [address] Pharmacist Pharmacy 01/26/24 Gaurav Valenzuela APRN CANDY DECORATOR [address] [facility] 106 [place], [place] 989614 Assigned Sleep Provider 02/04/24 Manuel Ahn OD [address] [place], [place] 354062 Assigned Surgical Provider 02/04/24 06/02/24 Debbie Mann MD 1600 [facility] 200 [place] [address] Cardiovascular Disease 02/24/24 Hakeem Chacko MBBS 2945 [place] [address] Assigned Rheumatology Provider 04/05/24 Debbie Mann MD 1600 [facility] 200 [place] [address] Assigned Heart and Vascular Provider 05/06/24 Timothy Tejada MD 6341 [place] [phone] Ophthalmology 05/29/24 Timothy Tejada MD [address] [place] [address] Assigned Surgical Provider 06/03/24 Elsie Roberts APRN CANDY DECORATOR 1600 [facility] [place] [address] [place] [place] [address] Nurse Practitioner Pain Medicine 10/16/24 Cristy Morton MD [address] [facility] [place] [address] Assigned Pediatric Specialist Provider 11/03/24 Georgie Anguiano PA-C [address] [address] Assigned Neuroscience Provider 12/04/24 documented as of this encounter
--- OUTSIDE RECORDS SUMMARY | 2024-12-06 00:29 | XMS_ITS | Clinical Summary ---
Author Organization [facility] Address [address] [place] [address] Care Team Providers Care Manager Patient Name Role Phone Va Glez MD Primary Care Provider [phone] Nichol Acevedo MD Unavailable [phone] Allergies No known active allergies Medications Blood-Glucose [...] Description 09/05/2024 1:00 PM CDT Office Visit [facility] [address] [place] [address] Nichol Acevedo MD Polyneuropathy (Primary [...] topic Insurance UHC MEDICARE ADVANTAGE Care Teams Manager Patient Relationship Specialty Start Date End Date Va Glez MD PCP - General Family Medicine - 05/28/24 Nichol Acevedo MD [address] [place] [address] Neurology 06/05/24
--- OUTSIDE RECORDS SUMMARY | 2024-12-06 00:29 | XMS_ITS | Encounter Summary ---
Author Organization [facility] Address [address] [place] [address] Care Team Providers Care Clearance Coordinator Name Role Phone Va Glez MD Primary Care Provider Va Glez MD Unavailable Kerry Bernal RN Unavailable [phone] Ravi Barillas DPM Unavailable [phone] Christy Campuzano PA-C Unavailable [phone] Hans Cannon MD Unavailable [phone] Mitra Kendall DIRECTOR ECONOMIC Unavailable Burt Jovel MD Unavailable Estella Hassan [facility] Unavailable Reji Chavez MD Unavailable Josh Cordero MD, Madhuri Unavailable [phone] Josh Cordero MD, Madhuri Unavailable [phone] Kelsi Hassan MD Unavailable [phone] John Webb MD Unavailable John Webb MD Unavailable [phone] Estella Hassan [facility] Unavailable Nav Hughes MD Unavailable [phone] Cassandra Mendoza MD Unavailable Estlela Hassan RPH Unavailable Mitra Kendall DIRECTOR ECONOMIC Unavailable Aurelio Lindsay Kenzie OD Unavailable Ravi Brownlee MD Unavailable Kye Arabella MA Unavailable [phone] Richard Kam MD Unavailable Marisol Patel RPH Unavailable Gaby Vila DO Unavailable Rosemarie Mcdowell RN Unavailable Ravi Brownlee MD Unavailable Mitra Kendall DIRECTOR ECONOMIC Unavailable Lizet MannC Unavailable Ravi Brownlee MD Unavailable Nav Hughes MD Unavailable [phone] Manuel Ahn OD Unavailable Kye Arabella MA Unavailable [phone] Thalia Charles RP Unavailable Gaurav Valenzuela APRN INSURANCE DEFENSE PARALEGAL Unavailable Manuel Ahn OD Unavailable Debbie Mann MD Unavailable Hakeem Chacko Unavailable Debbie Mann MD Unavailable Timothy Tejada MD Unavailable Timothy Tejada MD Unavailable Elsie Roberts APRN INSURANCE DEFENSE PARALEGAL Unavailable + Cristy Morton MD Unavailable Georgie Anguiano PA-C Unavailable [phone] Encounter Details Date Type Department Care Team (Late st Contact Info) Description 07/31/2020 MyC Medical Advice [facility] Cancer [address] [address] Elaina Moreno MD [address] [place] [address] Social History Tobacco Use Types Packs/Day [...] and Family Not on file 05/31/2019 Attends Confucianist Services Not on file 05/30 Active Member [...] Answer Date Recorded PHQ-2 Score 2 07/28/2020 [facility] [place] of Occupat ional Health - Occupational Stress [...] on file Legal 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 [address] [place] [address] Shanta Cooper PT 12/14/2024 11:20 AM CDT Office Visit [facility] [address] [facility] [place] [phone] Lizet Mann PA-C [address] [address] [address] 12/17/2024 2:10 PM CDT Office Visit [facility] Orthopedic [facility] 909 [facility] 4th [place] [phone] Richard Kam MD [address] [place] [address] 12/19/2024 8:20 AM CDT Therapy Visit [address] [address] Shanta Cooper, PT 12/24/2024 5:00 PM CDT Therapy Visit [address] [address] Pattie Casillas, PT 12/25/2024 10:20 AM CDT Therapy Visit [address] [address] Shanta Cooper, PT 01/03/2025 1:00 PM CDT Office Visit [address] [phone] Estella Hassan, [facility] [address] [place] [address] 01/03/2025 1:30 PM CDT Office Visit [address] [phone] Va Glez MD [address] [place] [address] [id number] 01/08/2025 1:15 PM CDT Office Visit [address] [phone] Hakeem Chacko MBBS [address] [place] [address] Scheduled Procedures Name Priority Associated Diagnoses Date/Ti me INJECTION, EPIDURAL, TRANSFO RAMINAL APPROACH Cervical radiculitis RELEASE, CARPAL TUNNEL, ENDOSCOPIC Right carpal tunnel syndrome documented as of this encounter Visit Diagnoses Not on filedocumented in this encounter Additional Health Concerns Infection Onset Date Last Indicated Resolved Time Rule Out COVID-19 06/22/2021 06/22/2021 06/23/2021 8:58 PM CDT Rule Out COVID-19 01/22/2022 01/22/2022 01/24/2022 1:05 PM DOUGHNUT DOUGH MIXER Rule Out COVID-19 01/25/2022 01/25/2022 01/25/2022 5:21 AM DOUGHNUT DOUGH MIXER Influenza 01/25/2022 01/25/2022 02/01/2022 11:4 1 PM DOUGHNUT DOUGH MIXER Rule Out COVID-19 07/29/2022 07/29/2022 07/31/2022 11:17 AM CDT Rule Out COVID-19 03/23/2023 03/23/2023 03/23/2023 6:30 PM DOUGHNUT DOUGH MIXER COVID-19 03/23/2023 03/23/2023 04/13/2023 11:4 0 PM DOUGHNUT DOUGH MIXER Rule Out COVID-19 06/05/2023 06/05/2023 06/05/2023 5:53 PM CDT Rule Out COVID-19 11/06/2023 11/06/2023 11/06/2023 11:05 PM CDT Rule Out COVID-19 11/20/2023 11/20/2023 11/20/2023 6:43 PM CDT Rule Out COVID-19 12/27/2023 12/27/2023 12/29/2023 1:37 PM CDT Rule Out COVID-19 03/01/2024 03/01/2024 03/01/2024 1:11 PM DOUGHNUT DOUGH MIXER Rule Out COVID-19 07/18/2024 07/18/2024 07/19/2024 5:52 PM CDT Rule Out COVID-19 10/17/2024 10/17/2024 10/17/2024 11:23 PM CDT Rule Out C-difficile 11/04/2024 11/04/2024 025 1:55 AM CDT Assessment Noted Time PHQ-9 Depression Total Score: 7 07/29/19 21 7:03 AM CDT documented as of this encounter Care Teams Clearance Coordinator Relationship Specialty [place] [address] [place] [address] PCP - General Family Practice 07/11/14 [place] [address] [place] [address] Assigned PCP 12/16/11 Kerry Bernal RN Personal Advocate & Liaison (PAL) 01/08/19 07/10/23 Ravi Barillas DPM [address] [facility] 300 [place] [address] Assigned Musculoskeletal Provider 03/23/20 10/30/21 Christy Campuzano PA-C [address] [place] [address] Referring Physician Family Medicine 04/22/20 Hans Cannon MD [address] [place] [address] Resident Pulmonary Disease 04/22/20 Mitra Kendall, DIRECTOR ECONOMIC Lead Licensed Physical Therapist Primary Care - CC 01/08/1901/12 Burt Jovel MD Internal Medicine 05/08/20 12/13/23 Estella Hassan, [facility] [address] [place] [address] Pharmacist Pharmacist 05/26/20 Reji Chavez MD [address] [place] [phone] Assigned Heart and Vascular Provider 05/18/20 10/30/21 Elaina Moreno MD 909 [place], [place] 9139[address] Assigned Surgical Provider 05/18/20 11/19/22 Elaina Moreno MD [address] [place] [address] 896255 Cardiovascular & Thoracic Surgery 08/06/20 Kelsi Hassan MD [address] [place] [address] Assigned Pulmonology Provider 06/28/21 02/05/22 John Webb MD [address] [address] Cardiovascular Disease 08/25/21 John Webb MD [address] 627635 Cardiovascular Disease 08/25/21 Estella Hassan, [facility] [address] [place] [address] Assigned MTM Pharmacist 09/05/21 Nav Hughes MD [address] [place] [address] Assigned Heart and Vascular Provider 10/31/21 09/03/23 Cassandra Mendoza MD ORTHOPAEDIC SURGERY [address] [address] Assigned Musculoskeletal Provider 10/31/21 08/13/22 Estella Hassan, [facility] [address] [place] [address] Assigned MTM Pharmacist 12/09/21 Mitra Kendall, [facility] Lead Licensed Physical Therapist Primary Care - CC 01/26/2210/28 Lindsay Carey OD 3305 [facility] [place] [address] Ophthalmology 01/29/22 Ravi Brownlee MD 420 [facility] 276 [place] [address] Assigned Pulmonology Provider 02/06/22 09/03/23 Arabella Fishman MA Financial Resource Worker 02/22/22 02/23/22 Richard Kam MD 500 [place] [address] Assigned Musculoskeletal Provider 08/14/22 Marisol Patel, [facility] [address] [place] [address] Pharmacist Pharmacist 11/22/22 01/09/23 [place] [address] BC PENA, [address] [address] Assigned Neuroscience Provider 01/01/23 12/03/24 Rosemarie Mcdowell, RN Cloth Roll Winder Diabetes Education 03/17/23 Ravi Brownlee MD [address] [place] [address] 295215 Assigned Heart and Vascular Provider 09/04/23 01/03/24 Mitra Kendall, DIRECTOR ECONOMIC Lead Licensed Physical Therapist Primary Care - CC 12/12/23 Lizet Mann PA-C [address] [place] [address] Assigned Cancer Care Provider 01/04/24 Ravi Brownlee MD [address] [place] [address] Assigned Pulmonology Provider 01/04/24 Nav Hughes MD [address] [place] [address] [address] [address] Assigned Heart and Vascular Provider 01/04/24 05/05/24 Manuel Ahn OD [address] [facility] [place] [place] [address] Daylight Driller 01/05/24 Arabella Fishman MA Financial Resource Worker 01/06/24 03/19/24 Thalia Charles [facility] [address] [place] [address] Pharmacist Pharmacy 01/26/24 Gaurav Valenzuela APRN INSURANCE DEFENSE PARALEGAL 606 [facility] 106 [place] [address] Assigned Sleep Provider 02/04/24 Manuel Ahn OD 6341 [place], [place] 988282 Assigned Surgical Provider 02/04/24 06/02/24 Debbie Mann MD 1600 [facility] 200 [place] [address] Cardiovascular Disease 02/24/24 Hakeem Chacko MBBS [address] [place] [address] Assigned Rheumatology Provider 04/05/24 Debbie Mann MD 1600 [facility] 200 [place] [address] Assigned Heart and Vascular Provider 05/06/24 Timothy Tejada MD 6341 [place] [phone] Ophthalmology 05/29/24 Timothy Tejada MD [address] [place] [address] Assigned Surgical Provider 06/03/24 Elsie Roberts APRN INSURANCE DEFENSE PARALEGAL 1600 [facility] [address] [address] Nurse Practitioner Pain Medicine 10/16/24 Cristy Morton MD 1440 [facility] [address] [place] [address] Assigned Pediatric Specialist Provider 11/03/24 Georgie Anguiano PA-C [address] [address] Assigned Neuroscience Provider 12/04/24 documented as of this encounter
--- OUTSIDE RECORDS SUMMARY | 2024-12-06 00:29 | XMS_ITS | Encounter Summary ---
Author Organization [facility] Address [address] [place] [address] Care Team Providers Care Bottle House Quality Control Technician Name Role Phone Va Glez MD Primary Care Provider [phone] Va Glez MD Unavailable Kerry Bernal RN Unavailable [phone] Ravi Barillas DPM Unavailable [phone] Christy Campuzano PA-C Unavailable Hans Cannon MD Unavailable Mitra Kendall CYLINDER DIE MACHINE HELPER Unavailable Burt Jovel MD Unavailable Estella Hassan [facility] Unavailable [phone] Reji Chavez MD Unavailable [phone] Josh Cordero MD, Madhuri Unavailable [phone] Josh Cordero MD, Madhuri Unavailable [phone] Kelsi Hassan MD Unavailable [phone] John Webb MD Unavailable [phone] John Webb MD Unavailable [phone] Estella Hassan [facility] Unavailable Nav Hughes MD Unavailable [phone] Cassandra Mendoza MD Unavailable Estella Hassan RPH Unavailable Mitra Kendall CYLINDER DIE MACHINE HELPER Unavailable Aurelio Lindsay Kenzie OD Unavailable Ravi Brownlee MD Unavailable Kye Arabella MA Unavailable [phone] Richard Kam MD Unavailable Marisol Patel RPH Unavailable Gaby Vila DO Unavailable Rosemarie Mcdowell RN Unavailable Ravi Brownlee MD Unavailable Mitra Kendall CYLINDER DIE MACHINE HELPER Unavailable Lizet MannC Unavailable Ravi Brownlee MD Unavailable Nav Hughes MD Unavailable [phone] Manuel Ahn OD Unavailable Kye Arabella MA Unavailable [phone] Thalia Charles RP Unavailable Gaurav Valenzuela APRN POLICE PILOT Unavailable Manuel Ahn OD Unavailable Debbie Mann MD Unavailable Hakeem Chacko Unavailable Debbie Mann MD Unavailable Timothy Tejada MD Unavailable Timothy Tejada MD Unavailable Elsei Roberts APRN POLICE PILOT Unavailable + Cristy Morton MD Unavailable Georgie Anguiano PA-C Unavailable Encounter Details Date Type Department Care Team (Late st Contact Info) Description 07/31/2020 MyC Medical Advice [facility] Cancer [address] [address] Elaina Moreno MD [address] [place] [address] Social History Tobacco Use Types Packs/Day [...] and Family Not on file 05/31/2019 Attends Sikhism Services Not on file 05/30 Active Member [...] Answer Date Recorded PHQ-2 Score 2 07/28/2020 [facility] [place] of Occupat ional Health - Occupational Stress [...] file 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 4th [place] [address] Richard Kam MD [address] [place] [address] 12/19/2024 8:20 AM CDT Therapy Visit [address] [address] Shanta Cooper, PT 12/24/2024 5:00 PM CDT Therapy Visit [address] [address] Pattie Casillas, PT 12/25/2024 10:20 AM CDT Therapy Visit [address] [address] Shanta Cooper, PT 01/03/2025 1:00 PM CDT Office Visit [address] [phone] Estella Hassan, [facility] [address] [place] [address] 01/03/2025 1:30 PM CDT Office Visit [address] [phone] Va Glez MD [address] [place] [address] [id number] 01/08/2025 1:15 PM CDT Office Visit [address] [phone] Hakeem Chacko MBBS [address] [place] [address] Scheduled Procedures Name Priority Associated Diagnoses Date/Ti [...] COVID-19 01/22/2022 01/22/2022 01/24/2022 1:05 PM 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 Rule Out COVID-19 01/25/2022 01/25/2022 01/25/2022 5:21 AM 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 Influenza 01/25/2022 01/25/2022 02/01/2022 11:4 1 PM 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 Rule Out COVID-19 07/29/2022 07/29/2022 07/31/2022 11:17 AM CDT Rule Out COVID-19 03/23/2023 03/23/2023 03/23/2023 6:30 PM 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 COVID-19 03/23/2023 03/23/2023 04/13/2023 11:4 0 PM 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 Rule Out COVID-19 06/05/2023 06/05/2023 06/05/2023 5:53 PM CDT Rule Out COVID-19 11/06/2023 11/06/2023 11/06/2023 11:05 PM CDT Rule Out COVID-19 11/20/2023 11/20/2023 11/20/2023 6:43 PM CDT Rule Out COVID-19 12/27/2023 12/27/2023 12/29/2023 1:37 PM CDT Rule Out COVID-19 03/01/2024 03/01/2024 03/01/2024 1:11 PM 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 Rule Out COVID-19 07/18/2024 07/18/2024 07/19/2024 5:52 PM CDT Rule Out COVID-19 10/17/2024 10/17/2024 10/17/2024 11:23 PM CDT Rule Out C-difficile 11/04/2024 11/04/2024 025 1:55 AM CDT Assessment Noted Time PHQ-9 Depression Total Score: 7 07/29/19 21 7:03 AM CDT documented as of this encounter Care Teams Bottle House Quality Control Technician Relationship Specialty [place] [address] [place] [address] PCP - General Family Practice 07/11/14 [place] [address] [place] [address] Assigned PCP 12/16/11 Kerry Bernal RN Personal Advocate & Liaison (PAL) 01/08/19 07/10/23 Ravi Barillas DPM [address] [facility] [place] [address] [place] [address] Assigned Musculoskeletal Provider 03/23/20 10/30/21 Christy Campuzano PA-C [address] [place] [address] Referring Physician Family Medicine 04/22/20 Hans Cannon MD [address] [place] [address] Resident Pulmonary Disease 04/22/20 Mitra Kendall, CYLINDER DIE MACHINE HELPER Lead Risk Control Manager Primary Care - CC 01/08/1901/12 Burt Jovel MD Internal Medicine 05/08/20 12/13/23 Estella Hassan, [facility] [address] [place] [address] Pharmacist Pharmacist 05/26/20 Reji Chavez MD [address] [place] [phone] Assigned Heart and Vascular Provider 05/18/20 10/30/21 Elaina Moreno MD 909 [place], [place] 334835 Assigned Surgical Provider 05/18/20 11/19/22 Elaina Moreno MD [address] [place] [address] 583555 Cardiovascular & Thoracic Surgery 08/06/20 Kelsi Hassan MD [address] [place] [address] Assigned Pulmonology Provider 06/28/21 02/05/22 John Webb MD [address] [address] Cardiovascular Disease 08/25/21 John Webb MD [address] 288585 Cardiovascular Disease 08/25/21 Estella Hassan, [facility] [address] [place] [address] Assigned MTM Pharmacist 09/05/21 Nav Hughes MD [address] [place] [address] Assigned Heart and Vascular Provider 10/31/21 09/03/23 Cassandra Mendoza MD ORTHOPAEDIC SURGERY [address] [address] Assigned Musculoskeletal Provider 10/31/21 08/13/22 Estella Hassan, [facility] [address] [place] [address] Assigned MTM Pharmacist 12/09/21 Mitra Kendall, [facility] Lead Risk Control Manager Primary Care - CC 01/26/2210/28 Lindsay Carey OD 3305 [facility] [address] [address] Ophthalmology 01/29/22 Ravi [place] MD 420 [facility] [address] [place] [address] Assigned Pulmonology Provider 02/06/22 09/03/23 Arabella Fishman MA Financial Resource Worker 02/22/22 02/23/22 Richard Kam MD [address] [place] [address] Assigned Musculoskeletal Provider 08/14/22 Marisol Patel, [facility] [address] [place] [address] [address] Pharmacist Pharmacist 11/22/22 01/09/23 [place] [address] [place], [address] 178277 Assigned Neuroscience Provider 01/01/23 12/03/24 Rosemarie Mcdowell, RN Smooth Stucco Resurfacer Diabetes Education 03/17/23 Ravi [place] MD [address] [place] [address] 501525 Assigned Heart and Vascular Provider 09/04/23 01/03/24 Mitra Kendall, CYLINDER DIE MACHINE HELPER Lead Risk Control Manager Primary Care - CC 12/12/23 Lizet Mann PA-C [address] [place] [address] Assigned Cancer Care Provider 01/04/24 Ravi [place] MD [address] [place] [address] Assigned Pulmonology Provider 01/04/24 Nav Hughes MD [address] [place] [address] [address] [address] Assigned Heart and Vascular Provider 01/04/24 05/05/24 Manuel Ahn OD 6341 [facility] [place] [address] Service Consultant 01/05/24 Arabella Fishman MA Financial Resource Worker 01/06/24 03/19/24 Thalia Charles [facility] [address] [place] [address] Pharmacist Pharmacy 01/26/24 Gaurav Valenzuela APRN POLICE PILOT 606 [facility] 106 [place] [address] Assigned Sleep Provider 02/04/24 Manuel Ahn OD 6341 [place], [place] 731372 Assigned Surgical Provider 02/04/24 06/02/24 Debbie Mann MD 1600 [facility] 200 [place] [address] Cardiovascular Disease 02/24/24 Hakeem Chacko MBBS [address] [place] [address] Assigned Rheumatology Provider 04/05/24 Debbie Mann MD 1600 [facility] 200 [place] [address] Assigned Heart and Vascular Provider 05/06/24 Timothy Tejada MD 6341 [place] [phone] Ophthalmology 05/29/24 Timothy Tejada MD [address] [place] [address] Assigned Surgical Provider 06/03/24 Elsie Roberts APRN POLICE PILOT 1600 [facility] [place] [address] [address] Nurse Practitioner Pain Medicine 10/16/24 Cristy Morton MD 1440 [facility] [address] [place] [address] Assigned Pediatric Specialist Provider 11/03/24 Georgie Anguiano PA-C [address] [address] Assigned Neuroscience Provider 12/04/24 documented as of this encounter
--- OUTSIDE RECORDS SUMMARY | 2024-12-06 00:29 | XMS_ITS | Encounter Summary ---
Author Organization [facility] Address [address] [place] [address] Care Team Providers Care Comprehensive Ophthalmologist Name Role Phone Va Glez MD Primary Care Provider Va Glez MD Unavailable Kerry Bernal RN Unavailable [phone] Ravi Barillas DPM Unavailable [phone] Christy Campuzano PA-C Unavailable [phone] Hans Cannon MD Unavailable Mitra Kendall CHEMISTRY TECHNICAL OFFICER Unavailable Burt Jovel MD Unavailable Estella Hassan [facility] Unavailable Reji Chavez MD Unavailable Josh Cordero MD, Madhuri Unavailable [phone] Josh Cordero MD, Madhuri Unavailable [phone] Kelsi Hassan MD Unavailable [phone] John Webb MD Unavailable [phone] John Webb MD Unavailable [phone] Estella Hassan [facility] Unavailable Nav Hughes MD Unavailable [phone] Cassandra Mendoza MD Unavailable Estella Hassan RPH Unavailable Mitra Kendall CHEMISTRY TECHNICAL OFFICER Unavailable Aurelio Lindsay Kenzie OD Unavailable Ravi Brownlee MD Unavailable Kye Arabella MA Unavailable Richard Kam MD Unavailable Marisol Patel RPH Unavailable Gaby Vila DO Unavailable Rosemarie Mcdowell RN Unavailable Ravi Brownlee MD Unavailable Mitra Kendall CHEMISTRY TECHNICAL OFFICER Unavailable Lizet MannC Unavailable Ravi Brownlee MD Unavailable Nav Hughes MD Unavailable [phone] Manuel Ahn OD Unavailable Kye Arabella MA Unavailable [phone] Thalia Charles RP Unavailable Gaurav Valenzuela APRN BROADCAST DESIGNER Unavailable Manuel Ahn OD Unavailable Debbie Mann MD Unavailable Hakeem Chacko Unavailable Debbie Mann MD Unavailable Timothy Tejada MD Unavailable Timothy Tejada MD Unavailable Elsie Roberts APRN BROADCAST DESIGNER Unavailable + Cristy Morton MD Unavailable Georgie Anguiano PA-C Unavailable [phone] Encounter Details Date Type Department Care Team (Late st Contact Info) Description 07/26/2020 MyC Medical Advice [facility] Cancer [address] [address] Elaina Moreno MD [address] [place] [address] Social History Tobacco Use Types Packs/Day [...] Answer Date Recorded PHQ-2 Score 2 07/28/2020 [facility] of Occupat ional Health - Occupational Stress [...] on file 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 Gender Identity Not on file Sexual [...] Description 12/11/2024 2:10 PM CDT Therapy Visit [facility] Rehabilitation Services [address] [place] [address] Shanta Cooper PT 12/14/2024 11:20 AM CDT Office Visit [facility] [address] [phone] Lizet Mann PA-C [address] [facility] [place] [address] 12/17/2024 2:10 PM CDT Office Visit [facility] Orthopedic [facility] 909 [facility] 4th [place] [phone] Richard Kam MD [address] [place] [address] 12/19/2024 8:20 AM CDT Therapy Visit [address] [address] Shanta Cooper, PT 12/24/2024 5:00 PM CDT Therapy Visit [address] [address] Pattie Casillas, PT 12/25/2024 10:20 AM CDT Therapy Visit [address] [address] Shanta Cooper, PT 01/03/2025 1:00 PM CDT Office Visit [address] [phone] Estella Hassan, [facility] 30[address] [place] [address] 01/03/2025 1:30 PM CDT Office Visit [address] [phone] Va Glez MD [address] [place] [address] 01/08/2025 1:15 PM CDT Office Visit [address] [phone] Hakeem Chacko MBBS [address] [place] [address] Scheduled Procedures Name Priority Associated Diagnoses Date/Ti me INJECTION, EPIDURAL, TRANSFO RAMINAL APPROACH Cervical radiculitis RELEASE, CARPAL TUNNEL, ENDOSCOPIC Right carpal tunnel syndrome documented as of this encounter Visit Diagnoses Not on filedocumented in this encounter Additional Health Concerns Infection Onset Date Last Indicated Resolved Time Rule Out COVID-19 06/22/2021 06/22/2021 06/23/2021 8:58 PM CDT Rule Out COVID-19 01/22/2022 01/22/2022 01/24/2022 1:05 PM 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 Rule Out COVID-19 01/25/2022 01/25/2022 01/25/2022 5:21 AM 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 Influenza 01/25/2022 01/25/2022 02/01/2022 11:4 1 PM 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 Rule Out COVID-19 07/29/2022 07/29/2022 07/31/2022 11:17 AM CDT Rule Out COVID-19 03/23/2023 03/23/2023 03/23/2023 6:30 PM 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 COVID-19 03/23/2023 03/23/2023 04/13/2023 11:4 0 PM 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 Rule Out COVID-19 06/05/2023 06/05/2023 06/05/2023 5:53 PM CDT Rule Out COVID-19 11/06/2023 11/06/2023 11/06/2023 11:05 PM CDT Rule Out COVID-19 11/20/2023 11/20/2023 11/20/2023 6:43 PM CDT Rule Out COVID-19 12/27/2023 12/27/2023 12/29/2023 1:37 PM CDT Rule Out COVID-19 03/01/2024 03/01/2024 03/01/2024 1:11 PM 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 Rule Out COVID-19 07/18/2024 07/18/2024 07/19/2024 5:52 PM CDT Rule Out COVID-19 10/17/2024 10/17/2024 10/17/2024 11:23 PM CDT Rule Out C-difficile 11/04/2024 11/04/2024 025 1:55 AM CDT Assessment Noted Time PHQ-9 Depression Total Score: 7 07/29/19 21 7:03 AM CDT documented as of this encounter Care Teams Comprehensive Ophthalmologist Relationship Specialty [place] [address] [place] [address] PCP - General Family Practice 07/11/14 [place] [address] [place] [address] Assigned PCP 12/16/11 Kerry Bernal RN Personal Advocate & Liaison (PAL) 01/08/19 07/10/23 Ravi Barillas DPM [address] [facility] 300 [place] [address] Assigned Musculoskeletal Provider 03/23/20 10/30/21 Christy Campuzano PA-C [address] [place] [address] Referring Physician Family Medicine 04/22/20 Hans Cannon MD [address] [place] [address] Resident Pulmonary Disease 04/22/20 Mitra Kendall, CHEMISTRY TECHNICAL OFFICER Lead Correctional Corporal Primary Care - CC 01/08/1901/12 Burt Jovel MD Internal Medicine 05/08/20 12/13/23 Estella Hassan, [facility] [address] [place] [address] Pharmacist Pharmacist 05/26/20 Reji Chavez MD [address] [place] [phone] Assigned Heart and Vascular Provider 05/18/20 10/30/21 Elaina Moreno MD 909 [place], [place] 731495 Assigned Surgical Provider 05/18/20 11/19/22 Elaina Moreno MD [address] [place] [address] 665675 Cardiovascular & Thoracic Surgery 08/06/20 Kelsi Hassan MD [address] [place] [address] Assigned Pulmonology Provider 06/28/21 02/05/22 John Webb MD [address] [address] Cardiovascular Disease 08/25/21 John Webb MD [address] 958765 Cardiovascular Disease 08/25/21 Estella Hassan, [facility] [address] [place] [address] Assigned MTM Pharmacist 09/05/21 Nav Hughes MD [address] [place] [address] Assigned Heart and Vascular Provider 10/31/21 09/03/23 Cassandra Mendoza MD ORTHOPAEDIC SURGERY [address] [address] Assigned Musculoskeletal Provider 10/31/21 08/13/22 Estella Hassan, [facility] [address] [place] [address] Assigned MTM Pharmacist 12/09/21 Mitra Kendall, [facility] [address] Lead Correctional Corporal Primary Care - CC 01/26/2210/28 Lindsay Carey OD 3305 [facility] [place] [place] [address] Ophthalmology 01/29/22 Ravi Brownlee MD 420 [facility] 276 [place] [address] Assigned Pulmonology Provider 02/06/22 09/03/23 Arabella Fishman MA Financial Resource Worker 02/22/22 02/23/22 Richard Kam MD 500 [place] [address] Assigned Musculoskeletal Provider 08/14/22 Marisol Patel, [facility] [address] [place] [address] Pharmacist Pharmacist 11/22/22 01/09/23 [place] [address] [place], [address] [address]127 Assigned Neuroscience Provider 01/01/23 12/03/24 Rosemarie Mcdowell, RN Home Health Travel Pt Diabetes Education 03/17/23 Ravi [place] MD [address] [place] [address] 496335 Assigned Heart and Vascular Provider 09/04/23 01/03/24 Mitra Kendall, CHEMISTRY TECHNICAL OFFICER Lead Correctional Corporal Primary Care - CC 12/12/23 Lizet Mann PA-C [address] [place] [address] Assigned Cancer Care Provider 01/04/24 Ravi [place] MD [address] [place] [address] Assigned Pulmonology Provider 01/04/24 Nav Hughes MD [address] [place] [address] [address] [address] Assigned Heart and Vascular Provider 01/04/24 05/05/24 Manuel Ahn OD 6341 [facility] [address] [place] [address] Tire Center Manager 01/05/24 Arabella Fishman MA Financial Resource Worker 01/06/24 03/19/24 Thalia Charles [facility] [address] [place] [address] Pharmacist Pharmacy 01/26/24 Gaurav Valenzuela APRN BROADCAST DESIGNER 606 [facility] 106 [place] [address] Assigned Sleep Provider 02/04/24 Manuel Ahn OD 6341 [place], [place] 329832 Assigned Surgical Provider 02/04/24 06/02/24 Debbie Mann MD 1600 [facility] 200 [place] [address] Cardiovascular Disease 02/24/24 Hakeem Chacko MBBS 2945 [place] [address] Assigned Rheumatology Provider 04/05/24 Debbie Mann MD 1600 [facility] 200 [place] [address] Assigned Heart and Vascular Provider 05/06/24 Timothy Tejada MD 6341 [place] [phone] Ophthalmology 05/29/24 Timothy Tejada MD [address]341 [place] [address] Assigned Surgical Provider 06/03/24 Elsie Roberts APRN BROADCAST DESIGNER 1600 [facility] [place] [address] [address] Nurse Practitioner Pain Medicine 10/16/24 Cristy Morton MD 14[address] [facility] [place] [place] [address] Assigned Pediatric Specialist Provider 11/03/24 Georgie Anguiano PA-C [address] [address] Assigned Neuroscience Provider 12/04/24 documented as of this encounter
--- OUTSIDE RECORDS SUMMARY | 2024-12-06 00:30 | XMS_ITS | Encounter Summary ---
Author Organization [facility] Address [address] [place] [address] Care Team Providers Care Portal Developer Name Role Phone Va Glez MD Primary Care Provider [phone] Va Glez MD Unavailable Kerry Bernal RN Unavailable Ravi Barillas DPM Unavailable [phone] Christy Campuzano PA-C Unavailable Hans Cannon MD Unavailable Mitra Kendall TERMINAL CLERK Unavailable [phone] Burt Jovel MD Unavailable [phone] Estella Hassan [facility] Unavailable [phone] Reji Chavez MD Unavailable Josh Cordero MD, Madhuri Unavailable [phone] Josh Cordero MD, Madhuri Unavailable [phone] Kelsi Hassan MD Unavailable [phone] John Webb MD Unavailable John Webb MD Unavailable Estella Hassan [facility] Unavailable Nav Hughes MD Unavailable [phone] Cassandra Mendoza MD Unavailable Estella Hassan RPH Unavailable Mitra Kendall TERMINAL CLERK Unavailable Aurelio Lindsay Kenzie OD Unavailable Ravi Brownlee MD Unavailable Kye Arabella MA Unavailable [phone] Richard Kam MD Unavailable Marisol Patel RPH Unavailable Gaby Vila DO Unavailable Rosemarie Mcdowell RN Unavailable Ravi Brownlee MD Unavailable Mitra Kendall TERMINAL CLERK Unavailable Lizet MannC Unavailable Ravi Brownlee MD Unavailable Nav Hughes MD Unavailable [phone] Manuel Ahn OD Unavailable Kye Arabella MA Unavailable [phone] Thalia Charles RP Unavailable Gaurav Valenzuela APRN LANDSCAPING CREW LEADER Unavailable Manuel Ahn OD Unavailable Debbie Mann MD Unavailable Hakeem Chacko Unavailable Debbie Mann MD Unavailable Timothy Tejada MD Unavailable Timothy Tejada MD Unavailable Elsie Roberts APRN LANDSCAPING CREW LEADER Unavailable + Cristy Morton MD Unavailable [phone] Georgie Anguiano PA-C Unavailable [phone] Encounter Details Date Type Department Care Team (Late st Contact Info) Description 08/07/2020 MyC Medical Advice [facility] Cancer [address] [address] Elaina Moreno MD [address] [place] [address] Social History Tobacco Use Types Packs/Day [...] points; Administer PHQ-9 if positive 1 08/06/2020 [facility] of Occupat ional Health - Occupational Stress [...] on file Legal Sex 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 4th [place] [address] Richard Kam MD 500 [place] [address] 12/19/2024 8:20 AM CDT Therapy Visit [address] [place] [address] Shanta Cooper, PT 12/24/2024 5:00 PM CDT Therapy Visit [address] [address] Pattie Casillas, PT 12/25/2024 10:20 AM CDT Therapy Visit [address] [address] Shanta Cooper, PT 01/03/2025 1:00 PM CDT Office Visit [address] [phone] Estella Hassan, [facility] [address] [place] [address] 01/03/2025 1:30 PM CDT Office Visit [address] [phone] Va Glez MD [address] [place] [id number] 01/08/2025 1:15 PM CDT Office Visit [facility] [address] [facility] [address] [place] [address] Hakeem Chacko MBBS 2945 [place] [address] Scheduled Procedures Name Priority Associated Diagnoses Date/Ti me INJECTION, EPIDURAL, TRANSFO RAMINAL APPROACH Cervical radiculitis RELEASE, CARPAL TUNNEL, ENDOSCOPIC Right carpal tunnel syndrome documented as of this encounter Visit Diagnoses Not on filedocumented in this encounter Additional Health Concerns Infection Onset Date Last Indicated Resolved Time Rule Out COVID-19 06/22/2021 06/22/2021 06/23/2021 8:58 PM CDT Rule Out COVID-19 01/22/2022 01/22/2022 01/24/2022 1:05 PM MEDICAL PHYSICS RESEARCHER Rule Out COVID-19 01/25/2022 01/25/2022 01/25/2022 5:21 AM MEDICAL PHYSICS RESEARCHER Influenza 01/25/2022 01/25/2022 02/01/2022 11:4 1 PM MEDICAL PHYSICS RESEARCHER Rule Out COVID-19 07/29/2022 07/29/2022 07/31/2022 11:17 AM CDT Rule Out COVID-19 03/23/2023 03/23/2023 03/23/2023 6:30 PM MEDICAL PHYSICS RESEARCHER COVID-19 03/23/2023 03/23/2023 04/13/2023 11:4 0 PM MEDICAL PHYSICS RESEARCHER Rule Out COVID-19 06/05/2023 06/05/2023 06/05/2023 5:53 PM CDT Rule Out COVID-19 11/06/2023 11/06/2023 11/06/2023 11:05 PM CDT Rule Out COVID-19 11/20/2023 11/20/2023 11/20/2023 6:43 PM CDT Rule Out COVID-19 12/27/2023 12/27/2023 12/29/2023 1:37 PM CDT Rule Out COVID-19 03/01/2024 03/01/2024 03/01/2024 1:11 PM MEDICAL PHYSICS RESEARCHER Rule Out COVID-19 07/18/2024 07/18/2024 07/19/2024 5:52 PM CDT Rule Out COVID-19 10/17/2024 10/17/202410/17/2024 11:23 PM CDT Rule Out C-difficile 11/04/2024 11/04/2024 025 1:55 AM CDT Assessment Noted Time PHQ-9 Depression Total Score: 7 08/08/19 21 7:03 AM CDT documented as of this encounter Care Teams Portal Developer Relationship Specialty [place] [address] [place] [address] PCP - General Family Practice 07/11/14 [place] [address] [place] [address] Assigned PCP 12/16/11 Kerry Bernal RN Personal Advocate & Liaison (PAL) 01/08/19 07/10/23 Ravi Barillas DPM [address] [facility] [address] [place] [address] Assigned Musculoskeletal Provider 03/23/20 10/30/21 Christy Campuzano PA-C [address] [place] [address]40[address] Referring Physician Family Medicine 04/22/20 Hans Cannon MD [address] [place] [address] Resident Pulmonary Disease 04/22/20 Mitra Kendall, TERMINAL CLERK Lead Bicycle Racer Primary Care - CC 01/08/1901/12 Burt Jovel MD Internal Medicine 05/08/20 12/13/23 Estella Hassan, [facility] 30[address] [place] [address] Pharmacist Pharmacist 05/26/20 Reji Chavez MD 6405 [facility] [place] [phone] Assigned Heart and Vascular Provider 05/18/20 10/30/21 Elaina Moreno MD [address] [place] [address] Assigned Surgical Provider 05/18/20 11/19/22 Elaina Moreno MD [address] [place] [address] Cardiovascular & Thoracic Surgery 08/06/20 Kelsi Hassan MD [address] [place], [place] [address] [place] [address] Assigned Pulmonology Provider 06/28/21 02/05/22 John Webb MD [address] [address] Cardiovascular Disease 08/25/21 John Webb MD [address] 153065 Cardiovascular Disease 08/25/21 Estella Hassan, [facility] [address] [place] [address] Assigned MTM Pharmacist 09/05/21 Nav Hughes MD [address] [place] [address] Assigned Heart and Vascular Provider 10/31/21 09/03/23 Cassandra Mendoza MD ORTHOPAEDIC SURGERY [facility] [address] [address] Assigned Musculoskeletal Provider 10/31/21 08/13/22 Estella Hassan, [facility] [address] [place] [address] Assigned MTM Pharmacist 12/09/21 Mitra Kendall, [facility] Lead Bicycle Racer Primary Care - CC 01/26/2210/28 Lindsay Carey OD 3305 [facility] [place] [place] [address] Ophthalmology 01/29/22 Ravi Brownlee MD [address] [place] [address] Assigned Pulmonology Provider 02/06/22 09/03/23 Arabella Fishman MA Financial Resource Worker 02/22/22 02/23/22 Richard Kam MD [address] [place] [address] Assigned Musculoskeletal Provider 08/14/22 Marisol Patel, [facility] [address] [place] [address] Pharmacist Pharmacist 11/22/22 01/09/23 [place] [address] [address] Assigned Neuroscience Provider 01/01/23 12/03/24 Rosemarie Mcdowell RN Shovel Mechanic Diabetes Education 03/17/23 Ravi Brownlee MD [address] [address] Assigned Heart and Vascular Provider 09/04/23 01/03/24 Mitra Kendall, [facility] Lead Bicycle Racer Primary Care - CC 12/12/23 Lizet Mann PA-C [address] [place] [address] Assigned Cancer Care Provider 01/04/24 Ravi Brownlee MD [address] [address] Assigned Pulmonology Provider 01/04/24 Nav Hughes MD 6405 [facility] [address] [place] [address] Assigned Heart and Vascular Provider 01/04/24 05/05/24 Manuel Ahn OD 6341 [facility] [place] [address] Highway Engineering Teacher 01/05/24 Arabella Fishman MA Financial Resource Worker 01/06/24 03/19/24 Melvin Thalia, [facility] [address] [place], [place] [phone] Pharmacist Pharmacy 01/26/24 Gaurav Valenzuela APRN LANDSCAPING CREW LEADER 606 [facility] 106 [place], [place] 506824 Assigned Sleep Provider 02/04/24 Manuel Ahn OD 6341 [place], [place] 631202 Assigned Surgical Provider 02/04/24 06/02/24 Debbie Mann MD 1600 [facility] 200 [place], [place] [phone] Cardiovascular Disease 02/24/24 Hakeme Chacko MBBS 2945 [place], [place] [phone] Assigned Rheumatology Provider 04/05/24 Debbie Mann MD 1600 [facility] 200 [place], [place] [phone] Assigned Heart and Vascular Provider 05/06/24 Timothy Tejada MD 6341 [place] [phone] Ophthalmology 05/29/24 Timothy Tejada MD 6341 [place] [phone] Assigned Surgical Provider 06/03/24 Elsie Roberts APRN LANDSCAPING CREW LEADER 1600 [facility] [place] [address] [place] [address] Nurse Practitioner Pain Medicine 10/16/24 Cristy Morton MD 1440 [facility] [place] [place] [phone] Assigned Pediatric Specialist Provider 11/03/24 Georgie Anguiano PA-C [address] [address]165 Assigned Neuroscience Provider 12/04/24 documented as of this encounter
--- OUTSIDE RECORDS SUMMARY | 2024-12-06 00:30 | XMS_ITS | Encounter Summary ---
Author Organization [facility] Address [address] [place] [address] Care Team Providers Care Inside Technical Sales Representative Name Role Phone Va Glez MD Primary Care Provider Va Glez MD Unavailable Kerry Bernal RN Unavailable Ravi Barillas DPM Unavailable [phone] Christy Campuzano PA-C Unavailable [phone] Hasn Cannon MD Unavailable Mitra Kendall RESIDENTIAL GREEN BUILDING DESIGNER Unavailable [phone] Burt Jovel MD Unavailable Estella Hassan [facility] Unavailable Reji Chavez MD Unavailable [phone] Josh Cordero MD, Madhuri Unavailable [phone] Josh Cordero MD, Madhuri Unavailable [phone] Kelsi Hassan MD Unavailable [phone] John Webb MD Unavailable John Webb MD Unavailable [phone] Estella Hassan [facility] Unavailable Nav Hughes MD Unavailable [phone] Cassandra Mendoza MD Unavailable Estella Hassan RPH Unavailable Mitra Kendall RESIDENTIAL GREEN BUILDING DESIGNER Unavailable Aurelio Lindsay Kenzie OD Unavailable Ravi Brownlee MD Unavailable Kye Arabella MA Unavailable [phone] Richard Kam MD Unavailable Marisol Patel RPH Unavailable Gaby Vila DO Unavailable Rosemarie Mcdowell RN Unavailable Ravi Brownlee MD Unavailable Mitra Kendall RESIDENTIAL GREEN BUILDING DESIGNER Unavailable Lizet MannC Unavailable Ravi Brownlee MD Unavailable Nav Hughes MD Unavailable [phone] Manuel Ahn OD Unavailable Kye Arabella MA Unavailable [phone] Thalia Charles RP Unavailable Gaurav Valenzuela APRN POWER MARKETER Unavailable Manuel Ahn OD Unavailable Debbie Mann MD Unavailable Hakeem Chacko Unavailable Debbie Mann MD Unavailable Timothy Tejada MD Unavailable Timothy Tejada MD Unavailable Elsie Roberts APRN POWER MARKETER Unavailable + Cristy Morton MD Unavailable Georgie Anguiano PA-C Unavailable Encounter Details Date Type Department Care Team (Late st Contact Info) Description 08/08/2020 MyC Medical Advice [address] [address] [facility] [address] [place] [address] Social History Tobacco Use Types Packs/Day Years [...] and Family Not on file 05/31/2019 Attends Hinduism Services Not on file 05/30 Active Member [...] Administer PHQ-9 if positive 1 08/06/2020 [facility] of Occupat ional Health [...] on file Legal 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 Gender Identity Not on file Sexual Orientation [...] CDT Therapy Visit [facility] Rehabilitation [address] [place] [address] Shanta [place], MOIZ 12/14/2024 11:20 AM CDT Office Visit [facility] [address] [place] [phone] Lizet Mann PA-C [address] [facility] [place] [address] 12/17/2024 2:10 PM CDT Office Visit [facility] Orthopedic [facility] 909 [facility] 4th [place] [address] Richard Kam MD 500 [place] [address] 12/19/2024 8:20 AM CDT Therapy Visit [address] [place] [address] Shanta [place], PT 12/24/2024 5:00 PM CDT Therapy Visit [address] [address] Pattie Casillas, PT 12/25/2024 10:20 AM CDT Therapy Visit [address] [address] Shanta [place], PT 01/03/2025 1:00 PM CDT Office Visit [address] [phone] Estella Hassan, [facility] 30[address] [place] [address] 01/03/2025 1:30 PM CDT Office Visit [address] [address] Va Glez MD [address] [place] [id number] 01/08/2025 1:15 PM CDT Office Visit [facility] 2945 [facility] [address] [place] [phone] Hakeem Chacko MBBS 1285 [place] [address] Scheduled Procedures Name Priority Associated Diagnoses Date/Ti me INJECTION, EPIDURAL, TRANSFO RAMINAL APPROACH Cervical radiculitis RELEASE, CARPAL TUNNEL, ENDOSCOPIC Right carpal tunnel syndrome documented as of this encounter Visit Diagnoses Not on filedocumented in this encounter Additional Health Concerns Infection Onset Date Last Indicated Resolved Time Rule Out COVID-19 06/22/2021 06/22/2021 06/23/2021 8:58 PM CDT Rule Out COVID-19 01/22/2022 01/22/2022 01/24/2022 1:05 PM COLUMN PRECASTER Rule Out COVID-19 01/25/2022 01/25/2022 01/25/2022 5:21 AM COLUMN PRECASTER Influenza 01/25/2022 01/25/2022 02/01/2022 11:4 1 PM COLUMN PRECASTER Rule Out COVID-19 07/29/2022 07/29/2022 07/31/2022 11:17 AM CDT Rule Out COVID-19 03/23/2023 03/23/2023 03/23/2023 6:30 PM COLUMN PRECASTER COVID-19 03/23/2023 03/23/2023 04/13/2023 11:4 0 PM COLUMN PRECASTER Rule Out COVID-19 06/05/2023 06/05/2023 06/05/2023 5:53 PM CDT Rule Out COVID-19 11/06/2023 11/06/2023 11/06/2023 11:05 PM CDT Rule Out COVID-19 11/20/2023 11/20/2023 11/20/2023 6:43 PM CDT Rule Out COVID-19 12/27/2023 12/27/2023 12/29/2023 1:37 PM CDT Rule Out COVID-19 03/01/2024 03/01/2024 03/01/2024 1:11 PM COLUMN PRECASTER Rule Out COVID-19 07/18/2024 07/18/2024 07/19/2024 5:52 PM CDT Rule Out COVID-19 10/17/2024 10/17/2024 10/17/2024 11:23 PM CDT Rule Out C-difficile 11/04/2024 11/04/2024 025 1:55 AM CDT Assessment Noted Time PHQ-9 Depression Total Score: 7 08/08/19 21 7:03 AM CDT documented as of this encounter Care Teams Inside Technical Sales Representative Relationship Specialty [place] [address] [place] [address] PCP - General Family Practice 07/11/14 [place] [address] [place] [address] Assigned PCP 12/16/11 Kerry Bernal RN Personal Advocate & Liaison (PAL) 01/08/19 07/10/23 Ravi Barillas DPM [address] [facility] [address] [place] [address] Assigned Musculoskeletal Provider 03/23/20 10/30/21 Christy Campuzano PA-C [address] [place] [address]2622 Referring Physician Family Medicine 04/22/20 Hans Cannon MD [address] [place] [address] Resident Pulmonary Disease 04/22/20 Mitra Kendall, RESIDENTIAL GREEN BUILDING DESIGNER Lead Senior Fund Accountant Primary Care - CC 01/08/1901/12 Burt Jovel MD Internal Medicine 05/08/20 12/13/23 Estella Hassan, [facility] 30[address] [place] [address] Pharmacist Pharmacist 05/26/20 Reji Chavez MD 6405 [facility] [address] [place] [address] Assigned Heart and Vascular Provider 05/18/20 10/30/21 Elaina Moreno MD [address] [place] [address] Assigned Surgical Provider 05/18/20 11/19/22 Elaina Moreno MD [address] [place] [address] Cardiovascular & Thoracic Surgery 08/06/20 Kelsi Hassan MD [address] [place] [address] Assigned Pulmonology Provider 06/28/21 02/05/22 John Webb MD [address] [address] Cardiovascular Disease 08/25/21 John Webb MD [address] 585185 Cardiovascular Disease 08/25/21 Estella Hassan, [facility] 30[address] [place] [address] Assigned MTM Pharmacist 09/05/21 Nav Hughes MD [address] [place] [address] Assigned Heart and Vascular Provider 10/31/21 09/03/23 Casasndra Mendoza MD ORTHOPAEDIC SURGERY [facility] [address] [address] Assigned Musculoskeletal Provider 10/31/21 08/13/22 Estella Hassan, [facility] [address] [place] [address] Assigned MTM Pharmacist 12/09/21 Mitra Kendall, [facility] Lead Senior Fund Accountant Primary Care - CC 01/26/2210/28 Lindsay Carey OD 3305 [facility] [address] [place] [address] Ophthalmology 01/29/22 Ravi Brownlee MD [address] [place] [address] Assigned Pulmonology Provider 02/06/22 09/03/23 Arabella Fishman MA Financial Resource Worker 02/22/22 02/23/22 Richard Kam MD [address] [place] [address] Assigned Musculoskeletal Provider 08/14/22 Marisol Patel, [facility] 1440 [facility] [address] [phone] Pharmacist Pharmacist 11/22/22 01/09/23 [place] [address] [place], [address] [address] Assigned Neuroscience Provider 01/01/23 12/03/24 Rosemarie Mcdowell RN Supervisor Microwave Diabetes Education 03/17/23 Ravi Brownlee MD [address] [address] Assigned Heart and Vascular Provider 09/04/23 01/03/24 Mitra Kendall, [facility] Lead Senior Fund Accountant Primary Care - CC 12/12/23 Lizet Mann PA-C [address] [place] [address] [place] [address] Assigned Cancer Care Provider 01/04/24 Ravi Brownlee MD [address] [address] Assigned Pulmonology Provider 01/04/24 Nav Hughes MD 6405 [facility] [address] [place] [address] Assigned Heart and Vascular Provider 01/04/24 05/05/24 Manuel Ahn OD 6341 [facility] [place] [address] Paper Bag Making Machinist 01/05/24 Arbaella Fishman MA Financial Resource Worker 01/06/24 03/19/24 Melvin Thalia, [facility] [address] [place], [place] [phone] Pharmacist Pharmacy 01/26/24 Gaurav Valenzuela APRN POWER MARKETER 606 [facility] 106 [place], [place] 22[address] Assigned Sleep Provider 02/04/24 Manuel Ahn OD 6341 [place], [place] 195702 Assigned Surgical Provider 02/04/24 06/02/24 Debbie Mann MD [address] [address] Cardiovascular Disease 02/24/24 Hakeem Chacko MBBS 2945 [place], [place] [phone] Assigned Rheumatology Provider 04/05/24 Debbie Mann MD 1600 [facility] 200 [place], [place] [phone] Assigned Heart and Vascular Provider 05/06/24 Timothy Tejada MD 6341 [place] [phone] Ophthalmology 05/29/24 Timothy Tejada MD 6341 [place] [address] Assigned Surgical Provider 06/03/24 Elsie Roberts APRN POWER MARKETER 1600 [facility] EL[address] [address] Nurse Practitioner Pain Medicine 10/16/24 Cristy Morton MD 1440 [facility] [address] [place] [address] Assigned Pediatric Specialist Provider 11/03/24 Georgie Anguiano PA-C [address] [address] Assigned Neuroscience Provider 12/04/24 documented as of this encounter
--- OUTSIDE RECORDS SUMMARY | 2024-12-06 00:30 | XMS_ITS | Encounter Summary ---
Author Organization [facility] Address [address] [place] [address] Care Team Providers Care Business Professor Name Role Phone Va Glez MD Primary Care Provider Va Glez MD Unavailable Kerry Bernal RN Unavailable Ravi Barillas DPM Unavailable [phone] Christy Campuzano PA-C Unavailable [phone] Hans Cannon MD Unavailable Mitra Kendall SALES ASSOCIATE CASHIER Unavailable Burt Jovel MD Unavailable Estella Hassan [facility] Unavailable Reji Chavez MD Unavailable [phone] Josh Cordero MD, Madhuri Unavailable [phone] Josh Cordero MD, Madhuri Unavailable [phone] Kelsi Hassan MD Unavailable [phone] John Webb MD Unavailable John Webb MD Unavailable [phone] Estella Hassan [facility] Unavailable [phone] Nav Hughes MD Unavailable [phone] Cassandra Mendoza MD Unavailable Estella Hassan RPH Unavailable Mitra Kendall SALES ASSOCIATE CASHIER Unavailable Aurelio Lindsay Kenzie OD Unavailable Ravi Brownlee MD Unavailable Kye Arabella MA Unavailable [phone] Richard Kam MD Unavailable Marisol Patel RPH Unavailable Gaby Vila DO Unavailable Rosemarie Mcdowell RN Unavailable Ravi Brownlee MD Unavailable Mitra Kendall SALES ASSOCIATE CASHIER Unavailable Lizet MannC Unavailable Ravi Brownlee MD Unavailable Nav Hughes MD Unavailable [phone] Manuel Ahn OD Unavailable Kye Arabella MA Unavailable [phone] Thalia Charles RP Unavailable Gaurav Valenzuela APRN BUSINESS TECHNOLOGY ANALYST Unavailable Manuel Ahn OD Unavailable Debbie Mann MD Unavailable Hakeem Chacko Unavailable Debbie Mann MD Unavailable Timothy Tejada MD Unavailable Timothy Tejada MD Unavailable Elsie Roberts APRN BUSINESS TECHNOLOGY ANALYST Unavailable + Cristy Morton MD Unavailable Georgie Anguiano PA-C Unavailable [phone] Encounter Details Date Type Department Care Team (Late st Contact Info) Description 08/08/2020 MyC Medical Advice [address] [address] [facility] [address] [place] [address] Social History Tobacco Use Types Packs/Day Years [...] on file Legal Sex Male 3:29 AM HERBOLOGIST Gender Identity Not on file Sexual Orientation [...] CDT Therapy Visit [facility] [address] [place] [address] Shanta Cooper, MOIZ 12/14/2024 11:20 AM CDT Office Visit [facility] [address] [place] [address] Lizet Mann PA-C [address] [address] [place] [address] 12/17/2024 2:10 PM CDT Office Visit [facility] Orthopedic [facility] 9[address] [facility] 4th [place] [address] Richard Kam MD 500 [place] [address] 12/19/2024 8:20 AM CDT Therapy Visit [address] [place] [address] Shanta Cooper, PT 12/24/2024 5:00 PM CDT Therapy Visit [address] [address] Pattie Casillas, PT 12/25/2024 10:20 AM CDT Therapy Visit [address] [address] Shanta Cooper, PT 01/03/2025 1:00 PM CDT Office Visit [address] [phone] Estella Hassan, [facility] [address] [place] [address] 01/03/2025 1:30 PM CDT Office Visit [address] [address] Va Glez MD [address] [place] [id number] 01/08/2025 1:15 PM CDT Office Visit [facility] [address] [facility] [address] [place] [address] Hakeem Cahcko MBBS [address] [place] [address] Scheduled Procedures Name Priority Associated Diagnoses Date/Ti me INJECTION, EPIDURAL, TRANSFO RAMINAL APPROACH Cervical radiculitis RELEASE, CARPAL TUNNEL, ENDOSCOPIC Right carpal tunnel syndrome documented as of this encounter Visit Diagnoses Not on filedocumented in this encounter Additional Health Concerns Infection Onset Date Last Indicated Resolved Time Rule Out COVID-19 06/22/2021 06/22/2021 06/23/2021 8:58 PM CDT Rule Out COVID-19 01/22/2022 01/22/2022 01/24/2022 1:05 PM HERBOLOGIST Rule Out COVID-19 01/25/2022 01/25/2022 01/25/2022 5:21 AM HERBOLOGIST Influenza 01/25/2022 01/25/2022 02/01/2022 11:4 1 PM HERBOLOGIST Rule Out COVID-19 07/29/2022 07/29/2022 07/31/2022 11:17 AM CDT Rule Out COVID-19 03/23/2023 03/23/2023 03/23/2023 6:30 PM HERBOLOGIST COVID-19 03/23/2023 03/23/2023 04/13/2023 11:4 0 PM HERBOLOGIST Rule Out COVID-19 06/05/2023 06/05/2023 06/05/2023 5:53 PM CDT Rule Out COVID-19 11/06/2023 11/06/2023 11/06/2023 11:05 PM CDT Rule Out COVID-19 11/20/2023 11/20/2023 11/20/2023 6:43 PM CDT Rule Out COVID-19 12/27/2023 12/27/2023 12/29/2023 1:37 PM CDT Rule Out COVID-19 03/01/2024 03/01/2024 03/01/2024 1:11 PM HERBOLOGIST Rule Out COVID-19 07/18/2024 07/18/2024 07/19/2024 5:52 PM CDT Rule Out COVID-19 10/17/2024 10/17/2024 10/17/2024 11:23 PM CDT Rule Out C-difficile 11/04/2024 11/04/2024 025 1:55 AM CDT Assessment Noted Time PHQ-9 Depression Total Score: 7 08/08/19 21 7:03 AM CDT documented as of this encounter Care Teams Business Professor Relationship Specialty [place] [address] [place] [address] PCP - General Family Practice 07/11/14 [place] [address] [place] [address] Assigned PCP 12/16/11 Kerry Bernal RN Personal Advocate & Liaison (PAL) 01/08/19 07/10/23 Ravi Barillas DPM [address] [facility] [address] [place] [address] Assigned Musculoskeletal Provider 03/23/20 10/30/21 Christy Campuzano PA-C [address] [place] [address] [id number] Referring Physician Family Medicine 04/22/20 Hans Cannon MD [address] [place] [address] Resident Pulmonary Disease 04/22/20 Mitra Kendall, SALES ASSOCIATE CASHIER Lead State Comptroller Primary Care - CC 01/08/1901/12 Burt Jovel MD Internal Medicine 05/08/20 12/13/23 Estella Hassan, [facility] [address] [place] [address] Pharmacist Pharmacist 05/26/20 Reji Chavez MD [address] [facility] [address] [place] [phone] Assigned Heart and Vascular Provider 05/18/20 10/30/21 Elaina Moreno MD [address] [place] [address] Assigned Surgical Provider 05/18/20 11/19/22 Elaina Moreno MD [address] [place] [address] Cardiovascular & Thoracic Surgery 08/06/20 Kelsi Hassan MD [address] [place] [address] Assigned Pulmonology Provider 06/28/21 02/05/22 John Webb MD [address] [address] Cardiovascular Disease 08/25/21 John Webb MD [address] 820105 Cardiovascular Disease 08/25/21 Estella Hassan, [facility] [address] [place] [address] Assigned MTM Pharmacist 09/05/21 Nav Hughes MD [address] [place] [address] Assigned Heart and Vascular Provider 10/31/21 09/03/23 Cassandra Mendoza MD ORTHOPAEDIC SURGERY [facility] [address] Assigned Musculoskeletal Provider 10/31/21 08/13/22 Estella Hassan, [facility] [address] [place] [address] Assigned MTM Pharmacist 12/09/21 Mitra Kendall, [facility] Lead State Comptroller Primary Care - CC 01/26/2210/28 Lindsay Carey OD [address] [facility] [place] [address] Ophthalmology 01/29/22 Ravi Brownlee MD [address] [place] [address] Assigned Pulmonology Provider 02/06/22 09/03/23 Arabella Fishman MA Financial Resource Worker 02/22/22 02/23/22 Richard Kam MD [address] [place] [address] Assigned Musculoskeletal Provider 08/14/22 Marisol Patel, [facility] 1440 [facility] [place] [phone] Pharmacist Pharmacist 11/22/22 01/09/23 [place] [address] BC PENA, [address] [address] Assigned Neuroscience Provider 01/01/23 12/03/24 Rosemarie Mcdowell RN Dehairing Machine Tender Diabetes Education 03/17/23 Ravi Brownlee MD [address] 208065 Assigned Heart and Vascular Provider 09/04/23 01/03/24 Mitra Kendall, [facility] Lead State Comptroller Primary Care - CC 12/12/23 Lizet Mann PA-C [address] [place] [address] [place] [address] Assigned Cancer Care Provider 01/04/24 Ravi Brownlee MD [address] [address] Assigned Pulmonology Provider 01/04/24 Nav Hughes MD [address] [facility] [address] [place] [address] Assigned Heart and Vascular Provider 01/04/24 05/05/24 Manuel Ahn OD 6341 [facility] [place] [address] Child Care Education Coordinator 01/05/24 Arabella Fishman MA Financial Resource Worker 01/06/24 03/19/24 Melvin Thalia, [facility] [address] [place], [place] [phone] Pharmacist Pharmacy 01/26/24 Gaurav Valenzuela APRN BUSINESS TECHNOLOGY ANALYST 606 [facility] 106 [place], [place] 9917[address] Assigned Sleep Provider 02/04/24 Manuel Ahn OD 6341 [place], [place] 667272 Assigned Surgical Provider 02/04/24 06/02/24 Debbie Mann MD [address] [address] Cardiovascular Disease 02/24/24 Hakeem Chacko MBBS 2945 [place], [place] [address] Assigned Rheumatology Provider 04/05/24 Debbie Mann MD 1600 [facility] 200 [place], [place] [phone] Assigned Heart and Vascular Provider 05/06/24 Timothy Tejada MD 6341 [place] [phone] Ophthalmology 05/29/24 Timothy Tejada MD 6341 [place] [address] Assigned Surgical Provider 06/03/24 Elsie Roberts APRN BUSINESS TECHNOLOGY ANALYST 1600 [facility] [place] [address] [place] [place] [address] Nurse Practitioner Pain Medicine 10/16/24 Cristy Morton MD 1440 [facility] [place] [address] Assigned Pediatric Specialist Provider 11/03/24 Georgie Anguiano PA-C [address] [address] Assigned Neuroscience Provider 12/04/24 documented as of this encounter
--- OUTSIDE RECORDS SUMMARY | 2024-12-06 00:30 | XMS_ITS | Encounter Summary ---
Author Organization [facility] Address [address] [place] [address] Care Team Providers Care Raw Shellfish Preparer Name Role Phone Va Glez MD Primary Care Provider [phone] Va Glez MD Unavailable Kerry Bernal RN Unavailable [phone] Ravi Barillas DPM Unavailable [phone] Christy Campuzano PA-C Unavailable [phone] Hans Cannon MD Unavailable [phone] Mitra Kendall ROLL DOUGH DIVIDER Unavailable Burt Jovel MD Unavailable Estella Hassan [facility] Unavailable Reji Chavez MD Unavailable Josh Cordero MD, Madhuri Unavailable [phone] Josh Cordero MD, Madhuri Unavailable [phone] Kelsi Hassan MD Unavailable [phone] John Webb MD Unavailable John Webb MD Unavailable Estella Hassan [facility] Unavailable Nav Hughes MD Unavailable [phone] Cassandra Mendoza MD Unavailable Estella Hassan RPH Unavailable Mitra Kendall ROLL DOUGH DIVIDER Unavailable Aurelio Lindsay Kenzie OD Unavailable Ravi Brownlee MD Unavailable Kye Arabella MA Unavailable Richard Kam MD Unavailable Marisol Patel RPH Unavailable Gaby Vila DO Unavailable Rosemarie Mcdowell RN Unavailable Ravi Brownlee MD Unavailable Mitra Kendall ROLL DOUGH DIVIDER Unavailable Lizet MannC Unavailable Ravi Brownlee MD Unavailable Nav Hughes MD Unavailable [phone] Manuel Ahn OD Unavailable Kye Arabella MA Unavailable [phone] Thalia Charles RP Unavailable Gaurav Valenzuela APRN TRAILHEAD MAINTENANCE WORKER Unavailable Manuel Ahn OD Unavailable Debbie Mann MD Unavailable Hakeem Chacko Unavailable Debbie Mann MD Unavailable Timothy Tejada MD Unavailable Timothy Tejada MD Unavailable Elsie Roberts APRN TRAILHEAD MAINTENANCE WORKER Unavailable + Cristy Morton MD Unavailable [phone] Georgie Anguiano PA-C Unavailable Encounter Details Date Type Department Care Team (Late st Contact Info) Description 08/14/2020 MyC Medical Advice [address] [address] Estella Hassan, [facility] [address] [place] [address] Social History Tobacco Use Types Packs/Day Years [...] and Family Not on file 05/31/2019 Attends Taoist Services Not on file 05/30 Active Member [...] points; Administer PHQ-9 if positive 1 08/06/2020 [facility] ional [...] on file Legal Sex Male 3:29 AM SECOND CHEF Gender Identity Not on file Sexual Orientation [...] CDT Therapy Visit [facility] [address] [place] [address] Shanta Cooper, MOIZ 12/14/2024 11:20 AM CDT Office Visit [facility] [address] [place] [address] Lizet Mann PA-C [address] [address] [address] 12/17/2024 2:10 PM CDT Office Visit [facility] Orthopedic [facility] 909 [facility] 4th [place] [address] Richard Kam MD 500 [place] [address] 12/19/2024 8:20 AM CDT Therapy Visit [address] [place] [address] Shanta Cooper, PT 12/24/2024 5:00 PM CDT Therapy Visit [address] [address] Pattie Casillas, PT 12/25/2024 10:20 AM CDT Therapy Visit [address] [address] Shanta Cooper, PT 01/03/2025 1:00 PM CDT Office Visit [address] [phone] Estella Hassan, [facility] [address] [place] [address] 01/03/2025 1:30 PM CDT Office Visit [address] [phone] Va Glez MD [address] [place] [id number] 01/08/2025 1:15 PM CDT Office Visit [facility] 29[address] [facility] [address] [place] [phone] Hakeem Chacko MBBS 6415 [place] [address] Scheduled Procedures Name Priority Associated Diagnoses Date/Ti me INJECTION, EPIDURAL, TRANSFO RAMINAL APPROACH Cervical radiculitis RELEASE, CARPAL TUNNEL, ENDOSCOPIC Right carpal tunnel syndrome documented as of this encounter Visit Diagnoses Not on filedocumented in this encounter Additional Health Concerns Infection Onset Date Last Indicated Resolved Time Rule Out COVID-19 06/22/2021 06/22/2021 06/23/2021 8:58 PM CDT Rule Out COVID-19 01/22/2022 01/22/2022 01/24/2022 1:05 PM SECOND CHEF Rule Out COVID-19 01/25/2022 01/25/2022 01/25/2022 5:21 AM SECOND CHEF Influenza 01/25/2022 01/25/2022 02/01/2022 11:4 1 PM SECOND CHEF Rule Out COVID-19 07/29/2022 07/29/2022 07/31/2022 11:17 AM CDT Rule Out COVID-19 03/23/2023 03/23/2023 03/23/2023 6:30 PM SECOND CHEF COVID-19 03/23/2023 03/23/2023 04/13/2023 11:4 0 PM SECOND CHEF Rule Out COVID-19 06/05/2023 06/05/2023 06/05/2023 5:53 PM CDT Rule Out COVID-19 11/06/2023 11/06/2023 11/06/2023 11:05 PM CDT Rule Out COVID-19 11/20/2023 11/20/2023 11/20/2023 6:43 PM CDT Rule Out COVID-19 12/27/2023 12/27/2023 12/29/2023 1:37 PM CDT Rule Out COVID-19 03/01/2024 03/01/2024 03/01/2024 1:11 PM SECOND CHEF Rule Out COVID-19 07/18/2024 07/18/2024 07/19/2024 5:52 PM CDT Rule Out COVID-19 10/17/2024 10/17/2024 10/17/2024 11:23 PM CDT Rule Out C-difficile 11/04/2024 11/04/2024 025 1:55 AM CDT Assessment Noted Time PHQ-9 Depression Total Score: 7 08/08/19 21 7:03 AM CDT documented as of this encounter Care Teams Raw Shellfish Preparer Relationship Specialty [place] [address] [place] [address] PCP - General Family Practice 07/11/14 [place] [address] [place] [address] Assigned PCP 12/16/11 Kerry Bernal RN Personal Advocate & Liaison (PAL) 01/08/19 07/10/23 Ravi Barillas DPM [address] [facility] [address] [place] [address] Assigned Musculoskeletal Provider 03/23/20 10/30/21 Christy Campuzano PA-C [address] [place] [address] [id number] Referring Physician Family Medicine 04/22/20 Hans Cannon MD [address] [place] [address] Resident Pulmonary Disease 04/22/20 Mitra Kendall, ROLL DOUGH DIVIDER Lead Process Cheese Cooker Primary Care - CC 01/08/1901/12 Burt Jovel MD Internal Medicine 05/08/20 12/13/23 Estella Hassan, [facility] [address] [place] [address] Pharmacist Pharmacist 05/26/20 Reji Chavez MD 6405 [facility] [address] [place] [address] Assigned Heart and Vascular Provider 05/18/20 10/30/21 Elaina Moreno MD [address] [place] [address] Assigned Surgical Provider 05/18/20 11/19/22 Elaina Moreno MD [address] [place] [address] Cardiovascular & Thoracic Surgery 08/06/20 Kelsi Hassan MD [address] [place] [address] Assigned Pulmonology Provider 06/28/21 02/05/22 John Webb MD [address] [address] Cardiovascular Disease 08/25/21 John Webb MD [address] 318615 Cardiovascular Disease 08/25/21 Estella Hassan, [facility] 30[address] [place] [address] Assigned MTM Pharmacist 09/05/21 Nav Hughes MD [address] [place] [address] Assigned Heart and Vascular Provider 10/31/21 09/03/23 Cassandra Mendoza MD ORTHOPAEDIC SURGERY [facility] [address] [address] Assigned Musculoskeletal Provider 10/31/21 08/13/22 Estella Hassan, [facility] [address] [place] [address] Assigned MTM Pharmacist 12/09/21 Mitra Kendall, [facility] Lead Process Cheese Cooker Primary Care - CC 01/26/2210/28 Lindsay Carey OD 3305 [facility] [place] [address] Ophthalmology 01/29/22 Ravi Brownlee MD [address] [place] [address] Assigned Pulmonology Provider 02/06/22 09/03/23 Arabella Fishman MA Financial Resource Worker 02/22/22 02/23/22 Richard Kam MD [address] [place] [address] Assigned Musculoskeletal Provider 08/14/22 Marisol Patel, [facility] [address] [facility] [place] [phone] Pharmacist Pharmacist 11/22/22 01/09/23 [place] [address] [place] PENA, [address] [address] Assigned Neuroscience Provider 01/01/23 12/03/24 Rosemarie Mcdowell RN Payroll Tax Analyst Diabetes Education 03/17/23 Ravi Brownlee MD [address] [address] Assigned Heart and Vascular Provider 09/04/23 01/03/24 Mitra Kendall, [facility] Lead Process Cheese Cooker Primary Care - CC 12/12/23 Lizet Mann PA-C [address] [place] [address] [place] [address] Assigned Cancer Care Provider 01/04/24 Ravi Brownlee MD [address] [address] Assigned Pulmonology Provider 01/04/24 Nav Hughes MD 6405 [facility] [address] [place] [address] Assigned Heart and Vascular Provider 01/04/24 05/05/24 Manuel Ahn OD 6341 [facility] [place] [address] Heel Nailing Machine Operator 01/05/24 Arabella Fishman MA Financial Resource Worker 01/06/24 03/19/24 Melvin Thalia, [facility] [address] [place], [place] [phone] Pharmacist Pharmacy 01/26/24 Gaurav Valenzuela APRN TRAILHEAD MAINTENANCE WORKER 606 [facility] 106 [place], [place] 509324 Assigned Sleep Provider 02/04/24 Manuel Ahn OD 6341 [place], [place] 101142 Assigned Surgical Provider 02/04/24 06/02/24 Debbie Mann MD [address] [address] Cardiovascular Disease 02/24/24 Hakeem Chacko MBBS 2945 [place], [place] [phone] Assigned Rheumatology Provider 04/05/24 Debbie Mann MD 1600 [facility] 200 [place], [place] [phone] Assigned Heart and Vascular Provider 05/06/24 Timothy Tejada MD 6341 [place] [place] [phone] Ophthalmology 05/29/24 Timothy Tejada MD 6341 [place] [address] Assigned Surgical Provider 06/03/24 Elsie Roberts APRN TRAILHEAD MAINTENANCE WORKER 1600 [facility] [place] [place] [address] Nurse Practitioner Pain Medicine 10/16/24 Cristy Morton MD 14[address] [facility] [place] [address] Assigned Pediatric Specialist Provider 11/03/24 Georgie Anguiano PA-C [address] [address] Assigned Neuroscience Provider 12/04/24 documented as of this encounter
--- OUTSIDE RECORDS SUMMARY | 2024-12-06 00:30 | XMS_ITS | Encounter Summary ---
Author Organization [place] Address [address] [place] [address] Care Team Providers Care Silk Screen Printer Machine Name Role Phone Va Glez MD Primary Care Provider Va Glez MD Unavailable Kerry Bernal RN Unavailable Ravi Barillas DPM Unavailable [phone] Christy Campuzano PA-C Unavailable Hans Cannon MD Unavailable [phone] Mitra Kendall DRAIN CLEANER PLUMBER Unavailable [phone] Burt Jovel MD Unavailable [phone] Estella Hassan [facility] Unavailable [phone] Reji Chavez MD Unavailable [phone] Josh Cordero MD, Madhuri Unavailable [phone] Josh Cordero MD, Madhuri Unavailable [phone] Kelsi Hassan MD Unavailable [phone] John Webb MD Unavailable John Webb MD Unavailable Estella Hassan [facility] Unavailable Nav Hughes MD Unavailable [phone] Cassandra Mendoza MD Unavailable Estella Hassan RPH Unavailable Mitra Kendall DRAIN CLEANER PLUMBER Unavailable Aurelio Lindsay Kenzie OD Unavailable Ravi Brownlee MD Unavailable Kye Arabella MA Unavailable [phone] Richard Kam MD Unavailable Marisol Patel RPH Unavailable Gaby Vila DO Unavailable Rosemarie Mcdowell RN Unavailable Ravi Brownlee MD Unavailable Mitra Kendall DRAIN CLEANER PLUMBER Unavailable Lizet MannC Unavailable Ravi Brownlee MD Unavailable Nav Hughes MD Unavailable [phone] Manuel Ahn OD Unavailable Kye Arabella MA Unavailable [phone] Thalia Charles RP Unavailable Gaurav Valenzuela APRN PRODUCT DEVELOPMENT Unavailable Manuel Ahn OD Unavailable Debbie Mann MD Unavailable Hakeem Chacko Unavailable Debbie Mann MD Unavailable Timothy Tejada MD Unavailable Timothy Tejada MD Unavailable Elsie Roberts APRN PRODUCT DEVELOPMENT Unavailable + Cristy Morton MD Unavailable [phone] Georgie Anguiano PA-C Unavailable Encounter Details Date Type Department Care Team (Late st Contact Info) Description 08/16/2020 MyC Medical Advice [address] [address] Estella Hassan, [facility] [address] [place] [address] Social History Tobacco Use Types Packs/Day Years [...] Administer PHQ-9 if positive 1 08/06/2020 [facility] - Occupational [...] file Legal Sex Male 3:29 AM CUSTOMER ENGAGEMENT MANAGER Gender Identity Not on file Sexual [...] Description 12/11/2024 2:10 PM CDT Therapy Visit [facility] [address] [place] [phone] Shanta Cooper, MOIZ 12/14/2024 11:20 AM CDT Office Visit [facility] [address] [place] [phone] Lizet Mann PA-C [address] [address] [place] [address] 12/17/2024 2:10 PM CDT Office Visit [facility] Orthopedic [facility] 909 [facility] 4th [place] [address] Richard Kam MD 500 [place] [address] 12/19/2024 8:20 AM CDT Therapy Visit [address] [place] [address] Shanta Cooper, PT 12/24/2024 5:00 PM CDT Therapy Visit [address] [address] Pattie Casillas, PT 12/25/2024 10:20 AM CDT Therapy Visit [address] [address] Shanta Cooper, PT 01/03/2025 1:00 PM CDT Office Visit [address] [phone] Estella Hassan, [facility] [address] [place] [address] 01/03/2025 1:30 PM CDT Office Visit [address] [phone] Va Glez MD [address] [place] [id number] 01/08/2025 1:15 PM CDT Office Visit [facility] [address] [facility] [address] [place] [phone] Hakeem Chacko MBBS [address] [place] [address] Scheduled Procedures Name Priority Associated Diagnoses Date/Ti [...] COVID-19 01/22/2022 01/22/2022 01/24/2022 1:05 PM CUSTOMER ENGAGEMENT MANAGER Rule Out COVID-19 01/25/2022 01/25/2022 01/25/2022 5:21 AM CUSTOMER ENGAGEMENT MANAGER Influenza 01/25/2022 01/25/2022 02/01/2022 11:4 1 PM CUSTOMER ENGAGEMENT MANAGER Rule Out COVID-19 07/29/2022 07/29/2022 07/31/2022 11:17 AM CDT Rule Out COVID-19 03/23/2023 03/23/2023 03/23/2023 6:30 PM CUSTOMER ENGAGEMENT MANAGER COVID-19 03/23/2023 03/23/2023 04/13/2023 11:4 0 PM CUSTOMER ENGAGEMENT MANAGER Rule Out COVID-19 06/05/2023 06/05/2023 06/05/2023 5:53 PM CDT Rule Out COVID-19 11/06/2023 11/06/2023 11/06/2023 11:05 PM CDT Rule Out COVID-19 11/20/2023 11/20/2023 11/20/2023 6:43 PM CDT Rule Out COVID-19 12/27/2023 12/27/2023 12/29/2023 1:37 PM CDT Rule Out COVID-19 03/01/2024 03/01/2024 03/01/2024 1:11 PM CUSTOMER ENGAGEMENT MANAGER Rule Out COVID-19 07/18/2024 07/18/2024 07/19/2024 5:52 PM CDT Rule Out COVID-19 10/17/2024 10/17/2024 10/17/2024 11:23 PM CDT Rule Out C-difficile 11/04/2024 11/04/2024 025 1:55 AM CDT Assessment Noted Time PHQ-9 Depression Total Score: 7 08/08/19 21 7:03 AM CDT documented as of this encounter Care Teams Silk Screen Printer Machine Relationship Specialty [place] [address] [place] [address] PCP - General Family Practice 07/11/14 [place] [address] [place] [address] Assigned PCP 12/16/11 Kerry Bernal RN Personal Advocate & Liaison (PAL) 01/08/19 07/10/23 Ravi Barillas DPM [address] [facility] [address] [place] [address] Assigned Musculoskeletal Provider 03/23/20 10/30/21 Christy Campuzano PA-C [address] [place] [address] 692882 Referring Physician Family Medicine 04/22/20 Hans Cannon MD [address] [place] [address] Resident Pulmonary Disease 04/22/20 Mitra Kendall, DRAIN CLEANER PLUMBER Lead Communications Lead Primary Care - CC 01/08/1901/12 Burt Jovel MD Internal Medicine 05/08/20 12/13/23 Estella Hassan, [facility] [address] [place] [address] Pharmacist Pharmacist 05/26/20 Reji Chavez MD 6405 [facility] [address] [place] [phone] Assigned Heart and Vascular Provider 05/18/20 10/30/21 Elaina Moreno MD [address] [place] [address] Assigned Surgical Provider 05/18/20 11/19/22 Elaina Moreno MD [address] [place] [address] Cardiovascular & Thoracic Surgery 08/06/20 Kelsi Hassan MD [address] [place] [address] Assigned Pulmonology Provider 06/28/21 02/05/22 John Webb MD [address] [address] Cardiovascular Disease 08/25/21 John Webb MD [address] 142325 Cardiovascular Disease 08/25/21 Estella Hassan, [facility] [address] [place] [address] Assigned MTM Pharmacist 09/05/21 Nav Hughes MD [address] [place] [address] Assigned Heart and Vascular Provider 10/31/21 09/03/23 Cassandra Mendoza MD ORTHOPAEDIC SURGERY [facility] [address] Assigned Musculoskeletal Provider 10/31/21 08/13/22 Estella Hassan, [facility] [address] [place] [address] Assigned MTM Pharmacist 12/09/21 Mitra Kendall, [facility] Lead Communications Lead Primary Care - CC 01/26/2210/28 Lindsay Carey OD 3305 [facility] [place] [address] Ophthalmology 01/29/22 Ravi Brownlee MD [address] [place] [address] Assigned Pulmonology Provider 02/06/22 09/03/23 Arabella Fishman MA Financial Resource Worker 02/22/22 02/23/22 Richard Kam MD [address] [place] [address] Assigned Musculoskeletal Provider 08/14/22 Marisol Patel, [facility] 1440 [facility] [place] [id number] Pharmacist Pharmacist 11/22/22 01/09/23 [place] [address] [place] PE[place], [address] [address] Assigned Neuroscience Provider 01/01/23 12/03/24 Rosemarie Mcdowell RN Candy Attendant Diabetes Education 03/17/23 Ravi Brownlee MD [address] [phone] Assigned Heart and Vascular Provider 09/04/23 01/03/24 Mitra Kendall, [facility] Lead Communications Lead Primary Care - CC 12/12/23 Lizet Mann PA-C [address] [place] [address] [place] [address] Assigned Cancer Care Provider 01/04/24 Ravi Brownlee MD [address] [address] Assigned Pulmonology Provider 01/04/24 Nav Hughes MD 6405 [facility] [address] [place] [address] Assigned Heart and Vascular Provider 01/04/24 05/05/24 Manuel Ahn OD 6341 [facility] [place] [address] Unleavened Dough Mixer 01/05/24 Arabella Fishman MA Financial Resource Worker 01/06/24 03/19/24 Melvin Thalia, [facility] [address] [place], [place] [phone] Pharmacist Pharmacy 01/26/24 Gaurav Valenzuela APRN PRODUCT DEVELOPMENT 606 [facility] 106 [place], [place] [address] Assigned Sleep Provider 02/04/24 Manuel Ahn OD 6341 [place], [place] 626222 Assigned Surgical Provider 02/04/24 06/02/24 Debbie Mann MD [address] [address] Cardiovascular Disease 02/24/24 Hakeem Chacko MBBS 2945 [place], [place] [phone] Assigned Rheumatology Provider 04/05/24 Debbie Mann MD 1600 [facility] 200 [place], [place] [phone] Assigned Heart and Vascular Provider 05/06/24 Timothy Tejada MD 6341 [facility] [place] [phone] Ophthalmology 05/29/24 Timothy Tejada MD 6341 [place] [address] Assigned Surgical Provider 06/03/24 Elsie Roberts APRN PRODUCT DEVELOPMENT 1600 [facility] [place] [address] [place] [place] [address] Nurse Practitioner Pain Medicine 10/16/24 Cristy Morton MD 1440 [facility] [place] [address] Assigned Pediatric Specialist Provider 11/03/24 Georgie Anguiano PA-C [address] [address] Assigned Neuroscience Provider 12/04/24 documented as of this encounter
--- OUTSIDE RECORDS SUMMARY | 2024-12-06 00:30 | XMS_ITS | Encounter Summary ---
Author Organization [place] Address [address] [place] [address] Care Team Providers Care Bathhouse Keeper Name Role Phone Va Glez MD Primary Care Provider [phone] Va Glez MD Unavailable Kerry Bernal RN Unavailable Ravi Barillas DPM Unavailable [phone] Christy Campuzano PA-C Unavailable Hans Cannon MD Unavailable Mitra Kendall ONLINE PROJECT MANAGER Unavailable Burt Jovel MD Unavailable [phone] Estella Hassan [facility] Unavailable [phone] Reji Chavez MD Unavailable Josh Cordero MD, Madhuri Unavailable [phone] Josh Cordero MD, Madhuri Unavailable [phone] Kelsi Hassan MD Unavailable [phone] John Webb MD Unavailable [phone] John Webb MD Unavailable Estella Hassan [facility] Unavailable Nav Hughes MD Unavailable [phone] Cassandra Mendoza MD Unavailable Estella Hassan RPH Unavailable Mitra Kendall ONLINE PROJECT MANAGER Unavailable Aurelio Lindsay Kenzie OD Unavailable Ravi Brownlee MD Unavailable Kye Arabella MA Unavailable [phone] Richard Kam MD Unavailable Marisol Patel RPH Unavailable Gaby Vila DO Unavailable Rosemarie Mcdowell RN Unavailable Ravi Brownlee MD Unavailable Mitra Kendall ONLINE PROJECT MANAGER Unavailable Lizet MannC Unavailable Ravi Brownlee MD Unavailable Nav Hughes MD Unavailable [phone] Manuel Ahn OD Unavailable Kye Arabella MA Unavailable [phone] Thalia Charles RP Unavailable Gaurav Valenzuela APRN SURVEY ASSOCIATE Unavailable Manuel Ahn OD Unavailable Debbie Mann MD Unavailable Hakeem Chacko Unavailable Debbie Mann MD Unavailable Timothy Tejada MD Unavailable Timothy Tejada MD Unavailable Elsie Roberts APRN SURVEY ASSOCIATE Unavailable + Cristy Morton MD Unavailable [phone] Georgie Anguiano PA-C Unavailable Encounter Details Date Type Department Care Team (Late st Contact Info) Description 08/08/2020 MyC Medical Advice [address] [address] [facility] [address] [place] [address] Social History Tobacco Use Types Packs/Day Years [...] points; Administer PHQ-9 if positive 1 08/06/2020 [facility] - [...] on file Legal Sex Male 3:29 AM PET HANDLER Gender Identity Not on file Sexual Orientation [...] Therapy Visit [facility] [address] [place] [address] Shanta Cooper, MOIZ 12/14/2024 11:20 AM CDT Office Visit [facility] [address] [place] [address] Lizet Mann PA-C [address] [facility] [place] [address] 12/17/2024 2:10 PM CDT Office Visit [facility] Orthopedic [facility] 909 [facility] 4th [place] [address] Richard Kam MD 500 [place] [address] 12/19/2024 8:20 AM CDT Therapy Visit [address] [place] [address] Shanta Cooper, PT 12/24/2024 5:00 PM CDT Therapy Visit [address] [address] Pattie Casillas, PT 12/25/2024 10:20 AM CDT Therapy Visit [address] [address] Shanta Cooper, PT 01/03/2025 1:00 PM CDT Office Visit [address] [phone] Estella Hassan, [facility] 30[address] [place] [address] 01/03/2025 1:30 PM CDT Office Visit [address] [address] Va Glez MD [address] [place] [id number] 01/08/2025 1:15 PM CDT Office Visit [facility] 2945 [facility] [address] [place] [phone] Hakeem Chacko MBBS 1175 [place] [address] Scheduled Procedures Name Priority Associated Diagnoses Date/Ti me INJECTION, EPIDURAL, TRANSFO RAMINAL APPROACH Cervical radiculitis RELEASE, CARPAL TUNNEL, ENDOSCOPIC Right carpal tunnel syndrome documented as of this encounter Visit Diagnoses Not on filedocumented in this encounter Additional Health Concerns Infection Onset Date Last Indicated Resolved Time Rule Out COVID-19 06/22/2021 06/22/2021 06/23/2021 8:58 PM CDT Rule Out COVID-19 01/22/2022 01/22/2022 01/24/2022 1:05 PM PET HANDLER Rule Out COVID-19 01/25/2022 01/25/2022 01/25/2022 5:21 AM PET HANDLER Influenza 01/25/2022 01/25/2022 02/01/2022 11:4 1 PM PET HANDLER Rule Out COVID-19 07/29/2022 07/29/2022 07/31/2022 11:17 AM CDT Rule Out COVID-19 03/23/2023 03/23/2023 03/23/2023 6:30 PM PET HANDLER COVID-19 03/23/2023 03/23/2023 04/13/2023 11:4 0 PM PET HANDLER Rule Out COVID-19 06/05/2023 06/05/2023 06/05/2023 5:53 PM CDT Rule Out COVID-19 11/06/2023 11/06/2023 11/06/2023 11:05 PM CDT Rule Out COVID-19 11/20/2023 11/20/2023 11/20/2023 6:43 PM CDT Rule Out COVID-19 12/27/2023 12/27/2023 12/29/2023 1:37 PM CDT Rule Out COVID-19 03/01/2024 03/01/2024 03/01/2024 1:11 PM PET HANDLER Rule Out COVID-19 07/18/2024 07/18/2024 07/19/2024 5:52 PM CDT Rule Out COVID-19 10/17/2024 10/17/2024 10/17/2024 11:23 PM CDT Rule Out C-difficile 11/04/2024 11/04/2024 025 1:55 AM CDT Assessment Noted Time PHQ-9 Depression Total Score: 7 08/08/19 21 7:03 AM CDT documented as of this encounter Care Teams Bathhouse Keeper Relationship Specialty [place] [address] [place] [address] PCP - General Family Practice 07/11/14 [place] [address] [place] [address] Assigned PCP 12/16/11 Kerry Bernal RN Personal Advocate & Liaison (PAL) 01/08/19 07/10/23 Ravi Barillas DPM [address] [facility] [address] [place] [address] Assigned Musculoskeletal Provider 03/23/20 10/30/21 Christy Campuzano PA-C [address] [place] [address] 768842 Referring Physician Family Medicine 04/22/20 Hans Cannon MD [address] [place] [address] Resident Pulmonary Disease 04/22/20 Mitra Kendall, ONLINE PROJECT MANAGER Lead Flux Plant Operator Primary Care - CC 01/08/1901/12 Burt Jovel MD Internal Medicine 05/08/20 12/13/23 Estella Hassan, [facility] 3033 [place] [address] Pharmacist Pharmacist 05/26/20 Reji Chavez MD 6405 [facility] [address] [place] [address] Assigned Heart and Vascular Provider 05/18/20 10/30/21 Elaina Moreno MD [address] [place] [address] Assigned Surgical Provider 05/18/20 11/19/22 Elaina Moreno MD [address] [place] [address] Cardiovascular & Thoracic Surgery 08/06/20 Kelsi Hassan MD [address] [place] [address] Assigned Pulmonology Provider 06/28/21 02/05/22 John Webb MD [address] [address] Cardiovascular Disease 08/25/21 John Webb MD [address] 663005 Cardiovascular Disease 08/25/21 Estella Hassan, [facility] 30[address] [place] [address] Assigned MTM Pharmacist 09/05/21 Nav Hughes MD [address] [place] [address] Assigned Heart and Vascular Provider 10/31/21 09/03/23 Cassandra Mendoza MD ORTHOPAEDIC SURGERY [facility] [address] Assigned Musculoskeletal Provider 10/31/21 08/13/22 Estella Hassan, [facility] [address] [place] [address] Assigned MTM Pharmacist 12/09/21 Mitra Kendall, [facility] Lead Flux Plant Operator Primary Care - CC 01/26/2210/28 Lindsay Carey OD 3305 [facility] [place] [address] Ophthalmology 01/29/22 Ravi Brownlee MD [address] [place] [address] Assigned Pulmonology Provider 02/06/22 09/03/23 Arabella Fishman MA Financial Resource Worker 02/22/22 02/23/22 Richard Kam MD [address] [place] [address] Assigned Musculoskeletal Provider 08/14/22 Marisol Patel, [facility] 1440 [facility] [place] [place] [id number] Pharmacist Pharmacist 11/22/22 01/09/23 [place] [address] [place] PENA, [address] [address] Assigned Neuroscience Provider 01/01/23 12/03/24 Rosemarie Mcdowell RN Rough Patcher Diabetes Education 03/17/23 Ravi Brownlee MD [address] [address] Assigned Heart and Vascular Provider 09/04/23 01/03/24 Mitra Kendall, [facility] Lead Flux Plant Operator Primary Care - CC 12/12/23 Lizet Mann PA-C [address] [place] [address] [place] [address] Assigned Cancer Care Provider 01/04/24 Ravi Brownlee MD [address] [address] Assigned Pulmonology Provider 01/04/24 Nav Hughes MD 6405 [facility] [address] [place] [address] Assigned Heart and Vascular Provider 01/04/24 05/05/24 Manuel Ahn OD 6341 [facility] [address] Pusher Operator 01/05/24 Arabella Fishman MA Financial Resource Worker 01/06/24 03/19/24 Melvin Thalia, [facility] [address] [place], [place] [phone] Pharmacist Pharmacy 01/26/24 Gaurav Valenzuela APRN SURVEY ASSOCIATE 606 [facility] 106 [place], [place] [address] Assigned Sleep Provider 02/04/24 Manuel Ahn OD 6341 [place], [place] 517562 Assigned Surgical Provider 02/04/24 06/02/24 Debbie Mann MD [address] [address] Cardiovascular Disease 02/24/24 Hakeem Chacko MBBS 2945 [place], [place] [phone] Assigned Rheumatology Provider 04/05/24 Debbie Mann MD 1600 [facility] 200 [place], [place] [phone] Assigned Heart and Vascular Provider 05/06/24 Timothy Tejada MD 6341 [place] [phone] Ophthalmology 05/29/24 Timothy Tejada MD 6341 [place] [address] Assigned Surgical Provider 06/03/24 Elsie Roberts APRN SURVEY ASSOCIATE 1600 [facility] [place] [address] [place] [address] Nurse Practitioner Pain Medicine 10/16/24 Cristy Morton MD 1440 [facility] [place] [address] Assigned Pediatric Specialist Provider 11/03/24 Georgie Anguiano PA-C [address] [address] Assigned Neuroscience Provider 12/04/24 documented as of this encounter
--- OUTSIDE RECORDS SUMMARY | 2024-12-06 00:30 | XMS_ITS | Encounter Summary ---
Author Organization [place] Address [address] [place] [address] Care Team Providers Care Full Stack Engineer Name Role Phone Va Glez MD Primary Care Provider [phone] Va Glez MD Unavailable Kerry Bernal RN Unavailable [phone] Ravi Barillas DPM Unavailable [phone] Christy Campuzano PA-C Unavailable Hans Cannon MD Unavailable Mitra Kendall VALET ATTENDANT Unavailable [phone] Burt Jovel MD Unavailable Estella Hassan [facility] Unavailable Reji Chavez MD Unavailable Josh Cordero MD, Madhuri Unavailable [phone] Josh Cordero MD, Madhuri Unavailable [phone] Kelsi Hassan MD Unavailable [phone] John Webb MD Unavailable John Webb MD Unavailable [phone] Estella Hassan [facility] Unavailable [phone] Nav Hughes MD Unavailable [phone] Cassandra Mendoza MD Unavailable Estella Hassan RPH Unavailable Mitra Kendall VALET ATTENDANT Unavailable Aurelio Lindsay Kenzie OD Unavailable Ravi Brownlee MD Unavailable Kye Arabella MA Unavailable [phone] Richard Kam MD Unavailable Marisol Patel RPH Unavailable Gaby Vila DO Unavailable Rosemarie Mcdowell RN Unavailable Ravi Brownlee MD Unavailable Mitra Kendall VALET ATTENDANT Unavailable Lizet MannC Unavailable Ravi Brownlee MD Unavailable Nav Hughes MD Unavailable [phone] Manuel Ahn OD Unavailable Kye Arabella MA Unavailable [phone] Thalia Charles RP Unavailable Gaurav Valenzuela APRN IRONWORKER Unavailable Manuel Ahn OD Unavailable Debbie Mann MD Unavailable Hakeem Chacko Unavailable Debbie Mann MD Unavailable Timothy Tejada MD Unavailable Timothy Tejada MD Unavailable Elsie Roberts APRN IRONWORKER Unavailable + Cristy Morton MD Unavailable Georgie Anguiano PA-C Unavailable [phone] Encounter Details Date Type Department Care Team (Late st Contact Info) Description 08/15/2020 MyC Medical Advice [address] [address] Estella Hassan, [facility] [address] [place] [address] Social History Tobacco Use Types Packs/Day Years [...] points; Administer PHQ-9 if positive 1 08/06/2020 [facility] of Occupat ional Health [...] file Legal 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 909 [facility] 4th [place] [address] Richard Kam MD 500 [place] [address] 12/19/2024 8:20 AM CDT Therapy Visit [address] [place] [phone] Shanta Cooper, PT 12/24/2024 5:00 PM CDT Therapy Visit [address] [address] Pattie Casillas, PT 12/25/2024 10:20 AM CDT Therapy Visit [address] [address] Shanta Cooper, PT 01/03/2025 1:00 PM CDT Office Visit [address] [phone] Estella Hassan, [facility] [address] [place] [address] 01/03/2025 1:30 PM CDT Office Visit [address] [address] Va Glez MD [address] [place] [id number] 01/08/2025 1:15 PM CDT Office Visit [facility] [address] [employer] [address] [place] [phone] Hakeem Chacko MBBS [address] [place] [address] Scheduled Procedures Name Priority Associated Diagnoses Date/Ti [...] COVID-19 01/22/2022 01/22/2022 01/24/2022 1:05 PM SOCIAL WORK SUPERVISOR Rule Out COVID-19 01/25/2022 01/25/2022 01/25/2022 5:21 AM SOCIAL WORK SUPERVISOR Influenza 01/25/2022 01/25/2022 02/01/2022 11:4 1 PM SOCIAL WORK SUPERVISOR Rule Out COVID-19 07/29/2022 07/29/2022 07/31/2022 11:17 AM CDT Rule Out COVID-19 03/23/2023 03/23/2023 03/23/2023 6:30 PM SOCIAL WORK SUPERVISOR COVID-19 03/23/2023 03/23/2023 04/13/2023 11:4 0 PM SOCIAL WORK SUPERVISOR Rule Out COVID-19 06/05/2023 06/05/2023 06/05/2023 5:53 PM CDT Rule Out COVID-19 11/06/2023 11/06/2023 11/06/2023 11:05 PM CDT Rule Out COVID-19 11/20/2023 11/20/2023 11/20/2023 6:43 PM CDT Rule Out COVID-19 12/27/2023 12/27/2023 12/29/2023 1:37 PM CDT Rule Out COVID-19 03/01/2024 03/01/2024 03/01/2024 1:11 PM SOCIAL WORK SUPERVISOR Rule Out COVID-19 07/18/2024 07/18/2024 07/19/2024 5:52 PM CDT Rule Out COVID-19 10/17/2024 10/17/2024 10/17/2024 11:23 PM CDT Rule Out C-difficile 11/04/2024 11/04/2024 025 1:55 AM CDT Assessment Noted Time PHQ-9 Depression Total Score: 7 08/08/19 21 7:03 AM CDT documented as of this encounter Care Teams Full Stack Engineer Relationship Specialty [place] [address] [place] [address] PCP - General Family Practice 07/11/14 [place] [address] [place] [address] Assigned PCP 12/16/11 Kerry Bernal RN Personal Advocate & Liaison (PAL) 01/08/19 07/10/23 Ravi Barillas DPM [address] [facility] [address] [place] [address] Assigned Musculoskeletal Provider 03/23/20 10/30/21 Christy Campuzano PA-C [address] [place] [address] 744422 Referring Physician Family Medicine 04/22/20 Hans Cannon MD [address] [place] [address] Resident Pulmonary Disease 04/22/20 Mitra Kendall, VALET ATTENDANT Lead Third Cook Primary Care - CC 01/08/1901/12 Burt Jovel MD Internal Medicine 05/08/20 12/13/23 Estella Hassan, [facility] [address] [place] [address] Pharmacist Pharmacist 05/26/20 Reji Chavez MD [address] [facility] [address] [place] [phone] Assigned Heart and Vascular Provider 05/18/20 10/30/21 Elaina Moreno MD [address] [place] [address] Assigned Surgical Provider 05/18/20 11/19/22 Elaina Moreno MD [address] [place] [address] Cardiovascular & Thoracic Surgery 08/06/20 Kelsi Hassan MD [address] [place] [address] Assigned Pulmonology Provider 06/28/21 02/05/22 John Webb MD [address] [address] Cardiovascular Disease 08/25/21 John Webb MD [address] 503815 Cardiovascular Disease 08/25/21 Estella Hassan, [facility] [address] [place] [address] Assigned MTM Pharmacist 09/05/21 Nav Hughes MD [address] [place] [address] Assigned Heart and Vascular Provider 10/31/21 09/03/23 Cassandra Mendoza MD ORTHOPAEDIC SURGERY [facility] [address] [address] Assigned Musculoskeletal Provider 10/31/21 08/13/22 Estella Hassan, [facility] [address] [place] [address] Assigned MTM Pharmacist 12/09/21 Mitra Kendall, [facility] Lead Third Cook Primary Care - CC 01/26/2210/28 Lindsay Carey OD [address] [facility] [place] [address] Ophthalmology 01/29/22 Ravi Brownlee MD [address] [place] [address] Assigned Pulmonology Provider 02/06/22 09/03/23 Arabella Fishman MA Financial Resource Worker 02/22/22 02/23/22 Richard Kam MD [address] [place] [address] Assigned Musculoskeletal Provider 08/14/22 Marisol Patel, [facility] [address] [facility] [place] [place] [phone] Pharmacist Pharmacist 11/22/22 01/09/23 [place] [address] [place], [address] [address] Assigned Neuroscience Provider 01/01/23 12/03/24 Rosemarie Mcdowell RN Inspector Multifocal Lens Diabetes Education 03/17/23 Ravi Brownlee MD [address] 533665 Assigned Heart and Vascular Provider 09/04/23 01/03/24 Mitra Kendall, [facility] Lead Third Cook Primary Care - CC 12/12/23 Lizet Mann PA-C [address] [place] [address] [place] [address] Assigned Cancer Care Provider 01/04/24 Ravi Brownlee MD [address] [address] Assigned Pulmonology Provider 01/04/24 Nav Hughes MD 6405 [facility] [address] [place] [address] Assigned Heart and Vascular Provider 01/04/24 05/05/24 Manuel Ahn OD [address] [place] [address] Hedis Registered Nurse Rn 01/05/24 Arabella Fishman MA Financial Resource Worker 01/06/24 03/19/24 Melvin Thalia, [facility] [address] [place], [place] [phone] Pharmacist Pharmacy 01/26/24 Gaurav Valenzuela APRN IRONWORKER 606 [facility] 106 [place], [place] 13[address] Assigned Sleep Provider 02/04/24 Manuel Ahn OD 6341 [place], [place] 366462 Assigned Surgical Provider 02/04/24 06/02/24 Debbie Mann MD [address] [address] Cardiovascular Disease 02/24/24 Hakeem Chacko MBBS [address] [place], [place] [address] Assigned Rheumatology Provider 04/05/24 Debbie Mann MD 1600 [facility] 200 [place], [place] [address] Assigned Heart and Vascular Provider 05/06/24 Timothy Tejada MD 6341 [place] [phone] Ophthalmology 05/29/24 Timothy Tejada MD 6341 [place] [address] Assigned Surgical Provider 06/03/24 Elsie Roberts APRN IRONWORKER 1600 [facility] [place] [address] [place] [place] [address] Nurse Practitioner Pain Medicine 10/16/24 Cristy Morton MD 1440 [facility] [place] [address] Assigned Pediatric Specialist Provider 11/03/24 Georgie Anguiano PA-C [address] [address] Assigned Neuroscience Provider 12/04/24 documented as of this encounter
--- OUTSIDE RECORDS SUMMARY | 2024-12-06 00:31 | XMS_ITS | Encounter Summary ---
Author Organization [place] Address [address] [place] [address] Care Team Providers Care Deck Lid Fitter Name Role Phone Va Glez MD Primary Care Provider [phone] Va Glez MD Unavailable Christy CampuzanoC Unavailable [phone] Hans Cannon MD Unavailable Estella Hassan [facility] Unavailable Josh Cordero MD, Madhuri Unavailable [phone] John Webb MD Unavailable [phone] John Webb MD Unavailable [phone] Estella Hassan [facility] Unavailable Lindsay Carey OD Unavailable Richard Kam MD Unavailable Gaby Vila DO Unavailable Rosemarie Mcdowell RN Unavailable Mitra Kendall CONTRACT WRITER Unavailable [phone] Lizet Mann PA-C Unavailable Ravi Brownlee MD Unavailable [phone] Manuel Ahn OD Unavailable Thalia Charles [facility] Unavailable [phone] Gaurav Valenzuela TOWN PLANNER YARD DRIVER Unavailable [phone] Debbie Mann MD Unavailable [phone] Hakeem Chacko MB Unavailable Debbie Mann MD Unavailable [phone] Timothy Tejada MD Unavailable [phone] Timothy Tejada MD Unavailable [phone] Elsie Roberts TOWN PLANNER YARD DRIVER Unavailable + Cristy Morton MD Unavailable [phone] Georgie Anguiano PA-C Unavailable [phone] Encounter Details Date Type Department Care Team (Late st Contact Info) Description 07/12/2024 MyC Medical Advice [facility] Care Coordination [facility] [address] [place] [phone] Josefina Patel Social History Tobacco Use Types Packs/Day Years [...] re latives? 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 Gender Identity Not on file Sexual Orientation Not on file Occupation Industry Job Start Date Job End Date Not on file Not on file Not on file Not on file documented as of this encounter Plan of Treatment Upcoming Encounters Date Type Department Care Team (Late st Contact Info) Description 12/11/2024 2:10 PM CDT Therapy Visit [place] [address] [place] [address] Shanta Cooper, PT 12/14/2024 11:20 AM CDT Office Visit [address] [address] Lizet Mann PA-C [address] [place] [address] 12/17/2024 2:10 PM CDT Office Visit [facility] Orthopedic [address] [place] [phone] Richard Kam MD [address] [place] [address] 12/19/2024 8:20 AM CDT Therapy Visit [place] [address] [place] [address] Shanta Cooper, PT 12/24/2024 5:00 PM CDT Therapy Visit [place] [address] [place] [phone] Pattie Casillas, PT 12/25/2024 10:20 AM CDT Therapy Visit [place] [address] [place] [phone] Shanta Cooper, PT 01/03/2025 1:00 PM CDT Office Visit [facility] [address] [place] [phone] Estella Hassan, [facility] [address] [place] [address] 01/03/2025 1:30 PM CDT Office Visit [facility] [address] [place] [phone] [place] [address] [place], [place] [phone] 01/08/2025 1:15 PM CDT Office Visit [facility] 2945 [facility] 200 [place] [address] Hakeem Chacko MBBS 2945 [place] [address] Scheduled Procedures Name Priority Associated Diagnoses Date/Ti [...] job and will access resources that the [employer] offers. . Sarted new job 4. Continue [...] by household income. 2. I will contact [employer] [facility] to ask about medicare plans and if there are saving programs I qualify for by by calling [phone]. 3. I will see if I am eligible for unemployment after losing my job. I will call [phone] to ask for assistance with unemployment application. 4. I will apply for jobs. I will work with [employer] in finding a job (Empowerment.) 5. I will access [employer] and ask about financial resources (such as [...] I will continue working with therapist at [place] [facility]. 2. I will establish with Psychiatry. Planning to schedule with Ronnie. 3. I will meet with [facility] mold yard worker Manjula Gresham. 4. I will look in to attending an IOP program. I will discuss with my [place] [facility] therapist and number provided for [facility] - [phone] to schedule assessment fr IOP program. 5. I will go to [facility] if I have concerning mental health symptoms. 6. I will access [facility] if needed by calling [phone]. 7. I will consider calling [facility] Adult Mental health intake at [phone]. documented as of this encounter Visit Diagnoses [...] accurate information and submit it to the [facility]. 3. I will update [facility] [...] Noted Time PHQ-9 Depression Total Score: 11 025 4:42 PM CDT documented as of this encounter Care Teams Deck Lid Fitter Relationship Specialty [place] [address] [place], [place] [phone] PCP - General Family Practice 07/11/14 [place] [address] [place] [address] Assigned PCP 12/16/11 Christy Campuzano PA-C [address] [place] [address] 267482 Referring Physician Family Medicine 04/22/20 Hans Cannon MD [address] [place] [address] Resident Pulmonary Disease 04/22/20 Estella Hassan, [facility] [address] [place], [place] [address] Pharmacist Pharmacist 05/26/20 Elaina Moreno MD 909 [place] [address] Cardiovascular & Thoracic Surgery 08/06/20 John Webb MD [address] [address] Cardiovascular Disease 08/25/21 John Webb MD [address] [address] Cardiovascular Disease 08/25/21 Estella Hassan, [facility] [address] [place] [address] Assigned MTM Pharmacist 12/09/21 Lindsay Carey OD [address] [facility] [place] [address] Ophthalmology 01/29/22 Richard Kam MD 500 [place], [place] 2647[address] Assigned Musculoskeletal Provider 08/14/22 [place] [address] [place] [address] 231407 Assigned Neuroscience Provider 01/01/23 12/03/24 Rosemarie Mcdowell, RN Home Service Advisor Diabetes Education 03/17/23 Mitra Kendall, CONTRACT WRITER Lead Clinical Research Management Associate Primary Care - CC 12/12/23 Lizet Mann PA-C [address] [place] [address] Assigned Cancer Care Provider 01/04/24 Ravi Brownlee MD 420 [facility] 276 [place] [address] Assigned Pulmonology Provider 01/04/24 Manuel Ahn OD 6341 [place] [address] Conveyor Line Bakery Worker 01/05/24 Thalia Charles [facility] [address] [place], [place] [phone] Pharmacist Pharmacy 01/26/24 Gaurav Valenzuela APRN YARD DRIVER 606 [facility] 106 [place] [address] Assigned Sleep Provider 02/04/24 Debbie Mann MD 1600 [facility] 200 [place], [place] [phone] Cardiovascular Disease 02/24/24 Hakeem Chacko MBBS 2945 [place] [address] Assigned Rheumatology Provider 04/05/24 Debbie Mann MD 1600 [facility] 200 [place] [address] Assigned Heart and Vascular Provider 05/06/24 Timothy Tejada MD 6341 [place] [phone] Ophthalmology 05/29/24 Timothy Tejada MD [address] [place] [place] [address] Assigned Surgical Provider 06/03/24 Elsie Roberts APRN YARD DRIVER 1600 [facility] [place] [address] [place] [address] Nurse Practitioner Pain Medicine 10/16/24 Cristy Morton MD [facility] [place] [id number] Assigned Pediatric Specialist Provider 11/03/24 Georgie Anguiano PA-C [address] [address] Assigned Neuroscience Provider 12/04/24 documented as of this encounter
--- OUTSIDE RECORDS SUMMARY | 2024-12-06 00:31 | XMS_ITS | Encounter Summary ---
Author Organization [facility] Address [address] [place] [address] Care Team Providers Care Sanitation Truck Cleaner Name Role Phone Va Glez MD Primary Care Provider Va Glez MD Unavailable Christy CampuzanoC Unavailable [phone] Hans Cannon MD Unavailable Estella Hassan [facility] Unavailable [phone] Josh Cordero MD, Madhuri Unavailable [phone] John Webb MD Unavailable John Webb MD Unavailable [phone] Estella Hassan [facility] Unavailable [phone] Lindsay Carey OD Unavailable Richard Kam MD Unavailable Gaby Vila DO Unavailable [phone] Rosemarie Mcdowell RN Unavailable [phone] Mitra Kendall [facility] FAC[facility]Y FOR MEDICAL TERMINOLOGY Unavailable +[phone] Lizet Mann PA-C Unavailable [phone] Ravi Brownlee MD Unavailable Manuel Ahn OD Unavailable [phone] Thalia Charles [facility] Unavailable +[phone] NicolasGaurav Ray SCREW MACHINE HAND CONTACT WORKER LITHOGRAPHY Unavailable [phone] Debbie Mann MD Unavailable +[phone] Hakeem Chacko MB Unavailable Debbie Mann MD Unavailable [phone] Timothy Tejada MD Unavailable [phone] Timothy Tejada MD Unavailable [phone] Elsie Roberts SCREW MACHINE HAND CONTACT WORKER LITHOGRAPHY Unavailable + Cristy Morton MD Unavailable [phone] Georgie Anguiano PA-C Unavailable +[phone] Encounter Details Date Type Department Care Team (Late st Contact Info) Description 07/11/2024 [facility] [address] [address] [facility] Social History Tobacco Use Types Packs/Day Years [...] re latives? 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 [address] 4th [place] [address] Richard Kam MD [address] [place] [address] 12/19/2024 8:20 AM CDT Therapy Visit [place] [address] [place] [address] Shanta Cooper, PT 12/24/2024 5:00 PM CDT Therapy Visit [address] [place] [phone] Pattie Casillas, PT 12/25/2024 10:20 AM CDT Therapy Visit [place] [address] [place] [address] Shanta Cooper, PT 01/03/2025 1:00 PM CDT Office Visit [facility] [address] [place] [phone] Estella Hassan, [facility] [address] [place] [address] 01/03/2025 1:30 PM CDT Office Visit [facility] [address] [place] [phone] [place] [address] [place], [place] [phone] 01/08/2025 1:15 PM CDT Office Visit [facility] 2945 [facility] 200 [place] [address] Hakeem Chacko MBBS [address] [place] [address] Scheduled Procedures Name Priority Associated Diagnoses Date/Ti [...] and will access resources that the [employer] offers. . Sarted new job 4. Continue [...] by household income. 2. I will contact [employer] [facility] to ask about medicare plans and if there are saving programs I qualify for by by calling [phone]. 3. I will see if I am eligible for unemployment after losing my job. I will call [phone] to ask for assistance with unemployment application. 4. I will apply for jobs. I will work with [facility] in finding a job (Empowerment.) 5. I will access [employer] and ask about financial resources (such as [...] I will continue working with therapist at [facility]. 2. I will establish with Psychiatry. Planning to schedule with Ronnie. 3. I will meet with [facility] warp worker Manjula Gresham. 4. I will look in to attending an IOP program. I will discuss with my [facility] therapist and number provided for [facility] Behavioral Access - [phone] to schedule assessment fr IOP program. 5. I will go to [facility] if I have concerning mental health symptoms. 6. I will access [facility] Crisis if needed by calling [phone]. 7. I will consider calling [facility] Adult Mental health intake at [phone]. documented as of this encounter Visit Diagnoses [...] documented as of this encounter Care Teams Sanitation Truck Cleaner Relationship Specialty [place] [address] [place] [address] PCP - General Family Practice 07/11/14 [place] [address] [place] [address] Assigned PCP 12/16/11 Christy Campuzano PA-C [address] [place] [address] 654382 Referring Physician Family Medicine 04/22/20 Hans Cannon MD [address] [place] [address] 944342 Resident Pulmonary Disease 04/22/20 Estella Hassan, [facility] [address] [place], [place] 377536 Pharmacist Pharmacist 05/26/20 Elaina Moreno MD [address] [place] [address] 141995 Cardiovascular & Thoracic Surgery 08/06/20 John Webb MD [address] [address] Cardiovascular Disease 08/25/21 John Webb MD [address] [place] [address] Cardiovascular Disease 08/25/21 Estella Hassan, [facility] [address] [place] [address] Assigned MTM Pharmacist 12/09/21 Lindsay Carey OD [address] [facility] [place] [address] Ophthalmology 01/29/22 Richard Kam MD 500 [place], [place] 532675 Assigned Musculoskeletal Provider 08/14/22 [place] [address] 346097 Assigned Neuroscience Provider 01/01/23 12/03/24 Rosemarie Mcdowell, RN Contact Acid Plant Operator Diabetes Education 03/17/23 Mitra Kendall, ADJUNCT FACULTY FOR MEDICAL TERMINOLOGY Lead Property Insurance Inspector Primary Care - CC 12/12/23 Lizet Mann PA-C [address] [place] [address] Assigned Cancer Care Provider 01/04/24 Rvai Brownlee MD 420 [facility] 276 [place], [place] 148435 Assigned Pulmonology Provider 01/04/24 Manuel Ahn OD 6341 [place] [address] Electronic Game Developer 01/05/24 Thalia Charles [facility] [address] [place], [place] [phone] Pharmacist Pharmacy 01/26/24 Gaurav Valenzuela APRN CONTACT WORKER LITHOGRAPHY 606 [facility] 106 [place], [place] 186034 Assigned Sleep Provider 02/04/24 Debbie Mann MD 1600 [facility] 200 [place], [place] [phone] Cardiovascular Disease 02/24/24 Hakeem Chacko MBBS 2945 [place] [address] Assigned Rheumatology Provider 04/05/24 Debbie Mann MD 1600 [facility] 200 [place], [place] [phone] Assigned Heart and Vascular Provider 05/06/24 Timothy Tejada MD 6341 [place] [phone] Ophthalmology 05/29/24 Timothy Tejada MD [address] [place] [address] Assigned Surgical Provider 06/03/24 Elsie Roberts APRN CONTACT WORKER LITHOGRAPHY 1600 [facility] [place] [address] [place] [address] Nurse Practitioner Pain Medicine 10/16/24 Cristy Morton MD [facility] [place] [address] Assigned Pediatric Specialist Provider 11/03/24 Georgie Anguiano PA-C [address] [place] [place] [address] Assigned Neuroscience Provider 12/04/24 documented as of this encounter
--- OUTSIDE RECORDS SUMMARY | 2024-12-06 00:31 | XMS_ITS | Encounter Summary ---
Author Organization [facility] Address [address] [place] [address] Care Team Providers Care House Shorer Name Role Phone Va Glez MD Primary Care Provider Va Glez MD Unavailable Christy CampuzanoC Unavailable Hans Cannon MD Unavailable Burt Jovel MD Unavailable Estella Hassan [facility] Unavailable Josh Cordero MD, Madhuri Unavailable [phone] John Webb MD Unavailable [phone] John Webb MD Unavailable Estella Hassan [facility] Unavailable Lindsay Carey OD Unavailable [phone] Richard Kam MD Unavailable Gaby Vila DO Unavailable [phone] Rosemarie Mcdowell RN Unavailable [phone] Ravi Brownlee MD Unavailable [phone] Mitra Kendall SAWMILL MOULDER OPERATOR Unavailable [phone] Lizet MannC Unavailable Ravi Brownlee MD Unavailable Nav Hughes MD Unavailable [phone] Manuel Ahn OD Unavailable [phone] Kye Arabella PAM Unavailable [phone] [facility] Unavailable Gaurav Valenzuela ASSISTANT RESEARCH SCIENTIST LOCK TENDER Unavailable [phone] Manuel Ahn OD Unavailable Debbie Mann MD Unavailable Hakeem Chacko Unavailable Debbie Mann MD Unavailable [phone] Timothy Tejada MD Unavailable [phone] Timothy Tejada MD Unavailable [phone] Elsie Roberts ASSISTANT RESEARCH SCIENTIST LOCK TENDER Unavailable + Cristy Morton MD Unavailable [phone] Georgie Anguiano PA-C Unavailable [phone] Encounter Details Date Type Department Care Team (Late st Contact Info) Description 10/28/[address] [facility] [address] [place] [address] Bc Cochran Social History Tobacco Use [...] 10/20/2022 How often do you attend [facility] or [facility] services? 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 Gender Identity Not on file Sexual Orientation Not on file Occupation Industry Job Start Date Job End Date Not on file Not on file Not on file Not on file documented as of this encounter Plan of Treatment Upcoming Encounters Date Type Department Care Team (Late st Contact Info) Description 12/11/2024 2:10 PM CDT Therapy Visit [facility] [address] [phone] Shanta Cooper, MOIZ 12/14/2024 11:20 AM CDT Office Visit [facility] [id number] [place] [address] [place] [phone] Lizet Mann PA-C [address] [place], [place] [address] [place] [address] 12/17/2024 2:10 PM CDT Office Visit [facility] [place] 9[address] [facility] 4th [place] [phone] Richard Kam MD [address] [place] [address] 12/19/2024 8:20 AM CDT Therapy Visit [place] [address] [place] [address] Shanta Cooper, PT 12/24/2024 5:00 PM CDT Therapy Visit [place] [address] [place] [phone] Pattie Casillas, PT 12/25/2024 10:20 AM CDT Therapy Visit [place] [address] [place] [phone] Shanta Cooper, PT 01/03/2025 1:00 PM CDT Office Visit [address] [phone] [facility] [address] [place] [address] 01/03/2025 1:30 PM CDT Office Visit [address] [phone] [place] [address] [place] [address] 01/08/2025 1:15 PM CDT Office Visit [address] [address] Hakeem Chacko MBBS [address] [place] [address] Scheduled Procedures Name Priority Associated Diagnoses Date/Ti [...] for health insurance by looking in to [employer] and talking with a FRW. Completed 3. I will look for a new job and will access resources that the [employer] offers. . Sarted new job 4. [...] Out COVID-19 03/01/2024 03/01/2024 03/01/2024 1:11 PM WEIGHTS AND MEASURES SEALER Rule Out COVID-19 07/18/2024 07/18/2024 07/19/2024 5:52 PM CDT Rule Out COVID-19 10/17/2024 10/17/2024 10/17/2024 11:23 PM CDT Rule Out C-difficile 11/04/2024 11/04/2024 025 1:55 AM CDT Assessment Noted Time PHQ-9 Depression Total Score: 4 10/13/19 24 3:39 PM CDT documented as of this encounter Care Teams House Shorer Relationship Specialty [place] [address] [place] [address] PCP - General Family Practice 07/11/14 [place] [address] [place] [address] Assigned PCP 12/16/11 Christy Campuzano PA-C [address] [place] [address] 069542 Referring Physician Family Medicine 04/22/20 Hans Cannon MD [address] [place] [address] 034172 Resident Pulmonary Disease 04/22/20 Burt Jovel MD [address] [place] [address] Internal Medicine 05/08/20 12/13/23 Estella Hassan, [facility] [address] [place] [address] Pharmacist Pharmacist 05/26/20 Elaina Moreno MD [address] [place] [address] Cardiovascular & Thoracic Surgery 08/06/20 John Webb MD [address] [place] 493385 Cardiovascular Disease 08/25/21 John Webb MD [address] [place] 6[address]65 Cardiovascular Disease 08/25/21 Estella Hassan, [facility] [address] [place] [address] Assigned MTM Pharmacist 12/09/21 Lindsay Carey OD [address] [facility] [place] [address] Ophthalmology 01/29/22 Richard Kam MD [address] [place] [address] 586455 Assigned Musculoskeletal Provider 08/14/22 [place] [address] [place] [facility] [place], [place] 763007 Assigned Neuroscience Provider 01/01/23 12/03/24 Rosemarie Mcdowell, RN [employer] Weapons Sergeant Diabetes Education 03/17/23 Ravi Brownlee MD [address] [place] [address] Assigned Heart and Vascular Provider 09/04/23 01/03/24 Mitra Kendall, [facility] Lead Sql Tech Primary Care - CC 12/12/23 Lizet Mann PA-C [address] [place] [address] Assigned Cancer Care Provider 01/04/24 Ravi Brownlee MD [address] [place] [address] Assigned Pulmonology Provider 01/04/24 Nav Hughes MD [address] [address] Assigned Heart and Vascular Provider 01/04/24 05/05/24 Manuel Ahn OD 6341 [place] [address] Photographic Equipment Assembler 01/05/24 Arabella Fishman MA Financial Resource Worker 01/06/24 03/19/[address] [facility] [address] [place] [address] Pharmacist Pharmacy 01/26/24 Gaurav Valenzuela APRN LOCK TENDER [facility] 106 [place] [address] Assigned Sleep Provider 02/04/24 Manuel Ahn OD 6341 [place] [address] Assigned Surgical Provider 02/04/24 06/02/24 Debbie Mann MD 1600 [facility] 200 [place] [address] Cardiovascular Disease 02/24/24 Hakeem Chacko MBBS 2945 [place] [address] Assigned Rheumatology Provider 04/05/24 Debbie Mann MD 1600 [facility] 200 [place] [address] Assigned Heart and Vascular Provider 05/06/24 Timothy Tejada MD 6341 [place] [phone] Ophthalmology 05/29/24 Timothy Tejada MD [address]341 [place] [address] Assigned Surgical Provider 06/03/24 Elsie Roberts APRN LOCK TENDER 1600 [facility] 101 [place] [address] Nurse Practitioner Pain Medicine 10/16/24 Cristy Morton MD [address] [place] [address] [address] Assigned Pediatric Specialist Provider 11/03/24 Georgie Anguiano PA-C [address] [address] Assigned Neuroscience Provider 12/04/24 documented as of this encounter
--- OUTSIDE RECORDS SUMMARY | 2024-12-06 00:31 | XMS_ITS | Encounter Summary ---
Author Organization [facility] Address [address] [place] [address] Care Team Providers Care Cake Press Operator Name Role Phone Va Glez MD Primary Care Provider [phone] Va Glez MD Unavailable Kerry Bernal RN Unavailable Ravi Barillas DPM Unavailable [phone] Christy Campuzano PA-C Unavailable [phone] Hans Cannon MD Unavailable Mitra Kendall BERRY PICKER Unavailable Burt Jovel MD Unavailable Estella Hassan [facility] Unavailable [phone] Reji Chavez MD Unavailable [phone] Josh Cordero MD, Madhuri Unavailable [phone] Josh Cordero MD, Madhuri Unavailable [phone] Kelsi Hassan MD Unavailable [phone] John Webb MD Unavailable John Webb MD Unavailable Estella Hassan [facility] Unavailable Nav Hughes MD Unavailable [phone] Cassandra Mendoza MD Unavailable Estella Hassan RPH Unavailable Mitra Kendall BERRY PICKER Unavailable Aurelio Lindsay Kenzie OD Unavailable Ravi Brownlee MD Unavailable Kye Arabella MA Unavailable [phone] Richard Kam MD Unavailable Marisol Patel RPH Unavailable Gaby Vila DO Unavailable Rosemarie Mcdowell RN Unavailable Ravi Brownlee MD Unavailable Mitra Kendall BERRY PICKER Unavailable Lizet MannC Unavailable Ravi Brownlee MD Unavailable Nav Hughes MD Unavailable [phone] Manuel Ahn OD Unavailable Kye Arabella MA Unavailable [phone] Thalia Charles RP Unavailable Gaurav Valenzuela APRN MEDIA MANAGER Unavailable Manuel Ahn OD Unavailable Debbie Mann MD Unavailable Hakeem Chacko Unavailable Debbie Mann MD Unavailable Timothy Tejada MD Unavailable Timothy Tejada MD Unavailable Elsie Roberts APRN MEDIA MANAGER Unavailable + Cristy [place] MD Unavailable [phone] Georgie Anguiano PA-C Unavailable Encounter Details Date Type Department Care Team (Late st Contact Info) Description 08/26/2021 [facility] Medical Advice [facility] [address] [place] [address] [facility] Social History Tobacco Use Types Packs/Day [...] points; Administer PHQ-9 if positive 1 08/04/2021 [facility] [facility] - Occupational Stress [...] on file 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 [address] [place] [phone] Lizet Mann PA-C [id number] [place], [place] [address] [address] 12/17/2024 2:10 PM CDT Office Visit [facility]opedic [facility] 909 [facility] 4th [place] [phone] Richard Kam MD [address] [place] [address] 12/19/2024 8:20 AM CDT Therapy Visit [address] [address] Shanta Cooper, PT 12/24/2024 5:00 PM CDT Therapy Visit [address] [phone] Pattie Casillas, PT 12/25/2024 10:20 AM CDT Therapy Visit [address] [address] Shanta Cooper, PT 01/03/2025 1:00 PM CDT Office Visit [address] [phone] Estella Hassan, [facility] [address] [place] [address] 01/03/2025 1:30 PM CDT Office Visit [address] [phone] [place] [address] [place] [address] 01/08/2025 1:15 PM CDT Office Visit [address] 200 [place] [phone] Hakeem Chacko MBBS [address] [place] [address] Scheduled Procedures Name Priority Associated Diagnoses Date/Ti me INJECTION, EPIDURAL, TRANSFO RAMINAL APPROACH Cervical radiculitis RELEASE, CARPAL TUNNEL, ENDOSCOPIC Right carpal tunnel syndrome documented as of this encounter Visit Diagnoses Not on filedocumented in this encounter Additional Health Concerns Infection Onset Date Last Indicated Resolved Time Rule Out COVID-19 01/22/2022 01/22/2022 01/24/2022 1:05 PM BARGE MASTER Rule Out COVID-19 01/25/2022 01/25/2022 01/25/2022 5:21 AM BARGE MASTER Influenza 01/25/2022 01/25/2022 02/01/2022 11:4 1 PM BARGE MASTER Rule Out COVID-19 07/29/2022 07/29/2022 07/31/2022 11:17 AM CDT Rule Out COVID-19 03/23/2023 03/23/2023 03/23/2023 6:30 PM BARGE MASTER COVID-19 03/23/2023 03/23/2023 04/13/2023 11:4 0 PM BARGE MASTER Rule Out COVID-19 06/05/2023 06/05/2023 06/05/2023 5:53 PM CDT Rule Out COVID-19 11/06/2023 11/06/2023 11/06/2023 11:05 PM CDT Rule Out COVID-19 11/20/2023 11/20/2023 11/20/2023 6:43 PM CDT Rule Out COVID-19 12/27/2023 12/27/2023 12/29/2023 1:37 PM CDT Rule Out COVID-19 03/01/2024 03/01/2024 03/01/2024 1:11 PM BARGE MASTER Rule Out COVID-19 07/18/2024 07/18/2024 07/19/2024 5:52 PM CDT Rule Out COVID-19 10/17/2024 10/17/2024 10/17/2024 11:23 PM CDT Rule Out C-difficile 11/04/2024 11/04/2024 025 1:55 AM CDT Assessment Noted Time PHQ-9 Depression Total Score: 6 08/05/19 3:46 PM CDT documented as of this encounter Care Teams Cake Press Operator Relationship Specialty [place] [address] [place] [address] PCP - General Family Practice 07/11/14 [place] [address] [place] [address] Assigned PCP 12/16/11 Kerry Bernal, INOCENCIO Personal Advocate & Liaison (PAL) 01/08/19 07/10/23 Ravi Barillas DPM [address] [facility] [address] [place], [place] [address] Assigned Musculoskeletal Provider 03/23/20 10/30/21 Christy Campuzano PA-C [address] [place] [address] 031012 Referring Physician Family Medicine 04/22/20 Hans Cannon MD [address] [place] [address] 163702 Resident Pulmonary Disease 04/22/20 Mitra Kendall, [facility] Lead Repatcher Primary Care - CC 01/08/1901/12 Burt Jovel MD Internal Medicine 05/08/20 12/13/23 Estella Hassan, [facility] [address] [place], [place] [address] Pharmacist Pharmacist 05/26/20 Reji Chavez MD [address] [phone] Assigned Heart and Vascular Provider 05/18/20 10/30/21 Elaina Moreno MD [address] [place] [address] Assigned Surgical Provider 05/18/20 11/19/22 Elaina Moreno MD [address] [place] [address] Cardiovascular & Thoracic Surgery 08/06/20 Kelsi Hassan MD [address] [place] [address] Assigned Pulmonology Provider 06/28/21 02/05/22 John Webb MD [address] [address] Cardiovascular Disease 08/25/21 John Webb MD [address] [address] Cardiovascular Disease 08/25/21 Estella Hassan, [facility] 30[address] [place] [address] Assigned MTM Pharmacist 09/05/21 Nav Hughes MD [address] [place] [address] Assigned Heart and Vascular Provider 10/31/21 09/03/23 Cassandra Mendoza MD ORTHOPAEDIC SURGERY [address] [address] Assigned Musculoskeletal Provider 10/31/21 08/13/22 Estella Hassan, [facility] 30[address] [place] [address] Assigned MTM Pharmacist 12/09/21 Mitra Kendall, [facility] Lead Repatcher Primary Care - CC 01/26/2210/28 Lindsay Carey OD 3305 [facility] [place] [address] Ophthalmology 01/29/22 Ravi Brownlee MD 420 [facility] 276 [place], [place] [address] Assigned Pulmonology Provider 02/06/22 09/03/23 Arabella Fishman MA Financial Resource Worker 02/22/22 02/23/22 Richard Kam MD 500 [place] [address] Assigned Musculoskeletal Provider 08/14/22 Marisol Patel, [facility] [address] [id number] Pharmacist Pharmacist 11/22/22 01/09/23 [place] [address] [address] Assigned Neuroscience Provider 01/01/23 12/03/24 Rosemarie Mcdowell, RN Pack Operator Diabetes Education 03/17/23 Ravi Brownlee MD [address] [address] Assigned Heart and Vascular Provider 09/04/23 01/03/24 Mitra Kendall, [facility] Lead Repatcher Primary Care - CC 12/12/23 Lizet Mann PA-C [address] [place] [address] Assigned Cancer Care Provider 01/04/24 Ravi Brownlee MD [address] [place] [address] Assigned Pulmonology Provider 01/04/24 Nav Hughes MD 6405 [facility] [place] [address] Assigned Heart and Vascular Provider 01/04/24 05/05/24 Manuel Ahn OD 6341 [facility] [place] [address] Assembler Convertible Top 01/05/24 Arabella Fishman MA Financial Resource Worker 01/06/24 03/19/24 Thalia Charles [facility] 116[address] [place], [place] [phone] Pharmacist Pharmacy 01/26/24 Gaurav Valenzuela APRN MEDIA MANAGER 606 [facility] 106 [place] [address] Assigned Sleep Provider 02/04/24 Manuel Ahn OD 6341 [place], [place] 714[address] Assigned Surgical Provider 02/04/24 06/02/24 Debbie Mann MD 1600 [facility] [place] 200 [place], [place] [phone] Cardiovascular Disease 02/24/24 Hakeem Chacko MBBS 2945 [place], [place] [address] Assigned Rheumatology Provider 04/05/24 Debbie Mann MD 1600 [facility] [place] 200 [place], [place] [phone] Assigned Heart and Vascular Provider 05/06/24 Timothy Tejada MD 6341 [place] [phone] Ophthalmology 05/29/24 Timothy Tejada MD 6341 [place] [address] Assigned Surgical Provider 06/03/24 Elsie Roberts APRN MEDIA MANAGER [address] [facility] 101 [place], [place] [phone] Nurse Practitioner Pain Medicine 10/16/24 Cristy [place] MD [facility] [place] [place] [address] Assigned Pediatric Specialist Provider 11/03/24 Georgie Anguiano PA-C [address] [address] Assigned Neuroscience Provider 12/04/24 documented as of this encounter
--- OUTSIDE RECORDS SUMMARY | 2024-12-06 00:31 | XMS_ITS | Encounter Summary ---
Author Organization [facility] Address [address] [place] [address] Care Team Providers Care Claims Adjuster Name Role Phone Va Glez MD Primary Care Provider [phone] Va Glez MD Unavailable Christy CampuzanoC Unavailable [phone] Hans [place] MD Unavailable Estella Hassan [facility] Unavailable Josh Cordero MD, Madhuri Unavailable [phone] John Webb MD Unavailable John Webb MD Unavailable Estella Hassan [facility] Unavailable Lindsay Carey OD Unavailable Richard Kam MD Unavailable Gaby Vila DO Unavailable [phone] Rosemarie Mcdowell RN Unavailable Mitra Kendall ENVIRONMENTAL COMPLIANCE TECHNICIAN Unavailable [phone] Lizet Mann PA-C Unavailable [phone] Ravi Brownlee MD Unavailable Manuel Ahn OD Unavailable Thalia Charles [facility] Unavailable [phone] Gaurav Valenzuela Ray [employer] ROBOTIC WELD TECHNICIAN Unavailable [phone] Debbie Mann MD Unavailable [phone] Hakeem Chacko MB Unavailable Debbie Mann MD Unavailable [phone] Timothy Tejada MD Unavailable [phone] Timothy Tejada MD Unavailable [phone] Elsie Roberts S[employer]IN [employer] ROBOTIC WELD TECHNICIAN Unavailable + Cristy [place] MD Unavailable [phone] Georgie Anguiano PA-C Unavailable [phone] Reason for Visit * Reason Comments Med Change Request Encounter Details Date Type Department Care Team (Late st Contact Info) Description 07/05/2024 [facility] [address] [place] [address] [place] [address] [place] [address] Med Change Request Social History Tobacco Use [...] re latives? 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 [address] [place] [address] Lizet Mann PA-C [id number] [place], [place] [address] [place] [address] 12/17/2024 2:10 PM CDT Office Visit [facility] Orthopedic [address]th [place] [phone] Richard Kam MD [address] [place] [address] 12/19/2024 8:20 AM CDT Therapy Visit [address] [place] [phone] Shanta Cooper, PT 12/24/2024 5:00 PM CDT Therapy Visit [address] [place] [phone] Pattie Casillas, PT 12/25/2024 10:20 AM CDT [facility] [address] [place] [address] Shanta Cooper, MOIZ 01/03/2025 1:00 PM CDT Office Visit [facility] [address] [place] [phone] Estella Hassan, [facility] [address] [place] [address] 01/03/2025 1:30 PM CDT Office Visit [facility] [address] [place] [address] [place] [address] [place], [place] [phone] 01/08/2025 1:15 PM CDT Office Visit [facility] 2945 [facility] 200 [place] [address] Hakeem Chacko MBBS 2945 [place], [place] [phone] Scheduled Procedures Name Priority Associated Diagnoses Date/Ti me INJECTION, EPIDURAL, TRANSFO RAMINAL APPROACH Cervical radiculitis RELEASE, CARPAL TUNNEL, ENDOSCOPIC Right carpal tunnel syndrome documented as of this encounter Goals Goal Patient Goal Type Associated Problems Recent Progress Patient-Stated? Author Health Maintenance Care Plan HP GENERAL PROBLEM 100%(10/29/19 10:17 AM CDT) No Mitra Kendall, ENVIRONMENTAL COMPLIANCE TECHNICIAN Note: Update on 05/25/22 Barriers: Currently without [...] for health insurance by looking in to [employer] and talking with a FRW. Completed 3. I will look for a new job and will access resources that the [employer] offers. . Sarted new job 4. Continue [...] programs I qualify for by by calling [phone]. 3. I will see if I am eligible for unemployment after losing my job. I will call [phone] to ask for assistance with unemployment application. 4. I will apply for jobs. I will work with [employer] in finding a job (Empowerment.) 5. I will access [employer] and ask about financial resources (such as [...] Ronnie. 3. I will meet with community wafer production lead worker Manjula Gresham. 4. I will look in to attending an IOP program. I will discuss with my [place] mental Health therapist and number provided for [facility] Behavioral Access - [phone] to schedule assessment fr IOP program. 5. I will go to [facility] if I have concerning mental health symptoms. 6. I will access [facility] Crisis if needed by calling [phone]. 7. I will consider calling [facility] Adult Mental health intake at [phone]. documented as of this encounter Visit Diagnoses [...] documented as of this encounter Care Teams Claims Adjuster Relationship Specialty [place] [address] [place] [address] PCP - General Family Practice 07/11/14 [place] [address] [place] [address] Assigned PCP 12/16/11 Christy Campuzano PA-C [address] [place] [address] [id number] Referring Physician Family Medicine 04/22/20 Hans Cannon MD [address] [place] [address] 895872 Resident Pulmonary Disease 04/22/20 Estella Hassan, [facility] [address] [place] [address] Pharmacist Pharmacist 05/26/20 Elaina Moreno MD 909 [place], [place] 627[address] Cardiovascular & Thoracic Surgery 08/06/20 John Webb MD [address] 495515 Cardiovascular Disease 08/25/21 John Webb MD [address] 750645 Cardiovascular Disease 08/25/21 Estella Hassan, [facility] [address] [place] [address] Assigned MTM Pharmacist 12/09/21 Lindsay Carey OD [address] [facility] [place] [address] Ophthalmology 01/29/22 Richard Kam MD [address] [place] [address] 796615 Assigned Musculoskeletal Provider 08/14/22 [place] [address] [address] Assigned Neuroscience Provider 01/01/23 12/03/24 Rosemarie Mcdowell, RN Structural Steel Erector Diabetes Education 03/17/23 Mitra Kendall, ENVIRONMENTAL COMPLIANCE TECHNICIAN Lead Parts Consultant Primary Care - CC 12/12/23 Lizet Mann PA-C [address] [facility] [place] [address] Assigned Cancer Care Provider 01/04/24 Ravi Brownlee MD [address] [facility] 276 [place], [place] 49[address] Assigned Pulmonology Provider 01/04/24 Manuel Ahn OD 6341 [place], [place] 734782 Sugar Coating Hand 01/05/24 Thalia Charles [facility] [address] [place], [place] [phone] Pharmacist Pharmacy 01/26/24 Gaurav Valenzuela APRN ROBOTIC WELD TECHNICIAN [address] [place], [place] 5[address] Assigned Sleep Provider 02/04/24 Debbie Mann MD 1600 [facility] [address] [place] [address] Cardiovascular Disease 02/24/24 Hakeem Chacko MBBS 2945 [place] [address] Assigned Rheumatology Provider 04/05/24 Debbie Mann MD 1600 [facility] [address] [place] [address] Assigned Heart and Vascular Provider 05/06/24 Timothy Tejada MD 6341 [facility] [place] [address] Ophthalmology 05/29/24 Timothy Tejada MD 6341 [facility] [place] [place] [address] Assigned Surgical Provider 06/03/24 Elsie Roberts APRN ROBOTIC WELD TECHNICIAN 1600 [facility] 101 [place] [address] Nurse Practitioner Pain Medicine 10/16/24 Cristy [place] MD 1440 [facility] [address] [place] [address] Assigned Pediatric Specialist Provider 11/03/24 Georgie Anguiano PA-C [address] [address] Assigned Neuroscience Provider 12/04/24 documented as of this encounter
--- OUTSIDE RECORDS SUMMARY | 2024-12-06 00:31 | XMS_ITS | Encounter Summary ---
Author Organization [facility] Address [address] [place] [address] Care Team Providers Care Field Crop Technical Officer Name Role Phone Va Glez MD Primary Care Provider [phone] Va Glez MD Unavailable Kerry Bernal RN Unavailable Ravi Barillas DPM Unavailable [phone] Christy Campuzano PA-C Unavailable Hans Cannon MD Unavailable [phone] Mitra Kendall SAW SUPERINTENDENT Unavailable Burt Jovel MD Unavailable [phone] Estella Hassan [facility] Unavailable [phone] Reji Chavez MD Unavailable [phone] Josh Cordero MD, Madhuri Unavailable [phone] Josh Cordero MD, Madhuri Unavailable [phone] Kelsi Hassan MD Unavailable [phone] John Webb MD Unavailable John Webb MD Unavailable [phone] Estella Hassan [facility] Unavailable [phone] Nav Hughes MD Unavailable [phone] Cassandra Mendoza MD Unavailable Estella Hassan RPH Unavailable Mitra Kendall SAW SUPERINTENDENT Unavailable Aurelio Lindsay Kenzie OD Unavailable Ravi Brownlee MD Unavailable Kye Arabella MA Unavailable [phone] Richard Kam MD Unavailable Marisol Patel RPH Unavailable Gaby Vila DO Unavailable Rosemarie Mcdowell RN Unavailable Ravi Brownlee MD Unavailable Mitra Kendall SAW SUPERINTENDENT Unavailable Lizet MannC Unavailable Ravi Brownlee MD Unavailable Nav Hughes MD Unavailable [phone] Manuel Ahn OD Unavailable Kye Arabella MA Unavailable [phone] Thalia Charles RP Unavailable Gaurav Valenzuela APRN CUPOLA LINER Unavailable Manuel Ahn OD Unavailable Debbie Mann MD Unavailable Hakeem Chacko Unavailable Debbie Mann MD Unavailable Timothy Tejada MD Unavailable Timothy Tejada MD Unavailable Elsie Roberts APRN CUPOLA LINER Unavailable + Cristy Morton MD Unavailable [phone] Georgie Anguiano PA-C Unavailable Encounter Details Date Type Department Care Team (Late st Contact Info) Description 08/14/2020 MyC Medical Advice [address] [address] Estella Hassan, [facility] [address] [place] [address] Social History Tobacco Use Types Packs/Day Years [...] on file Legal Sex Male 3:29 AM 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 Gender Identity Not on file Sexual [...] Therapy Visit [facility] [address] [place] [phone] Shanta Cooper, MIOZ 12/14/2024 11:20 AM CDT Office Visit [facility] [address] [place] [address] Lizet Mann PA-C [address] [place] [address] 12/17/2024 2:10 PM CDT Office Visit [facility] Orthopedic [facility] [address] [facility] 4th [place] [address] Richard Kam MD [address] [place] [address] 12/19/2024 8:20 AM CDT Therapy Visit [address] [place] [phone] Shanta Cooper, PT 12/24/2024 5:00 PM CDT Therapy Visit [address] [address] Pattie Casillas, PT 12/25/2024 10:20 AM CDT Therapy Visit [address] [address] Shanta Cooper, PT 01/03/2025 1:00 PM CDT Office Visit [address] [phone] Estella Hassan, [facility] [address] [place] [address] 01/03/2025 1:30 PM CDT Office Visit [address] [phone] Va Glez MD [address] [place] [id number] 01/08/2025 1:15 PM CDT Office Visit [employer] [address] [facility] [address] [place] [phone] Hakeem Chacko MBBS [address] [place] [address] Scheduled Procedures Name Priority Associated Diagnoses Date/Ti me INJECTION, EPIDURAL, TRANSFO RAMINAL APPROACH Cervical radiculitis RELEASE, CARPAL TUNNEL, ENDOSCOPIC Right carpal tunnel syndrome documented as of this encounter Visit Diagnoses Not on filedocumented in this encounter Additional Health Concerns Infection Onset Date Last Indicated Resolved Time Rule Out COVID-19 06/22/2021 06/22/2021 06/23/2021 8:58 PM CDT Rule Out COVID-19 01/22/2022 01/22/2022 01/24/2022 1:05 PM 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 Rule Out COVID-19 01/25/2022 01/25/2022 01/25/2022 5:21 AM 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 Influenza 01/25/2022 01/25/2022 02/01/2022 11:4 1 PM 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 Rule Out COVID-19 07/29/2022 07/29/2022 07/31/2022 11:17 AM CDT Rule Out COVID-19 03/23/2023 03/23/2023 03/23/2023 6:30 PM 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 COVID-19 03/23/2023 03/23/2023 04/13/2023 11:4 0 PM 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 Rule Out COVID-19 06/05/2023 06/05/2023 06/05/2023 5:53 PM CDT Rule Out COVID-19 11/06/2023 11/06/2023 11/06/2023 11:05 PM CDT Rule Out COVID-19 11/20/2023 11/20/2023 11/20/2023 6:43 PM CDT Rule Out COVID-19 12/27/2023 12/27/2023 12/29/2023 1:37 PM CDT Rule Out COVID-19 03/01/2024 03/01/2024 03/01/2024 1:11 PM 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 Rule Out COVID-19 07/18/2024 07/18/2024 07/19/2024 5:52 PM CDT Rule Out COVID-19 10/17/2024 10/17/2024 10/17/2024 11:23 PM CDT Rule Out C-difficile 11/04/2024 11/04/2024 025 1:55 AM CDT Assessment Noted Time PHQ-9 Depression Total Score: 7 08/08/19 21 7:03 AM CDT documented as of this encounter Care Teams Field Crop Technical Officer Relationship Specialty [place] [address] [place] [address] PCP - General Family Practice 07/11/14 [place] [address] [place] [address] Assigned PCP 12/16/11 Kerry Benral RN Personal Advocate & Liaison (PAL) 01/08/19 07/10/23 Ravi Barillas DPM [address] [facility] [address] [place] [address] Assigned Musculoskeletal Provider 03/23/20 10/30/21 Christy Campuzano PA-C [address] [place] [address] 289[address] Referring Physician Family Medicine 04/22/20 Hans Cannon MD [address] [place] [address] Resident Pulmonary Disease 04/22/20 Mitra Kendall, SAW SUPERINTENDENT Lead Glue Wheel Operator Primary Care - CC 01/08/1901/12 Burt Jovel MD Internal Medicine 05/08/20 12/13/23 Estella Hassan, [facility] [address] [place] [address] Pharmacist Pharmacist 05/26/20 Reji Chavez MD [address] [facility] [address] [place] [address] Assigned Heart and Vascular Provider 05/18/20 10/30/21 Elaina Moreno MD [address] [place] [address] Assigned Surgical Provider 05/18/20 11/19/22 Elaina Moreno MD [address] [place] [address] Cardiovascular & Thoracic Surgery 08/06/20 Kelsi Hassan MD [address] [place] [address] Assigned Pulmonology Provider 06/28/21 02/05/22 John Webb MD [address] [address] Cardiovascular Disease 08/25/21 John Webb MD [address] 498655 Cardiovascular Disease 08/25/21 Estella Hassan, [facility] [address] [place] [address] Assigned MTM Pharmacist 09/05/21 Nav Hughes MD [address] [place] [address] Assigned Heart and Vascular Provider 10/31/21 09/03/23 Cassandra Mendoza MD ORTHOPAEDIC SURGERY [facility] [address] [address] Assigned Musculoskeletal Provider 10/31/21 08/13/22 Estella Hassan, [facility] [address] [place] [address] Assigned MTM Pharmacist 12/09/21 Mitra Kendall, [facility] Lead Glue Wheel Operator Primary Care - CC 01/26/2210/28 Lindsay Carey OD [address] [facility] [place] [place] [address] Ophthalmology 01/29/22 Ravi Brownlee MD [address] [place] [address] Assigned Pulmonology Provider 02/06/22 09/03/23 Arabella Fishman MA Financial Resource Worker 02/22/22 02/23/22 Richard Kam MD [address] [place] [address] Assigned Musculoskeletal Provider 08/14/22 Marisol Patel, [facility] [address] [facility] [place] [place] [phone] Pharmacist Pharmacist 11/22/22 01/09/23 [place] [address] [place], [address] [address] Assigned Neuroscience Provider 01/01/23 12/03/24 Rosemarie Mcdowell RN Social Media Marketer Diabetes Education 03/17/23 Ravi Brownlee MD [address] [id number] Assigned Heart and Vascular Provider 09/04/23 01/03/24 Mitra Kendall, [facility] Lead Glue Wheel Operator Primary Care - CC 12/12/23 Lizet Mann PA-C [address] [place] [address] [place] [address] Assigned Cancer Care Provider 01/04/24 Ravi Brownlee MD [address] [address] Assigned Pulmonology Provider 01/04/24 Nav Hughes MD [address] [facility] [address] [place] [address] Assigned Heart and Vascular Provider 01/04/24 05/05/24 Manuel Ahn OD 6341 [facility] [place] [address] Auto Specialty Services Manager 01/05/24 Arabella Fishman MA Financial Resource Worker 01/06/24 03/19/24 Melvin Thalia, [facility] [address] [place], [place] [phone] Pharmacist Pharmacy 01/26/24 Gaurav Valenzuela APRN CUPOLA LINER [address] [facility] 106 [place], [place] 639764 Assigned Sleep Provider 02/04/24 Manuel Ahn OD 6341 [place], [place] 625862 Assigned Surgical Provider 02/04/24 06/02/24 Debbie Mann MD [address] [address] Cardiovascular Disease 02/24/24 Hakeem Chacko MBBS 2945 [place], [place] [phone] Assigned Rheumatology Provider 04/05/24 Debbie Mann MD [address] [facility] 200 [place], [place] [phone] Assigned Heart and Vascular Provider 05/06/24 Timothy Tejada MD 6341 [facility] [place] [phone] Ophthalmology 05/29/24 Timothy Tejada MD 6341 [place] [phone] Assigned Surgical Provider 06/03/24 Elsie Roberts APRN CUPOLA LINER 1600 [facility] [place] [address] [address] Nurse Practitioner Pain Medicine 10/16/24 Cristy Morton MD [address] [facility] [place] [address] Assigned Pediatric Specialist Provider 11/03/24 Georgie Anguiano PA-C [address] [address] Assigned Neuroscience Provider 12/04/24 documented as of this encounter
--- OUTSIDE RECORDS SUMMARY | 2024-12-06 00:31 | XMS_ITS | Encounter Summary ---
Author Organization [facility] Address [address] [place] [address] Care Team Providers Care Production Tool Engineer Name Role Phone Va Glez MD Primary Care Provider Va Glez MD Unavailable Christy CampuzanoC Unavailable Hans Cannon MD Unavailable Burt Jovel MD Unavailable [phone] Estella Hassan [facility] Unavailable [phone] Josh Cordero MD, Madhuri Unavailable [phone] John Webb MD Unavailable John Webb MD Unavailable Estella Hassan [facility] Unavailable Lindsay Carey OD Unavailable Richard Kam MD Unavailable Gaby Vila DO Unavailable Rosemarie Mcdowell RN Unavailable Ravi Brownlee MD Unavailable [phone] Mitra Kendall DATA INTEGRITY CONSULTANT Unavailable Lizet MannC Unavailable [phone] Ravi Brownlee MD Unavailable Nav Hughes MD Unavailable [phone] Manuel Ahn OD Unavailable [phone] Kye Arabella PAM Unavailable [phone] Thalia Charles [facility] Unavailable Gaurav Valenzuela ASSURANCE SERVICES MANAGER HEALTH CARE RN HEMODIALYSIS Unavailable [phone] Manuel Ahn OD Unavailable [phone] Debbie Mann MD Unavailable Hakeem Chacko Unavailable Debbie Mann MD Unavailable [phone] Timothy Tejada MD Unavailable [phone] Timothy Tejada MD Unavailable [phone] Elsie Roberts ASSURANCE SERVICES MANAGER HEALTH CARE RN HEMODIALYSIS Unavailable + Cristy Morton MD Unavailable [phone] Georgie Anguiano PA-C Unavailable [phone] Encounter Details Date Type Department Care Team (Late st Contact Info) Description 11/30/2023 MyC Medical Advice [facility] [address] [address] Aditi Morales Social History Tobacco Use [...] week 10/20/2022 How often do you attend [facility] or [facility] services? 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 Gender Identity Not on file Sexual Orientation Not on file Occupation Industry Job Start Date Job End Date Not on file Not on file Not on file Not on file documented as of this encounter Plan of Treatment Upcoming Encounters Date Type Department Care Team (Late st Contact Info) Description 12/11/2024 2:10 PM CDT Therapy Visit [facility] Rehabilitation Services [address] [address] Shanta Cooper, MOIZ 12/14/2024 11:20 AM CDT Office Visit [facility] [address] [place] [address] [place] [phone] Lizet Mann PA-C [id number] [place], [place] [address] [address] 12/17/2024 2:10 PM CDT Office Visit [facility] [place] 9[address] [facility] 4th [place] [address] Richard Kam MD [address] [place] [address] 12/19/2024 8:20 AM CDT Therapy Visit [address] [place] [address] Shanta Cooper, PT 12/24/2024 5:00 PM CDT Therapy Visit [address] [place] [address] Pattie Casillas, PT 12/25/2024 10:20 AM CDT Therapy Visit [place] [address] [place] [phone] Shanta Cooper, PT 01/03/2025 1:00 PM CDT Office Visit [address] [address] [facility] 3033 [place] [address] 01/03/2025 1:30 PM CDT Office Visit [address] [phone] [place] [id number] [place] [address] 01/08/2025 1:15 PM CDT Office [facility] [address] [place] [phone] Hakeem Chacko MBBS [address] [place] [address] Scheduled Procedures Name Priority Associated Diagnoses Date/Ti [...] for health insurance by looking in to [employer] and talking with a FRW. Completed 3. I will look for a new job and will access resources that the [employer] center offers. . Sarted new job 4. [...] Out COVID-19 03/01/2024 03/01/2024 03/01/2024 1:11 PM CAD DESIGN ENGINEER Rule Out COVID-19 07/18/2024 07/18/2024 07/19/2024 5:52 PM CDT Rule Out COVID-19 10/17/2024 10/17/2024 10/17/2024 11:23 PM CDT Rule Out C-difficile 11/04/2024 11/04/2024 025 1:55 AM CDT Assessment Noted Time PHQ-9 Depression Total Score: 4 10/13/19 3:39 PM CDT documented as of this encounter Care Teams Production Tool Engineer Relationship Specialty [place] [address] [place] [address] PCP - General Family Practice 07/11/14 [place] [address] [place] [address] Assigned PCP 12/16/11 Christy Campuzano PA-C [address] [place] [address] 086802 Referring Physician Family Medicine 04/22/20 Hans Cannon MD [address] [place] [address] 322882 Resident Pulmonary Disease 04/22/20 Burt Jovel MD [address] [place] [address] 020462 Internal Medicine 05/08/20 12/13/23 Estella Hassan, [facility] [address] [place] [address] Pharmacist Pharmacist 05/26/20 Elaina Moreno MD 909 [place] [address] Cardiovascular & Thoracic Surgery 08/06/20 John Webb MD [address] [place] [address] Cardiovascular Disease 08/25/21 John Webb MD [address] [place] [address] Cardiovascular Disease 08/25/21 [facility] [address] [place] [address] Assigned MTM Pharmacist 12/09/21 Lindsay Carey OD [address] [place] [address] Ophthalmology 01/29/22 Richard Kam MD [address] [place] [address] 680745 Assigned Musculoskeletal Provider 08/14/22 [place] [address] [address] PE[facility] [place] [address] Assigned Neuroscience Provider 01/01/23 12/03/24 Rosemarie Mcdowell RN Informatics Pharmacist Diabetes Education 03/17/23 Ravi Brownlee MD 420 [facility] 276 [place] [address] Assigned Heart and Vascular Provider 09/04/23 01/03/24 Enoch Mitra Jewel, DATA INTEGRITY CONSULTANT Lead Analytical Strategist Primary Care - CC 12/12/23 Lizet Mann PA-C [address] [place] [address] Assigned Cancer Care Provider 01/04/24 Ravi Brownlee MD [address] [address] Assigned Pulmonology Provider 01/04/24 Nav Hughes MD [address] [address] Assigned Heart and Vascular Provider 01/04/24 05/05/24 Manuel Ahn OD 6341 [place] [address] Makeup Sales Consultant 01/05/24 Arabella Fishman MA Financial Resource Worker 01/06/24 03/19/24 Thalia Charles [place]abel [address] [place], [place] [phone] Pharmacist Pharmacy 01/26/24 Gaurav Valenzuela APRN RN HEMODIALYSIS [address] [place] [address] [place], [place] 289544 Assigned Sleep Provider 02/04/24 Manuel Ahn OD 6341 [place] [address] Assigned Surgical Provider 02/04/24 06/02/24 Debbie Mann MD 1600 [facility] 200 [place] [address] Cardiovascular Disease 02/24/24 Hakeem Chacko MBBS 2945 [place] [address] Assigned Rheumatology Provider 04/05/24 Debbie Mann MD 1600 [facility] 200 [place] [address] Assigned Heart and Vascular Provider 05/06/24 Timothy Tejada MD 6341 [place] [phone] Ophthalmology 05/29/24 Timothy Tejada MD 6341 [place] [address] Assigned Surgical Provider 06/03/24 Elsie Roberts APRN RN HEMODIALYSIS 1600 [facility] 101 [place] [address] Nurse Practitioner Pain Medicine 10/16/24 Cristy Morton MD [address] [place] [address] [place] [address] Assigned Pediatric Specialist Provider 11/03/24 Georgie Anguiano PA-C [address] [address] Assigned Neuroscience Provider 12/04/24 documented as of this encounter
[2024-12-06 00:32] LABS: Troponin, Point-of-Care* 0.01 ng/ml (0.01-0.04)
--- OUTSIDE RECORDS SUMMARY | 2024-12-06 00:32 | XMS_ITS | Encounter Summary ---
Author Organization [place] Address [address] [place] [address] Care Team Providers Care Wind Turbine Mechanic Name Role Phone Va Glez MD Primary Care Provider [phone] Va Glez MD Unavailable Kerry Bernal RN Unavailable Ravi Barillas DPM Unavailable [phone] Christy Campuzano PA-C Unavailable aHns Cannon MD Unavailable Mitra Kendall CRYPTOZOOLOGIST Unavailable [phone] Burt Jovel MD Unavailable Estella Hassan [facility] Unavailable Reji Chavez MD Unavailable Josh Cordero MD, Madhuri Unavailable [phone] Josh Cordero MD, Madhuri Unavailable [phone] Kelsi Hassan MD Unavailable [phone] John Webb MD Unavailable John Webb MD Unavailable Estella Hassan [facility] Unavailable [phone] Nav Hughes MD Unavailable [phone] Cassandra Mendoza MD Unavailable Estella Hassan RPH Unavailable Mitra Kendall CRYPTOZOOLOGIST Unavailable Aurelio Lindsay Kenzie OD Unavailable Ravi Brownlee MD Unavailable Kye Arabella MA Unavailable [phone] Richard Kam MD Unavailable Marisol Patel RPH Unavailable Gaby Vila DO Unavailable Rosemarie Mcdowell RN Unavailable Ravi Brownlee MD Unavailable Mitra Kendall CRYPTOZOOLOGIST Unavailable Lizet MannC Unavailable Ravi Brownlee MD Unavailable Nav Hughes MD Unavailable [phone] Manuel Ahn OD Unavailable Kye Arabella MA Unavailable [phone] Thalia Charles RP Unavailable Gaurav Valenzuela APRN COMMUNICATION CLERK Unavailable Manuel Ahn OD Unavailable Debbie Mann MD Unavailable Hakeem Chacko Unavailable Debbie Mann MD Unavailable Timothy Tejada MD Unavailable Timothy Tejada MD Unavailable Elsie Roberts APRN COMMUNICATION CLERK Unavailable + Cristy Morton MD Unavailable Georgie Anguiano PA-C Unavailable Encounter Details Date Type Department Care Team (Late st Contact Info) Description 06/26/2020 MyC Medical Advice [address] [address] Estella Hassan, [facility] [address] [place] [address] Social History Tobacco Use Types Packs/Day Years [...] and Family Not on file 05/31/2019 Attends Scientologist Services Not on file 05/30 Active Member [...] Answer Date Recorded PHQ-2 Score 0 06/05/2020 [facility] [place] of Occupat ional Health - Occupational Stress [...] on file 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 Gender Identity Not on file Sexual [...] Description 12/11/2024 2:10 PM CDT Therapy Visit [facility] Rehabilitation Services [address] [place] [phone] Shanta Cooper PT 12/14/2024 11:20 AM CDT Office Visit [facility] [address] [facility] [address] [facility] [place] [phone] Lizet Mann PA-C [address] [facility] [place] [address] 12/17/2024 2:10 PM CDT Office Visit [facility] Orthopedic [facility] [address] [facility] 4th [place] [phone] Richard Kam MD [address] [place] [address] 12/19/2024 8:20 AM CDT Therapy Visit [address] [address] Shanta Cooper, PT 12/24/2024 5:00 PM CDT Therapy Visit [address] [address] Pattie Casillas, PT 12/25/2024 10:20 AM CDT Therapy Visit [address] [address] Shanta Cooper, PT 01/03/2025 1:00 PM CDT Office Visit [address] [phone] Estella Hassan, [facility] [address] [place] [address] 01/03/2025 1:30 PM CDT Office Visit [address] [phone] Va Glez MD [address] [place] [id number] 01/08/2025 1:15 PM CDT Office Visit [address] [phone] Hakeem Chacko MBBS [address] [place] [address] Scheduled Procedures Name Priority Associated Diagnoses Date/Ti me INJECTION, EPIDURAL, TRANSFO RAMINAL APPROACH Cervical radiculitis RELEASE, CARPAL TUNNEL, ENDOSCOPIC Right carpal tunnel syndrome documented as of this encounter Visit Diagnoses Not on filedocumented in this encounter Additional Health Concerns Infection Onset Date Last Indicated Resolved Time Rule Out COVID-19 06/22/2021 06/22/2021 06/23/2021 8:58 PM CDT Rule Out COVID-19 01/22/2022 01/22/2022 01/24/2022 1:05 PM AIR CREW MEMBER Rule Out COVID-19 01/25/2022 01/25/2022 01/25/2022 5:21 AM AIR CREW MEMBER Influenza 01/25/2022 01/25/2022 02/01/2022 11:4 1 PM AIR CREW MEMBER Rule Out COVID-19 07/29/2022 07/29/2022 07/31/2022 11:17 AM CDT Rule Out COVID-19 03/23/2023 03/23/2023 03/23/2023 6:30 PM AIR CREW MEMBER COVID-19 03/23/2023 03/23/2023 04/13/2023 11:4 0 PM AIR CREW MEMBER Rule Out COVID-19 06/05/2023 06/05/2023 06/05/2023 5:53 PM CDT Rule Out COVID-19 11/06/2023 11/06/2023 11/06/2023 11:05 PM CDT Rule Out COVID-19 11/20/2023 11/20/2023 11/20/2023 6:43 PM CDT Rule Out COVID-19 12/27/2023 12/27/2023 12/29/2023 1:37 PM CDT Rule Out COVID-19 03/01/2024 03/01/2024 03/01/2024 1:11 PM AIR CREW MEMBER Rule Out COVID-19 07/18/2024 07/18/2024 07/19/2024 5:52 PM CDT Rule Out COVID-19 10/17/2024 10/17/2024 10/17/2024 11:23 PM CDT Rule Out C-difficile 11/04/2024 11/04/2024 025 1:55 AM CDT Assessment Noted Time PHQ-9 Depression Total Score: 2 06/06/19 21 12:47 PM CDT documented as of this encounter Care Teams Wind Turbine Mechanic Relationship Specialty [place] [address] [place] [address] PCP - General Family Practice 07/11/14 [place] [address] [place] [address] Assigned PCP 12/16/11 Kerry Bernal RN Personal Advocate & Liaison (PAL) 01/08/19 07/10/23 Ravi Barillas DPM [id number] [place] [address] 300 [place] [address] Assigned Musculoskeletal Provider 03/23/20 10/30/21 Christy Campuzano PA-C [address] [place] [address] 226752 Referring Physician Family Medicine 04/22/20 Hans Cannon MD [address] [place] [address] Resident Pulmonary Disease 04/22/20 Mitra Kendall, CRYPTOZOOLOGIST Lead Payment Collector Primary Care - CC 01/08/1901/12 Burt Jovel MD Internal Medicine 05/08/20 12/13/23 Estella Hassan, [facility] [address] [place] [address] Pharmacist Pharmacist 05/26/20 Reji Chavez MD 6[address] [facility] [address] [place] [phone] Assigned Heart and Vascular Provider 05/18/20 10/30/21 Elaina Moreno MD [address] [place] [address] Assigned Surgical Provider 05/18/20 11/19/22 Elaina Moreno MD [address] [place] [address] Cardiovascular & Thoracic Surgery 08/06/20 Kelsi Hassan MD [address] [place] [address] Assigned Pulmonology Provider 06/28/21 02/05/22 John Webb MD [address] [address] Cardiovascular Disease 08/25/21 John Webb MD [address] 826835 Cardiovascular Disease 08/25/21 Estella Hassan, [facility] [address] [place] [address] Assigned MTM Pharmacist 09/05/21 Nva Hughes MD [address] [place] [address] Assigned Heart and Vascular Provider 10/31/21 09/03/23 Cassandra Mendoza MD ORTHOPAEDIC SURGERY [address] [address] Assigned Musculoskeletal Provider 10/31/21 08/13/22 Estella Hassan, [facility] [address] [place] [address] Assigned MTM Pharmacist 12/09/21 Mitra Kendall, [facility] Lead Payment Collector Primary Care - CC 01/26/2210/28 Lindsay Carey OD 3305 [facility] [place] [address] Ophthalmology 01/29/22 Ravi Brownlee MD 420 [facility] 276 [place] [address] Assigned Pulmonology Provider 02/06/22 09/03/23 Arabella Fishman MA Financial Resource Worker 02/22/22 02/23/22 Richard Kam MD 500 [place] [address] Assigned Musculoskeletal Provider 08/14/22 Marisol Patel, [facility] [address] [place] [place] [address] Pharmacist Pharmacist 11/22/22 01/09/23 [place] [address] [place], [address] [address] Assigned Neuroscience Provider 01/01/23 12/03/24 Rosemarie Mcdowell, RN Trail Construction Worker Diabetes Education 03/17/23 Ravi Brownlee MD [address] [place] [address] 253625 Assigned Heart and Vascular Provider 09/04/23 01/03/24 Mitra Kendall, CRYPTOZOOLOGIST Lead Payment Collector Primary Care - CC 12/12/23 Lizet Mann PA-C [address] [place], [place] [address] [address] Assigned Cancer Care Provider 01/04/24 Ravi Brownlee MD [address] [place] [address] Assigned Pulmonology Provider 01/04/24 Nav Hughes MD [address] [place] [address] [address] [place] [address] Assigned Heart and Vascular Provider 01/04/24 05/05/24 Manuel Ahn OD 6341 [facility] [place] [address] Mannequin Wig Maker 01/05/24 Arabella Fishman MA Financial Resource Worker 01/06/24 03/19/24 Thalia Charles [facility] [address] [place] [address] Pharmacist Pharmacy 01/26/24 Gaurav Valenzuela APRN COMMUNICATION CLERK [address] [facility] 106 [place], [place] [address] Assigned Sleep Provider 02/04/24 Manuel Ahn OD 6341 [place], [place] 799442 Assigned Surgical Provider 02/04/24 06/02/24 Debbie Mann MD 1600 [facility] 200 [place] [address] Cardiovascular Disease 02/24/24 Hakeem Chacko MBBS 2945 [place] [address] Assigned Rheumatology Provider 04/05/24 Debbie Mann MD 1600 [facility] 200 [place] [address] Assigned Heart and Vascular Provider 05/06/24 Timothy Tejada MD 6341 [place] [phone] Ophthalmology 05/29/24 Timothy Tejada MD 6341 [place] [address] Assigned Surgical Provider 06/03/24 Elsie Roberts APRN COMMUNICATION CLERK 1600 [facility] [place] [address] [place] [place] [address] Nurse Practitioner Pain Medicine 10/16/24 Cristy Morton MD 1440 [facility] [place] [address] Assigned Pediatric Specialist Provider 11/03/24 Georgie Anguiano PA-C [address] [address] Assigned Neuroscience Provider 12/04/24 documented as of this encounter
--- OUTSIDE RECORDS SUMMARY | 2024-12-06 00:32 | XMS_ITS | Encounter Summary ---
Author Organization [place] Address [address] [place] [address] Care Team Providers Care Row Boss Name Role Phone Va Glez MD Primary Care Provider [phone] Va Glez MD Unavailable Kerry Bernal RN Unavailable [phone] Ravi Barillas DPM Unavailable [phone] Christy Campuzano PA-C Unavailable [phone] Hans Cannon MD Unavailable [phone] Mitra Kendall BEAUTY PARLOR CLEANER Unavailable Burt Jovel MD Unavailable Estella Hassan [facility] Unavailable [phone] Reji Chavez MD Unavailable [phone] Josh Cordero MD, Madhuri Unavailable [phone] Josh Cordero MD, Madhuri Unavailable [phone] Kelsi Hassan MD Unavailable [phone] John Webb MD Unavailable [phone] John Webb MD Unavailable Estella Hassan [facility] Unavailable Nav Hughes MD Unavailable [phone] Cassandra Mendoza MD Unavailable Estella Hassan RPH Unavailable Mitra Kendall BEAUTY PARLOR CLEANER Unavailable Aurelio Lindsay Kenzie OD Unavailable Ravi Brownlee MD Unavailable Key Arabella MA Unavailable [phone] Richard Kam MD Unavailable Marisol Patel RPH Unavailable aGby Vila DO Unavailable Rosemarie Mcdowell RN Unavailable Ravi Brownlee MD Unavailable Mitra Kendall BEAUTY PARLOR CLEANER Unavailable Lizet MannC Unavailable Ravi Brownlee MD Unavailable Nav Hughes MD Unavailable [phone] Manuel Ahn OD Unavailable Kye Arabella MA Unavailable [phone] Thalia Charles RP Unavailable Gaurav Valenzuela APRN STRAIGHT KNIFE MACHINE CUTTER Unavailable Manuel Ahn OD Unavailable Debbie Mann MD Unavailable Hakeem Chacko Unavailable Debbie Mann MD Unavailable Timothy Tejada MD Unavailable Timothy Tejada MD Unavailable Elsie Roberts APRN STRAIGHT KNIFE MACHINE CUTTER Unavailable + Cristy Morton MD Unavailable Georgie Anguiano PA-C Unavailable Encounter Details Date Type Department Care Team (Late st Contact Info) Description 10/29/2021 [facility] Medical Advice [facility] [address] 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 Gender Identity Not on file Sexual [...] Description 12/11/2024 2:10 PM CDT Therapy Visit [facility] Rehabilitation Services [address] [place] [phone] Shanta Cooper PT 12/14/2024 11:20 AM CDT Office Visit [facility] [address] [place] [address] Lizet Mann PA-C [address] [place], [place] [address] [place] [address] 12/17/2024 2:10 PM CDT Office Visit [facility] Orthopedic [facility] 9[address] [facility] 4th [place] [phone] Richard Kam MD [address] [place] [address] 12/19/2024 8:20 AM CDT Therapy Visit [address] [address] Shanta Cooper, PT 12/24/2024 5:00 PM CDT Therapy Visit [address] [address] Pattie Casillas, PT 12/25/2024 10:20 AM CDT Therapy Visit [address] [address] Shanta Cooper, PT 01/03/2025 1:00 PM CDT Office Visit [address] [phone] Estella Hassan, [facility] [address] [place] [address] 01/03/2025 1:30 PM CDT Office Visit [address] [phone] [place] [id number] [place] [address] 01/08/2025 1:15 PM CDT Office Visit [address] [address] Hakeem Chacko MBBS [address] [place] [address] (work) Scheduled Procedures Name Priority Associated Diagnoses Date/Ti me INJECTION, EPIDURAL, TRANSFO RAMINAL APPROACH Cervical radiculitis RELEASE, CARPAL TUNNEL, ENDOSCOPIC Right carpal tunnel syndrome documented as of this encounter Visit Diagnoses Not on filedocumented in this encounter Additional Health Concerns Infection Onset Date Last Indicated Resolved Time Rule Out COVID-19 01/22/2022 01/22/2022 01/24/2022 1:05 PM AGENCY OPERATOR Rule Out COVID-19 01/25/2022 01/25/2022 01/25/2022 5:21 AM AGENCY OPERATOR Influenza 01/25/2022 01/25/2022 02/01/2022 11:4 1 PM AGENCY OPERATOR Rule Out COVID-19 07/29/2022 07/29/2022 07/31/2022 11:17 AM CDT Rule Out COVID-19 03/23/2023 03/23/2023 03/23/2023 6:30 PM AGENCY OPERATOR COVID-19 03/23/2023 03/23/2023 04/13/2023 11:4 0 PM AGENCY OPERATOR Rule Out COVID-19 06/05/2023 06/05/2023 06/05/2023 5:53 PM CDT Rule Out COVID-19 11/06/2023 11/06/2023 11/06/2023 11:05 PM CDT Rule Out COVID-19 11/20/2023 11/20/2023 11/20/2023 6:43 PM CDT Rule Out COVID-19 12/27/2023 12/27/2023 12/29/2023 1:37 PM CDT Rule Out COVID-19 03/01/2024 03/01/2024 03/01/2024 1:11 PM AGENCY OPERATOR Rule Out COVID-19 07/18/2024 07/18/2024 07/19/2024 5:52 PM CDT Rule Out COVID-19 10/17/2024 10/17/2024 10/17/2024 11:23 PM CDT Rule Out C-difficile 11/04/2024 11/04/2024 025 1:55 AM CDT Assessment Noted Time PHQ-9 Depression Total Score: 6 05/24/20 22 3:46 PM CDT documented as of this encounter Care Teams Row Boss Relationship Specialty [place] [address] [place] [address] PCP - General Family Practice 07/11/14 [place] [address] [place] [address] Assigned PCP 12/16/11 Kerry Bernal, INOCENCIO Personal Advocate & Liaison (PAL) 01/08/19 07/10/23 Ravi Barillas DPM [address] [facility] [address] [place], [place] [address] Assigned Musculoskeletal Provider 03/23/20 10/30/21 Christy Campuzano PA-C [address] [place] [address] 932622 Referring Physician Family Medicine 04/22/20 Hans Cannon MD [address] [place] [address] Resident Pulmonary Disease 04/22/20 Mitra Kendall, [facility] Lead Mixing Tank Operator Primary Care - CC 01/08/1901/12 Burt Jovel MD Internal Medicine 05/08/20 12/13/23 Estella Hassan, [facility] [address] [place], [place] [address] Pharmacist Pharmacist 05/26/20 Reji Chavez MD [address] [place] [phone] Assigned Heart and Vascular Provider 05/18/20 10/30/21 Elaina Moreno MD 909 [place] [address] Assigned Surgical Provider 05/18/20 11/19/22 Elaina Moreno MD [address] [place] [address] Cardiovascular & Thoracic Surgery 08/06/20 Kelsi Hassan MD [address] [place] [address] Assigned Pulmonology Provider 06/28/21 02/05/22 John Webb MD [address] [address] Cardiovascular Disease 08/25/21 John Webb MD [address] [address] Cardiovascular Disease 08/25/21 Estella Hassan, [facility] [address] [place] [address] Assigned MTM Pharmacist 09/05/21 Nav Hughes MD [address] [place] [address] Assigned Heart and Vascular Provider 10/31/21 09/03/23 Cassandra Mendoza MD ORTHOPAEDIC SURGERY [address] [address] Assigned Musculoskeletal Provider 10/31/21 08/13/22 Estella Hassan, [facility] [address] [place] [address] Assigned MTM Pharmacist 12/09/21 Mitra Kendall, [facility] Lead Mixing Tank Operator Primary Care - CC 01/26/2210/28 Lindsay Carey OD 3305 [facility] [place] [address] Ophthalmology 01/29/22 Ravi Brownlee MD 420 [facility] 276 [place], [place] [address] Assigned Pulmonology Provider 02/06/22 09/03/23 Arabella Fishman MA Financial Resource Worker 02/22/22 02/23/22 Richard Kam MD 500 [place] [address] Assigned Musculoskeletal Provider 08/14/22 Marisol Patel, [facility] [address] [id number] Pharmacist Pharmacist 11/22/22 01/09/23 [place] [address] [place] [address] [address] Assigned Neuroscience Provider 01/01/23 12/03/24 Rosemarie Mcdowell, RN Off Track Betting Manager Diabetes Education 03/17/23 Ravi Brownlee MD [address] [address] Assigned Heart and Vascular Provider 09/04/23 01/03/24 Mitra Kendall, [facility] Lead Mixing Tank Operator Primary Care - CC 12/12/23 Lizet Mann PA-C [address], [place] [address] Assigned Cancer Care Provider 01/04/24 Ravi Brownlee MD [address] [address] Assigned Pulmonology Provider 01/04/24 Nav Hughes MD 6405 [facility] [place] [address] Assigned Heart and Vascular Provider 01/04/24 05/05/24 Manuel Ahn OD 6341 [facility] [place] [address] Flue Tile Press Operator 01/05/24 Arabella Fishman MA Financial Resource Worker 01/06/24 03/19/24 Thalia Charles [facility] [address] [place], [place] [phone] Pharmacist Pharmacy 01/26/24 Gaurav Valenzuela APRN STRAIGHT KNIFE MACHINE CUTTER 606 [facility] 106 [place] [address] Assigned Sleep Provider 02/04/24 Manuel Ahn OD 6341 [place], [place] 138[address] Assigned Surgical Provider 02/04/24 06/02/24 Debbie Mann MD 1600 [facility] 200 [place], [place] [id number] Cardiovascular Disease 02/24/24 Hakeem Chacko MBBS 2945 [place], [place] [address] Assigned Rheumatology Provider 04/05/24 Debbie Mann MD 1600 [facility] 200 [place], [place] [address] Assigned Heart and Vascular Provider 05/06/24 Timothy Tejada MD 6341 [place] [address] Ophthalmology 05/29/24 Timothy Tejada MD 6341 [place] [address] Assigned Surgical Provider 06/03/24 Elsie Roberts APRN STRAIGHT KNIFE MACHINE CUTTER 1600 [facility] 101 [place] [address] Nurse Practitioner Pain Medicine 10/16/24 Cristy Morton MD [facility] [place] [address] Assigned Pediatric Specialist Provider 11/03/24 Georgie Anguiano PA-C [address] [address] Assigned Neuroscience Provider 12/04/24 documented as of this encounter
--- OUTSIDE RECORDS SUMMARY | 2024-12-06 00:32 | XMS_ITS | Encounter Summary ---
Author Organization [place] Address [address] [place] [address] Care Team Providers Care Residential Program Manager Name Role Phone Va Glez MD Primary Care Provider Va Glze MD Unavailable Christy CampuzanoC Unavailable [phone] Hans Cannon MD Unavailable Estella Hassan [facility] Unavailable Josh Cordero MD, Madhuri Unavailable [phone] John Webb MD Unavailable John Webb MD Unavailable Estella Hassan [facility] Unavailable [phone] Lindsay Carey OD Unavailable Richard Kam MD Unavailable Gaby Vila DO Unavailable [phone] Rosemarie Mcdowell RN Unavailable [phone] Ravi Brownlee MD Unavailable [phone] Mitra Kendall DATA CONSULTANT Unavailable [phone] Lizet MannC Unavailable Ravi Brownlee MD Unavailable Nav Hughes MD Unavailable [phone] Manuel Ahn OD Unavailable Arabella Fishman PAM Unavailable Thalia Charles [facility] Unavailable Gaurav Valenzuela SOFTWARE SUPPORT SPECIALIST JUDICIAL REPORTER Unavailable Manuel Ahn OD Unavailable [phone] Debbie Mann MD Unavailable Hakeem Chacko Unavailable Debbie Mann MD Unavailable Timothy Tejada MD Unavailable Timothy Tejada MD Unavailable [phone] Elsie Roberts SOFTWARE SUPPORT SPECIALIST JUDICIAL REPORTER Unavailable + Cristy Morton MD Unavailable [phone] Georgie Anguiano PA-C Unavailable [phone] Encounter Details Date Type Department Care Team (Late st Contact Info) Description 12/29/2023 [facility] [address] [facility] [address] [place] [address] Alicja Roldan, BETY [address] [place], [place] [id number] Social History Tobacco Use Types Packs/Day Years [...] re latives? 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 Gender Identity Not on file Sexual Orientation Not on file Occupation Industry Job Start Date Job End Date Not on file Not on file Not on file Not on file documented as of this encounter Plan of Treatment Upcoming Encounters Date Type Department Care Team (Late st Contact Info) Description 12/11/2024 2:10 PM CDT Therapy Visit [address] [phone] Shanta Cooper, PT 12/14/2024 11:20 AM CDT Office Visit [address] [phone] Lizet Mann PA-C [address] [place] [address] 12/17/2024 2:10 PM CDT Office Visit [facility] [address] 4th [place] [phone] Richard Kam MD [address] [place] [address] 12/19/2024 8:20 AM CDT Therapy Visit [address] [phone] Shanta Cooper, PT 12/24/2024 5:00 PM CDT Therapy Visit [facility] [address] [place] [address] 290 [place] [phone] Pattie Casillas, PT 12/25/2024 10:20 AM CDT Therapy Visit [facility] [address] [place] [address] 290 [place] [phone] Shanta Cooper, PT 01/03/2025 1:00 PM CDT Office Visit [address] [phone] Estella Hassan, [facility] [address] [place] [address] 01/03/2025 1:30 PM CDT Office Visit [address] [phone] [place] [address] [place] [address] 01/08/2025 1:15 PM CDT Office Visit [facility] 2945 [facility] 200 [place] [phone] Hakeem Chacko MBBS [address] [place] [address] Scheduled Procedures Name Priority Associated Diagnoses Date/Ti me INJECTION, EPIDURAL, TRANSFO RAMINAL APPROACH Cervical radiculitis RELEASE, CARPAL TUNNEL, ENDOSCOPIC Right carpal tunnel syndrome documented as of this encounter Goals Goal Patient Goal Type Associated Problems Recent Progress Patient-Stated? Author Health Maintenance Care Plan HP GENERAL PROBLEM 100%(10/29/19 10:17 AM CDT) No Mitra Kendall, DATA CONSULTANT Note: Update on 05/25/22 Barriers: Currently [...] for health insurance by looking in to [email or web address] and talking with a FRW. Completed 3. I will look for a new job and will access resources that the [employer] offers. . Sarted new job 4. [...] outreach. Health Maintenance Due or Overdue 12/16/2023 Infection Onset Date Last Indicated Resolved Time Rule Out COVID-19 12/27/2023 12/27/2023 12/29/2023 1:37 PM CDT Rule Out COVID-19 03/01/2024 03/01/2024 03/01/2024 1:11 PM SUPERVISOR MICROWAVE Rule Out COVID-19 07/18/2024 07/18/2024 07/19/2024 5:52 PM CDT Rule Out COVID-19 10/17/2024 10/17/2024 10/17/2024 11:23 PM CDT Rule Out C-difficile 11/04/2024 11/04/2024 025 1:55 AM CDT Assessment Noted Time PHQ-9 Depression Total Score: 9 12/23/19 24 12:36 PM CDT documented as of this encounter Care Teams Residential Program Manager Relationship Specialty [place] [address] [place] [address] PCP - General Family Practice 07/11/14 [place] [address] [place] [address] Assigned PCP 12/16/11 Christy Campuzano PA-C [address] [place] [address] Referring Physician Family Medicine 04/22/20 [place] [address] [place] [address] Resident Pulmonary Disease 04/22/20 Estella Hassan, [facility] [place] [address] Pharmacist Pharmacist 05/26/20 Elaina Moreno MD [address] [place] [address] Cardiovascular & Thoracic Surgery 08/06/20 John Webb MD [address] [place] [id number] Cardiovascular Disease 08/25/21 John Webb MD [address] [place] [place] MD 776015 Cardiovascular Disease 08/25/21 Estella Hassan, [facility] [address] [place] [address] Assigned MTM Pharmacist 12/09/21 Lindsay Carey OD [address] [facility] [place] [address] Ophthalmology 01/29/22 Richard Kam MD [address] [place] [address] 166265 Assigned Musculoskeletal Provider 08/14/22 [place] [address] [facility] Michelle BRUT[place] MD 195147 Assigned Neuroscience Provider 01/01/23 12/03/24 Rosemarie Mcdowell, RN Aviation Technician Diabetes Education 03/17/23 Ravi Brownlee MD [address] [id number] Assigned Heart and Vascular Provider 09/04/23 01/03/24 Mitra Kendall, [facility] Lead Rn Nursery Primary Care - CC 12/12/23 Lizet Mann PA-C [address] [place] [address] Assigned Cancer Care Provider 01/04/24 Ravi Brownlee MD [address] [place] [address] Assigned Pulmonology Provider 01/04/24 Nav Hughes MD [address] [address] Assigned Heart and Vascular Provider 01/04/24 05/05/24 Manuel Ahn OD 6341 [place] [address] Drum Attendant 01/05/24 Arabella Fishman MA Financial Resource Worker 01/06/24 03/19/24 Thalia Charles [facility] [address] [place], [place] [phone] Pharmacist Pharmacy 01/26/24 Gaurav Valenzuela APRN JUDICIAL REPORTER 606 [facility] 106 [place] [address] Assigned Sleep Provider 02/04/24 Manuel Ahn OD 6341 [place] [address] Assigned Surgical Provider 02/04/24 06/02/24 Debbie Mann MD [address] [facility] 200 [place] [address] Cardiovascular Disease 02/24/24 Hakeem Chacko MBBS [address] [place] [address] Assigned Rheumatology Provider 04/05/24 Debbie Mann MD [address] [facility] 200 [place] [address] Assigned Heart and Vascular Provider 05/06/24 Timothy Tejada MD 6341 [place] [phone] Ophthalmology 05/29/24 Timothy Tejada MD 6341 [place] [address] Assigned Surgical Provider 06/03/24 Elsie Roberts APRN JUDICIAL REPORTER 1600 [facility] 101 [place] [address] Nurse Practitioner Pain Medicine 10/16/24 Cristy Morton MD [address] [place] [address] Assigned Pediatric Specialist Provider 11/03/24 Georgie Anguiano PA-C [address] [address] Assigned Neuroscience Provider 12/04/24 documented as of this encounter
--- OUTSIDE RECORDS SUMMARY | 2024-12-06 00:32 | XMS_ITS | Encounter Summary ---
Author Organization [place] Address [address] [place] [address] Care Team Providers Care Event Specialist Food Demonstrator Name Role Phone Va Glez MD Primary Care Provider Va Glez MD Unavailable Kerry Bernal RN Unavailable Ravi Barillas DPM Unavailable [phone] Christy Campuzano PA-C Unavailable [phone] Hans Cannon MD Unavailable Mitra Kendall SHOEMAKING CUTTER Unavailable [phone] Burt Jovel MD Unavailable Estella Hassan [facility] Unavailable [phone] Reji Chavez MD Unavailable Josh Cordero MD, Madhuri Unavailable [phone] Josh Cordero MD, Madhuri Unavailable [phone] Kelsi Hassan MD Unavailable [phone] John Webb MD Unavailable John Webb MD Unavailable Estella Hassan [facility] Unavailable Nav Hughes MD Unavailable [phone] Cassandra Mendoza MD Unavailable Estella Hassan RPH Unavailable Mitra Kendall SHOEMAKING CUTTER Unavailable Aurelio Lindsay Kenzie OD Unavailable Ravi Brownlee MD Unavailable Kye Arabella MA Unavailable [phone] Richard Kam MD Unavailable Marisol Patel RPH Unavailable Gaby Vila DO Unavailable Rosemarie Mcdowell RN Unavailable Ravi Brownlee MD Unavailable Mitra Kendall SHOEMAKING CUTTER Unavailable Lizet MannC Unavailable Ravi Brownlee MD Unavailable Nav Hughes MD Unavailable [phone] Manuel Ahn OD Unavailable Kye Arabella MA Unavailable [phone] Thalia Charles RP Unavailable Gaurav Valenzuela APRN CLASSIFIED AD CLERK Unavailable Manuel Ahn OD Unavailable Debbie Mann MD Unavailable Hakeem Chacko Unavailable Debbie Mann MD Unavailable Timothy Tejada MD Unavailable Timothy Tejada MD Unavailable Elsie Roberts APRN CLASSIFIED AD CLERK Unavailable + Cristy Morton MD Unavailable Georgie Anguiano PA-C Unavailable Encounter Details Date Type Department Care Team (Late st Contact Info) Description 06/24/2020 [facility] Medical Advice [address] [address] Estella Hassan, [facility] [address] [place] [address] Morbid obesity due to excess calories (H) [...] Answer Date Recorded PHQ-2 Score 0 06/05/2020 [facility] of Occupat ional Health - Occupational Stress [...] on file 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 Gender Identity Not on file Sexual Orientation [...] Description 12/11/2024 2:10 PM CDT Therapy Visit [facility] [address] [place] [address] Shanta Cooper, MOIZ 12/14/2024 11:20 AM CDT Office Visit [facility] [address] [place] [phone] Lizet Mann PA-C [address] [facility] [place] [address] 12/17/2024 2:10 PM CDT Office Visit [facility] 909 [facility] 4th [place] [address] Richard Kam MD [address] [place] [address] 12/19/2024 8:20 AM CDT Therapy Visit [address] [address] Shanta Cooper, PT 12/24/2024 5:00 PM CDT Therapy Visit [address] [address] Pattie Casillas, PT 12/25/2024 10:20 AM CDT Therapy Visit [address] [address] Shanta Cooper, PT 01/03/2025 1:00 PM CDT Office Visit [address] [address] Estella Hassan, [facility] [address] [place] [address] 01/03/2025 1:30 PM CDT Office Visit [address] [phone] Va Glez MD [address] [place] [address] 01/08/2025 1:15 PM CDT Office Visit [facility] [address] [place] [address] [address] [place] [phone] Hakeem Chacko MBBS [address] [place] [address] Scheduled Procedures Name Priority Associated Diagnoses Date/Ti [...] Out COVID-19 01/22/2022 01/22/2022 01/24/2022 1:05 PM PATENT SOLICITOR Rule Out COVID-19 01/25/2022 01/25/2022 01/25/2022 5:21 AM PATENT SOLICITOR Influenza 01/25/2022 01/25/2022 02/01/2022 11:4 1 PM PATENT SOLICITOR Rule Out COVID-19 07/29/2022 07/29/2022 07/31/2022 11:17 AM CDT Rule Out COVID-19 03/23/2023 03/23/2023 03/23/2023 6:30 PM PATENT SOLICITOR COVID-19 03/23/2023 03/23/2023 04/13/2023 11:4 0 PM PATENT SOLICITOR Rule Out COVID-19 06/05/2023 06/05/2023 06/05/2023 5:53 PM CDT Rule Out COVID-19 11/06/2023 11/06/2023 11/06/2023 11:05 PM CDT Rule Out COVID-19 11/20/2023 11/20/2023 11/20/2023 6:43 PM CDT Rule Out COVID-19 12/27/2023 12/27/2023 12/29/2023 1:37 PM CDT Rule Out COVID-19 03/01/2024 03/01/2024 03/01/2024 1:11 PM PATENT SOLICITOR Rule Out COVID-19 07/18/2024 07/18/2024 07/19/2024 5:52 PM CDT Rule Out COVID-19 10/17/2024 10/17/202410/1710/17/2024 11:23 PM CDT Rule Out C-difficile 11/04/2024 11/04/2024 025 1:55 AM CDT Assessment Noted Time PHQ-9 Depression Total Score: 2 06/06/19 21 12:47 PM CDT documented as of this encounter Care Teams Event Specialist Food Demonstrator Relationship Specialty [place] [address] [place] [address] PCP - General Family Practice 07/11/14 [place] [address] [place] [address] Assigned PCP 12/16/11 Kerry Bernal RN Personal Advocate & Liaison (PAL) 01/08/19 07/10/23 Ravi Barillas DPM [address] 014397 Assigned Musculoskeletal Provider 03/23/20 10/30/21 Christy Campuzano PA-C [address] [place] [address] 123522 Referring Physician Family Medicine 04/22/20 Hans Cannon MD [address] [place] [address] Resident Pulmonary Disease 04/22/20 Mitra Kendall, SHOEMAKING CUTTER Lead Direct Marketing Intern Primary Care - CC 01/08/1901/12 Burt Jovel MD Internal Medicine 05/08/20 12/13/23 Estella Hassan, [facility] [address] [place] [address] Pharmacist Pharmacist 05/26/20 Reji Chavez MD 6405 [facility] [place] [address] [phone] Assigned Heart and Vascular Provider 05/18/20 10/30/21 Elaina Moreno MD [address] [place] [address] Assigned Surgical Provider 05/18/20 11/19/22 Elaina Moreno MD [address] [place] [address] Cardiovascular & Thoracic Surgery 08/06/20 Kelsi Hassan MD [address] [place], [place] [address] [place] [address] Assigned Pulmonology Provider 06/28/21 02/05/22 John Webb MD [address] [address] Cardiovascular Disease 08/25/21 John Webb MD [address] 885375 Cardiovascular Disease 08/25/21 Estella Hassan, [facility] [address] [place] [address] Assigned MTM Pharmacist 09/05/21 Nav Hughes MD [address] [place] [address] Assigned Heart and Vascular Provider 10/31/21 09/03/23 Cassandra Mendoza MD ORTHOPAEDIC SURGERY [facility] [address] [address] Assigned Musculoskeletal Provider 10/31/21 08/13/22 Estella Hassan, [facility] [address] [place] [address] Assigned MTM Pharmacist 12/09/21 Mitra Kendall, [facility] Lead Direct Marketing Intern Primary Care - CC 01/26/2210/28 Lindsay Carey OD [facility]5 [facility] [place] [address] Ophthalmology 01/29/22 Ravi Brownlee MD [address] [place] [address] Assigned Pulmonology Provider 02/06/22 09/03/23 Arabella Fishman MA Financial Resource Worker 02/22/22 02/23/22 Richard Kam MD [address] [place] [address] Assigned Musculoskeletal Provider 08/14/22 Marisol Patel, [facility] [address] [id number] Pharmacist Pharmacist 11/22/22 01/09/23 [place] [address] [place] [address] [address] Assigned Neuroscience Provider 01/01/23 12/03/24 Rosemarie Mcdowell RN Icing Mixer Diabetes Education 03/17/23 Ravi Brownlee MD [address] [address] Assigned Heart and Vascular Provider 09/04/23 01/03/24 Mitra Kendall, [facility] Lead Direct Marketing Intern Primary Care - CC 12/12/23 Lizet Mann PA-C [address] [place] [address] Assigned Cancer Care Provider 01/04/24 Ravi Brownlee MD [address] [address] Assigned Pulmonology Provider 01/04/24 Nav Hughes MD 6405 [facility] [address] [place] [address] Assigned Heart and Vascular Provider 01/04/24 05/05/24 Manuel Ahn OD 6341 [facility] [place] [address] Photographic Double 01/05/24 Arabella Fishman MA Financial Resource Worker 01/06/24 03/19/24 Melvin Thalia, [facility] [address] [place], [place] [phone] Pharmacist Pharmacy 01/26/24 Gaurav Valenzuela APRN CLASSIFIED AD CLERK 606 [facility] 106 [place], [place] 376664 Assigned Sleep Provider 02/04/24 Manuel Ahn OD 6341 [place], [place] 989842 Assigned Surgical Provider 02/04/24 06/02/24 Debbie Mann MD [address] [address] Cardiovascular Disease 02/24/24 Hakeem Chacko MBBS [address] [place], [place] [address] Assigned Rheumatology Provider 04/05/24 Debbie Mann MD 1600 [facility] 200 [place], [place] 327[address] Assigned Heart and Vascular Provider 05/06/24 Timothy Tejada MD 6341 [facility] [place] [phone] Ophthalmology 05/29/24 Timothy Tejada MD [address] [place] [address] Assigned Surgical Provider 06/03/24 Elsie Roberts APRN CLASSIFIED AD CLERK 1600 [facility] [address] [place] [place] [address] Nurse Practitioner Pain Medicine 10/16/24 Cristy Morton MD 1440 [facility] [place] [place] [id number] Assigned Pediatric Specialist Provider 11/03/24 Georgie Anguiano PA-C [address] 546725 Assigned Neuroscience Provider 12/04/24 documented as of this encounter
--- OUTSIDE RECORDS SUMMARY | 2024-12-06 00:32 | XMS_ITS | Encounter Summary ---
Author Organization [facility] Address [address] [place] [address] Care Team Providers Care Lathing Supervisor Name Role Phone Va Glez MD Primary Care Provider Va Glez MD Unavailable Christy CampuzanoC Unavailable [phone] Hans Cannon MD Unavailable Estella Hassan [facility] Unavailable [phone] Josh Cordero MD, Madhuri Unavailable [phone] John Webb MD Unavailable John Webb MD Unavailable [phone] Estella Hassan [facility] Unavailable [phone] Lindsay Carey OD Unavailable Richard Kam MD Unavailable Gaby Vila DO Unavailable [phone] Rosemarie Mcdowell RN Unavailable [phone] Ravi Brownlee MD Unavailable Mitra Kendall APPRENTICE PAINTER NECKTIES Unavailable [phone] Lizet MannC Unavailable Ravi Brownlee MD Unavailable Nav Hughes MD Unavailable [phone] Manuel Ahn OD Unavailable Fishman Arabella PAM Unavailable [phone] Thalia Charles [facility] Unavailable [phone] Gaurav Valenzuela BAR ROLLER NETWORK TECHNICAL ANALYST Unavailable Manuel Ahn OD Unavailable Debbie Mann MD Unavailable Hakeem ChackoBS Unavailable Debbie Mann MD Unavailable Timothy Tejada MD Unavailable Timothy Tejada MD Unavailable Elsie Roberts BAR ROLLER NETWORK TECHNICAL ANALYST Unavailable + Cristy Morton MD Unavailable [phone] Georgie Anguiano PA-C Unavailable [phone] Encounter Details Date Type Department Care Team (Late st Contact Info) Description 12/29/2023 [facility] [address] [address] Estella Hassan, [facility] [address] [place] [address] Social History Tobacco Use Types Packs/Day Years [...] 12/23/2023 Attends [employer] Services Not on file 10/11 /2024 Active [...] Answer Date Recorded PHQ-2 Score 2 12/23/2023 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 Gender Identity Not on file Sexual Orientation Not on file Occupation Industry Job Start Date Job End Date Not on file Not on file Not on file Not on file documented as of this encounter Plan of Treatment Upcoming Encounters Date Type Department Care Team (Late st Contact Info) Description 12/11/2024 2:10 PM CDT Therapy Visit [address] [phone] Shanta Cooper, PT 12/14/2024 11:20 AM CDT Office Visit [address] [phone] Lizet Mann PA-C [address] [place] [address] 12/17/2024 2:10 PM CDT Office Visit [facility] [address] 4th [place] [phone] Richard Kam MD [address] [place] [address] 12/19/2024 8:20 AM CDT Therapy Visit [address] [address] Shanta Cooper, PT 12/24/2024 5:00 PM CDT Therapy Visit [address] [place] [phone] Pattie Casillas, PT 12/25/2024 10:20 AM CDT Therapy Visit [facility] [address] [place] [address] 290 [place] [phone] Shanta Cooper, PT 01/03/2025 1:00 PM CDT Office Visit [address] [phone] Estella Hassan, [facility] [address] [place] [address] 01/03/2025 1:30 PM CDT Office Visit [address] [phone] [place] [address] [place] [address] [id number] 01/08/2025 1:15 PM CDT Office Visit [facility] [address] [facility] 200 [place] [phone] Hakeem Chacko MBBS [address] [place] [address] Scheduled Procedures Name Priority Associated Diagnoses Date/Ti me INJECTION, EPIDURAL, TRANSFO RAMINAL APPROACH Cervical radiculitis RELEASE, CARPAL TUNNEL, ENDOSCOPIC Right carpal tunnel syndrome documented as of this encounter Goals Goal Patient Goal Type Associated Problems Recent Progress Patient-Stated? Author Health Maintenance Care Plan HP GENERAL PROBLEM 100%(10/29/19 10:17 AM CDT) No Mitra Kendall, APPRENTICE PAINTER NECKTIES Note: Update on 05/25/22 Barriers: Currently without [...] for health insurance by looking in to [employer] and talking with a FRW. Completed 3. I will look for a new job and will access resources that the [employer] offers. . Sarted new job 4. [...] Out COVID-19 03/01/2024 03/01/2024 03/01/2024 1:11 PM BUILDING MAINTENANCE REPAIRER Rule Out COVID-19 07/18/2024 07/18/2024 07/19/2024 5:52 PM CDT Rule Out COVID-19 10/17/2024 10/17/2024 10/17/2024 11:23 PM CDT Rule Out C-difficile 11/04/2024 11/04/2024 025 1:55 AM CDT Assessment Noted Time PHQ-9 Depression Total Score: 9 12/23/19 24 12:36 PM CDT documented as of this encounter Care Teams Lathing Supervisor Relationship Specialty [place] [address] [place] [address] PCP - General Family Practice 07/11/14 [place] [address] [place] [address] Assigned PCP 12/16/11 Christy Campuzano PA-C 4[address] [place] [address] Referring Physician Family Medicine 04/22/20 [place] [address] [place] [address] Resident Pulmonary Disease 04/22/20 Estella Hassan, [facility] [address] [place] [address] Pharmacist Pharmacist 05/26/20 Elaina Moreno MD [address] [place] [address] 359975 Cardiovascular & Thoracic Surgery 08/06/20 John Webb MD [address] [place] 08[address]85 Cardiovascular Disease 08/25/21 John Webb MD [address] [place] [place] 046545 Cardiovascular Disease 08/25/21 Estella Hassan, [facility] [address] [place] [address] Assigned MTM Pharmacist 12/09/21 Lindsay Carey OD [address] [facility] [place] [address] Ophthalmology 01/29/22 Richard Kam MD [address] [place] [address]0005 Assigned Musculoskeletal Provider 08/14/22 [place] [address] 187977 Assigned Neuroscience Provider 01/01/23 12/03/24 Rosemarie Mcdowell, RN Sap Developer Diabetes Education 03/17/23 Ravi Brownlee MD [address] [place] [address] Assigned Heart and Vascular Provider 09/04/23 01/03/24 Mitra Kendall, [facility] Lead Injection Maintenance Technician Primary Care - CC 12/12/23 Lizet Mann PA-C [address] [place] [address] Assigned Cancer Care Provider 01/04/24 Ravi Brownlee MD [address] [place] [address] Assigned Pulmonology Provider 01/04/24 Nav Hughes MD 6[address] [facility] [place] [address] Assigned Heart and Vascular Provider 01/04/24 05/05/24 Manuel Ahn OD [address] [facility] [place] [address] Reservations Agent 01/05/24 Arabella Fishman MA Financial Resource Worker 01/06/24 03/19/24 Thalia Charles [facility] [address] [place], [place] [phone] Pharmacist Pharmacy 01/26/24 Gaurav Valenzuela APRN NETWORK TECHNICAL ANALYST 606 [facility] 106 [place] [address] Assigned Sleep Provider 02/04/24 Manuel Ahn OD 6341 [place], [place] 504272 Assigned Surgical Provider 02/04/24 06/02/24 Debbie Mann MD 1600 [facility] 200 [place], [place] [phone] Cardiovascular Disease 02/24/24 Hakeem Chacko MBBS [address] [place] [address] Assigned Rheumatology Provider 04/05/24 Debbie Mann MD 1600 [facility] 200 [place], [place] [phone] Assigned Heart and Vascular Provider 05/06/24 Timothy Tejada MD 6341 [place] [phone] Ophthalmology 05/29/24 Timothy Tejada MD [address] [place] [phone] Assigned Surgical Provider 06/03/24 Elsie Roberts APRN NETWORK TECHNICAL ANALYST 1600 [facility] 101 [place], [place] [phone] Nurse Practitioner Pain Medicine 10/16/24 Cristy Morton MD [address] [place] [address] [address] Assigned Pediatric Specialist Provider 11/03/24 Georgie Anguiano PA-C [address] [address] Assigned Neuroscience Provider 12/04/24 documented as of this encounter
--- OUTSIDE RECORDS SUMMARY | 2024-12-06 00:32 | XMS_ITS | Encounter Summary ---
Author Organization [facility] Address [address] [place] [address] Care Team Providers Care Key Carrier Name Role Phone Va Glez MD Primary Care Provider Va Glez MD Unavailable Christy CampuzanoC Unavailable [phone] Hans Cannon MD Unavailable Estella Hassan [facility] Unavailable Josh Cordero MD, Madhuri Unavailable [phone] John Webb MD Unavailable John Webb MD Unavailable [phone] Estella Hassan [facility] Unavailable [phone] Lindsay Carey OD Unavailable Richard Kam MD Unavailable Gaby Vila DO Unavailable Rosemarie Mcdowell RN Unavailable Ravi Brownlee MD Unavailable Mitra Kendall SOCIAL WORK ASSISTANT Unavailable [phone] Lizet MannC Unavailable [phone] Ravi Brownlee MD Unavailable [phone] Nav Hughes MD Unavailable [phone] Manuel Ahn OD Unavailable [phone] Arabella Fishman PAM Unavailable [phone] Thalia Charles [facility] Unavailable NicolasGaurav GYROSCOPE TECHNICIAN TECHNICAL SUPPORT ASSISTANT Unavailable Manuel Ahn OD Unavailable Debbie Mann MD Unavailable Hakeem Chacko Unavailable Debbie Mann MD Unavailable Timothy Tejada MD Unavailable Timothy Tejada MD Unavailable [phone] Elsie Roberts GYROSCOPE TECHNICIAN TECHNICAL SUPPORT ASSISTANT Unavailable + Cristy Morton MD Unavailable [phone] Georgie Anguiano PA-C Unavailable [phone] Encounter Details Date Type Department Care Team (Late st Contact Info) Description 12/29/[address] [facility] [address] [place] [phone] Elaina Moreno MD [address] [place] [address] Social History Tobacco Use Types Packs/Day [...] re latives? Once a week 12/23/2023 Attends [employer] Services Not on file 12/22 Active [...] Answer Date Recorded PHQ-2 Score 2 12/23/2023 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 Gender Identity Not on file Sexual Orientation Not on file Occupation Industry Job Start Date Job End Date Not on file Not on file Not on file Not on file documented as of this encounter Plan of Treatment Upcoming Encounters Date Type Department Care Team (Late st Contact Info) Description 12/11/2024 2:10 PM CDT Therapy Visit [address] [phone] Shanta Cooper, PT 12/14/2024 11:20 AM CDT Office Visit [address] [phone] Lizet Mann PA-C [address] [place] [address] 12/17/2024 2:10 PM CDT Office Visit [facility] [address] 4th [place] [phone] Richard Kam MD [address] [place] [address] 12/19/2024 8:20 AM CDT Therapy Visit [address] [phone] Shanta Cooper, PT 12/24/2024 5:00 PM CDT Therapy Visit [facility] [address] [place] [address] 290 [place] [phone] Pattie Casillas, PT 12/25/2024 10:20 AM CDT Therapy Visit [facility] [address] [place] [address] 290 [place] [phone] Shanta Cooper, PT 01/03/2025 1:00 PM CDT Office Visit [address] [phone] Estella Hassan, [facility] [address] [place] [address] 01/03/2025 1:30 PM CDT Office Visit [address] [phone] [place] [address] [place] [address] [phone] 01/08/2025 1:15 PM CDT Office Visit [facility] 2945 [facility] 200 [place] [phone] Hakeem Chacko MBBS [address] [place] [address] Scheduled Procedures Name Priority Associated Diagnoses Date/Ti me INJECTION, EPIDURAL, TRANSFO RAMINAL APPROACH Cervical radiculitis RELEASE, CARPAL TUNNEL, ENDOSCOPIC Right carpal tunnel syndrome documented as of this encounter Goals Goal Patient Goal Type Associated Problems Recent Progress Patient-Stated? Author Health Maintenance Care Plan HP GENERAL PROBLEM 100%(10/29/19 10:17 AM CDT) No Mitra Kendall, SOCIAL WORK ASSISTANT Note: Update on 05/25/22 Barriers: Currently [...] for health insurance by looking in to [employer] and talking with a FRW. Completed 3. I will look for a new job and will access resources that the [employer] offers. . Sarted new job 4. 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 Rule Out COVID-19 07/18/2024 07/18/2024 07/19/2024 5:52 PM CDT Rule Out COVID-19 10/17/2024 10/17/2024 10/17/2024 11:23 PM CDT Rule Out C-difficile 11/04/2024 11/04/2024 025 1:55 AM CDT Assessment Noted Time PHQ-9 Depression Total Score: 9 12/23/19 24 12:36 PM CDT documented as of this encounter Care Teams Key Carrier Relationship Specialty [place] [address] [place] [address] PCP - General Family Practice 07/11/14 [place] [address] [place] [address] Assigned PCP 12/16/11 Christy Campuzano PA-C 4151 [place] [address] Referring Physician Family Medicine 04/22/20 [place] [address] [place] [address] Resident Pulmonary Disease 04/22/20 Estella Hassan, [facility] 30[address] [place] [address] Pharmacist Pharmacist 05/26/20 Elaina Moreno MD [address] [place] [address] 624355 Cardiovascular & Thoracic Surgery 08/06/20 John Webb MD [address] [place] 9[address]425 Cardiovascular Disease 08/25/21 John Webb MD [address] [place] 182365 Cardiovascular Disease 08/25/21 Estella Hassan, [facility] [address] [place] [address] Assigned MTM Pharmacist 12/09/21 Lindsay Carey OD [address] [facility] [place] [address] Ophthalmology 01/29/22 Richard Kam MD [address] [place] [address] 676275 Assigned Musculoskeletal Provider 08/14/22 [place] [address] [address] PE[place], [address] [address]598[address] Assigned Neuroscience Provider 01/01/23 12/03/24 Rosemarie Mcdowell, RN Emt/Dispatcher Diabetes Education 03/17/23 Ravi Brownlee MD [address] [address] Assigned Heart and Vascular Provider 09/04/23 01/03/24 Mitra Kendall, [facility] Lead Student Success Coach Primary Care - CC 12/12/23 Lizet Mann PA-C [address] [address], [place] [address] Assigned Cancer Care Provider 01/04/24 Ravi Brownlee MD [address] [place] [address] Assigned Pulmonology Provider 01/04/24 Nav Hughes MD 6405 [facility]34 [place] [address] Assigned Heart and Vascular Provider 01/04/24 05/05/24 Manuel Ahn OD 6[address] [facility] [address] Family Member Caretaker 01/05/24 Arabella Fishman MA Financial Resource Worker 01/06/24 03/19/24 Thalia Charles [facility] [address] [place], [place] [phone] Pharmacist Pharmacy 01/26/24 Gaurav Valenzuela APRN TECHNICAL SUPPORT ASSISTANT 60 [facility] 106 [place] [address] Assigned Sleep Provider 02/04/24 Manuel Ahn OD 6341 [place], [place] 714322 Assigned Surgical Provider 02/04/24 06/02/24 Debbie Mann MD 1600 [facility] 200 [place], [place] [phone] Cardiovascular Disease 02/24/24 Hakeem Chacko MBBS 2945 [place] [address] Assigned Rheumatology Provider 04/05/24 Debbie Mann MD 1600 [facility] 200 [place], [place] [address] Assigned Heart and Vascular Provider 05/06/24 Timothy Tejada MD 6341 [place] [phone] Ophthalmology 05/29/24 Timothy Tejada MD [address] [place] [address] Assigned Surgical Provider 06/03/24 Elsie Roberts APRN TECHNICAL SUPPORT ASSISTANT 1600 [facility] 101 [place], [place] [phone] Nurse Practitioner Pain Medicine 10/16/24 Cristy Mroton MD [address] [place] [place] [address] Assigned Pediatric Specialist Provider 11/03/24 Georgie Anguiano PA-C [address] [address] Assigned Neuroscience Provider 12/04/24 documented as of this encounter
--- OUTSIDE RECORDS SUMMARY | 2024-12-06 00:32 | XMS_ITS | Encounter Summary ---
Author Organization [facility] Address [address] [place] [address] Care Team Providers Care Die Keeper Name Role Phone Va Glez MD Primary Care Provider Va Glez MD Unavailable Kerry Bernal RN Unavailable Ravi Barillas DPM Unavailable [phone] Christy Campuzano PA-C Unavailable [phone] Hans Cannon MD Unavailable Mitra Kendall WATER RESOURCES TECHNICAL OFFICER Unavailable [phone] Burt Jovel MD Unavailable [phone] Estella Hassan [facility] Unavailable [phone] Reji Chavez MD Unavailable [phone] Josh Cordero MD, Madhuri Unavailable [phone] Josh Cordero MD, Madhuri Unavailable [phone] Kelsi Hassan MD Unavailable [phone] John Webb MD Unavailable John Webb MD Unavailable Estella Hassan [facility] Unavailable Nav Hughse MD Unavailable [phone] Cassandra Mendoza MD Unavailable Estella Hassan RPH Unavailable Mitra Kendall WATER RESOURCES TECHNICAL OFFICER Unavailable Aurelio Lindsay Kenzie OD Unavailable Ravi Brownlee MD Unavailable Kye Arabella MA Unavailable [phone] Richard Kam MD Unavailable Marisol Patel RPH Unavailable Gaby Vila DO Unavailable Rosemarie Mcdowell RN Unavailable Ravi Brownlee MD Unavailable Mitra Kendall WATER RESOURCES TECHNICAL OFFICER Unavailable Lizet MannC Unavailable Ravi Brownlee MD Unavailable Nav Hughes MD Unavailable [phone] Manuel Ahn OD Unavailable Kye Arabella MA Unavailable [phone] Thalia Charles RP Unavailable Gaurav Valenzuela APRN HAND FILER BALANCE WHEEL Unavailable Manuel Ahn OD Unavailable Debbie Mann MD Unavailable Hakeem Chacko Unavailable Debbie Mann MD Unavailable Timothy Tejada MD Unavailable Timothy Tejada MD Unavailable Elsie Roberts APRN HAND FILER BALANCE WHEEL Unavailable + Cristy Morton MD Unavailable Georgie Anguiano PA-C Unavailable Encounter Details Date Type Department Care Team (Late st Contact Info) Description 06/24/2020 MyC Medical Advice [address] [address] Estella Hassan, [facility] [address] [place] [address] Social History Tobacco Use Types Packs/Day Years [...] Answer Date Recorded PHQ-2 Score 0 06/05/2020 [facility] [place] [facility] Occupat ional Health - Occupational Stress [...] on file 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 Gender Identity Not on file Sexual Orientation [...] Description 12/11/2024 2:10 PM CDT Therapy Visit [facility] [address] [place] [phone] Shanta Cooper PT 12/14/2024 11:20 AM CDT Office Visit [facility] [address] [facility] [address] [facility] [place] [phone] Lizet Mann PA-C [address] [facility] [place] [address] 12/17/2024 2:10 PM CDT Office Visit [facility] [address] [facility] 4th [place] [address] Richard Kam MD [address] [place] [address] 12/19/2024 8:20 AM CDT Therapy Visit [address] [address] Shanta Cooper, PT 12/24/2024 5:00 PM CDT Therapy Visit [address] [address] Pattie Casillas, PT 12/25/2024 10:20 AM CDT Therapy Visit [address] [address] Shanta Cooper, PT 01/03/2025 1:00 PM CDT Office Visit [address] [phone] Estella Hassan, [facility] [address] [place] [address] 01/03/2025 1:30 PM CDT Office Visit [address] [phone] Va Glez MD [address] [place] [id number] 01/08/2025 1:15 PM CDT Office Visit [address] [phone] Hakeem Chacko MBBS [address] [place] [address] Scheduled Procedures Name Priority Associated Diagnoses Date/Ti me INJECTION, EPIDURAL, TRANSFO RAMINAL APPROACH Cervical radiculitis RELEASE, CARPAL TUNNEL, ENDOSCOPIC Right carpal tunnel syndrome documented as of this encounter Visit Diagnoses Not on filedocumented in this encounter Additional Health Concerns Infection Onset Date Last Indicated Resolved Time Rule Out COVID-19 06/22/2021 06/22/2021 06/23/2021 8:58 PM CDT Rule Out COVID-19 01/22/2022 01/22/2022 01/24/2022 1:05 PM PILE DRIVING NOZZLEMAN Rule Out COVID-19 01/25/2022 01/25/2022 01/25/2022 5:21 AM PILE DRIVING NOZZLEMAN Influenza 01/25/2022 01/25/2022 02/01/2022 11:4 1 PM PILE DRIVING NOZZLEMAN Rule Out COVID-19 07/29/2022 07/29/2022 07/31/2022 11:17 AM CDT Rule Out COVID-19 03/23/2023 03/23/2023 03/23/2023 6:30 PM PILE DRIVING NOZZLEMAN COVID-19 03/23/2023 03/23/2023 04/13/2023 11:4 0 PM PILE DRIVING NOZZLEMAN Rule Out COVID-19 06/05/2023 06/05/2023 06/05/2023 5:53 PM CDT Rule Out COVID-19 11/06/2023 11/06/2023 11/06/2023 11:05 PM CDT Rule Out COVID-19 11/20/2023 11/20/2023 11/20/2023 6:43 PM CDT Rule Out COVID-19 12/27/2023 12/27/2023 12/29/2023 1:37 PM CDT Rule Out COVID-19 03/01/2024 03/01/2024 03/01/2024 1:11 PM PILE DRIVING NOZZLEMAN Rule Out COVID-19 07/18/2024 07/18/2024 07/19/2024 5:52 PM CDT Rule Out COVID-19 10/17/2024 10/17/2024 10/17/2024 11:23 PM CDT Rule Out C-difficile 11/04/2024 11/04/2024 025 1:55 AM CDT Assessment Noted Time PHQ-9 Depression Total Score: 2 06/06/19 21 12:47 PM CDT documented as of this encounter Care Teams Die Keeper Relationship Specialty [place] [address] [place] [address] PCP - General Family Practice 07/11/14 [place] [address] [place] [address] Assigned PCP 12/16/11 Kerry Bernal RN Personal Advocate & Liaison (PAL) 01/08/19 07/10/23 Ravi Barillas DPM [id number] [place] [address] [address] [place] [address] Assigned Musculoskeletal Provider 03/23/20 10/30/21 Christy Campuzano PA-C [address] [place] [address] 003772 Referring Physician Family Medicine 04/22/20 Hans Cannon MD [address] [place] [address] Resident Pulmonary Disease 04/22/20 Mitra Kendall, WATER RESOURCES TECHNICAL OFFICER Lead Chainstitch Seat Joiner Primary Care - CC 01/08/1901/12 Burt Jovel MD Internal Medicine 05/08/20 12/13/23 Estella Hassan, [facility] [address] [place] [address] Pharmacist Pharmacist 05/26/20 Reji Chavez MD [address] [facility] [address] [place] [phone] Assigned Heart and Vascular Provider 05/18/20 10/30/21 Elaina Moreno MD [address] [place] [address] Assigned Surgical Provider 05/18/20 11/19/22 Elaina Moreno MD [address] [place] [address] Cardiovascular & Thoracic Surgery 08/06/20 Kelsi Hassan MD [address] [place] [address] Assigned Pulmonology Provider 06/28/21 02/05/22 John Webb MD [address] [address] Cardiovascular Disease 08/25/21 John Webb MD [address] 713815 Cardiovascular Disease 08/25/21 Estella Hassan, [facility] [address] [place] [address] Assigned MTM Pharmacist 09/05/21 Nav Hughes MD [address] [facility] [address] [address] [place] [address] Assigned Heart and Vascular Provider 10/31/21 09/03/23 Cassandra Mendoza MD ORTHOPAEDIC SURGERY [address] [address] Assigned Musculoskeletal Provider 10/31/21 08/13/22 Estella Hassan, [facility] [address] [place] [address] Assigned MTM Pharmacist 12/09/21 Mitra Kendall, [facility] Lead Chainstitch Seat Joiner Primary Care - CC 01/26/2210/28 Lindsay Carey OD [address] [facility] [place] [address] Ophthalmology 01/29/22 Ravi Brownlee MD 420 [facility] [address] [place] [address] Assigned Pulmonology Provider 02/06/22 09/03/23 Arabella Fishman MA Financial Resource Worker 02/22/22 02/23/22 Richard Kam MD 500 [place] [address] Assigned Musculoskeletal Provider 08/14/22 Marisol Patel, [facility] [address] [place] [place] [address] Pharmacist Pharmacist 11/22/22 01/09/23 [place] [address] [place], [address] [address] Assigned Neuroscience Provider 01/01/23 12/03/24 Rosemarie Mcdowell, RN Behavioral Science Chair Diabetes Education 03/17/23 Ravi Brownlee MD [address] [place] [address] 037985 Assigned Heart and Vascular Provider 09/04/23 01/03/24 Mitra Kendall, WATER RESOURCES TECHNICAL OFFICER Lead Chainstitch Seat Joiner Primary Care - CC 12/12/23 Lizet Mann PA-C [address] [place], [place] [address] [address] Assigned Cancer Care Provider 01/04/24 Ravi Brownlee MD [address] [place] [address] Assigned Pulmonology Provider 01/04/24 Nav Hughes MD [address] [place] [address] [place] [place] [address] Assigned Heart and Vascular Provider 01/04/24 05/05/24 Manuel Ahn OD 6341 [facility] [place] [address] Car Rental Manager 01/05/24 Arabella Fishman MA Financial Resource Worker 01/06/24 03/19/24 Thalia Charles [facility] [address] [place] [address] Pharmacist Pharmacy 01/26/24 Gaurav Valenzuela APRN HAND FILER BALANCE WHEEL [address] [facility] 106 [place], [place] 823304 Assigned Sleep Provider 02/04/24 Manuel Ahn OD 6341 [place], [place] 766102 Assigned Surgical Provider 02/04/24 06/02/24 Debbie Mann MD 1600 [facility] 200 [place] [address] Cardiovascular Disease 02/24/24 Hakeem Chacko MBBS [address]45 [place] [address] Assigned Rheumatology Provider 04/05/24 Debbie Mnan MD 1600 [facility] 200 [place] [address] Assigned Heart and Vascular Provider 05/06/24 Timothy Tejada MD 6341 [place] [phone] Ophthalmology 05/29/24 Timothy Tejada MD [address] [place] [phone] Assigned Surgical Provider 06/03/24 Elsie Roberts APRN HAND FILER BALANCE WHEEL 1600 [facility] [place] [address] [place] [address] Nurse Practitioner Pain Medicine 10/16/24 Cristy Morton MD [address] [facility] [place] [address] Assigned Pediatric Specialist Provider 11/03/24 Georgie Anguiano PA-C [address] [address] Assigned Neuroscience Provider 12/04/24 documented as of this encounter
--- OUTSIDE RECORDS SUMMARY | 2024-12-06 00:32 | XMS_ITS | Encounter Summary ---
Author Organization [facility] Address [address] [place] [address] Care Team Providers Care Spanish Teacher Name Role Phone Va Glez MD Primary Care Provider [phone] Va Glez MD Unavailable Christy Campuzano PAUniqueC Unavailable [phone] Hans Cannon MD Unavailable Estella Hassan [facility] Unavailable Josh Cordero MD, Madhuri Unavailable [phone] John Webb MD Unavailable [phone] John Webb MD Unavailable Estella Hassan [facility] Unavailable [phone] Lindsay Carey OD Unavailable Richard Kam MD Unavailable Gaby Vila DO Unavailable [phone] Rosemarie Mcdowell RN Unavailable Mitra Kendall BOTTLE INSPECTOR Unavailable [phone] Lizet Mann PA-C Unavailable Ravi Brownlee MD Unavailable aNv Hughes MD Unavailable [phone] Manuel Ahn Kunal OD Unavailable [phone] Arabella Fishman MA Unavailable [phone] Thalia Charles [facility] Unavailable [phone] Gaurav Valenzuela COASTAL/HARBOR DEFENSE OFFICER RESOURCE FORESTER Unavailable [phone] Anabelle Manuel Syed OD Unavailable [phone] Debbie Mann MD Unavailable [phone] Hakeem ChackoBS Unavailable Debbie Mann MD Unavailable [phone] Timothy Tejada MD Unavailable [phone] Timothy Tejada MD Unavailable [phone] Elsie Roberts COASTAL/HARBOR DEFENSE OFFICER RESOURCE FORESTER Unavailable + Cristy Morton MD Unavailable [phone] Georgie Anguiano PA-C Unavailable [phone] Encounter Details Date Type Department Care Team (Late st Contact Info) Description 01/04/2024 [facility] [address] [address] [facility] Social History Tobacco Use Types Packs/Day [...] re latives? 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 Gender Identity Not on file Sexual Orientation Not on file Occupation Industry Job Start Date Job End Date Not on file Not on file Not on file Not on file documented as of this encounter Plan of Treatment Upcoming Encounters Date Type Department Care Team (Late st Contact Info) Description 12/11/2024 2:10 PM CDT Therapy Visit [address] [phone] Shanta Cooper, PT 12/14/2024 11:20 AM CDT Office Visit [address] [place] [address] Lizet Mann PA-C [address] [place] [address] 12/17/2024 2:10 PM CDT Office Visit [facility] Orthopedic [address] [place] [phone] Richard Kam MD [address] [place] [address] 12/19/2024 8:20 AM CDT Therapy Visit [address] [place] [phone] Shanta Cooper, PT 12/24/2024 5:00 PM CDT Therapy Visit [address] [phone] Pattie Casillas, PT 12/25/2024 10:20 AM CDT Therapy Visit [facility] [address] [place] [phone] Shanta Cooper, PT 01/03/2025 1:00 PM CDT Office Visit [facility] [address] [place] [phone] Estella Hassan, [facility] [address] [place] [address] 01/03/2025 1:30 PM CDT Office Visit [facility] [address] [place] [phone] [place] [address] [place], [place] [phone] 01/08/2025 1:15 PM CDT Office Visit [facility] 2945 [facility] 200 [place] [phone] Hakeem Chacko MBBS [address]45 [place], [place] [phone] Scheduled Procedures Name Priority Associated Diagnoses Date/Ti me INJECTION, EPIDURAL, TRANSFO RAMINAL APPROACH Cervical radiculitis RELEASE, CARPAL TUNNEL, ENDOSCOPIC Right carpal tunnel syndrome documented as of this encounter Goals Goal Patient Goal Type Associated Problems Recent Progress Patient-Stated? Author Health Maintenance Care Plan HP GENERAL PROBLEM 100%(10/29/19 10:17 AM CDT) No Mitra Kendall, BOTTLE INSPECTOR Note: Update on 05/25/22 Barriers: Currently without [...] for health insurance by looking in to [employer] and talking with a FRW. Completed 3. I will look for a new job and will access resources that the [email or web address] offers. . Sarted new job 4. 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 Rule Out COVID-19 07/18/2024 07/18/2024 07/19/2024 5:52 PM CDT Rule Out COVID-19 10/17/2024 10/17/2024 10/17/2024 11:23 PM CDT Rule Out C-difficile 11/04/2024 11/04/2024 025 1:55 AM CDT Assessment Noted Time PHQ-9 Depression Total Score: 9 12/23/19 24 12:36 PM CDT documented as of this encounter Care Teams Spanish Teacher Relationship Specialty [place] [address] [place] [address] PCP - General Family Practice 07/11/14 [place] [address] [place] [address] Assigned PCP 12/16/11 Christy Campuzano PA-C [address] [place] [address] 849522 Referring Physician Family Medicine 04/22/20 Hans Cannon MD [address] [place] [address] Resident Pulmonary Disease 04/22/20 Estella Hassan, [facility] [place] [address] Pharmacist Pharmacist 05/26/20 Elaina Moreno MD 909 [place] [address] Cardiovascular & Thoracic Surgery 08/06/20 John Webb MD [address] [address] Cardiovascular Disease 08/25/21 John Webb MD [address] [address] Cardiovascular Disease 08/25/21 Estella Hassan, [facility] 3033 [facility] [place] [address] Assigned MTM Pharmacist 12/09/21 Lindsay Carey OD [address] [facility] [address] Ophthalmology 01/29/22 Richard Kam MD [address] [place] [address] Assigned Musculoskeletal Provider 08/14/22 [place] [address] [address] [place] [address] Assigned Neuroscience Provider 01/01/23 12/03/24 Rosemarie Mcdowell, RN Art Critic Diabetes Education 03/17/23 Mitra Kendall, BOTTLE INSPECTOR Lead Alliances Consultant Primary Care - CC 12/12/23 Lizet Mann PA-C [address] [place] [address] Assigned Cancer Care Provider 01/04/24 Ravi Brownlee MD [address] [place] [address] 276 [place], [place] 039225 Assigned Pulmonology Provider 01/04/24 Nav Hughes MD 6405 [facility] [place], [place] 070485 Assigned Heart and Vascular Provider 01/04/24 05/05/24 Manuel Ahn, OD 6341 [place] [address] Brake Lining Finisher Asbestos 01/05/24 Arabella Fishman MA Financial Resource Worker 01/06/24 03/19/24 Thalia Charles [facility] [address] [place], [place] [phone] Pharmacist Pharmacy 01/26/24 Gaurav Valenzuela, COASTAL/HARBOR DEFENSE OFFICER RESOURCE FORESTER [address] [place] [address] [place] [address] Assigned Sleep Provider 02/04/24 Manuel Ahn, OD 6341 [place] [address] Assigned Surgical Provider 02/04/24 06/02/24 Debbie Mann MD 1600 [facility] 200 [place] [address] Cardiovascular Disease 02/24/24 Hakeem Chacko MBBS 2945 [place] [address] Assigned Rheumatology Provider 04/05/24 Debbie Mann MD 1600 [facility] 200 [place] [address] Assigned Heart and Vascular Provider 05/06/24 Timothy Tejada MD 6341 [place] [address] Ophthalmology 05/29/24 Timothy Tejada MD [address]341 [place] [address] Assigned Surgical Provider 06/03/24 Elsie Roberts APRN CNP 1600 [facility] 101 [place] [address] Nurse Practitioner Pain Medicine 10/16/24 Cristy Morton MD [address] [place] [address] [place] [address] Assigned Pediatric Specialist Provider 11/03/24 Georgie Anguiano PA-C [address]45 [facility] [place] [place] [address] Assigned Neuroscience Provider 12/04/24 documented as of this encounter
--- OUTSIDE RECORDS SUMMARY | 2024-12-06 00:33 | XMS_ITS | Encounter Summary ---
Author Organization [employer] Address [address] [place] [address] Care Team Providers Care Medical Records Technician Name Role Phone Va Glez MD Primary Care Provider [phone] Va Glez MD Unavailable Kerry Bernal RN Unavailable [phone] Christy Campuzano PA-C Unavailable [phone] Hans Cannon MD Unavailable Mitra Kendall LICENSING SPECIALIST Unavailable Burt Jovel MD Unavailable Estella Hassan [facility] Unavailable [phone] Josh Cordero MD, Madhuri Unavailable [phone] Josh Cordero MD, Madhuri Unavailable [phone] Kelsi Hassan MD Unavailable [phone] John Webb MD Unavailable [phone] John Webb MD Unavailable Nav Hughes MD Unavailable + [phone] Cassandra Mendoza MD Unavailable Estella Hassan [facility] Unavailable Mitra Kendall LICENSING SPECIALIST Unavailable Lindsay Carey OD Unavailable Ravi Brownlee MD Unavailable Arabella Fishman MA Unavailable [phone] Richard Kam MD Unavailable JorgeMarisol Jacques [facility] Unavailable Gaby Vila DO Unavailable Rosemarie Mcdowell RN Unavailable Ravi Brownlee MD Unavailable Mitra Kendall LICENSING SPECIALIST Unavailable Lizet Mann PA-C Unavailable Ravi Brownlee MD Unavailable Nav Hughes MD Unavailable [phone] Manuel Ahn OD Unavailable Arabella Fishman MA Unavailable [phone] Thalia Charles [facility] Unavailable Gaurav Valenzuela APRN MICROBIOLOGY TECHNICIAN Unavailable Manuel Ahn OD Unavailable Debbie Mann MD Unavailable Hakeem Chacko Unavailable Debbie Mann MD Unavailable Timothy Tejada MD Unavailable Timothy Tejada MD Unavailable [phone] Elsie Roberts APRN MICROBIOLOGY TECHNICIAN Unavailable + Cristy Morton MD Unavailable Georgie Anguiano PA-C Unavailable [phone] Encounter Details Date Type Department Care Team (Late st Contact Info) Description 01/07/2022 MyC Medical Advice [address] [address] Estella Hassan, [facility] [address] [place] [address] Social History Tobacco Use Types Packs/Day Years [...] points; Administer PHQ-9 if positive 1 08/04/2021 [facility] [place] of Occupat ional Health - Occupational Stress [...] on file 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 Gender Identity Not on file [...] Description 12/11/2024 2:10 PM CDT Therapy Visit [facility] [address] [place] [phone] Shanta Cooper, MOIZ 12/14/2024 11:20 AM CDT Office Visit [facility] [id number] [place] [address] [place] [address] Lizet Mann PA-C [id number] [place], [place] [address] [address] 12/17/2024 2:10 PM CDT Office Visit [facility] [address] 4th [place] [phone] Richard Kam MD [address] [place] [address] 12/19/2024 8:20 AM CDT Therapy Visit [address] [address] Shanta Cooper, PT 12/24/2024 5:00 PM CDT Therapy Visit [address] [phone] Pattie Casillas, PT 12/25/2024 10:20 AM CDT Therapy Visit [address] [address] Shanta Cooper, PT 01/03/2025 1:00 PM CDT Office Visit [address] [phone] [address] 01/03/2025 1:30 PM CDT Office Visit [address] [phone] Va Glez MD [address] [place] [address] 01/08/2025 1:15 PM CDT Office Visit [facility] [address] [place] [phone] Hakeem Chacko MBBS [address] [place] [address] Scheduled Procedures Name Priority Associated Diagnoses Date/Ti me INJECTION, EPIDURAL, TRANSFO RAMINAL APPROACH Cervical radiculitis RELEASE, CARPAL TUNNEL, ENDOSCOPIC Right carpal tunnel syndrome documented as of this encounter Visit Diagnoses Not on filedocumented in this encounter Additional Health Concerns Infection Onset Date Last Indicated Resolved Time Rule Out COVID-19 01/22/2022 01/22/2022 01/24/2022 1:05 PM GAUGE AND WEIGH MACHINE OPERATOR Rule Out COVID-19 01/25/2022 01/25/2022 01/25/2022 5:21 AM GAUGE AND WEIGH MACHINE OPERATOR Influenza 01/25/2022 01/25/2022 02/01/2022 11:4 1 PM GAUGE AND WEIGH MACHINE OPERATOR Rule Out COVID-19 07/29/2022 07/29/2022 07/31/2022 11:17 AM CDT Rule Out COVID-19 03/23/2023 03/23/2023 03/23/2023 6:30 PM GAUGE AND WEIGH MACHINE OPERATOR COVID-19 03/23/2023 03/23/2023 04/13/2023 11:4 0 PM GAUGE AND WEIGH MACHINE OPERATOR Rule Out COVID-19 06/05/2023 06/05/2023 06/05/2023 5:53 PM CDT Rule Out COVID-19 11/06/2023 11/06/2023 11/06/2023 11:05 PM CDT Rule Out COVID-19 11/20/2023 11/20/2023 11/20/2023 6:43 PM CDT Rule Out COVID-19 12/27/2023 12/27/2023 12/29/2023 1:37 PM CDT Rule Out COVID-19 03/01/2024 03/01/2024 03/01/2024 1:11 PM GAUGE AND WEIGH MACHINE OPERATOR Rule Out COVID-19 07/18/2024 07/18/2024 07/19/2024 5:52 PM CDT Rule Out COVID-19 10/17/2024 10/17/2024 10/17/2024 11:23 PM CDT Rule Out C-difficile 11/04/2024 11/04/2024 025 1:55 AM CDT Assessment Noted Time PHQ-9 Depression Total Score: 6 08/05/19 3:46 PM CDT documented as of this encounter Care Teams Medical Records Technician Relationship Specialty [place] [address] [place] [address] PCP - General Family Practice 07/11/14 [place] [address] [place], [place] [phone] Assigned PCP 12/16/11 Kerry Bernal, INOCENCIO Personal Advocate & Liaison (PAL) 01/08/19 07/10/23 Christy Campuzano PA-C [address] [place] [address] 238202 Referring Physician Family Medicine 04/22/20 Hans Cannon MD [address] [place] [address] [phone] Resident Pulmonary Disease 04/22/20 Mitra Kendall, [facility] Lead Sorting And Folding Supervisor Primary Care - CC 01/08/1901/12 Burt Jovel MD Internal Medicine 05/08/20 12/13/23 Estella Hassan, [facility] [address] [place] [place], [place] [address] Pharmacist Pharmacist 05/26/20 Elaina Moreno MD 9 [place] [address] Assigned Surgical Provider 05/18/20 11/19/22 Elaina Moreno MD 909 [place] [address] Cardiovascular & Thoracic Surgery 08/06/20 Kelsi Hassan MD [address] [place] [address] Assigned Pulmonology Provider 06/28/21 02/05/22 John Webb MD [address] [place], [place] 99[address] Cardiovascular Disease 08/25/21 John Webb MD [address] [place], [place] [address] Cardiovascular Disease 08/25/21 Nav Hughes MD [address] [place] [address] Assigned Heart and Vascular Provider 10/31/21 09/03/23 Cassandra Mendoza MD ORTHOPAEDIC SURGERY [address] [address] Assigned Musculoskeletal Provider 10/31/21 08/13/22 Estella Hassan, [facility] [address] [place] [address] Assigned MTM Pharmacist 12/09/21 Mitra Kendall, LICENSING SPECIALIST Lead Sorting And Folding Supervisor Primary Care - CC 01/26/2210/28 Lindsay Carey OD [address] [place] [address] Ophthalmology 01/29/22 Ravi Brownlee MD [address] [place] [address] Assigned Pulmonology Provider 02/06/22 09/03/23 Arabella Fishman MA Financial Resource Worker 02/22/22 02/23/22 Richard Kam MD [address] [place] [address] Assigned Musculoskeletal Provider 08/14/22 Marisol Patel, [facility] [address] [place] [id number] Pharmacist Pharmacist 11/22/22 01/09/23 [place] [address] , [address] [address] Assigned Neuroscience Provider 01/01/23 12/03/24 Rosemarie Mcdowell, RN Child Care Director Diabetes Education 03/17/23 Ravi Brownlee MD [address] [place] [address] Assigned Heart and Vascular Provider 09/04/23 01/03/24 Mitra Kendall, LICENSING SPECIALIST Lead Sorting And Folding Supervisor Primary Care - CC 12/12/23 Lizet Mann PA-C [address] [place] [address] Assigned Cancer Care Provider 01/04/24 Ravi Brownlee MD 420 [facility] 276 [place], [place] [address] Assigned Pulmonology Provider 01/04/24 Nav Hughes MD 6[address] [facility] [address] [place], [place] 2576[address] Assigned Heart and Vascular Provider 01/04/24 05/05/24 Manuel Ahn, OD [address] [place], [place] 695992 Patient Admitting Clerk 01/05/24 Arabella [place]man [place] Financial Resource Worker 01/06/24 03/19/24 [facility] [address] [place], [place] [phone] Pharmacist Pharmacy 01/26/24 Gaurav Valenzuela APRN MICROBIOLOGY TECHNICIAN 606 [facility] 106 [place] [address] Assigned Sleep Provider 02/04/24 Manuel Ahn, OD [address] [place], [place] 774142 Assigned Surgical Provider 02/04/24 06/02/24 Debbie Mann MD 1600 [facility] 200 [place] [address] Cardiovascular Disease 02/24/24 Hakeem Chacko MBBS [address] [place] [address] Assigned Rheumatology Provider 04/05/24 Debbie Mann MD 1600 [facility] 200 [place] [address] Assigned Heart and Vascular Provider 05/06/24 Timothy Tejada MD 6[address] [place] [address] MD Ophthalmology 05/29/24 Timothy Tejada MD [address] [place] [phone] Assigned Surgical Provider 06/03/24 Elsie [place] APRN MICROBIOLOGY TECHNICIAN 1600 [facility] 101 [place] [address] Nurse Practitioner Pain Medicine 10/16/24 Cristy Morton MD [address] [place] [address] [place] [address] Assigned Pediatric Specialist Provider 11/03/24 Georgie Anguiano PA-C [address] [place] [address] Assigned Neuroscience Provider 12/04/24 documented as of this encounter
--- OUTSIDE RECORDS SUMMARY | 2024-12-06 00:33 | XMS_ITS | Encounter Summary ---
Author Organization [employer] Address [address] [place] [address] Care Team Providers Care Shovel Log Loader Operator Name Role Phone Va Glez MD Primary Care Provider Va Glez MD Unavailable Kerry Bernal RN Unavailable [phone] Ravi Barillas DPM Unavailable [phone] Christy Campuzano PA-C Unavailable Hans Cannon MD Unavailable Mitra Kendall IN STORE MARKETING ASSOCIATE Unavailable Burt Jovel MD Unavailable Estella Hassan [facility] Unavailable [phone] Reji Chavez MD Unavailable Josh Cordero MD, Madhuri Unavailable [phone] Josh Cordero MD, Madhuri Unavailable [phone] Kelsi Hassan MD Unavailable [phone] John Webb MD Unavailable John Webb MD Unavailable Estella Hassan [facility] Unavailable Nav Hughes MD Unavailable [phone] Cassandra Mendoza MD Unavailable Estella Hassan RPH Unavailable Mitra Kendall IN STORE MARKETING ASSOCIATE Unavailable Aurelio Lindsay Kenzie OD Unavailable Ravi Brownlee MD Unavailable Kye Arabella MA Unavailable [phone] Richard Kam MD Unavailable Marisol Patel RPH Unavailable Gaby Vila DO Unavailable Rosemarie Mcdowell RN Unavailable Ravi Brownlee MD Unavailable Mitra Kendall IN STORE MARKETING ASSOCIATE Unavailable Lizet MannC Unavailable Ravi Brownlee MD Unavailable Nav Hughes MD Unavailable [phone] Manuel Ahn OD Unavailable Kye Arabella MA Unavailable [phone] Thalia Charles RP Unavailable Gaurav Valenzuela APRN GRINDER HAND Unavailable Manuel Ahn OD Unavailable Debbie Mann MD Unavailable Hakeem Chacko Unavailable Debbie Mann MD Unavailable Timothy Tejada MD Unavailable Timothy Tejada MD Unavailable Elsie [place] APRN GRINDER HAND Unavailable + Cristy Morton MD Unavailable Georgie Anguiano PA-C Unavailable Encounter Details Date Type Department Care Team (Late st Contact Info) Description 07/01/2020 MyC Medical Advice [facility] Cancer [address] [address] Elaina Moreno MD [address] [place] [address] Social History Tobacco Use Types Packs/Day [...] Answer Date Recorded PHQ-2 Score 0 06/05/2020 [facility] [place] of Occupat ional Health - Occupational Stress [...] on file 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 [address] [place] [phone] Lizet Mann PA-C [address] [facility] [place] [address] 12/17/2024 2:10 PM CDT Office Visit [facility] Orthopedic [facility] 909 [facility] 4th [place] [phone] Richard Kam MD [address] [place] [address] 12/19/2024 8:20 AM CDT Therapy Visit [address] [address] Shanta Cooper, PT 12/24/2024 5:00 PM CDT Therapy Visit [address] [address] Pattie Casillas, PT 12/25/2024 10:20 AM CDT Therapy Visit [address] [address] Shanta Cooper, PT 01/03/2025 1:00 PM CDT Office Visit [address] [phone] Estella Hassan, [facility] [address] [place] [address] 01/03/2025 1:30 PM CDT Office Visit [address] [address] Va Glez MD [address] [place] [address] [id number] 01/08/2025 1:15 PM CDT Office Visit [address] [phone] Hakeem Chacko MBBS [address] [place] [address] Scheduled Procedures Name Priority Associated Diagnoses Date/Ti me INJECTION, EPIDURAL, TRANSFO RAMINAL APPROACH Cervical radiculitis RELEASE, CARPAL TUNNEL, ENDOSCOPIC Right carpal tunnel syndrome documented as of this encounter Visit Diagnoses Not on filedocumented in this encounter Additional Health Concerns Infection Onset Date Last Indicated Resolved Time Rule Out COVID-19 06/22/2021 06/22/2021 06/23/2021 8:58 PM CDT Rule Out COVID-19 01/22/2022 01/22/2022 01/24/2022 1:05 PM VISITOR SERVICES ASSOCIATE Rule Out COVID-19 01/25/2022 01/25/2022 01/25/2022 5:21 AM VISITOR SERVICES ASSOCIATE Influenza 01/25/2022 01/25/2022 02/01/2022 11:4 1 PM VISITOR SERVICES ASSOCIATE Rule Out COVID-19 07/29/2022 07/29/2022 07/31/2022 11:17 AM CDT Rule Out COVID-19 03/23/2023 03/23/2023 03/23/2023 6:30 PM VISITOR SERVICES ASSOCIATE COVID-19 03/23/2023 03/23/2023 04/13/2023 11:4 0 PM VISITOR SERVICES ASSOCIATE Rule Out COVID-19 06/05/2023 06/05/2023 06/05/2023 5:53 PM CDT Rule Out COVID-19 11/06/2023 11/06/2023 11/06/2023 11:05 PM CDT Rule Out COVID-19 11/20/2023 11/20/2023 11/20/2023 6:43 PM CDT Rule Out COVID-19 12/27/2023 12/27/2023 12/29/2023 1:37 PM CDT Rule Out COVID-19 03/01/2024 03/01/2024 03/01/2024 1:11 PM VISITOR SERVICES ASSOCIATE Rule Out COVID-19 07/18/2024 07/18/2024 07/19/2024 5:52 PM CDT Rule Out COVID-19 10/17/2024 10/17/2024 10/17/2024 11:23 PM CDT Rule Out C-difficile 11/04/2024 11/04/2024 025 1:55 AM CDT Assessment Noted Time PHQ-9 Depression Total Score: 2 06/06/19 21 12:47 PM CDT documented as of this encounter Care Teams Shovel Log Loader Operator Relationship Specialty [place] [address] [place] [address] PCP - General Family Practice 07/11/14 [place] [address] [place] [address] Assigned PCP 12/16/11 Kerry Bernal RN Personal Advocate & Liaison (PAL) 01/08/19 07/10/23 Ravi Barillas DPM [address] [facility] 300 [place] [address] Assigned Musculoskeletal Provider 03/23/20 10/30/21 Christy Campuzano PA-C [address] [place] [address] Referring Physician Family Medicine 04/22/20 Hans Cannon MD [address] [place] [address] Resident Pulmonary Disease 04/22/20 Mitra Kendall, IN STORE MARKETING ASSOCIATE Lead Liability Claims Examiner Primary Care - CC 01/08/1901/12 Burt Jovel MD Internal Medicine 05/08/20 12/13/23 Estella Hassan, [facility] [address] [place] [address] Pharmacist Pharmacist 05/26/20 Reji Chavez MD [address] [place] [phone] Assigned Heart and Vascular Provider 05/18/20 10/30/21 Elaina Moreno MD 909 [place], [place] 274735 Assigned Surgical Provider 05/18/20 11/19/22 Elaina Moreno MD [address] [place] [address] 593205 Cardiovascular & Thoracic Surgery 08/06/20 Kelsi Hassan MD [address] [place] [address] Assigned Pulmonology Provider 06/28/21 02/05/22 John Webb MD [address] [place] [address] Cardiovascular Disease 08/25/21 John Webb MD [address] [place] 933675 Cardiovascular Disease 08/25/21 Estella Hassan, [facility] [address] [place] [address] Assigned MTM Pharmacist 09/05/21 Nav Hughes MD [address] [place] [address] [place] [address] Assigned Heart and Vascular Provider 10/31/21 09/03/23 Cassandra Mendoza MD ORTHOPAEDIC SURGERY [address] [address] Assigned Musculoskeletal Provider 10/31/21 08/13/22 Estella Hassan, [facility] [address] [place] [address] Assigned MTM Pharmacist 12/09/21 Mitra Kendall, [facility] Lead Liability Claims Examiner Primary Care - CC 01/26/2210/28 Lindsay Carey OD 3305 [facility] [place] [address] Ophthalmology 01/29/22 Ravi Brownlee MD 420 [facility] 276 [place] [address] Assigned Pulmonology Provider 02/06/22 09/03/23 Arabella Fishman MA Financial Resource Worker 02/22/22 02/23/22 Richard Kam MD 500 [place] [address] Assigned Musculoskeletal Provider 08/14/22 Marisol Patel, [facility] [address] [place] [address] Pharmacist Pharmacist 11/22/22 01/09/23 [place] [address] [place], [address] 761547 Assigned Neuroscience Provider 01/01/23 12/03/24 Rosemarie Mcdowell, RN Supervisor Plating And Point Assembly Diabetes Education 03/17/23 Ravi Brownlee MD [address] [place] [address] 795855 Assigned Heart and Vascular Provider 09/04/23 01/03/24 Mitra Kendall, IN STORE MARKETING ASSOCIATE Lead Liability Claims Examiner Primary Care - CC 12/12/23 Lizet Mann PA-C [address] [place] [address] Assigned Cancer Care Provider 01/04/24 Ravi Brownlee MD [address] [place] [address] Assigned Pulmonology Provider 01/04/24 Nav Hughes MD [address] [place] [address] [address] [place] [address] Assigned Heart and Vascular Provider 01/04/24 05/05/24 Manuel Ahn OD 6341 [facility] [place] [place] [address] Distribution Center Assistant 01/05/24 Arabella Fishman MA Financial Resource Worker 01/06/24 03/19/24 Thalia Charles [facility] [address] [place] [address] Pharmacist Pharmacy 01/26/24 Gaurav Valenzuela APRN GRINDER HAND 606 [facility] 106 [place] [address] Assigned Sleep Provider 02/04/24 Manuel Ahn OD 6341 [place], [place] 480[address] Assigned Surgical Provider 02/04/24 06/02/24 Debbie Mann MD 1600 [facility] 200 [place] [address] Cardiovascular Disease 02/24/24 Hakeem Chacko MBBS 2945 [place] [address] Assigned Rheumatology Provider 04/05/24 Debbie Mann MD 1600 [facility] 200 [place] [address] Assigned Heart and Vascular Provider 05/06/24 Timothy Tejada MD 6341 [place] [phone] Ophthalmology 05/29/24 Timothy Tejada MD 6341 [place] [address] Assigned Surgical Provider 06/03/24 Elsie [place] APRN GRINDER HAND 1600 [facility] [place] [address] [place] [place] [address] Nurse Practitioner Pain Medicine 10/16/24 Cristy Morton MD 1440 [facility] [place] [address] Assigned Pediatric Specialist Provider 11/03/24 Georgie Anguiano PA-C [address] [place] [address] Assigned Neuroscience Provider 12/04/24 documented as of this encounter
--- OUTSIDE RECORDS SUMMARY | 2024-12-06 00:33 | XMS_ITS | Encounter Summary ---
Author Organization [place] Address [address] [place] [address] Care Team Providers Care Manager Of Procurement Name Role Phone Va Glez MD Primary Care Provider Va Glez MD Unavailable Kerry Bernal RN Unavailable [phone] Ravi Barillas DPM Unavailable [phone] Christy Campuzano PA-C Unavailable Hans Cannon MD Unavailable [phone] Mitra Kendall PANEL LAY UP WORKER Unavailable [phone] Burt Jovel MD Unavailable Estella Hassan [facility] Unavailable Reji Chavez MD Unavailable [phone] Josh Cordero MD, Madhuri Unavailable [phone] Josh Cordero MD, Madhuri Unavailable [phone] Kelsi Hassan MD Unavailable [phone] John Webb MD Unavailable [phone] John Webb MD Unavailable Estella Hassan [facility] Unavailable Nav Hughes MD Unavailable [phone] Cassandra Mendoza MD Unavailable Estella Hassan RPH Unavailable Mitra Kendall PANEL LAY UP WORKER Unavailable Aurelio Lindsay Kenzie OD Unavailable Ravi Brownlee MD Unavailable Kye Arabella MA Unavailable [phone] Richard Kam MD Unavailable Marisol Patel RPH Unavailable Gaby Vila DO Unavailable Rosemarie Mcdowell RN Unavailable Rvai Brownlee MD Unavailable Mitra Kendall PANEL LAY UP WORKER Unavailable Lizet MannC Unavailable Ravi Brownlee MD Unavailable Nav Hughes MD Unavailable [phone] Manuel Ahn OD Unavailable Kye Arabella MA Unavailable [phone] Thalia Charles RP Unavailable Gaurav Valenzuela APRN SURVEILLANCE DIRECTOR Unavailable Manuel Ahn OD Unavailable Debbie Mann MD Unavailable Hakeem Chacko Unavailable Debbie Mann MD Unavailable Timothy Tejada MD Unavailable Timothy Tejada MD Unavailable Elsie Roberts APRN SURVEILLANCE DIRECTOR Unavailable + Cristy Morton MD Unavailable [phone] Georgie Anguiano PA-C Unavailable [phone] Encounter Details Date Type Department Care Team (Late st Contact Info) Description 06/30/2020 MyC Medical Advice [facility] Cancer [address] [address] Elaina Moreno MD [address] [place] [address] Social History Tobacco Use Types Packs/Day [...] and Family Not on file 05/31/2019 Attends [employer] Not on file 05/30 Active Member [...] Answer Date Recorded PHQ-2 Score 0 06/05/2020 [facility] [place] of Occupat ional Health - Occupational Stress [...] on file Legal Sex Male 3:29 AM 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 9[address] [facility] 4th [place] [address] Richard Kam MD [address] [place] [address] 12/19/2024 8:20 AM CDT Therapy Visit [address] [address] Shanta Cooper, PT 12/24/2024 5:00 PM CDT Therapy Visit [address] [address] Pattie Casillas, PT 12/25/2024 10:20 AM CDT Therapy Visit [address] [address] Shanta Cooper, PT 01/03/2025 1:00 PM CDT Office Visit [address] [phone] Estella Hassan, [facility] [address] [place] [address] 01/03/2025 1:30 PM CDT Office Visit [address] [phone] Va Glez MD [address] [place] [address] [id number] 01/08/2025 1:15 PM CDT Office Visit [address] [phone] Hakeem Chacko MBBS [address] [place] [address] Scheduled Procedures Name Priority Associated Diagnoses Date/Ti me INJECTION, EPIDURAL, TRANSFO RAMINAL APPROACH Cervical radiculitis RELEASE, CARPAL TUNNEL, ENDOSCOPIC Right carpal tunnel syndrome documented as of this encounter Visit Diagnoses Not on filedocumented in this encounter Additional Health Concerns Infection Onset Date Last Indicated Resolved Time Rule Out COVID-19 06/22/2021 06/22/2021 06/23/2021 8:58 PM CDT Rule Out COVID-19 01/22/2022 01/22/2022 01/24/2022 1:05 PM CNC APPLICATIONS ENGINEER Rule Out COVID-19 01/25/2022 01/25/2022 01/25/2022 5:21 AM CNC APPLICATIONS ENGINEER Influenza 01/25/2022 01/25/2022 02/01/2022 11:4 1 PM CNC APPLICATIONS ENGINEER Rule Out COVID-19 07/29/2022 07/29/2022 07/31/2022 11:17 AM CDT Rule Out COVID-19 03/23/2023 03/23/2023 03/23/2023 6:30 PM CNC APPLICATIONS ENGINEER COVID-19 03/23/2023 03/23/2023 04/13/2023 11:4 0 PM CNC APPLICATIONS ENGINEER Rule Out COVID-19 06/05/2023 06/05/2023 06/05/2023 5:53 PM CDT Rule Out COVID-19 11/06/2023 11/06/2023 11/06/2023 11:05 PM CDT Rule Out COVID-19 11/20/2023 11/20/2023 11/20/2023 6:43 PM CDT Rule Out COVID-19 12/27/2023 12/27/2023 12/29/2023 1:37 PM CDT Rule Out COVID-19 03/01/2024 03/01/2024 03/01/2024 1:11 PM CNC APPLICATIONS ENGINEER Rule Out COVID-19 07/18/2024 07/18/2024 07/19/2024 5:52 PM CDT Rule Out COVID-19 10/17/2024 10/17/2024 10/17/2024 11:23 PM CDT Rule Out C-difficile 11/04/2024 11/04/2024 025 1:55 AM CDT Assessment Noted Time PHQ-9 Depression Total Score: 2 06/06/19 21 12:47 PM CDT documented as of this encounter Care Teams Manager Of Procurement Relationship Specialty [place] [address] [place] [address] PCP - General Family Practice 07/11/14 [place] [address] [place] [address] Assigned PCP 12/16/11 Kerry Bernal RN Personal Advocate & Liaison (PAL) 01/08/19 07/10/23 Ravi Barillas DPM [address]110 [facility] 300 [place] [address] Assigned Musculoskeletal Provider 03/23/20 10/30/21 Christy Campuzano PA-C [address] [place] [address] Referring Physician Family Medicine 04/22/20 Hans Cannon MD [address] [place] [address] Resident Pulmonary Disease 04/22/20 Mitra Kendall, PANEL LAY UP WORKER Lead Paving Block Cutter Primary Care - CC 01/08/1901/12 Burt Jovel MD Internal Medicine 05/08/20 12/13/23 Estella Hassan, [facility] [address] [place] [address] Pharmacist Pharmacist 05/26/20 Reji Chavez MD [address] [place] [phone] Assigned Heart and Vascular Provider 05/18/20 10/30/21 Elaina Moreno MD 909 [place], [place] [address] Assigned Surgical Provider 05/18/20 11/19/22 Elaina Moreno MD [address] [place] [address] 109065 Cardiovascular & Thoracic Surgery 08/06/20 Kelsi Hassan MD [address] [place] [address] Assigned Pulmonology Provider 06/28/21 02/05/22 John Webb MD [address] [address] Cardiovascular Disease 08/25/21 John Webb MD [address] 650265 Cardiovascular Disease 08/25/21 Estella Hassan, [facility] [address] [place] [address] Assigned MTM Pharmacist 09/05/21 Nav Hughes MD [address] [place] [address] Assigned Heart and Vascular Provider 10/31/21 09/03/23 Cassandra Mendoza MD ORTHOPAEDIC SURGERY [address] [address] Assigned Musculoskeletal Provider 10/31/21 08/13/22 Estella Hassan, [facility] [address] [place] [address] Assigned MTM Pharmacist 12/09/21 Mitra Kendall, [facility] Lead Paving Block Cutter Primary Care - CC 01/26/2210/28 [place] [address] [facility] [address] [place] [address] Ophthalmology 01/29/22 Ravi Brownlee MD 420 [facility] 276 [place] [address] Assigned Pulmonology Provider 02/06/22 09/03/23 Arabella Fishman MA Financial Resource Worker 02/22/22 02/23/22 Richard Kam MD 500 [place] [address] Assigned Musculoskeletal Provider 08/14/22 Marisol Patel, [facility] [address] [place] [address] Pharmacist Pharmacist 11/22/22 01/09/23 [place] [address] [place], [address] [address] Assigned Neuroscience Provider 01/01/23 12/03/24 Rosemarie Mcdowell, RN Pier Hand Diabetes Education 03/17/23 Ravi Brownlee MD [address] [place] [address] 998985 Assigned Heart and Vascular Provider 09/04/23 01/03/24 Mitra Kendall, PANEL LAY UP WORKER Lead Paving Block Cutter Primary Care - CC 12/12/23 Lizet Mann PA-C [address] [place] [address] Assigned Cancer Care Provider 01/04/24 Ravi Brownlee MD [address] [place] [address] Assigned Pulmonology Provider 01/04/24 Nav Hughes MD [address] [place] [address] [address] [address] Assigned Heart and Vascular Provider 01/04/24 05/05/24 Manuel Ahn OD 6341 [facility] [address] [place] [address] Sandstone Splitter 01/05/24 Arabella Fishman MA Financial Resource Worker 01/06/24 03/19/24 Thalia Charles [facility] [address] [place] [address] Pharmacist Pharmacy 01/26/24 Gaurav Valenzuela APRN SURVEILLANCE DIRECTOR 606 [facility] 106 [place] [address] Assigned Sleep Provider 02/04/24 Manuel Ahn OD 6341 [place], [place] 947[address] Assigned Surgical Provider 02/04/24 06/02/24 Debbie Mann MD 1600 [facility] 200 [place] [address] Cardiovascular Disease 02/24/24 Hakeem Chacko MBBS 2945 [place] [address] Assigned Rheumatology Provider 04/05/24 Debbie Mann MD 1600 [facility] 200 [place] [address] Assigned Heart and Vascular Provider 05/06/24 Timothy Tejada MD 6341 [place] [phone] Ophthalmology 05/29/24 Timothy Tejada MD [address]341 [place] [address] Assigned Surgical Provider 06/03/24 Elsie Roberts APRN SURVEILLANCE DIRECTOR 1600 [facility] ELVIS [address] [address] Nurse Practitioner Pain Medicine 10/16/24 Cristy Morton MD 1440 [facility] [place] [place] [address] Assigned Pediatric Specialist Provider 11/03/24 Georgie Anguiano PA-C [address] [address] Assigned Neuroscience Provider 12/04/24 documented as of this encounter
--- OUTSIDE RECORDS SUMMARY | 2024-12-06 00:33 | XMS_ITS | Encounter Summary ---
Author Organization [place] Address [address] [place] [address] Care Team Providers Care Insurance Agent Name Role Phone Va Glez MD Primary Care Provider Va Glez MD Unavailable Kerry Bernal RN Unavailable Ravi Barillas DPM Unavailable [phone] Christy Campuzano PA-C Unavailable Hans Cannon MD Unavailable Mitra Kendall SPECIAL POLICE Unavailable [phone] Burt Jovel MD Unavailable Estella Hassan [facility] Unavailable Reji Chavez MD Unavailable Josh Cordero MD, Madhuri Unavailable [phone] Josh Cordero MD, Madhuri Unavailable [phone] Kelsi Hassan MD Unavailable [phone] John Webb MD Unavailable John Webb MD Unavailable Estella Hassan [facility] Unavailable [phone] Nav Hughes MD Unavailable [phone] Cassandra Mendoza MD Unavailable Estella Hassan RPH Unavailable Mitra Kendall SPECIAL POLICE Unavailable Aurelio Lindsay Kenzie OD Unavailable Ravi Brownlee MD Unavailable Kye Arabella MA Unavailable [phone] Richard Kam MD Unavailable Marisol Patel RPH Unavailable Gaby Vila DO Unavailable Rosemarie Mcdowell RN Unavailable Ravi Brownlee MD Unavailable Mitra Kendall SPECIAL POLICE Unavailable Lizet MannC Unavailable Ravi Brownlee MD Unavailable Nav Hughes MD Unavailable [phone] Manuel Ahn OD Unavailable Kye Arabella MA Unavailable [phone] Thalia Charles RP Unavailable Gaurav Valenzuela APRN PHOTOGRAPHER MODEL Unavailable Manuel Ahn OD Unavailable Debbie Mann MD Unavailable Hakeem Chacko Unavailable Debbie Mann MD Unavailable Timothy Tejada MD Unavailable Timothy Tejada MD Unavailable Elsie Roberts APRN PHOTOGRAPHER MODEL Unavailable + Cristy Morton MD Unavailable Georgie Anguiano PA-C Unavailable Encounter Details Date Type Department Care Team (Late st Contact Info) Description 06/24/2020 MyC Medical Advice [facility] Cancer [address] [address] Elaina Moreno MD [address] [place] [address] Social History Tobacco Use Types Packs/Day [...] Answer Date Recorded PHQ-2 Score 0 06/05/2020 [facility] [place] of Occupat ional Health - Occupational Stress [...] on file Legal Sex 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 Rehabilitation Services [address] [place] [address] Shanta Cooper PT 12/14/2024 11:20 AM CDT Office Visit [facility] [address] [facility] [place] [phone] Lizet Mann PA-C [address] [facility] [place] [address] 12/17/2024 2:10 PM CDT Office Visit [facility] Orthopedic [facility] 909 [facility] 4th [place] [address] Richard Kam MD [address] [place] [address] 12/19/2024 8:20 AM CDT Therapy Visit [address] [address] Shanta Cooper, PT 12/24/2024 5:00 PM CDT Therapy Visit [address] [address] Pattie Casillas, PT 12/25/2024 10:20 AM CDT Therapy Visit [address] [address] Shanta Cooper, PT 01/03/2025 1:00 PM CDT Office Visit [address] [phone] Estella Hassan, [facility] 3033 [place] [address] 01/03/2025 1:30 PM CDT Office Visit [address] [phone] Va Glez MD [address] [place] [address] [id number] 01/08/2025 1:15 PM CDT Office Visit [address] [phone] Hakeem Chacko MBBS [address] [place] [address] Scheduled Procedures Name Priority Associated Diagnoses Date/Ti me INJECTION, EPIDURAL, TRANSFO RAMINAL APPROACH Cervical radiculitis RELEASE, CARPAL TUNNEL, ENDOSCOPIC Right carpal tunnel syndrome documented as of this encounter Visit Diagnoses Not on filedocumented in this encounter Additional Health Concerns Infection Onset Date Last Indicated Resolved Time Rule Out COVID-19 06/22/2021 06/22/2021 06/23/2021 8:58 PM CDT Rule Out COVID-19 01/22/2022 01/22/2022 01/24/2022 1:05 PM PHOTO COLORER Rule Out COVID-19 01/25/2022 01/25/2022 01/25/2022 5:21 AM PHOTO COLORER Influenza 01/25/2022 01/25/2022 02/01/2022 11:4 1 PM PHOTO COLORER Rule Out COVID-19 07/29/2022 07/29/2022 07/31/2022 11:17 AM CDT Rule Out COVID-19 03/23/2023 03/23/2023 03/23/2023 6:30 PM PHOTO COLORER COVID-19 03/23/2023 03/23/2023 04/13/2023 11:4 0 PM PHOTO COLORER Rule Out COVID-19 06/05/2023 06/05/2023 06/05/2023 5:53 PM CDT Rule Out COVID-19 11/06/2023 11/06/2023 11/06/2023 11:05 PM CDT Rule Out COVID-19 11/20/2023 11/20/2023 11/20/2023 6:43 PM CDT Rule Out COVID-19 12/27/2023 12/27/2023 12/29/2023 1:37 PM CDT Rule Out COVID-19 03/01/2024 03/01/2024 03/01/2024 1:11 PM PHOTO COLORER Rule Out COVID-19 07/18/2024 07/18/2024 07/19/2024 5:52 PM CDT Rule Out COVID-19 10/17/2024 10/17/2024 10/17/2024 11:23 PM CDT Rule Out C-difficile 11/04/2024 11/04/2024 025 1:55 AM CDT Assessment Noted Time PHQ-9 Depression Total Score: 2 06/06/19 21 12:47 PM CDT documented as of this encounter Care Teams Insurance Agent Relationship Specialty [place] [address] [place] [address] PCP - General Family Practice 07/11/14 [place] [address] [place] [address] Assigned PCP 12/16/11 Kerry eBrnal RN Personal Advocate & Liaison (PAL) 01/08/19 07/10/23 Ravi Barillas DPM [address] [facility] 300 [place] [address] Assigned Musculoskeletal Provider 03/23/20 10/30/21 Christy Campuzano PA-C [address] [place] [address] Referring Physician Family Medicine 04/22/20 Hans Cannon MD [address] [place] [address] Resident Pulmonary Disease 04/22/20 Mitra Kendall, SPECIAL POLICE Lead Graduate Engineer Primary Care - CC 01/08/1901/12 Burt Jovel MD Internal Medicine 05/08/20 12/13/23 Estella Hassan, [facility] 30[address] [place] [address] Pharmacist Pharmacist 05/26/20 Reji Chavez MD [address] [place] [address] Assigned Heart and Vascular Provider 05/18/20 10/30/21 Elaina Moreno MD 909 [place], [place] 7[address] Assigned Surgical Provider 05/18/20 11/19/22 Elaina Moreno MD [address] [place] [address] 359815 Cardiovascular & Thoracic Surgery 08/06/20 Kelsi Hassan MD [address] [place] [address] Assigned Pulmonology Provider 06/28/21 02/05/22 John Webb MD [address] [address] Cardiovascular Disease 08/25/21 John Webb MD [address] 114585 Cardiovascular Disease 08/25/21 Estella Hassan, [facility] [address] [place] [address] Assigned MTM Pharmacist 09/05/21 Nav Hughes MD [address] [place] [address] Assigned Heart and Vascular Provider 10/31/21 09/03/23 Cassandra Mendoza MD ORTHOPAEDIC SURGERY [address] [address] Assigned Musculoskeletal Provider 10/31/21 08/13/22 Estella Hassan, [facility] [address] [place] [address] Assigned MTM Pharmacist 12/09/21 Mitra Kendall, [facility] Lead Graduate Engineer Primary Care - CC 01/26/2210/28 Lindsay Carey OD 3305 [facility] [address] [address] Ophthalmology 01/29/22 Ravi Brownlee MD 420 [facility] 276 [place] [address] Assigned Pulmonology Provider 02/06/22 09/03/23 Arabella Fishman MA Financial Resource Worker 02/22/22 02/23/22 Richard Kam MD 500 [place] [address] Assigned Musculoskeletal Provider 08/14/22 Marisol Patel, [facility] [address] [place] [address] [address] Pharmacist Pharmacist 11/22/22 01/09/23 [place] [address] [place] PENA, [address] [address] Assigned Neuroscience Provider 01/01/23 12/03/24 Rosemarie Mcdowell, RN Toolroom Attendant Diabetes Education 03/17/23 Ravi Brownlee MD [address] [place] [address] 198395 Assigned Heart and Vascular Provider 09/04/23 01/03/24 Mitra Kendall, SPECIAL POLICE Lead Graduate Engineer Primary Care - CC 12/12/23 Lizet Mann PA-C [address] [place] [address] Assigned Cancer Care Provider 01/04/24 Ravi Brownlee MD [address] [place] [address] Assigned Pulmonology Provider 01/04/24 Nav Hughes MD [address] [place] [address] [address] [address] Assigned Heart and Vascular Provider 01/04/24 05/05/24 Manuel Ahn OD [address] [facility] [address] [address] Tipping Machine Operator Automatic 01/05/24 Arabella Fishman MA Financial Resource Worker 01/06/24 03/19/24 Thalia Charles [facility] [address] [place] [address] Pharmacist Pharmacy 01/26/24 Gaurav Valenzuela APRN PHOTOGRAPHER MODEL 606 [facility] 106 [place] [address] Assigned Sleep Provider 02/04/24 Manuel Ahn OD 6341 [place], [place] 401582 Assigned Surgical Provider 02/04/24 06/02/24 Debbie Mann MD 1600 [facility] 200 [place] [address] Cardiovascular Disease 02/24/24 Hakeem Chacko MBBS 2945 [place] [address] Assigned Rheumatology Provider 04/05/24 Debbie Mann MD 1600 [facility] 200 [place] [address] Assigned Heart and Vascular Provider 05/06/24 Timothy Tejada MD 6341 [place] [phone] Ophthalmology 05/29/24 Timothy Tejada MD 6341 [place] [address] Assigned Surgical Provider 06/03/24 Elsie Roberts APRN PHOTOGRAPHER MODEL 1600 [facility] [address] [address] Nurse Practitioner Pain Medicine 10/16/24 Cristy Morton MD 1440 [facility] [address] [address] Assigned Pediatric Specialist Provider 11/03/24 Georgie Anguiano PA-C [address] [address] Assigned Neuroscience Provider 12/04/24 documented as of this encounter
--- OUTSIDE RECORDS SUMMARY | 2024-12-06 00:33 | XMS_ITS | Encounter Summary ---
Author Organization [facility] Address [address] [place] [address] Care Team Providers Care Highway Maintainer Name Role Phone Va Glez MD Primary Care Provider Va Glez MD Unavailable Kerry Bernal RN Unavailable Ravi Barillas DPM Unavailable [phone] Christy Campuzano PA-C Unavailable Hans Cannon MD Unavailable Mitra Kendall FACTORY EXPERT Unavailable [phone] Burt Jovel MD Unavailable Estella Hassan [facility] Unavailable Reji Chavez MD Unavailable Josh Cordero MD, Madhuri Unavailable [phone] Josh Cordero MD, Madhuri Unavailable [phone] Kelsi Hsasan MD Unavailable [phone] John Webb MD Unavailable [phone] John Webb MD Unavailable [phone] Estella Hassan [facility] Unavailable [phone] Nav Hughes MD Unavailable [phone] Cassandra Mendoza MD Unavailable Estella Hassan RPH Unavailable Mitra Kendall FACTORY EXPERT Unavailable Aurelio Lindsay Kenzie OD Unavailable Ravi Brownlee MD Unavailable Kye Arabella MA Unavailable [phone] Richard Kam MD Unavailable Marisol Patel RPH Unavailable Gaby Vila DO Unavailable Rosemarie Mcdowell RN Unavailable Ravi Brownlee MD Unavailable Mitra Kendall FACTORY EXPERT Unavailable Lizet MannC Unavailable Ravi Brownlee MD Unavailable Nav Hugehs MD Unavailable [phone] Manuel Ahn OD Unavailable Kye Arabella MA Unavailable [phone] Thalia Charles RP Unavailable Gaurav Valenzuela APRN ELEVATOR OPERATOR Unavailable Manuel Ahn OD Unavailable Debbie Mann MD Unavailable Hakeem Chacko Unavailable Debbie Mann MD Unavailable Timothy Tejada MD Unavailable Timothy Tejada MD Unavailable Elsie Roberts APRN ELEVATOR OPERATOR Unavailable + Cristy Morton MD Unavailable [phone] Georgie Anguiano PA-C Unavailable Encounter Details Date Type Department Care Team (Late st Contact Info) Description 07/06/2020 MyC Medical Advice [address] [address] Estella Hassan, [facility] [address] [place] [address] Social History Tobacco Use Types Packs/Day Years [...] PHQ-2 Score 0 06/05/2020 [facility] [place] of Occupat ional Health - Occupational [...] on file 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 Gender Identity Not on file Sexual Orientation [...] Description 12/11/2024 2:10 PM CDT Therapy Visit [facility] [address] [place] [phone] Shanta Cooper PT 12/14/2024 11:20 AM CDT Office Visit [facility] [address] [facility] [place] [phone] Lizet Mann PA-C [address] [facility] [place] [address] 12/17/2024 2:10 PM CDT Office Visit [facility] Orthopedic [facility] [address] [facility] 4th [place] [address] Richard Kam MD [address] [place] [address] 12/19/2024 8:20 AM CDT Therapy Visit [address] [address] Shanta Cooper, PT 12/24/2024 5:00 PM CDT Therapy Visit [address] [address] Pattie Casillas, PT 12/25/2024 10:20 AM CDT Therapy Visit [address] [address] Shanta Cooper, PT 01/03/2025 1:00 PM CDT Office Visit [address] [phone] Estella Hassan, [facility] [address] [place] [address] 01/03/2025 1:30 PM CDT Office Visit [address] [address] Va Glez MD [address] [place] [address] [id number] 01/08/2025 1:15 PM CDT Office Visit [address] [phone] Hakeem Chacko MBBS [address] [place] [address] Scheduled Procedures Name Priority Associated Diagnoses Date/Ti me INJECTION, EPIDURAL, TRANSFO RAMINAL APPROACH Cervical radiculitis RELEASE, CARPAL TUNNEL, ENDOSCOPIC Right carpal tunnel syndrome documented as of this encounter Visit Diagnoses Not on filedocumented in this encounter Additional Health Concerns Infection Onset Date Last Indicated Resolved Time Rule Out COVID-19 06/22/2021 06/22/2021 06/23/2021 8:58 PM CDT Rule Out COVID-19 01/22/2022 01/22/2022 01/24/2022 1:05 PM CUTTING PRESSMAN Rule Out COVID-19 01/25/2022 01/25/2022 01/25/2022 5:21 AM CUTTING PRESSMAN Influenza 01/25/2022 01/25/2022 02/01/2022 11:4 1 PM CUTTING PRESSMAN Rule Out COVID-19 07/29/2022 07/29/2022 07/31/2022 11:17 AM CDT Rule Out COVID-19 03/23/2023 03/23/2023 03/23/2023 6:30 PM CUTTING PRESSMAN COVID-19 03/23/2023 03/23/2023 04/13/2023 11:4 0 PM CUTTING PRESSMAN Rule Out COVID-19 06/05/2023 06/05/2023 06/05/2023 5:53 PM CDT Rule Out COVID-19 11/06/2023 11/06/2023 11/06/2023 11:05 PM CDT Rule Out COVID-19 11/20/2023 11/20/2023 11/20/2023 6:43 PM CDT Rule Out COVID-19 12/27/2023 12/27/2023 12/29/2023 1:37 PM CDT Rule Out COVID-19 03/01/2024 03/01/2024 03/01/2024 1:11 PM CUTTING PRESSMAN Rule Out COVID-19 07/18/2024 07/18/2024 07/19/2024 5:52 PM CDT Rule Out COVID-19 10/17/2024 10/17/2024 10/17/2024 11:23 PM CDT Rule Out C-difficile 11/04/2024 11/04/2024 025 1:55 AM CDT Assessment Noted Time PHQ-9 Depression Total Score: 2 06/06/19 21 12:47 PM CDT documented as of this encounter Care Teams Highway Maintainer Relationship Specialty [place] [address] [place] [address] PCP - General Family Practice 07/11/14 [place] [address] [place] [address] Assigned PCP 12/16/11 Kerry Bernal RN Personal Advocate & Liaison (PAL) 01/08/19 07/10/23 Ravi Barillas DPM [id number] [place] [address] [address] [place] [address] Assigned Musculoskeletal Provider 03/23/20 10/30/21 Christy Campuzano PA-C [address] [place] [address] 433782 Referring Physician Family Medicine 04/22/20 Hans Cannon MD [address] [place] [address] Resident Pulmonary Disease 04/22/20 Mitra Kendall, FACTORY EXPERT Lead Transition Of Care Specialist Primary Care - CC 01/08/1901/12 Burt Jovel MD Internal Medicine 05/08/20 12/13/23 Estella Hassan, [facility] [address] [place] [address] Pharmacist Pharmacist 05/26/20 Reji Chavez MD [address] [facility] [address] [place] [phone] Assigned Heart and Vascular Provider 05/18/20 10/30/21 Elaina Moreno MD [address] [place] [address] Assigned Surgical Provider 05/18/20 11/19/22 Elaina Moreno MD [address] [place] [address] Cardiovascular & Thoracic Surgery 08/06/20 Kelsi Hassan MD [address] [place] [address] Assigned Pulmonology Provider 06/28/21 02/05/22 John Webb MD [address] [address] Cardiovascular Disease 08/25/21 John Webb MD [address] 132185 Cardiovascular Disease 08/25/21 Estella Hassan, [facility] [address] [place] [address] Assigned MTM Pharmacist 09/05/21 Nav Hughes MD [address] [facility] [address] [place] [address] Assigned Heart and Vascular Provider 10/31/21 09/03/23 Cassandra Mendoza MD ORTHOPAEDIC SURGERY [address] [address] Assigned Musculoskeletal Provider 10/31/21 08/13/22 Estella Hassan, [facility] [address] [place] [address] Assigned MTM Pharmacist 12/09/21 Mitra Kendall, [facility] Lead Transition Of Care Specialist Primary Care - CC 01/26/2210/28 Lindsay Carey OD [address] [facility] [place] [address] Ophthalmology 01/29/22 Ravi Brownlee MD [address] [facility] [address] [place] [address] Assigned Pulmonology Provider 02/06/22 09/03/23 Arabella Fishman MA Financial Resource Worker 02/22/22 02/23/22 Richard Kam MD 500 [place] [address] Assigned Musculoskeletal Provider 08/14/22 Marisol Patel, [facility] [address] [place] [address] Pharmacist Pharmacist 11/22/22 01/09/23 [place] [address] [place], [address] [address] Assigned Neuroscience Provider 01/01/23 12/03/24 Rosemarie Mcdowell, RN Classroom Monitor Diabetes Education 03/17/23 Ravi Brownlee MD [address] [place] [address] 507755 Assigned Heart and Vascular Provider 09/04/23 01/03/24 Mitra Kendall, FACTORY EXPERT Lead Transition Of Care Specialist Primary Care - CC 12/12/23 Lizet Mann PA-C [address] [place], [place] [address] [address] Assigned Cancer Care Provider 01/04/24 Ravi Brownlee MD [address] [place] [address] Assigned Pulmonology Provider 01/04/24 Nav Hughes MD [address] [place] [address] [place] [address] Assigned Heart and Vascular Provider 01/04/24 05/05/24 Manuel Ahn OD [address] [facility] [place] [address] Lead Sales Consultant 01/05/24 Arabella Fishman MA Financial Resource Worker 01/06/24 03/19/24 Thalia Charles [facility] [address] [place] [address] Pharmacist Pharmacy 01/26/24 Gaurav Valenzuela APRN ELEVATOR OPERATOR [address] [facility] 106 [place], [place] 479824 Assigned Sleep Provider 02/04/24 Manuel Ahn OD 6341 [place], [place] [address] Assigned Surgical Provider 02/04/24 06/02/24 Debbie Mann MD 1600 [facility] 200 [place] [address] Cardiovascular Disease 02/24/24 Hakeem Chacko MBBS [address]45 [place] [address] Assigned Rheumatology Provider 04/05/24 Debbie Mann MD 1600 [facility] 200 [place] [address] Assigned Heart and Vascular Provider 05/06/24 Timothy Tejada MD 6341 [place] [phone] Ophthalmology 05/29/24 Timothy Tejada MD [address]341 [place] [address] Assigned Surgical Provider 06/03/24 Elsie Roberts APRN ELEVATOR OPERATOR 1600 [facility] [place] [address] [place] [address] Nurse Practitioner Pain Medicine 10/16/24 Cristy Morton MD 1440 [facility] [place] [address] Assigned Pediatric Specialist Provider 11/03/24 Georgie Anguiano PA-C [address] [address] Assigned Neuroscience Provider 12/04/24 documented as of this encounter
--- OUTSIDE RECORDS SUMMARY | 2024-12-06 00:33 | XMS_ITS | Encounter Summary ---
Author Organization [facility] Address [address] [place] [address] Care Team Providers Care Lead Pressman Name Role Phone Va Glez MD Primary Care Provider Va Glez MD Unavailable Christy Campuzano PAUniqueC Unavailable [phone] Hans Cannon MD Unavailable Estella Hassan [facility] Unavailable Josh Cordero MD, Madhuri Unavailable [phone] John Webb MD Unavailable [phone] John Webb MD Unavailable Estella Hassan [facility] Unavailable Lindsay Carey OD Unavailable [phone] Richard Kam MD Unavailable Gaby Vila DO Unavailable [phone] Rosemarie Mcdowell RN Unavailable [phone] Mitra Kendall SOLDERER TORCH Unavailable [phone] Lizet Mann PA-C Unavailable Ravi Brownlee MD Unavailable Nav Hughes MD Unavailable [phone] Manuel Ahn OD Unavailable [phone] Arabella Fishman MA Unavailable [phone] Thalia Charles [facility] Unavailable [phone] Gaurav Valenzuela WOOD HEEL FLAP RUBBER CRANK HAND Unavailable [phone] Dayday Ahngina Syed OD Unavailable [phone] Debbie Mann MD Unavailable [phone] Hakeem ChackoBS Unavailable Debbie Mann MD Unavailable [phone] Timothy Tejada MD Unavailable [phone] Timothy Tejada MD Unavailable [phone] Elsie Roberts WOOD HEEL FLAP RUBBER CRANK HAND Unavailable + Cristy Morton MD Unavailable [phone] Georgie Anguiano PA-C Unavailable [phone] Encounter Details Date Type Department Care Team (Late st Contact Info) Description 01/13/2024 MyC Medical Advice [facility] [address] [place] [address] Claribel Mauricio RN Social History Tobacco Use Types Packs/Day [...] Answer Date Recorded PHQ-2 Score 2 12/23/2023 [facility] of Occupat ional [facility] - Occupational Stress Questionnaire Answer [...] in an overnight mcfp, 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.) Yes 12/23/2023 Are you worried [...] on file 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 Gender Identity Not on file Sexual Orientation Not on file Occupation Industry Job Start Date Job End Date Not on file Not on file Not on file Not on file documented as of this encounter Plan of Treatment Upcoming Encounters Date Type Department Care Team (Late st Contact Info) Description 12/11/2024 2:10 PM CDT Therapy [place] [address] [place] [phone] Shanta Cooper, PT 12/14/2024 11:20 AM CDT Office Visit [address] [address] Lizet Mann PA-C [address] [place] [address] 12/17/2024 2:10 PM CDT Office Visit [facility] Orthopedic [address] [place] [address] Richard Kam MD [address] [place] [address] 12/19/2024 8:20 AM CDT Therapy Visit [place] [address] [place] [phone] Shanta Cooper, PT 12/24/2024 5:00 PM CDT Therapy [place] [address] [place] [phone] Pattie Casillas, PT 12/25/2024 10:20 AM CDT Therapy Visit [facility] [place] [address] 290 [place] [phone] Shanta Cooper, PT 01/03/2025 1:00 PM CDT Office Visit [facility] [address] [place] [phone] Estella Hassan, [facility] [address] [place] [address] 01/03/2025 1:30 PM CDT Office Visit [facility] [address] [place] [phone] [place] [address] [place], [place] [phone] 01/08/2025 1:15 PM CDT Office Visit [facility] 2945 [facility] 200 [place] [phone] Hakeem Chacko MBBS [address] [place] [address] [phone] Scheduled Procedures Name Priority Associated Diagnoses Date/Ti me INJECTION, EPIDURAL, TRANSFO RAMINAL APPROACH Cervical radiculitis RELEASE, CARPAL TUNNEL, ENDOSCOPIC Right carpal tunnel syndrome documented as of this encounter Goals Goal Patient Goal Type Associated Problems Recent Progress Patient-Stated? Author Health Maintenance Care Plan HP GENERAL PROBLEM 100%(10/29/19 10:17 AM CDT) No Mitra Kendall, SOLDERER TORCH Note: Update on 05/25/22 Barriers: Currently without [...] for health insurance by looking in to [employer] and talking with a FRW. Completed 3. I will look for a new job and will access resources that the [employer] offers. . Sarted new job 4. Continue [...] by household income. 2. I will contact [facility] to ask about medicare plans and if there are saving programs I qualify for by by calling [phone]. 3. I will see if I am eligible for unemployment after losing my job. I will call [phone] to ask for assistance with unemployment application. 4. I will apply for jobs. I will work with [employer] in finding a job (Empowerment.) 5. I will access [employer] and ask about financial resources (such as [...] accurate information and submit it to the [facility]. 3. I will update CCC Team at outreach. Health Maintenance Due or Overdue 12/16/2023 Patient expresses financial resource strain 12/13 Infection Onset Date Last Indicated Resolved Time Rule Out COVID-19 03/01/2024 03/01/2024 03/01/2024 1:11 PM COMPUTER SYSTEMS SOFTWARE ARCHITECT Rule Out COVID-19 07/18/2024 07/18/2024 07/19/2024 5:52 PM CDT Rule Out COVID-19 10/17/2024 10/17/2024 10/17/2024 11:23 PM CDT Rule Out C-difficile 11/04/2024 11/04/2024 025 1:55 AM CDT Assessment Noted Time PHQ-9 Depression Total Score: 9 12/23/19 24 12:36 PM CDT documented as of this encounter Care Teams Lead Pressman Relationship Specialty [place] [address] [place] [address] PCP - General Family Practice 07/11/14 [place] [address] [place] [address] Assigned PCP 12/16/11 Christy Campuzano PA-C [address] [place] [address] 510152 Referring Physician Family Medicine 04/22/20 Hans Cannon MD [address] [place] [address] Resident Pulmonary Disease 04/22/20 Estella Hassan, [facility] [place] [address] Pharmacist Pharmacist 05/26/20 Elaina Moreno MD [address] [place] [address] Cardiovascular & Thoracic Surgery 08/06/20 John Webb MD [address] 498445 Cardiovascular Disease 08/25/21 John Webb MD [address] [place] 549995 Cardiovascular Disease 08/25/21 Estella Hassan, [facility] [place] [address] Assigned MTM Pharmacist 12/09/21 Lindsay Carey, ARA [address] [facility] [address] [place] [phone] Ophthalmology 01/29/22 Richard Kam MD 500 [place], [place] [address]915 Assigned Musculoskeletal Provider 08/14/22 [place] [address] [place] , [address] [phone] Assigned Neuroscience Provider 01/01/23 12/03/24 Rosemarie Mcdowell RN Commercial Credit Lead Diabetes Education 03/17/23 Mitra Kendall, SOLDERER TORCH Lead Maintenance Representative Primary Care - CC 12/12/23 Lizet Mann PA-C [address] [place] [address] 120519 Assigned Cancer Care Provider 01/04/24 Ravi Brownlee MD [address] [place] [address] 157335 Assigned Pulmonology Provider 01/04/24 Nav Hughes MD 6405 [facility] [place] 639665 Assigned Heart and Vascular Provider 01/04/24 05/05/24 Manuel Ahn OD 6341 [facility] [place] [id number] Filtration Operator 01/05/24 Arabella Fishman MA Financial Resource Worker 01/06/24 03/19/24 Melvin Thalia [facility] [address] [place], [place] [phone] Pharmacist Pharmacy 01/26/24 Gaurav Valenzuela APRN CRANK HAND [address] [facility] 106 [place] [address] Assigned Sleep Provider 02/04/24 Manuel Ahn OD 6341 [place] [address] Assigned Surgical Provider 02/04/24 06/02/24 Debbie Mann MD [address] [phone] Cardiovascular Disease 02/24/24 Hakeem Chacko MBBS 2945 [place] [address] Assigned Rheumatology Provider 04/05/24 Debbie Mann MD 1600 [facility] 200 [place] [address] Assigned Heart and Vascular Provider 05/06/24 Timothy Tejada MD 6341 [place] [address] Ophthalmology 05/29/24 Timothy Tejada MD 6341 [facility] [address] Assigned Surgical Provider 06/03/24 Elsie Roberts APRN CRANK HAND 1600 [facility] [place] [address] [place] [address] Nurse Practitioner Pain Medicine 10/16/24 Cristy Morton MD [facility] [place] [address] Assigned Pediatric Specialist Provider 11/03/24 Georgie Anguiano PA-C [address] [address] Assigned Neuroscience Provider 12/04/24 documented as of this encounter
--- OUTSIDE RECORDS SUMMARY | 2024-12-06 00:33 | XMS_ITS | Encounter Summary ---
Author Organization [facility] Address [address] [place] [address] Care Team Providers Care Delimer Name Role Phone Va Glez MD Primary Care Provider Va Glez MD Unavailable Christy Campuzano PAUniqueC Unavailable [phone] Hans Cannon MD Unavailable Estella Hassan [facility] Unavailable [phone] Josh Cordero MD, Madhuri Unavailable [phone] John Webb MD Unavailable [phone] John Webb MD Unavailable Estella Hassan [facility] Unavailable Lindsay Carey OD Unavailable [phone] Richard Kam MD Unavailable Gaby Vila DO Unavailable Rosemarie Mcdowell RN Unavailable Mitra Kendall HIGH SCHOOL ENGLISH TEACHER Unavailable [phone] Lizet Mann PA-C Unavailable Ravi Brownlee MD Unavailable Nav Hughes MD Unavailable [phone] Manuel Ahn OD Unavailable [phone] Arabella Fishman MA Unavailable [phone] Thalia Charles [facility] Unavailable [phone] Gaurav Valenzuela PIPING ENGINEER [employer] Unavailable [phone] Dayday Ahngina Syed OD Unavailable [phone] Debbie Mann MD Unavailable [phone] Hakeem ChackoBS Unavailable Debbie Mann MD Unavailable [phone] Timothy Tejada MD Unavailable [phone] Timothy Tejada MD Unavailable [phone] Elsie Roberts PIPING ENGINEER [employer] Unavailable + Cristy Morton MD Unavailable [phone] Georgie Anguiano PA-C Unavailable [phone] Encounter Details Date Type Department Care Team (Late st Contact Info) Description 01/04/2024 MyC Medical Advice [facility] [address] [place] [phone] Claribel Mauricio RN Social History Tobacco [...] Answer Date Recorded PHQ-2 Score 2 12/23/2023 [facility] of Occupat ional [facility] - Occupational Stress Questionnaire Answer Date [...] on file 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 Gender Identity Not on file Sexual Orientation Not on file Occupation Industry Job Start Date Job End Date Not on file Not on file Not on file Not on file documented as of this encounter Plan of Treatment Upcoming Encounters Date Type Department Care Team (Late st Contact Info) Description 12/11/2024 2:10 PM CDT Therapy Visit [address] [place] [phone] Shanta Cooper, PT 12/14/2024 11:20 AM CDT Office Visit [address] [address] Lizet Mann PA-C [address] [place] [address] 12/17/2024 2:10 PM CDT Office Visit [facility] Orthopedic [address] [place] [phone] Richard Kam MD [address] [place] [address] 12/19/2024 8:20 AM CDT Therapy Visit [place] [address] [place] [phone] Shanta Cooper, PT 12/24/2024 5:00 PM CDT Therapy Visit [address] [place] [phone] Pattie Casillas, PT 12/25/2024 10:20 AM CDT Therapy Visit [facility] Rehabilitation Services [place] [address] [place] [phone] Shanta Cooper, PT 01/03/2025 1:00 PM CDT Office Visit [facility] [address] [place] [phone] Estella Hassan, [facility] [address] [place] [address] 01/03/2025 1:30 PM CDT Office Visit [facility] [address] [place] [phone] [place] [address] [place], [place] [phone] 01/08/2025 1:15 PM CDT Office Visit [facility] 2945 [facility] 200 [place] [phone] Hakeem Chacko MBBS [address] [place] [address] [phone] Scheduled Procedures Name Priority Associated Diagnoses Date/Ti me INJECTION, EPIDURAL, TRANSFO RAMINAL APPROACH Cervical radiculitis RELEASE, CARPAL TUNNEL, ENDOSCOPIC Right carpal tunnel syndrome documented as of this encounter Goals Goal Patient Goal Type Associated Problems Recent Progress Patient-Stated? Author Health Maintenance Care Plan HP GENERAL PROBLEM 100%(10/29/19 10:17 AM CDT) No Mitra Kendall, HIGH SCHOOL ENGLISH TEACHER Note: Update on 05/25/22 Barriers: Currently without [...] for health insurance by looking in to [employer] and talking with a FRW. Completed 3. I will look for a new job and will access resources that the [employer] offers. . Sarted new job 4. Continue [...] Out COVID-19 03/01/2024 03/01/2024 03/01/2024 1:11 PM PROTECTION OFFICER Rule Out COVID-19 07/18/2024 07/18/2024 07/19/2024 5:52 PM CDT Rule Out COVID-19 10/17/2024 10/17/2024 10/17/2024 11:23 PM CDT Rule Out C-difficile 11/04/2024 11/04/2024 025 1:55 AM CDT Assessment Noted Time PHQ-9 Depression Total Score: 9 12/23/19 24 12:36 PM CDT documented as of this encounter Care Teams Delimer Relationship Specialty [place] [address] [place] [address] PCP - General Family Practice 07/11/14 [place] [address] [place] [address] Assigned PCP 12/16/11 Christy Campuzano PA-C [address] [place] [address] [id number] Referring Physician Family Medicine 04/22/20 Hans Cannon MD [address] [place] [address] 647282 Resident Pulmonary Disease 04/22/20 Estella Hassan, [facility] [place] [address] Pharmacist Pharmacist 05/26/20 Elaina Moreno MD 909 [place] [address] Cardiovascular & Thoracic Surgery 08/06/20 John Webb MD [address] [address] Cardiovascular Disease 08/25/21 John Webb MD [address] 052715 Cardiovascular Disease 08/25/21 Estella Hassan, [facility] 3033 [place] [address] Assigned MTM Pharmacist 12/09/21 Lindsay Carey OD [address] [facility] [place] [address] Ophthalmology 01/29/22 Richard Kam MD 500 [place] [address] Assigned Musculoskeletal Provider 08/14/22 [place] [address] 102867 Assigned Neuroscience Provider 01/01/23 12/03/24 Rosemarie Mcdowell, RN Cake Froster Diabetes Education 03/17/23 Mitra Kendall, HIGH SCHOOL ENGLISH TEACHER Lead Fashion Styling Intern Primary Care - CC 12/12/23 Lizet Mann PA-C [address] [place] [address] Assigned Cancer Care Provider 01/04/24 Ravi Brownlee MD [address] [place] [address] 276 [place], [place] 3[address]85 Assigned Pulmonology Provider 01/04/24 Nav Hughes MD 6405 [facility] [place], [place] 962335 Assigned Heart and Vascular Provider 01/04/24 05/05/24 Manuel Ahn, ARA 6341 [place] [address] Air Pollution Compliance Inspector 01/05/24 Arabella Fishman MA Financial Resource Worker 01/06/24 03/19/24 Thalia Charles RPH [address] [place], [place] [phone] Pharmacist Pharmacy 01/26/24 Gaurav Valenzuela, [employer] [facility] [employer] [address] [place] [address] [place] [address] Assigned Sleep Provider 02/04/24 Manuel Ahn, OD 6341 [place] [address] Assigned Surgical Provider 02/04/24 06/02/24 Debbie Mann MD 1600 [facility] 200 [place] [address] Cardiovascular Disease 02/24/24 Hakeem Chacko MBBS 2945 [place] [address] Assigned Rheumatology Provider 04/05/24 Debbie Mann MD 1600 [facility] 200 [place] [address] Assigned Heart and Vascular Provider 05/06/24 Timothy Tejada MD 6341 [place] [address] Ophthalmology 05/29/24 Timothy Tejada MD 6341 [place] [address] Assigned Surgical Provider 06/03/24 Elsie Roberts APRN CNP [address] [facility] 101 [place] [address] Nurse Practitioner Pain Medicine 10/16/24 Cristy Morton MD [address] [place] [address] [place] [address] Assigned Pediatric Specialist Provider 11/03/24 Georgie Anguiano PA-C [address] [facility] [place] [address] Assigned Neuroscience Provider 12/04/24 documented as of this encounter
--- OUTSIDE RECORDS SUMMARY | 2024-12-06 00:33 | XMS_ITS | Encounter Summary ---
Author Organization [facility] Address [address] [place] [address] Care Team Providers Care Pastry Decorator Name Role Phone Va Glez MD Primary Care Provider Va Glez MD Unavailable Kerry Bernal RN Unavailable Ravi Barillas DPM Unavailable [phone] Christy Campuzano PA-C Unavailable Hans Cannon MD Unavailable Mitra Kendall ATTORNEY LAW CLERK Unavailable Burt Jovel MD Unavailable Estella Hassan [facility] Unavailable Reji Chavez MD Unavailable Johs Cordero MD, Madhuri Unavailable [phone] Josh Cordero MD, Madhuri Unavailable [phone] Kelsi Hassan MD Unavailable [phone] John Webb MD Unavailable John Webb MD Unavailable [phone] Estella Hassan [facility] Unavailable Nav Hughes MD Unavailable [phone] Cassandra Mendoza MD Unavailable Estella Hassan RPH Unavailable Mitra Kendall ATTORNEY LAW CLERK Unavailable Aurelio Lindsay Kenzie OD Unavailable Ravi Brownlee MD Unavailable Kye Arabella MA Unavailable [phone] Richard Kam MD Unavailable Marisol Patel RPH Unavailable Gaby Vila DO Unavailable Rosemarie Mcdowell RN Unavailable Ravi Brownlee MD Unavailable Mitra Kendall ATTORNEY LAW CLERK Unavailable Lizet MannC Unavailable Ravi Brownlee MD Unavailable Nav Hughes MD Unavailable [phone] Manuel Ahn OD Unavailable Kye Arabella MA Unavailable [phone] Thalia Charles RP Unavailable Gaurav Valenzuela APRN CLUBHOUSE MANAGER Unavailable Manuel Ahn OD Unavailable Debbie Mann MD Unavailable Hakeem Chacko Unavailable Debbie Mann MD Unavailable Timothy Tejada MD Unavailable Timothy Tejada MD Unavailable Elsie Roberts APRN CLUBHOUSE MANAGER Unavailable + Cristy Morton MD Unavailable Georgie Anguiano PA-C Unavailable [phone] Encounter Details Date Type Department Care Team (Late st Contact Info) Description 06/29/2020 MyC Medical Advice [facility] [address] [place] [phone] [place] [id number] [place] [address] Social History Tobacco Use Types Packs/Day [...] Date Recorded PHQ-2 Score 0 06/05/2020 [facility] of Occupat ional [facility] - Occupational Stress Questionnaire Answer Date [...] on file Legal 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 Gender Identity Not on file Sexual [...] Therapy Visit [facility] [address] [place] [phone] Shanta Cooper PT 12/14/2024 11:20 AM CDT Office Visit [facility] [address] [place] [address] [place] [phone] Lizet Mann PA-C [address] [facility] [place] [address] 12/17/2024 2:10 PM CDT Office Visit [facility] Orthopedic [facility] 909 [facility] 4th [place] [phone] Richard Kam MD [address] [place] [address] 12/19/2024 8:20 AM CDT Therapy Visit [address] [address] Shanta Cooper, PT 12/24/2024 5:00 PM CDT Therapy Visit [address] [address] Pattie Casillas, PT 12/25/2024 10:20 AM CDT Therapy Visit [address] [address] Shanta Cooper, PT 01/03/2025 1:00 PM CDT Office Visit [address] [phone] Estella Hassan, [facility] 3033 [place] [address] 01/03/2025 1:30 PM CDT Office Visit [address] [phone] [place] [id number] [place] [address] 01/08/2025 1:15 PM CDT Office Visit [address] [address] Hakeem Chacko MBBS [address] [place] [address] Scheduled Procedures Name Priority Associated Diagnoses Date/Ti me INJECTION, EPIDURAL, TRANSFO RAMINAL APPROACH Cervical radiculitis RELEASE, CARPAL TUNNEL, ENDOSCOPIC Right carpal tunnel syndrome documented as of this encounter Visit Diagnoses Not on filedocumented in this encounter Additional Health Concerns Infection Onset Date Last Indicated Resolved Time Rule Out COVID-19 06/22/2021 06/22/2021 06/23/2021 8:58 PM CDT Rule Out COVID-19 01/22/2022 01/22/2022 01/24/2022 1:05 PM CAPACITY PLANNING ANALYST Rule Out COVID-19 01/25/2022 01/25/2022 01/25/2022 5:21 AM CAPACITY PLANNING ANALYST Influenza 01/25/2022 01/25/2022 02/01/2022 11:4 1 PM CAPACITY PLANNING ANALYST Rule Out COVID-19 07/29/2022 07/29/2022 07/31/2022 11:17 AM CDT Rule Out COVID-19 03/23/2023 03/23/2023 03/23/2023 6:30 PM CAPACITY PLANNING ANALYST COVID-19 03/23/2023 03/23/2023 04/13/2023 11:4 0 PM CAPACITY PLANNING ANALYST Rule Out COVID-19 06/05/2023 06/05/2023 06/05/2023 5:53 PM CDT Rule Out COVID-19 11/06/2023 11/06/2023 11/06/2023 11:05 PM CDT Rule Out COVID-19 11/20/2023 11/20/2023 11/20/2023 6:43 PM CDT Rule Out COVID-19 12/27/2023 12/27/2023 12/29/2023 1:37 PM CDT Rule Out COVID-19 03/01/2024 03/01/2024 03/01/2024 1:11 PM CAPACITY PLANNING ANALYST Rule Out COVID-19 07/18/2024 07/18/2024 07/19/2024 5:52 PM CDT Rule Out COVID-19 10/17/2024 10/17/2024 10/17/2024 11:23 PM CDT Rule Out C-difficile 11/04/2024 11/04/2024 025 1:55 AM CDT Assessment Noted Time PHQ-9 Depression Total Score: 2 06/06/19 21 12:47 PM CDT documented as of this encounter Care Teams Pastry Decorator Relationship Specialty [place] [address] [place] [address] PCP - General Family Practice 07/11/14 [place] [address] [place] [address] Assigned PCP 12/16/11 Kerry Bernal RN Personal Advocate & Liaison (PAL) 01/08/19 07/10/23 Ravi Barillas DPM [id number] [place] [address] [address] [place] [address] Assigned Musculoskeletal Provider 03/23/20 10/30/21 Christy Campuzano PA-C [address] [place] [address] 248772 Referring Physician Family Medicine 04/22/20 Hans Cannon MD [address] [place] [address] Resident Pulmonary Disease 04/22/20 Mitra Kendall, ATTORNEY LAW CLERK Lead Real Estate Accountant Primary Care - CC 01/08/1901/12 Burt Jovel MD Internal Medicine 05/08/20 12/13/23 Estella Hassan, [facility] 30[address] [place] [address] Pharmacist Pharmacist 05/26/20 Reji Chavez MD [address] [place] [phone] Assigned Heart and Vascular Provider 05/18/20 10/30/21 Elaina Moreno MD [address] [place] [address] Assigned Surgical Provider 05/18/20 11/19/22 Elaina Moreno MD [address] [place] [address] Cardiovascular & Thoracic Surgery 08/06/20 Kelsi Hassan MD [address] [place] [address] Assigned Pulmonology Provider 06/28/21 02/05/22 John Webb MD [address] [address] Cardiovascular Disease 08/25/21 John Webb MD [address] [place] [address] Cardiovascular Disease 08/25/21 Estella Hassan, [facility] 30[address] [place] [address] Assigned MTM Pharmacist 09/05/21 Nav Hughes MD [address] [place] [address] Assigned Heart and Vascular Provider 10/31/21 09/03/23 Cassandra Mendoza MD ORTHOPAEDIC SURGERY [address] [address] Assigned Musculoskeletal Provider 10/31/21 08/13/22 Estella Hassan, [facility] [address] [place] [address] Assigned MTM Pharmacist 12/09/21 Mitra Kendall, [facility] Lead Real Estate Accountant Primary Care - CC 01/26/2210/28 Lindsay Carey OD 3305 [facility] [place] [address] Ophthalmology 01/29/22 Ravi Brownlee MD 420 [facility] 276 [place] [address] Assigned Pulmonology Provider 02/06/22 09/03/23 Arabella Fishman MA Financial Resource Worker 02/22/22 02/23/22 Richard Kam MD 500 [place] [address] Assigned Musculoskeletal Provider 08/14/22 Marisol Patel, [facility] 1440 [facility] [place] [place] [phone] Pharmacist Pharmacist 11/22/22 01/09/23 [place] [address] BC PENA, [address] [address] Assigned Neuroscience Provider 01/01/23 12/03/24 Rosemarie Mcdowell, RN Live Ammunition Inspector Diabetes Education 03/17/23 Ravi Brownlee MD [address] [place] [address] Assigned Heart and Vascular Provider 09/04/23 01/03/24 Mitra Kendall, [facility] Lead Real Estate Accountant Primary Care - CC 12/12/23 Lizet Mann PA-C [address] [place] [address] Assigned Cancer Care Provider 01/04/24 Ravi Brownlee MD [address] [place] [address] Assigned Pulmonology Provider 01/04/24 Nav Hughes MD 6405 [facility]34 [place] [address] Assigned Heart and Vascular Provider 01/04/24 05/05/24 Manuel Ahn OD 6341 [facility] [place] [address] Treasury Manager 01/05/24 Arabella Fishman MA Financial Resource Worker 01/06/24 03/19/24 Melvin Thalia [facility] [address] [place] [address] Pharmacist Pharmacy 01/26/24 Gaurav Valenzuela APRN CLUBHOUSE MANAGER [address] [facility] 106 [place], [place] 100344 Assigned Sleep Provider 02/04/24 Manuel Ahn OD 6341 [place], [place] 538622 Assigned Surgical Provider 02/04/24 06/02/24 Debbie Mann MD 1600 [facility] 200 [place] [address] Cardiovascular Disease 02/24/24 Hakeem Chacko MBBS 2945 [place] [address] Assigned Rheumatology Provider 04/05/24 Debbie Mann MD 1600 [facility] 200 [place] [address] Assigned Heart and Vascular Provider 05/06/24 Timothy Tejada MD 6341 [place] [phone] Ophthalmology 05/29/24 Timothy Tejada MD [address]341 [place] [address] Assigned Surgical Provider 06/03/24 Elsie Roberts APRN CLUBHOUSE MANAGER 1600 [facility] [place] [address] [place] [place] [address] Nurse Practitioner Pain Medicine 10/16/24 Cristy Morton MD [address] [place] [address] Assigned Pediatric Specialist Provider 11/03/24 Georgie Anguiano PA-C [address] [address] Assigned Neuroscience Provider 12/04/24 documented as of this encounter
--- OUTSIDE RECORDS SUMMARY | 2024-12-06 00:34 | XMS_ITS | Encounter Summary ---
Author Organization [facility] Address [address] [place] [address] Care Team Providers Care Synthetic Staple Extruder Name Role Phone Va Glez MD Primary Care Provider Va Glez MD Unavailable Kerry Bernal RN Unavailable [phone] Ravi Barillas DPM Unavailable [phone] Christy Campuzano PA-C Unavailable [phone] Hans Cannon MD Unavailable Mitra Kendall DAIRY HUSBANDRY WORKER Unavailable Burt Jovel MD Unavailable [phone] Estella Hassan [facility] Unavailable Reji Chavez MD Unavailable [phone] Josh Cordero MD, Madhuri Unavailable [phone] Josh Cordero MD, Madhuri Unavailable [phone] Kelsi Hassan MD Unavailable [phone] John Webb MD Unavailable John Webb MD Unavailable Estella Hassan [facility] Unavailable Nav Hughes MD Unavailable [phone] Cassandra Mendoza MD Unavailable Estella Hassan RPH Unavailable Mitra Kendall DAIRY HUSBANDRY WORKER Unavailable Aurelio Lindsay Kenzie OD Unavailable Ravi Brownlee MD Unavailable Kye Arabella MA Unavailable [phone] Richard Kam MD Unavailable Marisol Patel RPH Unavailable Gaby Vila DO Unavailable Rosemarie Mcdowell RN Unavailable Ravi Brownlee MD Unavailable Mitra Kendall DAIRY HUSBANDRY WORKER Unavailable Lizet MannC Unavailable Ravi Brownlee MD Unavailable Nav Hughes MD Unavailable [phone] Manuel Ahn OD Unavailable Kye Arabella MA Unavailable [phone] Thalia Charles RP Unavailable Gaurav Valenzuela APRN WAFER POLISHING LEAD WORKER Unavailable Manuel Ahn OD Unavailable Debbie Mann MD Unavailable Hakeem Chacko Unavailable Debbie Mann MD Unavailable Timothy Tejada MD Unavailable Timothy Tejada MD Unavailable Elsie Roberts APRN WAFER POLISHING LEAD WORKER Unavailable + Cristy Morton MD Unavailable Georgie Anguiano PA-C Unavailable Encounter Details Date Type Department Care Team (Late st Contact Info) Description 07/08/2020 MyC Medical Advice [address] [address] Estella Hassan, [facility] [address] [place] [address] Social History Tobacco Use Types Packs/Day Years [...] Answer Date Recorded PHQ-2 Score 0 06/05/2020 [facility] [place] of Occupat ional Health - Occupational Stress [...] on file 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 Rehabilitation Services [address] [place] [phone] Shanta Cooper PT 12/14/2024 11:20 AM CDT Office Visit [facility] [address] [facility] [place] [phone] Lizet Mann PA-C [address] [facility] [place] [address] 12/17/2024 2:10 PM CDT Office Visit [facility] 9[address] [facility] 4th [place] [phone] Richard Kam MD [address] [place] [address] 12/19/2024 8:20 AM CDT Therapy Visit [address] [address] Shanta Cooper, PT 12/24/2024 5:00 PM CDT Therapy Visit [address] [address] Pattie Casillas, PT 12/25/2024 10:20 AM CDT Therapy Visit [address] [address] Shanta Cooper, PT 01/03/2025 1:00 PM CDT Office Visit [address] [phone] Estella Hassan, [facility] [address] [place] [address] 01/03/2025 1:30 PM CDT Office Visit [address] [phone] Va Glez MD [address] [place] [address] [id number] 01/08/2025 1:15 PM CDT Office Visit [address] [phone] Hakeem Chacko MBBS [address] [place] [address] Scheduled Procedures Name Priority Associated Diagnoses Date/Ti me INJECTION, EPIDURAL, TRANSFO RAMINAL APPROACH Cervical radiculitis RELEASE, CARPAL TUNNEL, ENDOSCOPIC Right carpal tunnel syndrome documented as of this encounter Visit Diagnoses Not on filedocumented in this encounter Additional Health Concerns Infection Onset Date Last Indicated Resolved Time Rule Out COVID-19 06/22/2021 06/22/2021 06/23/2021 8:58 PM CDT Rule Out COVID-19 01/22/2022 01/22/2022 01/24/2022 1:05 PM GENERATOR REPAIRER Rule Out COVID-19 01/25/2022 01/25/2022 01/25/2022 5:21 AM GENERATOR REPAIRER Influenza 01/25/2022 01/25/2022 02/01/2022 11:4 1 PM GENERATOR REPAIRER Rule Out COVID-19 07/29/2022 07/29/2022 07/31/2022 11:17 AM CDT Rule Out COVID-19 03/23/2023 03/23/2023 03/23/2023 6:30 PM GENERATOR REPAIRER COVID-19 03/23/2023 03/23/2023 04/13/2023 11:4 0 PM GENERATOR REPAIRER Rule Out COVID-19 06/05/2023 06/05/2023 06/05/2023 5:53 PM CDT Rule Out COVID-19 11/06/2023 11/06/2023 11/06/2023 11:05 PM CDT Rule Out COVID-19 11/20/2023 11/20/2023 11/20/2023 6:43 PM CDT Rule Out COVID-19 12/27/2023 12/27/2023 12/29/2023 1:37 PM CDT Rule Out COVID-19 03/01/2024 03/01/2024 03/01/2024 1:11 PM GENERATOR REPAIRER Rule Out COVID-19 07/18/2024 07/18/2024 07/19/2024 5:52 PM CDT Rule Out COVID-19 10/17/2024 10/17/2024 10/17/2024 11:23 PM CDT Rule Out C-difficile 11/04/2024 11/04/2024 025 1:55 AM CDT Assessment Noted Time PHQ-9 Depression Total Score: 2 06/06/19 21 12:47 PM CDT documented as of this encounter Care Teams Synthetic Staple Extruder Relationship Specialty [place] [address] [place] [address] PCP - General Family Practice 07/11/14 [place] [address] [place] [address] Assigned PCP 12/16/11 Kerry Bernal RN Personal Advocate & Liaison (PAL) 01/08/19 07/10/23 Ravi Barillas DPM [id number] [place] [address] [address] [place] [address] Assigned Musculoskeletal Provider 03/23/20 10/30/21 Christy Campuzano PA-C [address] [place] [address] [id number] Referring Physician Family Medicine 04/22/20 Hans Cannon MD [address] [place] [address] Resident Pulmonary Disease 04/22/20 Mitra Kendall, DAIRY HUSBANDRY WORKER Lead Glaze Maker Primary Care - CC 01/08/1901/12 Burt Jovel MD Internal Medicine 05/08/20 12/13/23 Estella Hassan, [facility] [address] [place] [address] Pharmacist Pharmacist 05/26/20 Reji Chavez MD [address] [facility] [address] [place] [phone] Assigned Heart and Vascular Provider 05/18/20 10/30/21 Elaina Moreno MD [address] [place] [address] Assigned Surgical Provider 05/18/20 11/19/22 Elaina Moreno MD [address] [place] [address] Cardiovascular & Thoracic Surgery 08/06/20 Kelsi Hassan MD [address] [place] [address] Assigned Pulmonology Provider 06/28/21 02/05/22 John Webb MD [address] [address] Cardiovascular Disease 08/25/21 John Webb MD [address] 289185 Cardiovascular Disease 08/25/21 Estella Hassan, [facility] [address] [place] [address] Assigned MTM Pharmacist 09/05/21 Nav Hughes MD [address] [place] [address] Assigned Heart and Vascular Provider 10/31/21 09/03/23 Cassandra Mendoza MD ORTHOPAEDIC SURGERY [address] [address] Assigned Musculoskeletal Provider 10/31/21 08/13/22 Estella Hassan, [facility] [address] [place] [address] Assigned MTM Pharmacist 12/09/21 Mitra Kendall, [facility] Lead Glaze Maker Primary Care - CC 01/26/2210/28 Lindsay Carey OD [address] [facility] [place] [address] Ophthalmology 01/29/22 Ravi Brownlee MD 420 [facility] [address] [place] [address] Assigned Pulmonology Provider 02/06/22 09/03/23 Arabella Fishman MA Financial Resource Worker 02/22/22 02/23/22 Richard Kam MD 500 [place] [address] Assigned Musculoskeletal Provider 08/14/22 Marisol Patel, [facility] [address] [place] [place] [address] Pharmacist Pharmacist 11/22/22 01/09/23 [place] [address] [place], [address] [address] Assigned Neuroscience Provider 01/01/23 12/03/24 Rosemarie Mcdowell, RN Malted Milk Supervisor Diabetes Education 03/17/23 Ravi Brownlee MD [address] [place] [address] [id number] Assigned Heart and Vascular Provider 09/04/23 01/03/24 Mitra Kendall, DAIRY HUSBANDRY WORKER Lead Glaze Maker Primary Care - CC 12/12/23 Lizet Mann PA-C [address] [place], [place] [address] [address] Assigned Cancer Care Provider 01/04/24 Ravi Brownlee MD [address] [place] [address] Assigned Pulmonology Provider 01/04/24 Nav Hughes MD [address] [place] [address] [place] [place] [address] Assigned Heart and Vascular Provider 01/04/24 05/05/24 Manuel Ahn OD 6[address] [facility] [place] [place] [address] Canal Superintendent 01/05/24 Arabella Fishman MA Financial Resource Worker 01/06/24 03/19/24 Thalia Charles [facility] [address] [place] [address] Pharmacist Pharmacy 01/26/24 Gaurav Valenzuela APRN WAFER POLISHING LEAD WORKER [address] [facility] 106 [place], [place] 356054 Assigned Sleep Provider 02/04/24 Manuel Ahn OD [address]341 [place], [place] 614072 Assigned Surgical Provider 02/04/24 06/02/24 Debbie Mann MD 1600 [facility] 200 [place] [address] Cardiovascular Disease 02/24/24 Hakeem Chacko MBBS 29[address] [place] [address] Assigned Rheumatology Provider 04/05/24 Debbie Mann MD 1600 [facility] 200 [place] [address] Assigned Heart and Vascular Provider 05/06/24 Timothy Tejada MD 6341 [place] [phone] Ophthalmology 05/29/24 Timothy Tejada MD [address] [place] [address] Assigned Surgical Provider 06/03/24 Elsie Roberts APRN WAFER POLISHING LEAD WORKER 1600 [facility] [place] [address] [place] [place] [address] Nurse Practitioner Pain Medicine 10/16/24 Cristy Morton MD 1440 [facility] [place] [address] Assigned Pediatric Specialist Provider 11/03/24 Georgie Anguiano PA-C [address] [address] Assigned Neuroscience Provider 12/04/24 documented as of this encounter
--- OUTSIDE RECORDS SUMMARY | 2024-12-06 00:34 | XMS_ITS | Encounter Summary ---
Author Organization [facility] Address [address] [place] [address] Care Team Providers Care Oceanography Professor Name Role Phone Va Glez MD Primary Care Provider [phone] Va Glez MD Unavailable Kerry Bernal RN Unavailable [phone] Ravi Barillas DPM Unavailable [phone] Christy Campuzano PA-C Unavailable [phone] Hans Cannon MD Unavailable Mitra Kendall INSPECTOR CANV[employer] PRODUCTS Unavailable Burt Jovel MD Unavailable Estella Hasasn [facility] Unavailable Reji Chavez MD Unavailable [phone] Josh Cordero MD, Madhuri Unavailable [phone] Josh Cordero MD, Madhuri Unavailable [phone] Kelsi Hassan MD Unavailable [phone] John Webb MD Unavailable John Webb MD Unavailable [phone] Estella Hassan [facility] Unavailable Nav Hughes MD Unavailable [phone] Cassandra Mendoza MD Unavailable Estella Hassan RPH Unavailable Mitra Kendall INSPECTOR CANV[employer] PRODUCTS Unavailable Aurelio Lindsay Kenzie OD Unavailable Ravi Brownlee MD Unavailable Kye Arabella MA Unavailable [phone] Richard Kam MD Unavailable Marisol Patel RPH Unavailable Gaby Vila DO Unavailable Rosemarie Mcdowell RN Unavailable Ravi Brownlee MD Unavailable Mitra Kendall INSPECTOR CANV[employer] PRODUCTS Unavailable Lizet MannC Unavailable Ravi Brownlee MD Unavailable Nav Hughes MD Unavailable [phone] Manuel Ahn OD Unavailable Kye Arabella MA Unavailable [phone] Thalia Charles RP Unavailable Gaurav Valenzuela APRN SAMPLE SAWYER Unavailable Manuel Ahn OD Unavailable Debbie Mann MD Unavailable Hakeem Chacko Unavailable Debbie Mann MD Unavailable Timothy Tejada MD Unavailable Timothy Tejada MD Unavailable Elsie Roberts APRN SAMPLE SAWYER Unavailable + Cristy Morton MD Unavailable Georgie Anguiano PA-C Unavailable [phone] Encounter Details Date Type Department Care Team (Late st Contact Info) Description 07/03/2020 MyC Medical Advice [facility] Cancer [address] [address] Elaina Moreno MD [address] [place] [address] Social History Tobacco Use Types Packs/Day [...] Answer Date Recorded PHQ-2 Score 0 06/05/2020 [facility] [place] of Occupat ional Health - Occupational Stress [...] on file 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 [address] [facility] [place] [phone] Lizet Mann PA-C [address] [facility] [place] [address] 12/17/2024 2:10 PM CDT Office Visit [facility] Orthopedic [facility] 909 [facility] 4th [place] [address] Richard Kam MD [address] [place] [address] 12/19/2024 8:20 AM CDT Therapy Visit [address] [address] Shanta Cooper, PT 12/24/2024 5:00 PM CDT Therapy Visit [address] [address] Pattie Casillas, PT 12/25/2024 10:20 AM CDT Therapy Visit [address] [address] Shanta Cooper, PT 01/03/2025 1:00 PM CDT Office Visit [address] [phone] Estella Hassan, [facility] [address] [place] [address] 01/03/2025 1:30 PM CDT Office Visit [address] [phone] Va Glez MD [address] [place] [address] [id number] 01/08/2025 1:15 PM CDT Office Visit [address] [phone] Hakeem Chacko MBBS [address] [place] [address] Scheduled Procedures Name Priority Associated Diagnoses Date/Ti me INJECTION, EPIDURAL, TRANSFO RAMINAL APPROACH Cervical radiculitis RELEASE, CARPAL TUNNEL, ENDOSCOPIC Right carpal tunnel syndrome documented as of this encounter Visit Diagnoses Not on filedocumented in this encounter Additional Health Concerns Infection Onset Date Last Indicated Resolved Time Rule Out COVID-19 06/22/2021 06/22/2021 06/23/2021 8:58 PM CDT Rule Out COVID-19 01/22/2022 01/22/2022 01/24/2022 1:05 PM CAR AND YARD SUPERVISOR Rule Out COVID-19 01/25/2022 01/25/2022 01/25/2022 5:21 AM CAR AND YARD SUPERVISOR Influenza 01/25/2022 01/25/2022 02/01/2022 11:4 1 PM CAR AND YARD SUPERVISOR Rule Out COVID-19 07/29/2022 07/29/2022 07/31/2022 11:17 AM CDT Rule Out COVID-19 03/23/2023 03/23/2023 03/23/2023 6:30 PM CAR AND YARD SUPERVISOR COVID-19 03/23/2023 03/23/2023 04/13/2023 11:4 0 PM CAR AND YARD SUPERVISOR Rule Out COVID-19 06/05/2023 06/05/2023 06/05/2023 5:53 PM CDT Rule Out COVID-19 11/06/2023 11/06/2023 11/06/2023 11:05 PM CDT Rule Out COVID-19 11/20/2023 11/20/2023 11/20/2023 6:43 PM CDT Rule Out COVID-19 12/27/2023 12/27/2023 12/29/2023 1:37 PM CDT Rule Out COVID-19 03/01/2024 03/01/2024 03/01/2024 1:11 PM CAR AND YARD SUPERVISOR Rule Out COVID-19 07/18/2024 07/18/2024 07/19/2024 5:52 PM CDT Rule Out COVID-19 10/17/2024 10/17/2024 10/17/2024 11:23 PM CDT Rule Out C-difficile 11/04/2024 11/04/2024 025 1:55 AM CDT Assessment Noted Time PHQ-9 Depression Total Score: 2 06/06/19 21 12:47 PM CDT documented as of this encounter Care Teams Oceanography Professor Relationship Specialty [place] [address] [place] [address] PCP - General Family Practice 07/11/14 [place] [address] [place] [address] Assigned PCP 12/16/11 Kerry Bernal RN Personal Advocate & Liaison (PAL) 01/08/19 07/10/23 Ravi Barillas DPM [address] [facility] [address] [place] [address] Assigned Musculoskeletal Provider 03/23/20 10/30/21 Christy Campuzano PA-C [address] [place] [address] Referring Physician Family Medicine 04/22/20 Hans Cannon MD [address] [place] [address] Resident Pulmonary Disease 04/22/20 Mitra Kendall, INSPECTOR CANVAS PRODUCTS Lead Data Power Consultant Primary Care - CC 01/08/1901/12 Burt Jovel MD Internal Medicine 05/08/20 12/13/23 Estella Hassan, [facility] [address] [place] [address] Pharmacist Pharmacist 05/26/20 Reji Chavez MD [address] [place] [phone] Assigned Heart and Vascular Provider 05/18/20 10/30/21 Elaina Moreno MD 909 [place], [place] [address] Assigned Surgical Provider 05/18/20 11/19/22 Elaina Moreno MD [address] [place] [address] 042945 Cardiovascular & Thoracic Surgery 08/06/20 Kelsi Hassan MD [address] [place] [address] Assigned Pulmonology Provider 06/28/21 02/05/22 John Webb MD [address] [address] Cardiovascular Disease 08/25/21 John Webb MD [address] [id number] Cardiovascular Disease 08/25/21 Estella Hassan, [facility] [address] [place] [address] Assigned MTM Pharmacist 09/05/21 Nav Hughes MD [address] [place] [address] Assigned Heart and Vascular Provider 10/31/21 09/03/23 Cassandra Mendoza MD ORTHOPAEDIC SURGERY [address] [address] Assigned Musculoskeletal Provider 10/31/21 08/13/22 Estella Hassan, [facility] [address] [place] [address] Assigned MTM Pharmacist 12/09/21 Mitra Kendall, [facility] Lead Data Power Consultant Primary Care - CC 01/26/2210/28 Lindsay Carey OD 3305 [facility] [place] [address] Ophthalmology 01/29/22 Ravi Brownlee MD 420 [facility] 276 [place] [address] Assigned Pulmonology Provider 02/06/22 09/03/23 Arabella Fishman MA Financial Resource Worker 02/22/22 02/23/22 Richard Kam MD 500 [place] [address] Assigned Musculoskeletal Provider 08/14/22 Marisol Patel, [facility] [address] [place] [address] Pharmacist Pharmacist 11/22/22 01/09/23 [place] [address] [place] PENA, [address] 854457 Assigned Neuroscience Provider 01/01/23 12/03/24 Rosemarie Mcdowell, RN Oil Well Directional Surveyor Diabetes Education 03/17/23 Ravi Brownlee MD [address] [place] [address] [phone] Assigned Heart and Vascular Provider 09/04/23 01/03/24 Mitra Kendall, INSPECTOR [employer]ODU[employer] Lead Data Power Consultant Primary Care - CC 12/12/23 Lizet Mann PA-C [address] [place] [address] Assigned Cancer Care Provider 01/04/24 Ravi Brownlee MD [address] [place] [address] Assigned Pulmonology Provider 01/04/24 Nav Hughes MD [address] [place] [address] [address] [place] [address] Assigned Heart and Vascular Provider 01/04/24 05/05/24 Manuel Ahn OD 6341 [facility] [place] [address] Retail Account Executive 01/05/24 Arabella Fishman MA Financial Resource Worker 01/06/24 03/19/24 Thalia Charles [facility] [address] [place] [address] Pharmacist Pharmacy 01/26/24 Gaurav Valenzuela APRN SAMPLE SAWYER 606 [facility] 106 [place] [address] Assigned Sleep Provider 02/04/24 Manuel Ahn OD 6341 [place], [place] 501942 Assigned Surgical Provider 02/04/24 06/02/24 Debbie Mann MD 1600 [facility] 200 [place] [address] Cardiovascular Disease 02/24/24 Hakeem Chacko MBBS 2945 [place] [address] Assigned Rheumatology Provider 04/05/24 Debbie Mann MD 1600 [facility] 200 [place] [address] Assigned Heart and Vascular Provider 05/06/24 Timothy Tejada MD 6341 [place] [phone] Ophthalmology 05/29/24 Timothy Tejada MD 6341 [place] [address] Assigned Surgical Provider 06/03/24 Elsie Roberts APRN SAMPLE SAWYER 1600 [facility] [place] [address] [place] [address] Nurse Practitioner Pain Medicine 10/16/24 Cristy Morton MD 1440 [facility] [place] [address] Assigned Pediatric Specialist Provider 11/03/24 Georgie Anguiano PA-C [address] [address] Assigned Neuroscience Provider 12/04/24 documented as of this encounter
--- OUTSIDE RECORDS SUMMARY | 2024-12-06 00:34 | XMS_ITS | Encounter Summary ---
Author Organization [place] Address [address] [place] [address] Care Team Providers Care Planer Feeder Name Role Phone Va Glez MD Primary Care Provider [phone] Va Glez MD Unavailable Christy CampuzanoC Unavailable [phone] Hans Cannon MD Unavailable Estella Hassan [facility] Unavailable [phone] Josh Cordero MD, Madhuri Unavailable [phone] John Wbeb MD Unavailable [phone] John Webb MD Unavailable Estella Hassan [facility] Unavailable Lindsay Carey OD Unavailable Richard Kam MD Unavailable Gaby Vila DO Unavailable Rosemarie Mcdowell RN Unavailable [phone] Mitra Kendall MECHANICAL DESIGN DRAFTER Unavailable [phone] Lizet Mann PA-C Unavailable Ravi Brownlee MD Unavailable Manuel Ahn OD Unavailable Thalia Charles [facility] Unavailable [phone] Nicolas Gaurav Bell PICKING SUPERVISOR CHEMICAL DETECTION EXPERT Unavailable [phone] Debbie Mann MD Unavailable [phone] Hakeem Chacko MB Unavailable Debbie Mann MD Unavailable [phone] Timothy Tejada MD Unavailable [phone] Timothy Tejada MD Unavailable [phone] Elsie Roberts PICKING SUPERVISOR CHEMICAL DETECTION EXPERT Unavailable + Cristy Morton MD Unavailable [phone] Georgie Anguiano PA-C Unavailable [phone] Encounter Details Date Type Department Care Team (Late st Contact Info) Description 10/31/2024 MyC Medical Advice [facility] [address] [place] [address] Monique Chau LPN Social History Tobacco Use Types Packs/Day Years [...] Answer Date Recorded PHQ-2 Score 6 11/01/2024 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 Gender Identity Not on file Sexual Orientation Not on file Occupation Industry Job Start Date Job End Date Not on file Not on file Not on file Not on file documented as of this encounter Plan of Treatment Upcoming Encounters Date Type Department Care Team (Late st Contact Info) Description 12/11/2024 2:10 PM CDT Therapy Visit [place] [address] [place] [address] Shanta Cooper, PT 12/14/2024 11:20 AM CDT Office Visit [facility] [phone] [place] [phone] Lizet Mann PA-C [address] [place] [address] 12/17/2024 2:10 PM CDT Office Visit [facility] [address] [place] [phone] Richard Kam MD [address] [place] [address] 12/19/2024 8:20 AM CDT Therapy Visit [place] [address] [place] [address] Shanta Cooper, PT 12/24/2024 5:00 PM CDT Therapy Visit [place] [address] [place] [phone] Pattie Casillas, PT 12/25/2024 10:20 AM CDT Therapy Visit [place] [address] [place] [address] Shanta Cooper, PT 01/03/2025 1:00 PM CDT Office Visit [facility] [address] [place] [phone] Estella Hassan, [facility] [address] [place] [address] 01/03/2025 1:30 PM CDT Office Visit [facility] [address] [place] [phone] [place] [address] [place], [place] [phone] 01/08/2025 1:15 PM CDT Office Visit [facility] 2945 [facility] 200 [place] [address] Hakeem Chacko MBBS [address] [place] [address] Scheduled Procedures Name Priority Associated Diagnoses Date/Ti [...] job and will access resources that the [employer] offers. . Sarted new job 4. [...] by household income. 2. I will contact [employer] [facility] to ask about medicare plans and if there are saving programs I qualify for by by calling [phone]. 3. I will see if I am eligible for unemployment after losing my job. I will call [phone] to ask for assistance with unemployment application. 4. I will apply for jobs. I will work with [facility] in finding a job ([employer]ower[employer].) 5. I will access [employer] and ask about financial resources (such as [...] I will continue working with therapist at [facility]. 2. I will establish with Psychiatry. Planning to schedule with Ronnie. 3. I will meet with [facility] construction ironworker helper Manujla Gresham. 4. I will look in to attending an IOP program. I will discuss with my [facility] therapist and number provided for [facility] Behavioral Access - [phone] to schedule assessment fr IOP program. 5. I will go to [facility] if I have concerning mental health symptoms. 6. I will access [facility] if needed by calling [phone]. 7. I will consider calling [facility] Adult Mental health intake at [phone]. documented as of this encounter Visit Diagnoses [...] documented as of this encounter Care Teams Planer Feeder Relationship Specialty [place] [address] [place] [address] PCP - General Family Practice 07/11/14 [place] [address] [place] [address] Assigned PCP 12/16/11 Christy Campuzano PA-C [address] [place] [address] [id number] Referring Physician Family Medicine 04/22/20 [place] [address] [place] [address] 259482 Resident Pulmonary Disease 04/22/20 Estella Hassan, [facility] 30[address] [facility] [address] Pharmacist Pharmacist 05/26/20 Elaina Moreno MD 909 [place] [address] Cardiovascular & Thoracic Surgery 08/06/20 John Webb MD [address] [address] Cardiovascular Disease 08/25/21 John Webb MD [address] [address] Cardiovascular Disease 08/25/21 Estella Hassan, [facility] [address] [place] [address] Assigned MTM Pharmacist 12/09/21 [place] [address] [place] [address] [place] [address] Ophthalmology 01/29/22 Richard Kam MD [address] [place] [address]885 Assigned Musculoskeletal Provider 08/14/22 [place] [address] 415277 Assigned Neuroscience Provider 01/01/23 12/03/24 Rosemarie Mcdowell, RN Physical Therapy Coordinator Diabetes Education 03/17/23 Mitra Kendall, MECHANICAL DESIGN DRAFTER Lead Sanding Machine Tender [facility] - CC 12/12/23 Lizet Mann PA-C [address] [facility] [place] [address] Assigned Cancer Care Provider 01/04/24 Ravi Brownlee MD [address] [place] [address] Assigned Pulmonology Provider 01/04/24 Manuel Ahn OD [address] [place] [address] University Services Program Associate 01/05/24 Thalia Charles [facility] [address] [place], [place] [phone] Pharmacist Pharmacy 01/26/24 Gaurav Valenzuela APRN CHEMICAL DETECTION EXPERT [address] [facility] 106 [place] [address] Assigned Sleep Provider 02/04/24 Debbie Mann MD 1600 [facility] 200 [place] [address] Cardiovascular Disease 02/24/24 Hakeem Chacko MBBS [address]45 [place], [place] [phone] Assigned Rheumatology Provider 04/05/24 Debbie Mann MD 1600 [facility] 200 [place], [place] [phone] Assigned Heart and Vascular Provider 05/06/24 Timothy Tejada MD 6341 [place] [phone] Ophthalmology 05/29/24 Timothy Tejada MD [address] [place] [phone] Assigned Surgical Provider 06/03/24 Elsie Roberts APRN CHEMICAL DETECTION EXPERT 1600 [facility] [address] [address] Nurse Practitioner Pain Medicine 10/16/24 Cristy Morton MD [facility]0 [facility] [address] [id number] Assigned Pediatric Specialist Provider 11/03/24 Georgie Anguiano PA-C [address] [id number] Assigned Neuroscience Provider 12/04/24 documented as of this encounter
--- OUTSIDE RECORDS SUMMARY | 2024-12-06 00:34 | XMS_ITS | Encounter Summary ---
Author Organization [place] Address [address] [place] [address] Care Team Providers Care Client Engagement Manager Name Role Phone Va Glez MD Primary Care Provider Va Glez MD Unavailable Christy CampuzanoC Unavailable [phone] Hans Cannon MD Unavailable Estella Hassan [facility] Unavailable [phone] Josh Cordero MD, Madhuri Unavailable [phone] John Webb MD Unavailable John Webb MD Unavailable [phone] Estella Hassan [facility] Unavailable Lindsay Carey OD Unavailable [phone] Richard Kam MD Unavailable Gaby Vila DO Unavailable Rosemarie Mcdowell RN Unavailable Mitra Kendall OUTSIDE RIGGER Unavailable [phone] Lizet Mann PA-C Unavailable [phone] Ravi Brownlee MD Unavailable [phone] Manuel Ahn OD Unavailable Thalia Charles [facility] Unavailable [phone] Gaurav Valenzuela [employer] DIVISION DIRECTOR TECHNICAL CABLE JOINTER Unavailable [phone] Debbie Mann MD Unavailable [phone] Hakeem Chacko MB Unavailable Debbie Mann MD Unavailable [phone] Timothy Tejada MD Unavailable [phone] Timothy Tejada MD Unavailable [phone] Elsie Roberts Jennifer [employer] DIVISION DIRECTOR TECHNICAL CABLE JOINTER Unavailable + Reason for Visit * Reason Onset Date Comments Appointment 10/31/2024 Follow up ED Encounter Details Date Type Department Care Team (Late st Contact Info) Description 10/31/[address] [address] [place] [id number] [place] [address] [phone] Appointment (Follow up ED ) Social History Tobacco Use Types Packs/Day [...] re latives? 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 Patient was seen today in their clinic. She states that patient had some wounds with no bandages after recent ER visitfor cellulitis. They are recommending patient follow up with PCP/lacquer coater today or tomorrow. Routing to PAM/SHERWIN- please call patient and schedule OV for today or tomorrow 11/01. Should be in person. Ally Tyson RN on 10/31/2024 at 1:29 PM documented in this encounter Plan of Treatment Upcoming Encounters Date Type Department Care Team (Late st Contact Info) Description 12/11/2024 2:10 PM CDT Therapy Visit [facility] [address] [place] [address] Shanta Cooper, PT 12/14/2024 11:20 AM CDT Office Visit [facility] [address] [place] [address] Lizet Mann PA-C [id number] [place], [place] [address] [place] [address] 12/17/2024 2:10 PM CDT Office Visit [facility] 909 [facility] 4th [place] [address] Richard Kam MD [address] [place] [address] 12/19/2024 8:20 AM CDT Therapy Visit [address] [address] Shanta Cooper, PT 12/24/2024 5:00 PM CDT Therapy Visit [address] [address] Pattie Casillas, PT 12/25/2024 10:20 AM CDT Therapy Visit [address] [address] Shanta Cooper, PT 01/03/2025 1:00 PM CDT Office Visit [address] [address] Estella Hassan, [facility] 3033 [place] [address] 01/03/2025 1:30 PM CDT Office Visit [address] [phone] Va Glez MD [address] [place] [address] [id number] 01/08/2025 1:15 PM CDT Office Visit [address] [place] [address] Hakeem Chacko MBBS [address] [place] [address] Scheduled Procedures Name Priority Associated Diagnoses Date/Ti [...] for health insurance by looking in to [employer] and talking with a FRW. Completed 3. I will look for a new job and will access resources that the [employer] offers. . Sarted new job 4. [...] by household income. 2. I will contact [employer] to ask about medicare plans and if there are saving programs I qualify for by by calling [phone]. 3. I will see if I am eligible for unemployment after losing my job. I will call [phone] to ask for assistance with unemployment application. 4. I will apply for jobs. I will work with [employer] in finding a job ([employer]ower[employer].) 5. I will access [employer] and ask about financial resources (such as [...] I will continue working with therapist at [facility]. 2. I will establish with Psychiatry. Planning to schedule with Ronnie. 3. I will meet with community sheet ironworker Manjula Gresham. 4. I will look in to attending an IOP program. I will discuss with my [facility] therapist and number provided for [facility] Behavioral Access - [phone] to schedule assessment fr IOP program. 5. I will go to [facility] if I have concerning mental health symptoms. 6. I will access [facility] Crisis if needed by calling [phone]. 7. I will consider calling [facility] Adult Mental health intake at [phone]. documented as of this encounter Visit Diagnoses [...] documented as of this encounter Care Teams Client Engagement Manager Relationship Specialty [place] [address] [place] [address] PCP - General Family Practice 07/11/14 [place] [address] [place] [address] Assigned PCP 12/16/11 Christy Campuzano PA-C [address] [place] [address] Referring Physician Family Medicine 04/22/20 [place] [address] [place] [address] Resident Pulmonary Disease 04/22/20 Estella Hassan, [facility] [address] [place] [address] Pharmacist Pharmacist 05/26/20 Elaina Moreno MD [address] [place] [address] Cardiovascular & Thoracic Surgery 08/06/20 John Webb MD [address] [place] [address] Cardiovascular Disease 08/25/21 John Webb MD [address] [place] 618[address] Cardiovascular Disease 08/25/21 Estella Hassan, [facility] [address] [place] [address] Assigned MTM Pharmacist 12/09/21 Lindsay Carey OD [address] [facility] [place] [address] Ophthalmology 01/29/22 Richard Kam MD [address] [place] [address] Assigned Musculoskeletal Provider 08/14/22 [place] [address] [place] , [facility] [address] [place] [address] Assigned Neuroscience Provider 01/01/23 12/03/24 Rosemarie Mcdowell, RN Evs Manager Diabetes Education 03/17/23 Mitra Kendall, OUTSIDE RIGGER Lead Manager [facility] - CC 12/12/23 Lizet Mann PA-C [address] [place], [place] 8[address] Assigned Cancer Care Provider 01/04/24 Ravi Brownlee MD 420 [facility] 276 [place], [place] [phone] Assigned Pulmonology Provider 01/04/24 Manuel Ahn OD 6341 [place], [place] 107082 [employer] 01/05/24 Thalia Charles RPH [address] [place], [place] [phone] Pharmacist Pharmacy 01/26/24 Gaurav Valenzuela APRN TECHNICAL CABLE JOINTER [address] [facility] 106 [place], [place] [address] Assigned Sleep Provider 02/04/24 Debbie Mann MD 1600 [facility] 200 [place], [place] [phone] Cardiovascular Disease 02/24/24 Hakeem Chacko MBBS [address] [place] [address] Assigned Rheumatology Provider 04/05/24 Debbie Mann MD 1600 [facility] 200 [place] [address] Assigned Heart and Vascular Provider 05/06/24 Timothy Tejada MD 6341 [place] [phone] Ophthalmology 05/29/24 Timothy Tejada MD [address] [place] [phone] Assigned Surgical Provider 06/03/24 Elsie Roberts APRN TECHNICAL CABLE JOINTER 1600 [facility] 101 [place] [address] Nurse Practitioner Pain Medicine 10/16/24 documented as of this encounter
--- OUTSIDE RECORDS SUMMARY | 2024-12-06 00:34 | XMS_ITS | Encounter Summary ---
Author Organization [facility] [facility] Address [address] [place] [address] Care Team Providers Care Appeals Analyst Name Role Phone Va Glez MD Primary Care Provider Va Glez MD Unavailable Kerry Bernal RN Unavailable Ravi Barillas DPM Unavailable [phone] Christy Campuzano PA-C Unavailable [phone] Hans Cannon MD Unavailable Mitra Kendall FISCAL SPECIALIST Unavailable Burt Jovel MD Unavailable Estella Hassan [facility] Unavailable [phone] Reji Chavez MD Unavailable [phone] Josh Cordero MD, Madhuri Unavailable [phone] Josh Cordero MD, Madhuri Unavailable [phone] Kelsi Hassan MD Unavailable [phone] John Webb MD Unavailable John Webb MD Unavailable [phone] Estella Hassan [facility] Unavailable Nav Hughes MD Unavailable [phone] Cassandra Mendoza MD Unavailable Estella Hassan RPH Unavailable Mitra Kendall FISCAL SPECIALIST Unavailable Aurelio Lindsay Kenzie OD Unavailable Ravi Brownlee MD Unavailable Kye Arabella MA Unavailable [phone] Richard Kam MD Unavailable Marisol Patel RPH Unavailable Gaby Vila DO Unavailable Rosemarie Mcdowell RN Unavailable Ravi Brownlee MD Unavailable Mitra Kendall FISCAL SPECIALIST Unavailable Lizet MannC Unavailable Ravi Brownlee MD Unavailable Nav Hughes MD Unavailable [phone] Manuel Ahn OD Unavailable Kye Arabella MA Unavailable [phone] Thalia Charles RP Unavailable Gaurav Valenzuela APRN SENIOR WATER/WASTEWATER ENGINEER Unavailable Manuel Ahn OD Unavailable Debbie Mann MD Unavailable Hakeem Chacko Unavailable Debbie Mann MD Unavailable Timothy Tejada MD Unavailable Timothy Tejada MD Unavailable Elsie Roberts APRN SENIOR WATER/WASTEWATER ENGINEER Unavailable + Cristy Morton MD Unavailable [phone] Georgie Anguiano PA-C Unavailable [phone] Encounter Details Date Type Department Care Team (Late st Contact Info) Description 07/01/2020 MyC Medical Advice [facility] [address] [address] Hans Cannon MD [address] [place], [place] [address] Social History Tobacco Use Types Packs/Day Years [...] Answer Date Recorded PHQ-2 Score 0 06/05/2020 [facility] [place] of Occupat ional Health - [...] 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 Gender Identity Not on file Sexual [...] Description 12/11/2024 2:10 PM CDT Therapy Visit [facility] [address] [place] [address] Shanta Cooper, MOIZ 12/14/2024 11:20 AM CDT Office Visit [facility] [address] [place] [phone] Lizet Mann PA-C [address] [address] [place] [address] 12/17/2024 2:10 PM CDT Office Visit [facility] 909 [facility] 4th [place] [address] Richard Kam MD [address] [place] [address] 12/19/2024 8:20 AM CDT Therapy Visit [address] [address] Shanta Cooper, PT 12/24/2024 5:00 PM CDT Therapy Visit [address] [address] Pattie Casillas, PT 12/25/2024 10:20 AM CDT Therapy Visit [address] [address] Shanta Cooper, PT 01/03/2025 1:00 PM CDT Office Visit [address] [address] Estella Hassan, [facility] [address] [place] [address] 01/03/2025 1:30 PM CDT Office Visit [address] [phone] [place] [id number] [place] [address] 01/08/2025 1:15 PM CDT Office Visit [address] [phone] Hakeem Chacko MBBS [address] [place] [address] [place] [address] Scheduled Procedures Name Priority Associated Diagnoses Date/Ti me INJECTION, EPIDURAL, TRANSFO RAMINAL APPROACH Cervical radiculitis RELEASE, CARPAL TUNNEL, ENDOSCOPIC Right carpal tunnel syndrome documented as of this encounter Visit Diagnoses Not on filedocumented in this encounter Additional Health Concerns Infection Onset Date Last Indicated Resolved Time Rule Out COVID-19 06/22/2021 06/22/2021 06/23/2021 8:58 PM CDT Rule Out COVID-19 01/22/2022 01/22/2022 01/24/2022 1:05 PM 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 Rule Out COVID-19 01/25/2022 01/25/2022 01/25/2022 5:21 AM 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 Influenza 01/25/2022 01/25/2022 02/01/2022 11:4 1 PM 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 Rule Out COVID-19 07/29/2022 07/29/2022 07/31/2022 11:17 AM CDT Rule Out COVID-19 03/23/2023 03/23/2023 03/23/2023 6:30 PM 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 COVID-19 03/23/2023 03/23/2023 04/13/2023 11:4 0 PM 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 Rule Out COVID-19 06/05/2023 06/05/2023 06/05/2023 5:53 PM CDT Rule Out COVID-19 11/06/2023 11/06/2023 11/06/2023 11:05 PM CDT Rule Out COVID-19 11/20/2023 11/20/2023 11/20/2023 6:43 PM CDT Rule Out COVID-19 12/27/2023 12/27/2023 12/29/2023 1:37 PM CDT Rule Out COVID-19 03/01/2024 03/01/2024 03/01/2024 1:11 PM 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 Rule Out COVID-19 07/18/2024 07/18/2024 07/19/2024 5:52 PM CDT Rule Out COVID-19 10/17/2024 10/17/2024 10/17/2024 11:23 PM CDT Rule Out C-difficile 11/04/2024 11/04/2024 025 1:55 AM CDT Assessment Noted Time PHQ-9 Depression Total Score: 2 06/06/19 21 12:47 PM CDT documented as of this encounter Care Teams Appeals Analyst Relationship Specialty [place] [address] [place] [address] PCP - General Family Practice 07/11/14 [place] [address] [place] [address] Assigned PCP 12/16/11 Kerry Bernal RN Personal Advocate & Liaison (PAL) 01/08/19 07/10/23 Ravi Barillas DPM [address] [address] Assigned Musculoskeletal Provider 03/23/20 10/30/21 Christy Campuzano PA-C [address] [place] [address] 655232 Referring Physician Family Medicine 04/22/20 Hans Cannon MD [address] [place] [address] Resident Pulmonary Disease 04/22/20 Mitra Kendall, FISCAL SPECIALIST Lead General Farmworker Primary Care - CC 01/08/1901/12 Burt Jovel MD Internal Medicine 05/08/20 12/13/23 Estella Hassan, [facility] [address] [place] [address] Pharmacist Pharmacist 05/26/20 Reji Chavez MD 6405 [facility] [address] [place] [address] Assigned Heart and Vascular Provider 05/18/20 10/30/21 Elaina Moreno MD [address] [place] [address] [phone] Assigned Surgical Provider 05/18/20 11/19/22 Elaina Moreno MD [address] [place] [address] 826435 Cardiovascular & Thoracic Surgery 08/06/20 Kelsi Hassan MD [address] [facility] [place] [place] [address] Assigned Pulmonology Provider 06/28/21 02/05/22 John Webb MD [address] 437255 Cardiovascular Disease 08/25/21 John Webb MD [address] 841005 Cardiovascular Disease 08/25/21 Estella Hassan, [facility] [address] [place] [address] Assigned MTM Pharmacist 09/05/21 Nav Hughes MD [address] [place] [address] Assigned Heart and Vascular Provider 10/31/21 09/03/23 Cassandra Mendoza MD ORTHOPAEDIC SURGERY [facility] [address] [address] Assigned Musculoskeletal Provider 10/31/21 08/13/22 Estella Hassan, [facility] [address] [place] [address] Assigned MTM Pharmacist 12/09/21 Mitra Kendall, [facility] Lead General Farmworker Primary Care - CC 01/26/2210/28 Lindsay Carey OD [facility]5 [facility] [place] [place] [address] Ophthalmology 01/29/22 Ravi Brownlee MD [address] 136335 Assigned Pulmonology Provider 02/06/22 09/03/23 Arabella Fishman MA Financial Resource Worker 02/22/22 02/23/22 Richard Kam MD 500 [place], [place] 028225 Assigned Musculoskeletal Provider 08/14/22 Marisol Patel, [facility] [address] [id number] Pharmacist Pharmacist 11/22/22 01/09/23 [place] [address] [place] PENA, [address] 177277 Assigned Neuroscience Provider 01/01/23 12/03/24 Rosemarie Mcdowell, RN Dynamics Ax Developer Diabetes Education 03/17/23 Ravi Brownlee MD [address] [place] [address] 511375 Assigned Heart and Vascular Provider 09/04/23 01/03/24 Mitra Kendall, [facility] Lead General Farmworker Primary Care - CC 12/12/23 Lizet Mann PA-C [address] [place] [address] Assigned Cancer Care Provider 01/04/24 Ravi Brownlee MD [address] [place] [address] Assigned Pulmonology Provider 01/04/24 Nav Hughes MD [address] [place] [address] [address] [address] Assigned Heart and Vascular Provider 01/04/24 05/05/24 Manuel Ahn OD 6341 [facility] [place] [address] Combination Presser 01/05/24 Arabella Fishman MA Financial Resource Worker 01/06/24 03/19/24 Thalia Charles [facility] [address] [place], [place] [phone] Pharmacist Pharmacy 01/26/24 Gaurav Valenzuela APRN SENIOR WATER/WASTEWATER ENGINEER 606 [facility] [place] [facility] 106 [place] [address] Assigned Sleep Provider 02/04/24 Manuel Ahn OD 6341 [place], [place] 185482 Assigned Surgical Provider 02/04/24 06/02/24 Debbie Mann MD 1600 [facility] 200 [place] [address] Cardiovascular Disease 02/24/24 Hakeem Chacko MBBS 2945 [place] [address] Assigned Rheumatology Provider 04/05/24 Debbie Mann MD 1600 [facility] 200 [place] [address] Assigned Heart and Vascular Provider 05/06/24 Timothy Tejada MD 6341 [place] [phone] Ophthalmology 05/29/24 Timothy Tejada MD 6341 [place] [address] Assigned Surgical Provider 06/03/24 Elsie Roberts APRN SENIOR WATER/WASTEWATER ENGINEER 1600 [facility] [place] [address] [address] Nurse Practitioner Pain Medicine 10/16/24 Cristy Morton MD [facility] [address] [place]O [id number] Assigned Pediatric Specialist Provider 11/03/24 Georgie Anguiano PA-C [address] [address] Assigned Neuroscience Provider 12/04/24 documented as of this encounter
--- OUTSIDE RECORDS SUMMARY | 2024-12-06 00:34 | XMS_ITS | Encounter Summary ---
Author Organization [facility] Address [address] [place] [address] Care Team Providers Care Stroke Program Coordinator Name Role Phone Va Glez MD Primary Care Provider Va Glez MD Unavailable Kerry Bernal RN Unavailable Ravi Barillas DPM Unavailable [phone] Christy Campuzano PA-C Unavailable Hans Cannon MD Unavailable [phone] Mitra Kendall LOAN BROKER Unavailable Burt Jovel MD Unavailable Estella Hassan [facility] Unavailable Reji Chavez MD Unavailable Josh Cordero MD, Madhuri Unavailable [phone] Josh Cordero MD, Madhuri Unavailable [phone] Kelsi Hassan MD Unavailable [phone] John Webb MD Unavailable [phone] John Webb MD Unavailable [phone] Estella Hassan [facility] Unavailable Nav Hughes MD Unavailable [phone] Cassandra Mendoza MD Unavailable Estella Hassan RPH Unavailable Mitra Kendall LOAN BROKER Unavailable Aurelio Lindsay Keznie OD Unavailable Ravi Brownlee MD Unavailable Kye Arabella MA Unavailable [phone] Richard Kam MD Unavailable Marisol Patel RPH Unavailable Gaby Vila DO Unavailable Rosemarie Mcdowell RN Unavailable Ravi Brownlee MD Unavailable Mitra Kendall LOAN BROKER Unavailable Lizet MannC Unavailable Ravi Brownlee MD Unavailable Nav Hughes MD Unavailable [phone] Manuel Ahn OD Unavailable Kye Arabella MA Unavailable [phone] Thalia Charles RP Unavailable Gaurav Valenzuela APRN RIG MANAGER Unavailable Manuel Ahn OD Unavailable Debbie Mann MD Unavailable Hakeem Chacko Unavailable Debbie Mann MD Unavailable Timothy Tejada MD Unavailable Timothy Tejada MD Unavailable Elsie Roberts APRN RIG MANAGER Unavailable + Cristy Morton MD Unavailable Georgie Anguiano PA-C Unavailable Encounter Details Date Type Department Care Team (Late st Contact Info) Description 07/06/2020 MyC Medical Advice [address] [address] Estella Hassan, [facility] 30[address] [place] [address] Social History Tobacco Use Types Packs/Day Years [...] Answer Date Recorded PHQ-2 Score 0 06/05/2020 [facility] [place] of Occupat ional Health - Occupational Stress [...] on file 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 Gender Identity Not on file Sexual [...] Description 12/11/2024 2:10 PM CDT Therapy Visit [facility] [address] [place] [phone] Shanta Cooper PT 12/14/2024 11:20 AM CDT Office Visit [facility] [address] [facility] [address] [place] [phone] Lizet Mann PA-C [address] [facility] [address] 12/17/2024 2:10 PM CDT Office Visit [facility] Orthopedic [facility] 909 [facility] 4th [place] [address] Richard Kam MD [address] [place] [address] 12/19/2024 8:20 AM CDT Therapy Visit [address] [address] Shanta Cooper, PT 12/24/2024 5:00 PM CDT Therapy Visit [address] [address] Pattie Casillas, PT 12/25/2024 10:20 AM CDT Therapy Visit [address] [address] Shanta Cooper, PT 01/03/2025 1:00 PM CDT Office Visit [address] [phone] Estella Hassan, [facility] 30[address] [place] [address] 01/03/2025 1:30 PM CDT Office Visit [address] [phone] Va Glez MD [address] [place] [address] [id number] 01/08/2025 1:15 PM CDT Office Visit [address] [phone] Hakeem Chacko MBBS [address] [place] [address] Scheduled Procedures Name Priority Associated Diagnoses Date/Ti me INJECTION, EPIDURAL, TRANSFO RAMINAL APPROACH Cervical radiculitis RELEASE, CARPAL TUNNEL, ENDOSCOPIC Right carpal tunnel syndrome documented as of this encounter Visit Diagnoses Not on filedocumented in this encounter Additional Health Concerns Infection Onset Date Last Indicated Resolved Time Rule Out COVID-19 06/22/2021 06/22/2021 06/23/2021 8:58 PM CDT Rule Out COVID-19 01/22/2022 01/22/2022 01/24/2022 1:05 PM NURSE ASSISTANT Rule Out COVID-19 01/25/2022 01/25/2022 01/25/2022 5:21 AM NURSE ASSISTANT Influenza 01/25/2022 01/25/2022 02/01/2022 11:4 1 PM NURSE ASSISTANT Rule Out COVID-19 07/29/2022 07/29/2022 07/31/2022 11:17 AM CDT Rule Out COVID-19 03/23/2023 03/23/2023 03/23/2023 6:30 PM NURSE ASSISTANT COVID-19 03/23/2023 03/23/2023 04/13/2023 11:4 0 PM NURSE ASSISTANT Rule Out COVID-19 06/05/2023 06/05/2023 06/05/2023 5:53 PM CDT Rule Out COVID-19 11/06/2023 11/06/2023 11/06/2023 11:05 PM CDT Rule Out COVID-19 11/20/2023 11/20/2023 11/20/2023 6:43 PM CDT Rule Out COVID-19 12/27/2023 12/27/2023 12/29/2023 1:37 PM CDT Rule Out COVID-19 03/01/2024 03/01/2024 03/01/2024 1:11 PM NURSE ASSISTANT Rule Out COVID-19 07/18/2024 07/18/2024 07/19/2024 5:52 PM CDT Rule Out COVID-19 10/17/2024 10/17/2024 10/17/2024 11:23 PM CDT Rule Out C-difficile 11/04/2024 11/04/2024 025 1:55 AM CDT Assessment Noted Time PHQ-9 Depression Total Score: 2 06/06/19 21 12:47 PM CDT documented as of this encounter Care Teams Stroke Program Coordinator Relationship Specialty [place] [address] [place] [address] PCP - General Family Practice 07/11/14 [place] [address] [place] [address] Assigned PCP 12/16/11 Kerry Bernal RN Personal Advocate & Liaison (PAL) 01/08/19 07/10/23 Ravi Barillas DPM [id number] [place] [address] 300 [place] [address] Assigned Musculoskeletal Provider 03/23/20 10/30/21 Christy Campuzano PA-C [address] [place] [address] 842742 Referring Physician Family Medicine 04/22/20 Hans Cannon MD [address] [place] [address] Resident Pulmonary Disease 04/22/20 Mitra Kendall, LOAN BROKER Lead Social Sciences Professor Primary Care - CC 01/08/1901/12 Burt Jovel MD Internal Medicine 05/08/20 12/13/23 Estella Hassan, [facility] 30[address] [place] [address] Pharmacist Pharmacist 05/26/20 Reji Chavez MD 6405 [facility] [address] [place] [address] Assigned Heart and Vascular Provider 05/18/20 10/30/21 Elaina Moreno MD [address] [place] [address] Assigned Surgical Provider 05/18/20 11/19/22 Elaina Moreno MD [address] [place] [address] Cardiovascular & Thoracic Surgery 08/06/20 Kelsi Hassan MD [address] [place] [address] Assigned Pulmonology Provider 06/28/21 02/05/22 John Webb MD [address] [address] Cardiovascular Disease 08/25/21 John Webb MD [address] 396685 Cardiovascular Disease 08/25/21 Estlela Hassan, [facility] 30[address] [place] [address] Assigned MTM Pharmacist 09/05/21 Nav Hughes MD [address] [place] [address] Assigned Heart and Vascular Provider 10/31/21 09/03/23 Cassandra Mendoza MD ORTHOPAEDIC SURGERY [address] [address] Assigned Musculoskeletal Provider 10/31/21 08/13/22 Estella Hassan, [facility] 30[address] [place] [address] Assigned MTM Pharmacist 12/09/21 Mitra Kendall, [facility] Lead Social Sciences Professor Primary Care - CC 01/26/2210/28 Lindsay Carey OD 3305 [facility] [address] [address] Ophthalmology 01/29/22 Ravi Brownlee MD 420 [facility] 276 [place] [address] Assigned Pulmonology Provider 02/06/22 09/03/23 Arabella Fishman MA Financial Resource Worker 02/22/22 02/23/22 Richard Kam MD 500 [place] [address] Assigned Musculoskeletal Provider 08/14/22 Marisol Patel, [facility] [address] [address] Pharmacist Pharmacist 11/22/22 01/09/23 [place] [address] BC PENA, [address] [address] Assigned Neuroscience Provider 01/01/23 12/03/24 Rosemarie Mcdowell, RN Radio Presenter Diabetes Education 03/17/23 Ravi Brownlee MD [address] [place] [address] 917105 Assigned Heart and Vascular Provider 09/04/23 01/03/24 Mitra Kendall, LOAN BROKER Lead Social Sciences Professor Primary Care - CC 12/12/23 Lizet Mann PA-C [address] [place], [place] [address] [address] Assigned Cancer Care Provider 01/04/24 Ravi Brownlee MD [address] [place] [address] Assigned Pulmonology Provider 01/04/24 Nav Hughes MD [address] [place] [address] [address] [address] Assigned Heart and Vascular Provider 01/04/24 05/05/24 Manuel Ahn OD 6341 [facility] [address] [place]DS [address] Dermatology Teacher 01/05/24 Arabella Fishman MA Financial Resource Worker 01/06/24 03/19/24 Thalia Charles [facility] [address] [place] [address] Pharmacist Pharmacy 01/26/24 Gaurav Valenzuela APRN RIG MANAGER [address] [facility] 106 [place], [place] 283004 Assigned Sleep Provider 02/04/24 Manuel Ahn OD 6341 [place], [place] 131502 Assigned Surgical Provider 02/04/24 06/02/24 Debbie Mann MD 1600 [facility] 200 [place] [address] Cardiovascular Disease 02/24/24 Hakeem Chacko MBBS 2945 [place] [address] Assigned Rheumatology Provider 04/05/24 Debbie Mann MD 1600 [facility] 200 [place] [address] Assigned Heart and Vascular Provider 05/06/24 Timothy Tejada MD 6341 [place] [address] Ophthalmology 05/29/24 Timothy Tejada MD 6341 [place] [address] Assigned Surgical Provider 06/03/24 Elsie Roberts APRN RIG MANAGER 1600 [facility] [address] [address] Nurse Practitioner Pain Medicine 10/16/24 Cristy Morton MD 1440 [facility] [place] [place] [address] Assigned Pediatric Specialist Provider 11/03/24 Georgie Anguiano PA-C [address] [address] Assigned Neuroscience Provider 12/04/24 documented as of this encounter
--- OUTSIDE RECORDS SUMMARY | 2024-12-06 00:34 | XMS_ITS | Encounter Summary ---
Author Organization [place] Address [address] [place] [address] Care Team Providers Care Egg Candler Name Role Phone Va Glez MD Primary Care Provider [phone] Va Glez MD Unavailable Kerry Bernal RN Unavailable [phone] Ravi Barillas DPM Unavailable [phone] Christy Campuzano PA-C Unavailable [phone] Hans Cannon MD Unavailable [phone] Mitra Kendall RISK MANAGEMENT CONSULTANT Unavailable Burt Jovel MD Unavailable [phone] Estella Hassan [facility] Unavailable Reji Chavez MD Unavailable Josh Coredro MD, Madhuri Unavailable [phone] Josh Cordero MD, Madhuri Unavailable [phone] Kelsi Hassan MD Unavailable [phone] John Webb MD Unavailable [phone] John Webb MD Unavailable [phone] Estella Hassan [facility] Unavailable [phone] Nav Hughes MD Unavailable [phone] Cassandra Mendoza MD Unavailable Estella Hassan RPH Unavailable Mitra Kendall RISK MANAGEMENT CONSULTANT Unavailable Aurelio [place] Kenzie OD Unavailable Ravi Brownlee MD Unavailable Kye Arabella MA Unavailable [phone] Richard Kam MD Unavailable Marisol Patel RPH Unavailable Gaby Vila DO Unavailable Rosemarie Mcdowell RN Unavailable Ravi Brownlee MD Unavailable Mitra Kendall RISK MANAGEMENT CONSULTANT Unavailable Lizet MannC Unavailable Ravi Brownlee MD Unavailable Nav Hughes MD Unavailable [phone] Manuel Ahn OD Unavailable Kye Arabella MA Unavailable [phone] Thalia Charles RP Unavailable Gaurav Valenzuela APRN CHAIR PAD MAKER Unavailable Manuel Ahn OD Unavailable Dbebie Mann MD Unavailable Hkaeem Chacko Unavailable Debbie Mann MD Unavailable Timothy Tejada MD Unavailable Timothy Tejada MD Unavailable Elsei Roberts APRN CHAIR PAD MAKER Unavailable + Cristy Morton MD Unavailable Georgie Anguiano PA-C Unavailable [phone] Encounter Details Date Type Department Care Team (Late st Contact Info) Description 06/09/2020 MyC Medical Advice [address] [address] Estella Hassan, [facility] [address] [place] [address] Social History Tobacco Use Types Packs/Day Years [...] Answer Date Recorded PHQ-2 Score 0 06/05/2020 [facility] [place] of Occupat ional Health - Occupational Stress [...] file Legal 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 Gender Identity Not on file Sexual Orientation [...] Description 12/11/2024 2:10 PM CDT Therapy Visit [facility] [address] [place] [phone] Shanta Cooper PT 12/14/2024 11:20 AM CDT Office Visit [facility] [address] [facility] [place] [phone] Lizet Mann PA-C [address] [address] [facility] [address] 12/17/2024 2:10 PM CDT Office Visit [facility] [address] [facility] 4th [place] [phone] Richard Kam MD [address] [place] [address] 12/19/2024 8:20 AM CDT Therapy Visit [address] [address] Shanta Cooper, PT 12/24/2024 5:00 PM CDT Therapy Visit [address] [address] Pattie Casillas, PT 12/25/2024 10:20 AM CDT Therapy Visit [address] [address] Shanta Cooper, PT 01/03/2025 1:00 PM CDT Office Visit [address] [phone] Estella Hassan, [facility] [address] [place] [address] 01/03/2025 1:30 PM CDT Office Visit [address] [phone] Va Glez MD [address] [place] [id number] 01/08/2025 1:15 PM CDT Office Visit [address] [phone] Hakeem Chacko MBBS [address] [place] [address] Scheduled Procedures Name Priority Associated Diagnoses Date/Ti me INJECTION, EPIDURAL, TRANSFO RAMINAL APPROACH Cervical radiculitis RELEASE, CARPAL TUNNEL, ENDOSCOPIC Right carpal tunnel syndrome documented as of this encounter Visit Diagnoses Not on filedocumented in this encounter Additional Health Concerns Infection Onset Date Last Indicated Resolved Time Rule Out COVID-19 06/22/2021 06/22/2021 06/23/2021 8:58 PM CDT Rule Out COVID-19 01/22/2022 01/22/2022 01/24/2022 1:05 PM ASSOCIATE DEAN OF WOMEN Rule Out COVID-19 01/25/2022 01/25/2022 01/25/2022 5:21 AM ASSOCIATE DEAN OF WOMEN Influenza 01/25/2022 01/25/2022 02/01/2022 11:4 1 PM ASSOCIATE DEAN OF WOMEN Rule Out COVID-19 07/29/2022 07/29/2022 07/31/2022 11:17 AM CDT Rule Out COVID-19 03/23/2023 03/23/2023 03/23/2023 6:30 PM ASSOCIATE DEAN OF WOMEN COVID-19 03/23/2023 03/23/2023 04/13/2023 11:4 0 PM ASSOCIATE DEAN OF WOMEN Rule Out COVID-19 06/05/2023 06/05/2023 06/05/2023 5:53 PM CDT Rule Out COVID-19 11/06/2023 11/06/2023 11/06/2023 11:05 PM CDT Rule Out COVID-19 11/20/2023 11/20/2023 11/20/2023 6:43 PM CDT Rule Out COVID-19 12/27/2023 12/27/2023 12/29/2023 1:37 PM CDT Rule Out COVID-19 03/01/2024 03/01/2024 03/01/2024 1:11 PM ASSOCIATE DEAN OF WOMEN Rule Out COVID-19 07/18/2024 07/18/2024 07/19/2024 5:52 PM CDT Rule Out COVID-19 10/17/2024 10/17/2024 10/17/2024 11:23 PM CDT Rule Out C-difficile 11/04/2024 11/04/2024 025 1:55 AM CDT Assessment Noted Time PHQ-9 Depression Total Score: 2 06/06/19 21 12:47 PM CDT documented as of this encounter Care Teams Egg Candler Relationship Specialty [place] [address] [place] [address] PCP - General Family Practice 07/11/14 [place] [address] [place] [address] Assigned PCP 12/16/11 Kerry Bernal RN Personal Advocate & Liaison (PAL) 01/08/19 07/10/23 Ravi Barillas DPM [id number] [place] [address] [address] [place] [address] Assigned Musculoskeletal Provider 03/23/20 10/30/21 Christy Campuzano PA-C [address] [place] [address] [id number] Referring Physician Family Medicine 04/22/20 Hans Cannon MD [address] [place] [address] Resident Pulmonary Disease 04/22/20 Mitra Kendall, RISK MANAGEMENT CONSULTANT Lead Armored Machine Operator Primary Care - CC 01/08/1901/12 Burt Jovel MD Internal Medicine 05/08/20 12/13/23 Estella Hassan, [facility] [address] [place] [address] Pharmacist Pharmacist 05/26/20 Reji Chavez MD 6[address] [facility] [address] [place] [phone] Assigned Heart and Vascular Provider 05/18/20 10/30/21 Elaina Moreno MD [address] [place] [address] Assigned Surgical Provider 05/18/20 11/19/22 Elaina Moreno MD [address] [place] [address] Cardiovascular & Thoracic Surgery 08/06/20 Kelsi Hassan MD [address] [place] [address] Assigned Pulmonology Provider 06/28/21 02/05/22 John Webb MD [address] [address] Cardiovascular Disease 08/25/21 John Webb MD [address] 449505 Cardiovascular Disease 08/25/21 Etsella Hassan, [facility] [address] [place] [address] Assigned MTM Pharmacist 09/05/21 Nav Hughes MD [address] [facility] [address] [address] [place] [address] Assigned Heart and Vascular Provider 10/31/21 09/03/23 Cassandra Mendoza MD ORTHOPAEDIC SURGERY [address] [address] Assigned Musculoskeletal Provider 10/31/21 08/13/22 Estella Hassan, [facility] [address] [place] [address] Assigned MTM Pharmacist 12/09/21 Mitra Kendall, [facility] Lead Armored Machine Operator Primary Care - CC 01/26/2210/28 [place] Carey OD 3305 [facility] [place] [address] Ophthalmology 01/29/22 Ravi Brownlee MD 420 [facility] 276 [place] [address] Assigned Pulmonology Provider 02/06/22 09/03/23 Arabella Fishman MA Financial Resource Worker 02/22/22 02/23/22 Richard Kam MD 500 [place] [address] Assigned Musculoskeletal Provider 08/14/22 Marisol Patel, [facility] [address] [place] [address] Pharmacist Pharmacist 11/22/22 01/09/23 [place] [address] [place] PENA, [address] [address] Assigned Neuroscience Provider 01/01/23 12/03/24 Rosemarie Mcdowell, RN It Portfolio Manager Diabetes Education 03/17/23 Ravi Brownlee MD [address] [place] [address] 683555 Assigned Heart and Vascular Provider 09/04/23 01/03/24 Mitra Kendall, RISK MANAGEMENT CONSULTANT Lead Armored Machine Operator Primary Care - CC 12/12/23 Lizet Mann PA-C [address] [place], [place] [address] [address] Assigned Cancer Care Provider 01/04/24 Ravi Brownlee MD [address] [place] [address] Assigned Pulmonology Provider 01/04/24 Nav Hughes MD [address] [place] [address] [place] [address] Assigned Heart and Vascular Provider 01/04/24 05/05/24 Manuel Ahn OD 6341 [facility] [place] [address] Licensed Veterinary Technician 01/05/24 Arabella Fishman MA Financial Resource Worker 01/06/24 03/19/24 Thalia Charles [facility] [address] [place] [address] Pharmacist Pharmacy 01/26/24 Gaurav Valenzuela APRN CHAIR PAD MAKER [address] [facility] 106 [place], [place] 654374 Assigned Sleep Provider 02/04/24 Manuel Ahn OD 6341 [place], [place] 710822 Assigned Surgical Provider 02/04/24 06/02/24 Debbie Mann MD 1600 [facility] 200 [place] [address] Cardiovascular Disease 02/24/24 Hakeem Chacko MBBS [address]45 [place] [address] Assigned Rheumatology Provider 04/05/24 Debbie Mann MD 1600 [facility] 200 [place] [address] Assigned Heart and Vascular Provider 05/06/24 Timothy Tejada MD [address] [place] [phone] Ophthalmology 05/29/24 Timothy Tejada MD [address] [place] [address] Assigned Surgical Provider 06/03/24 Elsie Roberts APRN CHAIR PAD MAKER 1600 [facility] [place] 101 [place] [address] Nurse Practitioner Pain Medicine 10/16/24 Cristy Morton MD 1440 [facility] [place] [address] Assigned Pediatric Specialist Provider 11/03/24 Georgie Anguiano PA-C [address] [address] Assigned Neuroscience Provider 12/04/24 documented as of this encounter
--- OUTSIDE RECORDS SUMMARY | 2024-12-06 00:34 | XMS_ITS | Encounter Summary ---
Author Organization [facility] Address [address] [place] [address] Care Team Providers Care Engine Lathe Set Up Operator Tool Name Role Phone Va Glez MD Primary Care Provider Va Glez MD Unavailable Kerry Bernal RN Unavailable [phone] Ravi Barillas DPM Unavailable [phone] Christy CampuzanoC Unavailable Hans Cannon MD Unavailable [phone] Mitra Kendall MEASURING MACHINE TENDER Unavailable [phone] Faith Templeton CHW Unavailable [phone] Burt Jovel MD Unavailable Estella Hassan [facility] Unavailable Reji Chavez MD Unavailable Josh Cordero MD, Madhuri Unavailable [phone] Josh Cordero MD, Madhuri Unavailable [phone] Kelsi Hassan MD Unavailable [phone] John Webb MD Unavailable [phone] John Webb MD Unavailable [phone] Estella Hassan [facility] Unavailable [phone] Nav Hughes MD Unavailable [phone] Cassandra Mendoza MD Unavailable Estella Hassan [facility] Unavailable Mitra Kendall MEASURING MACHINE TENDER Unavailable [place] Carey OD Unavailable Ravi Brownlee MD Unavailable Arabella Fishman MA Unavailable [phone] Richard Kam MD Unavailable Marisol Patel [facility] Unavailable Gaby Vila DO Unavailable Rosemraie Mcdowell RN Unavailable Ravi Brownlee MD Unavailable Mitra Kendall MEASURING MACHINE TENDER Unavailable Lizet Mann-C Unavailable Ravi Brownlee MD Unavailable Nav Hughes MD Unavailable [phone] Manuel Ahn OD Unavailable Arabella Fishman MA Unavailable Thalia Charles [facility] Unavailable Gaurav Valenzuela APRN SUPERVISOR SAWMILL Unavailable Manuel Ahn OD Unavailable Debbie Mann MD Unavailable Hakeem Chacko Unavailable Debbie Mann MD Unavailable Timothy Tejada MD Unavailable Timothy Tejada MD Unavailable Elsie Roberts APRN SUPERVISOR SAWMILL Unavailable + Cristy Morton MD Unavailable Georgie Anguiano PA-C Unavailable [phone] Encounter Details Date Type Department Care Team (Late st Contact Info) Description 06/05/2020 MyC Medical Advice [address] [address] [facility] [address] [place] [address] Social History Tobacco Use Types [...] Answer Date Recorded PHQ-2 Score 0 06/05/2020 [facility] [place] of Occupat ional Health - Occupational Stress [...] on file 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 He did take around 1 PMlast week when learning in clinic, but prefers to take in the morning. Stated okay to start taking in the morning as he is tolerating well. Tino Medina, ThomD, BCACP Medication Therapy Management Pharmacist Pager: [phone] documented in this encounter Plan of Treatment Upcoming Encounters Date Type Department Care Team (Late st Contact Info) Description 12/11/2024 2:10 PM CDT Therapy Visit [address] [phone] Shanta Cooper, PT 12/14/2024 11:20 AM CDT Office Visit [facility] [address] [facility] [place] [address] Lizet Mann PA-C [address] [place] [address] 12/17/2024 2:10 PM CDT Office Visit [facility] [address] [place] [address] 4th [place] [phone] Richard Kam MD [address] [place] [address] 12/19/2024 8:20 AM CDT Therapy Visit [address] [phone] Shanta Cooper, PT 12/24/2024 5:00 PM CDT Therapy Visit [address] [phone] Pattie Casillas, PT 12/25/2024 10:20 AM CDT Therapy Visit [address] [phone] Shanta Cooper, PT 01/03/2025 1:00 PM CDT Office Visit [facility] [address] [place] [phone] Estella Hassan, [facility] [address] [place] [address] 01/03/2025 1:30 PM CDT Office Visit [facility] [address] [place] [phone] [place] [address] [place] [address] 01/08/2025 1:15 PM CDT Office Visit [facility] 2945 [facility] 200 [place] [address] Hakeem Chacko MBBS 2945 [place], [place] [phone] Scheduled Procedures Name Priority Associated Diagnoses Date/Ti me INJECTION, EPIDURAL, TRANSFO RAMINAL APPROACH Cervical radiculitis RELEASE, CARPAL TUNNEL, ENDOSCOPIC Right carpal tunnel syndrome documented as of this encounter Visit Diagnoses Not on filedocumented in this encounter Additional Health Concerns Infection Onset Date Last Indicated Resolved Time Rule Out COVID-19 06/22/2021 06/22/2021 06/23/2021 8:58 PM CDT Rule Out COVID-19 01/22/2022 01/22/2022 01/24/2022 1:05 PM AUTOMOBILE BODY REPAIRER HELPER Rule Out COVID-19 01/25/2022 01/25/2022 01/25/2022 5:21 AM AUTOMOBILE BODY REPAIRER HELPER Influenza 01/25/2022 01/25/2022 02/01/2022 11:4 1 PM AUTOMOBILE BODY REPAIRER HELPER Rule Out COVID-19 07/29/2022 07/29/2022 07/31/2022 11:17 AM CDT Rule Out COVID-19 03/23/2023 03/23/2023 03/23/2023 6:30 PM AUTOMOBILE BODY REPAIRER HELPER COVID-19 03/23/2023 03/23/2023 04/13/2023 11:4 0 PM AUTOMOBILE BODY REPAIRER HELPER Rule Out COVID-19 06/05/2023 06/05/2023 06/05/2023 5:53 PM CDT Rule Out COVID-19 11/06/2023 11/06/2023 11/06/2023 11:05 PM CDT Rule Out COVID-19 11/20/2023 11/20/2023 11/20/2023 6:43 PM CDT Rule Out COVID-19 12/27/2023 12/27/2023 12/29/2023 1:37 PM CDT Rule Out COVID-19 03/01/2024 03/01/2024 03/01/2024 1:11 PM AUTOMOBILE BODY REPAIRER HELPER Rule Out COVID-19 07/18/2024 07/18/2024 07/19/2024 5:52 PM CDT Rule Out COVID-19 10/17/2024 10/17/2024 10/17/2024 11:23 PM CDT Rule Out C-difficile 11/04/2024 11/04/2024 025 1:55 AM CDT Assessment Noted Time PHQ-9 Depression Total Score: 2 06/06/19 21 12:47 PM CDT documented as of this encounter Care Teams Engine Lathe Set Up Operator Tool Relationship Specialty [place] [address] [place] [address] PCP - General Family Practice 07/11/14 [place] [address] [place] [address] Assigned PCP 12/16/11 Kerry Bernal RN Personal Advocate & Liaison (PAL) 01/08/19 07/10/23 Ravi Barillas DPM [address] [facility] 300 [place], [place] [phone] Assigned Musculoskeletal Provider 03/23/20 10/30/21 Christy Campuzano PA-C 4151 [place], [place] 439022 Referring Physician Family Medicine 04/22/20 Hans Cannon MD [address] [place] [address] 313792 Resident Pulmonary Disease 04/22/20 Mitra Kendall, MEASURING MACHINE TENDER Lead Graduate Assistant Athletic Trainer Primary Care - CC 01/08/1901/12 Faith Templeton, [facility] Community Health Worker 04/30/2006/05 Burt Jovel MD Internal Medicine 05/08/20 12/13/23 Estella Hassan, [facility] [address] [place], [place] 4108[address] Pharmacist Pharmacist 05/26/20 [place] [address] [place] [phone] Assigned Heart and Vascular Provider 05/18/20 10/30/21 Elaina Moreno MD [address] [place] [address] Assigned Surgical Provider 05/18/20 11/19/22 Elaina Moreno MD [address] [place] [address] 044495 Cardiovascular & Thoracic Surgery 08/06/20 [place] [address] [place] [address] [place], [place] 451804 Assigned Pulmonology Provider 06/28/21 02/05/22 John Webb MD [address] [address] Cardiovascular Disease 08/25/21 John Webb MD [address] [address] Cardiovascular Disease 08/25/21 Estella Hassan, [facility] [address] [place] [address] Assigned MTM Pharmacist 09/05/21 Nav Hughes MD [address] [place] [address] Assigned Heart and Vascular Provider 10/31/21 09/03/23 Cassandra Mendoza MD ORTHOPAEDIC SURGERY [address] [address] Assigned Musculoskeletal Provider 10/31/21 08/13/22 Estella Hassan, [facility] [address] [place] [address] Assigned MTM Pharmacist 12/09/21 Mitra Kendall, [facility] Lead Graduate Assistant Athletic Trainer Primary Care - CC 01/26/2210/28 [place] Carey OD [address] [place] [address] [place] [address] Ophthalmology 01/29/22 Ravi Brownlee MD [address] [place] [address] Assigned Pulmonology Provider 02/06/22 09/03/23 Arabella Fishman MA Financial Resource Worker 02/22/22 02/23/22 Richard Kam MD [address] [place] [address] Assigned Musculoskeletal Provider 08/14/22 Marisol Patel, [facility] [address] [place] [address] Pharmacist Pharmacist 11/22/22 01/09/23 [place] [address] [address] Assigned Neuroscience Provider 01/01/23 12/03/24 Rosemarie Mcdowell RN Translator Deaf Diabetes Education 03/17/23 Ravi Brownlee MD [address] [place] [address] Assigned Heart and Vascular Provider 09/04/23 01/03/24 Mitra Kendall, MEASURING MACHINE TENDER Lead Graduate Assistant Athletic Trainer Primary Care - CC 12/12/23 Lizet Mann PA-C [address] [place] [address] Assigned Cancer Care Provider 01/04/24 Ravi Brownlee MD 420 [facility] 276 [place] [address] Assigned Pulmonology Provider 01/04/24 Nav Hughes MD 6405 [facility] [address] [place] [address] Assigned Heart and Vascular Provider 01/04/24 05/05/24 Manuel Ahn, OD 6341 [place] [address] User Support Specialist 01/05/24 Arabella Fishman [place] Financial Resource Worker 01/06/24 03/19/24 Thalia Charles [facility] [address] [place], [place] [phone] Pharmacist Pharmacy 01/26/24 Gaurav Valenzuela APRN SUPERVISOR SAWMILL 606 [facility] 106 [place] [address] Assigned Sleep Provider 02/04/24 Manuel Ahn, OD 6341 [place], [place] 329562 Assigned Surgical Provider 02/04/24 06/02/24 Debbie Mann MD 1600 [facility] 200 [place], [place] [phone] Cardiovascular Disease 02/24/24 Hakeem Chacko MBBS 2945 [place], [place] 29[address] Assigned Rheumatology Provider 04/05/24 Debbie Mann MD 1600 [facility] 200 [place] [address] Assigned Heart and Vascular Provider 05/06/24 Timothy Tejada MD [address] [place] [phone] MD Ophthalmology 05/29/24 Timothy Tejada MD [address] [place] [phone] Assigned Surgical Provider 06/03/24 Elsie Roberts APRN CNP 1600 [facility] 101 [place] [address] Nurse Practitioner Pain Medicine 10/16/24 Cristy Morton MD [address] [place] [address] SHANK[place] ROMO [id number] Assigned Pediatric Specialist Provider 11/03/24 Georgie Anguiano PA-C 6545 [facility] SHANKAR K[place] [id number] Assigned Neuroscience Provider 12/04/24 documented as of this encounter
--- OUTSIDE RECORDS SUMMARY | 2024-12-06 00:35 | XMS_ITS | Encounter Summary ---
Author Organization [facility] Address [address] [place] [address] Care Team Providers Care Booster Pump Oiler Name Role Phone Va Glez MD Primary Care Provider [phone] Va Glez MD Unavailable Christy CampuzanoC Unavailable [phone] Hans Cannon MD Unavailable [phone] Estella Hassan [facility] Unavailable Josh Cordero MD, Madhuri Unavailable [phone] John Webb MD Unavailable John Webb MD Unavailable Estella Hassan [facility] Unavailable Lindsay Carey OD Unavailable [phone] Richard Kam MD Unavailable Gaby Vila DO Unavailable [phone] Rosemarie Mcdowell RN Unavailable Mitra Kendall TAILOR'S AIDE Unavailable [phone] Lizet Mann PA-C Unavailable Ravi Brownlee MD Unavailable Manuel Ahn OD Unavailable [phone] Thalia Charles [facility] Unavailable [phone] Gaurav Valenzuela WORK ENVIRONMENT SAFETY INSPECTOR APPLIED BEHAVIOR SPECIALIST Unavailable [phone] Debbie Mann MD Unavailable [phone] Hakeem Chacko MB Unavailable Debbie Mann MD Unavailable [phone] Timothy Tejada MD Unavailable [phone] Timothy Tejada MD Unavailable [phone] Alejandra Elsie Jennifer WORK ENVIRONMENT SAFETY INSPECTOR APPLIED BEHAVIOR SPECIALIST Unavailable + Encounter Details Date Type Department Care Team (Latest Contact Info) Description 10/31/2024 Travel Social History Tobacco Use Types Packs/Day [...] re latives? 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 [address] [place] [phone] Lizet Mann PA-C [address] [place] [address] 12/17/2024 2:10 PM CDT Office Visit [facility] Orthopedic [facility] [address] [place] [address] 4th [place] [phone] Richard Kam MD [address] [place] [address] 12/19/2024 8:20 AM CDT Therapy Visit [address] [phone] Shanta Cooper, PT 12/24/2024 5:00 PM CDT Therapy Visit [address] [phone] Pattie Casillas, PT 12/25/2024 10:20 AM CDT Therapy Visit [address] [phone] Shanta Cooper, PT 01/03/2025 1:00 PM CDT Office Visit [facility] [address] [place] [phone] Estella Hassan, [facility] [address] [place] [address] 01/03/2025 1:30 PM CDT Office Visit [facility] [address] [place] [address] [place] [address] [place] [address] 01/08/2025 1:15 PM CDT Office Visit [facility] 2945 [facility] 200 [place] [address] Hakeem Chacko MBBS 2945 [place] [address] Scheduled Procedures Name Priority Associated Diagnoses Date/Ti [...] for health insurance by looking in to [employer] and talking with a FRW. Completed 3. I will look for a new job and will access resources that the [employer] center offers. . Sarted new job 4. [...] by household income. 2. I will contact [facility] to ask about medicare plans and if there are saving programs I qualify for by by calling [phone]. 3. I will see if I am eligible for unemployment after losing my job. I will call [phone] to ask for assistance with unemployment application. 4. I will apply for jobs. I will work with [employer] [facility] in finding a job (Empowerment.) 5. I will access [employer] and ask about financial resources (such as [...] Ronnie. 3. I will meet with community poultry husbandry worker Manjula Gresham. 4. I will look in to attending an IOP program. I will discuss with my [place] mental Health therapist and number provided for [facility] Behavioral Access - [phone] to schedule assessment fr IOP program. 5. I will go to [facility] if I have concerning mental health symptoms. 6. I will access [facility] Crisis if needed by calling [phone]. 7. I will consider calling [facility] Adult Mental health intake at [phone]. documented as of this encounter Visit Diagnoses [...] of Success: will complete the application with W Strengths: accepting of assistance Patient expressed understanding of goal: yes Action steps to achieve this goal 1. I will answer my phone when FRW calls to help me with insurance application. 2. I will provide accurate information and submit it to the [facility]. 3. I will update [facility] Team at outreach. Health Maintenance Due or Overdue 12/16/2023 Patient expresses financial resource strain 12/13 Mental Health Symptoms Need Improvement 04/05/19 Assessment Noted Time PHQ-9 Depression Total Score: 7 09/28/19 11:01 AM CDT documented as of this encounter Care Teams Booster Pump Oiler Relationship Specialty [place] [address] [place], [place] [id number] PCP - General Family Practice 07/11/14 [place] [address] [place], [place] [id number] Assigned PCP 12/16/11 Christy Campuzano PA-C [address] [place] [address] 295642 Referring Physician Family Medicine 04/22/20 Hans Cannon MD [address] [place] [address] 938562 Resident Pulmonary Disease 04/22/20 Estella Hassan, [facility] [place], [place] 975916 Pharmacist Pharmacist 05/26/20 Elaina Moreno MD 9 [place], [place] 913775 Cardiovascular & Thoracic Surgery 08/06/20 John Webb MD [address] [id number] Cardiovascular Disease 08/25/21 John Webb MD [address] 221645 Cardiovascular Disease 08/25/21 Estella Hassan, [facility] [address] [place] [address] Assigned MTM Pharmacist 12/09/21 Lindsay Carey OD [address] [facility] [place] [address] Ophthalmology 01/29/22 Richard Kam MD [address] [place] [place] [address] 140595 Assigned Musculoskeletal Provider 08/14/22 [place] [address] [phone] Assigned Neuroscience Provider 01/01/23 12/03/24 Rosemarie Mcdowell RN Utility Tender Carding Diabetes Education 03/17/23 Mitra Kendall, TAILOR'S AIDE Lead School Cafeteria Cook Primary Care - CC 12/12/23 Lizet Mann PA-C [address] [place] [address] Assigned Cancer Care Provider 01/04/24 Ravi Brownlee MD [address] [place] [address]696 Assigned Pulmonology Provider 01/04/24 Manuel Ahn OD [address] [place] [address] Human Resources Recruiter 01/05/24 Thalia Charles, [facility] [address] [place] [address] Pharmacist Pharmacy 01/26/24 Gaurav Valenzuela APRN APPLIED BEHAVIOR SPECIALIST 606 [facility] 106 [place] [address] Assigned Sleep Provider 02/04/24 Debbie Mann MD 1600 [facility] 200 [place] [address] Cardiovascular Disease 02/24/24 Hakeem Chacko MBBS 2945 [place] [address] Assigned Rheumatology Provider 04/05/24 Debbie Mann MD 1600 [facility] 200 [place] [address] Assigned Heart and Vascular Provider 05/06/24 Timothy Tejada MD 6341 [place] [phone] Ophthalmology 05/29/24 Timothy Tejada MD [address] [place] [address]-25594946 Assigned Surgical Provider 06/03/24 Elsie Roberts APRN APPLIED BEHAVIOR SPECIALIST 1600 [facility] 101 [place], [place] [phone] Nurse Practitioner Pain Medicine 10/16/24 documented as of this encounter
--- OUTSIDE RECORDS SUMMARY | 2024-12-06 00:35 | XMS_ITS | Encounter Summary ---
Author Organization [facility] Address [address] [place] [address]77 Care Team Providers Care Painter Set Name Role Phone Va Glez MD Primary Care Provider [phone] Va Glez MD Unavailable Kerry Bernal RN Unavailable Ravi Barillas DPM Unavailable [phone] Christy Campuzano PA-C Unavailable Hans Cannon MD Unavailable Mitra Kendall PUBLIC SPEAKING TEACHER Unavailable Burt Jovel MD Unavailable [phone] Estella Hassan [facility] Unavailable Reji Chavez MD Unavailable Josh Cordero MD, Madhuri Unavailable [phone] Josh Cordero MD, Madhuri Unavailable [phone] Kelsi Hassan MD Unavailable [phone] John Webb MD Unavailable John Webb MD Unavailable Estella Hassan [facility] Unavailable [phone] Nav Hughes MD Unavailable [phone] Cassandra Mendoza MD Unavailable Estella Hassan RPH Unavailable Mitra Kendall PUBLIC SPEAKING TEACHER Unavailable Aurelio Lindsay Kenzie OD Unavailable Ravi Brownlee MD Unavailable Kye Arabella MA Unavailable [phone] Richard Kam MD Unavailable Marisol Patel RPH Unavailable Gaby Vila DO Unavailable Rosemarie Mcdowell RN Unavailable Ravi Brownlee MD Unavailable Mitra Kendall PUBLIC SPEAKING TEACHER Unavailable Lizet MannC Unavailable Ravi Brownlee MD Unavailable Nav Hughes MD Unavailable [phone] Manuel Ahn OD Unavailable Kye Arabella MA Unavailable [phone] Thalia Charles RP Unavailable Gaurav Valenzuela APRN CORE SHAPER SIDES Unavailable Manuel Ahn OD Unavailable Debbie Mann MD Unavailable Hakeem Chacko Unavailable Debbie Mann MD Unavailable Timothy Tejada MD Unavailable Timothy Tejada MD Unavailable Elsie Roberts APRN CORE SHAPER SIDES Unavailable + Cristy Morton MD Unavailable [phone] Georgie Anguiano PA-C Unavailable Encounter Details Date Type Department Care Team (Late st Contact Info) Description 06/06/2020 My[facility] Medical Advice [address] [address] Estella Hassan, [facility] [address] [place] [address] Social History Tobacco Use Types Packs/Day Years [...] Answer Date Recorded PHQ-2 Score 0 06/05/2020 [facility] [place] of Occupat ional Health - Occupational Stress [...] file 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 [address] [facility] [address] [facility] [place] [address] Lizet Mann PA-C [address] [facility] [place] [address] 12/17/2024 2:10 PM CDT Office Visit [facility] Orthopedic [facility] 909 [facility] 4th [place] [address]4800 Richard Kam MD [address] [place] [address] 12/19/2024 8:20 AM CDT Therapy Visit [address] [address] Shanta Cooper, PT 12/24/2024 5:00 PM CDT Therapy Visit [address] [address] Pattie Casillas, PT 12/25/2024 10:20 AM CDT Therapy Visit [address] [address] Shanta Cooper, PT 01/03/2025 1:00 PM CDT Office Visit [address] [phone] Estella Hassan, [facility] 30[address] [place] [address] 01/03/2025 1:30 PM CDT Office Visit [address] [phone] Va Glez MD [address] [place] [address] [id number] 01/08/2025 1:15 PM CDT Office Visit [address] [phone] Hakeem Chacko MBBS [address] [place] [address] Scheduled Procedures Name Priority Associated Diagnoses Date/Ti me INJECTION, EPIDURAL, TRANSFO RAMINAL APPROACH Cervical radiculitis RELEASE, CARPAL TUNNEL, ENDOSCOPIC Right carpal tunnel syndrome documented as of this encounter Visit Diagnoses Not on filedocumented in this encounter Additional Health Concerns Infection Onset Date Last Indicated Resolved Time Rule Out COVID-19 06/22/2021 06/22/2021 06/23/2021 8:58 PM CDT Rule Out COVID-19 01/22/2022 01/22/2022 01/24/2022 1:05 PM ACCOUNT DEVELOPMENT REPRESENTATIVE Rule Out COVID-19 01/25/2022 01/25/2022 01/25/2022 5:21 AM ACCOUNT DEVELOPMENT REPRESENTATIVE Influenza 01/25/2022 01/25/2022 02/01/2022 11:4 1 PM ACCOUNT DEVELOPMENT REPRESENTATIVE Rule Out COVID-19 07/29/2022 07/29/2022 07/31/2022 11:17 AM CDT Rule Out COVID-19 03/23/2023 03/23/2023 03/23/2023 6:30 PM ACCOUNT DEVELOPMENT REPRESENTATIVE COVID-19 03/23/2023 03/23/2023 04/13/2023 11:4 0 PM ACCOUNT DEVELOPMENT REPRESENTATIVE Rule Out COVID-19 06/05/2023 06/05/2023 06/05/2023 5:53 PM CDT Rule Out COVID-19 11/06/2023 11/06/2023 11/06/2023 11:05 PM CDT Rule Out COVID-19 11/20/2023 11/20/2023 11/20/2023 6:43 PM CDT Rule Out COVID-19 12/27/2023 12/27/2023 12/29/2023 1:37 PM CDT Rule Out COVID-19 03/01/2024 03/01/2024 03/01/2024 1:11 PM ACCOUNT DEVELOPMENT REPRESENTATIVE Rule Out COVID-19 07/18/2024 07/18/2024 07/19/2024 5:52 PM CDT Rule Out COVID-19 10/17/2024 10/17/2024 10/17/2024 11:23 PM CDT Rule Out C-difficile 11/04/2024 11/04/2024 025 1:55 AM CDT Assessment Noted Time PHQ-9 Depression Total Score: 2 06/06/19 21 12:47 PM CDT documented as of this encounter Care Teams Painter Set Relationship Specialty [place] [address] [place] [address] PCP - General Family Practice 07/11/14 [place] [address] [place] [address] Assigned PCP 12/16/11 Kerry Bernal RN Personal Advocate & Liaison (PAL) 01/08/19 07/10/23 Ravi Barillas DPM [id number] [place] [address] 300 [place] [address] Assigned Musculoskeletal Provider 03/23/20 10/30/21 Christy Campuzano PA-C [address] [place] [address] 627412 Referring Physician Family Medicine 04/22/20 Hans Cannon MD [address] [place] [address] Resident Pulmonary Disease 04/22/20 Mitra Kendall, PUBLIC SPEAKING TEACHER Lead After School Tutor Primary Care - CC 01/08/1901/12 Burt Jovel MD Internal Medicine 05/08/20 12/13/23 Estella Hassan, [facility] [address] [place] [address] Pharmacist Pharmacist 05/26/20 Reji Chavez MD [address] [facility] [address] [place] [address] Assigned Heart and Vascular Provider 05/18/20 10/30/21 Elaina Moreno MD [address] [place] [address] Assigned Surgical Provider 05/18/20 11/19/22 Elaina Moreno MD [address] [place] [place] [address] Cardiovascular & Thoracic Surgery 08/06/20 Kelsi Hassan MD [address] [place] [address] Assigned Pulmonology Provider 06/28/21 02/05/22 John Webb MD [address] [address] Cardiovascular Disease 08/25/21 John Webb MD [address] 734455 Cardiovascular Disease 08/25/21 Estella Hassan, [facility] 30[address] [place] [address] Assigned MTM Pharmacist 09/05/21 Nav Hughes MD [address] [facility] [address] [address] [place] [address] Assigned Heart and Vascular Provider 10/31/21 09/03/23 Cassandra Mendoza MD ORTHOPAEDIC SURGERY [address] [address] Assigned Musculoskeletal Provider 10/31/21 08/13/22 Estella Hassan, [facility] [address] [place] [address] Assigned MTM Pharmacist 12/09/21 Mitra Kendall, [facility] Lead After School Tutor Primary Care - CC 01/26/2210/28 Lindsay Carey OD [address] [facility] [place] [place] [address] Ophthalmology 01/29/22 Ravi Brownlee MD 420 [facility] 276 [place] [address] Assigned Pulmonology Provider 02/06/22 09/03/23 Arabella Fishman MA Financial Resource Worker 02/22/22 02/23/22 Richard Kam MD 500 [place] [address] Assigned Musculoskeletal Provider 08/14/22 Marisol Patel, [facility] [address] [place] [address] Pharmacist Pharmacist 11/22/22 01/09/23 [place] [address] [place], [address] [address] Assigned Neuroscience Provider 01/01/23 12/03/24 Rosemarie Mcdowell, RN Risk Management Professional Diabetes Education 03/17/23 Ravi Brownlee MD [address] [place] [address] 797765 Assigned Heart and Vascular Provider 09/04/23 01/03/24 Mitra Kendall, PUBLIC SPEAKING TEACHER Lead After School Tutor Primary Care - CC 12/12/23 Lizet Mann PA-C [address] [place], [place] [address] [address] Assigned Cancer Care Provider 01/04/24 Ravi Brownlee MD [address] [place] [address] Assigned Pulmonology Provider 01/04/24 Nav Hughes MD [address] [place] [address] [address] [address] Assigned Heart and Vascular Provider 01/04/24 05/05/24 Manuel hAn OD 6341 [facility] [address] [address] Engineering Group Manager 01/05/24 Arabella Fishman MA Financial Resource Worker 01/06/24 03/19/24 Thalia Charles [facility] [address] [place] [address] Pharmacist Pharmacy 01/26/24 Gaurav Valenzuela APRN CORE SHAPER SIDES [address] [facility] 106 [place], [place] 517304 Assigned Sleep Provider 02/04/24 Manuel Ahn OD 6341 [place], [place] 189552 Assigned Surgical Provider 02/04/24 06/02/24 Debbie Mann MD 1600 [facility] 200 [place] [address] Cardiovascular Disease 02/24/24 Hakeem Chacko MBBS 2945 [place] [address] Assigned Rheumatology Provider 04/05/24 Debbie Mann MD 1600 [facility] 200 [place] [address] Assigned Heart and Vascular Provider 05/06/24 Timothy Tejada MD 6341 [place] [phone] Ophthalmology 05/29/24 Timothy Tejada MD [address] [place] [address] Assigned Surgical Provider 06/03/24 Elsie Roberts APRN CORE SHAPER SIDES 1600 [facility] [place] [address] [place] [address] Nurse Practitioner Pain Medicine 10/16/24 Cristy Morton MD 1440 [facility] [place] [address] Assigned Pediatric Specialist Provider 11/03/24 Georgie Anguiano PA-C [address] [address] Assigned Neuroscience Provider 12/04/24 documented as of this encounter
--- OUTSIDE RECORDS SUMMARY | 2024-12-06 00:35 | XMS_ITS | Encounter Summary ---
Author Organization [place] Address [address] [place] [address] Care Team Providers Care Legal Archivist Name Role Phone Va Glez MD Primary Care Provider Va Glez MD Unavailable Christy CampuzanoC Unavailable [phone] Hans Cannon MD Unavailable Estella Hassan [facility] Unavailable [phone] Josh Cordero MD, Madhuri Unavailable [phone] John Webb MD Unavailable John Webb MD Unavailable Estella Hassan [facility] Unavailable Lindsay Carey OD Unavailable Richard Kam MD Unavailable Gaby Vila DO Unavailable [phone] Rosemarie cMdowell RN Unavailable Mitra Kendall MAGNETIC PROSPECTING SUPERVISOR Unavailable [phone] Lizet Mann PA-C Unavailable Ravi Brownlee MD Unavailable Manuel Ahn OD Unavailable Thalia Charles [facility] Unavailable [phone] Gaurav Valenzuela SPECIAL PROJECTS MANAGER GERIATRIC CASE MANAGER Unavailable [phone] Debbie Mann MD Unavailable [phone] Hakeem Chacko MB Unavailable Debbie Mann MD Unavailable [phone] Timothy Tejada MD Unavailable [phone] Timothy Tejada MD Unavailable [phone] Elsie Roberts SPECIAL PROJECTS MANAGER GERIATRIC CASE MANAGER Unavailable + Cristy Morton MD Unavailable [phone] Georgie Anguiano PA-C Unavailable [phone] Encounter Details Date Type Department Care Team (Late st Contact Info) Description 10/25/2024 MyC Medical Advice [facility] [address] [address] Ilene Guerra Social History Tobacco Use Types [...] re latives? 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 Gender Identity Not on file Sexual Orientation Not on file Occupation Industry Job Start Date Job End Date Not on file Not on file Not on file Not on file documented as of this encounter Plan of Treatment Upcoming Encounters Date Type Department Care Team (Late st Contact Info) Description 12/11/2024 2:10 PM CDT Therapy Visit [place] [address] [place] [address] Shanta Cooper, PT 12/14/2024 11:20 AM CDT Office Visit [address] [address] Lizet Mann PA-C [address] [place] [address] 12/17/2024 2:10 PM CDT Office Visit [facility] Orthopedic [address] [place] [address] Richard Kam MD [address] [place] [address] 12/19/2024 8:20 AM CDT Therapy Visit [place] [address] [place] [phone] Shanta Cooper, PT 12/24/2024 5:00 PM CDT Therapy Visit [place] [address] [place] [address] Pattie Casillas, PT 12/25/2024 10:20 AM CDT Therapy Visit [place] [address] [place] [phone] Shanta Cooper, PT 01/03/2025 1:00 PM CDT Office Visit [facility] [address] [place] [phone] Estella Hassan, [facility] [address] [place] [address] 01/03/2025 1:30 PM CDT Office Visit [facility] [address] [place] [phone] [place] [address] [place], [place] [phone] 01/08/2025 1:15 PM CDT Office Visit [facility] 2945 [facility] 200 [place] [address] Hakeem Chacko MBBS [address] [place] [address] Scheduled Procedures Name Priority Associated Diagnoses Date/Ti [...] job and will access resources that the [employer] offers. . Sarted new job 4. Continue [...] by household income. 2. I will contact [employer] [facility] to ask about medicare plans and if there are saving programs I qualify for by by calling [phone]. 3. I will see if I am eligible for unemployment after losing my job. I will call [phone] to ask for assistance with unemployment application. 4. I will apply for jobs. I will work with [employer] in finding a job (Empowerment.) 5. I will access [employer] and ask about financial resources (such [...] I will continue working with therapist at [place] [facility]. 2. I will establish with Psychiatry. Planning to schedule with Ronnie. 3. I will meet with community channel worker Manjula Gresham. 4. I will look in to attending an IOP program. I will discuss with my [place] mental Health therapist and number provided for [facility] Behavioral Access - [phone] to schedule assessment fr IOP program. 5. I will go to [facility] if I have concerning mental health symptoms. 6. I will access [facility] if needed by calling [phone]. 7. I will consider calling [facility] Adult Mental health intake at [phone]. documented as of this encounter Visit Diagnoses [...] documented as of this encounter Care Teams Legal Archivist Relationship Specialty [place] [address] [place] [address] PCP - General Family Practice 07/11/14 [place] [address] [place] [address] Assigned PCP 12/16/11 Christy Campuzano PA-C [address] [place] [address] 197952 Referring Physician Family Medicine 04/22/20 [place] [address] [place] [address] 742342 Resident Pulmonary Disease 04/22/20 Estella Hassan, [facility] [address] [place] [address] Pharmacist Pharmacist 05/26/20 Elaina Moreno MD 909 [place] [address] Cardiovascular & Thoracic Surgery 08/06/20 John Webb MD [address] [id number] Cardiovascular Disease 08/25/21 John Webb MD [address] 383645 Cardiovascular Disease 08/25/21 Estella Hassan, [facility] 30[address] [place] [address] Assigned MTM Pharmacist 12/09/21 [place] [address] [place] [address] [place] [address] Ophthalmology 01/29/22 Richard Kam MD [address] [place] [address] 576255 Assigned Musculoskeletal Provider 08/14/22 [place] [address] [address]2987 Assigned Neuroscience Provider 01/01/23 12/03/24 Rosemarie Mcdowell, RN Solar Power Installer Diabetes Education 03/17/23 Mitra Kendall, MAGNETIC PROSPECTING SUPERVISOR Lead Testing Consultant Primary Care - CC 12/12/23 Lizet Mann PA-C [address] [place] [address] Assigned Cancer Care Provider 01/04/24 Ravi Brownlee MD [address] [place] [address] Assigned Pulmonology Provider 01/04/24 Manuel Ahn OD [address] [place] [address] Assistant Golf Professional 01/05/24 Thalia Charles [facility] [address] [place], [place] [phone] Pharmacist Pharmacy 01/26/24 Gaurav Valenzuela APRN GERIATRIC CASE MANAGER 606 [facility] 106 [place] [address] Assigned Sleep Provider 02/04/24 Debbie Mann MD 1600 [facility] 200 [place], [place] [phone] Cardiovascular Disease 02/24/24 Hakeem Chacko MBBS 2945 [place], [place] [address] Assigned Rheumatology Provider 04/05/24 Debbie Mann MD 1600 [facility] 200 [place], [place] [phone] Assigned Heart and Vascular Provider 05/06/24 Timothy Tejada MD 6341 [facility] [place] [phone] Ophthalmology 05/29/24 Timothy Tejada MD 6341 [place] [phone] Assigned Surgical Provider 06/03/24 Elsie Roberts APRN GERIATRIC CASE MANAGER 1600 [facility] [address] [place] [address] Nurse Practitioner Pain Medicine 10/16/24 Cristy Morton MD [facility] [place] [id number] Assigned Pediatric Specialist Provider 11/03/24 Georgie Anguiano PA-C [address] 819715 Assigned Neuroscience Provider 12/04/24 documented as of this encounter
--- OUTSIDE RECORDS SUMMARY | 2024-12-06 00:35 | XMS_ITS | Encounter Summary ---
Author Organization [place] Address [address] [place] [address] Care Team Providers Care Barrel Straightener Name Role Phone Va Glez MD Primary Care Provider Va Glez MD Unavailable Kerry Bernal RN Unavailable Ravi Barillas DPM Unavailable [phone] Christy Campuzano PA-C Unavailable [phone] Hans Cannon MD Unavailable [phone] Mitra Kendall HAND II CUTTER Unavailable Burt Jovel MD Unavailable Estella Hasasn [facility] Unavailable Reji Chavez MD Unavailable Josh Cordero MD, Madhuri Unavailable [phone] Josh Cordero MD, Madhuri Unavailable [phone] Kelsi Hassan MD Unavailable [phone] John Webb MD Unavailable John Webb MD Unavailable [phone] Estella Hassan [facility] Unavailable Nav Hughes MD Unavailable [phone] Cassandra Mendoza MD Unavailable Estella Hassan RPH Unavailable Mitra Kendall HAND II CUTTER Unavailable Aurelio Lindsay Kenzie OD Unavailable Ravi Brownlee MD Unavailable Kye Arabella MA Unavailable [phone] Richard Kam MD Unavailable Marisol Patel RPH Unavailable Gaby Vila DO Unavailable Rosemarie Mcdowell RN Unavailable Ravi Brownlee MD Unavailable Mitra Kendall HAND II CUTTER Unavailable Lizet MannC Unavailable Ravi Brownlee MD Unavailable Nav Hughes MD Unavailable [phone] Manuel Ahn OD Unavailable Kye Arabella MA Unavailable [phone] Thalia Charles RP Unavailable Gaurav Valenzuela APRN STAFF FIELD ENGINEER Unavailable Manuel Ahn OD Unavailable Debbie Mann MD Unavailable Hakeem Chacko Unavailable Debbie Mann MD Unavailable Timothy Tjeada MD Unavailable Timothy Tejada MD Unavailable Elsie Roberts APRN STAFF FIELD ENGINEER Unavailable + Cristy Morton MD Unavailable Georgie Anguiano PA-C Unavailable [phone] Encounter Details Date Type Department Care Team (Late st Contact Info) Description 06/09/2020 MyC Medical Advice [address] [address] Estella Hassan, [facility] [address] [place] [address] Social History Tobacco Use Types Packs/Day Years [...] Answer Date Recorded PHQ-2 Score 0 06/05/2020 [facility] of Occupat ional Health - Occupational Stress [...] on file 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 [address] [place] [phone] Shanta Cooper PT 12/14/2024 11:20 AM CDT Office Visit [facility] [address] [facility] [place] [phone] Lizet Mann PA-C [address] [facility] [place] [address] 12/17/2024 2:10 PM CDT Office Visit [facility] 9[address] [facility] 4th [place] [address] Richard Kam MD [address] [place] [address] 12/19/2024 8:20 AM CDT Therapy Visit [address] [address] Shanta Cooper, PT 12/24/2024 5:00 PM CDT Therapy Visit [address] [address] Pattie Casillas, PT 12/25/2024 10:20 AM CDT Therapy Visit [address] [address] Shanta Cooper, PT 01/03/2025 1:00 PM CDT Office Visit [address] [phone] Estella Hassan, [facility] [address] [place] [address] 01/03/2025 1:30 PM CDT Office Visit [address] [address] Va Glez MD [address] [place] [address] [id number] 01/08/2025 1:15 PM CDT Office Visit [address] [phone] Hakeem Chacko MBBS [address] [place] [address] Scheduled Procedures Name Priority Associated Diagnoses Date/Ti me INJECTION, EPIDURAL, TRANSFO RAMINAL APPROACH Cervical radiculitis RELEASE, CARPAL TUNNEL, ENDOSCOPIC Right carpal tunnel syndrome documented as of this encounter Visit Diagnoses Not on filedocumented in this encounter Additional Health Concerns Infection Onset Date Last Indicated Resolved Time Rule Out COVID-19 06/22/2021 06/22/2021 06/23/2021 8:58 PM CDT Rule Out COVID-19 01/22/2022 01/22/2022 01/24/2022 1:05 PM PIER RUNNER Rule Out COVID-19 01/25/2022 01/25/2022 01/25/2022 5:21 AM PIER RUNNER Influenza 01/25/2022 01/25/2022 02/01/2022 11:4 1 PM PIER RUNNER Rule Out COVID-19 07/29/2022 07/29/2022 07/31/2022 11:17 AM CDT Rule Out COVID-19 03/23/2023 03/23/2023 03/23/2023 6:30 PM PIER RUNNER COVID-19 03/23/2023 03/23/2023 04/13/2023 11:4 0 PM PIER RUNNER Rule Out COVID-19 06/05/2023 06/05/2023 06/05/2023 5:53 PM CDT Rule Out COVID-19 11/06/2023 11/06/2023 11/06/2023 11:05 PM CDT Rule Out COVID-19 11/20/2023 11/20/2023 11/20/2023 6:43 PM CDT Rule Out COVID-19 12/27/2023 12/27/2023 12/29/2023 1:37 PM CDT Rule Out COVID-19 03/01/2024 03/01/2024 03/01/2024 1:11 PM PIER RUNNER Rule Out COVID-19 07/18/2024 07/18/2024 07/19/2024 5:52 PM CDT Rule Out COVID-19 10/17/2024 10/17/2024 10/17/2024 11:23 PM CDT Rule Out C-difficile 11/04/2024 11/04/2024 025 1:55 AM CDT Assessment Noted Time PHQ-9 Depression Total Score: 2 06/06/19 21 12:47 PM CDT documented as of this encounter Care Teams Barrel Straightener Relationship Specialty [place] [address] [place] [address] PCP - General Family Practice 07/11/14 [place] [address] [place] [address] Assigned PCP 12/16/11 Kerry Bernal RN Personal Advocate & Liaison (PAL) 01/08/19 07/10/23 Ravi Barillas DPM [id number] [place] [address] 300 [place] [address] Assigned Musculoskeletal Provider 03/23/20 10/30/21 Christy Campuzano PA-C [address] [place] [address] 740052 Referring Physician Family Medicine 04/22/20 Hans Cannon MD [address] [place] [address] Resident Pulmonary Disease 04/22/20 Mitra Kendall, HAND II CUTTER Lead Clothing Patternmaker Primary Care - CC 01/08/1901/12 Burt Jovel MD Internal Medicine 05/08/20 12/13/23 Estella Hassan, [facility] [address] [place] [address] Pharmacist Pharmacist 05/26/20 Reji Chavez MD [address] [facility] [address] [place] [phone] Assigned Heart and Vascular Provider 05/18/20 10/30/21 Elaina Moreno MD [address] [place] [address] Assigned Surgical Provider 05/18/20 11/19/22 Elaian Moreno MD [address] [place] [address] Cardiovascular & Thoracic Surgery 08/06/20 Kelsi Hassan MD [address] [place] [address] Assigned Pulmonology Provider 06/28/21 02/05/22 John Webb MD [address] [address] Cardiovascular Disease 08/25/21 John Webb MD [address] 777135 Cardiovascular Disease 08/25/21 Estella Hassna, [facility] [address] [place] [address] Assigned MTM Pharmacist 09/05/21 Nav Hughes MD [address] [facility] [address] [place] [address] Assigned Heart and Vascular Provider 10/31/21 09/03/23 Cassandra Mendoza MD ORTHOPAEDIC SURGERY [address] [address] Assigned Musculoskeletal Provider 10/31/21 08/13/22 Estella Hassan, [facility] [address] [place] [address] Assigned MTM Pharmacist 12/09/21 Mitra Kendall, [facility] Lead Clothing Patternmaker Primary Care - CC 01/26/2210/28 Lindsay Carey OD 3305 [facility] [place] [address] Ophthalmology 01/29/22 Ravi Brownlee MD 420 [facility] 276 [place] [address] Assigned Pulmonology Provider 02/06/22 09/03/23 Arabella Fishman MA Financial Resource Worker 02/22/22 02/23/22 Richard Kam MD 500 [place] [address] Assigned Musculoskeletal Provider 08/14/22 Marisol Patel, [facility] [address] [facility] [place] [address] Pharmacist Pharmacist 11/22/22 01/09/23 [place] [address] BC PENA, [address] [address] Assigned Neuroscience Provider 01/01/23 12/03/24 Rosemarie Mcdowell, RN Information Systems Security Analyst Diabetes Education 03/17/23 Ravi Brownlee MD [address] [place] [address] 127705 Assigned Heart and Vascular Provider 09/04/23 01/03/24 Mitra Kendall, HAND II CUTTER Lead Clothing Patternmaker Primary Care - CC 12/12/23 Lizet Mann PA-C [address] [place], [place] [address] [address] Assigned Cancer Care Provider 01/04/24 Ravi Brownlee MD [address] [place] [address] Assigned Pulmonology Provider 01/04/24 Nav Hughes MD [address] [place] [address] [address] [place] [address] Assigned Heart and Vascular Provider 01/04/24 05/05/24 Manuel Ahn OD 6341 [facility] [place] [address] Yard Labor Supervisor 01/05/24 Arabella Fishman MA Financial Resource Worker 01/06/24 03/19/24 Thalia Charles [facility] [address] [place] [address] Pharmacist Pharmacy 01/26/24 Gaurav Valenzuela APRN STAFF FIELD ENGINEER [address] [facility] 106 [place], [place] 427374 Assigned Sleep Provider 02/04/24 Manuel Ahn OD 6341 [place], [place] 886012 Assigned Surgical Provider 02/04/24 06/02/24 Debbie Mann MD 1600 [facility] 200 [place] [address] Cardiovascular Disease 02/24/24 Hakeem Chacko MBBS 2945 [place] [address] Assigned Rheumatology Provider 04/05/24 Debbie Mann MD 1600 [facility] 200 [place] [address] Assigned Heart and Vascular Provider 05/06/24 Timothy Tejada MD 6341 [place] [phone] Ophthalmology 05/29/24 Timothy Tejada MD [address] [place] [address] Assigned Surgical Provider 06/03/24 Elsie Roberts APRN STAFF FIELD ENGINEER 1600 [facility] [address] [place] [address] Nurse Practitioner Pain Medicine 10/16/24 Cristy Morton MD 1440 [facility] [place] [address] Assigned Pediatric Specialist Provider 11/03/24 Georgie Anguiano PA-C [address] [address] Assigned Neuroscience Provider 12/04/24 documented as of this encounter
--- OUTSIDE RECORDS SUMMARY | 2024-12-06 00:35 | XMS_ITS | Encounter Summary ---
Author Organization [facility] Address [address] [place] [address] Care Team Providers Care Varnishing Machine Operator Name Role Phone Va Glez MD Primary Care Provider [phone] Va Glez MD Unavailable Christy CampuzanoC Unavailable [phone] Hans Cannon MD Unavailable Estella Hassan [facility] Unavailable Josh Cordero MD, Madhuri Unavailable [phone] John Webb MD Unavailable [phone] John Webb MD Unavailable Estella Hassan [facility] Unavailable Lindsay Carey OD Unavailable Richard Kam MD Unavailable Gaby Vila DO Unavailable Rosemarie Mcdowell RN Unavailable Mitra Kendall HAT SPRAYER Unavailable [phone] Lizet Mann PA-C Unavailable Ravi Brownlee MD Unavailable Manuel Ahn OD Unavailable Thalia Charles [facility] Unavailable [phone] Gaurav Valenzuela SPORTS WRITER REAL ESTATE ASSOCIATE ATTORNEY Unavailable [phone] Debbie Mann MD Unavailable [phone] Hakeem Chacko MB Unavailable Debbie Mann MD Unavailable [phone] Timothy Tejada MD Unavailable [phone] Timothy Tejada MD Unavailable [phone] Alejandra Elsie Jennifer SPORTS WRITER REAL ESTATE ASSOCIATE ATTORNEY Unavailable + Encounter Details Date Type Department Care Team (Latest Contact Info) Description 10/28/2024 Travel Social History Tobacco Use Types Packs/Day [...] Answer Date Recorded PHQ-2 Score 2 09/27/2024 [facility] [place] of Occupat ional Health - Occupational Stress [...] 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, 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.) Yes 09/27/2024 Are you worried [...] on file 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opedic [facility] [address] [place] [address] 4th [place] [phone] Richard Kam MD [address] [place] [address] 12/19/2024 8:20 AM CDT Therapy Visit [address] [phone] Shanta Cooper, PT 12/24/2024 5:00 PM CDT Therapy Visit [address] [phone] Pattie Csaillas, PT 12/25/2024 10:20 AM CDT Therapy Visit [address] [phone] Shanta Cooper, PT 01/03/2025 1:00 PM CDT Office Visit [facility] [address] [place] [phone] Estella Hassan, [facility] 3033 [place] [address] 01/03/2025 1:30 PM CDT Office Visit [facility] [address] [place] [phone] [place] [address] [place] [address] 01/08/2025 1:15 PM CDT Office Visit [facility] 2945 [facility] 200 [place] [address] Hakeem Chacko MBBS 2945 [place] [address] Scheduled Procedures Name Priority Associated Diagnoses Date/Ti [...] for health insurance by looking in to [employer] and talking with a FRW. Completed 3. I will look for a new job and will access resources that the [facility] offers. . Sarted new job 4. [...] by household income. 2. I will contact [employer] [facility] to ask about medicare plans and if there are saving programs I qualify for by by calling [phone]. 3. I will see if I am eligible for unemployment after losing my job. I will call [phone] to ask for assistance with unemployment application. 4. I will apply for jobs. I will work with [employer] [facility] in finding a job (Empowerment.) 5. I will access [employer] and ask about financial resources (such as [...] Ronnie. 3. I will meet with community set up worker Manjula Gresham. 4. I will look in to attending an IOP program. [facility] and number provided for [facility] Behavioral Access - [phone] to schedule assessment fr IOP program. 5. I will go to [facility] if I have concerning mental health symptoms. 6. I will access [facility] Crisis if needed by calling [phone]. 7. I will consider calling [facility] Adult Mental health intake at [phone]. documented as of this encounter Visit Diagnoses [...] [facility] 3. I will update [facility] Team at outreach. Health Maintenance Due or Overdue 12/16/2023 Patient expresses financial resource strain 12/13 Mental Health Symptoms Need Improvement 04/05/19 Assessment Noted Time PHQ-9 Depression Total Score: 7 09/28/19 11:01 AM CDT documented as of this encounter Care Teams Varnishing Machine Operator Relationship Specialty [place] [address] [place], [place] [id number] PCP - General Family Practice 07/11/14 [place] [address] [place], [place] [id number] Assigned PCP 12/16/11 Christy Campuzano PA-C [address] [place] [address] [id number] Referring Physician Family Medicine 04/22/20 Hans Cannon MD [address] [place] [address] 171622 Resident Pulmonary Disease 04/22/20 Estella Hassan, [facility] [place], [place] [phone] Pharmacist Pharmacist 05/26/20 Elaina Moreno MD [address] [place], [place] 261015 Cardiovascular & Thoracic Surgery 08/06/20 John Webb MD [address] 890055 Cardiovascular Disease 08/25/21 John Webb MD [address] [id number] Cardiovascular Disease 08/25/21 Estella Hassan, [facility] [address] [place] [address] Assigned MTM Pharmacist 12/09/21 Lindsay Carey OD [address] [facility] [address] [address] Ophthalmology 01/29/22 Richard Kam MD [address] [place] [address] 129115 Assigned Musculoskeletal Provider 08/14/22 [place] [address] [place] [address] 779867 Assigned Neuroscience Provider 01/01/23 12/03/24 Rosemarie Mcdowell RN Tower Helper Diabetes Education 03/17/23 Mitra Kendall, HAT SPRAYER Lead Precipitation Equipment Tender Primary Care - CC 12/12/23 Lizet Mann PA-C [address] [place] [address] Assigned Cancer Care Provider 01/04/24 Ravi Brownlee MD [address] [place] [address] Assigned Pulmonology Provider 01/04/24 Manuel Ahn OD [address]341 [place] [address] Senior Financial 01/05/24 Thalia Charles, [facility] [address] [place] [address] Pharmacist Pharmacy 01/26/24 Gaurav Valenzuela APRN REAL ESTATE ASSOCIATE ATTORNEY 606 [facility] 106 [place] [address] Assigned Sleep Provider 02/04/24 Debbie Mann MD 1600 [facility] 200 [place] [address] Cardiovascular Disease 02/24/24 Hakeem Chacko MBBS 29[address] [place] [address] Assigned Rheumatology Provider 04/05/24 Debbie Mann MD 1600 [facility] 200 [place] [address] Assigned Heart and Vascular Provider 05/06/24 Timothy Tejada MD 6341 [place] [phone] Ophthalmology 05/29/24 Timothy Tejada MD 6341 [place] [phone] Assigned Surgical Provider 06/03/24 Elsie Roberts APRN REAL ESTATE ASSOCIATE ATTORNEY 1600 [facility] 101 [place], [place] [phone] Nurse Practitioner Pain Medicine 10/16/24 documented as of this encounter
--- OUTSIDE RECORDS SUMMARY | 2024-12-06 00:36 | XMS_ITS | Encounter Summary ---
Author Organization [facility] Address [address] [place] [address] Care Team Providers Care Lowerator Operator Name Role Phone Va Glez MD Primary Care Provider [phone] Va Glez MD Unavailable Kerry Bernal RN Unavailable Ravi Barillas DPM Unavailable [phone] Christy Campuzano PA-C Unavailable Hans Cannon MD Unavailable Mitra Kendall POWERBUILDER Unavailable Burt Jovel MD Unavailable [phone] Estella Hassan [facility] Unavailable Reji Chavez MD Unavailable Josh Cordero MD, Madhuri Unavailable [phone] Josh Cordero MD, Madhuri Unavailable [phone] Kelsi Hassan MD Unavailable [phone] John Webb MD Unavailable [phone] John Webb MD Unavailable Estella Hassan [facility] Unavailable [phone] Nav Hughes MD Unavailable [phone] Cassandra Mendoza MD Unavailable Estella Hassan RPH Unavailable Mitra Kendall POWERBUILDER Unavailable Aurelio Lindsay Kenzie OD Unavailable Ravi Brownlee MD Unavailable Kye Arabella MA Unavailable [phone] Richard Kam MD Unavailable Marisol Patel RPH Unavailable Gaby Vila DO Unavailable Rosemarie Mcdowell RN Unavailable Ravi Brownlee MD Unavailable Mitra Kendall POWERBUILDER Unavailable Lizet MannC Unavailable Ravi Brownlee MD Unavailable Nav Hughes MD Unavailable [phone] Manuel Ahn OD Unavailable Kye Arabella MA Unavailable [phone] Thalia Charles RP Unavailable Gaurav Valenzuela APRN DRILLING FIELD OPERATOR Unavailable Manuel Ahn OD Unavailable Debbie Mann MD Unavailable Hakeem Chacko Unavailable Debbie Mann MD Unavailable Timothy Tejada MD Unavailable Timothy Tejada MD Unavailable Elsie Roberts APRN DRILLING FIELD OPERATOR Unavailable + Cristy Morton MD Unavailable [phone] Georgie Anguiano PA-C Unavailable [phone] Encounter Details Date Type Department Care Team (Late st Contact Info) Description 06/09/2020 [facility] Medical Advice [address] [address] Estella Hassan, [facility] [address] [place] [address] Social History Tobacco Use Types Packs/Day Years [...] Date Recorded PHQ-2 Score 0 06/05/2020 [facility] of Occupat ional Health - Occupational Stress [...] on file Legal 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 Gender Identity Not on file Sexual [...] Description 12/11/2024 2:10 PM CDT Therapy Visit [facility] [address] [place] [phone] Shanta Cooper PT 12/14/2024 11:20 AM CDT Office Visit [facility] [address] [facility] [phone] Lizet Mann PA-C [address] [facility] [place] [address] 12/17/2024 2:10 PM CDT Office Visit [facility] Orthopedic [facility] 909 [facility] 4th [place] [address] Richard Kam MD [address] [place] [address] 12/19/2024 8:20 AM CDT Therapy Visit [address] [address] Shanta Cooper, PT 12/24/2024 5:00 PM CDT Therapy Visit [address] [address] Pattie Casillas, PT 12/25/2024 10:20 AM CDT Therapy Visit [address] [address] Shanta Cooper, PT 01/03/2025 1:00 PM CDT Office Visit [address] [phone] Estella Hassan, [facility] [address] [place] [address] 01/03/2025 1:30 PM CDT Office Visit [address] [address]83 aV Glez MD [address] [place] [address] 63454124 01/08/2025 1:15 PM CDT Office Visit [address] [phone] Hakeem Chacko MBBS [address] [place] [address] Scheduled Procedures Name Priority Associated Diagnoses Date/Ti me INJECTION, EPIDURAL, TRANSFO RAMINAL APPROACH Cervical radiculitis RELEASE, CARPAL TUNNEL, ENDOSCOPIC Right carpal tunnel syndrome documented as of this encounter Visit Diagnoses Not on filedocumented in this encounter Additional Health Concerns Infection Onset Date Last Indicated Resolved Time Rule Out COVID-19 06/22/2021 06/22/2021 06/23/2021 8:58 PM CDT Rule Out COVID-19 01/22/2022 01/22/2022 01/24/2022 1:05 PM HEMODIALYSIS RN Rule Out COVID-19 01/25/2022 01/25/2022 01/25/2022 5:21 AM HEMODIALYSIS RN Influenza 01/25/2022 01/25/2022 02/01/2022 11:4 1 PM HEMODIALYSIS RN Rule Out COVID-19 07/29/2022 07/29/2022 07/31/2022 11:17 AM CDT Rule Out COVID-19 03/23/2023 03/23/2023 03/23/2023 6:30 PM HEMODIALYSIS RN COVID-19 03/23/2023 03/23/2023 04/13/2023 11:4 0 PM HEMODIALYSIS RN Rule Out COVID-19 06/05/2023 06/05/2023 06/05/2023 5:53 PM CDT Rule Out COVID-19 11/06/2023 11/06/2023 11/06/2023 11:05 PM CDT Rule Out COVID-19 11/20/2023 11/20/2023 11/20/2023 6:43 PM CDT Rule Out COVID-19 12/27/2023 12/27/2023 12/29/2023 1:37 PM CDT Rule Out COVID-19 03/01/2024 03/01/2024 03/01/2024 1:11 PM HEMODIALYSIS RN Rule Out COVID-19 07/18/2024 07/18/2024 07/19/2024 5:52 PM CDT Rule Out COVID-19 10/17/2024 10/17/2024 10/17/2024 11:23 PM CDT Rule Out C-difficile 11/04/2024 11/04/2024 025 1:55 AM CDT Assessment Noted Time PHQ-9 Depression Total Score: 2 06/06/19 21 12:47 PM CDT documented as of this encounter Care Teams Lowerator Operator Relationship Specialty [place] [address] [place] [address] PCP - General Family Practice 07/11/14 [place] [address] [place] [address] Assigned PCP 12/16/11 Kerry Bernal RN Personal Advocate & Liaison (PAL) 01/08/19 07/10/23 Ravi Barillas DPM [id number] [place] [address] 300 [place] [address] Assigned Musculoskeletal Provider 03/23/20 10/30/21 Christy Campuzano PA-C [address] [place] [address] 839562 Referring Physician Family Medicine 04/22/20 Hans Cannon MD [address] [place] [address] Resident Pulmonary Disease 04/22/20 Mitra Kendall, POWERBUILDER Lead Vp Integrity Primary Care - CC 01/08/1901/12 Burt Jovel MD Internal Medicine 05/08/20 12/13/23 Estella Hassan, [facility] [address] [place] [address] Pharmacist Pharmacist 05/26/20 Reji Chavez MD [address] [facility] [address] [place] [address] Assigned Heart and Vascular Provider 05/18/20 10/30/21 Elaina Moreno MD [address] [place] [address] Assigned Surgical Provider 05/18/20 11/19/22 Elaina Moreno MD [address] [place] [address] Cardiovascular & Thoracic Surgery 08/06/20 Kelsi Hassan MD [address] [place] [address] Assigned Pulmonology Provider 06/28/21 02/05/22 John Webb MD [address] [address] Cardiovascular Disease 08/25/21 John Webb MD [address] 818165 Cardiovascular Disease 08/25/21 Estella Hassan, [facility] [address] [place] [address] Assigned MTM Pharmacist 09/05/21 Nav Hughes MD [address] [facility] [address] [place] [address] Assigned Heart and Vascular Provider 10/31/21 09/03/23 Cassandra Mendoza MD ORTHOPAEDIC SURGERY [address] [address] Assigned Musculoskeletal Provider 10/31/21 08/13/22 Estella Hassan, [facility] [address] [place] [address] Assigned MTM Pharmacist 12/09/21 Mitra Kendall, [facility] Lead Vp Integrity Primary Care - CC 01/26/2210/28 Lindsay Carey OD 3305 [facility] [address] [address] Ophthalmology 01/29/22 Ravi Brownlee MD 420 [facility] 276 [place] [address] Assigned Pulmonology Provider 02/06/22 09/03/23 Arabella Fishman MA Financial Resource Worker 02/22/22 02/23/22 Richard Kam MD 500 [place] [address] Assigned Musculoskeletal Provider 08/14/22 Marisol Patel, [facility] [address] [place] [place] [address] Pharmacist Pharmacist 11/22/22 01/09/23 [place] [address] [place], [address] [address] Assigned Neuroscience Provider 01/01/23 12/03/24 Rosemarie Mcdowell, RN Communications Systems Engineer Diabetes Education 03/17/23 Ravi Brownlee MD [address] [place] [address] 218835 Assigned Heart and Vascular Provider 09/04/23 01/03/24 Mitra Kendall, POWERBUILDER Lead Vp Integrity Primary Care - CC 12/12/23 Lizet Mann PA-C [address] [place], [place] [address] [address] Assigned Cancer Care Provider 01/04/24 Ravi Brownlee MD [address] [place] [address] Assigned Pulmonology Provider 01/04/24 Nav Hughes MD [address] [place] [address] [address] [address] Assigned Heart and Vascular Provider 01/04/24 05/05/24 Manuel Ahn OD 6341 [facility] [place] [place] [address] Sueding Machine Tender 01/05/24 Arabella Fishman MA Financial Resource Worker 01/06/24 03/19/24 Thalia Charles [facility] [address] [place] [address] Pharmacist Pharmacy 01/26/24 Gaurav Valenzuela APRN DRILLING FIELD OPERATOR [address] [facility] 106 [place], [place] 927254 Assigned Sleep Provider 02/04/24 Manuel Ahn OD 6341 [place], [place] 783032 Assigned Surgical Provider 02/04/24 06/02/24 Debbie Mann MD 1600 [facility] 200 [place] [address] Cardiovascular Disease 02/24/24 Hakeem Chacko MBBS [address] [place] [address] Assigned Rheumatology Provider 04/05/24 Debbie Mann MD 1600 [facility] 200 [place] [address] Assigned Heart and Vascular Provider 05/06/24 Timothy Tejada MD 6341 [place] [address] Ophthalmology 05/29/24 Timothy Tejada MD [address] [place] [address] Assigned Surgical Provider 06/03/24 Elsie Roberts APRN DRILLING FIELD OPERATOR 1600 [facility] [place] [address] [address] Nurse Practitioner Pain Medicine 10/16/24 Cristy Morton MD 1440 [facility] [place] [place] [address] Assigned Pediatric Specialist Provider 11/03/24 Georgie Anguiano PA-C [address] [address] Assigned Neuroscience Provider 12/04/24 documented as of this encounter
--- OUTSIDE RECORDS SUMMARY | 2024-12-06 00:36 | XMS_ITS | Encounter Summary ---
Author Organization [facility] Address [address] [place] [address] Care Team Providers Care Wireless Manager Name Role Phone Va Glez MD Primary Care Provider Va Glez MD Unavailable Kerry Bernal RN Unavailable Ravi Barillas DPM Unavailable [phone] Christy Campuzano PA-C Unavailable [phone] Hans Cannon MD Unavailable [phone] Mitra Kendall HARDWARE ENGINEER Unavailable Burt Jovel MD Unavailable Estella Hassan [facility] Unavailable [phone] Reji Chavez MD Unavailable [phone] Johs Cordero MD, Madhuri Unavailable [phone] Josh Cordero MD, Madhuri Unavailable [phone] Kelsi Hassan MD Unavailable [phone] John Webb MD Unavailable John Webb MD Unavailable [phone] Estella Hassan [facility] Unavailable Nav Hughes MD Unavailable [phone] Cassandra Mendoza MD Unavailable Estella Hassan RPH Unavailable Mitra Kendall HARDWARE ENGINEER Unavailable Aurelio Lindsay Kenzie OD Unavailable Ravi Brownlee MD Unavailable Kye Arabella MA Unavailable [phone] Richard Kam MD Unavailable Marisol Patel RPH Unavailable Gaby Vila DO Unavailable Rosemarie Mcdowell RN Unavailable Ravi Brownlee MD Unavailable Mitra Kendall HARDWARE ENGINEER Unavailable Lizet MannC Unavailable Ravi Brownlee MD Unavailable Nav Hughes MD Unavailable [phone] Manuel Ahn OD Unavailable Kye Arabella MA Unavailable [phone] Thalia Charles RP Unavailable Gaurav Valenzuela APRN DIRECTOR [facility] Unavailable Manuel Ahn OD Unavailable Debbie Mann MD Unavailable Hakeem Chacko Unavailable Debbie Mann MD Unavailable Timothy Tejada MD Unavailable Timothy Tejada MD Unavailable Elsie Roberts APRN DIRECTOR [facility] Unavailable + Cristy Morton MD Unavailable [phone] Georgie Anguiano PA-C Unavailable [phone] Encounter Details Date Type Department Care Team (Late st Contact Info) Description 06/13/2020 MyC Medical Advice [facility] Mental Health & Addiction [address] [address] Nilsa Harper LICSW [address], [address] [place], [place] [address] Social History Tobacco Use Types Packs/Day Years [...] Answer Date Recorded PHQ-2 Score 0 06/05/2020 [facility] of Occupat ional Health - Occupational Stress [...] on file 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 Gender Identity Not on file Sexual [...] Description 12/11/2024 2:10 PM CDT Therapy Visit [facility] Rehabilitation Services [address] [place] [address] Shanta Cooper, MOIZ 12/14/2024 11:20 AM CDT [facility] [address] [place] [address] Lizet Mann PA-C [address] [place] [address] 12/17/2024 2:10 PM CDT Office Visit [facility] Orthopedic [facility] 909 [facility] 4th [place] [address] Richard Kam MD [address] [place] [address] 12/19/2024 8:20 AM CDT Therapy Visit [address] [address] Shanta Cooper, PT 12/24/2024 5:00 PM CDT Therapy Visit [address] [address] Pattie Casillas, PT 12/25/2024 10:20 AM CDT Therapy Visit [address] [address] Shanta Cooper, PT 01/03/2025 1:00 PM CDT Office Visit [address] [phone] Estella Hassan, [facility] [address] [place] [address] 01/03/2025 1:30 PM CDT Office Visit [address] [phone] Va Glez MD [address] [place] [id number] 01/08/2025 1:15 PM CDT Office Visit [address] [phone] Hakeem Chacko MBBS [address] [place] [address] Scheduled Procedures Name Priority Associated Diagnoses Date/Ti me INJECTION, EPIDURAL, TRANSFO RAMINAL APPROACH Cervical radiculitis RELEASE, CARPAL TUNNEL, ENDOSCOPIC Right carpal tunnel syndrome documented as of this encounter Visit Diagnoses Not on filedocumented in this encounter Additional Health Concerns Infection Onset Date Last Indicated Resolved Time Rule Out COVID-19 06/22/2021 06/22/2021 06/23/2021 8:58 PM CDT Rule Out COVID-19 01/22/2022 01/22/2022 01/24/2022 1:05 PM COMMUNITY PROGRAM ASSISTANT Rule Out COVID-19 01/25/2022 01/25/2022 01/25/2022 5:21 AM COMMUNITY PROGRAM ASSISTANT Influenza 01/25/2022 01/25/2022 02/01/2022 11:4 1 PM COMMUNITY PROGRAM ASSISTANT Rule Out COVID-19 07/29/2022 07/29/2022 07/31/2022 11:17 AM CDT Rule Out COVID-19 03/23/2023 03/23/2023 03/23/2023 6:30 PM COMMUNITY PROGRAM ASSISTANT COVID-19 03/23/2023 03/23/2023 04/13/2023 11:4 0 PM COMMUNITY PROGRAM ASSISTANT Rule Out COVID-19 06/05/2023 06/05/2023 06/05/2023 5:53 PM CDT Rule Out COVID-19 11/06/2023 11/06/2023 11/06/2023 11:05 PM CDT Rule Out COVID-19 11/20/2023 11/20/2023 11/20/2023 6:43 PM CDT Rule Out COVID-19 12/27/2023 12/27/2023 12/29/2023 1:37 PM CDT Rule Out COVID-19 03/01/2024 03/01/2024 03/01/2024 1:11 PM COMMUNITY PROGRAM ASSISTANT Rule Out COVID-19 07/18/2024 07/18/2024 07/19/2024 5:52 PM CDT Rule Out COVID-19 10/17/2024 10/17/2024 10/17/2024 11:23 PM CDT Rule Out C-difficile 11/04/2024 11/04/2024 025 1:55 AM CDT Assessment Noted Time PHQ-9 Depression Total Score: 2 06/06/19 21 12:47 PM CDT documented as of this encounter Care Teams Wireless Manager Relationship Specialty [place] [address] [place] [address] PCP - General Family Practice 07/11/14 [place] [address] [place] [address] Assigned PCP 12/16/11 Kerry Bernal, INOCENCIO Personal Advocate & Liaison (PAL) 01/08/19 07/10/23 Ravi Barillas DPM [address] [address] Assigned Musculoskeletal Provider 03/23/20 10/30/21 Christy Campuzano PA-C [address] [place] [address] 519152 Referring Physician Family Medicine 04/22/20 Hans Cannon MD [address] [place] [address] Resident Pulmonary Disease 04/22/20 Mitra Kendall, HARDWARE ENGINEER Lead Solar Project Engineer Primary Care - CC 01/08/1901/12 Burt Jovel MD Internal Medicine 05/08/20 12/13/23 Estella Hassan, [facility] [address] [place] [address] Pharmacist Pharmacist 05/26/20 Reji Chavez MD [address] [place] [phone] Assigned Heart and Vascular Provider 05/18/20 10/30/21 Elaian Moreno MD [address] [place] [address] [id number] Assigned Surgical Provider 05/18/20 11/19/22 Elaina Moreno MD [address] [place] [address] 909905 Cardiovascular & Thoracic Surgery 08/06/20 Kelsi Hassan MD [address] [place] [address] Assigned Pulmonology Provider 06/28/21 02/05/22 John Webb MD [address] [address] Cardiovascular Disease 08/25/21 John Webb MD [address] 460545 Cardiovascular Disease 08/25/21 Estella Hassan, [facility] [address] [place] [address] Assigned MTM Pharmacist 09/05/21 Nav Hughes MD [address] [place] [address] Assigned Heart and Vascular Provider 10/31/21 09/03/23 Cassandra Mendoza MD ORTHOPAEDIC SURGERY [facility] [address] [address] Assigned Musculoskeletal Provider 10/31/21 08/13/22 Estella Hassan, [facility] [address] [place] [address] Assigned MTM Pharmacist 12/09/21 Mitra Kendall, [facility] Lead Solar Project Engineer Primary Care - CC 01/26/2210/28 Lindsay Carey OD 3305 [facility] [place] [place] [address] Ophthalmology 01/29/22 Ravi Brownlee MD [address] [address] Assigned Pulmonology Provider 02/06/22 09/03/23 Arabella Fishman MA Financial Resource Worker 02/22/22 02/23/22 Richard Kam MD 500 [place], [place] 885[address] Assigned Musculoskeletal Provider 08/14/22 Marisol Patel, [facility] [address] [id number] Pharmacist Pharmacist 11/22/22 01/09/23 [place] [address] [place], [address] 653087 Assigned Neuroscience Provider 01/01/23 12/03/24 Rosemarie Mcdowell, RN Traffic Inspector Diabetes Education 03/17/23 Ravi Brownlee MD [address] [place] [address] 877545 Assigned Heart and Vascular Provider 09/04/23 01/03/24 Mitra Kendall, [facility] Lead Solar Project Engineer Primary Care - CC 12/12/23 Lizet Mann PA-C [address] [place] [address] Assigned Cancer Care Provider 01/04/24 Ravi Brownlee MD [address] [place] [address] Assigned Pulmonology Provider 01/04/24 Nav Hughes MD [address] [place] [address] [address] 647955 Assigned Heart and Vascular Provider 01/04/24 05/05/24 Manuel Ahn OD 6341 [facility] [place] 314722 Jockey Valet 01/05/24 Arabella Fishman MA Financial Resource Worker 01/06/24 03/19/24 Thalia Charles [facility] [address] [place], [place] [phone] Pharmacist Pharmacy 01/26/24 Gaurav Valenzuela APRN DIRECTOR [facility] 606 [facility] [place] [address] [place] [address] Assigned Sleep Provider 02/04/24 Manuel Ahn OD 6341 [place], [place] 565142 Assigned Surgical Provider 02/04/24 06/02/24 Debbie Mann MD 1600 [facility] 200 [place] [address] Cardiovascular Disease 02/24/24 Hakeem Chacko MBBS [address] [place] [address] Assigned Rheumatology Provider 04/05/24 Debbie Mann MD 1600 [facility] [address] [place] [address] Assigned Heart and Vascular Provider 05/06/24 Timothy Tejada MD 6341 [place] [address] Ophthalmology 05/29/24 Timothy Tejada MD [address] [place] [address] Assigned Surgical Provider 06/03/24 Elsie Roberts APRN DIRECTOR [facility] 1600 [facility] [place] [address] [address] Nurse Practitioner Pain Medicine 10/16/24 Cristy Morton MD [address] [facility] [place] [id number] Assigned Pediatric Specialist Provider 11/03/24 Georgie Anguiano PA-C [address] [address] Assigned Neuroscience Provider 12/04/24 documented as of this encounter
--- OUTSIDE RECORDS SUMMARY | 2024-12-06 00:36 | XMS_ITS | Encounter Summary ---
Author Organization [facility] Address [address] [place] [address] Care Team Providers Care Leather Belt Loop Cutter Name Role Phone Va Glez MD Primary Care Provider Va Glez MD Unavailable Kerry Bernal RN Unavailable Ravi Barillas DPM Unavailable [phone] Christy Campuzano PA-C Unavailable [phone] Hans Cannon MD Unavailable Mitra Kendall ELECTRIC SCOOP OPERATOR Unavailable Burt Jovel MD Unavailable [phone] Estella Hassan [facility] Unavailable Reji Chavez MD Unavailable Josh Cordero MD, Madhuri Unavailable [phone] Josh Cordero MD, Madhuri Unavailable [phone] Kelsi Hassan MD Unavailable [phone] John Webb MD Unavailable John Webb MD Unavailable [phone] Estella Hassan [facility] Unavailable [phone] Nav Hughes MD Unavailable [phone] Cassandra Mendoza MD Unavailable Estella Hassan RPH Unavailable Mitra Kendall ELECTRIC SCOOP OPERATOR Unavailable Aurelio Lindsay Kenzie OD Unavailable Ravi Brownlee MD Unavailable Kye Arabella MA Unavailable [phone] Richard Kam MD Unavailable Marisol Patel RPH Unavailable Gaby Vila DO Unavailable Rosemarie Mcdowell RN Unavailable Ravi Brownlee MD Unavailable Mitra Kendall ELECTRIC SCOOP OPERATOR Unavailable Lizet MannC Unavailable Ravi Brownlee MD Unavailable Nav Hughes MD Unavailable [phone] Manuel Ahn OD Unavailable Kye Arabella MA Unavailable [phone] Thalia Charles RP Unavailable Gaurav Valenzuela APRN BEARING MACHINE OPERATOR Unavailable Manuel Ahn OD Unavailable Debbie Mann MD Unavailable Hakeem Chacko Unavailable Debbie Mann MD Unavailable Timothy Tejada MD Unavailable Timothy Tejada MD Unavailable Elsie Roberts APRN BEARING MACHINE OPERATOR Unavailable + Cristy Morton MD Unavailable Georgie Anguiano PA-C Unavailable [phone] Encounter Details Date Type Department Care Team (Late st Contact Info) Description 06/09/2020 MyC Medical [facility]ice [facility] [address] [address] Ravi Barillas, DENY [address] [facility] [address] [place] [address] Social History Tobacco Use Types [...] Answer Date Recorded PHQ-2 Score 0 06/05/2020 [facility] of Occupat ional Health - Occupational Stress [...] on file Legal 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 [address] [place] [address] Lizet Mann PA-C [address] [facility] [place] [address] 12/17/2024 2:10 PM CDT Office Visit [facility] Orthopedic [facility] 909 [facility] 4th [place] [address] Richard Kam MD [address] [place] [address] 12/19/2024 8:20 AM CDT Therapy Visit [address] [address] Shanta Cooper, PT 12/24/2024 5:00 PM CDT Therapy Visit [address] [address] Pattie Casillas, PT 12/25/2024 10:20 AM CDT Therapy Visit [address] [address] Shanta Cooper, PT 01/03/2025 1:00 PM CDT Office Visit [address] [address] Estella Hassan, [facility] [address] [place] [address] 01/03/2025 1:30 PM CDT Office Visit [address] [address] [place] [id number] [place] [address] 01/08/2025 1:15 PM CDT Office Visit [address] [phone] Hakeem Chacko MBBS [address] [place] [address] [place] [address] Scheduled Procedures Name Priority Associated Diagnoses Date/Ti me INJECTION, EPIDURAL, TRANSFO RAMINAL APPROACH Cervical radiculitis RELEASE, CARPAL TUNNEL, ENDOSCOPIC Right carpal tunnel syndrome documented as of this encounter Visit Diagnoses Not on filedocumented in this encounter Additional Health Concerns Infection Onset Date Last Indicated Resolved Time Rule Out COVID-19 06/22/2021 06/22/2021 06/23/2021 8:58 PM CDT Rule Out COVID-19 01/22/2022 01/22/2022 01/24/2022 1:05 PM POCKETS AND PIECES NECKTIE OPERATOR Rule Out COVID-19 01/25/2022 01/25/2022 01/25/2022 5:21 AM POCKETS AND PIECES NECKTIE OPERATOR Influenza 01/25/2022 01/25/2022 02/01/2022 11:4 1 PM POCKETS AND PIECES NECKTIE OPERATOR Rule Out COVID-19 07/29/2022 07/29/2022 07/31/2022 11:17 AM CDT Rule Out COVID-19 03/23/2023 03/23/2023 03/23/2023 6:30 PM POCKETS AND PIECES NECKTIE OPERATOR COVID-19 03/23/2023 03/23/2023 04/13/2023 11:4 0 PM POCKETS AND PIECES NECKTIE OPERATOR Rule Out COVID-19 06/05/2023 06/05/2023 06/05/2023 5:53 PM CDT Rule Out COVID-19 11/06/2023 11/06/2023 11/06/2023 11:05 PM CDT Rule Out COVID-19 11/20/2023 11/20/2023 11/20/2023 6:43 PM CDT Rule Out COVID-19 12/27/2023 12/27/2023 12/29/2023 1:37 PM CDT Rule Out COVID-19 03/01/2024 03/01/2024 03/01/2024 1:11 PM POCKETS AND PIECES NECKTIE OPERATOR Rule Out COVID-19 07/18/2024 07/18/2024 07/19/2024 5:52 PM CDT Rule Out COVID-19 10/17/2024 10/17/2024 10/17/2024 11:23 PM CDT Rule Out C-difficile 11/04/2024 11/04/2024 025 1:55 AM CDT Assessment Noted Time PHQ-9 Depression Total Score: 2 06/06/19 21 12:47 PM CDT documented as of this encounter Care Teams Leather Belt Loop Cutter Relationship Specialty [place] [address] [place] [address] PCP - General Family Practice 07/11/14 [place] [address] [place] [address] Assigned PCP 12/16/11 Kerry Bernal RN Personal Advocate & Liaison (PAL) 01/08/19 07/10/23 Ravi Barillas DPM [address] [address] Assigned Musculoskeletal Provider 03/23/20 10/30/21 Christy Campuzano PA-C [address] [place] [address] [id number] Referring Physician Family Medicine 04/22/20 Hans Cannon MD [address] [place] [address] Resident Pulmonary Disease 04/22/20 Mitra Kendall, ELECTRIC SCOOP OPERATOR Lead Supervisor Crack Off Primary Care - CC 01/08/1901/12 Burt Jovel MD Internal Medicine 05/08/20 12/13/23 Estella Hassan, [facility] [address] [place] [address] Pharmacist Pharmacist 05/26/20 Reji Chavez MD 6405 [facility] [address] [place] [address] Assigned Heart and Vascular Provider 05/18/20 10/30/21 Elaina Moreno MD [address] [place] [address] 082645 Assigned Surgical Provider 05/18/20 11/19/22 Elaina Moreno MD [address] [place] [address] [phone] Cardiovascular & Thoracic Surgery 08/06/20 Kelsi Hassan MD [address] [facility] [place], [place] [address] Assigned Pulmonology Provider 06/28/21 02/05/22 John Webb MD [address] 629665 Cardiovascular Disease 08/25/21 John Webb MD [address] 299005 Cardiovascular Disease 08/25/21 Estella Hassan, [facility] [address] [place] [address] Assigned MTM Pharmacist 09/05/21 Nav Hughes MD [address] [place] [address] Assigned Heart and Vascular Provider 10/31/21 09/03/23 Cassandra Mendoza MD ORTHOPAEDIC SURGERY [facility] [address] [address] Assigned Musculoskeletal Provider 10/31/21 08/13/22 Estella Hassan, [facility] [address] [place] [address] Assigned MTM Pharmacist 12/09/21 Mitra Kendall, [facility] Lead Supervisor Crack Off Primary Care - CC 01/26/2210/28 Lindsay Carey OD [facility]5 [facility] [place] [place] [address] Ophthalmology 01/29/22 Ravi Brownlee MD [address] 285115 Assigned Pulmonology Provider 02/06/22 09/03/23 Arabella Fishman MA Financial Resource Worker 02/22/22 02/23/22 Richard Kam MD 500 [place], [place] [address] Assigned Musculoskeletal Provider 08/14/22 Marisol Patel, [facility] [address] [id number] Pharmacist Pharmacist 11/22/22 01/09/23 [place] [address] BC PENA, [address] 965007 Assigned Neuroscience Provider 01/01/23 12/03/24 Rosemarie Mcdowell, RN Claim Clerk Diabetes Education 03/17/23 Ravi Brownlee MD [address] [place] [address] 532725 Assigned Heart and Vascular Provider 09/04/23 01/03/24 Mitra Kendall, [facility] Lead Supervisor Crack Off Primary Care - CC 12/12/23 Lizet Mann PA-C [address] [place] [address] Assigned Cancer Care Provider 01/04/24 Ravi Brownlee MD [address] [place] [address] Assigned Pulmonology Provider 01/04/24 Nav Hughes MD [address] [place] [address] [address] [address] Assigned Heart and Vascular Provider 01/04/24 05/05/24 Manuel Ahn OD 6341 [facility] [address] Locomotive Inspector 01/05/24 Arabella Fishman MA Financial Resource Worker 01/06/24 03/19/24 Thalia Charles [facility] [address] [place], [place] [id number] Pharmacist Pharmacy 01/26/24 Gaurav Valenzuela APRN BEARING MACHINE OPERATOR 606 [facility] 106 [place] [address] Assigned Sleep Provider 02/04/24 Manuel Ahn OD 6341 [place], [place] 777602 Assigned Surgical Provider 02/04/24 06/02/24 Debbie Mann MD 1600 [facility] 200 [place] [address] Cardiovascular Disease 02/24/24 Hakeem Chacko MBBS 2945 [place] [address] Assigned Rheumatology Provider 04/05/24 Debbie Mann MD 1600 [facility] 200 [place] [address] Assigned Heart and Vascular Provider 05/06/24 Timothy Tejada MD 6341 [place] [address] Ophthalmology 05/29/24 Timothy Tejada MD [address]341 [place] [address] Assigned Surgical Provider 06/03/24 Elsie Roberts APRN BEARING MACHINE OPERATOR 1600 [facility] [place] [address] [address] Nurse Practitioner Pain Medicine 10/16/24 Cristy Morton MD [facility]0 [facility] [address] [place] [id number] Assigned Pediatric Specialist Provider 11/03/24 Georgie Anguiano PA-C [address] [address] Assigned Neuroscience Provider 12/04/24 documented as of this encounter
--- OUTSIDE RECORDS SUMMARY | 2024-12-06 00:36 | XMS_ITS | Encounter Summary ---
Author Organization [place] Address [address] [place] [address] Care Team Providers Care Water [employer] Supervisor Name Role Phone Va Glez MD Primary Care Provider Va Glez MD Unavailable Kerry Bernal RN Unavailable Ravi Barillas DPM Unavailable [phone] Christy Campuzano PA-C Unavailable [phone] Hans Cannon MD Unavailable Mitra Kendall UNLEAVENED DOUGH MIXER Unavailable [phone] Burt Jovel MD Unavailable Estella Hassan [facility] Unavailable [phone] Reji Chavez MD Unavailable Josh Cordero MD, Madhuri Unavailable [phone] Josh Cordero MD, Madhuri Unavailable [phone] Kelsi Hassan MD Unavailable [phone] John Webb MD Unavailable John Webb MD Unavailable Estella Hassan [facility] Unavailable Nav Hughes MD Unavailable [phone] Cassandra Mendoza MD Unavailable Estella Hassan RPH Unavailable Mitra Kendall UNLEAVENED DOUGH MIXER Unavailable Aurelio Lindsay Kenzie OD Unavailable Ravi Brownlee MD Unavailable Kye Arabella MA Unavailable [phone] Richard Kam MD Unavailable Marisol Patel RPH Unavailable Gaby Vila DO Unavailable Rosemarie Mcdowell RN Unavailable Ravi Brownlee MD Unavailable Mitra Kendall UNLEAVENED DOUGH MIXER Unavailable Lizet MannC Unavailable Ravi Brownlee MD Unavailable Nav Hughes MD Unavailable [phone] Manuel Ahn OD Unavailable Kye Arabella MA Unavailable [phone] Thalia Charles RP Unavailable Gaurav Valenzuela APRN BIOLOGICAL LAB TECHNICIAN Unavailable Manuel Ahn OD Unavailable Debbie Mann MD Unavailable Hakeem Chacko Unavailable Debbie Mann MD Unavailable Timothy Tejada MD Unavailable Timothy Tejada MD Unavailable Elsie Roberts APRN BIOLOGICAL LAB TECHNICIAN Unavailable + Cristy Morton MD Unavailable Georgie Anguiano PA-C Unavailable [phone] Encounter Details Date Type Department Care Team (Late st Contact Info) Description 06/13/2020 MyC Medical Advice [facility] Mental Health & Addiction [address] [address] Nilsa Harper LICSW [address], [address] [place], [place] [address] Social History Tobacco Use Types Packs/Day Years [...] and Family Not on file 05/31/2019 Attends Baptism Services Not on file 05/30 Active Member [...] Date Recorded PHQ-2 Score 0 06/05/2020 [facility] [place] of Occupat ional Health - Occupational Stress [...] on file Legal 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 Gender Identity Not on file [...] Visit [facility] Rehabilitation Services [address] [place] [address] Shanta Cooper, MOIZ 12/14/2024 11:20 AM CDT Office Visit [facility] [address] [place] [address] Lizet Mann PA-C [address] [place] [address] 12/17/2024 2:10 PM CDT Office Visit [facility] Orthopedic [facility] 909 [facility] 4th [place] [address] Richard Kam MD [address] [place] [address] 12/19/2024 8:20 AM CDT Therapy Visit [address] [address] Shanta Cooper, PT 12/24/2024 5:00 PM CDT Therapy Visit [address] [address] Pattie Casillas, PT 12/25/2024 10:20 AM CDT Therapy Visit [address] [address] Shanta Cooper, PT 01/03/2025 1:00 PM CDT Office Visit [address] [phone] Estella Hassan, [facility] [address] [place] [address] 01/03/2025 1:30 PM CDT Office Visit [address] [phone] Va Glez MD [address] [place] [address] [id number] 01/08/2025 1:15 PM CDT Office Visit [address] [phone] Hakeem Chacko MBBS [address] [place] [address] Scheduled Procedures Name Priority Associated Diagnoses Date/Ti me INJECTION, EPIDURAL, TRANSFO RAMINAL APPROACH Cervical radiculitis RELEASE, CARPAL TUNNEL, ENDOSCOPIC Right carpal tunnel syndrome documented as of this encounter Visit Diagnoses Not on filedocumented in this encounter Additional Health Concerns Infection Onset Date Last Indicated Resolved Time Rule Out COVID-19 06/22/2021 06/22/2021 06/23/2021 8:58 PM CDT Rule Out COVID-19 01/22/2022 01/22/2022 01/24/2022 1:05 PM TIEING MACHINE OPERATOR Rule Out COVID-19 01/25/2022 01/25/2022 01/25/2022 5:21 AM TIEING MACHINE OPERATOR Influenza 01/25/2022 01/25/2022 02/01/2022 11:4 1 PM TIEING MACHINE OPERATOR Rule Out COVID-19 07/29/2022 07/29/2022 07/31/2022 11:17 AM CDT Rule Out COVID-19 03/23/2023 03/23/2023 03/23/2023 6:30 PM TIEING MACHINE OPERATOR COVID-19 03/23/2023 03/23/2023 04/13/2023 11:4 0 PM TIEING MACHINE OPERATOR Rule Out COVID-19 06/05/2023 06/05/2023 06/05/2023 5:53 PM CDT Rule Out COVID-19 11/06/2023 11/06/2023 11/06/2023 11:05 PM CDT Rule Out COVID-19 11/20/2023 11/20/2023 11/20/2023 6:43 PM CDT Rule Out COVID-19 12/27/2023 12/27/2023 12/29/2023 1:37 PM CDT Rule Out COVID-19 03/01/2024 03/01/2024 03/01/2024 1:11 PM TIEING MACHINE OPERATOR Rule Out COVID-19 07/18/2024 07/18/2024 07/19/2024 5:52 PM CDT Rule Out COVID-19 10/17/2024 10/17/2024 10/17/2024 11:23 PM CDT Rule Out C-difficile 11/04/2024 11/04/2024 025 1:55 AM CDT Assessment Noted Time PHQ-9 Depression Total Score: 2 06/06/19 21 12:47 PM CDT documented as of this encounter Care Teams Water [employer] Sewer [employer] Supervisor Relationship Specialty [place] [address] [place] [address] PCP - General Family Practice 07/11/14 [place] [address] [place] [address] Assigned PCP 12/16/11 Kerry Bernal, INOCENCIO Personal Advocate & Liaison (PAL) 01/08/19 07/10/23 Ravi Barillas DPM [address] [address] Assigned Musculoskeletal Provider 03/23/20 10/30/21 Christy Campuzano PA-C [address] [place] [address] [id number] Referring Physician Family Medicine 04/22/20 Hans Cannon MD [address] [place] [address] Resident Pulmonary Disease 04/22/20 Mitra Kendall, UNLEAVENED DOUGH MIXER Lead Grades 7 And 8 Visiting Teacher Primary Care - CC 01/08/1901/12 Burt Jovel MD Internal Medicine 05/08/20 12/13/23 Estella Hassan, [facility] [address] [place] [address] Pharmacist Pharmacist 05/26/20 Reji Chavez MD [address] [place] [address] Assigned Heart and Vascular Provider 05/18/20 10/30/21 Elaina Moreno MD [address] [place] [address] 463135 Assigned Surgical Provider 05/18/20 11/19/22 Elaina Moreno MD [address] [place] [address] 774135 Cardiovascular & Thoracic Surgery 08/06/20 Kelsi Hassan MD [address] [place] [address] Assigned Pulmonology Provider 06/28/21 02/05/22 John Webb MD [address] [address] Cardiovascular Disease 08/25/21 John Webb MD [address] 436825 Cardiovascular Disease 08/25/21 Estella Hassan, [facility] [address] [place] [address] Assigned MTM Pharmacist 09/05/21 Nav Hughes MD [address] [place] [address] Assigned Heart and Vascular Provider 10/31/21 09/03/23 Cassandra Mendoza MD ORTHOPAEDIC SURGERY [facility] [address] [address] Assigned Musculoskeletal Provider 10/31/21 08/13/22 Estella Hassan, [facility] [address] [place] [address] Assigned MTM Pharmacist 12/09/21 Mitra Kendall, [facility] Lead Grades 7 And 8 Visiting Teacher Primary Care - CC 01/26/2210/28 Lindsay Carey OD 3305 [facility] [address] [address] Ophthalmology 01/29/22 Ravi Brownlee MD [address] [address] Assigned Pulmonology Provider 02/06/22 09/03/23 Arabella Fishman MA Financial Resource Worker 02/22/22 02/23/22 Richard Kam MD 500 [place], [place] 726885 Assigned Musculoskeletal Provider 08/14/22 Marisol Patel, [facility] [address] [id number] Pharmacist Pharmacist 11/22/22 01/09/23 [place] [address] [place], [address] 934887 Assigned Neuroscience Provider 01/01/23 12/03/24 Rosemarie Mcdowell, RN Felt Coverer Diabetes Education 03/17/23 Ravi Brownlee MD [address] [place] [address] 274605 Assigned Heart and Vascular Provider 09/04/23 01/03/24 Mitra Kendall, [facility] Lead Grades 7 And 8 Visiting Teacher Primary Care - CC 12/12/23 Lizet Mann PA-C [address] [place] [address] Assigned Cancer Care Provider 01/04/24 Ravi Brownlee MD [address] [place] [address] Assigned Pulmonology Provider 01/04/24 Nav Hughes MD [address] [place] [address] [address] 900325 Assigned Heart and Vascular Provider 01/04/24 05/05/24 Manuel Ahn OD 6341 [facility] [place] [id number] Vehicle Delivery Worker 01/05/24 Arabella Fishman MA Financial Resource Worker 01/06/24 03/19/24 Thalia Charles [facility] [address] [place], [place] [phone] Pharmacist Pharmacy 01/26/24 Gaurav Valenzuela APRN BIOLOGICAL LAB TECHNICIAN 606 [facility] [address] [place] [address] Assigned Sleep Provider 02/04/24 Manuel Ahn OD 6341 [place], [place] 926862 Assigned Surgical Provider 02/04/24 06/02/24 Debbie Mann MD 1600 [facility] 200 [place] [address] Cardiovascular Disease 02/24/24 Hakeem Chacko MBBS 2945 [place] [address] Assigned Rheumatology Provider 04/05/24 Debbie Mann MD 1600 [facility] 200 [place] [address] Assigned Heart and Vascular Provider 05/06/24 Timothy Tejada MD 6341 [place] [address] Ophthalmology 05/29/24 Timothy Tejada MD [address]341 [place] [address] Assigned Surgical Provider 06/03/24 Elsie Roberts APRN BIOLOGICAL LAB TECHNICIAN 1600 [facility] [address] [address] Nurse Practitioner Pain Medicine 10/16/24 Cristy Morton MD 1440 [facility] [address] [id number] Assigned Pediatric Specialist Provider 11/03/24 Georgie Anguiano PA-C [address] [address] Assigned Neuroscience Provider 12/04/24 documented as of this encounter
--- OUTSIDE RECORDS SUMMARY | 2024-12-06 00:36 | XMS_ITS | Encounter Summary ---
Author Organization [place] Address [address] [place] [address] Care Team Providers Care Elastic Attacher Coverstitch Name Role Phone Va Glez MD Primary Care Provider [phone] Va Glez MD Unavailable Kerry Bernal RN Unavailable [phone] Ravi Barillas DPM Unavailable [phone] Christy Campuzano PA-C Unavailable Hans Cannon MD Unavailable [phone] Mitra Kendall CONCRETE SMOOTHER Unavailable Burt Jovel MD Unavailable [phone] Estella Hassan [facility] Unavailable Reji Chavez MD Unavailable Josh Cordero MD, Madhuri Unavailable [phone] Josh Cordero MD, Madhuri Unavailable [phone] Kelsi Hassan MD Unavailable [phone] John Webb MD Unavailable [phone] John Webb MD Unavailable [phone] Estella Hassan [facility] Unavailable [phone] Nav Hughes MD Unavailable [phone] Cassandra Mendoza MD Unavailable Estella Hassan RPH Unavailable Mitra Kendall CONCRETE SMOOTHER Unavailable Auerlio Lindsay Kenzie OD Unavailable Ravi Brownlee MD Unavailable Kye Arabella MA Unavailable [phone] Richard Kam MD Unavailable Mairsol Patel RPH Unavailable Gaby Vila DO Unavailable Rosemarie Mcdowell RN Unavailable Ravi Brownlee MD Unavailable Mitra Kendall CONCRETE SMOOTHER Unavailable Lizet MannC Unavailable Ravi Brownlee MD Unavailable Nav Hughes MD Unavailable [phone] Manuel Ahn OD Unavailable Key Arabella MA Unavailable [phone] Thalia Charles RP Unavailable Gaurav Valenzuela APRN ORACLE FUSION DEVELOPER Unavailable Manuel Ahn OD Unavailable Debbie Mann MD Unavailable Hakeem Chacko Unavailable Debbie Mann MD Unavailable Timothy Tejada MD Unavailable Timothy Tejada MD Unavailable Elsie Roberts APRN ORACLE FUSION DEVELOPER Unavailable + Cristy Morton MD Unavailable Georgie Anguiano PA-C Unavailable Encounter Details Date Type Department Care Team (Late st Contact Info) Description 06/11/2020 MyC Medical Advice [address] [address] Estella Hassan, [facility] [address] [place] [address] Social History Tobacco Use Types Packs/Day Years [...] Date Recorded PHQ-2 Score 0 06/05/2020 [facility] of Occupat ional Health - Occupational Stress [...] on file 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 Gender Identity Not on file Sexual Orientation [...] Description 12/11/2024 2:10 PM CDT Therapy Visit [facility] Rehabilitation Services [address] [place] [phone] Shanta Cooper PT 12/14/2024 11:20 AM CDT Office Visit [facility] [address] [facility] [address] [place] [address] Lizet Mann PA-C [address] [facility] [address] 12/17/2024 2:10 PM CDT Office Visit [facility] Orthopedic [facility] 909 [facility] 4th [place] [address] Richard Kam MD [address] [place] [address] 12/19/2024 8:20 AM CDT Therapy Visit [address] [address] Shanta Cooper, PT 12/24/2024 5:00 PM CDT Therapy Visit [address] [address] Pattie Casillas, PT 12/25/2024 10:20 AM CDT Therapy Visit [address] [address] Shanta Cooper, PT 01/03/2025 1:00 PM CDT Office Visit [address] [phone] Estella Hassan, [facility] [address] [place] [address] 01/03/2025 1:30 PM CDT Office Visit [address] [phone] Va Glez MD [address] [place] [address] [phone] 01/08/2025 1:15 PM CDT Office Visit [address] [phone] Hakeem Chacko MBBS [address] [place] [address] Scheduled Procedures Name Priority Associated Diagnoses Date/Ti me INJECTION, EPIDURAL, TRANSFO RAMINAL APPROACH Cervical radiculitis RELEASE, CARPAL TUNNEL, ENDOSCOPIC Right carpal tunnel syndrome documented as of this encounter Visit Diagnoses Not on filedocumented in this encounter Additional Health Concerns Infection Onset Date Last Indicated Resolved Time Rule Out COVID-19 06/22/2021 06/22/2021 06/23/2021 8:58 PM CDT Rule Out COVID-19 01/22/2022 01/22/2022 01/24/2022 1:05 PM CENTER AISLE CASHIER Rule Out COVID-19 01/25/2022 01/25/2022 01/25/2022 5:21 AM CENTER AISLE CASHIER Influenza 01/25/2022 01/25/2022 02/01/2022 11:4 1 PM CENTER AISLE CASHIER Rule Out COVID-19 07/29/2022 07/29/2022 07/31/2022 11:17 AM CDT Rule Out COVID-19 03/23/2023 03/23/2023 03/23/2023 6:30 PM CENTER AISLE CASHIER COVID-19 03/23/2023 03/23/2023 04/13/2023 11:4 0 PM CENTER AISLE CASHIER Rule Out COVID-19 06/05/2023 06/05/2023 06/05/2023 5:53 PM CDT Rule Out COVID-19 11/06/2023 11/06/2023 11/06/2023 11:05 PM CDT Rule Out COVID-19 11/20/2023 11/20/2023 11/20/2023 6:43 PM CDT Rule Out COVID-19 12/27/2023 12/27/2023 12/29/2023 1:37 PM CDT Rule Out COVID-19 03/01/2024 03/01/2024 03/01/2024 1:11 PM CENTER AISLE CASHIER Rule Out COVID-19 07/18/2024 07/18/2024 07/19/2024 5:52 PM CDT Rule Out COVID-19 10/17/2024 10/17/2024 10/17/2024 11:23 PM CDT Rule Out C-difficile 11/04/2024 11/04/2024 025 1:55 AM CDT Assessment Noted Time PHQ-9 Depression Total Score: 2 06/06/19 21 12:47 PM CDT documented as of this encounter Care Teams Elastic Attacher Coverstitch Relationship Specialty [place] [address] [place] [address] PCP - General Family Practice 07/11/14 [place] [address] [place] [address] Assigned PCP 12/16/11 Kerry Bernal RN Personal Advocate & Liaison (PAL) 01/08/19 07/10/23 Ravi Barillas DPM [id number] [place] [address] 300 [place] [address] Assigned Musculoskeletal Provider 03/23/20 10/30/21 Christy Campuzano PA-C [address] [place] [address] 822432 Referring Physician Family Medicine 04/22/20 Hans Cannon MD [address] [place] [address] Resident Pulmonary Disease 04/22/20 Mitra Kendall, CONCRETE SMOOTHER Lead Jackhammer Operator Primary Care - CC 01/08/1901/12 Burt Jovel MD Internal Medicine 05/08/20 12/13/23 Estella Hassan, [facility] [address] [place] [address] Pharmacist Pharmacist 05/26/20 Reji Chavez MD [address] [facility] [address] [place] [address] Assigned Heart and Vascular Provider 05/18/20 10/30/21 Elaina Moreno MD [address] [place] [address] Assigned Surgical Provider 05/18/20 11/19/22 Elaina Moreno MD [address] [place] [address] Cardiovascular & Thoracic Surgery 08/06/20 Kelsi Hassan MD [address] [place] [address] Assigned Pulmonology Provider 06/28/21 02/05/22 John Webb MD [address] [address] Cardiovascular Disease 08/25/21 John Webb MD [address] 241105 Cardiovascular Disease 08/25/21 Estella Hassan, [facility] [address] [place] [address] Assigned MTM Pharmacist 09/05/21 Nav Hughes MD [address] [place] [address] Assigned Heart and Vascular Provider 10/31/21 09/03/23 Cassandra Mendoza MD ORTHOPAEDIC SURGERY [address] [address] Assigned Musculoskeletal Provider 10/31/21 08/13/22 Estella Hassan, [facility] [address] [place] [address] Assigned MTM Pharmacist 12/09/21 Mitra Kendall, [facility] Lead Jackhammer Operator Primary Care - CC 01/26/2210/28 Lindsay Carey OD 3305 [facility] [place] [place] [address] Ophthalmology 01/29/22 Ravi Brownlee MD 420 [facility] 276 [place] [address] Assigned Pulmonology Provider 02/06/22 09/03/23 Arabella Fishman MA Financial Resource Worker 02/22/22 02/23/22 Richard Kam MD 500 [place] [address] Assigned Musculoskeletal Provider 08/14/22 Marisol Patel, [facility] [address] [place] [place] [address] [place] [address] Pharmacist Pharmacist 11/22/22 01/09/23 [place] [address] [place], [address] [address] Assigned Neuroscience Provider 01/01/23 12/03/24 Rosemarie Mcdowell, RN Baggage Porter Diabetes Education 03/17/23 Ravi Brownlee MD [address] [place] [address] 543005 Assigned Heart and Vascular Provider 09/04/23 01/03/24 Mitra Kendall, CONCRETE SMOOTHER Lead Jackhammer Operator Primary Care - CC 12/12/23 Lizet Mann PA-C [address] [place], [place] [address] [address] Assigned Cancer Care Provider 01/04/24 Ravi Brownlee MD [address] [place] [address] Assigned Pulmonology Provider 01/04/24 Nav Hughes MD [address] [place] [address] [address] [address] Assigned Heart and Vascular Provider 01/04/24 05/05/24 Manuel Ahn OD 6341 [facility] [address] [address] Duct Maker 01/05/24 Arabella Fishman MA Financial Resource Worker 01/06/24 03/19/24 Thalia Charles [facility] [address] [place] [address] Pharmacist Pharmacy 01/26/24 Gaurav Valenzuela APRN ORACLE FUSION DEVELOPER [address] [facility] 106 [place], [place] 406304 Assigned Sleep Provider 02/04/24 Manuel Ahn OD 6341 [place], [place] 739472 Assigned Surgical Provider 02/04/24 06/02/24 Debbie Mann MD 1600 [facility] 200 [place] [address] Cardiovascular Disease 02/24/24 Hakeem Chacko MBBS 2945 [place] [address] Assigned Rheumatology Provider 04/05/24 Debbie Mann MD 1600 [facility] 200 [place] [address] Assigned Heart and Vascular Provider 05/06/24 Timothy Tejada MD 6341 [place] [address] Ophthalmology 05/29/24 Timothy Tejada MD 6341 [place] [address] Assigned Surgical Provider 06/03/24 Elsie Roberts APRN ORACLE FUSION DEVELOPER 1600 [facility] [address] [address] Nurse Practitioner Pain Medicine 10/16/24 Cristy Morton MD 1440 [facility] [address] [address] Assigned Pediatric Specialist Provider 11/03/24 Georgie Anguiano PA-C [address] [address] Assigned Neuroscience Provider 12/04/24 documented as of this encounter
--- OUTSIDE RECORDS SUMMARY | 2024-12-06 00:36 | XMS_ITS | Encounter Summary ---
Author Organization [place] Address [address] [place] [address] Care Team Providers Care Mechanical Engineering Director Name Role Phone Va Glez MD Primary Care Provider Va Glez MD Unavailable Christy CampuzanoC Unavailable [phone] Hans Cannon MD Unavailable Estella Hassan [facility] Unavailable [phone] Josh Cordero MD, Madhuri Unavailable [phone] John Webb MD Unavailable John Webb MD Unavailable Estella Hassan [facility] Unavailable Lindsay Carey OD Unavailable Richard Kam MD Unavailable Gaby Vila DO Unavailable Rosemarie Mcdowell RN Unavailable [phone] Mitra Kendall FAMILY PRACTITIONER Unavailable [phone] Lizet Mann PA-C Unavailable Ravi Brownlee MD Unavailable [phone] Manuel Ahn OD Unavailable Thalia Charles [facility] Unavailable [phone] Nicolas Gaurav Bell BULK MAIL CLERK ASBESTOS WORKER Unavailable Debbie Mann MD Unavailable Hakeem Chacko MB Unavailable Debbie Mann MD Unavailable [phone] Timothy Tejada MD Unavailable [phone] Timothy Tejada MD Unavailable [phone] Elsie Roberts BULK MAIL CLERK ASBESTOS WORKER Unavailable + Cristy Morton MD Unavailable [phone] Encounter Details Date Type Department Care Team (Late st Contact Info) Description 11/05/2024 Orders Only (auto-released) [place] [address] Medical Surgical [address] [place] [address] Devon Shelton MD [address], [facility] HOSPITALIST OFFICE [place], [place] [phone] Atrial fibrillation with RVR (H) Social History Tobacco Use Types Packs/Day [...] re latives? 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 Gender Identity Not on file Sexual Orientation Not on file Occupation Industry Job Start Date Job End Date Not on file Not on file Not on file Not on file documented as of this encounter Plan of Treatment Upcoming Encounters Date Type Department Care Team (Late st Contact Info) Description 12/11/2024 2:10 PM CDT Therapy Visit [address] [place] [phone] Shanta Cooper, PT 12/14/2024 11:20 AM CDT Office Visit [facility] [address] [place] [address] [place] [address] Lizet Mann PA-C [address] [place] [address] 12/17/2024 2:10 PM CDT Office Visit [facility] [address]th [place] [phone] Richard Kam MD [address] [place] [address] 12/19/2024 8:20 AM CDT Therapy Visit [place] [address] [place] [phone] Shanta Cooper, PT 12/24/2024 5:00 PM CDT Therapy Visit [place] [address] [place] [phone] Pattie Casillas, PT 12/25/2024 10:20 AM CDT Therapy Visit [facility] [place] [address] [place] [phone] Shanta Cooper, MOIZ 01/03/2025 1:00 PM CDT Office Visit [facility] [address] [place] [phone] Estella Hassan, [facility] 3033 [place] [address] 01/03/2025 1:30 PM CDT Office Visit [facility] [address] [place] [phone] [place] [address] [place], [place] [phone] 01/08/2025 1:15 PM CDT Office Visit [facility] 2945 [facility] 200 [place] [address] Hakeem Chacko MBBS 2945 [place], [place] [phone] Scheduled Procedures Name Priority Associated Diagnoses Date/Ti me INJECTION, EPIDURAL, TRANSFO RAMINAL APPROACH Cervical radiculitis RELEASE, CARPAL TUNNEL, ENDOSCOPIC Right carpal tunnel syndrome documented as of this encounter Goals Goal Patient Goal Type Associated Problems Recent Progress Patient-Stated? Author Health Maintenance Care Plan HP GENERAL PROBLEM 100%(10/29/19 10:17 AM CDT) No Mitra Kendall, FAMILY PRACTITIONER Note: Update on 05/25/22 Barriers: Currently without [...] for health insurance by looking in to [employer] and talking with a FRW. Completed 3. I will look for a new job and will access resources that the [employer] offers. . Sarted new job 4. Continue [...] will work with FRW in applying for [facility], county assistance and to see if I qualify for Medicaid. I need to ask spouse what her income is as it goes by household income. 2. I will contact [facility] to ask about medicare plans and if there are saving programs I qualify for by by calling [phone]. 3. I will see if I am eligible for unemployment after losing my job. I will call [phone] to ask for assistance with unemployment application. 4. I will apply for jobs. I will work with [employer] in finding a job (Empowerment.) 5. I will access [employer] and ask about financial resources (such as [...] I will continue working with therapist at [facility]. 2. I will establish with Psychiatry. Planning to schedule with Ronnie. 3. I will meet with community company laundry worker Manjula Gresham. 4. I will look in to attending an IOP program. I will discuss with my [facility] therapist and number provided for [facility] Behavior[facility] Access - [phone] to schedule assessment fr IOP program. 5. I will go to [facility] if I have concerning mental health symptoms. 6. I will access [facility] if needed by calling [phone]. 7. I will consider calling [facility] Adult Mental health intake at [phone]. documented as of this encounter Visit Diagnoses Diagnosis Atrial fibrillation with RVR (H) [...] as of this encounter Care Teams Mechanical Engineering Director Relationship Specialty [place] [address] [place] [address] PCP - General Family Practice 07/11/14 [place] [address] [place] [address] Assigned PCP 12/16/11 Christy Campuzano PA-C [address] [place] [address] [phone] Referring Physician Family Medicine 04/22/20 Hans Cannon MD [address] [place] [address] Resident Pulmonary Disease 04/22/20 Estella Hassan, [facility] [address] [place], [place] 351226 Pharmacist Pharmacist 05/26/20 Elaina Moreno MD 909 [place], [place] 793735 Cardiovascular & Thoracic Surgery 08/06/20 John Webb MD [address] [id number] Cardiovascular Disease 08/25/21 John Webb MD [address] 200085 Cardiovascular Disease 08/25/21 [facility] 3033 [place], [place] 549366 Assigned MTM Pharmacist 12/09/21 Lindsay Carey OD [address] [facility] [place] [address] Ophthalmology 01/29/22 Richard Kam MD 500 [place], [place] 551875 Assigned Musculoskeletal Provider 08/14/22 [place] [address] 059007 Assigned Neuroscience Provider 01/01/23 12/03/24 Rosemarie Mcdowell, RN Pricing Intern Diabetes Education 03/17/23 Mitra Kendall, FAMILY PRACTITIONER Lead Care Administrative Tech Primary Care - CC 12/12/23 Lizet Mann PA-C [address] [place] [address] Assigned Cancer Care Provider 01/04/24 Ravi Brownlee MD 420 [facility] 276 [place], [place] [address] Assigned Pulmonology Provider 01/04/24 Manuel Ahn OD 6341 [place], [place] 846722 Sight Mounter 01/05/24 Thalia Charles [facility] [address] [place], [place] [phone] Pharmacist Pharmacy 01/26/24 Gaurav Valenzuela APRN ASBESTOS WORKER 606 [facility] 106 [place], [place] 504194 Assigned Sleep Provider 02/04/24 Debbie Mann MD 1600 [facility] 200 [place], [place] [phone] Cardiovascular Disease 02/24/24 Hakeem Chacko MBBS 2945 [place] [address] Assigned Rheumatology Provider 04/05/24 Debbie Mann MD 1600 [facility] 200 [place], [place] [phone] Assigned Heart and Vascular Provider 05/06/24 Timothy Tejada MD 6341 [place] [phone] Ophthalmology 05/29/24 Timothy Tejada MD 6341 [facility] [place] [address] Assigned Surgical Provider 06/03/24 Elsie Roberts APRN ASBESTOS WORKER 1600 [facility] 101 [place] [address] Nurse Practitioner Pain Medicine 10/16/24 Cristy Morton MD [address] [place] [address] [place] [address] Assigned Pediatric Specialist Provider 11/03/24 documented as of this encounter
--- OUTSIDE RECORDS SUMMARY | 2024-12-06 00:36 | XMS_ITS | Encounter Summary ---
Author Organization [place] Address [address] [place] [address] Care Team Providers Care Manager Of Distribution Name Role Phone Va Glez MD Primary Care Provider [phone] Va Glez MD Unavailable Va Glez MD Unavailable Kerry Bernal RN Unavailable [phone] Ravi Barillas DPM Unavailable [phone] Christy Campuzano-C Unavailable [phone] Hans Cannon MD Unavailable Mitra Kendall TALENT SPECIALIST Unavailable [phone] Faith Templeton CHW Unavailable [phone] Burt Jovel MD Unavailable [phone] Burt Jovel MD Unavailable [phone] Estella Hassan [facility] Unavailable [phone] Sheila Matias Unavailable Unavailable Reji Chavez MD Unavailable Josh Cordero MD, Madhuri Unavailable [phone] Josh Cordero MD, Madhuri Unavailable [phone] Kelsi Hassan MD Unavailable [phone] John Webb MD Unavailable John Webb MD Unavailable Estella Hassan [facility] Unavailable Nav Hughes MD Unavailable [phone] Cassandra Mendoza MD Unavailable Estella Hassan H Unavailable Mitra Kendall TALENT SPECIALIST Unavailable Lindsay Carey OD Unavailable Ravi Brownlee MD Unavailable Arabella Fishman MA Unavailable Richard Kam MD Unavailable Marisol Patel [facility] Unavailable Gaby Vila DO Unavailable Rosemarie Mcdowell RN Unavailable Ravi Brownlee MD Unavailable Mitra Kendall TALENT SPECIALIST Unavailable Lizet MannC Unavailable Ravi Brownlee MD Unavailable Nav Hughes MD Unavailable [phone] Manuel Ahn OD Unavailable [phone] Arabella Fishman MA Unavailable [phone] Thalia Charles [facility] Unavailable Gaurav Valenzuela APRN WELFARE ELIGIBILITY WORKER Unavailable [phone] Manuel Ahn OD Unavailable Debbie Mann MD Unavailable Hakeem Chacko Unavailable Debbie Mann MD Unavailable Timothy Tejada MD Unavailable [phone] Timothy Tejada MD Unavailable [phone] Elsie Roberts Jennifer MCCARTHYN WELFARE ELIGIBILITY WORKER Unavailable + Cristy Morton MD Unavailable Georgie Anguiano PA-C Unavailable [phone] Encounter Details Date Type Department Care [...] on file Legal Sex Male 3:29 AM METAL CUT OFF SAW TENDER Gender Identity Not on file Sexual Orientation Not on file documented as of this encounter Plan of Treatment Upcoming Encounters Date Type Department Care Team (Late st Contact Info) Description 12/11/2024 2:10 PM CDT Therapy Visit [facility] [address] [phone] Shanta Cooper, MOIZ 12/14/2024 11:20 AM CDT Office Visit [facility] [address] [place] [address] [phone] Lizet Mann PA-C [address] [place], [place] [address] [place] [address] 12/17/2024 2:10 PM CDT Office Visit [facility] 909 [facility] 4th [place] [phone] Richard Kam MD [address] [place] [address] 12/19/2024 8:20 AM CDT Therapy Visit [facility] [address] [place] [address] [address] [place] [address] Shanta Cooper, PT 12/24/2024 5:00 PM CDT Therapy Visit [facility] [address] [place] [address] [address] [place] [phone] Pattie Casillas, PT 12/25/2024 10:20 AM CDT Therapy Visit [facility] [address] [place] [address] 290 [place] [phone] Shanta Cooper, PT 01/03/2025 1:00 PM CDT Office Visit [address] [phone] [facility] 3033 [place] [address] 01/03/2025 1:30 PM CDT Office Visit [address] [phone] [place] [address] [place] [address] 01/08/2025 1:15 PM CDT Office Visit [facility] [address] [place] [phone] Hakeem Chacko MBBS 2945 [place] [address] Scheduled Procedures Name Priority Associated Diagnoses Date/Ti me INJECTION, EPIDURAL, TRANSFO RAMINAL APPROACH Cervical radiculitis RELEASE, CARPAL TUNNEL, ENDOSCOPIC Right carpal tunnel syndrome documented as of this encounter Visit Diagnoses Not on filedocumented in this encounter Additional Health Concerns Infection Onset Date Last Indicated Resolved Time Rule Out COVID-19 04/07/2020 04/07/2020 04/08/2020 7:51 PM METAL CUT OFF SAW TENDER Rule Out COVID-19 04/21/2020 04/21/2020 04/22/2020 5:44 PM METAL CUT OFF SAW TENDER Rule Out COVID-19 06/22/2021 06/22/2021 06/23/2021 8:58 PM CDT Rule Out COVID-19 01/22/2022 01/22/2022 01/24/2022 1:05 PM METAL CUT OFF SAW TENDER Rule Out COVID-19 01/25/2022 01/25/2022 01/25/2022 5:21 AM METAL CUT OFF SAW TENDER Influenza 01/25/2022 01/25/2022 02/01/2022 11:4 1 PM METAL CUT OFF SAW TENDER Rule Out COVID-19 07/29/2022 07/29/2022 07/31/2022 11:17 AM CDT Rule Out COVID-19 03/23/2023 03/23/2023 03/23/2023 6:30 PM METAL CUT OFF SAW TENDER COVID-19 03/23/2023 03/23/2023 04/13/2023 11:4 0 PM METAL CUT OFF SAW TENDER Rule Out COVID-19 06/05/2023 06/05/2023 06/05/2023 5:53 PM CDT Rule Out COVID-19 11/06/2023 11/06/2023 11/06/2023 11:05 PM CDT Rule Out COVID-19 11/20/2023 11/20/2023 11/20/2023 6:43 PM CDT Rule Out COVID-19 12/27/2023 12/27/2023 12/29/2023 1:37 PM CDT Rule Out COVID-19 03/01/2024 03/01/2024 03/01/2024 1:11 PM METAL CUT OFF SAW TENDER Rule Out COVID-19 07/18/2024 07/18/2024 07/19/2024 5:52 PM CDT Rule Out COVID-19 10/17/2024 10/17/2024 10/17/2024 11:23 PM CDT Rule Out C-difficile 11/04/2024 11/04/2024 025 1:55 AM CDT Assessment Noted Time PHQ-9 Depression Total Score: 14 017 10:10 AM METAL CUT OFF SAW TENDER documented as of this encounter Care Teams Manager Of Distribution Relationship Specialty [place] [address] [place] [address] PCP - General Family Practice 07/11/14 [place] [address] [place] [address] PCP - Assigned PCP 12/19/11 05/16/18 [place] [address] [place] [address] Assigned PCP 12/16/11 Kerry Bernal RN Personal Advocate & Liaison (PAL) 01/08/19 07/10/23 Ravi Barillas DPM [address] [address] Assigned Musculoskeletal Provider 03/23/20 10/30/21 Christy Campuzano PA-C [address] [place] [address] 447382 Referring Physician Family Medicine 04/22/20 Hans Cannon MD [address] [place] [address] 389012 Resident Pulmonary Disease 04/22/20 Mitra Kendall, TALENT SPECIALIST Lead Emergency Room Registered Nurse Primary Care - CC 01/08/1901/12 Faith Templeton, [facility] Community Health Worker 04/30/2006/05 Burt Jovel MD Internal Medicine 05/08/20 12/13/23 Burt Jovel MD [address] [place] [address]A [place] [address] Assigned Heart and Vascular Provider 05/11/20 05/17/20 Estella Hassan, [facility] [address] [place] [address] Pharmacist Pharmacist 05/26/20 Sheila Matias Financial Resource Worker Primary Care - CC 06/02/20 06/02/20 Reji Chavez MD [address] [place] [phone] Assigned Heart and Vascular Provider 05/18/20 10/30/21 Elaina Moreno MD [address] [place] [address] Assigned Surgical Provider 05/18/20 11/19/22 Elaina Moreno MD [address] [place] [address] Cardiovascular & Thoracic Surgery 08/06/20 Kelsi Hassan MD 2450 [place] [address] Assigned Pulmonology Provider 06/28/21 02/05/22 John Webb MD [address] [address] Cardiovascular Disease 08/25/21 John Webb MD [address] [place] [address] Cardiovascular Disease 08/25/21 Estella Hassan, [facility] [address] [place] [address] Assigned MTM Pharmacist 09/05/21 Nav Hughes MD [address] [place] [address] Assigned Heart and Vascular Provider 10/31/21 09/03/23 Cassandra Mendoza MD ORTHOPAEDIC SURGERY [address] [place] [address] Assigned Musculoskeletal Provider 10/31/21 08/13/22 Estella Hassan, [facility] [address] [place] [address] Assigned MTM Pharmacist 12/09/21 Mitra Kendall, [facility] Lead Emergency Room Registered Nurse Primary Care - CC 01/26/2210/28 [place] [address] [place] [address] [place] [address] Ophthalmology 01/29/22 Ravi Brownlee MD [address] [place] [address] Assigned Pulmonology Provider 02/06/22 09/03/23 Arabella Fishman MA Financial Resource Worker 02/22/22 02/23/22 Richard Kam MD [address] [place] [address] Assigned Musculoskeletal Provider 08/14/22 Marisol Patel, [facility] [address] [place] [address] Pharmacist Pharmacist 11/22/22 01/09/23 [place] [address] [address] Assigned Neuroscience Provider 01/01/23 12/03/24 Rosemarie Mcdowell RN Slot Floor Supervisor Diabetes Education 03/17/23 Ravi Brownlee MD [address] [place] [address] Assigned Heart and Vascular Provider 09/04/23 01/03/24 Mitra Kendall, TALENT SPECIALIST Lead Emergency Room Registered Nurse Primary Care - CC 12/12/23 Lizet Mann PA-C [address] [place] [address] Assigned Cancer Care Provider 01/04/24 Ravi Brownlee MD [address] [place] [address] Assigned Pulmonology Provider 01/04/24 Nav Hughes MD 6405 [facility] [address] [place] [address] Assigned Heart and Vascular Provider 01/04/24 05/05/24 Manuel Ahn, OD 6341 [place] [address] Liquor Gallery Operator 01/05/24 Arabella Fishman MA Financial Resource Worker 01/06/24 03/19/24 Thalia Charles [facility] [address] [place], [place] [phone] Pharmacist Pharmacy 01/26/24 Gaurav Valenzuela APRN WELFARE ELIGIBILITY WORKER 606 [facility] 106 [place] [address] Assigned Sleep Provider 02/04/24 Manuel Ahn, OD 6341 [place] [address] Assigned Surgical Provider 02/04/24 06/02/24 Debbie Mann MD 1600 [facility] 200 [place] [address] Cardiovascular Disease 02/24/24 Hakeem Chacko MBBS 2945 [place] [address] Assigned Rheumatology Provider 04/05/24 Debbie Mann MD 1600 [facility] 200 [place] [address] Assigned Heart and Vascular Provider 05/06/24 Timothy Tejada MD 6341 [facility] SHANKAR DICKENS [phone] Ophthalmology 05/29/24 Timothy eTjada MD 6341 [facility] [place] [phone] Assigned Surgical Provider 06/03/24 Elsie Roberts APRN WELFARE ELIGIBILITY WORKER [address] [place] [phone] Nurse Practitioner Pain Medicine 10/16/24 Cristy Morton MD [address] [place] [address] SHANKAR ROMO [id number] Assigned Pediatric Specialist Provider 11/03/24 Georgie Anguiano PA-C [address] 736505 Assigned Neuroscience Provider 12/04/24 documented as of this encounter
--- OUTSIDE RECORDS SUMMARY | 2024-12-06 00:37 | XMS_ITS | Encounter Summary ---
Author Organization [place] Address [address] [place] [address] Care Team Providers Care Centrifugal Machine Tender Name Role Phone Va Glez MD Primary Care Provider Va Glez MD Unavailable Kerry Bernal RN Unavailable Ravi Barillas DPM Unavailable [phone] Christy Campuzano PA-C Unavailable Hans Cannon MD Unavailable [phone] Mitra Kendall COLORED LEATHER SETTER Unavailable Burt Jovel MD Unavailable Estella Hassan [facility] Unavailable Reji Chavez MD Unavailable [phone] Josh Cordero MD, Madhuri Unavailable [phone] Josh Cordero MD, Madhuri Unavailable [phone] Kelsi Hassan MD Unavailable [phone] John Webb MD Unavailable [phone] John Webb MD Unavailable [phone] Estella Hassan [facility] Unavailable Nva Hughes MD Unavailable [phone] Cassandra Mendoza MD Unavailable Estella Hassan RPH Unavailable Mitra Kendall COLORED LEATHER SETTER Unavailable Aurelio Lindsay Kenzie OD Unavailable Ravi Brownlee MD Unavailable Kye Arabella MA Unavailable [phone] Richard Kam MD Unavailable Marisol Patel RPH Unavailable Gaby Vila DO Unavailable Rosemarie Mcdowell RN Unavailable Ravi Brownlee MD Unavailable Mitra Kendall COLORED LEATHER SETTER Unavailable Lizet MannC Unavailable Ravi Brownlee MD Unavailable Nav Hughes MD Unavailable [phone] Manuel Ahn OD Unavailable Kye Arabella MA Unavailable [phone] Thalia Charles RP Unavailable Gaurav Valenzuela APRN COAL BAGGER Unavailable Manuel Ahn OD Unavailable Debbie Mann MD Unavailable Hakeem Chacko Unavailable Debbie Mann MD Unavailable Timothy Tejada MD Unavailable Timothy Tejada MD Unavailable Elsie Roberts APRN COAL BAGGER Unavailable + Cristy Morton MD Unavailable Georgie Anguiano PA-C Unavailable [phone] Encounter Details Date Type Department Care Team (Late st Contact Info) Description 06/11/2020 MyC Medical Advice [facility] [address] [address] Ravi Barillas, DENY [address] [facility] [address] [place] [address] Social History Tobacco Use Types [...] Date Recorded PHQ-2 Score 0 06/05/2020 [facility] [place] [facility] - Occupational Stress [...] on file Legal Sex Male 3:29 AM 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 4th [place] [address] Richard Kam MD [address] [place] [address] 12/19/2024 8:20 AM CDT Therapy Visit [address] [address] Shanta Cooper, PT 12/24/2024 5:00 PM CDT Therapy Visit [address] [address] Pattie Casillas, PT 12/25/2024 10:20 AM CDT Therapy Visit [address] [address] Shanta Cooper, PT 01/03/2025 1:00 PM CDT Office Visit [address] [address] Estella Hassan, [facility] [address] [place] [address] 01/03/2025 1:30 PM CDT Office Visit [address] [address] [place] [id number] [place] [address] 01/08/2025 1:15 PM CDT Office Visit [address] [phone] Hakeem Chacko MBBS [address] [place] [address] [place] [address] Scheduled Procedures Name Priority Associated Diagnoses Date/Ti me INJECTION, EPIDURAL, TRANSFO RAMINAL APPROACH Cervical radiculitis RELEASE, CARPAL TUNNEL, ENDOSCOPIC Right carpal tunnel syndrome documented as of this encounter Visit Diagnoses Not on filedocumented in this encounter Additional Health Concerns Infection Onset Date Last Indicated Resolved Time Rule Out COVID-19 06/22/2021 06/22/2021 06/23/2021 8:58 PM CDT Rule Out COVID-19 01/22/2022 01/22/2022 01/24/2022 1:05 PM COOPERATIVE EXTENSION AGENT Rule Out COVID-19 01/25/2022 01/25/2022 01/25/2022 5:21 AM COOPERATIVE EXTENSION AGENT Influenza 01/25/2022 01/25/2022 02/01/2022 11:4 1 PM COOPERATIVE EXTENSION AGENT Rule Out COVID-19 07/29/2022 07/29/2022 07/31/2022 11:17 AM CDT Rule Out COVID-19 03/23/2023 03/23/2023 03/23/2023 6:30 PM COOPERATIVE EXTENSION AGENT COVID-19 03/23/2023 03/23/2023 04/13/2023 11:4 0 PM COOPERATIVE EXTENSION AGENT Rule Out COVID-19 06/05/2023 06/05/2023 06/05/2023 5:53 PM CDT Rule Out COVID-19 11/06/2023 11/06/2023 11/06/2023 11:05 PM CDT Rule Out COVID-19 11/20/2023 11/20/2023 11/20/2023 6:43 PM CDT Rule Out COVID-19 12/27/2023 12/27/2023 12/29/2023 1:37 PM CDT Rule Out COVID-19 03/01/2024 03/01/2024 03/01/2024 1:11 PM COOPERATIVE EXTENSION AGENT Rule Out COVID-19 07/18/2024 07/18/2024 07/19/2024 5:52 PM CDT Rule Out COVID-19 10/17/2024 10/17/2024 10/17/2024 11:23 PM CDT Rule Out C-difficile 11/04/2024 11/04/2024 025 1:55 AM CDT Assessment Noted Time PHQ-9 Depression Total Score: 2 06/06/19 21 12:47 PM CDT documented as of this encounter Care Teams Centrifugal Machine Tender Relationship Specialty [place] [address] [place] [address] PCP - General Family Practice 07/11/14 [place] [address] [place] [address] Assigned PCP 12/16/11 Kerry Bernal RN Personal Advocate & Liaison (PAL) 01/08/19 07/10/23 Ravi Barillas DPM [address] [address] Assigned Musculoskeletal Provider 03/23/20 10/30/21 Christy Campuzano PA-C [address] [place] [address] 191172 Referring Physician Family Medicine 04/22/20 Hans Cannon MD [address] [place] [address] Resident Pulmonary Disease 04/22/20 Mitra Kendall, COLORED LEATHER SETTER Lead Shirt Cleaner Primary Care - CC 01/08/1901/12 Burt Jovel MD Internal Medicine 05/08/20 12/13/23 Estella Hassan, [facility] [address] [place] [address] Pharmacist Pharmacist 05/26/20 Reji Chavez MD [address] [facility] [address] [place] [address] Assigned Heart and Vascular Provider 05/18/20 10/30/21 Elaina Moreno MD [address] [place] [address] 084915 Assigned Surgical Provider 05/18/20 11/19/22 Elaina Moreno MD [address] [place] [address] 670615 Cardiovascular & Thoracic Surgery 08/06/20 Kelsi Hassan MD [address] [facility] [place], [place] [address] Assigned Pulmonology Provider 06/28/21 02/05/22 John Webb MD [address] [id number] Cardiovascular Disease 08/25/21 John Webb MD [address] 588265 Cardiovascular Disease 08/25/21 Estella Hassan, [facility] [address] [place] [address] Assigned MTM Pharmacist 09/05/21 Nav Hughes MD [address] [place] [address] Assigned Heart and Vascular Provider 10/31/21 09/03/23 Cassandra Mendoza MD ORTHOPAEDIC SURGERY [facility] [address] Assigned Musculoskeletal Provider 10/31/21 08/13/22 Estella Hassan, [facility] [address] [place] [address] Assigned MTM Pharmacist 12/09/21 Mitra Kendall, [facility] Lead Shirt Cleaner Primary Care - CC 01/26/2210/28 Lindsay Carey OD [facility] [address] [address] Ophthalmology 01/29/22 Ravi Brownlee MD [address] 630[address] Assigned Pulmonology Provider 02/06/22 09/03/23 Arabella Fishman MA Financial Resource Worker 02/22/22 02/23/22 Richard Kam MD 500 [place], [place] 079995 Assigned Musculoskeletal Provider 08/14/22 Marisol Patel, [facility] [address] [id number] Pharmacist Pharmacist 11/22/22 01/09/23 [place] [address] [place], [address] 520627 Assigned Neuroscience Provider 01/01/23 12/03/24 Rosemarie Mcdowell, RN Apparel Trimmings Sales Representative Diabetes Education 03/17/23 Ravi Brownlee MD [address] [place] [address] 871045 Assigned Heart and Vascular Provider 09/04/23 01/03/24 Mitra Kendall, [facility] Lead Shirt Cleaner Primary Care - CC 12/12/23 Lizet Mann PA-C [address] [place] [address] Assigned Cancer Care Provider 01/04/24 Ravi Brownlee MD [address] [place] [address] Assigned Pulmonology Provider 01/04/24 Nav Hughes MD [address] [place] [address] [address] [address] Assigned Heart and Vascular Provider 01/04/24 05/05/24 Manuel Ahn OD [address] [facility] [place] [address] Pulp Making Plant Operator 01/05/24 Arabella Fishman MA Financial Resource Worker 01/06/24 03/19/24 Thalia Charles [facility] [address] [place], [place] [phone] Pharmacist Pharmacy 01/26/24 Gaurav Valenzuela APRN COAL BAGGER 606 [facility] 106 [place] [address] Assigned Sleep Provider 02/04/24 Manuel Ahn OD 6341 [place], [place] 935192 Assigned Surgical Provider 02/04/24 06/02/24 Debbie Mann MD 1600 [facility] 200 [place] [address] Cardiovascular Disease 02/24/24 Hakeem Chacko MBBS 2945 [place] [address] Assigned Rheumatology Provider 04/05/24 Debbie Mann MD 1600 [facility] 200 [place] [address] Assigned Heart and Vascular Provider 05/06/24 Timothy Tejada MD 6341 [place] [address] Ophthalmology 05/29/24 Timothy Tejada MD 6341 [place] [address] Assigned Surgical Provider 06/03/24 Elsie Roberts APRN COAL BAGGER 1600 [facility] [place] [address] [address] Nurse Practitioner Pain Medicine 10/16/24 Cristy Morton MD [facility] [address] [id number] Assigned Pediatric Specialist Provider 11/03/24 Georgie Anguiano PA-C [address] [address] Assigned Neuroscience Provider 12/04/24 documented as of this encounter
--- OUTSIDE RECORDS SUMMARY | 2024-12-06 00:37 | XMS_ITS | Encounter Summary ---
Author Organization [facility] Address [address] [place] [address] Care Team Providers Care Professional Employer Consultant Name Role Phone Va Glez MD Primary Care Provider [phone] Va Glez MD Unavailable Christy CampuzanoC Unavailable [phone] Hans Cannon MD Unavailable Estella Hassan [facility] Unavailable Josh Cordero MD, Madhuri Unavailable [phone] John Webb MD Unavailable [phone] John Webb MD Unavailable [phone] Estella Hassan [facility] Unavailable Lindsay Carey OD Unavailable Richard Kam MD Unavailable Gaby Vila DO Unavailable [phone] Rosemarie Mcdowell RN Unavailable Mitra Kendall INSIDE SALES LEAD Unavailable [phone] Lizet Mann PA-C Unavailable Ravi Brownlee MD Unavailable Manuel Ahn OD Unavailable [phone] Thalia Charles [facility] Unavailable [phone] Gaurav Valenzuela Ray COMMUNICATIONS PROJECT MANAGER DOUBLE END TENONER OPERATOR Unavailable [phone] Debbie Mann MD Unavailable [phone] Hakeem Chacko MB Unavailable Debbie Mann MD Unavailable [phone] Timothy Tejada MD Unavailable [phone] Timothy Tejada MD Unavailable [phone] Elsie Roberts COMMUNICATIONS PROJECT MANAGER DOUBLE END TENONER OPERATOR Unavailable + Cristy Morton MD Unavailable [phone] Reason for Visit * Reason Onset Date Comments Patient/info Update 11/06/2024 Encounter Details Date Type Department Care Team (Late st Contact Info) Description 11/06/[address] [address] [place] [address] [place] [address] Patient/info Update Social History Tobacco Use Types Packs/Day Years [...] re latives? 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 He is starting a new job and was just discharged from the hospital on 11/05/24 for Afib. Patient is very worried about not having a pulse oximeter and is hoping we can give him some ideas of how to acquire one. States he gets paid on 11/17/24 and can't afford to buy one before pay day. Left message for care partner to contact patient directly. documented in this encounter Plan of Treatment Upcoming Encounters Date Type Department Care Team (Late st Contact Info) Description 12/11/2024 2:10 PM CDT Therapy Visit [facility] Rehabilitation Services [address] [phone] Shanta [place], MOIZ 12/14/2024 11:20 AM CDT Office Visit [facility] [id number] [place] [address] [place] [address] Lizet Mann PA-C [address] [place] [address] 12/17/2024 2:10 PM CDT Office Visit [facility] Orthopedic [address] 4th [place] [phone] Richard Kam MD 500 [place] [address] 12/19/2024 8:20 AM CDT Therapy Visit [address] [phone] Shanta [place], PT 12/24/2024 5:00 PM CDT Therapy Visit [address] [phone] Pattie Casillas, PT 12/25/2024 10:20 AM CDT Therapy Visit [address] [address] Shanta [place], PT 01/03/2025 1:00 PM CDT Office Visit [address] [phone] Estella Hassan, [facility] [address] [place] [address] 01/03/2025 1:30 PM CDT Office Visit [address] [phone] Va Glez MD [address] [place] [address] [id number] 01/08/2025 1:15 PM CDT Office Visit [facility] [address] [phone] Hakeem Chacko MBBS [address] [place] [address] Scheduled Procedures Name Priority Associated Diagnoses Date/Ti [...] for health insurance by looking in to [employer] and talking with a FRW. Completed 3. I will look for a new job and will access resources that the [facility] offers. . Sarted new job 4. [...] by household income. 2. I will contact [employer] to ask about medicare plans and if there are saving programs I qualify for by by calling [phone]. 3. I will see if I am eligible for unemployment after losing my job. I will call [phone] to ask for assistance with unemployment application. 4. I will apply for jobs. I will work with [employer] in finding a job (Empowerment.) 5. I will access Before [employer] and ask about financial resources (such as [...] I will continue working with therapist at [facility]. 2. I will establish with Psychiatry. Planning to schedule with Ronnie. 3. I will meet with community land surveying survey worker Manjula Gresham. 4. I will look in to attending an IOP program. I will discuss with my [facility] therapist and number provided for [facility] Behavioral Access - [phone] to schedule assessment fr IOP program. 5. I will go to [facility] if I have concerning mental health symptoms. 6. I will access [facility] Crisis if needed by calling [phone]. 7. I will consider calling [facility] Adult Mental health intake at [phone]. documented as of this encounter Visit Diagnoses [...] documented as of this encounter Care Teams Professional Employer Consultant Relationship Specialty [place] [address] [place] [address] PCP - General Family Practice 07/11/14 [place] [address] [place] [address] Assigned PCP 12/16/11 Christy Campuzano PA-C [address] [place] [address] 125572 Referring Physician Family Medicine 04/22/20 Hans Cannon MD [address] [place] [address] 330012 Resident Pulmonary Disease 04/22/20 Estella Hassan, [facility] [address] [place] [address] Pharmacist Pharmacist 05/26/20 Elaina Moreno MD [address] [place] [address] [phone] Cardiovascular & Thoracic Surgery 08/06/20 John Webb MD [address] 349315 Cardiovascular Disease 08/25/21 John Webb MD [address] 504955 Cardiovascular Disease 08/25/21 Estella Hassan, [facility] [address] [place] [address] Assigned MTM Pharmacist 12/09/21 Lindsay Carey OD [address] [facility] [place] [address] Ophthalmology 01/29/22 Richard Kam MD [address] [place] [address] 263565 Assigned Musculoskeletal Provider 08/14/22 [place] [address] [place] [address] [address] Assigned Neuroscience Provider 01/01/23 12/03/24 Rosemarie Mcdowell, RN Hydraulic Operator Diabetes Education 03/17/23 Mitra Kendall, INSIDE SALES LEAD Lead Hollock Maker Primary Care - CC 12/12/23 Lizet Mann PA-C [address] [place] [address] Assigned Cancer Care Provider 01/04/24 Ravi Brownlee MD 420 [facility] 276 [place], [place] 511745 Assigned Pulmonology Provider 01/04/24 Manuel Ahn OD 6341 [place], [place] 858412 It Help Desk Technician 01/05/24 Thalia Charles [facility] [address] [place] [address] Pharmacist Pharmacy 01/26/24 Gaurav Valenzuela APRN DOUBLE END TENONER OPERATOR [address] [facility] 106 [place], [place] 493354 Assigned Sleep Provider 02/04/24 Debbie Mann MD 1600 [facility] 200 [place], [place] [phone] Cardiovascular Disease 02/24/24 Hakeem Chacko MBBS [address] [place] [address] Assigned Rheumatology Provider 04/05/24 Debbie Mann MD 1600 [facility] 200 [place] [address] Assigned Heart and Vascular Provider 05/06/24 Timothy Tejada MD 6341 [place] [address] Ophthalmology 05/29/24 Timothy Tejada MD [address] [place] [address] Assigned Surgical Provider 06/03/24 Elsie Roberts APRN CNP 1600 [facility] 101 [place] [address] Nurse Practitioner Pain Medicine 10/16/24 Cristy Morton MD [facility] [place] [address] Assigned Pediatric Specialist Provider 11/03/24 documented as of this encounter
--- OUTSIDE RECORDS SUMMARY | 2024-12-06 00:37 | XMS_ITS | Encounter Summary ---
Author Organization [facility] Address [address] [place] [address] Care Team Providers Care Film Color Tester Name Role Phone Va Glez MD Primary Care Provider Va Glez MD Unavailable Christy CampuzanoC Unavailable [phone] Hans Cannon MD Unavailable Estella Hassan [facility] Unavailable Josh Cordero MD, Madhuri Unavailable [phone] John Webb MD Unavailable [phone] John Webb MD Unavailable Estella Hassan [facility] Unavailable [phone] Lindsay Carey OD Unavailable Richard Kam MD Unavailable Gaby Vila DO Unavailable Rosemarie Mcdowell RN Unavailable Mitra Kendall BOWLING ALLEY ATTENDANT Unavailable [phone] Lizet Mann PA-C Unavailable Ravi Brownlee MD Unavailable [phone] Manuel Ahn OD Unavailable [phone] Thalia Charles [facility] Unavailable [phone] Gaurav Valenzuela CREW CLERK COUNTER CLERK [employer] Unavailable [phone] Debbie Mann MD Unavailable [phone] Hakeem Chacko [facility] Unavailable Debbie Mann MD Unavailable [phone] Timothy Tejada MD Unavailable [phone] Timothy Tejada MD Unavailable [phone] Elsie Roberts CREW CLERK COUNTER CLERK [employer] Unavailable + Cristy Morton MD Unavailable [phone] Encounter Details Date Type Department Care Team (Latest Contact Info) Description 11/04/2024 Travel Social History Tobacco Use Types Packs/Day [...] re latives? 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 Gender Identity Not on file Sexual Orientation Not on file Occupation Industry Job Start Date Job End Date Not on file Not on file Not on file Not on file documented as of this encounter Plan of Treatment Upcoming Encounters Date Type Department Care Team (Late st Contact Info) Description 12/11/2024 2:10 PM CDT Therapy Visit [place] [address] [place] [address] Shanta Cooper, PT 12/14/2024 11:20 AM CDT Office Visit [facility] [address] [place] [address] Lizet Mann PA-C [address] [address] [place] [address] 12/17/2024 2:10 PM CDT Office Visit [facility] Orthopedic [address] 4th [place] [phone] Richard Kam MD [address] [place] [address] 12/19/2024 8:20 AM CDT Therapy Visit [address] [address] Shanta Cooper, PT 12/24/2024 5:00 PM CDT Therapy Visit [place] [address] [place] [address] Pattie Casillas, PT 12/25/2024 10:20 AM CDT Therapy Visit [place] [address] [place] [phone] Shanta Cooper, PT 01/03/2025 1:00 PM CDT Office Visit [address] [phone] Estella Hassan, [facility] [address] [place] [address] 01/03/2025 1:30 PM CDT Office Visit [facility] [address] [place] [address] [place] [address] [place] [address] 01/08/2025 1:15 PM CDT Office Visit [facility] [address] [facility] 200 [place] [address] Hakeem Chacko [employer]BS [address] [place] [address] Scheduled Procedures Name Priority Associated Diagnoses Date/Ti [...] for health insurance by looking in to [employer] and talking with a FRW. Completed 3. I will look for a new job and will access resources that the [email or web address] center offers. . Sarted new job 4. Continue to use Single Care to reduce the cost of my prescriptions. Create an action plan to increase financial stability Care Plan Patient expresses financial resource strain No Josefina Patel Become up-to-date with health maintenance visit(s) Care Plan Health Maintenance Due or Overdue 30%( 5 3:13 PM CDT) No Mitra Kendlal LSW Note: Barriers: Life stressors Strengths: Engaged [...] by household income. 2. I will contact [employer] to ask about medicare plans and if there are saving programs I qualify for by by calling [phone]. 3. I will see if I am eligible for unemployment after losing my job. I will call [phone] to ask for assistance with unemployment application. 4. I will apply for jobs. I will work with [employer] in finding a job ([employer].) 5. I will access [employer] and ask about financial resources (such as [...] continue working with therapist at [facility]. 2. I will establish with Psychiatry. Planning to schedule with Ronnie. 3. I will meet with [facility] power lineworker Manjula Gresham. 4. I will look in to attending an IOP program. I will discuss with my [facility] therapist and number provided for [facility] Behavioral Access - [phone] to schedule assessment fr IOP program. 5. I will go to [facility] if I have concerning mental health symptoms. 6. I will access [facility] Crisis if needed by calling [phone]. 7. I will consider calling [facility] Adult Mental health intake at [phone]. documented as of this encounter Visit Diagnoses [...] [facility] [place]. 3. I will update [facility] Team at outreach. Health Maintenance Due or Overdue 12/16/2023 Patient expresses financial resource strain 12/13 Mental Health Symptoms Need Improvement 04/05/19 25 Infection Onset Date Last Indicated Resolved Time Rule Out C-difficile 11/04/2024 11/04/2024 025 1:55 AM CDT Assessment Noted Time PHQ-9 Depression Total Score: 18 025 2:39 PM CDT documented as of this encounter Care Teams Film Color Tester Relationship Specialty [place] [address] [place] [address] PCP - General Family Practice 07/11/14 [place] [address] [place] [address] Assigned PCP 12/16/11 Christy Campuzano PA-C [address] [place] [address] [phone] Referring Physician Family Medicine 04/22/20 Hans Cannon MD [address] [place] [address] 588232 Resident Pulmonary Disease 04/22/20 Estella Hassan, [facility] [address] [place], [place] [address]396 Pharmacist Pharmacist 05/26/20 Elaina Moreno MD [address] [place] [address] Cardiovascular & Thoracic Surgery 08/06/20 John Webb MD [address] [id number] Cardiovascular Disease 08/25/21 John Webb MD [address] [address] Cardiovascular Disease 08/25/21 Estella Hassan, [facility] [address] [place] [address] Assigned MTM Pharmacist 12/09/21 Lindsay Carey OD [address] [facility] [address] Ophthalmology 01/29/22 Richard Kam MD [address] [place] [address] Assigned Musculoskeletal Provider 08/14/22 [place] [address] [place] [address] [address] Assigned Neuroscience Provider 01/01/23 12/03/24 Rosemarie Mcdowell, RN Respiratory Therapy Technician Diabetes Education 03/17/23 Mitra Kendall, BOWLING ALLEY ATTENDANT Lead Supervisor Customer Records Division Primary Care - CC 12/12/23 Lizet Mann PA-C [address] [place] [address] Assigned Cancer Care Provider 01/04/24 Ravi Brownlee MD [address] [place] [address] Assigned Pulmonology Provider 01/04/24 Manuel Ahn OD [address] [place] [address] Filter Helper 01/05/24 Thalia Charles [facility] [address] [place] [address] Pharmacist Pharmacy 01/26/24 Gaurav Valenzuela APRN COUNTER CLERK [employer] [address] [facility] 106 [place] [address] Assigned Sleep Provider 02/04/24 Debbie Mann MD [address] [facility] 200 [place], [place] [phone] Cardiovascular Disease 02/24/24 Hakeem Chacko MBBS [address] [place], [place] [phone] Assigned Rheumatology Provider 04/05/24 Debbie Mann MD 1600 [facility] 200 [place], [place] [phone] Assigned Heart and Vascular Provider 05/06/24 Timothy Tejada MD 6341 [place] [phone] Ophthalmology 05/29/24 Timothy Tejada MD [address] [place] [phone] Assigned Surgical Provider 06/03/24 Elsie Roberts APRN COUNTER CLERK [employer] 1600 [facility] 101 [place], [place] [phone] Nurse Practitioner Pain Medicine 10/16/24 Cristy Morton MD [facility]0 [facility] [place] [place] [address] Assigned Pediatric Specialist Provider 11/03/24 documented as of this encounter
--- OUTSIDE RECORDS SUMMARY | 2024-12-06 00:37 | XMS_ITS | Encounter Summary ---
Author Organization [facility] Address [address] [place] [address] Care Team Providers Care Page Designer Name Role Phone Va Glez MD Primary Care Provider Va Glez MD Unavailable Christy CampuzanoC Unavailable [phone] Hans Cannon MD Unavailable Estella Hassan [facility] Unavailable [phone] Josh Cordero MD, Madhuri Unavailable [phone] John Webb MD Unavailable John Webb MD Unavailable Estella Hassan [facility] Unavailable [phone] Lindsay Carey OD Unavailable [phone] Richard Kam MD Unavailable Gaby Vila DO Unavailable Rosemarie Mcdowell RN Unavailable Mitra Kendall WHARF HAND Unavailable [phone] Lizet Mann PA-C Unavailable [phone] Ravi Brownlee MD Unavailable Manuel Ahn OD Unavailable Thalia Charles [facility] Unavailable [phone] NicolasGaurav Ray DISASSEMBLER PRODUCT RESIDENT PHYSICIAN Unavailable [phone] Debbie Mann MD Unavailable [phone] Hakeem Chacko MB Unavailable Debbie Mann MD Unavailable [phone] Timothy Tejada MD Unavailable [phone] Timothy Tejada MD Unavailable [phone] Elsie Roberts DISASSEMBLER PRODUCT RESIDENT PHYSICIAN Unavailable + Cristy Morton MD Unavailable [phone] Georgie Anguiano PA-C Unavailable [phone] Encounter Details Date Type Department Care Team (Late st Contact Info) Description 11/02/2024 [facility] Medical Advice [address] [place] [address] Cary Tinsley, RN Social History Tobacco Use Types Packs/Day [...] re latives? 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 Gender Identity Not on file Sexual Orientation Not on file Occupation Industry Job Start Date Job End Date Not on file Not on file Not on file Not on file documented as of this encounter Plan of Treatment Upcoming Encounters Date Type Department Care Team (Late st Contact Info) Description 12/11/2024 2:10 PM CDT Therapy Visit [place] [address] [place] [address] Shanta Cooper, PT 12/14/2024 11:20 AM CDT Office Visit [facility] [address] [place] [address] Lizet Mann PA-C [address] [place] [address] 12/17/2024 2:10 PM CDT Office Visit [facility] Orthopedic [address] [place] [phone] Richard Kam MD [address] [place] [address] 12/19/2024 8:20 AM CDT Therapy Visit [place] [address] [place] [address] Shanta Cooper, PT 12/24/2024 5:00 PM CDT Therapy Visit [place] [address] [place] [phone] Pattie Casillas, PT 12/25/2024 10:20 AM CDT Therapy Visit [place] [address] [place] [phone] Shanta Cooper, PT 01/03/2025 1:00 PM CDT Office Visit [facility] [address] [place] [phone] Estella Hassan, [facility] [address] [place] [address] 01/03/2025 1:30 PM CDT Office Visit [facility] [address] [place] [phone] [place] [address] [place], [place] [phone] 01/08/2025 1:15 PM CDT Office Visit [facility] 2945 [facility] 200 [place] [phone] Hakeem Chacko MBBS [address] [place] [address] Scheduled Procedures Name Priority Associated Diagnoses Date/Ti [...] job and will access resources that the [employer] offers. . Sarted new job 4. Continue [...] by household income. 2. I will contact [employer] [facility] to ask about medicare plans and if there are saving programs I qualify for by by calling [phone]. 3. I will see if I am eligible for unemployment after losing my job. I will call [phone] to ask for assistance with unemployment application. 4. I will apply for jobs. I will work with [facility] in finding a job (Empowerment.) 5. I will access [employer] and ask about financial resources (such as [...] with Ronnie. 3. I will meet with [facility] pediatric social worker Manjula Gresham. 4. I will look in to attending an IOP program. I will [facility] and number provided for [facility] Behavioral Access - [phone] to schedule assessment fr IOP program. 5. I will go to [facility] if I have concerning mental health symptoms. 6. I will access [facility] Crisis if needed by calling [phone]. 7. I will consider calling [facility] Adult Mental health intake at [phone]. documented as of this encounter Visit Diagnoses [...] documented as of this encounter Care Teams Page Designer Relationship Specialty [place] [address] [place], [place] [phone] PCP - General Family Practice 07/11/14 [place] [address] [place] [address] Assigned PCP 12/16/11 Christy Campuzano PA-C [address] [place] [address] 946202 Referring Physician Family Medicine 04/22/20 Hans Cannon MD [address] [place] [address] 843172 Resident Pulmonary Disease 04/22/20 Estella Hassan, [facility] [address] [facility] [address] Pharmacist Pharmacist 05/26/20 Elaina Moreno MD [address] [place] [address] Cardiovascular & Thoracic Surgery 08/06/20 John Webb MD [address] 760695 Cardiovascular Disease 08/25/21 John Webb MD [address] [facility] [address] [place] [address] Cardiovascular Disease 08/25/21 Estella Hassan, [facility] [address] [place] [address] Assigned MTM Pharmacist 12/09/21 Lindsay Carey OD [address] [facility] [place] [address] Ophthalmology 01/29/22 Richard Kam MD [address] [place] [address] 765985 Assigned Musculoskeletal Provider 08/14/22 [place] [address] 281757 Assigned Neuroscience Provider 01/01/23 12/03/24 Rosemarie Mcdowell, RN Dye Lab Technician Diabetes Education 03/17/23 Mitra Kendall, WHARF HAND Lead Skid Strapper Primary Care - CC 12/12/23 Lizet Mann PA-C [address] [place] [address] Assigned Cancer Care Provider 01/04/24 Ravi Brownlee MD [address] [place] [address] Assigned Pulmonology Provider 01/04/24 Manuel Ahn OD [address]341 [place] [address] Scene And Lighting Design Lecturer 01/05/24 Thalia Charles [facility] [address] [place], [place] [phone] Pharmacist Pharmacy 01/26/24 Gaurav Valenzuela APRN RESIDENT PHYSICIAN [address] [facility] 106 [place] [address] Assigned Sleep Provider 02/04/24 Debbie Mann MD 1600 [facility] 200 [place] [address] Cardiovascular Disease 02/24/24 Hakeem Chacko MBBS [address] [place], [place] [phone] Assigned Rheumatology Provider 04/05/24 Debbie Mann MD 1600 [facility] 200 [place], [place] [phone] Assigned Heart and Vascular Provider 05/06/24 Timothy Tejada MD 6341 [facility] [place] [phone] Ophthalmology 05/29/24 Timothy Tejada MD [address] [facility] [place] [phone] Assigned Surgical Provider 06/03/24 Elsie Roberts APRN RESIDENT PHYSICIAN 1600 [facility] 101 [address] [place] [address] Nurse Practitioner Pain Medicine 10/16/24 Cristy Morton MD [address] [place] [address] [address]O [id number] Assigned Pediatric Specialist Provider 11/03/24 Georgie Anguiano PA-C [address] 990645 Assigned Neuroscience Provider 12/04/24 documented as of this encounter
--- OUTSIDE RECORDS SUMMARY | 2024-12-06 00:38 | XMS_ITS | Encounter Summary ---
Author Organization [facility] Address [address] [place] [address] Care Team Providers Care Health Services Rn Name Role Phone Va Glez MD Primary Care Provider Va Glez MD Unavailable Kerry Bernal RN Unavailable Ravi Barillas DPM Unavailable [phone] Christy Campuzano PA-C Unavailable [phone] Hans Cannon MD Unavailable Mitra Kendall ENROLLMENT ELIGIBILITY REPRESENTATIVE Unavailable [phone] Burt Jovel MD Unavailable [phone] Estella Hassan [facility] Unavailable Reji Chavez MD Unavailable [phone] Josh Cordero MD, Madhuri Unavailable [phone] Josh Cordero MD, Madhuri Unavailable [phone] Kelsi Hassan MD Unavailable [phone] John Webb MD Unavailable [phone] John Webb MD Unavailable [phone] Estella Hassan [facility] Unavailable Nav Hughes MD Unavailable [phone] Cassandra Mendoza MD Unavailable Estella Hassan RPH Unavailable Mitra Kendall ENROLLMENT ELIGIBILITY REPRESENTATIVE Unavailable Aurelio Lindsay Kenzie OD Unavailable Ravi Brownlee MD Unavailable Kye Arabella MA Unavailable [phone] Richard Kam MD Unavailable Marisol Patel RPH Unavailable Gaby Vila DO Unavailable Rosemarie Mcdowell RN Unavailable Ravi Brownlee MD Unavailable Mitra Kendall ENROLLMENT ELIGIBILITY REPRESENTATIVE Unavailable Lizet MannC Unavailable Ravi Brownlee MD Unavailable Nav Hughes MD Unavailable [phone] Manuel Ahn OD Unavailable Kye Arabella MA Unavailable [phone] Thalia Charles RP Unavailable Gaurav Valenzuela APRN HYDRAULIC SPINNER Unavailable Manuel Ahn OD Unavailable Debbie Mann MD Unavailable Hakeem Chacko Unavailable Debbie Mann MD Unavailable Timothy Tejada MD Unavailable Timothy Tejada MD Unavailable Elsie Roberts APRN HYDRAULIC SPINNER Unavailable + Cristy Morton MD Unavailable Georgie Anguiano PA-C Unavailable [phone] Encounter Details Date Type Department Care Team (Late st Contact Info) Description 06/16/2020 MyC Medical Advice [facility] Mental Health & Addiction [address] [address] Nilsa Harper LICSW [address], [address] [place], [place] [address] Social History Tobacco Use Types Packs/Day Years [...] Answer Date Recorded PHQ-2 Score 0 06/05/2020 [facility] [place] of Occupat ional Health - Occupational Stress [...] file 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 4th [place] [address] Richard Kam MD [address] [place] [address] 12/19/2024 8:20 AM CDT Therapy Visit [address] [address] Shanta Cooper, PT 12/24/2024 5:00 PM CDT Therapy Visit [address] [address] Pattie Casillas, PT 12/25/2024 10:20 AM CDT Therapy Visit [address] [address] Shanta Cooper, PT 01/03/2025 1:00 PM CDT Office Visit [address] [phone] Estella Hassan, [facility] [address] [place] [address] 01/03/2025 1:30 PM CDT Office Visit [address] [address] Va Glez MD [address] [place] [id number] 01/08/2025 1:15 PM CDT Office Visit [address] [phone] Hakeem Chacko MBBS [address] [place] [address] Scheduled Procedures Name Priority Associated Diagnoses Date/Ti [...] COVID-19 01/22/2022 01/22/2022 01/24/2022 1:05 PM FOOD CRITIC Rule Out COVID-19 01/25/2022 01/25/2022 01/25/2022 5:21 AM FOOD CRITIC Influenza 01/25/2022 01/25/2022 02/01/2022 11:4 1 PM FOOD CRITIC Rule Out COVID-19 07/29/2022 07/29/2022 07/31/2022 11:17 AM CDT Rule Out COVID-19 03/23/2023 03/23/2023 03/23/2023 6:30 PM FOOD CRITIC COVID-19 03/23/2023 03/23/2023 04/13/2023 11:4 0 PM FOOD CRITIC Rule Out COVID-19 06/05/2023 06/05/2023 06/05/2023 5:53 PM CDT Rule Out COVID-19 11/06/2023 11/06/2023 11/06/2023 11:05 PM CDT Rule Out COVID-19 11/20/2023 11/20/2023 11/20/2023 6:43 PM CDT Rule Out COVID-19 12/27/2023 12/27/2023 12/29/2023 1:37 PM CDT Rule Out COVID-19 03/01/2024 03/01/2024 03/01/2024 1:11 PM FOOD CRITIC Rule Out COVID-19 07/18/2024 07/18/2024 07/19/2024 5:52 PM CDT Rule Out COVID-19 10/17/2024 10/17/2024 10/17/2024 11:23 PM CDT Rule Out C-difficile 11/04/2024 11/04/2024 025 1:55 AM CDT Assessment Noted Time PHQ-9 Depression Total Score: 2 06/06/19 21 12:47 PM CDT documented as of this encounter Care Teams Health Services Rn Relationship Specialty [place] [address] [place] [address] PCP - General Family Practice 07/11/14 [place] [address] [place] [address] Assigned PCP 12/16/11 Kerry Bernal, INOCENCIO Personal Advocate & Liaison (PAL) 01/08/19 07/10/23 Ravi Barillas DPM [address] [address] Assigned Musculoskeletal Provider 03/23/20 10/30/21 Christy Campuzano PA-C [address] [place] [address] 315202 Referring Physician Family Medicine 04/22/20 Hans Cannon MD [address] [place] [address] Resident Pulmonary Disease 04/22/20 Mitra Kendall, ENROLLMENT ELIGIBILITY REPRESENTATIVE Lead Conservation Or Heritage Architect Primary Care - CC 01/08/1901/12 Burt Jovel MD Internal Medicine 05/08/20 12/13/23 Estella Hassan, [facility] [address] [place] [address] Pharmacist Pharmacist 05/26/20 Reji Chavez MD [address] [place] [phone] Assigned Heart and Vascular Provider 05/18/20 10/30/21 Elaina Moreno MD [address] [place] [address] [id number] Assigned Surgical Provider 05/18/20 11/19/22 Elaina Moreno MD [address] [place] [address] 467755 Cardiovascular & Thoracic Surgery 08/06/20 Kelsi Hassan MD [address] [place] [address] Assigned Pulmonology Provider 06/28/21 02/05/22 John Webb MD [address] [address] Cardiovascular Disease 08/25/21 John Webb MD [address] 252285 Cardiovascular Disease 08/25/21 Estella Hassan, [facility] [address] [place] [address] Assigned MTM Pharmacist 09/05/21 Nav Hughes MD [address] [place] [address] Assigned Heart and Vascular Provider 10/31/21 09/03/23 Cassandra Mendoza MD ORTHOPAEDIC SURGERY [facility] [address] [address] Assigned Musculoskeletal Provider 10/31/21 08/13/22 Estella Hassan, [facility] [address] [place] [address] Assigned MTM Pharmacist 12/09/21 Mitra Kendall, [facility] Lead Conservation Or Heritage Architect Primary Care - CC 01/26/2210/28 Lindsay Carey OD [address]305 [facility] [address] [address] Ophthalmology 01/29/22 Ravi Brownlee MD [address] [address] Assigned Pulmonology Provider 02/06/22 09/03/23 Arabella Fishman MA Financial Resource Worker 02/22/22 02/23/22 Richard Kam MD 500 [place], [place] [address] Assigned Musculoskeletal Provider 08/14/22 Marisol Patel, [facility] [address] [id number] Pharmacist Pharmacist 11/22/22 01/09/23 [place] [address] [place], [address] 848337 Assigned Neuroscience Provider 01/01/23 12/03/24 Rosemarie Mcdowell, RN Equal Employment Opportunity Officer Diabetes Education 03/17/23 Ravi Brownlee MD [address] [place] [address] 678045 Assigned Heart and Vascular Provider 09/04/23 01/03/24 Mitra Kendall, [facility] Lead Conservation Or Heritage Architect Primary Care - CC 12/12/23 Lizet Mann PA-C [address] [place] [address] Assigned Cancer Care Provider 01/04/24 Ravi Brownlee MD [address] [place] [address] Assigned Pulmonology Provider 01/04/24 Nav Hughes MD [address] [place] [address] [address] 209775 Assigned Heart and Vascular Provider 01/04/24 05/05/24 Manuel Ahn OD 6341 [facility] [place] [address] Remittance Clerk 01/05/24 Arabella Fishman MA Financial Resource Worker 01/06/24 03/19/24 Thalia Charles [facility] [address] [place], [place] [phone] Pharmacist Pharmacy 01/26/24 Gaurav Valenzuela APRN HYDRAULIC SPINNER 606 [facility] [address] [place] [address] Assigned Sleep Provider 02/04/24 Manuel Ahn OD 6341 [place], [place] 142992 Assigned Surgical Provider 02/04/24 06/02/24 Debbie Mann MD 1600 [facility] 200 [place] [address] Cardiovascular Disease 02/24/24 Hakeem Chacko MBBS 2945 [place] [address] Assigned Rheumatology Provider 04/05/24 Debbie Mann MD 1600 [facility] 200 [place] [address] Assigned Heart and Vascular Provider 05/06/24 Timothy Tejada MD 6341 [place] [phone] Ophthalmology 05/29/24 Timothy Tejada MD 6341 [place] [address] Assigned Surgical Provider 06/03/24 Elsie Roberts APRN HYDRAULIC SPINNER 1600 [facility] [address] [address] Nurse Practitioner Pain Medicine 10/16/24 Cristy Morton MD [address] [facility] [address] [id number] Assigned Pediatric Specialist Provider 11/03/24 Georgie Anguiano PA-C [address] [address] Assigned Neuroscience Provider 12/04/24 documented as of this encounter
--- OUTSIDE RECORDS SUMMARY | 2024-12-06 00:38 | XMS_ITS | Encounter Summary ---
Author Organization [facility] Address [address] [place] [address] Care Team Providers Care Rn Plastics Name Role Phone Va Glez MD Primary Care Provider [phone] Va Glez MD Unavailable Christy Campuzano PAUniqueC Unavailable [phone] Hans Cannon MD Unavailable [phone] Estella Hassan [facility] Unavailable Josh Cordero MD, Madhuri Unavailable [phone] John Webb MD Unavailable John Webb MD Unavailable [phone] Estella Hassan [facility] Unavailable Lindsay Carey OD Unavailable Richard Kam MD Unavailable Gaby Vila DO Unavailable Rosemarie Mcdowell RN Unavailable [phone] Mitra Kendall CHIMNEY CONSTRUCTION SUPERVISOR Unavailable [phone] Lizet Mann PA-C Unavailable Ravi Brownlee MD Unavailable Nav Hughes MD Unavailable [phone] Manuel Ahn Kunal OD Unavailable [phone] Thalia Charles [facility] Unavailable [phone] Gaurav Valenzuela CONVERTING OPERATOR ORTHOTIC/PROSTHETIC PRACTITIONER Unavailable [phone] Manuel Ahn Kunal OD Unavailable [phone] Debbie Mann MD Unavailable [phone] Hakeem Chcako [facility] Unavailable Debbie Mann MD Unavailable [phone] Timothy Tejada MD Unavailable [phone] Timothy Tejada MD Unavailable [phone] Elsie Roberts CONVERTING OPERATOR ORTHOTIC/PROSTHETIC PRACTITIONER Unavailable + Cristy Morton MD Unavailable [phone] Georgie Anguiano PA-C Unavailable [phone] Encounter Details Date Type Department Care Team (Late st Contact Info) Description 04/25/2024 [facility] [address] [place] [address] [facility] Social History Tobacco Use Types Packs/Day [...] re latives? 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 Gender Identity Not on file Sexual Orientation Not on file Occupation Industry Job Start Date Job End Date Not on file Not on file Not on file Not on file documented as of this encounter Plan of Treatment Upcoming Encounters Date Type Department Care Team (Late st Contact Info) Description 12/11/2024 2:10 PM CDT Therapy Visit [address] [phone] Shanta Cooper, PT 12/14/2024 11:20 AM CDT Office Visit [facility] [address] [place] [address] [place] [address] Lizet Mann PA-C [id number] [place] [address] 12/17/2024 2:10 PM CDT Office Visit [facility] Orthopedic [address] [place] [phone] Richard Kam MD [address] [place] [address] 12/19/2024 8:20 AM CDT Therapy [place] [address] [place] [phone] Shanta Cooper, PT 12/24/2024 5:00 PM CDT Therapy Visit [place] [address] [place] [phone] Pattie Caisllas, PT 12/25/2024 10:20 AM CDT Therapy Visit [facility] [address] [place] [address] Shanta Cooper, MOIZ 01/03/2025 1:00 PM CDT [facility] Visit [facility] [address] [place] [phone] Estella Hassan, [facility] [address] [place] [address] 01/03/2025 1:30 PM CDT Office Visit [facility] [address] [place] [phone] [place] [address] [place], [place] [phone] 01/08/2025 1:15 PM CDT Office Visit [facility] 2945 [facility] 200 [place] [address] Hakeem Chacko MBBS 2945 [place], [place] [phone] Scheduled Procedures Name Priority Associated Diagnoses Date/Ti me INJECTION, EPIDURAL, TRANSFO RAMINAL APPROACH Cervical radiculitis RELEASE, CARPAL TUNNEL, ENDOSCOPIC Right carpal tunnel syndrome documented as of this encounter Goals Goal Patient Goal Type Associated Problems Recent Progress Patient-Stated? Author Health Maintenance Care Plan HP GENERAL PROBLEM 100%(10/29/19 10:17 AM CDT) No Mitra Kendall, CHIMNEY CONSTRUCTION SUPERVISOR Note: Update on 05/25/22 Barriers: Currently without [...] for health insurance by looking in to [employer] and talking with a FRW. Completed 3. I will look for a new job and will access resources that the [employer] offers. . Sarted new job 4. Continue [...] by household income. 2. I will contact [facility] to ask about medicare plans and if there are saving programs I qualify for by by calling [phone]. 3. I will see if I am eligible for unemployment after losing my job. I will call [phone] to ask for assistance with unemployment application. 4. I will apply for jobs. I will work with [employer] in finding a job (Empowerment.) 5. I will access [email or web address] and ask about financial resources (such as [...] Ronnie. 3. I will meet with community mold release worker Manjula Gresham. 4. I will look in to attending an IOP program. I will discuss with my [place] mental Health therapist and number provided for [facility] Behavioral Access - [phone] to schedule assessment fr IOP program. 5. I will go to [facility] if I have concerning mental health symptoms. 6. I will access [facility] Crisis if needed by calling [phone]. 7. I will consider calling [facility] Adult Mental health intake at [phone]. documented as of this encounter Visit Diagnoses [...] accurate information and submit it to the [facility]. 3. I will update CCC Team [...] Time PHQ-9 Depression Total Score: 4 03/28/19 2:25 PM ARTILLERY SPECIALIST documented as of this encounter Care Teams Rn Plastics Relationship Specialty [place] [address] [place] [address] PCP - General Family Practice 07/11/14 [place] [address] [place] [address] Assigned PCP 12/16/11 Christy Campuzano PA-C [address] [place] [address] 617322 Referring Physician Family Medicine 04/22/20 Hans Cannon MD [address] [place] [address] 514172 Resident Pulmonary Disease 04/22/20 Estella Hassan, [facility] 30[address] [place] [address] Pharmacist Pharmacist 05/26/20 Elaina Moreno MD 909 [place] [address] Cardiovascular & Thoracic Surgery 08/06/20 John Webb MD [address] 226465 Cardiovascular Disease 08/25/21 John Webb MD [address] 018795 Cardiovascular Disease 08/25/21 Estella Hassan, [facility] [address] [place] [address] Assigned MTM Pharmacist 12/09/21 Lindsay Carey OD [address] [facility] [address] Ophthalmology 01/29/22 Richard Kam MD 500 [place] [address] Assigned Musculoskeletal Provider 08/14/22 [place] [address] [address] Assigned Neuroscience Provider 01/01/23 12/03/24 Rosemarie Mcdowell, RN Photography Sales Associate Diabetes Education 03/17/23 Mitra Kendall, CHIMNEY CONSTRUCTION SUPERVISOR Lead Greenhouse Or Nursery Transplanter Primary Care - CC 12/12/23 Lizet Mann PA-C [address] [place] [address] Assigned Cancer Care Provider 01/04/24 Ravi Brownlee MD 420 [facility] 276 [place] [address] Assigned Pulmonology Provider 01/04/24 Nav Hughes MD 6405 [facility] [address] [place], [place] [address] Assigned Heart and Vascular Provider 01/04/24 05/05/24 Manuel Ahn, OD 6341 [place] [address] Community Health Nursing Director 01/05/24 Thalia Charles [facility] [address] [place], [place] [phone] Pharmacist Pharmacy 01/26/24 Gaurav Valenzuela APRN ORTHOTIC/PROSTHETIC PRACTITIONER [address] [place] [address] Assigned Sleep Provider 02/04/24 Manuel Ahn, OD 6341 [place] [address] Assigned Surgical Provider 02/04/24 06/02/24 Debbie Mann MD 1600 [facility] [address] 200 [place] [address] Cardiovascular Disease 02/24/24 Hakeem Chacko MBBS 2945 [place] [address] Assigned Rheumatology Provider 04/05/24 Debbie Mann MD 1600 [facility] 200 [place] [address] Assigned Heart and Vascular Provider 05/06/24 Timothy Tejada MD 6341 [place] [phone] Ophthalmology 05/29/24 Timothy Tejada MD 6341 [place] [address] Assigned Surgical Provider 06/03/24 Elsie Roberts APRN ORTHOTIC/PROSTHETIC PRACTITIONER 1600 [facility] 101 [place] [address] Nurse Practitioner Pain Medicine 10/16/24 Cristy Morton MD [address] [place] [address] [address] [address] Assigned Pediatric Specialist Provider 11/03/24 Georgie Anguiano PA-C 6545 [facility] [address] [address] Assigned Neuroscience Provider 12/04/24 documented as of this encounter
--- OUTSIDE RECORDS SUMMARY | 2024-12-06 00:38 | XMS_ITS | Encounter Summary ---
Author Organization [place] Address [address] [place] [address] Care Team Providers Care Rn Hedis Name Role Phone Va Glez MD Primary Care Provider Va Glez MD Unavailable Kerry Bernal RN Unavailable Ravi Barillas DPM Unavailable [phone] Christy Campuzano PA-C Unavailable Hans Cannon MD Unavailable Mitra Kendall INFIRMARY ATTENDANT Unavailable Burt Jovel MD Unavailable [phone] Estella Hassan [facility] Unavailable Reji Chavez MD Unavailable Josh Cordero MD, Madhuri Unavailable [phone] Josh Cordero MD, Madhuri Unavailable [phone] Kelsi Hassan MD Unavailable [phone] John Webb MD Unavailable [phone] John Webb MD Unavailable [phone] Estella Hassan [facility] Unavailable Nav Hughes MD Unavailable [phone] Cassandra Mendoza MD Unavailable Estella Hassan RPH Unavailable Mitra Kendall INFIRMARY ATTENDANT Unavailable Aurelio Lindsay Kenzie OD Unavailable Ravi Brownlee MD Unavailable Kye Arabella MA Unavailable [phone] Richard Kam MD Unavailable Marisol Patel RPH Unavailable Gaby Vila DO Unavailable Rosemarie Mcdowell RN Unavailable Ravi Brownlee MD Unavailable Mitra Kendall INFIRMARY ATTENDANT Unavailable Lizet MannC Unavailable Ravi Brownlee MD Unavailable Nav Hughes MD Unavailable [phone] Manuel Ahn OD Unavailable Kye Arabella MA Unavailable [phone] Thalia Charles RP Unavailable Gaurav Valenzuela APRN RETAIL PARTS PRO Unavailable Manuel Ahn OD Unavailable Debbie Mann MD Unavailable Hakeem Chacko Unavailable Debbie Mann MD Unavailable Timothy Tejada MD Unavailable Timothy Tejada MD Unavailable Elsie Roberts APRN RETAIL PARTS PRO Unavailable + Cristy Morton MD Unavailable [phone] Georgie Anguiano PA-C Unavailable [phone] Encounter Details Date Type Department Care Team (Late st Contact Info) Description 06/12/2020 MyC Medical Advice [facility] [address] [address] Ravi Barillas, DENY [address] [facility] [address] [place] [address] Social History Tobacco Use Types [...] Answer Date Recorded PHQ-2 Score 0 06/05/2020 [facility] [place] [facility] Occupat ional Health - Occupational Stress [...] on file 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 Gender Identity Not on file Sexual [...] Description 12/11/2024 2:10 PM CDT Therapy Visit [facility] Rehabilitation Services [address] [place] [address] Shanta Cooper, MOIZ 12/14/2024 11:20 AM CDT Office Visit [facility] [address] [place] [address] Lizet Mann PA-C [address] [address] [place] [address] 12/17/2024 2:10 PM CDT Office Visit [facility] Orthopedic [facility] [address] [facility] 4th [place] [address] Richard Kam MD [address] [place] [address] 12/19/2024 8:20 AM CDT Therapy Visit [address] [address] Shanta Cooper, PT 12/24/2024 5:00 PM CDT Therapy Visit [address] [address] Pattie Casillas, PT 12/25/2024 10:20 AM CDT Therapy Visit [address] [address] Shanta Cooper, PT 01/03/2025 1:00 PM CDT Office Visit [address] [address] Estella Hassan, [facility] [address] [place] [address] 01/03/2025 1:30 PM CDT Office Visit [address] [address] [place] [id number] [place] [address] 01/08/2025 1:15 PM CDT Office Visit [address] [phone] Hakeem Chacko MBBS [address] [place] [address] [place] [address] Scheduled Procedures Name Priority Associated Diagnoses Date/Ti me INJECTION, EPIDURAL, TRANSFO RAMINAL APPROACH Cervical radiculitis RELEASE, CARPAL TUNNEL, ENDOSCOPIC Right carpal tunnel syndrome documented as of this encounter Visit Diagnoses Not on filedocumented in this encounter Additional Health Concerns Infection Onset Date Last Indicated Resolved Time Rule Out COVID-19 06/22/2021 06/22/2021 06/23/2021 8:58 PM CDT Rule Out COVID-19 01/22/2022 01/22/2022 01/24/2022 1:05 PM ORDNANCE TECHNICIAN Rule Out COVID-19 01/25/2022 01/25/2022 01/25/2022 5:21 AM ORDNANCE TECHNICIAN Influenza 01/25/2022 01/25/2022 02/01/2022 11:4 1 PM ORDNANCE TECHNICIAN Rule Out COVID-19 07/29/2022 07/29/2022 07/31/2022 11:17 AM CDT Rule Out COVID-19 03/23/2023 03/23/2023 03/23/2023 6:30 PM ORDNANCE TECHNICIAN COVID-19 03/23/2023 03/23/2023 04/13/2023 11:4 0 PM ORDNANCE TECHNICIAN Rule Out COVID-19 06/05/2023 06/05/2023 06/05/2023 5:53 PM CDT Rule Out COVID-19 11/06/2023 11/06/2023 11/06/2023 11:05 PM CDT Rule Out COVID-19 11/20/2023 11/20/2023 11/20/2023 6:43 PM CDT Rule Out COVID-19 12/27/2023 12/27/2023 12/29/2023 1:37 PM CDT Rule Out COVID-19 03/01/2024 03/01/2024 03/01/2024 1:11 PM ORDNANCE TECHNICIAN Rule Out COVID-19 07/18/2024 07/18/2024 07/19/2024 5:52 PM CDT Rule Out COVID-19 10/17/2024 10/17/2024 10/17/2024 11:23 PM CDT Rule Out C-difficile 11/04/2024 11/04/2024 025 1:55 AM CDT Assessment Noted Time PHQ-9 Depression Total Score: 2 06/06/19 21 12:47 PM CDT documented as of this encounter Care Teams Rn Hedis Relationship Specialty [place] [address] [place] [address] PCP - General Family Practice 07/11/14 [place] [address] [place] [address] Assigned PCP 12/16/11 Kerry Bernal RN Personal Advocate & Liaison (PAL) 01/08/19 07/10/23 Ravi Barillas DPM [address] [address] Assigned Musculoskeletal Provider 03/23/20 10/30/21 Christy Campuzano PA-C [address] [place] [address] [id number] Referring Physician Family Medicine 04/22/20 Hans Cannon MD [address] [place] [address] Resident Pulmonary Disease 04/22/20 Mitra Kendall, INFIRMARY ATTENDANT Lead Rapier Insertion Loom Fixer Primary Care - CC 01/08/1901/12 Burt Jovel MD Internal Medicine 05/08/20 12/13/23 Estella Hassan, [facility] [address] [place] [address] Pharmacist Pharmacist 05/26/20 Reji Chavez MD [address] [facility] [address] [place] [phone] Assigned Heart and Vascular Provider 05/18/20 10/30/21 Elaina Moreno MD [address] [place] [address] 006585 Assigned Surgical Provider 05/18/20 11/19/22 Elaina Moreno MD [address] [place] [address] 879875 Cardiovascular & Thoracic Surgery 08/06/20 Kelsi Hassan MD [address] [facility] [place], [place] 087[address] Assigned Pulmonology Provider 06/28/21 02/05/22 John Webb MD [address] 023735 Cardiovascular Disease 08/25/21 John Webb MD [address] 485155 Cardiovascular Disease 08/25/21 Estella Hassan, [facility] [address] [place] [address] Assigned MTM Pharmacist 09/05/21 Nav Hughes MD [address] [place] [address] Assigned Heart and Vascular Provider 10/31/21 09/03/23 Cassandra Mendoza MD ORTHOPAEDIC SURGERY [facility] [address] Assigned Musculoskeletal Provider 10/31/21 08/13/22 Estella Hassan, [facility] [address] [place] [address] Assigned MTM Pharmacist 12/09/21 Mitra Kendall, [facility] Lead Rapier Insertion Loom Fixer Primary Care - CC 01/26/2210/[address] [facility]5 [facility] [place] [place]O [address] Ophthalmology 01/29/22 Ravi Brownlee MD [address] 335815 Assigned Pulmonology Provider 02/06/22 09/03/23 Arabella Fishman MA Financial Resource Worker 02/22/22 02/23/22 Richard Kam MD 500 [place], [place] 980925 Assigned Musculoskeletal Provider 08/14/22 Marisol Patel, [facility] [address] [id number] Pharmacist Pharmacist 11/22/22 01/09/23 [place] [address] [place], [address] 439847 Assigned Neuroscience Provider 01/01/23 12/03/24 Rosemarie Mcdowell, RN Gear Tester Diabetes Education 03/17/23 Ravi Brownlee MD [address] [place] [address] 157035 Assigned Heart and Vascular Provider 09/04/23 01/03/24 Mitra Kendall, [facility] Lead Rapier Insertion Loom Fixer Primary Care - CC 12/12/23 Lizet Mann PA-C [address] [place] [address] Assigned Cancer Care Provider 01/04/24 Ravi Brownlee MD [address] [place] [address] Assigned Pulmonology Provider 01/04/24 Nav Hughes MD [address] [place] [address] [address] [address] Assigned Heart and Vascular Provider 01/04/24 05/05/24 Manuel Ahn OD 6341 [facility] [place] [address] Customer Care Coordinator 01/05/24 Arabella Fishman MA Financial Resource Worker 01/06/24 03/19/24 Thalia Charles [facility] [address] [place], [place] [phone] Pharmacist Pharmacy 01/26/24 Gaurav Valenzuela APRN RETAIL PARTS PRO 606 [facility] 106 [place] [address] Assigned Sleep Provider 02/04/24 Manuel Ahn OD 6341 [place], [place] 449842 Assigned Surgical Provider 02/04/24 06/02/24 Debbie Mann MD 1600 [facility] 200 [place] [address] Cardiovascular Disease 02/24/24 Hakeem Chacko MBBS 2945 [place] [address] Assigned Rheumatology Provider 04/05/24 Debbie Mann MD 1600 [facility] 200 [place] [address] Assigned Heart and Vascular Provider 05/06/24 Timothy Tejada MD 6341 [place] [address] Ophthalmology 05/29/24 Timothy Tejada MD 6341 [place] [address] Assigned Surgical Provider 06/03/24 Elsie Roberts APRN RETAIL PARTS PRO 1600 [facility] [place] [address] [address] Nurse Practitioner Pain Medicine 10/16/24 Cristy Morton MD [facility] [address] [id number] Assigned Pediatric Specialist Provider 11/03/24 Georgie Anguiano PA-C [address] [address] Assigned Neuroscience Provider 12/04/24 documented as of this encounter
--- OUTSIDE RECORDS SUMMARY | 2024-12-06 00:38 | XMS_ITS | Encounter Summary ---
Author Organization [place] Address [address] [place] [address] Care Team Providers Care Hat Copyist Name Role Phone Va Glez MD Primary Care Provider [phone] Va Glez MD Unavailable Christy CampuzanoC Unavailable [phone] Hans Cannon MD Unavailable [phone] Estella Hassan [facility] Unavailable Josh Cordero MD, Madhuri Unavailable [phone] John Webb MD Unavailable John Webb MD Unavailable [phone] Estella Hassan [facility] Unavailable Lindsay Carey OD Unavailable [phone] Richard Kam MD Unavailable Gaby Vila DO Unavailable Rosemarie Mcdowell RN Unavailable Mitra Kendall SOCIAL SERVICES COORDINATOR Unavailable [phone] Lizet Mann PA-C Unavailable Ravi Brownlee MD Unavailable [phone] Manuel Ahn OD Unavailable Thalia Charles [facility] Unavailable [phone] Nicolas Gaurav Bell SNAG GRINDER CIRCUIT RIDER Unavailable [phone] Debbie Mann MD Unavailable [phone] Hakeem Chacko MB Unavailable Debbie Mann MD Unavailable [phone] Timothy Tejada MD Unavailable [phone] Timothy Tejada MD Unavailable [phone] Elsie Roberts SNAG GRINDER CIRCUIT RIDER Unavailable + Cristy Morton MD Unavailable [phone] Encounter Details Date Type Department Care Team (Late st Contact Info) Description 11/08/2024 [facility] [address] 5th [place] [address] Jens Colon IV, MD [address] [place] [address] Cervical radiculitis (Primary Dx) Social History Tobacco Use Types [...] Answer Date Recorded PHQ-2 Score 6 11/01/2024 [facility] - [...] file 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 Gender Identity Not on file Sexual Orientation Not on file Occupation Industry Job Start Date Job End Date Not on file Not on file Not on file Not on file documented as of this encounter Plan of Treatment Upcoming Encounters Date Type Department Care Team (Late st Contact Info) Description 12/11/2024 2:10 PM CDT Therapy Visit [place] [address] [place] [phone] Shanta Cooper, PT 12/14/2024 11:20 AM CDT Office Visit [facility] [address] [place] [address] [place] [address] Lizet Mann PA-C [address] [place] [address] 12/17/2024 2:10 PM CDT Office Visit [facility] Orthopedic [address] [place] [address] Richard Kma MD [address] [place] [address] 12/19/2024 8:20 AM CDT Therapy Visit [place] [address] [place] [phone] Shanta Cooper, PT 12/24/2024 5:00 PM CDT Therapy Visit [address] [place] [phone] Pattie Casillas, PT 12/25/2024 10:20 AM CDT Therapy Visit [place] [address] [place] [address] Shanta Cooper, MOIZ 01/03/2025 1:00 PM CDT Office Visit [facility] [address] [place] [phone] Estella Hassan, [facility] 3033 [place] [address] 01/03/2025 1:30 PM CDT Office Visit [facility] [address] [place] [phone] [place] [address] [place], [place] [phone] 01/08/2025 1:15 PM CDT Office Visit [facility] 2945 [facility] 200 [place] [address] Hakeem Chacko MBBS 2945 [place] [address] Scheduled Procedures Name Priority Associated Diagnoses Date/Ti [...] my yearly preventive visit. 4. Apply for [facility] as I currently am without insurance.Going to [...] for health insurance by looking in to [employer] and talking with a FRW. Completed 3. I will look for a new job and will access resources that the [employer] offers. . Sarted new job 4. Continue [...] by household income. 2. I will contact [facility] to ask about medicare plans and if there are saving programs I qualify for by by calling [phone]. 3. I will see if I am eligible for unemployment after losing my job. I will call [phone] to ask for assistance with unemployment application. 4. I will apply for jobs. I will work with [employer] in finding a job (Empowerment.) 5. I will access [employer] and ask about financial resources (such as [...] I will continue working with therapist at [facility]. 2. I will establish with Psychiatry. Planning to schedule with Ronnie. 3. I will meet with community community service worker Manjula Gresham. 4. I will look in to attending an IOP program. I will discuss with my [facility] therapist and number provided for [facility] Behavioral Access - [phone] to schedule assessment fr IOP program. 5. I will go to [facility] if I have concerning mental health symptoms. 6. I will access [facility] Crisis if needed by calling [phone]. 7. I will consider calling [facility] Adult Mental health intake at [phone]. documented as of this encounter Visit Diagnoses Diagnosis Cervical radiculitis- Primary Brachial neuritis or radiculitis nos documented in [...] documented as of this encounter Care Teams Hat Copyist Relationship Specialty [place] [address] [place], [place] [phone] PCP - General Family Practice 07/11/14 [place] [address] [place] [address] Assigned PCP 12/16/11 Christy Campuzano PA-C [address] [place] [address] 946852 Referring Physician Family Medicine 04/22/20 Hans Cannon MD [address] [place] [address] 204072 Resident Pulmonary Disease 04/22/20 Estella Hassan, [facility] 30[address] [place] [address] Pharmacist Pharmacist 05/26/20 Elaina Moreno MD 909 [place] [address] Cardiovascular & Thoracic Surgery 08/06/20 John Webb MD [address] 170705 Cardiovascular Disease 08/25/21 John Webb MD [address] [facility] [address] [address] Cardiovascular Disease 08/25/21 Estella Hassan, [facility] 3033 [place] [address] Assigned MTM Pharmacist 12/09/21 Lindsay Carey OD [address] [facility] [place] [address] Ophthalmology 01/29/22 Richard Kam MD [address] [place] [address] 299665 Assigned Musculoskeletal Provider 08/14/22 [place] [address] 080657 Assigned Neuroscience Provider 01/01/23 12/03/24 Rosemarie Mcdowell, RN Rehab Rn Diabetes Education 03/17/23 Mitra Kendall, SOCIAL SERVICES COORDINATOR Lead Signal Fitter Primary Care - CC 12/12/23 Lizet Mann PA-C [address] [place] [address] Assigned Cancer Care Provider 01/04/24 Ravi Brownlee MD [address] [place] [address] Assigned Pulmonology Provider 01/04/24 Manuel Ahn OD 6341 [place] [address] Peritoneal Dialysis Registered Nurse 01/05/24 Thalia Charles [facility] [address] [place], [place] [phone] Pharmacist Pharmacy 01/26/24 Gaurav Valenzuela APRN CIRCUIT RIDER [address] [facility] 106 [place] [address] Assigned Sleep Provider 02/04/24 Debbie Mann MD 1600 [facility] 200 [place] [address] Cardiovascular Disease 02/24/24 Hakeem Chacko MBBS 2945 [place], [place] [phone] Assigned Rheumatology Provider 04/05/24 Debbie Mann MD 1600 [facility] 200 [place], [place] [phone] Assigned Heart and Vascular Provider 05/06/24 Timothy Tejada MD 6341 [facility] [place] [phone] Ophthalmology 05/29/24 Timothy Tejada MD 6341 [facility] [place] [phone] Assigned Surgical Provider 06/03/24 Elsie Roberts APRN [facility] [address] [place] [address] [address] [place] [address] Nurse Practitioner Pain Medicine 10/16/24 Cristy Morton MD [address] [place] [address] [address] [phone] Assigned Pediatric Specialist Provider 11/03/24 documented as of this encounter
--- OUTSIDE RECORDS SUMMARY | 2024-12-06 00:38 | XMS_ITS | Encounter Summary ---
Author Organization [facility] Address [address] [place] [address] Care Team Providers Care Traffic Controller Cable Name Role Phone Va Glez MD Primary Care Provider Va Glez MD Unavailable Christy CampuzanoC Unavailable [phone] Hans Cannon MD Unavailable Estella Hassan [facility] Unavailable Josh Cordero MD, Madhuri Unavailable [phone] John Webb MD Unavailable John Webb MD Unavailable Estella Hassan [facility] Unavailable Lindsay Carey OD Unavailable Richard Kam MD Unavailable Gaby Vila DO Unavailable Rosemarie Mcdowell RN Unavailable Mitra Kendall BOAT OPERATOR Unavailable [phone] Lizet Mann PA-C Unavailable Ravi Brownlee MD Unavailable Manuel Ahn OD Unavailable Thalia Charles [facility] Unavailable [phone] Gaurav Valenzuela TRIMMER MEAT MANAGER INTELLIGENCE Unavailable [phone] Debbie Mann MD Unavailable [phone] Hakeem Chacko MB Unavailable Debbie Mann MD Unavailable [phone] Timothy Tejada MD Unavailable [phone] Timothy Tejada MD Unavailable [phone] Alejandra Elsie Jennifer TRIMMER MEAT MANAGER INTELLIGENCE Unavailable + Encounter Details Date Type Department Care Team (Latest Contact Info) Description 11/01/2024 Travel Social History Tobacco Use Types Packs/Day [...] re latives? 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 Gender Identity Not on file Sexual Orientation Not on file Occupation Industry Job Start Date Job End Date Not on file Not on file Not on file Not on file documented as of this encounter Plan of Treatment Upcoming Encounters Date Type Department Care Team (Late st Contact Info) Description 12/11/2024 2:10 PM CDT Therapy Visit [address] [phone] Shanta Cooper, PT 12/14/2024 11:20 AM CDT Office Visit [facility] [address] [place] [phone] Lizet Mann PA-C [address] [place] [address] 12/17/2024 2:10 PM CDT Office Visit [facility] [address] [place] [address] 4th [place] [phone] Richard aKm MD [address] [place] [address] 12/19/2024 8:20 AM CDT Therapy Visit [address] [phone] Shanta Cooper, PT 12/24/2024 5:00 PM CDT Therapy Visit [address] [phone] Pattie Casillas, PT 12/25/2024 10:20 AM CDT Therapy Visit [address] [phone] Shanta Cooper, PT 01/03/2025 1:00 PM CDT Office Visit [facility] [address] [place] [phone] Estella Hassan, [facility] [address] [place] [address] 01/03/2025 1:30 PM CDT Office Visit [facility] [address] [place] [phone] [place] [address] [place] [address] 01/08/2025 1:15 PM CDT Office Visit [facility] 2945 [facility] 200 [place] [address] Hakeem Chacko MBBS 2945 [place] [address] Scheduled Procedures Name Priority Associated Diagnoses Date/Ti [...] for health insurance by looking in to [employer] and talking with a FRW. Completed 3. I will look for a new job and will access resources that the [employer] offers. . Sarted new job 4. [...] by household income. 2. I will contact [facility] to ask about medicare plans and if there are saving programs I qualify for by by calling [phone]. 3. I will see if I am eligible for unemployment after losing my job. I will call [phone] to ask for assistance with unemployment application. 4. I will apply for jobs. I will work with [employer] [facility] in finding a job (Empowerment.) 5. I will access [employer] and ask about financial resources (such as [...] continue working with therapist at [facility]. 2. I will establish with Psychiatry. Planning to schedule with Ronnie. 3. I will meet with community drop worker Manjula Gresham. 4. I will look in to attending an IOP program. I will discuss with my [facility] therapist and number provided for [facility] Behavioral Access - [phone] to schedule assessment fr IOP program. 5. I will go to [facility] if I have concerning mental health symptoms. 6. I will access [facility] Crisis if needed by calling [phone]. 7. I will consider calling [facility] Adult Mental health intake at [phone]. documented as of this encounter Visit Diagnoses [...] [facility]. 3. I will update [facility] Team at outreach. Health Maintenance Due or Overdue 12/16/2023 Patient expresses financial resource strain 12/13 Mental Health Symptoms Need Improvement 04/05/19 Assessment Noted Time PHQ-9 Depression Total Score: 18 025 2:39 PM CDT documented as of this encounter Care Teams Traffic Controller Cable Relationship Specialty [place] [address] [place], [place] [id number] PCP - General Family Practice 07/11/14 [place] [address] [place], [place] [phone] Assigned PCP 12/16/11 Christy Campuzano PA-C [address] [place] [address] 619962 Referring Physician Family Medicine 04/22/20 Hans Cannon MD [address] [place] [address] 807942 Resident Pulmonary Disease 04/22/20 Estella Hassan, [facility] [place], [place] 528[address] Pharmacist Pharmacist 05/26/20 Elaina Moreno MD [address] [place], [place] 921735 Cardiovascular & Thoracic Surgery 08/06/20 John Webb MD [address] 656855 Cardiovascular Disease 08/25/21 John Webb MD [address] 990375 Cardiovascular Disease 08/25/21 Estella Hassan, [facility] [address] [place] [address] Assigned MTM Pharmacist 12/09/21 Lindsay Carey OD [address] [facility] [place] [address] Ophthalmology 01/29/22 Richard Kam MD [address] [place] [address] 337075 Assigned Musculoskeletal Provider 08/14/22 [place] [address] 087177 Assigned Neuroscience Provider 01/01/23 12/03/24 Rosemarie Mcdowell RN Boat Engine Mechanic Diabetes Education 03/17/23 Mitra Kendall, BOAT OPERATOR Lead Dental Equipment Mechanic Primary Care - CC 12/12/23 Lizet Mann PA-C [address] [place] [address] Assigned Cancer Care Provider 01/04/24 Ravi Brownlee MD [address] [place] [address] Assigned Pulmonology Provider 01/04/24 Manuel Ahn OD 6341 [place] [address] Product Designer 01/05/24 Thalia Charles, [facility] [address] [place] [address] Pharmacist Pharmacy 01/26/24 Gaurav Valenzuela APRN MANAGER INTELLIGENCE 606 [facility] 106 [place] [address] Assigned Sleep Provider 02/04/24 Debbie Mann MD 1600 [facility] 200 [place] [address] Cardiovascular Disease 02/24/24 Hakeem Chacko MBBS 2945 [place] [address] Assigned Rheumatology Provider 04/05/24 Debbie Mann MD 1600 [facility] 200 [place] [address] Assigned Heart and Vascular Provider 05/06/24 Timothy Tejada MD 6341 [place] [phone] Ophthalmology 05/29/24 Timothy Tejada MD [address] [place] [phone] Assigned Surgical Provider 06/03/24 lEsie Roberts APRN MANAGER INTELLIGENCE 1600 [facility] 101 [place], [place] [phone] Nurse Practitioner Pain Medicine 10/16/24 documented as of this encounter
--- OUTSIDE RECORDS SUMMARY | 2024-12-06 00:39 | XMS_ITS | Encounter Summary ---
Author Organization [facility] Address [address] [place] [address] Care Team Providers Care Pharmacology Teacher Name Role Phone Va Glez MD Primary Care Provider Va Glez MD Unavailable Christy CampuzanoC Unavailable [phone] Hans Cannon MD Unavailable Estella Hassan [facility] Unavailable [phone] Josh Cordero MD, Madhuri Unavailable [phone] John Webb MD Unavailable John Webb MD Unavailable Estella Hassan [facility] Unavailable [phone] Lindsay Carey OD Unavailable [phone] Richard Kam MD Unavailable Gaby Vila DO Unavailable Rosemarie Mcdowell RN Unavailable Mitra Kendall BUSINESS PROCESS MODELER Unavailable [phone] Lizet Mann PA-C Unavailable Ravi Brownlee MD Unavailable Manuel Ahn OD Unavailable [phone] Thalia Charles [facility] Unavailable [phone] Nicolas Gaurav Bell STAFF AIR TACTICAL OFFICER MANAGER GALLERY Unavailable [phone] Debbie Mann MD Unavailable [phone] Hakeem Chacko MB Unavailable Debbie Mann MD Unavailable [phone] Timothy Tejada MD Unavailable [phone] Timothy Tejada MD Unavailable [phone] Elsie Roberts STAFF AIR TACTICAL OFFICER MANAGER GALLERY Unavailable + Cristy [facility] MD Unavailable [phone] Reason for Visit * Reason Onset Date Comments Appointment 11/07/2024 Encounter Details Date Type Department Care Team ([facility] st Contact Info) Description 11/07/2024 Telephone [facility] [address] 4th [place] [address] Richard Kam MD [address] [place] [address] Appointment Social History Tobacco Use Types Packs/Day [...] Answer Date Recorded PHQ-2 Score 6 11/01/2024 [facility] Occupat ional Health - Occupational [...] an overnight skilled nursing, 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.) Yes 11/05/2024 Are you worried [...] on file 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 Frederick Cheng * Telephone Encounter - Augustine Puri - 11/07/2024 1:03 PM CDT Other: Patient wants to see Dr Kam and discuss some issues with his hand along with gettting surgeryscheduled, wanted to be seen ISABEL since school is starting soon Could we send this information to you in [facility] or would you prefer to receive a phone call?: Patient would prefer a phone call Okay to leave a detailed message?: Yes at Cell number on file: Telephone Information: documented in this encounter Plan of Treatment Upcoming Encounters Date Type Department Care Team (Late st Contact Info) Description 12/11/2024 2:10 PM CDT Therapy Visit [facility] [address] [place] [phone] Shanta Cooper, MOIZ 12/14/2024 11:20 AM CDT Office Visit [facility] [address] [place] [address] Lizet Mann PA-C [id number] [place], [place] [address] [place] [address] 12/17/2024 2:10 PM CDT Office Visit [facility] 909 [facility] 4th [place] [phone] Richard Kam MD 500 [place] [address] 12/19/2024 8:20 AM CDT Therapy Visit [address] [place] [phone] Shanta Cooper, PT 12/24/2024 5:00 PM CDT Therapy Visit [address] [phone] Pattie Casillas, PT 12/25/2024 10:20 AM CDT Therapy Visit [address] [address] Shanta Cooper, PT 01/03/2025 1:00 PM CDT Office Visit [address] [phone] Estella Hassan, [facility] 3033 [place] [address] 01/03/2025 1:30 PM CDT Office Visit [address] [phone] Va Glez MD [address] [place] [address] [id number] 01/08/2025 1:15 PM CDT Office Visit [facility] 2945 [facility] [address] [place] [phone] Hakeem Chacko MBBS [address] [place] [address] Scheduled Procedures Name Priority Associated Diagnoses Date/Ti [...] for health insurance by looking in to [employer] and talking with a FRW. Completed 3. I will look for a new job and will access resources that the [employer] [facility] offers. . Sarted new job 4. [...] by household income. 2. I will contact [employer] [facility] to ask about medicare plans and if there are saving programs I qualify for by by calling [phone]. 3. I will see if I am eligible for unemployment after losing my job. I will call [phone] to ask for assistance with unemployment application. 4. I will apply for jobs. I will work with [employer] in finding a job ([employer]owerment.) 5. I will access [employer] and ask about financial resources (such as [...] will continue working with therapist at [facility]. 2. I will establish with Psychiatry. Planning to schedule with Ronnie. 3. I will meet with community health worker Manjula Gresham. 4. I will look in to attending an IOP program. I will discuss with my [facility] therapist and number provided for [facility] Behavioral Access - [phone] to schedule assessment fr IOP program. 5. I will go to [facility] if I have concerning mental health symptoms. 6. I will access [facility] Crisis if needed by calling [phone]. 7. I will consider calling [facility] Adult Mental health intake at [phone]. documented as of this encounter Visit Diagnoses [...] documented as of this encounter Care Teams Pharmacology Teacher Relationship Specialty [place] [address] [place] [address] PCP - General Family Practice 07/11/14 [place] [address] [place] [address] Assigned PCP 12/16/11 Christy Campuzano PA-C [address] [place] [address] [place] [id number] Referring Physician Family Medicine 04/22/20 [place] [address] [place] [address] Resident Pulmonary Disease 04/22/20 Estella Hassan, [facility] [address] [place] [address] Pharmacist Pharmacist 05/26/20 Elaina Moreno MD [address] [place] [address] Cardiovascular & Thoracic Surgery 08/06/20 John Webb MD [address] [place] [address] Cardiovascular Disease 08/25/21 John Webb MD [address] [place] [address] Cardiovascular Disease 08/25/21 Estella Hassan, [facility] [address] [place] [address] Assigned MTM Pharmacist 12/09/21 [place] [address] [place] [address] [place] [address] Ophthalmology 01/29/22 Richard Kam MD [address] [place] [address] Assigned Musculoskeletal Provider 08/14/22 [place] [address] [address] [place], [facility] 300 [place], [place] 319847 Assigned Neuroscience Provider 01/01/23 12/03/24 Rosemarie Mcdowell, RN Plate Printer Diabetes Education 03/17/23 Mitra Kendall, BUSINESS PROCESS MODELER Lead Building Insulation Installer Primary Care - CC 12/12/23 Lizet Mann PA-C [address] [place] [address] Assigned Cancer Care Provider 01/04/24 Ravi Brownlee MD [address] [place] [address] [address] [place], [place] [address] Assigned Pulmonology Provider 01/04/24 Manuel Ahn OD [address]341 [place] [address] Tail Dogger 01/05/24 Thalia Charles [facility] [address] [place], [place] [phone] Pharmacist Pharmacy 01/26/24 Gaurav Valenzuela, STAFF AIR TACTICAL OFFICER MANAGER GALLERY [address] [facility] [address] [place] [address] Assigned Sleep Provider 02/04/24 Debbie Mann MD 1600 [facility] 200 [place], [place] [phone] Cardiovascular Disease 02/24/24 Hakeem Chacko MBBS 2945 [place] [address] Assigned Rheumatology Provider 04/05/24 Debbie Mann MD 1600 [facility] 200 [place] [address] Assigned Heart and Vascular Provider 05/06/24 Timothy Tejada MD 6[address] [place] [phone] Ophthalmology 05/29/24 Timothy Tejada MD 6341 [facility] [place] [phone] Assigned Surgical Provider 06/03/24 Elsie Roberts APRN MANAGER GALLERY [address] [facility] 101 [place] [address] Nurse Practitioner Pain Medicine 10/16/24 Cristy [facility] MD [address] [place] [address] SHANKAR ROMO [id number] Assigned Pediatric Specialist Provider 11/03/24 documented as of this encounter
--- OUTSIDE RECORDS SUMMARY | 2024-12-06 00:39 | XMS_ITS | Encounter Summary ---
Author Organization [facility] Address [address] [place] [address] Care Team Providers Care Photovoltaic Technician Name Role Phone Va Glez MD Primary Care Provider Va Glez MD Unavailable Christy CampuzanoC Unavailable [phone] Hans Cannon MD Unavailable Estella Hassan [facility] Unavailable Josh Cordero MD, Madhuri Unavailable [phone] John Webb MD Unavailable John Webb MD Unavailable Estella Hassan [facility] Unavailable Lindsay Carey OD Unavailable Richard Kam MD Unavailable Gaby Vila DO Unavailable [phone] Rosemarie Mcdowell RN Unavailable [phone] Mitra Kendall NAVAL ARCHITECT SPECIALIST Unavailable [phone] Lizet Mann PA-C Unavailable Ravi Brownlee MD Unavailable Manuel Ahn OD Unavailable [phone] Thalia Charles [facility] Unavailable [phone] Nicolas Gauarv Bell QUALITY ASSURANCE SUPERVISOR BODY RELIEF MAP MODELER Unavailable [phone] Debbie Mann MD Unavailable [phone] Hakeem Chacko MB Unavailable Debbie Mann MD Unavailable [phone] Timothy Tejada MD Unavailable [phone] Timothy Tejada MD Unavailable [phone] Elsie Roberts QUALITY ASSURANCE SUPERVISOR BODY RELIEF MAP MODELER Unavailable + Cristy Morton MD Unavailable [phone] Reason for Visit * Reason Onset Date Comments Appointment 11/15/2024 Encounter Details Date Type Department Care Team ([facility] st Contact Info) Description 11/15/2024 Telephone [facility] [address] 4th [place] [address] Richard Kam MD [address] [place] [address] Appointment Social History Tobacco Use Types [...] re latives? 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 Kam. Explained to patient that the current plan is to have the nerve root block on 12-04-24 and inform us in regards to any changes in symptoms. Will wait on scheduling consult with Dr. Kam and carpal tunnel. Patient also asked if he needs a service parts driver for his injection - I informed patient that I am not sure if he does and that he should call the clinic to ask but I would recommend him to have a service parts driver due to the nature of the injection. Patient verbalized understanding and is in agreement with the plan. * Telephone Encounter - Rufina Perez - 11/15/2024 9:39 AM CDT Other: see previous TE. Talked to Angi about Dr. Kam. Frederick left a message about scheduling with Dr. Kam around 11/19. Pt deleted the msg but thought it was from today or maybe yesterday. I dont know ifthis is for an office visit or any kind of procedure. Please call the pt to schedule. Pt is not sure if the nerve block can be done the same day as the carpal tunnel surgery. Is Dr. Kam available to co nsult on this tomorrow afternoon? Pt just wants to understand the plan. Please call the pt. Could we send this information to you in [employer] or would you prefer to receive a phone call?: Patient would prefer a phone call Okay to leave a detailed message?: Yes at Cell number on file: Telephone Information: documented in this encounter Plan of Treatment Upcoming Encounters Date Type Department Care Team (Late st Contact Info) Description 12/11/2024 2:10 PM CDT Therapy Visit [address] [phone] Shanta Cooper, PT 12/14/2024 11:20 AM CDT Office Visit [facility] [address] [place] [address] Lizet Mann PA-C [id number] [place] [address] 12/17/2024 2:10 PM CDT Office Visit [facility] [address] 4th [place] [phone] Richard Kam MD [address] [place] [address] 12/19/2024 8:20 AM CDT Therapy Visit [address] [address] Shanta Cooper, PT 12/24/2024 5:00 PM CDT Therapy Visit [address] [address] Pattie Casillas, PT 12/25/2024 10:20 AM CDT Therapy Visit [address] [address] Shanta Cooper, PT 01/03/2025 1:00 PM CDT Office Visit [address] [phone] Tino Hassaneber Campos, [facility] [address] [place] [address] 01/03/2025 1:30 PM CDT Office Visit [facility] [address] [place] [address] [place] [address] [place] [address] 01/08/2025 1:15 PM CDT Office Visit [facility] [address] [facility] 200 [place] [phone] Hakeem Chacko MBBS [address] [place] [address] Scheduled Procedures Name Priority Associated Diagnoses Date/Ti [...] 100%(10/29/19 10:17 AM CDT) No Mitra Kendall NAVAL ARCHITECT SPECIALIST Note: Updated on 05/25/22 Barriers: Currently not [...] by household income. 2. I will contact [employer] to ask about medicare plans and if there are saving programs I qualify for by by calling [phone]. 3. I will see if I am eligible for unemployment after losing my job. I will call [phone] to ask for assistance with unemployment application. 4. I will apply for jobs. I will work with [employer] in finding a job ([employer]ower[employer].) 5. I will access [facility] [employer] and ask about financial resources (such as getting gas card.) Improve management of mental health symptoms and establish with mental health/psychosocia l supports Care Plan Mental Health Symptoms Need Improvement 70%( 10:47 AM CDT) Mitra Borja, NAVAL ARCHITECT SPECIALIST Note: Updated on 08/30/24 Barriers: I struggle with having anxiety.My children won;t talk with me due to my mental health concerns Strengths: I am accessing support that is available to me. Patient expressed understanding of goal: Yes Action steps to achieve this goal: 1. I will continue working with therapist at [facility]. 2. I will establish with Psychiatry. Planning to schedule with Ronnie. 3. I will meet with community idea worker Manjula Gresham. 4. I will look in to attending an IOP program. I will discuss with my [facility] therapist and number provided for [facility] Behavioral Access - [phone] to schedule assessment fr IOP program. 5. I will go to [facility] if I have concerning mental health symptoms. 6. I will access [facility] Crisis if needed by calling [phone]. 7. I will consider calling [facility] Adult Mental health intake at [phone]. documented as of this encounter Visit Diagnoses [...] [facility]. 3. I will update [facility] Team at outreach. Health Maintenance Due or Overdue 12/16/2023 Patient expresses financial resource strain 12/13 Mental Health Symptoms Need Improvement 01/23/20 25 Assessment Noted Time PHQ-9 Depression Total Score: 18 11/01/ 025 2:39 PM CDT documented as of this encounter Care Teams Photovoltaic Technician Relationship Specialty [place] [address] [place] [address] PCP - General Family Practice 07/11/14 [place] [address] [place] [address] Assigned PCP 12/16/11 Christy Campuzano PA-C [address] [place] [address] [id number] Referring Physician Family Medicine 04/22/20 Hans Cannon MD [address] [place] [address] Resident Pulmonary Disease 04/22/20 Estella Hassan, [facility] [address] [place], [place] 815426 Pharmacist Pharmacist 05/26/20 Elaina Moreno MD [address] [place] [address] [id number] Cardiovascular & Thoracic Surgery 08/06/20 John Webb MD [address] 029245 Cardiovascular Disease 08/25/21 John Webb MD [address] 507125 Cardiovascular Disease 08/25/21 Estella Hassan, [facility] [address] [place] [address] Assigned MTM Pharmacist 12/09/21 Lindsay Carey OD [address] [facility] [place] [address] Ophthalmology 01/29/22 Richard Kam MD [address] [place], [place] 116065 Assigned Musculoskeletal Provider 08/14/22 [place] [address] [place], [address] 740687 Assigned Neuroscience Provider 01/01/23 12/03/24 Rosemarie Mcdowell, RN Lace Roller Operator Diabetes Education 03/17/23 Mitra Kendall, NAVAL ARCHITECT SPECIALIST Lead Balance Assembler Primary Care - CC 12/12/23 Lizet Mann PA-C [address] [place] [address] 210269 Assigned Cancer Care Provider 01/04/24 Ravi Brownlee MD [address] [place] [address] 891665 Assigned Pulmonology Provider 01/04/24 Manuel Ahn OD [address] [facility] [place] [id number] Internal Controls Consultant 01/05/24 Thalia Charles [facility] [address] [place], [place] [phone] Pharmacist Pharmacy 01/26/24 Gaurav Valenzuela APRN RELIEF MAP MODELER [address] [facility] [place] [address] [place] [address] Assigned Sleep Provider 02/04/24 Debbie Mann MD 1600 [facility] 200 [place], [place] [phone] Cardiovascular Disease 02/24/24 Hakeem Chacko MBBS [address] [place] [address] Assigned Rheumatology Provider 04/05/24 Debbie Mann MD [address] [facility] 200 [place], [place] [phone] Assigned Heart and Vascular Provider 05/06/24 Timothy Tejada MD 6341 [place] [address] Ophthalmology 05/29/24 Timothy Tejada MD [address] [place] [address] Assigned Surgical Provider 06/03/24 Elsie Roberts APRN RELIEF MAP MODELER 1600 [facility] 101 [place] [address] Nurse Practitioner Pain Medicine 10/16/24 Cristy Morton MD [address] [place] [address] Assigned Pediatric Specialist Provider 11/03/24 documented as of this encounter
--- OUTSIDE RECORDS SUMMARY | 2024-12-06 00:39 | XMS_ITS | Encounter Summary ---
Author Organization [facility] Address [address] [place] [address] Care Team Providers Care Rounder And Backer Name Role Phone Va Glez MD Primary Care Provider [phone] Va Glez MD Unavailable Christy CampuzanoC Unavailable [phone] Hans Cannon MD Unavailable Estella Hassan [facility] Unavailable [phone] Josh Cordero MD, Madhuri Unavailable [phone] John Webb MD Unavailable John Webb MD Unavailable [phone] Estella Hassan [facility] Unavailable [phone] Lindsay Carey OD Unavailable Richard Kam MD Unavailable Gaby Vila DO Unavailable Rosemarie Mcdowell RN Unavailable Mitra Kendall GLASS DESIGNER Unavailable [phone] Lizet Mann PA-C Unavailable Ravi Brownlee MD Unavailable Manuel Ahn OD Unavailable Thalia Charles [facility] Unavailable [phone] Gaurav Valenzuela Ray DUST MOP MAKER CARPET INSTALLER HELPER Unavailable [phone] Debbie Mann MD Unavailable [phone] Hakeem Chacko MB Unavailable Debbie Mann MD Unavailable [phone] Timothy Tejada MD Unavailable [phone] Timothy Tejada MD Unavailable [phone] Elsie Roberts DUST MOP MAKER CARPET INSTALLER HELPER Unavailable + Cristy Morton MD Unavailable [phone] Reason for Visit * Reason Comments Medication Refill Encounter Details Date Type Department Care Team (Late st Contact Info) Description 11/11/[address] [address] [place] [id number] [place] [address] [phone] Medication Refill Social History Tobacco Use Types [...] re latives? 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 Antonieta Ruby RN, BSN [facility] * Telephone Encounter - Va Glez MD - 11/13/2024 1:32 PM CDT Is the patient using it? * Telephone Encounter - Antonieta Ruby RN - 11/13/2024 1:02 PM CDT Fluticasone last prescribed by Dr Glez on 03/28/2024. Antonieta Ruby RN, BSMichelle [facility] * Telephone Encounter - Luis Angel Durbin RN - 11/13/2024 10:43 AM CDT Clinic RN: Please investigate patient's chart or contact patient if the information cannot be foundbecause the medication is listed as historical or discontinued. Confirm patient is taking this medication. Document findings and route refill encounter to provider for approval or denial. Luis Angel Durbin RN on 11/13/2024 at 10:43 AM documented in this encounter Plan of Treatment Upcoming Encounters Date Type Department Care Team (Late st Contact Info) Description 12/11/2024 2:10 PM CDT Therapy Visit [address] [phone] Shanta Cooper, PT 12/14/2024 11:20 AM CDT Office Visit [facility] [address] [place] [address] Lizet Mann PA-C [address] [place] [address] 12/17/2024 2:10 PM CDT Office Visit [facility] 9[address] [facility] 4th [place] [address] Richard Kam MD [address] [place] [address] 12/19/2024 8:20 AM CDT Therapy Visit [address] [phone] Shanta Cooper, PT 12/24/2024 5:00 PM CDT Therapy Visit [address] [phone] Pattie Casillas, PT 12/25/2024 10:20 AM CDT Therapy Visit [address] [phone] Shanta Cooper, PT 01/03/2025 1:00 PM CDT Office Visit [facility] [address] [place] [phone] Estella Hassan, [facility] 3033 [place] [address] 01/03/2025 1:30 PM CDT Office Visit [facility] [address] [place] [address] [place] [address] [place] [address] 01/08/2025 1:15 PM CDT Office Visit [facility] 29[address] [facility] 200 [place] [address] Hakeem Chacko MBBS [address]45 [place] [address] Scheduled Procedures Name Priority Associated Diagnoses Date/Ti [...] for health insurance by looking in to [employer] and talking with a FRW. Completed 3. I will look for a new job and will access resources that the [employer] center offers. . [employer] new job 4. [...] by household income. 2. I will contact [employer] [facility] to ask about medicare plans and if there are saving programs I qualify for by by calling [phone]. 3. I will see if I am eligible for unemployment after losing my job. I will call [phone] to ask for assistance with unemployment application. 4. I will apply for jobs. I will work with [employer] in finding a job ([employer].) 5. I will access [employer] and ask about financial resources (such [...] Ronnie. 3. I will meet with community rodding anode worker Manjula Gresham. 4. I will look in to attending an IOP program. I will discuss with my [facility] therapist and number provided for [facility] Behavioral Access - [phone] to schedule assessment fr IOP program. 5. I will go to [facility] if I have concerning mental health symptoms. 6. I will access [facility] if needed by calling [phone]. 7. I will consider calling [facility] Adult Mental health intake at [phone]. documented as of this encounter Visit Diagnoses Diagnosis Other seasonal allergic rhinitis documented in this encounter Additional Health Concerns [...] accurate information and submit it to the [facility]. 3. I will update [facility] Team at outreach. Health Maintenance Due or Overdue 12/16/2023 Patient expresses financial resource strain 12/13 Mental Health Symptoms Need Improvement 04/05/19 25 Assessment Noted Time PHQ-9 Depression Total Score: 18 025 2:39 PM CDT documented as of this encounter Care Teams Rounder And Backer Relationship Specialty [place] [address] [place], [place] [phone] PCP - General Family Practice 07/11/14 [place] [address] [place], [place] [phone] Assigned PCP 12/16/11 Christy Campuzano PA-C [address] [place] [address] 955502 Referring Physician Family Medicine 04/22/20 Hans Cannon MD [address] [place] [address] 356292 Resident Pulmonary Disease 04/22/20 Estella Hassan, [facility] [place], [place] [address] Pharmacist Pharmacist 05/26/20 Elaina Moreno MD 909 [place] [address] Cardiovascular & Thoracic Surgery 08/06/20 John Webb MD [address] [address] Cardiovascular Disease 08/25/21 John Webb MD [address] [address] Cardiovascular Disease 08/25/21 Estella Hassan, [facility] [address] [place] [address] Assigned MTM Pharmacist 12/09/21 Lindsay Carey OD [address] [facility] [place] [address] Ophthalmology 01/29/22 Richard Kam MD [address] [place] [address] 832015 Assigned Musculoskeletal Provider 08/14/22 [place] [address] [place] [address] 898467 Assigned Neuroscience Provider 01/01/23 12/03/24 Rosemarie Mcdowell RN Anaesthetic Technician Diabetes Education 03/17/23 Mitra Kendall, GLASS DESIGNER Lead Weatherization Director Primary Care - CC 12/12/23 Lizet Mann PA-C [address] [place] [address] 061319 Assigned Cancer Care Provider 01/04/24 Ravi Brownlee MD [address] [place] [address] 307955 Assigned Pulmonology Provider 01/04/24 Manuel Ahn OD [address] [place], [place] 611872 Greenhouse Technician 01/05/24 Thalia Charles, [facility] [address] [place] [address] Pharmacist Pharmacy 01/26/24 Gaurav Valenzuela APRN CARPET INSTALLER HELPER 606 [facility] 106 [place] [address] Assigned Sleep Provider 02/04/24 Debbie Mann MD 1600 [facility] 200 [place], [place] [phone] Cardiovascular Disease 02/24/24 Hakeem Chacko MBBS [address] [place], [place] [phone] Assigned Rheumatology Provider 04/05/24 Debbie Mann MD 1600 [facility] 200 [place], [place] [phone] Assigned Heart and Vascular Provider 05/06/24 Timothy Tejada MD 6341 [place] [phone] Ophthalmology 05/29/24 Timothy Tejada MD 6341 [place] [address] Assigned Surgical Provider 06/03/24 Elsie Roberts APRN CARPET INSTALLER HELPER [address] [facility] 101 [place], [place] [phone] Nurse Practitioner Pain Medicine 10/16/24 Cristy Morton MD [address] [place] [address] [place] [phone] Assigned Pediatric Specialist Provider 11/03/24 documented as of this encounter
--- OUTSIDE RECORDS SUMMARY | 2024-12-06 00:39 | XMS_ITS | Encounter Summary ---
Author Organization [facility] Address [address] [place] [address] Care Team Providers Care Plaster Patternmaker Name Role Phone Va Glez MD Primary Care Provider Va Glez MD Unavailable Christy CampuzanoC Unavailable [phone] Hans Cannon MD Unavailable Estella Hassan [facility] Unavailable Josh Cordero MD, Madhuri Unavailable [phone] John Webb MD Unavailable John Webb MD Unavailable Estella Hassan [facility] Unavailable [phone] Lindsay Carey OD Unavailable [phone] Richard Kam MD Unavailable Gaby Vila DO Unavailable [phone] Rosemarie Mcdowell RN Unavailable Mitra Kendall DOUGH MIXER Unavailable [phone] Lizet Mann PA-C Unavailable Ravi Brownlee MD Unavailable Manuel Ahn OD Unavailable Thalia Charles [facility] Unavailable [phone] Gaurav Valenzuela FIELD SUPERVISOR ACCOUNTING ASSOCIATE Unavailable [phone] Debbie Mann MD Unavailable [phone] Hakeem Chacko MB Unavailable Debbie Mann MD Unavailable [phone] Timothy Tejada MD Unavailable [phone] Timothy Tejada MD Unavailable [phone] Elsie Roberts FIELD SUPERVISOR ACCOUNTING ASSOCIATE Unavailable + Cristy Morton MD Unavailable [phone] Reason for Visit * Reason Onset Date Comments Patient Request 11/09/2024 Zio Patch Encounter Details Date Type Department Care Team (Late st Contact Info) Description 11/09/[address] [address] [place] [id number] [place] [address] Patient Request (Zio Patch) Social History Tobacco Use Types Packs/Day Years [...] Answer Date Recorded PHQ-2 Score 6 11/01/2024 [facility]at ional [...] on file 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 Justine Jolly/SHERWIN * Telephone Encounter - Emilee Jolly - 11/14/2024 9:58 AM CDT Contacts Contact Date/Time Type Contact Phone/Fax 11/09/2024 02:35 PM CDT Phone (Incoming) Sumeet Devi (Self) [phone] (M) Attempted to reach patient to: Schedule an appointment When patient returns call, please take this action: Assist with scheduling Reason for the visit: MA visit to place Zio Patch-pt had Er follow up already 11/07/2024 with Kamala When to schedule: Next available Additional comments/info: Called pt to schedule MA visit to place Zio Patch- voice mail full If unable to schedule: Add a note to the telephone encounter noting the barrier and route back to primary care team pool * Telephone Encounter - Janette Pires - 11/13/2024 10:26 AM CDT Tried calling number on file, but the mail box is full. Sent [employer] message. SHERWIN Collins * Telephone Encounter - Judie Kenyon RN - 11/13/2024 10:21 AM CDT Please call pt to schedule hospital follow up appt and let him know we can place zio patch at that time. Remind him to bring with to that appt. Judie Campos RN [facility] * Telephone Encounter - Va Glez MD - 11/10/2024 9:29 AM CDT Yes, pt needs a visit for hospital follow up and we can put his zio patch on (he needs to bring it with him). Va Glez MD [facility]. [phone] * Telephone Encounter - Ana Nolan RN - 11/09/2024 2:[address] Glez Please see below message. See 11/04 Hospital admission note, ordered then. But there needs to be a clinic order to place here as patient is requesting. Thank you. Ana Nolan SHOE IRONER Clinic Nurse [facility] * Telephone Encounter - Rosemarie Mcgarry - 11/09/2024 2:35 PM CDT General Call Reason for Call: Patient received a Zio Patch in the mail. It was ordered through [facility] on 11/05/2024- What are your questions or concerns: Patient needs assistance putting on the Zio Patch. No orders on file to place the Zio Patch Needs orders to place Zio Patch. Date of last appointment with provider: 11/07/2024 Could we send this information to you in [employer] or would you prefer to receive a phone call?: Patient would prefer a phone call Okay to leave a detailed message?: Yes at Home number on file [phone] (home) documented in this encounter Plan of Treatment Upcoming Encounters Date Type Department Care Team (Late st Contact Info) Description 12/11/2024 2:10 PM CDT Therapy Visit [address] [place] [address] Shanta Cooper, PT 12/14/2024 11:20 AM CDT Office Visit [facility] [address] [place] [address] Lizet Mann PA-C [address] [facility] [place] [address] 12/17/2024 2:10 PM CDT Office Visit [facility] Orthopedic [address] 4th [place] [phone] Richard Kam MD [address] [place] [address] 12/19/2024 8:20 AM CDT Therapy Visit [address] [address] Shanta Cooper, PT 12/24/2024 5:00 PM CDT Therapy Visit [address] [address] Pattie Casillas, PT 12/25/2024 10:20 AM CDT Therapy Visit [address] [phone] Shnata Cooper, PT 01/03/2025 1:00 PM CDT Office Visit [address] [phone] Mo Estella Campos, [facility] [address] [facility] [place] [address] 01/03/2025 1:30 PM CDT Office Visit [facility] [address] [place] [phone] [place] [address] [place], [place] [phone] 01/08/2025 1:15 PM CDT Office Visit [facility] [address] [facility] 200 [place] [address] Hakeem Chacko MBBS 2945 [place] [address] Scheduled Procedures Name Priority Associated Diagnoses Date/Ti [...] preventive visit. 4. Apply for [facility] as I currently am without insurance.Going to wait for Medicare starting October 12 Create an action plan to increase financial stability Care Plan Patient expresses financial resource strain 100%(10/29/19 10:17 AM CDT) No Mitra Kendall DOUGH MIXER Note: Updated on 05/25/22 Barriers: Currently not [...] job and will access resources that the [employer] center offers. . Sarted new job 4. [...] by household income. 2. I will contact [employer] to ask about medicare plans and if there are saving programs I qualify for by by calling [phone]. 3. I will see if I am eligible for unemployment after losing my job. I will call [phone] to ask for assistance with unemployment application. 4. I will apply for jobs. I will work with [employer] in finding a job ([employer]owerment.) 5. I will access [employer] and ask about financial resources (such as getting gas card.) Improve management of mental health symptoms and establish with mental health/psychosocia l supports Care Plan Mental Health Symptoms Need Improvement 70%( 5 10:47 AM CDT) No Mitra Kendall, DOUGH MIXER Note: Updated on 08/30/24 Barriers: I struggle [...] Ronnie. 3. I will meet with community delivery sales worker Manjula Gresham. 4. I will look in to attending an IOP program. I will discuss with my [place] mental Health therapist and number provided for [facility] Behavior[facility] Access - [phone] to schedule assessment fr IOP program. 5. I will go to [facility] if I have concerning mental health symptoms. 6. I will access [facility] Crisis if needed by calling [phone]. 7. I will consider calling [facility] Adult Mental health intake at [phone]. documented as of this encounter Visit Diagnoses [...] the [facility]. 3. I will update [facility] Team at outreach. Health Maintenance Due or Overdue 12/16/2023 Patient expresses financial resource strain 12/13 Mental Health Symptoms Need Improvement 04/05/19 25 Assessment Noted Time PHQ-9 Depression Total Score: 18 025 2:39 PM CDT documented as of this encounter Care Teams Plaster Patternmaker Relationship Specialty [place] [address] [place] [address] PCP - General Family Practice 07/11/14 [place] [address] [place] [address] Assigned PCP 12/16/11 Christy Campuzano PA-C [address] [place] [address] 253832 Referring Physician Family Medicine 04/22/20 Hans Cannon MD [address] [place] [address] Resident Pulmonary Disease 04/22/20 Estella Hassan, [facility] [address] [place], [place] [address]406 Pharmacist Pharmacist 05/26/20 Elaina Moreno MD [address] [place] [address] 828495 Cardiovascular & Thoracic Surgery 08/06/20 John Webb MD [address] 790815 Cardiovascular Disease 08/25/21 John Webb MD [address] 584575 Cardiovascular Disease 08/25/21 Estella Hassan, [facility] [address] [place] [address] Assigned MTM Pharmacist 12/09/21 Lindsay Carey OD [address] [facility] [place] [address] Ophthalmology 01/29/22 Richard Kam MD 500 [place], [place] 533285 Assigned Musculoskeletal Provider 08/14/22 [place] [address] 207607 Assigned Neuroscience Provider 01/01/23 12/03/24 Rosemarie Mcdowell, RN Records Technician Diabetes Education 03/17/23 Mitra Kendall, DOUGH MIXER Lead Dental Hygiene Administrative Assistant Primary Care - CC 12/12/23 Lizet Mann PA-C [address] [place], [place] [address] [address] Assigned Cancer Care Provider 01/04/24 Ravi Brownlee MD [address] [place] [address] 310295 Assigned Pulmonology Provider 01/04/24 Manuel Ahn OD [address] [facility] [place] 546672 Bill Adjuster 01/05/24 Thalia Charles [facility] [address] [place], [place] [phone] Pharmacist Pharmacy 01/26/24 Gaurav Valenzuela APRN ACCOUNTING ASSOCIATE [address] [facility] [place] 106 [place], [place] 547584 Assigned Sleep Provider 02/04/24 Debbie Mann MD 1600 [facility] 200 [place], [place] [phone] Cardiovascular Disease 02/24/24 Hakeem Chacko MBBS [address] [place], [place] [address] Assigned Rheumatology Provider 04/05/24 Debbie Mann MD 1600 [facility] 200 [place], [place] [address] Assigned Heart and Vascular Provider 05/06/24 Timothy Tejada MD 6341 [place] [phone] Ophthalmology 05/29/24 Timothy Tejada MD [address] [place] [phone] Assigned Surgical Provider 06/03/24 Elsie Roberts APRN ACCOUNTING ASSOCIATE 1600 [facility] 101 [place], [place] [phone] Nurse Practitioner Pain Medicine 10/16/24 Cristy Morton MD [address] [place] [address] Assigned Pediatric Specialist Provider 11/03/24 documented as of this encounter
--- OUTSIDE RECORDS SUMMARY | 2024-12-06 00:39 | XMS_ITS | Encounter Summary ---
Author Organization [facility] Address [address] [place] [address] Care Team Providers Care Director Inpatient Headache Program Name Role Phone Va Glez MD Primary Care Provider Va Glez MD Unavailable Christy Campuzano PAUniqueC Unavailable [phone] Hans Cannon MD Unavailable Estella Hassan [facility] Unavailable [phone] Josh Cordero MD, Madhuri Unavailable [phone] John Webb MD Unavailable John Webb MD Unavailable [phone] Estella Hassan [facility] Unavailable Lindsay Carey OD Unavailable Richard Kam MD Unavailable Gaby Vila DO Unavailable [phone] Rosemarie Mcdowell RN Unavailable Mitra Kendall RING STAMPER Unavailable [phone] Lizet Mann PA-C Unavailable Ravi Brownlee MD Unavailable Nav Hughes MD Unavailable [phone] Dayday Ahnen Kunal OD Unavailable [phone] Thalia Charles [facility] Unavailable [phone] Gaurav Valenzuela NUTRITION AIDES TEACHER CARRIAGE RIDER Unavailable [phone] Manuel Ahn Kunal OD Unavailable [phone] Debbie Mann MD Unavailable [phone] Hakeem Chacko [facility] Unavailable Debbie Mann MD Unavailable [phone] Timothy Tejada MD Unavailable [phone] Timothy Tejada MD Unavailable [phone] Elsie Roberts NUTRITION AIDES TEACHER CARRIAGE RIDER Unavailable + Cristy Morton MD Unavailable [phone] Georgie Anguiano PA-C Unavailable [phone] Reason for Visit * Reason Onset Date Comments Call To Schedule Appointment 04/25/2024 Toro arnold questions Encounter Details Date Type Department Care Team (Late st Contact Info) Description 04/25/[address] [facility] Neurology Clinic [address] [address] None Call To Schedule Appointment (Scheduling questions) Social History Tobacco Use Types Packs/Day Years [...] re latives? 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 Diagnosis not in protocol. Please review and reach out to patient to schedule at [phone]. Action Taken: Message routed to: [facility] Neurology Travel Screening: Not Applicable CTOR OF INTELLIGENCE documented in this encounter Plan of Treatment Upcoming Encounters Date Type Department Care Team (Late st Contact Info) Description 12/11/2024 2:10 PM CDT Therapy Visit [facility] Rehabilitation Services [address] [phone] Shanta Cooper, MOIZ 12/14/2024 11:20 AM CDT Office Visit [facility] [address] [place] [address] [place] [phone] Lizet Mann PA-C [address] [place] [address] 12/17/2024 2:10 PM CDT Office Visit [facility] Orthopedic [address] 4th [place] [address] Richard Kam MD [address] [place] [address] 12/19/2024 8:20 AM CDT Therapy Visit [address] [address] Shanta Cooper, PT 12/24/2024 5:00 PM CDT Therapy Visit [address] [phone] Pattie Casillas, PT 12/25/2024 10:20 AM CDT Therapy Visit [address] [phone] Shanta Cooper, PT 01/03/2025 1:00 PM CDT Office Visit [address] [address] Estella Hassan, [facility] 3033 [place] [address] 01/03/2025 1:30 PM CDT Office Visit [address] [phone] Va Glez MD [address] [place] [address] 01/08/2025 1:15 PM CDT Office Visit [facility] [address] [place] [address] 200 [place] [address] Hakeem Chacko MBBS [address] [place] [address] Scheduled Procedures Name Priority Associated Diagnoses Date/Ti [...] for health insurance by looking in to [employer] and talking with a FRW. Completed 3. I will look for a new job and will access resources that the [employer] center offers. . Sarted new job [...] by household income. 2. I will contact [employer] [facility] to ask about medicare plans and if there are saving programs I qualify for by by calling [phone]. 3. I will see if I am eligible for unemployment after losing my job. I will call [phone] to ask for assistance with unemployment application. 4. I will apply for jobs. I will work with [employer] in finding a job (Empowerment.) 5. I will access [employer] and ask about financial resources (such as [...] Ronnie. 3. I will meet with community general i farmworker Manjula Gresham. 4. I will look in to attending an IOP program. I will discuss with my [place] mental Health therapist and number provided for [facility] Behavioral Access - [phone] to schedule assessment fr IOP program. 5. I will go to [facility] if I have concerning mental health symptoms. 6. I will access [facility] Crisis if needed by calling [phone]. 7. I will consider calling [facility] Adult Mental health intake at [phone]. documented as of this encounter Visit Diagnoses [...] information and submit it to the [facility]. 3. I will update [facility] [...] Total Score: 4 03/28/19 25 2:25 PM DIRECTOR OF INTELLIGENCE documented as of this encounter Care Teams Director Inpatient Headache Program Relationship Specialty [place] [address] [place] [address] PCP - General Family Practice 07/11/14 [place] [address] [facility] [place] [address] Assigned PCP 12/16/11 Christy Campuzano PA-C [address] [place] [address] 159372 Referring Physician Family Medicine 04/22/20 Hans Cannon MD [address] [place] [address] Resident Pulmonary Disease 04/22/20 Estella Hassan, [facility] [address] [place] [address] 574416 Pharmacist Pharmacist 05/26/20 Elaina Moreno MD [address] [place] [address]995 Cardiovascular & Thoracic Surgery 08/06/20 John Webb MD [address] 606225 Cardiovascular Disease 08/25/21 John Webb MD [address] 533295 Cardiovascular Disease 08/25/21 Estella Hassan, [facility] [address] [place] [address] 607156 Assigned MTM Pharmacist 12/09/21 Lindsay Carey OD [address] [place] [address] [place] [address] Ophthalmology 01/29/22 Richard Kam MD 500 [place], [place] 021525 Assigned Musculoskeletal Provider 08/14/22 [place] [address] [address] PENA, [address] [address] Assigned Neuroscience Provider 01/01/23 12/03/24 Rosemarie Mcdowell, RN Wagon Driller Diabetes Education 03/17/23 Mitra Kendall, RING STAMPER Lead Plumber Primary Care - CC 12/12/23 Lizet Mann PA-C [address] [place] [address] Assigned Cancer Care Provider 01/04/24 Ravi Brownlee MD [address] [place] [address] 276 [place], [place] 294915 Assigned Pulmonology Provider 01/04/24 Nav Hughes MD [address] [place] [address] [place] 633285 Assigned Heart and Vascular Provider 01/04/24 05/05/24 Manuel Ahn OD [address] [facility] [place] [id number] Basket Turner 01/05/24 Thalia Charles, [facility] [address] [place], [place] [phone] Pharmacist Pharmacy 01/26/24 Gaurav Valenzuela APRN CARRIAGE RIDER 60 [facility] 106 [place] [address] Assigned Sleep Provider 02/04/24 Manuel Ahn OD 6341 [place], [place] 132032 Assigned Surgical Provider 02/04/24 06/02/24 Debbie Mann MD 1600 [facility] 200 [place], [place] [address] Cardiovascular Disease 02/24/24 Hakeem Chacko MBBS 2945 [place] [address] Assigned Rheumatology Provider 04/05/24 Debbie Mann MD 1600 [facility] 200 [place], [place] [address] Assigned Heart and Vascular Provider 05/06/24 Timothy Tejada MD 6341 [place] [phone] Ophthalmology 05/29/24 Timothy Tejada MD 6341 [place] [address] Assigned Surgical Provider 06/03/24 Elsie Roberts APRN CARRIAGE RIDER 1600 [facility] 101 [place] [address] Nurse Practitioner Pain Medicine 10/16/24 Cristy Morton MD [address] [place] [address] Assigned Pediatric Specialist Provider 11/03/24 Georgie Anguiano PA-C [address] [address] Assigned Neuroscience Provider 12/04/24 documented as of this encounter
--- OUTSIDE RECORDS SUMMARY | 2024-12-06 00:39 | XMS_ITS | Encounter Summary ---
Author Organization [facility] Address [address] [place] [address] Care Team Providers Care Software Sales Consultant Name Role Phone Va Glez MD Primary Care Provider [phone] Va Glez MD Unavailable Christy CampuzanoC Unavailable [phone] Hans Cannon MD Unavailable [phone] Estella Hassan [facility] Unavailable Josh Cordero MD, Madhuri Unavailable [phone] John Webb MD Unavailable John Webb MD Unavailable Estella Hassan [facility] Unavailable [phone] Lindsay Carey OD Unavailable Richard Kam MD Unavailable Gaby Vila DO Unavailable Rosemarie Mcdowell RN Unavailable [phone] Mitra Kendall ELECTRICAL TRYOUT PERSON Unavailable [phone] Lizet Mann PA-C Unavailable Ravi Brownlee MD Unavailable Manuel Ahn OD Unavailable Thalia Charles [facility] Unavailable [phone] Gaurav Valenzuela MATERIAL YARD CLERK SENIOR GRANTS OFFICER Unavailable [phone] Debbie Mann MD Unavailable [phone] Hakeem Chacko MB Unavailable Debbie Mann MD Unavailable [phone] Timothy Tejada MD Unavailable [phone] Timothy Tejada MD Unavailable [phone] Elsie Roberts MATERIAL YARD CLERK SENIOR GRANTS OFFICER Unavailable + Cristy Morton MD Unavailable [phone] Encounter Details Date Type Department Care Team (Late st Contact Info) Description 11/13/2024 MyC Medical Advice [address] [address] Janette Pires Social History Tobacco Use Types Packs/Day Years [...] re latives? 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 Justine Jolly/SHERWIN documented in this encounter Plan of Treatment Upcoming Encounters Date Type Department Care Team (Late st Contact Info) Description 12/11/2024 2:10 PM CDT Therapy Visit [address] [phone] Shanta Cooper, PT 12/14/2024 11:20 AM CDT Office Visit [address] [address] Lizet Mann PA-C [address] [place] [address] 12/17/2024 2:10 PM CDT Office Visit [facility] [address] [place] [phone] Richard Kam MD [address] [place] [address] 12/19/2024 8:20 AM CDT Therapy Visit [address] [phone] Shanta Cooper, PT 12/24/2024 5:00 PM CDT Therapy Visit [address] [phone] Vinny Mollymimi Dumas, PT 12/25/2024 10:20 AM CDT Therapy Visit [facility] [address] [place] [phone] Shanta Cooper, PT 01/03/2025 1:00 PM CDT Office Visit [facility] [address] [place] [phone] Estella Hassan, [facility] [address] [place] [address] 01/03/2025 1:30 PM CDT Office Visit [facility] [address] [place] [phone] [place] [address] [place], [place] [phone] 01/08/2025 1:15 PM CDT Office Visit [facility] 2945 [facility] 200 [place] [phone] Hakeem Chacko MBBS [facility]5 [place] [address] Scheduled Procedures Name Priority Associated Diagnoses Date/Ti me INJECTION, EPIDURAL, TRANSFO RAMINAL APPROACH Cervical radiculitis RELEASE, CARPAL TUNNEL, ENDOSCOPIC Right carpal tunnel syndrome documented as of this encounter Goals Goal Patient Goal Type Associated Problems Recent Progress Patient-Stated? Author Health Maintenance Care Plan HP GENERAL PROBLEM 100%(10/29/19 10:17 AM CDT) No Mitra Kendall, ELECTRICAL TRYOUT PERSON Note: Update on 05/25/22 Barriers: Currently [...] for health insurance by looking in to [employer] and talking with a FRW. Completed 3. I will look for a new job and will access resources that the [employer] offers. . Sarted new job 4. Continue [...] 2. I will contact [facility] to ask about medicare plans and if there are saving programs I qualify for by by calling [phone]. 3. I will see if I am eligible for unemployment after losing my job. I will call [phone] to ask for assistance with unemployment application. 4. I will apply for jobs. I will work with [employer] in finding a job ([employer]ower[employer].) 5. I will access [employer] and ask about financial resources (such as [...] I will continue working with therapist at [facility]. 2. I will establish with Psychiatry. Planning to schedule with Ronnie. 3. I will meet with community tail board worker Manjula Gresham. 4. I will look in to attending an IOP program. I will discuss with my [facility] therapist and number provided for [facility] Behavioral Access - [phone] to schedule assessment fr IOP program. 5. I will go to [facility] if I have concerning mental health symptoms. 6. I will access [facility] Crisis if needed by calling [phone]. 7. I will consider calling [facility] Adult Mental health intake at [phone]. documented as of this encounter Visit Diagnoses [...] as of this encounter Care Teams Software Sales Consultant Relationship Specialty [place] [address] [place] [address] PCP - General Family Practice 07/11/14 [place] [address] [place] [address] Assigned PCP 12/16/11 Christy Campuzano PA-C [address] [place] [address] 615092 Referring Physician Family Medicine 04/22/20 Hans Cannon MD [address] [place] [address] 882172 Resident Pulmonary Disease 04/22/20 Estella Hassan, [facility] [address] [place], [place] [address] Pharmacist Pharmacist 05/26/20 Elaina Moreno MD [address] [place] [address] Cardiovascular & Thoracic Surgery 08/06/20 John Webb MD [address] [id number] Cardiovascular Disease 08/25/21 John Webb MD [address] [address] Cardiovascular Disease 08/25/21 [facility] [address] [place] [address] Assigned MTM Pharmacist 12/09/21 Lindsay Carey OD [address] [facility] [place] [address] Ophthalmology 01/29/22 Richard Kam MD 500 [place], [place] [address] Assigned Musculoskeletal Provider 08/14/22 [place] [address] [place], [address] [address] Assigned Neuroscience Provider 01/01/23 12/03/24 Rosemarie Mcdowell, RN Piece Cutter Diabetes Education 03/17/23 Mitra Kendall, ELECTRICAL TRYOUT PERSON Lead Field Recruiter Primary Care - CC 12/12/23 Lizet Mann PA-C [address] [place] [address] Assigned Cancer Care Provider 01/04/24 Ravi Brownlee MD 420 [facility] 276 [place] [address] Assigned Pulmonology Provider 01/04/24 Manuel Ahn OD 6341 [place] [address] Exploration Geologist 01/05/24 Thalia Charles [facility] [address] [place], [place] [phone] Pharmacist Pharmacy 01/26/24 Gaurav Valenzuela APRN CNP [address] [facility] 106 [place], [place] 49[address] Assigned Sleep Provider 02/04/24 Debbie Mann MD 1600 [facility] 200 [place], [place] [phone] Cardiovascular Disease 02/24/24 Hakeem Chacko MBBS [address] [place] [address] Assigned Rheumatology Provider 04/05/24 Debbie Mann MD 1600 [facility] 200 [place] [address] Assigned Heart and Vascular Provider 05/06/24 Timothy Tejada MD 6341 [place] [phone] Ophthalmology 05/29/24 Timothy Tejada MD 6341 [facility] [place] [address] Assigned Surgical Provider 06/03/24 Elsie Roberts APRN [facility] [address] [facility] 101 [place] [address] Nurse Practitioner Pain Medicine 10/16/24 Cristy Morton MD [address] [place] [address] [place] [place]O [address] Assigned Pediatric Specialist Provider 11/03/24 documented as of this encounter
--- OUTSIDE RECORDS SUMMARY | 2024-12-06 00:39 | XMS_ITS | Encounter Summary ---
Author Organization [facility] Address [address] [place] [address] Care Team Providers Care Rolled Seat Trimmer Name Role Phone Va Glez MD Primary Care Provider Va Glez MD Unavailable Christy CampuzanoC Unavailable [phone] Hans Cannon MD Unavailable Estella Hassan [facility] Unavailable [phone] Josh Cordero MD, Madhuri Unavailable [phone] John Webb MD Unavailable [phone] John Webb MD Unavailable Estella Hassan [facility] Unavailable [phone] Lindsay Carey OD Unavailable [phone] Richard Kam MD Unavailable Gaby Vila DO Unavailable [phone] Rosemarie Mcdowell RN Unavailable Mitra Kendall BEET TOPPER Unavailable [phone] Lizet Mann PA-C Unavailable Ravi Brownlee MD Unavailable Manuel Ahn OD Unavailable Thalia Charles [facility] Unavailable [phone] Nicolas Gaurav Bell SUCTION ROLLER 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 Unavailable [phone] Debbie Mann MD Unavailable [phone] Hakeem Chacko MB Unavailable Debbie Mann MD Unavailable [phone] Timothy Tejada MD Unavailable [phone] Timothy Tejada MD Unavailable [phone] Elsie Roberts SUCTION ROLLER 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 Unavailable + Cristy Morton MD Unavailable [phone] Georgie Anguiano PA-C Unavailable [phone] Encounter Details Date Type Department Care Team (Late st Contact Info) Description 11/07/2024 Results Follow-Up [facility] [address] [place] [phone] Rashard Gleason APRN 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 [address] [place] [address] Subj: Message about your results [...] Date Recorded PHQ-2 Score 6 11/01/2024 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[employer] Gender Identity Not on file Sexual Orientation Not on file Occupation Industry Job Start Date Job End Date Not on file Not on file Not on file Not on file documented as of this encounter Plan of Treatment Upcoming Encounters Date Type Department Care Team (Late st Contact Info) Description 12/11/2024 2:10 PM CDT Therapy Visit [address] [place] [phone] Shanta Cooper, PT 12/14/2024 11:20 AM CDT Office Visit [facility] [address] [place] [address] [place] [address] Lizet Mann PA-C [id number] [place] [address] 12/17/2024 2:10 PM CDT Office Visit [facility] [address] [place] [phone] Richard Kam MD [address] [place] [address] 12/19/2024 8:20 AM CDT Therapy Visit [place] [address] [place] [phone] Shanta Cooper, PT 12/24/2024 5:00 PM CDT Therapy Visit [place] [address] [place] [phone] Pattie Casillas, PT 12/25/2024 10:20 AM CDT Therapy Visit [facility] [place] [address] [place] [phone] Shanta Cooper, MOIZ 01/03/2025 1:00 PM CDT Office Visit [facility] [address] [place] [phone] Estella Hassan, [facility] [address] [place] [address] 01/03/2025 1:30 PM CDT Office Visit [facility] [address] [place] [phone] [place] [address] [place], [place] [phone] 01/08/2025 1:15 PM CDT Office Visit [facility] 2945 [facility] 200 [place] [address] Hakeem Chacko MBBS 2945 [place], [place] [phone] Scheduled Procedures Name Priority Associated Diagnoses Date/Ti me INJECTION, EPIDURAL, TRANSFO RAMINAL APPROACH Cervical radiculitis RELEASE, CARPAL TUNNEL, ENDOSCOPIC Right carpal tunnel syndrome documented as of this encounter Goals Goal Patient Goal Type Associated Problems Recent Progress Patient-Stated? Author Health Maintenance Care Plan HP GENERAL PROBLEM 100%(10/29/19 10:17 AM CDT) No Mitra Kendall, BEET TOPPER Note: Update on 05/25/22 Barriers: Currently without [...] for health insurance by looking in to [employer] and talking with a FRW. Completed 3. I will look for a new job and will access resources that the [employer] offers. . Sarted new job 4. [...] 2. I will contact [facility] to ask about medicare plans and if there are saving programs I qualify for by by calling [phone]. 3. I will see if I am eligible for unemployment after losing my job. I will call [phone] to ask for assistance with unemployment application. 4. I will apply for jobs. I will work with [employer] in finding a job ([employer]ower[employer].) 5. I will access [employer] and ask about financial resources (such as [...] Ronnie. 3. I will meet with community ammonia worker Manjula Gresham. 4. I will look in to attending an IOP program. I will discuss with my [place] [facility] therapist and number provided for [facility] Behavioral Access - [phone] to schedule assessment fr IOP program. 5. I will go to [facility] if I have concerning mental health symptoms. 6. I will access [facility] Crisis if needed by calling [phone]. 7. I will consider calling [facility] Adult Mental health intake at [phone]. documented as of this encounter Visit Diagnoses [...] documented as of this encounter Care Teams Rolled Seat Trimmer Relationship Specialty [place] [address] [place], [place] [phone] PCP - General Family Practice 07/11/14 [place] [address] [place] [address] Assigned PCP 12/16/11 Christy Campuzano PA-C [address] [place] [address] [phone] Referring Physician Family Medicine 04/22/20 Hans Cannon MD [address] [place] [address] Resident Pulmonary Disease 04/22/20 Estella Hassan, [facility] [address] [place] [address] Pharmacist Pharmacist 05/26/20 Elaina Moreno MD 909 [place] [address] Cardiovascular & Thoracic Surgery 08/06/20 John Webb MD [address] [place] [address] Cardiovascular Disease 08/25/21 John Webb MD [address] [place] [address] Cardiovascular Disease 08/25/21 [facility] 3033 [place] [address] Assigned MTM Pharmacist 12/09/21 [place] [address] [place] [address] [place] [address] Ophthalmology 01/29/22 Richard Kam MD [address] [place] [address] 698985 Assigned Musculoskeletal Provider 08/14/22 [place] [address] 944327 Assigned Neuroscience Provider 01/01/23 12/03/24 Rosemarie Mcdowell RN Window Installation Subcontractor Diabetes Education 03/17/23 Mitra Kendall, BEET TOPPER Lead Remote Medical Coder Primary Care - CC 12/12/23 Lizet Mann PA-C [address] [place] [address] Assigned Cancer Care Provider 01/04/24 Ravi Brownlee MD [address] [place] [address] Assigned Pulmonology Provider 01/04/24 Manuel Ahn OD 6341 [place] [address] Neonatal Doctor 01/05/24 Thalia Charles [facility] [address] [place], [place] [phone] Pharmacist Pharmacy 01/26/24 Gaurav Valenzuela APRN 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 606 [facility] 106 [place] [address] Assigned Sleep Provider 02/04/24 Debbie Mann MD 1600 [facility] 200 [place] [address] Cardiovascular Disease 02/24/24 Hakeem Chacko MBBS 2945 [place] [address] Assigned Rheumatology Provider 04/05/24 Debbie Mann MD 1600 [facility] 200 [place] [address] Assigned Heart and Vascular Provider 05/06/24 Timothy Tejada MD 6341 [facility] [place] [phone] Ophthalmology 05/29/24 Timothy Tejada MD 6341 [facility] [place] [phone] Assigned Surgical Provider 06/03/24 Elsie Roberts APRN 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 1600 [facility] 101 [address] [place] [address] Nurse Practitioner Pain Medicine 10/16/24 Cristy Morton MD [address] [place] [address] SHANKAR ROMO [phone] Assigned Pediatric Specialist Provider 11/03/24 Georgie Anguiano PA-C [address] 589305 Assigned Neuroscience Provider 12/04/24 documented as of this encounter
--- OUTSIDE RECORDS SUMMARY | 2024-12-06 00:39 | XMS_ITS | Encounter Summary ---
Author Organization [facility] Address [address] [place] [address] Care Team Providers Care Rigger Name Role Phone Va Glez MD Primary Care Provider [phone] Va Glez MD Unavailable Christy CampuzanoC Unavailable [phone] Hans Cannon MD Unavailable Estella Hassan [facility] Unavailable Josh Cordero MD, Madhuri Unavailable [phone] John Webb MD Unavailable John Webb MD Unavailable Estella Hassan [facility] Unavailable Lindsay Carey OD Unavailable Richard Kam MD Unavailable Gaby Vila DO Unavailable Rosemarie Mcdowell RN Unavailable [phone] Mitra Kendall EYELETTER Unavailable [phone] Lizet Mann PA-C Unavailable Ravi Brownlee MD Unavailable Manuel Ahn OD Unavailable Thalia Charles [facility] Unavailable [phone] Gaurav Valenzuela RADIOLOGIC TECHNOLOGIST CHIEF INSTRUMENT SHOP SUPERVISOR Unavailable [phone] Debbie Mann MD Unavailable +[phone] Hakeem Chacko [facility] Unavailable Debbie Mann MD Unavailable [phone] Timothy Tejada MD Unavailable [phone] Timothy Tejada MD Unavailable [phone] Elsie Roberts RADIOLOGIC TECHNOLOGIST CHIEF INSTRUMENT SHOP SUPERVISOR Unavailable + Cristy Morton MD Unavailable [phone] Encounter Details Date Type Department Care Team (Latest Contact Info) Description 11/07/2024 Travel Social History Tobacco Use Types Packs/Day [...] Answer Date Recorded PHQ-2 Score 6 11/01/2024 [facility] of Occupat ional Health - Occupational Stress [...] an overnight long term, 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.) Yes 11/05/2024 Are you worried [...] on file 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 Gender Identity Not on file Sexual Orientation Not on file Occupation Industry Job Start Date Job End Date Not on file Not on file Not on file Not on file documented as of this encounter Plan of Treatment Upcoming Encounters Date Type Department Care Team (Late st Contact Info) Description 12/11/2024 2:10 PM CDT Therapy Visit [place] [address] [place] [address] Shanta Cooper, PT 12/14/2024 11:20 AM CDT Office Visit [facility] [address] [place] [address] Lizet Mann PA-C [address] [facility] [place] [address] 12/17/2024 2:10 PM CDT Office Visit [facility] [address] 4th [place] [phone] Richard Kam MD [address] [place] [address] 12/19/2024 8:20 AM CDT Therapy Visit [address] [address] Shanta Cooper, PT 12/24/2024 5:00 PM CDT Therapy Visit [place] [address] [place] [address] Pattie Casillas, PT 12/25/2024 10:20 AM CDT Therapy Visit [place] [address] [place] [address] Shanta Cooper, PT 01/03/2025 1:00 PM CDT Office Visit [address] [phone] Estella Hassan, [facility] 3033 [place] [address] 01/03/2025 1:30 PM CDT Office Visit [facility] [address] [place] [address] [place] [address] [place] [address] 01/08/2025 1:15 PM CDT Office Visit [facility] 2945 [facility] 200 [place] [address] Hakeem Chacko MBBS 2945 [place] [address] Scheduled Procedures Name Priority Associated Diagnoses Date/Ti [...] job and will access resources that the [facility] offers. . Sarted new job 4. [...] by household income. 2. I will contact [employer] to ask about medicare plans and if there are saving programs I qualify for by by calling [phone]. 3. I will see if I am eligible for unemployment after losing my job. I will call [phone] to ask for assistance with unemployment application. 4. I will apply for jobs. I will work with [employer] in finding a job ([employer]owerment.) 5. I will access [employer] and ask about financial resources (such as [...] I will continue working with therapist at [facility]. 2. I will establish with Psychiatry. Planning to schedule with Ronnie. 3. I will meet with [facility] textile worker Manjula Gresham. 4. I will look in to attending an IOP program. I will discuss with my [place] [facility] therapist and number provided for [facility] Behavioral Access - [phone] to schedule assessment fr IOP program. 5. I will go to [facility] if I have concerning mental health symptoms. 6. I will access [facility] Crisis if needed by calling [phone]. 7. I will consider calling [facility] Adult Mental health intake at [phone]. documented as of this encounter Visit Diagnoses [...] accurate information and submit it to the [facility]. 3. I will update [facility] Team at outreach. Health Maintenance Due or Overdue 12/16/2023 Patient expresses financial resource strain 12/13 Mental Health Symptoms Need Improvement 04/05/19 25 Assessment Noted Time PHQ-9 Depression Total Score: 18 025 2:39 PM CDT documented as of this encounter Care Teams Rigger Relationship Specialty [place] [address] [place], [place] [phone] PCP - General Family Practice 07/11/14 [place] [address] [place], [place] [phone] Assigned PCP 12/16/11 Christy Campuzano PA-C [address] [place] [address] [id number] Referring Physician Family Medicine 04/22/20 Hans Cannon MD [address] [place] [address] 634982 Resident Pulmonary Disease 04/22/20 [facility] [address] [place], [place] [phone] Pharmacist Pharmacist 05/26/20 Elaina Mroeno MD 909 [place], [place] 151475 Cardiovascular & Thoracic Surgery 08/06/20 John Webb MD 6[address] [place] 304515 Cardiovascular Disease 08/25/21 John Webb MD [address] [place] 648075 Cardiovascular Disease 08/25/21 Estella Hassan, [facility] [address] [place] [address] Assigned MTM Pharmacist 12/09/21 Lindsay Carey OD [address] [facility] [place] [address] Ophthalmology 01/29/22 Richard Kam MD [address] [place] [address] Assigned Musculoskeletal Provider 08/14/22 [place] [address] [place] , [address] [address] Assigned Neuroscience Provider 01/01/23 12/03/24 Rosemarie Mcdowell, RN Probe Operator Diabetes Education 03/17/23 Mitra Kendall, EYELETTER Lead Wood Dowel Machine Operator Primary Care - CC 12/12/23 Lizet Mann PA-C [address] [place] [address] Assigned Cancer Care Provider 01/04/24 Ravi Brownlee MD [address] [place] [address] 276 [place], [place] 105125 Assigned Pulmonology Provider 01/04/24 Manuel Ahn, ARA 6341 [facility] [place] [address] Bunghole Borer 01/05/24 Thalia Charles [facility] [address] [place], [place] [phone] Pharmacist Pharmacy 01/26/24 Gaurav Valenzuela APRN INSTRUMENT SHOP SUPERVISOR [address] [facility] 106 [place] [address] Assigned Sleep Provider 02/04/24 Debbie Mann MD 1600 [facility] 200 [place], [place] [phone] Cardiovascular Disease 02/24/24 Hakeem Chacko MBBS 2945 [place] [address] Assigned Rheumatology Provider 04/05/24 Debbie Mann MD 1600 [facility] 200 [place] [address] Assigned Heart and Vascular Provider 05/06/24 Timothy Tejada MD 6341 [place] [address] Ophthalmology 05/29/24 Timothy Tejada MD 6341 [place] [address] Assigned Surgical Provider 06/03/24 Elsie Roberts APRN INSTRUMENT SHOP SUPERVISOR 1600 [facility] 101 [place] [address] Nurse Practitioner Pain Medicine 10/16/24 Cristy Morton MD [address] [place], [place] [address] Assigned Pediatric Specialist Provider 11/03/24 documented as of this encounter
--- OUTSIDE RECORDS SUMMARY | 2024-12-06 00:39 | XMS_ITS | Encounter Summary ---
Author Organization [facility] Address [address] [place] [address] Care Team Providers Care Line Mover Name Role Phone Va Glez MD Primary Care Provider [phone] Va Glez MD Unavailable Christy CampuzanoC Unavailable [phone] Hans Cannon MD Unavailable [phone] Estella Hassan [facility] Unavailable Josh Cordero MD, Madhuri Unavailable [phone] John Webb MD Unavailable [phone] John Webb MD Unavailable [phone] Estella Hassan [facility] Unavailable [phone] Lindsay Carey OD Unavailable Richrad Kam MD Unavailable Gaby Vila DO Unavailable [phone] Rosemarie Mcdowell RN Unavailable Mitra Kendall CORDAGE SALES REPRESENTATIVE Unavailable [phone] Lizet Mann PA-C Unavailable Ravi Brownlee MD Unavailable Manuel Ahn OD Unavailable [phone] Thalia Charles [facility] Unavailable [phone] Gaurav Valenzuela PARTS COUNTER SALES PERSON AN/SQQ 89(V)15 SONAR SYSTEM JOURNEYMAN Unavailable [phone] Debbie Mann MD Unavailable [phone] [facility] Unavailable Debbie Mann MD Unavailable [phone] Timothy Tejada MD Unavailable [phone] Timothy Tejada MD Unavailable [phone] Elsie Roberts PARTS COUNTER SALES PERSON AN/SQQ 89(V)15 SONAR SYSTEM JOURNEYMAN Unavailable + Cristy Morton MD Unavailable [phone] Encounter Details Date Type Department Care Team (Latest Contact Info) Description 11/10/2024 Travel Social History Tobacco Use Types Packs/Day [...] re latives? 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 Gender Identity Not on file Sexual Orientation Not on file Occupation Industry Job Start Date Job End Date Not on file Not on file Not on file Not on file documented as of this encounter Plan of Treatment Upcoming Encounters Date Type Department Care Team (Late st Contact Info) Description 12/11/2024 2:10 PM CDT Therapy Visit [place] [address] [place] [address] Shanta Cooper, PT 12/14/2024 11:20 AM CDT Office Visit [facility] [address] [place] [address] Lizet Mann PA-C [address] [address] [place] [address] 12/17/2024 2:10 PM CDT Office Visit [facility] [address] 4th [place] [address] Richard Kam MD [address] [place] [address] 12/19/2024 8:20 AM CDT Therapy Visit [address] [address] Shanta Cooper, PT 12/24/2024 5:00 PM CDT Therapy Visit [place] [address] [place] [address] Pattie Casillas, PT 12/25/2024 10:20 AM CDT Therapy Visit [place] [address] [place] [address] Shanta Cooper, PT 01/03/2025 1:00 PM CDT Office Visit [address] [phone] Estella Hassan, [facility] 3033 [place] [address] 01/03/2025 1:30 PM CDT Office [facility] [address] [place] [address] [place] [address] [place] [address] 01/08/2025 1:15 PM CDT Office Visit [facility] 2945 [facility] 200 [place] [address] Hakeem Chacko MBBS 2945 [place] [address] Scheduled Procedures Name Priority Associated Diagnoses Date/Ti [...] job and will access resources that the [employer] offers. . Sarted new job 4. [...] by household income. 2. I will contact [employer] to ask about medicare plans and if there are saving programs I qualify for by by calling [phone]. 3. I will see if I am eligible for unemployment after losing my job. I will call [phone] to ask for assistance with unemployment application. 4. I will apply for jobs. I will work with [employer] in finding a job (Empowerment.) 5. I will access [employer] and ask about financial resources (such as [...] meet with [facility] bulk intake worker Manjula Gresham. 4. I will look in to attending an IOP program. I will discuss with my [place] [facility] therapist and number provided for [facility] Behavioral Access - [phone] to schedule assessment fr IOP program. 5. I will go to [facility] if I have concerning mental health symptoms. 6. I will access [facility] Crisis if needed by calling [phone]. 7. I will consider calling [facility] Adult Mental health intake at [phone]. documented as of this encounter Visit Diagnoses [...] accurate information and submit it to the [facility]. 3. I will update [facility] Team at outreach. Health Maintenance Due or Overdue 12/16/2023 Patient expresses financial resource strain 12/13 Mental Health Symptoms Need Improvement 04/05/19 25 Assessment Noted Time PHQ-9 Depression Total Score: 18 025 2:39 PM CDT documented as of this encounter Care Teams Line Mover Relationship Specialty [place] [address] [place], [place] [phone] PCP - General Family Practice 07/11/14 [place] [address] [place], [place] 12476[address] Assigned PCP 12/16/11 Christy Campuzano PA-C [address] [place] [address] [id number] Referring Physician Family Medicine 04/22/20 Hans Cannon MD [address] [place] [address] 772992 Resident Pulmonary Disease 04/22/20 [facility] [address] [place], [place] [phone] Pharmacist Pharmacist 05/26/20 Elaina Moreno MD 909 [place], [place] 316925 Cardiovascular & Thoracic Surgery 08/06/20 John Webb MD [address] [place] 639015 Cardiovascular Disease 08/25/21 John Webb MD [address] [place] 874495 Cardiovascular Disease 08/25/21 Estella Hassan, [facility] [address] [place] [address] Assigned MTM Pharmacist 12/09/21 Lindsay Carey OD 3305 [facility] [place] [address] Ophthalmology 01/29/22 Richard Kam MD [address] [place] [address] Assigned Musculoskeletal Provider 08/14/22 [place] [address] [place] , [address] [address] Assigned Neuroscience Provider 01/01/23 12/03/24 Rosemarie Mcdowell, RN Compound Machine Operator Diabetes Education 03/17/23 Mirta Kendall, CORDAGE SALES REPRESENTATIVE Lead Caption Writer Primary Care - CC 12/12/23 Lizet Mann PA-C [address] [place] [address] Assigned Cancer Care Provider 01/04/24 Ravi Brownlee MD [address] [place] [address] 276 [place], [place] 410795 Assigned Pulmonology Provider 01/04/24 Manuel Ahn, ARA 6341 [facility] [place] [address] Steam Flattener 01/05/24 Thalia Charles [facility] [address] [place], [place] [phone] Pharmacist Pharmacy 01/26/24 Gaurav Valenzuela APRN AN/SQQ 89(V)15 SONAR SYSTEM JOURNEYMAN [address] [facility] 106 [place] [address] Assigned Sleep Provider 02/04/24 Debbie Mann MD 1600 [facility] 200 [place], [place] [phone] Cardiovascular Disease 02/24/24 Hakeem Chacko MBBS 2945 [place] [address] Assigned Rheumatology Provider 04/05/24 Debbie Mann MD 1600 [facility] 200 [place] [address] Assigned Heart and Vascular Provider 05/06/24 Timothy Tejada MD 6341 [place] [address] Ophthalmology 05/29/24 Timothy Tejada MD 6341 [place] [address] Assigned Surgical Provider 06/03/24 Elsie Roberts APRN AN/SQQ 89(V)15 SONAR SYSTEM JOURNEYMAN 1600 [facility] 101 [place] [address] Nurse Practitioner Pain Medicine 10/16/24 Cristy Morton MD [address] [place], [place] [address] Assigned Pediatric Specialist Provider 11/03/24 documented as of this encounter
--- OUTSIDE RECORDS SUMMARY | 2024-12-06 00:40 | XMS_ITS | Encounter Summary ---
Author Organization [place] Address [address] [place] [address] Care Team Providers Care Charge Master Coordinator Name Role Phone Va Glez MD Primary Care Provider [phone] Va Glez MD Unavailable Christy CampuzanoC Unavailable [phone] Hans Cannon MD Unavailable [phone] Estella Hassan [facility] Unavailable Josh Cordero MD, Madhuri Unavailable [phone] John Webb MD Unavailable John Webb MD Unavailable [phone] Estella Hassan [facility] Unavailable [phone] Lindsay Carey OD Unavailable [phone] Richard Kam MD Unavailable Gaby Vila DO Unavailable [phone] Rosemarie Mcdowell RN Unavailable [phone] Mitra Kendall MEDICAL REIMBURSEMENT SPECIALIST Unavailable [phone] Lizet Mann PA-C Unavailable Ravi Brownlee MD Unavailable Manuel Ahn OD Unavailable [phone] Thalia Charles [facility] Unavailable [phone] Nicolas Gaurav Bell SERVICE PROVIDER PLASTIC SEWER Unavailable [phone] Debbie Mann MD Unavailable [phone] Hakeem Chacko MB Unavailable Debbie Mann MD Unavailable [phone] Timothy Tejada MD Unavailable [phone] Timothy Tejada MD Unavailable [phone] Elsie Roberts SERVICE PROVIDER PLASTIC SEWER Unavailable + Cristy Morton MD Unavailable [phone] Encounter Details Date Type Department Care Team (Late st Contact Info) Description 11/13/2024 [facility] [address] [place] [phone] [place]lez [place] [address] [place] [address] [phone] Social History Tobacco Use Types Packs/Day Years [...] re latives? 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 documented in this encounter Plan of Treatment Upcoming Encounters Date Type Department Care Team (Late st Contact Info) Description 12/11/2024 2:10 PM CDT Therapy Visit [address] [phone] Shanta Cooper, PT 12/14/2024 11:20 AM CDT Office Visit [address] [phone] Lizet Mann PA-C [address] [place] [address] 12/17/2024 2:10 PM CDT Office Visit [facility] [address] [place] [address] Richard Kam MD [address] [place] [address] 12/19/2024 8:20 AM CDT Therapy Visit [address] [place] [address] Shanta Cooper, PT 12/24/2024 5:00 PM CDT Therapy Visit [address] [place] [address] Pattie Casillas, PT 12/25/2024 10:20 AM CDT Therapy Visit [address] [phone] Shanta Cooper, PT 01/03/2025 1:00 PM CDT Office Visit [address] [address] Estella Hassan, [facility] 3033 [place] [address] 01/03/2025 1:30 PM CDT Office Visit [address] [phone] [place] [address] [place] [address] 01/08/2025 1:15 PM CDT Office Visit [facility] 2945 [facility] 200 [place] [address] Hakeem Chacko MBBS 2945 [place], [place] [phone] Scheduled Procedures Name Priority Associated Diagnoses Date/Ti me INJECTION, EPIDURAL, TRANSFO RAMINAL APPROACH Cervical radiculitis RELEASE, CARPAL TUNNEL, ENDOSCOPIC Right carpal tunnel syndrome documented as of this encounter Goals Goal Patient Goal Type Associated Problems Recent Progress Patient-Stated? Author Health Maintenance Care Plan HP GENERAL PROBLEM 100%(10/29/19 10:17 AM CDT) No Mitra Kendall, MEDICAL REIMBURSEMENT SPECIALIST Note: Update on 05/25/22 Barriers: Currently [...] for health insurance by looking in to [employer] and talking with a FRW. Completed 3. I will look for a new job and will access resources that the [employer] offers. . Sarted new job 4. Continue [...] by household income. 2. I will contact [facility] to ask about medicare plans and if there are saving programs I qualify for by by calling [phone]. 3. I will see if I am eligible for unemployment after losing my job. I will call [phone] to ask for assistance with unemployment application. 4. I will apply for jobs. I will work with [employer] [facility] in finding a job (Empowerment.) 5. I will access [employer] and ask about financial resources (such as [...] I will continue working with therapist at [facility]. 2. I will establish with Psychiatry. Planning to schedule with Ronnie. 3. I will meet with community food prep worker Manjula Gresham. 4. I will look in to attending an IOP program. I will discuss with my [place] [facility] therapist and number provided [facility] - [phone] to schedule assessment fr IOP program. 5. I will go to [facility] if I have concerning mental health symptoms. 6. I will access [facility] Crisis if needed by calling [phone]. 7. I will consider calling [facility] Adult Mental health intake at [phone]. documented as of this encounter Visit Diagnoses Diagnosis Exacerbation of asthma, unspecified asthma severity, unspecified whether persistent documented in this encounter Additional Health Concerns [...] documented as of this encounter Care Teams Charge Master Coordinator Relationship Specialty [place] [address] [place], [place] [phone] PCP - General Family Practice 07/11/14 [place] [address] [place] [address] Assigned PCP 12/16/11 Christy Campuzano PA-C [address] [place] [address] 0826[address] Referring Physician Family Medicine 04/22/20 Hans Cannon MD [address] [place] [address] Resident Pulmonary Disease 04/22/20 Estella Hassan, [facility] 3033 [place] [address] Pharmacist Pharmacist 05/26/20 Elaina Moreno MD 909 [place] [address] Cardiovascular & Thoracic Surgery 08/06/20 John Webb MD [address] [place] [address] Cardiovascular Disease 08/25/21 John Webb MD [address] [place] [address] Cardiovascular Disease 08/25/21 Estella Hassan, [facility] 3033 [place] [address] Assigned MTM Pharmacist 12/09/21 Lindsay Carey OD [address] [facility] [place] [address] Ophthalmology 01/29/22 Richard Kam MD [address] [place] [address] 241695 Assigned Musculoskeletal Provider 08/14/22 [place] [address] [address] Assigned Neuroscience Provider 01/01/23 12/03/24 Rosemarie Mcdowell, RN Coordinator Volunteer Services Diabetes Education 03/17/23 Mitra Kendall, MEDICAL REIMBURSEMENT SPECIALIST Lead Ammonium Sulfate Operator Primary Care - CC 12/12/23 Lizet Mann PA-C [address] [address] [place] [address] Assigned Cancer Care Provider 01/04/24 Ravi Brownlee MD 420 [facility] 276 [place] [address] Assigned Pulmonology Provider 01/04/24 Manuel Ahn OD 6341 [place] [address] Delivery Aide 01/05/24 Thalia Charles [facility] [address] [place], [place] [phone] Pharmacist Pharmacy 01/26/24 Gaurav Valenzuela APRN PLASTIC SEWER 606 [facility] 106 [place] [address] Assigned Sleep Provider 02/04/24 Debbie Mann MD 1600 [facility] 200 [place], [place] [phone] Cardiovascular Disease 02/24/24 Hakeem Chacko MBBS 2945 [place] [address] Assigned Rheumatology Provider 04/05/24 Debbie Mann MD 1600 [facility] 200 [place], [place] [phone] Assigned Heart and Vascular Provider 05/06/24 Timothy Tejada MD 6341 [place] [phone] Ophthalmology 05/29/24 Timothy Tejada MD 6341 [facility] [place] [address] Assigned Surgical Provider 06/03/24 Elsie Roberts APRN PLASTIC SEWER [address] [place] [phone] Nurse Practitioner Pain Medicine 10/16/24 Cristy Morton MD [address] [place] [address] [place] [id number] Assigned Pediatric Specialist Provider 11/03/24 documented as of this encounter
--- OUTSIDE RECORDS SUMMARY | 2024-12-06 00:40 | XMS_ITS | Encounter Summary ---
Author Organization [facility] Address [address] [place] [address] Care Team Providers Care Museum Curator Name Role Phone Va Glez MD Primary Care Provider [phone] Va Glez MD Unavailable Christy CampuzanoC Unavailable [phone] Hans Cannon MD Unavailable Estella Hassan [facility] Unavailable Josh Cordero MD, Madhuri Unavailable [phone] John Webb MD Unavailable [phone] John Webb MD Unavailable Estella Hassan [facility] Unavailable Lindsay Carey OD Unavailable Richard Kam MD Unavailable Gaby Vila DO Unavailable Rosemarie Mcdowell RN Unavailable [phone] Mitra Kendall ASSEMBLY MACHINE OPERATOR Unavailable [phone] Lizet Mann PA-C Unavailable Ravi Brownlee MD Unavailable Manuel Ahn OD Unavailable Thalia Charles [facility] Unavailable [phone] Gaurav Valenzuela Ray SUPERVISOR MAPPING GEOMETRY TUTOR Unavailable [phone] Debbie Mann MD Unavailable [phone] Hakeem Chacko MB Unavailable Debbie Mann MD Unavailable [phone] Timothy Tejada MD Unavailable [phone] Timothy Tejada MD Unavailable [phone] Elsie Roberts SUPERVISOR MAPPING GEOMETRY TUTOR Unavailable + Cristy Morton MD Unavailable [phone] Encounter Details Date Type Department Care Team (Late st Contact Info) Description 11/14/2024 Telephone [facility] [place] [id number] [facility] [address] [place] [address] Richard Kam MD [address] [place] [address] Social History Tobacco Use Types [...] re latives? Once a week 09/27/2024 Attends Nondenominational Services Not on file 09/27 Active Member [...] Answer Date Recorded PHQ-2 Score 6 11/01/2024 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 Patient is agreeable with this plan and will inform us re: any changes in symptoms after the nerve root block on 12-04-24. He will give it some time to work and see how it affects him. He had no other questions for Dr Kam at this time. Angi Alejandre RN * Telephone Encounter - Angi Alejandre RN - 11/14/2024 3:[address] Kam responded and states that since his block is scheduled 12/04 which is a Tuesday and a non-surgery day so he is unable to do this as a co-surgery. Dr Kam advises he should get the injection done and see how he does, after which we can reassess if the carpal tunnel release is still necessary. 3:15 pm Attempted to reach patient by phone, no answer, voice mail box is full so unable to leave message. Will attempt again. Angi Alejandre RN * Telephone Encounter - Angi Alejandre RN - 11/14/2024 1:05 PM CDT 12:19 pm Spoke with patient. He was in the hospital recently 11-01-24 to 11-04-24 for bilateral lowerleg cellulitis and was diagnosed with atrial fibrillation while there. He also became ill while there with diarrhea from the antibiotics. Now he is feeling much better, states he no longer has symptoms of cellulitis in legs. Has some scabs remaining on legs and he thinks those are from some bug bites. No current symptoms of illness. Hewas not placed on a blood thinner for the atrial fibrillation, he states they gave him a Lovenox injection but nothing more than that. He has a procedure scheduled at the [facility] for a selective nerve root block at C5/[address] local anesthesia with Dr Jens Colon. He is wondering if he needs to do this procedure first before planning on having the left endoscopic carpal tunnel release with Dr Kam. Or, if possible, could the 2 procedures be on the same day? Message to provider for recommendation. Angi Alejandre, INOCENCIO * Telephone Encounter - Sarina Elizondo - 11/14/2024 10:40 AM CDT Other: Pt is requesting a call back to reschedule surgery Could we send this information to you in [facility] or would you prefer to receive a phone call?: Patient would prefer a phone call Okay to leave a detailed message?: Yes at Cell number on file: Telephone Information: documented in this encounter Plan of Treatment Upcoming Encounters Date Type Department Care Team (Late st Contact Info) Description 12/11/2024 2:10 PM CDT Therapy Visit [facility] [address] [place] [phone] Shanta Cooper, PT 12/14/2024 11:20 AM CDT Office Visit [facility] [address] [place] [phone] Lizet Mann PA-C [address] [place] [address] 12/17/2024 2:10 PM CDT Office Visit [facility] [address] [place] [phone] Richard Kam MD [address] [place] [address] 12/19/2024 8:20 AM CDT Therapy Visit [address] [address] Shanta Cooper, PT 12/24/2024 5:00 PM CDT Therapy Visit [address] [phone] Pattie Casillas, PT 12/25/2024 10:20 AM CDT Therapy Visit [address] [phone] Shanta Cooper, PT 01/03/2025 1:00 PM CDT Office Visit [address] [phone] Estella Hassan[address] [address] 01/03/2025 1:30 PM CDT Office Visit [address] [phone] Va Glez MD [address] [place] [address] 01/08/2025 1:15 PM CDT Office Visit [facility] [address] [place] [phone] Hakeem Chacko MBBS [address] [place] [address] Scheduled Procedures Name Priority Associated Diagnoses Date/Ti [...] for health insurance by looking in to [employer] and talking with a FRW. Completed 3. [...] by household income. 2. I will contact [facility] to ask about medicare plans and if there are saving programs I qualify for by by calling [phone]. 3. I will see if I am eligible for unemployment after losing my job. I will call [phone] to ask for assistance with unemployment application. 4. I will apply for jobs. I will work with [employer] in finding a job ([employer].) 5. I will access [employer] and ask about financial resources (such as [...] I will continue working with therapist at [facility]. 2. I will establish with Psychiatry. Planning to schedule with Ronnie. 3. I will meet with community steel worker Manjula Gresham. 4. I will look in to attending an IOP program. I will discuss with my [facility] therapist and number provided for [facility] Behavioral Access - [phone] to schedule assessment fr IOP program. 5. I will go to [facility] if I have concerning mental health symptoms. 6. I will access [facility] Crisis if needed by calling [phone]. 7. I will consider calling [facility] Adult Mental health intake at [phone]. documented as of this encounter Visit Diagnoses [...] documented as of this encounter Care Teams Museum Curator Relationship Specialty [place] [address] [place] [address] PCP - General Family Practice 07/11/14 [place] [address] [place] [address] Assigned PCP 12/16/11 Christy Campuzano PA-C [address] [place] [address] Referring Physician Family Medicine 04/22/20 Hans Cannon MD 4151 [place] [address] Resident Pulmonary Disease 04/22/20 Estella Hassan, [facility] [address] [place] [address] Pharmacist Pharmacist 05/26/20 Elaina Moreno MD [address] [place] [address] Cardiovascular & Thoracic Surgery 08/06/20 John Webb MD [address] [place] 685985 Cardiovascular Disease 08/25/21 John Webb MD [address] [place] 163245 Cardiovascular Disease 08/25/21 Estella Hassan, [facility] [address] [place] [address] Assigned MTM Pharmacist 12/09/21 Lindsay Carey OD [address] [facility] [place] [address] Ophthalmology 01/29/22 Richard Kam MD [address] [place] [address] 919715 Assigned Musculoskeletal Provider 08/14/22 [place] [address] 204547 Assigned Neuroscience Provider 01/01/23 12/03/24 Rosemarie Mcdowell, RN Denture Waxer Diabetes Education 03/17/23 Mitra Kendall, ASSEMBLY MACHINE OPERATOR Lead Shake Maker Primary Care - CC 12/12/23 Lizet Mann PA-C [address] [place] [address] Assigned Cancer Care Provider 01/04/24 Ravi Brownlee MD [address] [place] [address] 276 [place] [address] Assigned Pulmonology Provider 01/04/24 Manuel Ahn OD 6341 [place] [address] Structural Steel Erection Supervisor 01/05/24 Thalia Charles [facility] [address] [place], [place] [phone] Pharmacist Pharmacy 01/26/24 Gaurav Valenzuela, SUPERVISOR MAPPING GEOMETRY TUTOR [address] [place] [address] 106 [place] [address] Assigned Sleep Provider 02/04/24 Debbie Mann MD 1600 [facility] 200 [place], [place] [phone] Cardiovascular Disease 02/24/24 Hakeem Chacko MBBS [address]45 [place], [place] [address] Assigned Rheumatology Provider 04/05/24 Debbie Mann MD 1600 [facility] 200 [place] [address] Assigned Heart and Vascular Provider 05/06/24 Timothy Tejada MD [address] [place] [phone] MD Ophthalmology 05/29/24 Timothy Tejada MD [address] [place] [phone] Assigned Surgical Provider 06/03/24 Elsie Roberts APRN CNP [address] [facility] 101 [place] [address] Nurse Practitioner Pain Medicine 10/16/24 Cristy Morton MD [facility] [place] [address] Assigned Pediatric Specialist Provider 11/03/24 documented as of this encounter
--- OUTSIDE RECORDS SUMMARY | 2024-12-06 00:40 | XMS_ITS | Encounter Summary ---
Author Organization [employer] Address [address] [place] [address] Care Team Providers Care Core Mounter Name Role Phone Va Glez MD Primary Care Provider Va Glez MD Unavailable Christy Campuzano PAUniqueC Unavailable [phone] Hans Cannon MD Unavailable [phone] Estella Hassan [facility] Unavailable Josh Cordero MD, Madhuri Unavailable [phone] John Webb MD Unavailable John Webb MD Unavailable Estella Hassan [facility] Unavailable [phone] Lindsay Carye OD Unavailable [phone] Richard Kam MD Unavailable Gaby Vila DO Unavailable Rosemarie Mcdowell RN Unavailable Mitra Kendall WILDLIFE ECOLOGY PROFESSOR Unavailable [phone] Lizet Mann PA-C Unavailable Ravi Brownlee MD Unavailable Nav Hughes MD Unavailable [phone] Manuel Ahn OD Unavailable [phone] Thalia Charles [facility] Unavailable [phone] Gaurav Valenzuela LEAD PROGRAMMER PRINTED CIRCUIT BOARD DESIGNER Unavailable [phone] Manuel Ahn Kunal OD Unavailable [phone] Debbie Mann MD Unavailable [phone] Hakeem Chacko Unavailable Debbie Mann MD Unavailable [phone] Timothy Tejada MD Unavailable [phone] Timothy Tejada MD Unavailable [phone] Elsie Roberts LEAD PROGRAMMER PRINTED CIRCUIT BOARD DESIGNER Unavailable + Cristy Morton MD Unavailable [phone] Georgie AnguianoC Unavailable [phone] Encounter Details Date Type Department Care Team (Late st Contact Info) Description 04/27/2024 [facility] [address] [address] Nato Puga, RN Social History Tobacco Use Types Packs/Day [...] re latives? 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 Gender Identity Not on file Sexual Orientation Not on file Occupation Industry Job Start Date Job End Date Not on file Not on file Not on file Not on file documented as of this encounter Plan of Treatment Upcoming Encounters Date Type Department Care Team (Late st Contact Info) Description 12/11/2024 2:10 PM CDT Therapy Visit [address] [phone] Shanta Cooper, PT 12/14/2024 11:20 AM CDT Office Visit [facility] [address] [place] [address] Lizet Mann PA-C [id number] [place], [place] [address] [place] [address] 12/17/2024 2:10 PM CDT Office Visit [facility] [address] [place] [phone] Richard Kam MD [address] [place] [address] 12/19/2024 8:20 AM CDT Therapy [place] [address] [place] [phone] Shanta Cooper, PT 12/24/2024 5:00 PM CDT Therapy [place] [address] [place] [phone] Pattie Casillas, PT 12/25/2024 10:20 AM CDT [facility] [address] [place] [address] Shanta Cooper, MOIZ 01/03/2025 1:00 PM CDT Office Visit [facility] [address] [place] [phone] Estella Hassan, [facility] 30[address] [place] [address] 01/03/2025 1:30 PM CDT Office Visit [facility] [address] [place] [address] [place] [address] [place], [place] [address] 01/08/2025 1:15 PM CDT Office Visit [facility] 2945 [facility] 200 [place] [address] Hakeem Chacko MBBS [address] [place], [place] [phone] Scheduled Procedures Name Priority Associated Diagnoses Date/Ti me INJECTION, EPIDURAL, TRANSFO RAMINAL APPROACH Cervical radiculitis RELEASE, CARPAL TUNNEL, ENDOSCOPIC Right carpal tunnel syndrome documented as of this encounter Goals Goal Patient Goal Type Associated Problems Recent Progress Patient-Stated? Author Health Maintenance Care Plan HP GENERAL PROBLEM 100%(10/29/19 10:17 AM CDT) No Mitra Kendall, WILDLIFE ECOLOGY PROFESSOR Note: Update on 05/25/22 Barriers: Currently without [...] for health insurance by looking in to [employer] and talking with a FRW. Completed 3. I will look for a new job and will access resources that the [employer] offers. . Sarted new job 4. Continue [...] programs I qualify for by by calling [phone]. 3. I will see if I am eligible for unemployment after losing my job. I will call [phone] to ask for assistance with unemployment application. 4. I will apply for jobs. I will work with [employer] in finding a job ([employer]ower[employer].) 5. I will access [employer] and ask about financial resources (such as [...] Ronnie. 3. I will meet with community drug abuse worker Manjula Gresham. 4. I will look in to attending an IOP program. I will discuss with my [facility] therapist and number provided for [facility] Behavioral Access - [phone] to schedule assessment fr IOP program. 5. I will go to [facility] if I have concerning mental health symptoms. 6. I will access [facility] Crisis if needed by calling [phone]. 7. I will consider calling [facility] Adult Mental health intake at [phone]. documented as of this encounter Visit Diagnoses [...] Depression Total Score: 4 03/28/19 2:25 PM TURRET LATHE OPERATOR documented as of this encounter Care Teams Core Mounter Relationship Specialty [place] [address] [place] [address] PCP - General Family Practice 07/11/14 [place] [address] [place] [address] Assigned PCP 12/16/11 Christy Campuzano PA-C [address] [place] [address] 295682 Referring Physician Family Medicine 04/22/20 Hans Cannon MD [address] [place] [address] 176672 Resident Pulmonary Disease 04/22/20 Estella Hassan, [facility] 3033 [place] [address] Pharmacist Pharmacist 05/26/20 Elaina Moreno MD [address]09 [place] [address] Cardiovascular & Thoracic Surgery 08/06/20 John Webb MD [address] 085465 Cardiovascular Disease 08/25/21 John Webb MD [address] [place] 289665 Cardiovascular Disease 08/25/21 Estella Hassan, [facility] 30[address] [place] [address] Assigned MTM Pharmacist 12/09/21 Lindsay Carey OD [address] [facility] [place] [address] Ophthalmology 01/29/22 Richard Kam MD 500 [place] [address] Assigned Musculoskeletal Provider 08/14/22 [place] [address] [address] Assigned Neuroscience Provider 01/01/23 12/03/24 Rosemarie Mcdowell, RN Contracts Officer Diabetes Education 03/17/23 Mitra Kendall, WILDLIFE ECOLOGY PROFESSOR Lead Painter Drum Primary Care - CC 12/12/23 Lizet Mann PA-C [address] [place] [address] Assigned Cancer Care Provider 01/04/24 Ravi Brownlee MD 420 [facility] 276 [place] [address] Assigned Pulmonology Provider 01/04/24 Nav Hughes MD 6405 [facility] [address] [place], [place] 837315 Assigned Heart and Vascular Provider 01/04/24 05/05/24 Manuel Ahn, OD 6341 [place] [address] Professor Of Historical Theology 01/05/24 Thalia Charles [facility] [address] [place], [place] [phone] Pharmacist Pharmacy 01/26/24 Gaurav Valenzuela APRN PRINTED CIRCUIT BOARD DESIGNER [address] [place] [address] Assigned Sleep Provider 02/04/24 Manuel Ahn, OD 6341 [place] [address] Assigned Surgical Provider 02/04/24 06/02/24 Debbie Mann MD [address] [facility] [address] [place] [address] Cardiovascular Disease 02/24/24 Hakeem Chacko MBBS [address] [place] [address] Assigned Rheumatology Provider 04/05/24 Debbie Mann MD 1600 [facility] 200 [place] [address] Assigned Heart and Vascular Provider 05/06/24 Timothy Tejada MD 6341 [place] [phone] Ophthalmology 05/29/24 Timothy Tejada MD [address]341 [place] [phone] Assigned Surgical Provider 06/03/24 Elsie Roberts APRN PRINTED CIRCUIT BOARD DESIGNER 1600 [facility] 101 [place] [address] Nurse Practitioner Pain Medicine 10/16/24 Cristy Morton MD [address] [place] [address] [place]O [address] Assigned Pediatric Specialist Provider 11/03/24 Georgie Anguiano PA-C 6545 [facility] SH[address] [place] 109375 Assigned Neuroscience Provider 12/04/24 documented as of this encounter
--- OUTSIDE RECORDS SUMMARY | 2024-12-06 00:40 | XMS_ITS | Encounter Summary ---
Author Organization [place] Address [address] [place] [address] Care Team Providers Care Overseamer Name Role Phone Va Glez MD Primary Care Provider [phone] Va Glez MD Unavailable Christy CampuzanoC Unavailable [phone] Hans Cannon MD Unavailable Estella Hassan [facility] Unavailable Josh Cordero MD, Madhuri Unavailable [phone] John Webb MD Unavailable [phone] John Webb MD Unavailable [phone] Estella Hassan [facility] Unavailable [phone] Lindsay Carey OD Unavailable Richard Kam MD Unavailable Gaby Vila DO Unavailable [phone] Rosemarie Mcdowell RN Unavailable [phone] Mitra Kendall BIODIESEL PRODUCT MANAGER Unavailable [phone] Lizet Mann PA-C Unavailable [phone] Ravi Brownlee MD Unavailable [phone] Manuel Ahn OD Unavailable [phone] Thalia Charles [facility] Unavailable [phone] Nicolas Gaurav Bell BLACK BELT RESOURCE RECOVERY ENGINEER Unavailable [phone] Debbie Mann MD Unavailable [phone] Hakeem Chacko MB Unavailable Debbie Mann MD Unavailable [phone] Timothy Tejada MD Unavailable [phone] Timothy Tejada MD Unavailable [phone] Elsie Roberts BLACK BELT RESOURCE RECOVERY ENGINEER Unavailable + Cristy Morton MD Unavailable [phone] Reason for Visit * Reason Onset Date Comments Procedure 11/13/2024 Cervical Nerve r oot Encounter Details Date Type Department Care Team (Late st Contact Info) Description 11/13/2024 Telephone [facility] [address] [place] [address] Jens Colon IV, MD [address] [place] [address] Procedure (Cervical Nerve root ) Social History Tobacco Use Types Packs/Day [...] re latives? Once a week 09/27/2024 Attends Mormonism Services Not on file 09/27 Active Member [...] Answer Date Recorded PHQ-2 Score 6 11/01/2024 [facility] ional 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 Pre procedure instructions were sent to the patient. Erin Bell RNCC * Telephone Encounter - Molly Millan - 11/14/2024 10:26 AM CDT Called patient to schedule procedure with Dr. Colon Date of Procedure: 12/04/24 Arrival time given: Yes: Arrival Time 10:30 AM Procedure Location: [facility] Verified Location with Patient: Yes [facility] 5th Floor Pre-op H&P Required: No: Local Post-Op/Follow Up Appt: Not Indicated in Request Informed patient they will need a route delivery driver to drive them home: Yes Patients Territory Sales Professional: Family/friend Patient is aware that pre-op RN from the procedure center will call 2-3 days prior to scheduled procedure to confirm arrival time and review any instructions: Yes Additional Comments: Pt would prefer a phone call to talk to the nurses instead of my chart message. Molly Millan on 11/14/2024 at 10:27 AM P: [phone] * Telephone Encounter - Perri Palacio MA - 11/13/2024 11:17 AM CDT Phoned the patient to schedule injection procedure with dr. Colon. Patient stated he was not ready to schedule and will call in February. documented in this encounter Plan of Treatment Upcoming Encounters Date Type Department Care Team (Late st Contact Info) Description 12/11/2024 2:10 PM CDT Therapy Visit [address] [phone] Shanta Cooper, PT 12/14/2024 11:20 AM CDT Office Visit [facility] [id number] [place] [phone] Lizet Mann PA-C [id number] [place] [address] 12/17/2024 2:10 PM CDT Office Visit [facility] Orthopedic [address] 4th [place] [phone] Richard Kam MD [address] [place] [address] 12/19/2024 8:20 AM CDT Therapy Visit [address] [phone] Shanta Cooper, PT 12/24/2024 5:00 PM CDT Therapy Visit [address] [phone] Pattie Casillas, PT 12/25/2024 10:20 AM CDT Therapy Visit [address] [phone] Shanta Cooper, PT 01/03/2025 1:00 PM CDT Office Visit [address] [phone] MoEstella Beth, [facility] [address] [place] [address] 01/03/2025 1:30 PM CDT Office Visit [facility] [address] [place] [phone] [place] [address] [place] [address] 01/08/2025 1:15 PM CDT Office Visit [facility] 2945 [facility] 200 [place] [phone] Hakeem Chacko MBBS [address]45 [place] [address] Scheduled Procedures Name Priority Associated Diagnoses Date/Ti [...] by household income. 2. I will contact [employer] Line to ask about medicare plans and if there are saving programs I qualify for by by calling [phone]. 3. I will see if I am eligible for unemployment after losing my job. I will call [phone] to ask for assistance with unemployment application. 4. I will apply for jobs. I will work with [employer] in finding a job ([employer]ower[employer].) 5. I will access [employer] and ask about financial resources (such as getting gas card.) Improve management of mental health symptoms and establish with mental health/psychosocia l supports Care Plan Mental Health Symptoms Need Improvement 70%( 10:47 AM CDT) Mitra Borja, BIODIESEL PRODUCT MANAGER Note: Updated on 08/30/24 Barriers: I struggle with having anxiety.My children won;t talk with me due to my mental health concerns Strengths: I am accessing support that is available to me. Patient expressed understanding of goal: Yes Action steps to achieve this goal: 1. I will continue working with therapist at [place] [facility]. 2. I will establish with Psychiatry. Planning to schedule with Ronnie. 3. I will meet with [facility] workers compensation adjuster Manjula Gresham. 4. I will look in to attending an IOP program. I will discuss with my [place] mental Health therapist and number provided for [facility] Behavioral Access - [phone] to schedule assessment fr IOP program. 5. I will go to [facility] if I have concerning mental health symptoms. 6. I will access [facility] Crisis if needed by calling [phone]. 7. I will consider calling [facility] Adult Mental health intake at [phone]. documented as of this encounter Visit Diagnoses [...] [employer]. 3. I will update [facility] Team at outreach. Health Maintenance Due or Overdue 12/16/2023 Patient expresses financial resource strain 12/13 Mental Health Symptoms Need Improvement 04/05/19 25 Assessment Noted Time PHQ-9 Depression Total Score: 18 025 2:39 PM CDT documented as of this encounter Care Teams Overseamer Relationship Specialty [place] [address] [place] [address] PCP - General Family Practice 07/11/14 [place] [address] [place] [address] Assigned PCP 12/16/11 Christy Campuzano PA-C [address] [place] [address] 299562 Referring Physician Family Medicine 04/22/20 Hans Cannon MD [address] [place] [address] Resident Pulmonary Disease 04/22/20 [facility] 3033 [place], [place] 116856 Pharmacist Pharmacist 05/26/20 Elaina Moreno MD [address] [place] [address] Cardiovascular & Thoracic Surgery 08/06/20 John Webb MD [address] 459265 Cardiovascular Disease 08/25/21 John Webb MD [address] 635775 Cardiovascular Disease 08/25/21 Estella Hassan, [facility] [address] [place], [place] [address]126 Assigned MTM Pharmacist 12/09/21 Lindsay Carey OD [address] [facility] [address] Ophthalmology 01/29/22 Richard Kam MD 500 [place], [place] 884315 Assigned Musculoskeletal Provider 08/14/22 [place] [address] [place] [address] [address]15107 Assigned Neuroscience Provider 01/01/23 12/03/24 Rosemarie Mcdowell, RN Protector Plate Attacher Diabetes Education 03/17/23 Mitra Kendall, BIODIESEL PRODUCT MANAGER Lead Budget Report Clerk Primary Care - CC 12/12/23 Lizet Mann PA-C [address] [place] [address] Assigned Cancer Care Provider 01/04/24 Ravi Brownlee MD [address] [place] [address] 032925 Assigned Pulmonology Provider 01/04/24 Manuel Ahn OD [address] [facility] [place] 287122 Band Saw Filer 01/05/24 Thalia Charles [facility] [address] [place], [place] [phone] Pharmacist Pharmacy 01/26/24 Gaurav Valenzuela APRN RESOURCE RECOVERY ENGINEER 606 [facility] [address] [place] [address] Assigned Sleep Provider 02/04/24 Debbie Mann MD 1600 [facility] 200 [place], [place] [phone] Cardiovascular Disease 02/24/24 Hakeem Chacko MBBS 2945 [place] [address] Assigned Rheumatology Provider 04/05/24 Debbie Mann MD 1600 [facility] 200 [place], [place] [phone] Assigned Heart and Vascular Provider 05/06/24 Timothy Tejada MD [address] [place] [phone] Ophthalmology 05/29/24 Timothy Tejada MD [address] [place] [address] Assigned Surgical Provider 06/03/24 Elsie Roberts APRN RESOURCE RECOVERY ENGINEER 1600 [facility] 101 [place] [address] Nurse Practitioner Pain Medicine 10/16/24 Cristy Morton MD [address] [place] [address] Assigned Pediatric Specialist Provider 11/03/24 documented as of this encounter
--- OUTSIDE RECORDS SUMMARY | 2024-12-06 00:40 | XMS_ITS | Encounter Summary ---
Author Organization [place] Address [address] [place] [address] Care Team Providers Care Harbor Pilot Name Role Phone Va Glez MD Primary Care Provider Va Glez MD Unavailable Christy CampuzanoC Unavailable [phone] Hans Cannon MD Unavailable Estella Hassan [facility] Unavailable Josh Cordero MD, Madhuri Unavailable [phone] John Webb MD Unavailable John Webb MD Unavailable Estella Hassan [facility] Unavailable Lindsay Carey OD Unavailable Richard Kam MD Unavailable Gaby Vila DO Unavailable Rosemarie Mcdowell RN Unavailable [phone] Mitra Kendall SENIOR WEB ENGINEER Unavailable [phone] Lizet Mann PA-C Unavailable Ravi Brownlee MD Unavailable Manuel Ahn OD Unavailable Thalia Charles [facility] Unavailable [phone] Nicolas Gaurav Bell COP EXAMINER FISHING ROD ASSEMBLER Unavailable [phone] Debbie Mann MD Unavailable [phone] Hakeem Chacko MB Unavailable Debbie Mann MD Unavailable [phone] Timothy Tejada MD Unavailable [phone] Timothy Tejada MD Unavailable [phone] Elsie Roberts COP EXAMINER FISHING ROD ASSEMBLER Unavailable + Cirsty Morton MD Unavailable [phone] Georgie Anguiano PA-C Unavailable [phone] Encounter Details Date Type Department Care Team (Late st Contact Info) Description 11/14/2024 MyC Medical Advice [facility] [address] [place] [address] Erin Bell, RN Social History Tobacco Use Types Packs/Day [...] re latives? Once a week 09/27/2024 Attends Religion Services Not on file 09/27 Active Member [...] 6 11/01/2024 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 Gender Identity Not on file Sexual Orientation Not on file Occupation Industry Job Start Date Job End Date Not on file Not on file Not on file Not on file documented as of this encounter Plan of Treatment Upcoming Encounters Date Type Department Care Team (Late st Contact Info) Description 12/11/2024 2:10 PM CDT Therapy Visit [place] [address] [place] [address] Shanta Cooper, PT 12/14/2024 11:20 AM CDT Office Visit [facility] [id number] [place] [address] [place] [address] Lizet Mann PA-C [address] [place] [address] 12/17/2024 2:10 PM CDT Office Visit [facility] Orthopedic [address] [place] [phone] Richard Kam MD [address] [place] [address] 12/19/2024 8:20 AM CDT Therapy Visit [place] [address] [place] [address] Shanta Cooper, PT 12/24/2024 5:00 PM CDT Therapy Visit [place] [address] [place] [phone] Pattie Casillas, PT 12/25/2024 10:20 AM CDT Therapy Visit [place] [address] [place] [phone] Shanta Cooper, MOIZ 01/03/2025 1:00 PM CDT Office Visit [facility] [address] [place] [phone] Estella Hassan, [facility] 3033 [place] [address] 01/03/2025 1:30 PM CDT Office Visit [facility] [address] [place] [phone] [place] [address] [place], [place] [phone] 01/08/2025 1:15 PM CDT Office Visit [facility] 2945 [facility] 200 [place] [phone] Hakeem Chacko MBBS 2945 [place] [address] Scheduled Procedures Name Priority Associated Diagnoses Date/Ti [...] job and will access resources that the [employer] offers. . Sarted new job 4. Continue [...] by household income. 2. I will contact [facility] Line to ask about medicare plans and if there are saving programs I qualify for by by calling [phone]. 3. I will see if I am eligible for unemployment after losing my job. I will call [phone] to ask for assistance with unemployment application. 4. I will apply for jobs. I will work with [facility] in finding a job (Empowerment.) 5. I will access [employer] and ask about financial resources (such as [...] Ronnie. 3. I will meet with community workers compensation consultant Manjula Gresham. 4. I will look in to attending an IOP program. I will discuss with my [place] mental Health therapist and number provided for [facility] Behavioral Access - [phone] to schedule assessment fr IOP program. 5. I will go to [facility] if I have concerning mental health symptoms. 6. I will access [facility] Crisis if needed by calling [phone]. 7. I will consider calling [facility] Adult Mental health intake at [phone]. documented as of this encounter Visit Diagnoses [...] and submit it to the [facility]. 3. I will update [facility] Team at outreach. Health Maintenance Due or Overdue 12/16/2023 Patient expresses financial resource strain 12/13 Mental Health Symptoms Need Improvement 04/05/19 25 Assessment Noted Time PHQ-9 Depression Total Score: 18 025 2:39 PM CDT documented as of this encounter Care Teams Harbor Pilot Relationship Specialty [place] [address] [place] [address] PCP - General Family Practice 07/11/14 [place] [address] [place] [address] Assigned PCP 12/16/11 Christy Campuzano PA-C [address] [place] [address] 534492 Referring Physician Family Medicine 04/22/20 Hans Cannon MD [address] [place] [address] 661192 Resident Pulmonary Disease 04/22/20 Estella Hassan, [facility] [address] [place], [place] [address] Pharmacist Pharmacist 05/26/20 Elaina Moreno MD 909 [place], [place] 17[address] Cardiovascular & Thoracic Surgery 08/06/20 John Webb MD [address] [address] Cardiovascular Disease 08/25/21 John Webb MD [address] [place] 98[address] Cardiovascular Disease 08/25/21 Estella Hassan, [facility] [address] [place] [address] Assigned MTM Pharmacist 12/09/21 Lindsay Carey OD [address] [facility] [place] [address] Ophthalmology 01/29/22 Richard Kam MD 500 [place], [place] 0875[address] Assigned Musculoskeletal Provider 08/14/22 [place] [address] [place], [address] 254477 Assigned Neuroscience Provider 01/01/23 12/03/24 Rosemarie Mcdowell, RN Inspector Wire Rope Diabetes Education 03/17/23 Mitra Kendall, SENIOR WEB ENGINEER Lead Equipment Operator Warehouse Primary Care - CC 12/12/23 Lizet Mann PA-C [address] [facility] [place] [address] Assigned Cancer Care Provider 01/04/24 Ravi Brownlee MD [address] [place] [address] 414965 Assigned Pulmonology Provider 01/04/24 Manuel Ahn OD 6341 [place] [address] Agricultural Production Engineer 01/05/24 Thalia Charles [facility] [address] [place], [place] [phone] Pharmacist Pharmacy 01/26/24 Gaurav Valenzuela APRN FISHING ROD ASSEMBLER 606 [facility] [address] [place], [place] [address] Assigned Sleep Provider 02/04/24 Debbie Mann MD 1600 [facility] 200 [place], [place] [phone] Cardiovascular Disease 02/24/24 Hakeem Chacko MBBS [address]45 [place] [address] Assigned Rheumatology Provider 04/05/24 Debbie Mann MD 1600 [facility] 200 [place] [address] Assigned Heart and Vascular Provider 05/06/24 Timothy Tejada MD 6341 [place] [phone] Ophthalmology 05/29/24 Timothy Tejada MD [address] [place] [phone] Assigned Surgical Provider 06/03/24 Elsie Roberts APRN FISHING ROD ASSEMBLER 1600 [facility] [address] [address] Nurse Practitioner Pain Medicine 10/16/24 Cristy Morton MD 1440 [facility] [address] [place] [address] Assigned Pediatric Specialist Provider 11/03/24 Georgie Anguiano PA-C [address] [address] Assigned Neuroscience Provider 12/04/24 documented as of this encounter
--- OUTSIDE RECORDS SUMMARY | 2024-12-06 00:40 | XMS_ITS | Encounter Summary ---
Author Organization [facility] Address [address] [place] [address] Care Team Providers Care Application Systems Architect Name Role Phone Va Glez MD Primary Care Provider Va Glez MD Unavailable Christy CampuzanoC Unavailable [phone] Hans Cannon MD Unavailable Estella Hassan [facility] Unavailable Josh Cordero MD, Madhuri Unavailable [phone] John Webb MD Unavailable John Webb MD Unavailable [phone] Estella Hassan [facility] Unavailable Lindsay Carey OD Unavailable Richard Kam MD Unavailable Gaby Vila DO Unavailable [phone] Rosemarie Mcdowell RN Unavailable Mitra Kendall AEROSPACE MEDICINE PHYSICIAN Unavailable [phone] Lizet Mann PA-C Unavailable Ravi Brownlee MD Unavailable Manuel Ahn OD Unavailable Thalia Charles [facility] Unavailable [phone] Gaurav Valenzuela BUTTONER DRAFTING LAYOUT MAN Unavailable [phone] Debbie Mann MD Unavailable [phone] Hakeem Chacko MB Unavailable Debbie Mann MD Unavailable [phone] Timothy Tejada MD Unavailable [phone] Timothy Tejada MD Unavailable [phone] Elsie Roberts BUTTONER DRAFTING LAYOUT MAN Unavailable + Cristy Morton MD Unavailable [phone] Georgie Anguiano PA-C Unavailable [phone] Encounter Details Date Type Department Care Team (Late st Contact Info) Description 11/16/2024 Results Follow-Up [facility] [address] [place] [phone] Whitney Hood PA-C [address] [place] [address] Subj: Message about your results [...] Answer Date Recorded PHQ-2 Score 6 11/01/2024 [facility] of Occupat ional [facility] - Occupational Stress Questionnaire Answer Date Recorded [...] on file 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 Gender Identity Not on file Sexual Orientation Not on file Occupation Industry Job Start Date Job End Date Not on file Not on file Not on file Not on file documented as of this encounter Plan of Treatment Upcoming Encounters Date Type Department Care Team (Late st Contact Info) Description 12/11/2024 2:10 PM CDT Therapy Visit [place] [address] [place] [phone] Shanta Cooper, PT 12/14/2024 11:20 AM CDT Office Visit [facility] [address] [place] [address] [place] [address] Lizet Mann PA-C [address] [place] [address] 12/17/2024 2:10 PM CDT Office Visit [facility] [address] [place] [address] Richard Kam MD [address] [place] [address] 12/19/2024 8:20 AM CDT Therapy Visit [place] [address] [place] [phone] Shanta Cooper, PT 12/24/2024 5:00 PM CDT Therapy Visit [place] [address] [place] [phone] Pattie Casillas, PT 12/25/2024 10:20 AM CDT Therapy Visit [facility] [place] [address] 290 [place] [address] Shanta Cooper, MOIZ 01/03/2025 1:00 PM CDT Office Visit [facility] [address] [place] [phone] Estella Hassan, [facility] 3033 [place] [address] 01/03/2025 1:30 PM CDT Office Visit [facility] [address] [place] [phone] [place] [address] [place], [place] [phone] 01/08/2025 1:15 PM CDT Office Visit [facility] 2945 [facility] 200 [place] [address] Hakeem Chacko MBBS 2945 [place], [place] [phone] Scheduled Procedures Name Priority Associated Diagnoses Date/Ti me INJECTION, EPIDURAL, TRANSFO RAMINAL APPROACH Cervical radiculitis RELEASE, CARPAL TUNNEL, ENDOSCOPIC Right carpal tunnel syndrome documented as of this encounter Goals Goal Patient Goal Type Associated Problems Recent Progress Patient-Stated? Author Health Maintenance Care Plan HP GENERAL PROBLEM 100%(10/29/19 10:17 AM CDT) No Mitra Kendall, AEROSPACE MEDICINE PHYSICIAN Note: Update on 05/25/22 Barriers: Currently without [...] for health insurance by looking in to [employer] and talking with a FRW. Completed 3. I will look for a new job and will access resources that the [employer] offers. . Sarted new job 4. Continue [...] programs I qualify for by by calling [phone]. 3. I will see if I am eligible for unemployment after losing my job. I will call [phone] to ask for assistance with unemployment application. 4. I will apply for jobs. I will work with [employer] in finding a job (Empowerment.) 5. I will access [employer] and ask about financial resources (such as [...] Ronnie. 3. I will meet with community laceworker Manjula Gresham. 4. I will look in to attending an IOP program. I will discuss with my [place] mental Health therapist and number provided for [facility] Behavioral Access - [phone] to schedule assessment fr IOP program. 5. I will go to [facility] if I have concerning mental health symptoms. 6. I will access [facility] Crisis if needed by calling [phone]. 7. I will consider calling [facility] Adult Mental health intake at [phone]. documented as of this encounter Visit Diagnoses [...] documented as of this encounter Care Teams Application Systems Architect Relationship Specialty [place] [address] [place] [address] PCP - General Family Practice 07/11/14 [place] [address] [place] [address] Assigned PCP 12/16/11 Christy Campuzano PA-C [address] [place] [address] [phone] Referring Physician Family Medicine 04/22/20 Hans Cannon MD [address] [place] [address] 167772 Resident Pulmonary Disease 04/22/20 Estella Hassan, [facility] [address] [place], [place] 6[address] Pharmacist Pharmacist 05/26/20 Elaina Moreno MD 909 [place] [address] Cardiovascular & Thoracic Surgery 08/06/20 [place] [address] [place], [place] [address]Celestino [place] [address] Cardiovascular Disease 08/25/21 John Webb MD [address] [place] [address] Cardiovascular Disease 08/25/21 [facility] 3033 [place] [address] Assigned MTM Pharmacist 12/09/21 Lindsay Carey OD [address] [facility] [place] [address] Ophthalmology 01/29/22 Richard Kam MD [address] [place] [address] Assigned Musculoskeletal Provider 08/14/22 [place] [address] [address] Assigned Neuroscience Provider 01/01/23 12/03/24 Rosemarie Mcdowell RN Internet Marketing Executive Diabetes Education 03/17/23 Mitra Kendall, AEROSPACE MEDICINE PHYSICIAN Lead Rotary Drier Feeder Primary Care - CC 12/12/23 Lizet Mann PA-C [address] [place] [address] Assigned Cancer Care Provider 01/04/24 Ravi Brownlee MD [address] [place] [address] [place] [address] Assigned Pulmonology Provider 01/04/24 Manuel Ahn OD 6341 [place] [address] Senior Financial Reporting Accountant 01/05/24 Thalia Charles [facility] [address] [place], [place] [phone] Pharmacist Pharmacy 01/26/24 Gaurav Valenzuela APRN DRAFTING LAYOUT MAN 606 [facility] 106 [place] [address] Assigned Sleep Provider 02/04/24 Debbie Mann MD 1600 [facility] 200 [place], [place] [phone] Cardiovascular Disease 02/24/24 Hakeem Chacko MBBS 2945 [place] [address] Assigned Rheumatology Provider 04/05/24 Debbie Mann MD 1600 [facility] 200 [place] [address] Assigned Heart and Vascular Provider 05/06/24 Timothy Tejada MD 6341 [facility] [place] [phone] Ophthalmology 05/29/24 Timothy Tejada MD 6341 [facility] [phone] Assigned Surgical Provider 06/03/24 Elsie Roberts APRN DRAFTING LAYOUT MAN 1600 [facility] 101 [place] [address] Nurse Practitioner Pain Medicine 10/16/24 Cristy Morton MD [facility]0 [facility] [place]O [id number] Assigned Pediatric Specialist Provider 11/03/24 Georgie Anguiano PA-C 6545 [place] 215735 Assigned Neuroscience Provider 12/04/24 documented as of this encounter
--- OUTSIDE RECORDS SUMMARY | 2024-12-06 00:40 | XMS_ITS | Encounter Summary ---
Author Organization [facility] Address [address] [place] [address] Care Team Providers Care Borderer Name Role Phone Va Glez MD Primary Care Provider Va Glez MD Unavailable Christy CampuzanoC Unavailable [phone] Hans Cannon MD Unavailable Estella Hassna [facility] Unavailable Josh Cordero MD, Madhuri Unavailable [phone] John Webb MD Unavailable John Webb MD Unavailable [phone] Estella Hassan [facility] Unavailable Lindsay Carey OD Unavailable Richard Kam MD Unavailable Gaby Vila DO Unavailable Rosemarie Mcdowell RN Unavailable Mitra Kendall HYPERION ADMINISTRATOR Unavailable [phone] Lizet Mann PA-C Unavailable Ravi Brownlee MD Unavailable Manuel Ahn OD Unavailable Thalia Charles [facility] Unavailable [phone] Gaurav Valenzuela BAG PRESS OPERATOR SHALLOT CLEANER Unavailable [phone] Debbie Mann MD Unavailable [phone] Hakeem Chacko [facility] Unavailable Debbie Mann MD Unavailable [phone] Timothy Tejada MD Unavailable [phone] Timothy Tejada MD Unavailable [phone] Elsie Roberts BAG PRESS OPERATOR SHALLOT CLEANER Unavailable + Cristy Morton MD Unavailable [phone] Encounter Details Date Type Department Care Team (Latest Contact Info) Description 11/15/2024 Travel Social History Tobacco Use Types Packs/Day [...] Answer Date Recorded PHQ-2 Score 6 11/01/2024 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 [place] [address] Lizet Mann PA-C [address] [address] [place] [place] [address] 12/17/2024 2:10 PM CDT Office Visit [facility] Orthopedic [address] 4th [place] [phone] Richard Kam MD [address] [place] [address] 12/19/2024 8:20 AM CDT Therapy Visit [address] [address] Shanta Cooper, PT 12/24/2024 5:00 PM CDT Therapy Visit [place] [address] [place] [address] Pattie Casillas, PT 12/25/2024 10:20 AM CDT Therapy Visit [place] [address] [place] [phone] Shanta Cooper, PT 01/03/2025 1:00 PM CDT Office Visit [address] [phone] Estella Hassan, [facility] 3033 [place] [address] 01/03/2025 1:30 PM CDT Office Visit [facility] [address] [place] [address] [place] [address] [place] [address] 01/08/2025 1:15 PM CDT Office Visit [facility] 2945 [facility] 200 [place] [address] Hakeem Chacko MBBS 2945 [place] [address] Scheduled Procedures Name Priority Associated Diagnoses Date/Ti [...] strain 100%(10/29/19 10:17 AM CDT) No Mitra Kenadll LSW Note: Updated on 05/25/22 Barriers: Currently [...] job and will access resources that the [employer] center offers. . Sarted new job 4. [...] by household income. 2. I will contact [employer] to ask about medicare plans and if there are saving programs I qualify for by by calling [phone]. 3. I will see if I am eligible for unemployment after losing my job. I will call [phone] to ask for assistance with unemployment application. 4. I will apply for jobs. I will work with [employer] in finding a job (Empowerment.) 5. I will access [employer] and ask about financial resources (such as [...] meet with [facility] restuarant crew worker Manjula Gresham. 4. I will look in to attending an IOP program. I will discuss with my [place] mental Health therapist and number provided for [facility] Behavioral Access - [phone] to schedule assessment fr IOP program. 5. I will go to [facility] if I have concerning mental health symptoms. 6. I will access [facility] Crisis if needed by calling [phone]. 7. I will consider calling [facility] Adult Mental health intake at [phone]. documented as of this encounter Visit Diagnoses [...] [facility]. 3. I will update [facility] Team at outreach. Health Maintenance Due or Overdue 12/16/2023 Patient expresses financial resource strain 12/13 Mental Health Symptoms Need Improvement 04/05/19 25 Assessment Noted Time PHQ-9 Depression Total Score: 18 025 2:39 PM CDT documented as of this encounter Care Teams Borderer Relationship Specialty [place] [address] [place], [place] [phone] PCP - General Family Practice 07/11/14 [place] [address] [place], [place] 02373124 Assigned PCP 12/16/11 Christy Campuzano PA-C [address] [place] [address] [id number] Referring Physician Family Medicine 04/22/20 Hans Cannon MD [address] [place] [address] 662882 Resident Pulmonary Disease 04/22/20 [facility] [address], [place] [phone] Pharmacist Pharmacist 05/26/20 Elaina Moreno MD 909 [place], [place] 276665 Cardiovascular & Thoracic Surgery 08/06/20 John Webb MD 6405 [place] 346295 Cardiovascular Disease 08/25/21 John Webb MD 6[address] [place] 892175 Cardiovascular Disease 08/25/21 Estella Hassan, [facility] [address] [place] [address] Assigned MTM Pharmacist 12/09/21 Lindsay Carey OD [address] [facility] [place] [address] Ophthalmology 01/29/22 Richard Kam MD [address] [place] [address] Assigned Musculoskeletal Provider 08/14/22 [place] [address] [place]UDY , [address] [address] Assigned Neuroscience Provider 01/01/23 12/03/24 Rosemarie Mcdowell, RN Animal Treatment Investigator Diabetes Education 03/17/23 Mitra Kendall, HYPERION ADMINISTRATOR Lead Oven Tender Primary Care - CC 12/12/23 Lizet Mann PA-C [address] [place] [address] Assigned Cancer Care Provider 01/04/24 Ravi Brownlee MD [address] [place] [address] 276 [place], [place] 478365 Assigned Pulmonology Provider 01/04/24 Manuel Ahn, ARA 6341 [facility] [place] [address] Gmat Tutor 01/05/24 Thalia Charles [facility] [address] [place], [place] [phone] Pharmacist Pharmacy 01/26/24 Gaurav Valenzuela APRN SHALLOT CLEANER [address] [facility] [place] 106 [place] [address] Assigned Sleep Provider 02/04/24 Debbie Mann MD 1600 [facility] 200 [place], [place] [phone] Cardiovascular Disease 02/24/24 Hakeem Chacko MBBS [address]45 [place] [address] Assigned Rheumatology Provider 04/05/24 Debbie Mann MD 1600 [facility] 200 [place] [address] Assigned Heart and Vascular Provider 05/06/24 Timothy Tejada MD 6341 [place] [phone] Ophthalmology 05/29/24 Timothy Tejada MD 6341 [place] [address] Assigned Surgical Provider 06/03/24 Elsie Roberts APRN SHALLOT CLEANER 1600 [facility] 101 [place] [address] Nurse Practitioner Pain Medicine 10/16/24 Cirsty Morton MD [address] [place], [place] [address] Assigned Pediatric Specialist Provider 11/03/24 documented as of this encounter
--- OUTSIDE RECORDS SUMMARY | 2024-12-06 00:41 | XMS_ITS | Encounter Summary ---
Author Organization [facility] Address [address] [place] [address] Care Team Providers Care Computer Security Manager Name Role Phone Va Glez MD Primary Care Provider Va Glez MD Unavailable Christy Campuzano PA-C Unavailable Hans Cannon MD Unavailable Estella Hassan [facility] Unavailable Josh Cordero MD, Elaina Unavailable [phone] John Webb MD Unavailable John Webb MD Unavailable Estella Hassan [facility] Unavailable Lindsay Carey OD Unavailable [phone] Richard Kam MD Unavailable Rosemarie Mcdowell RN Unavailable [phone] Mitra Kendall APPRENTICE EMBALMER Unavailable Lizet Mann PA-C Unavailable Ravi Brownlee MD Unavailable [phone] Manuel Ahn OD Unavailable Thalia Charles [facility] Unavailable Gaurav Valenzuela SWIMMING POOL SERVICE TECHNICIAN APPAREL STOCK CHECKER Unavailable [phone] Dbebie Mann MD Unavailable [phone] Hakeem Chacko Unavailable Debbie Mann MD Unavailable [phone] Timothy Tejada MD Unavailable [phone] Timothy Tejada MD Unavailable [phone] Elsie Roberts SWIMMING POOL SERVICE TECHNICIAN APPAREL STOCK CHECKER Unavailable + Cristy Morton MD Unavailable [phone] Georgie Anguiano PA-C Unavailable [phone] Encounter Details Date Type Department Care Team (Latest Contact Info) Description 12/05/2024 Travel Social History Tobacco Use Types Packs/Day [...] Answer Date Recorded PHQ-2 Score 6 11/01/2024 [facility] of Occupat ional Health - Occupational Stress [...] on file 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 Gender Identity Not on file Sexual Orientation Not on file Occupation Industry Job Start Date Job End Date Not on file Not on file Not on file Not on file documented as of this encounter Plan of Treatment Upcoming Encounters Date Type Department Care Team (Late st Contact Info) Description 12/11/2024 2:10 PM CDT Therapy Visit [place] [address] [place] [address] Shanta Cooper, PT 12/14/2024 11:20 AM CDT Office Visit [facility] [address] [facility] [place] [address] Lizet Mann PA-C [address] [address] [place] [address] 12/17/2024 2:10 PM CDT Office Visit [facility] Orthopedic [address] 4th [place] [phone] Richard Kam MD [address] [place] [address] 12/19/2024 8:20 AM CDT Therapy Visit [address] [address] Shanta Cooper, PT 12/24/2024 5:00 PM CDT Therapy Visit [place] [address] [place] [address] Pattie Casillas, PT 12/25/2024 10:20 AM CDT Therapy Visit [place] [address] [place] [phone] Shanta Cooper, PT 01/03/2025 1:00 PM CDT Office Visit [address] [phone] Estella Hassan, [facility] 30[address] [place] [address] 01/03/2025 1:30 PM CDT Office Visit [facility] [address] [place] [address] [place] [address] [place] [address] 01/08/2025 1:15 PM CDT Office Visit [facility] 2945 [facility] 200 [place] [address] Hakeem Chacko MBBS 2945 [place] [address] Scheduled Procedures Name Priority Associated Diagnoses Date/Ti [...] job and will access resources that the [employer] center offers. . Sarted new job 4. [...] by household income. 2. I will contact [employer] to ask about medicare plans and if there are saving programs I qualify for by by calling [phone]. 3. I will see if I am eligible for unemployment after losing my job. I will call [phone] to ask for assistance with unemployment application. 4. I will apply for jobs. I will work with [employer] in finding a job (Empowerment.) 5. I will access [employer] and ask about financial resources (such as [...] I will continue working with therapist at [facility]. 2. I will establish with Psychiatry. Planning to schedule with Ronnie. 3. I will meet with [facility] long term care social worker Manjula Gresham. 4. I will look in to attending an IOP program. I will discuss with my [place] mental [facility] therapist and number provided for [facility] Behavioral Access - [phone] to schedule assessment fr IOP program. 5. I will go to [facility] if I have concerning mental health symptoms. 6. I will access [facility] Crisis if needed by calling [phone]. 7. I will consider calling [facility] Adult Mental health intake at [phone]. documented as of this encounter Visit Diagnoses [...] [facility]. 3. I will update [facility] Team at outreach. Health Maintenance Due or Overdue 12/16/2023 Patient expresses financial resource strain 12/13 Mental Health Symptoms Need Improvement 04/05/19 25 Assessment Noted Time PHQ-9 Depression Total Score: 18 025 2:39 PM CDT documented as of this encounter Care Teams Computer Security Manager Relationship Specialty [place] [address] [place], [place] [phone] PCP - General Family Practice 07/11/14 [place] [address] [place], [place] 28535[address] Assigned PCP 12/16/11 Christy Campuzano PA-C [address] [place] [address] [phone] Referring Physician Family Medicine 04/22/20 Hans Cannon MD [address] [place] [address] 069482 Resident Pulmonary Disease 04/22/20 [facility] [address] [place], [place] [phone] Pharmacist Pharmacist 05/26/20 Elaina Moreno MD 909 [place], [place] 131295 Cardiovascular & Thoracic Surgery 08/06/20 John Webb MD 6[address] [place] 185725 Cardiovascular Disease 08/25/21 John Webb MD 6[address] [place] 080855 Cardiovascular Disease 08/25/21 Estella Hassan, [facility] [address] [place] [address] Assigned MTM Pharmacist 12/09/21 Lindsay Carey, OD [address] [facility] [address] Ophthalmology 01/29/22 Richard Kam MD [address] [place] [address] Assigned Musculoskeletal Provider 08/14/22 Rosemarie Mcdowell RN Airways Operations Specialist Diabetes Education 03/17/23 Mitra Kendall, APPRENTICE EMBALMER Lead Copra Processor Primary Care - CC 12/12/23 Lizet Mann PA-C [address] [place] [address] Assigned Cancer Care Provider 01/04/24 Ravi Brownlee MD [address] [place] [address] 084215 Assigned Pulmonology Provider 01/04/24 Manuel Ahn, OD 6341 [place] [address] Laborer Cutting Tool 01/05/24 Thalia Charles, [facility] [address] [place] [address] Pharmacist Pharmacy 01/26/24 Gaurav Valenzuela APRN APPAREL STOCK CHECKER 606 [facility] 106 [place] [address] Assigned Sleep Provider 02/04/24 Debbie Mann MD 1600 [facility] 200 [place] [address] Cardiovascular Disease 02/24/24 Hakeem Chacko MBBS 2945 [place] [address] Assigned Rheumatology Provider 04/05/24 Debbie Mann MD 1600 [facility] 200 [place] [address] Assigned Heart and Vascular Provider 05/06/24 Timothy Tejada MD 6341 [place] [address] Ophthalmology 05/29/24 Timothy Tejada MD 6341 [place] [address] Assigned Surgical Provider 06/03/24 Elsie Roberts APRN APPAREL STOCK CHECKER 1600 [facility] 101 [place] [address] Nurse Practitioner Pain Medicine 10/16/24 Cristy Morton MD [address] [place] [address] [place] [address] Assigned Pediatric Specialist Provider 11/03/24 Georgie Anguiano PA-C [address] [place] [address] Assigned Neuroscience Provider 12/04/24 documented as of this encounter
--- OUTSIDE RECORDS SUMMARY | 2024-12-06 00:41 | XMS_ITS | Encounter Summary ---
Author Organization [facility] Address [address] [place] [address] Care Team Providers Care Algologist Name Role Phone Va Glez MD Primary Care Provider Va Glez MD Unavailable Christy CampuzanoC Unavailable [phone] Hans Cannon MD Unavailable Estella Hassan [facility] Unavailable Josh Cordero MD, Madhuri Unavailable [phone] John Webb MD Unavailable John Webb MD Unavailable Estella Hassan [facility] Unavailable [phone] Lindsay Carey OD Unavailable Richard Kam MD Unavailable Gaby Vila DO Unavailable [phone] Rosemarie Mcdowell RN Unavailable [phone] Mitra Kendall PIPE STRESS ENGINEER Unavailable [phone] Lizet Mann PA-C Unavailable Ravi Brownlee MD Unavailable Manuel Ahn OD Unavailable [phone] Thalia Charles [facility] Unavailable [phone] Gaurav Valenzuela EXCHANGE CONSULTANT TODDLER TEACHER Unavailable [phone] Debbie Mann MD Unavailable [phone] Hakeem Chacko [facility] Unavailable Debbie Mann MD Unavailable [phone] Timothy Tejada MD Unavailable [phone] Timothy Tejada MD Unavailable [phone] Elsie Roberts EXCHANGE CONSULTANT TODDLER TEACHER Unavailable + Cristy Morton MD Unavailable [phone] Encounter Details Date Type Department Care Team (Latest Contact Info) Description 12/03/2024 Travel Social History Tobacco Use Types Packs/Day [...] Answer Date Recorded PHQ-2 Score 6 11/01/2024 [facility] - Occupational Stress [...] on file 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 Gender Identity Not on file Sexual Orientation Not on file Occupation Industry Job Start Date Job End Date Not on file Not on file Not on file Not on file documented as of this encounter Plan of Treatment Upcoming Encounters Date Type Department Care Team (Late st Contact Info) Description 12/11/2024 2:10 PM CDT Therapy Visit [place] [address] [place] [address] Shanta Cooper, PT 12/14/2024 11:20 AM CDT Office Visit [facility] [address] [place] [address] Lizet Mann PA-C [address] [address] [place] [place] [address] 12/17/2024 2:10 PM CDT Office Visit [facility] Orthopedic [address] 4th [place] [phone] Richard Kam MD [address] [place] [address] 12/19/2024 8:20 AM CDT Therapy Visit [address] [address] Shanta Cooper, PT 12/24/2024 5:00 PM CDT Therapy Visit [place] [address] [place] [address] Pattie Casillas, PT 12/25/2024 10:20 AM CDT Therapy Visit [place] [address] [place] [phone] Shanta Cooper, PT 01/03/2025 1:00 PM CDT Office Visit [address] [phone] Estella Hassan, [facility] [address] [place] [address] 01/03/2025 1:30 PM CDT Office Visit [facility] [address] [place] [address] [place] [address] [place] [address] 01/08/2025 1:15 PM CDT Office Visit [facility] 2945 [facility] 200 [place] [address] Hakeem Chacko MBBS 2945 [place] [address] Scheduled Procedures Name Priority Associated Diagnoses Date/Ti [...] job and will access resources that the [employer] center offers. . Sarted new job 4. [...] by household income. 2. I will contact [employer] Line to ask about medicare plans and if there are saving programs I qualify for by by calling [phone]. 3. I will see if I am eligible for unemployment after losing my job. I will call [phone] to ask for assistance with unemployment application. 4. I will apply for jobs. I will work with [employer] in finding a job ([employer]ower[employer].) 5. I will access [employer] and ask about financial resources (such as [...] I will continue working with therapist at [facility]. 2. I will establish with Psychiatry. Planning to schedule with Ronnie. 3. I will meet with [facility] social worker Manjula Gresham. 4. I will look in to attending an IOP program. I will discuss with my [place] [facility] therapist and number provided for [facility] Behavioral Access - [phone] to schedule assessment fr IOP program. 5. I will go to [facility] if I have concerning mental health symptoms. 6. I will access [facility] Crisis if needed by calling [phone]. 7. I will consider calling [facility] Adult Mental health intake at [phone]. documented as of this encounter Visit Diagnoses [...] [facility]. 3. I will update [facility] Team at outreach. Health Maintenance Due or Overdue 12/16/2023 Patient expresses financial resource strain 12/13 Mental Health Symptoms Need Improvement 04/05/19 25 Assessment Noted Time PHQ-9 Depression Total Score: 18 025 2:39 PM CDT documented as of this encounter Care Teams Algologist Relationship Specialty [place] [address] [place], [place] [phone] PCP - General Family Practice 07/11/14 [place] [address] [place], [place] [phone] Assigned PCP 12/16/11 Christy Campuzano PA-C [address] [place] [address] [phone] Referring Physician Family Medicine 04/22/20 Hans Cannon MD [address] [place] [address] 217592 Resident Pulmonary Disease 04/22/[address] [facility] [address] [place], [place] [phone] Pharmacist Pharmacist 05/26/20 Elaina Moreno MD 909 [place], [place] 8897[address] Cardiovascular & Thoracic Surgery 08/06/20 John Webb MD [address] [place] [place] 020875 Cardiovascular Disease 08/25/21 John Webb MD [address] 982635 Cardiovascular Disease 08/25/21 Estella Hassan, [facility] [address] [place] [address] Assigned MTM Pharmacist 12/09/21 Lindsay Carey OD [address] [place] [address] Ophthalmology 01/29/22 Richard Kam MD [address] [place] [address] Assigned Musculoskeletal Provider 08/14/22 [place] [address] [place] , [address] [address] Assigned Neuroscience Provider 01/01/23 12/03/24 Rosemarie Mcdowell, RN Micropaleontologist Diabetes Education 03/17/23 Mitra Kendall, PIPE STRESS ENGINEER Lead Link Trainer Teacher Primary Care - CC 12/12/23 Lizet Mann PA-C [address] [place] [address] Assigned Cancer Care Provider 01/04/24 Ravi Brownlee MD [address] [place] [address] 276 [place], [place] [address] Assigned Pulmonology Provider 01/04/24 Manuel Ahn, ARA [address] [facility] [place] [address] Table Cover Folder 01/05/24 Thalia Charles [facility] [address] [place], [place] [phone] Pharmacist Pharmacy 01/26/24 Gaurav Valenzuela APRN TODDLER TEACHER [address] [facility] 106 [place] [address] Assigned Sleep Provider 02/04/24 Debbie Mann MD [address] [facility] 200 [place], [place] [phone] Cardiovascular Disease 02/24/24 Hakeem Chacko MBBS 2945 [place] [address] Assigned Rheumatology Provider 04/05/24 Debbie Mann MD [address] [facility] 200 [place] [address] Assigned Heart and Vascular Provider 05/06/24 Timothy Tejada MD 6341 [place] [phone] Ophthalmology 05/29/24 Timothy Tejada MD [address] [place] [address] Assigned Surgical Provider 06/03/24 Elsie Roberts APRN TODDLER TEACHER [address] [facility] 101 [place] [address] Nurse Practitioner Pain Medicine 10/16/24 Cristy Morton MD [address] [place], [place] [address] Assigned Pediatric Specialist Provider 11/03/24 documented as of this encounter
--- OUTSIDE RECORDS SUMMARY | 2024-12-06 00:41 | XMS_ITS | Encounter Summary ---
Author Organization [facility] Address [address] [place] [address] Care Team Providers Care Quartz Miner Blasting Name Role Phone Va Glez MD Primary Care Provider Va Glez MD Unavailable Christy CampuzanoC Unavailable [phone] Hans Cannon MD Unavailable Estella Hassan [facility] Unavailable Josh Cordero MD, Madhuri Unavailable [phone] John Webb MD Unavailable John Webb MD Unavailable [phone] Estella Hassan [facility] Unavailable [phone] Lindsay Carey OD Unavailable [phone] Richard Kam MD Unavailable Gaby Vila DO Unavailable Rosemarie Mcdowell RN Unavailable Mitra Kendall RUBBER PRODUCTION MACHINE OPERATOR Unavailable [phone] Lizet Mann PA-C Unavailable [phone] aRvi Brownlee MD Unavailable [phone] Manuel Ahn OD Unavailable Thalia Charles [facility] Unavailable [phone] Gaurav Valenzuela GUIDE DOG MOBILITY INSTRUCTOR RASPBERRY CHECKER Unavailable [phone] Debbie Mann MD Unavailable [phone] RosendonormaHakeem burhc MB Unavailable Debbie Mann MD Unavailable [phone] Timothy Tejada MD Unavailable [phone] Timothy Tejada MD Unavailable [phone] Elsie Roberts GUIDE DOG MOBILITY INSTRUCTOR RASPBERRY CHECKER Unavailable + Cristy Morton MD Unavailable [phone] Reason for Referral * Rehab Therapy Physical Therapy (Routine: Next available opening) - Pending Review Specialty Diagnoses / Procedures Referred By Mireille gnozalez Referred To Contact Physical Therapy Diagnoses Right arm numbness [address] [address] Phone: tel: Referral ID Status Reason Start Date Expiration Date V isits Requested Visits Authorized [id number] Pending Review 12/03/2024 03/13/2025 10 10 Question Answer Course of Action: Evaluation and Treatment Specialty Services: Per Associated Diagnosis Patient Scheduling Instructions: [facility] will call you to coordinate your care as prescribed by your provider. If you don't hear from a financial foundations representative within 2 business days, please call . Comments Please be aware that coverage of these services is subject to the terms and limitations of your health insurance plan. Call member services at your health plan with any benefit or coverage questions. [facility] will call you to coordinate your care as prescribed by your provider. If you don't hear from a financial foundations representative within 2 business days, please call . 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 Gresham who reports patient will need to complete 4 weeks of conservative therapyas recommended. PT ordered, MyChart sent to patient with update. From: Soo Dominguez Sent: 11/21/2024 11:23 AM CDT To: Trent Gresham MD; Cassandra Minor RN Subject: Central RICARDO Additional Information Request Central RICARDO Additional Information Request Patient Name: Peter Devi : 1960 We appear to be missing the information below which is required to submit with the prior authorization for procedure Selective Nerve Root Block C5/6 Right on 12/04/2024. Missing Information 4 weeks of Conservative Therapy - Consists of an appropriate combination of medication (for example, non-steroidal anti-inflammatory [NSAIDs], analgesics, etc.) in addition to physical therapy, spinal manipulation therapy, cognitive behavioral therapy (CBT), home exercise program, or other interventions based on the individual's specific presentation, physical findings, and imaging results. Or a documented reason the patient cannot complete conservative care. If we simply have not seen the information we are requesting, please let us know so we can educate ourselves. If we do not receive the identified information, we will not be able to submit the prior authorization. We may contact the patient if we do not receive a response. Thank you, Soo DOMINGUEZ [place] Prior Authorization * Cassandra Minor RN - 11/21/2024 11:25 AM CDT Patient has not yet read MyC. Called patient to discuss, no answer and VM full. Will try again on Tuesday. * Cassandra Minor RN - 11/21/2024 11:25 AM CDT Called patient to discuss. Spoke with patient who is upset with this as he states he had his ride planned and was counting on this to help with his symptoms. Reviewed OTC pain medications PRN in the interim. Patient has not completed PT specifically for his arm/neck symptoms, he has been doing PT for BLE pain. He asks what his other options are. This has already been reviewed with Dr. Gresham who reportshe needs to complete PT as recommended. Provided PT scheduling number for patient and recommended he call to schedule. Also recommended he reschedule injection to allow time to complete PT and then submit for authorization again. Patient was advised to update our team after completing PT. Patient inquired what the cost for the injection would be if he paid out of pocket, provided [facility] [employer] services number. * Cassandra Minor RN - 11/21/2024 11:25 AM CDT From: Soo Dominguez Sent: 12/03/2024 8:44 AM CDT To: Cassandra Minor RN; Jens Colon IV, MD* Subject: Central PA Additional Information Request Asif - the cost of care estimate was sent to the patient, I haven't been able to connect with him via phone - cannot leave a voicemail. Patient is on the schedule for tomorrow without an authorization. Please advise. Thank you Called patient again- Attempted to reach out to patient, no answer. Left voice message for them to call clinic back to further discuss. * Cassandra Minor RN - 11/21/2024 11:25 AM CDT Called patient again to discuss. He is not sure what he wants to do. He does not want to cancel theinjection, but he did cancel his ride already. He would like to further discuss the options of self pay, high priority message sent back to authorization team requesting they contact patient again to discuss this option. documented in this encounter Plan of Treatment Upcoming Encounters Date Type Department Care Team (Late st Contact Info) Description 12/11/2024 2:10 PM CDT Therapy Visit [facility] Rehabilitation Services [address] [place] [address] Shanta Cooper, MOIZ 12/14/2024 11:20 AM CDT Office Visit [address] [place] [phone] Lizet Mann PA-C [address] [place] [address] 12/17/2024 2:10 PM CDT Office Visit [facility] Orthopedic [facility] [address] [facility] 4th [place] [phone] Richard Kam MD [address] [place] [address] 12/19/2024 8:20 AM CDT Therapy Visit [address] [address] Shanta Cooper, PT 12/24/2024 5:00 PM CDT Therapy Visit [address] [phone] Pattie Casillas, PT 12/25/2024 10:20 AM CDT Therapy Visit [address] [address] Shanta Cooper, PT 01/03/2025 1:00 PM CDT Office Visit [address] [phone] Estella Hassan, [facility] 3033 [place] [address] 01/03/2025 1:30 PM CDT Office Visit [address] [phone] [place] [address] [place] [id number] 01/08/2025 1:15 PM CDT Office Visit [facility] [address] [facility] [address] [place] [address] Hakeem Chacko MBBS [address] [place] [address] Scheduled Procedures Name Priority Associated Diagnoses Date/Ti me INJECTION, EPIDURAL, TRANSFO RAMINAL APPROACH Cervical radiculitis RELEASE, CARPAL TUNNEL, ENDOSCOPIC Right carpal tunnel syndrome Scheduled Referrals Name Type Priority Associated Diagnoses Orde r Schedule Physical Therapy Pressure Washer Referral Referral Routine: Next available opening Right arm numbness Expected: 11/21/2024 (Approximate), Expires: 11/21/2025 documented as of this encounter Goals Goal [...] for health insurance by looking in to [employer] and talking with a FRW. Completed 3. [...] by household income. 2. I will contact [employer] Line to ask about medicare plans and if there are saving programs I qualify for by by calling [phone]. 3. I will see if I am eligible for unemployment after losing my job. I will call [phone] to ask for assistance with unemployment application. 4. I will apply for jobs. I will work with [employer] in finding a job ([employer]ower[employer].) 5. I will access [employer] and ask about financial resources (such as [...] Ronnie. 3. I will meet with community beater worker helper Manjula Gresham. 4. I will look in to attending an IOP program. I will discuss with my [place] [facility] therapist and number provided for [facility] Behavioral Access - [phone] to schedule assessment fr IOP program. 5. I will go to [facility] if I have concerning mental health symptoms. 6. I will access [facility] if needed by calling [phone]. 7. I will consider calling [facility] Adult Mental health intake at [phone]. documented as of this encounter Visit Diagnoses [...] accurate information and submit it to the [facility]. 3. I will update [facility] Team at outreach. Health Maintenance Due or Overdue 12/16/2023 Patient expresses financial resource strain 12/13 Mental Health Symptoms Need Improvement 04/05/19 25 Assessment Noted Time PHQ-9 Depression Total Score: 18 025 2:39 PM CDT documented as of this encounter Care Teams Quartz Miner Blasting Relationship Specialty [place] [address] [place] [address] PCP - General Family Practice 07/11/14 [place] [address] [place] [address] Assigned PCP 12/16/11 Christy Campuzano PA-C [address] [place] [address]26622 Referring Physician Family Medicine 04/22/20 Hans Cannon MD [address] [place] [address] Resident Pulmonary Disease 04/22/20 Estella Hassan, [facility] [address] [place] [address] Pharmacist Pharmacist 05/26/20 Elaina Morneo MD [address] [place] [address] Cardiovascular & Thoracic Surgery 08/06/20 John Webb MD [address] [place] 67[address] Cardiovascular Disease 08/25/21 John Webb MD [address] [place] 887025 Cardiovascular Disease 08/25/21 Estella Hassan, [facility] [address] [place] [address] 826946 Assigned MTM Pharmacist 12/09/21 [place] [address] [place] [address] [place] [address] Ophthalmology 01/29/22 Richard Kam MD [address] [place] [address] 344845 Assigned Musculoskeletal Provider 08/14/22 [place] [address] [facility] [address] [place], [place] [address] Assigned Neuroscience Provider 01/01/23 12/03/24 Rosemarie Mcdowell, RN Neon Tube Pumper Diabetes Education 03/17/23 Mitra Kendall, RUBBER PRODUCTION MACHINE OPERATOR Lead Quill Reamer Primary Care - CC 12/12/23 Lizet Mann PA-C [address] [place] [address] Assigned Cancer Care Provider 01/04/24 Ravi Brownlee MD [address] [place] [address] 276 [place], [place] [address] Assigned Pulmonology Provider 01/04/24 Manuel Ahn OD 6341 [place] [address] Medical Officer Psychiatry 01/05/24 Thalia Charles, [facility] [address] [place], [place] [phone] Pharmacist Pharmacy 01/26/24 Gaurav Valenzuela APRN RASPBERRY CHECKER [address] [facility] 106 [place], [place] [address] Assigned Sleep Provider 02/04/24 Debbie Mann MD 1600 [facility] 200 [place], [place] [phone] Cardiovascular Disease 02/24/24 Hakeem Chacko MBBS [address] [place], [place] [phone] Assigned Rheumatology Provider 04/05/24 Debbie Mann MD 1600 [facility] 200 [place] [address] Assigned Heart and Vascular Provider 05/06/24 Timothy Tejada MD [address] [facility] [place] [address] Ophthalmology 05/29/24 Timothy Tejada MD [address] [place] [address] Assigned Surgical Provider 06/03/24 Elsie Roberts APRN RASPBERRY CHECKER 1600 [facility] 101 [place], [place] [phone] Nurse Practitioner Pain Medicine 10/16/24 Cristy Morton MD [address] [place] [address] [place]ANK[place] ROMO [address] Assigned Pediatric Specialist Provider 11/03/24 documented as of this encounter
--- OUTSIDE RECORDS SUMMARY | 2024-12-06 00:41 | XMS_ITS | Encounter Summary ---
Author Organization [facility] Address [address] [place] [address] Care Team Providers Care Manager Energy Name Role Phone Va Glez MD Primary Care Provider Va Glez MD Unavailable Christy CampuzanoC Unavailable [phone] Hans Cannon MD Unavailable [phone] Estella Hassan [facility] Unavailable [phone] Josh Cordero MD, Madhuri Unavailable [phone] John Webb MD Unavailable John Webb MD Unavailable [phone] Estella Hassan [facility] Unavailable [phone] Lindsay Carey OD Unavailable [phone] Richard Kam MD Unavailable Gaby Vila DO Unavailable Rosemarie Mcdowell RN Unavailable [phone] Mitra Kendall UNIT REACTOR OPERATOR Unavailable [phone] Lizet Mann PA-C Unavailable Ravi Brownlee MD Unavailable [phone] Manuel Ahn OD Unavailable Thalia Charles [facility] Unavailable [phone] Nicolas Gaurav Bell LINEN TECH ENLISTED AIRCREW/AERIAL OBSERVER/GUNNER Unavailable [phone] Debbie Mann MD Unavailable +[phone] Hakeem Chacko MB Unavailable Debbie Mann MD Unavailable [phone] Timothy Tejada MD Unavailable [phone] Timothy Tejada MD Unavailable [phone] Elsie Roberts LINEN TECH ENLISTED AIRCREW/AERIAL OBSERVER/GUNNER Unavailable + Cristy Morton MD Unavailable [phone] Georgie Anguiano PA-C Unavailable [phone] Encounter Details Date Type Department Care Team (Late st Contact Info) Description 11/30/[address] [address] [place] Glez MD [id number] [place] [address] Social History Tobacco Use Types Packs/Day [...] Answer Date Recorded PHQ-2 Score 6 11/01/2024 [facility] Health - Occupational Stress Questionnaire [...] on file 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 Gender Identity Not on file Sexual Orientation Not on file Occupation Industry Job Start Date Job End Date Not on file Not on file Not on file Not on file documented as of this encounter Plan of Treatment Upcoming Encounters Date Type Department Care Team (Late st Contact Info) Description 12/11/2024 2:10 PM CDT Therapy Visit [place] [address] [place] [phone] Shanta Cooper, PT 12/14/2024 11:20 AM CDT Office Visit [facility] [address] [place] [address] Lizet Mann PA-C [id number] [place] [address] 12/17/2024 2:10 PM CDT Office Visit [facility] Orthopedic [address] 4th [place] [phone] Richard Kam MD [address] [place] [address] 12/19/2024 8:20 AM CDT Therapy [place] [address] [place] [phone] Shanta Cooper, PT 12/24/2024 5:00 PM CDT Therapy [place] [address] [place] [address] Pattie Casillas, PT 12/25/2024 10:20 AM CDT Therapy Visit [address] [place] [address] Shanta Cooper, MOIZ 01/03/2025 1:00 PM CDT Office Visit [facility] [address] [place] [address] Estella Hassan, [facility] [address] [place] [address] 01/03/2025 1:30 PM CDT Office Visit [facility] [address] [place] [phone] [place] [address] [place], [place] [phone] 01/08/2025 1:15 PM CDT Office Visit [facility] 2945 [facility] 200 [place] [address] Hakeem Chacko MBBS 2945 [place] [address] Scheduled Procedures Name Priority Associated Diagnoses Date/Ti me INJECTION, EPIDURAL, TRANSFO RAMINAL APPROACH Cervical radiculitis RELEASE, CARPAL TUNNEL, ENDOSCOPIC Right carpal tunnel syndrome documented as of this encounter Goals Goal Patient Goal Type Associated Problems Recent Progress Patient-Stated? Author Health Maintenance Care Plan HP GENERAL PROBLEM 100%(10/29/19 10:17 AM CDT) No Mitra Kendall, UNIT REACTOR OPERATOR Note: Update on 05/25/22 Barriers: Currently [...] for health insurance by looking in to [employer] and talking with a FRW. Completed 3. I will look for a new job and will access resources that the [employer] offers. . Sarted new job 4. Continue [...] programs I qualify for by by calling [phone]. 3. I will see if I am eligible for unemployment after losing my job. I will call [phone] to ask for assistance with unemployment application. 4. I will apply for jobs. I will work with [employer] in finding a job (Empowerment.) 5. I will access [facility] and ask about financial resources (such as [...] Ronnie. 3. I will meet with community trailhead maintenance worker Manjula Gresham. 4. I will look in to attending an IOP program. I will discuss with my [place] [facility] therapist and number provided for [facility] Behavioral Access - [phone] to schedule assessment fr IOP program. 5. I will go to [facility] if I have concerning mental health symptoms. 6. I will access [facility] Crisis if needed by calling [phone]. 7. I will consider calling [facility] Adult Mental health intake at [phone]. documented as of this encounter Visit Diagnoses [...] as of this encounter Care Teams Manager Energy Relationship Specialty [place] [address] [place] [address] PCP - General Family Practice 07/11/14 [place] [address] [place] [address] Assigned PCP 12/16/11 Christy Campuzano PA-C [address] [place] [address] 917182 Referring Physician Family Medicine 04/22/20 Hans Cannon MD [address] [place] [address] 995842 Resident Pulmonary Disease 04/22/20 Estella Hassan, [facility] [address] [facility] [place] [place] [address] Pharmacist Pharmacist 05/26/20 Elaina Moreno MD 909 [place], [place] 509265 Cardiovascular & Thoracic Surgery 08/06/20 John Webb MD [address] 613555 Cardiovascular Disease 08/25/21 John Webb MD [address] [place] 265895 Cardiovascular Disease 08/25/21 Estella Hassan, [facility] [address] [place] [address] Assigned MTM Pharmacist 12/09/21 [place] [address] [place] [address] [place] [phone] Ophthalmology 01/29/22 Richard Kam MD [address] [place] [address] 197595 Assigned Musculoskeletal Provider 08/14/22 [place] [address] 556137 Assigned Neuroscience Provider 01/01/23 12/03/24 Rosemarie Mcdowell, RN Kerfer Machine Operator Diabetes Education 03/17/23 Mitra Kendall, UNIT REACTOR OPERATOR Lead Nursery Attendant Primary Care - CC 12/12/23 Lizet Mann PA-C [address] [facility] [place] [address] Assigned Cancer Care Provider 01/04/24 Ravi Brownlee MD [address] [place] [address] Assigned Pulmonology Provider 01/04/24 Manuel Ahn OD 6341 [place] [address] Network Support Technician 01/05/24 Thalia Charles [facility] [address] [place], [place] [phone] Pharmacist Pharmacy 01/26/24 Gaurav Valenzuela APRN ENLISTED AIRCREW/AERIAL OBSERVER/GUNNER 606 [facility] 106 [place] [address] Assigned Sleep Provider 02/04/24 Debbie Mann MD 1600 [facility] 200 [place], [place] [phone] Cardiovascular Disease 02/24/24 Hakeem Chacko MBBS 2945 [place], [place] [phone] Assigned Rheumatology Provider 04/05/24 Debbie Mann MD 1600 [facility] 200 [place], [place] [phone] Assigned Heart and Vascular Provider 05/06/24 Timothy Tejada MD 6341 [place] [address] Ophthalmology 05/29/24 Timothy Tejada MD 6341 [place] [address] Assigned Surgical Provider 06/03/24 Elsie Roberts APRN ENLISTED AIRCREW/AERIAL OBSERVER/GUNNER 1600 [facility] [place] 101 [place] [address] Nurse Practitioner Pain Medicine 10/16/24 Cristy Morton MD [address] [facility] [place] [id number] Assigned Pediatric Specialist Provider 11/03/24 Georgie Anguiano PA-C [address] 726095 Assigned Neuroscience Provider 12/04/24 documented as of this encounter
--- OUTSIDE RECORDS SUMMARY | 2024-12-06 00:41 | XMS_ITS | Encounter Summary ---
Author Organization [facility] Address [address] [place] [address] Care Team Providers Care Manager Home Name Role Phone Va Glez MD Primary Care Provider [phone] Va Glez MD Unavailable Christy CampuzanoC Unavailable [phone] Hans Cannon MD Unavailable Estella Hassan [facility] Unavailable Josh Cordero MD, Madhuri Unavailable [phone] John Webb MD Unavailable [phone] John Webb MD Unavailable [phone] Estella Hassan [facility] Unavailable Lindsay Carey OD Unavailable Richard Kam MD Unavailable Gaby Vila DO Unavailable [phone] Rosemarie Mcdowell RN Unavailable Mitra Kendall HIDE SHAKER Unavailable [phone] Lizet Mann PA-C Unavailable Ravi Brownlee MD Unavailable Manuel Ahn OD Unavailable [phone] Thalia Charles [facility] Unavailable [phone] Nicolas Gaurav Bell BREAD SUPERVISOR BUNG SEWER Unavailable [phone] Debbie Mann MD Unavailable [phone] Hakeem Chacko MB Unavailable Debbie Mann MD Unavailable [phone] Timothy Tejada MD Unavailable [phone] Timothy Tejada MD Unavailable [phone] Elsie Roberts BREAD SUPERVISOR BUNG SEWER Unavailable + Cristy Morton MD Unavailable [phone] Georgie Anguiano PA-C Unavailable [phone] Encounter Details Date Type Department Care Team (Late st Contact Info) Description 11/21/2024 MyC Medical Advice [facility] Neurology [address], [address] [place] [address] Cassandra Minor, RN Social History [...] re latives? 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 Gender Identity Not on file Sexual Orientation Not on file Occupation Industry Job Start Date Job End Date Not on file Not on file Not on file Not on file documented as of this encounter Plan of Treatment Upcoming Encounters Date Type Department Care Team (Late st Contact Info) Description 12/11/2024 2:10 PM CDT Therapy Visit [place] [address] [place] [address] Shanta Cooper, PT 12/14/2024 11:20 AM CDT Office Visit [facility] [address] [place] [address] Lizet Mann PA-C [address] [place] [address] 12/17/2024 2:10 PM CDT Office Visit [facility] Orthopedic [address] 4th [place] [address] Richard Kam MD [address] [place] [address] 12/19/2024 8:20 AM CDT Therapy Visit [place] [address] [place] [address] Shanta Cooper, PT 12/24/2024 5:00 PM CDT Therapy Visit [place] [address] [place] [address] Pattie Casillas, PT 12/25/2024 10:20 AM CDT Therapy Visit [place] [address] [place] [phone] Shanta Cooper, PT 01/03/2025 1:00 PM CDT Office Visit [facility] [address] [place] [phone] Estella Hassan, [facility] 3033 [place] [address] 01/03/2025 1:30 PM CDT Office Visit [facility] [address] [place] [phone] [place] [address] [place], [place] [address] 01/08/2025 1:15 PM CDT Office Visit [facility] 2945 [facility] 200 [place] [phone] Hakeem Chacko MBBS 2945 [place] [address] Scheduled Procedures Name Priority Associated Diagnoses Date/Ti me INJECTION, EPIDURAL, TRANSFO RAMINAL APPROACH Cervical radiculitis RELEASE, CARPAL TUNNEL, ENDOSCOPIC Right carpal tunnel syndrome documented as of this encounter Goals Goal Patient Goal Type Associated Problems Recent Progress Patient-Stated? Author Health Maintenance Care Plan HP GENERAL PROBLEM 100%(10/29/19 10:17 AM CDT) No Mitra Kendall, HIDE SHAKER Note: Update on 05/25/22 Barriers: Currently without [...] job and will access resources that the [employer] offers. . Sarted new job 4. [...] by household income. 2. I will contact [employer] [facility] to ask about medicare plans and if there are saving programs I qualify for by by calling [phone]. 3. I will see if I am eligible for unemployment after losing my job. I will call [phone] to ask for assistance with unemployment application. 4. I will apply for jobs. I will work with [employer] in finding a job (Empowerment.) 5. I will access [employer] and ask about financial resources (such as [...] I will continue working with therapist at [facility]. 2. I will establish with Psychiatry. Planning to schedule with Ronnie. 3. I will meet with [facility] lime kiln worker helper Manjula Gresham. 4. I will look in to attending an IOP program. I will discuss with my [place] [facility] therapist and number provided for [facility] Behavioral Access - [phone] to schedule assessment fr IOP program. 5. I will go to [facility] if I have concerning mental health symptoms. 6. I will access [facility] Crisis if needed by calling [phone]. 7. I will consider calling [facility] Adult Mental health intake at [phone]. documented as of this encounter Visit Diagnoses [...] as of this encounter Care Teams Manager Home Relationship Specialty [place] [address] [place] [address] PCP - General Family Practice 07/11/14 [place] [address] [place] [address] Assigned PCP 12/16/11 Christy Campuzano PA-C [address] [place] [address] [phone] Referring Physician Family Medicine 04/22/20 Hans Cannon MD [address] [place] [address] 081952 Resident Pulmonary Disease 04/22/20 Estella Hassan, [facility] [address] [place], [place] [address] Pharmacist Pharmacist 05/26/20 Elaina Moreno MD 909 [place], [place] 402715 Cardiovascular & Thoracic Surgery 08/06/20 John Webb MD [address] [address] Cardiovascular Disease 08/25/21 John Webb MD [address] [place] [address]25 Cardiovascular Disease 08/25/21 Estella Hassan, [facility] [address] [place] [address] Assigned MTM Pharmacist 12/09/21 Lindsay Carey OD [address] [facility] [place] [address] Ophthalmology 01/29/22 Richard Kam MD [address] [place] [address] 721705 Assigned Musculoskeletal Provider 08/14/22 [place] [address] [place] PE[place], [address] [address] Assigned Neuroscience Provider 01/01/23 12/03/24 Rosemarie Mcdowell, RN Fuse Spooler Diabetes Education 03/17/23 Mitra Kendall, HIDE SHAKER Lead Picker Tender Helper Primary Care - CC 12/12/23 Lizet Mann PA-C [address] [facility] [place] [place] [address] Assigned Cancer Care Provider 01/04/24 Raiv Brownlee MD [address] [place] [address] 081925 Assigned Pulmonology Provider 01/04/24 Manuel Ahn OD 6341 [place] [address] Body Shop Mechanic 01/05/24 Thalia Charles [place] [address] [place], [place] [phone] Pharmacist Pharmacy 01/26/24 Gaurav Valenzuela APRN BUNG SEWER 606 [facility] [place] 106 [place], [place] 251154 Assigned Sleep Provider 02/04/24 Debbie Mann MD 1600 [facility] 200 [place], [place] [phone] Cardiovascular Disease 02/24/24 Hakeem Chacko MBBS 2945 [place] [address] Assigned Rheumatology Provider 04/05/24 Debbie Mann MD 1600 [facility] 200 [place] [address] Assigned Heart and Vascular Provider 05/06/24 Timothy Tejada MD 6341 [place] [phone] Ophthalmology 05/29/24 Timothy Tejada MD 6341 [place] [address] Assigned Surgical Provider 06/03/24 Elsie Roberts APRN BUNG SEWER 1600 [facility] [place] 101 [place] [address] Nurse Practitioner Pain Medicine 10/16/24 Cristy Morton MD 1440 [facility] [place] [address] Assigned Pediatric Specialist Provider 11/03/24 Georgie Anguiano PA-C [address] [address] Assigned Neuroscience Provider 12/04/24 documented as of this encounter
--- OUTSIDE RECORDS SUMMARY | 2024-12-06 00:41 | XMS_ITS | Encounter Summary ---
Author Organization [facility] Address [address] [place] [address] Care Team Providers Care Clay Plant Treater Name Role Phone Va Glez MD Primary Care Provider Va Glez MD Unavailable Christy CampuzanoC Unavailable [phone] Hans Cannon MD Unavailable [phone] Estella Hassan [facility] Unavailable Josh Cordero MD, Madhuri Unavailable [phone] John Webb MD Unavailable John Webb MD Unavailable [phone] Estella Hassan [facility] Unavailable Lindsay Carey OD Unavailable Richard Kam MD Unavailable Gaby Vila DO Unavailable Rosemarie Mcdowell RN Unavailable [phone] Mitra Kendall INSURANCE SALES ASSISTANT Unavailable [phone] Lizet Mann PA-C Unavailable Ravi Brownlee MD Unavailable Manuel Ahn OD Unavailable Thalia Charles [facility] Unavailable [phone] Gaurav Valenzuela RISK MODELER HEAD ESTHETICIAN Unavailable [phone] Debbie Mann MD Unavailable [phone] Hakeem Chacko [facility] Unavailable Debbie Mann MD Unavailable [phone] Timothy Tejada MD Unavailable [phone] Timothy Tejada MD Unavailable [phone] Elsie Roberts RISK MODELER HEAD ESTHETICIAN Unavailable + Cristy Morton MD Unavailable [phone] Encounter Details Date Type Department Care Team (Latest Contact Info) Description 11/18/2024 Travel Social History Tobacco Use Types Packs/Day [...] Answer Date Recorded PHQ-2 Score 6 11/01/2024 [facility] [place] of Occupat ional Health - Occupational Stress [...] in an overnight chcf, 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.) Yes 11/05/2024 Are you worried [...] on file 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 [address] [facility] [place] [address] Lizet Mann PA-C [address] [facility] [place] [address] 12/17/2024 2:10 PM CDT Office Visit [facility] Orthopedic [address] 4th [place] [phone] Richard Kam MD [address] [place] [address] 12/19/2024 8:20 AM CDT Therapy Visit [address] [address] Shanta Cooper, PT 12/24/2024 5:00 PM CDT Therapy Visit [place] [address] [place] [address] Pattie Casillas, PT 12/25/2024 10:20 AM CDT Therapy Visit [place] [address] [place] [address] Shanta Cooper, PT 01/03/2025 1:00 PM CDT Office Visit [address] [phone] Estella Hassan, [facility] 3033 [place] [address] 01/03/2025 1:30 PM CDT Office Visit [facility] [address] [place] [address] [place] [address] [place] [address] 01/08/2025 1:15 PM CDT Office Visit [facility] [address] [facility] 200 [place] [address] Hakeem Chacko MBBS 2945 [place] [address] Scheduled Procedures Name Priority Associated Diagnoses Date/Ti [...] job and will access resources that the [employer] offers. . Sarted new job 4. [...] by household income. 2. I will contact [employer] to ask about medicare plans and if there are saving programs I qualify for by by calling [phone]. 3. I will see if I am eligible for unemployment after losing my job. I will call [phone] to ask for assistance with unemployment application. 4. I will apply for jobs. I will work with [employer] in finding a job (Empowerment.) 5. I will access [employer] and ask about financial resources (such as [...] continue working with therapist at [facility]. 2. I will establish with Psychiatry. Planning to schedule with Ronnie. 3. I will meet with [facility] court worker Manjula Gresham. 4. I will look in to attending an IOP program. I will discuss with my [place] [facility] therapist and number provided for [facility] Behavioral Access - [phone] to schedule assessment fr IOP program. 5. I will go to [facility] if I have concerning mental health symptoms. 6. I will access [facility] Crisis if needed by calling [phone]. 7. I will consider calling [facility] Adult Mental health intake at [phone]. documented as of this encounter Visit Diagnoses [...] accurate information and submit it to the [facility]. 3. I will update [facility] Team at outreach. Health Maintenance Due or Overdue 12/16/2023 Patient expresses financial resource strain 12/13 Mental Health Symptoms Need Improvement 04/05/19 25 Assessment Noted Time PHQ-9 Depression Total Score: 18 025 2:39 PM CDT documented as of this encounter Care Teams Clay Plant Treater Relationship Specialty [place] [address] [place], [place] [phone] PCP - General Family Practice 07/11/14 [place] [address] [place], [place] 80874[address] Assigned PCP 12/16/11 Christy Campuzano PA-C [address] [place] [address] [phone] Referring Physician Family Medicine 04/22/20 Hans Cannon MD [address] [place] [address] 147042 Resident Pulmonary Disease 04/22/20 [facility] [address] [place], [place] [phone] Pharmacist Pharmacist 05/26/20 Elaina Moreno MD 909 [place], [place] 405265 Cardiovascular & Thoracic Surgery 08/06/20 John Webb MD [address] 707915 Cardiovascular Disease 08/25/21 John Webb MD [address] [place] 178895 Cardiovascular Disease 08/25/21 Estella Hassan, [facility] [address] [place] [address] Assigned MTM Pharmacist 12/09/21 Lindsay Carey OD [address] [facility] [place] [address] Ophthalmology 01/29/22 Richard Kam MD [address] [place] [address] Assigned Musculoskeletal Provider 08/14/22 [place] [address] [place] , [address] [address] Assigned Neuroscience Provider 01/01/23 12/03/24 Rosemarie Mcdowell, RN Supervisor Cemetery Workers Diabetes Education 03/17/23 Mitra Kendall, INSURANCE SALES ASSISTANT Lead Leather Polisher Primary Care - CC 12/12/23 Lizet Mann PA-C [address] [place] [address] Assigned Cancer Care Provider 01/04/24 Ravi Brownlee MD [address] [place] [address] 276 [place], [place] 915095 Assigned Pulmonology Provider 01/04/24 Manuel Ahn, ARA 6341 [place] [address] Hand Tool Filer 01/05/24 Thalia Charles [facility] [address] [place], [place] [phone] Pharmacist Pharmacy 01/26/24 Gaurav Valenzuela APRN HEAD ESTHETICIAN [address] [facility] [address] 106 [place] [address] Assigned Sleep Provider 02/04/24 Debbie Mann MD 1600 [facility] 200 [place], [place] [phone] Cardiovascular Disease 02/24/24 Hakeem Chacko MBBS 2945 [place] [address] Assigned Rheumatology Provider 04/05/24 Debbie Mann MD 1600 [facility] 200 [place] [address] Assigned Heart and Vascular Provider 05/06/24 Timothy Tejada MD 6341 [place] [phone] Ophthalmology 05/29/24 Timothy Tejada MD 6341 [place] [address] Assigned Surgical Provider 06/03/24 Elsie Roberts APRN HEAD ESTHETICIAN 1600 [facility] 101 [place] [address] Nurse Practitioner Pain Medicine 10/16/24 Cristy Morton MD [address] [place], [place] [address] Assigned Pediatric Specialist Provider 11/03/24 documented as of this encounter
--- OUTSIDE RECORDS SUMMARY | 2024-12-06 00:42 | XMS_ITS | Encounter Summary ---
Author Organization [place] [facility] Address [address] [place] [address] Care Team Providers Care Beauty Operator Apprentice Name Role Phone Va Glez MD Primary Care Provider [phone] Va Glez MD Unavailable Christy CampuzanoC Unavailable [phone] Hans Cannon MD Unavailable Estella Hassan [facility] Unavailable [phone] Josh Cordero MD, Madhuri Unavailable [phone] John Webb MD Unavailable [phone] John Webb MD Unavailable [phone] Estella Hassan [facility] Unavailable [phone] Lindsay Carey OD Unavailable Richard Kam MD Unavailable Gaby Vila DO Unavailable Rosemarie Mcdowell RN Unavailable Mitra Kendall CRAWLER TRACTOR OPERATOR Unavailable [phone] Lizet Mann PA-C Unavailable Ravi Brownlee MD Unavailable Manuel Ahn OD Unavailable Thalia Charles [facility] Unavailable [phone] NicolasGaurav Ray HAT SIZER ASSOCIATE AUTOMATION ENGINEER Unavailable [phone] Debbie Mann MD Unavailable [phone] Hakeem Chacko MB Unavailable Debbie Mann MD Unavailable [phone] Timothy Tejada MD Unavailable [phone] Timothy Tejada MD Unavailable [phone] Elsie Roberts HAT SIZER ASSOCIATE AUTOMATION ENGINEER Unavailable + Cristy Morton MD Unavailable [phone] Georgie Anguiano PA-C Unavailable [phone] Encounter Details Date Type Department Care Team (Late st Contact Info) Description 06/27/2024 MyC Medical Advice [facility] [address] [place] [phone] Claribel Mauricio, RN Social History Tobacco [...] re latives? 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 Gender Identity Not on file Sexual Orientation Not on file Occupation Industry Job Start Date Job End Date Not on file Not on file Not on file Not on file documented as of this encounter Plan of Treatment Upcoming Encounters Date Type Department Care Team (Late st Contact Info) Description 12/11/2024 2:10 PM CDT Therapy Visit [place] [address] [address] Shanta Cooper, PT 12/14/2024 11:20 AM CDT Office Visit [address] [phone] Lizet Mann PA-C [address] [place] [address] 12/17/2024 2:10 PM CDT Office Visit [facility] [address] [place] [phone] Richard Kam MD [address] [place] [address] 12/19/2024 8:20 AM CDT Therapy Visit [place] [address] [address] [phone] Shanta Cooper, PT 12/24/2024 5:00 PM CDT Therapy Visit [address] [place] [phone] Pattie Casillas, PT 12/25/2024 10:20 AM CDT Therapy Visit [place] [address] [address] [address] Shanta Cooper, PT 01/03/2025 1:00 PM CDT Office Visit [facility] [address] [place] [phone] Estella Hassan, [facility] [address] [place] [address] 01/03/2025 1:30 PM CDT Office Visit [facility] [address] [place] [phone] [place] [address] [place], [place] [phone] 01/08/2025 1:15 PM CDT Office Visit [facility] [address] [facility] [address] [place] [phone] Hakeem Chacko MBBS [address] [place] [address] Scheduled Procedures Name Priority Associated Diagnoses Date/Ti [...] job and will access resources that the [employer] offers. . Sarted new job 4. Continue [...] by household income. 2. I will contact [employer] [facility] to ask about medicare plans and if there are saving programs I qualify for by by calling [phone]. 3. I will see if I am eligible for unemployment after losing my job. I will call [phone] to ask for assistance with unemployment application. 4. I will apply for jobs. I will work with [employer] in finding a job (Empowerment.) 5. I will access [employer] and ask about financial resources (such as [...] with Ronnie. 3. I will meet with [facility] group home worker Manjula Gresham. 4. I will look in to attending an IOP program. I will discuss with my [place] mental Health therapist and number provided for [facility] - [phone] to schedule assessment fr IOP program. 5. I will go to [facility] if I have concerning mental health symptoms. 6. I will access [facility] if needed by calling [phone]. 7. I will consider calling [facility] Adult Mental health intake at [phone]. documented as of this encounter Visit Diagnoses [...] [facility]. 3. I will update CCC Team [...] Assessment Noted Time PHQ-9 Depression Total Score: 10 025 10:33 AM CDT documented as of this encounter Care Teams Beauty Operator Apprentice Relationship Specialty [place] [address] [place] [address] PCP - General Family Practice 07/11/14 [place] [address] [place] [address] Assigned PCP 12/16/11 Christy Campuzano PA-C [address] [place] [address] [id number] Referring Physician Family Medicine 04/22/20 Hans Cannon MD [address] [place] [address] 206362 Resident Pulmonary Disease 04/22/20 Estella Hassan, [facility] [address] [facility] [place], [place] 8[address] Pharmacist Pharmacist 05/26/20 Elaina Moreno MD [address] [place] [address] [phone] Cardiovascular & Thoracic Surgery 08/06/20 John Webb MD [address] [address] Cardiovascular Disease 08/25/21 John Webb MD [address] [address] Cardiovascular Disease 08/25/21 Estella Hassan, [facility] [address] [place], [place] 962156 Assigned MTM Pharmacist 12/09/21 Lindsay Carey OD [address] [facility] [place] [address] Ophthalmology 01/29/22 Richard Kam MD [address] [place], [place] 935[address] Assigned Musculoskeletal Provider 08/14/22 [place] [address] [place] [address] [address] [phone] Assigned Neuroscience Provider 01/01/23 12/03/24 Rosemarie Mcdowell, RN Waste Water Operator Diabetes Education 03/17/23 Mitra Kendall, CRAWLER TRACTOR OPERATOR Lead Label Printer Primary Care - CC 12/12/23 Lizet Mann PA-C [address] [place] [address] Assigned Cancer Care Provider 01/04/24 Ravi Brownlee MD [address] [facility] [address] [place], [place] [address]285 Assigned Pulmonology Provider 01/04/24 Manuel Ahn OD [address] [place], [place] 592182 Private Chef 01/05/24 Thalia Charles [facility] [address] [place], [place] [phone] Pharmacist Pharmacy 01/26/24 Gaurav Valenzuela APRN ASSOCIATE AUTOMATION ENGINEER [address] [facility] [address] [place], [place] [phone] Assigned Sleep Provider 02/04/24 Debbie Mann MD [address] [facility] 200 [place], [place] [phone] Cardiovascular Disease 02/24/24 Hakeem Chacko MBBS [address] [place] [address] Assigned Rheumatology Provider 04/05/24 Debbie Mann MD [address] [facility] 200 [place], [place] [phone] Assigned Heart and Vascular Provider 05/06/24 Timothy Tejada MD [address] [place] [phone] Ophthalmology 05/29/24 Timothy Tejada MD [address] [facility] [phone] Assigned Surgical Provider 06/03/24 Elsie Roberts APRN ASSOCIATE AUTOMATION ENGINEER [address] [facility] [place] [address] [address] Nurse Practitioner Pain Medicine 10/16/24 Cristy Morton MD [facility] [facility] [place] [place] [address] Assigned Pediatric Specialist Provider 11/03/24 Georgie Anguiano PA-C [address] [address] Assigned Neuroscience Provider 12/04/24 documented as of this encounter
--- OUTSIDE RECORDS SUMMARY | 2024-12-06 00:42 | XMS_ITS | Clinical Summary ---
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 Coordination - Initial 10/18/2024 2:30 PM CDT Office Visit [address] [phone] Va Glez MD Moderate persistent asthma without complication (Primary Dx); Type 2 diabetes mellitus without complication, without long-term current use of insulin (H); Primary osteoarthritis of right knee; LUZ (generalized anxiety disorder) 10/18/2024 11:40 AM CDT Therapy Visit [address] [place] [phone] Pattie Casillas, PT Primary osteoarthritis of right knee (Primary Dx); Chronic pain of right knee 10/18/[address] [phone] Va Glez MD 10/18/2024 Travel 10/18/2024 Telephone [facility] [address] [phone] Richard Kam MD Schedule Surgery 10/18/2024 MyC Medical Advice [address] [place] [address] Ilene Gurera 10/18/2024 Telephone [facility] [address] [phone] Richard Kam MD Schedule Surgery 10/17/2024 10:19 PM CDT - 10/18/2024 12:[address] [facility] Emergency Dept [address] [place] [phone] Rodo Jackson MD Mild intermittent asthma with acute exacerbation (Primary Dx) Discharge Disposition: Home or Self Care 10/17/2024 10:20 AM CDT Office Visit [facility] [place] [address] [facility] [address] 4th [place] [phone] Richard Kam MD Right carpal tunnel syndrome (Primary Dx) 10/17/2024 MyC Medical Advice [facility] Neurology [facility] - [address], [address] [place] [phone] Cassandra Minor RN 10/17/2024 Telephone [facility] Neurosurgery [address] [phone] Trent Gresham MD Appointment 10/16/2024 7:30 PM CDT Ancillary Procedure [address] [place] [address] Javon Leslie PA-C SOB (shortness of breath); Moderate asthma without complication, unspecified whether persistent 10/16/2024 7:10 PM CDT Office Visit [address] [place] [address] Javon Leslie PA-C SOB (shortness of breath) (Primary Dx); Moderate asthma without complication, unspecified whether persistent; Type 2 diabetes mellitus with hyperglycemia, without long-term current use of insulin (H) 10/16/2024 2:40 PM CDT Therapy Visit [facility] [address] [facility] [address] [place] [phone] Blaise Dalton PT Primary osteoarthritis of right knee (Primary Dx); Chronic pain of right knee 10/16/2024 Travel 10/14/2024 6:15 PM CDT Office Visit [address] [place] [address] Murray Beverly MD Carpal tunnel syndrome of right wrist (Primary Dx); Moderate persistent asthma with acute exacerbation 10/14/2024 Travel 10/12/2024 2:30 PM CDT Allied Health/Nurse Visit [facility] [address] [place] [phone] Anxiety 10/12/2024 10:35 AM CDT Ancillary Procedure [facility] [place] [address] [facility] [address] [place] [address] Williams Allen MD Chronic foot pain, right 10/12/2024 10:20 AM CDT Office Visit [facility] [address] [facility] [address] [place] [address] Williams Allen MD Type 2 diabetes mellitus with peripheral neuropathy (H) (Primary Dx); Chronic foot pain, right; Bilateral leg pain; Bilateral foot pain 10/12/2024 MyC Medical Advice [facility] [address] [facility] 101 [place] [address] Williams Allen MD 10/12/2024 Refill [facility] [address] [place] [phone] Va Glez MD Refill Request 10/12/[address] [phone] Va Glez MD Patient Request 10/12/2024 Travel 10/12/2024 Telephone [facility] [address] [place] [address] Fabrice Moon MD Call Back 10/11/2024 10:30 AM CDT Office Visit [facility] [address] [place] [address] Ravi Marte PA-C Primary osteoarthritis of right knee (Primary Dx) 10/11/2024 8:20 AM CDT Therapy Visit [facility] [address] [place] [phone] Pattie Casillas M, PT Primary osteoarthritis of right knee (Primary Dx); Chronic pain of right knee 10/11/2024 Orders Only (auto-released) [address] [phone] Va Glez MD 10/11/2024 Orders Only (auto-released) [address] [phone] Va Glez MD 10/11/2024 Orders Only (auto-released) [address] [phone] Va Glez MD 10/11/2024 Orders Only (auto-released) [address] [phone] Va Glez MD 10/11/2024 Telephone [facility]opedic [address] [address] Fabrice Moon MD Appointment 10/11/2024 Orders Only (auto-released) [address] [phone] Va Glez MD 10/10/2024 12:15 PM CDT Ancillary Procedure [facility] [address] [place] [address] Georgie Anguiano PA-C 10/10/2024 11:20 AM CDT Office Visit [facility] Neurosurgery [address] [place] [phone] Trent Gresham MD Fusaro, Maxine, PA-C Right leg pain (Primary Dx) 10/10/2024 Refill [facility] [address] [place] [phone] Va Glez MD Medication Refill 10/10/2024 Travel 10/09/[address] [facility] [place] [address] [facility] [address] [place] [phone] Trent Gresham MD Emg 10/09/2024 Telephone [facility] Neurology [address], [address] [place] [phone] Trent Gresham MD Appointment 10/09/2024 Telephone [facility] [place] [address] [facility] 4th [place] [phone] Richard Kam MD Call Back (pain) 10/08/2024 4:30 PM CDT Office Visit [address] [phone] Carmen Amaro MD Paresthesia (Primary Dx) 10/08/2024 Travel 10/08/2024 Telephone [facility] [address] [place] [address] Rodo Alexis PA-C Call Back (Pt injection appt) 10/06/2024 8:17 PM CDT - 10/07/2024 1:[address] [facility] Emergency Dept [address] [place] [address] Nanette Buckley MD Paresthesias (Primary Dx); Cervical radiculopathy; Vision changes Discharge Disposition: Home or Self Care 10/06/2024 6:55 PM CDT Office Visit [facility] [address] [phone] Kaushik Maguire PA-C Double vision (Primary Dx); Numbness and tingling of right upper extremity; Left against medical advice 10/06/2024 Travel 10/03/2024 4:00 PM CDT Therapy Visit [facility] [address] [facility] [address] [place] [address] Blaise Dalton PT Primary osteoarthritis of right knee (Primary Dx); Chronic pain of right knee 10/03/2024 3:00 PM CDT Office Visit [facility] Neurosurgery [facility] [address] [facility] [address] [place] [phone] Trent Gresham MD Right arm numbness (Primary Dx) 10/03/2024 Travel 10/03/[address] [facility] Neurosurgery [facility] [address] [place] [address] 300 [place] [phone] Trent Gresham MD Previsit 09/28/[address] [phone] Lizet Mann PA-C Refill Request 09/27/2024 11:30 AM CDT Office Visit [address] [phone] Va Glez MD Encounter for Medicare annual wellness exam (Primary Dx); Type 2 diabetes mellitus without complication, without long-term current use of insulin (H); Diabetic polyneuropathy associated with type 2 diabetes mellitus (H); Right carpal tunnel syndrome; Moderate persistent asthma without complication; Anterolisthesis of cervical spine; Retrolisthesis; Cervical radiculopathy; Cervical spinal stenosis; Major depressive disorder, recurrent episode, moderate (H); Special screening for malignant neoplasms, colon 09/27/2024 11:00 AM CDT Office Visit [address] [phone] Estella Hassan, [facility] Type 2 diabetes mellitus without complication, without long-term current use of insulin (H) (Primary Dx); Morbid obesity due to excess calories (H); Hyperlipidemia LDL goal <100; LUZ (generalized anxiety disorder); Major depressive disorder, recurrent episode, moderate (H); Chronic bilateral low back pain without sciatica; Diabetic polyneuropathy associated with type 2 diabetes mellitus (H); Wrist stiffness, right; Vitamin D deficiency; Moderate persistent asthma without complication; Chronic rhinitis 09/27/2024 Refill [facility] [address] [place] [address] Va Glez MD Medication Refill 09/27/2024 Telephone [facility] [address] [place] [phone] Va Glez MD Medication Request 09/27/2024 Travel 09/26/2024 11:35 AM CDT Ancillary Procedure [facility] [address] [place] [address] Ravi Arango MD DDD (degenerative disc disease), cervical; Spondylolisthesis of cervical region; Cervical spinal stenosis 09/26/2024 10:40 AM CDT Office Visit [address], [address] [place] [phone] Ravi Arango MD Right carpal tunnel syndrome (Primary Dx); DDD (degenerative disc disease), cervical; Spondylolisthesis of cervical region; Cervical spinal stenosis 09/25/2024 3:20 PM CDT Therapy Visit [facility] [address] [place] [address] [place] [phone] Lisa Ramos, MOIZ Primary osteoarthritis of right knee (Primary Dx); Chronic pain of right knee 09/25/2024 9:30 AM CDT Office Visit [facility] [address] [place] [phone] Richard Kam MD Type 2 diabetes mellitus with hyperglycemia, without long-term current use of insulin (H) (Primary Dx); Right carpal tunnel syndrome 09/25/2024 Travel 09/21/2024 2:40 PM CDT Office Visit [address] [phone] Lizet Mann PA-C Moderate persistent asthma without complication (Primary Dx) 09/21/2024 10:20 AM CDT Office Visit [facility] [address] [address] Hans Caldwell PA-C Right carpal tunnel syndrome (Primary Dx); Type 2 diabetes mellitus with hyperglycemia, without long-term current use of insulin (H); Primary osteoarthritis of right wrist; Primary osteoarthritis of right knee 09/21/2024 Telephone [facility] [place] [address] [facility] 4th [place] [phone] Hans Caldwell PA-C 09/21/2024 Travel 09/21/2024 Orders Only [facility] [address] [address] Rodo Alexis PA-C Primary osteoarthritis of right knee (Primary Dx) 09/21/2024 Telephone [facility] [address] [place] [phone] Delaney Coe, [employer] Same Day Appointment 09/20/[address] [phone] Va Glez MD Medication Refill 09/18/2024 3:45 PM CDT Office Visit [facility] [address] [address] Richard Kam MD Right carpal tunnel syndrome (Primary Dx) 09/18/2024 Telephone [facility] [address] [address] Fabrice Moon MD 09/17/2024 2:10 PM CDT Therapy Visit [facility] [address] [place] [phone] Pattie Casillas, PT Primary osteoarthritis of right knee; Chronic pain of right knee 09/17/2024 11:30 AM CDT Office Visit [facility] Clinic [address] [place] [address] Fabrice Moon MD Primary osteoarthritis of right knee (Primary Dx); Chronic pain of right knee 09/17/2024 11:25 AM CDT Ancillary Procedure [facility] [address] [address] Fabrice Moon MD Primary osteoarthritis of right knee 09/17/2024 Travel 09/17/2024 Results Follow-Up [facility] [address] [phone] Gaby Vila DO Subj: Message about your results 09/13/2024 5:00 PM CDT Office Visit [facility] [address] [place] [phone] Whitney Hood PA-C Impacted cerumen of right ear (Primary Dx); Nasal congestion; Arm paresthesia, right 09/13/2024 3:20 PM CDT Office Visit [facility] Sports Medicine [address] [address] Gaby Vila DO Primary osteoarthritis of right knee (Primary Dx); Chronic pain of right knee; Type 2 diabetes mellitus with hyperglycemia, without long-term current use of insulin (H); Effusion of right knee 09/13/2024 Travel 09/10/[address] [phone] Lizet Mann PA-C Refill Request 09/08/2024 12:30 PM CDT Office Visit [facility] Urgent [facility] [address] [place] [phone] Lisa Chou NP Chronic pain of right knee (Primary Dx); Urine frequency; Type 2 diabetes mellitus with hyperglycemia, without long-term current use of insulin (H) from Last 3 Months Immunizations Immunization Administration Dates Next Due COVID-19 12+ (Pfizer) [...] (Adult), Adsorbed 07/24/1997 Zoster recombinant adjuvante d (Shingrix) 10/11/2021,08/08/2021 Family History Medical History Relation Comments [...] 6 11/01/2024 [facility] - Occupational Stress Questionnaire Answer Date [...] on file Legal Sex Male 3:29 AM [employer] Gender Identity Not on file Sexual [...] Mass Index 41.2 12/05/2024 7:27 PM CDT Plan of Treatment Upcoming Encounters Date Type Department Care Team (Late st Contact Info) Description 12/11/2024 2:10 PM CDT Therapy Visit [facility] [address] [place] [phone] Shanta Cooper, PT 12/14/2024 11:20 AM CDT Office Visit [facility] [phone] [place] [address] [place] [phone] Lizet Mann PA-C [phone] [place] [phone] 12/17/2024 2:10 PM CDT Office Visit [facility] Orth[facility] [address] [facility] 4th [place] [phone] Richard Kam MD [address] [place] [address] 12/19/2024 8:20 AM CDT Therapy Visit [address] [phone] Shanta Cooper, PT 12/24/2024 5:00 PM CDT Therapy Visit [address] [phone] Pattie Casillas, PT 12/25/2024 10:20 AM CDT Therapy Visit [address] [phone] Shanta Cooper, PT 01/03/2025 1:00 PM CDT Office Visit [address] [phone] Estella Hassan, [facility] [address] [place] [address] 01/03/2025 1:30 PM CDT Office Visit [address] [phone] Va Glez MD [address] [place] [address] 01/08/2025 1:15 PM CDT Office Visit [facility] [address] [place] [address] [address] [place] [phone] Hakeem Chacko MBBS [address] [place] [address] Scheduled Procedures Name Priority Associated Diagnoses Date/Ti me INJECTION, EPIDURAL, TRANSFO RAMINAL APPROACH Cervical radiculitis RELEASE, CARPAL TUNNEL, ENDOSCOPIC Right carpal tunnel syndrome Health Maintenance Due Date Last Done Comments CT COLONOGRAPHY 1958 FIT 1958 FLEX SIG 1958 sDNA (Cologuard) 1958 COLONOSCOPY 1968 COLORECTAL CANCER SCREENING 1968 ASTHMA ACTION PLAN 07/04/2024 07/05/2023, 0 07/05/2023, 07/05/2023, Additional history exists COVID-19 VACCINE ( season) 2024 12/23/2023, 06/13/2023, 12/25/2021, Additional history exists INFLUENZA VACCINE (#1) 2024 , 01/08/2023, 11/07/2021, Additional history exists DIABETIC FOOT EXAM 12/22/2024 12/23/2023, 1 , 10/20/2022, Additional history exists LIPID 12/22/2024 12/23/2023, 11/0 09/2022, 11/04/2020, Additional history exists A1C 03/30/2025 09/27/2024, 04/0 10/2024, 03/28/2024, Additional history exists ASTHMA CONTROL TEST 04/20/2025 10/18/2024, 09/21/2024, 09/04/2024, Additional history exists PHQ-9 05/04/2025 11/01/2024, 0709/2024, 09/04/2024, Additional history exists EYE EXAM 05/30/2025 05/30/2024, 02/01/2024 ANNUAL REVIEW OF HM ORDERS 07/24/202507/24, 12/23/2023, 01/18/2023, Additional history exists FALL RISK ASSESSMENT 09/27/2025 09/27/2024, 05/22/2024, 02/28/2024, Additional history exists MEDICARE ANNUAL WELLNESS VISIT 09/27/2025 09/27/2024, 05/22/2024, 12/23/2023, Additional history exists MICROALBUMIN 11/15/2025 11/15/2024, 04/2023, 02/19/2022, Additional history exists BMP 11/18/2025 11/18/2024, 0 06/2024, 11/05/2024, Additional history exists DTAP/TDAP/TD VACCINE (2 - Td or Tdap) 01/03/2028 01/02/2018, 11/23/1999, 07/24/1997 ADVANCE CARE PLANNING 09/27/2029 09/27/2024 , 10/20/2022, 07/09/2020, Additional history exists ZOSTER VACCINE Completed 10/11/2021, 08/08/2021 RSV VACCINE Completed 01/25/2023 PNEUMOCOCCAL VACCINE 50+ YEARS Completed 05/01/2023, 01/14/2017 HEPATITIS C SCREENING Completed 04/02/2024, 017 DEPRESSION ACTION PLAN Completed , 06/15/2024, 01/02/2018, Additional history exists Medicare Annual MTM Pharmacist Visit (once per calendar year) Completed 09/27/2024, 02/19/2022 AORTIC ANEURYSM SCREENING (SYSTEM ASSIGNED) Completed 11/07/2024, 03/28/2024, 03/08/2024, Additional history exists HPV VACCINE (No Doses Required) Completed MENINGITIS VACCINE Aged Out No longer eligible based on patient's age to [...] my yearly preventive visit. 4. [facility] as I currently am [...] for health insurance by looking in to [employer] and talking with a FRW. Completed 3. I will look for a new job and will access resources that the [employer] offers. . Sarted new job 4. [...] programs I qualify for by by calling [phone]. 3. I will see if I am eligible for unemployment after losing my job. I will call [phone] to ask for assistance with unemployment application. 4. I will apply for jobs. I will work with [employer] in finding a job (Empowerment.) 5. I will access [employer] and ask about financial resources (such as [...] Ronnie. 3. I will meet with community production manufacturing worker Manjula Gresham. 4. I will look in to attending an IOP program. I will discuss with my [place] mental Health therapist and number provided for [facility] Behavioral Access - [phone] to schedule assessment fr IOP program. 5. I will go to [facility] if I have concerning mental health symptoms. 6. I will access [facility] Crisis if needed by calling [phone]. 7. I will consider calling [facility] Adult Mental health intake at [phone]. Procedures Procedure Name Priority Date/Time Associated Diagnosis Comments CBC WITH PLATELETS STAT 11/18/2024 12 :09 PM CDT Dyspnea on exertion BASIC METABOLIC PANEL STAT 11/18/2024 12:09 PM CDT Dyspnea on exertion TROPONIN T, HIGH SENSITIVITY STAT 11/18/2024 12:09 PM CDT Dyspnea on exertion EKG 12-LEAD COMPLETE W/READ - CLINICS Routine 11/18/2024 Dyspnea on exertion ALBUMIN AND CREATININE WITH RATIO RANDOM URINE QUANTITATIVE Routine 11/15/2024 11:44 AM CDT Type 2 diabetes mellitus without complication, without long-term current use of insulin (H) BASIC METABOLIC PANEL Routine 11/15/2024 11:40 AM CDT Diarrhea, unspecified type [place] ARTHROCENTESIS ASPIR&/INJ INTERM JT/BURS W/US Routine 11/07/2024 12:19 PM CDT Primary osteoarthritis of right wrist EKG 12-LEAD COMPLETE W/READ - CLINICS Routine 11/07/2024 Irregular heart rhythm Aneurysm of ascending aorta without rupture Atrial fibrillation with RVR (H) GLUCOSE BY METER Routine 11/05/2024 6:06 PM CDT GLUCOSE BY METER Routine 11/05/2024 12:2 8 PM CDT ECHO COMPLETE Routine 11/05/2024 8:58 AM CDT CBC WITH PLATELETS & DIFFERENTIAL Routine 11/05/2024 8:42 AM CDT CBC WITH PLATELETS AND DIFFERENTIAL Routine 11/05/2024 8:42 AM CDT BASIC METABOLIC PANEL (LIMITED OCCURRENCES) Routine 11/05/2024 8:42 AM CDT GLUCOSE BY [...] (LIMITED OCCURRENCES) STAT 11/04/2024 12:04 PM CDT CBC WITH PLATELETS AND DIFFERENTIAL STAT 11/04/2024 12:04 PM CDT TSH WITH FREE T4 REFLEX Add-On 11/04/2024 11:00 AM CDT MAGNESIUM (LIMITED OCCURRENCES) Add-On 11/04/2024 11:00 AM CDT EXTRA RED TOP TUBE STAT 11/04/2024 11 :00 AM CDT EXTRA BLUE TOP TUBE STAT 11/04/2024 1 1:00 AM CDT EXTRA TUBE STAT 11/04/2024 11:00 AM CDT TROPONIN T, HIGH SENSITIVITY STAT 11/04/2024 11:00 AM CDT NT-PROBNP STAT 11/04/2024 11:00 AM CDT COMPREHENSIVE METABOLIC PANEL (LIMITED OCCURRENCES) STAT 11/04/2024 11:00 AM CDT EKG 12-LEAD, TRACING ONLY STAT 11/04/2024 9:51 AM CDT BLOOD CULTURE STAT 10/28/2024 9:04 PM CDT CBC WITH PLATELETS AND DIFFERENTIAL (LIMITED OCCURRENCES) STAT 10/28/2024 8:06 PM CDT BLOOD CULTURE STAT 10/28/2024 8:06 PM CDT EXTRA RED TOP TUBE STAT 10/28/2024 8: 06 PM CDT EXTRA BLUE TOP TUBE STAT 10/28/2024 8 :06 PM CDT CBC WITH PLATELETS AND DIFFERENTIAL STAT 10/28/2024 8:06 PM CDT EXTRA TUBE STAT 10/28/2024 8:06 PM CDT LACTIC ACID WHOLE BLOOD WITH 1X REPEAT IN 2 HR WHEN >2 STAT 10/28/2024 8:06 PM CDT BASIC METABOLIC PANEL (LIMITED OCCURRENCES) STAT 10/28/2024 8:06 PM CDT ROUTINE UA WITH MICROSCOPIC STAT 10/21/2024 5:47 PM CDT TROPONIN T, HIGH SENSITIVITY STAT 10/21/2024 4:32 PM CDT XR CHEST 2 VIEWS STAT 10/21/2024 3:17 PM CDT US ABDOMEN LIMITED STAT 10/21/2024 3: 16 PM CDT EXTRA RED TOP TUBE STAT 10/21/2024 2: 30 PM CDT EXTRA BLUE TOP TUBE STAT 10/21/2024 2 :30 PM CDT EXTRA TUBE STAT 10/21/2024 2:30 PM CDT NT-PROBNP STAT 10/21/2024 2:30 PM CDT TROPONIN T, HIGH SENSITIVITY STAT 10/21/2024 2:30 PM CDT LIPASE STAT 10/21/2024 2:30 PM CDT COMPREHENSIVE METABOLIC PANEL (LIMITED OCCURRENCES) STAT 10/21/2024 2:30 PM CDT CBC WITH PLATELETS (LIMITED OCCURRENCES) STAT 10/21/2024 2:30 PM CDT EKG 12-LEAD, TRACING ONLY STAT 10/21/2024 2:20 PM CDT TROPONIN T, HIGH SENSITIVITY STAT 10/17/2024 11:42 PM CDT XR CHEST 2 VIEWS STAT 10/17/2024 11:0 1 PM CDT INFLUENZA A/B, RSV AND SARS-COV2 PCR STAT 10/17/2024 10:34 PM CDT EXTRA BLUE TOP TUBE STAT 10/17/2024 1 0:33 PM CDT EXTRA TUBE STAT 10/17/2024 10:33 PM CDT BLOOD GAS VENOUS STAT 10/17/2024 10:3 3 PM CDT NT-PROBNP STAT 10/17/2024 9:29 PM CDT TROPONIN T, HIGH SENSITIVITY STAT 10/17/2024 9:29 PM CDT EXTRA PURPLE TOP TUBE STAT 10/17/2024 9:29 PM CDT EXTRA GREEN TOP (LITHIUM HEPARIN) TUBE STAT 10/17/2024 9:29 PM CDT EXTRA RED TOP TUBE STAT 10/17/2024 9: 29 PM CDT EXTRA BLUE TOP TUBE STAT 10/17/2024 9 :29 PM CDT BASIC METABOLIC PANEL (LIMITED OCCURRENCES) STAT 10/17/2024 9:29 PM CDT CBC WITH PLATELETS (LIMITED OCCURRENCES) STAT 10/17/2024 9:29 PM CDT EXTRA TUBE STAT 10/17/2024 9:29 PM CDT EKG 12-LEAD, TRACING ONLY STAT 10/17/2024 8:58 PM CDT XR CHEST 2 VIEWS STAT 10/16/2024 7:37 PM CDT SOB (shortness of breath) Moderate asthma without complication, unspecified whether persistent WY INHALATION/NEBULIZER TREATMENT Routine 10/16/2024 7:25 PM CDT SOB (shortness of breath) Moderate asthma without complication, unspecified whether persistent XR FOOT RIGHT G/E 3 VIEWS Routine 10/12/2024 10:40 AM CDT Chronic foot pain, right XR LUMBAR SPINE G/E 4 VIEWS Routine 10/10/2024 12:28 PM CDT Right leg pain TROPONIN T, HIGH SENSITIVITY STAT 10/06/2024 11:34 PM CDT MRA NECK (CAROTIDS) W/O & W CONTRAST STAT 10/06/2024 11:33 PM CDT MRA BRAIN ([place]) W/O CONTRAST STAT 10/06/2024 11:33 PM CDT MR BRAIN W/O & W CONTRAST STAT 10/06/2024 11:33 PM CDT XR CHEST 2 VIEWS STAT 10/06/2024 11:2 6 PM CDT EKG 12-LEAD, TRACING ONLY STAT 10/06/2024 8:43 PM CDT CBC WITH PLATELETS AND DIFFERENTIAL (LIMITED OCCURRENCES) STAT 10/06/2024 8:30 PM CDT CBC WITH PLATELETS AND DIFFERENTIAL STAT 10/06/2024 8:30 PM CDT TROPONIN T, HIGH SENSITIVITY STAT 10/06/2024 8:30 PM CDT BASIC METABOLIC PANEL (LIMITED OCCURRENCES) STAT 10/06/2024 8:30 PM CDT GLUCOSE BY METER STAT 10/06/2024 8:12 PM CDT EXTRA GREEN TOP (LITHIUM HEPARIN) TUBE Routine 09/27/2024 11:11 AM CDT Type 2 diabetes mellitus without complication, without long-term current use of insulin (H) EXTRA RED TOP TUBE Routine 09/27/2024 11 :11 AM CDT Type 2 diabetes mellitus without complication, without long-term current use of insulin (H) HEMOGLOBIN A1C Routine 09/27/2024 11:11 AM CDT Type 2 diabetes mellitus without complication, without long-term current use of insulin (H) EXTRA TUBE Routine 09/27/2024 11:11 AM CDT Type 2 diabetes mellitus without complication, without long-term current use of insulin (H) XR CERVICAL SPINE COMPLETE W OBL & FLEX/EXT Routine 09/26/2024 11:55 AM CDT DDD (degenerative disc disease), cervical Spondylolisthesis of cervical region Cervical spinal stenosis XR KNEE RIGHT G/E 4 VIEWS Routine 09/17/2024 11:31 AM CDT Primary osteoarthritis of right knee WY REMOVAL IMPACTED CERUMEN IRRIGATION/LVG UNILAT Routine 09/13/2024 5:20 PM CDT Impacted cerumen of right ear WY ARTHROCENTESIS ASPIR&/INJ MAJOR JT/BURSA W/US Routine 09/13/2024 3:53 PM CDT Primary osteoarthritis of right knee Effusion of right knee CELL COUNT WITH DIFFERENTIAL FLUID Routine 09/13/2024 3:43 PM CDT Primary osteoarthritis of right knee Chronic pain of right knee Effusion of right knee DIFERENTIAL BODY FLUID Routine 3:43 PM CDT Primary osteoarthritis of right knee Chronic pain of right knee Effusion of right knee CELL COUNT BODY FLUID Routine 09/13/2024 3:43 PM CDT Primary osteoarthritis of right knee Chronic pain of right knee Effusion of right knee CRYSTAL ID SYNOVIAL FLUID Routine 09/13/2024 3:43 PM CDT Primary osteoarthritis of right knee Chronic pain of right knee Effusion of right knee UA MACROSCOPIC WITH REFLEX TO MICRO AND CULTURE Routine 09/08/2024 1:21 PM CDT Urine frequency GLUCOSE WHOLE BLOOD Routine 09/08/2024 1 :06 PM CDT Type 2 diabetes mellitus with hyperglycemia, without long-term current use of insulin (H) HEPATITIS C ANTIBODY Routine 04/02/2024 3:20 PM [employer] Polyarthralgia ALVIN positive LIPID REFLEX TO DIRECT LDL PANEL Routine 12/23/2023 1:51 PM CDT Type 2 diabetes mellitus without complication, without long-term current use of insulin (H) ASTHMA ACTION PLAN Routine 02/11/2021 4: 19 PM [employer] from Last 3 Months or Most Recently Relevant to Health Maintenance Results * Troponin T, High Sensitivity (11/18/2024 12:09 PM CDT) Only the most recent of8 resultswithin the time period is included. Troponin T, High Sensitivity 20 <=22 ng/L [...] LAB - BLOOD ORDERABLES Final Result LABORATORY [facility] Acute Care Lab [address] Lab (1st floor, no room number) [place] [address], [facility] * (ABNORMAL) Basic metabolic panel (Ca, Cl, CO2, Creat, Gluc, K, Na, BUN) (11/18/2024 12:09 PM CDT) Only the most recent of2 resultswithin the time period is included. Sodium 142 135 - 145 mmol/L 11/18/2024 [...] - BLOOD ORDERABLES Final Result EA LABORATORY [facility] [address] [place] [address], [facility] * CBC with platelets (11/18/2024 12:09 PM CDT) [facility] Signature WBC Count 6.66 4.00 - 11.00 10e3/uL [...] - BLOOD ORDERABLES Final Result EA LABORATORY [facility] [address] [place] [address], [place] * EKG 12-lead complete w/read - Clinics (11/18/2024) Only the most recent of2 resultswithin the time period is included. us Iftikhar Funk MD ECG ORDERABLES Final Result * Albumin and Creatinine with Ratio Random [...] control, and institution of therapy with an zznjvhlxsmo-lmvswngjof-zactgj (MILES) inhibitor (if the patient can tolerate it). Urine URINE SPECIMEN / Unknown Non-blood Collection / Unknown 11/15/2024 11:44 AM CDT 11/15/2024 11:44 AM CDT us Whitney Hood PA-C LAB - URINE ORDERABLES Fin al Result LABORATORY [facility] Core Lab [address], [address] [place] [address], [facility] * (ABNORMAL) Glucose by meter (11/05/2024 6:06 PM CDT) Only the most recent of7 resultswithin the time period is included. GLUCOSE BY METER POCT 156(H) 70 - 99 mg/dL 11/05/2024 6:13 PM CDT LABORATORY POC Blood, Capillary BLOOD SPECIMEN / Unknown 11/05/2024 6:06 PM CDT 11/05/2024 6:13 PM CDT us Devon Shelton MD LAB - BEAKER POCT Final Result LABORATORY [facility] Acute Care Lab [address] [facility] Lab (1st floor, no room number) [place] [address], [facility] * ECHO COMPLETE (11/05/2024 8:58 AM CDT) [facility] LVEF 55-60% CARDIOLOGY RESULTS Anatomical Region Laterality Modality Echocardiography 11/05/2024 8:17 AM CDT Narrative 11/05/2024 11:54 AM CDT [id number]^KRISTAN^DANA^MONICA [facility] Echocardiography Laboratory [address] [place] [address] Name: DANAE DEVI : 1960 Study Date: 11/05/2024 08:17 AM Age: 64 yrs Gender: Male Patient Location: [facility] Reason For Study: Atrial Fibrillation Ordering Physician: DANA MOSLEY Referring Physician: Va Glez Performed By: Nataliia [...] Note Jean Carlos Huizar MD - 11/05/2024 [id number]^KRISTAN^DANA^MONICA [facility] Echocardiography Laboratory [address] [place] [address] Name: DANAE DEVI : 1960 Study Date: 11/05/2024 08:17 AM Age: 64 yrs Gender: Male Patient Location: [facility] Reason For Study: Atrial Fibrillation Ordering Physician: DANA MOSLEY Referring Physician: Va Glez Performed By: Nataliia [...] Huizar MD on 11/05/2024 11:54 AM Dana Mosley PA-C CV ECHO ORDERABLES Edite d Result - Final * (ABNORMAL) CBC with platelets and differential (11/05/2024 8:42 AM CDT) Only the most recent of4 resultswithin the time period is included. WBC Count 4.02 4.00 - 11.00 10e3/uL [...] NRBCs per 100 WBC 0.0 <1.0 /100 10:01 AM CDT [facility] LABORATORY Absolute Neutrophils 2.80 1.60 - 8.30 10e3/uL 11/05/2024 10:01 AM CDT [facility] LABORATORY Absolute Lymphocytes 0.69(L) 0.80 - 5.30 10e3/uL 11/05/2024 10:01 AM CDT [facility] LAB[facility]ATORY Absolute Monocytes 0.33 0.00 - 1.30 10e3/uL 11/05/2024 10:01 AM CDT [facility] LAB[facility]ATORY Absolute Eosinophils 0.17 0.00 - 0.70 10e3/uL 11/05/2024 10:01 AM CDT [facility] LAB[facility]ATORY Absolute Basophils <0.03 0.00 - 0.20 10e3/uL 11/05/2024 10:01 AM CDT [facility] LAB[facility]ATORY Absolute Immature Granulocytes <0.03 <=0.40 10e3/uL 11/05/2024 10:01 AM CDT [facility] LAB[facility]ATORY Absolute NRBCs <0.03 10e3/uL 11/05/2024 10:01 AM CDT [facility] LAB[facility]ATORY Blood STRUCTURE OF LEFT HAND / Unknown Venipuncture / Unknown 11/05/2024 8:42 AM CDT 11/05/2024 9:56 AM CDT us Dana Mosley PA-C LAB - BLOOD ORDERABLES F inal Result RH LABORATORY [facility] Acute Care Lab [address] Lab (1st floor, no room number) [place] [address], [facility] * (ABNORMAL) Basic Metabolic Panel (Limited Occurrences) (11/05/2024 8:42 AM CDT) Only the most recent of4 resultswithin the time period is included. Sodium 139 135 - 145 mmol/L 11/05/2024 [...] - 1.17 mg/dL 11/05/2024 10:36 AM CDT LABORATORY GFR Estimate >90 >60 mL/min/1.7 3m2 11/05/2024 10:36 AM CDT LABORATORY Comment:eGFR calculated 2020 CKD-EPI equation. Calcium 9.2 8.8 - 10.4 mg/dL 11/05/2024 10:36 AM CDT LABORATORY Glucose 213(H) 70 - 99 mg/dL 11/05/2024 10:36 AM CDT LABORATORY Blood STRUCTURE OF LEFT HAND / Unknown Venipuncture / Unknown 11/05/2024 8:42 AM CDT 11/05/2024 9:56 AM CDT us Dana Mosley PA-C LAB - BLOOD ORDERABLES F inal Result LABORATORY [facility] Acute Care Lab [address] Lab (1st floor, no room number) [place] [address], [facility] * EKG 12-lead, tracing only (11/05/2024 1:01 AM CDT) Only the most recent of5 resultswithin the time period is included. Systolic Blood Pressure mmHg RADIOLOGY RESULTS Diastolic Blood Pressure mmHg RADIOLOGY RESULTS Ventricular Rate 59 BPM RAD IOLOGY RESULTS Atrial Rate 59 BPM RADIOLOG Y RESULTS [place] Interval 166 ms RADIOLOG Y RESULTS QRS Duration 108 ms RADIOLO GY RESULTS QT 434 ms RADIOLOGY RESULTS QTc 429 ms RADIOLOGY RESULTS P [place] 78 degrees RADIOLOGY RESULTS R AXIS -23 degrees RADIOLOGY RESULTS T [place] 65 degrees RADIOLOGY RESULTS Interpretation ECG Sinus bradycardia Cannot rule out Inferior infarct , age undetermined Abnormal ECG Confirmed by MD TOMAS MICHAEL ([id number]) on 11/10/2024 8:54:53 AM RADIOLOGY RESULTS 11/05/2024 1:01 AM CDT 11/10/2024 8:54 AM CDT Dana Mosley PA-C ECG ORDERABLES Edited R esult - Final RADIOLOGY RESULTS * Focused Enteric Pathogen Panel by PCR [...] AM CDT Assay performed using the FDA-cleared [employer] GI Panel Mid from [employer] A negative result should not rule [...] by the Infectious Diseases Diagnostic Laboratory at [facility]. This laboratory is certified under the Clinical Laboratory Improvement Amendments of 1988 (CLIA-88) as qualified to perform high complexity clinical laboratory testing. Dana Mosley PA-C LAB - MICRO GENERAL ORDE [facility] Final Result [facility] Inf. Diseases Diag. Lab [address], [address] [place] [address], [facility] * C. difficile Toxin B PCR with reflex to C. difficile EIA (11/04/2024 9:17 PM CDT) Pathologist [facility] C Difficile Toxin B by PCR Negative Negative 11/05/2024 1:55 AM CDT [facility] Comment:A negative result do es not [...] CDT Narrative [facility] - 11/05/2024 1:55 AM CDT The [employer] Xpert C. difficile Assay, performed on the [employer], is a qualitative in vitro [...] aid in the diagnosis of CDI. Dana Mosley PA-C LAB - MICRO GENERAL ORDE RABLES Final Result [facility] Inf. Diseases Diag. Lab [address], [address] [place] [address], [facility] * Extra Red Top Tube (11/04/2024 11:00 AM CDT) Only the most recent of5 resultswithin the time period is included. Hold Specimen [facility] 11/04/2024 12:31 PM CDT LABORATORY Blood BLOOD SPECIMEN / Unknown Venipuncture / Unknown 11/04/2024 11:00 AM CDT 11/04/2024 11:16 AM CDT Result [facility] Preston Oliveira MD LAB - BLOOD ORDERABLES Fi nal Result LABORATORY [facility] Acute Care Lab [address] [facility] Lab (1st floor, no room number) [place] [address] * Extra Blue Top Tube (11/04/2024 11:00 AM CDT) Only the most recent of5 resultswithin the time period is included. Hold Specimen [facility] 11/04/2024 12:31 PM CDT LABORATORY Blood BLOOD SPECIMEN / Unknown Venipuncture / Unknown 11/04/2024 11:00 AM CDT 11/04/2024 11:16 AM CDT Preston Oliveira MD LAB - BLOOD ORDERABLES Fi nal Result RH LABORATORY [facility] Acute Care Lab [address] Lab (1st floor, no room number) [place] [address], [facility] * (ABNORMAL) Comprehensive Metabolic Panel (Limited Occurrences) (11/04/2024 11:00 AM CDT) Only the most recent of2 resultswithin the time period is included. Sodium 135 135 - 145 mmol/L 11/04/2024 11:44 AM CDT LABORATORY Potassium 4.3 3.4 - 5.3 mmol/L 11/04/2024 11:44 AM CDT LABORATORY Carbon Dioxide (CO2) 26 22 - 29 mmol/L 11/04/2024 11:44 AM CDT LABORATORY Anion Gap 8 7 - 15 mmol/L 11/04/2024 11:44 AM T LABORATORY Urea Nitrogen 14.4 8.0 - 23.0 mg/dL 11/04/2024 11:44 AM CDT LABORATORY Creatinine 0.65(L) 0.67 - 1.17 mg/dL 11/04/2024 11:44 AM CDT LABORATORY GFR Estimate >90 >60 mL/min/1.7 3m2 11/04/2024 11:44 AM CDT LABORATORY Comment:eGFR calculated usin 2020 CKD-EPI equation. Calcium 9.3 8.8 - 10.4 mg/dL 11/04/2024 11:44 AM CDT LABORATORY Chloride 101 98 - 107 mmol/L 11/04/2024 11:44 AM CDT LABORATORY Glucose 228(H) 70 - 99 mg/dL 11/04/2024 11:44 AM CDT LABORATORY Alkaline Phosphatase 91 40 - 150 U/L 11/04/2024 11:44 AM CDT LABORATORY AST 15 0 - 45 U/L 11/04/2024 11:44 AM CDT LABORATORY ALT 23 0 - 70 U/L 11/04/2024 11:44 AM CDT LABORATORY Protein Total 6.6 6.4 - 8.3 g/dL 11/04/2024 11:44 AM CDT LABORATORY Albumin 4.0 3.5 - 5.2 g/dL 11/04/2024 11:44 AM CDT RH LABORATORY Bilirubin Total 0.5 <=1.2 mg/dL 11/04/2024 11:44 AM CDT RH LABORATORY Blood BLOOD SPECIMEN / Unknown Venipuncture / Unknown 11/04/2024 11:00 AM CDT 11/04/2024 11:16 AM CDT Preston Oliveira MD LAB - BLOOD ORDERABLES Fi nal Result [facility] Lab [address] Lab (1st floor, no room number) [place] [address] * Magnesium (Limited Occurrences) (11/04/2024 11:00 AM CDT) Magnesium 1.8 1.7 - 2.3 mg/dL 11/04/2024 4:47 PM CDT RH LABORATORY Blood BLOOD SPECIMEN / Unknown Venipuncture / Unknown 11/04/2024 11:00 AM CDT 11/04/2024 11:16 AM CDT Dana Mosley PA-C LAB - BLOOD ORDERABLES F inal Result Performing Organization Address [facility] Co de Phone Number [facility] Lab [address] Lab (1st floor, no room number) [place] [address] * TSH with free T4 reflex (11/04/2024 11:00 AM CDT) TSH 1.03 0.30 - 4.20 uIU/mL 11/04/2024 4:54 PM CDT RH LABORATORY Blood BLOOD SPECIMEN / Unknown Venipuncture / Unknown 11/04/2024 11:00 AM CDT 11/04/2024 11:16 AM CDT Dana Mosley PA-C LAB - BLOOD ORDERABLES F inal Result [facility] Acute Care Lab [address] [facility] Lab (1st floor, no room number) [place] [address], [facility] * NT-proBNP (11/04/2024 11:00 AM CDT) Only the most recent of3 resultswithin the time period is included. NT-proBNP 46 0 - 229 pg/mL 11/04/2024 11:48 AM CDT LABORATORY Comment: Starting on 07/18/2024, [facility] laboratory began flagging abnormal values for [...] be interpreted with the updated reference intervals. [facility]'s Pediatric (boys and girls) Reference Ranges in pg/mL * 0 up to 3 days: 0 - 69524 3 days up to 1 month: 0 [...] For adult chronic CHF patients according to [employer] [employer] (NYHA) Functional Class, the mean NT-proBNP concentration is as following (5th and 95th percentile values respectively displayed in parentheses): Class I: 1016 pg/mL (33-3410) Class II: 1666 pg/mL (103-6567) Class III: 3029 pg/mL (126-60330) Class IV: 3465 pg/mL (148-04780) Clinical thresholds for acute (emergency department) settings: [...] LAB - BLOOD ORDERABLES Fi nal Result [facility] Acute Care Lab [address] Lab (1st floor, no room number) [place] [address], [facility] * Blood Culture Peripheral blood (BC) Arm, Left (10/28/2024 9:04 PM CDT) Only the most recent of2 resultswithin the time period is included. Culture No Growth 11/02/2024 10:46 PM CDT [facility] Peripheral blood (BC) STRUCTURE OF LEFT UPPER LIMB / Unknown Venipuncture / Unknown 10/28/2024 9:04 PM CDT 10/28/2024 9:08 PM CDT us Chandan Chauhan MD LAB - MICRO GENERAL ORDERABL ES Final Result [facility]ORAT[facility] Inf. Diseases Diag. Lab [address], [address] [place] [address], [facility] * Lactic Acid Whole Blood with 1X Repeat in 2 HR when >2 (10/28/2024 8:06 PM CDT) Lactic Acid, Initial 1.4 0.7 - 2.0 mmol/L 10/28/2024 8:14 PM CDT LABORATORY Blood BLOOD SPECIMEN / Unknown Venipuncture / Unknown 10/28/2024 8:06 PM CDT 10/28/2024 8:13 PM CDT us Azucena Shane MD LAB - BLOOD ORDERABLES Final Result LABORATORY [facility] Acute Care Lab [address] Lab (1st floor, no room number) [place] [address], [facility] * UA with Microscopic (10/21/2024 5:47 PM CDT) Color Urine Straw Colorless, Straw, Light Yellow, Yellow 10/21/2024 6:08 PM CDT LABORATORY Appearance Urine Clear Clear 10/22/19 6:08 PM CDT LABORATORY Glucose Urine Negative Negative mg/dL 10/21/2024 6:08 PM CDT LABORATORY Bilirubin Urine Negative Negative 6:08 PM CDT LABORATORY Ketones Urine Negative Negative mg/dL 10/21/2024 6:08 PM CDT LABORATORY Specific [place] Urine 1.004 1.003 - 1.035 10/21/2024 6:08 [...] Urine Negative Negative 10/21/2024 6:08 PM CDT RH LABORATORY RBC Urine 1 <=2 /HPF 10/21/2024 6:08 PM CDT RH LABORATORY WBC Urine 0 <=5 /HPF 10/21/2024 6:08 PM CDT RH LABORATORY Urine MID-STREAM URINE SPECIMEN / Unknown Non-blood Collection / Unknown 10/21/2024 5:47 PM CDT 10/21/2024 5:58 PM CDT us Shira Valdez MD LAB - URINE ORDE RABLES Final Result RH LABORATORY [facility] Acute Care Lab [address] Lab (1st floor, no room number) [place] [address] * Chest XR, PA & LAT (10/21/2024 3:17 PM CDT) Only the most recent of4 resultswithin the time period is included. Anatomical Region Laterality Modality Chest Digital Radiogra phy 10/21/2024 3:17 PM CDT Impressions 10/21/2024 3:24 PM CDT IMPRESSION: Negative chest. Narrative 10/21/2024 3:24 PM CDT EXAM: XR CHEST 2 VIEWS LOCATION: [facility] DATE: 10/21/2024 INDICATION: chest pressure COMPARISON: None. Procedure Note Jimmy Cedeno MD - 10/21/2024 EXAM: XR CHEST 2 VIEWS LOCATION: [facility] DATE: 10/21/2024 INDICATION: chest pressure COMPARISON: None. IMPRESSION: Negative chest. us Shira Valdez MD IMG DIAGNOSTIC I MAGING ORDERABLES Final Result * US Abdomen Limited (10/21/2024 3:16 PM CDT) Anatomical Region Laterality Modality Abdomen/Pelvis Ultrasound 10/21/2024 3:16 PM CDT Impressions 10/21/2024 3:25 PM CDT IMPRESSION: 1. Cholelithiasis. Otherwise negative. Narrative 10/21/2024 3:25 PM CDT EXAM: US ABDOMEN LIMITED LOCATION: [facility] DATE: 10/21/2024 INDICATION: epigastric pain COMPARISON: None. [...] - 10/21/2024 EXAM: US ABDOMEN LIMITED LOCATION: [facility] DATE: 10/21/2024 INDICATION: epigastric pain COMPARISON: None. [...] Cholelithiasis. Otherwise negative. us Shira Valdez MD IMG US ORDERABLE S Final Result * (ABNORMAL) CBC with Platelets (Limited Occurrences) (10/21/2024 2:30 PM CDT) Only the most recent of2 resultswithin the time period is included. WBC Count 6.1 4.0 - 11.0 10e3/uL [...] Shira Valdez MD LAB - BLOOD ORDE GURPREET Final Result LABORATORY [facility] [address] Lab (1st floor, no room number) [address] * Lipase (10/21/2024 2:30 PM CDT) Pathologist [facility] Lipase 36 13 - 60 U/L 10/21/2024 3:41 PM CDT RH LABORATORY Blood BLOOD SPECIMEN / Unknown Venipuncture / Unknown 10/21/2024 2:30 PM CDT 10/21/2024 3:14 PM CDT Shira Valdez MD LAB - BLOOD ORDE GURPREET Final Result LABORATORY [facility] [address] Lab (1st floor, no room number) [address] * Influenza A/B, RSV and SARS-CoV2 PCR (COVID-19) Nasopharyngeal (10/17/2024 10:34 PM CDT) Influenza A PCR Negative Negative 10/17/2024 11:23 PM CDT LABORATORY Influenza B PCR Negative Negative 10/17/2024 11:23 PM CDT RH LABORATORY RSV PCR Negative Negative 10/17/2024 11:23 PM CDT RH LABORATORY SARS CoV2 PCR Negative Negative 10/17/2024 11:23 PM CDT RH LABORATORY Comment:NEGATIVE: SARS-CoV-2 (COVID-19) RNA not detected, presumed negative. Swab NASOPHARYNGEAL STRUCTURE / Unknown Non-blood Collection / Unknown 10/17/2024 10:34 PM CDT 10/17/2024 10:38 PM CDT Narrative [facility] LABORATORY - 10/17/2024 11:23 PM CDT Testing was performed using the Xpert Xpress CoV2/Flu/RSV Assay on the Digital [employer] Instrument. This test should be ordered for [...] management. This test was validated by the [facility] [employer]. These laboratories are certified under the Clinical Laboratory Improvement Amendments of 1988 (CLIA-88) as qualified to perfom high complexity laboratory testing. Rodo Jackson MD LAB - MICRO GENER AL ORDERABLES Final Result LABORATORY [facility] [address] Lab (1st floor, no room number) [place] [address], [facility] * (ABNORMAL) Blood gas venous (10/17/2024 10:33 PM CDT) pH Venous 7.38 7.32 - 7.43 10/17/2024 11:10 PM CDT RH LABORATORY pCO2 Venous 51(H) 40 - 50 mm Hg 10/17/2024 11:10 PM CDT [facility] LABORATORY pO2 Venous 36 25 - 47 mm Hg 10/17/2024 11:10 PM CDT [facility] LABORATORY Bicarbonate Venous 30(H) 21 - 28 mmol/L 10/17/2024 11:10 PM CDT RH LABORATORY Base Excess/Deficit Venous 3.7(H) -3.0 - 3.0 mmol/L 10/17/2024 11:10 PM CDT [facility] LABORATORY FIO2 21 SUE 10/17/2024 11:10 PM CDT [facility] LABORATORY Oxyhemoglobin Venous 65(L) 70 - 75 % 10/17/2024 11:10 PM CDT [facility] LAB[facility] O2 Sat, Venous 65.4(L) 70.0 - 75.0 % 10/17/2024 11:10 PM CDT [facility] LABORATORY Blood, venous VENOUS LINE / Unknown Venipuncture / Unknown 10/17/2024 10:33 PM CDT 10/17/2024 10:38 PM CDT Narrative [facility] LABORATORY - 10/17/2024 11:10 PM CDT In healthy individuals, oxyhemoglobin (O2Hb) and oxygen saturation (SO2) are approximately equal. In the presence of dyshemoglobins, oxyhemoglobin can be considerably lower than oxygen saturation. us Rodo Jackson MD LAB - BLOOD ORDER MARIE Final Result [facility] Lab [address] Lab (1st floor, no room number) [place] [address] * Extra Purple Top Tube (10/17/2024 9:29 PM CDT) Hold Specimen [facility] 10/17/2024 10:46 PM CDT RH LABORATORY Blood STRUCTURE OF RIGHT HAND / Unknown Venipuncture / Unknown 10/17/2024 9:29 PM CDT 10/17/2024 9:39 PM CDT us Rodo Jackson MD LAB - BLOOD ORDER MARIE Final Result [facility] Lab [address] [employer] Lab (1st floor, no room number) [place] [address] * Extra Green Top ([place] Heparin) Tube (10/17/2024 9:29 PM CDT) Only the most recent of2 resultswithin the time period is included. Hold Specimen [facility] 10/17/2024 10:46 PM CDT LABORATORY Blood STRUCTURE OF RIGHT HAND / Unknown Venipuncture / Unknown 10/17/2024 9:29 PM CDT 10/17/2024 9:39 PM CDT us Rodo Jackson MD LAB - BLOOD ORDER MARIE Final Result [facility] Acute Care Lab [address] Lab (1st floor, no room number) [place] [address] * XR Foot RT G/E 3 vw (10/12/2024 10:40 AM CDT) Anatomical Region Laterality Modality Foot, Ankle Right Computed Radiogr aphy 10/12/2024 10:4 0 AM CDT Impressions 10/12/2024 9:31 PM CDT IMPRESSION: Pes planus and hindfoot valgus. 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 Possible old healed fracture of the proximal fifth metatarsal. No acute fracture. Narrative 10/12/2024 9:31 PM CDT EXAM: XR FOOT RIGHT G/E 3 VIEWS LOCATION: [facility]??? DATE: 10/12/2024 INDICATION: Chronic foot pain, right, Chronic foot pain, right COMPARISON: None. Procedure Note Lyndon Murray DO - 10/12/2024 EXAM: XR FOOT RIGHT G/E 3 VIEWS LOCATION: [facility]??? DATE: 10/12/2024 INDICATION: Chronic foot pain, right, Chronic foot pain, right COMPARISON: None. IMPRESSION: Pes planus and hindfoot valgus. Multifocal degenerativearthrosis of the midfoot and forefoot. Possible old healed fracture of theproximal fifth metatarsal. No acute fracture. us Williams Allen MD IMG DIAGNOSTIC IMAGING ORDE RABZAID Final Result * XR Lumbar Spine G/E 4 Views (10/10/2024 12:28 PM CDT) Anatomical Region Laterality Modality Spine Computed Radiogr aphy 10/10/2024 12:2 8 PM CDT Impressions 10/10/2024 8:10 PM CDT IMPRESSION: Vertebral body heights are maintained. Mild dextrocurvature of the upper lumbar spine. Grade 1 anterolisthesis of L4 on L5. No abnormal motion on flexion or extension. Narrative 10/10/2024 8:10 PM CDT EXAM: XR LUMBAR SPINE G/E 4 VIEWS LOCATION: [facility] DATE: 10/10/2024 INDICATION: ap, lateral, flexion, extension COMPARISON: None. Procedure Note Victor Manuel Moreno MD - 10/10/2024 EXAM: XR LUMBAR SPINE G/E 4 VIEWS LOCATION: [facility] DATE: 10/10/2024 INDICATION: ap, lateral, flexion, extension COMPARISON: None. IMPRESSION: Vertebral body heights are maintained. Mild dextrocurvature ofthe upper lumbar spine. Grade 1 anterolisthesis of L4 on L5. No abnormalmotion on flexion or extension. Georgie Anguiano PA-C IMG DIAGNOSTIC IMAGING ORDERA BLES Final Result * MR Brain w/o & w Contrast (10/06/2024 11:33 PM CDT) Anatomical Region Laterality Modality Head, SUBRAD MR NEURO, UMP MR NEURO, RAD MR Magnetic Resonance 10/06/2024 11:3 3 PM CDT Impressions 10/06/2024 11:53 PM CDT IMPRESSION: HEAD MRI: 1. No discrete mass lesion, hemorrhage or focal area suggestive of acute ischemia. 2. No abnormal signal or abnormal enhancement. HEAD MRA: 1. No discrete vessel occlusion, significant stenosis, aneurysm or high flow vascular malformation involving the arteries of the [place]. NECK MRA: 1. Normal configuration of the great vessels off the aortic arch with no significant stenosis of their origins. 2. No significant stenosis or irregularity involving the arteries of the neck. 3. No radiographic evidence of dissection. Narrative 10/06/2024 11:53 PM CDT EXAM: MR BRAIN W/O and W CONTRAST, MRA NECK (CAROTIDS) W/O and W CONTRAST, MRA BRAIN ([place]) W/O CONTRAST LOCATION: [facility] DATE: 10/06/2024 INDICATION: RUE paresthesias, vision changes >24 hours, now left foot paresthesias COMPARISON: 02/17/2024. CONTRAST: 10 mLGadavist TECHNIQUE: 1) Routine multiplanar multisequence head MRI without intravenous contrast. 2) 3D odcx-rn-akkwyt head MRA without intravenous contrast. 3) Neck MRA without and with IV contrast. Stenosis measurements made according to NASCET criteria unless otherwise specified. FINDINGS: HEAD MRI: INTRACRANIAL CONTENTS: On the diffusion-weighted images there is no evidence of acute ischemia or restricted diffusion. There is no evidence of acute ischemia or restricted diffusion. There is no discrete mass lesion or midline shift. There is no acute extra-axial fluid collection or acute intraparenchymal hemorrhage. There are appropriate flow voids within the cavernous portions of the internal carotid arteries and the basilar artery. On the FLAIR and T2-weighted images there is no significant abnormal signal noted within the brain parenchyma. There is one tiny focus of high signal on the FLAIR images within the subcortical white matter of the posterior left frontal lobe most likely related to the prior insult which shows calcification on head CT. The ventricular system, basal cisterns and the cortical sulci are within normal limits for the patient's age. Following the administration of contrast no abnormal enhancement is visualized. There is no evidence of cerebellar tonsillar ectopia. The corpus callosum and the sella region have appropriate configuration and signal intensity for the patient's age. The orbit regions are unremarkable. There are a few small mucous retention cysts maxillary sinuses bilaterally. The mastoid air cells and the middle ear regions are clear. HEAD MRA: ANTERIOR CIRCULATION: No stenosis/occlusion, aneurysm, or high flow vascular malformation. There is a patent anterior communicating artery with associated with a hypoplastic A1 segment of the right anterior cerebral artery. POSTERIOR CIRCULATION: No stenosis/occlusion, aneurysm, or high flow vascular malformation. Left vertebral artery is dominant but both vertebral arteries connect up to the basilar artery. NECK MRA: RIGHT CAROTID: No measurable stenosis or dissection. LEFT CAROTID: No measurable stenosis or dissection. VERTEBRAL ARTERIES: No focal stenosis or dissection. Left vertebral artery dominant and both vertebral arteries are patent throughout the neck region. AORTIC ARCH: Classic aortic arch anatomy with no significant stenosis at the origin of the great vessels. Procedure Note Ping Alvarez MD - 10/06/2024 EXAM: MR BRAIN W/O and W CONTRAST, MRA NECK (CAROTIDS) W/O and W CONTRAST,MRA BRAIN ([place]) W/O CONTRAST LOCATION: [facility] DATE: 10/06/2024 INDICATION: RUE paresthesias, vision changes >24 hours, now left footparesthesias COMPARISON: 02/17/2024. CONTRAST: 10 mLGadavist TECHNIQUE: 1) Routine multiplanar multisequence head MRI without intravenouscontrast. 2) 3D pyys-fo-ncvfnl head MRA without intravenous contrast. 3) Neck MRA without and with IV contrast. Stenosis measurements madeaccording to NASCET criteria unless otherwise specified. FINDINGS: HEAD MRI: INTRACRANIAL CONTENTS: On the diffusion-weighted images there is noevidence of acute ischemia or restricted diffusion. There is no evidenceof acute ischemia or restricted diffusion. There is no discrete masslesion or midline shift. There is no acute extra-axial fluid collection or acute intraparenchymal hemorrhage. Thereare appropriate flow voids within the cavernous portions of the internalcarotid arteries and the basilar artery. On the FLAIR and T2-weightedimages there is no significant abnormal signal noted within the brain parenchyma. There is one tiny focusof high signal on the FLAIR images within the subcortical white matter ofthe posterior left frontal lobe most likely related to the prior insultwhich shows calcification on head CT. The ventricular system, basal cisterns and the cortical sulci arewithin normal limits for the patient's age. Following the administrationof contrast no abnormal enhancement is visualized. There is no evidence of cerebellar tonsillar ectopia. The corpus callosumand the sella region have appropriate configuration and signal intensityfor the patient's age. The orbit regions are unremarkable. There are a fewsmall mucous retention cysts maxillary sinuses bilaterally. The mastoid air cells and the middle earregions are clear. HEAD MRA: ANTERIOR CIRCULATION: No stenosis/occlusion, aneurysm, or high flowvascular malformation. There is a patent anterior communicating arterywith associated with a hypoplastic A1 segment of the right anteriorcerebral artery. POSTERIOR CIRCULATION: No stenosis/occlusion, aneurysm, or high flowvascular malformation. Left vertebral artery is dominant but bothvertebral arteries connect up to the basilar artery. NECK MRA: RIGHT CAROTID: No measurable stenosis or dissection. LEFT CAROTID: No measurable stenosis or dissection. VERTEBRAL ARTERIES: No focal stenosis or dissection. Left vertebral arterydominant and both vertebral arteries are patent throughout the neckregion. AORTIC ARCH: Classic aortic arch anatomy with no significant stenosis atthe origin of the great vessels. IMPRESSION: HEAD MRI: 1. No discrete mass lesion, hemorrhage or focal area suggestive of acuteischemia. 2. No abnormal signal or abnormal enhancement. HEAD MRA: 1. No discrete vessel occlusion, significant stenosis, aneurysm or highflow vascular malformation involving the arteries of the [place]. NECK MRA: 1. Normal configuration of the great vessels off the aortic arch with nosignificant stenosis of their origins. 2. No significant stenosis or irregularity involving the arteries of theneck. 3. No radiographic evidence of dissection. us Nanette Buckley MD IMG MRI ORDERABLES Final Resul t * MRA Angiogram Neck w/o & w Contrast (10/06/2024 11:33 PM CDT) Anatomical Region Laterality Modality Neck, SUBRAD MR NEURO, UMP MR NEURO, RAD MR Magnetic Resonance 10/06/2024 11:3 3 PM CDT Impressions 10/06/2024 11:53 PM CDT IMPRESSION: HEAD MRI: 1. No discrete mass lesion, hemorrhage or focal area suggestive of acute ischemia. 2. No abnormal signal or abnormal enhancement. HEAD MRA: 1. No discrete vessel occlusion, significant stenosis, aneurysm or high flow vascular malformation involving the arteries of the [place]. NECK MRA: 1. Normal configuration of the great vessels off the aortic arch with no significant stenosis of their origins. 2. No significant stenosis or irregularity involving the arteries of the neck. 3. No radiographic evidence of dissection. Narrative 10/06/2024 11:53 PM CDT EXAM: MR BRAIN W/O and W CONTRAST, MRA NECK (CAROTIDS) W/O and W CONTRAST, MRA BRAIN ([place]) W/O CONTRAST LOCATION: [facility] DATE: 10/06/2024 INDICATION: RUE paresthesias, vision changes >24 hours, now left foot paresthesias COMPARISON: 02/17/2024. CONTRAST: 10 mLGadavist TECHNIQUE: 1) Routine multiplanar multisequence head MRI without intravenous contrast. 2) 3D obah-sy-cwrivw head MRA without intravenous contrast. 3) Neck MRA without and with IV contrast. Stenosis measurements made according to NASCET criteria unless otherwise specified. FINDINGS: HEAD MRI: INTRACRANIAL CONTENTS: On the diffusion-weighted images there is no evidence of acute ischemia or restricted diffusion. There is no evidence of acute ischemia or restricted diffusion. There is no discrete mass lesion or midline shift. There is no acute extra-axial fluid collection or acute intraparenchymal hemorrhage. There are appropriate flow voids within the cavernous portions of the internal carotid arteries and the basilar artery. On the FLAIR and T2-weighted images there is no significant abnormal signal noted within the brain parenchyma. There is one tiny focus of high signal on the FLAIR images within the subcortical white matter of the posterior left frontal lobe most likely related to the prior insult which shows calcification on head CT. The ventricular system, basal cisterns and the cortical sulci are within normal limits for the patient's age. Following the administration of contrast no abnormal enhancement is visualized. There is no evidence of cerebellar tonsillar ectopia. The corpus callosum and the sella region have appropriate configuration and signal intensity for the patient's age. The orbit regions are unremarkable. There are a few small mucous retention cysts maxillary sinuses bilaterally. The mastoid air cells and the middle ear regions are clear. HEAD MRA: ANTERIOR CIRCULATION: No stenosis/occlusion, aneurysm, or high flow vascular malformation. There is a patent anterior communicating artery with associated with a hypoplastic A1 segment of the right anterior cerebral artery. POSTERIOR CIRCULATION: No stenosis/occlusion, aneurysm, or high flow vascular malformation. Left vertebral artery is dominant but both vertebral arteries connect up to the basilar artery. NECK MRA: RIGHT CAROTID: No measurable stenosis or dissection. LEFT CAROTID: No measurable stenosis or dissection. VERTEBRAL ARTERIES: No focal stenosis or dissection. Left vertebral artery dominant and both vertebral arteries are patent throughout the neck region. AORTIC ARCH: Classic aortic arch anatomy with no significant stenosis at the origin of the great vessels. Procedure Note Ping Alvarez MD - 10/06/2024 EXAM: MR BRAIN W/O and W CONTRAST, MRA NECK (CAROTIDS) W/O and W CONTRAST,MRA BRAIN ([place]) W/O CONTRAST LOCATION: [facility] DATE: 10/06/2024 INDICATION: RUE paresthesias, vision changes >24 hours, now left footparesthesias COMPARISON: 02/17/2024. CONTRAST: 10 mLGadavist TECHNIQUE: 1) Routine multiplanar multisequence head MRI without intravenouscontrast. 2) 3D qwid-nl-haaawj head MRA without intravenous contrast. 3) Neck MRA without and with IV contrast. Stenosis measurements madeaccording to NASCET criteria unless otherwise specified. FINDINGS: HEAD MRI: INTRACRANIAL CONTENTS: On the diffusion-weighted images there is noevidence of acute ischemia or restricted diffusion. There is no evidenceof acute ischemia or restricted diffusion. There is no discrete masslesion or midline shift. There is no acute extra-axial fluid collection or acute intraparenchymal hemorrhage. Thereare appropriate flow voids within the cavernous portions of the internalcarotid arteries and the basilar artery. On the FLAIR and T2-weightedimages there is no significant abnormal signal noted within the brain parenchyma. There is one tiny focusof high signal on the FLAIR images within the subcortical white matter ofthe posterior left frontal lobe most likely related to the prior insultwhich shows calcification on head CT. The ventricular system, basal cisterns and the cortical sulci arewithin normal limits for the patient's age. Following the administrationof contrast no abnormal enhancement is visualized. There is no evidence of cerebellar tonsillar ectopia. The corpus callosumand the sella region have appropriate configuration and signal intensityfor the patient's age. The orbit regions are unremarkable. There are a fewsmall mucous retention cysts maxillary sinuses bilaterally. The mastoid air cells and the middle earregions are clear. HEAD MRA: ANTERIOR CIRCULATION: No stenosis/occlusion, aneurysm, or high flowvascular malformation. There is a patent anterior communicating arterywith associated with a hypoplastic A1 segment of the right anteriorcerebral artery. POSTERIOR CIRCULATION: No stenosis/occlusion, aneurysm, or high flowvascular malformation. Left vertebral artery is dominant but bothvertebral arteries connect up to the basilar artery. NECK MRA: RIGHT CAROTID: No measurable stenosis or dissection. LEFT CAROTID: No measurable stenosis or dissection. VERTEBRAL ARTERIES: No focal stenosis or dissection. Left vertebral arterydominant and both vertebral arteries are patent throughout the neckregion. AORTIC ARCH: Classic aortic arch anatomy with no significant stenosis atthe origin of the great vessels. IMPRESSION: HEAD MRI: 1. No discrete mass lesion, hemorrhage or focal area suggestive of acuteischemia. 2. No abnormal signal or abnormal enhancement. HEAD MRA: 1. No discrete vessel occlusion, significant stenosis, aneurysm or highflow vascular malformation involving the arteries of the [place]. NECK MRA: 1. Normal configuration of the great vessels off the aortic arch with nosignificant stenosis of their origins. 2. No significant stenosis or irregularity involving the arteries of theneck. 3. No radiographic evidence of dissection. us Nanette Buckley MD IMG MRI ORDERABLES Final Resul t * MRA Angiogram Head w/o Contrast (10/06/2024 11:33 PM CDT) Anatomical Region Laterality Modality Head, SUBRAD MR NEURO, UMP MR NEURO, RAD MR Magnetic Resonance 10/06/2024 11:3 3 PM CDT Impressions 10/06/2024 11:53 PM CDT IMPRESSION: HEAD MRI: 1. No discrete mass lesion, hemorrhage or focal area suggestive of acute ischemia. 2. No abnormal signal or abnormal enhancement. HEAD MRA: 1. No discrete vessel occlusion, significant stenosis, aneurysm or high flow vascular malformation involving the arteries of the [place]. NECK MRA: 1. Normal configuration of the great vessels off the aortic arch with no significant stenosis of their origins. 2. No significant stenosis or irregularity involving the arteries of the neck. 3. No radiographic evidence of dissection. Narrative 10/06/2024 11:53 PM CDT EXAM: MR BRAIN W/O and W CONTRAST, MRA NECK (CAROTIDS) W/O and W CONTRAST, MRA BRAIN ([place]) W/O CONTRAST LOCATION: [facility] DATE: 10/06/2024 INDICATION: RUE paresthesias, vision changes >24 hours, now left foot paresthesias COMPARISON: 02/17/2024. CONTRAST: 10 mLGadavist TECHNIQUE: 1) Routine multiplanar multisequence head MRI without intravenous contrast. 2) 3D dpnd-fw-wzoirq head MRA without intravenous contrast. 3) Neck MRA without and with IV contrast. Stenosis measurements made according to NASCET criteria unless otherwise specified. FINDINGS: HEAD MRI: INTRACRANIAL CONTENTS: On the diffusion-weighted images there is no evidence of acute ischemia or restricted diffusion. There is no evidence of acute ischemia or restricted diffusion. There is no discrete mass lesion or midline shift. There is no acute extra-axial fluid collection or acute intraparenchymal hemorrhage. There are appropriate flow voids within the cavernous portions of the internal carotid arteries and the basilar artery. On the FLAIR and T2-weighted images there is no significant abnormal signal noted within the brain parenchyma. There is one tiny focus of high signal on the FLAIR images within the subcortical white matter of the posterior left frontal lobe most likely related to the prior insult which shows calcification on head CT. The ventricular system, basal cisterns and the cortical sulci are within normal limits for the patient's age. Following the administration of contrast no abnormal enhancement is visualized. There is no evidence of cerebellar tonsillar ectopia. The corpus callosum and the sella region have appropriate configuration and signal intensity for the patient's age. The orbit regions are unremarkable. There are a few small mucous retention cysts maxillary sinuses bilaterally. The mastoid air cells and the middle ear regions are clear. HEAD MRA: ANTERIOR CIRCULATION: No stenosis/occlusion, aneurysm, or high flow vascular malformation. There is a patent anterior communicating artery with associated with a hypoplastic A1 segment of the right anterior cerebral artery. POSTERIOR CIRCULATION: No stenosis/occlusion, aneurysm, or high flow vascular malformation. Left vertebral artery is dominant but both vertebral arteries connect up to the basilar artery. NECK MRA: RIGHT CAROTID: No measurable stenosis or dissection. LEFT CAROTID: No measurable stenosis or dissection. VERTEBRAL ARTERIES: No focal stenosis or dissection. Left vertebral artery dominant and both vertebral arteries are patent throughout the neck region. AORTIC ARCH: Classic aortic arch anatomy with no significant stenosis at the origin of the great vessels. Procedure Note Ping Alvarez MD - 10/06/2024 EXAM: MR BRAIN W/O and W CONTRAST, MRA NECK (CAROTIDS) W/O and W CONTRAST,MRA BRAIN (P[place]) W/O CONTRAST LOCATION: [facility] DATE: 10/06/2024 INDICATION: RUE paresthesias, vision changes >24 hours, now left footparesthesias COMPARISON: 02/17/2024. CONTRAST: 10 mLGadavist TECHNIQUE: 1) Routine multiplanar multisequence head MRI without intravenouscontrast. 2) 3D rody-yc-bwwazt head MRA without intravenous contrast. 3) Neck MRA without and with IV contrast. Stenosis measurements madeaccording to NASCET criteria unless otherwise specified. FINDINGS: HEAD MRI: INTRACRANIAL CONTENTS: On the diffusion-weighted images there is noevidence of acute ischemia or restricted diffusion. There is no evidenceof acute ischemia or restricted diffusion. There is no discrete masslesion or midline shift. There is no acute extra-axial fluid collection or acute intraparenchymal hemorrhage. Thereare appropriate flow voids within the cavernous portions of the internalcarotid arteries and the basilar artery. On the FLAIR and T2-weightedimages there is no significant abnormal signal noted within the brain parenchyma. There is one tiny focusof high signal on the FLAIR images within the subcortical white matter ofthe posterior left frontal lobe most likely related to the prior insultwhich shows calcification on head CT. The ventricular system, basal cisterns and the cortical sulci arewithin normal limits for the patient's age. Following the administrationof contrast no abnormal enhancement is visualized. There is no evidence of cerebellar tonsillar ectopia. The corpus callosumand the sella region have appropriate configuration and signal intensityfor the patient's age. The orbit regions are unremarkable. There are a fewsmall mucous retention cysts maxillary sinuses bilaterally. The mastoid air cells and the middle earregions are clear. HEAD MRA: ANTERIOR CIRCULATION: No stenosis/occlusion, aneurysm, or high flowvascular malformation. There is a patent anterior communicating arterywith associated with a hypoplastic A1 segment of the right anteriorcerebral artery. POSTERIOR CIRCULATION: No stenosis/occlusion, aneurysm, or high flowvascular malformation. Left vertebral artery is dominant but bothvertebral arteries connect up to the basilar artery. NECK MRA: RIGHT CAROTID: No measurable stenosis or dissection. LEFT CAROTID: No measurable stenosis or dissection. VERTEBRAL ARTERIES: No focal stenosis or dissection. Left vertebral arterydominant and both vertebral arteries are patent throughout the neckregion. AORTIC ARCH: Classic aortic arch anatomy with no significant stenosis atthe origin of the great vessels. IMPRESSION: HEAD MRI: 1. No discrete mass lesion, hemorrhage or focal area suggestive of acuteischemia. 2. No abnormal signal or abnormal enhancement. HEAD MRA: 1. No discrete vessel occlusion, significant stenosis, aneurysm or highflow vascular malformation involving the arteries of the [place]. NECK MRA: 1. Normal configuration of the great vessels off the aortic arch with nosignificant stenosis of their origins. 2. No significant stenosis or irregularity involving the arteries of theneck. 3. No radiographic evidence of dissection. Nanette Buckley MD IMG MRI ORDERABLES Final Resul t * (ABNORMAL) Hemoglobin A1c (09/27/2024 11:11 AM CDT) Estimated Average Glucose 163(H) <117 mg/dL 09/27/2024 11:16 AM CDT [facility] Hemoglobin A1C 7.3(H) 0.0 - 5.6 % 09/27/2024 11:16 AM CDT [facility] Comment: Normal <5.7% Prediabetes 5.7-6.4% Diabetes 6.5% or higher Note: Adopted from ADA consensus guidelines. Blood BLOOD SPECIMEN / Unknown Venipuncture / Unknown 09/27/2024 11:11 AM CDT 09/27/2024 11:11 AM CDT Va Glez MD LAB - BLOOD ORDERABLES Final Res ult [facility] [address] [place] [address] (no room number, 1st floor of clinic) [place] [address], [facility] * XR Cervical Spine Complete w Obl & Flex/Ext (09/26/2024 11:55 AM CDT) Anatomical Region Laterality Modality Spine Computed Radiogr aphy 09/26/2024 11:5 5 AM CDT Impressions 09/27/2024 7:30 AM CDT IMPRESSION: Vertebral body heights are unremarkable. Advanced C5-C6 spondylosis, with intervertebral disc height loss and endplate spurring. There is mild C4-C5 spondylosis, as well. There is moderate multilevel facet arthropathy. On the left, there is uqjr-ns-pwrkgrub bony neural foraminal stenosis at C5-C6. On the right, there is ajxydkpk-zb-npfymj C3-C4 and moderate C4-C5 bony neural foraminal stenosis. Mild reversal of the normal cervical lordosis. In the neutral position, there is C3-C4 anterolisthesis of 1.5 mm, C5-C6 retrolisthesis of 3 mm, and C7-T1 anterolisthesis of 1 mm. In the flexed position, C3-C4 anterolisthesis measures 3 mm, C4-C5 anterolisthesis of 2 mm is elicited, C5-C6 retrolisthesis measures 1.5 mm, and C7-T1 anterolisthesis again measures 1 mm. In the extended position, C3-C4 anterolisthesis measures 2 mm, C4-C5 anterolisthesis measures 1 mm, C5-C6 retrolisthesis measures 4 mm, and C7-T1 anterolisthesis measures 1 mm. Unremarkable prevertebral soft tissues. The visualized lung apices are well aerated. Narrative 09/27/2024 7:30 AM CDT EXAM: XR CERVICAL SPINE COMPLETE W OBL and FLEX/EXT LOCATION: [facility] DATE: 09/26/2024 INDICATION: Degenerative disc disease, cervical, spondylolisthesis of cervical region. COMPARISON: MRI 03/22/2024. Procedure Note Eleazar Barrios MD - 09/27/2024 EXAM: XR CERVICAL SPINE COMPLETE W OBL and FLEX/EXT LOCATION: [facility] DATE: 09/26/2024 INDICATION: Degenerative disc disease, cervical, spondylolisthesis ofcervical region. COMPARISON: MRI 03/22/2024. IMPRESSION: Vertebral body heights are unremarkable. Advanced C5-C6 spondylosis, with intervertebral disc height loss andendplate spurring. There is mild C4-C5 spondylosis, as well. There ismoderate multilevel facet arthropathy. On the left, there is ukeb-sx-zicqknqj bony neural foraminal stenosis atC5-C6. On the right, there is jvidhjjs-hk-dauscv C3-C4 and moderate C4-C5bony neural foraminal stenosis. Mild reversal of the normal cervical lordosis. In the neutral position, there is C3-C4 anterolisthesis of 1.5 mm, C5-N5epvagvdmrufzuz of 3 mm, and C7-T1 anterolisthesis of 1 mm. In the flexed position, C3-C4 anterolisthesis measures 3 mm, C4- R9kftsezlxokmntev of 2 mm is elicited, C5-C6 retrolisthesis measures 1.5 mm,and C7-T1 anterolisthesis again measures 1 mm. In the extended position, C3-C4 anterolisthesis measures 2 mm, C4- A6cyzhpoutuxhozdv measures 1 mm, C5-C6 retrolisthesis measures 4 mm, andC7-T1 anterolisthesis measures 1 mm. Unremarkable prevertebral soft tissues. The visualized lung apices are well aerated. us Ravi Arango MD IMG DIAGNOSTIC IMAGING ORDERABL ES Final Result * XR Knee Right G/E 4 Views (09/17/2024 11:31 AM CDT) Anatomical Region Laterality Modality Thigh, Knee, Leg Right Computed Radiog cornelius 09/17/2024 11:3 1 AM CDT Impressions 09/18/2024 6:11 AM CDT IMPRESSION: Tricompartmental arthritic changes right knee which are severe in the medial compartment where there is xyqq-gm-qenq contact. There is no evidence of an acute displaced fracture. There is a joint effusion. Views of the left knee show degenerative changes which are also severe in the medial compartment. Narrative 09/18/2024 6:11 AM CDT EXAM: XR KNEE RIGHT G/E 4 VIEWS LOCATION: [facility] DATE: 09/17/2024 INDICATION: Primary osteoarthritis of right knee COMPARISON: 12/14/2022. Procedure Note Yaron Gibbons MD - 09/18/2024 EXAM: XR KNEE RIGHT G/E 4 VIEWS LOCATION: [facility] DATE: 09/17/2024 INDICATION: Primary osteoarthritis of right knee COMPARISON: 12/14/2022. IMPRESSION: Tricompartmental arthritic changes right knee which are severein the medial compartment where there is zdio-ma-rzci contact. There is noevidence of an acute displaced fracture. There is a joint effusion. Views of the left knee show degenerative changes which are also severe inthe medial compartment. Fabrice Moon MD IMG DIAGNOSTIC IMAGING ORDERABLE S Final Result * [place] ARTHROCENTESIS ASPIR&/INJ MAJOR JT/BURSA W/US (09/13/2024 3:53 PM CDT) Narrative Gaby Vila DO - 09/13/2024 3:53 PM CDT Gaby Vila DO 09/13/2024 3:56 PM Large Joint Injection/Arthocentesis: R knee joint Date/Time: 09/13/2024 3:53 PM Performed by: Gaby Vila DO Authorized by: Gaby Vila DO Indications: Pain Needle Size: 18 G Guidance: ultrasound Approach: Superolateral Location: Knee Medications: 40 mg triamcinolone 40 MG/ML; 3 mL lidocaine (PF) 1 %; 4 mL ROPivacaine 5 MG/ML Aspirate amount (mL): 7 Aspirate: Cloudy and turbid Aspirate analysis: sent for lab analysis Outcome: Tolerated well, no immediate complications Procedure discussed: discussed risks, benefits, and alternatives Consent Given by: Patient Timeout: timeout called immediately prior to procedure Prep: patient was prepped and draped in usual sterile fashion 1ml of 8.4% Sodium Bicarbonate solution was used to buffer the local numbing agent for today's injection Ultrasound was used to ensure safe and accurate needle placement and injection. Ultrasound images of the procedure were permanently stored. us Gaby Vila DO PROCEDURE/MINOR SURGICAL ORDERABLES Final Result * Differential Body Fluid (09/13/2024 3:43 PM CDT) % Neutrophils 5 % SUE 09/13/2024 6:27 PM CDT [facility] % Lymphocytes 27 % SUE 09/13/2024 6:27 PM CDT [facility] % Monocyte/Macroph ages 56 % SUE 09/13/2024 6:27 PM CDT [facility] % Lining Cells 12 % SUE 09/13/2024 6:27 PM CDT [facility] Body fluid, unsp STRUCTURE OF RIGHT KNEE REGION / Unknown Non-blood Collection / Unknown 09/13/2024 3:43 PM CDT 09/13/2024 4:13 PM CDT Narrative [facility] - 09/13/2024 6:27 PM CDT No reference ranges have been established. This result should be interpreted in the context of the patient's clinical condition and compared to simultaneous measurement in the patient's blood. Gaby Vila DO LAB - BODY FLUIDS ORDERA BLES Final Result Performing Organization Address [facility] Co de Phone Number [facility] [email or web address] [employer] Lab (1st floor, no room number) [place] [address], [facility] * (ABNORMAL) Cell Count Body Fluid (09/13/2024 3:43 PM CDT) Color Harmony(A) Colorless, Yellow SUE 09/13/2024 6:27 PM CDT LABORATORY Clarity Hazy(A) Clear SUE 09/13/2024 6:27 PM CDT [facility] Cell Count Fluid Source Knee, Right 09/13/2024 6:27 PM CDT [facility] Total Nucleated Cells 107 /uL SUE 09/13/2024 6:27 PM CDT LABORATORY Body fluid, unsp STRUCTURE OF RIGHT KNEE REGION / Unknown Non-blood Collection / Unknown 09/13/2024 3:43 PM CDT 09/13/2024 4:13 PM CDT Narrative LABORATORY - 09/13/2024 6:27 PM CDT No reference ranges have been established. This result should be interpreted in the context of the patient's clinical condition and compared to simultaneous measurement in the patient's blood. Gaby Vila DO LAB - BODY FLUIDS ORDERA BLES Final Result Performing Organization Address [facility] Co de Phone Number [facility] [address] Lab (1st floor, no room number) [place] [address], [facility] * Crystal ID Synovial Fluid (09/13/2024 3:43 PM CDT) Crystals Analysis No clinically significant crystals seen. No clinically significant crystals seen. SUE 09/13/2024 6:28 PM CDT LABORATORY Synovial fluid STRUCTURE OF RIGHT KNEE REGION / Unknown Non-blood Collection / Unknown 09/13/2024 3:43 PM CDT 09/13/2024 4:12 PM CDT us Gaby Vila DO LAB - BODY FLUIDS ORDERA BLES Final Result LABORATORY [facility] [address] 1st floor, [address] [place] [address], [facility] [phone] * (ABNORMAL) UA Macroscopic with reflex to Microscopic and Culture - Clinic Collect (09/08/2024 1:21 PM CDT) Color Urine Yellow Colorless, Straw, Light Yellow, Yellow 09/08/2024 1:27 PM CDT LABORATORY Appearance Urine Clear Clear 09/09/19 1:27 PM CDT [facility] Glucose Urine 500(A) Negative mg/dL 09/08/2024 1:27 PM CDT [facility] Bilirubin Urine Negative Negative 1:27 PM CDT [facility] Ketones Urine Negative Negative mg/dL 09/08/2024 1:27 PM CDT [facility] Specific [place] Urine 1.020 1.003 - 1.035 09/08/2024 1:27 PM CDT [facility] Blood Urine Negative Negative 09/08/2024 1:27 PM CDT [facility] pH Urine 7.0 5.0 - 7.0 09/08/2024 1:27 PM CDT [facility] Protein Albumin Urine Negative Negative mg/dL 09/08/2024 1:27 PM CDT [facility] Urobilinogen Urine 0.2 0.2, 1.0 E.U./dL 09/08/2024 1:27 PM CDT [facility] Nitrite Urine Negative Negative 09/08/2024 1:27 PM CDT [facility] Leukocyte Esterase Urine Negative Negative 09/08/2024 1:27 PM CDT LABORATORY Urine URINE SPECIMEN OBTAINED BY CLEAN CATCH PROCEDURE / Unknown Non-blood Collection / Unknown 09/08/2024 1:21 PM CDT 09/08/2024 1:23 PM CDT Narrative LABORATORY - 09/08/2024 1:27 PM CDT Microscopic not indicated [facility] - URINE ORDERABLES Demetria l Result LABORATORY [facility] [address] [facility] Lab (no room number, 1st floor of [facility]) [place] [id number] * (ABNORMAL) Glucose, whole blood (09/08/2024 1:06 PM CDT) Pathologist [facility] Glucose Whole Blood 173(H) 60 - 99 mg/dL 09/08/2024 1:09 PM CDT LABORATORY Blood BLOOD SPECIMEN / Unknown Venipuncture / Unknown 09/08/2024 1:06 PM CDT 09/08/2024 1:06 PM CDT [facility] LAB - BLOOD ORDERABLES Demetria l Result Performing Organization Address City/[facility]/ZIP Co de Phone Number LABORATORY [address] (no room number, 1st floor of [facility]) [place] [address] * Hepatitis C antibody (04/02/2024 3:20 PM [employer]) Pathologist [facility] Hepatitis C Antibody Nonreactive Nonreactive 04/02/2024 9:00 PM [employer] [facility] Comment:A nonreactive screen ing test result does not exclude the possibility of exposure to or infection with HCV. Nonreactive screening test results in individuals with prior exposure to HCV may be due to antibody levels below the limit of detection of this assay or lack of reactivity to the HCV antigens used in this assay. Patients with recent HCV infections (<3 months from time of exposure) may have false- negative HCV antibody results due to the time needed for seroconversion (average of 8 to 9 weeks). Blood BLOOD SPECIMEN / Unknown Venipuncture / Unknown 04/02/2024 3:20 PM [employer] 04/02/2024 3:20 PM [employer] us Hakeem WEBB LAB - BLOOD ORDERABLES Final Res ult [facility] [place] [facility] Lab [address] [facility], [address] [place] [address], [facility] * Lipid panel reflex to direct LDL Non-fasting (12/23/2023 1:51 PM CDT) Pathologist [facility] Cholesterol 145 <200 mg/dL 12/23/2023 9:54 PM [...] ult [facility] [place] [facility] [address] [facility], [address] [place] [address], [facility] from Last 3 Months or Most Recently [...] Mental Health Symptoms Need Improvement 04/05/19 25 Insurance [employer] MEDICARE ADVANTAGE [employer] MEDICARE ADVANTAGE [facility] [place] MEDICARE [facility] * Guarantor: Danae Devi Account Type Relation to Patient Date of Phone Billing Address Medication Therapy Self [address] [place] [address] SHANKAR WRIGHT [address] [employer] MEDICARE ADVANTAGE [facility] Advance Directives For more information, please contact: [phone] * Full Code (Latest Code Status on File) Date Activated Date Inactivated Comments 11/04/2024 4:30 PM 11/05/2024 9:35 PM All basic an d advanced life-sustaining interventions are performed as appropriate Question Answer Comments Code status determined by: Discussion with patie nt/ legal decision maker Care Teams Staffing Program Manager Relationship Specialty [place] [address] [place] [address] PCP - General Family Practice 07/11/14 [place] [address] [place] [address] Assigned PCP 12/16/11 Christy Campuzano, RJC [address] [place] [address] 7868[address] Referring Physician Family Medicine 04/22/20 Hans Cannon MD [address] [place] [address] 878802 Resident Pulmonary Disease 04/22/20 Estella Hassan, [facility] [address], [place] [phone] Pharmacist Pharmacist 05/26/20 Elaina Moreno MD [address] [place] [address] 630725 Cardiovascular & Thoracic Surgery 08/06/20 John Webb MD [address] 1957[address] Cardiovascular Disease 08/25/21 John Webb MD [address] [address] Cardiovascular Disease 08/25/21 Estella Hassan, [facility] [address] [place], [place] [address] Assigned MTM Pharmacist 12/09/21 Lindsay Carey OD [address] [facility] [place] [address] Ophthalmology 01/29/22 Richard Kam MD [address] [place] [address] 918135 Assigned Musculoskeletal Provider 08/14/22 Rosemarie Mcdowell, RN House Mover Helper Diabetes Education 03/17/23 Mitra Kendall, AEROBICS INSTRUCTOR Lead Residential Pest Control Technician Primary Care - CC 12/12/23 Lizet Mann PA-C [address] [facility] [place] [address] Assigned Cancer Care Provider 01/04/24 Ravi Brownlee MD [address] [place] [address] Assigned Pulmonology Provider 01/04/24 Manuel Ahn OD [address] [place] [address] Blood Bank Custodian 01/05/24 Thalia Charles [facility] [address] [place] [address] Pharmacist Pharmacy 01/26/24 Gaurav Valenzuela APRN LOG HAUL CHAIN FEEDER [address] [facility] 106 [place], [place] [address] Assigned Sleep Provider 02/04/24 Debbie Mann MD [address] [facility] 200 [place] [address] Cardiovascular Disease 02/24/24 Hakeem Chacko MBBS [address] [place] [address] Assigned Rheumatology Provider 04/05/24 Debbie Mann MD [address] [facility] 200 [place] [address] Assigned Heart and Vascular Provider 05/06/24 Timothy Tejada MD [address] [place] [phone] Ophthalmology 05/29/24 Timothy Tejada MD [address] [place] [address] Assigned Surgical Provider 06/03/24 Elsie Roberts APRN [employer] [address] [facility] [place] [address] [place] [place] [address] Nurse Practitioner Pain Medicine 10/16/24 Cristy Morton MD [address] [place] [address] Assigned Pediatric Specialist Provider 11/03/24 Georgie Anguiano PA-C [address] [address] Assigned Neuroscience Provider 12/04/24
--- OUTSIDE RECORDS SUMMARY | 2024-12-06 00:42 | XMS_ITS | Encounter Summary ---
Author Organization [facility] Address [address] [place] [address] Care Team Providers Care Outside Production Inspector Name Role Phone Va Glez MD Primary Care Provider Va Glez MD Unavailable Christy CampuzanoC Unavailable [phone] Hans Cannon MD Unavailable [phone] Estella Hassan [facility] Unavailable Josh Cordero MD, Madhuri Unavailable [phone] John Webb MD Unavailable [phone] John Webb MD Unavailable Estella Hassan [facility] Unavailable [phone] Lindsay Carey OD Unavailable [phone] Richard Kam MD Unavailable Gaby Vila DO Unavailable Rosemarie Mcdowell RN Unavailable Mitra Kendall RETORT PRE COOKER Unavailable [phone] Lizet Mann PA-C Unavailable Ravi Brownlee MD Unavailable Manuel Ahn OD Unavailable Thalia Charles [facility] Unavailable [phone] Gaurav Valenzuela ADMIN DIR SOUND EFFECTS MANAGER Unavailable [phone] AnabelleDaydaygina Syed OD Unavailable [phone] Debbie Mann MD Unavailable [phone] Hakeem Chacko MBBS Unavailable Debbie Mann MD Unavailable [phone] Timothy Tejada MD Unavailable [phone] Timothy Tejada MD Unavailable [phone] Elsie Roberts ADMIN DIR SOUND EFFECTS MANAGER Unavailable + Cristy Morton MD Unavailable [phone] Georgie Anguiano PA-C Unavailable [phone] Encounter Details Date Type Department Care Team (Late st Contact Info) Description 05/31/2024 MyC Medical Advice [address] [address] Nato Puga, RN Social History [...] re latives? Once a week 05/22/2024 Attends Jainism Services Not on file 05/22 Active Member [...] Answer Date Recorded PHQ-2 Score 1 03/28/2024 [facility] of Occupat ional Health - Occupational Stress [...] in an overnight group home, 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.) Patient declined 05/22/2024 Are you [...] on file Legal Sex Male 3:29 AM RN ENDOCRINOLOGY Gender Identity Not on file Sexual Orientation Not on file Occupation Industry Job Start Date Job End Date Not on file Not on file Not on file Not on file documented as of this encounter Plan of Treatment Upcoming Encounters Date Type Department Care Team (Late st Contact Info) Description 12/11/2024 2:10 PM CDT Therapy Visit [place] [address] [place] [phone] Shanta Cooper, PT 12/14/2024 11:20 AM CDT Office Visit [address] [place] [address] Lizet Mann PA-C [address] [place] [address] 12/17/2024 2:10 PM CDT Office Visit [facility] Orthopedic [address] [place] [phone] Richard Kam MD [address] [place] [address] 12/19/2024 8:20 AM CDT Therapy Visit [place] [address] [place] [phone] Shanta Cooper, PT 12/24/2024 5:00 PM CDT Therapy Visit [place] [address] [place] [phone] Pattie Casillas, PT 12/25/2024 10:20 AM CDT Therapy Visit [address] [place] [phone]79-64 Shanta Cooper, MOIZ 01/03/2025 1:00 PM CDT Office Visit [facility] [address] [place] [phone] Estella Hassan, [facility] [address] [place] [address] 01/03/2025 1:30 PM CDT Office Visit [facility] [address] [place] [phone] [place] [address] [place], [place] [phone] 01/08/2025 1:15 PM CDT Office Visit [facility] [address] [facility] 200 [place] [phone] Hakeem Chacko MBBS [address] [place] [address] Scheduled Procedures Name Priority Associated Diagnoses Date/Ti me INJECTION, EPIDURAL, TRANSFO RAMINAL APPROACH Cervical radiculitis RELEASE, CARPAL TUNNEL, ENDOSCOPIC Right carpal tunnel syndrome documented as of this encounter Goals Goal Patient Goal Type Associated Problems Recent Progress Patient-Stated? Author Health Maintenance Care Plan HP GENERAL PROBLEM 100%(10/29/19 10:17 AM CDT) No Mitra Kendall, RETORT PRE COOKER Note: Update on 05/25/22 Barriers: Currently without [...] for health insurance by looking in to [employer] and talking with a FRW. Completed 3. I will look for a new job and will access resources that the [employer] offers. . Sarted new job 4. Continue [...] household income. 2. I will contact [facility] Line to ask about medicare plans and if there are saving programs I qualify for by by calling [phone]. 3. I will see if I am eligible for unemployment after losing my job. I will call [phone] to ask for assistance with unemployment application. 4. I will apply for jobs. I will work with [employer] in finding a job (Empowerment.) 5. I will access [employer] and ask about financial resources (such as [...] will meet with [facility] hoe worker Manjula Gresham. 4. I will look in to attending an IOP program. I will discuss with my [place] mental Health therapist and number provided for [facility] Behavioral Access - [phone] to schedule assessment fr IOP program. 5. I will go to [facility] if I have concerning mental health symptoms. 6. I will access [facility] Crisis if needed by calling [phone]. 7. I will consider calling [facility] Adult Mental health intake at [phone]. documented as of this encounter Visit Diagnoses [...] and submit it to the [facility]. 3. I will update CCC Team at [...] Depression Total Score: 4 03/28/19 2:25 PM RN ENDOCRINOLOGY documented as of this encounter Care Teams Outside Production Inspector Relationship Specialty [place] [address] [place] [address] PCP - General Family Practice 07/11/14 [place] [address] [place] [address] Assigned PCP 12/16/11 Christy Campuzano PA-C [address] [place] [address] Referring Physician Family Medicine 04/22/20 Hans Cannon MD [address] [place] [address] 827142 Resident Pulmonary Disease 04/22/20 Estella Hassan, [facility] [address] [place] [address] Pharmacist Pharmacist 05/26/20 Elaina Moreno MD 909 [place] [address] Cardiovascular & Thoracic Surgery 08/06/20 John Webb MD [address] [place] [address] Cardiovascular Disease 08/25/21 John Webb MD [address] [place] [address] Cardiovascular Disease 08/25/21 Estella Hassan, [facility] [address] [place] [address] Assigned MTM Pharmacist 12/09/21 Lindsay Carey OD [address] [facility] [place] [address] Ophthalmology 01/29/22 Richard Kam MD [address] [place] [address] Assigned Musculoskeletal Provider 08/14/22 [place] [address] [address] Assigned Neuroscience Provider 01/01/23 12/03/24 Rosemarie Mcdowell, RN Medication Manager Diabetes Education 03/17/23 Mitra Kendall, RETORT PRE COOKER Lead Cylinder Honer Primary Care - CC 12/12/23 Lizet Mann PA-C [address] [place] [address] Assigned Cancer Care Provider 01/04/24 Ravi Brownlee MD 420 [facility] 276 [place] [address] Assigned Pulmonology Provider 01/04/24 Manuel Ahn, OD [address] [place] [address] Criminal Researcher 01/05/24 Thalia Charles [facility] [address] [place], [place] [phone] Pharmacist Pharmacy 01/26/24 Gaurav Valenzuela APRN SOUND EFFECTS MANAGER [address] [place] [address] 106 [place] [address] Assigned Sleep Provider 02/04/24 Manuel Ahn, OD [address] [place] [address] Assigned Surgical Provider 02/04/24 06/02/24 Debbie Mann MD 1600 [facility] 200 [place] [address] Cardiovascular Disease 02/24/24 Hakeem Chacko MBBS [address] [place] [address] Assigned Rheumatology Provider 04/05/24 Debbie Mann MD 1600 [facility] 200 [place] [address] Assigned Heart and Vascular Provider 05/06/24 Timothy Tejada MD [address] [facility] [place] [phone] Ophthalmology 05/29/24 Timothy Tejada MD [address] [facility] [place] [address] Assigned Surgical Provider 06/03/24 Elsie Roberts APRN [facility] [address] [place] [address] Nurse Practitioner Pain Medicine 10/16/24 Cristy Morton MD [address] [place] [address] [place] [address] Assigned Pediatric Specialist Provider 11/03/24 Georgie Anguiano PA-C [address] [place] [address] Assigned Neuroscience Provider 12/04/24 documented as of this encounter
--- OUTSIDE RECORDS SUMMARY | 2024-12-06 00:42 | XMS_ITS | Encounter Summary ---
Author Organization [facility] Address [address] [place] [address] Care Team Providers Care Revenue Director Name Role Phone Va Glez MD Primary Care Provider [phone] Va Glez MD Unavailable Christy CampuzanoC Unavailable [phone] Hans Cannon MD Unavailable [phone] Estella Hassan [facility] Unavailable [phone] Josh Cordero MD, Madhuri Unavailable [phone] John Webb MD Unavailable John Webb MD Unavailable [phone] Estella Hassan [facility] Unavailable Lindsay Carey OD Unavailable [phone] Richard Kam MD Unavailable Gaby Vila DO Unavailable Rosemarie Mcdowell RN Unavailable [phone] Mitra Kendall PER DIEM REGISTERED NURSE Unavailable [phone] Lizet Mann PA-C Unavailable Ravi Brownlee MD Unavailable Manuel Ahn OD Unavailable Thalia Charles [facility] Unavailable [phone] Gaurav Valenzuela Ray ELEMENTARY EDUCATION TUTOR SCREEN MAKER Unavailable [phone] Debbie Mann MD Unavailable +[phone] Hakeem Chacko MB Unavailable Debbie Mann MD Unavailable [phone] Timothy Tejada MD Unavailable [phone] Timothy Tejada MD Unavailable [phone] Elsie Roberts ELEMENTARY EDUCATION TUTOR SCREEN MAKER Unavailable + Cristy Morton MD Unavailable [phone] Georgie Anguiano PA-C Unavailable [phone] Encounter Details Date Type Department Care Team (Late st Contact Info) Description 06/07/2024 [facility] [address] [place] [address] [facility] Social History Tobacco Use Types Packs/Day [...] re latives? Once a week 05/22/2024 Attends [employer] Not on file 05/22 Active Member [...] Answer Date Recorded PHQ-2 Score 1 03/28/2024 [facility] [place] of Occupat ional Health - Occupational Stress [...] building, in an overnight intermediate, 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.) Patient declined 05/22/2024 Are you [...] on file Legal Sex Male 3:29 AM NUTRITIONIST PUBLIC HEALTH Gender Identity Not on file Sexual Orientation Not on file Occupation Industry Job Start Date Job End Date Not on file Not on file Not on file Not on file documented as of this encounter Plan of Treatment Upcoming Encounters Date Type Department Care Team (Late st Contact Info) Description 12/11/2024 2:10 PM CDT Therapy Visit [place] [address] [address] [place] [address] Shanta Cooper, PT 12/14/2024 11:20 AM CDT Office Visit [address] [address] Lizet Mann PA-C [address] [place] [address] 12/17/2024 2:10 PM CDT Office Visit [facility] [address] 4th [place] [address] Richard Kam MD [address] [place] [address] 12/19/2024 8:20 AM CDT Therapy Visit [place] [address] [address] [address] Shanta Cooper, PT 12/24/2024 5:00 PM CDT Therapy Visit [address] [place] [phone] Pattie Casillas, PT 12/25/2024 10:20 AM CDT Therapy Visit [place] [address] [place] [address] Shanta Cooper, PT 01/03/2025 1:00 PM CDT Office Visit [facility] [address] [place] [phone] Estella Hassan, [facility] 3033 [place] [address] 01/03/2025 1:30 PM CDT Office Visit [facility] [address] [place] [phone] [place] [address] [place], [place] [phone] 01/08/2025 1:15 PM CDT Office Visit [facility] 2945 [facility] 200 [place] [phone] Hakeem Chacko MBBS [address] [place] [address] Scheduled Procedures Name Priority Associated Diagnoses Date/Ti [...] job and will access resources that the [employer] offers. . Sarted new job 4. Continue [...] by household income. 2. I will contact [employer] [facility] to ask about medicare plans and if there are saving programs I qualify for by by calling [phone]. 3. I will see if I am eligible for unemployment after losing my job. I will call [phone] to ask for assistance with unemployment application. 4. I will apply for jobs. I will work with [employer] in finding a job (Empowerment.) 5. I will access [employer] and ask about financial resources (such as [...] I will continue working with therapist at [facility]. 2. I will establish with Psychiatry. Planning to schedule with Ronnie. 3. I will meet with [facility] ax survey worker Manjula Gresham. 4. I will look in to attending an IOP program. I will discuss with my [facility] therapist and number provided for [facility] Behavioral Access - [phone] to schedule assessment fr IOP program. 5. I will go to [facility] if I have concerning mental health symptoms. 6. I will access [facility] if needed by calling [phone]. 7. I will consider calling [facility] Adult Mental health intake at [phone]. documented as of this encounter Visit Diagnoses [...] accurate information and submit it to the [facility]. 3. I will update [...] Depression Total Score: 4 03/28/19 2:25 PM NUTRITIONIST PUBLIC HEALTH documented as of this encounter Care Teams Revenue Director Relationship Specialty [place] [address] [place] [address] PCP - General Family Practice 07/11/14 [place] [address] [place] [address] Assigned PCP 12/16/11 Christy Campuzano PA-C [address] [place] [address] [id number] Referring Physician Family Medicine 04/22/20 Hans Cannon MD [address] [place] [address] Resident Pulmonary Disease 04/22/20 Estella Hassan, [facility] 3033 [facility] [place], [place] 123486 Pharmacist Pharmacist 05/26/20 Elaina Moreno MD 909 [place], [place] 450855 Cardiovascular & Thoracic Surgery 08/06/20 John Webb MD [address] 186375 Cardiovascular Disease 08/25/21 John Webb MD [address] [place] [place] [address] Cardiovascular Disease 08/25/21 [facility] 3033 [place], [place] 781116 Assigned MTM Pharmacist 12/09/21 Lindsay Carey OD [address] [facility] [place] [address] Ophthalmology 01/29/22 Richard Kam MD 500 [place], [place] 420265 Assigned Musculoskeletal Provider 08/14/22 [place] [address] [place] [address] 952817 Assigned Neuroscience Provider 01/01/23 12/03/24 Rosemarie Mcdowell, RN Catering Convention Services Manager Diabetes Education 03/17/23 Mitra Kendall, PER DIEM REGISTERED NURSE Lead Salesperson Hearing Aids Primary Care - CC 12/12/23 Lizet Mann PA-C [address] [place] [address] Assigned Cancer Care Provider 01/04/24 Ravi Brownlee MD 420 [facility] 276 [place], [place] 726165 Assigned Pulmonology Provider 01/04/24 Manuel Ahn OD 6341 [place], [place] 939732 Computer Systems Design Analyst 01/05/24 Thalia Charles [facility] [address] [place], [place] [phone] Pharmacist Pharmacy 01/26/24 Gaurav Valenzuela APRN SCREEN MAKER 606 [facility] 106 [place], [place] [address]314 Assigned Sleep Provider 02/04/24 Debbie Mann MD 1600 [facility] 200 [place], [place] [phone] Cardiovascular Disease 02/24/24 Hakeem Chacko MBBS 2945 [place] [address] Assigned Rheumatology Provider 04/05/24 Debbie Mann MD 1600 [facility] 200 [place], [place] [phone] Assigned Heart and Vascular Provider 05/06/24 Timothy Tejada MD 6341 [place] [phone] Ophthalmology 05/29/24 Timothy Tejada MD [address] [place] [address] Assigned Surgical Provider 06/03/24 Elsie Roberts APRN SCREEN MAKER 1600 [facility] [place] [address] [place] [place] [address] Nurse Practitioner Pain Medicine 10/16/24 Cristy Morton MD [facility]0 [place] [address] Assigned Pediatric Specialist Provider 11/03/24 Georgie Anguiano PA-C [address] [place] [address] Assigned Neuroscience Provider 12/04/24 documented as of this encounter
--- OUTSIDE RECORDS SUMMARY | 2024-12-06 00:43 | XMS_ITS | Encounter Summary ---
Author Organization [facility] Address [address] [place] [address] Care Team Providers Care Shingle Inspector Name Role Phone Va Glez MD Primary Care Provider Va Glez MD Unavailable Kerry Bernal RN Unavailable [phone] Ravi Barillas DPM Unavailable [phone] Christy CampuzanoC Unavailable [phone] Hans Cannon MD Unavailable Mitra Kendall SHINGLE INSPECTOR Unavailable [phone] Faith Templeton CHW Unavailable [phone] Burt Jovel MD Unavailable [phone] Burt Jovel MD Unavailable [phone] Estella Hassan [facility] Unavailable [phone] Sheila Matias Unavailable Unavailable Reji Chavez MD Unavailable [phone] Josh Cordero MD, Madhuri Unavailable [phone] Josh Cordero MD, Madhuri Unavailable [phone] Kelsi Hassan MD Unavailable [phone] John Webb MD Unavailable [phone] John Webb MD Unavailable Estella Hassan [facility] Unavailable Nav Hughes MD Unavailable [phone] Cassandra Mendoza MD Unavailable MoEstella H Unavailable Mitra Kendall SHINGLE INSPECTOR Unavailable Lindsay Carey OD Unavailable Ravi Brownlee MD Unavailable Arabella Fishman MA Unavailable [phone] Richard Kam MD Unavailable Marisol Patel RPH Unavailable Gaby Vila DO Unavailable Rosemarie Mcdowell RN Unavailable Ravi Brownlee MD Unavailable Mitra Kendall SHINGLE INSPECTOR Unavailable Lizet Mann PA-C Unavailable Ravi Brownlee MD Unavailable Nav Hughes MD Unavailable [phone] Manuel Ahn OD Unavailable [phone] Arabella Fishman MA Unavailable [phone]alia [address] [facility] Unavailable Gaurav Valenzuela APRN CHANGE BOOTH ATTENDANT Unavailable Manuel Ahn OD Unavailable Debbie Mann MD Unavailable Hakeem Chacko Unavailable Debbie Mann MD Unavailable Timothy Tejada MD Unavailable [phone] Timothy Tejada MD Unavailable [phone] Elsie Roberts APRN, CNP Unavailable + Cristy Morton MD Unavailable [phone] Annmarie Georgie PA-C Unavailable [phone] Encounter Details Date Type Department Care Team (Late st Contact Info) Description 04/30/2020 [facility] Medical Advice [facility] Behavioral Health Intake 500 [place] [phone] Bc Cochran Social History Tobacco Use Types [...] Answer Date Recorded PHQ-2 Score 2 03/27/2020 [facility] [place] of Occupat ional Health - Occupational Stress [...] file Legal Sex Male 3:29 AM MANAGER LINUX Gender Identity Not on file Sexual Orientation Not on file Occupation Industry Job Start Date Job End Date Not on file Not on file Not on file Not on file COVID-19 Exposure Response Date Recorded In the last month, have you been in contact with someone who was confirmed or suspected to have Coronavirus / COVID-19? Unable to assess 05/02/2020 11:01 AM MANAGER LINUX documented as of this encounter Plan of Treatment Upcoming Encounters Date Type Department Care Team (Late st Contact Info) Description 12/11/2024 2:10 PM CDT Therapy Visit [facility] [address] [place] [phone] Shanta Cooper, MOIZ 12/14/2024 11:20 AM CDT Office Visit [facility] [address] [place] [address] Lizet Mann PA-C [address] [facility] [place] [address] 12/17/2024 2:10 PM CDT Office Visit [facility]opedic [facility] 909 [facility] 4th [place] [address] Richard Kam MD [address] [place] [address] 12/19/2024 8:20 AM CDT Therapy Visit [address] [address] Shanta Cooper, PT 12/24/2024 5:00 PM CDT Therapy Visit [address] [address] Pattie Casillas, PT 12/25/2024 10:20 AM CDT Therapy Visit [address] [address] Shanta Cooper, PT 01/03/2025 1:00 PM CDT Office Visit [address] [phone] Estella Hassan, [facility] 3033 [place] [address] 01/03/2025 1:30 PM CDT Office Visit [address] [phone] Va Glez MD [address] [place] [address] 77768[address] 01/08/2025 1:15 PM CDT Office Visit [address] [phone] Hakeem Chacko MBBS 2945 [place] [address] Scheduled Procedures Name Priority Associated Diagnoses Date/Ti [...] COVID-19 01/22/2022 01/22/2022 01/24/2022 1:05 PM MANAGER LINUX Rule Out COVID-19 01/25/2022 01/25/2022 01/25/2022 5:21 AM MANAGER LINUX Influenza 01/25/2022 01/25/2022 02/01/2022 11:4 1 PM MANAGER LINUX Rule Out COVID-19 07/29/2022 07/29/2022 07/31/2022 11:17 AM CDT Rule Out COVID-19 03/23/2023 03/23/2023 03/23/2023 6:30 PM MANAGER LINUX COVID-19 03/23/2023 03/23/2023 04/13/2023 11:4 0 PM MANAGER LINUX Rule Out COVID-19 06/05/2023 06/05/2023 06/05/2023 5:53 PM CDT Rule Out COVID-19 11/06/2023 11/06/2023 11/06/2023 11:05 PM CDT Rule Out COVID-19 11/20/2023 11/20/2023 11/20/2023 6:43 PM CDT Rule Out COVID-19 12/27/2023 12/27/2023 12/29/2023 1:37 PM CDT Rule Out COVID-19 03/01/2024 03/01/2024 03/01/2024 1:11 PM MANAGER LINUX Rule Out COVID-19 07/18/2024 07/18/2024 07/19/2024 5:52 PM CDT Rule Out COVID-19 10/17/2024 10/17/2024 10/17/2024 11:23 PM CDT Rule Out C-difficile 11/04/2024 11/04/2024 025 1:55 AM CDT Assessment Noted Time PHQ-9 Depression Total Score: 6 03/27/19 21 12:02 PM MANAGER LINUX documented as of this encounter Care Teams Shingle Inspector Relationship Specialty [place] [address] [place] [address] PCP - General Family Practice 07/11/14 [place] [address] [place] [address] Assigned PCP 12/16/11 Kerry Bernal, INOCENCIO Personal Advocate & Liaison (PAL) 01/08/19 07/10/23 Ravi Barillas DPM [address] [address] Assigned Musculoskeletal Provider 03/23/20 10/30/21 Christy Campuzano PA-C [address] [place] [address] 633272 Referring Physician Family Medicine 04/22/20 Hans Cannon MD [address] [place] [address] Resident Pulmonary Disease 04/22/20 Mitra Kendall, SHINGLE INSPECTOR Lead Scanning Coordinator Primary Care - CC 01/08/1901/12 Faith Templeton, W Community Health Worker 04/30/2006/05 Burt Jovel MD Internal Medicine 05/08/20 12/13/23 Burt Jovel MD 2945 [facility] [address] [place] [address] Assigned Heart and Vascular Provider 05/11/20 05/17/20 Estella Hassan, [facility] [address] [place] [address] Pharmacist Pharmacist 05/26/20 Sheila Matias Financial Resource Worker Primary Care - CC 06/02/20 06/02/20 Reji Chavez MD [address] [place] [phone] Assigned Heart and Vascular Provider 05/18/20 10/30/21 Elaina Moreno MD [address] [place] [address] Assigned Surgical Provider 05/18/20 11/19/22 Elaina Moreno MD [address] [place] [address] Cardiovascular & Thoracic Surgery 08/06/20 Kelsi Hassan MD 2450 [place], [place] 767004 Assigned Pulmonology Provider 06/28/21 02/05/22 John Webb MD [address] 112595 Cardiovascular Disease 08/25/21 John Webb MD [address]405 [place] [address] Cardiovascular Disease 08/25/21 Estella Hassan, [facility] 3033 [place] [address] Assigned MTM Pharmacist 09/05/21 Nav Hughes MD [address] [place] [address] Assigned Heart and Vascular Provider 10/31/21 09/03/23 Cassandra Mendoza MD ORTHOPAEDIC SURGERY [address] [place] [address] Assigned Musculoskeletal Provider 10/31/21 08/13/22 Estella Hassan, [facility] [address] [place] [address] Assigned MTM Pharmacist 12/09/21 Mitra Kendall, [facility] Lead Scanning Coordinator Primary Care - CC 01/26/2210/28 Lindsay Carey OD [address] [place] [address] [place] [address] Ophthalmology 01/29/22 Ravi Brownlee MD [address] [place] [address] Assigned Pulmonology Provider 02/06/22 09/03/23 Arabella Fishman MA Financial Resource Worker 02/22/22 02/23/22 Richard Kam MD [address] [place] [address] Assigned Musculoskeletal Provider 08/14/22 Marisol Patel, [facility] [address] [facility] [address] [place], [place] [phone] Pharmacist Pharmacist 11/22/22 01/09/23 [place] [address] 685677 Assigned Neuroscience Provider 01/01/23 12/03/24 Rosemarie Mcdowell RN Airset Molder Diabetes Education 03/17/23 Ravi Brownlee MD [address] [place] [address] Assigned Heart and Vascular Provider 09/04/23 01/03/24 Mitra Kendall, [facility] Lead Scanning Coordinator Primary Care - CC 12/12/23 Lizet Mann PA-C [address] [facility] [place] [address] Assigned Cancer Care Provider 01/04/24 Ravi Brownlee MD [address] [place] [address] Assigned Pulmonology Provider 01/04/24 Nav Hughes MD 6405 [facility] [address] [place] [address] Assigned Heart and Vascular Provider 01/04/24 05/05/24 Manuel Ahn, OD 6341 [place] [address] Solar Engineer 01/05/24 Arabella Fishman MA Financial Resource Worker 01/06/24 03/19/24 [address] [facility] [address] [place], [place] [phone] Pharmacist Pharmacy 01/26/24 Gaurav Valenzuela APRN CHANGE BOOTH ATTENDANT 606 [facility] 106 [place], [place] [address]2004 Assigned Sleep Provider 02/04/24 Manuel Ahn, OD 6341 [place] [address] Assigned Surgical Provider 02/04/24 06/02/24 Debbie Mann MD 1600 [facility] Art 200 [place] [address] Cardiovascular Disease 02/24/24 Hakeem Chacko MBBS 2945 [place] [address] Assigned Rheumatology Provider 04/05/24 Debbie Mann MD 1600 [facility] Art 200 [place] [address] Assigned Heart and Vascular Provider 05/06/24 Timothy Tejada MD 6341 [facility] [place] [address] Ophthalmology 05/29/24 Timothy Tejada MD 6341 [facility] [place] [address] Assigned Surgical Provider 06/03/24 Elsie Robetrs APRN CHANGE BOOTH ATTENDANT [address] [facility] [address] [place] [address] Nurse Practitioner Pain Medicine 10/16/24 Cristy Morton MD [address] [place] [address] [place] [address] Assigned Pediatric Specialist Provider 11/03/24 Georgie Anguiano PA-C [address] [address] Assigned Neuroscience Provider 12/04/24 documented as of this encounter
--- OUTSIDE RECORDS SUMMARY | 2024-12-06 00:43 | XMS_ITS | Encounter Summary ---
Author Organization [place] Address [address] [place] [address] Care Team Providers Care Aoc Operations Intelligence Chief Name Role Phone Va Glez MD Primary Care Provider Va Glez MD Unavailable Kerry Bernal RN Unavailable [phone] Ravi Barillas DPM Unavailable [phone] Christy CampuzanoC Unavailable [phone] Hans Cannon MD Unavailable Mitra Kendall ANALYSIS CONSULTANT Unavailable [phone] Faith Templeton CHW Unavailable [phone] Burt Jovel MD Unavailable [phone] Burt Jovel MD Unavailable [phone] Estella Hassan [facility] Unavailable [phone] Sheila Matias Unavailable Unavailable Reji Chavez MD Unavailable [phone] Josh Cordero MD, Madhuri Unavailable [phone] Josh Cordero MD, Madhuri Unavailable [phone] Kelsi Hassan MD Unavailable [phone] John Webb MD Unavailable [phone] John Webb MD Unavailable Estella Hassan [facility] Unavailable Nav Hughes MD Unavailable [phone] Cassandra Mendoza MD Unavailable MoEstella H Unavailable Mitra Kendall ANALYSIS CONSULTANT Unavailable Lindsay Carey OD Unavailable Ravi Brownlee MD Unavailable Arabella Fishman MA Unavailable [phone] Richard Kam MD Unavailable Marisol Patel RPH Unavailable Gaby Vila DO Unavailable Rosemarie Mcdowell RN Unavailable Ravi Brownlee MD Unavailable Mitra Kendall ANALYSIS CONSULTANT Unavailable Lizet Mann PA-C Unavailable Ravi Brownlee MD Unavailable Nav Hughes MD Unavailable [phone] Manuel Ahn OD Unavailable Arabella Fishman MA Unavailable [phone] Thalia Charles [facility] Unavailable Gaurav Valenzuela APRN SCREEN OPERATOR Unavailable Manuel Ahn OD Unavailable Debbie Mann MD Unavailable Hakeem Chacko Unavailable Debbie Mann MD Unavailable Timothy Tejada MD Unavailable Timothy Tejada MD Unavailable [phone] Elsie Roberts APRN, CNP Unavailable + Cristy Morton MD Unavailable Georgie Anguiano PA-C Unavailable [phone] Encounter Details Date Type Department Care Team (Late st Contact Info) Description 05/06/2020 MyC Medical Advice [facility] Mental Health & Addiction [facility] [address] [place] [address] Nilsa Harper LICSW [address], [address] [place], [place] [address] Social History Tobacco Use Types Packs/Day Years [...] Answer Date Recorded PHQ-2 Score 2 03/27/2020 [facility] [place] of Occupat ional Health - Occupational Stress [...] on file Legal Sex Male 3:29 AM CENTRAL STATION OPERATOR Gender Identity Not on file Sexual Orientation Not on file Occupation Industry Job Start Date Job End Date Not on file Not on file Not on file Not on file COVID-19 Exposure Response Date Recorded In the last month, have you been in contact with someone who was confirmed or suspected to have Coronavirus / COVID-19? No / Unsure 05/08/2020 8:43 AM CENTRAL STATION OPERATOR documented as of this encounter Plan of Treatment Upcoming Encounters Date Type Department Care Team (Late st Contact Info) Description 12/11/2024 2:10 PM CDT Therapy Visit [address] [place] [phone] Shanta Cooper PT 12/14/2024 11:20 AM CDT Office Visit [address] [address] Lizet Mann PA-C [address] [place], [place] [address] [address] 12/17/2024 2:10 PM CDT Office Visit [facility] Orthopedic [facility] 909 [facility] 4th [place] [phone] Richard Kam MD 500 [place] [address] 12/19/2024 8:20 AM CDT Therapy Visit [address] [address] Shanta Cooper, PT 12/24/2024 5:00 PM CDT Therapy Visit [address] [address] Pattie Casillas, PT 12/25/2024 10:20 AM CDT Therapy Visit [address] [address] Shanta Cooper, PT 01/03/2025 1:00 PM CDT Office Visit [address] [phone] Estella Hassan, [facility] 3033 [place] [address] 01/03/2025 1:30 PM CDT Office Visit [address] [phone] [place] [address] [place] [id number] 01/08/2025 1:15 PM CDT Office Visit [facility] 2945 [facility] [address] [place] [address] Hakeem Chacko MBBS 2945 [place] [address] Scheduled Procedures Name Priority Associated Diagnoses Date/Ti me INJECTION, EPIDURAL, TRANSFO RAMINAL APPROACH Cervical radiculitis RELEASE, CARPAL TUNNEL, ENDOSCOPIC Right carpal tunnel syndrome documented as of this encounter Visit Diagnoses Not on filedocumented in this encounter Additional Health Concerns Infection Onset Date Last Indicated Resolved Time Rule Out COVID-19 06/22/2021 06/22/2021 06/23/2021 8:58 PM CDT Rule Out COVID-19 01/22/2022 01/22/2022 01/24/2022 1:05 PM CENTRAL STATION OPERATOR Rule Out COVID-19 01/25/2022 01/25/2022 01/25/2022 5:21 AM CENTRAL STATION OPERATOR Influenza 01/25/2022 01/25/2022 02/01/2022 11:4 1 PM CENTRAL STATION OPERATOR Rule Out COVID-19 07/29/2022 07/29/2022 07/31/2022 11:17 AM CDT Rule Out COVID-19 03/23/2023 03/23/2023 03/23/2023 6:30 PM CENTRAL STATION OPERATOR COVID-19 03/23/2023 03/23/2023 04/13/2023 11:4 0 PM CENTRAL STATION OPERATOR Rule Out COVID-19 06/05/2023 06/05/2023 06/05/2023 5:53 PM CDT Rule Out COVID-19 11/06/2023 11/06/2023 11/06/2023 11:05 PM CDT Rule Out COVID-19 11/20/2023 11/20/2023 11/20/2023 6:43 PM CDT Rule Out COVID-19 12/27/2023 12/27/2023 12/29/2023 1:37 PM CDT Rule Out COVID-19 03/01/2024 03/01/2024 03/01/2024 1:11 PM CENTRAL STATION OPERATOR Rule Out COVID-19 07/18/2024 07/18/2024 07/19/2024 5:52 PM CDT Rule Out COVID-19 10/17/2024 10/17/2024 10/17/2024 11:23 PM CDT Rule Out C-difficile 11/04/2024 11/04/2024 025 1:55 AM CDT Assessment Noted Time PHQ-9 Depression Total Score: 6 03/27/19 21 12:02 PM CENTRAL STATION OPERATOR documented as of this encounter Care Teams Aoc Operations Intelligence Chief Relationship Specialty [place] [address] [place] [address] PCP - General Family Practice 07/11/14 [place] [address] [place] [address] Assigned PCP 12/16/11 Kerry Bernal RN Personal Advocate & Liaison (PAL) 01/08/19 07/10/23 Ravi Barillas DPM [address] [address] Assigned Musculoskeletal Provider 03/23/20 10/30/21 Christy Campuzano PA-C [address] [place] [address] [id number] Referring Physician Family Medicine 04/22/20 Hans Cannon MD [address] [place] [address] Resident Pulmonary Disease 04/22/20 Mitra Kendall, ANALYSIS CONSULTANT Lead Director Of Housing Primary Care - CC 01/08/1901/12 Faith Templeton, [facility] Community Health Worker 04/30/2006/05 Burt Jovel MD Internal Medicine 05/08/20 12/13/23 Burt Jovel MD [address]A [place] [address] Assigned Heart and Vascular Provider 05/11/20 05/17/20 Estella Hassan, [facility] 3033 [place] [address] Pharmacist Pharmacist 05/26/20 Sheila Matias Financial Resource Worker Primary Care - CC 06/02/20 06/02/20 Reji Chavez MD 6405 [facility] [address] [place] [address] Assigned Heart and Vascular Provider 05/18/20 10/30/21 Elaina Moreno MD 909 [place] [address] Assigned Surgical Provider 05/18/20 11/19/22 Elaina Moreno MD 909 [place] [address] Cardiovascular & Thoracic Surgery 08/06/20 Kelsi Hassan MD 2450 [facility] [place] [address] Assigned Pulmonology Provider 06/28/21 02/05/22 John Webb MD [address] 462815 Cardiovascular Disease 08/25/21 John Webb MD [address] [address] Cardiovascular Disease 08/25/21 Estella Hassan, [facility] 3033 [place] [address] Assigned MTM Pharmacist 09/05/21 Nav Hughes MD [address] [place] [address] Assigned Heart and Vascular Provider 10/31/21 09/03/23 Cassandra Mendoza MD ORTHOPAEDIC SURGERY [address] 714104 Assigned Musculoskeletal Provider 10/31/21 08/13/22 Estella Hassan, [facility] [address] [place] [address] Assigned MTM Pharmacist 12/09/21 Mitra Kendall, [facility] Lead Director Of Housing Primary Care - CC 01/26/2210/28 Lindsay Carey OD [address] [place] [address] [address]O [address] Ophthalmology 01/29/22 Ravi Brownlee MD [address] [place] [address] Assigned Pulmonology Provider 02/06/22 09/03/23 Arabella Fishman MA Financial Resource Worker 02/22/22 02/23/22 Richard Kam MD [address] [place] [address] Assigned Musculoskeletal Provider 08/14/22 Marisol Patel, [facility] [address] [place] [phone] Pharmacist Pharmacist 11/22/22 01/09/23 [place] [address] [place], [address] 133827 Assigned Neuroscience Provider 01/01/23 12/03/24 Rosemarie Mcdowell, RN Photographic Process Worker Diabetes Education 03/17/23 Ravi Brownlee MD [address] [place] [address] Assigned Heart and Vascular Provider 09/04/23 01/03/24 Mitra Kendall, ANALYSIS CONSULTANT Lead Director Of Housing Primary Care - CC 12/12/23 Lizet Mann PA-C [address] [place] [address] Assigned Cancer Care Provider 01/04/24 Ravi Brownlee MD [address] [place] [address] Assigned Pulmonology Provider 01/04/24 Nav Hughes MD 6405 [facility] [address] [place], [place] 4045[address] Assigned Heart and Vascular Provider 01/04/24 05/05/24 Manuel Ahn, OD 6341 [place] [address] Obiee Obia Solution Architect 01/05/24 Arabella Fishman MA Financial Resource Worker 01/06/24 03/19/24 Thalia Charles [facility] [address] [place], [place] [phone] Pharmacist Pharmacy 01/26/24 Gaurav Valenzuela APRN SCREEN OPERATOR 606 24 [facility] 106 [place], [place] [address] Assigned Sleep Provider 02/04/24 Manuel Ahn, OD 6341 [place] [address] Assigned Surgical Provider 02/04/24 06/02/24 Debbie Mann MD 1600 [facility] [address] [place], [place] [phone] Cardiovascular Disease 02/24/24 Hakeem Chacko MBBS 2945 [place] [address] Assigned Rheumatology Provider 04/05/24 Debbie Mann MD 1600 [facility] 200 [place] [address] Assigned Heart and Vascular Provider 05/06/24 Timothy Tejada MD 6341 [facility] [place] [address] MD Ophthalmology 05/29/24 Timothy Tejada MD 6341 [facility] [place] [address] Assigned Surgical Provider 06/03/24 Elsie Roberts APRN CNP 1600 [facility] 101 [place] [address] Nurse Practitioner Pain Medicine 10/16/24 Cristy Morton MD [address] [place] [address] Assigned Pediatric Specialist Provider 11/03/24 Georgie Anguiano PA-C [address] [address] Assigned Neuroscience Provider 12/04/24 documented as of this encounter
--- OUTSIDE RECORDS SUMMARY | 2024-12-06 00:43 | XMS_ITS | Encounter Summary ---
Author Organization [place] Address [address] [place] [address] Care Team Providers Care Air Cargo Specialist Name Role Phone Va Glez MD Primary Care Provider [phone] Va Glez MD Unavailable Kerry Bernal RN Unavailable [phone] Ravi Barillas DPM Unavailable [phone] Christy CampuzanoC Unavailable [phone] Hans Cannon MD Unavailable Mitra Kendall BLUEPRINTING MACHINE OPERATOR Unavailable [phone] Faith Templeton CHW Unavailable [phone] Burt Jovel MD Unavailable [phone] Burt Jovel MD Unavailable [phone] Estella Hassan [facility] [place] Unavailable [phone] Sheila Matias Unavailable Unavailable Reji Chavez MD Unavailable Josh Cordero MD, Madhuri Unavailable [phone] Josh Cordero MD, Madhuri Unavailable [phone] Kelsi Hassan MD Unavailable [phone] John Webb MD Unavailable [phone] John Webb MD Unavailable Estella Hassan [facility] Unavailable Nav Hughes MD Unavailable [phone] Cassandra Mendoza MD Unavailable MoEstella H Unavailable Mitra Kendall BLUEPRINTING MACHINE OPERATOR Unavailable Lindsay Carey OD Unavailable Ravi Brownlee MD Unavailable Arabella Fishman MA Unavailable Richard Kam MD Unavailable Marisol Patel RPH Unavailable Gaby Vila DO Unavailable Rosemarie Mcdowell RN Unavailable Ravi Brownlee MD Unavailable Mitra Kendall BLUEPRINTING MACHINE OPERATOR Unavailable Lizet Mann PA-C Unavailable Ravi Brownlee MD Unavailable Nav Hughes MD Unavailable [phone] Manuel Ahn OD Unavailable [phone] Arabella Fishman MA Unavailable [phone] Thalia Charles [facility] Unavailable Gaurav Valenzuela APRN VP MEDICAL Unavailable Manuel Ahn OD Unavailable Debbie Mann MD Unavailable Hakeem Chacko Unavailable Debbie Mann MD Unavailable Timothy Tejada MD Unavailable Timothy Tejada MD Unavailable [phone] Elsie Roberts APRN, CNP Unavailable + Cristy Morton MD Unavailable [phone] Georgie Anguiano PA-C Unavailable [phone] Reason for Visit * Reason Comments Medication Refill Encounter Details Date Type Department Care Team (Late st Contact Info) Description 05/08/2020 Refill [facility] [address] [place] [address] [place] [address] [place] [address] Medication Refill Social History Tobacco Use [...] Answer Date Recorded PHQ-2 Score 2 03/27/2020 [facility] of Occupat ional [facility] - Occupational Stress Questionnaire Answer Date [...] on file Legal Sex Male 3:29 AM ROLLER INSPECTOR Gender Identity Not on file Sexual Orientation Not on file Occupation Industry Job Start Date Job End Date Not on file Not on file Not on file Not on file COVID-19 Exposure Response Date Recorded In the last month, have you been in contact with someone who was confirmed or suspected to have Coronavirus / COVID-19? No / Unsure 05/08/2020 8:43 AM ROLLER INSPECTOR documented as of this encounter Miscellaneous Notes * Telephone Encounter - Reanna Quigley RN - 05/08/2020 1:07 PM ROLLER INSPECTOR Prescription approved per [facility] Refill Protocol. Reanna Quigley RN [facility] -- Triage Nurse ER INSPECTOR documented in this encounter Plan of Treatment Upcoming Encounters Date Type Department Care Team (Late st Contact Info) Description 12/11/2024 2:10 PM CDT Therapy Visit [address] [phone] Shanta Cooper, PT 12/14/2024 11:20 AM CDT Office Visit [facility] [address] [place] [address] Lizet Mann PA-C [address] [place] [address] 12/17/2024 2:10 PM CDT Office Visit [facility] Orthopedic [facility] 909 [facility] 4th [place] [address] Richard Kam MD [address] [place] [address] 12/19/2024 8:20 AM CDT Therapy Visit [address] [phone] Shanta Cooper, PT 12/24/2024 5:00 PM CDT Therapy Visit [address] [phone] Pattie Casillas, PT 12/25/2024 10:20 AM CDT Therapy Visit [address] [phone] Shanta Cooper, PT 01/03/2025 1:00 PM CDT Office Visit [facility] [address] [place] [phone] Estella Hassan, [facility] 3033 [place] [address] 01/03/2025 1:30 PM CDT Office Visit [facility] [address] [place] [address] [place] [address] [place] [address] 01/08/2025 1:15 PM CDT Office Visit [facility] 2945 [facility] 200 [place] [address] Hakeem Chacko MBBS 2945 [place], [place] [phone] Scheduled Procedures Name Priority Associated Diagnoses Date/Ti [...] Out COVID-19 01/22/2022 01/22/2022 01/24/2022 1:05 PM ROLLER INSPECTOR Rule Out COVID-19 01/25/2022 01/25/2022 01/25/2022 5:21 AM ROLLER INSPECTOR Influenza 01/25/2022 01/25/2022 02/01/2022 11:4 1 PM ROLLER INSPECTOR Rule Out COVID-19 07/29/2022 07/29/2022 07/31/2022 11:17 AM CDT Rule Out COVID-19 03/23/2023 03/23/2023 03/23/2023 6:30 PM ROLLER INSPECTOR COVID-19 03/23/2023 03/23/2023 04/13/2023 11:4 0 PM ROLLER INSPECTOR Rule Out COVID-19 06/05/2023 06/05/2023 06/05/2023 5:53 PM CDT Rule Out COVID-19 11/06/2023 11/06/2023 11/06/2023 11:05 PM CDT Rule Out COVID-19 11/20/2023 11/20/2023 11/20/2023 6:43 PM CDT Rule Out COVID-19 12/27/2023 12/27/2023 12/29/2023 1:37 PM CDT Rule Out COVID-19 03/01/2024 03/01/2024 03/01/2024 1:11 PM ROLLER INSPECTOR Rule Out COVID-19 07/18/2024 07/18/2024 07/19/2024 5:52 PM CDT Rule Out COVID-19 10/17/2024 10/17/2024 10/17/2024 11:23 PM CDT Rule Out C-difficile 11/04/2024 11/04/2024 025 1:55 AM CDT Assessment Noted Time PHQ-9 Depression Total Score: 6 03/27/19 21 12:02 PM ROLLER INSPECTOR documented as of this encounter Care Teams Air Cargo Specialist Relationship Specialty [place] [address] [place] [address] PCP - General Family Practice 07/11/14 [place] [address] [place] [address] Assigned PCP 12/16/11 Kerry Bernal RN Personal Advocate & Liaison (PAL) 01/08/19 07/10/23 Ravi Barillas DPM [address] [address] Assigned Musculoskeletal Provider 03/23/20 10/30/21 Christy Campuzano PA-C 4151 [place] [address] Referring Physician Family Medicine 04/22/20 Hans Cannon MD 4151 [place] [address] Resident Pulmonary Disease 04/22/20 Mitra Kendall, BLUEPRINTING MACHINE OPERATOR Lead Hole Filler Primary Care - CC 01/08/1901/12 Faith Templeton, [facility] Community Health Worker 04/30/2006/05 Burt Jovel MD Internal Medicine 05/08/20 12/13/23 Burt Jovel MD [address] [phone] Assigned Heart and Vascular Provider 05/11/20 05/17/20 Estella Hassan, [facility] 3033 [place], [place] [address] Pharmacist Pharmacist 05/26/20 Sheila Matias Financial Resource Worker Primary Care - CC 06/02/20 06/02/20 Reji Chavez MD [address] [place] [phone] Assigned Heart and Vascular Provider 05/18/20 10/30/21 Elaina Moreno MD [address] [place] [address] Assigned Surgical Provider 05/18/20 11/19/22 Elaina Moreno MD 909 [place] [address] Cardiovascular & Thoracic Surgery 08/06/20 Kelsi Hassan MD [address] [place] [address] Assigned Pulmonology Provider 06/28/21 02/05/22 John Webb MD [address] [place] [address] Cardiovascular Disease 08/25/21 John Webb MD [address] [place] [address] Cardiovascular Disease 08/25/21 Estella Hassan, [facility] 3033 [place] [address] Assigned MTM Pharmacist 09/05/21 Nav Hughes MD [address] [place] [address] Assigned Heart and Vascular Provider 10/31/21 09/03/23 Cassandra Mendoza MD ORTHOPAEDIC SURGERY [address] [place] [address] Assigned Musculoskeletal Provider 10/31/21 08/13/22 Estella Hassan, [facility] 30[address] [place] [address] Assigned MTM Pharmacist 12/09/21 Mitra Kendall, BLUEPRINTING MACHINE OPERATOR Lead Hole Filler Primary Care - CC 01/26/2210/28 Lindsay Carey OD [address] [facility] [place] [address] MD Ophthalmology 01/29/22 Ravi Brownlee MD [address] [place] [address] Assigned Pulmonology Provider 02/06/22 09/03/23 Arabella Fishman MA Financial Resource Worker 02/22/22 02/23/22 Richard Kam MD [address] [place] [address] Assigned Musculoskeletal Provider 08/14/22 [facility] [address] [facility] [address] [place] [phone] Pharmacist Pharmacist 11/22/22 01/09/23 [place] [address] [address] Assigned Neuroscience Provider 01/01/23 12/03/24 Rosemarie Mcdowell, RN Juice Scaleman Diabetes Education 03/17/23 Ravi Brownlee MD [address] [place] [address] Assigned Heart and Vascular Provider 09/04/23 01/03/24 Mitra Kendall, [facility] Lead Hole Filler Primary Care - CC 12/12/23 Lizet Mann PA-C [address] [place] [address] Assigned Cancer Care Provider 01/04/24 Ravi Brownlee MD 420 [facility] 276 [place], [place] [address] Assigned Pulmonology Provider 01/04/24 Nav Hughes MD 6405 [facility] [address] [place], [place] [address] Assigned Heart and Vascular Provider 01/04/24 05/05/24 Manuel Ahn, OD 6341 [place], [place] [address] Brand Strategy Manager 01/05/24 Arabella Fishman MA Financial Resource Worker 01/06/24 03/19/24 Thalia Charles [facility] [address] [place], [place] [phone] Pharmacist Pharmacy 01/26/24 Gaurav Valenzuela, CLERICAL ASSISTANT VP [facility]ICAL [address] [facility] 106 [place] [address] Assigned Sleep Provider 02/04/24 Manuel Ahn, OD 6341 [place] [address] Assigned Surgical Provider 02/04/24 06/02/24 Debbie Mann MD 1600 [facility] [address] [place] [address] Cardiovascular Disease 02/24/24 Hakeem Chacko MBBS 2945 [place] [address] Assigned Rheumatology Provider 04/05/24 Debbie Mann MD 1600 [facility] 200 [place] [address] Assigned Heart and Vascular Provider 05/06/24 Timothy Tejada MD 6341 [place] [phone] Ophthalmology 05/29/24 Timothy Tejada MD 6341 [place] [address] Assigned Surgical Provider 06/03/24 Elsie Roberts APRN VP [facility]ICAL [address] [facility] 101 [place] [address] Nurse Practitioner Pain Medicine 10/16/24 Cristy Morton MD [address] [place] [address] [place] [address] Assigned Pediatric Specialist Provider 11/03/24 Georgie Anguiano PA-C 6545 [facility] [place] [id number] Assigned Neuroscience Provider 12/04/24 documented as of this encounter
--- OUTSIDE RECORDS SUMMARY | 2024-12-06 00:43 | XMS_ITS | Encounter Summary ---
Author Organization [facility] Address [address] [place] [address] Care Team Providers Care Fender Mechanic Name Role Phone Va Glez MD Primary Care Provider Va Glez MD Unavailable Kerry Bernal RN Unavailable [phone] Ravi Barillas DPM Unavailable [phone] Christy CampuzanoC Unavailable [phone] Hans Cannon MD Unavailable Mitra Kendall CRIMINAL JUSTICE TEACHER Unavailable [phone] Faith Templeton CHW Unavailable [phone] Burt Jovel MD Unavailable [phone] Burt Jovel MD Unavailable [phone] Estella Hassan [facility] Unavailable [phone] Sheila Matias Unavailable Unavailable Reji Chavez MD Unavailable [phone] Josh Cordero MD, Madhuri Unavailable [phone] Josh Cordero MD, Madhuri Unavailable [phone] Kelsi Hassan MD Unavailable [phone] John Webb MD Unavailable [phone] John Webb MD Unavailable Estella Hassan [facility] Unavailable Nav Hughes MD Unavailable [phone] Cassandra Mendoza MD Unavailable MoEstella H Unavailable Mitra Kendall CRIMINAL JUSTICE TEACHER Unavailable Lindsay Carey OD Unavailable Ravi Brownlee MD Unavailable Arabella Fishman MA Unavailable [phone] Richard Kam MD Unavailable Marisol Patel RPH Unavailable Gaby Vila DO Unavailable Rosemarie Mcdowell RN Unavailable Ravi Brownlee MD Unavailable Mitra Kendall CRIMINAL JUSTICE TEACHER Unavailable Lizet Mann PA-C Unavailable Ravi Brownlee MD Unavailable Nav Hughes MD Unavailable [phone] Manuel Ahn OD Unavailable Arabella Fishman MA Unavailable Thalia Charles [facility] Unavailable Gaurav Valenzuela APRN SUPPLY CHAIN TECHNICIAN Unavailable Manuel Ahn OD Unavailable Debbie Mann MD Unavailable Hakeem Chacko Unavailable Debbie Mann MD Unavailable Timothy Tejada MD Unavailable [phone] Timothy Tejada MD Unavailable [phone] Elsie Roberts APRN SUPPLY CHAIN TECHNICIAN Unavailable + Encounter Details Date Type Department Care Team (Latest Contact Info) Description 05/08/2020 Prep for Procedure [facility] Cancer [address] [place] [address] Elaina Moreno MD [address] [place] [address] Mediastinal cyst (Primary Dx) Social History [...] Answer Date Recorded PHQ-2 Score 2 09/27/2024 [facility] of Occupat ional Health - Occupational Stress [...] on file Legal Sex Male 3:29 AM PLANT CYTOLOGIST Gender Identity Not on file Sexual Orientation Not on file Occupation Industry Job Start Date Job End Date Not on file Not on file Not on file Not on file COVID-19 Exposure Response Date Recorded In the last 10 days, have yo u been in contact with someone who was confirmed or suspected to have Coronavirus/COVID-19? No / Unsure 12/14/2022 4:12 PM CDT documented as of this encounter Functional Status * Audit-C Score Answer Date of Assessment Author 2 10/20/2022 4:05 PM CDT Tablet, [place] * Q1: How often do you have a drink containing alcohol? Answer Date of Assessment Author 2-4 times a month 10/20/2022 4:05 PM CDT Tablet, [place] * Q2: How many drinks containing alcohol do you have on a typical day when you are drinking? Answer Date of Assessment Author 1 or 2 10/20/2022 4:05 PM CDT Tablet, [place] * Q3: How often do you have six or more drinks on one occasion? Answer Date of Assessment Author Never 10/20/2022 4:05 PM CDT Tablet, [place] * Calculated C-SSRS Risk Score (Lifetime/Recent) Answer Date of Assessment Author High Risk 03/01/2024 6:18 PM Hai Elena LMFT * Question Answer Date of Assessment Author 3. Active Suicidal Ideation with any Methods (Not Plan) Without Intent to Act (Lifetime) No 03/01/2024 6:16 PM Hai Elena LMFT 4. Active Suicidal Ideation with Some Intent to Act, Without Specific Plan (Lifetime) No 03/01/2024 6:16 PM Hai Elena LMFT 5. Active Suicidal Ideation with Specific Plan and Intent (Lifetime) No 03/01/2024 6:16 PM Hai Elena LMFT * Question Answer Date of Assessment Author Most Severe Ideation Rating (Past 1 Month) 1 03/01/2024 6:18 PM Hai Elena LMFT Frequency (Past 1 Month) 1 03/01/2024 6:18 PM Hai Elena LMFT Duration (Past 1 Month) 1 03/01/2024 6:18 P M Hai Elena LMFT * Question Answer Date of Assessment Author Actual Attempt (Past 3 Months) No 03/01/2024 6:18 PM Hai Elena LMFT Has subject engaged in non-suicidal self-injurious behavior? (Past 3 Months) No 03/01/2024 6:18 PM PLANT CYTOLOGIST Porter, P atrick S, BULB FARMWORKER Interrupted Attempts (Past 3 Months) No 03/01/2024 6:18 PM PLANT CYTOLOGIST PorterLetyHai S, BULB FARMWORKER Aborted or Self-Interrupted Attempt (Past 3 Months) No 03/01/2024 6:18 PM PLANT CYTOLOGIST Porter, Pat ramos S, BULB FARMWORKER Preparatory Acts or Behavior (Past 3 Months) Yes 03/01/2024 6:18 PM PLANT CYTOLOGIST Porter, Hai S, BULB FARMWORKER Total Number of Preparatory Acts (Past 3 Months) 1 03/01/2024 6:18 PM PLANT CYTOLOGIST Lety Porterric k S, BULB FARMWORKER * Question Answer Date of Assessment Author Actual Attempt (Lifetime) No 03/01/2024 6:16 PM PLANT CYTOLOGIST Hai Porter S, BULB FARMWORKER Has subject engaged in non-suicidal self-injurious behavior? (Lifetime) No 03/01/2024 6:16 PM PLANT CYTOLOGIST Lety Porterric k S, BULB FARMWORKER Interrupted Attempts (Lifetime) No 03/01/2024 6:16 PM PLANT CYTOLOGIST Hai Porter S, BULB FARMWORKER Aborted or Self-Interrupted Attempt (Lifetime) No 03/01/2024 6:16 PM PLANT CYTOLOGIST Lety Porterrick S, BULB FARMWORKER Preparatory Acts or Behavior (Lifetime) Yes 03/01/2024 6:16 PM PLANT CYTOLOGIST Lety Porterrick S, BULB FARMWORKER Total Number of Preparatory Acts (Lifetime) 1 03/01/2024 6:16 PM PLANT CYTOLOGIST German Hai S, BULB FARMWORKER * Question Answer Date of Assessment Author Most Severe Ideation Rating (Lifetime) 1 03/01/2024 6:16 PM PLANT CYTOLOGIST German Hai S, BULB FARMWORKER Frequency (Lifetime) 1 03/01/2024 6:16 PM C Hai Anderson S, BULB FARMWORKER Duration (Lifetime) 1 03/01/2024 6:16 PM CS T German Hai S, BULB FARMWORKER documented as of this encounter Plan of Treatment Upcoming Encounters Date Type Department Care Team (Late st Contact Info) Description 12/11/2024 2:10 PM CDT Therapy Visit [address] [address] Shanta Cooper, MOIZ 12/14/2024 11:20 AM CDT Office Visit [address] [address] Lizet Mann PA-C [address] [place] [address] 12/17/2024 2:10 PM CDT Office Visit [facility] Orthopedic [facility] [address] [facility] 4th [place] [phone] Richard Kam MD [address] [place] [address] 12/19/2024 8:20 AM CDT Therapy Visit [address] [address] Shanta Cooper, PT 12/24/2024 5:00 PM CDT Therapy Visit [address] [phone] Pattie Casillas, PT 12/25/2024 10:20 AM CDT Therapy Visit [address] [address] Shanta Cooper, PT 01/03/2025 1:00 PM CDT Office Visit [address] [phone] Estella Hassan, [facility] [address] [place] [address] 01/03/2025 1:30 PM CDT Office Visit [address] [phone] Va Glez MD [address] [place] [id number] 01/08/2025 1:15 PM CDT Office Visit [facility] [address] [facility] [address] [place] [address] Hakeem Chacko MBBS [address] [place] [address] Scheduled Procedures Name Priority Associated Diagnoses Date/Ti [...] Out COVID-19 01/22/2022 01/22/2022 01/24/2022 1:05 PM PLANT CYTOLOGIST Rule Out COVID-19 01/25/2022 01/25/2022 01/25/2022 5:21 AM PLANT CYTOLOGIST Influenza 01/25/2022 01/25/2022 02/01/2022 11:4 1 PM PLANT CYTOLOGIST Rule Out COVID-19 07/29/2022 07/29/2022 07/31/2022 11:17 AM CDT Rule Out COVID-19 03/23/2023 03/23/2023 03/23/2023 6:30 PM PLANT CYTOLOGIST COVID-19 03/23/2023 03/23/2023 04/13/2023 11:4 0 PM PLANT CYTOLOGIST Rule Out COVID-19 06/05/2023 06/05/2023 06/05/2023 5:53 PM CDT Rule Out COVID-19 11/06/2023 11/06/2023 11/06/2023 11:05 PM CDT Rule Out COVID-19 11/20/2023 11/20/2023 11/20/2023 6:43 PM CDT Rule Out COVID-19 12/27/2023 12/27/2023 12/29/2023 1:37 PM CDT Rule Out COVID-19 03/01/2024 03/01/2024 03/01/2024 1:11 PM PLANT CYTOLOGIST Rule Out COVID-19 07/18/2024 07/18/2024 07/19/2024 5:52 PM CDT Rule Out COVID-19 10/17/2024 10/17/2024 10/17/2024 11:23 PM CDT Assessment Noted Time PHQ-9 Depression Total Score: 6 03/27/19 21 12:02 PM PLANT CYTOLOGIST documented as of this encounter Care Teams Fender Mechanic Relationship Specialty [place] [address] [place] [address] PCP - General Family Practice 07/11/14 [place] [address] [place] [address] Assigned PCP 12/16/11 Kerry Bernal RN Personal Advocate & Liaison (PAL) 01/08/19 07/10/[address] Ravi [address]PM [address] [facility] [address] [place], [place] [address] Assigned Musculoskeletal Provider 03/23/20 10/30/21 Christy Campuzano PA-C [address] [place] [address] [phone] Referring Physician Family Medicine 04/22/20 Hans Cannon MD [address] [place] [address] 150202 Resident Pulmonary Disease 04/22/20 Mitra Kendall, CRIMINAL JUSTICE TEACHER Lead Chief Of Surgery Primary Care - CC 01/08/1901/12 Faith Templeton, [facility] Community Health Worker 04/30/2006/05 Burt Jovle MD Internal Medicine 05/08/20 12/13/23 Burt Jovel MD [address] [place], [place] [phone] Assigned Heart and Vascular Provider 05/11/20 05/17/20 Estella Hassan, [facility] [address] [place] [address] Pharmacist Pharmacist 05/26/20 Sheila Matias Financial Resource Worker Primary Care - CC 06/02/20 06/02/20 Reji Chavez MD [address] [facility] [address] [place] [phone] Assigned Heart and Vascular Provider 05/18/20 10/30/21 Elaina Moreno MD [address] [place] [address] Assigned Surgical Provider 05/18/20 11/19/22 Elaina Moreno MD [address] [place] [address] Cardiovascular & Thoracic Surgery 08/06/20 Kelsi Hassan MD [address] [place] [address] Assigned Pulmonology Provider 06/28/21 02/05/22 John Webb MD [address] [address] Cardiovascular Disease 08/25/21 John Webb MD [address] [address] Cardiovascular Disease 08/25/21 Estella Hassan, [facility] [address] [place] [address] Assigned MTM Pharmacist 09/05/21 Nav Hughes MD [address] [facility] [address] [address] Assigned Heart and Vascular Provider 10/31/21 09/03/23 Cassandra Mendoza MD ORTHOPAEDIC SURGERY [address] [address]25[address] Assigned Musculoskeletal Provider 10/31/21 08/13/22 Estella Hassan, [facility] [address] [place] [address] Assigned MTM Pharmacist 12/09/21 Mitra Kendall, CRIMINAL JUSTICE TEACHER Lead Chief Of Surgery Primary Care - CC 01/26/2210/28 [place] [address] [place] [address] [place] [address] Ophthalmology 01/29/22 Ravi Brownlee MD [address] [place] [address] [phone] Assigned Pulmonology Provider 02/06/22 09/03/23 Arabella Fishman MA Financial Resource Worker 02/22/22 02/23/22 Richard Kam MD [address] [place] [address] Assigned Musculoskeletal Provider 08/14/22 [facility] [address] [place] [address] Pharmacist Pharmacist 11/22/22 01/09/23 [place] [address] [address] Assigned Neuroscience Provider 01/01/23 12/03/24 Rosemarie Mcdowell, RN Guitar Repairer Diabetes Education 03/17/23 Ravi Brownlee MD [address] [place] [address] Assigned Heart and Vascular Provider 09/04/23 01/03/24 Mitra Kendall, CRIMINAL JUSTICE TEACHER Lead Chief Of Surgery Primary Care - CC 12/12/23 Lizet Mann PA-C [address] [facility] [place] [address] Assigned Cancer Care Provider 01/04/24 Ravi Brownlee MD [address] [place] [address] Assigned Pulmonology Provider 01/04/24 Nav Hughes MD [address] [facility] [address] [place], [place] [phone] Assigned Heart and Vascular Provider 01/04/24 05/05/24 Manuel Ahn, OD [address] [place] [address] Warper Fixer 01/05/24 Arabella Fishman MA Financial Resource Worker 01/06/24 03/19/24 Thalia Charles [facility] [address] [place], [place] [phone] Pharmacist Pharmacy 01/26/24 Gaurav Valenzuela APRN SUPPLY CHAIN TECHNICIAN [address] [facility] [address] [place] [address] Assigned Sleep Provider 02/04/24 Manuel Ahn, OD [address] [place] [address] Assigned Surgical Provider 02/04/24 06/02/24 Debbie Mann MD [address] [facility] 200 [place] [address] Cardiovascular Disease 02/24/24 Hakeem Chacko MBBS [address] [place] [address] Assigned Rheumatology Provider 04/05/24 Debbie Mann MD [address] [facility] [address] [place] [address] Assigned Heart and Vascular Provider 05/06/24 Timothy Tejada MD [address] [place] [address] Ophthalmology 05/29/24 Timothy Tejada MD [address] [place] [address] Assigned Surgical Provider 06/03/24 Elsie Roberts APRN SUPPLY CHAIN TECHNICIAN [address] [address] Nurse Practitioner Pain Medicine 10/16/24 documented as of this encounter
--- OUTSIDE RECORDS SUMMARY | 2024-12-06 00:43 | XMS_ITS | Encounter Summary ---
Author Organization [facility] Address [address] [place] [address] Care Team Providers Care Assistant Film Editor Name Role Phone Va Glez MD Primary Care Provider [phone] Va Glez MD Unavailable Va Glez MD Unavailable Kerry Bernal RN Unavailable [phone] Ravi Barillas DPM Unavailable [phone] Christy Campuzano-C Unavailable [phone] Hans Cannon MD Unavailable [phone] Mitra Kendall GLOVE CUTTER Unavailable [phone] Faith Templeton CHW Unavailable [phone] Burt Jovel MD Unavailable [phone] Burt Jovel MD Unavailable [phone] Estella Hassan [facility] Unavailable [phone] Sheila Matias Unavailable Unavailable Reji Chavez MD Unavailable Josh Cordero MD, Madhuri Unavailable [phone] Josh Cordero MD, Madhuri Unavailable [phone] Kelsi Hassan MD Unavailable [phone] John Webb MD Unavailable John Webb MD Unavailable Estella Hassan [facility] Unavailable Nav Hughes MD Unavailable [phone] Cassandra Mendoza MD Unavailable Estella Hassan H Unavailable Mitra Kendall GLOVE CUTTER Unavailable Lindsay Carey OD Unavailable Ravi Brownlee MD Unavailable Arabella Fishman MA Unavailable [phone] Richard Kam MD Unavailable Marisol Patel [facility] Unavailable Gaby Vila DO Unavailable Rosemarie Mcdowell RN Unavailable Ravi Brownlee MD Unavailable Mitra Kendall GLOVE CUTTER Unavailable Lizet MannC Unavailable Ravi Brownlee MD Unavailable Nav Hughes MD Unavailable [phone] Manuel Ahn OD Unavailable Arabella Fishman MA Unavailable [phone] Thalia Charles [facility] Unavailable Gaurav Valenzuela APRN SINGING TEACHER Unavailable Manuel Ahn OD Unavailable Debbie Mann MD Unavailable Hakeem Chacko Unavailable Debbie Mann MD Unavailable Timothy Tejada MD Unavailable Timothy Tejada MD Unavailable [phone] chelseaElsie quinn APRN SINGING TEACHER Unavailable + Cristy Morton MD Unavailable [phone] Georgie Anguiano PA-C Unavailable Reason for Visit * Reason Onset Date Comments Health Maintenance 12/17/2015 FIT TEST REQU EST Outreach 12/19/2015 INFO/UPDATE Encounter Details Date Type Department Care Team (Late st Contact Info) Description 12/17/2015 Telephone [facility] [address] [place] [address] [place] [address] [place] [address] Health Maintenance (FIT TEST REQUEST); Outreach (INFO/UPDATE) Social History Tobacco Use Types Packs/Day Years Used Date Smoking Tobacco: Former Cigarettes Q uit: 12/03/1983 Smokeless Tobacco: Never Alcohol Use Standard Drinks/Week Comments Yes 0 (1 standard drink = 0.6 oz pur e alcohol) moderate Sex and Gender Information Value Date Recorded Sex Assigned at Not on file Legal Sex Male 3:29 AM GROCERY SUPERVISOR Gender Identity Not on file Sexual [...] a message since VM was full. Outreach Ward Nurse, Rosalinda Ansari * Telephone Encounter - Emmie Ansari - 12/17/2015 10:48 AM CDT 12/17/2015 Called the patient for Health Maintenance, agreed to FIT test screening. Order placed for provider to sign. Please send FIT test to patient's home address. Thanks! Outreach Ward Nurse, Rosalinda Ansari documented in this encounter Plan of Treatment Upcoming Encounters Date Type Department Care Team (Late st Contact Info) Description 12/11/2024 2:10 PM CDT Therapy Visit [place] [address] [place] [address] Shanta Cooper, PT 12/14/2024 11:20 AM CDT Office Visit [address] [address] Lizet Mann PA-C [address] [place] [address] 12/17/2024 2:10 PM CDT Office Visit [facility] Orthopedic [address] 4th [place] [phone] Richard Kam MD [address] [place] [address] 12/19/2024 8:20 AM CDT Therapy Visit [place] [address] [place] [address] Shanta Cooper, PT 12/24/2024 5:00 PM CDT Therapy Visit [address] [place] [phone] Pattie Casilals, PT 12/25/2024 10:20 AM CDT Therapy Visit [place] [address] [place] [address] Shanta Cooper, PT 01/03/2025 1:00 PM CDT Office Visit [facility] [address] [place] [phone] Estella Hassan, [facility] [address] [place] [address] 01/03/2025 1:30 PM CDT Office Visit [facility] [address] [place] [phone] [place] [address] [place], [place] [phone] 01/08/2025 1:15 PM CDT Office Visit [place] [phone] [phone] Hakeem Chacko MBBS [address] [place] [address] Scheduled Procedures Name Priority Associated Diagnoses Date/Ti me INJECTION, EPIDURAL, TRANSFO RAMINAL APPROACH Cervical radiculitis RELEASE, CARPAL TUNNEL, ENDOSCOPIC Right carpal tunnel syndrome documented as of this encounter Visit Diagnoses Not on filedocumented in this encounter Additional Health Concerns Infection Onset Date Last Indicated Resolved Time Rule Out COVID-19 04/07/2020 04/07/2020 04/08/2020 7:51 PM GROCERY SUPERVISOR Rule Out COVID-19 04/21/2020 04/21/2020 04/22/2020 5:44 PM GROCERY SUPERVISOR Rule Out COVID-19 06/22/2021 06/22/2021 06/23/2021 8:58 PM CDT Rule Out COVID-19 01/22/2022 01/22/2022 01/24/2022 1:05 PM GROCERY SUPERVISOR Rule Out COVID-19 01/25/2022 01/25/2022 01/25/2022 5:21 AM GROCERY SUPERVISOR Influenza 01/25/2022 01/25/2022 02/01/2022 11:4 1 PM GROCERY SUPERVISOR Rule Out COVID-19 07/29/2022 07/29/2022 07/31/2022 11:17 AM CDT Rule Out COVID-19 03/23/2023 03/23/2023 03/23/2023 6:30 PM GROCERY SUPERVISOR COVID-19 03/23/2023 03/23/2023 04/13/2023 11:4 0 PM GROCERY SUPERVISOR Rule Out COVID-19 06/05/2023 06/05/2023 06/05/2023 5:53 PM CDT Rule Out COVID-19 11/06/2023 11/06/2023 11/06/2023 11:05 PM CDT Rule Out COVID-19 11/20/2023 11/20/2023 11/20/2023 6:43 PM CDT Rule Out COVID-19 12/27/2023 12/27/2023 12/29/2023 1:37 PM CDT Rule Out COVID-19 03/01/2024 03/01/2024 03/01/2024 1:11 PM GROCERY SUPERVISOR Rule Out COVID-19 07/18/2024 07/18/2024 07/19/2024 5:52 PM CDT Rule Out COVID-19 10/17/2024 10/17/2024 10/17/2024 11:23 PM CDT Rule Out C-difficile 11/04/2024 11/04/2024 025 1:55 AM CDT Assessment Noted Time PHQ-9 Depression Total Score: 4 01/30/20 15 7:29 AM GROCERY SUPERVISOR documented as of this encounter Care Teams Assistant Film Editor Relationship Specialty [place] [address] [place] [address] PCP - General Family Practice 07/11/14 [place] [address] [place] [address] PCP - Assigned PCP 12/19/11 05/16/18 [place] [address] [place], [place] [phone] Assigned PCP 12/16/11 Kerry Bernal, INOCENCIO Personal Advocate & Liaison (PAL) 01/08/19 07/10/23 Ravi Barillas DPM [address] [facility] [address] [place], [place] 9968[address] Assigned Musculoskeletal Provider 03/23/20 10/30/21 Christy Campuzano PA-C [address] [place] [address] 017402 Referring Physician Family Medicine 04/22/20 Hans Cannon MD [address] [place] [address] 411052 Resident Pulmonary Disease 04/22/20 Mitra Kendall, GLOVE CUTTER Lead Counselor Nurses' Association Primary Care - CC 01/08/1901/12 Faith Templeton, [facility] Community Health Worker 04/30/2006/05 Burt Jovel MD Internal Medicine 05/08/20 12/13/23 Burt Jovel MD [address] [place], [place] [address]A [place], [place] [phone] Assigned Heart and Vascular Provider 05/11/20 05/17/20 Estella Hassan, [facility] [address] [place] [address] Pharmacist Pharmacist 05/26/20 Sheila Matias Financial Resource Worker Primary Care - CC 06/02/20 06/02/20 Reji Chavez MD [address] [place] [phone] Assigned Heart and Vascular Provider 05/18/20 10/30/21 Elaina Moreno MD 909 [place] [address] Assigned Surgical Provider 05/18/20 11/19/22 Elaina Moreno MD [address] [place] [address] 256385 Cardiovascular & Thoracic Surgery 08/06/20 Kelsi Hassan MD 2450 [place] [address] Assigned Pulmonology Provider 06/28/21 02/05/22 John Webb MD [address] [place] [address] Cardiovascular Disease 08/25/21 John Webb MD [address] [place] [address] Cardiovascular Disease 08/25/21 Estella Hassan, [facility] [address] [place] [address] Assigned MTM Pharmacist 09/05/21 Nav Hughes MD [address] [place] [address] Assigned Heart and Vascular Provider 10/31/21 09/03/23 Cassandra Mendoza MD ORTHOPAEDIC SURGERY [address] [address] Assigned Musculoskeletal Provider 10/31/21 08/13/22 Estella Hassan, [facility] [address] [place] [address] Assigned MTM Pharmacist 12/09/21 Mitra Kendall, [facility] Lead Counselor Nurses' Association Primary Care - CC 01/26/2210/28 [place] [address] [place] [address] [place] [address] Ophthalmology 01/29/22 Ravi Brownlee MD [address] [address] Assigned Pulmonology Provider 02/06/22 09/03/23 Arabella Fishman MA Financial Resource Worker 02/22/22 02/23/22 Richard Kam MD 500 [place] [address] Assigned Musculoskeletal Provider 08/14/22 Marisol Patel, [facility] [address] [place] [address] [address] Pharmacist Pharmacist 11/22/22 01/09/23 [place] [address] [place], [address] [address] Assigned Neuroscience Provider 01/01/23 12/03/24 Rosemarie Mcdowell, RN Gallery Director Diabetes Education 03/17/23 Ravi Brownlee MD [address] [address] Assigned Heart and Vascular Provider 09/04/23 01/03/24 Mitra Kendall, [facility] Lead Counselor Nurses' Association Primary Care - CC 12/12/23 Lizet Mann PA-C [address] [place] [address] 492749 Assigned Cancer Care Provider 01/04/24 Ravi Brownlee MD [address] [place] [address] 040765 Assigned Pulmonology Provider 01/04/24 Nav Hughes MD [address] [place] [address] [address] [place] 922375 Assigned Heart and Vascular Provider 01/04/24 05/05/24 Manuel Ahn OD [address] [facility] [address] [place] 934662 Thermal Surfacing Machine Operator 01/05/24 Arabella Fishman MA Financial Resource Worker 01/06/24 03/19/24 Thalia Charles [facility] [address] [place] [address] Pharmacist Pharmacy 01/26/24 Gaurav Valenzuela APRN SINGING TEACHER 606 [facility] 106 [place] [address] Assigned Sleep Provider 02/04/24 Manuel Ahn OD [address]341 [place] [address] Assigned Surgical Provider 02/04/24 06/02/24 Debbie Mann MD [address] [address] Cardiovascular Disease 02/24/24 Hakeem Chacko MBBS 2945 [place] [address] Assigned Rheumatology Provider 04/05/24 Debbie Mann MD [address] [address] Assigned Heart and Vascular Provider 05/06/24 Timothy Tejada MD 6341 [place] [phone] Ophthalmology 05/29/24 Timothy Tejada MD [address] [place] [phone] Assigned Surgical Provider 06/03/24 Elsie Roberts APRN SINGING TEACHER [address] [place] [address] Nurse Practitioner Pain Medicine 10/16/24 Cristy Morton MD [address] [place] [address] Assigned Pediatric Specialist Provider 11/03/24 Georgie Anguiano PA-C [address] [place] [address] Assigned Neuroscience Provider 12/04/24 documented as of this encounter
--- OUTSIDE RECORDS SUMMARY | 2024-12-06 00:43 | XMS_ITS | Encounter Summary ---
Author Organization [facility] Address [address] [place] [address] Care Team Providers Care Outreach Professional Name Role Phone Va Glez MD Primary Care Provider Va Glez MD Unavailable Kerry Bernal RN Unavailable [phone] Ravi Barillas DPM Unavailable [phone] Christy CampuzanoC Unavailable [phone] Hans Cannon MD Unavailable Mitra Kendall AUTOMOBILE BODY REPAIRER HELPER Unavailable [phone] Faith Templeton CHW Unavailable [phone] Burt Jovel MD Unavailable [phone] Burt Jovel MD Unavailable [phone] Estella Hassan [facility] Unavailable [phone] Sheila Matias Unavailable Unavailable Reji Chavez MD Unavailable [phone] Josh Cordero MD, Madhuri Unavailable [phone] Josh Cordero MD, Madhuri Unavailable [phone] Kelsi Hassan MD Unavailable [phone] John Webb MD Unavailable [phone] John Webb MD Unavailable Estella Hassan [facility] Unavailable Nav Hughes MD Unavailable [phone] Cassandra Mendoza MD Unavailable MoEstella H Unavailable Mitra Kendall AUTOMOBILE BODY REPAIRER HELPER Unavailable Lindsay Carey OD Unavailable Ravi Brownlee MD Unavailable Arabella Fishman MA Unavailable [phone] Richard Kam MD Unavailable Marisol Patel RPH Unavailable Gaby Vila DO Unavailable Rosemarie Mcdowell RN Unavailable Ravi Brownlee MD Unavailable Mitra Kendall AUTOMOBILE BODY REPAIRER HELPER Unavailable Lizet Mann PA-C Unavailable Ravi Brownlee MD Unavailable Nav Hughes MD Unavailable [phone] Manuel Ahn OD Unavailable Arabella Fishman MA Unavailable [phone] Thalia Charles [facility] Unavailable Gaurav Valenzuela APRN WHEELABRATOR OPERATOR Unavailable Manuel Ahn OD Unavailable Debbie Mann MD Unavailable aHkeem Chacko Unavailable Debbie Mann MD Unavailable Timothy Tejada MD Unavailable Timothy Tejada MD Unavailable Elsie Roberts APRN, CNP Unavailable + Cristy Morton MD Unavailable Georgie Anguiano PA-C Unavailable [phone] Encounter Details Date Type Department Care Team (Late st Contact Info) Description 05/13/2020 MyC Medical Advice [facility] Cancer Clinic [address] [place] [address] Elaina Moreno MD [address] [place] [address] Social History Tobacco Use Types Packs/Day [...] Answer Date Recorded PHQ-2 Score 2 03/27/2020 [facility] [place] of Occupat ional Health - Occupational Stress [...] file Legal Sex Male 3:29 AM CREDIT REPORT CHECKER Gender Identity Not on file Sexual Orientation Not on file Occupation Industry Job Start Date Job End Date Not on file Not on file Not on file Not on file COVID-19 Exposure Response Date Recorded In the last month, have you been in contact with someone who was confirmed or suspected to have Coronavirus / COVID-19? No / Unsure 05/13/2020 2:07 PM CREDIT REPORT CHECKER documented as of this encounter Plan of Treatment Upcoming Encounters Date Type Department Care Team (Late st Contact Info) Description 12/11/2024 2:10 PM CDT Therapy Visit [facility] [address] [place] [phone] Shanta Cooper PT 12/14/2024 11:20 AM CDT Office Visit [address] [address] Lizet Mann PA-C [address] [place] [address] 12/17/2024 2:10 PM CDT Office Visit [facility] Orthopedic [facility] 909 [facility] 4th [place] [phone] Richard Kam MD 500 [place] [address] 12/19/2024 8:20 AM CDT Therapy Visit [address] [address] Shanta Cooper, PT 12/24/2024 5:00 PM CDT Therapy Visit [address] [phone] Pattie Casillas, PT 12/25/2024 10:20 AM CDT Therapy Visit [address] [phone] Shanta Cooper, PT 01/03/2025 1:00 PM CDT Office Visit [address] [phone] Estella Hassan, [facility] [address] [place] [address] 01/03/2025 1:30 PM CDT Office Visit [address] [address] [place] [address] [place] [address] 27376124 01/08/2025 1:15 PM CDT Office Visit [facility] [address] [facility] [address] [place] [address] Hakeem Chacko MBBS [address] [place] [address] Scheduled Procedures Name Priority Associated Diagnoses Date/Ti [...] COVID-19 01/22/2022 01/22/2022 01/24/2022 1:05 PM CREDIT REPORT CHECKER Rule Out COVID-19 01/25/2022 01/25/2022 01/25/2022 5:21 AM CREDIT REPORT CHECKER Influenza 01/25/2022 01/25/2022 02/01/2022 11:4 1 PM CREDIT REPORT CHECKER Rule Out COVID-19 07/29/2022 07/29/2022 07/31/2022 11:17 AM CDT Rule Out COVID-19 03/23/2023 03/23/2023 03/23/2023 6:30 PM CREDIT REPORT CHECKER COVID-19 03/23/2023 03/23/2023 04/13/2023 11:4 0 PM CREDIT REPORT CHECKER Rule Out COVID-19 06/05/2023 06/05/2023 06/05/2023 5:53 PM CDT Rule Out COVID-19 11/06/2023 11/06/2023 11/06/2023 11:05 PM CDT Rule Out COVID-19 11/20/2023 11/20/2023 11/20/2023 6:43 PM CDT Rule Out COVID-19 12/27/2023 12/27/2023 12/29/2023 1:37 PM CDT Rule Out COVID-19 03/01/2024 03/01/2024 03/01/2024 1:11 PM CREDIT REPORT CHECKER Rule Out COVID-19 07/18/2024 07/18/202407/1907/19/2024 5:52 PM CDT Rule Out COVID-19 10/17/2024 10/17/2024 10/17/2024 11:23 PM CDT Rule Out C-difficile 11/04/2024 11/04/2024 025 1:55 AM CDT Assessment Noted Time PHQ-9 Depression Total Score: 6 03/27/19 21 12:02 PM CREDIT REPORT CHECKER documented as of this encounter Care Teams Outreach Professional Relationship Specialty [place] [address] [place] [address] PCP - General Family Practice 07/11/14 [place] [address] [place] [address] Assigned PCP 12/16/11 Kerry Bernal RN Personal Advocate & Liaison (PAL) 01/08/19 07/10/23 Ravi Barlilas DPM [address] [address] Assigned Musculoskeletal Provider 03/23/20 10/30/21 Christy Campuzano PA-C [address] [place] [address] 506372 Referring Physician Family Medicine 04/22/20 Hans Cannon MD [address] [place] [address] 923142 Resident Pulmonary Disease 04/22/20 Mitra Kendall, AUTOMOBILE BODY REPAIRER HELPER Lead Medical Apparatus Model Maker Primary Care - CC 01/08/1901/12 Faith Templeton, [facility] Community Health Worker 04/30/2006/05 Burt Jovel MD Internal Medicine 05/08/20 12/13/23 Burt Jovel MD [address] [place] [address]A [place] [address] Assigned Heart and Vascular Provider 05/11/20 05/17/20 Estella Hassan, [facility] [address] [place] [address] Pharmacist Pharmacist 05/26/20 Sheila Matias Financial Resource Worker Primary Care - CC 06/02/20 06/02/20 Reji Chavez MD 6405 [facility] [address] [place] [address] Assigned Heart and Vascular Provider 05/18/20 10/30/21 Elaina Moreno MD 909 [place] [address] Assigned Surgical Provider 05/18/20 11/19/22 Elaina Moreno MD 909 [place] [address] Cardiovascular & Thoracic Surgery 08/06/20 Kelsi Hassan MD 2450 [place] [address] Assigned Pulmonology Provider 06/28/21 02/05/22 John Webb MD [address] [place] [address] Cardiovascular Disease 08/25/21 John Webb MD [address] [address] Cardiovascular Disease 08/25/21 Estella Hassan, [facility] [address] [place] [address] Assigned MTM Pharmacist 09/05/21 Nav Hughes MD [address] [place] [address] Assigned Heart and Vascular Provider 10/31/21 09/03/23 Cassandra Mendoza MD ORTHOPAEDIC SURGERY [address] [address] Assigned Musculoskeletal Provider 10/31/21 08/13/22 Estella Hassan, [facility] [address] [place] [address] Assigned MTM Pharmacist 12/09/21 Mitra Kendall, AUTOMOBILE BODY REPAIRER HELPER Lead Medical Apparatus Model Maker Primary Care - CC 01/26/2210/28 Lindsay Carey OD [address] [place] [address] [place] [address] Ophthalmology 01/29/22 Ravi Brownlee MD [address] [place] [address] Assigned Pulmonology Provider 02/06/22 09/03/23 Arabella Fishman MA Financial Resource Worker 02/22/22 02/23/22 Richard Kam MD [address] [place] [address] Assigned Musculoskeletal Provider 08/14/22 Marisol Patel, [facility] [address] [place] [phone] Pharmacist Pharmacist 11/22/22 01/09/23 [place] [address] 788017 Assigned Neuroscience Provider 01/01/23 12/03/24 Rosemarie Mcdowell, RN Glass Grinder Diabetes Education 03/17/23 Ravi Brownlee MD [address] [place] [address] Assigned Heart and Vascular Provider 09/04/23 01/03/24 Mitra Kendall, AUTOMOBILE BODY REPAIRER HELPER Lead Medical Apparatus Model Maker Primary Care - CC 12/12/23 Lizet Mann PA-C [address] [place] [address] Assigned Cancer Care Provider 01/04/24 Ravi Brownlee MD [address] [place] [address] Assigned Pulmonology Provider 01/04/24 Nav Hughes MD 6405 [facility] [address] [place], [place] 444585 Assigned Heart and Vascular Provider 01/04/24 05/05/24 Manuel Ahn, OD 6341 [place] [address] Buildings Painter 01/05/24 Arabella Fishman MA Financial Resource Worker 01/06/24 03/19/24 Thalia Charles [facility] [address] [place], [place] [phone] Pharmacist Pharmacy 01/26/24 Gaurav Valenzuela APRN WHEELABRATOR OPERATOR [address] [facility] [address] [place], [place] 691744 Assigned Sleep Provider 02/04/24 Manuel Ahn, OD 6341 [place] [address] Assigned Surgical Provider 02/04/24 06/02/24 Debbie Mann MD 1600 [facility] [address] [place], [place] [phone] Cardiovascular Disease 02/24/24 Hakeem Chacko MBBS [address]45 [place] [address] Assigned Rheumatology Provider 04/05/24 Debbie Mann MD 1600 [facility] 200 [place] [address] Assigned Heart and Vascular Provider 05/06/24 Timothy Tejada MD 6341 [facility] [place] [address] MD Ophthalmology 05/29/24 Timothy Tejada MD 6341 [place] [address] Assigned Surgical Provider 06/03/24 Elsie Roberts APRN WHEELABRATOR OPERATOR 1600 [facility] [address] [place] [address] Nurse Practitioner Pain Medicine 10/16/24 Cristy Morton MD [address] [place] [address] Assigned Pediatric Specialist Provider 11/03/24 Georgie Anguiano PA-C [address] [address] Assigned Neuroscience Provider 12/04/24 documented as of this encounter
--- OUTSIDE RECORDS SUMMARY | 2024-12-06 00:43 | XMS_ITS | Encounter Summary ---
Author Organization [facility] Address [address] [place] [address] Care Team Providers Care Marketing Forecaster Name Role Phone Va Glez MD Primary Care Provider [phone] Va Glez MD Unavailable Christy CampuzanoC Unavailable [phone] Hans Cannon MD Unavailable Estella Hassan [facility] Unavailable [phone] Josh Cordero MD, Madhuri Unavailable [phone] John Webb MD Unavailable John Webb MD Unavailable [phone] Estella Hassan [facility] Unavailable Lindsay Carey OD Unavailable Richard Kam MD Unavailable Gaby Vila DO Unavailable [phone] Rosemarie Mcdowell RN Unavailable [phone] Mitra Kendall TANK BUILDER Unavailable [phone] Lizet Mann PA-C Unavailable Ravi Brownlee MD Unavailable Manuel Ahn OD Unavailable [phone] Thalia Charles [facility] Unavailable [phone] Nicolas Gaurav Bell WIRE BOUND BOX MACHINE OPERATOR HANDBAG PARTS CUTTER Unavailable [phone] Debbie Mann MD Unavailable [phone] Hakeem Chacko MB Unavailable Debbie Mann MD Unavailable [phone] Timothy Tejada MD Unavailable [phone] Timothy Tejada MD Unavailable [phone] Elsie Roberts WIRE BOUND BOX MACHINE OPERATOR HANDBAG PARTS CUTTER Unavailable + Cristy Morton MD Unavailable [phone] Georgie Anguiano PA-C Unavailable [phone] Reason for Visit * Reason Onset Date Comments Appointment 10/19/2024 Encounter Details Date Type Department Care Team (Late st Contact Info) Description 10/19/2024 Telephone [facility] [address] [place] [address] Richard Kam MD [address] [place] [address] Appointment Social History Tobacco Use Types [...] re latives? Once a week 09/27/2024 Attends [employer] Services Not on file 09/27 Active Member [...] Answer Date Recorded PHQ-2 Score 2 09/27/2024 [facility] - Occupational Stress Questionnaire Answer [...] in an overnight mcfp, 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.) Yes 09/27/2024 Are you worried [...] on file Legal Sex Male 3:29 AM MENTAL HEALTH TECH Gender Identity Not on file Sexual Orientation Not on file Occupation Industry Job Start Date Job End Date Not on file Not on file Not on file Not on file documented as of this encounter Miscellaneous Notes * Telephone Encounter - Rufina Perez - 10/19/2024 3:38 PM CDT Other: pt is working with Kristy Laura about an appt for Tuesday. 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 He realized he has an appt with Yelena Celestino on Tuesday and he will have to call on Tuesday if he cannot make that appt. If you find something else to offer him please give him a call. AM would be ok. Could we send this information to you in [facility] or would you prefer to receive a phone call?: Patient would prefer a phone call Okay to leave a detailed message?: Yes at Cell number on file: Telephone Information: documented in this encounter Plan of Treatment Upcoming Encounters Date Type Department Care Team (Late st Contact Info) Description 12/11/2024 2:10 PM CDT Therapy Visit [facility] [address] [place] [address] Shanta Cooper PT 12/14/2024 11:20 AM CDT Office Visit [facility] [address] [place] [phone] Lizet Mann PA-C [address] [place] [address] 12/17/2024 2:10 PM CDT Office Visit [facility] [address] [facility] 4th [place] [phone] Richard Kam MD [address] [place] [address] 12/19/2024 8:20 AM CDT Therapy Visit [address] [address] Shanta Cooper, PT 12/24/2024 5:00 PM CDT Therapy Visit [address] [address] Pattie Casillas, PT 12/25/2024 10:20 AM CDT Therapy Visit [address] [address] Shanta Cooper, PT 01/03/2025 1:00 PM CDT Office Visit [address] [phone] Estella Hassan, [facility] [address] [place] [address] 01/03/2025 1:30 PM CDT Office Visit [address] [phone] [place] [id number] [place] [address] [phone] 01/08/2025 1:15 PM CDT Office Visit [address] [phone] Hakeem Chacko MBBS [address] [place] [address] Scheduled Procedures Name Priority Associated Diagnoses Date/Ti [...] for health insurance by looking in to [employer] and talking with a FRW. Completed 3. I will look for a new job and will access resources that the [facility] offers. . Sarted new job 4. [...] by household income. 2. I will contact [employer] to ask about medicare plans and if there are saving programs I qualify for by by calling [phone]. 3. I will see if I am eligible for unemployment after losing my job. I will call [phone] to ask for assistance with unemployment application. 4. I will apply for jobs. I will work with [employer] in finding a job (Empowerment.) 5. I will access [employer] and ask about financial resources (such [...] I will continue working with therapist at [facility]. 2. I will establish with Psychiatry. Planning to schedule with Ronnie. 3. I will meet with community nitro worker Manjula Gresham. 4. I will look in to attending an IOP program. I will discuss with my [place] mental [facility] therapist and number provided for [facility] Access - [phone] to schedule assessment fr IOP program. 5. I will go to [facility] if I have concerning mental health symptoms. 6. I will access [facility] if needed by calling [phone]. 7. I will consider calling [facility] Adult Mental health intake at [phone]. documented as of this encounter Visit Diagnoses [...] accurate information and submit it to the [facility]. 3. I will update CCC Team [...] documented as of this encounter Care Teams Marketing Forecaster Relationship Specialty [place] [address] [place] [address] PCP - General Family Practice 07/11/14 [place] [address] [place] [address] Assigned PCP 12/16/11 Christy Campuzano PA-C [address] [place] [address] 933722 Referring Physician Family Medicine 04/22/20 Hans Cannon MD [address] [place] [address] Resident Pulmonary Disease 04/22/20 Estella Hassan, [facility] [address] [place] [address] 365596 Pharmacist Pharmacist 05/26/20 Elaina Moreno MD [address] [place] [address] 498535 Cardiovascular & Thoracic Surgery 08/06/20 John Webb MD [address] [place] 55[address]35 Cardiovascular Disease 08/25/21 John Webb MD [address] [place] 283575 Cardiovascular Disease 08/25/21 Estella Hasasn, [facility] [address] [place] [address] Assigned MTM Pharmacist 12/09/21 [place] [address] [place] [address] [place] [address] Ophthalmology 01/29/22 Richard Kam MD [address] [place] [address] 420335 Assigned Musculoskeletal Provider 08/14/22 [place] [address] [address] PE[place], [facility] [address] [place] [address] Assigned Neuroscience Provider 01/01/23 12/03/24 Rosemarie Mcdowell, RN Kitchen Lead Diabetes Education 03/17/23 Mitra Kendall, TANK BUILDER Lead Fisher Diving Primary Care - CC 12/12/23 Lizet Mann PA-C [address] [place] [address] Assigned Cancer Care Provider 01/04/24 Ravi Brownlee MD 420 [facility] 276 [place], [place] 731585 Assigned Pulmonology Provider 01/04/24 Manuel hAn OD 6[address] [place] [address] Solid Waste Facility Supervisor 01/05/24 Thalia Charles, [facility] [address] [place], [place] [phone] Pharmacist Pharmacy 01/26/24 Gaurav Valenzuela APRN HANDBAG PARTS CUTTER [address] [place] [address] S [facility] 106 [place] [address] Assigned Sleep Provider 02/04/24 Debbie Mann MD 1600 [facility] 200 [place] [address] Cardiovascular Disease 02/24/24 Hakeem Chacko MBBS 2945 [place] [address] Assigned Rheumatology Provider 04/05/24 Debbie Mann MD 1600 [facility] 200 [place] [address] Assigned Heart and Vascular Provider 05/06/24 Timothy Tejada MD 6341 [place] [phone] Ophthalmology 05/29/24 Timothy Tejada MD 6341 [place] [address] Assigned Surgical Provider 06/03/24 Elsie Roberts APRN HANDBAG PARTS CUTTER 1600 [facility] 101 [place] [address] Nurse Practitioner Pain Medicine 10/16/24 Cristy Morton MD [address] [place] [address] [place] [address] Assigned Pediatric Specialist Provider 11/03/24 Georgie Anguiano PA-C 6545 [facility] [place] 795995 Assigned Neuroscience Provider 12/04/24 documented as of this encounter
--- OUTSIDE RECORDS SUMMARY | 2024-12-06 00:43 | XMS_ITS | Encounter Summary ---
Author Organization [facility] Address [address] [place] [address] Care Team Providers Care Pulp And Paper Tester Name Role Phone Va Glez MD Primary Care Provider [phone] Va Glez MD Unavailable Kerry Bernal RN Unavailable [phone] Ravi Barillas DPM Unavailable [phone] Christy CampuzanoC Unavailable [phone] Hans Cannon MD Unavailable Mitra Kendall NANOELECTRONICS ENGINEER Unavailable [phone] Faith Templeton CHW Unavailable [phone] Burt Jovel MD Unavailable Estella Hassan [facility] Unavailable Sheila Matias Unavailable Unavailable Reji Chavez MD Unavailable Josh Cordero MD, Madhuri Unavailable [phone] Josh Cordero MD, Madhuri Unavailable [phone] Kelsi Hassan MD Unavailable [phone] John Webb MD Unavailable John Webb MD Unavailable Estella Hassan [facility] Unavailable Nav Hughes MD Unavailable [phone] Cassandra Mendoza MD Unavailable [phone] Mo Estella Beth H Unavailable Mitra Kendall NANOELECTRONICS ENGINEER Unavailable Lindsay Carey OD Unavailable Ravi Brownlee MD Unavailable Arabella Fishman MA Unavailable [phone] Richard Kam MD Unavailable Marisol Patel [facility] Unavailable Gaby Vila DO Unavailable Rosemarie Mcdowell RN Unavailable Ravi Brownlee MD Unavailable Mitra Kendall NANOELECTRONICS ENGINEER Unavailable Lizet Mann-C Unavailable Ravi Brownlee MD Unavailable Nav Hughes MD Unavailable [phone] Manuel Ahn OD Unavailable Arabella Fishman MA Unavailable [phone] Thalia Charles [facility] Unavailable Gaurav Valenzuela APRN RESIDENTIAL SALES REPRESENTATIVE Unavailable Manuel Ahn OD Unavailable Debbie Mann MD Unavailable Hakeem Chacko Unavailable Debbie Mann MD Unavailable Timothy Tjeada MD Unavailable Timothy Tejada MD Unavailable Elsie Roberts APRN RESIDENTIAL SALES REPRESENTATIVE Unavailable + Cristy Morton MD Unavailable Georgie Anguiano PA-C Unavailable Encounter Details Date Type Department Care Team (Late st Contact Info) Description 05/27/2020 [facility] Medical Advice [address] [address] Estella Hassan, [facility] [address] [place], [place] 059636 Social History Tobacco Use Types Packs/Day Years [...] Answer Date Recorded PHQ-2 Score 2 03/27/2020 [facility] [place] of Occupat ional Health - Occupational Stress [...] on file Legal Sex Male 3: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 MACHINE OPERATOR Gender Identity Not on file [...] Visit [facility] Rehabilitation Services [address] [place] [address] Shanta Cooper, MOIZ 12/14/2024 11:20 AM CDT Office Visit [facility] [address] [place] [phone] Lizet Mann PA-C [address] [place] [address] 12/17/2024 2:10 PM CDT Office Visit [facility] Orthopedic [facility] 909 [facility] 4th [place] [address] Richard Kam MD [address] [place] [address] 12/19/2024 8:20 AM CDT Therapy Visit [address] [address] Shanta Cooper, PT 12/24/2024 5:00 PM CDT Therapy Visit [address] [phone] Pattie Casillas, PT 12/25/2024 10:20 AM CDT Therapy Visit [address] [phone] Shanta Cooper, PT 01/03/2025 1:00 PM CDT Office Visit [address] [phone] Estella Hassan, [facility] [address] [place] [address] 01/03/2025 1:30 PM CDT Office Visit [address] [phone] [place] [address] [place] [address] [phone] 01/08/2025 1:15 PM CDT Office Visit [facility] [address] [facility] [address] [place] [address] Hakeem Chacko MBBS 2945 [place] [address] Scheduled Procedures Name Priority Associated Diagnoses Date/Ti me INJECTION, EPIDURAL, TRANSFO RAMINAL APPROACH Cervical radiculitis RELEASE, CARPAL TUNNEL, ENDOSCOPIC Right carpal tunnel syndrome documented as of this encounter Visit Diagnoses Not on filedocumented in this encounter Additional Health Concerns Infection Onset Date Last Indicated Resolved Time Rule Out COVID-19 06/22/2021 06/22/2021 06/23/2021 8:58 PM CDT Rule Out COVID-19 01/22/2022 01/22/2022 01/24/2022 1:05 PM GUM SCORING MACHINE OPERATOR Rule Out COVID-19 01/25/2022 01/25/2022 01/25/2022 5:21 AM GUM SCORING MACHINE OPERATOR Influenza 01/25/2022 01/25/2022 02/01/2022 11:4 1 PM GUM SCORING MACHINE OPERATOR Rule Out COVID-19 07/29/2022 07/29/2022 07/31/2022 11:17 AM CDT Rule Out COVID-19 03/23/2023 03/23/2023 03/23/2023 6:30 PM GUM SCORING MACHINE OPERATOR COVID-19 03/23/2023 03/23/2023 04/13/2023 11:4 0 PM GUM SCORING MACHINE OPERATOR Rule Out COVID-19 06/05/2023 06/05/2023 06/05/2023 5:53 PM CDT Rule Out COVID-19 11/06/2023 11/06/2023 11/06/2023 11:05 PM CDT Rule Out COVID-19 11/20/2023 11/20/2023 11/20/2023 6:43 PM CDT Rule Out COVID-19 12/27/2023 12/27/2023 12/29/2023 1:37 PM CDT Rule Out COVID-19 03/01/2024 03/01/2024 03/01/2024 1:11 PM GUM SCORING MACHINE OPERATOR Rule Out COVID-19 07/18/2024 07/18/2024 07/19/2024 5:52 PM CDT Rule Out COVID-19 10/17/2024 10/17/2024 10/17/2024 11:23 PM CDT Rule Out C-difficile 11/04/2024 11/04/2024 025 1:55 AM CDT Assessment Noted Time PHQ-9 Depression Total Score: 6 03/27/19 21 12:02 PM GUM SCORING MACHINE OPERATOR documented as of this encounter Care Teams Pulp And Paper Tester Relationship Specialty [place] [address] [place] [address] PCP - General Family Practice 07/11/14 [place] [address] [place] [address] Assigned PCP 12/16/11 Kerry Bernal RN Personal Advocate & Liaison (PAL) 01/08/19 07/10/23 Ravi Barillas DPM [address] [address] Assigned Musculoskeletal Provider 03/23/20 10/30/21 Christy Campuzano PA-C [address] [place] [address] 050622 Referring Physician Family Medicine 04/22/20 Hans Cannon MD [address] [place] [address] 757002 Resident Pulmonary Disease 04/22/20 Mitra Kendall, NANOELECTRONICS ENGINEER Lead Assistant Production Manager Primary Care - CC 01/08/1901/12 Faith Templeton, W Community Health Worker 04/30/2006/05 Burt Jovel MD Internal Medicine 05/08/20 12/13/23 Estella Hassan, [facility] [address] [place] [address] Pharmacist Pharmacist 05/26/20 Sheila Matias Financial Resource Worker Primary Care - CC 06/02/20 06/02/20 Reji Chavez MD [address] [place] [phone] Assigned Heart and Vascular Provider 05/18/20 10/30/21 Elaina Moreno MD [address] [place] [address] Assigned Surgical Provider 05/18/20 11/19/22 Elaina Moreno MD [address] [place] [address] Cardiovascular & Thoracic Surgery 08/06/20 Kelsi Hassan MD [address] [place] [address] Assigned Pulmonology Provider 06/28/21 02/05/22 John Webb MD [address] [place] 484555 Cardiovascular Disease 08/25/21 John Webb MD [address] [place] [place] 934705 Cardiovascular Disease 08/25/21 Estella Hassan, [facility] [address] [place] [address] Assigned MTM Pharmacist 09/05/21 Nav Hughes MD [address] [facility] [place] [address] Assigned Heart and Vascular Provider 10/31/21 09/03/23 Cassandra Mendoza MD ORTHOPAEDIC SURGERY [facility] [address] [address] Assigned Musculoskeletal Provider 10/31/21 08/13/22 Estella Hassan, [facility] [address] [place] [address] Assigned MTM Pharmacist 12/09/21 Mitra Kendall, [facility] Lead Assistant Production Manager Primary Care - CC 01/26/2210/28 Lindsay Carey OD [address] [place] [address] [place] [address] Ophthalmology 01/29/22 Ravi Brownlee MD [address] [place] [address] 916715 Assigned Pulmonology Provider 02/06/22 09/03/23 Arabella Fishman MA Financial Resource Worker 02/22/22 02/23/22 Richard Kam MD [address] [place] [address] Assigned Musculoskeletal Provider 08/14/22 Marisol Patel, [facility] [address] [place] [address] Pharmacist Pharmacist 11/22/22 01/09/23 [place] [address] BC PENA, [address] [address] Assigned Neuroscience Provider 01/01/23 12/03/24 Rosemarie Mcdowell RN [facility] Diabetes Education 03/17/23 Ravi Brownlee MD [address] [place] [address] Assigned Heart and Vascular Provider 09/04/23 01/03/24 Mitra Kendall, NANOELECTRONICS ENGINEER Lead Assistant Production Manager Primary Care - CC 12/12/23 Lizet Mann PA-C [address] [facility] [address] Assigned Cancer Care Provider 01/04/24 Ravi Brownlee MD [address] [place] [address] Assigned Pulmonology Provider 01/04/24 Nav Hughes MD [address] [facility] [address] [place] [address] Assigned Heart and Vascular Provider 01/04/24 05/05/24 Manuel Ahn OD 6341 [place] [address] Lathmaker 01/05/24 Arabella Fishman MA Financial Resource Worker 01/06/24 03/19/24 Thalia Charles [facility] [address] [place], [place] [phone] Pharmacist Pharmacy 01/26/24 Gaurav Valenzuela APRN RESIDENTIAL SALES REPRESENTATIVE [address] [address] Assigned Sleep Provider 02/04/24 Manuel Ahn, ARA [address]341 [place] [address] Assigned Surgical Provider 02/04/24 06/02/24 Debbie Mann MD [address] [address] Cardiovascular Disease 02/24/24 Hakeem Chacko MBBS [facility]5 [place] [address] Assigned Rheumatology Provider 04/05/24 Debbie Mann MD 1600 [facility] 200 [place], [place] [address] Assigned Heart and Vascular Provider 05/06/24 Timothy Tejada MD 6341 [place] [address] Ophthalmology 05/29/24 Timothy Tejada MD [address] [place] [address] Assigned Surgical Provider 06/03/24 Elsie Roberts APRN RESIDENTIAL SALES REPRESENTATIVE 1600 [facility] 101 [place] [phone] Nurse Practitioner Pain Medicine 10/16/24 Cristy Morton MD [address] [place] [address] SHANK[address] ROMO [id number] Assigned Pediatric Specialist Provider 11/03/24 Georgie Anguiano PA-C 6545 [facility] [place] 708795 Assigned Neuroscience Provider 12/04/24 documented as of this encounter
--- OUTSIDE RECORDS SUMMARY | 2024-12-06 00:44 | XMS_ITS | Encounter Summary ---
Author Organization [place] Address [address] [place] [address] Care Team Providers Care Filling Station Attendant Name Role Phone Va Glez MD Primary Care Provider Va Glez MD Unavailable Kerry Bernal RN Unavailable [phone] Ravi Barillas DPM Unavailable [phone] Christy CampuzanoC Unavailable [phone] Hans Cannon MD Unavailable Mitra Kendall CLEANING CREW MEMBER Unavailable Faith Templeton CHW Unavailable [phone] Burt Jovel MD Unavailable [phone] Estella Hassan [facility] Unavailable [phone] Sheila Matias Unavailable Unavailable Reji Chavez MD Unavailable Josh Cordero MD, Madhuri Unavailable [phone] Josh Cordero MD, Madhuri Unavailable [phone] Kelsi Hassan MD Unavailable [phone] John Webb MD Unavailable [phone] John Webb MD Unavailable Estella Hassan [facility] Unavailable Nav Hughes MD Unavailable [phone] Cassandra Mendoza MD Unavailable [phone] Mo Estella Beth H Unavailable Mitra Kendall CLEANING CREW MEMBER Unavailable Lindsay Carey OD Unavailable Ravi Brownlee MD Unavailable Arabella Fishman MA Unavailable Richard Kam MD Unavailable Marisol Patel [facility] Unavailable Gaby Vila DO Unavailable Rosemarie Mcdowell RN Unavailable Ravi Brownlee MD Unavailable Mitra Kendall CLEANING CREW MEMBER Unavailable Lizet Mann-C Unavailable Ravi Brownlee MD Unavailable Nav Hughes MD Unavailable [phone] Manuel Ahn OD Unavailable Arabella Fishman MA Unavailable [phone] Thalia Charles [facility] Unavailable Gaurav Valenzuela APRN BOAT ASSEMBLER Unavailable Manuel Ahn OD Unavailable Debbie Mann MD Unavailable Hakeem Chacko Unavailable Debbie Mann MD Unavailable Timothy Tejada MD Unavailable Timothy Tejada MD Unavailable Elsie Roberts APRN BOAT ASSEMBLER Unavailable + Cristy Morton MD Unavailable Georgie Anguiano PA-C Unavailable [phone] Encounter Details Date Type Department Care Team (Late st Contact Info) Description 06/01/2020 MyC Medical Advice [address] [address] Estella Hassan, [facility] [address] [place], [place] [address] Social History Tobacco Use Types Packs/Day Years [...] Answer Date Recorded PHQ-2 Score 0 06/05/2020 [facility] [place] of Occupat ional Health - Occupational Stress [...] on file 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 Gender Identity Not on file Sexual [...] Therapy Visit [facility] [address] [place] [address] Shanta Cooper PT 12/14/2024 11:20 AM CDT Office Visit [facility] [address] [place] [phone] Lizet Mann PA-C [address] [place] [address] 12/17/2024 2:10 PM CDT Office Visit [facility] [address] [facility] 4th [place] [phone] Richard Kam MD [address] [place] [address] 12/19/2024 8:20 AM CDT Therapy Visit [address] [address] Shanta Cooper, PT 12/24/2024 5:00 PM CDT Therapy Visit [address] [phone] Pattie Casillas, PT 12/25/2024 10:20 AM CDT Therapy Visit [address] [phone] Shanta Cooper, PT 01/03/2025 1:00 PM CDT Office Visit [address] [phone] Estella Hassan, [facility] [address] [place] [address] 01/03/2025 1:30 PM CDT Office Visit [address] [phone] [place] [id number] [place] [phone] 01/08/2025 1:15 PM CDT Office Visit [facility] [address] [facility] [address] [place] [address] Hakeem Chacko MBBS [address] [place] [address] Scheduled Procedures Name Priority Associated Diagnoses Date/Ti me INJECTION, EPIDURAL, TRANSFO RAMINAL APPROACH Cervical radiculitis RELEASE, CARPAL TUNNEL, ENDOSCOPIC Right carpal tunnel syndrome documented as of this encounter Visit Diagnoses Not on filedocumented in this encounter Additional Health Concerns Infection Onset Date Last Indicated Resolved Time Rule Out COVID-19 06/22/2021 06/22/2021 06/23/2021 8:58 PM CDT Rule Out COVID-19 01/22/2022 01/22/2022 01/24/2022 1:05 PM OPERATION MANAGER Rule Out COVID-19 01/25/2022 01/25/2022 01/25/2022 5:21 AM OPERATION MANAGER Influenza 01/25/2022 01/25/2022 02/01/2022 11:4 1 PM OPERATION MANAGER Rule Out COVID-19 07/29/2022 07/29/2022 07/31/2022 11:17 AM CDT Rule Out COVID-19 03/23/2023 03/23/2023 03/23/2023 6:30 PM OPERATION MANAGER COVID-19 03/23/2023 03/23/2023 04/13/2023 11:4 0 PM OPERATION MANAGER Rule Out COVID-19 06/05/2023 06/05/2023 06/05/2023 5:53 PM CDT Rule Out COVID-19 11/06/2023 11/06/2023 11/06/2023 11:05 PM CDT Rule Out COVID-19 11/20/2023 11/20/2023 11/20/2023 6:43 PM CDT Rule Out COVID-19 12/27/2023 12/27/2023 12/29/2023 1:37 PM CDT Rule Out COVID-19 03/01/2024 03/01/2024 03/01/2024 1:11 PM OPERATION MANAGER Rule Out COVID-19 07/18/2024 07/18/2024 07/19/2024 5:52 PM CDT Rule Out COVID-19 10/17/2024 10/17/2024 10/17/2024 11:23 PM CDT Rule Out C-difficile 11/04/2024 11/04/2024 025 1:55 AM CDT Assessment Noted Time PHQ-9 Depression Total Score: 9 05/31/19 21 7:04 AM CDT documented as of this encounter Care Teams Filling Station Attendant Relationship Specialty [place] [address] [place] [address] PCP - General Family Practice 07/11/14 [place] [address] [place] [address] Assigned PCP 12/16/11 Kerry Bernal RN Personal Advocate & Liaison (PAL) 01/08/19 07/10/23 Ravi Barillas DPM [address] [address] Assigned Musculoskeletal Provider 03/23/20 10/30/21 Christy Campuzano PA-C [address] [place] [address] [id number] Referring Physician Family Medicine 04/22/20 Hans Cannon MD [address] [place] [address] 692172 Resident Pulmonary Disease 04/22/20 Mitra Kendall, CLEANING CREW MEMBER Lead Paperboard Box Maker Primary Care - CC 01/08/1901/12 Faith Templeton, [facility] Community Health Worker 04/30/2006/05 Burt Jovel MD Internal Medicine 05/08/20 12/13/23 Estella Hassan, [facility] [address] [place] [address] Pharmacist Pharmacist 05/26/20 Sheila Matias Financial Resource Worker Primary Care - CC 06/02/20 06/02/20 Reji Chavez MD [address] [place] [phone] Assigned Heart and Vascular Provider 05/18/20 10/30/21 Elaina Moreno MD [address] [place] [address] Assigned Surgical Provider 05/18/20 11/19/22 Elaina Moreno MD [address] [place] [address] Cardiovascular & Thoracic Surgery 08/06/20 Kelsi Hassan MD [address] [place] [address] Assigned Pulmonology Provider 06/28/21 02/05/22 John Webb MD [address] 298175 Cardiovascular Disease 08/25/21 John Webb MD [address] [id number] Cardiovascular Disease 08/25/21 Estella Hassan, [facility] [address] [place] [address] Assigned MTM Pharmacist 09/05/21 Nav Hughes MD [address] [place] [address] Assigned Heart and Vascular Provider 10/31/21 09/03/23 Cassandra Mendoza MD ORTHOPAEDIC SURGERY [address] [place] [address] Assigned Musculoskeletal Provider 10/31/21 08/13/22 Estella Hassan, [facility] [address] [place] [address] Assigned MTM Pharmacist 12/09/21 Mitra Kendall, [facility] Lead Paperboard Box Maker Primary Care - CC 01/26/2210/28 Lindsay Carey OD [address] [place] [address] [place] [address] Ophthalmology 01/29/22 Ravi Brownlee MD [address] [place] [address] Assigned Pulmonology Provider 02/06/22 09/03/23 Arabella Fishman MA Financial Resource Worker 02/22/22 02/23/22 Richard Kam MD [address] [place] [address] Assigned Musculoskeletal Provider 08/14/22 Marisol Patel, [facility] [address] [place] [address] Pharmacist Pharmacist 11/22/22 01/09/23 [place] [address] [place], [address] [address] Assigned Neuroscience Provider 01/01/23 12/03/24 Rosemarie Mcdowell RN Boat Repairer Diabetes Education 03/17/23 Ravi Brownlee MD [address] [place] [address] Assigned Heart and Vascular Provider 09/04/23 01/03/24 Mitra Kendall, CLEANING CREW MEMBER Lead Paperboard Box Maker Primary Care - CC 12/12/23 Lizet Mann PA-C [address] [place] [address] Assigned Cancer Care Provider 01/04/24 Ravi Brownlee MD [address] [place] [address] Assigned Pulmonology Provider 01/04/24 Nav Hughes MD [address] [place] [address] Assigned Heart and Vascular Provider 01/04/24 05/05/24 Manuel Ahn, OD [address] [place] [address] Precision Optics Technician 01/05/24 Arabella Fishman MA Financial Resource Worker 01/06/24 03/19/24 Thalia Charles [facility] [address] [place], [place] [phone] Pharmacist Pharmacy 01/26/24 Gaurav Valenzuela APRN BOAT ASSEMBLER [address] [address] Assigned Sleep Provider 02/04/24 Manuel Ahn, OD [address] [place] [address] Assigned Surgical Provider 02/04/24 06/02/24 Debbie Mann MD [address] [address] Cardiovascular Disease 02/24/24 Hakeem Chacko MBBS [facility]5 [place] [address] Assigned Rheumatology Provider 04/05/24 Debbie Mann MD 1600 [facility] 200 [place], [place] [phone] Assigned Heart and Vascular Provider 05/06/24 Timothy Tejada MD [address] [place] [phone] Ophthalmology 05/29/24 Timothy Tejada MD [address] [address] Assigned Surgical Provider 06/03/24 Elsie Roberts APRN BOAT ASSEMBLER 1600 [facility] [address] [place] [phone] Nurse Practitioner Pain Medicine 10/16/24 Cristy Morton MD [address] [place] [address] [address] [phone] Assigned Pediatric Specialist Provider 11/03/24 Georgie Anguiano PA-C [address] [facility] [place] [place] 685195 Assigned Neuroscience Provider 12/04/24 documented as of this encounter
--- OUTSIDE RECORDS SUMMARY | 2024-12-06 00:44 | XMS_ITS | Encounter Summary ---
Author Organization [place] Address [address] [place] [address] Care Team Providers Care Internet Specialist Name Role Phone Va Glez MD Primary Care Provider Va Glez MD Unavailable Christy CampuzanoC Unavailable [phone] Hans Cannon MD Unavailable Estella Hassan [facility] Unavailable Josh Cordero MD, Madhuri Unavailable [phone] John Webb MD Unavailable [phone] John Webb MD Unavailable Estella Hassan [facility] Unavailable [phone] Lindsay Carey OD Unavailable Richard Kam MD Unavailable Gaby Vila DO Unavailable Rosemarie Mcdowell RN Unavailable Mitra Kendall LOCKSTITCH BACK MAKER Unavailable [phone] Lizet Mann PA-C Unavailable Ravi Brownlee MD Unavailable Manuel Ahn OD Unavailable Thalia Charles [facility] Unavailable Gaurav Valenzuela SERVER SERVICE ASSISTANT DIRECTOR SOCIAL Unavailable Debbie Mann MD Unavailable [phone] Hakeem Chacko MB Unavailable Debbie Mann MD Unavailable [phone] Timothy Tejada MD Unavailable [phone] Timothy Tejada MD Unavailable [phone] Elsie Roberts Jennifer SERVER SERVICE ASSISTANT DIRECTOR SOCIAL Unavailable + Encounter Details Date Type Department Care Team (Late st Contact Info) Description 10/22/2024 Telephone [facility] [place] [address] [facility] 4th [place] [address] Richard Kam MD [address] [place] [address] Social History Tobacco Use Types [...] re latives? Once a week 09/27/2024 Attends [employer] Not on file 09/27 Active Member [...] Date Recorded PHQ-2 Score 2 09/27/2024 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 I offered to re-schedule him to see Dr. Kam on Tuesday morning (10/24) at 8:40am or next Tuesday (10/29) in any of the currently available appointment slots. I asked that he either MyChart orcall back to let us know if either of these changes would work for him. Call back information provided. documented in this encounter Plan of Treatment Upcoming Encounters Date Type Department Care Team (Late st Contact Info) Description 12/11/2024 2:10 PM CDT Therapy Visit [facility] [address] [address] Shanta Cooper, PT 12/14/2024 11:20 AM CDT Office Visit [facility] [id number] [place] [address] [place] [phone] Lizet Mann PA-C [id number] [place], [place] [address] [place] [address] 12/17/2024 2:10 PM CDT Office Visit [facility] [address] [place] [phone] Richard Kam MD [address] [place] [address] 12/19/2024 8:20 AM CDT Therapy Visit [place] [address] [address] [address] Shanta Cooper, PT 12/24/2024 5:00 PM CDT Therapy Visit [place] [address] [place] [phone] Pattie Casillas, PT 12/25/2024 10:20 AM CDT Therapy Visit [place] [address] [address] [address] Shanta Cooper, PT 01/03/2025 1:00 PM CDT Office Visit [address] [phone] [facility] [address] [place] [address] 01/03/2025 1:30 PM CDT Office Visit [address] [phone] [place] [address] [place] [address] 01/08/2025 1:15 PM CDT Office Visit [facility] 2945 [facility] 200 [place] [phone] Hakeem Chacko MBBS [address] [place] [address] Scheduled Procedures Name Priority Associated Diagnoses Date/Ti [...] for health insurance by looking in to [employer] and talking with a FRW. Completed 3. I will look for a new job and will access resources that the [employer] offers. . Sarted new job 4. Continue [...] with FRW in applying for [facility] assistance and to see if I qualify for Medicaid. I need to ask spouse what her income is as it goes by household income. 2. I will contact [employer] to ask about medicare plans and if there are saving programs I qualify for by by calling [phone]. 3. I will see if I am eligible for unemployment after losing my job. I will call [phone] to ask for assistance with unemployment application. 4. I will apply for jobs. I will work with [employer] in finding a job (Empowerment.) 5. I will access [employer] and ask about financial resources (such as [...] Ronnie. 3. I will meet with community cut off worker Manjula Gresham. 4. I will look in to attending an IOP program. I will discuss with my [place] mental Health therapist and number provided for [facility] Behavioral Access - [phone] to schedule assessment fr IOP program. 5. I will go to [facility] if I have concerning mental health symptoms. 6. I will access [facility] if needed by calling [phone]. 7. I will consider calling [facility] Adult Mental health intake at [phone]. documented as of this encounter Visit Diagnoses [...] accurate information and submit it to the [facility]. 3. I will update CCC Team at outreach. Health Maintenance Due or Overdue 12/16/2023 Patient expresses financial resource strain 12/13 Mental Health Symptoms Need Improvement 04/05/19 25 Assessment Noted Time PHQ-9 Depression Total Score: 7 09/28/19 25 11:01 AM CDT documented as of this encounter Care Teams Internet Specialist Relationship Specialty [place] [address] [place] [address] PCP - General Family Practice 07/11/14 [place] [address] [place] [address] Assigned PCP 12/16/11 Christy Campuzano PA-C [address] [place] [address] 482692 Referring Physician Family Medicine 04/22/20 Hans Cannon MD [address] [place] [address] 354042 Resident Pulmonary Disease 04/22/20 Estella Hassan, [facility] 30[address] [facility] [place] [address] Pharmacist Pharmacist 05/26/20 Elaina Moreno MD [address]09 [place] [address] Cardiovascular & Thoracic Surgery 08/06/20 John Webb MD [address] [place] 74[address]25 Cardiovascular Disease 08/25/21 John Webb MD [address] [place] 292345 Cardiovascular Disease 08/25/21 Estella Hassan, [facility] [address] [place] [address] Assigned MTM Pharmacist 12/09/21 Lindsay Carey OD [address] [facility] [place] [address] Ophthalmology 01/29/22 Richard Kam MD [address] [place] [address] Assigned Musculoskeletal Provider 08/14/22 [place] [address] [address] Assigned Neuroscience Provider 01/01/23 12/03/24 Rosemarie Mcdowell, RN Director Business Development Diabetes Education 03/17/23 Mitra Kendall, LOCKSTITCH BACK MAKER Lead Yard Switch Operator Primary Care - CC 12/12/23 Lizet Mann PA-C [address] [place] [address] Assigned Cancer Care Provider 01/04/24 Ravi Brownlee MD [address] [facility] 276 [place], [place] 4417[address] Assigned Pulmonology Provider 01/04/24 Manuel Ahn OD 6341 [place], [place] 302972 Printing Table Hand 01/05/24 Thalia Charles, [facility] [address] [place], [place] [phone] Pharmacist Pharmacy 01/26/24 Gaurav Valenzuela APRN DIRECTOR SOCIAL [address] [facility] [address] [place], [place] [address] Assigned Sleep Provider 02/04/24 Debbie Mann MD 1600 [facility] 200 [place], [place] [phone] Cardiovascular Disease 02/24/24 Hakeem Chacko MBBS [address] [place] [address] Assigned Rheumatology Provider 04/05/24 Debbie Mann MD 1600 [facility] 200 [place] [address] Assigned Heart and Vascular Provider 05/06/24 Timothy Tejada MD [address] [place] [address] MD Ophthalmology 05/29/24 Timothy Tejada MD [address] [place] [address] Assigned Surgical Provider 06/03/24 Elsie Roberts APRN [facility] 1600 [facility] 101 [place] [address] Nurse Practitioner Pain Medicine 10/16/24 documented as of this encounter
--- OUTSIDE RECORDS SUMMARY | 2024-12-06 00:44 | XMS_ITS | Encounter Summary ---
Author Organization [place] Address [address] [place] [address] Care Team Providers Care Tufter Hand Name Role Phone Va Glez MD Primary Care Provider Va Glez MD Unavailable Kerry Bernal RN Unavailable [phone] Ravi Barillas DPM Unavailable [phone] Christy CampuzanoC Unavailable [phone] Hans Cannon MD Unavailable Mitra Kendall ENTRY LEVEL SOFTWARE DEVELOPER Unavailable Faith Templeton CHW Unavailable [phone] Burt Jovel MD Unavailable [phone] Estella Hassan [facility] Unavailable Sheila Matias Unavailable Unavailable Reji Chavez MD Unavailable [phone] Josh Cordero MD, Madhuri Unavailable [phone] Josh Cordero MD, Madhuri Unavailable [phone] Kelsi Hassan MD Unavailable [phone] John Webb MD Unavailable [phone] John Webb MD Unavailable [phone] Estella Hassan [facility] Unavailable Nav Hughes MD Unavailable [phone] Cassandra Mendoza MD Unavailable [phone] Mo Estella Beth H Unavailable Mitra Kendall ENTRY LEVEL SOFTWARE DEVELOPER Unavailable Lindsay Carey OD Unavailable Ravi Brownlee MD Unavailable Arabella Fishman MA Unavailable [phone] Richard Kam MD Unavailable Marisol Patel [facility] Unavailable Gaby Vila DO Unavailable Rosemarie Mcdowell RN Unavailable Ravi Brownlee MD Unavailable Mitra Kendall ENTRY LEVEL SOFTWARE DEVELOPER Unavailable Lizet Mann-C Unavailable Ravi Brownlee MD Unavailable Nav Hughes MD Unavailable [phone] Manuel Ahn OD Unavailable Arabella Fishman MA Unavailable [phone] Thalia Charles [facility] Unavailable Gaurav Valenzuela APRN HOT MILL OPERATOR Unavailable Manuel Ahn OD Unavailable Debbie Mann MD Unavailable Hakeem Chacko Unavailable Debbie Mann MD Unavailable Timothy Tejada MD Unavailable Timothy Tejada MD Unavailable Elsei Roberts [place] SZYMANSKI HOT MILL OPERATOR Unavailable + Cristy Morton MD Unavailable Georgie Anguiano PA-C Unavailable Encounter Details Date Type Department Care Team (Late st Contact Info) Description 05/30/2020 MyC Medical Advice [facility] [id number] [place] [phone] [place] [address] [place] [address] Social History Tobacco Use Types [...] Answer Date Recorded PHQ-2 Score 2 03/27/2020 [facility] of Occupat ional Health - [...] on file 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 Gender Identity Not on file Sexual [...] Description 12/11/2024 2:10 PM CDT Therapy Visit [facility] [address] [place] [address] Shanta Cooper, MOIZ 12/14/2024 11:20 AM CDT Office Visit [facility] [address] [facility] [place] [address] Lizet Mann PA-C [id number] [place], [place] [address] [place] [address] 12/17/2024 2:10 PM CDT Office Visit [facility] Orthopedic [facility] [address] [facility] [address] 4th [place] [phone] Richard Kam MD [address] [place] [address] 12/19/2024 8:20 AM CDT Therapy Visit [address] [place] [phone] Shanta Cooper, PT 12/24/2024 5:00 PM CDT Therapy Visit [address] [phone] Pattie Casillas, PT 12/25/2024 10:20 AM CDT Therapy Visit [address] [phone] Shanta Cooper, PT 01/03/2025 1:00 PM CDT Office Visit [address] [phone] Estella Hassan, [facility] [address] [place] [address] 01/03/2025 1:30 PM CDT Office Visit [address] [phone] [place] [address] [place] [phone] 01/08/2025 1:15 PM CDT Office Visit [facility] [address] [facility] [address] [place] [phone] Hakeem Chacko MBBS [address]45 [place] [address] Scheduled Procedures Name Priority Associated Diagnoses Date/Ti me INJECTION, EPIDURAL, TRANSFO RAMINAL APPROACH Cervical radiculitis RELEASE, CARPAL TUNNEL, ENDOSCOPIC Right carpal tunnel syndrome documented as of this encounter Visit Diagnoses Not on filedocumented in this encounter Additional Health Concerns Infection Onset Date Last Indicated Resolved Time Rule Out COVID-19 06/22/2021 06/22/2021 06/23/2021 8:58 PM CDT Rule Out COVID-19 01/22/2022 01/22/2022 01/24/2022 1:05 PM QUALITY CONTROL ASSISTANT Rule Out COVID-19 01/25/2022 01/25/2022 01/25/2022 5:21 AM QUALITY CONTROL ASSISTANT Influenza 01/25/2022 01/25/2022 02/01/2022 11:4 1 PM QUALITY CONTROL ASSISTANT Rule Out COVID-19 07/29/2022 07/29/2022 07/31/2022 11:17 AM CDT Rule Out COVID-19 03/23/2023 03/23/2023 03/23/2023 6:30 PM QUALITY CONTROL ASSISTANT COVID-19 03/23/2023 03/23/2023 04/13/2023 11:4 0 PM QUALITY CONTROL ASSISTANT Rule Out COVID-19 06/05/2023 06/05/2023 06/05/2023 5:53 PM CDT Rule Out COVID-19 11/06/2023 11/06/2023 11/06/2023 11:05 PM CDT Rule Out COVID-19 11/20/2023 11/20/2023 11/20/2023 6:43 PM CDT Rule Out COVID-19 12/27/2023 12/27/2023 12/29/2023 1:37 PM CDT Rule Out COVID-19 03/01/2024 03/01/2024 03/01/2024 1:11 PM QUALITY CONTROL ASSISTANT Rule Out COVID-19 07/18/2024 07/18/2024 07/19/2024 5:52 PM CDT Rule Out COVID-19 10/17/2024 10/17/2024 10/17/2024 11:23 PM CDT Rule Out C-difficile 11/04/2024 11/04/2024 025 1:55 AM CDT Assessment Noted Time PHQ-9 Depression Total Score: 9 05/31/19 21 7:04 AM CDT documented as of this encounter Care Teams Tufter Hand Relationship Specialty [place] [address] [place] [address] PCP - General Family Practice 07/11/14 [place] [address] [place] [address] Assigned PCP 12/16/11 Kerry Bernal RN Personal Advocate & Liaison (PAL) 01/08/19 07/10/23 Ravi Barillas DPM [address] [address] Assigned Musculoskeletal Provider 03/23/20 10/30/21 Christy Campuzano PA-C [address] [place] [address] 188242 Referring Physician Family Medicine 04/22/20 Hans Cannon MD [address] [place] [address] [phone] Resident Pulmonary Disease 04/22/20 Mitra Kendall, ENTRY LEVEL SOFTWARE DEVELOPER Lead Road Engineer Primary Care - CC 01/08/1901/12 Faith Templeton, W Community Health Worker 2/17/21 3/25 /21 Burt Jovel MD Internal Medicine 05/08/20 12/13/23 Estella Hassan, [facility] [address] [place] [address] Pharmacist Pharmacist 05/26/20 Sheila Matias Financial Resource Worker Primary Care - CC 06/02/20 06/02/20 Reji Chavez MD [address] [place] [phone] Assigned Heart and Vascular Provider 05/18/20 10/30/21 Elaina Moreno MD [address] [place] [address] Assigned Surgical Provider 05/18/20 11/19/22 Elaina Moreno MD [address] [place] [address] Cardiovascular & Thoracic Surgery 08/06/20 Kelsi Hassan MD [address] [facility] [place] [address] Assigned Pulmonology Provider 06/28/21 02/05/22 John Webb MD [address] [id number] Cardiovascular Disease 08/25/21 John Webb MD [address] [phone] Cardiovascular Disease 08/25/21 Estella Hassan, [facility] [address] [place] [address] Assigned MTM Pharmacist 09/05/21 Nav Hughes MD [address] [facility] [facility] [place] [address] Assigned Heart and Vascular Provider 10/31/21 09/03/23 Cassandra Mendoza MD ORTHOPAEDIC SURGERY [address] [place] [address] Assigned Musculoskeletal Provider 10/31/21 08/13/22 Estella Hassan, [facility] [address] [place] [address] Assigned MTM Pharmacist 12/09/21 Mitra Kendall, [facility] Lead Road Engineer Primary Care - CC 01/26/2210/28 Lindsay Carey OD [address] [place] [address] [place] [address] Ophthalmology 01/29/22 Ravi Brownlee MD [address] [place] [address] 814335 Assigned Pulmonology Provider 02/06/22 09/03/23 Arabella Fishman MA Financial Resource Worker 02/22/22 02/23/22 Richard Kam MD [address] [place] [address] Assigned Musculoskeletal Provider 08/14/22 Marisol Patel, [facility] [address] [place] [address] Pharmacist Pharmacist 11/22/22 01/09/23 [place] [address] [address] Assigned Neuroscience Provider 01/01/23 12/03/24 Rosemarie Mcdowell RN Disbursing Agent Diabetes Education 03/17/23 Ravi Brownlee MD [address] [place] [address] Assigned Heart and Vascular Provider 09/04/23 01/03/24 Mitra Kendall, ENTRY LEVEL SOFTWARE DEVELOPER Lead Road Engineer Primary Care - CC 12/12/23 Lizet Mann PA-C [address] [place] [address] Assigned Cancer Care Provider 01/04/24 Ravi Brownlee MD [address] [place] [address] Assigned Pulmonology Provider 01/04/24 Nav Hughes MD [address] [facility] [address] [place] [address] Assigned Heart and Vascular Provider 01/04/24 05/05/24 Manuel Ahn OD 6341 [place] [address] Ward Supervisor 01/05/24 Arabella Fishman MA Financial Resource Worker 01/06/24 03/19/24 Thalia Charles [facility] [address] [place], [place] [phone] Pharmacist Pharmacy 01/26/24 Gaurav Valenzuela APRN HOT MILL OPERATOR [address] [address] Assigned Sleep Provider 02/04/24 Manuel Ahn OD 6341 [place] [address] Assigned Surgical Provider 02/04/24 06/02/24 Debbie Mann MD [address] [address] Cardiovascular Disease 02/24/24 Hakeem Chacko MBBS 2945 [place] [address] Assigned Rheumatology Provider 04/05/24 Debbie Mann MD 1600 [facility] 200 [place] [address] Assigned Heart and Vascular Provider 05/06/24 Timothy Tejada MD 6341 [place] [phone] Ophthalmology 05/29/24 Timothy Tejada MD [address] [place] [address] Assigned Surgical Provider 06/03/24 Elsie Roberts APRN HOT MILL OPERATOR 1600 [facility] [address] [place] [phone] Nurse Practitioner Pain Medicine 10/16/24 Cristy Morton MD [facility] SHANK[place] ROMO [id number] Assigned Pediatric Specialist Provider 11/03/24 Georgie Anguiano PA-C [address] [facility] [place] 438005 Assigned Neuroscience Provider 12/04/24 documented as of this encounter
--- OUTSIDE RECORDS SUMMARY | 2024-12-06 00:44 | XMS_ITS | Encounter Summary ---
Author Organization [place] Address [address] [place] [address] Care Team Providers Care Combatant Diver Officer Name Role Phone Va Glez MD Primary Care Provider Va Glez MD Unavailable Christy CampuzanoC Unavailable [phone] Hans Cannon MD Unavailable [phone] Estella Hassan [facility] Unavailable Josh Cordero MD, Madhuri Unavailable [phone] John Webb MD Unavailable [phone] John Webb MD Unavailable Estella Hassan [facility] Unavailable Lindsay Carey OD Unavailable Richard Kam MD Unavailable Gaby Vila DO Unavailable [phone] Rosemarie Mcdowell RN Unavailable Mitra Kendall LAY OUT INSPECTOR Unavailable [phone] Lizet Mann PA-C Unavailable [phone] Ravi Brownlee MD Unavailable Manuel Ahn OD Unavailable Thalia Charles [facility] Unavailable [phone] Gaurav Valenzuela AUTO JOB ESTIMATOR PORTRAIT ARTIST Unavailable [phone] Debbie Mann MD Unavailable [phone] Hakeem Chacko MB Unavailable Debbie Mann MD Unavailable [phone] Timothy Tejada MD Unavailable [phone] Timothy Tejada MD Unavailable [phone] Elsie Roberts Jennifer AUTO JOB ESTIMATOR PORTRAIT ARTIST Unavailable + Reason for Visit * Reason Comments Medication Refill Encounter Details Date Type Department Care Team (Late st Contact Info) Description 10/24/[address] [phone] [place] [id number] [place] [address] [phone] Medication Refill Social History Tobacco Use Types [...] re latives? 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 Gender Identity Not on file Sexual Orientation Not on file Occupation Industry Job Start Date Job End Date Not on file Not on file Not on file Not on file documented as of this encounter Plan of Treatment Upcoming Encounters Date Type Department Care Team (Late st Contact Info) Description 12/11/2024 2:10 PM CDT Therapy Visit [place] [address] [place] [address] Shanta Cooper, PT 12/14/2024 11:20 AM CDT Office Visit [facility] [address] [place] [address] Lizet Mann PA-C [address] [place] [address] 12/17/2024 2:10 PM CDT Office Visit [facility] Orthopedic [address] [place] [phone] Richard Kam MD [address] [place] [address] 12/19/2024 8:20 AM CDT Therapy Visit [place] [address] [place] [address] Shanta Cooper, PT 12/24/2024 5:00 PM CDT Therapy Visit [place] [address] [place] [phone] Pattie Casillas, PT 12/25/2024 10:20 AM CDT Therapy Visit [place] [address] [place] [phone] Shanta Cooper, PT 01/03/2025 1:00 PM CDT Office Visit [facility] [address] [place] [phone] Estella Hassan, [facility] 3033 [place] [address] 01/03/2025 1:30 PM CDT Office Visit [facility] [address] [place] [phone] [place] [address] [place], [place] [phone] 01/08/2025 1:15 PM CDT Office Visit [facility] [address] [facility] 200 [place] [phone] Hakeem Chacko MBBS 2945 [place] [address] Scheduled Procedures Name Priority Associated Diagnoses Date/Ti me INJECTION, EPIDURAL, TRANSFO RAMINAL APPROACH Cervical radiculitis RELEASE, CARPAL TUNNEL, ENDOSCOPIC Right carpal tunnel syndrome documented as of this encounter Goals Goal Patient Goal Type Associated Problems Recent Progress Patient-Stated? Author Health Maintenance Care Plan HP GENERAL PROBLEM 100%(10/29/19 10:17 AM CDT) No Mitra Kendall, LAY OUT INSPECTOR Note: Update on 05/25/22 Barriers: Currently [...] job and will access resources that the [employer] offers. . Sarted new job 4. Continue [...] by household income. 2. I will contact [facility] to ask about medicare plans and if there are saving programs I qualify for by by calling [phone]. 3. I will see if I am eligible for unemployment after losing my job. I will call [phone] to ask for assistance with unemployment application. 4. I will apply for jobs. I will work with [employer] in finding a job (Empowerment.) 5. I will access [employer] and ask about financial resources (such as [...] will meet with [facility] hot stick worker Manjula Gresham. 4. I will look in to attending an IOP program. I will discuss with my [place] mental Health therapist and number provided for [facility] - [phone] to schedule assessment fr IOP program. 5. I will go to [facility] if I have concerning mental health symptoms. 6. I will access [facility] if needed by calling [phone]. 7. I will consider calling [facility] Adult Mental health intake at [phone]. documented as of this encounter Visit Diagnoses [...] [facility]. 3. I will update CCC Team at outreach. Health Maintenance Due or Overdue 12/16/2023 Patient expresses financial resource strain 12/13 Mental Health Symptoms Need Improvement 04/05/19 Assessment Noted Time PHQ-9 Depression Total Score: 7 09/28/19 11:01 AM CDT documented as of this encounter Care Teams Combatant Diver Officer Relationship Specialty [place] [address] [place] [address] PCP - General Family Practice 07/11/14 [place] [address] [place] [address] Assigned PCP 12/16/11 Christy Campuzano PA-C [address] [place] [address] 044562 Referring Physician Family Medicine 04/22/20 Hans Cannon MD [address] [place] [address] 633682 Resident Pulmonary Disease 04/22/20 Estella Hassan, [facility] [address] [place], [place] [address] Pharmacist Pharmacist 05/26/20 Elaina Moreno MD 909 [place], [place] 316245 Cardiovascular & Thoracic Surgery 08/06/20 John Webb MD [address] [place] 299015 Cardiovascular Disease 08/25/21 John Webb MD [address] [place] 955725 Cardiovascular Disease 08/25/21 Estella Hassan, [facility] [address] [place], [place] 911416 Assigned MTM Pharmacist 12/09/21 Lindsay Carey OD [address] [facility] [place] [address] Ophthalmology 01/29/22 Richard Kam MD [address] [place] [address] 044535 Assigned Musculoskeletal Provider 08/14/22 [place] [address] [place] PENA, [address] 369807 Assigned Neuroscience Provider 01/01/23 12/03/24 Rosemarie Mcdowell, RN Parachute Line Tier Diabetes Education 03/17/23 Mitra Kendall, LAY OUT INSPECTOR Lead Apprentice Photographer Primary Care - CC 12/12/23 Lizet Mann PA-C [address] [place], [place] 205099 Assigned Cancer Care Provider 01/04/24 Ravi Brownlee MD [address] [place] [address] 887985 Assigned Pulmonology Provider 01/04/24 Manuel Ahn OD 6341 [place], [place] 869572 Software Project Lead 01/05/24 Thalia Charles [facility] [address] [place], [place] [phone] Pharmacist Pharmacy 01/26/24 Gaurav Valenzuela APRN PORTRAIT ARTIST 606 [facility] [address] 106 [place], [place] 722814 Assigned Sleep Provider 02/04/24 Debbie Mann MD 1600 [facility] 200 [place] [address] Cardiovascular Disease 02/24/24 Hakeem Chacko MBBS 2945 [place] [address] Assigned Rheumatology Provider 04/05/24 Debbie Mann MD 1600 [facility] 200 [place] [address] Assigned Heart and Vascular Provider 05/06/24 Timothy Tejada MD 6341 [place] [phone] Ophthalmology 05/29/24 Timothy Tejada MD 6341 [place] [phone] Assigned Surgical Provider 06/03/24 Elsie Roberts APRN PORTRAIT ARTIST [address] [phone] Nurse Practitioner Pain Medicine 10/16/24 documented as of this encounter
--- OUTSIDE RECORDS SUMMARY | 2024-12-06 00:44 | XMS_ITS | Encounter Summary ---
Author Organization [facility] Address [address] [place] [address] Care Team Providers Care Offal Separator Name Role Phone Va Glez MD Primary Care Provider Va Glez MD Unavailable Christy CampuzanoC Unavailable [phone] Hans Cannon MD Unavailable Estella Hassan [facility] Unavailable [phone] Josh Cordero MD, Madhuri Unavailable [phone] John Webb MD Unavailable [phone] John Webb MD Unavailable Estella Hassan [facility] Unavailable [phone] Lindsay Carey OD Unavailable Richard Kam MD Unavailable Gaby Vila DO Unavailable Rosemarie Mcdowell RN Unavailable Mitra Kendall TENANT COORDINATOR Unavailable [phone] Lizet Mann PA-C Unavailable Ravi Brownlee MD Unavailable [phone] Manuel Ahn OD Unavailable Thalia Charles [facility] Unavailable [phone] Gaurav Valenzuela SENIOR J2EE DEVELOPER CEMENT BREAKER Unavailable [phone] Debbie Mann MD Unavailable [phone] Hakeem Chacko MB Unavailable Debbie Mann MD Unavailable [phone] Timothy Tejada MD Unavailable [phone] Timothy Tejada MD Unavailable [phone] Alejandra Elsie Jennifer SENIOR J2EE DEVELOPER CEMENT BREAKER Unavailable + Encounter Details Date Type Department Care Team (Latest Contact Info) Description 10/24/2024 Travel Social History Tobacco Use Types Packs/Day [...] re latives? 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 Gender Identity Not on file Sexual Orientation Not on file Occupation Industry Job Start Date Job End Date Not on file Not on file Not on file Not on file documented as of this encounter Plan of Treatment Upcoming Encounters Date Type Department Care Team (Late st Contact Info) Description 12/11/2024 2:10 PM CDT Therapy Visit [address] [phone] Shanta Cooper, PT 12/14/2024 11:20 AM CDT Office Visit [facility] [address] [place] [phone] Lizet Mann PA-C [address] [place] [address] 12/17/2024 2:10 PM CDT Office Visit [facility] [address] [place] [address] 4th [place] [phone] Richard Kam MD [address] [place] [address] 12/19/2024 8:20 AM CDT Therapy Visit [address] [phone] Shanta Cooper, PT 12/24/2024 5:00 PM CDT Therapy Visit [address] [phone] Pattie Casillas, PT 12/25/2024 10:20 AM CDT Therapy Visit [address] [phone] Shanta Cooper, PT 01/03/2025 1:00 PM CDT Office Visit [facility] [address] [place] [phone] Estella Hassan, [facility] [address] [place] [address] 01/03/2025 1:30 PM CDT Office Visit [facility] [address] [place] [address] [place] [address] [place] [address] 01/08/2025 1:15 PM CDT Office Visit [facility] 2945 [facility] 200 [place] [address] Hakeem Chacko MBBS [address] [place] [address] Scheduled Procedures Name Priority Associated Diagnoses Date/Ti [...] for health insurance by looking in to [employer] and talking with a FRW. Completed 3. I will look for a new job and will access resources that the [employer] offers. . Sarted new job 4. [...] by household income. 2. I will contact [employer] [facility] to ask about medicare plans and if there are saving programs I qualify for by by calling [phone]. 3. I will see if I am eligible for unemployment after losing my job. I will call [phone] to ask for assistance with unemployment application. 4. I will apply for jobs. I will work with [employer] [facility] in finding a job (Empowerment.) 5. I will access [employer] and ask about financial resources (such as [...] Ronnie. 3. I will meet with community odd jobs day worker Manjula Gresham. 4. I will look in to attending an IOP program. [facility] and number provided for [facility] Behavioral Access - [phone] to schedule assessment fr IOP program. 5. I will go to [facility] if I have concerning mental health symptoms. 6. I will access [facility] Crisis if needed by calling [phone]. 7. I will consider calling [facility] Adult Mental health intake at [phone]. documented as of this encounter Visit Diagnoses [...] accurate information and submit it to the [facility]. 3. I will update [facility] Team at outreach. Health Maintenance Due or Overdue 12/16/2023 Patient expresses financial resource strain 12/13 Mental Health Symptoms Need Improvement 04/05/19 Assessment Noted Time PHQ-9 Depression Total Score: 7 09/28/19 11:01 AM CDT documented as of this encounter Care Teams Offal Separator Relationship Specialty [place] [address] [place], [place] [phone] PCP - General Family Practice 07/11/14 [place] [address] [place], [place] [id number] Assigned PCP 12/16/11 Christy Campuzano PA-C [address] [place] [address] 306202 Referring Physician Family Medicine 04/22/20 Hans Cannon MD [address] [place] [address] 248342 Resident Pulmonary Disease 04/22/20 Estella Hassan, [facility] [employer] [place], [place] 291466 Pharmacist Pharmacist 05/26/20 Elaina Moreno MD 9 [place], [place] 346775 Cardiovascular & Thoracic Surgery 08/06/20 John Webb MD [address] 697025 Cardiovascular Disease 08/25/21 John Webb MD [address] 189135 Cardiovascular Disease 08/25/21 Estella Hassan, [facility] [address] [place] [address] Assigned MTM Pharmacist 12/09/21 Lindsay Carey OD [address] [facility] [place] [address] Ophthalmology 01/29/22 Richard Kam MD [address] [place] [address] 360545 Assigned Musculoskeletal Provider 08/14/22 [place] [address] [address] [id number] Assigned Neuroscience Provider 01/01/23 12/03/24 Rosemarie Mcdowell RN Electrical Manager Diabetes Education 03/17/23 Mitra Kendall, TENANT COORDINATOR Lead Retail Sales Clerk Primary Care - CC 12/12/23 Lizet Mann PA-C [address] [place] [place] [address] Assigned Cancer Care Provider 01/04/24 Ravi Brownlee MD [address] [place] [address] Assigned Pulmonology Provider 01/04/24 Manuel Ahn OD [address] [place] [address] Grain Sacker 01/05/24 Thalia Charles, [facility] [address] [place] [address] Pharmacist Pharmacy 01/26/24 Gaurav Valenzuela APRN CEMENT BREAKER 606 [facility] 106 [place] [address] Assigned Sleep Provider 02/04/24 Debbie Mann MD 1600 [facility] 200 [place] [address] Cardiovascular Disease 02/24/24 Hakeem Chacko MBBS 2945 [place] [address] Assigned Rheumatology Provider 04/05/24 Debbie Mann MD 1600 [facility] 200 [place] [address] Assigned Heart and Vascular Provider 05/06/24 Timothy Tejada MD 6341 [place] [phone] Ophthalmology 05/29/24 Timothy Tejada MD 6341 [place] [phone] Assigned Surgical Provider 06/03/24 Elsie Roberts APRN CEMENT BREAKER 1600 [facility] 101 [place], [place] [phone] Nurse Practitioner Pain Medicine 10/16/24 documented as of this encounter
--- OUTSIDE RECORDS SUMMARY | 2024-12-06 00:44 | XMS_ITS | Encounter Summary ---
Author Organization [facility] Address [address] [place] [address] Care Team Providers Care Manager Of Program Name Role Phone Va Glez MD Primary Care Provider [phone] Va Glez MD Unavailable Christy CampuzanoC Unavailable [phone] Hans Cannon MD Unavailable [phone] Estella Hassan [facility] Unavailable Josh Cordero MD, Madhuri Unavailable [phone] John Webb MD Unavailable [phone] John Webb MD Unavailable Estella Hassan [facility] Unavailable [phone] Lindsay Carey OD Unavailable Richard Kam MD Unavailable Gaby Vila DO Unavailable [phone] Rosemarie Mcdowell RN Unavailable Mitra Kendall LINING PRESSER Unavailable [phone] Lizet Mann PA-C Unavailable Ravi Brownlee MD Unavailable [phone] Manuel Ahn OD Unavailable Thalia Charles [facility] Unavailable Gaurav Valenzuela MENTAL RETARDATION NURSE PUBLIC ADDRESS ANNOUNCER Unavailable [phone] Debbie Mann MD Unavailable [phone] Hakeem Chacko MB Unavailable Debbie Mann MD Unavailable [phone] Timothy Tejada MD Unavailable [phone] Timothy Tejada MD Unavailable [phone] Elsie Roberts Jennifer MENTAL RETARDATION NURSE PUBLIC ADDRESS ANNOUNCER Unavailable + Reason for Visit * Reason Onset Date Comments Appointment 10/23/2024 Encounter Details Date Type Department Care Team ([facility] st Contact Info) Description 10/23/2024 Telephone [facility] Neurology [address], [address] [place] [address] Trent Gresham MD 420 [facility] 96 [place] [address] Appointment Social History Tobacco Use Types Packs/Day [...] re latives? Once a week 09/27/2024 Attends [employer] Not on file 09/27 Active Member [...] Date Recorded PHQ-2 Score 2 09/27/2024 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 A voicemail was left with a call back number if the patient has questions or would like to reschedule. documented in this encounter Plan of Treatment Upcoming Encounters Date Type Department Care Team (Late st Contact Info) Description 12/11/2024 2:10 PM CDT Therapy Visit [address] [phone] Shanta Cooper, PT 12/14/2024 11:20 AM CDT Office Visit [address] [phone] Lizet Mann PA-C [address] [place] [address] 12/17/2024 2:10 PM CDT Office Visit [facility] Orthopedic [address] [place] [phone] Richard Kam MD [address] [place] [address] 12/19/2024 8:20 AM CDT Therapy Visit [address] [place] [address] Shanta Cooper, PT 12/24/2024 5:00 PM CDT Therapy Visit [address] [place] [address] Pattie Casillas, PT 12/25/2024 10:20 AM CDT Therapy Visit [address] [place] [address] Allison Shanta, PT 01/03/2025 1:00 PM CDT Office Visit [address] [phone] Estella Hassan, [facility] 30[address] [place] [address] 01/03/2025 1:30 PM CDT Office Visit [address] [phone] [place] [phone] [place] [id number] 01/08/2025 1:15 PM CDT Office Visit [address] [phone] Hakeem Chacko MBBS [address] [place] [address] Scheduled Procedures Name Priority Associated Diagnoses Date/Ti me INJECTION, EPIDURAL, TRANSFO RAMINAL APPROACH Cervical radiculitis RELEASE, CARPAL TUNNEL, ENDOSCOPIC Right carpal tunnel syndrome documented as of this encounter Goals Goal Patient Goal Type Associated Problems Recent Progress Patient-Stated? Author Health Maintenance Care Plan HP GENERAL PROBLEM 100%(10/29/19 23 10:17 AM CDT) No Mitra Kendall, LINING PRESSER Note: Update on 05/25/22 Barriers: Currently without [...] Plan Patient expresses financial resource strain 100%(10/29/19 23 10:17 AM CDT) No Mitra Kendall LSW Note: Updated on 05/25/22 Barriers: Currently not working.Doesn't have insurance Strengths: Getting SSD. Patient expressed understanding of goal: Action steps to achieve this goal: 1. I will apply for unemployment. Decided not to 2. I will explore my options for health insurance by looking in to [employer] and talking with a FRW. Completed 3. I will look for a new job and will access resources that the [employer] offers. . Sarted new job 4. Continue [...] programs I qualify for by by calling [phone]. 3. I will see if I am eligible for unemployment after losing my job. I will call [phone] to ask for assistance with unemployment application. 4. I will apply for jobs. I will work with [employer] in finding a job (Empowerment.) 5. I will access [employer] and ask about financial resources (such as [...] I will continue working with therapist at [facility]. 2. I will establish with Psychiatry. Planning to schedule with Ronnie. 3. I will meet with community house worker Manjula Gresham. 4. I will look in to attending an IOP program. I will discuss with my [facility] therapist and number provided for [facility] Behavioral Access - [phone] to schedule assessment fr IOP program. 5. I will go to [facility] if I have concerning mental health symptoms. 6. I will access [facility] Crisis if needed by calling [phone]. 7. I will consider calling [facility] Adult Mental health intake at [phone]. documented as of this encounter Visit Diagnoses [...] of this encounter Care Teams Manager Of Program Relationship Specialty [place] [address] [place] [address] PCP - General Family Practice 07/11/14 [place] [address] [place] [address] Assigned PCP 12/16/11 Christy Campuzano PA-C [address] [place] [address] 026482 Referring Physician Family Medicine 04/22/20 Hans Cannon MD [address] [place] [address] 860552 Resident Pulmonary Disease 04/22/20 Estella Hassan, [facility] 30[address] [place] [address] Pharmacist Pharmacist 05/26/20 Elaina Moreno MD 909 [place] [address] Cardiovascular & Thoracic Surgery 08/06/20 John Webb MD [address] 296755 Cardiovascular Disease 08/25/21 John Webb MD [address] 553775 Cardiovascular Disease 08/25/21 Estella Hassan, [facility] [address] [place] [address] Assigned MTM Pharmacist 12/09/21 Lindsay Carey OD [address] [place] [address] Ophthalmology 01/29/22 Richard Kam MD 500 [place] [address] Assigned Musculoskeletal Provider 08/14/22 [place] [address] [place] [address] [address] [address] Assigned Neuroscience Provider 01/01/23 12/03/24 Rosemarie Mcdowell, RN Crate Maker Diabetes Education 03/17/23 Mitra Kendall, LINING PRESSER Lead Button Maker Primary Care - CC 12/12/23 Lizet Mann PA-C [address] [place] [address] Assigned Cancer Care Provider 01/04/24 Ravi Brownlee MD 420 [facility] [address] [place] [address] Assigned Pulmonology Provider 01/04/24 Manuel Ahn OD 6341 [place] [address] Hot Bread Baker 01/05/24 Thalia Charles, [facility] [address] [place], [place] [phone] Pharmacist Pharmacy 01/26/24 Gaurav Valenzuela APRN PUBLIC ADDRESS ANNOUNCER [address] [place], [place] [address] Assigned Sleep Provider 02/04/24 Debbie Mann MD 1600 [facility] [address] [place] [address] Cardiovascular Disease 02/24/24 Hakeem Chacko MBBS 2945 [place] [address] Assigned Rheumatology Provider 04/05/24 Debbei Mann MD 1600 [facility] [address] [place] [address] Assigned Heart and Vascular Provider 05/06/24 Timothy Tejada MD [address] [facility] [place] [address] Ophthalmology 05/29/24 Timothy Tejada MD [address] [facility] [place] [address] Assigned Surgical Provider 06/03/24 Elsie Roberts APRN PUBLIC ADDRESS ANNOUNCER [address] [place] [address] Nurse Practitioner Pain Medicine 10/16/24 documented as of this encounter
--- OUTSIDE RECORDS SUMMARY | 2024-12-06 00:45 | XMS_ITS | Encounter Summary ---
Author Organization [facility] Address [address] [place] [address] Care Team Providers Care Date Night Sitter Name Role Phone Va Glez MD Primary Care Provider [phone] Va Glez MD Unavailable Kerry Bernal RN Unavailable [phone] Ravi Barillas DPM Unavailable [phone] Christy Campuzano PA-C Unavailable [phone] Hans Cannon MD Unavailable [phone] Mitra Kendall COMPUTER PERIPHERAL EQUIPMENT OPERATOR Unavailable [phone] Burt Jovel MD Unavailable Estella Hassan [facility] Unavailable Reji Chavez MD Unavailable Josh Cordero MD, Madhuri Unavailable [phone] Josh Cordero MD, Madhuri Unavailable [phone] Kelsi Hassan MD Unavailable [phone] John Webb MD Unavailable John Webb MD Unavailable Estella Hassan [facility] Unavailable Nav Hughes MD Unavailable [phone] Cassandra Mendoza MD Unavailable Estella Hassan RPH Unavailable Mitra Kendall COMPUTER PERIPHERAL EQUIPMENT OPERATOR Unavailable Aurelio Lindsay Kenzie OD Unavailable Ravi Brownlee MD Unavailable Kye Arabella MA Unavailable Richard Kam MD Unavailable Marisol Patel RPH Unavailable Gaby Vila DO Unavailable Rosemarie Mcdowell RN Unavailable Ravi Brownlee MD Unavailable Mitra Kendall COMPUTER PERIPHERAL EQUIPMENT OPERATOR Unavailable Lizet MannC Unavailable Ravi Brownlee MD Unavailable Nav Hughes MD Unavailable [phone] Manuel Ahn OD Unavailable Kye Arabella MA Unavailable Thalia Charles RP Unavailable Gaurav Valenzuela APRN [employer] Unavailable Manuel Ahn OD Unavailable Debbie Mann MD Unavailable Hakeem Chacko Unavailable Debbie Mann MD Unavailable Timothy Tejada MD Unavailable Timothy Tejada MD Unavailable Elsie Roberts APRN [employer] Unavailable + Cristy Morton MD Unavailable Georgie Anguiano PA-C Unavailable Encounter Details Date Type Department Care Team (Late st Contact Info) Description 07/06/2021 [facility] Medical Advice [address] [address] Estella Hassan, [facility] [address] [place] [address] Social History Tobacco Use Types Packs/Day Years [...] points; Administer PHQ-9 if positive 2 05/13/2021 [facility] [place] [facility] - [...] on file 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 [address] [place] [phone] Shanta Cooper, MOIZ 12/14/2024 11:20 AM CDT Office Visit [facility] [address] [place] [address] Lizet Mann PA-C [address] [place] [address] 12/17/2024 2:10 PM CDT Office Visit [facility] [address] [facility] 4[address] [place] [phone] Richard Kam MD [address] [place] [address] 12/19/2024 8:20 AM CDT Therapy Visit [address] [place] [phone] Shanta Cooper, PT 12/24/2024 5:00 PM CDT Therapy Visit [address] [phone] Pattie Casillas, PT 12/25/2024 10:20 AM CDT Therapy Visit [address] [address] Shanta Cooper, PT 01/03/2025 1:00 PM CDT Office Visit [address] [phone] Estella Hassan, [facility] [address] [place] [address] 01/03/2025 1:30 PM CDT Office Visit [address] [phone] Va Glez MD [address] [place] [id number] 01/08/2025 1:15 PM CDT Office Visit [facility] [address] [facility] [address] [place] [phone] Hakeem Chacko MBBS [address] [place] [address] Scheduled Procedures Name Priority Associated Diagnoses Date/Ti me INJECTION, EPIDURAL, TRANSFO RAMINAL APPROACH Cervical radiculitis RELEASE, CARPAL TUNNEL, ENDOSCOPIC Right carpal tunnel syndrome documented as of this encounter Visit Diagnoses Not on filedocumented in this encounter Additional Health Concerns Infection Onset Date Last Indicated Resolved Time Rule Out COVID-19 01/22/2022 01/22/2022 01/24/2022 1:05 PM LEATHER BELT MAKER Rule Out COVID-19 01/25/2022 01/25/2022 01/25/2022 5:21 AM LEATHER BELT MAKER Influenza 01/25/2022 01/25/2022 02/01/2022 11:4 1 PM LEATHER BELT MAKER Rule Out COVID-19 07/29/2022 07/29/2022 07/31/2022 11:17 AM CDT Rule Out COVID-19 03/23/2023 03/23/2023 03/23/2023 6:30 PM LEATHER BELT MAKER COVID-19 03/23/2023 03/23/2023 04/13/2023 11:4 0 PM LEATHER BELT MAKER Rule Out COVID-19 06/05/2023 06/05/2023 06/05/2023 5:53 PM CDT Rule Out COVID-19 11/06/2023 11/06/2023 11/06/2023 11:05 PM CDT Rule Out COVID-19 11/20/2023 11/20/2023 11/20/2023 6:43 PM CDT Rule Out COVID-19 12/27/2023 12/27/2023 12/29/2023 1:37 PM CDT Rule Out COVID-19 03/01/2024 03/01/2024 03/01/2024 1:11 PM LEATHER BELT MAKER Rule Out COVID-19 07/18/2024 07/18/2024 07/19/2024 5:52 PM CDT Rule Out COVID-19 10/17/2024 10/17/2024 10/17/2024 11:23 PM CDT Rule Out C-difficile 11/04/2024 11/04/20242 025 1:55 AM CDT Assessment Noted Time PHQ-9 Depression Total Score: 7 05/15/19 22 7:03 AM LEATHER BELT MAKER documented as of this encounter Care Teams Date Night Sitter Relationship Specialty [place] [address] [place] [address] PCP - General Family Practice 07/11/14 [place] [address] [place] [address] Assigned PCP 12/16/11 Kerry Bernal RN Personal Advocate & Liaison (PAL) 01/08/19 07/10/23 Ravi Barillas DPM [address] [address] Assigned Musculoskeletal Provider 03/23/20 10/30/21 Christy Campuzano PA-C [address] [place] [address] Referring Physician Family Medicine 04/22/20 Hans Cannon MD [address] [place] [address] Resident Pulmonary Disease 04/22/20 Mitra Kendall, COMPUTER PERIPHERAL EQUIPMENT OPERATOR Lead Licensed Marriage And Family Therapist Primary Care - CC 01/08/1901/12 Burt Jovel MD Internal Medicine 05/08/20 12/13/23 Estella Hassan, [facility] [address] [place] [address] Pharmacist Pharmacist 05/26/20 Reji Chavez MD [address] [place] [address] Assigned Heart and Vascular Provider 05/18/20 10/30/21 Elaina Moreno MD [address] [place] [address] Assigned Surgical Provider 05/18/20 11/19/22 Elaina Moreno MD [address] [place] [address] Cardiovascular & Thoracic Surgery 08/06/20 Kelsi Hassan MD [address] [place] [address] Assigned Pulmonology Provider 06/28/21 02/05/22 John Webb MD [address] [place] [address] Cardiovascular Disease 08/25/21 John Webb MD [address] [place] [address] Cardiovascular Disease 08/25/21 Estella Hassan, [facility] [address] [place] [address] Assigned MTM Pharmacist 09/05/21 Nav Hughes MD [address] [place] [address] Assigned Heart and Vascular Provider 10/31/21 09/03/23 Cassandra Mendoza MD ORTHOPAEDIC SURGERY [address] [address] Assigned Musculoskeletal Provider 10/31/21 08/13/22 Estella Hassan, [facility] [address] [place] [address] Assigned MTM Pharmacist 12/09/21 Mitra Kendall, [facility] Lead Licensed Marriage And Family Therapist Primary Care - CC 01/26/2210/28 Lindsay Carey OD [address] [facility] [place] [address] Ophthalmology 01/29/22 Ravi Brownlee MD [address] [facility] [address] [place] [address] Assigned Pulmonology Provider 02/06/22 09/03/23 Arabella Fishman MA Financial Resource Worker 02/22/22 02/23/22 Richard Kam MD [address] [place] [address] Assigned Musculoskeletal Provider 08/14/22 [facility] [address] [place] [address] Pharmacist Pharmacist 11/22/22 01/09/23 [place] [address] [address] , [address] [address] Assigned Neuroscience Provider 01/01/23 12/03/24 Rosemarie Mcdowell, RN Fire Captain Marine Diabetes Education 03/17/23 Ravi Brownlee MD [address] [place] [address] Assigned Heart and Vascular Provider 09/04/23 01/03/24 Mitra Kendall, [facility] Lead Licensed Marriage And Family Therapist Primary Care - CC 12/12/23 Lizet Mann PA-C [address] [place] [address] Assigned Cancer Care Provider 01/04/24 Ravi Brownlee MD [address] [place] [address] Assigned Pulmonology Provider 01/04/24 Nav Hughes MD [address] [facility] [place] [address] Assigned Heart and Vascular Provider 01/04/24 05/05/24 Manuel Ahn, ARA [address] [facility] [place] [id number] Nursing Information Systems Coordinator 01/05/24 Arabella Fishman MA Financial Resource Worker 01/06/24 03/19/24 Thalia Charles, [facility] [address] [place], [place] [phone] Pharmacist Pharmacy 01/26/24 Gaurav Valenzuela APRN [employer] [address] [facility] [address] [place] [address] Assigned Sleep Provider 02/04/24 Manuel Ahn OD [address] [place] [address] Assigned Surgical Provider 02/04/24 06/02/24 Debbie Mann MD [address] [facility] [address] [place] [address] Cardiovascular Disease 02/24/24 Hakeem Chacko MBBS [address] [place] [address] Assigned Rheumatology Provider 04/05/24 Debbie Mann MD [address] [facility] 200 [place] [address] Assigned Heart and Vascular Provider 05/06/24 Timothy Tejada MD [address] [place] [phone] Ophthalmology 05/29/24 Timothy Tejada MD [address] [place] [phone] Assigned Surgical Provider 06/03/24 Elsie Roberts APRN [employer] [address] [facility] [place] [address] [place] [address] Nurse Practitioner Pain Medicine 10/16/24 Cristy Morton MD [address] [facility] [place] [address] Assigned Pediatric Specialist Provider 11/03/24 Georgie Anguiano PA-C [address] [place] [address] Assigned Neuroscience Provider 12/04/24 documented as of this encounter
--- OUTSIDE RECORDS SUMMARY | 2024-12-06 00:45 | XMS_ITS | Clinical Summary ---
Author Organization [facility] [employer] [facility] Address [address] [place] [address] Care Team Providers Care Fire Alarm Inspector Name Role Phone Pcp, No Primary Care [...] on file Legal Sex Male 8:00 AM CONCESSION SUPERVISOR Gender Identity Not on file Sexual Orientation Not on file Obstetrics History Last Filed Vital Signs Vital Sign Reading Time Taken Comments Blood Pressure 126/82 03/10/2013 11:27 AM CONCESSION SUPERVISOR Pulse 77 03/10/2013 11:27 AM CONCESSION SUPERVISOR Temperature 36.8 C (98.2 F) 03/10/2013 11:27 AM CONCESSION SUPERVISOR Respiratory Rate 14 03/10/2013 11:2 7 AM CONCESSION SUPERVISOR Oxygen Saturation 96% 03/10/2013 11: 27 AM CONCESSION SUPERVISOR Inhaled Oxygen Concentration - - Weight 119.6 [...] booster 11/22/2009 11/23/1999 COVID-19 vaccine series ( season) 2024 12/23/2023, 06/13/2023, 07/22/2021, Additional history exists Influenza Vaccine (#1) 2024 RSV vaccine for adults or (1 - 1-dose 75+ series) 2033 Hepatitis B series for 19+ Aged Out N o longer eligible based on patient's age to complete this [place] [address] [facility] Care Teams Fire Alarm Inspector Relationship Specialty Start Date End Date Pcp, No . PCP - General 12/16/10
--- OUTSIDE RECORDS SUMMARY | 2024-12-06 00:45 | XMS_ITS | Data Portability ---
Author Organization [place] [facility], auto[employer] - [facility] [place] Address [address] [address] Assessment Encounter Date Assessment Date Assessment LastModified by Organization Details LastModified Time 09/14/2023 09/14/2023 63-year old male with severe osteoarthritis-re lated right knee pain, significantly impacting daily activities such as walking, climbing stairs, and standing from a seated position. Despite various medical interventions, the pain remains debilitating and refractory to treatment. WOMAC score is 36, indicating substantial impairment. After a thorough discussion of the benefits, risks, and alternatives, including the option of genicular artery embolization (GAE), all of the patient's inquiries were addressed satisfactorily. The patient has opted to proceed with the GAE procedure. He will check with his and will call us. It was emphasized that while this procedure can significantly improve and resolve the chemical inflammatory pain associated with osteoarthritis, it does not address the underlying osteoarthritis or the mechanical pain related to degenerative knee disease. Therefore, while significant pain improvement is expected, complete resolution of pain is not guaranteed. Risk factors: age elevated BMI diabetes hypertension chronic pain smoking substance abuse COPD asthma PAD cardiovascular disease volume overload LE edema CKD solitary kidney liver disease polypharmacy Plan: -Knee radiograph, including weight bearing view -GAE with moderate sedation [email or web address] Not available 09/14/2023 18:00:32 01/11/2024 01/11/2024 I have examined his right wrist and think he can benefit from embolization with imipenem. However, I told him that there as not many published data about this procedure and we can't predict the success rate. He is very insisting to proceed. I told him that I need to discuss this with our colleagues, finance and legal team. [email or web address] Not available 01/11/2024 16:23:39 Plan of Treatment Reminders Order Date Submit Date Provider Last Modified By Organization Details Last Modified Time Details Appointments None recorded. Lab None recorded. Referral None recorded. Procedures None recorded. Surgeries None recorded. Imaging XR, knee, 1 or 2 view - right and left standing knee x-ray ap and lateral, post GAE on right, considering GAE on left 2023 024 [place] [facility], [address], [place], [address], 5 05:02:09 XR, wrist, 3 or more view - Looking for Trapeziomet acarpal Osteoarthri tis, possible embolizatio n candidate, right wrist pain 2023 024 [place] [facility], [address], [place], [address], 4 17:35:34 XR, knee - bilateral, AP and Lat, candidate for GAE 2023 024 [email or web address] Not available 5 05:02:10 Medication Orders naproxen 500 mg tablet 2023 024 [email or web address] [facility]/Pharmacy #[id number], [address] [place], [address], 4 10:18:21 Medrol (Viktor) 4 mg tablets in a dose pack 2023 024 [facility]/Pharmacy #[id number], [address] , [place], [address], 4 10:18:19 Patient TargetsNo targets recorded. Patient InstructionsNo instructions recorded. Reason for Referral None Reported. Results Created Date Observation Date Name Description Value Unit Range Abnormal Flag Note LastModifiedBy Organization Detail LastModifiedTime 12/02/19 24 12/02/2023 XR, knee, 1 or 2 view No observ ation record ed. INTERFACE [facility] [address], [place], [address], 12/02/2023 17:03:53 12/02/19 24 12/02/2023 XR, knee, 1 or 2 view No observ ation record ed. INTERFACE [facility] [address], [place], [address], 12/02/2023 17:03:57 12/02/19 24 12/02/2023 XR, wrist , 3 or more view No observ ation record ed. INTERFACE [facility] [address], [place], [address], 12/02/2023 17:35:34 Result Notes None recorded. Procedures Surgical History Date Name Laterality Status Provider Name and Address Organization Details Recorded Time 10/28/2023 GAE V1 completed Divine Damon MD [address] [facility], [place], [address], [facility] 11/17/2023 16:36:48 Imaging Results None recorded. Procedure Notes None recorded. Medical Equipment None Reported. Allergies No known drug allergies Medications Name Sig Start Date Stop Date Status Note LastModified by Organization Details LastModified Time pioglitazon e 15 mg tablet TAKE 1 TABLET BY MOUTH EVERY DAY active Not Available Not Available No t Available atorvastati n 40 mg tablet TAKE 1 TABLET BY MOUTH EVERY EVENING active Not Available Not Available No t Available venlafaxine ER 37.5 mg capsule,ext ended release 24 hr TAKE 1 CAPSULE BY MOUTH EVERY DAY active Not Available Not Available No t Available prednisone 10 mg tablet TAKE 1 TABLET (10 MG) BY MOUTH DAILY FOR 21 DAYS. active Not Available Not Available No t Available ipratropium 0.5 mg-albutero l 3 mg (2.5 mg base)/3 mL nebulizatio n soln INHALE 3 MLS VIA NEBULIZER 4 TIMES A DAY NEEDED active Not Available Not Available No t Available glipizide ER 10 mg tablet, extended release 24 hr TAKE 2 TABLETS BY MOUTH EVERY DAY active Not Available Not Available No t Available ondansetron HCl 4 mg tablet TAKE 1 TABLET BY MOUTH EVERY 8 HOURS NEEDED FOR NAUSEA active Not Available Not Available No t Available prednisone 20 mg tablet TAKE 1 TABLET BY MOUTH EVERY DAY active Not Available Not Available No t Available glipizide ER 5 mg tablet, extended release 24 hr TAKE 1 TABLET BY MOUTH EVERY DAY active Not Available Not Available No t Available Accu-Chek Softclix Lancets USE TO TEST BLOOD SUGAR 2 TIMES DAILY OR DIRECTED. active Not Available Not Available No t Available omeprazole 40 mg capsule,del ayed release active Not Available Not Available Not Available triamcinolo ne acetonide 0.1 % topical cream APPLY TO AFFECTED AREA TWICE A DAY active Not Available Not Available No t Available benzonatate 100 mg capsule TAKE 1 CAPSULE (100 MG) BY MOUTH 3 TIMES DAILY NEEDED FOR COUGH 09/13 completed Not Available Not Available Not Available fluticasone 500 mcg-salmete rol 50 mcg/dose blistr powdr for inhalation INHALE 1 PUFF INTO THE LUNGS EVERY 12 HOURS. active Not Available Not Available No t Available gabapentin 300 mg capsule TAKE 1 CAPSULE BY MOUTH TWICE A DAY active Not Available Not Available No t Available budesonide 0.5 mg/2 mL suspension for nebulizatio n TAKE 2 MLS (0.5 MG) BY NEBULIZAT ION 2 TIMES DAILY. active Not Available Not Available No t Available amoxicillin 400 mg/5 mL oral suspension TAKE 10 MLS (800 MG) BY MOUTH 2 TIMES DAILY. active Not Available Not Available No t Available lorazepam 1 mg tablet TAKE 1 TABLET (1 MG) BY MOUTH ONCE FOR 1 DOSE. TAKE 30 MINUTES PRIOR TO MRI active Not Available Not Available No t Available zolpidem 10 mg tablet TAKE TABLET BY MOUTH 15 MINUTES PRIOR TO SLEEP, FOR SLEEP STUDY active Not Available Not Available No t Available methylpredn isolone 4 mg tablets in a dose pack TAKE 6 TABLETS ON DAY 1 DIRECTED ON PACKAGE AND DECREASE BY 1 TAB EACH DAY FOR A TOTAL OF 6 DAYS active Not Available Not Available No t Available albuterol sulfate HFA 90 mcg/actuati on aerosol inhaler INHALE 2 PUFFS INTO THE LUNGS EVERY 6 HOURS NEEDED FOR SHORTNESS OF BREATH, WHEEZING OR COUGH. active Not Available Not Available No t Available ondansetron 4 mg disintegrat ing tablet TAKE 1 TABLET BY MOUTH EVERY 12 HOURS NEEDED FOR NAUSEA active Not Available Not Available No t Available topiramate 100 mg tablet TAKE 1 TABLET BY MOUTH EVERY DAY active Not Available Not Available No t Available fluticasone propionate 50 mcg/actuati on nasal spray,suspe nsion INSTILL 1 SPRAY INTO BOTH NOSTRILS DAILY active Not Available Not Available No t Available metformin ER 500 mg tablet,exte nded release 24 hr TAKE 4 TABLETS BY MOUTH DAILY WITH DINNER active Not Available Not Available No t Available naproxen 500 mg tablet TAKE 1 TABLET BY MOUTH TWICE A DAY FOR 7 DAYS active Not Available Not Available No t Available amoxicillin 875 mg-potassiu m clavulanate 125 mg tablet TAKE 1 TABLET BY MOUTH TWICE A DAY FOR 7 DAYS active Not Available Not Available No t Available escitalopra m 10 mg tablet TAKE 1 TABLET (10 MG) BY MOUTH DAILY. active Not Available Not Available No t Available duloxetine 30 mg capsule,del ayed release TAKE 1 CAPSULE BY MOUTH EVERY DAY active Not Available Not Available No t Available Spiriva Respimat 2.5 mcg/actuati on solution for inhalation active Not Available Not Available N ot Available Incruse Ellipta 62.5 mcg/actuati on powder for inhalation active Not Available Not Available N ot Available Accu-Chek Guide test strips USE TO TEST BLOOD SUGAR 2 TIMES DAILY OR DIRECTED. active Not Available Not Available No t Available Accu-Chek Guide Me Glucose Meter USE TO TEST BLOOD SUGAR 2 TIMES DAILY OR DIRECTED. active Not Available Not Available No t Available FreeStyle Levar 2 Sensor kit INJECT 1 EACH SUBCUTANE OUSLY EVERY 14 DAYS TO READ BLOOD SUGARS PER MANUFACTU RER[employer]S INSTRUCTI ONS active Not Available Not Available No t Available Ozempic 1 mg/dose (4 mg/3 mL) subcutaneou s pen injector INJECT 1 MG SUBCUTANE OUS EVERY 7 DAYS active Not Available Not Available No t Available Paxlovid 300 mg (150 mg x 2)-100 mg tablets in a dose pack TAKE 2 TABLETS (NIRMATRE LVIR) AND TAKE 1 TABLET (RITONAVI R) BY MOUTH TWICE A DAY FOR 5 DAYS 09/13 completed Not Available Not Available Not Available Ozempic 2 mg/dose (8 mg/3 mL) subcutaneou s pen injector active Not Available Not Available Not Available Ozempic 0.25 mg or 0.5 mg (2 mg/3 mL) subcutaneou s pen injector INJECT 0.25 MG SUBCUTANE OUS EVERY 7 DAYS FOR 28 DAYS, THEN 0.5 MG EVERY 7 DAYS FOR 90 DAYS. active Not Available Not Available No t Available Vitals Date Recorded Body height Body mass index (BMI) Body weight Heart rate Oxygen saturation Oxygen saturation in Arterial blood by Pulse oximetry Systolic And Diastolic Provider Name and Address Organization Details Last Updated DateTime 4 175.26 cm 44.3 kg/m2 411038. 71 g 72 /min 95 % 95 % 135/83 mm[Hg] Cristobal Cook [place] - [facility] 4 16:17:15 Date Recorded Body height Heart rate Oxygen saturation Oxygen saturation in Arterial blood by Pulse oximetry Systolic And Diastolic Provider Name and Address Organization Details Last Updated DateTime 4 175.26 cm 80 /min 90 % 90 % 122/84 mm[Hg] Paty Hilliard [place] - [facility] 16:41:41 Social History None recorded. Functional Status None recorded. Mental Status None recorded. Family History Nothing Reported. Medical History No medical history recorded. Past Encounters Encounter ID Performer Location Encounter Start Date Encounter Closed Date Diagnosis/Indication Diagnosis SNOMED-CT Code Diagnosis ICD10 Code Diagnosis IMO Codes Diagnosis Note [id number] Divine Damon MD [facility] [address] [facility] [place] [address] 09/14/2023 16:01:39 09/14/2023 16:51:51 Osteoarthritis of right knee joint 5235478080 44697 M17.11 [id number] Divine Damon MD [facility] [address] [facility] [place] [address] 10/28/2023 09:50:01 10/28/2023 13:51:16 Osteoarthritis of right knee joint 1438116085 27849 M17.11 [id number] Chandan Cleveland PA-C [facility] [address] [facility] [place] [address] 11/28/2023 16:18:00 11/28/2023 17:13:09 Osteoarthritis of knee 503263952 M17.9 Approximat chacorta 3 weeks follow-up right GAE with a favorable outcome as indicated by diminished knee pain, functional gain, and no complicati ons.Plan: Encourage PT focusing on muscle strengthen ing to enhance benefit of GAE. Follow-up WOMAC score per protocol. Follow-up clinic visit as needed or at 1 year. Pain of right wrist 3169 [id number] 14538 M25.531 pain in right wrist for years, had steroid injections , asking about embolizati on for treatment. I explained the one joint in the wrist embolizati on has been studied to work and on exam he admits to tenderness over the trapeziome tacarpal joint Osteoarthr itis of left knee joint [id number] 72321 M17.12 considerin g left GAE. WOMAC 43. Happy with result on right. Need x-ray to confirm arthritis [id number] Divine Damon MD [facility] [address] [facility] [place] [address] 01/11/2024 11:57:51 01/11/2024 12:27:07 Health Concerns Section Related Observation LastModified by Organization Detai ls LastModified Time None Recorded Concern Status LastModified by Organization Details LastModified Time None Recorded Advance Directives Directive None Recorded Payers Insurance Date Sequence Insurance Name Policy Number Policy De Jesus Covered Member ID De Jesus Member ID Guarantor Name 10/10/2024 2 [facility] [id number] Peter Devi [id number] Ravi Devi 10/10/2024 1 [facility] (MEDICARE REPLACEMENT/ ADVANTAGE - PPO) [id number] Ravi Devi [id number] Ravi Devi Notes Date Note Type Note Provider Name and Address Organization Details Recorded Time 09/14/2023 text/html Knee painReporte d by PatientHPIFor location of pain, patient reportsright,inside, andoutside. For quality of pain, patient reportsaching/dulland sharp/stabbing. For duration, patient reports3 years. For severity, patient reportswomac score right: 36,pain level right: 8/10, andworsening(depends on the day but when its bad its usually an 8). For impact on daily activities, patient reportswalking,climbi ng stairs,descending stairs,standing from a seated position, andactivities of daily living. For seen by ortho, patient reportsyes(july 2023 [facility] [place]). For previous treatments, patient reportssteroid injectionandbrace. For steroid injections, patient reportsnumber of injections: 3(apr 2022. nov 2022. july 2023.). For previous pt, patient reportslast session: julynddid not help. For previous injury, patient reportsnone. For previous imaging, patient reportsx-rayanddate of last imaging study: apr 2023(pt can't recall but thinks its apr 2023). For risk factors, patient reportselevated bmianddiabetes.AAA Divine Damon MD [address] [facility], [address], [place] [facility] 09/14/2023 18:00:46 11/28/2023 text/html Follow-up right procedure performed on 10/28/2023. The patient is doing well. The pain has decreased significantly. WOMAC is 46, increased from 36 pre-procedure - though with questioning is happy with the procedure and the score of 46 is at it's worse, but consistently his pain is better. The patient denies skin color change at the knee, hematoma or mass in the leg. He is asking about his left knee which is starting to bother him like his right leg did. His WOMAC today for left is 43 He was pleased with the pain relief from embolization so is asking about his right wrist arthritis. Chandan Cleveland PA-C [address] [facility], [address], [place] [facility] 11/28/2023 17:09:54 01/11/2024 text/html Ravi is a pleasant 63 year-old patient who is coming for wrist pain due to OA. He has previously been treated for his knee OA with good results.His wrist is tender with swelling. He has seen a hand surgeon who recommend medical treatment. He would like to know if he is candidate for embolization. Divine Damon MD [address] [facility], [address], [place] [facility] 01/11/2024 16:23:52
[2024-12-06 00:48] LABS: NT Pro B Type NatriureticPept* < 20 pg/mL (See Note)
[2024-12-06 00:54] VITALS: BP 121/70; PULSE 81; RESP 16; TEMP 36.9; O2SAT 98
[2024-12-06 00:55] VITALS: BP 121/70; PULSE 81; RESP 16; TEMP 36.9
== END 2024-12-06 00:55 | disposition home or self-care (01) ==
PROVIDERS: Emergency Provider Family Medicine
DX: R51.9 Headache, unspecified (principal); J44.9 Chronic obstructive pulmonary disease, unspecified
CPT/HCPCS: 36415; 70450; 71046; 83880; 84484; 87631; 93005; 99284; 99285